=== PATIENT | female | born 1990 | race Caucasian/White ===

== ENCOUNTER 2023-01-06 12:25 | Outpatient (RCR) | payer BC, SELFPAY ==
[2023-01-06 13:22] LABS: HCG Quantitative <1 mIU/mL
== END 2023-02-03 16:57 | disposition home or self-care (01) ==
LOC: LAB 12:25
PROVIDERS: Visit Provider Obstetrics & Gynecology
DX: N92.6 Irregular menstruation, unspecified (principal)
CPT/HCPCS: 36415; 84702

== ENCOUNTER 2023-05-20 09:21 | Outpatient (OUT) | payer BC, SELFPAY ==
--- NOTE | 2023-05-20 09:23 | US_ITS ---
[address] [address] Patient Name: TIA MONROE MRN: [id number] date: 1990 Sex: F Assigned Patient Location: [facility] Current Patient Location: [facility] Accession/Order Number: [id number] Exam Date: 05/20/2023 09:25 Report Date: 05/20/2023 10:43 At the request of: DARWIN MONROY Procedure: US OB transvaginal EXAMINATION: US OB transvaginal HISTORY: Missed menses COMPARISON: No relevant comparison available. FINDINGS: GESTATIONAL SAC: Present YOLK SAC: Present x2 POLE: Present x2 CARDIAC: Present x2 UTERUS: Normal size and appearance. OVARIES: Right: Normal. Left: Not seen. CERVIX: 5.0 cm in length and closed. CUL-DE-SAC: Normal. OTHER: None. AGE BY LMP: 8 weeks 3 days GEM BY LMP: 12/27/2023 AGE BY US CRL: Baby 1: 7 weeks 0 days Baby 2: 7 weeks 1 day GEM BY US CRL: Baby 1: 01/06/2024 Baby 2: 01/05/2024 US/US OB transvaginal IMPRESSION: 1. Live twin intrauterine . Electronically authenticated by: BETTYE DANIELS Date: 05/20/2023 10:43
--- OUTSIDE RECORDS SUMMARY | 2023-05-20 09:27 | XMS_ITS | CCD ---
Author Name Unknown Address [address] [place] [address] Organization [facility] Care Team Providers Care Echocardiography Radiology Technologist Name Role Phone Unavailable Primary Care Provider Unavailabl e Judy, Physician Primary Care Provider Unavailabl e HODA MADERA Unavailable Unavailable Primary Care Provider Unavailannika Kim, Physician Primary Care Provider UnavailGermania Rodriguez Unavailable Roslyn Stevenson Unavailable Radha Pantoja Unavailable Yvonne Santos Unavailable Larissa, Regla Corina Unavailable No, Physician Primary Care Provider UnavailGermania Rodriguez CNP Unavailable Roslyn Stevenson MD Unavailable Radha Pantoja MD Unavailable Yvonne Santos MD Unavailable Larissa CNM, Regla Corina Unavailable Unavailable Primary Care Provider UnavailGermania Rodriguez CNP Unavailable Roslyn Stevenson MD Unavailable Radha Pantoja MD Unavailable Yvonne Santos MD Unavailable Larissapetra COTTON, Regla Corina Unavailable Germania Galaviz CNP Unavailable No, Physician Primary Care Provider Unavailabl e NO, PHYSICIAN Primary Care Unavailable NO, PHYSICIAN Primary Care Unavailable NO, PHYSICIAN Primary Care Unavailable GERMANIA VALENTINO Admitting Unavai lable NO, PHYSICIAN Primary Care Unavailable NO, PHYSICIAN Primary Care Unavailable NO, PHYSICIAN Primary Care Unavailable GERMANIA VALENTINO Admitting Unavai lable NO, PHYSICIAN Primary Care Unavailable YVONNE SANTOS Admitting Unavailable Radha Pantoja MD Unavailable Yvonne Santos MD Unavailable Larissa COTTON, Regla Corina Unavailable Ciera PEDRAZA, Narcis Dawit Primary Care Provider PAPADOPOL, NARCIS DAWIT Admitting Unavaila ble PAPADOPOL, NARCIS DAWIT Primary Care Unavaila ble PAPADOPOL, NARCIS DAWIT Admitting Unavaila ble PAPADOPOL, NARCIS DAWIT Primary Care Unavaila ROSLYN Conley Admitting Unavailabl e ROSLYN STEVENSON Attending Unavailabl e NO, PHYSICIAN Primary Care Unavailable YUKO ALBRECHT Consulting Unavailable LELO GALLEGOS Admitting Unavailable NERIS ULLOA Attending Unavailable LELO GALLEGOS Referring Unavailable NO, PHYSICIAN Primary Care Unavailable YVONNE SANTOS Admitting Unavailable NO, PHYSICIAN Primary Care Unavailable YVONNE SANTOS Admitting Unavailable NO, PHYSICIAN Primary Care Unavailable PAPADOPOL, NARCIS DAWIT Admitting Unavaila ble ANGELITO WARD Attending Unavailable PAPADOPOL, NARCIS DAWIT Referring Unavaila ble PAPADOPOL, NARCIS DAWIT Primary Care Unavaila ble PAPADOPOL, NARCIS DAWIT Attending Unavaila ble PAPADOPOL, NARCIS DAWIT Referring Unavaila ble PAPADOPOL, NARCIS DAWIT Primary Care Unavaila ZELDA Mesa Attending Unavailable NO, PHYSICIAN Primary Care Unavailable LELO GALLEGOS Attending Unavailable NO, PHYSICIAN Primary Care Unavailable HOLLAND ANN Attending Unavail able GERMANIA VALENTINO Referring Unavai lable NO, PHYSICIAN Primary Care Unavailable PAPADOPOL, NARCIS DAWIT Attending Unavaila ble PAPADOPOL, NARCIS DAWIT Primary Care Unavaila ble PAPADOPOL, NARCIS DAWIT Attending Unavaila ble PAPADOPOL, NARCIS DAWIT Primary Care Unavaila ble PAPADOPOL, NARCIS DAWIT Attending Unavaila ble PAPADOPOL, NARCIS DAWIT Primary Care Unavaila ble BRIE ROCA Attending Unavailabl e PAPADOPOL, NARCIS DAWIT Primary Care Unavaila ble Unavailable Primary Care Provider UnavailLinda Marie Primary Care Physician [phone] ELIA[address] ., DR GRANADOS Consulting Unavailable ELIANA ., DR GRANADOS Admitting Unavailable ELIANA ., DR GRANADOS Attending Unavailable EILANA ., DR GRANADOS Consulting Unavailable ELIANA ., DR GRANADOS Admitting Unavailable ELIANA ., DR GRANADOS Attending Unavailable ELIANA ., DR GRANADOS Admitting Unavailable ELIANA ., DR GRANADOS Attending Unavailable LEIANA ., DR GRANADOS Attending Unavailable ELIANA ., DR GRANADOS Consulting Unavailable ELIANA ., DR GRANADOS Admitting Unavailable BETTYE DANIELS Consulting Unavailable Linda Sheppard DO Primary Care Provider ALLEGRA QUINN Attending Unavailable MARK DUMONT Referring Unavailable LINDA SHEPPARD Primary Care Unavailable MARK DUMONT Referring Unavailable LINDA SHEPPARD Primary Care Unavailable LINDA SHEPPARD Primary Care Unavailable DIAB Khushi DINH~[id number] STEVIE Attendi rex Unavailable DIAB Khushi DINH~[id number] STEVIE Attendi ng Unavailable CHET BERUMEN Attending Unavailable LINDA SHEPPARD Primary Care Unavailable CHET BERUMEN Attending Unavailable LINDA SHEPPARD Primary Care Unavailable Jonathan Martinez Attending Unavailable Zac Fields Attending Unavailable Linda Sheppard Referring Unavailable Todd Smart Attending Unavailable MD Todd Smart Admitting Unavailable Medications Current Medications Medication Drug Class(es) Dates Sig (Normalized) Sig (Original) albuterol sulfate HFA 108 (90 Base) MCG/ACT inhaler 2 puff (1 source) Start: 03-26-2020 albuterol sulfate HFA 108 (90 Base) MCG/ACT inhaler 2 puff amoxicillin 500 mg oral capsule (9 sources) Penicillin-class Antibacterial Start: 05-10-2023 End: 05-20-2023 take 1 capsule by mouth three times daily amoxicillin (AMOXIL) 500 MG capsule Take 1 capsule by mouth 3 times daily for 10 days 30 capsule 0 05/10/2023 05/20/2023 Active Start: 07-22-2021 End: 08-01-2021 take 1 capsule by mouth twice daily amoxicillin (AMOXIL) 500 MG capsule Take 1 capsule by mouth 2 times daily for 10 days 20 capsule 0 07/22/2021 08/01/2021 Active Start: 06-03-2020 End: 06-16-2020 take 1 capsule by mouth three times daily amoxicillin (AMOXIL) 250 MG capsule Take 250 mg by mouth 3 (three) times a day . 0 06/03/2020 06/11/2020 Discontinued (Patient's Request) amoxicillin 875 mg / clavulanate 125 mg oral tablet (3 sources) Penicillin-class Antibacterial Start: 05-11-2023 End: 05-18-2023 take 1 tablet by mouth every twelve hours Augmentin 875 mg oral tablet = 1 tab(s), Oral, q12hr, X 7 day(s), # 14 tab(s), Refills(s) 0, Pharmacy: [facility], 160, cm, 05/11/23 21:53:00 EST, Height/Length Dosing, 110, kg, 05/11/23 21:53:00 EST, Weight Dosing Start Date: 05/11/23 Stop Date: 05/18/23 Status: Ordered Start: 09-04-2022 End: 09-04-2022 take 1 tablet by mouth twice daily amoxicillin-clavulanate (AUGMENTIN) 875-125 MG per tablet Take 1 tablet by mouth 2 times daily for 7 days 14 tablet 0 09/04/2022 09/04/2022 Discontinued (ERROR) bacitracin 0.5 unt/mg topical ointment (1 source) Start: 09-04-2022 End: 09-14-2022 bacitracin 500 UNIT/GM ointment Apply topically 2 times daily. 14 g 0 09/04/2022 09/14/2022 Active baclofen 10 mg oral tablet (3 sources) gamma-Aminobutyric Acid-ergic Agonist Start: 04-23-2021 End: 07-22-2021 take 1 tablet by mouth three times daily as needed baclofen (LIORESAL) 10 MG tablet Take 10 mg by mouth 3 (three) times a day as needed . 0 04/24/2021 Active betamethasone 1 mg/ml topical cream (1 source) Corticosteroid Start: 11-03-2019 End: 11-10-2019 betamethasone valerate (VALISONE) 0.1 % cream Apply topically 2 times daily. 15 g 0 11/03/2019 11/10/2019 Active blood-glucose meter kit (4 sources) Start: 06-09-2020 blood-glucose meter kit Use as instructed to check BG QID Dx O24.14 . 1 each 0 06/09/2020 Active brompheniramine maleate 0.4 mg/ml / dextromethorphan hydrobromide 2 mg/ml / pseudoephedrine hydrochloride 6 mg/ml oral solution (2 sources) alpha-Adrenergic Agonist, Uncompetitive C-qfqrxs-N-aspartat e Receptor Antagonist, Sigma-1 Agonist Start: 10-12-2021 End: 11-11-2021 take 5 mL by mouth four times daily as needed for cough brompheniramine-ps eudoephedrine-DM (BROMFED DM) 2-30-10 MG/5ML syrup Take 5 mLs by mouth 4 times daily as needed for Congestion or Cough 240 mL 1 10/12/2021 11/11/2021 Active Start: 11-07-2020 End: 11-12-2020 take 5 mL by mouth three times daily as needed for cough kspffqnfpcmlzab-ovnotzgftsorraf-YH 2-30- 10 MG/5ML syrup Take 5 mLs by mouth 3 times daily as needed for Congestion or Cough 100 mL 0 11/07/2020 11/12/2020 Active cariprazine 1.5 mg oral capsule (7 sources) Atypical Antipsychotic Start: 04-01-2021 End: 05-11-2022 take 1 capsule by mouth once daily Vraylar 1.5 mg capsule Take 1.5 mg by mouth daily . 0 04/01/2021 Active chlorhexidine gluconate 1.2 mg/ml mouthwash (2 sources) Start: 05-11-2023 take 0.018 g by mouth twice daily Peridex 0.12% Liquid 0.018 gm, 15 mL, Oral, BID, 480 mL, Refill(s) 0, (swish and spit; do not swallow), [facility], 160, cm, 05/11/23 21:53:00 EST, Height/Length Dosing, 110, kg, 05/11/23 21:53:00 EST, Weight Dosing Start Date: 05/11/23 Status: Ordered clindamycin 300 mg oral capsule (3 sources) Lincosamide Antibacterial Start: 05-19-2022 End: 05-26-2022 take 1 capsule by mouth three times daily clindamycin (CLEOCIN) 300 MG capsule Take 1 capsule by mouth 3 times daily for 7 days 21 capsule 0 05/19/2022 05/26/2022 Active Start: 02-15-2020 End: 02-15-2020 clindamycin (CLEOCIN) capsul e 300 mg Start: 02-15-2020 End: 02-22-2020 take 1 capsule by mouth three times daily clindamycin (CLEOCIN) 300 MG capsule Take 1 capsule by mouth 3 times daily for 7 days 21 capsule 0 02/15/2020 02/22/2020 Active cyclobenzaprine hydrochloride 10 mg oral tablet (2 sources) Muscle Relaxant Start: 05-11-2022 End: 05-21-2022 take 1 tablet by mouth three times daily as needed for muscle spasms cyclobenzaprine (FLEXERIL) 10 MG tablet Take 1 tablet by mouth 3 times daily as needed for Muscle spasms 9 tablet 0 05/11/2022 05/21/2022 Active Dextromethorphan / guaiFENesin (2 sources) Uncompetitive F-qdjpnk-K-asparta te Receptor Antagonist, Sigma-1 Agonist End: 06-24-2020 Dextromethorphan-gua iFENesin (ROBITUSSIN DM PO) Take by mouth 0 06/24/2020 Discontinued (LIST CLEANUP) Dextromethorphan -guaiFENesin (ROBITUSSIN DM PO) Take by mouth 0 Active diclofenac sodium 75 mg delayed release oral tablet (4 sources) Nonsteroidal Anti-inflammatory Drug Start: 09-04-2022 End: 05-10-2023 take 1 tablet by mouth twice daily as needed for pain diclofenac (VOLTAREN) 75 MG EC tablet Take 1 tablet by mouth 2 times daily as needed for Pain (please take with food) 20 tablet 0 09/04/2022 05/10/2023 Discontinued (LIST CLEANUP) Start: 05-19-2022 End: 09-04-2022 take 1 tablet by mouth twice daily as needed for pain diclofenac (VOLTAREN) 75 MG EC tablet Take 1 tablet by mouth 2 times daily as needed for Pain 20 tablet 0 05/19/2022 09/04/2022 Discontinued (Alternate therapy) doxycycline hyclate 100 mg oral tablet (1 source) Tetracycline-class Drug Start: 11-20-2019 End: 11-30-2019 take 1 tablet by mouth twice daily doxycycline hyclate (VIBRA-TABS) 100 MG tablet Take 1 tablet by mouth 2 times daily for 10 days 20 tablet 0 11/20/2019 11/30/2019 Active escitalopram 10 mg oral tablet (7 sources) Serotonin Reuptake Inhibitor Start: 04-07-2021 take 0.5 tablet by mouth once daily, then take 1 tablet by mouth once daily escitalopram oxalate (LEXAPRO) 10 MG tablet TAKE 1/2 (ONE-HALF) OF A TABLET BY MOUTH daily for 7 (SEVEN) days then take 1 (ONE) tablet by mouth daily 0 04/07/2021 Active End: 05-11-2022 Escitalopram Oxalate (LEXAPR O PO) Take by mouth 0 05/11/2022 Discontinued (LIST CLEANUP) Escitalopram Oxa late (LEXAPRO PO) Take by mouth 0 Active Ethinyl Estradiol / Norgestrel (2 sources) Estrogen Start: 12-29-2020 End: 12-29-2021 take 1 tablet by mouth once daily norgestrel-ethinyl estradioL (LO/OVRAL) 0.3-30 mg-mcg per tablet Take 1 (one) tablet by mouth daily . 30 tablet 11 12/29/2020 12/29/2021 Active ferrous sulfate 325 mg oral tablet (4 sources) Start: 05-23-2020 take 1 tablet by mouth once daily ferrous sulfate 325 (65 FE) MG tablet Take 1 tablet by mouth daily . 0 05/23/2020 Active hydrOXYzine hydrochloride 25 mg oral tablet (3 sources) Antihistamine Start: 11-03-2019 End: 11-13-2019 take 1 tablet by mouth three times daily as needed hydrOXYzine (ATARAX) 25 MG tablet Take 1 tablet by mouth 3 times daily as needed for Itching 15 tablet 0 11/03/2019 11/13/2019 Active Start: 02-25-2018 End: 06-13-2019 take 1 capsule by mouth three times daily as needed hydrOXYzine (VISTARIL) 25 MG capsule Take 25 mg by mouth 3 times daily as needed 0 02/25/2018 06/13/2019 Discontinued (LIST CLEANUP) 100 ml levoFLOXacin 5 mg/ml injection (1 source) Quinolone Antimicrobial Start: 06-14-2019 levofloxacin (LEVAQUIN) 500 MG/100ML infusion 500 mg lidocaine hydrochloride 20 mg/ml mucous membrane topical solution (4 sources) Antiarrhythmic, Amide Local Anesthetic Start: 05-19-2022 lidocaine viscous hc l (XYLOCAINE) 2 % solution 15 mL Start: 02-15-2020 lidocaine visc ous hcl (XYLOCAINE) 2 % solution 15 mL Start: 11-20-2019 End: 11-20-2019 lidocaine 1 % injection 5 mL Start: 06-14-2019 End: 06-17-2019 lidocaine (LIDODERM) 1 patch metFORMIN hydrochloride 500 mg oral tablet (5 sources) Biguanide Start: 06-29-2022 take 500 mg by mouth once daily Glucophage 500 mg, Oral, Daily, Refills(s) 0 Start Date: 06/29/22 Status: Ordered End: 05-10-2023 take 1 tablet by mouth once daily at breakfast metFORMIN (GLUCOPHAGE-XR) 500 MG extended release tablet Take 1 tablet by mouth daily (with breakfast) 0 05/10/2023 Discontinued (LIST CLEANUP) metroNIDAZOLE 500 mg oral tablet (2 sources) Nitroimidazole Antimicrobial Start: 03-23-2021 End: 04-02-2021 take 1 tablet by mouth three times daily metroNIDAZOLE (FLAGYL) 500 MG tablet Take 1 tablet by mouth 3 times daily for 10 days 30 tablet 0 03/23/2021 04/02/2021 Active Start: 11-20-2019 End: 11-30-2019 take 1 tablet by mouth three times daily metroNIDAZOLE (FLAGYL) 500 MG tablet Take 1 tablet by mouth 3 times daily for 10 days 30 tablet 0 11/20/2019 11/30/2019 Active mupirocin 0.02 mg/mg topical ointment (2 sources) RNA Synthetase Inhibitor Antibacterial Start: 09-04-2022 End: 09-04-2022 mupirocin (BACTROBAN) 2 % ointment Apply topically 3 times daily. 3 g 0 09/04/2022 09/04/2022 Discontinued (ERROR) Start: 03-23-2021 End: 03-30-2021 mupirocin (BACTROBAN) 2 % oi ntment Apply topically 3 times daily. 3 g 0 03/23/2021 03/30/2021 Active naltrexone 380 mg injection (5 sources) Opioid Antagonist Start: 05-21-2019 naltrexone microspheres (VivitroL) Inject 380 (three hundred eighty) mg into the shoulder, thigh, or buttocks every 30 (thirty) days . 1 each 3 05/21/2019 Active Non-Formulary Medication (3 sources) Start: 04-23-2011 Non-Formulary Medication Start Date: 04/23/11 Status: Ordered oxyCODONE hydrochloride 5 mg oral tablet (1 source) Opioid Agonist Start: 05-13-2023 End: 05-16-2023 take 1 tablet by mouth every six hours oxyCODONE 5 mg Tab 5 mg = 1 tab(s), Oral, q6hr, X 3 day(s), # 15 tab(s), Refills(s) 0, Pharmacy: [facility], 160, cm, 05/13/23 11:33:00 EST, Height/Length Dosing, 109.3, kg, 05/13/23 11:33:00 EST, Weight Dosing Start Date: 05/13/23 Stop Date: 05/16/23 Status: Ordered PARoxetine hydrochloride 20 mg oral tablet (2 sources) Serotonin Reuptake Inhibitor Start: 04-29-2021 take 0.5 tablet by mouth once daily, then take 1 tablet by mouth once daily PARoxetine (PAXIL) 20 MG tablet TAKE 1/2 (ONE-HALF) OF A TABLET BY MOUTH DAILY FOR 7 DAYS THEN TAKE 1 TABLET BY MOUTH DAILY 0 04/29/2021 Active vitamin with Ca-Iron-FA 27-1 mg Tab (7 sources) Start: 02-02-2021 take 1 tablet by mouth once daily vitamin with Ca-Iron-FA 27-1 mg Tab Take 1 (one) tablet by mouth daily . 90 tablet 3 02/02/2021 Active Start: 01-02-2020 take 1 tablet by harrison th once daily vitamin with Ca-Iron-FA 27-1 mg Tab Take 1 (one) tablet by mouth daily . 90 tablet 3 01/02/2020 Active progesterone (ENDOMETRIN) 100 MG suppository (1 source) progesterone (ENDOMETRIN) [address] 1 suppository vaginally daily 0 Active QUEtiapine 50 mg oral tablet (7 sources) Atypical Antipsychotic Start: 04-01-19 take 1 tablet by mouth once daily QUEtiapine (SEROQUEL) 50 MG tablet Take 50 mg by mouth nightly . 0 04/01/2021 Active End: 05-11-2022 take 1 tablet by mouth once daily QUEtiapine (SEROQUEL XR) 50 MG extended release tablet Take 50 mg by mouth nightly 0 05/11/2022 Discontinued (LIST CLEANUP) sodium chloride 0.111 meq/ml nasal solution (9 sources) Start: 11-07-2020 End: 07-22-2021 sodium chloride (OCEAN) 0.65 % nasal spray 1 spray by Nasal route as needed for Congestion 1 each 0 11/07/2020 07/22/2021 Discontinued (LIST CLEANUP) Start: 03-26-2020 End: 03-26-2020 0.9 % sodium chloride bolus Start: 06-14-2019 End: 06-14-2019 0.9 % sodium chloride bolus sulfamethoxazole 800 mg / trimethoprim 160 mg oral tablet (1 source) Dihydrofolate Reductase Inhibitor Antibacterial, Sulfonamide Antimicrobial Start: 03-23-2021 End: 04-02-2021 take 1 tablet by mouth twice daily sulfamethoxazole-trimethoprim (BACTRIM DS) 800-160 MG per tablet Take 1 tablet by mouth 2 times daily for 10 days 20 tablet 0 03/23/2021 04/02/2021 Active Completed/Discontinued Medications Medication Drug Class(es) Dates Sig (Normalized) Sig (Original) acetaminophen 325 mg oral tablet (12 sources) Start: 06-14-2019 End: 06-17-2019 take 1 tablet by mouth every six hours as needed acetaminophen (TYLENOL) tablet 650 mg End: 05-11-2022 take 2 tablets by mouth every six hours as needed for pain acetaminophen (TYLENOL) 500 MG tablet Take 1,000 mg by mouth every 6 hours as needed for Pain 0 05/11/2022 Discontinued (LIST CLEANUP) acetaminophen 325 mg / HYDROcodone bitartrate 5 mg oral tablet (5 sources) Opioid Agonist Start: 05-11-2022 End: 05-11-2022 HYDROcodone-acetaminophen (NORCO) 5-325 MG per tablet 2 tablet End: 05-10-2023 take 1 tablet by mouth every six hours as needed for pain HYDROcodone-acetaminophen (NORCO) 5-325 MG per tablet Take 1 tablet by mouth every 6 hours as needed for Pain. 0 05/10/2023 Discontinued (LIST CLEANUP) [id number] 200 actuat albuterol 0.09 mg/actuat metered dose inhaler (3 sources) beta2-Adrenergic Agonist Start: 10-12-2021 End: 05-11-2022 take 2 puff(s) by inhalation four times daily as needed for wheezing albuterol sulfate HFA (VENTOLIN HFA) 108 (90 Base) MCG/ACT inhaler Inhale 2 puffs into the lungs 4 times daily as needed for Wheezing 18 g 0 10/12/2021 05/11/2022 Discontinued (LIST CLEANUP) albuterol 0.833 mg/ml / ipratropium bromide 0.167 mg/ml inhalation solution (1 source) Anticholinergic, beta2-Adrenergic Agonist Start: 10-12-2021 End: 10-12-2021 ipratropium-albut elton (DUONEB) nebulizer solution 1 ampule albuterol sulfate HFA 108 (90 Base) MCG/ACT inhaler 4 puff (1 source) Start: 03-26-2020 End: 03-26-2020 albuterol sulfate HFA 108 (90 Base) MCG/ACT inhaler 4 puff aluminum hydroxide 40 mg/ml / magnesium hydroxide 40 mg/ml / simethicone 4 mg/ml oral suspension (1 source) Start: 06-14-2019 End: 06-17-2019 take 30 mL by mouth every four hours as needed 30 mL, Oral, Every 4 hours PRN, indigestion, Starting [facility] 06/14/19 at 0831 azithromycin 250 mg oral tablet (3 sources) Macrolide Antimicrobial Start: 03-26-2020 End: 03-26-2020 azithromycin (ZITHROMAX) tablet 500 mg Start: 03-26-2020 End: 03-30-2020 take 1 tablet by mouth once daily azithromycin (ZITHROMAX) 250 MG tablet Indications: Atypical pneumonia Take 1 tablet by mouth daily for 4 days 4 tablet 0 03/26/2020 03/30/2020 Active Start: 11-20-2019 End: 11-20-2019 azithromycin (ZITHROMAX) tab let 1,000 mg buprenorphine 2 mg / naloxone 0.5 mg sublingual tablet (2 sources) Partial Opioid Agonist, Opioid Antagonist Start: 02-26-2018 End: 06-13-2019 buprenorphine-naloxone (SUBOXONE) 2-0.[address] 1 tablet under the tongue daily as needed.. 0 02/26/2018 06/13/2019 Discontinued (LIST CLEANUP) cefTRIAXone 500 mg injection (1 source) Cephalosporin Antibacterial Start: 11-20-2019 End: 11-20-2019 cefTRIAXone (ROCEPHIN) injection 250 mg dicyclomine hydrochloride 20 mg oral tablet (2 sources) Anticholinergic Start: 02-26-2018 End: 06-13-2019 take 1 tablet by mouth every eight hours as needed dicyclomine (BENTYL) 20 MG tablet Take 20 mg by mouth every 8 hours as needed 0 02/26/2018 06/13/2019 Discontinued (LIST CLEANUP) 1 ml diphenhydrAMINE hydrochloride 50 mg/ml cartridge (1 source) Histamine-1 Receptor Antagonist Start: 06-14-2019 End: 06-14-2019 diphenhydrAMINE (BENADRYL) injection 25 mg Start: 06-14-2019 End: 06-14-2019 diphenhydrAMINE (BENADRYL) i njection 25 mg etonogestrel 68 mg drug implant (2 sources) Progestin End: 06-13-2019 etonogestrel (NEXPLANON) 68 MG implant 68 mg by Subdermal route once 0 06/13/2019 Discontinued (LIST CLEANUP) gabapentin 300 mg oral capsule (3 sources) Anti-epileptic Agent Start: 02-25-2018 End: 06-17-2019 gabapentin (NEURONTIN) capsule 300 mg ibuprofen 800 mg oral tablet (3 sources) Nonsteroidal Anti-inflammatory Drug Start: 05-11-2022 End: 05-19-2022 take 1 tablet by mouth every eight hours as needed for pain ibuprofen (ADVIL;MOTRIN) 800 MG tablet Take 1 tablet by mouth every 8 hours as needed for Pain 30 tablet 0 05/11/2022 05/19/2022 Discontinued (DUPLICATE) End: 02-15-2020 take 3 tablets by mouth every six hours as needed for pain ibuprofen (ADVIL;MOTRIN) 200 MG tablet Take 600 mg by mouth every 6 hours as needed for Pain 0 02/15/2020 Discontinued (Alternate therapy) iopamidol (ISOVUE-370) 76 % injection 75 mL (1 source) Start: 06-13-2019 End: 06-13-2019 iopamidol (ISOVUE-370) 76 % injection 75 mL 2 ml ketorolac tromethamine 30 mg/ml cartridge (13 sources) Nonsteroidal Anti-inflammatory Drug, Cyclooxygenase Inhibitor Start: 09-04-2022 End: 09-04-2022 ketorolac (TORADOL) injection 60 mg Start: 05-19-2022 End: 05-19-2022 ketorolac (TORADOL) injectio n 30 mg Start: 05-11-2022 End: 05-11-2022 ketorolac (TORADOL) injectio n 60 mg Start: 04-23-2021 End: 07-22-2021 take 1 tablet by mouth every eight hours as needed ketorolac (TORADOL) 10 mg tablet Take 10 mg by mouth every 8 (eight) hours as needed . 0 04/24/2021 Active Start: 12-27-2020 End: 12-27-2020 ketorolac (TORADOL) injectio n 30 mg Start: 02-15-2020 ketorolac (TOR ADOL) injection 60 mg Start: 02-15-2020 End: 11-07-2020 take 1 tablet by mouth every six hours as needed for pain ketorolac (TORADOL) 10 MG tablet Take 1 tablet by mouth every 6 hours as needed for Pain 20 tablet 0 02/15/2020 11/07/2020 Discontinued (Therapy completed) Start: 06-13-2019 End: 06-13-2019 ketorolac (TORADOL) injectio n 30 mg magnesium hydroxide 80 mg/ml oral suspension (1 source) Start: 06-14-2019 End: 06-17-2019 take 2400 mg by mouth once daily as needed for constipation 2,400 mg (30 mL), Oral, Daily PRN, constipation, For constipation., Starting [facility] 06/14/19 at 0831 naloxone (NARCAN) injection 0.1 mg (1 source) Start: 06-14-2019 End: 06-17-2019 naloxone (NARCAN) injection 0.1 mg 2 ml ondansetron 2 mg/ml injection (4 sources) Serotonin-3 Receptor Antagonist Start: 06-14-2019 End: 06-14-2019 ondansetron (ZOFRAN) injection 4 mg Start: 06-13-2019 End: 06-13-2019 ondansetron (ZOFRAN) injecti on 4 mg Start: 02-26-2018 End: 06-13-2019 take 1 tablet by mouth every eight hours as needed ondansetron (ZOFRAN-ODT) 4 MG disintegrating tablet Take 4 mg by mouth every 8 hours as needed 0 02/26/2018 06/13/2019 Discontinued (LIST CLEANUP) ondansetron (ZOFRAN-ODT) disintegrating tablet 4 mg (1 source) Start: 06-14-2019 End: 06-17-2019 take 1 tablet by mouth every six hours as needed ondansetron (ZOFRAN-ODT) disintegrating tablet 4 mg 2 ml orphenadrine citrate 30 mg/ml injection (2 sources) Muscle Relaxant Start: 05-19-2022 End: 05-19-2022 orphenadrine (NORFLEX) injection 60 mg Start: 05-11-2022 End: 05-11-2022 orphenadrine (NORFLEX) injec tion 60 mg predniSONE 20 mg oral tablet (6 sources) Start: 10-12-2021 End: 10-12-2021 predniSONE (DELTASONE) table t 60 mg Start: 10-12-2021 End: 05-11-2022 take 1 tablet by mouth once daily predniSONE (DELTASONE) 50 MG tablet Take 50mg po qd x 5 days QS for 5 days 5 tablet 0 10/12/2021 05/11/2022 Discontinued (LIST CLEANUP) Start: 11-03-2019 End: 11-20-2019 predniSONE (DELTASONE) 10 MG tablet 6 for 2 days, 5 for 2 days, 4 for 2 days, 3 for 2 days, 2 for 2 days, 1 for 2 days. 42 tablet 0 11/03/2019 11/20/2019 Discontinued (Therapy completed) Vit-Fe Fumarate-FA ( VITAMINS PO) (3 sources) End: 11-07-2020 Vit-Fe Fumarate-FA ( VITAMINS PO) Take by mouth 0 11/07/2020 Discontinued (Therapy completed) Vit-Fe Fumarate-FA ( VITAMINS PO) Take by mouth 0 Active technetium (Tc-99m) mebrofenin (CHOLETEC) injection 6 millicurie (1 source) Start: 06-15-2019 End: 06-15-2019 technetium (Tc-99m) mebrofenin (CHOLETEC) injection 6 millicurie traMADol hydrochloride 50 mg oral tablet (1 source) Opioid Agonist Start: 06-14-2019 End: 06-17-2019 take 1 tablet by mouth every six hours as needed traMADoL (ULTRAM) tablet 50 mg traZODone hydrochloride 50 mg oral tablet (2 sources) Serotonin Reuptake Inhibitor Start: 02-25-2018 End: 06-13-2019 take 1 tablet by mouth once daily as needed traZODone (DESYREL) 50 MG tablet Take 50 mg by mouth nightly as needed 0 02/25/2018 06/13/2019 Discontinued (LIST CLEANUP) Problems Active Problems Problem Classification Problem Date Documented Date Episodic/Chronic Abdominal pain (1 source) Abdominal pain; Translations: [Abdominal pain, unspecified abdominal location] Episodic Acute bronchitis (1 source) Acute bronchitis; Translations: [Acute bronchitis, unspecified] Episodic Anxiety disorders (20 sources) Anxiety; Translations: [Anxiety disorder, unspecified] Onset: 06-25-2010 06-25-2010 Chronic Disorders of teeth and jaw (17 sources) Toothache; Translations: [Acute gingivitis] Onset: 05-19-2022 Episodic Female infertility (2 sources) Female infertility associated with anovulation; Translations: [Female infertility associated with anovulation] Onset: 12-27-2022 Chronic Hemorrhoids (1 source) Hemorrhoids; Translations: [Unspecified hemorrhoids] Episodic Hepatitis (5 sources) Viral hepatitis without hepatic coma; Translations: [Viral hepatitis C] 06-29-2022 Episodic Immunizations and screening for infectious disease (20 sources) Patient encounter status; Translations: [Encounter for screening for infections with a predominantly sexual mode of transmission] Onset: 12-20-2016 Resolved: 01-02-2020 01-02-2020 Episodic Menstrual disorders (19 sources) Spasmodic dysmenorrhea; 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-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 Mood disorders (19 sources) Depressive disorder; Translations: [Major depressive disorder, single episode, unspecified] Onset: 06-25-2010 06-25-2010 Chronic Other connective tissue disease (1 source) Masseter spasm; Translations: [Other muscle spasm] Episodic Other endocrine disorders (3 sources) Polycystic ovary syndrome 06-29-2022 Chronic Other endocrine disorders (4 sources) Polycystic ovarian syndrome; Translations: [POLYCYSTIC OVARIAN SYNDROME] Onset: 06-29-2022 Chronic Other infections; including parasitic (1 source) Infection by Trichomonas; Translations: [Trichimoniasis] Episodic Other nervous system disorders (1 source) Acute postoperative pain; Translations: [Other acute postprocedural pain] Episodic Other nutritional; endocrine; and metabolic disorders (1 source) Hyperbilirubinemia; Translations: [Hyperbilirubinemia] Chronic Other nutritional; endocrine; and metabolic disorders (6 sources) Overweight; Translations: [Over weight] Onset: 12-20-2016 12-20-2016 Chronic Other nutritional; endocrine; and metabolic disorders (8 sources) Body mass index 40+ - severely obese; Translations: [Body mass index (BMI) 40.0-44.9, adult] Onset: 12-29-2020 12-29-2020 Chronic Other and delivery including normal (1 source) Normal ; Translations: [Encounter for supervision of normal , unspecified, first trimester] Onset: 05-11-2023 Episodic Other screening for suspected conditions (not mental disorders or infectious disease) (20 sources) Cancer cervix - screening done; Translations: [Liver function tests abnormal] Onset: 12-20-2016 Resolved: 01-02-2020 12-20-2016 Episodic Other upper respiratory infections (3 sources) Acute frontal sinusitis; Translations: [Acute frontal sinusitis, unspecified] Episodic Pneumonia (except that caused by tuberculosis or sexually transmitted disease) (1 source) Atypical pneumonia; Translations: [Atypical pneumonia] Episodic Residual codes; unclassified (3 sources) Sleep apnea 06-29-2022 Chronic Residual codes; unclassified (1 source) At risk of disease; Translations: [Other specified personal risk factors, not elsewhere classified] Episodic Skin and subcutaneous tissue infections (1 source) Omphalitis; Translations: [Omphalitis not of ] Episodic Skin and subcutaneous tissue infections (1 source) Furuncle of left axilla; Translations: [Furuncle of left axilla] Spondylosis; intervertebral disc disorders; other back problems (1 source) Chronic low back pain; Translations: [Chronic bilateral low back pain without sciatica] Episodic Sprains and strains (3 sources) Strain of thoracic region; Translations: [Strain of muscle and tendon of back wall of thorax, initial encounter] Episodic Substance-related disorders (20 sources) History of drug abuse; Translations: [Drug abuse in remission] Onset: 06-25-2010 Resolved: 01-02-2020 06-25-2010 Chronic Substance-related disorders (1 source) Accidental heroin overdose; Translations: [Accidental overdose of heroin, initial encounter ([facility])] Episodic Substance-related disorders (1 source) Opioid abuse, in remission; Translations: [History of opioid abuse] Onset: 03-17-2020 03-17-2020 Unclassified (1 source) worsening facial pain Onset: 05-10-2023 Unclassified (2 sources) Ankle Injury; Translations: [Ankle Injury] Onset: 09-04-2022 Urinary tract infections (1 source) Urinary tract infectious disease; Translations: [Urinary tract infection with hematuria, site unspecified] Episodic Viral infection (2 sources) Viral disease; Translations: [Viral infection, unspecified] Episodic Past or Other Problems Problem Classification Problem Date Documented Date Episodic/Chronic Administrative/socia l admission (14 sources) Admission statuses; Translations: [snf (current) use of opiate analgesic] Onset: 05-18-2019 05-18-2019 Episodic Allergic reactions (1 source) Contact dermatitis due to poison arabella; Translations: [Poison arabella] Episodic Contraceptive and procreative management (20 sources) Contraception ; Translations: [Patient encounter status] Onset: 12-20-2016 Resolved: 01-02-2020 12-20-2016 Episodic Diabetes or abnormal glucose tolerance complicating ; childbirth; or the puerperium (19 sources) Gestational diabetes mellitus; Translations: [Gestational diabetes mellitus in , diet controlled] Onset: 06-24-2020 Resolved: 12-29-2020 Episodic Inflammatory diseases of female pelvic organs (15 sources) Acute vaginitis; Translations: [Bacterial vaginosis] Onset: 12-20-2016 Resolved: 01-02-2020 12-20-2016 Episodic Mycoses (14 sources) Candidal vulvovaginitis; Translations: [Candidiasis of vulva and vagina] Onset: 12-20-2016 Resolved: 01-02-2020 12-20-2016 Episodic Nausea and vomiting (19 sources) Nausea; Translations: [Nausea] Onset: 04-08-2011 04-08-2011 Episodic Other complications of (14 sources) Uterine scar from previous surgery in , childbirth and the puerperium; Translations: [Maternal care for low transverse scar from previous delivery] Onset: 12-20-2016 12-20-2016 Episodic Other connective tissue disease (1 source) Other muscle spasm; Translations: [Other muscle spasm] Onset: 05-11-2022 Episodic Other female genital disorders (14 sources) Vaginal discharge; Translations: [Other specified noninflammatory disorders of vagina] Onset: 12-20-2016 Resolved: 01-02-2020 12-20-2016 Episodic Other infections; including parasitic (14 sources) Trichomonal vulvovaginitis; Translations: [Trichomonal vulvovaginitis] Onset: 12-20-2016 Resolved: 01-02-2020 12-20-2016 Episodic Other injuries and conditions due to external causes (9 sources) Elevated urine levels of drugs, medicaments and biological substances; Translations: [Finding of urine substance level] Onset: 01-22-2020 Resolved: 02-02-2021 01-22-2020 Episodic Other nervous system disorders (1 source) Other acute postprocedural pain; Translations: [Other acute postprocedural pain] Onset: 05-11-2022 Episodic Other nutritional; endocrine; and metabolic disorders (20 sources) Body mass index 30+ - obesity; Translations: [Body mass index (BMI) 34.0-34.9, adult] Onset: 12-20-2016 Resolved: 06-11-2020 12-20-2016 Chronic Other nutritional; endocrine; and metabolic disorders (8 sources) Overweight; Translations: [Overweight] Onset: 12-20-2016 12-20-2016 Episodic Residual codes; unclassified (5 sources) Gestation period, 39 weeks; Translations: [39 weeks gestation of ] Onset: 08-28-2020 Resolved: 12-29-2020 12-29-2020 Episodic Sexually transmitted infections (not HIV or hepatitis) (8 sources) Human papillomavirus deoxyribonucleic acid test positive, high risk on cervical specimen; Translations: [Cervical high risk human papillomavirus (HPV) DNA test positive] Onset: 12-20-2016 Resolved: 01-02-2020 01-02-2020 Episodic Sexually transmitted infections (not HIV or hepatitis) (6 sources) Human papillomavirus deoxyribonucleic acid test positive, high risk on cervical specimen; Translations: [Cervical high risk HPV (human papillomavirus) test positive] Onset: 12-20-2016 Resolved: 01-02-2020 12-20-2016 Unclassified (20 sources) Patient encounter status; Translations: [Screen for sexually transmitted diseases] Onset: 12-20-2016 Resolved: 01-02-2020 12-20-2016 Unclassified (6 sources) Cancer cervix screening status; Translations: [Screening for malignant neoplasm of cervix] Onset: 12-20-2016 Resolved: 01-02-2020 12-20-2016 Results Test Name Value Interpretation Reference Range Facility ED Note-Physicianon 05-14-19 ED Note-Physician Basic Information Time Seen: Greg Stratton PA-C 05/13/2023 11:40 Chief Complaint c/o swelling and pain in jaw, has been having teeth issues on top right side of jaw, coming back today d/t swelling and pain worsening was here 2 days ago and was changed to augmentin and given tramadol. 7 weeks and dentist will not see her History of Present Illness 33-year-old female comes to the ED for evaluation of dental pain. She first developed pain to the right maxillary dentition several days ago. She was seen here 2 days ago and started on Augmentin. Continues to have pain swelling and redness to the right side of her face. She is currently 7 weeks . She states that she could not see dentistry until she is cleared by [facility]. She does not have an appointment for [facility] to next week. She has no OB related complaints, no abdominal pain, vaginal discharge or bleeding. No fever, chills, nausea or vomiting. Review of Systems A 10 point review of systems is negative except as noted above. Medical and Surgical History: Reviewed and noted Social history: Lives at home Tobacco: Denies Physical Exam Vitals & Measurements T: 37.0 ?C(Oral) HR: 83(Peripheral) RR: 18 BP: 113/78 SpO2: 97% HT: 160 cm WT: 109.3 kg BMI: 42.7 Nurses notes and vital signs reviewed and patient is not hypoxic. General: The patient appears well, no acute distress. Skin: Warm, dry. Head: Atraumatic. Neck: No soft tissue swelling. Eye: Normal conjunctiva. Ears, Nose, Mouth, and Throat: Tenderness and swelling over the right maxillary region. Intraorally there is tenderness and erythema along the gingiva about the #5 tooth. There are some slight fluctuance. No active drainage. No dental instability. No tonsillar hypertrophy or exudates. Uvula is midline. No associated stridor, trismus or drooling. Cardiovascular: Strong distal pulses. Chest wall: Respiratory: Respirations are nonlabored. Back: Normal range of motion. Musculoskeletal: Normal ROM with no gross deformity. Gastrointestinal: Urological: Neurological: Awake and alert. No focal deficits. Follows commands. Psychiatric: Cooperative. Medical Decision Making Patient with likely dental abscess. There was a small area of bogginess along the gingiva. This was anesthetized with 1 cc of percent lidocaine locally. 18-gauge needle was inserted with a small amount of bloody drainage return. No gross purulence. She will continue with her Augmentin, she only started a couple days ago. She was given a dose of IV Unasyn here prior to discharge. Also given a short supply of pain medications and dentistry referral. Patient was encouraged to return to the ED if symptoms worsen or change. Assessment/Plan Dental abscess (K04.7: Periapical abscess without sinus) Ordered: oxycodone, 5 mg = 1 tab(s), Oral, q6hr, X 3 day(s), # 15 tab(s), Refills(s) 0, Pharmacy: [facility], 160, cm, 05/13/23 11:33:00 EST, Height/Length Dosing, 109.3, kg, 05/13/23 11:33:00 EST, Weight Dosing Orders: ampicillin-sulbacta m + Sodium Chloride 0.9% intravenous solution 100 mL, 3 gram = 1 EA, IV Piggyback, q6hrFT, STAT, Start date 05/13/23 12:18:00 EST, 200 mL/hr, Infuse over 30 minute(s), 05/13/23 12:18:00 EST oxycodone, 5 mg = 1 tab(s), Tab, Oral, Once, Stop date 05/13/23 12:42:00 EST, STAT, Start date 05/13/23 12:42:00 EST, 05/13/23 12:42:00 EST Medications Administered Given ampicillin-sulbacta m additive 3 gm + Sodium Chloride 0.9% intravenous solution 100 mL, IV Piggyback Disposition Plan Patient Discharge Condition Disposition: Discharged home Condition: Improved and stable Counseled: Patient and/or family were counseled to workup, results, treatment plan and follow-up recommendations Discharge Prescription List Prescriptions oxyCODONE 5 mg Tab, 5 mg= 1 tab(s), Oral, q6hr Follow-up With When Contact Information [facility] [employer] [facility] In 3 days 05/16/2023 EDT [address] [place] [address] [facility] (1) Additional Instructions: Dentistry follow-up Patient Education Dental Abscess Attestation I performed a substantive part of the MDM during the patient?s E/M visit. I personally made or approved the documented management plan and acknowledge its risk of complications. (Independent Interpretation) My (EKG/X-Ray/US/CT) interpretation as above. (Discussion) Management/test interpretation discussed with APC. This report was transcribed using voice recognition software. Every effort was made to ensure accuracy, however, inadvertently computerized manager environmental affairs mistakes may be present. Appropriate healthcare PPE was used in evaluating this patient. Problem List/Past Medical History Ongoing Acute hepatitis C Anxiety Apnea, sleep Dental caries PCOS (polycystic ovarian syndrome) Historical No qualifying data Procedure/Surgical History Delivery. Medications Inpatient ampicillin-sulbacta m additive + Sodium Chloride 0.9% intravenous solution 100 (more content not included)... [facility] Comment on above: Result Comment: Elec tronically Signed By: Greg Stratton PA-C\.br\Date and Time Signed: 05/13/23 12:45 EST\.br\Electronically Co-Signed By: Jonathan Martinez DO\.br\Date and Time Co-Signed: 05/14/23 07:40 EST Consent for Treatmenton Consent for Treatment [id number] [facility] Discharge Instructionson Discharge Instructions [id number] [facility] ED Clinical Summaryon 2023 ED Clinical Summary [address] [address] ED Clinical Summary Person Information Name: TIA MONROE/[place] Age: 33 Years : 1990 Sex: Female Language: Lithuanian PCP: Linda Sheppard DO Marital Status: Visit Id: Visit Reason: Facial swelling; Mouth pain; Jaw pain; HAS INFECTION IN MOUTH, JAW PAIN, SWELLING Speciality: Acuity: 4 Enc Type: Emergency Med Service: Emergency Arrival: 05/13/2023 11:19:01 Discharge: 05/13/2023 13:02:15 LOS: 000 01:43 Checkin: 05/13/2023 11:19:01 Checkout: 05/13/2023 13:02:15 Dispo Type: Home (Routine DC) EVENTS: Event Name Event Status Request Date/Time Start Date/Time Complete Date/Time Arrive Complete 05/13/2023 11:19:01 05/13/2023 11:19:01 05/13/2023 11:19:01 Document Home Meds Request 05/13/2023 11:19:01 Triage Complete 05/13/2023 11:19:01 05/13/2023 11:33:33 05/13/2023 11:33:33 Registration Complete 05/13/2023 11:26:04 05/13/2023 11:26:04 05/13/2023 11:26:04 Reg Complete Request 05/13/2023 11:26:04 Reg Bed Request Complete 05/13/2023 11:26:04 05/13/2023 11:26:04 05/13/2023 11:26:04 Bed Assign Complete 05/13/2023 11:33:41 05/13/2023 11:33:41 05/13/2023 11:33:41 Dr Exam Complete 05/13/2023 11:33:41 05/13/2023 11:40:01 05/13/2023 11:40:01 RN Exam Complete 05/13/2023 11:33:41 05/13/2023 11:35:51 05/13/2023 11:35:51 Registration Request 05/13/2023 11:40:01 Dr Exam Complete 05/13/2023 11:41:10 05/13/2023 11:41:10 05/13/2023 11:41:10 Meds Admin Request 05/13/2023 12:19:04 Meds Admin Complete 05/13/2023 12:42:42 05/13/2023 13:00:53 Discharge Complete 05/13/2023 12:45:36 05/13/2023 13:02:19 05/13/2023 13:02:19 Transfer Complete 05/13/2023 13:02:19 05/13/2023 13:02:19 05/13/2023 13:02:19 ADDRESS: [address] [facility] [id number] PHYS DOC NOTES: MEDICAL INFORMATION: Prescriptions Given: New Medications [facility], [address], [place] [id number], [phone] oxycodone (oxyCODONE 5 mg Tab) 1 Tablets By Mouth every 6 hours for 3 Days. Refills: 0. Medications to Continue with No Changes Other Medications amoxicillin-clavula cindi (Augmentin 875 mg oral tablet) 1 Tablets By Mouth every 12 hours for 7 Days. Refills: 0. chlorhexidine topical (Peridex 0.12% Liquid) 15 Milliliter By Mouth 2 times a day. (swish and spit; do not swallow). Refills: 0. metformin (Glucophage) 500 Milligram By Mouth every day. Non-Formulary Medication PATIENT EDUCATION INFORMATION: Instructions: Dental Abscess Follow up: With: Address: When: [place] [phone] Business (1) In 3 days 05/16/2023 Comments: Dentistry follow-up DIAGNOSIS: Dental abscess Normal [facility] ED Patient Education Noteon 05-13-2023 ED Patient Education Note Dentistry Dental Abscess A dental abscess is an infection around a tooth that may involve pain, swelling, and a collection of pus, as well as other symptoms. Treatment is important to help with symptoms and to prevent the infection from spreading. The general types of dental abscesses are: ? Pulpal abscess. This abscess may form from the inner part of the tooth (pulp). ? Periodontal abscess. This abscess may form from the gum. What are the causes? This condition is caused by a bacterial infection in or around the tooth. It may result from: ? Severe tooth decay (cavities). ? Trauma to the tooth, such as a broken or chipped tooth. What increases the risk? This condition is more likely to develop in males. It is also more likely to develop in people who: ? Have cavities. ? Have severe gum disease. ? Eat sugary snacks between meals. ? Use tobacco products. ? Have diabetes. ? Have a weakened disease-fighting system (immune system). ? Do not brush and care for their teeth regularly. What are the signs or symptoms? Mild symptoms of this condition include: ? Tenderness. ? Bad breath. ? Fever. ? A bitter taste in the mouth. ? Pain in and around the infected tooth. Moderate symptoms of this condition include: ? Swollen neck glands. ? Chills. ? Pus drainage. ? Swelling and redness around the infected tooth, in the mouth, or in the face. ? Severe pain in and around the infected tooth. Severe symptoms of this condition include: ? Difficulty swallowing. ? Difficulty opening the mouth. ? Nausea. ? Vomiting. How is this diagnosed? This condition is diagnosed based on: ? Your symptoms and your medical and dental history. ? An examination of the infected tooth. During the exam, your dental care provider may tap on the infected tooth. You may also need to have X-rays taken of the affected area. How is this treated? This condition is treated by getting rid of the infection. This may be done with: ? Antibiotic medicines. These may be used in certain situations. ? Antibacterial mouth rinse. ? Incision and drainage. This procedure is done by making an incision in the abscess to drain out the pus. Removing pus is the first priority in treating an abscess. ? A root canal. This may be performed to save the tooth. Your dental care provider accesses the visible part of your tooth (crown) with a drill and removes any infected pulp. Then the space is filled and sealed off. ? Tooth extraction. The tooth is pulled out if it cannot be saved by other treatment. You may also receive treatment for pain, such as: ? Acetaminophen or NSAIDs. ? Gels that contain a numbing medicine. ? An injection to block the pain near your nerve. Follow these instructions at home: Medicines ? Take [id number] and prescription medicines only as told by your dental care provider. ? If you were prescribed an antibiotic, take it as told by your dental care provider. Do not stop taking the antibiotic even if you start to feel better. ? If you were prescribed a gel that contains a numbing medicine, use it exactly as told in the directions. Do not use these gels for children who are younger than 2 years of age. ? Use an antibacterial mouth rinse as told by your dental care provider. General instructions ? Gargle with a mixture of salt and water 3?4 times a day or as needed. To make salt water, completely dissolve ??1 tsp (3?6 g) of salt in 1 cup (237 mL) of warm water. ? Eat a soft diet while your abscess is healing. ? Drink enough fluid to keep your urine pale yellow. ? Do not apply heat to the outside of your mouth. ? Do not use any products that contain nicotine or tobacco. These products include cigarettes, chewing tobacco, and vaping devices, such as e-cigarettes. If you need help quitting, ask your dental care provider. ? Keep all follow-up visits. This is important. How is this prevented? ? Excellent dental home care, which includes brushing your teeth every morning and night with fluoride toothpaste. Floss one time each day. ? Get regularly scheduled dental cleanings. ? Consider having a dental sealant applied on teeth that have deep grooves to prevent cavities. ? Drink fluoridated water regularly. This includes most tap water. Check the label on bottled water to see if it contains fluoride. ? Reduce or eliminate sugary drinks. ? Eat healthy meals and snacks. ? Wear a mouth guard or face shield to protect your teeth while playing sports. Contact a health care provider if: ? Your pain is worse and is not helped by medicine. ? You have swelling. ? You see pus around the tooth. ? You have a fever or chills. Get help right away if: ? Your symptoms suddenly get worse. ? You have a very bad headache. ? You have problems breathing or swallowing. ? You have trouble opening your mouth. ? (more content not included)... Normal [facility] ED Patient Summaryon 024 ED Patient Summary [address] [address] Patient Discharge Instructions Person Information Name: TIA MONROE Age: 33 Years Arrival Date: 05/13/2023 11:19:01 Discharge Diagnosis: Dental abscess Primary Care Physician: Linda Sheppard DO Provider Information Primary Provider: Jonathan Martinez DO [employer] Merch[employer]iser Development:Greg Stratton PA-C The exam and treatment you received in the Emergency Department were for an urgent problem and are not intended as complete care. It is important that you follow up with a doctor, nurse practitioner, or physician?s editorial assistant for ongoing care. If your symptoms become worse or you do not improve as expected and you are unable to reach your usual health care provider, you should return to the Emergency Department. We are available 24 hours a day. TIA MONROE has been given the following list of patient education materials, prescriptions and follow-up instructions: Follow-up Instructions: With: Address: When: [employer] [address] [place] [phone] Business (1) In 3 days 05/16/2023 Comments: Dentistry follow-up In the event that this physician does not participate in your insurance network, please consult with your insurance company to find a nearby participating provider. Patient Education Materials: Dental Abscess A MESSAGE TO ALL PATIENTS REGARDING OPIOIDS PRESCRIPTION OPIOIDS: WHAT YOU NEED TO KNOW Prescription opioids can be used to help relieve vyaexhkr-xv-ocbdyc pain and are often prescribed following a surgery or injury, or for certain health conditions. These medications can be an important part of the treatment but also come with serious risks. It is important to work with your healthcare provider to make sure you are getting the safest, most effective care. WHAT ARE THE RISKS AND SIDE EFFECTS OF OPIOID USE? Prescription opioids carry serious risks of addiction and overdose, especially with prolonged use. An opioid overdose, often marked by slowed breathing, can cause sudden . The use of prescription opioids can have a number of side effects as well, even when taken as directed: ? Tolerance?meaning you might need to take more of the medication for the same pain relief ? Physical dependence?meaning you have symptoms of withdrawal when a medication is stopped ? Increased sensitivity to pain ? Constipation ? Nausea, vomiting, and dry mouth ? Sleepiness and dizziness ? Confusion ? Depression ? Low levels of testosterone that can result in lower sex drive, energy, and strength ? Itching and sweating RISKS ARE GREATER WITH: ? History of drug misuse, substance use disorder, or overdose ? Mental health conditions (such as depression or anxiety) ? Sleep apnea ? Older age (65 years and older) ? Avoid alcohol while taking prescription opioids. Also, unless specifically advised by your health care provider, medications to avoid include: ? Benzodiazepines (such as Xanax or Valium) ? Muscle relaxants (such as Soma or Flexeril) ? Hypnotics (such as Ambien or Lunesta) ? Other prescription opioids KNOW YOUR OPTIONS Talk to your health care provider about ways to manage your pain that don?t involve prescription opioids. Some of these options may actually work better and have fewer risks and side effects. Options may include: ? Pain relievers such as acetaminophen, ibuprofen, and naproxen ? Some medication that are also used for depression or seizures ? Physical therapy and exercise ? Cognitive behavioral therapy, a psychological, goal-directed approach, in which patients learn how to modify physical, behavioral, and emotional triggers of pain and stress. IF YOU ARE PRESCRIBED OPIOIDS FOR PAIN: ? Never take opioids in greater amounts or more often than prescribed. ? Follow up with your primary health care provider. o Work together to create a plan on how to manage your pain. o Talk about ways to help manage your pain that don?t involve prescription opioids. o Talk about any and all concerns and side effects. ? Help prevent misuse and abuse o Never sell or share prescription opioids. o Never use another person?s prescription opioids. ? Store prescription opioids in a secure place and out of reach of others (this may include visitors, children, friends, and family). ? Safely dispose of unused prescription opioids: Find your community drug take-back program or your pharmacy mail-back program, or flush them down the toilet, following guidance from the Food and Drug Administration (www.fda.gov/Drugs/ ResourcesForYou). ? Visit www.cdc.gov/drugove rdose to learn about the risks of opioids abuse and overdose. ? If you believe you may be struggling with addiction, tell your health acute care occupational therapist and ask for guidance or call SAMHSA?S National Helpline at 6-800-6 (more content not included)... [facility] Discharge Instructionson Discharge Instructions [id number] [facility] ED Clinical Summaryon 2023 ED Clinical Summary [place] [id number] ED Clinical Summary Person Information Name: TIA MONROE Maria Elena/[facility] Age: 33 Years : 1990 Sex: Female Language: Lithuanian PCP: Linda Sheppard DO Marital Status: Visit Id: Visit Reason: Facial swelling; Dental pain; DENTAL PAIN Speciality: Acuity: 4 Enc Type: Emergency Med Service: Emergency Arrival: 05/11/2023 21:25:54 Discharge: 05/11/2023 23:58:53 LOS: 000 02:33 Checkin: 05/11/2023 21:25:54 Checkout: 05/11/2023 23:58:53 Dispo Type: Home (Routine DC) EVENTS: Event Name Event Status Request Date/Time Start Date/Time Complete Date/Time Arrive Complete 05/11/2023 21:25:54 05/11/2023 21:25:54 05/11/2023 21:25:54 Document Home Meds Request 05/11/2023 21:25:54 Triage Complete 05/11/2023 21:25:54 05/11/2023 21:53:23 05/11/2023 21:53:23 Registration Complete 05/11/2023 21:31:50 05/11/2023 21:31:50 05/11/2023 21:31:50 Reg Complete Request 05/11/2023 21:31:50 Reg Bed Request Complete 05/11/2023 21:31:50 05/11/2023 21:31:50 05/11/2023 21:31:50 Bed Assign Complete 05/11/2023 22:52:12 05/11/2023 22:52:12 05/11/2023 22:52:12 Dr Exam Complete 05/11/2023 22:52:12 05/11/2023 22:59:44 05/11/2023 22:59:44 RN Exam Complete 05/11/2023 22:52:12 05/11/2023 23:22:25 05/11/2023 23:22:25 Registration Request 05/11/2023 22:59:44 Dr Exam Complete 05/11/2023 23:00:36 05/11/2023 23:00:36 05/11/2023 23:00:36 Meds Admin Complete 05/11/2023 23:32:38 05/11/2023 23:41:04 Discharge Complete 05/11/2023 23:35:28 05/11/2023 23:59:00 05/11/2023 23:59:00 Meds Admin Complete 05/11/2023 23:54:50 05/11/2023 23:58:20 Transfer Complete 05/11/2023 23:59:00 05/11/2023 23:59:00 05/11/2023 23:59:00 ADDRESS: [address] [facility] [id number] PHYS DOC NOTES: MEDICAL INFORMATION: Prescriptions Given: New Medications [facility], [address], [place] [id number], [phone] amoxicillin-clavula cindi (Augmentin 875 mg oral tablet) 1 Tablets By Mouth every 12 hours for 7 Days. Refills: 0. chlorhexidine topical (Peridex 0.12% Liquid) 15 Milliliter By Mouth 2 times a day. (swish and spit; do not swallow). Refills: 0. Medications to Continue with No Changes Other Medications metformin (Glucophage) 500 Milligram By Mouth every day. Non-Formulary Medication PATIENT EDUCATION INFORMATION: Instructions: Dental Pain, Njak-oj-Neyt Follow up: With: Address: When: Linda Sheppard DO, [address], [address] [place], [place] [id number] In 3 days 05/14/2023 DIAGNOSIS: 1:Pain, dental; 2:Infected dental caries; 3:First trimester ; Periapical abscess without sinus [facility] ED Note-Physicianon 05-12-19 24 ED Note-Physician Basic Information Time Seen: Selena HALL, Violet Damon 05/11/2023 22:59 Chief Complaint pt arrives for c/o dental pain on the right upper side. states cannot see her denitist d/t being . pt states seen in [place] and started on amoxcillin. History of Present Illness Patient is a 7-week 33-year-old female with history of PCOS that presents to the ED with her for evaluation of dental pain. Patient says pain started on Tuesday. She localizes it to the right upper jaw, radiates into her face ear and cheek. She went to [place] ER yesterday and was initiated on amoxicillin and told to take ibuprofen. She says she has been taking ibuprofen, Tylenol using Orajel and has taken 6 doses of amoxicillin none of which is helping. She called her dentist but they will not see her until she is signed off by OB. OB will not see her until she is 8 weeks and she is not scheduled to see them until the of this month. She said she called her family doctor who told her that she should go to the ER or urgent care for further evaluation and all the urgent cares were closed so she came here. Patient rates pain 8/10. It is worse with chewing, talking. She denies odynophagia, dysphagia, drooling, chest pain, shortness of breath, fever, nausea, dysuria, hematuria, vaginal discharge.. Review of Systems A 10 point review of systems is negative except as noted above. Medical and Surgical History: Reviewed and noted Social history: Lives at home Substance use: Former smoker Physical Exam Vitals & Measurements T: 36.7 ?C(Oral) HR: 105(Peripheral) RR: 17 BP: 130/84 SpO2: 97% HT: 160 cm WT: 110 kg BMI: 42.97 Mouth: Tenderness with palpation around tooth 4. Widespread dental caries with multiple missing teeth. Possible developing abscess along the gumline near tooth #1. Uvula midline. Tongue normal. Appearance: Elevated BMI. Appears uncomfortable. Alert and awake. Speaking in complete sentences. Calm. Cooperative. Vital signs reviewed, WNL Skin: Erythema right cheek NECK: Supple. Nml Inspection with good ROM, no palpable adenopathy Eyes: PERRL. Vision grossly intact. ENT: Right TMs normal.. Hearing grossly normal Respiratory: LCTA b/l with normal bilateral excursion. No wheezes, rhonchi, rales. Cardiovascular: RRR, no murmurs. 2+ symmetrical radial and dorsalis pedis pulses. Neuro: Alert and awake, speech Clear, cranial nerves grossly intact. Medical Decision Making Limitations to history: None Nursing Notes: Reviewed and utilized the nursing notes. Previous records reviewed: EMR review, unable to find any information regarding recent ED visit or PCP visit MDM: Patient is a 33-year-old female who presents to the ED for evaluation of dental pain in the setting of early . She has possible developing abscess near tooth #2 although all of her pain is near tooth #4. She has erythema and slight edema of the right maxillary sinus. Normal right TM. No lymphadenopathy. No fever. She has no abdominal pain, vaginal symptoms. Do not feel she necessitates ultrasound imaging at this time. We discussed attempted to treat pain with narcotic however I did do have discussion with patient about the risks to treating pain with narcotics while . Also discussed with patient risk of NSAIDs while . She says the other ER told her to take ibuprofen. Advised that 1 or 2 doses of ibuprofen likely not going to harm baby however I would not continue to take ibuprofen. She would like to be treated with 1 dose of Toradol in the ER because she said that has helped her with her dental pain in the past. I feel that this is reasonable although I told her I would not be comfortable sending her home with Toradol. Given her cheek erythema and continued pain while on amoxicillin I think that she would be better served on a more broad-spectrum antibiotic. Will change antibiotic to Augmentin. I have advised that she should take this medication twice per day for the next 7 days. She should call her OB to see if she can get in sooner. We discussed very strict return precautions including any fevers while on antibiotics, worsening swelling, neck swelling, difficulty swallowing or anything else concerning to her she should return to the ER for lab work and IV antibiotics. Patient is agreeable to this. Will also send her home with a prescription for Peridex. Appropriate for: Outpatient mgmt Assessment/Plan 1. Pain, dental (K08.89: Other specified disorders of teeth and supporting structures) Ordered: amoxicillin-clavula cindi, = 1 tab(s), Oral, q12hr, X 7 day(s), # 14 tab(s), Refills(s) 0, Pharmacy: [facility], 160, cm, 05/11/23 21:53:00 EST, Height/Length Dosing, 110, kg, 05/11/23 21:53:00 EST, Weight Dosing chlorhexidine topical, 0.018 gm, 15 mL, Oral, BID, 480 mL, Refill(s) 0, (swish and spit; do not swallow), [facility], 160, cm, 05/11/23 21:53:00 EST, Height/Length Dosing, 110, kg, 05/11/23 21:53:00 EST, Weight Dosing (more content not included)... [facility] Comment on above: Result Comment: Elec tronically Signed By: Violet Walters PA-C\.br\Date and Time Signed: 05/11/23 23:35 EST\.br\Electronically Co-Signed By: Zac Fields M.D.\.br\Date and Time Co-Signed: 05/12/23 02:49 EST ED Patient Education Noteon 05-12-2023 ED Patient Education Note Dentistry Dental Pain Dental pain is often a sign that something is wrong with your teeth or gums. You can also have pain after a dental treatment. If you have dental pain, it is important to contact your dentist, especially if the cause of the pain is not known. Dental pain may hurt a lot or a little and can be caused by many things, including: ? Tooth decay (cavities or caries). ? Infection. ? The inner part of the tooth being filled with pus (an abscess). ? Injury. ? A crack in the tooth. ? Gums that move back and expose the root of a tooth. ? Gum disease. ? Abnormal grinding or clenching of teeth. ? Not taking good care of your teeth. Sometimes the cause of pain is not known. You may have pain all the time, or it may happen only when you are: ? Chewing. ? Exposed to hot or cold temperatures. ? Eating or drinking foods or drinks that have a lot of sugar in them, such as soda or candy. Follow these instructions at home: Medicines ? Take vswy-ixd-uueswqe and prescription medicines only as told by your dentist. ? If you were prescribed an antibiotic medicine, take it as told by your dentist. Do not stop taking it even if you start to feel better. Eating and drinking Do not eat foods or drinks that cause you pain. These include: ? Very hot or very cold foods or drinks. ? Sweet or sugary foods or drinks. Managing pain and swelling ? If told, put ice on the painful area of your face. To do this: ? Put ice in a plastic bag. ? Place a towel between your skin and the bag. ? Leave the ice on for 20 minutes, 2?3 times a day. ? Take off the ice if your skin turns bright red. This is very important. If you cannot feel pain, heat, or cold, you have a greater risk of damage to the area. Brushing your teeth ? [place] your teeth twice a day using a fluoride toothpaste. ? Use a toothpaste made for sensitive teeth as told by your dentist. ? Use a soft toothbrush. General instructions ? Floss your teeth at least once a day. ? Do not put heat on the outside of your face. ? Rinse your mouth often with salt water. To make salt water, dissolve ??1 tsp (3?6 g) of salt in 1 cup (237 mL) of warm water. ? Watch your dental pain. Let your dentist know if there are any changes. ? Keep all follow-up visits. Contact a dentist if: ? You have dental pain and you do not know why. ? Medicine does not help your pain. ? Your symptoms get worse. ? You have new symptoms. Get help right away if: ? You cannot open your mouth. ? You are having trouble breathing or swallowing. ? You have a fever. ? Your face, neck, or jaw is swollen. These symptoms may be an emergency. Get help right away. Call your local emergency services (911 in the [place] ? Do not wait to see if the symptoms will go away. ? Do not drive yourself to the hospital. Summary ? Dental pain may be caused by many things, including tooth decay, injury, or infection. In some cases, the cause is not known. ? Dental pain may hurt a lot or very little. You may have pain all the time, or you may have it only when you eat or drink. ? Take mqih-dny-jkmsmnc and prescription medicines only as told by your dentist. ? Watch your dental pain for any changes. Let your dentist know if symptoms get worse. This information is not intended to replace advice given to you by your health care provider. Make sure you discuss any questions you have with your health care provider. Document Revised: 11/26/2020 Document Reviewed: 11/26/2020 Elsevier Patient Education ? 2022 [employer] [facility] ED Patient Summaryon 024 ED Patient Summary [address] [address] Patient Discharge Instructions Person Information Name: TIA MONROE Age: 33 Years Arrival Date: 05/11/2023 21:25:54 Discharge Diagnosis: 1:Pain, dental; 2:Infected dental caries; 3:First trimester ; Periapical abscess without sinus Primary Care Physician: Linda Sheppard DO Provider Information Primary Provider: Zac Fields M.D. [employer]:Violet Walters PA-C The exam and treatment you received in the Emergency Department were for an urgent problem and are not intended as complete care. It is important that you follow up with a doctor, nurse practitioner, or physician?s editorial assistant for ongoing care. If your symptoms become worse or you do not improve as expected and you are unable to reach your usual health care provider, you should return to the Emergency Department. We are available 24 hours a day. TIA MONROE has been given the following list of patient education materials, prescriptions and follow-up instructions: Follow-up Instructions: With: Address: When: Linda Sheppard DO [address] [place] [address] [place] , [address] [address] In 3 days 05/14/2023 In the event that this physician does not participate in your insurance network, please consult with your insurance company to find a nearby participating provider. Patient Education Materials: Dental Pain, Qoql-gd-Enay A MESSAGE TO ALL PATIENTS REGARDING OPIOIDS PRESCRIPTION OPIOIDS: WHAT YOU NEED TO KNOW Prescription opioids can be used to help relieve zugqkeiv-qm-xvkhkh pain and are often prescribed following a surgery or injury, or for certain health conditions. These medications can be an important part of the treatment but also come with serious risks. It is important to work with your healthcare provider to make sure you are getting the safest, most effective care. WHAT ARE THE RISKS AND SIDE EFFECTS OF OPIOID USE? Prescription opioids carry serious risks of addiction and overdose, especially with prolonged use. An opioid overdose, often marked by slowed breathing, can cause sudden . The use of prescription opioids can have a number of side effects as well, even when taken as directed: ? Tolerance?meaning you might need to take more of the medication for the same pain relief ? Physical dependence?meaning you have symptoms of withdrawal when a medication is stopped ? Increased sensitivity to pain ? Constipation ? Nausea, vomiting, and dry mouth ? Sleepiness and dizziness ? Confusion ? Depression ? Low levels of testosterone that can result in lower sex drive, energy, and strength ? Itching and sweating RISKS ARE GREATER WITH: ? History of drug misuse, substance use disorder, or overdose ? Mental health conditions (such as depression or anxiety) ? Sleep apnea ? Older age (65 years and older) ? Avoid alcohol while taking prescription opioids. Also, unless specifically advised by your health care provider, medications to avoid include: ? Benzodiazepines (such as Xanax or Valium) ? Muscle relaxants (such as Soma or Flexeril) ? Hypnotics (such as Ambien or Lunesta) ? Other prescription opioids KNOW YOUR OPTIONS Talk to your health care provider about ways to manage your pain that don?t involve prescription opioids. Some of these options may actually work better and have fewer risks and side effects. Options may include: ? Pain relievers such as acetaminophen, ibuprofen, and naproxen ? Some medication that are also used for depression or seizures ? Physical therapy and exercise ? Cognitive behavioral therapy, a psychological, goal-directed approach, in which patients learn how to modify physical, behavioral, and emotional triggers of pain and stress. IF YOU ARE PRESCRIBED OPIOIDS FOR PAIN: ? Never take opioids in greater amounts or more often than prescribed. ? Follow up with your primary health care provider. o Work together to create a plan on how to manage your pain. o Talk about ways to help manage your pain that don?t involve prescription opioids. o Talk about any and all concerns and side effects. ? Help prevent misuse and abuse o Never sell or share prescription opioids. o Never use another person?s prescription opioids. ? Store prescription opioids in a secure place and out of reach of others (this may include visitors, children, friends, and family). ? Safely dispose of unused prescription opioids: Find your community drug take-back program or your pharmacy mail-back program, or flush them down the toilet, following guidance from the Food and Drug Administration (www.fda.gov/Drugs/ ResourcesForYou). ? Visit www.cdc.gov/drugove rdose to learn about the risks of opioids abuse and overdose. ? If you believe you may be struggling with addiction, tell your health acute care occupational therapist an (more content not included)... [facility] Consent for Treatmenton Consent for Treatment [id number] 4 [id number] [facility] Progesteroneon 12-28-2022 Progesterone 12.60 ng/mL [facility] Comment on above: Result Comment: Female: Follicular phase <0.19 ng/mL Ovulation phase 0.06-4.14 ng/mL Luteal phase 4.11-14.5 ng/mL Postmenopausal <0.13 ng/mL Performed By: #### P NICKY #### [facility] [address] [place] [id number] Sample Carrier: Thor Hernández MD Progesteroneon 11-24-2022 Progesterone 7.18 ng/mL High 0.0-0.15 [facility] Comment on above: Result Comment: Female: Follicular phase <0.19 ng/mL Ovulation phase 0.06-4.14 ng/mL Luteal phase 4.11-14.5 ng/mL Postmenopausal <0.13 ng/mL Performed By: #### P NICKY #### [facility] [address] [place], [place] [id number] Sample Carrier: Thor Hernández MD HCG, ,Urineon 09-04 Beta HCG ( test) Ql (U) Negative Normal [facility] Comment on above: Performed By: #### U HCG #### [facility] [address] [place] [address] Sample Carrier: Guero Sandoval MD , Urineon HCG ( test) Ql (U) Negative NEGATIVE [facility] XR ANKLE RIGHT (MIN 3 VIEWS) on 09-04-2022 XR ANKLE RIGHT (MIN 3 VIEWS) EXAM: XR ANKLE RIGHT (MIN 3 VIEWS) INDICATION: Reason for exam:->swelling COMPARISON: None. TECHNIQUE: Radiographs as described above IMPRESSION: FINDINGS/IMPRESSION : No acute displaced fracture identified. Ankle mortise is symmetric. There is a 1 mm tiny calcified body which is remote appearing near the distal fibular tip. Minimal ankle soft tissue edema. Interpreted by: Bettye Johnson MD Signed by: Bettye Johnson MD 09/04/22 Final result [facility] FINDINGS/IMPRESSION : No acute displaced fracture identified. Ankle mortise is symmetric. There is a 1 mm tiny calcified body which is remote appearing near the distal fibular tip. Minimal ankle soft tissue edema. [facility] EXAM: XR ANKLE RIGHT (MIN 3 VIEWS) INDICATION: Reason for exam:->swelling COMPARISON: None. TECHNIQUE: Radiographs as described above [facility] Bettye Johnson MD - 09/04/2022 EXAM: XR ANKLE RIGHT (MIN 3 VIEWS) INDICATION: Reason for exam:->swelling COMPARISON: None. TECHNIQUE: Radiographs as described above IMPRESSION: FINDINGS/IMPRESSION : No acute displaced fracture identified. Ankle mortise is symmetric. There is a 1 mm tiny calcified body which is remote appearing near the distal fibular tip. Minimal ankle soft tissue edema. [facility] Radiology Study observation (narrative) [facility] XR ANKLE RIGHT (MIN 3 VIEWS) Ordered By: Bettye Johnson on 09-04-2022 [facility] Work Phone: Coding Summary.on 07-09-2022 Coding Summary. CD:[id number] bWw+PGhlYWQ+MZ6TLTP nA12gzPCkjG1iP2UXKQ lOSywgQVBQTElOSyIgb wKeYN6zpEVhLMLd IC8+KB6hVLHlWqgwbDV tf2R3aZC6J35bdn6wWD ckhGG3KUEgHuQorqlxm 7gqgYg8CKgoAjdgOjTc PLAhnA23YSQ1xI17Rl2 0vERriHDlr2yifKb7Ju QsRFXjZAX8xNwiZDfhp 0CeXLEhD50sxGUna8D4 IGNvbGxhcHNlOyBlbXB 7kY8bPWwzpeman2mebw roLtx6sq60aXKra3H5r MP7D6YrmiJ9ISHuuRPj LrxbmQZIdA1hvvogi6m xdgjrMgEjCYFxFMh8VP w5QQFofJrfJdEyOL76E ZG5UYQhftAcA4DvGCYh tUcoEdH4y2X6Sm8OX4I GJcpaR7RRJGMZKXjbtQ Q+DW65ul94H2HwFnetK ul4PASrIJC9iWT1kY6q NTOnQDwtq9T0jQU0K3M yypSaro7bp4vcXFIjWS kyC61ewIBar1R8ZGEpz RI5HMIrqQepIeQocX46 Oyc+DZQoaUmhb2SpVpc kg5ijh3zbuFq3RecgKQ QzwuJifFjpVAS7f9XwQ h5zXUUavRG1fCB9qL3q VjAjAsN6RGgkV630RrO gyJSbJhnzP39oO7DsrA A+VKQmNri5SBCduRxmB Y2zM0TfNRRzsiheiACu yNpvPP0eWEQxlzsrOCL txV4kJJVwY7r9GmVvIl P8CIdxJ2FuTABftqxfU v86uS9lNmLtGbI8SZej O7CvqrM7TMWhvXDzMSo qZMA8U92ez3G2BUHsCZ TqFXD1qLJ3tP4blZdyv jogbGVmdDsgdmVydGlj LQorFAylV518TAVevOe nPkNvZGluZyBEYXRlOi AgMDUvMDUvMjAyMzwvd GQ+VSQaRKS7zVskNEFn vNXtIQflSh4wwZhlrKc yXE8nXMXvskmnRCHcmK 2zWUCqhTJelQijMP7sN XVwmvbhn611HiOoWTN6 RRBdiJIkF6WjyN6lKmB jONRhOLBrX1AcnSTbOU dxC889UAhyYbE1JIJhf cNtX2WkMAIqqUrmCpH7 y6P4Re4Zo5KonanpA7X bcPSvApPcSovtGWf4V3 RkPjwvdHI+PV96QIFxL O15YDz9UMN1bKyrLPlh RZIoH6MriN0mRqLmYSG kZGRkOyc+PHRhYmxlIH dpZHRoPScxMDAlJyBzd SyvVS4qWz1fFLJpFYCl hQjfwYGgHeAfr9aoYDB jPPrnSK9cgEaiE4MazN F5HJKoa8h4Mx05K87rI 3JvdXA+HZMemIH5rFY6 uG8tWcDiVrB2CQbmH31 9PdCjkMTwUpraq8dwn8 bygRe6VyD3KAPbplCua AevDOQ2b1TsRc02P37b IHdpZHRoPSIxNSUiIHZ kmHqfua2lgR0hJk4+PG YmoGO6hVJ0mT0lEzKfR fF9MDjeL311RiHoyPEm Cdtyy5zxs2sgvUn1SmJ sLPIgrdFsdVapIEZ7d6 HyKk65D6TncSgvv2GcN cf5xi24wKFfp7C7gWV5 B7ItCUGhroveaUTrpDh sQZ3gXWIgdspnITEbnX 9jMKBpM0x6HyHmEwX7N YszE6YkdsY2AFSsfZGn IZJibFWUeP5jfoubg7w uvobtZsMlLSTvODk0UD g6TPGqkLofQwOkZNB3P zZ3GWK1fZBvzD2ucPco vpqqfR1mCws+GLZ9hUM fcKKFRN9iFdjpgIK+PH GyLOQ3oIixDOhxYPDri I3bYZWgJ1h5TqBcGvJ6 UOfoY7BnpcR1SHLbwSW oQEDxfMALxB7gdudhr4 nerdimCkRzNXOnGTa6R Uy7HORjmFrgHuLmJAV7 XaD7MEU2aBJziD1toBr drtbltZ3tUkz+QmlydG fwQDW2WGw4C3PbZex7A VOobQwvVV6twGDcFKqk Co1upQjgsStcGX7bZTS naeawm214LeHnx9gtBB EmiEUdPOtcDEN7R17re 3M7JWUrCIBpPMI2qTS2 pX0coIbcenaphZUvvHn gdmVydGljYWwtYWxpZ2 52AUPqtBiyCqKqEDn9E 1WxOwk0YRWksHelUT0g jBFiYQsjWw2qsJhhqOp cZL4wJZZopzjlc885Ce Diy9nvNAVzeRFtJBawN OY7E82xx1B0QNAfMULl RGU3iXM6sS9gkYmuwcq gbGVmdDsgdmVydGljYW wqSAaeB853OJXhtQmwZ kHhpPs1L4SoLyi9UIWw fIjbEX1xxOUfPKouAv5 rbEcrdAcnDY6mDSDzju ogn225JzZux8wkTHDxn ODdCMmjBWL1I14sp2J2 PXDkMIWaAOW4kUF9aK0 hbGlnbjogbGVmdDsgdm TlkRitXUulPVyfM140N HRvcDsnPlBhdGllbnQg QUqwHIz0H8XyAiuacWH +IC31YDBoVD15eAAbwT Nef3jrlMr1EvPbYZDsP NS9iBxuNYmoo2KyTLFx N20xwJQmr5V0EOFswKa ydITqGaKveXV4tX3vOY bcvjzxk0npfetuAfakl 3fild85kN47M98bDBfw ZHRoPSIzMCUiIHZhbGl qzo0mqQ5hOs0+PGNvbC F0yLH5pN1wRZRuQfM9C OhqL049QnDfgPPdNaif q5vfy3cucOx2HlB3RLE wbaGepJqoQJC5i3LdLs 71K02qSLfjMYNdTYPhZ ILqOUSdzQuezt0lhL3q Ii8+TFQydND2eYZ6yS5 zNhRfBfW0JEzdH583Kd PcbRKxFfgiY70qM4Wsf XA+DGEaShi6LPFmtMhq DX6omCGuAXczPu4aNBV 7TmLwJvNqECkuP2YqMT YsiyzacddjsNU1ACLsG GTloM23Vh7sxJxpDPLr dJSBoY9rufgve5ugxtk oTlQvVIWeMAz7FGi9UX PrnHavTpKyPQI2FlM5Z DW9lAXjhR2zkIzsqdto bW5vP6ZpUZYzhdevFs7 6lM6fLvMcOaN0SBxdZz c+Su9CCzDCRzeaCuJLQ kRJRTwvdGQ+PHRkIHN0 lNqdTStmTBHirM9dCGC mU8w2GvLwCnL0NXifV9 FxWJSivsjeRb55jI2aI aHtArU6DQwbS5WlojX6 KPLyzUVyGSdqYYZ9I49 iu4X7JXTpPKQuKBJ7fZ I5tV3tyAhttqjqoCUxn DsgdmVydGljYWwtYWxp L505AIMjoKpiMbKsDgF 3PiS0GML3H1XlXje1FC UonVxpQN1osIYvIZxbO b8gvUkqeLxwSD3sDYUq retyKNDogX1iUWEgrRP izMohJG5vLWCoqbhss5 47LjReJXH5TTBwdDXlX 6FotC7dErIyIKHwMLVg D3OauEFeAAcsS450AFf mAaC1WNBvdsKhZ7PyPN QvbNzkAeO9c3V7Ww2tX iBZZWFyczwvdGQ+PHRk TYE9oSthRRwfJUTxpQ0 yLVRvT3u8KrUgRgL0YK mtY0DhGRGoumdlOq28d W3vYyOzCkB7UOsrL9Tq jgS0GUTbyTMeBPkyVBZ 2U84ki7V2YMFuSOOmGW Z6zFA5hZ1zsQmwutktd GVmdDsgdmVydGljYWwt RUzgK376SRQtfKiiTmB lbWFsZTwvdGQ+PHRkIH C4hJrcFOmaQQAblV2cM NMyY2y1FyNlGuM9QLhn K5JkAORrbmclDr53iM2 lEyDkLvU9ENvtQ6Bqkg F7ADKtiNXiUZrfACB9N 24ri3R2MVYjBEHzDOG4 kAF4hI1rgRmqvyzqiLE mdDsgdmVydGljYWwtYW ekX565IYRunHyjCeSuf Y1qBSCxVLtgkEGmcZav dGQ+GE38po89T2CzXns lLdf9MFWtTQZ8wRO9aR 5oRGZiHTxrd2A5dNA9A 5MokpKbqo7ch4vzLKQx AWwnV54tqFWrv8B7HSY qmVS5ZJHosRxkRwHhyM 93Oyc+XGXmaDape2CqK zceo1kfz9dmeKz5XkAu AKDnjwCmzZxuLIM2r3H qKl61U24pARkfXFTsFQ ZrFWGdPDXofNctjf7xf G9wIi8+ANOncRV0gHY2 aL0kJvKtSzL0XPheT65 9IcYmkAHfPoeit9rrg6 wxpOl5QuNoTAJuunUmo OtyCCZ9m3LiXp95A6Sz gEtmy5EhYzv6tk05sBK mf9P6tND6P3JxFYZzgk dgyXEicJwjIR8jAWUxg ubpJZUfjN2eLZPjQ6k9 BhCqNcD7MLkwE7GzxfC 6IGJvbGQgMTBwdCBUaW 0tgjgtu5unhgnuCxSoQ MNaQBb8LBy5MJEvjSrz PeKaTCC7YjK3BFM2sDB beQ5idZoubxzsgS7zEt c+SNq8p4bwjNOfXC1ry TT7FL24DY56mAFlp6T3 oQX6Z7MtSVHhesrpolh ldFL7PYXnULYtlE22Wn 1ciQtmWa1yVNZtUDA3Z TPpoOPlD2SazE7gBlSe RDXyPDFhD2QozZEdWQj fM487BSivSoB3IJBivr DkZ3LvBRWiwAedNcR7o 3Y9Et0XTA06ST22KE88 qGDzz8Q7bAB6U5QaSAC iizusvjvtmNV0UVNeMA QtoX70Ax6bqLiyLz2hY MWvWST3XEOtqTEkA1Kj yY9jPpYgPVJuRJGzG1R tgUHxOLnsR274LDdgWe U3TOUklcMkK1PmNYMsg VdsMmA8e7Q6Mm1YEz99 KW38DD51gDJxp4O3jIN 2R5TkKOUrppvxdfmmbU B4PJUdXWMlxA24Iw7tg NjzVu7vZGBuGYA6HSGn tJVfM4GlhF2bRxLjVHU vYFUoU2AddVXxQHryA5 21FYleEsB9QBMpkyZpU 6KbUEYlaEzgFuI4q1K9 Gb1GQNjsrze5O9HzOcc vdHI+KD50RXKyUS14yS FilLOeo0ubmJj4FzIaF PMvPHQ7lSogGGvuo2Ai NLHkC68h (more content not included)... Normal [facility] Consultation Noteon 07-07-19 Consultation Note Patient: TIA MONROE Age: 32 years Sex: Female : 1990 Associated Diagnoses: None Author: Todd Smart MD Basic Information Accompanied by: No one. Source of history: Self. Referral source: Linda Sheppard DO History limitation: None. Chief Complaint 06/29/2022 9:49 EDT low back pain History of Present Illness 32-year-old female with 2+ year history of low back pain. No inciting injury or trauma. Pain is worse with sitting, bending forward, and repeated lifting. She has a shift positions regularly. The pain does not radiate. Denies red flag symptoms. Patient does have a significant history for drug abuse. She has been off drugs for a couple of years now. The patient uses high-dose ibuprofen regularly which does help. The patient has not started physical therapy yet. Her insurance recently changed after she was referred to physical therapy. Review of Systems Complete review of systems obtained and reviewed. Form scanned. Pertinent findings are noted in the HPI. Health Status Allergies: Allergic Reactions (All) No Known Allergies Current medications: Home Medications (2) Active Glucophage 500 mg, Oral, Daily Non-Formulary Medication Problem list: All Problems Acute hepatitis C / SNOMED CT 021550265 / Confirmed Anxiety / SNOMED CT 69972523 / Confirmed Apnea, sleep / SNOMED CT 118225344 / Confirmed Dental caries / SNOMED CT 433853819 / Confirmed PCOS (polycystic ovarian syndrome) / SNOMED CT 015952421 / Confirmed Histories Past Medical History: Active Dental caries ([id number]) Family History: No family history items have been selected or recorded. Procedure history: No active procedure history items have been selected or recorded. Social History Social & Psychosocial Habits Alcohol 06/29/2022 Risk Assessment: No Risk 06/29/2022 Use: Past Substance Abuse 06/29/2022 Risk Assessment: Medium Risk 06/29/2022 Use: Past Tobacco 06/29/2022 Risk Assessment: Denies Tobacco Use 06/29/2022 Tobacco Use: Former smoker, quit more . Physical Examination Vital Signs (last 24 hrs) Last Charted Heart Rate Peripheral 73 bpm (JUN 29:49) SBP 113 mmHg (JUN 29:49) DBP L 57mmHg (JUN 29:49) Weight 115.6 kg (JUN 29:) BMI 45.04 (JUN 29:) Constitutional: No acute distress. Well-nourished. Well-developed. Eyes: No exudate or deformity. Extraocular muscles are intact. Ears, nose, mouth, and throat: Ears and nose are without deformity. Wears a mask. Neck: No noticeable masses, tracheal deviation, or asymmetry. No thyromegaly on inspection. Respiratory: No gasping or shortness of breath. No accessory muscle use. Cardiovascular: Pulses in extremities are palpable. No noticeable lower extremity edema or varicosities. Gastrointestinal (abdomen): Body habitus consistent with BMI of 45. Lymphatic: No supraclavicular or paracervical lymphadenopathy. Skin: Inspection of skin reveals no rashes, lesions, or ulcers. Normal skin turgor. Psychiatric: Oriented to time, place, and person. Normal mood and affect. Musculoskeletal: Patient arises from a seated position without difficulty. There is no pain with lumbar facet loading bilaterally. There is diffuse tenderness in the midline and paraspinal region of the lower lumbar spine. Sacroiliac joints are nontender to palpation. Good range of motion bilateral hips without pain. Neurologic: 5/5 strength distal lower extremity strength. Normal gait. Able to heel and toe stand. Negative straight leg raise bilaterally. Review / Management Patient reports having had an MRI of the lumbar spine. We do not have that study to review today. Impression and Plan 32-year-old female with chronic axial low back pain that is consistent with vertebral genic/discogenic pain. I would like to review personally the imaging studies of the lumbar spine to further clarify the etiology of pain. The patient and I had a long discussion about the etiology of her pain and potential treatment options. The patient would benefit from weight loss and a physical therapy program focused on core strengthening. I recommend continued use of the ibuprofen. I did offer the patient a longer acting NSAID to take the place of the ibuprofen. She declined. I would like to see the patient back after she has completed a physical therapy program if pain persist. Patient agrees with plan of care. Normal [facility] Comment on above: Result Comment: Elec tronically Signed By: Bing PEDRAZA, Todd Spencer.br\Date and Time Signed: 07/06/22 13:28 EDT DHEA SERUMon 07-04-2022 Dehydroepiandrosterone (DHEA) 220 ng/dL Normal 31-701 [facility] Comment on above: Performed By: #### D KAN. ####[facility] [address] [id number]. Nito Sanchez DHEA-SULFATEon 06-30-2022 DHEA-Sulfate 106.0 ug/dL Normal 84.8-378.0 [facility] Comment on above: Performed By: #### D DEEPTI ####[facility] [address] [id number]. Nito Sanchez FSHon 06-30-2022 FSH 6.6 mIU/mL Normal [facility] Comment on above: Result Comment: Adul t Female: Follicular phase 3.5 - 12.5 Ovulation phase 4.7 - 21.5 Luteal phase 1.7 - 7.7 Postmenopausal 25.8 - 134.8 Performed By: #### L BCFSH #### [facility] [address] [address] [address] Nito Sanchez LUTEINIZING HORMONE (LH)on 0 06-30-2022 LH 18.9 mIU/mL Normal [facility] Comment on above: Result Comment: Adul t Female: Follicular phase 2.4 - 12.6 Ovulation phase 14.0 - 95.6 Luteal phase 1.0 - 11.4 Postmenopausal 7.7 - 58.5 Performed By: #### L BCLH #### [facility] [address] [address] [address] Nito Sanchez PROLACTINon 06-30-2022 Prolactin 5.3 ng/mL Normal 4.8-23.3 [facility] Comment on above: Performed By: #### P ROLAC #### [facility] [address] [address] [address] Nito Sanchez CBC AUTO DIFFon 06-29-2022 BASO # 0.1 103/ul Normal 0.0-0.1 [facility] Comment on above: Performed By: #### C BC #### [facility] Laboratory [address] [place] [address] Dr. Nito Sanchez Basophils/100 WBC (Bld) 0.5 % Normal 0.2-2.0 [facility] Comment on above: Performed By: #### C BC #### [facility] [address] [place] [address] Dr. Nito Sanchez EO # 0.2 103/ul Normal 0.0-0.7 [facility] Comment on above: Performed By: #### C BC #### [facility] [address] [place] [address] Dr. Nito Sanchez Eosinophils/100 WBC (Bld) 1.6 % Normal 0.9-7.0 [facility] Comment on above: Performed By: #### C BC #### [facility] [address] [place] [address] Dr. Nito Sanchez Erythrocyte distribution width (RBC) [Ratio] 13.6 % Normal 11.0-15.0 [facility] Comment on above: Performed By: #### C BC #### [facility] [address] [place] [address] Dr. Nito Sanchez Hematocrit (Bld) [Volume fraction] 39.7 % Normal 36.0-48.0 [facility] Comment on above: Performed By: #### C BC #### [facility] [address] [place] [address] Dr. Nito Sanchez Hemoglobin (Bld) [Mass/Vol] 13.1 g/dL Normal 12.0-16.0 [facility] Comment on above: Performed By: #### C BC #### [facility] [address] [place] [address] Dr. Nito Sanchez IG # 0.05 10e3/ul Critically high 0.00-0.03 [facility] Comment on above: Performed By: #### C BC #### [facility] [address] [place] [address] Dr. Nito Sanchez IG % 0.5 % Normal 0.0-0.5 [facility] Comment on above: Performed By: #### C BC #### [facility] [address] [place] [address] Dr. Nito Sanchez LYMPH # 2.6 103/ul Normal 1.2-3.8 [facility] Comment on above: Performed By: #### C BC #### [facility] [address] [place] [address] Dr. Nito Sanchez Lymphocytes/100 WBC (Bld) 25.3 % Normal 20.5-60.0 [facility] Comment on above: Performed By: #### C BC #### [facility] [address] [place] [address] Dr. Nito Sanchez MANUAL DIFF REQ NO Normal [facility] Comment on above: Performed By: #### C BC #### [facility] [address] [place] [address] Dr. Nito Sanchez MCH (RBC) [Entitic mass] 27.1 pg Normal 26.7-34.0 [facility] Comment on above: Performed By: #### C BC #### [facility] [address] [place] [address] Dr. Nito Sanchez MCHC (RBC) [Mass/Vol] 33.0 g/dL Normal 29.9-35.2 [facility] Comment on above: Performed By: #### C BC #### [facility] [address] [place] [address] Dr. Nito Sanchez MCV (RBC) [Entitic vol] 82.2 fL Normal 81.0-99.0 [facility] Comment on above: Performed By: #### C BC #### [facility] [address] [place] [address] Dr. Nito Sanchez MONO # 0.5 103/ul Normal 0.3-0.8 [facility] Comment on above: Performed By: #### C BC #### [facility] [address] [place] [address] Dr. Nito Sanchez Monocytes/100 WBC (Bld) 5.0 % Normal 1.7-12.0 [facility] Comment on above: Performed By: #### C BC #### [facility] [address] [address] [address] Nito Sanchez NEUT # 6.9 103/ul Critically high 1.4-6.5 [facility] Comment on above: Performed By: #### C BC #### [facility] [address] [address] [address] Nito Sanchez Neutrophils/100 WBC (Bld) 67.1 % Normal 43.0-75.0 [facility] Comment on above: Performed By: #### C BC #### [facility] [address] [address] [address] Nito Sanchez Platelet mean volume (Bld) [Entitic vol] 10.0 fL Normal 9.5-13.5 [facility] Comment on above: Performed By: #### C BC #### [facility] [address] [place] [address] Dr. Nito Sanchez PLT 313 103/ul Normal 150-450 [facility] Comment on above: Performed By: #### C BC #### [facility] [address] [address] [address] Nito Sanchez RBC 4.83 106/ul Normal 4.20-5.40 [facility] Comment on above: Performed By: #### C BC #### [facility] [address] [place] [address] Dr. Nito Sanchez WBC 10.3 103/ul Normal 4.0-11.0 [facility] Comment on above: Performed By: #### C BC #### [facility] [address] [address] [address] Nito Sanchez Consent for Treatmenton 06-06 Consent for Treatment [id number] 650#1.00CD:127 Normal [facility] FREE T4on 06-29-2022 Free T4 [Mass/Vol] 1.01 ng/dL Normal 0.76-1.46 [facility] Comment on above: Performed By: #### F T4 #### [facility] [address] [address] [address] Nito Sanchez GLYCOHEMOGLOBIN A1Con 2022 ADA RECOMMENDATION SEE BELOW Normal [facility] Comment on above: Result Comment: ADA RECOMMENDED LIMIT 4.0 - 6.0 ADA THERAPEUTIC TARGET < 7.0 ACTION SUGGESTED > 7.0 Performed By: #### A 1C #### [facility] [address] [address] [address] Ntio Sanchez Glucose [Mass/Vol] 108 mg/dL Normal [facility] Comment on above: Performed By: #### A 1C #### [facility] [address] [address] [address] Nito Sanchez HbA1c (Bld) [Mass fraction] 5.4 % Normal 4.5-6.2 [facility] Comment on above: Performed By: #### A 1C #### [facility] [address] [place] [address] Dr. Nito Sanchez HIPAA Forms Officeon 023 HIPAA Forms Office [id number] 602#1.00CD:127 Normal [facility] Legal Correspondence Officeo n 06-29-2022 Legal Correspondence Office [id number] 270#1.00CD:127 Normal [facility] Legal Correspondence Office [id number] 787#1.00CD:127 Normal [facility] Office/Clinic Note-Physician on 06-29-2022 Office/Clinic Note-Physician [id number] 515#1.00CD:127 Normal [facility] Orders Officeon 06-29-2022 Orders Office [id number] 642#1.00CD:127 Normal [facility] PREG QUANT HCGon 06-29-2022 HCG QUANT 1 mIU/mL Normal [facility] Comment on above: Performed By: #### T SH, PREGQNT #### [facility] [address] [place], [place] [address] Dr. Nito Sanchez HCG RANGE SEE BELOW Normal [facility] Comment on above: Result Comment: 5-50 0.2-1 WEEK 50-500 1-2 WEEKS 100-5,000 2-3 WEEKS 500-10,000 3-4 WEEKS 1,000-50,000 4-5 WEEKS 10,000-100,000 5-6 WEEKS 15,000-200,000 6-8 WEEKS 10,000-100,000 2-3 MONTHS Performed By: #### T SH, PREGQNT #### [facility] [address] [place], [place] [address] Dr. Nito Sanchez Patient Correspondenceon Patient Correspondence [id number] 946#1.00CD:127 Normal [facility] Patient Correspondence [id number] 137#1.00CD:127 Normal [facility] Patient Correspondence [id number] 273#1.00CD:127 Normal [facility] Patient Correspondence [id number] 879#1.00CD:127 Normal [facility] Patient Correspondence [id number] 956#1.00CD:127 Normal [facility] Patient History Officeon Patient History Office [id number] 983#1.00CD:127 Normal [facility] Patient History Office [id number] 721#1.00CD:127 Normal [facility] Radiology Outside Office Residential Sales Manager yon 06-29-2022 Radiology Outside Office Copy [id number] 142#1.00CD:127 Normal [facility] TSHon 06-29-2022 TSH 0.848 uIU/mL Normal 0.358-3.740 [facility] Comment on above: Performed By: #### T SH, PREGQNT #### [facility] [address] [address] [address] Nito Sanchez US PELVIS AND TRANSVAGon US PELVIS AND TRANSVAG EXAMINATION: US PELVIS AND TRANSVAG HISTORY: Polycystic ovary syndrome COMPARISON: No relevant comparison available. TECHNIQUE: Transabdominal and transvaginal sonographic examination. FINDINGS: UTERUS: Slightly prominent. No appreciable mass. Small amount of fluid within cervical canal, likely blood products. Uterus size: 11.7 x 5.3 x 7.0 cm ENDOMETRIUM: Homogeneous, but thickened. Endometrial thickness: 15 mm RIGHT OVARY: Normal size and appearance. Blood flow present within ovary on color Doppler. Ovary size: 2.5 x 1.4 x 2.3 cm LEFT OVARY: Not seen. No suspicious adnexal findings. CUL-DE-SAC: Unremarkable. No significant free fluid. BLADDER: Unremarkable. OTHER: None. IMPRESSION: 1. Slightly thickened endometrium; correlate with patient's stage in her menstrual cycle. Possible endometrial hyperplasia. 2. Left ovary is not seen. No significantly increased follicles within right ovary to suggest polycystic ovarian syndrome. Electronically authenticated by: BETTYE DANIELS Date: 2022-06-29 15:17 Normal [facility] PAP ACOG PANEL 2: 30 to 65on 06-19-2022 . . Normal [facility] Comment on above: Result Comment: Perf ormed at: WB Performed By: #### 4 [id number] #### [facility] [address] [address] [address] Nito Sanchez Age Gdln ACOG Testing 30-65 Normal [facility] Comment on above: Performed By: #### 4 [id number] #### [facility] [address] [address] [address] Nito Sanchez DIAGNOSIS: Comment Normal [facility] Comment on above: Result Comment: NEGA TIVE FOR INTRAEPITHELIAL LESION OR MALIGNANCY. Performed at: WB Performed By: #### [id number] #### [facility] [address] [address] [address] Nito Sanchez HPV Aptima Negative Normal Negative [facility] Comment on above: Result Comment: This nucleic acid amplification test detects fourteen high-risk HPV types (16,18,31,33,35,39,45,51,52,56,58,59,66,68) without differentiation. Performed at: =G Performed By: #### 4 [id number] #### [facility] Laboratory [address] [place] [address] Dr. Nito Sanchez HPV Genotype Reflex Comment Normal [facility] Comment on above: Result Comment: Crit eria not met, HPV Genotype not performed. Performed at: WB Performed By: #### [id number] #### [facility] Laboratory [address] [place] [address] Dr. Nito Sanchez Methodology: Comment Normal [facility] Comment on above: Result Comment: This liquid based ThinPrep(R) pap test was screened with the use of an image guided system. Performed at: WB Performed By: #### 4 [id number] #### [facility] Laboratory [address] [place] [address] Dr. iNto Sanchez Note: Comment Normal [facility] Comment on above: Result Comment: The Pap smear is a screening test designed to aid in the detection of premalignant and malignant conditions of the uterine cervix. It is not a diagnostic procedure and should not be used as the sole means of detecting cervical cancer. Both false-positive and false-negative reports do occur. . Performed at: WB Performed By: #### 4 [id number] #### [facility] [address] [place] [address] Dr. Nito Sanchez Performed by: Comment Normal [facility] Comment on above: Result Comment: Nanda Treadwell, Industrial Engineering Technician (ASCP) Performed at: WB Performed By: #### [id number] #### [facility] [address] [place] [address] Dr. Nito Sanchez Specimen adequacy: Comment Normal [facility] Comment on above: Result Comment: Sati sfactory for evaluation. Endocervical and/or squamous metaplastic cells (endocervical component) are present. Performed at: WB Performed By: #### 4 [id number] #### [facility] [address] [place] [address] MAXILLOFACIAL WO CONTRAST on 05-11-2022 CT MAXILLOFACIAL WO CONTRAST EXAM: CT MAXILLOFACIAL WO CONTRAST HISTORY: right jaw pain, tooth removal 13:00 today, pain out of proportion, difficult to masticate COMPARISON: None. TECHNIQUE: Axial CT scans of the maxillofacial structures were obtained without contrast. MPR images were obtained. Dose reduction techniques were achieved by using: automated exposure control and/or adjustment of mA and /or kV according to patient size and/or use of iterative reconstruction technique. FINDINGS: Reason extraction of the right mandibular and maxillary second molar teeth with presence of air in the tooth sockets. Periapical radiolucency at the root apices of the right maxillary premolar tooth adjacent to the first molar tooth. No evidence of edema in the sublingual space or the buccal space. The intraorbital contents appear normal. The paranasal sinuses are clear. The visualized intracranial contents show no acute process. IMPRESSION: Recent extraction of the right mandibular and maxillary second molar teeth with presence of air in the respective tooth sockets. No evidence of edema in the sublingual space or the buccal space Probable periapical abscess involving the right maxillary premolar tooth adjacent to the first molar tooth. Interpreted by: Phil Mary MD Signed by: Phil Mary MD 05/11/22 Final result Normal [facility] Recent extraction of the right mandibular and maxillary second molar teeth with presence of air in the respective tooth sockets. No evidence of edema in the sublingual space or the buccal space Probable periapical abscess involving the right maxillary premolar tooth adjacent to the first molar tooth. [facility] CON[facility] EXAM: CT MAXILLOFACIAL WO CONTRAST HISTORY: right jaw pain, tooth removal 13:00 today, pain out of proportion, difficult to masticate COMPARISON: None. TECHNIQUE: Axial CT scans of the maxillofacial structures were obtained without contrast. MPR images were obtained. Dose reduction techniques were achieved by using: automated exposure control and/or adjustment of mA and /or kV according to patient size and/or use of iterative reconstruction technique. FINDINGS: Reason extraction of the right mandibular and maxillary second molar teeth with presence of air in the tooth sockets. Periapical radiolucency at the root apices of the right maxillary premolar tooth adjacent to the first molar tooth. No evidence of edema in the sublingual space or the buccal space. The intraorbital contents appear normal. The paranasal sinuses are clear. The visualized intracranial contents show no acute process. [facility] Phil Mary MD - 05/11/2022 EXAM: CT MAXILLOFACIAL WO CONTRAST HISTORY: right jaw pain, tooth removal 13:00 today, pain out of proportion, difficult to masticate COMPARISON: None. TECHNIQUE: Axial CT scans of the maxillofacial structures were obtained without contrast. MPR images were obtained. Dose reduction techniques were achieved by using: automated exposure control and/or adjustment of mA and /or kV according to patient size and/or use of iterative reconstruction technique. FINDINGS: Reason extraction of the right mandibular and maxillary second molar teeth with presence of air in the tooth sockets. Periapical radiolucency at the root apices of the right maxillary premolar tooth adjacent to the first molar tooth. No evidence of edema in the sublingual space or the buccal space. The intraorbital contents appear normal. The paranasal sinuses are clear. The visualized intracranial contents show no acute process. IMPRESSION: Recent extraction of the right mandibular and maxillary second molar teeth with presence of air in the respective tooth sockets. No evidence of edema in the sublingual space or the buccal space Probable periapical abscess involving the right maxillary premolar tooth adjacent to the first molar tooth. [employer] Work Phone: Radiology Study observation (narrative) [employer] Work Phone: CT MAXILLOFACIAL WO CONTRAST Ordered By: Phil Mary on 05-11-2022 [facility] [place] [employer] Work Phone: HCG, ,Urineon 05-11 Beta HCG ( test) Ql (U) Negative Normal NEG [facility] Comment on above: Performed By: #### U HCG #### [facility] [address] [place] [address] Sample Carrier: Guero Sandoval MD Urine Preg (Lab)on 3 Beta HCG ( test) Ql (U) Negative NEGATIVE [facility] [place] [facility] HCG, Quantitative, on 03-29-2022 hCG Quant NINF [facility] Comment on above: Non-preg premeno <=5 Postmeno <=8 Male <=3 If HCG results do not concur with clinical observations, additional testing to confirm results is recommended. ALEXANDRA SIVA [facility] COVID-19, Rapidon 07-22-2021 SARS-CoV-2 (COVID-19) RNA KALPESH+probe Ql (Unsp spec) Not detected Not Detected [facility] Comment on above: Rapid NAAT: The specimen is NEGATIVE for SARS-CoV-2, the novel coronavirus associated with COVID-19. The ID NOW COVID-19 assay is designed to detect the virus that causes COVID-19 in patients with signs and symptoms of infection who are suspected of COVID-19. An individual without symptoms of COVID-19 and who is not shedding SARS-CoV-2 virus would expect to have a negative (not detected) result in this assay. Negative results should be treated as presumptive and, if inconsistent with clinical signs and symptoms or necessary for patient management, should be tested with an alternative molecular assay. Negative results do not preclude SARS-CoV-2 infection and should not be used as the sole basis for patient management decisions. Fact sheet for Healthcare Providers: https://www.fda.gov/media/498809/download Fact sheet for Patients: https://www.fda.gov/media/605629/download Methodology: Isothermal Nucleic Acid Amplification Specimen Description .NASOPHARYNGEAL SWAB [facility] Strep Screen Group A Throato n 07-22-2021 S. pyogenes Ag Ql (Throat) Negative NEGATIVE [facility] Comment on above: Rapid Strep A negati ve. A negative Rapid Group A Strep Screen result does not rule out the possibility of Group A Streptococci in the specimen. A Group A Strep DNA test is available upon request. Source .THROAT SWAB [facility] MR LUMBAR SPINE WITHOUT CONT [facility] 06-17-2021 MR LUMBAR SPINE WITHOUT CONTRAST EXAMINATION: MR LUMBAR SPINE WITHOUT CONTRAST HISTORY: ORDERING SYSTEM PROVIDED HISTORY: Lumbar radiculopathy, symptoms persist with conservative treatment; Chronic low back pain not improved with medications, TECHNOLOGIST PROVIDED HISTORY: Illness/Other Reason for exam: LBP AND bilat hip pain x years, nki Encounter Type: Subsequent/Follow-u p Additional signs and symptoms: . ORDERING SYSTEM PROVIDED DIAGNOSIS CODES: M54.50 Chronic bilateral low back pain without sciatica G89.29 Chronic bilateral low back pain without sciatica COMPARISON: None. TECHNIQUE: Multiplanar and multisequence imaging of the lumbar spine was performed without contrast. FINDINGS: There is a small rudimentary disc space at the S1-S2 level with partial lumbarization of S1. There is no fracture or spondylolisthesis. Motion artifact mildly degrades evaluation. The vertebral body heights and disc spaces are maintained. No acute abnormality is identified involving visualized intrapelvic or intraabdominal structures. The visualized aorta is normal in diameter. No discrete renal lesion is evident. The upper sacrum is intact. There are no pars defects. The conus demonstrates normal signal intensity terminating at the L1-L2 level. L5-S1: There is endplate spurring and mild facet arthropathy without central or foraminal stenosis. L4-L5: There is mild facet arthropathy and mild endplate spurring without central or foraminal stenosis. L3-L4: There is mild endplate spurring and mild facet arthropathy without central or foraminal stenosis. L2-L3: No focal disc herniation is evident. There is no central or foraminal stenosis. L1-L2: There is no focal disc herniation. There is no central or foraminal stenosis. IMPRESSION: 1. There is mild endplate spurring and mild facet arthropathy in the lumbar spine as described above with no central or foraminal stenosis. 2. No fracture or spondylolisthesis. [facility] Workstation ID: [id number] Dictated by: JONATHAN LINARES on TueJun 18, 2021 11:51:00 AM EDT Transcribed by: ZULMA CARDENAS on TueJun 18, 2021 11:58:13 AM EDT Finalized by: JONATHAN LINARES on TueJun 18, 2021 12:35:45 PM EDT Normal [facility] Comment on above: Order Comment: Injur y/Trauma or Illness?:Illness/Other How long have you had these symptoms (acute/chronic)?:Chronic Reason for exam?:LBP AND bilat hip pain x years, nki Type of Exam?:Subsequent/Follow-up Additional signs and symptoms?:. CBC panel Auto (Bld)on 04-16 Erythrocyte distribution width (RBC) [Entitic vol] 14.0 % 11.6 - 14.8 % [facility] Hematocrit (Bld) [Volume fraction] 38.6 % 36.0 - 46.0 % [facility] Hemoglobin (Bld) [Mass/Vol] 12.1 g/dL 12.0 - 16.0 g/dL [facility] Interpretation and review of laboratory results Abnormal [facility] MCH (RBC) [Entitic mass] 25.4 pg Low 26. 0 - 34.0 pg [facility] MCHC (RBC) [Mass/Vol] 31.3 g/dL 31.0 - 37.0 g/dL [facility] MCV (RBC) [Entitic vol] 81.1 fL 80.0 - 100.0 fL [facility] Platelet mean volume (Bld) [Entitic vol] 10.0 fL 9.4 - 12.4 fL [facility] Platelets (Bld) [#/Vol] 379 10*3/uL [facility] RBC (Bld) [#/Vol] 4.76 10*6/uL [facility] WBC (Bld) [#/Vol] 9.85 10*3/uL [facility] Comprehensive metabolic 2000 panelon 04-16-2021 Albumin [Mass/Vol] 3.7 g/dL 3.2 - 5.2 g/dL [facility] ALP [Catalytic activity/Vol] 95 U/L 40 - 140 U/L [facility] ALT [Catalytic activity/Vol] 36 U/L 14 - 65 U/L [facility] Anion gap [Moles/Vol] 11 mmol/L 10 - 2 0 mmol/L [facility] AST [Catalytic activity/Vol] 22 U/L 0 - 45 U/L [facility] Bilirubin [Mass/Vol] 0.3 mg/dL 0.0 - 1 .3 mg/dL [facility] Calcium [Mass/Vol] 9.3 mg/dL 8.4 - 10. 2 mg/dL [facility] Chloride [Moles/Vol] 105 mmol/L 98 - 10 8 mmol/L [facility] Creatinine [Mass/Vol] 0.68 mg/dL 0.40 - 1.10 [facility] GFR/1.73 sq M.predicted CKD-EPI (S/P/Bld) [Vol rate/Area] 117 >=60 mL/min/1.73 m2 [facility] Glucose [Mass/Vol] 76 mg/dL 65 - 99 mg/dL [facility] HCO3 [Moles/Vol] 26 mmol/L 21 - 32 mmol/L [facility] Interpretation and review of laboratory results Normal [facility] Potassium [Moles/Vol] 4.2 mmol/L 3.5 - 5.1 mmol/L [facility] Protein [Mass/Vol] 7.5 g/dL 6.0 - 8.0 g/dL [facility] Sodium [Moles/Vol] 138 mmol/L 135 - 145 mmol/L [facility] Urea nitrogen [Mass/Vol] 13 mg/dL 8 - 25 mg/dL [facility] Urea nitrogen/Creatinine [Mass ratio] 19.1 mg/mg [facility] The eGFR should be used for monitoring renal function only and not for medication dosing. [facility] Lipid 1996 panelon 2 Cholesterol [Mass/Vol] 195 mg/dL 100 - 199 mg/dL [facility] Comment on above: National Cholesterol Education Program Guidelines: Cholesterol Desirable: <200 mg/dL Borderline High: 200-239 mg/dL High: greater than or equal to 240 mg/dL Cholesterol in HDL [Mass/Vol] 56 mg/dL 40 - 59 [facility] Comment on above: National Cholesterol Education Program Guidelines: HDL Cholesterol Low: <40 mg/dL Near Optimal: 40-59 mg/dL High: greater than or equal to 60 mg/dL Cholesterol in LDL [Mass/Vol] 109 mg/dL 10 - 130 mg/dL [facility] Comment on above: National Cholesterol Education Program Guidelines: LDL Cholesterol Optimal: <100 mg/dL Near Optimal/above Optimal: 100-129 mg/dL Borderline High: 130-159 mg/dL High: 160-189 mg/dL Very High: greater than or equal to 190 mg/dL Cholesterol non HDL [Mass/Vol] 139 mg/dL [facility] Comment on above: National Cholesterol Education Program Guidelines: NON HDL Cholesterol Desirable: <130 mg/dL Borderline High: 130-159 mg/dL High: 160-189 mg/dL Very High: > or = 190 mg/dL Cholesterol.total/Cholest elton in HDL [Mass ratio] 3.5 {ratio} ratio [facility] Comment on above: Female Cholesterol/H DL Ratio: Average risk: 4.4 1/2 average risk: 3.3 2 x average risk: 7.1 Interpretation and review of laboratory results Abnormal [facility] Triglyceride [Mass/Vol] 151 mg/dL High 30 - 150 mg/dL [facility] Comment on above: National Cholesterol Education Program Guidelines: Triglyceride Normal: <150 mg/dL Borderline High: 150-199 mg/dL High: 200-499 mg/dL Very High: greater than or equal to 500 mg/dL No Panel Informationon 04-16 [facility] TSH DL <= 0.005 mIU/L Qnon 0 04-16-2021 Interpretation and review of laboratory results Normal [facility] TSH Qn 1.04 m[IU]/L [facility] Basic Metabolic Panel w/ Ref ray to MGon 03-23-2021 Anion gap [Moles/Vol] 13 mmol/L 9 - 17 mmol/L [facility] Calcium [Mass/Vol] 8.8 mg/dL 8.6 - 10. 4 mg/dL [facility] Chloride [Moles/Vol] 104 mmol/L 98 - 10 7 mmol/L [facility] CO2 [Moles/Vol] 21 mmol/L 20 - 31 mmol/L [facility] Creatinine [Mass/Vol] 0.65 mg/dL 0.50 - 0.90 mg/dL [facility] GFR >60 >60 mL/min [facility] GFR Non- >60 >60 mL/min [facility] GFR/1.73 sq M.predicted MDRD (S/P/Bld) [Vol rate/Area] [facility] Comment on above: Average GFR for 30-3 9 years old: 107 mL/min/1.73sq m Chronic Kidney Disease: <60 mL/min/1.73sq m Kidney failure: <15 mL/min/1.73sq m eGFR calculated using average adult body mass. Additional eGFR calculator available at: http://www.[employer]/multiple_crcl_2012.htm GFR/1.73 sq M.predicted MDRD (S/P/Bld) [Vol rate/Area] NOT REPORTED [facility] Glucose [Mass/Vol] 104 mg/dL High 70 - 99 mg/dL [facility] Interpretation and review of laboratory results Abnormal [facility] Potassium [Moles/Vol] 3.7 mmol/L 3.7 - 5.3 mmol/L [facility] Sodium [Moles/Vol] 138 mmol/L 135 - 144 mmol/L [facility] Urea nitrogen (BldV) [Mass/Vol] 15 mg/dL 6 - 20 mg/dL [facility] Urea nitrogen/Creatinine (Bld) [Mass ratio] 23 High [facility] CBC Auto Differentialon 03-07 Absolute Eos # 0.10 [facility] Absolute Immature Granulocyte NOT REPORTED [facility] Absolute Lymph # 0.60 Low [facility] alth Absolute Swain [facility] Basophils (Bld) [#/Vol] 0.00 10*3/uL [facility] Basophils/100 WBC (Bld) 0 % 0 - 2 % [facility] Differential Type YES [facility] ealt Eosinophils/100 WBC (Bld) 2 % 0 - 5 % [facility] Hematocrit (Bld) [Volume fraction] 34.6 % Low 36 - 46 % [facility] Hemoglobin.gastrointestin al spec 1 Ql (Stl) 11.7 g/dL Low 12.0 - 16.0 g/dL [facility] Immature Granulocytes NOT REPORTED 0 % [facility] Interpretation and review of laboratory results Abnormal [facility] Lymphocytes/100 WBC (Bld) 13 % Low 15 - 40 % [facility] MCH (RBC) [Entitic mass] 26.4 pg 26 - 34 pg [facility] MCHC (RBC) [Mass/Vol] 33.8 g/dL 31 - 3 7 g/dL [facility] MCV (RBC) [Entitic vol] 78.2 fL Low 80 - 100 fL [facility] Monocytes/100 WBC (Bld) 10 % High 4 - 8 % [facility] NRBC Automated NOT REPORTED per 100 WBC [facility] Platelet distribution width (Bld) [Ratio] 14.4 % 12.1 - 15.2 % [facility] Platelet Estimate NOT REPORTED [facility] Platelet mean volume (Bld) [Entitic vol] NOT REPORTED 6.0 - 12.0 fL [facility] Platelets (Bld) [#/Vol] 259 10*3/uL [facility] RBC (Bld) [#/Vol] 4.43 10*6/uL 4.0 - 5.2 m/uL [facility] RBC (Bld) [#/Vol] NOT REPORTED [facility] Segmented neutrophils/100 WBC (Bld) 75 % 47 - 75 % [facility] Segs Absolute 3.60 [facility] h WBC (Bld) [#/Vol] 4.8 10*3/uL [facility] WBC (Bld) [#/Vol] NOT REPORTED [facility] COVID-19, Rapidon 03-23-2021 Interpretation and review of laboratory results Abnormal [facility] SARS-CoV-2 (COVID-19) RNA KALPESH+probe Ql (Unsp spec) Detected Abnormal Not Detected [facility] Comment on above: Rapid NAAT: The specimen is POSITIVE for SARS-Cov-2, the novel coronavirus associated with COVID-19. This test has been authorized by the FDA under an Emergency Use Authorization (EUA) for use by authorized laboratories. The ID NOW COVID-19 assay is designed to detect the virus that causes COVID-19 in patients with signs and symptoms of infection who are suspected of COVID-19. An individual without symptoms of COVID-19 and who is not shedding SARS-CoV-2 virus would expect to have a negative (not detected) result in this assay. Fact sheet for Healthcare Providers: https://www.fda.gov/media/428118/download Fact sheet for Patients: https://www.fda.gov/media/480239/download Methodology: Isothermal Nucleic Acid Amplification Results reported to the appropriate Health Department Specimen Description .NASOPHARYNGEAL SWAB [facility] No Panel Informationon 03-23 Direct Exam Negative [facility] Rapid influenza A/B antigens on 03-23-2021 Special Requests NOT REPORTED [facility] Specimen Description .NASOPHARYNGEAL SWAB [facility] COVID-19, RapidOrdered By: Shayy Springer on 12-27-2020 SARS-CoV-2 (COVID-19) RNA KALPESH+probe Ql (Unsp spec) Not detected Not Detected [facility] Work Phone: Comment on above: Rapid NAAT: The specimen is NEGATIVE for SARS-CoV-2, the novel coronavirus associated with COVID-19. The ID NOW COVID-19 assay is designed to detect the virus that causes COVID-19 in patients with signs and symptoms of infection who are suspected of COVID-19. An individual without symptoms of COVID-19 and who is not shedding SARS-CoV-2 virus would expect to have a negative (not detected) result in this assay. Negative results should be treated as presumptive and, if inconsistent with clinical signs and symptoms or necessary for patient management, should be tested with an alternative molecular assay. Negative results do not preclude SARS-CoV-2 infection and should not be used as the sole basis for patient management decisions. Fact sheet for Healthcare Providers: https://www.fda.gov/media/304578/download Fact sheet for Patients: https://www.fda.gov/media/902782/download Methodology: Isothermal Nucleic Acid Amplification Specimen Description .NASOPHARYNGEAL SWAB [employer] Phone: [employer] Phone: Strep Screen Group A ThroatO rdered By: Wayne Springer on 12-27-2020 S. pyogenes Ag IA Ql (Unsp spec) Rapid Strep A negative. A negative Rapid Group A Strep Screen result does not rule out the possibility of Group A Streptococci in the specimen. A Group A Strep DNA test is available upon request. [employer] Phone: Special Requests NOT REPORTED [employer] Phone: Specimen Description .THROAT [employer] Phone: [employer] Phone: XR SHOULDER RIGHT (MIN 2 VIE WS)Ordered By: Allegra Quinn on 11-20-2020 No acute fracture or traumatic malalignment. [employer] Phone: EXAMINATION: XR SHOULDER RIGHT (MIN 2 VIEWS), , 11/20/2020 9:30 PM EDT INDICATION: Reason for exam:->shoulder pain HISTORY: Ordering Provider Reason for Exam: Technologist Note: Additional: COMPARISON: None. TECHNIQUE: Right shoulder x-ray: 3 view(s). FINDINGS: No acute fracture. Glenohumeral and acromioclavicular joints are anatomically aligned. Joint spaces are preserved. Soft tissues are unremarkable. [employer] Phone: Ward, pn Incoming Radiant Results From [employer] - 11/20/2020 9:55 PM EDT EXAMINATION: XR SHOULDER RIGHT (MIN 2 VIEWS), , 11/20/2020 9:30 PM EDT INDICATION: Reason for exam:->shoulder pain HISTORY: Ordering Provider Reason for Exam: Technologist Note: Additional: COMPARISON: None. TECHNIQUE: Right shoulder x-ray: 3 view(s). FINDINGS: No acute fracture. Glenohumeral and acromioclavicular joints are anatomically aligned. Joint spaces are preserved. Soft tissues are unremarkable. IMPRESSION: No acute fracture or traumatic malalignment. [employer] Work Phone: [employer] Work Phone: COVID-19, MOLECULARon 2020 SARS-CoV-2 (COVID-19) RNA KALPESH+probe Ql (Unsp spec) Not detected Normal Not Detected [facility] Comment on above: Order Comment: : COV ID-19 Lab Test Only (OP in UTM) Result Comment: This test was performed under the FDA's Emergency Use Authorization (EUA). Testing was performed using the Devika SARS-CoV-2 RT-PCR assay on the [employer] Devika 6800 System. This test has not been approved for use in asymptomatic patients and its performance in this patient population has not been evaluated. Negative results do not rule out the presence of SARS-CoV-2/COVID-19. Fact sheets for this EUA can be found at the following links: For Healthcare Providers: https://www.fda.gov/media/883556/download For Patients: https://www.fda.gov/media/186674/download Performed By: #### L [id number] #### [facility] [address] [place] [address] Joe Rider M.D. [id number] HbA1c (Bld) [Mass fraction]O rdered By: Zelda Bautista on 07-09-2020 Interpretation and review of laboratory results Normal [facility] POC Hemoglobin [id number] By : Zelda Bautista on 07-09-2020 HbA1c (Bld) [Mass fraction] 5.2 % 4.0 - 6.0 % [facility] HbA1c (Bld) [Mass fraction]O rdered By: Lelo Gallegos on 06-09-2020 Interpretation and review of laboratory results Normal [facility] POC Hemoglobin [id number] By : Lelo Gallegos on 06-09-2020 HbA1c (Bld) [Mass fraction] 5.6 % 4.0 - 6.0 % [facility] CBC Auto Differentialon 03-08 Basophils (Bld) [#/Vol] 0.00 10*3/uL [place] Basophils/100 WBC (Bld) 0 % 0 - 2 % M [place], [place] Differential Type YES [place] Eosinophils (Bld) [#/Vol] 0.10 10*3/uL [place] Eosinophils/100 WBC (Bld) 1 % 0 - 5 % [place] Erythrocyte distribution width (RBC) [Ratio] 14.2 % 12.1 - 15.2 % [place] Hematocrit (Bld) [Volume fraction] 36.1 % 36 - 46 % [place] Hemoglobin (Bld) [Mass/Vol] 12.5 g/dL 12 - 16 g/dL [place] Interpretation and review of laboratory results Abnormal [place], [place] Lymphocytes (Bld) [#/Vol] 2.00 10*3/uL [place] Lymphocytes/100 WBC (Bld) 14 % Low 15 - 40 % [place] MCH (RBC) [Entitic mass] 30.6 pg 26 - 34 pg [place] MCHC (RBC) [Mass/Vol] 34.5 g/dL 31 - 3 7 g/dL [place] MCV (RBC) [Entitic vol] 88.5 fL 80 - 100 fL [place] Monocytes (Bld) [#/Vol] 0.80 10*3/uL [place] Monocytes/100 WBC (Bld) 6 % 4 - 8 % [place] Platelet mean volume (Bld) [Entitic vol] NOT REPORTED 6 - 12 fL [place] Platelets (Bld) [#/Vol] 300 10*3/uL [place] Platelets (Bld) [#/Vol] NOT REPORTED [place] RBC (Bld) [#/Vol] 4.08 10*6/uL 4 - 5.2 m/uL [place] RBC morphology finding Nom (Bld) NOT REPORTED [place] Segmented neutrophils/100 WBC (Bld) 79 % High 47 - 75 % [place] Segs Absolute 10.70 High [place] WBC (Bld) [#/Vol] 13.6 10*3/uL [place] WBC (Bld) [#/Vol] NOT REPORTED per 100 WBC [place] WBC Morphology NOT REPORTED [place] COVID-19, PCRon 03-26-2020 SARS-CoV-2, Rapid Not Detected Not Detected [place] Comment on above: Rapid NAAT: The specimen is NEGATIVE for SARS-CoV-2, the novel coronavirus associated with COVID-19. The ID NOW COVID-19 assay is designed to detect the virus that causes COVID-19 in patients with signs and symptoms of infection who are suspected of COVID-19. An individual without symptoms of COVID-19 and who is not shedding SARS-CoV-2 virus would expect to have a negative (not detected) result in this assay. Negative results should be treated as presumptive and, if inconsistent with clinical signs and symptoms or necessary for patient management, should be tested with an alternative molecular assay. Negative results do not preclude SARS-CoV-2 infection and should not be used as the sole basis for patient management decisions. Fact sheet for Healthcare Providers: https://www.fda.gov/media/348689/download Fact sheet for Patients: https://www.fda.gov/media/754058/download Methodology: Isothermal Nucleic Acid Amplification Source .THROAT [place] Comprehensive Metabolic Pane l w/ Reflex to MGon 03-26-2020 Albumin [Mass/Vol] 3.3 g/dL Low 3.5 - 5.2 g/dL [place] Albumin/Globulin [Mass ratio] NOT REPORTED [place] ALP [Catalytic activity/Vol] 57 U/L 35 - 104 U/L [place] ALT [Catalytic activity/Vol] U/L Low 5 - 33 U/L [place] Anion gap [Moles/Vol] 11 mmol/L 9 - 17 mmol/L [place] AST [Catalytic activity/Vol] 9 U/L <32 [place] Bilirubin Ql (U) 0.10 mg/dL Low 0.3 - 1.2 mg/dL [place] Bun/Cre Ratio 21 High [place] Calcium [Mass/Vol] 10.2 mg/dL 8.6 - 10. 4 mg/dL [place] Chloride [Moles/Vol] 104 mmol/L 98 - 10 7 mmol/L [place] CO2 [Moles/Vol] 21 mmol/L 20 - 31 mmol/L [place] Creatinine [Mass/Vol] 0.42 mg/dL Low 0.5 - 0.9 mg/dL [place] GFR >60 >60 mL/min [place] GFR Non- >60 >60 mL/min [place] GFR/1.73 sq M predicted among non-blacks MDRD (S/P/Bld) [Vol rate/Area] NOT REPORTED [place] GFR/1.73 sq M predicted among non-blacks MDRD (S/P/Bld) [Vol rate/Area] [place] Comment on above: Average GFR for 30-3 9 years old: 107 mL/min/1.73sq m Chronic Kidney Disease: <60 mL/min/1.73sq m Kidney failure: <15 mL/min/1.73sq m eGFR calculated using average adult body mass. Additional eGFR calculator available at: http://www.[employer].[facility]/multiple_crcl_2011.htm Glucose [Mass/Vol] 100 mg/dL High 70 - 99 mg/dL [place] Interpretation and review of laboratory results Abnormal [place] Potassium [Moles/Vol] 3.8 mmol/L 3.7 - 5.3 mmol/L [place] Protein [Mass/Vol] 6.5 g/dL 6.4 - 8.3 g/dL [place] Sodium [Moles/Vol] 136 mmol/L 135 - 144 mmol/L [place] Urea nitrogen [Mass/Vol] 9 mg/dL 6 - 20 mg/dL [place] Otheron 03-26-2020 SARS-CoV-2 [place] Immature granulocytes (Bld) [#/Vol] NOT REPORTED [place] Urinalysis, reflex to micros copicon 03-26-2020 Bilirubin Urine Negative NEGATIVE [facility] [place] Color, UA YELLOW YELLOW [place] Glucose, Ur Negative NEGATIVE [place] Ketones Ql (U) Negative NEGATIVE [place] Leukocyte esterase Test strip Ql (U) Negative NEGATIVE [place] Nitrite, Urine Negative NEGATIVE [place] pH, UA 7.0 [place] Protein (U) [Mass/Vol] Negative NEGATIVE [place] Specific [place], UA 1.010 [place], [place] Turbidity UA CLEAR CLEAR [place] Urinalysis Comments [place] Urine Hgb Negative NEGATIVE [place] Urobilinogen, Urine Normal Normal [place] Wet Prep, Genitalon 11-20-19 Direct Exam MODERATE EPITHELIAL CELLS Abnormal [place] Direct Exam FEW TRICHOMONAS SEEN Abnormal [place] Direct Exam MODERATE BACTERIA Abnormal [place] Direct Exam Few epithelials coated with bacteria resembling clue cells. Abnormal [place] Direct Exam NO FUNGAL ELEMENTS SEEN [place] Interpretation and review of laboratory results Abnormal [place] Special Requests NOT REPORTED [place] Specimen Description .VAGINAL SPECIMEN [place] WBC (Bld) [#/Vol] FEW WBC SEEN Abnormal [place] Basic Metabolic Panelon 06-05 Anion gap [Moles/Vol] 15 mmol/L 10 - 2 0 mmol/L [facility] Calcium [Mass/Vol] 8.6 mg/dL 8.4 - 10. 2 mg/dL [facility] Chloride [Moles/Vol] 102 mmol/L 98 - 10 8 mmol/L [facility] Creatinine [Mass/Vol] 0.36 mg/dL Low 0.40 - 1.10 [facility] GFR/1.73 sq M predicted among non-blacks MDRD (S/P/Bld) [Vol rate/Area] The eGFR should be used for monitoring renal function only and not for medication dosing. [facility] GFR/1.73 sq M.predicted CKD-EPI (S/P/Bld) [Vol rate/Area] 146 >=60 mL/min/1.73 m2 [facility] Glucose [Mass/Vol] 102 mg/dL High 65 - 99 mg/dL [facility] HCO3 [Moles/Vol] 25 mmol/L 21 - 32 mmol/L [facility] Interpretation and review of laboratory results Abnormal [facility] Potassium [Moles/Vol] 4.1 mmol/L 3.5 - 5.1 mmol/L [facility] Sodium [Moles/Vol] 138 mmol/L 135 - 145 mmol/L [facility] Urea nitrogen [Mass/Vol] 5 mg/dL Low 8 - 25 mg/dL [facility] Urea nitrogen/Creatinine [Mass ratio] 13.9 mg/mg [facility] Hepatic Function Panelon Albumin [Mass/Vol] 3.3 g/dL 3.2 - 5.2 g/dL [facility] ALP [Catalytic activity/Vol] 253 U/L High 40 - 140 U/L [facility] ALT [Catalytic activity/Vol] 686 U/L High 0 - 40 U/L [facility] AST [Catalytic activity/Vol] 349 U/L High 0 - 45 U/L [facility] Bilirubin [Mass/Vol] 6.0 mg/dL High 0 - 1.3 mg/dL [facility] Bilirubin.conjugated [Mass/Vol] 5.1 mg/dL High 0 - 0.4 mg/dL [facility] Interpretation and review of laboratory results Abnormal [facility] Protein [Mass/Vol] 6.8 g/dL 6 - 8 g/dL [facility] alth Bilirubin, Directon 06-16-19 20 Bilirubin.conjugated [Mass/Vol] 5.4 mg/dL High 0 - 0.4 mg/dL [facility] Interpretation and review of laboratory results Abnormal [facility] CBCon 06-16-2019 Erythrocyte distribution width (RBC) [Entitic vol] 15.1 % High 11.6 - 14.8 % [facility] Hematocrit (Bld) [Volume fraction] 38.5 % 36 - 46 % [facility] Hemoglobin (Bld) [Mass/Vol] 12.9 g/dL 12 - 16 g/dL [facility] Interpretation and review of laboratory results Abnormal [facility] MCH (RBC) [Entitic mass] 29.1 pg 26 - 34 pg [facility] MCHC (RBC) [Mass/Vol] 33.5 g/dL 31 - 3 7 g/dL [facility] MCV (RBC) [Entitic vol] 86.9 fL 80 - 100 fL [facility] Nucleated RBC (Bld) [#/Vol] 0.00 10*3/uL [facility] Nucleated RBC/100 WBC (Bld) [Ratio] 0.0 % [facility] Platelet mean volume (Bld) [Entitic vol] 11.3 fL 9 - 15.5 fL [facility] Platelets (Bld) [#/Vol] 185 10*3/uL [facility] RBC (Bld) [#/Vol] 4.43 10*6/uL [facility] WBC (Bld) [#/Vol] 6.48 10*3/uL [facility] Comprehensive Metabolic Pane cayden 06-16-2019 Albumin [Mass/Vol] 3.3 g/dL 3.2 - 5.2 g/dL [facility] ALP [Catalytic activity/Vol] 217 U/L High 40 - 140 U/L [facility] ALT [Catalytic activity/Vol] 825 U/L High 0 - 40 U/L [facility] Anion gap [Moles/Vol] 14 mmol/L 10 - 2 0 mmol/L [facility] AST [Catalytic activity/Vol] 544 U/L High 0 - 45 U/L [facility] Bilirubin [Mass/Vol] 5.9 mg/dL High 0 - 1.3 mg/dL [facility] Calcium [Mass/Vol] 8.4 mg/dL 8.4 - 10. 2 mg/dL [facility] Chloride [Moles/Vol] 103 mmol/L 98 - 10 8 mmol/L [facility] Creatinine [Mass/Vol] 0.32 mg/dL Low 0.40 - 1.10 [facility] GFR/1.73 sq M predicted among non-blacks MDRD (S/P/Bld) [Vol rate/Area] The eGFR should be used for monitoring renal function only and not for medication dosing. [facility] GFR/1.73 sq M.predicted CKD-EPI (S/P/Bld) [Vol rate/Area] 152 >=60 mL/min/1.73 m2 [facility] Glucose [Mass/Vol] 92 mg/dL 65 - 99 mg/dL [facility] HCO3 [Moles/Vol] 26 mmol/L 21 - 32 mmol/L [facility] Interpretation and review of laboratory results Abnormal [facility] Potassium [Moles/Vol] 4.3 mmol/L 3.5 - 5.1 mmol/L [facility] Protein [Mass/Vol] 6.2 g/dL 6 - 8 g/dL [facility] alth Sodium [Moles/Vol] 139 mmol/L 135 - 145 mmol/L [facility] Urea nitrogen [Mass/Vol] 4 mg/dL Low 8 - 25 mg/dL [facility] Urea nitrogen/Creatinine [Mass ratio] 12.5 mg/mg [facility] Bilirubin, Directon 06-15-19 20 Bilirubin.conjugated [Mass/Vol] 4.7 mg/dL High 0 - 0.4 mg/dL [facility] Interpretation and review of laboratory results Abnormal [facility] CBCon 06-15-2019 Erythrocyte distribution width (RBC) [Entitic vol] 14.8 % 11.6 - 14.8 % [facility] Hematocrit (Bld) [Volume fraction] 38.5 % 36 - 46 % [facility] Hemoglobin (Bld) [Mass/Vol] 12.6 g/dL 12 - 16 g/dL [facility] MCH (RBC) [Entitic mass] 29.0 pg 26 - 34 pg [facility] MCHC (RBC) [Mass/Vol] 32.7 g/dL 31 - 3 7 g/dL [facility] MCV (RBC) [Entitic vol] 88.5 fL 80 - 100 fL [facility] Nucleated RBC (Bld) [#/Vol] 0.00 10*3/uL [facility] Nucleated RBC/100 WBC (Bld) [Ratio] 0.0 % [facility] Platelet mean volume (Bld) [Entitic vol] 11.0 fL 9 - 15.5 fL [facility] Platelets (Bld) [#/Vol] 155 10*3/uL [facility] RBC (Bld) [#/Vol] 4.35 10*6/uL [facility] WBC (Bld) [#/Vol] 5.74 10*3/uL [facility] Comprehensive Metabolic Pane cayden 06-15-2019 Albumin [Mass/Vol] 3.2 g/dL 3.2 - 5.2 g/dL [facility] ALP [Catalytic activity/Vol] 193 U/L High 40 - 140 U/L [facility] ALT [Catalytic activity/Vol] 888 U/L High 0 - 40 U/L [facility] Anion gap [Moles/Vol] 15 mmol/L 10 - 2 0 mmol/L [facility] AST [Catalytic activity/Vol] 667 U/L High 0 - 45 U/L [facility] Bilirubin [Mass/Vol] 5.2 mg/dL High 0 - 1.3 mg/dL [facility] Calcium [Mass/Vol] 8.2 mg/dL Low 8.4 - 10. 2 mg/dL [facility] Chloride [Moles/Vol] 103 mmol/L 98 - 10 8 mmol/L [facility] Creatinine [Mass/Vol] 0.36 mg/dL Low 0.40 - 1.10 [facility] GFR/1.73 sq M predicted among non-blacks MDRD (S/P/Bld) [Vol rate/Area] The eGFR should be used for monitoring renal function only and not for medication dosing. [facility] GFR/1.73 sq M.predicted CKD-EPI (S/P/Bld) [Vol rate/Area] 146 >=60 mL/min/1.73 m2 [facility] Glucose [Mass/Vol] 122 mg/dL High 65 - 99 mg/dL [facility] HCO3 [Moles/Vol] 22 mmol/L 21 - 32 mmol/L [facility] Interpretation and review of laboratory results Abnormal [facility] Potassium [Moles/Vol] 3.8 mmol/L 3.5 - 5.1 mmol/L [facility] Protein [Mass/Vol] 5.8 g/dL Low 6 - 8 g/dL [facility] alth Sodium [Moles/Vol] 136 mmol/L 135 - 145 mmol/L [facility] Urea nitrogen [Mass/Vol] 5 mg/dL Low 8 - 25 mg/dL [facility] Urea nitrogen/Creatinine [Mass ratio] 13.9 mg/mg [facility] [place] HEPATOBILIARY WO EJECTION FRACTIONon 06-15-2019 EXAMINATION: RADIONUCLIDE HEPATOBILIARY SCAN COMPARISON: MRI dated 06/14/2019 HISTORY: ORDERING SYSTEM PROVIDED HISTORY: r/o acalculous chlolecystitis, thickened edematous gallbladder wall seen on CT and MRI. TECHNOLOGIST PROVIDED HISTORY: Illness/Other Reason for exam: r/o acalculous chlolecystitis Encounter Type: Unknown Additional signs and symptoms: r/o acalculous chlolecystitis ORDERING SYSTEM PROVIDED DIAGNOSIS CODES: R94.5 Elevated LFTs O99.320 IVDA (intravenous drug abuse) complicating (HCC) F19.10 IVDA (intravenous drug abuse) complicating (HCC) TECHNIQUE: TRACER DOSE: TECHNETIUM TC-99M MEBROFENIN, DIAG, STUDY , UP TO 15 MILLICURIES - 4.98 millicurie, FINDINGS: There is a normal homogeneous distribution of radiotracer throughout the hepatic parenchyma. The gallbladder, biliary tree, and small bowel are not visualized. [facility] Opacified liver with no visualization of the gallbladder, biliary tree, or small bowel. Although this appearance could theoretically raise concern for obstruction of the common bile duct, there is no evidence for this on the recent MRI. The findings are therefore most likely due to diffuse hepatocellular dysfunction. In this setting, no accurate statement can be made regarding the presence or absence of cholecystitis. [employer] Workstation ID: [id number] [facility] Interface, Rad In [employer] - 06/15/2019 3:10 PM EDT EXAMINATION: RADIONUCLIDE HEPATOBILIARY SCAN COMPARISON: MRI dated 06/14/2019 HISTORY: ORDERING SYSTEM PROVIDED HISTORY: r/o acalculous chlolecystitis, thickened edematous gallbladder wall seen on CT and MRI. TECHNOLOGIST PROVIDED HISTORY: Illness/Other Reason for exam: r/o acalculous chlolecystitis Encounter Type: Unknown Additional signs and symptoms: r/o acalculous chlolecystitis ORDERING SYSTEM PROVIDED DIAGNOSIS CODES: R94.5 Elevated LFTs O99.320 IVDA (intravenous drug abuse) complicating (HCC) F19.10 IVDA (intravenous drug abuse) complicating (HCC) TECHNIQUE: TRACER DOSE: TECHNETIUM TC-99M MEBROFENIN, DIAG, STUDY , UP TO 15 MILLICURIES - 4.98 millicurie, FINDINGS: There is a normal homogeneous distribution of radiotracer throughout the hepatic parenchyma. The gallbladder, biliary tree, and small bowel are not visualized. IMPRESSION: Opacified liver with no visualization of the gallbladder, biliary tree, or small bowel. Although this appearance could theoretically raise concern for obstruction of the common bile duct, there is no evidence for this on the recent MRI. The findings are therefore most likely due to diffuse hepatocellular dysfunction. In this setting, no accurate statement can be made regarding the presence or absence of cholecystitis. [employer] Workstation ID: [id number] [facility] APTTon 06-14-2019 aPTT Coag (Bld) [Time] 31.1 s [facility] [place], [place] Comment on above: PTT Therapeutic Range: 61.7-88.4 Therapeutic range corresponds to plasma heparin levels of 0.3-0.7 U/mL. Acetaminophen Levelon 2019 Acetaminophen [Mass/Vol] 9.1 [facility] Interpretation and review of laboratory results Normal [facility] Bilirubin, Directon 06-14-19 20 Bilirubin.conjugated [Mass/Vol] 4.3 mg/dL High 0 - 0.4 mg/dL [facility] Interpretation and review of laboratory results Abnormal [facility] CBC WITH AUTO DIFFERENTIALon 06-14-2019 Erythrocyte distribution width (RBC) [Entitic vol] 14.5 % 11.6 - 14.8 % [facility] Hematocrit (Bld) [Volume fraction] 34.6 % Low 36 - 46 % [facility] Hemoglobin (Bld) [Mass/Vol] 11.6 g/dL Low 12 - 16 g/dL [facility] Interpretation and review of laboratory results Abnormal [facility] MCH (RBC) [Entitic mass] 29.7 pg 26 - 34 pg [facility] MCHC (RBC) [Mass/Vol] 33.5 g/dL 31 - 3 7 g/dL [facility] MCV (RBC) [Entitic vol] 88.5 fL 80 - 100 fL [facility] Nucleated RBC (Bld) [#/Vol] 0.00 10*3/uL [facility] Nucleated RBC/100 WBC (Bld) [Ratio] 0.0 % [facility] Platelet mean volume (Bld) [Entitic vol] 10.8 fL 9 - 15.5 fL [facility] Platelets (Bld) [#/Vol] 172 10*3/uL [facility] RBC (Bld) [#/Vol] 3.91 10*6/uL Low [facility] WBC (Bld) [#/Vol] 7.28 10*3/uL [facility] ealth CT ABDOMEN PELVIS W IV CONTR AST Additional Contrast? Noneon 06-14-2019 Ward, Mhpn Incoming Radiant Results From [employer] - 06/14/2019 12:27 AM EDT EXAMINATION: CT ABDOMEN PELVIS W IV CONTRAST HISTORY: Reason for exam:->epigastric pain COMPARISON: None. TECHNIQUE: CT examination of the abdomen and pelvis following the administration of 75 mL of Isovue-370 intravenous contrast. Coronal and sagittal reformations were performed. Dose reduction techniques were achieved by using automated exposure control and/or adjustment of mA and/or kV according to patient size and/or use of iterative reconstruction technique. FINDINGS: Moderate gallbladder wall thickening with pericholecystic fluid and periportal edema. Gallbladder wall may be thickened. No stones noted in the gallbladder or common bile duct. Pancreas, spleen, and adrenal glands are without acute finding. Kidneys are normal in size and appearance without obstruction or visualized stone. Normal caliber of the ureters down to the bladder. The bladder is within normal limits. There is no free intraperitoneal air or fluid. There is no bowel wall thickening, obstruction, or inflammatory changes in the abdomen. The appendix is normal. There is no appendicolith. No concerning lymphadenopathy. The aorta is normal in caliber throughout, with no evidence of aneurysm or dissection. The skeletal structures demonstrate no acute or concerning abnormality. IMPRESSION: Pericholecystic fluid versus gallbladder wall thickening and additional periportal edema. There are no visualized stones in the gallbladder gallbladder and/or hepatic pathology are suspected. Correlate with liver function panel and consider ultrasound imaging. [place] Pericholecystic fluid versus gallbladder wall thickening and additional periportal edema. There are no visualized stones in the gallbladder gallbladder and/or hepatic pathology are suspected. Correlate with liver function panel and consider ultrasound imaging. [place] EXAMINATION: CT ABDOMEN PELVIS W IV CONTRAST HISTORY: Reason for exam:->epigastric pain COMPARISON: None. TECHNIQUE: CT examination of the abdomen and pelvis following the administration of 75 mL of Isovue-370 intravenous contrast. Coronal and sagittal reformations were performed. Dose reduction techniques were achieved by using automated exposure control and/or adjustment of mA and/or kV according to patient size and/or use of iterative reconstruction technique. FINDINGS: Moderate gallbladder wall thickening with pericholecystic fluid and periportal edema. Gallbladder wall may be thickened. No stones noted in the gallbladder or common bile duct. Pancreas, spleen, and adrenal glands are without acute finding. Kidneys are normal in size and appearance without obstruction or visualized stone. Normal caliber of the ureters down to the bladder. The bladder is within normal limits. There is no free intraperitoneal air or fluid. There is no bowel wall thickening, obstruction, or inflammatory changes in the abdomen. The appendix is normal. There is no appendicolith. No concerning lymphadenopathy. The aorta is normal in caliber throughout, with no evidence of aneurysm or dissection. The skeletal structures demonstrate no acute or concerning abnormality. [facility]- [place], [place] CT COMPARISON IMPORTon 06-13 This order has been auto-finalized and does not contain a result. [facility] Comprehensive Metabolic Pane cayden 06-14-2019 Albumin [Mass/Vol] 3.0 g/dL Low 3.2 - 5.2 g/dL [facility] ALP [Catalytic activity/Vol] 183 U/L High 40 - 140 U/L [facility] ALT [Catalytic activity/Vol] 808 U/L High 0 - 40 U/L [facility] Anion gap [Moles/Vol] 16 mmol/L 10 - 2 0 mmol/L [facility] AST [Catalytic activity/Vol] 592 U/L High 0 - 45 U/L [facility] Bilirubin [Mass/Vol] 4.9 mg/dL High 0 - 1.3 mg/dL [facility] Calcium [Mass/Vol] 8.4 mg/dL 8.4 - 10. 2 mg/dL [facility] Chloride [Moles/Vol] 104 mmol/L 98 - 10 8 mmol/L [facility] Creatinine [Mass/Vol] 0.43 mg/dL 0.40 - 1.10 [facility] GFR/1.73 sq M predicted among non-blacks MDRD (S/P/Bld) [Vol rate/Area] The eGFR should be used for monitoring renal function only and not for medication dosing. [facility] GFR/1.73 sq M.predicted CKD-EPI (S/P/Bld) [Vol rate/Area] 138 >=60 mL/min/1.73 m2 [facility] Glucose [Mass/Vol] 79 mg/dL 65 - 99 mg/dL [facility] HCO3 [Moles/Vol] 21 mmol/L 21 - 32 mmol/L [facility] Interpretation and review of laboratory results Abnormal [facility] Potassium [Moles/Vol] 3.8 mmol/L 3.5 - 5.1 mmol/L [facility] Protein [Mass/Vol] 5.7 g/dL Low 6 - 8 g/dL [facility] alth Sodium [Moles/Vol] 137 mmol/L 135 - 145 mmol/L [facility] Urea nitrogen [Mass/Vol] 9 mg/dL 8 - 25 mg/dL [facility] Urea nitrogen/Creatinine [Mass ratio] 20.9 mg/mg High [facility] DRUGS OF ABUSE SCREEN, URINE on 06-14-2019 Amphetamines Ql (U) None Detected None Detected [facility] Comment on above: Urine Amphetamine Cu toff: < 1000 ng/mL = None Detected Barbiturates Screen Ql (U) None Detected None Detected [facility] Comment on above: Urine Barbiturates C utoff: < 200 ng/mL = None Detected Benzodiazepines Ql (U) None Detected None Detected [facility] Comment on above: Urine Benzodiazepine Cutoff: < 300 ng/mL = None Detected Cannabinoids Screen Ql (U) None Detected None Detected [facility] Comment on above: Urine Cannabinoids C utoff: < 50 ng/mL = None Detected Cocaine Ql (U) Positive Abnormal None Detected [facility] Comment on above: Urine Cocaine Cutoff : < 300 ng/mL = None Detected Interpretation and review of laboratory results Abnormal [facility] Methadone Screen Ql (U) None Detected Non e Detected [facility] Comment on above: Urine Methadone Cuto ff: < 300 ng/mL = None Detected Opiates Screen Ql (U) None Detected None Detected [facility] Comment on above: Urine Opiates Cutoff : < 300 ng/mL = None Detected Oxycodone Ql (U) None Detected None Detected [facility] Comment on above: Urine Oxycodone Cuto ff: < 100 ng/mL = None Detected Screen results should be used for treatment purposes only. Specimen will be kept for 2 weeks, if the sample is adequate. Confirmation testing can be initiated by calling the lab within 2 weeks. [facility] HEPATITIS PANEL, ACUTEon HAV IgM Ql (S) Negative Negative [facility] HBV core IgM Ql (S) Negative Negative [facility] HBV surface Ag Ql (S) Negative Negative [facility] HCV Ab Ql (S) Positive Abnormal Negative [facility] Comment on above: A positive antibody test requires additional follow-up testing, Hepatitis C Virus Quantitation, to determine if a person is currently infected with Hepatitis C. Interpretation and review of laboratory results Abnormal [facility] Test performed using [employer] DEVIKA immunoassay system [facility] Lactic Acid, Plasmaon 2019 Interpretation and review of laboratory results Normal [facility] Lactate [Moles/Vol] 0.8 mmol/L 0.6 - 2 mmol/L [facility] MORPHOLOGYon 06-14-2019 Platelets LM Ql (Bld) Normal Normal [facility]al RBC morphology finding Nom (Bld) Normal [facility] MRCPon 06-14-2019 EXAMINATION: MRCP 03/15/2024 HISTORY: ORDERING SYSTEM PROVIDED HISTORY: transaminitis r/o biliary pathology, TECHNOLOGIST PROVIDED HISTORY: Illness/Other Reason for exam: transaminitis r/o biliary pathology, patient states pain x 1 week Encounter Type: Initial Additional signs and symptoms: n/a ORDERING SYSTEM PROVIDED DIAGNOSIS CODES: R94.5 Elevated LFTs O99.320 IVDA (intravenous drug abuse) complicating (HCC) F19.10 IVDA (intravenous drug abuse) complicating (HCC) COMPARISON: Outside CT of the abdomen and pelvis with contrast 06/13/2019. TECHNIQUE: Coronal, coronal oblique and axial thin and thick section T2-weighted images were obtained with without fat saturation. Axial T1-weighted images were obtained in- and [id number]. Axial diffusion-weighted imaging was also performed. FINDINGS: The liver overall appears enlarged with the right hepatic lobe measuring 22.6 cm [id number] r. The spleen measures 14.6 cm [id number] r and is also mildly enlarged. There is circumferential high T2 thickening of the gallbladder wall noted diffusely. On coronal imaging a component of the wall medially has thickness of 12 mm. There are no stones identified within the lumen. Background diffuse periportal edema is noted. Trace volume of perihepatic and perisplenic ascites identified as well. The pancreas, adrenal glands and kidneys appear otherwise unremarkable. Heart size is normal. Lung bases are grossly clear. Aorta demonstrates normal caliber. There is no obvious pleural effusion. Negative for intrahepatic or extrahepatic biliary ductal dilatation. Common bile duct at the level of the pancreatic head for example has a diameter of 3 mm. Common hepatic duct has a diameter of 3 mm. Pancreatic duct demonstrates normal caliber. Negative for pancreatic mass. Pericholecystic edematous changes are present. This extends medially near the duodenal C looped and noted near the pancreatic neck and head. There is mild infiltration of the fat about the right epicardial fat pad. There is also involvement of the fat about the right adrenal superior to the right kidney. Bowel pattern is nonobstructive. [facility] 1. Re-demonstration of diffuse periportal edema as well as significant circumferential gallbladder wall edema similar to that seen on prior CT study. 2. Mild hepatosplenomegaly. 3. No obvious gallstones. Negative for biliary or pancreatic ductal dilatation. Negative for choledocholithiasis . 4. Trace volume of abdominal ascites. [employer] Work[employer] ID: [id number] [facility] Interface, Rad In Asif Parhamq - 06/14/2019 4:45 PM EDT EXAMINATION: MR MRCP 03/15/2024 HISTORY: ORDERING SYSTEM PROVIDED HISTORY: transaminitis r/o biliary pathology, TECHNOLOGIST PROVIDED HISTORY: Illness/Other Reason for exam: transaminitis r/o biliary pathology, patient states pain x 1 week Encounter Type: Initial Additional signs and symptoms: n/a ORDERING SYSTEM PROVIDED DIAGNOSIS CODES: R94.5 Elevated LFTs O99.320 IVDA (intravenous drug abuse) complicating (HCC) F19.10 IVDA (intravenous drug abuse) complicating (HCC) COMPARISON: Outside CT of the abdomen and pelvis with contrast 06/13/2019. TECHNIQUE: Coronal, coronal oblique and axial thin and thick section T2-weighted images were obtained with without fat saturation. Axial T1-weighted images were obtained in- and [id number]. Axial diffusion-weighted imaging was also performed. FINDINGS: The liver overall appears enlarged with the right hepatic lobe measuring 22.6 cm [id number]-[id number] r. The spleen measures 14.6 cm tneaeets-bc-cmrlrng r and is also mildly enlarged. There is circumferential high T2 thickening of the gallbladder wall noted diffusely. On coronal imaging a component of the wall medially has thickness of 12 mm. There are no stones identified within the lumen. Background diffuse periportal edema is noted. Trace volume of perihepatic and perisplenic ascites identified as well. The pancreas, adrenal glands and kidneys appear otherwise unremarkable. Heart size is normal. Lung bases are grossly clear. Aorta demonstrates normal caliber. There is no obvious pleural effusion. Negative for intrahepatic or extrahepatic biliary ductal dilatation. Common bile duct at the level of the pancreatic head for example has a diameter of 3 mm. Common hepatic duct has a diameter of 3 mm. Pancreatic duct demonstrates normal caliber. Negative for pancreatic mass. Pericholecystic edematous changes are present. This extends medially near the duodenal C looped and noted near the pancreatic neck and head. There is mild infiltration of the fat about the right epicardial fat pad. There is also involvement of the fat about the right adrenal superior to the right kidney. Bowel pattern is nonobstructive. IMPRESSION: 1. Re-demonstration of diffuse periportal edema as well as significant circumferential gallbladder wall edema similar to that seen on prior CT study. 2. Mild hepatosplenomegaly. 3. No obvious gallstones. Negative for biliary or pancreatic ductal dilatation. Negative for choledocholithiasis . 4. Trace volume of abdominal ascites. [employer] Workstation ID: [id number] [facility] Manual Differentialon 2019 Basophils (Bld) [#/Vol] 0.00 10*3/uL [facility] Basophils/100 WBC (Bld) 0.0 % [facility] Eosinophils (Bld) [#/Vol] 0.00 10*3/uL [facility] Eosinophils/100 WBC (Bld) 0.0 % [facility] Lymphocytes (Bld) [#/Vol] 3.28 10*3/uL [facility] Lymphocytes/100 WBC (Bld) 37.0 % [facility] Monocytes (Bld) [#/Vol] 0.44 10*3/uL [facility] Monocytes/100 WBC (Bld) 6.0 % [facility] Neutrophils (Bld) [#/Vol] 3.57 10*3/uL [facility] Neutrophils/100 WBC (Bld) 49.0 % [facility] Variant lymphocytes/100 WBC (Bld) 8.0 % [facility] PT/INRon 06-14-2019 INR Coag (PPP) [Relative time] 1.3 {INR} [facility] Interpretation and review of laboratory results Abnormal [facility] PT Coag (PPP) [Time] 15.5 s [facility] During the induction phase of oral anticoagulation, the INR may not reflect the anticoagulation status of the patient. Therapeutic ranges for INR's are: Most clinical situations: INR 2.0-3.0 Mechanical Prosthetic Valve: INR 2.5-3.5 Critical: INR >5.0 [facility] Protime-INRon 06-14-2019 INR Coag (PPP) [Relative time] 1.2 {INR} [place] Comment on above: * THERAPY INDICATIONS * REFERENCE RANGES Pts not on anti-coagulants 1.0 - 1.5 INR Low risk pts on anti-coagulants 2.0 - 3.0 INR High risk pts on anti-coagulants 2.5 - 3.5 INR Prevention of atrial thrombo-embolism 3.0 - 4.5 INR Interpretation and review of laboratory results Abnormal [place] PT Coag (PPP) [Time] 11.7 s [facility], [place] Salicylate Levelon 0 Interpretation and review of laboratory results Abnormal [facility] Salicylates [Mass/Vol] mg/dL Low 10 - 20 mg/dL [facility] URINALYSISon 06-14-2019 Bacteria Auto Ql (U) Rare Abnormal None Se en /hpf [facility] Bilirubin Ql (U) Positive Abnormal Negative [facility] th Comment on above: False positive urine bilirubins can occur in the setting of a large amount of hemoglobin and secondary to medications including anti-inflammatory agents, rifampin, and pyridium. Clarity Refractometry automated (U) Clear Clear [facility] Color (U) Erica Abnormal Colorless, Yellow [facility] Epithelial cells.squamous Auto (Urine sed) [#/Area] 4 [facility] alth Glucose Auto test strip (U) [Mass/Vol] Negative Negative mg/dL [facility] Hemoglobin Auto test strip Ql (U) Negative Negative [facility] Interpretation and review of laboratory results Abnormal [facility] Ketones (U) [Mass/Vol] >=80 Abnormal Negat krystal mg/dL [facility] Leukocyte esterase Auto test strip Ql (U) Negative Negative [facility] Mucus Auto (Urine sed) [#/Area] Rare None Seen, Rare /lpf [facility] Nitrite Auto test strip Ql (U) Negative Negative [facility] pH (U) 6.0 [pH] [facility] Protein (U) [Mass/Vol] 30 Abnormal Negat krystal mg/dL [facility] Comment on above: False positive resul ts may occur in urines with large amounts of hemoglobin, pH greater than 8.0, contrast medium, or disinfectants including ammonium compounds. RBC Auto (Urine sed) [#/Area] 2 [facility] Specific gravity (U) [Rel density] 1.028 High [facility] Urobilinogen (U) [Mass/Vol] >=4.0 Abnormal <2.0 mg/dL [facility] WBC Auto (Urine sed) [#/Area] 2 [facility] Microscopic examination is performed on all urinalysis samples and only positive findings are reported. The test for blood on the chemical analytic portion of urinalysis may also be positive due to hemoglobinuria and myoglobinuria and if red blood cells are present they are quantified by microscopic examination. [facility] US ABDOMEN LIMITED STUDYon 0 06-14-2019 Interface, Rad In [employer] Speech[employer] - 06/14/2019 9:43 AM EDT EXAMINATION: US ABDOMEN LIMITED STUDY HISTORY: RUQ abd pain COMPARISON: CT abdomen and pelvis 06/13/2019. FINDINGS: Ultrasound performed of the right upper quadrant. Pancreas is normal in appearance. There is a peripancreatic lymph node measuring 1.5 x 0.6 x 1.3 cm. The liver echotexture is normal. Echogenic lesion in the left lobe of the liver measures 0.9 x 1.3 x 0.9 cm, likely represents a hemangioma. This is difficult to definitively identify on the recent CT scan. The gallbladder is contracted. Edematous gallbladder wall thickening is present measuring up to 1.5 cm in thickness. No stones are seen within the gallbladder. The common duct is normal measuring 6 mm. Patient reports a positive sonographic Short's sign. Right renal echotexture is within normal limits right kidney measures 10.7 cm in length. No hydronephrosis. IMPRESSION: 1. Contracted gallbladder limits evaluation. No cholelithiasis identified. Nonspecific edematous gallbladder wall thickening and reported positive sonographic Short's sign, cannot exclude acalculus cholecystitis. No biliary ductal dilatation. 2. 1.3 cm echogenic lesion left lobe of the liver likely small hemangioma. Workstation ID: [id number] [facility] EXAMINATION: US ABDOMEN LIMITED STUDY HISTORY: RUQ abd pain COMPARISON: CT abdomen and pelvis 06/13/2019. FINDINGS: Ultrasound performed of the right upper quadrant. Pancreas is normal in appearance. There is a peripancreatic lymph node measuring 1.5 x 0.6 x 1.3 cm. The liver echotexture is normal. Echogenic lesion in the left lobe of the liver measures 0.9 x 1.3 x 0.9 cm, likely represents a hemangioma. This is difficult to definitively identify on the recent CT scan. The gallbladder is contracted. Edematous gallbladder wall thickening is present measuring up to 1.5 cm in thickness. No stones are seen within the gallbladder. The common duct is normal measuring 6 mm. Patient reports a positive sonographic Short's sign. Right renal echotexture is within normal limits right kidney measures 10.7 cm in length. No hydronephrosis. [facility] 1. Contracted gallbladder limits evaluation. No cholelithiasis identified. Nonspecific edematous gallbladder wall thickening and reported positive sonographic Short's sign, cannot exclude acalculus cholecystitis. No biliary ductal dilatation. 2. 1.3 cm echogenic lesion left lobe of the liver likely small hemangioma. Workstation ID: [id number] [facility] Amylaseon 06-13-2019 Amylase [Catalytic activity/Vol] 22 U/L Low 28 - 100 U/L [place] CBC Auto Differentialon Basophils (Bld) [#/Vol] 0.00 10*3/uL [place] Basophils/100 WBC (Bld) 1 % 0 - 2 % [place] Differential Type YES [place] Eosinophils (Bld) [#/Vol] 0.00 10*3/uL [place] Eosinophils/100 WBC (Bld) 0 % 0 - 5 % [place] Erythrocyte distribution width (RBC) [Ratio] 14.9 % 12.1 - 15.2 % [place] Hematocrit (Bld) [Volume fraction] 43.3 % 36 - 46 % [place] Hemoglobin (Bld) [Mass/Vol] 14.3 g/dL 12 - 16 g/dL [place] Lymphocytes (Bld) [#/Vol] 2.50 10*3/uL [place] Lymphocytes/100 WBC (Bld) 30 % 15 - 40 % [place] MCH (RBC) [Entitic mass] 28.8 pg 26 - 34 pg [place] MCHC (RBC) [Mass/Vol] 33.1 g/dL 31 - 3 7 g/dL [place] MCV (RBC) [Entitic vol] 87.2 fL 80 - 100 fL [place] Monocytes (Bld) [#/Vol] 0.70 10*3/uL [place] Monocytes/100 WBC (Bld) 8 % 4 - 8 % [place] Platelet mean volume (Bld) [Entitic vol] NOT REPORTED 6 - 12 fL [place] Platelets (Bld) [#/Vol] 203 10*3/uL [place] Platelets (Bld) [#/Vol] NOT REPORTED [place] RBC (Bld) [#/Vol] 4.97 10*6/uL 4 - 5.2 m/uL [place] RBC morphology finding Nom (Bld) NOT REPORTED [place] Segmented neutrophils/100 WBC (Bld) 61 % 47 - 75 % [place] Segs Absolute 5.20 [place] WBC (Bld) [#/Vol] 8.4 10*3/uL [place] WBC (Bld) [#/Vol] NOT REPORTED per 100 WBC [place] WBC Morphology NOT REPORTED [place] Comprehensive Metabolic Pane l w/ Reflex to MGon 06-13-2019 Albumin [Mass/Vol] 4.1 g/dL 3.5 - 5.2 g/dL [place] Albumin/Globulin [Mass ratio] NOT REPORTED [place] ALP [Catalytic activity/Vol] 255 U/L High 35 - 104 U/L [place] ALT [Catalytic activity/Vol] 1116 U/L High 5 - 33 U/L [place] Anion gap [Moles/Vol] 17 mmol/L 9 - 17 mmol/L [place] AST [Catalytic activity/Vol] 665 U/L High <32 [place] Bilirubin Ql (U) 6.52 mg/dL High 0.3 - 1.2 mg/dL [place] Bun/Cre Ratio 17 [place] Calcium [Mass/Vol] 10.1 mg/dL 8.6 - 10. 4 mg/dL [place] Chloride [Moles/Vol] 95 mmol/L Low 98 - 10 7 mmol/L [place] CO2 [Moles/Vol] 24 mmol/L 20 - 31 mmol/L [place] Creatinine [Mass/Vol] 0.82 mg/dL 0.5 - 0.9 mg/dL [place] GFR >60 >60 mL/min [place] GFR Non- >60 >60 mL/min [place] GFR/1.73 sq M predicted among non-blacks MDRD (S/P/Bld) [Vol rate/Area] [place] Comment on above: Average GFR for 20-2 9 years old: 116 mL/min/1.73sq m Chronic Kidney Disease: <60 mL/min/1.73sq m Kidney failure: <15 mL/min/1.73sq m eGFR calculated using average adult body mass. Additional eGFR calculator available at: http://www.[employer]/multiple_crcl_2012.htm GFR/1.73 sq M predicted among non-blacks MDRD (S/P/Bld) [Vol rate/Area] NOT REPORTED [place] Glucose [Mass/Vol] 134 mg/dL High 70 - 99 mg/dL [place] Interpretation and review of laboratory results Abnormal [place] Potassium [Moles/Vol] 3.7 mmol/L 3.7 - 5.3 mmol/L [place] Protein [Mass/Vol] 8.1 g/dL 6.4 - 8.3 g/dL [place] Sodium [Moles/Vol] 136 mmol/L 135 - 144 mmol/L [place] Urea nitrogen [Mass/Vol] 14 mg/dL 6 - 20 mg/dL [place] Drug screen multi urineon Amphetamine Screen, Ur Negative NEGATIVE [place] Comment on above: (Positive cutoff 500 ng/mL) Barbiturate Screen, Ur Negative NEGATIVE [place] Comment on above: (Positive cutoff 200 ng/mL) Benzodiazepine Screen, Urine Negative NEGATIVE [place] Comment on above: (Positive cutoff 150 ng/mL) Buprenorphine Urine NOT REPORTED NEGATIVE [place] Cannabinoid Scrn, Ur Negative NEGATIVE [place] Comment on above: (Positive cutoff 50 ng/mL) Cocaine Metabolite, Urine Positive Abnormal NEGATIVE [place] Comment on above: (Positive cutoff 150 ng/mL) Interpretation and review of laboratory results Abnormal [place] MDMA, Urine NOT REPORTED NEGATIVE [place] Methadone Screen, Urine Negative NEGATIVE [place] Comment on above: (Positive cutoff 200 ng/mL) Methamphetamine, Urine Negative NEGATIVE [place] Comment on above: (Positive cutoff 500 ng/mL) Opiates, Urine Positive Abnormal NEGATIVE [place] Comment on above: (Positive cutoff 100 ng/mL) Oxycodone Screen, Ur Negative NEGATIVE [place] Comment on above: (Positive cutoff 100 ng/mL) Phencyclidine, Urine Negative NEGATIVE [place] Comment on above: (Positive cutoff 25 ng/mL) Propoxyphene, Urine Negative NEGATIVE [place] Comment on above: (Positive cutoff 300 ng/mL) Test Information NOT REPORTED [place] Tricyclic Antidepressants, Urine Negative NEGATIVE [place] Comment on above: (Positive cutoff 300 ng/mL) Drug screen results are to be used for medical purposes only. All positive results are unconfirmed. Testing for employment or legal uses should be sent to a reference laboratory for confirmation. Lactic Acidon 06-13-2019 Lactate [Moles/Vol] 1.2 mmol/L 0.5 - 2. 2 mmol/L [place] Lipaseon 06-13-2019 Lipase [Catalytic activity/Vol] 8 U/L Low 13 - 60 U/L [place] Microscopic Urinalysison Amorphous, UA NOT REPORTED None [place] Bacteria, UA 2+ Abnormal None [place] Casts UA 5 TO 10 HYALINE /LPF [place] Casts UA 2 TO 5 WAXY /LPF [place] Crystals, UA NOT REPORTED None /HPF [place] Epithelial Cells UA LOADED /HPF [place] Interpretation and review of laboratory results Abnormal [place] Mucus, UA 4+ Abnormal None [place] Other Observations UA NOT REPORTED NOT REQ. [place] RBC (U) [#/Vol] 5 TO 10 [place] Renal Epithelial, UA NOT REPORTED 0 /HPF [place] Trichomonas, UA NOT REPORTED None [place] WBC, UA 10 TO 20 0 /HPF [place] Yeast, UA NOT REPORTED None [facility], [place] Otheron 06-13-2019 Interpretation and review of laboratory results Abnormal [place] Immature granulocytes (Bld) [#/Vol] NOT REPORTED 0 % [place] , Urineon 0 Beta HCG ( test) Ql (U) Negative NEGATIVE [place] Urinalysis, reflex to micros copicon 06-13-2019 Bilirubin Urine 3+ Abnormal [facility] [place] Color, UA BROWN Abnormal YELLOW [place] Glucose, Ur Negative NEGATIVE [place] Interpretation and review of laboratory results Abnormal [place] Ketones Ql (U) MODERATE Abnormal NEGATIVE [place] Leukocyte esterase Test strip Ql (U) 1+ Abnormal NEGATIVE [place] Nitrite, Urine Positive Abnormal NEGATIVE [place] pH, UA 5.0 [place] Protein (U) [Mass/Vol] 1+ Abnormal NEGATIVE [place] Specific [place], UA 1.020 [place], [place] Turbidity UA CLEAR CLEAR [place] Urinalysis Comments [place] Urine Hgb TRACE Abnormal NEGATIVE [place] Urobilinogen, Urine 12 mg/dL Abnormal Normal [place] Vital Signs Date Time Vital Sign Value Performing Clinician Facility 05-13-2023 11:27-0500 Body temperature 98.6 [degF] Jonathan Martinez [facility] 05-13-2023 11:27-0500 Diastolic blood pressure 78 mm[Hg] Jonathan Martinez [facility] 05-13-2023 11:27-0500 Heart rate 83 /min Jonathan Martinez [facility] 05-13-2023 11:27-0500 Respiratory rate 18 /min Jonathan Martinez [facility] 05-13-2023 11:27-0500 SaO2% (BldA) [Mass fraction] 97 % Jonathan Martinez [facility] 05-13-2023 11:27-0500 Systolic blood pressure 113 mm[Hg] Jonathan Martinez [facility] 05-11-2023 21:49-0500 Body temperature 98.06 [degF] [facility] 05-11-2023 21:49-0500 Diastolic blood pressure 84 mm[Hg] [facility] 05-11-2023 21:49-0500 Heart rate 105 /min [facility] 05-11-2023 21:49-0500 Respiratory rate 17 /min [facility] 05-11-2023 21:49-0500 SaO2% (BldA) [Mass fraction] 97 % [facility] 05-11-2023 21:49-0500 Systolic blood pressure 130 mm[Hg] [facility] 05-10-2023 11:41-0500 Body height 160 cm Chet Berumen DO Work Phone: [facility] 05-10-2023 11:41-0500 Body mass index (BMI) [Ratio] 44.29 kg/m2 Chet Berumen DO Work Phone: [facility] [employer] 05-10-2023 11:41-0500 Body temperature 97.9 [degF] Chet Berumen DO Work Phone: [facility] [place] [employer] 05-10-2023 11:41-0500 Body weight 113.4 kg Chet Berumen DO Work Phone: [facility] 05-10-2023 11:41-0500 Diastolic blood pressure 76 mm[Hg] Chet Berumen DO Work Phone: [facility] [place] [employer] 05-10-2023 11:41-0500 Heart rate 94 /min Chet Berumen DO Work Phone: [facility] 05-10-2023 11:41-0500 Respiratory rate 18 /min Chet Lachelle DO Work Phone: [employer] 05-10-2023 11:41-0500 SaO2% (BldA) [Mass fraction] 96 % Chet Berumen DO Work Phone: [facility] [place] [employer] 05-10-2023 11:41-0500 Systolic blood pressure 146 mm[Hg] Chet Berumen DO Work Phone: [facility] [place] [employer] 09-04-2022 11:27-0400 Body height 160 cm Erin Brush MD Work Phone: [employer] 09-04-2022 11:27-0400 Body mass index (BMI) [Ratio] 44.99 kg/m2 Erin Brush MD Work Phone: [employer] 09-04-2022 11:27-0400 Body temperature 98.2 [degF] Erin Brush MD Work Phone: [employer] 09-04-2022 11:27-0400 Body weight 115.21 kg Erin Brush MD Work Phone: [employer] 09-04-2022 11:27-0400 Diastolic blood pressure 71 mm[Hg] Erin Brush MD Work Phone: [employer] 09-04-2022 11:27-0400 Heart rate 88 /min Erin Brush MD Work Phone: [employer] 09-04-2022 11:27-0400 Respiratory rate 18 /min Erin Brush MD Work Phone: [employer] 09-04-2022 11:27-0400 SaO2% (BldA) [Mass fraction] 97 % Erin Brush MD Work Phone: [employer] 09-04-2022 11:27-0400 Systolic blood pressure 124 mm[Hg] Erin Brush MD Work Phone: [employer] 06-29-2022 09:49-0400 Diastolic blood pressure 57 mm[Hg] Todd Smart [facility] 06-29-2022 09:49-0400 Heart rate 73 /min Todd Smart [facility] 06-29-2022 09:49-0400 Mean blood pressure 76 mm[Hg] Todd Smart [facility] 06-29-2022 09:49-0400 Respiratory rate 16 /min Todd Smart [facility] 06-29-2022 09:49-0400 Systolic blood pressure 113 mm[Hg] Todd Smart [facility] 05-19-2022 19:28-0400 Body height 160 cm Erin Brush MD Work Phone: [employer] 05-19-2022 19:28-0400 Body mass index (BMI) [Ratio] 45.17 kg/m2 Erin Brush MD Work Phone: [employer] 05-19-2022 19:28-0400 Body weight 115.67 kg Erin Brush MD Work Phone: [employer] 05-19-2022 19:25-0400 Body temperature 98.29 [degF] Erin Brush MD Work Phone: [employer] 05-19-2022 19:25-0400 Diastolic blood pressure 68 mm[Hg] Erin Brush MD Work Phone: [employer] 05-19-2022 19:25-0400 Heart rate 78 /min Erin Brush MD Work Phone: [employer] 05-19-2022 19:25-0400 Respiratory rate 16 /min Erin Brush MD Work Phone: [employer] 05-19-2022 19:25-0400 SaO2% (BldA) [Mass fraction] 98 % Erin Brush MD Work Phone: [employer] 05-19-2022 19:25-0400 Systolic blood pressure 110 mm[Hg] Erin Brush MD Work Phone: [employer] 05-11-2022 19:17-0500 Body height 160 cm Allegra Quinn MD Work Phone: [employer] 05-11-2022 19:17-0500 Body mass index (BMI) [Ratio] 45.06 kg/m2 Allegra Quinn MD Work Phone: [employer] 05-11-2022 19:17-0500 Body temperature 98.01 [degF] Allegra Quinn MD Work Phone: [employer] 05-11-2022 19:17-0500 Body weight 115.39 kg Allegra Quinn MD Work Phone: [employer] 05-11-2022 19:17-0500 Diastolic blood pressure 91 mm[Hg] Allegra Quinn MD Work Phone: [employer] 05-11-2022 19:17-0500 Heart rate 78 /min Allegra Quinn MD Work Phone: [employer] 05-11-2022 19:17-0500 Respiratory rate 18 /min Allegra Quinn MD Work Phone: [employer] 05-11-2022 19:17-0500 SaO2% (BldA) [Mass fraction] 96 % Allegra Quinn MD Work Phone: [employer] 05-11-2022 19:17-0500 Systolic blood pressure 121 mm[Hg] Allegra Quinn MD Work Phone: [employer] 10-12-2021 18:31-0400 Heart rate 93 /min Rishabh Mancini MD Work Phone: [employer] 10-12-2021 18:31-0400 Respiratory rate 16 /min Rishabh Mancini MD Work Phone: [employer] 10-12-2021 18:31-0400 SaO2% (BldA) [Mass fraction] 97 % Rishabh Mancini MD Work Phone: [employer] 10-12-2021 18:12-0400 Body height 160 cm Rishabh Mancini MD Work Phone: [employer] 10-12-2021 18:12-0400 Body mass index (BMI) [Ratio] 47.12 kg/m2 Rishabh Mancini MD Work Phone: [employer] 10-12-2021 18:12-0400 Body temperature 99.19 [degF] Rishabh Mancini MD Work Phone: [employer] 10-12-2021 18:12-0400 Body weight 120.66 kg Rishabh Mancini MD Work Phone: [employer] 10-12-2021 18:12-0400 Diastolic blood pressure 77 mm[Hg] Rishabh Mancini MD Work Phone: [employer] 10-12-2021 18:12-0400 Systolic blood pressure 126 mm[Hg] Rishabh Mancini MD Work Phone: [employer] 07-22-2021 10:38-0400 Body height 160 cm Clark Moser MD Work Phone: [employer] 07-22-2021 10:38-0400 Body mass index (BMI) [Ratio] 47.63 kg/m2 Clark Moser MD Work Phone: [employer] 07-22-2021 10:38-0400 Body temperature 97.3 [degF] Clark Moser MD Work Phone: [employer] 07-22-2021 10:38-0400 Body weight 121.97 kg Clark Moser MD Work Phone: [employer] 07-22-2021 10:38-0400 Diastolic blood pressure 88 mm[Hg] Clark Moser MD Work Phone: [facility] 07-22-2021 10:38-0400 Heart rate 104 /min Clark Moser MD Work Phone: [facility] 07-22-2021 10:38-0400 Respiratory rate 18 /min Clark Moser MD Work Phone: [facility] 07-22-2021 10:38-0400 SaO2% (BldA) [Mass fraction] 95 % Clark Moser MD Work Phone: [facility] 07-22-2021 10:38-0400 Systolic blood pressure 126 mm[Hg] Clark Moser MD Work Phone: [facility] 05-15-2021 09:11-0500 Body height 160 cm Angelito Harvey [facility] 05-14-2021 10:41-0500 Body height 160 cm Farhat Vang MD Work Phone: [facility] 05-14-2021 10:41-0500 Body mass index (BMI) [Ratio] 44.96 kg/m2 Farhat Vang MD Work Phone: [facility] 05-14-2021 10:41-0500 Body temperature 97.81 [degF] Farhat Vang MD Work Phone: [facility] 05-14-2021 10:41-0500 Body weight 115.12 kg Farhat Vang MD Work Phone: [facility] 05-14-2021 10:41-0500 Diastolic blood pressure 78 mm[Hg] Farhat Vang MD Work Phone: [facility] 05-14-2021 10:41-0500 Heart rate 98 /min Farhat Vang MD Work Phone: [facility] 05-14-2021 10:41-0500 Respiratory rate 18 /min Farhat Vang MD Work Phone: [facility] 05-14-2021 10:41-0500 SaO2% (BldA) [Mass fraction] 97 % Farhat Vang MD Work Phone: [facility] 05-14-2021 10:41-0500 Systolic blood pressure 124 mm[Hg] Farhat Vang MD Work Phone: [facility] 04-16-2021 10:15-0500 Body height 160 cm Farhat Vang MD Work Phone: [facility] 04-16-2021 10:15-0500 Body mass index (BMI) [Ratio] 44.44 kg/m2 Farhat Vang MD Work Phone: [facility] [facility] 04-16-2021 10:15-0500 Body temperature 98.01 [degF] Farhat Vang MD Work Phone: [facility] 04-16-2021 10:15-0500 Body weight 113.81 kg Farhat Vang MD Work Phone: [facility] 04-16-2021 10:15-0500 Diastolic blood pressure 78 mm[Hg] Farhat Vang MD Work Phone: [facility] 04-16-2021 10:15-0500 Heart rate 100 /min Farhat Vang MD Work Phone: [facility] 04-16-2021 10:15-0500 Respiratory rate 18 /min Farhat Vang MD Work Phone: [facility] 04-16-2021 10:15-0500 SaO2% (BldA) [Mass fraction] 96 % Farhat Vang MD Work Phone: [facility] 04-16-2021 10:15-0500 Systolic blood pressure 122 mm[Hg] Farhat Vang MD Work Phone: [facility] 03-23-2021 12:40-0500 Body height 160 cm Allegra Quinn MD Work Phone: [facility] 03-23-2021 12:40-0500 Body mass index (BMI) [Ratio] 44.46 kg/m2 Allegra Quinn MD Work Phone: [employer] 03-23-2021 12:40-0500 Body temperature 99.7 [degF] Allegra Quinn MD Work Phone: [employer] 03-23-2021 12:40-0500 Body weight 113.85 kg Allegra Quinn MD Work Phone: [employer] 03-23-2021 12:40-0500 Diastolic blood pressure 74 mm[Hg] Allegra Quinn MD Work Phone: [employer] 03-23-2021 12:40-0500 Heart rate 107 /min Allegra Quinn MD Work Phone: [employer] 03-23-2021 12:40-0500 Respiratory rate 16 /min Allegra Quinn MD Work Phone: [employer] 03-23-2021 12:40-0500 SaO2% (BldA) [Mass fraction] 96 % [facility] 03-23-2021 12:40-0500 Systolic blood pressure 131 mm[Hg] Allegra Quinn MD Work Phone: [facility] [employer] 01-15-2021 10:43-0500 Body height 160 cm Holland Ann MD Work Phone: [facility] 01-15-2021 10:43-0500 Body mass index (BMI) [Ratio] 42.55 kg/m2 Holland Ann MD Work Phone: [facility] 01-15-2021 10:43-0500 Body temperature 97.39 [degF] Holland Ann MD Work Phone: [facility] 01-15-2021 10:43-0500 Body weight 108.95 kg Holland Ann MD Work Phone: [facility] 01-15-2021 10:43-0500 Diastolic blood pressure 66 mm[Hg] Holland Ann MD Work Phone: [facility] 01-15-2021 10:43-0500 Heart rate 101 /min Holland Ann MD Work Phone: [facility] 01-15-2021 10:43-0500 SaO2% (BldA) [Mass fraction] 96 % Holland Ann MD Work Phone: [facility] 01-15-2021 10:43-0500 Systolic blood pressure 112 mm[Hg] Holland Ann MD Work Phone: [facility] 12-27-2020 18:15-0400 Body temperature 98.49 [degF] Wayne Springer MD Work Phone: [employer] Work Phone: 12-27-2020 18:15-0400 Diastolic blood pressure 77 mm[Hg] Wayne Springer MD Work Phone: [employer] Work Phone: Comment on above: Simultaneous filing. User may not have s een previous data. 12-27-2020 18:15-0400 Heart rate 98 /min Wayne Springer MD Work Phone: [employer] Work Phone: 12-27-2020 18:15-0400 Respiratory rate 20 /min Wayne Springer MD Work Phone: [employer] Work Phone: 12-27-2020 18:15-0400 SaO2% (BldA) [Mass fraction] 95 % Wayne Springer MD Work Phone: [employer] Work Phone: Comment on above: Simultaneous filing. User may not have s een previous data. 12-27-2020 18:15-0400 Systolic blood pressure 107 mm[Hg] Wayne Springer MD Work Phone: [employer] Work Phone: Comment on above: Simultaneous filing. User may not have s een previous data. 11-20-2020 21:07-0400 Body height 160 cm Allegra Quinn MD Work Phone: [employer] Work Phone: 11-20-2020 21:07-0400 Body mass index (BMI) [Ratio] 38.62 kg/m2 Allegra Quinn MD Work Phone: [employer] Work Phone: 11-20-2020 21:07-0400 Body temperature 98.6 [degF] Allegra Quinn MD Work Phone: [employer] Work Phone: 11-20-2020 21:07-0400 Body weight 98.88 kg Allegra Quinn MD Work Phone: [employer] Work Phone: 11-20-2020 21:07-0400 Diastolic blood pressure 65 mm[Hg] Allegra Quinn MD Work Phone: [employer] Work Phone: 11-20-2020 21:07-0400 Heart rate 84 /min Allegra Quinn MD Work Phone: [employer] Work Phone: 11-20-2020 21:07-0400 Respiratory rate 16 /min Allegra Quinn MD Work Phone: [employer] Work Phone: 11-20-2020 21:07-0400 SaO2% (BldA) [Mass fraction] 97 % Allegra Quinn MD Work Phone: [employer] Work Phone: 11-20-2020 21:07-0400 Systolic blood pressure 113 mm[Hg] Allegra Quinn MD Work Phone: [employer] Work Phone: 11-07-2020 16:28-0400 Body height 160 cm Nicholas Roger MD Work Phone: [employer] Work Phone: 11-07-2020 16:28-0400 Body mass index (BMI) [Ratio] 38.26 kg/m2 Nicholas Roger MD Work Phone: [employer] Work Phone: 11-07-2020 16:28-0400 Body temperature 98.8 [degF] Nicholas Roger MD Work Phone: [employer] Work Phone: 11-07-2020 16:28-0400 Body weight 97.98 kg Nicholas Roger MD Work Phone: [employer] Work Phone: 11-07-2020 16:28-0400 Diastolic blood pressure 71 mm[Hg] Nicholas Roger MD Work Phone: [employer] Work Phone: 11-07-2020 16:28-0400 Heart rate 98 /min Nicholas Roger MD Work Phone: [employer] Work Phone: 11-07-2020 16:28-0400 Respiratory rate 18 /min Nicholas Roger MD Work Phone: [employer] Work Phone: 11-07-2020 16:28-0400 SaO2% (BldA) [Mass fraction] 94 % Nicholas Roger MD Work Phone: [employer] Work Phone: 11-07-2020 16:28-0400 Systolic blood pressure 120 mm[Hg] Nicholas Roger MD Work Phone: [employer] Work Phone: 07-09-2020 10:52-0400 Body height 160 cm Zelda Bautista CNP Work Phone: [facility] 07-09-2020 10:52-0400 Body mass index (BMI) [Ratio] 41.27 kg/m2 Zelda Bautista [employer] Work Phone: [facility] 07-09-2020 10:52-0400 Body weight 105.69 kg Zelda Bautista CNP Work Phone: [facility] 07-09-2020 10:52-0400 Diastolic blood pressure 70 mm[Hg] Zelda Bautista CNP Work Phone: [facility] 07-09-2020 10:52-0400 Heart rate 97 /min Zelda Bautista CNP Work Phone: [facility] 07-09-2020 10:52-0400 Systolic blood pressure 101 mm[Hg] Zelda Bautista CNP Work Phone: [facility] 06-24-2020 09:48-0400 Body mass index (BMI) [Ratio] 40.92 kg/m2 Allegra Quinn MD Work Phone: [employer] Work Phone: 06-24-2020 09:48-0400 Body temperature 97.9 [degF] Allegra Quinn MD Work Phone: [employer] Work Phone: 06-24-2020 09:48-0400 Body weight 104.78 kg Allegra Quinn MD Work Phone: [employer] Work Phone: 06-24-2020 09:48-0400 Diastolic blood pressure 64 mm[Hg] Allegra Quinn MD Work Phone: [employer] Work Phone: 06-24-2020 09:48-0400 Heart rate 120 /min Allegra Quinn MD Work Phone: [employer] Work Phone: 06-24-2020 09:48-0400 Respiratory rate 18 /min Allegra Quinn MD Work Phone: [employer] Work Phone: 06-24-2020 09:48-0400 SaO2% (BldA) [Mass fraction] 100 % Allegra Quinn MD Work Phone: [employer] Work Phone: 06-24-2020 09:48-0400 Systolic blood pressure 115 mm[Hg] Allegra Quinn MD Work Phone: [employer] Work Phone: 06-09-2020 10:44-0400 Body height 160 cm Lelo Gallegos MD Work Phone: [facility] 06-09-2020 10:44-0400 Body mass index (BMI) [Ratio] 41.27 kg/m2 Lelo Gallegos MD Work Phone: [facility] 06-09-2020 10:44-0400 Body weight 105.69 kg Lelo Gallegos MD Work Phone: [facility] 06-09-2020 10:44-0400 Diastolic blood pressure 75 mm[Hg] Lelo Gallegos MD Work Phone: [facility] 06-09-2020 10:44-0400 Heart rate 116 /min Lelo Gallegos MD Work Phone: [facility] 06-09-2020 10:44-0400 Systolic blood pressure 110 mm[Hg] Lelo Gallegos MD Work Phone: [facility] 03-26-2020 22:17-0500 Pulse (Heart Rate) 98 /min [facility] [place] 03-26-2020 21:43-0500 BP Diastolic 66 mm[Hg] [facility] [place] 03-26-2020 21:43-0500 BP Systolic 99 mm[Hg] [facility] [place] 03-26-2020 21:43-0500 Pulse Oximetry 95 % [facility] [place] 03-26-2020 20:50-0500 Respiratory Rate 16 /min Brie Kozio- [facility], [place] 03-26-2020 20:13-0500 BMI (Body Mass Index) 40.14 kg/m2 [facility] [place] 03-26-2020 20:13-0500 Body Temperature 98.2 [degF] Brie Jorgensen [facility] [place] 03-26-2020 20:13-0500 Body weight 102.78 kg Brie Jorgensen [facility] , [place] 02-15-2020 18:22-0500 BMI (Body Mass Index) 39.75 kg/m2 Brie Jorgensen [facility] [place], [place] 02-15-2020 18:22-0500 Body Temperature 98.6 [degF] Brie Jorgensen [facility] [place] 02-15-2020 18:22-0500 Body weight 101.79 kg Brie Moreno [facility] , [place] 02-15-2020 18:22-0500 BP Diastolic 78 mm[Hg] [facility] [place] [facility] [place] 02-15-2020 18:22-0500 BP Systolic 127 mm[Hg] [facility] [place] [facility] [place] 02-15-2020 18:22-0500 Height 160 cm Brie Jorgensen [facility] , [place] 02-15-2020 18:22-0500 Pulse (Heart Rate) 92 /min [facility] [place] 02-15-2020 18:22-0500 Pulse Oximetry 99 % [facility] [place] 02-15-2020 18:22-0500 Respiratory Rate 20 /min Brie Jorgensen [facility], [place] 11-20-2019 18:48-0400 BP Diastolic 75 mm[Hg] Allegra Quinn [facility], [place] 11-20-2019 18:48-0400 BP Systolic 128 mm[Hg] [facility] [place], [place] 11-20-2019 18:48-0400 Pulse (Heart Rate) 83 /min Allegra Quinn [facility] [place], [place] 11-20-2019 18:48-0400 Pulse Oximetry 97 % Allegra Quinn [facility], [place] 11-20-2019 18:48-0400 Respiratory Rate 18 /min Allegra Quinn [facility] [place], [place] 11-20-2019 17:00-0400 BMI (Body Mass Index) 36.31 kg/m2 Allegra Quinn [facility], [place] 11-20-2019 17:00-0400 Body Temperature 98.4 [degF] Allegra Quinn [facility], [place] 11-20-2019 17:00-0400 Body weight 92.99 kg Allegra Quinn [facility], [place] 11-03-2019 11:37-0400 BMI (Body Mass Index) 34.47 kg/m2 Wayne [facility] [place] 11-03-2019 11:37-0400 Body Temperature 98.71 [degF] [facility] [place] 11-03-2019 11:37-0400 Body weight 88.27 kg [facility], [place] 11-03-2019 11:37-0400 BP Diastolic 66 mm[Hg] [facility], [place] 11-03-2019 11:37-0400 BP Systolic 117 mm[Hg] [facility], [place] 11-03-2019 11:37-0400 Height 160 cm [place], [place] 11-03-2019 11:37-0400 Pulse (Heart Rate) 87 /min [place], [place] 11-03-2019 11:37-0400 Pulse Oximetry 99 % [facility], [place] 11-03-2019 11:37-0400 Respiratory Rate 20 /min [place] 08-13-2019 19:42-0400 BMI (Body Mass Index) 31 kg/m2 [facility] 08-13-2019 19:42-0400 Body Temperature 98.6 [degF] [facility] 08-13-2019 19:42-0400 Body weight 79.38 kg [facility] 08-13-2019 19:42-0400 Height 160 cm [facility] 08-13-2019 19:40-0400 BP Diastolic 60 mm[Hg] [facility] 08-13-2019 19:40-0400 BP Systolic 156 mm[Hg] [facility] 08-13-2019 19:40-0400 Pulse (Heart Rate) 138 /min [facility] 08-13-2019 19:40-0400 Pulse Oximetry 98 % Christian Martinez [facility] 08-13-2019 19:40-0400 Respiratory Rate 16 /min Christian nancie [facility] 06-17-2019 12:45-0400 Respiratory Rate 18 /min [facility] 06-17-2019 07:54-0400 Body Temperature 97.81 [degF] [facility] 06-17-2019 07:54-0400 BP Diastolic 66 mm[Hg] [facility] 06-17-2019 07:54-0400 BP Systolic 99 mm[Hg] [facility] 06-17-2019 07:54-0400 Pulse (Heart Rate) 82 /min [facility] 06-17-2019 07:54-0400 Pulse Oximetry 94 % [facility] 06-14-2019 08:15-0400 BMI (Body Mass Index) 32.92 kg/m2 [facility] 06-14-2019 08:15-0400 Body weight 81.65 kg [facility] 06-14-2019 08:15-0400 Height 157.5 cm [facility] 06-14-2019 04:20-0400 Pulse (Heart Rate) 83 /min [facility] [place] [place] 06-14-2019 04:05-0400 BP Diastolic 58 mm[Hg] [facility] [place] [facility] [place] 06-14-2019 04:05-0400 BP Systolic 95 mm[Hg] [facility] , [place] 06-14-2019 04:05-0400 Pulse Oximetry 95 % [facility] , [place] 06-14-2019 01:12-0400 Respiratory Rate 18 /min [facility] [place] 06-14-2019 00:10-0400 Body Temperature 100.51 [degF] [facility] [place] 06-13-2019 22:00-0400 BMI (Body Mass Index) 32.31 kg/m2 [facility] [place] [place] 06-13-2019 22:00-0400 Body weight 82.74 kg Brie [facility] [place] [facility] [place] 06-13-2019 22:00-0400 Height 160 cm [facility] , [place] 04-28-2019 19:58-0500 Body Temperature 98.8 [degF] Roslyn Jorgensen [facility] [place] 04-28-2019 19:58-0500 BP Diastolic 70 mm[Hg] Roslyn Jorgensen [facility] , [place] 04-28-2019 19:58-0500 BP Systolic 98 mm[Hg] Roslyn Jorgensen [place] 04-28-2019 19:58-0500 Pulse (Heart Rate) 119 /min Roslyn Jorgensen [facility], [place] 04-28-2019 19:58-0500 Pulse Oximetry 100 % Roslyn Jorgensen [facility] , [place] 04-28-2019 19:58-0500 Respiratory Rate 30 /min Roslyn Jorgensen [facility], [place] 04-28-2019 19:54-0500 BMI (Body Mass Index) 30.65 kg/m2 Roslyn Jorgensen [facility], [place] 04-28-2019 19:54-0500 Body weight 78.47 kg Roslyn Jorgensen [facility] , [place] 04-28-2019 19:54-0500 Height 160 cm Roslyn Jorgensen [facility] , [place] Encounters Encounter Date Encounter Type Care Provider Facility Start: 05-13-2023 End: 05-13-2023 Emergency department patient visit Jonathan Martinez [facility] Start: 05-13-2023 End: 05-13-2023 Emergency department patient visit Jonathan Martinez [facility] Start: 05-11-2023 End: 05-12-2023 Emergency department patient visit Zac Holguinkamryn Facility:[facility] Start: 05-11-2023 End: 05-11-2023 [facility] Start: 05-10-2023 End: 05-10-2023 Emergency department patient visit CHET BERUMEN [facility] Start: 05-10-2023 End: 05-10-2023 Emergency department patient visit CHET BERUMEN [facility] Start: 05-10-2023 End: 05-10-2023 Emergency department patient visit Chet Berumen DO Work Phone: [facility] Comment on above: Toothache (Primary D x); Dental decay Start: 12-27-2022 End: 12-28-2022 ambulatory MARK DUMONT [facility] Start: 11-23-2022 End: 11-24-2022 ambulatory MARK RAYRAY MEJIAO [facility] Start: 09-04-2022 Emergency department patient visit LINDA SHEPPARD [facility] Start: 09-04-2022 End: 09-04-2022 Emergency department patient visit Erin Brush MD Work Phone: [facility] Comment on above: Sprain of right ankl e, unspecified ligament, initial encounter (Primary Dx) Start: 06-29-2022 End: 06-30-[address] MRAK DUMONT . Facility: Start: 06-29-2022 End: 06-30-2022 ambulatory Linda Sheppard Facility:[facility] Start: 06-29-2022 End: 06-29-2022 Pain Management Todd Smart [facility] Start: 06-14-2022 End: 06-14-[address] MARK DUMONT . Facility: Start: 05-19-2022 Emergency department patient visit Khushi GUARDADO~[id number] STEVIE BRUSH [facility] Start: 05-19-2022 End: 05-19-2022 Emergency department patient visit Erin Brush MD Work Phone: [facility] Comment on above: Dry socket (Primary Dx) Start: 05-11-2022 End: 05-11-2022 Emergency department patient visit ALLEGRA QUINN [facility] Start: 05-11-2022 End: 05-11-2022 Emergency department patient visit Allegra Quinn MD Work Phone: [facility] Comment on above: Masseter muscle spas m (Primary Dx); Other acute postprocedural pain Start: 03-30-[address] MARK DUMONT . Facili ty:[facility] Start: 03-29-2022 End: 03-29-2022 Subsequent hospital visit by physician [facility] Start: 10-12-2021 End: 10-12-2021 Emergency department patient visit Rishabh Mancini MD Work Phone: [facility] Comment on above: Acute bronchitis, un specified organism (Primary Dx) Start: 07-22-2021 End: 07-22-2021 Emergency department patient visit Clark Moser MD Work Phone: [facility] Comment on above: Acute pharyngitis, u nspecified etiology (Primary Dx) Start: 07-07-2021 ambulatory BRIE ROCA [facility] Ambulatory Start: 06-18-2021 ambulatory [facility] Start: 06-17-2021 End: 06-18-2021 ambulatory [facility] Start: 05-15-2021 End: 05-19-2021 ambulatory [facility] Start: 05-15-2021 End: 05-15-2021 Nutrition therapy Farhat Vang MD Work Phone: [facility] Comment on above: Morbid obesity with body mass index (BMI) of 40.0 or higher (HCC) Start: 05-14-2021 End: 05-18-2021 ambulatory [facility] Start: 05-14-2021 End: 05-14-2021 Office outpatient visit 15 minutes Farhat Vang MD Work Phone: [facility] Comment on above: Anxiety and depressi on (Primary Dx); At risk for obstructive sleep apnea; Chronic bilateral low back pain without sciatica; Hepatitis C antibody positive in blood; Body mass index 40.0-44.9, adult (HCC); History of opioid abuse (HCC) Start: 04-16-2021 End: 04-20-2021 ambulatory [facility] Start: 04-16-2021 End: 04-16-2021 Initial preventive medicine new pt age 18-39yrs Farhat Vang MD Work Phone: [facility] Comment on above: Encounter for genera l adult medical examination with abnormal findings (Primary Dx); Anxiety and depression; History of opioid abuse (HCC); Morbid obesity with body mass index (BMI) of 40.0 or higher (HCC) Start: 04-16-2021 End: 04-16-2021 Patient encounter status Farhat Vang MD Work Phone: [facility] Start: 03-23-2021 End: 03-23-2021 Emergency department patient visit Allegra Quinn MD Work Phone: [facility] Comment on above: COVID-19 (Primary Dx ); Omphalitis in adult Start: 02-16-2021 End: 02-20-2021 ambulatory [facility] Start: 02-12-2021 End: 02-16-2021 ambulatory PHYSICIAN [facility] Start: 02-10-2021 End: 02-14-2021 ambulatory [facility] Start: 02-02-2021 End: 02-06-2021 ambulatory PHYSICIAN [facility] Start: 01-15-2021 Documentation procedure Jeimy goodman [facility] Start: 01-15-2021 End: 01-15-2021 ambulatory HOLLAND WHIPPLE SETH [facility] Ambulatory Start: 01-15-2021 End: 01-15-2021 Office outpatient new 30 minutes Holland Ann MD Work Phone: [facility] Comment on above: Hemorrhoids, unspeci fied hemorrhoid type Start: 12-29-2020 End: 01-02-2021 ambulatory PHYSICIAN [facility] Start: 12-27-2020 End: 12-27-2020 Emergency department patient visit Wayne Spirnger MD Work Phone: [facility] Comment on above: Viral syndrome (Prim rpakash Dx) Start: 11-20-2020 End: 11-20-2020 Emergency department patient visit Allegra Quinn MD Work Phone: [facility] Comment on above: Strain of rhomboid m uscle, initial encounter; Chest wall muscle strain, initial encounter Start: 11-07-2020 End: 11-07-2020 Emergency department patient visit Nicholas Roger MD Work Phone: [facility] Comment on above: Viral URI (Primary D x) Start: 08-28-2020 End: 08-30-2020 Evaluation and management of inpatient [facility] Start: 08-25-2020 End: 08-25-2020 ambulatory PHYSICIAN [facility] Start: 07-29-2020 End: 08-02-2020 ambulatory PHYSICIAN [facility] Start: 07-22-2020 End: 07-26-2020 ambulatory [facility] Start: 07-22-2020 End: 07-22-2020 Telemedicine consultation with patient Lelo Gallegos MD Work Phone: [facility] Comment on above: Diet controlled gest ational diabetes mellitus (GDM) in third trimester Start: 07-10-2020 [facility] Start: 07-09-2020 End: 07-09-2020 ambulatory ZELDA BAUTSITA [facility] Start: 07-09-2020 End: 07-09-2020 Office outpatient visit 15 minutes Zelda Bautista CNP Work Phone: [facility]ocrinology Phys[facility] Comment on above: Diet controlled gest ational diabetes mellitus (GDM) in third trimester (Primary Dx) Start: 06-24-2020 End: 06-24-2020 Emergency department patient visit Allegra Quinn MD Work Phone: [facility] Comment on above: Acute frontal sinusi tis, recurrence not specified (Primary Dx) Start: 06-10-2020 End: 06-10-2020 Nutrition therapy Lelo Gallegos Work Phone: [facility] Comment on above: Diet controlled gest ational diabetes mellitus (GDM) in second trimester Start: 06-09-2020 End: 06-09-2020 Office outpatient new 30 minutes Roslyn Stevenson MD Work Phone: [facility]in[facility] Comment on above: Diet controlled gest ational diabetes mellitus (GDM) in second trimester Start: 05-27-2020 End: 05-31-2020 ambulatory PHYSICIAN [facility] Start: 05-21-2020 End: 05-25-2020 ambulatory PHYSICIAN [facility] Start: 03-26-2020 End: 03-26-2020 Emergency department patient visit Brie Moreno Work Phone: [facility] Comment on above: Atypical pneumonia ( Primary Dx) Start: 02-15-2020 End: 02-15-2020 Emergency department patient visit Brie Moreno Work Phone: [facility] Comment on above: Pain, dental (Primar y Dx); Acute gingivitis; Alveolar osteitis Start: 11-20-2019 End: 11-20-2019 Emergency department patient visit Allegra Quinn Work Phone: [facility] Comment on above: Bacterial vaginosis (Primary Dx); Trichimoniasis; Furuncle of left axilla Start: 11-03-2019 End: 11-03-2019 Emergency department patient visit Wayne Wahl Juan Ramonjuan Work Phone: [facility] Comment on above: Poison arabella (Primary Dx) Start: 08-20-2019 End: 08-21-2019 Patient encounter procedure HODA CASSY [facility] Start: 08-20-2019 End: 08-20-2019 Subsequent hospital visit by physician [facility] Start: 08-13-2019 End: 08-13-2019 Emergency department patient visit Christian Martinez Work Phone: [facility] Emergency Department Comment on above: Heroin abuse (HCC) ( Primary Dx) Start: 06-20-2019 End: 06-20-2019 Patient encounter procedure Alisa Palencia Work Phone: [facility] Comment on above: Hepatitis C virus in fection without hepatic coma, unspecified chronicity (Primary Dx) Start: 06-18-2019 End: 06-18-2019 [address]ation [address] Torres [facility] Start: 06-18-2019 Follow-up encounter Taryn Cartagena [facility] Comment on above: Transition Of Care Start: 06-18-2019 End: 06-18-2019 Patient encounter procedure Taryn Torres [facility] Start: 06-14-2019 End: 06-17-2019 Evaluation and management of inpatient [facility] Work Phone: [facility] Comment on above: Elevated LFTs; IVDA (intravenous drug abuse) complicating (HCC) Start: 06-13-2019 End: 06-14-2019 Emergency department patient visit Brie Moreno Work Phone: [facility] Comment on above: Abdominal pain, unsp ecified abdominal location (Primary Dx); Urinary tract infection with hematuria, site unspecified; Viral hepatitis without hepatic coma, unspecified chronicity, unspecified viral hepatitis type; Polysubstance abuse (HCC); Hyperbilirubinemia Start: 04-28-2019 End: 04-28-2019 Emergency department patient visit Roslyn Keating Work Phone: [facility] ED Comment on above: Accidental overdose of heroin, initial encounter (HCC) (Primary Dx) Start: 12-20-2016 End: 01-02-2020 Cancer cervix - screening done Lelo Gallegos MD Work Phone: [facility] Start: 12-20-2016 End: 01-02-2020 Encounter for gynecological examination (general) (routine) without abnormal findings Jeimy Tan [employer] [facility] Procedures Date Procedure Procedure Detail Performing Clinician Start: 09-04-2022 Radex ankle complete minimum 3 views Erin Brush MD Work Phone: Start: 09-04-2022 Urine test visual color cmprsn randy Brush MD Work Phone: Start: 05-11-2022 Ct maxillofacial w/o contrast material Allegra Quinn MD Work Phone: Start: 05-11-2022 Urine test visual color cmprsn randy Quinn MD Work Phone: Start: 03-29-2022 Gonadotropin chorion ic quantitative Mark Rayray Dumont MD Work Phone: Start: 07-22-2021 COVID-, RAPID Clark Moser MD Work Phone: Start: 07-22-2021 Iaadiadoo streptococ cus group a Clark Moser MD Work Phone: Start: 03-23-2021 BASIC METABOLIC PANE L W/ REFLEX TO MG FOR LOW K Allegra Quinn MD Work Phone: Start: 03-23-2021 Blood count complete auto&auto difrntl wbc Allegra Quinn MD Work Phone: Start: 03-23-2021 COVID-, RAPID Parish Quinn MD Work Phone: Start: 03-23-2021 Iaadiadoo influenza Chr daryl Quinn MD Work Phone: Start: 12-29-2020 Microscopic observat ion [Identifier] in Cervix by Cyto stain Jeimy Tan LPN Start: 12-27-2020 COVID-, RAPID Wayne Springer MD Work Phone: Start: 12-27-2020 Iaadiadoo streptococ cus group a Wayne Springer MD Work Phone: Start: 11-20-2020 Radex shoulder compl ete minimum 2 views Allegra Quinn Work Phone: Start: 07-09-2020 Hemoglobin glycosylated a1c Zelda Bautista CNP Work Phone: Start: 06-09-2020 Hemoglobin glycosylated a1c Lelo Gallegos MD Work Phone: Start: 03-26-2020 COVID- Brie Branham Work Phone: Start: 03-26-2020 Urnls dip stick/tabl et rgnt auto w/o microscopy Brie Moreno Work Phone: Start: 03-26-2020 Blood count complete auto&auto difrntl wbc Brie Moreno Work Phone: Start: 03-17-2020 Adult depression scr eening assessment Neris Ulloa RD Start: 11-20-2019 Smr prim src wet harrison nt nfct agt Allegra Quinn Work Phone: Start: 11-01-2019 Microscopic observat ion [Identifier] in Cervix by Cyto stain Neris Ulloa Start: 06-17-2019 Basic metabolic 2000 panel - Serum or Plasma Raquib Ahmed Faruqui Work Phone: Start: 06-17-2019 Hepatic function 200 0 panel - Serum or Plasma Raquib Ahmed Faruqui Work Phone: Start: 06-16-2019 Bilirubin.direct [Mass/volume] in Serum or Plasma Indra Pruitt Work Phone: Start: 06-16-2019 Complete blood count (hemogram) panel - Blood by Automated count Indra Pruitt Work Phone: Start: 06-16-2019 Comprehensive metabo lic 2000 panel - Serum or Plasma Indra Pruitt Work Phone: Start: 06-15-2019 Radionuclide hepatob iliary study Indra Pruitt Work Phone: Start: 06-15-2019 Bilirubin.direct [Mass/volume] in Serum or Plasma Carli Machelle Sims Work Phone: Start: 06-15-2019 Complete blood count (hemogram) panel - Blood by Automated count Carli Machelle Sims Work Phone: Start: 06-15-2019 Comprehensive metabo lic 2000 panel - Serum or Plasma Carli Machelle Sims Work Phone: Start: 06-14-2019 Computerized tomogra phy, limited studies External Transcribed Start: 06-14-2019 Mri abdomen w/o cont rast material Indra Pruitt Work Phone: Start: 06-14-2019 Drugs of abuse urine screening test Indra Pruitt Work Phone: Start: 06-14-2019 Urinalysis Carli Ro constantine Sims Work Phone: Start: 06-14-2019 Acetaminophen [Mass/ volume] in Serum or Plasma Indra Pruitt Work Phone: Start: 06-14-2019 Bilirubin.direct [Mass/volume] in Serum or Plasma Indra Handylivan Work Phone: Start: 06-14-2019 Complete blood count with white cell differential, automated Indra Handylivan Work Phone: Start: 06-14-2019 Complete blood count with white cell differential, manual Indra Handylivan Work Phone: Start: 06-14-2019 Comprehensive metabo lic 2000 panel - Serum or Plasma Indra Handylivan Work Phone: Start: 06-14-2019 Hepatitis panel measurement Indra Handylivan Work Phone: Start: 06-14-2019 INR in Platelet poor plasma by Coagulation assay Indra Handylivan Work Phone: Start: 06-14-2019 Lactate [Moles/volum e] in Serum or Plasma Indra Castro Edmond Work Phone: Start: 06-14-2019 Manual Differential panel - Blood Indra Handylivan Work Phone: Start: 06-14-2019 Red blood cell morphology Indra Handylivan Work Phone: Start: 06-14-2019 Salicylates [Mass/vo lume] in Serum or Plasma Indra Castro Edmond Work Phone: Start: 06-14-2019 US scan of upper abdomen Indra Castro Edmond Work Phone: Start: 06-13-2019 Ct abdomen & pelvis w/contrast material Brie Moreno Work Phone: Start: 06-13-2019 Urinalysis microscopic only Brie Moreno Work Phone: Start: 06-13-2019 Urine test visual color cmprsn meths Brie Moreno Work Phone: Start: 06-13-2019 Urnls dip stick/tabl et rgnt auto w/o microscopy Brie Moreno Work Phone: Start: 06-13-2019 Assay of amylase Brie Moreno Work Phone: Start: 06-13-2019 Assay of lipase Brie Moreno Work Phone: Start: 06-13-2019 Blood count complete auto&auto difrntl wbc Brie Moreno Work Phone: Start: 06-13-2019 Drug screen class list a Brie Moreno Work Phone: Start: 06-13-2019 Lactate [Moles/Vol] Mar zak Moreno Work Phone: Start: 06-13-2019 Prothrombin time Brie Moreno Work Phone: Start: 06-13-2019 Thromboplastin time partial plasma/whole blood Brie Moreno Work Phone: Start: 05-18-2019 Adult depression scr eening assessment [facility] Start: 08-05-2016 Microscopic observat ion [Identifier] in Cervix by Cyto stain [facility] Start: 04-05-2011 Microscopic observat ion [Identifier] in Cervix by Cyto stain Erin Brush MD Work Phone: Human , f unction (observable entity) [facility] Comment on above: x4 Plan of Treatment Date Care Activity Detail Author Start: 2040 Shingles Vaccine (1 of 2) Shingles Vaccine (1 of 2) [facility]- [place], [place] Start: 12-29-2025 Screening for malignant neoplasm of cervix Pap Smear [facility] Start: 10-31-2024 Screening for malignant neoplasm of cervix Pap Smear [facility] Start: 12-30-2023 Screening for malignant neoplasm of cervix [facility] Start: 10-31-2022 Screening for malignant neoplasm of cervix [facility] Work Phone: Start: 10-05-2022 Influenza vaccination Flu vaccine (#1) [facility] Start: 04-16-2022 History and physical examination, annual for health maintenance Wellness Visit [facility] Start: 02-13-2022 Depression Remission Assessment (PHQ9) Depression Remission Assessment (PHQ9) [facility] Start: 12-29-2021 History and physical examination, annual for health maintenance Wellness Visit [facility] Start: 11-12-2021 End: 11-12-2021 Patient encounter procedure 11/12/2021 Office Visit Primary Care Farhat Vang MD [address] [address] [facility] Start: 11-05-2021 Influenza vaccination [facility] Start: 10-05-2021 Influenza vaccination Flu vaccine (#1) [facility] Start: 06-26-2021 End: 06-26-2021 Nutrition therapy 06/26/2021 Nutrition Nutrition Farhat Vang MD [address] [place] [id number] Angelito Harvey [facility] Start: 05-15-2021 End: 05-15-2021 Nutrition therapy 05/15/2021 [facility] Start: 05-14-2021 End: 05-14-2021 Patient encounter procedure 05/14/2021 Office Visit Primary Care Farhat Vang MD [address] [place] [phone] [facility] Start: 03-17-2021 Depression screening using PHQ-9 (Patient Health Questionnaire 9) score Depression Screening (PHQ9) [facility] Start: 01-15-2021 Depression Remission Assessment (PHQ9) Depression Remission Assessment (PHQ9) [facility] Start: 01-09-2021 Hemoglobin A1c measurement A1C [facility] Start: 12-09-2020 HbA1c (Bld) [Mass fraction] A1C [facility] Start: 12-09-2020 Hemoglobin A1c measurement A1C [facility] Start: 11-05-2020 Influenza vaccination [facility] Start: 10-31-2020 History and physical examination, annual for health maintenance Wellness Visit [facility] Start: 08-28-2020 End: 08-28-2020 Admission to same day surgery center 08/28/2020 Surgery Obstetrics Roslyn Stevenson MD [address] [place] [address] [phone] SECTION [facility] Comment on above: SECTION Start: 08-28-2020 Subsequent hospital visit by physician 08/28/2020 Hospital Encounter Obstetrics Roslyn Stevenson MD [address] [place] [address] [phone] [facility] Start: 08-25-2020 End: 08-25-2020 Office Visit 08/25/2020 Office Visit Endocrinology Zelda Bautista, MARK [address] [place] [address] [phone] [facility] Start: 07-31-2020 End: 07-31-2020 Office Visit 07/31/2020 Office Visit Endocrinology Benito Krueger, [employer] [address] [place] [address] [phone] [facility] Start: 07-29-2020 End: 07-29-2020 Patient encounter procedure 07/29/2020 Routine Obstetrics and Gynecology Regla Dias CNM [address] [place] [id number] [facility] Start: 07-22-2020 End: 07-22-2020 Telemedicine consultation with patient 07/22/2020 Telemedicine Nutrition Lelo Gallegos MD [address] [place] [address] [phone] [facility] Start: 07-17-2020 End: 07-17-2020 Patient encounter procedure 07/17/2020 Routine Obstetrics and Gynecology Yvonne Santos MD [address] [place] [address] [facility] Start: 07-09-2020 End: 07-09-2020 Office Visit 07/09/2020 Office Visit Endocrinology Zelda Bautista, [employer] [address] [place] [address] [phone] [facility] Start: 07-04-2020 End: 07-04-2020 Patient encounter procedure 07/04/2020 Routine Obstetrics and Gynecology Radha Pantoja MD [address] [place] [phone] [facility] Start: 06-26-2020 End: 06-26-2020 Patient encounter procedure 06/26/2020 Office Visit Endocrinology Janie Chen PA-C [address] [place] [address] [phone] [facility] Start: 06-24-2020 End: 06-24-2020 [facility] Start: 06-19-2020 End: 06-19-2020 Routine 06/19/2020 Routine Obstetrics and Gynecology Larissa, Regla Arriaga CNM [address] [place] [phone] [facility] Start: 05-17-2020 Depression screening using PHQ-9 (Patient Health Questionnaire 9) score Depression Screening (PHQ9) [facility] Start: 2020 Screening for malignant neoplasm of cervix [facility] Start: 02-26-2020 End: 02-26-2020 Initial 02/26/2020 Initial Obstetrics and Gynecology Jai Huerta MD [address] [place] [address] [place] [address] [facility] Start: 11-06-2019 Influenza vaccination [place] Start: 11-06-2019 Influenza vaccination given [facility] Start: 08-06-2019 Screening for malignant neoplasm of cervix Pap Smear [facility] Start: 06-20-2019 End: 06-20-2019 Office Visit 06/20/2019 Office Visit Transition of Care Alisa Palenciasca, [employer] CLERK [address] [facility] [address] [place] [address] [phone] [facility] Start: 11-05-2018 Influenza vaccination Flu vaccine (#1) [place] Start: 11-05-2018 Influenza vaccination given Sequential Influenza Vaccine (#1) [facility] Start: 03-21-2015 Cervical cancer screen Cervical cancer screen [place], [place] Start: 03-21-2015 Screening for malignant neoplasm of cervix Cervical cancer screen [place] Start: 04-05-2014 Screening for malignant neoplasm of cervix Pap smear [facility] Start: 2009 DTaP/Tdap/Td vaccine (1 - Tdap) DTaP/Tdap/Td vaccine (1 - Tdap) [place] Start: 2009 Hepatitis B vaccine (1 of 3 - Risk 3-dose series) Hepatitis B vaccine (1 of 3 - Risk 3-dose series) [facility] Work Phone: Start: 2008 Hepatitis C screening Hepatitis C screen [facility] Start: 2006 COVID-19 Vaccine (1) COVID-19 Vaccine (1) [facility] Start: 2005 HIV screen HIV screen [place] Start: 2005 HIV screening HIV screen [facility] Start: 2002 COVID-19 Vaccine (1) COVID-19 Vaccine (1) [facility] Start: 2002 Depression Monitoring Depression Monitoring [facility] Start: 2001 DTaP/Tdap/Td vaccine (1 - Tdap) DTaP/Tdap/Td vaccine (1 - Tdap) [place] Start: 2001 DTaP/Tdap/Td vaccine (5 - Tdap) DTaP/Tdap/Td vaccine (5 - Tdap) [facility] Start: 2000 Albumin DL <= 20 mg/L (U) [Mass/Vol] Urine Microalbumin [facility] Start: 2000 Diabetic foot examination Foot Exam [facility] Start: 2000 Microalbumin measurement, urine, quantitative Urine Microalbumin [facility] Start: 2000 Ophthalmic examination and evaluation Ophthalmology Exam [facility] Start: 1996 Pneumococcal 0-64 years Vaccine (1 of 1 - PPSV23) Pneumococcal 0-64 years Vaccine (1 of 1 - PPSV23) [place] Start: 1996 Pneumococcal Vaccine: Ped or At-Risk (1 of 2 - PPSV23) Pneumococcal Vaccine: Ped or At-Risk (1 of 2 - PPSV23) [facility] Start: 1995 COVID-19 Vaccine (1) COVID-19 Vaccine (1) [facility] Start: 1993 History and physical examination, annual for health maintenance Wellness Visit [facility] Start: 1991 Varicella vaccine (1 of 2 - 2-dose childhood series) Varicella vaccine (1 of 2 - 2-dose childhood series) [facility] Start: 1990 COVID-19 Vaccine (#1) COVID-19 Vaccine (#1) [facility] Start: 1990 Hepatitis B vaccine (1 of 3 - 3-dose series) Hepatitis B vaccine (1 of 3 - 3-dose series) [facility] Start: 1990 Hepatitis C screening Hepatitis C screen [facility] Start: 1990 Tetanus vaccination Tetanus: Every 10yrs [facility] Anti smooth muscle antibody IgA level Anti-Smooth Muscle Antibody Lab Add-On 06/15/2019 1:50 PM EDT [facility] Antimitochondrial antibody titer Antimitochondrial Antibody Lab Add-On 06/15/2019 1:50 PM EDT [facility] End: 11-20-2019 C.trachomatis N.gonorrhoeae DNA, Urine C.trachomatis N.gonorrhoeae DNA, Urine Microbiology STAT One Time for 1 Occurrences starting 11/20/2019 until 11/20/2019 [place] Comment on above: One Time for 1 Occurrences starting 11/05 until 11/20/2019 C.trachomatis N.gonorrhoeae DNA, Urine C.trachomatis N.gonorrhoeae DNA, Urine Microbiology Stat [employer] Label print 11/20/2019 5:55 PM EDT [place] End: 03-26-2020 Covid-19 Ambulatory Covid-19 Ambulatory Lab Routine Once for 1 Occurrences starting 03/26/2020 until 03/26/2020 [place] Comment on above: Once for 1 Occurrences starting 03/26/19 21 until 03/26/2020 Covid-19 Ambulatory Covid-19 Amb ulatory Lab Routine 03/26/2020 8:44 PM EST [place] End: 06-13-2019 Culture, Blood 1 Culture, Blood 1 Microbiology STAT One Time for 1 Occurrences starting 06/13/2019 until 06/13/2019 [place] Comment on above: One Time for 1 Occurrences starting 10/2019 until 06/13/2019 Culture, Blood 1 [place], [place] End: 03-23-2021 Culture, Wound [facility] Work Phone: Comment on above: One Time for 1 Occurrences starting 03/07 until 03/23/2021 Cytomegalovirus DNA assay CMV DN A Detection and Quant, Blood [facility]el [facility] P CR, Quantitative Kirsten-Hazel Virus PCR, Quantitative Lab Routine 06/15/2019 1:50 PM EDT [facility] End: 04-16-2022 Hemoglobin A1c/Hemoglobin.total in Blood Hemoglobin A1c Lab Routine Encounter for general adult medical examination with abnormal findings 1 Occurrences starting 04/16/2021 until 04/16/2022 [facility] Work Phone: Comment on above: 1 Occurrences starting 04/16/2021 until 04/16/2022 Hemoglobin A1c/Hemoglobin.total in Blood Hemoglobin A1c Lab Routine Encounter for general adult medical examination with abnormal findings 04/16/2021 10:58 AM EST [facility] End: 04-16-2022 Hepatitis C antibody measurement Hepatitis C Antibody Lab Routine Encounter for general adult medical examination with abnormal findings 1 Occurrences starting 04/16/2021 until 04/16/2022 [facility] Comment on above: 1 Occurrences starting 04/16/2021 until 04/16/2022 Hepatitis C antibody measurement Hepatitis C Antibody Lab Routine Encounter for general adult medical examination with abnormal findings 04/16/2021 10:58 AM EST [facility] MDI Treatment MDI Treatment Re spiratory Care Routine Every 6hr As Needed until discontinued [facility]: Every 6hr As Needed until discontinued s tarting 03/26/2020 Nuclear Ab IF (S) [Titer] KENIA La b Add-On 06/15/2019 1:50 PM EDT [facility] End: 06-24-2020 Urinalysis, reflex to microscopic Urinalysis, reflex to microscopic Lab STAT One Time for 1 Occurrences starting 06/24/2020 until 06/24/2020 [employer] Work Phone: Comment on above: One Time for 1 Occurrences starting 06/06 until 06/24/2020 End: 05-14-2022 XR Lumbar Spine Complete AP/Lat w Obls XR Lumbar Spine Complete AP/Lat w Obls Imaging Routine Chronic bilateral low back pain without sciatica 1 Occurrences starting 05/14/2021 until 05/14/2022 [employer] Work Phone: Comment on above: 1 Occurrences starting 05/14/2021 until 05/14/2022 Payers Date Payer Category Payer Medicaid [employer] [id number] 2021-Present [phone] [address] [place] [address] [id number]. [id number] 2021 Unknown [id number] 1.2.840.544047.1.13.239.2. 7.3.916477.315 2017 Medicaid [id number] [id number]. 7.3.864386.315 2012 Medicaid [id number] [id number]. 7.3.897971.315 2012 Medicaid [id number] 2008 Private Health Insurance [id number] 1990 Unknown [id number] 2.16.840.1.233014.3.579.2. 173 1990 Unknown [id number] 2.16.840.1.661124.3.579.2. 900 1990 Unknown [id number] 2.16.840.1.439119.3.579.2. 900 1990 Unknown [id number] 2.16.840.1.851989.3.579.2. 900 1990 Unknown [id number] 2.16.840.1.640310.3.579.2. 900 1990 Unknown [id number] 2.16.840.1.614858.3.579.2. 900 1990 Unknown [id number] 2.16.840.1.825396.3.579.2. 900 1990 Unknown [id number] 2.16.840.1.938581.3.579.2. 900 1990 Unknown [id number] 2.16.840.1.363332.3.579.2. 903 1990 Unknown [id number] 2.16.840.1.886097.3.579.2. 903 1990 Unknown [id number] 2.16.840.1.066714.3.579.2. 903 1990 Unknown [id number] 2.16.840.1.992234.3.579.2. 903 1990 Unknown [id number] 2.16.840.1.242246.3.579.2. 903 1990 Unknown [id number] 2.16.840.1.116224.3.579.2. 903 1990 Unknown [id number] 2.16.840.1.038928.3.579.2. 903 1990 Unknown [id number] 2.16.840.1.614665.3.579.2. 903 1990 Unknown [id number] 2.16.840.1.540529.3.579.2. 903 1990 Unknown [id number] 2.16.840.1.583423.3.579.2. 903 1990 Unknown [id number] 2.16.840.1.260536.3.579.2. 903 1990 Unknown [id number] 2.16.840.1.533216.3.579.2. 903 1990 Unknown [id number] 2.16.840.1.944282.3.579.2. 903 1990 Unknown [id number] 2.16.840.1.280493.3.579.2. 903 1990 Unknown [id number] 2.16.840.1.105679.3.579.2. 903 1990 Unknown [id number] 2.16.840.1.192337.3.579.2. 593 1990 Unknown [id number] 2.16.840.1.468740.3.579.2. 593 1990 Unknown [id number] 2.16.840.1.913857.3.579.2. 593 1990 Unknown [id number] 2.16.840.1.957164.3.579.2. 593 1990 Unknown [id number] 2.16.840.1.055649.3.579.2. 174 1990 Unknown [id number] 2.16.840.1.368182.3.579.2. 174 1990 Unknown [id number] 2.16.840.1.893230.3.579.2. 174 1990 Unknown [id number] 2.16.840.1.789176.3.579.2. 174 1990 Unknown [id number] 2.16.840.1.609007.3.579.2. 174 1990 Unknown [id number] 2.16.840.1.488830.3.579.2. 174 1990 Unknown [id number] 2.16.840.1.503371.3.579.2. 174 1990 Unknown [id number] 2.16.840.1.469139.3.579.2. 727 1990 Unknown [id number] 2.16.840.1.498329.3.579.2. 727 1990 Unknown [id number] 2.16.840.1.511659.3.579.2. 727 1959 Unknown [id number] Social History Date Type Detail Facility Start: 04-28-2019 End: 11-03-2019 Tobacco smoking status NHIS Current every day smoker [place] End: 02-15-2020 History of tobacco use Cigarette Smoker [place] Start: 04-28-2019 End: 09-04-2022 Cigarettes smoked current (pack per day) - Reported ALEXANDRA PANIAGUA [facility] Start: 04-28-2019 Alcohol intake Current drinke r of alcohol (finding) [place], [place] Start: 1990 Sex Assigned At Not on file [place] Start: 06-13-2019 End: 05-10-2023 Alcohol intake Ex-drinker (finding) [facility] Y Exposure to SARS-CoV -2 (event) Unable to assess [place] Start: 05-18-2019 End: 04-16-2021 History SDOH Alcohol Frequency 3 [facility] Start: 05-18-2019 End: 07-16-2020 History SDOH Alcohol Std Drinks 5 [facility] Start: 05-04-2021 End: 05-19-2022 Exposure to SARS-CoV-2 (event) Not sure [facility] Start: 11-20-2019 End: 04-01-2020 Tobacco use and exposure Never used [place], [place] Start: 06-09-2020 End: 05-11-2023 Tobacco smoking status NHIS Former smoker [facility] End: 02-15-2020 History of tobacco use Current smoker [facility] Start: 12-09-2019 [facility] Start: 04-16-2021 History SDOH Social Connections Get Together 4 [facility] Start: 04-16-2021 History SDOH Food Worry 1 [facility] Start: 09-04-2022 Sex Assigned At Female F [facility] Start: 09-04-2022 History SDOH Alcohol Frequency 2 [employer] How often to you hav e a drink containing alcohol? Monthly or less [employer] Average Number of Drinks Not on file [employer] Medical Equipment Procedure Code Equipment Code Equipment Origin al Text Equipment Identifier Dates Use to check BG QID Dx O24.14 . [id number] Start: 06-09-2020 Use as instructe d to check BG QID Dx O24.14 . [id number] Start: 06-09-2020 End: 06-11-2020 use to test BLOO D SUGAR FOUR TIMES DAILY [id number] Start: 06-09-2020 Goals Date Patient Goal Desired Activity /State Functional Status Date Assessment Result Facility 05-13-2023 Functional Status N/A [facility] 05-11-2023 Functional Status N/A [facility] 06-29-2022 Functional Status N/A [facility] Clinical Notes 06-09-2020 to 05-13-2023 Note Date & Type Note Facility 05-13-2023 Hospital Discharg e instructions Patient Education 05/13/2023 13:02:19 Dental Abscess Dental Abscess A dental abscess is an infection around a tooth that may involve pain, swelling, and a collection of pus, as well as other symptoms. Treatment is important to help with symptoms and to prevent the infection from spreading. The general types of dental abscesses are: Pulpal abscess. This abscess may form from the inner part of the tooth (pulp). Periodontal abscess. This abscess may form from the gum. What are the causes? This condition is caused by a bacterial infection in or around the tooth. It may result from: Severe tooth decay (cavities). Trauma to the tooth, such as a broken or chipped tooth. What increases the risk? This condition is more likely to develop in males. It is also more likely to develop in people who: Have cavities. Have severe gum disease. Eat sugary snacks between meals. Use tobacco products. Have diabetes. Have a weakened disease-fighting system (immune system). Do not brush and care for their teeth regularly. What are the signs or symptoms? Mild symptoms of this condition include: Tenderness. Bad breath. Fever. A bitter taste in the mouth. Pain in and around the infected tooth. Moderate symptoms of this condition include: Swollen neck glands. Chills. Pus drainage. Swelling and redness around the infected tooth, in the mouth, or in the face. Severe pain in and around the infected tooth. Severe symptoms of this condition include: Difficulty swallowing. Difficulty opening the mouth. Nausea. Vomiting. How is this diagnosed? This condition is diagnosed based on: Your symptoms and your medical and dental history. An examination of the infected tooth. During the exam, your dental care provider may tap on the infected tooth. You may also need to have X-rays taken of the affected area. How is this treated? This condition is treated by getting rid of the infection. This may be done with: Antibiotic medicines. These may be used in certain situations. Antibacterial mouth rinse. Incision and drainage. This procedure is done by making an incision in the abscess to drain out the pus. Removing pus is the first priority in treating an abscess. A root canal. This may be performed to save the tooth. Your dental care provider accesses the visible part of your tooth (crown) with a drill and removes any infected pulp. Then the space is filled and sealed off. Tooth extraction. The tooth is pulled out if it cannot be saved by other treatment. You may also receive treatment for pain, such as: Acetaminophen or NSAIDs. Gels that contain a numbing medicine. An injection to block the pain near your nerve. Follow these instructions at home: Medicines Take ifyf-jhg-mrqrszs and prescription medicines only as told by your dental care provider. If you were prescribed an antibiotic, take it as told by your dental care provider. Do not stop taking the antibiotic even if you start to feel better. If you were prescribed a gel that contains a numbing medicine, use it exactly as told in the directions. Do not use these gels for children who are younger than 2 years of age. Use an antibacterial mouth rinse as told by your dental care provider. General instructions Gargle with a mixture of salt and water 3 4 times a day or as needed. To make salt water, completely dissolve 1 tsp (3 6 g) of salt in 1 cup (237 mL) of warm water. Eat a soft diet while your abscess is healing. Drink enough fluid to keep your urine pale yellow. Do not apply heat to the outside of your mouth. Do not use any products that contain nicotine or tobacco. These products include cigarettes, chewing tobacco, and vaping devices, such as e-cigarettes. If you need help quitting, ask your dental care provider. Keep all follow-up visits. This is important. How is this prevented? Excellent dental home care, which includes brushing your teeth every morning and night with fluoride toothpaste. Floss one time each day. Get regularly scheduled dental cleanings. Consider having a dental sealant applied on teeth that have deep grooves to prevent cavities. Drink fluoridated water regularly. This includes most tap water. Check the label on bottled water to see if it contains fluoride. Reduce or eliminate sugary drinks. Eat healthy meals and snacks. Wear a mouth guard or face shield to protect your teeth while playing sports. Contact a health care provider if: Your pain is worse and is not helped by medicine. You have swelling. You see pus around the tooth. You have a fever or chills. Get help right away if: Your symptoms suddenly get worse. You have a very bad headache. You have problems breathing or swallowing. You have trouble opening your mouth. You have swelling in your neck or around your eye. These symptoms may represent a serious problem that is an emergency. Do not wait to see if the symptoms will go away. Get medical help right away. Call your local emergency services (911 in the [place] Do not drive yourself to the hospital. Summary A dental abscess is a collection of pus in or around a tooth that results from an infection. A dental abscess may result from severe tooth decay, trauma to the tooth, or severe gum disease around a tooth. Symptoms include severe pain, swelling, redness, and drainage of pus in and around the infected tooth. The first priority in treating a dental abscess is to drain out the pus. Treatment may also involve removing damage inside the tooth (root canal) or extracting the tooth. This information is not intended to replace advice given to you by your health care provider. Make sure you discuss any questions you have with your health care provider. Document Revised: 04/30/2021 Document Reviewed: 04/30/2021 Elsevier Patient Education 2022 [employer]. Follow Up Care 05/13/2023 11:20:07 With:[employer] Address: [place] [id number]- [employer] (1) When:05/16/2023 12:45:32 Comments:Dentistry follow-up [facility] 05-12-2023 Hospital Discharg e instructions Patient Education 05/11/2023 23:33:09 Dental Pain, Xbaq-iw-Zpyn Dental Pain Dental pain is often a sign that something is wrong with your teeth or gums. You can also have pain after a dental treatment. If you have dental pain, it is important to contact your dentist, especially if the cause of the pain is not known. Dental pain may hurt a lot or a little and can be caused by many things, including: Tooth decay (cavities or caries). Infection. The inner part of the tooth being filled with pus (an abscess). Injury. A crack in the tooth. Gums that move back and expose the root of a tooth. Gum disease. Abnormal grinding or clenching of teeth. Not taking good care of your teeth. Sometimes the cause of pain is not known. You may have pain all the time, or it may happen only when you are: Chewing. Exposed to hot or cold temperatures. Eating or drinking foods or drinks that have a lot of sugar in them, such as soda or candy. Follow these instructions at home: Medicines Take osny-ugt-ynxotjg and prescription medicines only as told by your dentist. If you were prescribed an antibiotic medicine, take it as told by your dentist. Do not stop taking it even if you start to feel better. Eating and drinking Do not eat foods or drinks that cause you pain. These include: Very hot or very cold foods or drinks. Sweet or sugary foods or drinks. Managing pain and swelling If told, put ice on the painful area of your face. To do this: ?Put ice in a plastic bag. ?Place a towel between your skin and the bag. ?Leave the ice on for 20 minutes, 2 3 times a day. ?Take off the ice if your skin turns bright red. This is very important. If you cannot feel pain, heat, or cold, you have a greater risk of damage to the area. Brushing your teeth [place] your teeth twice a day using a fluoride toothpaste. Use a toothpaste made for sensitive teeth as told by your dentist. Use a soft toothbrush. General instructions Floss your teeth at least once a day. Do not put heat on the outside of your face. Rinse your mouth often with salt water. To make salt water, dissolve 1 tsp (3 6 g) of salt in 1 cup (237 mL) of warm water. Watch your dental pain. Let your dentist know if there are any changes. Keep all follow-up visits. Contact a dentist if: You have dental pain and you do not know why. Medicine does not help your pain. Your symptoms get worse. You have new symptoms. Get help right away if: You cannot open your mouth. You are having trouble breathing or swallowing. You have a fever. Your face, neck, or jaw is swollen. These symptoms may be an emergency. Get help right away. Call your local emergency services (911 in the [place] Do not wait to see if the symptoms will go away. Do not drive yourself to the hospital. Summary Dental pain may be caused by many things, including tooth decay, injury, or infection. In some cases, the cause is not known. Dental pain may hurt a lot or very little. You may have pain all the time, or you may have it only when you eat or drink. Take jihc-xbt-lmgrjka and prescription medicines only as told by your dentist. Watch your dental pain for any changes. Let your dentist know if symptoms get worse. This information is not intended to replace advice given to you by your health care provider. Make sure you discuss any questions you have with your health care provider. Document Revised: 11/26/2020 Document Reviewed: 11/26/2020 Else[employer] Patient Education 2022 [employer] Follow Up Care 05/11/2023 21:26:40 With:Linda Sheppard DO Address: [address] [place] [address] Anaya, Amelie , [facility] [address] [place] [address]- When:05/14/2023 [facility] 05-11-2023 Evaluation + Plan note Extrac roxann from: Title:ED Note Author:Selena HALL, Violet Lilly ate:05/11/23 1. Pain, dental (K08.89: Oth er specified disorders of teeth and supporting structures) Ordered: amoxicillin-clavulanate, = 1 tab(s), Oral, q12hr, X 7 day(s), # 14 tab(s), Refills(s) 0, Pharmacy: [facility] #[facility], 160, cm, 05/11/23 21:53:00 EST, Height/Length Dosing, 110, kg, 05/11/23 21:53:00 EST, Weight Dosing chlorhexidine topical, 0.018 gm, 15 mL, Oral, BID, 480 mL, Refill(s) 0, (swish and spit; do not swallow), [facility] #[facility], 160, cm, 05/11/23 21:53:00 EST, Height/Length Dosing, 110, kg, 05/11/23 21:53:00 EST, Weight Dosing 2. Infected dental caries (K02.9: Dental caries, unspecified) Ordered: amoxicillin-clavulanate, = 1 tab(s), Oral, q12hr, X 7 day(s), # 14 tab(s), Refills(s) 0, Pharmacy: [facility] #16, 160, cm, 05/11/23 21:53:00 EST, Height/Length Dosing, 110, kg, 05/11/23 21:53:00 EST, Weight Dosing chlorhexidine topical, 0.018 gm, 15 mL, Oral, BID, 480 mL, Refill(s) 0, (swish and spit; do not swallow), [facility] #16, 160, cm, 05/11/23 21:53:00 EST, Height/Length Dosing, 110, kg, 05/11/23 21:53:00 EST, Weight Dosing 3. First trimester (Z34.91: Encounter for supervision of normal , unspecified, first trimester) Periapical abscess without sinus (K04.7: Periapical abscess without sinus) Orders: ketorolac, 30 mg = 1 mL, Injection, IntraMuscular, Once, Stop date 05/11/23 23:31:00 EST, STAT, Start date 05/11/23 23:31:00 EST, 05/11/23 23:31:00 EST [facility]03-05-2024 Hospital Discharge instructions* Discharge Instructions* Chet Berumen DO - 05/10/2023 11:50 AM EST Use amoxicillin as prescribed. Use Tylenol as needed for pain. Follow-up with dentist as soon as possible. * Attachments The following attachments cannot be sent through Care Everywhere. * Tooth Decay (Lithuanian) * Tooth and Gum Pain (Lithuanian) [facility] History of Present illness Narrative* Angelito Harvey RD - 05/15/2021 8:39 AM EST Patient Name: Tia Levin Patient : 1990 Primary Care Provider: Farhat Vang MD Referred By: Farhat Vang* Referral Diagnosis: Obesity Start Time: 8:40 AM End Time: 9:30 AM Nutrition Diagnosis: Overweight/Obesity related to excessive energy intake as evidenced by BMI> 25 and diet history. Nutrition Goals: 1. I will exercise 2-3 days/week for at least 20 minutes 2. I will incorporate a serving of vegetables with lunch and dinner 3. I will swap unhealthy snacks for vegetables Follow Up: Follow up appointment scheduled by patient- 06/26/21 at 8:30 AM Assessment: Pt present today with sister for weight management. Pt reported that she previously metwith an RDN in June 2020 for nutrition education when she had GDM. She reported that she has gained ~100# over the past year. Some of the weight was due to , but she feels that she has continued to gain weight since she had her baby eight months ago. Pt admits that she is over-consuming calories each day by consuming sugar-sweetened beverages and large portions at meals. Diet recall also indicated that she is consuming large portions when she has sweets or donuts. Pt is eating 3 meals/day with 1 snack occasionally. Pt incorporates protein and starches at most meals, but reported that she needs to incorporate more fruits, vegetables, and low fat dairy. Primary support - boyfriend and sister Cultural or Religous Dietary Needs - none identified Pertinent Food/Drug Interactions - Avoid alcohol with Baclofen, Paxil, Lexapro, and QUEtiapine; Administer ketorolac tablet with food or milk to decrease gastrointestinal distress. Height: 63 Current Weight: 253# BMI: 45 kg/m2 BMI Classification: Obese Class III (>40.0) Weight History: Pt reported that she has gained over 100# in the past year (part of the weight gainwas due to ) Wt Readings from Last 5 Encounters: 05/14/21 115.1 kg (253 lb 12.8 oz) 04/16/21 113.8 kg (250 lb 14.4 oz) 02/16/21 109.3 kg (241 lb) 02/02/21 110.6 kg (243 lb 12.8 oz) 01/20/21 110.2 kg (243 lb) Past Medical History: Past Medical History: Diagnosis Date Anxiety Bipolar 1 disorder, manic, mild (HCC) 03/2021 Depression Infectious viral hepatitis hep c PTSD (post-traumatic stress disorder) PTSD (post-traumatic stress disorder) 2004 History From: History obtained from patient and chart review. Current/Pertinent Medications & Supplements: Reviewed Current Outpatient Medications Ordered in [facility] Medication Sig Dispense Refill baclofen (LIORESAL) 10 MG tablet Take 10 mg by mouth 3 (three) times a day as needed . escitalopram oxalate (LEXAPRO) 10 MG tablet TAKE 1/2 (ONE-HALF) OF A TABLET BY MOUTH daily for 7 (SEVEN) days then take 1 (ONE) tablet by mouth daily ketorolac (TORADOL) 10 mg tablet Take 10 mg by mouth every 8 (eight) hours as needed . PARoxetine (PAXIL) 20 MG tablet TAKE 1/2 (ONE-HALF) OF A TABLET BY MOUTH DAILY FOR 7 DAYS THEN TAKE1 TABLET BY MOUTH DAILY vitamin with Ca-Iron-FA 27-1 mg Tab Take 1 (one) tablet by mouth daily . (Patient not taking: No sig reported) 90 tablet 3 QUEtiapine (SEROQUEL) 50 MG tablet Take 50 mg by mouth nightly . Vraylar 1.5 mg capsule Take 1.5 mg by mouth daily . No current [facility]-ordered facility-administered medications on file. Lab Results Component Value Date HGBA1C 5.5 04/16/2021 HGBA1C 5.2 07/09/2020 HGBA1C 5.6 06/09/2020 Lab Results Component Value Date CHOL 195 04/16/2021 Lab Results Component Value Date TRIG 151 (H) 04/16/2021 Lab Results Component Value Date HDL 56 04/16/2021 No results found for: LDL Nutrition Focused Physical Findings: Dentition: no problems noted GI/food intolerances: none Food Allergies: none Current Activity Level: Lightly Active- with ADL's Diet History/Recall: Food Prep/Grocery Shopping - self and boyfriend Breakfast - 10 AM- eggs (over easy or scrambled), rascon, toast, and hash browns Lunch - 1-2 PM- sandwich (deli meat or grilled cheese); salads with peppers, cucumbers, cheese, andFrench dressing; spaghetti o's or canned soup; spicy breaded chicken sandwich (at home) Dinner - 6-7 PM- crock pot meals- goulash; Nepali chicken; spicy rice with chicken and beans; fajitas; burritos; tacos; pizza (frozen); pork chops with vegetable and potato or rice Snacks - powdered donuts (can eat the whole bag in one sitting); apples, bananas, yogurt and granola Beverages - Red bull (1 can a few times/day), mt dew (1-2 cans/day), body armor (1-2 8-oz bottles/day), coffee with cream, sugar, and espresso (2-3 cups in the morning/2-3 cups in the evening); Water(1-2 16-oz bottles/day) Meals Away From Home - 3 meals/week (usually fast food) Alcohol Use - none Food Insecurity Within the past 12 months, we worried whether our food would run out before we got money to buy more [Multiple Answer] Often True [3.00] Sometimes True [2.00] Rarely True [1.00] Never True [0.00] Within the past 12 months, the food we bought just didn't last and we didn't have the money to get more. [Multiple Answer] Often true [3.00] Sometimes true [2.00] Rarely true [1.00] Never true [0.00] Intervention/Education Provided: Reviewed the plate method to promote a balance of macronutrients at meals and snacks. Recommended slow, gradual weight loss of 1-2#/week. Recommended using MyFitnessPal to track daily calorie intake.Reviewed weight loss tips. Reviewed sample meal plans to meet calorie goals/day. Estimated Nutritional Needs: Calorie Needs: 5540-6131 kcals/day (MSJ x 1.3AF -500-1000 to promote gradual weight loss) Patient/Family Education: Learner: family and patient Readiness: action - ready to set action plan and implement goals Barriers to Learning: none Method: explanation and handout Response: verbalizes understanding Expected Adherence: good Education Materials Provided: Healthy Meal Planning handout ([facility]), Goal Sheet, 1,119-Qdceeha7-Phy Menus (NCM), 1,800-Calorie 5-Day Menus (NCM), Weight Loss Tips (NCM) Monitoring/Evaluation: Lab results, weight, food recall, meal planning, goal achievement, physical activity, medication management. This documentation has been sent to the referring healthcare provider. Angelito Harvey RDN, Personal Office documented in this [id number] History of Present illness Narrative* Farhat Vang MD - 05/14/2021 10:43 AM EST Subjective Patient ID: Tia Levin is a 31 y.o. female. Very nice 31 nasal patient with past medical history of depression in treatment with psychiatry history of opiate abuse in the past has presented for follow-up. She is concerned because she was witnessed by her boyfriend stopping breathing at bedtime. She is morbidly obese trying to lose weight. The patient also complains of significant low back pain that has been going on for more than 1 year. She would like to be checked for her low back pain. Recent blood work was within the normal limits except for a positive hepatitis C antibody. Back Pain This is a chronic problem. The current episode started more than 1 year ago. The problem occurs intermittently. The problem has been waxing and waning since onset. The pain is present in the lumbar spine. The quality of the pain is described as aching. The pain does not radiate. The pain is severe.The symptoms are aggravated by bending and position. Pertinent negatives include no abdominal pain,bladder incontinence, bowel incontinence, chest pain, dysuria, fever, headaches, leg pain, numbness, paresis, paresthesias, pelvic pain, perianal numbness, tingling, weakness or weight loss. Risk factors include obesity. She has tried nothing for the symptoms. Depression Visit Type: follow-up Patient presents with the following symptoms: depressed mood, insomnia and nervousness/anxiety. Patient is not experiencing: anhedonia, chest pain, choking sensation, compulsions, confusion, decreased concentration, dizziness, dry mouth, excessive worry, fatigue, feelings of hopelessness, feelings of worthlessness, hypersomnia, hyperventilation, irritability, malaise, memory impairment, muscle tension, nausea, obsessions, palpitations, panic, psychomotor agitation, psychomotor retardation, restlessness, shortness of breath, suicidal ideas, suicidal planning, thoughts of , weight gainand weight loss. Frequency of symptoms: most days Severity: causing significant distress Sleep quality: poor Positive C hepatitis antibody This is a recurring problem that started more than a month ago. Patient does not have nausea does not have abdominal pain today does not have jaundice. She gives me a personal history of positive forC hepatitis that she has been treated for and told that she no longer has a C hepatitis virus. Patient was referred to religious ritual slaughterer and the recommendation was made for a quantitative C hepatitis virus measurement. Liver function tests were normal April 16, 2021 The following portions of the patient's history were reviewed and updated as appropriate: allergies, current medications, past family history, past medical history, past social history, past surgicalhistory and problem list. Review of Systems Constitutional: Negative. Negative for fever, irritability, weight gain and weight loss. HENT: Negative. Eyes: Negative. Respiratory: Negative. Negative for choking and shortness of breath. Cardiovascular: Negative. Negative for chest pain and palpitations. Gastrointestinal: Negative. Negative for abdominal pain and bowel incontinence. Endocrine: Negative. Genitourinary: Negative. Negative for bladder incontinence, dysuria and pelvic pain. Musculoskeletal: Positive for back pain. Skin: Negative. Allergic/Immunologic: Negative. Neurological: Negative. Negative for tingling, weakness, numbness, headaches and paresthesias. Hematological: Negative. Psychiatric/Behavioral: Positive for dysphoric mood and sleep disturbance. Negative for agitation, behavioral problems, confusion, decreased concentration, hallucinations, self-injury and suicidal ideas. The patient is nervous/anxious and has insomnia. The patient is not hyperactive. Objective Physical Exam Vitals and nursing note reviewed. Constitutional: Appearance: Normal appearance. Cardiovascular: Rate and Rhythm: Normal rate. Pulmonary: Effort: Pulmonary effort is normal. Neurological: General: No focal deficit present. Mental Status: She is alert and oriented to person, place, and time. Assessment/Plan: Diagnoses and all orders for this visit: Anxiety and depression We will up with and per psychiatry for all neuropsychiatric medication At risk for obstructive sleep apnea - Ambulatory referral to Sleep Medicine (Regional Locations); Future Chronic bilateral low back pain without sciatica - XR Lumbar Spine Complete AP/Lat w Obls; Future - Ambulatory Ref to [facility] (PT/OT/ST); Future - Ambulatory referral to Neurosurgery; Future Losing weight with diet will help call with any new symptoms or worsening of current symptoms Hepatitis C antibody positive in blood Check quantitation hepatitis C Morbid obesity with body mass index (BMI) of 40.0 or higher (HCC) Follow-up with and per dietitian to help lose weight with diet History of opioid abuse (HCC) Farhat Vang MD Return in about 6 months (around 11/14/2021), or if symptoms worsen or fail to improve, for Follow Up. documented in this [id number] History of Present illness Narrative* Farhat Vang MD - 04/16/2021 10:27 AM EST OUTPATIENT WELL WOMAN PROGRESS NOTE Subjective: Tia Levin is a very nice 31 y.o. female and is here to establish and is due for a preventative care visit. Patient's main concern is significant recent weight gain after giving to her fourth baby a few months ago. Patient has gained 50 pounds recently. History of anxiety and bipolar depression following up with psychiatrist on Lexapro on Seroquel and on Vraylar because of history of opiate use. Patient has a history of suicidal attempt in 2019. She is stable with current medications that are prescribed by her insurance customer service specialist. She has 4 children at home she has a supportive . Complains of memory loss from around the time when she attempted to commit suicide Health Maintenance Due Topic Date Due Tetanus: Every 10yrs Never done COVID-19 Vaccine (1) Never done Pneumococcal Vaccine: Ped or At-Risk (1 of 2 - PPSV23) Never done Sequential Influenza Vaccine (1) Never done Domestic violence: No Depression Screen: Bipolar depression Diet/Exercise: No Last eye exam: Unknown Last dental visit: Unknown The following portions of the patient's history were reviewed and updated as appropriate: allergies, current medications, past family history, past medical history, past social history, past surgicalhistory and problem list. Past Medical History: Diagnosis Date Anxiety Bipolar 1 disorder, manic, mild (HCC) 03/2021 Depression Infectious viral hepatitis hep c PTSD (post-traumatic stress disorder) PTSD (post-traumatic stress disorder) 2004 Past Surgical History: Procedure Laterality Date SECTION N/A 08/28/2020 Procedure: SECTION; Surgeon: Roslyn Stevenson MD; Location: [facility] OR; Service: OBGYN SECTION, LOW TRANSVERSE 3 Social History Tobacco Use Smoking status: Former Smoker Years: 10.00 Types: Cigarettes Quit date: 02/15/2020 Years since quittin.1 Smokeless tobacco: Never Used Vaping Use Vaping Use: Never used Substance Use Topics Alcohol use: Not Currently Alcohol/week: 10.0 standard drinks Types: 10 Shots of liquor per week Drug use: Not Currently Types: Crack cocaine, Heroin, IV Comment: Last use 04/28/2019 Family History Problem Relation Age of Onset Diabetes Father Throat cancer Maternal Grandmother Breast cancer Maternal Aunt No Known Allergies Review of Systems: Review of Systems Constitutional: Positive for unexpected weight change. Negative for activity change, appetite change, chills, diaphoresis, fatigue and fever. HENT: Negative. Eyes: Negative. Respiratory: Negative. Cardiovascular: Negative. Gastrointestinal: Negative. Endocrine: Negative. Genitourinary: Negative. Musculoskeletal: Negative. Skin: Negative. Allergic/Immunologic: Negative. Neurological: Negative. Hematological: Negative. Psychiatric/Behavioral: Positive for dysphoric mood and sleep disturbance. Negative for agitation, confusion, decreased concentration, hallucinations, self-injury and suicidal ideas. The patient is nervous/anxious. The patient is not hyperactive. Objective: BP 122/78 (BP Location: Left arm, Patient Position: Sitting, BP Cuff Size: Adult) Pulse (!) 100 Temp 98 F (36.7 C) (Oral) Resp 18 Ht 5' 3 Wt 113.8 kg (250 lb 14.4 oz) SpO2 96% BMI 44.44 kg/m Physical Exam Vitals and nursing note reviewed. Constitutional: Appearance: Normal appearance. She is obese. Cardiovascular: Rate and Rhythm: Normal rate and regular rhythm. Heart sounds: Normal heart sounds. No murmur heard. No friction rub. No gallop. Pulmonary: Effort: Pulmonary effort is normal. No respiratory distress. Breath sounds: Normal breath sounds. No stridor. No wheezing, rhonchi or rales. Chest: Chest wall: No tenderness. Abdominal: General: There is distension. Skin: Coloration: Skin is not pale. Neurological: General: No focal deficit present. Mental Status: She is alert and oriented to person, place, and time. Psychiatric: Attention and Perception: Attention and perception normal. Mood and Affect: Mood is not anxious or depressed. Speech: Speech normal. Behavior: Behavior normal. Thought Content: Thought content is not delusional. Thought content does not include suicidal ideation. Thought content does not include suicidal plan. Assessment: @DIAGN@ Plan: Problem List Items Addressed This Visit Other Encounter for general adult medical examination with abnormal findings - Primary Relevant Orders CBC Comprehensive Metabolic Panel Hemoglobin A1c Hepatitis C Antibody Lipid Panel History of opioid abuse (HCC) Other Visit Diagnoses Anxiety and depression Relevant Medications Vraylar 1.5 mg capsule escitalopram oxalate (LEXAPRO) 10 MG tablet QUEtiapine (SEROQUEL) 50 MG tablet Other Relevant Orders TSH Morbid obesity with body mass index (BMI) of 40.0 or higher (HCC) Relevant Orders Ambulatory referral to Nutrition Services Tia was seen today for establish care. Diagnoses and all orders for this visit: Encounter for general adult medical examination with abnormal findings - CBC; Future - Comprehensive Metabolic Panel; Future - Hemoglobin A1c; Future - Hepatitis C Antibody; Future - Lipid Panel; Future Anxiety and depression - TSH; Future Follow-up with and per psychiatrist Lexapro Seroquel and Vraylar will be prescribed and managed by psychiatrist patient understands theplan. I explained the patient as far as I am concerned it is expected to have a transient memory loss around the traumatic experiences. Patient can currently function well taking care of her children and herself at home History of opioid abuse (HCC) Morbid obesity with body mass index (BMI) of 40.0 or higher (HCC) - Ambulatory referral to Nutrition Services; Future General Patient Counseling Given: --Nutrition: Stressed importance of moderation in sodium/caffeine intake, saturated fat and cholesterol, caloric balance, sufficient intake of fresh fruits, vegetables, fiber, calcium, iron, and 1 mgof folate supplement per day (for females capable of ). --Discussed the daily use of baby aspirin. --Exercise: Stressed the importance of regular exercise. --Substance Abuse: Discussed cessation/primary prevention of tobacco, alcohol, or other drug use --Sexuality: Discussed sexually transmitted diseases, partner selection, use of condoms, avoidance of unintended and contraceptive alternatives. --Dental health: Discussed importance of regular dental visits. --Immunizations reviewed. --Discussed benefits of screening mammograms, pap smears, and colonoscopy. USPSTF recommendations: Farhat Vang MD Return in about 1 month (around 05/14/2021), or if symptoms worsen or fail to improve, for Follow Upblood work thyroid sugars weight. Depression Screening 04/16/2021 Little interest or pleasure in doing things 0 Feeling down, depressed, or hopeless 1 PHQ-2 Total Score 1 Trouble falling or staying asleep, or sleeping too much 2 Feeling tired or having little energy 1 Poor appetite or overeating 1 Feeling bad about yourself - or that you are a failure or have let yourself or your family down 1 Trouble concentrating on things, such as reading the newspaper or watching television 1 Moving or speaking so slowly that other people could have noticed. Or the opposite - being so fidgety or restless that you have been moving around a lot more than usual 0 Thoughts that you would be better off , or of hurting yourself in some way 0 PHQ-9 Total Score 7 If you checked off any problems, how difficult have these problems made it for you to do your work,take care of things at home, or get along with other people? Not difficult at all documented in this [id number] History of Present illness Narrative* Holland Ann MD - 01/15/2021 11:22 AM EST Tia Levin 30 y.o. 1990 female Reason for Consult: Hemorrhoid HPI: 30-year-old female with history of depression hepatitis C was referred to me for evaluation of hemorrhoid patient says for 2 years she has hemorrhoid no bleeding but sometimes painful bowels are regular no family history of any colon cancer. Past Medical History: Past Medical History: Diagnosis Date Anxiety Depression Infectious viral hepatitis hep c PTSD (post-traumatic stress disorder) Surgical History & Procedures: Past Surgical History: Procedure Laterality Date SECTION N/A 08/28/2020 Procedure: SECTION; Surgeon: Roslyn Stevenson MD; Location: [facility]; Service: OBGYN SECTION, LOW TRANSVERSE 3 Social History: Social History Socioeconomic History Marital status: Single Spouse name: Not on file Number of children: Not on file Years of education: Not on file Highest education level: Not on file Occupational History Not on file Tobacco Use Smoking status: Former Smoker Years: 10.00 Types: Cigarettes Quit date: 02/15/2020 Years since quittin.9 Smokeless tobacco: Never Used Vaping Use Vaping Use: Never used Substance and Sexual Activity Alcohol use: Not Currently Alcohol/week: 10.0 standard drinks Types: 10 Shots of liquor per week Drug use: Not Currently Types: Crack cocaine, Heroin, IV Comment: Last use 04/28/2019 Sexual activity: Yes Partners: Male, Female control/protection: None Other Topics Concern Not on file Social History Narrative Not on file Social Determinants of Health Financial Resource Strain: Difficulty of Paying Living Expenses: Not on file Food Insecurity: Worried About Running Out of Food in the Last Year: Not on file Ran Out of Food in the Last Year: Not on file Transportation Needs: Lack of Transportation (Medical): Not on file Lack of Transportation (Non-Medical): Not on file Physical Activity: Days of Exercise per Week: Not on file Minutes of Exercise per Session: Not on file Stress: Feeling of Stress : Not on file Social Connections: Frequency of Communication with Friends and Family: Not on file Frequency of Social Gatherings with Friends and Family: Not on file Attends Church Services: Not on file Active Member of Clubs or Organizations: Not on file Attends Club or Organization Meetings: Not on file Marital Status: Not on file Housing Stability: Unable to Pay for Housing in the Last Year: Not on file Number of Places Lived in the Last Year: Not on file Unstable Housing in the Last Year: Not on file Current Medications: Current Outpatient Medications Medication Sig Dispense Refill norgestrel-ethinyl estradioL (LO/OVRAL) 0.3-30 mg-mcg per tablet Take 1 (one) tablet by mouth daily. 30 tablet 11 No current facility-administered medications for this visit. Review of Systems Constitutional: Negative for appetite change and unexpected weight change. HENT: Negative for voice change. Respiratory: Negative for cough, choking and shortness of breath. Cardiovascular: Negative for chest pain and leg swelling. Gastrointestinal: Negative for abdominal pain, anal bleeding, blood in stool, constipation, diarrhea, nausea, rectal pain and vomiting. Genitourinary: Negative for hematuria. Musculoskeletal: Negative for arthralgias and joint swelling. Skin: Negative for pallor. Neurological: Negative for dizziness, tremors and weakness. Hematological: Negative for adenopathy. Does not bruise/bleed easily. Psychiatric/Behavioral: Negative for confusion. Physical Exam Constitutional: Appearance: Normal appearance. Eyes: Pupils: Pupils are equal, round, and reactive to light. Cardiovascular: Pulses: Normal pulses. Heart sounds: Normal heart sounds. Pulmonary: Breath sounds: Normal breath sounds. Abdominal: General: Bowel sounds are normal. Palpations: Abdomen is soft. There is no mass. Tenderness: There is no abdominal tenderness. Skin: Coloration: Skin is not jaundiced. Neurological: General: No focal deficit present. Mental Status: She is alert and oriented to person, place, and time. Psychiatric: Behavior: Behavior normal. Rectal exam revealed small external hemorrhoid nontender. Lab Draw on 12/29/2020 Component Date Value Ref Range Status Hepatitis B Surface Ag 12/29/2020 Negative Negative Final Hepatitis C Ab 12/29/2020 Positive* Negative Final A positive antibody test requires additional follow-up testing, Hepatitis C Virus Quantitation, to determine if a person is currently infected with Hepatitis C. HIV 1-2 Screen 12/29/2020 Negative Negative Final Syphilis Treponemal Ab 12/29/2020 Negative Negative Final Office Visit on 12/29/2020 Component Date Value Ref Range Status Case Report 12/29/2020 Final Value:Gynecologic Cytology Report Case: [id number] Authorizing Provider: Germania Valentino, Collected: 12/29/2020 11:09 AM AUTO PARTS CLERK Ordering Location: [facility] - An Received: 12/30/2020 12:03 PM [facility] First Screen: Violet Craig Rescreen: Talya Abel Specimen: THINPREP PAP SMEAR, Cervix / Endocervix LMP 12/29/2020 unk Final Interpretation 12/29/2020 Predominance of coccobacilli consistent with shift in vaginal charo Final General Categorization 12/29/2020 Negative for intraepithelial lesion or malignancy Final Specimen Adequacy 12/29/2020 Satisfactory for evaluation; transformation zone/endocervical component present Final Educational Note 12/29/2020 Final Value:The Pap smear is a screening test for the detection of cervical cancer and its precursor lesions. False positive and false negative results can occur. The test should be performed at regular intervals, and positive results should be confirmed before definitive therapy. Additional testing methods may be helpful in detecting abnormalities or in clinical management. The specimen has been analyzed by the ThinPrep imaging system, an automated imaging and review system which assists the laboratory in evaluating cells on ThinPrep tests. Following automated imaging selected new from every slide are reviewed by a rack loader. Specimen processing and Primary Screening performed at: [facility] - [address] [place] [address] HPV Results 12/29/2020 Final Value:This result contains rich text formatting which cannot be displayed here. Chlamydia trachomatis Amplified RNA 12/29/2020 NEGATIVE Negative Final Neisseria gonorrhoeae Amplfied RNA 12/29/2020 NEGATIVE Negative Final Trichomonas vaginalis 12/29/2020 Negative Negative Final Gardnerella vaginalis 12/29/2020 Positive* Negative Final The presence of Gardnerella vaginalis, although suggestive, is not diagnostic for bacterial vaginosis. Results should be interpreted in conjunction with other clinical and laboratory data. Ivy Species 12/29/2020 Negative Negative Final HPV 16 12/29/2020 Negative Negative Final HPV 18 12/29/2020 Negative Negative Final HPV, Other HR Types 12/29/2020 Negative Negative Final Assessment & Plan: #1 external hemorrhoid on examination small nontender no history of any bleeding at present I askedher to use high-fiber diet and take hemorrhoidal suppositories on as needed I gave her sample of RectiCare 5% to apply locally for pain. I also advised her to take sitz bath at present's hemorrhoids are small and does not need any surgical intervention. Patient is referred back to primary care physician. Holland Ann MD documented in this [id number] History of Present illness Narrative* Jeiym Tan LPN - 01/15/2021 11:17 AM EST This nurse acted as a diesel service journeyman for a rectal exam by Dr. Ann for Tia. Tia verbalized consent to be examined, appeared comfortable and tolerated the exam well. documented in this [id number] History of Present illness Narrative* Neris Ulloa, MATIAS - 07/22/2020 12:04 PM EDT Patient Name: Tia Levin Patient : 1990 Primary Care Provider: Physician No Referred By: Lelo Gallegos MD Referral Diagnosis: Gestational Diabetes Start Time: 12:00 pm End Time: 12:25 pm This appointment was conducted via telehealth via telephone. Verbal consent obtained. Nutrition Diagnosis: Self-monitoring deficit related to pt not SMBG as recommended as evidenced by incomplete self-monitoring BG results. Goals: 1) I will keep a food record for at least 3 days and bring this to my next appointment on 06/24 - no 2) I will try yoga on YouTube - yes but didn't feel comfortable doing this activity. Has been trying to stay active with kids. 3) I will continue to monitor my blood sugar before breakfast and 1 hour after meals - only 1-2 x day. New Goals: 1) I will find a primary care provider for my medical care. 2) I will monitor my blood sugar before breakfast and 1 hour after meals. 3) I will continue to include daily activity as tolerated. Follow Up: Contact information provided for additional questions Assessment: Pt is now 34 wks gestation. Pt has not been SMBG routinely and is now BID. Trying to increase to QID as recommended. Pt reports this was because her job was not allowing her adequate breaks to SMBG or eat. Starting having a lot of leg/feet swelling. Pt is now off work but is still only SMBG BID. A1C has decreased to 5.2% from 5.6%. Height: 63 in Current Weight: 234#, 1# increase x 6 wks. 30-34# wt gain at 34 wks BMI: Pre- 35 BMI Classification: Obese Class II (35.0-39.9) - pre-. Weight History: Wt Readings from Last 5 Encounters: 07/16/20 105.9 kg (233 lb 6.4 oz) 07/09/20 105.7 kg (233 lb) 07/04/20 106.4 kg (234 lb 9.6 oz) 06/19/20 104.1 kg (229 lb 9.6 oz) 06/11/20 105.7 kg (233 lb) Diet History/Recall: Breakfast - eggs + 1 slice toast (dry or butter) or oatmeal packet. Snack celery + PB or Tajik yogurt or green peppers. Lunch - will be light if full from snack and may have an early dinner. Dinner - pork chops, steamed vegetables. Snack - Tajik yogurt or vegetables or watermelon. Beverages - flavored simeon, Gatorade Zero, coffee in am w/ Splenda. Meals Away From Home - Subway occasionally - has the meat heated. Pt is including healthy food choices most often per food recall. Past Medical History: Past Medical History: Diagnosis Date Anxiety Depression Infectious viral hepatitis hep c PTSD (Post-Traumatic Stress Disorder) History From: History obtained from patient and chart review. Current/Pertinent Medications: prescription for Current Outpatient Medications Ordered in [facility] in [place] Medication Sig Dispense Refill blood sugar diagnostic (glucose blood) strips Use to check BG QID Dx O24.14 . 100 each 6 blood-glucose meter kit Use as instructed to check BG QID Dx O24.14 . 1 each 0 ferrous sulfate 325 (65 FE) MG tablet Take 1 tablet by mouth daily . vitamin with Ca-Iron-FA 27-1 mg Tab Take 1 (one) tablet by mouth daily . 90 tablet 3 Unilet Lancet 28 gauge Misc use to test BLOOD SUGAR FOUR TIMES DAILY No current Epic-ordered facility-administered medications on file. SMBG Results: 86-163. Lab Results Component Value Date HGBA1C 5.2 07/09/2020 HGBA1C 5.6 06/09/2020 No results found for: CHOL No results found for: TRIG No results found for: HDL No results found for: LDL Nutrition Focused Physical Findings: Current Activity Level: Lightly Active - ADLs Intervention/Education Provided: Discussed the importance of SMBG QID - pt states she is trying to work up to QID. Reinforced previous recommendations for nutrient adequacy and the importance of consistent carbohydrate intake and physical activity as tolerated for blood sugar management. Discussed b reastfeeding nutrition guidelines and will send detailed information in the mail. Reviewed pt's elevated risk for developing T2DM and encouraged pt to have appropriate screenings completed after delivery and in the future. Pt does not have a PCP at this time. Offered to send a list of local PCPs that are accepting pts however pt stated she would call her insurance and obtain options. Estimated Nutritional Needs: Calorie Needs: 2100 (16 kcal/kg + 450 kcals) Patient/Family Education: Learner: patient Readiness: maintenance - has made change and is trying and/or practicing different alternative behaviors Barriers to Learning: telephone appt Method: explanation and handout Response: verbalizes understanding Expected Adherence: fair Education Materials Provided: Nutrition Guidelines (AND) Monitoring/Evaluation: SMBG results, weight, food recall, self-report, goal achievement. This documentation has been sent to the referring healthcare provider. documented in this [id number] Instructions* Patient Instructions* Zelda Bautista CNP - 07/09/2020 11:07 AM EDT Call the office with Blood sugar readings in 1 week The goal hemoglobin A1C is 6% Please call the office sooner for episodes of hypoglycemia, BG < 70. Please remember to check your blood sugar 4x per day. Bring your blood sugar meter with you to appointments for review/download. It is important for us to prove you are checking your blood sugar, in order for us to renew/prescribe testing supplies. documented in this [id number] History of Present illness Narrative* Zelda Bautista, AUTO PARTS CLERK - 07/09/2020 11:01 AM EDT Subjective: Tia Levin 30 y.o. female being seen today for follow up evaluation and treatment of of Gestational Diabetes. She is at 32w3d. GEM 08/28/2020 scheduled Her obstetrical history is significant for: Gestational diabetes. She has a positive family history of diabetes mellitus in her father, paternal grandmother, paternal uncle. Previous pregnancies: 2010 female 5 pounds 15 ounces 2011 female 6 pounds 11 ounces 2013 male approximately 8 pounds Ms. Levin is a 30-year-old female patient presents the office for follow-up of her gestational diabetes. Patient's hemoglobin A1c today in the office is 5.2%. She is following a gestational diabetic diet closely. She is not currently needed any additional help in managing her blood glucose besides diet control measures. She is currently 32 weeks . She is got a scheduled for 08/28/2020. She denies any complaints or issues since her last visit with us. The patient did bring Anpro21 sugar meter with her for download today however there is not many readings on it. She states she started a new job at [employer] and does noise get breaks to check her blood sugar. Currently taking: No oral hypoglycemic medications Past History: Past Medical History: Diagnosis Date Anxiety Depression Infectious viral hepatitis hep c PTSD (Post-Traumatic Stress Disorder) Past Surgical History: Procedure Laterality Date SECTION, LOW TRANSVERSE 3 Family History Problem Relation Age of Onset Diabetes Father Throat cancer Maternal Grandmother Breast cancer Maternal Aunt Social History Tobacco Use Smoking status: Former Smoker Years: 10.00 Types: Cigarettes Quit date: 02/15/2020 Years since quittin.3 Smokeless tobacco: Never Used Substance Use Topics Alcohol use: Not Currently Alcohol/week: 10.0 standard drinks Types: 10 Shots of liquor per week Frequency: 2-4 times a month Drinks per session: 10 or more Binge frequency: Monthly Drug use: Not Currently Types: Crack cocaine, Heroin, IV Comment: Last use 04/28/2019 Menstrual History: OB History 4 Para 3 Term 3 AB Living 3 SAB TAB Ectopic Multiple Live Births 3 The following portions of the patient's history were reviewed and updated as appropriate: allergies, current medications, past family history, past medical history, past social history, past surgicalhistory and problem list. Review of Systems Review of Systems Constitutional: Negative for appetite change, fatigue and unexpected weight change. HENT: Negative for trouble swallowing. Eyes: Negative for visual disturbance. Respiratory: Positive for shortness of breath. Negative for chest tightness. Cardiovascular: Positive for leg swelling (intermittent). Negative for chest pain and palpitations. Gastrointestinal: Negative for constipation, diarrhea, nausea and vomiting. Endocrine: Positive for polyuria. Negative for polydipsia and polyphagia. Genitourinary: Negative for dysuria and frequency. Neurological: Negative for numbness. Psychiatric/Behavioral: Positive for sleep disturbance (insomnia). Objective: BP 101/70 Pulse 97 Ht 5' 3 Wt 105.7 kg (233 lb) LMP 11/25/2019 BMI 41.27 kg/m Wt Readings from Last 3 Encounters: 07/09/20 105.7 kg (233 lb) 07/04/20 106.4 kg (234 lb 9.6 oz) 06/19/20 104.1 kg (229 lb 9.6 oz) Physical Exam Constitutional: She is oriented to person, place, and time and well-developed, well-nourished, and in no distress. HENT: Head: Normocephalic and atraumatic. Eyes: Pupils are equal, round, and reactive to light. Conjunctivae and EOM are normal. Neck: No thyromegaly present. Cardiovascular: Normal rate, regular rhythm and normal heart sounds. Pulmonary/Chest: Effort normal. Musculoskeletal: General: No edema. Lymphadenopathy: She has no cervical adenopathy. Neurological: She is alert and oriented to person, place, and time. Skin: Skin is warm and dry. Psychiatric: Mood, memory, affect and judgment normal. Imaging Most recent Ultrasonography: consistent with dates according to patient *Per Patient report Lab Review Lab Results Component Value Date HGBA1C 5.6 06/09/2020 07/09/2020 Hemoglobin A1C 5.2% 05/21/20 1 hour: 183 3 hour GTT on 05/27/20 Fastin 1 hour: 168 2 hour: 193 3 hour: 176 Assessment: Tia Levin 30 y.o. female presents to our office today for initial evaluation and treatment of Gestational Diabetes. Patient's OGTT results were reveiwed. Hgb A1c is 5.2% today in office. Patient reports following a gestational diet .Patient has been following routinely with OBGYN as instructed. Patient reports no issues at present. Planning for 08/28. She is only checking her blood sugar sometimes once per day, due to constraints at her work and inability to check during her shifts. 1. Intrauterine of 32w3d gestation, with normal growth. 2. Gestational Diabetes in adequate control. Plan: Patient was strongly encouraged to try to check her blood sugar more often, at least fasting every morning, and at least after a couple of meals per day that we can make sure that she is continuing to have adequate blood sugar control. Goals of diabetes management discussed with patient. FBG goal <95 and one-hour post prandial goal <130. The goal of diabetes control during is to control the weight and metabolism of the infant. She is to report BG to office on a weekly basis, or more often if above target range. Hemoglobin A1C was tested today and will be tested q month during . Patient reminded of details of GDM diet, 30grm at breakfast, 45 at lunch and dinner and 15 gram snacks between meals. 1. Cont monitoring blood sugar before breakfast and 1 hour after the start of meals. 2. Hgb A1c once monthly 3. Patient instructed to call PRN with BG outside of goal range <90 pre-meal and <130 1 hour post prandial. 4. Patient to cont. To follow with forklift operator 5. Patient will require 2 hour 75 gram OGTT 8-12 weeks after delivery. 6. Follow-up in 2 weeks. Risks and potential complications of diabetes were reviewed with the patient. Electronically signed by Zelda MARIN 07/09/2110:03 AM documented in this [id number] History of Present illness Narrative* Lelo Gallegos MD - 06/09/2020 11:18 AM EDT Subjective: Tia Levin 30 y.o. female being seen today for initial evaluation and treatment of of Gestational Diabetes. She is at 28w1d. GEM 08/28/2020 scheduled Her obstetrical history is significant for: Gestational diabetes. Patient reports no current nausea or vomiting. She is currently being treated for a UTI with amoxicillin She has a positive family history of diabetes mellitus in her father, paternal grandmother, paternal uncle. Previous pregnancies: 2010 female 5 pounds 15 ounces 2011 female 6 pounds 11 ounces 2013 male approximately 8 pounds Currently taking: No oral hypoglycemic medications Past History: Past Medical History: Diagnosis Date Anxiety Depression Infectious viral hepatitis hep c PTSD (Post-Traumatic Stress Disorder) Past Surgical History: Procedure Laterality Date SECTION, LOW TRANSVERSE 3 Family History Problem Relation Age of Onset Diabetes Father Throat cancer Maternal Grandmother Breast cancer Maternal Aunt Social History Tobacco Use Smoking status: Former Smoker Years: 10.00 Types: Cigarettes Quit date: 02/15/2020 Years since quittin.3 Smokeless tobacco: Never Used Substance Use Topics Alcohol use: Not Currently Alcohol/week: 10.0 standard drinks Types: 10 Shots of liquor per week Frequency: 2-4 times a month Drinks per session: 10 or more Binge frequency: Monthly Drug use: Not Currently Types: Crack cocaine, Heroin, IV Comment: Last use 04/28/2019 Menstrual History: OB History 4 Para 3 Term 3 AB Living 3 SAB TAB Ectopic Multiple Live Births 3 The following portions of the patient's history were reviewed and updated as appropriate: allergies, current medications, past family history, past medical history, past social history, past surgicalhistory and problem list. Review of Systems Review of Systems Constitutional: Positive for fatigue. Negative for appetite change and unexpected weight change. HENT: Negative for trouble swallowing. Eyes: Negative for visual disturbance. Respiratory: Positive for shortness of breath. Negative for chest tightness. Cardiovascular: Positive for leg swelling (intermittent). Negative for chest pain and palpitations. Gastrointestinal: Negative for constipation, diarrhea, nausea and vomiting. Endocrine: Positive for polyuria. Negative for polydipsia and polyphagia. Genitourinary: Positive for frequency. Negative for dysuria. Neurological: Negative for numbness. Psychiatric/Behavioral: Positive for sleep disturbance (insomnia). Objective: BP 110/75 Pulse (!) 116 Ht 5' 3 Wt 105.7 kg (233 lb) LMP 11/25/2019 BMI 41.27 kg/m Wt Readings from Last 3 Encounters: 06/09/20 105.7 kg (233 lb) 06/05/20 105.6 kg (232 lb 12.8 oz) 05/21/20 102.5 kg (226 lb) Physical Exam Constitutional: She is oriented to person, place, and time and well-developed, well-nourished, and in no distress. HENT: Head: Normocephalic and atraumatic. Eyes: Pupils are equal, round, and reactive to light. Conjunctivae and EOM are normal. Neck: No thyromegaly present. Cardiovascular: Normal rate, regular rhythm and normal heart sounds. Pulmonary/Chest: Effort normal. Musculoskeletal: General: No edema. Lymphadenopathy: She has no cervical adenopathy. Neurological: She is alert and oriented to person, place, and time. Skin: Skin is warm and dry. Psychiatric: Mood, memory, affect and judgment normal. Imaging Most recent Ultrasonography: consistent with dates according to patient, 1 week ago. *Per Patient report Lab Review Lab Results Component Value Date HGBA1C 5.6 06/09/2020 05/21/20 1 hour: 183 3 hour GTT on 05/27/20 Fastin 1 hour: 168 2 hour: 193 3 hour: 176 Assessment: Tia Levin 30 y.o. female presents to our office today for initial evaluation and treatment of Gestational Diabetes. Patient's OGTT results were reveiwed. Hgb A1c is 5.6% today in office. Patient reports following a regular diet .Patient has been following routinely with OBGYN as instructed.Patient reports no issues at present. 1. Intrauterine of 28w1d gestation, with normal growth. 2. Gestational Diabetes in adequate control. Plan: Goals of diabetes management discussed with patient. FBG goal <95 and one-hour post prandial goal <130. The goal of diabetes control during is to control the weight and metabolism of the infant. Patient was instructed on the use of a BG meter and referred for dietary education. She is to report BG to office on a weekly basis, or more often if above target range. Hemoglobin A1C was tested today and will be tested q month during . While awaiting appointment with forklift operator, patient provided with details of GDM diet, 30grm at breakfast, 45 at lunch and dinner and 15 gram snacks between meals. 1. Begin monitoring blood sugar before breakfast and 1 hour after the start of meals. 2. Hgb A1c once monthly 3. Patient instructed to call PRN with BG outside of goal range <90 pre-meal and <130 1 hour post prandial. 4. Referral to forklift operator 5. Patient will require 2 hour 75 gram OGTT 8-12 weeks after delivery. 6. Follow-up in 2 weeks. Risks and potential complications of diabetes were reviewed with the patient. [facility] + Plan note No data available for this section [facility]* Diagnosis Diet controlled gestational diabetes mellitus (GDM) in second trimester documented in this encounter [facility] note* Diagnosis Acute frontal sinusitis, recurrence not specified- Primary documented in this encounter [employer] Phone: evaluation note* Diagnosis Diet controlled gestational diabetes mellitus (GDM) in third trimester- Primary documented in this encounter [facility] note* Diagnosis Diet controlled gestational diabetes mellitus (GDM) in third trimester documented in this encounter [facility] note* Diagnosis Viral URI- Primary Acute upper respiratory infections of unspecified site documented in this encounter [employer] Phone: evaluation note* Diagnosis Strain of rhomboid muscle, initial encounter Chest wall muscle strain, initial encounter documented in this encounter [employer] Phone: [email or web address] note* Diagnosis Viral syndrome- Primary Unspecified viral infection, in conditions classified elsewhere and of unspecified site documented in this encounter [employer] Phone: [email or web address] note* Diagnosis Hemorrhoids, unspecified hemorrhoid type documented in this encounter [facility] note* Diagnosis COVID-19- Primary Omphalitis in adult Unspecified local infection of skin and subcutaneous tissue documented in this encounter [employer] Phone: evalradryo note* Diagnosis Encounter for general adult medical examination with abnormal findings- Primary Anxiety and depression History of opioid abuse (HCC) Morbid obesity with body mass index (BMI) of 40.0 or higher (HCC) [facility]* Diagnosis Anxiety and depression- Primary At risk for obstructive sleep apnea Chronic bilateral low back pain without sciatica Hepatitis C antibody positive in blood Body mass index 40.0-44.9, adult (HCC) Body Mass Index 40.0-44.9, adult History of opioid abuse (HCC) documented [facility]* Diagnosis Morbid obesity with body mass index (BMI) of 40.0 or higher (HCC) documented [facility]* Diagnosis Acute pharyngitis, unspecified etiology- Primary documented in this encounter [employer] Phone: evaluation note* Diagnosis Acute bronchitis, unspecified organism- Primary documented in this encounter [employer] Phone: evaluation note* Diagnosis [place]eter muscle spasm- Primary Spasm of muscle Other acute postprocedural pain documented in this encounter [facility] [employer] Phone: evaluation note* Diagnosis Dry socket- Primary Alveolitis of jaw documented in this encounter [employer] Phone: evaluation note* Diagnosis Sprain of right ankle, unspecified ligament, initial encounter- Primary documented in this encounter [facility] [place] [facility]* Diagnosis Toothache- Primary Unspecified disorder of the teeth and supporting structures Dental decay Unspecified dental caries documented in this encounter [facility] [place] [facility] Discharge instructions* Instructions* Allegra Quinn MD - 06/24/2020 Although many oswv-rjd-pguvwio cough cold flu sinus medications are safe in , I would contact her HUB BANDER office in [facility] to verify what your HUB BANDER group feels a safe in . Tylenol for general aches and headaches is safe in , stay well-hydrated, nasal spray such as saline or save , and if you decide to use nasal rinses make sure you are using distilled or bottled water, as tap water from her fossa it may contain bacteria that could potentially seizuresinuses. We will give referral to primary care for follow-up as needed, return the emergency room if any symptoms change worsen or other concerns. * Attachments The following attachments cannot be sent through Care Everywhere. * Sinusitis (Lithuanian) documented in this [facility] Phone: Hospital Discharge instructions* Attachments The following attachments cannot be sent through Care Everywhere. * URI (Upper Respiratory Infection) (Lithuanian) documented in this [facility] Phone: Hospital Discharge instructions* Attachments The following attachments cannot be sent through Care Everywhere. * Muscle Strain (Lithuanian) documented in this [facility] Phone: Hospital Discharge instructions* Attachments The following attachments cannot be sent through Care Everywhere. * Viral Infections (Lithuanian) documented in this [facility] Phone: Hospital Discharge instructions* Attachments The following attachments cannot be sent through Care Everywhere. * Coronavirus Disease (COVID-19): General Info (Lithuanian) * Coronavirus Disease (COVID-19): Isolation (Lithuanian) * Piercing: Infection (Lithuanian) documented in this [facility] Phone: Hospital Discharge instructions* Instructions* Clark Moser MD - 07/22/2021 Use Tylenol or Motrin for pain. Take amoxicillin twice a day. Amoxicillin treats strep throat, ear infections, bronchitis and pneumonia. Call primary care doctor for close follow-up. * Attachments The following attachments cannot be sent through Care Everywhere. * Sore Throat (Lithuanian) documented in this [facility] Phone: Hospital Discharge instructions* Attachments The following attachments cannot be sent through Care Everywhere. * Bronchitis (Lithuanian) documented in this [facility] [place] [place] [employer] Phone: Hospital Discharge instructions* Attachments The following attachments cannot be sent through Care Everywhere. * Cramp: Muscle (Lithuanian) * Pain Post-Surgery: Acute (Lithuanian) documented in this [facility] [place] [facility] Phone: Hospital Discharge instructions* Attachments The following attachments cannot be sent through Care Everywhere. * [place] Tooth Extraction: Post-op (Lithuanian) documented in this [employer] [facility] Work Phone: Hospital Discharge instructions No data available for this section [facility] Discharge instructions* Attachments The following attachments cannot be sent through Care Everywhere. * Ankle Sprain (Lithuanian) documented in this [facility] note No data available for this section [facility] for referral (narrative)* Consultation (Routine) Status Reason Specialty Diagnoses / Procedures Referred By Contact Referred To Contact Authorized Nutrition Diagnoses Diet controlled gestational diabetes mellitus (GDM) in second trimester Lelo Gallegos MD [address] [place] [address] Nutrition Services [address] [place] [phone] [facility] for visit Narrative* Consultation (Routine) - Pending Review Specialty Diagnoses / Procedures Referred By Contac t Referred To Contact Gastroenterology Diagnoses Hemorrhoids, unspecified hemorrhoid type Germania Galaviz, AUTO PARTS CLERK [address] [place] [address] Holland Ann MD [address] [place] [address] Referral ID Status Reason Start Date Expiration Date V isits Requested Visits Authorized [id number] Pending Review 12/29/2020 01/14/2022 1 1 [facility] Assessments Diagnosis Accidental overdose of heroin, initial encounter (HCC)- Primary Diagnosis Abdominal pain, unspecified abdominal location Urinary tract infection with hematuria, site unspecified Viral hepatitis without hepatic coma, unspecified chronicity, unspecified viral hepatitis type Polysubstance abuse (HCC) Other, mixed, or unspecified nondependent drug abuse, unspecified Hyperbilirubinemia Disorders of bilirubin excretion Diagnosis Elevated LFTs Other abnormal blood chemistry IVDA (intravenous drug abuse) complicating (HCC) Mental disorders of mother, complicating , childbirth, or the puerperium, unspecified as to episode of care Diagnosis Hepatitis C virus infection without hepatic coma, unspecified chronicity Diagnosis Heroin abuse (HCC) Diagnosis Bacterial vaginosis Vaginitis and vulvovaginitis, unspecified Trichimoniasis Trichomoniasis, unspecified Furuncle of left axilla Carbuncle and furuncle of upper arm and forearm Diagnosis Pain, dental Unspecified disorder of the teeth and supporting structures Acute gingivitis Acute gingivitis, plaque induced Alveolar osteitis Alveolitis of jaw Diagnosis Atypical pneumonia- Primary Pneumonia, organism unspecified Diagnosis Poison arabella Contact dermatitis and other eczema due to plants (except food) Diagnosis Diet controlled gestational diabetes mellitus (GDM) in second trimester Advance Directives No Advanced Directives Records FoundDocuments on File Type Date Recorded Patient Early Morning Babysitter Expl anation Advance Directives and Living Will Power of Recreation Teacher Documents on File Type Date Recorded Patient Early Morning Babysitter Expl anation Advance Directives and Living Will 06/14/2019 7:25 AM does not have 3/13/2 0 Latest Code Status on File Code Status Date Activated Date Inactivated Comments Full Code 06/15/2019 9:29 AM 06/17/2019 4:38 PM Full Code - Unverified 06/14/2019 8:35 AM 06/15/2019 9:29 AM Documents on File Type Date Recorded Patient Early Morning Babysitter Expl anation Advance Directives and Living Will 06/14/2019 7:25 AM does not have 3/13/2 0 Latest Code Status on File Code Status Date Activated Date Inactivated Comments Full Code 06/15/2019 9:29 AM 06/17/2019 4:38 PM Full Code - Unverified 06/14/2019 8:35 AM 06/15/2019 9:29 AM Documents on File Type Date Recorded Patient Early Morning Babysitter Expl anation Advance Directives and Living Will 06/20/2019 1:10 PM does not have 3/13/2 0 Documents on File Type Date Recorded Patient Early Morning Babysitter Expl anation ACP-Advance Directive ACP-Power of Recreation Teacher Documents on File Type Date Recorded Patient Early Morning Babysitter Expl anation Advance Directives and Living Will 06/20/2019 1:10 PM does not have 3/13/2 0 Documents on File Type Date Recorded Patient Early Morning Babysitter Expl anation Advance Directives and Living Will 08/28/2020 5:58 AM does not have 3/13/2 0 Latest Code Status on File Code Status Date Activated Date Inactivated Comments Full Code 08/28/2020 11:15 AM 08/30/2020 11:53 AM Full Code 08/28/2020 5:31 AM 08/28/2020 11:07 AM Full Code 06/15/2019 9:29 AM 06/17/2019 4:38 PM Documents on File Type Date Recorded Patient Early Morning Babysitter Expl anation Advance Directives and Living Will 08/28/2020 5:58 AM does not have 0 Latest Code Status on File Code Status Date Activated Date Inactivated Comments Full Code 08/28/2020 11:15 AM 08/30/2020 11:53 AM Full Code 08/28/2020 5:31 AM 08/28/2020 11:07 AM Full Code 06/15/2019 9:29 AM 06/17/2019 4:38 PM Documents on File Type Date Recorded Patient Early Morning Babysitter Expl anation Advance Directives and Livin g Will 05/15/2021 12:00 AM Hospital Course * Savita Stiles PA-C - 06/17/2019 10:12 AM EDT MEDONE DISCHARGE SUMMARY Tia Levin Account: [id number] Admitted: 06/14/2019 Discharge Date/Time: 06/17/19 / 10:12 AM Clinical Summary Handoff to PCP PCP to address the following 1. Acute Liver Injury: Follow up with Dr. aHy (GI) with repeat weekly labs to include: CBC, CMP, PT/INR for the next month and see him in his office. 2. Hepatitis C: Follow up with new PCP in 1 week to establish care. Tia Levin is a 29 y.o. female with a history of amphetamine and heroine use who presented to [facility] 06/14/19 with complaints of abdominal pain and nausea. OLH AST 1116 ALT 665 Alk phos 255 T bili 6.5 Lipase 8. CTAP revealed pericholecystic fluid vs GB wall thickening, no gallstones or hepatic pathology noted. Patient transferred to [facility] 06/14/2019 for further treatment and evaluation. GI followedwith recommendations as discussed. Patient was stable for discharge home on 06/17/19. 1. Acute Liver Injury: OLH AST 1116 ALT 665 Alk phos 255 T bili 6.5 (normal 02/2019). RUQ U/S 06/14/19 with contracted gallbladder with nonspecific edematous gallbladder wall. MRCP 06/14/19 with periportal and GB wall edema, no biliary dilation or choledocholithiasis. Acute hepatitis panel positive forknown HCV. Autoimmune labs and serologies pending. Per GI, follow up outpatient with Dr. Hay withweekly labs as discussed. 2. RUQ Pain: Potentially liver capsular pain given above. Afebrile without leukocytosis. HIDA scan 06/15/19 was inconclusive due to elevated T.bili at baseline. Per general surgery, no surgery indicated at this time. Follow up with GI out patient as discussed. 3. Acute Pain: Due to above. Multimodal pain relief with tramadol, lidocaine patch, gabapentin. Stable on discharge. 4. Polysubstance Abuse: Amphetamines, Heroine and cocaine. Last use 06/13/19. Admit UDS + for opiatesand cocaine. Advised cessation. 5. Hepatitis C: known history. +HCV ab on admit. Advised follow up with new PCP as outpatient for treatment. No acute events overnight. Patient reportedly feeling improved and tolerating diet. She endorsed some lingering nausea but denied any vomiting. She continued to have some mild RUQ pain tender to palpitation but no worse. She reported she did not have PCP and was agreeable to meet with CM to get one. Discussed the importance of following up outpatient with new PCP and GI to have weekly labs to evaluate resolution of liver injury and to seek treatment for Hep C. Patient reports that she still uses and doesn't see the need for follow up as she is unsure what they will do. Discussed we are uncertain with labs still pending which requires the appropriate follow up with both GI and PCP and she was agreeable to see both providers out patient. Patient denied chest pain, dyspnea, V/D, fever or chills or other complaints at that time. Patient was stable for discharge home on 06/17/19. Discussed with patient to call PCP or to return to hospital if symptoms worsen to include pain or fever/chills. She understood this. Patient is new to me 06/17/19. I have reviewed chart for all vitals, diagnostic data, and data consultant notes. I discussed patient's case with Dr. Gregorio, Dr. Hay (GI) and RN. Discharge Medications Medication List ASK your doctor about these medications naltrexone microspheres Commonly known as: VivitroL Inject 380 (three hundred eighty) mg into the shoulder, thigh, or buttocks every 30 (thirty) days . Physician(s) Family: Physician No, Phone: None, Address: [facility] Follow Up: Javier Hay MD [address] [place] [address] [facility] [address] Follow up Repeat weekly CBC, CMP and PT/INR for the next 3-4 weeks then follow up out patient with Dr. Hay. [facility]: Weekly labs for CBC, CMP, PT/INR Additional Information: Patient seen and examined day of discharge. For more information regarding patient's care, including complete radiology reports, please contact [facility] at Patient instructions, including activity, were given to the patient/family at discharge. Please seethe After Visit Summary in the medical record for details. Completed by: Savita Stiles on 06/17/19, 10:12 AM Associated attestation - Thad Auguste MD - 06/17/2019 11:24 AM EDT Patient seen and examined independently. Personally reviewed labs, imaging. Discussed case with Savita Stiles PA-C. Agree with plan as below. Tia Levin is a 29 y.o. female with a history of amphetamine and heroine use who presented to [facility] 06/14/19 with complaints of abdominal pain and nausea. H AST 1116 ALT 665 Alk phos 255 T bili 6.5 Lipase 8. CTAP revealed pericholecystic fluid vs GB wall thickening, no gallstones or hepatic pathology noted. Patient transferred to [facility] 06/14/2019 for further treatment and evaluation. LFTs have remained relatively stable and have plateaued. Autoimmune work and serologies ordered and are pending. GS was consulted for surgical consideration per patient request but did not think it was GB related. Patient was stable for discharge as her symptoms are stable and is tolerating PO. Will need OP f/u with PCP and GI. documented in this encounter Discharge Instructions * Discharge Instr - Other Orders* Susan Ambrocio RN - 06/17/2019 8:16 AM EDT Teach Back: Abstinence from illicit substance use. Follow up with PCP after discharge. * Discharge Instr - Care Coordination* Consuelo Jaquez RN - 06/14/2019 1:16 PM EDT RESOURCES FOR PRIMARY CARE [facility] Primary Care Closed Opens tomorrow [address], [place] [address] [facility] [employer] [place] [address] [place] [address] DIRECTIONS WEBSITE [facility] Walk-In [facility] Closed Opens tomorrow 11 AM [address] [place] [address] documented in this encounter* Instructions* Adia Dillon, MARK - 08/13/2019 Please stay well-hydrated. I strongly encourage you to follow-up with Dr. Yadav regarding heroin abuse. Dr. Echeverria is well-known in the community for treating opiate addiction. Should you have any troubles with shortness of breath please return the ER immediately. * Attachments The following attachments cannot be sent through Care Everywhere. * Opioid Use Disorder: Medication-Assisted Treatment: General Info (Lithuanian) documented in this encounter* Attachments The following attachments cannot be sent through Care Everywhere. * Bacterial Vaginosis (Lithuanian) * Trichomoniasis (Lithuanian) documented in this encounter* Attachments The following attachments cannot be sent through Care Everywhere. * Dental Surgery: Generic: Post-op (Lithuanian) documented in this encounter* Attachments The following attachments cannot be sent through Care Everywhere. * Bronchitis (Lithuanian) * Pneumonia (Lithuanian) documented in this encounter* Attachments The following attachments cannot be sent through Care Everywhere. * Poison [place] - [place] - and [place] (Lithuanian) documented in this encounter History of Present Illness * Javier Hay MD - 06/17/2019 9:59 AM EDT GASTROENTEROLOGY DAILY PROGRESS NOTE 1 Patient Name: Tia Levin MR #: [id number] Assessment/Plan: Elevated LFTs Assessment & Plan 29yo F with PMHx IVDU and hepatitis C who presents from [facility] with elevated LFTs and imaging c/f possible acute cholecystitis. GI consulted for further evaluation. - LFTs: AP 255, AST/ALT 665/1116, TB 6.5 (normal 02/2019) - CT w IVC ([facility]): moderate GBW thickening w pericholecystic fluid and periportal edema; no cholelithiasis; nl CBD - RUQ U/S: contracted GB; no cholelithiasis; nonspecific GBW thickening w +Short's sign, cannot exclude acalculus cholecystitis; nl CBD - MRCP: diffuse periportal edema and GB edema; mild hepatosplenomegaly; no choledocholithiasis; nl CBD/PD - CBC, lactate, Amylase/Lipase normal - UDS: +cocaine and opiates - Negative HAV/HBV. HCV Ab (doubt acute Hep C) - Mentation intact. INR 1.2 -Pending- AI markers, CMV/EBV studies IMP: 1. Elevated LFTs 2. History of IVDU 3. History of hepatitis C Clinical presentation and elevated LFTs s/f viral vs ischemic hepatitis (in setting of recent cocaine use). Possible acute acalculus cholecystitis on imaging Negative choledocholithiasis. HIDA scan not helpful given high Tbili. Surgery has evaluated and does not feel this is GB related. LFTs seem to have plateaued at this point. I think she can be discharged home. Needs weekly LFTs with results sent to our office, will arrange referral to [facility] hepatology as well for treatment of HCV.She should avoid ilicit drugs. Chief Complaint: Elevated lft, abd pain Subjective: Still having pain. Eating ok No fever Surgery saw her yesterday Labs: Results from last 7 days Lab Units 06/16/19 0632 06/15/19 0457 06/14/19 1037 WBC K/mcL 6.48 5.74 7.28 HGB g/dL 12.9 12.6 11.6* HCT % 38.5 38.5 34.6* PLT K/mcL 185 155 172 Results from last 7 days Lab Units 06/17/19 0528 06/16/19 0632 06/15/19 0457 SODIUM mmol/L 138 139 136 POTASSIUM mmol/L 4.1 4.3 3.8 CHLORIDE mmol/L 102 103 103 BUN mg/dL 5* 4* 5* CREATININE mg/dL 0.36* 0.32* 0.36* CALCIUM mg/dL 8.6 8.4 8.2* TOTAL PROTEIN g/dL 6.8 6.2 5.8* BILIRUBIN TOTAL mg/dL 6.0* 5.9* 5.2* ALK PHOS U/L 253* 217* 193* ALT U/L 686* 825* 888* AST U/L 349* 544* 667* GLUCOSE mg/dL 102* 92 122* Physical Examination: Temp: [97.7 F (36.5 C)-98 F (36.7 C)] 97.8 F (36.6 C) Heart Rate: [75-85] 82 Resp: [14-18] 18 BP: (93-99)/(58-66) 99/66 CONSTITUTIONAL: nad, resting in bed ABDOMEN:soft and mildly tender in upper abd SKIN: mild jaundice Results/Medications Reviewed 06/17/19 9:59 AM: Laboratory, Radiology, Medications and Transcriptions Javier Hay * Consuelo Jaquez RN - 06/17/2019 9:08 AM EDT DISCHARGE PLAN PROGRESS NOTE Date: 06/17/2019 Time: 9:08 AM Patient Name: Tia Levin Date of : 1990 Sex: Female Resources for primary care added to AVS. 10:23 call from rn asking for comfort appt. For pt. Wed 06/19 at 1 pm added to avs. Notified patient by phone in room that appt may be by phone given covid changes in practice, [facility] staff to notify her tomorrow. Discharge Readiness Expected Discharge Date: 06/17/19 Barriers to Discharge: Physician consult to clear Anticipated Discharge Plan Anticipated HME: None Anticipated Home Care Needs: None * Thad Auguste MD - 06/17/2019 7:41 AM EDT [facility] Inpatient Progress Note 06/17/2019 Tia Levin 1990 [id number] Assessment/Plan: Tia Levni is a 29 y.o. female with a history of amphetamine and heroine use who presented to [facility] 06/14/19 with complaints of abdominal pain and nausea. [facility] AST 1116 ALT 665 Alk phos 255 T bili 6.5 Lipase 8. CTAP revealed pericholecystic fluid vs GB wall thickening, no gallstones or hepatic pathology noted. Patient transferred to [facility] 06/14/2019 for further treatment and evaluation. 1. Acute Liver Injury: H AST 1116 ALT 665 Alk phos 255 T bili 6.5 (normal 02/2019). RUQ U/S 06/14/19 with contracted gallbladder with nonspecific edematous gallbladder wall. MRCP 06/14/19 with periportal and GB wall edema, no biliary dilation or choledocholithiasis. Acute hepatitis panel positive forknown HCV. Added autoimmune labs and serologies pending. GI following. LFTs have been stabled. Discussed with GI. Ok to discharge. Will need weekly labs per GI. 2. RUQ Pain: Potentially liver capsular pain given above. Afebrile without leukocytosis. HIDA scan 06/15/19 was inconclusive due to elevated T.bili at baseline. GS consulted per patient request and consideration for gallbladder removal. GS recommended no surgical intervention as not GB related. 3. Acute Pain: Due to above. Multimodal pain relief with tramadol, lidocaine patch, gabapentin. 4. Polysubstance Abuse: Amphetamines, Heroine and cocaine. Last use 06/13/19. Admit UDS + for opiatesand cocaine. Advised cessation. 5. Hepatis C: known history. +HCV ab on admit. Advised follow up as outpatient for treatment. 6. DVT Prophylaxis: SCDs 7. Code Status: Full Current living situation: home Expected Disposition: home Estimated discharge date: TB Subjective: I have reviewed recent labs, diagnostics, vitals including pulse ox, and data consultant/other provider recommendations. No acute issues overnight LFTs still elevated Bilirubin elevated. Discussed with GI No surgical intervention per GS Tolerating PO Ok to discharge today Will need OP f/u and lab recheck Physical Exam: BP (!) 93/58 (BP Location: Right arm, Patient Position: Lying) Pulse 75 Temp 98 F (36.7 C) (Oral) Resp 16 Ht 5' 2 Wt 81.6 kg (180 lb) LMP 05/31/2019 (Within Days) SpO2 94% No BMI 32.92 kg/m General: NAD Eyes: EOMI ENT: neck supple Cardiovascular: Regular rate. Respiratory: Clear to auscultation Gastrointestinal: Soft, obese, RUQ tenderness mild. Genitourinary: no suprapubic tenderness Musculoskeletal: No edema. Skin: warm, dry, tract linton b/l arms, mildly jaundiced. Neuro: Alert. Oriented x3 Psych: Mood appropriate. Current Medications: gabapentin 300 mg Oral Q8H ARIANA lidocaine 1 patch Transdermal Daily Labs, Imaging and Studies reviewed: Results from last 7 days Lab Units 06/16/19 0632 06/15/19 0457 06/14/19 1037 WBC K/mcL 6.48 5.74 7.28 HGB g/dL 12.9 12.6 11.6* HCT % 38.5 38.5 34.6* PLT K/mcL 185 155 172 Results from last 7 days Lab Units 06/17/19 0528 06/16/19 0632 06/15/19 0457 SODIUM mmol/L 138 139 136 POTASSIUM mmol/L 4.1 4.3 3.8 CHLORIDE mmol/L 102 103 103 BICARB mmol/L 25 26 22 BUN mg/dL 5* 4* 5* CREATININE mg/dL 0.36* 0.32* 0.36* EGFR mL/min/1.73 m2 146 152 146 GLUCOSE mg/dL 102* 92 122* CALCIUM mg/dL 8.6 8.4 8.2* Results from last 7 days Lab Units 06/16/19 0632 06/15/19 0457 06/14/19 1037 ALT U/L 825* 888* 808* AST U/L 544* 667* 592* ALK PHOS U/L 217* 193* 183* BILIRUBIN TOTAL mg/dL 5.9* 5.2* 4.9* Results from last 7 days Lab Units 06/14/19 1037 INR 1.3* * Javier Hay MD - 06/16/2019 9:43 AM EDT GASTROENTEROLOGY DAILY PROGRESS NOTE 2 Patient Name: Tia Levin MR #: [id number] Assessment/Plan: Elevated LFTs Assessment & Plan 29yo F with PMHx IVDU and hepatitis C who presents from [facility] with elevated LFTs and imaging c/f possible acute cholecystitis. GI consulted for further evaluation. - LFTs: AP 255, AST/ALT 665/1116, TB 6.5 (normal 02/2019) - CT w IVC ([facility]): moderate GBW thickening w pericholecystic fluid and periportal edema; no cholelithiasis; nl CBD - RUQ U/S: contracted GB; no cholelithiasis; nonspecific GBW thickening w +Short's sign, cannot exclude acalculus cholecystitis; nl CBD - MRCP: diffuse periportal edema and GB edema; mild hepatosplenomegaly; no choledocholithiasis; nl CBD/PD - CBC, lactate, Amylase/Lipase normal - UDS: +cocaine and opiates - Negative HAV/HBV. HCV Ab (doubt acute Hep C) - Mentation intact. INR 1.2 IMP: 1. Elevated LFTs 2. Possible acalculus cholecystitis 3. History of IVDU 4. History of hepatitis C Clinical presentation and elevated LFTs s/f viral vs ischemic hepatitis (in setting of recent cocaine use). Possible acute acalculus cholecystitis on imaging Negative choledocholithiasis. HIDA scan not helpful given high Tbili at baseline. RECS: Will ask surgery to see her about gall bladder findings. Trend LFTs Supportive care AI serologies and CMV/EBV titers pending. Chief Complaint: abd pain Subjective: Continues to have abd pain, no fever, + bloating, cant eat much. This is different from her prior issues with hepatitis. LFTs stable, not improving much today. Lab Results Component Value Date ALT 825 (H) 06/16/2019 AST 544 (H) 06/16/2019 ALKPHOS 217 (H) 06/16/2019 BILITOT 5.9 (H) 06/16/2019 Review of Systems: Three systems were reviewed and negative except for those as specified in the history of present illness Labs: Results from last 7 days Lab Units 06/16/19 0632 06/15/19 0457 06/14/19 1037 WBC K/mcL 6.48 5.74 7.28 HGB g/dL 12.9 12.6 11.6* HCT % 38.5 38.5 34.6* PLT K/mcL 185 155 172 Results from last 7 days Lab Units 06/16/19 0632 06/15/197 06/14/19 1037 SODIUM mmol/L 139 136 137 POTASSIUM mmol/L 4.3 3.8 3.8 CHLORIDE mmol/L 103 103 104 BUN mg/dL 4* 5* 9 CREATININE mg/dL 0.32* 0.36* 0.43 CALCIUM mg/dL 8.4 8.2* 8.4 TOTAL PROTEIN g/dL 6.2 5.8* 5.7* BILIRUBIN TOTAL mg/dL 5.9* 5.2* 4.9* ALK PHOS U/L 217* 193* 183* ALT U/L 825* 888* 808* AST U/L 544* 667* 592* GLUCOSE mg/dL 92 122* 79 Physical Examination: Temp: [97.9 F (36.6 C)-98.4 F (36.9 C)] 98.1 F (36.7 C) Heart Rate: [75-84] 84 Resp: [14-16] 16 BP: (92-102)/(60-68) 92/60 CONSTITUTIONAL: Appropriate attention to grooming, normal body habitus, NAD ABDOMEN: soft tender in upper abd SKIN: slight jaundice Results/Medications Reviewed 06/16/19 9:43 AM: Laboratory, Radiology, Medications and Transcriptions Javier Hay * Thad Auguste MD - 06/16/2019 9:38 AM EDT [facility] Inpatient Progress Note 06/16/2019 Tia Levin 1990 [id number] Assessment/Plan: Tia Levin is a 29 y.o. female with a history of amphetamine and heroine use who presented to [facility] 06/14/19 with complaints of abdominal pain and nausea. [facility] AST 1116 ALT 665 Alk phos 255 T bili 6.5 Lipase 8. CTAP revealed pericholecystic fluid vs GB wall thickening, no gallstones or hepatic pathology noted. Patient transferred to [facility] 06/14/2019 for further treatment and evaluation. 1. Acute Liver Injury: [facility] AST 1116 ALT 665 Alk phos 255 T bili 6.5 (normal 02/2019). RUQ U/S 06/14/19 with contracted gallbladder with nonspecific edematous gallbladder wall. MRCP 06/14/19 with periportal and GB wall edema, no biliary dilation or choledocholithiasis. Acute hepatitis panel positive forknown HCV. Added autoimmune labs and serologies pending. GI following. 2. RUQ Pain: Potentially liver capsular pain given above. Afebrile without leukocytosis. HIDA scan 06/15/19 was inconclusive due to elevated T.bili at baseline. GS consulted per patient request and consideration for gallbladder removal. 3. Acute Pain: Due to above. Multimodal pain relief with tramadol, lidocaine patch, gabapentin. 4. Polysubstance Abuse: Amphetamines, Heroine and cocaine. Last use 06/13/19. Admit UDS + for opiatesand cocaine. Advised cessation. 5. Hepatis C: known history. +HCV ab on admit. Advised follow up as outpatient for treatment. 6. DVT Prophylaxis: SCDs 7. Code Status: Full Current living situation: home Expected Disposition: home Estimated discharge date: TBD Subjective: Patient is new to me on 06/16/2019. I have reviewed recent labs, diagnostics, vitals including pulseox, and data consultant/other provider recommendations. No acute issues overnight LFTs still elevated Bilirubin elevated. Discussed with GI Patient adamant was involving her gallbladder Doubt that is the cause. GS consulted Does not appear to be in acute pain. Physical Exam: BP 92/60 Pulse 84 Temp 98.1 F (36.7 C) (Oral) Resp 16 Ht 5' 2 Wt 81.6 kg (180 lb) LMP 05/31/2019 (Within Days) SpO2 94% No BMI 32.92 kg/m General: NAD Eyes: EOMI ENT: neck supple Cardiovascular: Regular rate. Respiratory: Clear to auscultation Gastrointestinal: Soft, obese, RUQ tenderness mild. Genitourinary: no suprapubic tenderness Musculoskeletal: No edema. Skin: warm, dry, tract linton b/l arms, mildly jaundiced. Neuro: Alert. Oriented x3 Psych: Mood appropriate. Current Medications: gabapentin 300 mg Oral Q8H ARIANA lidocaine 1 patch Transdermal Daily Labs, Imaging and Studies reviewed: Results from last 7 days Lab Units 06/16/19 0632 06/15/19 0457 06/14/19 1037 WBC K/mcL 6.48 5.74 7.28 HGB g/dL 12.9 12.6 11.6* HCT % 38.5 38.5 34.6* PLT K/mcL 185 155 172 Results from last 7 days Lab Units 06/16/19 0632 06/15/19 0457 06/14/19 1037 SODIUM mmol/L 139 136 137 POTASSIUM mmol/L 4.3 3.8 3.8 CHLORIDE mmol/L 103 103 104 BICARB mmol/L 26 22 21 BUN mg/dL 4* 5* 9 CREATININE mg/dL 0.32* 0.36* 0.43 EGFR mL/min/1.73 m2 152 146 138 GLUCOSE mg/dL 92 122* 79 CALCIUM mg/dL 8.4 8.2* 8.4 Results from last 7 days Lab Units 06/16/19 0632 06/15/19 0457 06/14/19 1037 ALT U/L 825* 888* 808* AST U/L 544* 667* 592* ALK PHOS U/L 217* 193* 183* BILIRUBIN TOTAL mg/dL 5.9* 5.2* 4.9* Results from last 7 days Lab Units 06/14/19 1037 INR 1.3* * Aisha Hare, [employer] CLERK - 06/15/2019 12:17 PM EDT GASTROENTEROLOGY DAILY PROGRESS NOTE 2 Patient Name: Tia Levin MR #: [id number] Assessment/Plan: Elevated LFTs Assessment & Plan 29yo F with PMHx IVDU and hepatitis C who presents from [facility] with elevated LFTs and imaging c/f possible acute cholecystitis. GI consulted for further evaluation. - LFTs: AP 255, AST/ALT 665/1116, TB 6.5 (normal 02/2019) - CT w IVC ([facility]): moderate GBW thickening w pericholecystic fluid and periportal edema; no cholelithiasis; nl CBD - RUQ U/S: contracted GB; no cholelithiasis; nonspecific GBW thickening w +Short's sign, cannot exclude acalculus cholecystitis; nl CBD - MRCP: diffuse periportal edema and GB edema; mild hepatosplenomegaly; no choledocholithiasis; nl CBD/PD - CBC, lactate, Amylase/Lipase normal - UDS: +cocaine and opiates - Negative HAV/HBV. HCV Ab (doubt acute Hep C) - Mentation intact. INR 1.2 IMP: 1. Elevated LFTs 2. Possible acalculus cholecystitis 3. History of IVDU 4. History of hepatitis C Clinical presentation and elevated LFTs s/f viral vs ischemic hepatitis (in setting of recent cocaine use). Possible acute acalculus cholecystitis on imaging however presentation seems less consistent. Negative choledocholithiasis. RECS: - Trend LFTs - Supportive care - check AI serologies, HCV Quant - f/u pending HIDA - If above negative, consider broadening viral work-up (CMV, EBV, Covid) Chief Complaint: Abdominal pain jaundice Subjective: Reports ongoing abdominal pain, bloating, and nausea today. Was able to eat some pizza and 1/2 grilled cheese sandwich last night. LFTs uptrending today. Review of Systems: Three systems were reviewed and negative except for those as specified in the history of present illness Labs: Results from last 7 days Lab Units 06/15/19 0457 06/14/19 1037 WBC K/mcL 5.74 7.28 HGB g/dL 12.6 11.6* HCT % 38.5 34.6* PLT K/mcL 155 172 Results from last 7 days Lab Units 06/15/19 0457 06/14/19 1037 SODIUM mmol/L 136 137 POTASSIUM mmol/L 3.8 3.8 CHLORIDE mmol/L 103 104 BUN mg/dL 5* 9 CREATININE mg/dL 0.36* 0.43 CALCIUM mg/dL 8.2* 8.4 TOTAL PROTEIN g/dL 5.8* 5.7* BILIRUBIN TOTAL mg/dL 5.2* 4.9* ALK PHOS U/L 193* 183* ALT U/L 888* 808* AST U/L 667* 592* GLUCOSE mg/dL 122* 79 Physical Examination: Temp: [97.5 F (36.4 C)-98.6 F (37 C)] 98.6 F (37 C) Heart Rate: [65-72] 72 Resp: [14-16] 16 BP: (97-111)/(57-74) 107/71 CONSTITUTIONAL: Awake, NAD EYES: sclera icteric ABDOMEN: soft, non-distended, epigastrium/RUQ ttp w/o peritoneal signs SKIN: Jaundice NEURO: AAO x3 Results/Medications Reviewed 06/15/19 12:17 PM: Laboratory, Radiology, Medications and Transcriptions Aisha Hare CNP [facility] (for staff use only) * Indra Pruitt MD - 06/15/2019 10:43 AM EDT [facility] Inpatient Progress Note 06/15/2019 Tia Levin 1990 [id number] Assessment/Plan: Tia Levin is a 29 y.o. female with a history of amphetamine and heroine use who presented to [facility] 06/14/19 with complaints of abdominal pain and nausea. [facility] AST 1116 ALT 665 Alk phos 255 T bili 6.5 Lipase 8. CTAP revealed pericholecystic fluid vs GB wall thickening, no gallstones or hepatic pathology noted. Patient transferred to [facility] 06/14/2019 for further treatment and evaluation. 1. Acute Liver Injury: [facility] AST 1116 ALT 665 Alk phos 255 T bili 6.5 (normal 02/2019). RUQ U/S 06/14/19 with contracted gallbladder with nonspecific edematous gallbladder wall. MRCP 06/14/19 with periportal and GB wall edema, no biliary dilation or choledocholithiasis. Acute hepatitis panel positive forknown HCV. Added autoimmune labs. GI followed 2. RUQ Pain: Potentially liver capsular pain given above. Afebrile without leukocytosis. Given GB imaging will obtain HIDA scan. If positive, gen surg consult. 3. Acute Pain: Due to above. Multimodal pain relief with tramadol, lidocaine patch, gabapentin. 4. Polysubstance Abuse: Amphetamines, Heroine and cocaine. Last use 06/13/19. Admit UDS + for opiatesand cocaine. Advised cessation. 5. Hepatis C: known history. +HCV ab on admit. Advised follow up as outpatient for treatment. 6. DVT Prophylaxis: SCDs 7. Code Status: Full Current living situation: home Expected Disposition: home Estimated discharge date: TBD Subjective: Patient new to me. I reviewed prior medical records and history in EMR and have summarized my findings in the assessment and plan above. No events overnight. Stable RUQ pain. Current pain regimen helping.no CP or SOB. Physical Exam: BP 107/71 (BP Location: Right arm, Patient Position: Lying) Pulse 72 Temp 98.6 F (37 C) (Oral) Resp 14 Ht 5' 2 Wt 81.6 kg (180 lb) LMP 05/31/2019 (Within Days) SpO2 95% BreastfeedingNo BMI 32.92 kg/m General: NAD Eyes: EOMI ENT: neck supple Cardiovascular: Regular rate. Respiratory: Clear to auscultation Gastrointestinal: Soft, obese, RUQ tenderness. + short sign Genitourinary: no suprapubic tenderness Musculoskeletal: No edema. Skin: warm, dry, tract linton b/l arms Neuro: Alert. Oriented x3 Psych: Mood appropriate. Current Medications: gabapentin 300 mg Oral Q8H ARIANA lidocaine 1 patch Transdermal Daily Labs, Imaging and Studies reviewed: Results from last 7 days Lab Units 06/15/19 0457 06/14/19 1037 WBC K/mcL 5.74 7.28 HGB g/dL 12.6 11.6* HCT % 38.5 34.6* PLT K/mcL 155 172 Results from last 7 days Lab Units 06/15/19 0457 06/14/19 1037 SODIUM mmol/L 136 137 POTASSIUM mmol/L 3.8 3.8 CHLORIDE mmol/L 103 104 BICARB mmol/L 22 21 BUN mg/dL 5* 9 CREATININE mg/dL 0.36* 0.43 EGFR mL/min/1.73 m2 146 138 GLUCOSE mg/dL 122* 79 CALCIUM mg/dL 8.2* 8.4 Results from last 7 days Lab Units 06/15/19 0457 06/14/19 1037 ALT U/L 888* 808* AST U/L 667* 592* ALK PHOS U/L 193* 183* BILIRUBIN TOTAL mg/dL 5.2* 4.9* Results from last 7 days Lab Units 06/14/19 1037 INR 1.3* * Leila Smith RN - 06/14/2019 1:22 PM EDT DISCHARGE PLAN PROGRESS NOTE Date: 06/14/2019 Time: 1:22 PM Patient Name: Tia Levin Date of : 1990 Sex: Female Pt has no PCP; resources for primary care added to AVS. Discharge Readiness Expected Discharge Date: 06/17/19 Barriers to Discharge: Physician consult to clear Anticipated Discharge Plan Anticipated HME: None Anticipated Home Care Needs: None * Deanna Medina RN - 06/14/2019 8:55 AM EDT COMPLEX DISCHARGE Date: 06/14/2019 Time: 8:56 AM Patient Name: Tia Levin Date of : 1990 Sex: Female Patient is from home and will return with her mother upon discharge. Patient does not have a PCP and refused a case liner consult for assistance. Verified insurance and Rx. Will continue to follow,no further needs at this time. Discharge Planning Living Arrangements: Family members Support Systems: Family members Assistance Needed: none Type of Residence: Private residence Prior to Admission Home Care Services: No Patient expects to be discharged to:: home Does the patient need discharge transport arranged?: No Current Home Equipment: None Anticipated HME: None Anticipated Home Care Needs: None Anticipated Discharge Plan Anticipated HME: None Anticipated Home Care Needs: None Discharge Readiness Expected Discharge Date: 06/17/19 Barriers to Discharge: Physician consult to clear documented in this encounter* Taryn Torres RN - 06/18/2019 10:48 AM EDT Patient on TCC EP[facility] for follow-up. After provider review, I called and spoke with patient and changed her appointment to a phone visit, same date/time. In addition, as per provider request, I spoke with patient about going to any [facility] to have her lab taken so it will be available for review on 06/20/19 when she is called for her TCC appointment. Patient agreed with this plan. documented in this encounter* Anastasiia Garza CNP - 06/20/2019 1:16 PM EDT Attempted to call the patient for her tele-health visit today though she did not answer. Called [facility] number 5 times and home phone once, neither phone number left me the option to leave a voicemail. * Franchesca Skaggs MA - 06/20/2019 1:13 PM EDT Abdominal pain and yellow eyes follow up. Patient states that she is not feeling better but not worse. Does not have a PCP. Does want PCP right now. documented in this encounter* Neris Ulloa RD - 06/10/2020 10:33 AM EDT Patient Name: Tia Levin Patient : 1990 Primary Care Provider: Physician No Referred By: Lelo Gallegos MD Referral Diagnosis: Gestational Diabetes Start Time: 10:30 am End Time: 11:30 am Nutrition Diagnosis: Food and nutrition related knowledge deficit related to lack of exposure to nutrition information as evidenced by patient interview Goals: 1) I will keep a food record for at least 3 days and bring this to my next appointment on 06/24. 2) I will try yoga on [employer]. 3) I will continue to monitor my blood sugar before breakfast and 1 hour after meals. Follow Up: 06/24 at 1:30 pm Assessment: Currently 28 wks, GEM = 08/28/20 ( scheduled.) 4th . Lives w/ parents and 3 children. Qualifies for food assistance and plans to enroll in [employer]. Pt has a history of drug addiction and had significant weight gain after becoming sober. Weight increased ~40-50# last year prior to . Pt also quit smoking cigarettes prior to . Continues to see counselor for addiction. Denies N/V/D/C. C/o heartburn occasionally. Primary support - parents Food prep - mom or self Grocery Shopping - dad Height: 63 inches Current Weight: 233#. 200# pre-. ~30# wt gain at 28 wks. BMI: Pre- 35 BMI Classification: Obese Class II (35.0-39.9) - pre- Weight History: Wt Readings from Last 5 Encounters: 06/09/20 105.7 kg (233 lb) 06/05/20 105.6 kg (232 lb 12.8 oz) 05/21/20 102.5 kg (226 lb) 04/25/20 100.5 kg (221 lb 9.6 oz) 03/17/20 100 kg (220 lb 6.4 oz) Diet History/Recall: 6 am 2 cups coffee w/ cream and sugar. 8 am eggs + toast + hashbrowns (had eggs + spinach this am.) 11am snack - banana. 12-1 pm sandwich or tator tots. Snack in the afternoon - chips or candy. 4:30-6 pm Dinner - fish, crispy chicken salad + dressing. Evening snacks - pulled pork sandwich and ice cream. Beverages - 2 cups coffee in am, gatorade and water. Drinks 3-5 bottles of water daily (lemon water) Occasional iced coffee at [employer]. Was drinking a lot of Mountain Dew and Energy drinks prior to but stopped. Meals Away From Home - most days, fast food Past Medical History: Past Medical History: Diagnosis Date Anxiety Depression Infectious viral hepatitis hep c PTSD (Post-Traumatic Stress Disorder) History From: History obtained from patient and chart review. Current/Pertinent Medications: prescription for Current Outpatient Medications Ordered in [facility] Medication Sig Dispense Refill amoxicillin (AMOXIL) 250 MG capsule Take 1 (one) capsule (250 mg total) by mouth 3 (three) times a day for 7 days . 21 capsule 0 amoxicillin (AMOXIL) 250 MG capsule Take 250 mg by mouth 3 (three) times a day . blood sugar diagnostic (glucose blood) strips Use to check BG QID Dx O24.14 . 100 each 6 blood-glucose meter kit Use as instructed to check BG QID Dx O24.14 . 1 each 0 ferrous sulfate 325 (65 FE) MG tablet Take 1 tablet by mouth daily . lancets Misc Use as instructed to check BG QID Dx O24.14 . 100 each 6 vitamin with Ca-Iron-FA 27-1 mg Tab Take 1 (one) tablet by mouth daily . 90 tablet 3 No current Epic-ordered facility-administered medications on file. SMBG Results: 93 this am, 90 after breakfast this morning. OGTT Results: FBG 80, 1 hr 168, 2 hr 193, 3 hr 176 Lab Results Component Value Date HGBA1C 5.6 06/09/2020 No results found for: CHOL No results found for: TRIG No results found for: HDL No results found for: LDL Nutrition Focused Physical Findings: Dentition: denies GI/food intolerances: chicken - smell causes nausea Food Allergies: none Current Activity Level: Walks occasionally. Has abdomen pain/pain on tailborn when walking. Will begoing to chiropractor for assessment. Food Insecurity Within the past 12 months, we worried whether our food would run out before we got money to buy more [Multiple Answer] ? Often True [3.00] ? Sometimes True [2.00] ? Rarely True [1.00] ? Never True [0.00] Within the past 12 months, the food we bought just didn't last and we didn't have the money to get more. [Multiple Answer] ? Often true [3.00] ? Sometimes true [2.00] ? Rarely true [1.00] ? Never true [0.00] Intervention/Education Provided: Reviewed meal and snack planning, nutrition guidelines for GDM andsample menus for several days. Pt was interested in education and verbalized that diabetes education would also be helpful for father w/ type 2 diabetes. Estimated Nutritional Needs: Calorie Needs: ~2100 (16 kcal/kg + 450) Patient/Family Education: Learner: patient Readiness: maintenance - has made change and is trying and/or practicing different alternative behaviors Barriers to Learning: none Method: explanation and handout Response: needs reinforcement Expected Adherence: good Education Materials Provided: Meal and Snack Planning, Sample Menus for GDM, GDM Nutrition Therapy Monitoring/Evaluation: SMBG results, weight, food recall, self-report, goal achievement. This documentation has been sent to the referring healthcare provider. documented in this encounter Summary Purpose Family History No Family History Records FoundNo Family History Records FoundNo Family History Records FoundNo Family History Records FoundNo Family History Records FoundNo Family History Records FoundNo Family History Records Found No data available for this section No data available for this section No Family History Records Found Reason for Referral Specialty Diagnoses / Procedures Referred By Contac t Referred To Contact Nutrition Diagnoses Morbid obesity with body mass index (BMI) of 40.0 or higher ([facility]) Farhat Vang MD [address] [place] [id number] Referral ID Status Reason Start Date Expiration Date Visits Requested Visits Authorized [id number] Authorized Specialty Services Required/Pat ient's Best Interest 04/16/2021 04/16/2022 1 1 Specialty Diagnoses / Procedures Referred By Contac t Referred To Contact Neurosurgery Diagnoses Chronic bilateral low back pain without sciatica Farhat Vang MD [address] [place] [address] [id number] [facility] [place] [address] Referral ID Status Reason Start Date Expiration Date Visits Requested Visits Authorized [id number] Authorized Specialty Services Required/Pat ient's Best Interest 05/14/2021 05/14/2022 1 1 Specialty Diagnoses / Procedures Referred By Contac t Referred To Contact Rehabilitation Diagnoses Chronic bilateral low back pain without sciatica Farhat Vang MD [address] [place] [address] Referral ID Status Reason Start Date Expiration Date Visits Requested Visits Authorized [id number] Authorized Specialty Services Required/Pat ient's Best Interest 05/14/2021 05/14/2022 1 1 Specialty Diagnoses / Procedures Referred By Joey grimes Referred To Contact Diagnoses At risk for obstructive sleep apnea Farhat Vang MD [address] [facility] [address] [place] [address] Gabriel Jacinto MD [address] [place] [address] Referral ID Status Reason Start Date Expiration Date Visits Requested Visits Authorized [id number] Authorized Specialty Services Required/Pat ient's Best Interest 05/14/2021 05/14/2022 1 1 Additional Source Comments Reason for Visit (unrecogniz ed section and content) Reason Comments Drug Overdose Pt was brought in by [facility] for heroin OD. Prior to arrival [facility] gave 4 mg nasal Narcan. Reason Comments Abdominal Pain Pt states that she h as been having ABd pain, dark urine, lack of appetite, nausea and yellow eyes for the past week; States that she has hep C and she is an IV durg user, used heroine this AM; Status Reason Specialty Diagnoses / Procedures Referre d By Contact Referred To Contact Diagnoses Hepatitis/ pancreatitis Reason Comments Transition Of Care Reason Comments Abdominal Pain yellow eyes Follow-up Reason Comments Drug Overdose Reason Comments Cyst under left armpit Reason Comments Dental Problem left lower teeth x 2 pulled last week and the pain is worse not better Reason Comments Illness Pt states that she h as been ill x 2 days with headache, chest tighness, and cough. Reason Comments Poison Arabella bilateral arms Status Reason Specialty Diagnoses / Procedures Referred By Contact Referred To Contact Authorized Nutrition Diagnoses Diet controlled gestational diabetes mellitus (GDM) in second trimester Lelo Gallegos MD [address] [place] [address] Nutrition Services [address] [place] [address] Reason Comments Gestational Diabetes Status Reason Specialty Diagnoses / Procedures Referred By Contact Referred To Contact Closed Endocrinology Diagnoses Diet controlled gestational diabetes mellitus (GDM) in second trimester Roslyn Stevenson MD [address] [place] [address] Lelo Gallegos MD [address] [place] [address] Reason Comments Pharyngitis sore throat and head ache for 3 days Headache Reason Comments Diabetes Mellitus Gestational Reason Comments Illness Pt states she has be en since for the past 3 days, cough, chest congestion, heasache, sore throat, pt did have COVID in March 2020. Reason Comments Shoulder Pain Patient arrives to E R with complaints of right shoulder pain after patient was trying to lift herself up and patient reports she imediately felt sharp pain. Reason Comments Other all over bodyache Reason Comments Concern For COVID-19 Pt arrives to ER to day with complaints of body aches, fevers, cough, and sore throat since yesterday. Pt reports it feels just like the last time I had COVID last March . Other Pt also complains of pus coming out of her belly button which has been worsening over the last couple of months. Reason Comments Establish Care Reason Comments Follow-up Specialty Diagnoses / Procedures Referred By Contedilson t Referred To Contact Nutrition Diagnoses Morbid obesity with body mass index (BMI) of 40.0 or higher ([facility]) Farhat Vang MD [address] [facility] [address] [place] [address] Nutrition Services [address] [place] [address] Referral ID Status Reason Start Date Expiration Date Visits Requested Visits Authorized [id number] Authorized Specialty Services Required/Pat ient's Best Interest 04/16/2021 04/16/2022 3 3 Reason Comments Cough pt has had cough, he adache, fever chills for past couple days and throat pain Pharyngitis Reason Comments Cough Patient arrives to E R today with complaints of cough, congestion, and fatigue x 4 days. Patient took 2 covid tests at home with negative result. Reason Comments Dental Pain Patient had 2 teeth pulled today on right side. One tooth on the top and one tooth on the bottom. Per patient there was some complications with the bottom right tooth. Patient states she was given pain medications but they are not helping. Reason Comments Dental Pain Pt arrives to ER wit h c/o pain on right side of jaw radiating into head causing chronic headache since tooth extraction last week. States she came to ER hours after procedure because she thought dentist may have broken her jaw. Pain is persistent since procedure. Reason Comments Ankle Injury Right ankle pain aft er she stepped off a truck and heard a pop. Reason Comments Dental Pain C/o right upper toot h pain for 3 days. Patient states she is 7 weeks . Carli Sims PA-C - 06/14/2019 7:29 AM EDT H&P Notes (unrecognized sect ion and content) [facility] History and Physical Note 06/14/19 Tia Levin 1990 [id number] Assessment/Plan: Tia Levin is a 29 y.o. female with a history of amphetamine and heroine use who presented to [facility] 06/14/19 with complaints of abdominal pain and nausea. [facility] AST 1116 ALT 665 Alk phos 255 T bili 6.5 Lipase 8. CTAP revealed pericholecystic fluid vs GB wall thickening, no gallstones or hepatic pathology noted. Patient transferred to [facility] 06/14/2019 for further treatment and evaluation. 1. Elevated LFTs: [facility] AST 1116 ALT 665 Alk phos 255 T bili 6.5 (normal 02/2019). [facility] CTAP as noted above. RUQ U/S 06/14/19 with contracted gallbladder with nonspecific edematous gallbladder wall. Acute hepatitis panel positive for known HCV ab otherwise non-revealing. GI evaluated, recommended MRCP which is pending. 2. RUQ pain: admit LFTs as noted above. CTAP and RUQ US as discussed. MRCP pending, if unrevealing consider need for HIDA scan. 3. Amphetamine and Heroine Abuse: per history, admit UDS + for opiates and cocaine. Pt reported last use 06/13/19. Advised cessation. 4. Hepatis C: known history. +HCV ab on admit. Advised follow up as outpatient for treatment once clean. 5. DVT Prophylaxis: Swati 1, low risk Current living situation: home Expected Disposition: home Estimated discharge date: TBD Chief Complaint: Elevated LFTs History of Present Illness: Tia Levin is a 29 y.o. female with a history of amphetamine and heroine use who presented to [facility] 06/14/19 with complaints of abdominal pain and nausea. [facility] AST 1116 ALT 665 Alk phos 255 T bili 6.5 Lipase 8. CTAP revealed pericholecystic fluid vs GB wall thickening, no gallstones or hepatic pathology noted. Patient transferred to [facility] 06/14/2019 for further treatment and evaluation. Patient seen and examined at bedside. States that for the past week she has had progressively worsening RUQ with associated nausea and loss of appetite. She denies known trigger for symptoms. Also denies aggravating or alleviating factors. Denies vomiting, fever, chills, CP or SOB. She has not been around anyone sick. States she noticed several days ago that her urine was dark in color and her skin became yellow in appearance. She reports a history of drug use, most recently the day prior to admission. Reports a known history of HCV. Today I personally did a review of prior medical records and have summarized my findings in my assessment and plan as noted. Today I also reviewed recent labs, diagnostics, vitals including pulse ox, and data consultant/other provider recommendations. Discussed with collaborating physician Dr. Pruitt ([facility] Attending). Final attestation to follow ROS: 10 systems were reviewed and negative, except as noted above. Past Medical, Surgical, Social, Family History: Past Medical History: Diagnosis Date Anxiety Depression Infectious viral hepatitis hep c PTSD (Post-Traumatic Stress Disorder) Past Surgical History: Procedure Laterality Date SECTION, LOW TRANSVERSE 3 Social History Socioeconomic History Marital status: Single Spouse name: Not on file Number of children: Not on file Years of education: Not on file Highest education level: Not on file Occupational History Not on file Social Needs Financial resource strain: Not on file Food insecurity Worry: Not on file Inability: Not on file Transportation needs Medical: Not on file Non-medical: Not on file Tobacco Use Smoking status: Current Every Day Smoker Packs/day: 0.50 Years: 10.00 Pack years: 5.00 Types: Cigarettes Smokeless tobacco: Never Used Substance and Sexual Activity Alcohol use: Not Currently Alcohol/week: 10.0 standard drinks Types: 10 Shots of liquor per week Frequency: 2-4 times a month Drinks per session: 10 or more Binge frequency: Monthly Drug use: Not Currently Types: Crack cocaine, Heroin Comment: Last use 04/28/2019 Sexual activity: Yes Partners: Male, Female control/protection: Condom Lifestyle Physical activity Days per week: Not on file Minutes per session: Not on file Stress: Not on file Relationships Social connections Talks on phone: Not on file Gets together: Not on file Attends church service: Not on file Active member of club or organization: Not on file Attends meetings of clubs or organizations: Not on file Relationship status: Not on file Other Topics Concern Not on file Social History Narrative Not on file Family History Problem Relation Age of Onset Diabetes Father defects Maternal Grandmother Home Medications: Outpatient Medications as of 06/14/2019 Medication Sig naltrexone microspheres (VivitroL) Inject 380 (three hundred eighty) mg into the shoulder, thigh, or buttocks every 30 (thirty) days . Physical Exam: BP 98/62 Pulse 70 Temp 97.6 F (36.4 C) (Oral) Resp 14 LMP 05/31/2019 (Within Days) SpO2 95% No General: NAD, resting comfortably in bed on exam Eyes: EOMI, slight scleral icterus ENT: neck supple Cardiovascular: Regular rate. Respiratory: Clear to auscultation, unlabored on RA Gastrointestinal: Soft, RUQ tender to palpation, no peritoneal signs Genitourinary: no suprapubic tenderness Musculoskeletal: No edema Skin: warm, dry, jaundice Neuro: Alert and oriented x3 Psych: Mood appropriate. Labs, Imaging, and Studies reviewed: Results from last 7 days Lab Units 06/14/19 1037 WBC K/mcL 7.28 HGB g/dL 11.6* HCT % 34.6* PLT K/mcL 172 Results from last 7 days Lab Units 06/14/19 1037 SODIUM mmol/L 137 POTASSIUM mmol/L 3.8 CHLORIDE mmol/L 104 BICARB mmol/L 21 BUN mg/dL 9 CREATININE mg/dL 0.43 EGFR mL/min/1.73 m2 138 GLUCOSE mg/dL 79 CALCIUM mg/dL 8.4 Results from last 7 days Lab Units 06/14/19 1037 ALT U/L 808* AST U/L 592* ALK PHOS U/L 183* BILIRUBIN TOTAL mg/dL 4.9* Results from last 7 days Lab Units 06/14/19 1037 INR 1.3* Associated attestation - Indra Pruitt MD - 06/14/2019 3:13 PM EDT I saw and evaluated the patient independently. Discussed case with Carli Sims PA-C. I personally reviewed their note and agree with their history, exam, and plan of care. All laboratory and images personally reviewed. Chart reviewed, including documentation from previous hospitalizations and data consultant recommendations as summarized below. Briefly, patient with history of amphetamine and heroine abuse. Presented with RUQ and jaundice. LFTs elevated. RUQ US with edematous GB wall, cannot exclude acalculous cholecystitis. No biliary dilation. Discussed with Aisha Hare CNP (GI). Plan for monitoring of LFTs and await viral hepatitis panel as this felt more likely then gall bladder pathology. No WBC count currently. May need MRCP pending viral studies per GI. Addendum: Hep A/B negative, hep c positive which is known per patient. Unlikely to cause acute liver injury. Discussed withDr. Garza (GI). Will obtain MRCP, depending level of pain and results may need HIDA scan in future.documented in this encounter Jackson Jain MD - 06/16/2019 10:43 AM EDTGrime, Aisha Mitchell CNP - 06/14/2019 10:05 AM EDT Consult Notes (unrecognized section and content) Associated Order(s): IP CONSULT TO GENERAL SURGERY Clinic Surgery Consult Note Patient Name: Tia Levin Admit Date: MR #: [id number] : 1990 Senior addendum 29 y/o F with ongoing IVDU and known hepatitis with elevated LFTs and gallbladder wall thickening on imaging. Gen surg consulted to r/o acalculous cholecystitis. Patient's pain, history, labs, and imaging findings all explained by hepatic inflammation. No suspicion for acalculous cholecystitis. Would not recommend any surgical intervention. Discussed with Dr. Leonard who agrees. Thank you for this consult. Please call with any further questions. Assessment and Plan: Tia Levin is a 29 y.o. female with a PMHx of PTSD, depression, hx of IVDU, Hepatitis C, and hx of presents to [facility] with jaundice and abdominal pain. -RUQ U/S 06/13: The gallbladder is contracted. Edematous gallbladder wall thickening is present measuring up to 1.5 cm in thickness. No stones are seen within the gallbladder. The common duct is normal measuring 6 mm. -CT AP and MRCP 06/13: Re-demonstration of diffuse periportal edema as well as significant circumferential gallbladder wall edema; Mild hepatosplenomegaly; No obvious gallstones. Negative for biliary or pancreatic ductal dilatation. Negative for choledocholithiasis -HIDA 06/14: Opacified liver with no visualization of the gallbladder, biliary tree, or small bowel. Although this appearance could theoretically raise concern for obstruction of the common bile duct, there is no evidence for this on the recent MRI. The findings are therefore most likely due to diffuse hepatocellular dysfunction. Acute Hepatitis Gallbladder Wall Thickening Hx of Hepatitis C Hx of IVDU -Afebrile, no leukocytosis WBC 6.48 -T.Bili/D.Bili 5.9/5.4, AST/ALT 544/825 -On regular diet -GI c/s recommending supportive care and obtaining serologic workup -Overall presentation more consistent with acute hepatitis with recent drug use and history of Hep C -No obvious stones visualized on MRCP and gallbladder edema likely secondary to hepatitis given hepatosplenomegaly on multiple imaging studies -Inconclusive HIDA likely due to hepatocellular dysfunction -Continue supportive care, no plans for cholecystectomy -d/w Dr. 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 Patient states she recently relapsed with IVDU (heroin). Patient states she never had issues with pain after PO intake in the past and never had similar symptoms in the past. Patient states she has noticed darkening of her urine and is still passing gas but has not had a BM in a few days. In addition she noticed slight yellowing of her skin as well. Patient is a 1/2 PPD smoker. Hx of cocaine, heroin, amphetamine abuse. History: Past Medical History: Diagnosis Date Anxiety Depression Infectious viral hepatitis hep c PTSD (Post-Traumatic Stress Disorder) Past Surgical History: Procedure Laterality Date SECTION, LOW TRANSVERSE 3 Family History Problem Relation Age of Onset Diabetes Father Cancer Maternal Grandmother Social History Socioeconomic History Marital status: Single Spouse name: Not on file Number of children: Not on file Years of education: Not on file Highest education level: Not on file Occupational History Not on file Social Needs Financial resource strain: Not on file Food insecurity Worry: Not on file Inability: Not on file Transportation needs Medical: Not on file Non-medical: Not on file Tobacco Use Smoking status: Current Every Day Smoker Packs/day: 0.50 Years: 10.00 Pack years: 5.00 Types: Cigarettes Smokeless tobacco: Never Used Substance and Sexual Activity Alcohol use: Not Currently Alcohol/week: 10.0 standard drinks Types: 10 Shots of liquor per week Frequency: 2-4 times a month Drinks per session: 10 or more Binge frequency: Monthly Drug use: Not Currently Types: Crack cocaine, Heroin Comment: Last use 04/28/2019 Sexual activity: Yes Partners: Male, Female control/protection: Condom Lifestyle Physical activity Days per week: Not on file Minutes per session: Not on file Stress: Not on file Relationships Social connections Talks on phone: Not on file Gets together: Not on file Attends church service: Not on file Active member of club or organization: Not on file Attends meetings of clubs or organizations: Not on file Relationship status: Not on file Other Topics Concern Not on file Social History Narrative Not on file Allergy Information: I have reviewed the patient's allergies. Patient has no known allergies. Home Medications: Outpatient Medications as of 06/16/2019 Medication Sig naltrexone microspheres (VivitroL) Inject 380 (three hundred eighty) mg into the shoulder, thigh, or buttocks every 30 (thirty) days . Current Medications: Scheduled Meds: gabapentin 300 mg Oral Q8H ARIANA lidocaine 1 patch Transdermal Daily Continuous Infusions: PRN Meds:acetaminophen, aluminum-magnesium hydroxide-simethicone, magnesium hydroxide, nalOXone AND Notify physician AND naloxone, ondansetron OR ondansetron, traMADoL Review of Systems: The following system(s) were reviewed and pertinent findings noted: All systems reviewed and negative other than noted in HPI. Constitutional:No fever, no weight loss Eyes:No diplopia ENT:No sinus drainage CV:No chest pain. No ankle swelling Resp:No dyspnea. No wheezing :No dysuria Neuro:No headache Integumentary:No skin rash MuscSkel:No arthralgias Endo:No polyuria Heme/lymphatic:No apparent lymphadenopathy Allergic/Immunologic:No hives Psych:No unusual mood swings Physical Examination: Vital Signs BP 92/60 Pulse 84 Temp 98.1 F (36.7 C) (Oral) Resp 16 Ht 5' 2 Wt 81.6 kg (180 lb) LMP 05/31/2019 (Within Days) SpO2 94% No BMI 32.92 kg/m Constitutional Awake, alert, oriented. No acute distress. HEENT Normocephalic, atraumatic. EOMI, vision grossly intact, no scleral icterus noted. Neck Trachea midline, soft. Cardiovascular Hemodynamically stable, palpable pulses throughout. Chest Non-labored breathing, equal chest rise. Abdomen Soft, epigastric and RUQ-tender, non-distended, no peritoneal signs, no CVA tenderness. Extremities Motor and sensory intact in all 4 extremities, no obvious deformity. Skin Warm, dry, intact, no jaundice. Neurologic: No focal deficits noted on exam. Laboratory and Additional Data Reviewed: Lab Results Component Value Date WBC 6.48 06/16/2019 HGB 12.9 06/16/2019 HCT 38.5 06/16/2019 MCV 86.9 06/16/2019 PLT 185 06/16/2019 Lab Results Component Value Date GLUCOSE 92 06/16/2019 CALCIUM 8.4 06/16/2019 NA 139 06/16/2019 K 4.3 06/16/2019 CL 103 06/16/2019 BUN 4 (L) 06/16/2019 CREATININE 0.32 (L) 06/16/2019 Lab Results Component Value Date ALT 825 (H) 06/16/2019 AST 544 (H) 06/16/2019 ALKPHOS 217 (H) 06/16/2019 BILITOT 5.9 (H) 06/16/2019 Lab Results Component Value Date INR 1.3 (H) 06/14/2019 PROTIME 15.5 (H) 06/14/2019 Images: All images reviewed. Associated attestation - Gurvinder Leonard MD - 06/16/2019 5:24 PM EDT I saw and evaluated the patient. I discussed the case with the resident/SCALP TREATMENT OPERATOR and agree with the findings and plan as documented in his/her note and/or any note I supplied. Associated Order(s): IP CONSULT TO GASTROENTEROLOGY GASTROENTEROLOGY CONSULT NOTE 4 Patient Name: Tia Levin Admit Date: MR #: [id number] : 1990 Physicians: Physician Judy (Family); Brie Moreno MD (Referring) Consult Ordered By: Franny Sims PA-C Assessment and Plan: Other Elevated LFTs Assessment & Plan 29yo F with PMHx IVDU and hepatitis C who presents from [facility] with elevated LFTs and imaging c/f possible acute cholecystitis. GI consulted for further evaluation. - LFTs: AP 255, AST/ALT 665/1116, TB 6.5 (normal 02/2019) - CT w IVC ([facility]): moderate GBW thickening w pericholecystic fluid and periportal edema; no cholelithiasis; nl CBD - RUQ U/S: contracted GB; no cholelithiasis; nonspecific GBW thickening w +Short's sign, cannot exclude acalculus cholecystitis; nl CBD - CBC, lactate, Amylase/Lipase normal - UDS: +cocaine and opiates - Acute hepatitis panel pending - Mentation intact. INR 1.2 IMP: 1. Elevated LFTs 2. Possible acalculus cholecystitis 3. History of IVDU 4. History of hepatitis C Clinical presentation and elevated LFTs c/f acute hepatitis in setting of IVDU. Possible acute acalculus cholecystitis on imaging. No biliary ductal dilation on imaging would suggest against choledocholithiasis. RECS: - f/u pending viral hepatitis panel - Trend LFTs - Supportive care - Pending viral hepatitis results, consider MRI/MRCP for further imaging or possible surgical evaluation for ?acute acalculus cholecystitis Chief Complaint/Reason for Visit: Jaundice Abdominal pain History of Present Illness: Tia Levin is a 29 y.o. female with PMHx significant for IVDU and hepatitis C who presents from [facility] with elevated LFTs and imaging c/f possible acute cholecystitis. GI consulted for further evaluation. Pt reports approx 1 week ago she began having back pain that moved to her upper abdomen primarily epigastric/RUQ region. She reports pain is constant and severe. She endorses nausea, bloating, and and lack of appetite. She reports fever with chills approx 7 days ago but not since then. She noted jaundice of skin and eyes as well as dark urine. She reports 5lb wt loss over past 1 week. She has hx of hepatitis A and C in 2018 which resolved. She denies any hx of treatment of Hep C. She endorses ongoing IVDU and states she last used Heroin yesterday AM. She also reports she has been in and out of group home over past 3mo. She denies EtOH. Denies NSAID and significant Tylenol use. Denies new medications, herbal supplements, or recent ATBx. She denies any known FH of liver disease or GI related malignancies. Current LFTs include: AP 255, AST/ALT 665/1116, TB 6.5 (of note were normal in 02/2019). [facility]a/p w [facility]C at [facility] demonstrated moderate GBW thickening w pericholecystic fluid and periportal edema; no cholelithiasis; nl CBD. RUQ U/S here showed contracted GB; no cholelithiasis; nonspecific GBW thickening w +Short's sign, cannot exclude acalculus cholecystitis; nl CBD. CBC, lactate, Amylase/Lipase all normal. UDS: +cocaine and opiates. Acute hepatitis panel pending. Mentation intact. INR 1.2. History: Past Medical History: Diagnosis Date Anxiety Depression Infectious viral hepatitis hep c PTSD (Post-Traumatic Stress Disorder) Past Surgical History: Procedure Laterality Date SECTION, LOW TRANSVERSE 3 Family History Problem Relation Age of Onset Diabetes Father defects Maternal Grandmother GI Specific Family History: No significant family history of GI malignancy or disorders Social History Socioeconomic History Marital status: Single Spouse name: Not on file Number of children: Not on file Years of education: Not on file Highest education level: Not on file Occupational History Not on file Social Needs Financial resource strain: Not on file Food insecurity Worry: Not on file Inability: Not on file Transportation needs Medical: Not on file Non-medical: Not on file Tobacco Use Smoking status: Current Every Day Smoker Packs/day: 0.50 Years: 10.00 Pack years: 5.00 Types: Cigarettes Smokeless tobacco: Never Used Substance and Sexual Activity Alcohol use: Not Currently Alcohol/week: 10.0 standard drinks Types: 10 Shots of liquor per week Frequency: 2-4 times a month Drinks per session: 10 or more Binge frequency: Monthly Drug use: Not Currently Types: Crack cocaine, Heroin Comment: Last use 04/28/2019 Sexual activity: Yes Partners: Male, Female control/protection: Condom Lifestyle Physical activity Days per week: Not on file Minutes per session: Not on file Stress: Not on file Relationships Social connections Talks on phone: Not on file Gets together: Not on file Attends church service: Not on file Active member of club or organization: Not on file Attends meetings of clubs or organizations: Not on file Relationship status: Not on file Other Topics Concern Not on file Social History Narrative Not on file Allergy Information: I have reviewed the patient's allergies. Patient has no known allergies. Home Medications: Outpatient Medications as of 06/14/2019 Medication Sig naltrexone microspheres (VivitroL) Inject 380 (three hundred eighty) mg into the shoulder, thigh, or buttocks every 30 (thirty) days . Review of Systems: All remaining ROS were reviewed and negative except those mentioned in the history of present illness Physical Examination: Vital Signs: Temp: [99.1 F (37.3 C)-100.5 F (38.1 C)] 99.1 F (37.3 C) Heart Rate: [86-87] 86 Resp: [16-18] 16 BP: (94-99)/(56-66) 99/66 CONSTITUTIONAL: Appropriate attention to grooming, normal body habitus, NAD HEENT: Normocephalic, atraumatic, sclera icteric CARDIAC: Regular rate & rhythm. LUNGS: Clear to auscultation anteriorly ABDOMEN: soft, non-distended, +BS, upper abdomen diffusely ttp w/o peritoneal signs SKIN: Jaundice NEURO: No asterixis PSYCHIATRIC: Normal insight, AAO x 3, normal affect/mood EXTREMITIES: No evidence of edema, cyanosis. Laboratory and Additional Data Reviewed: Laboratory 06/14/19 10:18 AM Radiology 06/14/19 10:18 AM Medications 06/14/19 10:18 AM Transcriptions 06/14/19 10:18 AM Invalid input(s): CO2, LABALBU Aisha Payam, MARK [facility] (for staff use only) Associated attestation - Austen Garza MD - 06/14/2019 12:23 PM EDT Gastroenterology Nurse Practitioner Attestation I have independently seen and examined the patient with the nurse practitioner. I have reviewed the available labs. I have reviewed the available imaging studies. Physical examination: CONSTITUTIONAL: Appropriate attention to grooming, normal body habitus, NAD HEENT: Normocephalic, atraumatic, nonicteric CARDIAC: regular rate & rhythm. LUNGS: Clear to auscultation anteriorly ABDOMEN: flat, negative hepatosplenomegaly, soft. Tender in the epigastrium. No rebound or guarding. SKIN: No jaundice, rashes NEURO: No asterixis PSYCHIATRIC: Normal insight, AAO x 3, normal affect/mood EXTREMITIES: No evidence of cyanosis, clubbing or edema. I agree with the assessment and plan as outlined below with the following additions/exceptions: Patient with fevers and abdominal pain and markedly abnormal LFT at OSH. Now improving milldy. Suspect viral etiology. However, with cocaine use, there could have been an ischemic component. Her symptoms and US would suggest a gallbladder etiology but her LFT would not be entirely consistent with gallbladder. For now, will continue to monitor LFT and await acute viral hepatitis panel. May need MRCP. Austen Garza documented in this encounter Quick Note - Dinorah Dudley TECHNOLOGIST - 06/14/2019 4:15 PM EDTQuick Note - Indra Pruitt MD - 06/14/2019 1:10 PM EDTPlan of Care - Isha Root RN - 06/14/2019 8:30 AM EDT Miscellaneous Notes (unrecog nized section and content) MRCP exam done by Aidan Dominguez Bryan B. Techs wore masks and gloves. Patient wore mask during whole exam. I saw and evaluated the patient independently. Discussed case with Carli Sims PA-C. I personally reviewed their note and agree with their history, exam, and plan of care. All laboratory and images personally reviewed. Chart reviewed, including documentation from previous hospitalizations and data consultant recommendations as summarized below. Briefly, patient with history of amphetamine and heroine abuse. Presented with RUQ and jaundice. LFTs elevated. RUQ US with edematous GB wall, cannot exclude acalculous cholecystitis. No biliary dilation. Discussed with Aisha Hare CNP (GI). Plan for monitoring of LFTs and await viral hepatitis panel as this felt more likely then gall bladder pathology. No WBC count currently. May need MRCP pending viral studies per GI. Addendum: Hep A/B negative, hep c positive which is known per patient. Unlikely to cause acute liver injury. Discussed withDr. Garza (GI). Will obtain MRCP, depending level of pain and results may need HIDA scan in future. Associated Problem(s): Elevated LFTs 29yo F with PMHx IVDU and hepatitis C who presents from [facility] with elevated LFTs and imaging c/f possible acute cholecystitis. GI consulted for further evaluation. - LFTs: AP 255, AST/ALT 665/1116, TB 6.5 (normal 02/2019) - CT w IVC ([facility]): moderate GBW thickening w pericholecystic fluid and periportal edema; no cholelithiasis; nl CBD - RUQ U/S: contracted GB; no cholelithiasis; nonspecific GBW thickening w +Short's sign, cannot exclude acalculus cholecystitis; nl CBD - MRCP: diffuse periportal edema and GB edema; mild hepatosplenomegaly; no choledocholithiasis; nl CBD/PD - CBC, lactate, Amylase/Lipase normal - UDS: +cocaine and opiates - Negative HAV/HBV. HCV Ab (doubt acute Hep C) - Mentation intact. INR 1.2 -Pending- AI markers, CMV/EBV studies IMP: 1. Elevated LFTs 2. History of IVDU 3. History of hepatitis C Clinical presentation and elevated LFTs s/f viral vs ischemic hepatitis (in setting of recent cocaine use). Possible acute acalculus cholecystitis on imaging Negative choledocholithiasis. HIDA scan not helpful given high Tbili. Surgery has evaluated and does not feel this is GB related. LFTs seem to have plateaued at this point. I think she can be discharged home. Needs weekly LFTs with results sent to our office, will arrange referral to [facility] hepatology as well for treatment of HCV. She should avoid ilicit drugs. Problem: Pain Goal: Manage acute pain Outcome: Partially Met Goal: Manage chronic pain Outcome: Partially Met Goal: Reduced pain sensation Outcome: Partially Met Goal: Achievement of comfort function goal Outcome: Partially Met Care plan initiated. documented in this encounter ED Attestation I was in the emergency department available for consultation documented in this encounter Adia Dillon, MARK - 08/13/2019 7:43 PM ALLENTAdia Elena RN - 08/13/2019 7:43 PM Jimena Barnes RN - 08/13/2019 7:38 PM EDT ED Notes (unrecognized secti on and content) ED PROVIDER NOTE [facility] EMERGENCY DEPARTMENT NAME: Tia Levin AGE: 29 y.o. : 1990 VISIT DATE: 08/13/2019 CSN: [id number] PCP: Physician No Chief Complaint Patient presents with Drug Overdose This is a 29-year-old female brought to the ER via EMS for evaluation. Time my exam patient is alert and oriented. She states she was in the [employer] parking lot bent over in her car using . She states she injects heroin a minimum of twice a day. She states that the police saw her bent over and assume she was passed out. To call EMS. She states she was never passed out she was alert when the police came and spoke to her and alert when EMS showed up. She was told that she was supposed to come to the ER to be checked out. Patient is never received any Narcan. Patient reports that she smokes a pack of cigarettes daily, denies alcohol or any illicit drug use she states that heroin is her drug of choice. Noted there are multiple track linton on all 4 limbs. She is not in any respiratory distress, she does not appear toxic or in any other acute distress. She has no complaints. She is denying headache, pharyngitis, fever, chest pain, shortness of breath, nausea, vomiting, diarrhea or abdominal pain. She reports she had her period approximately a month ago. She has no complaints Past Medical History: Diagnosis Date Anxiety Depression Infectious viral hepatitis hep c PTSD (Post-Traumatic Stress Disorder) Past Surgical History: Procedure Laterality Date SECTION, LOW TRANSVERSE 3 Family History Problem Relation Age of Onset Diabetes Father Cancer Maternal Grandmother Social History Socioeconomic History Marital status: Single Spouse name: Not on file Number of children: Not on file Years of education: Not on file Highest education level: Not on file Occupational History Not on file Social Needs Financial resource strain: Not on file Food insecurity Worry: Not on file Inability: Not on file Transportation needs Medical: Not on file Non-medical: Not on file Tobacco Use Smoking status: Current Every Day Smoker Packs/day: 0.50 Years: 10.00 Pack years: 5.00 Types: Cigarettes Smokeless tobacco: Never Used Substance and Sexual Activity Alcohol use: Not Currently Alcohol/week: 10.0 standard drinks Types: 10 Shots of liquor per week Frequency: 2-4 times a month Drinks per session: 10 or more Binge frequency: Monthly Drug use: Yes Types: Crack cocaine, Heroin, IV Comment: Last use 04/28/2019 Sexual activity: Yes Partners: Male, Female control/protection: Condom Lifestyle Physical activity Days per week: Not on file Minutes per session: Not on file Stress: Not on file Relationships Social connections Talks on phone: Not on file Gets together: Not on file Attends church service: Not on file Active member of club or organization: Not on file Attends meetings of clubs or organizations: Not on file Relationship status: Not on file Other Topics Concern Not on file Social History Narrative Not on file Previous Medications Medication Sig naltrexone microspheres (VivitroL) Inject 380 (three hundred eighty) mg into the shoulder, thigh, or buttocks every 30 (thirty) days . (Patient not taking: Reported on 06/20/2019 .) No Known Allergies Review of Systems Constitutional: Negative. HENT: Negative. Eyes: Negative. Respiratory: Negative. Cardiovascular: Negative. Gastrointestinal: Negative. Endocrine: Negative. Genitourinary: Negative. Musculoskeletal: Negative. Skin: Negative. Neurological: Negative. Psychiatric/Behavioral: Negative. Patient Vitals for the past 24 hrs: BP Temp Temp src Pulse Resp SpO2 Height Weight 08/13/191941 98.6 F (37 C) Oral 5' 3 79.4 kg (175 lb) 08/13/191939 (!) 156/60 (!) 138 16 98 % Physical Exam Vitals signs and nursing note reviewed. Exam conducted with a diesel service journeyman present (Nurses at the bedside). Constitutional: General: She is awake. She is not in acute distress. Appearance: Normal appearance. She is well-developed and normal weight. She is not ill-appearing, toxic-appearing or diaphoretic. HENT: Head: Normocephalic and atraumatic. Right Ear: External ear normal. Left Ear: External ear normal. Nose: Nose normal. Mouth/Throat: Mouth: Mucous membranes are moist. Pharynx: Oropharynx is clear. Eyes: Conjunctiva/sclera: Conjunctivae normal. Pupils: Pupils are equal, round, and reactive to light. Comments: Pupils are dilated but reactive Neck: Musculoskeletal: Normal range of motion and neck supple. Cardiovascular: Rate and Rhythm: Regular rhythm. Tachycardia present. Pulses: Normal pulses. Heart sounds: Normal heart sounds. Pulmonary: Effort: Pulmonary effort is normal. Breath sounds: Normal breath sounds. Abdominal: General: Abdomen is flat. Bowel sounds are normal. Palpations: Abdomen is soft. Musculoskeletal: Normal range of motion. Skin: General: Skin is warm. Capillary Refill: Capillary refill takes less than 2 seconds. Comments: Multiple track notes noted in all limbs Neurological: Mental Status: She is alert and oriented to person, place, and time. Psychiatric: Mood and Affect: Mood normal. Behavior: Behavior normal. Behavior is cooperative. Laboratory & Radiographic Imaging (if done): No results found for this visit on 08/13/19. No orders to display Procedures MDM Number of Diagnoses or Management Options Diagnosis management comments: Patient is alert and oriented. There was no evidence of respiratory depression. Patient reports she took her normal amount of heroin did not increase her dose. States she does inject twice a day. She is fourth right and coming with the information. She adamantly denies being passed out in her car. There is no record of her receiving Narcan. Discussed with patient that I did not believe she needed any additional testing. And that she could be discharged into the care of police. She is amenable to this plan The patient has been informed that they may have pre-hypertension or hypertension based on a blood pressure reading in the Emergency Department. I recommend that the patient call the primary care provider listed on their discharge instructions or a physician of their choice as soon as possible to arrange follow-up in the next 4 weeks for further evaluation of possible pre-hypertension or hypertension. . Clinical Impression: 1. Heroin abuse (HCC) ED Disposition ED Disposition Condition Comment Discharge Stable Tia Levin discharged to home/self care in stable condition. Follow-up Information 1. Wayne Rangel MD. Specialty: Emergency Medicine Why: Dr. Yadav is noted in the community for helping people with drug addiction. [address] [facility] [address] Contact information for after-discharge care Follow-up information has not been specified. Adia Dillon CNP 08/13/191948 Pt brought in by [facility], states she was found by [employer] unresponsive in her vehicle. EMS report when they arrived she was alert and oriented x4 no treatment was initiated. Pt states she was never unresponsive, states she was bent over in her car shooting heroin into her lower leg. States she was awake when [employer] walked up to her car. Upon arrival pt is Alert and oriented x4 answering all questions appropriately. Bed: 15 Expected date: Expected time: Means of arrival: Comments: MFD R2 OVERDOSE documented in this encounter INFORMATION SOURCE (unrecogn ized section and content) DATE CREATED AUTHOR 08/21/2019 Joslyn Mathis [facility] DATE CREATED AUTHOR 'S ORGANIZ ATION 02/15/2021 [facility] DATE CREATED AUTHOR AUTHOR'S ORGANIZ ATION 05/18/2021 [facility] DATE CREATED AUTHOR AUTHOR[facility]S [facility]IZ AT[facility] DATE CREATED AUTHOR AUTHOR'S ORGANIZ ATION 07/09/2021 [facility] DATE CREATED AUTHOR AUTHOR'S ORGANIZ ATION 07/05/2022 [facility] DATE CREATED AUTHOR AUTHOR'S ORGANIZ ATION 05/10/2023 [facility] DATE CREATED AUTHOR AUTHOR'S ORGANIZ ATION 05/14/2023 [facility] Ordered Prescriptions (unrec ognized section and content) Prescription Sig Dispensed Refills Start Date End Da te azithromycin (ZITHROMAX) 250 MG tabletIndications:Atypica l pneumonia Take 1 tablet by mouth daily for 4 days 4 tablet 0 03/26/2020 03/30/2020 Prescription Sig Dispensed Refills Start Date End Da te sodium chloride (OCEAN) 0.65 % nasal spray 1 spray by Nasal route as needed for Congestion 1 each 0 11/07/2020 brompheniramine-pseudoep hedrine-DM 2-30-10 MG/5ML syrup Take 5 mLs by mouth 3 times daily as needed for Congestion or Cough 100 mL 0 11/07/2020 11/12/2020 Prescription Sig Dispensed Refills Start Date End Da te mupirocin (BACTROBAN) 2 % ointment Apply topically 3 times daily. 3 g 0 03/23/2021 03/30/2021 sulfamethoxazole-trimet hoprim (BACTRIM DS) 800-160 MG per tablet Take 1 tablet by mouth 2 times daily for 10 days 20 tablet 0 03/23/2021 04/02/2021 metroNIDAZOLE (FLAGYL) 500 MG tablet Take 1 tablet by mouth 3 times daily for 10 days 30 tablet 0 03/23/2021 04/02/2021 Prescription Sig Dispensed Refills Start Date End Da te amoxicillin (AMOXIL) 500 MG capsule Take 1 capsule by mouth 2 times daily for 10 days 20 capsule 0 07/22/2021 08/01/2021 Prescription Sig Dispensed Refills Start Date End Da te brompheniramine-pseudoe phedrine-DM (BROMFED DM) 2-30-10 MG/5ML syrup Take 5 mLs by mouth 4 times daily as needed for Congestion or Cough 240 mL 1 10/12/2021 11/11/2021 albuterol sulfate HFA (VENTOLIN HFA) 108 (90 Base) MCG/ACT inhaler Inhale 2 puffs into the lungs 4 times daily as needed for Wheezing 18 g 0 10/12/2021 predniSONE (DELTASONE) 50 MG tablet Take 50mg po qd x 5 days QS for 5 days 5 tablet 0 10/12/2021 Prescription Sig Dispensed Refills Start Date End Da te ibuprofen (ADVIL;MOTRIN) 800 MG tablet Take 1 tablet by mouth every 8 hours as needed for Pain 30 tablet 0 05/11/2022 cyclobenzaprine (FLEXERIL) 10 MG tablet Take 1 tablet by mouth 3 times daily as needed for Muscle spasms 9 tablet 0 05/11/2022 05/21/2022 Prescription Sig Dispensed Refills Start Date End Da te diclofenac (VOLTAREN) 75 MG EC tablet Take 1 tablet by mouth 2 times daily as needed for Pain 20 tablet 0 05/19/2022 clindamycin (CLEOCIN) 300 MG capsule Take 1 capsule by mouth 3 times daily for 7 days 21 capsule 0 05/19/2022 05/26/2022 Prescription Sig Dispensed Refills Start Date End Da te bacitracin 500 UNIT/GM ointment Apply topically 2 times daily. 14 g 0 09/04/2022 09/14/2022 diclofenac (VOLTAREN) 75 MG EC tablet Take 1 tablet by mouth 2 times daily as needed for Pain (please take with food) 20 tablet 0 09/04/2022 amoxicillin-clavulanate (AUGMENTIN) 875-125 MG per tablet Take 1 tablet by mouth 2 times daily for 7 days 14 tablet 0 09/04/2022 09/04/2022 mupirocin (BACTROBAN) 2 % ointment Apply topically 3 times daily. 3 g 0 09/04/2022 09/04/2022 Prescription Sig Dispensed Refills Start Date End Da te amoxicillin (AMOXIL) 500 MG capsule Take 1 capsule by mouth 3 times daily for 10 days 30 capsule 0 05/10/2023 05/20/2023 Scheduled Active and Recently Administ ered Medications (unrecognized section and content) Medication Order 12/25/2020 12/26/2020 12/27/2020 ketorolac (TORADOL) injection 30 mg (COMPLETED) 30 mg, IntraMUSCular, ONCE, On 12/27/20 at 1930, For 1 dose, Do not administer for more than 5 days. 2007 (Given - Provid er: Norma Stark RN) Scheduled Medication Order 10/10/2021 10/11/2021 10/12/2021 ipratropium-albuterol (DUONEB) nebulizer solution 1 ampule (COMPLETED) 1 ampule, Nebulization, ONCE, 1 dose, On Tue10/12/21 at 1830, Initiate RT Bronchodilator Protocol: Yes - Inpatient Protocol 1830 (Given - Provid er: Susan Zuniga RCP) predniSONE (DELTASONE) tablet 60 mg (COMPLETED) 60 mg, Oral, ONCE, 1 dose, On Tue10/12/21 at 1830 183 (Given - Provid er: Zayda Beck RN) Scheduled Medication Order 05/09/2022 05/10/2022 05/11/2022 HYDROcodone-acetaminophen (NORCO) 5-325 MG per tablet 2 tablet (COMPLETED) 2 tablet, Oral, ONCE, 1 dose, On Tue05/11/22 at 1945, Maximum dose of acetaminophen is 4000 mg from all sources in 24 hours. 1941 (Given - Provid er: Briana Burleson RN) ketorolac (TORADOL) injection 60 mg (COMPLETED) 60 mg, IntraMUSCular, ONCE, 1 dose, On Tue05/11/22 at 2130, Do not administer for more than 5 days. 2135 (Given - Provid er: Melvi Conner RN) orphenadrine (NORFLEX) injection 60 mg (COMPLETED) 60 mg, IntraMUSCular, ONCE, 1 dose, On Tue05/11/22 at 2130 2135 (Given - Provid er: Melvi Conner RN) Scheduled Medication Order 05/17/2022 05/18/2022 05/19/2022 ketorolac (TORADOL) injection 30 mg (COMPLETED) 30 mg, IntraMUSCular, ONCE, 1 dose, On Tue05/19/22 at 2015, Do not administer for more than 5 days. 2012 (Given - Provid er: Juliana Stewart RN) orphenadrine (NORFLEX) injection 60 mg (COMPLETED) 60 mg, IntraMUSCular, ONCE, 1 dose, On Tue05/19/22 at 2014 2013 (Given - Provid er: Juliana Stewart RN) PRN Medication Order 05/17/2022 05/18/2022 05/19/2022 lidocaine viscous hcl (XYLOCAINE) 2 % solution 15 mL 15 mL, Mouth/Throat, EVERY 3 HOURS PRN, Starting on Tue05/19/22 at 2002, Until Discontinued, Irritation 2013 (Given - Provid er: Juliana Stewart RN) Scheduled Medication Order 09/02/2022 09/03/2022 09/04/2022 ketorolac (TORADOL) injection 60 mg (COMPLETED) 60 mg, IntraMUSCular, ONCE, 1 dose, On 09/04/22 at 1230, Do not administer for more than 5 days. 1225 (Given - Provid er: Briana Burleson RN) Care Teams (unrecognized sec tion and content) Echocardiography Radiology Technologist Relationship Specialty Start Date End Date No, Physician [facility] PCP - General 12/29/20 Germania Galaviz CNP [address] [place] [id number] Nurse Practitioner Obstetrics/Gynecology 11/01/19 Echocardiography Radiology Technologist Relationship Specialty Start Date End Date No, Physician [facility] PCP - General 12/29/20 Germania Galaviz, MARK [address] [place] [address] Nurse Practitioner Obstetrics/Gynecology 11/01/19 Echocardiography Radiology Technologist Relationship Specialty Start Date End Date Farhat Vang MD [address] [facility] [address] [place] [address] PCP - General Family Medicine 04/16/21 Germania Galaviz, AUTO PARTS CLERK [address] [place] [address] Nurse Practitioner Obstetrics/Gynecology 11/01/19 Radha Pantoja MD [address] [place] [address] Steam Plant Records Clerk Obstetrics/Gynecology 02/02/21 Yvonne Santos MD [address] [place] [address] Steam Plant Records Clerk Obstetrics/Gynecology 02/02/21 Regla Dias, [facility] [address] [place] [address] Home Theater Installer Obstetrics/Gynecology 02/02/21 Echocardiography Radiology Technologist Relationship Specialty Start Date End Date Farhat Vang MD [address] [address] PCP - General Family Medicine 04/16/21 Germania Galaviz, AUTO PARTS CLERK [address] [place] [address] Nurse Practitioner Obstetrics/Gynecology 11/01/19 Radha Pantoja MD [address] [place] [address] Steam Plant Records Clerk Obstetrics/Gynecology 02/02/21 Yvonne Santos MD [address] [place] [address] Steam Plant Records Clerk Obstetrics/Gynecology 02/02/21 Regla Dias, [facility] [address] [place] [address] Home Theater Installer Obstetrics/Gynecology 02/02/21 Echocardiography Radiology Technologist Relationship Specialty Start Date End Date Farhat Vang MD [address] [facility] [address] [place] [address] PCP - General Family Medicine 04/16/21 Germania Galaviz, [employer] [address] [place] [address] Nurse Practitioner Obstetrics/Gynecology 11/01/19 Radha Pantoja MD [address] [place] [address] Steam Plant Records Clerk Obstetrics/Gynecology 02/02/21 Yvonne Santos MD [address] [facility] [address] [place] [address] Steam Plant Records Clerk Obstetrics/Gynecology 02/02/21 Regla Dias, CN [address] [facility] [address] [place] [address] Home Theater Installer Obstetrics/Gynecology 02/02/21 Echocardiography Radiology Technologist Relationship Specialty Start Date End Date Linda Sheppard DO [address] [facility] [address] PCP - General Family Medicine 09/04/22 Echocardiography Radiology Technologist Relationship Specialty Start Date End Date Linda Sheppard DO [address] [place] [address] PCP - General Family Medicine 09/04/22 FOR RECORDS PERTAINING TO PATIENTS WHO ARE OR HAVE BEEN ENROLLED IN A CHEMICAL DEPENDENCY/SUBSTANCEABUSE PROGRAM, SOME INFORMATION MAY BE OMITTED. This clinical summary was aggregated from multiple sources. Caution should be exercised in using it in the provision of clinical care. This summary normalizes information from multiple sources, and as a consequence, information in this document may materially change the coding, format and clinical context of patient data. In addition, data may be omitted in some cases. CLINICAL DECISIONS SHOULD BE BASED ON THE PRIMARY CLINICAL RECORDS. [employer] [facility] provides no warranty or guarantee of the accuracy or completeness of information in this document.
== END 2023-05-20 09:22 | disposition home or self-care (01) ==
LOC: NOMS 09:21
PROVIDERS: Visit Provider Obstetrics & Gynecology
DX: N92.6 Irregular menstruation, unspecified (principal); O30.001 Twin pregnancy, unspecified number of placenta and unspecified number of amniotic sacs, first trimester; Z3A.01 Less than 8 weeks gestation of pregnancy
CPT/HCPCS: 76817

== ENCOUNTER 2023-06-09 10:18 | Outpatient (OUT) | payer BC, SELFPAY ==
--- OUTSIDE RECORDS SUMMARY | 2023-06-09 10:26 | XMS_ITS | CCD ---
Author Organization [facility] Care Team Providers Care City Collector Name Role Phone Unavailable Primary Care Provider Unavailabl e No, Physician Primary Care Provider Unavailabl e HODA MADERA Unavailable Unavailable Primary Care Provider Unavailabl e No, Physician Primary Care Provider Unavailabl Germania Becerra Unavailable Roslyn Stevenson Unavailable Radha Pantoja Unavailable [...] MD Unavailable Larissa CNM, Regla Corina Unavailable Germania Galaviz CNP Unavailable No, Physician Primary Care Provider Unavailabl e NO, PHYSICIAN Primary Care Unavailable NO, PHYSICIAN Primary Care Unavailable NO, PHYSICIAN Primary Care Unavailable GERMANIA VALENTINO Admitting Unavai lable NO, PHYSICIAN Primary Care Unavailable NO, PHYSICIAN Primary Care Unavailable NO, PHYSICIAN Primary Care Unavailable GERMANIA VALENTINO Admitting Unavai lable NO, PHYSICIAN Primary Care Unavailable YVONNE SANTOS Admitting Unavailable Scarlett PEDRAZA, Radha Bosch Unavailable Yvonne Santos MD Unavailable [phone] Larissa KHOURY, Regla Corina Unavailable Ciera PEDRAZA, Narcis Dawit [...] PAPADOPOL, NARCIS DAWIT Primary Care Unavaila ble ZELDA BAUTISTA Attending Unavailable NO, PHYSICIAN Primary Care Unavailable LELO GALLEGOS Attending Unavailable NO, PHYSICIAN Primary Care Unavailable HOLLAND ANN Attending Unavail able GERMANIA VALENTION Referring Unavai lable NO, PHYSICIAN Primary Care [...] Care Provider UnavailLinda Marie Primary Care Physician ELIANA ., DR GRANADOS Consulting Unavailable ELIANA ., DR GRANADOS Admitting Unavailable ELIANA ., DR GRANADOS Attending Unavailable ELIANA ., DR GRANADOS Consulting Unavailable ELIANA ., DR GRANADOS Admitting Unavailable ELIANA ., DR GRANADOS Attending Unavailable ELIANA ., DR GRANADOS Admitting Unavailable ELIANA ., DR GRANADOS Attending Unavailable ELIANA ., DR GRANADOS Attending Unavailable ELIANA ., DR GRANADOS Consulting Unavailable ELIANA ., DR GRANADOS Admitting Unavailable BETTYE DANIELS Consulting Unavailable Linda Sheppard DO Primary Care Provider [phone] ALLEGRA QUINN Attending Unavailable MARK DUMONT Referring Unavailable LINDA SHEPPARD Primary Care Unavailable MARK DUMONT Referring Unavailable LINDA SHEPPARD Primary Care Unavailable LINDA SHEPPARD Primary Care Unavailable DIAB hKushi DINH~[id number] STEVIE Attendi rex Unavailable DIAB Khushi DINH~[id number] STEVIE Attendi ng Unavailable CHET BERUMEN Attending [...] day(s), # 14 tab(s), Refills(s) 0, Pharmacy: [facility], 160, cm, 05/11/23 21:53:00 EST, Height/Length [...] oral solution (2 sources) alpha-Adrenergic Agonist, Uncompetitive P-dhyqjh-S-aspartat e Receptor Antagonist, Sigma-1 Agonist Start: 10-12-2021 [...] three times daily as needed for cough mnupzmhwoyuqajd-xjojnpzfoigfuol-PT 2-30- 10 MG/5ML syrup Take 5 mLs [...] 0, (swish and spit; do not swallow), [facility], 160, cm, 05/11/23 21:53:00 EST, Height/Length Dosing, 110, kg, 03/06/24 21:53:00 EST, Weight Dosing Start Date: 05/11/23 [...] Active Dextromethorphan / guaiFENesin (2 sources) Uncompetitive A-rfeuka-W-asparta te Receptor Antagonist, Sigma-1 Agonist End: 06-24-2020 [...] day(s), # 15 tab(s), Refills(s) 0, Pharmacy: [facility], 160, cm, 05/13/23 11:33:00 EST, Height/Length [...] for Pain. 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 She does not have an appointment for ADVERTISING MANAGER to next week. She has no OB [...] day(s), # 15 tab(s), Refills(s) 0, Pharmacy: [facility], 160, cm, 05/13/23 11:33:00 EST, Height/Length [...] Oral, q6hr Follow-up With When Contact Information [facility] In 3 days 05/16/2023 EDT [address] [place] [address] [facility] (1) Additional Instructions: Dentistry follow-up Patient Education [...] made to ensure accuracy, however, inadvertently computerized oyster farmer mistakes may be present. Appropriate healthcare PPE was used in evaluating this patient. Problem List/Past Medical History Ongoing Acute hepatitis C Anxiety Apnea, sleep Dental caries PCOS (polycystic ovarian syndrome) Historical No qualifying data Procedure/Surgical History Delivery. Medications Inpatient ampicillin-sulbacta m additive + Sodium Chloride 0.9% intravenous solution 100 (more content not included)... [facility] Comment on above: Result Comment: Elec tronically Signed By: Greg Stratton PA-C\.br\Date and Time Signed: 05/13/23 12:45 EST\.br\Electronically Co-Signed By: Jonathan Martinez DO\.br\Date and Time Co-Signed: 05/14/23 07:40 EST Consent for Treatmenton Consent for Treatment [id number] EC#1.00TIFF [facility] Discharge Instructionson Discharge Instructions [id number] 53#1.00TIFF [facility] ED Clinical Summaryon 2023 ED Clinical Summary [address] [address] ED Clinical Summary Person Information Name: TIA MONROE/[place] Age: 33 Years : 1990 Sex: Female Language: Gambian PCP: Linda Sheppard DO Marital Status: Visit [...] 13:02:19 05/13/2023 13:02:19 05/13/2023 13:02:19 AD[address]ESS: [address] [facility] [id number] PHYS DOC NOTES: MEDICAL INFORMATION: Prescriptions Given: New Medications [facility], [address], [place] [id number], [phone] oxycodone (oxyCODONE 5 mg Tab) 1 Tablets [...] Dental Abscess Follow up: With: Address: When: [place] [phone] Business (1) In 3 days 05/16/2023 Comments: Dentistry follow-up DIAGNOSIS: Dental abscess [facility] ED Patient Education Noteon 05-13-2023 ED Patient [...] these instructions at home: Medicines ? Take jkzj-gil-vkhddnc and prescription medicines only as told by [...] mouth. ? (more content not included)... [facility] ED Patient Summaryon 024 ED Patient Summary [address] [address] Patient Discharge Instructions Person Information Name: TIA MONROE Age: 33 Years Arrival Date: 05/13/2023 11:19:01 Discharge Diagnosis: Dental abscess Primary Care Physician: Linda Sheppard DO Provider Information Primary Provider: Jonathan Martinez DO Advanced Typing Checker:Greg Stratton PA-C The exam and treatment you received in the Emergency Department were for an urgent problem and are not intended as complete care. It is important that you follow up with a doctor, nurse practitioner, or physician?s real estate legal assistant for ongoing care. If your symptoms become worse or you do not improve as expected and you are unable to reach your usual health care provider, you should return to the Emergency Department. We are available 24 hours a day. TIA MONROE has been given the following list of patient education materials, prescriptions and follow-up instructions: Follow-up Instructions: With: Address: When: A[facility]z [address] [phone] Business (1) In 3 days 05/16/2023 Comments: Dentistry follow-up In the event that this physician does not participate in your insurance network, please consult with your insurance company to find a nearby participating provider. Patient Education Materials: Dental Abscess A MESSAGE TO ALL PATIENTS REGARDING OPIOIDS PRESCRIPTION OPIOIDS: WHAT YOU NEED TO KNOW Prescription opioids can be used to help relieve derdyexx-jo-aqdjcq pain and are often prescribed following a [...] be struggling with addiction, tell your health career technical education teacher and ask for guidance or call [facility] National Helpline at 9-169-6 (more content not included)... [facility] Discharge Instructionson Discharge Instructions [id number] 819#1.00TIFF [facility] ED Clinical Summaryon 2023 ED Clinical Summary [place] [id number] ED Clinical Summary Person Information Name: TIA MONROE Maria Elena/[facility] Age: 33 Years : 1990 Sex: Female Language: Gambian PCP: Linda Shpepard DO Marital Status: Visit Id: Visit Reason: [...] 23:59:00 05/11/2023 23:59:00 05/11/2023 23:59:00 ADDRESS: [address] [facility] [facility] [id number] PHYS DOC NOTES: MEDICAL INFORMATION: Prescriptions Given: New Medications [facility], [address], [place] [id number], [phone] amoxicillin-clavula cindi (Augmentin 875 mg oral tablet) [...] Medication PATIENT EDUCATION INFORMATION: Instructions: Dental Pain, Nlfe-yz-Gxel Follow up: With: Address: When: Linda Sheppard DO, Amelie C, [facility] [address] [place] [address] In 3 days 05/14/2023 DIAGNOSIS: 1:Pain, dental; 2:Infected dental caries; 3:First trimester ; Periapical abscess without sinus [facility] ED Note-Physicianon 05-12-19 ED Note-Physician Basic Information Time Seen: Violet Walters PA-C 05/11/2023 22:59 Chief Complaint pt arrives for c/o dental pain on the right upper side. states cannot see her denitist d/t being . pt states seen in [place] [facility] and started on amoxcillin. History of Present Illness Patient is a 7-week 33-year-old female with history of PCOS that presents to the ED with her for evaluation of dental pain. Patient says pain started on Tuesday. She localizes it to the right upper jaw, radiates into her face ear and cheek. She went to [facility] yesterday and was initiated on amoxicillin [...] day(s), # 14 tab(s), Refills(s) 0, Pharmacy: [facility], 160, cm, 05/11/23 21:53:00 EST, Height/Length Dosing, 110, kg, 05/11/23 21:53:00 EST, Weight Dosing chlorhexidine topical, 0.018 gm, 15 mL, Oral, BID, 480 mL, Refill(s) 0, (swish and spit; do not swallow), [facility], 160, cm, 05/11/23 21:53:00 EST, Height/Length Dosing, 110, kg, 05/11/23 21:53:00 EST, Weight Dosing (more content not included)... [facility] Comment on above: Result Comment: Elec tronically [...] these instructions at home: Medicines ? Take xddu-dku-piuzkvi and prescription medicines only as told by [...] to the area. Brushing your teeth ? [place] your teeth twice a day using a [...] when you eat or drink. ? Take xzwn-mir-iocdkwq and prescription medicines only as told by [...] Reviewed: 11/26/2020 Elsevier Patient Education ? 2022 [employer] [facility] ED Patient Summaryon 024 ED Patient Summary [address] [address] Patient Discharge Instructions Person Information Name: TIA MONROE Age: 33 Years Arrival Date: 05/11/2023 21:25:54 Discharge Diagnosis: 1:Pain, dental; 2:Infected dental caries; 3:First trimester ; Periapical abscess without sinus Primary Care Physician: Linda Sheppard DO Provider Information Primary Provider: Zac Fields M.D. Advanced Typing Checker:Violet Walters PA-C The exam and treatment you received in the Emergency Department were for an urgent problem and are not intended as complete care. It is important that you follow up with a doctor, nurse practitioner, or physician?s real estate legal assistant for ongoing care. If your symptoms [...] Instructions: With: Address: When: Linda Sheppard DO [address], [address], [facility] [address] [place] [address] In 3 days 05/14/2023 In the event that this physician does not participate in your insurance network, please consult with your insurance company to find a nearby participating provider. Patient Education Materials: Dental Pain, Besp-kw-Hbjs A MESSAGE TO ALL PATIENTS REGARDING OPIOIDS PRESCRIPTION OPIOIDS: WHAT YOU NEED TO KNOW Prescription opioids can be used to help relieve nrbfopkj-eg-uzrwge pain and are often prescribed following a [...] be struggling with addiction, tell your health career technical education teacher an (more content not included)... [facility] Consent for Treatmenton Consent for Treatment [id number] 96#1.00TIFF [facility] Progesteroneon 12-28-2022 Progesterone 12.60 ng/mL Normal [facility] Comment on above: Result Comment: Female: Follicular phase <0.19 ng/mL Ovulation phase 0.06-4.14 ng/mL Luteal phase 4.11-14.5 ng/mL Postmenopausal <0.13 ng/mL Performed By: #### P NICKY #### [place] [address] [place] [address] Accredited Pharmacy Technician: Thor Hernández MD Progesteroneon 11-24-2022 Progesterone 7.18 ng/mL High 0.0-0.15 [facility] Comment on above: Result Comment: Female: Follicular phase <0.19 ng/mL Ovulation phase 0.06-4.14 ng/mL Luteal phase 4.11-14.5 ng/mL Postmenopausal <0.13 ng/mL Performed By: #### P NICKY #### [place] [address] [place], [place] [id number] Accredited Pharmacy Technician: Thor Hernández MD HCG, ,Urineon 09-04 Beta HCG ( test) Ql (U) Negative Normal NEG [facility] Comment on above: Performed By: #### U HCG #### [facility] [address] [place] [address] Accredited Pharmacy Technician: Guero Sandoval MD , Urineon HCG ( test) Ql (U) Negative NEGATIVE [facility] XR ANKLE RIGHT (MIN 3 VIEWS) [...] Bettye Johnson MD 09/04/22 Final result Normal [facility] [place] FINDINGS/IMPRESSION : No acute displaced fracture identified. Ankle mortise is symmetric. There is a 1 mm tiny calcified body which is remote appearing near the distal fibular tip. Minimal ankle soft tissue edema. [facility] EXAM: XR ANKLE RIGHT (MIN 3 VIEWS) INDICATION: Reason for exam:->swelling COMPARISON: None. TECHNIQUE: Radiographs as described above [facility] Bettye Johnson MD - 09/04/2022 EXAM: XR ANKLE RIGHT (MIN 3 VIEWS) INDICATION: Reason for exam:->swelling COMPARISON: None. TECHNIQUE: Radiographs as described above IMPRESSION: FINDINGS/IMPRESSION : No acute displaced fracture identified. Ankle mortise is symmetric. There is a 1 mm tiny calcified body which is remote appearing near the distal fibular tip. Minimal ankle soft tissue edema. [facility] Radiology Study observation (narrative) [facility] XR ANKLE RIGHT (MIN 3 VIEWS) Ordered By: Bettye Johnson on 09-04-2022 [facility] Work Phone: Coding Summary.on 07-09-2022 Coding Summary. CD:[id number] bWw+PGhlYWQ+RP9AMDP bY18zsKAskV1eX2LGKX lOSywgQVBQTElOSyIgb jHkCF9gyUTlZHFk IC8+GO8wWRQoTsfxwZJ ij2Z4iCK6O97alu9fEC dfkRA8HNDgAwIphsheh 8qqoHu8MVpmTqzxGnNs AMXasB61EKQ3xP13Ej7 3eVIwvVHzy7pryEz7Px YhDYFeEYM9tFxkRRydi 2XxCLIeN57msKGcm1Y9 IGNvbGxhcHNlOyBlbXB 8nM3iBQjevvonr2rbnd uxMkk8ea18sJPrw9R8a PS2L5MhbsN0ZHAglGNd BjqbeTUYxK1ikhgkl3q buwdsWePhHWThPLg2SD k2TLNtnUxvFyBgAF59V VL0KRPtfbPpM3DcHKSo dXzcFmJ8j5W1Sl9JN8C HYvzxL6NBLYKFSKauxS Q+JC82bt76F6FnRcuhM xi5TOCxYGF7zKY5oP4b KIMgEEbxa4X3rKB1U2O sklYrha3rk4zhUYXmMP ypT50lcBQsw1W2VYLfw MI8RTOuzRukFqFvcY51 Oyc+VKFvkZnhe5MiQhg zy8uxv7zinMg2VktlGN SeowKtkZbjGEG7m1QnL j2iAESjzDN1tSZ5kQ7b IiCaUwT7RWrnO514TjC rgZAhGouwZ23pR2MpjY A+EZTaQin7OYLkeKzvR L9vW3UoRKPgtujnaWHp vGumHL0zOAKpbcyiPBZ jnM5rVOMxC9j9PtQkYk K1LSphS0WnILQkttqpR d74mF0qUuRjIhP7CCke H2KvivR4MYXvxHSaHUz iUKJ1B34yl0Z5JHAqIW HiIUF1rVS3mH2obMsso jogbGVmdDsgdmVydGlj YUtvVSyuF293CQRvyWq nPkNvZGluZyBEYXRlOi AgMDUvMDUvMjAyMzwvd GQ+OBQpJKR7yBwrICWd nNBgZXqjRb0zkHcnpLk hDJ7aTNHlufknSBFcgH 8tMGCpqRQnuGohWN5mO XXufewxc776XlUqNUF1 MXSzfQOtO9YcrC2iQdY jFVCiNYHfV5ZqtSMdEC swJ898UVwwQjC3CEOwg aMpG5JlZVUzuOljJtZ3 a1C3Gp3Jq1IoazjgX5L odRLzStThKcsmAYf1J0 RkPjwvdHI+BD36KBIxT I11OKi3YMW1vWzfEDou AUDlR1StpL9yBsXkTFF kZGRkOyc+PHRhYmxlIH dpZHRoPScxMDAlJyBzd WkoDE2rSg9hINJzBRQe mTpafXOuWgKjm9ssJSO jNRgeEQ8qdNiqE0CwnK S3CHRyg3x4Tt13F08dZ 3JvdXA+MPSmwSR5eWW5 sJ1uJqHmCtT4MYrzP76 3CbSlxMLaOvycf1rlr8 htnPu3PlT3ZKLrfoSmf MyjWHL2o0VzBu41K73x IHdpZHRoPSIxNSUiIHZ muIandf3kaH1rHt0+PG PxbRH2aHD1oA3pGkAyX uI3PTfzT167EhLvnROn Nqmiu0wef7kteJz2UwL nJNUbvyAegBmzZWR7e2 XjJa40A1PdrRejf8FmV yc6ug30vMVro4X8pWY0 U9AkTYYpqfaixSJudSq qYE9vKBLvsnbrODOkbE 3qIFSoQ3h2KwDcDtA4C QthT3YgmqI6FWBfyZIo HJBatBHSvJ4mcjrsp8k cuzsyPpYaHEGvOKz6DF l0AVRcmAbmAfNbRRR1T lM8UKJ6xBQitL5viSuj ybgfjE0mCwk+WHJ2uLV ppDRLYS9iKscjcLW+PH SmQWP8vVxhRQewLSRmx I0zQBNuS5y0VqPhSpK8 QEtxE4MnvoK8RHJogQZ hLEZlpZQKhH5ttxprl2 foatxiFcRyJXKuXNy9K Fd2UYSdeHnhJfEhWXC6 RkQ3VLT0dGAcdU1rlAd axxlufV9yHmy+QmlydG mfQZG3YSw3X3RaDcn5A LBgdOzcRJ4niNYcBDxx Ig5qzUvhsCzjGK2iJSJ drqgqc548ZyTmz9zwBN ZvrQDmMPqgIES9E92ty 9N1NBQqVJStCIB6fKD1 cK2nzJbxhfhyiOKwkHn gdmVydGljYWwtYWxpZ2 55SYOzbQfnLvZhOXp8G 8AqJha9ANCjsXinBW0r nUXaCUicAg1kgIvtiLs zGO8fASBgkysth617Rs Rdr3vdGURdrJSoVCkcU OH7K57jx1B6WKJaYPNz VAD0tXM1vV0eqLyvnhb gbGVmdDsgdmVydGljYW ffWGkoY027GNHfmEkvR eZnrPe5U9AdVjk4WFSf mCvjQP4miVDkBMfqBz3 seWxkeVhwUR7uGCXhof tkj329QoVvj3hmVYZom GPbQNtjNSN3Z10jf8W4 OPRkDOFxBCW0qYV9pJ6 hbGlnbjogbGVmdDsgdm TrtJjeJKieFQjbR391A HRvcDsnPlBhdGllbnQg THmrKCr4F6SsKszekZE +LD29IEOjUM88qBCvpI Qof6ibcUp4HsQpGYPyR YR2tIyeVXree2RjKAFu O10vjYHjy3Z9HVGghTp kgHDaRrVrmTY5gR3vYC bbicdco0vcnrtkXwcva 3ukys60nK14V97yNZqw ZHRoPSIzMCUiIHZhbGl xpv5eiB9qIr0+PGNvbC Y8dWY9iP9lVFQgBwC2W UtsB658SiJuaBKcRxup a3eqx4dptLq6FjQ2STW fioSqmHwwUNG0r0CeLn 02O30zGSkuBZCrNZAkW FYiMUIgmWsqci0mzV2k Ii8+AZGzfWR8fLP2yZ3 iHqMoOyP1XZbyW809Cc IinGHcBsadG77jI5Rea XA+GIZsAbo5QAWkdUtn OL0pvTRnEFkqVt4wVND 7HoBcHcVbGFauP8HdHL BgbrayulvnaWL6XHPyA SEjyM80Ku4qbJufPADb oXUIaH9nyzuph9fujbz aLkVhVFXsUEv2UNo1YM NmyNlkYqSlFGY4DkZ3K XS4uVHbzE3biZkvauaz lG8vS5IuBOGeixtnWi4 6bM1qLoFkNqY3NMvsPz c+Yw9QPcBFLjleKtRZI kRJRTwvdGQ+PHRkIHN0 eFbtDLjcGJXqjV4wDHD uT4j0FuXaTeO2DZslL1 WrBUXwookbEr51dA9eI wZdBaH3KZymA3IpajK4 MCHouIWhWBsmENG9I25 mw0E7VOXeVTYdIPM1xB W5nY1sxZcgyzxabEYly DsgdmVydGljYWwtYWxp Z638TRCysEcvHgBjRlR 1JoW0WAN6Z2DcXwo1CB XouJjgAO6rgGWzKQhlU x9cgLgyxAxlFJ6qXNDu cjbqQADxyW5lFCHfoDP qcVnnRI9tJFWdawyhb1 01XxDjKWF5GASomBPlF 7RgcU7lUnJsZAPzAUKt G5AifTZoNYqsT076NAj cZzL1IMSudeTjB0SmWL RkcTkjKoK7i9K4Yu9zL iBZZWFyczwvdGQ+PHRk DGX4eMjhLUfzZSMbvR0 zUVDjN7v0DbRmTpL7RQ geU8KqJAEmztbtDc19d C8vKcGaHvQ6RWqmX6Gh oiD7BKCacQQzEJogFZI 9D88bx9J5WSGaDDOjIS Q4pRJ6tP1gjLgbfgqgf GVmdDsgdmVydGljYWwt CKfyS945QHAkhMfoCaD lbWFsZTwvdGQ+PHRkIH N7sUkaGSfzPBTeoS5mE KDjV1l6PbIdJoG8SAgs J9QjSLUurrcfQs72vI7 qQrCcYpZ8UEobX5Jsan Z7ZAQiaYRbYTqpKQK9J 24ha7U7ZBWvLHEaEKH5 qFQ0bK1rdKzeedoiyRC mdDsgdmVydGljYWwtYW cdX410EVFrjBfwJqXka J5iXTBiPZrkwEObyMwu dGQ+OY26ml19P1ReVma pXim1LPKiQDT6zCS0nU 8hMMBuLNtsf0K4nFK2T 8JrdmOvvy0ns5pcNTGp COqdM49liDEni6K1PKY ugZU9WWVapNprVdYtyM 93Oyc+WQRraKhhe7PsB spdf7etn2riaDk4PzRp DLLjhxZxbHopJFN5y6O xVk26Y98vSZutFLEgHA JbDEPtLNHiqMextj5xi G9wIi8+GSVshPX4fWS2 sQ6lGeVvHxC0UYodG09 4SkLtqMNjWfajc5mws6 peaDy4ZhItZKZmtoJyo BymWWK5m9CxQx84C4Uv tGwpr8YtPub3io70aEM uv0V2mGE0B3BkVRCqdr lemLGedKpwSA9hZJLjn vboJTWqiF3iVNTpR5w7 LwBkBaT8NAleV8UcnyU 6IGJvbGQgMTBwdCBUaW 9lnsdbw8ebyxrcOcBpY BNqIEs2BVf1NWKyaKbd OyIfTSG7RrX6XAD5lME fyC6xyKdhmgnrxL7uYr c+UVw7c9dsrTZmIA1re BT3QH37HB93tMNlf2K0 wGF4T2KdOVOyuxdspmt xcVM8TQNzMAJiaU34Np 2znEzdXg2zYZXkYBZ1C WUyxEEqJ5DjbT2nPkZh GXBkADUmN2JsyCHrOXr bD243FBniNiB3WOVxbf GdC6MfUJNwsOzzJlS7a 3R4Wc1XED45QD23JT21 nRGwy7G5xIO3Y3XiNAI fkalgbrwaqEI0SPPnJI BmvD58Ab3eaEwhBp5lV IXvWTS2ANIqpDMlW2Vu fG5fWqJbARCcMHWrR5R lpRGmUEjlW844XXrcMm E9KTWemlDwI2ShWRVab PlqSbA3n5J2Vo0ZVz73 WA65UE08nLJvt9P8zGZ 7G0HbKBCpsuelcixgvV O3QKVuPYDvqL09Po2ll ByuPw4gQHOnFDU8AMDv pZRaF8YefW0gVlIpQCP jHWQiS3ZdaCZpBAdiC8 07SZlxMgU8VEKyobVpT 2KgCHVkgNrpHkC0k6C0 Bt2ANDrtfja1W3BgRpn vdHI+EA26CXJtRZ07hZ JzmTWqa3sjyTy9NgDnL TDeGTZ7bUdqKNnnx3Lm XKJcM05w (more content not included)... [facility] Consultation Noteon 07-07-19 Consultation Note Patient: TIA [...] Problems Acute hepatitis C / SNOMED CT 381731963 / Confirmed Anxiety / SNOMED CT 46678253 / Confirmed Apnea, sleep / SNOMED CT 619658841 / Confirmed Dental caries / SNOMED CT 345758521 / Confirmed PCOS (polycystic ovarian syndrome) / SNOMED CT 608943086 / Confirmed Histories Past Medical History: Active Dental caries ([id number]) Family History: No family history items have [...] mmHg (JUN 29:49) DBP L 57mmHg (JUN 29:) Weight 115.6 kg (JUN 29:) BMI 45.04 [...] Patient agrees with plan of care. [facility] Comment on above: Result Comment: Elec tronically Signed By: Bing PEDRAZA, Todd Spencer.br\Date and Time Signed: 07/06/22 13:28 EDT DHEA SERUMon 07-04-2022 Dehydroepiandrosterone (DHEA) 220 ng/dL Normal 31-701 [facility] Comment on above: Performed By: #### D KAN. ####[facility] [id number] [place] [id number] Nito Sanchez DHEA-SULFATEon 06-30-2022 DHEA-Sulfate 106.0 ug/dL Normal 84.8-378.0 [facility] Comment on above: Performed By: #### D DEEPTI ####[facility] [address] [place] [id number] N[address] Sanchez FSHon 06-30-2022 FSH 6.6 mIU/mL Normal [facility] Comment on above: Result Comment: Adul t Female: Follicular phase 3.5 - 12.5 Ovulation phase 4.7 - 21.5 Luteal phase 1.7 - 7.7 Postmenopausal 25.8 - 134.8 Performed By: #### L BCFSH #### [facility] [address] [place] [address] Dr. Nito Sanchez LUTEINIZING HORMONE (LH)on 0 06-30-2022 LH 18.9 mIU/mL Normal [facility] Comment on above: Result Comment: Adul t Female: Follicular phase 2.4 - 12.6 Ovulation phase 14.0 - 95.6 Luteal phase 1.0 - 11.4 Postmenopausal 7.7 - 58.5 Performed By: #### L BCLH #### [facility] [address] [address] [address] Nito Sanchez PROLACTINon 06-30-2022 Prolactin 5.3 ng/mL Normal 4.8-23.3 [facility] Comment on above: Performed By: #### P ROLAC #### [facility] [address] [address] [address] Nito Sanchez CBC AUTO DIFFon 06-29-2022 BASO # 0.1 103/ul Normal 0.0-0.1 [facility] Comment on above: Performed By: #### C BC #### [facility] [address] [address] [address] Nito Sanchez Basophils/100 WBC (Bld) 0.5 % Normal 0.2-2.0 [facility] Comment on above: Performed By: #### C BC #### [facility] [address] [place] [address] Dr. Nito Sanchez EO # 0.2 103/ul Normal 0.0-0.7 [facility] Comment on above: Performed By: #### C BC #### [facility] [address] [place] [address] Dr. Nito Sanchez Eosinophils/100 WBC (Bld) 1.6 % Normal 0.9-7.0 [facility] Comment on above: Performed By: #### C BC #### [facility] [address] [place] [address] Dr. Nito Sanchez Erythrocyte distribution width (RBC) [Ratio] 13.6 % Normal 11.0-15.0 [facility] Comment on above: Performed By: #### C BC #### [facility] [address] [place] [address] Dr. Nito Sanchez Hematocrit (Bld) [Volume fraction] 39.7 % Normal 36.0-48.0 [facility] Comment on above: Performed By: #### C BC #### [facility] [address] [place] [address] Dr. Nito Sanchez Hemoglobin (Bld) [Mass/Vol] 13.1 g/dL Normal 12.0-16.0 [facility] Comment on above: Performed By: #### C BC #### [facility] [address] [place] [address] Dr. Nito Sanchez IG # 0.05 10e3/ul Critically high 0.00-0.03 [facility] Comment on above: Performed By: #### C BC #### [facility] [address] [place] [address] Dr. Nito Sanchez IG % 0.5 % Normal 0.0-0.5 [facility] Comment on above: Performed By: #### C BC #### [facility] [address] [address] [address] Nito Sanchez LYMPH # 2.6 103/ul Normal 1.2-3.8 [facility] Comment on above: Performed By: #### C BC #### [facility] [address] [address] [address] Nito Sanchez Lymphocytes/100 WBC (Bld) 25.3 % Normal 20.5-60.0 [facility] Comment on above: Performed By: #### C BC #### [facility] Laboratory [address] [place] [address] Dr. Nito Sanchez MANUAL DIFF REQ NO Normal [facility] Comment on above: Performed By: #### C BC #### [facility] [address] [place] [address] Dr. Nito Sanchez MCH (RBC) [Entitic mass] 27.1 pg Normal 26.7-34.0 [facility] Comment on above: Performed By: #### C BC #### [facility] [address] [place] [address] Dr. iNto Sanchez MCHC (RBC) [Mass/Vol] 33.0 g/dL Normal 29.9-35.2 [facility] Comment on above: Performed By: #### C BC #### [facility] [address] [place] [address] Dr. Nito Sanchez MCV (RBC) [Entitic vol] 82.2 fL Normal 81.0-99.0 [facility] Comment on above: Performed By: #### C BC #### [facility] [address] [place] [address] Dr. Nito Sanchez MONO # 0.5 103/ul Normal 0.3-0.8 [facility] Comment on above: Performed By: #### C BC #### [facility] [address] [place] [address] Dr. Niot Sanchez Monocytes/100 WBC (Bld) 5.0 % Normal 1.7-12.0 [facility] Comment on above: Performed By: #### C BC #### [facility] [address] [address] [address] Nito Sanchez NEUT # 6.9 103/ul Critically high 1.4-6.5 [facility] Comment on above: Performed By: #### C BC #### [facility] [id number] Nito Sanchez Neutrophils/100 WBC (Bld) 67.1 % Normal 43.0-75.0 [facility] Comment on above: Performed By: #### C BC #### [facility] [address] [place] [address] Dr. Nito Sanchez Platelet mean volume (Bld) [Entitic vol] 10.0 fL Normal 9.5-13.5 [facility] Comment on above: Performed By: #### C BC #### [facility] [address] [place] [address] Dr. Nito Sanchez PLT 313 103/ul Normal 150-450 [facility] Comment on above: Performed By: #### C BC #### [facility] [address] [place] [address] Dr. Nito Sanchez RBC 4.83 106/ul Normal 4.20-5.40 [facility] Comment on above: Performed By: #### C BC #### [facility] [address] [place] [address] Dr. Nito Sanchez WBC 10.3 103/ul Normal 4.0-11.0 [facility] Comment on above: Performed By: #### C BC #### [facility] [address] [place] [address] Dr. Nito Sanchez Consent for Treatmenton 06-06 Consent for Treatment [id number] 650#1.00CD:127 Normal [facility] FREE T4on 06-29-2022 Free T4 [Mass/Vol] 1.01 ng/dL Normal 0.76-1.46 [facility] Comment on above: Performed By: #### F T4 #### [facility] [address] [place] [address] Dr. Nito Sanchez GLYCOHEMOGLOBIN A1Con 2022 ADA RECOMMENDATION SEE BELOW Normal [facility] Comment on above: Result Comment: ADA RECOMMENDED LIMIT 4.0 - 6.0 ADA THERAPEUTIC TARGET < 7.0 ACTION SUGGESTED > 7.0 Performed By: #### A 1C #### [facility] [address] [place] [address] Dr. Nito Sanchez Glucose [Mass/Vol] 108 mg/dL Normal [facility] Comment on above: Performed By: #### A 1C #### [facility] [address] [place] [address] Dr. Nito Sanchez HbA1c (Bld) [Mass fraction] 5.4 % Normal 4.5-6.2 [facility] Comment on above: Performed By: #### A 1C #### [facility] [address] [place] [address] Dr. Nito Sanchez HIPAA Forms Officeon 023 HIPAA Forms Office [id number] 602#1.00CD:127 Normal [facility] Legal Correspondence Officeo n 06-29-2022 Legal Correspondence Office [id number] 270#1.00CD:127 Normal [facility] Legal Correspondence Office [id number] 787#1.00CD:127 Normal [facility] Office/Clinic Note-Physician on 06-29-2022 Office/Clinic Note-Physician [id number] 515#1.00CD:127 Normal [facility] Orders Officeon 06-29-2022 Orders Office [id number] 642#1.00CD:127 Normal [facility] PREG QUANT HCGon 06-29-2022 HCG QUANT 1 mIU/mL Normal [facility] Comment on above: Performed By: #### T SH, PREGQNT #### [facility] [address] [place] [address] Dr. Nito Sanchez HCG RANGE SEE BELOW Normal [facility] Comment on above: Result Comment: 5-50 0.2-1 WEEK 50-500 1-2 WEEKS 100-5,000 2-3 WEEKS 500-10,000 3-4 WEEKS 1,000-50,000 4-5 WEEKS 10,000-100,000 5-6 WEEKS 15,000-200,000 6-8 WEEKS 10,000-100,000 2-3 MONTHS Performed By: #### T BERNICE, PREGQNT #### [facility] [address] [address] [address] Nito Sanchez Patient Correspondenceon Patient Correspondence [id number] 946#1.00CD:127 Normal [facility] Patient Correspondence [id number] 137#1.00CD:127 Normal [facility] Patient Correspondence [id number] 273#1.00CD:127 Normal [facility] Patient Correspondence [id number] 879#1.00CD:127 Normal [facility] Patient Correspondence [id number] 956#1.00CD:127 Normal [facility] Patient History Officeon Patient History Office [id number] 983#1.00CD:127 Normal [facility] Patient History Office [id number] 721#1.00CD:127 Normal [facility] Radiology Outside Office Shipping Support yon 06-29-2022 Radiology Outside Office Copy [id number] 142#1.00CD:127 Normal [facility] TSHon 06-29-2022 TSH 0.848 uIU/mL Normal 0.358-3.740 [facility] Comment on above: Performed By: #### T BERNICE, PREGQNT #### [facility] [address] [address] [address] Nito Sanchez US PELVIS AND TRANSVAGon [...] suggest polycystic ovarian syndrome. Electronically authenticated by: BETTEY DANIELS Date: 2022-06-29 15:17 Normal [facility] PAP ACOG PANEL 2: 30 to 65on 06-19-2022 . . Normal [facility] Comment on above: Result Comment: Perf ormed at: WB Performed By: #### 4 [id number] #### [facility] [address] [address] [address] Nito Sanchez Age Gdln ACOG Testing 30-65 Normal [facility] Comment on above: Performed By: #### 4 [id number] #### [facility] [address] [address] [address] Nito Sanchez DIAGNOSIS: Comment Normal [facility] Comment on above: Result Comment: NEGA TIVE FOR INTRAEPITHELIAL LESION OR MALIGNANCY. Performed at: WB Performed By: #### 4 [id number] #### [facility] [address] [address] [address] Nito Sanchez HPV Aptima Negative Normal Negative [facility] Comment on above: Result Comment: This nucleic acid amplification test detects fourteen high-risk HPV types (16,18,31,33,35,39,45,51,52,56,58,59,66,68) without differentiation. Performed at: =G Performed By: #### 4 [id number] #### [facility] [address] [place] [address] Dr. Nito Sanchez HPV Genotype Reflex Comment Normal [facility] Comment on above: Result Comment: Crit erzak not met, HPV Genotype not performed. Performed at: WB Performed By: #### 4 [id number] #### [facility] [address] [place] [address] Dr. Nito Sanchez Methodology: Comment Normal [facility] Comment on above: Result Comment: This liquid based ThinPrep(R) pap test was screened with the use of an image guided system. Performed at: WB Performed By: #### 4 [id number] #### [facility] [address] [place] [address] Dr. Nito Sanchez Note: Comment Normal [facility] Comment on above: Result Comment: The Pap smear is a screening test designed to aid in the detection of premalignant and malignant conditions of the uterine cervix. It is not a diagnostic procedure and should not be used as the sole means of detecting cervical cancer. Both false-positive and false-negative reports do occur. . Performed at: WB Performed By: #### 4 [id number] #### [facility] [address] [place] [address] Dr. Nito Sanchez Performed by: Comment Normal [facility] Comment on above: Result Comment: Nanda Treadwell, Concrete Puddler (ASCP) Performed at: WB Performed By: #### 4 [id number] #### [facility] [address] [place] [address] Dr. Nito Sanchez Specimen adequacy: Comment Normal [facility] Comment on above: Result Comment: Sati sfactory for evaluation. Endocervical and/or squamous metaplastic cells (endocervical component) are present. Performed at: WB Performed By: #### 4 [id number] #### [facility] [address] [place] [address] MAXILLOFACIAL WO CONTRAST [...] by: Phil Mary MD 05/11/[address] [facility] Recent extraction of the right mandibular and maxillary second molar teeth with presence of air in the respective tooth sockets. No evidence of edema in the sublingual space or the buccal space Probable periapical abscess involving the right maxillary premolar tooth adjacent to the first molar tooth. [facility] EXAM: CT MAXILLOFACIAL WO CONTRAST [...] visualized intracranial contents show no acute process. [facility] Phil Mary MD - 05/11/2022 [...] tooth adjacent to the first molar tooth. [employer] Work Phone: Radiology Study observation (narrative) [employer] Work Phone: CT MAXILLOFACIAL WO CONTRAST Ordered By: Phil Mary on 05-11-2022 [facility] [employer] Work Phone: HCG, ,Urineon 05-11 Beta HCG ( test) Ql (U) Negative Normal NEG [facility] Comment on above: Performed By: #### U HCG #### [facility] [address] [place] [address] Accredited Pharmacy Technician: Guero Sandoval MD Urine Preg (Lab)on 3 Beta HCG ( test) Ql (U) Negative NEGATIVE [facility] [employer] HCG, Quantitative, on 03-29-2022 hCG Quant NINF [facility] Comment on above: Non-preg premeno <=5 Postmeno <=8 Male <=3 If HCG results do not concur with clinical observations, additional testing to confirm results is recommended. [facility] [employer] COVID-19, Rapidon 05-18-2022 SARS-CoV-2 (COVID-19) RNA KALPESH+probe Ql (Unsp spec) Not detected Not Detected [facility] Comment on above: Rapid NAAT: The specimen [...] management decisions. Fact sheet for Healthcare Providers: https://www.fda.gov/media/966093/download Fact sheet for Patients: https://www.fda.gov/media/287763/download Methodology: Isothermal Nucleic Acid Amplification Specimen Description .NASOPHARYNGEAL SWAB [facility] Strep Screen Group A Throato n 07-22-2021 S. pyogenes Ag Ql (Throat) Negative NEGATIVE [facility] Comment on above: Rapid Strep A negati ve. A negative Rapid Group A Strep Screen result does not rule out the possibility of Group A Streptococci in the specimen. A Group A Strep DNA test is available upon request. Source .THROAT SWAB [facility] MR LUMBAR SPINE WITHOUT CONT [facility] 06-17-2021 MR LUMBAR SPINE WITHOUT CONTRAST [...] foraminal stenosis. 2. No fracture or spondylolisthesis. [facility] Workstation ID: [id number] Dictated by: JONATHAN LINARES on TueJun 18, 2021 11:51:00 AM EDT Transcribed by: ZULMA CARDENAS on TueJun 18, 2021 11:58:13 AM EDT Finalized by: JONATHAN LINARES on TueJun 18, 2021 12:35:45 PM EDT [facility] Comment on above: Order Comment: Injur y/Trauma or Illness?:Illness/Other How long have you had these symptoms (acute/chronic)?:Chronic Reason for exam?:LBP AND bilat hip pain x years, nki Type of Exam?:Subsequent/Follow-up Additional signs and symptoms?:. CBC panel Auto (Bld)on 04-16 Erythrocyte distribution width (RBC) [Entitic vol] 14.0 % 11.6 - 14.8 % [facility] Hematocrit (Bld) [Volume fraction] 38.6 % 36.0 - 46.0 % [facility] Hemoglobin (Bld) [Mass/Vol] 12.1 g/dL 12.0 - 16.0 g/dL [facility] Interpretation and review of laboratory results Abnormal [facility] MCH (RBC) [Entitic mass] 25.4 pg Low 26. 0 - 34.0 pg [facility] MCHC (RBC) [Mass/Vol] 31.3 g/dL 31.0 - 37.0 g/dL [facility] MCV (RBC) [Entitic vol] 81.1 fL 80.0 - 100.0 fL [facility] Platelet mean volume (Bld) [Entitic vol] 10.0 fL 9.4 - 12.4 fL [facility] Platelets (Bld) [#/Vol] 379 10*3/uL [facility] RBC (Bld) [#/Vol] 4.76 10*6/uL [facility] WBC (Bld) [#/Vol] 9.85 10*3/uL [facility] Comprehensive metabolic 2000 panelon 04-16-2021 Albumin [Mass/Vol] 3.7 g/dL 3.2 - 5.2 g/dL [facility] ALP [Catalytic activity/Vol] 95 U/L 40 - 140 U/L [facility] ALT [Catalytic activity/Vol] 36 U/L 14 - 65 U/L [facility] Anion gap [Moles/Vol] 11 mmol/L 10 - 2 0 mmol/L [facility] AST [Catalytic activity/Vol] 22 U/L 0 - 45 U/L [facility] Bilirubin [Mass/Vol] 0.3 mg/dL 0.0 - 1 .3 mg/dL [facility] Calcium [Mass/Vol] 9.3 mg/dL 8.4 - 10. 2 mg/dL [facility] Chloride [Moles/Vol] 105 mmol/L 98 - 10 8 mmol/L [facility] Creatinine [Mass/Vol] 0.68 mg/dL 0.40 - 1.10 [facility] GFR/1.73 sq M.predicted CKD-EPI (S/P/Bld) [Vol rate/Area] 117 >=60 mL/min/1.73 m2 [facility] Glucose [Mass/Vol] 76 mg/dL 65 - 99 mg/dL [facility] HCO3 [Moles/Vol] 26 mmol/L 21 - 32 mmol/L [facility] Interpretation and review of laboratory results Normal [facility] Potassium [Moles/Vol] 4.2 mmol/L 3.5 - 5.1 mmol/L [facility] Protein [Mass/Vol] 7.5 g/dL 6.0 - 8.0 g/dL [facility] Sodium [Moles/Vol] 138 mmol/L 135 - 145 mmol/L [facility] Urea nitrogen [Mass/Vol] 13 mg/dL 8 - 25 mg/dL [facility] Urea nitrogen/Creatinine [Mass ratio] 19.1 mg/mg [facility] The eGFR should be used for monitoring renal function only and not for medication dosing. [facility] Lipid 1996 panelon Cholesterol [Mass/Vol] 195 mg/dL 100 - 199 mg/dL [facility] Comment on above: National Cholesterol Education Program Guidelines: Cholesterol Desirable: <200 mg/dL Borderline High: 200-239 mg/dL High: greater than or equal to 240 mg/dL Cholesterol in HDL [Mass/Vol] 56 mg/dL 40 - 59 [facility] Comment on above: National Cholesterol Education Program Guidelines: HDL Cholesterol Low: <40 mg/dL Near Optimal: 40-59 mg/dL High: greater than or equal to 60 mg/dL Cholesterol in LDL [Mass/Vol] 109 mg/dL 10 - 130 mg/dL [facility] Comment on above: National Cholesterol Education Program Guidelines: LDL Cholesterol Optimal: <100 mg/dL Near Optimal/above Optimal: 100-129 mg/dL Borderline High: 130-159 mg/dL High: 160-189 mg/dL Very High: greater than or equal to 190 mg/dL Cholesterol non HDL [Mass/Vol] 139 mg/dL [facility] Comment on above: National Cholesterol Education Program Guidelines: NON HDL Cholesterol Desirable: <130 mg/dL Borderline High: 130-159 mg/dL High: 160-189 mg/dL Very High: > or = 190 mg/dL Cholesterol.total/Cholest elton in HDL [Mass ratio] 3.5 {ratio} ratio [facility] Comment on above: Female Cholesterol/H DL Ratio: Average risk: 4.4 1/2 average risk: 3.3 2 x average risk: 7.1 Interpretation and review of laboratory results Abnormal [facility] Triglyceride [Mass/Vol] 151 mg/dL High 30 - 150 mg/dL [facility] Comment on above: National Cholesterol Education Program Guidelines: Triglyceride Normal: <150 mg/dL Borderline High: 150-199 mg/dL High: 200-499 mg/dL Very High: greater than or equal to 500 mg/dL No Panel Informationon 04-16 [facility] TSH DL <= 0.005 mIU/L Qnon 0 2-10-2022 Interpretation and review of laboratory results Normal [facility] TSH Qn 1.04 m[IU]/L [facility] Basic Metabolic Panel w/ Ref ray to MGon 03-23-2021 Anion gap [Moles/Vol] 13 mmol/L 9 - 17 mmol/L [facility] Calcium [Mass/Vol] 8.8 mg/dL 8.6 - 10. 4 mg/dL [facility] Chloride [Moles/Vol] 104 mmol/L 98 - 10 7 mmol/L [facility] CO2 [Moles/Vol] 21 mmol/L 20 - 31 mmol/L [facility] Creatinine [Mass/Vol] 0.65 mg/dL 0.50 - 0.90 mg/dL [facility] GFR >60 >60 mL/min [facility] GFR Non- >60 >60 mL/min [facility] GFR/1.73 sq M.predicted MDRD (S/P/Bld) [Vol rate/Area] [facility] Comment on above: Average GFR for 30-3 9 years old: 107 mL/min/1.73sq m Chronic Kidney Disease: <60 mL/min/1.73sq m Kidney failure: <15 mL/min/1.73sq m eGFR calculated using average adult body mass. Additional eGFR calculator available at: http://www.[employer]/multiple_crcl_2012.htm GFR/1.73 sq M.predicted MDRD (S/P/Bld) [Vol rate/Area] NOT REPORTED [facility] Glucose [Mass/Vol] 104 mg/dL High 70 - 99 mg/dL [facility] Interpretation and review of laboratory results Abnormal [facility] Potassium [Moles/Vol] 3.7 mmol/L 3.7 - 5.3 mmol/L [facility] Sodium [Moles/Vol] 138 mmol/L 135 - 144 mmol/L [facility] Urea nitrogen (BldV) [Mass/Vol] 15 mg/dL 6 - 20 mg/dL [facility] Urea nitrogen/Creatinine (Bld) [Mass ratio] 23 High [facility] CBC Auto Differentialon 03-07 Absolute Eos # 0.10 [facility] th Absolute Immature Granulocyte NOT REPORTED [facility] Absolute Lymph # 0.60 Low [facility] Absolute [place] # 0.50 [facility] Basophils (Bld) [#/Vol] 0.00 10*3/uL [facility] Basophils/100 WBC (Bld) 0 % 0 - 2 % [facility] Differential Type YES [facility] Eosinophils/100 WBC (Bld) 2 % 0 - 5 % [facility] Hematocrit (Bld) [Volume fraction] 34.6 % Low 36 - 46 % [facility] Hemoglobin.gastrointestin al spec 1 Ql (Stl) 11.7 g/dL Low 12.0 - 16.0 g/dL [facility] Immature Granulocytes NOT REPORTED 0 % [facility] Interpretation and review of laboratory results Abnormal [facility] Lymphocytes/100 WBC (Bld) 13 % Low 15 - 40 % [facility] MCH (RBC) [Entitic mass] 26.4 pg 26 - 34 pg [facility] MCHC (RBC) [Mass/Vol] 33.8 g/dL 31 - 3 7 g/dL [facility] MCV (RBC) [Entitic vol] 78.2 fL Low 80 - 100 fL [facility] Monocytes/100 WBC (Bld) 10 % High 4 - 8 % [facility] NRBC Automated NOT REPORTED per 100 WBC [facility] Platelet distribution width (Bld) [Ratio] 14.4 % 12.1 - 15.2 % [facility] Platelet Estimate NOT REPORTED [facility] Platelet mean volume (Bld) [Entitic vol] NOT REPORTED 6.0 - 12.0 fL [facility] Platelets (Bld) [#/Vol] 259 10*3/uL [facility] RBC (Bld) [#/Vol] 4.43 10*6/uL 4.0 - 5.2 m/uL [facility] RBC (Bld) [#/Vol] NOT REPORTED [facility] Segmented neutrophils/100 WBC (Bld) 75 % 47 - 75 % [facility] Segs Absolute 3.60 [facility] h WBC (Bld) [#/Vol] 4.8 10*3/uL [facility] WBC (Bld) [#/Vol] NOT REPORTED [facility] COVID-19, Rapidon 03-23-2021 Interpretation and review of laboratory results Abnormal [facility] SARS-CoV-2 (COVID-19) RNA KALPESH+probe Ql (Unsp spec) Detected Abnormal Not Detected [employer] Comment on above: Rapid NAAT: The specimen [...] this assay. Fact sheet for Healthcare Providers: https://www.fda.gov/media/029341/download Fact sheet for Patients: https://www.fda.gov/media/852731/download Methodology: Isothermal Nucleic Acid Amplification Results reported to the appropriate Health Department Specimen Description .NASOPHARYNGEAL SWAB [facility] No Panel Informationon 03-23 Direct Exam Negative [facility] influenza A/B antigens on 03-23-2021 Special Requests NOT REPORTED [facility] [employer] Specimen Description .NASOPHARYNGEAL SWAB [facility] COVID-19, RapidOrdered By: Shayy Springer on 12-27-2020 SARS-CoV-2 (COVID-19) RNA KALPESH+probe Ql (Unsp spec) Not detected Not Detected [employer] Work Phone: Comment on above: Rapid NAAT: [...] management decisions. Fact sheet for Healthcare Providers: https://www.fda.gov/media/425755/download Fact sheet for Patients: https://www.fda.gov/media/202193/download Methodology: Isothermal Nucleic Acid Amplification Specimen Description .NASOPHARYNGEAL SWAB [employer] Phone: [employer] Phone: Strep Screen Group A ThroatO rdered By: Wayne Springer on 12-27-2020 S. pyogenes Ag IA Ql (Unsp spec) Rapid Strep A negative. A negative Rapid Group A Strep Screen result does not rule out the possibility of Group A Streptococci in the specimen. A Group A Strep DNA test is available upon request. [employer] Phone: Special Requests NOT REPORTED [employer] Phone: Specimen Description .THROAT [employer] Phone: [employer] Phone: XR SHOULDER RIGHT (MIN 2 VIE WS)Ordered By: Allegra Quinn on 11-20-2020 No acute fracture or traumatic malalignment. [employer] Phone: EXAMINATION: XR SHOULDER RIGHT (MIN 2 VIEWS), , 11/20/2020 9:30 PM EDT INDICATION: Reason for exam:->shoulder pain HISTORY: Ordering Provider Reason for Exam: Technologist Note: Additional: COMPARISON: None. TECHNIQUE: Right shoulder x-ray: 3 view(s). FINDINGS: No acute fracture. Glenohumeral and acromioclavicular joints are anatomically aligned. Joint spaces are preserved. Soft tissues are unremarkable. [employer] Phone: Ward, [facility] Incoming Radiant Results From [employer] - 11/20/2020 9:55 PM EDT EXAMINATION: XR [...] IMPRESSION: No acute fracture or traumatic malalignment. [employer] Work Phone: [employer] Work Phone: COVID-19, MOLECULARon 2020 SARS-CoV-2 (COVID-19) RNA KALPESH+probe Ql (Unsp spec) Not detected Normal Not Detected [facility] Comment on above: Order Comment: [...] at the following links: For Healthcare Providers: https://www.fda.gov/media/653130/download For Patients: https://www.fda.gov/media/633266/download Performed By: #### L [id number] #### [facility] [address] [place] [address] Joe Rider M.D. [id number] HbA1c (Bld) [Mass fraction]O rdered By: Zelda Bautista on 07-09-2020 Interpretation and review of laboratory results Normal [facility] POC Hemoglobin [id number] By : Zelda Bautista on 07-09-2020 HbA1c (Bld) [Mass fraction] 5.2 % 4.0 - 6.0 % [facility] HbA1c (Bld) [Mass fraction]O rdered By: Lelo Gallegos on 06-09-2020 Interpretation and review of laboratory results Normal [facility] POC Hemoglobin [id number] By : Lelo Gallegos on 06-09-2020 HbA1c (Bld) [Mass fraction] 5.6 % 4.0 - 6.0 % [facility] CBC Auto Differentialon 01-2 Basophils (Bld) [#/Vol] 0.00 10*3/uL [place], [place] Basophils/100 WBC (Bld) 0 % 0 - 2 % M [place], [place] Differential Type YES [place], [place] Eosinophils (Bld) [#/Vol] 0.10 10*3/uL [place] Eosinophils/100 WBC (Bld) 1 % 0 - 5 % [place] Erythrocyte distribution width (RBC) [Ratio] 14.2 % 12.1 - 15.2 % [place] Hematocrit (Bld) [Volume fraction] 36.1 % 36 - 46 % [place] Hemoglobin (Bld) [Mass/Vol] 12.5 g/dL 12 - 16 g/dL [place] Interpretation and review of laboratory results Abnormal [place] Lymphocytes (Bld) [#/Vol] 2.00 10*3/uL [place] Lymphocytes/100 WBC (Bld) 14 % Low 15 - 40 % [place] MCH (RBC) [Entitic mass] 30.6 pg 26 - 34 pg [place] MCHC (RBC) [Mass/Vol] 34.5 g/dL 31 - 3 7 g/dL [place] MCV (RBC) [Entitic vol] 88.5 fL 80 - 100 fL [place] Monocytes (Bld) [#/Vol] 0.80 10*3/uL [place] Monocytes/100 WBC (Bld) 6 % 4 - 8 % [place] Platelet mean volume (Bld) [Entitic vol] NOT REPORTED 6 - 12 fL [place] Platelets (Bld) [#/Vol] 300 10*3/uL [place] Platelets (Bld) [#/Vol] NOT REPORTED [place] RBC (Bld) [#/Vol] 4.08 10*6/uL 4 - 5.2 m/uL [place] RBC morphology finding Nom (Bld) NOT REPORTED [place] Segmented neutrophils/100 WBC (Bld) 79 % High 47 - 75 % [place] Segs Absolute 10.70 [place] WBC (Bld) [#/Vol] 13.6 10*3/uL [place] WBC (Bld) [#/Vol] NOT REPORTED per 100 WBC [place] WBC Morphology NOT REPORTED [place] COVID-19, PCRon 03-26-2020 SARS-CoV-2, Rapid Not Detected Not Detected [place] Comment on above: Rapid NAAT: The [...] management decisions. Fact sheet for Healthcare Providers: https://www.fda.gov/media/522894/download Fact sheet for Patients: https://www.fda.gov/media/741231/download Methodology: Isothermal Nucleic Acid Amplification Source .THROAT [place] Comprehensive Metabolic Pane l w/ Reflex to MGon 03-26-2020 Albumin [Mass/Vol] 3.3 g/dL Low 3.5 - 5.2 g/dL [place] Albumin/Globulin [Mass ratio] NOT REPORTED [place] ALP [Catalytic activity/Vol] 57 U/L 35 - 104 U/L [place] ALT [Catalytic activity/Vol] U/L Low 5 - 33 U/L [place] Anion gap [Moles/Vol] 11 mmol/L 9 - 17 mmol/L [place] AST [Catalytic activity/Vol] 9 U/L <32 [place] Bilirubin Ql (U) 0.10 mg/dL Low 0.3 - 1.2 mg/dL [place] Bun/Cre Ratio 21 [place] Calcium [Mass/Vol] 10.2 mg/dL 8.6 - 10. 4 mg/dL [place] Chloride [Moles/Vol] 104 mmol/L 98 - 10 7 mmol/L [place] CO2 [Moles/Vol] 21 mmol/L 20 - 31 mmol/L [place] Creatinine [Mass/Vol] 0.42 mg/dL Low 0.5 - 0.9 mg/dL [place] GFR >60 >60 mL/min [place] GFR Non- >60 >60 mL/min [place] GFR/1.73 sq M predicted among non-blacks MDRD (S/P/Bld) [Vol rate/Area] NOT REPORTED [place] GFR/1.73 sq M predicted among non-blacks MDRD (S/P/Bld) [Vol rate/Area] [place] Comment on above: Average GFR for 30-3 9 years old: 107 mL/min/1.73sq m Chronic Kidney Disease: <60 mL/min/1.73sq m Kidney failure: <15 mL/min/1.73sq m eGFR calculated using average adult body mass. Additional eGFR calculator available at: http://www.VitalsGuard/multiple_crcl_2012.htm Glucose [Mass/Vol] 100 mg/dL High 70 - 99 mg/dL [place] Interpretation and review of laboratory results Abnormal [place] Potassium [Moles/Vol] 3.8 mmol/L 3.7 - 5.3 mmol/L [place] Protein [Mass/Vol] 6.5 g/dL 6.4 - 8.3 g/dL [place] Sodium [Moles/Vol] 136 mmol/L 135 - 144 mmol/L [place] Urea nitrogen [Mass/Vol] 9 mg/dL 6 - 20 mg/dL [place] Otheron 03-26-2020 SARS-CoV-2 [place] Immature granulocytes (Bld) [#/Vol] NOT REPORTED [place] Urinalysis, reflex to micros copicon 03-26-2020 Bilirubin [facility] [place] Color, UA YELLOW YELLOW [place] Glucose, Ur Negative NEGATIVE [place] Ketones Ql (U) Negative NEGATIVE [place] Leukocyte esterase Test strip Ql (U) Negative NEGATIVE [place] Nitrite, Urine Negative NEGATIVE [place] pH, UA 7.0 [place] Protein (U) [Mass/Vol] Negative NEGATIVE [place] Specific [place], UA 1.010 [place] Turbidity UA CLEAR CLEAR [place] Urinalysis Comments [place] Urine Hgb Negative NEGATIVE [place] Urobilinogen, Urine Normal Normal [place] Wet Prep, Genitalon 11-20-19 Direct Exam MODERATE EPITHELIAL CELLS Abnormal [place] Direct Exam FEW TRICHOMONAS SEEN Abnormal [place] Direct Exam MODERATE BACTERIA Abnormal [place] Direct Exam Few epithelials coated with bacteria resembling clue cells. Abnormal [place] Direct Exam NO FUNGAL ELEMENTS SEEN [place] Interpretation and review of laboratory results Abnormal [place] Special Requests NOT REPORTED [place] Specimen Description .VAGINAL SPECIMEN [place] WBC (Bld) [#/Vol] FEW WBC SEEN Abnormal [place] Basic Metabolic Panelon 06-05 Anion gap [Moles/Vol] 15 mmol/L 10 - 2 0 mmol/L [facility] Calcium [Mass/Vol] 8.6 mg/dL 8.4 - 10. 2 mg/dL [facility] Chloride [Moles/Vol] 102 mmol/L 98 - 10 8 mmol/L [facility] Creatinine [Mass/Vol] 0.36 mg/dL Low 0.40 - 1.10 [facility] GFR/1.73 sq M predicted among non-blacks MDRD (S/P/Bld) [Vol rate/Area] The eGFR should be used for monitoring renal function only and not for medication dosing. [facility] GFR/1.73 sq M.predicted CKD-EPI (S/P/Bld) [Vol rate/Area] 146 >=60 mL/min/1.73 m2 [facility] Glucose [Mass/Vol] 102 mg/dL High 65 - 99 mg/dL [facility] HCO3 [Moles/Vol] 25 mmol/L 21 - 32 mmol/L [facility] Interpretation and review of laboratory results Abnormal [facility] Potassium [Moles/Vol] 4.1 mmol/L 3.5 - 5.1 mmol/L [facility] Sodium [Moles/Vol] 138 mmol/L 135 - 145 mmol/L [facility] Urea nitrogen [Mass/Vol] 5 mg/dL Low 8 - 25 mg/dL [facility] Urea nitrogen/Creatinine [Mass ratio] 13.9 mg/mg [facility] Hepatic Function Panelon Albumin [Mass/Vol] 3.3 g/dL 3.2 - 5.2 g/dL [facility] ALP [Catalytic activity/Vol] 253 U/L High 40 - 140 U/L [facility] ALT [Catalytic activity/Vol] 686 U/L High 0 - 40 U/L [facility] AST [Catalytic activity/Vol] 349 U/L High 0 - 45 U/L [facility] Bilirubin [Mass/Vol] 6.0 mg/dL High 0 - 1.3 mg/dL [facility] Bilirubin.conjugated [Mass/Vol] 5.1 mg/dL High 0 - 0.4 mg/dL [facility] Interpretation and review of laboratory results Abnormal [facility] Protein [Mass/Vol] 6.8 g/dL 6 - 8 g/dL [facility] Bilirubin, Directon 06-16-19 20 Bilirubin.conjugated [Mass/Vol] 5.4 mg/dL High 0 - 0.4 mg/dL [facility] Interpretation and review of laboratory results Abnormal [facility] CBCon 06-16-2019 Erythrocyte distribution width (RBC) [Entitic vol] 15.1 % High 11.6 - 14.8 % [facility] Hematocrit (Bld) [Volume fraction] 38.5 % 36 - 46 % [facility] Hemoglobin (Bld) [Mass/Vol] 12.9 g/dL 12 - 16 g/dL [facility] Interpretation and review of laboratory results Abnormal [facility] MCH (RBC) [Entitic mass] 29.1 pg 26 - 34 pg [facility] MCHC (RBC) [Mass/Vol] 33.5 g/dL 31 - 3 7 g/dL [facility] MCV (RBC) [Entitic vol] 86.9 fL 80 - 100 fL [facility] Nucleated RBC (Bld) [#/Vol] 0.00 10*3/uL [facility] Nucleated RBC/100 WBC (Bld) [Ratio] 0.0 % [facility] Platelet mean volume (Bld) [Entitic vol] 11.3 fL 9 - 15.5 fL [facility] Platelets (Bld) [#/Vol] 185 10*3/uL [facility] RBC (Bld) [#/Vol] 4.43 10*6/uL [facility] WBC (Bld) [#/Vol] 6.48 10*3/uL [facility] Comprehensive Metabolic Pane cayden 06-16-2019 Albumin [Mass/Vol] 3.3 g/dL 3.2 - 5.2 g/dL [facility] ALP [Catalytic activity/Vol] 217 U/L High 40 - 140 U/L [facility] ALT [Catalytic activity/Vol] 825 U/L High 0 - 40 U/L [facility] Anion gap [Moles/Vol] 14 mmol/L 10 - 2 0 mmol/L [facility] AST [Catalytic activity/Vol] 544 U/L High 0 - 45 U/L [facility] Bilirubin [Mass/Vol] 5.9 mg/dL High 0 - 1.3 mg/dL [facility] Calcium [Mass/Vol] 8.4 mg/dL 8.4 - 10. 2 mg/dL [facility] Chloride [Moles/Vol] 103 mmol/L 98 - 10 8 mmol/L [facility] Creatinine [Mass/Vol] 0.32 mg/dL Low 0.40 - 1.10 [facility] GFR/1.73 sq M predicted among non-blacks MDRD (S/P/Bld) [Vol rate/Area] The eGFR should be used for monitoring renal function only and not for medication dosing. [facility] GFR/1.73 sq M.predicted CKD-EPI (S/P/Bld) [Vol rate/Area] 152 >=60 mL/min/1.73 m2 [facility] Glucose [Mass/Vol] 92 mg/dL 65 - 99 mg/dL [facility] HCO3 [Moles/Vol] 26 mmol/L 21 - 32 mmol/L [facility] Interpretation and review of laboratory results Abnormal [facility] Potassium [Moles/Vol] 4.3 mmol/L 3.5 - 5.1 mmol/L [facility] Protein [Mass/Vol] 6.2 g/dL 6 - 8 g/dL [facility] Sodium [Moles/Vol] 139 mmol/L 135 - 145 mmol/L [facility] Urea nitrogen [Mass/Vol] 4 mg/dL Low 8 - 25 mg/dL [facility] Urea nitrogen/Creatinine [Mass ratio] 12.5 mg/mg [facility] Bilirubin, Directon 06-15-19 20 Bilirubin.conjugated [Mass/Vol] 4.7 mg/dL High 0 - 0.4 mg/dL [facility] Interpretation and review of laboratory results Abnormal [facility] CBCon 06-15-2019 Erythrocyte distribution width (RBC) [Entitic vol] 14.8 % 11.6 - 14.8 % [facility] Hematocrit (Bld) [Volume fraction] 38.5 % 36 - 46 % [facility] Hemoglobin (Bld) [Mass/Vol] 12.6 g/dL 12 - 16 g/dL [facility] MCH (RBC) [Entitic mass] 29.0 pg 26 - 34 pg [facility] MCHC (RBC) [Mass/Vol] 32.7 g/dL 31 - 3 7 g/dL [facility] MCV (RBC) [Entitic vol] 88.5 fL 80 - 100 fL [facility] Nucleated RBC (Bld) [#/Vol] 0.00 10*3/uL [facility] Nucleated RBC/100 WBC (Bld) [Ratio] 0.0 % [facility] Platelet mean volume (Bld) [Entitic vol] 11.0 fL 9 - 15.5 fL [facility] Platelets (Bld) [#/Vol] 155 10*3/uL [facility] RBC (Bld) [#/Vol] 4.35 10*6/uL [facility] WBC (Bld) [#/Vol] 5.74 10*3/uL [facility] Comprehensive Metabolic Pane cayden 06-15-2019 Albumin [Mass/Vol] 3.2 g/dL 3.2 - 5.2 g/dL [facility] ALP [Catalytic activity/Vol] 193 U/L High 40 - 140 U/L [facility] ALT [Catalytic activity/Vol] 888 U/L High 0 - 40 U/L [facility] Anion gap [Moles/Vol] 15 mmol/L 10 - 2 0 mmol/L [facility] AST [Catalytic activity/Vol] 667 U/L High 0 - 45 U/L [facility] Bilirubin [Mass/Vol] 5.2 mg/dL High 0 - 1.3 mg/dL [facility] Calcium [Mass/Vol] 8.2 mg/dL Low 8.4 - 10. 2 mg/dL [facility] Chloride [Moles/Vol] 103 mmol/L 98 - 10 8 mmol/L [facility] Creatinine [Mass/Vol] 0.36 mg/dL Low 0.40 - 1.10 [facility] GFR/1.73 sq M predicted among non-blacks MDRD (S/P/Bld) [Vol rate/Area] The eGFR should be used for monitoring renal function only and not for medication dosing. [facility] GFR/1.73 sq M.predicted CKD-EPI (S/P/Bld) [Vol rate/Area] 146 >=60 mL/min/1.73 m2 [facility] Glucose [Mass/Vol] 122 mg/dL High 65 - 99 mg/dL [facility] HCO3 [Moles/Vol] 22 mmol/L 21 - 32 mmol/L [facility] Interpretation and review of laboratory results Abnormal [facility] Potassium [Moles/Vol] 3.8 mmol/L 3.5 - 5.1 mmol/L [facility] Protein [Mass/Vol] 5.8 g/dL Low 6 - 8 g/dL [facility] Sodium [Moles/Vol] 136 mmol/L 135 - 145 mmol/L [facility] Urea nitrogen [Mass/Vol] 5 mg/dL Low 8 - 25 mg/dL [facility] Urea nitrogen/Creatinine [Mass ratio] 13.9 mg/mg [facility] [place] HEPATOBILIARY WO EJECTION FRACTIONon 06-15-2019 [...] tree, and small bowel are not visualized. [facility] Opacified liver with no visualization of [...] regarding the presence or absence of cholecystitis. [employer] Workstation ID: [id number] [facility] Interface, Rad In Fuji Speechq - [...] regarding the presence or absence of cholecystitis. [employer] Workstation ID: [id number] [facility] APTTon 06-14-2019 aPTT Coag (Bld) [Time] 31.1 s [facility] [place], [place] Comment on above: PTT Therapeutic Range: 61.7-88.4 Therapeutic range corresponds to plasma heparin levels of 0.3-0.7 U/mL. Acetaminophen Levelon 2019 Acetaminophen [Mass/Vol] 9.1 [facility] Interpretation and review of laboratory results Normal [facility] Bilirubin, Directon 06-14-19 20 Bilirubin.conjugated [Mass/Vol] 4.3 mg/dL High 0 - 0.4 mg/dL [facility] Interpretation and review of laboratory results Abnormal [facility] CBC WITH AUTO DIFFERENTIALon 06-14-2019 Erythrocyte distribution width (RBC) [Entitic vol] 14.5 % 11.6 - 14.8 % [facility] Hematocrit (Bld) [Volume fraction] 34.6 % Low 36 - 46 % [facility] Hemoglobin (Bld) [Mass/Vol] 11.6 g/dL Low 12 - 16 g/dL [facility] Interpretation and review of laboratory results Abnormal [facility] MCH (RBC) [Entitic mass] 29.7 pg 26 - 34 pg [facility] MCHC (RBC) [Mass/Vol] 33.5 g/dL 31 - 3 7 g/dL [facility] MCV (RBC) [Entitic vol] 88.5 fL 80 - 100 fL [facility] Nucleated RBC (Bld) [#/Vol] 0.00 10*3/uL [facility] Nucleated RBC/100 WBC (Bld) [Ratio] 0.0 % [facility] Platelet mean volume (Bld) [Entitic vol] 10.8 fL 9 - 15.5 fL [facility] Platelets (Bld) [#/Vol] 172 10*3/uL [facility] RBC (Bld) [#/Vol] 3.91 10*6/uL Low [facility] WBC (Bld) [#/Vol] 7.28 10*3/uL [facility] e[facility] CT ABDOMEN PELVIS W IV CONTR AST Additional Contrast? Noneon 06-14-2019 [place], p[place] Incoming Radiant Results From [employer] - 06/14/2019 12:27 AM EDT EXAMINATION: CT [...] liver function panel and consider ultrasound imaging. [place] Pericholecystic fluid versus gallbladder wall thickening and additional periportal edema. There are no visualized stones in the gallbladder gallbladder and/or hepatic pathology are suspected. Correlate with liver function panel and consider ultrasound imaging. [place] EXAMINATION: CT ABDOMEN PELVIS W IV [...] structures demonstrate no acute or concerning abnormality. [facility] [place], [place] CT COMPARISON IMPORTon 06-13 This order has been auto-finalized and does not contain a result. [facility] Comprehensive Metabolic Pane cayden 06-14-2019 Albumin [Mass/Vol] 3.0 g/dL Low 3.2 - 5.2 g/dL [facility] ALP [Catalytic activity/Vol] 183 U/L High 40 - 140 U/L [facility] ALT [Catalytic activity/Vol] 808 U/L High 0 - 40 U/L [facility] Anion gap [Moles/Vol] 16 mmol/L 10 - 2 0 mmol/L [facility] AST [Catalytic activity/Vol] 592 U/L High 0 - 45 U/L [facility] Bilirubin [Mass/Vol] 4.9 mg/dL High 0 - 1.3 mg/dL [facility] Calcium [Mass/Vol] 8.4 mg/dL 8.4 - 10. 2 mg/dL [facility] Chloride [Moles/Vol] 104 mmol/L 98 - 10 8 mmol/L [facility] Creatinine [Mass/Vol] 0.43 mg/dL 0.40 - 1.10 [facility] GFR/1.73 sq M predicted among non-blacks MDRD (S/P/Bld) [Vol rate/Area] The eGFR should be used for monitoring renal function only and not for medication dosing. [facility] GFR/1.73 sq M.predicted CKD-EPI (S/P/Bld) [Vol rate/Area] 138 >=60 mL/min/1.73 m2 [facility] Glucose [Mass/Vol] 79 mg/dL 65 - 99 mg/dL [facility] HCO3 [Moles/Vol] 21 mmol/L 21 - 32 mmol/L [facility] Interpretation and review of laboratory results Abnormal [facility] Potassium [Moles/Vol] 3.8 mmol/L 3.5 - 5.1 mmol/L [facility] Protein [Mass/Vol] 5.7 g/dL Low 6 - 8 g/dL [facility] Sodium [Moles/Vol] 137 mmol/L 135 - 145 mmol/L [facility] Urea nitrogen [Mass/Vol] 9 mg/dL 8 - 25 mg/dL [facility] Urea nitrogen/Creatinine [Mass ratio] 20.9 mg/mg High [facility] DRUGS OF ABUSE SCREEN, URINE on 06-14-2019 Amphetamines Ql (U) None Detected None Detected [facility] Comment on above: Urine Amphetamine Cu toff: < 1000 ng/mL = None Detected Barbiturates Screen Ql (U) None Detected None Detected [facility] Comment on above: Urine Barbiturates C utoff: < 200 ng/mL = None Detected Benzodiazepines Ql (U) None Detected None Detected [facility] Comment on above: Urine Benzodiazepine Cutoff: < 300 ng/mL = None Detected Cannabinoids Screen Ql (U) None Detected None Detected [facility] Comment on above: Urine Cannabinoids C utoff: < 50 ng/mL = None Detected Cocaine Ql (U) Positive Abnormal None Detected [facility] Comment on above: Urine Cocaine Cutoff : < 300 ng/mL = None Detected Interpretation and review of laboratory results Abnormal [facility] Methadone Screen Ql (U) None Detected Non e Detected [facility] Comment on above: Urine Methadone Cuto ff: < 300 ng/mL = None Detected Opiates Screen Ql (U) None Detected None Detected [facility] Comment on above: Urine Opiates Cutoff : < 300 ng/mL = None Detected Oxycodone Ql (U) None Detected None Detected [facility] Comment on above: Urine Oxycodone Cuto ff: < 100 ng/mL = None Detected Screen results should be used for treatment purposes only. Specimen will be kept for 2 weeks, if the sample is adequate. Confirmation testing can be initiated by calling the lab within 2 weeks. [facility] HEPATITIS PANEL, ACUTEon HAV IgM Ql (S) Negative Negative [facility] HBV core IgM Ql (S) Negative Negative [facility] HBV surface Ag Ql (S) Negative Negative [facility] HCV Ab Ql (S) Positive Abnormal Negative [facility] Comment on above: A positive antibody test requires additional follow-up testing, Hepatitis C Virus Quantitation, to determine if a person is currently infected with Hepatitis C. Interpretation and review of laboratory results Abnormal [facility] Test performed using Constantin DEVIKA immunoassay system [facility] Lactic Acid, Plasmaon 2019 Interpretation and review of laboratory results Normal [facility] Lactate [Moles/Vol] 0.8 mmol/L 0.6 - 2 mmol/L [facility] MORPHOLOGYon 06-14-2019 Platelets LM Ql (Bld) Normal Normal [facility] RBC morphology finding Nom (Bld) Normal [facility] MRCPon 06-14-2019 EXAMINATION: MRCP 03/15/2024 HISTORY: [...] Axial T1-weighted images were obtained in- and [id number]. Axial diffusion-weighted imaging was also performed. FINDINGS: The liver overall appears enlarged with the right hepatic lobe measuring 22.6 cm pxlicfof-aw-nehdfuk r. The spleen measures 14.6 cm lzobarcd-oz-jggoqvh r and is also mildly enlarged. There [...] the right kidney. Bowel pattern is nonobstructive. [facility] 1. Re-demonstration of diffuse periportal edema as well as significant circumferential gallbladder wall edema similar to that seen on prior CT study. 2. Mild hepatosplenomegaly. 3. No obvious gallstones. Negative for biliary or pancreatic ductal dilatation. Negative for choledocholithiasis . 4. Trace volume of abdominal ascites. [employer] Workstation ID: [id number] [facility] Interface, Rad In E-Signi Speechq - 06/14/2019 4:45 PM EDT EXAMINATION: MR [...] Axial T1-weighted images were obtained in- and [id number]. Axial diffusion-weighted imaging was also performed. FINDINGS: The liver overall appears enlarged with the right hepatic lobe measuring 22.6 cm wtlpnmlb-uj-xscuuur r. The spleen measures 14.6 cm awekmxco-xz-nuvcduh r and is also mildly enlarged. There [...] . 4. Trace volume of abdominal ascites. [employer] Workstation ID: [id number] [facility] Manual Differentialon 2019 Basophils (Bld) [#/Vol] 0.00 10*3/uL [facility] Basophils/100 WBC (Bld) 0.0 % [facility] Eosinophils (Bld) [#/Vol] 0.00 10*3/uL [facility] Eosinophils/100 WBC (Bld) 0.0 % [facility] Lymphocytes (Bld) [#/Vol] 3.28 10*3/uL [facility] Lymphocytes/100 WBC (Bld) 37.0 % [facility] Monocytes (Bld) [#/Vol] 0.44 10*3/uL [facility] Monocytes/100 WBC (Bld) 6.0 % [facility] Neutrophils (Bld) [#/Vol] 3.57 10*3/uL [facility] Neutrophils/100 WBC (Bld) 49.0 % [facility] Variant lymphocytes/100 WBC (Bld) 8.0 % [facility] PT/INRon 06-14-2019 INR Coag (PPP) [Relative time] 1.3 {INR} [facility] Interpretation and review of laboratory results Abnormal [facility] PT Coag (PPP) [Time] 15.5 s [facility] During the induction phase of oral anticoagulation, the INR may not reflect the anticoagulation status of the patient. Therapeutic ranges for INR's are: Most clinical situations: INR 2.0-3.0 Mechanical Prosthetic Valve: INR 2.5-3.5 Critical: INR >5.0 [facility] Protime-INRon 06-14-2019 INR Coag (PPP) [Relative time] 1.2 {INR} [place] Comment on above: * THERAPY INDICATIONS * REFERENCE RANGES Pts not on anti-coagulants 1.0 - 1.5 INR Low risk pts on anti-coagulants 2.0 - 3.0 INR High risk pts on anti-coagulants 2.5 - 3.5 INR Prevention of atrial thrombo-embolism 3.0 - 4.5 INR Interpretation and review of laboratory results Abnormal [place] PT Coag (PPP) [Time] 11.7 s [place] Salicylate Levelon 0 Interpretation and review of laboratory results Abnormal [facility] Salicylates [Mass/Vol] mg/dL Low 10 - 20 mg/dL [facility] URINALYSISon 06-14-2019 Bacteria Auto Ql (U) Rare Abnormal None Se en /hpf [facility] Bilirubin Ql (U) Positive Abnormal Negative [facility] th Comment on above: False positive urine bilirubins can occur in the setting of a large amount of hemoglobin and secondary to medications including anti-inflammatory agents, rifampin, and pyridium. Clarity Refractometry automated (U) Clear Clear [facility] Color (U) Erica Abnormal Colorless, Yellow [facility] Epithelial cells.squamous Auto (Urine sed) [#/Area] 4 [facility] Glucose Auto test strip (U) [Mass/Vol] Negative Negative mg/dL [facility] Hemoglobin Auto test strip Ql (U) Negative Negative [facility] Interpretation and review of laboratory results Abnormal [facility] Ketones (U) [Mass/Vol] >=80 Abnormal Negat krystal mg/dL [facility] Leukocyte esterase Auto test strip Ql (U) Negative Negative [facility] Mucus Auto (Urine sed) [#/Area] Rare None Seen, Rare /lpf [facility] Nitrite Auto test strip Ql (U) Negative Negative [facility] pH (U) 6.0 [pH] [facility] Protein (U) [Mass/Vol] 30 Abnormal Negat krystal mg/dL [facility] Comment on above: False positive resul ts may occur in urines with large amounts of hemoglobin, pH greater than 8.0, contrast medium, or disinfectants including ammonium compounds. RBC Auto (Urine sed) [#/Area] 2 [facility] Specific gravity (U) [Rel density] 1.028 High [facility] Urobilinogen (U) [Mass/Vol] >=4.0 Abnormal <2.0 mg/dL [facility] WBC Auto (Urine sed) [#/Area] 2 [facility] Microscopic examination is performed on all urinalysis samples and only positive findings are reported. The test for blood on the chemical analytic portion of urinalysis may also be positive due to hemoglobinuria and myoglobinuria and if red blood cells are present they are quantified by microscopic examination. [facility] US ABDOMEN LIMITED STUDYon 0 06-14-2019 [...] liver likely small hemangioma. Workstation ID: [id number] [employer] EXAMINATION: US ABDOMEN LIMITED STUDY HISTORY: RUQ [...] measures 10.7 cm in length. No hydronephrosis. [facility] 1. Contracted gallbladder limits evaluation. No cholelithiasis identified. Nonspecific edematous gallbladder wall thickening and reported positive sonographic Short's sign, cannot exclude acalculus cholecystitis. No biliary ductal dilatation. 2. 1.3 cm echogenic lesion left lobe of the liver likely small hemangioma. Workstation ID: [id number] [facility] Amylaseon 06-13-2019 Amylase [Catalytic activity/Vol] 22 U/L Low 28 - 100 U/L [place] CBC Auto Differentialon Basophils (Bld) [#/Vol] 0.00 10*3/uL [place] Basophils/100 WBC (Bld) 1 % 0 - 2 % M [place] Differential Type YES [place] Eosinophils (Bld) [#/Vol] 0.00 10*3/uL [place] Eosinophils/100 WBC (Bld) 0 % 0 - 5 % [place] Erythrocyte distribution width (RBC) [Ratio] 14.9 % 12.1 - 15.2 % [place] Hematocrit (Bld) [Volume fraction] 43.3 % 36 - 46 % [place] Hemoglobin (Bld) [Mass/Vol] 14.3 g/dL 12 - 16 g/dL [place] Lymphocytes (Bld) [#/Vol] 2.50 10*3/uL [place] Lymphocytes/100 WBC (Bld) 30 % 15 - 40 % [place] MCH (RBC) [Entitic mass] 28.8 pg 26 - 34 pg [place] MCHC (RBC) [Mass/Vol] 33.1 g/dL 31 - 3 7 g/dL [place] MCV (RBC) [Entitic vol] 87.2 fL 80 - 100 fL [place] Monocytes (Bld) [#/Vol] 0.70 10*3/uL [place] Monocytes/100 WBC (Bld) 8 % 4 - 8 % [place] Platelet mean volume (Bld) [Entitic vol] NOT REPORTED 6 - 12 fL [place] Platelets (Bld) [#/Vol] 203 10*3/uL [place] Platelets (Bld) [#/Vol] NOT REPORTED [place] RBC (Bld) [#/Vol] 4.97 10*6/uL 4 - 5.2 m/uL [place] RBC morphology finding Nom (Bld) NOT REPORTED [place] Segmented neutrophils/100 WBC (Bld) 61 % 47 - 75 % [place] Segs Absolute 5.20 [place] WBC (Bld) [#/Vol] 8.4 10*3/uL [place] WBC (Bld) [#/Vol] NOT REPORTED per 100 WBC [place] WBC Morphology NOT REPORTED [place] Comprehensive Metabolic Pane l w/ Reflex to MGon 06-13-2019 Albumin [Mass/Vol] 4.1 g/dL 3.5 - 5.2 g/dL [place] Albumin/Globulin [Mass ratio] NOT REPORTED [place] ALP [Catalytic activity/Vol] 255 U/L High 35 - 104 U/L [place] ALT [Catalytic activity/Vol] 1116 U/L High 5 - 33 U/L [place] Anion gap [Moles/Vol] 17 mmol/L 9 - 17 mmol/L [place] AST [Catalytic activity/Vol] 665 U/L High <32 [place] Bilirubin Ql (U) 6.52 mg/dL High 0.3 - 1.2 mg/dL [place] Bun/Cre Ratio 17 [place] Calcium [Mass/Vol] 10.1 mg/dL 8.6 - 10. 4 mg/dL [place] Chloride [Moles/Vol] 95 mmol/L Low 98 - 10 7 mmol/L [place] CO2 [Moles/Vol] 24 mmol/L 20 - 31 mmol/L [place] Creatinine [Mass/Vol] 0.82 mg/dL 0.5 - 0.9 mg/dL [place] GFR >60 >60 mL/min [place] GFR Non- >60 >60 mL/min [place] GFR/1.73 sq M predicted among non-blacks MDRD (S/P/Bld) [Vol rate/Area] [place] Comment on above: Average GFR for 20-2 9 years old: 116 mL/min/1.73sq m Chronic Kidney Disease: <60 mL/min/1.73sq m Kidney failure: <15 mL/min/1.73sq m eGFR calculated using average adult body mass. Additional eGFR calculator available at: http://www.[employer]/multiple_crcl_2012.htm GFR/1.73 sq M predicted among non-blacks MDRD (S/P/Bld) [Vol rate/Area] NOT REPORTED [place] Glucose [Mass/Vol] 134 mg/dL High 70 - 99 mg/dL [place] Interpretation and review of laboratory results Abnormal [place] Potassium [Moles/Vol] 3.7 mmol/L 3.7 - 5.3 mmol/L [place] Protein [Mass/Vol] 8.1 g/dL 6.4 - 8.3 g/dL [place] Sodium [Moles/Vol] 136 mmol/L 135 - 144 mmol/L [place] Urea nitrogen [Mass/Vol] 14 mg/dL 6 - 20 mg/dL [place] Drug screen multi urineon Amphetamine Screen, Ur Negative NEGATIVE [place] Comment on above: (Positive cutoff 500 ng/mL) Barbiturate Screen, Ur Negative NEGATIVE [place] Comment on above: (Positive cutoff 200 ng/mL) Benzodiazepine Screen, Urine Negative NEGATIVE [place] Comment on above: (Positive cutoff 150 ng/mL) Buprenorphine Urine NOT REPORTED NEGATIVE [place] Cannabinoid Scrn, Ur Negative NEGATIVE [place] Comment on above: (Positive cutoff 50 ng/mL) Cocaine Metabolite, Urine Positive Abnormal NEGATIVE [place] Comment on above: (Positive cutoff 150 ng/mL) Interpretation and review of laboratory results Abnormal [place] MDMA, Urine NOT REPORTED NEGATIVE [place] Methadone Screen, Urine Negative NEGATIVE [place] Comment on above: (Positive cutoff 200 ng/mL) Methamphetamine, Urine Negative NEGATIVE [place] Comment on above: (Positive cutoff 500 ng/mL) Opiates, Urine Positive Abnormal NEGATIVE [place] Comment on above: (Positive cutoff 100 ng/mL) Oxycodone Screen, Ur Negative NEGATIVE [place] Comment on above: (Positive cutoff 100 ng/mL) Phencyclidine, Urine Negative NEGATIVE [place] Comment on above: (Positive cutoff 25 ng/mL) Propoxyphene, Urine Negative NEGATIVE [place] Comment on above: (Positive cutoff 300 ng/mL) Test Information NOT REPORTED [place] Tricyclic Antidepressants, Urine Negative NEGATIVE [place] Comment on above: (Positive cutoff 300 ng/mL) Drug screen results are to be used for medical purposes only. All positive results are unconfirmed. Testing for employment or legal uses should be sent to a reference laboratory for confirmation. Lactic Acidon 06-13-2019 Lactate [Moles/Vol] 1.2 mmol/L 0.5 - 2. 2 mmol/L [place] Lipaseon 06-13-2019 Lipase [Catalytic activity/Vol] 8 U/L Low 13 - 60 U/L [place] Microscopic Urinalysison Amorphous, UA NOT REPORTED None [place] Bacteria, UA 2+ Abnormal None [place] Casts UA 5 TO 10 HYALINE /LPF [place] Casts UA 2 TO 5 WAXY /LPF [place] Crystals, UA NOT REPORTED None /HPF [place] Epithelial Cells UA LOADED /HPF [place] Interpretation and review of laboratory results Abnormal [place] Mucus, UA 4+ Abnormal None [place] Other Observations UA NOT REPORTED NOT REQ. [place] RBC (U) [#/Vol] 5 TO 10 [place] Renal Epithelial, UA NOT REPORTED 0 /HPF [place] Trichomonas, UA NOT REPORTED None [place] WBC, UA 10 TO 20 0 /HPF [place] Yeast, UA NOT REPORTED None [place] - [place] Otheron 06-13-2019 Interpretation and review of laboratory results Abnormal [place] Immature granulocytes (Bld) [#/Vol] NOT REPORTED 0 % [place] , Urineon 0 Beta HCG ( test) Ql (U) Negative NEGATIVE [place] Urinalysis, reflex to micros copicon 06-13-2019 Bilirubin Urine 3+ Abnormal NEGATIVE [place] Color, UA BROWN Abnormal YELLOW [place] Glucose, Ur Negative NEGATIVE [place] Interpretation and review of laboratory results Abnormal [place] Ketones Ql (U) MODERATE Abnormal NEGATIVE [place] Leukocyte esterase Test strip Ql (U) 1+ Abnormal NEGATIVE [place] Nitrite, Urine Positive Abnormal NEGATIVE [place] pH, UA 5.0 [place] Protein (U) [Mass/Vol] 1+ Abnormal NEGATIVE [place] Specific [place], UA 1.020 [place] Turbidity UA CLEAR CLEAR [place] Urinalysis Comments [place] Urine Hgb TRACE Abnormal NEGATIVE [place] Urobilinogen, Urine 12 mg/dL Abnormal Normal [place] Vital Signs Date Time Vital Sign Value Performing Clinician Facility 05-13-2023 11:27-0500 Body temperature 98.6 [degF] Jonathan [facility] 05-13-2023 11:27-0500 Diastolic blood pressure 78 mm[Hg] Jonathan [facility] 05-13-2023 11:27-0500 Heart rate 83 /min Jonathan Martinez [facility] 05-13-2023 11:27-0500 Respiratory rate 18 /min Jonathan Martinez [facility] 05-13-2023 11:27-0500 SaO2% (BldA) [Mass fraction] 97 % Jonathan Martinez [facility] 05-13-2023 11:27-0500 Systolic blood pressure 113 mm[Hg] Jonathan Martinez [facility] 05-11-2023 21:49-0500 Body temperature 98.06 [degF] [facility] 05-11-2023 21:49-0500 Diastolic blood pressure 84 mm[Hg] [facility] 05-11-2023 21:49-0500 Heart rate 105 /min [facility] 05-11-2023 21:49-0500 Respiratory rate 17 /min [facility] 05-11-2023 21:49-0500 SaO2% (BldA) [Mass fraction] 97 % [facility] 05-11-2023 21:49-0500 Systolic blood pressure 130 mm[Hg] [facility] 05-10-2023 11:41-0500 Body height 160 cm Chet Berumen DO Work Phone: [facility] [employer] 05-10-2023 11:41-0500 Body mass index (BMI) [Ratio] 44.29 kg/m2 Chet Berumne DO Work Phone: [facility] [employer] 05-10-2023 11:41-0500 Body temperature 97.9 [degF] Chet Berumen DO Work Phone: [facility] [employer] 05-10-2023 11:41-0500 Body weight 113.4 kg Chet Berumen DO Work Phone: [employer] 05-10-2023 11:41-0500 Diastolic blood pressure 76 mm[Hg] Chet Berumen DO Work Phone: [employer] 05-10-2023 11:41-0500 Heart rate 94 /min Chet Berumen DO Work Phone: [facility] [employer] 05-10-2023 11:41-0500 Respiratory rate 18 /min Chet Berumen DO Work Phone: [employer] 05-10-2023 11:41-0500 SaO2% (BldA) [Mass fraction] 96 % Chet Berumen DO Work Phone: [employer] 05-10-2023 11:41-0500 Systolic blood pressure 146 mm[Hg] Chet Berumen DO Work Phone: [employer] 09-04-2022 11:27-0400 Body height 160 cm Erin Brush MD Work Phone: [employer] 09-04-2022 11:27-0400 Body mass index (BMI) [Ratio] 44.99 kg/m2 Erin Brush MD Work Phone: [employer] 09-04-2022 11:27-0400 Body temperature 98.2 [degF] Erin Brush MD Work Phone: [employer] 09-04-2022 11:27-0400 Body weight 115.21 kg Erin Brush MD Work Phone: [employer] 09-04-2022 11:27-0400 Diastolic blood pressure 71 mm[Hg] Erin Brush MD Work Phone: [employer] 09-04-2022 11:27-0400 Heart rate 88 /min Erin Brush MD Work Phone: [employer] 09-04-2022 11:27-0400 Respiratory rate 18 /min Erin Brush MD Work Phone: [employer] 09-04-2022 11:27-0400 SaO2% (BldA) [Mass fraction] 97 % Erin Brush MD Work Phone: [employer] 09-04-2022 11:27-0400 Systolic blood pressure 124 mm[Hg] Erin Brush MD Work Phone: [employer] 06-29-2022 09:49-0400 Diastolic blood pressure 57 mm[Hg] Todd Smatr [facility] 06-29-2022 09:49-0400 Heart rate 73 /min Todd Smart [facility] 06-29-2022 09:49-0400 Mean blood pressure 76 mm[Hg] Todd Smart [facility] 06-29-2022 09:49-0400 Respiratory rate 16 /min Todd Smart [facility] 06-29-2022 09:49-0400 Systolic blood pressure 113 mm[Hg] Todd Smart [facility] 05-19-2022 19:28-0400 Body height 160 cm Erin Brush MD Work Phone: [employer] 05-19-2022 19:28-0400 Body mass index (BMI) [Ratio] 45.17 kg/m2 Erin Brush MD Work Phone: [employer] 05-19-2022 19:28-0400 Body weight 115.67 kg Erin Brush MD Work Phone: [employer] 05-19-2022 19:25-0400 Body temperature 98.29 [degF] Erin Brush MD Work Phone: [employer] 05-19-2022 19:25-0400 Diastolic blood pressure 68 mm[Hg] Erin Brush MD Work Phone: [employer] 05-19-2022 19:25-0400 Heart rate 78 /min Erin Brush MD Work Phone: [employer] 05-19-2022 19:25-0400 Respiratory rate 16 /min Erni Brush MD Work Phone: [employer] 05-19-2022 19:25-0400 SaO2% (BldA) [Mass fraction] 98 % Erin Brush MD Work Phone: [employer] 05-19-2022 19:25-0400 Systolic blood pressure 110 mm[Hg] Erin Brush MD Work Phone: [employer] 05-11-2022 19:17-0500 Body height 160 cm Allegra Quinn MD Work Phone: [facility] [employer] 05-11-2022 19:17-0500 Body mass index (BMI) [Ratio] 45.06 kg/m2 Allegra Quinn MD Work Phone: [employer] 05-11-2022 19:17-0500 Body temperature 98.01 [degF] Allegra Quinn MD Work Phone: [employer] 05-11-2022 19:17-0500 Body weight 115.39 kg Allegra Quinn MD Work Phone: [employer] 05-11-2022 19:17-0500 Diastolic blood pressure 91 mm[Hg] Allegra Quinn MD Work Phone: [employer] 05-11-2022 19:17-0500 Heart rate 78 /min Allegra Quinn MD Work Phone: [employer] 05-11-2022 19:17-0500 Respiratory rate 18 /min Allegra Quinn MD Work Phone: [employer] 05-11-2022 19:17-0500 SaO2% (BldA) [Mass fraction] 96 % Allegra Quinn MD Work Phone: [employer] 05-11-2022 19:17-0500 Systolic blood pressure 121 mm[Hg] Allegra Quinn MD Work Phone: [employer] 10-12-2021 18:31-0400 Heart rate 93 /min Rishabh Mancini MD Work Phone: [employer] 10-12-2021 18:31-0400 Respiratory rate 16 /min Rishabh Mancini MD Work Phone: [employer] 10-12-2021 18:31-0400 SaO2% (BldA) [Mass fraction] 97 % Rishabh Mancini MD Work Phone: [employer] 10-12-2021 18:12-0400 Body height 160 cm Rishabh Mancini MD Work Phone: [employer] 10-12-2021 18:12-0400 Body mass index (BMI) [Ratio] 47.12 kg/m2 Rishabh Mancini MD Work Phone: [employer] 10-12-2021 18:12-0400 Body temperature 99.19 [degF] Rishabh Mancini MD Work Phone: [employer] 10-12-2021 18:12-0400 Body weight 120.66 kg Rishabh Mancini MD Work Phone: [employer] 10-12-2021 18:12-0400 Diastolic blood pressure 77 mm[Hg] Rishabh Mancini MD Work Phone: [employer] 10-12-2021 18:12-0400 Systolic blood pressure 126 mm[Hg] Rishabh Mancini MD Work Phone: [facility] [employer] 07-22-2021 10:38-0400 Body height 160 cm Clark Moser MD Work Phone: [employer] 07-22-2021 10:38-0400 Body mass index (BMI) [Ratio] 47.63 kg/m2 Clark Moser MD Work Phone: [employer] 07-22-2021 10:38-0400 Body temperature 97.3 [degF] Clark Moser MD Work Phone: [employer] 07-22-2021 10:38-0400 Body weight 121.97 kg Clark Moser MD Work Phone: [employer] 07-22-2021 10:38-0400 Diastolic blood pressure 88 mm[Hg] Clark Moser MD Work Phone: [facility] 07-22-2021 10:38-0400 Heart rate 104 /min Clark Moser MD Work Phone: [facility] 07-22-2021 10:38-0400 Respiratory rate 18 /min Clark Moser MD Work Phone: [facility] 07-22-2021 10:38-0400 SaO2% (BldA) [Mass fraction] 95 % Clark Moser MD Work Phone: [facility] 07-22-2021 10:38-0400 Systolic blood pressure 126 mm[Hg] Clark Moser MD Work Phone: [facility] 05-15-2021 09:11-0500 Body height [address] [facility] 05-14-2021 10:41-0500 Body height 160 cm Farhat Vang MD Work Phone: [facility] 05-14-2021 10:41-0500 Body mass index (BMI) [Ratio] 44.96 kg/m2 Farhat Vang MD Work Phone: [facility] 05-14-2021 10:41-0500 Body temperature 97.81 [degF] Farhat Vang MD Work Phone: [facility] 05-14-2021 10:41-0500 Body weight 115.12 kg Farhta Vang MD Work Phone: [facility] 05-14-2021 10:41-0500 Diastolic blood pressure 78 mm[Hg] Farhat Vang MD Work Phone: [facility] 05-14-2021 10:41-0500 Heart rate 98 /min Farhat Vang MD Work Phone: [facility] 05-14-2021 10:41-0500 Respiratory rate 18 /min Farhat Vang MD Work Phone: [facility] 05-14-2021 10:41-0500 SaO2% (BldA) [Mass fraction] 97 % Farhat Vang MD Work Phone: [facility] 05-14-2021 10:41-0500 Systolic blood pressure 124 mm[Hg] Farhat Vang MD Work Phone: [facility] 04-16-2021 10:15-0500 Body height 160 cm Farhat Vang MD Work Phone: [facility] 04-16-2021 10:15-0500 Body mass index (BMI) [Ratio] 44.44 kg/m2 Farhat Vang MD Work Phone: [facility] 04-16-2021 10:15-0500 Body temperature 98.01 [degF] Farhat Vang MD Work Phone: [facility] 04-16-2021 10:15-0500 Body weight 113.81 kg Farhat Vang MD Work Phone: [facility] 04-16-2021 10:15-0500 Diastolic blood pressure 78 mm[Hg] Farhat Vang MD Work Phone: [facility] 04-16-2021 10:15-0500 Heart rate 100 /min Farhat Vang MD Work Phone: [facility] 04-16-2021 10:15-0500 Respiratory rate 18 /min Farhat Vang MD Work Phone: [facility] 04-16-2021 10:15-0500 SaO2% (BldA) [Mass fraction] 96 % Farhat Vang MD Work Phone: [facility] 04-16-2021 10:15-0500 Systolic blood pressure 122 mm[Hg] Farhat Vang MD Work Phone: [facility] 03-23-2021 12:40-0500 Body height 160 cm Allegra Quinn MD Work Phone: [facility] 03-23-2021 12:40-0500 Body mass index (BMI) [Ratio] 44.46 kg/m2 Allegra Quinn MD Work Phone: [facility] 03-23-2021 12:40-0500 Body temperature 99.7 [degF] Allegra Quinn MD Work Phone: [employer] 03-23-2021 12:40-0500 Body weight 113.85 kg Allegra Quinn MD Work Phone: [employer] 03-23-2021 12:40-0500 Diastolic blood pressure 74 mm[Hg] Allegra Quinn MD Work Phone: [employer] 03-23-2021 12:40-0500 Heart rate 107 /min Allegra Quinn MD Work Phone: [employer] 03-23-2021 12:40-0500 Respiratory rate 16 /min Allegra Quinn MD Work Phone: [employer] 03-23-2021 12:40-0500 SaO2% (BldA) [Mass fraction] 96 % Allegra Quinn MD Work Phone: [employer] 03-23-2021 12:40-0500 Systolic blood pressure 131 mm[Hg] [facility] 01-15-2021 10:43-0500 Body height 160 cm Holland Ann MD Work Phone: [facility] 01-15-2021 10:43-0500 Body mass index (BMI) [Ratio] 42.55 kg/m2 Holland Ann MD Work Phone: [facility] 01-15-2021 10:43-0500 Body temperature 97.39 [degF] Holland Ann MD Work Phone: [facility] 01-15-2021 10:43-0500 Body weight 108.95 kg Holland Ann MD Work Phone: [facility] 01-15-2021 10:43-0500 Diastolic blood pressure 66 mm[Hg] Holland Ann MD Work Phone: [facility] 01-15-2021 10:43-0500 Heart rate 101 /min Holland Ann MD Work Phone: [facility] 01-15-2021 10:43-0500 SaO2% (BldA) [Mass fraction] 96 % Holland Ann MD Work Phone: [facility] 01-15-2021 10:43-0500 Systolic blood pressure 112 mm[Hg] Holland Ann MD Work Phone: [facility] 12-27-2020 18:15-0400 Body temperature 98.49 [degF] Wayne Springer MD Work Phone: [employer] Work Phone: 12-27-2020 18:15-0400 Diastolic blood pressure 77 mm[Hg] Wayne Springer MD Work Phone: [employer] Work Phone: Comment on above: Simultaneous filing. User may not have s een previous data. 12-27-2020 18:15-0400 Heart rate 98 /min Wayne Springer MD Work Phone: [employer] Work Phone: 12-27-2020 18:15-0400 Respiratory rate 20 /min Wayne Springer MD Work Phone: [employer] Work Phone: 12-27-2020 18:15-0400 SaO2% (BldA) [Mass fraction] 95 % Wayne Springer MD Work Phone: [employer] Work Phone: Comment on above: Simultaneous filing. User may not have s een previous data. 12-27-2020 18:15-0400 Systolic blood pressure 107 mm[Hg] Wayne Springer MD Work Phone: [employer] Work Phone: Comment on above: Simultaneous filing. User may not have s een previous data. 11-20-2020 21:07-0400 Body height 160 cm Allegra Quinn MD Work Phone: [employer] Work Phone: 11-20-2020 21:07-0400 Body mass index (BMI) [Ratio] 38.62 kg/m2 Allegra Quinn MD Work Phone: [employer] Work Phone: 11-20-2020 21:07-0400 Body temperature 98.6 [degF] Allegra Quinn MD Work Phone: [employer] Work Phone: 11-20-2020 21:07-0400 Body weight 98.88 kg Allegra Quinn MD Work Phone: [employer] Work Phone: 11-20-2020 21:07-0400 Diastolic blood pressure 65 mm[Hg] Allegra Quinn MD Work Phone: [employer] Work Phone: 11-20-2020 21:07-0400 Heart rate 84 /min Allegra Quinn MD Work Phone: [employer] Work Phone: 11-20-2020 21:07-0400 Respiratory rate 16 /min Allegra Quinn MD Work Phone: [employer] Work Phone: 11-20-2020 21:07-0400 SaO2% (BldA) [Mass fraction] 97 % Allegra Quinn MD Work Phone: [employer] Work Phone: 11-20-2020 21:07-0400 Systolic blood pressure 113 mm[Hg] Allegra Quinn MD Work Phone: [employer] Work Phone: 11-07-2020 16:28-0400 Body height 160 cm Nicholas Roger MD Work Phone: [employer] Work Phone: 11-07-2020 16:28-0400 Body mass index (BMI) [Ratio] 38.26 kg/m2 Nicholas Roger MD Work Phone: [employer] Work Phone: 11-07-2020 16:28-0400 Body temperature 98.8 [degF] Nicholas Roger MD Work Phone: [employer] Work Phone: 11-07-2020 16:28-0400 Body weight 97.98 kg Nicholas Roger MD Work Phone: [employer] Work Phone: 11-07-2020 16:28-0400 Diastolic blood pressure 71 mm[Hg] Nicholas Roger MD Work Phone: [employer] Work Phone: 11-07-2020 16:28-0400 Heart rate 98 /min Nicholas Roger MD Work Phone: [employer] Work Phone: 11-07-2020 16:28-0400 Respiratory rate 18 /min Nicholas Roger MD Work Phone: [employer] Work Phone: 11-07-2020 16:28-0400 SaO2% (BldA) [Mass fraction] 94 % Nicholas Roger MD Work Phone: [employer] Work Phone: 11-07-2020 16:28-0400 Systolic blood pressure 120 mm[Hg] Nicholas Roger MD Work Phone: [employer] Work Phone: 07-09-2020 10:52-0400 Body height 160 cm Zelda Bautista CNP Work Phone: [facility] 07-09-2020 10:52-0400 Body mass index (BMI) [Ratio] 41.27 kg/m2 Zelda Bautista CNP Work Phone: [facility] 07-09-2020 10:52-0400 Body weight 105.69 kg Zelda Bautista CNP Work Phone: [facility] 07-09-2020 10:52-0400 Diastolic blood pressure 70 mm[Hg] Zelda Bautista CNP Work Phone: [facility] 07-09-2020 10:52-0400 Heart rate 97 /min Zelda Bautista CNP Work Phone: [facility] 07-09-2020 10:52-0400 Systolic blood pressure 101 mm[Hg] Zelda Bautista CNP Work Phone: [facility] 06-24-2020 09:48-0400 Body mass index (BMI) [Ratio] 40.92 kg/m2 Allegra Quinn MD Work Phone: [employer] Work Phone: 06-24-2020 09:48-0400 Body temperature 97.9 [degF] Allegra Quinn MD Work Phone: [employer] Work Phone: 06-24-2020 09:48-0400 Body weight 104.78 kg Allegra Quinn MD Work Phone: [employer] Work Phone: 06-24-2020 09:48-0400 Diastolic blood pressure 64 mm[Hg] Allegra Quinn MD Work Phone: [employer] Work Phone: 06-24-2020 09:48-0400 Heart rate 120 /min Allegra Quinn MD Work Phone: [employer] Work Phone: 06-24-2020 09:48-0400 Respiratory rate 18 /min Allegra Quinn MD Work Phone: [employer] Work Phone: 06-24-2020 09:48-0400 SaO2% (BldA) [Mass fraction] 100 % Allegra Quinn MD Work Phone: [employer] Work Phone: 06-24-2020 09:48-0400 Systolic blood pressure 115 mm[Hg] Allegra Quinn MD Work Phone: [facility] [employer] Work Phone: 06-09-2020 10:44-0400 Body height 160 cm Lelo Gallegos MD Work Phone: [facility] 06-09-2020 10:44-0400 Body mass index (BMI) [Ratio] 41.27 kg/m2 Lelo Gallegos MD Work Phone: [facility] 06-09-2020 10:44-0400 Body weight 105.69 kg Lelo Gallegos MD Work Phone: [facility] 06-09-2020 10:44-0400 Diastolic blood pressure 75 mm[Hg] Lelo Gallegos MD Work Phone: [facility] 06-09-2020 10:44-0400 Heart rate 116 /min Lelo Gallegos MD Work Phone: [facility] 06-09-2020 10:44-0400 Systolic blood pressure 110 mm[Hg] Lelo Gallegos MD Work Phone: [facility] 03-26-2020 22:17-0500 Pulse (Heart Rate) 98 /min [employer] [facility], [place] 03-26-2020 21:43-0500 BP Diastolic 66 mm[Hg] [employer] [facility] , [place] 03-26-2020 21:43-0500 BP Systolic 99 mm[Hg] [employer] [facility] , [place] 03-26-2020 21:43-0500 Pulse Oximetry 95 % [employer] [facility] , [place] 03-26-2020 20:50-0500 Respiratory Rate 16 /min Brie Moreno [employer] [facility], [place] 03-26-2020 20:13-0500 BMI (Body Mass Index) 40.14 kg/m2 [employer] [facility] 03-26-2020 20:13-0500 Body Temperature 98.2 [degF] Brie Jorgensen [facility] [place] 03-26-2020 20:13-0500 Body weight 102.78 kg Brie Jorgensen [facility] , [place] 02-15-2020 18:22-0500 BMI (Body Mass Index) 39.75 kg/m2 Brie Jorgensen [facility], [place] 02-15-2020 18:22-0500 Body Temperature 98.6 [degF] Brie Jorgensen [facility] 02-15-2020 18:22-0500 Body weight 101.79 kg Brie Jorgensen [facility] , [place] 02-15-2020 18:22-0500 BP Diastolic 78 mm[Hg] [facility] [place] , [place] 02-15-2020 18:22-0500 BP Systolic 127 mm[Hg] [facility] [place] 02-15-2020 18:22-0500 Height 160 cm Brie Jorgensen [facility] , [place] 02-15-2020 18:22-0500 Pulse (Heart Rate) 92 /min Brie Jorgensen [facility], [place] 02-15-2020 18:22-0500 Pulse Oximetry 99 % Brie Jorgensen [facility] , [place] 02-15-2020 18:22-0500 Respiratory Rate 20 /min Brie Jorgensen [facility], [place] 11-20-2019 18:48-0400 BP Diastolic 75 mm[Hg] [facility] 11-20-2019 18:48-0400 BP Systolic 128 mm[Hg] Allegra Quinn [facility], [place] 11-20-2019 18:48-0400 Pulse (Heart Rate) 83 /min Allegra Quinn [facility], [place] 11-20-2019 18:48-0400 Pulse Oximetry 97 % Allegra Quinn [facility], [place] 11-20-2019 18:48-0400 Respiratory Rate 18 /min [facility] 11-20-2019 17:00-0400 BMI (Body Mass Index) 36.31 kg/m2 Allegra Quinn [facility] 11-20-2019 17:00-0400 Body Temperature 98.4 [degF] Allegra Quinn [facility] 11-20-2019 17:00-0400 Body weight 92.99 kg Allegra Quinn [facility], [place] 11-03-2019 11:37-0400 BMI (Body Mass Index) 34.47 kg/m2 [facility], [place] 11-03-2019 11:37-0400 Body Temperature 98.71 [degF] [facility], [place] 11-03-2019 11:37-0400 Body weight 88.[address] [facility], [place] 11-03-2019 11:37-0400 BP Diastolic 66 mm[Hg] [facility] [facility], [place] 11-03-2019 11:37-0400 BP Systolic 117 mm[Hg] [facility], [place] 11-03-2019 11:37-0400 Height 160 cm [place], [place] 11-03-2019 11:37-0400 Pulse (Heart Rate) 87 /min [place], [place] 11-03-2019 11:37-0400 Pulse Oximetry 99 % [facility], [place] 11-03-2019 11:37-0400 Respiratory Rate 20 /min [place], [place] 08-13-2019 19:42-0400 BMI (Body Mass Index) 31 kg/m2 [facility] 08-13-2019 19:42-0400 Body Temperature 98.6 [degF] [facility] 08-13-2019 19:42-0400 Body weight 79.38 kg [facility] 08-13-2019 19:42-0400 Height 160 cm [facility] 08-13-2019 19:40-0400 BP Diastolic 60 mm[Hg] [facility] 08-13-2019 19:40-0400 BP Systolic 156 mm[Hg] [facility] 08-13-2019 19:40-0400 Pulse (Heart Rate) 138 /min [facility] 08-13-2019 19:40-0400 Pulse Oximetry 98 % [facility] 08-13-2019 19:40-0400 Respiratory Rate 16 /min Christian Martinez [facility] 06-17-2019 12:45-0400 Respiratory Rate 18 /min [facility] 06-17-2019 07:54-0400 Body Temperature 97.81 [degF] [facility] 06-17-2019 07:54-0400 BP Diastolic 66 mm[Hg] [facility] 06-17-2019 07:54-0400 BP Systolic 99 mm[Hg] [facility] 06-17-2019 07:54-0400 Pulse (Heart Rate) 82 /min [facility] 06-17-2019 07:54-0400 Pulse Oximetry 94 % [facility] 06-14-2019 08:15-0400 BMI (Body Mass Index) 32.92 kg/m2 [facility] 06-14-2019 08:15-0400 Body weight 81.65 kg [facility] 06-14-2019 08:15-0400 Height 157.5 cm [facility] 06-14-2019 04:20-0400 Pulse (Heart Rate) 83 /min [facility] [place] 06-14-2019 04:05-0400 BP Diastolic 58 mm[Hg] [facility] [place] [facility] [place] [facility] [place] 06-14-2019 04:05-0400 BP Systolic 95 mm[Hg] [facility] [place] [facility] [place] [facility] [place] 06-14-2019 04:05-0400 Pulse Oximetry 95 % [facility] [place] [facility] , [place] 06-14-2019 01:12-0400 Respiratory Rate 18 /min [facility] [place] [facility] [place] 06-14-2019 00:10-0400 Body Temperature 100.51 [degF] [facility] [place] 06-13-2019 22:00-0400 BMI (Body Mass Index) 32.31 kg/m2 [facility] [place] [facility] [place] 06-13-2019 22:00-0400 Body weight 82.74 kg [facility] [place] [facility] [place] [facility] [place] 06-13-2019 22:00-0400 Height 160 cm [facility] [place] [facility] [place] [facility] [place] 04-28-2019 19:58-0500 Body Temperature 98.8 [degF] [facility] [place] 04-28-2019 19:58-0500 BP Diastolic 70 mm[Hg] Roslyn Jorgensen [facility] , [place] 04-28-2019 19:58-0500 BP Systolic 98 mm[Hg] Roslyn Jorgensen [facility] , [place] 04-28-2019 19:58-0500 Pulse (Heart Rate) 119 /min Roslyn Jorgensen [facility], [place] 04-28-2019 19:58-0500 Pulse Oximetry 100 % Roslyn Jorgensen [facility] , [place] 04-28-2019 19:58-0500 Respiratory Rate 30 /min Roslyn Jorgensen [facility], [place] 04-28-2019 19:54-0500 BMI (Body Mass Index) 30.65 kg/m2 Roslyn Jorgensen [facility], [place] 04-28-2019 19:54-0500 Body weight 78.47 kg Roslyn Jorgensen [facility] , [place] 04-28-2019 19:54-0500 Height 160 cm Roslyn Jorgensen [place] Encounters Encounter Date Encounter Type Care Provider Facility Start: 05-20-2023 End: 05-20-2023 ambulatory Not Available Start: 05-13-2023 End: 05-13-2023 Emergency department patient visit Jonathan Martinez Facility:[facility] Start: 05-13-2023 End: 05-13-2023 Emergency department patient visit Jonathan Martinez [facility] Start: 05-11-2023 End: 05-12-2023 Emergency department patient visit Reginaparker Britton Donnie Facility:[facility] Start: 05-11-2023 End: 05-11-2023 [facility] Start: 05-10-2023 End: 05-10-2023 Emergency department patient visit CHET BERUMEN [facility] Start: 05-10-2023 End: 05-10-2023 Emergency department patient visit CHET BERUMEN [facility] Start: 05-10-2023 End: 05-10-2023 Emergency department patient visit Chet Berumen DO Work Phone: [facility] Comment on above: Toothache (Primary D x); Dental decay Start: 12-27-2022 End: 12-28-2022 ambulatory [facility] Start: 11-23-2022 End: 11-24-2022 ambulatory [facility] Start: 09-04-2022 Emergency department patient visit LINDA SHEPPARD [facility] Start: 09-04-2022 End: 09-04-2022 Emergency department patient visit Erin Brush MD Work Phone: [facility] Comment on above: Sprain of right ankl e, unspecified ligament, initial encounter (Primary Dx) Start: 06-29-2022 End: 06-30-[address] MARK DUMONT . Facility: Start: 06-29-2022 End: 06-30-2022 ambulatory Linda Sheppard Facility:[facility] Start: 06-29-2022 End: 06-29-2022 Pain Management Todd Smart [facility] Start: 06-14-2022 End: 06-14-[address] MARK DUMONT . Facility: Start: 05-19-2022 Emergency department patient visit Khushi GUARDADO~[id number] STEVIE BRUSH [facility] Start: 05-19-2022 End: 05-19-2022 Emergency department patient visit Erin Brush MD Work Phone: [facility] Comment on above: Dry socket (Primary Dx) Start: 05-11-2022 End: 05-11-2022 Emergency department patient visit ALLEGRA QUINN [facility] Start: 05-11-2022 End: 05-11-2022 Emergency department patient visit Allegra Quinn MD Work Phone: [facility] Comment on above: Masseter muscle spas m (Primary Dx); Other acute postprocedural pain Start: 03-30-[address] MARK DUMONT . Facili ty:[facility] Start: 03-29-2022 End: 03-29-2022 Subsequent hospital visit by physician [facility] Start: 10-12-2021 End: 10-12-2021 Emergency department patient visit Rishabh Mancini MD Work Phone: [facility] Comment on above: Acute bronchitis, un specified organism (Primary Dx) Start: 07-22-2021 End: 07-22-2021 Emergency department patient visit Clark Moser MD Work Phone: [facility] Comment on above: Acute pharyngitis, u nspecified etiology (Primary Dx) Start: 07-07-2021 ambulatory BRIE ROCA [facility] Ambulatory Start: 06-18-2021 ambulatory [facility] Start: 06-17-2021 End: 06-18-2021 ambulatory [facility] Start: 05-15-2021 End: 05-19-2021 ambulatory [facility] Start: 05-15-2021 End: 05-15-2021 Nutrition therapy Farhat Vang MD Work Phone: [facility] Services Comment on above: Morbid obesity with body mass index (BMI) of 40.0 or higher (HCC) Start: 05-14-2021 End: 05-18-2021 ambulatory [facility] Start: 05-14-2021 End: 05-14-2021 Office outpatient visit 15 minutes Farhat Vang MD Work Phone: [facility] Comment on above: Anxiety and depressi on (Primary Dx); At risk for obstructive sleep apnea; Chronic bilateral low back pain without sciatica; Hepatitis C antibody positive in blood; Body mass index 40.0-44.9, adult (HCC); History of opioid abuse (HCC) Start: 04-16-2021 End: 04-20-2021 ambulatory [facility] Start: 04-16-2021 End: 04-16-2021 Initial preventive medicine new pt age 18-39yrs Farhat Vang MD Work Phone: [facility] Comment on above: Encounter for genera l adult medical examination with abnormal findings (Primary Dx); Anxiety and depression; History of opioid abuse (HCC); Morbid obesity with body mass index (BMI) of 40.0 or higher (HCC) Start: 04-16-2021 End: 04-16-2021 Patient encounter status Farhat Vang MD Work Phone: [facility] Start: 03-23-2021 End: 03-23-2021 Emergency department patient visit Allegra Quinn MD Work Phone: [facility] Comment on above: COVID-19 (Primary Dx ); Omphalitis in adult Start: 02-16-2021 End: 02-20-2021 ambulatory [facility] Start: 02-12-2021 End: 02-16-2021 ambulatory PHYS[facility]IAN [facility] Start: 02-10-2021 End: 02-14-2021 ambulatory [facility] Start: 02-02-2021 End: 02-06-2021 ambulatory PHYSICIAN [facility] Start: 01-15-2021 Documentation procedure Jeimy goodman [facility] Start: 01-15-2021 End: 01-15-2021 ambulatory HOLLAND WHIPPLE SETH [facility] Ambulatory Start: 01-15-2021 End: 01-15-2021 Office outpatient new 30 minutes Holland Ann MD Work Phone: [facility] Comment on above: Hemorrhoids, unspeci fied hemorrhoid type Start: 12-29-2020 End: 01-02-2021 ambulatory PHYSICIAN [facility] Start: 12-27-2020 End: 12-27-2020 Emergency department patient visit Wayne Springer MD Work Phone: [facility] Comment on above: Viral syndrome (Prim prakash Dx) Start: 11-20-2020 End: 11-20-2020 Emergency department patient visit Allegra Quinn MD Work Phone: [facility] Comment on above: Strain of rhomboid m uscle, initial encounter; Chest wall muscle strain, initial encounter Start: 11-07-2020 End: 11-07-2020 Emergency department patient visit Nicholas Roger MD Work Phone: [facility] Comment on above: Viral URI (Primary D x) Start: 08-28-2020 End: 08-30-2020 Evaluation and management of inpatient ROSLYN MARY [facility] [place] Start: 08-25-2020 End: 08-25-2020 ambulatory PHYSICIAN [facility] Start: 07-29-2020 End: 08-02-2020 ambulatory PHYSICIAN [facility] Start: 07-22-2020 End: 07-26-2020 ambulatory [facility] Start: 07-22-2020 End: 07-22-2020 Telemedicine consultation with patient Lelo Gallegos MD Work Phone: [facility] Services Comment on above: Diet controlled gest ational diabetes mellitus (GDM) in third trimester Start: 07-10-2020 [facility] Start: 07-09-2020 End: 07-09-2020 ambulatory ZELDA BAUTISTA [facility] Amb[facility] Start: 07-09-2020 End: 07-09-2020 Office outpatient visit 15 minutes Zelda Bautista CNP Work Phone: [facility] Comment on above: Diet controlled gest ational diabetes mellitus (GDM) in third trimester (Primary Dx) Start: 06-24-2020 End: 06-24-2020 Emergency department patient visit Allegra Quinn MD Work Phone: [facility] Comment on above: Acute frontal sinusi tis, recurrence not specified (Primary Dx) Start: 06-10-2020 End: 06-10-2020 Nutrition therapy Lelo Gallegos Work Phone: [facility] Comment on above: Diet controlled gest ational diabetes mellitus (GDM) in second trimester Start: 06-09-2020 End: 06-09-2020 Office outpatient new 30 minutes Roslyn Stevenson MD Work Phone: [facility] Comment on above: Diet controlled gest ational diabetes mellitus (GDM) in second trimester Start: 05-27-2020 End: 05-31-2020 ambulatory PHYSICIAN [facility] Start: 05-21-2020 End: 05-25-2020 ambulatory PHYSICIAN [facility] Start: 03-26-2020 End: 03-26-2020 Emergency department patient visit Brie Moreno Work Phone: [facility] Comment on above: Atypical pneumonia ( Primary Dx) Start: 02-15-2020 End: 02-15-2020 Emergency department patient visit Brie Moreno Work Phone: [facility] Comment on above: Pain, dental (Primar y Dx); Acute gingivitis; Alveolar osteitis Start: 11-20-2019 End: 11-20-2019 Emergency department patient visit Allegra Quinn Work Phone: [facility] Comment on above: Bacterial vaginosis (Primary Dx); Trichimoniasis; Furuncle of left axilla Start: 11-03-2019 End: 11-03-2019 Emergency department patient visit Wayne Wahl Juan Ramonjuan Work Phone: [facility] Comment on above: Poison arabella (Primary Dx) Start: 08-20-2019 End: 08-21-2019 Patient encounter procedure HODA CASSY [facility] Start: 08-20-2019 End: 08-20-2019 Subsequent hospital visit by physician [facility] Start: 08-13-2019 End: 08-13-2019 Emergency department patient visit Christianhansel Martinez Work Phone: [facility] Emergency Department Comment on above: Heroin abuse (HCC) ( Primary Dx) Start: 06-20-2019 End: 06-20-2019 Patient encounter procedure Alisa Palencia Work Phone: [facility] Comment on above: Hepatitis C virus in fection without hepatic coma, unspecified chronicity (Primary Dx) Start: 06-18-2019 End: 06-18-2019 Documentation procedure Taryn Torres [facility] Start: 06-18-2019 Follow-up encounter Taryn Cartagena [facility] Comment on above: Transition Of Care Start: 06-18-2019 End: 06-18-2019 Patient encounter procedure Taryn Torres [facility] Start: 06-14-2019 End: 06-17-2019 Evaluation and management of inpatient [facility] Work Phone: [facility] Comment on above: Elevated LFTs; IVDA (intravenous drug abuse) complicating (HCC) Start: 06-13-2019 End: 06-14-2019 Emergency department patient visit Brie Moreno Work Phone: [facility] Comment on above: Abdominal pain, unsp ecified abdominal location (Primary Dx); Urinary tract infection with hematuria, site unspecified; Viral hepatitis without hepatic coma, unspecified chronicity, unspecified viral hepatitis type; Polysubstance abuse (HCC); Hyperbilirubinemia Start: 04-28-2019 End: 04-28-2019 Emergency department patient visit Roslyn Keating Work Phone: [facility] Comment on above: Accidental overdose of heroin, initial encounter (HCC) (Primary Dx) Start: 12-20-2016 End: 01-02-2020 Cancer cervix - screening done Lelo Gallegos MD Work Phone: [facility] Start: 12-20-2016 End: 01-02-2020 Encounter for gynecological examination (general) (routine) without abnormal findings Jeimy Tan [employer] [facility] Procedures Date Procedure Procedure Detail Performing Clinician Start: 09-04-2022 Radex ankle complete minimum 3 views Erin Brush MD Work Phone: Start: 09-04-2022 Urine test visual color cmprsn randy Brush MD Work Phone: Start: 05-11-2022 Ct maxillofacial w/o contrast material Allegra Quinn MD Work Phone: Start: 05-11-2022 Urine test visual color cmprsn randy Quinn MD Work Phone: Start: 03-29-2022 Gonadotropin chorion ic quantitative Amrk Dustin Dumont MD Work Phone: Start: 07-22-2021 COVID-, RAPID Clark Moser MD Work Phone: Start: 07-22-2021 [place] streptococ cus group a Clark Moser MD Work Phone: Start: 03-23-2021 BASIC METABOLIC PANE L W/ REFLEX TO MG FOR LOW K Allegra Quinn MD Work Phone: Start: 03-23-2021 Blood count complete auto&auto difrntl wbc Allegra Quinn MD Work Phone: Start: 03-23-2021ID, RAPID Parish Quinn MD Work Phone: Start: 03-23-2021 [place] influenza Chr daryl Quinn MD Work Phone: Start: 12-29-2020 Microscopic observat ion [Identifier] in Cervix by Cyto stain Jeimy Tan [employer] Start: 12-27-2020 COVID-, RAPID Wayne Springer MD [...] Start: 03-17-2020 Adult depression scr eening assessment Nerisvaishnavi Ulloa RD Start: 11-20-2019 Smr prim src [...] count with white cell differential, manual Indra Pruitt Work Phone: Start: 06-14-2019 Comprehensive metabo lic 2000 panel - Serum or Plasma Indra Handylivan Work Phone: Start: 06-14-2019 Hepatitis panel measurement Indra Handylivan Work Phone: Start: 06-14-2019 INR in Platelet poor plasma by Coagulation assay Indra Handylivan Work Phone: Start: 06-14-2019 Lactate [Moles/volum e] in Serum or Plasma Indra Handylivan Work Phone: Start: 06-14-2019 Manual Differential panel - Blood Indra Handylivan Work Phone: Start: 06-14-2019 Red blood cell morphology Indra Handylivan Work Phone: Start: 06-14-2019 Salicylates [Mass/vo lume] in Serum or Plasma Indra Castro Edmond Work Phone: Start: 06-14-2019 US scan of upper abdomen Indra Castro Edmond Work Phone: Start: 06-13-2019 Ct abdomen & pelvis w/contrast material Brie Mossus Work Phone: Start: 06-13-2019 Urinalysis microscopic only Kavitha Strus Work Phone: Start: 06-13-2019 Urine test visual color cmprsn meths Kavitha Strus Work Phone: Start: 06-13-2019 Urnls dip stick/tabl [...] Human , f unction (observable entity) Todd Smart Comment on above: x4 Plan of Treatment Date Care Activity Detail Author Start: 2040 Shingles Vaccine (1 of 2) Shingles Vaccine (1 of 2) [facility]- [place], [place] Start: 12-29-2025 Screening for malignant neoplasm of cervix Pap Smear [facility] Start: 10-31-2024 Screening for malignant neoplasm of cervix Pap Smear [facility] Start: 12-30-2023 Screening for malignant neoplasm of cervix [facility] Start: 10-31-2022 Screening for malignant neoplasm of cervix [employer] Work Phone: Start: 10-05-2022 Influenza vaccination Flu vaccine (#1) [facility] Start: 04-16-2022 History and physical examination, annual for health maintenance Wellness Visit [facility] Start: 02-13-2022 Depression Remission Assessment (PHQ9) Depression Remission Assessment (PHQ9) [facility] Start: 12-29-2021 History and physical examination, annual for health maintenance Wellness Visit [facility] Start: 11-12-2021 End: 11-12-2021 Patient encounter procedure 11/12/2021 Office Visit Primary Care Farhat Vang MD [address] [address] [facility] Start: 11-05-2021 Influenza vaccination [facility] Start: 10-05-2021 Influenza vaccination Flu vaccine (#1) [facility] Start: 06-26-2021 End: 06-26-2021 Nutrition therapy 06/26/2021 Nutrition Nutrition Farhat Vang MD [address] [address] [facility] Start: 05-15-2021 End: 05-15-2021 Nutrition therapy 05/15/2021 Nutrition Nutrition [facility] Start: 05-14-2021 End: 05-14-2021 Patient encounter procedure 05/14/2021 Office Visit Primary Care Farhat Vang MD [address] [address] [facility] Start: 03-17-2021 Depression screening using PHQ-9 (Patient Health Questionnaire 9) score Depression Screening (PHQ9) [facility] Start: 01-15-2021 Depression Remission Assessment (PHQ9) Depression Remission Assessment (PHQ9) [facility] Start: 01-09-2021 Hemoglobin A1c measurement A1C [facility] Start: 12-09-2020 HbA1c (Bld) [Mass fraction] A1C [facility] Start: 12-09-2020 Hemoglobin A1c measurement A1C [facility] Start: 11-05-2020 Influenza vaccination [facility] Start: 10-31-2020 History and physical examination, annual for health maintenance Wellness Visit [facility] Start: 08-28-2020 End: 08-28-2020 Admission to same day surgery center 08/28/2020 Surgery Obstetrics Rolsyn Stevenson MD [address] [place] [address] [phone] SECTION [facility] Labor & Delivery Comment on above: SECTION Start: 08-28-2020 Subsequent hospital visit by physician 08/28/2020 Hospital Encounter Obstetrics Roslyn Stevenson MD [address] [place] [address] [phone] [facility] Labor & Delivery Start: 08-25-2020 End: 08-25-2020 Office Visit 08/25/2020 Office Visit Endocrinology Zelda Bautista, CLAM DREDGER [address] [place] [address] [phone] [facility] Start: 07-31-2020 End: 07-31-2020 Office Visit 07/31/2020 Office Visit Endocrinology Benito Krueger, CLAM DREDGER [address] [place] [address] [phone] [facility] Start: 07-29-2020 End: 07-29-2020 Patient encounter procedure 07/29/2020 Routine Obstetrics and Gynecology Regla Dias CNM [address] [place] [phone] [facility] ADVERTISING MANAGER - An Affiliate of [facility] Start: 07-22-2020 End: 07-22-2020 Telemedicine consultation with patient 07/22/2020 Telemedicine Nutrition Lelo Gallegos MD [address] [place] [address] [phone] [facility] Start: 07-17-2020 End: 07-17-2020 Patient encounter procedure 07/17/2020 Routine Obstetrics and Gynecology Yvonne Santos MD [address] [place] [phone] [facility] ADVERTISING MANAGER - An Aff[facility]ate of [facility] Start: 07-09-2020 End: 07-09-2020 Office Visit 07/09/2020 Office Visit Endocrinology Zelda Bautista, CLAM DREDGER [address] [place] [address] [phone] [facility] Start: 07-04-2020 End: 07-04-2020 Patient encounter procedure 07/04/2020 Routine Obstetrics and Gynecology Radha Pantoja MD [address] [place] [phone] [facility] ADVERTISING MANAGER - An Affiliate of [facility] Start: 06-26-2020 End: 06-26-2020 Patient encounter procedure 06/26/2020 Office Visit Endocrinology Janie Chen PA-C [address] [place] [address] [phone] [facility] Start: 06-24-2020 End: 06-24-2020 [facility] Start: 06-19-2020 End: 06-19-2020 Routine 06/19/2020 Routine Obstetrics and Gynecology Larissa, Regla Arriaga CNM [address] [place] [phone] [facility] ADVERTISING MANAGER - An Aff[facility]ate of [facility] Start: 05-17-2020 Depression screening using PHQ-9 (Patient Health Questionnaire 9) score Depression Screening (PHQ9) [facility] Start: 2020 Screening for malignant neoplasm of cervix [facility] Start: 02-26-2020 End: 02-26-2020 Initial 02/26/2020 Initial Obstetrics and Gynecology Jai Huerta MD [address] [address] [facility] ADVERTISING MANAGER Start: 11-06-2019 Influenza vaccination [place], [place] Start: 11-06-2019 Influenza vaccination given [facility] Start: 08-06-2019 Screening for malignant neoplasm of cervix Pap Smear [facility] Start: 06-20-2019 End: 06-20-2019 Office Visit 06/20/2019 Office Visit Transition of Care Talha Alisa Hauser, CLAM DREDGER [address] [facility] [address] [place] [address] [phone] [facility] Start: 11-05-2018 Influenza vaccination Flu vaccine (#1) [place], [place] Start: 11-05-2018 Influenza vaccination given Sequential Influenza Vaccine (#1) [facility] Start: 03-21-2015 Cervical cancer screen Cervical cancer screen [place], [place] Start: 03-21-2015 Screening for malignant neoplasm of cervix Cervical cancer screen [place], [place] Start: 04-05-2014 Screening for malignant neoplasm of cervix Pap smear [facility] Start: 2009 DTaP/Tdap/Td vaccine (1 - Tdap) DTaP/Tdap/Td vaccine (1 - Tdap) [place], [place] Start: 2009 Hepatitis B vaccine (1 of 3 - Risk 3-dose series) Hepatitis B vaccine (1 of 3 - Risk 3-dose series) [facility] Work Phone: Start: 2008 Hepatitis C screening Hepatitis C screen [facility] Start: 2006 COVID-19 Vaccine (1) COVID-19 Vaccine (1) [facility] Start: 2005 HIV screen HIV screen [place], [place] Start: 2005 HIV screening HIV screen [facility] Start: 2002 COVID-19 Vaccine (1) COVID-19 Vaccine (1) [facility] Start: 2002 Depression Monitoring Depression Monitoring [facility] Start: 2001 DTaP/Tdap/Td vaccine (1 - Tdap) DTaP/Tdap/Td vaccine (1 - Tdap) [place], [place] Start: 2001 DTaP/Tdap/Td vaccine (5 - Tdap) DTaP/Tdap/Td vaccine (5 - Tdap) [facility] Start: 2000 Albumin DL <= 20 mg/L (U) [Mass/Vol] Urine Microalbumin [facility] Start: 2000 Diabetic foot examination Foot Exam [facility] Start: 2000 Microalbumin measurement, urine, quantitative Urine Microalbumin [facility] Start: 2000 Ophthalmic examination and evaluation Ophthalmology Exam [facility] Start: 1996 Pneumococcal 0-64 years Vaccine (1 of 1 - PPSV23) Pneumococcal 0-64 years Vaccine (1 of 1 - PPSV23) [place], [place] Start: 1996 Pneumococcal Vaccine: Ped or At-Risk (1 of 2 - PPSV23) Pneumococcal Vaccine: Ped or At-Risk (1 of 2 - PPSV23) [facility] Start: 1995 COVID-19 Vaccine (1) COVID-19 Vaccine (1) [facility] Start: 1993 History and physical examination, annual for health maintenance Wellness Visit [facility] Start: 1991 Varicella vaccine (1 of 2 - 2-dose childhood series) Varicella vaccine (1 of 2 - 2-dose childhood series) [facility] Start: 1990 COVID-19 Vaccine (#1) COVID-19 Vaccine (#1) [facility] Start: 1990 Hepatitis B vaccine (1 of 3 - 3-dose series) Hepatitis B vaccine (1 of 3 - 3-dose series) [facility] Start: 1990 Hepatitis C screening Hepatitis C screen [facility] Start: 1990 Tetanus vaccination Tetanus: Every 10yrs [facility] Anti smooth muscle antibody IgA level Anti-Smooth Muscle Antibody Lab Add-On 06/15/2019 1:50 PM EDT [facility] Antimitochondrial antibody titer Antimitochondrial Antibody Lab Add-On 06/15/2019 1:50 PM EDT [facility] End: 11-20-2019 C.trachomatis N.gonorrhoeae DNA, Urine C.trachomatis N.gonorrhoeae DNA, Urine Microbiology STAT One Time for 1 Occurrences starting 11/20/2019 until 11/20/2019 [place] Comment on above: One Time for 1 Occurrences starting 11/05 until 11/20/2019 C.trachomatis N.gonorrhoeae DNA, Urine C.trachomatis N.gonorrhoeae DNA, Urine Microbiology Stat [employer] Label print 11/20/2019 5:55 PM EDT [place] End: 03-26-2020 Covid-19 Ambulatory Covid-19 Ambulatory Lab Routine Once for 1 Occurrences starting 03/26/2020 until 03/26/2020 [place] Comment on above: Once for 1 Occurrences starting 03/26/19 21 until 03/26/2020 Covid-19 Ambulatory Covid-19 Amb ulatory Lab Routine 03/26/2020 8:44 PM EST [place] End: 06-13-2019 Culture, Blood 1 Culture, Blood 1 Microbiology STAT One Time for 1 Occurrences starting 06/13/2019 until 06/13/2019 [place] Comment on above: One Time for 1 Occurrences starting 10/2019 until 06/13/2019 Culture, Blood 1 [place] End: 03-23-2021 Culture, Wound [facility] Work Phone: Comment on above: One Time for 1 Occurrences starting 03/07 until 03/23/2021 Cytomegalovirus DNA assay CMV DN A Detection and Quant, Blood Lab Routine 06/15/2019 1:50 PM EDT [facility] Kirsten-Hazel Virus P CR, Quantitative Kirsten-Hazel Virus PCR, Quantitative Lab Routine 06/15/2019 1:50 PM EDT [facility] End: 04-16-2022 Hemoglobin A1c/Hemoglobin.total in Blood Hemoglobin A1c Lab Routine Encounter for general adult medical examination with abnormal findings 1 Occurrences starting 04/16/2021 until 04/16/2022 [facility] Work Phone: Comment on above: 1 Occurrences starting 04/16/2021 until 04/16/2022 Hemoglobin A1c/Hemoglobin.total in Blood Hemoglobin A1c Lab Routine Encounter for general adult medical examination with abnormal findings 04/16/2021 10:58 AM [facility] End: 04-16-2022 Hepatitis C antibody measurement Hepatitis C Antibody Lab Routine Encounter for general adult medical examination with abnormal findings 1 Occurrences starting 04/16/2021 until 04/16/2022 [facility] Comment on above: 1 Occurrences starting 04/16/2021 until 04/16/2022 Hepatitis C antibody measurement Hepatitis C Antibody Lab Routine Encounter for general adult medical examination with abnormal findings 04/16/2021 10:58 AM EST [facility] MDI Treatment MDI Treatment Re spiratory Care Routine Every 6hr As Needed until discontinued starting 03/26/2020 [facility] Comment on above: Every 6hr As Needed until discontinued s tarting 03/26/2020 Nuclear Ab IF (S) [Titer] KENIA La b Add-On 06/15/2019 1:50 PM EDT [facility] End: 06-24-2020 Urinalysis, reflex to microscopic Urinalysis, reflex to microscopic Lab STAT One Time for 1 Occurrences starting 06/24/2020 until 06/24/2020 [employer] Work Phone: Comment on above: One Time for 1 Occurrences starting 06/06 until 06/24/2020 End: 05-14-2022 XR Lumbar Spine Complete AP/Lat w Obls XR Lumbar Spine Complete AP/Lat w Obls Imaging Routine Chronic bilateral low back pain without sciatica 1 Occurrences starting 05/14/2021 until 05/14/2022 [employer] Work Phone: Comment on above: 1 Occurrences starting 05/14/2021 until 05/14/2022 Payers Date Payer Category Payer Medicaid [employer] [id number] 2021-Present [phone] [address] [place] [address] [id number]. [id number] 2021 Unknown [id number] 1.2.840.082329.1.13.239.2. 7.3.358551.315 2017 Medicaid [id number] 1.2.840.636650.1.13.385.2. 7.3.782460.315 2012 Medicaid [id number] 1.2.840.214597.1.13.239.2. 7.3.380370.315 2012 Medicaid [id number] 2008 Private Health Insurance [id number] 1990 Unknown [id number] 2.16.840.1.393961.3.579.2. 173 1990 Unknown [id number] 2.16.840.1.156121.3.579.2. 900 1990 Unknown [id number] 2.16.840.1.657036.3.579.2. 900 1990 Unknown [id number] 2.16.840.1.093878.3.579.2. 900 1990 Unknown [id number] 2.16.840.1.902404.3.579.2. 900 1990 Unknown [id number] 2.16.840.1.324468.3.579.2. 900 1990 Unknown [id number] 2.16.840.1.935544.3.579.2. 900 1990 Unknown [id number] 2.16.840.1.762532.3.579.2. 900 1990 Unknown [id number] 2.16.840.1.101120.3.579.2. 903 1990 Unknown [id number] 2.16.840.1.617163.3.579.2. 903 1990 Unknown [id number] 2.16.840.1.974077.3.579.2. 903 1990 Unknown [id number] 2.16.840.1.676566.3.579.2. 903 1990 Unknown [id number] 2.16.840.1.271344.3.579.2. 903 1990 Unknown [id number] 2.16.840.1.655618.3.579.2. 903 1990 Unknown [id number] 2.16.840.1.168555.3.579.2. 903 1990 Unknown [id number] 2.16.840.1.539780.3.579.2. 903 1990 Unknown [id number] 2.16.840.1.972908.3.579.2. 903 1990 Unknown [id number] 2.16.840.1.874833.3.579.2. 903 1990 Unknown [id number] 2.16.840.1.441683.3.579.2. 903 1990 Unknown [id number] 2.16.840.1.915733.3.579.2. 903 1990 Unknown [id number] 2.16.840.1.660030.3.579.2. 903 1990 Unknown [id number] 2.16.840.1.708034.3.579.2. 903 1990 Unknown [id number] 2.16.840.1.248641.3.579.2. 903 1990 Unknown [id number] 2.16.840.1.672624.3.579.2. 593 1990 Unknown [id number] 2.16.840.1.357153.3.579.2. 593 1990 Unknown [id number] 2.16.840.1.673074.3.579.2. 593 1990 Unknown [id number] 2.16.840.1.274185.3.579.2. 593 1990 Unknown [id number] 2.16.840.1.779751.3.579.2. 174 1990 Unknown [id number] 2.16.840.1.030315.3.579.2. 174 1990 Unknown [id number] 2.16.840.1.728183.3.579.2. 174 1990 Unknown [id number] 2.16.840.1.151153.3.579.2. 174 1990 Unknown [id number] 2.16.840.1.717236.3.579.2. 174 1990 Unknown [id number] 2.16.840.1.222759.3.579.2. 174 1990 Unknown [id number] 2.16.840.1.129099.3.579.2. 174 1990 Unknown [id number] 2.16.840.1.921416.3.579.2. 727 1990 Unknown [id number] 2.16.840.1.726834.3.579.2. 727 1990 Unknown [id number] 2.16.840.1.452039.3.579.2. 727 1990 Unknown [id number] 2.16.840.1.824019.3.579.2. 1259 1959 Unknown [id number] Social History Date Type Detail Facility Start: 04-28-2019 End: 11-03-2019 Tobacco smoking status NHIS Current every day smoker [place] End: 02-15-2020 History of tobacco use Cigarette Smoker [place] Start: 04-28-2019 End: 09-04-2022 Cigarettes smoked current (pack per day) - Reported [facility] Start: 04-28-2019 Alcohol intake Current drinke r of alcohol (finding) [place], [place] Start: 1990 Sex Assigned At Not on file [place], [place] Start: 06-13-2019 End: 05-10-2023 Alcohol intake Ex-drinker (finding) [facility] Y Exposure to SARS-CoV -2 (event) Unable to assess [place], [place] Start: 05-18-2019 End: 04-16-2021 History SDOH Alcohol Frequency 3 [facility] Start: 05-18-2019 End: 07-16-2020 History SDOH Alcohol Std Drinks 5 [facility] Start: 05-04-2021 End: 05-19-2022 Exposure to SARS-CoV-2 (event) Not sure [facility] Start: 11-20-2019 End: 04-01-2020 Tobacco use and exposure Never used [facility] Start: 06-09-2020 End: 05-11-2023 Tobacco smoking status NHIS Former smoker [facility] End: 02-15-2020 History of tobacco use Current smoker [facility] Start: 12-09-2019 [facility] Start: 04-16-2021 History SDOH Social Connections Get Together 4 [facility] Start: 04-16-2021 History SDOH Food Worry 1 [facility] Start: 09-04-2022 Sex Assigned At Female F [facility] Start: 09-04-2022 History SDOH Alcohol Frequency 2 [facility] How often to you hav e a drink containing alcohol? Monthly or less [facility] Average Number of Drinks Not on file [facility] Medical Equipment Procedure Code Equipment Code Equipment Origin al Text Equipment Identifier Dates Use to check BG QID Dx O24.14 . [id number] Start: 06-09-2020 Use as instructe d to check BG QID Dx O24.14 . [id number] Start: 06-09-2020 End: 06-11-2020 use to test BLOO D SUGAR FOUR TIMES DAILY [id number] Start: 06-09-2020 Goals Date Patient Goal Desired Activity /State Functional Status Date Assessment Result Facility 05-13-2023 Functional Status N/A [facility] 05-11-2023 Functional Status N/A [facility] 06-29-2022 Functional Status N/A [facility] Clinical Notes 06-09-2020 to 05-13-2023 Note Date [...] Follow these instructions at home: Medicines Take oqfm-hdj-zivuate and prescription medicines only as told by [...] Document Reviewed: 04/30/2021 Elsevier Patient Education 2022 [employer]. Follow Up Care 05/13/2023 11:20:07 With:Currently Address: [facility]ory [facility] Business (1) When:05/16/2023 12:45:32 Comments:Dentistry follow-up [facility] 05-12-2023 Hospital Discharg e instructions Patient Education 05/11/2023 23:33:09 Dental Pain, Jhtr-ld-Izqn Dental Pain Dental pain is often a [...] Follow these instructions at home: Medicines Take rfmy-wxo-zqtjakm and prescription medicines only as told by [...] damage to the area. Brushing your teeth [place] your teeth twice a day using a [...] only when you eat or drink. Take jowq-sld-qsjfdwf and prescription medicines only as told by your dentist. Watch your dental pain for any changes. Let your dentist know if symptoms get worse. This information is not intended to replace advice given to you by your health care provider. Make sure you discuss any questions you have with your health care provider. Document Revised: 11/26/2020 Document Reviewed: 11/26/2020 [employer] Patient Education 2022 [employer]opher. Follow Up Care 05/11/2023 21:26:40 With:Linda Sheppard DO Address: [address] [place] [address] Anaya, Amelie , [facility] [address] [place] [address]- When:05/14/[address] [facility] 05-11-2023 Evaluation + Plan note Extrac roxann from: Title:ED Note Author:Violet Walters PA-C ate:05/11/23 1. Pain, dental (K08.89: Oth er specified disorders of teeth and supporting structures) Ordered: amoxicillin-clavulanate, = 1 tab(s), Oral, q12hr, X 7 day(s), # 14 tab(s), Refills(s) 0, Pharmacy: [facility] #16, 160, cm, 05/11/23 21:53:00 EST, Height/Length Dosing, 110, kg, 05/11/23 21:53:00 EST, Weight Dosing chlorhexidine topical, 0.018 gm, 15 mL, Oral, BID, 480 mL, Refill(s) 0, (swish and spit; do not swallow), [facility] #16, 160, cm, 05/11/23 21:53:00 EST, Height/Length Dosing, 110, kg, 05/11/23 21:53:00 EST, Weight Dosing 2. Infected dental caries (K02.9: Dental caries, unspecified) Ordered: amoxicillin-clavulanate, = 1 tab(s), Oral, q12hr, X 7 day(s), # 14 tab(s), Refills(s) 0, Pharmacy: [facility] #16, 160, cm, 05/11/23 21:53:00 EST, Height/Length Dosing, 110, kg, 05/11/23 21:53:00 EST, Weight Dosing chlorhexidine topical, 0.018 gm, 15 mL, Oral, BID, 480 mL, Refill(s) 0, (swish and spit; do not swallow), [facility] #16, 160, cm, 05/11/23 21:53:00 EST, Height/Length Dosing, 110, kg, 05/11/23 21:53:00 EST, Weight Dosing 3. First trimester (Z34.91: Encounter for supervision of normal , unspecified, first trimester) Periapical abscess without sinus (K04.7: Periapical abscess without sinus) Orders: ketorolac, 30 mg = 1 mL, Injection, IntraMuscular, Once, Stop date 05/11/23 23:31:00 EST, STAT, Start date 05/11/23 23:31:00 EST, 05/11/23 23:31:[address] [facility]03-05-2024 Hospital Discharge instructions* Discharge Instructions* Chet Berumen DO - 05/10/2023 11:50 AM EST Use amoxicillin as prescribed. Use Tylenol as needed for pain. Follow-up with dentist as soon as possible. * Attachments The following attachments cannot be sent through Care Everywhere. * Tooth Decay (Gambian) * Tooth and Gum Pain (Gambian) [facility] History of Present illness Narrative* Angelito Harvey [...] Supplements: Reviewed Current Outpatient Medications Ordered in [facility] Medication Sig Dispense Refill baclofen (LIORESAL) 10 [...] mg by mouth daily . No current [facility]-ordered facility-administered medications on file. Lab Results Component [...] - 6-7 PM- crock pot meals- goulash; Portuguese chicken; spicy rice with chicken and beans; [...] calorie goals/day. Estimated Nutritional Needs: Calorie Needs: 7444-0536 kcals/day (MSJ x 1.3AF -500-1000 to promote gradual weight loss) Patient/Family Education: Learner: family and patient Readiness: action - ready to set action plan and implement goals Barriers to Learning: none Method: explanation and handout Response: verbalizes understanding Expected Adherence: good Education Materials Provided: Healthy Meal Planning handout ([facility]), Goal Sheet, 1,255-Onfqwth6-Hdk Menus (NCM), 1,800-Calorie 5-Day Menus (NCM), Weight Loss Tips ([place]) Monitoring/Evaluation: Lab results, weight, food recall, meal planning, goal achievement, physical activity, medication management. This documentation has been sent to the referring healthcare provider. Angelito Harvey RDN, Personal Office documented in this [id number] History of Present illness Narrative* Farhat Vang [...] C hepatitis virus. Patient was referred to highway engineering technician and the recommendation was made for a [...] improve, for Follow Up. documented in this [id number] History of Present illness Narrative* Farhat Vang MD - 04/16/2021 10:27 AM EST OUTPATIENT WELL WOMAN PROGRESS NOTE Subjective: Tia eLvin is a very nice 31 y.o. female [...] current medications that are prescribed by her fabrication specialist. She has 4 children at home [...] Not difficult at all documented in this [id number] History of Present illness Narrative* Holland Ann [...] Procedure: SECTION; Surgeon: Roslyn Stevenson MD; Location: [facility]; Service: OBGYN SECTION, LOW TRANSVERSE 3 Social [...] Friends and Family: Not on file Attends [employer]: Not on file Active Member of [...] Report 12/29/2020 Final Value:Gynecologic Cytology Report Case: [id number] Authorizing Provider: Germania Valentino, Collected: 12/29/2020 11:09 AM CLAM DREDGER Ordering Location: [facility] ADVERTISING MANAGER - An Received: 12/30/2020 12:03 PM [facility] First Screen: Violet Craig Rescreen: Talya Abel [...] from every slide are reviewed by a community aide. Specimen processing and Primary Screening performed at: [facility] - [address] [place] [address] HPV Results 12/29/2020 Final Value:This result contains [...] physician. Holland Ann MD documented in this [id number] History of Present illness Narrative* Jeimy Tan LPN - 01/15/2021 11:17 AM EST This nurse acted as a supervisor edging for a rectal exam by Dr. Ann for Tia. Tia verbalized consent to be examined, appeared comfortable and tolerated the exam well. documented in this [id number] History of Present illness Narrative* Neris Ulloa, MATAIS - 07/22/2020 12:04 PM EDT Patient Name: [...] no 2) I will try yoga on [employer] - yes but didn't feel comfortable doing [...] oatmeal packet. Snack celery + PB or French yogurt or green peppers. Lunch - will be light if full from snack and may have an early dinner. Dinner - pork chops, steamed vegetables. Snack - French yogurt or vegetables or watermelon. Beverages - [...] prescription for Current Outpatient Medications Ordered in [facility] Medication Sig Dispense Refill blood sugar diagnostic [...] the referring healthcare provider. documented in this [id number] Instructions* Patient Instructions* Zelda Bautista CNP - [...] to renew/prescribe testing supplies. documented in this [id number] History of Present illness Narrative* Zelda Bautista CNP - 07/09/2020 11:01 AM EDT Subjective: Tia [...] visit with us. The patient did bring Sweetie [place] sugar meter with her for download today however there is not many readings on it. She states she started a new job at [employer] and does noise get breaks to check [...] 4. Patient to cont. To follow with roughing mill operator 5. Patient will require 2 hour 75 gram OGTT 8-12 weeks after delivery. 6. Follow-up in 2 weeks. Risks and potential complications of diabetes were reviewed with the patient. Electronically signed by Zelda MARIN 07/09/2110:03 AM documented in this [id number] History of Present illness Narrative* Lelo Gallegos [...] month during . While awaiting appointment with roughing mill operator, patient provided with details of GDM [...] 1 hour post prandial. 4. Referral to roughing mill operator 5. Patient will require 2 hour 75 gram OGTT 8-12 weeks after delivery. 6. Follow-up in 2 weeks. Risks and potential complications of diabetes were reviewed with the patient. documented [facility] No data available for this section [facility] Diet controlled gestational diabetes mellitus (GDM) in second trimester [facility]* Diagnosis Acute frontal sinusitis, recurrence not specified- Primary documented in this encounter [employer] Phone: [email or web address] note* Diagnosis Diet controlled gestational diabetes mellitus (GDM) in third trimester- Primary [facility]* Diagnosis Diet controlled gestational diabetes mellitus (GDM) in third trimester [facility] Diagnosis Viral URI- Primary Acute upper respiratory infections of unspecified site documented in this encounter [employer] Phone: [email or web address] note* Diagnosis Strain of rhomboid muscle, initial encounter Chest wall muscle strain, initial encounter documented in this encounter [employer] Phone: evaluation note* Diagnosis Viral syndrome- Primary Unspecified viral infection, in conditions classified elsewhere and of unspecified site documented in this encounter [employer] Phone: [email or web address] note* Diagnosis Hemorrhoids, unspecified hemorrhoid type [facility]* Diagnosis COVID-19- Primary Omphalitis in adult Unspecified local infection of skin and subcutaneous tissue documented in this encounter [employer] Phone: evaluation note* Diagnosis Encounter for general adult medical examination with abnormal findings- Primary Anxiety and depression History of opioid abuse (HCC) Morbid obesity with body mass index (BMI) of 40.0 or higher (HCC) [facility] Anxiety and depression- Primary At risk for obstructive sleep apnea Chronic bilateral low back pain without sciatica Hepatitis C antibody positive in blood Body mass index 40.0-44.9, adult (HCC) Body Mass Index 40.0-44.9, adult History of opioid abuse (HCC) documented [facility]* Diagnosis Morbid obesity with body mass index (BMI) of 40.0 or higher (HCC) [facility] Diagnosis Acute pharyngitis, unspecified etiology- Primary documented in this encounter [employer] Phone: evaluation note* Diagnosis Acute bronchitis, unspecified organism- Primary documented in this encounter [employer] Phone: evaluation note* Diagnosis Masseter muscle spasm- Primary Spasm of muscle Other acute postprocedural pain documented in this encounter [facility] [employer] Phone: evaluation note* Diagnosis Dry socket- Primary Alveolitis of jaw documented in this encounter [employer] Phone: evaluation note* Diagnosis Sprain of right ankle, unspecified ligament, initial encounter- Primary documented in this encounter [facility] Diagnosis Toothache- Primary Unspecified disorder of the teeth and supporting structures Dental decay Unspecified dental caries documented in this encounter [facility] Discharge instructions* Instructions* Allegra Quinn MD - 06/24/2020 Although many psft-kro-yvavwgx cough cold flu sinus medications are safe in , I would contact her ADVERTISING MANAGER office in [facility] to verify what your ADVERTISING MANAGER group feels a safe in . Tylenol [...] be sent through Care Everywhere. * Sinusitis (Gambian) documented in this [employer] Phone: Hospital Discharge instructions* Attachments The following attachments cannot be sent through Care Everywhere. * URI (Upper Respiratory Infection) (Gambian) documented in this [employer] Phone: Hospital Discharge instructions* Attachments The following attachments cannot be sent through Care Everywhere. * Muscle Strain (Gambian) documented in this [employer] Phone: Hospital Discharge instructions* Attachments The following attachments cannot be sent through Care Everywhere. * Viral Infections (Gambian) documented in this [employer] Phone: hospital Discharge instructions* Attachments The following attachments cannot be sent through Care Everywhere. * Coronavirus Disease (COVID-19): General Info (Gambian) * Coronavirus Disease (COVID-19): Isolation (Gambian) * Piercing: Infection (Gambian) documented in this [employer] Phone: Hospital Discharge instructions* Instructions* Clark Moser MD - 07/22/2021 Use Tylenol or Motrin for pain. Take amoxicillin twice a day. Amoxicillin treats strep throat, ear infections, bronchitis and pneumonia. Call primary care doctor for close follow-up. * Attachments The following attachments cannot be sent through Care Everywhere. * Sore Throat (Gambian) documented in this [employer] Phone: Hospital Discharge instructions* Attachments The following attachments cannot be sent through Care Everywhere. * Bronchitis (Gambian) documented in this [employer] Phone: hospital Discharge instructions* Attachments The following attachments cannot be sent through Care Everywhere. * Cramp: Muscle (Gambian) * Pain Post-Surgery: Acute (Gambian) documented in this [employer] Phone: Hospital Discharge instructions* Attachments The following attachments cannot be sent through Care Everywhere. * Clear Fork Tooth Extraction: Post-op (Gambian) [facility] Phone: Hospital Discharge instructions No data available for this section [facility]* Attachments The following attachments cannot be sent through Care Everywhere. * Ankle Sprain (Gambian) documented in [facility] No data available for this section [facility] for referral (narrative)* Consultation (Routine) Status Reason Specialty Diagnoses / Procedures Referred By Contact Referred To Contact Authorized Nutrition Diagnoses Diet controlled gestational diabetes mellitus (GDM) in second trimester Lelo Gallegos MD [address] [place] [address] Nutrition Services [address] [place] [phone] [facility] for visit Narrative* Consultation (Routine) - Pending Review Specialty Diagnoses / Procedures Referred By Contac t Referred To Contact Gastroenterology Diagnoses Hemorrhoids, unspecified hemorrhoid type Germania Galaviz, CLAM DREDGER [address] [place] [address] Holland Ann MD [address] [place] [address] Referral ID Status Reason Start Date Expiration Date V isits Requested Visits Authorized [id number] Pending Review 12/29/2020 01/14/2022 1 1 [facility] Assessments Diagnosis Accidental overdose of heroin, [...] FoundDocuments on File Type Date Recorded Patient Arm Rest Builder Expl anation Advance Directives and Living Will Power of Pickling Grader Documents on File Type Date Recorded Patient Arm Rest Builder Expl anation Advance Directives and Living Will 06/14/2019 7:25 AM does not have 3/13/2 0 Latest Code Status on File Code Status Date Activated Date Inactivated Comments Full Code 06/15/2019 9:29 AM 06/17/2019 4:38 PM Full Code - Unverified 06/14/2019 8:35 AM 06/15/2019 9:29 AM Documents on File Type Date Recorded Patient Arm Rest Builder Expl anation Advance Directives and Living Will 06/14/2019 7:25 AM does not have 3/13/2 0 Latest Code Status on File Code Status Date Activated Date Inactivated Comments Full Code 06/15/2019 9:29 AM 06/17/2019 4:38 PM Full Code - Unverified 06/14/2019 8:35 AM 06/15/2019 9:29 AM Documents on File Type Date Recorded Patient Arm Rest Builder Expl anation Advance Directives and Living Will 06/20/2019 1:10 PM does not have 3/13/2 0 Documents on File Type Date Recorded Patient Arm Rest Builder Expl anation ACP-Advance Directive ACP-Power of Pickling Grader Documents on File Type Date Recorded Patient Arm Rest Builder Expl anation Advance Directives and Living Will 06/20/2019 1:10 PM does not have 3/13/2 0 Documents on File Type Date Recorded Patient Arm Rest Builder Expl anation Advance Directives and Living Will 08/28/2020 5:58 AM does not have 3/13/2 0 Latest Code Status on File Code Status Date Activated Date Inactivated Comments Full Code 08/28/2020 11:15 AM 08/30/2020 11:53 AM Full Code 08/28/2020 5:31 AM 08/28/2020 11:07 AM Full Code 06/15/2019 9:29 AM 06/17/2019 4:38 PM Documents on File Type Date Recorded Patient Arm Rest Builder Expl anation Advance Directives and Living Will 08/28/2020 5:58 AM does not have 0 Latest Code Status on File Code Status Date Activated Date Inactivated Comments Full Code 08/28/2020 11:15 AM 08/30/2020 11:53 AM Full Code 08/28/2020 5:31 AM 08/28/2020 11:07 AM Full Code 06/15/2019 9:29 AM 06/17/2019 4:38 PM Documents on File Type Date Recorded Patient Arm Rest Builder Expl anation Advance Directives and Livin g Will 05/15/2021 12:00 AM Hospital Course * Savita Stiles PA-C - 06/17/2019 10:12 AM EDT [facility] DISCHARGE SUMMARY Tia Levin Account: [id number] Admitted: 06/14/2019 Discharge Date/Time: 06/17/19 10:12 AM Clinical Summary Handoff to PCP PCP to address the following 1. Acute Liver Injury: Follow up with Dr. Hay (GI) with repeat weekly labs to include: CBC, CMP, PT/INR for the next month and see him in his office. 2. Hepatitis C: Follow up with new PCP in 1 week to establish care. Tia Levin is a 29 y.o. female with a history of amphetamine and heroine use who presented to [facility] 06/14/19 with complaints of abdominal pain and nausea. [facility] AST 1116 ALT 665 Alk phos 255 T bili 6.5 Lipase 8. CTAP revealed pericholecystic fluid vs GB wall thickening, no gallstones or hepatic pathology noted. Patient transferred to [facility] 06/14/2019 for further treatment and evaluation. [...] chart for all vitals, diagnostic data, and automotive internet sales consultant notes. I discussed patient's case with Dr. Gregorio, Dr. Hay (GI) and RN. Discharge Medications Medication List ASK your doctor about these medications naltrexone microspheres Commonly known as: VivitroL Inject 380 (three hundred eighty) mg into the shoulder, thigh, or buttocks every 30 (thirty) days . Physician(s) Family: Physician No, Phone: None, Address: [facility] Follow Up: Javier Hay MD [address] [place] [address] [place] [id number] Follow up Repeat weekly CBC, CMP and PT/INR for the next 3-4 weeks then follow up out patient with Dr. Hay. Laboratory Follow Up by [facility]: Weekly labs for CBC, CMP, PT/INR Additional Information: Patient seen and examined day of discharge. For more information regarding patient's care, including complete radiology reports, please contact [facility] at Patient instructions, including activity, [...] amphetamine and heroine use who presented to [facility] 06/14/19 with complaints of abdominal pain and nausea. [facility] AST 1116 ALT 665 Alk phos 255 T bili 6.5 Lipase 8. CTAP revealed pericholecystic fluid vs GB wall thickening, no gallstones or hepatic pathology noted. Patient transferred to [facility] 06/14/2019 for further treatment and evaluation. [...] 1:16 PM EDT RESOURCES FOR PRIMARY CARE [facility] Primary Care Closed Opens tomorrow [address], [place] [address] [facility] [place] [address] [place] [address] DIRECTIONS WEBSITE [facility] Closed Opens tomorrow 11 [address] [place] [address] documented in this encounter* Instructions* Adia Dillon CNP - 08/13/2019 Please stay well-hydrated. I strongly encourage you to follow-up with Dr. Yadav regarding heroin abuse. Dr. Echeverria is well-known in the community for treating opiate addiction. Should you have any troubles with shortness of breath please return the ER immediately. * Attachments The following attachments cannot be sent through Care Everywhere. * Opioid Use Disorder: Medication-Assisted Treatment: General Info (Gambian) documented in this encounter* Attachments The following attachments cannot be sent through Care Everywhere. * Bacterial Vaginosis (Gambian) * Trichomoniasis (Gambian) documented in this encounter* Attachments The following attachments cannot be sent through Care Everywhere. * Dental Surgery: Generic: Post-op (Gambian) documented in this encounter* Attachments The following attachments cannot be sent through Care Everywhere. * Bronchitis (Gambian) * Pneumonia (Gambian) documented in this encounter* Attachments The following attachments cannot be sent through Care Everywhere. * Poison Arabella - Kirby - and Sumac (Gambian) documented in this encounter History of Present Illness * Javier Hay MD - 06/17/2019 9:59 AM EDT GASTROENTEROLOGY DAILY PROGRESS NOTE 1 Patient Name: Tia Levin MR #: [id number] Assessment/Plan: Elevated LFTs Assessment & Plan 29yo F with PMHx IVDU and hepatitis C who presents from [facility] with elevated LFTs and imaging c/f possible acute cholecystitis. GI consulted for further evaluation. - LFTs: AP 255, AST/ALT 665/1116, TB 6.5 (normal 02/2019) - CT w IVC ([facility]): moderate GBW thickening w pericholecystic fluid and [...] Auguste MD - 06/17/2019 7:41 AM EDT [facility] Inpatient Progress Note 06/17/2019 Tia Levin 1990 [id number] Assessment/Plan: Tia Levin is a 29 y.o. female with a history of amphetamine and heroine use who presented to [facility] 06/14/19 with complaints of abdominal pain and nausea. [facility] AST 1116 ALT 665 Alk phos 255 T bili 6.5 Lipase 8. CTAP revealed pericholecystic fluid vs GB wall thickening, no gallstones or hepatic pathology noted. Patient transferred to [facility] 06/14/2019 for further treatment and evaluation. 1. Acute Liver Injury: [facility] AST 1116 ALT 665 Alk phos 255 [...] labs, diagnostics, vitals including pulse ox, and automotive internet sales consultant/other provider recommendations. No acute issues overnight [...] Results from last 7 days Lab Units 06/16/1963106/15/1945606/14/19 1037 WBC K/mcL 6.48 5.74 7.28 HGB g/dL 12.9 12.6 11.6* HCT % 38.5 38.5 34.6* PLT K/mcL 185 155 172 Results from last 7 days Lab Units 06/17/19 0528 06/16/1963106/15/197 SODIUM mmol/L 138 139 136 POTASSIUM mmol/L 4.1 4.3 3.8 CHLORIDE mmol/L 102 103 103 BICARB mmol/L 25 26 22 BUN mg/dL 5* 4* 5* CREATININE mg/dL 0.36* 0.32* 0.36* EGFR mL/min/1.73 m2 146 152 146 GLUCOSE mg/dL 102* 92 122* CALCIUM mg/dL 8.6 8.4 8.2* Results from last 7 days Lab Units 06/16/1932 06/15/1945606/14/19 1037 ALT U/L 825* 888* 808* AST U/L 544* 667* 592* ALK PHOS U/L 217* 193* 183* BILIRUBIN TOTAL mg/dL 5.9* 5.2* 4.9* Results from last 7 days Lab Units 06/14/19 1037 INR 1.3* * Javier Hay MD - 06/16/2019 9:43 AM EDT GASTROENTEROLOGY DAILY PROGRESS NOTE 2 Patient Name: Tia Levin MR #: [id number] Assessment/Plan: Elevated LFTs Assessment & Plan 29yo F with PMHx IVDU and hepatitis C who presents from [facility] with elevated LFTs and imaging c/f possible [...] last 7 days Lab Units 06/16/19 0632 06/15/1945606/14/19 1037 WBC K/mcL 6.48 5.74 7.28 HGB g/dL 12.9 12.6 11.6* HCT % 38.5 38.5 34.6* PLT K/mcL 185 155 172 Results from last 7 days Lab Units 06/16/19 0632 06/15/19 04506/14/19 1037 SODIUM mmol/L 139 136 137 POTASSIUM [...] Auguste MD - 06/16/2019 9:38 AM EDT [facility] Inpatient Progress Note 06/16/2019 Tia Levin 1990 [id number] Assessment/Plan: Tia Levin is a 29 y.o. female with a history of amphetamine and heroine use who presented to [facility] 06/14/19 with complaints of abdominal pain and nausea. [facility] AST 1116 ALT 665 Alk phos 255 T bili 6.5 Lipase 8. CTAP revealed pericholecystic fluid vs GB wall thickening, no gallstones or hepatic pathology noted. Patient transferred to [facility] 06/14/2019 for further treatment and evaluation. [...] recent labs, diagnostics, vitals including pulseox, and automotive internet sales consultant/other provider recommendations. No acute issues overnight [...] 06/14/19 1037 INR 1.3* * Aisha Hare, MARK - 06/15/2019 12:17 PM EDT GASTROENTEROLOGY DAILY PROGRESS NOTE 2 Patient Name: Tia Levin MR #: [id number] Assessment/Plan: Elevated LFTs Assessment & Plan 29yo F with PMHx IVDU and hepatitis C who presents from [facility] with elevated LFTs and imaging c/f possible [...] Radiology, Medications and Transcriptions Aisha Hare CNP [facility] (for staff use only) * Indra Pruitt MD - 06/15/2019 10:43 AM EDT [facility] Inpatient Progress Note 06/15/2019 Tia Levin 1990 [id number] Assessment/Plan: Tia Levin is a 29 y.o. female with a history of amphetamine and heroine use who presented to [facility] 06/14/19 with complaints of abdominal pain and nausea. [facility] AST 1116 ALT 665 Alk phos 255 T bili 6.5 Lipase 8. CTAP revealed pericholecystic fluid vs GB wall thickening, no gallstones or hepatic pathology noted. Patient transferred to [facility] 06/14/2019 for further treatment and evaluation. [...] from last 7 days Lab Units 06/15/19 04506/14/19 1037 SODIUM mmol/L 136 137 POTASSIUM mmol/L 3.8 3.8 CHLORIDE mmol/L 103 104 BICARB mmol/L 22 21 BUN mg/dL 5* 9 CREATININE mg/dL 0.36* 0.43 EGFR mL/min/1.73 m2 146 138 GLUCOSE mg/dL 122* 79 CALCIUM mg/dL 8.2* 8.4 Results from last 7 days Lab Units 06/15/19 04506/14/19 1037 ALT U/L 888* 808* AST U/L [...] have a PCP and refused a case mgr consult for assistance. Verified insurance and Rx. [...] 10:48 AM EDT [facility]. After provider review, I called and spoke with patient and changed her appointment to a phone visit, same date/time. In addition, as per provider request, I spoke with patient about going to any [facility] to have her lab taken so it will be available for review on 06/20/19 when she is called for her TCC appointment. Patient agreed with this plan. documented in this encounter* Anastasiia Garza CNP - 06/20/2019 1:16 PM EDT Attempted to call the patient for her tele-health visit today though she did not answer. Called [employer] number 5 times and home phone once, [...] 06/24. 2) I will try yoga on YouTube. 3) I will continue to monitor my blood sugar before breakfast and 1 hour after meals. Follow Up: 06/24 at 1:30 pm Assessment: Currently 28 wks, GEM = 08/28/20 ( scheduled.) 4th . Lives w/ parents and 3 children. Qualifies for food assistance and plans to enroll in [employer] and [employer]. Pt has a history of drug addiction [...] daily (lemon water) Occasional iced coffee at [employer]. Was drinking a lot of Mountain Dew and Energy drinks prior to but stopped. Meals Away From Home - most days, fast food Past Medical History: Past Medical History: Diagnosis Date Anxiety Depression Infectious viral hepatitis hep c PTSD (Post-Traumatic Stress Disorder) History From: History obtained from patient and chart review. Current/Pertinent Medications: prescription for Current Outpatient Medications Ordered in [facility] Medication Sig Dispense Refill amoxicillin (AMOXIL) 250 [...] daily . 90 tablet 3 No current [facility]-ordered facility-administered medications on file. SMBG Results: 93 [...] for this section No Family History Records FoundNo Family History Records Found Reason for Referral Specialty Diagnoses / Procedures Referred By Contac t Referred To Contact Nutrition Diagnoses Morbid obesity with body mass index (BMI) of 40.0 or higher ([facility]) Farhat Vang MD [address] Referral ID Status Reason Start Date Expiration Date Visits Requested Visits Authorized [id number] Authorized Specialty Services Required/Pat ient's Best Interest 04/16/2021 04/16/2022 1 1 Specialty Diagnoses / Procedures Referred By Contac t Referred To Contact Neurosurgery Diagnoses Chronic bilateral low back pain without sciatica Farhat Vang MD [address] [address] Carina Kline [place] [facility] [place] [address] Referral ID Status Reason Start Date Expiration Date Visits Requested Visits Authorized [id number] Authorized Specialty Services Required/Pat ient's Best Interest 05/14/2021 05/14/2022 1 1 Specialty Diagnoses / Procedures Referred By Contac t Referred To Contact Rehabilitation Diagnoses Chronic bilateral low back pain without sciatica Farhat Vang MD 199 [facility] [address] [place] [address] Referral ID Status Reason Start Date Expiration Date Visits Requested Visits Authorized [id number] Authorized Specialty Services Required/Pat ient's Best Interest 05/14/2021 05/14/2022 1 1 Specialty Diagnoses / Procedures Referred By Joey grimes Referred To Contact Diagnoses At risk for obstructive sleep apnea Farhat Vang MD [address] [facility] [address] [place] [address] Gabriel Jacinto MD [address] [place] [address] Referral ID Status Reason Start Date Expiration Date Visits Requested Visits Authorized [id number] Authorized Specialty Services Required/Pat ient's Best Interest 05/14/2021 05/14/2022 1 1 Additional Source Comments Reason for Visit (unrecogniz ed section and content) Reason Comments Drug Overdose Pt was brought in by [facility] for heroin OD. Prior to arrival [facility] [...] in second trimester Lelo Gallegos MD [address] [place] [address] Nutrition Services [address] [place] [address] Reason Comments Gestational Diabetes Status Reason Specialty Diagnoses / Procedures Referred By Contact Referred To Contact Closed Endocrinology Diagnoses Diet controlled gestational diabetes mellitus (GDM) in second trimester Roslyn Stevenson MD [address] [place] [address] Lelo Gallegos MD [address] [place] [address] Reason Comments Pharyngitis sore throat and head [...] Follow-up Specialty Diagnoses / Procedures Referred By Contac t Referred To Contact Nutrition Diagnoses Morbid obesity with body mass index (BMI) of 40.0 or higher ([facility]) Farhat Vang MD [address] [facility] [address] [place] [address] Nutrition Services [address] [place] [address] Referral ID Status Reason Start Date Expiration Date Visits Requested Visits Authorized [id number] Authorized Specialty Services Required/Pat ient's Best Interest [...] H&P Notes (unrecognized sect ion and content) [employer] History and Physical Note 06/14/19 Tia Levin 1990 [id number] Assessment/Plan: Tia Levin is a 29 y.o. female with a history of amphetamine and heroine use who presented to [facility] 06/14/19 with complaints of abdominal pain and nausea. [facility] AST 1116 ALT 665 Alk phos 255 T bili 6.5 Lipase 8. CTAP revealed pericholecystic fluid vs GB wall thickening, no gallstones or hepatic pathology noted. Patient transferred to [facility] 06/14/2019 for further treatment and evaluation. 1. Elevated LFTs: [facility] AST 1116 ALT 665 Alk phos 255 T bili 6.5 (normal 02/2019). [facility] CTAP as noted above. RUQ U/S 06/14/19 [...] amphetamine and heroine use who presented to [facility] 06/14/19 with complaints of abdominal pain and nausea. [facility] AST 1116 ALT 665 Alk phos 255 T bili 6.5 Lipase 8. CTAP revealed pericholecystic fluid vs GB wall thickening, no gallstones or hepatic pathology noted. Patient transferred to [facility] 06/14/2019 for further treatment and evaluation. [...] labs, diagnostics, vitals including pulse ox, and automotive internet sales consultant/other provider recommendations. Discussed with collaborating physician [...] file Gets together: Not on file Attends restorationist service: Not on file Active member of [...] reviewed, including documentation from previous hospitalizations and automotive internet sales consultant recommendations as summarized below. Briefly, patient [...] Jackson Jain MD - 06/16/2019 10:43 AM EDTGriAisha menezes CNP - 06/14/2019 10:05 AM EDT Consult Notes (unrecognized section and content) Associated Order(s): IP CONSULT TO GENERAL SURGERY Clinic Surgery Consult Note Patient Name: Tia Levin Admit Date: MR #: [id number] : 1990 Senior addendum 29 y/o F [...] Hepatitis C, and hx of presents to [facility] with jaundice and abdominal pain. -RUQ [...] Fleming MD General Surgery, PGY 2 Pager# [phone] 06/16/2019, 10:43 AM After 5 PM and on Weekends, please page [phone] (Surgery [employer] electronic [employer] technical) History of Present Illness: Patient presented for [...] file Gets together: Not on file Attends restorationist service: Not on file Active member of [...] patient. I discussed the case with the resident/LOSS CONTROL CONSULTANT and agree with the findings and plan as documented in his/her note and/or any note I supplied. Associated Order(s): IP CONSULT TO GASTROENTEROLOGY GASTROENTEROLOGY CONSULT NOTE 4 Patient Name: Tia Levin Admit Date: MR #: [id number] : 1990 Physicians: Physician Judy (Family); Brie Moreno MD (Referring) Consult Ordered By: Franny Sims PA-C Assessment and Plan: Other Elevated LFTs Assessment & Plan 29yo F with PMHx IVDU and hepatitis C who presents from [facility] with elevated LFTs and imaging c/f possible acute cholecystitis. GI consulted for further evaluation. - LFTs: AP 255, AST/ALT 665/1116, TB 6.5 (normal 02/2019) - CT w IVC ([facility]): moderate GBW thickening w pericholecystic fluid and [...] IVDU and hepatitis C who presents from [facility] with elevated LFTs and imaging c/f possible [...] she has been in and out of senior care over past 3mo. She denies EtOH. Denies NSAID and significant Tylenol use. Denies new medications, herbal supplements, or recent ATBx. She denies any known FH of liver disease or GI related malignancies. Current LFTs include: AP 255, AST/ALT 665/1116, TB 6.5 (of note were normal in 02/2019). CTa/p w IVC at [facility] demonstrated moderate GBW thickening w pericholecystic fluid [...] file Gets together: Not on file Attends restorationist service: Not on file Active member of [...] 06/14/19 10:18 AM Invalid input(s): CO2, LABALBU Asiha Hare CNP [facility] (for staff use only) Associated [...] 1:10 PM EDTPlan of Care - Isha Root, NANO - 06/14/2019 8:30 AM EDT Miscellaneous Notes [...] reviewed, including documentation from previous hospitalizations and automotive internet sales consultant recommendations as summarized below. Briefly, patient [...] for consultation documented in this encounter Adia Dillon CNP - 08/13/2019 7:43 PM Adia Hicks RN - 08/13/2019 7:43 PM Jimena Barnes RN - 08/13/2019 7:38 PM EDT ED Notes (unrecognized secti on and content) ED PROVIDER NOTE [facility] EMERGENCY DEPARTMENT NAME: Tia Levin AGE: 29 y.o. : 1990 VISIT DATE: 08/13/2019 CSN: [id number] PCP: Physician No Chief Complaint Patient presents with Drug Overdose This is a 29-year-old female brought to the ER via EMS for evaluation. Time my exam patient is alert and oriented. She states she was in the [employer] parking lot bent over in her car [...] file Gets together: Not on file Attends restorationist service: Not on file Active member of [...] nursing note reviewed. Exam conducted with a supervisor edging present (Nurses at the bedside). Constitutional: General: [...] for helping people with drug addiction. [address] [facility] [address] Contact information for after-discharge care Follow-up information has not been specified. Adia Dillon CNP 08/13/191948 Pt brought in by [place] [facility], states she was found by [facility] unresponsive [...] and content) DATE CREATED AUTHOR 08/21/2019 Joslyn allen DATE CREATED AUTHOR AUTHOR'S ALLENIZ DEEPA 02/15/2021 [facility] DATE CREATED AUTHOR AUTHOR'S ORGANIZ ATION 05/18/2021 [facility] DATE CREATED AUTHOR AUTHOR'S ORGANIZ ATION 07/02/2021 [facility] DATE CREATED AUTHOR AUTHOR'S ORGANIZ ATION 07/09/2021 [facility] DATE CREATED AUTHOR AUTHOR'S ORGANIZ ATION 07/05/2022 [facility] DATE CREATED AUTHOR AUTHOR'S ORGANIZ ATION 05/10/2023 [facility] DATE CREATED AUTHOR AUTHOR'S ORGANIZ ATION 05/14/2023 [facility] DATE CREATED AUTHOR AUTHOR'S ORGANIZ ATION 05/21/2023 [facility] EPIC Ordered Prescriptions (unrec ognized section and content) [...] mg (COMPLETED) 30 mg, IntraMUSCular, ONCE, On Tue12/27/20 at 1930, For 1 dose, Do not administer for more than 5 days. 2007 (Given - Provid er: Norma Stark, NANO) Scheduled Medication Order 10/10/2021 10/11/2021 10/12/2021 ipratropium-albuterol [...] IntraMUSCular, ONCE, 1 dose, On Tue05/19/22 at 2015 2014 (Given - Provid er: Juliana Stewart, NANO) PRN Medication Order 05/17/2022 05/18/2022 05/19/2022 lidocaine viscous hcl (XYLOCAINE) 2 % solution 15 mL 15 mL, Mouth/Throat, EVERY 3 HOURS PRN, Starting on Tue05/19/22 at 2002, Until Discontinued, Irritation 2013 (Given - Provid er: Juliana Stewart, NANO) Scheduled Medication Order 09/02/2022 09/03/2022 09/04/2022 ketorolac (TORADOL) injection 60 mg (COMPLETED) 60 mg, IntraMUSCular, ONCE, 1 dose, On 09/04/22 at 1230, Do not administer for more than 5 days. 1225 (Given - Provid er: Briana Burleson RN) Care Teams (unrecognized sec tion and content) City Collector Relationship Specialty Start Date End Date No, Physician [facility] PCP - General 12/29/20 Germania Galaviz, CLAM DREDGER [address] [place] [address] Nurse Practitioner Obstetrics/Gynecology 11/01/19 City Collector Relationship Specialty Start Date End Date No, Physician [facility] PCP - General 12/29/20 Germania Galaviz, CLAM DREDGER [address] [place] [address] Nurse Practitioner Obstetrics/Gynecology 11/01/19 City Collector Relationship Specialty Start Date End Date Farhat Vang MD [address] [facility] [address] [place] [address] PCP - General Family Medicine 04/16/21 Germania Galaviz, CLAM DREDGER [address] [place] [address] Nurse Practitioner Obstetrics/Gynecology 11/01/19 Radha Pantoja MD [address] [place] [address] Cloth Worker Obstetrics/Gynecology 02/02/21 Yvonne Santos MD [address] [place] [address] Cloth Worker Obstetrics/Gynecology 02/02/21 Regla Dais, [facility] [address] [facility] [place] [address] Rivet Heater Obstetrics/Gynecology 02/02/21 City Collector Relationship Specialty Start Date End Date Farhat Vang MD [address] [address] PCP - General Family Medicine 04/16/21 Germania Galaviz, CLAM DREDGER [address] [facility] [place] [address] Nurse Practitioner Obstetrics/Gynecology 11/01/19 Radha Pantoja MD [address] [facility] [place] [address] Cloth Worker Obstetrics/Gynecology 02/02/21 Yvonne Santos MD [address] [place] [address] Cloth Worker Obstetrics/Gynecology 02/02/21 Regla Dias, [facility] [address] [facility] [place] [address] Rivet Heater Obstetrics/Gynecology 02/02/21 City Collector Relationship Specialty Start Date End Date Farhat Vang MD [address] [facility] [address] [place] [address] PCP - General Family Medicine 04/16/21 Germania Galaviz, CLAM DREDGER [address] [facility] [place] [address] Nurse Practitioner Obstetrics/Gynecology 11/01/19 Radha Pantoja MD [address] [facility] [address] [place], [place] [id number] Cloth Worker Obstetrics/Gynecology 02/02/21 Yvonne Santos MD [address] [facility] [address] [place] [address] Cloth Worker Obstetrics/Gynecology 02/02/21 Regla Dias CNM [address] [facility] [address] [place] [address] Rivet Heater Obstetrics/Gynecology 02/02/21 City Collector Relationship Specialty Start Date End Date Linda Sheppard DO [address] [place] [address] PCP - General Family Medicine 09/04/22 City Collector Relationship Specialty Start Date End Date Linda Sheppard DO [address] [facility] [place] [address] PCP - General Family Medicine [...] BE BASED ON THE PRIMARY CLINICAL RECORDS. [facility]. provides no warranty or guarantee of the accuracy or completeness of information in this document.
[2023-06-09 11:05] LABS: Basophils Percent Auto 0.2 % (0.2-2.0); Eosinophils Absolute Auto 0.1 10^3/uL (0.0-0.7); Eosinophils Percent Auto 0.8 % (0.9-7.0); Hematocrit 36.8 % (36.0-48.0); Hemoglobin 12.5 g/dL (12.0-16.0); Immature Granulocytes Abs Auto 0.06 10^3/uL (0.00-0.03); Immature Granulocytes Pct Auto 0.6 % (0.0-0.5); Lymphocytes Absolute Auto 1.6 10^3/uL (1.2-3.8); Mean Corpuscular Hemoglobin 28.9 pg (26.7-34.0); Mean Corpuscular Volume 85.2 fL (81.0-99.0); Mean Platelet Volume 10.1 fL (9.5-13.5); Monocytes Absolute Auto 0.5 10^3/uL (0.3-0.8); Monocytes Percent Auto 5.1 % (1.7-12.0); Neutrophils Absolute Auto 7.6 10^3/uL (1.4-6.5); Neutrophils Percent Auto 77.3 % (43.0-75.0); Platelet Count 276 10^3/uL (150-450); Red Blood Count 4.32 10^6/uL (4.20-5.40); Red Cell Distribution Width 12.6 % (11.0-15.0); White Blood Count 9.8 10^3/uL (4.0-11.0)
[2023-06-09 11:27] LABS: Estimated Average Glucose 105 mg/dL; Glycohemoglobin A1C 5.3 % (4.5-6.2)
[2023-06-10 06:09] LABS: HBsAg Screen Negative (Negative); HIV Ab/p24 Ag Screen Non Reactive (Non Reactive); Rubella Antibodies, IgG 7.86 index (Immune >0.99)
[2023-06-10 11:09] LABS: Rapid Plasma Reagin, Quant Non Reactive titer (NonRea<1:1)
[2023-06-11 15:08] LABS: HCV Ab Reactive (Non Reactive)
== END 2023-06-09 10:19 | disposition home or self-care (01) ==
LOC: LAB 10:22
PROVIDERS: Visit Provider Obstetrics & Gynecology
DX: Z36.0 Encounter for antenatal screening for chromosomal anomalies (principal); N92.6 Irregular menstruation, unspecified
CPT/HCPCS: 36415; 83036; 85025; 86592; 86762; 86803; 86850; 86900; 86901; 87086; 87340; 87389

== ENCOUNTER 2023-06-19 20:41 | Emergency (ER) | payer BC, SELFPAY ==
[2023-06-19 20:44] VITALS: BP 135/85; PULSE 89; TEMP 36.6; O2SAT 97; BMI 43.3
--- OUTSIDE RECORDS SUMMARY | 2023-06-19 20:46 | XMS_ITS | CCD ---
Author Organization [facility] Care Team Providers Care Sausage Inspector Name Role Phone Unavailable Primary Care Provider Unavailabl e No, Physician Primary Care Provider Unavailabl e HODA MADERA Unavailable Unavailable Primary Care Provider Unavailabl e No, Physician Primary Care Provider Unavailabl Germania Becerra Unavailable Roslyn Stevenson Unavailable Radha Pantoja Unavailable Yvonne Santos Unavailable Larissa, Regla Corina Unavailable [phone] No, Physician Primary Care Provider UnavailGermania Rodriguez CNP Unavailable Roslyn Stevenson MD Unavailable Radha Pantoja MD Unavailable Yvonne Santos MD Unavailable Larissa CNM, Regla Corina Unavailable Unavailable Primary Care Provider UnavailGermania Rodriguez CNP Unavailable [phone] Roslyn Stevenson MD Unavailable Radha Pantoja MD [...] Radha Bosch Unavailable Yvonne Santos MD Unavailable [phone] Larissa KHOURY, Regla Corina Unavailable iCera PEDRAZA, Narcis Dawit Primary Care Provider PAPADOPOL, [...] Unavailable Linda Sheppard DO Primary Care Provider [phone] ALLEGRA QUINN Attending Unavailable MARK DUMONT Referring Unavailable LINDA SHEPPARD Primary Care Unavailable MARK DUMONT Referring Unavailable LINDA SHEPPARD Primary Care Unavailable LINDA SHEPPARD Primary Care Unavailable DIAB Khushi DINH~[id number] STEVIE Attendi rex Unavailable DIAB Khushi DINH~[id number] STEVIE Attendi ng Unavailable CHET BERUMEN Attending Unavailable LINDA SHEPPARD Primary Care Unavailable CHET BERMUEN Attending Unavailable LINDA SHEPPARD Primary Care Unavailable [...] day(s), # 14 tab(s), Refills(s) 0, Pharmacy: [facility], 160, cm, 05/11/23 21:53:00 EST, Height/Length [...] oral solution (2 sources) alpha-Adrenergic Agonist, Uncompetitive S-coribp-J-aspartat e Receptor Antagonist, Sigma-1 Agonist Start: 10-12-2021 [...] three times daily as needed for cough prqiasnueubldwd-cnrfqpipzxmwgel-ZL 2-30- 10 MG/5ML syrup Take 5 mLs [...] 0, (swish and spit; do not swallow), [facility], 160, cm, 05/11/23 21:53:00 EST, [...] Active Dextromethorphan / guaiFENesin (2 sources) Uncompetitive W-otoxxe-B-asparta te Receptor Antagonist, Sigma-1 Agonist End: 06-24-2020 [...] day(s), # 15 tab(s), Refills(s) 0, Pharmacy: [facility], 160, cm, 05/13/23 11:33:00 EST, Height/Length [...] for Pain. 0 05/10/2023 Discontinued (LIST CLEANUP) [id number] 200 actuat albuterol 0.09 mg/actuat metered dose [...] Oral, Every 4 hours PRN, indigestion, Starting [facility] 06/14/19 at 0831 azithromycin 250 mg [...] Oral, Daily PRN, constipation, For constipation., Starting [facility] 06/14/19 at 0831 naloxone (NARCAN) injection [...] Translations: [Accidental overdose of heroin, initial encounter ([facility])] Episodic Substance-related disorders (1 source) Opioid abuse, [...] l admission (14 sources) Admission statuses; Translations: [retirement (current) use of opiate analgesic] Onset: 05-18-2019 [...] see dentistry until she is cleared by NAVIGATION OFFICER. She does not have an appointment for NAVIGATION OFFICER to next week. She has no OB [...] day(s), # 15 tab(s), Refills(s) 0, Pharmacy: [facility], 160, cm, 05/13/23 11:33:00 EST, Height/Length [...] Oral, q6hr Follow-up With When Contact Information [employer] [facility] In 3 days 05/16/2023 EDT [address] [place] [address] [facility] (1) Additional Instructions: Dentistry follow-up Patient Education [...] made to ensure accuracy, however, inadvertently computerized shredded filler hopper feeder mistakes may be present. Appropriate healthcare PPE was used in evaluating this patient. Problem List/Past Medical History Ongoing Acute hepatitis C Anxiety Apnea, sleep Dental caries PCOS (polycystic ovarian syndrome) Historical No qualifying data Procedure/Surgical History Delivery. Medications Inpatient ampicillin-sulbacta m additive + Sodium Chloride 0.9% intravenous solution 100 (more content not included)... Normal [facility] Comment on above: Result Comment: Elec tronically Signed By: Greg Stratton PA-C\.br\Date and Time Signed: 05/13/23 12:45 EST\.br\Electronically Co-Signed By: Jonathan Martinez DO\.br\Date and Time Co-Signed: 05/14/23 07:40 EST Consent for Treatmenton Consent for Treatment [id number] EC#1.00TIFF [facility] Discharge Instructionson Discharge Instructions [id number] 53#1.00TIFF [facility] ED Clinical Summaryon 2023 ED Clinical Summary [address] [address] ED Clinical Summary Person Information Name: TIA MONROE/[place] Age: 33 Years : 1990 Sex: Female Language: Senegalese PCP: Linda Sheppard DO Marital Status: Visit [...] 13:02:19 05/13/2023 13:02:19 05/13/2023 13:02:19 ADDRESS: [address] [facility] [id number] PHYS DOC NOTES: MEDICAL INFORMATION: Prescriptions Given: [facility], [address], [place] [id number], [phone] oxycodone (oxyCODONE 5 mg Tab) 1 Tablets [...] Dental Abscess Follow up: With: Address: When: [place] [id number] Business (1) In 3 days 05/16/2023 Comments: Dentistry follow-up DIAGNOSIS: Dental abscess Normal [facility] ED Patient Education Noteon 05-13-2023 ED Patient [...] these instructions at home: Medicines ? Take rffx-pfw-hdbiezb and prescription medicines only as told by [...] mouth. ? (more content not included)... Normal [facility] ED Patient Summaryon 024 ED Patient Summary [address] [address] Patient Discharge Instructions Person Information Name: TIA MONROE Age: 33 Years Arrival Date: 05/13/2023 11:19:01 Discharge Diagnosis: Dental abscess Primary Care Physician: Linda Sheppard DO Provider Information Primary Provider: Jonathan Martinez DO [employer] Rougher:Greg Stratton PA-C The exam and treatment you received in the Emergency Department were for an urgent problem and are not intended as complete care. It is important that you follow up with a doctor, nurse practitioner, or physician?s preschool assistant principal for ongoing care. If your symptoms become worse or you do not improve as expected and you are unable to reach your usual health care provider, you should return to the Emergency Department. We are available 24 hours a day. TIA MONROE has been given the following list of patient education materials, prescriptions and follow-up instructions: Follow-up Instructions: With: Address: When: [employer] [address] [phone] Business (1) In 3 days 05/16/2023 Comments: Dentistry follow-up In the event that this physician does not participate in your insurance network, please consult with your insurance company to find a nearby participating provider. Patient Education Materials: Dental Abscess A MESSAGE TO ALL PATIENTS REGARDING OPIOIDS PRESCRIPTION OPIOIDS: WHAT YOU NEED TO KNOW Prescription opioids can be used to help relieve lqnrptvp-nr-vxyuoi pain and are often prescribed following a [...] be struggling with addiction, tell your health health care / medical job titles and ask for guidance or call [facility] National Helpline at 4-872-4 (more content not included)... [facility] Discharge Instructionson Discharge Instructions [id number] 819#1.00TIFF Normal [facility] ED Clinical Summaryon 2023 ED Clinical Summary [place] [id number] ED Clinical Summary Person Information Name: TIA MONROE Maria Elena/[facility] Age: 33 Years : 1990 Sex: Female Language: Senegalese PCP: Linda Sheppard DO Marital Status: Visit [...] 23:59:00 05/11/2023 23:59:00 05/11/2023 23:59:00 ADDRESS: [address] [facility] [id number] PHYS DOC NOTES: MEDICAL INFORMATION: Prescriptions Given: [facility], [address], [place] [id number], [phone] amoxicillin-clavula cindi (Augmentin 875 mg oral tablet) [...] Medication PATIENT EDUCATION INFORMATION: Instructions: Dental Pain, Dgpi-cq-Toyi Follow up: With: Address: When: Linda Sheppard DO, Amelie C, [facility] [address] [place] [address] In 3 days 05/14/2023 DIAGNOSIS: 1:Pain, dental; 2:Infected dental caries; 3:First trimester ; Periapical abscess without sinus Normal [facility] ED Note-Physicianon 05-12-19 ED Note-Physician Basic Information Time Seen: Violet Walters PA-C 05/11/2023 22:59 Chief Complaint pt arrives for c/o dental pain on the right upper side. states cannot see her denitist d/t being . pt states seen in [place] ed and started on amoxcillin. History of Present Illness Patient is a 7-week 33-year-old female with history of PCOS that presents to the ED with her for evaluation of dental pain. Patient says pain started on Tuesday. She localizes it to the right upper jaw, radiates into her face ear and cheek. She went to [place] ER yesterday and was initiated on amoxicillin [...] day(s), # 14 tab(s), Refills(s) 0, Pharmacy: [facility], 160, cm, 05/11/23 21:53:00 EST, Height/Length Dosing, 110, kg, 05/11/23 21:53:00 EST, Weight Dosing chlorhexidine topical, 0.018 gm, 15 mL, Oral, BID, 480 mL, Refill(s) 0, (swish and spit; do not swallow), [facility], 160, cm, 05/11/23 21:53:00 EST, Height/Length Dosing, 110, kg, 05/11/23 21:53:00 EST, Weight Dosing (more content not included)... Normal [facility] Comment on above: Result Comment: Elec [...] these instructions at home: Medicines ? Take ogwt-xqd-igbhwpu and prescription medicines only as told by [...] to the area. Brushing your teeth ? [place] your teeth twice a day using a [...] when you eat or drink. ? Take ksdu-exn-nsszbux and prescription medicines only as told by [...] Reviewed: 11/26/2020 Elsevier Patient Education ? 2022 [employer] Normal [facility] ED Patient Summaryon 024 ED Patient Summary [address] [address] Patient Discharge Instructions Person Information Name: TIA MONROE Age: 33 Years Arrival Date: 05/11/2023 21:25:54 Discharge Diagnosis: 1:Pain, dental; 2:Infected dental caries; 3:First trimester ; Periapical abscess without sinus Primary Care Physician: Linda Sheppard DO Provider Information Primary Provider: Zac Fields M.D. Advanced [employer] Rougher:Violet Walters PA-C The exam and treatment you received in the Emergency Department were for an urgent problem and are not intended as complete care. It is important that you follow up with a doctor, nurse practitioner, or physician?s preschool assistant principal for ongoing care. If your symptoms become [...] With: Address: When: Linda Sheppard DO [address], [address], [facility] [address] [place] [address] In 3 days 05/14/2023 In the event that this physician does not participate in your insurance network, please consult with your insurance company to find a nearby participating provider. Patient Education Materials: Dental Pain, Ivzj-zh-Byze A MESSAGE TO ALL PATIENTS REGARDING OPIOIDS PRESCRIPTION OPIOIDS: WHAT YOU NEED TO KNOW Prescription opioids can be used to help relieve bipkhykk-zy-bhlpfb pain and are often prescribed following a [...] be struggling with addiction, tell your health health care / medical job titles an (more content not included)... Normal [facility] Consent for Treatmenton Consent for Treatment [id number] 96#1.00TIFF Normal [facility] Progesteroneon 12-28-2022 Progesterone 12.60 ng/mL Normal [facility] Comment on above: Result Comment: Female: Follicular phase <0.19 ng/mL Ovulation phase 0.06-4.14 ng/mL Luteal phase 4.11-14.5 ng/mL Postmenopausal <0.13 ng/mL Performed By: #### P NICKY #### [place] [address] [place] [address] Headend Technician: Thor Hernández MD Progesteroneon 11-24-2022 Progesterone 7.18 ng/mL High 0.0-0.15 [facility] Comment on above: Result Comment: Female: Follicular phase <0.19 ng/mL Ovulation phase 0.06-4.14 ng/mL Luteal phase 4.11-14.5 ng/mL Postmenopausal <0.13 ng/mL Performed By: #### P NICKY #### [place] [id number] [place], [place] [address] Headend Technician: Thor Hernández MD HCG, ,Urineon 09-04 Beta HCG ( test) Ql (U) Negative Normal NEG [facility] Comment on above: Performed By: #### U HCG #### [facility] [address] [place] [address] Headend Technician: Guero Sandoval MD , Urineon HCG ( test) Ql (U) Negative NEGATIVE [facility] XR ANKLE RIGHT (MIN 3 VIEWS) on [...] Bettye Johnson MD 09/04/22 Final result Normal [facility] FINDINGS/IMPRESSION : No acute displaced fracture identified. Ankle mortise is symmetric. There is a 1 mm tiny calcified body which is remote appearing near the distal fibular tip. Minimal ankle soft tissue edema. [facility] EXAM: XR ANKLE RIGHT (MIN 3 VIEWS) INDICATION: Reason for exam:->swelling COMPARISON: None. TECHNIQUE: Radiographs as described above [facility] Bettye Johnson MD - 09/04/2022 EXAM: XR ANKLE RIGHT (MIN 3 VIEWS) INDICATION: Reason for exam:->swelling COMPARISON: None. TECHNIQUE: Radiographs as described above IMPRESSION: FINDINGS/IMPRESSION : No acute displaced fracture identified. Ankle mortise is symmetric. There is a 1 mm tiny calcified body which is remote appearing near the distal fibular tip. Minimal ankle soft tissue edema. [facility] Radiology Study observation (narrative) [facility] XR ANKLE RIGHT (MIN 3 VIEWS) Ordered By: Bettye Johnson on 09-04-2022 [facility] Work Phone: Coding Summary.on 07-09-2022 Coding Summary. CD:[id number] bWw+PGhlYWQ+EJ7NRXN nK45xrDAlkR4mL6OTSU lOSywgQVBQTElOSyIgb lUbST2xoIShOQEg IC8+EZ5cLQDlVbffhDU vo6K0jJB9M10unz3sFT sybJM9TAAoZdOrhiirb 0zttIs5EDjwOtljFnRy JJAriD68BJI3tH63Eu4 3qGEqhHEml5wbbNu2Dv BjCRBeUGD9sRlqXJlqa 6XyXVBeA85bkFMcu0R9 IGNvbGxhcHNlOyBlbXB 1vS5uHPzotctrp7cdno gyHuz8dt53zXGqm2X4p BW2Y3CrebG3DQKksLKt KserzWASjB0ekcebo4k hvahlUpGkOKVoWKz4IV u1JIAfnWblAsIrDT94G RA7KKSrurAmK5MvXYHj iIskEgZ1z7A6Vy3VU4D KNjtoC0OXWBAXTHhvpO Q+BY90ii68G2YoRxbpJ ox8GTTxJWJ2rYK3vV3d SSSlCRtft8M6vTK9B7Q tsiXvup7nk2tbSFLoRS ceV99eyRMng1N1UMEvc KF8DSWdhWfoDeVcdO34 Oyc+EBIzlWxjv4VdHst wi9bba7wjrCa5QevmPU FqvhKetDmjRTW1n0PzI t0zPKUylPI6aCF9lW9r IvCdSpD0EAlnZ100AsL enMJcBkndJ25cE7TcsP A+QFMvFax1WCLyjOzgH P3fK3EzUCWrstbfaUSt wCfwPW3yYMGwevhtQUX kdI6bUXXvZ0n0CkTaPe A5YDatM4LqCIVwkbsmM t85xU8kHeCkBcP9NKon N5NhqiV2AFAocKTiJKv hEFV0M39xx4A3JOTdXW MlMUT6kIF4mP0nyRjxi jogbGVmdDsgdmVydGlj JSllZStfR165ZKWyiLk nPkNvZGluZyBEYXRlOi AgMDUvMDUvMjAyMzwvd GQ+EODfMUK2oCubNOQz sWAuAWhhOo5byWltxDr zRT6wRHXrjbljJGOrgD 0jDJGcmHMfhBolVG9cJ IBqeohba190JuHdZCN9 MBSeiPShI5RntL2kRiC aPWYeSRWuB8BhiDSyZR hmP560XAbvYeK8LKAgx pHkC3EpFACqkIegLkX8 g3M5Gf9Dp7ElqbdkL7O cuGSrGuZgYttxSOl6U0 RkPjwvdHI+FW62AVDfH K91JUt5IAR2oYogKMfh MAKpK0MolP0sGxSeANU kZGRkOyc+PHRhYmxlIH dpZHRoPScxMDAlJyBzd RcoPC9xMk2hHRVeITZa hMgxeZLpBiYtk5fzPNR yGWeyQX8chKlaU9WufR I0KTKxt2u0Dh45F92oJ 3JvdXA+PQVevNU5hCD9 kC7iPjTtMsX2DHshY63 4LqUebHEiYqocy5oxn1 tmbGz3SfT0OVBylyNnp AczOQR0g1IqLv86U35e IHdpZHRoPSIxNSUiIHZ uuWmyml4hgO2bOw8+PG JkhUY7mFZ6qC7jRxKcD iR6BMrlS678GfBwwLLg Zgumc0cey8pqgId5ZzB oYHEazlPuqRebJQU8x7 SgLz11N2CryVoiy5ClQ gw1fa87rPSku4F3wAX5 C8PtTAKempauuORxoEm sME2hYQDcqjamHWJzwE 3nMWZpH2n0JnAhPnV0Z CwtO0TblaX3SQDytQEz GMDluZWKoY6fpbwyi2x mwgxwMuHzTOLlXMx0LC x5OXYpoGepApLnYDS3P uK5SEI8dZHthT3ceLhi cimxnN8xXki+DBM7kCS ayICRTE9pYjcooXY+PH YuKKL0mAgjTZbbBRWvm M6sBBMxL9m0HzYmZdF4 PEwqE2ZutwX6KEIgoTM lOWYovVFPlC0tnrwkk7 vwerjmRbMuPMItETo5H Os5BDWnhYqxUuNhQDL9 XkS1LJT1kVScrC4zlXq qgohgfZ7vNov+QmlydG xsAPF3POo4G1KyMju9E CGeiGpfOT8jkZZvWJrw On6atDpnuKgaLQ6qRMW byzawb065EoXvc9snKE WbxROgBQrlFXM2H78wf 6Z8FZIaXKUcHXJ6oDI8 mU0ybTsdlmtrpZMzwFr gdmVydGljYWwtYWxpZ2 64THGqoFpvLgLbUMz0E 0YdXvv3TCBtwNifSO2q vGErWJfpKb9wzWgpbQx bYW0sOIIsfyawm205Ma Jxl6sxXABndIIaZHylJ XY5I04yr4Y7GPOtTPXn SMI2uLD1iD4vsFnfquj gbGVmdDsgdmVydGljYW cpNUedU366ZAFprVmbV cCkqLa1Y6GxHcm0ZKMo kEpeVQ8odVGuONtmRl3 ruRaoyYpnQL0bFFFnvw cpc444GnGct3ypSLRtw YGwHEpgJUY4P12di1Q8 XNPvRFLySRN4bNP7yE9 hbGlnbjogbGVmdDsgdm NmmMyqVYrqPEzeU409G HRvcDsnPlBhdGllbnQg GZseKYx6L5XvOgureBY +GQ27NWCkAM85aBDrgW Bhq3cmbLc5QaObVBShT KB5qNobQIayn9QvAKGv A48cfKLuv2W4ODRfmRt mtXDjDeSzvYM7pN2nKV kyrchbu0tncdnuBvnqi 8wjzd85hU74V04gQQpf ZHRoPSIzMCUiIHZhbGl erf9bwT8gZt2+PGNvbC Z4xKH6oT9jICRfCsB0X MwjV770GeIulWDjDyzs w0eid5jtgZf4EeF0QLE ndgNxmUmgALL5q4WgCp 24S26zILwfEFSqCXAtK SAtUZLygLzwvu0vfI3a Ii8+MIXnwMH9eKY7oU5 aRyArVeY4GCimI316Hm StzHUsNsapQ53fH6Myr XA+GHGiJol9BCKgeNti FD2miJElQAznRv2xUUB 9HqJnAlClRNyqI5HbSK NwyduydxkluXB1CHMoV EQraI40Cp5vsQbpMKMd fPPOsR2crvpmi2rrjvb hFhRiQARmPVx0HTg6QD NpzYghVuCqPQX8YoH1Q NZ1wGSqkK6vbBexzbsx mU8hR7CuQKJeevpxXr9 4hO6fOaRsOiH7VNgwSn c+Wj9EWyLCNwquInOXN kRJRTwvdGQ+PHRkIHN0 xOwiVSayMVLmcA5eKTS qK7i5SqQmCyR0ZYcbR5 VbEXTbbkmoOy58xC2dS rWjVyH5HPmwX6ObxtA9 SRFioKXrUYgfMBE4M81 gn9K7JBWfRGBxGSV5xT P7zI2oaLtjmcdluMHoz DsgdmVydGljYWwtYWxp K088UXFsiGzoSnTfHbA 8FsB2IUY8L4ByKfc2OQ EgeUqbIL4guLRrXJgyH n3vzEcrkBhzMF4eLGKe verjQWDuvN4bNJKwcII jeVthBI0nYYCooewjd6 81BbIvGTD2ZEVjpOPiR 8OzjK1pBfXfJXSnUQLo V4SuqFQmDCklR973VDn qYmR6SZLpybXxF0EcWN GsjYiaHkX6u2G3Sa7wT iBZZWFyczwvdGQ+PHRk QXM2jLfcZJsfMXNfbQ4 uXIHsE5w2KoPfNsL5WA uyE3RdJEKdhgihTw69p H1fDeMoDiH0LZraD3Sk qcO4WOQoxAGkYIfsUUW 7N19zj6W7IOJaYMXmDK P1oXD6xR5roXqyhydvr GVmdDsgdmVydGljYWwt ASmxP164OTXeeQroKjL lbWFsZTwvdGQ+PHRkIH D9qDzfRDeeXFHewG6xX HJlC9s2ReEhMdS1XOpm R3DmQNXqzhxbPc68rY9 nGqZhYvE7HAkaH9Plbk E5MLIztKSgQYbxCJL9F 79ao9I6PNDxSWVlEZS4 lDO3dZ6uvYwubkbcsNH mdDsgdmVydGljYWwtYW qaP069AZQkeMrlSiUec D6yRHRiMVqqvNDvbGpr dGQ+TA04ls20K9GmFah wSfa7RZMoIAK9bTG0iR 8eJZUiELgot1D9wPG5P 2LhjeVmlv8fh1uiGMFu QMjbY25qiKFta4L6GIR xaJM8MDFpaJhuVoQqaH 93Oyc+ZAVdqAmbv0HgK xlbm8ooy5mzgLx0YdEo OWNfmjHwePyaHNG0x3I vPk84T46vYDfkUIVlLB QpFEVlFXOutKotxb6jv G9wIi8+PMRjjGF3iIG3 dR1hQxMqEfN5QTpuI57 4XnAulMRyHywuu3mzx7 izgSe2CmQcHXNvhoZka HvwNIJ7n1JyEy79G6Pr dIxpe1PvUhk1lu64eNQ vt6C6wPJ6H5DqYGGlad yuvWUapWdtBQ5yWDLjd vsaALByfU0dCJNnQ3x2 LiLyBrC7XQcsP3NzmpA 6IGJvbGQgMTBwdCBUaW 4mnwlye0emvbsfFrGwD JZpEUi6FRq2CZLxkCpe ZyWrDBL6MqZ5MZB2rAB igP5oeQuqbfxiqY5lIm c+HYp7o5bshQOsVL9cu MM2EW17VM37wTKvc0C6 jAS5P1ArJFFxutlboev ncAX1LJKeOMNwqD23Ic 2umZzjUi3kHFQvIWB2U PPhuPPjW9CdrO8xQcVd SYNdMGPrC8RmuJCuSGu dW239HXhoXeU1YIXdoy QxT3JdOQVoeRpaWmZ9n 2G6Dd4UGR15CC64WF25 zYKlb9R3iGW8A1UyQFF pyhxpbhkvcQE9BWFuYS RgbX77Ws8yeJfsAg8vU QOjVNW8LIGelVCfC9Sh bX9jVbOwANNyBJDbM4B klGXhZJpbW752XGyuGz G3APWzxiUeJ4WvMWTld PstBsA3v9K3Cl5QCr02 ZZ42EB19eNIox6O5zCZ 3L1YeOUUqldggdttcsR N6ZHJzEUXtpH90Ne6dv DevAw2gNLLaEGN1KDZe sTBwE9YpoJ1uNvQqQQD tUXYlS7ZrrKMsWHjjW8 47AUhxZqC7OBQsrlDhJ 5EzSPOuuPlaOpH8f3U0 Ec1SROrroff6H4EjFsn vdHI+FX34CONtGV47wJ EfsVElz5pkhKo3TfKuO QZhAXP1lXzyLPosx3Vv KWQjW33t (more content not included)... Normal [facility] Consultation Noteon 07-07-19 Consultation Note Patient: TIA [...] Problems Acute hepatitis C / SNOMED CT 352151986 / Confirmed Anxiety / SNOMED CT 68764804 / Confirmed Apnea, sleep / SNOMED CT 339927676 / Confirmed Dental caries / SNOMED CT 687946035 / Confirmed PCOS (polycystic ovarian syndrome) / SNOMED CT 743114774 / Confirmed Histories Past Medical History: Active Dental caries ([id number]) Family History: No family history items have [...] Patient agrees with plan of care. Normal [facility] Comment on above: Result Comment: Elec tronically Signed By: Bing PEDRAZA, Todd Spencer.br\Date and Time Signed: 07/06/22 13:28 EDT DHEA SERUMon 07-04-2022 Dehydroepiandrosterone (DHEA) 220 ng/dL Normal 31-701 Comment on above: Performed By: #### D KAN. ####[facility] [id number] [place] [id number][address] Nito Sanchez DHEA-SULFATEon 06-30-2022 DHEA-Sulfate 106.0 ug/dL Normal 84.8-378.0 [facility] Comment on above: Performed By: #### D DEEPTI ####[facility] [id number] [place] [id number]. Nito Sanchez FSHon 06-30-2022 FSH 6.6 mIU/mL Normal Comment on above: Result Comment: Adul t Female: Follicular phase 3.5 - 12.5 Ovulation phase 4.7 - 21.5 Luteal phase 1.7 - 7.7 Postmenopausal 25.8 - 134.8 Performed By: #### L BCFSH #### [facility] [address] [place] [address] Dr. Nito Sanchez LUTEINIZING HORMONE (LH)on 0 06-30-2022 LH 18.9 mIU/mL Normal Comment on above: Result Comment: Adul t Female: Follicular phase 2.4 - 12.6 Ovulation phase 14.0 - 95.6 Luteal phase 1.0 - 11.4 Postmenopausal 7.7 - 58.5 Performed By: #### L BCLH #### [facility] [address] [address] [address] Nito Sanchez PROLACTINon 06-30-2022 Prolactin 5.3 ng/mL Normal 4.8-23.3 Comment on above: Performed By: #### P ROLAC #### [facility] [address] [address] [address] Nito Sanchez CBC AUTO DIFFon 06-29-2022 BASO # 0.1 103/ul Normal 0.0-0.1 Comment on above: Performed By: #### C BC #### [facility] [address] [address] [address] Nito Sanchez Basophils/100 WBC (Bld) 0.5 % Normal 0.2-2.0 [facility] Comment on above: Performed By: #### C BC #### [facility] [address] [place] [address] Dr. Nito Sanchez EO # 0.2 103/ul Normal 0.0-0.7 Comment on above: Performed By: #### C BC #### [facility] [address] [place] [address] Dr. Nito Sanchez Eosinophils/100 WBC (Bld) 1.6 % Normal 0.9-7.0 Comment on above: Performed By: #### C BC #### [facility] [address] [place] [address] Dr. Nito Sanchez Erythrocyte distribution width (RBC) [Ratio] 13.6 % Normal 11.0-15.0 Comment on above: Performed By: #### C BC #### [facility] [address] [place] [address] Dr. Nito Sanchez Hematocrit (Bld) [Volume fraction] 39.7 % Normal 36.0-48.0 Comment on above: Performed By: #### C BC #### [facility] [address] [place] [address] Dr. Nito Sanchez Hemoglobin (Bld) [Mass/Vol] 13.1 g/dL Normal 12.0-16.0 Comment on above: Performed By: #### C BC #### [facility] [address] [place] [address] Dr. Nito Sanchez IG # 0.05 10e3/ul Critically high 0.00-0.03 [facility] Comment on above: Performed By: #### C BC #### [facility] [address] [place] [address] Dr. Nito Sanchez IG % 0.5 % Normal 0.0-0.5 Comment on above: Performed By: #### C BC #### [facility] [address] [address] [address] Nito Sanchez LYMPH # 2.6 103/ul Normal 1.2-3.8 Comment on above: Performed By: #### C BC #### [facility] [address] [address] [address] Nito Sanchez Lymphocytes/100 WBC (Bld) 25.3 % Normal 20.5-60.0 Comment on above: Performed By: #### C BC #### [facility] [address] [place] [address] Dr. Nito Sanchez MANUAL DIFF REQ NO Normal [facility] Comment on above: Performed By: #### C BC #### [facility] [address] [place] [address] Dr. Nito Sanchez MCH (RBC) [Entitic mass] 27.1 pg Normal 26.7-34.0 Comment on above: Performed By: #### C BC #### [facility] [address] [place] [address] Dr. Nito Sanchez MCHC (RBC) [Mass/Vol] 33.0 g/dL Normal 29.9-35.2 Comment on above: Performed By: #### C BC #### [facility] [address] [place] [address] Dr. Nito Sanchez MCV (RBC) [Entitic vol] 82.2 fL Normal 81.0-99.0 [facility] Comment on above: Performed By: #### C BC #### [facility] [address] [place] [address] Dr. Nito Sanchez MONO # 0.5 103/ul Normal 0.3-0.8 Comment on above: Performed By: #### C BC #### [facility] [address] [place] [address] Dr. Nito Sanchez Monocytes/100 WBC (Bld) 5.0 % Normal 1.7-12.0 [facility] Comment on above: Performed By: #### C BC #### [facility] [address] [address] [address] Nito Sanchez NEUT # 6.9 103/ul Critically high 1.4-6.5 [facility] Comment on above: Performed By: #### C BC #### [facility] [id number] Nito Sanchez Neutrophils/100 WBC (Bld) 67.1 % Normal 43.0-75.0 Comment on above: Performed By: #### C BC #### [facility] [address] [place] [address] Dr. Nito Sanchez Platelet mean volume (Bld) [Entitic vol] 10.0 fL Normal 9.5-13.5 [facility] Comment on above: Performed By: #### C BC #### [facility] [address] [place] [address] Dr. Nito Sanchez PLT 313 103/ul Normal 150-450 [facility] Comment on above: Performed By: #### C BC #### [facility] [address] [place] [address] Dr. Nito Sanchez RBC 4.83 106/ul Normal 4.20-5.40 Comment on above: Performed By: #### C BC #### [facility] [address] [place] [address] Dr. Nito Sanchez WBC 10.3 103/ul Normal 4.0-11.0 Comment on above: Performed By: #### C BC #### [facility] [address] [place] [address] Dr. Nito Sanchez Consent for Treatmenton 06-06 Consent for Treatment [id number] 650#1.00CD:127 Normal [facility] FREE T4on 06-29-2022 Free T4 [Mass/Vol] 1.01 ng/dL Normal 0.76-1.46 [facility] Comment on above: Performed By: #### F T4 #### [facility] [address] [place] [address] Dr. Nito Sanchez GLYCOHEMOGLOBIN A1Con 2022 ADA RECOMMENDATION SEE BELOW Normal [facility] Comment on above: Result Comment: ADA RECOMMENDED LIMIT 4.0 - 6.0 ADA THERAPEUTIC TARGET < 7.0 ACTION SUGGESTED > 7.0 Performed By: #### A 1C #### [facility] [address] [place] [address] Dr. Nito Sanchez Glucose [Mass/Vol] 108 mg/dL Normal [facility] Comment on above: Performed By: #### A 1C #### [facility] [address] [place] [address] Dr. Nito Sanchez HbA1c (Bld) [Mass fraction] 5.4 % Normal 4.5-6.2 Comment on above: Performed By: #### A 1C #### [facility] [address] [place] [address] Dr. Nito Sanchez HIPAA Forms Officeon 023 HIPAA Forms Office [id number] 602#1.00CD:127 Normal [facility] Legal Correspondence Officeo n 06-29-2022 Legal Correspondence Office [id number] 270#1.00CD:127 Normal [facility] Legal Correspondence Office [id number] 787#1.00CD:127 Normal [facility] Office/Clinic Note-Physician on 06-29-2022 Office/Clinic Note-Physician [id number] 515#1.00CD:127 Normal [facility] Orders Officeon 06-29-2022 Orders Office [id number] 642#1.00CD:127 Normal [facility] PREG QUANT HCGon 06-29-2022 HCG QUANT 1 mIU/mL Normal Comment on above: Performed By: #### T SH, PREGQNT #### [facility] [address] [place] [address] Dr. Nito Sanchez HCG RANGE SEE BELOW Normal Comment on above: Result Comment: 5-50 0.2-1 WEEK 50-500 1-2 WEEKS 100-5,000 2-3 WEEKS 500-10,000 3-4 WEEKS 1,000-50,000 4-5 WEEKS 10,000-100,000 5-6 WEEKS 15,000-200,000 6-8 WEEKS 10,000-100,000 2-3 MONTHS Performed By: #### T BERNICE, PREGQNT #### [facility] [address] [address] [address] Nito Sanchez Patient Correspondenceon Patient Correspondence [id number]#1.00CD:127 Normal [facility] Patient Correspondence [id number] 137#1.00CD:127 Normal [facility] Patient Correspondence [id number] 273#1.00CD:127 Normal [facility] Patient Correspondence [id number] 879#1.00CD:127 Normal [facility] Patient Correspondence [id number] 956#1.00CD:127 Normal [facility] Patient History Officeon Patient History Office [id number]#1.00CD:127 Normal [facility] Patient History Office [id number] 721#1.00CD:127 Normal [facility] Radiology Outside Office Replanter yon 06-29-2022 Radiology Outside Office Copy [id number] 142#1.00CD:127 Normal [facility] TSHon 06-29-2022 TSH 0.848 uIU/mL Normal 0.358-3.740 [facility] Comment on above: Performed By: #### T BERNICE, PREGQNT #### [facility] [address] [address] [address] Nito Sanchez US PELVIS AND TRANSVAGon [...] by: BETTYE DANIELS Date: 2022-06-29 15:17 Normal PAP ACOG PANEL 2: 30 to 65on 06-19-2022 . . Normal Comment on above: Result Comment: Perf ormed at: WB Performed By: #### [id number] #### [facility] [address] [address] [address] Nito Sanchez Age Gdln ACOG Testing 30-65 Normal Comment on above: Performed By: #### 4 [id number] #### [facility] [address] [address] [address] Nito Sanchez DIAGNOSIS: Comment Normal Comment on above: Result Comment: NEGA TIVE FOR INTRAEPITHELIAL LESION OR MALIGNANCY. Performed at: WB Performed By: #### [id number] #### [facility] [address] [address] [address] Nito Sanchez HPV Aptima Negative Normal Negative Comment on above: Result Comment: This nucleic acid amplification test detects fourteen high-risk HPV types (16,18,31,33,35,39,45,51,52,56,58,59,66,68) without differentiation. Performed at: =G Performed By: #### 4 [id number] #### [facility] [address] [place] [address] Dr. Nito Sanchez HPV Genotype Reflex Comment Normal [facility] Comment on above: Result Comment: Crit erzak not met, HPV Genotype not performed. Performed at: WB Performed By: #### 4 [id number] #### [facility] [address] [place] [address] Dr. Nito Sanchez Methodology: Comment Normal Comment on above: Result Comment: This liquid based ThinPrep(R) pap test was screened with the use of an image guided system. Performed at: WB Performed By: #### [id number] #### [facility] [address] [place] [address] Dr. Nito Sanchez Note: Comment Normal Comment on above: Result Comment: The Pap smear is a screening test designed to aid in the detection of premalignant and malignant conditions of the uterine cervix. It is not a diagnostic procedure and should not be used as the sole means of detecting cervical cancer. Both false-positive and false-negative reports do occur. . Performed at: WB Performed By: #### 4 [id number] #### [facility] [address] [place] [address] Dr. Nito Sanchez Performed by: Comment Normal [facility] Comment on above: Result Comment: Nanda Treadwell, Casing Trimmer (ASCP) Performed at: WB Performed By: #### [id number] #### [facility] [address] [place] [address] Dr. Nito Sanchez Specimen adequacy: Comment Normal [facility] Comment on above: Result Comment: Sati sfactory for evaluation. Endocervical and/or squamous metaplastic cells (endocervical component) are present. Performed at: WB Performed By: #### 4 [id number] #### [facility] [address] [place] [address] MAXILLOFACIAL WO CONTRAST [...] by: Phil Mary MD 05/11/22 Final result [facility] Recent extraction of the right mandibular and maxillary second molar teeth with presence of air in the respective tooth sockets. No evidence of edema in the sublingual space or the buccal space Probable periapical abscess involving the right maxillary premolar tooth adjacent to the first molar tooth. [facility] EXAM: CT MAXILLOFACIAL WO CONTRAST HISTORY: [...] visualized intracranial contents show no acute process. [facility] Phil Mary MD - 05/11/2022 EXAM: [...] tooth adjacent to the first molar tooth. [employer] Work Phone: Radiology Study observation (narrative) Vaughn Burton [employer] Work Phone: CT MAXILLOFACIAL WO CONTRAST Ordered By: Phil Mary on 05-11-2022 [facility] [employer] Work Phone: HCG, ,Urineon 05-11 Beta HCG ( test) Ql (U) Negative Normal NEG [facility] Comment on above: Performed By: #### U HCG #### [facility] [address] [place] [address] Headend Technician: Guero Sandoval MD Urine Preg (Lab)on 3 Beta HCG ( test) Ql (U) Negative NEGATIVE [facility] [employer] HCG, Quantitative, on 03-29-2022 hCG Quant NINF [facility] Comment on above: Non-preg premeno <=5 Postmeno <=8 Male <=3 If HCG results do not concur with clinical observations, additional testing to confirm results is recommended. [facility] [employer] COVID-19, Rapidon 05-18-2022 SARS-CoV-2 (COVID-19) RNA KALPESH+probe Ql (Unsp spec) Not detected Not Detected [facility] Comment on above: Rapid NAAT: The specimen [...] management decisions. Fact sheet for Healthcare Providers: https://www.fda.gov/media/270909/download Fact sheet for Patients: https://www.fda.gov/media/296451/download Methodology: Isothermal Nucleic Acid Amplification Specimen Description .NASOPHARYNGEAL SWAB [facility] Strep Screen Group A Throato n 07-22-2021 S. pyogenes Ag Ql (Throat) Negative NEGATIVE [facility] Comment on above: Rapid Strep A negati ve. A negative Rapid Group A Strep Screen result does not rule out the possibility of Group A Streptococci in the specimen. A Group A Strep DNA test is available upon request. Source .THROAT SWAB [facility] MR LUMBAR SPINE WITHOUT CONT [facility] 06-17-2021 MR LUMBAR SPINE WITHOUT CONTRAST [...] stenosis. 2. No fracture or spondylolisthesis. [facility] Workstation ID: [id number] Dictated by: JONATHAN LINARES on TueJun 18, 2021 11:51:00 AM EDT Transcribed by: ZULMA CARDENAS on TueJun 18, 2021 11:58:13 AM EDT Finalized by: JONATHAN LINARES on TueJun 18, 2021 12:35:45 PM EDT [facility] Comment on above: Order Comment: Injur y/Trauma or Illness?:Illness/Other How long have you had these symptoms (acute/chronic)?:Chronic Reason for exam?:LBP AND bilat hip pain x years, nki Type of Exam?:Subsequent/Follow-up Additional signs and symptoms?:. CBC panel Auto (Bld)on 04-16 Erythrocyte distribution width (RBC) [Entitic vol] 14.0 % 11.6 - 14.8 % [facility] Hematocrit (Bld) [Volume fraction] 38.6 % 36.0 - 46.0 % [facility] Hemoglobin (Bld) [Mass/Vol] 12.1 g/dL 12.0 - 16.0 g/dL [facility] Interpretation and review of laboratory results Abnormal [facility] MCH (RBC) [Entitic mass] 25.4 pg Low 26. 0 - 34.0 pg [facility] MCHC (RBC) [Mass/Vol] 31.3 g/dL 31.0 - 37.0 g/dL [facility] MCV (RBC) [Entitic vol] 81.1 fL 80.0 - 100.0 fL [facility] Platelet mean volume (Bld) [Entitic vol] 10.0 fL 9.4 - 12.4 fL [facility] Platelets (Bld) [#/Vol] 379 10*3/uL [facility] RBC (Bld) [#/Vol] 4.76 10*6/uL [facility] WBC (Bld) [#/Vol] 9.85 10*3/uL [facility] Comprehensive metabolic 2000 panelon 04-16-2021 Albumin [Mass/Vol] 3.7 g/dL 3.2 - 5.2 g/dL [facility] ALP [Catalytic activity/Vol] 95 U/L 40 - 140 U/L [facility] ALT [Catalytic activity/Vol] 36 U/L 14 - 65 U/L [facility] Anion gap [Moles/Vol] 11 mmol/L 10 - 2 0 mmol/L [facility] AST [Catalytic activity/Vol] 22 U/L 0 - 45 U/L [facility] Bilirubin [Mass/Vol] 0.3 mg/dL 0.0 - 1 .3 mg/dL [facility] Calcium [Mass/Vol] 9.3 mg/dL 8.4 - 10. 2 mg/dL [facility] Chloride [Moles/Vol] 105 mmol/L 98 - 10 8 mmol/L [facility] Creatinine [Mass/Vol] 0.68 mg/dL 0.40 - 1.10 [facility] GFR/1.73 sq M.predicted CKD-EPI (S/P/Bld) [Vol rate/Area] 117 >=60 mL/min/1.73 m2 [facility] Glucose [Mass/Vol] 76 mg/dL 65 - 99 mg/dL [facility] HCO3 [Moles/Vol] 26 mmol/L 21 - 32 mmol/L [facility] Interpretation and review of laboratory results Normal [facility] Potassium [Moles/Vol] 4.2 mmol/L 3.5 - 5.1 mmol/L [facility] Protein [Mass/Vol] 7.5 g/dL 6.0 - 8.0 g/dL [facility] Sodium [Moles/Vol] 138 mmol/L 135 - 145 mmol/L [facility] Urea nitrogen [Mass/Vol] 13 mg/dL 8 - 25 mg/dL [facility] Urea nitrogen/Creatinine [Mass ratio] 19.1 mg/mg [facility] The eGFR should be used for monitoring renal function only and not for medication dosing. [facility] Lipid 1996 panelon Cholesterol [Mass/Vol] 195 mg/dL 100 - 199 mg/dL [facility] Comment on above: National Cholesterol Education Program Guidelines: Cholesterol Desirable: <200 mg/dL Borderline High: 200-239 mg/dL High: greater than or equal to 240 mg/dL Cholesterol in HDL [Mass/Vol] 56 mg/dL 40 - 59 [facility] Comment on above: National Cholesterol Education Program Guidelines: HDL Cholesterol Low: <40 mg/dL Near Optimal: 40-59 mg/dL High: greater than or equal to 60 mg/dL Cholesterol in LDL [Mass/Vol] 109 mg/dL 10 - 130 mg/dL [facility] Comment on above: National Cholesterol Education Program Guidelines: LDL Cholesterol Optimal: <100 mg/dL Near Optimal/above Optimal: 100-129 mg/dL Borderline High: 130-159 mg/dL High: 160-189 mg/dL Very High: greater than or equal to 190 mg/dL Cholesterol non HDL [Mass/Vol] 139 mg/dL [facility] Comment on above: National Cholesterol Education Program Guidelines: NON HDL Cholesterol Desirable: <130 mg/dL Borderline High: 130-159 mg/dL High: 160-189 mg/dL Very High: > or = 190 mg/dL Cholesterol.total/Cholest elton in HDL [Mass ratio] 3.5 {ratio} ratio [facility] Comment on above: Female Cholesterol/H DL Ratio: Average risk: 4.4 1/2 average risk: 3.3 2 x average risk: 7.1 Interpretation and review of laboratory results Abnormal [facility] Triglyceride [Mass/Vol] 151 mg/dL High 30 - 150 mg/dL [facility] Comment on above: National Cholesterol Education Program Guidelines: Triglyceride Normal: <150 mg/dL Borderline High: 150-199 mg/dL High: 200-499 mg/dL Very High: greater than or equal to 500 mg/dL No Panel Informationon 04-16 [facility] TSH DL <= 0.005 mIU/L Qnon 0 2-10-2022 Interpretation and review of laboratory results Normal [facility] TSH Qn 1.04 m[IU]/L [facility] Basic Metabolic Panel w/ Ref ray to MGon 03-23-2021 Anion gap [Moles/Vol] 13 mmol/L 9 - 17 mmol/L [facility] Calcium [Mass/Vol] 8.8 mg/dL 8.6 - 10. 4 mg/dL [facility] Chloride [Moles/Vol] 104 mmol/L 98 - 10 7 mmol/L [facility] CO2 [Moles/Vol] 21 mmol/L 20 - 31 mmol/L [facility] Creatinine [Mass/Vol] 0.65 mg/dL 0.50 - 0.90 mg/dL [facility] GFR >60 >60 mL/min [facility] GFR Non- >60 >60 mL/min [facility] GFR/1.73 sq M.predicted MDRD (S/P/Bld) [Vol rate/Area] [facility] Comment on above: Average GFR for 30-3 9 years old: 107 mL/min/1.73sq m Chronic Kidney Disease: <60 mL/min/1.73sq m Kidney failure: <15 mL/min/1.73sq m eGFR calculated using average adult body mass. Additional eGFR calculator available at: http://www.[employer]/multiple_crcl_2012.htm GFR/1.73 sq M.predicted MDRD (S/P/Bld) [Vol rate/Area] NOT REPORTED [facility] Glucose [Mass/Vol] 104 mg/dL High 70 - 99 mg/dL [facility] Interpretation and review of laboratory results Abnormal [facility] Potassium [Moles/Vol] 3.7 mmol/L 3.7 - 5.3 mmol/L [facility] Sodium [Moles/Vol] 138 mmol/L 135 - 144 mmol/L [facility] Urea nitrogen (BldV) [Mass/Vol] 15 mg/dL 6 - 20 mg/dL [facility] Urea nitrogen/Creatinine (Bld) [Mass ratio] 23 High [facility] CBC Auto Differentialon 03-07 Absolute Eos # 0.10 [facility] th Absolute Immature Granulocyte NOT REPORTED [facility] Absolute Lymph # 0.60 Low [facility] Absolute [place] # 0.50 [facility] Basophils (Bld) [#/Vol] 0.00 10*3/uL [facility] Basophils/100 WBC (Bld) 0 % 0 - 2 % [facility] Differential Type YES [facility] Eosinophils/100 WBC (Bld) 2 % 0 - 5 % [facility] Hematocrit (Bld) [Volume fraction] 34.6 % Low 36 - 46 % [facility] Hemoglobin.gastrointestin al spec 1 Ql (Stl) 11.7 g/dL Low 12.0 - 16.0 g/dL [facility] Immature Granulocytes NOT REPORTED 0 % [facility] Interpretation and review of laboratory results Abnormal [facility] Lymphocytes/100 WBC (Bld) 13 % Low 15 - 40 % [facility] MCH (RBC) [Entitic mass] 26.4 pg 26 - 34 pg [facility] MCHC (RBC) [Mass/Vol] 33.8 g/dL 31 - 3 7 g/dL [facility] MCV (RBC) [Entitic vol] 78.2 fL Low 80 - 100 fL [facility] Monocytes/100 WBC (Bld) 10 % High 4 - 8 % [facility] NRBC Automated NOT REPORTED per 100 WBC [facility] Platelet distribution width (Bld) [Ratio] 14.4 % 12.1 - 15.2 % [facility] Platelet Estimate NOT REPORTED [facility] Platelet mean volume (Bld) [Entitic vol] NOT REPORTED 6.0 - 12.0 fL [facility] Platelets (Bld) [#/Vol] 259 10*3/uL [facility] RBC (Bld) [#/Vol] 4.43 10*6/uL 4.0 - 5.2 m/uL [facility] RBC (Bld) [#/Vol] NOT REPORTED [facility] Segmented neutrophils/100 WBC (Bld) 75 % 47 - 75 % [facility] Segs Absolute 3.60 [facility] h WBC (Bld) [#/Vol] 4.8 10*3/uL [facility] WBC (Bld) [#/Vol] NOT REPORTED [facility] COVID-19, Rapidon 03-23-2021 Interpretation and review of laboratory results Abnormal [facility] SARS-CoV-2 (COVID-19) RNA KALPESH+probe Ql (Unsp spec) Detected Abnormal Not Detected [facility] Comment on above: Rapid NAAT: The specimen [...] this assay. Fact sheet for Healthcare Providers: https://www.fda.gov/media/117203/download Fact sheet for Patients: https://www.fda.gov/media/058325/download Methodology: Isothermal Nucleic Acid Amplification Results reported to the appropriate Health Department Specimen Description .NASOPHARYNGEAL SWAB [facility] No Panel Informationon 03-23 Direct Exam Negative [facility] Rapid influenza A/B antigens on 03-23-2021 Special Requests NOT REPORTED [facility] Be my eyes Specimen Description .NASOPHARYNGEAL SWAB [facility] COVID-19, RapidOrdered By: Shayy Springer on 12-27-2020 SARS-CoV-2 (COVID-19) RNA KALPESH+probe Ql (Unsp spec) Not detected Not Detected [employer] Work Phone: Comment on above: Rapid NAAT: [...] management decisions. Fact sheet for Healthcare Providers: https://www.fda.gov/media/083315/download Fact sheet for Patients: https://www.fda.gov/media/895979/download Methodology: Isothermal Nucleic Acid Amplification Specimen Description .NASOPHARYNGEAL SWAB [employer] Phone: [employer] Phone: Strep Screen Group A ThroatO rdered By: Wayne Springer on 12-27-2020 S. pyogenes Ag IA Ql (Unsp spec) Rapid Strep A negative. A negative Rapid Group A Strep Screen result does not rule out the possibility of Group A Streptococci in the specimen. A Group A Strep DNA test is available upon request. [employer] Phone: Special Requests NOT REPORTED [employer] Phone: Specimen Description .THROAT [employer] Phone: [employer] Phone: XR SHOULDER RIGHT (MIN 2 VIE WS)Ordered By: Allegra Quinn on 11-20-2020 No acute fracture or traumatic malalignment. [employer] Phone: EXAMINATION: XR SHOULDER RIGHT (MIN 2 VIEWS), , 11/20/2020 9:30 PM EDT INDICATION: Reason for exam:->shoulder pain HISTORY: Ordering Provider Reason for Exam: Technologist Note: Additional: COMPARISON: None. TECHNIQUE: Right shoulder x-ray: 3 view(s). FINDINGS: No acute fracture. Glenohumeral and acromioclavicular joints are anatomically aligned. Joint spaces are preserved. Soft tissues are unremarkable. [employer] Phone: Ward, [facility] Incoming Radiant Results From [employer] - 11/20/2020 9:55 PM EDT EXAMINATION: XR [...] IMPRESSION: No acute fracture or traumatic malalignment. [employer] Work Phone: [employer] Work Phone: COVID-19, MOLECULARon 2020 SARS-CoV-2 (COVID-19) RNA KALPESH+probe Ql (Unsp spec) Not detected Normal Not Detected [facility] Comment on above: Order Comment: : [...] at the following links: For Healthcare Providers: https://www.fda.gov/media/357218/download For Patients: https://www.fda.gov/media/810631/download Performed By: #### L [id number] #### [facility] [address] [place] [address] Joe Rider M.D. [id number] HbA1c (Bld) [Mass fraction]O rdered By: Zelda Bautista on 07-09-2020 Interpretation and review of laboratory results Normal [facility] POC Hemoglobin [id number] By : Zelda Bautista on 07-09-2020 HbA1c (Bld) [Mass fraction] 5.2 % 4.0 - 6.0 % [facility] HbA1c (Bld) [Mass fraction]O rdered By: Lelo Gallegos on 06-09-2020 Interpretation and review of laboratory results Normal [facility] POC Hemoglobin [id number] By : Lelo Gallegos on 06-09-2020 HbA1c (Bld) [Mass fraction] 5.6 % 4.0 - 6.0 % [facility] CBC Auto Differentialon 01-2 Basophils (Bld) [#/Vol] 0.00 10*3/uL [place], [place] Basophils/100 WBC (Bld) 0 % 0 - 2 % [place] Differential Type YES [place], [place] Eosinophils (Bld) [#/Vol] 0.10 10*3/uL [place] Eosinophils/100 WBC (Bld) 1 % 0 - 5 % [place] Erythrocyte distribution width (RBC) [Ratio] 14.2 % 12.1 - 15.2 % [place] Hematocrit (Bld) [Volume fraction] 36.1 % 36 - 46 % [place] Hemoglobin (Bld) [Mass/Vol] 12.5 g/dL 12 - 16 g/dL [place] Interpretation and review of laboratory results Abnormal [place] Lymphocytes (Bld) [#/Vol] 2.00 10*3/uL [place] Lymphocytes/100 WBC (Bld) 14 % Low 15 - 40 % [place] MCH (RBC) [Entitic mass] 30.6 pg 26 - 34 pg [place] MCHC (RBC) [Mass/Vol] 34.5 g/dL 31 - 3 7 g/dL [place] MCV (RBC) [Entitic vol] 88.5 fL 80 - 100 fL [place] Monocytes (Bld) [#/Vol] 0.80 10*3/uL [place] Monocytes/100 WBC (Bld) 6 % 4 - 8 % [place] Platelet mean volume (Bld) [Entitic vol] NOT REPORTED 6 - 12 fL [place] Platelets (Bld) [#/Vol] 300 10*3/uL [place] Platelets (Bld) [#/Vol] NOT REPORTED [place] RBC (Bld) [#/Vol] 4.08 10*6/uL 4 - 5.2 m/uL [place] RBC morphology finding Nom (Bld) NOT REPORTED [place] Segmented neutrophils/100 WBC (Bld) 79 % High 47 - 75 % [place] Segs Absolute 10.70 [place] WBC (Bld) [#/Vol] 13.6 10*3/uL [place] WBC (Bld) [#/Vol] NOT REPORTED per 100 WBC [place] WBC Morphology NOT REPORTED [place] COVID-19, PCRon 03-26-2020 SARS-CoV-2, Rapid Not Detected Not Detected [place] Comment on above: Rapid NAAT: The [...] management decisions. Fact sheet for Healthcare Providers: https://www.fda.gov/media/550294/download Fact sheet for Patients: https://www.fda.gov/media/316410/download Methodology: Isothermal Nucleic Acid Amplification Source .THROAT [place] Comprehensive Metabolic Pane l w/ Reflex to MGon 03-26-2020 Albumin [Mass/Vol] 3.3 g/dL Low 3.5 - 5.2 g/dL [place] Albumin/Globulin [Mass ratio] NOT REPORTED [place] ALP [Catalytic activity/Vol] 57 U/L 35 - 104 U/L [place] ALT [Catalytic activity/Vol] U/L Low 5 - 33 U/L [place] Anion gap [Moles/Vol] 11 mmol/L 9 - 17 mmol/L [place] AST [Catalytic activity/Vol] 9 U/L <32 [place] Bilirubin Ql (U) 0.10 mg/dL Low 0.3 - 1.2 mg/dL [place] Bun/Cre Ratio 21 High [place] Calcium [Mass/Vol] 10.2 mg/dL 8.6 - 10. 4 mg/dL [place] Chloride [Moles/Vol] 104 mmol/L 98 - 10 7 mmol/L [place] CO2 [Moles/Vol] 21 mmol/L 20 - 31 mmol/L [place] Creatinine [Mass/Vol] 0.42 mg/dL Low 0.5 - 0.9 mg/dL [place] GFR >60 >60 mL/min [place] GFR Non- >60 >60 mL/min [place] GFR/1.73 sq M predicted among non-blacks MDRD (S/P/Bld) [Vol rate/Area] NOT REPORTED [place] GFR/1.73 sq M predicted among non-blacks MDRD (S/P/Bld) [Vol rate/Area] [place], [place] Comment on above: Average GFR for 30-3 9 years old: 107 mL/min/1.73sq m Chronic Kidney Disease: <60 mL/min/1.73sq m Kidney failure: <15 mL/min/1.73sq m eGFR calculated using average adult body mass. Additional eGFR calculator available at: http://www.[employer]/multiple_crcl_2012.htm Glucose [Mass/Vol] 100 mg/dL High 70 - 99 mg/dL [place], [place] Interpretation and review of laboratory results Abnormal [place] Potassium [Moles/Vol] 3.8 mmol/L 3.7 - 5.3 mmol/L [place] Protein [Mass/Vol] 6.5 g/dL 6.4 - 8.3 g/dL [place] Sodium [Moles/Vol] 136 mmol/L 135 - 144 mmol/L [place] Urea nitrogen [Mass/Vol] 9 mg/dL 6 - 20 mg/dL [place] Otheron 03-26-2020 SARS-CoV-2 [place], [place] Immature granulocytes (Bld) [#/Vol] NOT REPORTED [place] Urinalysis, reflex to micros copicon 03-26-2020 Bilirubin U[facility] [place] [place] Color, UA YELLOW YELLOW [place], [place] Glucose, Ur Negative NEGATIVE [place] Ketones Ql (U) Negative NEGATIVE [place] Leukocyte esterase Test strip Ql (U) Negative NEGATIVE [place] Nitrite, Urine Negative NEGATIVE [place] pH, UA 7.0 [place] Protein (U) [Mass/Vol] Negative NEGATIVE [place] Specific [place], UA 1.010 [place] Turbidity UA CLEAR CLEAR [place] Urinalysis Comments [place] Urine Hgb Negative NEGATIVE [place] Urobilinogen, Urine Normal Normal [place] Wet Prep, Genitalon 11-20-19 Direct Exam MODERATE EPITHELIAL CELLS Abnormal [place] Direct Exam FEW TRICHOMONAS SEEN Abnormal [place] Direct Exam MODERATE BACTERIA Abnormal [place] Direct Exam Few epithelials coated with bacteria resembling clue cells. Abnormal [place] Direct Exam NO FUNGAL ELEMENTS SEEN [place] Interpretation and review of laboratory results Abnormal [place] Special Requests NOT REPORTED [place] Specimen Description .VAGINAL SPECIMEN [place] WBC (Bld) [#/Vol] FEW WBC SEEN Abnormal [place] Basic Metabolic Panelon 06-05 Anion gap [Moles/Vol] 15 mmol/L 10 - 2 0 mmol/L [facility] Calcium [Mass/Vol] 8.6 mg/dL 8.4 - 10. 2 mg/dL [facility] Chloride [Moles/Vol] 102 mmol/L 98 - 10 8 mmol/L [facility] Creatinine [Mass/Vol] 0.36 mg/dL Low 0.40 - 1.10 [facility] GFR/1.73 sq M predicted among non-blacks MDRD (S/P/Bld) [Vol rate/Area] The eGFR should be used for monitoring renal function only and not for medication dosing. [facility] GFR/1.73 sq M.predicted CKD-EPI (S/P/Bld) [Vol rate/Area] 146 >=60 mL/min/1.73 m2 [facility] Glucose [Mass/Vol] 102 mg/dL High 65 - 99 mg/dL [facility] HCO3 [Moles/Vol] 25 mmol/L 21 - 32 mmol/L [facility] Interpretation and review of laboratory results Abnormal [facility] Potassium [Moles/Vol] 4.1 mmol/L 3.5 - 5.1 mmol/L [facility] Sodium [Moles/Vol] 138 mmol/L 135 - 145 mmol/L [facility] Urea nitrogen [Mass/Vol] 5 mg/dL Low 8 - 25 mg/dL [facility] Urea nitrogen/Creatinine [Mass ratio] 13.9 mg/mg [facility] Hepatic Function Panelon Albumin [Mass/Vol] 3.3 g/dL 3.2 - 5.2 g/dL [facility] ALP [Catalytic activity/Vol] 253 U/L High 40 - 140 U/L [facility] ALT [Catalytic activity/Vol] 686 U/L High 0 - 40 U/L [facility] AST [Catalytic activity/Vol] 349 U/L High 0 - 45 U/L [facility] Bilirubin [Mass/Vol] 6.0 mg/dL High 0 - 1.3 mg/dL [facility] Bilirubin.conjugated [Mass/Vol] 5.1 mg/dL High 0 - 0.4 mg/dL [facility] Interpretation and review of laboratory results Abnormal [facility] Protein [Mass/Vol] 6.8 g/dL 6 - 8 g/dL [facility] Bilirubin, Directon 06-16-19 20 Bilirubin.conjugated [Mass/Vol] 5.4 mg/dL High 0 - 0.4 mg/dL [facility] Interpretation and review of laboratory results Abnormal [facility] CBCon 06-16-2019 Erythrocyte distribution width (RBC) [Entitic vol] 15.1 % High 11.6 - 14.8 % [facility] Hematocrit (Bld) [Volume fraction] 38.5 % 36 - 46 % [facility] Hemoglobin (Bld) [Mass/Vol] 12.9 g/dL 12 - 16 g/dL [facility] Interpretation and review of laboratory results Abnormal [facility] MCH (RBC) [Entitic mass] 29.1 pg 26 - 34 pg [facility] MCHC (RBC) [Mass/Vol] 33.5 g/dL 31 - 3 7 g/dL [facility] MCV (RBC) [Entitic vol] 86.9 fL 80 - 100 fL [facility] Nucleated RBC (Bld) [#/Vol] 0.00 10*3/uL [facility] Nucleated RBC/100 WBC (Bld) [Ratio] 0.0 % [facility] Platelet mean volume (Bld) [Entitic vol] 11.3 fL 9 - 15.5 fL [facility] Platelets (Bld) [#/Vol] 185 10*3/uL [facility] RBC (Bld) [#/Vol] 4.43 10*6/uL [facility] WBC (Bld) [#/Vol] 6.48 10*3/uL [facility] Comprehensive Metabolic Pane cayden 06-16-2019 Albumin [Mass/Vol] 3.3 g/dL 3.2 - 5.2 g/dL [facility] ALP [Catalytic activity/Vol] 217 U/L High 40 - 140 U/L [facility] ALT [Catalytic activity/Vol] 825 U/L High 0 - 40 U/L [facility] Anion gap [Moles/Vol] 14 mmol/L 10 - 2 0 mmol/L [facility] AST [Catalytic activity/Vol] 544 U/L High 0 - 45 U/L [facility] Bilirubin [Mass/Vol] 5.9 mg/dL High 0 - 1.3 mg/dL [facility] Calcium [Mass/Vol] 8.4 mg/dL 8.4 - 10. 2 mg/dL [facility] Chloride [Moles/Vol] 103 mmol/L 98 - 10 8 mmol/L [facility] Creatinine [Mass/Vol] 0.32 mg/dL Low 0.40 - 1.10 [facility] GFR/1.73 sq M predicted among non-blacks MDRD (S/P/Bld) [Vol rate/Area] The eGFR should be used for monitoring renal function only and not for medication dosing. [facility] GFR/1.73 sq M.predicted CKD-EPI (S/P/Bld) [Vol rate/Area] 152 >=60 mL/min/1.73 m2 [facility] Glucose [Mass/Vol] 92 mg/dL 65 - 99 mg/dL [facility] HCO3 [Moles/Vol] 26 mmol/L 21 - 32 mmol/L [facility] Interpretation and review of laboratory results Abnormal [facility] Potassium [Moles/Vol] 4.3 mmol/L 3.5 - 5.1 mmol/L [facility] Protein [Mass/Vol] 6.2 g/dL 6 - 8 g/dL [facility]th Sodium [Moles/Vol] 139 mmol/L 135 - 145 mmol/L [facility] Urea nitrogen [Mass/Vol] 4 mg/dL Low 8 - 25 mg/dL [facility] Urea nitrogen/Creatinine [Mass ratio] 12.5 mg/mg [facility] Bilirubin, Directon 06-15-19 20 Bilirubin.conjugated [Mass/Vol] 4.7 mg/dL High 0 - 0.4 mg/dL [facility] Interpretation and review of laboratory results Abnormal [facility] CBCon 06-15-2019 Erythrocyte distribution width (RBC) [Entitic vol] 14.8 % 11.6 - 14.8 % [facility] Hematocrit (Bld) [Volume fraction] 38.5 % 36 - 46 % [facility] Hemoglobin (Bld) [Mass/Vol] 12.6 g/dL 12 - 16 g/dL [facility] MCH (RBC) [Entitic mass] 29.0 pg 26 - 34 pg [facility] MCHC (RBC) [Mass/Vol] 32.7 g/dL 31 - 3 7 g/dL [facility] MCV (RBC) [Entitic vol] 88.5 fL 80 - 100 fL [facility] Nucleated RBC (Bld) [#/Vol] 0.00 10*3/uL [facility] Nucleated RBC/100 WBC (Bld) [Ratio] 0.0 % [facility] Platelet mean volume (Bld) [Entitic vol] 11.0 fL 9 - 15.5 fL [facility] Platelets (Bld) [#/Vol] 155 10*3/uL [facility] RBC (Bld) [#/Vol] 4.35 10*6/uL [facility] WBC (Bld) [#/Vol] 5.74 10*3/uL [facility] Comprehensive Metabolic Pane cayden 06-15-2019 Albumin [Mass/Vol] 3.2 g/dL 3.2 - 5.2 g/dL [facility] ALP [Catalytic activity/Vol] 193 U/L High 40 - 140 U/L [facility] ALT [Catalytic activity/Vol] 888 U/L High 0 - 40 U/L [facility] Anion gap [Moles/Vol] 15 mmol/L 10 - 2 0 mmol/L [facility] AST [Catalytic activity/Vol] 667 U/L High 0 - 45 U/L [facility] Bilirubin [Mass/Vol] 5.2 mg/dL High 0 - 1.3 mg/dL [facility] Calcium [Mass/Vol] 8.2 mg/dL Low 8.4 - 10. 2 mg/dL [facility] Chloride [Moles/Vol] 103 mmol/L 98 - 10 8 mmol/L [facility] Creatinine [Mass/Vol] 0.36 mg/dL Low 0.40 - 1.10 [facility] GFR/1.73 sq M predicted among non-blacks MDRD (S/P/Bld) [Vol rate/Area] The eGFR should be used for monitoring renal function only and not for medication dosing. [facility] GFR/1.73 sq M.predicted CKD-EPI (S/P/Bld) [Vol rate/Area] 146 >=60 mL/min/1.73 m2 [facility] Glucose [Mass/Vol] 122 mg/dL High 65 - 99 mg/dL [facility] HCO3 [Moles/Vol] 22 mmol/L 21 - 32 mmol/L [facility] Interpretation and review of laboratory results Abnormal [facility] Potassium [Moles/Vol] 3.8 mmol/L 3.5 - 5.1 mmol/L [facility] Protein [Mass/Vol] 5.8 g/dL Low 6 - 8 g/dL [facility]th Sodium [Moles/Vol] 136 mmol/L 135 - 145 mmol/L [facility] Urea nitrogen [Mass/Vol] 5 mg/dL Low 8 - 25 mg/dL [facility] Urea nitrogen/Creatinine [Mass ratio] 13.9 mg/mg [facility] NM HEPATOBILIARY WO EJECTION FRACTIONon 06-15-2019 [...] tree, and small bowel are not visualized. [facility] Opacified liver with no visualization of [...] regarding the presence or absence of cholecystitis. [employer] Workstation ID: [id number] [facility] Interface, Rad In Fuji Speechq - [...] regarding the presence or absence of cholecystitis. [employer] Workstation ID: [id number] [facility] APTTon 06-14-2019 aPTT Coag (Bld) [Time] 31.1 s [facility] [place], [place] Comment on above: PTT Therapeutic Range: 61.7-88.4 Therapeutic range corresponds to plasma heparin levels of 0.3-0.7 U/mL. Acetaminophen Levelon 2019 Acetaminophen [Mass/Vol] 9.1 [facility] Interpretation and review of laboratory results Normal [facility] Bilirubin, Directon 06-14-19 20 Bilirubin.conjugated [Mass/Vol] 4.3 mg/dL High 0 - 0.4 mg/dL [facility] Interpretation and review of laboratory results Abnormal [facility] CBC WITH AUTO DIFFERENTIALon 06-14-2019 Erythrocyte distribution width (RBC) [Entitic vol] 14.5 % 11.6 - 14.8 % [facility] Hematocrit (Bld) [Volume fraction] 34.6 % Low 36 - 46 % [facility] Hemoglobin (Bld) [Mass/Vol] 11.6 g/dL Low 12 - 16 g/dL [facility] Interpretation and review of laboratory results Abnormal [facility] MCH (RBC) [Entitic mass] 29.7 pg 26 - 34 pg [facility] MCHC (RBC) [Mass/Vol] 33.5 g/dL 31 - 3 7 g/dL [facility] MCV (RBC) [Entitic vol] 88.5 fL 80 - 100 fL [facility] Nucleated RBC (Bld) [#/Vol] 0.00 10*3/uL [facility] Nucleated RBC/100 WBC (Bld) [Ratio] 0.0 % [facility] Platelet mean volume (Bld) [Entitic vol] 10.8 fL 9 - 15.5 fL [facility] Platelets (Bld) [#/Vol] 172 10*3/uL [facility] RBC (Bld) [#/Vol] 3.91 10*6/uL Low [facility] WBC (Bld) [#/Vol] 7.28 10*3/uL [facility] CT ABDOMEN PELVIS W IV CONTR AST Additional Contrast? Noneon 06-14-2019 [place], [place] Incoming Radiant Results From [employer] - 06/14/2019 12:27 AM EDT EXAMINATION: CT [...] liver function panel and consider ultrasound imaging. [place] Pericholecystic fluid versus gallbladder wall thickening and additional periportal edema. There are no visualized stones in the gallbladder gallbladder and/or hepatic pathology are suspected. Correlate with liver function panel and consider ultrasound imaging. [place] EXAMINATION: CT ABDOMEN PELVIS W IV [...] auto-finalized and does not contain a result. [facility] Comprehensive Metabolic Pane cayden 06-14-2019 Albumin [Mass/Vol] 3.0 g/dL Low 3.2 - 5.2 g/dL [facility] ALP [Catalytic activity/Vol] 183 U/L High 40 - 140 U/L [facility] ALT [Catalytic activity/Vol] 808 U/L High 0 - 40 U/L [facility] Anion gap [Moles/Vol] 16 mmol/L 10 - 2 0 mmol/L [facility] AST [Catalytic activity/Vol] 592 U/L High 0 - 45 U/L [facility] Bilirubin [Mass/Vol] 4.9 mg/dL High 0 - 1.3 mg/dL [facility] Calcium [Mass/Vol] 8.4 mg/dL 8.4 - 10. 2 mg/dL [facility] Chloride [Moles/Vol] 104 mmol/L 98 - 10 8 mmol/L [facility] Creatinine [Mass/Vol] 0.43 mg/dL 0.40 - 1.10 [facility] GFR/1.73 sq M predicted among non-blacks MDRD (S/P/Bld) [Vol rate/Area] The eGFR should be used for monitoring renal function only and not for medication dosing. [facility] GFR/1.73 sq M.predicted CKD-EPI (S/P/Bld) [Vol rate/Area] 138 >=60 mL/min/1.73 m2 [facility] Glucose [Mass/Vol] 79 mg/dL 65 - 99 mg/dL [facility] HCO3 [Moles/Vol] 21 mmol/L 21 - 32 mmol/L [facility] Interpretation and review of laboratory results Abnormal [facility] Potassium [Moles/Vol] 3.8 mmol/L 3.5 - 5.1 mmol/L [facility] Protein [Mass/Vol] 5.7 g/dL Low 6 - 8 g/dL [facility] Sodium [Moles/Vol] 137 mmol/L 135 - 145 mmol/L [facility] Urea nitrogen [Mass/Vol] 9 mg/dL 8 - 25 mg/dL [facility] Urea nitrogen/Creatinine [Mass ratio] 20.9 mg/mg High [facility] DRUGS OF ABUSE SCREEN, URINE on 06-14-2019 Amphetamines Ql (U) None Detected None Detected [facility] Comment on above: Urine Amphetamine Cu toff: < 1000 ng/mL = None Detected Barbiturates Screen Ql (U) None Detected None Detected [facility] Comment on above: Urine Barbiturates C utoff: < 200 ng/mL = None Detected Benzodiazepines Ql (U) None Detected None Detected [facility] Comment on above: Urine Benzodiazepine Cutoff: < 300 ng/mL = None Detected Cannabinoids Screen Ql (U) None Detected None Detected [facility] Comment on above: Urine Cannabinoids C utoff: < 50 ng/mL = None Detected Cocaine Ql (U) Positive Abnormal None Detected [facility] Comment on above: Urine Cocaine Cutoff : < 300 ng/mL = None Detected Interpretation and review of laboratory results Abnormal [facility] Methadone Screen Ql (U) None Detected Non e Detected [facility] Comment on above: Urine Methadone Cuto ff: < 300 ng/mL = None Detected Opiates Screen Ql (U) None Detected None Detected [facility] Comment on above: Urine Opiates Cutoff : < 300 ng/mL = None Detected Oxycodone Ql (U) None Detected None Detected [facility] Comment on above: Urine Oxycodone Cuto ff: < 100 ng/mL = None Detected Screen results should be used for treatment purposes only. Specimen will be kept for 2 weeks, if the sample is adequate. Confirmation testing can be initiated by calling the lab within 2 weeks. [facility] HEPATITIS PANEL, ACUTEon HAV IgM Ql (S) Negative Negative [facility] HBV core IgM Ql (S) Negative Negative [facility] HBV surface Ag Ql (S) Negative Negative [facility] HCV Ab Ql (S) Positive Abnormal Negative [facility] Comment on above: A positive antibody test requires additional follow-up testing, Hepatitis C Virus Quantitation, to determine if a person is currently infected with Hepatitis C. Interpretation and review of laboratory results Abnormal [facility] Test performed using Constantin DEVIKA immunoassay system [facility] Lactic Acid, Plasmaon 2019 Interpretation and review of laboratory results Normal [facility] Lactate [Moles/Vol] 0.8 mmol/L 0.6 - 2 mmol/L [facility] MORPHOLOGYon 06-14-2019 Platelets LM Ql (Bld) Normal Normal [facility] RBC morphology finding Nom (Bld) Normal [facility] MRCPon 06-14-2019 EXAMINATION: MRCP 03/15/2024 HISTORY: [...] Axial T1-weighted images were obtained in- and [id number]. Axial diffusion-weighted imaging was also performed. FINDINGS: The liver overall appears enlarged with the right hepatic lobe measuring 22.6 cm aextvlbm-ik-uaxtyyj r. The spleen measures 14.6 cm jvntcohc-iw-fmocryz r and is also mildly enlarged. There [...] the right kidney. Bowel pattern is nonobstructive. [facility] 1. Re-demonstration of diffuse periportal edema as well as significant circumferential gallbladder wall edema similar to that seen on prior CT study. 2. Mild hepatosplenomegaly. 3. No obvious gallstones. Negative for biliary or pancreatic ductal dilatation. Negative for choledocholithiasis . 4. Trace volume of abdominal ascites. [employer] Workstation ID: [id number] [facility] Interface, Rad In [employer] Speechq - 06/14/2019 4:45 PM EDT EXAMINATION: [...] Axial T1-weighted images were obtained in- and [id number]. Axial diffusion-weighted imaging was also performed. FINDINGS: The liver overall appears enlarged with the right hepatic lobe measuring 22.6 cm pzgojlsq-ey-vembeuk r. The spleen measures 14.6 cm eprdnyya-iq-xoxbgfd r and is also mildly enlarged. There [...] . 4. Trace volume of abdominal ascites. [employer] Workstation ID: [id number] [facility] Manual Differentialon 2019 Basophils (Bld) [#/Vol] 0.00 10*3/uL [facility] Basophils/100 WBC (Bld) 0.0 % [facility] Eosinophils (Bld) [#/Vol] 0.00 10*3/uL [facility] Eosinophils/100 WBC (Bld) 0.0 % [facility] Lymphocytes (Bld) [#/Vol] 3.28 10*3/uL [facility] Lymphocytes/100 WBC (Bld) 37.0 % [facility] Monocytes (Bld) [#/Vol] 0.44 10*3/uL [facility] Monocytes/100 WBC (Bld) 6.0 % [facility] Neutrophils (Bld) [#/Vol] 3.57 10*3/uL [facility] Neutrophils/100 WBC (Bld) 49.0 % [facility] Variant lymphocytes/100 WBC (Bld) 8.0 % [facility] PT/INRon 06-14-2019 INR Coag (PPP) [Relative time] 1.3 {INR} [facility] Interpretation and review of laboratory results Abnormal [facility] PT Coag (PPP) [Time] 15.5 s [facility] During the induction phase of oral anticoagulation, the INR may not reflect the anticoagulation status of the patient. Therapeutic ranges for INR's are: Most clinical situations: INR 2.0-3.0 Mechanical Prosthetic Valve: INR 2.5-3.5 Critical: INR >5.0 [facility] Protime-INRon 06-14-2019 INR Coag (PPP) [Relative time] 1.2 {INR} [place] Comment on above: * THERAPY INDICATIONS * REFERENCE RANGES Pts not on anti-coagulants 1.0 - 1.5 INR Low risk pts on anti-coagulants 2.0 - 3.0 INR High risk pts on anti-coagulants 2.5 - 3.5 INR Prevention of atrial thrombo-embolism 3.0 - 4.5 INR Interpretation and review of laboratory results Abnormal [place] PT Coag (PPP) [Time] 11.7 s [place] Salicylate Levelon 0 Interpretation and review of laboratory results Abnormal [facility] Salicylates [Mass/Vol] mg/dL Low 10 - 20 mg/dL [facility] URINALYSISon 06-14-2019 Bacteria Auto Ql (U) Rare Abnormal None Se en /hpf [facility] Bilirubin Ql (U) Positive Abnormal Negative [facility] th Comment on above: False positive urine bilirubins can occur in the setting of a large amount of hemoglobin and secondary to medications including anti-inflammatory agents, rifampin, and pyridium. Clarity Refractometry automated (U) Clear Clear [facility] Color (U) Erica Abnormal Colorless, Yellow [facility] Epithelial cells.squamous Auto (Urine sed) [#/Area] 4 [facility] Glucose Auto test strip (U) [Mass/Vol] Negative Negative mg/dL [facility] Hemoglobin Auto test strip Ql (U) Negative Negative [facility] Interpretation and review of laboratory results Abnormal [facility] Ketones (U) [Mass/Vol] >=80 Abnormal Negat krystal mg/dL [facility] Leukocyte esterase Auto test strip Ql (U) Negative Negative [facility] Mucus Auto (Urine sed) [#/Area] Rare None Seen, Rare /lpf [facility] Nitrite Auto test strip Ql (U) Negative Negative [facility] pH (U) 6.0 [pH] [facility] Protein (U) [Mass/Vol] 30 Abnormal Negat krystal mg/dL [facility] Comment on above: False positive resul ts may occur in urines with large amounts of hemoglobin, pH greater than 8.0, contrast medium, or disinfectants including ammonium compounds. RBC Auto (Urine sed) [#/Area] 2 [facility] Specific gravity (U) [Rel density] 1.028 High [facility] Urobilinogen (U) [Mass/Vol] >=4.0 Abnormal <2.0 mg/dL [facility] WBC Auto (Urine sed) [#/Area] 2 [facility] Microscopic examination is performed on all urinalysis samples and only positive findings are reported. The test for blood on the chemical analytic portion of urinalysis may also be positive due to hemoglobinuria and myoglobinuria and if red blood cells are present they are quantified by microscopic examination. [facility] US ABDOMEN LIMITED STUDYon 0 06-14-2019 [...] liver likely small hemangioma. Workstation ID: [id number] [employer] EXAMINATION: US ABDOMEN LIMITED STUDY HISTORY: RUQ [...] measures 10.7 cm in length. No hydronephrosis. [facility] 1. Contracted gallbladder limits evaluation. No cholelithiasis identified. Nonspecific edematous gallbladder wall thickening and reported positive sonographic Short's sign, cannot exclude acalculus cholecystitis. No biliary ductal dilatation. 2. 1.3 cm echogenic lesion left lobe of the liver likely small hemangioma. Workstation ID: [id number] [facility] Amylaseon 06-13-2019 Amylase [Catalytic activity/Vol] 22 U/L Low 28 - 100 U/L [place] CBC Auto Differentialon Basophils (Bld) [#/Vol] 0.00 10*3/uL [place] Basophils/100 WBC (Bld) 1 % 0 - 2 % [place] Differential Type YES [place] Eosinophils (Bld) [#/Vol] 0.00 10*3/uL [place] Eosinophils/100 WBC (Bld) 0 % 0 - 5 % [place] Erythrocyte distribution width (RBC) [Ratio] 14.9 % 12.1 - 15.2 % [place] Hematocrit (Bld) [Volume fraction] 43.3 % 36 - 46 % [place] Hemoglobin (Bld) [Mass/Vol] 14.3 g/dL 12 - 16 g/dL [place] Lymphocytes (Bld) [#/Vol] 2.50 10*3/uL [place] Lymphocytes/100 WBC (Bld) 30 % 15 - 40 % [place] MCH (RBC) [Entitic mass] 28.8 pg 26 - 34 pg [place] MCHC (RBC) [Mass/Vol] 33.1 g/dL 31 - 3 7 g/dL [place] MCV (RBC) [Entitic vol] 87.2 fL 80 - 100 fL [place] Monocytes (Bld) [#/Vol] 0.70 10*3/uL [place] Monocytes/100 WBC (Bld) 8 % 4 - 8 % [place] Platelet mean volume (Bld) [Entitic vol] NOT REPORTED 6 - 12 fL [place] Platelets (Bld) [#/Vol] 203 10*3/uL [place] Platelets (Bld) [#/Vol] NOT REPORTED [place] RBC (Bld) [#/Vol] 4.97 10*6/uL 4 - 5.2 m/uL [place] RBC morphology finding Nom (Bld) NOT REPORTED [place] Segmented neutrophils/100 WBC (Bld) 61 % 47 - 75 % [place] Segs Absolute 5.20 [place] WBC (Bld) [#/Vol] 8.4 10*3/uL [place] WBC (Bld) [#/Vol] NOT REPORTED per 100 WBC [place] WBC Morphology NOT REPORTED [place] Comprehensive Metabolic Pane l w/ Reflex to MGon 06-13-2019 Albumin [Mass/Vol] 4.1 g/dL 3.5 - 5.2 g/dL [place] Albumin/Globulin [Mass ratio] NOT REPORTED [place] ALP [Catalytic activity/Vol] 255 U/L High 35 - 104 U/L [place] ALT [Catalytic activity/Vol] 1116 U/L High 5 - 33 U/L [place] Anion gap [Moles/Vol] 17 mmol/L 9 - 17 mmol/L [place] AST [Catalytic activity/Vol] 665 U/L High <32 [place] Bilirubin Ql (U) 6.52 mg/dL High 0.3 - 1.2 mg/dL [place] Bun/Cre Ratio 17 [place] Calcium [Mass/Vol] 10.1 mg/dL 8.6 - 10. 4 mg/dL [place] Chloride [Moles/Vol] 95 mmol/L Low 98 - 10 7 mmol/L [place] CO2 [Moles/Vol] 24 mmol/L 20 - 31 mmol/L [place] Creatinine [Mass/Vol] 0.82 mg/dL 0.5 - 0.9 mg/dL [place] GFR >60 >60 mL/min [place] GFR Non- >60 >60 mL/min [place] GFR/1.73 sq M predicted among non-blacks MDRD (S/P/Bld) [Vol rate/Area] [place] Comment on above: Average GFR for 20-2 9 years old: 116 mL/min/1.73sq m Chronic Kidney Disease: <60 mL/min/1.73sq m Kidney failure: <15 mL/min/1.73sq m eGFR calculated using average adult body mass. Additional eGFR calculator available at: http://www.[employer]/multiple_crcl_2012.htm GFR/1.73 sq M predicted among non-blacks MDRD (S/P/Bld) [Vol rate/Area] NOT REPORTED [place] Glucose [Mass/Vol] 134 mg/dL High 70 - 99 mg/dL [place] Interpretation and review of laboratory results Abnormal [place] Potassium [Moles/Vol] 3.7 mmol/L 3.7 - 5.3 mmol/L [place] Protein [Mass/Vol] 8.1 g/dL 6.4 - 8.3 g/dL [place] Sodium [Moles/Vol] 136 mmol/L 135 - 144 mmol/L [place] Urea nitrogen [Mass/Vol] 14 mg/dL 6 - 20 mg/dL [place], [place] Drug screen multi urineon Amphetamine Screen, Ur Negative NEGATIVE [place] Comment on above: (Positive cutoff 500 ng/mL) Barbiturate Screen, Ur Negative NEGATIVE [place] Comment on above: (Positive cutoff 200 ng/mL) Benzodiazepine Screen, Urine Negative NEGATIVE [place], [place] Comment on above: (Positive cutoff 150 ng/mL) Buprenorphine Urine NOT REPORTED NEGATIVE [place] Cannabinoid Scrn, Ur Negative NEGATIVE [place] Comment on above: (Positive cutoff 50 ng/mL) Cocaine Metabolite, Urine Positive Abnormal NEGATIVE [place] Comment on above: (Positive cutoff 150 ng/mL) Interpretation and review of laboratory results Abnormal [place] MDMA, Urine NOT REPORTED NEGATIVE [place] Methadone Screen, Urine Negative NEGATIVE [place] Comment on above: (Positive cutoff 200 ng/mL) Methamphetamine, Urine Negative NEGATIVE [place] Comment on above: (Positive cutoff 500 ng/mL) Opiates, Urine Positive Abnormal NEGATIVE [place] Comment on above: (Positive cutoff 100 ng/mL) Oxycodone Screen, Ur Negative NEGATIVE [place] Comment on above: (Positive cutoff 100 ng/mL) Phencyclidine, Urine Negative NEGATIVE [place] Comment on above: (Positive cutoff 25 ng/mL) Propoxyphene, Urine Negative NEGATIVE [place] Comment on above: (Positive cutoff 300 ng/mL) Test Information NOT REPORTED [place] Tricyclic Antidepressants, Urine Negative NEGATIVE [place] Comment on above: (Positive cutoff 300 ng/mL) Drug screen results are to be used for medical purposes only. All positive results are unconfirmed. Testing for employment or legal uses should be sent to a reference laboratory for confirmation. Lactic Acidon 06-13-2019 Lactate [Moles/Vol] 1.2 mmol/L 0.5 - 2. 2 mmol/L [place], [place] Lipaseon 06-13-2019 Lipase [Catalytic activity/Vol] 8 U/L Low 13 - 60 U/L [place] Microscopic Urinalysison Amorphous, UA NOT REPORTED None [place], [place] Bacteria, UA 2+ Abnormal None [place] Casts UA 5 TO 10 HYALINE /LPF [place] Casts UA 2 TO 5 WAXY /LPF [place] Crystals, UA NOT REPORTED None /HPF [place] Epithelial Cells UA LOADED /HPF [place] Interpretation and review of laboratory results Abnormal [place] Mucus, UA 4+ Abnormal None [place] Other Observations UA NOT REPORTED NOT REQ. [place] RBC (U) [#/Vol] 5 TO 10 [place] Renal Epithelial, UA NOT REPORTED 0 /HPF [place] Trichomonas, UA NOT REPORTED None [place], [place] WBC, UA 10 TO 20 0 /HPF [place] Yeast, UA NOT REPORTED None [place] - [place] Otheron 06-13-2019 Interpretation and review of laboratory results Abnormal [place] Immature granulocytes (Bld) [#/Vol] NOT REPORTED 0 % [place] , Urineon 0 Beta HCG ( test) Ql (U) Negative NEGATIVE [place] Urinalysis, reflex to micros copicon 06-13-2019 Bilirubin Urine 3+ Abnormal NEGATIVE [place] Color, UA BROWN Abnormal YELLOW [place], [place] Glucose, Ur Negative NEGATIVE [place] Interpretation and review of laboratory results Abnormal [place] Ketones Ql (U) MODERATE Abnormal NEGATIVE [place] Leukocyte esterase Test strip Ql (U) 1+ Abnormal NEGATIVE [place] Nitrite, Urine Positive Abnormal NEGATIVE [place] pH, UA 5.0 [place] Protein (U) [Mass/Vol] 1+ Abnormal NEGATIVE [place], [place] Specific [place], UA 1.020 [place] Turbidity UA CLEAR CLEAR [place] Urinalysis Comments [place] Urine Hgb TRACE Abnormal NEGATIVE [place] Urobilinogen, Urine 12 mg/dL Abnormal Normal [place] Vital Signs Date Time Vital Sign Value Performing Clinician Facility 05-13-2023 11:27-0500 Body temperature 98.6 [degF] Jonathan [facility] 05-13-2023 11:27-0500 Diastolic blood pressure 78 mm[Hg] Jonathan Martinez [facility] 05-13-2023 11:27-0500 Heart rate 83 /min Jonathan Martinez [facility] 05-13-2023 11:27-0500 Respiratory rate 18 /min Jonathan Martinez [facility] 05-13-2023 11:27-0500 SaO2% (BldA) [Mass fraction] 97 % Jonathan Martinez [facility] 05-13-2023 11:27-0500 Systolic blood pressure 113 mm[Hg] Jonathan Martinez [facility] 05-11-2023 21:49-0500 Body temperature 98.06 [degF] [facility] 05-11-2023 21:49-0500 Diastolic blood pressure 84 mm[Hg] [facility] 05-11-2023 21:49-0500 Heart rate 105 /min [facility] 05-11-2023 21:49-0500 Respiratory rate 17 /min [facility] 05-11-2023 21:49-0500 SaO2% (BldA) [Mass fraction] 97 % [facility] 05-11-2023 21:49-0500 Systolic blood pressure 130 mm[Hg] [facility] 05-10-2023 11:41-0500 Body height 160 cm Chet Berumen DO Work Phone: [facility] [employer] 05-10-2023 11:41-0500 Body mass index (BMI) [Ratio] 44.29 kg/m2 Chet Berumen DO Work Phone: [facility] [employer] 05-10-2023 11:41-0500 Body temperature 97.9 [degF] Chet Berumen DO Work Phone: [facility] [employer] 05-10-2023 11:41-0500 Body weight 113.4 kg Chet Berumen DO Work Phone: [employer] 05-10-2023 11:41-0500 Diastolic blood pressure 76 mm[Hg] Chet Berumen DO Work Phone: [employer] 05-10-2023 11:41-0500 Heart rate 94 /min Chet Berumen DO Work Phone: [facility] [employer] 05-10-2023 11:41-0500 Respiratory rate 18 /min Chet Berumen DO Work Phone: [employer] 05-10-2023 11:41-0500 SaO2% (BldA) [Mass fraction] 96 % Chet Berumen DO Work Phone: [employer] 05-10-2023 11:41-0500 Systolic blood pressure 146 mm[Hg] Chet Berumen DO Work Phone: [employer] 09-04-2022 11:27-0400 Body height 160 cm Erin Brush MD Work Phone: [employer] 09-04-2022 11:27-0400 Body mass index (BMI) [Ratio] 44.99 kg/m2 Erin Brush MD Work Phone: [employer] 09-04-2022 11:27-0400 Body temperature 98.2 [degF] Erin Brush MD Work Phone: [employer] 09-04-2022 11:27-0400 Body weight 115.21 kg Erin Brush MD Work Phone: [employer] 09-04-2022 11:27-0400 Diastolic blood pressure 71 mm[Hg] Erin Brush MD Work Phone: [employer] 09-04-2022 11:27-0400 Heart rate 88 /min Erin Brush MD Work Phone: [employer] 09-04-2022 11:27-0400 Respiratory rate 18 /min Erin Brush MD Work Phone: [employer] 09-04-2022 11:27-0400 SaO2% (BldA) [Mass fraction] 97 % Erin Brush MD Work Phone: [employer] 09-04-2022 11:27-0400 Systolic blood pressure 124 mm[Hg] Erin Brush MD Work Phone: [employer] 06-29-2022 09:49-0400 Diastolic blood pressure 57 mm[Hg] Todd Smart [facility] 06-29-2022 09:49-0400 Heart rate 73 /min Todd Smart [facility] 06-29-2022 09:49-0400 Mean blood pressure 76 mm[Hg] Todd Smart [facility] 06-29-2022 09:49-0400 Respiratory rate 16 /min Todd Smart [facility] 06-29-2022 09:49-0400 Systolic blood pressure 113 mm[Hg] Todd Smart [facility] 05-19-2022 19:28-0400 Body height 160 cm Erin Brush MD Work Phone: [employer] 05-19-2022 19:28-0400 Body mass index (BMI) [Ratio] 45.17 kg/m2 Erin Brush MD Work Phone: [employer] 05-19-2022 19:28-0400 Body weight 115.67 kg Erin Brush MD Work Phone: [employer] 05-19-2022 19:25-0400 Body temperature 98.29 [degF] Erin Brush MD Work Phone: [employer] 05-19-2022 19:25-0400 Diastolic blood pressure 68 mm[Hg] Erin Brush MD Work Phone: [employer] 05-19-2022 19:25-0400 Heart rate 78 /min Erin Brush MD Work Phone: [employer] 05-19-2022 19:25-0400 Respiratory rate 16 /min Erin Brush MD Work Phone: [employer] 05-19-2022 19:25-0400 SaO2% (BldA) [Mass fraction] 98 % Erin Brush MD Work Phone: [employer] 05-19-2022 19:25-0400 Systolic blood pressure 110 mm[Hg] Erin Brush MD Work Phone: [employer] 05-11-2022 19:17-0500 Body height 160 cm Allegra Quinn MD Work Phone: [facility] [employer] 05-11-2022 19:17-0500 Body mass index (BMI) [Ratio] 45.06 kg/m2 Allegra Quinn MD Work Phone: [employer] 05-11-2022 19:17-0500 Body temperature 98.01 [degF] Allegra Quinn MD Work Phone: [employer] 05-11-2022 19:17-0500 Body weight 115.39 kg Allegra Quinn MD Work Phone: [employer] 05-11-2022 19:17-0500 Diastolic blood pressure 91 mm[Hg] Allegra Quinn MD Work Phone: [employer] 05-11-2022 19:17-0500 Heart rate 78 /min Allegra Quinn MD Work Phone: [employer] 05-11-2022 19:17-0500 Respiratory rate 18 /min Allegra Quinn MD Work Phone: [employer] 05-11-2022 19:17-0500 SaO2% (BldA) [Mass fraction] 96 % Allegra Quinn MD Work Phone: [employer] 05-11-2022 19:17-0500 Systolic blood pressure 121 mm[Hg] Allegra Quinn MD Work Phone: [employer] 10-12-2021 18:31-0400 Heart rate 93 /min Rishabh Mancini MD Work Phone: [employer] 10-12-2021 18:31-0400 Respiratory rate 16 /min Rishabh Mancini MD Work Phone: [employer] 10-12-2021 18:31-0400 SaO2% (BldA) [Mass fraction] 97 % Rishabh Mancini MD Work Phone: [employer] 10-12-2021 18:12-0400 Body height 160 cm Rishabh Mancini MD Work Phone: [employer] 10-12-2021 18:12-0400 Body mass index (BMI) [Ratio] 47.12 kg/m2 Rishabh Mancini MD Work Phone: [employer] 10-12-2021 18:12-0400 Body temperature 99.19 [degF] Rishabh Mancini MD Work Phone: [employer] 10-12-2021 18:12-0400 Body weight 120.66 kg Rishabh Mancini MD Work Phone: [employer] 10-12-2021 18:12-0400 Diastolic blood pressure 77 mm[Hg] Rishabh Mancini MD Work Phone: [employer] 10-12-2021 18:12-0400 Systolic blood pressure 126 mm[Hg] Rishabh Mancini MD Work Phone: [facility] [employer] 07-22-2021 10:38-0400 Body height 160 cm Clark Moser MD Work Phone: [employer] 07-22-2021 10:38-0400 Body mass index (BMI) [Ratio] 47.63 kg/m2 Clark Moser MD Work Phone: [employer] 07-22-2021 10:38-0400 Body temperature 97.3 [degF] Clark Moser MD Work Phone: [employer] 07-22-2021 10:38-0400 Body weight 121.97 kg Clark Moser MD Work Phone: [employer] 07-22-2021 10:38-0400 Diastolic blood pressure 88 mm[Hg] Clark Moser MD Work Phone: [facility] 07-22-2021 10:38-0400 Heart rate 104 /min Clark Moser MD Work Phone: [facility] 07-22-2021 10:38-0400 Respiratory rate 18 /min Clark Moser MD Work Phone: [facility] 07-22-2021 10:38-0400 SaO2% (BldA) [Mass fraction] 95 % Clark Moser MD Work Phone: [facility] 07-22-2021 10:38-0400 Systolic blood pressure 126 mm[Hg] Clark Moser MD Work Phone: [facility] 05-15-2021 09:11-0500 Body height [address] [facility] 05-14-2021 10:41-0500 Body height 160 cm Farhat Vang MD Work Phone: [facility] 05-14-2021 10:41-0500 Body mass index (BMI) [Ratio] 44.96 kg/m2 Farhat Vang MD Work Phone: [facility] 05-14-2021 10:41-0500 Body temperature 97.81 [degF] Farhat Vang MD Work Phone: [facility] 05-14-2021 10:41-0500 Body weight 115.12 kg Farhat Vang MD Work Phone: [facility] 05-14-2021 10:41-0500 Diastolic blood pressure 78 mm[Hg] Farhat Vang MD Work Phone: [facility] 05-14-2021 10:41-0500 Heart rate 98 /min Farhat Vang MD Work Phone: [facility] 05-14-2021 10:41-0500 Respiratory rate 18 /min Farhat Vang MD Work Phone: [facility] 05-14-2021 10:41-0500 SaO2% (BldA) [Mass fraction] 97 % Farhat Vang MD Work Phone: [facility] 05-14-2021 10:41-0500 Systolic blood pressure 124 mm[Hg] Farhat Vang MD Work Phone: [facility] 04-16-2021 10:15-0500 Body height 160 cm Farhat Vang MD Work Phone: [facility] 04-16-2021 10:15-0500 Body mass index (BMI) [Ratio] 44.44 kg/m2 Farhat Vang MD Work Phone: [facility] 04-16-2021 10:15-0500 Body temperature 98.01 [degF] Farhat Vang MD Work Phone: [facility] 04-16-2021 10:15-0500 Body weight 113.81 kg Farhat Vang MD Work Phone: [facility] 04-16-2021 10:15-0500 Diastolic blood pressure 78 mm[Hg] Farhat Vang MD Work Phone: [facility] 04-16-2021 10:15-0500 Heart rate 100 /min Farhat Vang MD Work Phone: [facility] 04-16-2021 10:15-0500 Respiratory rate 18 /min Farhat Vang MD Work Phone: [facility] 04-16-2021 10:15-0500 SaO2% (BldA) [Mass fraction] 96 % Farhat Vang MD Work Phone: [facility] 04-16-2021 10:15-0500 Systolic blood pressure 122 mm[Hg] Farhat Vang MD Work Phone: [facility] 03-23-2021 12:40-0500 Body height 160 cm Allegra Quinn MD Work Phone: [facility] 03-23-2021 12:40-0500 Body mass index (BMI) [Ratio] 44.46 kg/m2 Allegra Quinn MD Work Phone: [facility] 03-23-2021 12:40-0500 Body temperature 99.7 [degF] Allegra Quinn MD Work Phone: [employer] 03-23-2021 12:40-0500 Body weight 113.85 kg Allegra Quinn MD Work Phone: [facility] 03-23-2021 12:40-0500 Diastolic blood pressure 74 mm[Hg] Allegra Quinn MD Work Phone: [facility] 03-23-2021 12:40-0500 Heart rate 107 /min Allegra Quinn MD Work Phone: [facility] 03-23-2021 12:40-0500 Respiratory rate 16 /min Allegra Quinn MD Work Phone: [facility] 03-23-2021 12:40-0500 SaO2% (BldA) [Mass fraction] 96 % Allegra Quinn MD Work Phone: [facility] 03-23-2021 12:40-0500 Systolic blood pressure 131 mm[Hg] [facility] 01-15-2021 10:43-0500 Body height 160 cm Holland Ann MD Work Phone: [facility] 01-15-2021 10:43-0500 Body mass index (BMI) [Ratio] 42.55 kg/m2 Holland Ann MD Work Phone: [facility] 01-15-2021 10:43-0500 Body temperature 97.39 [degF] Holland Ann MD Work Phone: [facility] 01-15-2021 10:43-0500 Body weight 108.95 kg Holland Ann MD Work Phone: [facility] 01-15-2021 10:43-0500 Diastolic blood pressure 66 mm[Hg] Holland Ann MD Work Phone: [facility] 01-15-2021 10:43-0500 Heart rate 101 /min Holland Ann MD Work Phone: [facility] 01-15-2021 10:43-0500 SaO2% (BldA) [Mass fraction] 96 % Holland Ann MD Work Phone: [facility] 01-15-2021 10:43-0500 Systolic blood pressure 112 mm[Hg] Holland Ann MD Work Phone: [facility] 12-27-2020 18:15-0400 Body temperature 98.49 [degF] Wayne Springer MD Work Phone: [employer] Work Phone: 12-27-2020 18:15-0400 Diastolic blood pressure 77 mm[Hg] Wayne Springer MD Work Phone: [employer] Work Phone: Comment on above: Simultaneous filing. User may not have s een previous data. 12-27-2020 18:15-0400 Heart rate 98 /min Wayne Springer MD Work Phone: [facility] Work Phone: 12-27-2020 18:15-0400 Respiratory rate 20 /min Wayne Springer MD Work Phone: [facility] Work Phone: 12-27-2020 18:15-0400 SaO2% (BldA) [Mass fraction] 95 % Wayne Springer MD Work Phone: [facility] Work Phone: Comment on above: Simultaneous filing. User may not have s een previous data. 12-27-2020 18:15-0400 Systolic blood pressure 107 mm[Hg] Wayne Springer MD Work Phone: [facility] Work Phone: Comment on above: Simultaneous filing. User may not have s een previous data. 11-20-2020 21:07-0400 Body height 160 cm Allegra Quinn MD Work Phone: [facility] Work Phone: 11-20-2020 21:07-0400 Body mass index (BMI) [Ratio] 38.62 kg/m2 Allegra Quinn MD Work Phone: [facility] Work Phone: 11-20-2020 21:07-0400 Body temperature 98.6 [degF] Allegra Quinn MD Work Phone: [facility] Work Phone: 11-20-2020 21:07-0400 Body weight 98.88 kg Allegra Quinn MD Work Phone: [facility] Work Phone: 11-20-2020 21:07-0400 Diastolic blood pressure 65 mm[Hg] Allegra Quinn MD Work Phone: [facility] Work Phone: 11-20-2020 21:07-0400 Heart rate 84 /min Allegra Quinn MD Work Phone: [facility] Work Phone: 11-20-2020 21:07-0400 Respiratory rate 16 /min Allegra Quinn MD Work Phone: [facility] Work Phone: 11-20-2020 21:07-0400 SaO2% (BldA) [Mass fraction] 97 % Allegra Quinn MD Work Phone: [facility] Work Phone: 11-20-2020 21:07-0400 Systolic blood pressure 113 mm[Hg] Allegra Quinn MD Work Phone: [facility] Work Phone: 11-07-2020 16:28-0400 Body height 160 cm Nicholas Roger MD Work Phone: [facility] Work Phone: 11-07-2020 16:28-0400 Body mass index (BMI) [Ratio] 38.26 kg/m2 Nicholas Roger MD Work Phone: [facility] Work Phone: 11-07-2020 16:28-0400 Body temperature 98.8 [degF] Nicholas Roger MD Work Phone: [facility] Work Phone: 11-07-2020 16:28-0400 Body weight 97.98 kg Nicholas Roger MD Work Phone: [facility] Work Phone: 11-07-2020 16:28-0400 Diastolic blood pressure 71 mm[Hg] Nicholas Roger MD Work Phone: [facility] Work Phone: 11-07-2020 16:28-0400 Heart rate 98 /min Nicholas Roger MD Work Phone: [facility] Work Phone: 11-07-2020 16:28-0400 Respiratory rate 18 /min Nicholas Roger MD Work Phone: [facility] Work Phone: 11-07-2020 16:28-0400 SaO2% (BldA) [Mass fraction] 94 % Nicholas Roger MD Work Phone: [facility] Work Phone: 11-07-2020 16:28-0400 Systolic blood pressure 120 mm[Hg] Nicholas Roger MD Work Phone: [facility] Work Phone: 07-09-2020 10:52-0400 Body height 160 cm Zelda Bautista CNP Work Phone: [facility] 07-09-2020 10:52-0400 Body mass index (BMI) [Ratio] 41.27 kg/m2 Zelda Bautista CNP Work Phone: [facility] 07-09-2020 10:52-0400 Body weight 105.69 kg Zelda Bautista CNP Work Phone: [facility] 07-09-2020 10:52-0400 Diastolic blood pressure 70 mm[Hg] Zelda Bautista CNP Work Phone: [facility] 07-09-2020 10:52-0400 Heart rate 97 /min Zelda Bautista CNP Work Phone: [facility] 07-09-2020 10:52-0400 Systolic blood pressure 101 mm[Hg] Zelda Bautista CNP Work Phone: [facility] 06-24-2020 09:48-0400 Body mass index (BMI) [Ratio] 40.92 kg/m2 Allegra Quinn MD Work Phone: [facility] Work Phone: 06-24-2020 09:48-0400 Body temperature 97.9 [degF] Allegra Quinn MD Work Phone: [facility] Work Phone: 06-24-2020 09:48-0400 Body weight 104.78 kg Allegra Quinn MD Work Phone: [facility] Work Phone: 06-24-2020 09:48-0400 Diastolic blood pressure 64 mm[Hg] Allegra Quinn MD Work Phone: [facility] Work Phone: 06-24-2020 09:48-0400 Heart rate 120 /min Allegra Quinn MD Work Phone: [facility] Work Phone: 06-24-2020 09:48-0400 Respiratory rate 18 /min Allegra Quinn MD Work Phone: [facility] Work Phone: 06-24-2020 09:48-0400 SaO2% (BldA) [Mass fraction] 100 % Allegra Quinn MD Work Phone: [facility] Work Phone: 06-24-2020 09:48-0400 Systolic blood pressure 115 mm[Hg] Allegra Quinn MD Work Phone: [facility] [employer] Work Phone: 06-09-2020 10:44-0400 Body height 160 cm Lelo Gallegos MD Work Phone: [facility] 06-09-2020 10:44-0400 Body mass index (BMI) [Ratio] 41.27 kg/m2 Lelo Gallegos MD Work Phone: [facility] 06-09-2020 10:44-0400 Body weight 105.69 kg Lelo Gallegos MD Work Phone: [facility] 06-09-2020 10:44-0400 Diastolic blood pressure 75 mm[Hg] Lelo Gallegos MD Work Phone: [facility] 06-09-2020 10:44-0400 Heart rate 116 /min Lelo Gallegos MD Work Phone: [facility] 06-09-2020 10:44-0400 Systolic blood pressure 110 mm[Hg] Lelo Gallegos MD Work Phone: [facility] 03-26-2020 22:17-0500 Pulse (Heart Rate) 98 /min Brie Adly [facility] 03-26-2020 21:43-0500 BP Diastolic 66 mm[Hg] Brie Adly [facility] , [place] 03-26-2020 21:43-0500 BP Systolic 99 mm[Hg] Brie Adly [facility] , [place] 03-26-2020 21:43-0500 Pulse Oximetry 95 % Brie Adly [facility] , [place] 03-26-2020 20:50-0500 Respiratory Rate 16 /min Brie Moreno [facility], [place] 03-26-2020 20:13-0500 BMI (Body Mass Index) 40.14 kg/m2 Brie Adly [facility], [place] 03-26-2020 20:13-0500 Body Temperature 98.2 [degF] Brie Jorgensen [facility] , [place] 03-26-2020 20:13-0500 Body weight 102.78 kg Brie Jorgensen [facility] , [place] 02-15-2020 18:22-0500 BMI (Body Mass Index) 39.75 kg/m2 Brie Jorgensen [facility], [place] 02-15-2020 18:22-0500 Body Temperature 98.6 [degF] Brie Jorgensen [facility], [place] 02-15-2020 18:22-0500 Body weight 101.79 kg Brie Jorgensen [facility] , [place] 02-15-2020 18:22-0500 BP Diastolic 78 mm[Hg] [facility] [place] , [place] 02-15-2020 18:22-0500 BP Systolic 127 mm[Hg] [facility] [place] 02-15-2020 18:22-0500 Height 160 cm Brie Jorgensen [facility] , [place] 02-15-2020 18:22-0500 Pulse (Heart Rate) 92 /min Brie Jorgensen [facility], [place] 02-15-2020 18:22-0500 Pulse Oximetry 99 % Brie Jorgensen [facility] , [place] 02-15-2020 18:22-0500 Respiratory Rate 20 /min Brie [facility] 11-20-2019 18:48-0400 BP Diastolic 75 mm[Hg] [facility] 11-20-2019 18:48-0400 BP Systolic 128 mm[Hg] Allegra Quinn [facility], [place] 11-20-2019 18:48-0400 Pulse (Heart Rate) 83 /min Allegra Quinn [facility], [place] 11-20-2019 18:48-0400 Pulse Oximetry 97 % Allegra Quinn [facility], [place] 11-20-2019 18:48-0400 Respiratory Rate 18 /min [facility] [place] [facility], [place] 11-20-2019 17:00-0400 BMI (Body Mass Index) 36.31 kg/m2 Allegra Quinn [facility] 11-20-2019 17:00-0400 Body Temperature 98.4 [degF] Allegra Quinn [facility] 11-20-2019 17:00-0400 Body weight 92.99 kg Allegra Quinn [facility], [place] 11-03-2019 11:37-0400 BMI (Body Mass Index) 34.47 kg/m2 [facility] 11-03-2019 11:37-0400 Body Temperature 98.71 [degF] [facility] 11-03-2019 11:37-0400 Body weight 88.27 kg [facility], [place] 11-03-2019 11:37-0400 BP Diastolic 66 mm[Hg] [facility], [place] 11-03-2019 11:37-0400 BP Systolic 117 mm[Hg] [facility], [place] 11-03-2019 11:37-0400 Height 160 cm [place], [place] 11-03-2019 11:37-0400 Pulse (Heart Rate) 87 /min [place] 11-03-2019 11:37-0400 Pulse Oximetry 99 % [facility], [place] 11-03-2019 11:37-0400 Respiratory Rate 20 /min [place] 08-13-2019 19:42-0400 BMI (Body Mass Index) 31 kg/m2 [facility] 08-13-2019 19:42-0400 Body Temperature 98.6 [degF] [facility] 08-13-2019 19:42-0400 Body weight 79.38 kg [facility] 08-13-2019 19:42-0400 Height 160 cm [facility] 08-13-2019 19:40-0400 BP Diastolic 60 mm[Hg] [facility] 08-13-2019 19:40-0400 BP Systolic 156 mm[Hg] [facility] 08-13-2019 19:40-0400 Pulse (Heart Rate) 138 /min [facility] 08-13-2019 19:40-0400 Pulse Oximetry 98 % [facility] 08-13-2019 19:40-0400 Respiratory Rate 16 /min Christian Martinez [facility] 06-17-2019 12:45-0400 Respiratory Rate 18 /min [facility] 06-17-2019 07:54-0400 Body Temperature 97.81 [degF] [facility] 06-17-2019 07:54-0400 BP Diastolic 66 mm[Hg] [facility] 06-17-2019 07:54-0400 BP Systolic 99 mm[Hg] [facility] 06-17-2019 07:54-0400 Pulse (Heart Rate) 82 /min [facility] 06-17-2019 07:54-0400 Pulse Oximetry 94 % [facility] 06-14-2019 08:15-0400 BMI (Body Mass Index) 32.92 kg/m2 [facility] 06-14-2019 08:15-0400 Body weight 81.65 kg [facility] 06-14-2019 08:15-0400 Height 157.5 cm [facility] 06-14-2019 04:20-0400 Pulse (Heart Rate) 83 /min [facility] [place] 06-14-2019 04:05-0400 BP Diastolic 58 mm[Hg] [email or web address] [place] [facility] [place] 06-14-2019 04:05-0400 BP Systolic 95 mm[Hg] [email or web address] [place] , [place] 06-14-2019 04:05-0400 Pulse Oximetry 95 % [email or web address] , [place] 06-14-2019 01:12-0400 Respiratory Rate 18 /min [email or web address] [place] 06-14-2019 00:10-0400 Body Temperature 100.51 [degF] [facility] [place] 06-13-2019 22:00-0400 BMI (Body Mass Index) 32.31 kg/m2 [email or web address] [place] [place] 06-13-2019 22:00-0400 Body weight 82.74 kg [email or web address] [place] [facility] [place] 06-13-2019 22:00-0400 Height 160 cm [email or web address] [place] , [place] 04-28-2019 19:58-0500 Body Temperature 98.8 [degF] [facility] [place] [place] 04-28-2019 19:58-0500 BP Diastolic 70 mm[Hg] Roslyn Jorgensen [facility] , [place] 04-28-2019 19:58-0500 BP Systolic 98 mm[Hg] Roslyn Jorgensen [facility] , [place] 04-28-2019 19:58-0500 Pulse (Heart Rate) 119 /min Roslyn Jorgensen [facility], [place] 04-28-2019 19:58-0500 Pulse Oximetry 100 % Roslyn Jorgensen [facility] , [place] 04-28-2019 19:58-0500 Respiratory Rate 30 /min Roslyn Jorgensen [facility] [place] 04-28-2019 19:54-0500 BMI (Body Mass Index) 30.65 kg/m2 Roslyn Jorgensen [facility] 04-28-2019 19:54-0500 Body weight 78.47 kg Roslyn Jorgensen [facility] , [place] 04-28-2019 19:54-0500 Height 160 cm Roslyn Jorgensen [place], [place] Encounters Encounter Date Encounter Type Care Provider Facility Start: 05-20-2023 End: 05-20-2023 ambulatory Not Available Start: 05-13-2023 End: 05-13-2023 Emergency department patient visit Jonathan Martinez Facility:[facility] Start: 05-13-2023 End: 05-13-2023 Emergency department patient visit Jonathan Martinez [facility] Start: 05-11-2023 End: 05-12-2023 Emergency department patient visit Reginaparker Britton Donnie Facility:[facility] Start: 05-11-2023 End: 05-11-2023 Emergency department [facility] Start: 05-10-2023 End: 05-10-2023 Emergency department patient visit CHET BERUMEN [facility] Start: 05-10-2023 End: 05-10-2023 Emergency department patient visit CHET BERUMEN [facility] Start: 05-10-2023 End: 05-10-2023 Emergency department patient visit Chet Berumen DO Work Phone: [facility] ED Comment on above: Toothache (Primary D x); Dental decay Start: 12-27-2022 End: 12-28-2022 ambulatory MARK DUMONT [facility] Start: 11-23-2022 End: 11-24-2022 ambulatory MARK DUMONT [facility] Start: 09-04-2022 Emergency department patient visit LINDA SHEPPARD [facility] Start: 09-04-2022 End: 09-04-2022 Emergency department patient visit Eirn Brush MD Work Phone: [facility] ED Comment on above: Sprain of right ankl e, unspecified ligament, initial encounter (Primary Dx) Start: 06-29-2022 End: 06-30-[address] MARK DUMONT . Facility: Start: 06-29-2022 End: 06-30-2022 ambulatory Linda Shepprad Facility:[facility] Start: 06-29-2022 End: 06-29-2022 Pain Management Todd Smart [facility] Start: 06-14-2022 End: 06-14-[address] MARK DUMONT . Facility: Start: 05-19-2022 Emergency department patient visit Khushi GUARDADO~[id number] STEVIE BRUSH [facility] Start: 05-19-2022 End: 05-19-2022 Emergency department patient visit Erin Brush MD Work Phone: [facility] ED Comment on above: Dry socket (Primary Dx) Start: 05-11-2022 End: 05-11-2022 Emergency department patient visit ALLEGRA QUINN [facility] Start: 05-11-2022 End: 05-11-2022 Emergency department patient visit Allegra Quinn MD Work Phone: [facility] ED Comment on above: Masseter muscle spas m (Primary Dx); Other acute postprocedural pain Start: 03-30-[address] MARK DUMONT . Facili ty:[facility] Start: 03-29-2022 End: 03-29-2022 Subsequent hospital visit by physician [facility] Start: 10-12-2021 End: 10-12-2021 Emergency department patient visit Rishabh Mancini MD Work Phone: [facility] ED Comment on above: Acute bronchitis, un specified organism (Primary Dx) Start: 07-22-2021 End: 07-22-2021 Emergency department patient visit Clark Moser MD Work Phone: [facility] ED Comment on above: Acute pharyngitis, u nspecified etiology (Primary Dx) Start: 07-07-2021 ambulatory BRIE ROCA [facility] Ambulatory Start: 06-18-2021 ambulatory [facility] Ambulatory Start: 06-17-2021 End: 06-18-2021 ambulatory [facility] Start: 05-15-2021 End: 05-19-2021 ambulatory [facility] Start: 05-15-2021 End: 05-15-2021 Nutrition therapy Farhat Vang MD Work Phone: [facility] Comment on above: Morbid obesity with body mass index (BMI) of 40.0 or higher (HCC) Start: 05-14-2021 End: 05-18-2021 ambulatory [facility] Start: 05-14-2021 End: 05-14-2021 Office outpatient visit 15 minutes Farhat Vang MD Work Phone: [facility] Comment on above: Anxiety and depressi on (Primary Dx); At risk for obstructive sleep apnea; Chronic bilateral low back pain without sciatica; Hepatitis C antibody positive in blood; Body mass index 40.0-44.9, adult (HCC); History of opioid abuse (HCC) Start: 04-16-2021 End: 04-20-2021 ambulatory [facility] Start: 04-16-2021 End: 04-16-2021 Initial preventive medicine new pt age 18-39yrs Farhat Vang MD Work Phone: [facility] Comment on above: Encounter for genera l adult medical examination with abnormal findings (Primary Dx); Anxiety and depression; History of opioid abuse (HCC); Morbid obesity with body mass index (BMI) of 40.0 or higher (HCC) Start: 04-16-2021 End: 04-16-2021 Patient encounter status Farhat Vang MD Work Phone: [facility] Start: 03-23-2021 End: 03-23-2021 Emergency department patient visit Allegra Quinn MD Work Phone: [facility] ED Comment on above: COVID-19 (Primary Dx ); Omphalitis in adult Start: 02-16-2021 End: 02-20-[address] [facility] Start: 02-12-2021 End: 02-16-2021 ambulatory PHYSICIAN [facility] Start: 02-10-2021 End: 02-14-[address] [facility] Start: 02-02-2021 End: 02-06-2021 ambulatory PHYSICIAN [facility] Start: 01-15-2021 Documentation procedure Jeimy goodman [facility] Start: 01-15-2021 End: 01-15-2021 ambulatory HOLLAND WHIPPLE SETH [facility] Ambulatory Start: 01-15-2021 End: 01-15-2021 Office outpatient new 30 minutes Holland Ann MD Work Phone: [facility] Comment on above: Hemorrhoids, unspeci fied hemorrhoid type Start: 12-29-2020 End: 01-02-2021 ambulatory PHYSICIAN [facility] Start: 12-27-2020 End: 12-27-2020 Emergency department patient visit Wayne Springer MD Work Phone: [facility] ED Comment on above: Viral syndrome (Prim prakash Dx) Start: 11-20-2020 End: 11-20-2020 Emergency department patient visit Allegra Quinn MD Work Phone: [facility] ED Comment on above: Strain of rhomboid m uscle, initial encounter; Chest wall muscle strain, initial encounter Start: 11-07-2020 End: 11-07-2020 Emergency department patient visit Nicholas Roger MD Work Phone: [facility] ED Comment on above: Viral URI (Primary D x) Start: 08-28-2020 End: 08-30-2020 Evaluation and management of inpatient ROSLYN MARY [facility] Start: 08-25-2020 End: 08-25-2020 ambulatory PHYSICIAN [facility] Start: 07-29-2020 End: 08-02-2020 ambulatory PHYSICIAN [facility] Start: 07-22-2020 End: 07-26-2020 ambulatory [facility] Start: 07-22-2020 End: 07-22-2020 Telemedicine consultation with patient Lelo Gallegos MD Work Phone: [facility] Comment on above: Diet controlled gest ational diabetes mellitus (GDM) in third trimester Start: 07-10-2020 [facility] Start: 07-09-2020 End: 07-09-2020 ambulatory ZELDA BAUTISTA [facility] Start: 07-09-2020 End: 07-09-2020 Office outpatient visit 15 minutes Zelda Bautista CNP Work Phone: [facility] Comment on above: Diet controlled gest ational diabetes mellitus (GDM) in third trimester (Primary Dx) Start: 06-24-2020 End: 06-24-2020 Emergency department patient visit Allegra Quinn MD Work Phone: [facility] ED Comment on above: Acute frontal sinusi tis, recurrence not specified (Primary Dx) Start: 06-10-2020 End: 06-10-2020 Nutrition therapy Lelo Gallegos Work Phone: [facility] Comment on above: Diet controlled gest ational diabetes mellitus (GDM) in second trimester Start: 06-09-2020 End: 06-09-2020 Office outpatient new 30 minutes Roslyn Stevenson MD Work Phone: [facility] Comment on above: Diet controlled gest ational diabetes mellitus (GDM) in second trimester Start: 05-27-2020 End: 05-31-2020 ambulatory PHYSICIAN [facility] Start: 05-21-2020 End: 05-25-2020 ambulatory [facility]ICIAN [facility] Start: 03-26-2020 End: 03-26-2020 Emergency department patient visit Brie Moreno Work Phone: [facility] ED Comment on above: Atypical pneumonia ( Primary Dx) Start: 02-15-2020 End: 02-15-2020 Emergency department patient visit Brie Moreno Work Phone: [facility] ED Comment on above: Pain, dental (Primar y Dx); Acute gingivitis; Alveolar osteitis Start: 11-20-2019 End: 11-20-2019 Emergency department patient visit Allegra Quinn Work Phone: [facility] ED Comment on above: Bacterial vaginosis (Primary Dx); Trichimoniasis; Furuncle of left axilla Start: 11-03-2019 End: 11-03-2019 Emergency department patient visit Wayne Wahl Juan Ramonjuan Work Phone: [facility] ED Comment on above: Poison arabella (Primary Dx) Start: 08-20-2019 End: 08-21-2019 Patient encounter procedure HODA CASSY [facility] Start: 08-20-2019 End: 08-20-2019 Subsequent hospital visit by physician [facility] Start: 08-13-2019 End: 08-13-2019 Emergency department patient visit Christianhansel Martinez Work Phone: [facility] Emergency Department Comment on above: Heroin abuse (HCC) ( Primary Dx) Start: 06-20-2019 End: 06-20-2019 Patient encounter procedure Alisa Palencia Work Phone: [facility] Comment on above: Hepatitis C virus in fection without hepatic coma, unspecified chronicity (Primary Dx) Start: 06-18-2019 End: 06-18-2019 Documentation procedure Taryn Torres [facility] Start: 06-18-2019 Follow-up encounter Taryn Cartagena [facility] Comment on above: Transition Of Care Start: 06-18-2019 End: 06-18-2019 Patient encounter procedure Taryn Torres [facility] Start: 06-14-2019 End: 06-17-2019 Evaluation and management of inpatient [facility] Work Phone: [facility] Comment on above: Elevated LFTs; IVDA (intravenous drug abuse) complicating (HCC) Start: 06-13-2019 End: 06-14-2019 Emergency department patient visit Brie Moreno Work Phone: [facility] ED Comment on above: Abdominal pain, unsp ecified abdominal location (Primary Dx); Urinary tract infection with hematuria, site unspecified; Viral hepatitis without hepatic coma, unspecified chronicity, unspecified viral hepatitis type; Polysubstance abuse (HCC); Hyperbilirubinemia Start: 04-28-2019 End: 04-28-2019 Emergency department patient visit Roslyn Keating Work Phone: [facility] ED Comment on above: Accidental overdose of heroin, initial encounter (HCC) (Primary Dx) Start: 12-20-2016 End: 01-02-2020 Cancer cervix - screening done Lelo Gallegos MD Work Phone: [facility] Start: 12-20-2016 End: 01-02-2020 Encounter for gynecological examination (general) (routine) without abnormal findings Jeimy Tan EXCHANGE OPERATOR [facility] Procedures Date Procedure Procedure Detail Performing [...] Start: 03-29-2022 Gonadotropin chorion ic quantitative Mark Dustin Dumont MD Work Phone: Start: 07-22-2021 [...] in Cervix by Cyto stain Jeimy Tan EXCHANGE OPERATOR Start: 12-27-2020 COVID-, RAPID Wayne Springer MD [...] Blood count complete auto&auto difrntl wbc Brie Moerno Work Phone: Start: 06-13-2019 Drug screen class [...] ion [Identifier] in Cervix by Cyto stain Erni Brush MD Work Phone: Human , f unction (observable entity) Todd Smart Comment on above: x4 Plan of Treatment Date Care Activity Detail Author Start: 2040 Shingles Vaccine (1 of 2) Shingles Vaccine (1 of 2) [facility]- [place], [place] Start: 12-29-2025 Screening for malignant neoplasm of cervix Pap Smear [facility] Start: 10-31-2024 Screening for malignant neoplasm of cervix Pap Smear [facility] Start: 12-30-2023 [facility] Start: 10-31-2022 Screening for malignant neoplasm of cervix [facility] Work Phone: Start: 10-05-2022 Influenza vaccination Flu vaccine (#1) [facility] Start: 04-16-2022 History and physical examination, annual for health maintenance Wellness Visit [facility] Start: 02-13-2022 Depression Remission Assessment (PHQ9) Depression Remission Assessment (PHQ9) [facility] Start: 12-29-2021 History and physical examination, annual for health maintenance Wellness Visit [facility] Start: 11-12-2021 End: 11-12-2021 Patient encounter procedure 11/12/2021 Office Visit Primary Care Farhat Vang MD [address] [id number] [facility] Start: 11-05-2021 Influenza vaccination [facility] Start: 10-05-2021 Influenza vaccination Flu vaccine (#1) [facility] Start: 06-26-2021 End: 06-26-2021 Nutrition therapy 06/26/2021 Nutrition Nutrition Farhat Vang MD [address] [address] Angelito Harvey [facility] Start: 05-15-2021 End: 05-15-2021 Nutrition therapy 05/15/2021 [facility] Start: 05-14-2021 End: 05-14-2021 Patient encounter procedure 05/14/2021 Office Visit Primary Care Farhat Vang MD [address] [address] [facility] Start: 03-17-2021 Depression screening using PHQ-9 (Patient Health Questionnaire 9) score Depression Screening (PHQ9) [facility] Start: 01-15-2021 Depression Remission Assessment (PHQ9) Depression Remission Assessment (PHQ9) [facility] Start: 01-09-2021 Hemoglobin A1c measurement A1C [facility] Start: 12-09-2020 HbA1c (Bld) [Mass fraction] A1C [facility] Start: 12-09-2020 Hemoglobin A1c measurement A1C [facility] Start: 11-05-2020 Influenza vaccination [facility] Start: 10-31-2020 History and physical examination, annual for health maintenance Wellness Visit [facility] Start: 08-28-2020 End: 08-28-2020 Admission to same day surgery center 08/28/2020 Surgery Obstetrics Roslyn Stevenson MD [address] [place] [address] [phone] SECTION [facility] Comment on above: SECTION Start: 08-28-2020 Subsequent hospital visit by physician 08/28/2020 Hospital Encounter Obstetrics Roslyn Stevenson MD [address] [place] [address] [phone] [facility] Start: 08-25-2020 End: 08-25-2020 Office Visit 08/25/2020 Office Visit Endocrinology Zelda Bautista, CHINESE LANGUAGE PROFESSOR [address] [place] [address] [phone] [facility] Start: 07-31-2020 End: 07-31-2020 Office Visit 07/31/2020 Office Visit Endocrinology Benito Krueger, CHINESE LANGUAGE PROFESSOR [address] [place] [address] [phone] [facility] Start: 07-29-2020 End: 07-29-2020 Patient encounter procedure 07/29/2020 Routine Obstetrics and Gynecology Regla Dias CNM [address] [place] [phone] [facility] NAVIGATION OFFICER - An Affiliate of [facility] Start: 07-22-2020 End: 07-22-2020 Telemedicine consultation with patient 07/22/2020 Telemedicine Nutrition Lelo Gallegos MD [address] [place] [address] [phone] [facility] Start: 07-17-2020 End: 07-17-2020 Patient encounter procedure 07/17/2020 Routine Obstetrics and Gynecology Yvonne Santos MD [address] [place] [phone] [facility] NAVIGATION OFFICER - An [facility] Start: 07-09-2020 End: 07-09-2020 Office Visit 07/09/2020 Office Visit Endocrinology Zelda Bautista, CHINESE LANGUAGE PROFESSOR [address] [place] [address] [phone] [facility] Start: 07-04-2020 End: 07-04-2020 Patient encounter procedure 07/04/2020 Routine Obstetrics and Gynecology Radha Pantoja MD [address] [place] [phone] [facility] NAVIGATION OFFICER - An [facility] of [facility] Start: 06-26-2020 End: 06-26-2020 Patient encounter procedure 06/26/2020 Office Visit Endocrinology Janie Chen PA-C [address] [place] [address] [phone] [facility] Start: 06-24-2020 End: 06-24-2020 [facility] Start: 06-19-2020 End: 06-19-2020 Routine 06/19/2020 Routine Obstetrics and Gynecology Larissa, Regla Arriaga CNM [address] [place] [phone] [facility] NAVIGATION OFFICER - An [facility] Start: 05-17-2020 Depression screening using PHQ-9 (Patient Health Questionnaire 9) score Depression Screening (PHQ9) [facility] Start: 2020 Screening for malignant neoplasm of cervix [facility] Start: 02-26-2020 End: 02-26-2020 Initial 02/26/2020 Initial Obstetrics and Gynecology Jai Huerta MD [address] [address] [facility] NAVIGATION OFFICER Start: 11-06-2019 Influenza vaccination [place], [place] Start: 11-06-2019 Influenza vaccination given [facility] Start: 08-06-2019 Screening for malignant neoplasm of cervix Pap Smear [facility] Start: 06-20-2019 End: 06-20-2019 Office Visit 06/20/2019 Office Visit Transition of Care Talha Alisa Hauser, CHINESE LANGUAGE PROFESSOR [address] [facility] [address] [place] [address] [phone] [facility] Start: 11-05-2018 Influenza vaccination Flu vaccine (#1) [place], [place] Start: 11-05-2018 Influenza vaccination given Sequential Influenza Vaccine (#1) [facility] Start: 03-21-2015 Cervical cancer screen Cervical cancer screen [place], [place] Start: 03-21-2015 Screening for malignant neoplasm of cervix Cervical cancer screen [place], [place] Start: 04-05-2014 Screening for malignant neoplasm of cervix Pap smear [facility] Start: 2009 DTaP/Tdap/Td vaccine (1 - Tdap) DTaP/Tdap/Td vaccine (1 - Tdap) [place] Start: 2009 Hepatitis B vaccine (1 of 3 - Risk 3-dose series) Hepatitis B vaccine (1 of 3 - Risk 3-dose series) [facility] Work Phone: Start: 2008 Hepatitis C screening Hepatitis C screen [facility] Start: 2006 COVID-19 Vaccine (1) COVID-19 Vaccine (1) [facility] Start: 2005 HIV screen HIV screen [place], [place] Start: 2005 HIV screening HIV screen [facility] Start: 2002 COVID-19 Vaccine (1) COVID-19 Vaccine (1) [facility] Start: 2002 Depression Monitoring Depression Monitoring [facility] Start: 2001 DTaP/Tdap/Td vaccine (1 - Tdap) DTaP/Tdap/Td vaccine (1 - Tdap) [place] Start: 2001 DTaP/Tdap/Td vaccine (5 - Tdap) DTaP/Tdap/Td vaccine (5 - Tdap) [facility] Start: 2000 Albumin DL <= 20 mg/L (U) [Mass/Vol] Urine Microalbumin [facility] Start: 2000 Diabetic foot examination Foot Exam [facility] Start: 2000 Microalbumin measurement, urine, quantitative Urine Microalbumin [facility] Start: 2000 Ophthalmic examination and evaluation Ophthalmology Exam [facility] Start: 1996 Pneumococcal 0-64 years Vaccine (1 of 1 - PPSV23) Pneumococcal 0-64 years Vaccine (1 of 1 - PPSV23) [place], [place] Start: 1996 Pneumococcal Vaccine: Ped or At-Risk (1 of 2 - PPSV23) Pneumococcal Vaccine: Ped or At-Risk (1 of 2 - PPSV23) [facility] Start: 1995 COVID-19 Vaccine (1) COVID-19 Vaccine (1) [facility] Start: 1993 History and physical examination, annual for health maintenance Wellness Visit [facility] Start: 1991 Varicella vaccine (1 of 2 - 2-dose childhood series) Varicella vaccine (1 of 2 - 2-dose childhood series) [facility] Start: 1990 COVID-19 Vaccine (#1) COVID-19 Vaccine (#1) [facility] Start: 1990 Hepatitis B vaccine (1 of 3 - 3-dose series) Hepatitis B vaccine (1 of 3 - 3-dose series) [facility] Start: 1990 Hepatitis C screening Hepatitis C screen [facility] Start: 1990 Tetanus vaccination Tetanus: Every 10yrs [facility] Anti smooth muscle antibody IgA level Anti-Smooth Muscle Antibody Lab Add-On 06/15/2019 1:50 PM EDT [facility] Antimitochondrial antibody titer Antimitochondrial Antibody Lab Add-On 06/15/2019 1:50 PM EDT [facility] End: 11-20-2019 C.trachomatis N.gonorrhoeae DNA, Urine C.trachomatis N.gonorrhoeae DNA, Urine Microbiology STAT One Time for 1 Occurrences starting 11/20/2019 until 11/20/2019 [place], [place] Comment on above: One Time for 1 Occurrences starting 11/05 until 11/20/2019 C.trachomatis N.gonorrhoeae DNA, Urine C.trachomatis N.gonorrhoeae DNA, Urine Microbiology Stat [employer] Label print 11/20/2019 5:55 PM EDT [place] End: 03-26-2020 Covid-19 Ambulatory Covid-19 Ambulatory Lab Routine Once for 1 Occurrences starting 03/26/2020 until 03/26/2020 [place] Comment on above: Once for 1 Occurrences starting 03/26/19 21 until 03/26/2020 Covid-19 Ambulatory Covid-19 Amb ulatory Lab Routine 03/26/2020 8:44 PM EST [place], [place] End: 06-13-2019 Culture, Blood 1 Culture, Blood 1 Microbiology STAT One Time for 1 Occurrences starting 06/13/2019 until 06/13/2019 [place] Comment on above: One Time for 1 Occurrences starting 10/2019 until 06/13/2019 Culture, Blood 1 [place], [place] End: 03-23-2021 Culture, Wound [facility] Work Phone: Comment on above: One Time for 1 Occurrences starting 03/07 until 03/23/2021 Cytomegalovirus DNA assay CMV DN A Detection and Quant, Blood Lab Routine 06/15/2019 1:50 PM EDT [facility] Kirsten-Hazel Virus P CR, Quantitative Kirsten-Hazel Virus PCR, Quantitative Lab Routine 06/15/2019 1:50 PM EDT [facility] End: 04-16-2022 Hemoglobin A1c/Hemoglobin.total in Blood Hemoglobin A1c Lab Routine Encounter for general adult medical examination with abnormal findings 1 Occurrences starting 04/16/2021 until 04/16/2022 [facility] Work Phone: Comment on above: 1 Occurrences starting 04/16/2021 until 04/16/2022 Hemoglobin A1c/Hemoglobin.total in Blood Hemoglobin A1c Lab Routine Encounter for general adult medical examination with abnormal findings 04/16/2021 10:58 AM [facility] End: 04-16-2022 Hepatitis C antibody measurement Hepatitis C Antibody Lab Routine Encounter for general adult medical examination with abnormal findings 1 Occurrences starting 04/16/2021 until 04/16/2022 [facility] Comment on above: 1 Occurrences starting 04/16/2021 until 04/16/2022 Hepatitis C antibody measurement Hepatitis C Antibody Lab Routine Encounter for general adult medical examination with abnormal findings 04/16/2021 10:58 AM EST [facility] MDI Treatment MDI Treatment Re spiratory Care Routine Every 6hr As Needed until discontinued starting 03/26/2020 [facility] Comment on above: Every 6hr As Needed until discontinued s tarting 03/26/2020 Nuclear Ab IF (S) [Titer] KENIA La b Add-On 06/15/2019 1:50 PM EDT [facility] End: 06-24-2020 Urinalysis, reflex to microscopic Urinalysis, reflex to microscopic Lab STAT One Time for 1 Occurrences starting 06/24/2020 until 06/24/2020 [facility] Work Phone: Comment on above: One Time for 1 Occurrences starting 06/06 until 06/24/2020 End: 05-14-2022 XR Lumbar Spine Complete AP/Lat w Obls XR Lumbar Spine Complete AP/Lat w Obls Imaging Routine Chronic bilateral low back pain without sciatica 1 Occurrences starting 05/14/2021 until 05/14/2022 [employer] Work Phone: Comment on above: 1 Occurrences starting 05/14/2021 until 05/14/2022 Payers Date Payer Category Payer Medicaid [employer] MED[employer] [id number] 2021-Present [phone] [address] [place] [address] 1.2.840.787980.1.13.385.2. 7.3.443356.315 2021 Unknown [id number] 1.2.840.473083.1.13.239.2. 7.3.806895.315 2017 Medicaid [id number] 1.2.840.416239.1.13.385.2. 7.3.094279.315 2012 Medicaid [id number] 1.2.840.640358.1.13.239.2. 7.3.974723.315 2012 Medicaid [id number] 2008 Private Health Insurance [id number] 1990 Unknown [id number] 2.16.840.1.610863.3.579.2. 173 1990 Unknown [id number] 2.16.840.1.979985.3.579.2. 900 1990 Unknown [id number] 2.16.840.1.818409.3.579.2. 900 1990 Unknown [id number] 2.16.840.1.765054.3.579.2. 900 1990 Unknown [id number] 2.16.840.1.231183.3.579.2. 900 1990 Unknown [id number] 2.16.840.1.011474.3.579.2. 900 1990 Unknown [id number] 2.16.840.1.431631.3.579.2. 900 1990 Unknown [id number] 2.16.840.1.744557.3.579.2. 900 1990 Unknown [id number] 2.16.840.1.493601.3.579.2. 903 1990 Unknown [id number] 2.16.840.1.752790.3.579.2. 903 1990 Unknown [id number] 2.16.840.1.619187.3.579.2. 903 1990 Unknown [id number] 2.16.840.1.905518.3.579.2. 903 1990 Unknown [id number] 2.16.840.1.082266.3.579.2. 903 1990 Unknown [id number] 2.16.840.1.274378.3.579.2. 903 1990 Unknown [id number] 2.16.840.1.296141.3.579.2. 903 1990 Unknown [id number] 2.16.840.1.858823.3.579.2. 903 1990 Unknown [id number] 2.16.840.1.129353.3.579.2. 903 1990 Unknown [id number] 2.16.840.1.850868.3.579.2. 903 1990 Unknown [id number] 2.16.840.1.061443.3.579.2. 903 1990 Unknown [id number] 2.16.840.1.819139.3.579.2. 903 1990 Unknown [id number] 2.16.840.1.424060.3.579.2. 903 1990 Unknown [id number] 2.16.840.1.008888.3.579.2. 903 1990 Unknown [id number] 2.16.840.1.085299.3.579.2. 903 1990 Unknown [id number] 2.16.840.1.723730.3.579.2. 593 1990 Unknown [id number] 2.16.840.1.011487.3.579.2. 593 1990 Unknown [id number] 2.16.840.1.113432.3.579.2. 593 1990 Unknown [id number] 2.16.840.1.605057.3.579.2. 593 1990 Unknown [id number] 2.16.840.1.470759.3.579.2. 174 1990 Unknown [id number] 2.16.840.1.585550.3.579.2. 174 1990 Unknown [id number] 2.16.840.1.250373.3.579.2. 174 1990 Unknown [id number] 2.16.840.1.400745.3.579.2. 174 1990 Unknown [id number] 2.16.840.1.893496.3.579.2. 174 1990 Unknown [id number] 2.16.840.1.550974.3.579.2. 174 1990 Unknown [id number] 2.16.840.1.545733.3.579.2. 174 1990 Unknown [id number] 2.16.840.1.472960.3.579.2. 727 1990 Unknown [id number] 2.16.840.1.370310.3.579.2. 727 1990 Unknown [id number] 2.16.840.1.212752.3.579.2. 727 1990 Unknown [id number] 2.16.840.1.358405.3.579.2. 1259 1959 Unknown [id number] Social History Date Type Detail Facility Start: 04-28-2019 End: 11-03-2019 Tobacco smoking status NHIS Current every day smoker [place], [place] End: 02-15-2020 History of tobacco use Cigarette Smoker [place] Start: 04-28-2019 End: 09-04-2022 Cigarettes smoked current (pack per day) - Reported ALEXANDRA PANIAGUA [facility] Start: 04-28-2019 Alcohol intake Current drinke r of alcohol (finding) [place], [place] Start: 1990 Sex Assigned At Not on file [place] Start: 06-13-2019 End: 05-10-2023 Alcohol intake Ex-drinker (finding) [facility] Exposure to SARS-CoV -2 (event) Unable to assess [place], [place] Start: 05-18-2019 End: 04-16-2021 History SDOH Alcohol Frequency 3 [facility] Start: 05-18-2019 End: 07-16-2020 History SDOH Alcohol Std Drinks 5 [facility] Start: 05-04-2021 End: 05-19-2022 Exposure to SARS-CoV-2 (event) Not sure [facility] Start: 11-20-2019 End: 04-01-2020 Tobacco use and exposure Never used [facility] [place] Start: 06-09-2020 End: 05-11-2023 Tobacco smoking status NHIS Former smoker [facility] End: 02-15-2020 History of tobacco use Current smoker [facility] Start: 12-09-2019 [facility] Start: 04-16-2021 History SDOH Social Connections Get Together 4 [facility] Start: 04-16-2021 History SDOH Food Worry 1 [facility] Start: 09-04-2022 Sex Assigned At Female F [facility] Start: 09-04-2022 History SDOH Alcohol Frequency 2 [employer] How often to you hav e a drink containing alcohol? Monthly or less [employer] Average Number of Drinks Not on file [employer] Medical Equipment Procedure Code Equipment Code Equipment Origin al Text Equipment Identifier Dates Use to check BG QID Dx O24.14 . [id number] Start: 06-09-2020 Use as instructe d to check BG QID Dx O24.14 . [id number] Start: 06-09-2020 End: 06-11-2020 use to test BLOO D SUGAR FOUR TIMES DAILY [id number] Start: 06-09-2020 Goals Date Patient Goal Desired Activity /State Functional Status Date Assessment Result Facility 05-13-2023 Functional Status N/A [facility] 05-11-2023 Functional Status N/A [facility] 06-29-2022 Functional Status N/A [facility] Clinical Notes 06-09-2020 to 05-13-2023 Note [...] Follow these instructions at home: Medicines Take xanu-lhj-vudtdps and prescription medicines only as told by [...] Document Reviewed: 04/30/2021 Elsevier Patient Education [address] Follow Up Care 05/13/2023 11:20:07 With:barcoo Address: [facility] Rory Crook [facility] Business (1) When:05/16/2023 12:45:32 Comments:Dentistry follow-up [facility] 05-12-2023 Hospital Discharg e instructions Patient Education 05/11/2023 23:33:09 Dental Pain, Mpvc-ib-Upvc Dental Pain Dental pain is often a [...] Follow these instructions at home: Medicines Take bukn-ujm-shcbfyb and prescription medicines only as told by [...] damage to the area. Brushing your teeth [place] your teeth twice a day using a [...] only when you eat or drink. Take gdvw-wkj-eqqxlty and prescription medicines only as told by your dentist. Watch your dental pain for any changes. Let your dentist know if symptoms get worse. This information is not intended to replace advice given to you by your health care provider. Make sure you discuss any questions you have with your health care provider. Document Revised: 11/26/2020 Document Reviewed: 11/26/2020 [employer] Patient Education [address] Follow Up Care 05/11/2023 21:26:40 With:Linda Sheppard DO Address: [address] [place] [address] Anaya, Amelie , [facility] [address] [place] [address]- When:05/14/2023 [facility] 05-11-2023 Evaluation + Plan note Extrac roxann from: Title:ED Note Author:Violet Walters PA-C ate:05/11/23 1. Pain, dental (K08.89: Oth er specified disorders of teeth and supporting structures) Ordered: amoxicillin-clavulanate, = 1 tab(s), Oral, q12hr, X 7 day(s), # 14 tab(s), Refills(s) 0, Pharmacy: I AM AT [facility], 160, cm, 05/11/23 21:53:00 EST, Height/Length Dosing, 110, kg, 05/11/23 21:53:00 EST, Weight Dosing chlorhexidine topical, 0.018 gm, 15 mL, Oral, BID, 480 mL, Refill(s) 0, (swish and spit; do not swallow), I AM AT [facility], 160, cm, 05/11/23 21:53:00 EST, Height/Length Dosing, 110, kg, 05/11/23 21:53:00 EST, Weight Dosing 2. Infected dental caries (K02.9: Dental caries, unspecified) Ordered: amoxicillin-clavulanate, = 1 tab(s), Oral, q12hr, X 7 day(s), # 14 tab(s), Refills(s) 0, Pharmacy: I AM AT [facility], 160, cm, 05/11/23 21:53:00 EST, Height/Length Dosing, 110, kg, 05/11/23 21:53:00 EST, Weight Dosing chlorhexidine topical, 0.018 gm, 15 mL, Oral, BID, 480 mL, Refill(s) 0, (swish and spit; do not swallow), I AM AT [facility], 160, cm, 05/11/23 21:53:00 EST, Height/Length Dosing, 110, kg, 05/11/23 21:53:00 EST, Weight Dosing 3. First trimester (Z34.91: Encounter for supervision of normal , unspecified, first trimester) Periapical abscess without sinus (K04.7: Periapical abscess without sinus) Orders: ketorolac, 30 mg = 1 mL, Injection, IntraMuscular, Once, Stop date 05/11/23 23:31:00 EST, STAT, Start date 05/11/23 23:31:00 EST, 05/11/23 23:31:00 EST [facility]03-05-2024 Hospital Discharge instructions* Discharge Instructions* Chet Berumen DO - 05/10/2023 11:50 AM EST Use amoxicillin as prescribed. Use Tylenol as needed for pain. Follow-up with dentist as soon as possible. * Attachments The following attachments cannot be sent through Care Everywhere. * Tooth Decay (Senegalese) * Tooth and Gum Pain (Senegalese) [facility] History of Present illness Narrative* [...] Supplements: Reviewed Current Outpatient Medications Ordered in [facility] Medication Sig Dispense Refill baclofen (LIORESAL) [...] mg by mouth daily . No current [facility]-ordered facility-administered medications on file. Lab Results [...] - 6-7 PM- crock pot meals- goulash; French chicken; spicy rice with chicken and beans; [...] calorie goals/day. Estimated Nutritional Needs: Calorie Needs: 1720-3203 kcals/day (MSJ x 1.3AF -500-1000 to promote gradual weight loss) Patient/Family Education: Learner: family and patient Readiness: action - ready to set action plan and implement goals Barriers to Learning: none Method: explanation and handout Response: verbalizes understanding Expected Adherence: good Education Materials Provided: Healthy Meal Planning handout ([facility]), Goal Sheet, 1,979-Rwuwyte5-Jrn Menus (NCM), 1,800-Calorie 5-Day Menus (NCM), Weight Loss Tips ([place]) Monitoring/Evaluation: Lab results, weight, food recall, meal planning, goal achievement, physical activity, medication management. This documentation has been sent to the referring healthcare provider. Angelito Harvey RDN, Personal Office documented in this [id number] History of Present illness Narrative* Farhat Vang [...] C hepatitis virus. Patient was referred to telecom coordinator and the recommendation was made for a [...] improve, for Follow Up. 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 She has 4 children at home [...] Not difficult at all documented in this [id number] History of Present illness Narrative* Holland Ann [...] Procedure: SECTION; Surgeon: Roslyn Stevenson MD; Location: [facility]; Service: OBGYN SECTION, LOW TRANSVERSE 3 Social [...] Friends and Family: Not on file Attends Sabianist Services: Not on file Active Member of [...] Report 12/29/2020 Final Value:Gynecologic Cytology Report Case: [id number] Authorizing Provider: Germania Valentino, Collected: 12/29/2020 11:09 AM CHINESE LANGUAGE PROFESSOR Ordering Location: [facility] NAVIGATION OFFICER - An Received: 12/30/2020 12:03 PM [facility] First Screen: Violet Craig Rescreen: aTlya Abel Specimen: THINPREP PAP SMEAR, Cervix / [...] from every slide are reviewed by a continuous towel roller. Specimen processing and Primary Screening performed at: [facility] - [address] [place] [address] HPV Results 12/29/2020 Final Value:This result contains [...] physician. Holland Ann MD documented in this [id number] History of Present illness Narrative* Jeimy Tan LPN - 01/15/2021 11:17 AM EST This nurse acted as a investigative assistant for a rectal exam by Dr. Ann for Tia. Tia verbalized consent to be examined, appeared comfortable and tolerated the exam well. documented in this [id number] History of Present illness Narrative* Neris Ulloa, [...] no 2) I will try yoga on [employer] - yes but didn't feel comfortable doing [...] oatmeal packet. Snack celery + PB or [place] yogurt or green peppers. Lunch - will be light if full from snack and may have an early dinner. Dinner - pork chops, steamed vegetables. Snack - [place] yogurt or vegetables or watermelon. Beverages - [...] prescription for Current Outpatient Medications Ordered in [facility] Medication Sig Dispense Refill blood sugar [...] the referring healthcare provider. documented in this [id number] Instructions* Patient Instructions* Zelda Bautista CNP - [...] to renew/prescribe testing supplies. documented in this [id number] History of Present illness Narrative* Zelda Bautista [...] visit with us. The patient did bring [employer] sugar meter with her for download today however there is not many readings on it. She states she started a new job at [employer] and does noise get breaks to check [...] 4. Patient to cont. To follow with refrigeration supervisor 5. Patient will require 2 hour 75 gram OGTT 8-12 weeks after delivery. 6. Follow-up in 2 weeks. Risks and potential complications of diabetes were reviewed with the patient. Electronically signed by Zelda MARIN 07/09/2110:03 AM documented in this [id number] History of Present illness Narrative* Lelo Gallegos [...] month during . While awaiting appointment with refrigeration supervisor, patient provided with details of GDM diet, [...] 1 hour post prandial. 4. Referral to refrigeration supervisor 5. Patient will require 2 hour 75 gram OGTT 8-12 weeks after delivery. 6. Follow-up in 2 weeks. Risks and potential complications of diabetes were reviewed with the patient. documented in this encounter[facility]HealthEvaluation + Plan note No data available for this section [facility]* Diagnosis Diet controlled gestational diabetes mellitus (GDM) in second trimester [facility]* Diagnosis Acute frontal sinusitis, recurrence not specified- Primary documented in this encounter [employer] Phone: evaljekvct note* Diagnosis Diet controlled gestational diabetes mellitus (GDM) in third trimester- Primary [facility]* Diagnosis Diet controlled gestational diabetes mellitus (GDM) in third trimester [facility] Diagnosis Viral URI- Primary Acute upper respiratory infections of unspecified site documented in this encounter [employer] Phone: evalhvxgmn note* Diagnosis Strain of rhomboid muscle, initial encounter Chest wall muscle strain, initial encounter documented in this encounter [employer] Phone: evaluation note* Diagnosis Viral syndrome- Primary Unspecified viral infection, in conditions classified elsewhere and of unspecified site documented in this encounter [employer] Phone: evalhfvfzs note* Diagnosis Hemorrhoids, unspecified hemorrhoid type [facility]* Diagnosis COVID-19- Primary Omphalitis in adult Unspecified local infection of skin and subcutaneous tissue documented in this encounter [employer] Phone: evaluation note* Diagnosis Encounter for general adult medical examination with abnormal findings- Primary Anxiety and depression History of opioid abuse (HCC) Morbid obesity with body mass index (BMI) of 40.0 or higher (HCC) [facility] Diagnosis Anxiety and depression- Primary At risk for obstructive sleep apnea Chronic bilateral low back pain without sciatica Hepatitis C antibody positive in blood Body mass index 40.0-44.9, adult (HCC) Body Mass Index 40.0-44.9, adult History of opioid abuse (HCC) documented in [facility] [place] [facility]* Diagnosis Morbid obesity with body mass index (BMI) of 40.0 or higher (HCC) [facility]* Diagnosis Acute pharyngitis, unspecified etiology- Primary documented in this encounter [employer] Phone: evaluation note* Diagnosis Acute bronchitis, unspecified organism- Primary documented in this encounter [employer] Phone: evaluation note* Diagnosis Masseter muscle spasm- Primary Spasm of muscle Other acute postprocedural pain documented in this encounter [facility] [employer] Phone: evaluation note* Diagnosis Dry socket- Primary Alveolitis of jaw documented in this encounter [employer] Phone: evaluation note* Diagnosis Sprain of right ankle, unspecified ligament, initial encounter- Primary documented in this encounter [facility]* Diagnosis Toothache- Primary Unspecified disorder of the teeth and supporting structures Dental decay Unspecified dental caries documented in this encounter [facility] [employer] Discharge instructions* Instructions* Allegra Quinn MD - 06/24/2020 Although many pifp-jca-zususby cough cold flu sinus medications are safe in , I would contact her NAVIGATION OFFICER office in [facility] to verify what your NAVIGATION OFFICER group feels a safe in . Tylenol [...] be sent through Care Everywhere. * Sinusitis (Senegalese) documented in this [employer] Phone: Hospital Discharge instructions* Attachments The following attachments cannot be sent through Care Everywhere. * URI (Upper Respiratory Infection) (Senegalese) documented in this [employer] Phone: Hospital Discharge instructions* Attachments The following attachments cannot be sent through Care Everywhere. * Muscle Strain (Senegalese) documented in this [employer] Phone: Hospital Discharge instructions* Attachments The following attachments cannot be sent through Care Everywhere. * Viral Infections (Senegalese) documented in this [employer] Phone: hospital Discharge instructions* Attachments The following attachments cannot be sent through Care Everywhere. * Coronavirus Disease (COVID-19): General Info (Senegalese) * Coronavirus Disease (COVID-19): Isolation (Senegalese) * Piercing: Infection (Senegalese) documented in this [employer] Phone: Hospital Discharge instructions* Instructions* Clark Moser MD - 07/22/2021 Use Tylenol or Motrin for pain. Take amoxicillin twice a day. Amoxicillin treats strep throat, ear infections, bronchitis and pneumonia. Call primary care doctor for close follow-up. * Attachments The following attachments cannot be sent through Care Everywhere. * Sore Throat (Senegalese) documented in this [employer] Phone: Hospital Discharge instructions* Attachments The following attachments cannot be sent through Care Everywhere. * Bronchitis (Senegalese) documented in this [employer] Phone: hospital Discharge instructions* Attachments The following attachments cannot be sent through Care Everywhere. * Cramp: Muscle (Senegalese) * Pain Post-Surgery: Acute (Senegalese) documented in this [employer] Phone: Hospital Discharge instructions* Attachments The following attachments cannot be sent through Care Everywhere. * [place] Tooth Extraction: Post-op (Senegalese) documented in [facility] Phone: Hospital Discharge instructions No data available for this [facility]* Attachments The following attachments cannot be sent through Care Everywhere. * Ankle Sprain (Senegalese) documented in this [facility] note No data available for this section [facility] for referral (narrative)* Consultation (Routine) Status Reason Specialty Diagnoses / Procedures Referred By Contact Referred To Contact Authorized Nutrition Diagnoses Diet controlled gestational diabetes mellitus (GDM) in second trimester Lelo Gallegos MD [address] [place] [address] Nutrition Services [address] [place] [phone] [facility] for visit Narrative* Consultation (Routine) - Pending Review Specialty Diagnoses / Procedures Referred By Contac t Referred To Contact Gastroenterology Diagnoses Hemorrhoids, unspecified hemorrhoid type Germania Galaviz, CHINESE LANGUAGE PROFESSOR [address] [place] [address] Holland Ann MD [address] [place] [address] Referral ID Status Reason Start Date Expiration Date V isits Requested Visits Authorized [id number] Pending Review 12/29/2020 01/14/2022 1 1 [facility] Assessments Diagnosis Accidental overdose of heroin, [...] FoundDocuments on File Type Date Recorded Patient Food Manager Expl anation Advance Directives and Living Will Power of Seismic Interpreter Documents on File Type Date Recorded Patient Food Manager Expl anation Advance Directives and Living Will 06/14/2019 7:25 AM does not have 3/13/2 0 Latest Code Status on File Code Status Date Activated Date Inactivated Comments Full Code 06/15/2019 9:29 AM 06/17/2019 4:38 PM Full Code - Unverified 06/14/2019 8:35 AM 06/15/2019 9:29 AM Documents on File Type Date Recorded Patient Food Manager Expl anation Advance Directives and Living Will 06/14/2019 7:25 AM does not have 3/13/2 0 Latest Code Status on File Code Status Date Activated Date Inactivated Comments Full Code 06/15/2019 9:29 AM 06/17/2019 4:38 PM Full Code - Unverified 06/14/2019 8:35 AM 06/15/2019 9:29 AM Documents on File Type Date Recorded Patient Food Manager Expl anation Advance Directives and Living Will 06/20/2019 1:10 PM does not have 3/13/2 0 Documents on File Type Date Recorded Patient Food Manager Expl anation ACP-Advance Directive ACP-Power of Seismic Interpreter Documents on File Type Date Recorded Patient Food Manager Expl anation Advance Directives and Living Will 06/20/2019 1:10 PM does not have 3/13/2 0 Documents on File Type Date Recorded Patient Food Manager Expl anation Advance Directives and Living Will 08/28/2020 5:58 AM does not have 3/13/2 0 Latest Code Status on File Code Status Date Activated Date Inactivated Comments Full Code 08/28/2020 11:15 AM 08/30/2020 11:53 AM Full Code 08/28/2020 5:31 AM 08/28/2020 11:07 AM Full Code 06/15/2019 9:29 AM 06/17/2019 4:38 PM Documents on File Type Date Recorded Patient Food Manager Expl anation Advance Directives and Living Will 08/28/2020 5:58 AM does not have 0 Latest Code Status on File Code Status Date Activated Date Inactivated Comments Full Code 08/28/2020 11:15 AM 08/30/2020 11:53 AM Full Code 08/28/2020 5:31 AM 08/28/2020 11:07 AM Full Code 06/15/2019 9:29 AM 06/17/2019 4:38 PM Documents on File Type Date Recorded Patient Food Manager Expl anation Advance Directives and Livin g Will 05/15/2021 12:00 AM Hospital Course * Savita Stiles PA-C - 06/17/2019 10:12 AM EDT [facility] DISCHARGE SUMMARY Tia Levin Account: [id number] Admitted: 06/14/2019 Discharge Date/Time: 06/17/19 10:12 AM [...] amphetamine and heroine use who presented to [facility] 06/14/19 with complaints of abdominal pain and nausea. [facility] AST 1116 ALT 665 Alk phos 255 T bili 6.5 Lipase 8. CTAP revealed pericholecystic fluid vs GB wall thickening, no gallstones or hepatic pathology noted. Patient transferred to [facility] 06/14/2019 for further treatment and evaluation. [...] chart for all vitals, diagnostic data, and retirement sales consultant notes. I discussed patient's case with Dr. Gregorio, Dr. Hay (GI) and RN. Discharge Medications Medication List ASK your doctor about these medications naltrexone microspheres Commonly known as: VivitroL Inject 380 (three hundred eighty) mg into the shoulder, thigh, or buttocks every 30 (thirty) days . Physician(s) Family: Physician No, Phone: None, Address: [facility] Follow Up: Javier Hay MD [address] [place] [address] [place] [id number] Follow up Repeat weekly CBC, CMP and PT/INR for the next 3-4 weeks then follow up out patient with Dr. Hay. Laboratory Follow Up by [facility]: Weekly labs for CBC, CMP, PT/INR Additional Information: Patient seen and examined day of discharge. For more information regarding patient's care, including complete radiology reports, please contact [facility] at Patient instructions, including activity, [...] amphetamine and heroine use who presented to [facility] 06/14/19 with complaints of abdominal pain and nausea. [facility] AST 1116 ALT 665 Alk phos 255 T bili 6.5 Lipase 8. CTAP revealed pericholecystic fluid vs GB wall thickening, no gallstones or hepatic pathology noted. Patient transferred to [facility] 06/14/2019 for further treatment and evaluation. [...] 1:16 PM EDT RESOURCES FOR PRIMARY CARE [facility] Closed Opens tomorrow [address], [place] [address] [employer] [facility] [employer] [place] [address] [place] [address] DIRECTIONS WEBSITE [facility] Closed Opens tomorrow 11 AM [address] [place] [address] documented in this encounter* Instructions* Adia Dillon [...] Opioid Use Disorder: Medication-Assisted Treatment: General Info (Senegalese) documented in this encounter* Attachments The following attachments cannot be sent through Care Everywhere. * Bacterial Vaginosis (Senegalese) * Trichomoniasis (Senegalese) documented in this encounter* Attachments The following attachments cannot be sent through Care Everywhere. * Dental Surgery: Generic: Post-op (Senegalese) documented in this encounter* Attachments The following attachments cannot be sent through Care Everywhere. * Bronchitis (Senegalese) * Pneumonia (Senegalese) documented in this encounter* Attachments The following attachments cannot be sent through Care Everywhere. * Poison [place] - [place] - and [place] ([place]egalese) documented in this encounter History of Present Illness * Javier Hay MD - 06/17/2019 9:59 AM EDT GASTROENTEROLOGY DAILY PROGRESS NOTE 1 Patient Name: Tia Levin MR #: [id number] Assessment/Plan: Elevated LFTs Assessment & Plan 29yo F with PMHx IVDU and hepatitis C who presents from [facility] with elevated LFTs and imaging c/f possible acute cholecystitis. GI consulted for further evaluation. - LFTs: AP 255, AST/ALT 665/1116, TB 6.5 (normal 02/2019) - CT w IVC ([facility]): moderate GBW thickening w pericholecystic fluid and [...] Auguste MD - 06/17/2019 7:41 AM EDT [facility] Inpatient Progress Note 06/17/2019 Tia Levin 1990 [id number] Assessment/Plan: Tia Levin is a 29 y.o. female with a history of amphetamine and heroine use who presented to [facility] 06/14/19 with complaints of abdominal pain and nausea. [facility] AST 1116 ALT 665 Alk phos 255 T bili 6.5 Lipase 8. CTAP revealed pericholecystic fluid vs GB wall thickening, no gallstones or hepatic pathology noted. Patient transferred to [facility] 06/14/2019 for further treatment and evaluation. 1. Acute Liver Injury: [facility] AST 1116 ALT 665 Alk phos 255 [...] labs, diagnostics, vitals including pulse ox, and retirement sales consultant/other provider recommendations. No acute issues [...] 2 Patient Name: Tia Levin MR #: [id number] Assessment/Plan: Elevated LFTs Assessment & Plan 29yo F with PMHx IVDU and hepatitis C who presents from [facility] with elevated LFTs and imaging c/f possible [...] Auguste MD - 06/16/2019 9:38 AM EDT [facility] Inpatient Progress Note 06/16/2019 Tia Levin 1990 [id number] Assessment/Plan: Tia Levin is a 29 y.o. female with a history of amphetamine and heroine use who presented to [facility] 06/14/19 with complaints of abdominal pain and nausea. [facility] AST 1116 ALT 665 Alk phos 255 T bili 6.5 Lipase 8. CTAP revealed pericholecystic fluid vs GB wall thickening, no gallstones or hepatic pathology noted. Patient transferred to [facility] 06/14/2019 for further treatment and evaluation. [...] recent labs, diagnostics, vitals including pulseox, and retirement sales consultant/other provider recommendations. No acute issues [...] 2 Patient Name: Tia Levin MR #: [id number] Assessment/Plan: Elevated LFTs Assessment & Plan 29yo F with PMHx IVDU and hepatitis C who presents from [facility] with elevated LFTs and imaging c/f possible [...] Radiology, Medications and Transcriptions Aisha Hare CNP [facility] (for staff use only) * Indra Pruitt MD - 06/15/2019 10:43 AM EDT [facility] Inpatient Progress Note 06/15/2019 Tia Levin 1990 [id number] Assessment/Plan: Tia Levin is a 29 y.o. female with a history of amphetamine and heroine use who presented to [facility] 06/14/19 with complaints of abdominal pain and nausea. [facility] AST 1116 ALT 665 Alk phos 255 T bili 6.5 Lipase 8. CTAP revealed pericholecystic fluid vs GB wall thickening, no gallstones or hepatic pathology noted. Patient transferred to [facility] 06/14/2019 for further treatment and evaluation. [...] not have a PCP and refused a supportive employment case manager consult for assistance. Verified insurance and Rx. [...] 10:48 AM EDT [facility]. After provider review, I called and spoke with patient and changed her appointment to a phone visit, same date/time. In addition, as per provider request, I spoke with patient about going to any [facility] to have her lab taken so it will be available for review on 06/20/19 when she is called for her TCC appointment. Patient agreed with this plan. documented in this encounter* Anastasiia Garza CNP - 06/20/2019 1:16 PM EDT Attempted to call the patient for her tele-health visit today though she did not answer. Called [employer] number 5 times and home phone once, [...] food assistance and plans to enroll in [employer] and [employer] Monitoring. Pt has a history of drug addiction [...] daily (lemon water) Occasional iced coffee at [employer]. Was drinking a lot of Mountain Dew and Energy drinks prior to but stopped. Meals Away From Home - most days, fast food Past Medical History: Past Medical History: Diagnosis Date Anxiety Depression Infectious viral hepatitis hep c PTSD (Post-Traumatic Stress Disorder) History From: History obtained from patient and chart review. Current/Pertinent Medications: prescription for Current Outpatient Medications Ordered in [facility] Medication Sig Dispense Refill amoxicillin (AMOXIL) [...] daily . 90 tablet 3 No current [facility]-ordered facility-administered medications on file. SMBG Results: [...] mass index (BMI) of 40.0 or higher ([facility]) Farhat Vang MD [address] Referral ID Status Reason Start Date Expiration Date Visits Requested Visits Authorized [id number] Authorized Specialty Services Required/Pat ient's Best Interest 04/16/2021 04/16/2022 1 1 Specialty Diagnoses / Procedures Referred By Contac t Referred To Contact Neurosurgery Diagnoses Chronic bilateral low back pain without sciatica Farhat Vang MD [address] [address] Carina Kline MD [facility] [place] [address] Referral ID Status Reason Start Date Expiration Date Visits Requested Visits Authorized [id number] Authorized Specialty Services Required/Pat ient's Best Interest 05/14/2021 05/14/2022 1 1 Specialty Diagnoses / Procedures Referred By Contac t Referred To Contact Rehabilitation Diagnoses Chronic bilateral low back pain without sciatica Farhat Vang MD 199 [facility] [address] [place] [address] Referral ID Status Reason Start Date Expiration Date Visits Requested Visits Authorized [id number] Authorized Specialty Services Required/Pat ient's Best Interest 05/14/2021 05/14/2022 1 1 Specialty Diagnoses / Procedures Referred By Joey grimes Referred To Contact Diagnoses At risk for obstructive sleep apnea Farhat Vang MD [address] [facility] [address] [place] [address] Gabriel Jacinto MD [address] [place] [address] Referral ID Status Reason Start Date Expiration Date Visits Requested Visits Authorized [id number] Authorized Specialty Services Required/Pat ient's Best Interest 05/14/2021 05/14/2022 1 1 Additional Source Comments Reason for Visit (unrecogniz ed section and content) Reason Comments Drug Overdose Pt was brought in by [facility] for heroin OD. Prior to arrival [facility] [...] in second trimester Lelo Gallegos MD [address] [place] [address] [facility] [address] [place] [address] Reason Comments Gestational Diabetes Status Reason Specialty Diagnoses / Procedures Referred By Contact Referred To Contact Closed Endocrinology Diagnoses Diet controlled gestational diabetes mellitus (GDM) in second trimester Roslyn Stevenson MD [address] [facility] [address] [place] [address] Lelo Gallegos MD [address] [place] [address] Reason Comments Pharyngitis sore throat and head [...] mass index (BMI) of 40.0 or higher ([facility]) Farhat Vang MD [address] [facility] [address] [place] [address] [facility] [address] [place] [address] Referral ID Status Reason Start Date Expiration Date Visits Requested Visits Authorized [id number] Authorized Specialty Services Required/Pat ient's Best Interest [...] [facility] History and Physical Note 06/14/19 Tia Levni 1990 [id number] Assessment/Plan: Tia Levin is a 29 y.o. female with a history of amphetamine and heroine use who presented to [facility] 06/14/19 with complaints of abdominal pain and nausea. [facility] AST 1116 ALT 665 Alk phos 255 T bili 6.5 Lipase 8. CTAP revealed pericholecystic fluid vs GB wall thickening, no gallstones or hepatic pathology noted. Patient transferred to [facility] 06/14/2019 for further treatment and evaluation. 1. Elevated LFTs: [facility] AST 1116 ALT 665 Alk phos 255 T bili 6.5 (normal 02/2019). [facility] CTAP as noted above. RUQ U/S 06/14/19 [...] amphetamine and heroine use who presented to [facility] 06/14/19 with complaints of abdominal pain and nausea. [facility] AST 1116 ALT 665 Alk phos 255 T bili 6.5 Lipase 8. CTAP revealed pericholecystic fluid vs GB wall thickening, no gallstones or hepatic pathology noted. Patient transferred to [facility] 06/14/2019 for further treatment and evaluation. [...] labs, diagnostics, vitals including pulse ox, and retirement sales consultant/other provider recommendations. Discussed with collaborating [...] file Gets together: Not on file Attends religion service: Not on file Active member of [...] the patient independently. Discussed case with Carli Sism PA-C. I personally reviewed their note and agree with their history, exam, and plan of care. All laboratory and images personally reviewed. Chart reviewed, including documentation from previous hospitalizations and retirement sales consultant recommendations as summarized below. Briefly, [...] Name: Tia Levin Admit Date: MR #: [id number] : 1990 Senior addendum 29 y/o F [...] Hepatitis C, and hx of presents to [facility] with jaundice and abdominal pain. 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 I discussed the case with the resident/LABOR CONTRACTOR and agree with the findings and plan as documented in his/her note and/or any note I supplied. Associated Order(s): IP CONSULT TO GASTROENTEROLOGY GASTROENTEROLOGY CONSULT NOTE 4 Patient Name: Tia Levin Admit Date: MR #: [id number] : 1990 Physicians: Physician Judy (Family); Brie Moreno MD (Referring) Consult Ordered By: Franny Sims PA-C Assessment and Plan: Other Elevated LFTs Assessment & Plan 29yo F with PMHx IVDU and hepatitis C who presents from [facility] with elevated LFTs and imaging c/f possible [...] IVDU and hepatitis C who presents from [facility] with elevated LFTs and imaging c/f possible [...] she has been in and out of custodial over past 3mo. She denies EtOH. Denies NSAID and significant Tylenol use. Denies new medications, herbal supplements, or recent ATBx. She denies any known FH of liver disease or GI related malignancies. Current LFTs include: AP 255, AST/ALT 665/1116, TB 6.5 (of note were normal in 02/2019). CTa/p w IVC at [facility] demonstrated moderate GBW thickening w pericholecystic fluid [...] file Gets together: Not on file Attends religion service: Not on file Active member of [...] 10:18 AM Invalid input(s): CO2, LABALBU Aisha Hare CNP [facility] (for staff use only) Associated [...] reviewed, including documentation from previous hospitalizations and retirement sales consultant recommendations as summarized below. Briefly, [...] secti on and content) ED PROVIDER NOTE [facility] EMERGENCY DEPARTMENT NAME: Tia Levin AGE: 29 y.o. : 1990 VISIT DATE: 08/13/2019 CSN: [id number] PCP: Physician No Chief Complaint Patient presents with Drug Overdose This is a 29-year-old female brought to the ER via EMS for evaluation. Time my exam patient is alert and oriented. She states she was in the [employer] parking lot bent over in her car [...] file Gets together: Not on file Attends religion service: Not on file Active member of [...] nursing note reviewed. Exam conducted with a investigative assistant present (Nurses at the bedside). Constitutional: General: [...] for helping people with drug addiction. [address] [facility] [address] Contact information for after-discharge care Follow-up information has not been specified. Adia Dillon CNP 08/13/191948 Pt brought in by [email or web address], states she was found by [facility] unresponsive [...] DATE CREATED AUTHOR AUTHOR'S ALLENIZ DEEPA 02/15/2021 [facility] DATE CREATED AUTHOR AUTHOR'S ORGANIZ ATION 05/18/2021 [facility] DATE CREATED AUTHOR AUTHOR'S ORGANIZ ATION 07/02/2021 [facility] DATE CREATED AUTHOR AUTHOR'S ORGANIZ ATION 07/09/2021 [facility] latory DATE CREATED AUTHOR AUTHOR'S ORGANIZ ATION 07/05/2022 [facility] DATE CREATED AUTHOR AUTHOR'S ORGANIZ ATION 05/10/2023 [facility] DATE CREATED AUTHOR AUTHOR'S ORGANIZ ATION 05/14/2023 [facility] DATE CREATED AUTHOR AUTHOR'S ORGANIZ ATION 05/21/2023 [facility] EPIC Ordered Prescriptions (unrec ognized section [...] Care Teams (unrecognized sec tion and content) Sausage Inspector Relationship Specialty Start Date End Date No, Physician [facility] PCP - General 12/29/20 Germania Galaviz, CHINESE LANGUAGE PROFESSOR [address] [place] [address] Nurse Practitioner Obstetrics/Gynecology 11/01/19 Sausage Inspector Relationship Specialty Start Date End Date No, Physician [facility] PCP - General 12/29/20 Germania Galaviz, CHINESE LANGUAGE PROFESSOR [address] [place] [address] Nurse Practitioner Obstetrics/Gynecology 11/01/19 Sausage Inspector Relationship Specialty Start Date End Date Farhat Vang MD [address] [facility] [address] [place] [address] PCP - General Family Medicine 04/16/21 Germania Galaviz, CHINESE LANGUAGE PROFESSOR [address] [place] [address] Nurse Practitioner Obstetrics/Gynecology 11/01/19 Radha Pantoja MD [address] [place] [address] Bookkeeping Clerks Supervisor Obstetrics/Gynecology 02/02/21 Yvonne Santos MD [address] [facility] [place] [address] Bookkeeping Clerks Supervisor Obstetrics/Gynecology 02/02/21 Regla Dias, [facility] [address] [facility] [place] [address] Hand Bulldozer Obstetrics/Gynecology 02/02/21 Sausage Inspector Relationship Specialty Start Date End Date Farhat Vang MD [address] [address] PCP - General Family Medicine 04/16/21 Germania Galaviz, CHINESE LANGUAGE PROFESSOR [address] [facility] [place] [address] Nurse Practitioner Obstetrics/Gynecology 11/01/19 Radha Pantoja MD [address] [facility] [place] [address] Bookkeeping Clerks Supervisor Obstetrics/Gynecology 02/02/21 Yvonne Santos MD [address] [facility] [place] [address] Bookkeeping Clerks Supervisor Obstetrics/Gynecology 02/02/21 Regla Dias, [facility] [address] [facility] [place] [address] Hand Bulldozer Obstetrics/Gynecology 02/02/21 Sausage Inspector Relationship Specialty Start Date End Date Farhat Vang MD [address] [facility] [address] [place] [address] PCP - General Family Medicine 04/16/21 Germania Galaviz, CHINESE LANGUAGE PROFESSOR [address] [facility] [place] [address] Nurse Practitioner Obstetrics/Gynecology 11/01/19 Radha Pantoja MD [address] [facility] [address] [place], [place] [address] Bookkeeping Clerks Supervisor Obstetrics/Gynecology 02/02/21 Yvonne Santos MD [address] [facility] [address] [place] [address] Bookkeeping Clerks Supervisor Obstetrics/Gynecology 02/02/21 Regla Dias CNM [address] [facility] [address] [place] [address] Hand Bulldozer Obstetrics/Gynecology 02/02/21 Sausage Inspector Relationship Specialty Start Date End Date Linda Sheppard DO [address] [place] [address] PCP - General Family Medicine 09/04/22 Sausage Inspector Relationship Specialty Start Date End Date Linda Sheppard DO [address] [facility] [place] [address] PCP - General Family Medicine [...] BE BASED ON THE PRIMARY CLINICAL RECORDS. [facility]. provides no warranty or guarantee of the accuracy or completeness of information in this document.
--- NOTE | 2023-06-19 21:01 | ED.GENADUL1 ---
HPI HPI - General Adult General Chief complaint: OB/Uterine Contractions Stated complaint: 11 week Blood pressure High Time Seen by Provider: 06/19/23 20:43 Source: patient Mode of arrival: walk-in Limitations: no limitations History of Present Illness HPI narrative: Patient is a 33-year-old female who presents to the emergency department at 11 weeks with a twin gestation for the evaluation of multiple complaints. Patient states for the last several days she has just not felt well and has had fatigue, felt rundown. She has chronic nausea throughout this . She had a normal Twin live intrauterine gestation on ultrasound 4 weeks ago. She is on progesterone vaginal suppositories and has had white vaginal discharge. There is no evidence of tubal at that time. Patient states she has had mild cramping in the abdomen diffusely and low back but has not had any vaginal bleeding or severe pain. She has not had any fevers. She states at rest, her heart rate has been elevated in the 90s. She has had poor appetite and not been eating and drinking normally. Related Data Allergies Allergy/AdvReac Type Severity Reaction Status Date / Time No Known Drug Allergies Allergy Verified 06/19/23 20:44 Opioid HPI Opioid Management Most Recent Opioid Data: No Data to Display Review of Systems ROS Constitutional Denies: fever or chills Ears, nose, mouth, and throat Denies: throat pain or nasal congestion Cardiovascular Denies: chest pain Respiratory Denies: shortness of breath or cough Gastrointestinal Reports: nausea; Denies: vomiting Musculoskeletal Reports: back pain Integumentary/Breast Denies: rash Neurological Denies: headache Hematologic/Lymphatic Denies: easy bruising or easy bleeding Exam Narrative Exam Narrative: Gen.: Awake, alert, in no distress Head: Normocephalic, atraumatic ENT: Moist mucous membranes Respiratory: No respiratory distress, lungs clear bilaterally Cardio: Regular rate and rhythm Gastrointestinal: Abdomen is soft, nondistended and nontender to palpation Extremities: Moves extremities equally Psych: Normal mood and affect Neuro: No focal neuro deficit Skin: Warm, dry, intact Constitutional Vital Signs, click to edit/add: Last Vital Signs Temp 98 F 06/19/23 20:44 Pulse 89 06/19/23 20:44 Resp 18 06/19/23 20:44 BP 135/85 06/19/23 20:44 Pulse Ox 97 06/19/23 20:44 O2 Del Method Room Air 06/19/23 20:44 Course Vital Signs Vital signs: Vital Signs Temperature 98 F 06/19/23 20:44 Pulse Rate 89 06/19/23 20:44 Respiratory Rate 18 06/19/23 20:44 Blood Pressure 135/85 06/19/23 20:44 Pulse Oximetry 97 06/19/23 20:44 Oxygen Delivery Method Room Air 06/19/23 20:44 Temperature 98 F 06/19/23 20:44 Pulse Rate 89 06/19/23 20:44 Respiratory Rate 18 06/19/23 20:44 Blood Pressure 135/85 06/19/23 20:44 Pulse Oximetry 97 06/19/23 20:44 Oxygen Delivery Method Room Air 06/19/23 20:44 Medical Decision Making MDM Narrative Medical decision making narrative: Patient was stable vital signs in the emergency department. She has unremarkable labs, normal urine specimen. No evidence of UTI or sepsis. Abdomen is soft and benign. She did request Zofran for nausea. She was given IV fluids and nausea medication. She was noted to have abnormal thyroid studies and free T4, free T3 were added for her. She will need to have her thyroid evaluated more closely with her PCP or SENIOR USER EXPERIENCE ARCHITECT. She was reevaluated by attending physician prior to discharge, no indication for emergent ultrasound at this time as the patient was noted already to have an IUP and is not actively bleeding in the ER. She should follow closely with her SENIOR USER EXPERIENCE ARCHITECT and return to the emergency department if symptoms change or worsen. Medical Records Medical records reviewed: Yes I reviewed the patient's medical records Lab Data Lab results reviewed: Yes I reviewed the patient's lab results Labs: Lab Results 06/19/23 06/19/23 Range/Units 20:57 21:07 WBC 11.3 H (4.0-11.0) 10^3/uL RBC 4.06 L (4.20-5.40) 10^6/uL Hgb 11.7 L (12.0-16.0) g/dL Hct 34.4 L (36.0-48.0) % MCV 84.7 (81.0-99.0) fL MCH 28.8 (26.7-34.0) pg MCHC 34.0 (29.9-35.2) g/dL RDW 12.8 (11.0-15.0) % Plt Count 285 (150-450) 10^3/uL MPV 9.9 (9.5-13.5) fL Neut % (Auto) 72.4 (43.0-75.0) % Lymph % (Auto) 18.7 L (20.5-60.0) % [place] % (Auto) 7.1 (1.7-12.0) % Eos % (Auto) 0.8 L (0.9-7.0) % Baso % (Auto) 0.3 (0.2-2.0) % Neut # (Auto) 8.2 H (1.4-6.5) 10^3/uL Lymph # (Auto) 2.1 (1.2-3.8) 10^3/uL [place] # (Auto) 0.8 (0.3-0.8) 10^3/uL Eos # (Auto) 0.1 (0.0-0.7) 10^3/uL Baso # (Auto) 0.0 (0.0-0.1) 10^3/uL Abs Immat Gran (auto) 0.08 H (0.00-0.03) 10^3/uL Imm/Tot Granulo (auto) 0.7 H (0.0-0.5) % Sodium 137 (136-145) mmol/L Potassium 3.8 (3.5-5.1) mmol/L Chloride 103 (98-107) mmol/L Carbon Dioxide 24.9 (21.0-32.0) mmol/L Anion Gap 12.9 BUN 10.0 (7.0-18.0) mg/dL Creatinine 0.56 (0.55-1.02) mg/dL Est GFR ( Amer) >60 (>=60) Est GFR (Non-Af Amer) >60 (>=60) BUN/Creatinine Ratio 17.9 Glucose 99 (74-106) mg/dL Lactate 1.2 (0.4-2.0) mmol/L Calcium 8.9 (8.5-10.1) mg/dL Total Bilirubin 0.2 (0.2-1.0) mg/dL AST 13 L (15-37) U/L ALT 10 L (14-59) U/L Alkaline Phosphatase 56 (46-116) U/L Total Protein 6.4 (6.4-8.2) g/dL Albumin 2.7 L (3.4-5.0) g/dL Globulin 3.7 g/dL Albumin/Globulin Ratio 0.7 TSH <0.007 L (0.358-3.740) uIU/mL Urine Color Lt. yellow (YELLOW) Urine Clarity Clear (CLEAR) Urine pH 6.5 (5.0-9.0) Ur Specific [place] 1.010 (1.005-1.025) Urine Protein Negative (NEG/TRACE) mg/dL Urine Glucose (UA) Negative (NEGATIVE) mg/dL Urine Ketones Negative (NEGATIVE) mg/dL Urine Occult Blood Negative (NEGATIVE) Urine Nitrite Negative (NEGATIVE) Urine Bilirubin Negative (NEGATIVE) Urine Urobilinogen 0.2 (0.2-1.0) EU/dL Ur Leukocyte Esterase Negative (NEGATIVE) Monoscreen Negative (NEGATIVE) Discharge Plan Discharge Stand Alone Forms: Portal Instructions Chief Complaint: OB/Uterine Contractions Clinical Impression: Fatigue during , Low TSH level Patient Disposition: Home, Self-Care Time of Disposition Decision: 22:01 Condition: Good Print Language: Slovak Instructions: at 11 to 14 Weeks (ED) Referrals: KEDAR SHEPPARD [Primary Care Provider] - 1 week Mark Dumont DO [Physician] - 1 week
[2023-06-19] MEDS: 0.9 % SODIUM CHLORIDE 1,000 ML 1000 ML IV (21:10)
[2023-06-19 21:14] LABS: Bilirubin Urine NEGATIVE (NEGATIVE); Blood Urine NEGATIVE (NEGATIVE); Clarity Urine CLEAR (CLEAR); Color Urine LT. YELLOW (YELLOW); Glucose Urine UA NEGATIVE (NEGATIVE); Ketones Urine NEGATIVE (NEGATIVE); Leukocyte Esterase Urine NEGATIVE (NEGATIVE); Nitrite Urine NEGATIVE (NEGATIVE); Protein Urine NEGATIVE (NEG/TRACE); Urobilinogen Urine 0.2 EU/dL (0.2-1.0); pH Urine 6.5 (5.0-9.0)
[2023-06-19 21:16] LABS: Urine Microscopic Indicated NO
[2023-06-19 21:21] LABS: Basophils Percent Auto 0.3 % (0.2-2.0); Eosinophils Absolute Auto 0.1 10^3/uL (0.0-0.7); Eosinophils Percent Auto 0.8 % (0.9-7.0); Hematocrit 34.4 % (36.0-48.0); Hemoglobin 11.7 g/dL (12.0-16.0); Immature Granulocytes Abs Auto 0.08 10^3/uL (0.00-0.03); Immature Granulocytes Pct Auto 0.7 % (0.0-0.5); Lymphocytes Absolute Auto 2.1 10^3/uL (1.2-3.8); Lymphocytes Percent Auto 18.7 % (20.5-60.0); Mean Corpuscular Hemoglobin 28.8 pg (26.7-34.0); Mean Corpuscular Volume 84.7 fL (81.0-99.0); Mean Platelet Volume 9.9 fL (9.5-13.5); Monocytes Absolute Auto 0.8 10^3/uL (0.3-0.8); Monocytes Percent Auto 7.1 % (1.7-12.0); Neutrophils Absolute Auto 8.2 10^3/uL (1.4-6.5); Neutrophils Percent Auto 72.4 % (43.0-75.0); Platelet Count 285 10^3/uL (150-450); Red Blood Count 4.06 10^6/uL (4.20-5.40); Red Cell Distribution Width 12.8 % (11.0-15.0); White Blood Count 11.3 10^3/uL (4.0-11.0)
[2023-06-19 21:30] LABS: Mono Screen NEGATIVE (NEGATIVE)
[2023-06-19 21:36] LABS: Alanine Aminotransferase 10 U/L (14-59); Albumin Globulin Ratio 0.7; Albumin Level 2.7 g/dL (3.4-5.0); Alkaline Phosphatase 56 U/L (46-116); Anion Gap 12.9; Aspartate Amino Transferase 13 U/L (15-37); BUN Creatinine Ratio 17.9; Bilirubin Total 0.2 mg/dL (0.2-1.0); Calcium 8.9 mg/dL (8.5-10.1); Carbon Dioxide 24.9 mmol/L (21.0-32.0); Chloride 103 mmol/L (98-107); Estimated GFR (African America >60 (>=60); Estimated GFR (Non-African Ame >60 (>=60); Globulin 3.7 g/dL; Glucose 99 mg/dL (74-106); Potassium 3.8 mmol/L (3.5-5.1); Sodium 137 mmol/L (136-145); Total Protein 6.4 g/dL (6.4-8.2)
[2023-06-19 21:39] LABS: Lactate/Lactic Acid 1.2 mmol/L (0.4-2.0)
[2023-06-19] MEDS: ONDANSETRON PF 4 MG/2 ML VIAL IV (21:42)
[2023-06-19 21:46] LABS: Thyroid Stimulating Hormone <0.007 uIU/mL (0.358-3.740)
[2023-06-19 22:25] LABS: Free T4 1.34 ng/dL (0.76-1.46)
== END 2023-06-19 22:14 | disposition home or self-care (01) ==
PROVIDERS: Physician Assistant; Emergency Provider Emergency Medicine
DX: O26.891 Other specified pregnancy related conditions, first trimester (principal); R94.6 Abnormal results of thyroid function studies; R53.83 Other fatigue; O30.001 Twin pregnancy, unspecified number of placenta and unspecified number of amniotic sacs, first trimester; Z3A.11 11 weeks gestation of pregnancy
CPT/HCPCS: 36415; 80053; 81003; 83605; 84439; 84443; 84481; 85025; 86308; 96374; 99284

== ENCOUNTER 2023-07-19 20:22 | Outpatient (REF) | payer BC, SELFPAY ==
[2023-07-24 09:09] LABS: Age Gdln ACOG Testing Note (.); HPV Aptima Negative (Negative); IGP, Aptima HPV, rfx 16/18,45 Note (.)
== END 2023-07-19 20:23 | disposition home or self-care (01) ==
LOC: LAB 20:22
PROVIDERS: Visit Provider Obstetrics & Gynecology
DX: Z01.419 Encounter for gynecological examination (general) (routine) without abnormal findings (principal)
CPT/HCPCS: 87624; G0145

== ENCOUNTER 2023-07-28 09:38 | Outpatient (OUT) | payer BC, SELFPAY ==
[2023-07-28 11:16] LABS: Basophils Percent Auto 0.3 % (0.2-2.0); Eosinophils Absolute Auto 0.1 10^3/uL (0.0-0.7); Eosinophils Percent Auto 0.7 % (0.9-7.0); Hematocrit 34.1 % (36.0-48.0); Hemoglobin 11.6 g/dL (12.0-16.0); Immature Granulocytes Pct Auto 0.9 % (0.0-0.5); Lymphocytes Absolute Auto 1.8 10^3/uL (1.2-3.8); Lymphocytes Percent Auto 15.6 % (20.5-60.0); Mean Corpuscular Hemoglobin 28.9 pg (26.7-34.0); Mean Platelet Volume 10.7 fL (9.5-13.5); Monocytes Absolute Auto 0.6 10^3/uL (0.3-0.8); Monocytes Percent Auto 5.1 % (1.7-12.0); Neutrophils Percent Auto 77.4 % (43.0-75.0); Platelet Count 273 10^3/uL (150-450); Red Blood Count 4.01 10^6/uL (4.20-5.40); Red Cell Distribution Width 13.2 % (11.0-15.0); White Blood Count 11.6 10^3/uL (4.0-11.0)
[2023-07-28 12:03] LABS: Glucose 1 Hour 169 mg/dL (<130)
== END 2023-07-28 09:39 | disposition home or self-care (01) ==
LOC: LAB 09:38
PROVIDERS: Visit Provider Obstetrics & Gynecology
DX: O30.002 Twin pregnancy, unspecified number of placenta and unspecified number of amniotic sacs, second trimester (principal); Z13.1 Encounter for screening for diabetes mellitus
CPT/HCPCS: 36415; 82950; 85025

== ENCOUNTER 2023-08-04 07:14 | Outpatient (OUT) | payer BC, SELFPAY ==
--- OUTSIDE RECORDS SUMMARY | 2023-08-04 07:17 | XMS_ITS | CCD ---
Author Organization [facility] ion Partnership [facility] Care Team Providers Care Trailer Steerer Name Role Phone Unavailable Primary Care Provider Unavailabl e No, Physician Primary Care Provider Unavailabl e HODA MADERA Unavailable Unavailable Primary Care Provider Unavailabl e No, Physician Primary Care Provider Unavailabl Germania Becerra Unavailable Roslyn Stevenson Unavailable Radha Pantoja Unavailable Yvonne Santos Unavailable Larissa, Regla Corina Unavailable [phone] No, Physician Primary Care Provider UnavailGermania Rodriguez [...] MD Unavailable Yvonne Santos MD Unavailable Larissa KHOURY, Regla Corina Unavailable Ciera PEDRAZA, Narcis Dawit Primary Care Provider PAPADOPOL, NARCIS DAWIT Admitting Unavaila ble PAPADOPOL, NARCIS DAWIT Primary Care Unavaila ble PAPADOPOL, NARCIS DAWIT Admitting Unavaila ble PAPADOPOL, NARCIS DAWIT Primary Care Unavaila ble ROSLYN STEVENSON Admitting Unavailabl e ROSLYN STEVENSON Attending Unavailabl [...] LINDA SHEPPARD Primary Care Unavailable DIAB Khushi DINH~[phone] KAI Attendi ng Unavailable DIAB Khushi DINH~[phone] KAI Attendi ng Unavailable CHET BERUMEN Attending Unavailable LINDA SHEPPARD Primary Care Unavailable CHET BERUMEN Attending Unavailable LINDA SHEPPARD Primary Care Unavailable Jonathan Martinez Attending Unavailable Zac Fields Attending Unavailable Linda Sheppard Referring Unavailable Todd Smart Attending Unavailable MD Todd Smart Admitting Unavailable MARK DUMONT Attending Unavailable MARK DUMONT Attending Unavailable LINDA SHEPPARD Primary Care Unavailable BLAKE KAUFFMAN Referring Unavailable Medications Current Medications Medication Drug Class(es) [...] day(s), # 14 tab(s), Refills(s) 0, Pharmacy: [facility], 160, cm, 05/11/23 21:53:00 EST, Height/Length [...] oral solution (2 sources) alpha-Adrenergic Agonist, Uncompetitive R-zigigd-S-aspartat e Receptor Antagonist, Sigma-1 Agonist Start: 10-12-2021 [...] three times daily as needed for cough qekzbcdywrfaekr-ppkkpelfsifnnvl-FN 2-30- 10 MG/5ML syrup Take 5 mLs [...] 0, (swish and spit; do not swallow), [facility], 160, cm, 05/11/23 21:53:00 EST, Height/Length [...] Active Dextromethorphan / guaiFENesin (2 sources) Uncompetitive J-doytaj-E-asparta te Receptor Antagonist, Sigma-1 Agonist End: 06-24-2020 [...] day(s), # 15 tab(s), Refills(s) 0, Pharmacy: [facility], 160, cm, 05/13/23 11:33:00 EST, Height/Length [...] for Pain. 0 05/10/2023 Discontinued (LIST CLEANUP) [id number] 200 actuat albuterol 0.09 mg/actuat metered dose [...] Oral, Every 4 hours PRN, indigestion, Starting [facility] 06/14/19 at 0831 azithromycin 250 mg oral [...] Oral, Daily PRN, constipation, For constipation., Starting [facility] 06/14/19 at 0831 naloxone (NARCAN) injection 0.1 [...] coma; Translations: [Viral hepatitis C] 06-29-2022 Episodic Hypertension complicating ; childbirth and the puerperium (2 sources) Pre-existing essential hypertension complicating , unspecified trimester; Translations: [Pre-existing essential hypertension complicating , unspecified trimester] Onset: 07-26-2023 Chronic Immunizations and screening for infectious disease (20 sources) Patient encounter status; Translations: [Encounter for screening for infections with a predominantly sexual mode of transmission] Onset: 12-20-2016 Resolved: 01-02-2020 01-02-2020 Episodic Menstrual disorders (19 sources) Spasmodic dysmenorrhea; 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-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 Mood disorders (19 sources) Depressive disorder; Translations: [Major depressive disorder, single episode, unspecified] Onset: 06-25-2010 06-25-2010 Chronic Other complications of (2 sources) Supervision of other high risk pregnancies, second trimester; Translations: [Supervision of other high risk pregnancies, second trimester] Onset: 07-26-2023 Episodic Other connective tissue disease (1 source) [place] [...] 12-29-2020 Chronic Other and delivery including normal (3 sources) Normal ; Translations: [Encounter for supervision of [...] Residual codes; unclassified (3 sources) Sleep apnea 04-25-2023 Chronic Residual codes; unclassified (1 source) At [...] Translations: [Accidental overdose of heroin, initial encounter ([facility])] Episodic Substance-related disorders (1 [...] l admission (14 sources) Admission statuses; Translations: [terminal carman (current) use of opiate analgesic] Onset: 05-18-2019 [...] Test Name Value Interpretation Reference Range Facility AFP, Maternalon 07-28-2023 Determined by Ultrasound Normal [facility] Comment on above: Performed By: #### A AFPM #### [facility] [address] [address] Plant Protection Guard: Thor Hernández MD [facility] [address] [place] [phone] Plant Protection Guard: Tim Vizcarra MD #### FT3, TSH, FT4 #### [facility] [address] [place] [address] Plant Protection Guard: Thor Hernández MD Due Date SEE NOTE Normal [facility] Comment on above: Result Comment: Resu lts for Estimated Due Date: 01 06 24 Performed By: #### A AFPM #### [facility] [address] [place] [address] Plant Protection Guard: Thor Hernández MD [facility] [address] [place] [address] Plant Protection Guard: Tim Vizcarra MD #### FT3, TSH, FT4 #### [facility] [address] [place] [address] Plant Protection Guard: Thor Hernández MD Family History No Normal [facility] Comment on above: Performed By: #### A AFPM #### [facility] [address] [place] [address] Plant Protection Guard: Thor Hernández MD [facility] [address] [place] [address] Plant Protection Guard: Tim Vizcarra MD #### FT3, TSH, FT4 #### [address] [address] Plant Protection Guard: Thor Hernández MD Gestat Age (exact) 16 wks, 4 days Normal [facility] Comment on above: Performed By: #### A AFPM #### [address] [address] Plant Protection Guard: Thor Hernández MD [address] [phone] Plant Protection Guard: Tim Vizcarra MD #### FT3, TSH, FT4 #### [address] [address] Plant Protection Guard: Thor Hernández MD Ins Req Matern Diab No Normal [facility] Comment on above: Performed By: #### A AFPM #### [address] [address] Plant Protection Guard: Thor Hernández MD [facility] [address] [place] [address] Plant Protection Guard: Tim Vizcarra MD #### FT3, TSH, FT4 #### [address] [address] Plant Protection Guard: Thor Hernández MD Interpretation Screen Neg Normal [facility] Comment on above: Result Comment: (NOT E) INTERPRETATION: SCREEN NEGATIVE for open spina bifida Neural Tube Defects (NTD) Negative Pre-Test Post-Test Cutoff Neural Tube Defects Risks 1:452 1:3230 1:103 Comments: The risk of an open neural tube defect is less than the twin screening cut-off. This test was developed and its performance characteristics determined by [facility]. It has not been cleared or approved by the [place] Food and Drug Administration. This test was performed in a CLIA certified laboratory and is intended for clinical purposes. Performed By: #### A AFPM #### [address] [address] Plant Protection Guard: Thor Hernández MD [address] [phone] Plant Protection Guard: Tim Vizcarra MD #### FT3, TSH, FT4 #### [address] [address] Plant Protection Guard: Thor Hernández MD [age] [facility] Comment on above: Performed By: #### A AFPM #### [address] [address] Plant Protection Guard: Thor Hernández MD [address] [phone] Plant Protection Guard: Tim Vizcarra MD #### FT3, TSH, FT4 #### [facility] [address] [place] [address] Plant Protection Guard: Thor Hernández MD Maternal Race Nonblack [facility] Comment on above: Performed By: #### A AFPM #### [address] [address] Plant Protection Guard: Thor Hernández MD [facility] [address] [place] [phone] Plant Protection Guard: Tim Vizcarra MD #### FT3, TSH, FT4 #### [address] [address] Plant Protection Guard: Thor Hernández MD Maternal Weight 239.0 lbs. Normal [facility] Comment on above: Performed By: #### A AFPM #### [address] [address] Plant Protection Guard: Thor Hernández MD [facility] [address] [place] [address] Plant Protection Guard: Tim Vizcarra MD #### FT3, TSH, FT4 #### [address] [address] Plant Protection Guard: Thor Hernández MD MoM for AFP 1.71 Normal [facility] Comment on above: Performed By: #### A AFPM #### [address] [address] Plant Protection Guard: Thor Hernández MD [address] [phone] Plant Protection Guard: Tim Vizcarra MD #### FT3, TSH, FT4 #### [address] [address] Plant Protection Guard: Thor Hernández MD Number of Fetuses Twins Normal [facility] Comment on above: Performed By: #### A AFPM #### [address] [address] Plant Protection Guard: Thor Hernández MD [facility] [address] [place], [place] [phone] Plant Protection Guard: Tim Vizcarra MD #### FT3, TSH, FT4 #### [address] [address] Plant Protection Guard: Thor Hernández MD Patient's AFP 46 ng/mL Normal [facility] Comment on above: Performed By: #### A AFPM #### [address] [address] Plant Protection Guard: Thor Hernández MD [address] [address] Plant Protection Guard: Tim Vizcarra MD #### FT3, TSH, FT4 #### [address] [address] Plant Protection Guard: Thor Hernández MD Smoking Unknown Normal [facility] Comment on above: Performed By: #### A AFPM #### [address] [address] Plant Protection Guard: Thor Hernández MD [address] [phone] Plant Protection Guard: Tim Vizcarra MD #### FT3, TSH, FT4 #### [address] [address] Plant Protection Guard: Thor Hernández MD Specimen See Note [facility] Comment on above: Result Comment: (NOT E) Initial sample Performed By: [facility] [address] [place] [address] Drafting Technician: Morro Modi MD, PhD CLIA Number: [id number] Performed By: #### A AFPM #### [address] [address] Plant Protection Guard: Thor Hernández MD [address] [address] Plant Protection Guard: Tim Vizcarra MD #### FT3, TSH, FT4 #### [address] [address] Plant Protection Guard: Thor Hernández MD AFP, Maternalon 07-27-2023 Current Smoking INFORMATION NOT PROVIDED Normal [facility] Comment on above: Performed By: #### A AFPM #### [address] [address] Plant Protection Guard: Thor Hernández MD [address] [phone] Plant Protection Guard: Tim Vizcarra MD #### FT3, TSH, FT4 #### [address] [address] Plant Protection Guard: Thor Hernández MD [facility] Comment on above: Performed By: #### A AFPM #### [address] [address] Plant Protection Guard: Thor Hernández MD [address] [phone] Plant Protection Guard: Tim Vizcarra MD #### FT3, TSH, FT4 #### [address] [address] Plant Protection Guard: Thor Hernández MD Diabetic Negative [facility] Comment on above: Performed By: #### A AFPM #### [address] [address] Plant Protection Guard: Thor Hernández MD [address] [phone] Plant Protection Guard: Tim Vizcarra MD #### FT3, TSH, FT4 #### [address] [address] Plant Protection Guard: Thor Hernández MD Donor Egg INFORMATION NOT PROVIDED [facility] Comment on above: Performed By: #### A AFPM #### [address] [address] Plant Protection Guard: Thor Hernández MD [address] [address] Plant Protection Guard: Tim Vizcarra MD #### FT3, TSH, FT4 #### [address] [address] Plant Protection Guard: Thor Hernández MD Estimated Due Date 01/06/2024 [facility] Comment on above: Performed By: #### A AFPM #### [address] [address] Plant Protection Guard: Thor Hernández MD [facility] [address] [place] [address] Plant Protection Guard: Tim Vizcarra MD #### FT3, TSH, FT4 #### [address] [address] Plant Protection Guard: Thor Hernández MD Family History Negative [facility] Comment on above: Performed By: #### A AFPM #### [address] [address] Plant Protection Guard: Thor Hernández MD [facility] [address] [place] [address] Plant Protection Guard: Tim Vizcarra MD #### FT3, TSH, FT4 #### [address] [address] Plant Protection Guard: Thor Hernández MD In Vitro Fertalizat INFORMATION NOT PROVIDED [facility] Comment on above: Performed By: #### A AFPM #### [address] [address] Plant Protection Guard: Thor Hernández MD [facility] [address] [place] [address] Plant Protection Guard: Tim Vizcarra MD #### FT3, TSH, FT4 #### [address] [address] Plant Protection Guard: Thor Hernández MD LMP date 2023 [facility] Comment on above: Performed By: #### A AFPM #### [address] [address] Plant Protection Guard: Thor Hernández MD [facility] [address] [place] [phone] Plant Protection Guard: Tim Vizcarra MD #### FT3, TSH, FT4 #### [address] [address] Plant Protection Guard: Thor Hernández MD Maternal date 1990 [facility] Comment on above: Performed By: #### A AFPM #### [address] [address] Plant Protection Guard: Thor Hernández MD [address] [phone] Plant Protection Guard: Tim Vizcarra MD #### FT3, TSH, FT4 #### [address] [address] Plant Protection Guard: Thor Hernández MD Maternal Weight 239 [facility] Comment on above: Performed By: #### A AFPM #### [address] [address] Plant Protection Guard: Thor Hernández MD [address] [address] Plant Protection Guard: Tim Vizcarra MD #### FT3, TSH, FT4 #### [address] [address] Plant Protection Guard: Thor Hernández MD Monochorionic Twins Positive [facility] Comment on above: Performed By: #### A AFPM #### [address] [address] Plant Protection Guard: Thor Hernández MD [address] [address] Plant Protection Guard: Tim Vizcarra MD #### FT3, TSH, FT4 #### [address] [address] Plant Protection Guard: Thor Hernández MD Patient Weight Units LBS Normal [facility] Comment on above: Performed By: #### A AFPM #### [address] [address] Plant Protection Guard: Thor Hernández MD [address] [address] Plant Protection Guard: Tim Vizcarra MD #### FT3, TSH, FT4 #### [address] [address] Plant Protection Guard: Thor Hernández MD Race (Maternal) [facility] Comment on above: Performed By: #### A AFPM #### [address] [address] Plant Protection Guard: Thor Hernández MD [address] [address] Plant Protection Guard: Tim Vizcarra MD #### FT3, TSH, FT4 #### [address] [address] Plant Protection Guard: Thor Hernández MD Repeat Specimen INFORMATION NOT PROVIDED [facility] Comment on above: Performed By: #### A AFPM #### [address] [address] Plant Protection Guard: Thor Hernández MD [address] [address] Plant Protection Guard: Tim Vizcarra MD #### FT3, TSH, FT4 #### [address] [address] Plant Protection Guard: Thor Hernández MD Valproic/Carbamazep INFORMATION NOT PROVIDED [facility] Comment on above: Performed By: #### A AFPM #### [address] [address] Plant Protection Guard: Thor Hernández MD [address] [phone] Plant Protection Guard: Tim Vizcarra MD #### FT3, TSH, FT4 #### [address] [address] Plant Protection Guard: Thor Hernández MD Thyroxine, Freeon 07-27-2023 Thyroxine, Free 1.0 ng/dL Normal 0.92-1.68 [facility] Comment on above: Performed By: #### A AFPM #### [address] [address] Plant Protection Guard: Thor Hernández MD [address] [phone] Plant Protection Guard: Tim Vizcarra MD #### FT3, TSH, FT4 #### [address] [address] Plant Protection Guard: Thor Hernández MD Protein,Tot,[place] [facility] 2023 Creatinine [Mass/Vol] 273.0 mg/dL High 28.0-217.0 [facility] Comment on above: Performed By: #### U RTPRT #### [address] [address] Plant Protection Guard: Thor Hernández MD Tot Prot. Conc. 21 mg/dL Normal [facility] Comment on above: Result Comment: No n ormal range established. Performed By: #### U RTPRT #### [address] [address] Plant Protection Guard: Thor Hernández MD TP/Cre Ratio 0.08 Normal [facility] Comment on above: Performed By: #### U RTPRT #### [address] [address] Plant Protection Guard: Thor Hernández MD T3, Freeon 07-26-2023 Free T3 [Mass/Vol] 3.40 pg/mL Normal 2.00-4.40 [facility] Comment on above: Performed By: #### A AFPM #### [address] [address] Plant Protection Guard: Thor Hernández MD [facility] [address] [place], [place] [phone] Plant Protection Guard: Tim Vizcarra MD #### FT3, TSH, FT4 #### [address] [address] Plant Protection Guard: Thor Hernández MD Thyroid Stim. Horm.on 2023 Thyroid Stim. Horm. <0.01 Low 0.27-4.20 [facility] Comment on above: Performed By: #### A AFPM #### [address] [address] Plant Protection Guard: Thor Hernández MD [address] [address] Plant Protection Guard: Tim Vizcarra MD #### FT3, TSH, FT4 #### [address] [address] Plant Protection Guard: Thor Hernández MD ED Note-Physicianon 05-14-19 ED Note-Physician Basic Information [...] see dentistry until she is cleared by [employer]. She does not have an appointment for [employer] to next week. She has no OB [...] day(s), # 15 tab(s), Refills(s) 0, Pharmacy: [facility], 160, cm, 05/13/23 11:33:00 EST, Height/Length [...] Oral, q6hr Follow-up With When Contact Information [place] [facility] In 3 days 05/16/[address] [place] [phone] Business (1) Additional Instructions: Dentistry follow-up Patient Education [...] made to ensure accuracy, however, inadvertently computerized icing machine operator mistakes may be present. Appropriate healthcare PPE was used in evaluating this patient. Problem List/Past Medical History Ongoing Acute hepatitis C Anxiety Apnea, sleep Dental caries PCOS (polycystic ovarian syndrome) Historical No qualifying data Procedure/Surgical History Delivery. Medications Inpatient ampicillin-sulbacta m additive + Sodium Chloride 0.9% intravenous solution 100 (more content not included)... Normal [facility] Comment on above: Result Comment: Elec tronically Signed By: Greg Stratton PA-C\.br\Date and Time Signed: 05/13/23 12:45 EST\.br\Electronically Co-Signed By: Jonathan Martinez DO\.br\Date and Time Co-Signed: 05/14/23 07:40 EST Consent for Treatmenton Consent for Treatment [id number] EC#[id number] Normal [facility] Discharge Instructionson Discharge Instructions [id number]#1.00TIFF Normal [facility] ED Clinical Summaryon 2023 ED Clinical Summary [place] [id number] ED Clinical Summary Person Information Name: TIA MONROE Maria [facility] Age: 33 Years : 1990 Sex: Female Language: Egyptian PCP: Linda Sheppard DO Marital Status: Visit [...] 13:02:19 05/13/2023 13:02:19 05/13/2023 13:02:19 ADDRESS: [address] [facility] [id number] PHYS DOC NOTES: MEDICAL INFORMATION: Prescriptions Given: New Medications [facility], [address] [place], [place] [id number], [phone] oxycodone (oxyCODONE 5 mg Tab) 1 Tablets By Mouth every 6 hours for 3 Days. Refills: 0. Medications to Continue with No Changes Other Medications amoxicillin-clavula cnidi (Augmentin 875 mg oral tablet) 1 Tablets By Mouth every 12 hours for 7 Days. Refills: 0. chlorhexidine topical (Peridex 0.12% Liquid) 15 Milliliter By Mouth 2 times a day. (swish and spit; do not swallow). Refills: 0. metformin (Glucophage) 500 Milligram By Mouth every day. Non-Formulary Medication PATIENT EDUCATION INFORMATION: Instructions: Dental Abscess Follow up: With: Address: When: [place] [address] [place] [id number] [place] (1) In 3 days 05/16/2023 Comments: Dentistry follow-up DIAGNOSIS: Dental abscess Normal [facility] ED Patient Education Noteon 05-13-2023 ED [...] these instructions at home: Medicines ? Take wdob-icp-rwvbxng and prescription medicines only as told by [...] mouth. ? (more content not included)... Normal [facility] ED Patient Summaryon 024 ED Patient Summary [address] [address] Patient Discharge Instructions Person Information Name: TIA MONROE Age: 33 Years Arrival Date: 05/13/2023 11:19:01 Discharge Diagnosis: Dental abscess Primary Care Physician: Linda Sheppard DO Provider Information Primary Provider: Jonathan Martinez DO Advanced Traffic Lieutenant:Greg Stratton PA-C The exam and treatment you received in the Emergency Department were for an urgent problem and are not intended as complete care. It is important that you follow up with a doctor, nurse practitioner, or physician?s printing assistant for ongoing care. If your symptoms become worse or you do not improve as expected and you are unable to reach your usual health care provider, you should return to the Emergency Department. We are available 24 hours a day. TIA MONROE has been given the following list of patient education materials, prescriptions and follow-up instructions: Follow-up Instructions: With: Address: When: [place] [address] [address] Business (1) In 3 days 05/16/2023 Comments: Dentistry follow-up In the event that this physician does not participate in your insurance network, please consult with your insurance company to find a nearby participating provider. Patient Education Materials: Dental Abscess A MESSAGE TO ALL PATIENTS REGARDING OPIOIDS PRESCRIPTION OPIOIDS: WHAT YOU NEED TO KNOW Prescription opioids can be used to help relieve mbddcnba-ib-xvnzgv pain and are often prescribed following a [...] be struggling with addiction, tell your health cna caregiver and ask for guidance or call [facility]S National Helpline at 5-067-3 (more content not included)... Normal [facility] Discharge Instructionson Discharge Instructions [id number]#[id number] Normal [facility] ED Clinical Summaryon 2023 ED Clinical Summary [place] [id number] ED Clinical Summary Person Information Name: TIA MONROE [facility] Age: 33 Years : 1990 Sex: Female Language: Egyptian PCP: Linda Sheppard DO Marital Status: Visit [...] 23:59:00 05/11/2023 23:59:00 05/11/2023 23:59:00 ADDRESS: [address] [facility] [id number] PHYS DOC NOTES: MEDICAL INFORMATION: Prescriptions Given: New Medications [facility], [address], [place] [id number], [phone] amoxicillin-clavula cindi (Augmentin 875 mg oral tablet) [...] Medication PATIENT EDUCATION INFORMATION: Instructions: Dental Pain, Mioo-oy-Groc Follow up: With: Address: When: Linda Sheppard DO [address], [address], [address] [place] [address] In 3 days 05/14/2023 DIAGNOSIS: 1:Pain, dental; 2:Infected dental caries; 3:First trimester ; Periapical abscess without sinus Normal [facility] ED Note-Physicianon 05-12-19 ED Note-Physician Basic Information Time Seen: Selena HALL, Violet Damon 05/11/2023 22:59 Chief Complaint pt arrives for c/o dental pain on the right upper side. states cannot see her denitist d/t being . pt states seen in [place] [facility] and started on amoxcillin. History of Present Illness Patient is a 7-week 33-year-old female with history of PCOS that presents to the ED with her for evaluation of dental pain. Patient says pain started on Tuesday. She localizes it to the right upper jaw, radiates into her face ear and cheek. She went to [place] [facility] yesterday and was initiated on amoxicillin [...] day(s), # 14 tab(s), Refills(s) 0, Pharmacy: [facility] #16, 160, cm, 05/11/23 21:53:00 EST, Height/Length Dosing, 110, kg, 05/11/23 21:53:00 EST, Weight Dosing chlorhexidine topical, 0.018 gm, 15 mL, Oral, BID, 480 mL, Refill(s) 0, (swish and spit; do not swallow), [facility] #16, 160, cm, 05/11/23 21:53:00 EST, Height/Length Dosing, 110, kg, 05/11/23 21:53:00 EST, Weight Dosing (more content not included)... Normal [facility] Comment on above: Result Comment: Elec [...] these instructions at home: Medicines ? Take uwte-ggd-caplgry and prescription medicines only as told by [...] to the area. Brushing your teeth ? [place] your teeth twice a day using a [...] when you eat or drink. ? Take apip-mbx-mbifqng and prescription medicines only as told by your dentist. ? Watch your dental pain for any changes. Let your dentist know if symptoms get worse. This information is not intended to replace advice given to you by your health care provider. Make sure you discuss any questions you have with your health care provider. Document Revised: 11/26/2020 Document Reviewed: 11/26/2020 [employer] Patient Education ? 2022 [employer] Normal [facility] ED Patient Summaryon 024 ED Patient Summary [place] [id number] Patient Discharge Instructions Person Information Name: TIA MONROE Age: 33 Years Arrival Date: 05/11/2023 21:25:54 Discharge Diagnosis: 1:Pain, dental; 2:Infected dental caries; 3:First trimester ; Periapical abscess without sinus Primary Care Physician: Linda Sheppard DO Provider Information Primary Provider: Zac Fields M.D. Advanced Traffic Lieutenant:Violet Walters PA-C The exam and treatment you received in the Emergency Department were for an urgent problem and are not intended as complete care. It is important that you follow up with a doctor, nurse practitioner, or physician?s printing assistant for ongoing care. If your symptoms [...] With: Address: When: Linda Sheppard DO [address], [address] [place] [address] In 3 days 05/14/2023 In the event that this physician does not participate in your insurance network, please consult with your insurance company to find a nearby participating provider. Patient Education Materials: Dental Pain, Akzg-hs-Lowx A MESSAGE TO ALL PATIENTS REGARDING OPIOIDS PRESCRIPTION OPIOIDS: WHAT YOU NEED TO KNOW Prescription opioids can be used to help relieve hieprkxs-su-rcqbch pain and are often prescribed following a [...] be struggling with addiction, tell your health cna caregiver an (more content not included)... Normal [facility] Consent for Treatmenton 03-0 Consent for Treatment [id number] 4 [id number] [facility] Progesteroneon 12-28-2022 Progesterone 12.60 ng/mL [facility] Comment on above: Result Comment: Female: Follicular phase <0.19 ng/mL Ovulation phase 0.06-4.14 ng/mL Luteal phase 4.11-14.5 ng/mL Postmenopausal <0.13 ng/mL Performed By: #### P NICKY #### [employer] [address] [place] [address] Plant Protection Guard: Thor Hernández MD Progesteroneon 11-24-2022 Progesterone 7.18 ng/mL High 0.0-0.15 [facility] Comment on above: Result Comment: Female: Follicular phase <0.19 ng/mL Ovulation phase 0.06-4.14 ng/mL Luteal phase 4.11-14.5 ng/mL Postmenopausal <0.13 ng/mL Performed By: #### P NICKY #### [facility] [address] [place] [address] Plant Protection Guard: Thor Hernández MD HCG, ,Urineon 09-04 Beta HCG ( test) Ql (U) Negative Normal NEG [facility] Comment on above: Performed By: #### U HCG #### [facility] [address] [place], [place] [id number] Plant Protection Guard: Guero Sandoval MD , Urineon HCG ( test) Ql (U) Negative NEGATIVE [facility] XR ANKLE RIGHT (MIN 3 VIEWS) [...] Bettye Johnson MD 09/04/22 Final result Normal [facility] FINDINGS/IMPRESSION : No acute displaced fracture identified. Ankle mortise is symmetric. There is a 1 mm tiny calcified body which is remote appearing near the distal fibular tip. Minimal ankle soft tissue edema. [facility] EXAM: XR ANKLE RIGHT (MIN 3 VIEWS) INDICATION: Reason for exam:->swelling COMPARISON: None. TECHNIQUE: Radiographs as described above [facility] Bettye Johnson MD - 09/04/2022 EXAM: XR ANKLE RIGHT (MIN 3 VIEWS) INDICATION: Reason for exam:->swelling COMPARISON: None. TECHNIQUE: Radiographs as described above IMPRESSION: FINDINGS/IMPRESSION : No acute displaced fracture identified. Ankle mortise is symmetric. There is a 1 mm tiny calcified body which is remote appearing near the distal fibular tip. Minimal ankle soft tissue edema. [facility] Radiology Study observation (narrative) [facility] XR ANKLE RIGHT (MIN 3 VIEWS) Ordered By: Bettye Johnson on 09-04-2022 [facility] Work Phone: Coding Summary.on 07-09-2022 Coding Summary. CD:[id number] bWw+PGhlYWQ+XS3WPDN tD81zvVDpiE7zH3QGEJ lOSywgQVBQTElOSyIgb bRdXM6xgTLrMOMm IC8+LC8aLZDeTczvzSD gt6S7tTW8Z09pie0rPZ qzyGB9TWOqOlOtwjvdr 6nwtXc1NOrfEzxvOjDf DXBlaT61NTW7bX54Jz1 0nVDvjZVpv1bnnSq2Ga LhKWWdSLX7yWwaKSgpt 4QfLTHcR68uiLDav5R0 IGNvbGxhcHNlOyBlbXB 6mB8uKPegmwosb1kngc zgRjz7vz55fUZgh3T4p WH5O2FeejX3ZGOpgJQc BvddeJXOpY3qiaewb7d fpsqxIeHiRFRiWHe1KL d7ZPPpqFijBtLkJE45W CA1VOXmpgPgZ7BpBOLl dZzqQzG8n5O4Da7YW2N NCzemI2GTFNLWJJcyzG Q+WR07ws69Q3WyEzhaZ wd9TEDaJWD7hQY3sY6m EGGmNLcrj1D1fRG7O6G bbrWfmj8di2ozZUPwRN knP33tfHDec2H1MMElz FO9VQEwyPmuZoCnrC38 Oyc+OBDydYdur4WrGhj sx8wxm8yhiFk1OmwhNU LqxmPuiIfvUVO8p4GsO i6tRLQdgWU2jML6tO8x YdWhPcU1YYlxY773GpR ytEFvMpsdR15nY8DfsA A+CFTnQfk4PJTnqXyzR J1uE8FqXYXkvyskfISa bKnjCZ4rGDFndtzpEGX weT7hYODxD4n6UnKzYv P8IFlxE1TnTGFknkwvN c82iF3aUhUsBrV1YAcp F2EnxrD7ERImoHEjQQa hHIT6M94gi8D6EPKmDU EzAZQ9vXC2cP8dkJhvs jogbGVmdDsgdmVydGlj IDvhRXyfY321PNDunHe nPkNvZGluZyBEYXRlOi AgMDUvMDUvMjAyMzwvd GQ+SQFoZBM1cVvpKQWl oTDmVClvBg5eqVqdjFh rYA3bIAWelvcwGKSpbI 9aDBUbpFFdzEhrTS0aR WAzqxayq610FdQtYHZ2 YAVwjQKxJ2XleN0kQiD iURYyHKVsB9AhxZEmXI xzT163EQgbJhY2EXXcj cKhF9VwSSUjqSwlZqR9 d0F8Yo6Fa0PziihuA0Z oxMKlBzDhVulsMNf5X0 RkPjwvdHI+WZ83NFWbL S41MJs2XKB2mKypZBoa SRMvC7MdsH8lXcNhLYL kZGRkOyc+PHRhYmxlIH dpZHRoPScxMDAlJyBzd RlwJM7lUm2hQAIgCYCm nKpuwIFiAxQtk9crQKO sUXbdMV6xsDciC8HbhC A6DPEex0o5Vp38Q85cJ 3JvdXA+PBKomRR4nZV0 mJ8xVoXwDbG1RByzT85 4XrVtjYEzZyspa8mnp4 ospOa2MmZ1IRMwriWme JnrXSJ5e8JcHz28G14n IHdpZHRoPSIxNSUiIHZ ifIwwmi2waY3iRy4+PG TuvDU2oOG6yF7hKcCrQ nQ0VVhkK858YiZgoUMe Dnxde7hja8ixoWj6HsS aVCTnhxCkcZscYVR5r2 EkOz21Y4SdxWcxw2ZoN yu3hh05zAGjz7L4eVZ1 M9JqGVTplsrdtPKpcRl mSL1dUXEiwkqjILMsrX 8iQWKwT1d9DxJlZpZ1N UveQ7AvmuE6WXJsfQRn HTLbeMGEhO9oecowq4g gayadAnEhFGThDIx0AG y9IZIrdBrhCaNeODT1I jH0VBJ0pFOqxQ6amZnt toymhJ8qZbq+NMF9aME fhBLVMP8wWnifdQM+PH NkXCM7eUssZYocDTGbm P4tPYUmG8b6GqWpRdY4 KRiwO8FmlnL1AMTqtNE vZOTtmMZXkT2otjtzi9 yacsgnWhJcQJWcJYu7D Qi9WHIerPdtQmKqZFD9 UeK2BYX9aPBxnR4tiAb pxaataA7pLpl+QmlydG jkQNZ1QKw9T6WgUqb1U JMnlGzjVX0slJWtVMlk Iq9voPdmeLboHB0qACM mkofub704ZnKnk7cwGN CxbFXvHIalSIR0B64yx 1Q1HPLkCBRlMOJ6xSQ9 kF3lhOnlgzoooAEmsZc gdmVydGljYWwtYWxpZ2 86TFRwcYxwMgOlGGm1G 0KmYae7YYXmpHnkHD7s tZOzXHegVl8veNymmSk uCL6tOKLcydlfb316Iv Ncs7ttTWMjrYBbDXxgQ HZ4I01fz1Z7HQYaGIPk JUW7rQV8hI6kmHspfhb gbGVmdDsgdmVydGljYW pkHOviE248DPTwbNjxP yNhzAu7U2FhNey7QPYf aKdvGH7faMTxRHziNm6 xeXzzeTlsQB1bQCHcsh ngd240LqHev5ljQBPha WXtSHhzEYF0Q57bd2W6 KVHvLGNlZQV8gVV7eV8 hbGlnbjogbGVmdDsgdm QooBnaIFxvNOtrK498Y HRvcDsnPlBhdGllbnQg OLtrEUp8O8FsUkgwjEP +OJ28BIRpOH22qYTugV Wfq0ypmYa3PsHmLXHyG XB6eWspNOzqd3YvCIUd E42vaBDrh3S6PADksAv jtLAtHxUmnMR3yF9qWY dyvgrgm8fvlgbdTmmvs 5fkzf65lE20W70hOQpn ZHRoPSIzMCUiIHZhbGl htq3qrX3nLx8+PGNvbC T0dME0xB1yNLDlFoH2Y AfmL057FuKozIXuQzne o0hrd5ehvRd1EsO5JUB tdvWyiHpvRUQ5q2AcKu 98J26fRGbiSWIiPYBqG IEhHEVxsRqftu5vrL6c Ii8+XOKoaOS2fUE6gG1 sDfUnOnH2VTswV031Am QgkMEfStglD47rK1Zyq XA+NTMjKgd9SKFqyVus AE7uuFHwSNciUr1oYWG 2MkKzEqFgRVguQ3FaED CopmsknqwwvRB8XTTjO BXsqN17Vn3krRdrUWGr yWVHaN3ruscss1alcth nSwHtBVAqVLw6JSz7TI AyzWoaReQfWMK8UuB3X MB4aNKwkP7uxStzwzdz aG5wX4CoZMYhgtedPz4 7kE1fUmSjIkJ1EZxmQs c+Lv1IRyUSKwuoPnEID kRJRTwvdGQ+PHRkIHN0 aDopBOrtBHOfdO1pSQC sU5h2KmMiYpX2ABjyJ1 SdBNTlcwoiCh79pD3eZ eYnAnX4ODjlV9SimxK8 XDRzfMMvMFnzJKL2S96 ft9H3WXGvDVWbMGR0eH O4mB0xkUjedztjlHYnm DsgdmVydGljYWwtYWxp L120VWZcvWcdRsRjQlG 6KbG1URM3E1UsPvf9GW BgyScnNU6syINgHFqzV s6qqNncwZkiSO7nATVn dcobVENqvW2zHMUblGG eqRfoQQ3rIAYgtxsqa6 83BiKmNGP1SNQihFIpC 0PxtJ2uKbZfLBAyXZLq W6GapIOjVJktN807MFq yTtR7HXMdtpRoW4JaRX OduYnbExJ0n5U4Rp7lE iBZZWFyczwvdGQ+PHRk PNI0zCtdVNvjNNVxvU5 cKCOuV3f1NhHkPcG4NR mxQ4NaJDFurwcuZa52a Y7dGlNuFiR9AVbzW4Xj orO4GYRvaIMsDExfYQG 5F06sr3Y8UWIrBBOxEM D2yQH0fF7srQwwrsdgk GVmdDsgdmVydGljYWwt AGsnT006KVDygSyaKaN lbWFsZTwvdGQ+PHRkIH Q0gRfbOCfcDHNywO4dI YAfH7c2AuGiVkS0AImt S0WlEJAsyvtjDy08gI1 rNfJqFaD1HQcdZ8Lqqe Y9MMMhkEAnGWntYEQ0D 12yq5F6YPJiGKSkCNO2 qOM8eS8zuBccucbguME mdDsgdmVydGljYWwtYW grN988DJXyzUbqVqTqo V0mCVFlQSdvoZNstRmr dGQ+VI12hc33O1OwWdy eSri0YDNhWNQ4cMR6cE 3mEGGaMLkrb1X3nII5I 8VvonQfbn6xe8mvBMZa ASzmJ38zcCWkw4V7IIZ bgIO8VJRisDkzQcApiQ 93Oyc+UVRgxHipu1VdJ rkbe6wkp4kcxFz2TxCd XYYtwvIcvYjzUNC1v7Q jVg11T71sMUngNYUuFY MpONChXFCjoCubry6sb G9wIi8+XEHnkMG7eOE8 kL2tAwXuSpW0TOwhZ64 4RcObiGIcCjxny3twb0 myjYn0VmYoDXKlemTvb GafNVY3g9ViNo81Z5Sj zAxox5TgDnw0gh82zSN wa8O3uUG9L3QdQLNjuy ipcOUmoZkoTK2oPZGzw szrELNexI2sDZIkF2v0 PbNcGvM8AAwlV4XefdH 6IGJvbGQgMTBwdCBUaW 3jbiwlz9cwwwqgXaSrV RSdXKk7FXk6HYUayBck OlRnCCT2WzT0KOU8cTY ivP1cfXqxlzocrK4wKa c+ZTl2f3jgnIDmYD3jk JJ1UJ70ZM84uMVtt7Y2 wOF7I9RdZOFukfkqlom cyZE7IIMsDWKutF07Lu 0inFneQo3mQAKoVAY9P QBvrRJwJ6XcyG6oVzCr XRKeWIHyH1WajFPgEIy iQ883ATuoHvO3YLCcqv DvO8DgRGJlxYqlWnW6v 1Q2Dv1BSY26TU43AI71 pSObh2Z0uKI0H1YtGCN erlmaxelspJL0JSQhDU CmoJ77Wy5sjObdFy0eK LEoCPH3RUGqsYMlI0Sk pW8hVoUoADAuXZGeN5Y hvOXaIAqhM205ANzhKy G7NJQuakJyN6DiSHPuo ZshBaQ5x4W3Fh1RPw83 HM91IR38cUBqw9X9zZM 4D5JzJSWzwdbyabgxhZ K4DPIvUGZzpM07Ck2po UtoSx7dFSCaFHE0ASZy pHGaY3ZjaY0gFoSpWGA wNOZrF6KnwYUpMArvI9 56TPjnWmB1JIJlbvEfN 4OxBFUmwKdeRwB3p8K6 Qh2UXGqamxg4Q1UcLyv vdHI+DS64MQVrHA58kU WszNQks0tphNd7XbXrN WIhKUP5cBfuVMddo9Qf VARhT13h (more content not included)... Normal [facility] Consultation Noteon 07-07-19 Consultation Note Patient: [...] Problems Acute hepatitis C / SNOMED CT 766970397 / Confirmed Anxiety / SNOMED CT 06187540 / Confirmed Apnea, sleep / SNOMED CT 942909428 / Confirmed Dental caries / SNOMED CT 700422013 / Confirmed PCOS (polycystic ovarian syndrome) / SNOMED CT 969359114 / Confirmed Histories Past Medical History: Active Dental caries (653813005) Family History: No family history items have [...] Charted Heart Rate Peripheral 73 bpm (JUN 29 09:49) SBP 113 mmHg (JUN 29 09:49) DBP L 57mmHg (JUN 29 09:49) Weight 115.6 kg (JUN 29 09:49) BMI 45.04 (JUN 29 09:49) Constitutional: No acute distress. Well-nourished. Well-developed. Eyes: [...] Patient agrees with plan of care. Normal [facility] Comment on above: Result Comment: Elec tronically Signed By: Bing PEDRAZA, Todd Lilly\.br\Date and Time Signed: 07/06/22 13:28 EDT DHEA SERUMon 07-04-2022 Dehydroepiandrosterone (DHEA) 220 ng/dL Normal 31-701 [facility] Comment on above: Performed By: #### Vijaya OMER. ####[facility] [id number] [place], [place] [address]XsDr. Nito Sanchez DHEA-SULFATEon 06-30-2022 DHEA-Sulfate 106.0 ug/dL Normal 84.8-378.0 [facility] Comment on above: Performed By: #### Vijaya TATUM ####[facility] [address] [place], [place] [address]CcDr. Nito Sanchez FSHon 06-30-2022 FSH 6.6 mIU/mL Normal [facility] Comment on above: Result Comment: Adul t Female: Follicular phase 3.5 - 12.5 Ovulation phase 4.7 - 21.5 Luteal phase 1.7 - 7.7 Postmenopausal 25.8 - 134.8 Performed By: #### [facility] #### [facility] [address] [place], [place] [address] Dr. Nito Sanchez LUTEINIZING HORMONE (LH)on 0 06-30-2022 LH 18.9 mIU/mL Normal [facility] Comment on above: Result Comment: Adul t Female: Follicular phase 2.4 - 12.6 Ovulation phase 14.0 - 95.6 Luteal phase 1.0 - 11.4 Postmenopausal 7.7 - 58.5 Performed By: #### L BCLH #### [facility] [address] [place] [address] Dr. Nito Sanchez PROLACTINon 06-30-2022 Prolactin 5.3 ng/mL Normal 4.8-23.3 [facility] Comment on above: Performed By: #### P ROLAC #### [facility] [address] [place] [address] Dr. Nito Sanchez CBC AUTO DIFFon 06-29-2022 BASO # 0.1 103/ul Normal 0.0-0.1 [facility] Comment on above: Performed By: #### C BC #### [facility] [address] [place] [address] Dr. Nito Sanchez Basophils/100 WBC (Bld) 0.5 % Normal 0.2-2.0 [facility] Comment on above: Performed By: #### C BC #### [facility] [address] [place] [address] Dr. Nito Sanchez EO # 0.2 103/ul Normal 0.0-0.7 [facility] Comment on above: Performed By: #### C BC #### [facility] [address] [place] [address] Dr. Nito Sanchez Eosinophils/100 WBC (Bld) 1.6 % Normal 0.9-7.0 [facility] Comment on above: Performed By: #### C BC #### [facility] [address] [place] [address] Dr. Nito Sanchez Erythrocyte distribution width (RBC) [Ratio] 13.6 % Normal 11.0-15.0 [facility] Comment on above: Performed By: #### C BC #### [facility] [address] [place] [address] Dr. Nito Sanchez Hematocrit (Bld) [Volume fraction] 39.7 % Normal 36.0-48.0 [facility] Comment on above: Performed By: #### C BC #### [facility] [address] [place] [address] Dr. Nito Sanchez Hemoglobin (Bld) [Mass/Vol] 13.1 g/dL Normal 12.0-16.0 [facility] Comment on above: Performed By: #### C BC #### [facility] [address] [place] [address] Dr. Nito Sanchez IG # 0.05 10e3/ul Critically high 0.00-0.03 [facility] Comment on above: Performed By: #### C BC #### [facility] [address] [place] [address] Dr. Nito Sanchez IG % 0.5 % Normal 0.0-0.5 [facility] Comment on above: Performed By: #### C BC #### [facility] [address] [place] [address] Dr. Nito Sanchez LYMPH # 2.6 103/ul Normal 1.2-3.8 [facility] Comment on above: Performed By: #### C BC #### [facility] [address] [place] [address] Dr. Nito Sanchez Lymphocytes/100 WBC (Bld) 25.3 % Normal 20.5-60.0 [facility] Comment on above: Performed By: #### C BC #### [facility] [address] [place] [address] Dr. Nito Sanchez MANUAL DIFF REQ NO Normal [facility] Comment on above: Performed By: #### C BC #### [facility] [address] [place] [address] Dr. Nito Sanchez MCH (RBC) [Entitic mass] 27.1 pg Normal 26.7-34.0 [facility] Comment on above: Performed By: #### C BC #### [facility] [address] [place] [address] Dr. Nito Sanchez MCHC (RBC) [Mass/Vol] 33.0 g/dL Normal 29.9-35.2 [facility] Comment on above: Performed By: #### C BC #### [facility] [address] [place] [address] Dr. Nito Sanchez MCV (RBC) [Entitic vol] 82.2 fL Normal 81.0-99.0 [facility] Comment on above: Performed By: #### C BC #### [facility] [address] [place] [address] Dr. Nito Sanchez MONO # 0.5 103/ul Normal 0.3-0.8 [facility] Comment on above: Performed By: #### C BC #### [facility] [address] [place] [address] Dr. Nito Sanchez Monocytes/100 WBC (Bld) 5.0 % Normal 1.7-12.0 [facility] Comment on above: Performed By: #### C BC #### [facility] [address] [place] [address] Dr. Nito Sanchez NEUT # 6.9 103/ul Critically high 1.4-6.5 [facility] Comment on above: Performed By: #### C BC #### [facility] [address] [place] [address] Dr. Nito Sanchez Neutrophils/100 WBC (Bld) 67.1 % Normal 43.0-75.0 [facility] Comment on above: Performed By: #### C BC #### [facility] [address] [place] [address] Dr. Nito Sanchez Platelet mean volume (Bld) [Entitic vol] 10.0 fL Normal 9.5-13.5 [facility] Comment on above: Performed By: #### C BC #### [facility] [address] [place] [address] Dr. Nito Sanchez PLT 313 103/ul Normal 150-450 [facility] Comment on above: Performed By: #### C BC #### [facility] [address] [place] [address] Dr. Nito Sanchez RBC 4.83 106/ul Normal 4.20-5.40 [facility] Comment on above: Performed By: #### C BC #### [facility] [address] [place] [address] Dr. Nito Sanchez WBC 10.3 103/ul Normal 4.0-11.0 [facility] Comment on above: Performed By: #### C BC #### [facility] [address] [place] [address] Dr. Nito Sanchez Consent for Treatmenton 06-06 Consent for Treatment [id number] 3 [id number] 650#1.00CD:127 Normal [facility] FREE T4on 06-29-2022 Free T4 [Mass/Vol] 1.01 ng/dL Normal 0.76-1.46 [facility] Comment on above: Performed By: #### F T4 #### [facility] [address] [place] [address] Dr. Nito Sanchez GLYCOHEMOGLOBIN A1Con 2022 ADA RECOMMENDATION SEE BELOW Normal [facility] Comment on above: Result Comment: ADA RECOMMENDED LIMIT 4.0 - 6.0 ADA THERAPEUTIC TARGET < 7.0 ACTION SUGGESTED > 7.0 Performed By: #### A 1C #### [facility] [address] [place] [address] Dr. Nito Sanchez Glucose [Mass/Vol] 108 mg/dL Normal [facility] Comment on above: Performed By: #### A 1C #### [facility] [address] [place] [address] Dr. Nito Sanchez HbA1c (Bld) [Mass fraction] 5.4 % Normal 4.5-6.2 [facility] Comment on above: Performed By: #### A 1C #### [facility] [address] [place] [address] Dr. Nito Sanchez HIPAA Forms Officeon 023 HIPAA Forms Office [id number] 602#1.00CD:127 Normal [facility] Legal Correspondence Officeo n 06-29-2022 Legal Correspondence Office 121.. [id number] 270#1.00CD:127 Normal [facility] Legal Correspondence Office [id number] 787#1.00CD:127 Normal [facility] Office/Clinic Note-Physician on 06-29-2022 Office/Clinic Note-Physician . [id number] 515#1.00CD:127 Normal [facility] Orders Officeon 06-29-2022 Orders Office [id number] 642#1.00CD:127 Normal [facility] PREG QUANT HCGon 06-29-2022 HCG QUANT 1 mIU/mL [facility] Comment on above: Performed By: #### T BERNICE, PREGQNT #### [facility] [address] [place] [address] Dr. Nito Sanchez HCG RANGE SEE BELOW [facility] Comment on above: Result Comment: 5-50 0.2-1 WEEK 50-500 1-2 WEEKS 100-5,000 2-3 WEEKS 500-10,000 3-4 WEEKS 1,000-50,000 4-5 WEEKS 10,000-100,000 5-6 WEEKS 15,000-200,000 6-8 WEEKS 10,000-100,000 2-3 MONTHS Performed By: #### T BERNICE, PREGQNT #### [facility] [address] [place] [address] Dr. Nito Sanchez Patient Correspondenceon Patient Correspondence .. 30 [id number] 946#1.00CD:127 Normal [facility] Patient Correspondence .81. 30 [id number] 137#1.00CD:127 Normal [facility] Patient Correspondence .. 30 [id number] 273#1.00CD:127 Normal [facility] Patient Correspondence . 30 [id number] 879#1.00CD:127 Normal [facility] Patient Correspondence [id number] 30 [id number] 956#1.00CD:127 Normal [facility] Patient History Officeon Patient History Office [id number] 30 [id number] 983#1.00CD:127 Normal [facility] Patient History Office [id number] 30 [id number] 721#1.00CD:127 Normal [facility] Radiology Outside Office Client Account Manager yon 06-29-2022 Radiology Outside Office Copy [id number] 142#1.00CD:127 Normal [facility] TSHon 06-29-2022 TSH 0.848 uIU/mL Normal 0.358-3.740 [facility] Comment on above: Performed By: #### T , PREGQNT #### [facility] [address] [place] [address] Dr. Nito Sanchez US PELVIS AND TRANSVAGon [...] by: BETTYE DANIELS Date: 2022-06-29 15:17 Normal [facility] PAP ACOG PANEL 2: 30 to 65on 06-19-2022 . . Normal [facility] Comment on above: Result Comment: Perf ormed at: WB Performed By: #### [id number] #### [facility] [address] [place] [address] Dr. Nito Sancehz Age Gdln ACOG Testing 30-65 [facility] Comment on above: Performed By: #### [id number] #### [facility] [address] [place] [address] Dr. Nito Sanchez DIAGNOSIS: Comment Normal [facility] Comment on above: Result Comment: NEGA TIVE FOR INTRAEPITHELIAL LESION OR MALIGNANCY. Performed at: WB Performed By: #### [id number] #### [facility] [address] [place] [address] Dr. Nito Sanchez HPV Aptima Negative Normal Negative [facility] Comment on above: Result Comment: This nucleic acid amplification test detects fourteen high-risk HPV types (16,18,31,33,35,39,45,51,52,56,58,59,66,68) without differentiation. Performed at: =G Performed By: #### [id number] #### [facility] [address] [place] [address] Dr. Nito Sanchez HPV Genotype Reflex Comment Normal [facility] Comment on above: Result Comment: Crit eria not met, HPV Genotype not performed. Performed at: WB Performed By: #### [id number] #### [facility] [address] [place] [address] Dr. Nito Sanchez Methodology: Comment Normal [facility] Comment on above: Result Comment: This liquid based ThinPrep(R) pap test was screened with the use of an image guided system. Performed at: WB Performed By: #### [id number] #### [facility] [address] [place] [address] Dr. Nito Sanchez Note: Comment Normal [facility] Comment on above: Result Comment: The Pap smear is a screening test designed to aid in the detection of premalignant and malignant conditions of the uterine cervix. It is not a diagnostic procedure and should not be used as the sole means of detecting cervical cancer. Both false-positive and false-negative reports do occur. . Performed at: WB Performed By: #### [id number] #### [facility] [address] [address] [address] Nito Sanchez Performed by: Comment Normal [facility] Comment on above: Result Comment: Nanda Treadwell, [employer] Operator (ASCP) Performed at: WB Performed By: #### [id number] #### [facility] [address] [address] [address] Nito Sanchez Specimen adequacy: Comment Normal [facility] Comment on above: Result Comment: Sati sfactory for evaluation. Endocervical and/or squamous metaplastic cells (endocervical component) are present. Performed at: WB Performed By: #### [id number] #### [facility] [address] [address] [address] MAXILLOFACIAL WO CONTRAST [...] Phil Mary MD 05/11/22 Final result Normal [facility] Recent extraction of the right mandibular and maxillary second molar teeth with presence of air in the respective tooth sockets. No evidence of edema in the sublingual space or the buccal space Probable periapical abscess involving the right maxillary premolar tooth adjacent to the first molar tooth. [facility] EXAM: CT MAXILLOFACIAL WO CONTRAST HISTORY: [...] visualized intracranial contents show no acute process. [facility] Phil Mary MD - 05/11/2022 EXAM: [...] tooth adjacent to the first molar tooth. [facility] [employer] Work Phone: Radiology Study observation (narrative) [facility] [employer] Work Phone: CT MAXILLOFACIAL WO CONTRAST Ordered By: Phil Mary on 05-11-2022 [facility] Work Phone: HCG, ,Urineon 05-11 Beta HCG ( test) Ql (U) Negative Normal NEG [facility] Comment on above: Performed By: #### U HCG #### [facility] [address] [place] [address] [employer]: Guero Sandoval MD Urine Preg (Lab)on 3 Beta HCG ( test) Ql (U) Negative NEGATIVE [facility] HCG, Quantitative, on 03-29-2022 hCG Quant NINF [facility] Comment on above: Non-preg premeno <=5 Postmeno <=8 Male <=3 If HCG results do not concur with clinical observations, additional testing to confirm results is recommended. [facility] COVID-19, Rapidon 07-22-2021 SARS-CoV-2 (COVID-19) RNA KALPESH+probe Ql (Unsp spec) Not detected Not Detected [facility] Comment on above: Rapid NAAT: The [...] management decisions. Fact sheet for Healthcare Providers: https://www.fda.gov/media/497342/download Fact sheet for Patients: https://www.fda.gov/media/615011/download Methodology: Isothermal Nucleic Acid Amplification Specimen Description .NASOPHARYNGEAL SWAB [facility] Strep Screen Group A Throato n 07-22-2021 S. pyogenes Ag Ql (Throat) Negative NEGATIVE [facility] Comment on above: Rapid Strep A negati ve. A negative Rapid Group A Strep Screen result does not rule out the possibility of Group A Streptococci in the specimen. A Group A Strep DNA test is available upon request. Source .THROAT SWAB [facility] MR LUMBAR SPINE WITHOUT CONT Janay 06-17-2021 MR LUMBAR SPINE WITHOUT CONTRAST EXAMINATION: [...] foraminal stenosis. 2. No fracture or spondylolisthesis. [facility] Workstation ID: [id number] Dictated by: JONATHAN LINARES on TueJun 18, 2021 11:51:00 AM EDT Transcribed by: ZULMA CARDENAS on TueJun 18, 2021 11:58:13 AM EDT Finalized by: JONATHAN LINARES on TueJun 18, 2021 12:35:45 PM EDT [facility] Comment on above: Order Comment: Injur y/Trauma or Illness?:Illness/Other How long have you had these symptoms (acute/chronic)?:Chronic Reason for exam?:LBP AND bilat hip pain x years, nki Type of Exam?:Subsequent/Follow-up Additional signs and symptoms?:. CBC panel Auto (Bld)on 04-16 Erythrocyte distribution width (RBC) [Entitic vol] 14.0 % 11.6 - 14.8 % [facility] Hematocrit (Bld) [Volume fraction] 38.6 % 36.0 - 46.0 % [facility] Hemoglobin (Bld) [Mass/Vol] 12.1 g/dL 12.0 - 16.0 g/dL [facility] Interpretation and review of laboratory results Abnormal [facility] MCH (RBC) [Entitic mass] 25.4 pg Low 26. 0 - 34.0 pg [facility] MCHC (RBC) [Mass/Vol] 31.3 g/dL 31.0 - 37.0 g/dL [facility] MCV (RBC) [Entitic vol] 81.1 fL 80.0 - 100.0 fL [facility] Platelet mean volume (Bld) [Entitic vol] 10.0 fL 9.4 - 12.4 fL [facility] Platelets (Bld) [#/Vol] 379 10*3/uL [facility] RBC (Bld) [#/Vol] 4.76 10*6/uL [facility] WBC (Bld) [#/Vol] 9.85 10*3/uL [facility] Comprehensive metabolic 2000 panelon 04-16-2021 Albumin [Mass/Vol] 3.7 g/dL 3.2 - 5.2 g/dL [facility] ALP [Catalytic activity/Vol] 95 U/L 40 - 140 U/L [facility] ALT [Catalytic activity/Vol] 36 U/L 14 - 65 U/L [facility] Anion gap [Moles/Vol] 11 mmol/L 10 - 2 0 mmol/L [facility] AST [Catalytic activity/Vol] 22 U/L 0 - 45 U/L [facility] Bilirubin [Mass/Vol] 0.3 mg/dL 0.0 - 1 .3 mg/dL [facility] Calcium [Mass/Vol] 9.3 mg/dL 8.4 - 10. 2 mg/dL [facility] Chloride [Moles/Vol] 105 mmol/L 98 - 10 8 mmol/L [facility] Creatinine [Mass/Vol] 0.68 mg/dL 0.40 - 1.10 [facility] GFR/1.73 sq M.predicted CKD-EPI (S/P/Bld) [Vol rate/Area] 117 >=60 mL/min/1.73 m2 [facility] Glucose [Mass/Vol] 76 mg/dL 65 - 99 mg/dL [facility] HCO3 [Moles/Vol] 26 mmol/L 21 - 32 mmol/L [facility] Interpretation and review of laboratory results Normal [facility] Potassium [Moles/Vol] 4.2 mmol/L 3.5 - 5.1 mmol/L [facility] Protein [Mass/Vol] 7.5 g/dL 6.0 - 8.0 g/dL [facility] Sodium [Moles/Vol] 138 mmol/L 135 - 145 mmol/L [facility] Urea nitrogen [Mass/Vol] 13 mg/dL 8 - 25 mg/dL [facility] Urea nitrogen/Creatinine [Mass ratio] 19.1 mg/mg [facility] The eGFR should be used for monitoring renal function only and not for medication dosing. [facility] Lipid 1996 panelon 2 Cholesterol [Mass/Vol] 195 mg/dL 100 - 199 mg/dL [facility] Comment on above: National Cholesterol Education Program Guidelines: Cholesterol Desirable: <200 mg/dL Borderline High: 200-239 mg/dL High: greater than or equal to 240 mg/dL Cholesterol in HDL [Mass/Vol] 56 mg/dL 40 - 59 [facility] Comment on above: National Cholesterol Education Program Guidelines: HDL Cholesterol Low: <40 mg/dL Near Optimal: 40-59 mg/dL High: greater than or equal to 60 mg/dL Cholesterol in LDL [Mass/Vol] 109 mg/dL 10 - 130 mg/dL [facility] Comment on above: National Cholesterol Education Program Guidelines: LDL Cholesterol Optimal: <100 mg/dL Near Optimal/above Optimal: 100-129 mg/dL Borderline High: 130-159 mg/dL High: 160-189 mg/dL Very High: greater than or equal to 190 mg/dL Cholesterol non HDL [Mass/Vol] 139 mg/dL [facility] Comment on above: National Cholesterol Education Program Guidelines: NON HDL Cholesterol Desirable: <130 mg/dL Borderline High: 130-159 mg/dL High: 160-189 mg/dL Very High: > or = 190 mg/dL Cholesterol.total/Cholest elton in HDL [Mass ratio] 3.5 {ratio} ratio [facility] Comment on above: Female Cholesterol/H DL Ratio: Average risk: 4.4 1/2 average risk: 3.3 2 x average risk: 7.1 Interpretation and review of laboratory results Abnormal [facility] Triglyceride [Mass/Vol] 151 mg/dL High 30 - 150 mg/dL [facility] Comment on above: National Cholesterol Education Program Guidelines: Triglyceride Normal: <150 mg/dL Borderline High: 150-199 mg/dL High: 200-499 mg/dL Very High: greater than or equal to 500 mg/dL No Panel Informationon 04-16 [facility] TSH DL <= 0.005 mIU/L Qnon 0 04-16-2021 Interpretation and review of laboratory results Normal [facility] TSH Qn 1.04 m[IU]/L [facility] Basic Metabolic Panel w/ Ref ray to MGon 03-23-2021 Anion gap [Moles/Vol] 13 mmol/L 9 - 17 mmol/L [facility] [employer] Calcium [Mass/Vol] 8.8 mg/dL 8.6 - 10. 4 mg/dL [facility] Chloride [Moles/Vol] 104 mmol/L 98 - 10 7 mmol/L [facility] CO2 [Moles/Vol] 21 mmol/L 20 - 31 mmol/L [facility] Creatinine [Mass/Vol] 0.65 mg/dL 0.50 - 0.90 mg/dL [facility] GFR >60 >60 mL/min [facility] [employer] GFR Non- >60 >60 mL/min [facility] [employer] GFR/1.73 sq M.predicted MDRD (S/P/Bld) [Vol rate/Area] [facility] Comment on above: Average GFR for 30-3 9 years old: 107 mL/min/1.73sq m Chronic Kidney Disease: <60 mL/min/1.73sq m Kidney failure: <15 mL/min/1.73sq m eGFR calculated using average adult body mass. Additional eGFR calculator available at: http://www.emoteShare/multiple_crcl_2012.htm GFR/1.73 sq M.predicted MDRD (S/P/Bld) [Vol rate/Area] NOT REPORTED [facility] Glucose [Mass/Vol] 104 mg/dL High 70 - 99 mg/dL [facility] Interpretation and review of laboratory results Abnormal [facility] Potassium [Moles/Vol] 3.7 mmol/L 3.7 - 5.3 mmol/L [facility] Sodium [Moles/Vol] 138 mmol/L 135 - 144 mmol/L [facility] Urea nitrogen (BldV) [Mass/Vol] 15 mg/dL 6 - 20 mg/dL [facility] Urea nitrogen/Creatinine (Bld) [Mass ratio] 23 High [facility] CBC Auto Differentialon 03-07 Absolute Eos # 0.10 [facility] Absolute Immature Granulocyte NOT REPORTED [facility] Absolute Lymph # 0.60 Low [facility] alth Absolute Coffee [facility].50 [facility] Basophils (Bld) [#/Vol] 0.00 10*3/uL [facility] Basophils/100 WBC (Bld) 0 % 0 - 2 % [facility] Differential Type YES [facility] Eosinophils/100 WBC (Bld) 2 % 0 - 5 % [facility] Hematocrit (Bld) [Volume fraction] 34.6 % Low 36 - 46 % [facility] Hemoglobin.gastrointestin al spec 1 Ql (Stl) 11.7 g/dL Low 12.0 - 16.0 g/dL [facility] Immature Granulocytes NOT REPORTED 0 % [facility] Interpretation and review of laboratory results Abnormal [facility] Lymphocytes/100 WBC (Bld) 13 % Low 15 - 40 % [facility] MCH (RBC) [Entitic mass] 26.4 pg 26 - 34 pg [facility] MCHC (RBC) [Mass/Vol] 33.8 g/dL 31 - 3 7 g/dL [facility] MCV (RBC) [Entitic vol] 78.2 fL Low 80 - 100 fL [facility] Monocytes/100 WBC (Bld) 10 % High 4 - 8 % [facility] NRBC Automated NOT REPORTED per 100 WBC [facility] ealt Platelet distribution width (Bld) [Ratio] 14.4 % 12.1 - 15.2 % [facility] Platelet Estimate NOT REPORTED [facility] Platelet mean volume (Bld) [Entitic vol] NOT REPORTED 6.0 - 12.0 fL [facility] Platelets (Bld) [#/Vol] 259 10*3/uL [facility] RBC (Bld) [#/Vol] 4.43 10*6/uL 4.0 - 5.2 m/uL [facility] RBC (Bld) [#/Vol] NOT REPORTED [facility] Segmented neutrophils/100 WBC (Bld) 75 % 47 - 75 % [facility] Segs Absolute 3.60 [facility] h WBC (Bld) [#/Vol] 4.8 10*3/uL [facility] WBC (Bld) [#/Vol] NOT REPORTED [facility] COVID-19, Rapidon 03-23-2021 Interpretation and review of laboratory results Abnormal [facility] SARS-CoV-2 (COVID-19) RNA KALPESH+probe Ql (Unsp spec) Detected Abnormal Not Detected [facility] Comment on above: Rapid NAAT: The [...] this assay. Fact sheet for Healthcare Providers: https://www.fda.gov/media/689195/download Fact sheet for Patients: https://www.fda.gov/media/001756/download Methodology: Isothermal Nucleic Acid Amplification Results reported to the appropriate Health Department Specimen Description .NASOPHARYNGEAL SWAB [facility] No Panel Informationon 03-23 Direct Exam Negative [facility] Rapid influenza A/B antigens on 03-23-2021 Special Requests NOT REPORTED [facility] Specimen Description .NASOPHARYNGEAL SWAB [facility] COVID-19, RapidOrdered By: Shayy Springer on 12-27-2020 SARS-CoV-2 (COVID-19) RNA KALPESH+probe Ql (Unsp spec) Not detected Not Detected hyaqu Phone: Comment on above: Rapid NAAT: The [...] management decisions. Fact sheet for Healthcare Providers: https://www.fda.gov/media/788728/download Fact sheet for Patients: https://www.fda.gov/media/185659/download Methodology: Isothermal Nucleic Acid Amplification Specimen Description .NASOPHARYNGEAL SWAB [employer]aqu Phone: hyaqu Phone: Strep Screen Group A ThroatO rdered By: Wayne Springer on 12-27-2020 S. pyogenes Ag IA Ql (Unsp spec) Rapid Strep A negative. A negative Rapid Group A Strep Screen result does not rule out the possibility of Group A Streptococci in the specimen. A Group A Strep DNA test is available upon request. [employer]aqu Phone: Special Requests NOT REPORTED [employer] Phone: Specimen Description .THROAT [employer] Phone: hyaqu Phone: XR SHOULDER RIGHT (MIN 2 VIE WS)Ordered By: Allegra Quinn on 11-20-2020 No acute fracture or traumatic malalignment. [employer]aqu Phone: EXAMINATION: XR SHOULDER RIGHT (MIN 2 VIEWS), , 11/20/2020 9:30 PM EDT INDICATION: Reason for exam:->shoulder pain HISTORY: Ordering Provider Reason for Exam: Technologist Note: Additional: COMPARISON: None. TECHNIQUE: Right shoulder x-ray: 3 view(s). FINDINGS: No acute fracture. Glenohumeral and acromioclavicular joints are anatomically aligned. Joint spaces are preserved. Soft tissues are unremarkable. hyaqu Phone: Ward, pn Incoming Radiant Results From [facility] - 11/20/2020 9:55 PM EDT EXAMINATION: XR [...] IMPRESSION: No acute fracture or traumatic malalignment. hyaqu Phone: hyaqu Phone: COVID-19, MOLECULARon 2020 SARS-CoV-2 (COVID-19) RNA KALPESH+probe Ql (Unsp spec) Not detected Normal Not Detected [facility] Comment on above: Order Comment: : COV [...] at the following links: For Healthcare Providers: https://www.fda.gov/media/425740/download For Patients: https://www.fda.gov/media/125892/download Performed By: #### L [id number] #### [facility] [id number] [address] Joe Rider M.D. [id number] HbA1c (Bld) [Mass fraction]O rdered By: Zelda Bautista on 07-09-2020 Interpretation and review of laboratory results Normal [facility] POC Hemoglobin [id number] By : Zelda Bautista on 07-09-2020 HbA1c (Bld) [Mass fraction] 5.2 % 4.0 - 6.0 % [facility] HbA1c (Bld) [Mass fraction]O rdered By: Lelo Gallegos on 06-09-2020 Interpretation and review of laboratory results Normal [facility] POC Hemoglobin [id number] By : Lelo Gallegos on 06-09-2020 HbA1c (Bld) [Mass fraction] 5.6 % 4.0 - 6.0 % [facility] CBC Auto Differentialon 03-08 Basophils (Bld) [#/Vol] 0.00 10*3/uL [place] Basophils/100 WBC (Bld) 0 % 0 - 2 % [place] Differential Type YES [place] Eosinophils (Bld) [#/Vol] 0.10 10*3/uL [place] Eosinophils/100 WBC (Bld) 1 % 0 - 5 % [place] Erythrocyte distribution width (RBC) [Ratio] 14.2 % 12.1 - 15.2 % [place] Hematocrit (Bld) [Volume fraction] 36.1 % 36 - 46 % [place] Hemoglobin (Bld) [Mass/Vol] 12.5 g/dL 12 - 16 g/dL [place] Interpretation and review of laboratory results Abnormal [place] Lymphocytes (Bld) [#/Vol] 2.00 10*3/uL [place] Lymphocytes/100 WBC (Bld) 14 % Low 15 - 40 % [place] MCH (RBC) [Entitic mass] 30.6 pg 26 - 34 pg [place] MCHC (RBC) [Mass/Vol] 34.5 g/dL 31 - 3 7 g/dL [place] MCV (RBC) [Entitic vol] 88.5 fL 80 - 100 fL [place] Monocytes (Bld) [#/Vol] 0.80 10*3/uL [place] Monocytes/100 WBC (Bld) 6 % 4 - 8 % [place] Platelet mean volume (Bld) [Entitic vol] NOT REPORTED 6 - 12 fL [employer] Platelets (Bld) [#/Vol] 300 10*3/uL [place] Platelets (Bld) [#/Vol] NOT REPORTED [place] RBC (Bld) [#/Vol] 4.08 10*6/uL 4 - 5.2 m/uL [place] RBC morphology finding Nom (Bld) NOT REPORTED [place] Segmented neutrophils/100 WBC (Bld) 79 % High 47 - 75 % [place] Segs Absolute 10.70 High [place] WBC (Bld) [#/Vol] 13.6 10*3/uL [place] WBC (Bld) [#/Vol] NOT REPORTED per 100 WBC [place] WBC Morphology NOT REPORTED [place] COVID-19, PCRon 03-26-2020 SARS-CoV-2, Rapid Not Detected Not Detected [place] Comment on above: Rapid NAAT: The [...] management decisions. Fact sheet for Healthcare Providers: https://www.fda.gov/media/655261/download Fact sheet for Patients: https://www.[facility].gov/media/976311/download Methodology: Isothermal Nucleic Acid Amplification Source .THROAT [place] Comprehensive Metabolic Pane l w/ Reflex to MGon 03-26-2020 Albumin [Mass/Vol] 3.3 g/dL Low 3.5 - 5.2 g/dL [place] Albumin/Globulin [Mass ratio] NOT REPORTED [place] ALP [Catalytic activity/Vol] 57 U/L 35 - 104 U/L [place] ALT [Catalytic activity/Vol] U/L Low 5 - 33 U/L [place] Anion gap [Moles/Vol] 11 mmol/L 9 - 17 mmol/L [place] AST [Catalytic activity/Vol] 9 U/L <32 [place] Bilirubin Ql (U) 0.10 mg/dL Low 0.3 - 1.2 mg/dL [place] Bun/Cre Ratio 21 High [place] Calcium [Mass/Vol] 10.2 mg/dL 8.6 - 10. 4 mg/dL [place] Chloride [Moles/Vol] 104 mmol/L 98 - 10 7 mmol/L [place] CO2 [Moles/Vol] 21 mmol/L 20 - 31 mmol/L [place] Creatinine [Mass/Vol] 0.42 mg/dL Low 0.5 - 0.9 mg/dL [place] GFR >60 >60 mL/min [place] GFR Non- >60 >60 mL/min [place] GFR/1.73 sq M predicted among non-blacks MDRD (S/P/Bld) [Vol rate/Area] NOT REPORTED [place] GFR/1.73 sq M predicted among non-blacks MDRD (S/P/Bld) [Vol rate/Area] [place] Comment on above: Average GFR for 30-3 9 years old: 107 mL/min/1.73sq m Chronic Kidney Disease: <60 mL/min/1.73sq m Kidney failure: <15 mL/min/1.73sq m eGFR calculated using average adult body mass. Additional eGFR calculator available at: http://www.emoteShare/multiple_crcl_2012.htm Glucose [Mass/Vol] 100 mg/dL High 70 - 99 mg/dL [place] Interpretation and review of laboratory results Abnormal [place] Potassium [Moles/Vol] 3.8 mmol/L 3.7 - 5.3 mmol/L [place] Protein [Mass/Vol] 6.5 g/dL 6.4 - 8.3 g/dL [place] Sodium [Moles/Vol] 136 mmol/L 135 - 144 mmol/L [place] Urea nitrogen [Mass/Vol] 9 mg/dL 6 - 20 mg/dL [place] Otheron 03-26-2020 SARS-CoV-2 [place] Immature granulocytes (Bld) [#/Vol] NOT REPORTED [place] Urinalysis, reflex to micros copicon 03-26-2020 Bilirubin Urine Negative NEGATIVE [place] Color, UA YELLOW YELLOW [place] Glucose, Ur Negative NEGATIVE [place] Ketones Ql (U) Negative NEGATIVE [place] Leukocyte esterase Test strip Ql (U) Negative NEGATIVE [place] Nitrite, Urine Negative NEGATIVE [place] pH, UA 7.0 [place] Protein (U) [Mass/Vol] Negative NEGATIVE [place] Specific [place], UA 1.010 [place] Turbidity UA CLEAR CLEAR [employer] Urinalysis Comments [place] Urine Hgb Negative NEGATIVE [place] Urobilinogen, Urine Normal Normal [place] Wet Prep, Genitalon 11-20-19 Direct Exam MODERATE EPITHELIAL CELLS Abnormal [place] Direct Exam FEW TRICHOMONAS SEEN Abnormal [place] Direct Exam MODERATE BACTERIA Abnormal [place] Direct Exam Few epithelials coated with bacteria resembling clue cells. Abnormal [place] Direct Exam NO FUNGAL ELEMENTS SEEN [place] Interpretation and review of laboratory results Abnormal [place] Special Requests NOT REPORTED [place] Specimen Description .VAGINAL SPECIMEN [place] WBC (Bld) [#/Vol] FEW WBC SEEN Abnormal [place] Basic Metabolic Panelon 06-05 Anion gap [Moles/Vol] 15 mmol/L 10 - 2 0 mmol/L [facility] Calcium [Mass/Vol] 8.6 mg/dL 8.4 - 10. 2 mg/dL [facility] Chloride [Moles/Vol] 102 mmol/L 98 - 10 8 mmol/L [facility] Creatinine [Mass/Vol] 0.36 mg/dL Low 0.40 - 1.10 [facility] GFR/1.73 sq M predicted among non-blacks MDRD (S/P/Bld) [Vol rate/Area] The eGFR should be used for monitoring renal function only and not for medication dosing. [facility] GFR/1.73 sq M.predicted CKD-EPI (S/P/Bld) [Vol rate/Area] 146 >=60 mL/min/1.73 m2 [facility] Glucose [Mass/Vol] 102 mg/dL High 65 - 99 mg/dL [facility] HCO3 [Moles/Vol] 25 mmol/L 21 - 32 mmol/L [facility] Interpretation and review of laboratory results Abnormal [facility] Potassium [Moles/Vol] 4.1 mmol/L 3.5 - 5.1 mmol/L [facility] Sodium [Moles/Vol] 138 mmol/L 135 - 145 mmol/L [facility] Urea nitrogen [Mass/Vol] 5 mg/dL Low 8 - 25 mg/dL [facility] Urea nitrogen/Creatinine [Mass ratio] 13.9 mg/mg [facility] Hepatic Function Panelon Albumin [Mass/Vol] 3.3 g/dL 3.2 - 5.2 g/dL [facility] ALP [Catalytic activity/Vol] 253 U/L High 40 - 140 U/L [facility] ALT [Catalytic activity/Vol] 686 U/L High 0 - 40 U/L [facility] AST [Catalytic activity/Vol] 349 U/L High 0 - 45 U/L [facility] Bilirubin [Mass/Vol] 6.0 mg/dL High 0 - 1.3 mg/dL [facility] Bilirubin.conjugated [Mass/Vol] 5.1 mg/dL High 0 - 0.4 mg/dL [facility] Interpretation and review of laboratory results Abnormal [facility] Protein [Mass/Vol] 6.8 g/dL 6 - 8 g/dL [facility] alth Bilirubin, Directon 06-16-19 20 Bilirubin.conjugated [Mass/Vol] 5.4 mg/dL High 0 - 0.4 mg/dL [facility] Interpretation and review of laboratory results Abnormal [facility] CBCon 06-16-2019 Erythrocyte distribution width (RBC) [Entitic vol] 15.1 % High 11.6 - 14.8 % [facility] Hematocrit (Bld) [Volume fraction] 38.5 % 36 - 46 % [facility] Hemoglobin (Bld) [Mass/Vol] 12.9 g/dL 12 - 16 g/dL [facility] Interpretation and review of laboratory results Abnormal [facility] MCH (RBC) [Entitic mass] 29.1 pg 26 - 34 pg [facility] MCHC (RBC) [Mass/Vol] 33.5 g/dL 31 - 3 7 g/dL [facility] MCV (RBC) [Entitic vol] 86.9 fL 80 - 100 fL [facility] Nucleated RBC (Bld) [#/Vol] 0.00 10*3/uL [facility] Nucleated RBC/100 WBC (Bld) [Ratio] 0.0 % [facility] Platelet mean volume (Bld) [Entitic vol] 11.3 fL 9 - 15.5 fL [facility] Platelets (Bld) [#/Vol] 185 10*3/uL [facility] RBC (Bld) [#/Vol] 4.43 10*6/uL [facility] WBC (Bld) [#/Vol] 6.48 10*3/uL [facility] Comprehensive Metabolic Pane cayden 06-16-2019 Albumin [Mass/Vol] 3.3 g/dL 3.2 - 5.2 g/dL [facility] ALP [Catalytic activity/Vol] 217 U/L High 40 - 140 U/L [facility] ALT [Catalytic activity/Vol] 825 U/L High 0 - 40 U/L [facility] Anion gap [Moles/Vol] 14 mmol/L 10 - 2 0 mmol/L [facility] AST [Catalytic activity/Vol] 544 U/L High 0 - 45 U/L [facility] Bilirubin [Mass/Vol] 5.9 mg/dL High 0 - 1.3 mg/dL [facility] Calcium [Mass/Vol] 8.4 mg/dL 8.4 - 10. 2 mg/dL [facility] Chloride [Moles/Vol] 103 mmol/L 98 - 10 8 mmol/L [facility] Creatinine [Mass/Vol] 0.32 mg/dL Low 0.40 - 1.10 [facility] GFR/1.73 sq M predicted among non-blacks MDRD (S/P/Bld) [Vol rate/Area] The eGFR should be used for monitoring renal function only and not for medication dosing. [facility] GFR/1.73 sq M.predicted CKD-EPI (S/P/Bld) [Vol rate/Area] 152 >=60 mL/min/1.73 m2 [facility] Glucose [Mass/Vol] 92 mg/dL 65 - 99 mg/dL [facility] HCO3 [Moles/Vol] 26 mmol/L 21 - 32 mmol/L [facility] Interpretation and review of laboratory results Abnormal [facility] Potassium [Moles/Vol] 4.3 mmol/L 3.5 - 5.1 mmol/L [facility] Protein [Mass/Vol] 6.2 g/dL 6 - 8 g/dL [facility] Sodium [Moles/Vol] 139 mmol/L 135 - 145 mmol/L [facility] Urea nitrogen [Mass/Vol] 4 mg/dL Low 8 - 25 mg/dL [facility] Urea nitrogen/Creatinine [Mass ratio] 12.5 mg/mg [facility] Bilirubin, Directon 06-15-19 20 Bilirubin.conjugated [Mass/Vol] 4.7 mg/dL High 0 - 0.4 mg/dL [facility] Interpretation and review of laboratory results Abnormal [facility] CBCon 06-15-2019 Erythrocyte distribution width (RBC) [Entitic vol] 14.8 % 11.6 - 14.8 % [facility] Hematocrit (Bld) [Volume fraction] 38.5 % 36 - 46 % [facility] Hemoglobin (Bld) [Mass/Vol] 12.6 g/dL 12 - 16 g/dL [facility] MCH (RBC) [Entitic mass] 29.0 pg 26 - 34 pg [facility] MCHC (RBC) [Mass/Vol] 32.7 g/dL 31 - 3 7 g/dL [facility] MCV (RBC) [Entitic vol] 88.5 fL 80 - 100 fL [facility] Nucleated RBC (Bld) [#/Vol] 0.00 10*3/uL [facility] Nucleated RBC/100 WBC (Bld) [Ratio] 0.0 % [facility] Platelet mean volume (Bld) [Entitic vol] 11.0 fL 9 - 15.5 fL [facility] Platelets (Bld) [#/Vol] 155 10*3/uL [facility] RBC (Bld) [#/Vol] 4.35 10*6/uL [facility] WBC (Bld) [#/Vol] 5.74 10*3/uL [facility] Comprehensive Metabolic Pane cayden 06-15-2019 Albumin [Mass/Vol] 3.2 g/dL 3.2 - 5.2 g/dL [facility] ALP [Catalytic activity/Vol] 193 U/L High 40 - 140 U/L [facility] ALT [Catalytic activity/Vol] 888 U/L High 0 - 40 U/L [facility] Anion gap [Moles/Vol] 15 mmol/L 10 - 2 0 mmol/L [facility] AST [Catalytic activity/Vol] 667 U/L High 0 - 45 U/L [facility] Bilirubin [Mass/Vol] 5.2 mg/dL High 0 - 1.3 mg/dL [facility] Calcium [Mass/Vol] 8.2 mg/dL Low 8.4 - 10. 2 mg/dL [facility] Chloride [Moles/Vol] 103 mmol/L 98 - 10 8 mmol/L [facility] Creatinine [Mass/Vol] 0.36 mg/dL Low 0.40 - 1.10 [facility] GFR/1.73 sq M predicted among non-blacks MDRD (S/P/Bld) [Vol rate/Area] The eGFR should be used for monitoring renal function only and not for medication dosing. [facility] GFR/1.73 sq M.predicted CKD-EPI (S/P/Bld) [Vol rate/Area] 146 >=60 mL/min/1.73 m2 [facility] Glucose [Mass/Vol] 122 mg/dL High 65 - 99 mg/dL [facility] HCO3 [Moles/Vol] 22 mmol/L 21 - 32 mmol/L [facility] Interpretation and review of laboratory results Abnormal [facility] Potassium [Moles/Vol] 3.8 mmol/L 3.5 - 5.1 mmol/L [facility] Protein [Mass/Vol] 5.8 g/dL Low 6 - 8 g/dL [facility] Sodium [Moles/Vol] 136 mmol/L 135 - 145 mmol/L [facility] Urea nitrogen [Mass/Vol] 5 mg/dL Low 8 - 25 mg/dL [facility] Urea nitrogen/Creatinine [Mass ratio] 13.9 mg/mg [facility] NM HEPATOBILIARY WO EJECTION FRACTIONon 06-15-2019 [...] tree, and small bowel are not visualized. [facility] Opacified liver with no visualization of [...] regarding the presence or absence of cholecystitis. YESENIA/elda Workstation ID: [id number] [facility] Interface, Rad In [facility] - 06/15/2019 3:10 PM EDT EXAMINATION: RADIONUCLIDE [...] regarding the presence or absence of cholecystitis. YESENIA/elda Workstation ID: [id number] [facility] APTTon 06-14-2019 aPTT Coag (Bld) [Time] 31.1 s [facility] [place], [place] Comment on above: PTT Therapeutic Range: 61.7-88.4 Therapeutic range corresponds to plasma heparin levels of 0.3-0.7 U/mL. Acetaminophen Levelon 2019 Acetaminophen [Mass/Vol] 9.1 [facility] Interpretation and review of laboratory results Normal [facility] Bilirubin, Directon 06-14-19 20 Bilirubin.conjugated [Mass/Vol] 4.3 mg/dL High 0 - 0.4 mg/dL [facility] Interpretation and review of laboratory results Abnormal [facility] CBC WITH AUTO DIFFERENTIALon 06-14-2019 Erythrocyte distribution width (RBC) [Entitic vol] 14.5 % 11.6 - 14.8 % [facility] Hematocrit (Bld) [Volume fraction] 34.6 % Low 36 - 46 % [facility] Hemoglobin (Bld) [Mass/Vol] 11.6 g/dL Low 12 - 16 g/dL [facility] Interpretation and review of laboratory results Abnormal [facility] MCH (RBC) [Entitic mass] 29.7 pg 26 - 34 pg [facility] MCHC (RBC) [Mass/Vol] 33.5 g/dL 31 - 3 7 g/dL [facility] MCV (RBC) [Entitic vol] 88.5 fL 80 - 100 fL [facility] Nucleated RBC (Bld) [#/Vol] 0.00 10*3/uL [facility] Nucleated RBC/100 WBC (Bld) [Ratio] 0.0 % [facility] Platelet mean volume (Bld) [Entitic vol] 10.8 fL 9 - 15.5 fL [facility] Platelets (Bld) [#/Vol] 172 10*3/uL [facility] RBC (Bld) [#/Vol] 3.91 10*6/uL Low [facility] ealth WBC (Bld) [#/Vol] 7.28 10*3/uL [facility] ealth CT ABDOMEN PELVIS W IV CONTR AST Additional Contrast? Noneon 06-14-2019 Ward, M[facility]pn Incoming Radiant Results From [facility] - 06/14/2019 12:27 AM EDT EXAMINATION: CT [...] liver function panel and consider ultrasound imaging. [place], [place] Pericholecystic fluid versus gallbladder wall thickening and additional periportal edema. There are no visualized stones in the gallbladder gallbladder and/or hepatic pathology are suspected. Correlate with liver function panel and consider ultrasound imaging. [place], [place] EXAMINATION: CT ABDOMEN PELVIS W IV [...] structures demonstrate no acute or concerning abnormality. [facility] [place], [place] CT COMPARISON IMPORTon 06-13 This order has been auto-finalized and does not contain a result. [facility] Comprehensive Metabolic Pane cayden 06-14-2019 Albumin [Mass/Vol] 3.0 g/dL Low 3.2 - 5.2 g/dL [facility] ALP [Catalytic activity/Vol] 183 U/L High 40 - 140 U/L [facility] ALT [Catalytic activity/Vol] 808 U/L High 0 - 40 U/L [facility] Anion gap [Moles/Vol] 16 mmol/L 10 - 2 0 mmol/L [facility] AST [Catalytic activity/Vol] 592 U/L High 0 - 45 U/L [facility] Bilirubin [Mass/Vol] 4.9 mg/dL High 0 - 1.3 mg/dL [facility] Calcium [Mass/Vol] 8.4 mg/dL 8.4 - 10. 2 mg/dL [facility] Chloride [Moles/Vol] 104 mmol/L 98 - 10 8 mmol/L [facility] Creatinine [Mass/Vol] 0.43 mg/dL 0.40 - 1.10 [facility] GFR/1.73 sq M predicted among non-blacks MDRD (S/P/Bld) [Vol rate/Area] The eGFR should be used for monitoring renal function only and not for medication dosing. [facility] GFR/1.73 sq M.predicted CKD-EPI (S/P/Bld) [Vol rate/Area] 138 >=60 mL/min/1.73 m2 [facility] Glucose [Mass/Vol] 79 mg/dL 65 - 99 mg/dL [facility] HCO3 [Moles/Vol] 21 mmol/L 21 - 32 mmol/L [facility] Interpretation and review of laboratory results Abnormal [facility] Potassium [Moles/Vol] 3.8 mmol/L 3.5 - 5.1 mmol/L [facility] Protein [Mass/Vol] 5.7 g/dL Low 6 - 8 g/dL [facility]th Sodium [Moles/Vol] 137 mmol/L 135 - 145 mmol/L [facility] Urea nitrogen [Mass/Vol] 9 mg/dL 8 - 25 mg/dL [facility] Urea nitrogen/Creatinine [Mass ratio] 20.9 mg/mg High [facility] DRUGS OF ABUSE SCREEN, URINE on 06-14-2019 Amphetamines Ql (U) None Detected None Detected [facility] Comment on above: Urine Amphetamine Cu toff: < 1000 ng/mL = None Detected Barbiturates Screen Ql (U) None Detected None Detected [facility] Comment on above: Urine Barbiturates C utoff: < 200 ng/mL = None Detected Benzodiazepines Ql (U) None Detected None Detected [facility] Comment on above: Urine Benzodiazepine Cutoff: < 300 ng/mL = None Detected Cannabinoids Screen Ql (U) None Detected None Detected [facility] Comment on above: Urine Cannabinoids C utoff: < 50 ng/mL = None Detected Cocaine Ql (U) Positive Abnormal None Detected [facility] Comment on above: Urine Cocaine Cutoff : < 300 ng/mL = None Detected Interpretation and review of laboratory results Abnormal [facility] Methadone Screen Ql (U) None Detected Non e Detected [facility] Comment on above: Urine Methadone Cuto ff: < 300 ng/mL = None Detected Opiates Screen Ql (U) None Detected None Detected [facility] Comment on above: Urine Opiates Cutoff : < 300 ng/mL = None Detected Oxycodone Ql (U) None Detected None Detected [facility] Comment on above: Urine Oxycodone Cuto ff: < 100 ng/mL = None Detected Screen results should be used for treatment purposes only. Specimen will be kept for 2 weeks, if the sample is adequate. Confirmation testing can be initiated by calling the lab within 2 weeks. [facility] HEPATITIS PANEL, ACUTEon HAV IgM Ql (S) Negative Negative [facility] HBV core IgM Ql (S) Negative Negative [facility] ealt HBV surface Ag Ql (S) Negative Negative [facility] HCV Ab Ql (S) Positive Abnormal Negative [facility] Comment on above: A positive antibody test requires additional follow-up testing, Hepatitis C Virus Quantitation, to determine if a person is currently infected with Hepatitis C. Interpretation and review of laboratory results Abnormal [facility] Test performed using Constantin DEVIKA immunoassay system [facility] Lactic Acid, Plasmaon 2019 Interpretation and review of laboratory results Normal [facility] Lactate [Moles/Vol] 0.8 mmol/L 0.6 - 2 mmol/L [facility] MORPHOLOGYon 06-14-2019 Platelets LM Ql (Bld) Normal Normal [facility] RBC morphology finding Nom (Bld) Normal [facility] MR MRCPon 06-14-2019 EXAMINATION: MR MRCP 03/15/2024 HISTORY: ORDERING SYSTEM [...] Axial T1-weighted images were obtained in- and [id number]. Axial diffusion-weighted imaging was also performed. FINDINGS: The liver overall appears enlarged with the right hepatic lobe measuring 22.6 cm ffujeipl-ck-zjfgixn r. The spleen measures 14.6 cm ansnyqef-zy-uljajzl r and is also mildly enlarged. There [...] right kidney. Bowel pattern is nonobstructive. [facility] 1. Re-demonstration of diffuse periportal edema as well as significant circumferential gallbladder wall edema similar to that seen on prior CT study. 2. Mild hepatosplenomegaly. 3. No obvious gallstones. Negative for biliary or pancreatic ductal dilatation. Negative for choledocholithiasis . 4. Trace volume of abdominal ascites. [employer] Workstation ID: [id number] [facility] Interface, Rad In [employer] - 06/14/2019 4:45 PM EDT EXAMINATION: MR [...] Axial T1-weighted images were obtained in- and [id number]. Axial diffusion-weighted imaging was also performed. FINDINGS: The liver overall appears enlarged with the right hepatic lobe measuring 22.6 cm floqjyqb-at-eazmsng r. The spleen measures 14.6 cm hnvobqza-ox-pklxhtt r and is also mildly enlarged. There [...] . 4. Trace volume of abdominal ascites. [employer] Workstation ID: [id number] [facility] Manual Differentialon 2019 Basophils (Bld) [#/Vol] 0.00 10*3/uL [facility] Basophils/100 WBC (Bld) 0.0 % [facility] Eosinophils (Bld) [#/Vol] 0.00 10*3/uL [facility] Eosinophils/100 WBC (Bld) 0.0 % [facility] Lymphocytes (Bld) [#/Vol] 3.28 10*3/uL [facility] Lymphocytes/100 WBC (Bld) 37.0 % [facility] Monocytes (Bld) [#/Vol] 0.44 10*3/uL [facility] Monocytes/100 WBC (Bld) 6.0 % [facility] Neutrophils (Bld) [#/Vol] 3.57 10*3/uL [facility] Neutrophils/100 WBC (Bld) 49.0 % [facility] Variant lymphocytes/100 WBC (Bld) 8.0 % [facility] PT/INRon 06-14-2019 INR Coag (PPP) [Relative time] 1.3 {INR} High [facility] Interpretation and review of laboratory results Abnormal [facility] PT Coag (PPP) [Time] 15.5 s [facility] During the induction phase of oral anticoagulation, the INR may not reflect the anticoagulation status of the patient. Therapeutic ranges for INR's are: Most clinical situations: INR 2.0-3.0 Mechanical Prosthetic Valve: INR 2.5-3.5 Critical: INR >5.0 [facility] Protime-INRon 06-14-2019 INR Coag (PPP) [Relative time] 1.2 {INR} [place], [place] Comment on above: * THERAPY INDICATIONS * REFERENCE RANGES Pts not on anti-coagulants 1.0 - 1.5 INR Low risk pts on anti-coagulants 2.0 - 3.0 INR High risk pts on anti-coagulants 2.5 - 3.5 INR Prevention of atrial thrombo-embolism 3.0 - 4.5 INR Interpretation and review of laboratory results Abnormal [place], [place] PT Coag (PPP) [Time] 11.7 s [place], [place] Salicylate Levelon 0 Interpretation and review of laboratory results Abnormal [facility] Salicylates [Mass/Vol] mg/dL Low 10 - 20 mg/dL [facility] URINALYSISon 06-14-2019 Bacteria Auto Ql (U) Rare Abnormal None Se en /hpf [facility] Bilirubin Ql (U) Positive Abnormal Negative [facility] Comment on above: False positive urine bilirubins can occur in the setting of a large amount of hemoglobin and secondary to medications including anti-inflammatory agents, rifampin, and pyridium. Clarity Refractometry automated (U) Clear Clear [facility] Color (U) Erica Abnormal Colorless, Yellow [facility] Epithelial cells.squamous Auto (Urine sed) [#/Area] 4 [place] [facility] Glucose Auto test strip (U) [Mass/Vol] Negative Negative mg/dL [facility] Hemoglobin Auto test strip Ql (U) Negative Negative [facility] Interpretation and review of laboratory results Abnormal [facility] Ketones (U) [Mass/Vol] >=80 Abnormal Negat krystal mg/dL [facility] Leukocyte esterase Auto test strip Ql (U) Negative Negative [facility] Mucus Auto (Urine sed) [#/Area] Rare None Seen, Rare /lpf [facility] Nitrite Auto test strip Ql (U) Negative Negative [facility] pH (U) 6.0 [pH] [facility] Protein (U) [Mass/Vol] 30 Abnormal Negat krystal mg/dL [facility] Comment on above: False positive resul ts may occur in urines with large amounts of hemoglobin, pH greater than 8.0, contrast medium, or disinfectants including ammonium compounds. RBC Auto (Urine sed) [#/Area] 2 [facility] Specific gravity (U) [Rel density] 1.028 High [facility] Urobilinogen (U) [Mass/Vol] >=4.0 Abnormal <2.0 mg/dL [facility] WBC Auto (Urine sed) [#/Area] 2 [facility] Microscopic examination is performed on all urinalysis samples and only positive findings are reported. The test for blood on the chemical analytic portion of urinalysis may also be positive due to hemoglobinuria and myoglobinuria and if red blood cells are present they are quantified by microscopic examination. [facility] US ABDOMEN LIMITED STUDYon 0 06-14-2019 [...] liver likely small hemangioma. Workstation ID: [id number] [facility] EXAMINATION: US ABDOMEN LIMITED STUDY HISTORY: [...] measures 10.7 cm in length. No hydronephrosis. [facility] 1. Contracted gallbladder limits evaluation. No cholelithiasis identified. Nonspecific edematous gallbladder wall thickening and reported positive sonographic Short's sign, cannot exclude acalculus cholecystitis. No biliary ductal dilatation. 2. 1.3 cm echogenic lesion left lobe of the liver likely small hemangioma. Workstation ID: [id number] [facility] Amylaseon 06-13-2019 Amylase [Catalytic activity/Vol] 22 U/L Low 28 - 100 U/L [place] CBC Auto Differentialon Basophils (Bld) [#/Vol] 0.00 10*3/uL [place] Basophils/100 WBC (Bld) 1 % 0 - 2 % [place], [place] Differential Type YES [place] Eosinophils (Bld) [#/Vol] 0.00 10*3/uL [place] Eosinophils/100 WBC (Bld) 0 % 0 - 5 % [place] Erythrocyte distribution width (RBC) [Ratio] 14.9 % 12.1 - 15.2 % [place] Hematocrit (Bld) [Volume fraction] 43.3 % 36 - 46 % [place] Hemoglobin (Bld) [Mass/Vol] 14.3 g/dL 12 - 16 g/dL [place] Lymphocytes (Bld) [#/Vol] 2.50 10*3/uL [place] Lymphocytes/100 WBC (Bld) 30 % 15 - 40 % [place] MCH (RBC) [Entitic mass] 28.8 pg 26 - 34 pg [place] MCHC (RBC) [Mass/Vol] 33.1 g/dL 31 - 3 7 g/dL [place] MCV (RBC) [Entitic vol] 87.2 fL 80 - 100 fL [place] Monocytes (Bld) [#/Vol] 0.70 10*3/uL [place] Monocytes/100 WBC (Bld) 8 % 4 - 8 % [place] Platelet mean volume (Bld) [Entitic vol] NOT REPORTED 6 - 12 fL [employer], [place] Platelets (Bld) [#/Vol] 203 10*3/uL [place] Platelets (Bld) [#/Vol] NOT REPORTED [place] RBC (Bld) [#/Vol] 4.97 10*6/uL 4 - 5.2 m/uL [place] RBC morphology finding Nom (Bld) NOT REPORTED [place] Segmented neutrophils/100 WBC (Bld) 61 % 47 - 75 % [place] Segs Absolute 5.20 [place], [place] WBC (Bld) [#/Vol] 8.4 10*3/uL [place] WBC (Bld) [#/Vol] NOT REPORTED per 100 WBC [place], [place] WBC Morphology NOT REPORTED [place], [place] Comprehensive Metabolic Pane l w/ Reflex to MGon 06-13-2019 Albumin [Mass/Vol] 4.1 g/dL 3.5 - 5.2 g/dL [place] Albumin/Globulin [Mass ratio] NOT REPORTED [place] ALP [Catalytic activity/Vol] 255 U/L High 35 - 104 U/L [place] ALT [Catalytic activity/Vol] 1116 U/L High 5 - 33 U/L [place] Anion gap [Moles/Vol] 17 mmol/L 9 - 17 mmol/L [place] AST [Catalytic activity/Vol] 665 U/L High <32 [place] Bilirubin Ql (U) 6.52 mg/dL High 0.3 - 1.2 mg/dL [place] Bun/Cre Ratio 17 [place], [place] Calcium [Mass/Vol] 10.1 mg/dL 8.6 - 10. 4 mg/dL [place] Chloride [Moles/Vol] 95 mmol/L Low 98 - 10 7 mmol/L [place] CO2 [Moles/Vol] 24 mmol/L 20 - 31 mmol/L [place] Creatinine [Mass/Vol] 0.82 mg/dL 0.5 - 0.9 mg/dL [place] GFR >60 >60 mL/min [place] GFR Non- >60 >60 mL/min [place] GFR/1.73 sq M predicted among non-blacks MDRD (S/P/Bld) [Vol rate/Area] [place] Comment on above: Average GFR for 20-2 9 years old: 116 mL/min/1.73sq m Chronic Kidney Disease: <60 mL/min/1.73sq m Kidney failure: <15 mL/min/1.73sq m eGFR calculated using average adult body mass. Additional eGFR calculator available at: http://www.emoteShare/multiple_crcl_2012.htm GFR/1.73 sq M predicted among non-blacks MDRD (S/P/Bld) [Vol rate/Area] NOT REPORTED [place] Glucose [Mass/Vol] 134 mg/dL High 70 - 99 mg/dL [place] Interpretation and review of laboratory results Abnormal [place] Potassium [Moles/Vol] 3.7 mmol/L 3.7 - 5.3 mmol/L [place] Protein [Mass/Vol] 8.1 g/dL 6.4 - 8.3 g/dL [place] Sodium [Moles/Vol] 136 mmol/L 135 - 144 mmol/L [place] Urea nitrogen [Mass/Vol] 14 mg/dL 6 - 20 mg/dL [place] Drug screen multi urineon Amphetamine Screen, Ur Negative NEGATIVE [facility] [place] [place] Comment on above: (Positive cutoff 500 ng/mL) Barbiturate Screen, Ur Negative NEGATIVE [place], [place] Comment on above: (Positive cutoff 200 ng/mL) Benzodiazepine Screen, Urine Negative NEGATIVE [place] Comment on above: (Positive cutoff 150 ng/mL) Buprenorphine Urine NOT REPORTED NEGATIVE [place], [place] Cannabinoid Scrn, Ur Negative NEGATIVE [place], [place] Comment on above: (Positive cutoff 50 ng/mL) Cocaine Metabolite, Urine Positive Abnormal NEGATIVE [place] Comment on above: (Positive cutoff 150 ng/mL) Interpretation and review of laboratory results Abnormal [place], [place] MDMA, Urine NOT REPORTED NEGATIVE [place], [place] Methadone Screen, Urine Negative NEGATIVE [place], [place] Comment on above: (Positive cutoff 200 ng/mL) Methamphetamine, Urine Negative NEGATIVE [place], [place] Comment on above: (Positive cutoff 500 ng/mL) Opiates, Urine Positive Abnormal NEGATIVE [place], [place] Comment on above: (Positive cutoff 100 ng/mL) Oxycodone Screen, Ur Negative NEGATIVE [place] Comment on above: (Positive cutoff 100 ng/mL) Phencyclidine, Urine Negative NEGATIVE [place] Comment on above: (Positive cutoff 25 ng/mL) Propoxyphene, Urine Negative NEGATIVE [place] Comment on above: (Positive cutoff 300 ng/mL) Test Information NOT REPORTED [place] Tricyclic Antidepressants, Urine Negative NEGATIVE [place], [place] Comment on above: (Positive cutoff 300 ng/mL) Drug screen results are to be used for medical purposes only. All positive results are unconfirmed. Testing for employment or legal uses should be sent to a reference laboratory for confirmation. Lactic Acidon 06-13-2019 Lactate [Moles/Vol] 1.2 mmol/L 0.5 - 2. 2 mmol/L [place] Lipaseon 06-13-2019 Lipase [Catalytic activity/Vol] 8 U/L Low 13 - 60 U/L [place] Microscopic Urinalysison Amorphous, UA NOT REPORTED None [place], [place] Bacteria, UA 2+ Abnormal None [employer] Casts UA 5 TO 10 HYALINE /LPF [place] Casts UA 2 TO 5 WAXY /LPF [place] Crystals, UA NOT REPORTED None /HPF [place] Epithelial Cells UA LOADED /HPF [place] Interpretation and review of laboratory results Abnormal [place] Mucus, UA 4+ Abnormal None [place] Other Observations UA NOT REPORTED NOT REQ. [place] RBC (U) [#/Vol] 5 TO 10 [place] Renal Epithelial, UA NOT REPORTED 0 /HPF [place] Trichomonas, UA NOT REPORTED None [place] WBC, UA 10 TO 20 0 /HPF [place] Yeast, UA NOT REPORTED None [employer] Otheron 06-13-2019 Interpretation and review of laboratory results Abnormal [place] Immature granulocytes (Bld) [#/Vol] NOT REPORTED 0 % [place] , Urineon 0 Beta HCG ( test) Ql (U) Negative NEGATIVE [place] Urinalysis, reflex to micros copicon 06-13-2019 Bilirubin Urine 3+ Abnormal NEGATIVE [place] Color, UA BROWN Abnormal YELLOW [place] Glucose, Ur Negative NEGATIVE [place] Interpretation and review of laboratory results Abnormal [place] Ketones Ql (U) MODERATE Abnormal NEGATIVE [place] Leukocyte esterase Test strip Ql (U) 1+ Abnormal NEGATIVE [place] Nitrite, Urine Positive Abnormal NEGATIVE [place] pH, UA 5.0 [place] Protein (U) [Mass/Vol] 1+ Abnormal NEGATIVE [place], [place] Specific [place], UA 1.020 [place], [place] Turbidity UA CLEAR CLEAR [employer] Urinalysis Comments [place] Urine Hgb TRACE Abnormal NEGATIVE [facility] [place] Urobilinogen, Urine 12 mg/dL Abnormal Normal [facility] [place] Vital Signs Date Time Vital Sign Value Performing Clinician Facility 05-13-2023 11:27-0500 Body temperature 98.6 [degF] Jonathan Martinez [facility] 05-13-2023 11:27-0500 Diastolic blood pressure 78 mm[Hg] Jonathan Martinez [facility] 05-13-2023 11:27-0500 Heart rate 83 /min Jonathan Martinez [facility] 05-13-2023 11:27-0500 Respiratory rate 18 /min Jonathan Martinez [facility] 05-13-2023 11:27-0500 SaO2% (BldA) [Mass fraction] 97 % Jonathan Martinez [facility] 05-13-2023 11:27-0500 Systolic blood pressure 113 mm[Hg] Jonathan Martinez [facility] 05-11-2023 21:49-0500 Body temperature 98.06 [degF] [facility] 05-11-2023 21:49-0500 Diastolic blood pressure 84 mm[Hg] [facility] 05-11-2023 21:49-0500 Heart rate 105 /min [facility] 05-11-2023 21:49-0500 Respiratory rate 17 /min [facility] 05-11-2023 21:49-0500 SaO2% (BldA) [Mass fraction] 97 % [facility] 05-11-2023 21:49-0500 Systolic blood pressure 130 mm[Hg] [facility] 05-10-2023 11:41-0500 Body height 160 cm Chet Lachelle Work Phone: [facility] 05-10-2023 11:41-0500 Body mass index (BMI) [Ratio] 44.29 kg/m2 Chet Lachelle DO Work Phone: [facility] [employer] 05-10-2023 11:41-0500 Body temperature 97.9 [degF] Chet Lachelle DO Work Phone: [facility] [employer] 05-10-2023 11:41-0500 Body weight 113.4 kg Chet Lachelle STEWART Work Phone: [facility] [employer] 05-10-2023 11:41-0500 Diastolic blood pressure 76 mm[Hg] Chet Lachelle DO Work Phone: [facility] [employer] 05-10-2023 11:41-0500 Heart rate 94 /min Chet Berumen Work Phone: [facility] [employer] 05-10-2023 11:41-0500 Respiratory rate 18 /min Chet Lachelle STEWART Work Phone: [facility] [employer] 05-10-2023 11:41-0500 SaO2% (BldA) [Mass fraction] 96 % Chet Lachelle DO Work Phone: [facility] [employer] 05-10-2023 11:41-0500 Systolic blood pressure 146 mm[Hg] Chet Lachelle STEWART Work Phone: [facility] [employer] 09-04-2022 11:27-0400 Body height 160 cm Erin Lacy MD Work Phone: [employer] 09-04-2022 11:27-0400 Body mass index (BMI) [Ratio] 44.99 kg/m2 Erin Lacy MD Work Phone: [employer] 09-04-2022 11:27-0400 Body temperature 98.2 [degF] Erin Lacy MD Work Phone: [employer] 09-04-2022 11:27-0400 Body weight 115.21 kg Erin Lacy MD Work Phone: [employer] 09-04-2022 11:27-0400 Diastolic blood pressure 71 mm[Hg] Erin Lacy MD Work Phone: [employer] 09-04-2022 11:27-0400 Heart rate 88 /min Erin Lacy MD Work Phone: [employer] 09-04-2022 11:27-0400 Respiratory rate 18 /min Erin Lacy MD Work Phone: [employer] 09-04-2022 11:27-0400 SaO2% (BldA) [Mass fraction] 97 % Erin Lacy MD Work Phone: [employer] 09-04-2022 11:27-0400 Systolic blood pressure 124 mm[Hg] Erin Lacy MD Work Phone: [employer] 06-29-2022 09:49-0400 Diastolic blood pressure 57 mm[Hg] Todd Bing [facility] 06-29-2022 09:49-0400 Heart rate 73 /min Todd Bing [facility] 06-29-2022 09:49-0400 Mean blood pressure 76 mm[Hg] Todd Bing [facility] 06-29-2022 09:49-0400 Respiratory rate 16 /min Todd Bing [facility] 06-29-2022 09:49-0400 Systolic blood pressure 113 mm[Hg] Todd Bing [facility] 05-19-2022 19:28-0400 Body height 160 cm Erin Lacy MD Work Phone: [employer] 05-19-2022 19:28-0400 Body mass index (BMI) [Ratio] 45.17 kg/m2 Erin Lacy MD Work Phone: [employer] 05-19-2022 19:28-0400 Body weight 115.67 kg Erin Lacy MD Work Phone: [employer] 05-19-2022 19:25-0400 Body temperature 98.29 [degF] Erin Lacy MD Work Phone: [employer] 05-19-2022 19:25-0400 Diastolic blood pressure 68 mm[Hg] Erin Lacy MD Work Phone: [employer] 05-19-2022 19:25-0400 Heart rate 78 /min Erin Lacy MD Work Phone: [employer] 05-19-2022 19:25-0400 Respiratory rate 16 /min Erin Lacy MD Work Phone: [employer] 05-19-2022 19:25-0400 SaO2% (BldA) [Mass fraction] 98 % Erin Lacy MD Work Phone: [employer] 05-19-2022 19:25-0400 Systolic blood pressure 110 mm[Hg] Erin Lacy MD Work Phone: [employer] 05-11-2022 19:17-0500 Body height 160 cm Allegra Quinn MD Work Phone: [employer] 05-11-2022 19:17-0500 Body mass index (BMI) [Ratio] 45.06 kg/m2 Allegra Quinn MD Work Phone: [employer] 05-11-2022 19:17-0500 Body temperature 98.01 [degF] Allegra Quinn MD Work Phone: [employer] 05-11-2022 19:17-0500 Body weight 115.39 kg Allegra Quinn MD Work Phone: [employer] 05-11-2022 19:17-0500 Diastolic blood pressure 91 mm[Hg] Allegra Quinn MD Work Phone: [employer] 05-11-2022 19:17-0500 Heart rate 78 /min Allegra Quinn MD Work Phone: [employer] 05-11-2022 19:17-0500 Respiratory rate 18 /min Allegra Quinn MD Work Phone: [employer] 05-11-2022 19:17-0500 SaO2% (BldA) [Mass fraction] 96 % Allegra Quinn MD Work Phone: [employer] 05-11-2022 19:17-0500 Systolic blood pressure 121 mm[Hg] Allegra Quinn MD Work Phone: [employer] 10-12-2021 18:31-0400 Heart rate 93 /min Rishabh Mancini MD Work Phone: [employer] 10-12-2021 18:31-0400 Respiratory rate 16 /min Rishabh Mancini MD Work Phone: [employer] 10-12-2021 18:31-0400 SaO2% (BldA) [Mass fraction] 97 % Rishabh Mancini MD Work Phone: [employer] 10-12-2021 18:12-0400 Body height 160 cm Rishabh Mancini MD Work Phone: [employer] 10-12-2021 18:12-0400 Body mass index (BMI) [Ratio] 47.12 kg/m2 Rishabh Mancini MD Work Phone: [employer] 10-12-2021 18:12-0400 Body temperature 99.19 [degF] Rishabh Mancini MD Work Phone: [employer] 10-12-2021 18:12-0400 Body weight 120.66 kg Rishabh Mancini MD Work Phone: [employer] 10-12-2021 18:12-0400 Diastolic blood pressure 77 mm[Hg] Rishabh Mancini MD Work Phone: [employer] 10-12-2021 18:12-0400 Systolic blood pressure 126 mm[Hg] Rishabh Mancini MD Work Phone: [facility] [employer] 07-22-2021 10:38-0400 Body height 160 cm Clark Moser MD Work Phone: [facility] 07-22-2021 10:38-0400 Body mass index (BMI) [Ratio] 47.63 kg/m2 Clark Moser MD Work Phone: [facility] 07-22-2021 10:38-0400 Body temperature 97.3 [degF] Clark Moser MD Work Phone: [facility] 07-22-2021 10:38-0400 Body weight 121.97 kg Clark Moser MD Work Phone: [facility] 07-22-2021 10:38-0400 Diastolic blood pressure 88 mm[Hg] Clark Moser MD Work Phone: [facility] 07-22-2021 10:38-0400 Heart rate 104 /min Clark Moser MD Work Phone: [facility] 07-22-2021 10:38-0400 Respiratory rate 18 /min Clark Moser MD Work Phone: [facility] 07-22-2021 10:38-0400 SaO2% (BldA) [Mass fraction] 95 % Clark Moser MD Work Phone: [facility] 07-22-2021 10:38-0400 Systolic blood pressure 126 mm[Hg] Clark Moser MD Work Phone: [facility] 05-15-2021 09:11-0500 Body height [address] [facility] 05-14-2021 10:41-0500 Body height 160 cm Farhat Vang MD Work Phone: [facility] 05-14-2021 10:41-0500 Body mass index (BMI) [Ratio] 44.96 kg/m2 Farhat Vang MD Work Phone: [facility] 05-14-2021 10:41-0500 Body temperature 97.81 [degF] Farhat Vang MD Work Phone: [facility] 05-14-2021 10:41-0500 Body weight 115.12 kg Farhat Vang MD Work Phone: [facility] 05-14-2021 10:41-0500 Diastolic blood pressure 78 mm[Hg] Farhat Vang MD Work Phone: [facility] 05-14-2021 10:41-0500 Heart rate 98 /min Farhat Vang MD Work Phone: [facility] 05-14-2021 10:41-0500 Respiratory rate 18 /min Farhat Vang MD Work Phone: [facility] 05-14-2021 10:41-0500 SaO2% (BldA) [Mass fraction] 97 % Farhat Vang MD Work Phone: [facility] 05-14-2021 10:41-0500 Systolic blood pressure 124 mm[Hg] Farhat Vang MD Work Phone: [facility] 04-16-2021 10:15-0500 Body height 160 cm Farhat Vang MD Work Phone: [facility] 04-16-2021 10:15-0500 Body mass index (BMI) [Ratio] 44.44 kg/m2 Farhat Vang MD Work Phone: [facility] 04-16-2021 10:15-0500 Body temperature 98.01 [degF] Farhat Vang MD Work Phone: [facility] 04-16-2021 10:15-0500 Body weight 113.81 kg Farhat Vang MD Work Phone: [facility] 04-16-2021 10:15-0500 Diastolic blood pressure 78 mm[Hg] Farhat Vang MD Work Phone: [facility] 04-16-2021 10:15-0500 Heart rate 100 /min Farhat Vang MD Work Phone: [facility] 04-16-2021 10:15-0500 Respiratory rate 18 /min Farhat Vang MD Work Phone: [facility] 04-16-2021 10:15-0500 SaO2% (BldA) [Mass fraction] 96 % Farhat Vang MD Work Phone: [facility] 04-16-2021 10:15-0500 Systolic blood pressure 122 mm[Hg] Farhat Vang MD Work Phone: [facility] 03-23-2021 12:40-0500 Body height 160 cm Allegra Quinn MD Work Phone: [facility] [employer] 03-23-2021 12:40-0500 Body mass index (BMI) [Ratio] 44.46 kg/m2 Allegra Quinn MD Work Phone: [facility] [employer] 03-23-2021 12:40-0500 Body temperature 99.7 [degF] Allegra Quinn MD Work Phone: [facility] [employer] 03-23-2021 12:40-0500 Body weight 113.85 kg Allegra Quinn MD Work Phone: [facility] [employer] 03-23-2021 12:40-0500 Diastolic blood pressure 74 mm[Hg] Allegra Quinn MD Work Phone: [facility] [employer] 03-23-2021 12:40-0500 Heart rate 107 /min Allegra Quinn MD Work Phone: [employer] 03-23-2021 12:40-0500 Respiratory rate 16 /min Allegra Quinn MD Work Phone: [facility] [employer] 03-23-2021 12:40-0500 SaO2% (BldA) [Mass fraction] 96 % Allegra Quinn MD Work Phone: [employer] 03-23-2021 12:40-0500 Systolic blood pressure 131 mm[Hg] Allegra Quinn MD Work Phone: [facility] [employer] 01-15-2021 10:43-0500 Body height 160 cm Holland Ann MD Work Phone: [facility] 01-15-2021 10:43-0500 Body mass index (BMI) [Ratio] 42.55 kg/m2 Holland Ann MD Work Phone: [facility] 01-15-2021 10:43-0500 Body temperature 97.39 [degF] Holland Ann MD Work Phone: [facility] 01-15-2021 10:43-0500 Body weight 108.95 kg Holland Ann MD Work Phone: [facility] 01-15-2021 10:43-0500 Diastolic blood pressure 66 mm[Hg] Holland Ann MD Work Phone: [facility] 01-15-2021 10:43-0500 Heart rate 101 /min Holland Ann MD Work Phone: [facility] 01-15-2021 10:43-0500 SaO2% (BldA) [Mass fraction] 96 % Holland Ann MD Work Phone: [facility] 01-15-2021 10:43-0500 Systolic blood pressure 112 mm[Hg] Holland Ann MD Work Phone: [facility] 12-27-2020 18:15-0400 Body temperature 98.49 [degF] Wayne Springer MD Work Phone: [employer] Work Phone: 12-27-2020 18:15-0400 Diastolic blood pressure 77 mm[Hg] Wayne Springer MD Work Phone: [employer] Work Phone: Comment on above: Simultaneous filing. User may not have s een previous data. 12-27-2020 18:15-0400 Heart rate 98 /min Wayne Springer MD Work Phone: [employer] Work Phone: 12-27-2020 18:15-0400 Respiratory rate 20 /min Wayne Springer MD Work Phone: [employer] Work Phone: 12-27-2020 18:15-0400 SaO2% (BldA) [Mass fraction] 95 % Wayne Springer MD Work Phone: [employer] Work Phone: Comment on above: Simultaneous filing. User may not have s een previous data. 12-27-2020 18:15-0400 Systolic blood pressure 107 mm[Hg] Wayne Springer MD Work Phone: [employer] Work Phone: Comment on above: Simultaneous filing. User may not have s een previous data. 11-20-2020 21:07-0400 Body height 160 cm Allegra Quinn MD Work Phone: [employer] Work Phone: 11-20-2020 21:07-0400 Body mass index (BMI) [Ratio] 38.62 kg/m2 Allegra Quinn MD Work Phone: [employer] Work Phone: 11-20-2020 21:07-0400 Body temperature 98.6 [degF] Allegra Quinn MD Work Phone: [employer] Work Phone: 11-20-2020 21:07-0400 Body weight 98.88 kg Allegra Quinn MD Work Phone: [employer] Work Phone: 11-20-2020 21:07-0400 Diastolic blood pressure 65 mm[Hg] Allegra Quinn MD Work Phone: [employer] Work Phone: 11-20-2020 21:07-0400 Heart rate 84 /min Allegra Quinn MD Work Phone: [employer] Work Phone: 11-20-2020 21:07-0400 Respiratory rate 16 /min Allegra Quinn MD Work Phone: [employer] Work Phone: 11-20-2020 21:07-0400 SaO2% (BldA) [Mass fraction] 97 % Allegra Quinn MD Work Phone: [employer] Work Phone: 11-20-2020 21:07-0400 Systolic blood pressure 113 mm[Hg] Allegar Quinn MD Work Phone: [employer] Work Phone: 11-07-2020 16:28-0400 Body height 160 cm Nicholas Roger MD Work Phone: [employer] Work Phone: 11-07-2020 16:28-0400 Body mass index (BMI) [Ratio] 38.26 kg/m2 Nicholas Roger MD Work Phone: [employer] Work Phone: 11-07-2020 16:28-0400 Body temperature 98.8 [degF] Nicholas Roger MD Work Phone: [employer] Work Phone: 11-07-2020 16:28-0400 Body weight 97.98 kg Nicholas Roger MD Work Phone: [employer] Work Phone: 11-07-2020 16:28-0400 Diastolic blood pressure 71 mm[Hg] Nicholas Roger MD Work Phone: [employer] Work Phone: 11-07-2020 16:28-0400 Heart rate 98 /min Nicholas Roger MD Work Phone: [employer] Work Phone: 11-07-2020 16:28-0400 Respiratory rate 18 /min Nicholas Roger MD Work Phone: [employer] Work Phone: 11-07-2020 16:28-0400 SaO2% (BldA) [Mass fraction] 94 % Nicholas Roger MD Work Phone: [employer] Work Phone: 11-07-2020 16:28-0400 Systolic blood pressure 120 mm[Hg] Nicholas Roger MD Work Phone: [employer] Work Phone: 07-09-2020 10:52-0400 Body height 160 cm Zelda Bautista CNP Work Phone: [facility] 07-09-2020 10:52-0400 Body mass index (BMI) [Ratio] 41.27 kg/m2 Zelda Bautista CNP Work Phone: [facility] 07-09-2020 10:52-0400 Body weight 105.69 kg Zelda Bautista CNP Work Phone: [facility] 07-09-2020 10:52-0400 Diastolic blood pressure 70 mm[Hg] Zelda Bautista CNP Work Phone: [facility] 07-09-2020 10:52-0400 Heart rate 97 /min Zelda Bautista CNP Work Phone: [facility] 07-09-2020 10:52-0400 Systolic blood pressure 101 mm[Hg] Zelda Bautista CNP Work Phone: [facility] 06-24-2020 09:48-0400 Body mass index (BMI) [Ratio] 40.92 kg/m2 Allegra Quinn MD Work Phone: [employer] Work Phone: 06-24-2020 09:48-0400 Body temperature 97.9 [degF] Allegra Quinn MD Work Phone: [employer] Work Phone: 06-24-2020 09:48-0400 Body weight 104.78 kg Allegra Quinn MD Work Phone: [employer] Work Phone: 06-24-2020 09:48-0400 Diastolic blood pressure 64 mm[Hg] Allegra Quinn MD Work Phone: [employer] Work Phone: 06-24-2020 09:48-0400 Heart rate 120 /min Allegra Quinn MD Work Phone: [employer] Work Phone: 06-24-2020 09:48-0400 Respiratory rate 18 /min Allegra Quinn MD Work Phone: [employer] Work Phone: 06-24-2020 09:48-0400 SaO2% (BldA) [Mass fraction] 100 % Allegra Quinn MD Work Phone: [employer] Work Phone: 06-24-2020 09:48-0400 Systolic blood pressure 115 mm[Hg] Allegra Quinn MD Work Phone: [employer] Work Phone: 06-09-2020 10:44-0400 Body height 160 cm Lelo Gallegos MD Work Phone: [facility] 06-09-2020 10:44-0400 Body mass index (BMI) [Ratio] 41.27 kg/m2 Lelo Gallegos MD Work Phone: [facility] 06-09-2020 10:44-0400 Body weight 105.69 kg Lelo Gallegos MD Work Phone: [facility] 06-09-2020 10:44-0400 Diastolic blood pressure 75 mm[Hg] Lelo Gallegos MD Work Phone: [facility] 06-09-2020 10:44-0400 Heart rate 116 /min Lelo Gallegos MD Work Phone: [facility] 06-09-2020 10:44-0400 Systolic blood pressure 110 mm[Hg] Lelo Gallegos MD Work Phone: [facility] 03-26-2020 22:17-0500 Pulse (Heart Rate) 98 /min [facility] [place] [place] 03-26-2020 21:43-0500 BP Diastolic 66 mm[Hg] [facility] [place] [facility] [place] 03-26-2020 21:43-0500 BP Systolic 99 mm[Hg] [facility] [place] 03-26-2020 21:43-0500 Pulse Oximetry 95 % [facility]org[facility] [place] 03-26-2020 20:50-0500 Respiratory Rate 16 /min [facility] [place] 03-26-2020 20:13-0500 BMI (Body Mass Index) 40.14 kg/m2 Brie Jorgensen [facility] [place] 03-26-2020 20:13-0500 Body Temperature 98.2 [degF] [facility] [place] 03-26-2020 20:13-0500 Body weight 102.78 kg Brie Jorgensen [facility] [place] 02-15-2020 18:22-0500 BMI (Body Mass Index) 39.75 kg/m2 Brie Jorgensen [facility] [place] 02-15-2020 18:22-0500 Body Temperature 98.6 [degF] [facility] [place] 02-15-2020 18:22-0500 Body weight 101.79 kg Brie Jorgensen [facility] [place] 02-15-2020 18:22-0500 BP Diastolic 78 mm[Hg] Brie Jorgensen [facility] [place] 02-15-2020 18:22-0500 BP Systolic 127 mm[Hg] [facility] [place] 02-15-2020 18:22-0500 Height 160 cm Brie Jorgensen [facility] [place] 02-15-2020 18:22-0500 Pulse (Heart Rate) 92 /min Brie Jorgensen [facility] [place] 02-15-2020 18:22-0500 Pulse Oximetry 99 % Brie Jorgensen [facility] [place] 02-15-2020 18:22-0500 Respiratory Rate 20 /min Brie Moreno [facility], [place] 11-20-2019 18:48-0400 BP Diastolic 75 mm[Hg] [facility], [place] 11-20-2019 18:48-0400 BP Systolic 128 mm[Hg[facility] [place] 11-20-2019 18:48-0400 Pulse (Heart Rate) 83 /min [facility] 11-20-2019 18:48-0400 Pulse Oximetry 97 % [facility] 11-20-2019 18:48-0400 Respiratory Rate 18 /min [facility] 11-20-2019 17:00-0400 BMI (Body Mass Index) 36.31 kg/m2 [facility] 11-20-2019 17:00-0400 Body Temperature 98.4 [degF] [facility] 11-20-2019 17:00-0400 Body weight 92.[address] [facility] 11-03-2019 11:37-0400 BMI (Body Mass Index) 34.47 kg/m2 [facility] [place] 11-03-2019 11:37-0400 Body Temperature 98.71 [degF] [facility] [place] 11-03-2019 11:37-0400 Body weight 88.27 kg [facility], [place] 11-03-2019 11:37-0400 BP Diastolic 66 mm[Hg] [facility] 11-03-2019 11:37-0400 BP Systolic 117 mm[Hg] [facility] 11-03-2019 11:37-0400 Height 160 cm [facility] 11-03-2019 11:37-0400 Pulse (Heart Rate) 87 /min [facility], [place] 11-03-2019 11:37-0400 Pulse Oximetry 99 % [facility], [place] 11-03-2019 11:37-0400 Respiratory Rate 20 /min Wayne Springer [facility] [place] 08-13-2019 19:42-0400 BMI (Body Mass Index) 31 kg/m2 [facility] 08-13-2019 19:42-0400 Body Temperature 98.6 [degF] [facility] 08-13-2019 19:42-0400 Body weight 79.38 kg [facility] 08-13-2019 19:42-0400 Height 160 cm [facility] 08-13-2019 19:40-0400 BP Diastolic 60 mm[Hg] [facility] 08-13-2019 19:40-0400 BP Systolic 156 mm[Hg] [facility] 08-13-2019 19:40-0400 Pulse (Heart Rate) 138 /min [facility] 08-13-2019 19:40-0400 Pulse Oximetry 98 % [facility] 08-13-2019 19:40-0400 Respiratory Rate 16 /min [facility] 06-17-2019 12:45-0400 Respiratory Rate 18 /min [facility] 06-17-2019 07:54-0400 Body Temperature 97.81 [degF] [facility] 06-17-2019 07:54-0400 BP Diastolic 66 mm[Hg] [facility] [facility] 06-17-2019 07:54-0400 BP Systolic 99 mm[Hg] [facility] 06-17-2019 07:54-0400 Pulse (Heart Rate) 82 /min [facility] 06-17-2019 07:54-0400 Pulse Oximetry 94 % [facility] 06-14-2019 08:15-0400 BMI (Body Mass Index) 32.92 kg/m2 [facility] 06-14-2019 08:15-0400 Body weight 81.65 kg [facility] 06-14-2019 08:15-0400 Height 157.5 cm [facility] 06-14-2019 04:20-0400 Pulse (Heart Rate) 83 /min [facility] 06-14-2019 04:05-0400 BP Diastolic 58 mm[Hg] [facility] [place] 06-14-2019 04:05-0400 BP Systolic 95 mm[Hg] [facility] [place] [facility] [place] 06-14-2019 04:05-0400 Pulse Oximetry 95 % [facility] [place] [facility] [place] 06-14-2019 01:12-0400 Respiratory Rate 18 /min [facility] [place] 06-14-2019 00:10-0400 Body Temperature 100.51 [degF] [facility] [place] 06-13-2019 22:00-0400 BMI (Body Mass Index) 32.31 kg/m2 [facility] [place] 06-13-2019 22:00-0400 Body weight 82.74 kg [facility] [place] 06-13-2019 22:00-0400 Height 160 cm [facility] [place] 04-28-2019 19:58-0500 Body Temperature 98.8 [degF] [facility] [place] 04-28-2019 19:58-0500 BP Diastolic 70 mm[Hg] [facility] [place] 04-28-2019 19:58-0500 BP Systolic 98 mm[Hg] [facility] [place] 04-28-2019 19:58-0500 Pulse (Heart Rate) 119 /min [facility] [place] 04-28-2019 19:58-0500 Pulse Oximetry 100 % [facility] [place] 04-28-2019 19:58-0500 Respiratory Rate 30 /min [facility] [place] 04-28-2019 19:54-0500 BMI (Body Mass Index) 30.65 kg/m2 [facility] [place] 04-28-2019 19:54-0500 Body weight 78.47 kg [facility]lyn Jorgensen [facility] [place] , [place] 04-28-2019 19:54-0500 Height 160 cm Roslyn Jorgensen [facility] [place] Encounters Encounter Date Encounter Type Care Provider Facility Start: 07-26-2023 End: 07-27-2023 ambulatory LINDA SHEPPARD [facility] Start: 07-19-2023 End: 07-19-2023 ambulatory MARK ELIANA Not Available Start: 06-21-2023 End: 06-21-2023 ambulatory MARK ELIANA Not Available Start: 05-20-2023 End: 05-20-2023 ambulatory MARK ELIANA Not Available Start: 05-13-2023 End: 05-13-2023 Emergency department patient visit Jonathan Martinez Facility[facility] Start: 05-13-2023 End: 05-13-2023 Emergency department patient visit Jonathan Martinez [facility] Start: 05-11-2023 End: 05-12-2023 Emergency department patient visit Zac Fields Facility[facility] Start: 05-11-2023 End: 05-11-2023 Emergency department [facility] Start: 05-10-2023 End: 05-10-2023 Emergency department patient visit CHET BERUMEN [facility] Start: 05-10-2023 End: 05-10-2023 Emergency department patient visit CHET Wahl [facility] Start: 05-10-2023 End: 05-10-2023 Emergency department patient visit Chet Berumen DO Work Phone: [facility] ED Comment on above: Toothache (Primary D x); Dental decay Start: 12-27-2022 End: 12-28-2022 ambulatory MARK RAYRAY SALCEDOZIO [facility] Start: 11-23-2022 End: 11-24-2022 ambulatory MARK DUMONT [facility] Start: 09-04-2022 Emergency department patient visit LINDA SHEPPARD [facility] Start: 09-04-2022 End: 09-04-2022 Emergency department patient visit Erin Lacy MD Work Phone: [facility] ED Comment on above: Sprain of right ankl e, unspecified ligament, initial encounter (Primary Dx) Start: 06-29-2022 End: 06-30-[address] MARK DUMONT . Facility: Start: 06-29-2022 End: 06-30-2022 ambulatory Linda Sheppard Facility:[facility] Start: 06-29-2022 End: 06-29-2022 Pain Management Todd Smart [facility] Start: 06-14-2022 End: 06-14-[address] MARK DUMONT . Facility: Start: 05-19-2022 Emergency department patient visit Khushi GUARDADO~[id number] K[facility] Start: 05-19-2022 End: 05-19-2022 Emergency department patient visit Erin Lacy MD Work Phone: [facility] ED Comment on above: Dry socket (Primary Dx) Start: 05-11-2022 End: 05-11-2022 Emergency department patient visit [place] [facility] Start: 05-11-2022 End: 05-11-2022 Emergency department patient visit Allegra Quinn MD Work Phone: [facility] ED Comment on above: Masseter muscle spas m (Primary Dx); Other acute postprocedural pain Start: 03-30-[address] MARK DUMONT . Facili ty:[facility] Start: 03-29-2022 End: 03-29-2022 Subsequent hospital visit by physician [facility] Start: 10-12-2021 End: 10-12-2021 Emergency department patient visit Rishabh Mancini MD Work Phone: [facility] ED Comment on above: Acute bronchitis, un specified organism (Primary Dx) Start: 07-22-2021 End: 07-22-2021 Emergency department patient visit Clark Moser MD Work Phone: [facility] ED Comment on above: Acute pharyngitis, u nspecified etiology (Primary Dx) Start: 07-07-2021 ambulatory BRIE ROCA [facility] Start: 06-18-2021 [facility] Start: 06-17-2021 End: 06-18-2021 ambulatory [facility] Start: 05-15-2021 End: 05-19-2021 ambulatory [facility] Start: 05-15-2021 End: 05-15-2021 Nutrition therapy Farhat Vang MD Work Phone: [facility] Comment on above: Morbid obesity with body mass index (BMI) of 40.0 or higher (HCC) Start: 05-14-2021 End: 05-18-2021 [facility] Start: 05-14-2021 End: 05-14-2021 Office outpatient visit 15 minutes Farhat Vang MD Work Phone: [facility] Comment on above: Anxiety and depressi on (Primary Dx); At risk for obstructive sleep apnea; Chronic bilateral low back pain without sciatica; Hepatitis C antibody positive in blood; Body mass index 40.0-44.9, adult (HCC); History of opioid abuse (HCC) Start: 04-16-2021 End: 04-20-2021 ambulatory [facility] Start: 04-16-2021 End: 04-16-2021 Initial preventive medicine new pt age 18-39yrs Farhat Vang MD Work Phone: [facility] Comment on above: Encounter for genera l adult medical examination with abnormal findings (Primary Dx); Anxiety and depression; History of opioid abuse (HCC); Morbid obesity with body mass index (BMI) of 40.0 or higher (HCC) Start: 04-16-2021 End: 04-16-2021 Patient encounter status Farhat Vang MD Work Phone: [facility] Start: 03-23-2021 End: 03-23-2021 Emergency department patient visit Allegra Quinn MD Work Phone: [facility] ED Comment on above: COVID-19 (Primary Dx ); Omphalitis in adult Start: 02-16-2021 End: 02-20-2021 ambulatory YVONNE L. [facility] Start: 02-12-2021 End: 02-16-2021 ambulatory [facility]YS[facility] Start: 02-10-2021 End: 02-14-2021 ambulatory YVONNE Carey [facility] Start: 02-02-2021 End: 02-06-2021 ambulatory PHYSICIAN [facility] Start: 01-15-2021 Documentation procedure Jeimy Yumiko goodman [employer] [facility] Start: 01-15-2021 End: 01-15-2021 ambulatory HOLLAND ANN [facility] Start: 01-15-2021 End: 01-15-2021 Office outpatient new 30 minutes Holland Ann MD Work Phone: [facility] Comment on above: Hemorrhoids, unspeci fied hemorrhoid type Start: 12-29-2020 End: 01-02-2021 ambulatory PHYSICIAN [facility] Start: 12-27-2020 End: 12-27-2020 Emergency department patient visit Wayne Springer MD Work Phone: [facility] ED Comment on above: Viral syndrome (Prim prakash Dx) Start: 11-20-2020 End: 11-20-2020 Emergency department patient visit Allegra Quinn MD Work Phone: [facility] ED Comment on above: Strain of rhomboid m uscle, initial encounter; Chest wall muscle strain, initial encounter Start: 11-07-2020 End: 11-07-2020 Emergency department patient visit Nicholas Roger MD Work Phone: [facility] ED Comment on above: Viral URI (Primary D x) Start: 08-28-2020 End: 08-30-2020 Evaluation and management of inpatient [facility] Start: 08-25-2020 End: 08-25-2020 ambulatory PHYSICIAN [facility] Start: 07-29-2020 End: 08-02-2020 ambulatory PHYSICIAN [facility] Start: 07-22-2020 End: 07-26-2020 ambulatory LELO GALLEGOS [facility] Start: 07-22-2020 End: 07-22-2020 Telemedicine consultation with patient Lelo Gallegos MD Work Phone: [facility] Comment on above: Diet controlled gest ational diabetes mellitus (GDM) in third trimester Start: 07-10-[address] [facility] Start: 07-09-2020 End: 07-09-[address] [facility] Start: 07-09-2020 End: 07-09-2020 Office outpatient visit 15 minutes Zelda Bautista [employer] Work Phone: [facility]ocr[facility]ology [facility] Comment on above: Diet controlled gest ational diabetes mellitus (GDM) in third trimester (Primary Dx) Start: 06-24-2020 End: 06-24-2020 Emergency department patient visit Allegra Quinn MD Work Phone: [facility] ED Comment on above: Acute frontal sinusi tis, recurrence not specified (Primary Dx) Start: 06-10-2020 End: 06-10-2020 Nutrition therapy Lelo Gallegos Work Phone: [facility] Comment on above: Diet controlled gest ational diabetes mellitus (GDM) in second trimester Start: 06-09-2020 End: 06-09-2020 Office outpatient new 30 minutes Roslyn Stevenson MD Work Phone: [facility] Comment on above: Diet controlled gest ational diabetes mellitus (GDM) in second trimester Start: 05-27-2020 End: 05-31-2020 ambulatory PHYSICIAN [facility] Start: 05-21-2020 End: 05-25-2020 ambulatory PHYSICIAN [facility] Start: 03-26-2020 End: 03-26-2020 Emergency department patient visit Brie Moreno Work Phone: [facility] ED Comment on above: Atypical pneumonia ( Primary Dx) Start: 02-15-2020 End: 02-15-2020 Emergency department patient visit Kavitha Josh Work Phone: [facility] Comment on above: Pain, dental (Primar y Dx); Acute gingivitis; Alveolar osteitis Start: 11-20-2019 End: 11-20-2019 Emergency department patient visit Allegra Quinn Work Phone: [facility] Comment on above: Bacterial vaginosis (Primary Dx); Trichimoniasis; Furuncle of left axilla Start: 11-03-2019 End: 11-03-2019 Emergency department patient visit Wayne Springer Work Phone: [facility] ED Comment on above: Poison arabella (Primary Dx) Start: 08-20-2019 End: 08-21-2019 Patient encounter procedure HODA MADERA [facility] Start: 08-20-2019 End: 08-20-2019 Subsequent hospital visit by physician [facility] Start: 08-13-2019 End: 08-13-2019 Emergency department patient visit Christian Redmond Juan Work Phone: [facility] Emergency Department Comment on above: Heroin abuse (HCC) ( Primary Dx) Start: 06-20-2019 End: 06-20-2019 Patient encounter procedure Alisa Palencia Work Phone: [facility] Comment on above: Hepatitis C virus in fection without hepatic coma, unspecified chronicity (Primary Dx) Start: 06-18-2019 End: 06-18-2019 Documentation procedure Taryn Torres [facility] Start: 06-18-2019 Follow-up encounter Taryn Cartagena [facility] Comment on above: Transition Of Care Start: 06-18-2019 End: 06-18-2019 Patient encounter procedure Taryn Torres [facility] Start: 06-14-2019 End: 06-17-2019 Evaluation and management of inpatient [facility] Work Phone: [facility] Comment on above: Elevated LFTs; IVDA (intravenous drug abuse) complicating (HCC) Start: 06-13-2019 End: 06-14-2019 Emergency department patient visit Brie Moreno Work Phone: [facility] ED Comment on above: Abdominal pain, unsp ecified abdominal location (Primary Dx); Urinary tract infection with hematuria, site unspecified; Viral hepatitis without hepatic coma, unspecified chronicity, unspecified viral hepatitis type; Polysubstance abuse (HCC); Hyperbilirubinemia Start: 04-28-2019 End: 04-28-2019 Emergency department patient visit Roslyn Keating Work Phone: [facility] Comment on above: Accidental overdose of heroin, initial encounter (HCC) (Primary Dx) Start: 12-20-2016 End: 01-02-2020 Cancer cervix - screening done Lelo Gallegos MD Work Phone: [facility] Start: 12-20-2016 End: 01-02-2020 Encounter for gynecological examination (general) (routine) without abnormal findings Jeimyjv Tan [employer] [facility] Procedures Date Procedure Procedure Detail Performing Clinician Start: 09-04-2022 Radex ankle complete minimum 3 views Erin Lacy MD Work Phone: Start: 09-04-2022 Urine test visual color cmprsn xenias Erin Lacy MD Work Phone: Start: 05-11-2022 Ct maxillofacial w/o contrast material Allegra Quinn MD Work Phone: Start: 05-11-2022 Urine test visual color cmprsn meths Allegra Quinn MD Work Phone: Start: 03-29-2022 Gonadotropin chorion ic quantitative Amrk Rayray Dumont MD Work Phone: Start: 07-22-2021 COVID-19, RAPID Clark Moser MD Work Phone: Start: 07-22-2021 [place] streptococ cus group a Clark Moser MD Work Phone: Start: 03-23-2021 BASIC METABOLIC PANE L W/ REFLEX TO MG FOR LOW K Allegra Quinn MD Work Phone: Start: 03-23-2021 Blood count complete auto&auto difrntl wbc Allegra Quinn MD Work Phone: Start: 03-23-2021 COVID-19, RAPID Parish Quinn MD Work Phone: Start: 03-23-2021 [place] influenza Chr istopher M Kai MD Work Phone: Start: 12-29-2020 Microscopic observat ion [Identifier] in Cervix by Cyto stain Jeimy Tan SAUL Start: 12-27-2020 COVID-19, RAPID Wayne Springer MD Work Phone: Start: 12-27-2020 [place] streptococ cus group a Wayne Springer MD Work Phone: Start: 11-20-2020 Radex shoulder compl ete minimum 2 views Allegra Quinn Work Phone: Start: 07-09-2020 Hemoglobin glycosylated a1c Zelda Haywardottoniel Bautista [facility] Work Phone: Start: 06-09-2020 Hemoglobin glycosylated a1c Lelo Gallegos MD Work Phone: Start: 03-26-2020 COVID-19 Brie Branham Work Phone: Start: 03-26-2020 Urnls [...] panel - Blood by Automated count Indra Matthew Pruitt Work Phone: Start: 06-16-2019 Comprehensive metabo lic 2000 panel - Serum or Plasma Indra Matthew Pruitt Work Phone: Start: 06-15-2019 Radionuclide hepatob iliary study Indra Matthew Pruitt Work Phone: Start: 06-15-2019 Bilirubin.direct [Mass/volume] [...] Mri abdomen w/o cont rast material Indra Matthew Pruitt Work Phone: Start: 06-14-2019 Drugs of abuse urine screening test Indra Matthew Pruitt Work Phone: Start: 06-14-2019 Urinalysis Carli Ro constantine Sims Work Phone: Start: 06-14-2019 Acetaminophen [Mass/ volume] in Serum or Plasma Indra Pruitt Work Phone: Start: 06-14-2019 Bilirubin.direct [Mass/volume] in Serum or Plasma Indra Matthew Pruitt Work Phone: Start: 06-14-2019 Complete blood count with white cell differential, automated Indraaaorn Pruitt Work Phone: Start: 06-14-2019 Complete blood count with white cell differential, manual Indraaaron Pruitt Work Phone: Start: 06-14-2019 Comprehensive metabo lic 2000 panel - Serum or Plasma Indraaaron Pruitt Work Phone: Start: 06-14-2019 Hepatitis panel measurement Indra Pruitt Work Phone: Start: 06-14-2019 INR in Platelet poor plasma by Coagulation assay Indra Pruitt Work Phone: Start: 06-14-2019 Lactate [Moles/volum e] in Serum or Plasma Indra Pruitt Work Phone: Start: 06-14-2019 Manual Differential panel - Blood Indra Pruitt Work Phone: Start: 06-14-2019 Red blood cell morphology Indra Pruitt Work Phone: Start: 06-14-2019 Salicylates [Mass/vo lume] in Serum or Plasma Indra Pruitt Work Phone: Start: 06-14-2019 US scan of upper abdomen Indra Pruitt Work Phone: Start: 06-13-2019 Ct abdomen & pelvis w/contrast material Brie Moreno Work Phone: Start: 06-13-2019 Urinalysis microscopic only Brie Mossus Work Phone: Start: 06-13-2019 Urine test visual color cmprsn meths Brie Mossus Work Phone: Start: 06-13-2019 Urnls dip stick/tabl et rgnt auto w/o microscopy Brie Mossus Work Phone: Start: 06-13-2019 Assay of amylase Brie Benjamin Strus Work Phone: Start: 06-13-2019 Assay of lipase Brie Benjamin Strus Work Phone: Start: 06-13-2019 Blood count complete auto&auto difrntl wbc Brie Benjamin Strus Work Phone: Start: 06-13-2019 Drug screen class list a Brie Benjamin Strus Work Phone: Start: 06-13-2019 Lactate [Moles/Vol] Mar zak Benjamin Strus Work Phone: Start: 06-13-2019 Prothrombin time Brie Moreno Work Phone: Start: 06-13-2019 Thromboplastin time partial plasma/whole blood Brie Moreno Work Phone: Start: 05-18-2019 Adult depression scr eening assessment [facility] Start: 08-05-2016 Microscopic observat ion [Identifier] in Cervix by Cyto stain [facility] Start: 04-05-2011 Microscopic observat ion [Identifier] in Cervix by Cyto stain Erin Lacy MD Work Phone: Human , f unction (observable entity) [employer] Comment on above: x4 Plan of Treatment Date Care Activity Detail Author Start: 2040 Shingles Vaccine (1 of 2) Shingles Vacc[facility] ([facility] 2) [facility] [place], [place] Start: 12-29-2025 Screening for malignant neoplasm of cervix Pap Smear [facility] Start: 10-31-2024 Screening for malignant neoplasm of cervix Pap Smear [facility] Start: 12-30-2023 Screening for malignant neoplasm of cervix [facility] [employer] Start: 10-31-2022 Screening for malignant neoplasm of cervix [employer] Work Phone: Start: 10-05-2022 Influenza vaccination Flu vaccine (#1) [facility] Start: 04-16-2022 History and physical examination, annual for health maintenance Wellness Visit [facility] Start: 02-13-2022 Depression Remission Assessment (PHQ9) Depression Remission Assessment (PHQ9) [facility] Start: 12-29-2021 History and physical examination, annual for health maintenance Wellness Visit [facility] Start: 11-12-2021 End: 11-12-2021 Patient encounter procedure 11/12/2021 Office Visit Primary Care Farhat Vang MD [address] [id number] [facility] Start: 11-05-2021 Influenza vaccination [facility] Start: 10-05-2021 Influenza vaccination Flu vaccine (#1) [facility] Start: 06-26-2021 End: 06-26-2021 Nutrition therapy 06/26/2021 Nutrition Nutrition Farhat Vang MD [address] [facility] [address] [place] [address] [facility] Start: 05-15-2021 End: 05-15-2021 Nutrition therapy 05/15/2021 Nutrition Nutrition Angelito Harvey RD [facility] Start: 05-14-2021 End: 05-14-2021 Patient encounter procedure 05/14/2021 Office Visit Primary Care Farhat Vang MD [address] [facility] [address] [place] [address] [facility] Start: 03-17-2021 Depression screening using PHQ-9 (Patient Health Questionnaire 9) score Depression Screening (PHQ9) [facility] Start: 01-15-2021 Depression Remission Assessment (PHQ9) Depression Remission Assessment (PHQ9) [facility] Start: 01-09-2021 Hemoglobin A1c measurement A1C [facility] Start: 12-09-2020 HbA1c (Bld) [Mass fraction] A1C [facility] Start: 12-09-2020 Hemoglobin A1c measurement A1C [facility] Start: 11-05-2020 Influenza vaccination [facility] Start: 10-31-2020 History and physical examination, annual for health maintenance Wellness Visit [facility] Start: 08-28-2020 End: 08-28-2020 Admission to same day surgery center 08/28/2020 Surgery Obstetrics Roslyn Stevenson MD [address] [place] [address] [phone] SECTION [facility] Delivery Comment on above: SECTION Start: 08-28-2020 Subsequent hospital visit by physician 08/28/2020 Hospital Encounter Obstetrics Roslyn Stevenson MD [address] [place] [address] [phone] [facility] Labor [facility] Delivery Start: 08-25-2020 End: 08-25-2020 Office Visit 08/25/2020 Office Visit Endocrinology Zelda Bautista, [employer]AR[employer] TE[employer] [address] [place] [address] [phone] [facility] Start: 07-31-2020 End: 07-31-2020 Office Visit 07/31/2020 Office Visit Endocrinology Benito Krueger, [employer]AR[employer] [address] [place] [address] [phone] [facility] Start: 07-29-2020 End: 07-29-2020 Patient encounter procedure 07/29/2020 Routine Obstetrics and Gynecology Regla Dias CNM [address] [place] [phone] [employer] [facility] Start: 07-22-2020 End: 07-22-2020 Telemedicine consultation with patient 07/22/2020 Telemedicine Nutrition Lelo Gallegos MD [address] [place] [address] [phone] Neris Ulloa [facility] Services Start: 07-17-2020 End: 07-17-2020 Patient encounter procedure 07/17/2020 Routine Obstetrics and Gynecology Yvonne Santos MD [address] [place] [phone] [employer] - [facility] Start: 07-09-2020 End: 07-09-2020 Office Visit 07/09/2020 Office Visit Endocrinology Zelda Bautista, POLARITY TE[employer] [address] [place] [address] [phone] [facility] Start: 07-04-2020 End: 07-04-2020 Patient encounter procedure 07/04/2020 Routine Obstetrics and Gynecology Radha Pantoja MD [address] [place] [phone] [employer] - [facility] Start: 06-26-2020 End: 06-26-2020 Patient encounter procedure 06/26/2020 Office Visit Endocrinology Janie Chen PA-C [facility] [place] [address] [phone] [facility] Start: 06-24-2020 End: 06-24-2020 Nutrition [facility] Start: 06-19-2020 End: 06-19-2020 Routine 06/19/2020 Routine Obstetrics and Gynecology Regla Dias, CNM [address] [place] [phone] [employer] - [facility] Start: 05-17-2020 Depression screening using PHQ-9 (Patient Health Questionnaire 9) score Depression Screening (PHQ9) [facility] Start: 2020 Screening for malignant neoplasm of cervix [facility] Start: 02-26-2020 End: 02-26-2020 Initial 02/26/2020 Initial Obstetrics and Gynecology Jai Huerta MD 27 [facility] [address] [place] [address] [facility] [employer]OMOBIL[employer] SALESPERSON Start: 11-06-2019 Influenza vaccination [place] Start: 11-06-2019 Influenza vaccination given [facility] Start: 08-06-2019 Screening for malignant neoplasm of cervix Pap Smear [facility] Start: 06-20-2019 End: 06-20-2019 Office Visit 06/20/2019 Office Visit Transition of Care Alisa Palencia, POLARITY TESTER [address] [facility] [address] [place] [address] [phone] [facility] Start: 11-05-2018 Influenza vaccination Flu vaccine (#1) [place] Start: 11-05-2018 Influenza vaccination given Sequential Influenza Vaccine (#1) [facility] Start: 03-21-2015 Cervical cancer screen Cervical cancer screen [place] Start: 03-21-2015 Screening for malignant neoplasm of cervix Cervical cancer screen [place] Start: 04-05-2014 Screening for malignant neoplasm of cervix Pap smear ALEXANDRA [facility] Start: 2009 DTaP/Tdap/Td vaccine (1 - Tdap) DTaP/Tdap/Td vaccine (1 - Tdap) [place] Start: 2009 Hepatitis B vaccine (1 of 3 - Risk 3-dose series) Hepatitis B vaccine (1 of 3 - Risk 3-dose series) [facility] Work Phone: Start: 2008 Hepatitis C screening Hepatitis C screen [facility] Start: 2006 COVID-19 Vaccine (1) COVID-19 Vaccine (1) [facility] Start: 2005 HIV screen HIV screen [place] Start: 2005 HIV screening HIV screen [facility] Start: 2002 COVID-19 Vaccine (1) COVID-19 Vaccine (1) [facility] Start: 2002 Depression Monitoring Depression Monitoring [facility] Start: 2001 DTaP/Tdap/Td vaccine (1 - Tdap) DTaP/Tdap/Td vaccine (1 - Tdap) [place] Start: 2001 DTaP/Tdap/Td vaccine (5 - Tdap) DTaP/Tdap/Td vaccine (5 - Tdap) [facility] Start: 2000 Albumin DL <= 20 mg/L (U) [Mass/Vol] Urine Microalbumin [facility] Start: 2000 Diabetic foot examination Foot Exam [facility] Start: 2000 Microalbumin measurement, urine, quantitative Urine Microalbumin [facility] Start: 2000 Ophthalmic examination and evaluation Ophthalmology Exam [facility] Start: 1996 Pneumococcal 0-64 years Vaccine (1 of 1 - PPSV23) Pneumococcal 0-64 years Vaccine (1 of 1 - PPSV23) [place] Start: 1996 Pneumococcal Vaccine: Ped or At-Risk (1 of 2 - PPSV23) Pneumococcal Vaccine: Ped or At-Risk (1 of 2 - PPSV23) [facility] Start: 1995 COVID-19 Vaccine (1) COVID-19 Vaccine (1) [facility] Start: 1993 History and physical examination, annual for health maintenance Wellness Visit [facility] Start: 1991 Varicella vaccine (1 of 2 - 2-dose childhood series) Varicella vaccine (1 of 2 - 2-dose childhood series) [facility] Start: 1990 COVID-19 Vaccine (#1) COVID-19 Vaccine (#1) [facility] Start: 1990 Hepatitis B vaccine (1 of 3 - 3-dose series) Hepatitis B vaccine (1 of 3 - 3-dose series) [facility] Start: 1990 Hepatitis C screening Hepatitis C screen [facility] Start: 1990 Tetanus vaccination Tetanus: Every 10yrs [facility] Anti smooth muscle antibody IgA level Anti-Smooth Muscle Antibody Lab Add-On 06/15/2019 1:50 PM EDT [facility] Antimitochondrial antibody titer Antimitochondrial Antibody Lab Add-On 06/15/2019 1:50 PM EDT [facility] End: 11-20-2019 C.trachomatis N.gonorrhoeae DNA, Urine C.trachomatis N.gonorrhoeae DNA, Urine Microbiology STAT One Time for 1 Occurrences starting 11/20/2019 until 11/20/2019 [place] Comment on above: One Time for 1 Occurrences starting 11/05 until 11/20/2019 C.trachomatis N.gonorrhoeae DNA, Urine C.trachomatis N.gonorrhoeae DNA, Urine Microbiology Stat [employer] Label print 11/20/2019 5:55 PM EDT [place] End: 03-26-2020 Covid-19 Ambulatory Covid-19 Ambulatory Lab Routine Once for 1 Occurrences starting 03/26/2020 until 03/26/2020 [place] Comment on above: Once for 1 Occurrences starting 03/26/19 21 until 03/26/2020 Covid-19 Ambulatory Covid-19 Amb ulatory Lab Routine 03/26/2020 8:44 PM [place], [place] End: 06-13-2019 Culture, Blood 1 Culture, Blood 1 Microbiology STAT One Time for 1 Occurrences starting 06/13/2019 until 06/13/2019 [place] Comment on above: One Time for 1 Occurrences starting 10/2019 until 06/13/2019 Culture, Blood 1 [facility] [place], [place] End: 03-23-2021 Culture, Wound hyaqu Phone: Comment on above: One Time for 1 Occurrences starting 03/07 until 03/23/2021 Cytomegalovirus DNA assay CMV DN A Detection and Quant, Blood Lab Routine 06/15/2019 1:50 PM EDT [facility] Kirsten-Hazel Virus P CR, Quantitative Kirsten-Hazel Virus PCR, Quantitative Lab Routine 06/15/2019 1:50 PM EDT [facility] End: 04-16-2022 Hemoglobin A1c/Hemoglobin.total in Blood Hemoglobin A1c Lab Routine Encounter for general adult medical examination with abnormal findings 1 Occurrences starting 04/16/2021 until 04/16/2022 [facility] Work Phone: Comment on above: 1 Occurrences starting 04/16/2021 until 04/16/2022 Hemoglobin A1c/Hemoglobin.total in Blood Hemoglobin A1c Lab Routine Encounter for general adult medical examination with abnormal findings 04/16/2021 10:58 AM [facility] End: 04-16-2022 Hepatitis C antibody measurement Hepatitis C Antibody Lab Routine Encounter for general adult medical examination with abnormal findings 1 Occurrences starting 04/16/2021 until 04/16/2022 [facility] Comment on above: 1 Occurrences starting 04/16/2021 until 04/16/2022 Hepatitis C antibody measurement Hepatitis C Antibody Lab Routine Encounter for general adult medical examination with abnormal findings 04/16/2021 10:58 AM [facility] MDI Treatment MDI Treatment Re spiratory Care Routine Every 6hr As Needed until discontinued starting 03/26/2020 [facility] [place] Comment on above: Every 6hr As Needed until discontinued s tarting 03/26/2020 Nuclear Ab IF (S) [Titer] KENIA La b Add-On 06/15/2019 1:50 PM EDT [facility] End: 06-24-2020 Urinalysis, reflex to microscopic Urinalysis, reflex to microscopic Lab STAT One Time for 1 Occurrences starting 06/24/2020 until 06/24/2020 hyaqu Phone: Comment on above: One Time for 1 Occurrences starting 06/06 until 06/24/2020 End: 05-14-2022 XR Lumbar Spine Complete AP/Lat w Obls XR Lumbar Spine Complete AP/Lat w Obls Imaging Routine Chronic bilateral low back pain without sciatica 1 Occurrences starting 05/14/2021 until 05/14/2022 [employer] Work Phone: Comment on above: 1 Occurrences starting 05/14/2021 until 05/14/2022 Payers Date Payer Category Payer Medicaid [facility] [id number] 2021-Present [phone] [address] [place] [address] [id number]. [id number] 2021 Unknown [id number] 1.2.840.685872.1.13.239.2. 7.3.884902.315 2017 Medicaid [id number] 1.2.840.087901.1.13.385.2. 7.3.241821.315 2012 Medicaid [id number] 1.2.840.034108.1.13.239.2. 7.3.611762.315 2012 Medicaid [id number] 2008 Private Health Insurance [id number] 1990 Unknown [id number] 2.16.840.1.039414.3.579.2. 173 1990 Unknown [id number] 2.16.840.1.410058.3.579.2. 900 1990 Unknown [id number] 2.16.840.1.082936.3.579.2. 900 1990 Unknown [id number] 2.16.840.1.601888.3.579.2. 900 1990 Unknown [id number] 2.16.840.1.445196.3.579.2. 900 1990 Unknown [id number] 2.16.840.1.423998.3.579.2. 900 1990 Unknown [id number] 2.16.840.1.826700.3.579.2. 900 1990 Unknown [id number] 2.16.840.1.285230.3.579.2. 900 1990 Unknown [id number] 2.16.840.1.585325.3.579.2. 903 1990 Unknown [id number] 2.16.840.1.953556.3.579.2. 903 1990 Unknown [id number] 2.16.840.1.304675.3.579.2. 903 1990 Unknown [id number] 2.16.840.1.058436.3.579.2. 903 1990 Unknown [id number] 2.16.840.1.625206.3.579.2. 90 1990 Unknown [id number] 2.16.840.1.301182.3.579.2. 903 1990 Unknown [id number] 2.16.840.1.834888.3.579.2. 903 1990 Unknown [id number] 2.16.840.1.382734.3.579.2. 903 1990 Unknown [id number] 2.16.840.1.927607.3.579.2. 903 1990 Unknown [id number] 2.16.840.1.797719.3.579.2. 903 1990 Unknown [id number] 2.16.840.1.429556.3.579.2. 903 1990 Unknown [id number] 2.16.840.1.132118.3.579.2. 903 1990 Unknown [id number] 2.16.840.1.433675.3.579.2. 903 1990 Unknown [id number] 2.16.840.1.625014.3.579.2. 903 1990 Unknown [id number] 2.16.840.1.836277.3.579.2. 903 1990 Unknown [id number] 2.16.840.1.087402.3.579.2. 593 1990 Unknown [id number] 2.16.840.1.671398.3.579.2. 593 1990 Unknown [id number] 2.16.840.1.183966.3.579.2. 593 1990 Unknown [id number] 2.16.840.1.989397.3.579.2. 593 1990 Unknown [id number] 2.16.840.1.863844.3.579.2. 174 1990 Unknown [id number] 2.16.840.1.793349.3.579.2. 174 1990 Unknown [id number] 2.16.840.1.768736.3.579.2. 174 1990 Unknown [id number] 2.16.840.1.427773.3.579.2. 174 1990 Unknown [id number] 2.16.840.1.373067.3.579.2. 174 1990 Unknown [id number] 2.16.840.1.919686.3.579.2. 174 1990 Unknown [id number] 2.16.840.1.745551.3.579.2. 174 1990 Unknown [id number] 2.16.840.1.156186.3.579.2. 727 1990 Unknown [id number] 2.16.840.1.508871.3.579.2. 727 1990 Unknown [id number] 2.16.840.1.648983.3.579.2. 727 1990 Unknown [id number] 2.16.840.1.898096.3.579.2. 1259 1990 Unknown [id number] 2.16.840.1.352996.3.579.2. 1259 1990 Unknown [id number] 2.16.840.1.774751.3.579.2. 1259 1990 Unknown [id number] 2.16.840.1.983487.3.579.2. 175 1959 Unknown [id number] Social History Date Type Detail Facility Start: 04-28-2019 End: 11-03-2019 Tobacco smoking status NHIS Current every day smoker [place] End: 02-15-2020 History of tobacco use Cigarette Smoker [place] Start: 04-28-2019 End: 09-04-2022 Cigarettes smoked current (pack per day) - Reported [facility] Start: 04-28-2019 Alcohol intake Current drinke r of alcohol (finding) [place] Start: 1990 Sex Assigned At Not on file [place] Start: 06-13-2019 End: 05-10-2023 Alcohol intake Ex-drinker (finding) [facility] Y Exposure to SARS-CoV -2 (event) Unable to assess [place] Start: 05-18-2019 End: 04-16-2021 History SDOH Alcohol Frequency 3 [facility] Start: 05-18-2019 End: 07-16-2020 History SDOH Alcohol Std Drinks 5 [facility] Start: 05-04-2021 End: 05-19-2022 Exposure to SARS-CoV-2 (event) Not sure [facility] Start: 11-20-2019 End: 04-01-2020 [facility] use and exposure [facility] [employer] Start: 06-09-2020 End: 05-11-2023 Tobacco smoking status NHIS Former smoker [facility] End: 02-15-2020 History of tobacco use Current smoker [facility] Start: 12-09-2019 [facility] Start: 04-16-2021 History SDOH Social Connections Get [facility] 4 [facility] Start: 04-16-2021 History SDOH Food Worry 1 [facility] Start: 09-04-2022 Sex Assigned At Female F [facility] Start: 09-04-2022 History SDOH Alcohol Frequency 2 [place] How often to you hav e a drink containing alcohol? Monthly or less [place] Average Number of Drinks Not on file [facility] Q.ME Medical Equipment Procedure Code Equipment Code Equipment Origin al Text Equipment Identifier Dates Use to check BG QID Dx O24.14 . [id number] Start: 06-09-2020 Use as instructe d to check BG QID Dx O24.14 . [id number] Start: 06-09-2020 End: 06-11-2020 use to test BLOO D SUGAR FOUR TIMES DAILY [id number] Start: 06-09-2020 Goals Date Patient Goal Desired Activity /State Functional Status Date Assessment Result Facility 05-13-2023 Functional Status N/A [facility] 05-11-2023 Functional Status N/A [facility] 06-29-2022 Functional Status N/A [facility] Clinical Notes 06-09-2020 to 05-13-2023 Note [...] Follow these instructions at home: Medicines Take waiw-ynr-ebatzlw and prescription medicines only as told by [...] provider. Document Revised: 04/30/2021 Document Reviewed: 04/30/2021 [employer] Patient Education 2022 [employer] Follow Up Care 05/13/2023 11:20:07 With:[place] [facility] Address: [address] [place] [address] [place] [address] Business (1) When:05/16/2023 12:45:32 Comments:Dentistry follow-up [facility] 05-12-2023 Hospital Discharg e instructions Patient Education 05/11/2023 23:33:09 Dental Pain, Zgft-ld-Dtak Dental Pain Dental pain is often a [...] Follow these instructions at home: Medicines Take cufx-mvc-nplflmg and prescription medicines only as told by [...] damage to the area. Brushing your teeth [place] your teeth twice a day using a [...] only when you eat or drink. Take miin-qvh-bhyxitb and prescription medicines only as told by your dentist. Watch your dental pain for any changes. Let your dentist know if symptoms get worse. This information is not intended to replace advice given to you by your health care provider. Make sure you discuss any questions you have with your health care provider. Document Revised: 11/26/2020 Document Reviewed: 11/26/2020 [employer] Patient Education 2022 [employer]. Follow Up Care 05/11/2023 21:26:40 With:Linda Sheppard DO Address: [address] [place] [address] Anaya, [place]g , [address] [address]- When:05/14/2023 [facility] 05-11-2023 Evaluation + Plan note Extrac roxann from: Title:ED Note Author:Violet Walters PA-C ate:05/11/23 1. Pain, dental (K08.89: Oth er specified disorders of teeth and supporting structures) Ordered: amoxicillin-clavulanate, = 1 tab(s), Oral, q12hr, X 7 day(s), # 14 tab(s), Refills(s) 0, Pharmacy: [facility] #16, 160, cm, 05/11/23 21:53:00 EST, Height/Length Dosing, 110, kg, 05/11/23 21:53:00 EST, Weight Dosing chlorhexidine topical, 0.018 gm, 15 mL, Oral, BID, 480 mL, Refill(s) 0, (swish and spit; do not swallow), [facility] #[facility], 160, cm, 05/11/23 21:53:00 EST, Height/Length Dosing, 110, kg, 05/11/23 21:53:00 EST, Weight Dosing 2. Infected dental caries (K02.9: Dental caries, unspecified) Ordered: amoxicillin-clavulanate, = 1 tab(s), Oral, q12hr, X 7 day(s), # 14 tab(s), Refills(s) 0, Pharmacy: [facility] #16, 160, cm, 05/11/23 21:53:00 EST, Height/Length Dosing, 110, kg, 05/11/23 21:53:00 EST, Weight Dosing chlorhexidine topical, 0.018 gm, 15 mL, Oral, BID, 480 mL, Refill(s) 0, (swish and spit; do not swallow), [facility] #16, 160, cm, 05/11/23 21:53:00 EST, Height/Length Dosing, 110, kg, 05/11/23 21:53:00 EST, Weight Dosing 3. First trimester (Z34.91: Encounter for supervision of normal , unspecified, first trimester) Periapical abscess without sinus (K04.7: Periapical abscess without sinus) Orders: ketorolac, 30 mg = 1 mL, Injection, IntraMuscular, Once, Stop date 05/11/23 23:31:00 EST, STAT, Start date 05/11/23 23:31:00 EST, 05/11/23 23:31:00 EST [facility]03-05-2024 Hospital Discharge instructions* Discharge Instructions* Chet Berumen DO - 05/10/2023 11:50 AM EST Use amoxicillin as prescribed. Use Tylenol as needed for pain. Follow-up with dentist as soon as possible. * Attachments The following attachments cannot be sent through Care Everywhere. * Tooth Decay (Egyptian) * Tooth and Gum Pain (Egyptian) documented [facility] History of Present illness Narrative* Angelito Harvey, MATIAS - 05/15/2021 8:39 AM EST Patient Name: [...] Supplements: Reviewed Current Outpatient Medications Ordered in [facility] Medication Sig Dispense Refill baclofen (LIORESAL) [...] mg by mouth daily . No current [facility]-ordered facility-administered medications on file. Lab Results [...] - 6-7 PM- crock pot meals- goulash; Bangladeshi chicken; spicy rice with chicken and beans; [...] gradual weight loss of 1-2#/week. Recommended using MyTCHOPal to track daily calorie intake.Reviewed weight loss tips. Reviewed sample meal plans to meet calorie goals/day. Estimated Nutritional Needs: Calorie Needs: 1341-7596 kcals/day (MSJ x 1.3AF -500-1000 to promote gradual weight loss) Patient/Family Education: Learner: family and patient Readiness: action - ready to set action plan and implement goals Barriers to Learning: none Method: explanation and handout Response: verbalizes understanding Expected Adherence: good Education Materials Provided: Healthy Meal Planning handout ([facility]), Goal Sheet, 1,669-Qskkldg0-Yrm Menus (NCM), 1,800-Calorie 5-Day Menus (NCM), Weight Loss Tips (NCM) Monitoring/Evaluation: Lab results, weight, food recall, meal planning, goal achievement, physical activity, medication management. This documentation has been sent to the referring healthcare provider. Angelito Harvey RDN, Personal Office documented in this [id number] History of Present illness Narrative* Farhat Vang [...] C hepatitis virus. Patient was referred to underground bolting machine operator and the recommendation was made for a [...] improve, for Follow Up. documented in this [id number] History of Present illness Narrative* Farhat Vang [...] current medications that are prescribed by her realty loan specialist. She has 4 children at home [...] mass index (BMI) of 40.0 or higher ([facility]) Relevant Orders Ambulatory referral to Nutrition Services [...] Not difficult at all documented in this [id number] History of Present illness Narrative* Holland Ann [...] Procedure: SECTION; Surgeon: Roslyn Stevenson MD; Location: [facility] OR; Service: OBGYN SECTION, LOW TRANSVERSE 3 [...] Friends and Family: Not on file Attends Rastafarian Services: Not on file Active Member of [...] Report 12/29/2020 Final Value:Gynecologic Cytology Report Case: [id number] Authorizing Provider: Germania Valentino, Collected: 12/29/2020 11:09 AM POLARITY TESTER Ordering Location: [facility] AUTOMOBILES SALESPERSON - An Received: 12/30/2020 12:03 PM [facility] First Screen: Violet Craig Rescreen: Talya [...] from every slide are reviewed by a sand caster. Specimen processing and Primary Screening performed at: [place] [address] HPV Results 12/29/2020 Final Value:This result contains [...] physician. Holland Ann MD documented in this [id number] History of Present illness Narrative* Jeimy Tan LPN - 01/15/2021 11:17 AM EST This nurse acted as a hydraulic boom operator for a rectal exam by Dr. Ann for Tia. Tia verbalized consent to be examined, appeared comfortable and tolerated the exam well. documented in this [id number] History of Present illness Narrative* Neris Ulloa, [...] no 2) I will try yoga on [employer] - yes but didn't feel comfortable doing [...] oatmeal packet. Snack celery + PB or Cymro yogurt or green peppers. Lunch - will be light if full from snack and may have an early dinner. Dinner - pork chops, steamed vegetables. Snack - Cymro yogurt or vegetables or watermelon. Beverages - [...] prescription for Current Outpatient Medications Ordered in [facility] Medication Sig Dispense Refill blood sugar [...] BLOOD SUGAR FOUR TIMES DAILY No current [facility]-ordered facility-administered medications on file. SMBG Results: 86-163. [...] the referring healthcare provider. documented in this [id number] Instructions* Patient Instructions* Zelda Bautista CNP - [...] to renew/prescribe testing supplies. documented in this [id number] History of Present illness Narrative* Zelda Bautista [...] visit with us. The patient did bring [employer]od sugar meter with her for download today however there is not many readings on it. She states she started a new job at [employer] and does noise get breaks to check [...] control the weight and metabolism of the . She is to report BG to office [...] 4. Patient to cont. To follow with concrete stone finisher 5. Patient will require 2 hour 75 gram OGTT 8-12 weeks after delivery. 6. Follow-up in 2 weeks. Risks and potential complications of diabetes were reviewed with the patient. Electronically signed by Zelda MARIN 07/09/2110:03 AM documented in this [id number] History of Present illness Narrative* Lelo Gallegos [...] father, paternal grandmother, paternal uncle. Previous pregnancies: 2011 female 5 pounds 15 ounces 2011 female [...] control the weight and metabolism of the . Patient was instructed on the use of a BG meter and referred for dietary education. She is to report BG to office on a weekly basis, or more often if above target range. Hemoglobin A1C was tested today and will be tested q month during . While awaiting appointment with concrete stone finisher, patient provided with details of GDM diet, [...] 1 hour post prandial. 4. Referral to concrete stone finisher 5. Patient will require 2 hour 75 gram OGTT 8-12 weeks after delivery. 6. Follow-up in 2 weeks. Risks and potential complications of diabetes were reviewed with the patient. documented [facility] + Plan note No data available for this section [facility] Diagnosis Diet controlled gestational diabetes mellitus (GDM) in second trimester documented in this encounter [facility] note* Diagnosis Acute frontal sinusitis, recurrence not specified- Primary documented in this encounter hyaqu Phone: evalluntgk note* Diagnosis Diet controlled gestational diabetes mellitus (GDM) in third trimester- Primary documented in this encounter [facility] note* Diagnosis Diet controlled gestational diabetes mellitus (GDM) in third trimester [facility] Diagnosis Viral URI- Primary Acute upper respiratory infections of unspecified site documented in this encounter hyaqu Phone: evaluation note* Diagnosis Strain of rhomboid muscle, initial encounter Chest wall muscle strain, initial encounter documented in this encounter hyaqu Phone: evaluation note* Diagnosis Viral syndrome- Primary Unspecified viral infection, in conditions classified elsewhere and of unspecified site documented in this encounter hyaqu Phone: evaluation note* Diagnosis Hemorrhoids, unspecified hemorrhoid type documented in this encounter [facility] note* Diagnosis COVID-19- Primary Omphalitis in adult Unspecified local infection of skin and subcutaneous tissue documented in this encounter hyaqu Phone: evalezzdrw note* Diagnosis Encounter for general adult medical examination with abnormal findings- Primary Anxiety and depression History of opioid abuse (HCC) Morbid obesity with body mass index (BMI) of 40.0 or higher (HCC) documented in this encounter [facility] note* Diagnosis Anxiety and depression- Primary At risk for obstructive sleep apnea Chronic bilateral low back pain without sciatica Hepatitis C antibody positive in blood Body mass index 40.0-44.9, adult (HCC) Body Mass Index 40.0-44.9, adult History of opioid abuse (HCC) documented in this encounter [facility] note* Diagnosis Morbid obesity with body mass index (BMI) of 40.0 or higher ([facility]) documented in this encounter [facility] note* Diagnosis Acute pharyngitis, unspecified etiology- Primary documented in this encounter [facility] Phone: evaluation note* Diagnosis Acute bronchitis, unspecified organism- Primary documented in this encounter [facility] [employer] Phone: evaluation note* Diagnosis Masseter muscle spasm- Primary Spasm of muscle Other acute postprocedural pain documented in this encounter [facility] [employer] Phone: evaluation note* Diagnosis Dry socket- Primary Alveolitis of jaw documented in this encounter [facility] [employer] Phone: evaluation note* Diagnosis Sprain of right ankle, unspecified ligament, initial encounter- Primary documented in this encounter [facility]* Diagnosis Toothache- Primary Unspecified disorder of the teeth and supporting structures Dental decay Unspecified dental caries [facility]* Instructions* Allegra Quinn MD - 06/24/2020 Although many hcsf-uzc-thkwlkt cough cold flu sinus medications are safe in , I would contact her AUTOMOBILES SALESPERSON office in [facility] to verify what your AUTOMOBILES SALESPERSON group feels a safe in . Tylenol [...] be sent through Care Everywhere. * Sinusitis (Egyptian) [email or web address] Discharge instructions* Attachments The following attachments cannot be sent through Care Everywhere. * URI (Upper Respiratory Infection) (Egyptian) documented in this [facility] [email or web address] Phone: Hospital Discharge instructions* Attachments The following attachments cannot be sent through Care Everywhere. * Muscle Strain (Egyptian) documented in this [email or web address] Phone: Hospital Discharge instructions* Attachments The following attachments cannot be sent through Care Everywhere. * Viral Infections (Egyptian) documented in this [email or web address] Phone: Hospital Discharge instructions* Attachments The following attachments cannot be sent through Care Everywhere. * Coronavirus Disease (COVID-19): General Info (Egyptian) * Coronavirus Disease (COVID-19): Isolation (Egyptian) * Piercing: Infection (Egyptian) documented in this [facility] Phone: Hospital Discharge instructions* Instructions* Clark Moser MD - 07/22/2021 Use Tylenol or Motrin for pain. Take amoxicillin twice a day. Amoxicillin treats strep throat, ear infections, bronchitis and pneumonia. Call primary care doctor for close follow-up. * Attachments The following attachments cannot be sent through Care Everywhere. * Sore Throat (Egyptian) documented in this [facility] Phone: [facility] Discharge instructions* Attachments The following attachments cannot be sent through Care Everywhere. * Bronchitis (Egyptian) documented in this [facility] [employer] Phone: [facility] Discharge instructions* Attachments The following attachments cannot be sent through Care Everywhere. * Cramp: Muscle (Egyptian) * Pain Post-Surgery: Acute (Egyptian) documented in this [facility] [employer] Phone: Hospital Discharge instructions* Attachments The following attachments cannot be sent through Care Everywhere. * [place] Tooth Extraction: Post-op (Egyptian) [facility]: Hospital Discharge instructions No data available for this section [facility]* Attachments The following attachments cannot be sent through Care Everywhere. * Ankle Sprain (Egyptian) documented in this [facility] note No data available for this section [facility] for referral (narrative)* Consultation (Routine) Status Reason Specialty Diagnoses / Procedures Referred By Contact Referred To Contact Authorized Nutrition Diagnoses Diet controlled gestational diabetes mellitus (GDM) in second trimester Lelo Gallegos MD [address] [place] [address] Nutrition Services [address] [place] [address] [facility] for visit Narrative* Consultation (Routine) - Pending Review Specialty Diagnoses / Procedures Referred By Contac t Referred To Contact Gastroenterology Diagnoses Hemorrhoids, unspecified hemorrhoid type Germania Galaviz, POLARITY TESTER [address] [place] [address] Holland Ann MD [address] [place] [address] Referral ID Status Reason Start Date Expiration Date V isits Requested Visits Authorized [id number] Pending Review 12/29/2020 01/14/2022 1 1 [facility] Assessments Diagnosis Accidental overdose of heroin, [...] FoundDocuments on File Type Date Recorded Patient Log Data Technician Expl anation Advance Directives and Living Will Power of Wiping Cloth Cutter Documents on File Type Date Recorded Patient Log Data Technician Expl anation Advance Directives and Living Will 06/14/2019 7:25 AM does not have 3/13/2 0 Latest Code Status on File Code Status Date Activated Date Inactivated Comments Full Code 06/15/2019 9:29 AM 06/17/2019 4:38 PM Full Code - Unverified 06/14/2019 8:35 AM 06/15/2019 9:29 AM Documents on File Type Date Recorded Patient Log Data Technician Expl anation Advance Directives and Living Will 06/14/2019 7:25 AM does not have 3/13/2 0 Latest Code Status on File Code Status Date Activated Date Inactivated Comments Full Code 06/15/2019 9:29 AM 06/17/2019 4:38 PM Full Code - Unverified 06/14/2019 8:35 AM 06/15/2019 9:29 AM Documents on File Type Date Recorded Patient Log Data Technician Expl anation Advance Directives and Living Will 06/20/2019 1:10 PM does not have 3/13/2 0 Documents on File Type Date Recorded Patient Log Data Technician Expl anation ACP-Advance Directive ACP-Power of Wiping Cloth Cutter Documents on File Type Date Recorded Patient Log Data Technician Expl anation Advance Directives and Living Will 06/20/2019 1:10 PM does not have 3/13/2 0 Documents on File Type Date Recorded Patient Log Data Technician Expl anation Advance Directives and Living Will 08/28/2020 5:58 AM does not have 3/13/2 0 Latest Code Status on File Code Status Date Activated Date Inactivated Comments Full Code 08/28/2020 11:15 AM 08/30/2020 11:53 AM Full Code 08/28/2020 5:31 AM 08/28/2020 11:07 AM Full Code 06/15/2019 9:29 AM 06/17/2019 4:38 PM Documents on File Type Date Recorded Patient Log Data Technician Expl anation Advance Directives and Living Will 08/28/2020 5:58 AM does not have 3/13/2 0 Latest Code Status on File Code Status Date Activated Date Inactivated Comments Full Code 08/28/2020 11:15 AM 08/30/2020 11:53 AM Full Code 08/28/2020 5:31 AM 08/28/2020 11:07 AM Full Code 06/15/2019 9:29 AM 06/17/2019 4:38 PM Documents on File Type Date Recorded Patient Log Data Technician Expl anation Advance Directives and Livin g Will 05/15/2021 12:00 AM Hospital Course * Savita Stiles PA-C - 06/17/2019 10:12 AM EDT [facility] Tia Levin Account: [id number] Admitted: 06/14/2019 Discharge Date/Time: 06/17/19 / 10:12 [...] amphetamine and heroine use who presented to [facility] 06/14/19 with complaints of abdominal pain and nausea. [facility] AST 1116 ALT 665 Alk phos 255 T bili 6.5 Lipase 8. CTAP revealed pericholecystic fluid vs GB wall thickening, no gallstones or hepatic pathology noted. Patient transferred to [facility] 06/14/2019 for further treatment and evaluation. GI followedwith recommendations as discussed. Patient was stable for discharge home on 06/17/19. 1. Acute Liver Injury: [facility] AST 1116 ALT 665 Alk phos [...] chart for all vitals, diagnostic data, and credit consultant notes. I discussed patient's case with Dr. Gregorio, Dr. Hay (GI) and RN. Discharge Medications Medication List ASK your doctor about these medications naltrexone microspheres Commonly known as: VivitroL Inject 380 (three hundred eighty) mg into the shoulder, thigh, or buttocks every 30 (thirty) days . Physician(s) Family: Physician No, Phone: None, Address: [facility] Follow Up: Javier Hay MD [address] [facility] [address] Follow up Repeat weekly CBC, CMP and PT/INR for the next 3-4 weeks then follow up out patient with Dr. Hay. Laboratory Follow Up by [facility]: Weekly labs for CBC, CMP, PT/INR Additional Information: Patient seen and examined day of discharge. For more information regarding patient's care, including complete radiology reports, please contact [facility] at Patient instructions, including activity, [...] amphetamine and heroine use who presented to [facility] 06/14/19 with complaints of abdominal pain and nausea. [facility] AST 1116 ALT 665 Alk phos 255 T bili 6.5 Lipase 8. CTAP revealed pericholecystic fluid vs GB wall thickening, no gallstones or hepatic pathology noted. Patient transferred to [facility] 06/14/2019 for further treatment and evaluation. LFTs [...] * Discharge Instr - Care Coordination* Consuelo Jaquez, NANO - 06/14/2019 1:16 PM EDT RESOURCES FOR PRIMARY CARE [facility] Primary Care Closed Opens tomorrow [address], [place] [address] [facility] [place] [address] [place] [address] DIRECTIONS WEBSITE [facility] Walk-In Care Closed Opens tomorrow 11 AM [address], [place] [address] documented in this encounter* Instructions* Adia Dillon [...] Opioid Use Disorder: Medication-Assisted Treatment: General Info (Egyptian) documented in this encounter* Attachments The following attachments cannot be sent through Care Everywhere. * Bacterial Vaginosis (Egyptian) * Trichomoniasis (Egyptian) documented in this encounter* Attachments The following attachments cannot be sent through Care Everywhere. * Dental Surgery: Generic: Post-op (Egyptian) documented in this encounter* Attachments The following attachments cannot be sent through Care Everywhere. * Bronchitis (Egyptian) * Pneumonia (Egyptian) documented in this encounter* Attachments The following attachments cannot be sent through Care Everywhere. * Poison Arabella - [place] - and [place] ([place]ian) documented in this encounter History of Present Illness * Javier Hay MD - 06/17/2019 9:59 AM EDT GASTROENTEROLOGY DAILY PROGRESS NOTE 1 Patient Name: Tia Levin MR #: [id number] Assessment/Plan: Elevated LFTs Assessment & Plan 29yo [...] Auguste MD - 06/17/2019 7:41 AM EDT [facility] 06/17/2019 Tia Levin 1990 [id number] Assessment/Plan: Tia Levin is a 29 y.o. female with a history of amphetamine and heroine use who presented to [facility] 06/14/19 with complaints of abdominal pain and nausea. [facility] AST 1116 ALT 665 Alk phos 255 T bili 6.5 Lipase 8. CTAP revealed pericholecystic fluid vs GB wall thickening, no gallstones or hepatic pathology noted. Patient transferred to [facility] 06/14/2019 for further treatment and evaluation. 1. [...] Disposition: home Estimated discharge date: TBD Subjective: I have reviewed recent labs, diagnostics, vitals including pulse ox, and credit consultant/other provider recommendations. No acute issues overnight [...] 2 Patient Name: Tia Levin MR #: [id number] Assessment/Plan: Elevated LFTs Assessment & Plan 29yo [...] Inpatient Progress Note 06/16/2019 Tia Levin 1990 [id number] Assessment/Plan: Tia Levin is a 29 y.o. female with a history of amphetamine and heroine use who presented to [facility] 06/14/19 with complaints of abdominal pain and nausea. [facility] AST 1116 ALT 665 Alk phos 255 T bili 6.5 Lipase 8. CTAP revealed pericholecystic fluid vs GB wall thickening, no gallstones or hepatic pathology noted. Patient transferred to [facility] 06/14/2019 for further treatment and evaluation. 1. [...] recent labs, diagnostics, vitals including pulseox, and credit consultant/other provider recommendations. No acute issues overnight [...] Units 06/14/19 1037 INR 1.3* * Aisha Hare CNP - 06/15/2019 12:17 PM EDT GASTROENTEROLOGY DAILY PROGRESS NOTE 2 Patient Name: Tia Levin MR #: [id number] Assessment/Plan: Elevated LFTs Assessment & Plan 29yo F with PMHx IVDU and hepatitis C who presents from [facility] with elevated LFTs and imaging c/f [...] Radiology, Medications and Transcriptions Aisha Hare CNP [facility] (for staff use only) * Indra Pruitt MD - 06/15/2019 10:43 AM EDT [facility] Inpatient Progress Note 06/15/2019 Tia Levin 1990 [id number] Assessment/Plan: Tia Levin is a 29 y.o. female with a history of amphetamine and heroine use who presented to [facility] 06/14/19 with complaints of abdominal pain and nausea. [facility] AST 1116 ALT 665 Alk phos 255 T bili 6.5 Lipase 8. CTAP revealed pericholecystic fluid vs GB wall thickening, no gallstones or hepatic pathology noted. Patient transferred to [facility] 06/14/2019 for further treatment and evaluation. 1. Acute Liver Injury: [facility] AST 1116 ALT 665 Alk phos [...] Results from last 7 days Lab Units 06/15/1945606/14/19 1037 WBC K/mcL 5.74 7.28 HGB g/dL [...] not have a PCP and refused a piano case maker consult for assistance. Verified insurance and Rx. [...] 10:48 AM EDT Patient on [facility] EPIC InBasket for follow-up. After provider review, I called and spoke with patient and changed her appointment to a phone visit, same date/time. In addition, as per provider request, I spoke with patient about going to any [facility] to have her lab taken so it will be available for review on 06/20/19 when she is called for her TCC appointment. Patient agreed with this plan. documented in this encounter* Anastasiia Garza CNP - 06/20/2019 1:16 PM EDT Attempted to call the patient for her tele-health visit today though she did not answer. Called [employer] number 5 times and home phone once, [...] food assistance and plans to enroll in SNAP and WIC. Pt has a history of drug addiction [...] daily (lemon water) Occasional iced coffee at [employer]. Was drinking a lot of Mountain Dew and Energy drinks prior to but stopped. Meals Away From Home - most days, fast food Past Medical History: Past Medical History: Diagnosis Date Anxiety Depression Infectious viral hepatitis hep c PTSD (Post-Traumatic Stress Disorder) History From: History obtained from patient and chart review. Current/Pertinent Medications: prescription for Current Outpatient Medications Ordered in [employer] Medication Sig Dispense Refill amoxicillin (AMOXIL) 250 [...] mass index (BMI) of 40.0 or higher ([facility]) Farhat Vang MD [address] [place] [address] Referral ID Status Reason Start Date Expiration Date Visits Requested Visits Authorized [id number] Authorized Specialty Services Required/Pat ient's Best Interest 04/16/2021 04/16/2022 1 1 Specialty Diagnoses / Procedures Referred By Contac t Referred To Contact Neurosurgery Diagnoses Chronic bilateral low back pain without sciatica Farhat Vang MD [address] [address] Carina Kline MD [facility] [place] [address] Referral ID Status Reason Start Date Expiration Date Visits Requested Visits Authorized [id number] Authorized Specialty Services Required/Pat ient's Best Interest 05/14/2021 05/14/2022 1 1 Specialty Diagnoses / Procedures Referred By Contac t Referred To Contact Rehabilitation Diagnoses Chronic bilateral low back pain without sciatica Farhat Vang MD [address] [address] Referral ID Status Reason Start Date Expiration Date Visits Requested Visits Authorized [id number] Authorized Specialty Services Required/Pat ient's Best Interest 05/14/2021 05/14/2022 1 1 Specialty Diagnoses / Procedures Referred By Contac t Referred To Contact Diagnoses At risk for obstructive sleep apnea Farhat Vang MD [address] [facility] [address] [place] [address] Gabriel Jacinto MD [address] [place] [address] Referral ID Status Reason Start Date Expiration Date Visits Requested Visits Authorized [id number] Authorized Specialty Services Required/Pat ient's Best Interest [...] in second trimester Lelo Gallegos MD [address] [place] [address] Nutrition Services [address] [place] [address] Reason Comments Gestational Diabetes Status Reason Specialty Diagnoses / Procedures Referred By Contact Referred To Contact Closed Endocrinology Diagnoses Diet controlled gestational diabetes mellitus (GDM) in second trimester Roslyn Stevenson MD [address] [place] [address] Lelo Gallegos MD [address] [place] [address] Reason Comments Pharyngitis sore throat and head [...] mass index (BMI) of 40.0 or higher ([facility]) Farhat Vang MD [address] [facility] [address] [place] [address] Nutrition Services [address] [place] [phone] Referral ID Status Reason Start Date Expiration Date Visits Requested Visits Authorized [id number] Authorized Specialty Services Required/Pat ient's Best Interest [...] and Physical Note 06/14/19 Tia Levin 1990 [id number] Assessment/Plan: Tia Levin is a 29 y.o. female with a history of amphetamine and heroine use who presented to [facility] 06/14/19 with complaints of abdominal pain and nausea. [facility] AST 1116 ALT 665 Alk phos 255 T bili 6.5 Lipase 8. CTAP revealed pericholecystic fluid vs GB wall thickening, no gallstones or hepatic pathology noted. Patient transferred to [facility] 06/14/2019 for further treatment and evaluation. 1. Elevated LFTs: [facility] AST 1116 ALT 665 Alk phos 255 T bili 6.5 (normal 02/2019). [facility] CTAP as noted above. RUQ U/S [...] amphetamine and heroine use who presented to [facility] 06/14/19 with complaints of abdominal pain and nausea. [facility] AST 1116 ALT 665 Alk phos 255 T bili 6.5 Lipase 8. CTAP revealed pericholecystic fluid vs GB wall thickening, no gallstones or hepatic pathology noted. Patient transferred to [facility] 06/14/2019 for further treatment and evaluation. Patient [...] labs, diagnostics, vitals including pulse ox, and credit consultant/other provider recommendations. Discussed with collaborating physician [...] file Gets together: Not on file Attends congregation service: Not on file Active member of [...] reviewed, including documentation from previous hospitalizations and credit consultant recommendations as summarized below. Briefly, patient [...] Name: Tia Levin Admit Date: MR #: [id number] : 1990 Senior addendum 29 y/o F [...] Hepatitis C, and hx of presents to [facility] with jaundice and abdominal pain. 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 I discussed the case with the resident/ADVISORY SERVICES ASSOCIATE and agree with the findings and plan as documented in his/her note and/or any note I supplied. Associated Order(s): IP CONSULT TO GASTROENTEROLOGY GASTROENTEROLOGY CONSULT NOTE 4 Patient Name: Tia Levin Admit Date: MR #: [id number] : 1990 Physicians: Physician Judy (Family); Brie Moreno MD (Referring) Consult Ordered By: Franny Sims PA-C Assessment and Plan: Other Elevated LFTs Assessment & Plan 29yo F with PMHx IVDU and hepatitis C who presents from [facility] with elevated LFTs and imaging c/f [...] IVDU and hepatitis C who presents from [facility] with elevated LFTs and imaging c/f [...] normal in 02/2019). CTa/p w IVC at [facility] demonstrated moderate GBW thickening w pericholecystic fluid [...] file Gets together: Not on file Attends congregation service: Not on file Active member of [...] Invalid input(s): CO2, LABALBU Aisha Hare CNP [facility] (for staff use only) Associated [...] reviewed, including documentation from previous hospitalizations and credit consultant recommendations as summarized below. Briefly, patient [...] IVDU and hepatitis C who presents from [facility] with elevated LFTs and imaging c/f [...] Adia Dillon CNP - 08/13/2019 7:43 PM EDTAdia Elena RN - 08/13/2019 7:43 PM Jimena Barnes RN - 08/13/2019 7:38 PM EDT ED Notes (unrecognized secti on and content) ED PROVIDER NOTE [facility] EMERGENCY DEPARTMENT NAME: Tia Levin AGE: 29 y.o. : 1990 VISIT DATE: 08/13/2019 CSN: [id number] PCP: Physician No Chief Complaint Patient presents with Drug Overdose This is a 29-year-old female brought to the ER via EMS for evaluation. Time my exam patient is alert and oriented. She states she was in the [employer] ([employer]) parking lot bent over in her car [...] file Gets together: Not on file Attends congregation service: Not on file Active member of [...] nursing note reviewed. Exam conducted with a hydraulic boom operator present (Nurses at the bedside). Constitutional: General: [...] for helping people with drug addiction. [address] [facility] [address] Contact information for after-discharge care Follow-up information has not been specified. Adia Dillon CNP 08/13/191948 Pt brought in by [facility], states she was found by [facility] unresponsive [...] section and content) DATE CREATED AUTHOR 08/21/2019 [facility]ital DATE CREATED AUTHOR AUTHOR'S ORGANIZ ATION 02/15/[address] [facility] DATE CREATED AUTHOR AUTHOR'S ORGANIZ ATION 05/18/2021 [facility] DATE CREATED AUTHOR AUTHOR'S ORGANIZ ATION 07/02/2021 [facility] DATE CREATED AUTHOR AUTHOR'S ORGANIZ ATION 07/09/2021 [facility] DATE CREATED AUTHOR AUTHOR'S ORGANIZ ATION 07/05/2022 [facility] DATE CREATED AUTHOR AUTHOR'S ORGANIZ ATION 05/10/2023 [facility] DATE CREATED AUTHOR AUTHOR'S ORGANIZ ATION 05/14/2023 [facility] DATE CREATED AUTHOR AUTHOR'S ORGANIZ ATION 07/20/2023 [facility] DATE CREATED AUTHOR AUTHOR'S ORGANIZ ATION 07/29/2023 [facility] Ordered Prescriptions (unrec ognized section and [...] ONCE, 1 dose, On Tue05/19/22 at 2015 2013 (Given - Provid er: Juliana Stewart [...] Care Teams (unrecognized sec tion and content) Trailer Steerer Relationship Specialty Start Date End Date No, Physician [facility] PCP - General 12/29/20 Germania Galaviz, MARK [address] [place] [id number] Nurse Practitioner Obstetrics/Gynecology 11/01/19 Trailer Steerer Relationship Specialty Start Date End Date No, Physician [facility] PCP - General 12/29/20 Germania Galaviz, MARK [address] [place] [address] Nurse Practitioner Obstetrics/Gynecology 11/01/19 Trailer Steerer Relationship Specialty Start Date End Date Farhat Vang MD [address] [facility] [address] [place] [address] PCP - General Family Medicine 04/16/21 Germania Galaviz, POLARITY TESTER [address] [place] [address] Nurse Practitioner Obstetrics/Gynecology 11/01/19 Radha Pantoja MD [address] [place] [address] Information Services Manager Obstetrics/Gynecology 02/02/21 Yvonne Santos MD [address] [place] [address] Information Services Manager Obstetrics/Gynecology 02/02/21 Regla Dias, [facility] [address] [place] [address] Television Presenter Obstetrics/Gynecology 02/02/21 Trailer Steerer Relationship Specialty Start Date End Date Farhat Vang MD [address] [address] PCP - General Family Medicine 04/16/21 Germania Galaviz, POLARITY TESTER [address] [place] [address] Nurse Practitioner Obstetrics/Gynecology 11/01/19 Radha Pantoja MD [address] [place] [address] Information Services Manager Obstetrics/Gynecology 02/02/21 Yvonne Santos MD [address] [facility] [place] [address] Information Services Manager Obstetrics/Gynecology 02/02/21 Larissa Reglasoren Arriaga, [facility] [address] [facility] [place] [address] Television Presenter Obstetrics/Gynecology 02/02/21 Trailer Steerer Relationship Specialty Start Date End Date Farhat Vang MD [address] [facility] [address] [place] [address] PCP - General Family Medicine 04/16/21 Germania Galaviz, POLARITY TESTER [address] [place] [address] Nurse Practitioner Obstetrics/Gynecology 11/01/19 Radha Pantoja MD [address] [facility] [place] [address] Information Services Manager Obstetrics/Gynecology 02/02/21 Yvonne Santos MD [address] [facility] [address] [place] [address] Information Services Manager Obstetrics/Gynecology 02/02/21 Regla Dias, CN [address] [facility] [address] [place] [address] Television Presenter Obstetrics/Gynecology 02/02/21 Trailer Steerer Relationship Specialty Start Date End Date Linda Sheppard DO [address] [place] [address] PCP - General Family Medicine 09/04/22 Trailer Steerer Relationship Specialty Start Date End Date Linda Sheppard DO [address] [facility] [place] [address] PCP - General Family Medicine [...] BE BASED ON THE PRIMARY CLINICAL RECORDS. [employer] [facility]. provides no warranty or guarantee of the accuracy or completeness of information in this document.
[2023-08-04 09:32] LABS: Glucose Fasting 78 mg/dL (<95)
[2023-08-04 09:49] LABS: Glucose 1 Hour 178 mg/dL (<180)
[2023-08-04 10:16] LABS: Glucose 2 Hour 181 mg/dL (<155)
[2023-08-04 10:50] LABS: Glucose 3 Hour 126 mg/dL (<140)
== END 2023-08-04 07:15 | disposition home or self-care (01) ==
LOC: LAB 07:14
PROVIDERS: Visit Provider Obstetrics & Gynecology
DX: R73.09 Other abnormal glucose (principal)
CPT/HCPCS: 36415; 82951; 82952

== ENCOUNTER 2023-08-05 17:37 | Emergency (ER) | payer BC, SELFPAY ==
[2023-08-05 17:47] VITALS: BP 117/71; PULSE 96; TEMP 36.7; O2SAT 97; BMI 42.0
--- NOTE | 2023-08-05 18:35 | ED.ABDPAIN1 ---
HPI - Abdominal Pain General Chief Complaint: Abdominal Pain Stated Complaint: 18 wks preg/twins,daughter fell on belly/feel ill Time Seen by Provider: 08/05/23 18:21 Source: patient Mode of arrival: Wheelchair Limitations: no limitations History of Present Illness HPI narrative: This patient is here for evaluation of abdominal pain. She was lying on her couch on her right side at home just before arrival to the ER here. One of her daughters was giving her hog and her feet gave out and sore daughter from a standing position felt onto this patient's left side. This patient is currently 18 weeks. She has twins. 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 Dumont on alternative weeks. Next week she [facility] a routine basis. She does take aspirin on a routine basis. She has been using Zofran during this on a routine basis but she did not take any today. After this event occurred today she became extremely frantic and anxious and became nauseated. She has not had any bleeding. Does not have any chest pain. She is here for evaluation of this event. She gets routine ultrasounds at her credit analyst office when she goes and visits. She has not had any blood in her urine or urinary symptomatology or use of antibiotics recently. She said that she had gestational diabetes with her first and just this week she says she failed her diabetes test but they have not started her on any medications because she was diet controlled the last time. Related Data Home Medications ?Medication ?Instructions ?Recorded ?Confirmed aspirin 81 mg chewable tablet 81 mg PO DAILY 08/05/23 08/05/23 (Aspirin Childrens) ondansetron 4 mg disintegrating 4 mg PO DAILY PRN nausea and 08/05/23 08/05/23 tablet vomiting Allergies Allergy/AdvReac Type Severity Reaction Status Date / Time No Known Drug Allergies Allergy Verified 08/05/23 17:51 Exam Narrative Exam Narrative: Awake alert anxious vital signs are noted heart rate is 96. She is afebrile blood pressure is excellent. Her legs do not show any evidence of any edema cellulitis or phlebitis. She does not have any hyperreflexia. Moving to her abdomen she has a large gal I do not detect any obvious peritoneal findings guarding or rebound. Palpation of her ribs discloses no rib injury or tenderness. Heart sounds are normal she has no respiratory distress. Constitutional Vital Signs, click to edit/add: Last Vital Signs Temp 98.1 F 08/05/23 17:47 Pulse 96 H 08/05/23 17:47 Resp 18 08/05/23 17:47 BP 117/71 08/05/23 17:47 Pulse Ox 97 08/05/23 17:47 O2 Del Method Room Air 08/05/23 17:47 Course Vital Signs Vital signs: Vital Signs Temperature 98.1 F 08/05/23 17:47 Pulse Rate 96 H 08/05/23 17:47 Respiratory Rate 18 08/05/23 17:47 Blood Pressure 117/71 08/05/23 17:47 Pulse Oximetry 97 08/05/23 17:47 Oxygen Delivery Method Room Air 08/05/23 17:47 Temperature 98.1 F 08/05/23 17:47 Pulse Rate 96 H 08/05/23 17:47 Respiratory Rate 18 08/05/23 17:47 Blood Pressure 117/71 08/05/23 17:47 Pulse Oximetry 97 08/05/23 17:47 Oxygen Delivery Method Room Air 08/05/23 17:47 MDM - Abdominal Pain MDM Narrative Medical decision making narrative: Patient by history 18 weeks with twins seeing high risk neonatology next week in [place]. A relatively benign event with her daughter who weighs approximately 130 pounds leaned over lost her balance and then laid on top of her. We will get heart tones, check urinalysis and do bedside glucose. Discharge Plan Discharge Chief Complaint: Abdominal Pain Clinical Impression: Twin gestation in second trimester Patient Disposition: Still a Patient Prescriptions / Home Meds: No Action ondansetron 4 mg tablet,disintegrating 4 mg PO DAILY PRN (Reason: nausea and vomiting) aspirin [Aspirin Childrens] 81 mg tablet,chewable 81 mg PO DAILY Print Language: Maldivian Referrals: KEDAR SHEPPARD [Primary Care Provider] - 1 week
[2023-08-05 18:51] LABS: Bilirubin Urine NEGATIVE (NEGATIVE); Blood Urine NEGATIVE (NEGATIVE); Clarity Urine CLEAR (CLEAR); Color Urine LT. YELLOW (YELLOW); Glucose Urine UA NEGATIVE (NEGATIVE); Ketones Urine NEGATIVE (NEGATIVE); Leukocyte Esterase Urine NEGATIVE (NEGATIVE); Nitrite Urine NEGATIVE (NEGATIVE); Protein Urine NEGATIVE (NEG/TRACE); pH Urine 7.5 (5.0-9.0)
[2023-08-05 18:54] LABS: Glucometer 72 mg/dL (74-106)
[2023-08-05 18:54] LABS: Urine Microscopic Indicated NO
[2023-08-05] MEDS: ONDANSETRON 4 MG RAPDIS TABLET SL (19:05)
--- NOTE | 2023-08-05 19:49 | US_ITS ---
The [address] [address] Patient Name: TIA MONROE MRN: [id number] date: 1990 Sex: F Assigned Patient Location: ER Current Patient Location: ER Accession/Order Number: [id number] Exam Date: 08/05/2023 19:55 Report Date: 08/05/2023 21:35 At the request of: CARLO DAVIS Procedure: US OB placenta HISTORY: Abdominal injury. COMPARISON: OB ultrasound 05/20/2023. TECHNIQUE: Obstetrical US, greater than 14 weeks. FINDINGS: NUMBER OF FETUSES: Twin PRESENTATION: Fetus A is cephalic in presentation. Fetus B is breech in presentation. PLACENTA: Posterior. AMNIOTIC FLUID: Subjectively within normal limits. CARDIAC RATE OF FETUS: Fetus A is 143 bpm. Fetus B is 138 bpm. Focused sonogram of the placenta appears within normal limits without evidence for abruption. US/US OB placenta IMPRESSION: Living twin gestation as above. Targeted ultrasound of the placenta is within normal limits. No evidence for abruption. Electronically authenticated by: ARIELLE LAMAR Date: 08/05/2023 21:35
[2023-08-05 20:31] VITALS: BP 116/84; PULSE 97; O2SAT 97
--- NOTE | 2023-08-05 20:44 | US_ITS ---
The [address] [address] Patient Name: TIA MONROE MRN: [id number] date: 1990 Sex: F Assigned Patient Location: ER Current Patient Location: ER Accession/Order Number: [id number] Exam Date: 08/05/2023 19:55 Report Date: 08/05/2023 21:35 At the request of: CARLO DAVIS Procedure: US OB >= 14 wk fetus add gest HISTORY: Abdominal injury. COMPARISON: OB ultrasound 05/20/2023. TECHNIQUE: Obstetrical US, greater than 14 weeks. FINDINGS: NUMBER OF FETUSES: Twin PRESENTATION: Fetus A is cephalic in presentation. Fetus B is breech in presentation. PLACENTA: Posterior. AMNIOTIC FLUID: Subjectively within normal limits. CARDIAC RATE OF FETUS: Fetus A is 143 bpm. Fetus B is 138 bpm. Focused sonogram of the placenta appears within normal limits without evidence for abruption. US/US OB >= 14 wk fetus add gest IMPRESSION: Living twin gestation as above. Targeted ultrasound of the placenta is within normal limits. No evidence for abruption. Electronically authenticated by: ARIELLE LAMAR Date: 08/05/2023 21:35
--- NOTE | 2023-08-05 21:44 | ED_ITS ---
HPI - Abdominal Pain General Chief Complaint: Abdominal Pain Stated Complaint: 18 wks preg/twins,daughter fell on belly/feel ill Time Seen by Provider: 08/05/23 18:21 Source: patient Mode of arrival: Wheelchair Limitations: no limitations History of Present Illness HPI narrative: 33-year-old female was initially seen by Dr. Mejias after discussing the case with him thoroughly. Please see his full history and physical exam Related Data Home Medications ?Medication ?Instructions ?Recorded ?Confirmed aspirin 81 mg chewable tablet 81 mg PO DAILY 08/05/23 08/05/23 (Aspirin Childrens) ondansetron 4 mg disintegrating 4 mg PO DAILY PRN nausea and 08/05/23 08/05/23 tablet vomiting Allergies Allergy/AdvReac Type Severity Reaction Status Date / Time No Known Drug Allergies Allergy Verified 08/05/23 17:51 Exam Constitutional Vital Signs, click to edit/add: Last Vital Signs Temp 98.1 F 08/05/23 17:47 Pulse 97 H 08/05/23 20:31 Resp 18 08/05/23 20:31 BP 116/84 08/05/23 20:31 Pulse Ox 97 08/05/23 20:31 O2 Del Method Room Air 08/05/23 17:47 Course Vital Signs Vital signs: Vital Signs Temperature 98.1 F 08/05/23 17:47 Pulse Rate 96 H 08/05/23 17:47 Respiratory Rate 18 08/05/23 17:47 Blood Pressure 117/71 08/05/23 17:47 Pulse Oximetry 97 08/05/23 17:47 Oxygen Delivery Method Room Air 08/05/23 17:47 Temperature 98.1 F 08/05/23 17:47 Pulse Rate 97 H 08/05/23 20:31 Respiratory Rate 18 08/05/23 20:31 Blood Pressure 116/84 08/05/23 20:31 Pulse Oximetry 97 08/05/23 20:31 Oxygen Delivery Method Room Air 08/05/23 17:47 MDM - Abdominal Pain MDM Narrative Medical decision making narrative: Ultrasounds are negative per radiologist and she is able to be discharged home. Treatment diagnosis and follow-up were discussed thoroughly. Differential Diagnosis Differential diagnosis: Likely abdominal pain and other (Placental abruption) Lab Data Attestation: I reviewed the patient's lab results. Labs: Lab Results 08/05/23 08/05/23 Range/Units 18:39 18:53 Urine Color Lt. yellow (YELLOW) Urine Clarity Clear (CLEAR) Urine pH 7.5 (5.0-9.0) Ur Specific Aurora 1.020 (1.005-1.025) Urine Protein Negative (NEG/TRACE) mg/dL Urine Glucose (UA) Negative (NEGATIVE) mg/dL Urine Ketones Negative (NEGATIVE) mg/dL Urine Occult Blood Negative (NEGATIVE) Urine Nitrite Negative (NEGATIVE) Urine Bilirubin Negative (NEGATIVE) Urine Urobilinogen 1.0 (0.2-1.0) EU/dL Ur Leukocyte Esterase Negative (NEGATIVE) POC Glucose 72 L (74-106) mg/dL Imaging Data Ultrasound: Radiologist's impression: ITS Impressions Obstetrics Ultrasound 08/05/23 19:49 IMPRESSION: Living twin gestation as above. Targeted ultrasound of the placenta is within normal limits. No evidence for abruption. Electronically authenticated by: ARIELLE LAMAR Date: 08/05/2023 21:35 Ultrasound 08/05/23 20:44 IMPRESSION: Living twin gestation as above. Targeted ultrasound of the placenta is within normal limits. No evidence for abruption. Electronically authenticated by: ARIELLE LAMAR Date: 08/05/2023 21:35 Discharge Plan Discharge Stand Alone Forms: Portal Instructions Chief Complaint: Abdominal Pain Clinical Impression: Twin gestation in second trimester Patient Disposition: Home, Self-Care Time of Disposition Decision: 21:43 Condition: Good Mode of Transportation: Private Vehicle Prescriptions / Home Meds: No Action ondansetron 4 mg tablet,disintegrating 4 mg PO DAILY PRN (Reason: nausea and vomiting) aspirin [Aspirin Childrens] 81 mg tablet,chewable 81 mg PO DAILY Print Language: Malaysian Instructions: Abdominal Pain in (ED) Referrals: KEDAR SHEPPARD [Primary Care Provider] - 1 week
== END 2023-08-05 21:50 | disposition home or self-care (01) ==
PROVIDERS: Emergency Medicine Emergency Medical Services; Emergency Provider Emergency Medicine
DX: O30.002 Twin pregnancy, unspecified number of placenta and unspecified number of amniotic sacs, second trimester (principal); Z3A.18 18 weeks gestation of pregnancy; Z79.82 Long term (current) use of aspirin; Z79.899 Other long term (current) drug therapy
CPT/HCPCS: 36415; 76810; 76815; 81003; 99284

== ENCOUNTER 2023-09-14 09:00 | Outpatient (OUT) | payer BC, SELFPAY ==
--- NOTE | 2023-09-14 09:08 | CA_ITS ---
Patient Name: TIA MONROE MR#: [id number] : 1990 Exam Date: 09/14/2023 Ordering Doctor: DR Mark Dumont . ECHOCARDIOGRAM REPORT PROCEDURE: CA ECHO DOPPLER COMPLETE INDICATIONS: SOB, Rapid heartbeat COMPARISON: None. DESCRIPTION: COMPLETE ECHOCARDIOGRAM Real-time transthoracic echocardiography with 2D, M-mode, spectral and color flow Doppler performed. QUALITY: Technical quality was good. LEFT VENTRICLE: Normal chamber size. Normal left ventricular wall thickness. Global left ventricular systolic function is normal. LV EF: Estimated left ventricular ejection fraction is 65%. DIASTOLIC: Normal diastolic function. ATRIAL SEPTUM: LEFT ATRIUM: Normal chamber size. RIGHT ATRIUM: Normal chamber size. RIGHT VENTRICLE: Normal chamber size. Normal right ventricular systolic function. TRICUSPID VALVE: Normal mobility and thickness. No stenosis with trivial regurgitation. Unable to assess right-sided pressures due to lack of measurable tricuspid regurgitation. MITRAL VALVE: Normal mobility and thickness. No evidence of mitral valve stenosis. No mitral regurgitation. AORTIC VALVE: Normal trileaflet appearance. No visible sclerosis. Normal leaflet mobility. No evidence of aortic valve stenosis. No aortic regurgitation. AORTIC ROOT: Normal diameter and appearance. PULMONIC VALVE: Normal thickness and mobility. No stenosis. Trivial regurgitation. PERICARDIUM: No evidence of pericardial effusion. IVC: Collapses with inspirations. Normal size. PLEURA: CONCLUSION: 1. Normal ventricular size and function. LVEF is 65%. 2. No significant valvular dysfunction. 3. Unable to assess right-sided pressures due to lack of measurable tricuspid regurgitation. 4. No pericardial effusion. Adult Echocardiography Procedure Report Left Ventricle LVEDD (3.7 - 5.6 cm): 4.47 cm LVESD (2.2 - 4.0 cm): 2.98 cm LVIVS thickness (0.6 - 1.2 cm): 0.88 cm LVPW thickness (0.5 - 1.0 cm): 0.76 cm e': 0.16 m/s E - e': 4.44 LVOT Max Gradient: 3.76 mm[Hg], 3.76 mm[Hg], 3.76 mm[Hg] LVOT Area (cm2): 0.97 m/s Peak Velocity (LVOT): 0.97 m/s, 0.97 m/s, 0.97 m/s Mean Velocity (LVOT): 0.73 m/s LVOT Diameter 2.15 cm Left Ventricular Ejection Fraction: 65 % Left Atrium LA Volume Index (2D A2C): 19.19 ml/m2 Left Atrium Systolic Dimension: 3.48 cm Mitral Valve MV E to A Ratio: 0.86 Mitral Valve A-Wave Peak Velocity: 0.83 m/s Mitral Valve E-Wave Peak Velocity: 0.71 m/s Right Ventricle RV Internal Diastolic Dimension: 3.14 cm Aorta AO Root Diam: 2.90 cm Ascending Ao Diam: 2.66 cm Aortic Valve AoV Area (Peak Eliazar): 2.35 cm2, 2.38 cm2, 2.33 cm2 AoV Area (VTI): 2.23 cm2, 2.27 cm2, 2.27 cm2 Peak Velocity(Antegrade Flow): 1.47 m/s, 1.51 m/s Peak Gradient(Antegrade Flow): 8.69 mm[Hg], 9.07 mm[Hg] Mean Velocity(Antegrade Flow): 1.03 m/s, 1.02 m/s Mean Gradient(Antegrade Flow): 4.73 mm[Hg], 4.63 mm[Hg] Velocity Time Integral: 25.04 cm, 25.19 cm Tricuspid Valve Peak Velocity (Regurgitant Flow): 1.91 m/s Pulmonic Valve Mean Gradient: 3.69 mm[Hg], 4.36 mm[Hg] Mean Velocity: 0.91 m/s, 0.99 m/s Peak Velocity: 1.26 m/s, 1.23 m/s Peak Gradient: 5.59 mm[Hg], 7.18 mm[Hg], 6.07 mm[Hg] Right Atrium Right Atrium Systolic Pressure: 46.62 ml, 46.62 ml Dictated by: Brice Prince M.D. on 09/14/2023 at 13:57 Approved by: Brice Prince M.D. on 09/14/2023 at 14:01
--- NOTE | 2023-09-14 09:08 | ECG_ITS ---
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
== END 2023-09-14 09:01 | disposition home or self-care (01) ==
LOC: CARD 09:01
PROVIDERS: Visit Provider Obstetrics & Gynecology
DX: O26.899 Other specified pregnancy related conditions, unspecified trimester (principal); R06.02 Shortness of breath; R00.0 Tachycardia, unspecified; O30.009 Twin pregnancy, unspecified number of placenta and unspecified number of amniotic sacs, unspecified trimester; Z3A.00 Weeks of gestation of pregnancy not specified
CPT/HCPCS: 36415; 84443; 93005; 93306

== ENCOUNTER 2023-10-12 08:15 | Observation (INO) | payer BC, SELFPAY ==
--- OUTSIDE RECORDS SUMMARY | 2023-10-12 08:31 | XMS_ITS | CCD ---
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 Name Role Phone Unavailable Primary Care Provider Unavailabl e No, Physician Primary Care Provider Unavailabl e HODA MADERA Unavailable Unavailable Primary Care Provider Unavailabl e Judy, Physician Primary Care Provider Unavailabl Germania Becerra Unavailable Roslyn Stevenson Unavailable Radha Pantoja Unavailable Yvonne Santos Unavailable Larissa, Regla Corina Unavailable No, Physician Primary Care Provider UnavailGermania Rodriguez CNP Unavailable [phone] Roslyn Stevenson MD Unavailable Radha Pantoja MD Unavailable Yvonne Santos MD Unavailable Larissa CNM, Regla Corina Unavailable Unavailable Primary Care Provider Germania Funes CNP Unavailable Roslyn Stevenson MD Unavailable Radha [...] Unavai lable NO, PHYSICIAN Primary Care Unavailable VERYVONNE BARNES LSelwyn Admitting Unavailable Radha Pantoja MD Unavailable Yvonne Santos MD Unavailable [phone] Larissa KHOURY, Regla Corina Unavailable Ciera PEDRAZA, [...] NO, PHYSICIAN Primary Care Unavailable YVONNE SANTOS LSelwyn Admitting Unavailable NO, PHYSICIAN Primary Care Unavailable STEPH, YVONNE LSelwyn Admitting Unavailable NO, PHYSICIAN Primary Care Unavailable [...] PAPADOPOL, NARCIS DAWIT Primary Care Unavaila ble ZAPBRIE SALINAS Attending Unavailabl e PAPFARHAT BARFIELD Primary Care Unavaila ble Unavailable Primary Care [...] Unavailable ELIANA ., DR GRANADOS Attending Unavailable ELINAA ., DR GRANADOS Consulting Unavailable ELIANA ., DR GRANADOS Admitting Unavailable BETTYE DANIELS Consulting Unavailable Linda Sheppard DO Primary Care Provider Jonathan Martinez Attending Unavailable Zac Fields Attending Unavailable Linda Sheppard Referring Unavailable Todd Smart Attending Unavailable MD Todd Smart Admitting Unavailable MARK DUMONT Attending Unavailable MARK DUMONT Attending Unavailable ELIANA, MARK Attending Unavailable MARK DUMONT Attending Unavailable LINDA SHEPPARD Primary Care Unavailable CHET BERUMEN Attending Unavailable LINDA SHEPPARD Primary Care Unavailable CHET BERUMEN Attending Unavailable MARK DUMONT Referring Unavailable LINDA SHEPPARD Primary Care Unavailable MARK DUMONT Referring Unavailable LINDA SHEPPARD Primary Care Unavailable LINDA SHEPPARD Primary Care Unavailable NICHOLAS ROGER Attending Unavailable VIOLET JUAREZ Consulting Unavailable JOE JARAMILLO Attending Unavailable LINDA SHEPPARD Primary Care Unavailable VIOLET JUAREZ Admitting Unavailable VIOLET JUAREZ Attending Unavailable LINDA SHEPPARD Primary Care Unavailable BLAKE KAUFFMAN Referring Unavailable LINDA SHEPPARD Primary Care Unavailable Medications Current Medications Medication Drug Class(es) [...] day(s), # 14 tab(s), Refills(s) 0, Pharmacy: [facility], 160, cm, 05/11/23 21:53:00 EST, Height/Length Dosing, 110, kg, 05/11/23 21:53:00 EST, Weight Dosing Start Date: 05/11/23 Stop Date: 05/18/23 Status: Ordered Start: 09-04-2022 End: 09-04-2022 take 1 tablet by mouth twice daily amoxicillin-clavulanate (AUGMENTIN) 875-125 MG per tablet Take 1 tablet by mouth 2 times daily for 7 days 14 tablet 0 09/04/2022 09/04/2022 Discontinued (ERROR) aspirin 81 mg delayed release oral tablet (1 source) Platelet Aggregation Inhibitor, Nonsteroidal Anti-inflammatory Drug take 1 tablet by mouth once daily aspirin 81 MG EC tablet Take 1 tablet by mouth daily 0 Active bacitracin 0.5 unt/mg topical ointment (1 source) Start: 023 End: 023 bacitracin 500 UNIT/GM ointment Apply topically 2 times daily. 14 g 0 09/04/2022 09/14/2022 Active baclofen 10 mg oral tablet (3 sources) gamma-Aminobutyric Acid-ergic Agonist Start: End: take 1 tablet by mouth three times daily as needed baclofen (LIORESAL) 10 MG tablet Take 10 mg by mouth 3 (three) times a day as needed . 0 04/24/2021 Active betamethasone 1 mg/ml topical cream (1 source) Corticosteroid Start: End: betamethasone valerate (VALISONE) 0.1 % cream Apply topically 2 times daily. 15 g 0 11/03/2019 11/10/2019 Active blood-glucose meter kit (4 sources) Start: blood-glucose meter kit Use as instructed to check BG QID Dx O24.14 . 1 each 0 06/09/2020 Active brompheniramine maleate 0.4 mg/ml / dextromethorphan hydrobromide 2 mg/ml / pseudoephedrine hydrochloride 6 mg/ml oral solution (2 sources) alpha-Adrenergic Agonist, Uncompetitive W-yrcoom-I-aspartate Receptor Antagonist, Sigma-1 Agonist Start: End: take 5 mL by mouth four times daily as needed for cough brompheniramine-pse udoephedrine-DM (BROMFED DM) 2-30-10 MG/5ML syrup Take 5 mLs by mouth 4 times daily as needed for Congestion or Cough 240 mL 1 10/12/2021 11/11/2021 Active Start: 11-07-2020 End: 11-12-2020 take 5 mL by mouth three times daily as needed for cough mhcbareiimhjkfn-pzbmcsgtjuypnri-IT 2-30- 10 MG/5ML syrup Take 5 mLs [...] 0, (swish and spit; do not swallow), [facility], 160, cm, 05/11/23 21:53:00 EST, Height/Length Dosing, 110, kg, 05/11/23 21:53:00 EST, Weight Dosing Start Date: 05/11/23 Status: Ordered cholecalciferol 0.125 mg oral capsule (1 source) Vitamin D Start: 03-20-2023 vitamin D (CHOLECALCIFEROL ) 125 MCG (5000 UT) CAPS capsule Take by mouth once a week 0 03/20/2023 Active clindamycin 300 mg oral capsule (3 sources) [...] Active Dextromethorphan / guaiFENesin (2 sources) Uncompetitive A-nufcak-A-asparta te Receptor Antagonist, Sigma-1 Agonist End: 06-24-2020 [...] Non-Formulary Medication Start Date: 04/23/11 Status: Ordered omeprazole 20 mg delayed release oral capsule (1 source) Proton Pump Inhibitor Start: 09-06-2023 take 1 capsule by mouth at bedtime omeprazole (PRILOSEC) 20 MG delayed release capsule TAKE 1 CAPSULE BY MOUTH AT BEDTIME - - do not crush or chew 0 09/06/2023 Active ondansetron 4 mg disintegrating oral tablet (5 sources) Serotonin-3 Receptor Antagonist Start: 07-05-2023 apply 1 tablet topically every six hours for nausea and vomiting ondansetron (ZOFRAN-ODT) 4 MG disintegrating tablet DISSOLVE 1 tablet on top OF tongue EVERY 6 HOURS if needed FOR NAUSEA AND VOMITING 0 07/05/2023 Active Start: 06-14-2019 End: 06-14-2019 ondansetron (ZOFRAN) injecti on 4 mg Start: 06-13-2019 End: 06-13-2019 ondansetron (ZOFRAN) injecti on 4 mg Start: 02-26-2018 End: 06-13-2019 take 1 tablet by mouth every eight hours as needed ondansetron (ZOFRAN-ODT) 4 MG disintegrating tablet Take 4 mg by mouth every 8 hours as needed 0 02/26/2018 06/13/2019 Discontinued (LIST CLEANUP) ondansetron (ZOFRAN-ODT) disintegrating tablet 4 mg (2 sources) Start: 10-05-2023 ondansetron (Z OFRAN-ODT) disintegrating tablet 4 mg Start: 06-14-2019 End: 06-17-2019 take 1 tablet by mouth every six hours as needed ondansetron (ZOFRAN-ODT) disintegrating tablet 4 mg oxyCODONE hydrochloride 5 mg oral tablet (1 source) Opioid Agonist Start: 05-13-2023 End: 05-16-2023 take 1 tablet by mouth every six hours oxyCODONE 5 mg Tab 5 mg = 1 tab(s), Oral, q6hr, X 3 day(s), # 15 tab(s), Refills(s) 0, Pharmacy: [facility], 160, cm, 05/13/23 11:33:00 EST, Height/Length [...] TABLET BY MOUTH DAILY 0 04/29/2021 Active Vit-Fe Fumarate-FA ( VITAMINS PO) (4 sources) take 1 tablet by mouth once daily Vit-Fe Fumarate-FA ( VITAMINS PO) Take 1 tablet by mouth Daily 0 Active End: 11-07-2020 Vit-Fe Fumarate-FA ( VITAMINS PO) Take by mouth 0 11/07/2020 Discontinued (Therapy completed) Vit-Fe Fumarate-FA ( VITAMINS PO) Take by mouth 0 Active vitamin with Ca-Iron-FA 27-1 mg Tab [...] Class(es) Dates Sig (Normalized) Sig (Original) acetaminophen 500 mg oral tablet (13 sources) Start: 10-05-2023 1,000 mg, Oral, EVERY 6 HOURS PRN, Starting on Tue10/05/23 at 2101, Until Discontinued, Pain Mild (1-3), Pain Moderate (4-6), headache Maximum dose of acetaminophen is 4000mg from all sources in 24 hours. Alternate ibuprofen and acetaminophen every 4 hours. Start: 06-14-2019 End: 06-17-2019 take 1 tablet [...] for Pain. 0 05/10/2023 Discontinued (LIST CLEANUP) [id number] 200 actuat albuterol 0.09 mg/actuat metered dose [...] Oral, Every 4 hours PRN, indigestion, Starting [facility] 06/14/19 at 0831 azithromycin 250 mg oral [...] Oral, Daily PRN, constipation, For constipation., Starting [facility] 06/14/19 at 0831 naloxone (NARCAN) injection 0.1 mg (1 source) Start: 06-14-2019 End: 06-17-2019 naloxone (NARCAN) injection 0.1 mg 2 ml orphenadrine citrate 30 mg/ml [...] tablet 0 11/03/2019 11/20/2019 Discontinued (Therapy completed) technetium (Tc-99m) mebrofenin (CHOLETEC) injection 6 millicurie [...] [Anxiety disorder, unspecified] Onset: 06-25-2010 06-25-2010 Chronic Female infertility (2 sources) Female infertility associated [...] 12-20-2016 Resolved: 01-02-2020 01-02-2020 Episodic Menstrual disorders (20 sources) Spasmodic dysmenorrhea; 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-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 Mood disorders (20 sources) Depressive disorder; Translations: [Major depressive disorder, single episode, unspecified] Onset: 06-25-2010 06-25-2010 Chronic Nonspecific chest pain (2 sources) Chest pain, unspecified; Translations: [Chest pain, unspecified] Onset: 10-05-2023 Episodic Other complications of (2 sources) Supervision of [...] personal risk factors, not elsewhere classified] Episodic Residual codes; unclassified (3 sources) Gestation period, 26 weeks; Translations: [26 weeks gestation of ] Onset: 10-05-2023 10-05-2023 Episodic Residual codes; unclassified (1 source) 27 weeks gestation of ; Translations: [27 weeks gestation of ] Onset: 10-05-2023 Episodic Residual codes; unclassified (1 source) 26 weeks gestation of ; Translations: [26 weeks gestation of ] Onset: 10-05-2023 Episodic Skin and subcutaneous tissue infections (1 [...] [Accidental overdose of heroin, initial encounter ([facility])] Episodic Substance-related disorders (1 source) Opioid abuse, in remission; Translations: [History of opioid abuse] Onset: 03-17-2020 03-17-2020 Unclassified (1 source) worsening facial pain Onset: 05-10-2023 Urinary tract infections (1 source) Urinary tract infectious disease; Translations: [Urinary tract infection with hematuria, site unspecified] Episodic Viral infection (2 sources) Viral disease; Translations: [Viral infection, unspecified] Episodic Past or Other Problems Problem Classification Problem Date Documented Date Episodic/Chronic Administrative/socia l admission (14 sources) Admission statuses; Translations: [intermediate (current) use of opiate analgesic] Onset: 05-18-2019 [...] diet controlled] Onset: 06-24-2020 Resolved: 12-29-2020 Episodic Disorders of teeth and jaw (15 sources) Toothache; Translations: [Acute gingivitis] Onset: 05-10-2023 Episodic Inflammatory diseases of female pelvic organs (15 sources) Acute vaginitis; Translations: [Bacterial vaginosis] Onset: 12-20-2016 Resolved: 01-02-2020 12-20-2016 Episodic Mycoses (14 sources) Candidal vulvovaginitis; Translations: [Candidiasis of vulva and vagina] Onset: 12-20-2016 Resolved: 01-02-2020 12-20-2016 Episodic Nausea and vomiting (20 sources) Nausea; Translations: [Nausea] Onset: 04-08-2011 04-08-2011 Episodic Other complications of (14 sources) Uterine scar from previous surgery in , childbirth and the puerperium; Translations: [Maternal care for low transverse scar from previous delivery] Onset: 12-20-2016 12-20-2016 Episodic Other female genital disorders (14 sources) [...] Onset: 01-22-2020 Resolved: 02-02-2021 01-22-2020 Episodic Other nutritional; endocrine; and metabolic disorders [...] Test Name Value Interpretation Reference Range Facility APTTon 10-05-2023 aPTT Coag (Bld) [Time] 29.8 s Normal 23.9-33.8 [facility] Comment on above: Result Comment: IV Heparin Therapy Range: 62.0-94.0 Performed By: #### P T, PTT, BMP, CDP, TROPI #### [facility] [address] [place], [place] [phone] Owner Operator: Guero Sandoval MD Basic Metabolic Profon 10-04 Anion gap [Moles/Vol] 13 mmol/L Normal - [facility] Comment on above: Performed By: #### P T, PTT, BMP, CDP, TROPI #### [facility] [address] [place], [place] [phone] Owner Operator: Guero Sandoval MD BUN/CRE Ratio Result cannot be calculated, Creatinine below linear range. Normal - [facility] Comment on above: Performed By: #### P T, PTT, BMP, CDP, TROPI #### [facility] [address] [place] [address] Owner Operator: Guero Sandoval MD Calcium [Mass/Vol] 8.7 mg/dL Normal 8.6-10.4 [facility] Comment on above: Performed By: #### P T, PTT, BMP, CDP, TROPI #### [facility] [address] [place], [place] [phone] Owner Operator: Guero Sandoval MD Chloride [Moles/Vol] 105 mmol/L Normal 98-107 [facility] Comment on above: Performed By: #### P T, PTT, BMP, CDP, TROPI #### [facility] [address] [place], [place] [phone] Owner Operator: Guero Sandoval MD CO2 [Moles/Vol] 18 mmol/L Low 20-31 [facility] Comment on above: Performed By: #### P T, PTT, BMP, CDP, TROPI #### [facility] [address] [place], [place] [phone] Owner Operator: Guero Sandoval MD Creatinine [Mass/Vol] mg/dL Low 0.5-0.9 [facility] Comment on above: Performed By: #### P T, PTT, BMP, CDP, TROPI #### [facility] [address] [place] [address] Owner Operator: Guero Sandoval MD eGFR Can not be calculated Normal >60 [facility] Comment on above: Result Comment: These results are not intended for use in patients <18 years of age. eGFR results are calculated without a race factor using the 2020 CKD-EPI equation. Careful clinical correlation is recommended, particularly when comparing to results calculated using previous equations. The CKD-EPI equation is less accurate in patients with extremes of muscle mass, extra-renal metabolism of creatine, excessive creatine ingestion, or following therapy that affects renal tubular secretion. Performed By: #### P T, PTT, BMP, CDP, TROPI #### [facility] [address] [place] [address] Owner Operator: Guero Sandoval MD Glucose [Mass/Vol] 111 mg/dL High 70-99 [facility] Comment on above: Performed By: #### P T, PTT, BMP, CDP, TROPI #### [facility] [address] [place], [place] [phone] Owner Operator: Guero Sandoval MD Potassium [Moles/Vol] 3.8 mmol/L Normal 3.7-5.3 [facility] Comment on above: Performed By: #### P T, PTT, BMP, CDP, TROPI #### [facility] [address] [place], [place] [phone] Owner Operator: Guero Sandoval MD Sodium [Moles/Vol] 136 mmol/L Normal 135-144 [facility] Comment on above: Performed By: #### P T, PTT, BMP, CDP, TROPI #### [facility] [address] [place] [address] Owner Operator: Guero Sandoval MD Urea nitrogen [Mass/Vol] 6 mg/dL Normal 6-20 [facility] Comment on above: Performed By: #### P T, PTT, BMP, CDP, TROPI #### [facility] [address] [place] [address] Owner Operator: Guero Sandoval MD Brain Natri. Peptideon 10-04 Pro-BNP <36 Normal 0-300 [facility] Comment on above: Result Comment: An a ge-independent cutoff point of 300 pg/ml has a 98% negative predictive value excluding acute heart failure. Performed By: #### B CLASSIFIER, TROPI #### [facility] [place] [address] Owner Operator: Thor Hernández MD CBC with Diffon 10-05-2023 Abs. Basophil 0.04 k/uL Normal 0.00-0.20 [facility] Comment on above: Performed By: #### P T, PTT, BMP, CDP, TROPI #### [facility] [address] [place] [address] Owner Operator: Guero Sandoval MD Abs.Imm.Granulocyte 0.16 k/uL Normal 0.00-0.30 [facility] Comment on above: Performed By: #### P T, PTT, BMP, CDP, TROPI #### [facility] [address] [place] [phone] Owner Operator: Guero Sandoval MD Abs.Neutrophil (Seg) 8.05 k/uL High 2.5-7.0 [facility] Comment on above: Performed By: #### P T, PTT, BMP, CDP, TROPI #### [facility] [address] [place] [phone] Owner Operator: Guero Sandoval MD Basophils/100 WBC (Bld) 0 % Normal 0-2 [facility] Comment on above: Performed By: #### P T, PTT, BMP, CDP, TROPI #### [facility] [address] [place] [address] Owner Operator: Guero Sandoval MD Eosinophils (Bld) [#/Vol] 0.08 10*3/uL Normal 0.00-0.4 0 [facility] Comment on above: Performed By: #### P T, PTT, BMP, CDP, TROPI #### [facility] [address] [place] [phone] Owner Operator: Guero Sandoval MD Eosinophils/100 WBC (Bld) 1 % Normal 0-5 [facility] Comment on above: Performed By: #### P T, PTT, BMP, CDP, TROPI #### [facility] [address] [place] [phone] Owner Operator: Guero Sandoval MD Erythrocyte distribution width (RBC) [Ratio] 13.1 % Normal 12.1-15.2 [facility] Comment on above: Performed By: #### P T, PTT, BMP, CDP, TROPI #### [facility] [address] [place] [phone] Owner Operator: Guero Sandoval MD Hematocrit (Bld) [Volume fraction] 28.8 % Low 36.0-46.0 [facility] Comment on above: Performed By: #### P T, PTT, BMP, CDP, TROPI #### [facility] [address] [place] [address] Owner Operator: Guero Sandoval MD Hemoglobin (Bld) [Mass/Vol] 9.8 g/dL Low 12.0-16.0 [facility] Comment on above: Performed By: #### P T, PTT, BMP, CDP, TROPI #### [facility] [address] [place] [address] Owner Operator: Guero Sandoval MD Immature granulocytes/100 WBC (Bld) 2 % Normal 0-5 [facility] Comment on above: Performed By: #### P T, PTT, BMP, CDP, TROPI #### [facility] [address] [place] [address] Owner Operator: Guero Sandoval MD Lymphocytes (Bld) [#/Vol] 1.61 10*3/uL Normal 1.00-4.8 0 [facility] Comment on above: Performed By: #### P T, PTT, BMP, CDP, TROPI #### [facility] [address] [place] [address] Owner Operator: Guero Sandoval MD Lymphocytes/100 WBC (Bld) 15 % Normal 15-40 [facility] Comment on above: Performed By: #### P T, PTT, BMP, CDP, TROPI #### [facility] [address] [place] [address] Owner Operator: Guero Sandoval MD MCH (RBC) [Entitic mass] 27.7 pg Normal 26.0-34.0 [facility] Comment on above: Performed By: #### P T, PTT, BMP, CDP, TROPI #### [facility] [address] [place] [address] Owner Operator: Guero Sandoval MD MCHC (RBC) [Mass/Vol] 34.0 g/dL Normal 31.0-37.0 [facility] Comment on above: Performed By: #### P T, PTT, BMP, CDP, TROPI #### [facility] [address] [place] [address] Owner Operator: Guero Sandoval MD MCV (RBC) [Entitic vol] 81.4 fL Normal 80.0-100.0 [facility] Comment on above: Performed By: #### P T, PTT, BMP, CDP, TROPI #### [facility] [address] [place] [address] Owner Operator: Guero Sandoval MD Monocytes (Bld) [#/Vol] 0.77 10*3/uL Normal 0.00-1.00 [facility] Comment on above: Performed By: #### P T, PTT, BMP, CDP, TROPI #### [facility] [address] [place] [address] Owner Operator: Guero Sandoval MD Monocytes/100 WBC (Bld) 7 % Normal 4-8 [facility] Comment on above: Performed By: #### P T, PTT, BMP, CDP, TROPI #### [facility] [address] [place] [phone] Owner Operator: Guero Sandoval MD Neutrophil (Seg) 75 % Normal 47-75 [facility] Comment on above: Performed By: #### P T, PTT, BMP, CDP, TROPI #### [facility] [address] [place] [address] Owner Operator: Guero Sandoval MD Platelet mean volume (Bld) [Entitic vol] 10.2 fL Normal 6.0-12.0 [facility] Comment on above: Performed By: #### P T, PTT, BMP, CDP, TROPI #### [facility] [address] [place] [address] Owner Operator: Guero Sandoval MD Platelets (Bld) [#/Vol] 275 10*3/uL Normal 140-450 [facility] Comment on above: Performed By: #### P T, PTT, BMP, CDP, TROPI #### [facility] [address] [place], [place] [phone] Owner Operator: Guero Sandoval MD RBC (Bld) [#/Vol] 3.54 10*6/uL Low 4.00-5.20 [facility] Comment on above: Performed By: #### P T, PTT, BMP, CDP, TROPI #### [facility] [address] [place] [address] Owner Operator: Guero Sandoval MD WBC (Bld) [#/Vol] 10.7 10*3/uL Normal 3.5-11.0 [facility] Comment on above: Performed By: #### P T, PTT, BMP, CDP, TROPI #### [facility] [address] [place] [address] Owner Operator: Guero Sandoval MD CT CHEST PULMONARY EMBOLISM W CONTRASTon 10-05-2023 CT CHEST PULMONARY EMBOLISM W CONTRAST EXAMINATION: CTA OF THE CHEST 10/05/2023 5:31 pm TECHNIQUE: CTA of the chest was performed after the administration of intravenous contrast. Multiplanar reformatted images are provided for review. MIP images are provided for review. Automated exposure control, iterative reconstruction, and/or weight based adjustment of the mA/kV was utilized to reduce the radiation dose to as low as reasonably achievable. COMPARISON: Chest radiograph 03/13/2018. HISTORY: ORDERING SYSTEM PROVIDED HISTORY: tachycardia, chest pain TECHNOLOGIST PROVIDED HISTORY: tachycardia, chest pain Decision Support Exception - unselect if not a suspected or confirmed emergency medical condition->Emergenc y Medical Condition (MA) Reason for Exam: tachycardia, chest pain; 27 wks FINDINGS: Pulmonary Arteries: Very little contrast within the pulmonary arteries significantly limiting the exam. The main pulmonary artery is normal in caliber. No large central pulmonary embolism identified. Mediastinum: The thoracic aorta is normal in appearance. The coronary arteries and branch vessels of the superior mediastinum and lower neck are unremarkable. No cardiomegaly or pericardial effusion. The mediastinal esophagus and visualized aspects of the thyroid gland are unremarkable. No lymphadenopathy or pneumomediastinum. Lungs/pleura: The central airways are patent. No pleural effusion or pneumothorax. No consolidation or interlobular septal thickening. Mild scarring versus atelectasis in the lingula. Upper Abdomen: Limited images of the upper abdomen are unremarkable. Soft Tissues/Bones: Partially visualized soft tissue density in the inferolateral right breast measuring 3.2 x 1.6 x 2.6 cm on axial image 74 and sagittal image 4. No acute osseous abnormality. IMPRESSION: 1. Very little contrast within the pulmonary arteries significantly limiting the exam. No evidence of a large central pulmonary embolism identified. A repeat injection was not performed because the patient is . 2. No acute cardiopulmonary process. 3. Partially visualized soft tissue density in the inferolateral right breast measuring 3.2 x 1.6 x 2.6 cm. Recommend correlation with physical exam and consideration of mammography. Interpreted by: Carlos Petersen MD Signed by: Carlos Petersen MD 10/05/23 Final result Normal [facility] Liver Profileon 10-05-2023 Albumin [Mass/Vol] 3.0 g/dL Low 3.5-5.2 [facility] Comment on above: Performed By: #### L IVP #### [facility] [address] [place] [address] Owner Operator: Guero Sandoval MD Alkaline Phos 74 U/L Normal 35-104 [facility] Comment on above: Performed By: #### L IVP #### [facility] [address] [place] [address] Owner Operator: Guero Sandoval MD ALT [Catalytic activity/Vol] U/L Low 5-33 [facility] Comment on above: Performed By: #### L IVP #### [facility] [address] [place] [address] Owner Operator: Guero Sandoval MD AST [Catalytic activity/Vol] 9 U/L Normal <32 [facility] Comment on above: Performed By: #### L IVP #### [facility] [address] [place], [place] [phone] Owner Operator: Guero Sandoval MD Bilirubin [Mass/Vol] 0.3 mg/dL Normal 0.3-1.2 [facility] Comment on above: Performed By: #### L IVP #### [facility] [address] [place], [place] [phone] Owner Operator: Guero Sandoval MD Bilirubin, Indirect Can not be calculated Normal 0.0-1.0 [facility] Comment on above: Performed By: #### L IVP #### [facility] [address] [place], [place] [phone] Owner Operator: Guero Sandoval MD Bilirubin.indirect [Mass/Vol] mg/dL Normal <0.3 [facility] Comment on above: Performed By: #### L IVP #### [facility] [address] [place], [place] [id number] Owner Operator: Guero Sandoval MD Protein [Mass/Vol] 5.9 g/dL Low 6.4-8.3 [facility] Comment on above: Performed By: #### L IVP #### [facility] [address] [place], [place] [phone] Owner Operator: Guero Sandoval MD PTon 10-05-2023 INR Coag (PPP) [Relative time] 1.0 {INR} Normal [facility] Comment on above: Result Comment: Therapeutic Range: Moderate Anticoagulant Intensity: INR = 2.0-3.0 High Anticoagulant Intensity: INR = 2.5-3.5 Performed By: #### P T, PTT, BMP, CDP, TROPI #### [facility] [address] [place], [place] [phone] Owner Operator: Guero Sandoval MD PT Coag (PPP) [Time] 13.6 s Normal 11.5-14.2 [facility] Comment on above: Performed By: #### P T, PTT, BMP, CDP, TROPI #### [facility] [address] [place], [place] [phone] Owner Operator: Guero Sandoval MD Troponinon 10-05-2023 Troponin, High Sens <6 Normal 0-14 [facility] Comment on above: Result Comment: High Sensitivity Troponin values cannot be compared with other Troponin methodologies. Performed By: #### B CLASSIFIER, TROPI #### [address] [phone] Owner Operator: Thor Hernández MD Troponin, High Sens <6 Normal 0-[address] [place] [address] Comment on above: Result Comment: High Sensitivity Troponin values cannot be compared with other Troponin methodologies. Performed By: #### P T, PTT, BMP, CDP, TROPI #### [facility] [address] [place] [address] Owner Operator: Guero Sandoval MD UA w/Reflex Cultureon 2023 Bilirubin, SemiQt,Ur Negative Normal NEG [facility] [place] Comment on above: Performed By: #### U MICAO, UAX #### [address] [phone] Owner Operator: Thor Hernández MD Blood, Urine Negative Normal NEG [facility] Comment on above: Performed By: #### U MICAO, UAX #### [facility] [place], [place] [phone] Owner Operator: Thor Hernández MD Clarity (U) Cloudy Abnormal CLEAR [facility] Comment on above: Performed By: #### U MICAO, UAX #### [address] [phone] Owner Operator: Thor Hernández MD Color (U) Yellow Normal YEL [facility] Comment on above: Performed By: #### U MICAO, UAX #### [address] [address] Owner Operator: Thor Hernández MD Glucose Ql (U) 1+ mg/dL Abnormal NEG [facility] Comment on above: Performed By: #### U MICAO, UAX #### [facility] [address] [place] [address] Owner Operator: Thor Hernández MD Ketones Ql (U) TRACE Abnormal NEG [facility] Comment on above: Performed By: #### U MICAO, UAX #### [address] [address] Owner Operator: Thor Henrández MD Leukocyte esterase Test strip Ql (U) Negative Normal NEG [facility] Comment on above: Performed By: #### U MICAO, UAX #### [address] [address] Owner Operator: Thor Hernández MD Nitrite,Ur Negative Normal NEG [facility] Comment on above: Performed By: #### U MICAO, UAX #### [address] [address] Owner Operator: Thor Hernández MD PH,Ur 6.0 Normal 5.0-8.0 [facility] Comment on above: Performed By: #### U MICAO, UAX #### [facility] [address] [place] [address] Owner Operator: Thor Hernández MD Protein Ql (U) TRACE Abnormal NEG [facility] Comment on above: Performed By: #### U MICAO, UAX #### [address] [address] Owner Operator: Thor Hernández MD Spec. Sterling,Ur 1.028 Normal 1.005-1.030 [facility] Comment on above: Performed By: #### U KAYDEN, UAX #### [address] [address] Owner Operator: Thor Hernández MD Urobilinogen,Ur Normal Normal 0.0-1.0 [facility] Comment on above: Performed By: #### U KAYDEN, UAX #### [address] [address] Owner Operator: Thor Hernández MD Urinalysis,Microon 4 Bacteria MODERATE Abnormal NONE [facility] Comment on above: Performed By: #### U KAYDEN, UAX #### [address] [address] Owner Operator: Thor Hernández MD Casts 2 TO 5 HYALINE Normal 0-8 [facility] Comment on above: Result Comment: Refe rence range defined for non-centrifuged specimen. Performed By: #### U KAYDEN, UAX #### [address] [address] Owner Operator: Thor Hernández MD Epithelial cells LM Ql (Urine sed) 20 TO 50 Normal 0-5 [facility] Comment on above: Performed By: #### U KAYDEN, UAX #### [address] [address] Owner Operator: Thor Hernández MD Urine RBC's 0 TO 2 Normal 0-4 [facility] Comment on above: Result Comment: Refe rence range defined for non-centrifuged specimen. Performed By: #### U KAYDEN, UAX #### [address] [address] Owner Operator: Thor Hernández MD Urine WBC's 5 TO 10 Normal 05 [facility] Comment on above: Performed By: #### U RICHYO, UAX #### [facility] [address] [place] [address] Owner Operator: Thor Hernández MD AFP, Maternalon 07-28-2023 Determined by Ultrasound [facility] Comment on above: Performed By: #### T SH, FT4, FT3 #### [facility] [address] [place] [address] Owner Operator: Thor Hernández MD #### AAFPM #### [facility] [address] [place] [address] Owner Operator: Thor Hernández MD [address] [phone] Owner Operator: Tim Vizcarra MD Due Date SEE NOTE [facility] Comment on above: Result Comment: Resu lts for Estimated Due Date: 01 06 24 Performed By: #### T SH, FT4, FT3 #### [facility] [address] [place] [address] Owner Operator: Thor Hernández MD #### AAFPM #### [facility] [address] [place] [address] Owner Operator: Thor Hernández MD [address] [address] Owner Operator: Tim Vizcarra MD Family History No Normal [facility] Comment on above: Performed By: #### T SH, FT4, FT3 #### [facility] [address] [place] [address] Owner Operator: Thor Hernández MD #### AAFPM #### [facility] [address] [place] [address] Owner Operator: Thor Hernández MD [address] [address] Owner Operator: Tim Vizcarra MD Gestat Age (exact) 16 wks, 4 days Normal [facility] Comment on above: Performed By: #### T BERNICE, FT4, FT3 #### [address] [address] Owner Operator: Thor Hernández MD #### AAFPM #### [address] [address] Owner Operator: Thor Hernández MD [address] [address] Owner Operator: Tim Vizcarra MD Ins Req Matern Diab No Normal [facility] Comment on above: Performed By: #### T SH, FT4, FT3 #### [address] [address] Owner Operator: Thor Hernández MD #### AAFPM #### [address] [address] Owner Operator: Thor Hernández MD [address] [phone] Owner Operator: Tim Vizcarra MD Interpretation Screen Neg Normal [facility] Comment on above: Result Comment: (NOT E) INTERPRETATION: SCREEN NEGATIVE for open spina bifida Neural Tube Defects (NTD) Negative Pre-Test Post-Test Cutoff Neural Tube Defects Risks 1:452 1:3230 1:103 Comments: The risk of an open neural tube defect is less than the twin screening cut-off. This test was developed and its performance characteristics determined by [employer]. It has not been cleared or approved by the [place] Food and Drug Administration. This test was performed in a CLIA certified laboratory and is intended for clinical purposes. Performed By: #### T SH, FT4, FT3 #### [address] [address] Owner Operator: Thor Hernández MD #### AAFPM #### [address] [address] Owner Operator: Thor Hernández MD [facility] [address] [place], [place] [phone] Owner Operator: Tim Vizcarra MD [age] [facility] Comment on above: Performed By: #### T , FT4, FT3 #### [facility] [address] [place] [address] Owner Operator: Thor Hernández MD #### AAFPM #### [facility] [address] [place] [address] Owner Operator: Thor Hernández MD [facility] [address] [place], [place] [phone] Owner Operator: Tim Vizcarra MD Maternal Race Nonblack [facility] Comment on above: Performed By: #### T , FT4, FT3 #### [facility] [address] [place] [address] Owner Operator: Thor Hernández MD #### AAFPM #### [address] [address] Owner Operator: Thor Hernández MD [facility] [address] [place], [place] [phone] Owner Operator: Tim Vizcarra MD Maternal Weight 239.0 lbs. [facility] Comment on above: Performed By: #### T , FT4, FT3 #### [facility] [address] [place] [address] Owner Operator: Thor Hernández MD #### AAFPM #### [address] [address] Owner Operator: Thor Hernández MD [facility] [address] [place] [address] Owner Operator: Tim Vizcarra MD MoM for AFP 1.71 [facility] Comment on above: Performed By: #### T SH, FT4, FT3 #### [facility] [address] [place] [address] Owner Operator: Thor Hernández MD #### AAFPM #### [address] [address] Owner Operator: Thor Hernández MD [address] [address] Owner Operator: Tim Vizcarra MD Number of Fetuses Twins Normal [facility] Comment on above: Performed By: #### T SH, FT4, FT3 #### [address] [address] Owner Operator: Thor Hernández MD #### AAFPM #### [address] [address] Owner Operator: Thor Hernández MD [address] [address] Owner Operator: Tim Vizcarra MD Patient's AFP 46 ng/mL Normal [facility] Comment on above: Performed By: #### T SH, FT4, FT3 #### [address] [address] Owner Operator: Thor Hernández MD #### AAFPM #### [address] [address] Owner Operator: Thor Hernández MD [facility] [address] [place] [address] Owner Operator: Tim Vizcarra MD Smoking Unknown Normal [facility] Comment on above: Performed By: #### T SH, FT4, FT3 #### [facility] [address] [place] [address] Owner Operator: Thor Hernández MD #### AAFPM #### [address] [address] Owner Operator: Thor Hernández MD [address] [phone] Owner Operator: Tim Vizcarra MD Specimen See Note [facility] Comment on above: Result Comment: (NOT E) Initial sample Performed By: [address] [place] [address] Interactive Media Designer: Morro Modi MD, PhD CLIA Number: [id number] Performed By: #### T SH, FT4, FT3 #### [address] [address] Owner Operator: Thor Hernández MD #### AAFPM #### [address] [address] Owner Operator: Thor Hernández MD [address] [phone] Owner Operator: Tim Vizcarra MD [facility], [facility] 07-27-2023 Current Smoking INFORMATION NOT PROVIDED [facility] Comment on above: Performed By: #### T SH, FT4, FT3 #### [address] [address] Owner Operator: Thor Hernández MD #### AAFPM #### [address] [address] Owner Operator: Thor Hernández MD [address] [address] Owner Operator: Tim Vizcarra MD [facility] Comment on above: Performed By: #### T SH, FT4, FT3 #### [address] [address] Owner Operator: Thor Hernández MD #### AAFPM #### [address] [address] Owner Operator: Thor Hernández MD [facility] [address] [place], [place] [phone] Owner Operator: Tim Vizcarra MD Diabetic Negative [facility] Comment on above: Performed By: #### T , FT4, FT3 #### [address] [address] Owner Operator: Thor Hernández MD #### AAFPM #### [address] [address] Owner Operator: Thor Hernández MD [address] [phone] Owner Operator: Tim Vizcarra MD Donor Egg INFORMATION NOT PROVIDED [facility] Comment on above: Performed By: #### T , FT4, FT3 #### [address] [address] Owner Operator: Thor Hernández MD #### AAFPM #### [address] [address] Owner Operator: Thor Hernández MD [facility] [address] [place], [place] [phone] Owner Operator: Tim Vizcarra MD Estimated Due Date 01/06/2024 [facility] Comment on above: Performed By: #### T SH, FT4, FT3 #### [address] [address] Owner Operator: Thor Hernández MD #### AAFPM #### [address] [address] Owner Operator: Thor Hernández MD [facility] [address] [place] [address] Owner Operator: Tim Vizcarra MD Family History Negative [facility] Comment on above: Performed By: #### T SH, FT4, FT3 #### [facility] [address] [place] [address] Owner Operator: Thor Hernández MD #### AAFPM #### [facility] [address] [place] [address] Owner Operator: Thor Hernández MD [address] [address] Owner Operator: Tim Vizcarra MD In Vitro Fertalizat INFORMATION NOT PROVIDED [facility] Comment on above: Performed By: #### T SH, FT4, FT3 #### [facility] [address] [place] [address] Owner Operator: Thor Hernández MD #### AAFPM #### [facility] [address] [address] Owner Operator: Thor Hernández MD [facility] [address] [place] [address] Owner Operator: Tim Vizcarra MD LMP date 2023 [facility] Comment on above: Performed By: #### T SH, FT4, FT3 #### [facility] [address] [place] [address] Owner Operator: Thor Hernández MD #### AAFPM #### [facility] [address] [place] [address] Owner Operator: Thor Hernández MD [facility] [address] [place] [address] Owner Operator: Tim Vizcarra MD Maternal date 1990 [facility] Comment on above: Performed By: #### T SH, FT4, FT3 #### [facility] [address] [place] [address] Owner Operator: Thor Hernández MD #### AAFPM #### [facility] [address] [place] [address] Owner Operator: Thor Hernández MD [facility] [address] [place] [address] Owner Operator: Tim Vizcarra MD Maternal Weight 239 [facility] Comment on above: Performed By: #### T SH, FT4, FT3 #### [facility] [address] [place] [address] Owner Operator: Thor Hernández MD #### AAFPM #### [facility] [address] [place] [address] Owner Operator: Thor Hernández MD [facility] [address] [place] [address] Owner Operator: Tim Vizcarra MD Monochorionic Twins Positive Normal [facility] Comment on above: Performed By: #### T SH, FT4, FT3 #### [facility] [address] [place] [address] Owner Operator: Thor Hernández MD #### AAFPM #### [address] [address] Owner Operator: Thor Hernández MD [facility] [address] [place] [address] Owner Operator: Tim Vizcarra MD Patient Weight Units LBS Normal [facility] Comment on above: Performed By: #### T SH, FT4, FT3 #### [facility] [address] [place] [address] Owner Operator: Thor Hernández MD #### AAFPM #### [address] [address] Owner Operator: Thor Hernández MD [facility] [address] [place] [address] Owner Operator: Tim Vizcarra MD Race (Maternal) Normal [facility] Comment on above: Performed By: #### T SH, FT4, FT3 #### [address] [address] Owner Operator: Thor Hernández MD #### AAFPM #### [address] [address] Owner Operator: Thor Hernández MD [address] [address] Owner Operator: Tim Vizcarra MD Repeat Specimen INFORMATION NOT PROVIDED Normal [facility] Comment on above: Performed By: #### T SH, FT4, FT3 #### [address] [address] Owner Operator: Thor Hernández MD #### AAFPM #### [address] [address] Owner Operator: Thor Hernández MD [address] [phone] Owner Operator: Tim Vizcarra MD Valproic/Carbamazep INFORMATION NOT PROVIDED [facility] Comment on above: Performed By: #### T SH, FT4, FT3 #### [address] [address] Owner Operator: Thor Hernández MD #### AAFPM #### [address] [address] Owner Operator: Thor Hernández MD [address] [phone] Owner Operator: Tim Vizcarra MD Thyroxine, Freeon 07-27-2023 Thyroxine, Free 1.0 ng/dL Normal 0.92-1.68 [facility] Comment on above: Performed By: #### T SH, FT4, FT3 #### [address] [address] Owner Operator: Thor Hernández MD #### AAFPM #### [address] [address] Owner Operator: Thor Hernández MD [facility] [address] [place], [place] [phone] Owner Operator: Tim Vizcarra MD Protein,Tot,[place] [facility] 2023 Creatinine [Mass/Vol] 273.0 mg/dL High 28.0-217.0 [facility] Comment on above: Performed By: #### U RTPRT #### [address] [address] Owner Operator: Thor Hernández MD Tot Prot. Conc. 21 mg/dL Normal [facility] Comment on above: Result Comment: No n ormal range established. Performed By: #### U RTPRT #### [address] [address] Owner Operator: Thor Hernández MD TP/Cre Ratio 0.08 Normal [facility] Comment on above: Performed By: #### U RTPRT #### [address] [address] Owner Operator: Thor Hernández MD T3, Freeon 7 Free T3 [Mass/Vol] 3.40 pg/mL Normal 2.00-4.40 [facility] Comment on above: Performed By: #### T SH, FT4, FT3 #### [address] [address] Owner Operator: Thor Hernández MD #### AAFPM #### [address] [address] Owner Operator: Thor Hernández MD [facility] [address] [place] [address] Owner Operator: Tim Vizcarra MD Thyroid Stim. Horm.on 2023 Thyroid Stim. Horm. <0.01 Low 0.27-4.20 [facility] Comment on above: Performed By: #### T SH, FT4, FT3 #### [facility] [address] [place] [address] Owner Operator: Thor Hernández MD #### AAFPM #### [facility] [address] [place] [address] Owner Operator: Thro Hernández MD [facility] [address] [place] [phone] Owner Operator: Tim Vizcarra MD ED Note-Physicianon 05-14-19 24 ED Note-Physician Basic Information Time Seen: Greg [...] see dentistry until she is cleared by [facility]. She does not have an appointment for [facility] to next week. She has no OB [...] day(s), # 15 tab(s), Refills(s) 0, Pharmacy: [facility], 160, cm, 05/13/23 11:33:00 EST, Height/Length [...] Oral, q6hr Follow-up With When Contact Information [employer] In 3 days 05/16/2023 EDT [address] [place], [place] [address] (1) Additional Instructions: Dentistry follow-up Patient [...] made to ensure accuracy, however, inadvertently computerized payroll processor mistakes may be present. Appropriate healthcare PPE was used in evaluating this patient. Problem List/Past Medical History Ongoing Acute hepatitis C Anxiety Apnea, sleep Dental caries PCOS (polycystic ovarian syndrome) Historical No qualifying data Procedure/Surgical History Delivery. Medications Inpatient ampicillin-sulbacta m additive + Sodium Chloride 0.9% intravenous solution 100 (more content not included)... Normal [facility] Comment on above: Result Comment: Elec tronically Signed By: Greg Stratton PA-C\.br\Date and Time Signed: 05/13/23 12:45 EST\.br\Electronically Co-Signed By: Jonathan Martinez DO\.br\Date and Time Co-Signed: 05/14/23 07:40 EST Consent for Treatmenton Consent for Treatment [id number] EC#[id number] [facility] Discharge Instructionson Discharge Instructions [id number] Normal [facility] ED Clinical Summaryon 2023 ED Clinical Summary [address] [address] ED Clinical Summary Person Information Name: TIA MONROE Maria [place] Age: 33 Years : 1990 Sex: Female Language: Citizen Of [place] PCP: Linda Sheppard DO Marital Status: Visit [...] 05/13/2023 13:02:19 05/13/2023 13:02:19 05/13/2023 13:02:19 ADDRESS: [address] [facility] [id number] PHYS DOC NOTES: MEDICAL INFORMATION: Prescriptions Given: New Medications [facility], [address], [place] [id number], [phone] oxycodone (oxyCODONE 5 mg Tab) 1 Tablets [...] Dental Abscess Follow up: With: Address: When: [place] [id number] Business (1) In 3 days 05/16/2023 Comments: Dentistry follow-up DIAGNOSIS: Dental abscess Normal [facility] ED Patient Education Noteon 05-13-2023 ED [...] these instructions at home: Medicines ? Take lqnx-yuh-blcpbst and prescription medicines only as told by [...] mouth. ? (more content not included)... Normal [facility] ED Patient Summaryon 024 ED Patient Summary [address] [address] Patient Discharge Instructions Person Information Name: TIA MONROE Age: 33 Years Arrival Date: 05/13/2023 11:19:01 Discharge Diagnosis: Dental abscess Primary Care Physician: Linda Sheppard DO Provider Information Primary Provider: Jonathan Martinez DO Advanced Postal Service Clerk:Greg Stratton PA-C The exam and treatment you received in the Emergency Department were for an urgent problem and are not intended as complete care. It is important that you follow up with a doctor, nurse practitioner, or physician?s under water assistant for ongoing care. If your symptoms become worse or you do not improve as expected and you are unable to reach your usual health care provider, you should return to the Emergency Department. We are available 24 hours a day. TIA MONROE has been given the following list of patient education materials, prescriptions and follow-up instructions: Follow-up Instructions: With: Address: When: [employer] [address] [address] Business (1) In 3 days 05/16/2023 Comments: Dentistry follow-up In the event that this physician does not participate in your insurance network, please consult with your insurance company to find a nearby participating provider. Patient Education Materials: Dental Abscess A MESSAGE TO ALL PATIENTS REGARDING OPIOIDS PRESCRIPTION OPIOIDS: WHAT YOU NEED TO KNOW Prescription opioids can be used to help relieve tanrxpvc-pw-vlvgup pain and are often prescribed following a [...] be struggling with addiction, tell your health critical care paramedic and ask for guidance or call [facility] National Helpline at 2-560-6 (more content not included)... Normal [facility] Discharge Instructionson Discharge Instructions [id number] 40 [id number] Normal [facility] ED Clinical Summaryon 2023 ED Clinical Summary [place] [id number] ED Clinical Summary Person Information Name: TIA MONROE [facility] 33 Years : 1990 Sex: Female Language: Citizen Of [place] PCP: Linda Sheppard DO Marital Status: Visit [...] 23:59:00 05/11/2023 23:59:00 05/11/2023 23:59:00 ADDRESS: [address] [facility] [id number] PHYS DOC NOTES: MEDICAL INFORMATION: Prescriptions Given: New Medications [facility], [address], [place] [id number], [phone] amoxicillin-clavula cindi (Augmentin 875 mg oral tablet) [...] Medication PATIENT EDUCATION INFORMATION: Instructions: Dental Pain, Dwva-tt-Zeio Follow up: With: Address: When: Linda Sheppard DO, Amelie [address], [address] [place], [place] [id number] In 3 days 05/14/2023 DIAGNOSIS: 1:Pain, dental; 2:Infected dental caries; 3:First trimester ; Periapical abscess without sinus Normal [facility] ED Note-Physicianon 05-12-19 ED Note-Physician Basic Information Time Seen: Violet Waltres PA-C 05/11/2023 22:59 Chief Complaint pt arrives for c/o dental pain on the right upper side. states cannot see her denitist d/t being . pt states seen in [place] and started on amoxcillin. History of Present Illness Patient is a 7-week 33-year-old female with history of PCOS that presents to the ED with her for evaluation of dental pain. Patient says pain started on Tuesday. She localizes it to the right upper jaw, radiates into her face ear and cheek. She went to [facility] yesterday and was initiated on amoxicillin [...] day(s), # 14 tab(s), Refills(s) 0, Pharmacy: [facility] #16, 160, cm, 05/11/23 21:53:00 EST, Height/Length Dosing, 110, kg, 05/11/23 21:53:00 EST, Weight Dosing chlorhexidine topical, 0.018 gm, 15 mL, Oral, BID, 480 mL, Refill(s) 0, (swish and spit; do not swallow), [facility] #16, 160, cm, 05/11/23 21:53:00 EST, Height/Length Dosing, 110, kg, 05/11/23 21:53:00 EST, Weight Dosing (more content not included)... Normal [facility] Comment on above: Result Comment: Elec tronically Signed By: Selena HALL, Violet Damon\.br\Date and Time Signed: 05/11/23 23:35 EST\.br\Electronically Co-Signed [...] these instructions at home: Medicines ? Take rkef-yab-xyyubry and prescription medicines only as told by [...] to the area. Brushing your teeth ? [place] your teeth twice a day using a [...] when you eat or drink. ? Take sqhv-tju-gkhxuja and prescription medicines only as told by [...] Reviewed: 11/26/2020 Elsevier Patient Education ? 2022 [employer] Normal [facility] ED Patient Summaryon 024 ED Patient Summary [address] [address] Patient Discharge Instructions Person Information Name: TIA MONROE Age: 33 Years Arrival Date: 05/11/2023 21:25:54 Discharge Diagnosis: 1:Pain, dental; 2:Infected dental caries; 3:First trimester ; Periapical abscess without sinus Primary Care Physician: Linda Sheppard DO Provider Information Primary Provider: Zac Fields M.D. Advanced Postal Service Clerk:Violet Walters PA-C The exam and treatment you received in the Emergency Department were for an urgent problem and are not intended as complete care. It is important that you follow up with a doctor, nurse practitioner, or physician?s under water assistant for ongoing care. If your symptoms [...] Instructions: With: Address: When: Linda Sheppard DO [address] [place] [address] Amelie Julien C, [facility] [address] [place] [address] In 3 days 05/14/2023 In the event that this physician does not participate in your insurance network, please consult with your insurance company to find a nearby participating provider. Patient Education Materials: Dental Pain, Bpru-ec-Zjws A MESSAGE TO ALL PATIENTS REGARDING OPIOIDS PRESCRIPTION OPIOIDS: WHAT YOU NEED TO KNOW Prescription opioids can be used to help relieve hpdlxqln-mu-vxpgrz pain and are often prescribed following a [...] be struggling with addiction, tell your health critical care paramedic an (more content not included)... [facility] Consent for Treatmenton 03- Consent for Treatment [phone] [id number]#[id number] [facility] Progesteroneon 12-28-2022 Progesterone 12.60 ng/mL [facility] Comment on above: Result Comment: Female: Follicular phase <0.19 ng/mL Ovulation phase 0.06-4.14 ng/mL Luteal phase 4.11-14.5 ng/mL Postmenopausal <0.13 ng/mL Performed By: #### P NICKY #### [facility] [place] [address] Owner Operator: Thor Hernández MD Progesteroneon 11-24-2022 Progesterone 7.18 ng/mL High 0.0-0.15 [facility] Comment on above: Result Comment: Female: Follicular phase <0.19 ng/mL Ovulation phase 0.06-4.14 ng/mL Luteal phase 4.11-14.5 ng/mL Postmenopausal <0.13 ng/mL Performed By: #### P NICKY #### [employer] [address] [place] [address] [id number] Owner Operator: Thor Hernández MD , Urineon 3 HCG ( test) Ql (U) Negative NEGATIVE [facility] XR ANKLE RIGHT (MIN 3 VIEWS) on 09-04-2022 FINDINGS/IMPRESSION : No acute displaced fracture identified. Ankle mortise is symmetric. There is a 1 mm tiny calcified body which is remote appearing near the distal fibular tip. Minimal ankle soft tissue edema. [facility] EXAM: XR ANKLE RIGHT (MIN 3 VIEWS) INDICATION: Reason for exam:->swelling COMPARISON: None. TECHNIQUE: Radiographs as described above [facility] Bettye Johnson MD - 09/04/2022 EXAM: XR ANKLE RIGHT (MIN 3 VIEWS) INDICATION: Reason for exam:->swelling COMPARISON: None. TECHNIQUE: Radiographs as described above IMPRESSION: FINDINGS/IMPRESSION : No acute displaced fracture identified. Ankle mortise is symmetric. There is a 1 mm tiny calcified body which is remote appearing near the distal fibular tip. Minimal ankle soft tissue edema. [facility] Radiology Study observation (narrative) [facility] XR ANKLE RIGHT (MIN 3 VIEWS) Ordered By: Bettye Johnson on 09-04-2022 [facility] Work Phone: Coding Summary.on 07-09-2022 Coding Summary. CD:[id number] bWw+PGhlYWQ+[id number] lOSywgQVBQTElOSyIgb eHsQQ9gkOYaHWTw IC8+UL0gNEQgGpzfqJS cd3L2oOP6Z65rmm3zKX nbrHM7CVSqEvFlmyjrh 9srcYk4YQkeWzcdWpAx IYNbzR25NDK9vW07Dh2 8aEWnlMKdt5kdrJa1Re CfGQCgYIO8eHfoBEuvg 2DuMJXuH13blHRzg1C8 IGNvbGxhcHNlOyBlbXB 1tA2bWGzjflyqk8vddy hxXmr2xk42wJGce0M8w TS4S5CjhlD1OOXrqGTl DwnjtNOTnL5eihere9n vtqqcToBpNTXwAGk2LZ v2LZAajWtiOvRfHB55B FQ9OTPpviNvA5CzWMHk fQffIvX8u9R2Dy8JI3Z AWbmsC1OGEZVEPYfgaA Q+NR91mh94L7UuJdlcK zb0ONEmUQY5dAO0cW3p CPDtNAykp7Q3xIT5U9H usvYtpv4ty0ucYDFcPG zqR12dqEGhg5E0PLJjd LZ7VUAeuPdgXvOcnY37 Oyc+EUUoxTflt1UlEbf uf3tyq9gycYb9BdnbWI QwrrFkfMxsYUI0x2TeQ b1hEYImsDH0yRW9aH8e LhWzWdH0WXagO958RjW zbCQtGoofL74eJ4WkyK A+YCRvXdy9EZPhgZauQ B7gT8XcVSRuibymqMHy zSacMT8eUACxekfjFGH wlG7nITMiJ6n8TsEwLk H2TTxmR9WgHOHmjbqoC a99qI0oWeTtZvF7YSeo Q0FvktW5WYHfhPSwHSi vQYL5L84ld6Q9ZYWwCK EaRSZ0uWJ3iU4gpDnqk jogbGVmdDsgdmVydGlj PGylQDfwD511RGLbiYc nPkNvZGluZyBEYXRlOi AgMDUvMDUvMjAyMzwvd GQ+JGArXWH6rYswEIRh yAVxBPyrLe6dgKslpHy hTN2vCSJugrxsJDYtaP 8fTANfhYFmaKwpVX0gF AUsyjotc714VfAbHIO7 JPFbdDJbM9LkvC5eXyT zZWMbREHqZ5EedHMrLM fjS803PPenTpR3SIJlk mUyV8HxFFAgaEqpNpM8 m7Z3Cn8Ou9MvmqiiF0S ubROgDgJrQbkcPKs0S3 RkPjwvdHI+TS81CQYnA C33PIw1BZN4qErtDHbt YXHwQ0PimF0eYiDoWIQ kZGRkOyc+PHRhYmxlIH dpZHRoPScxMDAlJyBzd LczFF8lVy1jZWEzHTXo bCwsmYVgVcCep1mxSHR mZZtoSW2yaHkiT3VvgI E0JTIkt6y2Bn56M10iN 3JvdXA+GICxrIX2cCX0 qW9dFlXkSyB5HWtsU47 8HzBhzIUeKdfep5zsz3 euoUi6CtO1PRHkpeLdf PuzLVK7k8KjRh39R73u IHdpZHRoPSIxNSUiIHZ ugMlaod3bcY2tMc3+PG XnfQN9yXB7dO5mGiVyZ iE5GQejV790LhPhkUIb Lvuuv5rve7cbeUc1MpR dZKXlfvCwyGbeVGG5b9 CsOc27C1WfnIwfn4QeJ fg8zl17tHRmc8Z9eQV1 Z1PdXNKwjwncbXSkiBl sYS7eXVAbdsmwLNAtaH 0qYXYvS6x9EpXtZaO8G NybV2IxonW2UVAuqXEa ANZbyTMAnN1hlvypu9l cefyoLxGgRLRxCWa6CW s8UMEfcJguVaSdAQM8N iN3JNS0kZJxvV0kcCir wmttjT8tDxb+RYG6aNC pdIRUWR5eEmrqtBM+PH GsTEI7cRbwIZsjJYBhw K9lBVEuD3i5ReIxKkS7 WQmaS1AslrW3GBYtiQV fJFOkgZNDbR0maamrl0 cecpicPdCpWVEcWIm0J Ou2PENixUfnGnLqCGI7 VjO1SEX1vIYhaQ8gbMx gfgrqkE0rSwr+QmlydG agXBB5MCr3Y1SiRnb6S DInhTbpRW2ieXLaTUbk Ow7vsMkhtYhxJP4aRTQ zhqefz403MqVwe8paGO HglLBuJDsaQMX7W73gj 8Z1ESWvVHFmYMZ0gYX5 sW4ybQrewixiwUUvqEe gdmVydGljYWwtYWxpZ2 86NZLkiLgpIqUqPNz4I 5LcQux0BERlxZycNZ0p sASgOBvjNd0sgSwrhCs nNZ8hHBQviaxnk732Hy Hxe0buSBAsmKXyNSehU LC0W75ke0G2XPIxKXTl SGO6sEZ8yK8ucJudiej gbGVmdDsgdmVydGljYW xfTPubQ975ZCEhlWmfX qNlgYf6O0PdFfv2ZBXe uQdyQB1xvIOcSRdkRa0 ttNinwVvwPY8vUKRmii gto755WaBta6mtWZKcx WWdJKydORZ7C60fz4T3 TVVgKPFuMPB3zCH5iA4 hbGlnbjogbGVmdDsgdm WyeZikZZocVDdeZ403H HRvcDsnPlBhdGllbnQg XEawOBz1B2CfHjjutAA +AA84ENKcVX83hXNgqE Pia0zroWn3IlRfFZQvL QK1jEvcRMvqe3UjYWCi L61wqVIcu2X6CVYurCd xiTFeHaPnaZX1vQ9vYO rezjvtu9zqyucbVipke 2gsgc84mO47M59yHTwn ZHRoPSIzMCUiIHZhbGl kit2vvS7tZr9+PGNvbC V4lHQ6dI7cBHFxVlS4P VjrY131RmYqvHDcZfby e7nnf7iniEa6VeE3MBM gsvTpgHjlAQZ8w7CsRl 37L69mBMgmBQViRFVkH HUfBXLkrMgfgd0gqW1d Ii8+BUGcmTE2zYT5cE1 cWtHuLaY7ITfdN089Er SqaXFrAlfmZ09oL2Kzy XA+MGGfCzk8YPMktVkh HS9rqTHbIJboZv6cCUP 5PiSsNbVmQSuaD2AbER VaugwrhrfpfNB3LGZgX MVvsN91Zk1zjBjdYPHz fIXFtZ3eilrbt2wioii bMxVhOOGhCLo3MZq5RQ PrrIprLxFeZRF2LyH3L OZ2tNZegN4toOvbxtdx mB9rI1RfRTMketvePc0 8aV1xXyIsOcG0MCsyMq c+Ov4ETkNYKmntFyUJX kRJRTwvdGQ+PHRkIHN0 pLigSCinESNgjW8iRAV lT5h0EqTiGcT6MEudH1 CtOSUyhfizDx61sX9vU pEiIuE8ZEprP2HlafL1 ZRYdzXWfWKlvKXW6M18 df7R4WLFmLPRwZHR9wF Y0yD0riEzlvilkvAOgj DsgdmVydGljYWwtYWxp U974QVIxnZicDpTbYdH 3JsR2NBX5E7RzJey0AW FmvIteZD0heAYpKJhxY z9tsZgffZzaUG0kVGOr sduoMDLdlL8yNHEpkDB ozEhfVA2oREPfksczy6 79KoAwWMI8TNPvtDMyH 9VdhJ8lNvVsDNHwFBKk V2UauKJaHAhbT422ZHr oXrF2RJArxhXcD6QePB KtxErgHuO8f7R3Pp3mE iBZZWFyczwvdGQ+PHRk ETK4lNhaCUdjXHBbgH7 iQVNjL2a0HsLmQnM7ZG esI0EtSZIcnyasPy89h J0gZpJsEqB1MJmsQ1Tu qvP9FDUcrAFeUBpwDUD 4K56qy5A1KAPpYQQmZE Q9mIH3iB1nxXyxbqsuo GVmdDsgdmVydGljYWwt DFliX625XRQnbXgrAvK lbWFsZTwvdGQ+PHRkIH K4pKhdDFwnJNFpuX2pN COvX7h5PqUzXjD3WKxh V2RiBXYchkllQd44zB6 rDxGsHvA8XDhpY4Iolg N5JWDcvSNwGZvmMED2V 25uh6G8RQJhGDVfKDG3 gKA4nI2bfVgmebfhpII mdDsgdmVydGljYWwtYW nfU956TRBelMvwYtRhq E4jNFWpAJmscXUayJzc dGQ+QC07cm33W6VyKom eNkh3SNDiXDS3iQC5hB 4fMHAdFQyee3Y0jSE3T 6ZbarVhik1cp5euVTUq EXsgG26dqBEkn4R4PVW cwMW3OAGbjGreYwJjsC 93Oyc+SNJuxLzvz8VuJ itjn7cbw9kjfFy1PpRh CKMhgdNwyIzpERD6l0C eIm28I68bXCykEGUtKB RwTVPpJKUrgFbfwa0no G9wIi8+PHDhsWM6gKK0 vX2xVqLqTkI5JLtgN97 5BjMhyJFtInhrz5fyx9 npqRq7KgPkLVYrwiJbq QmdPDQ2m7BqEf61I4Nt iZaqd1KkUgt2ru38sSI dr3O0vHN9S5XuZFAtgy vhdRKbpFxvTA3pVTNvc movPBNszS0cBMPjT2a5 DpXjTvS4SPzpU0YhftN 6IGJvbGQgMTBwdCBUaW 4ksuxqd6qigsknWpKpD OAwYAj7VTm5RDQuzSmu NfLlVTG9LpY1AML9eVT dtG3axJbynzyqlX2zIg c+TYs8g4ddrLOoHZ5yc ZO4JD36EH24rCOri0Q3 vEB2B8GsLUWwnhxmpxl njSA1WQWdSMPvpO04Ad 2hvCecYk1kHAKsTLB9Z PTeyNLcL5OzgE0xGeSc GSRyTBPoA2GcxCFfPVm mF520ZSdxUsB2BEOyex UtR6SvGPDvwVatXnI6x 0U3Uz2HLD34CL24CA08 vVBjm6J6ePR5B1BlKFN vnxpqgsjshJS3UBAzAH LjxI96Su8vbLzzBd7kM AHpEED8BIUfwKOhU9Cy aW1sRmIeKZHbGRSgH4H hdCSbPWynM003KBqlRn Q2LRNwwnSjW5PeRGCir OsvKzP3w1X1Ay8SMd81 AL22BX85mQOwg0U4oBC 4Y7MrKKHilpbahzbziW T5JQEyXUEqnB15Rc7vw KarSj2aPFMdCBG1OXMn nWDzU7MxgH7vHiPzMXC kUTUtF1CboEVpILwxX1 44GHboYrI7RRVsxrTnY 7LbZABikRofCaT3s9L8 Cz4YXInybiv4W7IlXar vdHI+JP18YOUpHF78yC SwkHAns1llkGn1TdRuP OXrOTD7uIcnTMjjk8Ms KIMfN94e (more content not included)... Normal [facility] Consultation Noteon 07-07-19 Consultation Note Patient: [...] Problems Acute hepatitis C / SNOMED CT 720432071 / Confirmed Anxiety / SNOMED CT 56675356 / Confirmed Apnea, sleep / SNOMED CT 913558754 / Confirmed Dental caries / SNOMED CT 910316465 / Confirmed PCOS (polycystic ovarian syndrome) / SNOMED CT 244813037 / Confirmed Histories Past Medical History: Active Dental caries (033283256) Family History: No family history items have [...] Patient agrees with plan of care. Normal [facility] Comment on above: Result Comment: Elec tronically Signed By: Bing PEDRAZA, Todd Spencer.franchesca\Date and Time Signed: 07/06/22 13:28 EDT DHEA SERUMon 07-04-2022 Dehydroepiandrosterone (DHEA) 220 ng/dL Normal 31-701 [facility] Comment on above: Performed By: #### D ####[facility] [address], [place] [address]AcSelwyn Sanchez DHEA-SULFATEon 06-30-2022 DHEA-Sulfate 106.0 ug/dL Normal 84.8-378.0 [facility] Comment on above: Performed By: #### Vijaya TATUM ####[facility] [address] [place] [address]Dr. Nito Sanchez FSHon 06-30-2022 FSH 6.6 mIU/mL Normal [facility] Comment on above: Result Comment: Adul t Female: Follicular phase 3.5 - 12.5 Ovulation phase 4.7 - 21.5 Luteal phase 1.7 - 7.7 Postmenopausal 25.8 - 134.8 Performed By: #### L BCFS #### [facility] [address] [place] [address] Dr. Nito Sanchez LUTEINIZING HORMONE (LH)on 0 06-30-2022 LH 18.9 mIU/mL Normal [facility] Comment on above: Result Comment: Adul t Female: Follicular phase 2.4 - 12.6 Ovulation phase 14.0 - 95.6 Luteal phase 1.0 - 11.4 Postmenopausal 7.7 - 58.5 Performed By: #### L BCLH #### [facility] [address] [place] [address] Dr. Nito Sanchez PROLACTINon 06-30-2022 Prolactin 5.3 ng/mL Normal 4.8-23.3 [facility] Comment on above: Performed By: #### P ROLAC #### [facility] [address] [place] [address] Dr. Nito Sanchez CBC AUTO DIFFon 06-29-2022 BASO # 0.1 103/ul Normal 0.0-0.1 [facility] Comment on above: Performed By: #### C BC #### [facility] [address] [place] [address] Dr. Nito Sanchez Basophils/100 WBC (Bld) 0.5 % Normal 0.2-2.0 [facility] Comment on above: Performed By: #### C BC #### [facility] [address] [place] [address] Dr. Nito Sanchez EO # 0.2 103/ul Normal 0.0-0.7 [facility] Comment on above: Performed By: #### C BC #### [facility] [address] [place] [address] Dr. Nito Sanchez Eosinophils/100 WBC (Bld) 1.6 % Normal 0.9-7.0 [facility] Comment on above: Performed By: #### C BC #### [facility] [address] [place] [address] Dr. Nito Sanchez Erythrocyte distribution width (RBC) [Ratio] 13.6 % Normal 11.0-15.0 [facility] Comment on above: Performed By: #### C BC #### [facility] [address] [place] [address] Dr. Nito Sanchez Hematocrit (Bld) [Volume fraction] 39.7 % Normal 36.0-48.0 [facility] Comment on above: Performed By: #### C BC #### [facility] [address] [place] [address] Dr. Nito Sanchez Hemoglobin (Bld) [Mass/Vol] 13.1 g/dL Normal 12.0-16.0 [facility] Comment on above: Performed By: #### C BC #### [facility] [address] [place] [address] Dr. Nito Sanchez IG # 0.05 10e3/ul Critically high 0.00-0.03 [facility] Comment on above: Performed By: #### C BC #### [facility] [address] [place] [address] Dr. Nito Sanchez IG % 0.5 % Normal 0.0-0.5 [facility] Comment on above: Performed By: #### C BC #### [facility] [address] [place] [address] Dr. Nito Sanchez LYMPH # 2.6 103/ul Normal 1.2-3.8 [facility] Comment on above: Performed By: #### C BC #### [facility] [address] [place] [address] Dr. Nito Sanchez Lymphocytes/100 WBC (Bld) 25.3 % Normal 20.5-60.0 [facility] Comment on above: Performed By: #### C BC #### [facility] [address] [place] [address] Dr. Nito Sanchez MANUAL DIFF REQ NO Normal [facility] Comment on above: Performed By: #### C BC #### [facility] [address] [place] [address] Dr. Nito Sanchez MCH (RBC) [Entitic mass] 27.1 pg Normal 26.7-34.0 [facility] Comment on above: Performed By: #### C BC #### [facility] [address] [place] [address] Dr. Nito Sanchez MCHC (RBC) [Mass/Vol] 33.0 g/dL Normal 29.9-35.2 [facility] Comment on above: Performed By: #### C BC #### [facility] [address] [place] [address] Dr. Nito Sanchez MCV (RBC) [Entitic vol] 82.2 fL Normal 81.0-99.0 [facility] Comment on above: Performed By: #### C BC #### [facility] [address] [place] [address] Dr. Nito Sanchez MONO # 0.5 103/ul Normal 0.3-0.8 [facility] Comment on above: Performed By: #### C BC #### [facility] [address] [place] [address] Dr. Nito Sanchez Monocytes/100 WBC (Bld) 5.0 % Normal 1.7-12.0 [facility] Comment on above: Performed By: #### C BC #### [facility] [address] [place] [address] Dr. Nito Sanchez NEUT # 6.9 103/ul Critically high 1.4-6.5 [facility] Comment on above: Performed By: #### C BC #### [facility] [address] [place] [address] Dr. Nito Sanchez Neutrophils/100 WBC (Bld) 67.1 % Normal 43.0-75.0 [facility] Comment on above: Performed By: #### C BC #### [facility] [address] [place] [address] Dr. Nito Sanchez Platelet mean volume (Bld) [Entitic vol] 10.0 fL Normal 9.5-13.5 [facility] Comment on above: Performed By: #### C BC #### [facility] [address] [place] [address] Dr. Nito Sanchez PLT 313 103/ul Normal 150-450 [facility] Comment on above: Performed By: #### C BC #### [facility] [address] [place] [address] Dr. Nito Sanchez RBC 4.83 106/ul Normal 4.20-5.40 [facility] Comment on above: Performed By: #### C BC #### [facility] [address] [place] [address] Dr. Nito Sanchez WBC 10.3 103/ul Normal 4.0-11.0 [facility] Comment on above: Performed By: #### C BC #### [facility] [address] [place] [address] Dr. Nito Sanchez Consent for Treatmenton 06-06 Consent for Treatment [id number] 650#1.00CD:127 Normal [facility] FREE T4on 06-29-2022 Free T4 [Mass/Vol] 1.01 ng/dL Normal 0.76-1.46 [facility] Comment on above: Performed By: #### F T4 #### [facility] [address] [place] [address] Dr. Nito Sanchez GLYCOHEMOGLOBIN A1Con 2022 ADA RECOMMENDATION SEE BELOW Normal [facility] Comment on above: Result Comment: ADA RECOMMENDED LIMIT 4.0 - 6.0 ADA THERAPEUTIC TARGET < 7.0 ACTION SUGGESTED > 7.0 Performed By: #### A 1C #### [facility] [address] [place] [address] Dr. Nito Sanchez Glucose [Mass/Vol] 108 mg/dL Normal [facility] Comment on above: Performed By: #### A 1C #### [facility] [address] [place] [address] Dr. Nito Sanchez HbA1c (Bld) [Mass fraction] 5.4 % Normal 4.5-6.2 [facility] Comment on above: Performed By: #### A 1C #### [facility] [address] [place] [address] Dr. Nito Sanchez HIPAA Forms Officeon 023 HIPAA Forms Office [id number] 602#1.00CD:127 Normal [facility] Legal Correspondence Officeo n 06-29-2022 Legal Correspondence Office [id number] 270#1.00CD:127 Normal [facility] Legal Correspondence Office [id number] 787#1.00CD:127 Normal [facility] Office/Clinic Note-Physician on 06-29-2022 Office/Clinic Note-Physician [id number] 515#1.00CD:127 Normal [facility] Orders Officeon 06-29-2022 Orders Office [id number] 642#1.00CD:127 Normal [facility] PREG QUANT HCGon 06-29-2022 HCG QUANT 1 mIU/mL Normal [facility] Comment on above: Performed By: #### T BERNICE, PREGQNT #### [facility] [address] [place] [address] Dr. Nito Sanchez HCG RANGE SEE BELOW Normal [facility] Comment on above: Result Comment: 5-50 0.2-1 WEEK 50-500 1-2 WEEKS 100-5,000 2-3 WEEKS 500-10,000 3-4 WEEKS 1,000-50,000 4-5 WEEKS 10,000-100,000 5-6 WEEKS 15,000-200,000 6-8 WEEKS 10,000-100,000 2-3 MONTHS Performed By: #### T SH, PREGQNT #### [facility] [address] [place] [address] Dr. Nito Sanchez Patient Correspondenceon Patient Correspondence [id number] 946#1.00CD:127 Normal [facility] Patient Correspondence [id number] 137#1.00CD:127 Normal [facility] Patient Correspondence [id number] 273#1.00CD:127 Normal [facility] Patient Correspondence [id number] 879#1.00CD:127 Normal [facility] Patient Correspondence [id number] 956#1.00CD:127 Normal [facility] Patient History Officeon Patient History Office [id number] 983#1.00CD:127 Normal [facility] Patient History Office [id number] 721#1.00CD:127 Normal [facility] Radiology Outside Office Mix Maker yon 06-29-2022 Radiology Outside Office Copy [id number] 142#1.00CD:127 Normal [facility] TSHon 06-29-2022 TSH 0.848 uIU/mL Normal 0.358-3.740 [facility] Comment on above: Performed By: #### T , PREGQNT #### [facility] [address] [place] [address] Dr. Nito Sanchez US PELVIS AND TRANSVAGon [...] polycystic ovarian syndrome. Electronically authenticated by: BETTYE MIYALATA Date: 2022-06-29 15:17 Normal [facility] PAP ACOG PANEL 2: 30 to 65on 06-19-2022 . . Normal [facility] Comment on above: Result Comment: Perf ormed at: WB Performed By: #### [id number] #### [facility] [address] [address] [address] Nito Sanchez Age Gdln ACOG Testing [facility] Comment on above: Performed By: #### [id number] #### [facility] [address] [address] [address] Nito Sanchez DIAGNOSIS: Comment Normal [facility] Comment on above: Result Comment: NEGA TIVE FOR INTRAEPITHELIAL LESION OR MALIGNANCY. Performed at: WB Performed By: #### [id number] #### [facility] [address] [address] [address] Nito Sanchez HPV Aptima Negative Normal Negative [facility] Comment on above: Result Comment: This nucleic acid amplification test detects fourteen high-risk HPV types (16,18,31,33,35,39,45,51,52,56,58,59,66,68) without differentiation. Performed at: =G Performed By: #### [id number] #### [facility] [address] [address] [address] Nito Sanchez HPV Genotype Reflex Comment Normal [facility] Comment on above: Result Comment: Crit eria not met, HPV Genotype not performed. Performed at: WB Performed By: #### [id number] #### [facility] [address] [address] [address] Nito Sanchez Methodology: Comment Normal [facility] Comment on above: Result Comment: This liquid based ThinPrep(R) pap test was screened with the use of an image guided system. Performed at: WB Performed By: #### [id number] #### [facility] [address] [place] [address] Dr. Nito Sanchez Note: Comment Normal [facility] Comment on above: Result Comment: The Pap smear is a screening test designed to aid in the detection of premalignant and malignant conditions of the uterine cervix. It is not a diagnostic procedure and should not be used as the sole means of detecting cervical cancer. Both false-positive and false-negative reports do occur. . Performed at: WB Performed By: #### [id number] #### [facility] [address] [address] [address] Nito Sanchez Performed by: Comment Normal [facility] Comment on above: Result Comment: Nanda Treadwell, Sales Ambassador (ASCP) Performed at: WB Performed By: #### [id number] #### [facility] [address] [place] [address] Dr. Nito Sanchez Specimen adequacy: Comment Normal [facility] Comment on above: Result Comment: Sati sfactory for evaluation. Endocervical and/or squamous metaplastic cells (endocervical component) are present. Performed at: WB Performed By: #### [id number] #### [facility] [address] [place] [address] MAXILLOFACIAL WO CONTRAST on 05-11-2022 Recent extraction of the right mandibular and maxillary second molar teeth with presence of air in the respective tooth sockets. No evidence of edema in the sublingual space or the buccal space Probable periapical abscess involving the right maxillary premolar tooth adjacent to the first molar tooth. [facility] RIS CONSOLIDATED EXAM: CT MAXILLOFACIAL WO CONTRAST HISTORY: [...] visualized intracranial contents show no acute process. [facility] Phil Romero MD - 05/11/2022 EXAM: CT MAXILLOFACIAL WO [...] tooth adjacent to the first molar tooth. [employer] Work Phone: Radiology Study observation (narrative) [employer] Work Phone: CT MAXILLOFACIAL WO CONTRAST Ordered By: Phil Mary on 05-11-2022 [employer] Work Phone: Urine Preg (Lab)on 3 Beta HCG ( test) Ql (U) Negative NEGATIVE [employer] HCG, Quantitative, on 03-29-2022 hCG Quant NINF [employer] Comment on above: Non-preg premeno <=5 Postmeno <=8 Male <=3 If HCG results do not concur with clinical observations, additional testing to confirm results is recommended. [employer] COVID-19, Rapidon 07-22-2021 SARS-CoV-2 (COVID-19) RNA KALPESH+probe Ql (Unsp spec) Not detected Not Detected [facility] Comment on above: Rapid NAAT: The [...] management decisions. Fact sheet for Healthcare Providers: https://www.fda.gov/media/637141/download Fact sheet for Patients: https://www.fda.gov/media/760245/download Methodology: Isothermal Nucleic Acid Amplification Specimen Description .NASOPHARYNGEAL SWAB [facility] Strep Screen Group A Throato n 07-22-2021 S. pyogenes Ag Ql (Throat) Negative NEGATIVE [facility] Comment on above: Rapid Strep A negati ve. A negative Rapid Group A Strep Screen result does not rule out the possibility of Group A Streptococci in the specimen. A Group A Strep DNA test is available upon request. Source .THROAT SWAB [facility] MR LUMBAR SPINE WITHOUT CONT [facility] 06-17-2021 MR LUMBAR SPINE WITHOUT CONTRAST EXAMINATION: [...] stenosis. 2. No fracture or spondylolisthesis. [facility] Workstation ID: [id number] Dictated by: JONATHAN LINARES on TueJun 18, 2021 11:51:00 AM EDT Transcribed by: ZULMA CARDENAS on TueJun 18, 2021 11:58:13 AM EDT Finalized by: JONATHAN LINARES on TueJun 18, 2021 12:35:45 PM EDT Normal [facility] Comment on above: Order Comment: Injur y/Trauma or Illness?:Illness/Other How long have you had these symptoms (acute/chronic)?:Chronic Reason for exam?:LBP AND bilat hip pain x years, nki Type of Exam?:Subsequent/Follow-up Additional signs and symptoms?:. CBC panel Auto (Bld)on 04-16 Erythrocyte distribution width (RBC) [Entitic vol] 14.0 % 11.6 - 14.8 % [facility] Hematocrit (Bld) [Volume fraction] 38.6 % 36.0 - 46.0 % [facility] Hemoglobin (Bld) [Mass/Vol] 12.1 g/dL 12.0 - 16.0 g/dL [facility] Interpretation and review of laboratory results Abnormal [facility] MCH (RBC) [Entitic mass] 25.4 pg Low 26. 0 - 34.0 pg [facility] MCHC (RBC) [Mass/Vol] 31.3 g/dL 31.0 - 37.0 g/dL [facility] MCV (RBC) [Entitic vol] 81.1 fL 80.0 - 100.0 fL [facility] Platelet mean volume (Bld) [Entitic vol] 10.0 fL 9.4 - 12.4 fL [facility] Platelets (Bld) [#/Vol] 379 10*3/uL [facility] RBC (Bld) [#/Vol] 4.76 10*6/uL [facility] WBC (Bld) [#/Vol] 9.85 10*3/uL [facility] Comprehensive metabolic 2000 panelon 04-16-2021 Albumin [Mass/Vol] 3.7 g/dL 3.2 - 5.2 g/dL [facility] ALP [Catalytic activity/Vol] 95 U/L 40 - 140 U/L [facility] ALT [Catalytic activity/Vol] 36 U/L 14 - 65 U/L [facility] Anion gap [Moles/Vol] 11 mmol/L 10 - 2 0 mmol/L [facility] AST [Catalytic activity/Vol] 22 U/L 0 - 45 U/L [facility] Bilirubin [Mass/Vol] 0.3 mg/dL 0.0 - 1 .3 mg/dL [facility] Calcium [Mass/Vol] 9.3 mg/dL 8.4 - 10. 2 mg/dL [facility] Chloride [Moles/Vol] 105 mmol/L 98 - 10 8 mmol/L [facility] Creatinine [Mass/Vol] 0.68 mg/dL 0.40 - 1.10 [facility] GFR/1.73 sq M.predicted CKD-EPI (S/P/Bld) [Vol rate/Area] 117 >=60 mL/min/1.73 m2 [facility] Glucose [Mass/Vol] 76 mg/dL 65 - 99 mg/dL [facility] HCO3 [Moles/Vol] 26 mmol/L 21 - 32 mmol/L [facility] Interpretation and review of laboratory results Normal [facility] Potassium [Moles/Vol] 4.2 mmol/L 3.5 - 5.1 mmol/L [facility] Protein [Mass/Vol] 7.5 g/dL 6.0 - 8.0 g/dL [facility] Sodium [Moles/Vol] 138 mmol/L 135 - 145 mmol/L [facility] Urea nitrogen [Mass/Vol] 13 mg/dL 8 - 25 mg/dL [facility] Urea nitrogen/Creatinine [Mass ratio] 19.1 mg/mg [facility] The eGFR should be used for monitoring renal function only and not for medication dosing. [facility] Lipid 1996 panelon Cholesterol [Mass/Vol] 195 mg/dL 100 - 199 mg/dL [facility] Comment on above: National Cholesterol Education Program Guidelines: Cholesterol Desirable: <200 mg/dL Borderline High: 200-239 mg/dL High: greater than or equal to 240 mg/dL Cholesterol in HDL [Mass/Vol] 56 mg/dL 40 - 59 [facility] Comment on above: National Cholesterol Education Program Guidelines: HDL Cholesterol Low: <40 mg/dL Near Optimal: 40-59 mg/dL High: greater than or equal to 60 mg/dL Cholesterol in LDL [Mass/Vol] 109 mg/dL 10 - 130 mg/dL [facility] Comment on above: National Cholesterol Education Program Guidelines: LDL Cholesterol Optimal: <100 mg/dL Near Optimal/above Optimal: 100-129 mg/dL Borderline High: 130-159 mg/dL High: 160-189 mg/dL Very High: greater than or equal to 190 mg/dL Cholesterol non HDL [Mass/Vol] 139 mg/dL [facility] Comment on above: National Cholesterol Education Program Guidelines: NON HDL Cholesterol Desirable: <130 mg/dL Borderline High: 130-159 mg/dL High: 160-189 mg/dL Very High: > or = 190 mg/dL Cholesterol.total/Cholest elton in HDL [Mass ratio] 3.5 {ratio} ratio [facility] Comment on above: Female Cholesterol/H DL Ratio: Average risk: 4.4 1/2 average risk: 3.3 2 x average risk: 7.1 Interpretation and review of laboratory results Abnormal [facility] Triglyceride [Mass/Vol] 151 mg/dL High 30 - 150 mg/dL [facility] Comment on above: National Cholesterol Education Program Guidelines: Triglyceride Normal: <150 mg/dL Borderline High: 150-199 mg/dL High: 200-499 mg/dL Very High: greater than or equal to 500 mg/dL No Panel Informationon 04-16 [facility] TSH DL <= 0.005 mIU/L Qnon 0 04-16-2021 Interpretation and review of laboratory results Normal [facility] TSH Qn 1.04 m[IU]/L [facility] Basic Metabolic Panel w/ Ref ray to MGon 03-23-2021 Anion gap [Moles/Vol] 13 mmol/L 9 - 17 mmol/L [facility] Calcium [Mass/Vol] 8.8 mg/dL 8.6 - 10. 4 mg/dL [facility] Chloride [Moles/Vol] 104 mmol/L 98 - 10 7 mmol/L [facility] CO2 [Moles/Vol] 21 mmol/L 20 - 31 mmol/L [facility] Creatinine [Mass/Vol] 0.65 mg/dL 0.50 - 0.90 mg/dL [facility] GFR >60 >60 mL/min [facility] GFR Non- >60 >60 mL/min [facility] GFR/1.73 sq M.predicted MDRD (S/P/Bld) [Vol rate/Area] [facility] Comment on above: Average GFR for 30-3 9 years old: 107 mL/min/1.73sq m Chronic Kidney Disease: <60 mL/min/1.73sq m Kidney failure: <15 mL/min/1.73sq m eGFR calculated using average adult body mass. Additional eGFR calculator available at: http://www.Sellar[employer]/multiple_crcl_2012.htm GFR/1.73 sq M.predicted MDRD (S/P/Bld) [Vol rate/Area] NOT REPORTED [facility] Glucose [Mass/Vol] 104 mg/dL High 70 - 99 mg/dL [facility] Interpretation and review of laboratory results Abnormal [facility] Potassium [Moles/Vol] 3.7 mmol/L 3.7 - 5.3 mmol/L [facility] Sodium [Moles/Vol] 138 mmol/L 135 - 144 mmol/L [facility] Urea nitrogen (BldV) [Mass/Vol] 15 mg/dL 6 - 20 mg/dL [facility] Urea nitrogen/Creatinine (Bld) [Mass ratio] 23 High [facility] CBC Auto Differentialon 03-07 Absolute Eos # 0.10 [facility] Absolute Immature Granulocyte NOT REPORTED [facility] Absolute Lymph # 0.60 Low [facility] [place] # 0.50 [facility] lth Basophils (Bld) [#/Vol] 0.00 10*3/uL [facility] Basophils/100 WBC (Bld) 0 % 0 - 2 % [facility] Differential Type YES [facility] ealth Eosinophils/100 WBC (Bld) 2 % 0 - 5 % [facility] Hematocrit (Bld) [Volume fraction] 34.6 % Low 36 - 46 % [facility] Hemoglobin.gastrointestin al spec 1 Ql (Stl) 11.7 g/dL Low 12.0 - 16.0 g/dL [facility] Immature Granulocytes NOT REPORTED 0 % [facility] Interpretation and review of laboratory results Abnormal [facility] Lymphocytes/100 WBC (Bld) 13 % Low 15 - 40 % [facility] MCH (RBC) [Entitic mass] 26.4 pg 26 - [address] [facility] MCHC (RBC) [Mass/Vol] 33.8 g/dL 31 - 3 7 g/dL [facility] MCV (RBC) [Entitic vol] 78.2 fL Low 80 - [address] [facility] Monocytes/100 WBC (Bld) 10 % High 4 - 8 % [facility] NRBC Automated NOT REPORTED per [address] [facility] Platelet distribution width (Bld) [Ratio] 14.4 % 12.1 - 15.2 % [facility] Platelet Estimate NOT REPORTED [facility] Platelet mean volume (Bld) [Entitic vol] NOT REPORTED 6.0 - 12.[address] [facility] Platelets (Bld) [#/Vol] 259 10*3/uL [facility] RBC (Bld) [#/Vol] 4.43 10*6/uL 4.0 - 5.2 m/uL [facility] RBC (Bld) [#/Vol] NOT REPORTED [facility] Segmented neutrophils/100 WBC (Bld) 75 % 47 - 75 % [facility] Segs Absolute 3.60 [facility] h WBC (Bld) [#/Vol] 4.8 10*3/uL [facility] WBC (Bld) [#/Vol] NOT REPORTED [facility] COVID-19, Rapidon 03-23-2021 Interpretation and review of laboratory results Abnormal [facility] SARS-CoV-2 (COVID-19) RNA KALPESH+probe Ql (Unsp spec) Detected Abnormal Not Detected [employer] Comment on above: Rapid NAAT: The specimen [...] this assay. Fact sheet for Healthcare Providers: https://www.fda.gov/media/516283/download Fact sheet for Patients: https://www.fda.gov/media/278248/download Methodology: Isothermal Nucleic Acid Amplification Results reported to the appropriate Health Department Specimen Description .NASOPHARYNGEAL SWAB [facility] No Panel Informationon 03-23 Direct Exam Negative [facility] [employer] Rapid influenza A/B antigens on 03-23-2021 Special Requests NOT REPORTED [facility] [employer] Specimen Description .NASOPHARYNGEAL SWAB [facility] COVID-19, RapidOrdered By: Shayy Springer on 12-27-2020 SARS-CoV-2 (COVID-19) RNA KALPESH+probe Ql (Unsp spec) Not detected Not Detected [employer] Work Phone: Comment on above: Rapid NAAT: [...] management decisions. Fact sheet for Healthcare Providers: https://www.fda.gov/media/255951/download Fact sheet for Patients: https://www.fda.gov/media/618870/download Methodology: Isothermal Nucleic Acid Amplification Specimen Description .NASOPHARYNGEAL SWAB [employer] Phone: [employer] Phone: Strep Screen Group A ThroatO rdered By: Wayne Springer on 12-27-2020 S. pyogenes Ag IA Ql (Unsp spec) Rapid Strep A negative. A negative Rapid Group A Strep Screen result does not rule out the possibility of Group A Streptococci in the specimen. A Group A Strep DNA test is available upon request. [employer] Phone: Special Requests NOT REPORTED [facility] Phone: Specimen Description .THROAT [employer] Phone: [employer] Phone: XR SHOULDER RIGHT (MIN 2 VIE WS)Ordered By: Anuj Quinn on 11-20-2020 No acute fracture or traumatic malalignment. [employer] Phone: EXAMINATION: XR SHOULDER RIGHT (MIN 2 VIEWS), , 11/20/2020 9:30 PM EDT INDICATION: Reason for exam:->shoulder pain HISTORY: Ordering Provider Reason for Exam: Technologist Note: Additional: COMPARISON: None. TECHNIQUE: Right shoulder x-ray: 3 view(s). FINDINGS: No acute fracture. Glenohumeral and acromioclavicular joints are anatomically aligned. Joint spaces are preserved. Soft tissues are unremarkable. [employer] Phone: Ward, pn Incoming Radiant Results From [employer] - 11/20/2020 9:55 PM EDT EXAMINATION: XR [...] IMPRESSION: No acute fracture or traumatic malalignment. [employer] Work Phone: [employer] Work Phone: COVID-19, MOLECULARon 2020 SARS-CoV-2 (COVID-19) RNA KALPESH+probe Ql (Unsp spec) Not detected Normal Not Detected [facility] Comment on above: Order Comment: : COV [...] at the following links: For Healthcare Providers: https://www.fda.gov/media/400760/download For Patients: https://www.fda.gov/media/107367/download Performed By: #### L [id number] #### [facility] [address] [place] [address] Joe Rider M.D. [id number] HbA1c (Bld) [Mass fraction]O rdered By: Zelda Bautista on 07-09-2020 Interpretation and review of laboratory results Normal [facility] POC Hemoglobin [id number] By : Zelda Bautista on 07-09-2020 HbA1c (Bld) [Mass fraction] 5.2 % 4.0 - 6.0 % [facility] HbA1c (Bld) [Mass fraction]O rdered By: Lelo Gallegos on 06-09-2020 Interpretation and review of laboratory results Normal [facility] POC Hemoglobin [id number] By : Lelo Gallegos on 06-09-2020 HbA1c (Bld) [Mass fraction] 5.6 % 4.0 - 6.0 % [facility] CBC Auto Differentialon 03-08 Basophils (Bld) [#/Vol] 0.00 10*3/uL [place] Basophils/100 WBC (Bld) 0 % 0 - 2 % [place], [place] Differential Type YES [place] Eosinophils (Bld) [#/Vol] 0.10 10*3/uL [place] Eosinophils/100 WBC (Bld) 1 % 0 - 5 % [place] Erythrocyte distribution width (RBC) [Ratio] 14.2 % 12.1 - 15.2 % [place] Hematocrit (Bld) [Volume fraction] 36.1 % 36 - 46 % [place] Hemoglobin (Bld) [Mass/Vol] 12.5 g/dL 12 - 16 g/dL [place] Interpretation and review of laboratory results Abnormal [place] Lymphocytes (Bld) [#/Vol] 2.00 10*3/uL [place] Lymphocytes/100 WBC (Bld) 14 % Low 15 - 40 % [place] MCH (RBC) [Entitic mass] 30.6 pg 26 - 34 pg [place] MCHC (RBC) [Mass/Vol] 34.5 g/dL 31 - 3 7 g/dL [place] MCV (RBC) [Entitic vol] 88.5 fL 80 - 100 fL [place] Monocytes (Bld) [#/Vol] 0.80 10*3/uL [place] Monocytes/100 WBC (Bld) 6 % 4 - 8 % [place] Platelet mean volume (Bld) [Entitic vol] NOT REPORTED 6 - 12 fL [place] Platelets (Bld) [#/Vol] 300 10*3/uL [place] Platelets (Bld) [#/Vol] NOT REPORTED [place] RBC (Bld) [#/Vol] 4.08 10*6/uL 4 - 5.2 m/uL [place] RBC morphology finding Nom (Bld) NOT REPORTED [place] Segmented neutrophils/100 WBC (Bld) 79 % High 47 - 75 % [place] Segs Absolute 10.70 High [place] WBC (Bld) [#/Vol] 13.6 10*3/uL [place] WBC (Bld) [#/Vol] NOT REPORTED per 100 WBC [place] WBC Morphology NOT REPORTED [place] COVID-19, PCRon 03-26-2020 SARS-CoV-2, Rapid Not Detected Not Detected [place] Comment on above: Rapid NAAT: The [...] management decisions. Fact sheet for Healthcare Providers: https://www.fda.gov/media/000353/download Fact sheet for Patients: https://www.fda.gov/media/235960/download Methodology: Isothermal Nucleic Acid Amplification Source .THROAT [place] Comprehensive Metabolic Pane l w/ Reflex to MGon 03-26-2020 Albumin [Mass/Vol] 3.3 g/dL Low 3.5 - 5.2 g/dL [place] Albumin/Globulin [Mass ratio] NOT REPORTED [place] ALP [Catalytic activity/Vol] 57 U/L 35 - 104 U/L [place] ALT [Catalytic activity/Vol] U/L Low 5 - 33 U/L [place] Anion gap [Moles/Vol] 11 mmol/L 9 - 17 mmol/L [place] AST [Catalytic activity/Vol] 9 U/L <32 [place] Bilirubin Ql (U) 0.10 mg/dL Low 0.3 - 1.2 mg/dL [place] Bun/Cre Ratio 21 High [place] Calcium [Mass/Vol] 10.2 mg/dL 8.6 - 10. 4 mg/dL [place] Chloride [Moles/Vol] 104 mmol/L 98 - 10 7 mmol/L [place] CO2 [Moles/Vol] 21 mmol/L 20 - 31 mmol/L [place] Creatinine [Mass/Vol] 0.42 mg/dL Low 0.5 - 0.9 mg/dL [place] GFR >60 >60 mL/min [place] GFR Non- >60 >60 mL/min [place] GFR/1.73 sq M predicted among non-blacks MDRD (S/P/Bld) [Vol rate/Area] NOT REPORTED [place] GFR/1.73 sq M predicted among non-blacks MDRD (S/P/Bld) [Vol rate/Area] [place] Comment on above: Average GFR for 30-3 9 years old: 107 mL/min/1.73sq m Chronic Kidney Disease: <60 mL/min/1.73sq m Kidney failure: <15 mL/min/1.73sq m eGFR calculated using average adult body mass. Additional eGFR calculator available at: http://www.Sellar[employer]/multiple_crcl_2012.htm Glucose [Mass/Vol] 100 mg/dL High 70 - 99 mg/dL [place] Interpretation and review of laboratory results Abnormal [place] Potassium [Moles/Vol] 3.8 mmol/L 3.7 - 5.3 mmol/L [place] Protein [Mass/Vol] 6.5 g/dL 6.4 - 8.3 g/dL [place] Sodium [Moles/Vol] 136 mmol/L 135 - 144 mmol/L [place] Urea nitrogen [Mass/Vol] 9 mg/dL 6 - 20 mg/dL [place] Otheron 03-26-2020 SARS-CoV-2 [place] Immature granulocytes (Bld) [#/Vol] NOT REPORTED [place] Urinalysis, reflex to micros copicon 03-26-2020 Bilirubin Urine Negative NEGATIVE [facility] [place] Color, UA YELLOW YELLOW [place] Glucose, Ur Negative NEGATIVE [place] Ketones Ql (U) Negative NEGATIVE [place] Leukocyte esterase Test strip Ql (U) Negative NEGATIVE [place] Nitrite, Urine Negative NEGATIVE [place] pH, UA 7.0 [place] Protein (U) [Mass/Vol] Negative NEGATIVE [place] Specific [place], UA 1.010 [place] Turbidity UA CLEAR CLEAR [place] Urinalysis Comments [place] Urine Hgb Negative NEGATIVE [place] Urobilinogen, Urine Normal Normal [place] Wet Prep, Genitalon 11-20-19 Direct Exam MODERATE EPITHELIAL CELLS Abnormal [place] Direct Exam FEW TRICHOMONAS SEEN Abnormal [place] Direct Exam MODERATE BACTERIA Abnormal [place] Direct Exam Few epithelials coated with bacteria resembling clue cells. Abnormal [place] Direct Exam NO FUNGAL ELEMENTS SEEN [place] Interpretation and review of laboratory results Abnormal [place] Special Requests NOT REPORTED [place] Specimen Description .VAGINAL SPECIMEN [place] WBC (Bld) [#/Vol] FEW WBC SEEN Abnormal [place] Basic Metabolic Panelon 06-05 Anion gap [Moles/Vol] 15 mmol/L 10 - 2 0 mmol/L [facility] Calcium [Mass/Vol] 8.6 mg/dL 8.4 - 10. 2 mg/dL [facility] Chloride [Moles/Vol] 102 mmol/L 98 - 10 8 mmol/L [facility] Creatinine [Mass/Vol] 0.36 mg/dL Low 0.40 - 1.10 [facility] GFR/1.73 sq M predicted among non-blacks MDRD (S/P/Bld) [Vol rate/Area] The eGFR should be used for monitoring renal function only and not for medication dosing. [facility] GFR/1.73 sq M.predicted CKD-EPI (S/P/Bld) [Vol rate/Area] 146 >=60 mL/min/1.73 m2 [facility] Glucose [Mass/Vol] 102 mg/dL High 65 - 99 mg/dL [facility] HCO3 [Moles/Vol] 25 mmol/L 21 - 32 mmol/L [facility] Interpretation and review of laboratory results Abnormal [facility] Potassium [Moles/Vol] 4.1 mmol/L 3.5 - 5.1 mmol/L [facility] Sodium [Moles/Vol] 138 mmol/L 135 - 145 mmol/L [facility] Urea nitrogen [Mass/Vol] 5 mg/dL Low 8 - 25 mg/dL [facility] Urea nitrogen/Creatinine [Mass ratio] 13.9 mg/mg [facility] Hepatic Function Panelon Albumin [Mass/Vol] 3.3 g/dL 3.2 - 5.2 g/dL [facility] ALP [Catalytic activity/Vol] 253 U/L High 40 - 140 U/L [facility] ALT [Catalytic activity/Vol] 686 U/L High 0 - 40 U/L [facility] AST [Catalytic activity/Vol] 349 U/L High 0 - 45 U/L [facility] Bilirubin [Mass/Vol] 6.0 mg/dL High 0 - 1.3 mg/dL [facility] Bilirubin.conjugated [Mass/Vol] 5.1 mg/dL High 0 - 0.4 mg/dL [facility] Interpretation and review of laboratory results Abnormal [facility] Protein [Mass/Vol] 6.8 g/dL 6 - 8 g/dL [facility] alth Bilirubin, Directon 06-16-19 20 Bilirubin.conjugated [Mass/Vol] 5.4 mg/dL High 0 - 0.4 mg/dL [facility] Interpretation and review of laboratory results Abnormal [facility] CBCon 06-16-2019 Erythrocyte distribution width (RBC) [Entitic vol] 15.1 % High 11.6 - 14.8 % [facility] Hematocrit (Bld) [Volume fraction] 38.5 % 36 - 46 % [facility] Hemoglobin (Bld) [Mass/Vol] 12.9 g/dL 12 - 16 g/dL [facility] Interpretation and review of laboratory results Abnormal [facility] MCH (RBC) [Entitic mass] 29.1 pg 26 - 34 pg [facility] MCHC (RBC) [Mass/Vol] 33.5 g/dL 31 - 3 7 g/dL [facility] MCV (RBC) [Entitic vol] 86.9 fL 80 - 100 fL [facility] Nucleated RBC (Bld) [#/Vol] 0.00 10*3/uL [facility] Nucleated RBC/100 WBC (Bld) [Ratio] 0.0 % [facility] Platelet mean volume (Bld) [Entitic vol] 11.3 fL 9 - 15.5 fL [facility] Platelets (Bld) [#/Vol] 185 10*3/uL [facility] RBC (Bld) [#/Vol] 4.43 10*6/uL [facility] WBC (Bld) [#/Vol] 6.48 10*3/uL [facility] Comprehensive Metabolic Pane cayden 06-16-2019 Albumin [Mass/Vol] 3.3 g/dL 3.2 - 5.2 g/dL [facility] ALP [Catalytic activity/Vol] 217 U/L High 40 - 140 U/L [facility] ALT [Catalytic activity/Vol] 825 U/L High 0 - 40 U/L [facility] Anion gap [Moles/Vol] 14 mmol/L 10 - 2 0 mmol/L [facility] AST [Catalytic activity/Vol] 544 U/L High 0 - 45 U/L [facility] Bilirubin [Mass/Vol] 5.9 mg/dL High 0 - 1.3 mg/dL [facility] Calcium [Mass/Vol] 8.4 mg/dL 8.4 - 10. 2 mg/dL [facility] Chloride [Moles/Vol] 103 mmol/L 98 - 10 8 mmol/L [facility] Creatinine [Mass/Vol] 0.32 mg/dL Low 0.40 - 1.10 [facility] GFR/1.73 sq M predicted among non-blacks MDRD (S/P/Bld) [Vol rate/Area] The eGFR should be used for monitoring renal function only and not for medication dosing. [facility] GFR/1.73 sq M.predicted CKD-EPI (S/P/Bld) [Vol rate/Area] 152 >=60 mL/min/1.73 m2 [facility] Glucose [Mass/Vol] 92 mg/dL 65 - 99 mg/dL [facility] HCO3 [Moles/Vol] 26 mmol/L 21 - 32 mmol/L [facility] Interpretation and review of laboratory results Abnormal [facility] Potassium [Moles/Vol] 4.3 mmol/L 3.5 - 5.1 mmol/L [facility] Protein [Mass/Vol] 6.2 g/dL 6 - 8 g/dL [facility] alth Sodium [Moles/Vol] 139 mmol/L 135 - 145 mmol/L [facility] Urea nitrogen [Mass/Vol] 4 mg/dL Low 8 - 25 mg/dL [facility] Urea nitrogen/Creatinine [Mass ratio] 12.5 mg/mg [facility] Bilirubin, Directon 06-15-19 20 Bilirubin.conjugated [Mass/Vol] 4.7 mg/dL High 0 - 0.4 mg/dL [facility] Interpretation and review of laboratory results Abnormal [facility] CBCon 06-15-2019 Erythrocyte distribution width (RBC) [Entitic vol] 14.8 % 11.6 - 14.8 % [facility] Hematocrit (Bld) [Volume fraction] 38.5 % 36 - 46 % [facility] Hemoglobin (Bld) [Mass/Vol] 12.6 g/dL 12 - 16 g/dL [facility] MCH (RBC) [Entitic mass] 29.0 pg 26 - 34 pg [facility] MCHC (RBC) [Mass/Vol] 32.7 g/dL 31 - 3 7 g/dL [facility] MCV (RBC) [Entitic vol] 88.5 fL 80 - 100 fL [facility] Nucleated RBC (Bld) [#/Vol] 0.00 10*3/uL [facility] Nucleated RBC/100 WBC (Bld) [Ratio] 0.0 % [facility] Platelet mean volume (Bld) [Entitic vol] 11.0 fL 9 - 15.5 fL [facility] Platelets (Bld) [#/Vol] 155 10*3/uL [facility] RBC (Bld) [#/Vol] 4.35 10*6/uL [facility] WBC (Bld) [#/Vol] 5.74 10*3/uL [facility] Comprehensive Metabolic Pane cayden 06-15-2019 Albumin [Mass/Vol] 3.2 g/dL 3.2 - 5.2 g/dL [facility] ALP [Catalytic activity/Vol] 193 U/L High 40 - 140 U/L [facility] ALT [Catalytic activity/Vol] 888 U/L High 0 - 40 U/L [facility] Anion gap [Moles/Vol] 15 mmol/L 10 - 2 0 mmol/L [facility] AST [Catalytic activity/Vol] 667 U/L High 0 - 45 U/L [facility] Bilirubin [Mass/Vol] 5.2 mg/dL High 0 - 1.3 mg/dL [facility] Calcium [Mass/Vol] 8.2 mg/dL Low 8.4 - 10. 2 mg/dL [facility] Chloride [Moles/Vol] 103 mmol/L 98 - 10 8 mmol/L [facility] Creatinine [Mass/Vol] 0.36 mg/dL Low 0.40 - 1.10 [facility] GFR/1.73 sq M predicted among non-blacks MDRD (S/P/Bld) [Vol rate/Area] The eGFR should be used for monitoring renal function only and not for medication dosing. [facility] GFR/1.73 sq M.predicted CKD-EPI (S/P/Bld) [Vol rate/Area] 146 >=60 mL/min/1.73 m2 [facility] Glucose [Mass/Vol] 122 mg/dL High 65 - 99 mg/dL [facility] HCO3 [Moles/Vol] 22 mmol/L 21 - 32 mmol/L [facility] Interpretation and review of laboratory results Abnormal [facility] Potassium [Moles/Vol] 3.8 mmol/L 3.5 - 5.1 mmol/L [facility] Protein [Mass/Vol] 5.8 g/dL Low 6 - 8 g/dL [facility]th Sodium [Moles/Vol] 136 mmol/L 135 - 145 mmol/L [facility] Urea nitrogen [Mass/Vol] 5 mg/dL Low 8 - 25 mg/dL [facility] Urea nitrogen/Creatinine [Mass ratio] 13.9 mg/mg [facility] NM HEPATOBILIARY WO EJECTION FRACTIONon 06-15-2019 [...] and small bowel are not visualized. [facility] Opacified liver with no visualization of [...] regarding the presence or absence of cholecystitis. [employer] Workstation ID: [id number] [facility] Interface, Rad In Fuji Speechq - [...] regarding the presence or absence of cholecystitis. [employer] Workstation ID: [id number] [facility] APTTon 06-14-2019 aPTT Coag (Bld) [Time] 31.1 s [place] Comment on above: PTT Therapeutic Range: 61.7-88.4 Therapeutic range corresponds to plasma heparin levels of 0.3-0.7 U/mL. Acetaminophen Levelon 2019 Acetaminophen [Mass/Vol] 9.1 [facility] Interpretation and review of laboratory results Normal [facility] Bilirubin, Directon 06-14-19 20 Bilirubin.conjugated [Mass/Vol] 4.3 mg/dL High 0 - 0.4 mg/dL [facility] Interpretation and review of laboratory results Abnormal [facility] CBC WITH AUTO DIFFERENTIALon 06-14-2019 Erythrocyte distribution width (RBC) [Entitic vol] 14.5 % 11.6 - 14.8 % [facility] Hematocrit (Bld) [Volume fraction] 34.6 % Low 36 - 46 % [facility] Hemoglobin (Bld) [Mass/Vol] 11.6 g/dL Low 12 - 16 g/dL [facility] Interpretation and review of laboratory results Abnormal [facility] MCH (RBC) [Entitic mass] 29.7 pg 26 - 34 pg [facility] MCHC (RBC) [Mass/Vol] 33.5 g/dL 31 - 3 7 g/dL [facility] MCV (RBC) [Entitic vol] 88.5 fL 80 - 100 fL [facility] Nucleated RBC (Bld) [#/Vol] 0.00 10*3/uL [facility] Nucleated RBC/100 WBC (Bld) [Ratio] 0.0 % [facility] Platelet mean volume (Bld) [Entitic vol] 10.8 fL 9 - 15.5 fL [facility] Platelets (Bld) [#/Vol] 172 10*3/uL [facility] RBC (Bld) [#/Vol] 3.91 10*6/uL Low [facility] WBC (Bld) [#/Vol] 7.28 10*3/uL [facility] ealth CT ABDOMEN PELVIS W IV CONTR AST Additional Contrast? Noneon 06-14-2019 Ward, Mhpn Incoming Radiant Results From [employer] - 06/14/2019 12:27 AM EDT EXAMINATION: CT [...] liver function panel and consider ultrasound imaging. [place], [place] Pericholecystic fluid versus gallbladder wall thickening and additional periportal edema. There are no visualized stones in the gallbladder gallbladder and/or hepatic pathology are suspected. Correlate with liver function panel and consider ultrasound imaging. [place], [place] EXAMINATION: CT ABDOMEN PELVIS W IV [...] structures demonstrate no acute or concerning abnormality. [place], [place] CT COMPARISON IMPORTon 06-13 This order has been auto-finalized and does not contain a result. [facility] Comprehensive Metabolic Pane cayden 06-14-2019 Albumin [Mass/Vol] 3.0 g/dL Low 3.2 - 5.2 g/dL [facility] ALP [Catalytic activity/Vol] 183 U/L High 40 - 140 U/L [facility] ALT [Catalytic activity/Vol] 808 U/L High 0 - 40 U/L [facility] Anion gap [Moles/Vol] 16 mmol/L 10 - 2 0 mmol/L [facility] AST [Catalytic activity/Vol] 592 U/L High 0 - 45 U/L [facility] Bilirubin [Mass/Vol] 4.9 mg/dL High 0 - 1.3 mg/dL [facility] Calcium [Mass/Vol] 8.4 mg/dL 8.4 - 10. 2 mg/dL [facility] Chloride [Moles/Vol] 104 mmol/L 98 - 10 8 mmol/L [facility] Creatinine [Mass/Vol] 0.43 mg/dL 0.40 - 1.10 [facility] GFR/1.73 sq M predicted among non-blacks MDRD (S/P/Bld) [Vol rate/Area] The eGFR should be used for monitoring renal function only and not for medication dosing. [facility] GFR/1.73 sq M.predicted CKD-EPI (S/P/Bld) [Vol rate/Area] 138 >=60 mL/min/1.73 m2 [facility] Glucose [Mass/Vol] 79 mg/dL 65 - 99 mg/dL [facility] HCO3 [Moles/Vol] 21 mmol/L 21 - 32 mmol/L [facility] Interpretation and review of laboratory results Abnormal [facility] Potassium [Moles/Vol] 3.8 mmol/L 3.5 - 5.1 mmol/L [facility] Protein [Mass/Vol] 5.7 g/dL Low 6 - 8 g/dL [facility]th Sodium [Moles/Vol] 137 mmol/L 135 - 145 mmol/L [facility] Urea nitrogen [Mass/Vol] 9 mg/dL 8 - 25 mg/dL [facility] Urea nitrogen/Creatinine [Mass ratio] 20.9 mg/mg High [facility] DRUGS OF ABUSE SCREEN, URINE on 06-14-2019 Amphetamines Ql (U) None Detected None Detected [facility] Comment on above: Urine Amphetamine Cu toff: < 1000 ng/mL = None Detected Barbiturates Screen Ql (U) None Detected None Detected [facility] Comment on above: Urine Barbiturates C utoff: < 200 ng/mL = None Detected Benzodiazepines Ql (U) None Detected None Detected [facility] Comment on above: Urine Benzodiazepine Cutoff: < 300 ng/mL = None Detected Cannabinoids Screen Ql (U) None Detected None Detected [facility] Comment on above: Urine Cannabinoids C utoff: < 50 ng/mL = None Detected Cocaine Ql (U) Positive Abnormal None Detected [facility] Comment on above: Urine Cocaine Cutoff : < 300 ng/mL = None Detected Interpretation and review of laboratory results Abnormal [facility] Methadone Screen Ql (U) None Detected Non e Detected [facility] Comment on above: Urine Methadone Cuto ff: < 300 ng/mL = None Detected Opiates Screen Ql (U) None Detected None Detected [facility] Comment on above: Urine Opiates Cutoff : < 300 ng/mL = None Detected Oxycodone Ql (U) None Detected None Detected [facility] Comment on above: Urine Oxycodone Cuto ff: < 100 ng/mL = None Detected Screen results should be used for treatment purposes only. Specimen will be kept for 2 weeks, if the sample is adequate. Confirmation testing can be initiated by calling the lab within 2 weeks. [facility] HEPATITIS PANEL, ACUTEon HAV IgM Ql (S) Negative Negative [facility] HBV core IgM Ql (S) Negative Negative [facility] HBV surface Ag Ql (S) Negative Negative [facility] HCV Ab Ql (S) Positive Abnormal Negative [facility] Comment on above: A positive antibody test requires additional follow-up testing, Hepatitis C Virus Quantitation, to determine if a person is currently infected with Hepatitis C. Interpretation and review of laboratory results Abnormal [facility] Test performed using Constantin DEVIKA immunoassay system [facility] Lactic Acid, Plasmaon 2019 Interpretation and review of laboratory results Normal [facility] Lactate [Moles/Vol] 0.8 mmol/L 0.6 - 2 mmol/L [facility] MORPHOLOGYon 06-14-2019 Platelets LM Ql (Bld) Normal Normal [facility] RBC morphology finding Nom (Bld) Normal [facility] MRCPon 06-14-2019 EXAMINATION: MRCP 03/15/2024 HISTORY: [...] Axial T1-weighted images were obtained in- and [id number]. Axial diffusion-weighted imaging was also performed. FINDINGS: The liver overall appears enlarged with the right hepatic lobe measuring 22.6 cm tdffjezd-uc-myugnca r. The spleen measures 14.6 cm xeurkejt-vz-rmewmiy r and is also mildly enlarged. There [...] right kidney. Bowel pattern is nonobstructive. [facility] 1. Re-demonstration of diffuse periportal edema as well as significant circumferential gallbladder wall edema similar to that seen on prior CT study. 2. Mild hepatosplenomegaly. 3. No obvious gallstones. Negative for biliary or pancreatic ductal dilatation. Negative for choledocholithiasis . 4. Trace volume of abdominal ascites. [employer] Workstation ID: [id number] [facility] Interface, Rad In Fuji Speechq - 06/14/2019 4:45 PM EDT EXAMINATION: [...] Axial T1-weighted images were obtained in- and [id number]. Axial diffusion-weighted imaging was also performed. FINDINGS: The liver overall appears enlarged with the right hepatic lobe measuring 22.6 cm qojonnup-rg-fjupmuz r. The spleen measures 14.6 cm ybgbrygs-xs-prwpsna r and is also mildly enlarged. There [...] . 4. Trace volume of abdominal ascites. [employer] Workstation ID: [id number] [facility] Manual Differentialon 2019 Basophils (Bld) [#/Vol] 0.00 10*3/uL [facility] Basophils/100 WBC (Bld) 0.0 % [facility] Eosinophils (Bld) [#/Vol] 0.00 10*3/uL [facility] Eosinophils/100 WBC (Bld) 0.0 % [facility] Lymphocytes (Bld) [#/Vol] 3.28 10*3/uL [facility] Lymphocytes/100 WBC (Bld) 37.0 % [facility] Monocytes (Bld) [#/Vol] 0.44 10*3/uL [facility] Monocytes/100 WBC (Bld) 6.0 % [facility] Neutrophils (Bld) [#/Vol] 3.57 10*3/uL [facility] Neutrophils/100 WBC (Bld) 49.0 % [facility] Variant lymphocytes/100 WBC (Bld) 8.0 % [facility] PT/INRon 06-14-2019 INR Coag (PPP) [Relative time] 1.3 {INR} [facility] Interpretation and review of laboratory results Abnormal [facility] PT Coag (PPP) [Time] 15.5 s [facility] During the induction phase of oral anticoagulation, the INR may not reflect the anticoagulation status of the patient. Therapeutic ranges for INR's are: Most clinical situations: INR 2.0-3.0 Mechanical Prosthetic Valve: INR 2.5-3.5 Critical: INR >5.0 [facility] Protime-INRon 06-14-2019 INR Coag (PPP) [Relative time] 1.2 {INR} [place], [place] Comment on above: * THERAPY INDICATIONS * REFERENCE RANGES Pts not on anti-coagulants 1.0 - 1.5 INR Low risk pts on anti-coagulants 2.0 - 3.0 INR High risk pts on anti-coagulants 2.5 - 3.5 INR Prevention of atrial thrombo-embolism 3.0 - 4.5 INR Interpretation and review of laboratory results Abnormal [place], [place] PT Coag (PPP) [Time] 11.7 s [place] Salicylate Levelon 0 Interpretation and review of laboratory results Abnormal [facility] Salicylates [Mass/Vol] mg/dL Low 10 - 20 mg/dL [facility] URINALYSISon 06-14-2019 Bacteria Auto Ql (U) Rare Abnormal None Se en /hpf [facility] Bilirubin Ql (U) Positive Abnormal Negative [facility] th Comment on above: False positive urine bilirubins can occur in the setting of a large amount of hemoglobin and secondary to medications including anti-inflammatory agents, rifampin, and pyridium. Clarity Refractometry automated (U) Clear Clear [facility] Color (U) Erica Abnormal Colorless, Yellow [facility] Epithelial cells.squamous Auto (Urine sed) [#/Area] 4 [facility]th Glucose Auto test strip (U) [Mass/Vol] Negative Negative mg/dL [facility] Hemoglobin Auto test strip Ql (U) Negative Negative [facility] Interpretation and review of laboratory results Abnormal [facility] Ketones (U) [Mass/Vol] >=80 Abnormal Negat krystal mg/dL [facility] Leukocyte esterase Auto test strip Ql (U) Negative Negative [facility] Mucus Auto (Urine sed) [#/Area] Rare None Seen, Rare /lpf [facility] Nitrite Auto test strip Ql (U) Negative Negative [facility] pH (U) 6.0 [pH] [facility] Protein (U) [Mass/Vol] 30 Abnormal Negat krystal mg/dL [facility] Comment on above: False positive resul ts may occur in urines with large amounts of hemoglobin, pH greater than 8.0, contrast medium, or disinfectants including ammonium compounds. RBC Auto (Urine sed) [#/Area] 2 [facility] Specific gravity (U) [Rel density] 1.028 High [facility] Urobilinogen (U) [Mass/Vol] >=4.0 Abnormal <2.0 mg/dL [facility] WBC Auto (Urine sed) [#/Area] 2 [facility] Microscopic examination is performed on all urinalysis samples and only positive findings are reported. The test for blood on the chemical analytic portion of urinalysis may also be positive due to hemoglobinuria and myoglobinuria and if red blood cells are present they are quantified by microscopic examination. [facility] US ABDOMEN LIMITED STUDYon 0 06-14-2019 [...] liver likely small hemangioma. Workstation ID: [id number] [employer] EXAMINATION: US ABDOMEN LIMITED STUDY HISTORY: RUQ [...] 10.7 cm in length. No hydronephrosis. [facility] 1. Contracted gallbladder limits evaluation. No cholelithiasis identified. Nonspecific edematous gallbladder wall thickening and reported positive sonographic Short's sign, cannot exclude acalculus cholecystitis. No biliary ductal dilatation. 2. 1.3 cm echogenic lesion left lobe of the liver likely small hemangioma. Workstation ID: [id number] [facility] Amylaseon 06-13-2019 Amylase [Catalytic activity/Vol] 22 U/L Low 28 - 100 U/L [place] CBC Auto Differentialon Basophils (Bld) [#/Vol] 0.00 10*3/uL [place] Basophils/100 WBC (Bld) 1 % 0 - 2 % [place] Differential Type YES [place] Eosinophils (Bld) [#/Vol] 0.00 10*3/uL [place] Eosinophils/100 WBC (Bld) 0 % 0 - 5 % [place] Erythrocyte distribution width (RBC) [Ratio] 14.9 % 12.1 - 15.2 % [place] Hematocrit (Bld) [Volume fraction] 43.3 % 36 - 46 % [place] Hemoglobin (Bld) [Mass/Vol] 14.3 g/dL 12 - 16 g/dL [place] Lymphocytes (Bld) [#/Vol] 2.50 10*3/uL [place] Lymphocytes/100 WBC (Bld) 30 % 15 - 40 % [place] MCH (RBC) [Entitic mass] 28.8 pg 26 - 34 pg [place] MCHC (RBC) [Mass/Vol] 33.1 g/dL 31 - 3 7 g/dL [place] MCV (RBC) [Entitic vol] 87.2 fL 80 - 100 fL [place] Monocytes (Bld) [#/Vol] 0.70 10*3/uL [place] Monocytes/100 WBC (Bld) 8 % 4 - 8 % [place] Platelet mean volume (Bld) [Entitic vol] NOT REPORTED 6 - 12 fL [place] Platelets (Bld) [#/Vol] 203 10*3/uL [place] Platelets (Bld) [#/Vol] NOT REPORTED [place] RBC (Bld) [#/Vol] 4.97 10*6/uL 4 - 5.2 m/uL [place] RBC morphology finding Nom (Bld) NOT REPORTED [place] Segmented neutrophils/100 WBC (Bld) 61 % 47 - 75 % [place] Segs Absolute 5.20 [place] WBC (Bld) [#/Vol] 8.4 10*3/uL [place] WBC (Bld) [#/Vol] NOT REPORTED per 100 WBC [place] WBC Morphology NOT REPORTED [place] Comprehensive Metabolic Pane l w/ Reflex to MGon 06-13-2019 Albumin [Mass/Vol] 4.1 g/dL 3.5 - 5.2 g/dL [place] Albumin/Globulin [Mass ratio] NOT REPORTED [place] ALP [Catalytic activity/Vol] 255 U/L High 35 - 104 U/L [place] ALT [Catalytic activity/Vol] 1116 U/L High 5 - 33 U/L [place] Anion gap [Moles/Vol] 17 mmol/L 9 - 17 mmol/L [place] AST [Catalytic activity/Vol] 665 U/L High <32 [place] Bilirubin Ql (U) 6.52 mg/dL High 0.3 - 1.2 mg/dL [place] Bun/Cre Ratio 17 [place] Calcium [Mass/Vol] 10.1 mg/dL 8.6 - 10. 4 mg/dL [place] Chloride [Moles/Vol] 95 mmol/L Low 98 - 10 7 mmol/L [place] CO2 [Moles/Vol] 24 mmol/L 20 - 31 mmol/L [place] Creatinine [Mass/Vol] 0.82 mg/dL 0.5 - 0.9 mg/dL [place] GFR >60 >60 mL/min [place] GFR Non- >60 >60 mL/min [place] GFR/1.73 sq M predicted among non-blacks MDRD (S/P/Bld) [Vol rate/Area] [place], [place] Comment on above: Average GFR for 20-2 9 years old: 116 mL/min/1.73sq m Chronic Kidney Disease: <60 mL/min/1.73sq m Kidney failure: <15 mL/min/1.73sq m eGFR calculated using average adult body mass. Additional eGFR calculator available at: http://www.Sellaround/multiple_crcl_2012.htm GFR/1.73 sq M predicted among non-blacks MDRD (S/P/Bld) [Vol rate/Area] NOT REPORTED [place] Glucose [Mass/Vol] 134 mg/dL High 70 - 99 mg/dL [place] Interpretation and review of laboratory results Abnormal [place] Potassium [Moles/Vol] 3.7 mmol/L 3.7 - 5.3 mmol/L [place] Protein [Mass/Vol] 8.1 g/dL 6.4 - 8.3 g/dL [place] Sodium [Moles/Vol] 136 mmol/L 135 - 144 mmol/L [place] Urea nitrogen [Mass/Vol] 14 mg/dL 6 - 20 mg/dL [place] Drug screen multi urineon Amphetamine Screen, Ur Negative NEGATIVE [place] Comment on above: (Positive cutoff 500 ng/mL) Barbiturate Screen, Ur Negative NEGATIVE [place] Comment on above: (Positive cutoff 200 ng/mL) Benzodiazepine Screen, Urine Negative NEGATIVE [place] Comment on above: (Positive cutoff 150 ng/mL) Buprenorphine Urine NOT REPORTED NEGATIVE [place] Cannabinoid Scrn, Ur Negative NEGATIVE [place] Comment on above: (Positive cutoff 50 ng/mL) Cocaine Metabolite, Urine Positive Abnormal NEGATIVE [place] Comment on above: (Positive cutoff 150 ng/mL) Interpretation and review of laboratory results Abnormal [place] MDMA, Urine NOT REPORTED NEGATIVE [place] Methadone Screen, Urine Negative NEGATIVE [place] Comment on above: (Positive cutoff 200 ng/mL) Methamphetamine, Urine Negative NEGATIVE [place] Comment on above: (Positive cutoff 500 ng/mL) Opiates, Urine Positive Abnormal NEGATIVE [place] Comment on above: (Positive cutoff 100 ng/mL) Oxycodone Screen, Ur Negative NEGATIVE [place] Comment on above: (Positive cutoff 100 ng/mL) Phencyclidine, Urine Negative NEGATIVE [place] Comment on above: (Positive cutoff 25 ng/mL) Propoxyphene, Urine Negative NEGATIVE [place] Comment on above: (Positive cutoff 300 ng/mL) Test Information NOT REPORTED [place] Tricyclic Antidepressants, Urine Negative NEGATIVE [place] Comment on above: (Positive cutoff 300 ng/mL) Drug screen results are to be used for medical purposes only. All positive results are unconfirmed. Testing for employment or legal uses should be sent to a reference laboratory for confirmation. Lactic Acidon 06-13-2019 Lactate [Moles/Vol] 1.2 mmol/L 0.5 - 2. 2 mmol/L [place] Lipaseon 06-13-2019 Lipase [Catalytic activity/Vol] 8 U/L Low 13 - 60 U/L [place] Microscopic Urinalysison Amorphous, UA NOT REPORTED None [place] Bacteria, UA 2+ Abnormal None [place] Casts UA 5 TO 10 HYALINE /LPF [place] Casts UA 2 TO 5 WAXY /LPF [place] Crystals, UA NOT REPORTED None /HPF [place] Epithelial Cells UA LOADED /HPF [place] Interpretation and review of laboratory results Abnormal [place] Mucus, UA 4+ Abnormal None [place] Other Observations UA NOT REPORTED NOT REQ. [place] RBC (U) [#/Vol] 5 TO 10 [place] Renal Epithelial, UA NOT REPORTED 0 /HPF [place] Trichomonas, UA NOT REPORTED None [place] WBC, UA 10 TO 20 0 /HPF [place] Yeast, UA NOT REPORTED None [place] - [place] Otheron 06-13-2019 Interpretation and review of laboratory results Abnormal [place] Immature granulocytes (Bld) [#/Vol] NOT REPORTED 0 % [place] , Urineon 0 Beta HCG ( test) Ql (U) Negative NEGATIVE [place] Urinalysis, reflex to micros copicon 06-13-2019 Bilirubin Urine 3+ Abnormal [facility]GATIVE [facility] [place] Color, UA BROWN Abnormal YELLOW [place] Glucose, Ur Negative NEGATIVE [place] Interpretation and review of laboratory results Abnormal [place] Ketones Ql (U) MODERATE Abnormal NEGATIVE [place] Leukocyte esterase Test strip Ql (U) 1+ Abnormal NEGATIVE [place] Nitrite, Urine Positive Abnormal NEGATIVE [place] pH, UA 5.0 [place] Protein (U) [Mass/Vol] 1+ Abnormal NEGATIVE [place] Specific [place], UA 1.020 [place] Turbidity UA CLEAR CLEAR [place] Urinalysis Comments [place] Urine Hgb TRACE Abnormal NEGATIVE [place] Urobilinogen, Urine 12 mg/dL Abnormal Normal [place] Vital Signs Date Time Vital Sign Value Performing Clinician Facility 10-05-2023 21:00-0400 Body temperature 99.61 [degF] Violet Juarez MD Work Phone: [facility] 10-05-2023 21:00-0400 Diastolic blood pressure 68 mm[Hg] Violet Juarez MD Work Phone: [facility] 10-05-2023 21:00-0400 Heart rate 93 /min Violet Juarez MD Work Phone: [facility] 10-05-2023 21:00-0400 Respiratory rate 16 /min Violet Juarez MD Work Phone: [facility] 10-05-2023 21:00-0400 SaO2% (BldA) [Mass fraction] 97 % Violet Juarez MD Work Phone: [facility] 10-05-2023 21:00-0400 Systolic blood pressure 114 mm[Hg] Violet Juarez MD Work Phone: [facility] 05-13-2023 11:27-0500 Body temperature 98.6 [degF] Jonathan Martinez [facility] 05-13-2023 11:27-0500 Diastolic blood pressure 78 mm[Hg] Jonathan Martinez [facility] 05-13-2023 11:27-0500 Heart rate 83 /min Jonathan Martinez [facility] 05-13-2023 11:27-0500 Respiratory rate 18 /min Jonathan Martinez [facility] 05-13-2023 11:27-0500 SaO2% (BldA) [Mass fraction] 97 % Jonathan Martinez [facility] 05-13-2023 11:27-0500 Systolic blood pressure 113 mm[Hg] Jonathan Martinez [facility] 05-11-2023 21:49-0500 Body temperature 98.06 [degF] [facility] 05-11-2023 21:49-0500 Diastolic blood pressure 84 mm[Hg] [facility] 05-11-2023 21:49-0500 Heart rate 105 /min [facility] 05-11-2023 21:49-0500 Respiratory rate 17 /min [facility] 05-11-2023 21:49-0500 SaO2% (BldA) [Mass fraction] 97 % [facility] 05-11-2023 21:49-0500 Systolic blood pressure 130 mm[Hg] [facility] 05-10-2023 11:41-0500 Body height 160 cm Chet Lachelle STEWART Work Phone: [facility] [employer] 05-10-2023 11:41-0500 Body mass index (BMI) [Ratio] 44.29 kg/m2 Chet Berumen DO Work Phone: [facility] [employer] 05-10-2023 11:41-0500 Body temperature 97.9 [degF] [facility]umen [facility] 05-10-2023 11:41-0500 Body weight 113.4 kg Chet Berumen DO Work Phone: [facility] [employer] 05-10-2023 11:41-0500 Diastolic blood pressure 76 mm[Hg] Chet [facility]umen [facility] 05-10-2023 11:41-0500 Heart rate 94 /min Chet Berumen Work Phone: [facility] [employer] 05-10-2023 11:41-0500 Respiratory rate 18 /min Chet Lachelle STEWART Work Phone: [facility] [employer] 05-10-2023 11:41-0500 SaO2% (BldA) [Mass fraction] 96 % Chet Lachelle STEWART Work Phone: [facility] [employer] 05-10-2023 11:41-0500 Systolic blood pressure 146 mm[Hg] Chet Berumen Work Phone: [facility] [employer] 09-04-2022 11:27-0400 Body height 160 cm Erin Lacy MD Work Phone: [facility] [employer] 09-04-2022 11:27-0400 Body mass index (BMI) [Ratio] 44.99 kg/m2 Erin Lacy MD Work Phone: [facility] [employer] 09-04-2022 11:27-0400 Body temperature 98.2 [degF] Erin Lacy MD Work Phone: [facility] [employer] 09-04-2022 11:27-0400 Body weight 115.21 kg Erin Lacy MD Work Phone: [employer] 09-04-2022 11:27-0400 Diastolic blood pressure 71 mm[Hg] Erin Lacy MD Work Phone: [employer] 09-04-2022 11:27-0400 Heart rate 88 /min Erin Lacy MD Work Phone: [employer] 09-04-2022 11:27-0400 Respiratory rate 18 /min Erin Lacy MD Work Phone: [employer] 09-04-2022 11:27-0400 SaO2% (BldA) [Mass fraction] 97 % Erin Lacy MD Work Phone: [employer] 09-04-2022 11:27-0400 Systolic blood pressure 124 mm[Hg] Erin Lacy MD Work Phone: [facility] [employer] [facility] 06-29-2022 09:49-0400 Diastolic blood pressure 57 mm[Hg] Todd Bing [facility] 06-29-2022 09:49-0400 Heart rate 73 /min Todd Bing [facility] 06-29-2022 09:49-0400 Mean blood pressure 76 mm[Hg] Todd Bing [facility] 06-29-2022 09:49-0400 Respiratory rate 16 /min Todd Bing [facility] 06-29-2022 09:49-0400 Systolic blood pressure 113 mm[Hg] Todd Bing [facility] 05-19-2022 19:28-0400 Body height 160 cm Erin Lacy MD Work Phone: [employer] 05-19-2022 19:28-0400 Body mass index (BMI) [Ratio] 45.17 kg/m2 Erin Lacy MD Work Phone: [employer] 05-19-2022 19:28-0400 Body weight 115.67 kg Erin Lacy MD Work Phone: [employer] 05-19-2022 19:25-0400 Body temperature 98.29 [degF] Erin Lacy MD Work Phone: [employer] 05-19-2022 19:25-0400 Diastolic blood pressure 68 mm[Hg] Erin Lacy MD Work Phone: [employer] 05-19-2022 19:25-0400 Heart rate 78 /min Erin Lacy MD Work Phone: [employer] 05-19-2022 19:25-0400 Respiratory rate 16 /min Erin Lacy MD Work Phone: [employer] 05-19-2022 19:25-0400 SaO2% (BldA) [Mass fraction] 98 % Erin Lacy MD Work Phone: [employer] 05-19-2022 19:25-0400 Systolic blood pressure 110 mm[Hg] Erin Lacy MD Work Phone: [employer] 05-11-2022 19:17-0500 Body height 160 cm Anuj Quinn MD Work Phone: [employer] 05-11-2022 19:17-0500 Body mass index (BMI) [Ratio] 45.06 kg/m2 Anuj Quinn MD Work Phone: [employer] 05-11-2022 19:17-0500 Body temperature 98.01 [degF] Anuj Quinn MD Work Phone: [employer] 05-11-2022 19:17-0500 Body weight 115.39 kg Anuj Quinn MD Work Phone: [employer] 05-11-2022 19:17-0500 Diastolic blood pressure 91 mm[Hg] Anuj Quinn MD Work Phone: [employer] 05-11-2022 19:17-0500 Heart rate 78 /min Anuj Quinn MD Work Phone: [employer] 05-11-2022 19:17-0500 Respiratory rate 18 /min Anuj Quinn MD Work Phone: [employer] 05-11-2022 19:17-0500 SaO2% (BldA) [Mass fraction] 96 % Anuj Quinn MD Work Phone: [employer] 05-11-2022 19:17-0500 Systolic blood pressure 121 mm[Hg] Anuj Quinn MD Work Phone: [employer] 10-12-2021 18:31-0400 Heart rate 93 /min Rishabh Mancini MD Work Phone: [employer] 10-12-2021 18:31-0400 Respiratory rate 16 /min Rishabh Mancini MD Work Phone: [employer] 10-12-2021 18:31-0400 SaO2% (BldA) [Mass fraction] 97 % Rishabh Mancini MD Work Phone: [employer] 10-12-2021 18:12-0400 Body height 160 cm Rishabh Mancini MD Work Phone: [employer] 10-12-2021 18:12-0400 Body mass index (BMI) [Ratio] 47.12 kg/m2 Rishabh Mancini MD Work Phone: [employer] 10-12-2021 18:12-0400 Body temperature 99.19 [degF] Rishabh Mancini MD Work Phone: [employer] 10-12-2021 18:12-0400 Body weight 120.66 kg Rishabh Mancini MD Work Phone: [employer] 10-12-2021 18:12-0400 Diastolic blood pressure 77 mm[Hg] Rishabh Mancini MD Work Phone: [facility] [email or web address] 10-12-2021 18:12-0400 Systolic blood pressure 126 mm[Hg] Rishabh Mancini MD Work Phone: [facility] 07-22-2021 10:38-0400 Body height 160 cm Clark [facility]oser MD [facility] 07-22-2021 10:38-0400 Body mass index (BMI) [Ratio] 47.63 kg/m2 Clark Moser MD Work Phone: [facility] 07-22-2021 10:38-0400 Body temperature 97.3 [degF] Clark Moser MD Work [facility] 07-22-2021 10:38-0400 Body weight 121.97 kg Clark Moser MD Work Phone: [facility] 07-22-2021 10:38-0400 Diastolic blood pressure 88 mm[Hg] Clark Moser MD Work [facility] 07-22-2021 10:38-0400 Heart rate 104 /min Clark Moser MD [facility] 07-22-2021 10:38-0400 Respiratory rate 18 /min Clark Moser MD Work [facility] 07-22-2021 10:38-0400 SaO2% (BldA) [Mass fraction] 95 % Clark Moser MD Work [facility] 07-22-2021 10:38-0400 Systolic blood pressure 126 mm[Hg] Clark Moser MD Work Phone: [facility] 05-15-2021 09:11-0500 Body height [address] [facility] 05-14-2021 10:41-0500 Body height 160 cm Farhat Vang MD Work Phone: [facility] 05-14-2021 10:41-0500 Body mass index (BMI) [Ratio] 44.96 kg/m2 Farhat Vang MD Work Phone: [facility] 05-14-2021 10:41-0500 Body temperature 97.81 [degF] Farhat Vang MD Work Phone: [facility] 05-14-2021 10:41-0500 Body weight 115.12 kg Farhat Vang MD Work Phone: [facility] 05-14-2021 10:41-0500 Diastolic blood pressure 78 mm[Hg] Farhat Vang MD Work Phone: [facility] 05-14-2021 10:41-0500 Heart rate 98 /min Farhat Vang MD Work Phone: [facility] 05-14-2021 10:41-0500 Respiratory rate 18 /min Farhat Vang MD Work Phone: [facility] 05-14-2021 10:41-0500 SaO2% (BldA) [Mass fraction] 97 % Farhat Vang MD Work Phone: [facility] 05-14-2021 10:41-0500 Systolic blood pressure 124 mm[Hg] Farhat Vang MD Work Phone: [facility] 04-16-2021 10:15-0500 Body height 160 cm Farhat Vang MD Work Phone: [facility] 04-16-2021 10:15-0500 Body mass index (BMI) [Ratio] 44.44 kg/m2 Farhat Vang MD Work Phone: [facility] 04-16-2021 10:15-0500 Body temperature 98.01 [degF] Farhat Vang MD Work Phone: [facility] 04-16-2021 10:15-0500 Body weight 113.81 kg Farhat Vang MD Work Phone: [facility] 04-16-2021 10:15-0500 Diastolic blood pressure 78 mm[Hg] Farhat Vang MD Work Phone: [facility] 04-16-2021 10:15-0500 Heart rate 100 /min Farhat Vang MD Work Phone: [facility] 04-16-2021 10:15-0500 Respiratory rate 18 /min Farhat Vang MD Work Phone: [facility] 04-16-2021 10:15-0500 SaO2% (BldA) [Mass fraction] 96 % Farhat Vang MD Work Phone: [facility] 04-16-2021 10:15-0500 Systolic blood pressure 122 mm[Hg] Farhat Vang MD Work Phone: [facility] 03-23-2021 12:40-0500 Body height 160 cm Anuj Quinn MD Work Phone: [facility] [employer] 03-23-2021 12:40-0500 Body mass index (BMI) [Ratio] 44.46 kg/m2 Anuj Quinn MD Work Phone: [facility] [employer] 03-23-2021 12:40-0500 Body temperature 99.7 [degF] Anuj Quinn MD Work Phone: [employer] 03-23-2021 12:40-0500 Body weight 113.85 kg Anuj Quinn MD Work Phone: [employer] 03-23-2021 12:40-0500 Diastolic blood pressure 74 mm[Hg] Anuj Quinn MD Work Phone: [employer] 03-23-2021 12:40-0500 Heart rate 107 /min Anuj Quinn MD Work Phone: [employer] 03-23-2021 12:40-0500 Respiratory rate 16 /min Anuj Quinn MD Work Phone: [employer] 03-23-2021 12:40-0500 SaO2% (BldA) [Mass fraction] 96 % Anuj Quinn MD Work Phone: [employer] 03-23-2021 12:40-0500 Systolic blood pressure 131 mm[Hg] Anuj Quinn MD Work Phone: [facility] 01-15-2021 10:43-0500 Body height 160 cm Holland Ann MD Work Phone: [facility] 01-15-2021 10:43-0500 Body mass index (BMI) [Ratio] 42.55 kg/m2 Holland Ann MD Work Phone: [facility] 01-15-2021 10:43-0500 Body temperature 97.39 [degF] Holland Ann MD Work Phone: [facility] 01-15-2021 10:43-0500 Body weight 108.95 kg Holland Ann MD Work Phone: [facility] 01-15-2021 10:43-0500 Diastolic blood pressure 66 mm[Hg] Holland Ann MD Work Phone: [facility] 01-15-2021 10:43-0500 Heart rate 101 /min Holland Ann MD Work Phone: [facility] 01-15-2021 10:43-0500 SaO2% (BldA) [Mass fraction] 96 % Holland Ann MD Work Phone: [facility] 01-15-2021 10:43-0500 Systolic blood pressure 112 mm[Hg] Holland Ann MD Work Phone: [facility] 12-27-2020 18:15-0400 Body temperature 98.49 [degF] Wayne Springer MD Work Phone: [employer] Work Phone: 12-27-2020 18:15-0400 Diastolic blood pressure 77 mm[Hg] Wayne Springer MD Work Phone: [employer] Work Phone: Comment on above: Simultaneous filing. User may not have s een previous data. 12-27-2020 18:15-0400 Heart rate 98 /min Wayne Springer MD Work Phone: [employer] Work Phone: 12-27-2020 18:15-0400 Respiratory rate 20 /min Wayne Springer MD Work Phone: [employer] Work Phone: 12-27-2020 18:15-0400 SaO2% (BldA) [Mass fraction] 95 % Wayne Springer MD Work Phone: [employer] Work Phone: Comment on above: Simultaneous filing. User may not have s een previous data. 12-27-2020 18:15-0400 Systolic blood pressure 107 mm[Hg] Wayne Springer MD Work Phone: [employer] Work Phone: Comment on above: Simultaneous filing. User may not have s een previous data. 11-20-2020 21:07-0400 Body height 160 cm Anuj Quinn MD Work Phone: [employer] Work Phone: 11-20-2020 21:07-0400 Body mass index (BMI) [Ratio] 38.62 kg/m2 Anuj Quinn MD Work Phone: [employer] Work Phone: 11-20-2020 21:07-0400 Body temperature 98.6 [degF] Anuj Quinn MD Work Phone: [employer] Work Phone: 11-20-2020 21:07-0400 Body weight 98.88 kg Anuj Quinn MD Work Phone: [employer] Work Phone: 11-20-2020 21:07-0400 Diastolic blood pressure 65 mm[Hg] Anuj Quinn MD Work Phone: [employer] Work Phone: 11-20-2020 21:07-0400 Heart rate 84 /min Anuj Quinn MD Work Phone: [employer] Work Phone: 11-20-2020 21:07-0400 Respiratory rate 16 /min Anuj Quinn MD Work Phone: [employer] Work Phone: 11-20-2020 21:07-0400 SaO2% (BldA) [Mass fraction] 97 % Anuj Quinn MD Work Phone: [employer] Work Phone: 11-20-2020 21:07-0400 Systolic blood pressure 113 mm[Hg] Anuj Quinn MD Work Phone: [employer] Work Phone: 11-07-2020 16:28-0400 Body height 160 cm Nicholas Roger MD Work Phone: [employer] Work Phone: 11-07-2020 16:28-0400 Body mass index (BMI) [Ratio] 38.26 kg/m2 Nicholas Roger MD Work Phone: [employer] Work Phone: 11-07-2020 16:28-0400 Body temperature 98.8 [degF] Nicholas Roger MD Work Phone: [employer] Work Phone: 11-07-2020 16:28-0400 Body weight 97.98 kg Nicholas Roger MD Work Phone: [employer] Work Phone: 11-07-2020 16:28-0400 Diastolic blood pressure 71 mm[Hg] Nicholas Roger MD Work Phone: [employer] Work Phone: 11-07-2020 16:28-0400 Heart rate 98 /min Nicholas Roger MD Work Phone: [employer] Work Phone: 11-07-2020 16:28-0400 Respiratory rate 18 /min Nicholas Roger MD Work Phone: [employer] Work Phone: 11-07-2020 16:28-0400 SaO2% (BldA) [Mass fraction] 94 % Nicholas Roger MD Work Phone: [employer] Work Phone: 11-07-2020 16:28-0400 Systolic blood pressure 120 mm[Hg] Nicholas Roger MD Work Phone: [employer] Work Phone: 07-09-2020 10:52-0400 Body height 160 cm Zelda Bautista CNP Work Phone: [facility] 07-09-2020 10:52-0400 Body mass index (BMI) [Ratio] 41.27 kg/m2 Zelda Bautista CNP Work Phone: [facility] 07-09-2020 10:52-0400 Body weight 105.69 kg Zelda Bautista CNP Work Phone: [facility] 07-09-2020 10:52-0400 Diastolic blood pressure 70 mm[Hg] Zelda Bautista CNP Work Phone: [facility] 07-09-2020 10:52-0400 Heart rate 97 /min Zelda Bautista CNP Work Phone: [facility] 07-09-2020 10:52-0400 Systolic blood pressure 101 mm[Hg] Zelda Bautista CNP Work Phone: [facility] 06-24-2020 09:48-0400 Body mass index (BMI) [Ratio] 40.92 kg/m2 Anuj Quinn MD Work Phone: [employer] Work Phone: 06-24-2020 09:48-0400 Body temperature 97.9 [degF] Anuj Quinn MD Work Phone: [employer] Work Phone: 06-24-2020 09:48-0400 Body weight 104.78 kg Anuj Quinn MD Work Phone: [employer] Work Phone: 06-24-2020 09:48-0400 Diastolic blood pressure 64 mm[Hg] Anuj Quinn MD Work Phone: [employer] Work Phone: 06-24-2020 09:48-0400 Heart rate 120 /min Anuj Quinn MD Work Phone: [employer] Work Phone: 06-24-2020 09:48-0400 Respiratory rate 18 /min Anuj Quinn MD Work Phone: [employer] Work Phone: 06-24-2020 09:48-0400 SaO2% (BldA) [Mass fraction] 100 % Anuj Quinn MD Work Phone: [employer] Work Phone: 06-24-2020 09:48-0400 Systolic blood pressure 115 mm[Hg] Anuj Quinn MD Work Phone: [employer] Work Phone: 06-09-2020 10:44-0400 Body height 160 cm Lelo Gallegos MD Work Phone: [facility] 06-09-2020 10:44-0400 Body mass index (BMI) [Ratio] 41.27 kg/m2 Lelo Gallegos MD Work Phone: [facility] 06-09-2020 10:44-0400 Body weight 105.69 kg Lelo Gallegos MD Work Phone: [facility] 06-09-2020 10:44-0400 Diastolic blood pressure 75 mm[Hg] Lelo Gallegos MD Work Phone: [facility] 06-09-2020 10:44-0400 Heart rate 116 /min Lelo Gallegos MD Work Phone: [facility] 06-09-2020 10:44-0400 Systolic blood pressure 110 mm[Hg] Lelo Gallegos MD Work Phone: [facility] 03-26-2020 22:17-0500 Pulse (Heart Rate) 98 /min Brie Moreno [facility] [place], [place] 03-26-2020 21:43-0500 BP Diastolic 66 mm[Hg] [facility] [place] [facility] [place] 03-26-2020 21:43-0500 BP Systolic 99 mm[Hg] [facility] [place] [facility] [place] 03-26-2020 21:43-0500 Pulse Oximetry 95 % Brie Jorgensen [facility] , [place] 03-26-2020 20:50-0500 Respiratory Rate 16 /min [facility] [place] 03-26-2020 20:13-0500 BMI (Body Mass Index) 40.14 kg/m2 Brie Moreno [facility] [place] 03-26-2020 20:13-0500 Body Temperature 98.2 [degF] [facility] [place] 03-26-2020 20:13-0500 Body weight 102.[address] [facility] [place] 02-15-2020 18:22-0500 BMI (Body Mass Index) 39.75 kg/m2 Brie MossZinch [facility] [place] 02-15-2020 18:22-0500 Body Temperature 98.6 [degF] [facility] [place] 02-15-2020 18:22-0500 Body weight 101.79 kg [facility] [place] [facility] [place] 02-15-2020 18:22-0500 BP Diastolic 78 mm[Hg] [facility] [place] [facility] [place] 02-15-2020 18:22-0500 BP Systolic 127 mm[Hg] Brie Moreno [facility] [place] 02-15-2020 18:22-0500 Height 160 cm Brie Moreno [facility] [place] 02-15-2020 18:22-0500 Pulse (Heart Rate) 92 /min Brie Moreno [facility], [place] 02-15-2020 18:22-0500 Pulse Oximetry 99 % Brie Moreno [facility] , [place] 02-15-2020 18:22-0500 Respiratory Rate 20 /min [facility], [place] 11-20-2019 18:48-0400 BP Diastolic 75 mm[Hg] [facility], [place] 11-20-2019 18:48-0400 BP Systolic 128 mm[Hg] [facility], [place] 11-20-2019 18:48-0400 Pulse (Heart Rate) 83 /min [facility], [place] 11-20-2019 18:48-0400 Pulse Oximetry 97 % [facility], [place] 11-20-2019 18:48-0400 Respiratory Rate 18 /min [facility], [place] 11-20-2019 17:00-0400 BMI (Body Mass Index) 36.31 kg/m2 [facility], [place] 11-20-2019 17:00-0400 Body Temperature 98.4 [degF] [facility], [place] 11-20-2019 17:00-0400 Body weight 92.99 kg [facility], [place] 11-03-2019 11:37-0400 BMI (Body Mass Index) 34.47 kg/m2 [facility], [place] 11-03-2019 11:37-0400 Body Temperature 98.71 [degF] [facility], [place] 11-03-2019 11:37-0400 Body weight 88.27 kg [facility], [place] 11-03-2019 11:37-0400 BP Diastolic 66 mm[Hg] [facility], [place] 11-03-2019 11:37-0400 BP Systolic 117 mm[Hg] [facility], [place] 11-03-2019 11:37-0400 Height 160 cm [facility], [place] 11-03-2019 11:37-0400 Pulse (Heart Rate) 87 /min [facility], [place] 11-03-2019 11:37-0400 Pulse Oximetry 99 % Wayne [facility], [place] 11-03-2019 11:37-0400 Respiratory Rate 20 /min [facility] [place] 08-13-2019 19:42-0400 BMI (Body Mass Index) 31 kg/m2 [facility] 08-13-2019 19:42-0400 Body Temperature 98.6 [degF] [facility] 08-13-2019 19:42-0400 Body weight 79.38 kg [facility] 08-13-2019 19:42-0400 Height 160 cm [facility] 08-13-2019 19:40-0400 BP Diastolic 60 mm[Hg] [facility] 08-13-2019 19:40-0400 BP Systolic 156 mm[Hg] [facility] 08-13-2019 19:40-0400 Pulse (Heart Rate) 138 /min [facility] 08-13-2019 19:40-0400 Pulse Oximetry 98 % [facility] 08-13-2019 19:40-0400 Respiratory Rate 16 /min [facility] 06-17-2019 12:45-0400 Respiratory Rate 18 /min [facility] 06-17-2019 07:54-0400 Body Temperature 97.81 [degF] [facility] 06-17-2019 07:54-0400 BP Diastolic 66 mm[Hg] [facility] 06-17-2019 07:54-0400 BP Systolic 99 mm[Hg] [facility] 06-17-2019 07:54-0400 Pulse (Heart Rate) 82 /min [facility] 06-17-2019 07:54-0400 Pulse Oximetry 94 % [facility] 06-14-2019 08:15-0400 BMI (Body Mass Index) 32.92 kg/m2 [facility] 06-14-2019 08:15-0400 Body weight 81.65 kg [facility] 06-14-2019 08:15-0400 Height 157.5 cm [facility] 06-14-2019 04:20-0400 Pulse (Heart Rate) 83 /min [facility] [place] 06-14-2019 04:05-0400 BP Diastolic 58 mm[Hg] [facility] [place] [facility] [place] 06-14-2019 04:05-0400 BP Systolic 95 mm[Hg] [facility] [place] [facility] [place] 06-14-2019 04:05-0400 Pulse Oximetry 95 % [facility] [place] 06-14-2019 01:12-0400 Respiratory Rate 18 /min [facility] [place] 06-14-2019 00:10-0400 Body Temperature 100.51 [degF] [facility] [place] 06-13-2019 22:00-0400 BMI (Body Mass Index) 32.31 kg/m2 [facility] [place] 06-13-2019 22:00-0400 Body weight 82.74 kg [facility] [place] 06-13-2019 22:00-0400 Height 160 cm [facility] [place] 04-28-2019 19:58-0500 Body Temperature 98.8 [degF] [facility] [place] 04-28-2019 19:58-0500 BP Diastolic 70 mm[Hg] [facility] [place] [facility] [place] 04-28-2019 19:58-0500 BP Systolic 98 mm[Hg] [facility] [place] [facility] [place] 04-28-2019 19:58-0500 Pulse (Heart Rate) 119 /min [facility] [place] 04-28-2019 19:58-0500 Pulse Oximetry 100 % Roslyn Jorgensen [facility] [place] 04-28-2019 19:58-0500 Respiratory Rate 30 /min [facility] [place] 04-28-2019 19:54-0500 BMI (Body Mass Index) 30.65 kg/m2 Roslyn Jorgensen [employer] [place] 04-28-2019 19:54-0500 Body weight 78.47 kg [facility] [place] [facility] [place] 04-28-2019 19:54-0500 Height 160 cm [facility] [place] Encounters Encounter Date Encounter Type Care Provider Facility Start: 10-05-2023 End: 10-05-2023 ambulatory VIOLET Richard FRANKLINOY [facility] Start: 10-05-2023 End: 10-05-2023 Subsequent hospital visit by physician Violet Juarez MD Work Phone: [id number] Start: 10-05-2023 End: 10-05-2023 Emergency department patient visit VIOLET JUAREZ [facility] Start: 10-05-2023 End: 10-05-2023 Emergency department patient visit LINDA Vijaya [facility] Start: 09-12-2023 End: 09-12-2023 ambulatory MARK ELIANA Not Available Start: 08-16-2023 End: 08-16-2023 ambulatory MARK ELIANA Not Available Start: 07-26-2023 End: 07-26-2023 [facility] Start: 07-19-2023 End: 07-19-2023 ambulatory MARK ELIANA Not Available Start: 06-21-2023 End: 06-21-2023 ambulatory MARK ELIANA Not Available Start: 05-20-2023 End: 05-20-2023 ambulatory MARK ELIANA Not Available Start: 05-13-2023 End: 05-13-2023 Emergency department patient visit Jonathan Martinez [facility] Start: 05-13-2023 End: 05-13-2023 Emergency department patient visit Jonathan Martinez [facility] Start: 05-11-2023 End: 05-12-2023 Emergency department patient visit Reginaparker Britton Donnie Facility[facility] Start: 05-11-2023 End: 05-11-2023 Emergency department patient visit Zac Tobi Donnie [facility] Start: 05-10-2023 End: 05-10-2023 Emergency department patient visit LINDA Vijaya [facility] Start: 05-10-2023 End: 05-10-2023 Emergency department patient visit Chet Berumen DO Work Phone: [facility] Comment on above: Toothache (Primary D x); Dental decay Start: 12-27-2022 End: 12-27-2022 ambulatory MARK DUMONT [facility] Start: 11-23-2022 End: 11-23-2022 ambulatory MARK DUMONT [facility] Start: 09-04-2022 End: 09-04-2022 Emergency department patient visit Erin Lacy MD Work Phone: [facility] Comment on above: Sprain of right ankl e, unspecified ligament, initial encounter (Primary Dx) Start: 06-29-2022 End: 06-30-[address] MARK DUMONT . Facility: Start: 06-29-2022 End: 06-30-2022 ambulatory Linda Sheppard Facility[place] Start: 06-29-2022 End: 06-29-2022 Pain Management Todd Smart [facility] Start: 06-14-2022 End: 06-14-[address] MARK DUMONT . Facility: Start: 05-19-2022 End: 05-19-2022 Emergency department patient visit Erin Lacy MD Work Phone: [facility] Comment on above: Dry socket (Primary Dx) Start: 05-11-2022 End: 05-11-2022 Emergency department patient visit Anuj Quinn MD Work Phone: [facility] ED Comment on above: Masseter muscle spas m (Primary Dx); Other acute postprocedural pain Start: 03-30-[address] MARK DUMONT . Facili ty:[facility] Start: 03-29-2022 End: 03-29-2022 Subsequent hospital visit by physician [facility] Start: 10-12-2021 End: 10-12-2021 Emergency department patient visit Rishabh Mancini MD Work Phone: [facility] Comment on above: Acute bronchitis, un specified organism (Primary Dx) Start: 07-22-2021 End: 07-22-2021 Emergency department patient visit Clark Moser MD Work Phone: [facility] Comment on above: Acute pharyngitis, u nspecified etiology (Primary Dx) Start: 07-07-[address] [facility] Ambulatory Start: 06-18-2021 ambulatory FARHAT PASTOR [facility] Ambulatory Start: 06-17-2021 End: 06-18-2021 ambulatory FARHAT PASTOR [facility] Start: 05-15-2021 End: 05-19-2021 ambulatory [facility] Start: 05-15-2021 End: 05-15-2021 Nutrition therapy Farhat Vang MD Work Phone: [facility] Comment on above: Morbid obesity with body mass index (BMI) of 40.0 or higher (HCC) Start: 05-14-2021 End: 05-18-2021 ambulatory [facility] Start: 05-14-2021 End: 05-14-2021 Office outpatient visit 15 minutes Farhat Vang MD Work Phone: [facility] Comment on above: Anxiety and depressi on (Primary Dx); At risk for obstructive sleep apnea; Chronic bilateral low back pain without sciatica; Hepatitis C antibody positive in blood; Body mass index 40.0-44.9, adult (HCC); History of opioid abuse (HCC) Start: 04-16-2021 End: 04-20-2021 ambulatory [facility] Start: 04-16-2021 End: 04-16-2021 Initial preventive medicine new pt age 18-39yrs Farhat Vang MD Work Phone: [facility] Comment on above: Encounter for genera l adult medical examination with abnormal findings (Primary Dx); Anxiety and depression; History of opioid abuse (HCC); Morbid obesity with body mass index (BMI) of 40.0 or higher (HCC) Start: 04-16-2021 End: 04-16-2021 Patient encounter status Farhat Vang MD Work Phone: [facility] Start: 03-23-2021 End: 03-23-2021 Emergency department patient visit Anuj Quinn MD Work Phone: [facility] ED Comment on above: COVID-19 (Primary Dx ); Omphalitis in adult Start: 02-16-2021 End: 02-20-2021 ambulatory [facility] Start: 02-12-2021 End: 02-16-2021 ambulatory [facility] Start: 02-10-2021 End: 02-14-2021 ambulatory [facility] Start: 02-02-2021 End: 02-06-2021 ambulatory PHYSICIAN [facility] Start: 01-15-2021 Documentation procedure Jeimy goodman [facility] Start: 01-15-2021 End: 01-15-2021 ambulatory HOLLAND WHIPPLE S[facility] Ambulatory Start: 01-15-2021 End: 01-15-2021 Office outpatient new 30 minutes Holland Ann MD Work Phone: [facility] Comment on above: Hemorrhoids, unspeci fied hemorrhoid type Start: 12-29-2020 End: 01-02-2021 ambulatory PHYSICIAN [facility] Start: 12-27-2020 End: 12-27-2020 Emergency department patient visit Wayne Springer MD Work Phone: [facility] Comment on above: Viral syndrome (Prim prakash Dx) Start: 11-20-2020 End: 11-20-2020 Emergency department patient visit Anuj Quinn MD Work Phone: [facility] Comment on above: Strain of rhomboid m uscle, initial encounter; Chest wall muscle strain, initial encounter Start: 11-07-2020 End: 11-07-2020 Emergency department patient visit Nicholas Roger MD Work Phone: [facility] Comment on above: Viral URI (Primary D x) Start: 08-28-2020 End: 08-30-2020 Evaluation and management of inpatient ROSLYN HERNANDEZ GRAHAM [facility] Start: 08-25-2020 End: 08-25-2020 ambulatory PHYSICIAN [facility] Start: 07-29-2020 End: 08-02-2020 ambulatory PHYSICIAN [facility] Start: 07-22-2020 End: 07-26-2020 ambulatory LELO ADAMS GALLEGOS [facility] Start: 07-22-2020 End: 07-22-2020 Telemedicine consultation with patient Lelo Gallegos MD Work Phone: [facility] Comment on above: Diet controlled gest ational diabetes mellitus (GDM) in third trimester Start: 07-10-2020 ambulatory LELO GALLEGOS [facility] Ambulatory Start: 07-09-2020 End: 07-09-2020 ambulatory ZELDA BAUTISTA [facility] Start: 07-09-2020 End: 07-09-2020 Office outpatient visit 15 minutes Zelda Bautista CNP Work Phone: [facility]ocr[facility] Phys[facility] Comment on above: Diet controlled gest ational diabetes mellitus (GDM) in third trimester (Primary Dx) Start: 06-24-2020 End: 06-24-2020 Emergency department patient visit Anuj Quinn MD Work Phone: [facility] Comment on above: Acute frontal sinusi tis, recurrence not specified (Primary Dx) Start: 06-10-2020 End: 06-10-2020 Nutrition therapy Lelo Gallegos Work Phone: [facility] Comment on above: Diet controlled gest ational diabetes mellitus (GDM) in second trimester Start: 06-09-2020 End: 06-09-2020 Office outpatient new 30 minutes Roslyn Stevenson MD Work Phone: [facility] Phys[facility] Comment on above: Diet controlled gest ational diabetes mellitus (GDM) in second trimester Start: 05-27-2020 End: 05-31-2020 ambulatory PHYSIC[facility] Start: 05-21-2020 End: 05-25-2020 ambulatory PHYSICIAN [facility] Start: 03-26-2020 End: 03-26-2020 Emergency department patient visit Brie Moreno Work Phone: [facility] Comment on above: Atypical pneumonia ( Primary Dx) Start: 02-15-2020 End: 02-15-2020 Emergency department patient visit Brie Moreno Work Phone: [facility] Comment on above: Pain, dental (Primar y Dx); Acute gingivitis; Alveolar osteitis Start: 11-20-2019 End: 11-20-2019 Emergency department patient visit Crescenciomagui Puri Kai Work Phone: [facility] Comment on above: Bacterial vaginosis (Primary Dx); Trichimoniasis; Furuncle of left axilla Start: 11-03-2019 End: 11-03-2019 Emergency department patient visit Wayne Springer Work Phone: [facility] Comment on above: Poison arabella (Primary Dx) Start: 08-20-2019 End: 08-21-2019 Patient encounter procedure HODA MADERA [facility] Start: 08-20-2019 End: 08-20-2019 Subsequent hospital visit by physician [facility] Start: 08-13-2019 End: 08-13-2019 Emergency department patient visit Christian Redmond Juan Work Phone: [facility] Emergency Department Comment on above: Heroin abuse (HCC) ( Primary Dx) Start: 06-20-2019 End: 06-20-2019 Patient encounter procedure Alisa Palencia Work Phone: [facility] Comment on above: Hepatitis C virus in fection without hepatic coma, unspecified chronicity (Primary Dx) Start: 06-18-2019 End: 06-18-2019 Documentation procedure Taryn Torres [facility] Start: 06-18-2019 Follow-up encounter Taryn Cartagena [facility] Comment on above: Transition Of Care Start: 06-18-2019 End: 06-18-2019 Patient encounter procedure Taryn Torres [facility] Start: 06-14-2019 End: 06-17-2019 Evaluation and management of inpatient [facility] Work Phone: [facility] Comment on above: Elevated LFTs; IVDA (intravenous drug abuse) complicating (HCC) Start: 06-13-2019 End: 06-14-2019 Emergency department patient visit Brie Moreno Work Phone: [facility] Comment on above: Abdominal pain, unsp ecified abdominal location (Primary Dx); Urinary tract infection with hematuria, site unspecified; Viral hepatitis without hepatic coma, unspecified chronicity, unspecified viral hepatitis type; Polysubstance abuse (HCC); Hyperbilirubinemia Start: 04-28-2019 End: 04-28-2019 Emergency department patient visit Roslyn Keating Work Phone: [facility] Comment on above: Accidental overdose of heroin, initial encounter (HCC) (Primary Dx) Start: 12-20-2016 End: 01-02-2020 Cancer cervix - screening done Lelo Gallegos MD Work Phone: [facility] Start: 12-20-2016 End: 01-02-2020 Encounter for gynecological examination (general) (routine) without abnormal findings Jeimy Tan [employer]OWER [facility] Procedures Date Procedure Procedure Detail Performing Clinician Start: 09-04-2022 Radex ankle complete minimum 3 views Erin Lacy MD Work Phone: Start: 09-04-2022 Urine test visual color cmprsn randy Lacy MD Work Phone: Start: 05-11-2022 Ct maxillofacial w/o contrast material Anuj Quinn MD Work Phone: Start: 05-11-2022 Urine test visual color cmprsn randy Quinn MD Work Phone: Start: 03-29-2022 Gonadotropin chorion ic quantitative Mark Dustin Dumont MD Work Phone: Start: 07-22-2021 COVID-19, RAPID Clark Moser MD Work Phone: Start: 07-22-2021 Iaadiadoo streptococ cus group a Clark Moser MD Work Phone: Start: 03-23-2021 BASIC METABOLIC PANE L W/ REFLEX TO MG FOR LOW K Anuj Quinn MD Work Phone: Start: 03-23-2021 Blood count complete auto&auto difrntl wbc Anuj Quinn MD Work Phone: Start: 03-23-2021 COVID-, RAPID Parish Quinn MD Work Phone: Start: 03-23-2021 [place]oo influenza Chr daryl Quinn MD Work Phone: Start: 12-29-2020 Microscopic observat ion [Identifier] in Cervix by Cyto stain Jeimy Tan LPN Start: 12-27-2020ID-, RAPID Wayne Springer MD Work Phone: Start: 12-27-2020 Iaadiadoo streptococ cus group a Wayne Springer MD Work Phone: Start: 11-20-2020 Radex shoulder compl ete minimum 2 views Anuj Quinn Work Phone: Start: 07-09-2020 Hemoglobin glycosylated a1c Zelda Kathleen Bautista EQUIPMENT CLEANER Work Phone: Start: 06-09-2020 Hemoglobin glycosylated a1c [...] prim src wet harrison nt nfct agt Anuj Quinn Work Phone: Start: 11-01-2019 Microscopic observat ion [Identifier] in Cervix by Cyto stain Neris Laila Start: 06-17-2019 Basic metabolic 2000 panel - Serum or Plasma Raquib Arlinmed Filiuqui Work Phone: Start: 06-17-2019 Hepatic function 200 0 panel - Serum or Plasma Raquib Ahmed Faruqui Work Phone: Start: 06-16-2019 Bilirubin.direct [Mass/volume] in Serum or Plasma Indra Pruitt Work Phone: Start: 06-16-2019 Complete blood count (hemogram) panel - Blood by Automated count Indraaaron Pruitt Work Phone: Start: 06-16-2019 Comprehensive metabo lic 2000 panel - Serum or Plasma Indra Pruitt Work Phone: Start: 06-15-2019 Radionuclide hepatob iliary study Indraaaron Pruitt Work Phone: Start: 06-15-2019 Bilirubin.direct [Mass/volume] in Serum or Plasma Carli Machelle Sims Work Phone: Start: 06-15-2019 Complete blood count (hemogram) panel - Blood by Automated count Rosumlle Sims Work Phone: Start: 06-15-2019 Comprehensive metabo lic 2000 panel - Serum or Plasma Carli Machelle Foldees Work Phone: Start: 06-14-2019 Computerized tomogra phy, [...] Plasma Indra Pruitt Work Phone: Start: 06-14-2019 Complete blood count with white cell differential, automated Indra Pruitt Work Phone: Start: 06-14-2019 Complete blood count with white cell differential, manual Indra Pruitt Work Phone: Start: 06-14-2019 Comprehensive metabo lic 2000 panel - Serum or Plasma Indra Pruitt Work Phone: Start: 06-14-2019 Hepatitis panel [...] Work Phone: Start: 06-13-2019 Assay of amylase rBie Moreno Work Phone: Start: 06-13-2019 Assay of [...] of 2) Shingles Vaccine (1 of 2) [facility]- [place], [place] Start: 12-29-2025 Screening for malignant neoplasm of cervix Pap Smear [facility] Start: 10-31-2024 Screening for malignant neoplasm of cervix Pap Smear [facility] Start: 12-30-2023 Screening for malignant neoplasm of cervix [facility] Start: 11-11-2023 Respiratory Syncytial Virus (RSV) or age 60 yrs+ (1 - Risk 1-dose series) Respiratory Syncytial Virus (RSV) or age 60 yrs+ (1 - Risk 1-dose series) ALEXANDRA PANIAGUA [facility] Start: 11-10-2023 End: 11-10-2023 Patient encounter procedure 11/10/2023 10:00 AM EDT Routine [facility] [address] [facility] [address] [place] [address] [facility] Start: 10-27-2023 End: 10-27-2023 Patient encounter procedure 10/27/2023 10:00 AM EDT [facility] [address] [place] [address] [facility] Start: 10-13-2023 End: 10-13-2023 Patient encounter procedure 10/13/2023 10:00 AM EDT [facility] [address] [place] [address] Return in about 2 weeks (around 10/04/2023) for twins, dopplers, growth, transvag. [facility] Comment on above: Return in about 2 weeks (around ) for twins, dopplers, growth, transvag. Start: 10-07-2023 Tdap Vaccine during Tdap Vaccine during [facility] Start: 10-06-2023 Influenza vaccination Flu vaccine (#1) [facility] Start: 10-31-2022 Screening for malignant neoplasm of cervix [facility] Work Phone: Start: 10-05-2022 Influenza vaccination Flu vaccine (#1) [facility] Start: 04-16-2022 History and physical examination, annual for health maintenance Wellness Visit [facility] Start: 02-13-2022 Depression Remission Assessment (PHQ9) Depression Remission Assessment (PHQ9) [facility] Start: 12-29-2021 History and physical examination, annual for health maintenance Wellness Visit [facility] Start: 11-12-2021 End: 11-12-2021 Patient encounter procedure 11/12/2021 Office Visit Primary Care Farhat Vang MD [address] [id number] [facility] Start: 11-05-[address] [facility] Start: 10-05-2021 Influenza vaccination Flu vaccine (#1) [facility] Start: 06-26-2021 End: 06-26-2021 Nutrition therapy 06/26/2021 Nutrition Nutrition Farhat Vang MD [address] [facility] [address] [place] [address] [facility] Start: 05-15-2021 End: 05-15-2021 Nutrition therapy 05/15/2021 Nutrition Nutrition Angelito Harvey RD [facility] Start: 05-14-2021 End: 05-14-2021 Patient encounter procedure 05/14/2021 Office Visit Primary Care Farhat Vang MD [address] [facility] [address] [place] [address] [facility] Start: 03-17-2021 Depression screening using PHQ-9 (Patient Health Questionnaire 9) score Depression Screening (PHQ9) [facility] Start: 01-15-2021 Depression Remission Assessment (PHQ9) Depression Remission Assessment (PHQ9) [facility] Start: 01-09-2021 Hemoglobin A1c measurement A1C [facility] Start: 12-09-2020 HbA1c (Bld) [Mass fraction] A1C [facility] Start: 12-09-2020 Hemoglobin A1c measurement A1C [facility] Start: 11-05-2020 Influenza vaccination [facility] Start: 10-31-2020 History and physical examination, annual for health maintenance Wellness Visit [facility] Start: 08-28-2020 End: 08-28-2020 Admission to same day surgery center 08/28/2020 Surgery Obstetrics Roslyn Stevenson MD [address] [place] [address] [phone] SECTION [facility] Comment on above: SECTION Start: 08-28-2020 Subsequent hospital visit by physician 08/28/2020 Hospital Encounter Obstetrics Roslyn Stevenson MD [address] [place] [address] [phone] [facility] Start: 08-25-2020 End: 08-25-2020 Office Visit 08/25/2020 Office Visit Endocrinology Zelda Bautista, [employer] [address] [place] [address] [phone] [facility] Start: 07-31-2020 End: 07-31-2020 Office Visit 07/31/2020 Office Visit Endocrinology Benito Krueger, [employer]IPMENT CLE[employer] [address] [place] [address] [phone] [facility] Start: 07-29-2020 End: 07-29-2020 Patient encounter procedure 07/29/2020 Routine Obstetrics and Gynecology Regla Dias CNM [address] [place] [id number] [facility] [employer] [facility] Start: 07-22-2020 End: 07-22-2020 Telemedicine consultation with patient 07/22/2020 Telemedicine Nutrition Lelo Gallegos MD [address] [place] [address] [phone] Neris Ulloa [facility] Start: 07-17-2020 End: 07-17-2020 Patient encounter procedure 07/17/2020 Routine Obstetrics and Gynecology Yvonne Santos MD [address] [place] [phone] [facility] [employer] - [facility] Start: 07-09-2020 End: 07-09-2020 Office Visit 07/09/2020 Office Visit Endocrinology Zelda Bautista, [employer]IPMENT CLE[employer] [address] [place] [address] [phone] [facility] Start: 07-04-2020 End: 07-04-2020 Patient encounter procedure 07/04/2020 Routine Obstetrics and Gynecology Radha Pantoja MD [address] [place] [phone] [facility] [employer] [facility] Start: 06-26-2020 End: 06-26-2020 Patient encounter procedure 06/26/2020 Office Visit Endocrinology Janie Chen PA-C [facility] [place] [address] [phone] [facility] Start: 06-24-2020 End: 06-24-2020 Nutrition [facility] Start: 06-19-2020 End: 06-19-2020 Routine 06/19/2020 Routine Obstetrics and Gynecology Regla Dias, CNM [address] [place] [address] [facility] [employer] [facility] Start: 05-17-2020 Depression screening using PHQ-9 (Patient Health Questionnaire 9) score Depression Screening (PHQ9) [facility] Start: 2020 Screening for malignant neoplasm of cervix [facility] Start: 02-26-2020 End: 02-26-2020 Initial 02/26/2020 Initial Obstetrics and Gynecology Jai Huerta MD [address] [facility] [address] [place] [address] [facility] [employer] Start: 11-06-2019 Influenza vaccination [place], [place] Start: 11-06-2019 Influenza vaccination given [facility] Start: 08-06-2019 Screening for malignant neoplasm of cervix Pap Smear [facility] Start: 06-20-2019 End: 06-20-2019 Office Visit 06/20/2019 Office Visit Transition of Care Alisa Palencia, EQUIPMENT CLEANER [address] [facility] [address] [place] [address] [phone] [facility] Start: 11-05-2018 Influenza vaccination Flu vaccine (#1) [place], [place] Start: 11-05-2018 Influenza vaccination given Sequential Influenza Vaccine (#1) [facility] Start: 03-21-2015 Cervical cancer screen Cervical cancer screen [place], [place] Start: 03-21-2015 Screening for malignant neoplasm of cervix Cervical cancer screen [place], [place] Start: 04-05-2014 Screening for malignant neoplasm of cervix Pap smear [facility] Start: 2009 DTaP/Tdap/Td vaccine (1 - Tdap) DTaP/Tdap/Td vaccine (1 - Tdap) [place] Start: 2009 Hepatitis B vaccine (1 of 3 - Risk 3-dose series) Hepatitis B vaccine (1 of 3 - Risk 3-dose series) [facility] Work Phone: Start: 2008 Hepatitis C screening Hepatitis C screen [facility] Start: 2006 COVID-19 Vaccine (1) COVID-19 Vaccine (1) [facility] Start: 2005 HIV screen HIV screen [place], [place] Start: [address] HIV [address] [facility] Start: 2002 COVID-19 Vaccine (1) COVID-19 Vaccine (1) [facility] Start: 2002 Depression Monitoring Depression Monitoring [facility] Start: 2001 DTaP/Tdap/Td vaccine (1 - Tdap) DTaP/Tdap/Td vaccine (1 - Tdap) [place] Start: 2001 DTaP/Tdap/Td vaccine (5 - Tdap) DTaP/Tdap/Td vaccine (5 - Tdap) [facility] Start: 2000 Albumin DL <= 20 mg/L (U) [Mass/Vol] Urine Microalbumin [facility] Start: 2000 Diabetic foot examination Foot Exam [facility] Start: 2000 Microalbumin measurement, urine, quantitative Urine Microalbumin [facility] Start: 2000 Ophthalmic examination and evaluation Ophthalmology Exam [facility] Start: 1996 Pneumococcal 0-64 years Vaccine (1 of 1 - PPSV23) Pneumococcal 0-64 years Vaccine (1 of 1 - PPSV23) [place], [place] Start: 1996 Pneumococcal Vaccine: Ped or At-Risk (1 of 2 - PPSV23) Pneumococcal Vaccine: Ped or At-Risk (1 of 2 - PPSV23) [facility] Start: 1995 COVID-19 Vaccine (1) COVID-19 Vaccine (1) [facility] Start: 1993 History and physical examination, annual for health maintenance Wellness Visit [facility] Start: 1991 Varicella vaccine (1 of 2 - 2-dose childhood series) Varicella vaccine (1 of 2 - 2-dose childhood series) [facility] Start: 1990 COVID-19 Vaccine (#1) COVID-19 Vaccine (#1) [facility] Start: 1990 Hepatitis B vaccine (1 of 3 - 3-dose series) Hepatitis B vaccine (1 of 3 - 3-dose series) [facility] Start: 1990 Hepatitis C screening Hepatitis C screen [facility] Start: 1990 Tetanus vaccination Tetanus: Every 10yrs [facility] Anti smooth muscle antibody IgA level Anti-Smooth Muscle Antibody Lab Add-On 06/15/2019 1:50 PM EDT [facility] Antimitochondrial antibody titer Antimitochondrial Antibody Lab Add-On 06/15/2019 1:50 PM EDT [facility] End: 11-20-2019 C.trachomatis N.gonorrhoeae DNA, Urine C.trachomatis N.gonorrhoeae DNA, Urine Microbiology STAT One Time for 1 Occurrences starting 11/20/2019 until 11/20/2019 [place] Comment on above: One Time for 1 Occurrences starting 11/05 until 11/20/2019 C.trachomatis N.gonorrhoeae DNA, Urine C.trachomatis N.gonorrhoeae DNA, Urine Microbiology Stat [employer] Label print 11/20/2019 5:55 PM EDT [place] End: 03-26-2020 Covid-19 Ambulatory Covid-19 Ambulatory Lab Routine Once for 1 Occurrences starting 03/26/2020 until 03/26/2020 [place] Comment on above: Once for 1 Occurrences starting 03/26/19 21 until 03/26/2020 Covid-19 Ambulatory Covid-19 Amb ulatory Lab Routine 03/26/2020 8:44 PM [place], [place] End: 06-13-2019 Culture, Blood 1 Culture, Blood 1 Microbiology STAT One Time for 1 Occurrences starting 06/13/2019 until 06/13/2019 [place] Comment on above: One Time for 1 Occurrences starting 10/2019 until 06/13/2019 Culture, Blood 1 [facility] [place] [facility] [place], [place] End: 03-23-2021 Culture, Wound [facility] Work Phone: Comment on above: One Time for 1 Occurrences starting 03/07 until 03/23/2021 Cytomegalovirus DNA assay CMV DN A Detection and Quant, Blood Lab Routine 06/15/2019 1:50 PM EDT [facility] Kirsten-Hazel Virus P CR, Quantitative Kirsten-Hazel Virus PCR, Quantitative Lab Routine 06/15/2019 1:50 PM EDT [facility] End: 04-16-2022 Hemoglobin A1c/Hemoglobin.total in Blood Hemoglobin A1c Lab Routine Encounter for general adult medical examination with abnormal findings 1 Occurrences starting 04/16/2021 until 04/16/2022 [facility] Work Phone: Comment on above: 1 Occurrences starting 04/16/2021 until 04/16/2022 Hemoglobin A1c/Hemoglobin.total in Blood Hemoglobin A1c Lab Routine Encounter for general adult medical examination with abnormal findings 04/16/2021 10:58 AM [facility] End: 04-16-2022 Hepatitis C antibody measurement Hepatitis C Antibody Lab Routine Encounter for general adult medical examination with abnormal findings 1 Occurrences starting 04/16/2021 until 04/16/2022 [facility] Comment on above: 1 Occurrences starting 04/16/2021 until 04/16/2022 Hepatitis C antibody measurement Hepatitis C Antibody Lab Routine Encounter for general adult medical examination with abnormal findings 04/16/2021 10:58 AM [facility] MDI Treatment MDI Treatment Re spiratory Care Routine Every 6hr As Needed until discontinued starting 03/26/2020 [facility] [place] Comment on above: Every 6hr As Needed until discontinued s tarting 03/26/2020 Nonrebreather mask oxygen Nonreb reather mask oxygen Respiratory Care Routine As Needed until discontinued starting 10/05/2023 [facility] Comment on above: As Needed until discontinued starting Nuclear Ab IF (S) [Titer] KENIA La b Add-On 06/15/2019 1:50 PM EDT [facility] End: 06-24-2020 Urinalysis, reflex to microscopic Urinalysis, reflex to microscopic Lab STAT One Time for 1 Occurrences starting 06/24/2020 until 06/24/2020 [facility] Work Phone: Comment on above: One Time for 1 Occurrences starting 06/06 until 06/24/2020 End: 05-14-2022 XR Lumbar Spine Complete AP/Lat w Obls XR Lumbar Spine Complete AP/Lat w Obls Imaging Routine Chronic bilateral low back pain without sciatica 1 Occurrences starting 05/14/2021 until 05/14/2022 [facility] Work Phone: Comment on above: 1 Occurrences starting 05/14/2021 until 05/14/2022 Payers Date Payer Category Payer Medicaid [facility] [facility] MEDICAID [employer] [id number] 2021-Present [phone] [address] [place] [address] [id number]. [id number] 2021 Unknown [id number] 1.2.840.133201.1.13.239.2. 7.3.134450.315 2017 Medicaid [id number] 1.2.840.223734.1.13.385.2. 7.3.421583.315 2012 Medicaid [id number] 1.2.840.204464.1.13.239.2. 7.3.511272.315 2012 Medicaid [id number] 2008 Private Health Insurance [id number] 1990 Unknown [id number] 2.16.840.1.104871.3.579.2. 173 1990 Unknown [id number] 2.16.840.1.910069.3.579.2. 900 1990 Unknown [id number] 2.16.840.1.701304.3.579.2. 900 1990 Unknown [id number] 2.16.840.1.426781.3.579.2. 900 1990 Unknown [id number] 2.16.840.1.778385.3.579.2. 900 1990 Unknown [id number] 2.16.840.1.010339.3.579.2. 900 1990 Unknown [id number] 2.16.840.1.674220.3.579.2. 900 1990 Unknown [id number] 2.16.840.1.751425.3.579.2. 900 1990 Unknown [id number] 2.16.840.1.653015.3.579.2. 903 1990 Unknown [id number] 2.16.840.1.020622.3.579.2. 903 1990 Unknown [id number] 2.16.840.1.643921.3.579.2. 903 1990 Unknown [id number] 2.16.840.1.726187.3.579.2. 903 1990 Unknown [id number] 2.16.840.1.125453.3.579.2. 903 1990 Unknown [id number] 2.16.840.1.341016.3.579.2. 903 1990 Unknown [id number] 2.16.840.1.960022.3.579.2. 903 1990 Unknown [id number] 2.16.840.1.348538.3.579.2. 903 1990 Unknown [id number] 2.16.840.1.160183.3.579.2. 903 1990 Unknown [id number] 2.16.840.1.788314.3.579.2. 903 1990 Unknown [id number] 2.16.840.1.576942.3.579.2. 903 1990 Unknown [id number] 2.16.840.1.464467.3.579.2. 903 1990 Unknown [id number] 2.16.840.1.701169.3.579.2. 903 1990 Unknown [id number] 2.16.840.1.068647.3.579.2. 903 1990 Unknown [id number] 2.16.840.1.743493.3.579.2. 903 1990 Unknown [id number] 2.16.840.1.829267.3.579.2. 593 1990 Unknown [id number] 2.16.840.1.118586.3.579.2. 593 1990 Unknown [id number] 2.16.840.1.050799.3.579.2. 593 1990 Unknown [id number] 2.16.840.1.047138.3.579.2. 593 1990 Unknown [id number] 2.16.840.1.177447.3.579.2. 727 1990 Unknown [id number] 2.16.840.1.827746.3.579.2. 727 1990 Unknown [id number] 2.16.840.1.422974.3.579.2. 727 1990 Unknown [id number] 2.16.840.1.610037.3.579.2. 1259 1990 Unknown [id number] 2.16.840.1.876855.3.579.2. 1259 1990 Unknown [id number] 2.16.840.1.729176.3.579.2. 1259 1990 Unknown [id number] 2.16.840.1.026416.3.579.2. 1259 1990 Unknown [id number] 2.16.840.1.094968.3.579.2. 1259 1990 Unknown [id number] 2.16.840.1.125467.3.579.2. 174 1990 Unknown [id number] 2.16.840.1.515862.3.579.2. 174 1990 Unknown [id number] 2.16.840.1.821737.3.579.2. 174 1990 Unknown [id number] 2.16.840.1.702193.3.579.2. 174 1990 Unknown [id number] 2.16.840.1.149179.3.579.2. 174 1990 Unknown [id number] 2.16.840.1.443364.3.579.2. 175 1990 Unknown [id number] 2.16.840.1.579488.3.579.2. 175 1990 Unknown [id number] 2.16.840.1.528894.3.579.2. 175 1959 Unknown [id number] Social History Date Type Detail Facility Start: 04-28-2019 End: 11-03-2019 Tobacco smoking status NHIS Current every day smoker [place], [place] End: 02-15-2020 History of tobacco use Cigarette Smoker [place], [place] Start: 04-28-2019 End: 10-05-2023 Cigarettes smoked current (pack per day) - Reported [facility] Start: 04-28-2019 Alcohol intake Current drinke r of alcohol (finding) [place], [place] Start: 1990 Sex Assigned At Not on file [place] Start: 06-13-2019 End: 10-05-2023 Alcohol intake Ex-drinker (finding) [facility] Y Exposure to SARS-CoV -2 (event) Unable to assess [place], [place] Start: 05-18-2019 End: 04-16-2021 History SDOH Alcohol Frequency 3 [facility] Start: 05-18-2019 End: 07-16-2020 History SDOH Alcohol Std Drinks 5 [facility] Start: 05-04-2021 End: 05-19-2022 Exposure to SARS-CoV-2 (event) Not sure [facility] Start: 11-20-2019 End: 07-26-2023 Tobacco use and exposure Never used [facility] [place] Start: 06-09-2020 End: 07-26-2023 Tobacco smoking status NHIS Former smoker [facility] End: 02-15-2020 History of tobacco use Current smoker [facility] Start: 12-09-2019 [facility] Start: 04-16-2021 History SDOH Social Connections Get Together 4 [facility] Start: 04-16-2021 History SDOH Food Worry 1 [facility] Start: 09-04-2022 End: 10-05-2023 Sex Assigned At Female [facility] Start: 09-04-2022 History SDOH Alcohol Frequency 2 [facility] How often to you hav e a drink containing alcohol? Monthly or less [facility] Average Number of Drinks Not on file [facility] How often to you hav e a drink containing alcohol? Never [facility] Medical Equipment Procedure Code Equipment Code Equipment Origin al Text Equipment Identifier Dates Use to check BG QID Dx O24.14 . [id number] Start: 06-09-2020 Use as instructe d to check BG QID Dx O24.14 . [id number] Start: 06-09-2020 End: 06-11-2020 use to test BLOO D SUGAR FOUR TIMES DAILY [id number] Start: 06-09-2020 Goals Date Patient Goal Desired Activity /State Functional Status Date Assessment Result Facility 05-13-2023 Functional Status N/A [facility] 05-11-2023 Functional Status N/A [facility] 06-29-2022 Functional Status N/A [facility] Clinical Notes 06-09-2020 to 05-13-2023 Note [...] Follow these instructions at home: Medicines Take vsip-rxk-blmhooi and prescription medicines only as told by [...] Document Reviewed: 04/30/2021 Elsevier Patient Education 2022 [employer] Follow Up Care 05/13/2023 11:20:07 With:[employer] Address: [place] [address]- Business (1) When:05/16/2023 12:45:32 Comments:Dentistry follow-up [facility] 05-12-2023 Hospital Discharg e instructions Patient Education 05/11/2023 23:33:09 Dental Pain, Qrir-uu-Irri Dental Pain Dental pain is often a [...] Follow these instructions at home: Medicines Take mqxu-jqz-bcgssys and prescription medicines only as told by [...] damage to the area. Brushing your teeth [place] your teeth twice a day using a [...] only when you eat or drink. Take knmc-uon-lceyewo and prescription medicines only as told by your dentist. Watch your dental pain for any changes. Let your dentist know if symptoms get worse. This information is not intended to replace advice given to you by your health care provider. Make sure you discuss any questions you have with your health care provider. Document Revised: 11/26/2020 Document Reviewed: 11/26/2020 [employer] Patient Education 2022 [employer] Follow Up Care 05/11/2023 21:26:40 With:Linda Sheppard DO Address: [address] [place] [address], [address], [facility] [address] [place] [address]- When:05/14/2023 [facility] 05-11-2023 Evaluation + Plan note Extrac roxann from: Title:ED Note Author:Violet Walters PA-C ate:05/11/23 1. Pain, dental (K08.89: Oth er specified disorders of teeth and supporting structures) Ordered: amoxicillin-clavulanate, = 1 tab(s), Oral, q12hr, X 7 day(s), # 14 tab(s), Refills(s) 0, Pharmacy: [facility], 160, cm, 05/11/23 21:53:00 EST, Height/Length Dosing, 110, kg, 05/11/23 21:53:00 EST, Weight Dosing chlorhexidine topical, 0.018 gm, 15 mL, Oral, BID, 480 mL, Refill(s) 0, (swish and spit; do not swallow), [facility], 160, cm, 05/11/23 21:53:00 EST, Height/Length Dosing, 110, kg, 05/11/23 21:53:00 EST, Weight Dosing 2. Infected dental caries (K02.9: Dental caries, unspecified) Ordered: amoxicillin-clavulanate, = 1 tab(s), Oral, q12hr, X 7 day(s), # 14 tab(s), Refills(s) 0, Pharmacy: [facility], 160, cm, 05/11/23 21:53:00 EST, Height/Length Dosing, 110, kg, 05/11/23 21:53:00 EST, Weight Dosing chlorhexidine topical, 0.018 gm, 15 mL, Oral, BID, 480 mL, Refill(s) 0, (swish and spit; do not swallow), [facility], 160, cm, 05/11/23 21:53:00 EST, Height/Length Dosing, 110, kg, 05/11/23 21:53:00 EST, Weight Dosing 3. First trimester (Z34.91: Encounter for supervision of normal , unspecified, first trimester) Periapical abscess without sinus (K04.7: Periapical abscess without sinus) Orders: ketorolac, 30 mg = 1 mL, Injection, IntraMuscular, Once, Stop date 05/11/23 23:31:00 EST, STAT, Start date 05/11/23 23:31:00 EST, 05/11/23 23:31:00 EST [facility]03-05-2024 Hospital Discharge instructions* Discharge Instructions* Chet Berumen DO - 05/10/2023 11:50 AM EST Use amoxicillin as prescribed. Use Tylenol as needed for pain. Follow-up with dentist as soon as possible. * Attachments The following attachments cannot be sent through Care Everywhere. * Tooth Decay (Citizen [place]) * Tooth and Gum Pain ([place]izen [place]) [facility] History of Present illness Narrative* Angelito [...] Supplements: Reviewed Current Outpatient Medications Ordered in [facility] Medication Sig Dispense Refill baclofen (LIORESAL) 10 [...] mg by mouth daily . No current [facility]-ordered facility-administered medications on file. Lab Results Component [...] - 6-7 PM- crock pot meals- goulash; Turkmen chicken; spicy rice with chicken and beans; [...] calorie goals/day. Estimated Nutritional Needs: Calorie Needs: 3497-3858 kcals/day (MSJ x 1.3AF -500-1000 to promote gradual weight loss) Patient/Family Education: Learner: family and patient Readiness: action - ready to set action plan and implement goals Barriers to Learning: none Method: explanation and handout Response: verbalizes understanding Expected Adherence: good Education Materials Provided: Healthy Meal Planning handout ([facility]), Goal Sheet, 1,555-Onvkqvu3-Qmm Menus (NCM), 1,800-Calorie 5-Day Menus (NCM), Weight Loss Tips ([facility]) Monitoring/Evaluation: Lab results, weight, food recall, meal planning, goal achievement, physical activity, medication management. This documentation has been sent to the referring healthcare provider. Angelito Harvey RDN, Personal Office documented in this [id number] History of Present illness Narrative* Farhat Vang [...] C hepatitis virus. Patient was referred to nylon winder and the recommendation was made for a [...] improve, for Follow Up. documented in this [id number] History of Present illness Narrative* Farhat Vang [...] current medications that are prescribed by her underwriting support specialist. She has 4 children at home [...] Nutrition Services Tia was seen today for [facility]. Diagnoses and all orders for this visit: Encounter for general adult medical examination with abnormal findings - CBC; Future - Comprehensive Metabolic Panel; Future - Hemoglobin A1c; Future - Hepatitis C Antibody; Future - Lipid Panel; Future Anxiety and depression - TSH; Future Follow-up with and per psychiatrist Radha Barkley and Nigelr will be prescribed and managed by psychiatrist [...] Not difficult at all documented in this [id number] History of Present illness Narrative* Holland Ann [...] Procedure: SECTION; Surgeon: Roslyn Stevenson MD; Location: [facility] OR; Service: OBGYN SECTION, LOW TRANSVERSE [...] Friends and Family: Not on file Attends Islam Services: Not on file Active Member of [...] Report 12/29/2020 Final Value:Gynecologic Cytology Report Case: [id number] Authorizing Provider: Germania Valentino, Collected: 12/29/2020 11:09 AM EQUIPMENT CLEANER Ordering Location: [facility] DRUM CLEANER - An Received: 12/30/2020 12:03 PM [facility] First Screen: Violet Craig Rescreen: Talya Abel [...] from every slide are reviewed by a dog control officer. Specimen processing and Primary Screening performed at: [address] [address] HPV Results 12/29/2020 Final Value:This result contains [...] physician. Holland Ann MD documented in this [id number] History of Present illness Narrative* Jeimy Tan LPN - 01/15/2021 11:17 AM EST This nurse acted as a leasing assistant for a rectal exam by Dr. Ann for Tia. Tia verbalized consent to be examined, appeared comfortable and tolerated the exam well. documented in this [id number] History of Present illness Narrative* Neris Ulloa, [...] no 2) I will try yoga on [address] - yes but didn't feel comfortable doing [...] oatmeal packet. Snack celery + PB or Kittitian yogurt or green peppers. Lunch - will be light if full from snack and may have an early dinner. Dinner - pork chops, steamed vegetables. Snack - Kittitian yogurt or vegetables or watermelon. Beverages - [...] prescription for Current Outpatient Medications Ordered in [employer] Medication Sig Dispense Refill blood sugar diagnostic [...] the referring healthcare provider. documented in this [id number] Instructions* Patient Instructions* Zelda Bautista CNP - [...] to renew/prescribe testing supplies. documented in this [id number] History of Present illness Narrative* Zelda Bautista [...] visit with us. The patient did bring [employer] sugar meter with her for download today however there is not many readings on it. She states she started a new job at [employer] and does noise get breaks to check [...] 4. Patient to cont. To follow with slat basket maker helper 5. Patient will require 2 hour 75 gram OGTT 8-12 weeks after delivery. 6. Follow-up in 2 weeks. Risks and potential complications of diabetes were reviewed with the patient. Electronically signed by Zelda MARIN 07/09/2110:03 AM documented in this [id number] History of Present illness Narrative* Gallegos, Lelo Danitza, MD - 06/09/2020 11:18 AM EDT Subjective: [...] month during . While awaiting appointment with slat basket maker helper, patient provided with details of GDM diet, [...] 1 hour post prandial. 4. Referral to slat basket maker helper 5. Patient will require 2 hour 75 gram OGTT 8-12 weeks after delivery. 6. Follow-up in 2 weeks. Risks and potential complications of diabetes were reviewed with the patient. [facility] No data available for this section [facility] Diagnosis Diet controlled gestational diabetes mellitus (GDM) in second trimester [facility] Diagnosis Acute frontal sinusitis, recurrence not specified- Primary documented in this encounter [facility] Phone: evallimbjg note* Diagnosis Diet controlled gestational diabetes mellitus (GDM) in third trimester- Primary [facility] Diagnosis Diet controlled gestational diabetes mellitus (GDM) in third trimester [facility]* Diagnosis Viral URI- Primary Acute upper respiratory infections of unspecified site documented in this encounter [facility] Phone: evaluation note* Diagnosis Strain of rhomboid muscle, initial encounter Chest wall muscle strain, initial encounter documented in this encounter [facility] Phone: evalgqjfeo note* Diagnosis Viral syndrome- Primary Unspecified viral infection, in conditions classified elsewhere and of unspecified site documented in this encounter [facility] Phone: evalvexjwt note* Diagnosis Hemorrhoids, unspecified hemorrhoid type [facility] encounter [facility]* Diagnosis COVID-19- Primary Omphalitis in adult Unspecified local infection of skin and subcutaneous tissue documented in this encounter [facility] Phone: evaluation note* Diagnosis Encounter for general adult medical examination with abnormal findings- Primary Anxiety and depression History of opioid abuse (HCC) Morbid obesity with body mass index (BMI) of 40.0 or higher (HCC) documented in [facility]* Diagnosis Anxiety and depression- Primary At risk for obstructive sleep apnea Chronic bilateral low back pain without sciatica Hepatitis C antibody positive in blood Body mass index 40.0-44.9, adult (HCC) Body Mass Index 40.0-44.9, adult History of opioid abuse (HCC) documented in this encounter [facility]* Diagnosis Morbid obesity with body mass index (BMI) of 40.0 or higher (HCC) documented in this encounter [facility]* Diagnosis Acute pharyngitis, unspecified etiology- Primary documented in this encounter [facility] Phone: evaluation note* Diagnosis Acute bronchitis, unspecified organism- Primary documented in this encounter [facility] Phone: evaluation note* Diagnosis Masseter muscle spasm- Primary Spasm of muscle Other acute postprocedural pain documented in this encounter [facility] Phone: evaluation note* Diagnosis Dry socket- Primary Alveolitis of jaw documented in this encounter [facility] Phone: evaluation note* Diagnosis Sprain of right ankle, unspecified ligament, initial encounter- Primary documented in this encounter [facility]* Diagnosis Toothache- Primary Unspecified disorder of the teeth and supporting structures Dental decay Unspecified dental caries documented in this [facility]* Diagnosis 26 weeks gestation of - Primary state, incidental [facility] in [facility]* Instructions* Anuj Quinn MD - 06/24/2020 Although many puvh-xxk-lkacuej cough cold flu sinus medications are safe in , I would contact her DRUM CLEANER office in [facility] to verify what your DRUM CLEANER group feels a safe in . Tylenol [...] be sent through Care Everywhere. * Sinusitis (Citizen [place]) [facility] Phone: [facility] Discharge instructions* Attachments The following attachments cannot be sent through Care Everywhere. * URI (Upper Respiratory Infection) (Citizen Of [place]) [facility] this [facility] Phone: Hospital Discharge instructions* Attachments The following attachments cannot be sent through Care Everywhere. * Muscle Strain (Citizen Of [place]) [facility] Phone: Hospital Discharge instructions* Attachments The following attachments cannot be sent through Care Everywhere. * Viral Infections (Citizen Of [place]) [facility] Phone: [facility] Discharge instructions* Attachments The following attachments cannot be sent through Care Everywhere. * Coronavirus Disease (COVID-19): General Info (Citizen Of [place]) * Coronavirus Disease (COVID-19): Isolation (Citizen Of [place]) * Piercing: Infection (Citizen Of [place]) documented [facility] Phone: Hospital Discharge instructions* Instructions* Clark Moser MD - 07/22/2021 Use Tylenol or Motrin for pain. Take amoxicillin twice a day. Amoxicillin treats strep throat, ear infections, bronchitis and pneumonia. Call primary care doctor for close follow-up. * Attachments The following attachments cannot be sent through Care Everywhere. * Sore Throat (Citizen Of [place]) [facility] Phone: Hospital Discharge instructions* Attachments The following attachments cannot be sent through Care Everywhere. * Bronchitis (Citizen Of [place]) documented in this [facility] Phone: Hospital Discharge instructions* Attachments The following attachments cannot be sent through Care Everywhere. * Cramp: Muscle (Citizen Of [place]) * Pain Post-Surgery: Acute (Citizen Of [place]) documented in this encounterC[facility]LAND [email or web address] [facility] Phone: [facility] Discharge instructions* Attachments The following attachments cannot be sent through Care Everywhere. * [place] Tooth Extraction: Post-op (Citizen Of [place]) documented in this encounter[facility]ITALAnaptys[facility] Phone: [facility] Discharge instructions No data available for this section [facility] Discharge instructions* Attachments The following attachments cannot be sent through Care Everywhere. * Ankle Sprain (Citizen Of [place]) [facility]* Attachments The following attachments cannot be sent through Care Everywhere. * : Weeks 26 to 30 (Citizen Of [place]) * : When to Call (After 20 Weeks): General Info (Citizen Of [place]) * : Twins: General Info (Citizen Of [place]) documented in this encounterRetreat Doctors' Hospitalgress note No data available for this section [facility] for referral (narrative)* Consultation (Routine) Status Reason Specialty Diagnoses / Procedures Referred By Contact Referred To Contact Authorized Nutrition Diagnoses Diet controlled gestational diabetes mellitus (GDM) in second trimester Lelo Gallegos MD [address] [place] [address] Nutrition Services [address] [place] [address] [facility] for visit Narrative* Consultation (Routine) - Pending Review Specialty Diagnoses / Procedures Referred By Contac t Referred To Contact Gastroenterology Diagnoses Hemorrhoids, unspecified hemorrhoid type Germania Galaviz, EQUIPMENT CLEANER [address] [place] [address] Holland Ann MD [address] [place] [address] Referral ID Status Reason Start Date Expiration Date V isits Requested Visits Authorized [id number] Pending Review 12/29/2020 01/14/2022 1 1 [facility] Assessments Diagnosis Accidental overdose of heroin, [...] FoundDocuments on File Type Date Recorded Patient Registration Representative Expl anation Advance Directives and Living Will Power of Wind Power Project Manager Documents on File Type Date Recorded Patient Registration Representative Expl anation Advance Directives and Living Will 06/14/2019 7:25 AM does not have 05/17/2 0 Latest Code Status on File Code Status Date Activated Date Inactivated Comments Full Code 06/15/2019 9:29 AM 06/17/2019 4:38 PM Full Code - Unverified 06/14/2019 8:35 AM 06/15/2019 9:29 AM Documents on File Type Date Recorded Patient Registration Representative Expl anation Advance Directives and Living Will 06/14/2019 7:25 AM does not have 13/2 0 Latest Code Status on File Code Status Date Activated Date Inactivated Comments Full Code 06/15/2019 9:29 AM 06/17/2019 4:38 PM Full Code - Unverified 06/14/2019 8:35 AM 06/15/2019 9:29 AM Documents on File Type Date Recorded Patient Registration Representative Expl anation Advance Directives and Living Will 06/20/2019 1:10 PM does not have 3/13/2 0 Documents on File Type Date Recorded Patient Registration Representative Expl anation ACP-Advance Directive ACP-Power of Wind Power Project Manager Documents on File Type Date Recorded Patient Registration Representative Expl anation Advance Directives and Living Will 06/20/2019 1:10 PM does not have 3/13/2 0 Documents on File Type Date Recorded Patient Registration Representative Expl anation Advance Directives and Living Will 08/28/2020 5:58 AM does not have 3/13/2 0 Latest Code Status on File Code Status Date Activated Date Inactivated Comments Full Code 08/28/2020 11:15 AM 08/30/2020 11:53 AM Full Code 08/28/2020 5:31 AM 08/28/2020 11:07 AM Full Code 06/15/2019 9:29 AM 06/17/2019 4:38 PM Documents on File Type Date Recorded Patient Registration Representative Expl anation Advance Directives and Living Will 08/28/2020 5:58 AM does not have 3/13/2 0 Latest Code Status on File Code Status Date Activated Date Inactivated Comments Full Code 08/28/2020 11:15 AM 08/30/2020 11:53 AM Full Code 08/28/2020 5:31 AM 08/28/2020 11:07 AM Full Code 06/15/2019 9:29 AM 06/17/2019 4:38 PM Documents on File Type Date Recorded Patient Registration Representative Expl anation Advance Directives and Livin g Will 05/15/2021 12:00 AM Latest Code Status on File Code Status Date Activated Date Inactivated Comments Full Code 10/05/2023 9:02 PM Hospital Course * Savita Stiles PA-C - 06/17/2019 10:12 AM EDT MEDONE DISCHARGE SUMMARY Tia Levin Account: [id number] Admitted: 06/14/2019 Discharge Date/Time: 06/17/19 / 10:12 [...] amphetamine and heroine use who presented to [facility] 06/14/19 with complaints of abdominal pain and nausea. [facility] AST 1116 ALT 665 Alk phos 255 T bili 6.5 Lipase 8. CTAP revealed pericholecystic fluid vs GB wall thickening, no gallstones or hepatic pathology noted. Patient transferred to [facility] 06/14/2019 for further treatment and evaluation. [...] chart for all vitals, diagnostic data, and gift consultant notes. I discussed patient's case with Dr. Gregorio, Dr. Hay (GI) and RN. Discharge Medications Medication List ASK your doctor about these medications naltrexone microspheres Commonly known as: VivitroL Inject 380 (three hundred eighty) mg into the shoulder, thigh, or buttocks every 30 (thirty) days . Physician(s) Family: Physician No, Phone: None, Address: [facility] Follow Up: Javier Hay MD [address] [place] [address] [facility] [address] Follow up Repeat weekly CBC, CMP and PT/INR for the next 3-4 weeks then follow up out patient with Dr. Hay. Laboratory Follow Up by [facility]: Weekly labs for CBC, CMP, PT/INR Additional Information: Patient seen and examined day of discharge. For more information regarding patient's care, including complete radiology reports, please contact [place] [facility] at Patient instructions, including activity, [...] amphetamine and heroine use who presented to [facility] 06/14/19 with complaints of abdominal pain and nausea. H AST 1116 ALT 665 Alk phos 255 T bili 6.5 Lipase 8. CTAP revealed pericholecystic fluid vs GB wall thickening, no gallstones or hepatic pathology noted. Patient transferred to [facility] 06/14/2019 for further treatment and evaluation. [...] 1:16 PM EDT RESOURCES FOR PRIMARY CARE [facility] Closed Opens tomorrow [address], [place], [place] [id number] [facility] [place] [address] [place] [address] DIRECTIONS WEBSITE [facility] Walk-In Care Closed Opens tomorrow 11 AM [address] [place] [address] documented in this encounter* Instructions* Adia Dillon, [...] Opioid Use Disorder: Medication-Assisted Treatment: General Info (Citizen Of [place]) documented in this encounter* Attachments The following attachments cannot be sent through Care Everywhere. * Bacterial Vaginosis (Citizen Of [place]) * Trichomoniasis (Citizen Of [place]) documented in this encounter* Attachments The following attachments cannot be sent through Care Everywhere. * Dental Surgery: Generic: Post-op (Citizen Of [place]) documented in this encounter* Attachments The following attachments cannot be sent through Care Everywhere. * Bronchitis (Citizen Of [place]) * Pneumonia (Citizen Of [place]) documented in this encounter* Attachments The following attachments cannot be sent through Care Everywhere. * Poison Arabella - Aneta - and Sumac (Citizen Of [place]) documented in this encounter History of Present Illness * Javier Hay MD - 06/17/2019 9:59 AM EDT GASTROENTEROLOGY DAILY PROGRESS NOTE 1 Patient Name: Tia Levin MR #: [id number] Assessment/Plan: Elevated LFTs Assessment & Plan 29yo F with PMHx IVDU and hepatitis C who presents from [facility] with elevated LFTs and imaging c/f possible [...] Auguste MD - 06/17/2019 7:41 AM EDT [facility]/17/2019 Tia Levin 1990 [id number] Assessment/Plan: Tia Levin is a 29 y.o. female with a history of amphetamine and heroine use who presented to [facility] 06/14/19 with complaints of abdominal pain and nausea. OL AST 1116 ALT 665 Alk phos 255 T bili 6.5 Lipase 8. CTAP revealed pericholecystic fluid vs GB wall thickening, no gallstones or hepatic pathology noted. Patient transferred to [facility] 06/14/2019 for further treatment and evaluation. 1. Acute Liver Injury: OL AST 1116 ALT 665 Alk phos 255 [...] labs, diagnostics, vitals including pulse ox, and gift consultant/other provider recommendations. No acute issues overnight [...] 2 Patient Name: Tia Levin MR #: [id number] Assessment/Plan: Elevated LFTs Assessment & Plan 29yo F with PMHx IVDU and hepatitis C who presents from [facility] with elevated LFTs and imaging c/f possible [...] Auguste MD - 06/16/2019 9:38 AM EDT [facility] Inpatient Progress Note 06/16/2019 Tia Levin 1990 [id number] Assessment/Plan: Tia Levin is a 29 y.o. female with a history of amphetamine and heroine use who presented to [facility] 06/14/19 with complaints of abdominal pain and nausea. [facility] AST 1116 ALT 665 Alk phos 255 T bili 6.5 Lipase 8. CTAP revealed pericholecystic fluid vs GB wall thickening, no gallstones or hepatic pathology noted. Patient transferred to [facility] 06/14/2019 for further treatment and evaluation. 1. Acute Liver Injury: [facility] AST 1116 ALT 665 Alk phos 255 [...] recent labs, diagnostics, vitals including pulseox, and gift consultant/other provider recommendations. No acute issues overnight [...] Lab Units 06/16/19 0632 06/15/19 04506/14/19 1037 WBC K/mcL 6.48 5.74 7.28 HGB [...] 2 Patient Name: Tia Levin MR #: [id number] Assessment/Plan: Elevated LFTs Assessment & Plan 29yo F with PMHx IVDU and hepatitis C who presents from [facility] with elevated LFTs and imaging c/f possible [...] Radiology, Medications and Transcriptions Aisha Hare CNP [facility] (for staff use only) * Indra Pruitt MD - 06/15/2019 10:43 AM EDT [facility] 06/15/2019 Tia Levin 1990 [id number] Assessment/Plan: Tia Levin is a 29 y.o. female with a history of amphetamine and heroine use who presented to [facility] 06/14/19 with complaints of abdominal pain and nausea. [facility] AST 1116 ALT 665 Alk phos 255 T bili 6.5 Lipase 8. CTAP revealed pericholecystic fluid vs GB wall thickening, no gallstones or hepatic pathology noted. Patient transferred to [facility] 06/14/2019 for further treatment and evaluation. [...] None Anticipated Home Care Needs: None * Denana Medina RN - 06/14/2019 8:55 AM EDT COMPLEX DISCHARGE Date: 06/14/2019 Time: 8:56 AM Patient Name: Tia Levin Date of : 1990 Sex: Female Patient is from home and will return with her mother upon discharge. Patient does not have a PCP and refused a corrections caseworker consult for assistance. Verified insurance and Rx. [...] 10:48 AM EDT Patient on TCC EPIC [facility] for follow-up. After provider review, I called and spoke with patient and changed her appointment to a phone visit, same date/time. In addition, as per provider request, I spoke with patient about going to any [facility] to have her lab taken so it will be available for review on 06/20/19 when she is called for her TCC appointment. Patient agreed with this plan. documented in this encounter* Anastasiia Garza CNP - 06/20/2019 1:16 PM EDT Attempted to call the patient for her tele-health visit today though she did not answer. Called [employer] number 5 times and home phone once, neither phone number left me the option to leave a voicemail. * Franchesca Skaggs MA - 06/20/2019 1:13 PM EDT Abdominal pain and yellow eyes follow up. Patient states that she is not feeling better but not worse. Does not have a PCP. Does want PCP right now. documented in this encounter* Neris Ulloa, RD - 06/10/2020 10:33 AM EDT Patient [...] daily (lemon water) Occasional iced coffee at [employer]. Was drinking a lot of Mountain Dew and Energy drinks prior to but stopped. Meals Away From Home - most days, fast food Past Medical History: Past Medical History: Diagnosis Date Anxiety Depression Infectious viral hepatitis hep c PTSD (Post-Traumatic Stress Disorder) History From: History obtained from patient and chart review. Current/Pertinent Medications: prescription for Current Outpatient Medications Ordered in [facility] Medication Sig Dispense Refill amoxicillin (AMOXIL) 250 [...] daily . 90 tablet 3 No current [facility]-ordered facility-administered medications on file. SMBG Results: 93 [...] Referral Specialty Diagnoses / Procedures Referred By Joey grimes Referred To Contact Nutrition Diagnoses Morbid obesity with body mass index (BMI) of 40.0 or higher ([facility]) Farhat Vang MD [address] Referral ID Status Reason Start Date Expiration Date Visits Requested Visits Authorized [id number] Authorized Specialty Services Required/Pat ient's Best Interest 04/16/2021 04/16/2022 1 1 Specialty Diagnoses / Procedures Referred By Joey grimes Referred To Contact Neurosurgery Diagnoses Chronic bilateral low back pain without sciatica Farhat Vang MD [address] [address] Carina Kline MD [address] [facility] [address] [place] [id number] Referral ID Status Reason Start Date Expiration Date Visits Requested Visits Authorized [id number] Authorized Specialty Services Required/Pat ient's Best Interest 05/14/2021 05/14/2022 1 1 Specialty Diagnoses / Procedures Referred By Contac t Referred To Contact Rehabilitation Diagnoses Chronic bilateral low back pain without sciatica Farhat Vang MD [address] [place] [phone] Referral ID Status Reason Start Date Expiration Date Visits Requested Visits Authorized [id number] Authorized Specialty Services Required/Pat ient's Best Interest 05/14/2021 05/14/2022 1 1 Specialty Diagnoses / Procedures Referred By Contedilson t Referred To Contact Diagnoses At risk for obstructive sleep apnea Farhat Vang MD [address] [address] Gabriel Jacinto MD [address] [place] [address] Referral ID Status Reason Start Date Expiration Date Visits Requested Visits Authorized [id number] Authorized Specialty Services Required/Pat ient's Best Interest 05/14/2021 05/14/2022 1 1 Additional Source Comments Reason for Visit (unrecogniz ed section and content) Reason Comments Drug Overdose Pt was brought in by [facility] for heroin OD. Prior to arrival [facility] [...] in second trimester Lelo Gallegos MD [address] [place] [phone] Nutrition Services [address] [place] [address] Reason Comments Gestational Diabetes Status Reason Specialty Diagnoses / Procedures Referred By Contact Referred To Contact Closed Endocrinology Diagnoses Diet controlled gestational diabetes mellitus (GDM) in second trimester Roslyn Stevenson MD [address] [facility] [address] [place] [address] Lelo Gallegos MD [address] [place] [id number] Reason Comments Pharyngitis sore throat and head [...] index (BMI) of 40.0 or higher ([facility]) Farhat Vang MD [address] [facility] [address] [place] [address] Nutrition Services [address] [place] [address] Referral ID Status Reason Start Date Expiration Date Visits Requested Visits Authorized [id number] Authorized Specialty Services Required/Pat ient's Best Interest [...] and Physical Note 06/14/19 Tia Levin 1990 [id number] Assessment/Plan: Tia Levin is a 29 y.o. female with a history of amphetamine and heroine use who presented to [facility] 06/14/19 with complaints of abdominal pain and nausea. [facility] AST 1116 ALT 665 Alk phos 255 T bili 6.5 Lipase 8. CTAP revealed pericholecystic fluid vs GB wall thickening, no gallstones or hepatic pathology noted. Patient transferred to [facility] 06/14/2019 for further treatment and evaluation. 1. Elevated LFTs: [facility] AST 1116 ALT 665 Alk phos 255 T bili 6.5 (normal 02/2019). OL CTAP as noted above. RUQ U/S 06/14/19 [...] amphetamine and heroine use who presented to [facility] 06/14/19 with complaints of abdominal pain and nausea. [facility] AST 1116 ALT 665 Alk phos 255 T bili 6.5 Lipase 8. CTAP revealed pericholecystic fluid vs GB wall thickening, no gallstones or hepatic pathology noted. Patient transferred to [facility]S AT [facility] 06/14/2019 for further treatment and evaluation. [...] labs, diagnostics, vitals including pulse ox, and gift consultant/other provider recommendations. Discussed with collaborating physician [...] file Gets together: Not on file Attends episcopalian service: Not on file Active member of [...] reviewed, including documentation from previous hospitalizations and gift consultant recommendations as summarized below. Briefly, patient [...] Jackson Jain MD - 06/16/2019 10:43 AM Aisha Morley CNP - 06/14/2019 10:05 AM EDT Consult Notes (unrecognized section and content) Associated Order(s): IP CONSULT TO GENERAL SURGERY Clinic Surgery Consult Note Patient Name: Tia Levin Admit Date: MR #: [id number] : 1990 Senior addendum 29 y/o F [...] Hepatitis C, and hx of presents to [facility] with jaundice and abdominal pain. -RUQ [...] Fleming MD General Surgery, PGY 2 Pager# [phone] 06/16/2019, 10:43 AM After 5 PM and on Weekends, please page [phone] (Surgery Chemistry Physics Teacher health promotion coordinator) History of Present Illness: Patient presented for [...] file Gets together: Not on file Attends episcopalian service: Not on file Active member of [...] patient. I discussed the case with the resident/CLASSIFIER and agree with the findings and plan as documented in his/her note and/or any note I supplied. Associated Order(s): IP CONSULT TO GASTROENTEROLOGY GASTROENTEROLOGY CONSULT NOTE 4 Patient Name: Tia Levin Admit Date: MR #: [id number] : 1990 Physicians: Physician No (Family); Brie Moreno MD (Referring) Consult Ordered By: Franny Sims PA-C Assessment and Plan: Other Elevated LFTs Assessment & Plan 29yo F with PMHx IVDU and hepatitis C who presents from [facility] with elevated LFTs and imaging c/f possible [...] IVDU and hepatitis C who presents from [facility] with elevated LFTs and imaging c/f possible [...] has been in and out of senior living over past 3mo. She denies EtOH. Denies NSAID and significant Tylenol use. Denies new medications, herbal supplements, or recent ATBx. She denies any known FH of liver disease or GI related malignancies. Current LFTs include: AP 255, AST/ALT 665/1116, TB 6.5 (of note were normal in 02/2019). CTa/p w IVC at [facility] demonstrated moderate GBW thickening w pericholecystic fluid [...] file Gets together: Not on file Attends episcopalian service: Not on file Active member of [...] [86-87] 86 Resp: [16-18] 16 BP: (94-99)/(56-66) 99/ CONSTITUTIONAL: Appropriate attention to grooming, normal body [...] Invalid input(s): CO2, LABALBU Aisha Hare CNP [facility] (for staff use only) Associated [...] PM EDTPlan of Care - Isha Root, RN - 06/14/2019 8:30 AM EDT Miscellaneous [...] reviewed, including documentation from previous hospitalizations and gift consultant recommendations as summarized below. Briefly, patient [...] IVDU and hepatitis C who presents from [facility] with elevated LFTs and imaging c/f possible [...] Adia Dillon CNP - 08/13/2019 7:43 PM ALLENTAdia Elena RN - 08/13/2019 7:43 PM Jimena Barnes RN - 08/13/2019 7:38 PM EDT ED Notes (unrecognized secti on and content) ED PROVIDER NOTE [facility] EMERGENCY DEPARTMENT NAME: Tia Levin AGE: 29 y.o. : 1990 VISIT DATE: 08/13/2019 CSN: [id number] PCP: Physician No Chief Complaint Patient presents with Drug Overdose This is a 29-year-old female brought to the ER via EMS for evaluation. Time my exam patient is alert and oriented. She states she was in the [employer] parking lot bent over in her car [...] file Gets together: Not on file Attends episcopalian service: Not on file Active member of [...] Oral 5' 3 79.4 kg (175 lb) 08/13/19 194 (!) 156/60 (!) 138 16 98 % Physical Exam Vitals signs and nursing note reviewed. Exam conducted with a leasing assistant present (Nurses at the bedside). Constitutional: [...] for helping people with drug addiction. [address] [facility] [address] Contact information for after-discharge care Follow-up information has not been specified. Adia Dillon CNP 08/13/19 194 Pt brought in by [facility], states she was found by [...] section and content) DATE CREATED AUTHOR 08/21/2019 [facility]ital DATE CREATED AUTHOR AUTHOR'S ORGANIZ ATION 02/15/2021 [facility] DATE CREATED AUTHOR AUTHOR'S ORGANIZ ATION 05/18/2021 [facility] DATE CREATED AUTHOR AUTHOR'S ORGANIZ ATION 07/02/2021 [facility] DATE CREATED AUTHOR AUTHOR'S ORGANIZ ATION 07/09/2021 [facility] DATE CREATED AUTHOR AUTHOR'S ORGANIZ ATION 07/05/2022 [facility] DATE CREATED AUTHOR AUTHOR'S ORGANIZ ATION 05/14/2023 [facility] DATE CREATED AUTHOR AUTHOR'S ORGANIZ ATION 09/19/2023 [facility] d[facility] Specialists EPIC DATE CREATED AUTHOR AUTHOR'S ORGANIZ ATION 10/07/2023 [facility] DATE CREATED AUTHOR AUTHOR'S ORGANIZ ATION 10/08/2023 [facility] Ordered Prescriptions (unrec ognized section and [...] 60 mg, Oral, ONCE, 1 dose, On 10/12/21 at 1830 183 (Given - Provid er: Zayda Beck RN) Scheduled Medication Order 05/09/2022 05/10/2022 05/11/2022 HYDROcodone-acetaminophen (NORCO) 5-325 MG per tablet 2 tablet (COMPLETED) 2 tablet, Oral, ONCE, 1 dose, On 05/11/22 at 1945, Maximum dose of acetaminophen is 4000 mg from all sources in 24 hours. 1941 (Given - Provid er: Briana Burleson RN) ketorolac (TORADOL) injection 60 mg (COMPLETED) 60 mg, IntraMUSCular, ONCE, 1 dose, On Tue05/11/22 at 2130, Do not administer for more than 5 days. 213 (Given - Provid er: Melvi Conner RN) orphenadrine (NORFLEX) injection 60 mg (COMPLETED) 60 mg, IntraMUSCular, ONCE, 1 dose, On Tue05/11/22 at 2130 213 (Given - Provid er: Melvi Conner RN) [...] 60 mg, IntraMUSCular, ONCE, 1 dose, On Tue09/04/22 at 1230, Do not administer for more than 5 days. 1225 (Given - Provid er: Briana Burleson RN) PRN Medication Order 10/03/2023 10/04/2023 10/05/2023 acetaminophen (TYLENOL) tablet 1,000 mg 1,000 mg, Oral, EVERY 6 HOURS PRN, Starting on Tue10/05/23 at 2101, Until Discontinued, Pain Mild (1-3), Pain Moderate (4-6), headache, Maximum dose of acetaminophen is 4000mg from all sources in 24 hours. Alternate ibuprofen and acetaminophen every 4 hours. ondansetron (ZOFRAN) injection 4 mg(Linked Group 1) 4 mg, IntraVENous, EVERY 6 HOURS PRN, Starting on Tue10/05/23 at 2101, Until Discontinued, Nausea, Vomiting, Administer if oral route cannot be used. ondansetron (ZOFRAN-ODT) disintegrating tablet 4 mg(Linked Group 1) 4 mg, Oral, EVERY 8 HOURS PRN, Starting on Tue10/05/23 at 2101, Until Discontinued, Nausea, Vomiting Linked Groups Order Group 1: ondansetron (ZOFRAN-ODT) disintegrating tablet 4 mgJump to med 4 mg, Oral, EVERY 8 HOURS PRN, Starting on Tue10/05/23 at 2101, Until Discontinued, Nausea, Vomiting Or ondansetron (ZOFRAN) injection 4 mgJump to med 4 mg, IntraVENous, EVERY 6 HOURS PRN, Starting on Tue10/05/23 at 210, Until Discontinued, Nausea, Vomiting
Administer if oral route cannot be used.
Care Teams (unrecognized sec tion and content) Border Measurer And Cutter Relationship Specialty Start Date End Date No, Physician [facility] PCP - General 12/29/20 Germania Galaviz, EQUIPMENT CLEANER [address] [facility] [address] [place] [address] Nurse Practitioner Obstetrics/Gynecology 11/01/19 Border Measurer And Cutter Relationship Specialty Start Date End Date No, Physician [facility] PCP - General 12/29/20 Germania Galaviz, EQUIPMENT CLEANER [address] [place] [address] Nurse Practitioner Obstetrics/Gynecology 11/01/19 Border Measurer And Cutter Relationship Specialty Start Date End Date Farhat Vang MD [address] [facility] [address] [place] [address] PCP - General Family Medicine 04/16/21 Germania Galaviz, EQUIPMENT CLEANER [address] [place] [address] Nurse Practitioner Obstetrics/Gynecology 11/01/19 Radha Pantoja MD [address] [place] [address] Validation Intern Obstetrics/Gynecology 02/02/21 Yvonne Santos MD [address] [facility] [place] [address] Validation Intern Obstetrics/Gynecology 02/02/21 Regla Dias, [facility] [address] [place] [address] Fertilizing Machine Operator Obstetrics/Gynecology 02/02/21 Border Measurer And Cutter Relationship Specialty Start Date End Date Farhat Vang MD [address] [address] PCP - General Family Medicine 04/16/21 Germania Galaviz, EQUIPMENT CLE[employer] [address] [facility] [place] [address] Nurse Practitioner Obstetrics/Gynecology 11/01/19 Radha Pantoja MD [address] [place] [address] Validation Intern Obstetrics/Gynecology 02/02/21 Yvonne Santos MD [address] [facility] [place] [address] Validation Intern Obstetrics/Gynecology 02/02/21 eRgla Dias, [facility] [address] [place] [address] Fertilizing Machine Operator Obstetrics/Gynecology 02/02/21 Border Measurer And Cutter Relationship Specialty Start Date End Date Farhat Vang MD [address] [facility] [address] [place] [address] PCP - General Family Medicine 04/16/21 Germania Galaviz, EQUIPMENT CLEANER [address] [facility] [address] [place] [address] Nurse Practitioner Obstetrics/Gynecology 11/01/19 Radha Pantoja MD [address] [facility] [address] [address] [place], [place] [id number] Validation Intern Obstetrics/Gynecology 02/02/21 Yvonne Santos MD [address] [facility] [address] [place] [address] Validation Intern Obstetrics/Gynecology 02/02/21 Regla Dias CNM [address] [facility] [place] [address] Fertilizing Machine Operator Obstetrics/Gynecology 02/02/21 Border Measurer And Cutter Relationship Specialty Start Date End Date Linda Sheppard, DO [address] [place] [address] PCP - General Family Medicine 09/04/22 Border Measurer And Cutter Relationship Specialty Start Date End Date Linda Sheppard, DO [address] [place] [address] PCP - General Family Medicine 09/04/22 Border Measurer And Cutter Relationship Specialty Start Date End Date Linda Sheppard, DO [address] [place] [address] PCP - General Family Medicine 09/04/22 FOR [...] BE BASED ON THE PRIMARY CLINICAL RECORDS. [facility] provides no warranty or guarantee of the accuracy or completeness of information in this document.
--- NOTE | 2023-10-12 08:48 | US_ITS ---
[address] [address] Patient Name: TIA MONROE MRN: [id number] date: 1990 Sex: F Assigned Patient Location: [facility] Current Patient Location: [facility] Accession/Order Number: [id number] Exam Date: 10/12/2023 08:50 Report Date: 10/12/2023 10:02 At the request of: DARWIN MONROY Procedure: US OB amniotic fluid vol EXAMINATION: US OB amniotic fluid vol, US OB cervical length HISTORY: SROM?/Twin COMPARISON: Ultrasound OB placenta 08/05/2023 TECHNIQUE: Transabdominal and transvaginal sonographic examination for cervical length. FINDINGS: CERVIX LENGTH: 4.6 cm, closed. POSITION: Transverse with head to left / Breech-oblique with head to right HEART RATE: 141 bpm / 130 bpm AMNIOTIC FLUID: Deepest pocket 4.7 x 6.5 cm / 11.5 x 8.7 cm Age by EDC: 27 weeks 6 days GEM by EDC: 01/05/2024 US/US OB amniotic fluid vol IMPRESSION: 1. Live twin intrauterine . 2. Normal amniotic fluid volume with deepest pocket is detailed above. 3. Closed cervix 4.6 cm in length. Electronically authenticated by: BETTYE DANIELS Date: 10/12/2023 10:02
--- NOTE | 2023-10-12 08:48 | US_ITS ---
[address] [address] Patient Name: TIA MONROE MRN: [id number] date: 1990 Sex: F Assigned Patient Location: [facility] Current Patient Location: [facility] Accession/Order Number: [id number] Exam Date: 10/12/2023 08:50 Report Date: 10/12/2023 10:02 At the request of: DARWIN MONROY Procedure: US OB cervical length EXAMINATION: US OB amniotic fluid vol, US OB cervical length HISTORY: SROM?/Twin COMPARISON: Ultrasound OB placenta 08/05/2023 TECHNIQUE: Transabdominal and transvaginal sonographic examination for cervical length. FINDINGS: CERVIX LENGTH: 4.6 cm, closed. POSITION: Transverse with head to left / Breech-oblique with head to right HEART RATE: 141 bpm / 130 bpm AMNIOTIC FLUID: Deepest pocket 4.7 x 6.5 cm / 11.5 x 8.7 cm Age by EDC: 27 weeks 6 days GEM by EDC: 01/05/2024 US/US OB cervical length IMPRESSION: 1. Live twin intrauterine . 2. Normal amniotic fluid volume with deepest pocket is detailed above. 3. Closed cervix 4.6 cm in length. Electronically authenticated by: BETTYE DANIELS Date: 10/12/2023 10:02
[2023-10-12 08:56] VITALS: BP 116/72; PULSE 107
[2023-10-12 08:58] LABS: Bilirubin Urine NEGATIVE (NEGATIVE); Blood Urine NEGATIVE (NEGATIVE); Clarity Urine CLEAR (CLEAR); Color Urine LT. YELLOW (YELLOW); Glucose Urine UA NEGATIVE (NEGATIVE); Ketones Urine NEGATIVE (NEGATIVE); Leukocyte Esterase Urine NEGATIVE (NEGATIVE); Nitrite Urine NEGATIVE (NEGATIVE); Protein Urine NEGATIVE (NEG/TRACE); Urobilinogen Urine 0.2 EU/dL (0.2-1.0)
[2023-10-12 08:59] LABS: Urine Microscopic Indicated NO
[2023-10-12 09:08] LABS: Amnisure NEGATIVE (NEGATIVE); Internal Control Within Normal Limits
== END 2023-10-12 10:08 | disposition home or self-care (01) ==
PROVIDERS: Admitting Provider Obstetrics & Gynecology; Visit Provider Obstetrics & Gynecology
DX: Z03.71 Encounter for suspected problem with amniotic cavity and membrane ruled out (principal); O30.002 Twin pregnancy, unspecified number of placenta and unspecified number of amniotic sacs, second trimester; Z3A.27 27 weeks gestation of pregnancy
CPT/HCPCS: 59025; 76815; 76817; 81003; 84112; G0378; G0379

== ENCOUNTER 2023-11-01 07:28 | Outpatient (OUT) | payer BC, SELFPAY ==
--- OUTSIDE RECORDS SUMMARY | 2023-11-01 07:34 | XMS_ITS | CCD ---
Author Organization [facility] ion Partnership [facility] Care Team Providers Care Luggage Attendant Name Role Phone Unavailable Primary Care Provider Unavailabl e No, Physician Primary Care Provider Unavailabl e HODA MADERA Unavailable Unavailable Primary Care Provider Unavailabl e No, Physician Primary Care Provider Unavailabl Germania Becerra Unavailable Roslyn Stevenson Unavailable Radha Pantoja Unavailable [phone] Yvonne Santos Unavailable [phone] Larissa, Regla Corina Unavailable No, Physician Primary Care Provider UnavailGermania Rodriguez CNP Unavailable [phone] Roslyn Stevenson MD Unavailable Radha Pantoja MD Unavailable Yvonne Santos MD Unavailable Larissa CNM, Regla Corina Unavailable Unavailable Primary Care Provider UnavailGermania Rodriguez CNP Unavailable [phone] Roslyn Stevenson MD Unavailable Radha Pantoja MD [...] Pantoja MD Unavailable Yvonne Santos MD Unavailable [phone] Larissa KHOURY, Regla Corina Unavailable Ciera PEDRAZA, [...] PAPADOPOL, NARCIS DAWIT Primary Care Unavaila ble ABELINO BRIE GAGE Attending Unavailabl e PAPADOPOL, NARCIS DAWIT Primary [...] Attending Unavailable MD Todd Smart Admitting Unavailable LINDA SHEPPARD Primary Care Unavailable CHET BERUMEN Attending Unavailable LINDA SHEPPARD Primary Care Unavailable CHET BERUMEN Attending Unavailable MARK DUMONT Referring Unavailable LINDA SHEPPARD Primary Care Unavailable MARK DUMONT Referring Unavailable LINDA SHEPPARD Primary Care Unavailable LINDA SHEPPARD Primary Care Unavailable NICHOLAS ROGER Attending Unavailable MARK DUMONT Attending Unavailable MARK DUMONT Attending Unavailable MARK DUMONT Attending Unavailable MARK DUMONT Attending Unavailable MARK DUMONT Attending Unavailable BLAKE KAUFFMAN Referring Unavailable LINDA SHEPPARD Primary Care Unavailable VIOLTE JUAREZ Admitting Unavailable VIOLET JUAREZ Attending Unavailable LINDA SHEPPARD Primary Care Unavailable VIOLET JUAREZ Consulting Unavailable JOE JARAMILLO Attending Unavailable LINDA SHEPPARD Primary Care Unavailable Medications [...] day(s), # 14 tab(s), Refills(s) 0, Pharmacy: [facility], 160, cm, 05/11/23 21:53:00 EST, Height/Length [...] oral solution (2 sources) alpha-Adrenergic Agonist, Uncompetitive P-ozdgwq-X-aspartate Receptor Antagonist, Sigma-1 Agonist Start: End: take 5 mL by mouth four times daily as needed for cough brompheniramine-pse udoephedrine-DM (BROMFED DM) 2-30-10 MG/5ML syrup Take 5 mLs by mouth 4 times daily as needed for Congestion or Cough 240 mL 1 10/12/2021 11/11/2021 Active Start: 11-07-2020 End: 11-12-2020 take 5 mL by mouth three times daily as needed for cough rkkzjdzksrbpxdd-oaxitfjrtbmsjoy-EL 2-30- 10 MG/5ML syrup Take 5 mLs [...] 0, (swish and spit; do not swallow), [facility], 160, cm, 05/11/23 21:53:00 EST, [...] Active Dextromethorphan / guaiFENesin (2 sources) Uncompetitive O-qniesg-I-asparta te Receptor Antagonist, Sigma-1 Agonist End: 06-24-2020 [...] day(s), # 15 tab(s), Refills(s) 0, Pharmacy: [facility], 160, cm, 05/13/23 11:33:00 EST, Height/Length [...] for Pain. 0 05/10/2023 Discontinued (LIST CLEANUP) [id number] 200 actuat albuterol 0.09 mg/actuat metered dose [...] Oral, Every 4 hours PRN, indigestion, Starting [facility] 06/14/19 at 0831 azithromycin 250 mg [...] Oral, Daily PRN, constipation, For constipation., Starting [facility] 06/14/19 at 0831 naloxone (NARCAN) injection [...] [Chest pain, unspecified] Onset: 10-05-2023 Episodic Other connective tissue disease (1 source) [...] 40.0-44.9, adult] Onset: 12-29-2020 12-29-2020 Chronic Other upper respiratory infections (3 sources) Acute [...] [Accidental overdose of heroin, initial encounter ([facility])] Episodic Substance-related disorders (1 source) Opioid abuse, [...] l admission (14 sources) Admission statuses; Translations: [USP (current) use of opiate analgesic] Onset: 05-18-2019 [...] previous delivery] Onset: 12-20-2016 12-20-2016 Episodic Other complications of (2 sources) Supervision of other high risk pregnancies, second trimester; Translations: [Supervision of other high risk pregnancies, second trimester] Onset: 07-26-2023 Episodic Other female genital disorders (14 sources) [...] Overweight; Translations: [Overweight] Onset: 12-20-2016 12-20-2016 Episodic Other and delivery including normal (3 sources) Normal ; Translations: [Encounter for supervision of normal , unspecified, first trimester] Onset: 05-11-2023 Episodic Other screening for suspected conditions (not mental disorders or infectious disease) (20 sources) Cancer cervix - screening done; Translations: [Liver function tests abnormal] Onset: 12-20-2016 Resolved: 01-02-2020 12-20-2016 Episodic Residual codes; unclassified (5 sources) [...] Coag (Bld) [Time] 29.8 s Normal 23.9-33.8 [place] Comment on above: Result Comment: IV Heparin Therapy Range: 62.0-94.0 Performed By: #### P T, PTT, BMP, CDP, TROPI #### [facility] [address] [place] [address] Muffle Operator: Guero Sandoval MD Basic Metabolic Profon 10-04 Anion gap [Moles/Vol] 13 mmol/L Normal - [facility] Comment on above: Performed By: #### P T, PTT, BMP, CDP, TROPI #### [facility] [address] [place] [address] Muffle Operator: Guero Sandoval MD BUN/CRE Ratio Result cannot be calculated, Creatinine below linear range. Normal - [facility] Comment on above: Performed By: #### P T, PTT, BMP, CDP, TROPI #### [facility] [address] [place] [address] Muffle Operator: Guero Sandoval MD Calcium [Mass/Vol] 8.7 mg/dL Normal 8.6-10.4 [facility] Comment on above: Performed By: #### P T, PTT, BMP, CDP, TROPI #### [facility] [address] [place], [place] [phone] Muffle Operator: Guero Sandoval MD Chloride [Moles/Vol] 105 mmol/L Normal 98-107 [facility] Comment on above: Performed By: #### P T, PTT, BMP, CDP, TROPI #### [facility] [address] [place] [address] Muffle Operator: Guero Sandoval MD CO2 [Moles/Vol] 18 mmol/L Low 20-31 [facility] Comment on above: Performed By: #### P T, PTT, BMP, CDP, TROPI #### [facility] [address] [place] [address] Muffle Operator: Guero Sandoval MD Creatinine [Mass/Vol] mg/dL Low 0.5-0.9 [facility] Comment on above: Performed By: #### P T, PTT, BMP, CDP, TROPI #### [facility] [address] [place] [address] Muffle Operator: Guero Sandoval MD eGFR Can not be calculated Normal >60 [facility] Comment on above: Result Comment: These [...] P T, PTT, BMP, CDP, TROPI #### [facility] [address] [place] [address] Muffle Operator: Guero Sandoval MD Glucose [Mass/Vol] 111 mg/dL High 70-99 [facility] Comment on above: Performed By: #### P T, PTT, BMP, CDP, TROPI #### [facility] [address] [place], [place] [phone] Muffle Operator: Guero Sandoval MD Potassium [Moles/Vol] 3.8 mmol/L Normal 3.7-5.3 [facility] Comment on above: Performed By: #### P T, PTT, BMP, CDP, TROPI #### [facility] [address] [place], [place] [phone] Muffle Operator: Guero Sandoval MD Sodium [Moles/Vol] 136 mmol/L Normal 135-144 [facility] Comment on above: Performed By: #### P T, PTT, BMP, CDP, TROPI #### [facility] [address] [place] [address] Muffle Operator: Guero Sandoval MD Urea nitrogen [Mass/Vol] 6 mg/dL Normal 6-20 [facility] Comment on above: Performed By: #### P T, PTT, BMP, CDP, TROPI #### [facility] [address] [place] [address] Muffle Operator: Guero Sandoval MD Brain Natri. Peptideon 10-04 Pro-BNP <36 Normal 0-300 [facility] Comment on above: Result Comment: An a ge-independent cutoff point of 300 pg/ml has a 98% negative predictive value excluding acute heart failure. Performed By: #### B BLADE ALIGNER, TROPI #### [facility] [employer] [address] [place] [address] Muffle Operator: Thor Hernández MD CBC with Diffon 10-05-2023 Abs. Basophil 0.04 k/uL Normal 0.00-0.20 [facility] Comment on above: Performed By: #### P T, PTT, BMP, CDP, TROPI #### [facility] [address] [place] [address] Muffle Operator: Guero Sandoval MD Abs.Imm.Granulocyte 0.16 k/uL Normal 0.00-0.30 [facility] Comment on above: Performed By: #### P T, PTT, BMP, CDP, TROPI #### [facility] [address] [place] [address] Muffle Operator: Guero Sandoval MD Abs.Neutrophil (Seg) 8.05 k/uL High 2.5-7.0 [facility] Comment on above: Performed By: #### P T, PTT, BMP, CDP, TROPI #### [facility] [address] [place] [address] Muffle Operator: Guero Sandoval MD Basophils/100 WBC (Bld) 0 % Normal 0-2 [facility] Comment on above: Performed By: #### P T, PTT, BMP, CDP, TROPI #### [facility] [address] [place] [address] Muffle Operator: Guero Sandoval MD Eosinophils (Bld) [#/Vol] 0.08 10*3/uL Normal 0.00-0.4 0 [facility] Comment on above: Performed By: #### P T, PTT, BMP, CDP, TROPI #### [facility] [address] [place] [address] Muffle Operator: Guero Sandoval MD Eosinophils/100 WBC (Bld) 1 % Normal 0-5 [facility] Comment on above: Performed By: #### P T, PTT, BMP, CDP, TROPI #### [facility] [address] [place] [phone] Muffle Operator: Guero Sandoval MD Erythrocyte distribution width (RBC) [Ratio] 13.1 % Normal 12.1-15.2 [facility] Comment on above: Performed By: #### P T, PTT, BMP, CDP, TROPI #### [facility] [address] [place] [phone] Muffle Operator: Guero Sandoval MD Hematocrit (Bld) [Volume fraction] 28.8 % Low 36.0-46.0 [facility] Comment on above: Performed By: #### P T, PTT, BMP, CDP, TROPI #### [facility] [address] [place] [phone] Muffle Operator: Guero Sandoval MD Hemoglobin (Bld) [Mass/Vol] 9.8 g/dL Low 12.0-16.0 [facility] Comment on above: Performed By: #### P T, PTT, BMP, CDP, TROPI #### [facility] [address] [place] [address] Muffle Operator: Guero Sandoval MD Immature granulocytes/100 WBC (Bld) 2 % Normal 0-5 [facility] Comment on above: Performed By: #### P T, PTT, BMP, CDP, TROPI #### [facility] [address] [place] [phone] Muffle Operator: Guero Sandoval MD Lymphocytes (Bld) [#/Vol] 1.61 10*3/uL Normal 1.00-4.8 0 [facility] Comment on above: Performed By: #### P T, PTT, BMP, CDP, TROPI #### [facility] [address] [place] [address] Muffle Operator: Guero Sandoval MD Lymphocytes/100 WBC (Bld) 15 % Normal 15-40 [facility] Comment on above: Performed By: #### P T, PTT, BMP, CDP, TROPI #### [facility] [address] [place] [phone] Muffle Operator: Guero Sandoval MD MCH (RBC) [Entitic mass] 27.7 pg Normal 26.0-34.0 [facility] Comment on above: Performed By: #### P T, PTT, BMP, CDP, TROPI #### [facility] [address] [place] [address] Muffle Operator: Guero Sandoval MD MCHC (RBC) [Mass/Vol] 34.0 g/dL Normal 31.0-37.0 [facility] Comment on above: Performed By: #### P T, PTT, BMP, CDP, TROPI #### [facility] [address] [place] [phone] Muffle Operator: Guero Sandoval MD MCV (RBC) [Entitic vol] 81.4 fL Normal 80.0-100.0 [facility] Comment on above: Performed By: #### P T, PTT, BMP, CDP, TROPI #### [facility] [address] [place] [address] Muffle Operator: Guero Sandoval MD Monocytes (Bld) [#/Vol] 0.77 10*3/uL Normal 0.00-1.00 [facility] Comment on above: Performed By: #### P T, PTT, BMP, CDP, TROPI #### [facility] [address] [place] [address] Muffle Operator: Guero Sandoval MD Monocytes/100 WBC (Bld) 7 % Normal 4-8 [facility] Comment on above: Performed By: #### P T, PTT, BMP, CDP, TROPI #### [facility] [address] [place] [address] Muffle Operator: Guero Sandoval MD Neutrophil (Seg) 75 % Normal 47-75 [facility] Comment on above: Performed By: #### P T, PTT, BMP, CDP, TROPI #### [facility] [address] [place] [address] Muffle Operator: Guero Sandoval MD Platelet mean volume (Bld) [Entitic vol] 10.2 fL Normal 6.0-12.0 [facility] Comment on above: Performed By: #### P T, PTT, BMP, CDP, TROPI #### [facility] [address] [place] [address] Muffle Operator: Guero Sandoval MD Platelets (Bld) [#/Vol] 275 10*3/uL Normal 140-450 [facility] Comment on above: Performed By: #### P T, PTT, BMP, CDP, TROPI #### [facility] [address] [place] [address] Muffle Operator: Guero Sandoval MD RBC (Bld) [#/Vol] 3.54 10*6/uL Low 4.00-5.20 [facility] Comment on above: Performed By: #### P T, PTT, BMP, CDP, TROPI #### [facility] [address] [place] [address] Muffle Operator: Guero Sandoval MD WBC (Bld) [#/Vol] 10.7 10*3/uL Normal 3.5-11.0 [facility] Comment on above: Performed By: #### P T, PTT, BMP, CDP, TROPI #### [facility] [address] [place] [address] Muffle Operator: Guero Sandoval MD CT CHEST PULMONARY [...] Carlos Petersen MD 10/05/23 Final result Normal [facility] Liver Profileon 10-05-2023 Albumin [Mass/Vol] 3.0 g/dL Low 3.5-5.2 [facility] Comment on above: Performed By: #### L IVP #### [facility] [address] [place] [address] Muffle Operator: Guero Sandoval MD Alkaline Phos 74 U/L Normal 35-104 [facility] Comment on above: Performed By: #### L IVP #### [facility] [address] [place] [address] Muffle Operator: Guero Sandoval MD ALT [Catalytic activity/Vol] U/L Low 5-33 [facility] Comment on above: Performed By: #### L IVP #### [facility] [address] [place], [place] [phone] Muffle Operator: Guero Sandoval MD AST [Catalytic activity/Vol] 9 U/L Normal <32 [facility] Comment on above: Performed By: #### L IVP #### [facility] [address] [place], [place] [phone] Muffle Operator: Guero Sandoval MD Bilirubin [Mass/Vol] 0.3 mg/dL Normal 0.3-1.2 [facility] Comment on above: Performed By: #### L IVP #### [facility] [address] [place], [place] [phone] Muffle Operator: Guero Sandoval MD Bilirubin, Indirect Can not be calculated Normal 0.0-1.0 [facility] Comment on above: Performed By: #### L IVP #### [facility] [address] [place], [place] [phone] Muffle Operator: Guero Sandoval MD Bilirubin.indirect [Mass/Vol] mg/dL Normal <0.3 [facility] Comment on above: Performed By: #### L IVP #### [facility] [address] [place], [place] [phone] Muffle Operator: Guero Sandoval MD Protein [Mass/Vol] 5.9 g/dL Low 6.4-8.3 [facility] Comment on above: Performed By: #### L IVP #### [facility] [address] [place], [place] [phone] Muffle Operator: Guero Sandoval MD PTon 10-05-2023 INR Coag (PPP) [Relative time] 1.0 {INR} Normal [facility] Comment on above: Result Comment: Therapeutic Range: Moderate Anticoagulant Intensity: INR = 2.0-3.0 High Anticoagulant Intensity: INR = 2.5-3.5 Performed By: #### P T, PTT, BMP, CDP, TROPI #### [facility] [address] [place] [address] Muffle Operator: Guero Sandoval MD PT Coag (PPP) [Time] 13.6 s Normal 11.5-14.2 [facility] Comment on above: Performed By: #### P T, PTT, BMP, CDP, TROPI #### [facility] [address] [place] [address] Muffle Operator: Guero Sandoval MD Troponinon 10-05-2023 Troponin, High Sens <6 Normal 0-14 [facility] Comment on above: Result Comment: High Sensitivity Troponin values cannot be compared with other Troponin methodologies. Performed By: #### B BLADE ALIGNER, TROPI #### [address] [address] Muffle Operator: Thor Hernández MD Troponin, High Sens <6 Normal 0-14 [facility] Comment on above: Result Comment: High Sensitivity Troponin values cannot be compared with other Troponin methodologies. Performed By: #### P T, PTT, BMP, CDP, TROPI #### [facility] [address] [place] [address] Muffle Operator: Guero Sandoval MD UA w/Reflex Cultureon 2023 Bilirubin, SemiQt,Ur Negative Normal NEG [facility] Comment on above: Performed By: #### U RICHYO, UAX #### [facility] [address] [place] [phone] Muffle Operator: Thor Hernández MD Blood, Urine Negative Normal NEG [facility] Comment on above: Performed By: #### U RICHYO, UAX #### [facility] [employer] [address] [place] [phone] Muffle Operator: Thor Hernández MD Clarity (U) Cloudy Abnormal CLEAR [facility] Comment on above: Performed By: #### U RICHYO, UAX #### [facility] [employer] [address] [place] [address] Muffle Operator: hTor Hernández MD Color (U) Yellow Normal YEL [facility] Comment on above: Performed By: #### U MICAO, UAX #### [facility] [address] [place] [address] Muffle Operator: Thor Hernández MD Glucose Ql (U) 1+ mg/dL Abnormal NEG [facility] Comment on above: Performed By: #### U MICAO, UAX #### [facility] [address] [place] [address] Muffle Operator: Thor Hernández MD Ketones Ql (U) TRACE Abnormal NEG [facility] Comment on above: Performed By: #### U MICAO, UAX #### [address] [address] Muffle Operator: Thor Hernández MD Leukocyte esterase Test strip Ql (U) Negative Normal NEG [facility] Comment on above: Performed By: #### U MICAO, UAX #### [address] [address] Muffle Operator: Thor Hernández MD Nitrite,Ur Negative Normal NEG [facility] Comment on above: Performed By: #### U MICAO, UAX #### [address] [address] Muffle Operator: hTor Hernández MD PH,Ur 6.0 Normal 5.0-8.0 [facility] Comment on above: Performed By: #### U MICAO, UAX #### [facility] [employer] [address] [place] [address] Muffle Operator: Thor Hernández MD Protein Ql (U) TRACE Abnormal NEG [facility] Comment on above: Performed By: #### U MICAO, UAX #### [facility] [employer] [address] [place] [address] Muffle Operator: Thor Hernández MD Spec. [place],Ur 1.028 Normal 1.005-1.030 [facility] Comment on above: Performed By: #### U KAYDEN, UAX #### [address] [address] Muffle Operator: Thor Hernández MD Urobilinogen,Ur Normal Normal 0.0-1.0 [facility] Comment on above: Performed By: #### U RICHYO, UAX #### [address] [address] Muffle Operator: Thor Hernández MD Urinalysis,Microon 4 Bacteria MODERATE Abnormal NONE [facility] Comment on above: Performed By: #### U KAYDEN, UAX #### [address] [address] Muffle Operator: Thor Henrández MD Casts 2 TO 5 HYALINE Normal 0-8 [facility] Comment on above: Result Comment: Refe rence range defined for non-centrifuged specimen. Performed By: #### U KAYDEN, UAX #### [address] [address] Muffle Operator: Thor Hernández MD Epithelial cells LM Ql (Urine sed) 20 TO 50 Normal 0-5 [facility] Comment on above: Performed By: #### U RICHYO, UAX #### [facility] [employer] [address] [place] [address] Muffle Operator: Thor Hernández MD Urine RBC's 0 TO 2 Normal 0-4 [facility] Comment on above: Result Comment: Refe rence range defined for non-centrifuged specimen. Performed By: #### U RICHYO, UAX #### [address] [address] Muffle Operator: Thor Hernández MD Urine WBC's 5 TO 10 Normal 0-5 [facility] Comment on above: Performed By: #### U MICAO, UAX #### [facility] [address] [place] [address] Muffle Operator: Thor Hernández MD AFP, Maternalon 07-28-2023 Determined by Ultrasound Normal [facility] Comment on above: Performed By: #### A AFPM #### [facility] [address] [place] [address] Muffle Operator: Thor Hernández MD [address] [phone] Muffle Operator: Tim Vizcarra MD #### FT4, TSH, FT3 #### [address] [address] Muffle Operator: Thor Hernández MD Due Date SEE NOTE Normal [facility] Comment on above: Result Comment: Resu lts for Estimated Due Date: 01 06 24 Performed By: #### A AFPM #### [address] [address] Muffle Operator: Thor Hernández MD [address] [address] Muffle Operator: Tim Vizcarra MD #### FT4, TSH, FT3 #### [facility] [address] [place] [address] Muffle Operator: Thor Hernández MD Family History No Normal [facility] Comment on above: Performed By: #### A AFPM #### [facility] [address] [place] [address] Muffle Operator: Thor Hernández MD [facility] [address] [place] [address] Muffle Operator: Tim Vizcarra MD #### FT4, TSH, FT3 #### [facility] [address] [place] [address] Muffle Operator: Thor Hernández MD Gestat Age (exact) 16 wks, 4 days Normal [facility] Comment on above: Performed By: #### A AFPM #### [address] [address] Muffle Operator: Thor Hernández MD [address] [phone] Muffle Operator: Tim Vizcarra MD #### FT4, TSH, FT3 #### [address] [address] Muffle Operator: Thor Hernández MD Ins Req Matern Diab No Normal [facility] Comment on above: Performed By: #### A AFPM #### [address] [address] Muffle Operator: Thor Hernández MD [address] [address] Muffle Operator: Tim Vizcarra MD #### FT4, TSH, FT3 #### [address] [address] Muffle Operator: Thor Hernández MD Interpretation Screen Neg Normal [facility] Comment on above: Result Comment: (NOT E) INTERPRETATION: SCREEN NEGATIVE for open spina bifida Neural Tube Defects (NTD) Negative Pre-Test Post-Test Cutoff Neural Tube Defects Risks 1:452 1:3230 1:103 Comments: The risk of an open neural tube defect is less than the twin screening cut-off. This test was developed and its performance characteristics determined by [employer] It has not been cleared or approved by the [place] Food and Drug Administration. This test was performed in a CLIA certified laboratory and is intended for clinical purposes. Performed By: #### A AFPM #### [address] [address] Muffle Operator: Thor Hernández MD [address] [address] Muffle Operator: Tim Vizcarra MD #### FT4, TSH, FT3 #### [facility] Laboratories [address] [place] [address] Muffle Operator: Thor Hernández MD [age] [facility] Comment on above: Performed By: #### A AFPM #### [facility] [address] [place] [address] Muffle Operator: Thor Hernández MD [facility] [address], [place] [id number] Muffle Operator: Tim Vizcarra MD #### FT4, TSH, FT3 #### [address] [address] Muffle Operator: Thor Hernández MD Maternal Race Nonblack [facility] Comment on above: Performed By: #### A AFPM #### [address] [address] Muffle Operator: Thor Hernández MD [facility] [address], [place] [id number] Muffle Operator: Tim Vizcarra MD #### FT4, TSH, FT3 #### [address] [address] Muffle Operator: Thor Hernández MD Maternal Weight 239.0 lbs. [facility] Comment on above: Performed By: #### A AFPM #### [facility] [address] [place] [address] Muffle Operator: Thor Hernández MD [facility] [address] [place] [address] Muffle Operator: Tim Vizcarra MD #### FT4, TSH, FT3 #### [facility] [address] [place] [address] Muffle Operator: Thor Hernández MD MoM for AFP 1.71 Normal [facility] Comment on above: Performed By: #### A AFPM #### [address] [address] Muffle Operator: Thor Hernández MD [facility] [address] [place] [address] Muffle Operator: Tim Vizcarra MD #### FT4, TSH, FT3 #### [address] [address] Muffle Operator: Thor Hernández MD Number of Fetuses Twins Normal [facility] Comment on above: Performed By: #### A AFPM #### [address] [address] Muffle Operator: Thor Hernández MD [address] [id number] Muffle Operator: Tim Vizcarra MD #### FT4, TSH, FT3 #### [address] [address] Muffle Operator: Thor Hernández MD Patient's AFP 46 ng/mL Normal [facility] Comment on above: Performed By: #### A AFPM #### [address] [address] Muffle Operator: Thor Hernández MD [address] [address] Muffle Operator: Tim Vizcarra MD #### FT4, TSH, FT3 #### [address] [address] Muffle Operator: Thor Hernández MD Smoking Unknown [facility] Comment on above: Performed By: #### A AFPM #### [address] [address] Muffle Operator: Thor Hernández MD [address] [place] [address] Muffle Operator: Tim Vizcarra MD #### FT4, TSH, FT3 #### [address] [address] Muffle Operator: Thor Hernández MD Specimen See Note [facility] Comment on above: Result Comment: (NOT E) Initial sample Performed By: [facility] [employer] [address] [place] [address] Turntable Worker: Morro Modi MD, PhD CLIA Number: [id number] Performed By: #### A AFPM #### [address] [address] Muffle Operator: Thor Hernández MD [address] [address] Muffle Operator: Tim Vizcarra MD #### FT4, TSH, FT3 #### [address] [address] Muffle Operator: Thor Hernández MD [facility], [facility] 07-27-2023 Current Smoking INFORMATION NOT PROVIDED [facility] Comment on above: Performed By: #### A AFPM #### [address] [address] Muffle Operator: Thor Hernández MD [address] [address] Muffle Operator: Tim Vizcarra MD #### FT4, TSH, FT3 #### [address] [address] Muffle Operator: Thor Hernández MD [facility] Comment on above: Performed By: #### A AFPM #### [address] [address] Muffle Operator: Thor Hernández MD [address] [address] Muffle Operator: Tim Vizcarra MD #### FT4, TSH, FT3 #### [address] [address] Muffle Operator: Thor Hernández MD Diabetic Negative [facility] Comment on above: Performed By: #### A AFPM #### [address] [address] Muffle Operator: Thor Hernández MD [facility] [address] [place] [address] Muffle Operator: Tim Vizcarra MD #### FT4, TSH, FT3 #### [address] [address] Muffle Operator: Thor Hernández MD Donor Egg INFORMATION NOT PROVIDED [facility] Comment on above: Performed By: #### A AFPM #### [address] [address] Muffle Operator: Thor Hernández MD [address] [id number] Muffle Operator: Tim Vizcarra MD #### FT4, TSH, FT3 #### [address] [address] Muffle Operator: Thor Hernández MD Estimated Due Date 01/06/2024 [facility] Comment on above: Performed By: #### A AFPM #### [address] [address] Muffle Operator: Thor Hernández MD [address] [address] Muffle Operator: Tim Vizcarra MD #### FT4, TSH, FT3 #### [address] [address] Muffle Operator: Thor Hernández MD Family History Negative [facility] Comment on above: Performed By: #### A AFPM #### [address] [address] Muffle Operator: Thor Hernández MD [address] [address] Muffle Operator: Tim Vizcarra MD #### FT4, TSH, FT3 #### [address] [address] Muffle Operator: Thor Hernández MD In Vitro Fertalizat INFORMATION NOT PROVIDED [facility] Comment on above: Performed By: #### A AFPM #### [address] [address] Muffle Operator: Thor Hernández MD [address] [address] Muffle Operator: Tim Vizcarra MD #### FT4, TSH, FT3 #### [address] [address] Muffle Operator: Thor Hernández MD LMP date 2023 [facility] Comment on above: Performed By: #### A AFPM #### [address] [address] Muffle Operator: Thor Hernández MD [address] [address] Muffle Operator: Tmi Vizcarra MD #### FT4, TSH, FT3 #### [address] [address] Muffle Operator: Thor Hernández MD Maternal date 1990 [facility] Comment on above: Performed By: #### A AFPM #### [address] [address] Muffle Operator: Thor Hernández MD [address] [address] Muffle Operator: Tim Vizcarra MD #### FT4, TSH, FT3 #### [address] [address] Muffle Operator: Thor Hernández MD Maternal Weight 239 Normal [facility] Comment on above: Performed By: #### A AFPM #### [address] [address] Muffle Operator: Thor Hernández MD [facility] [address] [place] [address] Muffle Operator: Tim Vizcarra MD #### FT4, TSH, FT3 #### [address] [address] Muffle Operator: Thor Hernández MD Monochorionic Twins Positive Normal [facility] Comment on above: Performed By: #### A AFPM #### [address] [address] Muffle Operator: Thor Hernández MD [address] [address] Muffle Operator: Tim Vizcarra MD #### FT4, TSH, FT3 #### [address] [address] Muffle Operator: Thor Hernández MD Patient Weight Units LBS Normal [facility] Comment on above: Performed By: #### A AFPM #### [address] [address] Muffle Operator: Thor Hernández MD [facility] [address] [place] [address] Muffle Operator: Tim Vizcarra MD #### FT4, TSH, FT3 #### [address] [address] Muffle Operator: Thor Hernández MD Race (Maternal) Normal [facility] Comment on above: Performed By: #### A AFPM #### [address] [address] Muffle Operator: Thor Hernández MD [address] [address] Muffle Operator: Tim Vizcarra MD #### FT4, TSH, FT3 #### [address] [address] Muffle Operator: Thor Hernández MD Repeat Specimen INFORMATION NOT PROVIDED Normal [facility] Comment on above: Performed By: #### A AFPM #### [address] [address] Muffle Operator: Thor Hernández MD [address] [id number] Muffle Operator: Tim Vizcarra MD #### FT4, TSH, FT3 #### [address] [address] Muffle Operator: Thor Hernández MD Valproic/Carbamazep INFORMATION NOT PROVIDED Normal [facility] Comment on above: Performed By: #### A AFPM #### [address] [address] Muffle Operator: Thor Hernández MD [address] [address] Muffle Operator: Tim Vizcarra MD #### FT4, TSH, FT3 #### [address] [address] Muffle Operator: Thor Hernández MD Thyroxine, Freeon 07-27-2023 Thyroxine, Free 1.0 ng/dL Normal 0.92-1.68 [facility] Comment on above: Performed By: #### A AFPM #### [address] [address] Muffle Operator: Thor Hernández MD [facility] [address] [place] [address] Muffle Operator: Tim Vizcarra MD #### FT4, TSH, FT3 #### [address] [address] Muffle Operator: Thor Hernández MD Protein,Tot,[place] [facility] 2023 Creatinine [Mass/Vol] 273.0 mg/dL High 28.0-217.0 [facility] Comment on above: Performed By: #### U RTPRT #### [address] [address] Muffle Operator: Thor Hernández MD Tot Prot. Conc. 21 mg/dL Normal [facility] Comment on above: Result Comment: No n ormal range established. Performed By: #### U RTPRT #### [address] [address] Muffle Operator: Thor Hernández MD TP/Cre Ratio 0.08 Normal [facility] Comment on above: Performed By: #### U RTPRT #### [address] [address] Muffle Operator: Thor Hernández MD T3, Freeon 7 Free T3 [Mass/Vol] 3.40 pg/mL Normal 2.00-4.40 [facility] Comment on above: Performed By: #### A AFPM #### [address] [address] Muffle Operator: Thor Hernández MD [facility] [address] [place] [address] Muffle Operator: Tim Vizcarra MD #### FT4, TSH, FT3 #### [address] [address] Muffle Operator: Thor Hernández MD Thyroid Stim. Horm.on 2023 Thyroid Stim. Horm. <0.01 Low 0.27-4.20 [facility] Comment on above: Performed By: #### A AFPM #### [facility] [address] [place] [address] Muffle Operator: Thor Hernández MD [address] [address] Muffle Operator: Tim Vizcarra MD #### FT4, TSH, FT3 #### [facility] [employer] [address] [place] [address] Muffle Operator: Thor Hernández MD ED Note-Physicianon 05-14-19 ED [...] see dentistry until she is cleared by [facility]. She does not have an appointment for [facility] to next week. She has no OB [...] day(s), # 15 tab(s), Refills(s) 0, Pharmacy: [facility], 160, cm, 05/13/23 11:33:00 EST, Height/Length [...] Oral, q6hr Follow-up With When Contact Information Kids Note In 3 days 05/16/2023 EDT [address] [place] [address]- Business (1) Additional Instructions: Dentistry follow-up Patient [...] made to ensure accuracy, however, inadvertently computerized marine diesel mechanic mistakes may be present. Appropriate healthcare PPE was used in evaluating this patient. Problem List/Past Medical History Ongoing Acute hepatitis C Anxiety Apnea, sleep Dental caries PCOS (polycystic ovarian syndrome) Historical No qualifying data Procedure/Surgical History Delivery. Medications Inpatient ampicillin-sulbacta m additive + Sodium Chloride 0.9% intravenous solution 100 (more content not included)... [facility] Comment on above: Result Comment: Elec tronically Signed By: Greg Stratton PA-C\.br\Date and Time Signed: 05/13/23 12:45 EST\.br\Electronically Co-Signed By: Jonathan Martinez DO\.br\Date and Time Co-Signed: 05/14/23 07:40 EST Consent for Treatmenton Consent for Treatment [id number] EC#1.00TIFF [facility] Discharge Instructionson Discharge Instructions [id number] 53#1.00TIFF Normal [facility] ED Clinical Summaryon 2023 ED Clinical Summary [address] [address] ED Clinical Summary Person Information Name: TIA MONROE/[facility] Age: 33 Years : 1990 Sex: Female Language: Honduran PCP: Linda Sheppard DO Marital Status: Visit [...] 13:02:19 05/13/2023 13:02:19 05/13/2023 13:02:19 ADDRESS: [address] [id number] PHYS DOC NOTES: MEDICAL INFORMATION: Prescriptions Given: New Medications [facility], [address], [place] [id number], [phone] oxycodone (oxyCODONE 5 mg Tab) 1 Tablets [...] Dental Abscess Follow up: With: Address: When: [place] [id number] Business (1) In 3 days 05/16/2023 Comments: Dentistry follow-up DIAGNOSIS: Dental abscess Normal [facility] ED Patient Education Noteon 05-13-2023 [...] these instructions at home: Medicines ? Take oxjq-qrn-lmjvygt and prescription medicines only as told by [...] mouth. ? (more content not included)... Normal [facility] ED Patient Summaryon 024 ED Patient Summary [address] [address] Patient Discharge Instructions Person Information Name: TIA MONROE Age: 33 Years Arrival Date: 05/13/2023 11:19:01 Discharge Diagnosis: Dental abscess Primary Care Physician: Linda Sheppard DO Provider Information Primary Provider: Jonathan Martinez DO Advanced Medical Office Rep:Greg Stratton PA-C The exam and treatment you received in the Emergency Department were for an urgent problem and are not intended as complete care. It is important that you follow up with a doctor, nurse practitioner, or physician?s assistant professor of biology for ongoing care. If your symptoms become worse or you do not improve as expected and you are unable to reach your usual health care provider, you should return to the Emergency Department. We are available 24 hours a day. TIA MONROE has been given the following list of patient education materials, prescriptions and follow-up instructions: Follow-up Instructions: With: Address: When: [employer] [address] [address] Business (1) In 3 days 05/16/2023 Comments: Dentistry follow-up In the event that this physician does not participate in your insurance network, please consult with your insurance company to find a nearby participating provider. Patient Education Materials: Dental Abscess A MESSAGE TO ALL PATIENTS REGARDING OPIOIDS PRESCRIPTION OPIOIDS: WHAT YOU NEED TO KNOW Prescription opioids can be used to help relieve sykoxnpw-wx-yovicn pain and are often prescribed following a [...] be struggling with addiction, tell your health director of managed care and ask for guidance or call [facility] National Helpline at 3-215-7 (more content not included)... Normal [facility] Discharge Instructionson Discharge Instructions [id number] 40 [id number] 819#1.00TIFF Normal [facility] ED Clinical Summaryon 2023 ED Clinical Summary [address] [address] ED Clinical Summary Person Information Name: TIA MONROE Maria Elena/[facility] Age: 33 Years : 1990 Sex: Female Language: Honduran PCP: Linda Sheppard DO Marital Status: Visit [...] 23:59:00 05/11/2023 23:59:00 05/11/2023 23:59:00 ADDRESS: [address] [facility] [id number] PHYS DOC NOTES: MEDICAL INFORMATION: Prescriptions Given: New Medications [facility], [address], [place] [id number], [phone] amoxicillin-clavula cindi (Augmentin 875 mg oral tablet) [...] Medication PATIENT EDUCATION INFORMATION: Instructions: Dental Pain, Sypf-gv-Hlpa Follow up: With: Address: When: Linda Sheppard DO, [address] [place] [address] In 3 days 05/14/2023 DIAGNOSIS: 1:Pain, dental; 2:Infected dental caries; 3:First trimester ; Periapical abscess without sinus Normal [facility] ED Note-Physicianon 05-12-19 ED Note-Physician Basic Information Time Seen: Selena HALL, Violet E. 05/11/2023 22:59 Chief Complaint pt arrives for c/o dental pain on the right upper side. states cannot see her denitist d/t being . pt states seen in [facility] and started on amoxcillin. History of Present Illness Patient is a 7-week 33-year-old female with history of PCOS that presents to the ED with her for evaluation of dental pain. Patient says pain started on Tuesday. She localizes it to the right upper jaw, radiates into her face ear and cheek. She went to [place] [facility] yesterday and was initiated on amoxicillin [...] day(s), # 14 tab(s), Refills(s) 0, Pharmacy: [facility], 160, cm, 05/11/23 21:53:00 EST, Height/Length Dosing, 110, kg, 05/11/23 21:53:00 EST, Weight Dosing chlorhexidine topical, 0.018 gm, 15 mL, Oral, BID, 480 mL, Refill(s) 0, (swish and spit; do not swallow), [facility], 160, cm, 05/11/23 21:53:00 EST, Height/Length Dosing, 110, kg, 05/11/23 21:53:00 EST, Weight Dosing (more content not included)... Normal [facility] Comment on above: Result Comment: [...] these instructions at home: Medicines ? Take pfsy-nql-jfbavtu and prescription medicines only as told by [...] to the area. Brushing your teeth ? [place] your teeth twice a day using a [...] when you eat or drink. ? Take yngo-cni-zcvbewn and prescription medicines only as told by [...] Reviewed: 11/26/2020 Elsevier Patient Education ? 2022 [employer] Normal [facility] ED Patient Summaryon 024 ED Patient Summary [address] [address] Patient Discharge Instructions Person Information Name: TIA MONROE Age: 33 Years Arrival Date: 05/11/2023 21:25:54 Discharge Diagnosis: 1:Pain, dental; 2:Infected dental caries; 3:First trimester ; Periapical abscess without sinus Primary Care Physician: Linda Sheppard DO Provider Information Primary Provider: Zac Fields M.D. Advanced Medical Office Rep:Violet Walters PA-C The exam and treatment you received in the Emergency Department were for an urgent problem and are not intended as complete care. It is important that you follow up with a doctor, nurse practitioner, or physician?s assistant professor of biology for ongoing care. If your symptoms become [...] Instructions: With: Address: When: Linda Sheppard DO [address] [place] [address] [address] , [facility] [address] [place] [address] In 3 days 05/14/2023 In the event that this physician does not participate in your insurance network, please consult with your insurance company to find a nearby participating provider. Patient Education Materials: Dental Pain, Hcbx-zd-Vkrm A MESSAGE TO ALL PATIENTS REGARDING OPIOIDS PRESCRIPTION OPIOIDS: WHAT YOU NEED TO KNOW Prescription opioids can be used to help relieve jyunpuwr-mq-phghts pain and are often prescribed following a [...] be struggling with addiction, tell your health director of managed care an (more content not included)... Normal [facility] Consent for Treatmenton Consent for Treatment [id number] 96#1.00TIFF [facility] Progesteroneon 12-28-2022 Progesterone 12.60 ng/mL [facility] Comment on above: Result Comment: Female: Follicular phase <0.19 ng/mL Ovulation phase 0.06-4.14 ng/mL Luteal phase 4.11-14.5 ng/mL Postmenopausal <0.13 ng/mL Performed By: #### P NICKY #### [employer] [facility] [place] [address] Muffle Operator: Thor Hernández MD Progesteroneon 11-24-2022 Progesterone 7.18 ng/mL High 0.0-0.15 [facility] Comment on above: Result Comment: Female: Follicular phase <0.19 ng/mL Ovulation phase 0.06-4.14 ng/mL Luteal phase 4.11-14.5 ng/mL Postmenopausal <0.13 ng/mL Performed By: #### P NICKY #### [employer] [address] [place], [place] [id number] Muffle Operator: Thor Hernández MD , Urineon 3 HCG ( test) Ql (U) Negative NEGATIVE [facility] XR ANKLE RIGHT (MIN 3 VIEWS) on 09-04-2022 FINDINGS/IMPRESSION : No acute displaced fracture identified. Ankle mortise is symmetric. There is a 1 mm tiny calcified body which is remote appearing near the distal fibular tip. Minimal ankle soft tissue edema. [facility] EXAM: XR ANKLE RIGHT (MIN 3 VIEWS) INDICATION: Reason for exam:->swelling COMPARISON: None. TECHNIQUE: Radiographs as described above [facility] Bettye Johnson MD - 09/04/2022 EXAM: XR ANKLE RIGHT (MIN 3 VIEWS) INDICATION: Reason for exam:->swelling COMPARISON: None. TECHNIQUE: Radiographs as described above IMPRESSION: FINDINGS/IMPRESSION : No acute displaced fracture identified. Ankle mortise is symmetric. There is a 1 mm tiny calcified body which is remote appearing near the distal fibular tip. Minimal ankle soft tissue edema. [facility] Radiology Study observation (narrative) [facility] XR ANKLE RIGHT (MIN 3 VIEWS) Ordered By: Bettye Johnson on 09-04-2022 [facility] Work Phone: Coding Summary.on 07-09-2022 Coding Summary. CD:[id number] bWw+PGhlYWQ+EE8RNUY yK79npNMbwV7kL2GFEX lOSywgQVBQTElOSyIgb uNzVN3cqXYnEPOr IC8+FF8hWKUeMccqiJI td5Z4xHJ4H96jnc0kLC tlrHH4IEXdGeQjutdeb 7mclVy6RGqnSjvbAzBs PAQlqT72NTZ3nY58Gl2 5sGYxpWQli5rugGo5Bv BmFECoJAE0pOzoTLbhv 7AwRGIeW84vgMRhb8J6 IGNvbGxhcHNlOyBlbXB 8rW6zEDhhxssxb8sksk yiVbm0bv10kLAkf4Z3u VP4L4PyzkC0FUQagYPd QijbkXDCkQ9boivqn8t osomcQfTfWMSdMNo0OE e8SEPhcCkcUrIeJA61P KE6CDDvujHpJ0SlYWNf vSorTuF5y4M9Ck7ZI3Z GYcbnA9RSGGUDSMmtkA Q+AY35ht64F9ZkVutlQ gt2XNLtATR7yVL4uE9w CBPpIHhgf9K0uZG7U8Z mzjGfra3bw8jqOVWeRF ojL96yzOKig3Z6DFLwp LE8ZFApcZzvHiRunW88 Oyc+GHDqoOfzy7QsWtv xl8nbt2esuJs6FzmeJK XwslBtjPvbCOC6r3KnT q2dNZMbwCG7dZN3lA1r KcQiEjE7UKsnI284FnS ydJAzGikhT14sB1XyrV A+JUAfKlq0FSUloZkcJ D2hC2EyUIRgfudhnZJw mWdhQJ1uGVPidhbrICR qjC3vMDHhD5y0NhTyPk M5NJtnC5VmKUWkcpwaZ v46nX0uQoIrQeV6BHio X7CcfxW7WQPwfGKvKOv bHFU6W55uy2K4QSQiBG QhJTF9xVU3xS3kjLqgn jogbGVmdDsgdmVydGlj ZVkmMCkbC129PIMwxZz nPkNvZGluZyBEYXRlOi AgMDUvMDUvMjAyMzwvd GQ+KCGmTSY0xJtvHCGk zSWkPVukYj8zyBylpUs dGN0eJCXasrrtUTEpqQ 4uAZEkwXBueYooWS0hQ TSsugiye336UdXqEQZ1 ASToxDDyN3HklD1zHxQ hTLTeLHRiY4XgtMZxQM gfX539AZxySlT5CZQmv uXoE4SnGYQyiYtjQrK0 o5Q4Dy1Nq8UwwqycA9C thZIzMiUhGzhlAKb7B6 RkPjwvdHI+FS15CIEzH D23QAz2FRI9cEyqVNuf XDZjA4VhrX6nRwYaKDU kZGRkOyc+PHRhYmxlIH dpZHRoPScxMDAlJyBzd JbzNT8oIb6eTMMxZQAi eDelyDFfVeLzr7caZGJ sHBscKN2wpDhnL4SdgA Y1FZVxw0t8Xr65O28yC 3JvdXA+NDTxcSS3eZT6 iK4hCiFvTsR1GHweA65 8CiNovADzSmnsz9exq1 kguZz3NwF5YDYuqnJzy OayMZZ0t0NvAd45J58g IHdpZHRoPSIxNSUiIHZ atZmydg2wgW3iKt3+PG SymQA9qJH8jQ2eQsIeQ pH0GJpuA898QbWjoLRq Amhkv8rvo8shvTy6GmT cDPWutrOpoDjlOGY4w1 SaCa95P7TvcFnfj1NaM lq2jf63lSOht6P4hVP5 W7CtQNNdynpjhLVzlSg jGM4pXTKhmrtpCIAzqQ 9fRDVwX9p1DlWjQgF9X JvtK1ZqzxW7ATGxkKRp RBPtyDROtS2uukfzp0n adqmlQbEsWPUmWTm8XO j3MPHhkXxnLpTtRVA5O mC1QQW4oMBigW5fjZck ytffoT5hLlt+EKH4jLN blHXXTH5vXnmsgFI+PH ZpPQT3yLwjPCihQIPfw X1iVLSoU2l1CwByWyW1 XFcuU5JrrgF0TABzlNK kZYNfjNCZxE5yjmcdm9 xhsfhoBuZnYBZlEZi4W Or8CAZoaIqnFrGyXBL8 KjP4HXV1iAZzoO8ckDk woczqaH6hBlj+QmlydG jiQOI3RHn6A8DwCgj9Q CJrwVilOP9pyBZvRBxr Sx0ulKxwtYujCM6uASM sujaic138JeTrr0ceUH BkpAFyVDeoFNR9C99mp 2N1UKSfXMFaEBL0aGY8 nG4ugMrdhjakfXUmdTu gdmVydGljYWwtYWxpZ2 64OPVjdErhCeWzVCt2C 6AgPqu7GPDcrJlpFG8l lLHwUWkuVa0veFiosQn qUQ8xUPSoxfaki853Bm Jny5siWLHoiGLaGSakQ UD3U58fh8R0ELWaHGBt QFI8uKU0gP5jeAyrilu gbGVmdDsgdmVydGljYW oiULisV658OYAwyElnS gDmyQv5V8UwVaa6PMDn hLkvSI9beBFgAIvdEn0 lwZunfCwbKM6tICNtaj fpr208FkPxh2wyDGSor PFgERfrYEP3S76bx2O1 QREtFMCcJVS0nVJ1iW7 hbGlnbjogbGVmdDsgdm HhpDrgCLioDJudH584H HRvcDsnPlBhdGllbnQg JZbhOYm1E2LkDvdqkGD +BN14VICiXD63zCJvwX Tvl3uunQv8QiWiZJTjW PE4iIxpHDmsl1TwCWXh E22irRUyr2H8BDUgoPh rmECySsZxzGX9zR4dZQ xeiikkj4aytpisNrsnm 1fpko24rY79A84vAHul ZHRoPSIzMCUiIHZhbGl wzp8snF0kOw4+PGNvbC F3jWH3nX7gKDMpAsX3H OqqT437OuWmuGLwOfit l0lfg5nzyTj5QeS5PNL bjnIryYowOCT5j0KhRg 09B94hJYtpSVMnXRFuM VAcGIZixVcacw8skC1p Ii8+SZFozJD0dTE8mN4 xXnJkOxD4YSrvS633Lb VjyBXaBlwvX53oW2Edg XA+ZGOlBnq1PYRjoUxg JU2alGSuUFecEj5eCIX 4PvKvHnTlCTtxL1EuON TwcawvlwqkvRO0YRKrO ONxmK70Qq6eeMtnJJUq gMSBhP2homagt8sidmp mVgKaLQKlJCx2QQk6OP WrzLvoJjHaRMW8RcI7D ZI7sYFywK5unPmmmgjg mP8pZ1VjIUQqzbwkSe5 1kO3oFqZpXyK4POyzXk c+Ny3ATfHKShqjHlRJS kRJRTwvdGQ+PHRkIHN0 mRkpNKnhRSIqjR9sANF oL4a4KsMkTxM2MLwrV2 VaUTTdudqpUw67hD6yY eDjVtO8DTtmW9RiedH8 TGZwqNAvVYxiZRW3X26 bj5I6ABJaYARmHNG8eM E4gR7jiEmgwumhcHUae DsgdmVydGljYWwtYWxp G838CRImfAsgWbOxXxH 2LeQ7HAO2Q0IjSpu1MS GosDfuAY4fkTSpOVmhZ h0fxHpmtAulER4yHEJm etrdTYEglA2rLHSdfKG wrQayEG8lXHIqnvarv5 60AoZjSDI2HLQwiMXyX 7JbxH6nHmSeEWGaEYJg Z8HuwPTvOTygR293SHo dPqH2HNXttzJhD4CfKC WwwDgxPlC8j6X2Hm1xB iBZZWFyczwvdGQ+PHRk JGW0qGygTOfwBNRkvD9 iCTPpP9x2QvNvPcI8KD igO7QvFDLoesnnNn15o W1nWtAqAzC6NVjeT8Qf yzE3OLJomEVmIVjvOAI 0Q29nb6B0NTBbTTJoWD B9zEU6gH0yyWfyfrzhl GVmdDsgdmVydGljYWwt UFspN214MZEfeTrnHlE lbWFsZTwvdGQ+PHRkIH X5yHcdGVdrJJBetN7wI MFiO1f3QjWbOgK9IVal U7IdSEWwzukaYr98kF6 oIoXaXbP1IBzxO5Zaxx A9PFRwsMEdOPlcTLN0E 45lo1R8MLNlGHGrTUT1 fTY9bU7vzUfunqwhsDR mdDsgdmVydGljYWwtYW ucW184GVImoQvlIvBat M6vLSSvKPqjjRNquRge dGQ+MD83zm51R1OkEml cZxv9BGVzESP7hEY2sV 7qMFMxAIwfl4W4xKA8H 0RcymTzkm3jq9sqJDKo HDpmD49cgCChj1M8LFE bpIF5PMOtvIruCgVpmQ 93Oyc+YKWpxNrfx9KkK uiqo4fmz6jrtYa3PsGa LAWhulQclDdcGNC1n3S bKg85Y51uTVsbZGLiXI LiJQMwCPNzkJwilb5pf G9wIi8+JMLbyJG8hEX3 mC3sAnRfTnN8FMwjH37 7IcIibCOtTrkwd0cdo8 fkdIm2QgXhFJGjnmShi XxjTHG8p4TnBd16M5Mh mNwhe3UgQma7ls70gSX xt0W2dTX5E3LcDQYlau ninKPrfOwrDE5mJBEsx jemBGVuzQ7xXIFyM2h7 FyPyPbR7SMroO6OypjJ 6IGJvbGQgMTBwdCBUaW 6kiflgr7bdfeuqPeBkW YRjWMf9PMx0BXNfgRji LhCcQUL2AyW8HZO1sFY vnV9puWommtatmN4gIu c+SIp5t9iujKTzZR9ks AX5DC31GK40bBYim4P4 hKY6V0LpQZSzohajsey pwDY5PZMkRCNxuI44Ds 3ejIboNv5tJYDaLHD9V ZEtsGHnQ3CplC4jQvDz MDYoLTZdI2WqeURxIBx rM005HJshWuW8MXDifc HfG4DnONEjlUjyPfJ9o 6X0Dx8BST93PO68YR42 jNMvf2Q8qTI7J8JlBHY rqswjeyoueEO6DUJwCN MfoJ08Fb2saSbmEy7nJ DVjOPU9ONDpoDYtJ5Dg mP2uYyLpPIHeZTWcQ9S njEWhJQdkS322JKabCu O0GYCktzXsS5AkEZKah McyPqD4t6X7Fz0OQj13 JP76PY94fQQbk5O6rWI 5M2PhEZXlaubvpdbcfF Y5KMNeXCPpyC59Ij9su HheFf9aYUHmJEN0GFOd jZSrV6IjdB6cToWiDLH zIVBjM1RazKQyWXpgQ8 98MUbpMoK0TXUsrsWbZ 5KvKHTguSllGdW7e5O7 Zg4WOZcqgbd1I0CqTtj vdHI+XR78SLNfNF16pO NdeRGus2fqvCj0MjPxI OMdSOC4oIvrZMcjh5Oy EJOsW30k (more content not included)... Normal [facility] Consultation Noteon 07-07-19 Consultation Note [...] Problems Acute hepatitis C / SNOMED CT 225670253 / Confirmed Anxiety / SNOMED CT 15008607 / Confirmed Apnea, sleep / SNOMED CT 546526936 / Confirmed Dental caries / SNOMED CT 534687131 / Confirmed PCOS (polycystic ovarian syndrome) / SNOMED CT 918736057 / Confirmed Histories Past Medical History: Active Dental caries (994566831) Family History: No family history items have [...] Patient agrees with plan of care. Normal [facility] Comment on above: Result Comment: Elec tronically Signed By: Bing PEDRAZA, Todd Spencer.br\Date and Time Signed: 07/06/22 13:28 EDT DHEA SERUMon 07-04-2022 Dehydroepiandrosterone (DHEA) 220 ng/dL Normal 31-701 [facility] Comment on above: Performed By: #### Vijaya MOER. ####[facility] [address] [place], [place] [address]HbSelwyn Sanchez DHEA-SULFATEon 06-30-2022 DHEA-Sulfate 106.0 ug/dL Normal 84.8-378.0 [facility] Comment on above: Performed By: ###Jessica TATUM ####[facility] [address] [place] [address]Dr. Nito Sanchez FSHon 06-30-2022 FSH 6.6 mIU/mL Normal [facility] Comment on above: Result Comment: Adul t Female: Follicular phase 3.5 - 12.5 Ovulation phase 4.7 - 21.5 Luteal phase 1.7 - 7.7 Postmenopausal 25.8 - 134.8 Performed By: #### L BCFS #### [facility] [address] [place] [address] Dr. Nito Sanchez LUTEINIZING HORMONE (LH)on 0 06-30-2022 LH 18.9 mIU/mL Normal [facility] Comment on above: Result Comment: Adul t Female: Follicular phase 2.4 - 12.6 Ovulation phase 14.0 - 95.6 Luteal phase 1.0 - 11.4 Postmenopausal 7.7 - 58.5 Performed By: #### L BCLH #### [facility] [address] [place] [address] Dr. Nito Sanchez PROLACTINon 06-30-2022 Prolactin 5.3 ng/mL Normal 4.8-23.3 [facility] Comment on above: Performed By: #### P ROLAC #### [facility] [address] [place] [address] Dr. Nito Sanchez CBC AUTO DIFFon 06-29-2022 BASO # 0.1 103/ul Normal 0.0-0.1 [facility] Comment on above: Performed By: #### C BC #### [facility] [address] [place] [address] Dr. Nito Sanchez Basophils/100 WBC (Bld) 0.5 % Normal 0.2-2.0 [facility] Comment on above: Performed By: #### C BC #### [facility] [address] [place] [address] Dr. Nito Sanchez EO # 0.2 103/ul Normal 0.0-0.7 [facility] Comment on above: Performed By: #### C BC #### [facility] [address] [place] [address] Dr. Nito Sanchez Eosinophils/100 WBC (Bld) 1.6 % Normal 0.9-7.0 [facility] Comment on above: Performed By: #### C BC #### [facility] [address] [place] [address] Dr. Nito Sanchez Erythrocyte distribution width (RBC) [Ratio] 13.6 % Normal 11.0-15.0 [facility] Comment on above: Performed By: #### C BC #### [facility] [address] [place] [address] Dr. Nito Sanchez Hematocrit (Bld) [Volume fraction] 39.7 % Normal 36.0-48.0 [facility] Comment on above: Performed By: #### C BC #### [facility] [address] [place] [address] Dr. Nito Sanchez Hemoglobin (Bld) [Mass/Vol] 13.1 g/dL Normal 12.0-16.0 [facility] Comment on above: Performed By: #### C BC #### [facility] [address] [place] [address] Dr. Nito Sanchez IG # 0.05 10e3/ul Critically high 0.00-0.03 [facility] Comment on above: Performed By: #### C BC #### [facility] [address] [place] [address] Dr. Nito Sanchez IG % 0.5 % Normal 0.0-0.5 [facility] Comment on above: Performed By: #### C BC #### [facility] [address] [place] [address] Dr. Nito Sanchez LYMPH # 2.6 103/ul Normal 1.2-3.8 [facility] Comment on above: Performed By: #### C BC #### [facility] [address] [place] [address] Dr. Nito Sanchez Lymphocytes/100 WBC (Bld) 25.3 % Normal 20.5-60.0 [facility] Comment on above: Performed By: #### C BC #### [facility] [address] [place] [address] Dr. Nito Sanchez MANUAL DIFF REQ NO Normal [facility] Comment on above: Performed By: #### C BC #### [facility] [address] [address] [address] Nito Sanchez MCH (RBC) [Entitic mass] 27.1 pg Normal 26.7-34.0 [facility] Comment on above: Performed By: #### C BC #### [facility] [address] [place] [address] Dr. Nito Sanchez MCHC (RBC) [Mass/Vol] 33.0 g/dL Normal 29.9-35.2 [facility] Comment on above: Performed By: #### C BC #### [facility] [address] [place] [address] Dr. Nito Sanchez MCV (RBC) [Entitic vol] 82.2 fL Normal 81.0-99.0 [facility] Comment on above: Performed By: #### C BC #### [facility] [address] [place] [address] Dr. Nito Sanchez MONO # 0.5 103/ul Normal 0.3-0.8 [facility] Comment on above: Performed By: #### C BC #### [facility] [address] [place] [address] Dr. Nito Sanchez Monocytes/100 WBC (Bld) 5.0 % Normal 1.7-12.0 [facility] Comment on above: Performed By: #### C BC #### [facility] [address] [place] [address] Dr. Nito Sanchez NEUT # 6.9 103/ul Critically high 1.4-6.5 [facility] Comment on above: Performed By: #### C BC #### [facility] [address] [place] [address] Dr. Nito Sanchez Neutrophils/100 WBC (Bld) 67.1 % Normal 43.0-75.0 [facility] Comment on above: Performed By: #### C BC #### [facility] [address] [place] [address] Dr. Nito Sanchez Platelet mean volume (Bld) [Entitic vol] 10.0 fL Normal 9.5-13.5 [facility] Comment on above: Performed By: #### C BC #### [facility] [address] [address] [address] Nito Sanchez PLT 313 103/ul Normal 150-450 [facility] Comment on above: Performed By: #### C BC #### [facility] [address] [place] [address] Dr. Nito Sanchez RBC 4.83 106/ul Normal 4.20-5.40 [facility] Comment on above: Performed By: #### C BC #### [facility] [address] [place] [address] Dr. Nito Sanchez WBC 10.3 103/ul Normal 4.0-11.0 [facility] Comment on above: Performed By: #### C BC #### [facility] [address] [place] [address] Dr. Nito Sanchez Consent for Treatmenton 06-06 Consent for Treatment [id number] 650#1.00CD:127 Normal [facility] FREE T4on 06-29-2022 Free T4 [Mass/Vol] 1.01 ng/dL Normal 0.76-1.46 [facility] Comment on above: Performed By: #### F T4 #### [facility] [address] [place] [address] Dr. Nito Sanchez GLYCOHEMOGLOBIN A1Con 2022 ADA RECOMMENDATION SEE BELOW Normal [facility] Comment on above: Result Comment: ADA RECOMMENDED LIMIT 4.0 - 6.0 ADA THERAPEUTIC TARGET < 7.0 ACTION SUGGESTED > 7.0 Performed By: #### A 1C #### [facility] [address] [place] [address] Dr. Nito Sanchez Glucose [Mass/Vol] 108 mg/dL Normal [facility] Comment on above: Performed By: #### A 1C #### [facility] [address] [place] [address] Dr. Nito Sanchez HbA1c (Bld) [Mass fraction] 5.4 % Normal 4.5-6.2 [facility] Comment on above: Performed By: #### A 1C #### [facility] [address] [place] [address] Dr. Nito Sanchez HIPAA Forms Officeon 023 HIPAA Forms Office [id number] 602#1.00CD:127 Normal [facility] Legal Correspondence Officeo n 06-29-2022 Legal Correspondence Office [id number] 270#1.00CD:127 Normal [facility] Legal Correspondence Office [id number] 787#1.00CD:127 Normal [facility] Office/Clinic Note-Physician on 06-29-2022 Office/Clinic Note-Physician [id number] 515#1.00CD:127 Normal [facility] Orders Officeon 06-29-2022 Orders Office [id number] 642#1.00CD:127 [facility] PREG QUANT HCGon 06-29-2022 HCG QUANT 1 mIU/mL Normal [facility] Comment on above: Performed By: #### T BERNICE, PREGQNT #### [facility] [address] [place] [address] Dr. Nito Sanchez HCG RANGE SEE BELOW Normal [facility] Comment on above: Result Comment: 5-50 0.2-1 WEEK 50-500 1-2 WEEKS 100-5,000 2-3 WEEKS 500-10,000 3-4 WEEKS 1,000-50,000 4-5 WEEKS 10,000-100,000 5-6 WEEKS 15,000-200,000 6-8 WEEKS 10,000-100,000 2-3 MONTHS Performed By: #### T SH, PREGQNT #### [facility] [address] [place] [address] Dr. Nito Sanchez Patient Correspondenceon Patient Correspondence [id number] 946#1.00CD:127 Normal [facility] Patient Correspondence [id number] 137#1.00CD:127 Normal [facility] Patient Correspondence [id number] 273#1.00CD:127 Normal [facility] Patient Correspondence [id number] 879#1.00CD:127 Normal [facility] Patient Correspondence [id number] 956#1.00CD:127 Normal [facility] Patient History Officeon Patient History Office [id number] 983#1.00CD:127 Normal [facility] Patient History Office [id number] 721#1.00CD:127 Normal [facility] Radiology Outside Office Route Aide yon 06-29-2022 Radiology Outside Office Copy [id number] 142#1.00CD:127 Normal [facility] TSHon 06-29-2022 TSH 0.848 uIU/mL Normal 0.358-3.740 [facility] Comment on above: Performed By: #### T , PREGQNT #### [facility] [address] [place] [address] Dr. Nito Sanchez US PELVIS AND TRANSVAGon [...] by: BETTYE DANIELS Date: 2022-06-29 15:17 Normal [facility] PAP ACOG PANEL 2: 30 to 65on 06-19-2022 . . Normal [facility] Comment on above: Result Comment: Perf ormed at: WB Performed By: #### 4 [id number] #### [facility] [address] [address] [address] Nito Sanchez Age Gdln ACOG Testing - [facility] Comment on above: Performed By: #### 4 [id number] #### [facility] [address] [address] [address] Nito Sanchez DIAGNOSIS: Comment Normal [facility] Comment on above: Result Comment: NEGA TIVE FOR INTRAEPITHELIAL LESION OR MALIGNANCY. Performed at: WB Performed By: #### [id number] #### [facility] [address] [address] [address] Nito Sanchez HPV Aptima Negative Normal Negative [facility] Comment on above: Result Comment: This nucleic acid amplification test detects fourteen high-risk HPV types (16,18,31,33,35,39,45,51,52,56,58,59,66,68) without differentiation. Performed at: =G Performed By: #### 4 [id number] #### [facility] [address] [address] [address] Nito Sanchez HPV Genotype Reflex Comment Normal [facility] Comment on above: Result Comment: Crit eria not met, HPV Genotype not performed. Performed at: WB Performed By: #### 4 [id number] #### [facility] [address] [address] [address] Nito Sanchez Methodology: Comment Normal [facility] Comment on above: Result Comment: This liquid based ThinPrep(R) pap test was screened with the use of an image guided system. Performed at: WB Performed By: #### 4 [id number] #### [facility] [address] [address] [address] Nito Sanchez Note: Comment Normal [facility] Comment on above: Result Comment: The Pap smear is a screening test designed to aid in the detection of premalignant and malignant conditions of the uterine cervix. It is not a diagnostic procedure and should not be used as the sole means of detecting cervical cancer. Both false-positive and false-negative reports do occur. . Performed at: WB Performed By: #### 4 [id number] #### [facility] [address] [address] [address] Nito Sanchez Performed by: Comment Normal [facility] Comment on above: Result Comment: Nanda Treadwell, Circular Knife Machine Cutter (ASCP) Performed at: WB Performed By: #### 4 [id number] #### [facility] [address] [place] [address] Dr. Nito Sanchez Specimen adequacy: Comment Normal [facility] Comment on above: Result Comment: Sati sfactory for evaluation. Endocervical and/or squamous metaplastic cells (endocervical component) are present. Performed at: WB Performed By: #### 4 [id number] #### [facility] [address] [address] [address] MAXILLOFACIAL WO CONTRAST on 05-11-2022 Recent extraction of the right mandibular and maxillary second molar teeth with presence of air in the respective tooth sockets. No evidence of edema in the sublingual space or the buccal space Probable periapical abscess involving the right maxillary premolar tooth adjacent to the first molar tooth. [facility] RIS CONSOLIDATED EXAM: CT MAXILLOFACIAL WO [...] visualized intracranial contents show no acute process. [facility] Phil Romero MD - 05/11/2022 EXAM: [...] tooth adjacent to the first molar tooth. [employer] Work Phone: Radiology Study observation (narrative) [employer] Work Phone: CT MAXILLOFACIAL WO CONTRAST Ordered By: Phil Mary on 05-11-2022 [employer] Work Phone: Urine Preg (Lab)on 3 Beta HCG ( test) Ql (U) Negative NEGATIVE [employer] HCG, Quantitative, on 03-29-2022 hCG Quant NINF [employer] Comment on above: Non-preg premeno <=5 Postmeno <=8 Male <=3 If HCG results do not concur with clinical observations, additional testing to confirm results is recommended. [employer] COVID-19, Rapidon 07-22-2021 SARS-CoV-2 (COVID-19) RNA KALPESH+probe Ql (Unsp spec) Not detected Not Detected [facility] Comment on above: Rapid NAAT: The specimen [...] management decisions. Fact sheet for Healthcare Providers: https://www.fda.gov/media/579020/download Fact sheet for Patients: https://www.fda.gov/media/995009/download Methodology: Isothermal Nucleic Acid Amplification Specimen Description .NASOPHARYNGEAL [facility] Strep Screen Group A Throato n 07-22-2021 S. pyogenes Ag Ql (Throat) Negative NEGATIVE [facility] Comment on above: Rapid Strep A negati ve. A negative Rapid Group A Strep Screen result does not rule out the possibility of Group A Streptococci in the specimen. A Group A Strep DNA test is available upon request. Source .THROAT [facility] MR LUMBAR SPINE WITHOUT CONT [facility] 06-17-2021 MR LUMBAR SPINE WITHOUT CONTRAST [...] foraminal stenosis. 2. No fracture or spondylolisthesis. [facility] Workstation ID: [id number] Dictated by: JONATHAN LINARES on TueJun 18, 2021 11:51:00 AM EDT Transcribed by: ZULMA CARDENAS on TueJun 18, 2021 11:58:13 AM EDT Finalized by: JONATHAN LINARES on TueJun 18, 2021 12:35:45 PM EDT [facility] Comment on above: Order Comment: Injur y/Trauma or Illness?:Illness/Other How long have you had these symptoms (acute/chronic)?:Chronic Reason for exam?:LBP AND bilat hip pain x years, nki Type of Exam?:Subsequent/Follow-up Additional signs and symptoms?:. CBC panel Auto (Bld)on 04-16 Erythrocyte distribution width (RBC) [Entitic vol] 14.0 % 11.6 - 14.8 % [facility] Hematocrit (Bld) [Volume fraction] 38.6 % 36.0 - 46.0 % [facility] Hemoglobin (Bld) [Mass/Vol] 12.1 g/dL 12.0 - 16.0 g/dL [facility] Interpretation and review of laboratory results Abnormal [facility] MCH (RBC) [Entitic mass] 25.4 pg Low 26. 0 - 34.0 pg [facility] MCHC (RBC) [Mass/Vol] 31.3 g/dL 31.0 - 37.0 g/dL [facility] MCV (RBC) [Entitic vol] 81.1 fL 80.0 - 100.0 fL [facility] Platelet mean volume (Bld) [Entitic vol] 10.0 fL 9.4 - 12.4 fL [facility] Platelets (Bld) [#/Vol] 379 10*3/uL [facility] RBC (Bld) [#/Vol] 4.76 10*6/uL [facility] WBC (Bld) [#/Vol] 9.85 10*3/uL [facility] Comprehensive metabolic 2000 panelon 04-16-2021 Albumin [Mass/Vol] 3.7 g/dL 3.2 - 5.2 g/dL [facility] ALP [Catalytic activity/Vol] 95 U/L 40 - 140 U/L [facility] ALT [Catalytic activity/Vol] 36 U/L 14 - 65 U/L [facility] Anion gap [Moles/Vol] 11 mmol/L 10 - 2 0 mmol/L [facility] AST [Catalytic activity/Vol] 22 U/L 0 - 45 U/L [facility] Bilirubin [Mass/Vol] 0.3 mg/dL 0.0 - 1 .3 mg/dL [facility] Calcium [Mass/Vol] 9.3 mg/dL 8.4 - 10. 2 mg/dL [facility] Chloride [Moles/Vol] 105 mmol/L 98 - 10 8 mmol/L [facility] Creatinine [Mass/Vol] 0.68 mg/dL 0.40 - 1.10 [facility] GFR/1.73 sq M.predicted CKD-EPI (S/P/Bld) [Vol rate/Area] 117 >=60 mL/min/1.73 m2 [facility] Glucose [Mass/Vol] 76 mg/dL 65 - 99 mg/dL [facility] HCO3 [Moles/Vol] 26 mmol/L 21 - 32 mmol/L [facility] Interpretation and review of laboratory results Normal [facility] Potassium [Moles/Vol] 4.2 mmol/L 3.5 - 5.1 mmol/L [facility] Protein [Mass/Vol] 7.5 g/dL 6.0 - 8.0 g/dL [facility] Sodium [Moles/Vol] 138 mmol/L 135 - 145 mmol/L [facility] Urea nitrogen [Mass/Vol] 13 mg/dL 8 - 25 mg/dL [facility] Urea nitrogen/Creatinine [Mass ratio] 19.1 mg/mg [facility] The eGFR should be used for monitoring renal function only and not for medication dosing. [facility] Lipid 1996 panelon Cholesterol [Mass/Vol] 195 mg/dL 100 - 199 mg/dL [facility] Comment on above: National Cholesterol Education Program Guidelines: Cholesterol Desirable: <200 mg/dL Borderline High: 200-239 mg/dL High: greater than or equal to 240 mg/dL Cholesterol in HDL [Mass/Vol] 56 mg/dL 40 - 59 [facility] Comment on above: National Cholesterol Education Program Guidelines: HDL Cholesterol Low: <40 mg/dL Near Optimal: 40-59 mg/dL High: greater than or equal to 60 mg/dL Cholesterol in LDL [Mass/Vol] 109 mg/dL 10 - 130 mg/dL [facility] Comment on above: National Cholesterol Education Program Guidelines: LDL Cholesterol Optimal: <100 mg/dL Near Optimal/above Optimal: 100-129 mg/dL Borderline High: 130-159 mg/dL High: 160-189 mg/dL Very High: greater than or equal to 190 mg/dL Cholesterol non HDL [Mass/Vol] 139 mg/dL [facility] Comment on above: National Cholesterol Education Program Guidelines: NON HDL Cholesterol Desirable: <130 mg/dL Borderline High: 130-159 mg/dL High: 160-189 mg/dL Very High: > or = 190 mg/dL Cholesterol.total/Cholest elton in HDL [Mass ratio] 3.5 {ratio} ratio [facility] Comment on above: Female Cholesterol/H DL Ratio: Average risk: 4.4 1/2 average risk: 3.3 2 x average risk: 7.1 Interpretation and review of laboratory results Abnormal [facility] Triglyceride [Mass/Vol] 151 mg/dL High 30 - 150 mg/dL [facility] Comment on above: National Cholesterol Education Program Guidelines: Triglyceride Normal: <150 mg/dL Borderline High: 150-199 mg/dL High: 200-499 mg/dL Very High: greater than or equal to 500 mg/dL No Panel Informationon 04-16 [facility] TSH DL <= 0.005 mIU/L Qnon 0 04-16-2021 Interpretation and review of laboratory results Normal [facility] TSH Qn 1.04 m[IU]/L [facility] Basic Metabolic Panel w/ Ref ray to MGon 03-23-2021 Anion gap [Moles/Vol] 13 mmol/L 9 - 17 mmol/L [facility] Calcium [Mass/Vol] 8.8 mg/dL 8.6 - 10. 4 mg/dL [facility] Chloride [Moles/Vol] 104 mmol/L 98 - 10 7 mmol/L [facility] CO2 [Moles/Vol] 21 mmol/L 20 - 31 mmol/L [facility] Creatinine [Mass/Vol] 0.65 mg/dL 0.50 - 0.90 mg/dL [facility] GFR >60 >60 mL/min [facility] GFR Non- >60 >60 mL/min [facility] GFR/1.73 sq M.predicted MDRD (S/P/Bld) [Vol rate/Area] [facility] Comment on above: Average GFR for 30-3 9 years old: 107 mL/min/1.73sq m Chronic Kidney Disease: <60 mL/min/1.73sq m Kidney failure: <15 mL/min/1.73sq m eGFR calculated using average adult body mass. Additional eGFR calculator available at: http://www.[employer]/multiple_crcl_2012.htm GFR/1.73 sq M.predicted MDRD (S/P/Bld) [Vol rate/Area] NOT REPORTED [facility] Glucose [Mass/Vol] 104 mg/dL High 70 - 99 mg/dL [facility] Interpretation and review of laboratory results Abnormal [facility] Potassium [Moles/Vol] 3.7 mmol/L 3.7 - 5.3 mmol/L [facility] Sodium [Moles/Vol] 138 mmol/L 135 - 144 mmol/L [facility] Urea nitrogen (BldV) [Mass/Vol] 15 mg/dL 6 - 20 mg/dL [facility] Urea nitrogen/Creatinine (Bld) [Mass ratio] [facility] CBC Auto Differentialon 03-07 Absolute Eos # 0.10 [facility] th Absolute Immature Granulocyte NOT REPORTED [facility] Absolute Lymph # 0.60 Low [facility] He alth Absolute [place] # [facility].50 [facility] Basophils (Bld) [#/Vol] 0.00 10*3/uL [facility] Basophils/100 WBC (Bld) 0 % 0 - 2 % [facility] Differential Type YES [facility] ealt Eosinophils/100 WBC (Bld) 2 % 0 - 5 % [facility] Hematocrit (Bld) [Volume fraction] 34.6 % Low 36 - 46 % [facility] Hemoglobin.gastrointestin al spec 1 Ql (Stl) 11.7 g/dL Low 12.0 - 16.0 g/dL [facility] Immature Granulocytes NOT REPORTED 0 % [facility] Interpretation and review of laboratory results Abnormal [facility] Lymphocytes/100 WBC (Bld) 13 % Low 15 - 40 % [facility] MCH (RBC) [Entitic mass] 26.4 pg 26 - 34 pg [facility] MCHC (RBC) [Mass/Vol] 33.8 g/dL 31 - 3 7 g/dL [facility] MCV (RBC) [Entitic vol] 78.2 fL Low 80 - 100 fL [facility] Monocytes/100 WBC (Bld) 10 % High 4 - 8 % [facility] NRBC Automated NOT REPORTED per 100 WBC [facility] Platelet distribution width (Bld) [Ratio] 14.4 % 12.1 - 15.2 % [facility] Platelet Estimate NOT REPORTED [facility] Platelet mean volume (Bld) [Entitic vol] NOT REPORTED 6.0 - 12.0 fL [facility] Platelets (Bld) [#/Vol] 259 10*3/uL [facility] RBC (Bld) [#/Vol] 4.43 10*6/uL 4.0 - 5.2 m/uL [facility] RBC (Bld) [#/Vol] NOT REPORTED [facility] Segmented neutrophils/100 WBC (Bld) 75 % 47 - 75 % [facility] Segs Absolute 3.60 [facility] h WBC (Bld) [#/Vol] 4.8 10*3/uL [facility] WBC (Bld) [#/Vol] NOT REPORTED [facility] COVID-19, Rapidon 03-23-2021 Interpretation and review of laboratory results Abnormal [facility] SARS-CoV-2 (COVID-19) RNA KALPESH+probe Ql (Unsp spec) Detected Abnormal Not Detected [employer] Comment on above: Rapid NAAT: The specimen [...] this assay. Fact sheet for Healthcare Providers: https://www.fda.gov/media/486305/download Fact sheet for Patients: https://www.fda.gov/media/884473/download Methodology: Isothermal Nucleic Acid Amplification Results reported to the appropriate Health Department Specimen Description .NASOPHARYNGEAL SWAB [facility] No Panel Informationon 03-23 Direct Exam Negative [facility] Aligo Rapid influenza A/B antigens on 03-23-2021 Special Requests NOT REPORTED [facility]igo Specimen Description .NASOPHARYNGEAL SWAB [facility] COVID-19, RapidOrdered By: Shayy Springer on 12-27-2020 SARS-CoV-2 (COVID-19) RNA KALPESH+probe Ql (Unsp spec) Not detected Not Detected [employer] Work Phone: Comment on above: Rapid NAAT: [...] management decisions. Fact sheet for Healthcare Providers: https://www.fda.gov/media/663564/download Fact sheet for Patients: https://www.fda.gov/media/791103/download Methodology: Isothermal Nucleic Acid Amplification Specimen Description .NASOPHARYNGEAL SWAB [employer] Phone: [employer] Phone: Strep Screen Group A ThroatO rdered By: Wayne Springer on 12-27-2020 S. pyogenes Ag IA Ql (Unsp spec) Rapid Strep A negative. A negative Rapid Group A Strep Screen result does not rule out the possibility of Group A Streptococci in the specimen. A Group A Strep DNA test is available upon request. [employer] Phone: Special Requests NOT REPORTED [employer] Phone: Specimen Description .THROAT [employer] Phone: [employer] Phone: XR SHOULDER RIGHT (MIN 2 VIE WS)Ordered By: Anuj Quinn on 11-20-2020 No acute fracture or traumatic malalignment. [employer] Phone: EXAMINATION: XR SHOULDER RIGHT (MIN 2 VIEWS), , 11/20/2020 9:30 PM EDT INDICATION: Reason for exam:->shoulder pain HISTORY: Ordering Provider Reason for Exam: Technologist Note: Additional: COMPARISON: None. TECHNIQUE: Right shoulder x-ray: 3 view(s). FINDINGS: No acute fracture. Glenohumeral and acromioclavicular joints are anatomically aligned. Joint spaces are preserved. Soft tissues are unremarkable. [employer] Phone: [place], [facility] Incoming Radiant Results From [employer] - 11/20/2020 9:55 PM EDT EXAMINATION: XR [...] IMPRESSION: No acute fracture or traumatic malalignment. [employer] Work Phone: [employer] Phone: COVID-19, MOLECULARon 2020 SARS-CoV-2 (COVID-19) RNA KALPESH+probe Ql (Unsp spec) Not detected Normal Not Detected [facility] Comment on above: Order Comment: [...] at the following links: For Healthcare Providers: https://www.fda.gov/media/561738/download For Patients: https://www.fda.gov/media/241716/download Performed By: #### L [id number] #### [facility] [address] [place] [address] Joe Rider M.D. [id number] HbA1c (Bld) [Mass fraction]O rdered By: Zelda Bautista on 07-09-2020 Interpretation and review of laboratory results Normal [facility] POC Hemoglobin [id number] By : Zelda Bautista on 07-09-2020 HbA1c (Bld) [Mass fraction] 5.2 % 4.0 - 6.0 % [facility] HbA1c (Bld) [Mass fraction]O rdered By: Lelo Gallegos on 06-09-2020 Interpretation and review of laboratory results Normal [facility] POC Hemoglobin [id number] By : Lelo Gallegos on 06-09-2020 HbA1c (Bld) [Mass fraction] 5.6 % 4.0 - 6.0 % [facility] CBC Auto Differentialon 03-08 Basophils (Bld) [#/Vol] 0.00 10*3/uL [place], [place] Basophils/100 WBC (Bld) 0 % 0 - 2 % [place] Differential Type YES [facility] [place] Eosinophils (Bld) [#/Vol] 0.10 10*3/uL [place] Eosinophils/100 WBC (Bld) 1 % 0 - 5 % [place] Erythrocyte distribution width (RBC) [Ratio] 14.2 % 12.1 - 15.2 % [place] Hematocrit (Bld) [Volume fraction] 36.1 % 36 - 46 % [place] Hemoglobin (Bld) [Mass/Vol] 12.5 g/dL 12 - 16 g/dL [place] Interpretation and review of laboratory results Abnormal [place] Lymphocytes (Bld) [#/Vol] 2.00 10*3/uL [place] Lymphocytes/100 WBC (Bld) 14 % Low 15 - 40 % [place] MCH (RBC) [Entitic mass] 30.6 pg 26 - 34 pg [place] MCHC (RBC) [Mass/Vol] 34.5 g/dL 31 - 3 7 g/dL [place] MCV (RBC) [Entitic vol] 88.5 fL 80 - 100 fL [place] Monocytes (Bld) [#/Vol] 0.80 10*3/uL [place] Monocytes/100 WBC (Bld) 6 % 4 - 8 % [place] Platelet mean volume (Bld) [Entitic vol] NOT REPORTED 6 - 12 fL [place] Platelets (Bld) [#/Vol] 300 10*3/uL [place] Platelets (Bld) [#/Vol] NOT REPORTED [place] RBC (Bld) [#/Vol] 4.08 10*6/uL 4 - 5.2 m/uL [place] RBC morphology finding Nom (Bld) NOT REPORTED [place] Segmented neutrophils/100 WBC (Bld) 79 % High 47 - 75 % [place] Segs Absolute 10.70 [place] WBC (Bld) [#/Vol] 13.6 10*3/uL [place] WBC (Bld) [#/Vol] NOT REPORTED per 100 WBC [place] WBC Morphology NOT REPORTED [place] COVID-19, PCRon 03-26-2020 SARS-CoV-2, Rapid Not Detected Not Detected [place] Comment on above: Rapid NAAT: The [...] management decisions. Fact sheet for Healthcare Providers: https://www.fda.gov/media/990381/download Fact sheet for Patients: https://www.fda.gov/media/637512/download Methodology: Isothermal Nucleic Acid Amplification Source .THROAT [place] Comprehensive Metabolic Pane l w/ Reflex to MGon 03-26-2020 Albumin [Mass/Vol] 3.3 g/dL Low 3.5 - 5.2 g/dL [place] Albumin/Globulin [Mass ratio] NOT REPORTED [place] ALP [Catalytic activity/Vol] 57 U/L 35 - 104 U/L [place] ALT [Catalytic activity/Vol] U/L Low 5 - 33 U/L [place] Anion gap [Moles/Vol] 11 mmol/L 9 - 17 mmol/L [place] AST [Catalytic activity/Vol] 9 U/L <32 [place] Bilirubin Ql (U) 0.10 mg/dL Low 0.3 - 1.2 mg/dL [place] Bun/Cre Ratio 21 High [place] Calcium [Mass/Vol] 10.2 mg/dL 8.6 - 10. 4 mg/dL [place] Chloride [Moles/Vol] 104 mmol/L 98 - 10 7 mmol/L [place] CO2 [Moles/Vol] 21 mmol/L 20 - 31 mmol/L [place] Creatinine [Mass/Vol] 0.42 mg/dL Low 0.5 - 0.9 mg/dL [place] GFR >60 >60 mL/min [place] GFR Non- >60 >60 mL/min [place] GFR/1.73 sq M predicted among non-blacks MDRD (S/P/Bld) [Vol rate/Area] NOT REPORTED [place] GFR/1.73 sq M predicted among non-blacks MDRD (S/P/Bld) [Vol rate/Area] [place] Comment on above: Average GFR for 30-3 9 years old: 107 mL/min/1.73sq m Chronic Kidney Disease: <60 mL/min/1.73sq m Kidney failure: <15 mL/min/1.73sq m eGFR calculated using average adult body mass. Additional eGFR calculator available at: http://www.[employer]/multiple_crcl_2012.htm Glucose [Mass/Vol] 100 mg/dL High 70 - 99 mg/dL [place] Interpretation and review of laboratory results Abnormal [place] Potassium [Moles/Vol] 3.8 mmol/L 3.7 - 5.3 mmol/L [place] Protein [Mass/Vol] 6.5 g/dL 6.4 - 8.3 g/dL [place] Sodium [Moles/Vol] 136 mmol/L 135 - 144 mmol/L [place] Urea nitrogen [Mass/Vol] 9 mg/dL 6 - 20 mg/dL [place] Otheron 03-26-2020 SARS-CoV-2 [place], [place] Immature granulocytes (Bld) [#/Vol] NOT REPORTED [place] Urinalysis, reflex to micros copicon 03-26-2020 Bilirubin U[facility] Negative NE[facility]IVE [facility] [place] [place] Color, UA YELLOW YELLOW [place], [place] Glucose, Ur Negative NEGATIVE [place] Ketones Ql (U) Negative NEGATIVE [place] Leukocyte esterase Test strip Ql (U) Negative NEGATIVE [place] Nitrite, Urine Negative NEGATIVE [place] pH, UA 7.0 [place] Protein (U) [Mass/Vol] Negative NEGATIVE [place], [place] Specific [place], UA 1.010 [place], [place] Turbidity UA CLEAR CLEAR [place] Urinalysis Comments [place] Urine Hgb Negative NEGATIVE [place] Urobilinogen, Urine Normal Normal [place] Wet Prep, Genitalon 11-20-19 Direct Exam MODERATE EPITHELIAL CELLS Abnormal [place] Direct Exam FEW TRICHOMONAS SEEN Abnormal [place] Direct Exam MODERATE BACTERIA Abnormal [place] Direct Exam Few epithelials coated with bacteria resembling clue cells. Abnormal [place] Direct Exam NO FUNGAL ELEMENTS SEEN [place] Interpretation and review of laboratory results Abnormal [place] Special Requests NOT REPORTED [place] Specimen Description .VAGINAL SPECIMEN [place] WBC (Bld) [#/Vol] FEW WBC SEEN Abnormal [place] Basic Metabolic Panelon 06-05 Anion gap [Moles/Vol] 15 mmol/L 10 - 2 0 mmol/L [facility] Calcium [Mass/Vol] 8.6 mg/dL 8.4 - 10. 2 mg/dL [facility] Chloride [Moles/Vol] 102 mmol/L 98 - 10 8 mmol/L [facility] Creatinine [Mass/Vol] 0.36 mg/dL Low 0.40 - 1.10 [facility] GFR/1.73 sq M predicted among non-blacks MDRD (S/P/Bld) [Vol rate/Area] The eGFR should be used for monitoring renal function only and not for medication dosing. [facility] GFR/1.73 sq M.predicted CKD-EPI (S/P/Bld) [Vol rate/Area] 146 >=60 mL/min/1.73 m2 [facility] Glucose [Mass/Vol] 102 mg/dL High 65 - 99 mg/dL [facility] HCO3 [Moles/Vol] 25 mmol/L 21 - 32 mmol/L [facility] Interpretation and review of laboratory results Abnormal [facility] Potassium [Moles/Vol] 4.1 mmol/L 3.5 - 5.1 mmol/L [facility] Sodium [Moles/Vol] 138 mmol/L 135 - 145 mmol/L [facility] Urea nitrogen [Mass/Vol] 5 mg/dL Low 8 - 25 mg/dL [facility] Urea nitrogen/Creatinine [Mass ratio] 13.9 mg/mg [facility] Hepatic Function Panelon Albumin [Mass/Vol] 3.3 g/dL 3.2 - 5.2 g/dL [facility] ALP [Catalytic activity/Vol] 253 U/L High 40 - 140 U/L [facility] ALT [Catalytic activity/Vol] 686 U/L High 0 - 40 U/L [facility] AST [Catalytic activity/Vol] 349 U/L High 0 - 45 U/L [facility] Bilirubin [Mass/Vol] 6.0 mg/dL High 0 - 1.3 mg/dL [facility] Bilirubin.conjugated [Mass/Vol] 5.1 mg/dL High 0 - 0.4 mg/dL [facility] Interpretation and review of laboratory results Abnormal [facility] Protein [Mass/Vol] 6.8 g/dL 6 - 8 g/dL [facility] alth Bilirubin, Directon 06-16-19 20 Bilirubin.conjugated [Mass/Vol] 5.4 mg/dL High 0 - 0.4 mg/dL [facility] Interpretation and review of laboratory results Abnormal [facility] CBCon 06-16-2019 Erythrocyte distribution width (RBC) [Entitic vol] 15.1 % High 11.6 - 14.8 % [facility] Hematocrit (Bld) [Volume fraction] 38.5 % 36 - 46 % [facility] Hemoglobin (Bld) [Mass/Vol] 12.9 g/dL 12 - 16 g/dL [facility] Interpretation and review of laboratory results Abnormal [facility] MCH (RBC) [Entitic mass] 29.1 pg 26 - 34 pg [facility] MCHC (RBC) [Mass/Vol] 33.5 g/dL 31 - 3 7 g/dL [facility] MCV (RBC) [Entitic vol] 86.9 fL 80 - 100 fL [facility] Nucleated RBC (Bld) [#/Vol] 0.00 10*3/uL [facility] Nucleated RBC/100 WBC (Bld) [Ratio] 0.0 % [facility] Platelet mean volume (Bld) [Entitic vol] 11.3 fL 9 - 15.5 fL [facility] Platelets (Bld) [#/Vol] 185 10*3/uL [facility] RBC (Bld) [#/Vol] 4.43 10*6/uL [facility] WBC (Bld) [#/Vol] 6.48 10*3/uL [facility] Comprehensive Metabolic Pane cayden 06-16-2019 Albumin [Mass/Vol] 3.3 g/dL 3.2 - 5.2 g/dL [facility] ALP [Catalytic activity/Vol] 217 U/L High 40 - 140 U/L [facility] ALT [Catalytic activity/Vol] 825 U/L High 0 - 40 U/L [facility] Anion gap [Moles/Vol] 14 mmol/L 10 - 2 0 mmol/L [facility] AST [Catalytic activity/Vol] 544 U/L High 0 - 45 U/L [facility] Bilirubin [Mass/Vol] 5.9 mg/dL High 0 - 1.3 mg/dL [facility] Calcium [Mass/Vol] 8.4 mg/dL 8.4 - 10. 2 mg/dL [facility] Chloride [Moles/Vol] 103 mmol/L 98 - 10 8 mmol/L [facility] Creatinine [Mass/Vol] 0.32 mg/dL Low 0.40 - 1.10 [facility] GFR/1.73 sq M predicted among non-blacks MDRD (S/P/Bld) [Vol rate/Area] The eGFR should be used for monitoring renal function only and not for medication dosing. [facility] GFR/1.73 sq M.predicted CKD-EPI (S/P/Bld) [Vol rate/Area] 152 >=60 mL/min/1.73 m2 [facility] Glucose [Mass/Vol] 92 mg/dL 65 - 99 mg/dL [facility] HCO3 [Moles/Vol] 26 mmol/L 21 - 32 mmol/L [facility] Interpretation and review of laboratory results Abnormal [facility] Potassium [Moles/Vol] 4.3 mmol/L 3.5 - 5.1 mmol/L [facility] Protein [Mass/Vol] 6.2 g/dL 6 - 8 g/dL [facility] alth Sodium [Moles/Vol] 139 mmol/L 135 - 145 mmol/L [facility] Urea nitrogen [Mass/Vol] 4 mg/dL Low 8 - 25 mg/dL [facility] Urea nitrogen/Creatinine [Mass ratio] 12.5 mg/mg [facility] Bilirubin, Directon 06-15-19 20 Bilirubin.conjugated [Mass/Vol] 4.7 mg/dL High 0 - 0.4 mg/dL [facility] Interpretation and review of laboratory results Abnormal [facility] CBCon 06-15-2019 Erythrocyte distribution width (RBC) [Entitic vol] 14.8 % 11.6 - 14.8 % [facility] Hematocrit (Bld) [Volume fraction] 38.5 % 36 - 46 % [facility] Hemoglobin (Bld) [Mass/Vol] 12.6 g/dL 12 - 16 g/dL [facility] MCH (RBC) [Entitic mass] 29.0 pg 26 - 34 pg [facility] MCHC (RBC) [Mass/Vol] 32.7 g/dL 31 - 3 7 g/dL [facility] MCV (RBC) [Entitic vol] 88.5 fL 80 - 100 fL [facility] Nucleated RBC (Bld) [#/Vol] 0.00 10*3/uL [facility] Nucleated RBC/100 WBC (Bld) [Ratio] 0.0 % [facility] Platelet mean volume (Bld) [Entitic vol] 11.0 fL 9 - 15.5 fL [facility] Platelets (Bld) [#/Vol] 155 10*3/uL [facility] RBC (Bld) [#/Vol] 4.35 10*6/uL [facility] WBC (Bld) [#/Vol] 5.74 10*3/uL [facility] Comprehensive Metabolic Pane cayden 06-15-2019 Albumin [Mass/Vol] 3.2 g/dL 3.2 - 5.2 g/dL [facility] ALP [Catalytic activity/Vol] 193 U/L High 40 - 140 U/L [facility] ALT [Catalytic activity/Vol] 888 U/L High 0 - 40 U/L [facility] Anion gap [Moles/Vol] 15 mmol/L 10 - 2 0 mmol/L [facility] AST [Catalytic activity/Vol] 667 U/L High 0 - 45 U/L [facility] Bilirubin [Mass/Vol] 5.2 mg/dL High 0 - 1.3 mg/dL [facility] Calcium [Mass/Vol] 8.2 mg/dL Low 8.4 - 10. 2 mg/dL [facility] Chloride [Moles/Vol] 103 mmol/L 98 - 10 8 mmol/L [facility] Creatinine [Mass/Vol] 0.36 mg/dL Low 0.40 - 1.10 [facility] GFR/1.73 sq M predicted among non-blacks MDRD (S/P/Bld) [Vol rate/Area] The eGFR should be used for monitoring renal function only and not for medication dosing. [facility] GFR/1.73 sq M.predicted CKD-EPI (S/P/Bld) [Vol rate/Area] 146 >=60 mL/min/1.73 m2 [facility] Glucose [Mass/Vol] 122 mg/dL High 65 - 99 mg/dL [facility] HCO3 [Moles/Vol] 22 mmol/L 21 - 32 mmol/L [facility] Interpretation and review of laboratory results Abnormal [facility] Potassium [Moles/Vol] 3.8 mmol/L 3.5 - 5.1 mmol/L [facility] Protein [Mass/Vol] 5.8 g/dL Low 6 - 8 g/dL [facility] alth Sodium [Moles/Vol] 136 mmol/L 135 - 145 mmol/L [facility] Urea nitrogen [Mass/Vol] 5 mg/dL Low 8 - 25 mg/dL [facility] Urea nitrogen/Creatinine [Mass ratio] 13.9 mg/mg [facility] [place] HEPATOBILIARY WO EJECTION FRACTIONon 06-15-2019 [...] tree, and small bowel are not visualized. [facility] Opacified liver with no visualization of [...] regarding the presence or absence of cholecystitis. [employer] Workstation ID: [id number] [facility] Interface, Rad In [employer]ji Speechq - [...] regarding the presence or absence of cholecystitis. [employer] Workstation ID: [id number] [facility] APTTon 06-14-2019 aPTT Coag (Bld) [Time] 31.1 s [facility] [place] Comment on above: PTT Therapeutic Range: 61.7-88.4 Therapeutic range corresponds to plasma heparin levels of 0.3-0.7 U/mL. Acetaminophen Levelon 2019 Acetaminophen [Mass/Vol] 9.1 [facility] Interpretation and review of laboratory results Normal [facility] Bilirubin, Directon 06-14-19 20 Bilirubin.conjugated [Mass/Vol] 4.3 mg/dL High 0 - 0.4 mg/dL [facility] Interpretation and review of laboratory results Abnormal [facility] CBC WITH AUTO DIFFERENTIALon 06-14-2019 Erythrocyte distribution width (RBC) [Entitic vol] 14.5 % 11.6 - 14.8 % [facility] Hematocrit (Bld) [Volume fraction] 34.6 % Low 36 - 46 % [facility] Hemoglobin (Bld) [Mass/Vol] 11.6 g/dL Low 12 - 16 g/dL [facility] Interpretation and review of laboratory results Abnormal [facility] MCH (RBC) [Entitic mass] 29.7 pg 26 - 34 pg [facility] MCHC (RBC) [Mass/Vol] 33.5 g/dL 31 - 3 7 g/dL [facility] MCV (RBC) [Entitic vol] 88.5 fL 80 - 100 fL [facility] Nucleated RBC (Bld) [#/Vol] 0.00 10*3/uL [facility] Nucleated RBC/100 WBC (Bld) [Ratio] 0.0 % [facility] Platelet mean volume (Bld) [Entitic vol] 10.8 fL 9 - 15.5 fL [facility] Platelets (Bld) [#/Vol] 172 10*3/uL [facility] RBC (Bld) [#/Vol] 3.91 10*6/uL Low [facility] WBC (Bld) [#/Vol] 7.28 10*3/uL [facility] CT ABDOMEN PELVIS W IV CONTR AST Additional Contrast? Noneon 06-14-2019 [place], [facility] Incoming Radiant Results From [facility] - 06/14/2019 12:27 AM EDT EXAMINATION: CT [...] liver function panel and consider ultrasound imaging. [place] Pericholecystic fluid versus gallbladder wall thickening and additional periportal edema. There are no visualized stones in the gallbladder gallbladder and/or hepatic pathology are suspected. Correlate with liver function panel and consider ultrasound imaging. [place] EXAMINATION: CT ABDOMEN PELVIS W IV [...] structures demonstrate no acute or concerning abnormality. [place] CT COMPARISON IMPORTon 06-13 This order has been auto-finalized and does not contain a result. [facility] Comprehensive Metabolic Pane cayden 06-14-2019 Albumin [Mass/Vol] 3.0 g/dL Low 3.2 - 5.2 g/dL [facility] ALP [Catalytic activity/Vol] 183 U/L High 40 - 140 U/L [facility] ALT [Catalytic activity/Vol] 808 U/L High 0 - 40 U/L [facility] Anion gap [Moles/Vol] 16 mmol/L 10 - 2 0 mmol/L [facility] AST [Catalytic activity/Vol] 592 U/L High 0 - 45 U/L [facility] Bilirubin [Mass/Vol] 4.9 mg/dL High 0 - 1.3 mg/dL [facility] Calcium [Mass/Vol] 8.4 mg/dL 8.4 - 10. 2 mg/dL [facility] Chloride [Moles/Vol] 104 mmol/L 98 - 10 8 mmol/L [facility] Creatinine [Mass/Vol] 0.43 mg/dL 0.40 - 1.10 [facility] GFR/1.73 sq M predicted among non-blacks MDRD (S/P/Bld) [Vol rate/Area] The eGFR should be used for monitoring renal function only and not for medication dosing. [facility] GFR/1.73 sq M.predicted CKD-EPI (S/P/Bld) [Vol rate/Area] 138 >=60 mL/min/1.73 m2 [facility] Glucose [Mass/Vol] 79 mg/dL 65 - 99 mg/dL [facility] HCO3 [Moles/Vol] 21 mmol/L 21 - 32 mmol/L [facility] Interpretation and review of laboratory results Abnormal [facility] Potassium [Moles/Vol] 3.8 mmol/L 3.5 - 5.1 mmol/L [facility] Protein [Mass/Vol] 5.7 g/dL Low 6 - 8 g/dL [facility] alth Sodium [Moles/Vol] 137 mmol/L 135 - 145 mmol/L [facility] Urea nitrogen [Mass/Vol] 9 mg/dL 8 - 25 mg/dL [facility] Urea nitrogen/Creatinine [Mass ratio] 20.9 mg/mg High [facility] DRUGS OF ABUSE SCREEN, URINE on 06-14-2019 Amphetamines Ql (U) None Detected None Detected [facility] Comment on above: Urine Amphetamine Cu toff: < 1000 ng/mL = None Detected Barbiturates Screen Ql (U) None Detected None Detected [facility] Comment on above: Urine Barbiturates C utoff: < 200 ng/mL = None Detected Benzodiazepines Ql (U) None Detected None Detected [facility] Comment on above: Urine Benzodiazepine Cutoff: < 300 ng/mL = None Detected Cannabinoids Screen Ql (U) None Detected None Detected [facility] Comment on above: Urine Cannabinoids C utoff: < 50 ng/mL = None Detected Cocaine Ql (U) Positive Abnormal None Detected [facility] Comment on above: Urine Cocaine Cutoff : < 300 ng/mL = None Detected Interpretation and review of laboratory results Abnormal [facility] Methadone Screen Ql (U) None Detected Non e Detected [facility] Comment on above: Urine Methadone Cuto ff: < 300 ng/mL = None Detected Opiates Screen Ql (U) None Detected None Detected [facility] Comment on above: Urine Opiates Cutoff : < 300 ng/mL = None Detected Oxycodone Ql (U) None Detected None Detected [facility] Comment on above: Urine Oxycodone Cuto ff: < 100 ng/mL = None Detected Screen results should be used for treatment purposes only. Specimen will be kept for 2 weeks, if the sample is adequate. Confirmation testing can be initiated by calling the lab within 2 weeks. [facility] HEPATITIS PANEL, ACUTEon HAV IgM Ql (S) Negative Negative [facility] HBV core IgM Ql (S) Negative Negative [facility] HBV surface Ag Ql (S) Negative Negative [facility] HCV Ab Ql (S) Positive Abnormal Negative [facility] Comment on above: A positive antibody test requires additional follow-up testing, Hepatitis C Virus Quantitation, to determine if a person is currently infected with Hepatitis C. Interpretation and review of laboratory results Abnormal [facility] Test performed using [employer] DEVIKA immunoassay system [facility] Lactic Acid, Plasmaon 2019 Interpretation and review of laboratory results Normal [facility] Lactate [Moles/Vol] 0.8 mmol/L 0.6 - 2 mmol/L [facility] MORPHOLOGYon 06-14-2019 Platelets LM Ql (Bld) Normal Normal [facility] finding Nom (Bld) Normal [facility] MRCPon 06-14-2019 EXAMINATION: MRCP 03/15/2024 HISTORY: [...] Axial T1-weighted images were obtained in- and fhm-rd-[id number]. Axial diffusion-weighted imaging was also performed. FINDINGS: The liver overall appears enlarged with the right hepatic lobe measuring 22.6 cm tnqvgzql-pw-ckgpkvt r. The spleen measures 14.6 cm azfaefsx-rd-tqolrhy r and is also mildly enlarged. There [...] the right kidney. Bowel pattern is nonobstructive. [facility] 1. Re-demonstration of diffuse periportal edema as well as significant circumferential gallbladder wall edema similar to that seen on prior CT study. 2. Mild hepatosplenomegaly. 3. No obvious gallstones. Negative for biliary or pancreatic ductal dilatation. Negative for choledocholithiasis . 4. Trace volume of abdominal ascites. [employer] Workstation ID: [id number] [facility] Interface, Rad In Scopial Fashioni Speechq - 06/14/2019 4:45 PM EDT EXAMINATION: [...] Axial T1-weighted images were obtained in- and cav-rm-ghsxs. Axial diffusion-weighted imaging was also performed. FINDINGS: The liver overall appears enlarged with the right hepatic lobe measuring 22.6 cm gyuusngl-ol-zerslyx r. The spleen measures 14.6 cm iflwmbqs-wo-xptbdse r and is also mildly enlarged. There [...] . 4. Trace volume of abdominal ascites. [employer] Workstation ID: [id number] [facility] Manual Differentialon 2019 Basophils (Bld) [#/Vol] 0.00 10*3/uL [facility] Basophils/100 WBC (Bld) 0.0 % [facility] Eosinophils (Bld) [#/Vol] 0.00 10*3/uL [facility] Eosinophils/100 WBC (Bld) 0.0 % [facility] Lymphocytes (Bld) [#/Vol] 3.28 10*3/uL [facility] Lymphocytes/100 WBC (Bld) 37.0 % [facility] Monocytes (Bld) [#/Vol] 0.44 10*3/uL [facility] Monocytes/100 WBC (Bld) 6.0 % [facility] Neutrophils (Bld) [#/Vol] 3.57 10*3/uL [facility] Neutrophils/100 WBC (Bld) 49.0 % [facility] Variant lymphocytes/100 WBC (Bld) 8.0 % [facility] PT/INRon 06-14-2019 INR Coag (PPP) [Relative time] 1.3 {INR} [facility] Interpretation and review of laboratory results Abnormal [facility] PT Coag (PPP) [Time] 15.5 s [facility] During the induction phase of oral anticoagulation, the INR may not reflect the anticoagulation status of the patient. Therapeutic ranges for INR's are: Most clinical situations: INR 2.0-3.0 Mechanical Prosthetic Valve: INR 2.5-3.5 Critical: INR >5.0 [facility] Protime-INRon 06-14-2019 INR Coag (PPP) [Relative time] 1.2 {INR} [place], [place] Comment on above: * THERAPY INDICATIONS * REFERENCE RANGES Pts not on anti-coagulants 1.0 - 1.5 INR Low risk pts on anti-coagulants 2.0 - 3.0 INR High risk pts on anti-coagulants 2.5 - 3.5 INR Prevention of atrial thrombo-embolism 3.0 - 4.5 INR Interpretation and review of laboratory results Abnormal [facility] PT Coag (PPP) [Time] 11.7 s [place] Salicylate Levelon 0 Interpretation and review of laboratory results Abnormal [facility] Salicylates [Mass/Vol] mg/dL Low 10 - 20 mg/dL [facility] URINALYSISon 06-14-2019 Bacteria Auto Ql (U) Rare Abnormal None Se en /hpf [facility] Bilirubin Ql (U) Positive Abnormal Negative [facility] th Comment on above: False positive urine bilirubins can occur in the setting of a large amount of hemoglobin and secondary to medications including anti-inflammatory agents, rifampin, and pyridium. Clarity Refractometry automated (U) Clear Clear [facility] Color (U) Erica Abnormal Colorless, Yellow [facility] Epithelial cells.squamous Auto (Urine sed) [#/Area] 4 [facility] alth Glucose Auto test strip (U) [Mass/Vol] Negative Negative mg/dL [facility] Hemoglobin Auto test strip Ql (U) Negative Negative [facility] Interpretation and review of laboratory results Abnormal [facility] Ketones (U) [Mass/Vol] >=80 Abnormal Negat krystal mg/dL [facility] Leukocyte esterase Auto test strip Ql (U) Negative Negative [facility] Mucus Auto (Urine sed) [#/Area] Rare None Seen, Rare /lpf [facility] Nitrite Auto test strip Ql (U) Negative Negative [facility] pH (U) 6.0 [pH] [facility] Protein (U) [Mass/Vol] 30 Abnormal Negat krystal mg/dL [facility] Comment on above: False positive resul ts may occur in urines with large amounts of hemoglobin, pH greater than 8.0, contrast medium, or disinfectants including ammonium compounds. RBC Auto (Urine sed) [#/Area] 2 [facility] Specific gravity (U) [Rel density] 1.028 High [facility] Urobilinogen (U) [Mass/Vol] >=4.0 Abnormal <2.0 mg/dL [facility] WBC Auto (Urine sed) [#/Area] 2 [facility] Microscopic examination is performed on all urinalysis samples and only positive findings are reported. The test for blood on the chemical analytic portion of urinalysis may also be positive due to hemoglobinuria and myoglobinuria and if red blood cells are present they are quantified by microscopic examination. [facility] US ABDOMEN LIMITED STUDYon 0 06-14-2019 [...] liver likely small hemangioma. Workstation ID: [id number] Dada EXAMINATION: US ABDOMEN LIMITED STUDY HISTORY: RUQ [...] measures 10.7 cm in length. No hydronephrosis. [facility] 1. Contracted gallbladder limits evaluation. No cholelithiasis identified. Nonspecific edematous gallbladder wall thickening and reported positive sonographic Short's sign, cannot exclude acalculus cholecystitis. No biliary ductal dilatation. 2. 1.3 cm echogenic lesion left lobe of the liver likely small hemangioma. Workstation ID: [id number] [employer] Amylaseon 06-13-2019 Amylase [Catalytic activity/Vol] 22 U/L Low 28 - 100 U/L [place], [place] CBC Auto Differentialon Basophils (Bld) [#/Vol] 0.00 10*3/uL [place] Basophils/100 WBC (Bld) 1 % 0 - 2 % [place] Differential Type YES [facility] [place] Eosinophils (Bld) [#/Vol] 0.00 10*3/uL [place] Eosinophils/100 WBC (Bld) 0 % 0 - 5 % [place] Erythrocyte distribution width (RBC) [Ratio] 14.9 % 12.1 - 15.2 % [place] Hematocrit (Bld) [Volume fraction] 43.3 % 36 - 46 % [place] Hemoglobin (Bld) [Mass/Vol] 14.3 g/dL 12 - 16 g/dL [place] Lymphocytes (Bld) [#/Vol] 2.50 10*3/uL [place] Lymphocytes/100 WBC (Bld) 30 % 15 - 40 % [place] MCH (RBC) [Entitic mass] 28.8 pg 26 - 34 pg [place] MCHC (RBC) [Mass/Vol] 33.1 g/dL 31 - 3 7 g/dL [place] MCV (RBC) [Entitic vol] 87.2 fL 80 - 100 fL [place] Monocytes (Bld) [#/Vol] 0.70 10*3/uL [place] Monocytes/100 WBC (Bld) 8 % 4 - 8 % [place] Platelet mean volume (Bld) [Entitic vol] NOT REPORTED 6 - 12 fL [place] Platelets (Bld) [#/Vol] 203 10*3/uL [place] Platelets (Bld) [#/Vol] NOT REPORTED [place] RBC (Bld) [#/Vol] 4.97 10*6/uL 4 - 5.2 m/uL [place] RBC morphology finding Nom (Bld) NOT REPORTED [place] Segmented neutrophils/100 WBC (Bld) 61 % 47 - 75 % [place] Segs Absolute 5.20 [place] WBC (Bld) [#/Vol] 8.4 10*3/uL [place] WBC (Bld) [#/Vol] NOT REPORTED per 100 WBC [place] WBC Morphology NOT REPORTED [place] Comprehensive Metabolic Pane l w/ Reflex to MGon 06-13-2019 Albumin [Mass/Vol] 4.1 g/dL 3.5 - 5.2 g/dL [place] Albumin/Globulin [Mass ratio] NOT REPORTED [place] ALP [Catalytic activity/Vol] 255 U/L High 35 - 104 U/L [place] ALT [Catalytic activity/Vol] 1116 U/L [place] 5 - 33 U/L [place] Anion gap [Moles/Vol] 17 mmol/L 9 - 17 mmol/L [place] AST [Catalytic activity/Vol] 665 U/L High <32 [place] Bilirubin Ql (U) 6.52 mg/dL High 0.3 - 1.2 mg/dL [place] Bun/Cre Ratio 17 [place] Calcium [Mass/Vol] 10.1 mg/dL 8.6 - 10. 4 mg/dL [place] Chloride [Moles/Vol] 95 mmol/L Low 98 - 10 7 mmol/L [place] CO2 [Moles/Vol] 24 mmol/L 20 - 31 mmol/L [place] Creatinine [Mass/Vol] 0.82 mg/dL 0.5 - 0.9 mg/dL [place] GFR >60 >60 mL/min [place] GFR Non- >60 >60 mL/min [place] GFR/1.73 sq M predicted among non-blacks MDRD (S/P/Bld) [Vol rate/Area] [place] Comment on above: Average GFR for 20-2 9 years old: 116 mL/min/1.73sq m Chronic Kidney Disease: <60 mL/min/1.73sq m Kidney failure: <15 mL/min/1.73sq m eGFR calculated using average adult body mass. Additional eGFR calculator available at: http://www.[employer]/multiple_crcl_2012.htm GFR/1.73 sq M predicted among non-blacks MDRD (S/P/Bld) [Vol rate/Area] NOT REPORTED [place] Glucose [Mass/Vol] 134 mg/dL High 70 - 99 mg/dL [place] Interpretation and review of laboratory results Abnormal [place] Potassium [Moles/Vol] 3.7 mmol/L 3.7 - 5.3 mmol/L [place] Protein [Mass/Vol] 8.1 g/dL 6.4 - 8.3 g/dL [place] Sodium [Moles/Vol] 136 mmol/L 135 - 144 mmol/L [place] Urea nitrogen [Mass/Vol] 14 mg/dL 6 - 20 mg/dL [place] Drug screen multi urineon Amphetamine Screen, Ur Negative NEGATIVE [place] Comment on above: (Positive cutoff 500 ng/mL) Barbiturate Screen, Ur Negative NEGATIVE [place] Comment on above: (Positive cutoff 200 ng/mL) Benzodiazepine Screen, Urine Negative NEGATIVE [place] Comment on above: (Positive cutoff 150 ng/mL) Buprenorphine Urine NOT REPORTED NEGATIVE [place] Cannabinoid Scrn, Ur Negative NEGATIVE [place] Comment on above: (Positive cutoff 50 ng/mL) Cocaine Metabolite, Urine Positive Abnormal NEGATIVE [place] Comment on above: (Positive cutoff 150 ng/mL) Interpretation and review of laboratory results Abnormal [place] MDMA, Urine NOT REPORTED NEGATIVE [place] Methadone Screen, Urine Negative NEGATIVE [place] Comment on above: (Positive cutoff 200 ng/mL) Methamphetamine, Urine Negative NEGATIVE [place] Comment on above: (Positive cutoff 500 ng/mL) Opiates, Urine Positive Abnormal NEGATIVE [place] Comment on above: (Positive cutoff 100 ng/mL) Oxycodone Screen, Ur Negative NEGATIVE [place] Comment on above: (Positive cutoff 100 ng/mL) Phencyclidine, Urine Negative NEGATIVE [place] Comment on above: (Positive cutoff 25 ng/mL) Propoxyphene, Urine Negative NEGATIVE [place] Comment on above: (Positive cutoff 300 ng/mL) Test Information NOT REPORTED [place] Tricyclic Antidepressants, Urine Negative NEGATIVE [place] Comment on above: (Positive cutoff 300 ng/mL) Drug screen results are to be used for medical purposes only. All positive results are unconfirmed. Testing for employment or legal uses should be sent to a reference laboratory for confirmation. Lactic Acidon 06-13-2019 Lactate [Moles/Vol] 1.2 mmol/L 0.5 - 2. 2 mmol/L [place] Lipaseon 06-13-2019 Lipase [Catalytic activity/Vol] 8 U/L Low 13 - 60 U/L [place] Microscopic Urinalysison Amorphous, UA NOT REPORTED None [place] Bacteria, UA 2+ Abnormal None [place] Casts UA 5 TO 10 HYALINE /LPF [place] Casts UA 2 TO 5 WAXY /LPF [place] Crystals, UA NOT REPORTED None /HPF [place] Epithelial Cells UA LOADED /HPF [place] Interpretation and review of laboratory results Abnormal [place] Mucus, UA 4+ Abnormal None [place] Other Observations UA NOT REPORTED NOT REQ. [place] RBC (U) [#/Vol] 5 TO 10 [place] Renal Epithelial, UA NOT REPORTED 0 /HPF [place] Trichomonas, UA NOT REPORTED None [place] WBC, UA 10 TO 20 0 /HPF [place] Yeast, UA NOT REPORTED None [place] - [place] Otheron 06-13-2019 Interpretation and review of laboratory results Abnormal [place] Immature granulocytes (Bld) [#/Vol] NOT REPORTED 0 % [place] , Urineon 0 Beta HCG ( test) Ql (U) Negative NEGATIVE [place] Urinalysis, reflex to micros copicon 06-13-2019 Bilirubin Urine 3+ Abnormal NEGATIVE [place] Color, UA BROWN Abnormal YELLOW [place] Glucose, Ur Negative NEGATIVE [place] Interpretation and review of laboratory results Abnormal [place] Ketones Ql (U) MODERATE Abnormal NEGATIVE [place] Leukocyte esterase Test strip Ql (U) 1+ Abnormal NEGATIVE [place] Nitrite, Urine Positive Abnormal NEGATIVE [place] pH, UA 5.0 [place] Protein (U) [Mass/Vol] 1+ Abnormal NEGATIVE [place] Specific [place], UA 1.020 [place], [place] Turbidity UA CLEAR CLEAR [place] Urinalysis Comments [place] Urine Hgb TRACE Abnormal NEGATIVE [place] Urobilinogen, Urine 12 mg/dL Abnormal Normal [place] Vital Signs Date Time Vital Sign Value Performing Clinician Facility 10-05-2023 21:00-0400 Body temperature 99.61 [degF] Violet Juarez MD Work Phone: [facility] 10-05-2023 21:00-0400 Diastolic blood pressure 68 mm[Hg] Violet Juarez MD Work Phone: [facility] 10-05-2023 21:00-0400 Heart rate 93 /min Violet Juarez MD Work Phone: [facility] 10-05-2023 21:00-0400 Respiratory rate 16 /min Violet Juarez MD Work Phone: [facility] 10-05-2023 21:00-0400 SaO2% (BldA) [Mass fraction] 97 % Violet Juarez MD Work Phone: [facility] 10-05-2023 21:00-0400 Systolic blood pressure 114 mm[Hg] Violet Juarez MD Work Phone: [facility] 05-13-2023 11:27-0500 Body temperature 98.6 [degF] Jonathan Martinez [facility] 05-13-2023 11:27-0500 Diastolic blood pressure 78 mm[Hg] Jonathan Martinez [facility] 05-13-2023 11:27-0500 Heart rate 83 /min Jonathan Martinez [facility] 05-13-2023 11:27-0500 Respiratory rate 18 /min Jonathan Martinez [facility] 05-13-2023 11:27-0500 SaO2% (BldA) [Mass fraction] 97 % Jonathan Martinez [facility] 05-13-2023 11:27-0500 Systolic blood pressure 113 mm[Hg] Jonathan Martinez [facility] 05-11-2023 21:49-0500 Body temperature 98.06 [degF] [facility] 05-11-2023 21:49-0500 Diastolic blood pressure 84 mm[Hg] [facility] 05-11-2023 21:49-0500 Heart rate 105 /min [facility] 05-11-2023 21:49-0500 Respiratory rate 17 /min [facility] 05-11-2023 21:49-0500 SaO2% (BldA) [Mass fraction] 97 % [facility] 05-11-2023 21:49-0500 Systolic blood pressure 130 mm[Hg] [facility] 05-10-2023 11:41-0500 Body height 160 cm Chet Berumen DO Work Phone: [facility] [employer] 05-10-2023 11:41-0500 Body mass index (BMI) [Ratio] 44.29 kg/m2 Chet Berumen Work Phone: [facility] [employer] 05-10-2023 11:41-0500 Body temperature 97.9 [degF] Chet Berumen Work Phone: [facility] [employer] 05-10-2023 11:41-0500 Body weight 113.4 kg Chet Berumen DO Work Phone: [facility] [employer] 05-10-2023 11:41-0500 Diastolic blood pressure 76 mm[Hg] Chet Berumen Work Phone: [facility] [employer] 05-10-2023 11:41-0500 Heart rate 94 /min Chet Berumen Work Phone: [facility] [employer] 05-10-2023 11:41-0500 Respiratory rate 18 /min Chet Lachelle STEWART Work Phone: [facility] [employer] 05-10-2023 11:41-0500 SaO2% (BldA) [Mass fraction] 96 % Chet Berumen DO Work Phone: [facility] [employer] 05-10-2023 11:41-0500 Systolic blood pressure 146 mm[Hg] Chet Lachelle STEWART Work Phone: [facility] [employer] 09-04-2022 11:27-0400 Body height 160 cm Erin Lacy MD Work Phone: [employer] 09-04-2022 11:27-0400 Body mass index (BMI) [Ratio] 44.99 kg/m2 Erin Lacy MD Work Phone: [employer] 09-04-2022 11:27-0400 Body temperature 98.2 [degF] Erin Lacy MD Work Phone: [employer] 09-04-2022 11:27-0400 Body weight 115.21 kg Erin Lacy MD Work Phone: [employer] 09-04-2022 11:27-0400 Diastolic blood pressure 71 mm[Hg] Erin Lacy MD Work Phone: [employer] 09-04-2022 11:27-0400 Heart rate 88 /min Erin Lacy MD Work Phone: [employer] 09-04-2022 11:27-0400 Respiratory rate 18 /min Erin Lacy MD Work Phone: [employer] 09-04-2022 11:27-0400 SaO2% (BldA) [Mass fraction] 97 % Erin Lacy MD Work Phone: [employer] 09-04-2022 11:27-0400 Systolic blood pressure 124 mm[Hg] Erin Lacy MD Work Phone: [employer] 06-29-2022 09:49-0400 Diastolic blood pressure 57 mm[Hg] Todd Bing [facility] 06-29-2022 09:49-0400 Heart rate 73 /min Todd Bing [facility] 06-29-2022 09:49-0400 Mean blood pressure 76 mm[Hg] Todd Bing [facility] 06-29-2022 09:49-0400 Respiratory rate 16 /min Todd Bing [facility] 06-29-2022 09:49-0400 Systolic blood pressure 113 mm[Hg] Todd Bing [facility] 05-19-2022 19:28-0400 Body height 160 cm Erin Lacy MD Work Phone: [employer] 05-19-2022 19:28-0400 Body mass index (BMI) [Ratio] 45.17 kg/m2 Erin Lacy MD Work Phone: [employer] 05-19-2022 19:28-0400 Body weight 115.67 kg Erin Lacy MD Work Phone: [employer] 05-19-2022 19:25-0400 Body temperature 98.29 [degF] Erin Lacy MD Work Phone: [employer] 05-19-2022 19:25-0400 Diastolic blood pressure 68 mm[Hg] Erin Lacy MD Work Phone: [employer] 05-19-2022 19:25-0400 Heart rate 78 /min Erin Lacy MD Work Phone: [employer] 05-19-2022 19:25-0400 Respiratory rate 16 /min Erin Lacy MD Work Phone: [employer] 05-19-2022 19:25-0400 SaO2% (BldA) [Mass fraction] 98 % Erin Lacy MD Work Phone: [employer] 05-19-2022 19:25-0400 Systolic blood pressure 110 mm[Hg] Erin Lacy MD Work Phone: [employer] 05-11-2022 19:17-0500 Body height 160 cm Anuj Quinn MD Work Phone: [employer] 05-11-2022 19:17-0500 Body mass index (BMI) [Ratio] 45.06 kg/m2 Anuj Quinn MD Work Phone: [employer] 05-11-2022 19:17-0500 Body temperature 98.01 [degF] Anuj Quinn MD Work Phone: [employer] 05-11-2022 19:17-0500 Body weight 115.39 kg Anuj Quinn MD Work Phone: [employer] 05-11-2022 19:17-0500 Diastolic blood pressure 91 mm[Hg] Anuj Quinn MD Work Phone: [employer] 05-11-2022 19:17-0500 Heart rate 78 /min Anuj Quinn MD Work Phone: [employer] 05-11-2022 19:17-0500 Respiratory rate 18 /min Anuj Quinn MD Work Phone: [employer] 05-11-2022 19:17-0500 SaO2% (BldA) [Mass fraction] 96 % Anuj Quinn MD Work Phone: [employer] 05-11-2022 19:17-0500 Systolic blood pressure 121 mm[Hg] Anuj Quinn MD Work Phone: [employer] 10-12-2021 18:31-0400 Heart rate 93 /min Rishabh Mancini MD Work Phone: [employer] 10-12-2021 18:31-0400 Respiratory rate 16 /min Rishabh Mancini MD Work Phone: [employer] 10-12-2021 18:31-0400 SaO2% (BldA) [Mass fraction] 97 % Rishabh Mancini MD Work Phone: [employer] 10-12-2021 18:12-0400 Body height 160 cm Rishabh Mancini MD Work Phone: [employer] 10-12-2021 18:12-0400 Body mass index (BMI) [Ratio] 47.12 kg/m2 Rishabh Mancini MD Work Phone: [employer] 10-12-2021 18:12-0400 Body temperature 99.19 [degF] Rishabh Mancini MD Work Phone: [employer] 10-12-2021 18:12-0400 Body weight 120.66 kg Rishabh Mancini MD Work Phone: [employer] 10-12-2021 18:12-0400 Diastolic blood pressure 77 mm[Hg] Rishabh Mancini MD Work Phone: [facility] [employer] 10-12-2021 18:12-0400 Systolic blood pressure 126 mm[Hg] Rishabh Mancini MD Work Phone: [facility] [employer] 07-22-2021 10:38-0400 Body height 160 cm Clark [facility]oser MD [facility] 07-22-2021 10:38-0400 Body mass index (BMI) [Ratio] 47.63 kg/m2 Clark Moser MD [facility] 07-22-2021 10:38-0400 Body temperature 97.3 [degF] Clark Moser MD [facility] 07-22-2021 10:38-0400 Body weight 121.97 kg Clark [facility]oser MD [facility] 07-22-2021 10:38-0400 Diastolic blood pressure 88 mm[Hg] Clark [facility]oser MD [facility] 07-22-2021 10:38-0400 Heart rate 104 /min Clark Moser MD [facility] 07-22-2021 10:38-0400 Respiratory rate 18 /min Clark Moser MD [facility] 07-22-2021 10:38-0400 SaO2% (BldA) [Mass fraction] 95 % Clark Moser MD [facility] 07-22-2021 10:38-0400 Systolic blood pressure 126 mm[Hg] Clark Moser MD [facility] 05-15-2021 09:11-0500 Body height [address] [facility] 05-14-2021 10:41-0500 Body height 160 cm Farhat Vang MD Work Phone: [facility] 05-14-2021 10:41-0500 Body mass index (BMI) [Ratio] 44.96 kg/m2 Farhat Vang MD Work Phone: [facility] 05-14-2021 10:41-0500 Body temperature 97.81 [degF] Farhat Vang MD Work Phone: [facility] 05-14-2021 10:41-0500 Body weight 115.12 kg Farhat Vang MD Work Phone: [facility] 05-14-2021 10:41-0500 Diastolic blood pressure 78 mm[Hg] Farhat Vnag MD Work Phone: [facility] 05-14-2021 10:41-0500 Heart rate 98 /min Farhat Vang MD Work Phone: [facility] 05-14-2021 10:41-0500 Respiratory rate 18 /min Farhat Vang MD Work Phone: [facility] 05-14-2021 10:41-0500 SaO2% (BldA) [Mass fraction] 97 % Farhat Vang MD Work Phone: [facility] 05-14-2021 10:41-0500 Systolic blood pressure 124 mm[Hg] Farhat Vang MD Work Phone: [facility] 04-16-2021 10:15-0500 Body height 160 cm Farhat Vang MD Work Phone: [facility] 04-16-2021 10:15-0500 Body mass index (BMI) [Ratio] 44.44 kg/m2 Farhat Vang MD Work Phone: [facility] 04-16-2021 10:15-0500 Body temperature 98.01 [degF] Farhat Vang MD Work Phone: [facility] 04-16-2021 10:15-0500 Body weight 113.81 kg Farhat Vang MD Work Phone: [facility] 04-16-2021 10:15-0500 Diastolic blood pressure 78 mm[Hg] Farhat Vang MD Work Phone: [facility] 04-16-2021 10:15-0500 Heart rate 100 /min Farhat Vang MD Work Phone: [facility] 04-16-2021 10:15-0500 Respiratory rate 18 /min Farhat Vang MD Work Phone: [facility] 04-16-2021 10:15-0500 SaO2% (BldA) [Mass fraction] 96 % Farhat Vang MD Work Phone: [facility] 04-16-2021 10:15-0500 Systolic blood pressure 122 mm[Hg] Farhat aVng MD Work Phone: [facility] 03-23-2021 12:40-0500 Body height 160 cm Anuj Quinn MD Work Phone: [facility] [employer] 03-23-2021 12:40-0500 Body mass index (BMI) [Ratio] 44.46 kg/m2 Anuj Quinn MD Work Phone: [facility] [employer] 03-23-2021 12:40-0500 Body temperature 99.7 [degF] Anuj Quinn MD Work Phone: [facility] 03-23-2021 12:40-0500 Body weight 113.85 kg Anuj Quinn MD Work Phone: [facility] [employer] 03-23-2021 12:40-0500 Diastolic blood pressure 74 mm[Hg] Anuj Quinn MD Work Phone: [facility] 03-23-2021 12:40-0500 Heart rate 107 /min Anuj Quinn MD Work Phone: [facility] 03-23-2021 12:40-0500 Respiratory rate 16 /min Anuj Quinn MD Work Phone: [facility] 03-23-2021 12:40-0500 SaO2% (BldA) [Mass fraction] 96 % Anuj Quinn MD Work Phone: [facility] 03-23-2021 12:40-0500 Systolic blood pressure 131 mm[Hg] Anuj Quinn MD Work Phone: [facility] 01-15-2021 10:43-0500 Body height 160 cm Holland Ann MD Work Phone: [facility] 01-15-2021 10:43-0500 Body mass index (BMI) [Ratio] 42.55 kg/m2 Holland Ann MD Work Phone: [facility] 01-15-2021 10:43-0500 Body temperature 97.39 [degF] Holland Ann MD Work Phone: [facility] 01-15-2021 10:43-0500 Body weight 108.95 kg Holland Ann MD Work Phone: [facility] 01-15-2021 10:43-0500 Diastolic blood pressure 66 mm[Hg] Holland Ann MD Work Phone: [facility] 01-15-2021 10:43-0500 Heart rate 101 /min Holland Ann MD Work Phone: [facility] 01-15-2021 10:43-0500 SaO2% (BldA) [Mass fraction] 96 % Holland Ann MD Work Phone: [facility] 01-15-2021 10:43-0500 Systolic blood pressure 112 mm[Hg] Holland Ann MD Work Phone: [facility] 12-27-2020 18:15-0400 Body temperature 98.49 [degF] Wayne Springer MD Work Phone: [employer] Work Phone: 12-27-2020 18:15-0400 Diastolic blood pressure 77 mm[Hg] Wayne Springer MD Work Phone: [employer] Work Phone: Comment on above: Simultaneous filing. User may not have s een previous data. 12-27-2020 18:15-0400 Heart rate 98 /min Wayne Springer MD Work Phone: [employer] Work Phone: 12-27-2020 18:15-0400 Respiratory rate 20 /min Wayne Springer MD Work Phone: [employer] Work Phone: 12-27-2020 18:15-0400 SaO2% (BldA) [Mass fraction] 95 % Wayne Springer MD Work Phone: [employer] Work Phone: Comment on above: Simultaneous filing. User may not have s een previous data. 12-27-2020 18:15-0400 Systolic blood pressure 107 mm[Hg] Wayne Springer MD Work Phone: [employer] Work Phone: Comment on above: Simultaneous filing. User may not have s een previous data. 11-20-2020 21:07-0400 Body height 160 cm Anuj Quinn MD Work Phone: [employer] Work Phone: 11-20-2020 21:07-0400 Body mass index (BMI) [Ratio] 38.62 kg/m2 Anuj Quinn MD Work Phone: [employer] Work Phone: 11-20-2020 21:07-0400 Body temperature 98.6 [degF] Anuj Quinn MD Work Phone: [employer] Work Phone: 11-20-2020 21:07-0400 Body weight 98.88 kg Anuj Quinn MD Work Phone: [employer] Work Phone: 11-20-2020 21:07-0400 Diastolic blood pressure 65 mm[Hg] Anuj Quinn MD Work Phone: [employer] Work Phone: 11-20-2020 21:07-0400 Heart rate 84 /min Anuj Quinn MD Work Phone: [employer] Work Phone: 11-20-2020 21:07-0400 Respiratory rate 16 /min Anuj Quinn MD Work Phone: [employer] Work Phone: 11-20-2020 21:07-0400 SaO2% (BldA) [Mass fraction] 97 % Anuj Quinn MD Work Phone: [employer] Work Phone: 11-20-2020 21:07-0400 Systolic blood pressure 113 mm[Hg] Anuj Quinn MD Work Phone: [employer] Work Phone: 11-07-2020 16:28-0400 Body height 160 cm Nicholas Roger MD Work Phone: [employer] Work Phone: 11-07-2020 16:28-0400 Body mass index (BMI) [Ratio] 38.26 kg/m2 Nicholas Roger MD Work Phone: [employer] Work Phone: 11-07-2020 16:28-0400 Body temperature 98.8 [degF] Nicholas Roger MD Work Phone: [employer] Work Phone: 11-07-2020 16:28-0400 Body weight 97.98 kg Nicholas Roger MD Work Phone: [employer] Work Phone: 11-07-2020 16:28-0400 Diastolic blood pressure 71 mm[Hg] Nicholas Roger MD Work Phone: [employer] Work Phone: 11-07-2020 16:28-0400 Heart rate 98 /min Nicholas Roger MD Work Phone: [employer] Work Phone: 11-07-2020 16:28-0400 Respiratory rate 18 /min Nicholas Roger MD Work Phone: [employer] Work Phone: 11-07-2020 16:28-0400 SaO2% (BldA) [Mass fraction] 94 % Nicholas Roger MD Work Phone: [employer] Work Phone: 11-07-2020 16:28-0400 Systolic blood pressure 120 mm[Hg] Nicholas Roger MD Work Phone: [employer] Work Phone: 07-09-2020 10:52-0400 Body height 160 cm Zelda Bautista CNP Work Phone: [facility] 07-09-2020 10:52-0400 Body mass index (BMI) [Ratio] 41.27 kg/m2 Zelda Bautista CNP Work Phone: [facility] 07-09-2020 10:52-0400 Body weight 105.69 kg Zelda Bautista CNP Work Phone: [facility] 07-09-2020 10:52-0400 Diastolic blood pressure 70 mm[Hg] Zelda Bautista CNP Work Phone: [facility] 07-09-2020 10:52-0400 Heart rate 97 /min Zelda Bautista CNP Work Phone: [facility] 07-09-2020 10:52-0400 Systolic blood pressure 101 mm[Hg] Zelda Bautista CNP Work Phone: [facility] 06-24-2020 09:48-0400 Body mass index (BMI) [Ratio] 40.92 kg/m2 Anuj Quinn MD Work Phone: [employer] Work Phone: 06-24-2020 09:48-0400 Body temperature 97.9 [degF] Anuj Quinn MD Work Phone: [employer] Work Phone: 06-24-2020 09:48-0400 Body weight 104.78 kg Anuj Quinn MD Work Phone: [employer] Work Phone: 06-24-2020 09:48-0400 Diastolic blood pressure 64 mm[Hg] Anuj Quinn MD Work Phone: [employer] Work Phone: 06-24-2020 09:48-0400 Heart rate 120 /min Anuj Quinn MD Work Phone: [employer] Work Phone: 06-24-2020 09:48-0400 Respiratory rate 18 /min Anuj Quinn MD Work Phone: [employer] Work Phone: 06-24-2020 09:48-0400 SaO2% (BldA) [Mass fraction] 100 % Anuj Quinn MD Work Phone: [employer] Work Phone: 06-24-2020 09:48-0400 Systolic blood pressure 115 mm[Hg] Anuj Quinn MD Work Phone: [employer] Work Phone: 06-09-2020 10:44-0400 Body height 160 cm Lelo Gallegos MD Work Phone: [facility] 06-09-2020 10:44-0400 Body mass index (BMI) [Ratio] 41.27 kg/m2 Lelo Gallegos MD Work Phone: [facility] 06-09-2020 10:44-0400 Body weight 105.69 kg Lelo Gallegos MD Work Phone: [facility] 06-09-2020 10:44-0400 Diastolic blood pressure 75 mm[Hg] Lelo Gallegos MD Work Phone: [facility] 06-09-2020 10:44-0400 Heart rate 116 /min Lelo Gallegos MD Work Phone: [facility] 06-09-2020 10:44-0400 Systolic blood pressure 110 mm[Hg] Lelo Gallegos MD Work Phone: [facility] 03-26-2020 22:17-0500 Pulse (Heart Rate) 98 /min [facility] [place] [place] 03-26-2020 21:43-0500 BP Diastolic 66 mm[Hg] [facility] [place] [facility] [place] 03-26-2020 21:43-0500 BP Systolic 99 mm[Hg] [facility] [place] 03-26-2020 21:43-0500 Pulse Oximetry 95 % Brie Jorgensen [facility] , [place] 03-26-2020 20:50-0500 Respiratory Rate 16 /min [facility] [place] 03-26-2020 20:13-0500 BMI (Body Mass Index) 40.14 kg/m2 Brie Jorgensen [facility], [place] 03-26-2020 20:13-0500 Body Temperature 98.2 [degF] [facility] [place] 03-26-2020 20:13-0500 Body weight 102.[address] [facility] , [place] 02-15-2020 18:22-0500 BMI (Body Mass Index) 39.75 kg/m2 [facility] [place] [place] 02-15-2020 18:22-0500 Body Temperature 98.6 [degF] [facility] [place] 02-15-2020 18:22-0500 Body weight 101.[address] [facility] , [place] 02-15-2020 18:22-0500 BP Diastolic 78 mm[Hg] [facility] [place] [facility] [place] 02-15-2020 18:22-0500 BP Systolic 127 mm[Hg] [facility] [place] [facility] [place] 02-15-2020 18:22-0500 Height [address] [facility] , [place] 02-15-2020 18:22-0500 Pulse (Heart Rate) 92 /min Brie Jorgensen [facility], [place] 02-15-2020 18:22-0500 Pulse Oximetry 99 % Brie Josh [facility] , [place] 02-15-2020 18:22-0500 Respiratory Rate 20 /min [facility], [place] 11-20-2019 18:48-0400 BP Diastolic 75 mm[Hg] [facility], [place] 11-20-2019 18:48-0400 BP Systolic 128 mm[Hg] [facility], [place] 11-20-2019 18:48-0400 Pulse (Heart Rate) 83 /min [facility], [place] 11-20-2019 18:48-0400 Pulse Oximetry 97 % [facility], [place] 11-20-2019 18:48-0400 Respiratory Rate 18 /min [facility], [place] 11-20-2019 17:00-0400 BMI (Body Mass Index) 36.31 kg/m2 [facility], [place] 11-20-2019 17:00-0400 Body Temperature 98.4 [degF] [facility], [place] 11-20-2019 17:00-0400 Body weight 92.99 kg [facility], [place] 11-03-2019 11:37-0400 BMI (Body Mass Index) 34.47 kg/m2 [facility], [place] 11-03-2019 11:37-0400 Body Temperature 98.71 [degF] [facility], [place] 11-03-2019 11:37-0400 Body weight 88.27 kg [facility], [place] 11-03-2019 11:37-0400 BP Diastolic 66 mm[Hg] [facility], [place] 11-03-2019 11:37-0400 BP Systolic 117 mm[Hg] [facility], [place] 11-03-2019 11:37-0400 Height 160 cm [facility], [place] 11-03-2019 11:37-0400 Pulse (Heart Rate) 87 /min [facility], [place] 11-03-2019 11:37-0400 Pulse Oximetry 99 % [facility] [place] 11-03-2019 11:37-0400 Respiratory Rate 20 /min [facility] [place] 08-13-2019 19:42-0400 BMI (Body Mass Index) 31 kg/m2 [facility] 08-13-2019 19:42-0400 Body Temperature 98.6 [degF] [facility] 08-13-2019 19:42-0400 Body weight 79.[address] [facility] 08-13-2019 19:42-0400 Height [address] [facility] 08-13-2019 19:40-0400 BP Diastolic 60 mm[Hg] [facility] 08-13-2019 19:40-0400 BP Systolic 156 mm[Hg] [facility] 08-13-2019 19:40-0400 Pulse (Heart Rate) 138 /min [facility] 08-13-2019 19:40-0400 Pulse Oximetry 98 % [facility] 08-13-2019 19:40-0400 Respiratory Rate 16 /min [facility] 06-17-2019 12:45-0400 Respiratory Rate 18 /min [facility] 06-17-2019 07:54-0400 Body Temperature 97.81 [degF] [facility] 06-17-2019 07:54-0400 BP Diastolic 66 mm[Hg] [facility] 06-17-2019 07:54-0400 BP Systolic 99 mm[Hg] [facility] 06-17-2019 07:54-0400 Pulse (Heart Rate) 82 /min [facility] 06-17-2019 07:54-0400 Pulse Oximetry 94 % [facility] 06-14-2019 08:15-0400 BMI (Body Mass Index) 32.92 kg/m2 [facility] 06-14-2019 08:15-0400 Body weight 81.65 kg [facility] 06-14-2019 08:15-0400 Height 157.5 cm [facility] 06-14-2019 04:20-0400 Pulse (Heart Rate) 83 /min Brie [facility] [place], [place] 06-14-2019 04:05-0400 BP Diastolic 58 mm[Hg] [facility] [place] [facility] [place] 06-14-2019 04:05-0400 BP Systolic 95 mm[Hg] [facility] [place] [facility] [place] 06-14-2019 04:05-0400 Pulse Oximetry 95 % [facility] [place] [facility] [place] 06-14-2019 01:12-0400 Respiratory Rate 18 /min [facility] [place] 06-14-2019 00:10-0400 Body Temperature 100.51 [degF] [facility] [place] 06-13-2019 22:00-0400 BMI (Body Mass Index) 32.31 kg/m2 [facility] [place] 06-13-2019 22:00-0400 Body weight 82.74 kg [facility] [place] 06-13-2019 22:00-0400 Height 160 cm [facility] [place] 04-28-2019 19:58-0500 Body Temperature 98.8 [degF] [facility] [place] 04-28-2019 19:58-0500 BP Diastolic 70 mm[Hg] [facility] [place] [facility] [place] 04-28-2019 19:58-0500 BP Systolic 98 mm[Hg] [facility] [place] [facility] [place] 04-28-2019 19:58-0500 Pulse (Heart Rate) 119 /min [facility] [place] 04-28-2019 19:58-0500 Pulse Oximetry 100 % Roslyn [facility]orgensen [facility] [place] , [place] 04-28-2019 19:58-0500 Respiratory Rate 30 /min [facility] [place] 04-28-2019 19:54-0500 BMI (Body Mass Index) 30.65 kg/m2 [facility] [place] 04-28-2019 19:54-0500 Body weight 78.47 kg Roslyn Jrogensen [facility] [place] , [place] 04-28-2019 19:54-0500 Height [address] [facility] , [place] Encounters Encounter Date Encounter Type Care Provider Facility Start: 10-26-2023 End: 10-26-2023 ambulatory MARK ELIANA Not Available Start: 10-05-2023 End: 10-05-2023 ambulatory VIOLET JUAREZ [facility] Start: 10-05-2023 End: 10-05-2023 Subsequent hospital visit by physician Violet Juarez MD Work Phone: [id number] Start: 10-05-2023 End: 10-05-2023 Emergency department patient visit VIOLET Richard FRANKLINOY [facility] Start: 10-05-2023 End: 10-05-2023 Emergency department patient visit LINDA Lilly [facility] Start: 09-12-2023 End: 09-12-2023 ambulatory MARK ELIANA Not Available Start: 08-16-2023 End: 08-16-2023 ambulatory MARK ELIANA Not Available Start: 07-26-2023 End: 07-26-2023 ambulatory BLAKE Hatch JAMARI [facility] Start: 07-19-2023 End: 07-19-2023 ambulatory MARK ELIANA Not Available Start: 06-21-2023 End: 06-21-2023 ambulatory MARK ELIANA Not Available Start: 05-20-2023 End: 05-20-2023 ambulatory MARK ELIANA Not Available Start: 05-13-2023 End: 05-13-2023 Emergency department patient visit Jonathan Martinez Facility:[facility] Start: 05-13-2023 End: 05-13-2023 Emergency department patient visit Jonathan Martinez [facility] Start: 05-11-2023 End: 05-12-2023 Emergency department patient visit Zac Britton Donnie Facility:[facility] Start: 05-11-2023 End: 05-11-2023 Emergency department patient visit Reginaparker Britton Donnie [facility] Start: 05-10-2023 End: 05-10-2023 Emergency department patient visit LINDA Vijaya [facility] Start: 05-10-2023 End: 05-10-2023 Emergency department patient visit Chet Berumen DO Work Phone: [facility] Comment on above: Toothache (Primary D x); Dental decay Start: 12-27-2022 End: 12-27-2022 ambulatory MARK DUMONT [facility] Start: 11-23-2022 End: 11-23-2022 ambulatory MARK DUMONT [facility] Start: 09-04-2022 End: 09-04-2022 Emergency department patient visit Erin Lacy MD Work Phone: [facility] Comment on above: Sprain of right ankl e, unspecified ligament, initial encounter (Primary Dx) Start: 06-29-2022 End: 06-30-[address] MARK DUMONT . Facility: Start: 06-29-2022 End: 06-30-2022 ambulatory Linda Sheppard Facility:[facility] Start: 06-29-2022 End: 06-29-2022 Pain Management Todd Smart [facility] Start: 06-14-2022 End: 06-14-[address] MARK DUMONT . Facility: Start: 05-19-2022 End: 05-19-2022 Emergency department patient visit Erin Lacy MD Work Phone: [facility] Comment on above: Dry socket (Primary Dx) Start: 05-11-2022 End: 05-11-2022 Emergency department patient visit Anuj Quinn MD Work Phone: [facility] Comment on above: Masseter muscle spas m (Primary Dx); Other acute postprocedural pain Start: 03-30-[address] MARK DUMONT . Facili ty:[facility] Start: 03-29-2022 End: 03-29-2022 Subsequent hospital visit by physician [facility] Start: 10-12-2021 End: 10-12-2021 Emergency department patient visit Rishabh Mancini MD Work Phone: [facility] Comment on above: Acute bronchitis, un specified organism (Primary Dx) Start: 07-22-2021 End: 07-22-2021 Emergency department patient visit Clark Moser MD Work Phone: [facility] Comment on above: Acute pharyngitis, u nspecified etiology (Primary Dx) Start: 07-07-2021 ambulatory BRIE ROCA [facility] Ambulatory Start: 06-18-2021 ambulatory FARHAT PASTOR [facility] Ambulatory Start: 06-17-2021 End: 06-18-2021 [facility] Start: 05-15-2021 End: 05-19-2021 ambulatory [facility] Start: 05-15-2021 End: 05-15-2021 Nutrition therapy Farhat Vang MD Work Phone: [facility] Comment on above: Morbid obesity with body mass index (BMI) of 40.0 or higher ([facility]) Start: 05-14-2021 End: 05-18-2021 [facility] Start: 05-14-2021 End: 05-14-2021 Office outpatient visit 15 minutes Farhat Vang MD Work Phone: [facility] Comment on above: Anxiety and depressi on (Primary Dx); At risk for obstructive sleep apnea; Chronic bilateral low back pain without sciatica; Hepatitis C antibody positive in blood; Body mass index 40.0-44.9, adult (HCC); History of opioid abuse (HCC) Start: 04-16-2021 End: 04-20-2021 [facility] Start: 04-16-2021 End: 04-16-2021 Initial preventive medicine new pt age 18-39yrs Farhat Vang MD Work Phone: [facility] Comment on above: Encounter for [facility] adult medical examination with abnormal findings (Primary Dx); Anxiety and depression; History of opioid abuse (HCC); Morbid obesity with body mass index (BMI) of 40.0 or higher (HCC) Start: 04-16-2021 End: 04-16-2021 Patient encounter status Farhat Vang MD Work Phone: [facility] Start: 03-23-2021 End: 03-23-2021 Emergency department patient visit Anuj Quinn MD Work Phone: [facility] Comment on above: COVID-19 (Primary Dx ); Omphalitis in adult Start: 02-16-2021 End: 02-20-2021 ambulatory [facility] Start: 02-12-2021 End: 02-16-2021 ambulatory PHYSICIAN [facility] Start: 02-10-2021 End: 02-14-2021 ambulatory [facility] Start: 02-02-2021 End: 02-06-2021 ambulatory PHYSICIAN [facility] Start: 01-15-2021 Documentation procedure Jeimy goodman [facility] Start: 01-15-2021 End: 01-15-2021 ambulatory HOLLAND WHIPPLE SETH [facility] Ambulatory Start: 01-15-2021 End: 01-15-2021 Office outpatient new 30 minutes Holland Ann MD Work Phone: [facility] Comment on above: Hemorrhoids, unspeci fied hemorrhoid type Start: 12-29-2020 End: 01-02-2021 ambulatory PHYSICIAN [facility] Start: 12-27-2020 End: 12-27-2020 Emergency department patient visit Wayne Springer MD Work Phone: [facility] Comment on above: Viral syndrome (Prim prakash Dx) Start: 11-20-2020 End: 11-20-2020 Emergency department patient visit Anuj Quinn MD Work Phone: [facility] Comment on above: Strain of rhomboid m uscle, initial encounter; Chest wall muscle strain, initial encounter Start: 11-07-2020 End: 11-07-2020 Emergency department patient visit Nicholas Roger MD Work Phone: [facility] Comment on above: Viral URI (Primary D x) Start: 08-28-2020 End: 08-30-2020 Evaluation and management of inpatient ROSLYN HERNANDEZ [facility] Start: 08-25-2020 End: 08-25-2020 ambulatory PHYSICIAN [facility] Start: 07-29-2020 End: 08-02-2020 ambulatory PHYSICIAN [facility] Start: 07-22-2020 End: 07-26-2020 ambulatory LELO ADAMS GALLEGOS [facility] Start: 07-22-2020 End: 07-22-2020 Telemedicine consultation with patient Lelo Gallegos MD Work Phone: [facility] Comment on above: Diet controlled gest ational diabetes mellitus (GDM) in third trimester Start: 07-10-2020 ambulatory LELO GALLEGOS [facility] Ambulatory Start: 07-09-2020 End: 07-09-2020 ambulatory ZELDA BAUTISTA [facility] Start: 07-09-2020 End: 07-09-2020 Office outpatient visit 15 minutes Zelda Bautista CNP Work Phone: [facility] Comment on above: Diet controlled gest ational diabetes mellitus (GDM) in third trimester (Primary Dx) Start: 06-24-2020 End: 06-24-2020 Emergency department patient visit Anuj Quinn MD Work Phone: [facility] Comment on above: Acute frontal sinusi tis, recurrence not specified (Primary Dx) Start: 06-10-2020 End: 06-10-2020 Nutrition therapy Lelo Gallegos Work Phone: [facility] Comment on above: Diet controlled gest ational diabetes mellitus (GDM) in second trimester Start: 06-09-2020 End: 06-09-2020 Office outpatient new 30 minutes Roslyn Stevenson MD Work Phone: [facility] Comment on above: Diet controlled gest ational diabetes mellitus (GDM) in second trimester Start: 05-27-2020 End: 05-31-2020 ambulatory PHYSICIAN [facility] Start: 05-21-2020 End: 05-25-2020 ambulatory PHYSICIAN [facility] Start: 03-26-2020 End: 03-26-2020 Emergency department patient visit Brie Moreno Work Phone: [facility] Comment on above: Atypical pneumonia ( Primary Dx) Start: 02-15-2020 End: 02-15-2020 Emergency department patient visit Brie Moreno Work Phone: [facility] Comment on above: Pain, dental (Primar y Dx); Acute gingivitis; Alveolar osteitis Start: 11-20-2019 End: 11-20-2019 Emergency department patient visit Crescenciomagui Puri Kai Work Phone: [facility] Comment on above: Bacterial vaginosis (Primary Dx); Trichimoniasis; Furuncle of left axilla Start: 11-03-2019 End: 11-03-2019 Emergency department patient visit Wayne Wahl Gian Work Phone: [facility] Comment on above: Poison arabella (Primary Dx) Start: 08-20-2019 End: 08-21-[address] [facility] Start: 08-20-2019 End: 08-20-2019 Subsequent hospital visit by physician [facility] Start: 08-13-2019 End: 08-13-2019 Emergency department patient visit Christian Redmond Juan Work Phone: [facility] Comment on above: Heroin abuse (HCC) ( Primary Dx) Start: 06-20-2019 End: 06-20-2019 Patient encounter procedure Alisa Palencia Work Phone: [facility] Comment on above: Hepatitis C virus in fection without hepatic coma, unspecified chronicity (Primary Dx) Start: 06-18-2019 End: 06-18-2019 Documentation procedure Taryn Torres [facility] Start: 06-18-2019 [facility] Comment on above: Transition Of Care Start: 06-18-2019 End: 06-18-2019 Patient encounter procedure Taryn Torres [facility] Start: 06-14-2019 End: 06-17-2019 Evaluation and management of inpatient [facility] Work Phone: [facility] Comment on above: Elevated LFTs; IVDA (intravenous drug abuse) complicating (HCC) Start: 06-13-2019 End: 06-14-2019 Emergency department patient visit Brie Moreno Work Phone: [facility] Comment on above: Abdominal pain, unsp ecified abdominal location (Primary Dx); Urinary tract infection with hematuria, site unspecified; Viral hepatitis without hepatic coma, unspecified chronicity, unspecified viral hepatitis type; Polysubstance abuse (HCC); Hyperbilirubinemia Start: 04-28-2019 End: 04-28-2019 Emergency department patient visit Roslyn Keating Work Phone: [facility] Comment on above: Accidental overdose of heroin, initial encounter (HCC) (Primary Dx) Start: 12-20-2016 End: 01-02-2020 Cancer cervix - screening done Lelo Gallegos MD Work Phone: [facility] Start: 12-20-2016 End: 01-02-2020 Encounter for gynecological examination (general) (routine) without abnormal findings Jeiym Tan LPN [facility] Procedures Date Procedure Procedure Detail Performing [...] 07-22-2021 Iaadiadoo streptococ cus group a Clark P Shanti MD Work Phone: Start: 03-23-2021 BASIC METABOLIC [...] [Identifier] in Cervix by Cyto stain Jeimy Lozanono HOLDERN Start: 12-27-2020 COVID-, RAPID Wayne Springer MD Work Phone: Start: 12-27-2020 Iaadiadoo streptococ cus group a Wayne Springer MD Work Phone: Start: 11-20-2020 Radex shoulder compl ete minimum 2 views Anuj Quinn Work Phone: Start: 07-09-2020 Hemoglobin glycosylated a1c Zelda Haywardottoniel Bautista [facility] Work Phone: Start: 06-09-2020 Hemoglobin glycosylated [...] 2000 panel - Serum or Plasma Raquib Gonzales [facility] Work Phone: Start: 06-17-2019 Hepatic function 200 0 panel - Serum or Plasma Raquib Gonzales [place] Work Phone: Start: 06-16-2019 Bilirubin.direct [Mass/volume] in Serum or Plasma Indra Matthew Pruitt Work Phone: Start: 06-16-2019 Complete blood [...] Start: 05-18-2019 Adult depression scr eening assessment [facility] Start: 08-05-2016 Microscopic observat ion [Identifier] in Cervix by Cyto stain [facility] Start: 04-05-2011 Microscopic observat ion [Identifier] in Cervix by Cyto stain Erin Lacy MD Work Phone: Human , f unction (observable entity) Todd Bing Comment on above: x4 Plan of Treatment Date Care Activity Detail Author Start: 2040 Shingles Vaccine (1 of 2) Shingles Vaccine (1 of 2) [facility] [place]- [place], [place] Start: 12-29-2025 Screening for malignant neoplasm of cervix Pap Smear [facility] Start: 10-31-2024 Screening for malignant neoplasm of cervix Pap Smear [facility] Start: 12-30-2023 Screening for malignant neoplasm of cervix [facility] Start: 11-11-2023 Respiratory Syncytial Virus (RSV) or age 60 yrs+ (1 - Risk 1-dose series) Respiratory Syncytial Virus (RSV) or age 60 yrs+ (1 - Risk 1-dose series) [facility] Start: 11-10-2023 End: 11-10-2023 Patient encounter procedure 11/10/2023 10:00 AM EDT Routine [facility] [address] [address] [facility] Start: 10-27-2023 End: 10-27-2023 Patient encounter procedure 10/27/2023 10:00 AM EDT [facility] [address] [place] [address] [facility] Start: 10-13-2023 End: 10-13-2023 Patient encounter procedure 10/13/2023 10:00 AM EDT [facility] [address] [place] [address] Return in about 2 weeks (around 10/04/2023) for twins, dopplers, growth, transvag. [facility] Comment on above: Return in about 2 weeks (around ) for twins, dopplers, growth, transvag. Start: 10-07-2023 Tdap Vaccine during Tdap Vaccine during [facility] Start: 10-06-2023 Influenza vaccination Flu vaccine (#1) [facility] Start: 10-31-2022 Screening for malignant neoplasm of cervix [facility] Work Phone: Start: 10-05-2022 Influenza vaccination Flu vaccine (#1) [employer] [facility] Start: 04-16-2022 History and physical examination, annual for health maintenance Wellness Visit [facility] Start: 02-13-2022 Depression Remission Assessment (PHQ9) Depression Remission Assessment (PHQ9) [facility] Start: 12-29-2021 History and physical examination, annual for health maintenance Wellness Visit [facility] Start: 11-12-2021 End: 11-12-2021 Patient encounter procedure 11/12/2021 Office Visit Primary Care Farhat Vang MD [address] [address] [facility] Start: 11-05-2021 Influenza vaccination [facility] Start: 10-05-2021 Influenza vaccination Flu vaccine (#1) [facility] Start: 06-26-2021 End: 06-26-2021 Nutrition therapy 06/26/2021 Nutrition Nutrition Farhat Vang MD [address] [facility] [address] [place] [address] [facility] Start: 05-15-2021 End: 05-15-2021 Nutrition therapy 05/15/2021 Nutrition Nutrition Angelito Harvey RD [facility] Start: 05-14-2021 End: 05-14-2021 Patient encounter procedure 05/14/2021 Office Visit Primary Care Farhat Vang MD [address] [facility] [address] [place] [address] [facility] Start: 03-17-2021 Depression screening using PHQ-9 (Patient Health Questionnaire 9) score Depression Screening (PHQ9) [facility] Start: 01-15-2021 Depression Remission Assessment (PHQ9) Depression Remission Assessment (PHQ9) [facility] Start: 01-09-2021 Hemoglobin A1c measurement A1C [facility] Start: 12-09-2020 HbA1c (Bld) [Mass fraction] A1C [facility] Start: 12-09-2020 Hemoglobin A1c measurement A1C [facility] Start: 11-05-2020 Influenza vaccination [facility] Start: 10-31-2020 History and physical examination, annual for health maintenance Wellness Visit [facility] Start: 08-28-2020 End: 08-28-2020 Admission to same day surgery center 08/28/2020 Surgery Obstetrics Roslyn Stevenson MD [address] [place] [address] [phone] SECTION [facility] Comment on above: SECTION Start: 08-28-2020 Subsequent hospital visit by physician 08/28/2020 Hospital Encounter Obstetrics Roslyn Stevenson MD [address] [place] [address] [phone] [facility] Start: 08-25-2020 End: 08-25-2020 Office Visit 08/25/2020 Office Visit Endocrinology Zelda Bautista, NURSING SERVICES MANAGER [address] [place] [address] [phone] [facility] Start: 07-31-2020 End: 07-31-2020 Office Visit 07/31/2020 Office Visit Endocrinology Benito Krueger, MARK [address] [place] [address] [phone] [facility] Start: 07-29-2020 End: 07-29-2020 Patient encounter procedure 07/29/2020 Routine Obstetrics and Gynecology Regla Dias CNM [address] [place] [phone] [facility] [employer] [facility] Start: 07-22-2020 End: 07-22-2020 Telemedicine consultation with patient 07/22/2020 Telemedicine Nutrition Lelo Gallegos MD [address] [place] [address] [phone] Neris Ulloa [facility] Start: 07-17-2020 End: 07-17-2020 Patient encounter procedure 07/17/2020 Routine Obstetrics and Gynecology Yvonne Santos MD [address] [place] [phone] [facility] [employer] [facility] Start: 07-09-2020 End: 07-09-2020 Office Visit 07/09/2020 Office Visit Endocrinology Zelda Bautista, NURSING SERVICES MANAGER [address] [place] [address] [phone] [facility] Start: 07-04-2020 End: 07-04-2020 Patient encounter procedure 07/04/2020 Routine Obstetrics and Gynecology Radha Pantoja MD [address] [place] [phone] [facility] [employer] [facility] Start: 06-26-2020 End: 06-26-2020 Patient encounter procedure 06/26/2020 Office Visit Endocrinology Janie Chen PA-C [address] [place] [address] [phone] [facility] Start: 06-24-2020 End: 06-24-2020 Nutrition [facility] Start: 06-19-2020 End: 06-19-2020 Routine 06/19/2020 Routine Obstetrics and Gynecology Larissa, Regla Arriaga CNM [address] [place] [address] [facility] [employer] [facility] Start: 05-17-2020 Depression screening using PHQ-9 (Patient Health Questionnaire 9) score Depression Screening (PHQ9) [facility] Start: 2020 Screening for malignant neoplasm of cervix [facility] Start: 02-26-2020 End: 02-26-2020 Initial 02/26/2020 Initial Obstetrics and Gynecology Jai Huerta MD [address] [facility] [address] [place] [address] [facility] [employer] Start: 11-06-2019 Influenza vaccination [place], [place] Start: 11-06-2019 Influenza vaccination given [facility] Start: 08-06-2019 Screening for malignant neoplasm of cervix Pap Smear [facility] Start: 06-20-2019 End: 06-20-2019 Office Visit 06/20/2019 Office Visit Transition of Care Alisa Palencia, NURSING SERVICES MANAGER [address] [facility] [address] [place] [address] [phone] [facility] Start: 11-05-2018 Influenza vaccination Flu vaccine (#1) [place] Start: 11-05-2018 Influenza vaccination given Sequential Influenza Vaccine (#1) [facility] Start: 03-21-2015 Cervical cancer screen Cervical cancer screen [place], [place] Start: 03-21-2015 Screening for malignant neoplasm of cervix Cervical cancer screen [place] Start: 04-05-2014 Screening for malignant neoplasm of cervix Pap smear [facility] Start: 2009 DTaP/Tdap/Td vaccine (1 - Tdap) DTaP/Tdap/Td vaccine (1 - Tdap) [place] Start: 2009 Hepatitis B vaccine (1 of 3 - Risk 3-dose series) Hepatitis B vaccine (1 of 3 - Risk 3-dose series) [facility] Work Phone: Start: 2008 Hepatitis C screening Hepatitis C screen [facility] Start: 2006 COVID-19 Vaccine (1) COVID-19 Vaccine (1) [facility] Start: 2005 HIV screen HIV screen [place], [place] Start: 2005 HIV screening HIV screen [facility] Start: 2002 COVID-19 Vaccine (1) COVID-19 Vaccine (1) [facility] Start: 2002 Depression Monitoring Depression Monitoring [facility] Start: 2001 DTaP/Tdap/Td vaccine (1 - Tdap) DTaP/Tdap/Td vaccine (1 - Tdap) [place] Start: 2001 DTaP/Tdap/Td vaccine (5 - Tdap) DTaP/Tdap/Td vaccine (5 - Tdap) [facility] Start: 2000 Albumin DL <= 20 mg/L (U) [Mass/Vol] Urine Microalbumin [facility] Start: 2000 Diabetic foot examination Foot Exam [facility] Start: 2000 Microalbumin measurement, urine, quantitative Urine Microalbumin [facility] Start: 2000 Ophthalmic examination and evaluation Ophthalmology Exam [facility] Start: 1996 Pneumococcal 0-64 years Vaccine (1 of 1 - PPSV23) Pneumococcal 0-64 years Vaccine (1 of 1 - PPSV23) [place] Start: 1996 Pneumococcal Vaccine: Ped or At-Risk (1 of 2 - PPSV23) Pneumococcal Vaccine: Ped or At-Risk (1 of 2 - PPSV23) [facility] Start: 1995 COVID-19 Vaccine (1) COVID-19 Vaccine (1) [facility] Start: 1993 History and physical examination, annual for health maintenance Wellness Visit [facility] Start: 1991 Varicella vaccine (1 of 2 - 2-dose childhood series) Varicella vaccine (1 of 2 - 2-dose childhood series) [facility] Start: 1990 COVID-19 Vaccine (#1) COVID-19 Vaccine (#1) [facility] Start: 1990 Hepatitis B vaccine (1 of 3 - 3-dose series) Hepatitis B vaccine (1 of 3 - 3-dose series) [facility] Start: 1990 Hepatitis C screening Hepatitis C screen [facility] Start: 1990 Tetanus vaccination Tetanus: Every 10yrs [facility] Anti smooth muscle antibody IgA level Anti-Smooth Muscle Antibody Lab Add-On 06/15/2019 1:50 PM EDT [facility] Antimitochondrial antibody titer Antimitochondrial Antibody Lab Add-On 06/15/2019 1:50 PM EDT [facility] End: 11-20-2019 C.trachomatis N.gonorrhoeae DNA, Urine C.trachomatis N.gonorrhoeae DNA, Urine Microbiology STAT One Time for 1 Occurrences starting 11/20/2019 until 11/20/2019 [place] Comment on above: One Time for 1 Occurrences starting 11/05 until 11/20/2019 C.trachomatis N.gonorrhoeae DNA, Urine C.trachomatis N.gonorrhoeae DNA, Urine Microbiology Stat [employer] Label print 11/20/2019 5:55 PM EDT [place] End: 03-26-2020 Covid-19 Ambulatory Covid-19 Ambulatory Lab Routine Once for 1 Occurrences starting 03/26/2020 until 03/26/2020 [place] Comment on above: Once for 1 Occurrences starting 03/26/19 21 until 03/26/2020 Covid-19 Ambulatory Covid-19 Amb ulatory Lab Routine 03/26/2020 8:44 PM EST [place] End: 06-13-2019 Culture, Blood 1 Culture, Blood 1 Microbiology STAT One Time for 1 Occurrences starting 06/13/2019 until 06/13/2019 [place] Comment on above: One Time for 1 Occurrences starting 10/2019 until 06/13/2019 Culture, Blood 1 [facility] End: 03-23-2021 Culture, Wound [facility] Work Phone: Comment on above: One Time for 1 Occurrences starting 03/07 until 03/23/2021 Cytomegalovirus DNA assay CMV DN A Detection and Quant, Blood Lab Routine 06/15/2019 1:50 PM EDT [facility] Kirsten-Hazel Virus P CR, Quantitative Kirsten-Hazel Virus PCR, Quantitative Lab Routine 06/15/2019 1:50 PM EDT [facility] End: 04-16-2022 Hemoglobin A1c/Hemoglobin.total in Blood Hemoglobin A1c Lab Routine Encounter for general adult medical examination with abnormal findings 1 Occurrences starting 04/16/2021 until 04/16/2022 [facility] Work Phone: Comment on above: 1 Occurrences starting 04/16/2021 until 04/16/2022 Hemoglobin A1c/Hemoglobin.total in Blood Hemoglobin A1c Lab Routine Encounter for general adult medical examination with abnormal findings 04/16/2021 10:58 AM [facility] End: 04-16-2022 Hepatitis C antibody measurement Hepatitis C Antibody Lab Routine Encounter for general adult medical examination with abnormal findings 1 Occurrences starting 04/16/2021 until 04/16/2022 [facility] Comment on above: 1 Occurrences starting 04/16/2021 until 04/16/2022 Hepatitis C antibody measurement Hepatitis C Antibody Lab Routine Encounter for general adult medical examination with abnormal findings 04/16/2021 10:58 AM [facility] MDI Treatment MDI Treatment Re spiratory Care Routine Every 6hr As Needed until discontinued starting 03/26/2020 [facility] MD Comment on above: Every 6hr As Needed until discontinued s tarting 03/26/2020 Nonrebreather mask oxygen Nonreb reather mask oxygen Respiratory Care Routine As Needed until discontinued starting 10/05/[address] [facility] Comment on above: As Needed until discontinued starting Nuclear Ab IF (S) [Titer] KENIA La b Add-On 06/15/2019 1:50 PM EDT [facility] End: 06-24-2020 Urinalysis, reflex to microscopic Urinalysis, reflex to microscopic Lab STAT One Time for 1 Occurrences starting 06/24/2020 until 06/24/2020 [employer] Work Phone: Comment on above: One Time for 1 Occurrences starting 06/06 until 06/24/2020 End: 05-14-2022 XR Lumbar Spine Complete AP/Lat w Obls XR Lumbar Spine Complete AP/Lat w Obls Imaging Routine Chronic bilateral low back pain without sciatica 1 Occurrences starting 05/14/2021 until 05/14/2022 [facility] Work Phone: Comment on above: 1 Occurrences starting 05/14/2021 until 05/14/2022 Payers Date Payer Category Payer Medicaid [facility] MEDICA[facility] [employer] [id number] 2021-Present [phone] [address] [place] [address] [id number]. 7.3.238347.315 2021 Unknown [id number] 1.2.840.826576.1.13.239.2. 7.3.255041.315 2017 Medicaid [id number] 1.2.840.373865.1.13.385.2. 7.3.831452.315 2012 Medicaid [id number] 1.2.840.289918.1.13.239.2. 7.3.642472.315 2012 Medicaid [id number] 2008 Private Health Insurance [id number] 1990 Unknown [id number] 2.16.840.1.651955.3.579.2. 173 1990 Unknown [id number] 2.16.840.1.968446.3.579.2. 900 1990 Unknown [id number] 2.16.840.1.872449.3.579.2. 900 1990 Unknown [id number] 2.16.840.1.781311.3.579.2. 900 1990 Unknown [id number] 2.16.840.1.890556.3.579.2. 900 1990 Unknown [id number] 2.16.840.1.839638.3.579.2. 900 1990 Unknown [id number] 2.16.840.1.491888.3.579.2. 900 1990 Unknown [id number] 2.16.840.1.783596.3.579.2. 900 1990 Unknown [id number] 2.16.840.1.013598.3.579.2. 903 1990 Unknown [id number] 2.16.840.1.066559.3.579.2. 903 1990 Unknown [id number] 2.16.840.1.365671.3.579.2. 903 1990 Unknown [id number] 2.16.840.1.814369.3.579.2. 903 1990 Unknown [id number] 2.16.840.1.466608.3.579.2. 903 1990 Unknown [id number] 2.16.840.1.545339.3.579.2. 903 1990 Unknown [id number] 2.16.840.1.602414.3.579.2. 903 1990 Unknown [id number] 2.16.840.1.107603.3.579.2. 903 1990 Unknown [id number] 2.16.840.1.588318.3.579.2. 903 1990 Unknown [id number] 2.16.840.1.599743.3.579.2. 903 1990 Unknown [id number] 2.16.840.1.743582.3.579.2. 903 1990 Unknown [id number] 2.16.840.1.200487.3.579.2. 903 1990 Unknown [id number] 2.16.840.1.926542.3.579.2. 903 1990 Unknown [id number] 2.16.840.1.619673.3.579.2. 903 1990 Unknown [id number] 2.16.840.1.388757.3.579.2. 903 1990 Unknown [id number] 2.16.840.1.936999.3.579.2. 593 1990 Unknown [id number] 2.16.840.1.169346.3.579.2. 593 1990 Unknown [id number] 2.16.840.1.510291.3.579.2. 593 1990 Unknown [id number] 2.16.840.1.057253.3.579.2. 593 1990 Unknown [id number] 2.16.840.1.973382.3.579.2. 727 1990 Unknown [id number] 2.16.840.1.536032.3.579.2. 727 1990 Unknown [id number] 2.16.840.1.620624.3.579.2. 727 1990 Unknown [id number] 2.16.840.1.007346.3.579.2. 174 1990 Unknown [id number] 2.16.840.1.637934.3.579.2. 174 1990 Unknown [id number] 2.16.840.1.137299.3.579.2. 174 1990 Unknown [id number] 2.16.840.1.832623.3.579.2. 174 1990 Unknown [id number] 2.16.840.1.085944.3.579.2. 174 1990 Unknown [id number] 2.16.840.1.022254.3.579.2. 1259 1990 Unknown [id number] 2.16.840.1.694797.3.579.2. 1259 1990 Unknown [id number] 2.16.840.1.142238.3.579.2. 1259 1990 Unknown [id number] 2.16.840.1.275366.3.579.2. 1259 1990 Unknown [id number] 2.16.840.1.151944.3.579.2. 1259 1990 Unknown [id number] 2.16.840.1.808650.3.579.2. 1259 1990 Unknown [id number] 2.16.840.1.704064.3.579.2. 175 1990 Unknown [id number] 2.16.840.1.193747.3.579.2. 175 1990 Unknown [id number] 2.16.840.1.244680.3.579.2. 175 1959 Unknown [id number] Social History Date Type Detail Facility Start: 04-28-2019 End: 11-03-2019 Tobacco smoking status NHIS Current every day smoker [place] End: 02-15-2020 History of tobacco use Cigarette Smoker [place] Start: 04-28-2019 End: 10-05-2023 Cigarettes smoked current (pack per day) - Reported [facility] Start: 04-28-2019 Alcohol intake Current drinke r of alcohol (finding) [place] Start: 1990 Sex Assigned At Not on file [place] Start: 06-13-2019 End: 10-05-2023 Alcohol intake Ex-drinker (finding) [facility] Exposure to SARS-CoV -2 (event) Unable to assess [place], [place] Start: 05-18-2019 End: 04-16-2021 History SDOH Alcohol Frequency 3 [facility] Start: 05-18-2019 End: 07-16-2020 History SDOH Alcohol Std Drinks 5 [facility] Start: 05-04-2021 End: 05-19-2022 Exposure to SARS-CoV-2 (event) Not sure [facility] Start: 11-20-2019 End: 07-26-2023 Tobacco use and exposure Never used [facility] [place] [place] Start: 06-09-2020 End: 07-26-2023 Tobacco smoking status NHIS Former smoker [facility] End: 02-15-2020 History of tobacco use Current smoker [facility] Start: 12-09-2019 [facility] Start: 04-16-2021 History SDOH Social Connections Get Together 4 [facility] Start: 04-16-2021 History SDOH Food Worry 1 [facility] Start: 09-04-2022 End: 10-05-2023 Sex Assigned At Female [facility] Start: 09-04-2022 History SDOH Alcohol Frequency 2 [employer] How often to you hav e a drink containing alcohol? Monthly or less [facility] Average Number of Drinks Not on file [facility] How often to you hav e a drink containing alcohol? Never [facility] Medical Equipment Procedure Code Equipment Code Equipment Origin al Text Equipment Identifier Dates Use to check BG QID Dx O24.14 . [id number] Start: 06-09-2020 Use as instructe d to check BG QID Dx O24.14 . [id number] Start: 06-09-2020 End: 06-11-2020 use to test BLOO D SUGAR FOUR TIMES DAILY [id number] Start: 06-09-2020 Goals Date Patient Goal Desired Activity /State Functional Status Date Assessment Result Facility 05-13-2023 Functional Status N/A [facility] 05-11-2023 Functional Status N/A [facility] 06-29-2022 Functional Status N/A [facility] Clinical Notes 06-09-2020 to 05-13-2023 Note [...] Follow these instructions at home: Medicines Take guso-dzz-yuqffwp and prescription medicines only as told by [...] provider. Document Revised: 04/30/2021 Document Reviewed: 04/30/2021 [employer] Patient Education 2022 [employer] [facility]. Follow Up Care 05/13/2023 11:20:07 With:Kids Note Address: [place] [address] Business (1) When:05/16/2023 12:45:32 Comments:Dentistry follow-up [facility] 05-12-2023 Hospital Discharg e instructions Patient Education 05/11/2023 23:33:09 Dental Pain, Ludl-tz-Obnw Dental Pain Dental pain is often a [...] Follow these instructions at home: Medicines Take bsdm-vro-mihxicz and prescription medicines only as told by [...] damage to the area. Brushing your teeth [place] your teeth twice a day using a [...] only when you eat or drink. Take amli-iyp-tttznwt and prescription medicines only as told by your dentist. Watch your dental pain for any changes. Let your dentist know if symptoms get worse. This information is not intended to replace advice given to you by your health care provider. Make sure you discuss any questions you have with your health care provider. Document Revised: 11/26/2020 Document Reviewed: 11/26/2020 [employer] Patient Education 2022 [employer] Follow Up Care 05/11/2023 21:26:40 With:Linda Sheppard DO Address: Roel Julien, [facility], [facility] [address] [place] [address]- When:05/14/2023 [facility] 05-11-2023 Evaluation + Plan note Extrac roxann from: Title:ED Note Author:Violet Walters PA-C ate:05/11/23 1. Pain, dental (K08.89: Oth er specified disorders of teeth and supporting structures) Ordered: amoxicillin-clavulanate, = 1 tab(s), Oral, q12hr, X 7 day(s), # 14 tab(s), Refills(s) 0, Pharmacy: [facility] #[facility], 160, cm, 05/11/23 21:53:00 EST, Height/Length Dosing, 110, kg, 05/11/23 21:53:00 EST, Weight Dosing chlorhexidine topical, 0.018 gm, 15 mL, Oral, BID, 480 mL, Refill(s) 0, (swish and spit; do not swallow), [facility], 160, cm, 05/11/23 21:53:00 EST, Height/Length Dosing, 110, kg, 05/11/23 21:53:00 EST, Weight Dosing 2. Infected dental caries (K02.9: Dental caries, unspecified) Ordered: amoxicillin-clavulanate, = 1 tab(s), Oral, q12hr, X 7 day(s), # 14 tab(s), Refills(s) 0, Pharmacy: [facility], 160, cm, 05/11/23 21:53:00 EST, Height/Length Dosing, 110, kg, 05/11/23 21:53:00 EST, Weight Dosing chlorhexidine topical, 0.018 gm, 15 mL, Oral, BID, 480 mL, Refill(s) 0, (swish and spit; do not swallow), [facility], 160, cm, 05/11/23 21:53:00 EST, Height/Length Dosing, 110, kg, 05/11/23 21:53:00 EST, Weight Dosing 3. First trimester (Z34.91: Encounter for supervision of normal , unspecified, first trimester) Periapical abscess without sinus (K04.7: Periapical abscess without sinus) Orders: ketorolac, 30 mg = 1 mL, Injection, IntraMuscular, Once, Stop date 05/11/23 23:31:00 EST, STAT, Start date 05/11/23 23:31:00 EST, 05/11/23 23:31:00 EST [facility]03-05-2024 Hospital Discharge instructions* Discharge Instructions* Chet Berumen DO - 05/10/2023 11:50 AM EST Use amoxicillin as prescribed. Use Tylenol as needed for pain. Follow-up with dentist as soon as possible. * Attachments The following attachments cannot be sent through Care Everywhere. * Tooth Decay (Honduran) * Tooth and Gum Pain (Honduran) documented in this encounterBON [facility] History of Present illness Narrative* Angelito [...] Supplements: Reviewed Current Outpatient Medications Ordered in [facility] Medication Sig Dispense Refill baclofen (LIORESAL) [...] mg by mouth daily . No current Epic-ordered facility-administered medications on file. Lab Results Component [...] - 6-7 PM- crock pot meals- goulash; Mexican chicken; spicy rice with chicken and beans; [...] calorie goals/day. Estimated Nutritional Needs: Calorie Needs: 3191-1415 kcals/day (MSJ x 1.3AF -500-1000 to promote gradual weight loss) Patient/Family Education: Learner: family and patient Readiness: action - ready to set action plan and implement goals Barriers to Learning: none Method: explanation and handout Response: verbalizes understanding Expected Adherence: good Education Materials Provided: Healthy Meal Planning handout ([facility]), Goal Sheet, 1,476-Spzpyxx8-Imy Menus (NCM), 1,800-Calorie 5-Day Menus (NCM), Weight Loss Tips ([place]) Monitoring/Evaluation: Lab results, weight, food recall, meal planning, goal achievement, physical activity, medication management. This documentation has been sent to the referring healthcare provider. Angelito Harvey RDN, Personal Office documented in this [id number] History of Present illness Narrative* Farhat Vang [...] C hepatitis virus. Patient was referred to buncher hand and the recommendation was made for a [...] improve, for Follow Up. documented in this [id number] History of Present illness Narrative* Farhat Vang MD - 04/16/2021 10:27 AM EST OUTPATIENT WELL WOMAN PROGRESS NOTE Subjective: Tia M Levin is a very nice 31 y.o. [...] current medications that are prescribed by her economic development specialist. She has 4 children at home [...] SECTION N/A 08/28/2020 Procedure: SECTION; Surgeon: Roslyn Stevensno MD; Location: OB OR; Service: OBGYN SECTION, [...] with and per psychiatrist Radha Barkley and Luna will be prescribed and managed by psychiatrist [...] Not difficult at all documented in this [id number] History of Present illness Narrative* Holland Ann MD - 01/15/2021 11:22 AM EST Tia Khushi Levin 30 y.o. 1990 female Reason for [...] Procedure: SECTION; Surgeon: Roslyn Stevenson MD; Location: [facility]; Service: OBGYN SECTION, LOW TRANSVERSE 3 Social [...] Friends and Family: Not on file Attends Hinduism Services: Not on file Active Member of [...] Report 12/29/2020 Final Value:Gynecologic Cytology Report Case: [id number] Authorizing Provider: Germania Valentino, Collected: 12/29/2020 11:09 AM NURSING SERVICES MANAGER Ordering Location: [facility] AGRICULTURAL LENDER - An Received: 12/30/2020 12:03 PM [facility] First Screen: Violet Craig Rescreen: Talya Abel [...] from every slide are reviewed by a laborer high density press. Specimen processing and Primary Screening performed at: [facility] - [address] [place] [id number] HPV Results 12/29/2020 Final Value:This result contains [...] physician. Holland Ann MD documented in this [id number] History of Present illness Narrative* Jeimy Tan LPN - 01/15/2021 11:17 AM EST This nurse acted as a plate glass grinder for a rectal exam by Dr. Ann for Tia. Tia verbalized consent to be examined, appeared comfortable and tolerated the exam well. documented in this [id number] History of Present illness Narrative* Neris Ulloa, [...] oatmeal packet. Snack celery + PB or Luxembourger yogurt or green peppers. Lunch - will be light if full from snack and may have an early dinner. Dinner - pork chops, steamed vegetables. Snack - Luxembourger yogurt or vegetables or watermelon. Beverages - [...] prescription for Current Outpatient Medications Ordered in [facility] Medication Sig Dispense Refill blood sugar [...] BLOOD SUGAR FOUR TIMES DAILY No current [facility]-ordered facility-administered medications on file. SMBG Results: [...] the referring healthcare provider. documented in this [id number] Instructions* Patient Instructions* Zelda Bautista CNP - [...] to renew/prescribe testing supplies. documented in this [id number] History of Present illness Narrative* Zelda Bautista [...] visit with us. The patient did bring [employer] sugar meter with her for download today however there is not many readings on it. She states she started a new job at [employer] and does noise get breaks to check [...] hour: 193 3 hour: 176 Assessment: Tia Khushi Levin 30 y.o. female presents to our [...] 4. Patient to cont. To follow with nnps 5. Patient will require 2 hour 75 gram OGTT 8-12 weeks after delivery. 6. Follow-up in 2 weeks. Risks and potential complications of diabetes were reviewed with the patient. Electronically signed by Zelda MARIN 07/09/2110:03 AM documented in this [id number] History of Present illness Narrative* Lelo Gallegos [...] month during . While awaiting appointment with nnps, patient provided with details of GDM diet, [...] 1 hour post prandial. 4. Referral to nnps 5. Patient will require 2 hour 75 gram OGTT 8-12 weeks after delivery. 6. Follow-up in 2 weeks. Risks and potential complications of diabetes were reviewed with the patient. documented in this encounterIllinoisHealthEvaluation + Plan note No data available for this section [facility] Diagnosis Diet controlled gestational diabetes mellitus (GDM) in second trimester [facility] Diagnosis Acute frontal sinusitis, recurrence not specified- Primary documented in this encounter [employer] Phone: evalrhgnsm note* Diagnosis Diet controlled gestational diabetes mellitus (GDM) in third trimester- Primary [facility]* Diagnosis Diet controlled gestational diabetes mellitus (GDM) in third trimester [facility]* Diagnosis Viral URI- Primary Acute upper respiratory infections of unspecified site documented in this encounter [employer] Phone: evalzefutg note* Diagnosis Strain of rhomboid muscle, initial encounter Chest wall muscle strain, initial encounter documented in this encounter [employer] Phone: evaluation note* Diagnosis Viral syndrome- Primary Unspecified viral infection, in conditions classified elsewhere and of unspecified site documented in this encounter [employer] Phone: Evaluation note* Diagnosis Hemorrhoids, unspecified hemorrhoid type documented in this encounter [facility] note* Diagnosis COVID-19- Primary Omphalitis in adult Unspecified local infection of skin and subcutaneous tissue documented in this encounter [employer] Phone: evaluation note* Diagnosis Encounter for general adult medical examination with abnormal findings- Primary Anxiety and depression History of opioid abuse (HCC) Morbid obesity with body mass index (BMI) of 40.0 or higher (HCC) documented in this encounter [facility] note* Diagnosis Anxiety and depression- Primary At risk for obstructive sleep apnea Chronic bilateral low back pain without sciatica Hepatitis C antibody positive in blood Body mass index 40.0-44.9, adult (HCC) Body Mass Index 40.0-44.9, adult History of opioid abuse (HCC) documented in this encounter [facility] note* Diagnosis Morbid obesity with body mass index (BMI) of 40.0 or higher (HCC) documented in this encounter [facility] note* Diagnosis Acute pharyngitis, unspecified etiology- Primary documented in this encounter [employer] Phone: evaluation note* Diagnosis Acute bronchitis, unspecified organism- Primary documented in this encounter [employer] Phone: evaluation note* Diagnosis Masseter muscle spasm- Primary Spasm of muscle Other acute postprocedural pain documented in this encounter [employer] Phone: evaluation note* Diagnosis Dry socket- Primary Alveolitis of jaw documented in this encounter [employer] Phone: evaluation note* Diagnosis Sprain of right ankle, unspecified ligament, initial encounter- Primary documented in this encounter [facility] note* Diagnosis Toothache- Primary Unspecified disorder of the teeth and supporting structures Dental decay Unspecified dental caries documented in this encounter [facility] note* Diagnosis 26 weeks gestation of - Primary state, incidental documented in this encounter [facility]* Instructions* Anuj Quinn MD - 06/24/2020 Although many mbqc-lps-zkjlbwo cough cold flu sinus medications are safe in , I would contact her AGRICULTURAL LENDER office in [facility] to verify what your AGRICULTURAL LENDER group feels a safe in . Tylenol [...] be sent through Care Everywhere. * Sinusitis (Honduran) documented in this [employer] Phone: Hospital Discharge instructions* Attachments The following attachments cannot be sent through Care Everywhere. * URI (Upper Respiratory Infection) (Honduran) documented in this [employer] Phone: [facility] Discharge instructions* Attachments The following attachments cannot be sent through Care Everywhere. * Muscle Strain (Honduran) documented in this [employer] Phone: Hospital Discharge instructions* Attachments The following attachments cannot be sent through Care Everywhere. * Viral Infections (Honduran) documented in this [employer] Phone: hospital Discharge instructions* Attachments The following attachments cannot be sent through Care Everywhere. * Coronavirus Disease (COVID-19): General Info (Honduran) * Coronavirus Disease (COVID-19): Isolation (Honduran) * Piercing: Infection (Honduran) documented in this [employer] Phone: Hospital Discharge instructions* Instructions* Clark Moser MD - 07/22/2021 Use Tylenol or Motrin for pain. Take amoxicillin twice a day. Amoxicillin treats strep throat, ear infections, bronchitis and pneumonia. Call primary care doctor for close follow-up. * Attachments The following attachments cannot be sent through Care Everywhere. * Sore Throat (Honduran) documented in this [employer] Phone: spital Discharge instructions* Attachments The following attachments cannot be sent through Care Everywhere. * Bronchitis (Honduran) documented in [facility]* Attachments The following attachments cannot be sent through Care Everywhere. * Cramp: Muscle (Honduran) * Pain Post-Surgery: Acute (Honduran) documented in this encounterMARLB[facility]OUGH [facility]ITAL[facility] Phone: spital Discharge instructions* Attachments The following attachments cannot be sent through Care Everywhere. * [place] Tooth Extraction: Post-op (Honduran) documented in this [facility] Phone: spital Discharge instructions No data available for this section [facility] Discharge instructions* Attachments The following attachments cannot be sent through Care Everywhere. * Ankle Sprain (Honduran) documented in this encounterB[facility] Discharge instructions* Attachments The following attachments cannot be sent through Care Everywhere. * : Weeks 26 to 30 (Honduran) * : When to Call (After 20 Weeks): General Info (Honduran) * : Twins: General Info (Honduran) [facility] No data available for this section [facility] for referral (narrative)* Consultation (Routine) Status Reason Specialty Diagnoses / Procedures Referred By Contact Referred To Contact Authorized Nutrition Diagnoses Diet controlled gestational diabetes mellitus (GDM) in second trimester Lelo Gallegos MD [address] [place] [address] Nutrition Services [address] [place] [address] [facility] for visit Narrative* Consultation (Routine) - Pending Review Specialty Diagnoses / Procedures Referred By Joey grimes Referred To Contact Gastroenterology Diagnoses Hemorrhoids, unspecified hemorrhoid type Germania Galaviz, NURSING SERVICES MANAGER [address] [place] [address] Holland Ann MD [facility] [place] [address] Referral ID Status Reason Start Date Expiration Date V isits Requested Visits Authorized [id number] Pending Review 12/29/2020 01/14/2022 1 1 [facility] Assessments Diagnosis Accidental overdose of heroin, [...] FoundDocuments on File Type Date Recorded Patient Supply Technician Expl anation Advance Directives and Living Will Power of Toddler Lead Teacher Documents on File Type Date Recorded Patient Supply Technician Expl anation Advance Directives and Living Will 06/14/2019 7:25 AM does not have 2 0 Latest Code Status on File Code Status Date Activated Date Inactivated Comments Full Code 06/15/2019 9:29 AM 06/17/2019 4:38 PM Full Code - Unverified 06/14/2019 8:35 AM 06/15/2019 9:29 AM Documents on File Type Date Recorded Patient Supply Technician Expl anation Advance Directives and Living Will 06/14/2019 7:25 AM does not have 05/17/2 0 Latest Code Status on File Code Status Date Activated Date Inactivated Comments Full Code 06/15/2019 9:29 AM 06/17/2019 4:38 PM Full Code - Unverified 06/14/2019 8:35 AM 06/15/2019 9:29 AM Documents on File Type Date Recorded Patient Supply Technician Expl anation Advance Directives and Living Will 06/20/2019 1:10 PM does not have 3/13/2 0 Documents on File Type Date Recorded Patient Supply Technician Expl anation ACP-Advance Directive ACP-Power of Toddler Lead Teacher Documents on File Type Date Recorded Patient Supply Technician Expl anation Advance Directives and Living Will 06/20/2019 1:10 PM does not have 3/13/2 0 Documents on File Type Date Recorded Patient Supply Technician Expl anation Advance Directives and Living Will 08/28/2020 5:58 AM does not have 3/13/2 0 Latest Code Status on File Code Status Date Activated Date Inactivated Comments Full Code 08/28/2020 11:15 AM 08/30/2020 11:53 AM Full Code 08/28/2020 5:31 AM 08/28/2020 11:07 AM Full Code 06/15/2019 9:29 AM 06/17/2019 4:38 PM Documents on File Type Date Recorded Patient Supply Technician Expl anation Advance Directives and Living Will 08/28/2020 5:58 AM does not have 3/13/2 0 Latest Code Status on File Code Status Date Activated Date Inactivated Comments Full Code 08/28/2020 11:15 AM 08/30/2020 11:53 AM Full Code 08/28/2020 5:31 AM 08/28/2020 11:07 AM Full Code 06/15/2019 9:29 AM 06/17/2019 4:38 PM Documents on File Type Date Recorded Patient Supply Technician Expl anation Advance Directives and Livin g Will 05/15/2021 12:00 AM Latest Code Status on File Code Status Date Activated Date Inactivated Comments Full Code 10/05/2023 9:02 PM Hospital Course * Savita Stiles PA-C - 06/17/2019 10:12 AM EDT [facility] DISCHARGE SUMMARY Tia Levin Account: [id number] Admitted: 06/14/2019 Discharge Date/Time: 06/17/19 / 10:12 [...] amphetamine and heroine use who presented to [facility] 06/14/19 with complaints of abdominal pain and nausea. [facility] AST 1116 ALT 665 Alk phos 255 T bili 6.5 Lipase 8. CTAP revealed pericholecystic fluid vs GB wall thickening, no gallstones or hepatic pathology noted. Patient transferred to [facility] 06/14/2019 for further treatment and evaluation. GI [...] She understood this. [place] is new to [place]/17/19. I have reviewed chart for all vitals, diagnostic data, and heritage consultant notes. I discussed patient's case with Dr. Gregorio, Dr. Hay (GI) and RN. Discharge Medications Medication List ASK your doctor about these medications naltrexone microspheres Commonly known as: VivitroL Inject 380 (three hundred eighty) mg into the shoulder, thigh, or buttocks every 30 (thirty) days . Physician(s) Family: Physician No, Phone: None, Address: [facility] Follow Up: Javier Hay MD [address] [place] [address] Ag Kendall [address] [place] [id number] Follow up Repeat weekly CBC, CMP and PT/INR for the next 3-4 weeks then follow up out patient with Dr. Hay. Laboratory Follow Up by [facility]: Weekly labs for CBC, CMP, PT/INR Additional Information: Patient seen and examined day of discharge. For more information regarding patient's care, including complete radiology reports, please contact Deputy Medical Records at Patient instructions, including activity, [...] amphetamine and heroine use who presented to [facility] 06/14/19 with complaints of abdominal pain and nausea. [facility] AST 1116 ALT 665 Alk phos 255 T bili 6.5 Lipase 8. CTAP revealed pericholecystic fluid vs GB wall thickening, no gallstones or hepatic pathology noted. Patient transferred to [facility] 06/14/2019 for further treatment and evaluation. LFTs [...] 1:16 PM EDT RESOURCES FOR PRIMARY CARE [facility] Primary Care Closed Opens tomorrow [address], [place] [address] [facility] [place] [address] DIRECTIONS WEBSITE [facility] Walk-In Care Closed Opens tomorrow [address] AM [address] [place] [address] documented in this encounter* Instructions* Adia Dillon, NURSING SERVICES MANAGER - 08/13/2019 Please stay well-hydrated. I strongly encourage you to follow-up with Dr. Yadav regarding heroin abuse. Dr. Echeverria is well-known in the community for treating opiate addiction. Should you have any troubles with shortness of breath please return the ER immediately. * Attachments The following attachments cannot be sent through Care Everywhere. * Opioid Use Disorder: Medication-Assisted Treatment: General Info (Honduran) documented in this encounter* Attachments The following attachments cannot be sent through Care Everywhere. * Bacterial Vaginosis (Honduran) * Trichomoniasis (Honduran) documented in this encounter* Attachments The following attachments cannot be sent through Care Everywhere. * Dental Surgery: Generic: Post-op (Honduran) documented in this encounter* Attachments The following attachments cannot be sent through Care Everywhere. * Bronchitis (Honduran) * Pneumonia (Honduran) documented in this encounter* Attachments The following attachments cannot be sent through Care Everywhere. * Poison Arabella - Clements - and Sumac (Honduran) documented in this encounter History of Present Illness * Javier Hay MD - 06/17/2019 9:59 AM EDT GASTROENTEROLOGY DAILY PROGRESS NOTE 1 Patient Name: Tia Levin MR #: [id number] Assessment/Plan: Elevated LFTs Assessment & Plan 29yo F with PMHx IVDU and hepatitis C who presents from [facility] with elevated LFTs and imaging c/f [...] Auguste MD - 06/17/2019 7:41 AM EDT [facility] Inpatient Progress Note 06/17/2019 Tia Levin 1990 [id number] Assessment/Plan: Tia Levin is a 29 y.o. female with a history of amphetamine and heroine use who presented to [facility] 06/14/19 with complaints of abdominal pain and nausea. OL AST 1116 ALT 665 Alk phos 255 T bili 6.5 Lipase 8. CTAP revealed pericholecystic fluid vs GB wall thickening, no gallstones or hepatic pathology noted. Patient transferred to [facility] 06/14/2019 for further treatment and evaluation. 1. Acute Liver Injury: [facility] AST 1116 ALT 665 Alk phos [...] labs, diagnostics, vitals including pulse ox, and heritage consultant/other provider recommendations. No acute issues overnight [...] 2 Patient Name: Tia Levin MR #: [id number] Assessment/Plan: Elevated LFTs Assessment & Plan 29yo F with PMHx IVDU and hepatitis C who presents from [facility] with elevated LFTs and imaging c/f [...] Auguste MD - 06/16/2019 9:38 AM EDT [facility] Inpatient Progress Note 06/16/2019 Tia Levin 1990 [id number] Assessment/Plan: Tia Levin is a 29 y.o. female with a history of amphetamine and heroine use who presented to [facility] 06/14/19 with complaints of abdominal pain and nausea. [facility] AST 1116 ALT 665 Alk phos 255 T bili 6.5 Lipase 8. CTAP revealed pericholecystic fluid vs GB wall thickening, no gallstones or hepatic pathology noted. Patient transferred to [facility] 06/14/2019 for further treatment and evaluation. 1. Acute Liver Injury: [facility] AST 1116 ALT 665 Alk phos [...] recent labs, diagnostics, vitals including pulseox, and heritage consultant/other provider recommendations. No acute issues overnight [...] 2 Patient Name: Tia Levin MR #: [id number] Assessment/Plan: Elevated LFTs Assessment & Plan 29yo F with PMHx IVDU and hepatitis C who presents from [facility] with elevated LFTs and imaging c/f [...] Radiology, Medications and Transcriptions Aisha Hare CNP [facility] (for staff use only) * Indra Pruitt MD - 06/15/2019 10:43 AM EDT [facility] Inpatient Progress Note 06/15/2019 Tia Levin 1990 [id number] Assessment/Plan: Tia Levin is a 29 y.o. female with a history of amphetamine and heroine use who presented to [facility] 06/14/19 with complaints of abdominal pain and nausea. [facility] AST 1116 ALT 665 Alk phos 255 T bili 6.5 Lipase 8. CTAP revealed pericholecystic fluid vs GB wall thickening, no gallstones or hepatic pathology noted. Patient transferred to [facility] 06/14/2019 for further treatment and evaluation. 1. [...] Units 06/14/19 1037 INR 1.3* * Leila Smith, RN - 06/14/2019 1:22 PM EDT DISCHARGE [...] not have a PCP and refused a counter caser consult for assistance. Verified insurance and Rx. [...] 10:48 AM EDT Patient on [facility] for follow-up. After provider review, I called and spoke with patient and changed her appointment to a phone visit, same date/time. In addition, as per provider request, I spoke with patient about going to any [facility] to have her lab taken so it will be available for review on 06/20/19 when she is called for her TCC appointment. Patient agreed with this plan. documented in this encounter* Anastasiia Garza CNP - 06/20/2019 1:16 PM EDT Attempted to call the patient for her tele-health visit today though she did not answer. Called [employer] number 5 times and home phone once, [...] daily (lemon water) Occasional iced coffee at [employer]. Was drinking a lot of Mountain Dew and Energy drinks prior to but stopped. Meals Away From Home - most days, fast food Past Medical History: Past Medical History: Diagnosis Date Anxiety Depression Infectious viral hepatitis hep c PTSD (Post-Traumatic Stress Disorder) History From: History obtained from patient and chart review. Current/Pertinent Medications: prescription for Current Outpatient Medications Ordered in [facility] Medication Sig Dispense Refill amoxicillin (AMOXIL) [...] daily . 90 tablet 3 No current [facility]-ordered facility-administered medications on file. SMBG Results: [...] index (BMI) of 40.0 or higher ([facility]) Farhat Vang MD [address] [facility] [address] [place] [address] Referral ID Status Reason Start Date Expiration Date Visits Requested Visits Authorized [id number] Authorized Specialty Services Required/Pat ient's Best Interest 04/16/2021 04/16/2022 1 1 Specialty Diagnoses / Procedures Referred By Contac t Referred To Contact Neurosurgery Diagnoses Chronic bilateral low back pain without sciatica Farhat Vang MD [address] [phone] Carina Kline MD [address] [place] [address] Referral ID Status Reason Start Date Expiration Date Visits Requested Visits Authorized [id number] Authorized Specialty Services Required/Pat ient's Best Interest 05/14/2021 05/14/2022 1 1 Specialty Diagnoses / Procedures Referred By Joey t Referred To Contact Rehabilitation Diagnoses Chronic bilateral low back pain without sciatica Farhat Vang MD [address] [phone] Referral ID Status Reason Start Date Expiration Date Visits Requested Visits Authorized [id number] Authorized Specialty Services Required/Pat ient's Best Interest 05/14/2021 05/14/2022 1 1 Specialty Diagnoses / Procedures Referred By Joey t Referred To Contact Diagnoses At risk for obstructive sleep apnea Farhat Vang MD [address] [phone] Gabriel Jacinto MD [address] [facility] [place] [address] Referral ID Status Reason Start Date Expiration Date Visits Requested Visits Authorized [id number] Authorized Specialty Services Required/Pat ient's Best Interest 05/14/2021 05/14/2022 1 1 Additional Source Comments Reason for Visit (unrecogniz ed section and content) Reason Comments Drug Overdose Pt was brought in by [facility] for heroin OD. Prior to arrival [facility] [...] in second trimester Lelo Gallegos MD [address] [place] [address] Nutrition Services [address] [place] [address] Reason Comments Gestational Diabetes Status Reason Specialty Diagnoses / Procedures Referred By Contact Referred To Contact Closed Endocrinology Diagnoses Diet controlled gestational diabetes mellitus (GDM) in second trimester Roslyn Stevenson MD [address] [address] Lelo Gallegos MD [address] [place] [address] Reason Comments Pharyngitis sore throat and head [...] index (BMI) of 40.0 or higher ([facility]LY [facility]) Farhat Vang MD [address] [facility] [address] [place] [address] Nutrition Services [address] [place] [address] Referral ID Status Reason Start Date Expiration Date Visits Requested Visits Authorized [id number] Authorized Specialty Services Required/Pat ient's Best Interest [...] and Physical Note 06/14/19 Tia Levin 1990 [id number] Assessment/Plan: Tia Levin is a 29 y.o. female with a history of amphetamine and heroine use who presented to [facility] 06/14/19 with complaints of abdominal pain and nausea. [facility] AST 1116 ALT 665 Alk phos 255 T bili 6.5 Lipase 8. CTAP revealed pericholecystic fluid vs GB wall thickening, no gallstones or hepatic pathology noted. Patient transferred to [facility] 06/14/2019 for further treatment and evaluation. 1. Elevated LFTs: [facility] AST 1116 ALT 665 Alk phos [...] Complaint: Elevated LFTs History of Present Illness: Tai Levin is a 29 y.o. female with a history of amphetamine and heroine use who presented to [facility] 06/14/19 with complaints of abdominal pain and nausea. [facility] AST 1116 ALT 665 Alk phos 255 T bili 6.5 Lipase 8. CTAP revealed pericholecystic fluid vs GB wall thickening, no gallstones or hepatic pathology noted. Patient transferred to [facility] 06/14/2019 for further treatment and evaluation. Patient [...] labs, diagnostics, vitals including pulse ox, and heritage consultant/other provider recommendations. Discussed with collaborating physician [...] file Gets together: Not on file Attends pentecostalism service: Not on file Active member of [...] reviewed, including documentation from previous hospitalizations and heritage consultant recommendations as summarized below. Briefly, patient [...] Jackson Jain MD - 06/16/2019 10:43 AM ALLENTGriAisha menezes CNP - 06/14/2019 10:05 AM EDT Consult Notes (unrecognized section and content) Associated Order(s): IP CONSULT TO GENERAL SURGERY Clinic Surgery Consult Note Patient Name: Tia Levin Admit Date: MR #: [id number] : 1990 Senior addendum 29 y/o F [...] Hepatitis C, and hx of presents to [facility] with jaundice and abdominal pain. 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 I discussed the case with the resident/BLADE ALIGNER and agree with the findings and plan as documented in his/her note and/or any note I supplied. Associated Order(s): IP CONSULT TO GASTROENTEROLOGY GASTROENTEROLOGY CONSULT NOTE 4 Patient Name: Tia Levin Admit Date: MR #: [id number] : 1990 Physicians: Physician No (Family); Brie Moreno MD (Referring) Consult Ordered By: Franny Sims PA-C Assessment and Plan: Other Elevated LFTs Assessment & Plan 29yo F with PMHx IVDU and hepatitis C who presents from [facility] with elevated LFTs and imaging c/f [...] IVDU and hepatitis C who presents from [facility] with elevated LFTs and imaging c/f [...] she has been in and out of skilled nursing over past 3mo. She denies EtOH. Denies NSAID and significant Tylenol use. Denies new medications, herbal supplements, or recent ATBx. She denies any known FH of liver disease or GI related malignancies. Current LFTs include: AP 255, AST/ALT 665/1116, TB 6.5 (of note were normal in 02/2019). CTa/p w IVC at [facility] demonstrated moderate GBW thickening w pericholecystic [...] file Gets together: Not on file Attends pentecostalism service: Not on file Active member of [...] 10:18 AM Invalid input(s): CO2, LABALBU Aisha Hare, MARK [facility] (for staff use only) Associated [...] reviewed, including documentation from previous hospitalizations and heritage consultant recommendations as summarized below. Briefly, patient [...] IVDU and hepatitis C who presents from [facility] with elevated LFTs and imaging c/f [...] y.o. : 1990 VISIT DATE: 08/13/2019 CSN: [id number] PCP: Physician No Chief Complaint Patient presents with Drug Overdose This is a 29-year-old female brought to the ER via EMS for evaluation. Time my exam patient is alert and oriented. She states she was in the [employer] parking lot bent over in her car [...] file Gets together: Not on file Attends pentecostalism service: Not on file Active member of [...] 5' 3 79.4 kg (175 lb) 08/13/19 1940 (!) 156/60 (!) 138 16 98 % Physical Exam Vitals signs and nursing note reviewed. Exam conducted with a plate glass grinder present (Nurses at the bedside). Constitutional: General: [...] for helping people with drug addiction. [address] [facility] [address] Contact information for after-discharge care Follow-up information has not been specified. Adia Dillon CNP 08/13/191948 Pt brought in by [facility], states she was found by [facility]PD unresponsive [...] section and content) DATE CREATED AUTHOR 08/21/2019 [facility] DATE CREATED AUTHOR AUTHOR'S ORGANIZ ATION 02/15/2021 [facility] DATE CREATED AUTHOR AUTHOR'S ORGANIZ ATION 05/18/2021 [facility] DATE CREATED AUTHOR AUTHOR'S ORGANIZ ATION 07/02/2021 [facility] DATE CREATED AUTHOR AUTHOR'S ORGANIZ ATION 07/09/2021 [facility] DATE CREATED AUTHOR AUTHOR'S ORGANIZ ATION 07/05/2022 [facility] DATE CREATED AUTHOR AUTHOR'S ORGANIZ ATION 05/14/2023 [facility] DATE CREATED AUTHOR AUTHOR'S ORGANIZ ATION 10/07/2023 [facility] DATE CREATED AUTHOR AUTHOR'S ORGANIZ ATION 10/28/2023 [facility] EPIC DATE CREATED AUTHOR AUTHOR'S ORGANIZ ATION 10/29/2023 [facility] Ordered Prescriptions (unrec ognized section and content) [...] Tue10/05/23 at 2101, Until Discontinued, Nausea, Vomiting
Administer if oral route cannot be used.
Care Teams (unrecognized sec tion and content) Luggage Attendant Relationship Specialty Start Date End Date No, Physician [facility] PCP - General 12/29/20 Germania Galaviz, NURSING SERVICES MANAGER [address] [place] [id number] Nurse Practitioner Obstetrics/Gynecology 11/01/19 Luggage Attendant Relationship Specialty Start Date End Date No, Physician [facility] PCP - General 12/29/20 Germania Galaviz, NURSING SERVICES MANAGER [address] [facility] [address] [place] [address] Nurse Practitioner Obstetrics/Gynecology 11/01/19 Luggage Attendant Relationship Specialty Start Date End Date Farhat Vang MD [address] [facility] [address] [place] [address] PCP - General Family Medicine 04/16/21 Germania Galaviz, NURSING SERVICES MANAGER [address] [place] [address] Nurse Practitioner Obstetrics/Gynecology 11/01/19 Radha Pantoja MD [address] [place] [address] Noxious Weeds And Pest Inspector Obstetrics/Gynecology 02/02/21 Yvonne Santos MD [address] [place] [address] Noxious Weeds And Pest Inspector Obstetrics/Gynecology 02/02/21 Regla Dias CN [address] [facility] [place] [address] Box Car Bracer Obstetrics/Gynecology 02/02/21 Luggage Attendant Relationship Specialty Start Date End Date Farhat Vang MD [address] [facility] [address] [place] [address] PCP - General Family Medicine 04/16/21 Germania Galaviz, NURSING SERVICES MANAGER [address] [facility] [address] [place] [address] Nurse Practitioner Obstetrics/Gynecology 11/01/19 Radha Pantoja MD [address] [place] [address] Noxious Weeds And Pest Inspector Obstetrics/Gynecology 02/02/21 Yvonne Santos MD [address] [place] [address] Noxious Weeds And Pest Inspector Obstetrics/Gynecology 02/02/21 Regla Dias CN [address] [place] [address] Box Car Bracer Obstetrics/Gynecology 02/02/21 Luggage Attendant Relationship Specialty Start Date End Date Farhat Vang MD [address] [address] PCP - General Family Medicine 04/16/21 Germania Galaviz, NURSING SERVICES MANAGER [address] [facility] [place] [address] Nurse Practitioner Obstetrics/Gynecology 11/01/19 Radha Pantoja MD [address] [facility] [place] [address] Noxious Weeds And Pest Inspector Obstetrics/Gynecology 02/02/21 Yvonne Santos MD [address] [facility] [place] [address] Noxious Weeds And Pest Inspector Obstetrics/Gynecology 02/02/21 Regla Dias, CN [address] [facility] [place] [address] Box Car Bracer Obstetrics/Gynecology 02/02/21 Luggage Attendant Relationship Specialty Start Date End Date Linda Sheppard DO [address] [place] [address] PCP - General Family Medicine 09/04/22 Luggage Attendant Relationship Specialty Start Date End Date Linda Sheppard DO [address] [place] [place] [address] PCP - General Family Medicine 09/04/22 Luggage Attendant Relationship Specialty Start Date End Date Linda Sheppard, [address] [place] [address] PCP - General Family Medicine 09/04/22 FOR [...] BE BASED ON THE PRIMARY CLINICAL RECORDS. [employer] [facility]. provides no warranty or guarantee of the accuracy or completeness of information in this document.
--- NOTE | 2023-11-01 12:41 | US_ITS ---
[address] [address] Patient Name: TIA MONROE MRN: [id number] date: 1990 Sex: F Assigned Patient Location: US Current Patient Location: Accession/Order Number: [id number] Exam Date: 11/01/2023 12:45 Report Date: 11/01/2023 15:25 At the request of: DARWIN MONROY Procedure: US OB BPP w non-stress EXAMINATION: US OB BPP w non-stress HISTORY:Monochorionic diamniotic twin COMPARISON: No relevant comparison available. TECHNIQUE: Ultrasound biophysical profile was performed in the radiology department. Baby A: BREATHING MOVEMENTS: 2 GROSS BODY MOVEMENTS: 2 TONE: 2 QUALITATIVE AMNIOTIC FLUID VOLUME: 2 PRESENTATION: Transverse, head to the maternal left HEART RATE: 133 AMNIOTIC FLUID VOLUME: Largest fluid pocket 6.6 x 4.3 cm GESTATIONAL AGE: 30 weeks 6 days US/US OB BPP w non-stress IMPRESSION: Total biophysical profile score: 8/8 Baby B: BREATHING MOVEMENTS: 2 GROSS BODY MOVEMENTS: 2 TONE: 2 QUALITATIVE AMNIOTIC FLUID VOLUME: 2 PRESENTATION: Transverse, head to the maternal left HEART RATE: 147 AMNIOTIC FLUID VOLUME: Largest fluid pocket 8.5 x 4.3 cm GESTATIONAL AGE: 30 weeks 6 days IMPRESSION: Total biophysical profile score: 8/8 Electronically authenticated by: DAMIR ALVAREZ Date: 11/01/2023 15:25
--- NOTE | 2023-11-01 12:41 | US_ITS ---
[address] [address] Patient Name: TIA MONROE MRN: [id number] date: 1990 Sex: F Assigned Patient Location: [facility] Current Patient Location: Accession/Order Number: [id number] Exam Date: 11/01/2023 12:45 Report Date: 11/01/2023 15:31 At the request of: DARWIN MONROY Procedure: US OB BPP w non-stress EXAMINATION: US OB BPP w non-stress HISTORY:Monochorionic diamniotic twin COMPARISON: No relevant comparison available. TECHNIQUE: Ultrasound biophysical profile was performed in the radiology department. Baby A: BREATHING MOVEMENTS: 2 GROSS BODY MOVEMENTS: 2 TONE: 2 QUALITATIVE AMNIOTIC FLUID VOLUME: 2 PRESENTATION: Transverse, head to the maternal left HEART RATE: 133 AMNIOTIC FLUID VOLUME: Largest fluid pocket 6.6 x 4.3 cm GESTATIONAL AGE: 30 weeks 6 days US/US OB BPP w non-stress IMPRESSION: Total biophysical profile score: 8/8 Baby B: BREATHING MOVEMENTS: 2 GROSS BODY MOVEMENTS: 2 TONE: 2 QUALITATIVE AMNIOTIC FLUID VOLUME: 2 PRESENTATION: Transverse, head to the maternal left HEART RATE: 147 AMNIOTIC FLUID VOLUME: Largest fluid pocket 8.5 x 4.3 cm GESTATIONAL AGE: 30 weeks 6 days IMPRESSION: Total biophysical profile score: 8/8 Electronically authenticated by: DAMIR ALVAREZ Date: 11/01/2023 15:31
[2023-11-01 13:51] VITALS: BP 119/67; PULSE 107
== END 2023-11-01 14:00 | disposition home or self-care (01) ==
LOC: US 07:31 → FBC 12:36
PROVIDERS: Visit Provider Obstetrics & Gynecology
DX: O30.039 Twin pregnancy, monochorionic/diamniotic, unspecified trimester (principal); Z3A.30 30 weeks gestation of pregnancy
CPT/HCPCS: 76818

== ENCOUNTER 2023-11-04 07:05 | Outpatient (OUT) | payer BC, SELFPAY ==
--- OUTSIDE RECORDS SUMMARY | 2023-11-04 07:09 | XMS_ITS | CCD ---
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 Name Role Phone Unavailable Primary Care Provider Unavailabl e No, Physician Primary Care Provider Unavailabl e HODA MADERA Unavailable Unavailable Primary Care Provider Unavailabl e No, Physician Primary Care Provider Unavailabl Germania Becerra Unavailable Roslyn Stevenson Unavailable Radha Pantoja Unavailable Yvonne Santos Unavailable Larissa, Regla Corina Unavailable [phone] No, Physician Primary Care Provider UnavailGermania Rodriguez CNP Unavailable Roslyn Stevenson MD Unavailable Radha Pantoja MD Unavailable Yvonne Santos MD Unavailable Larissa CNM, Regla Corina Unavailable Unavailable Primary Care Provider UnavailGermania Rodriguez CNP Unavailable Roslyn Stevenson MD Unavailable Radha Pantoja MD Unavailable Yvonne Santos MD Unavailable Larissa CNM, Regla Corina Unavailable Germania Galaviz CNP Unavailable [phone] No, Physician Primary Care Provider Unavailabl e [...] Referring Unavailable LINDA SHEPPARD Primary Care Unavailable VIOLET [...] day(s), # 14 tab(s), Refills(s) 0, Pharmacy: [facility] #[facility], 160, cm, 05/11/23 21:53:00 EST, Height/Length [...] oral solution (2 sources) alpha-Adrenergic Agonist, Uncompetitive P-fbxfgm-U-aspartate Receptor Antagonist, Sigma-1 Agonist Start: End: take 5 mL by mouth four times daily as needed for cough brompheniramine-pse udoephedrine-DM (BROMFED DM) 2-30-10 MG/5ML syrup Take 5 mLs by mouth 4 times daily as needed for Congestion or Cough 240 mL 1 10/12/2021 11/11/2021 Active Start: 11-07-2020 End: 11-12-2020 take 5 mL by mouth three times daily as needed for cough ioxqhaiwxqugxwl-tulbqpcmnyqerxl-TJ 2-30- 10 MG/5ML syrup Take 5 mLs [...] 0, (swish and spit; do not swallow), [employer] [employer] #[facility], 160, cm, 05/11/23 21:53:00 EST, [...] Active Dextromethorphan / guaiFENesin (2 sources) Uncompetitive H-zexfuv-E-asparta te Receptor Antagonist, Sigma-1 Agonist End: 06-24-2020 [...] day(s), # 15 tab(s), Refills(s) 0, Pharmacy: [facility] #16, 160, cm, 05/13/23 11:33:00 EST, Height/Length [...] for Pain. 0 05/10/2023 Discontinued (LIST CLEANUP) [id number] 200 actuat albuterol 0.09 mg/actuat metered dose [...] Translations: [Accidental overdose of heroin, initial encounter ([facility])] Episodic Substance-related disorders (1 source) Opioid [...] l admission (14 sources) Admission statuses; Translations: [shelter (current) use of opiate analgesic] Onset: 05-18-2019 05-18-2019 Episodic Allergic reactions (1 source) Contact dermatitis due to poison raabella; Translations: [Poison arabella] Episodic Contraceptive and procreative [...] Coag (Bld) [Time] 29.8 s Normal 23.9-33.8 [facility] Comment on above: Result Comment: IV Heparin Therapy Range: 62.0-94.0 Performed By: #### P T, PTT, BMP, CDP, TROPI #### [facility] [address] [place] [address] Records Supervisor: Guero Sandoval MD Basic Metabolic Profon 10-04 Anion gap [Moles/Vol] 13 mmol/L Normal - [facility] Comment on above: Performed By: #### P T, PTT, BMP, CDP, TROPI #### [facility] [address] [place] [address] Records Supervisor: Guero Sandoval MD BUN/CRE Ratio Result cannot be calculated, Creatinine below linear range. Normal - [place] Comment on above: Performed By: #### P T, PTT, BMP, CDP, TROPI #### [facility] [address] [place] [address] Records Supervisor: Guero Sandoval MD Calcium [Mass/Vol] 8.7 mg/dL Normal 8.6-10.4 [place] Comment on above: Performed By: #### P T, PTT, BMP, CDP, TROPI #### [facility] [address] [place], [place] [id number] Records Supervisor: Guero Sandoval MD Chloride [Moles/Vol] 105 mmol/L Normal 98-107 [facility] Comment on above: Performed By: #### P T, PTT, BMP, CDP, TROPI #### [facility] [address] [place] [address] Records Supervisor: Guero Sandoval MD CO2 [Moles/Vol] 18 mmol/L Low 20-31 [facility] Comment on above: Performed By: #### P T, PTT, BMP, CDP, TROPI #### [facility] [address] [place] [address] Records Supervisor: Guero Sandoval MD Creatinine [Mass/Vol] mg/dL Low 0.5-0.9 [facility] Comment on above: Performed By: #### P T, PTT, BMP, CDP, TROPI #### [facility] [address] [place] [address] Records Supervisor: Guero Sandoval MD eGFR Can not be calculated Normal >60 [place] Comment on above: Result Comment: These results [...] P T, PTT, BMP, CDP, TROPI #### [facility] [address] [place] [address] Records Supervisor: Guero Sandoval MD Glucose [Mass/Vol] 111 mg/dL High 70-99 [place] Comment on above: Performed By: #### P T, PTT, BMP, CDP, TROPI #### [facility] [address] [place], [place] [id number] Records Supervisor: Guero Sandoval MD Potassium [Moles/Vol] 3.8 mmol/L Normal 3.7-5.3 [facility] Comment on above: Performed By: #### P T, PTT, BMP, CDP, TROPI #### [facility] [address] [place], [place] [phone] Records Supervisor: Guero Sandoval MD Sodium [Moles/Vol] 136 mmol/L Normal 135-144 [place] Comment on above: Performed By: #### P T, PTT, BMP, CDP, TROPI #### [facility] [address] [place] [address] Records Supervisor: Guero Sandoval MD Urea nitrogen [Mass/Vol] 6 mg/dL Normal 6-20 [place] Comment on above: Performed By: #### P T, PTT, BMP, CDP, TROPI #### [facility] [address] [place] [address] Records Supervisor: Guero Sandoval MD Brain Natri. Peptideon 10-04 Pro-BNP <36 Normal 0-300 [facility] Comment on above: Result Comment: An a ge-independent cutoff point of 300 pg/ml has a 98% negative predictive value excluding acute heart failure. Performed By: #### B EXTRACTOR OPERATOR SOLVENT PROCESS, TROPI #### [facility] [address] [place] [address] Records Supervisor: Thor Hernández MD CBC with Diffon 10-05-2023 Abs. Basophil 0.04 k/uL Normal 0.00-0.20 [facility] Comment on above: Performed By: #### P T, PTT, BMP, CDP, TROPI #### [facility] [address] [place] [address] Records Supervisor: Guero Sandoval MD Abs.Imm.Granulocyte 0.16 k/uL Normal 0.00-0.30 [place] Comment on above: Performed By: #### P T, PTT, BMP, CDP, TROPI #### [facility] [address] [place] [address] Records Supervisor: Guero Sandoval MD Abs.Neutrophil (Seg) 8.05 k/uL High 2.5-7.0 [facility] Comment on above: Performed By: #### P T, PTT, BMP, CDP, TROPI #### [facility] [address] [place] [address] Records Supervisor: Guero Sandoval MD Basophils/100 WBC (Bld) 0 % Normal 0-2 [facility] Comment on above: Performed By: #### P T, PTT, BMP, CDP, TROPI #### [facility] [address] [place] [address] Records Supervisor: Guero Sandoval MD Eosinophils (Bld) [#/Vol] 0.08 10*3/uL Normal 0.00-0.4 0 [place] Comment on above: Performed By: #### P T, PTT, BMP, CDP, TROPI #### [facility] [address] [place] [address] Records Supervisor: Guero Sandoval MD Eosinophils/100 WBC (Bld) 1 % Normal 0-5 [place] Comment on above: Performed By: #### P T, PTT, BMP, CDP, TROPI #### [facility] [address] [place] [id number] Records Supervisor: Guero Sandoval MD Erythrocyte distribution width (RBC) [Ratio] 13.1 % Normal 12.1-15.2 [facility] Comment on above: Performed By: #### P T, PTT, BMP, CDP, TROPI #### [facility] [address] [place] [id number] Records Supervisor: Geuro Sandoval MD Hematocrit (Bld) [Volume fraction] 28.8 % Low 36.0-46.0 [place] Comment on above: Performed By: #### P T, PTT, BMP, CDP, TROPI #### [facility] [address] [place] [id number] Records Supervisor: Guero Sandoval MD Hemoglobin (Bld) [Mass/Vol] 9.8 g/dL Low 12.0-16.0 [place] Comment on above: Performed By: #### P T, PTT, BMP, CDP, TROPI #### [facility] [address] [place] [address] Records Supervisor: Guero Sandoval MD Immature granulocytes/100 WBC (Bld) 2 % Normal 0-5 [place] Comment on above: Performed By: #### P T, PTT, BMP, CDP, TROPI #### [facility] [address] [place] [id number] Records Supervisor: Guero Sandoval MD Lymphocytes (Bld) [#/Vol] 1.61 10*3/uL Normal 1.00-4.8 0 [place] Comment on above: Performed By: #### P T, PTT, BMP, CDP, TROPI #### [facility] [address] [place] [address] Records Supervisor: Guero Sandoval MD Lymphocytes/100 WBC (Bld) 15 % Normal 15-40 [place] Comment on above: Performed By: #### P T, PTT, BMP, CDP, TROPI #### [facility] [address] [place] [id number] Records Supervisor: Guero Sandoval MD MCH (RBC) [Entitic mass] 27.7 pg Normal 26.0-34.0 [place] Comment on above: Performed By: #### P T, PTT, BMP, CDP, TROPI #### [facility] [address] [place] [address] Records Supervisor: Guero Sandoval MD MCHC (RBC) [Mass/Vol] 34.0 g/dL Normal 31.0-37.0 [facility] Comment on above: Performed By: #### P T, PTT, BMP, CDP, TROPI #### [facility] [address] [place] [id number] Records Supervisor: Guero Sandoval MD MCV (RBC) [Entitic vol] 81.4 fL Normal 80.0-100.0 [facility] Comment on above: Performed By: #### P T, PTT, BMP, CDP, TROPI #### [facility] [address] [place] [address] Records Supervisor: Guero Sandoval MD Monocytes (Bld) [#/Vol] 0.77 10*3/uL Normal 0.00-1.00 [place] Comment on above: Performed By: #### P T, PTT, BMP, CDP, TROPI #### [facility] [address] [place] [address] Records Supervisor: Guero Sandoavl MD Monocytes/100 WBC (Bld) 7 % Normal 4-8 M [facility] Comment on above: Performed By: #### P T, PTT, BMP, CDP, TROPI #### [facility] [address] [place] [address] Records Supervisor: Guero Sandoval MD Neutrophil (Seg) 75 % Normal 47-75 [facility] Comment on above: Performed By: #### P T, PTT, BMP, CDP, TROPI #### [facility] [address] [place] [address] Records Supervisor: Guero Sandoval MD Platelet mean volume (Bld) [Entitic vol] 10.2 fL Normal 6.0-12.0 [facility] Comment on above: Performed By: #### P T, PTT, BMP, CDP, TROPI #### [facility] [address] [place] [address] Records Supervisor: Guero Sandoval MD Platelets (Bld) [#/Vol] 275 10*3/uL Normal 140-450 [place] Comment on above: Performed By: #### P T, PTT, BMP, CDP, TROPI #### [facility] [address] [place] [address] Records Supervisor: Guero Sandoval MD RBC (Bld) [#/Vol] 3.54 10*6/uL Low 4.00-5.20 [place] Comment on above: Performed By: #### P T, PTT, BMP, CDP, TROPI #### [facility] [address] [place] [address] Records Supervisor: Guero Sandoval MD WBC (Bld) [#/Vol] 10.7 10*3/uL Normal 3.5-11.0 [place] Comment on above: Performed By: #### P T, PTT, BMP, CDP, TROPI #### [facility] [address] [place] [address] Records Supervisor: Guero Sandoval MD CT CHEST PULMONARY EMBOLISM [...] Carlos Petersen MD 10/05/23 Final result Normal [facility] Liver Profileon 10-05-2023 Albumin [Mass/Vol] 3.0 g/dL Low 3.5-5.2 [place] Comment on above: Performed By: #### L IVP #### [facility] [address] [place] [address] Records Supervisor: Guero Sandoval MD Alkaline Phos 74 U/L Normal 35-104 [facility] Comment on above: Performed By: #### L IVP #### [facility] [address] [place] [address] Records Supervisor: Guero Sandoval MD ALT [Catalytic activity/Vol] U/L Low 5-33 [place] Comment on above: Performed By: #### L IVP #### [facility] [address] [place], [place] [phone] Records Supervisor: Guero Sandoval MD AST [Catalytic activity/Vol] 9 U/L Normal <32 [place] Comment on above: Performed By: #### L IVP #### [facility] [address] [place], [place] [id number] Records Supervisor: Guero Sandoval MD Bilirubin [Mass/Vol] 0.3 mg/dL Normal 0.3-1.2 [facility] Comment on above: Performed By: #### L IVP #### [facility] [address] [place], [place] [id number] Records Supervisor: Guero Sandoval MD Bilirubin, Indirect Can not be calculated Normal 0.0-1.0 [place] Comment on above: Performed By: #### L IVP #### [facility] [address] [place], [place] [phone] Records Supervisor: Guero Sandoval MD Bilirubin.indirect [Mass/Vol] mg/dL Normal <0.3 [place] Comment on above: Performed By: #### L IVP #### [facility] [address] [place], [place] [id number] Records Supervisor: Guero Sandoval MD Protein [Mass/Vol] 5.9 g/dL Low 6.4-8.3 [place] Comment on above: Performed By: #### L IVP #### [facility] [address] [place], [place] [phone] Records Supervisor: Guero Sandoval MD PTon 10-05-2023 INR Coag (PPP) [Relative time] 1.0 {INR} Normal [place] Comment on above: Result Comment: Therapeutic Range: Moderate Anticoagulant Intensity: INR = 2.0-3.0 High Anticoagulant Intensity: INR = 2.5-3.5 Performed By: #### P T, PTT, BMP, CDP, TROPI #### [facility] [address] [place] [address] Records Supervisor: Guero Sandoval MD PT Coag (PPP) [Time] 13.6 s Normal 11.5-14.2 [facility] Comment on above: Performed By: #### P T, PTT, BMP, CDP, TROPI #### [facility] [address] [place] [address] Records Supervisor: Guero Sandoval MD Troponinon 10-05-2023 Troponin, High Sens <6 Normal 0-14 [facility] Comment on above: Result Comment: High Sensitivity Troponin values cannot be compared with other Troponin methodologies. Performed By: #### B EXTRACTOR OPERATOR SOLVENT PROCESS, TROPI #### [address] [address] Records Supervisor: Thor Hernández MD Troponin, High Sens <6 Normal 0-14 [place] Comment on above: Result Comment: High Sensitivity Troponin values cannot be compared with other Troponin methodologies. Performed By: #### P T, PTT, BMP, CDP, TROPI #### [facility] [address] [place] [address] Records Supervisor: Guero Sandoval MD UA w/Reflex Cultureon 2023 Bilirubin, SemiQt,Ur Negative Normal NEG [facility] Comment on above: Performed By: #### U RICHYO, UAX #### [facility] [address] [place] [address] Records Supervisor: Thor Hernández MD Blood, Urine Negative Normal NEG [facility] Comment on above: Performed By: #### U RICHYO, UAX #### [facility] [address] [place] [phone] Records Supervisor: Thor Hernández MD Clarity (U) Cloudy Abnormal CLEAR [facility] Comment on above: Performed By: #### U RICHYO, UAX #### [facility] [address] [place] [address] Records Supervisor: Thor Hernández MD Color (U) Yellow Normal YEL [facility] Comment on above: Performed By: #### U MICAO, UAX #### [facility] [address] [place] [address] Records Supervisor: Thor Hernández MD Glucose Ql (U) 1+ mg/dL Abnormal NEG [facility] Comment on above: Performed By: #### U MICAO, UAX #### [facility] [address] [place] [address] Records Supervisor: Thor Hernández MD Ketones Ql (U) TRACE Abnormal NEG [facility] Comment on above: Performed By: #### U MICAO, UAX #### [address] [address] Records Supervisor: Thor Hernández MD Leukocyte esterase Test strip Ql (U) Negative Normal NEG [facility] Comment on above: Performed By: #### U MICAO, UAX #### [address] [address] Records Supervisor: Thor Hernández MD Nitrite,Ur Negative Normal NEG [facility] Comment on above: Performed By: #### U MICAO, UAX #### [address] [address] Records Supervisor: Thor Hernández MD PH,Ur 6.0 Normal 5.0-8.0 [facility] Comment on above: Performed By: #### U MICAO, UAX #### [facility] [address] [place] [address] Records Supervisor: Thor Hernández MD Protein Ql (U) TRACE Abnormal NEG [facility] Comment on above: Performed By: #### U MICAO, UAX #### [facility] [address] [place] [address] Records Supervisor: Thor Hernández MD Spec. [place],Ur 1.028 Normal 1.005-1.030 [facility] Comment on above: Performed By: #### U KAYDEN, UAX #### [address] [address] Records Supervisor: Thor Hernández MD Urobilinogen,Ur Normal Normal 0.0-1.0 [facility] Comment on above: Performed By: #### U RICHYO, UAX #### [address] [address] Records Supervisor: Thor Hernández MD Urinalysis,Microon 4 Bacteria MODERATE Abnormal NONE [facility] Comment on above: Performed By: #### U KAYDEN, UAX #### [address] [address] Records Supervisor: Thor Hernández MD Casts 2 TO 5 HYALINE Normal 0-8 [facility] Comment on above: Result Comment: Refe rence range defined for non-centrifuged specimen. Performed By: #### U KAYDEN, UAX #### [address] [address] Records Supervisor: Thor Hernández MD Epithelial cells LM Ql (Urine sed) 20 TO 50 Normal 0-5 [facility] Comment on above: Performed By: #### U RICHYO, UAX #### [facility] [address] [place] [address] Records Supervisor: Thor Hernández MD Urine RBC's 0 TO 2 Normal 0-4 [facility] Comment on above: Result Comment: Refe rence range defined for non-centrifuged specimen. Performed By: #### U RICHYO, UAX #### [address] [address] Records Supervisor: Thor Hernández MD Urine WBC's 5 TO 10 Normal 0-5 [facility] Comment on above: Performed By: #### U MICAO, UAX #### [facility] [address] [place] [address] Records Supervisor: Thor Hernández MD AFP, Maternalon 07-28-2023 Determined by Ultrasound Normal [facility] Comment on above: Performed By: #### A AFPM #### [facility] [address] [place] [address] Records Supervisor: Thor Hernández MD [address] [phone] Records Supervisor: Tim Vizcarra MD #### FT4, TSH, FT3 #### [address] [address] Records Supervisor: Thor Hernández MD Due Date SEE NOTE Normal [facility] Comment on above: Result Comment: Resu lts for Estimated Due Date: 01 06 24 Performed By: #### A AFPM #### [address] [address] Records Supervisor: Thor Hernández MD [address] [address] Records Supervisor: Tim Vizcarra MD #### FT4, TSH, FT3 #### [facility] [address] [place] [address] Records Supervisor: Thor Hernández MD Family History No Normal [facility] Comment on above: Performed By: #### A AFPM #### [facility] [address] [place] [address] Records Supervisor: Thor Hernández MD [facility] [address] [place] [address] Records Supervisor: Tim Vizcarra MD #### FT4, TSH, FT3 #### [facility] [address] [place] [address] Records Supervisor: Thor Hernández MD Gestat Age (exact) 16 wks, 4 days Normal [facility] Comment on above: Performed By: #### A AFPM #### [address] [address] Records Supervisor: Thor Hernández MD [address] [phone] Records Supervisor: Tim Vizcarra MD #### FT4, TSH, FT3 #### [address] [address] Records Supervisor: Thor Hernández MD Ins Req Matern Diab No Normal [facility] Comment on above: Performed By: #### A AFPM #### [address] [address] Records Supervisor: Thor Hernández MD [address] [address] Records Supervisor: Tim Vizcarra MD #### FT4, TSH, FT3 #### [address] [address] Records Supervisor: Thor Hernández MD Interpretation Screen Neg Normal [facility] Comment on above: Result Comment: (NOT E) INTERPRETATION: SCREEN NEGATIVE for open spina bifida Neural Tube Defects (NTD) Negative Pre-Test Post-Test Cutoff Neural Tube Defects Risks 1:452 1:3230 1:103 Comments: The risk of an open neural tube defect is less than the twin screening cut-off. This test was developed and its performance characteristics determined by [facility]. It has not been cleared or approved by the [place] Food and Drug Administration. This test was performed in a CLIA certified laboratory and is intended for clinical purposes. Performed By: #### A AFPM #### [address] [address] Records Supervisor: Thor Hernández MD [address] [address] Records Supervisor: Tim Vizcarra MD #### FT4, TSH, FT3 #### [facility] [address] [place] [address] Records Supervisor: Thor Hernández MD [age] [facility] Comment on above: Performed By: #### A AFPM #### [facility] [address] [place] [address] Records Supervisor: Thor Hernández MD [facility] [address] [place], [place] [phone] Records Supervisor: Tim Vizcarra MD #### FT4, TSH, FT3 #### [address] [address] Records Supervisor: Thor Hernández MD Maternal Race Nonblack [facility] Comment on above: Performed By: #### A AFPM #### [address] [address] Records Supervisor: Thor Hernández MD [facility] [address] [place], [place] [phone] Records Supervisor: Tim Vizcarra MD #### FT4, TSH, FT3 #### [address] [address] Records Supervisor: Thor Hernández MD Maternal Weight 239.0 lbs. [facility] Comment on above: Performed By: #### A AFPM #### [facility] [address] [place] [address] Records Supervisor: Thor Hernández MD [facility] [address] [place] [address] Records Supervisor: Tim Vizcarra MD #### FT4, TSH, FT3 #### [facility] [address] [place] [address] Records Supervisor: Thor Hernández MD MoM for AFP 1.71 Normal [facility] Comment on above: Performed By: #### A AFPM #### [address] [address] Records Supervisor: Thor Hernández MD [facility] [address] [place] [address] Records Supervisor: Tim Vizcarra MD #### FT4, TSH, FT3 #### [address] [address] Records Supervisor: Thor Hernández MD Number of Fetuses Twins Normal [facility] Comment on above: Performed By: #### A AFPM #### [address] [address] Records Supervisor: Thor Hrenández MD [address] [phone] Records Supervisor: Tim Vizcarra MD #### FT4, TSH, FT3 #### [address] [address] Records Supervisor: Thor Hernández MD Patient's AFP 46 ng/mL Normal [facility] Comment on above: Performed By: #### A AFPM #### [address] [address] Records Supervisor: Thor Hernández MD [address] [address] [address] Records Supervisor: Tim Vizcarra MD #### FT4, TSH, FT3 #### [address] [address] Records Supervisor: Thor Hernández MD Smoking Unknown [facility] Comment on above: Performed By: #### A AFPM #### [address] [address] Records Supervisor: Thor Hernández MD [address] [place] [address] Records Supervisor: Tim Vizcarra MD #### FT4, TSH, FT3 #### [address] [address] Records Supervisor: Thor Hernández MD Specimen See Note [facility] Comment on above: Result Comment: (NOT E) Initial sample Performed By: [facility] [employer] [address] [place] [id number] Piece Marker Small Arms: Morro Modi MD, PhD CLIA Number: [id number] Performed By: #### A AFPM #### [address] [address] Records Supervisor: Thor Hernández MD [address] [address] Records Supervisor: Tim Vizcarra MD #### FT4, TSH, FT3 #### [address] [address] Records Supervisor: Thor Hernández MD [facility] 07-27-2023 Current Smoking INFORMATION NOT PROVIDED [facility] Comment on above: Performed By: #### A AFPM #### [address] [address] Records Supervisor: Thor Hernández MD [address] [address] Records Supervisor: Tim Vizcarra MD #### FT4, TSH, FT3 #### [address] [address] Records Supervisor: Thor Hernández MD [facility] Comment on above: Performed By: #### A AFPM #### [address] [address] Records Supervisor: Thor Hernández MD [address] [address] Records Supervisor: Tim Vizcarra MD #### FT4, TSH, FT3 #### [address] [address] Records Supervisor: Thor Hernández MD Diabetic Negative [facility] Comment on above: Performed By: #### A AFPM #### [address] [address] Records Supervisor: Thor Hernández MD [facility] [address] [place] [address] Records Supervisor: Tim Vizcarra MD #### FT4, TSH, FT3 #### [address] [address] Records Supervisor: Thor Hernández MD Donor Egg INFORMATION NOT PROVIDED [facility] Comment on above: Performed By: #### A AFPM #### [address] [address] Records Supervisor: Thor Hernández MD [address] [id number] Records Supervisor: Tim Vizcarra MD #### FT4, TSH, FT3 #### [address] [address] Records Supervisor: Thor Hernández MD Estimated Due Date 01/06/2024 [facility] Comment on above: Performed By: #### A AFPM #### [address] [address] Records Supervisor: Thor Hernández MD [address] [address] Records Supervisor: Tim Vizcarra MD #### FT4, TSH, FT3 #### [address] [address] Records Supervisor: Thor Hernández MD Family History Negative [facility] Comment on above: Performed By: #### A AFPM #### [address] [address] Records Supervisor: Thor Hernández MD [address] [address] Records Supervisor: Tim Vizcarra MD #### FT4, TSH, FT3 #### [address] [address] Records Supervisor: Thor Hernández MD In Vitro Fertalizat INFORMATION NOT PROVIDED [facility] Comment on above: Performed By: #### A AFPM #### [address] [address] Records Supervisor: Thor Hernández MD [address] [address] Records Supervisor: Tim Vizcarra MD #### FT4, TSH, FT3 #### [address] [address] Records Supervisor: Thor Hernández MD LMP date 2023 [facility] Comment on above: Performed By: #### A AFPM #### [address] [address] Records Supervisor: Thor Hernández MD [address] [address] Records Supervisor: Tim Vizcarra MD #### FT4, TSH, FT3 #### [address] [address] Records Supervisor: Thor Hernández MD Maternal date 1990 [facility] Comment on above: Performed By: #### A AFPM #### [address] [address] Records Supervisor: Thor Hernández MD [address] [address] Records Supervisor: Tim Vizcarra MD #### FT4, TSH, FT3 #### [address] [address] Records Supervisor: Thor Hernández MD Maternal Weight 239 Normal [facility] Comment on above: Performed By: #### A AFPM #### [address] [address] Records Supervisor: Thor Hernández MD [facility] [address] [place] [address] Records Supervisor: Tim Vizcarra MD #### FT4, TSH, FT3 #### [address] [address] Records Supervisor: Thor Hernández MD Monochorionic Twins Positive Normal [facility] Comment on above: Performed By: #### A AFPM #### [address] [address] Records Supervisor: Thor Hernández MD [address] [address] Records Supervisor: Tim Vizcarra MD #### FT4, TSH, FT3 #### [address] [address] Records Supervisor: Thor Hernández MD Patient Weight Units LBS Normal [facility] Comment on above: Performed By: #### A AFPM #### [address] [address] Records Supervisor: Thor Hernández MD [facility] [address] [place] [address] Records Supervisor: Tim Vizcarra MD #### FT4, TSH, FT3 #### [address] [address] Records Supervisor: Thor Hernández MD Race (Maternal) Normal [facility] Comment on above: Performed By: #### A AFPM #### [address] [address] Records Supervisor: Thor Hernández MD [address] [address] Records Supervisor: Tim Vizcarra MD #### FT4, TSH, FT3 #### [address] [address] Records Supervisor: Thor Hernández MD Repeat Specimen INFORMATION NOT PROVIDED Normal [facility] Comment on above: Performed By: #### A AFPM #### [address] [address] Records Supervisor: Thor Hernández MD [address] [id number] Records Supervisor: Tim Vizcarra MD #### FT4, TSH, FT3 #### [address] [address] Records Supervisor: Thor Hernández MD Valproic/Carbamazep INFORMATION NOT PROVIDED Normal [facility] Comment on above: Performed By: #### A AFPM #### [address] [address] Records Supervisor: Thor Hernández MD [address] [address] Records Supervisor: Tim Vizcarra MD #### FT4, TSH, FT3 #### [address] [address] Records Supervisor: Thor Hernández MD Thyroxine, Freeon 07-27-2023 Thyroxine, Free 1.0 ng/dL Normal 0.92-1.68 [facility] Comment on above: Performed By: #### A AFPM #### [address] [address] Records Supervisor: Thor Hernández MD [facility] [address] [place] [address] Records Supervisor: Tim Vizcarra MD #### FT4, TSH, FT3 #### [address] [address] Records Supervisor: Thor Hernández MD Protein,Tot,[place] 2023 Creatinine [Mass/Vol] 273.0 mg/dL High 28.0-217.0 Me [facility] Comment on above: Performed By: #### U RTPRT #### [address] [address] Records Supervisor: Thor Hernández MD Tot Prot. Conc. 21 mg/dL Normal [facility] Comment on above: Result Comment: No n ormal range established. Performed By: #### U RTPRT #### [address] [address] Records Supervisor: Thor Hernández MD TP/Cre Ratio 0.08 Normal [facility] Comment on above: Performed By: #### U RTPRT #### [address] [address] Records Supervisor: Thor Hernández MD T3, Freeon 0 Free T3 [Mass/Vol] 3.40 pg/mL Normal 2.00-4.40 [facility] Comment on above: Performed By: #### A AFPM #### [address] [address] Records Supervisor: Thor Hernández MD [facility] [address] [place] [address] Records Supervisor: Tim Vizcarra MD #### FT4, TSH, FT3 #### [address] [address] Records Supervisor: Thor Hernández MD Thyroid Stim. Horm.on 2023 Thyroid Stim. Horm. <0.01 Low 0.27-4.20 [facility] Comment on above: Performed By: #### A AFPM #### [facility] [address] [place] [address] Records Supervisor: Thor Hernández MD [address] [address] Records Supervisor: Tim Vizcarra MD #### FT4, TSH, FT3 #### [facility] [address] [place] [address] Records Supervisor: Thor Hernández MD ED Note-Physicianon 05-14-19 ED [...] see dentistry until she is cleared by ASSURANCE ANALYST. She does not have an appointment for ASSURANCE ANALYST to next week. She has no OB [...] day(s), # 15 tab(s), Refills(s) 0, Pharmacy: [facility], 160, cm, 05/13/23 11:33:00 EST, Height/Length [...] Oral, q6hr Follow-up With When Contact Information [place] In 3 days 05/16/2023 EDT [address] [place] [address]- Business (1) Additional Instructions: Dentistry follow-up Patient [...] made to ensure accuracy, however, inadvertently computerized vocal music instructor mistakes may be present. Appropriate healthcare PPE was used in evaluating this patient. Problem List/Past Medical History Ongoing Acute hepatitis C Anxiety Apnea, sleep Dental caries PCOS (polycystic ovarian syndrome) Historical No qualifying data Procedure/Surgical History Delivery. Medications Inpatient ampicillin-sulbacta m additive + Sodium Chloride 0.9% intravenous solution 100 (more content not included)... [facility] Comment on above: Result Comment: Elec tronically Signed By: Greg Stratton PA-C\.br\Date and Time Signed: 05/13/23 12:45 EST\.br\Electronically Co-Signed By: Jonathan Martinez DO\.br\Date and Time Co-Signed: 05/14/23 07:40 EST Consent for Treatmenton Consent for Treatment [id number] EC#1.00TIFF [facility] Discharge Instructionson Discharge Instructions [id number] 40 [id number] 53#1.00TIFF Normal [facility] ED Clinical Summaryon 2023 ED Clinical Summary [address] [address] ED Clinical Summary Person Information Name: TIA MONROE/[facility] Age: 33 Years : 1990 Sex: Female Language: Zambian PCP: Linda Sheppard DO Marital Status: Visit [...] 13:02:19 05/13/2023 13:02:19 05/13/2023 13:02:19 ADDRESS: [address] [facility] [id number] PHYS DOC NOTES: MEDICAL INFORMATION: Prescriptions Given: New Medications [facility], [address] [place], [place] [id number], [phone] oxycodone (oxyCODONE 5 mg Tab) 1 Tablets [...] Dental Abscess Follow up: With: Address: When: [place] [phone] Business (1) In 3 days 05/16/2023 Comments: Dentistry follow-up DIAGNOSIS: Dental abscess Normal [facility] ED Patient Education Noteon 05-13-2023 [...] these instructions at home: Medicines ? Take mkbk-akn-cyuupkd and prescription medicines only as told by [...] mouth. ? (more content not included)... Normal [facility] ED Patient Summaryon 024 ED Patient Summary [address] [address] Patient Discharge Instructions Person Information Name: TIA MONROE Age: 33 Years Arrival Date: 05/13/2023 11:19:01 Discharge Diagnosis: Dental abscess Primary Care Physician: Linda Sheppard DO Provider Information Primary Provider: Jonathan Martinez DO Advanced Poultry Husbandman:Greg Stratton PA-C The exam and treatment you received in the Emergency Department were for an urgent problem and are not intended as complete care. It is important that you follow up with a doctor, nurse practitioner, or physician?s technical services assistant for ongoing care. If your symptoms become worse or you do not improve as expected and you are unable to reach your usual health care provider, you should return to the Emergency Department. We are available 24 hours a day. TIA MONROE has been given the following list of patient education materials, prescriptions and follow-up instructions: Follow-up Instructions: With: Address: When: [employer] [address] [address] Business (1) In 3 days 05/16/2023 Comments: Dentistry follow-up In the event that this physician does not participate in your insurance network, please consult with your insurance company to find a nearby participating provider. Patient Education Materials: Dental Abscess A MESSAGE TO ALL PATIENTS REGARDING OPIOIDS PRESCRIPTION OPIOIDS: WHAT YOU NEED TO KNOW Prescription opioids can be used to help relieve darufmfr-kt-njnyel pain and are often prescribed following a [...] be struggling with addiction, tell your health medical care evaluation specialist and ask for guidance or call [facility] National Helpline at 0-456-5 (more content not included)... Normal [facility] Discharge Instructionson Discharge Instructions [id number] 40 [id number]#1.00TIFF Normal [facility] ED Clinical Summaryon 2023 ED Clinical Summary [address] [address] ED Clinical Summary Person Information Name: TIA MONROE Maria Elena/[facility] Age: 33 Years : 1990 Sex: Female Language: Zambian PCP: Linda Sheppard DO Marital Status: Visit [...] 23:59:00 05/11/2023 23:59:00 05/11/2023 23:59:00 ADDRESS: [address] [facility] [id number] PHYS DOC NOTES: MEDICAL INFORMATION: Prescriptions Given: New Medications [facility], [address] [place], [place] [id number], [phone] amoxicillin-clavula cindi (Augmentin 875 mg oral tablet) [...] Medication PATIENT EDUCATION INFORMATION: Instructions: Dental Pain, Bigy-qw-Xawi Follow up: With: Address: When: Linda Sheppard DO, [address] [place] [address] In 3 days 05/14/2023 DIAGNOSIS: 1:Pain, dental; 2:Infected dental caries; 3:First trimester ; Periapical abscess without sinus Normal [facility] ED Note-Physicianon 05-12-19 ED Note-Physician Basic Information Time Seen: Selena HALL, Violet E. 05/11/2023 22:59 Chief Complaint pt arrives for c/o dental pain on the right upper side. states cannot see her denitist d/t being . pt states seen in [facility] and started on amoxcillin. History of Present Illness Patient is a 7-week 33-year-old female with history of PCOS that presents to the ED with her for evaluation of dental pain. Patient says pain started on Tuesday. She localizes it to the right upper jaw, radiates into her face ear and cheek. She went to [place] [facility] yesterday and was initiated on amoxicillin [...] day(s), # 14 tab(s), Refills(s) 0, Pharmacy: [facility], 160, cm, 05/11/23 21:53:00 EST, Height/Length Dosing, 110, kg, 05/11/23 21:53:00 EST, Weight Dosing chlorhexidine topical, 0.018 gm, 15 mL, Oral, BID, 480 mL, Refill(s) 0, (swish and spit; do not swallow), [employer], 160, cm, 05/11/23 21:53:00 EST, Height/Length Dosing, 110, kg, 05/11/23 21:53:00 EST, Weight Dosing (more content not included)... Normal [facility] Comment on above: Result Comment: [...] these instructions at home: Medicines ? Take odfe-bde-udrhpvx and prescription medicines only as told by [...] to the area. Brushing your teeth ? [place] your teeth twice a day using a [...] when you eat or drink. ? Take elbk-gxo-ikqxwgg and prescription medicines only as told by [...] Reviewed: 11/26/2020 Elsevier Patient Education ? 2022 [employer] Normal [facility] ED Patient Summaryon 024 ED Patient Summary [address] [address] Patient Discharge Instructions Person Information Name: TIA MONROE Age: 33 Years Arrival Date: 05/11/2023 21:25:54 Discharge Diagnosis: 1:Pain, dental; 2:Infected dental caries; 3:First trimester ; Periapical abscess without sinus Primary Care Physician: Linda Sheppard DO Provider Information Primary Provider: Zac Fields M.D. Advanced Poultry Husbandman:Violet Walters PA-C The exam and treatment you received in the Emergency Department were for an urgent problem and are not intended as complete care. It is important that you follow up with a doctor, nurse practitioner, or physician?s technical services assistant for ongoing care. If your symptoms [...] Instructions: With: Address: When: Linda Sheppard DO [address] [place] [address] [address] , [facility] [address] [place] [address] In 3 days 05/14/2023 In the event that this physician does not participate in your insurance network, please consult with your insurance company to find a nearby participating provider. Patient Education Materials: Dental Pain, Adpf-or-Exvf A MESSAGE TO ALL PATIENTS REGARDING OPIOIDS PRESCRIPTION OPIOIDS: WHAT YOU NEED TO KNOW Prescription opioids can be used to help relieve tommcwak-gp-xpzwhx pain and are often prescribed following a [...] be struggling with addiction, tell your health medical care evaluation specialist an (more content not included)... Normal [facility] Consent for Treatmenton Consent for Treatment [id number] 96#1.00TIFF [facility] Progesteroneon 12-28-2022 Progesterone 12.60 ng/mL [facility] Comment on above: Result Comment: Female: Follicular phase <0.19 ng/mL Ovulation phase 0.06-4.14 ng/mL Luteal phase 4.11-14.5 ng/mL Postmenopausal <0.13 ng/mL Performed By: #### P NICKY #### [facility] [place] [address] Records Supervisor: Thor Hernández MD Progesteroneon 11-24-2022 Progesterone 7.18 ng/mL High 0.0-0.15 [facility] Comment on above: Result Comment: Female: Follicular phase <0.19 ng/mL Ovulation phase 0.06-4.14 ng/mL Luteal phase 4.11-14.5 ng/mL Postmenopausal <0.13 ng/mL Performed By: #### P NICKY #### [facility] [address] [place], [place] [id number] Records Supervisor: Thor Hernández MD , Urineon 3 HCG ( test) Ql (U) Negative NEGATIVE [facility] XR ANKLE RIGHT (MIN 3 VIEWS) on 09-04-2022 FINDINGS/IMPRESSION : No acute displaced fracture identified. Ankle mortise is symmetric. There is a 1 mm tiny calcified body which is remote appearing near the distal fibular tip. Minimal ankle soft tissue edema. [facility] EXAM: XR ANKLE RIGHT (MIN 3 VIEWS) INDICATION: Reason for exam:->swelling COMPARISON: None. TECHNIQUE: Radiographs as described above [facility] Bettye Johnson MD - 09/04/2022 EXAM: XR ANKLE RIGHT (MIN 3 VIEWS) INDICATION: Reason for exam:->swelling COMPARISON: None. TECHNIQUE: Radiographs as described above IMPRESSION: FINDINGS/IMPRESSION : No acute displaced fracture identified. Ankle mortise is symmetric. There is a 1 mm tiny calcified body which is remote appearing near the distal fibular tip. Minimal ankle soft tissue edema. [facility] Radiology Study observation (narrative) [facility] XR ANKLE RIGHT (MIN 3 VIEWS) Ordered By: Bettye Johnson on 09-04-2022 [facility] Work Phone: Coding Summary.on 07-09-2022 Coding Summary. CD:[id number] bWw+PGhlYWQ+JQ7WMRR cL47wsIFpxW9bR0CGDZ lOSywgQVBQTElOSyIgb oBdSP3awTDgMUVe IC8+QG6wIFNgAxzlfFD ug6L4zYZ8B01ecc9nRT xmmXA2BHPrYuSareunv 0inqDs0QJsyBlttBuXd BSQwlS49RGL7mP59Ol4 9iIIxiYGhr1oelZu3Wz YxIGCtVSD5rQowVDkhd 2FkFKKrQ88wuBVim9F2 IGNvbGxhcHNlOyBlbXB 5kQ4rUNjuknzde2atfx ocJil3hy52lTLgh5Q2q FY1H1EclqH6WSGpcIAu QzxepVLBzH4pnqqis0y yiprjTtEfNOKbHUr0RE n0MLBbdCvgAbCdVX61B RZ4PNZomqUnN9BuXCEe eMkvXcW6q9A5Uj0OF6R BDlejT1ZCMJDCYKlxsP Q+NB12jw83J2YxXzrlB of9TUUgGDS9lXF3uN0j YFMzHTrly0H4oLA8F7O zhiKgfw7gu8saDULvBA jvP36coKLvt9K7FICmo OK0GHYbvAhyHuPooS16 Oyc+GFQxaMdbf5JnErt ay4idm3ccbKl3MqnxOH CqhyRozLbtNOB8a1HrD u8oOQJfwWX4vUL4lL5e DoKpLcV5VRqiK813OkY rpAAcIhvwB10cL9TilP A+EDXrZly8JPBxvIaiQ B8cQ1PvCPAjltxkcJNt fRmvVD6dJMDjvooaOVC kuV8vQCLgJ0z3BvVcFs Y2INmuE5JyKUSdsooqQ j69oO9aKeHyAhC8WNsx A8OzkaO0OQHbfXCrGXd jVVI4T40cs5U5HWNzRS XrSNT2zNF3cG0vhIowe jogbGVmdDsgdmVydGlj SWkzUIxnX534TNCvjRg nPkNvZGluZyBEYXRlOi AgMDUvMDUvMjAyMzwvd GQ+QWKqDOV2cMmqOMFu vAKkNRotXe1rtUdqlQr hEG6lXHHbmyzqMSJpeA 2xAQIpqKOrjGfnZI1qM GKvgtqbd501YuAgEIA8 ZNDtzCRvR8NeeF9yVlP vEWIwYGAhO2TkzCTvUW imZ306RYhrSqL5EYAoh kOuB9ZlZRUliPauYxB4 v2C9Qq8Tf8RgnolkG2E ejRJxGuExGqgiZPp3B7 RkPjwvdHI+CB59DOJfJ R53RQt8PON1fEtpIHii KSRcA7OsvD5gHnOxFUZ kZGRkOyc+PHRhYmxlIH dpZHRoPScxMDAlJyBzd TuzVW0hUq3wJOMrENBr eZiwdOEmZcNht8gxURX cPNxqGC6hwIvcE8GiaP O3MZKpu8k4Xn05A87gA 3JvdXA+JQMyyXE8gJT2 hY7nFcDiGlN7MYlnB92 7LkSjiYCpOkjsx6pgs5 jzzTl9ZfJ1XQUgiiLcj SdvXLT4g9TfVx37Y38q IHdpZHRoPSIxNSUiIHZ dpGlbjt8kmR3vDx7+PG FbhJP5pHK6tV5fNbBtX uH5GJagT628DuIseVJd Dpisy7srx6htjRg2DxE uCUKxxiKkgJihZOG9t9 NtSs15T7WqaUphx7CkO yy7pg56qRGsi4P6yUS5 D2TaEOAscsmejSZydQr xLW5uILJxfryzTRRlkL 9qBFAlI9z2XqRoYjP8E HsxD8WuacO2ZFQixIFp YXZclIURhF0gqfkkw4y bdoxyIoUnKWVqKIk5MR o5JIRumQtaQpVuFQL4U wK2YXE2mFDrnY2btMfn aqbbgR4rMzk+MMF0wZQ npDKDAH9yQwwywJX+PH RgBHC3uZjiOBvjVWNml Q7uCVVgQ3d9LoLpYsO2 ZKkqL0HjaiC5DRTmnDV nMBHhyWQGtG7elpkot4 oxkbwgMmWpRZEvHEp7N Fy2QOJsfCpdMzBlMSF7 NbE2AHP3bZPunV4bqSp ulfexnX3mZkm+QmlydG pdKLA1FRr7T0LfUai2N TLhoCzzIJ1atWCrAJdi Uo3uzDiqcNobCW3fFHS hordet053HbPre3coUW OtwMQuEQswVQQ9X39sr 8V0MXRrAHXyBNI9eNG5 yR9kvKbagtarjFJodKz gdmVydGljYWwtYWxpZ2 56CDQohDweGuAxWWc5D 5YdBig4UMHbsEqrAH2u hZAuSRjtGl3ftPgooGu kWS3tKWRejzeix060Yr Tws7tkMHPygHJgWTzdN MO6A16ao9X2JUNrTTJa ZMX9wAP4kW2sgKuqxnf gbGVmdDsgdmVydGljYW pwOVseO899HCEnvMdqQ iEcsVi7Y4IlDwt4DELg kIqxRM3hsCHeWHujBl7 ymEnojPsuCX0iKKErol irc193JuVlb4lwXVHck JGjLZdmADQ2T72vy0M3 QYMpUQGsYOU2oIR0dG6 hbGlnbjogbGVmdDsgdm IymIwjTVftBEobT780G HRvcDsnPlBhdGllbnQg CUsnHUc9F8IkYbbqoAM +TX55FRHwWQ79hDEekU Cre5lraXh9YuRaYEEeB GT9eOlsPThmj9KaHNPr Q99muWOpi9A4BBSqeDl ciBMxCmOfoTO2hM9gYT hgoszlu5istwalNlhjf 6efys08hN69E08iXDyp ZHRoPSIzMCUiIHZhbGl nyy4ssW5yXs1+PGNvbC K4rUJ1hW1aWLIyMtE4B KofV678YtRfpAAjPyyo v5mjg3bdlMa4QbA7CDA ghzJrqAioEKA6a1XuRr 85O63pZJnsLVXbMWExZ FOuMZJxyVpima3kjM7b Ii8+ODNlwVA9zUN6pZ8 dNzZbWgC4BRqvK719Uz NetXKwUzggX15eZ9Sxg XA+ECMkCey4EZJeiLzr KB1joEEnIBzzPk9iJLA 1MbNkGrEjYMdpX2XhIY ZwfsjmylsbdMG1KOTrD SDnsD36Vb7fyIwkEMAi gKYJxI0cjxlbf5cgtov uRuLuNRZkUEn5TFp5OP UtwDwpCfAmUVS0BkR2U PT7vVJskD4xxDssywtq yZ1qH3GgHMHctiphEm1 6hK7zQqHhRhE9LDayWg c+Iw1RNnBHDsicQtKXU kRJRTwvdGQ+PHRkIHN0 lYwwZFtbYIXzpM5yOWG kT2s5PcHlSzN6QHxxF1 GySUUywwhcSo81pB0lK vOkGnM3BJneZ1TqzkY0 NOYhxCKrNQkfNUA2P72 vf9Y0SPZaDDKcXOW1aI R2xH2zqYmckqlbxSHhc DsgdmVydGljYWwtYWxp T019QAVhfZdnTbKqMmY 7FoO2RTX9A4IsExu5WC QeuTmrZS8gfDKxYTouM t4apGjakIvpOJ6jCGXq oolvJEMfyF2hYZLlnVY ahGwqME3lFSHgyzizb5 65TjCcPAE6PQButKYbS 2ZegO4kXzTsBUKlYYCi M6GlnLKdPXqvW288UAd mZsP3KHHxbuQcG2WfQW ZeoWdiCkV0x3I5Rk4sU iBZZWFyczwvdGQ+PHRk VTD3kTmyGWfqUDBkmR3 fEZAxM7f4HiHoPpX5QQ uhJ6WtYVZmaytsOm34z S2qVjNjWhZ7XMxhY6Jq liZ3KPQamTWdWHezSUS 1X81ry5G1TQMgJZJsEL W5sBM5xU9kbQpvgruyq GVmdDsgdmVydGljYWwt FKylN500KWPgtQisTaI lbWFsZTwvdGQ+PHRkIH N0lXolFKvmNGGidU7oH IReW9r8FdSqGuL0GGvx L4WoKEMgzdyxMb38dL3 dCoKzCbL1ENwlP9Uzwj Z4HFXvfDWbYYwdKOL7O 48xr2E1QAQzPDAvTZL9 nEC9cB4mnYcrjlieeEK mdDsgdmVydGljYWwtYW keE891ZAErlKefYjNts J5nCUThSXvffQZwyTln dGQ+CF39qw34O5ZzVbb uDlk1MYJzUPM6tTE9rV 1xLBTbHCjcy6T6xYL6Y 6UgsnEsbt8go1xxGCCf SOpeU85hiVMec3W1TEW svDP3APDuwPofFvQgqL 93Oyc+DJBwaKofr0OiC ltci2mlm3abnBn2GlXa UKAxniZgsNuaVIT0x6W lOa23Z15vIHcpIADrVU CyMXYwXZChoHqbfy8od G9wIi8+CEWiwUH4oUG9 gR8qYdQqDyO7QZwpA38 8AlZfkPEvZfqlt5lmj3 grpOa8TeVeXDVwgxLqs BgwKNN1g2RtKh57T8Rt xGqfq5EiIec3fw46kCZ sw8V8rDM5P5HjZBQhzo ihcADtnHawKB3gIHSru ptyLLYopV4aIFBnC8j9 CzJjBfK0EDubV4OhwwG 6IGJvbGQgMTBwdCBUaW 3gjpudg0deyxbpTlRoK YEvBKs3VEp0CHVjfQuy DqQtAUT3OaD3LND9xAI leI3idLngcrtflR7mLr c+ZWr8z0duzTQbUC6ut DI3JA93FB88gJPgl5Y2 gRP7B2TaCWCvwqsqdwv niDA7NUUzCLDhtV94Cd 9jxYndWh6rZQOsKFC0S UOrcBOrJ3AlsF5iKjHu CGXcIETnY7NroRFcUGz sK025PXaeRhE6XWDpdz AsA0HeRUYbaWzkUvR0h 7W6Rt5GOF13DW35VQ47 pOCws5Z4yUE1G0MlZVV xmncugxcyhTF6NWZcQP AqjZ25Ke7zpMiqRm0uI UBcZUX5AHKjwBOeN4Cl lP6bKlLqPWPbZTTrX5V ziYTuKGgcT339YBdoIu E1HKCurvSsX2IbIPSnf JwuJaY7y3Z1Xe8LPa33 KF99BK07xHJji0Z9pZL 6G1PfJMUdnnecbwkfmF M8JJDgCLUqxV17Ia6uk RmeZp5rRPQdIJA9EVHu lJGlN5AyfL4zZjCpNBV cPQVvJ8IjtOFiIKouJ6 49WBrbIwP0VNHlhdKxB 2WoQQVsaRtgKlO4a7S9 Nv7IAYifzjf6D7YvXmq vdHI+DI85BMSwQB38nB IcyFQro8nhaVv5YwRcB DZqSPN7sYomCUyyp2Kn PINeK17h (more content not included)... Normal [facility] Consultation Noteon 07-07-19 Consultation Note [...] Problems Acute hepatitis C / SNOMED CT 275515904 / Confirmed Anxiety / SNOMED CT 64616621 / Confirmed Apnea, sleep / SNOMED CT 910181730 / Confirmed Dental caries / SNOMED CT 861603650 / Confirmed PCOS (polycystic ovarian syndrome) / SNOMED CT 768184268 / Confirmed Histories Past Medical History: Active Dental caries ([id number]) Family History: No family history items have [...] Patient agrees with plan of care. Normal [facility] Comment on above: Result Comment: Elec tronically Signed By: Bing PEDRAZA, Todd Spencer.br\Date and Time Signed: 07/06/22 13:28 EDT DHEA SERUMon 07-04-2022 Dehydroepiandrosterone (DHEA) 220 ng/dL Normal 31-701 [facility] Comment on above: Performed By: #### Vijaya OMER. ####[facility] [id number] [place], [place] [address]ArSelwyn Sanchez DHEA-SULFATEon 06-30-2022 DHEA-Sulfate 106.0 ug/dL Normal 84.8-378.0 [facility] Comment on above: Performed By: ###Jessica TATUM ####[facility] [id number] [id number]. Nito Sanchez FSHon 06-30-2022 FSH 6.6 mIU/mL Normal [facility] Comment on above: Result Comment: Adul t Female: Follicular phase 3.5 - 12.5 Ovulation phase 4.7 - 21.5 Luteal phase 1.7 - 7.7 Postmenopausal 25.8 - 134.8 Performed By: #### L BCFS #### [facility] [address] [place] [address] Dr. Nito Sanchez LUTEINIZING HORMONE (LH)on 0 06-30-2022 LH 18.9 mIU/mL Normal [facility] Comment on above: Result Comment: Adul t Female: Follicular phase 2.4 - 12.6 Ovulation phase 14.0 - 95.6 Luteal phase 1.0 - 11.4 Postmenopausal 7.7 - 58.5 Performed By: #### L BCLH #### [facility] [address] [place] [address] Dr. Nito Sanchez PROLACTINon 06-30-2022 Prolactin 5.3 ng/mL Normal 4.8-23.3 [facility] Comment on above: Performed By: #### P ROLAC #### [facility] [address] [place] [address] Dr. Nito Sanchez CBC AUTO DIFFon 06-29-2022 BASO # 0.1 103/ul Normal 0.0-0.1 [facility] Comment on above: Performed By: #### C BC #### [facility] [address] [place] [address] Dr. Nito Sanchez Basophils/100 WBC (Bld) 0.5 % Normal 0.2-2.0 [facility] Comment on above: Performed By: #### C BC #### [facility] [address] [place] [address] Dr. Nito Sanchez EO # 0.2 103/ul Normal 0.0-0.7 [facility] Comment on above: Performed By: #### C BC #### [facility] [address] [place] [address] Dr. Nito Sanchez Eosinophils/100 WBC (Bld) 1.6 % Normal 0.9-7.0 [facility] Comment on above: Performed By: #### C BC #### [facility] [address] [place] [address] Dr. Nito Sanchez Erythrocyte distribution width (RBC) [Ratio] 13.6 % Normal 11.0-15.0 [facility] Comment on above: Performed By: #### C BC #### [facility] [address] [place] [address] Dr. Nito Sanchez Hematocrit (Bld) [Volume fraction] 39.7 % Normal 36.0-48.0 [facility] Comment on above: Performed By: #### C BC #### [facility] [address] [place] [address] Dr. Nito Sanchez Hemoglobin (Bld) [Mass/Vol] 13.1 g/dL Normal 12.0-16.0 [facility] Comment on above: Performed By: #### C BC #### [facility] [address] [place] [address] Dr. Nito Sanchez IG # 0.05 10e3/ul Critically high 0.00-0.03 [facility] Comment on above: Performed By: #### C BC #### [facility] [address] [place] [address] Dr. Nito Sanchez IG % 0.5 % Normal 0.0-0.5 [facility] Comment on above: Performed By: #### C BC #### [facility] [address] [place] [address] Dr. Nito Sanchez LYMPH # 2.6 103/ul Normal 1.2-3.8 [facility] Comment on above: Performed By: #### C BC #### [facility] [address] [place] [address] Dr. Nito Sanchez Lymphocytes/100 WBC (Bld) 25.3 % Normal 20.5-60.0 [facility] Comment on above: Performed By: #### C BC #### [facility] [address] [place] [address] Dr. Nito Sanchez MANUAL DIFF REQ NO Normal [facility] Comment on above: Performed By: #### C BC #### [facility] [address] [address] [address] Nito Sanchez MCH (RBC) [Entitic mass] 27.1 pg Normal 26.7-34.0 [facility] Comment on above: Performed By: #### C BC #### [facility] [address] [place] [address] Dr. Nito Sanchez MCHC (RBC) [Mass/Vol] 33.0 g/dL Normal 29.9-35.2 [facility] Comment on above: Performed By: #### C BC #### [facility] [address] [place] [address] Dr. Nito Sanchez MCV (RBC) [Entitic vol] 82.2 fL Normal 81.0-99.0 [facility] Comment on above: Performed By: #### C BC #### [facility] [address] [place] [address] Dr. Nito Sanchez MONO # 0.5 103/ul Normal 0.3-0.8 [facility] Comment on above: Performed By: #### C BC #### [facility] [address] [place] [address] Dr. Nito Sanchez Monocytes/100 WBC (Bld) 5.0 % Normal 1.7-12.0 [facility] Comment on above: Performed By: #### C BC #### [facility] [address] [place] [address] Dr. Nito Sanchez NEUT # 6.9 103/ul Critically high 1.4-6.5 [facility] Comment on above: Performed By: #### C BC #### [facility] [address] [place] [address] Dr. Nito Sanchez Neutrophils/100 WBC (Bld) 67.1 % Normal 43.0-75.0 [facility] Comment on above: Performed By: #### C BC #### [facility] [address] [place] [address] Dr. Nito Sanchez Platelet mean volume (Bld) [Entitic vol] 10.0 fL Normal 9.5-13.5 [facility] Comment on above: Performed By: #### C BC #### [facility] [address] [address] [address] Nito Sanchez PLT 313 103/ul Normal 150-450 [facility] Comment on above: Performed By: #### C BC #### [facility] [address] [place] [address] Dr. Niot Sanchez RBC 4.83 106/ul Normal 4.20-5.40 [facility] Comment on above: Performed By: #### C BC #### [facility] [address] [place] [address] Dr. Nito Sanchez WBC 10.3 103/ul Normal 4.0-11.0 [facility] Comment on above: Performed By: #### C BC #### [facility] [address] [place] [address] Dr. Nito Sanchez Consent for Treatmenton 06-06 Consent for Treatment [id number] 650#1.00CD:127 Normal [facility] FREE T4on 06-29-2022 Free T4 [Mass/Vol] 1.01 ng/dL Normal 0.76-1.46 [facility] Comment on above: Performed By: #### F T4 #### [facility] [address] [place] [address] Dr. Nito Sanchez GLYCOHEMOGLOBIN A1Con 2022 ADA RECOMMENDATION SEE BELOW Normal [facility] Comment on above: Result Comment: ADA RECOMMENDED LIMIT 4.0 - 6.0 ADA THERAPEUTIC TARGET < 7.0 ACTION SUGGESTED > 7.0 Performed By: #### A 1C #### [facility] [address] [place] [address] Dr. Nito Sanchez Glucose [Mass/Vol] 108 mg/dL Normal [facility] Comment on above: Performed By: #### A 1C #### [facility] [address] [place] [address] Dr. Nito Sanchez HbA1c (Bld) [Mass fraction] 5.4 % Normal 4.5-6.2 [facility] Comment on above: Performed By: #### A 1C #### [facility] [address] [place] [address] Dr. Nito Sanchez HIPAA Forms Officeon 023 HIPAA Forms Office [id number] 602#1.00CD:127 Normal [facility] Legal Correspondence Officeo n 06-29-2022 Legal Correspondence Office [id number] 270#1.00CD:127 Normal [facility] Legal Correspondence Office [id number] 787#1.00CD:127 Normal [facility] Office/Clinic Note-Physician on 06-29-2022 Office/Clinic Note-Physician [id number] 515#1.00CD:127 Normal [facility] Orders Officeon 06-29-2022 Orders Office [id number] 642#1.00CD:127 [facility] PREG QUANT HCGon 06-29-2022 HCG QUANT 1 mIU/mL Normal [facility] Comment on above: Performed By: #### T BERNICE, PREGQNT #### [facility] [address] [place] [address] Dr. Nito Sanchez HCG RANGE SEE BELOW Normal [facility] Comment on above: Result Comment: 5-50 0.2-1 WEEK 50-500 1-2 WEEKS 100-5,000 2-3 WEEKS 500-10,000 3-4 WEEKS 1,000-50,000 4-5 WEEKS 10,000-100,000 5-6 WEEKS 15,000-200,000 6-8 WEEKS 10,000-100,000 2-3 MONTHS Performed By: #### T SH, PREGQNT #### [facility] [address] [place] [address] Dr. Nito Sanchez Patient Correspondenceon Patient Correspondence [id number] 946#1.00CD:127 Normal [facility] Patient Correspondence [id number] 137#1.00CD:127 Normal [facility] Patient Correspondence [id number] 273#1.00CD:127 Normal [facility] Patient Correspondence [id number] 879#1.00CD:127 Normal [facility] Patient Correspondence [id number] 956#1.00CD:127 Normal [facility] Patient History Officeon Patient History Office [id number] 983#1.00CD:127 Normal [facility] Patient History Office [id number] 721#1.00CD:127 Normal [facility] 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 Nito Sanchez US PELVIS AND TRANSVAGon [...] by: BETTYE DANIELS Date: 2022-06-29 15:17 Normal [facility] PAP ACOG PANEL 2: 30 to 65on 06-19-2022 . . Normal [facility] Comment on above: Result Comment: Perf ormed at: WB Performed By: #### [id number] #### [facility] [address] [address] [address] Nito Sanchez Age Gdln ACOG Testing - [facility] Comment on above: Performed By: #### 4 [id number] #### [facility] [address] [address] [address] Nito Sanchez DIAGNOSIS: Comment Normal [facility] Comment on above: Result Comment: NEGA TIVE FOR INTRAEPITHELIAL LESION OR MALIGNANCY. Performed at: WB Performed By: #### 4 [id number] #### [facility] [address] [address] [address] Nito Sanchez HPV Aptima Negative Normal Negative [facility] Comment on above: Result Comment: This nucleic acid amplification test detects fourteen high-risk HPV types (16,18,31,33,35,39,45,51,52,56,58,59,66,68) without differentiation. Performed at: =G Performed By: #### 4 [id number] #### [facility] [address] [address] [address] Nito Sanchez HPV Genotype Reflex Comment Normal [facility] Comment on above: Result Comment: Crit eria not met, HPV Genotype not performed. Performed at: WB Performed By: #### [id number] #### [facility] [address] [address] [address] Nito Sanchez Methodology: Comment Normal [facility] Comment on above: Result Comment: This liquid based ThinPrep(R) pap test was screened with the use of an image guided system. Performed at: WB Performed By: #### [id number] #### [facility] [address] [address] [address] Nito Sanchez Note: Comment Normal [facility] Comment on above: Result Comment: The Pap smear is a screening test designed to aid in the detection of premalignant and malignant conditions of the uterine cervix. It is not a diagnostic procedure and should not be used as the sole means of detecting cervical cancer. Both false-positive and false-negative reports do occur. . Performed at: WB Performed By: #### 4 [id number] #### [facility] [address] [address] [address] Nito Sanchez Performed by: Comment Normal [facility] Comment on above: Result Comment: Nanda Treadwell, Audio Visual Arts Director (ASCP) Performed at: WB Performed By: #### [id number] #### [facility] [address] [place] [address] Dr. Nito Sanchez Specimen adequacy: Comment Normal [facility] Comment on above: Result Comment: Sati sfactory for evaluation. Endocervical and/or squamous metaplastic cells (endocervical component) are present. Performed at: WB Performed By: #### 4 [id number] #### [facility] [address] [address] [address] MAXILLOFACIAL WO CONTRAST on 05-11-2022 Recent extraction of the right mandibular and maxillary second molar teeth with presence of air in the respective tooth sockets. No evidence of edema in the sublingual space or the buccal space Probable periapical abscess involving the right maxillary premolar tooth adjacent to the first molar tooth. [facility] RIS CONSOLIDATED EXAM: CT MAXILLOFACIAL WO CONTRAST [...] intracranial contents show no acute process. [facility] Phil Romero MD - 05/11/2022 EXAM: CT [...] tooth adjacent to the first molar tooth. [employer] Work Phone: Radiology Study observation (narrative) [employer] Work Phone: CT MAXILLOFACIAL WO CONTRAST Ordered By: Phil Mary on 05-11-2022 [employer] Work Phone: Urine Preg (Lab)on 3 Beta HCG ( test) Ql (U) Negative NEGATIVE [employer] HCG, Quantitative, on 03-29-2022 hCG Quant NINF [employer] Comment on above: Non-preg premeno <=5 Postmeno <=8 Male <=3 If HCG results do not concur with clinical observations, additional testing to confirm results is recommended. [employer] COVID-19, Rapidon 07-22-2021 SARS-CoV-2 (COVID-19) RNA KALPESH+probe Ql (Unsp spec) Not detected Not Detected [facility] Comment on above: Rapid NAAT: The specimen [...] management decisions. Fact sheet for Healthcare Providers: https://www.fda.gov/media/755087/download Fact sheet for Patients: https://www.fda.gov/media/128990/download Methodology: Isothermal Nucleic Acid Amplification Specimen Description .NASOPHARYNGEAL SWAB [facility] Strep Screen Group A Throato n 07-22-2021 S. pyogenes Ag Ql (Throat) Negative NEGATIVE [facility] Comment on above: Rapid Strep A negati ve. A negative Rapid Group A Strep Screen result does not rule out the possibility of Group A Streptococci in the specimen. A Group A Strep DNA test is available upon request. Source .THROAT SWAB [facility] MR LUMBAR SPINE WITHOUT CONT [facility] 06-17-2021 MR LUMBAR SPINE WITHOUT CONTRAST EXAMINATION: [...] foraminal stenosis. 2. No fracture or spondylolisthesis. [facility] Workstation ID: [id number] Dictated by: JONATHAN LINARES on TueJun 18, 2021 11:51:00 AM EDT Transcribed by: ZULMA CARDENAS on TueJun 18, 2021 11:58:13 AM EDT Finalized by: JONATHAN LINARES on TueJun 18, 2021 12:35:45 PM EDT [facility] Comment on above: Order Comment: Injur y/Trauma or Illness?:Illness/Other How long have you had these symptoms (acute/chronic)?:Chronic Reason for exam?:LBP AND bilat hip pain x years, nki Type of Exam?:Subsequent/Follow-up Additional signs and symptoms?:. CBC panel Auto (Bld)on 04-16 Erythrocyte distribution width (RBC) [Entitic vol] 14.0 % 11.6 - 14.8 % [facility] Hematocrit (Bld) [Volume fraction] 38.6 % 36.0 - 46.0 % [facility] Hemoglobin (Bld) [Mass/Vol] 12.1 g/dL 12.0 - 16.0 g/dL [facility] Interpretation and review of laboratory results Abnormal [facility] MCH (RBC) [Entitic mass] 25.4 pg Low 26. 0 - 34.0 pg [facility] MCHC (RBC) [Mass/Vol] 31.3 g/dL 31.0 - 37.0 g/dL [facility] MCV (RBC) [Entitic vol] 81.1 fL 80.0 - 100.0 fL [facility] Platelet mean volume (Bld) [Entitic vol] 10.0 fL 9.4 - 12.4 fL [facility] Platelets (Bld) [#/Vol] 379 10*3/uL [facility] RBC (Bld) [#/Vol] 4.76 10*6/uL [facility] WBC (Bld) [#/Vol] 9.85 10*3/uL [facility] Comprehensive metabolic 2000 panelon 04-16-2021 Albumin [Mass/Vol] 3.7 g/dL 3.2 - 5.2 g/dL [facility] ALP [Catalytic activity/Vol] 95 U/L 40 - 140 U/L [facility] ALT [Catalytic activity/Vol] 36 U/L 14 - 65 U/L [facility] Anion gap [Moles/Vol] 11 mmol/L 10 - 2 0 mmol/L [facility] AST [Catalytic activity/Vol] 22 U/L 0 - 45 U/L [facility] Bilirubin [Mass/Vol] 0.3 mg/dL 0.0 - 1 .3 mg/dL [facility] Calcium [Mass/Vol] 9.3 mg/dL 8.4 - 10. 2 mg/dL [facility] Chloride [Moles/Vol] 105 mmol/L 98 - 10 8 mmol/L [facility] Creatinine [Mass/Vol] 0.68 mg/dL 0.40 - 1.10 [facility] GFR/1.73 sq M.predicted CKD-EPI (S/P/Bld) [Vol rate/Area] 117 >=60 mL/min/1.73 m2 [facility] Glucose [Mass/Vol] 76 mg/dL 65 - 99 mg/dL [facility] HCO3 [Moles/Vol] 26 mmol/L 21 - 32 mmol/L [facility] Interpretation and review of laboratory results Normal [facility] Potassium [Moles/Vol] 4.2 mmol/L 3.5 - 5.1 mmol/L [facility] Protein [Mass/Vol] 7.5 g/dL 6.0 - 8.0 g/dL [facility] Sodium [Moles/Vol] 138 mmol/L 135 - 145 mmol/L [facility] Urea nitrogen [Mass/Vol] 13 mg/dL 8 - 25 mg/dL [facility] Urea nitrogen/Creatinine [Mass ratio] 19.1 mg/mg [facility] The eGFR should be used for monitoring renal function only and not for medication dosing. [facility] Lipid 1996 panelon Cholesterol [Mass/Vol] 195 mg/dL 100 - 199 mg/dL [facility] Comment on above: National Cholesterol Education Program Guidelines: Cholesterol Desirable: <200 mg/dL Borderline High: 200-239 mg/dL High: greater than or equal to 240 mg/dL Cholesterol in HDL [Mass/Vol] 56 mg/dL 40 - 59 [facility] Comment on above: National Cholesterol Education Program Guidelines: HDL Cholesterol Low: <40 mg/dL Near Optimal: 40-59 mg/dL High: greater than or equal to 60 mg/dL Cholesterol in LDL [Mass/Vol] 109 mg/dL 10 - 130 mg/dL [facility] Comment on above: National Cholesterol Education Program Guidelines: LDL Cholesterol Optimal: <100 mg/dL Near Optimal/above Optimal: 100-129 mg/dL Borderline High: 130-159 mg/dL High: 160-189 mg/dL Very High: greater than or equal to 190 mg/dL Cholesterol non HDL [Mass/Vol] 139 mg/dL [facility] Comment on above: National Cholesterol Education Program Guidelines: NON HDL Cholesterol Desirable: <130 mg/dL Borderline High: 130-159 mg/dL High: 160-189 mg/dL Very High: > or = 190 mg/dL Cholesterol.total/Cholest elton in HDL [Mass ratio] 3.5 {ratio} ratio [facility] Comment on above: Female Cholesterol/H DL Ratio: Average risk: 4.4 1/2 average risk: 3.3 2 x average risk: 7.1 Interpretation and review of laboratory results Abnormal [facility] Triglyceride [Mass/Vol] 151 mg/dL High 30 - 150 mg/dL [facility] Comment on above: National Cholesterol Education Program Guidelines: Triglyceride Normal: <150 mg/dL Borderline High: 150-199 mg/dL High: 200-499 mg/dL Very High: greater than or equal to 500 mg/dL No Panel Informationon 04-16 [facility] TSH DL <= 0.005 mIU/L Qnon 0 04-16-2021 Interpretation and review of laboratory results Normal [facility] TSH Qn 1.04 m[IU]/L [facility] Basic Metabolic Panel w/ Ref ray to MGon 03-23-2021 Anion gap [Moles/Vol] 13 mmol/L 9 - 17 mmol/L [facility] Calcium [Mass/Vol] 8.8 mg/dL 8.6 - 10. 4 mg/dL [facility] Chloride [Moles/Vol] 104 mmol/L 98 - 10 7 mmol/L [facility] CO2 [Moles/Vol] 21 mmol/L 20 - 31 mmol/L [facility] Creatinine [Mass/Vol] 0.65 mg/dL 0.50 - 0.90 mg/dL [facility] GFR >60 >60 mL/min [facility] GFR Non- >60 >60 mL/min [facility] GFR/1.73 sq M.predicted MDRD (S/P/Bld) [Vol rate/Area] [facility] Comment on above: Average GFR for 30-3 9 years old: 107 mL/min/1.73sq m Chronic Kidney Disease: <60 mL/min/1.73sq m Kidney failure: <15 mL/min/1.73sq m eGFR calculated using average adult body mass. Additional eGFR calculator available at: http://www.[employer]/multiple_crcl_2012.htm GFR/1.73 sq M.predicted MDRD (S/P/Bld) [Vol rate/Area] NOT REPORTED [facility] Glucose [Mass/Vol] 104 mg/dL High 70 - 99 mg/dL [facility] Interpretation and review of laboratory results Abnormal [facility] Potassium [Moles/Vol] 3.7 mmol/L 3.7 - 5.3 mmol/L [facility] Sodium [Moles/Vol] 138 mmol/L 135 - 144 mmol/L [facility] Urea nitrogen (BldV) [Mass/Vol] 15 mg/dL 6 - 20 mg/dL [facility] Urea nitrogen/Creatinine (Bld) [Mass ratio] 23 High [facility] CBC Auto Differentialon 03-07 Absolute Eos # 0.10 [facility] th Absolute Immature Granulocyte NOT REPORTED [facility] Absolute Lymph # 0.60 Low [facility] He alth Absolute [place] [facility] Basophils (Bld) [#/Vol] 0.00 10*3/uL [facility] Basophils/100 WBC (Bld) 0 % 0 - 2 % [facility] Differential Type YES [facility] ealt Eosinophils/100 WBC (Bld) 2 % 0 - 5 % [facility] Hematocrit (Bld) [Volume fraction] 34.6 % Low 36 - 46 % [facility] Hemoglobin.gastrointestin al spec 1 Ql (Stl) 11.7 g/dL Low 12.0 - 16.0 g/dL [facility] Immature Granulocytes NOT REPORTED 0 % [facility] Interpretation and review of laboratory results Abnormal [facility] Lymphocytes/100 WBC (Bld) 13 % Low 15 - 40 % [facility] MCH (RBC) [Entitic mass] 26.4 pg 26 - 34 pg [facility] MCHC (RBC) [Mass/Vol] 33.8 g/dL 31 - 3 7 g/dL [facility] MCV (RBC) [Entitic vol] 78.2 fL Low 80 - 100 fL [facility] Monocytes/100 WBC (Bld) 10 % High 4 - 8 % [facility] NRBC Automated NOT REPORTED per 100 WBC [facility] Platelet distribution width (Bld) [Ratio] 14.4 % 12.1 - 15.2 % [facility] Platelet Estimate NOT REPORTED [facility] Platelet mean volume (Bld) [Entitic vol] NOT REPORTED 6.0 - 12.0 fL [facility] Platelets (Bld) [#/Vol] 259 10*3/uL [facility] RBC (Bld) [#/Vol] 4.43 10*6/uL 4.0 - 5.2 m/uL [facility] RBC (Bld) [#/Vol] NOT REPORTED [facility] Segmented neutrophils/100 WBC (Bld) 75 % 47 - 75 % [facility] Segs Absolute 3.60 [facility] h WBC (Bld) [#/Vol] 4.8 10*3/uL [facility] WBC (Bld) [#/Vol] NOT REPORTED [facility] COVID-19, Rapidon 03-23-2021 Interpretation and review of laboratory results Abnormal [facility] SARS-CoV-2 (COVID-19) RNA KALPESH+probe Ql (Unsp spec) Detected Abnormal Not Detected [employer] Comment on above: Rapid NAAT: The specimen [...] this assay. Fact sheet for Healthcare Providers: https://www.fda.gov/media/977174/download Fact sheet for Patients: https://www.fda.gov/media/765765/download Methodology: Isothermal Nucleic Acid Amplification Results reported to the appropriate Health Department Specimen Description .NASOPHARYNGEAL SWAB [facility] No Panel Informationon 03-23 Direct Exam Negative [facility] [employer] Rapid influenza A/B antigens on 03-23-2021 Special Requests NOT REPORTED [facility] [employer] Specimen Description .NASOPHARYNGEAL SWAB [facility] COVID-19, RapidOrdered By: Shayy Springer on 12-27-2020 SARS-CoV-2 (COVID-19) RNA KALPESH+probe Ql (Unsp spec) Not detected Not Detected [employer] Work Phone: Comment on above: Rapid NAAT: [...] management decisions. Fact sheet for Healthcare Providers: https://www.fda.gov/media/193562/download Fact sheet for Patients: https://www.fda.gov/media/222583/download Methodology: Isothermal Nucleic Acid Amplification Specimen Description .NASOPHARYNGEAL SWAB [employer] Phone: [employer] Phone: Strep Screen Group A ThroatO rdered By: Wayne Springer on 12-27-2020 S. pyogenes Ag IA Ql (Unsp spec) Rapid Strep A negative. A negative Rapid Group A Strep Screen result does not rule out the possibility of Group A Streptococci in the specimen. A Group A Strep DNA test is available upon request. [employer] Phone: Special Requests NOT REPORTED [employer] Phone: Specimen Description .THROAT [employer] Phone: [employer] Phone: XR SHOULDER RIGHT (MIN 2 VIE WS)Ordered By: Anuj Quinn on 11-20-2020 No acute fracture or traumatic malalignment. [employer] Phone: EXAMINATION: XR SHOULDER RIGHT (MIN 2 VIEWS), , 11/20/2020 9:30 PM EDT INDICATION: Reason for exam:->shoulder pain HISTORY: Ordering Provider Reason for Exam: Technologist Note: Additional: COMPARISON: None. TECHNIQUE: Right shoulder x-ray: 3 view(s). FINDINGS: No acute fracture. Glenohumeral and acromioclavicular joints are anatomically aligned. Joint spaces are preserved. Soft tissues are unremarkable. [employer] Phone: Ward, [facility] Incoming Radiant Results From [employer] - 11/20/2020 9:55 PM EDT EXAMINATION: XR [...] IMPRESSION: No acute fracture or traumatic malalignment. [employer] Work Phone: [employer] Work Phone: COVID-19, MOLECULARon 2020 SARS-CoV-2 (COVID-19) RNA KALPESH+probe Ql (Unsp spec) Not detected Normal Not Detected [facility] Comment on above: Order Comment: : COV [...] at the following links: For Healthcare Providers: https://www.fda.gov/media/532806/download For Patients: https://www.fda.gov/media/931210/download Performed By: #### L [id number] #### [facility] [address] [place] [address] Joe Rider M.D. [id number] HbA1c (Bld) [Mass fraction]O rdered By: Zelda Bautista on 07-09-2020 Interpretation and review of laboratory results Normal [facility] POC Hemoglobin [id number] By : Zelda Bautista on 07-09-2020 HbA1c (Bld) [Mass fraction] 5.2 % 4.0 - 6.0 % [facility] HbA1c (Bld) [Mass fraction]O rdered By: Lelo Gallegos on 06-09-2020 Interpretation and review of laboratory results Normal [facility] POC Hemoglobin [id number] By : Lelo Gallegos on 06-09-2020 HbA1c (Bld) [Mass fraction] 5.6 % 4.0 - 6.0 % [facility] CBC Auto Differentialon 03-08 Basophils (Bld) [#/Vol] 0.00 10*3/uL [place] Basophils/100 WBC (Bld) 0 % 0 - 2 % [place] Differential Type YES [facility] [place] Eosinophils (Bld) [#/Vol] 0.10 10*3/uL [place] Eosinophils/100 WBC (Bld) 1 % 0 - 5 % [place] Erythrocyte distribution width (RBC) [Ratio] 14.2 % 12.1 - 15.2 % [place] Hematocrit (Bld) [Volume fraction] 36.1 % 36 - 46 % [place] Hemoglobin (Bld) [Mass/Vol] 12.5 g/dL 12 - 16 g/dL [place] Interpretation and review of laboratory results Abnormal [place] Lymphocytes (Bld) [#/Vol] 2.00 10*3/uL [place] Lymphocytes/100 WBC (Bld) 14 % Low 15 - 40 % [place] MCH (RBC) [Entitic mass] 30.6 pg 26 - 34 pg [place] MCHC (RBC) [Mass/Vol] 34.5 g/dL 31 - 3 7 g/dL [place] MCV (RBC) [Entitic vol] 88.5 fL 80 - 100 fL [place] Monocytes (Bld) [#/Vol] 0.80 10*3/uL [place] Monocytes/100 WBC (Bld) 6 % 4 - 8 % [place] Platelet mean volume (Bld) [Entitic vol] NOT REPORTED 6 - 12 fL [place], [place] Platelets (Bld) [#/Vol] 300 10*3/uL [place] Platelets (Bld) [#/Vol] NOT REPORTED [place] RBC (Bld) [#/Vol] 4.08 10*6/uL 4 - 5.2 m/uL [place] RBC morphology finding Nom (Bld) NOT REPORTED [place] Segmented neutrophils/100 WBC (Bld) 79 % High 47 - 75 % [place] Segs Absolute 10.70 [place] WBC (Bld) [#/Vol] 13.6 10*3/uL [place] WBC (Bld) [#/Vol] NOT REPORTED per 100 WBC [place] WBC Morphology NOT REPORTED [place] COVID-19, PCRon 03-26-2020 SARS-CoV-2, Rapid Not Detected Not Detected [place] Comment on above: Rapid NAAT: The [...] management decisions. Fact sheet for Healthcare Providers: https://www.fda.gov/media/118382/download Fact sheet for Patients: https://www.fda.gov/media/347931/download Methodology: Isothermal Nucleic Acid Amplification Source .THROAT [place] Comprehensive Metabolic Pane l w/ Reflex to MGon 03-26-2020 Albumin [Mass/Vol] 3.3 g/dL Low 3.5 - 5.2 g/dL [place] Albumin/Globulin [Mass ratio] NOT REPORTED [place] ALP [Catalytic activity/Vol] 57 U/L 35 - 104 U/L [place] ALT [Catalytic activity/Vol] U/L Low 5 - 33 U/L [place] Anion gap [Moles/Vol] 11 mmol/L 9 - 17 mmol/L [place] AST [Catalytic activity/Vol] 9 U/L <32 [place] Bilirubin Ql (U) 0.10 mg/dL Low 0.3 - 1.2 mg/dL [place] Bun/Cre Ratio 21 High [place], [place] Calcium [Mass/Vol] 10.2 mg/dL 8.6 - 10. 4 mg/dL [place] Chloride [Moles/Vol] 104 mmol/L 98 - 10 7 mmol/L [place] CO2 [Moles/Vol] 21 mmol/L 20 - 31 mmol/L [place] Creatinine [Mass/Vol] 0.42 mg/dL Low 0.5 - 0.9 mg/dL [place] GFR >60 >60 mL/min [place] GFR Non- >60 >60 mL/min [place] GFR/1.73 sq M predicted among non-blacks MDRD (S/P/Bld) [Vol rate/Area] NOT REPORTED [place] GFR/1.73 sq M predicted among non-blacks MDRD (S/P/Bld) [Vol rate/Area] [place] Comment on above: Average GFR for 30-3 9 years old: 107 mL/min/1.73sq m Chronic Kidney Disease: <60 mL/min/1.73sq m Kidney failure: <15 mL/min/1.73sq m eGFR calculated using average adult body mass. Additional eGFR calculator available at: http://www.[employer]/multiple_crcl_2012.htm Glucose [Mass/Vol] 100 mg/dL High 70 - 99 mg/dL [place] Interpretation and review of laboratory results Abnormal [place] Potassium [Moles/Vol] 3.8 mmol/L 3.7 - 5.3 mmol/L [place] Protein [Mass/Vol] 6.5 g/dL 6.4 - 8.3 g/dL [place] Sodium [Moles/Vol] 136 mmol/L 135 - 144 mmol/L [place] Urea nitrogen [Mass/Vol] 9 mg/dL 6 - 20 mg/dL [place] Otheron 03-26-2020 SARS-CoV-2 [place] Immature granulocytes (Bld) [#/Vol] NOT REPORTED [place] Urinalysis, reflex to micros copicon 03-26-2020 Bilirubin Urine Negative NEGATIVE [facility] [place] Color, UA YELLOW YELLOW [place] Glucose, Ur Negative NEGATIVE [place] Ketones Ql (U) Negative NEGATIVE [place] Leukocyte esterase Test strip Ql (U) Negative NEGATIVE [place] Nitrite, Urine Negative NEGATIVE [place] pH, UA 7.0 [place] Protein (U) [Mass/Vol] Negative NEGATIVE [place] Specific [place], UA 1.010 [place], [place] Turbidity UA CLEAR CLEAR [place] Urinalysis Comments [place] Urine Hgb Negative NEGATIVE [place] Urobilinogen, Urine Normal Normal [place] Wet Prep, Genitalon 11-20-19 Direct Exam MODERATE EPITHELIAL CELLS Abnormal [place] Direct Exam FEW TRICHOMONAS SEEN Abnormal [place] Direct Exam MODERATE BACTERIA Abnormal [place] Direct Exam Few epithelials coated with bacteria resembling clue cells. Abnormal [place] Direct Exam NO FUNGAL ELEMENTS SEEN [place] Interpretation and review of laboratory results Abnormal [place] Special Requests NOT REPORTED [place] Specimen Description .VAGINAL SPECIMEN [place] WBC (Bld) [#/Vol] FEW WBC SEEN Abnormal [place] Basic Metabolic Panelon 06-05 Anion gap [Moles/Vol] 15 mmol/L 10 - 2 0 mmol/L [facility] Calcium [Mass/Vol] 8.6 mg/dL 8.4 - 10. 2 mg/dL [facility] Chloride [Moles/Vol] 102 mmol/L 98 - 10 8 mmol/L [facility] Creatinine [Mass/Vol] 0.36 mg/dL Low 0.40 - 1.10 [facility] GFR/1.73 sq M predicted among non-blacks MDRD (S/P/Bld) [Vol rate/Area] The eGFR should be used for monitoring renal function only and not for medication dosing. [facility] GFR/1.73 sq M.predicted CKD-EPI (S/P/Bld) [Vol rate/Area] 146 >=60 mL/min/1.73 m2 [facility] Glucose [Mass/Vol] 102 mg/dL High 65 - 99 mg/dL [facility] HCO3 [Moles/Vol] 25 mmol/L 21 - 32 mmol/L [facility] Interpretation and review of laboratory results Abnormal [facility] Potassium [Moles/Vol] 4.1 mmol/L 3.5 - 5.1 mmol/L [facility] Sodium [Moles/Vol] 138 mmol/L 135 - 145 mmol/L [facility] Urea nitrogen [Mass/Vol] 5 mg/dL Low 8 - 25 mg/dL [facility] Urea nitrogen/Creatinine [Mass ratio] 13.9 mg/mg [facility] Hepatic Function Panelon Albumin [Mass/Vol] 3.3 g/dL 3.2 - 5.2 g/dL [facility] ALP [Catalytic activity/Vol] 253 U/L High 40 - 140 U/L [facility] ALT [Catalytic activity/Vol] 686 U/L High 0 - 40 U/L [facility] AST [Catalytic activity/Vol] 349 U/L High 0 - 45 U/L [facility] Bilirubin [Mass/Vol] 6.0 mg/dL High 0 - 1.3 mg/dL [facility] Bilirubin.conjugated [Mass/Vol] 5.1 mg/dL High 0 - 0.4 mg/dL [facility] Interpretation and review of laboratory results Abnormal [facility] Protein [Mass/Vol] 6.8 g/dL 6 - 8 g/dL [facility] Bilirubin, Directon 06-16-19 20 Bilirubin.conjugated [Mass/Vol] 5.4 mg/dL High 0 - 0.4 mg/dL [facility] Interpretation and review of laboratory results Abnormal [facility] CBCon 06-16-2019 Erythrocyte distribution width (RBC) [Entitic vol] 15.1 % High 11.6 - 14.8 % [facility] Hematocrit (Bld) [Volume fraction] 38.5 % 36 - 46 % [facility] Hemoglobin (Bld) [Mass/Vol] 12.9 g/dL 12 - 16 g/dL [facility] Interpretation and review of laboratory results Abnormal [facility] MCH (RBC) [Entitic mass] 29.1 pg 26 - 34 pg [facility] MCHC (RBC) [Mass/Vol] 33.5 g/dL 31 - 3 7 g/dL [facility] MCV (RBC) [Entitic vol] 86.9 fL 80 - 100 fL [facility] Nucleated RBC (Bld) [#/Vol] 0.00 10*3/uL [facility] Nucleated RBC/100 WBC (Bld) [Ratio] 0.0 % [facility] Platelet mean volume (Bld) [Entitic vol] 11.3 fL 9 - 15.5 fL [facility] Platelets (Bld) [#/Vol] 185 10*3/uL [facility] RBC (Bld) [#/Vol] 4.43 10*6/uL [facility] WBC (Bld) [#/Vol] 6.48 10*3/uL [facility] Comprehensive Metabolic Pane cayden 06-16-2019 Albumin [Mass/Vol] 3.3 g/dL 3.2 - 5.2 g/dL [facility] ALP [Catalytic activity/Vol] 217 U/L High 40 - 140 U/L [facility] ALT [Catalytic activity/Vol] 825 U/L High 0 - 40 U/L [facility] Anion gap [Moles/Vol] 14 mmol/L 10 - 2 0 mmol/L [facility] AST [Catalytic activity/Vol] 544 U/L High 0 - 45 U/L [facility] Bilirubin [Mass/Vol] 5.9 mg/dL High 0 - 1.3 mg/dL [facility] Calcium [Mass/Vol] 8.4 mg/dL 8.4 - 10. 2 mg/dL [facility] Chloride [Moles/Vol] 103 mmol/L 98 - 10 8 mmol/L [facility] Creatinine [Mass/Vol] 0.32 mg/dL Low 0.40 - 1.10 [facility] GFR/1.73 sq M predicted among non-blacks MDRD (S/P/Bld) [Vol rate/Area] The eGFR should be used for monitoring renal function only and not for medication dosing. [facility] GFR/1.73 sq M.predicted CKD-EPI (S/P/Bld) [Vol rate/Area] 152 >=60 mL/min/1.73 m2 [facility] Glucose [Mass/Vol] 92 mg/dL 65 - 99 mg/dL [facility] HCO3 [Moles/Vol] 26 mmol/L 21 - 32 mmol/L [facility] Interpretation and review of laboratory results Abnormal [facility] Potassium [Moles/Vol] 4.3 mmol/L 3.5 - 5.1 mmol/L [facility] Protein [Mass/Vol] 6.2 g/dL 6 - 8 g/dL [facility] Sodium [Moles/Vol] 139 mmol/L 135 - 145 mmol/L [facility] Urea nitrogen [Mass/Vol] 4 mg/dL Low 8 - 25 mg/dL [facility] Urea nitrogen/Creatinine [Mass ratio] 12.5 mg/mg [facility] Bilirubin, Directon 06-15-19 20 Bilirubin.conjugated [Mass/Vol] 4.7 mg/dL High 0 - 0.4 mg/dL [facility] Interpretation and review of laboratory results Abnormal [facility] CBCon 06-15-2019 Erythrocyte distribution width (RBC) [Entitic vol] 14.8 % 11.6 - 14.8 % [facility] Hematocrit (Bld) [Volume fraction] 38.5 % 36 - 46 % [facility] Hemoglobin (Bld) [Mass/Vol] 12.6 g/dL 12 - 16 g/dL [facility] MCH (RBC) [Entitic mass] 29.0 pg 26 - 34 pg [facility] MCHC (RBC) [Mass/Vol] 32.7 g/dL 31 - 3 7 g/dL [facility] MCV (RBC) [Entitic vol] 88.5 fL 80 - 100 fL [facility] Nucleated RBC (Bld) [#/Vol] 0.00 10*3/uL [facility] Nucleated RBC/100 WBC (Bld) [Ratio] 0.0 % [facility] Platelet mean volume (Bld) [Entitic vol] 11.0 fL 9 - 15.5 fL [facility] Platelets (Bld) [#/Vol] 155 10*3/uL [facility] RBC (Bld) [#/Vol] 4.35 10*6/uL [facility] WBC (Bld) [#/Vol] 5.74 10*3/uL [facility] Comprehensive Metabolic Pane cayden 06-15-2019 Albumin [Mass/Vol] 3.2 g/dL 3.2 - 5.2 g/dL [facility] ALP [Catalytic activity/Vol] 193 U/L High 40 - 140 U/L [facility] ALT [Catalytic activity/Vol] 888 U/L High 0 - 40 U/L [facility] Anion gap [Moles/Vol] 15 mmol/L 10 - 2 0 mmol/L [facility] AST [Catalytic activity/Vol] 667 U/L High 0 - 45 U/L [facility] Bilirubin [Mass/Vol] 5.2 mg/dL High 0 - 1.3 mg/dL [facility] Calcium [Mass/Vol] 8.2 mg/dL Low 8.4 - 10. 2 mg/dL [facility] Chloride [Moles/Vol] 103 mmol/L 98 - 10 8 mmol/L [facility] Creatinine [Mass/Vol] 0.36 mg/dL Low 0.40 - 1.10 [facility] GFR/1.73 sq M predicted among non-blacks MDRD (S/P/Bld) [Vol rate/Area] The eGFR should be used for monitoring renal function only and not for medication dosing. [facility] GFR/1.73 sq M.predicted CKD-EPI (S/P/Bld) [Vol rate/Area] 146 >=60 mL/min/1.73 m2 [facility] Glucose [Mass/Vol] 122 mg/dL High 65 - 99 mg/dL [facility] HCO3 [Moles/Vol] 22 mmol/L 21 - 32 mmol/L [facility] Interpretation and review of laboratory results Abnormal [facility] Potassium [Moles/Vol] 3.8 mmol/L 3.5 - 5.1 mmol/L [facility] Protein [Mass/Vol] 5.8 g/dL Low 6 - 8 g/dL [facility] Sodium [Moles/Vol] 136 mmol/L 135 - 145 mmol/L [facility] Urea nitrogen [Mass/Vol] 5 mg/dL Low 8 - 25 mg/dL [facility] Urea nitrogen/Creatinine [Mass ratio] 13.9 mg/mg [facility] [place] HEPATOBILIARY WO EJECTION FRACTIONon 06-15-2019 EXAMINATION: [...] tree, and small bowel are not visualized. [facility] Opacified liver with no visualization of the [...] regarding the presence or absence of cholecystitis. [employer] Workstation ID: [id number] [facility] Interface, Rad In [employer] - 06/15/2019 [...] regarding the presence or absence of cholecystitis. [employer] Work[employer] ID: [id number] [facility] APTTon 06-14-2019 aPTT Coag (Bld) [Time] 31.1 s [facility] [place] Comment on above: PTT Therapeutic Range: 61.7-88.4 Therapeutic range corresponds to plasma heparin levels of 0.3-0.7 U/mL. Acetaminophen Levelon 2019 Acetaminophen [Mass/Vol] 9.1 [facility] Interpretation and review of laboratory results Normal [facility] Bilirubin, Directon 06-14-19 20 Bilirubin.conjugated [Mass/Vol] 4.3 mg/dL High 0 - 0.4 mg/dL [facility] Interpretation and review of laboratory results Abnormal [facility] CBC WITH AUTO DIFFERENTIALon 06-14-2019 Erythrocyte distribution width (RBC) [Entitic vol] 14.5 % 11.6 - 14.8 % [facility] Hematocrit (Bld) [Volume fraction] 34.6 % Low 36 - 46 % [facility] Hemoglobin (Bld) [Mass/Vol] 11.6 g/dL Low 12 - 16 g/dL [facility] Interpretation and review of laboratory results Abnormal [facility] MCH (RBC) [Entitic mass] 29.7 pg 26 - 34 pg [facility] MCHC (RBC) [Mass/Vol] 33.5 g/dL 31 - 3 7 g/dL [facility] MCV (RBC) [Entitic vol] 88.5 fL 80 - 100 fL [facility] Nucleated RBC (Bld) [#/Vol] 0.00 10*3/uL [facility] Nucleated RBC/100 WBC (Bld) [Ratio] 0.0 % [facility] Platelet mean volume (Bld) [Entitic vol] 10.8 fL 9 - 15.5 fL [facility] Platelets (Bld) [#/Vol] 172 10*3/uL [facility] RBC (Bld) [#/Vol] 3.91 10*6/uL Low [facility] WBC (Bld) [#/Vol] 7.28 10*3/uL [facility] CT ABDOMEN PELVIS W IV CONTR AST Additional Contrast? Noneon 06-14-2019 Ward, [employer] Incoming Radiant Results From [employer] - 06/14/2019 12:27 AM EDT EXAMINATION: CT [...] liver function panel and consider ultrasound imaging. [place] Pericholecystic fluid versus gallbladder wall thickening and additional periportal edema. There are no visualized stones in the gallbladder gallbladder and/or hepatic pathology are suspected. Correlate with liver function panel and consider ultrasound imaging. [place] EXAMINATION: CT ABDOMEN PELVIS W IV [...] structures demonstrate no acute or concerning abnormality. [place] CT COMPARISON IMPORTon 06-13 This order has been auto-finalized and does not contain a result. [facility] Comprehensive Metabolic Pane cayden 06-14-2019 Albumin [Mass/Vol] 3.0 g/dL Low 3.2 - 5.2 g/dL [facility] ALP [Catalytic activity/Vol] 183 U/L High 40 - 140 U/L [facility] ALT [Catalytic activity/Vol] 808 U/L High 0 - 40 U/L [facility] Anion gap [Moles/Vol] 16 mmol/L 10 - 2 0 mmol/L [facility] AST [Catalytic activity/Vol] 592 U/L High 0 - 45 U/L [facility] Bilirubin [Mass/Vol] 4.9 mg/dL High 0 - 1.3 mg/dL [facility] Calcium [Mass/Vol] 8.4 mg/dL 8.4 - 10. 2 mg/dL [facility] Chloride [Moles/Vol] 104 mmol/L 98 - 10 8 mmol/L [facility] Creatinine [Mass/Vol] 0.43 mg/dL 0.40 - 1.10 [facility] GFR/1.73 sq M predicted among non-blacks MDRD (S/P/Bld) [Vol rate/Area] The eGFR should be used for monitoring renal function only and not for medication dosing. [facility] GFR/1.73 sq M.predicted CKD-EPI (S/P/Bld) [Vol rate/Area] 138 >=60 mL/min/1.73 m2 [facility] Glucose [Mass/Vol] 79 mg/dL 65 - 99 mg/dL [facility] HCO3 [Moles/Vol] 21 mmol/L 21 - 32 mmol/L [facility] Interpretation and review of laboratory results Abnormal [facility] Potassium [Moles/Vol] 3.8 mmol/L 3.5 - 5.1 mmol/L [facility] Protein [Mass/Vol] 5.7 g/dL Low 6 - 8 g/dL [facility] Sodium [Moles/Vol] 137 mmol/L 135 - 145 mmol/L [facility] Urea nitrogen [Mass/Vol] 9 mg/dL 8 - 25 mg/dL [facility] Urea nitrogen/Creatinine [Mass ratio] 20.9 mg/mg High [facility] DRUGS OF ABUSE SCREEN, URINE on 06-14-2019 Amphetamines Ql (U) None Detected None Detected [facility] Comment on above: Urine Amphetamine Cu toff: < 1000 ng/mL = None Detected Barbiturates Screen Ql (U) None Detected None Detected [facility] Comment on above: Urine Barbiturates C utoff: < 200 ng/mL = None Detected Benzodiazepines Ql (U) None Detected None Detected [facility] Comment on above: Urine Benzodiazepine Cutoff: < 300 ng/mL = None Detected Cannabinoids Screen Ql (U) None Detected None Detected [facility] Comment on above: Urine Cannabinoids C utoff: < 50 ng/mL = None Detected Cocaine Ql (U) Positive Abnormal None Detected [facility] Comment on above: Urine Cocaine Cutoff : < 300 ng/mL = None Detected Interpretation and review of laboratory results Abnormal [facility] Methadone Screen Ql (U) None Detected Non e Detected [facility] Comment on above: Urine Methadone Cuto ff: < 300 ng/mL = None Detected Opiates Screen Ql (U) None Detected None Detected [facility] Comment on above: Urine Opiates Cutoff : < 300 ng/mL = None Detected Oxycodone Ql (U) None Detected None Detected [facility] Comment on above: Urine Oxycodone Cuto ff: < 100 ng/mL = None Detected Screen results should be used for treatment purposes only. Specimen will be kept for 2 weeks, if the sample is adequate. Confirmation testing can be initiated by calling the lab within 2 weeks. [facility] HEPATITIS PANEL, ACUTEon HAV IgM Ql (S) Negative Negative [facility] HBV core IgM Ql (S) Negative Negative [facility] HBV surface Ag Ql (S) Negative Negative [facility] HCV Ab Ql (S) Positive Abnormal Negative [facility] Comment on above: A positive antibody test requires additional follow-up testing, Hepatitis C Virus Quantitation, to determine if a person is currently infected with Hepatitis C. Interpretation and review of laboratory results Abnormal [facility] Test performed using [employer] immunoassay system [facility] Lactic Acid, Plasmaon 2019 Interpretation and review of laboratory results Normal [facility] Lactate [Moles/Vol] 0.8 mmol/L 0.6 - 2 mmol/L [facility] MORPHOLOGYon 06-14-2019 Platelets LM Ql (Bld) Normal Normal [facility] RBC morphology finding Nom (Bld) Normal [facility] MRCPon 06-14-2019 EXAMINATION: MRCP 03/15/2024 HISTORY: ORDERING [...] Axial T1-weighted images were obtained in- and [id number]. Axial diffusion-weighted imaging was also performed. FINDINGS: The liver overall appears enlarged with the right hepatic lobe measuring 22.6 cm lvejgnhg-jy-vbtqbzw r. The spleen measures 14.6 cm onpudxrg-dk-dckefkk r and is also mildly enlarged. There [...] the right kidney. Bowel pattern is nonobstructive. [facility] 1. Re-demonstration of diffuse periportal edema as well as significant circumferential gallbladder wall edema similar to that seen on prior CT study. 2. Mild hepatosplenomegaly. 3. No obvious gallstones. Negative for biliary or pancreatic ductal dilatation. Negative for choledocholithiasis . 4. Trace volume of abdominal ascites. [employer] Workstation ID: [id number] [facility] Interface, Rad In [employer] - 06/14/2019 4:45 PM EDT EXAMINATION: [...] Axial T1-weighted images were obtained in- and baz-[id number]. Axial diffusion-weighted imaging was also performed. FINDINGS: The liver overall appears enlarged with the right hepatic lobe measuring 22.6 cm janvkuyo-sn-rqpeufk r. The spleen measures 14.6 cm aosdzzbn-on-hgjdnyp r and is also mildly enlarged. There [...] . 4. Trace volume of abdominal ascites. [employer] Workstation ID: [id number] [facility] Manual Differentialon 2019 Basophils (Bld) [#/Vol] 0.00 10*3/uL [facility] Basophils/100 WBC (Bld) 0.0 % [facility] Eosinophils (Bld) [#/Vol] 0.00 10*3/uL [facility] Eosinophils/100 WBC (Bld) 0.0 % [facility] Lymphocytes (Bld) [#/Vol] 3.28 10*3/uL [facility] Lymphocytes/100 WBC (Bld) 37.0 % [facility] Monocytes (Bld) [#/Vol] 0.44 10*3/uL [facility] Monocytes/100 WBC (Bld) 6.0 % [facility] Neutrophils (Bld) [#/Vol] 3.57 10*3/uL [facility] Neutrophils/100 WBC (Bld) 49.0 % [facility] Variant lymphocytes/100 WBC (Bld) 8.0 % [facility] PT/INRon 06-14-2019 INR Coag (PPP) [Relative time] 1.3 {INR} [facility] Interpretation and review of laboratory results Abnormal [facility] PT Coag (PPP) [Time] 15.5 s [facility] During the induction phase of oral anticoagulation, the INR may not reflect the anticoagulation status of the patient. Therapeutic ranges for INR's are: Most clinical situations: INR 2.0-3.0 Mechanical Prosthetic Valve: INR 2.5-3.5 Critical: INR >5.0 [facility] Protime-INRon 06-14-2019 INR Coag (PPP) [Relative time] 1.2 {INR} [place] Comment on above: * THERAPY INDICATIONS * REFERENCE RANGES Pts not on anti-coagulants 1.0 - 1.5 INR Low risk pts on anti-coagulants 2.0 - 3.0 INR High risk pts on anti-coagulants 2.5 - 3.5 INR Prevention of atrial thrombo-embolism 3.0 - 4.5 INR Interpretation and review of laboratory results Abnormal [facility], [place] PT Coag (PPP) [Time] 11.7 s [place] Salicylate Levelon 0 Interpretation and review of laboratory results Abnormal [facility] Salicylates [Mass/Vol] mg/dL Low 10 - 20 mg/dL [facility] URINALYSISon 06-14-2019 Bacteria Auto Ql (U) Rare Abnormal None Se en /hpf [facility] Bilirubin Ql (U) Positive Abnormal Negative [facility] th Comment on above: False positive urine bilirubins can occur in the setting of a large amount of hemoglobin and secondary to medications including anti-inflammatory agents, rifampin, and pyridium. Clarity Refractometry automated (U) Clear Clear [facility] Color (U) Erica Abnormal Colorless, Yellow [facility] Epithelial cells.squamous Auto (Urine sed) [#/Area] 4 [facility] Glucose Auto test strip (U) [Mass/Vol] Negative Negative mg/dL [facility] Hemoglobin Auto test strip Ql (U) Negative Negative [facility] Interpretation and review of laboratory results Abnormal [facility] Ketones (U) [Mass/Vol] >=80 Abnormal Negat krystal mg/dL [facility] Leukocyte esterase Auto test strip Ql (U) Negative Negative [facility] Mucus Auto (Urine sed) [#/Area] Rare None Seen, Rare /lpf [facility] Nitrite Auto test strip Ql (U) Negative Negative [facility] pH (U) 6.0 [pH] [facility] Protein (U) [Mass/Vol] 30 Abnormal Negat krystal mg/dL [facility] Comment on above: False positive resul ts may occur in urines with large amounts of hemoglobin, pH greater than 8.0, contrast medium, or disinfectants including ammonium compounds. RBC Auto (Urine sed) [#/Area] 2 [facility] Specific gravity (U) [Rel density] 1.028 High [facility] Urobilinogen (U) [Mass/Vol] >=4.0 Abnormal <2.0 mg/dL [facility] WBC Auto (Urine sed) [#/Area] 2 [facility] Microscopic examination is performed on all urinalysis samples and only positive findings are reported. The test for blood on the chemical analytic portion of urinalysis may also be positive due to hemoglobinuria and myoglobinuria and if red blood cells are present they are quantified by microscopic examination. [facility] US ABDOMEN LIMITED STUDYon 0 06-14-2019 Interface, [...] liver likely small hemangioma. Workstation ID: [id number] [employer] EXAMINATION: US ABDOMEN LIMITED STUDY HISTORY: RUQ [...] measures 10.7 cm in length. No hydronephrosis. [facility] 1. Contracted gallbladder limits evaluation. No cholelithiasis identified. Nonspecific edematous gallbladder wall thickening and reported positive sonographic Short's sign, cannot exclude acalculus cholecystitis. No biliary ductal dilatation. 2. 1.3 cm echogenic lesion left lobe of the liver likely small hemangioma. Workstation ID: [id number] [employer] Amylaseon 06-13-2019 Amylase [Catalytic activity/Vol] 22 U/L Low 28 - 100 U/L [place] CBC Auto Differentialon Basophils (Bld) [#/Vol] 0.00 10*3/uL [place] Basophils/100 WBC (Bld) 1 % 0 - 2 % [place] Differential Type YES [facility] [place] Eosinophils (Bld) [#/Vol] 0.00 10*3/uL [place] Eosinophils/100 WBC (Bld) 0 % 0 - 5 % [place] Erythrocyte distribution width (RBC) [Ratio] 14.9 % 12.1 - 15.2 % [place] Hematocrit (Bld) [Volume fraction] 43.3 % 36 - 46 % [place] Hemoglobin (Bld) [Mass/Vol] 14.3 g/dL 12 - 16 g/dL [place] Lymphocytes (Bld) [#/Vol] 2.50 10*3/uL [place] Lymphocytes/100 WBC (Bld) 30 % 15 - 40 % [place] MCH (RBC) [Entitic mass] 28.8 pg 26 - 34 pg [place] MCHC (RBC) [Mass/Vol] 33.1 g/dL 31 - 3 7 g/dL [place] MCV (RBC) [Entitic vol] 87.2 fL 80 - 100 fL [place] Monocytes (Bld) [#/Vol] 0.70 10*3/uL [place] Monocytes/100 WBC (Bld) 8 % 4 - 8 % [place] Platelet mean volume (Bld) [Entitic vol] NOT REPORTED 6 - 12 fL [place] Platelets (Bld) [#/Vol] 203 10*3/uL [place] Platelets (Bld) [#/Vol] NOT REPORTED [place] RBC (Bld) [#/Vol] 4.97 10*6/uL 4 - 5.2 m/uL [place] RBC morphology finding Nom (Bld) NOT REPORTED [place] Segmented neutrophils/100 WBC (Bld) 61 % 47 - 75 % [place] Segs Absolute 5.20 [place] WBC (Bld) [#/Vol] 8.4 10*3/uL [place] WBC (Bld) [#/Vol] NOT REPORTED per 100 WBC [place] WBC Morphology NOT REPORTED [place] Comprehensive Metabolic Pane l w/ Reflex to MGon 06-13-2019 Albumin [Mass/Vol] 4.1 g/dL 3.5 - 5.2 g/dL [place] Albumin/Globulin [Mass ratio] NOT REPORTED [place] ALP [Catalytic activity/Vol] 255 U/L High 35 - 104 U/L [place] ALT [Catalytic activity/Vol] 1116 U/L [place] 5 - 33 U/L [place] Anion gap [Moles/Vol] 17 mmol/L 9 - 17 mmol/L [place] AST [Catalytic activity/Vol] 665 U/L High <32 [place] Bilirubin Ql (U) 6.52 mg/dL High 0.3 - 1.2 mg/dL [place] Bun/Cre Ratio 17 [place] Calcium [Mass/Vol] 10.1 mg/dL 8.6 - 10. 4 mg/dL [place] Chloride [Moles/Vol] 95 mmol/L Low 98 - 10 7 mmol/L [place] CO2 [Moles/Vol] 24 mmol/L 20 - 31 mmol/L [place] Creatinine [Mass/Vol] 0.82 mg/dL 0.5 - 0.9 mg/dL [place] GFR >60 >60 mL/min [place] GFR Non- >60 >60 mL/min [place] GFR/1.73 sq M predicted among non-blacks MDRD (S/P/Bld) [Vol rate/Area] [place] Comment on above: Average GFR for 20-2 9 years old: 116 mL/min/1.73sq m Chronic Kidney Disease: <60 mL/min/1.73sq m Kidney failure: <15 mL/min/1.73sq m eGFR calculated using average adult body mass. Additional eGFR calculator available at: http://www.[employer]/multiple_crcl_2012.htm GFR/1.73 sq M predicted among non-blacks MDRD (S/P/Bld) [Vol rate/Area] NOT REPORTED [place] Glucose [Mass/Vol] 134 mg/dL High 70 - 99 mg/dL [place] Interpretation and review of laboratory results Abnormal [place] Potassium [Moles/Vol] 3.7 mmol/L 3.7 - 5.3 mmol/L [place] Protein [Mass/Vol] 8.1 g/dL 6.4 - 8.3 g/dL [place] Sodium [Moles/Vol] 136 mmol/L 135 - 144 mmol/L [place] Urea nitrogen [Mass/Vol] 14 mg/dL 6 - 20 mg/dL [place] Drug screen multi urineon Amphetamine Screen, Ur Negative NEGATIVE [place] Comment on above: (Positive cutoff 500 ng/mL) Barbiturate Screen, Ur Negative NEGATIVE [place] Comment on above: (Positive cutoff 200 ng/mL) Benzodiazepine Screen, Urine Negative NEGATIVE [place] Comment on above: (Positive cutoff 150 ng/mL) Buprenorphine Urine NOT REPORTED NEGATIVE [place] Cannabinoid Scrn, Ur Negative NEGATIVE [place] Comment on above: (Positive cutoff 50 ng/mL) Cocaine Metabolite, Urine Positive Abnormal NEGATIVE [place] Comment on above: (Positive cutoff 150 ng/mL) Interpretation and review of laboratory results Abnormal [place] MDMA, Urine NOT REPORTED NEGATIVE [place] Methadone Screen, Urine Negative NEGATIVE [place] Comment on above: (Positive cutoff 200 ng/mL) Methamphetamine, Urine Negative NEGATIVE [place] Comment on above: (Positive cutoff 500 ng/mL) Opiates, Urine Positive Abnormal NEGATIVE [place] Comment on above: (Positive cutoff 100 ng/mL) Oxycodone Screen, Ur Negative NEGATIVE [place] Comment on above: (Positive cutoff 100 ng/mL) Phencyclidine, Urine Negative NEGATIVE [place] Comment on above: (Positive cutoff 25 ng/mL) Propoxyphene, Urine Negative NEGATIVE [place] Comment on above: (Positive cutoff 300 ng/mL) Test Information NOT REPORTED [place] Tricyclic Antidepressants, Urine Negative NEGATIVE [place] Comment on above: (Positive cutoff 300 ng/mL) Drug screen results are to be used for medical purposes only. All positive results are unconfirmed. Testing for employment or legal uses should be sent to a reference laboratory for confirmation. Lactic Acidon 06-13-2019 Lactate [Moles/Vol] 1.2 mmol/L 0.5 - 2. 2 mmol/L [place] Lipaseon 06-13-2019 Lipase [Catalytic activity/Vol] 8 U/L Low 13 - 60 U/L [place] Microscopic Urinalysison Amorphous, UA NOT REPORTED None [place] Bacteria, UA 2+ Abnormal None [place] Casts UA 5 TO 10 HYALINE /LPF [place] Casts UA 2 TO 5 WAXY /LPF [place] Crystals, UA NOT REPORTED None /HPF [place] Epithelial Cells UA LOADED /HPF [place] Interpretation and review of laboratory results Abnormal [place] Mucus, UA 4+ Abnormal None [place] Other Observations UA NOT REPORTED NOT REQ. [place] RBC (U) [#/Vol] 5 TO 10 [place] Renal Epithelial, UA NOT REPORTED 0 /HPF [place] Trichomonas, UA NOT REPORTED None [place] WBC, UA 10 TO 20 0 /HPF [place] Yeast, UA NOT REPORTED None [place] - [place] Otheron 06-13-2019 Interpretation and review of laboratory results Abnormal [place] Immature granulocytes (Bld) [#/Vol] NOT REPORTED 0 % [place] , Urineon 0 Beta HCG ( test) Ql (U) Negative NEGATIVE [place] Urinalysis, reflex to micros copicon 06-13-2019 Bilirubin Urine 3+ Abnormal NEGATIVE [place] Color, UA BROWN Abnormal YELLOW [place] Glucose, Ur Negative NEGATIVE [place] Interpretation and review of laboratory results Abnormal [place] Ketones Ql (U) MODERATE Abnormal NEGATIVE [place] Leukocyte esterase Test strip Ql (U) 1+ Abnormal NEGATIVE [place] Nitrite, Urine Positive Abnormal NEGATIVE [place] pH, UA 5.0 [place] Protein (U) [Mass/Vol] 1+ Abnormal NEGATIVE [place] Specific [place], UA 1.020 [place] Turbidity UA CLEAR CLEAR [place] Urinalysis Comments [place] Urine Hgb TRACE Abnormal NEGATIVE [place] Urobilinogen, Urine 12 mg/dL Abnormal Normal [place] Vital Signs Date Time Vital Sign Value Performing Clinician Facility 10-05-2023 21:00-0400 Body temperature 99.61 [degF] Violet Juarez MD Work Phone: [facility] 10-05-2023 21:00-0400 Diastolic blood pressure 68 mm[Hg] Violet Juarez MD Work Phone: [facility] 10-05-2023 21:00-0400 Heart rate 93 /min Violet Juarez MD Work Phone: [facility] 10-05-2023 21:00-0400 Respiratory rate 16 /min Violet Juarez MD Work Phone: [facility] 10-05-2023 21:00-0400 SaO2% (BldA) [Mass fraction] 97 % Violet Juarez MD Work Phone: [facility] 10-05-2023 21:00-0400 Systolic blood pressure 114 mm[Hg] Violet Juarez MD Work Phone: [facility] 05-13-2023 11:27-0500 Body temperature 98.6 [degF] Jonathan Martinez [facility] 05-13-2023 11:27-0500 Diastolic blood pressure 78 mm[Hg] Jonathan Martinez [facility] 05-13-2023 11:27-0500 Heart rate 83 /min Jonathan Martinez [facility] 05-13-2023 11:27-0500 Respiratory rate 18 /min Jonathan Martinez [facility] 05-13-2023 11:27-0500 SaO2% (BldA) [Mass fraction] 97 % Jonathan Martinez [facility] 05-13-2023 11:27-0500 Systolic blood pressure 113 mm[Hg] Jonathan Martinez [facility] 05-11-2023 21:49-0500 Body temperature 98.06 [degF] [facility] 05-11-2023 21:49-0500 Diastolic blood pressure 84 mm[Hg] [facility] 05-11-2023 21:49-0500 Heart rate 105 /min [facility] 05-11-2023 21:49-0500 Respiratory rate 17 /min [facility] 05-11-2023 21:49-0500 SaO2% (BldA) [Mass fraction] 97 % [facility] 05-11-2023 21:49-0500 Systolic blood pressure 130 mm[Hg] [facility] 05-10-2023 11:41-0500 Body height 160 cm Chet Berumen DO Work Phone: [facility] [employer] 05-10-2023 11:41-0500 Body mass index (BMI) [Ratio] 44.29 kg/m2 Chet Berumen Work Phone: [facility] [employer] [facility] 05-10-2023 11:41-0500 Body temperature 97.9 [degF] Chet Berumen Work Phone: [facility] [employer] [facility] 05-10-2023 11:41-0500 Body weight 113.4 kg Chet Berumen DO Work Phone: [facility] 05-10-2023 11:41-0500 Diastolic blood pressure 76 mm[Hg] Chet Berumen Work Phone: [facility] 05-10-2023 11:41-0500 Heart rate 94 /min Chet Berumen Work Phone: [facility] 05-10-2023 11:41-0500 Respiratory rate 18 /min Chet Lachelle STEWART Work Phone: [facility] 05-10-2023 11:41-0500 SaO2% (BldA) [Mass fraction] 96 % Chet Berumen DO Work Phone: [facility] 05-10-2023 11:41-0500 Systolic blood pressure 146 mm[Hg] Chet Lachelle STEWART Work Phone: [facility] 09-04-2022 11:27-0400 Body height 160 cm Erin Lacy MD Work Phone: [employer] 09-04-2022 11:27-0400 Body mass index (BMI) [Ratio] 44.99 kg/m2 Erin Lacy MD Work Phone: [employer] 09-04-2022 11:27-0400 Body temperature 98.2 [degF] Erin Lacy MD Work Phone: [employer] 09-04-2022 11:27-0400 Body weight 115.21 kg Erin Lacy MD Work Phone: [employer] 09-04-2022 11:27-0400 Diastolic blood pressure 71 mm[Hg] Erin Lacy MD Work Phone: [employer] 09-04-2022 11:27-0400 Heart rate 88 /min Erin Lacy MD Work Phone: [employer] 09-04-2022 11:27-0400 Respiratory rate 18 /min Erin Lacy MD Work Phone: [employer] 09-04-2022 11:27-0400 SaO2% (BldA) [Mass fraction] 97 % Erin Lacy MD Work Phone: [employer] 09-04-2022 11:27-0400 Systolic blood pressure 124 mm[Hg] Erin Lacy MD Work Phone: [employer] 06-29-2022 09:49-0400 Diastolic blood pressure 57 mm[Hg] Todd Bing [facility] 06-29-2022 09:49-0400 Heart rate 73 /min Todd Bing [facility] 06-29-2022 09:49-0400 Mean blood pressure 76 mm[Hg] Todd Bing [facility] 06-29-2022 09:49-0400 Respiratory rate 16 /min Todd Bing [facility] 06-29-2022 09:49-0400 Systolic blood pressure 113 mm[Hg] Todd Bing [facility] 05-19-2022 19:28-0400 Body height 160 cm Erin Lacy MD Work Phone: [employer] 05-19-2022 19:28-0400 Body mass index (BMI) [Ratio] 45.17 kg/m2 Erin Lacy MD Work Phone: [employer] 05-19-2022 19:28-0400 Body weight 115.67 kg Erin Lacy MD Work Phone: [employer] 05-19-2022 19:25-0400 Body temperature 98.29 [degF] Erin Lacy MD Work Phone: [employer] 05-19-2022 19:25-0400 Diastolic blood pressure 68 mm[Hg] Erin Lacy MD Work Phone: [employer] 05-19-2022 19:25-0400 Heart rate 78 /min Erin Lacy MD Work Phone: [employer] 05-19-2022 19:25-0400 Respiratory rate 16 /min Erin Lacy MD Work Phone: [employer] 05-19-2022 19:25-0400 SaO2% (BldA) [Mass fraction] 98 % Erin Lacy MD Work Phone: [employer] 05-19-2022 19:25-0400 Systolic blood pressure 110 mm[Hg] Erin Lacy MD Work Phone: [employer] 05-11-2022 19:17-0500 Body height 160 cm Anuj Quinn MD Work Phone: [employer] 05-11-2022 19:17-0500 Body mass index (BMI) [Ratio] 45.06 kg/m2 Anuj Quinn MD Work Phone: [employer] 05-11-2022 19:17-0500 Body temperature 98.01 [degF] Anuj Quinn MD Work Phone: [employer] 05-11-2022 19:17-0500 Body weight 115.39 kg Anuj Quinn MD Work Phone: [employer] 05-11-2022 19:17-0500 Diastolic blood pressure 91 mm[Hg] Anuj Quinn MD Work Phone: [employer] 05-11-2022 19:17-0500 Heart rate 78 /min Anuj Quinn MD Work Phone: [employer] 05-11-2022 19:17-0500 Respiratory rate 18 /min Anuj Quinn MD Work Phone: [employer] 05-11-2022 19:17-0500 SaO2% (BldA) [Mass fraction] 96 % Anuj Quinn MD Work Phone: [employer] 05-11-2022 19:17-0500 Systolic blood pressure 121 mm[Hg] Anuj Quinn MD Work Phone: [employer] 10-12-2021 18:31-0400 Heart rate 93 /min Rishabh Mancini MD Work Phone: [employer] 10-12-2021 18:31-0400 Respiratory rate 16 /min Rishabh Mancini MD Work Phone: [employer] 10-12-2021 18:31-0400 SaO2% (BldA) [Mass fraction] 97 % Rishabh Mancini MD Work Phone: [employer] 10-12-2021 18:12-0400 Body height 160 cm Rishabh Mancini MD Work Phone: [employer] 10-12-2021 18:12-0400 Body mass index (BMI) [Ratio] 47.12 kg/m2 Rishabh Mancini MD Work Phone: [employer] 10-12-2021 18:12-0400 Body temperature 99.19 [degF] Rishabh Mancini MD Work Phone: [employer] 10-12-2021 18:12-0400 Body weight 120.66 kg Rishabh Mancini MD Work Phone: [employer] 10-12-2021 18:12-0400 Diastolic blood pressure 77 mm[Hg] Rishabh Mancini MD Work Phone: [facility] [employer] 10-12-2021 18:12-0400 Systolic blood pressure 126 mm[Hg] Rishabh Mancini MD Work Phone: [facility] [employer] 07-22-2021 10:38-0400 Body height 160 cm Clark [facility]oser MD [facility]: [facility] 07-22-2021 10:38-0400 Body mass index (BMI) [Ratio] 47.63 kg/m2 Clark Moser MD Work Phone: [facility] 07-22-2021 10:38-0400 Body temperature 97.3 [degF] Clark Moser MD Work Phone: [facility] 07-22-2021 10:38-0400 Body weight 121.97 kg Clark Moser MD [facility] Phone: [facility] 07-22-2021 10:38-0400 Diastolic blood pressure 88 mm[Hg] Clark Moser MD Work Phone: [facility] 07-22-2021 10:38-0400 Heart rate 104 /min Clark Moser MD Work Phone: [facility] 07-22-2021 10:38-0400 Respiratory rate 18 /min Clark Moser MD Work Phone: [facility] 07-22-2021 10:38-0400 SaO2% (BldA) [Mass fraction] 95 % Clark Moser MD Work Phone: [facility] 07-22-2021 10:38-0400 Systolic blood pressure 126 mm[Hg] Clark Moser MD Work Phone: [facility] 05-15-2021 09:11-0500 Body height [address] [facility] 05-14-2021 10:41-0500 Body height 160 cm Farhat Vang MD Work Phone: [facility] 05-14-2021 10:41-0500 Body mass index (BMI) [Ratio] 44.96 kg/m2 Farhat Vang MD Work Phone: [facility] 05-14-2021 10:41-0500 Body temperature 97.81 [degF] Farhat Vang MD Work Phone: [facility] 05-14-2021 10:41-0500 Body weight 115.12 kg Farhat Vang MD Work Phone: [facility] 05-14-2021 10:41-0500 Diastolic blood pressure 78 mm[Hg] Farhat Vang MD Work Phone: [facility] 05-14-2021 10:41-0500 Heart rate 98 /min Farhat Vang MD Work Phone: [facility] 05-14-2021 10:41-0500 Respiratory rate 18 /min Farhat Vang MD Work Phone: [facility] 05-14-2021 10:41-0500 SaO2% (BldA) [Mass fraction] 97 % Farhat Vang MD Work Phone: [facility] 05-14-2021 10:41-0500 Systolic blood pressure 124 mm[Hg] Farhat Vang MD Work Phone: [facility] 04-16-2021 10:15-0500 Body height 160 cm Farhat Vang MD Work Phone: [facility] 04-16-2021 10:15-0500 Body mass index (BMI) [Ratio] 44.44 kg/m2 Farhat Vang MD Work Phone: [facility] 04-16-2021 10:15-0500 Body temperature 98.01 [degF] Farhat Vang MD Work Phone: [facility] 04-16-2021 10:15-0500 Body weight 113.81 kg Farhat Vang MD Work Phone: [facility] 04-16-2021 10:15-0500 Diastolic blood pressure 78 mm[Hg] Farhat Vang MD Work Phone: [facility] 04-16-2021 10:15-0500 Heart rate 100 /min Fahrat Vang MD Work Phone: [facility] 04-16-2021 10:15-0500 Respiratory rate 18 /min Faraht Vang MD Work Phone: [facility] 04-16-2021 10:15-0500 SaO2% (BldA) [Mass fraction] 96 % Farhat Vang MD Work Phone: [facility] 04-16-2021 10:15-0500 Systolic blood pressure 122 mm[Hg] Farhat Vang MD Work Phone: [facility] 03-23-2021 12:40-0500 Body height 160 cm Anuj Quinn MD Work Phone: [facility] [employer] 03-23-2021 12:40-0500 Body mass index (BMI) [Ratio] 44.46 kg/m2 Anuj Quinn MD Work Phone: [facility] [employer] 03-23-2021 12:40-0500 Body temperature 99.7 [degF] Anuj Quinn MD Work Phone: [employer] 03-23-2021 12:40-0500 Body weight 113.85 kg Anuj Quinn MD Work Phone: [facility] [employer] 03-23-2021 12:40-0500 Diastolic blood pressure 74 mm[Hg] Anuj Quinn MD Work Phone: [employer] 03-23-2021 12:40-0500 Heart rate 107 /min Anuj Quinn MD Work Phone: [employer] 03-23-2021 12:40-0500 Respiratory rate 16 /min Anuj Quinn MD Work Phone: [employer] 03-23-2021 12:40-0500 SaO2% (BldA) [Mass fraction] 96 % Anuj Quinn MD Work Phone: [employer] 03-23-2021 12:40-0500 Systolic blood pressure 131 mm[Hg] Anuj Quinn MD Work Phone: [employer] 01-15-2021 10:43-0500 Body height 160 cm Holland Ann MD Work Phone: [facility] 01-15-2021 10:43-0500 Body mass index (BMI) [Ratio] 42.55 kg/m2 Holland Ann MD Work Phone: [facility] 01-15-2021 10:43-0500 Body temperature 97.39 [degF] Holland Ann MD Work Phone: [facility] [facility] 01-15-2021 10:43-0500 Body weight 108.95 kg Holland Ann MD Work Phone: [facility] 01-15-2021 10:43-0500 Diastolic blood pressure 66 mm[Hg] Holland Ann MD Work Phone: [facility] 01-15-2021 10:43-0500 Heart rate 101 /min Holland Ann MD Work Phone: [facility] 01-15-2021 10:43-0500 SaO2% (BldA) [Mass fraction] 96 % Holland Ann MD Work Phone: [facility] 01-15-2021 10:43-0500 Systolic blood pressure 112 mm[Hg] Holland Ann MD Work Phone: [facility] 12-27-2020 18:15-0400 Body temperature 98.49 [degF] Wayne Springer MD Work Phone: [employer] Work Phone: 12-27-2020 18:15-0400 Diastolic blood pressure 77 mm[Hg] Wayne Springer MD Work Phone: [employer] Work Phone: Comment on above: Simultaneous filing. User may not have s een previous data. 12-27-2020 18:15-0400 Heart rate 98 /min Wayne Springer MD Work Phone: [employer] Work Phone: 12-27-2020 18:15-0400 Respiratory rate 20 /min Wayne Springer MD Work Phone: [employer] Work Phone: 12-27-2020 18:15-0400 SaO2% (BldA) [Mass fraction] 95 % Wayne Springer MD Work Phone: [employer] Work Phone: Comment on above: Simultaneous filing. User may not have s een previous data. 12-27-2020 18:15-0400 Systolic blood pressure 107 mm[Hg] Wayne Springer MD Work Phone: [employer] Work Phone: Comment on above: Simultaneous filing. User may not have s een previous data. 11-20-2020 21:07-0400 Body height 160 cm Anuj Quinn MD Work Phone: [employer] Work Phone: 11-20-2020 21:07-0400 Body mass index (BMI) [Ratio] 38.62 kg/m2 Anuj Quinn MD Work Phone: [employer] Work Phone: 11-20-2020 21:07-0400 Body temperature 98.6 [degF] Anuj Quinn MD Work Phone: [employer] Work Phone: 11-20-2020 21:07-0400 Body weight 98.88 kg Anuj Quinn MD Work Phone: [employer] Work Phone: 11-20-2020 21:07-0400 Diastolic blood pressure 65 mm[Hg] Anuj Quinn MD Work Phone: [employer] Work Phone: 11-20-2020 21:07-0400 Heart rate 84 /min Anuj Quinn MD Work Phone: [employer] Work Phone: 11-20-2020 21:07-0400 Respiratory rate 16 /min Anuj Quinn MD Work Phone: [employer] Work Phone: 11-20-2020 21:07-0400 SaO2% (BldA) [Mass fraction] 97 % Anuj Quinn MD Work Phone: [employer] Work Phone: 11-20-2020 21:07-0400 Systolic blood pressure 113 mm[Hg] Anuj Quinn MD Work Phone: [employer] Work Phone: 11-07-2020 16:28-0400 Body height 160 cm Nicholas Roger MD Work Phone: [employer] Work Phone: 11-07-2020 16:28-0400 Body mass index (BMI) [Ratio] 38.26 kg/m2 Nicholas Roger MD Work Phone: [employer] Work Phone: 11-07-2020 16:28-0400 Body temperature 98.8 [degF] Nicholas Roger MD Work Phone: [employer] Work Phone: 11-07-2020 16:28-0400 Body weight 97.98 kg Nicholas Roger MD Work Phone: [employer] Work Phone: 11-07-2020 16:28-0400 Diastolic blood pressure 71 mm[Hg] Nicholas Roger MD Work Phone: [employer] Work Phone: 11-07-2020 16:28-0400 Heart rate 98 /min Nicholas Roger MD Work Phone: [employer] Work Phone: 11-07-2020 16:28-0400 Respiratory rate 18 /min Nicholas Roger MD Work Phone: [employer] Work Phone: 11-07-2020 16:28-0400 SaO2% (BldA) [Mass fraction] 94 % Nicholas Roger MD Work Phone: [employer] Work Phone: 11-07-2020 16:28-0400 Systolic blood pressure 120 mm[Hg] Nicholas Roger MD Work Phone: [employer] Work Phone: 07-09-2020 10:52-0400 Body height 160 cm Zelda Bautista CNP Work Phone: [facility] 07-09-2020 10:52-0400 Body mass index (BMI) [Ratio] 41.27 kg/m2 Zelda Bautista CNP Work Phone: [facility] 07-09-2020 10:52-0400 Body weight 105.69 kg Zelda Bautista CNP Work Phone: [facility] 07-09-2020 10:52-0400 Diastolic blood pressure 70 mm[Hg] Zelda Bautista CNP Work Phone: [facility] 07-09-2020 10:52-0400 Heart rate 97 /min Zelda Bautista CNP Work Phone: [facility] 07-09-2020 10:52-0400 Systolic blood pressure 101 mm[Hg] Zelda Bautista CNP Work Phone: [facility] 06-24-2020 09:48-0400 Body mass index (BMI) [Ratio] 40.92 kg/m2 Anuj Quinn MD Work Phone: [employer] Work Phone: 06-24-2020 09:48-0400 Body temperature 97.9 [degF] Anuj Quinn MD Work Phone: [employer] Work Phone: 06-24-2020 09:48-0400 Body weight 104.78 kg Anuj Quinn MD Work Phone: [employer] Work Phone: 06-24-2020 09:48-0400 Diastolic blood pressure 64 mm[Hg] Anuj Quinn MD Work Phone: [employer] Work Phone: 06-24-2020 09:48-0400 Heart rate 120 /min Anuj Quinn MD Work Phone: [employer] Work Phone: 06-24-2020 09:48-0400 Respiratory rate 18 /min Anuj Quinn MD Work Phone: [employer] Work Phone: 06-24-2020 09:48-0400 SaO2% (BldA) [Mass fraction] 100 % Anuj Quinn MD Work Phone: [employer] Work Phone: 06-24-2020 09:48-0400 Systolic blood pressure 115 mm[Hg] Anuj Quinn MD Work Phone: [employer] Work Phone: 06-09-2020 10:44-0400 Body height 160 cm Lelo Gallegos MD Work Phone: [facility] 06-09-2020 10:44-0400 Body mass index (BMI) [Ratio] 41.27 kg/m2 Lelo Gallegos MD Work Phone: [facility] 06-09-2020 10:44-0400 Body weight 105.69 kg Lelo Gallegos MD Work Phone: [facility] 06-09-2020 10:44-0400 Diastolic blood pressure 75 mm[Hg] Lelo Gallegos MD Work Phone: [facility] 06-09-2020 10:44-0400 Heart rate 116 /min Lelo Gallegos MD Work Phone: [facility] 06-09-2020 10:44-0400 Systolic blood pressure 110 mm[Hg] Lelo Gallegos MD Work Phone: [facility] 03-26-2020 22:17-0500 Pulse (Heart Rate) 98 /min [facility] [place] [place] 03-26-2020 21:43-0500 BP Diastolic 66 mm[Hg] [facility] [place] [facility] [place] 03-26-2020 21:43-0500 BP Systolic 99 mm[Hg] [facility] [place] [facility] [place] 03-26-2020 21:43-0500 Pulse Oximetry 95 % [facility] , [place] 03-26-2020 20:50-0500 Respiratory Rate 16 /min [facility] [place] 03-26-2020 20:13-0500 BMI (Body Mass Index) 40.14 kg/m2 [facility], [place] 03-26-2020 20:13-0500 Body Temperature 98.2 [degF] [facility] [place] 03-26-2020 20:13-0500 Body weight 102.78 kg [facility]org[facility] , [place] 02-15-2020 18:22-0500 BMI (Body Mass Index) 39.75 kg/m2 [facility] [place] [place] 02-15-2020 18:22-0500 Body Temperature 98.6 [degF] [facility] [place] 02-15-2020 18:22-0500 Body weight 101.79 kg Brie Jorgensen [facility] , [place] 02-15-2020 18:22-0500 BP Diastolic 78 mm[Hg] [facility] [place] [facility] [place] 02-15-2020 18:22-0500 BP Systolic 127 mm[Hg] [facility] [place] [facility] [place] 02-15-2020 18:22-0500 Height 160 cm [facility]orgensen [facility] , [place] 02-15-2020 18:22-0500 Pulse (Heart Rate) 92 /min [facility], [place] 02-15-2020 18:22-0500 Pulse Oximetry 99 % [facility] , [place] 02-15-2020 18:22-0500 Respiratory Rate 20 /min [facility], [place] 11-20-2019 18:48-0400 BP Diastolic 75 mm[Hg] [facility], [place] 11-20-2019 18:48-0400 BP Systolic 128 mm[Hg] [facility], [place] 11-20-2019 18:48-0400 Pulse (Heart Rate) 83 /min [facility], [place] 11-20-2019 18:48-0400 Pulse Oximetry 97 % [facility], [place] 11-20-2019 18:48-0400 Respiratory Rate 18 /min [facility], [place] 11-20-2019 17:00-0400 BMI (Body Mass Index) 36.31 kg/m2 [facility], [place] 11-20-2019 17:00-0400 Body Temperature 98.4 [degF] [facility], [place] 11-20-2019 17:00-0400 Body weight 92.99 kg [facility], [place] 11-03-2019 11:37-0400 BMI (Body Mass Index) 34.47 kg/m2 [facility], [place] 11-03-2019 11:37-0400 Body Temperature 98.71 [degF] [facility], [place] 11-03-2019 11:37-0400 Body weight 88.27 kg [facility], [place] 11-03-2019 11:37-0400 BP Diastolic 66 mm[Hg] [facility], [place] 11-03-2019 11:37-0400 BP Systolic 117 mm[Hg] [facility], [place] 11-03-2019 11:37-0400 Height 160 cm [facility], [place] 11-03-2019 11:37-0400 Pulse (Heart Rate) 87 /min [facility], [place] 11-03-2019 11:37-0400 Pulse Oximetry 99 % [facility] [place] 11-03-2019 11:37-0400 Respiratory Rate 20 /min [facility] [place] [place] 08-13-2019 19:42-0400 BMI (Body Mass Index) 31 kg/m2 [facility] 08-13-2019 19:42-0400 Body Temperature 98.6 [degF] [facility] 08-13-2019 19:42-0400 Body weight 79.38 kg [facility] 08-13-2019 19:42-0400 Height 160 cm [facility] 08-13-2019 19:40-0400 BP Diastolic 60 mm[Hg] [facility] 08-13-2019 19:40-0400 BP Systolic 156 mm[Hg] [facility] 08-13-2019 19:40-0400 Pulse (Heart Rate) 138 /min [facility] 08-13-2019 19:40-0400 Pulse Oximetry 98 % [facility] 08-13-2019 19:40-0400 Respiratory Rate 16 /min [facility] 06-17-2019 12:45-0400 Respiratory Rate 18 /min [facility] 06-17-2019 07:54-0400 Body Temperature 97.81 [degF] [facility] 06-17-2019 07:54-0400 BP Diastolic 66 mm[Hg] [facility] 06-17-2019 07:54-0400 BP Systolic 99 mm[Hg] [facility] 06-17-2019 07:54-0400 Pulse (Heart Rate) 82 /min [facility] 06-17-2019 07:54-0400 Pulse Oximetry 94 % [facility] 06-14-2019 08:15-0400 BMI (Body Mass Index) 32.92 kg/m2 [facility] 06-14-2019 08:15-0400 Body weight 81.65 kg [facility] 06-14-2019 08:15-0400 Height 157.5 cm [facility] 06-14-2019 04:20-0400 Pulse (Heart Rate) 83 /min [facility] [place], [place] 06-14-2019 04:05-0400 BP Diastolic 58 mm[Hg] [facility] [place] [facility] [place] 06-14-2019 04:05-0400 BP Systolic 95 mm[Hg] [facility] [place] [facility] [place] 06-14-2019 04:05-0400 Pulse Oximetry 95 % [facility] [place] [facility] [place] 06-14-2019 01:12-0400 Respiratory Rate 18 /min [facility] [place] 06-14-2019 00:10-0400 Body Temperature 100.51 [degF] [facility] [place] 06-13-2019 22:00-0400 BMI (Body Mass Index) 32.31 kg/m2 [facility] [place] 06-13-2019 22:00-0400 Body weight 82.74 kg [facility] [place] [facility] [place] 06-13-2019 22:00-0400 Height 160 cm [facility] [place] [facility] [place] 04-28-2019 19:58-0500 Body Temperature 98.8 [degF] [facility] [place] 04-28-2019 19:58-0500 BP Diastolic 70 mm[Hg] [facility] [place] [facility] [place] 04-28-2019 19:58-0500 BP Systolic 98 mm[Hg] [facility] [place] [facility] [place] 04-28-2019 19:58-0500 Pulse (Heart Rate) 119 /min [facility] [place] 04-28-2019 19:58-0500 Pulse Oximetry 100 % [facility] [place] , [place] 04-28-2019 19:58-0500 Respiratory Rate 30 /min [facility] [place] 04-28-2019 19:54-0500 BMI (Body Mass Index) 30.65 kg/m2 [facility] [place] 04-28-2019 19:54-0500 Body weight 78.47 kg Roslyn Jorgensen [facility] [place] [facility] [place] 04-28-2019 19:54-0500 Height 160 cm Roslyn Jorgensen [facility] , [place] Encounters Encounter Date Encounter Type Care Provider Facility Start: 10-26-2023 End: 10-26-2023 ambulatory MARK ELIANA Not Available Start: 10-05-2023 End: 10-05-2023 ambulatory VIOLET JUAREZ [facility] Start: 10-05-2023 End: 10-05-2023 Subsequent hospital visit by physician Violet Juarez MD Work Phone: [id number] Start: 10-05-2023 End: 10-05-2023 Emergency department patient visit VIOLET Richard FRANKLINOY [facility] Start: 10-05-2023 End: 10-05-2023 Emergency department patient visit LINDA Lilly [facility] Start: 09-12-2023 End: 09-12-2023 ambulatory MARK ELIANA Not Available Start: 08-16-2023 End: 08-16-2023 ambulatory MARK ELIANA Not Available Start: 07-26-2023 End: 07-26-2023 ambulatory BLAKE Hatch JAMARI [facility] Start: 07-19-2023 End: 07-19-2023 ambulatory MARK ELIANA Not Available Start: 06-21-2023 End: 06-21-2023 ambulatory MARK ELIANA Not Available Start: 05-20-2023 End: 05-20-2023 ambulatory MARK ELIANA Not Available Start: 05-13-2023 End: 05-13-2023 Emergency department patient visit Jonathan Martinez Facility:[facility] Start: 05-13-2023 End: 05-13-2023 Emergency department patient visit Jonathan Martinez [facility] Start: 05-11-2023 End: 05-12-2023 Emergency department patient visit Zac Britton Donnie Facility:[facility] Start: 05-11-2023 End: 05-11-2023 Emergency department patient visit Reginaparker Britton Donnie [facility] Start: 05-10-2023 End: 05-10-2023 Emergency department patient visit LINDA Vijaya [facility] Start: 05-10-2023 End: 05-10-2023 Emergency department patient visit Chet Berumen DO Work Phone: [facility] Comment on above: Toothache (Primary D x); Dental decay Start: 12-27-2022 End: 12-27-2022 ambulatory [facility] DUMONT [facility] Start: 11-23-2022 End: 11-23-2022 ambulatory MARK DUMONT [facility] Start: 09-04-2022 End: 09-04-2022 Emergency department patient visit Erin Lacy MD Work Phone: [facility] Comment on above: Sprain of right ankl e, unspecified ligament, initial encounter (Primary Dx) Start: 06-29-2022 End: 06-30-[address] MARK DUMONT . Facility: Start: 06-29-2022 End: 06-30-2022 ambulatory Linda Sheppard Facility:[facility] Start: 06-29-2022 End: 06-29-2022 Pain Management Todd Smart [facility] Start: 06-14-2022 End: 06-14-[address] MARK DUMONT . Facility: Start: 05-19-2022 End: 05-19-2022 Emergency department patient visit Erin Lacy MD Work Phone: [facility] Comment on above: Dry socket (Primary Dx) Start: 05-11-2022 End: 05-11-2022 Emergency department patient visit Anuj Quinn MD Work Phone: [facility] Comment on above: Masseter muscle spas m (Primary Dx); Other acute postprocedural pain Start: 03-30-[address] MARK DUMONT . Facili ty:[facility] Start: 03-29-2022 End: 03-29-2022 Subsequent hospital visit by physician [facility] Start: 10-12-2021 End: 10-12-2021 Emergency department patient visit Rishabh Mancini MD Work Phone: [facility] Comment on above: Acute bronchitis, un specified organism (Primary Dx) Start: 07-22-2021 End: 07-22-2021 Emergency department patient visit Clark Moser MD Work Phone: [facility] Comment on above: Acute pharyngitis, u nspecified etiology (Primary Dx) Start: 07-07-2021 ambulatory BRIE ROCA [facility] Ambulatory Start: 06-18-2021 ambulatory FARHAT PASTOR [facility] Start: 06-17-2021 End: 06-18-20[facility] Start: 05-15-2021 End: 05-19-2021 ambulatory [facility] Start: 05-15-2021 End: 05-15-2021 Nutrition therapy Farhat Vang MD Work Phone: [facility] Comment on above: Morbid obesity with body mass index (BMI) of 40.0 or higher ([facility]) Start: 05-14-2021 End: 05-18-2021 [facility] Start: 05-14-2021 End: 05-14-2021 Office outpatient visit 15 minutes Farhat Vang MD Work Phone: [facility] Comment on above: Anxiety and depressi on (Primary Dx); At risk for obstructive sleep apnea; Chronic bilateral low back pain without sciatica; Hepatitis C antibody positive in blood; Body mass index 40.0-44.9, adult (HCC); History of opioid abuse (HCC) Start: 04-16-2021 End: 04-20-2021 [facility] Start: 04-16-2021 End: 04-16-2021 Initial preventive medicine new pt age 18-39yrs Farhat Vang MD Work Phone: [facility] Comment on above: Encounter for [facility] adult medical examination with abnormal findings (Primary Dx); Anxiety and depression; History of opioid abuse (HCC); Morbid obesity with body mass index (BMI) of 40.0 or higher (HCC) Start: 04-16-2021 End: 04-16-2021 Patient encounter status Farhat Vang MD Work Phone: [facility] Start: 03-23-2021 End: 03-23-2021 Emergency department patient visit Anuj Quinn MD Work Phone: [facility] Comment on above: COVID-19 (Primary Dx ); Omphalitis in adult Start: 02-16-2021 End: 02-20-[address] [facility] Start: 02-12-2021 End: 02-16-[address] [facility] Start: 02-10-2021 End: 02-14-[address] [facility] Start: 02-02-2021 End: 02-06-[address] [facility] Start: 01-15-2021 Documentation procedure Jeimy goodman [facility] Start: 01-15-2021 End: 01-15-2021 ambulatory HOLLAND WHIPPLE SETH [facility] Start: 01-15-2021 End: 01-15-2021 Office outpatient new 30 minutes Holland Ann MD Work Phone: [facility] Comment on above: Hemorrhoids, unspeci fied hemorrhoid type Start: 12-29-2020 End: 01-02-[address] [facility] Start: 12-27-2020 End: 12-27-2020 Emergency department patient visit Wayne Springer MD Work Phone: [facility] Comment on above: Viral syndrome (Prim prakash Dx) Start: 11-20-2020 End: 11-20-2020 Emergency department patient visit Anuj Quinn MD Work Phone: [facility] Comment on above: Strain of rhomboid m uscle, initial encounter; Chest wall muscle strain, initial encounter Start: 11-07-2020 End: 11-07-2020 Emergency department patient visit Nicholas Roger MD Work Phone: [facility] Comment on above: Viral URI (Primary D x) Start: 08-28-2020 End: 08-30-2020 Evaluation and management of inpatient ROSLYN HERNANDEZ [facility] Start: 08-25-2020 End: 08-25-[address] [facility] Start: 07-29-2020 End: 08-02-[address] [facility] Start: 07-22-2020 End: 07-26-2020 ambulatory [facility]O [facility] Start: 07-22-2020 End: 07-22-2020 Telemedicine consultation with patient Lelo Gallegos MD Work Phone: [facility] Comment on above: Diet controlled gest ational diabetes mellitus (GDM) in third trimester Start: 07-10-2020 ambulatory LELO GALLEGOS [facility] Start: 07-09-2020 End: 07-09-2020 ambulatory ZELDA BAUTISTA [facility] Start: 07-09-2020 End: 07-09-2020 Office outpatient visit 15 minutes Zelda Bautista CNP Work Phone: [facility] Comment on above: Diet controlled gest ational diabetes mellitus (GDM) in third trimester (Primary Dx) Start: 06-24-2020 End: 06-24-2020 Emergency department patient visit Anuj Quinn MD Work Phone: [facility] Comment on above: Acute frontal sinusi tis, recurrence not specified (Primary Dx) Start: 06-10-2020 End: 06-10-2020 Nutrition therapy Lelo Gallegos Work Phone: [facility] Comment on above: Diet controlled gest ational diabetes mellitus (GDM) in second trimester Start: 06-09-2020 End: 06-09-2020 Office outpatient new 30 minutes Roslyn Stevenson MD Work Phone: [facility] Comment on above: Diet controlled gest ational diabetes mellitus (GDM) in second trimester Start: 05-27-2020 End: 05-31-[address] [facility] Start: 05-21-2020 End: 05-25-[address] [facility] Start: 03-26-2020 End: 03-26-2020 Emergency department patient visit Brie Moreno Work Phone: [facility] Comment on above: Atypical pneumonia ( Primary Dx) Start: 02-15-2020 End: 02-15-2020 Emergency department patient visit Brie Moreno Work Phone: [facility] Comment on above: Pain, dental (Primar y Dx); Acute gingivitis; Alveolar osteitis Start: 11-20-2019 End: 11-20-2019 Emergency department patient visit Crescenciomagui Puri Kai Work Phone: [facility] Comment on above: Bacterial vaginosis (Primary Dx); Trichimoniasis; Furuncle of left axilla Start: 11-03-2019 End: 11-03-2019 Emergency department patient visit Wayne Wahl Gian Work Phone: [facility] Comment on above: Poison arabella (Primary Dx) Start: 08-20-2019 End: 08-21-2019 Patient encounter procedure [facility] Start: 08-20-2019 End: 08-20-2019 Subsequent hospital visit by physician [facility] Start: 08-13-2019 End: 08-13-2019 Emergency department patient visit Christian Redmond Juan Work Phone: [facility] Comment on above: Heroin abuse (HCC) ( Primary Dx) Start: 06-20-2019 End: 06-20-2019 Patient encounter procedure Alisa Palencia Work Phone: [facility] Comment on above: Hepatitis C virus in fection without hepatic coma, unspecified chronicity (Primary Dx) Start: 06-18-2019 End: 06-18-2019 Documentation procedure Taryn Torres [facility] Start: 06-18-2019 [facility] Comment on above: Transition Of Care Start: 06-18-2019 End: 06-18-2019 Patient encounter procedure Taryn Torres [facility] Start: 06-14-2019 End: 06-17-2019 Evaluation and management of inpatient [facility] Work Phone: [facility] Comment on above: Elevated LFTs; IVDA (intravenous drug abuse) complicating (HCC) Start: 06-13-2019 End: 06-14-2019 Emergency department patient visit Brie Moreno Work Phone: [facility] Comment on above: Abdominal pain, unsp ecified abdominal location (Primary Dx); Urinary tract infection with hematuria, site unspecified; Viral hepatitis without hepatic coma, unspecified chronicity, unspecified viral hepatitis type; Polysubstance abuse (HCC); Hyperbilirubinemia Start: 04-28-2019 End: 04-28-2019 Emergency department patient visit Roslyn Keating Work Phone: [facility] Comment on above: Accidental overdose of heroin, initial encounter (HCC) (Primary Dx) Start: 12-20-2016 End: 01-02-2020 Cancer cervix - screening done Lelo Gallegos MD Work Phone: [facility] Start: 12-20-2016 End: 01-02-2020 Encounter for gynecological examination (general) (routine) without abnormal findings Jeimy Tan LPN [facility] Procedures Date Procedure Procedure Detail Performing Clinician [...] Phone: Start: 07-09-2020 Hemoglobin glycosylated a1c Zelda Hayawrdottoniel Bautista [facility] Work Phone: Start: 06-09-2020 Hemoglobin glycosylated [...] Start: 05-18-2019 Adult depression scr eening assessment [facility] Start: 08-05-2016 Microscopic observat ion [Identifier] in Cervix by Cyto stain [facility] Start: 04-05-2011 Microscopic observat ion [Identifier] in Cervix by Cyto stain Erin Lacy MD Work Phone: Human , f unction (observable entity) [facility] Comment on above: x4 Plan of Treatment Date Care Activity Detail Author Start: 2040 Shingles Vaccine (1 of 2) Shingles Vaccine (1 of 2) [facility]th- [place], [place] Start: 12-29-2025 Screening for malignant neoplasm of cervix Pap Smear [facility] Start: 10-31-2024 Screening for malignant neoplasm of cervix Pap Smear [facility] Start: 12-30-2023 Screening for malignant neoplasm of cervix [facility] Start: 11-11-2023 Respiratory Syncytial Virus (RSV) or age 60 yrs+ (1 - Risk 1-dose series) Respiratory Syncytial Virus (RSV) or age 60 yrs+ (1 - Risk 1-dose series) [facility] Start: 11-10-2023 End: 11-10-2023 Patient encounter procedure 11/10/2023 10:00 AM EDT Routine [facility] [address] [address] [facility] Start: 10-27-2023 End: 10-27-2023 Patient encounter procedure 10/27/2023 10:00 AM EDT [facility] [address] [place] [address] [facility] Start: 10-13-2023 End: 10-13-2023 Patient encounter procedure 10/13/2023 10:00 AM EDT [facility] [address] [place] [address] Return in about 2 weeks (around 10/04/2023) for twins, dopplers, growth, transvag. [facility] Comment on above: Return in about 2 weeks (around ) for twins, dopplers, growth, transvag. Start: 10-07-2023 Tdap Vaccine during Tdap Vaccine during [facility] Start: 10-06-2023 Influenza vaccination Flu vaccine (#1) [facility] Start: 10-31-2022 Screening for malignant neoplasm of cervix [facility] Work Phone: Start: 10-05-2022 Influenza vaccination Flu vaccine (#1) [facility] Start: 04-16-2022 History and physical examination, annual for health maintenance Wellness Visit [facility] Start: 02-13-2022 Depression Remission Assessment (PHQ9) Depression Remission Assessment (PHQ9) [facility] Start: 12-29-2021 History and physical examination, annual for health maintenance Wellness Visit [facility] Start: 11-12-2021 End: 11-12-2021 Patient encounter procedure 11/12/2021 Office Visit Primary Care Farhat Vang MD [address] [address] [facility] Primary Care Physicians Start: 11-05-2021 Influenza vaccination [facility] Start: 10-05-2021 Influenza vaccination Flu vaccine (#1) [facility] Start: 06-26-2021 End: 06-26-2021 Nutrition therapy 06/26/2021 Nutrition Nutrition Farhat Vang MD [address] [facility] [address] [place] [address] [facility] Start: 05-15-2021 End: 05-15-2021 Nutrition therapy 05/15/2021 Nutrition Nutrition Angelito Harvey RD [facility] Start: 05-14-2021 End: 05-14-2021 Patient encounter procedure 05/14/2021 Office Visit Primary Care Farhat Vang MD [address] [facility] [address] [place] [address] [facility] Start: 03-17-2021 Depression screening using PHQ-9 (Patient Health Questionnaire 9) score Depression Screening (PHQ9) [facility] Start: 01-15-2021 Depression Remission Assessment (PHQ9) Depression Remission Assessment (PHQ9) [facility] Start: 01-09-2021 Hemoglobin A1c measurement A1C [facility] Start: 12-09-2020 HbA1c (Bld) [Mass fraction] A1C [facility] Start: 12-09-2020 Hemoglobin A1c measurement A1C [facility] Start: 11-05-2020 Influenza vaccination [facility] Start: 10-31-2020 History and physical examination, annual for health maintenance Wellness Visit [facility] Start: 08-28-2020 End: 08-28-2020 Admission to same day surgery center 08/28/2020 Surgery Obstetrics Roslyn Stevenson MD [address] [place] [address] [phone] SECTION [facility] Comment on above: SECTION Start: 08-28-2020 Subsequent hospital visit by physician 08/28/2020 Hospital Encounter Obstetrics Roslyn Stevenson MD [address] [place] [address] [phone] [facility] Start: 08-25-2020 End: 08-25-2020 Office Visit 08/25/2020 Office Visit Endocrinology Zelda Bautista, [employer] [address] [place] [address] [phone] [facility] End[facility]ology Phys[facility] Start: 07-31-2020 End: 07-31-2020 Office Visit 07/31/2020 Office Visit Endocrinology Benito Krueger, MARK [address] [place] [address] [phone] [facility] Start: 07-29-2020 End: 07-29-2020 Patient encounter procedure 07/29/2020 Routine Obstetrics and Gynecology Regla Dias CNM [address] [place] [phone] [facility] ASSURANCE ANALYST - An Affiliate of [facility] Start: 07-22-2020 End: 07-22-2020 Telemedicine consultation with patient 07/22/2020 Telemedicine Nutrition Lelo Gallegos MD [address] [place] [address] [phone] Neris Ulloa [facility] Nutrition[facility] Start: 07-17-2020 End: 07-17-2020 Patient encounter procedure 07/17/2020 Routine Obstetrics and Gynecology Yvonne Santos MD [address] [place] [phone] [facility] ASSURANCE ANALYST - An [facility] of [facility] Start: 07-09-2020 End: 07-09-2020 Office Visit 07/09/2020 Office Visit Endocrinology Zelda Bautista, [employer] [address] [place] [address] [phone] [facility] Endocrinology Physicians Start: 07-04-2020 End: 07-04-2020 Patient encounter procedure 07/04/2020 Routine Obstetrics and Gynecology Radha Pantoja MD [address] [place] [phone] [facility] ASSURANCE ANALYST - An [facility] of [facility] Start: 06-26-2020 End: 06-26-2020 Patient encounter procedure 06/26/2020 Office Visit Endocrinology Janie Chen PA-C [address] [place] [address] [phone] [facility] Endocr[facility]ology Phys[facility] Start: 06-24-2020 End: 06-24-2020 Nutrition [facility] Start: 06-19-2020 End: 06-19-2020 Routine 06/19/2020 Routine Obstetrics and Gynecology Larissa, Regla Arriaga CNM [address] [place] [address] [facility] ASSURANCE ANALYST - An [facility] Start: 05-17-2020 Depression screening using PHQ-9 (Patient Health Questionnaire 9) score Depression Screening (PHQ9) [facility] Start: 2020 Screening for malignant neoplasm of cervix [facility] Start: 02-26-2020 End: 02-26-2020 Initial 02/26/2020 Initial Obstetrics and Gynecology Jai Huerta MD [address] [facility] [address] [place] [address] [facility] ASSURANCE ANALYST Start: 11-06-2019 Influenza vaccination [place], [place] Start: 11-06-2019 Influenza vaccination given [facility] Start: 08-06-2019 Screening for malignant neoplasm of cervix Pap Smear [facility] Start: 06-20-2019 End: 06-20-2019 Office Visit 06/20/2019 Office Visit Transition of Care Alisa Palencia, [employer] [address] [facility] [address] [place] [address] [phone] [facility] Start: 11-05-2018 Influenza vaccination Flu vaccine (#1) [place] Start: 11-05-2018 Influenza vaccination given Sequential Influenza Vaccine (#1) [facility] Start: 03-21-2015 Cervical cancer screen Cervical cancer screen [place], [place] Start: 03-21-2015 Screening for malignant neoplasm of cervix Cervical cancer screen [place] Start: 04-05-2014 Screening for malignant neoplasm of cervix Pap smear [facility] Start: 2009 DTaP/Tdap/Td vaccine (1 - Tdap) DTaP/Tdap/Td vaccine (1 - Tdap) [place] Start: 2009 Hepatitis B vaccine (1 of 3 - Risk 3-dose series) Hepatitis B vaccine (1 of 3 - Risk 3-dose series) [facility] Work Phone: Start: 2008 Hepatitis C screening Hepatitis C screen [facility] Start: 2006 COVID-19 Vaccine (1) COVID-19 Vaccine (1) [facility] Start: 2005 HIV screen HIV screen [place] Start: 2005 HIV screening HIV screen [facility] Start: 2002 COVID-19 Vaccine (1) COVID-19 Vaccine (1) [facility] Start: 2002 Depression Monitoring Depression Monitoring [facility] Start: 2001 DTaP/Tdap/Td vaccine (1 - Tdap) DTaP/Tdap/Td vaccine (1 - Tdap) [place] Start: 2001 DTaP/Tdap/Td vaccine (5 - Tdap) DTaP/Tdap/Td vaccine (5 - Tdap) [facility] Start: 2000 Albumin DL <= 20 mg/L (U) [Mass/Vol] Urine Microalbumin [facility] Start: 2000 Diabetic foot examination Foot Exam [facility] Start: 2000 Microalbumin measurement, urine, quantitative Urine Microalbumin [facility] Start: 2000 Ophthalmic examination and evaluation Ophthalmology Exam [facility] Start: 1996 Pneumococcal 0-64 years Vaccine (1 of 1 - PPSV23) Pneumococcal 0-64 years Vaccine (1 of 1 - PPSV23) [place] Start: 1996 Pneumococcal Vaccine: Ped or At-Risk (1 of 2 - PPSV23) Pneumococcal Vaccine: Ped or At-Risk (1 of 2 - PPSV23) [facility] Start: 1995 COVID-19 Vaccine (1) COVID-19 Vaccine (1) [facility] Start: 1993 History and physical examination, annual for health maintenance Wellness Visit [facility] Start: 1991 Varicella vaccine (1 of 2 - 2-dose childhood series) Varicella vaccine (1 of 2 - 2-dose childhood series) [facility] Start: 1990 COVID-19 Vaccine (#1) COVID-19 Vaccine (#1) [facility] Start: 1990 Hepatitis B vaccine (1 of 3 - 3-dose series) Hepatitis B vaccine (1 of 3 - 3-dose series) [facility] Start: 1990 Hepatitis C screening Hepatitis C screen [facility] Start: 1990 Tetanus vaccination Tetanus: Every 10yrs [facility] Anti smooth muscle antibody IgA level Anti-Smooth Muscle Antibody Lab Add-On 06/15/2019 1:50 PM EDT [facility] Antimitochondrial antibody titer Antimitochondrial Antibody Lab Add-On 06/15/2019 1:50 PM EDT [facility] End: 11-20-2019 C.trachomatis N.gonorrhoeae DNA, Urine C.trachomatis N.gonorrhoeae DNA, Urine Microbiology STAT One Time for 1 Occurrences starting 11/20/2019 until 11/20/2019 [place] Comment on above: One Time for 1 Occurrences starting 11/05 until 11/20/2019 C.trachomatis N.gonorrhoeae DNA, Urine C.trachomatis N.gonorrhoeae DNA, Urine Microbiology Stat [employer] Label print 11/20/2019 5:55 PM EDT [place] End: 03-26-2020 Covid-19 Ambulatory Covid-19 Ambulatory Lab Routine Once for 1 Occurrences starting 03/26/2020 until 03/26/2020 [place] Comment on above: Once for 1 Occurrences starting 03/26/19 21 until 03/26/2020 Covid-19 Ambulatory Covid-19 Amb ulatory Lab Routine 03/26/2020 8:44 PM EST [place] End: 06-13-2019 Culture, Blood 1 Culture, Blood 1 Microbiology STAT One Time for 1 Occurrences starting 06/13/2019 until 06/13/2019 [place] Comment on above: One Time for 1 Occurrences starting 10/2019 until 06/13/2019 Culture, Blood 1 [facility] End: 03-23-2021 Culture, Wound [facility] Work Phone: Comment on above: One Time for 1 Occurrences starting 03/07 until 03/23/2021 Cytomegalovirus DNA assay CMV DN A Detection and Quant, Blood Lab Routine 06/15/2019 1:50 PM EDT [facility] Kirsten-Hazel Virus P CR, Quantitative Kirsten-Hazel Virus PCR, Quantitative Lab Routine 06/15/2019 1:50 PM EDT [facility] End: 04-16-2022 Hemoglobin A1c/Hemoglobin.total in Blood Hemoglobin A1c Lab Routine Encounter for general adult medical examination with abnormal findings 1 Occurrences starting 04/16/2021 until 04/16/2022 [facility] Work Phone: Comment on above: 1 Occurrences starting 04/16/2021 until 04/16/2022 Hemoglobin A1c/Hemoglobin.total in Blood Hemoglobin A1c Lab Routine Encounter for general adult medical examination with abnormal findings 04/16/2021 10:58 AM [facility] End: 04-16-2022 Hepatitis C antibody measurement Hepatitis C Antibody Lab Routine Encounter for general adult medical examination with abnormal findings 1 Occurrences starting 04/16/2021 until 04/16/2022 [facility] Comment on above: 1 Occurrences starting 04/16/2021 until 04/16/2022 Hepatitis C antibody measurement Hepatitis C Antibody Lab Routine Encounter for general adult medical examination with abnormal findings 04/16/2021 10:58 AM [facility] MDI Treatment MDI Treatment Re spiratory Care Routine Every 6hr As Needed until discontinued starting 03/26/2020 [facility] [place] Comment on above: Every 6hr As Needed until discontinued s tarting 03/26/2020 Nonrebreather mask oxygen Nonreb reather mask oxygen Respiratory Care Routine As Needed until discontinued starting 10/05/2023 [facility] Comment on above: As Needed until discontinued starting Nuclear Ab IF (S) [Titer] KENIA La b Add-On 06/15/2019 1:50 PM EDT [facility] End: 06-24-2020 Urinalysis, reflex to microscopic Urinalysis, reflex to microscopic Lab STAT One Time for 1 Occurrences starting 06/24/2020 until 06/24/2020 [employer] Work Phone: Comment on above: One Time for 1 Occurrences starting 06/06 until 06/24/2020 End: 05-14-2022 XR Lumbar Spine Complete AP/Lat w Obls XR Lumbar Spine Complete AP/Lat w Obls Imaging Routine Chronic bilateral low back pain without sciatica 1 Occurrences starting 05/14/2021 until 05/14/2022 [facility] Work Phone: Comment on above: 1 Occurrences starting 05/14/2021 until 05/14/2022 Payers Date Payer Category Payer Medicaid [facility] [id number] 2021-Present [phone] [address] [place] [address] [id number]. 7.3.074121.315 2021 Unknown [id number] 1.2.840.540824.1.13.239.2. 7.3.242029.315 2017 Medicaid [id number] 1.2.840.537618.1.13.385.2. 7.3.003812.315 2012 Medicaid [id number] 1.2.840.067639.1.13.239.2. 7.3.225086.315 2012 Medicaid [id number] 2008 Private Health Insurance [id number] 1990 Unknown [id number] 2.16.840.1.121931.3.579.2. 173 1990 Unknown [id number] 2.16.840.1.383924.3.579.2. 900 1990 Unknown [id number] 2.16.840.1.975962.3.579.2. 900 1990 Unknown [id number] 2.16.840.1.993940.3.579.2. 900 1990 Unknown [id number] 2.16.840.1.684970.3.579.2. 900 1990 Unknown [id number] 2.16.840.1.742795.3.579.2. 900 1990 Unknown [id number] 2.16.840.1.980826.3.579.2. 900 1990 Unknown [id number] 2.16.840.1.318543.3.579.2. 900 1990 Unknown [id number] 2.16.840.1.909791.3.579.2. 903 1990 Unknown [id number] 2.16.840.1.000872.3.579.2. 903 1990 Unknown [id number] 2.16.840.1.418430.3.579.2. 903 1990 Unknown [id number] 2.16.840.1.681706.3.579.2. 903 1990 Unknown [id number] 2.16.840.1.630427.3.579.2. 903 1990 Unknown [id number] 2.16.840.1.711887.3.579.2. 903 1990 Unknown [id number] 2.16.840.1.880561.3.579.2. 903 1990 Unknown [id number] 2.16.840.1.067946.3.579.2. 903 1990 Unknown [id number] 2.16.840.1.287680.3.579.2. 903 1990 Unknown [id number] 2.16.840.1.311087.3.579.2. 903 1990 Unknown [id number] 2.16.840.1.530058.3.579.2. 903 1990 Unknown [id number] 2.16.840.1.573347.3.579.2. 903 1990 Unknown [id number] 2.16.840.1.785735.3.579.2. 903 1990 Unknown [id number] 2.16.840.1.902889.3.579.2. 903 1990 Unknown [id number] 2.16.840.1.814679.3.579.2. 903 1990 Unknown [id number] 2.16.840.1.605524.3.579.2. 593 1990 Unknown [id number] 2.16.840.1.910789.3.579.2. 593 1990 Unknown [id number] 2.16.840.1.623713.3.579.2. 593 1990 Unknown [id number] 2.16.840.1.375065.3.579.2. 593 1990 Unknown [id number] 2.16.840.1.906797.3.579.2. 727 1990 Unknown [id number] 2.16.840.1.186711.3.579.2. 727 1990 Unknown [id number] 2.16.840.1.372698.3.579.2. 727 1990 Unknown [id number] 2.16.840.1.685282.3.579.2. 174 1990 Unknown [id number] 2.16.840.1.149639.3.579.2. 174 1990 Unknown [id number] 2.16.840.1.971837.3.579.2. 174 1990 Unknown [id number] 2.16.840.1.615511.3.579.2. 174 1990 Unknown [id number] 2.16.840.1.107242.3.579.2. 174 1990 Unknown [id number] 2.16.840.1.729706.3.579.2. 1259 1990 Unknown [id number] 2.16.840.1.790063.3.579.2. 1259 1990 Unknown [id number] 2.16.840.1.069847.3.579.2. 1259 1990 Unknown [id number] 2.16.840.1.341631.3.579.2. 1259 1990 Unknown [id number] 2.16.840.1.573124.3.579.2. 1259 1990 Unknown [id number] 2.16.840.1.088312.3.579.2. 1259 1990 Unknown [id number] 2.16.840.1.286312.3.579.2. 175 1990 Unknown [id number] 2.16.840.1.847291.3.579.2. 175 1990 Unknown [id number] 2.16.840.1.714535.3.579.2. 175 1959 Unknown [id number] Social History Date Type Detail Facility Start: 04-28-2019 End: 11-03-2019 Tobacco smoking status NHIS Current every day smoker [place] End: 02-15-2020 History of tobacco use Cigarette Sm[place] Start: 04-28-2019 End: 10-05-2023 Cigarettes smoked current (pack per day) - Reported [facility] Start: 04-28-2019 Alcohol intake Current drinke r of alcohol (finding) [place] Start: 1990 Sex Assigned At Not on file [place] Start: 06-13-2019 End: 10-05-2023 Alcohol intake Ex-drinker (finding) [facility] Exposure to SARS-CoV -2 (event) Unable to assess [place] Start: 05-18-2019 End: 04-16-2021 History SDOH Alcohol Frequency 3 [facility] Start: 05-18-2019 End: 07-16-2020 History SDOH Alcohol Std Drinks 5 [facility] Start: 05-04-2021 End: 05-19-2022 Exposure to SARS-CoV-2 (event) Not sure [facility] Start: 11-20-2019 End: 07-26-2023 Tobacco use and exposure Never used [email or web address] [place] Start: 06-09-2020 End: 07-26-2023 Tobacco smoking status NHIS Former smoker [facility] End: 02-15-2020 History of tobacco use Current smoker [facility] Start: 12-09-2019 [facility] Start: 04-16-2021 History SDOH Social Connections Get Together 4 [facility] Start: 04-16-2021 History SDOH Food Worry 1 [facility] Start: 09-04-2022 End: 10-05-2023 Sex Assigned At Female [facility] Start: 09-04-2022 History SDOH Alcohol Frequency 2 [employer] How often to you hav e a drink containing alcohol? Monthly or less [facility] [place] [facility] Average Number of Drinks Not on file [facility] [place] [facility] How often to you hav e a drink containing alcohol? Never [facility] [place] [facility] Medical Equipment Procedure Code Equipment Code Equipment Origin al Text Equipment Identifier Dates Use to check BG QID Dx O24.14 . [id number] Start: 06-09-2020 Use as instructe d to check BG QID Dx O24.14 . [id number] Start: 06-09-2020 End: 06-11-2020 use to test BLOO D SUGAR FOUR TIMES DAILY [id number] Start: 06-09-2020 Goals Date Patient Goal Desired Activity /State Functional Status Date Assessment Result Facility 05-13-2023 Functional Status N/A [facility] 05-11-2023 Functional Status N/A [facility] 06-29-2022 Functional Status N/A [facility] Clinical Notes 06-09-2020 to 05-13-2023 Note [...] Follow these instructions at home: Medicines Take gxhh-hhb-gnrkbei and prescription medicines only as told by [...] provider. Document Revised: 04/30/2021 Document Reviewed: 04/30/2021 [employer] Patient Education 2022 [employer]. Follow Up Care 05/13/2023 11:20:07 With:[place] Address: [place] [address] Business (1) When:05/16/2023 12:45:32 Comments:Dentistry follow-up [facility] 05-12-2023 Hospital Discharg e instructions Patient Education 05/11/2023 23:33:09 Dental Pain, Glbd-hn-Mbvj Dental Pain Dental pain is often a [...] Follow these instructions at home: Medicines Take alpt-wab-gudlzpw and prescription medicines only as told by [...] damage to the area. Brushing your teeth [place] your teeth twice a day using a [...] only when you eat or drink. Take pnlj-bwk-wudghcz and prescription medicines only as told by your dentist. Watch your dental pain for any changes. Let your dentist know if symptoms get worse. This information is not intended to replace advice given to you by your health care provider. Make sure you discuss any questions you have with your health care provider. Document Revised: 11/26/2020 Document Reviewed: 11/26/2020 [employer] Patient Education 2022 [employer] Follow Up Care 05/11/2023 21:26:40 With:Linda Sheppard DO Address: Roel Julien, [facility], [facility] [address] [place] [address]- When:05/14/2023 [facility] 05-11-2023 Evaluation + Plan note Extrac roxann from: Title:ED Note Author:Violet Walters PA-C ate:05/11/23 1. Pain, dental (K08.89: Oth er specified disorders of teeth and supporting structures) Ordered: amoxicillin-clavulanate, = 1 tab(s), Oral, q12hr, X 7 day(s), # 14 tab(s), Refills(s) 0, Pharmacy: [facility] #[facility], 160, cm, 05/11/23 21:53:00 EST, Height/Length Dosing, 110, kg, 05/11/23 21:53:00 EST, Weight Dosing chlorhexidine topical, 0.018 gm, 15 mL, Oral, BID, 480 mL, Refill(s) 0, (swish and spit; do not swallow), [facility], 160, cm, 05/11/23 21:53:00 EST, Height/Length Dosing, 110, kg, 05/11/23 21:53:00 EST, Weight Dosing 2. Infected dental caries (K02.9: Dental caries, unspecified) Ordered: amoxicillin-clavulanate, = 1 tab(s), Oral, q12hr, X 7 day(s), # 14 tab(s), Refills(s) 0, Pharmacy: [facility] #16, 160, cm, 05/11/23 21:53:00 EST, Height/Length Dosing, 110, kg, 05/11/23 21:53:00 EST, Weight Dosing chlorhexidine topical, 0.018 gm, 15 mL, Oral, BID, 480 mL, Refill(s) 0, (swish and spit; do not swallow), [facility], 160, cm, 05/11/23 21:53:00 EST, Height/Length Dosing, 110, kg, 05/11/23 21:53:00 EST, Weight Dosing 3. First trimester (Z34.91: Encounter for supervision of normal , unspecified, first trimester) Periapical abscess without sinus (K04.7: Periapical abscess without sinus) Orders: ketorolac, 30 mg = 1 mL, Injection, IntraMuscular, Once, Stop date 05/11/23 23:31:00 EST, STAT, Start date 05/11/23 23:31:00 EST, 05/11/23 23:31:00 EST [facility]03-05-2024 Hospital Discharge instructions* Discharge Instructions* Chet Berumen DO - 05/10/2023 11:50 AM EST Use amoxicillin as prescribed. Use Tylenol as needed for pain. Follow-up with dentist as soon as possible. * Attachments The following attachments cannot be sent through Care Everywhere. * Tooth Decay (Zambian) * Tooth and Gum Pain (Zambian) [facility] History of Present illness Narrative* Angelito [...] Supplements: Reviewed Current Outpatient Medications Ordered in [facility] Medication Sig Dispense Refill baclofen (LIORESAL) [...] - 6-7 PM- crock pot meals- goulash; [place] chicken; spicy rice with chicken and beans; [...] calorie goals/day. Estimated Nutritional Needs: Calorie Needs: 7705-4385 kcals/day (MSJ x 1.3AF -500-1000 to promote gradual weight loss) Patient/Family Education: Learner: family and patient Readiness: action - ready to set action plan and implement goals Barriers to Learning: none Method: explanation and handout Response: verbalizes understanding Expected Adherence: good Education Materials Provided: Healthy Meal Planning handout ([facility]), Goal Sheet, 1,931-Zhaagxc3-Bad Menus (NCM), 1,800-Calorie 5-Day Menus (NCM), Weight Loss Tips (NC) Monitoring/Evaluation: Lab results, weight, food recall, meal planning, goal achievement, physical activity, medication management. This documentation has been sent to the referring healthcare provider. Angelito Harvey RDN, Personal Office documented in this [id number] History of Present illness Narrative* Farhat Vang [...] C hepatitis virus. 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 documented in this [id number] History of Present illness Narrative* Farhat Vang [...] current medications that are prescribed by her chemistry specialist. She has 4 children at home [...] Not difficult at all documented in this [id number] History of Present illness Narrative* Holland Ann [...] Procedure: SECTION; Surgeon: Roslyn Stevenson MD; [facility]; Service: OBGYN SECTION, LOW TRANSVERSE 3 [...] Friends and Family: Not on file Attends Voodoo Services: Not on file Active Member of [...] Report 12/29/2020 Final Value:Gynecologic Cytology Report Case: [id number] Authorizing Provider: Germania Valentino, Collected: 12/29/2020 11:09 AM FIBERGLASS TUBE MOLDER Ordering Location: [facility] ASSURANCE ANALYST - An Received: 12/30/2020 12:03 PM [facility] First [...] from every slide are reviewed by a extract mixer. Specimen processing and Primary Screening performed at: [facility] - [address] [place] [id number] HPV Results 12/29/2020 Final Value:This result contains [...] physician. Holland Ann MD documented in this [id number] History of Present illness Narrative* Jeimy Tan LPN - 01/15/2021 11:17 AM EST This nurse acted as a pvc monitor for a rectal exam by Dr. Ann for Tia. Tia verbalized consent to be examined, appeared comfortable and tolerated the exam well. documented in this [id number] History of Present illness Narrative* Neris Ulloa, MATIAS - 07/22/2020 12:04 PM EDT Patient Name: iTa Levin Patient : 1990 Primary Care Provider: [...] oatmeal packet. Snack celery + PB or Egyptian yogurt or green peppers. Lunch - will be light if full from snack and may have an early dinner. Dinner - pork chops, steamed vegetables. Snack - Egyptian yogurt or vegetables or watermelon. Beverages - [...] prescription for Current Outpatient Medications Ordered in [facility] Medication Sig Dispense Refill blood sugar [...] BLOOD SUGAR FOUR TIMES DAILY No current [facility]-ordered facility-administered medications on file. SMBG Results: [...] the referring healthcare provider. documented in this [id number] Instructions* Patient Instructions* Zelda Bautista CNP - [...] to renew/prescribe testing supplies. documented in this [id number] History of Present illness Narrative* Zelda Bautista [...] visit with us. The patient did bring Jazzdesklood sugar meter with her for download today however there is not many readings on it. She states she started a new job at [employer] and does noise get breaks to check [...] 4. Patient to cont. To follow with strip mill operator 5. Patient will require 2 hour 75 gram OGTT 8-12 weeks after delivery. 6. Follow-up in 2 weeks. Risks and potential complications of diabetes were reviewed with the patient. Electronically signed by Zelda MARIN 07/09/2110:03 AM documented in this [id number] History of Present illness Narrative* Lelo Gallegos [...] month during . While awaiting appointment with strip mill operator, patient provided with details of [...] 1 hour post prandial. 4. Referral to strip mill operator 5. Patient will require 2 hour 75 gram OGTT 8-12 weeks after delivery. 6. Follow-up in 2 weeks. Risks and potential complications of diabetes were reviewed with the patient. documented in this encounterFloridaHealthEvaluation + Plan note No data available for this section [facility] Diagnosis Diet controlled gestational diabetes mellitus (GDM) in second trimester [facility] Diagnosis Acute frontal sinusitis, recurrence not specified- Primary documented in this encounter [employer] Phone: evalmvppwy note* Diagnosis Diet controlled gestational diabetes mellitus (GDM) in third trimester- Primary [facility]* Diagnosis Diet controlled gestational diabetes mellitus (GDM) in third trimester [facility]* Diagnosis Viral URI- Primary Acute upper respiratory infections of unspecified site documented in this encounter [employer] Phone: evalgpmbmz note* Diagnosis Strain of rhomboid muscle, initial encounter Chest wall muscle strain, initial encounter documented in this encounter [employer] [facility] Phone: evaluation note* Diagnosis Viral syndrome- Primary Unspecified viral infection, in conditions classified elsewhere and of unspecified site documented in this encounter [employer] [facility] Phone: Evaluation note* Diagnosis Hemorrhoids, unspecified hemorrhoid type documented in this encounter [facility] note* Diagnosis COVID-19- Primary Omphalitis in adult Unspecified local infection of skin and subcutaneous tissue documented in this encounter [employer] Phone: evaluation note* Diagnosis Encounter for general adult medical examination with abnormal findings- Primary Anxiety and depression History of opioid abuse (HCC) Morbid obesity with body mass index (BMI) of 40.0 or higher (HCC) documented in this encounter [facility] note* Diagnosis Anxiety and depression- Primary At risk for obstructive sleep apnea Chronic bilateral low back pain without sciatica Hepatitis C antibody positive in blood Body mass index 40.0-44.9, adult (HCC) Body Mass Index 40.0-44.9, adult History of opioid abuse (HCC) documented in this encounter [facility] note* Diagnosis Morbid obesity with body mass index (BMI) of 40.0 or higher (HCC) documented in this encounter [facility] note* Diagnosis Acute pharyngitis, unspecified etiology- Primary documented in this encounter [employer] [facility] Phone: evaluation note* Diagnosis Acute bronchitis, unspecified organism- Primary documented in this encounter [employer] Phone: evaluation note* Diagnosis Masseter muscle spasm- Primary Spasm of muscle Other acute postprocedural pain documented in this encounter [employer] Phone: evaluation note* Diagnosis Dry socket- Primary Alveolitis of jaw documented in this encounter [employer] Phone: evaluation note* Diagnosis Sprain of right ankle, unspecified ligament, initial encounter- Primary documented in this encounter [facility] note* Diagnosis Toothache- Primary Unspecified disorder of the teeth and supporting structures Dental decay Unspecified dental caries documented in this encounter [employer] note* Diagnosis 26 weeks gestation of - Primary state, incidental documented in this encounter [facility] instructions* Instructions* Anuj Quinn MD - 06/24/2020 Although many ziin-mhi-mvdobsm cough cold flu sinus medications are safe in , I would contact her ASSURANCE ANALYST office in [facility] to verify what your ASSURANCE ANALYST group feels a safe in . Tylenol [...] be sent through Care Everywhere. * Sinusitis (Zambian) documented in this [employer] Phone: Hospital Discharge instructions* Attachments The following attachments cannot be sent through Care Everywhere. * URI (Upper Respiratory Infection) (Zambian) documented in this [employer] Phone: [facility]ital Discharge instructions* Attachments The following attachments cannot be sent through Care Everywhere. * Muscle Strain (Zambian) documented in this [employer] Phone: Hospital Discharge instructions* Attachments The following attachments cannot be sent through Care Everywhere. * Viral Infections (Zambian) documented in this [employer] Phone: hospital Discharge instructions* Attachments The following attachments cannot be sent through Care Everywhere. * Coronavirus Disease (COVID-19): General Info (Zambian) * Coronavirus Disease (COVID-19): Isolation (Zambian) * Piercing: Infection (Zambian) documented in this [employer] Phone: Hospital Discharge instructions* Instructions* Clark Moser MD - 07/22/2021 Use Tylenol or Motrin for pain. Take amoxicillin twice a day. Amoxicillin treats strep throat, ear infections, bronchitis and pneumonia. Call primary care doctor for close follow-up. * Attachments The following attachments cannot be sent through Care Everywhere. * Sore Throat (Zambian) documented in this [employer] Phone: spital Discharge instructions* Attachments The following attachments cannot be sent through Care Everywhere. * Bronchitis ([place]ian) documented in [facility]: [facility] Discharge instructions* Attachments The following attachments cannot be sent through Care Everywhere. * Cramp: Muscle (Zambian) * Pain Post-Surgery: Acute (Zambian) documented in [facility] Phone: spital Discharge instructions* Attachments The following attachments cannot be sent through Care Everywhere. * [place] Tooth Extraction: Post-op ([place]ian) documented in this [facility]ap[facility] Phone: spital Discharge instructions No data available for this section [facility] Discharge instructions* Attachments The following attachments cannot be sent through Care Everywhere. * Ankle Sprain ([place]ian) documented in this encounterB[facility]PITALThreadflip [facility] Discharge instructions* Attachments The following attachments cannot be sent through Care Everywhere. * : Weeks 26 to 30 (Zambian) * : When to Call (After 20 Weeks): General Info (Zambian) * : Twins: General Info ([place]ian) [facility] No data available for this section [facility] for referral (narrative)* Consultation (Routine) Status Reason Specialty Diagnoses / Procedures Referred By Contact Referred To Contact Authorized Nutrition Diagnoses Diet controlled gestational diabetes mellitus (GDM) in second trimester Lelo Gallegos MD [address] [place] [address] Nutrition Services [address] [place] [address] [facility] for visit Narrative* Consultation (Routine) - Pending Review Specialty Diagnoses / Procedures Referred By Joey grimes Referred To Contact Gastroenterology Diagnoses Hemorrhoids, unspecified hemorrhoid type Germania Galaviz, FIBERGLASS TUBE MOLDER [address] [place] [address] Holland Ann MD [facility] [place] [address] Referral ID Status Reason Start Date Expiration Date V isits Requested Visits Authorized [id number] Pending Review 12/29/2020 01/14/2022 1 1 [facility] Assessments Diagnosis Accidental overdose of heroin, initial [...] FoundDocuments on File Type Date Recorded Patient Bleaching Machine Operator Expl anation Advance Directives and Living Will Power of Foam Rubber Mixer Documents on File Type Date Recorded Patient Bleaching Machine Operator Expl anation Advance Directives and Living Will 06/14/2019 7:25 AM does not have 2 0 Latest Code Status on File Code Status Date Activated Date Inactivated Comments Full Code 06/15/2019 9:29 AM 06/17/2019 4:38 PM Full Code - Unverified 06/14/2019 8:35 AM 06/15/2019 9:29 AM Documents on File Type Date Recorded Patient Bleaching Machine Operator Expl anation Advance Directives and Living Will 06/14/2019 7:25 AM does not have 05/17/2 0 Latest Code Status on File Code Status Date Activated Date Inactivated Comments Full Code 06/15/2019 9:29 AM 06/17/2019 4:38 PM Full Code - Unverified 06/14/2019 8:35 AM 06/15/2019 9:29 AM Documents on File Type Date Recorded Patient Bleaching Machine Operator Expl anation Advance Directives and Living Will 06/20/2019 1:10 PM does not have 3/13/2 0 Documents on File Type Date Recorded Patient Bleaching Machine Operator Expl anation ACP-Advance Directive ACP-Power of Foam Rubber Mixer Documents on File Type Date Recorded Patient Bleaching Machine Operator Expl anation Advance Directives and Living Will 06/20/2019 1:10 PM does not have 3/13/2 0 Documents on File Type Date Recorded Patient Bleaching Machine Operator Expl anation Advance Directives and Living Will 08/28/2020 5:58 AM does not have 3/13/2 0 Latest Code Status on File Code Status Date Activated Date Inactivated Comments Full Code 08/28/2020 11:15 AM 08/30/2020 11:53 AM Full Code 08/28/2020 5:31 AM 08/28/2020 11:07 AM Full Code 06/15/2019 9:29 AM 06/17/2019 4:38 PM Documents on File Type Date Recorded Patient Bleaching Machine Operator Expl anation Advance Directives and Living Will 08/28/2020 5:58 AM does not have 3/13/2 0 Latest Code Status on File Code Status Date Activated Date Inactivated Comments Full Code 08/28/2020 11:15 AM 08/30/2020 11:53 AM Full Code 08/28/2020 5:31 AM 08/28/2020 11:07 AM Full Code 06/15/2019 9:29 AM 06/17/2019 4:38 PM Documents on File Type Date Recorded Patient Bleaching Machine Operator Expl anation Advance Directives and Livin g Will 05/15/2021 12:00 AM Latest Code Status on File Code Status Date Activated Date Inactivated Comments Full Code 10/05/2023 9:02 PM Hospital Course * Savita Stiles PA-C - 06/17/2019 10:12 AM EDT MEDONE DISCHARGE SUMMARY Tia Levin Account: [id number] Admitted: 06/14/2019 Discharge Date/Time: 06/17/19 / 10:12 [...] amphetamine and heroine use who presented to [facility] 06/14/19 with complaints of abdominal pain and nausea. [facility] AST 1116 ALT 665 Alk phos 255 T bili 6.5 Lipase 8. CTAP revealed pericholecystic fluid vs GB wall thickening, no gallstones or hepatic pathology noted. Patient transferred to [facility] 06/14/2019 for further treatment and evaluation. GI [...] She understood this. Patient is new to [place]. I have reviewed chart for all vitals, diagnostic data, and j2ee consultant notes. I discussed patient's case with Dr. Gregorio, Dr. Hay (GI) and RN. Discharge Medications Medication List ASK your doctor about these medications naltrexone microspheres Commonly known as: VivitroL Inject 380 (three hundred eighty) mg into the shoulder, thigh, or buttocks every 30 (thirty) days . Physician(s) Family: Physician No, Phone: None, Address: [facility] Follow Up: Javier Hay MD [address] [place] [address] Ag Kendall [address] [place] [id number] Follow up Repeat weekly CBC, CMP and PT/INR for the next 3-4 weeks then follow up out patient with Dr. Hay. Laboratory Follow Up by [facility]: Weekly labs for CBC, CMP, PT/INR Additional Information: Patient seen and examined day of discharge. For more information regarding patient's care, including complete radiology reports, please contact [facility] [place] at Patient instructions, including activity, [...] amphetamine and heroine use who presented to [facility] 06/14/19 with complaints of abdominal pain and nausea. [facility] AST 1116 ALT 665 Alk phos 255 T bili 6.5 Lipase 8. CTAP revealed pericholecystic fluid vs GB wall thickening, no gallstones or hepatic pathology noted. Patient transferred to [facility] 06/14/2019 for further treatment and evaluation. LFTs [...] 1:16 PM EDT RESOURCES FOR PRIMARY CARE [facility] Primary Care Closed Opens tomorrow [address], [place] [address] [facility] [place] [address] DIRECTIONS WEBSITE [facility] Walk-In Care Closed Opens tomorrow [address] [place] [address] documented in this encounter* Instructions* Adia Dillon, FIBERGLASS TUBE MOLDER - 08/13/2019 Please stay well-hydrated. I strongly encourage you to follow-up with Dr. Yadav regarding heroin abuse. Dr. Echeverria is well-known in the community for treating opiate addiction. Should you have any troubles with shortness of breath please return the ER immediately. * Attachments The following attachments cannot be sent through Care Everywhere. * Opioid Use Disorder: Medication-Assisted Treatment: General Info (Zambian) documented in this encounter* Attachments The following attachments cannot be sent through Care Everywhere. * Bacterial Vaginosis (Zambian) * Trichomoniasis (Zambian) documented in this encounter* Attachments The following attachments cannot be sent through Care Everywhere. * Dental Surgery: Generic: Post-op ([place]ian) documented in this encounter* Attachments The following attachments cannot be sent through Care Everywhere. * Bronchitis (Zambian) * Pneumonia (Zambian) documented in this encounter* Attachments The following attachments cannot be sent through Care Everywhere. * Poison [place] - [place] - and [place] ([place]ian) documented in this encounter History of Present Illness * Javier Hay MD - 06/17/2019 9:59 AM EDT GASTROENTEROLOGY DAILY PROGRESS NOTE 1 Patient Name: Tia Levin MR #: [id number] Assessment/Plan: Elevated LFTs Assessment & Plan 29yo F with PMHx IVDU and hepatitis C who presents from [facility] with elevated LFTs and imaging c/f [...] AM: Laboratory, Radiology, Medications and Transcriptions Javier aHy * Consuelo Jaquez RN - 06/17/2019 9:08 [...] Auguste MD - 06/17/2019 7:41 AM EDT [facility] Inpatient Progress Note 06/17/2019 Tia Levin 1990 [id number] Assessment/Plan: Tia Levin is a 29 y.o. female with a history of amphetamine and heroine use who presented to [facility] 06/14/19 with complaints of abdominal pain and nausea. OL AST 1116 ALT 665 Alk phos 255 T bili 6.5 Lipase 8. CTAP revealed pericholecystic fluid vs GB wall thickening, no gallstones or hepatic pathology noted. Patient transferred to [facility] 06/14/2019 for further treatment and evaluation. 1. Acute Liver Injury: [facility] AST 1116 ALT 665 Alk phos [...] labs, diagnostics, vitals including pulse ox, and j2ee consultant/other provider recommendations. No acute issues overnight [...] 2 Patient Name: Tia Levin MR #: [id number] Assessment/Plan: Elevated LFTs Assessment & Plan 29yo F with PMHx IVDU and hepatitis C who presents from [facility] with elevated LFTs and imaging c/f [...] Auguste MD - 06/16/2019 9:38 AM EDT [facility] Inpatient Progress Note 06/16/2019 Tia Levin 1990 [id number] Assessment/Plan: Tia Levin is a 29 y.o. female with a history of amphetamine and heroine use who presented to [facility] 06/14/19 with complaints of abdominal pain and nausea. [facility] AST 1116 ALT 665 Alk phos 255 T bili 6.5 Lipase 8. CTAP revealed pericholecystic fluid vs GB wall thickening, no gallstones or hepatic pathology noted. Patient transferred to [facility] 06/14/2019 for further treatment and evaluation. 1. Acute Liver Injury: [facility] AST 1116 ALT 665 Alk phos [...] recent labs, diagnostics, vitals including pulseox, and j2ee consultant/other provider recommendations. No acute issues overnight [...] 2 Patient Name: Tia Levin MR #: [id number] Assessment/Plan: Elevated LFTs Assessment & Plan 29yo F with PMHx IVDU and hepatitis C who presents from [facility] with elevated LFTs and imaging c/f [...] Radiology, Medications and Transcriptions Aisha Hare CNP [facility] (for staff use only) * Indra Pruitt MD - 06/15/2019 10:43 AM EDT [facility] Inpatient Progress Note 06/15/2019 Tia Levin 1990 [id number] Assessment/Plan: Tia Levin is a 29 y.o. female with a history of amphetamine and heroine use who presented to [facility] 06/14/19 with complaints of abdominal pain and nausea. [facility] AST 1116 ALT 665 Alk phos 255 T bili 6.5 Lipase 8. CTAP revealed pericholecystic fluid vs GB wall thickening, no gallstones or hepatic pathology noted. Patient transferred to [facility] 06/14/2019 for further treatment and evaluation. 1. [...] have a PCP and refused a case aide consult for assistance. Verified insurance and Rx. [...] 10:48 AM EDT Patient on [facility] for follow-up. After provider review, I called and spoke with patient and changed her appointment to a phone visit, same date/time. In addition, as per provider request, I spoke with patient about going to any [facility] to have her lab taken so it will be available for review on 06/20/19 when she is called for her TCC appointment. Patient agreed with this plan. documented in this encounter* Anastasiia Garza CNP - 06/20/2019 1:16 PM EDT Attempted to call the patient for her tele-health visit today though she did not answer. Called [facility] number 5 times and home phone once, [...] daily (lemon water) Occasional iced coffee at [employer]. Was drinking a lot of Mountain Dew and Energy drinks prior to but stopped. Meals Away From Home - most days, fast food Past Medical History: Past Medical History: Diagnosis Date Anxiety Depression Infectious viral hepatitis hep c PTSD (Post-Traumatic Stress Disorder) History From: History obtained from patient and chart review. Current/Pertinent Medications: prescription for Current Outpatient Medications Ordered in [facility] Medication Sig Dispense Refill amoxicillin (AMOXIL) [...] daily . 90 tablet 3 No current [facility]-ordered facility-administered medications on file. SMBG Results: [...] mass index (BMI) of 40.0 or higher ([facility]) Farhat Vang MD [address] [facility] [address] [place] [address] Referral ID Status Reason Start Date Expiration Date Visits Requested Visits Authorized [id number] Authorized Specialty Services Required/Pat ient's Best Interest 04/16/2021 04/16/2022 1 1 Specialty Diagnoses / Procedures Referred By Contac t Referred To Contact Neurosurgery Diagnoses Chronic bilateral low back pain without sciatica Farhat Vang MD [address] [phone] Carina Kline MD [address] [place] [address] Referral ID Status Reason Start Date Expiration Date Visits Requested Visits Authorized [id number] Authorized Specialty Services Required/Pat ient's Best Interest 05/14/2021 05/14/2022 1 1 Specialty Diagnoses / Procedures Referred By Joey t Referred To Contact Rehabilitation Diagnoses Chronic bilateral low back pain without sciatica Farhat Vang MD [address] [id number] Referral ID Status Reason Start Date Expiration Date Visits Requested Visits Authorized [id number] Authorized Specialty Services Required/Pat ient's Best Interest 05/14/2021 05/14/2022 1 1 Specialty Diagnoses / Procedures Referred By Joey t Referred To Contact Diagnoses At risk for obstructive sleep apnea Farhat Vang MD [address] [phone] Gabriel Jacinto MD [address] [facility] [place] [address] Referral ID Status Reason Start Date Expiration Date Visits Requested Visits Authorized [id number] Authorized Specialty Services Required/Pat ient's Best Interest [...] in second trimester Lelo Gallegos MD [address] [place] [address] Nutrition Services [address] [place] [address] Reason Comments Gestational Diabetes Status Reason Specialty Diagnoses / Procedures Referred By Contact Referred To Contact Closed Endocrinology Diagnoses Diet controlled gestational diabetes mellitus (GDM) in second trimester Roslyn Stevenson MD [address] [address] Lelo Gallegos MD [address] [place] [address] Reason Comments Pharyngitis sore throat and head [...] mass index (BMI) of 40.0 or higher ([facility]) Farhat Vang MD [address] [facility] [address] [place] [address] Nutrition Services [address] [place] [address] Referral ID Status Reason Start Date Expiration Date Visits Requested Visits Authorized [id number] Authorized Specialty Services Required/Pat ient's Best Interest [...] and Physical Note 06/14/19 Tia Levin 1990 [id number] Assessment/Plan: Tia Levin is a 29 y.o. female with a history of amphetamine and heroine use who presented to [facility] 06/14/19 with complaints of abdominal pain and nausea. [facility] AST 1116 ALT 665 Alk phos 255 T bili 6.5 Lipase 8. CTAP revealed pericholecystic fluid vs GB wall thickening, no gallstones or hepatic pathology noted. Patient transferred to [facility] 06/14/2019 for further treatment and evaluation. 1. Elevated LFTs: [facility] AST 1116 ALT 665 Alk phos [...] amphetamine and heroine use who presented to [facility] 06/14/19 with complaints of abdominal pain and nausea. [facility] AST 1116 ALT 665 Alk phos 255 T bili 6.5 Lipase 8. CTAP revealed pericholecystic fluid vs GB wall thickening, no gallstones or hepatic pathology noted. Patient transferred to [facility] 06/14/2019 for further treatment and evaluation. Patient [...] labs, diagnostics, vitals including pulse ox, and j2ee consultant/other provider recommendations. Discussed with collaborating physician [...] file Gets together: Not on file Attends yarsani service: Not on file Active member of [...] reviewed, including documentation from previous hospitalizations and j2ee consultant recommendations as summarized below. Briefly, patient [...] Name: Tia Levin Admit Date: MR #: [id number] : 1990 Senior addendum 29 y/o F [...] Hepatitis C, and hx of presents to [facility] with jaundice and abdominal pain. -RUQ U/S [...] Fleming MD General Surgery, PGY 2 Pager# [phone] 06/16/2019, 10:43 AM After 5 PM and on Weekends, please page [phone] (Surgery Table Setter pet supplies salesperson) History of Present Illness: Patient presented for [...] file Gets together: Not on file Attends yarsani service: Not on file Active member of [...] patient. I discussed the case with the resident/EXTRACTOR OPERATOR SOLVENT PROCESS and agree with the findings and plan as documented in his/her note and/or any note I supplied. Associated Order(s): IP CONSULT TO GASTROENTEROLOGY GASTROENTEROLOGY CONSULT NOTE 4 Patient Name: Tia Levin Admit Date: MR #: [id number] : 1990 Physicians: Physician No (Family); Brie Moreno MD (Referring) Consult Ordered By: Franny Sims PA-C Assessment and Plan: Other Elevated LFTs Assessment & Plan 29yo F with PMHx IVDU and hepatitis C who presents from [facility] with elevated LFTs and imaging c/f [...] IVDU and hepatitis C who presents from [facility] with elevated LFTs and imaging c/f [...] she has been in and out of detention over past 3mo. She denies EtOH. Denies NSAID and significant Tylenol use. Denies new medications, herbal supplements, or recent ATBx. She denies any known FH of liver disease or GI related malignancies. Current LFTs include: AP 255, AST/ALT 665/1116, TB 6.5 (of note were normal in 02/2019). CTa/p w IVC at [facility] demonstrated moderate GBW thickening w pericholecystic [...] file Gets together: Not on file Attends yarsani service: Not on file Active member of [...] Invalid input(s): CO2, LABALBU Aisha Hare, MARK [facility] (for staff use only) Associated [...] reviewed, including documentation from previous hospitalizations and j2ee consultant recommendations as summarized below. Briefly, patient [...] IVDU and hepatitis C who presents from [facility] with elevated LFTs and imaging c/f [...] secti on and content) ED PROVIDER NOTE [facility] EMERGENCY DEPARTMENT NAME: Tia Levin AGE: 29 y.o. : 1990 VISIT DATE: 08/13/2019 CSN: [id number] PCP: Physician No Chief Complaint Patient presents with Drug Overdose This is a 29-year-old female brought to the ER via EMS for evaluation. Time my exam patient is alert and oriented. She states she was in the [employer] parking lot bent over in her car [...] file Gets together: Not on file Attends yarsani service: Not on file Active member of [...] nursing note reviewed. Exam conducted with a pvc monitor present (Nurses at the bedside). Constitutional: General: [...] for helping people with drug addiction. [address] [facility] [address] Contact information for after-discharge care Follow-up information [...] section and content) DATE CREATED AUTHOR 08/21/2019 [facility] DATE CREATED AUTHOR AUTHOR'S ORGANIZ ATION 02/15/2021 [facility] DATE CREATED AUTHOR AUTHOR'S ORGANIZ ATION 05/18/2021 [facility] DATE CREATED AUTHOR AUTHOR'S ORGANIZ ATION 07/02/2021 [facility] DATE CREATED AUTHOR AUTHOR'S ORGANIZ ATION 07/09/2021 [facility] DATE CREATED AUTHOR AUTHOR'S ORGANIZ ATION 07/05/2022 [facility] DATE CREATED AUTHOR AUTHOR'S ORGANIZ ATION 05/14/2023 [facility] DATE CREATED AUTHOR AUTHOR'S ORGANIZ ATION 10/07/2023 [facility] DATE CREATED AUTHOR AUTHOR'S ORGANIZ ATION 10/28/2023 [facility] EPIC DATE CREATED AUTHOR AUTHOR'S ORGANIZ ATION 10/29/2023 [facility] Ordered Prescriptions (unrec ognized section and [...]
Care Teams (unrecognized sec tion and content) Plant Equipment Engineer Relationship Specialty Start Date End Date No, Physician [facility] PCP - General 12/29/20 Germania Galaviz, FIBERGLASS TUBE MOLDER [address] [place] [address] Nurse Practitioner Obstetrics/Gynecology 11/01/19 Plant Equipment Engineer Relationship Specialty Start Date End Date No, Physician [facility] PCP - General 12/29/20 Germania Galaviz, FIBERGLASS TUBE MOLDER [address] [facility] [address] [place] [address] Nurse Practitioner Obstetrics/Gynecology 11/01/19 Plant Equipment Engineer Relationship Specialty Start Date End Date Farhat Vang MD [address] [facility] [address] [place] [address] PCP - General Family Medicine 04/16/21 Germania Galaviz, FIBERGLASS TUBE MOLDER [address] [place] [address] Nurse Practitioner Obstetrics/Gynecology 11/01/19 Radha Pantoja MD [address] [place] [address] Deliverer Merchandise Obstetrics/Gynecology 02/02/21 Yvonne Santos MD [address] [place] [address] Deliverer Merchandise Obstetrics/Gynecology 02/02/21 Regla Dias CN [address] [facility] [place] [address] Department Mgr Obstetrics/Gynecology 02/02/21 Plant Equipment Engineer Relationship Specialty Start Date End Date Farhat Vang MD [address] [facility] [address] [place] [address] PCP - General Family Medicine 04/16/21 Germania Galaviz, FIBERGLASS TUBE MOLDER [address] [place] [address] Nurse Practitioner Obstetrics/Gynecology 11/01/19 Radha Pantoja MD [address] [place] [address] Deliverer Merchandise Obstetrics/Gynecology 02/02/21 Yvonne Santos MD [address] [place] [address] Deliverer Merchandise Obstetrics/Gynecology 02/02/21 Regla Dias CN [address] [place] [address] Department Mgr Obstetrics/Gynecology 02/02/21 Plant Equipment Engineer Relationship Specialty Start Date End Date Farhat Vang MD [address] [address] PCP - General Family Medicine 04/16/21 Germania Galaviz, FIBERGLASS TUBE MOLDER [address] [facility] [place] [address] Nurse Practitioner Obstetrics/Gynecology 11/01/19 Radha Pantoja MD [address] [facility] [place] [address] Deliverer Merchandise Obstetrics/Gynecology 02/02/21 Yvonne Santos MD [address] [facility] [place] [address] Deliverer Merchandise Obstetrics/Gynecology 02/02/21 Regla Dias, CN [address] [facility] [place] [address] Department Mgr Obstetrics/Gynecology 02/02/21 Plant Equipment Engineer Relationship Specialty Start Date End Date Linda Sheppard DO [address] [facility] [place] [address] PCP - General Family Medicine 09/04/22 Plant Equipment Engineer Relationship Specialty Start Date End Date Linda Sheppard DO [address] [facility] [place] [address] PCP - General Family Medicine 09/04/22 Plant Equipment Engineer Relationship Specialty Start Date End Date Linda Sheppard, [address] [place] [address] PCP - General Family Medicine 09/04/22 FOR [...] BE BASED ON THE PRIMARY CLINICAL RECORDS. [facility]. provides no warranty or guarantee of the accuracy or completeness of information in this document.
[2023-11-04 11:09] VITALS: BP 106/64; PULSE 105
== END 2023-11-04 12:59 | disposition home or self-care (01) ==
LOC: FBCO 07:05 → FBC 10:52
PROVIDERS: Visit Provider Obstetrics & Gynecology
DX: O30.093 Twin pregnancy, unable to determine number of placenta and number of amniotic sacs, third trimester (principal)
CPT/HCPCS: 59025

== ENCOUNTER 2023-11-08 07:06 | Outpatient (OUT) | payer BC, SELFPAY ==
--- NOTE | 2023-11-08 | US_ITS ---
[address] [address] Patient Name: TIA MONROE MRN: [id number] date: 1990 Sex: F Assigned Patient Location: [facility] Current Patient Location: [facility] Accession/Order Number: [id number] Exam Date: 11/08/2023 07:35 Report Date: 11/08/2023 08:39 At the request of: DARWIN MONROY Procedure: US OB BPP w non-stress EXAMINATION: US OB BPP w non-stress, US OB BPP w non-stress HISTORY:MONOCHORIONIC DIAMNIOTIC TWIN COMPARISON: No relevant comparison available. TECHNIQUE: Ultrasound biophysical profile was performed in the radiology department. BREATHING MOVEMENTS: 2; 2 GROSS BODY MOVEMENTS: 2; 2 TONE: 2; 2 QUALITATIVE AMNIOTIC FLUID VOLUME: 2; 2 PRESENTATION: Cephalic: Breech HEART RATE: 129 bpm; 148 bpm AMNIOTIC FLUID VOLUME: 7.7 x 3.5 cm pocket; 8.5 x 6.3 cm pocket GESTATIONAL AGE: 31 weeks 5 days US/US OB BPP w non-stress IMPRESSION: Total biophysical profile score: Baby A: 8 Baby B: 8 Electronically authenticated by: BETTYE DANIELS Date: 11/08/2023 08:39
--- NOTE | 2023-11-08 | US_ITS ---
[address] [address] Patient Name: TIA MONROE MRN: [id number] date: 1990 Sex: F Assigned Patient Location: [facility] Current Patient Location: [facility] Accession/Order Number: [id number] Exam Date: 11/08/2023 07:35 Report Date: 11/08/2023 08:39 At the request of: DARWIN MONROY Procedure: US OB BPP w non-stress EXAMINATION: US OB BPP w non-stress, US OB BPP w non-stress HISTORY:MONOCHORIONIC DIAMNIOTIC TWIN COMPARISON: No relevant comparison available. TECHNIQUE: Ultrasound biophysical profile was performed in the radiology department. BREATHING MOVEMENTS: 2; 2 GROSS BODY MOVEMENTS: 2; 2 TONE: 2; 2 QUALITATIVE AMNIOTIC FLUID VOLUME: 2; 2 PRESENTATION: Cephalic: Breech HEART RATE: 129 bpm; 148 bpm AMNIOTIC FLUID VOLUME: 7.7 x 3.5 cm pocket; 8.5 x 6.3 cm pocket GESTATIONAL AGE: 31 weeks 5 days US/US OB BPP w non-stress IMPRESSION: Total biophysical profile score: Baby A: 8 Baby B: 8 Electronically authenticated by: BETTYE DANIELS Date: 11/08/2023 08:39
--- OUTSIDE RECORDS SUMMARY | 2023-11-08 07:09 | XMS_ITS | CCD ---
Author Organization [facility] ion Partnership [facility] Care Team Providers Care Caption Writer Name Role Phone Unavailable Primary Care Provider Unavailabl e No, Physician Primary Care Provider Unavailabl e HODA MADERA Unavailable Unavailable Primary Care Provider Unavailabl e No, Physician Primary Care Provider Unavailabl Germania Becerra Unavailable Roslyn Stevenson Unavailable Radha Pantoja Unavailable [phone] Yvonne Santos Unavailable [phone] Larissa, Regla Corina Unavailable [phone] No, Physician Primary Care Provider UnavailGeramnia Rodriguez CNP Unavailable Roslyn Stevenson MD Unavailable [...] day(s), # 14 tab(s), Refills(s) 0, Pharmacy: [email or web address], 160, cm, 05/11/23 21:53:00 EST, Height/Length [...] oral solution (2 sources) alpha-Adrenergic Agonist, Uncompetitive H-nmiqxf-R-aspartate Receptor Antagonist, Sigma-1 Agonist Start: End: take 5 mL by mouth four times daily as needed for cough brompheniramine-pse udoephedrine-DM (BROMFED DM) 2-30-10 MG/5ML syrup Take 5 mLs by mouth 4 times daily as needed for Congestion or Cough 240 mL 1 10/12/2021 11/11/2021 Active Start: 11-07-2020 End: 11-12-2020 take 5 mL by mouth three times daily as needed for cough fhyjytgpzkfkhtb-wogvcuxcblprzhq-ND 2-30- 10 MG/5ML syrup Take 5 mLs [...] 0, (swish and spit; do not swallow), [facility] #16, 160, cm, 05/11/23 21:53:00 EST, [...] Active Dextromethorphan / guaiFENesin (2 sources) Uncompetitive M-vryzle-P-asparta te Receptor Antagonist, Sigma-1 Agonist End: 06-24-2020 [...] day(s), # 15 tab(s), Refills(s) 0, Pharmacy: [email or web address], 160, cm, 05/13/23 11:33:00 EST, Height/Length [...] for Pain. 0 05/10/2023 Discontinued (LIST CLEANUP) [id number] 200 actuat albuterol 0.09 mg/actuat metered dose [...] Oral, Every 4 hours PRN, indigestion, Starting [facility] 06/14/19 at 0831 azithromycin 250 mg [...] Oral, Daily PRN, constipation, For constipation., Starting [facility] 06/14/19 at 0831 naloxone (NARCAN) injection [...] [Accidental overdose of heroin, initial encounter ([facility])] Episodic Substance-related disorders (1 source) Opioid abuse, [...] l admission (14 sources) Admission statuses; Translations: [[facility] (current) use of opiate analgesic] Onset: 05-18-2019 [...] Coag (Bld) [Time] 29.8 s Normal 23.9-33.8 [facility] Comment on above: Result Comment: IV Heparin Therapy Range: 62.0-94.0 Performed By: #### P T, PTT, BMP, CDP, TROPI #### [facility] [address] [place] [address] Burr Bench Hand: Guero Sandoval MD Basic Metabolic Profon 10-04 Anion gap [Moles/Vol] 13 mmol/L Normal - [facility] Comment on above: Performed By: #### P T, PTT, BMP, CDP, TROPI #### [facility] [address] [place] [address] Burr Bench Hand: Guero Sandoval MD BUN/CRE Ratio Result cannot be calculated, Creatinine below linear range. Normal - [facility] Comment on above: Performed By: #### P T, PTT, BMP, CDP, TROPI #### [facility] [address] [place] [address] Burr Bench Hand: Guero Sandoval MD Calcium [Mass/Vol] 8.7 mg/dL Normal 8.6-10.4 [facility] Comment on above: Performed By: #### P T, PTT, BMP, CDP, TROPI #### [facility] [address] [place], [place] [phone] Burr Bench Hand: Guero Sandoval MD Chloride [Moles/Vol] 105 mmol/L Normal 98-107 [facility] Comment on above: Performed By: #### P T, PTT, BMP, CDP, TROPI #### [facility] [address] [place] [address] Burr Bench Hand: Guero Sandoval MD CO2 [Moles/Vol] 18 mmol/L Low 20-31 [facility] Comment on above: Performed By: #### P T, PTT, BMP, CDP, TROPI #### [facility] [address] [place] [address] Burr Bench Hand: Guero Sandoval MD Creatinine [Mass/Vol] mg/dL Low 0.5-0.9 [facility] Comment on above: Performed By: #### P T, PTT, BMP, CDP, TROPI #### [facility] [address] [place] [address] Burr Bench Hand: Guero Sandoval MD eGFR Can not be calculated Normal >60 [facility] Comment on above: Result Comment: These results [...] P T, PTT, BMP, CDP, TROPI #### [facility] [address] [place] [address] Burr Bench Hand: Guero Sandoval MD Glucose [Mass/Vol] 111 mg/dL High 70-99 [facility] Comment on above: Performed By: #### P T, PTT, BMP, CDP, TROPI #### [facility] [address] [place], [place] [phone] Burr Bench Hand: Guero Sandoval MD Potassium [Moles/Vol] 3.8 mmol/L Normal 3.7-5.3 [facility] Comment on above: Performed By: #### P T, PTT, BMP, CDP, TROPI #### [facility] [address] [place], [place] [phone] Burr Bench Hand: Guero Sandoval MD Sodium [Moles/Vol] 136 mmol/L Normal 135-144 [facility] Comment on above: Performed By: #### P T, PTT, BMP, CDP, TROPI #### [facility] [address] [place] [address] Burr Bench Hand: Guero Sandoval MD Urea nitrogen [Mass/Vol] 6 mg/dL Normal 6-20 [facility] Comment on above: Performed By: #### P T, PTT, BMP, CDP, TROPI #### [facility] [address] [place] [address] Burr Bench Hand: Guero Sandoval MD Brain Natri. Peptideon 10-04 Pro-BNP <36 Normal 0-300 [facility] Comment on above: Result Comment: An a ge-independent cutoff point of 300 pg/ml has a 98% negative predictive value excluding acute heart failure. Performed By: #### B SECURITY AMBASSADOR, TROPI #### [email or web address] [address] [place] [address] Burr Bench Hand: Thor Hernández MD CBC with Diffon 10-05-2023 Abs. Basophil 0.04 k/uL Normal 0.00-0.20 [facility] Comment on above: Performed By: #### P T, PTT, BMP, CDP, TROPI #### [facility] [address] [place] [address] Burr Bench Hand: Guero Sandoval MD Abs.Imm.Granulocyte 0.16 k/uL Normal 0.00-0.30 [facility] Comment on above: Performed By: #### P T, PTT, BMP, CDP, TROPI #### [facility] [address] [place] [address] Burr Bench Hand: Guero Sandoval MD Abs.Neutrophil (Seg) 8.05 k/uL High 2.5-7.0 [facility] Comment on above: Performed By: #### P T, PTT, BMP, CDP, TROPI #### [facility] [address] [place] [address] Burr Bench Hand: Guero Sandoval MD Basophils/100 WBC (Bld) 0 % Normal 0-2 [facility] Comment on above: Performed By: #### P T, PTT, BMP, CDP, TROPI #### [facility] [address] [place] [address] Burr Bench Hand: Guero Sandoval MD Eosinophils (Bld) [#/Vol] 0.08 10*3/uL Normal 0.00-0.4 0 [facility] Comment on above: Performed By: #### P T, PTT, BMP, CDP, TROPI #### [facility] [address] [place] [address] Burr Bench Hand: Guero Sandoval MD Eosinophils/100 WBC (Bld) 1 % Normal 0-5 [facility] Comment on above: Performed By: #### P T, PTT, BMP, CDP, TROPI #### [facility] [address] [place] [phone] Burr Bench Hand: Guero Sandoval MD Erythrocyte distribution width (RBC) [Ratio] 13.1 % Normal 12.1-15.2 [facility] Comment on above: Performed By: #### P T, PTT, BMP, CDP, TROPI #### [facility] [address] [place] [phone] Burr Bench Hand: Gureo Sandoval MD Hematocrit (Bld) [Volume fraction] 28.8 % Low 36.0-46.0 [facility] Comment on above: Performed By: #### P T, PTT, BMP, CDP, TROPI #### [facility] [address] [place] [phone] Burr Bench Hand: Guero Sandoval MD Hemoglobin (Bld) [Mass/Vol] 9.8 g/dL Low 12.0-16.0 [facility] Comment on above: Performed By: #### P T, PTT, BMP, CDP, TROPI #### [facility] [address] [place] [address] Burr Bench Hand: Guero Sandoval MD Immature granulocytes/100 WBC (Bld) 2 % Normal 0-5 [facility] Comment on above: Performed By: #### P T, PTT, BMP, CDP, TROPI #### [facility] [address] [place] [phone] Burr Bench Hand: Guero Sandoval MD Lymphocytes (Bld) [#/Vol] 1.61 10*3/uL Normal 1.00-4.8 0 [facility] Comment on above: Performed By: #### P T, PTT, BMP, CDP, TROPI #### [facility] [address] [place] [address] Burr Bench Hand: Guero Sandoval MD Lymphocytes/100 WBC (Bld) 15 % Normal 15-40 [facility] Comment on above: Performed By: #### P T, PTT, BMP, CDP, TROPI #### [facility] [address] [place] [phone] Burr Bench Hand: Guero Sandoval MD MCH (RBC) [Entitic mass] 27.7 pg Normal 26.0-34.0 [facility] Comment on above: Performed By: #### P T, PTT, BMP, CDP, TROPI #### [facility] [address] [place] [address] Burr Bench Hand: Guero Sandoval MD MCHC (RBC) [Mass/Vol] 34.0 g/dL Normal 31.0-37.0 [facility] Comment on above: Performed By: #### P T, PTT, BMP, CDP, TROPI #### [facility] [address] [place] [phone] Burr Bench Hand: Guero Sandoval MD MCV (RBC) [Entitic vol] 81.4 fL Normal 80.0-100.0 [facility] Comment on above: Performed By: #### P T, PTT, BMP, CDP, TROPI #### [facility] [address] [place] [address] Burr Bench Hand: Guero Sandoval MD Monocytes (Bld) [#/Vol] 0.77 10*3/uL Normal 0.00-1.00 [facility] Comment on above: Performed By: #### P T, PTT, BMP, CDP, TROPI #### [facility] [address] [place] [address] Burr Bench Hand: Guero Sandoval MD Monocytes/100 WBC (Bld) 7 % Normal 4-8 M [facility] Comment on above: Performed By: #### P T, PTT, BMP, CDP, TROPI #### [facility] [address] [place] [address] Burr Bench Hand: Guero Sandoval MD Neutrophil (Seg) 75 % Normal 47-75 [facility] Comment on above: Performed By: #### P T, PTT, BMP, CDP, TROPI #### [facility] [address] [place] [address] Burr Bench Hand: Guero Sandoval MD Platelet mean volume (Bld) [Entitic vol] 10.2 fL Normal 6.0-12.0 [facility] Comment on above: Performed By: #### P T, PTT, BMP, CDP, TROPI #### [facility] [address] [place] [address] Burr Bench Hand: Guero Sandoval MD Platelets (Bld) [#/Vol] 275 10*3/uL Normal 140-450 [facility] Comment on above: Performed By: #### P T, PTT, BMP, CDP, TROPI #### [facility] [address] [place] [address] Burr Bench Hand: Guero Sandoval MD RBC (Bld) [#/Vol] 3.54 10*6/uL Low 4.00-5.20 [facility] Comment on above: Performed By: #### P T, PTT, BMP, CDP, TROPI #### [facility] [address] [place] [address] Burr Bench Hand: Guero Sandoval MD WBC (Bld) [#/Vol] 10.7 10*3/uL Normal 3.5-11.0 [facility] Comment on above: Performed By: #### P T, PTT, BMP, CDP, TROPI #### [facility] [address] [place] [address] Burr Bench Hand: Guero Sandoval MD CT CHEST PULMONARY EMBOLISM [...] Carlos Petersen MD 10/05/23 Final result Normal [facility] Liver Profileon 10-05-2023 Albumin [Mass/Vol] 3.0 g/dL Low 3.5-5.2 [facility] Comment on above: Performed By: #### L IVP #### [facility] [address] [place] [address] Burr Bench Hand: Guero Sandoval MD Alkaline Phos 74 U/L Normal 35-104 [facility] Comment on above: Performed By: #### L IVP #### [facility] [address] [place] [address] Burr Bench Hand: Guero Sandoval MD ALT [Catalytic activity/Vol] U/L Low 5-33 [facility] Comment on above: Performed By: #### L IVP #### [facility] [address] [place], [place] [phone] Burr Bench Hand: Guero Sandoval MD AST [Catalytic activity/Vol] 9 U/L Normal <32 [facility] Comment on above: Performed By: #### L IVP #### [facility] [address] [place], [place] [phone] Burr Bench Hand: Guero Sandovla MD Bilirubin [Mass/Vol] 0.3 mg/dL Normal 0.3-1.2 [facility] Comment on above: Performed By: #### L IVP #### [facility] [address] [place], [place] [phone] Burr Bench Hand: Guero Sandoval MD Bilirubin, Indirect Can not be calculated Normal 0.0-1.0 [facility] Comment on above: Performed By: #### L IVP #### [facility] [address] [place], [place] [phone] Burr Bench Hand: Guero Sandoval MD Bilirubin.indirect [Mass/Vol] mg/dL Normal <0.3 [facility] Comment on above: Performed By: #### L IVP #### [facility] [address] [place], [place] [phone] Burr Bench Hand: Guero Sandoval MD Protein [Mass/Vol] 5.9 g/dL Low 6.4-8.3 [facility] Comment on above: Performed By: #### L IVP #### [facility] [address] [place], [place] [phone] Burr Bench Hand: Guero Sandoval MD PTon 10-05-2023 INR Coag (PPP) [Relative time] 1.0 {INR} Normal [facility] Comment on above: Result Comment: Therapeutic Range: Moderate Anticoagulant Intensity: INR = 2.0-3.0 High Anticoagulant Intensity: INR = 2.5-3.5 Performed By: #### P T, PTT, BMP, CDP, TROPI #### [facility] [address] [place] [address] Burr Bench Hand: Guero Sandoval MD PT Coag (PPP) [Time] 13.6 s Normal 11.5-14.2 [facility] Comment on above: Performed By: #### P T, PTT, BMP, CDP, TROPI #### [facility] [address] [place] [address] Burr Bench Hand: Guero Sandoval MD Troponinon 10-05-2023 Troponin, High Sens <6 Normal 0-14 [facility] Comment on above: Result Comment: High Sensitivity Troponin values cannot be compared with other Troponin methodologies. Performed By: #### B SECURITY AMBASSADOR, TROPI #### [address] [address] Burr Bench Hand: Thor Hernández MD Troponin, High Sens <6 Normal 0-14 [facility] Comment on above: Result Comment: High Sensitivity Troponin values cannot be compared with other Troponin methodologies. Performed By: #### P T, PTT, BMP, CDP, TROPI #### [facility] [address] [place] [address] Burr Bench Hand: Guero Sandoval MD UA w/Reflex Cultureon 2023 Bilirubin, SemiQt,Ur Negative Normal NEG [facility] Comment on above: Performed By: #### U RICHYO, UAX #### [facility] [address] [place] [address] Burr Bench Hand: Thor Hernández MD Blood, Urine Negative Normal NEG [facility] Comment on above: Performed By: #### U RICHYO, UAX #### [email or web address] [address] [place] [address] [phone] Burr Bench Hand: Thor Hernández MD Clarity (U) Cloudy Abnormal CLEAR [facility] Comment on above: Performed By: #### U RICHYO, UAX #### [email or web address] [address] [place] [address] Burr Bench Hand: Thor Hernández MD Color (U) Yellow Normal YEL [facility] Comment on above: Performed By: #### U MICAO, UAX #### [facility] [address] [place] [address] Burr Bench Hand: Thor Hernández MD Glucose Ql (U) 1+ mg/dL Abnormal NEG [facility] Comment on above: Performed By: #### U MICAO, UAX #### [facility] [address] [place] [address] Burr Bench Hand: Thor Hernández MD Ketones Ql (U) TRACE Abnormal NEG [facility] Comment on above: Performed By: #### U MICAO, UAX #### [address] [address] Burr Bench Hand: Thor Hernández MD Leukocyte esterase Test strip Ql (U) Negative Normal NEG [facility] Comment on above: Performed By: #### U MICAO, UAX #### [address] [address] Burr Bench Hand: Thor Hernández MD Nitrite,Ur Negative Normal NEG [facility] Comment on above: Performed By: #### U MICAO, UAX #### [address] [address] Burr Bench Hand: Thor Hernández MD PH,Ur 6.0 Normal 5.0-8.0 [facility] Comment on above: Performed By: #### U MICAO, UAX #### [email or web address] [address] [place] [address] Burr Bench Hand: Thor Hernández MD Protein Ql (U) TRACE Abnormal NEG [facility] Comment on above: Performed By: #### U MICAO, UAX #### [email or web address] [address] [place] [address] Burr Bench Hand: Thor Hernández MD Spec. Welda,Ur 1.028 Normal 1.005-1.030 [facility] Comment on above: Performed By: #### U KAYDEN, UAX #### [address] [address] Burr Bench Hand: Thor Hernández MD Urobilinogen,Ur Normal Normal 0.0-1.0 [facility] Comment on above: Performed By: #### U RICHYO, UAX #### [address] [address] Burr Bench Hand: Thor Hernández MD Urinalysis,Microon 4 Bacteria MODERATE Abnormal NONE [facility] Comment on above: Performed By: #### U KAYDEN, UAX #### [address] [address] Burr Bench Hand: Thor Hernández MD Casts 2 TO 5 HYALINE Normal 0-8 [facility] Comment on above: Result Comment: Refe rence range defined for non-centrifuged specimen. Performed By: #### U KAYDEN, UAX #### [address] [address] Burr Bench Hand: Thor Hernández MD Epithelial cells LM Ql (Urine sed) 20 TO 50 Normal 0-5 [facility] Comment on above: Performed By: #### U RICHYO, UAX #### [email or web address] [address] [place] [address] Burr Bench Hand: Thor Hernández MD Urine RBC's 0 TO 2 Normal 0-4 [facility] Comment on above: Result Comment: Refe rence range defined for non-centrifuged specimen. Performed By: #### U RICHYO, UAX #### [address] [address] Burr Bench Hand: Thor Hernández MD Urine WBC's 5 TO 10 Normal 0-5 [facility] Comment on above: Performed By: #### U MICAO, UAX #### [facility] [address] [place] [address] Burr Bench Hand: Thor Hernández MD AFP, Maternalon 07-28-2023 Determined by Ultrasound Normal [facility] Comment on above: Performed By: #### A AFPM #### [facility] [address] [place] [address] Burr Bench Hand: Thor Hernández MD [address] [phone] Burr Bench Hand: Tim Vizcarra MD #### FT4, TSH, FT3 #### [address] [address] Burr Bench Hand: Thor Hernández MD Due Date SEE NOTE Normal [facility] Comment on above: Result Comment: Resu lts for Estimated Due Date: 01 06 24 Performed By: #### A AFPM #### [address] [address] Burr Bench Hand: Thor Hernández MD [address] [address] Burr Bench Hand: Tim Vizcarra MD #### FT4, TSH, FT3 #### [facility] [address] [place] [address] Burr Bench Hand: Thor Hernández MD Family History No Normal [facility] Comment on above: Performed By: #### A AFPM #### [facility] [address] [place] [address] Burr Bench Hand: Thor Hernández MD [facility] [address] [place] [address] Burr Bench Hand: Tim Vizcarra MD #### FT4, TSH, FT3 #### [facility] [address] [place] [address] Burr Bench Hand: Thor Hernández MD Gestat Age (exact) 16 wks, 4 days Normal [facility] Comment on above: Performed By: #### A AFPM #### [address] [address] Burr Bench Hand: Thor Hernández MD [address] [phone] Burr Bench Hand: Tim Vizcarra MD #### FT4, TSH, FT3 #### [address] [address] Burr Bench Hand: Thor Hernández MD Ins Req Matern Diab No Normal [facility] Comment on above: Performed By: #### A AFPM #### [address] [address] Burr Bench Hand: Thor Hernández MD [address] [address] Burr Bench Hand: Tim Vizcarra MD #### FT4, TSH, FT3 #### [address] [address] Burr Bench Hand: Thor Hernández MD Interpretation Screen Neg Normal [facility] Comment on above: Result Comment: (NOT E) INTERPRETATION: SCREEN NEGATIVE for open spina bifida Neural Tube Defects (NTD) Negative Pre-Test Post-Test Cutoff Neural Tube Defects Risks 1:452 1:3230 1:103 Comments: The risk of an open neural tube defect is less than the twin screening cut-off. This test was developed and its performance characteristics determined by [employer]. It has not been cleared or approved by the [place] Food and Drug Administration. This test was performed in a CLIA certified laboratory and is intended for clinical purposes. Performed By: #### A AFPM #### [address] [address] Burr Bench Hand: Thor Hernández MD [address] [address] Burr Bench Hand: Tim Vizcarra MD #### FT4, TSH, FT3 #### [facility] [address] [place] [address] Burr Bench Hand: Thor Hernández MD [age] [facility] Comment on above: Performed By: #### A AFPM #### [facility] [address] [place] [address] Burr Bench Hand: Thor Hernández MD [facility] [address] [place], [place] [phone] Burr Bench Hand: Tim Vizcarra MD #### FT4, TSH, FT3 #### [address] [address] Burr Bench Hand: Thor Hernández MD Maternal Race Nonblack [facility] Comment on above: Performed By: #### A AFPM #### [address] [address] Burr Bench Hand: Thor Hernández MD [facility] [address] [place], [place] [phone] Burr Bench Hand: Tim Vizcarra MD #### FT4, TSH, FT3 #### [address] [address] Burr Bench Hand: Thor Hernández MD Maternal Weight 239.0 lbs. [facility] Comment on above: Performed By: #### A AFPM #### [facility] [address] [place] [address] Burr Bench Hand: Thor Hernández MD [facility] [address] [place] [address] Burr Bench Hand: Tim Vizcarra MD #### FT4, TSH, FT3 #### [facility] [address] [place] [address] Burr Bench Hand: Thor Hernández MD MoM for AFP 1.71 Normal [facility] Comment on above: Performed By: #### A AFPM #### [address] [address] Burr Bench Hand: Thor Hernández MD [facility] [address] [place] [address] Burr Bench Hand: Tim Vizcarra MD #### FT4, TSH, FT3 #### [address] [address] Burr Bench Hand: Thor Hernández MD Number of Fetuses Twins Normal [facility] Comment on above: Performed By: #### A AFPM #### [address] [address] Burr Bench Hand: Thor Hernández MD [address] [phone] Burr Bench Hand: Tim Vizcarra MD #### FT4, TSH, FT3 #### [address] [address] Burr Bench Hand: Thor Hernández MD Patient's AFP 46 ng/mL Normal [facility] Comment on above: Performed By: #### A AFPM #### [address] [address] Burr Bench Hand: Thor Hernández MD [address] [address] Burr Bench Hand: Tim Vizcarra MD #### FT4, TSH, FT3 #### [address] [address] Burr Bench Hand: Thor Hernández MD Smoking Unknown [facility] Comment on above: Performed By: #### A AFPM #### [address] [address] Burr Bench Hand: Thor Hernández MD [address] [place] [address] Burr Bench Hand: Tim Vizcarra MD #### FT4, TSH, FT3 #### [address] [address] Burr Bench Hand: Thor Hernández MD Specimen See Note [facility] Comment on above: Result Comment: (NOT E) Initial sample Performed By: [email or web address] [address] [place] [address] Home Care Provider: Morro Modi MD, PhD CLIA Number: [id number] Performed By: #### A AFPM #### [address] [address] Burr Bench Hand: Thor Hernández MD [address] [address] Burr Bench Hand: Tim Vizcarra MD #### FT4, TSH, FT3 #### [address] [address] Burr Bench Hand: Thor Hernández MD [facility] 07-27-2023 Current Smoking INFORMATION NOT PROVIDED [facility] Comment on above: Performed By: #### A AFPM #### [address] [address] Burr Bench Hand: Thor Hernández MD [address] [address] Burr Bench Hand: Tim Vizcarra MD #### FT4, TSH, FT3 #### [address] [address] Burr Bench Hand: Thor Hernández MD [facility] Comment on above: Performed By: #### A AFPM #### [address] [address] Burr Bench Hand: Thor Hernández MD [address] [address] Burr Bench Hand: Tim Vizcarra MD #### FT4, TSH, FT3 #### [address] [address] Burr Bench Hand: Thor Hernández MD Diabetic Negative [facility] Comment on above: Performed By: #### A AFPM #### [address] [address] Burr Bench Hand: Thor Hernández MD [facility] [address] [place] [address] Burr Bench Hand: Tim Vizcarra MD #### FT4, TSH, FT3 #### [address] [address] Burr Bench Hand: Thor Hernández MD Donor Egg INFORMATION NOT PROVIDED [facility] Comment on above: Performed By: #### A AFPM #### [address] [address] Burr Bench Hand: Thor Hernández MD [address] [id number] Burr Bench Hand: Tim Vizcarra MD #### FT4, TSH, FT3 #### [address] [address] Burr Bench Hand: Thor Hernández MD Estimated Due Date 01/06/2024 [facility] Comment on above: Performed By: #### A AFPM #### [address] [address] Burr Bench Hand: Thor Hernández MD [address] [address] Burr Bench Hand: Tim Vizcarra MD #### FT4, TSH, FT3 #### [address] [address] Burr Bench Hand: Thor Hernández MD Family History Negative [facility] Comment on above: Performed By: #### A AFPM #### [address] [address] Burr Bench Hand: Thor Hernández MD [address] [address] Burr Bench Hand: Tim Vizcarra MD #### FT4, TSH, FT3 #### [address] [address] Burr Bench Hand: Thor Hernández MD In Vitro Fertalizat INFORMATION NOT PROVIDED [facility] Comment on above: Performed By: #### A AFPM #### [address] [address] Burr Bench Hand: Thor Hernández MD [address] [address] Burr Bench Hand: Tim Vizcarra MD #### FT4, TSH, FT3 #### [address] [address] Burr Bench Hand: Thor Hernández MD LMP date 2023 [facility] Comment on above: Performed By: #### A AFPM #### [address] [address] Burr Bench Hand: Thor Hernández MD [address] [address] Burr Bench Hand: Tim Vizcarra MD #### FT4, TSH, FT3 #### [address] [address] Burr Bench Hand: Thor Hernández MD Maternal date 1990 [facility] Comment on above: Performed By: #### A AFPM #### [address] [address] Burr Bench Hand: Thor Hernández MD [address] [address] Burr Bench Hand: Tim Vizcarra MD #### FT4, TSH, FT3 #### [address] [address] Burr Bench Hand: Thor Hernández MD Maternal Weight 239 Normal [facility] Comment on above: Performed By: #### A AFPM #### [address] [address] Burr Bench Hand: Thor Hernández MD [facility] [address] [place] [address] Burr Bench Hand: Tim Vizcarra MD #### FT4, TSH, FT3 #### [address] [address] Burr Bench Hand: Thor Hernández MD Monochorionic Twins Positive Normal [facility] Comment on above: Performed By: #### A AFPM #### [address] [address] Burr Bench Hand: Thor Hernández MD [address] [address] Burr Bench Hand: Tim Vizcarra MD #### FT4, TSH, FT3 #### [address] [address] Burr Bench Hand: Thor Hernández MD Patient Weight Units LBS Normal [facility] Comment on above: Performed By: #### A AFPM #### [address] [address] Burr Bench Hand: Thor Hernández MD [facility] [address] [place] [address] Burr Bench Hand: Tim Vizcarra MD #### FT4, TSH, FT3 #### [address] [address] Burr Bench Hand: Thor Hernández MD Race (Maternal) Normal [facility] Comment on above: Performed By: #### A AFPM #### [address] [address] Burr Bench Hand: Thor Hernández MD [address] [address] Burr Bench Hand: Tim Vizcarra MD #### FT4, TSH, FT3 #### [address] [address] Burr Bench Hand: Thor Hernández MD Repeat Specimen INFORMATION NOT PROVIDED Normal [facility] Comment on above: Performed By: #### A AFPM #### [address] [address] Burr Bench Hand: Thor Hernández MD [address] [id number] Burr Bench Hand: Tim Vizcarra MD #### FT4, TSH, FT3 #### [address] [address] Burr Bench Hand: Thor Hernández MD Valproic/Carbamazep INFORMATION NOT PROVIDED Normal [facility] Comment on above: Performed By: #### A AFPM #### [address] [address] Burr Bench Hand: Thor Hernández MD [address] [address] Burr Bench Hand: Tim Vizcarra MD #### FT4, TSH, FT3 #### [address] [address] Burr Bench Hand: Thor Hernández MD Thyroxine, Freeon 07-27-2023 Thyroxine, Free 1.0 ng/dL Normal 0.92-1.68 [facility] Comment on above: Performed By: #### A AFPM #### [address] [address] Burr Bench Hand: Thor Hernández MD [facility] [address] [place] [address] Burr Bench Hand: Tim Vizcarra MD #### FT4, TSH, FT3 #### [address] [address] Burr Bench Hand: Thor Hernández MD Protein,Tot,Nondalton Uron 2023 Creatinine [Mass/Vol] 273.0 mg/dL High 28.0-217.0 Me [facility] Comment on above: Performed By: #### U RTPRT #### [address] [address] Burr Bench Hand: Thor Hernández MD Tot Prot. Conc. 21 mg/dL Normal [facility] Comment on above: Result Comment: No n ormal range established. Performed By: #### U RTPRT #### [address] [address] Burr Bench Hand: Thor Hernández MD TP/Cre Ratio 0.08 Normal [facility] Comment on above: Performed By: #### U RTPRT #### [address] [address] Burr Bench Hand: Thor Hernández MD T3, Freeon 0 Free T3 [Mass/Vol] 3.40 pg/mL Normal 2.00-4.40 [facility] Comment on above: Performed By: #### A AFPM #### [address] [address] Burr Bench Hand: Thor Hernández MD [facility] [address] [place] [address] Burr Bench Hand: Tim Vizcarra MD #### FT4, TSH, FT3 #### [address] [address] Burr Bench Hand: Thor Hernández MD Thyroid Stim. Horm.on 2023 Thyroid Stim. Horm. <0.01 Low 0.27-4.20 [facility] Comment on above: Performed By: #### A AFPM #### [facility] [address] [place] [address] Burr Bench Hand: Thor Hernández MD [address] [address] Burr Bench Hand: Tim Vizcarra MD #### FT4, TSH, FT3 #### [facility] [address] [place] [address] Burr Bench Hand: Thor Hernández MD ED Note-Physicianon 05-14-19 ED [...] see dentistry until she is cleared by [facility]. She does not have an appointment for [facility] to next week. She has no OB [...] day(s), # 15 tab(s), Refills(s) 0, Pharmacy: [facility], 160, cm, 05/13/23 11:33:00 EST, Height/Length [...] Oral, q6hr Follow-up With When Contact Information [employer] In 3 days 05/16/2023 EDT [address] [place] [address]- Business (1) Additional Instructions: Dentistry follow-up Patient [...] made to ensure accuracy, however, inadvertently computerized multimedia instructional designer mistakes may be present. Appropriate healthcare PPE was used in evaluating this patient. Problem List/Past Medical History Ongoing Acute hepatitis C Anxiety Apnea, sleep Dental caries PCOS (polycystic ovarian syndrome) Historical No qualifying data Procedure/Surgical History Delivery. Medications Inpatient ampicillin-sulbacta m additive + Sodium Chloride 0.9% intravenous solution 100 (more content not included)... [facility] Comment on above: Result Comment: Elec tronically Signed By: Greg Stratton PA-C\.br\Date and Time Signed: 05/13/23 12:45 EST\.br\Electronically Co-Signed By: Jonathan Martinez DO\.br\Date and Time Co-Signed: 05/14/23 07:40 EST Consent for Treatmenton Consent for Treatment [id number] EC#1.00TIFF [facility] Discharge Instructionson Discharge Instructions [id number] 40 [id number] 53#1.00TIFF Normal [facility] ED Clinical Summaryon 2023 ED Clinical Summary [address] [address] ED Clinical Summary Person Information Name: TIA MONROE/[facility] Age: 33 Years : 1990 Sex: Female Language: Comoran PCP: Linda Sheppard DO Marital Status: Visit [...] 13:02:19 05/13/2023 13:02:19 05/13/2023 13:02:19 ADDRESS: [address] [facility] [id number] PHYS DOC NOTES: MEDICAL INFORMATION: Prescriptions Given: New Medications [facility], [address] [place], [place] [id number], [phone] oxycodone (oxyCODONE 5 mg Tab) 1 Tablets [...] Dental Abscess Follow up: With: Address: When: [place] [phone] Business (1) In 3 days 05/16/2023 Comments: Dentistry follow-up DIAGNOSIS: Dental abscess Normal [facility] ED Patient Education Noteon 05-13-2023 ED Patient [...] these instructions at home: Medicines ? Take ycfz-fkp-ubmeqma and prescription medicines only as told by [...] mouth. ? (more content not included)... Normal [facility] ED Patient Summaryon 024 ED Patient Summary [address] [address] Patient Discharge Instructions Person Information Name: TIA MONROE Age: 33 Years Arrival Date: 05/13/2023 11:19:01 Discharge Diagnosis: Dental abscess Primary Care Physician: Linda Sheppard DO Provider Information Primary Provider: Jonathan Martinez DO Advanced [employer] Marshal:Greg Stratton PA-C The exam and treatment you received in the Emergency Department were for an urgent problem and are not intended as complete care. It is important that you follow up with a doctor, nurse practitioner, or physician?s team assistant for ongoing care. If your symptoms become worse or you do not improve as expected and you are unable to reach your usual health care provider, you should return to the Emergency Department. We are available 24 hours a day. TIA MONROE has been given the following list of patient education materials, prescriptions and follow-up instructions: Follow-up Instructions: With: Address: When: Alex and Ani [address] [address] Business (1) In 3 days 05/16/2023 Comments: Dentistry follow-up In the event that this physician does not participate in your insurance network, please consult with your insurance company to find a nearby participating provider. Patient Education Materials: Dental Abscess A MESSAGE TO ALL PATIENTS REGARDING OPIOIDS PRESCRIPTION OPIOIDS: WHAT YOU NEED TO KNOW Prescription opioids can be used to help relieve cyaiioii-bb-zrxpnz pain and are often prescribed following a [...] be struggling with addiction, tell your health resident caregiver and ask for guidance or call [facility] National Helpline at 4-051-5 (more content not included)... Normal [facility] Discharge Instructionson Discharge Instructions [id number] 40 [id number]#1.00TIFF Normal [facility] ED Clinical Summaryon 2023 ED Clinical Summary [address] [address] ED Clinical Summary Person Information Name: TIA MONROE Maria Elena/[facility] Age: 33 Years : 1990 Sex: Female Language: Comoran PCP: Linda Sheppard DO Marital Status: Visit [...] 23:59:00 05/11/2023 23:59:00 05/11/2023 23:59:00 ADDRESS: [address] [facility] [id number] PHYS DOC NOTES: MEDICAL INFORMATION: Prescriptions Given: New Medications [facility], [address] [place], [place] [id number], [phone] amoxicillin-clavula cindi (Augmentin 875 mg oral tablet) [...] Medication PATIENT EDUCATION INFORMATION: Instructions: Dental Pain, Tfef-gj-Vgob Follow up: With: Address: When: Linda Sheppard DO, Amelie [address], [address] [place] [address] In 3 days 05/14/2023 DIAGNOSIS: 1:Pain, dental; 2:Infected dental caries; 3:First trimester ; Periapical abscess without sinus Normal [facility] ED Note-Physicianon 05-12-19 ED Note-Physician Basic Information Time Seen: Selena HALL, Violet E. 05/11/2023 22:59 Chief Complaint pt arrives for c/o dental pain on the right upper side. states cannot see her denitist d/t being . pt states seen in [place] [facility] and started on amoxcillin. History of Present Illness Patient is a 7-week 33-year-old female with history of PCOS that presents to the ED with her for evaluation of dental pain. Patient says pain started on Tuesday. She localizes it to the right upper jaw, radiates into her face ear and cheek. She went to [place] ER yesterday and was initiated on amoxicillin [...] day(s), # 14 tab(s), Refills(s) 0, Pharmacy: [facility], 160, cm, 05/11/23 21:53:00 EST, Height/Length Dosing, 110, kg, 05/11/23 21:53:00 EST, Weight Dosing chlorhexidine topical, 0.018 gm, 15 mL, Oral, BID, 480 mL, Refill(s) 0, (swish and spit; do not swallow), [facility], 160, cm, 05/11/23 21:53:00 EST, Height/Length Dosing, 110, kg, 05/11/23 21:53:00 EST, Weight Dosing (more content not included)... Normal [facility] Comment on above: Result Comment: Elec [...] these instructions at home: Medicines ? Take xqwg-zqp-iojnodb and prescription medicines only as told by [...] to the area. Brushing your teeth ? [place] your teeth twice a day using a [...] when you eat or drink. ? Take xrwr-suc-rzgkzbq and prescription medicines only as told by [...] Reviewed: 11/26/2020 Elsevier Patient Education ? 2022 [employer] Normal [facility] ED Patient Summaryon 024 ED Patient Summary [address] [address] Patient Discharge Instructions Person Information Name: TIA MONROE Age: 33 Years Arrival Date: 05/11/2023 21:25:54 Discharge Diagnosis: 1:Pain, dental; 2:Infected dental caries; 3:First trimester ; Periapical abscess without sinus Primary Care Physician: Linda Sheppard DO Provider Information Primary Provider: Zac Fields M.D. Advanced [employer] Marshal:Violet Walters PA-C The exam and treatment you received in the Emergency Department were for an urgent problem and are not intended as complete care. It is important that you follow up with a doctor, nurse practitioner, or physician?s team assistant for ongoing care. If your symptoms [...] Instructions: With: Address: When: Linda Sheppard DO [address] [place] [address] Amelie Julien , [facility] [address] [place] [address] In 3 days 05/14/2023 In the event that this physician does not participate in your insurance network, please consult with your insurance company to find a nearby participating provider. Patient Education Materials: Dental Pain, Kyrk-ar-Qcnp A MESSAGE TO ALL PATIENTS REGARDING OPIOIDS PRESCRIPTION OPIOIDS: WHAT YOU NEED TO KNOW Prescription opioids can be used to help relieve qxergssn-jt-ixvrck pain and are often prescribed following a [...] be struggling with addiction, tell your health resident caregiver an (more content not included)... Normal [facility] Consent for Treatmenton Consent for Treatment [id number] 96#1.00TIFF [facility] Progesteroneon 12-28-2022 Progesterone 12.60 ng/mL [facility] Comment on above: Result Comment: Female: Follicular phase <0.19 ng/mL Ovulation phase 0.06-4.14 ng/mL Luteal phase 4.11-14.5 ng/mL Postmenopausal <0.13 ng/mL Performed By: #### P NICKY #### [facility] [place] [address] Burr Bench Hand: Thor Hernández MD Progesteroneon 11-24-2022 Progesterone 7.18 ng/mL High 0.0-0.15 [facility] Comment on above: Result Comment: Female: Follicular phase <0.19 ng/mL Ovulation phase 0.06-4.14 ng/mL Luteal phase 4.11-14.5 ng/mL Postmenopausal <0.13 ng/mL Performed By: #### P NICKY #### [facility] [address] [place], [place] [id number] Burr Bench Hand: Thor Hernández MD , Urineon 3 HCG ( test) Ql (U) Negative NEGATIVE [facility] XR ANKLE RIGHT (MIN 3 VIEWS) on [...] fibular tip. Minimal ankle soft tissue edema. [facility] Radiology Study observation (narrative) [facility] XR ANKLE RIGHT (MIN 3 VIEWS) Ordered By: Bettye Johnson on 09-04-2022 [facility] Work Phone: Coding Summary.on 07-09-2022 Coding Summary. CD:[id number] bWw+PGhlYWQ+AV4EAKM cT52liAIbpO2xO0KMFP lOSywgQVBQTElOSyIgb dEiYF1jsHCpRRGj IC8+WA4xTEVnDmvcgJF cb0T0lPN9A06zyi8uSU anlXH6IXImDvMuwojpf 6bjwSq6LWxkJtxyNqGy WDDqvI21UOE6iZ61Sv2 2lXExaNSqq0tesXy4Aa QjNJZgVFH1eBkmPTwsh 1AmSGMoJ51mcKTtw7L8 IGNvbGxhcHNlOyBlbXB 9dP8tEJllpfqlu0xhxh gqFfo2zj54dWAxy5X4c HP2X6QtwrH4EHRueXFt ZpsceBWWrM4jlyrxw4f mfxevCgHrHBYyFPe0PV d9XCGejZvnYpJkVG37M LL1RJIqbfEkO7PjTBGr wKbiMkD1k8N7Yj6DH5S OMqbwC0WGUXJTHArveC Q+NY78me77S8WsSsgxY ce9QFRgSRF4yGC6xE1d DSAxRNoja1G3eUM0K0S mhcDrsf7gq1zvFWJeER wrA00odPQzh4A1VCKnh ZJ6QUCrpLxsEsRmlT18 Oyc+GOLwjBhli2MpNef zv5lbz5rfjPg8AkiiME SvbcSmtAthMPU2z4EvI o8fGXHxvVX3bHL8gA5s SyPgIqF3GAtnY571DiT idOKgLdhnL23vV3DlhG A+VOMnOtn6IYDsmNevS C3qF2IoMTLixhdiaTPb jSpcLU7hSSRfjdetOIY azG6hZECkR0v5SyUePd K3BRdnC2ObZPSoskfkG i00vW7kNiNbNnL1LZjj X1JebeP9OCTioGLmBVh cESW2B99sc2Z4IWMyTQ VoPHL9uIE7sO9tyXlgo jogbGVmdDsgdmVydGlj MVbxDSwhB542PYMobWd nPkNvZGluZyBEYXRlOi AgMDUvMDUvMjAyMzwvd GQ+VXXhCXW0iTztLUYi cAZqVPsaKs7yxEqapBk sEC9xTYZfctvwTPUbpD 5uPEJjdHRrtUwzUF9gO HOkvumxj700QbKkCUU0 UGPbyHOdH8UcgS6qVcE vQBZcJMIxT5CqvEZyCQ ueL593VVceOgJ1EZYlt lPdB1ZmHTMekXnhOjO8 g6J9Kr9Qd0PataerL0N aeHMrUiPaEdvxKWq9L8 RkPjwvdHI+NX16YLIkJ U05OBw5XYY1uKvbYRrv KIMvF5DjfO6ePaKxUXB kZGRkOyc+PHRhYmxlIH dpZHRoPScxMDAlJyBzd UikUS6cZf0uULPnONQk kAvgePPdKoAbp4zdHEQ cQBaaYX0cjTmeZ2EdbC T2VNEhp0q0Fn73I72vF 3JvdXA+DUUzhOM9tTG6 nX8zCdKzFpO1PIixI91 9IqDrzYEiKuqgm2dru5 yqtMn1SnJ8BZRalyAlk JswXQF3e8FzEl09Q74v IHdpZHRoPSIxNSUiIHZ kuHmbxj4atL0nGw9+PG FiyVW6fMF8nD6oFuGdR tY1YFhwS608RjNwvAFz Eczjt3sea5zjqIe9LhJ yQYMqnaDrxQgbEEN8x1 GsVa06P6OcdFxnb6MzB mf5mn05oDAty2L9oSK9 V6RbXASprmsvbWEfmFh gBL0hQZFyqlpqMMLrtI 0ePMElJ2i8EsQqIfA6V CzwX0XfiqM8PUZuqRAe PYVbhDALzI8hhhlgw6s gurdmIfPqLSPmURp2AD w6TFBviPqsFaTdLEA3J eU7YNN4eKBlbS9qtUat ynuyyA1cRow+CPO5rJG nvXUYPC3nSwcgzJK+PH UkPKK9pDllDCicUQNbe Z7hUZAtG8y1GhRcWeE4 ZGstZ1SbraZ6PZOysYL gEESxhWNAyI7apvgsh2 asnjenVeIcJYSuJIi1P Sj7VDYcfXkdStRuJNI9 LyX5QRX9aQBpzE1atEx gdxexoM4vCsv+QmlydG onEHZ4QXu9K2QmOah2T LNcpLmwMU7pzGFhPRaa Bc6khOhaaXmlKB6tBZV fmiqvk779OxEor2rxRL MckYHkCRazCNC3B48es 0L2JBTuGYVeGCE6lUP1 jL0wbOwkjfpyyXPawWz gdmVydGljYWwtYWxpZ2 24AMYbcMkiRnEkRSw7D 8KyVgi5HNKknAfoAF0q uYOlJBjlHh4lbGcifWt zOY4oDTPzcdozj839We Gmm8gzCGQkdHLlNDumR SF0N20ob9Q1HRIaXAUg IDG5kRR0uS6kdYyspoe gbGVmdDsgdmVydGljYW pmPGspI641LYSymMggZ pZpfRa5O0CwMtv3EXDv fQqkFA1faQGuIFsxKs4 anPusiUvqRV8bRLPpxl zon575TbHkq6hnJSWix DFkVGxwXXM1X34eb0W9 CTYkIIFzLPV8cRV0eE5 hbGlnbjogbGVmdDsgdm IbfCoaEHtxKWzqQ171P HRvcDsnPlBhdGllbnQg DUsfVIo4K6ZqTlvwzTA +IM37QJYxFT40tWJjcC Yhm4fzpDg6ZpMtGEIfM IM2aDcvIFxen9CoPZTc E04xkYDez0I2LITptJc qrOSqWyTkhOE0dF7pMR xqosvwe5mwliriYecek 6avyq35nZ33C10sWClh ZHRoPSIzMCUiIHZhbGl kit8ihM6aHt6+PGNvbC I9tPQ4vP5eUCDgRsN9A GduT428GqOtkGItNmqc e3qws6lzrJf9CwJ7KHN csaItcVyuEWS5i8JjUd 36Q39iYUgqWQVoFEJoD YTzWFLjvPqmpv9uzF3w Ii8+TWVleTZ6vTT3iN1 gPcMqFtA4ZIsaK071Fn OpySBoHfpgV87gU1Hac XA+ZIDiCik6AIHkjCdj RB7pdOUfAImzJt0fYVY 3HmXcJiMxODcnL6YfIR JfppfxxcazlTT5EAMxZ CSvvG41Qn8neOazLBUa uROXlY6padrds1ykpjp aYwBvEYWkOBp0YUp2NS DxtUodHlZtFWX5YsZ8N UP3eEVgsJ7cvWslgtyw tV9nW0CaBWPnuvprWh6 2jB6zChFlJuS1WRswMt c+Vs1KOcDTAfqpMhENS kRJRTwvdGQ+PHRkIHN0 bTycTZvlAGYjvU6nOHW fY9i4RbBpRnX7TKxbJ2 LeZHEkvuzcCv68cI2aC gSsImZ7VEmaG2FxbeZ4 ULYesTQaJSavEGD1E17 jx5Q6IVNiMOYqXPY0yU T3nW5ceFrubelhxUIvl DsgdmVydGljYWwtYWxp U960FOKfyUblUgPwMsM 5MeS1BEW3K2DdYyu8UE RlrZruCC5okWFuIYomR b2ssJifaAguKM6zWSEy ufbrEOBebI9fXRNxzOW hdWorZF3uKVChavvva0 86QfAfFCX2VFUpaXBrI 2IdtF0kIrMrBUZeNRYs U0IgxSSrQPpiC555XKv tHgU5NPQucoUoC4IeMA JjfRtpZyB2p5Y6Ez3wV iBZZWFyczwvdGQ+PHRk BLA4gRnuNVidNXQicO9 aPXCfT8h1UaTkYdC2PZ fhZ4SgYIBrxffkIt29b E2iTkMeTcV6PCziL7Nh evP9KEPsdDExDZigOBN 7J10na9P9NSFhAVCvQJ H7lNA4uV5msZqjknofx GVmdDsgdmVydGljYWwt YQhtR393WLQmeJjwPaU lbWFsZTwvdGQ+PHRkIH X3gSidSFdwZMBhvJ4kN ESmX0l7ReLvYqP5TSmv B4IkKZSfmvpfCq62bU4 eCrNnTpN2DXfjS4Zamj T4BPEwiJMrMYgzDMY7Y 70bz4T7WLZvABVlDTK0 dZY5dJ2riZahadjbuXG mdDsgdmVydGljYWwtYW maV515LYGliImcNdAfl Y3uEIYaICzgjWQgkXyx dGQ+EI49fw09V2XiXsu bSoj0RIFiUEA3xHZ4cG 5bYQGgVAceu3B3yNO1R 9YnauTiud7kw9gfGABm SQxoL97vdPBoi2U3FUM pzCM2XPSnrAbxYfGtxV 93Oyc+STQacAeti2GkZ vvup2jcp3glaDx6ThMa JCZinwOnxBepTBB3o6W wEq54F93kMKwjFJOqFH BiEBSdEVKzfKzcts9hn G9wIi8+EDPnjZG3tOZ5 qF0sAqHcHfR2NYnhG55 0HoYpfQMeDbglq6mhl6 dqgNz5RfWvMQMtauQcr FvvKDG5a4EtCt52V4Sn dPlom6ZgJpl9qi79eOU dm0U8qOZ5V2XeXASyuw otkCPiwAnqWF6kVXSuk sjgMUDtxF6lWBNwP2o0 WcWpOaV7SPfkR3UyuqD 6IGJvbGQgMTBwdCBUaW 5lilfkx9cttrvrWrDrP NGjDHd7GTb9NDVluUnq UwAyBEW8ErR3OAL6eVV pmI1hbHnzjddigY2lUf c+IWo9u2kkfDDqZQ9dw ST7VC80JB96vHImb1J8 mPN9C8WrXMRevxeknga pqGM0BATjMNNriI79Qx 2cfJbiRl9xLGQgPBE5C XKzrEBeH0HgwF3sTsAz CAJcDRIzI2JvvLJwULz bG074MHxnDvZ3ZJLzzy SeM1SnVHMkaBnsKoB0z 7J1Od0QNP50OI60NZ07 xMJav8F9lGQ6Y6QuSYN zalowowoguTU3AVSbZP GhiU11Qn7bvTikAf8vM HJyGOD9IBUhrOEtW2Da mK1fQdSnQZFlKELtG4T aiDKgVAmzU648IFrwLv H2QVDcocRqE1ZeBLOce CalTgO1e9P0Sx3EUa00 BH06BS15wCBtk7O4vNN 3R1DkOMYavytxmeipjY S2RRNfXSOttX55Qx0vf RjjNo0dCOJoOBX4UYAl nCTcZ4BdsM0iQaQbCFB bISBzZ0QvzYEfSMuvR3 48JPqaZpX5JWYmjqKiB 9BhMOHyjBsyBtC7s8D5 Sf1YMArkaiq6J1HgRjd vdHI+VG17OTOoNY32fD KndZUnb9zqbPo2TzOmT UNyOYJ1dBwuLWioh0Lo VRFzP87l (more content not included)... Normal [facility] Consultation Noteon 07-07-19 Consultation Note Patient: TIA [...] Problems Acute hepatitis C / SNOMED CT 864491663 / Confirmed Anxiety / SNOMED CT 24744633 / Confirmed Apnea, sleep / SNOMED CT 842090587 / Confirmed Dental caries / SNOMED CT 246572496 / Confirmed PCOS (polycystic ovarian syndrome) / SNOMED CT 493380001 / Confirmed Histories Past Medical History: Active Dental caries ([id number]) Family History: No family history items have [...] Patient agrees with plan of care. [facility] Comment on above: Result Comment: Elec tronically Signed By: Bing PEDRAZA, Todd Spencer.br\Date and Time Signed: 07/06/22 13:28 EDT DHEA SERUMon 07-04-2022 Dehydroepiandrosterone (DHEA) 220 ng/dL Normal 31-701 [facility] Comment on above: Performed By: #### Vijaya OMER. ####[facility] [address] [place], [place] [address]LpSelwyn Sanchez DHEA-SULFATEon 06-30-2022 DHEA-Sulfate 106.0 ug/dL Normal 84.8-378.0 [facility] Comment on above: Performed By: ###Jessica TATUM ####[facility] [address] [place] [address]Dr. Nito Sanchez FSHon 06-30-2022 FSH 6.6 mIU/mL Normal [facility] Comment on above: Result Comment: Adul t Female: Follicular phase 3.5 - 12.5 Ovulation phase 4.7 - 21.5 Luteal phase 1.7 - 7.7 Postmenopausal 25.8 - 134.8 Performed By: #### L BCFS #### [facility] [address] [place] [address] Dr. Nito Sanchez LUTEINIZING HORMONE (LH)on 0 06-30-2022 LH 18.9 mIU/mL Normal [facility] Comment on above: Result Comment: Adul t Female: Follicular phase 2.4 - 12.6 Ovulation phase 14.0 - 95.6 Luteal phase 1.0 - 11.4 Postmenopausal 7.7 - 58.5 Performed By: #### L BCLH #### [facility] [address] [place] [address] Dr. Nito Sanchez PROLACTINon 06-30-2022 Prolactin 5.3 ng/mL Normal 4.8-23.3 [facility] Comment on above: Performed By: #### P ROLAC #### [facility] [address] [place] [address] Dr. Nito Sanchez CBC AUTO DIFFon 06-29-2022 BASO # 0.1 103/ul Normal 0.0-0.1 [facility] Comment on above: Performed By: #### C BC #### [facility] [address] [place] [address] Dr. Nito Sanchez Basophils/100 WBC (Bld) 0.5 % Normal 0.2-2.0 [facility] Comment on above: Performed By: #### C BC #### [facility] [address] [place] [address] Dr. Nito Sanchez EO # 0.2 103/ul Normal 0.0-0.7 [facility] Comment on above: Performed By: #### C BC #### [facility] [address] [place] [address] Dr. Nito Sanchez Eosinophils/100 WBC (Bld) 1.6 % Normal 0.9-7.0 [facility] Comment on above: Performed By: #### C BC #### [facility] [address] [place] [address] Dr. Nito Sanchez Erythrocyte distribution width (RBC) [Ratio] 13.6 % Normal 11.0-15.0 [facility] Comment on above: Performed By: #### C BC #### [facility] [address] [place] [address] Dr. Nito Sanchez Hematocrit (Bld) [Volume fraction] 39.7 % Normal 36.0-48.0 [facility] Comment on above: Performed By: #### C BC #### [facility] [address] [place] [address] Dr. Nito Sanchez Hemoglobin (Bld) [Mass/Vol] 13.1 g/dL Normal 12.0-16.0 [facility] Comment on above: Performed By: #### C BC #### [facility] [address] [place] [address] Dr. Nito Sanchez IG # 0.05 10e3/ul Critically high 0.00-0.[address] [facility] Comment on above: Performed By: #### C BC #### [facility] [address] [place] [address] Dr. Nito Sanchez IG % 0.5 % Normal 0.0-0.5 [facility] Comment on above: Performed By: #### C BC #### [facility] [address] [place] [address] Dr. Nito Sanchez LYMPH # 2.6 103/ul Normal 1.2-3.8 [facility] Comment on above: Performed By: #### C BC #### [facility] [address] [place] [address] Dr. Nito Sanchez Lymphocytes/100 WBC (Bld) 25.3 % Normal 20.5-60.0 [facility] Comment on above: Performed By: #### C BC #### [facility] [address] [place] [address] Dr. Nito Sanchez MANUAL DIFF REQ NO Normal [facility] Comment on above: Performed By: #### C BC #### [facility] [address] [address] [address] Nito Sanchez MCH (RBC) [Entitic mass] 27.1 pg Normal 26.7-34.0 [facility] Comment on above: Performed By: #### C BC #### [facility] [address] [place] [address] Dr. Nito Sanchez MCHC (RBC) [Mass/Vol] 33.0 g/dL Normal 29.9-35.2 [facility] Comment on above: Performed By: #### C BC #### [facility] [address] [place] [address] Dr. Nito Sanchez MCV (RBC) [Entitic vol] 82.2 fL Normal 81.0-99.0 [facility] Comment on above: Performed By: #### C BC #### [facility] [address] [place] [address] Dr. Nito Sanchez MONO # 0.5 103/ul Normal 0.3-0.8 [facility] Comment on above: Performed By: #### C BC #### [facility] [address] [place] [address] Dr. Nito Sanchez Monocytes/100 WBC (Bld) 5.0 % Normal 1.7-12.0 [facility] Comment on above: Performed By: #### C BC #### [facility] [address] [place] [address] Dr. Nito Sanchez NEUT # 6.9 103/ul Critically high 1.4-6.5 [facility] Comment on above: Performed By: #### C BC #### [facility] [address] [place] [address] Dr. Nito Sanchez Neutrophils/100 WBC (Bld) 67.1 % Normal 43.0-75.0 [facility] Comment on above: Performed By: #### C BC #### [facility] [address] [place] [address] Dr. Nito Sanchez Platelet mean volume (Bld) [Entitic vol] 10.0 fL Normal 9.5-13.5 [facility] Comment on above: Performed By: #### C BC #### [facility] [address] [address] [address] Nito Sanchez PLT 313 103/ul Normal 150-450 [facility] Comment on above: Performed By: #### C BC #### [facility] [address] [place] [address] Dr. Nito Sanchez RBC 4.83 106/ul Normal 4.20-5.40 [facility] Comment on above: Performed By: #### C BC #### [facility] [address] [place] [address] Dr. Nito Sanchez WBC 10.3 103/ul Normal 4.0-11.0 [facility] Comment on above: Performed By: #### C BC #### [facility] [address] [place] [address] Dr. Nito Sanchez Consent for Treatmenton 06-06 Consent for Treatment [id number] 650#1.00CD:127 Normal [facility] FREE T4on 06-29-2022 Free T4 [Mass/Vol] 1.01 ng/dL Normal 0.76-1.46 [facility] Comment on above: Performed By: #### F T4 #### [facility] [address] [place] [address] Dr. Nito Sanchez GLYCOHEMOGLOBIN A1Con 2022 ADA RECOMMENDATION SEE BELOW Normal [facility] Comment on above: Result Comment: ADA RECOMMENDED LIMIT 4.0 - 6.0 ADA THERAPEUTIC TARGET < 7.0 ACTION SUGGESTED > 7.0 Performed By: #### A 1C #### [facility] [address] [place] [address] Dr. Nito Sanchez Glucose [Mass/Vol] 108 mg/dL Normal [facility] Comment on above: Performed By: #### A 1C #### [facility] [address] [place] [address] Dr. Nito Sanchez HbA1c (Bld) [Mass fraction] 5.4 % Normal 4.5-6.2 [facility] Comment on above: Performed By: #### A 1C #### [facility] [address] [place] [address] Dr. Nito Sanchez HIPAA Forms Officeon 023 HIPAA Forms Office [id number] 602#1.00CD:127 Normal [facility] Legal Correspondence Officeo n 06-29-2022 Legal Correspondence Office [id number] 270#1.00CD:127 Normal [facility] Legal Correspondence Office [id number] 787#1.00CD:127 Normal [facility] Office/Clinic Note-Physician on 06-29-2022 Office/Clinic Note-Physician [id number] 515#1.00CD:127 Normal [facility] Orders Officeon 06-29-2022 Orders Office [id number] 642#1.00CD:127 [facility] PREG QUANT HCGon 06-29-2022 HCG QUANT 1 mIU/mL Normal [facility] Comment on above: Performed By: #### T BERNICE, PREGQNT #### [facility] [address] [place] [address] Dr. Nito Sanchez HCG RANGE SEE BELOW Normal [facility] Comment on above: Result Comment: 5-50 0.2-1 WEEK 50-500 1-2 WEEKS 100-5,000 2-3 WEEKS 500-10,000 3-4 WEEKS 1,000-50,000 4-5 WEEKS 10,000-100,000 5-6 WEEKS 15,000-200,000 6-8 WEEKS 10,000-100,000 2-3 MONTHS Performed By: #### T SH, PREGQNT #### [facility] [address] [place] [address] Dr. Nito Sanchez Patient Correspondenceon Patient Correspondence [id number] 946#1.00CD:127 Normal [facility] Patient Correspondence [id number] 137#1.00CD:127 Normal [facility] Patient Correspondence [id number] 273#1.00CD:127 Normal [facility] Patient Correspondence [id number] 879#1.00CD:127 Normal [facility] Patient Correspondence [id number] 956#1.00CD:127 Normal [facility] Patient History Officeon Patient History Office [id number] 983#1.00CD:127 Normal [facility] Patient History Office [id number] 721#1.00CD:127 Normal [facility] Radiology Outside Office Superintendent Job yon 06-29-2022 Radiology Outside Office Copy [id number] 142#1.00CD:127 Normal [facility] TSHon 06-29-2022 TSH 0.848 uIU/mL Normal 0.358-3.740 [facility] Comment on above: Performed By: #### T , PREGQNT #### [facility] [address] [place] [address] Dr. Nito Sanchez US PELVIS AND TRANSVAGon [...] by: BETTYE DANIELS Date: 2022-06-29 15:17 Normal [facility] PAP ACOG PANEL 2: 30 to 65on 06-19-2022 . . Normal [facility] Comment on above: Result Comment: Perf ormed at: WB Performed By: #### 4 [id number] #### [facility] [address] [address] [address] Nito Sanchez Age Gdln ACOG Testing - [facility] Comment on above: Performed By: #### 4 [id number] #### [facility] [address] [address] [address] Nito Sanchez DIAGNOSIS: Comment Normal [facility] Comment on above: Result Comment: NEGA TIVE FOR INTRAEPITHELIAL LESION OR MALIGNANCY. Performed at: WB Performed By: #### 4 [id number] #### [facility] [address] [address] [address] Nito Sanchez HPV Aptima Negative Normal Negative [facility] Comment on above: Result Comment: This nucleic acid amplification test detects fourteen high-risk HPV types (16,18,31,33,35,39,45,51,52,56,58,59,66,68) without differentiation. Performed at: =G Performed By: #### 4 [id number] #### [facility] [address] [address] [address] Nito Sanchez HPV Genotype Reflex Comment Normal [facility] Comment on above: Result Comment: Crit eria not met, HPV Genotype not performed. Performed at: WB Performed By: #### 4 [id number] #### [facility] [address] [address] [address] Nito Sanhcez Methodology: Comment Normal [facility] Comment on above: Result Comment: This liquid based ThinPrep(R) pap test was screened with the use of an image guided system. Performed at: WB Performed By: #### 4 [id number] #### [facility] [address] [address] [address] Nito Sanchez Note: Comment Normal [facility] Comment on above: Result Comment: The Pap smear is a screening test designed to aid in the detection of premalignant and malignant conditions of the uterine cervix. It is not a diagnostic procedure and should not be used as the sole means of detecting cervical cancer. Both false-positive and false-negative reports do occur. . Performed at: WB Performed By: #### 4 [id number] #### [facility] [address] [address] [address] Nito Sanchez Performed by: Comment Normal [facility] Comment on above: Result Comment: Nanda Treadwell, Washing Machine Operator (ASCP) Performed at: WB Performed By: #### [id number] #### [facility] [address] [place] [address] Dr. Nito Sanchez Specimen adequacy: Comment Normal [facility] Comment on above: Result Comment: Sati sfactory for evaluation. Endocervical and/or squamous metaplastic cells (endocervical component) are present. Performed at: WB Performed By: #### 4 [id number] #### [facility] [address] [address] [address] MAXILLOFACIAL WO CONTRAST on 05-11-2022 Recent extraction of the right mandibular and maxillary second molar teeth with presence of air in the respective tooth sockets. No evidence of edema in the sublingual space or the buccal space Probable periapical abscess involving the right maxillary premolar tooth adjacent to the first molar tooth. [facility] RIS CONSOLIDATED EXAM: CT MAXILLOFACIAL WO [...] visualized intracranial contents show no acute process. [facility] Phil Romero MD - 05/11/2022 EXAM: [...] tooth adjacent to the first molar tooth. [facility] Work Phone: Radiology Study observation (narrative) [place] Work Phone: CT MAXILLOFACIAL WO CONTRAST Ordered By: Phil Mary on 05-11-2022 [facility] Work Phone: Urine Preg (Lab)on 3 Beta HCG ( test) Ql (U) Negative NEGATIVE [employer] HCG, Quantitative, on 03-29-2022 hCG Quant NINF [facility] Comment on above: Non-preg premeno <=5 Postmeno <=8 Male <=3 If HCG results do not concur with clinical observations, additional testing to confirm results is recommended. [facility] COVID-19, Rapidon 07-22-2021 SARS-CoV-2 (COVID-19) RNA KALPESH+probe Ql (Unsp spec) Not detected Not Detected [facility] Comment on above: Rapid NAAT: The [...] management decisions. Fact sheet for Healthcare Providers: https://www.fda.gov/media/109882/download Fact sheet for Patients: https://www.fda.gov/media/279046/download Methodology: Isothermal Nucleic Acid Amplification Specimen Description .NASOPHARYNGEAL SWAB [facility] Strep Screen Group A Throato n 07-22-2021 S. pyogenes Ag Ql (Throat) Negative NEGATIVE [facility] Comment on above: Rapid Strep A negati ve. A negative Rapid Group A Strep Screen result does not rule out the possibility of Group A Streptococci in the specimen. A Group A Strep DNA test is available upon request. Source .THROAT SWAB [facility] MR LUMBAR SPINE WITHOUT CONT [facility] 06-17-2021 MR LUMBAR SPINE WITHOUT CONTRAST EXAMINATION: [...] foraminal stenosis. 2. No fracture or spondylolisthesis. [facility] Workstation ID: [id number] Dictated by: JONATHAN LINARES on TueJun 18, 2021 11:51:00 AM EDT Transcribed by: ZULMA CARDENAS on TueJun 18, 2021 11:58:13 AM EDT Finalized by: JONATHAN LINARES on TueJun 18, 2021 12:35:45 PM EDT [facility] Comment on above: Order Comment: Injur y/Trauma or Illness?:Illness/Other How long have you had these symptoms (acute/chronic)?:Chronic Reason for exam?:LBP AND bilat hip pain x years, nki Type of Exam?:Subsequent/Follow-up Additional signs and symptoms?:. CBC panel Auto (Bld)on 04-16 Erythrocyte distribution width (RBC) [Entitic vol] 14.0 % 11.6 - 14.8 % [facility] Hematocrit (Bld) [Volume fraction] 38.6 % 36.0 - 46.0 % [facility] Hemoglobin (Bld) [Mass/Vol] 12.1 g/dL 12.0 - 16.0 g/dL [facility] Interpretation and review of laboratory results Abnormal [facility] MCH (RBC) [Entitic mass] 25.4 pg Low 26. 0 - 34.0 pg [facility] MCHC (RBC) [Mass/Vol] 31.3 g/dL 31.0 - 37.0 g/dL [facility] MCV (RBC) [Entitic vol] 81.1 fL 80.0 - 100.0 fL [facility] Platelet mean volume (Bld) [Entitic vol] 10.0 fL 9.4 - 12.4 fL [facility] Platelets (Bld) [#/Vol] 379 10*3/uL [facility] RBC (Bld) [#/Vol] 4.76 10*6/uL [facility] WBC (Bld) [#/Vol] 9.85 10*3/uL [facility] Comprehensive metabolic 2000 panelon 04-16-2021 Albumin [Mass/Vol] 3.7 g/dL 3.2 - 5.2 g/dL [facility] ALP [Catalytic activity/Vol] 95 U/L 40 - 140 U/L [facility] ALT [Catalytic activity/Vol] 36 U/L 14 - 65 U/L [facility] Anion gap [Moles/Vol] 11 mmol/L 10 - 2 0 mmol/L [facility] AST [Catalytic activity/Vol] 22 U/L 0 - 45 U/L [facility] Bilirubin [Mass/Vol] 0.3 mg/dL 0.0 - 1 .3 mg/dL [facility] Calcium [Mass/Vol] 9.3 mg/dL 8.4 - 10. 2 mg/dL [facility] Chloride [Moles/Vol] 105 mmol/L 98 - 10 8 mmol/L [facility] Creatinine [Mass/Vol] 0.68 mg/dL 0.40 - 1.10 [facility] GFR/1.73 sq M.predicted CKD-EPI (S/P/Bld) [Vol rate/Area] 117 >=60 mL/min/1.73 m2 [facility] Glucose [Mass/Vol] 76 mg/dL 65 - 99 mg/dL [facility] HCO3 [Moles/Vol] 26 mmol/L 21 - 32 mmol/L [facility] Interpretation and review of laboratory results Normal [facility] Potassium [Moles/Vol] 4.2 mmol/L 3.5 - 5.1 mmol/L [facility] Protein [Mass/Vol] 7.5 g/dL 6.0 - 8.0 g/dL [facility] Sodium [Moles/Vol] 138 mmol/L 135 - 145 mmol/L [facility] Urea nitrogen [Mass/Vol] 13 mg/dL 8 - 25 mg/dL [facility] Urea nitrogen/Creatinine [Mass ratio] 19.1 mg/mg [facility] The eGFR should be used for monitoring renal function only and not for medication dosing. [facility] Lipid 1996 panelon Cholesterol [Mass/Vol] 195 mg/dL 100 - 199 mg/dL [facility] Comment on above: National Cholesterol Education Program Guidelines: Cholesterol Desirable: <200 mg/dL Borderline High: 200-239 mg/dL High: greater than or equal to 240 mg/dL Cholesterol in HDL [Mass/Vol] 56 mg/dL 40 - 59 [facility] Comment on above: National Cholesterol Education Program Guidelines: HDL Cholesterol Low: <40 mg/dL Near Optimal: 40-59 mg/dL High: greater than or equal to 60 mg/dL Cholesterol in LDL [Mass/Vol] 109 mg/dL 10 - 130 mg/dL [facility] Comment on above: National Cholesterol Education Program Guidelines: LDL Cholesterol Optimal: <100 mg/dL Near Optimal/above Optimal: 100-129 mg/dL Borderline High: 130-159 mg/dL High: 160-189 mg/dL Very High: greater than or equal to 190 mg/dL Cholesterol non HDL [Mass/Vol] 139 mg/dL [facility] Comment on above: National Cholesterol Education Program Guidelines: NON HDL Cholesterol Desirable: <130 mg/dL Borderline High: 130-159 mg/dL High: 160-189 mg/dL Very High: > or = 190 mg/dL Cholesterol.total/Cholest elton in HDL [Mass ratio] 3.5 {ratio} ratio [facility] Comment on above: Female Cholesterol/H DL Ratio: Average risk: 4.4 1/2 average risk: 3.3 2 x average risk: 7.1 Interpretation and review of laboratory results Abnormal [facility] Triglyceride [Mass/Vol] 151 mg/dL High 30 - 150 mg/dL [facility] Comment on above: National Cholesterol Education Program Guidelines: Triglyceride Normal: <150 mg/dL Borderline High: 150-199 mg/dL High: 200-499 mg/dL Very High: greater than or equal to 500 mg/dL No Panel Informationon 04-16 [facility] TSH DL <= 0.005 mIU/L Qnon 0 04-16-2021 Interpretation and review of laboratory results Normal [facility] TSH Qn 1.04 m[IU]/L [facility] Basic Metabolic Panel w/ Ref ray to MGon 03-23-2021 Anion gap [Moles/Vol] 13 mmol/L 9 - 17 mmol/L [facility] Calcium [Mass/Vol] 8.8 mg/dL 8.6 - 10. 4 mg/dL [facility] Chloride [Moles/Vol] 104 mmol/L 98 - 10 7 mmol/L [facility] CO2 [Moles/Vol] 21 mmol/L 20 - 31 mmol/L [facility] Creatinine [Mass/Vol] 0.65 mg/dL 0.50 - 0.90 mg/dL [facility] GFR >60 >60 mL/min [facility] GFR Non- >60 >60 mL/min [facility] GFR/1.73 sq M.predicted MDRD (S/P/Bld) [Vol rate/Area] [facility] Comment on above: Average GFR for 30-3 9 years old: 107 mL/min/1.73sq m Chronic Kidney Disease: <60 mL/min/1.73sq m Kidney failure: <15 mL/min/1.73sq m eGFR calculated using average adult body mass. Additional eGFR calculator available at: http://www.Vir-[employer]/multiple_crcl_2012.htm GFR/1.73 sq M.predicted MDRD (S/P/Bld) [Vol rate/Area] NOT REPORTED [facility] Glucose [Mass/Vol] 104 mg/dL High 70 - 99 mg/dL [facility] Interpretation and review of laboratory results Abnormal [facility] Potassium [Moles/Vol] 3.7 mmol/L 3.7 - 5.3 mmol/L [facility] Sodium [Moles/Vol] 138 mmol/L 135 - 144 mmol/L [facility] Urea nitrogen (BldV) [Mass/Vol] 15 mg/dL 6 - 20 mg/dL [facility] Urea nitrogen/Creatinine (Bld) [Mass ratio] 23 High [facility] CBC Auto Differentialon 03-07 Absolute Eos # 0.10 [facility] th Absolute Immature Granulocyte NOT REPORTED [facility] Absolute Lymph # 0.60 [facility] Absolute [place] # 0.50 [facility] Basophils (Bld) [#/Vol] 0.00 10*3/uL [facility] Basophils/100 WBC (Bld) 0 % 0 - 2 % [facility] Differential Type YES [facility]alt Eosinophils/100 WBC (Bld) 2 % 0 - 5 % [facility] Hematocrit (Bld) [Volume fraction] 34.6 % Low 36 - 46 % [facility] Hemoglobin.gastrointestin al spec 1 Ql (Stl) 11.7 g/dL Low 12.0 - 16.0 g/dL [facility] Immature Granulocytes NOT REPORTED 0 % [facility] Interpretation and review of laboratory results Abnormal [facility] Lymphocytes/100 WBC (Bld) 13 % Low 15 - 40 % [facility] MCH (RBC) [Entitic mass] 26.4 pg 26 - 34 pg [facility] MCHC (RBC) [Mass/Vol] 33.8 g/dL 31 - 3 7 g/dL [facility] MCV (RBC) [Entitic vol] 78.2 fL Low 80 - 100 fL [facility] Monocytes/100 WBC (Bld) 10 % High 4 - 8 % [facility] NRBC Automated NOT REPORTED per 100 WBC [facility] Platelet distribution width (Bld) [Ratio] 14.4 % 12.1 - 15.2 % [facility] Platelet Estimate NOT REPORTED [facility] Platelet mean volume (Bld) [Entitic vol] NOT REPORTED 6.0 - 12.0 fL [facility] Platelets (Bld) [#/Vol] 259 10*3/uL [facility] RBC (Bld) [#/Vol] 4.43 10*6/uL 4.0 - 5.2 m/uL [facility] RBC (Bld) [#/Vol] NOT REPORTED [facility] Segmented neutrophils/100 WBC (Bld) 75 % 47 - 75 % [facility] Segs Absolute 3.60 [facility] h WBC (Bld) [#/Vol] 4.8 10*3/uL [facility] WBC (Bld) [#/Vol] NOT REPORTED [facility] COVID-19, Rapidon 03-23-2021 Interpretation and review of laboratory results Abnormal [facility] SARS-CoV-2 (COVID-19) RNA KALPESH+probe Ql (Unsp spec) Detected Abnormal Not Detected [facility] Comment on above: Rapid NAAT: The specimen [...] this assay. Fact sheet for Healthcare Providers: https://www.fda.gov/media/611511/download Fact sheet for Patients: https://www.fda.gov/media/088768/download Methodology: Isothermal Nucleic Acid Amplification Results reported to the appropriate Health Department Specimen Description .NASOPHARYNGEAL SWAB [facility] No Panel Informationon 03-23 Direct Exam Negative [facility] Rapid influenza A/B antigens on 03-23-2021 Special Requests NOT REPORTED [facility] Specimen Description .NASOPHARYNGEAL SWAB [facility] COVID-19, RapidOrdered By: Shayy Springer on 12-27-2020 SARS-CoV-2 (COVID-19) RNA KALPESH+probe Ql (Unsp spec) Not detected Not Detected [facility] Work Phone: Comment on above: Rapid NAAT: [...] management decisions. Fact sheet for Healthcare Providers: https://www.fda.gov/media/360467/download Fact sheet for Patients: https://www.fda.gov/media/466420/download Methodology: Isothermal Nucleic Acid Amplification Specimen Description .NASOPHARYNGEAL SWAB [employer] Phone: [employer] Phone: Strep Screen Group A ThroatO rdered By: Wayne Springer on 12-27-2020 S. pyogenes Ag IA Ql (Unsp spec) Rapid Strep A negative. A negative Rapid Group A Strep Screen result does not rule out the possibility of Group A Streptococci in the specimen. A Group A Strep DNA test is available upon request. [employer] Phone: Special Requests NOT REPORTED [employer] Phone: Specimen Description .THROAT [employer] Phone: [employer] Phone: XR SHOULDER RIGHT (MIN 2 VIE WS)Ordered By: Anuj Quinn on 11-20-2020 No acute fracture or traumatic malalignment. [employer] Phone: EXAMINATION: XR SHOULDER RIGHT (MIN 2 VIEWS), , 11/20/2020 9:30 PM EDT INDICATION: Reason for exam:->shoulder pain HISTORY: Ordering Provider Reason for Exam: Technologist Note: Additional: COMPARISON: None. TECHNIQUE: Right shoulder x-ray: 3 view(s). FINDINGS: No acute fracture. Glenohumeral and acromioclavicular joints are anatomically aligned. Joint spaces are preserved. Soft tissues are unremarkable. [employer] Phone: Ward, [facility] Incoming Radiant Results From [employer] - 11/20/2020 9:55 PM EDT EXAMINATION: XR [...] IMPRESSION: No acute fracture or traumatic malalignment. [employer] Work Phone: [employer] Work Phone: COVID-19, MOLECULARon 2020 SARS-CoV-2 (COVID-19) RNA KALPESH+probe Ql (Unsp spec) Not detected Normal Not Detected [facility] Comment on above: Order Comment: : [...] at the following links: For Healthcare Providers: https://www.fda.gov/media/420590/download For Patients: https://www.fda.gov/media/832894/download Performed By: #### L [id number] #### [facility] [address] [place] [address] Joe Rider M.D. [id number] HbA1c (Bld) [Mass fraction]O rdered By: Zelda Bautista on 07-09-2020 Interpretation and review of laboratory results Normal [facility] POC Hemoglobin [id number] By : Zelda Bautista on 07-09-2020 HbA1c (Bld) [Mass fraction] 5.2 % 4.0 - 6.0 % [facility] HbA1c (Bld) [Mass fraction]O rdered By: Lelo Gallegos on 06-09-2020 Interpretation and review of laboratory results Normal [facility] POC Hemoglobin [id number] By : Lelo Gallegos on 06-09-2020 HbA1c (Bld) [Mass fraction] 5.6 % 4.0 - 6.0 % [facility] CBC Auto Differentialon 03-08 Basophils (Bld) [#/Vol] 0.00 10*3/uL [place] Basophils/100 WBC (Bld) 0 % 0 - 2 % M [place], [place] Differential Type [facility] [place] Eosinophils (Bld) [#/Vol] 0.10 10*3/uL [place] Eosinophils/100 WBC (Bld) 1 % 0 - 5 % [place] Erythrocyte distribution width (RBC) [Ratio] 14.2 % 12.1 - 15.2 % [place] Hematocrit (Bld) [Volume fraction] 36.1 % 36 - 46 % [place] Hemoglobin (Bld) [Mass/Vol] 12.5 g/dL 12 - 16 g/dL [place] Interpretation and review of laboratory results Abnormal [place], [place] Lymphocytes (Bld) [#/Vol] 2.00 10*3/uL [place] Lymphocytes/100 WBC (Bld) 14 % Low 15 - 40 % [place] MCH (RBC) [Entitic mass] 30.6 pg 26 - 34 pg [place] MCHC (RBC) [Mass/Vol] 34.5 g/dL 31 - 3 7 g/dL [place] MCV (RBC) [Entitic vol] 88.5 fL 80 - 100 fL [place] Monocytes (Bld) [#/Vol] 0.80 10*3/uL [place] Monocytes/100 WBC (Bld) 6 % 4 - 8 % [place] Platelet mean volume (Bld) [Entitic vol] NOT REPORTED 6 - 12 fL [place] Platelets (Bld) [#/Vol] 300 10*3/uL [place] Platelets (Bld) [#/Vol] NOT REPORTED [place] RBC (Bld) [#/Vol] 4.08 10*6/uL 4 - 5.2 m/uL [place] RBC morphology finding Nom (Bld) NOT REPORTED [place] Segmented neutrophils/100 WBC (Bld) 79 % High 47 - 75 % [place] Segs Absolute 10.70 [place], [place] WBC (Bld) [#/Vol] 13.6 10*3/uL [place] WBC (Bld) [#/Vol] NOT REPORTED per 100 WBC [place] WBC Morphology NOT REPORTED [place] COVID-19, PCRon 03-26-2020 SARS-CoV-2, Rapid Not Detected Not Detected [place] Comment on above: Rapid NAAT: The [...] management decisions. Fact sheet for Healthcare Providers: https://www.fda.gov/media/282239/download Fact sheet for Patients: https://www.fda.gov/media/227976/download Methodology: Isothermal Nucleic Acid Amplification Source .THROAT [place] Comprehensive Metabolic Pane l w/ Reflex to MGon 03-26-2020 Albumin [Mass/Vol] 3.3 g/dL Low 3.5 - 5.2 g/dL [place] Albumin/Globulin [Mass ratio] NOT REPORTED [place] ALP [Catalytic activity/Vol] 57 U/L 35 - 104 U/L [place] ALT [Catalytic activity/Vol] U/L Low 5 - 33 U/L [place] Anion gap [Moles/Vol] 11 mmol/L 9 - 17 mmol/L [place] AST [Catalytic activity/Vol] 9 U/L <32 [place] Bilirubin Ql (U) 0.10 mg/dL Low 0.3 - 1.2 mg/dL [place] Bun/Cre Ratio 21 [place], [place] Calcium [Mass/Vol] 10.2 mg/dL 8.6 - 10. 4 mg/dL [place] Chloride [Moles/Vol] 104 mmol/L 98 - 10 7 mmol/L [place] CO2 [Moles/Vol] 21 mmol/L 20 - 31 mmol/L [place] Creatinine [Mass/Vol] 0.42 mg/dL Low 0.5 - 0.9 mg/dL [place] GFR >60 >60 mL/min [place] GFR Non- >60 >60 mL/min [place] GFR/1.73 sq M predicted among non-blacks MDRD (S/P/Bld) [Vol rate/Area] NOT REPORTED [place] GFR/1.73 sq M predicted among non-blacks MDRD (S/P/Bld) [Vol rate/Area] [place] Comment on above: Average GFR for 30-3 9 years old: 107 mL/min/1.73sq m Chronic Kidney Disease: <60 mL/min/1.73sq m Kidney failure: <15 mL/min/1.73sq m eGFR calculated using average adult body mass. Additional eGFR calculator available at: http://www.Vir-Sec/multiple_crcl_2012.htm Glucose [Mass/Vol] 100 mg/dL High 70 - 99 mg/dL [place] Interpretation and review of laboratory results Abnormal [place] Potassium [Moles/Vol] 3.8 mmol/L 3.7 - 5.3 mmol/L [place] Protein [Mass/Vol] 6.5 g/dL 6.4 - 8.3 g/dL [place] Sodium [Moles/Vol] 136 mmol/L 135 - 144 mmol/L [place] Urea nitrogen [Mass/Vol] 9 mg/dL 6 - 20 mg/dL [place] Otheron 03-26-2020 SARS-CoV-2 [place] Immature granulocytes (Bld) [#/Vol] NOT REPORTED [place] Urinalysis, reflex to micros copicon 03-26-2020 Bilirubin U[facility] [place] [place] Color, UA YELLOW YELLOW [place] Glucose, Ur Negative NEGATIVE [place] Ketones Ql (U) Negative NEGATIVE [place] Leukocyte esterase Test strip Ql (U) Negative NEGATIVE [place] Nitrite, Urine Negative NEGATIVE [place] pH, UA 7.0 [place] Protein (U) [Mass/Vol] Negative NEGATIVE [place], [place] Specific [place], UA 1.010 [place] Turbidity UA CLEAR CLEAR [place] Urinalysis Comments [place] Urine Hgb Negative NEGATIVE [place] Urobilinogen, Urine Normal Normal [place] Wet Prep, Genitalon 11-20-19 Direct Exam MODERATE EPITHELIAL CELLS Abnormal [place] Direct Exam FEW TRICHOMONAS SEEN Abnormal [place] Direct Exam MODERATE BACTERIA Abnormal [place] Direct Exam Few epithelials coated with bacteria resembling clue cells. Abnormal [place] Direct Exam NO FUNGAL ELEMENTS SEEN [place] Interpretation and review of laboratory results Abnormal [place] Special Requests NOT REPORTED [place] Specimen Description .VAGINAL SPECIMEN [place] WBC (Bld) [#/Vol] FEW WBC SEEN Abnormal [place] Basic Metabolic Panelon 06-05 Anion gap [Moles/Vol] 15 mmol/L 10 - 2 0 mmol/L [facility] Calcium [Mass/Vol] 8.6 mg/dL 8.4 - 10. 2 mg/dL [facility] Chloride [Moles/Vol] 102 mmol/L 98 - 10 8 mmol/L [facility] Creatinine [Mass/Vol] 0.36 mg/dL Low 0.40 - 1.10 [facility] GFR/1.73 sq M predicted among non-blacks MDRD (S/P/Bld) [Vol rate/Area] The eGFR should be used for monitoring renal function only and not for medication dosing. [facility] GFR/1.73 sq M.predicted CKD-EPI (S/P/Bld) [Vol rate/Area] 146 >=60 mL/min/1.73 m2 [facility] Glucose [Mass/Vol] 102 mg/dL High 65 - 99 mg/dL [facility] HCO3 [Moles/Vol] 25 mmol/L 21 - 32 mmol/L [facility] Interpretation and review of laboratory results Abnormal [facility] Potassium [Moles/Vol] 4.1 mmol/L 3.5 - 5.1 mmol/L [facility] Sodium [Moles/Vol] 138 mmol/L 135 - 145 mmol/L [facility] Urea nitrogen [Mass/Vol] 5 mg/dL Low 8 - 25 mg/dL [facility] Urea nitrogen/Creatinine [Mass ratio] 13.9 mg/mg [facility] Hepatic Function Panelon Albumin [Mass/Vol] 3.3 g/dL 3.2 - 5.2 g/dL [facility] ALP [Catalytic activity/Vol] 253 U/L High 40 - 140 U/L [facility] ALT [Catalytic activity/Vol] 686 U/L High 0 - 40 U/L [facility] AST [Catalytic activity/Vol] 349 U/L High 0 - 45 U/L [facility] Bilirubin [Mass/Vol] 6.0 mg/dL High 0 - 1.3 mg/dL [facility] Bilirubin.conjugated [Mass/Vol] 5.1 mg/dL High 0 - 0.4 mg/dL [facility] Interpretation and review of laboratory results Abnormal [facility] Protein [Mass/Vol] 6.8 g/dL 6 - 8 g/dL [facility] Bilirubin, Directon 06-16-19 20 Bilirubin.conjugated [Mass/Vol] 5.4 mg/dL High 0 - 0.4 mg/dL [facility] Interpretation and review of laboratory results Abnormal [facility] CBCon 06-16-2019 Erythrocyte distribution width (RBC) [Entitic vol] 15.1 % High 11.6 - 14.8 % [facility] Hematocrit (Bld) [Volume fraction] 38.5 % 36 - 46 % [facility] Hemoglobin (Bld) [Mass/Vol] 12.9 g/dL 12 - 16 g/dL [facility] Interpretation and review of laboratory results Abnormal [facility] MCH (RBC) [Entitic mass] 29.1 pg 26 - 34 pg [facility] MCHC (RBC) [Mass/Vol] 33.5 g/dL 31 - 3 7 g/dL [facility] MCV (RBC) [Entitic vol] 86.9 fL 80 - 100 fL [facility] Nucleated RBC (Bld) [#/Vol] 0.00 10*3/uL [facility] Nucleated RBC/100 WBC (Bld) [Ratio] 0.0 % [facility] Platelet mean volume (Bld) [Entitic vol] 11.3 fL 9 - 15.5 fL [facility] Platelets (Bld) [#/Vol] 185 10*3/uL [facility] RBC (Bld) [#/Vol] 4.43 10*6/uL [facility] WBC (Bld) [#/Vol] 6.48 10*3/uL [facility] Comprehensive Metabolic Pane [place] 06-16-2019 Albumin [Mass/Vol] 3.3 g/dL 3.2 - 5.2 g/dL [facility] ALP [Catalytic activity/Vol] 217 U/L High 40 - 140 U/L [facility] ALT [Catalytic activity/Vol] 825 U/L High 0 - 40 U/L [facility] Anion gap [Moles/Vol] 14 mmol/L 10 - 2 0 mmol/L [facility] AST [Catalytic activity/Vol] 544 U/L High 0 - 45 U/L [facility] Bilirubin [Mass/Vol] 5.9 mg/dL High 0 - 1.3 mg/dL [facility] Calcium [Mass/Vol] 8.4 mg/dL 8.4 - 10. 2 mg/dL [facility] Chloride [Moles/Vol] 103 mmol/L 98 - 10 8 mmol/L [facility] Creatinine [Mass/Vol] 0.32 mg/dL Low 0.40 - 1.10 [facility] GFR/1.73 sq M predicted among non-blacks MDRD (S/P/Bld) [Vol rate/Area] The eGFR should be used for monitoring renal function only and not for medication dosing. [facility] GFR/1.73 sq M.predicted CKD-EPI (S/P/Bld) [Vol rate/Area] 152 >=60 mL/min/1.73 m2 [facility] Glucose [Mass/Vol] 92 mg/dL 65 - 99 mg/dL [facility] HCO3 [Moles/Vol] 26 mmol/L 21 - 32 mmol/L [facility] Interpretation and review of laboratory results Abnormal [facility] Potassium [Moles/Vol] 4.3 mmol/L 3.5 - 5.1 mmol/L [facility] Protein [Mass/Vol] 6.2 g/dL 6 - 8 g/dL [facility] Sodium [Moles/Vol] 139 mmol/L 135 - 145 mmol/L [facility] Urea nitrogen [Mass/Vol] 4 mg/dL Low 8 - 25 mg/dL [facility] Urea nitrogen/Creatinine [Mass ratio] 12.5 mg/mg [facility] Bilirubin, Directon 06-15-19 20 Bilirubin.conjugated [Mass/Vol] 4.7 mg/dL High 0 - 0.4 mg/dL [facility] Interpretation and review of laboratory results Abnormal [facility] CBCon 06-15-2019 Erythrocyte distribution width (RBC) [Entitic vol] 14.8 % 11.6 - 14.8 % [facility] Hematocrit (Bld) [Volume fraction] 38.5 % 36 - 46 % [facility] Hemoglobin (Bld) [Mass/Vol] 12.6 g/dL 12 - 16 g/dL [facility] MCH (RBC) [Entitic mass] 29.0 pg 26 - 34 pg [facility] MCHC (RBC) [Mass/Vol] 32.7 g/dL 31 - 3 7 g/dL [facility] MCV (RBC) [Entitic vol] 88.5 fL 80 - 100 fL [facility] Nucleated RBC (Bld) [#/Vol] 0.00 10*3/uL [facility] Nucleated RBC/100 WBC (Bld) [Ratio] 0.0 % [facility] Platelet mean volume (Bld) [Entitic vol] 11.0 fL 9 - 15.5 fL [facility] Platelets (Bld) [#/Vol] 155 10*3/uL [facility] RBC (Bld) [#/Vol] 4.35 10*6/uL [facility] WBC (Bld) [#/Vol] 5.74 10*3/uL [facility] Comprehensive Metabolic Pane [place] 06-15-2019 Albumin [Mass/Vol] 3.2 g/dL 3.2 - 5.2 g/dL [facility] ALP [Catalytic activity/Vol] 193 U/L High 40 - 140 U/L [facility] ALT [Catalytic activity/Vol] 888 U/L High 0 - 40 U/L [facility] Anion gap [Moles/Vol] 15 mmol/L 10 - 2 0 mmol/L [facility] AST [Catalytic activity/Vol] 667 U/L High 0 - 45 U/L [facility] Bilirubin [Mass/Vol] 5.2 mg/dL High 0 - 1.3 mg/dL [facility] Calcium [Mass/Vol] 8.2 mg/dL Low 8.4 - 10. 2 mg/dL [facility] Chloride [Moles/Vol] 103 mmol/L 98 - 10 8 mmol/L [facility] Creatinine [Mass/Vol] 0.36 mg/dL Low 0.40 - 1.10 [facility] GFR/1.73 sq M predicted among non-blacks MDRD (S/P/Bld) [Vol rate/Area] The eGFR should be used for monitoring renal function only and not for medication dosing. [facility] GFR/1.73 sq M.predicted CKD-EPI (S/P/Bld) [Vol rate/Area] 146 >=60 mL/min/1.73 m2 [facility] Glucose [Mass/Vol] 122 mg/dL High 65 - 99 mg/dL [facility] HCO3 [Moles/Vol] 22 mmol/L 21 - 32 mmol/L [facility] Interpretation and review of laboratory results Abnormal [facility] Potassium [Moles/Vol] 3.8 mmol/L 3.5 - 5.1 mmol/L [facility] Protein [Mass/Vol] 5.8 g/dL Low 6 - 8 g/dL [facility] Sodium [Moles/Vol] 136 mmol/L 135 - 145 mmol/L [facility] Urea nitrogen [Mass/Vol] 5 mg/dL Low 8 - 25 mg/dL [facility] Urea nitrogen/Creatinine [Mass ratio] 13.9 mg/mg [facility] [place] HEPATOBILIARY WO EJECTION FRACTIONon 06-15-2019 [...] small bowel are not visualized. [facility] Opacified liver with no visualization of [...] regarding the presence or absence of cholecystitis. [employer] Workstation ID: [id number] [facility] Interface, Rad In Fuji Speechq - [...] regarding the presence or absence of cholecystitis. [employer] Workstation ID: [id number] [facility] APTTon 06-14-2019 aPTT Coag (Bld) [Time] 31.1 s [facility] [place] Comment on above: PTT Therapeutic Range: 61.7-88.4 Therapeutic range corresponds to plasma heparin levels of 0.3-0.7 U/mL. Acetaminophen Levelon 2019 Acetaminophen [Mass/Vol] 9.1 [facility] Interpretation and review of laboratory results Normal [facility] Bilirubin, Directon 06-14-19 20 Bilirubin.conjugated [Mass/Vol] 4.3 mg/dL High 0 - 0.4 mg/dL [facility] Interpretation and review of laboratory results Abnormal [facility] CBC WITH AUTO DIFFERENTIALon 06-14-2019 Erythrocyte distribution width (RBC) [Entitic vol] 14.5 % 11.6 - 14.8 % [facility] Hematocrit (Bld) [Volume fraction] 34.6 % Low 36 - 46 % [facility] Hemoglobin (Bld) [Mass/Vol] 11.6 g/dL Low 12 - 16 g/dL [facility] Interpretation and review of laboratory results Abnormal [facility] MCH (RBC) [Entitic mass] 29.7 pg 26 - 34 pg [facility] MCHC (RBC) [Mass/Vol] 33.5 g/dL 31 - 3 7 g/dL [facility] MCV (RBC) [Entitic vol] 88.5 fL 80 - 100 fL [facility] Nucleated RBC (Bld) [#/Vol] 0.00 10*3/uL [facility] Nucleated RBC/100 WBC (Bld) [Ratio] 0.0 % [facility] Platelet mean volume (Bld) [Entitic vol] 10.8 fL 9 - 15.5 fL [facility] Platelets (Bld) [#/Vol] 172 10*3/uL [facility] RBC (Bld) [#/Vol] 3.91 10*6/uL Low [facility] WBC (Bld) [#/Vol] 7.28 10*3/uL [facility] ABDOMEN PELVIS W IV CONTR AST Additional Contrast? Noneon 06-14-2019 Ward, Mhpn Incoming Radiant Results From [employer] - 06/14/2019 12:27 AM EDT EXAMINATION: CT [...] liver function panel and consider ultrasound imaging. [place] Pericholecystic fluid versus gallbladder wall thickening and additional periportal edema. There are no visualized stones in the gallbladder gallbladder and/or hepatic pathology are suspected. Correlate with liver function panel and consider ultrasound imaging. [place] EXAMINATION: CT ABDOMEN PELVIS W IV [...] structures demonstrate no acute or concerning abnormality. [place] COMPARISON IMPORTon 06-13 This order has been auto-finalized and does not contain a result. [facility] Comprehensive Metabolic Pane [place] 06-14-2019 Albumin [Mass/Vol] 3.0 g/dL Low 3.2 - 5.2 g/dL [facility] ALP [Catalytic activity/Vol] 183 U/L High 40 - 140 U/L [facility] ALT [Catalytic activity/Vol] 808 U/L High 0 - 40 U/L [facility] Anion gap [Moles/Vol] 16 mmol/L 10 - 2 0 mmol/L [facility] AST [Catalytic activity/Vol] 592 U/L High 0 - 45 U/L [facility] Bilirubin [Mass/Vol] 4.9 mg/dL High 0 - 1.3 mg/dL [facility] Calcium [Mass/Vol] 8.4 mg/dL 8.4 - 10. 2 mg/dL [facility] Chloride [Moles/Vol] 104 mmol/L 98 - 10 8 mmol/L [facility] Creatinine [Mass/Vol] 0.43 mg/dL 0.40 - 1.10 [facility] GFR/1.73 sq M predicted among non-blacks MDRD (S/P/Bld) [Vol rate/Area] The eGFR should be used for monitoring renal function only and not for medication dosing. [facility] GFR/1.73 sq M.predicted CKD-EPI (S/P/Bld) [Vol rate/Area] 138 >=60 mL/min/1.73 m2 [facility] Glucose [Mass/Vol] 79 mg/dL 65 - 99 mg/dL [facility] HCO3 [Moles/Vol] 21 mmol/L 21 - 32 mmol/L [facility] Interpretation and review of laboratory results Abnormal [facility] Potassium [Moles/Vol] 3.8 mmol/L 3.5 - 5.1 mmol/L [facility] Protein [Mass/Vol] 5.7 g/dL Low 6 - 8 g/dL [facility]th Sodium [Moles/Vol] 137 mmol/L 135 - 145 mmol/L [facility] Urea nitrogen [Mass/Vol] 9 mg/dL 8 - 25 mg/dL [facility] Urea nitrogen/Creatinine [Mass ratio] 20.9 mg/mg High [facility] DRUGS OF ABUSE SCREEN, URINE on 06-14-2019 Amphetamines Ql (U) None Detected None Detected [facility] Comment on above: Urine Amphetamine Cu toff: < 1000 ng/mL = None Detected Barbiturates Screen Ql (U) None Detected None Detected [facility] Comment on above: Urine Barbiturates C utoff: < 200 ng/mL = None Detected Benzodiazepines Ql (U) None Detected None Detected [facility] Comment on above: Urine Benzodiazepine Cutoff: < 300 ng/mL = None Detected Cannabinoids Screen Ql (U) None Detected None Detected [facility] Comment on above: Urine Cannabinoids C utoff: < 50 ng/mL = None Detected Cocaine Ql (U) Positive Abnormal None Detected [facility] Comment on above: Urine Cocaine Cutoff : < 300 ng/mL = None Detected Interpretation and review of laboratory results Abnormal [facility] Methadone Screen Ql (U) None Detected Non e Detected [facility] Comment on above: Urine Methadone Cuto ff: < 300 ng/mL = None Detected Opiates Screen Ql (U) None Detected None Detected [facility] Comment on above: Urine Opiates Cutoff : < 300 ng/mL = None Detected Oxycodone Ql (U) None Detected None Detected [facility] Comment on above: Urine Oxycodone Cuto ff: < 100 ng/mL = None Detected Screen results should be used for treatment purposes only. Specimen will be kept for 2 weeks, if the sample is adequate. Confirmation testing can be initiated by calling the lab within 2 weeks. [facility] HEPATITIS PANEL, ACUTEon HAV IgM Ql (S) Negative Negative [facility] HBV core IgM Ql (S) Negative Negative [facility] HBV surface Ag Ql (S) Negative Negative [facility] HCV Ab Ql (S) Positive Abnormal Negative [facility] Comment on above: A positive antibody test requires additional follow-up testing, Hepatitis C Virus Quantitation, to determine if a person is currently infected with Hepatitis C. Interpretation and review of laboratory results Abnormal [facility] Test performed using [employer] DEVIKA immunoassay system [facility] Lactic Acid, Plasmaon 2019 Interpretation and review of laboratory results Normal [facility] Lactate [Moles/Vol] 0.8 mmol/L 0.6 - 2 mmol/L [facility] MORPHOLOGYon 06-14-2019 Platelets LM Ql (Bld) Normal Normal [facility] RBC morphology finding Nom (Bld) Normal [facility] MRCPon 06-14-2019 EXAMINATION: MRCP 03/15/2024 HISTORY: [...] Axial T1-weighted images were obtained in- and [id number]. Axial diffusion-weighted imaging was also performed. FINDINGS: The liver overall appears enlarged with the right hepatic lobe measuring 22.6 cm fdvpcjky-vb-jcfsooy r. The spleen measures 14.6 cm rcpjkjac-rr-kiftvjr r and is also mildly enlarged. There [...] the right kidney. Bowel pattern is nonobstructive. [facility] 1. Re-demonstration of diffuse periportal edema as well as significant circumferential gallbladder wall edema similar to that seen on prior CT study. 2. Mild hepatosplenomegaly. 3. No obvious gallstones. Negative for biliary or pancreatic ductal dilatation. Negative for choledocholithiasis . 4. Trace volume of abdominal ascites. [employer] [facility] Workstation ID: [id number] [facility] Interface, Rad In [employer] Speechq - 06/14/2019 4:45 PM EDT EXAMINATION: [...] Axial T1-weighted images were obtained in- and [id number]. Axial diffusion-weighted imaging was also performed. FINDINGS: The liver overall appears enlarged with the right hepatic lobe measuring 22.6 cm pjnmivpo-iw-srmpzrd r. The spleen measures 14.6 cm olfpqqya-dk-hixjsar r and is also mildly enlarged. There [...] . 4. Trace volume of abdominal ascites. [employer] [facility] Workstation ID: [id number] [facility] Manual Differentialon 2019 Basophils (Bld) [#/Vol] 0.00 10*3/uL [facility] Basophils/100 WBC (Bld) 0.0 % [facility] Eosinophils (Bld) [#/Vol] 0.00 10*3/uL [facility] Eosinophils/100 WBC (Bld) 0.0 % [facility] Lymphocytes (Bld) [#/Vol] 3.28 10*3/uL [facility] Lymphocytes/100 WBC (Bld) 37.0 % [facility] Monocytes (Bld) [#/Vol] 0.44 10*3/uL [facility] Monocytes/100 WBC (Bld) 6.0 % [facility] Neutrophils (Bld) [#/Vol] 3.57 10*3/uL [facility] Neutrophils/100 WBC (Bld) 49.0 % [facility] Variant lymphocytes/100 WBC (Bld) 8.0 % [facility] PT/INRon 06-14-2019 INR Coag (PPP) [Relative time] 1.3 {INR} [facility] Interpretation and review of laboratory results Abnormal [facility] PT Coag (PPP) [Time] 15.5 s [facility] During the induction phase of oral anticoagulation, the INR may not reflect the anticoagulation status of the patient. Therapeutic ranges for INR's are: Most clinical situations: INR 2.0-3.0 Mechanical Prosthetic Valve: INR 2.5-3.5 Critical: INR >5.0 [facility] Protime-INRon 06-14-2019 INR Coag (PPP) [Relative time] 1.2 {INR} [place] Comment on above: * THERAPY INDICATIONS * REFERENCE RANGES Pts not on anti-coagulants 1.0 - 1.5 INR Low risk pts on anti-coagulants 2.0 - 3.0 INR High risk pts on anti-coagulants 2.5 - 3.5 INR Prevention of atrial thrombo-embolism 3.0 - 4.5 INR Interpretation and review of laboratory results Abnormal [facility], [place] PT Coag (PPP) [Time] 11.7 s [place] Salicylate Levelon 0 Interpretation and review of laboratory results Abnormal [facility] Salicylates [Mass/Vol] mg/dL Low 10 - 20 mg/dL [facility] URINALYSISon 06-14-2019 Bacteria Auto Ql (U) Rare Abnormal None Se en /hpf [facility] Bilirubin Ql (U) Positive Abnormal Negative [facility] th Comment on above: False positive urine bilirubins can occur in the setting of a large amount of hemoglobin and secondary to medications including anti-inflammatory agents, rifampin, and pyridium. Clarity Refractometry automated (U) Clear Clear [facility] Color (U) Erica Abnormal Colorless, Yellow [facility] Epithelial cells.squamous Auto (Urine sed) [#/Area] 4 [facility] Glucose Auto test strip (U) [Mass/Vol] Negative Negative mg/dL [facility] Hemoglobin Auto test strip Ql (U) Negative Negative [facility] Interpretation and review of laboratory results Abnormal [facility] Ketones (U) [Mass/Vol] >=80 Abnormal Negat krystal mg/dL [facility] Leukocyte esterase Auto test strip Ql (U) Negative Negative [facility] Mucus Auto (Urine sed) [#/Area] Rare None Seen, Rare /lpf [facility] Nitrite Auto test strip Ql (U) Negative Negative [facility] pH (U) 6.0 [pH] [facility] Protein (U) [Mass/Vol] 30 Abnormal Negat krystal mg/dL [facility] Comment on above: False positive resul ts may occur in urines with large amounts of hemoglobin, pH greater than 8.0, contrast medium, or disinfectants including ammonium compounds. RBC Auto (Urine sed) [#/Area] 2 [facility] Specific gravity (U) [Rel density] 1.028 High [facility] Urobilinogen (U) [Mass/Vol] >=4.0 Abnormal <2.0 mg/dL [facility] WBC Auto (Urine sed) [#/Area] 2 [facility] Microscopic examination is performed on all urinalysis samples and only positive findings are reported. The test for blood on the chemical analytic portion of urinalysis may also be positive due to hemoglobinuria and myoglobinuria and if red blood cells are present they are quantified by microscopic examination. [facility] US ABDOMEN LIMITED STUDYon 0 06-14-2019 [...] liver likely small hemangioma. Workstation ID: [id number] EXAMINATION: US ABDOMEN LIMITED STUDY HISTORY: RUQ [...] cm in length. No hydronephrosis. [facility] 1. Contracted gallbladder limits evaluation. No cholelithiasis identified. Nonspecific edematous gallbladder wall thickening and reported positive sonographic Short's sign, cannot exclude acalculus cholecystitis. No biliary ductal dilatation. 2. 1.3 cm echogenic lesion left lobe of the liver likely small hemangioma. Workstation ID: [id number] Amylaseon 06-13-2019 Amylase [Catalytic activity/Vol] 22 U/L Low 28 - 100 U/L [place] CBC Auto Differentialon Basophils (Bld) [#/Vol] 0.00 10*3/uL [place] Basophils/100 WBC (Bld) 1 % 0 - 2 % M [place] Differential Type YES [facility] [place] Eosinophils (Bld) [#/Vol] 0.00 10*3/uL [place] Eosinophils/100 WBC (Bld) 0 % 0 - 5 % [place] Erythrocyte distribution width (RBC) [Ratio] 14.9 % 12.1 - 15.2 % [place] Hematocrit (Bld) [Volume fraction] 43.3 % 36 - 46 % [place] Hemoglobin (Bld) [Mass/Vol] 14.3 g/dL 12 - 16 g/dL [place] Lymphocytes (Bld) [#/Vol] 2.50 10*3/uL [place] Lymphocytes/100 WBC (Bld) 30 % 15 - 40 % [place] MCH (RBC) [Entitic mass] 28.8 pg 26 - 34 pg [place] MCHC (RBC) [Mass/Vol] 33.1 g/dL 31 - 3 7 g/dL [place] MCV (RBC) [Entitic vol] 87.2 fL 80 - 100 fL [place] Monocytes (Bld) [#/Vol] 0.70 10*3/uL [place] Monocytes/100 WBC (Bld) 8 % 4 - 8 % [place] Platelet mean volume (Bld) [Entitic vol] NOT REPORTED 6 - 12 fL [place] Platelets (Bld) [#/Vol] 203 10*3/uL [place] Platelets (Bld) [#/Vol] NOT REPORTED [place] RBC (Bld) [#/Vol] 4.97 10*6/uL 4 - 5.2 m/uL [place] RBC morphology finding Nom (Bld) NOT REPORTED [place] Segmented neutrophils/100 WBC (Bld) 61 % 47 - 75 % [place] Segs Absolute 5.20 [place] WBC (Bld) [#/Vol] 8.4 10*3/uL [place] WBC (Bld) [#/Vol] NOT REPORTED per 100 WBC [place] WBC Morphology NOT REPORTED [place] Comprehensive Metabolic Pane l w/ Reflex to MGon 06-13-2019 Albumin [Mass/Vol] 4.1 g/dL 3.5 - 5.2 g/dL [place] Albumin/Globulin [Mass ratio] NOT REPORTED [place] ALP [Catalytic activity/Vol] 255 U/L High 35 - 104 U/L [place] ALT [Catalytic activity/Vol] 1116 U/L High 5 - 33 U/L [place] Anion gap [Moles/Vol] 17 mmol/L 9 - 17 mmol/L [place] AST [Catalytic activity/Vol] 665 U/L High <32 [place] Bilirubin Ql (U) 6.52 mg/dL High 0.3 - 1.2 mg/dL [place] Bun/Cre Ratio 17 [place] Calcium [Mass/Vol] 10.1 mg/dL 8.6 - 10. 4 mg/dL [place] Chloride [Moles/Vol] 95 mmol/L Low 98 - 10 7 mmol/L [place] CO2 [Moles/Vol] 24 mmol/L 20 - 31 mmol/L [place] Creatinine [Mass/Vol] 0.82 mg/dL 0.5 - 0.9 mg/dL [place] GFR >60 >60 mL/min [place] GFR Non- >60 >60 mL/min [place] GFR/1.73 sq M predicted among non-blacks MDRD (S/P/Bld) [Vol rate/Area] [place] Comment on above: Average GFR for 20-2 9 years old: 116 mL/min/1.73sq m Chronic Kidney Disease: <60 mL/min/1.73sq m Kidney failure: <15 mL/min/1.73sq m eGFR calculated using average adult body mass. Additional eGFR calculator available at: http://www.[employer]/multiple_crcl_2012.htm GFR/1.73 sq M predicted among non-blacks MDRD (S/P/Bld) [Vol rate/Area] NOT REPORTED [place] Glucose [Mass/Vol] 134 mg/dL High 70 - 99 mg/dL [place] Interpretation and review of laboratory results Abnormal [place] Potassium [Moles/Vol] 3.7 mmol/L 3.7 - 5.3 mmol/L [place] Protein [Mass/Vol] 8.1 g/dL 6.4 - 8.3 g/dL [place] Sodium [Moles/Vol] 136 mmol/L 135 - 144 mmol/L [place] Urea nitrogen [Mass/Vol] 14 mg/dL 6 - 20 mg/dL [place] Drug screen multi urineon Amphetamine Screen, Ur Negative NEGATIVE [place] Comment on above: (Positive cutoff 500 ng/mL) Barbiturate Screen, Ur Negative NEGATIVE [place] Comment on above: (Positive cutoff 200 ng/mL) Benzodiazepine Screen, Urine Negative NEGATIVE [place] Comment on above: (Positive cutoff 150 ng/mL) Buprenorphine Urine NOT REPORTED NEGATIVE [place] Cannabinoid Scrn, Ur Negative NEGATIVE [place] Comment on above: (Positive cutoff 50 ng/mL) Cocaine Metabolite, Urine Positive Abnormal NEGATIVE [place] Comment on above: (Positive cutoff 150 ng/mL) Interpretation and review of laboratory results Abnormal [place] MDMA, Urine NOT REPORTED NEGATIVE [place] Methadone Screen, Urine Negative NEGATIVE [place] Comment on above: (Positive cutoff 200 ng/mL) Methamphetamine, Urine Negative NEGATIVE [place] Comment on above: (Positive cutoff 500 ng/mL) Opiates, Urine Positive Abnormal NEGATIVE [place] Comment on above: (Positive cutoff 100 ng/mL) Oxycodone Screen, Ur Negative NEGATIVE [place] Comment on above: (Positive cutoff 100 ng/mL) Phencyclidine, Urine Negative NEGATIVE [place] Comment on above: (Positive cutoff 25 ng/mL) Propoxyphene, Urine Negative NEGATIVE [place] Comment on above: (Positive cutoff 300 ng/mL) Test Information NOT REPORTED [place] Tricyclic Antidepressants, Urine Negative NEGATIVE [place] Comment on above: (Positive cutoff 300 ng/mL) Drug screen results are to be used for medical purposes only. All positive results are unconfirmed. Testing for employment or legal uses should be sent to a reference laboratory for confirmation. Lactic Acidon 06-13-2019 Lactate [Moles/Vol] 1.2 mmol/L 0.5 - 2. 2 mmol/L [place] Lipaseon 06-13-2019 Lipase [Catalytic activity/Vol] 8 U/L Low 13 - 60 U/L [place] Microscopic Urinalysison Amorphous, UA NOT REPORTED None [place] Bacteria, UA 2+ Abnormal None [place] Casts UA 5 TO 10 HYALINE /LPF [place] Casts UA 2 TO 5 WAXY /LPF [place] Crystals, UA NOT REPORTED None /HPF [place] Epithelial Cells UA LOADED /HPF [place] Interpretation and review of laboratory results Abnormal [place] Mucus, UA 4+ Abnormal None [place] Other Observations UA NOT REPORTED NOT REQ. M [place] RBC (U) [#/Vol] 5 TO 10 [place] Renal Epithelial, UA NOT REPORTED 0 /HPF [place] Trichomonas, UA NOT REPORTED None [place] WBC, UA 10 TO 20 0 /HPF [place] Yeast, UA NOT REPORTED None [place] Otheron 06-13-2019 Interpretation and review of laboratory results Abnormal [place] Immature granulocytes (Bld) [#/Vol] NOT REPORTED 0 % [place] , Urineon 0 Beta HCG ( test) Ql (U) Negative NEGATIVE [place] Urinalysis, reflex to micros copicon 06-13-2019 Bilirubin Urine 3+ Abnormal NEGATIVE [place] Color, UA BROWN Abnormal YELLOW [place] Glucose, Ur Negative NEGATIVE [place] Interpretation and review of laboratory results Abnormal [place] Ketones Ql (U) MODERATE Abnormal NEGATIVE [place] Leukocyte esterase Test strip Ql (U) 1+ Abnormal NEGATIVE [place] Nitrite, Urine Positive Abnormal NEGATIVE [place] pH, UA 5.0 [place] Protein (U) [Mass/Vol] 1+ Abnormal NEGATIVE [place] Specific [place], UA 1.020 [place] Turbidity UA CLEAR CLEAR [place] Urinalysis Comments [place] Urine Hgb TRACE Abnormal NEGATIVE [place] Urobilinogen, Urine 12 mg/dL Abnormal Normal [place] Vital Signs Date Time Vital Sign Value Performing Clinician Facility 10-05-2023 21:00-0400 Body temperature 99.61 [degF] Violet Juarez MD Work Phone: [facility] 10-05-2023 21:00-0400 Diastolic blood pressure 68 mm[Hg] Violet Juarez MD Work Phone: [facility] 10-05-2023 21:00-0400 Heart rate 93 /min Violet Juarez MD Work Phone: [facility] 10-05-2023 21:00-0400 Respiratory rate 16 /min Violet Juarez MD Work Phone: [facility] 10-05-2023 21:00-0400 SaO2% (BldA) [Mass fraction] 97 % Violet Juarez MD Work Phone: [facility] 10-05-2023 21:00-0400 Systolic blood pressure 114 mm[Hg] Violet Juarez MD Work Phone: [facility] 05-13-2023 11:27-0500 Body temperature 98.6 [degF] Jonathan Martinez [facility] 05-13-2023 11:27-0500 Diastolic blood pressure 78 mm[Hg] Jonathan Martinez [facility] 05-13-2023 11:27-0500 Heart rate 83 /min Jonathan Martinez [facility] 05-13-2023 11:27-0500 Respiratory rate 18 /min Jonathan Martinez [facility] 05-13-2023 11:27-0500 SaO2% (BldA) [Mass fraction] 97 % Jonathan Martinez [facility] 05-13-2023 11:27-0500 Systolic blood pressure 113 mm[Hg] Jonathan Martinez [facility] 05-11-2023 21:49-0500 Body temperature 98.06 [degF] [facility] 05-11-2023 21:49-0500 Diastolic blood pressure 84 mm[Hg] [facility] 05-11-2023 21:49-0500 Heart rate 105 /min [facility] 05-11-2023 21:49-0500 Respiratory rate 17 /min [facility] 05-11-2023 21:49-0500 SaO2% (BldA) [Mass fraction] 97 % [facility] 05-11-2023 21:49-0500 Systolic blood pressure 130 mm[Hg] [facility] 05-10-2023 11:41-0500 Body height 160 cm Chet Berumen DO Work Phone: [facility] [employer] 05-10-2023 11:41-0500 Body mass index (BMI) [Ratio] 44.29 kg/m2 Chet Berumen Work Phone: [facility] [employer] 05-10-2023 11:41-0500 Body temperature 97.9 [degF] Chet Berumen Work Phone: [facility] [employer] 05-10-2023 11:41-0500 Body weight 113.4 kg Chet Berumen DO Work Phone: [facility] [employer] 05-10-2023 11:41-0500 Diastolic blood pressure 76 mm[Hg] Chet Berumen Work Phone: [facility] [employer] 05-10-2023 11:41-0500 Heart rate 94 /min Chet Berumen Work Phone: [facility] [employer] 05-10-2023 11:41-0500 Respiratory rate 18 /min Chet Lachelle STEWART Work Phone: [facility] [employer] 05-10-2023 11:41-0500 SaO2% (BldA) [Mass fraction] 96 % Chet Berumen DO Work Phone: [facility] [employer] 05-10-2023 11:41-0500 Systolic blood pressure 146 mm[Hg] Chet Lachelle STEWART Work Phone: [facility] [employer] 09-04-2022 11:27-0400 Body height 160 cm Erin Lacy MD Work Phone: [employer] 09-04-2022 11:27-0400 Body mass index (BMI) [Ratio] 44.99 kg/m2 Erin Lacy MD Work Phone: [facility] 09-04-2022 11:27-0400 Body temperature 98.2 [degF] Erin Lacy MD Work Phone: [facility] 09-04-2022 11:27-0400 Body weight 115.21 kg Erin Lacy MD Work Phone: [facility] 09-04-2022 11:27-0400 Diastolic blood pressure 71 mm[Hg] Erin Lacy MD Work Phone: [facility] 09-04-2022 11:27-0400 Heart rate 88 /min Erin Lacy MD Work Phone: [facility] 09-04-2022 11:27-0400 Respiratory rate 18 /min Erin Lacy MD Work Phone: [facility] 09-04-2022 11:27-0400 SaO2% (BldA) [Mass fraction] 97 % Erin Lacy MD Work Phone: [facility] 09-04-2022 11:27-0400 Systolic blood pressure 124 mm[Hg] Erin Lacy MD Work Phone: [facility] 06-29-2022 09:49-0400 Diastolic blood pressure 57 mm[Hg] Todd Bing [facility] 06-29-2022 09:49-0400 Heart rate 73 /min Todd Bing [facility] 06-29-2022 09:49-0400 Mean blood pressure 76 mm[Hg] Todd Bing [facility] 06-29-2022 09:49-0400 Respiratory rate 16 /min Todd Bing [facility] 06-29-2022 09:49-0400 Systolic blood pressure 113 mm[Hg] Todd Bing [facility] 05-19-2022 19:28-0400 Body height 160 cm Erin Lacy MD Work Phone: [facility] 05-19-2022 19:28-0400 Body mass index (BMI) [Ratio] 45.17 kg/m2 Erin Lacy MD Work Phone: [facility] 05-19-2022 19:28-0400 Body weight 115.67 kg Erin Lacy MD Work Phone: [facility] 05-19-2022 19:25-0400 Body temperature 98.29 [degF] Erin Lacy MD Work Phone: [facility] 05-19-2022 19:25-0400 Diastolic blood pressure 68 mm[Hg] Erin Lacy MD Work Phone: [facility] 05-19-2022 19:25-0400 Heart rate 78 /min Erin Lacy MD Work Phone: [facility] 05-19-2022 19:25-0400 Respiratory rate 16 /min Erin Lacy MD Work Phone: [facility] 05-19-2022 19:25-0400 SaO2% (BldA) [Mass fraction] 98 % Erin Lacy MD Work Phone: [facility] 05-19-2022 19:25-0400 Systolic blood pressure 110 mm[Hg] Erin Lacy MD Work Phone: [facility] 05-11-2022 19:17-0500 Body height 160 cm Anuj Quinn MD Work Phone: [facility] 05-11-2022 19:17-0500 Body mass index (BMI) [Ratio] 45.06 kg/m2 Anuj Quinn MD Work Phone: [facility] 05-11-2022 19:17-0500 Body temperature 98.01 [degF] Anuj Quinn MD Work Phone: [facility] 05-11-2022 19:17-0500 Body weight 115.39 kg Anuj Quinn MD Work Phone: [facility] 05-11-2022 19:17-0500 Diastolic blood pressure 91 mm[Hg] Anuj Quinn MD Work Phone: [facility] 05-11-2022 19:17-0500 Heart rate 78 /min Anuj Quinn MD Work Phone: [facility] 05-11-2022 19:17-0500 Respiratory rate 18 /min Anuj Quinn MD Work Phone: [facility] 05-11-2022 19:17-0500 SaO2% (BldA) [Mass fraction] 96 % Anuj Quinn MD Work Phone: [facility] 05-11-2022 19:17-0500 Systolic blood pressure 121 mm[Hg] Anuj Quinn MD Work Phone: [facility] 10-12-2021 18:31-0400 Heart rate 93 /min Rishabh Mancini MD Work Phone: [facility] 10-12-2021 18:31-0400 Respiratory rate 16 /min Rishabh Mancini MD Work Phone: [facility] 10-12-2021 18:31-0400 SaO2% (BldA) [Mass fraction] 97 % Rishabh Mancini MD Work Phone: [facility] 10-12-2021 18:12-0400 Body height 160 cm Rishabh Mancini MD Work Phone: [facility] 10-12-2021 18:12-0400 Body mass index (BMI) [Ratio] 47.12 kg/m2 Rishabh Mancini MD Work Phone: [facility] 10-12-2021 18:12-0400 Body temperature 99.19 [degF] Rishabh Mancini MD Work Phone: [facility] 10-12-2021 18:12-0400 Body weight 120.66 kg Rishabh Mancini MD Work Phone: [facility] 10-12-2021 18:12-0400 Diastolic blood pressure 77 mm[Hg] Rishabh Mancini MD Work Phone: [facility] [employer] 10-12-2021 18:12-0400 Systolic blood pressure 126 mm[Hg] Rishabh Mancini MD Work Phone: [facility] [employer] 07-22-2021 10:38-0400 Body height 160 cm [facility] 07-22-2021 10:38-0400 Body mass index (BMI) [Ratio] 47.63 kg/m2 Clark Moser MD [facility] 07-22-2021 10:38-0400 Body temperature 97.3 [degF] Clark [facility]oser [facility] 07-22-2021 10:38-0400 Body weight 121.97 kg Clark Moser MD [facility] 07-22-2021 10:38-0400 Diastolic blood pressure 88 mm[Hg] Clark Moser [facility] 07-22-2021 10:38-0400 Heart rate 104 /min Clark Moser MD [facility] 07-22-2021 10:38-0400 Respiratory rate 18 /min Clark Moser MD [facility] 07-22-2021 10:38-0400 SaO2% (BldA) [Mass fraction] 95 % Clark Moser MD [facility] 07-22-2021 10:38-0400 Systolic blood pressure 126 mm[Hg] Clark Moser MD [facility] 05-15-2021 09:11-0500 Body height [address] [facility] 05-14-2021 10:41-0500 Body height 160 cm Farhat Vang MD Work Phone: [facility] 05-14-2021 10:41-0500 Body mass index (BMI) [Ratio] 44.96 kg/m2 Farhat Vang MD Work Phone: [facility] 05-14-2021 10:41-0500 Body temperature 97.81 [degF] Farhat Vang MD Work Phone: [facility] 05-14-2021 10:41-0500 Body weight 115.12 kg Farhat Vang MD Work Phone: [facility] 05-14-2021 10:41-0500 Diastolic blood pressure 78 mm[Hg] Farhat Vang MD Work Phone: [facility] 05-14-2021 10:41-0500 Heart rate 98 /min Farhat Vang MD Work Phone: [facility] 05-14-2021 10:41-0500 Respiratory rate 18 /min Farhat Vang MD Work Phone: [facility] 05-14-2021 10:41-0500 SaO2% (BldA) [Mass fraction] 97 % Farhat Vang MD Work Phone: [facility] 05-14-2021 10:41-0500 Systolic blood pressure 124 mm[Hg] Farhat Vang MD Work Phone: [facility] 04-16-2021 10:15-0500 Body height 160 cm Farhat Vang MD Work Phone: [facility] 04-16-2021 10:15-0500 Body mass index (BMI) [Ratio] 44.44 kg/m2 Farhat Vang MD Work Phone: [facility] 04-16-2021 10:15-0500 Body temperature 98.01 [degF] Farhat Vang MD Work Phone: [facility] 04-16-2021 10:15-0500 Body weight 113.81 kg Farhat Vang MD Work Phone: [facility] 04-16-2021 10:15-0500 Diastolic blood pressure 78 mm[Hg] Farhat Vang MD Work Phone: [facility] 04-16-2021 10:15-0500 Heart rate 100 /min Farhat Vang MD Work Phone: [facility] 04-16-2021 10:15-0500 Respiratory rate 18 /min Farhat Vang MD Work Phone: [facility] 04-16-2021 10:15-0500 SaO2% (BldA) [Mass fraction] 96 % Farhat Vang MD Work Phone: [facility] 04-16-2021 10:15-0500 Systolic blood pressure 122 mm[Hg] Farhat Vang MD Work Phone: [facility] 03-23-2021 12:40-0500 Body height 160 cm Anuj Quinn MD Work Phone: [facility] [employer] 03-23-2021 12:40-0500 Body mass index (BMI) [Ratio] 44.46 kg/m2 Anuj Quinn MD Work Phone: [facility] 03-23-2021 12:40-0500 Body temperature 99.7 [degF] Anuj Quinn MD Work Phone: [facility] [employer] 03-23-2021 12:40-0500 Body weight 113.85 kg Anuj Quinn MD Work Phone: [facility] 03-23-2021 12:40-0500 Diastolic blood pressure 74 mm[Hg] Anuj Quinn MD Work Phone: [facility] 03-23-2021 12:40-0500 Heart rate 107 /min Anuj Quinn MD Work Phone: [facility] 03-23-2021 12:40-0500 Respiratory rate 16 /min Anuj Quinn MD Work Phone: [facility] 03-23-2021 12:40-0500 SaO2% (BldA) [Mass fraction] 96 % Anuj Quinn MD Work Phone: [facility] 03-23-2021 12:40-0500 Systolic blood pressure 131 mm[Hg] Anuj Quinn MD Work Phone: [facility] 01-15-2021 10:43-0500 Body height 160 cm Holland Ann MD Work Phone: [facility] 01-15-2021 10:43-0500 Body mass index (BMI) [Ratio] 42.55 kg/m2 Holland Ann MD Work Phone: [facility] 01-15-2021 10:43-0500 Body temperature 97.39 [degF] Holland Ann MD Work Phone: [facility] 01-15-2021 10:43-0500 Body weight 108.95 kg Holland Ann MD Work Phone: [facility] 01-15-2021 10:43-0500 Diastolic blood pressure 66 mm[Hg] Holland Ann MD Work Phone: [facility] 01-15-2021 10:43-0500 Heart rate 101 /min Holland Ann MD Work Phone: [facility] 01-15-2021 10:43-0500 SaO2% (BldA) [Mass fraction] 96 % Holland Ann MD Work Phone: [facility] 01-15-2021 10:43-0500 Systolic blood pressure 112 mm[Hg] Holland nAn MD Work Phone: [facility] 12-27-2020 18:15-0400 Body temperature 98.49 [degF] Wayne Springer MD Work Phone: [employer] Work Phone: 12-27-2020 18:15-0400 Diastolic blood pressure 77 mm[Hg] Wayne Springer MD Work Phone: [employer] Work Phone: Comment on above: Simultaneous filing. User may not have s een previous data. 12-27-2020 18:15-0400 Heart rate 98 /min Wayne Springer MD Work Phone: [employer] Work Phone: 12-27-2020 18:15-0400 Respiratory rate 20 /min Wayne Springer MD Work Phone: [employer] Work Phone: 12-27-2020 18:15-0400 SaO2% (BldA) [Mass fraction] 95 % Wayne Springer MD Work Phone: [employer] Work Phone: Comment on above: Simultaneous filing. User may not have s een previous data. 12-27-2020 18:15-0400 Systolic blood pressure 107 mm[Hg] Wayne Springer MD Work Phone: [employer] Work Phone: Comment on above: Simultaneous filing. User may not have s een previous data. 11-20-2020 21:07-0400 Body height 160 cm Anuj Quinn MD Work Phone: [employer] Work Phone: 11-20-2020 21:07-0400 Body mass index (BMI) [Ratio] 38.62 kg/m2 Anuj Quinn MD Work Phone: [employer] Work Phone: 11-20-2020 21:07-0400 Body temperature 98.6 [degF] Anuj Quinn MD Work Phone: [employer] Work Phone: 11-20-2020 21:07-0400 Body weight 98.88 kg Anuj Quinn MD Work Phone: [employer] Work Phone: 11-20-2020 21:07-0400 Diastolic blood pressure 65 mm[Hg] Anuj Quinn MD Work Phone: [employer] Work Phone: 11-20-2020 21:07-0400 Heart rate 84 /min Anuj Quinn MD Work Phone: [employer] Work Phone: 11-20-2020 21:07-0400 Respiratory rate 16 /min Anuj Quinn MD Work Phone: [employer] Work Phone: 11-20-2020 21:07-0400 SaO2% (BldA) [Mass fraction] 97 % Anuj Quinn MD Work Phone: [employer] Work Phone: 11-20-2020 21:07-0400 Systolic blood pressure 113 mm[Hg] Anuj Quinn MD Work Phone: [employer] Work Phone: 11-07-2020 16:28-0400 Body height 160 cm Nicholas Roger MD Work Phone: [employer] Work Phone: 11-07-2020 16:28-0400 Body mass index (BMI) [Ratio] 38.26 kg/m2 Nicholas Roger MD Work Phone: [employer] Work Phone: 11-07-2020 16:28-0400 Body temperature 98.8 [degF] Nicholas Roger MD Work Phone: [employer] Work Phone: 11-07-2020 16:28-0400 Body weight 97.98 kg Nicholas Roger MD Work Phone: [employer] Work Phone: 11-07-2020 16:28-0400 Diastolic blood pressure 71 mm[Hg] Nicholas Roger MD Work Phone: [employer] Work Phone: 11-07-2020 16:28-0400 Heart rate 98 /min Nicholas Roger MD Work Phone: [employer] Work Phone: 11-07-2020 16:28-0400 Respiratory rate 18 /min Nicholas Roger MD Work Phone: [employer] Work Phone: 11-07-2020 16:28-0400 SaO2% (BldA) [Mass fraction] 94 % Nicholas Roger MD Work Phone: [employer] Work Phone: 11-07-2020 16:28-0400 Systolic blood pressure 120 mm[Hg] Nicholas Roger MD Work Phone: [employer] Work Phone: 07-09-2020 10:52-0400 Body height 160 cm Zelda Bautista CNP Work Phone: [facility] 07-09-2020 10:52-0400 Body mass index (BMI) [Ratio] 41.27 kg/m2 Zelda Bautista CNP Work Phone: [facility] 07-09-2020 10:52-0400 Body weight 105.69 kg Zelda Bautista CNP Work Phone: [facility] 07-09-2020 10:52-0400 Diastolic blood pressure 70 mm[Hg] Zelda Bautista CNP Work Phone: [facility] 07-09-2020 10:52-0400 Heart rate 97 /min Zelda Bautista CNP Work Phone: [facility] 07-09-2020 10:52-0400 Systolic blood pressure 101 mm[Hg] Zelda Bautista CNP Work Phone: [facility] 06-24-2020 09:48-0400 Body mass index (BMI) [Ratio] 40.92 kg/m2 Anuj Quinn MD Work Phone: [employer] Work Phone: 06-24-2020 09:48-0400 Body temperature 97.9 [degF] Anuj Quinn MD Work Phone: [employer] Work Phone: 06-24-2020 09:48-0400 Body weight 104.78 kg Anuj Quinn MD Work Phone: [employer] Work Phone: 06-24-2020 09:48-0400 Diastolic blood pressure 64 mm[Hg] Anuj Quinn MD Work Phone: [employer] Work Phone: 06-24-2020 09:48-0400 Heart rate 120 /min Anju Quinn MD Work Phone: [employer] Work Phone: 06-24-2020 09:48-0400 Respiratory rate 18 /min Anuj Quinn MD Work Phone: [employer] Work Phone: 06-24-2020 09:48-0400 SaO2% (BldA) [Mass fraction] 100 % Anuj Quinn MD Work Phone: [employer] Work Phone: 06-24-2020 09:48-0400 Systolic blood pressure 115 mm[Hg] Anuj Quinn MD Work Phone: [employer] Work Phone: 06-09-2020 10:44-0400 Body height 160 cm Lelo Gallegos MD Work Phone: [facility] 06-09-2020 10:44-0400 Body mass index (BMI) [Ratio] 41.27 kg/m2 Lelo Gallegos MD Work Phone: [facility] 06-09-2020 10:44-0400 Body weight 105.69 kg Lelo Gallegos MD Work Phone: [facility] 06-09-2020 10:44-0400 Diastolic blood pressure 75 mm[Hg] Lelo Gallegos MD Work Phone: [facility] 06-09-2020 10:44-0400 Heart rate 116 /min Lelo Gallegos MD Work [facility]: [facility] [facility] 06-09-2020 10:44-0400 Systolic blood pressure 110 mm[Hg] Lelo Gallegos MD Work Phone: [facility] 03-26-2020 22:17-0500 Pulse (Heart Rate) 98 /min [facility] [place] [place] 03-26-2020 21:43-0500 BP Diastolic 66 mm[Hg] [facility] [place] [facility] [place] 03-26-2020 21:43-0500 BP Systolic 99 mm[Hg] [facility] [place] [facility] [place] 03-26-2020 21:43-0500 Pulse Oximetry 95 % [facility] , [place] 03-26-2020 20:50-0500 Respiratory Rate 16 /min [facility] [place] [facility] [place] 03-26-2020 20:13-0500 BMI (Body Mass Index) 40.14 kg/m2 [facility], [place] 03-26-2020 20:13-0500 Body Temperature 98.2 [degF] [facility] [place] [facility] [place] 03-26-2020 20:13-0500 Body weight 102.78 kg [facility] , [place] 02-15-2020 18:22-0500 BMI (Body Mass Index) 39.75 kg/m2 [facility] [place] 02-15-2020 18:22-0500 Body Temperature 98.6 [degF] [facility] [place] [facility] 02-15-2020 18:22-0500 Body weight 101.79 kg [facility]org[facility] , [place] 02-15-2020 18:22-0500 BP Diastolic 78 mm[Hg] [facility] [place] [facility] [place] 02-15-2020 18:22-0500 BP Systolic 127 mm[Hg] [facility] [place] [facility] [place] 02-15-2020 18:22-0500 Height 160 cm [facility] , [place] 02-15-2020 18:22-0500 Pulse (Heart Rate) 92 /min [facility], [place] 02-15-2020 18:22-0500 Pulse Oximetry 99 % Brie Josh [facility] , [place] 02-15-2020 18:22-0500 Respiratory Rate 20 /min [facility] 11-20-2019 18:48-0400 BP Diastolic 75 mm[Hg] [facility], [place] 11-20-2019 18:48-0400 BP Systolic 128 mm[Hg] [facility], [place] 11-20-2019 18:48-0400 Pulse (Heart Rate) 83 /min [facility], [place] 11-20-2019 18:48-0400 Pulse Oximetry 97 % [facility], [place] 11-20-2019 18:48-0400 Respiratory Rate 18 /min [facility], [place] 11-20-2019 17:00-0400 BMI (Body Mass Index) 36.31 kg/m2 [facility], [place] 11-20-2019 17:00-0400 Body Temperature 98.4 [degF] [facility], [place] 11-20-2019 17:00-0400 Body weight 92.99 kg [facility], [place] 11-03-2019 11:37-0400 BMI (Body Mass Index) 34.47 kg/m2 [facility], [place] 11-03-2019 11:37-0400 Body Temperature 98.71 [degF] [facility] 11-03-2019 11:37-0400 Body weight 88.27 kg [facility], [place] 11-03-2019 11:37-0400 BP Diastolic 66 mm[Hg] [facility], [place] 11-03-2019 11:37-0400 BP Systolic 117 mm[Hg] [facility], [place] 11-03-2019 11:37-0400 Height 160 cm [facility], [place] 11-03-2019 11:37-0400 Pulse (Heart Rate) 87 /min [facility], [place] 11-03-2019 11:37-0400 Pulse Oximetry 99 % [facility] [place] 11-03-2019 11:37-0400 Respiratory Rate 20 /min [facility] [place] 08-13-2019 19:42-0400 BMI (Body Mass Index) 31 kg/m2 [facility] 08-13-2019 19:42-0400 Body Temperature 98.6 [degF] [facility] 08-13-2019 19:42-0400 Body weight 79.38 kg [facility] 08-13-2019 19:42-0400 Height 160 cm [facility] 08-13-2019 19:40-0400 BP Diastolic 60 mm[Hg] [facility] 08-13-2019 19:40-0400 BP Systolic 156 mm[Hg] [facility] 08-13-2019 19:40-0400 Pulse (Heart Rate) 138 /min [facility] 08-13-2019 19:40-0400 Pulse Oximetry 98 % [facility] 08-13-2019 19:40-0400 Respiratory Rate 16 /min [facility] 06-17-2019 12:45-0400 Respiratory Rate 18 /min [facility] 06-17-2019 07:54-0400 Body Temperature 97.81 [degF] [facility] 06-17-2019 07:54-0400 BP Diastolic 66 mm[Hg] [facility] 06-17-2019 07:54-0400 BP Systolic 99 mm[Hg] [facility] 06-17-2019 07:54-0400 Pulse (Heart Rate) 82 /min [facility] 06-17-2019 07:54-0400 Pulse Oximetry 94 % [facility] 06-14-2019 08:15-0400 BMI (Body Mass Index) 32.92 kg/m2 [facility] 06-14-2019 08:15-0400 Body weight 81.65 kg [facility] 06-14-2019 08:15-0400 Height 157.5 cm [facility] 06-14-2019 04:20-0400 Pulse (Heart Rate) 83 /min [facility] [place], [place] 06-14-2019 04:05-0400 BP Diastolic 58 mm[Hg] [facility] [place] [facility] [place] 06-14-2019 04:05-0400 BP Systolic 95 mm[Hg] [facility] [place] 06-14-2019 04:05-0400 Pulse Oximetry 95 % [facility] [place] 06-14-2019 01:12-0400 Respiratory Rate 18 /min [facility] 06-14-2019 00:10-0400 Body Temperature 100.51 [degF] [facility] [place] 06-13-2019 22:00-0400 BMI (Body Mass Index) 32.31 kg/m2 [facility] [place] 06-13-2019 22:00-0400 Body weight 82.74 kg [facility] [place] 06-13-2019 22:00-0400 Height 160 cm [facility] [place] 04-28-2019 19:58-0500 Body Temperature 98.8 [degF] [facility] [place] 04-28-2019 19:58-0500 BP Diastolic 70 mm[Hg] [facility] [place] [facility] [place] 04-28-2019 19:58-0500 BP Systolic 98 mm[Hg] [facility] [place] [facility] [place] 04-28-2019 19:58-0500 Pulse (Heart Rate) 119 /min [facility] [place] 04-28-2019 19:58-0500 Pulse Oximetry 100 % Roslyn Jorgensen [facility] [place] , [place] 04-28-2019 19:58-0500 Respiratory Rate 30 /min [facility] 04-28-2019 19:54-0500 BMI (Body Mass Index) 30.65 kg/m2 [facility] [place] 04-28-2019 19:54-0500 Body weight 78.47 kg Roslyn Jorgensen [facility] [place] , [place] 04-28-2019 19:54-0500 Height 160 cm Roslyn Jorgensen [facility] , [place] Encounters Encounter Date Encounter Type Care Provider Facility Start: 10-26-2023 End: 10-26-2023 ambulatory MARK ELIANA Not Available Start: 10-05-2023 End: 10-05-2023 ambulatory VIOLET JUAREZ [facility] Start: 10-05-2023 End: 10-05-2023 Subsequent hospital visit by physician Violet Juarez MD Work Phone: [id number] Start: 10-05-2023 End: 10-05-2023 Emergency department patient visit VIOLET Richard FRANKLINOY [facility] Start: 10-05-2023 End: 10-05-2023 Emergency department patient visit LINDA Lilly [facility] Start: 09-12-2023 End: 09-12-2023 ambulatory MARK ELIANA Not Available Start: 08-16-2023 End: 08-16-2023 ambulatory MARK ELIANA Not Available Start: 07-26-2023 End: 07-26-2023 ambulatory BLAKE Hatch JAMARI [facility] Start: 07-19-2023 End: 07-19-2023 ambulatory MARK ELIANA Not Available Start: 06-21-2023 End: 06-21-2023 ambulatory MARK ELIANA Not Available Start: 05-20-2023 End: 05-20-2023 ambulatory MARK ELIANA Not Available Start: 05-13-2023 End: 05-13-2023 Emergency department patient visit Jonathan Martinez Facility:[facility] Start: 05-13-2023 End: 05-13-2023 Emergency department patient visit Jonathan Martinez [facility] Start: 05-11-2023 End: 05-12-2023 Emergency department patient visit Zac Britton Donnie Facility:[facility] Start: 05-11-2023 End: 05-11-2023 Emergency department patient visit Reginaparker Britton Donnie [facility] Start: 05-10-2023 End: 05-10-2023 Emergency department patient visit LINDA Vijaya [facility] Start: 05-10-2023 End: 05-10-2023 Emergency department patient visit Chet Berumen DO Work Phone: [facility] Comment on above: Toothache (Primary D x); Dental decay Start: 12-27-2022 End: 12-27-2022 ambulatory [facility] DUMONT [facility] Start: 11-23-2022 End: 11-23-2022 ambulatory MARK DUMONT [facility] Start: 09-04-2022 End: 09-04-2022 Emergency department patient visit Erin Lacy MD Work Phone: [facility] Comment on above: Sprain of right ankl e, unspecified ligament, initial encounter (Primary Dx) Start: 06-29-2022 End: 06-30-[address] MARK DUMONT . Facility: Start: 06-29-2022 End: 06-30-2022 ambulatory Linda Sheppard Facility:[facility] Start: 06-29-2022 End: 06-29-2022 Pain Management Todd Smart [facility] Start: 06-14-2022 End: 06-14-[address] MARK DUMONT . Facility: Start: 05-19-2022 End: 05-19-2022 Emergency department patient visit Erin Lacy MD Work Phone: [facility] Comment on above: Dry socket (Primary Dx) Start: 05-11-2022 End: 05-11-2022 Emergency department patient visit Anuj Quinn MD Work Phone: [facility] Comment on above: Masseter muscle spas m (Primary Dx); Other acute postprocedural pain Start: 03-30-[address] MARK DUMONT . Facili ty:[facility] Start: 03-29-2022 End: 03-29-2022 Subsequent hospital visit by physician [facility] Start: 10-12-2021 End: 10-12-2021 Emergency department patient visit Rishabh Mancini MD Work Phone: [facility] Comment on above: Acute bronchitis, un specified organism (Primary Dx) Start: 07-22-2021 End: 07-22-2021 Emergency department patient visit Clark Moser MD Work Phone: [facility] Comment on above: Acute pharyngitis, u nspecified etiology (Primary Dx) Start: 07-07-2021 ambulatory BRIE ROCA [facility] Ambulatory Start: 06-18-2021 ambulatory FARHAT PASTOR [facility] Ambulatory Start: 06-17-2021 End: 06-18-2021 [facility] Start: 05-15-2021 End: 05-19-2021 ambulatory [facility] Start: 05-15-2021 End: 05-15-2021 Nutrition therapy Farhat Vang MD Work Phone: [facility] Comment on above: Morbid obesity with body mass index (BMI) of 40.0 or higher ([facility]) Start: 05-14-2021 End: 05-18-2021 [facility] Start: 05-14-2021 End: 05-14-2021 Office outpatient visit 15 minutes Farhat Vang MD Work Phone: [facility] Comment on above: Anxiety and depressi on (Primary Dx); At risk for obstructive sleep apnea; Chronic bilateral low back pain without sciatica; Hepatitis C antibody positive in blood; Body mass index 40.0-44.9, adult (HCC); History of opioid abuse (HCC) Start: 04-16-2021 End: 04-20-2021 [facility] Start: 04-16-2021 End: 04-16-2021 Initial preventive medicine new pt age 18-39yrs Farhat Vang MD Work Phone: [facility] Comment on above: Encounter for [facility] adult medical examination with abnormal findings (Primary Dx); Anxiety and depression; History of opioid abuse (HCC); Morbid obesity with body mass index (BMI) of 40.0 or higher (HCC) Start: 04-16-2021 End: 04-16-2021 Patient encounter status Farhat Vang MD Work Phone: [facility] Start: 03-23-2021 End: 03-23-2021 Emergency department patient visit Anuj Quinn MD Work Phone: [facility] Comment on above: COVID-19 (Primary Dx ); Omphalitis in adult Start: 02-16-2021 End: 02-20-[address] [facility] Start: 02-12-2021 End: 02-16-2021 ambulatory PHYSICIAN [facility] Start: 02-10-2021 End: 02-14-[address] [facility] Start: 02-02-2021 End: 02-06-2021 ambulatory PHYSICIAN [facility] Start: 01-15-2021 Documentation procedure Jeimy goodman [facility] Start: 01-15-2021 End: 01-15-2021 ambulatory HOLLAND WHIPPLE SETH [facility] Ambulatory Start: 01-15-2021 End: 01-15-2021 Office outpatient new 30 minutes Holland Ann MD Work Phone: [facility] G[facility]ology Comment on above: Hemorrhoids, unspeci fied hemorrhoid type Start: 12-29-2020 End: 01-02-2021 ambulatory PHYSICIAN [facility] Start: 12-27-2020 End: 12-27-2020 Emergency department patient visit Wayne Springer MD Work Phone: [facility] Comment on above: Viral syndrome (Prim prakash Dx) Start: 11-20-2020 End: 11-20-2020 Emergency department patient visit Anuj Quinn MD Work Phone: [facility] Comment on above: Strain of rhomboid m uscle, initial encounter; Chest wall muscle strain, initial encounter Start: 11-07-2020 End: 11-07-2020 Emergency department patient visit Nicholas Roger MD Work Phone: [facility] Comment on above: Viral URI (Primary D x) Start: 08-28-2020 End: 08-30-2020 Evaluation and management of inpatient ROSLYN HERNANDEZ [facility] Start: 08-25-2020 End: 08-25-2020 ambulatory PHYSICIAN [facility] Start: 07-29-2020 End: 08-02-2020 ambulatory PHYSICIAN [facility] Start: 07-22-2020 End: 07-26-2020 ambulatory LELO ADAMS GALLEGOS [facility] Start: 07-22-2020 End: 07-22-2020 Telemedicine consultation with patient Lelo Gallegos MD Work Phone: [facility] Comment on above: Diet controlled gest ational diabetes mellitus (GDM) in third trimester Start: 07-10-2020 ambulatory LELO GALLEGOS [facility] Ambulatory Start: 07-09-2020 End: 07-09-2020 ambulatory ZELDA BAUTISTA [facility] Start: 07-09-2020 End: 07-09-2020 Office outpatient visit 15 minutes Zelda Bautista CNP Work Phone: [facility] Physicians Comment on above: Diet controlled gest ational diabetes mellitus (GDM) in third trimester (Primary Dx) Start: 06-24-2020 End: 06-24-2020 Emergency department patient visit Anuj Quinn MD Work Phone: [facility] Comment on above: Acute frontal sinusi tis, recurrence not specified (Primary Dx) Start: 06-10-2020 End: 06-10-2020 Nutrition therapy Lelo Gallegos Work Phone: [facility] Comment on above: Diet controlled gest ational diabetes mellitus (GDM) in second trimester Start: 06-09-2020 End: 06-09-2020 Office outpatient new 30 minutes Roslyn Stevenson MD Work Phone: [facility] Comment on above: Diet controlled gest ational diabetes mellitus (GDM) in second trimester Start: 05-27-2020 End: 05-31-2020 ambulatory PHYSICIAN [facility] Start: 05-21-2020 End: 05-25-2020 ambulatory PHYSICIAN [facility] Start: 03-26-2020 End: 03-26-2020 Emergency department patient visit Brie Moreno Work Phone: [facility] Comment on above: Atypical pneumonia ( Primary Dx) Start: 02-15-2020 End: 02-15-2020 Emergency department patient visit Brie Moreno Work Phone: [facility] Comment on above: Pain, dental (Primar y Dx); Acute gingivitis; Alveolar osteitis Start: 11-20-2019 End: 11-20-2019 Emergency department patient visit Crescenciomagui Puri Kai Work Phone: [facility] Comment on above: Bacterial vaginosis (Primary Dx); Trichimoniasis; Furuncle of left axilla Start: 11-03-2019 End: 11-03-2019 Emergency department patient visit Wayne Wahl Gian Work Phone: [facility] Comment on above: Poison arabella (Primary Dx) Start: 08-20-2019 End: 08-21-2019 Patient encounter procedure [facility] Start: 08-20-2019 End: 08-20-2019 Subsequent hospital visit by physician [facility] Start: 08-13-2019 End: 08-13-2019 Emergency department patient visit Christian Redmond Juan Work Phone: [facility] Emergency Department Comment on above: Heroin abuse (HCC) ( Primary Dx) Start: 06-20-2019 End: 06-20-2019 Patient encounter procedure Alisa Palencia Work Phone: [facility] Comment on above: Hepatitis C virus in fection without hepatic coma, unspecified chronicity (Primary Dx) Start: 06-18-2019 End: 06-18-2019 Documentation procedure Taryn Torres [facility] Start: 06-18-2019 [facility] Comment on above: Transition Of Care Start: 06-18-2019 End: 06-18-2019 Patient encounter procedure Taryn Torres [facility] Start: 06-14-2019 End: 06-17-2019 Evaluation and management of inpatient [facility] Work Phone: [facility] Comment on above: Elevated LFTs; IVDA (intravenous drug abuse) complicating (HCC) Start: 06-13-2019 End: 06-14-2019 Emergency department patient visit Brie Moreno Work Phone: [facility] Comment on above: Abdominal pain, unsp ecified abdominal location (Primary Dx); Urinary tract infection with hematuria, site unspecified; Viral hepatitis without hepatic coma, unspecified chronicity, unspecified viral hepatitis type; Polysubstance abuse (HCC); Hyperbilirubinemia Start: 04-28-2019 End: 04-28-2019 Emergency department patient visit Roslyn Keating Work Phone: [facility] Comment on above: Accidental overdose of heroin, initial encounter (HCC) (Primary Dx) Start: 12-20-2016 End: 01-02-2020 Cancer cervix - screening done Lelo Gallegos MD Work Phone: [facility] Start: 12-20-2016 End: 01-02-2020 Encounter for gynecological examination (general) (routine) without abnormal findings Jeimy Tan LPN [facility] Procedures Date Procedure Procedure Detail Performing [...] 07-09-2020 Hemoglobin glycosylated a1c Zelda Haywardottoniel Bautista [facility] Work Phone: Start: 06-09-2020 Hemoglobin glycosylated [...] Start: 05-18-2019 Adult depression scr eening assessment [facility] Start: 08-05-2016 Microscopic observat ion [Identifier] in Cervix by Cyto stain [facility] Start: 04-05-2011 Microscopic observat ion [Identifier] in Cervix by Cyto stain Erin Lacy MD Work Phone: Human , f unction (observable entity) [facility] Comment on above: x4 Plan of Treatment Date Care Activity Detail Author Start: 2040 Shingles Vaccine (1 of 2) Shingles Vaccine (1 of 2) [facility] [place], [place] Start: 12-29-2025 Screening for malignant neoplasm of cervix Pap Smear [facility] Start: 10-31-2024 Screening for malignant neoplasm of cervix Pap Smear [facility] Start: 12-30-2023 Screening for malignant neoplasm of cervix [facility] Start: 11-11-2023 Respiratory Syncytial Virus (RSV) or age 60 yrs+ (1 - Risk 1-dose series) Respiratory Syncytial Virus (RSV) or age 60 yrs+ (1 - Risk 1-dose series) ALEXANDRA PANIAGUA [facility] Start: 11-10-2023 End: 11-10-2023 Patient encounter procedure 11/10/2023 10:00 AM EDT Routine [facility] [address] [address] [facility] Start: 10-27-2023 End: 10-27-2023 Patient encounter procedure 10/27/2023 10:00 AM EDT [facility] [address] [place] [address] [facility] Start: 10-13-2023 End: 10-13-2023 Patient encounter procedure 10/13/2023 10:00 AM EDT [facility] [address] [place] [address] Return in about 2 weeks (around 10/04/2023) for twins, dopplers, growth, transvag. [facility] Comment on above: Return in about 2 weeks (around ) for twins, dopplers, growth, transvag. Start: 10-07-2023 Tdap Vaccine during Tdap Vaccine during [facility] Start: 10-06-2023 Influenza vaccination Flu vaccine (#1) [facility] Start: 10-31-2022 Screening for malignant neoplasm of cervix [facility] Work Phone: Start: 10-05-2022 Influenza vaccination Flu vaccine (#1) [employer] Start: 04-16-2022 History and physical examination, annual for health maintenance Wellness Visit [facility] Start: 02-13-2022 Depression Remission Assessment (PHQ9) Depression Remission Assessment (PHQ9) [facility] Start: 12-29-2021 History and physical examination, annual for health maintenance Wellness Visit [facility] Start: 11-12-2021 End: 11-12-2021 Patient encounter procedure 11/12/2021 Office Visit Primary Care Farhat Vang MD [address] [address] [facility] Start: 11-05-2021 Influenza vaccination [facility] Start: 10-05-2021 Influenza vaccination Flu vaccine (#1) [facility] Start: 06-26-2021 End: 06-26-2021 Nutrition therapy 06/26/2021 Nutrition Nutrition Farhat Vang MD [address] [facility] [address] [place] [address] [facility] Start: 05-15-2021 End: 05-15-2021 Nutrition therapy 05/15/2021 Nutrition Nutrition Angelito Harvey RD [facility] Start: 05-14-2021 End: 05-14-2021 Patient encounter procedure 05/14/2021 Office Visit Primary Care Farhat Vang MD [address] [facility] [address] [place] [address] [facility] Start: 03-17-2021 Depression screening using PHQ-9 (Patient Health Questionnaire 9) score Depression Screening (PHQ9) [facility] Start: 01-15-2021 Depression Remission Assessment (PHQ9) Depression Remission Assessment (PHQ9) [facility] Start: 01-09-2021 Hemoglobin A1c measurement A1C [facility] Start: 12-09-2020 HbA1c (Bld) [Mass fraction] A1C [facility] Start: 12-09-2020 Hemoglobin A1c measurement A1C [facility] Start: 11-05-2020 Influenza vaccination [facility] Start: 10-31-2020 History and physical examination, annual for health maintenance Wellness Visit [facility] Start: 08-28-2020 End: 08-28-2020 Admission to same day surgery center 08/28/2020 Surgery Obstetrics Roslyn Stevenson MD [address] [place] [address] [phone] SECTION [facility] Labor [facility] Delivery Comment on above: SECTION Start: 08-28-2020 Subsequent hospital visit by physician 08/28/2020 Hospital Encounter Obstetrics Roslyn Stevenson MD [address] [place] [address] [phone] [facility] Delivery Start: 08-25-2020 End: 08-25-2020 Office Visit 08/25/2020 Office Visit Endocrinology Zelda Bautista, [employer] [address] [place] [address] [phone] [facility] Start: 07-31-2020 End: 07-31-2020 Office Visit 07/31/2020 Office Visit Endocrinology Benito Krueger, MARK [address] [place] [address] [phone] [facility] Start: 07-29-2020 End: 07-29-2020 Patient encounter procedure 07/29/2020 Routine Obstetrics and Gynecology Regla Dias CNM [address] [place] [phone] [facility] Start: 07-22-2020 End: 07-22-2020 Telemedicine consultation with patient 07/22/2020 Telemedicine Nutrition Lelo Gallegos MD [address] [place] [address] [phone] Neris Ulloa [facility] Nutrition[facility] Services Start: 07-17-2020 End: 07-17-2020 Patient encounter procedure 07/17/2020 Routine Obstetrics and Gynecology Yvonne Santos MD [address] [place] [phone] [facility] Start: 07-09-2020 End: 07-09-2020 Office Visit 07/09/2020 Office Visit Endocrinology Zelda Bautista, MOLDER MACHINE [address] [place] [address] [phone] [facility] Endocrinology Physicians Start: 07-04-2020 End: 07-04-2020 Patient encounter procedure 07/04/2020 Routine Obstetrics and Gynecology Radha Pantoja MD [address] [place] [id number] [facility] - An Affiliate of [facility] Start: 06-26-2020 End: 06-26-2020 Patient encounter procedure 06/26/2020 Office Visit Endocrinology Janie Chen PA-C [address] [place] [address] [phone] [facility] Endocrinology Physicians Start: 06-24-2020 End: 06-24-2020 Nutrition [facility] Nutritional Services Start: 06-19-2020 End: 06-19-2020 Routine 06/19/2020 Routine Obstetrics and Gynecology Larissa, Regla Arriaga CNM [address] [place] [address] [facility] - An Affiliate of [facility] Start: 05-17-2020 Depression screening using PHQ-9 (Patient Health Questionnaire 9) score Depression Screening (PHQ9) [facility] Start: 2020 Screening for malignant neoplasm of cervix [facility] Start: 02-26-2020 End: 02-26-2020 Initial 02/26/2020 Initial Obstetrics and Gynecology Jai Huerta MD [address] [facility] [address] [place] [address] [facility] Start: 11-06-2019 Influenza vaccination [place], [place] Start: 11-06-2019 Influenza vaccination given [facility] Start: 08-06-2019 Screening for malignant neoplasm of cervix Pap Smear [facility] Start: 06-20-2019 End: 06-20-2019 Office Visit 06/20/2019 Office Visit Transition of Care Alisa Palencia, MOLDER MACHINE [address] [facility] [address] [place] [address] [phone] [facility] Start: 11-05-2018 Influenza vaccination Flu vaccine (#1) [place] Start: 11-05-2018 Influenza vaccination given Sequential Influenza Vaccine (#1) [facility] Start: 03-21-2015 Cervical cancer screen Cervical cancer screen [place], [place] Start: 03-21-2015 Screening for malignant neoplasm of cervix Cervical cancer screen [place] Start: 04-05-2014 Screening for malignant neoplasm of cervix Pap smear [facility] Start: 2009 DTaP/Tdap/Td vaccine (1 - Tdap) DTaP/Tdap/Td vaccine (1 - Tdap) [place] Start: 2009 Hepatitis B vaccine (1 of 3 - Risk 3-dose series) Hepatitis B vaccine (1 of 3 - Risk 3-dose series) [facility] Work Phone: Start: 2008 Hepatitis C screening Hepatitis C screen [facility] Start: 2006 COVID-19 Vaccine (1) COVID-19 Vaccine (1) [facility] Start: 2005 HIV screen HIV screen [place], [place] Start: 2005 HIV screening HIV screen [facility] Start: 2002 COVID-19 Vaccine (1) COVID-19 Vaccine (1) [facility] Start: 2002 Depression Monitoring Depression Monitoring [facility] Start: 2001 DTaP/Tdap/Td vaccine (1 - Tdap) DTaP/Tdap/Td vaccine (1 - Tdap) [place] Start: 2001 DTaP/Tdap/Td vaccine (5 - Tdap) DTaP/Tdap/Td vaccine (5 - Tdap) [facility] Start: 2000 Albumin DL <= 20 mg/L (U) [Mass/Vol] Urine Microalbumin [facility] Start: 2000 Diabetic foot examination Foot Exam [facility] Start: 2000 Microalbumin measurement, urine, quantitative Urine Microalbumin [facility] Start: 2000 Ophthalmic examination and evaluation Ophthalmology Exam [facility] Start: 1996 Pneumococcal 0-64 years Vaccine (1 of 1 - PPSV23) Pneumococcal 0-64 years Vaccine (1 of 1 - PPSV23) [place] Start: 1996 Pneumococcal Vaccine: Ped or At-Risk (1 of 2 - PPSV23) Pneumococcal Vaccine: Ped or At-Risk (1 of 2 - PPSV23) [facility] Start: 1995 COVID-19 Vaccine (1) COVID-19 Vaccine (1) [facility] Start: 1993 History and physical examination, annual for health maintenance Wellness Visit [facility] Start: 1991 Varicella vaccine (1 of 2 - 2-dose childhood series) Varicella vaccine (1 of 2 - 2-dose childhood series) [facility] Start: 1990 COVID-19 Vaccine (#1) COVID-19 Vaccine (#1) [facility] Start: 1990 Hepatitis B vaccine (1 of 3 - 3-dose series) Hepatitis B vaccine (1 of 3 - 3-dose series) [facility] Start: 1990 Hepatitis C screening Hepatitis C screen [facility] Start: 1990 Tetanus vaccination Tetanus: Every 10yrs [facility] Anti smooth muscle antibody IgA level Anti-Smooth Muscle Antibody Lab Add-On 06/15/2019 1:50 PM EDT [facility] Antimitochondrial antibody titer Antimitochondrial Antibody Lab Add-On 06/15/2019 1:50 PM EDT [facility] End: 11-20-2019 C.trachomatis N.gonorrhoeae DNA, Urine C.trachomatis N.gonorrhoeae DNA, Urine Microbiology STAT One Time for 1 Occurrences starting 11/20/2019 until 11/20/2019 [place] Comment on above: One Time for 1 Occurrences starting 11/05 until 11/20/2019 C.trachomatis N.gonorrhoeae DNA, Urine C.trachomatis N.gonorrhoeae DNA, Urine Microbiology Stat [employer] Label print 11/20/2019 5:55 PM EDT [place] End: 03-26-2020 Covid-19 Ambulatory Covid-19 Ambulatory Lab Routine Once for 1 Occurrences starting 03/26/2020 until 03/26/2020 [place] Comment on above: Once for 1 Occurrences starting 03/26/19 21 until 03/26/2020 Covid-19 Ambulatory Covid-19 Amb ulatory Lab Routine 03/26/2020 8:44 PM EST [place] End: 06-13-2019 Culture, Blood 1 Culture, Blood 1 Microbiology STAT One Time for 1 Occurrences starting 06/13/2019 until 06/13/2019 [place] Comment on above: One Time for 1 Occurrences starting 10/2019 until 06/13/2019 Culture, Blood 1 [facility] End: 03-23-2021 Culture, Wound [facility] Work Phone: Comment on above: One Time for 1 Occurrences starting 03/07 until 03/23/2021 Cytomegalovirus DNA assay CMV DN A Detection and Quant, Blood Lab Routine 06/15/2019 1:50 PM EDT [facility] Kirsten-Hazel Virus P CR, Quantitative Kirsten-Hazel Virus PCR, Quantitative Lab Routine 06/15/2019 1:50 PM EDT [facility] End: 04-16-2022 Hemoglobin A1c/Hemoglobin.total in Blood Hemoglobin A1c Lab Routine Encounter for general adult medical examination with abnormal findings 1 Occurrences starting 04/16/2021 until 04/16/2022 [facility] Work Phone: Comment on above: 1 Occurrences starting 04/16/2021 until 04/16/2022 Hemoglobin A1c/Hemoglobin.total in Blood Hemoglobin A1c Lab Routine Encounter for general adult medical examination with abnormal findings 04/16/2021 10:58 AM [facility] End: 04-16-2022 Hepatitis C antibody measurement Hepatitis C Antibody Lab Routine Encounter for general adult medical examination with abnormal findings 1 Occurrences starting 04/16/2021 until 04/16/2022 [facility] Comment on above: 1 Occurrences starting 04/16/2021 until 04/16/2022 Hepatitis C antibody measurement Hepatitis C Antibody Lab Routine Encounter for general adult medical examination with abnormal findings 04/16/2021 10:58 AM [facility] MDI Treatment MDI Treatment Re spiratory Care Routine Every 6hr As Needed until discontinued starting 03/26/2020 [facility] [place] Comment on above: Every 6hr As Needed until discontinued s tarting 03/26/2020 Nonrebreather mask oxygen Nonreb reather mask oxygen Respiratory Care Routine As Needed until discontinued starting 10/05/2023 [facility] Comment on above: As Needed until discontinued starting Nuclear Ab IF (S) [Titer] KENIA La b Add-On 06/15/2019 1:50 PM EDT [facility] End: 06-24-2020 Urinalysis, reflex to microscopic Urinalysis, reflex to microscopic Lab STAT One Time for 1 Occurrences starting 06/24/2020 until 06/24/2020 [employer] Work Phone: Comment on above: One Time for 1 Occurrences starting 06/06 until 06/24/2020 End: 05-14-2022 XR Lumbar Spine Complete AP/Lat w Obls XR Lumbar Spine Complete AP/Lat w Obls Imaging Routine Chronic bilateral low back pain without sciatica 1 Occurrences starting 05/14/2021 until 05/14/2022 [facility] Work Phone: Comment on above: 1 Occurrences starting 05/14/2021 until 05/14/2022 Payers Date Payer Category Payer Medicaid [facility] [facility]ICA[facility] [id number] 2021-Present [phone] [address] [place] [address] [id number]. [id number] 2021 Unknown [id number] 1.2.840.007648.1.13.239.2. 7.3.942071.315 2017 Medicaid [id number] 1.2.840.123383.1.13.385.2. 7.3.227494.315 2012 Medicaid [id number] 1.2.840.878317.1.13.239.2. 7.3.029309.315 2012 Medicaid [id number] 2008 Private Health Insurance [id number] 1990 Unknown [id number] 2.16.840.1.399652.3.579.2. 173 1990 Unknown [id number] 2.16.840.1.228884.3.579.2. 900 1990 Unknown [id number] 2.16.840.1.958448.3.579.2. 900 1990 Unknown [id number] 2.16.840.1.052506.3.579.2. 900 1990 Unknown [id number] 2.16.840.1.418146.3.579.2. 900 1990 Unknown [id number] 2.16.840.1.145344.3.579.2. 900 1990 Unknown [id number] 2.16.840.1.424311.3.579.2. 900 1990 Unknown [id number] 2.16.840.1.731451.3.579.2. 900 1990 Unknown [id number] 2.16.840.1.104339.3.579.2. 903 1990 Unknown [id number] 2.16.840.1.734435.3.579.2. 903 1990 Unknown [id number] 2.16.840.1.417010.3.579.2. 903 1990 Unknown [id number] 2.16.840.1.704871.3.579.2. 903 1990 Unknown [id number] 2.16.840.1.237161.3.579.2. 903 1990 Unknown [id number] 2.16.840.1.888556.3.579.2. 903 1990 Unknown [id number] 2.16.840.1.239946.3.579.2. 903 1990 Unknown [id number] 2.16.840.1.300920.3.579.2. 903 1990 Unknown [id number] 2.16.840.1.680282.3.579.2. 903 1990 Unknown [id number] 2.16.840.1.065170.3.579.2. 903 1990 Unknown [id number] 2.16.840.1.466155.3.579.2. 903 1990 Unknown [id number] 2.16.840.1.840172.3.579.2. 903 1990 Unknown [id number] 2.16.840.1.570881.3.579.2. 903 1990 Unknown [id number] 2.16.840.1.446551.3.579.2. 903 1990 Unknown [id number] 2.16.840.1.786397.3.579.2. 903 1990 Unknown [id number] 2.16.840.1.035394.3.579.2. 593 1990 Unknown [id number] 2.16.840.1.166500.3.579.2. 593 1990 Unknown [id number] 2.16.840.1.750420.3.579.2. 593 1990 Unknown [id number] 2.16.840.1.593252.3.579.2. 593 1990 Unknown [id number] 2.16.840.1.666600.3.579.2. 727 1990 Unknown [id number] 2.16.840.1.107041.3.579.2. 727 1990 Unknown [id number] 2.16.840.1.188174.3.579.2. 727 1990 Unknown [id number] 2.16.840.1.760398.3.579.2. 174 1990 Unknown [id number] 2.16.840.1.491626.3.579.2. 174 1990 Unknown [id number] 2.16.840.1.151404.3.579.2. 174 1990 Unknown [id number] 2.16.840.1.534543.3.579.2. 174 1990 Unknown [id number] 2.16.840.1.932204.3.579.2. 174 1990 Unknown [id number] 2.16.840.1.270833.3.579.2. 1259 1990 Unknown [id number] 2.16.840.1.091862.3.579.2. 1259 1990 Unknown [id number] 2.16.840.1.338108.3.579.2. 1259 1990 Unknown [id number] 2.16.840.1.830632.3.579.2. 1259 1990 Unknown [id number] 2.16.840.1.414465.3.579.2. 1259 1990 Unknown [id number] 2.16.840.1.616885.3.579.2. 1259 1990 Unknown [id number] 2.16.840.1.331171.3.579.2. 175 1990 Unknown [id number] 2.16.840.1.101304.3.579.2. 175 1990 Unknown [id number] 2.16.840.1.245604.3.579.2. 175 1959 Unknown [id number] Social History Date Type Detail Facility Start: 04-28-2019 End: 11-03-2019 Tobacco smoking status NHIS Current every day smoker [place] End: 02-15-2020 History of tobacco use Cigarette Smoker [place] Start: 04-28-2019 End: 10-05-2023 Cigarettes smoked current (pack per day) - Reported [facility] PANIAGUA [facility] Start: 04-28-2019 Alcohol intake Current drinke r of alcohol (finding) [place], [place] Start: 1990 Sex Assigned At Not on file [place], [place] Start: 06-13-2019 End: 10-05-2023 Alcohol intake Ex-drinker (finding) [facility] Y Exposure to SARS-CoV -2 (event) Unable to assess [place] Start: 05-18-2019 End: 04-16-2021 History SDOH Alcohol Frequency 3 [facility] Start: 05-18-2019 End: 07-16-2020 History SDOH Alcohol Std Drinks 5 [facility] Start: 05-04-2021 End: 05-19-2022 Exposure to SARS-CoV-2 (event) Not sure [facility] Start: 11-20-2019 End: 07-26-2023 Tobacco use and exposure Never used [facility] [place] [place] Start: 06-09-2020 End: 07-26-2023 Tobacco smoking status NHIS Former smoker [facility] End: 02-15-2020 History of tobacco use Current smoker [facility] Start: 12-09-2019 [facility] Start: 04-16-2021 History SDOH Social Connections Get Together 4 [facility] Start: 04-16-2021 History SDOH Food Worry 1 [facility] Start: 09-04-2022 End: 10-05-2023 Sex Assigned At Female [facility] Start: 09-04-2022 History SDOH Alcohol Frequency 2 [facility] How often to you hav e a drink containing alcohol? Monthly or less [facility] Average Number of Drinks Not on file [facility] How often to you hav e a drink containing alcohol? Never [facility] Medical Equipment Procedure Code Equipment Code Equipment Origin al Text Equipment Identifier Dates Use to check BG QID Dx O24.14 . [id number] Start: 06-09-2020 Use as instructe d to check BG QID Dx O24.14 . [id number] Start: 06-09-2020 End: 06-11-2020 use to test BLOO D SUGAR FOUR TIMES DAILY [id number] Start: 06-09-2020 Goals Date Patient Goal Desired Activity /State Functional Status Date Assessment Result Facility 05-13-2023 Functional Status N/A [facility] 05-11-2023 Functional Status N/A [facility] 06-29-2022 Functional Status N/A [facility] Clinical Notes 06-09-2020 to 05-13-2023 [...] Follow these instructions at home: Medicines Take bscq-mrx-anfuiuy and prescription medicines only as told by [...] provider. Document Revised: 04/30/2021 Document Reviewed: 04/30/2021 [employer] Patient Education 2022 Shuame. Follow Up Care 05/13/2023 11:20:07 With:[employer] Address: [place] [address] Business (1) When:05/16/2023 12:45:32 Comments:Dentistry follow-up [facility] 05-12-2023 Hospital Discharg e instructions Patient Education 05/11/2023 23:33:09 Dental Pain, Bmjl-sh-Zkhm Dental Pain Dental pain is often a [...] Follow these instructions at home: Medicines Take zaqv-tab-kduylgh and prescription medicines only as told by [...] damage to the area. Brushing your teeth [place] your teeth twice a day using a [...] only when you eat or drink. Take hmlg-yvp-ujoklxw and prescription medicines only as told by your dentist. Watch your dental pain for any changes. Let your dentist know if symptoms get worse. This information is not intended to replace advice given to you by your health care provider. Make sure you discuss any questions you have with your health care provider. Document Revised: 11/26/2020 Document Reviewed: 11/26/2020 [employer] Patient Education 2022 [employer] Follow Up Care 05/11/2023 21:26:40 With:Linda Sheppard DO Address: Roel Julien, [facility] C, [facility] [address] [place] [address]- When:05/14/2023 [facility] 05-11-2023 Evaluation + Plan note Extrac roxann from: Title:ED Note Author:Violet Walters PA-C ate:05/11/23 1. Pain, dental (K08.89: Oth er specified disorders of teeth and supporting structures) Ordered: amoxicillin-clavulanate, = 1 tab(s), Oral, q12hr, X 7 day(s), # 14 tab(s), Refills(s) 0, Pharmacy: [facility], 160, cm, 05/11/23 21:53:00 EST, Height/Length Dosing, 110, kg, 05/11/23 21:53:00 EST, Weight Dosing chlorhexidine topical, 0.018 gm, 15 mL, Oral, BID, 480 mL, Refill(s) 0, (swish and spit; do not swallow), [facility], 160, cm, 05/11/23 21:53:00 EST, Height/Length Dosing, 110, kg, 05/11/23 21:53:00 EST, Weight Dosing 2. Infected dental caries (K02.9: Dental caries, unspecified) Ordered: amoxicillin-clavulanate, = 1 tab(s), Oral, q12hr, X 7 day(s), # 14 tab(s), Refills(s) 0, Pharmacy: [facility], 160, cm, 05/11/23 21:53:00 EST, Height/Length Dosing, 110, kg, 05/11/23 21:53:00 EST, Weight Dosing chlorhexidine topical, 0.018 gm, 15 mL, Oral, BID, 480 mL, Refill(s) 0, (swish and spit; do not swallow), [facility], 160, cm, 05/11/23 21:53:00 EST, Height/Length Dosing, 110, kg, 05/11/23 21:53:00 EST, Weight Dosing 3. First trimester (Z34.91: Encounter for supervision of normal , unspecified, first trimester) Periapical abscess without sinus (K04.7: Periapical abscess without sinus) Orders: ketorolac, 30 mg = 1 mL, Injection, IntraMuscular, Once, Stop date 05/11/23 23:31:00 EST, STAT, Start date 05/11/23 23:31:00 EST, 05/11/23 23:31:00 EST [facility]03-05-2024 Hospital Discharge instructions* Discharge Instructions* Chet Berumen DO - 05/10/2023 11:50 AM EST Use amoxicillin as prescribed. Use Tylenol as needed for pain. Follow-up with dentist as soon as possible. * Attachments The following attachments cannot be sent through Care Everywhere. * Tooth Decay (Comoran) * Tooth and Gum Pain (Comoran) [facility] History of Present illness Narrative* Angelito Harvey [...] Supplements: Reviewed Current Outpatient Medications Ordered in [facility] Medication Sig Dispense Refill baclofen [...] - 6-7 PM- crock pot meals- goulash; Bhutanese chicken; spicy rice with chicken and beans; [...] calorie goals/day. Estimated Nutritional Needs: Calorie Needs: 9798-5593 kcals/day (MSJ x 1.3AF -500-1000 to promote gradual weight loss) Patient/Family Education: Learner: family and patient Readiness: action - ready to set action plan and implement goals Barriers to Learning: none Method: explanation and handout Response: verbalizes understanding Expected Adherence: good Education Materials Provided: Healthy Meal Planning handout ([facility]), Goal Sheet, 1,445-Uexrwis9-Hmf Menus (NCM), 1,800-Calorie 5-Day Menus (NCM), Weight Loss Tips ([place]) Monitoring/Evaluation: Lab results, weight, food recall, meal planning, goal achievement, physical activity, medication management. This documentation has been sent to the referring healthcare provider. Angelito Harvey RDN, Personal Office documented in this [id number] History of Present illness Narrative* Farhat Vang [...] C hepatitis virus. Patient was referred to buckle stapler and the recommendation was made for a [...] improve, for Follow Up. documented in this [id number] History of Present illness Narrative* Farhat Vang [...] current medications that are prescribed by her surgical specialist. She has 4 children at home [...] Not difficult at all documented in this [id number] History of Present illness Narrative* Holland Ann [...] Procedure: SECTION; Surgeon: Roslyn Stevenson MD; Location: [facility]; Service: OBGYN SECTION, LOW TRANSVERSE 3 [...] Friends and Family: Not on file Attends [employer]: Not on file Active Member of [...] Report 12/29/2020 Final Value:Gynecologic Cytology Report Case: [id number] Authorizing Provider: Germania Valentino, Collected: 12/29/2020 11:09 AM MOLDER MACHINE Ordering Location: [facility] BOX LINER - An Received: 12/30/2020 12:03 [facility] First Screen: Violet Craig Rescreen: Talya [...] from every slide are reviewed by a recycling coordinator. Specimen processing and Primary Screening performed at: [facility] - [address] [place] [address]2019 HPV Results 12/29/2020 Final Value:This result contains [...] physician. Holland Ann MD documented in this [id number] History of Present illness Narrative* Jeimy Tan LPN - 01/15/2021 11:17 AM EST This nurse acted as a admitting coordinator for a rectal exam by Dr. Ann for Tia. Tia verbalized consent to be examined, appeared comfortable and tolerated the exam well. documented in this [id number] History of Present illness Narrative* Neris Ulloa, [...] oatmeal packet. Snack celery + PB or Martiniquais yogurt or green peppers. Lunch - will be light if full from snack and may have an early dinner. Dinner - pork chops, steamed vegetables. Snack - Martiniquais yogurt or vegetables or watermelon. Beverages - [...] prescription for Current Outpatient Medications Ordered in [facility] Medication Sig Dispense Refill blood [...] BLOOD SUGAR FOUR TIMES DAILY No current [facility]-ordered facility-administered medications on file. SMBG [...] the referring healthcare provider. documented in this [id number] Instructions* Patient Instructions* Zelda Bautista CNP - [...] to renew/prescribe testing supplies. documented in this [id number] History of Present illness Narrative* Zelda Bautista [...] visit with us. The patient did bring Aria Glassworkslood sugar meter with her for download today however there is not many readings on it. She states she started a new job at [employer] and does noise get breaks to check [...] 4. Patient to cont. To follow with casting wheel operator 5. Patient will require 2 hour 75 gram OGTT 8-12 weeks after delivery. 6. Follow-up in 2 weeks. Risks and potential complications of diabetes were reviewed with the patient. Electronically signed by Zelda MARIN 07/09/2110:03 AM documented in this [id number] History of Present illness Narrative* Lelo Gallegos [...] month during . While awaiting appointment with casting wheel operator, patient provided with details of GDM [...] 1 hour post prandial. 4. Referral to casting wheel operator 5. Patient will require 2 hour 75 gram OGTT 8-12 weeks after delivery. 6. Follow-up in 2 weeks. Risks and potential complications of diabetes were reviewed with the patient. documented in this encounterTexasHealth[facility] + Plan note No data available for this section [facility] Diagnosis Diet controlled gestational diabetes mellitus (GDM) in second trimester [facility] Diagnosis Acute frontal sinusitis, recurrence not specified- Primary documented in this encounter [employer] Phone: evalqxrwld note* Diagnosis Diet controlled gestational diabetes mellitus (GDM) in third trimester- Primary [facility]* Diagnosis Diet controlled gestational diabetes mellitus (GDM) in third trimester [facility]* Diagnosis Viral URI- Primary Acute upper respiratory infections of unspecified site documented in this encounter [employer] Phone: evalyvlxog note* Diagnosis Strain of rhomboid muscle, initial encounter Chest wall muscle strain, initial encounter documented in this encounter [employer] Phone: evaluation note* Diagnosis Viral syndrome- Primary Unspecified viral infection, in conditions classified elsewhere and of unspecified site documented in this encounter [employer] Phone: Evaluation note* Diagnosis Hemorrhoids, unspecified hemorrhoid type documented in this encounter [facility] note* Diagnosis COVID-19- Primary Omphalitis in adult Unspecified local infection of skin and subcutaneous tissue documented in this encounter [employer]: evaluation note* Diagnosis Encounter for general adult medical examination with abnormal findings- Primary Anxiety and depression History of opioid abuse (HCC) Morbid obesity with body mass index (BMI) of 40.0 or higher (HCC) documented in this encounter [facility] note* Diagnosis Anxiety and depression- Primary At risk for obstructive sleep apnea Chronic bilateral low back pain without sciatica Hepatitis C antibody positive in blood Body mass index 40.0-44.9, adult (HCC) Body Mass Index 40.0-44.9, adult History of opioid abuse (HCC) documented in this encounter [facility] note* Diagnosis Morbid obesity with body mass index (BMI) of 40.0 or higher (HCC) documented in this encounter [facility] note* Diagnosis Acute pharyngitis, unspecified etiology- Primary documented in this encounter [employer] Phone: evaluation note* Diagnosis Acute bronchitis, unspecified organism- Primary documented in this encounter [employer] Phone: evaluation note* Diagnosis Masseter muscle spasm- Primary Spasm of muscle Other acute postprocedural pain documented in this encounter [employer] Phone: evaluation note* Diagnosis Dry socket- Primary Alveolitis of jaw documented in this encounter [employer] Phone: evaluation note* Diagnosis Sprain of right ankle, unspecified ligament, initial encounter- Primary documented in this encounter [employer] note* Diagnosis Toothache- Primary Unspecified disorder of the teeth and supporting structures Dental decay Unspecified dental caries documented in this encounter [employer] note* Diagnosis 26 weeks gestation of - Primary state, incidental documented in this encounter [facility]* Instructions* Anuj Quinn MD - 06/24/2020 Although many cyof-zjy-pfwsxjo cough cold flu sinus medications are safe in , I would contact her [facility] office in [facility] to verify what your [facility]OX [facility] group feels a safe in . Tylenol [...] be sent through Care Everywhere. * Sinusitis (Comoran) documented in this [employer] Phone: Hospital Discharge instructions* Attachments The following attachments cannot be sent through Care Everywhere. * URI (Upper Respiratory Infection) (Comoran) documented in this [employer] Phone: [facility] Discharge instructions* Attachments The following attachments cannot be sent through Care Everywhere. * Muscle Strain (Com[place]an) documented in this [employer] Phone: Hospital Discharge instructions* Attachments The following attachments cannot be sent through Care Everywhere. * Viral Infections (Comoran) documented in this [employer] Phone: hospital Discharge instructions* Attachments The following attachments cannot be sent through Care Everywhere. * Coronavirus Disease (COVID-19): General Info (Comoran) * Coronavirus Disease (COVID-19): Isolation (Comoran) * Piercing: Infection (Comoran) documented in this [employer] Phone: Hospital Discharge instructions* Instructions* Clark Moser MD - 07/22/2021 Use Tylenol or Motrin for pain. Take amoxicillin twice a day. Amoxicillin treats strep throat, ear infections, bronchitis and pneumonia. Call primary care doctor for close follow-up. * Attachments The following attachments cannot be sent through Care Everywhere. * Sore Throat (Comoran) documented in this [employer] Phone: spital Discharge instructions* Attachments The following attachments cannot be sent through Care Everywhere. * Bronchitis ([place]an) [facility]: [facility] Discharge instructions* Attachments The following attachments cannot be sent through Care Everywhere. * Cramp: Muscle (Comoran) * Pain Post-Surgery: Acute (Comoran) documented in [facility] Phone: spital Discharge instructions* Attachments The following attachments cannot be sent through Care Everywhere. * [place] Tooth Extraction: Post-op ([place]an) documented in [facility] Phone: spital Discharge instructions No data available for this section [facility] Discharge instructions* Attachments The following attachments cannot be sent through Care Everywhere. * Ankle Sprain ([place]) documented in this [facility]ITAL[facility] Discharge instructions* Attachments The following attachments cannot be sent through Care Everywhere. * : Weeks 26 to 30 (Comoran) * : When to Call (After 20 Weeks): General Info (Comoran) * : Twins: General Info ([place]an) [facility] No data available for this section [facility] for referral (narrative)* Consultation (Routine) Status Reason Specialty Diagnoses / Procedures Referred By Contact Referred To Contact Authorized Nutrition Diagnoses Diet controlled gestational diabetes mellitus (GDM) in second trimester Lelo Gallegos MD [address] [place] [address] Nutrition Services [address] [place] [address] [facility] for visit Narrative* Consultation (Routine) - Pending Review Specialty Diagnoses / Procedures Referred By Joey grimes Referred To Contact Gastroenterology Diagnoses Hemorrhoids, unspecified hemorrhoid type Germania Galaviz, MOLDER MACHINE [address] [place] [address] Holland Ann MD [facility] [place] [address] Referral ID Status Reason Start Date Expiration Date V isits Requested Visits Authorized [id number] Pending Review 12/29/2020 01/14/2022 1 1 [facility] Assessments Diagnosis Accidental overdose of heroin, [...] FoundDocuments on File Type Date Recorded Patient Student Services Representative Expl anation Advance Directives and Living Will Power of Jigger Artisan Documents on File Type Date Recorded Patient Student Services Representative Expl anation Advance Directives and Living Will 06/14/2019 7:25 AM does not have 2 0 Latest Code Status on File Code Status Date Activated Date Inactivated Comments Full Code 06/15/2019 9:29 AM 06/17/2019 4:38 PM Full Code - Unverified 06/14/2019 8:35 AM 06/15/2019 9:29 AM Documents on File Type Date Recorded Patient Student Services Representative Expl anation Advance Directives and Living Will 06/14/2019 7:25 AM does not have 05/17/2 0 Latest Code Status on File Code Status Date Activated Date Inactivated Comments Full Code 06/15/2019 9:29 AM 06/17/2019 4:38 PM Full Code - Unverified 06/14/2019 8:35 AM 06/15/2019 9:29 AM Documents on File Type Date Recorded Patient Student Services Representative Expl anation Advance Directives and Living Will 06/20/2019 1:10 PM does not have 3/13/2 0 Documents on File Type Date Recorded Patient Student Services Representative Expl anation ACP-Advance Directive ACP-Power of Jigger Artisan Documents on File Type Date Recorded Patient Student Services Representative Expl anation Advance Directives and Living Will 06/20/2019 1:10 PM does not have 3/13/2 0 Documents on File Type Date Recorded Patient Student Services Representative Expl anation Advance Directives and Living Will 08/28/2020 5:58 AM does not have 3/13/2 0 Latest Code Status on File Code Status Date Activated Date Inactivated Comments Full Code 08/28/2020 11:15 AM 08/30/2020 11:53 AM Full Code 08/28/2020 5:31 AM 08/28/2020 11:07 AM Full Code 06/15/2019 9:29 AM 06/17/2019 4:38 PM Documents on File Type Date Recorded Patient Student Services Representative Expl anation Advance Directives and Living Will 08/28/2020 5:58 AM does not have 3/13/2 0 Latest Code Status on File Code Status Date Activated Date Inactivated Comments Full Code 08/28/2020 11:15 AM 08/30/2020 11:53 AM Full Code 08/28/2020 5:31 AM 08/28/2020 11:07 AM Full Code 06/15/2019 9:29 AM 06/17/2019 4:38 PM Documents on File Type Date Recorded Patient Student Services Representative Expl anation Advance Directives and Livin g Will 05/15/2021 12:00 AM Latest Code Status on File Code Status Date Activated Date Inactivated Comments Full Code 10/05/2023 9:02 PM Hospital Course * Savita Stiles PA-C - 06/17/2019 10:12 AM EDT [facility] DISCHARGE SUMMARY Tia Levin Account: [id number] Admitted: 06/14/2019 Discharge Date/Time: 06/17/19 / 10:12 [...] amphetamine and heroine use who presented to [facility] 06/14/19 with complaints of abdominal pain and nausea. [facility] AST 1116 ALT 665 Alk phos 255 T bili 6.5 Lipase 8. CTAP revealed pericholecystic fluid vs GB wall thickening, no gallstones or hepatic pathology noted. Patient transferred to [facility] 06/14/2019 for further treatment and evaluation. [...] She understood this. [place] to [place]. I have reviewed chart for all vitals, diagnostic data, and implementation consultant notes. I discussed patient's case with Dr. Gregorio, Dr. Hay (GI) and RN. Discharge Medications Medication List ASK your doctor about these medications naltrexone microspheres Commonly known as: VivitroL Inject 380 (three hundred eighty) mg into the shoulder, thigh, or buttocks every 30 (thirty) days . Physician(s) Family: Physician No, Phone: None, Address: [facility] Follow Up: Javier Hay MD [address] [place] [address] Ag Kendall [address] [place] [id number] Follow up Repeat weekly CBC, CMP and PT/INR for the next 3-4 weeks then follow up out patient with Dr. Hay. Laboratory Follow Up by [facility]: Weekly labs for CBC, CMP, PT/INR Additional Information: Patient seen and examined day of discharge. For more information regarding patient's care, including complete radiology reports, please contact [facility] at Patient instructions, including activity, [...] amphetamine and heroine use who presented to [facility] 06/14/19 with complaints of abdominal pain and nausea. [facility] AST 1116 ALT 665 Alk phos 255 T bili 6.5 Lipase 8. CTAP revealed pericholecystic fluid vs GB wall thickening, no gallstones or hepatic pathology noted. Patient transferred to [facility] 06/14/2019 for further treatment and evaluation. [...] 1:16 PM EDT RESOURCES FOR PRIMARY CARE [facility] Primary Care Closed Opens tomorrow [address], [place] [address] [facility] [place] [address] DIRECTIONS WEBSITE [facility] Walk-In Care Closed Opens tomorrow [address] [place] [address] documented in this encounter* Instructions* Adia Dillon, MOLDER MACHINE - 08/13/2019 Please stay well-hydrated. I strongly encourage you to follow-up with Dr. Yadav regarding heroin abuse. Dr. Echeverria is well-known in the community for treating opiate addiction. Should you have any troubles with shortness of breath please return the ER immediately. * Attachments The following attachments cannot be sent through Care Everywhere. * Opioid Use Disorder: Medication-Assisted Treatment: General Info (Comoran) documented in this encounter* Attachments The following attachments cannot be sent through Care Everywhere. * Bacterial Vaginosis (Comoran) * Trichomoniasis (Com[place]an) documented in this encounter* Attachments The following attachments cannot be sent through Care Everywhere. * Dental Surgery: Generic: Post-op (Comoran) documented in this encounter* Attachments The following attachments cannot be sent through Care Everywhere. * Bronchitis (Comoran) * Pneumonia (Comoran) documented in this encounter* Attachments The following attachments cannot be sent through Care Everywhere. * Poison Arabella - [place] - and [place] ([place]an) documented in this encounter History of Present Illness * Javier Hay MD - 06/17/2019 9:59 AM EDT GASTROENTEROLOGY DAILY PROGRESS NOTE 1 Patient Name: Tia Levin MR #: [id number] Assessment/Plan: Elevated LFTs Assessment & Plan 29yo F with PMHx IVDU and hepatitis C who presents from [facility] with elevated LFTs and imaging c/f [...] Auguste MD - 06/17/2019 7:41 AM EDT [facility] Inpatient Progress Note 06/17/2019 Tia Levin 1990 [id number] Assessment/Plan: Tia Levin is a 29 y.o. female with a history of amphetamine and heroine use who presented to [facility] 06/14/19 with complaints of abdominal pain and nausea. OL AST 1116 ALT 665 Alk phos 255 T bili 6.5 Lipase 8. CTAP revealed pericholecystic fluid vs GB wall thickening, no gallstones or hepatic pathology noted. Patient transferred to [facility] 06/14/2019 for further treatment and evaluation. 1. Acute Liver Injury: [facility] AST 1116 ALT 665 Alk phos [...] labs, diagnostics, vitals including pulse ox, and implementation consultant/other provider recommendations. No acute issues overnight [...] 2 Patient Name: Tia Levin MR #: [id number] Assessment/Plan: Elevated LFTs Assessment & Plan 29yo F with PMHx IVDU and hepatitis C who presents from [facility] with elevated LFTs and imaging c/f [...] Auguste MD - 06/16/2019 9:38 AM EDT [facility] Inpatient Progress Note 06/16/2019 Tia Levin 1990 [id number] Assessment/Plan: Tia Levin is a 29 y.o. female with a history of amphetamine and heroine use who presented to [facility] 06/14/19 with complaints of abdominal pain and nausea. [facility] AST 1116 ALT 665 Alk phos 255 T bili 6.5 Lipase 8. CTAP revealed pericholecystic fluid vs GB wall thickening, no gallstones or hepatic pathology noted. Patient transferred to [facility] 06/14/2019 for further treatment and evaluation. 1. Acute Liver Injury: [facility] AST 1116 ALT 665 Alk phos [...] recent labs, diagnostics, vitals including pulseox, and implementation consultant/other provider recommendations. No acute issues overnight [...] 2 Patient Name: Tia Levin MR #: [id number] Assessment/Plan: Elevated LFTs Assessment & Plan 29yo F with PMHx IVDU and hepatitis C who presents from [facility] with elevated LFTs and imaging c/f [...] Radiology, Medications and Transcriptions Aisha Hare CNP [facility] (for staff use only) * Indra Pruitt MD - 06/15/2019 10:43 AM EDT [facility] Inpatient Progress Note 06/15/2019 Tia Levin 1990 [id number] Assessment/Plan: Tia Levin is a 29 y.o. female with a history of amphetamine and heroine use who presented to [facility] 06/14/19 with complaints of abdominal pain and nausea. [facility] AST 1116 ALT 665 Alk phos 255 T bili 6.5 Lipase 8. CTAP revealed pericholecystic fluid vs GB wall thickening, no gallstones or hepatic pathology noted. Patient transferred to [facility] 06/14/2019 for further treatment and evaluation. [...] have a PCP and refused a case specialist consult for assistance. Verified insurance and Rx. [...] spoke with patient about going to any [facility] to have her lab taken so it will be available for review on 06/20/19 when she is called for her TCC appointment. Patient agreed with this plan. documented in this encounter* Anastasiia Garza CNP - 06/20/2019 1:16 PM EDT Attempted to call the patient for her tele-health visit today though she did not answer. Called [employer] number 5 times and home phone once, [...] daily (lemon water) Occasional iced coffee at [employer]. Was drinking a lot of Mountain Dew and Energy drinks prior to but stopped. Meals Away From Home - most days, fast food Past Medical History: Past Medical History: Diagnosis Date Anxiety Depression Infectious viral hepatitis hep c PTSD (Post-Traumatic Stress Disorder) History From: History obtained from patient and chart review. Current/Pertinent Medications: prescription for Current Outpatient Medications Ordered in [facility] Medication Sig Dispense Refill amoxicillin [...] daily . 90 tablet 3 No current [facility]-ordered facility-administered medications on file. SMBG [...] index (BMI) of 40.0 or higher ([facility]) Farhat Vang MD [address] [facility] [address] [place] [address] Referral ID Status Reason Start Date Expiration Date Visits Requested Visits Authorized [id number] Authorized Specialty Services Required/Pat ient's Best Interest 04/16/2021 04/16/2022 1 1 Specialty Diagnoses / Procedures Referred By Contac t Referred To Contact Neurosurgery Diagnoses Chronic bilateral low back pain without sciatica Farhat Vang MD [address] [phone] Carina Kline MD [address] [place] [address] Referral ID Status Reason Start Date Expiration Date Visits Requested Visits Authorized [id number] Authorized Specialty Services Required/Pat ient's Best Interest 05/14/2021 05/14/2022 1 1 Specialty Diagnoses / Procedures Referred By Joey t Referred To Contact Rehabilitation Diagnoses Chronic bilateral low back pain without sciatica Farhat Vang MD [address] [phone] Referral ID Status Reason Start Date Expiration Date Visits Requested Visits Authorized [id number] Authorized Specialty Services Required/Pat ient's Best Interest 05/14/2021 05/14/2022 1 1 Specialty Diagnoses / Procedures Referred By Joey t Referred To Contact Diagnoses At risk for obstructive sleep apnea Farhat Vang MD [address] [phone] Gabriel Jacinto MD [address] [facility] [place] [address] Referral ID Status Reason Start Date Expiration Date Visits Requested Visits Authorized [id number] Authorized Specialty Services Required/Pat ient's Best Interest 05/14/2021 05/14/2022 1 1 Additional Source Comments Reason for Visit (unrecogniz ed section and content) Reason Comments Drug Overdose Pt was brought in by [facility] for heroin OD. Prior to arrival [facility] [...] in second trimester Lelo Gallegos MD [address] [place] [address] Nutrition Services [address] [place] [address] Reason Comments Gestational Diabetes Status Reason Specialty Diagnoses / Procedures Referred By Contact Referred To Contact Closed Endocrinology Diagnoses Diet controlled gestational diabetes mellitus (GDM) in second trimester Roslyn Stevenson MD [address] [address] Lelo Gallegos MD [address] [place] [address] Reason Comments Pharyngitis sore throat and head [...] index (BMI) of 40.0 or higher ([facility]) Farhat Vang MD [address] [facility] [address] [place] [address] Nutrition Services [address] [place] [address] Referral ID Status Reason Start Date Expiration Date Visits Requested Visits Authorized [id number] Authorized Specialty Services Required/Pat ient's Best Interest [...] and Physical Note 06/14/19 Tia Levin 1990 [id number] Assessment/Plan: Tia Levin is a 29 y.o. female with a history of amphetamine and heroine use who presented to [facility] 06/14/19 with complaints of abdominal pain and nausea. [facility] AST 1116 ALT 665 Alk phos 255 T bili 6.5 Lipase 8. CTAP revealed pericholecystic fluid vs GB wall thickening, no gallstones or hepatic pathology noted. Patient transferred to [facility] 06/14/2019 for further treatment and evaluation. 1. Elevated LFTs: [facility] AST 1116 ALT 665 Alk phos [...] amphetamine and heroine use who presented to [facility] 06/14/19 with complaints of abdominal pain and nausea. [facility] AST 1116 ALT 665 Alk phos 255 T bili 6.5 Lipase 8. CTAP revealed pericholecystic fluid vs GB wall thickening, no gallstones or hepatic pathology noted. Patient transferred to [facility] 06/14/2019 for further treatment and evaluation. [...] labs, diagnostics, vitals including pulse ox, and implementation consultant/other provider recommendations. Discussed with collaborating physician [...] file Gets together: Not on file Attends pentecostal service: Not on file Active member of [...] reviewed, including documentation from previous hospitalizations and implementation consultant recommendations as summarized below. Briefly, patient [...] Name: Tia Levin Admit Date: MR #: [id number] : 1990 Senior addendum 29 y/o F [...] Hepatitis C, and hx of presents to [facility] with jaundice and abdominal pain. -RUQ [...] Fleming MD General Surgery, PGY 2 Pager# [phone] 06/16/2019, 10:43 AM After 5 PM and on Weekends, please page [phone] (Surgery Inside Outside Sales Representative collision repair technician) History of Present Illness: Patient presented for [...] file Gets together: Not on file Attends pentecostal service: Not on file Active member of [...] patient. I discussed the case with the resident/SECURITY AMBASSADOR and agree with the findings and plan as documented in his/her note and/or any note I supplied. Associated Order(s): IP CONSULT TO GASTROENTEROLOGY GASTROENTEROLOGY CONSULT NOTE 4 Patient Name: Tia Levin Admit Date: MR #: [id number] : 1990 Physicians: Physician No (Family); Brie Moreno MD (Referring) Consult Ordered By: Franny Sims PA-C Assessment and Plan: Other Elevated LFTs Assessment & Plan 29yo F with PMHx IVDU and hepatitis C who presents from [facility] with elevated LFTs and imaging c/f [...] IVDU and hepatitis C who presents from [facility] with elevated LFTs and imaging c/f [...] she has been in and out of care home over past 3mo. She denies EtOH. Denies NSAID and significant Tylenol use. Denies new medications, herbal supplements, or recent ATBx. She denies any known FH of liver disease or GI related malignancies. Current LFTs include: AP 255, AST/ALT 665/1116, TB 6.5 (of note were normal in 02/2019). CTa/p w IVC at [facility] demonstrated moderate GBW thickening w pericholecystic [...] file Gets together: Not on file Attends pentecostal service: Not on file Active member of [...] Invalid input(s): CO2, LABALBU Aisha Hare, MARK [facility] (for staff use only) Associated [...] reviewed, including documentation from previous hospitalizations and implementation consultant recommendations as summarized below. Briefly, patient [...] IVDU and hepatitis C who presents from [facility] with elevated LFTs and imaging c/f [...] secti on and content) ED PROVIDER NOTE [facility] EMERGENCY DEPARTMENT NAME: Tia Levin AGE: 29 y.o. : 1990 VISIT DATE: 08/13/2019 CSN: [id number] PCP: Physician No Chief Complaint Patient presents with Drug Overdose This is a 29-year-old female brought to the ER via EMS for evaluation. Time my exam patient is alert and oriented. She states she was in the [place] parking lot bent over in her car [...] file Gets together: Not on file Attends pentecostal service: Not on file Active member of [...] nursing note reviewed. Exam conducted with a admitting coordinator present (Nurses at the bedside). Constitutional: General: [...] for helping people with drug addiction. [address] [facility] [address] Contact information for after-discharge care Follow-up information has not been specified. Adia Dillon CNP 08/13/191948 Pt brought in by [facility], states she was found by [facility] unresponsive [...] content) DATE CREATED AUTHOR 08/21/2019 [facility] DATE CREATED AUTHOR AUTHOR'S ORGANIZ ATION 02/15/2021 [facility] DATE CREATED AUTHOR AUTHOR'S ORGANIZ ATION 05/18/2021 [facility] DATE CREATED AUTHOR AUTHOR'S ORGANIZ ATION 07/02/2021 [facility] DATE CREATED AUTHOR AUTHOR'S ORGANIZ ATION 07/09/2021 [facility] DATE CREATED AUTHOR AUTHOR'S ORGANIZ ATION 07/05/2022 [facility] DATE CREATED AUTHOR AUTHOR'S ORGANIZ ATION 05/14/2023 [facility] DATE CREATED AUTHOR AUTHOR'S ORGANIZ ATION 10/07/2023 [facility] DATE CREATED AUTHOR AUTHOR'S ORGANIZ ATION 10/28/2023 [facility] EP[facility] DATE CREATED AUTHOR AUTHOR'S ORGANIZ ATION 10/29/2023 [facility] Ordered Prescriptions (unrec ognized section and [...]
Care Teams (unrecognized sec tion and content) Caption Writer Relationship Specialty Start Date End Date No, Physician [facility] PCP - General 12/29/20 Germania Galaviz, MOLDER MACHINE [address] [place] [address] Nurse Practitioner Obstetrics/Gynecology 11/01/19 Caption Writer Relationship Specialty Start Date End Date No, Physician [facility] PCP - General 12/29/20 Germania Galaviz, MOLDER MACHINE [address] [facility] [address] [place] [address] Nurse Practitioner Obstetrics/Gynecology 11/01/19 Caption Writer Relationship Specialty Start Date End Date Farhat Vang MD [address] [facility] [address] [place] [address] PCP - General Family Medicine 04/16/21 Germania Galaviz, MOLDER MACHINE [address] [place] [address] Nurse Practitioner Obstetrics/Gynecology 11/01/19 Radha Pantoja MD [address] [place] [address] Banking Services Clerk Obstetrics/Gynecology 02/02/21 Yvonne Santos MD [address] [place] [address] Banking Services Clerk Obstetrics/Gynecology 02/02/21 Regla Dias CN [address] [facility] [place] [address] Film Maker Obstetrics/Gynecology 02/02/21 Caption Writer Relationship Specialty Start Date End Date Farhat Vang MD [address] [facility] [address] [place] [address] PCP - General Family Medicine 04/16/21 Germania Galaviz, MOLDER MACHINE [address] [place] [address] Nurse Practitioner Obstetrics/Gynecology 11/01/19 Radha Pantoja MD [address] [place] [address] Banking Services Clerk Obstetrics/Gynecology 02/02/21 Yvonne Santos MD [address] [place] [address] Banking Services Clerk Obstetrics/Gynecology 02/02/21 Regla Dias CN [address] [place] [address] Film Maker Obstetrics/Gynecology 02/02/21 Caption Writer Relationship Specialty Start Date End Date Farhat Vang MD [address] [address] PCP - General Family Medicine 04/16/21 Germania Galaviz, MOLDER MACHINE [address] [facility] [place] [address] Nurse Practitioner Obstetrics/Gynecology 11/01/19 Radha Pantoja MD [address] [facility] [place] [address] Banking Services Clerk Obstetrics/Gynecology 02/02/21 Yvonne Santos MD [address] [facility] [place] [address] Banking Services Clerk Obstetrics/Gynecology 02/02/21 Regla Dias, CN [address] [facility] [place] [address] Film Maker Obstetrics/Gynecology 02/02/21 Caption Writer Relationship Specialty Start Date End Date Linda Sheppard DO [address] [facility] [place] [address] PCP - General Family Medicine 09/04/22 Caption Writer Relationship Specialty Start Date End Date Linda Sheppard DO [address] [facility] [place] [address] PCP - General Family Medicine 09/04/22 Caption Writer Relationship Specialty Start Date End Date Linda Sheppard, [address] [facility] [place] [address] PCP - General Family Medicine 09/04/22 FOR [...] BE BASED ON THE PRIMARY CLINICAL RECORDS. [employer] [facility]. provides no warranty or guarantee of the accuracy or completeness of information in this document.
[2023-11-08 08:18] VITALS: BP 103/66; PULSE 107
== END 2023-11-08 09:17 | disposition home or self-care (01) ==
LOC: US 07:06 → FBC 07:29
PROVIDERS: Visit Provider Obstetrics & Gynecology
DX: O30.033 Twin pregnancy, monochorionic/diamniotic, third trimester (principal); Z3A.31 31 weeks gestation of pregnancy
CPT/HCPCS: 76818

== ENCOUNTER 2023-11-11 06:58 | Outpatient (OUT) | payer BC, SELFPAY ==
--- OUTSIDE RECORDS SUMMARY | 2023-11-11 07:03 | XMS_ITS | CCD ---
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 Role Phone Unavailable Primary Care Provider [...] PAPADOPOL, NARCIS DAWIT Primary Care Unavaila ble SATISHBRAD BRIE GAGE Attending Unavailabl e PAPADOPOL, NARCIS DAWIT Primary Care Unavaila ble Unavailable Primary Care Provider UnavailLinda Marie Primary Care Physician ELIANA ., DR GRANADOS Consulting Unavailable ELIANA ., DR GRANADOS Admitting Unavailable ELIANA ., DR GRANADOS Attending Unavailable ELIANA ., DR GRANADOS Consulting Unavailable EILANA ., DR GRANADOS Admitting Unavailable ELIANA ., DR GRANADOS Attending Unavailable ELIANA ., DR GRANADOS Admitting Unavailable ELIANA ., DR GRANADOS Attending Unavailable ELIANA ., DR GRANADOS Attending Unavailable ELIANA ., DR GRANADOS Consulting Unavailable ELIANA ., DR GRNAADOS Admitting Unavailable BETTYE DANIELS Consulting Unavailable Linda Sheppard DO Primary Care Provider Jonathan Martinez Attending Unavailable Zac Fields Attending Unavailable Linda Sheppard Referring Unavailable Todd Smart Attending Unavailable MD Todd Smart Admitting Unavailable SILVER LINDA Vijaya Primary Care Unavailable CHET BERUMEN Attending Unavailable LINDA SHEPPARD Primary Care Unavailable CHET BERUMEN Attending Unavailable MARK DUMONT Referring Unavailable LINDA SHEPPARD Primary Care Unavailable MARK DUMONT Referring Unavailable LINDA SHEPPARD Primary Care Unavailable LINDA SHEPPARD Primary Care Unavailable NICHOLAS ROGER Attending Unavailable BLAKE KAUFFMAN Referring Unavailable LINDA SHEPPARD Primary Care Unavailable VIOLET JUAREZ Admitting Unavailable VIOLET JUAREZ Attending Unavailable LINDA SHEPPARD Primary Care Unavailable VIOLET JUAREZ Consulting Unavailable JOE JARAMILLO Attending Unavailable LINDA SHEPPARD Primary Care Unavailable MARK DUMONT Attending Unavailable MARK DUMONT Attending Unavailable MARK DUMONT Attending Unavailable MARK DUMONT Attending Unavailable MARK DUMONT Attending Unavailable MARK DUMONT Attending Unavailable Medications Current Medications Medication Drug Class(es) [...] day(s), # 14 tab(s), Refills(s) 0, Pharmacy: [facility], 160, cm, 05/11/23 21:53:00 EST, Height/Length [...] oral solution (2 sources) alpha-Adrenergic Agonist, Uncompetitive X-rmlpej-E-aspartate Receptor Antagonist, Sigma-1 Agonist Start: End: take 5 mL by mouth four times daily as needed for cough brompheniramine-pse udoephedrine-DM (BROMFED DM) 2-30-10 MG/5ML syrup Take 5 mLs by mouth 4 times daily as needed for Congestion or Cough 240 mL 1 10/12/2021 11/11/2021 Active Start: 11-07-2020 End: 11-12-2020 take 5 mL by mouth three times daily as needed for cough onpuvxpudefhljk-jqvnkqoatqbivck-[place] 2-30- 10 MG/5ML syrup Take 5 mLs [...] 0, (swish and spit; do not swallow), [facility], 160, cm, 05/11/23 21:53:00 EST, Height/Length [...] Active Dextromethorphan / guaiFENesin (2 sources) Uncompetitive Q-xgkwkp-P-asparta te Receptor Antagonist, Sigma-1 Agonist End: 06-24-2020 [...] day(s), # 15 tab(s), Refills(s) 0, Pharmacy: [facility], 160, cm, 05/13/23 11:33:00 EST, Height/Length [...] for Pain. 0 05/10/2023 Discontinued (LIST CLEANUP) [id number] 200 actuat albuterol 0.09 mg/actuat metered dose [...] Oral, Every 4 hours PRN, indigestion, Starting [facility] 06/14/19 at 0831 azithromycin 250 mg [...] Oral, Daily PRN, constipation, For constipation., Starting [facility] 06/14/19 at 0831 naloxone (NARCAN) injection [...] Translations: [Accidental overdose of heroin, initial encounter ([facility])] Episodic Substance-related disorders (1 source) Opioid [...] l admission (14 sources) Admission statuses; Translations: [half-way (current) use of opiate analgesic] Onset: 05-18-2019 [...] Coag (Bld) [Time] 29.8 s Normal 23.9-33.8 [facility] Comment on above: Result Comment: IV Heparin Therapy Range: 62.0-94.0 Performed By: #### P T, PTT, BMP, CDP, TROPI #### [facility] [address] [place] [address] Repeater Chief: Guero Sandoval MD Basic Metabolic Profon 10-04 Anion gap [Moles/Vol] 13 mmol/L Normal - [facility] Comment on above: Performed By: #### P T, PTT, BMP, CDP, TROPI #### [facility] [address] [place] [address] Repeater Chief: Guero Sandoval MD BUN/CRE Ratio Result cannot be calculated, Creatinine below linear range. Normal - [facility] Comment on above: Performed By: #### P T, PTT, BMP, CDP, TROPI #### [facility] [address] [place] [address] Repeater Chief: Guero Sandoval MD Calcium [Mass/Vol] 8.7 mg/dL Normal 8.6-10.4 [facility] Comment on above: Performed By: #### P T, PTT, BMP, CDP, TROPI #### [facility] [address] [place], [place] [id number] Repeater Chief: Guero Sandoval MD Chloride [Moles/Vol] 105 mmol/L Normal 98-107 [facility] Comment on above: Performed By: #### P T, PTT, BMP, CDP, TROPI #### [facility] [address] [place], [place] [phone] Repeater Chief: Guero Sadnoval MD CO2 [Moles/Vol] 18 mmol/L Low 20-31 [facility] Comment on above: Performed By: #### P T, PTT, BMP, CDP, TROPI #### [facility] [address] [place], [place] [phone] Repeater Chief: Guero Sandoval MD Creatinine [Mass/Vol] mg/dL Low 0.5-0.9 [facility] Comment on above: Performed By: #### P T, PTT, BMP, CDP, TROPI #### [facility] [address] [place], [place] [phone] Repeater Chief: Guero Sandoval MD eGFR Can not be calculated Normal >60 [facility] Comment on above: Result Comment: These results [...] P T, PTT, BMP, CDP, TROPI #### [facility] [address] [place] [address] Repeater Chief: Guero Sandoval MD Glucose [Mass/Vol] 111 mg/dL High 70-99 [facility] Comment on above: Performed By: #### P T, PTT, BMP, CDP, TROPI #### [facility] [address] [place] [address] Repeater Chief: Guero Sandoval MD Potassium [Moles/Vol] 3.8 mmol/L Normal 3.7-5.3 [facility] Comment on above: Performed By: #### P T, PTT, BMP, CDP, TROPI #### [facility] [address] [place] [address] Repeater Chief: Guero Sandoval MD Sodium [Moles/Vol] 136 mmol/L Normal 135-144 [facility] Comment on above: Performed By: #### P T, PTT, BMP, CDP, TROPI #### [facility] [address] [place] [address] Repeater Chief: Guero Sandoval MD Urea nitrogen [Mass/Vol] 6 mg/dL Normal 6-20 [facility] Comment on above: Performed By: #### P T, PTT, BMP, CDP, TROPI #### [facility] [address] [place] [address] Repeater Chief: Guero Sandoval MD Brain Natri. Peptideon 10-04 Pro-BNP <36 Normal 0-300 [facility] Comment on above: Result Comment: An a ge-independent cutoff point of 300 pg/ml has a 98% negative predictive value excluding acute heart failure. Performed By: #### B CARDROOM MANAGER, TROPI #### [facility] [employer] [address] [place] [address] Repeater Chief: Thor Hernández MD CBC with Diffon 10-05-2023 Abs. Basophil 0.04 k/uL Normal 0.00-0.20 [facility] Comment on above: Performed By: #### P T, PTT, BMP, CDP, TROPI #### [facility] [address] [place] [phone] Repeater Chief: Guero Sandoval MD Abs.Imm.Granulocyte 0.16 k/uL Normal 0.00-0.30 [facility] Comment on above: Performed By: #### P T, PTT, BMP, CDP, TROPI #### [facility] [address] [place] [address] Repeater Chief: Guero Sandoval MD Abs.Neutrophil (Seg) 8.05 k/uL High 2.5-7.0 [facility] Comment on above: Performed By: #### P T, PTT, BMP, CDP, TROPI #### [facility] [address] [place] [address] Repeater Chief: Guero Sandoval MD Basophils/100 WBC (Bld) 0 % Normal 0-2 M [facility] Comment on above: Performed By: #### P T, PTT, BMP, CDP, TROPI #### [facility] [address] [place] [phone] Repeater Chief: Guero Sandoval MD Eosinophils (Bld) [#/Vol] 0.08 10*3/uL Normal 0.00-0.4 0 [facility] Comment on above: Performed By: #### P T, PTT, BMP, CDP, TROPI #### [facility] [address] [place] [address] Repeater Chief: Guero Sandoval MD Eosinophils/100 WBC (Bld) 1 % Normal 0-5 [facility] Comment on above: Performed By: #### P T, PTT, BMP, CDP, TROPI #### [facility] [address] [place] [address] Repeater Chief: Guero Sandoval MD Erythrocyte distribution width (RBC) [Ratio] 13.1 % Normal 12.1-15.2 [facility] Comment on above: Performed By: #### P T, PTT, BMP, CDP, TROPI #### [facility] [address] [place] [address] Repeater Chief: Guero Sandoval MD Hematocrit (Bld) [Volume fraction] 28.8 % Low 36.0-46.0 [facility] Comment on above: Performed By: #### P T, PTT, BMP, CDP, TROPI #### [facility] [address] [place] [phone] Repeater Chief: Guero Sandoval MD Hemoglobin (Bld) [Mass/Vol] 9.8 g/dL Low 12.0-16.0 [facility] Comment on above: Performed By: #### P T, PTT, BMP, CDP, TROPI #### [facility] [address] [place] [address] Repeater Chief: Guero Sandoval MD Immature granulocytes/100 WBC (Bld) 2 % Normal 0-5 [facility] Comment on above: Performed By: #### P T, PTT, BMP, CDP, TROPI #### [facility] [address] [place] [phone] Repeater Chief: Guero Sandoval MD Lymphocytes (Bld) [#/Vol] 1.61 10*3/uL Normal 1.00-4.8 0 [facility] Comment on above: Performed By: #### P T, PTT, BMP, CDP, TROPI #### [facility] [address] [place] [phone] Repeater Chief: Guero Sandoval MD Lymphocytes/100 WBC (Bld) 15 % Normal 15-40 [facility] Comment on above: Performed By: #### P T, PTT, BMP, CDP, TROPI #### [facility] [address] [place] [phone] Repeater Chief: Guero Sandoval MD MCH (RBC) [Entitic mass] 27.7 pg Normal 26.0-34.0 [facility] Comment on above: Performed By: #### P T, PTT, BMP, CDP, TROPI #### [facility] [address] [place] [address] Repeater Chief: Guero Sandoval MD MCHC (RBC) [Mass/Vol] 34.0 g/dL Normal 31.0-37.0 [facility] Comment on above: Performed By: #### P T, PTT, BMP, CDP, TROPI #### [facility] [address] [place] [phone] Repeater Chief: Guero Sandoval MD MCV (RBC) [Entitic vol] 81.4 fL Normal 80.0-100.[address] [facility] Comment on above: Performed By: #### P T, PTT, BMP, CDP, TROPI #### [facility] [address] [place] [address] Repeater Chief: Guero Sandoval MD Monocytes (Bld) [#/Vol] 0.77 10*3/uL Normal 0.00-1.00 [facility] Comment on above: Performed By: #### P T, PTT, BMP, CDP, TROPI #### [facility] [address] [place] [address] Repeater Chief: Guero Sandoval MD Monocytes/100 WBC (Bld) 7 % Normal 4-[address] [facility] Comment on above: Performed By: #### P T, PTT, BMP, CDP, TROPI #### [facility] [address] [place] [phone] Repeater Chief: Guero Sandoval MD Neutrophil (Seg) 75 % Normal 47-75 [facility] Comment on above: Performed By: #### P T, PTT, BMP, CDP, TROPI #### [facility] [address] [place] [address] Repeater Chief: Guero Sandoval MD Platelet mean volume (Bld) [Entitic vol] 10.2 fL Normal 6.0-12.0 [facility] Comment on above: Performed By: #### P T, PTT, BMP, CDP, TROPI #### [facility] [address] [place] [address] Repeater Chief: Guero Sandoval MD Platelets (Bld) [#/Vol] 275 10*3/uL Normal 140-450 [facility] Comment on above: Performed By: #### P T, PTT, BMP, CDP, TROPI #### [facility] [address] [place] [address] Repeater Chief: Guero Sandoval MD RBC (Bld) [#/Vol] 3.54 10*6/uL Low 4.00-5.20 [facility] Comment on above: Performed By: #### P T, PTT, BMP, CDP, TROPI #### [facility] [address] [place] [address] Repeater Chief: Guero Sandoval MD WBC (Bld) [#/Vol] 10.7 10*3/uL Normal 3.5-11.0 [facility] Comment on above: Performed By: #### P T, PTT, BMP, CDP, TROPI #### [facility] [address] [place] [address] Repeater Chief: Guero Sandoval MD CT CHEST PULMONARY EMBOLISM [...] Carlos Petersen MD 10/05/[address] [facility] Liver Profileon 10-05-2023 Albumin [Mass/Vol] 3.0 g/dL Low 3.5-5.2 [facility] Comment on above: Performed By: #### L IVP #### [facility] [address] [place] [address] Repeater Chief: Guero Sandoval MD Alkaline Phos 74 U/L Normal 35-104 [facility] Comment on above: Performed By: #### L IVP #### [facility] [address] [place] [address] Repeater Chief: Guero Sandoval MD ALT [Catalytic activity/Vol] U/L Low 5-33 [facility] Comment on above: Performed By: #### L IVP #### [facility] [address] [place], [place] [phone] Repeater Chief: Guero Sandoval MD AST [Catalytic activity/Vol] 9 U/L Normal <32 [facility] Comment on above: Performed By: #### L IVP #### [facility] [address] [place], [place] [phone] Repeater Chief: Guero Sandoval MD Bilirubin [Mass/Vol] 0.3 mg/dL Normal 0.3-1.2 [facility] Comment on above: Performed By: #### L IVP #### [facility] [address] [place], [place] [phone] Repeater Chief: Guero Sandoval MD Bilirubin, Indirect Can not be calculated Normal 0.0-1.0 [facility] Comment on above: Performed By: #### L IVP #### [facility] [address] [place], [place] [phone] Repeater Chief: Guero Sandoval MD Bilirubin.indirect [Mass/Vol] mg/dL Normal <0.3 [facility] Comment on above: Performed By: #### L IVP #### [facility] [address] [place], [place] [phone] Repeater Chief: Guero Sandoval MD Protein [Mass/Vol] 5.9 g/dL Low 6.4-8.3 [facility] Comment on above: Performed By: #### L IVP #### [facility] [address] [place], [place] [phone] Repeater Chief: Guero Sandoval MD PTon 10-05-2023 INR Coag (PPP) [Relative time] 1.0 {INR} Normal [facility] Comment on above: Result Comment: Therapeutic Range: Moderate Anticoagulant Intensity: INR = 2.0-3.0 High Anticoagulant Intensity: INR = 2.5-3.5 Performed By: #### P T, PTT, BMP, CDP, TROPI #### [facility] [address] [place] [address] Repeater Chief: Guero Sandoval MD PT Coag (PPP) [Time] 13.6 s Normal 11.5-14.2 [facility] Comment on above: Performed By: #### P T, PTT, BMP, CDP, TROPI #### [facility] [address] [place] [address] Repeater Chief: Guero Sandoval MD Troponinon 10-05-2023 Troponin, High Sens <6 Normal 0-14 [facility] Comment on above: Result Comment: High Sensitivity Troponin values cannot be compared with other Troponin methodologies. Performed By: #### B CARDROOM MANAGER, TROPI #### [address] [phone] Repeater Chief: Thor Hernández MD Troponin, High Sens <6 Normal 0-14 [facility] Comment on above: Result Comment: High Sensitivity Troponin values cannot be compared with other Troponin methodologies. Performed By: #### P T, PTT, BMP, CDP, TROPI #### [facility] [address] [place] [address] Repeater Chief: Guero Sandoval MD UA w/Reflex Cultureon 2023 Bilirubin, SemiQt,Ur Negative Normal NEG [facility] Comment on above: Performed By: #### U MICAO, UAX #### [employer] [address] [place] [address] Repeater Chief: Thor Hernández MD Blood, Urine Negative Normal NEG [facility] Comment on above: Performed By: #### U MICAO, UAX #### [facility] [employer] [address] [place] [address] Repeater Chief: Thor Hernández MD Clarity (U) Cloudy Abnormal CLEAR [facility] Comment on above: Performed By: #### U MICAO, UAX #### [facility] [address] [place] [address] Repeater Chief: Thor Hernández MD Color (U) Yellow Normal YEL [facility] Comment on above: Performed By: #### U MICAO, UAX #### [facility] [address] [place] [address] Repeater Chief: Thor Hernández MD Glucose Ql (U) 1+ mg/dL Abnormal NEG [facility] Comment on above: Performed By: #### U MICAO, UAX #### [facility] [employer] [address] [place] [address] Repeater Chief: Thor Hernández MD Ketones Ql (U) TRACE Abnormal NEG [facility] Comment on above: Performed By: #### U MICAO, UAX #### [address] [address] Repeater Chief: Thor Hernández MD Leukocyte esterase Test strip Ql (U) Negative Normal NEG [facility] Comment on above: Performed By: #### U MICAO, UAX #### [address] [address] Repeater Chief: Thor Hernández MD Nitrite,Ur Negative Normal NEG [facility] Comment on above: Performed By: #### U MICAO, UAX #### [address] [address] Repeater Chief: Thor Hernández MD PH,Ur 6.0 Normal 5.0-8.0 [facility] Comment on above: Performed By: #### U MICAO, UAX #### [facility] [employer] [address] [place] [address] Repeater Chief: Thor Hernández MD Protein Ql (U) TRACE Abnormal NEG [facility] Comment on above: Performed By: #### U MICAO, UAX #### [facility] [employer] [address] [place] [address] [place] [address] Repeater Chief: Thor Hernández MD Spec. Savage,Ur 1.028 Normal 1.005-1.030 [facility] Comment on above: Performed By: #### U MICAO, UAX #### [address] [address] Repeater Chief: Thor Hernández MD Urobilinogen,Ur Normal Normal 0.0-1.0 [facility] Comment on above: Performed By: #### U MICAO, UAX #### [address] [address] Repeater Chief: Thor Hernández MD Urinalysis,Microon 4 Bacteria MODERATE Abnormal NONE [facility] Comment on above: Performed By: #### U RICHYO, UAX #### [address] [address] Repeater Chief: Thor Hernández MD Casts 2 TO 5 HYALINE Normal 0-8 [facility] Comment on above: Result Comment: Refe rence range defined for non-centrifuged specimen. Performed By: #### U MICAO, UAX #### [address] [address] Repeater Chief: Thor Hernández MD Epithelial cells LM Ql (Urine sed) 20 TO 50 Normal 0-5 [facility] Comment on above: Performed By: #### U MICAO, UAX #### [facility] [employer] [address] [place] [address] Repeater Chief: Thor Hernández MD Urine RBC's 0 TO 2 Normal 0-4 [facility] Comment on above: Result Comment: Refe rence range defined for non-centrifuged specimen. Performed By: #### U MICAO, UAX #### [facility] [employer] [address] [place] [address] Repeater Chief: Thor Hernández MD Urine WBC's 5 TO 10 Normal 0-5 [facility] Comment on above: Performed By: #### U MICAO, UAX #### [address] [address] Repeater Chief: Thor Hernández MD AFP, Maternalon 07-28-2023 Determined by Ultrasound Normal [facility] Comment on above: Performed By: #### A AFPM #### [address] [address] Repeater Chief: Thor Hernández MD [address] [phone] Repeater Chief: Tim Vizcarra MD #### FT4, TSH, FT3 #### [address] [address] Repeater Chief: Thor Hernández MD Due Date SEE NOTE Normal [facility] Comment on above: Result Comment: Resu lts for Estimated Due Date: 01 06 24 Performed By: #### A AFPM #### [address] [address] Repeater Chief: Thor eHrnández MD [address] [phone] Repeater Chief: Tim Vizcarra MD #### FT4, TSH, FT3 #### [address] [address] Repeater Chief: Thor Hernández MD Family History No Normal [facility] Comment on above: Performed By: #### A AFPM #### [address] [address] Repeater Chief: Thor Hernández MD [facility] [address] [place], [place] [phone] Repeater Chief: Tim Vizcarra MD #### FT4, TSH, FT3 #### [facility] [address] [address] Repeater Chief: Thor Hernández MD Gestat Age (exact) 16 wks, 4 days [address] [facility] Comment on above: Performed By: #### A AFPM #### [address] [address] Repeater Chief: Thor Hernández MD [address] [address] Repeater Chief: Tim Vizcarra MD #### FT4, TSH, FT3 #### [address] [address] Repeater Chief: Thor Hernández MD Ins Req Matern Diab No [facility] Comment on above: Performed By: #### A AFPM #### [address] [address] Repeater Chief: Thor Hernández MD [address] [address] Repeater Chief: Tim Vizcarra MD #### FT4, TSH, FT3 #### [address] [address] Repeater Chief: Thor Hernández MD Interpretation Screen Neg Normal [facility] Comment on above: Result Comment: (NOT E) INTERPRETATION: SCREEN NEGATIVE for open spina bifida Neural Tube Defects (NTD) Negative Pre-Test Post-Test Cutoff Neural Tube Defects Risks 1:452 1:3230 1:103 Comments: The risk of an open neural tube defect is less than the twin screening cut-off. This test was developed and its performance characteristics determined by [employer]. It has not been cleared or approved by the [place] Food and Drug Administration. This test was performed in a CLIA certified laboratory and is intended for clinical purposes. Performed By: #### A AFPM #### [address] [address] Repeater Chief: Thor Hernández MD [address] [place] [address] Repeater Chief: Tim Vizcarra MD #### FT4, TSH, FT3 #### [address] [address] Repeater Chief: Thor Hernández MD [age] [facility] Comment on above: Performed By: #### A AFPM #### [facility] [address] [place] [address] Repeater Chief: Thor Hernández MD [facility] [address] [place], [place] [phone] Repeater Chief: Tim Vizcarra MD #### FT4, TSH, FT3 #### [address] [address] Repeater Chief: Thor Hernández MD Maternal Race Nonblack [facility] Comment on above: Performed By: #### A AFPM #### [address] [address] Repeater Chief: Thor Hernández MD [address] [phone] Repeater Chief: Tim Vizcarra MD #### FT4, TSH, FT3 #### [address] [address] Repeater Chief: Thor Hernández MD Maternal Weight 239.0 lbs. [facility] Comment on above: Performed By: #### A AFPM #### [facility] [address] [place] [address] Repeater Chief: Thor Hernández MD [facility] [address] [place] [address] Repeater Chief: Tim Vizcarra MD #### FT4, TSH, FT3 #### [address] [address] Repeater Chief: Thor Hernández MD MoM for AFP 1.[address] [facility] Comment on above: Performed By: #### A AFPM #### [address] [address] Repeater Chief: Thor Hernández MD [address] [address] Repeater Chief: Tim Vizcarra MD #### FT4, TSH, FT3 #### [address] [address] Repeater Chief: Thor Hernández MD Number of Fetuses Twins Normal [facility] Comment on above: Performed By: #### A AFPM #### [address] [address] Repeater Chief: Thor Hernández MD [address] [address] Repeater Chief: Tim Vizcarra MD #### FT4, TSH, FT3 #### [address] [address] Repeater Chief: Thor Hernández MD Patient's AFP 46 ng/mL Normal [facility] Comment on above: Performed By: #### A AFPM #### [address] [address] Repeater Chief: Thor Hernández MD [address] [address] Repeater Chief: Tim Vizcarra MD #### FT4, TSH, FT3 #### [address] [address] Repeater Chief: Thor Hernández MD Smoking Unknown [facility] Comment on above: Performed By: #### A AFPM #### [address] [address] Repeater Chief: Thor Hernández MD [facility] [address] [place] [address] Repeater Chief: Tim Vizcarra MD #### FT4, TSH, FT3 #### [address] [address] Repeater Chief: Thor Hernández MD Specimen See Note [facility] Comment on above: Result Comment: (NOT E) Initial sample Performed By: [facility] [employer] [address] [place] [address] Refinisher: Morro Modi MD, PhD CLIA Number: [id number] Performed By: #### A AFPM #### [address] [address] Repeater Chief: Thor Hernández MD [address] [address] Repeater Chief: Tim Vizcarra MD #### FT4, TSH, FT3 #### [address] [address] Repeater Chief: Thor Hernández MD [facility], [facility] 07-27-2023 Current Smoking INFORMATION NOT PROVIDED [facility] Comment on above: Performed By: #### A AFPM #### [address] [address] Repeater Chief: Thor Hernández MD [address] [address] Repeater Chief: Tim Vizcarra MD #### FT4, TSH, FT3 #### [address] [address] Repeater Chief: Thor Hernández MD [facility] Comment on above: Performed By: #### A AFPM #### [address] [address] Repeater Chief: Thor Hernández MD [address] [address] Repeater Chief: Tim Vizcarra MD #### FT4, TSH, FT3 #### [address] [address] Repeater Chief: Thor Hernández MD Diabetic Negative [facility] Comment on above: Performed By: #### A AFPM #### [address] [address] Repeater Chief: Thor Hernández MD [address] [phone] Repeater Chief: Tim Vizcarra MD #### FT4, TSH, FT3 #### [address] [address] Repeater Chief: Thor Hernández MD Donor Egg INFORMATION NOT PROVIDED [facility] Comment on above: Performed By: #### A AFPM #### [address] [address] Repeater Chief: Thor Hernández MD [address] [phone] Repeater Chief: Tim Vizcarra MD #### FT4, TSH, FT3 #### [address] [address] Repeater Chief: Thor Hernández MD Estimated Due Date 01/06/2024 [facility] Comment on above: Performed By: #### A AFPM #### [address] [address] Repeater Chief: Thor Hernández MD [address] [phone] Repeater Chief: Tim Vizcarra MD #### FT4, TSH, FT3 #### [address] [address] Repeater Chief: Thor Hernández MD Family History Negative [facility] Comment on above: Performed By: #### A AFPM #### [address] [address] Repeater Chief: Thor Hernández MD [address] [phone] Repeater Chief: Tim Vizcarra MD #### FT4, TSH, FT3 #### [address] [address] Repeater Chief: Thor Hernández MD In Vitro Fertalizat INFORMATION NOT PROVIDED [facility] Comment on above: Performed By: #### A AFPM #### [address] [address] Repeater Chief: Thor Hernández MD [address] [address] Repeater Chief: Tim Vizcarra MD #### FT4, TSH, FT3 #### [address] [address] Repeater Chief: Thor Hernández MD LMP date 2023 [facility] Comment on above: Performed By: #### A AFPM #### [address] [address] Repeater Chief: Thor Hernández MD [address] [phone] Repeater Chief: Tim Vizcarra MD #### FT4, TSH, FT3 #### [address] [address] Repeater Chief: Thor Hernández MD Maternal date 1990 [facility] Comment on above: Performed By: #### A AFPM #### [address] [address] Repeater Chief: Thor Hernández MD [address] [place] [address] Repeater Chief: Tim Vizcarra MD #### FT4, TSH, FT3 #### [facility] [address] [place] [address] Repeater Chief: Thor Hernández MD Maternal Weight 239 [facility] Comment on above: Performed By: #### A AFPM #### [facility] [address] [place] [address] Repeater Chief: Thor Hernández MD [facility] [address] [place] [address] Repeater Chief: Tim Vizcarra MD #### FT4, TSH, FT3 #### [address] [address] Repeater Chief: Thor Hernández MD Monochorionic Twins Positive Normal [facility] Comment on above: Performed By: #### A AFPM #### [address] [address] Repeater Chief: Thor Hernández MD [address] [address] Repeater Chief: Tim Vizcarra MD #### FT4, TSH, FT3 #### [address] [address] Repeater Chief: Thor Hernández MD Patient Weight Units LBS Normal [facility] Comment on above: Performed By: #### A AFPM #### [facility] [address] [place] [address] Repeater Chief: Thor Hernández MD [facility] [address] [place] [address] Repeater Chief: Tim Vizcarra MD #### FT4, TSH, FT3 #### [facility] [address] [place] [address] Repeater Chief: Thor Hernández MD Race (Maternal) Normal [facility] Comment on above: Performed By: #### A AFPM #### [address] [address] Repeater Chief: Thor Hernández MD [address] [address] Repeater Chief: Tim Vizcarra MD #### FT4, TSH, FT3 #### [address] [address] Repeater Chief: Thor Hernández MD Repeat Specimen INFORMATION NOT PROVIDED Normal [facility] Comment on above: Performed By: #### A AFPM #### [address] [address] Repeater Chief: Thor Hernández MD [address] [phone] Repeater Chief: Tim Vizcarra MD #### FT4, TSH, FT3 #### [address] [address] Repeater Chief: Thor Hernández MD Valproic/Carbamazep INFORMATION NOT PROVIDED [facility] Comment on above: Performed By: #### A AFPM #### [address] [address] Repeater Chief: Thor Hernández MD [address] [address] Repeater Chief: Tim Vizcarra MD #### FT4, TSH, FT3 #### [address] [address] Repeater Chief: Thor Hernández MD Thyroxine, Freeon 07-27-2023 Thyroxine, Free 1.0 ng/dL Normal 0.92-1.68 [facility] Comment on above: Performed By: #### A AFPM #### [address] [address] Repeater Chief: Thor Hernández MD [facility] [address] [place] [address] Repeater Chief: Tim Vizcarra MD #### FT4, TSH, FT3 #### [address] [address] Repeater Chief: Thor Hernández MD Protein,Tot,[place] Uron 5 Creatinine [Mass/Vol] 273.0 mg/dL High 28.0-217.[address] [facility] Comment on above: Performed By: #### U RTPRT #### [address] [address] Repeater Chief: Thor Hernández MD Tot Prot. Conc. 21 mg/dL Normal [facility] Comment on above: Result Comment: No n ormal range established. Performed By: #### U RTPRT #### [address] [address] Repeater Chief: Thor Hernández MD TP/Cre Ratio 0.[address] [facility] Comment on above: Performed By: #### U RTPRT #### [address] [address] Repeater Chief: Thor Hernández MD T3, Freeon 3 Free T3 [Mass/Vol] 3.40 pg/mL Normal 2.00-4.40 [facility] Comment on above: Performed By: #### A AFPM #### [address] [address] Repeater Chief: Thor Hernández MD [facility] [address] [place] [address] Repeater Chief: Tim Vizcarra MD #### FT4, TSH, FT3 #### [address] [address] Repeater Chief: Thor Hernández MD Thyroid Stim. Horm.on 2023 Thyroid Stim. Horm. <0.01 Low 0.27-4.20 [facility] Comment on above: Performed By: #### A AFPM #### [facility] [address] [place] [address] Repeater Chief: Thor Hernández MD [address] [address] Repeater Chief: Tim Vizcarra MD #### FT4, TSH, FT3 #### [facility] [address] [place] [address] Repeater Chief: Thor Hernández MD ED Note-Physicianon 05-14-19 24 ED Note-Physician [...] see dentistry until she is cleared by [facility]. She does not have an appointment for [facility] to next week. She has no OB [...] day(s), # 15 tab(s), Refills(s) 0, Pharmacy: [facility], 160, cm, 05/13/23 11:33:00 EST, Height/Length [...] Oral, q6hr Follow-up With When Contact Information [facility] In 3 days 05/16/2023 EDT [address] [place], [place] [address] (1) Additional Instructions: Dentistry follow-up Patient [...] made to ensure accuracy, however, inadvertently computerized dye automation operator mistakes may be present. Appropriate healthcare PPE was used in evaluating this patient. Problem List/Past Medical History Ongoing Acute hepatitis C Anxiety Apnea, sleep Dental caries PCOS (polycystic ovarian syndrome) Historical No qualifying data Procedure/Surgical History Delivery. Medications Inpatient ampicillin-sulbacta m additive + Sodium Chloride 0.9% intravenous solution 100 (more content not included)... Normal [facility] Comment on above: Result Comment: Elec tronically Signed By: Greg Stratton PA-C\.br\Date and Time Signed: 05/13/23 12:45 EST\.br\Electronically Co-Signed By: Jonathan Martinez DO\.br\Date and Time Co-Signed: 05/14/23 07:40 EST Consent for Treatmenton Consent for Treatment [id number] EC#1.00TIFF [facility] Discharge Instructionson Discharge Instructions [id number] 53#1.00TIFF Normal [facility] ED Clinical Summaryon 2023 ED Clinical Summary [address] [address] ED Clinical Summary Person Information Name: TIA MONROE Maria Elena/[facility] Age: 33 Years : 1990 Sex: Female Language: Brazilian PCP: Linda Sheppard DO Marital Status: Visit [...] 05/13/2023 13:02:19 05/13/2023 13:02:19 05/13/2023 13:02:19 ADDRESS: [address] [place] [id number] PHYS DOC NOTES: MEDICAL INFORMATION: Prescriptions Given: New Medications [facility], [address] [place], [place] [id number], [phone] oxycodone (oxyCODONE 5 mg Tab) 1 Tablets [...] Dental Abscess Follow up: With: Address: When: [place] [phone] Business (1) In 3 days 05/16/2023 Comments: Dentistry follow-up DIAGNOSIS: Dental abscess Normal [facility] ED Patient Education Noteon 05-13-2023 [...] these instructions at home: Medicines ? Take iddd-cpo-wmzvnkm and prescription medicines only as told by [...] ? (more content not included)... Normal [facility] ED Patient Summaryon 024 ED Patient Summary [address] [address] Patient Discharge Instructions Person Information Name: TIA MONROE Age: 33 Years Arrival Date: 05/13/2023 11:19:01 Discharge Diagnosis: Dental abscess Primary Care Physician: Linda Sheppard DO Provider Information Primary Provider: Jonathan Martinez DO Advanced Chief Operations Officer:Greg Stratton PA-C The exam and treatment you received in the Emergency Department were for an urgent problem and are not intended as complete care. It is important that you follow up with a doctor, nurse practitioner, or physician?s sales operations assistant for ongoing care. If your symptoms become worse or you do not improve as expected and you are unable to reach your usual health care provider, you should return to the Emergency Department. We are available 24 hours a day. TIA MONROE has been given the following list of patient education materials, prescriptions and follow-up instructions: Follow-up Instructions: With: Address: When: [employer] [address] [address] Business (1) In 3 days 05/16/2023 Comments: Dentistry follow-up In the event that this physician does not participate in your insurance network, please consult with your insurance company to find a nearby participating provider. Patient Education Materials: Dental Abscess A MESSAGE TO ALL PATIENTS REGARDING OPIOIDS PRESCRIPTION OPIOIDS: WHAT YOU NEED TO KNOW Prescription opioids can be used to help relieve pmzpzvhf-pm-hwsfyj pain and are often prescribed following a [...] be struggling with addiction, tell your health in home caregiver and ask for guidance or call [facility]S National Helpline at 2-489-0 (more content not included)... Normal [facility] Discharge Instructionson Discharge Instructions [id number]#1.00TIFF Normal [facility] ED Clinical Summaryon 2023 ED Clinical Summary [place] [id number] ED Clinical Summary Person Information Name: TIA MONROE Maria Elena/[facility] Age: 33 Years : 1990 Sex: Female Language: Brazilian PCP: Linda Sheppard DO Marital Status: Visit [...] 23:59:00 05/11/2023 23:59:00 05/11/2023 23:59:00 AD[address]ESS: [address] [facility] [phone] PHYS DOC NOTES: MEDICAL INFORMATION: Prescriptions Given: New Medications [facility], [address], [place] [id number], [phone] amoxicillin-clavula cindi (Augmentin 875 mg oral tablet) [...] Medication PATIENT EDUCATION INFORMATION: Instructions: Dental Pain, Bhhm-ud-Nlhm Follow up: With: Address: When: Linda Sheppard DO [address], [address], [address] [place], [place] [id number] In 3 days 05/14/2023 DIAGNOSIS: 1:Pain, dental; 2:Infected dental caries; 3:First trimester ; Periapical abscess without sinus Normal [facility] ED Note-Physicianon 05-12-19 ED Note-Physician Basic Information Time Seen: Violet Walters PA-C 05/11/2023 22:59 Chief Complaint pt arrives for c/o dental pain on the right upper side. states cannot see her denitist d/t being . pt states seen [facility] and started on amoxcillin. History of Present Illness Patient is a 7-week 33-year-old female with history of PCOS that presents to the ED with her for evaluation of dental pain. Patient says pain started on Tuesday. She localizes it to the right upper jaw, radiates into her face ear and cheek. She went to [place] [facility] yesterday and was initiated on amoxicillin [...] day(s), # 14 tab(s), Refills(s) 0, Pharmacy: [facility] #16, 160, cm, 05/11/23 21:53:00 EST, Height/Length Dosing, 110, kg, 05/11/23 21:53:00 EST, Weight Dosing chlorhexidine topical, 0.018 gm, 15 mL, Oral, BID, 480 mL, Refill(s) 0, (swish and spit; do not swallow), [facility] #[facility], 160, cm, 05/11/23 21:53:00 EST, Height/Length Dosing, 110, kg, 05/11/23 21:53:00 EST, Weight Dosing (more content not included)... Normal [facility] Comment on above: Result Comment: [...] these instructions at home: Medicines ? Take poot-fha-xwedaod and prescription medicines only as told by [...] to the area. Brushing your teeth ? [place] your teeth twice a day using a [...] when you eat or drink. ? Take rqdl-kym-pwdfhue and prescription medicines only as told by [...] Reviewed: 11/26/2020 Elsevier Patient Education ? 2022 [employer] Normal [facility] ED Patient Summaryon 024 ED Patient Summary [address] [address] Patient Discharge Instructions Person Information Name: TIA MONROE Age: 33 Years Arrival Date: 05/11/2023 21:25:54 Discharge Diagnosis: 1:Pain, dental; 2:Infected dental caries; 3:First trimester ; Periapical abscess without sinus Primary Care Physician: Linda Sheppard DO Provider Information Primary Provider: Zac Fields M.D. Advanced Chief Operations Officer:Violet Walters PA-C The exam and treatment you received in the Emergency Department were for an urgent problem and are not intended as complete care. It is important that you follow up with a doctor, nurse practitioner, or physician?s sales operations assistant for ongoing care. If your symptoms [...] Instructions: With: Address: When: Linda Sheppard DO [address] [place] [address] [address] , [facility] [address] [place] [address] In 3 days 05/14/2023 In the event that this physician does not participate in your insurance network, please consult with your insurance company to find a nearby participating provider. Patient Education Materials: Dental Pain, Smra-my-Nqjd A MESSAGE TO ALL PATIENTS REGARDING OPIOIDS PRESCRIPTION OPIOIDS: WHAT YOU NEED TO KNOW Prescription opioids can be used to help relieve fuljzhzc-wz-ixwcux pain and are often prescribed following a [...] be struggling with addiction, tell your health in home caregiver an (more content not included)... [facility] Consent for Treatmenton Consent for Treatment [id number] 96#1.00TIFF [facility] Progesteroneon 12-28-2022 Progesterone 12.60 ng/mL [facility] Comment on above: Result Comment: Female: Follicular phase <0.19 ng/mL Ovulation phase 0.06-4.14 ng/mL Luteal phase 4.11-14.5 ng/mL Postmenopausal <0.13 ng/mL Performed By: #### P NICKY #### [facility] [address] [place] [address] Repeater Chief: Thor Hernández MD Progesteroneon 11-24-2022 Progesterone 7.18 ng/mL High 0.0-0.15 [facility] Comment on above: Result Comment: Female: Follicular phase <0.19 ng/mL Ovulation phase 0.06-4.14 ng/mL Luteal phase 4.11-14.5 ng/mL Postmenopausal <0.13 ng/mL Performed By: #### P NICKY #### [employer] [facility] [address] [place] [address] Repeater Chief: Thor Hernández MD , Urineon 3 HCG ( test) Ql (U) Negative NEGATIVE [facility] ANKLE RIGHT (MIN 3 VIEWS) on 09-04-2022 FINDINGS/IMPRESSION : No acute displaced fracture identified. Ankle mortise is symmetric. There is a 1 mm tiny calcified body which is remote appearing near the distal fibular tip. Minimal ankle soft tissue edema. [facility] EXAM: XR ANKLE RIGHT (MIN 3 VIEWS) INDICATION: Reason for exam:->swelling COMPARISON: None. TECHNIQUE: Radiographs as described above [facility] Bettye Johnson MD - 09/04/2022 EXAM: XR ANKLE RIGHT (MIN 3 VIEWS) INDICATION: Reason for exam:->swelling COMPARISON: None. TECHNIQUE: Radiographs as described above IMPRESSION: FINDINGS/IMPRESSION : No acute displaced fracture identified. Ankle mortise is symmetric. There is a 1 mm tiny calcified body which is remote appearing near the distal fibular tip. Minimal ankle soft tissue edema. [facility] Radiology Study observation (narrative) [facility] XR ANKLE RIGHT (MIN 3 VIEWS) Ordered By: Bettye Johnson on 09-04-2022 [facility] Work Phone: Coding Summary.on 07-09-2022 Coding Summary. CD:[id number] bWw+PGhlYWQ+QN2RIRW uC28qbVWnrJ1dR6TATP lOSywgQVBQTElOSyIgb cNnNZ4auCLkSSUi IC8+GQ6tUWSuQwbovYE aq8D6gIX9E00kyj3bQT wnnVM0KUSaDuBieojvx 9jthHq6JErmZyyqDuQb GVLeuM51BJP9dP10Rf8 0wHZliVMfd3cbkEj7Rw WpPJCyWXH6kXptOOrvc 3BdIHIkR18qgGGbr1W0 IGNvbGxhcHNlOyBlbXB 7aZ5yPTpqkjjsp6kcqz oqHcu0mi85kRJwg7E6r YY0L4NawlD1BPZywEPo BqpafQYIzL1wesiap6o zvxkjPoYaYEDdRZq9HW i5EFXooLgbZgIuYZ70Q FV6CJEibtAnK8TaSIEx eIvvPnS2z6L8Sd9UY5Z DEkxtP1VCWQDGBDmwoA Q+MJ16mo40O0ZpGyvyE on6INVvEPD0dDN1dL6r UNLbXUhhm9E8nHP9N4F ghqXxqn8qq2ttCZVuPG juQ38kqUTpk5S6SSJfv IC2DTPegRltWrYwsD87 Oyc+MAWwnLpwf8GfSat bi8ces9uiqFg1QqyuRI FwbaZejRwgJYF3s2BaL q5vXOFpnYE3dHO2pJ1x WbZiHlT3LFdvJ081MnS nyZGvKozjL01jF3RyzZ A+AZFfUtf0TZAxjFkqJ Z3sZ0IkQKFsldtxbXYd tBlvYQ0zRNLeotrdIPL oxF7aJYRwS1o6FzEkCf K1DMbiD1KvNWEfcxcxO c32dH3aDdGbYsG1QUky L7RyxsY3AJMfaFIvBMi hURF7C76ts0X7RPYpMD YlVDC2mQM0iQ5dlZrta jogbGVmdDsgdmVydGlj YZqxZKmbD756BBNcbTf nPkNvZGluZyBEYXRlOi AgMDUvMDUvMjAyMzwvd GQ+NKYfGVF6gPrjGGFc fODoQDofEi9ybIdakHc lLS1dPUGvpnxoXSGruT 9eWJMokERejDuxKL4bQ WEmtiuen720FgYzIAA1 VURqiWPnR9GtwT7vOhT mKBLsMFXuD4GyqTHhIO ioG639QAhtCmY9TUWie kBbU3EfZWPshNkpDnW2 x9C3Vy7Vt9HcdibeW4N viPXwIqTeDqajICd8O5 RkPjwvdHI+YR82ZIOeG A75PBl3OSC5hRhySWyt HGHeB1VirJ6bHxVgCAP kZGRkOyc+PHRhYmxlIH dpZHRoPScxMDAlJyBzd AzcRR0lSp7jESOvARYm mMomwDPpCtHwh4vsOEV gRIuuJJ6jqRkyF5KyzU G4QBQtr2r4Ec05L38nN 3JvdXA+KZFqkZZ4aUQ0 iL3iIlYgMkA9DYwkP76 2ArRqwHJoInuav2mdd9 hfaBm9DgG4CJQdgfAox IaeECE1x5CaAq56W73e IHdpZHRoPSIxNSUiIHZ hxBhcuc5zyH2bJv2+PG SplOB7xQK3bI7jRgHoN sI8VFgzZ955OlTzbIZq Sunbt0myq3bwuDt5DnH hBOQtemDwcIfqBAJ6p4 UeZa17Y4HgfRvjv5RoR la4td43eJCds2R2rFP8 C9BhHKUnjwggmZPudJd oUV0xOEPkxpkeIAMaeB 6ePUKuF1q8ZcIsChC9F YreV6BsmuA1YHDuwEYd FSGrqKTCoW4zjbtrv3w uhungPmSqDDWmDVv8FL c1ZLUrqBtdByAdYWP4U jV0HXS0sKNknI2mzUae alwqhW3qSyk+AJA9rMT yyRKHZB6wMjnqiXC+PH IbCTI0aBubXKyiNFStb G1bLEXzU7r8GoXnEkX0 JZluQ1IpdwU2DJTlkMG yZQAipDRMyK6owzxah6 jnesxjUdWzEMMdFCj3N Zu2ZCOxbTzzQaAlCTE4 PyQ2FHO5dVJseR1rwLk tpkvvjA5cKyz+QmlydG ofBWT8NFk4B2MkCrg6K LQcsPttQX0twVYoYNaj Qw4dgFaqxCldDN2dKPK llkzii536UxYxh9xcNW OpdUZcQLlmVDF6S97le 6C5NIDfKYYySOQ7lOD8 oM1fwZttpnshlMBqbYa gdmVydGljYWwtYWxpZ2 84UIMsnEvtJdPqBFc2J 9JhYtt9ZTAhxJbjRZ1j oWKuWBqwOz8xiScyzUs zUY5rTMSkbasul633Jn Pic6gfXEMbtXUjLJvzJ LZ7E16ff8I9GGTuQGYk TBJ9aKJ6wX8kgZfrfjx gbGVmdDsgdmVydGljYW xpUAttN312TLTvtFjqU nEbeRa3D8DwQfa8IKLj vBpqXN3ulZQuMCljIi7 pkEfekQdiYG9hEQUcne wfq698ZiJof5khJAEpe OSxAZkgXHO1Q88mo0F2 ZMQvCWYeXIQ0hJL9rL5 hbGlnbjogbGVmdDsgdm UrqVotHFliZFnsS701L HRvcDsnPlBhdGllbnQg UQayJYe4A7UfHfwliPU +DW42EKSmJO04zFLbhY Ywj2tchFx8PsSwEDHfI SC4gQdsENpau2OrZAXc J60wqZLyy7A6BPFzpYw oxGCfHqKjyFP8wA4kGV chwujmn9basgkfLwadb 5iurw62vF11U97rNRcl ZHRoPSIzMCUiIHZhbGl ucs6bwH1oMh8+PGNvbC O2nIV7xS4kUBOmNjZ4Z OkrK109YfPpxIYfPzmz j8twx7wmnKv8LvG8HAC ecmYbaVbrDHX6b6MkJw 58R48lGRitKJGcDSDgS YXsOAQksXvnxx8ziO4d Ii8+SVMqtND4aWD6zO0 lSoEfDqZ3AShiY003Vi QicNWqZlcwE10sI7Vfi XA+WLCsQiu6USDvjEcm AO4hvFQkYXdwVj9bVDE 9ByGiPbNrXFyzL8QoFP WlhsocolyzaLE3XORqA UNjpB33Pb0npDlcGOTc wYSOhF3xgtqva9kbhjo iDfOdNSLsRVx5TLw6IC JukGisJfFjJDJ8BqB5Z IE2eEUsiY2luEvdypwd iB2fZ1MxGQBfdiftNx1 8bB4lXeOaMxN6QAnmXb c+Hk5UIpSPHmkxRgWVV kRJRTwvdGQ+PHRkIHN0 xEruYJdzORGhrT0fGOU pF7a8BzSnJrO9ZEytG7 TjDSQooxekJe46iC0mC pMaXbA9SJmgX3XqkoO8 SRSshGMnNWaoNLH0L06 hx5H8SGOpQJHwLFP6eB U8xV1mwOmyiffluQKqc DsgdmVydGljYWwtYWxp L592PUZqaKqyFsUiSbL 2OlP1TKY3V3LuVgf0MG IxtHozOK5dbHWqIKeeA s2ixZfvwWmkUO5sDIGx ndcjRRUpwO5wQNIxhQN tcKhdXE4cUATvrvwzz2 28IiKaKLC7TMFrkGSdN 0CgxQ8vHwIoDFSgDPGo Q8RlpCBxDZnwY275PYe cBtT7WGWldcKjC7NmOW TnrRtnCfF9b7M3Pd1eK iBZZWFyczwvdGQ+PHRk EHX9xGdrUQjpEHXrpX8 iMLXhA0j7ElJyXmM4DG awP7CzNMOjnnfoAq71e J5zUcOiZyV5ZWrcF3Td vzE4YNKiaDDiZStrQVB 7Z35of6E5REGpNRNmLB V0zMP8iI4owXxwgxdrj GVmdDsgdmVydGljYWwt TPyaC724ZXIugJlyMcR lbWFsZTwvdGQ+PHRkIH I2bLzlDGaxZORbvZ9gY SAjU9l2OxJvXhH1XMuz B3DqZEDpbefkJv36bK0 kHiTcWzQ2BOfgE9Gscz A2OSFufJUbLLrxPRL3B 97rz1X2TPVsTEEiNCC0 kGV9lB1bcEnxaapflNL mdDsgdmVydGljYWwtYW jsP859PKOptCgoKcVac D9aAFGbSEixkFEtxFxk dGQ+RW60pg19C1IiFnv iOgz5LCQnFFI4dBX6tJ 7wLZFhLCqma1V6vJB6T 1JjqsFaey7wr7sbTJVq EObvO57dkTUzw6Z5GKE faAK7HCKfkRpnLqQprU 93Oyc+JHCssGuiz9PbL fpzb4mif3dfrEe3NgHq LYDrmpCzzWuyMPH0w4R qVg73U11hEVsiXXWdKA PpLMUlFAFxmTlrim7zh G9wIi8+FUZrdMH4lCZ8 vZ2vBbTxBgJ1BMgaF23 0UmGprJTqUbvop0src9 cmcPu1YfNdHYYzreQgo FsyHJZ4k3YeMa20R4Br rBxjp2ZiDjl0ml30iKO pk1J0sEJ4L1OoZXLeki yqpGXnxDezVO5vHAZis wlrKETjsI2aGLTsW2f8 SfNnRiW7GAttR3FqcwM 6IGJvbGQgMTBwdCBUaW 0rfzlxw6kyoftlLaTyB XLaVLo1KQd3NJZiqEad YmUuIAG7MjR5COM6mRF wdU3mfMqkmaftbA2vJu c+ASw3b9mpuEEnOL2fo WI9RD20BU29vZFeg3A0 qCX8P0FfAHLsmzxeygp wyYV3BDMuNEKsrB03Vb 8hgQvsLt4dAHIkDHS6Y VEplDTgA9JcpT4xTwMq OTLnCDOdC5HeeDBsCKk dC649SUhaIgP2GPYbsl ZkR7ByUYDnvLehCmP7u 5B9Zs1OYK62MU05VO27 sIWht7C0hPQ7U5MjCHU qltisfbtduDV0CEXsFO OotD09Ay3kdBnvAn5eD TOqFYE9IZKhoLIvV6Mp hT5kUzAyTGXrYZJkG3O phLYkLBkdP180PCryNw B7HOVrmlJzL9ToYDJqv CdzSyU2p9R5Uu3GZn16 MT26IF33eOUet0F9zQO 5S8DuTKQmqlvwwallaQ E2TYWvFBWqxD13Ym0td TuoZp6uTLAyJCB3JXIj yHIlA0TsoQ9tAjSyCGD tGKYlG7JszSKbXRnhA2 36XVxeRiM5PXOxkhLzQ 3PdAHDuaRwbKlS7n6O2 Yq7BOYwbmdp8E8GpDvh vdHI+WY98FMVnKX54jW StpZQri9huuFl4HfImN VNbZZH9aQldHHuci5Qj BDHsI72z (more content not included)... Normal [facility] Consultation Noteon 07-07-19 Consultation Note [...] Problems Acute hepatitis C / SNOMED CT 221942812 / Confirmed Anxiety / SNOMED CT 81427225 / Confirmed Apnea, sleep / SNOMED CT 439029683 / Confirmed Dental caries / SNOMED CT 732928368 / Confirmed PCOS (polycystic ovarian syndrome) / SNOMED CT 454447265 / Confirmed Histories Past Medical History: Active Dental caries ([id number]) Family History: No family history items have [...] agrees with plan of care. Normal [facility] Comment on above: Result Comment: Elec tronically Signed By: Bing PEDRAZA, Todd Lilly\.franchesca\Date and Time Signed: 07/06/22 13:28 EDT DHEA SERUMon 07-04-2022 Dehydroepiandrosterone (DHEA) 220 ng/dL Normal 31-701 [facility] Comment on above: Performed By: #### Vijaya OMER. ####[facility] [address] [place], [place] [address]VoSelwyn Sanchez DHEA-SULFATEon 06-30-2022 DHEA-Sulfate 106.0 ug/dL Normal 84.8-378.0 [facility] Comment on above: Performed By: #### Vijaya TATUM ####[facility] [id number] [place] [address]Dr. Nito Sanchez FSHon 06-30-2022 FSH 6.6 mIU/mL Normal [facility] Comment on above: Result Comment: Adul t Female: Follicular phase 3.5 - 12.5 Ovulation phase 4.7 - 21.5 Luteal phase 1.7 - 7.7 Postmenopausal 25.8 - 134.8 Performed By: #### L BCFS #### [facility] [address] [place] [address] Dr. Nito Sanchez LUTEINIZING HORMONE (LH)on 0 06-30-2022 LH 18.9 mIU/mL Normal [facility] Comment on above: Result Comment: Adul t Female: Follicular phase 2.4 - 12.6 Ovulation phase 14.0 - 95.6 Luteal phase 1.0 - 11.4 Postmenopausal 7.7 - 58.5 Performed By: #### L BCLH #### [facility] [address] [place] [address] Dr. Nito Sanchez PROLACTINon 06-30-2022 Prolactin 5.3 ng/mL Normal 4.8-23.3 [facility] Comment on above: Performed By: #### P ROLAC #### [facility] [address] [place] [address] Dr. Nito Sanchez CBC AUTO DIFFon 06-29-2022 BASO # 0.1 103/ul Normal 0.0-0.1 [facility] Comment on above: Performed By: #### C BC #### [facility] [address] [place] [address] Dr. Nito Sanchez Basophils/100 WBC (Bld) 0.5 % Normal 0.2-2.0 [facility] Comment on above: Performed By: #### C BC #### [facility] [address] [place] [address] Dr. Nito Sanchez EO # 0.2 103/ul Normal 0.0-0.7 [facility] Comment on above: Performed By: #### C BC #### [facility] [address] [place] [address] Dr. Nito Sanchez Eosinophils/100 WBC (Bld) 1.6 % Normal 0.9-7.0 [facility] Comment on above: Performed By: #### C BC #### [facility] [address] [place] [address] Dr. Nito Sanchez Erythrocyte distribution width (RBC) [Ratio] 13.6 % Normal 11.0-15.0 [facility] Comment on above: Performed By: #### C BC #### [facility] [address] [place] [address] Dr. Nito Sanchez Hematocrit (Bld) [Volume fraction] 39.7 % Normal 36.0-48.0 [facility] Comment on above: Performed By: #### C BC #### [facility] [address] [place] [address] Dr. Nito Sanchez Hemoglobin (Bld) [Mass/Vol] 13.1 g/dL Normal 12.0-16.0 [facility] Comment on above: Performed By: #### C BC #### [facility] [address] [place] [address] Dr. Nito Sanchez IG # 0.05 10e3/ul Critically high 0.00-0.03 [facility] Comment on above: Performed By: #### C BC #### [facility] [address] [place] [address] Dr. Nito Sanchez IG % 0.5 % Normal 0.0-0.5 [facility] Comment on above: Performed By: #### C BC #### [facility] [address] [place] [address] Dr. Nito Sanchez LYMPH # 2.6 103/ul Normal 1.2-3.8 [facility] Comment on above: Performed By: #### C BC #### [facility] [address] [place] [address] Dr. Nito Sanchez Lymphocytes/100 WBC (Bld) 25.3 % Normal 20.5-60.0 [facility] Comment on above: Performed By: #### C BC #### [facility] [address] [place] [address] Dr. Nito Sanchez MANUAL DIFF REQ NO Normal [facility] Comment on above: Performed By: #### C BC #### [facility] [address] [place] [address] Dr. Nito Sanchez MCH (RBC) [Entitic mass] 27.1 pg Normal 26.7-34.0 [facility] Comment on above: Performed By: #### C BC #### [facility] [address] [place] [address] Dr. Nito Sanchez MCHC (RBC) [Mass/Vol] 33.0 g/dL Normal 29.9-35.2 [facility] Comment on above: Performed By: #### C BC #### [facility] [address] [place] [address] Dr. Nito Sanchez MCV (RBC) [Entitic vol] 82.2 fL Normal 81.0-99.0 [facility] Comment on above: Performed By: #### C BC #### [facility] [address] [place] [address] Dr. Nito Sanchez MONO # 0.5 103/ul Normal 0.3-0.8 [facility] Comment on above: Performed By: #### C BC #### [facility] [address] [place] [address] Dr. Nito Sanchez Monocytes/100 WBC (Bld) 5.0 % Normal 1.7-12.0 [facility] Comment on above: Performed By: #### C BC #### [facility] [address] [place] [address] Dr. Nito Sanchez NEUT # 6.9 103/ul Critically high 1.4-6.5 [facility] Comment on above: Performed By: #### C BC #### [facility] [address] [place] [address] Dr. Nito Sanchez Neutrophils/100 WBC (Bld) 67.1 % Normal 43.0-75.0 [facility] Comment on above: Performed By: #### C BC #### [facility] [address] [place] [address] Dr. Nito Sanchez Platelet mean volume (Bld) [Entitic vol] 10.0 fL Normal 9.5-13.5 [facility] Comment on above: Performed By: #### C BC #### [facility] [address] [place] [address] Dr. Nito Sanchez PLT 313 103/ul Normal 150-450 [facility] Comment on above: Performed By: #### C BC #### [facility] [address] [place] [address] Dr. Nito Sanchez RBC 4.83 106/ul Normal 4.20-5.40 [facility] Comment on above: Performed By: #### C BC #### [facility] [address] [place] [address] Dr. Nito Sanchez WBC 10.3 103/ul Normal 4.0-11.0 [facility] Comment on above: Performed By: #### C BC #### [facility] [address] [place] [address] Dr. Nito Sanchez Consent for Treatmenton 06-06 Consent for Treatment [id number] 650#1.00CD:127 Normal [facility] FREE T4on 06-29-2022 Free T4 [Mass/Vol] 1.01 ng/dL Normal 0.76-1.46 [facility] Comment on above: Performed By: #### F T4 #### [facility] [address] [place] [address] Dr. Nito Sanchez GLYCOHEMOGLOBIN A1Con 2022 ADA RECOMMENDATION SEE BELOW Normal [facility] Comment on above: Result Comment: ADA RECOMMENDED LIMIT 4.0 - 6.0 ADA THERAPEUTIC TARGET < 7.0 ACTION SUGGESTED > 7.0 Performed By: #### A 1C #### [facility] [address] [place] [address] Dr. Nito Sanchez Glucose [Mass/Vol] 108 mg/dL Normal [facility] Comment on above: Performed By: #### A 1C #### [facility] [address] [place] [address] Dr. Nito Sanchez HbA1c (Bld) [Mass fraction] 5.4 % Normal 4.5-6.2 [facility] Comment on above: Performed By: #### A 1C #### [facility] [address] [place] [address] Dr. Nito Sanchez HIPAA Forms Officeon 023 HIPAA Forms Office [id number] 602#1.00CD:127 Normal [facility] Legal Correspondence Officeo n 06-29-2022 Legal Correspondence Office [id number] 270#1.00CD:127 Normal [facility] Legal Correspondence Office [id number] 787#1.00CD:127 Normal [facility] Office/Clinic Note-Physician on 06-29-2022 Office/Clinic Note-Physician [id number] 515#1.00CD:127 Normal [facility] Orders Officeon 06-29-2022 Orders Office [id number] 642#1.00CD:127 Normal [facility] PREG QUANT HCGon 06-29-2022 HCG QUANT 1 mIU/mL Normal [facility] Comment on above: Performed By: #### T SH, PREGQNT #### [facility] [address] [place] [address] Dr. Nito Sanchez HCG RANGE SEE BELOW Normal [facility] Comment on above: Result Comment: 5-50 0.2-1 WEEK 50-500 1-2 WEEKS 100-5,000 2-3 WEEKS 500-10,000 3-4 WEEKS 1,000-50,000 4-5 WEEKS 10,000-100,000 5-6 WEEKS 15,000-200,000 6-8 WEEKS 10,000-100,000 2-3 MONTHS Performed By: #### T SH, PREGQNT #### [facility] [address] [place] [address] Dr. Nito Sanchez Patient Correspondenceon Patient Correspondence [id number] 946#1.00CD:127 Normal [facility] Patient Correspondence [id number] 137#1.00CD:127 Normal [facility] Patient Correspondence [id number] 273#1.00CD:127 Normal [facility] Patient Correspondence [id number] 879#1.00CD:127 Normal [facility] Patient Correspondence [id number] 956#1.00CD:127 Normal [facility] Patient History Officeon Patient History Office [id number] 983#1.00CD:127 Normal [facility] Patient History Office [id number] 721#1.00CD:127 Normal [facility] Radiology Outside Office Passenger Service Manager yon 06-29-2022 Radiology Outside Office Copy [id number] 142#1.00CD:127 Normal [facility] TSHon 06-29-2022 TSH 0.848 uIU/mL Normal 0.358-3.740 [facility] Comment on above: Performed By: #### T , PREGQNT #### [facility] [address] [place] [address] Dr. Nito Sanchez US PELVIS AND TRANSVAGon [...] by: BETTYE MIYALATA Date: 2022-06-29 15:17 Normal [facility] PAP ACOG PANEL 2: 30 to 65on 06-19-2022 . . Normal [facility] Comment on above: Result Comment: Perf ormed at: WB Performed By: #### [id number] #### [facility] [address] [address] [address] Nito Sanchez Age Gdln ACOG Testing - Normal [facility] Comment on above: Performed By: #### 4 [id number] #### [facility] [address] [address] [address] Nito Sanchez DIAGNOSIS: Comment Normal [facility] Comment on above: Result Comment: NEGA TIVE FOR INTRAEPITHELIAL LESION OR MALIGNANCY. Performed at: WB Performed By: #### 4 [id number] #### [facility] [address] [address] [address] Nito Sanchez HPV Aptima Negative Normal Negative [facility] Comment on above: Result Comment: This nucleic acid amplification test detects fourteen high-risk HPV types (16,18,31,33,35,39,45,51,52,56,58,59,66,68) without differentiation. Performed at: =G Performed By: #### 4 [id number] #### [facility] [address] [address] [address] Nito Sanchze HPV Genotype Reflex Comment Normal [facility] Comment on above: Result Comment: Crit eria not met, HPV Genotype not performed. Performed at: WB Performed By: #### 4 [id number] #### [facility] [address] [address] [address] Nito Sanchez Methodology: Comment Normal [facility] Comment on above: Result Comment: This liquid based ThinPrep(R) pap test was screened with the use of an image guided system. Performed at: WB Performed By: #### 4 [id number] #### [facility] [address] [place] [address] Dr. Nito Sanchez Note: Comment Normal [facility] Comment on above: Result [...] Performed at: WB Performed By: #### 4 [id number] #### [facility] [address] [address] [address] Nito Sanchez Performed by: Comment Normal [facility] Comment on above: Result Comment: Nanda Treadwell, Book Canvasser (ASCP) Performed at: WB Performed By: #### [id number] #### [facility] [address] [place] [address] Dr. Nito Sanchez Specimen adequacy: Comment Normal [facility] Comment on above: Result Comment: Sati sfactory for evaluation. Endocervical and/or squamous metaplastic cells (endocervical component) are present. Performed at: WB Performed By: #### [id number] #### [facility] [address] [place] [address] MAXILLOFACIAL WO CONTRAST on 05-11-2022 Recent extraction of the right mandibular and maxillary second molar teeth with presence of air in the respective tooth sockets. No evidence of edema in the sublingual space or the buccal space Probable periapical abscess involving the right maxillary premolar tooth adjacent to the first molar tooth. [facility] RIS CONSOLIDATED EXAM: CT MAXILLOFACIAL [...] visualized intracranial contents show no acute process. [facility] Phil Romero MD - 05/11/2022 [...] tooth adjacent to the first molar tooth. [employer] Work Phone: Radiology Study observation (narrative) [employer] Work Phone: CT MAXILLOFACIAL WO CONTRAST Ordered By: Phil Mary on 05-11-2022 [employer] Work Phone: Urine Preg (Lab)on 3 Beta HCG ( test) Ql (U) Negative NEGATIVE [facility] HCG, Quantitative, on 03-29-2022 hCG Quant NINF [employer] Comment on above: Non-preg premeno <=5 Postmeno <=8 Male <=3 If HCG results do not concur with clinical observations, additional testing to confirm results is recommended. [employer] COVID-19, Rapidon 07-22-2021 SARS-CoV-2 (COVID-19) RNA KALPESH+probe Ql (Unsp spec) Not detected Not Detected [facility] Comment on above: Rapid NAAT: The [...] management decisions. Fact sheet for Healthcare Providers: https://www.fda.gov/media/383071/download Fact sheet for Patients: https://www.fda.gov/media/678166/download Methodology: Isothermal Nucleic Acid Amplification Specimen Description .NASOPHARYNGEAL SWAB [facility] Strep Screen Group A Throato n 07-22-2021 S. pyogenes Ag Ql (Throat) Negative NEGATIVE [facility] Comment on above: Rapid Strep A negati ve. A negative Rapid Group A Strep Screen result does not rule out the possibility of Group A Streptococci in the specimen. A Group A Strep DNA test is available upon request. Source .THROAT SWAB [facility] MR LUMBAR SPINE WITHOUT CONT [facility] [[email or web address]] 06-17-2021 MR LUMBAR SPINE WITHOUT CONTRAST EXAMINATION: [...] foraminal stenosis. 2. No fracture or spondylolisthesis. [facility] Workstation ID: [id number] Dictated by: JONATHAN LINARES on TueJun 18, 2021 11:51:00 AM EDT Transcribed by: ZULMA CARDENAS on TueJun 18, 2021 11:58:13 AM EDT Finalized by: JONATHAN LINARES on TueJun 18, 2021 12:35:45 PM EDT [facility] Comment on above: Order Comment: Injur y/Trauma or Illness?:Illness/Other How long have you had these symptoms (acute/chronic)?:Chronic Reason for exam?:LBP AND bilat hip pain x years, nki Type of Exam?:Subsequent/Follow-up Additional signs and symptoms?:. CBC panel Auto (Bld)on 04-16 Erythrocyte distribution width (RBC) [Entitic vol] 14.0 % 11.6 - 14.8 % [facility] Hematocrit (Bld) [Volume fraction] 38.6 % 36.0 - 46.0 % [facility] Hemoglobin (Bld) [Mass/Vol] 12.1 g/dL 12.0 - 16.0 g/dL [facility] Interpretation and review of laboratory results Abnormal [facility] MCH (RBC) [Entitic mass] 25.4 pg Low 26. 0 - 34.0 pg [facility] MCHC (RBC) [Mass/Vol] 31.3 g/dL 31.0 - 37.0 g/dL [facility] MCV (RBC) [Entitic vol] 81.1 fL 80.0 - 100.0 fL [facility] Platelet mean volume (Bld) [Entitic vol] 10.0 fL 9.4 - 12.4 fL [facility] Platelets (Bld) [#/Vol] 379 10*3/uL [facility] RBC (Bld) [#/Vol] 4.76 10*6/uL [facility] WBC (Bld) [#/Vol] 9.85 10*3/uL [facility] Comprehensive metabolic 2000 panelon 04-16-2021 Albumin [Mass/Vol] 3.7 g/dL 3.2 - 5.2 g/dL [facility] ALP [Catalytic activity/Vol] 95 U/L 40 - 140 U/L [facility] ALT [Catalytic activity/Vol] 36 U/L 14 - 65 U/L [facility] Anion gap [Moles/Vol] 11 mmol/L 10 - 2 0 mmol/L [facility] AST [Catalytic activity/Vol] 22 U/L 0 - 45 U/L [facility] Bilirubin [Mass/Vol] 0.3 mg/dL 0.0 - 1 .3 mg/dL [facility] Calcium [Mass/Vol] 9.3 mg/dL 8.4 - 10. 2 mg/dL [facility] Chloride [Moles/Vol] 105 mmol/L 98 - 10 8 mmol/L [facility] Creatinine [Mass/Vol] 0.68 mg/dL 0.40 - 1.10 [facility] GFR/1.73 sq M.predicted CKD-EPI (S/P/Bld) [Vol rate/Area] 117 >=60 mL/min/1.73 m2 [facility] Glucose [Mass/Vol] 76 mg/dL 65 - 99 mg/dL [facility] HCO3 [Moles/Vol] 26 mmol/L 21 - 32 mmol/L [facility] Interpretation and review of laboratory results Normal [facility] Potassium [Moles/Vol] 4.2 mmol/L 3.5 - 5.1 mmol/L [facility] Protein [Mass/Vol] 7.5 g/dL 6.0 - 8.0 g/dL [facility] Sodium [Moles/Vol] 138 mmol/L 135 - 145 mmol/L [facility] Urea nitrogen [Mass/Vol] 13 mg/dL 8 - 25 mg/dL [facility] Urea nitrogen/Creatinine [Mass ratio] 19.1 mg/mg [facility] The eGFR should be used for monitoring renal function only and not for medication dosing. [facility] Lipid 1996 panelon Cholesterol [Mass/Vol] 195 mg/dL 100 - 199 mg/dL [facility] Comment on above: National Cholesterol Education Program Guidelines: Cholesterol Desirable: <200 mg/dL Borderline High: 200-239 mg/dL High: greater than or equal to 240 mg/dL Cholesterol in HDL [Mass/Vol] 56 mg/dL 40 - 59 [facility] Comment on above: National Cholesterol Education Program Guidelines: HDL Cholesterol Low: <40 mg/dL Near Optimal: 40-59 mg/dL High: greater than or equal to 60 mg/dL Cholesterol in LDL [Mass/Vol] 109 mg/dL 10 - 130 mg/dL [facility] Comment on above: National Cholesterol Education Program Guidelines: LDL Cholesterol Optimal: <100 mg/dL Near Optimal/above Optimal: 100-129 mg/dL Borderline High: 130-159 mg/dL High: 160-189 mg/dL Very High: greater than or equal to 190 mg/dL Cholesterol non HDL [Mass/Vol] 139 mg/dL [facility] Comment on above: National Cholesterol Education Program Guidelines: NON HDL Cholesterol Desirable: <130 mg/dL Borderline High: 130-159 mg/dL High: 160-189 mg/dL Very High: > or = 190 mg/dL Cholesterol.total/Cholest elton in HDL [Mass ratio] 3.5 {ratio} ratio [facility] Comment on above: Female Cholesterol/H DL Ratio: Average risk: 4.4 1/2 average risk: 3.3 2 x average risk: 7.1 Interpretation and review of laboratory results Abnormal [facility] Triglyceride [Mass/Vol] 151 mg/dL High 30 - 150 mg/dL [facility] Comment on above: National Cholesterol Education Program Guidelines: Triglyceride Normal: <150 mg/dL Borderline High: 150-199 mg/dL High: 200-499 mg/dL Very High: greater than or equal to 500 mg/dL No Panel Informationon 04-16 [facility] TSH DL <= 0.005 mIU/L Qnon 0 04-16-2021 Interpretation and review of laboratory results Normal [facility] TSH Qn 1.04 m[IU]/L [facility] Basic Metabolic Panel w/ Ref ray to MGon 03-23-2021 Anion gap [Moles/Vol] 13 mmol/L 9 - 17 mmol/L [facility] Calcium [Mass/Vol] 8.8 mg/dL 8.6 - 10. 4 mg/dL [facility] Chloride [Moles/Vol] 104 mmol/L 98 - 10 7 mmol/L [facility] CO2 [Moles/Vol] 21 mmol/L 20 - 31 mmol/L [facility] Creatinine [Mass/Vol] 0.65 mg/dL 0.50 - 0.90 mg/dL [facility] GFR >60 >60 mL/min [facility] GFR Non- >60 >60 mL/min [facility] GFR/1.73 sq M.predicted MDRD (S/P/Bld) [Vol rate/Area] [facility] Comment on above: Average GFR for 30-3 9 years old: 107 mL/min/1.73sq m Chronic Kidney Disease: <60 mL/min/1.73sq m Kidney failure: <15 mL/min/1.73sq m eGFR calculated using average adult body mass. Additional eGFR calculator available at: http://www.Dash/multiple_crcl_2012.htm GFR/1.73 sq M.predicted MDRD (S/P/Bld) [Vol rate/Area] NOT REPORTED [facility] Glucose [Mass/Vol] 104 mg/dL High 70 - 99 mg/dL [facility] Interpretation and review of laboratory results Abnormal [facility] Potassium [Moles/Vol] 3.7 mmol/L 3.7 - 5.3 mmol/L [facility] Sodium [Moles/Vol] 138 mmol/L 135 - 144 mmol/L [facility] Urea nitrogen (BldV) [Mass/Vol] 15 mg/dL 6 - 20 mg/dL [facility] Urea nitrogen/Creatinine (Bld) [Mass ratio] 23 High [facility] CBC Auto Differentialon 03-07 Absolute Eos # 0.10 [facility] [place] [facility] Absolute Immature Granulocyte NOT REPORTED [facility] Absolute Lymph # 0.60 Low [facility] alth Absolute Colbert # 0.50 [facility] lth Basophils (Bld) [#/Vol] 0.00 10*3/uL [facility] Basophils/100 WBC (Bld) 0 % 0 - 2 % [facility] Differential Type YES [facility]alth Eosinophils/100 WBC (Bld) 2 % 0 - 5 % [facility] Hematocrit (Bld) [Volume fraction] 34.6 % Low 36 - 46 % [facility] Hemoglobin.gastrointestin al spec 1 Ql (Stl) 11.7 g/dL Low 12.0 - 16.0 g/dL [facility] Immature Granulocytes NOT REPORTED 0 % [facility] Interpretation and review of laboratory results Abnormal [facility] Lymphocytes/100 WBC (Bld) 13 % Low 15 - 40 % [facility] MCH (RBC) [Entitic mass] 26.4 pg 26 - 34 pg [facility] MCHC (RBC) [Mass/Vol] 33.8 g/dL 31 - 3 7 g/dL [facility] MCV (RBC) [Entitic vol] 78.2 fL Low 80 - 100 fL [facility] Monocytes/100 WBC (Bld) 10 % High 4 - 8 % [facility] NRBC Automated NOT REPORTED per 100 WBC [facility] Platelet distribution width (Bld) [Ratio] 14.4 % 12.1 - 15.2 % [facility] Platelet Estimate NOT REPORTED [facility] Platelet mean volume (Bld) [Entitic vol] NOT REPORTED 6.0 - 12.0 fL [facility] Platelets (Bld) [#/Vol] 259 10*3/uL [facility] RBC (Bld) [#/Vol] 4.43 10*6/uL 4.0 - 5.2 m/uL [facility] RBC (Bld) [#/Vol] NOT REPORTED [facility] Segmented neutrophils/100 WBC (Bld) 75 % 47 - 75 % [facility] Segs Absolute 3.60 [facility] h WBC (Bld) [#/Vol] 4.8 10*3/uL [facility] WBC (Bld) [#/Vol] NOT REPORTED [facility] COVID-19, Rapidon 03-23-2021 Interpretation and review of laboratory results Abnormal [facility] SARS-CoV-2 (COVID-19) RNA KALPESH+probe Ql (Unsp spec) Detected Abnormal Not Detected [facility] Comment on above: Rapid NAAT: The specimen [...] this assay. Fact sheet for Healthcare Providers: https://www.fda.gov/media/004365/download Fact sheet for Patients: https://www.fda.gov/media/693847/download Methodology: Isothermal Nucleic Acid Amplification Results reported to the appropriate Health Department Specimen Description .NASOPHARYNGEAL SWAB [facility] No Panel Informationon 03-23 Direct Exam Negative [facility] Rapid influenza A/B antigens on 03-23-2021 Special Requests NOT REPORTED [facility] [email or web address] Specimen Description .NASOPHARYNGEAL SWAB [facility] COVID-19, RapidOrdered By: Shayy Springer on 12-27-2020 SARS-CoV-2 (COVID-19) RNA KALPESH+probe Ql (Unsp spec) Not detected Not Detected [employer] Work Phone: Comment on above: Rapid NAAT: [...] management decisions. Fact sheet for Healthcare Providers: https://www.fda.gov/media/891884/download Fact sheet for Patients: https://www.fda.gov/media/646182/download Methodology: Isothermal Nucleic Acid Amplification Specimen Description .NASOPHARYNGEAL SWAB [employer] Phone: [employer] Phone: Strep Screen Group A ThroatO rdered By: Wayne Springer on 12-27-2020 S. pyogenes Ag IA Ql (Unsp spec) Rapid Strep A negative. A negative Rapid Group A Strep Screen result does not rule out the possibility of Group A Streptococci in the specimen. A Group A Strep DNA test is available upon request. [employer] Phone: Special Requests NOT REPORTED [employer] Phone: Specimen Description .THROAT [employer] Phone: [employer] Phone: XR SHOULDER RIGHT (MIN 2 VIE WS)Ordered By: Anuj Quinn on 11-20-2020 No acute fracture or traumatic malalignment. [employer] Phone: EXAMINATION: XR SHOULDER RIGHT (MIN 2 VIEWS), , 11/20/2020 9:30 PM EDT INDICATION: Reason for exam:->shoulder pain HISTORY: Ordering Provider Reason for Exam: Technologist Note: Additional: COMPARISON: None. TECHNIQUE: Right shoulder x-ray: 3 view(s). FINDINGS: No acute fracture. Glenohumeral and acromioclavicular joints are anatomically aligned. Joint spaces are preserved. Soft tissues are unremarkable. [employer] Phone: Ward, pn Incoming Radiant Results From [facility] - 11/20/2020 9:55 PM EDT EXAMINATION: XR [...] IMPRESSION: No acute fracture or traumatic malalignment. [employer] Work Phone: [employer] Work Phone: COVID-19, MOLECULARon 2020 SARS-CoV-2 (COVID-19) RNA KALPESH+probe Ql (Unsp spec) Not detected Normal Not Detected [facility] Comment on above: Order Comment: [...] at the following links: For Healthcare Providers: https://www.fda.gov/media/296146/download For Patients: https://www.fda.gov/media/477592/download Performed By: #### L [id number] #### [facility] [address] [place] [address] Joe Rider M.D. [id number] HbA1c (Bld) [Mass fraction]O rdered By: Zelda Bautista on 07-09-2020 Interpretation and review of laboratory results Normal [facility] POC Hemoglobin [id number] By : Zelda Bautista on 07-09-2020 HbA1c (Bld) [Mass fraction] 5.2 % 4.0 - 6.0 % [facility] HbA1c (Bld) [Mass fraction]O rdered By: Lelo Gallegos on 06-09-2020 Interpretation and review of laboratory results Normal [facility] POC Hemoglobin [id number] By : Lelo Gallegos on 06-09-2020 HbA1c (Bld) [Mass fraction] 5.6 % 4.0 - 6.0 % [facility] CBC Auto Differentialon 03-08 Basophils (Bld) [#/Vol] 0.00 10*3/uL [place] Basophils/100 WBC (Bld) 0 % 0 - 2 % M [place], [place] Differential Type YES [place] Eosinophils (Bld) [#/Vol] 0.10 10*3/uL [place] Eosinophils/100 WBC (Bld) 1 % 0 - 5 % [place] Erythrocyte distribution width (RBC) [Ratio] 14.2 % 12.1 - 15.2 % [place] Hematocrit (Bld) [Volume fraction] 36.1 % 36 - 46 % [place] Hemoglobin (Bld) [Mass/Vol] 12.5 g/dL 12 - 16 g/dL [place] Interpretation and review of laboratory results Abnormal [place] Lymphocytes (Bld) [#/Vol] 2.00 10*3/uL [place] Lymphocytes/100 WBC (Bld) 14 % Low 15 - 40 % [place] MCH (RBC) [Entitic mass] 30.6 pg 26 - 34 pg [place] MCHC (RBC) [Mass/Vol] 34.5 g/dL 31 - 3 7 g/dL [place] MCV (RBC) [Entitic vol] 88.5 fL 80 - 100 fL [place] Monocytes (Bld) [#/Vol] 0.80 10*3/uL [place] Monocytes/100 WBC (Bld) 6 % 4 - 8 % [place] Platelet mean volume (Bld) [Entitic vol] NOT REPORTED 6 - 12 fL [place] Platelets (Bld) [#/Vol] 300 10*3/uL [place] Platelets (Bld) [#/Vol] NOT REPORTED [place] RBC (Bld) [#/Vol] 4.08 10*6/uL 4 - 5.2 m/uL [place] RBC morphology finding Nom (Bld) NOT REPORTED [place] Segmented neutrophils/100 WBC (Bld) 79 % High 47 - 75 % [place] Segs Absolute 10.70 [place] WBC (Bld) [#/Vol] 13.6 10*3/uL [place] WBC (Bld) [#/Vol] NOT REPORTED per 100 WBC [place] WBC Morphology NOT REPORTED [place] COVID-19, PCRon 03-26-2020 SARS-CoV-2, Rapid Not Detected Not Detected [place] Comment on above: Rapid NAAT: The [...] management decisions. Fact sheet for Healthcare Providers: https://www.fda.gov/media/713773/download Fact sheet for Patients: https://www.fda.gov/media/965347/download Methodology: Isothermal Nucleic Acid Amplification Source .THROAT [place] Comprehensive Metabolic Pane l w/ Reflex to MGon 03-26-2020 Albumin [Mass/Vol] 3.3 g/dL Low 3.5 - 5.2 g/dL [place] Albumin/Globulin [Mass ratio] NOT REPORTED [place] ALP [Catalytic activity/Vol] 57 U/L 35 - 104 U/L [place] ALT [Catalytic activity/Vol] U/L Low 5 - 33 U/L [place] Anion gap [Moles/Vol] 11 mmol/L 9 - 17 mmol/L [place] AST [Catalytic activity/Vol] 9 U/L <32 [place] Bilirubin Ql (U) 0.10 mg/dL Low 0.3 - 1.2 mg/dL [place] Bun/Cre Ratio 21 [place] Calcium [Mass/Vol] 10.2 mg/dL 8.6 - 10. 4 mg/dL [place] Chloride [Moles/Vol] 104 mmol/L 98 - 10 7 mmol/L [place] CO2 [Moles/Vol] 21 mmol/L 20 - 31 mmol/L [place] Creatinine [Mass/Vol] 0.42 mg/dL Low 0.5 - 0.9 mg/dL [place] GFR >60 >60 mL/min [place] GFR Non- >60 >60 mL/min [place] GFR/1.73 sq M predicted among non-blacks MDRD (S/P/Bld) [Vol rate/Area] NOT REPORTED [place] GFR/1.73 sq M predicted among non-blacks MDRD (S/P/Bld) [Vol rate/Area] [place] Comment on above: Average GFR for 30-3 9 years old: 107 mL/min/1.73sq m Chronic Kidney Disease: <60 mL/min/1.73sq m Kidney failure: <15 mL/min/1.73sq m eGFR calculated using average adult body mass. Additional eGFR calculator available at: http://www.Dash/multiple_crcl_2012.htm Glucose [Mass/Vol] 100 mg/dL High 70 - 99 mg/dL [place] Interpretation and review of laboratory results Abnormal [place] Potassium [Moles/Vol] 3.8 mmol/L 3.7 - 5.3 mmol/L [place] Protein [Mass/Vol] 6.5 g/dL 6.4 - 8.3 g/dL [place] Sodium [Moles/Vol] 136 mmol/L 135 - 144 mmol/L [place] Urea nitrogen [Mass/Vol] 9 mg/dL 6 - 20 mg/dL [place] Otheron 03-26-2020 SARS-CoV-2 [place] Immature granulocytes (Bld) [#/Vol] NOT REPORTED [place] Urinalysis, reflex to micros copicon 03-26-2020 Bilirubin U[facility] [place] [place] Color, UA YELLOW YELLOW [place] Glucose, Ur Negative NEGATIVE [place] Ketones Ql (U) Negative NEGATIVE [place] Leukocyte esterase Test strip Ql (U) Negative NEGATIVE [place] Nitrite, Urine Negative NEGATIVE [place] pH, UA 7.0 [place] Protein (U) [Mass/Vol] Negative NEGATIVE [place] Specific [place], UA 1.010 [place] Turbidity UA CLEAR CLEAR [place] Urinalysis Comments [place] Urine Hgb Negative NEGATIVE [place] Urobilinogen, Urine Normal Normal [place] Wet Prep, Genitalon 11-20-19 Direct Exam MODERATE EPITHELIAL CELLS Abnormal [place] Direct Exam FEW TRICHOMONAS SEEN Abnormal [place] Direct Exam MODERATE BACTERIA Abnormal [place] Direct Exam Few epithelials coated with bacteria resembling clue cells. Abnormal [place] Direct Exam NO FUNGAL ELEMENTS SEEN [place] Interpretation and review of laboratory results Abnormal [place] Special Requests NOT REPORTED [place] Specimen Description .VAGINAL SPECIMEN [place] WBC (Bld) [#/Vol] FEW WBC SEEN Abnormal [place] Basic Metabolic Panelon - Anion gap [Moles/Vol] 15 mmol/L 10 - 2 0 mmol/L [facility] Calcium [Mass/Vol] 8.6 mg/dL 8.4 - 10. 2 mg/dL [facility] Chloride [Moles/Vol] 102 mmol/L 98 - 10 8 mmol/L [facility] Creatinine [Mass/Vol] 0.36 mg/dL Low 0.40 - 1.10 [facility] GFR/1.73 sq M predicted among non-blacks MDRD (S/P/Bld) [Vol rate/Area] The eGFR should be used for monitoring renal function only and not for medication dosing. [facility] GFR/1.73 sq M.predicted CKD-EPI (S/P/Bld) [Vol rate/Area] 146 >=60 mL/min/1.73 m2 [facility] Glucose [Mass/Vol] 102 mg/dL High 65 - 99 mg/dL [facility] HCO3 [Moles/Vol] 25 mmol/L 21 - 32 mmol/L [facility] Interpretation and review of laboratory results Abnormal [facility] Potassium [Moles/Vol] 4.1 mmol/L 3.5 - 5.1 mmol/L [facility] Sodium [Moles/Vol] 138 mmol/L 135 - 145 mmol/L [facility] Urea nitrogen [Mass/Vol] 5 mg/dL Low 8 - 25 mg/dL [facility] Urea nitrogen/Creatinine [Mass ratio] 13.9 mg/mg [facility] Hepatic Function Panelon Albumin [Mass/Vol] 3.3 g/dL 3.2 - 5.2 g/dL [facility] ALP [Catalytic activity/Vol] 253 U/L High 40 - 140 U/L [facility] ALT [Catalytic activity/Vol] 686 U/L High 0 - 40 U/L [facility] AST [Catalytic activity/Vol] 349 U/L High 0 - 45 U/L [facility] Bilirubin [Mass/Vol] 6.0 mg/dL High 0 - 1.3 mg/dL [facility] Bilirubin.conjugated [Mass/Vol] 5.1 mg/dL High 0 - 0.4 mg/dL [facility] Interpretation and review of laboratory results Abnormal [facility] Protein [Mass/Vol] 6.8 g/dL 6 - 8 g/dL [facility] alth Bilirubin, Directon 06-16-19 20 Bilirubin.conjugated [Mass/Vol] 5.4 mg/dL High 0 - 0.4 mg/dL [facility] Interpretation and review of laboratory results Abnormal [facility] CBCon 06-16-2019 Erythrocyte distribution width (RBC) [Entitic vol] 15.1 % High 11.6 - 14.8 % [facility] Hematocrit (Bld) [Volume fraction] 38.5 % 36 - 46 % [facility] Hemoglobin (Bld) [Mass/Vol] 12.9 g/dL 12 - 16 g/dL [facility] Interpretation and review of laboratory results Abnormal [facility] MCH (RBC) [Entitic mass] 29.1 pg 26 - 34 pg [facility] MCHC (RBC) [Mass/Vol] 33.5 g/dL 31 - 3 7 g/dL [facility] MCV (RBC) [Entitic vol] 86.9 fL 80 - 100 fL [facility] Nucleated RBC (Bld) [#/Vol] 0.00 10*3/uL [facility] Nucleated RBC/100 WBC (Bld) [Ratio] 0.0 % [facility] Platelet mean volume (Bld) [Entitic vol] 11.3 fL 9 - 15.5 fL [facility] Platelets (Bld) [#/Vol] 185 10*3/uL [facility] RBC (Bld) [#/Vol] 4.43 10*6/uL [facility] WBC (Bld) [#/Vol] 6.48 10*3/uL [facility] Comprehensive Metabolic Pane cayden 06-16-2019 Albumin [Mass/Vol] 3.3 g/dL 3.2 - 5.2 g/dL [facility] ALP [Catalytic activity/Vol] 217 U/L High 40 - 140 U/L [facility] ALT [Catalytic activity/Vol] 825 U/L High 0 - 40 U/L [facility] Anion gap [Moles/Vol] 14 mmol/L 10 - 2 0 mmol/L [facility] AST [Catalytic activity/Vol] 544 U/L High 0 - 45 U/L [facility] Bilirubin [Mass/Vol] 5.9 mg/dL High 0 - 1.3 mg/dL [facility] Calcium [Mass/Vol] 8.4 mg/dL 8.4 - 10. 2 mg/dL [facility] Chloride [Moles/Vol] 103 mmol/L 98 - 10 8 mmol/L [facility] Creatinine [Mass/Vol] 0.32 mg/dL Low 0.40 - 1.10 [facility] GFR/1.73 sq M predicted among non-blacks MDRD (S/P/Bld) [Vol rate/Area] The eGFR should be used for monitoring renal function only and not for medication dosing. [facility] GFR/1.73 sq M.predicted CKD-EPI (S/P/Bld) [Vol rate/Area] 152 >=60 mL/min/1.73 m2 [facility] Glucose [Mass/Vol] 92 mg/dL 65 - 99 mg/dL [facility] HCO3 [Moles/Vol] 26 mmol/L 21 - 32 mmol/L [facility] Interpretation and review of laboratory results Abnormal [facility] Potassium [Moles/Vol] 4.3 mmol/L 3.5 - 5.1 mmol/L [facility] Protein [Mass/Vol] 6.2 g/dL 6 - 8 g/dL [facility] alth Sodium [Moles/Vol] 139 mmol/L 135 - 145 mmol/L [facility] Urea nitrogen [Mass/Vol] 4 mg/dL Low 8 - 25 mg/dL [facility] Urea nitrogen/Creatinine [Mass ratio] 12.5 mg/mg [facility] Bilirubin, Directon 06-15-19 20 Bilirubin.conjugated [Mass/Vol] 4.7 mg/dL High 0 - 0.4 mg/dL [facility] Interpretation and review of laboratory results Abnormal [facility] CBCon 06-15-2019 Erythrocyte distribution width (RBC) [Entitic vol] 14.8 % 11.6 - 14.8 % [facility] Hematocrit (Bld) [Volume fraction] 38.5 % 36 - 46 % [facility] Hemoglobin (Bld) [Mass/Vol] 12.6 g/dL 12 - 16 g/dL [facility] MCH (RBC) [Entitic mass] 29.0 pg 26 - 34 pg [facility] MCHC (RBC) [Mass/Vol] 32.7 g/dL 31 - 3 7 g/dL [facility] MCV (RBC) [Entitic vol] 88.5 fL 80 - 100 fL [facility] Nucleated RBC (Bld) [#/Vol] 0.00 10*3/uL [facility] Nucleated RBC/100 WBC (Bld) [Ratio] 0.0 % [facility] Platelet mean volume (Bld) [Entitic vol] 11.0 fL 9 - 15.5 fL [facility] Platelets (Bld) [#/Vol] 155 10*3/uL [facility] RBC (Bld) [#/Vol] 4.35 10*6/uL [facility] WBC (Bld) [#/Vol] 5.74 10*3/uL [facility] Comprehensive Metabolic Pane cayden 06-15-2019 Albumin [Mass/Vol] 3.2 g/dL 3.2 - 5.2 g/dL [facility] ALP [Catalytic activity/Vol] 193 U/L High 40 - 140 U/L [facility] ALT [Catalytic activity/Vol] 888 U/L High 0 - 40 U/L [facility] Anion gap [Moles/Vol] 15 mmol/L 10 - 2 0 mmol/L [facility] AST [Catalytic activity/Vol] 667 U/L High 0 - 45 U/L [facility] Bilirubin [Mass/Vol] 5.2 mg/dL High 0 - 1.3 mg/dL [facility] Calcium [Mass/Vol] 8.2 mg/dL Low 8.4 - 10. 2 mg/dL [facility] Chloride [Moles/Vol] 103 mmol/L 98 - 10 8 mmol/L [facility] Creatinine [Mass/Vol] 0.36 mg/dL Low 0.40 - 1.10 [facility] GFR/1.73 sq M predicted among non-blacks MDRD (S/P/Bld) [Vol rate/Area] The eGFR should be used for monitoring renal function only and not for medication dosing. [facility] GFR/1.73 sq M.predicted CKD-EPI (S/P/Bld) [Vol rate/Area] 146 >=60 mL/min/1.73 m2 [facility] Glucose [Mass/Vol] 122 mg/dL High 65 - 99 mg/dL [facility] HCO3 [Moles/Vol] 22 mmol/L 21 - 32 mmol/L [facility] Interpretation and review of laboratory results Abnormal [facility] Potassium [Moles/Vol] 3.8 mmol/L 3.5 - 5.1 mmol/L [facility] Protein [Mass/Vol] 5.8 g/dL Low 6 - 8 g/dL [facility] alth Sodium [Moles/Vol] 136 mmol/L 135 - 145 mmol/L [facility] Urea nitrogen [Mass/Vol] 5 mg/dL Low 8 - 25 mg/dL [facility] Urea nitrogen/Creatinine [Mass ratio] 13.9 mg/mg [facility] NM HEPATOBILIARY WO EJECTION FRACTIONon 06-15-2019 [...] tree, and small bowel are not visualized. [facility] Opacified liver with no visualization of [...] regarding the presence or absence of cholecystitis. [employer] Workstation ID: [id number] [facility] Interface, Rad In Fuji Speechq - [...] regarding the presence or absence of cholecystitis. [employer] Work[employer] ID: [id number] [facility] APTTon 06-14-2019 aPTT Coag (Marybeth) [Time] 31.1 s [facility] [place] Comment on above: PTT Therapeutic Range: 61.7-88.4 Therapeutic range corresponds to plasma heparin levels of 0.3-0.7 U/mL. Acetaminophen Levelon 2019 Acetaminophen [Mass/Vol] 9.1 [facility] Interpretation and review of laboratory results Normal [facility] Bilirubin, Directon 06-14-19 20 Bilirubin.conjugated [Mass/Vol] 4.3 mg/dL High 0 - 0.4 mg/dL [facility] Interpretation and review of laboratory results Abnormal [facility] CBC WITH AUTO DIFFERENTIALon 06-14-2019 Erythrocyte distribution width (RBC) [Entitic vol] 14.5 % 11.6 - 14.8 % [facility] Hematocrit (Bld) [Volume fraction] 34.6 % Low 36 - 46 % [facility] Hemoglobin (Bld) [Mass/Vol] 11.6 g/dL Low 12 - 16 g/dL [facility] Interpretation and review of laboratory results Abnormal [facility] MCH (RBC) [Entitic mass] 29.7 pg 26 - 34 pg [facility] MCHC (RBC) [Mass/Vol] 33.5 g/dL 31 - 3 7 g/dL [facility] MCV (RBC) [Entitic vol] 88.5 fL 80 - 100 fL [facility] Nucleated RBC (Bld) [#/Vol] 0.00 10*3/uL [facility] Nucleated RBC/100 WBC (Bld) [Ratio] 0.0 % [facility] Platelet mean volume (Bld) [Entitic vol] 10.8 fL 9 - 15.5 fL [facility] Platelets (Bld) [#/Vol] 172 10*3/uL [facility] RBC (Bld) [#/Vol] 3.91 10*6/uL Low [facility] WBC (Bld) [#/Vol] 7.28 10*3/uL [facility] ealth CT ABDOMEN PELVIS W IV CONTR AST Additional Contrast? Noneon 06-14-2019 Ward, Mhpn Incoming Radiant Results From [facility] - 06/14/2019 12:27 AM EDT EXAMINATION: CT [...] liver function panel and consider ultrasound imaging. [place] Pericholecystic fluid versus gallbladder wall thickening and additional periportal edema. There are no visualized stones in the gallbladder gallbladder and/or hepatic pathology are suspected. Correlate with liver function panel and consider ultrasound imaging. [place] EXAMINATION: CT ABDOMEN PELVIS W IV [...] structures demonstrate no acute or concerning abnormality. [place] CT COMPARISON IMPORTon 06-13 This order has been auto-finalized and does not contain a result. [facility] Comprehensive Metabolic Pane cayden 06-14-2019 Albumin [Mass/Vol] 3.0 g/dL Low 3.2 - 5.2 g/dL [facility] ALP [Catalytic activity/Vol] 183 U/L High 40 - 140 U/L [facility] ALT [Catalytic activity/Vol] 808 U/L High 0 - 40 U/L [facility] Anion gap [Moles/Vol] 16 mmol/L 10 - 2 0 mmol/L [facility] AST [Catalytic activity/Vol] 592 U/L High 0 - 45 U/L [facility] Bilirubin [Mass/Vol] 4.9 mg/dL High 0 - 1.3 mg/dL [facility] Calcium [Mass/Vol] 8.4 mg/dL 8.4 - 10. 2 mg/dL [facility] Chloride [Moles/Vol] 104 mmol/L 98 - 10 8 mmol/L [facility] Creatinine [Mass/Vol] 0.43 mg/dL 0.40 - 1.10 [facility] GFR/1.73 sq M predicted among non-blacks MDRD (S/P/Bld) [Vol rate/Area] The eGFR should be used for monitoring renal function only and not for medication dosing. [facility] GFR/1.73 sq M.predicted CKD-EPI (S/P/Bld) [Vol rate/Area] 138 >=60 mL/min/1.73 m2 [facility] Glucose [Mass/Vol] 79 mg/dL 65 - 99 mg/dL [facility] HCO3 [Moles/Vol] 21 mmol/L 21 - 32 mmol/L [facility] Interpretation and review of laboratory results Abnormal [facility] Potassium [Moles/Vol] 3.8 mmol/L 3.5 - 5.1 mmol/L [facility] Protein [Mass/Vol] 5.7 g/dL Low 6 - 8 g/dL [facility] alth Sodium [Moles/Vol] 137 mmol/L 135 - 145 mmol/L [facility] Urea nitrogen [Mass/Vol] 9 mg/dL 8 - 25 mg/dL [facility] Urea nitrogen/Creatinine [Mass ratio] 20.9 mg/mg High [facility] DRUGS OF ABUSE SCREEN, URINE on 06-14-2019 Amphetamines Ql (U) None Detected None Detected [facility] Comment on above: Urine Amphetamine Cu toff: < 1000 ng/mL = None Detected Barbiturates Screen Ql (U) None Detected None Detected [facility] Comment on above: Urine Barbiturates C utoff: < 200 ng/mL = None Detected Benzodiazepines Ql (U) None Detected None Detected [facility] Comment on above: Urine Benzodiazepine Cutoff: < 300 ng/mL = None Detected Cannabinoids Screen Ql (U) None Detected None Detected [facility] Comment on above: Urine Cannabinoids C utoff: < 50 ng/mL = None Detected Cocaine Ql (U) Positive Abnormal None Detected [facility] Comment on above: Urine Cocaine Cutoff : < 300 ng/mL = None Detected Interpretation and review of laboratory results Abnormal [facility] Methadone Screen Ql (U) None Detected Non e Detected [facility] Comment on above: Urine Methadone Cuto ff: < 300 ng/mL = None Detected Opiates Screen Ql (U) None Detected None Detected [facility] Comment on above: Urine Opiates Cutoff : < 300 ng/mL = None Detected Oxycodone Ql (U) None Detected None Detected [facility] Comment on above: Urine Oxycodone Cuto ff: < 100 ng/mL = None Detected Screen results should be used for treatment purposes only. Specimen will be kept for 2 weeks, if the sample is adequate. Confirmation testing can be initiated by calling the lab within 2 weeks. [facility] HEPATITIS PANEL, ACUTEon HAV IgM Ql (S) Negative Negative [facility] HBV core IgM Ql (S) Negative Negative [facility] HBV surface Ag Ql (S) Negative Negative [facility] HCV Ab Ql (S) Positive Abnormal Negative [facility] Comment on above: A positive antibody test requires additional follow-up testing, Hepatitis C Virus Quantitation, to determine if a person is currently infected with Hepatitis C. Interpretation and review of laboratory results Abnormal [facility] Test performed using Constantin DEVIKA immunoassay system [facility] Lactic Acid, Plasmaon 2019 Interpretation and review of laboratory results Normal [facility] Lactate [Moles/Vol] 0.8 mmol/L 0.6 - 2 mmol/L [facility] MORPHOLOGYon 06-14-2019 Platelets LM Ql (Bld) Normal Normal [facility] RBC morphology finding Nom (Bld) Normal [facility] MRCPon 06-14-2019 EXAMINATION: MRCP 03/15/2024 HISTORY: [...] Axial T1-weighted images were obtained in- and [id number]. Axial diffusion-weighted imaging was also performed. FINDINGS: The liver overall appears enlarged with the right hepatic lobe measuring 22.6 cm qputkoru-zr-ivyuhgk r. The spleen measures 14.6 cm mapznsxb-wx-iplfnll r and is also mildly enlarged. There [...] the right kidney. Bowel pattern is nonobstructive. [facility] 1. Re-demonstration of diffuse periportal edema as well as significant circumferential gallbladder wall edema similar to that seen on prior CT study. 2. Mild hepatosplenomegaly. 3. No obvious gallstones. Negative for biliary or pancreatic ductal dilatation. Negative for choledocholithiasis . 4. Trace volume of abdominal ascites. [employer] Workstation ID: [id number] [facility] Interface, Rad In Fuji Speechq - [...] Axial T1-weighted images were obtained in- and [id number]. Axial diffusion-weighted imaging was also performed. FINDINGS: The liver overall appears enlarged with the right hepatic lobe measuring 22.6 cm sdrankes-vc-hlrwesh r. The spleen measures 14.6 cm kseamvfd-kl-azygexe r and is also mildly enlarged. There [...] . 4. Trace volume of abdominal ascites. [employer] Workstation ID: [id number] [facility] Manual Differentialon 2019 Basophils (Bld) [#/Vol] 0.00 10*3/uL [facility] Basophils/100 WBC (Bld) 0.0 % [facility] Eosinophils (Bld) [#/Vol] 0.00 10*3/uL [facility] Eosinophils/100 WBC (Bld) 0.0 % [facility] Lymphocytes (Bld) [#/Vol] 3.28 10*3/uL [facility] Lymphocytes/100 WBC (Bld) 37.0 % [facility] Monocytes (Bld) [#/Vol] 0.44 10*3/uL [facility] Monocytes/100 WBC (Bld) 6.0 % [facility] Neutrophils (Bld) [#/Vol] 3.57 10*3/uL [facility] Neutrophils/100 WBC (Bld) 49.0 % [facility] Variant lymphocytes/100 WBC (Bld) 8.0 % [facility] PT/INRon 06-14-2019 INR Coag (PPP) [Relative time] 1.3 {INR} [facility] Interpretation and review of laboratory results Abnormal [facility] PT Coag (PPP) [Time] 15.5 s [facility] During the induction phase of oral anticoagulation, the INR may not reflect the anticoagulation status of the patient. Therapeutic ranges for INR's are: Most clinical situations: INR 2.0-3.0 Mechanical Prosthetic Valve: INR 2.5-3.5 Critical: INR >5.0 [facility] Protime-INRon 06-14-2019 INR Coag (PPP) [Relative time] 1.2 {INR} [place], [place] Comment on above: * THERAPY INDICATIONS * REFERENCE RANGES Pts not on anti-coagulants 1.0 - 1.5 INR Low risk pts on anti-coagulants 2.0 - 3.0 INR High risk pts on anti-coagulants 2.5 - 3.5 INR Prevention of atrial thrombo-embolism 3.0 - 4.5 INR Interpretation and review of laboratory results Abnormal [place], [place] PT Coag (PPP) [Time] 11.7 s [place] Salicylate Levelon 0 Interpretation and review of laboratory results Abnormal [facility] Salicylates [Mass/Vol] mg/dL Low 10 - 20 mg/dL [facility] URINALYSISon 06-14-2019 Bacteria Auto Ql (U) Rare Abnormal None Se en /hpf [facility] Bilirubin Ql (U) Positive Abnormal Negative [facility] th Comment on above: False positive urine bilirubins can occur in the setting of a large amount of hemoglobin and secondary to medications including anti-inflammatory agents, rifampin, and pyridium. Clarity Refractometry automated (U) Clear Clear [facility] Color (U) Eirca Abnormal Colorless, Yellow [facility] Epithelial cells.squamous Auto (Urine sed) [#/Area] 4 [facility] alth Glucose Auto test strip (U) [Mass/Vol] Negative Negative mg/dL [facility] Hemoglobin Auto test strip Ql (U) Negative Negative [facility] Interpretation and review of laboratory results Abnormal [facility] Ketones (U) [Mass/Vol] >=80 Abnormal Negat krystal mg/dL [facility] Leukocyte esterase Auto test strip Ql (U) Negative Negative [facility] Mucus Auto (Urine sed) [#/Area] Rare None Seen, Rare /lpf [facility] Nitrite Auto test strip Ql (U) Negative Negative [facility] pH (U) 6.0 [pH] [facility] Protein (U) [Mass/Vol] 30 Abnormal Negat krystal mg/dL [facility] Comment on above: False positive resul ts may occur in urines with large amounts of hemoglobin, pH greater than 8.0, contrast medium, or disinfectants including ammonium compounds. RBC Auto (Urine sed) [#/Area] 2 [facility] Specific gravity (U) [Rel density] 1.028 High [facility] Urobilinogen (U) [Mass/Vol] >=4.0 Abnormal <2.0 mg/dL [facility] WBC Auto (Urine sed) [#/Area] 2 [facility] Microscopic examination is performed on all urinalysis samples and only positive findings are reported. The test for blood on the chemical analytic portion of urinalysis may also be positive due to hemoglobinuria and myoglobinuria and if red blood cells are present they are quantified by microscopic examination. [facility] US ABDOMEN LIMITED STUDYon 0 06-14-2019 [...] liver likely small hemangioma. Workstation ID: [id number] EXAMINATION: US ABDOMEN LIMITED STUDY HISTORY: RUQ [...] measures 10.7 cm in length. No hydronephrosis. [facility] 1. Contracted gallbladder limits evaluation. No cholelithiasis identified. Nonspecific edematous gallbladder wall thickening and reported positive sonographic Short's sign, cannot exclude acalculus cholecystitis. No biliary ductal dilatation. 2. 1.3 cm echogenic lesion left lobe of the liver likely small hemangioma. Workstation ID: [id number] [facility] Amylaseon 06-13-2019 Amylase [Catalytic activity/Vol] 22 U/L Low 28 - 100 U/L [place] CBC Auto Differentialon Basophils (Bld) [#/Vol] 0.00 10*3/uL [place] Basophils/100 WBC (Bld) 1 % 0 - 2 % M [place] Differential Type YES [facility] [place] Eosinophils (Bld) [#/Vol] 0.00 10*3/uL [place] Eosinophils/100 WBC (Bld) 0 % 0 - 5 % [place] Erythrocyte distribution width (RBC) [Ratio] 14.9 % 12.1 - 15.2 % [place] Hematocrit (Bld) [Volume fraction] 43.3 % 36 - 46 % [place] Hemoglobin (Bld) [Mass/Vol] 14.3 g/dL 12 - 16 g/dL [place] Lymphocytes (Bld) [#/Vol] 2.50 10*3/uL [place] Lymphocytes/100 WBC (Bld) 30 % 15 - 40 % [place] MCH (RBC) [Entitic mass] 28.8 pg 26 - 34 pg [place] MCHC (RBC) [Mass/Vol] 33.1 g/dL 31 - 3 7 g/dL [place] MCV (RBC) [Entitic vol] 87.2 fL 80 - 100 fL [place] Monocytes (Bld) [#/Vol] 0.70 10*3/uL [place] Monocytes/100 WBC (Bld) 8 % 4 - 8 % [place] Platelet mean volume (Bld) [Entitic vol] NOT REPORTED 6 - 12 fL [place] Platelets (Bld) [#/Vol] 203 10*3/uL [place] Platelets (Bld) [#/Vol] NOT REPORTED [place] RBC (Bld) [#/Vol] 4.97 10*6/uL 4 - 5.2 m/uL [place] RBC morphology finding Nom (Bld) NOT REPORTED [place] Segmented neutrophils/100 WBC (Bld) 61 % 47 - 75 % [place] Segs Absolute 5.20 [place] WBC (Bld) [#/Vol] 8.4 10*3/uL [place] WBC (Bld) [#/Vol] NOT REPORTED per 100 WBC [place] WBC Morphology NOT REPORTED [place] Comprehensive Metabolic Pane l w/ Reflex to MGon 06-13-2019 Albumin [Mass/Vol] 4.1 g/dL 3.5 - 5.2 g/dL [place] Albumin/Globulin [Mass ratio] NOT REPORTED [place] ALP [Catalytic activity/Vol] 255 U/L High 35 - 104 U/L [place] ALT [Catalytic activity/Vol] 1116 U/L High 5 - 33 U/L [place] Anion gap [Moles/Vol] 17 mmol/L 9 - 17 mmol/L [place] AST [Catalytic activity/Vol] 665 U/L High <32 [place] Bilirubin Ql (U) 6.52 mg/dL High 0.3 - 1.2 mg/dL [place] Bun/Cre Ratio 17 [place] Calcium [Mass/Vol] 10.1 mg/dL 8.6 - 10. 4 mg/dL [place] Chloride [Moles/Vol] 95 mmol/L Low 98 - 10 7 mmol/L [place] CO2 [Moles/Vol] 24 mmol/L 20 - 31 mmol/L [place] Creatinine [Mass/Vol] 0.82 mg/dL 0.5 - 0.9 mg/dL [place] GFR >60 >60 mL/min [place] GFR Non- >60 >60 mL/min [place] GFR/1.73 sq M predicted among non-blacks MDRD (S/P/Bld) [Vol rate/Area] [place] Comment on above: Average GFR for 20-2 9 years old: 116 mL/min/1.73sq m Chronic Kidney Disease: <60 mL/min/1.73sq m Kidney failure: <15 mL/min/1.73sq m eGFR calculated using average adult body mass. Additional eGFR calculator available at: http://www.Dash/multiple_crcl_2012.htm GFR/1.73 sq M predicted among non-blacks MDRD (S/P/Bld) [Vol rate/Area] NOT REPORTED [place] Glucose [Mass/Vol] 134 mg/dL High 70 - 99 mg/dL [place] Interpretation and review of laboratory results Abnormal [place] Potassium [Moles/Vol] 3.7 mmol/L 3.7 - 5.3 mmol/L [place] Protein [Mass/Vol] 8.1 g/dL 6.4 - 8.3 g/dL [place] Sodium [Moles/Vol] 136 mmol/L 135 - 144 mmol/L [place] Urea nitrogen [Mass/Vol] 14 mg/dL 6 - 20 mg/dL [place] Drug screen multi urineon Amphetamine Screen, Ur Negative NEGATIVE [place] Comment on above: (Positive cutoff 500 ng/mL) Barbiturate Screen, Ur Negative NEGATIVE [place] Comment on above: (Positive cutoff 200 ng/mL) Benzodiazepine Screen, Urine Negative NEGATIVE [place] Comment on above: (Positive cutoff 150 ng/mL) Buprenorphine Urine NOT REPORTED NEGATIVE [place] Cannabinoid Scrn, Ur Negative NEGATIVE [place] Comment on above: (Positive cutoff 50 ng/mL) Cocaine Metabolite, Urine Positive Abnormal NEGATIVE [place] Comment on above: (Positive cutoff 150 ng/mL) Interpretation and review of laboratory results Abnormal [place] MDMA, Urine NOT REPORTED NEGATIVE [place] Methadone Screen, Urine Negative NEGATIVE [place] Comment on above: (Positive cutoff 200 ng/mL) Methamphetamine, Urine Negative NEGATIVE [place] Comment on above: (Positive cutoff 500 ng/mL) Opiates, Urine Positive Abnormal NEGATIVE [place] Comment on above: (Positive cutoff 100 ng/mL) Oxycodone Screen, Ur Negative NEGATIVE [place] Comment on above: (Positive cutoff 100 ng/mL) Phencyclidine, Urine Negative NEGATIVE [place] Comment on above: (Positive cutoff 25 ng/mL) Propoxyphene, Urine Negative NEGATIVE [place] Comment on above: (Positive cutoff 300 ng/mL) Test Information NOT REPORTED [place] Tricyclic Antidepressants, Urine Negative NEGATIVE [place] Comment on above: (Positive cutoff 300 ng/mL) Drug screen results are to be used for medical purposes only. All positive results are unconfirmed. Testing for employment or legal uses should be sent to a reference laboratory for confirmation. Lactic Acidon 06-13-2019 Lactate [Moles/Vol] 1.2 mmol/L 0.5 - 2. 2 mmol/L [place] Lipaseon 06-13-2019 Lipase [Catalytic activity/Vol] 8 U/L Low 13 - 60 U/L [place] Microscopic Urinalysison Amorphous, UA NOT REPORTED None [place] Bacteria, UA 2+ Abnormal None [place] Casts UA 5 TO 10 HYALINE /LPF [place] Casts UA 2 TO 5 WAXY /LPF [place] Crystals, UA NOT REPORTED None /HPF [place] Epithelial Cells UA LOADED /HPF [place] Interpretation and review of laboratory results Abnormal [place] Mucus, UA 4+ Abnormal [place] Other Observations UA NOT REPORTED NOT REQ. M [place] RBC (U) [#/Vol] 5 TO 10 [place] Renal Epithelial, UA NOT REPORTED 0 /HPF [place] Trichomonas, UA NOT REPORTED None [place] WBC, UA 10 TO 20 0 /HPF [place] Yeast, UA NOT REPORTED None [place] - [place] Otheron 06-13-2019 Interpretation and review of laboratory results Abnormal [place] Immature granulocytes (Bld) [#/Vol] NOT REPORTED 0 % [place] , Urineon 0 Beta HCG ( test) Ql (U) Negative NEGATIVE [place] Urinalysis, reflex to micros copicon 06-13-2019 Bilirubin Urine 3+ Abnormal [facility] [place] Color, UA BROWN Abnormal YELLOW [place] Glucose, Ur Negative NEGATIVE [place] Interpretation and review of laboratory results Abnormal [place] Ketones Ql (U) MODERATE Abnormal NEGAT[place] Leukocyte esterase Test strip Ql (U) 1+ Abnormal NEGATIVE [place] Nitrite, Urine Positive Abnormal NEGAT[place] pH, UA 5.0 [place] Protein (U) [Mass/Vol] 1+ Abnormal NEGATIVE [place] Specific [place], UA 1.020 [place] Turbidity UA CLEAR CLEAR [place] Urinalysis Comments [place] Urine Hgb TRACE Abnormal NEGATIVE [place] Urobilinogen, Urine 12 mg/dL Abnormal Normal [place] Vital Signs Date Time Vital Sign Value Performing Clinician Facility 10-05-2023 21:00-0400 Body temperature 99.61 [degF] Violet Juarez MD Work Phone: [facility] 10-05-2023 21:00-0400 Diastolic blood pressure 68 mm[Hg] Violet Juarez MD Work Phone: [facility] 10-05-2023 21:00-0400 Heart rate 93 /min Violet Juarez MD Work Phone: [facility] 10-05-2023 21:00-0400 Respiratory rate 16 /min Violet Juarez MD Work Phone: [facility] 10-05-2023 21:00-0400 SaO2% (BldA) [Mass fraction] 97 % Violet Juarez MD Work Phone: [facility] 10-05-2023 21:00-0400 Systolic blood pressure 114 mm[Hg] Violet Juarez MD Work Phone: [facility] 05-13-2023 11:27-0500 Body temperature 98.6 [degF] Jonathan Martinez [facility] 05-13-2023 11:27-0500 Diastolic blood pressure 78 mm[Hg] Jonathan Martinez [facility] 05-13-2023 11:27-0500 Heart rate 83 /min Jonathan Martinez [facility] 05-13-2023 11:27-0500 Respiratory rate 18 /min Jonathan Martinez [facility] 05-13-2023 11:27-0500 SaO2% (BldA) [Mass fraction] 97 % Jonathan Martinez [facility] 05-13-2023 11:27-0500 Systolic blood pressure 113 mm[Hg] Jonathan Martinez [facility] 05-11-2023 21:49-0500 Body temperature 98.06 [degF] [facility] 05-11-2023 21:49-0500 Diastolic blood pressure 84 mm[Hg] [facility] 05-11-2023 21:49-0500 Heart rate 105 /min [facility] 05-11-2023 21:49-0500 Respiratory rate 17 /min [facility] 05-11-2023 21:49-0500 SaO2% (BldA) [Mass fraction] 97 % [facility] 05-11-2023 21:49-0500 Systolic blood pressure 130 mm[Hg] [facility] 05-10-2023 11:41-0500 Body height 160 cm Chet Berumen DO Work Phone: [facility] [employer] 05-10-2023 11:41-0500 Body mass index (BMI) [Ratio] 44.29 kg/m2 Chet Berumen DO Work Phone: [facility] [employer] 05-10-2023 11:41-0500 Body temperature 97.9 [degF] Chet Berumen DO Work Phone: [facility] [employer] 05-10-2023 11:41-0500 Body weight 113.4 kg Chet Berumen DO Work Phone: [facility] 05-10-2023 11:41-0500 Diastolic blood pressure 76 mm[Hg] Chet Berumen DO Work Phone: [facility] [employer] 05-10-2023 11:41-0500 Heart rate 94 /min Chet Lachelle STEWART Work Phone: [facility] [employer] 05-10-2023 11:41-0500 Respiratory rate 18 /min Chet Berumen DO Work Phone: [facility] [employer] 05-10-2023 11:41-0500 SaO2% (BldA) [Mass fraction] 96 % Chet Berumen DO Work Phone: [facility] [employer] 05-10-2023 11:41-0500 Systolic blood pressure 146 mm[Hg] Chet Lachelle STEWART Work Phone: [facility] [employer] 09-04-2022 11:27-0400 Body height 160 cm Erin Lacy MD Work Phone: [employer] 09-04-2022 11:27-0400 Body mass index (BMI) [Ratio] 44.99 kg/m2 Erin Lacy MD Work Phone: [employer] 09-04-2022 11:27-0400 Body temperature 98.2 [degF] Erin Lacy MD Work Phone: [employer] 09-04-2022 11:27-0400 Body weight 115.21 kg Erin Lacy MD Work Phone: [employer] 09-04-2022 11:27-0400 Diastolic blood pressure 71 mm[Hg] Erin Lacy MD Work Phone: [employer] 09-04-2022 11:27-0400 Heart rate 88 /min Erin Lacy MD Work Phone: [employer] 09-04-2022 11:27-0400 Respiratory rate 18 /min Erin Lacy MD Work Phone: [employer] 09-04-2022 11:27-0400 SaO2% (BldA) [Mass fraction] 97 % Erin Lacy MD Work Phone: [employer] 09-04-2022 11:27-0400 Systolic blood pressure 124 mm[Hg] Erin Lacy MD Work Phone: [facility] [employer] [facility] 06-29-2022 09:49-0400 Diastolic blood pressure 57 mm[Hg] Todd Bing [facility] 06-29-2022 09:49-0400 Heart rate 73 /min Todd Bing [facility] 06-29-2022 09:49-0400 Mean blood pressure 76 mm[Hg] Todd Bing [facility] 06-29-2022 09:49-0400 Respiratory rate 16 /min Todd Bing [facility] 06-29-2022 09:49-0400 Systolic blood pressure 113 mm[Hg] Todd Bing [facility] 05-19-2022 19:28-0400 Body height 160 cm Erin Lacy MD Work Phone: [employer] 05-19-2022 19:28-0400 Body mass index (BMI) [Ratio] 45.17 kg/m2 Erin Lacy MD Work Phone: [employer] 05-19-2022 19:28-0400 Body weight 115.67 kg Erin Lacy MD Work Phone: [employer] 05-19-2022 19:25-0400 Body temperature 98.29 [degF] Erin Lacy MD Work Phone: [employer] 05-19-2022 19:25-0400 Diastolic blood pressure 68 mm[Hg] Erin Lacy MD Work Phone: [employer] 05-19-2022 19:25-0400 Heart rate 78 /min Erin Lacy MD Work Phone: [employer] 05-19-2022 19:25-0400 Respiratory rate 16 /min Erin Lacy MD Work Phone: [employer] 05-19-2022 19:25-0400 SaO2% (BldA) [Mass fraction] 98 % Erin Lacy MD Work Phone: [employer] 05-19-2022 19:25-0400 Systolic blood pressure 110 mm[Hg] Erin Lacy MD Work Phone: [employer] 05-11-2022 19:17-0500 Body height 160 cm Anuj Quinn MD Work Phone: [employer] 05-11-2022 19:17-0500 Body mass index (BMI) [Ratio] 45.06 kg/m2 Anuj Quinn MD Work Phone: [employer] 05-11-2022 19:17-0500 Body temperature 98.01 [degF] Anuj Quinn MD Work Phone: [employer] 05-11-2022 19:17-0500 Body weight 115.39 kg Anuj Quinn MD Work Phone: [employer] 05-11-2022 19:17-0500 Diastolic blood pressure 91 mm[Hg] Anuj Quinn MD Work Phone: [employer] 05-11-2022 19:17-0500 Heart rate 78 /min Anuj Quinn MD Work Phone: [employer] 05-11-2022 19:17-0500 Respiratory rate 18 /min Anuj Quinn MD Work Phone: [employer] 05-11-2022 19:17-0500 SaO2% (BldA) [Mass fraction] 96 % Anuj Quinn MD Work Phone: [employer] 05-11-2022 19:17-0500 Systolic blood pressure 121 mm[Hg] Anuj Quinn MD Work Phone: [employer] 10-12-2021 18:31-0400 Heart rate 93 /min Rishabh Mancini MD Work Phone: [employer] 10-12-2021 18:31-0400 Respiratory rate 16 /min Rishabh Mancini MD Work Phone: [employer] 10-12-2021 18:31-0400 SaO2% (BldA) [Mass fraction] 97 % Rishabh Mancini MD Work Phone: [employer] 10-12-2021 18:12-0400 Body height 160 cm Rishabh Mancini MD Work Phone: [employer] 10-12-2021 18:12-0400 Body mass index (BMI) [Ratio] 47.12 kg/m2 Rishabh Mancini MD Work Phone: [employer] 10-12-2021 18:12-0400 Body temperature 99.19 [degF] Rishabh Mancini MD Work Phone: [employer] 10-12-2021 18:12-0400 Body weight 120.66 kg Rishabh Mancini MD Work Phone: [employer] 10-12-2021 18:12-0400 Diastolic blood pressure 77 mm[Hg] Rishabh Mancini MD Work Phone: [facility] [employer] 10-12-2021 18:12-0400 Systolic blood pressure 126 mm[Hg] Rishabh Mancini MD Work Phone: [facility] [employer] 07-22-2021 10:38-0400 Body height 160 cm Clark [facility]oser [facility] 07-22-2021 10:38-0400 Body mass index (BMI) [Ratio] 47.63 kg/m2 Clark Moser MD Work Phone: [facility] 07-22-2021 10:38-0400 Body temperature 97.3 [degF] Clark Moser MD Work Phone: [facility] 07-22-2021 10:38-0400 Body weight 121.97 kg Clark Moser MD Work Phone: [facility] 07-22-2021 10:38-0400 Diastolic blood pressure 88 mm[Hg] Clark Moser MD Work Phone: [facility] 07-22-2021 10:38-0400 Heart rate 104 /min Clark Moser MD Work Phone: [facility] 07-22-2021 10:38-0400 Respiratory rate 18 /min Clark Moser MD Work Phone: [facility] 07-22-2021 10:38-0400 SaO2% (BldA) [Mass fraction] 95 % Clark Moser MD Work Phone: [facility] 07-22-2021 10:38-0400 Systolic blood pressure 126 mm[Hg] Clark Moser MD Work Phone: [facility] 05-15-2021 09:11-0500 Body height [address] [facility] 05-14-2021 10:41-0500 Body height 160 cm Farhat Vang MD Work Phone: [facility] 05-14-2021 10:41-0500 Body mass index (BMI) [Ratio] 44.96 kg/m2 Fahrat Vang MD Work Phone: [facility] 05-14-2021 10:41-0500 Body temperature 97.81 [degF] Farhat Vang MD Work Phone: [facility] 05-14-2021 10:41-0500 Body weight 115.12 kg Farhat Vang MD Work Phone: [facility] 05-14-2021 10:41-0500 Diastolic blood pressure 78 mm[Hg] Farhat Vang MD Work Phone: [facility] 05-14-2021 10:41-0500 Heart rate 98 /min Farhat Vang MD Work Phone: [facility] 05-14-2021 10:41-0500 Respiratory rate 18 /min Farhat Vang MD Work Phone: [facility] 05-14-2021 10:41-0500 SaO2% (BldA) [Mass fraction] 97 % Farhat Vang MD Work Phone: [facility] 05-14-2021 10:41-0500 Systolic blood pressure 124 mm[Hg] Farhat Vang MD Work Phone: [facility] 04-16-2021 10:15-0500 Body height 160 cm Farhat Vang MD Work Phone: [facility] 04-16-2021 10:15-0500 Body mass index (BMI) [Ratio] 44.44 kg/m2 Farhat Vang MD Work Phone: [facility] 04-16-2021 10:15-0500 Body temperature 98.01 [degF] Farhat Vang MD Work Phone: [facility] 04-16-2021 10:15-0500 Body weight 113.81 kg Farhat Vang MD Work Phone: [facility] 04-16-2021 10:15-0500 Diastolic blood pressure 78 mm[Hg] Farhat Vang MD Work Phone: [facility] 04-16-2021 10:15-0500 Heart rate 100 /min Farhat Vang MD Work Phone: [facility] 04-16-2021 10:15-0500 Respiratory rate 18 /min Farhat Vang MD Work Phone: [facility] 04-16-2021 10:15-0500 SaO2% (BldA) [Mass fraction] 96 % Farhat Vang MD Work Phone: [facility] 04-16-2021 10:15-0500 Systolic blood pressure 122 mm[Hg] Farhat Vang MD Work Phone: [facility] 03-23-2021 12:40-0500 Body height 160 cm Anuj Quinn MD Work Phone: [facility] [email or web address] 03-23-2021 12:40-0500 Body mass index (BMI) [Ratio] 44.46 kg/m2 Anuj Quinn MD Work Phone: [email or web address] 03-23-2021 12:40-0500 Body temperature 99.7 [degF] Anuj Quinn MD Work Phone: [employer] 03-23-2021 12:40-0500 Body weight 113.85 kg Anuj Quinn MD Work Phone: [email or web address] 03-23-2021 12:40-0500 Diastolic blood pressure 74 mm[Hg] Anuj Quinn MD Work Phone: [employer] 03-23-2021 12:40-0500 Heart rate 107 /min Anuj Quinn MD Work Phone: [email or web address] 03-23-2021 12:40-0500 Respiratory rate 16 /min Anuj Quinn MD Work Phone: [employer] 03-23-2021 12:40-0500 SaO2% (BldA) [Mass fraction] 96 % Anuj Quinn MD Work Phone: [email or web address] 03-23-2021 12:40-0500 Systolic blood pressure 131 mm[Hg] Anuj Quinn MD Work Phone: [facility] 01-15-2021 10:43-0500 Body height 160 cm Holland Ann MD Work Phone: [facility] 01-15-2021 10:43-0500 Body mass index (BMI) [Ratio] 42.55 kg/m2 Holland Ann MD Work Phone: [facility] 01-15-2021 10:43-0500 Body temperature 97.39 [degF] Holland Ann MD Work Phone: [facility] 01-15-2021 10:43-0500 Body weight 108.95 kg Holland Ann MD Work Phone: [facility] 01-15-2021 10:43-0500 Diastolic blood pressure 66 mm[Hg] Holland Ann MD Work Phone: [facility] 01-15-2021 10:43-0500 Heart rate 101 /min Holland Ann MD Work Phone: [facility] 01-15-2021 10:43-0500 SaO2% (BldA) [Mass fraction] 96 % Holland Ann MD Work Phone: [facility] 01-15-2021 10:43-0500 Systolic blood pressure 112 mm[Hg] Holland Ann MD Work Phone: [facility] 12-27-2020 18:15-0400 Body temperature 98.49 [degF] Wayne Springer MD Work Phone: [employer] Work Phone: 12-27-2020 18:15-0400 Diastolic blood pressure 77 mm[Hg] Wayne Springer MD Work Phone: [employer] Work Phone: Comment on above: Simultaneous filing. User may not have s een previous data. 12-27-2020 18:15-0400 Heart rate 98 /min Wayne Springer MD Work Phone: [employer] Work Phone: 12-27-2020 18:15-0400 Respiratory rate 20 /min Wayne Springer MD Work Phone: [employer] Work Phone: 12-27-2020 18:15-0400 SaO2% (BldA) [Mass fraction] 95 % Wayne Springer MD Work Phone: [employer] Work Phone: Comment on above: Simultaneous filing. User may not have s een previous data. 12-27-2020 18:15-0400 Systolic blood pressure 107 mm[Hg] Wayne Springer MD Work Phone: [employer] Work Phone: Comment on above: Simultaneous filing. User may not have s een previous data. 11-20-2020 21:07-0400 Body height 160 cm Anuj Quinn MD Work Phone: [employer] Work Phone: 11-20-2020 21:07-0400 Body mass index (BMI) [Ratio] 38.62 kg/m2 Anuj Quinn MD Work Phone: [employer] Work Phone: 11-20-2020 21:07-0400 Body temperature 98.6 [degF] Anuj Quinn MD Work Phone: [employer] Work Phone: 11-20-2020 21:07-0400 Body weight 98.88 kg Anuj Quinn MD Work Phone: [employer] Work Phone: 11-20-2020 21:07-0400 Diastolic blood pressure 65 mm[Hg] Anuj Quinn MD Work Phone: [employer] Work Phone: 11-20-2020 21:07-0400 Heart rate 84 /min Anuj Quinn MD Work Phone: [employer] Work Phone: 11-20-2020 21:07-0400 Respiratory rate 16 /min Anuj Quinn MD Work Phone: [employer] Work Phone: 11-20-2020 21:07-0400 SaO2% (BldA) [Mass fraction] 97 % Anuj Quinn MD Work Phone: [employer] Work Phone: 11-20-2020 21:07-0400 Systolic blood pressure 113 mm[Hg] Anuj Quinn MD Work Phone: [employer] Work Phone: 11-07-2020 16:28-0400 Body height 160 cm Nicholas Roger MD Work Phone: [employer] Work Phone: 11-07-2020 16:28-0400 Body mass index (BMI) [Ratio] 38.26 kg/m2 Nicholas Roger MD Work Phone: [employer] Work Phone: 11-07-2020 16:28-0400 Body temperature 98.8 [degF] Nicholas Roger MD Work Phone: [employer] Work Phone: 11-07-2020 16:28-0400 Body weight 97.98 kg Nicholas Roger MD Work Phone: [employer] Work Phone: 11-07-2020 16:28-0400 Diastolic blood pressure 71 mm[Hg] Nicholas Roger MD Work Phone: [employer] Work Phone: 11-07-2020 16:28-0400 Heart rate 98 /min Nicholas Roger MD Work Phone: [employer] Work Phone: 11-07-2020 16:28-0400 Respiratory rate 18 /min Nicholas Roger MD Work Phone: [employer] Work Phone: 11-07-2020 16:28-0400 SaO2% (BldA) [Mass fraction] 94 % Nicholas Roger MD Work Phone: [employer] Work Phone: 11-07-2020 16:28-0400 Systolic blood pressure 120 mm[Hg] Nicholas Roger MD Work Phone: [employer] Work Phone: 07-09-2020 10:52-0400 Body height 160 cm Zelda Bautista CNP Work Phone: [facility] 07-09-2020 10:52-0400 Body mass index (BMI) [Ratio] 41.27 kg/m2 Zelda Bautista CNP Work Phone: [facility] 07-09-2020 10:52-0400 Body weight 105.69 kg Zelda Bautista CNP Work Phone: [facility] 07-09-2020 10:52-0400 Diastolic blood pressure 70 mm[Hg] Zelda Bautista CNP Work Phone: [facility] 07-09-2020 10:52-0400 Heart rate 97 /min Zelda Bautista CNP Work Phone: [facility] 07-09-2020 10:52-0400 Systolic blood pressure 101 mm[Hg] Zelda Bautista CNP Work Phone: [facility] 06-24-2020 09:48-0400 Body mass index (BMI) [Ratio] 40.92 kg/m2 Anuj Quinn MD Work Phone: [employer] Work Phone: 06-24-2020 09:48-0400 Body temperature 97.9 [degF] Anuj Quinn MD Work Phone: [employer] Work Phone: 06-24-2020 09:48-0400 Body weight 104.78 kg Anuj Quinn MD Work Phone: [employer] Work Phone: 06-24-2020 09:48-0400 Diastolic blood pressure 64 mm[Hg] Anuj Quinn MD Work Phone: [employer] Work Phone: 06-24-2020 09:48-0400 Heart rate 120 /min Anuj Quinn MD Work Phone: [employer] Work Phone: 06-24-2020 09:48-0400 Respiratory rate 18 /min Anuj Quinn MD Work Phone: [employer] Work Phone: 06-24-2020 09:48-0400 SaO2% (BldA) [Mass fraction] 100 % Anuj Quinn MD Work Phone: [employer] Work Phone: 06-24-2020 09:48-0400 Systolic blood pressure 115 mm[Hg] Anuj Quinn MD Work Phone: [employer] Work Phone: 06-09-2020 10:44-0400 Body height 160 cm Lelo Gallegos MD Work Phone: [facility] 06-09-2020 10:44-0400 Body mass index (BMI) [Ratio] 41.27 kg/m2 Lelo Gallegos MD Work Phone: [facility] 06-09-2020 10:44-0400 Body weight 105.69 kg Lelo Gallegos MD Work Phone: [facility] 06-09-2020 10:44-0400 Diastolic blood pressure 75 mm[Hg] Lelo Gallegos MD Work Phone: [facility] 06-09-2020 10:44-0400 Heart rate 116 /min Lelo Gallegos MD Work Phone: [facility] 06-09-2020 10:44-0400 Systolic blood pressure 110 mm[Hg] Lelo Gallegos MD Work Phone: [facility] 03-26-2020 22:17-0500 Pulse (Heart Rate) 98 /min [facility] [place] 03-26-2020 21:43-0500 BP Diastolic 66 mm[Hg] [facility] [place] [facility] [place] 03-26-2020 21:43-0500 BP Systolic 99 mm[Hg] [facility] [place] [facility] [place] 03-26-2020 21:43-0500 Pulse Oximetry 95 % Brie Jorgensen [facility] , [place] 03-26-2020 20:50-0500 Respiratory Rate 16 /min [facility] [place] 03-26-2020 20:13-0500 BMI (Body Mass Index) 40.14 kg/m2 [facility] [place] 03-26-2020 20:13-0500 Body Temperature 98.2 [degF] [facility] [place] 03-26-2020 20:13-0500 Body weight 102.78 kg Brie Jorgensen [facility] , [place] 02-15-2020 18:22-0500 BMI (Body Mass Index) 39.75 kg/m2 Brie Moreno [facility] [place] 02-15-2020 18:22-0500 Body Temperature 98.6 [degF] [facility] [place] 02-15-2020 18:22-0500 Body weight 101.79 kg Brie Moreno [facility] [place] 02-15-2020 18:22-0500 BP Diastolic 78 mm[Hg] Brie Josh [facility] [place] 02-15-2020 18:22-0500 BP Systolic 127 mm[Hg] [facility] [place] 02-15-2020 18:22-0500 Height 160 cm Brie Moreno [facility] , [place] 02-15-2020 18:22-0500 Pulse (Heart Rate) 92 /min Brie Jorgensen [facility], [place] 02-15-2020 18:22-0500 Pulse Oximetry 99 % Brie Moreno [facility] , [place] 02-15-2020 18:22-0500 Respiratory Rate 20 /min B[facility], [place] 11-20-2019 18:48-0400 BP Diastolic 75 mm[Hg] [facility], [place] 11-20-2019 18:48-0400 BP Systolic 128 mm[Hg] [facility], [place] 11-20-2019 18:48-0400 Pulse (Heart Rate) 83 /min [facility], [place] 11-20-2019 18:48-0400 Pulse Oximetry 97 % [facility], [place] 11-20-2019 18:48-0400 Respiratory Rate 18 /min [facility], [place] 11-20-2019 17:00-0400 BMI (Body Mass Index) 36.31 kg/m2 [facility], [place] 11-20-2019 17:00-0400 Body Temperature 98.4 [degF] [facility], [place] 11-20-2019 17:00-0400 Body weight 92.99 kg [facility], [place] 11-03-2019 11:37-0400 BMI (Body Mass Index) 34.47 kg/m2 [facility] [place] 11-03-2019 11:37-0400 Body Temperature 98.71 [degF] [facility] 11-03-2019 11:37-0400 Body weight 88.27 kg [facility], [place] 11-03-2019 11:37-0400 BP Diastolic 66 mm[Hg] [facility], [place] 11-03-2019 11:37-0400 BP Systolic 117 mm[Hg] [facility], [place] 11-03-2019 11:37-0400 Height 160 cm [facility], [place] 11-03-2019 11:37-0400 Pulse (Heart Rate) 87 /min [facility], [place] 11-03-2019 11:37-0400 Pulse [facility]ximetry 99 % [facility] 11-03-2019 11:37-0400 Respiratory Rate 20 /min [facility] [place] 08-13-2019 19:42-0400 BMI (Body Mass Index) 31 kg/m2 [facility] 08-13-2019 19:42-0400 Body Temperature 98.6 [degF] [...] Center 06-17-2019 12:45-0400 Respiratory Rate 18 /min [facility] 06-17-2019 07:54-0400 Body Temperature 97.81 [degF] [facility] 06-17-2019 07:54-0400 BP Diastolic 66 mm[Hg] [facility] 06-17-2019 07:54-0400 BP Systolic 99 mm[Hg] [facility] 06-17-2019 07:54-0400 Pulse (Heart Rate) 82 /min [facility] 06-17-2019 07:54-0400 Pulse Oximetry 94 % [facility] 06-14-2019 08:15-0400 BMI (Body Mass Index) 32.92 kg/m2 [facility] 06-14-2019 08:15-0400 Body weight 81.65 kg [facility] 06-14-2019 08:15-0400 Height 157.5 cm [facility] 06-14-2019 04:20-0400 Pulse (Heart Rate) 83 /min [facility] [place] 06-14-2019 04:05-0400 BP Diastolic 58 mm[Hg] [facility] [place] 06-14-2019 04:05-0400 BP Systolic 95 mm[Hg] [facility] [place] 06-14-2019 04:05-0400 Pulse Oximetry 95 % [facility]rie [facility] [place] 06-14-2019 01:12-0400 Respiratory Rate 18 /min [facility] [place] 06-14-2019 00:10-0400 Body Temperature 100.51 [degF] [facility] [place] 06-13-2019 22:00-0400 BMI (Body Mass Index) 32.31 kg/m2 [facility] [place] 06-13-2019 22:00-0400 Body weight 82.74 kg Brei [facility] [place] 06-13-2019 22:00-0400 Height 160 cm Brie [facility] [place] 04-28-2019 19:58-0500 Body Temperature 98.8 [degF] [facility]lyn [facility] [place] 04-28-2019 19:58-0500 BP Diastolic 70 mm[Hg] [facility] [place] 04-28-2019 19:58-0500 BP Systolic 98 mm[Hg] [facility] [place] 04-28-2019 19:58-0500 Pulse (Heart Rate) 119 /min [facility]lyn [facility] [place] 04-28-2019 19:58-0500 Pulse Oximetry 100 % [facility]lyn [facility] [place] 04-28-2019 19:58-0500 Respiratory Rate 30 /min [facility] [place] 04-28-2019 19:54-0500 BMI (Body Mass Index) 30.65 kg/m2 Roslyn Jorgensen [facility] [place] 04-28-2019 19:54-0500 Body weight 78.47 kg Roslyn [facility] [place] [facility] [place] 04-28-2019 19:54-0500 Height 160 cm [facility] [place] Encounters Encounter Date Encounter Type Care Provider Facility Start: 11-09-2023 End: 11-09-2023 ambulatory AMRK ELIANA Not Available Start: 10-26-2023 End: 10-26-2023 ambulatory MARK ELIANA Not Available Start: 10-05-2023 End: 10-05-[address] [facility] Start: 10-05-2023 End: 10-05-2023 Subsequent hospital visit by physician Violet Juarez MD Work Phone: [id number] Delivery Start: 10-05-2023 End: 10-05-2023 Emergency department patient visit VIOLET Ramos [facility] Start: 10-05-2023 End: 10-05-2023 Emergency department patient visit LINDA SHEPPARD [facility] Start: 09-12-2023 End: 09-12-2023 ambulatory MARK ELIANA Not Available Start: 08-16-2023 End: 08-16-2023 ambulatory MARK ELIANA Not Available Start: 07-26-2023 End: 07-26-[address] [facility] Start: 07-19-2023 End: 07-19-2023 ambulatory MARK ELIANA Not Available Start: 06-21-2023 End: 06-21-2023 ambulatory MARK ELIANA Not Available Start: 05-20-2023 End: 05-20-2023 ambulatory MARK ELIANA Not Available Start: 05-13-2023 End: 05-13-2023 Emergency department patient visit Jonathan Martinez Facility:[facility] Start: 05-13-2023 End: 05-13-2023 Emergency department patient visit Jonathan Martinez [facility] Start: 05-11-2023 End: 05-12-2023 Emergency department patient visit Reginaparker Britton Donnie Facility:[facility] Start: 05-11-2023 End: 05-11-2023 Emergency department patient visit Zac Tobi Donnie [facility] Start: 05-10-2023 End: 05-10-2023 Emergency department patient visit LINDA SHEPPARD [facility] Start: 05-10-2023 End: 05-10-2023 Emergency department patient visit Chet Berumen DO Work Phone: [facility] Comment on above: Toothache (Primary D x); Dental decay Start: 12-27-2022 End: 12-27-2022 ambulatory MARK DUMONT [facility] Start: 11-23-2022 End: 11-23-2022 ambulatory MARK DUMONT [facility] Start: 09-04-2022 End: 09-04-2022 Emergency department patient visit Erin Lacy MD Work Phone: [facility] Comment on above: Sprain of right ankl e, unspecified ligament, initial encounter (Primary Dx) Start: 06-29-2022 End: 06-30-[address] MARK DUMONT . Facility: Start: 06-29-2022 End: 06-30-2022 ambulatory Linda Sheppard Facility:[facility] Start: 06-29-2022 End: 06-29-2022 Pain Management Todd Smart [facility] Start: 06-14-2022 End: 06-14-[address] MARK DUMONT . Facility: Start: 05-19-2022 End: 05-19-2022 Emergency department patient visit Erin Lacy MD Work Phone: [facility] Comment on above: Dry socket (Primary Dx) Start: 05-11-2022 End: 05-11-2022 Emergency department patient visit Anuj Quinn MD Work Phone: [facility] Comment on above: Masseter muscle spas m (Primary Dx); Other acute postprocedural pain Start: 03-30-[address] MARK DUMONT . Facili ty:[facility] Start: 03-29-2022 End: 03-29-2022 Subsequent hospital visit by physician [facility] Start: 10-12-2021 End: 10-12-2021 Emergency department patient visit Rishabh Mancini MD Work Phone: [facility] Comment on above: Acute bronchitis, un specified organism (Primary Dx) Start: 07-22-2021 End: 07-22-2021 Emergency department patient visit Clark Moser MD Work Phone: [facility] Comment on above: Acute pharyngitis, u nspecified etiology (Primary Dx) Start: 07-07-2021 ambulatory BRIE ROCA [facility] Start: 06-18-2021 ambulatory FARHAT DAWIT [facility] Start: 06-17-2021 End: 06-18-2021 ambulatory [facility] Start: 05-15-2021 End: 05-19-2021 ambulatory [facility] Start: 05-15-2021 End: 05-15-2021 Nutrition therapy Farhat Vang MD Work Phone: [facility] Comment on above: Morbid obesity with body mass index (BMI) of 40.0 or higher (HCC) Start: 05-14-2021 End: 05-18-2021 [facility] Start: 05-14-2021 End: 05-14-2021 Office outpatient visit 15 minutes Farhat Vang MD Work Phone: [facility] Comment on above: Anxiety and depressi on (Primary Dx); At risk for obstructive sleep apnea; Chronic bilateral low back pain without sciatica; Hepatitis C antibody positive in blood; Body mass index 40.0-44.9, adult (HCC); History of opioid abuse (HCC) Start: 04-16-2021 End: 04-20-2021 [facility] Start: 04-16-2021 End: 04-16-2021 Initial preventive medicine new pt age 18-39yrs Farhat Vang MD Work Phone: [facility] Comment on above: Encounter for [facility] adult medical examination with abnormal findings (Primary Dx); Anxiety and depression; History of opioid abuse (HCC); Morbid obesity with body mass index (BMI) of 40.0 or higher (HCC) Start: 04-16-2021 End: 04-16-2021 Patient encounter status Farhat Vang MD Work Phone: [facility] Start: 03-23-2021 End: 03-23-2021 Emergency department patient visit Anuj Quinn MD Work Phone: [facility] Comment on above: COVID-19 (Primary Dx ); Omphalitis in adult Start: 02-16-2021 End: 02-20-2021 ambulatory [facility] Start: 02-12-2021 End: 02-16-2021 ambulatory PHYSICIAN [facility] Start: 02-10-2021 End: 02-14-2021 ambulatory [facility] Start: 02-02-2021 End: 02-06-2021 ambulatory PHYSICIAN [facility] Start: 01-15-2021 Documentation procedure Jeimy goodman [facility] Start: 01-15-2021 End: 01-15-2021 ambulatory HOLLAND WHIPPLE SETH [facility] Ambulatory Start: 01-15-2021 End: 01-15-2021 Office outpatient new 30 minutes Holland Ann MD Work Phone: [facility] Comment on above: Hemorrhoids, unspeci fied hemorrhoid type Start: 12-29-2020 End: 01-02-2021 ambulatory PHYSICIAN [facility] Start: 12-27-2020 End: 12-27-2020 Emergency department patient visit Wayne Springer MD Work Phone: [facility] Comment on above: Viral syndrome (Prim prakash Dx) Start: 11-20-2020 End: 11-20-2020 Emergency department patient visit Anuj Quinn MD Work Phone: [facility] Comment on above: Strain of rhomboid m uscle, initial encounter; Chest wall muscle strain, initial encounter Start: 11-07-2020 End: 11-07-2020 Emergency department patient visit Nicholas Roger MD Work Phone: [facility] Comment on above: Viral URI (Primary D x) Start: 08-28-2020 End: 08-30-2020 Evaluation and management of inpatient ROSLYN HERNANDEZ [facility]RA[facility] Start: 08-25-2020 End: 08-25-2020 ambulatory PHYSICIAN [facility] Start: 07-29-2020 End: 08-02-2020 ambulatory PHYSICIAN [facility] Start: 07-22-2020 End: 07-26-2020 ambulatory LELO ADAMS GALLEGOS [facility] Start: 07-22-2020 End: 07-22-2020 Telemedicine consultation with patient Lelo Gallegos MD Work Phone: [facility] Comment on above: Diet controlled gest ational diabetes mellitus (GDM) in third trimester Start: 07-10-2020 ambulatory LELO GALLEGOS [facility]ulatory Start: 07-09-2020 End: 07-09-2020 ambulatory ZELDA BAUTISTA [facility] Start: 07-09-2020 End: 07-09-2020 Office outpatient visit 15 minutes Zelda Bautista CNP Work Phone: [facility] Comment on above: Diet controlled gest ational diabetes mellitus (GDM) in third trimester (Primary Dx) Start: 06-24-2020 End: 06-24-2020 Emergency department patient visit Anuj Quinn MD Work Phone: [facility] Comment on above: Acute frontal sinusi tis, recurrence not specified (Primary Dx) Start: 06-10-2020 End: 06-10-2020 Nutrition therapy Lelo Gallegos Work Phone: [facility] Comment on above: Diet controlled gest ational diabetes mellitus (GDM) in second trimester Start: 06-09-2020 End: 06-09-2020 Office outpatient new 30 minutes Roslyn Stevenson MD Work Phone: [facility] Comment on above: Diet controlled gest ational diabetes mellitus (GDM) in second trimester Start: 05-27-2020 End: 05-31-2020 ambulatory PHYSICIAN [facility] Start: 05-21-2020 End: 05-25-2020 ambulatory PHYSICIAN [facility] Start: 03-26-2020 End: 03-26-2020 Emergency department patient visit Brie Moreno Work Phone: [facility] Comment on above: Atypical pneumonia ( Primary Dx) Start: 02-15-2020 End: 02-15-2020 Emergency department patient visit Brie Moreno Work Phone: [facility] Comment on above: Pain, dental (Primar y Dx); Acute gingivitis; Alveolar osteitis Start: 11-20-2019 End: 11-20-2019 Emergency department patient visit Anuj Quinn Work Phone: [facility] Comment on above: Bacterial vaginosis (Primary Dx); Trichimoniasis; Furuncle of left axilla Start: 11-03-2019 End: 11-03-2019 Emergency department patient visit Wayne Maryuri Springer Work Phone: [facility] Comment on above: Poison arabella (Primary Dx) Start: 08-20-2019 End: 08-21-2019 Patient encounter procedure HODA MADERA [facility] Start: 08-20-2019 End: 08-20-2019 Subsequent hospital visit by physician [facility] Start: 08-13-2019 End: 08-13-2019 Emergency department patient visit Christian Tuckergaldino Martinez Work Phone: [facility] Comment on above: Heroin abuse (HCC) ( Primary Dx) Start: 06-20-2019 End: 06-20-2019 Patient encounter procedure Alisa Analisatramaine Palencia Work Phone: [facility] Comment on above: Hepatitis C virus in fection without hepatic coma, unspecified chronicity (Primary Dx) Start: 06-18-2019 End: 06-18-2019 Documentation procedure Taryn Torres [facility] Start: 06-18-2019 Follow-up encounter Taryn bear [facility] Comment on above: Transition Of Care Start: 06-18-2019 End: 06-18-2019 Patient encounter procedure Taryn Torres [facility] Start: 06-14-2019 End: 06-17-2019 Evaluation and management of inpatient [facility] Work Phone: [facility] Comment on above: Elevated LFTs; IVDA (intravenous drug abuse) complicating (HCC) Start: 06-13-2019 End: 06-14-2019 Emergency department patient visit Brie Moreno Work Phone: [facility] Comment on above: Abdominal pain, unsp ecified abdominal location (Primary Dx); Urinary tract infection with hematuria, site unspecified; Viral hepatitis without hepatic coma, unspecified chronicity, unspecified viral hepatitis type; Polysubstance abuse (HCC); Hyperbilirubinemia Start: 04-28-2019 End: 04-28-2019 Emergency department patient visit Roslyn Keating Work Phone: [facility] Comment on above: Accidental overdose of heroin, initial encounter (HCC) (Primary Dx) Start: 12-20-2016 End: 01-02-2020 Cancer cervix - screening done Lelo Gallegos MD Work Phone: [facility] Start: 12-20-2016 End: 01-02-2020 Encounter for gynecological examination (general) (routine) without abnormal findings Jeimy Tan LPN [facility] Procedures Date Procedure Procedure Detail Performing Clinician Start: 09-04-2022 Radex ankle complete minimum 3 views Erin Lacy MD Work Phone: Start: 09-04-2022 Urine test visual color cmprsn randy Lacy MD Work Phone: Start: 05-11-2022 Ct maxillofacial w/o contrast material Anuj Quinn MD Work Phone: Start: 05-11-2022 Urine test visual color dianan randy Quinn MD Work Phone: Start: 03-29-2022 [...] Start: 06-14-2019 Manual Differential panel - Blood Inrda Pruitt Work Phone: Start: 06-14-2019 Red blood cell morphology Indra Pruitt Work Phone: Start: 06-14-2019 Salicylates [Mass/vo lume] in Serum or Plasma Indra Handylivan Work Phone: Start: 06-14-2019 US scan of upper abdomen Indra Pruitt Work Phone: Start: 06-13-2019 Ct abdomen & pelvis w/contrast material Kavitha Strus Work Phone: Start: 06-13-2019 Urinalysis microscopic only [...] of 2) Shingles Vaccine (1 of 2) [facility] [place], [place] Start: 12-29-2025 Screening for malignant neoplasm of cervix Pap Smear [facility] Start: 10-31-2024 Screening for malignant neoplasm of cervix Pap Smear [facility] Start: 12-30-2023 Screening for malignant neoplasm of cervix [facility] Start: 11-11-2023 Respiratory Syncytial Virus (RSV) or age 60 yrs+ (1 - Risk 1-dose series) Respiratory Syncytial Virus (RSV) or age 60 yrs+ (1 - Risk 1-dose series) [facility] Start: 11-10-2023 End: 11-10-2023 Patient encounter procedure 11/10/2023 10:00 AM EDT [facility]ine [facility] [address] [place] [address] [facility] Start: 10-27-2023 End: 10-27-2023 Patient encounter procedure 10/27/2023 10:00 AM EDT Routine [facility] [address] [place] [address] [facility] Start: 10-13-2023 End: 10-13-2023 Patient encounter procedure 10/13/2023 10:00 AM EDT Routine [facility] [address] [place] [address] Return in about 2 weeks (around 10/04/2023) for twins, dopplers, growth, transvag. [facility] Comment on above: Return in about 2 weeks (around ) for twins, dopplers, growth, transvag. Start: 10-07-2023 Tdap Vaccine during Tdap Vaccine during [facility] Start: 10-06-2023 Influenza vaccination Flu vaccine (#1) [facility] Start: 10-31-2022 Screening for malignant neoplasm of cervix [facility] Work Phone: Start: 10-05-2022 Influenza vaccination Flu vaccine (#1) [facility] Start: 04-16-2022 History and physical examination, annual for health maintenance Wellness Visit [facility] Start: 02-13-2022 Depression Remission Assessment (PHQ9) Depression Remission Assessment (PHQ9) [facility] Start: 12-29-2021 History and physical examination, annual for health maintenance Wellness Visit [facility] Start: 11-12-2021 End: 11-12-2021 Patient encounter procedure 11/12/2021 Office Visit Primary Care Farhat Vang MD [address] [id number] [facility] Start: 11-05-2021 Influenza vaccination [facility] Start: 10-05-2021 Influenza vaccination Flu vaccine (#1) ALEXANDRA PANIAGUA [facility] Start: 06-26-2021 End: 06-26-2021 Nutrition therapy 06/26/2021 Nutrition Farhat Flannery MD [address] [facility] [address] [place] [address] [facility] Start: 05-15-2021 End: 05-15-2021 Nutrition therapy 05/15/2021 Nutrition Nutrition Angelito Harvey RD [facility] Start: 05-14-2021 End: 05-14-2021 Patient encounter procedure 05/14/2021 Office Visit Primary Care Farhat Vang MD [address] [facility] [address] [place] [address] [facility] Start: 03-17-2021 Depression screening using PHQ-9 (Patient Health Questionnaire 9) score Depression Screening (PHQ9) [facility] Start: 01-15-2021 Depression Remission Assessment (PHQ9) Depression Remission Assessment (PHQ9) [facility] Start: 01-09-2021 Hemoglobin A1c measurement A1C [facility] Start: 12-09-2020 HbA1c (Bld) [Mass fraction] A1C [facility] Start: 12-09-2020 Hemoglobin A1c measurement A1C [facility] Start: 11-05-2020 Influenza vaccination [facility] Start: 10-31-2020 History and physical examination, annual for health maintenance Wellness Visit [facility] Start: 08-28-2020 End: 08-28-2020 Admission to same day surgery center 08/28/2020 Surgery Obstetrics Roslyn Stevenson MD [address] [place] [address] [phone] SECTION [facility] Comment on above: SECTION Start: 08-28-2020 Subsequent hospital visit by physician 08/28/2020 Hospital Encounter Obstetrics Roslyn Stevenson MD [address] [place] [address] [phone] [facility] Start: 08-25-2020 End: 08-25-2020 Office Visit 08/25/2020 Office Visit Endocrinology Zelda Bautista, MARK [address] [place] [address] [phone] [facility] Start: 07-31-2020 End: 07-31-2020 Office Visit 07/31/2020 Office Visit Endocrinology Benito Krueger, MARK [address] [place] [address] [phone] [facility] Start: 07-29-2020 End: 07-29-2020 Patient encounter procedure 07/29/2020 Routine Obstetrics and Gynecology Regla Dias, CN [address] [place] [phone] [facility] Start: 07-22-2020 End: 07-22-2020 Telemedicine consultation with patient 07/22/2020 Telemedicine Nutrition Lelo Gallegos MD [address] [place] [address] [phone] Neris Ulloa [facility] Nutritional Services Start: 07-17-2020 End: 07-17-2020 Patient encounter procedure 07/17/2020 Routine Obstetrics and Gynecology Yvonne Santos MD [address] [place] [phone] [facility] Start: 07-09-2020 End: 07-09-2020 Office Visit 07/09/2020 Office Visit Endocrinology Zelda Bautista, MARK [address] [place] [address] [phone] [facility] Start: 07-04-2020 End: 07-04-2020 Patient encounter procedure 07/04/2020 Routine Obstetrics and Gynecology Radha Pantoja MD [address] [place] [phone] [facility] Start: 06-26-2020 End: 06-26-2020 Patient encounter procedure 06/26/2020 Office Visit Endocrinology Janie Chen PA-C [facility] [place] [address] [phone] [facility] Start: 06-24-2020 End: 06-24-2020 Nutrition [facility] Start: 06-19-2020 End: 06-19-2020 Routine 06/19/2020 Routine Obstetrics and Gynecology Regla Dias CNM [address] [place] [phone] [facility] Start: 05-17-2020 Depression screening using PHQ-9 (Patient Health Questionnaire 9) score Depression Screening (PHQ9) [facility] Start: 2020 Screening for malignant neoplasm of cervix [facility] Start: 02-26-2020 End: 02-26-2020 Initial 02/26/2020 Initial Obstetrics and Gynecology Jai Huerta MD [address] [place], [place] [id number] [facility] Start: 11-06-2019 Influenza vaccination [place] Start: 11-06-2019 Influenza vaccination given [facility] Start: 08-06-2019 Screening for malignant neoplasm of cervix Pap Smear [facility] Start: 06-20-2019 End: 06-20-2019 Office Visit 06/20/2019 Office Visit Transition of Care Alisa Palencia, RAILWAY SWITCHMAN [address] [facility] [address] [place] [address] [phone] [facility] Start: 11-05-2018 Influenza vaccination Flu vaccine (#1) [place] Start: 11-05-2018 Influenza vaccination given Sequential Influenza Vaccine (#1) [facility] Start: 03-21-2015 Cervical cancer screen Cervical cancer screen [place] Start: 03-21-2015 Screening for malignant neoplasm of cervix Cervical cancer screen [place] Start: 04-05-2014 Screening for malignant neoplasm of cervix Pap smear [facility] Start: 2009 DTaP/Tdap/Td vaccine (1 - Tdap) DTaP/Tdap/Td vaccine (1 - Tdap) [place] Start: 2009 Hepatitis B vaccine (1 of 3 - Risk 3-dose series) Hepatitis B vaccine (1 of 3 - Risk 3-dose series) [facility] Work Phone: Start: 2008 Hepatitis C screening Hepatitis C screen [facility] Start: 2006 COVID-19 Vaccine (1) COVID-19 Vaccine (1) [facility] Start: 2005 HIV screen HIV screen [place] Start: 2005 HIV screening HIV screen [facility] Start: 2002 COVID-19 Vaccine (1) COVID-19 Vaccine (1) [facility] Start: 2002 Depression Monitoring Depression Monitoring [facility] Start: 2001 DTaP/Tdap/Td vaccine (1 - Tdap) DTaP/Tdap/Td vaccine (1 - Tdap) [place] Start: 2001 DTaP/Tdap/Td vaccine (5 - Tdap) DTaP/Tdap/Td vaccine (5 - Tdap) [facility] Start: 2000 Albumin DL <= 20 mg/L (U) [Mass/Vol] Urine Microalbumin [facility] Start: 2000 Diabetic foot examination Foot Exam [facility] Start: 2000 Microalbumin measurement, urine, quantitative Urine Microalbumin [facility] Start: 2000 Ophthalmic examination and evaluation Ophthalmology Exam [facility] Start: 1996 Pneumococcal 0-64 years Vaccine (1 of 1 - PPSV23) Pneumococcal 0-64 years Vaccine (1 of 1 - PPSV23) [place] Start: 1996 Pneumococcal Vaccine: Ped or At-Risk (1 of 2 - PPSV23) Pneumococcal Vaccine: Ped or At-Risk (1 of 2 - PPSV23) [facility] Start: 1995 COVID-19 Vaccine (1) COVID-19 Vaccine (1) [facility] Start: 1993 History and physical examination, annual for health maintenance Wellness Visit [facility] Start: 1991 Varicella vaccine (1 of 2 - 2-dose childhood series) Varicella vaccine (1 of 2 - 2-dose childhood series) [facility] Start: 1990 COVID-19 Vaccine (#1) COVID-19 Vaccine (#1) [facility] Start: 1990 Hepatitis B vaccine (1 of 3 - 3-dose series) Hepatitis B vaccine (1 of 3 - 3-dose series) [facility] Start: 1990 Hepatitis C screening Hepatitis C screen [facility] Start: 1990 Tetanus vaccination Tetanus: Every 10yrs [facility] Anti smooth muscle antibody IgA level Anti-Smooth Muscle Antibody Lab Add-On 06/15/2019 1:50 PM EDT [facility] Antimitochondrial antibody titer Antimitochondrial Antibody Lab Add-On 06/15/2019 1:50 PM EDT [facility] End: 11-20-2019 C.trachomatis N.gonorrhoeae DNA, Urine C.trachomatis N.gonorrhoeae DNA, Urine Microbiology STAT One Time for 1 Occurrences starting 11/20/2019 until 11/20/2019 [place] Comment on above: One Time for 1 Occurrences starting 11/05 until 11/20/2019 C.trachomatis N.gonorrhoeae DNA, Urine C.trachomatis N.gonorrhoeae DNA, Urine Microbiology Stat [employer] Label print 11/20/2019 5:55 PM EDT [place] End: 03-26-2020 Covid-19 Ambulatory Covid-19 Ambulatory Lab Routine Once for 1 Occurrences starting 03/26/2020 until 03/26/2020 [place] Comment on above: Once for 1 Occurrences starting 03/26/19 21 until 03/26/2020 Covid-19 Ambulatory Covid-19 Amb ulatory Lab Routine 03/26/2020 8:44 PM EST [place] End: 06-13-2019 Culture, Blood 1 Culture, Blood 1 Microbiology STAT One Time for 1 Occurrences starting 06/13/2019 until 06/13/2019 [facility], [place] Comment on above: One Time for 1 Occurrences starting 10/2019 until 06/13/2019 Culture, Blood 1 [facility] [place] End: 03-23-2021 Culture, Wound [facility] Work Phone: Comment on above: One Time for 1 Occurrences starting 03/07 until 03/23/2021 Cytomegalovirus DNA assay CMV DN A Detection and Quant, Blood Lab Routine 06/15/2019 1:50 PM EDT [facility] Kirsten-Hazel Virus P CR, Quantitative Kirsten-Hazel Virus PCR, Quantitative Lab Routine 06/15/2019 1:50 PM EDT [facility] End: 04-16-2022 Hemoglobin A1c/Hemoglobin.total in Blood Hemoglobin A1c Lab Routine Encounter for general adult medical examination with abnormal findings 1 Occurrences starting 04/16/2021 until 04/16/2022 [facility] Work Phone: Comment on above: 1 Occurrences starting 04/16/2021 until 04/16/2022 Hemoglobin A1c/Hemoglobin.total in Blood Hemoglobin A1c Lab Routine Encounter for general adult medical examination with abnormal findings 04/16/2021 10:58 AM [facility] End: 04-16-2022 Hepatitis C antibody measurement Hepatitis C Antibody Lab Routine Encounter for general adult medical examination with abnormal findings 1 Occurrences starting 04/16/2021 until 04/16/2022 [facility] Comment on above: 1 Occurrences starting 04/16/2021 until 04/16/2022 Hepatitis C antibody measurement Hepatitis C Antibody Lab Routine Encounter for general adult medical examination with abnormal findings 04/16/2021 10:58 AM [facility] MDI Treatment MDI Treatment Re spiratory Care Routine Every 6hr As Needed until discontinued starting 03/26/2020 [facility] [place] Comment on above: Every 6hr As Needed until discontinued s tarting 03/26/2020 Nonrebreather mask oxygen Nonreb reather mask oxygen Respiratory Care Routine As Needed until discontinued starting 10/05/2023 ALEXANDRA PANIAGUA [facility] Comment on above: As Needed until discontinued starting Nuclear Ab IF (S) [Titer] KENIA La b Add-On 06/15/2019 1:50 PM EDT [facility] End: 06-24-2020 Urinalysis, reflex to microscopic Urinalysis, reflex to microscopic Lab STAT One Time for 1 Occurrences starting 06/24/2020 until 06/24/2020 [facility] Work Phone: Comment on above: One Time for 1 Occurrences starting 06/06 until 06/24/2020 End: 05-14-2022 XR Lumbar Spine Complete AP/Lat w Obls XR Lumbar Spine Complete AP/Lat w Obls Imaging Routine Chronic bilateral low back pain without sciatica 1 Occurrences starting 05/14/2021 until 05/14/2022 [facility] Work Phone: Comment on above: 1 Occurrences starting 05/14/2021 until 05/14/2022 Payers Date Payer Category Payer Medicaid [employer] [id number] 2021-Present [phone] [address] [place] [address] [id number]. 7.3.001819.315 2021 Unknown [id number] 1.2.840.920930.1.13.239.2. 7.3.799913.315 2017 Medicaid [id number] 1.2.840.191079.1.13.385.2. 7.3.506913.315 2012 Medicaid [id number] 1.2.840.017867.1.13.239.2. 7.3.394202.315 2012 Medicaid [id number] 2008 Private Health Insurance [id number] 1990 Unknown [id number] 2.16.840.1.851986.3.579.2. 173 1990 Unknown [id number] 2.16.840.1.597469.3.579.2. 900 1990 Unknown [id number] 2.16.840.1.595774.3.579.2. 900 1990 Unknown [id number] 2.16.840.1.592488.3.579.2. 900 1990 Unknown [id number] 2.16.840.1.502235.3.579.2. 900 1990 Unknown [id number] 2.16.840.1.760442.3.579.2. 900 1990 Unknown [id number] 2.16.840.1.958198.3.579.2. 900 1990 Unknown [id number] 2.16.840.1.896642.3.579.2. 900 1990 Unknown [id number] 2.16.840.1.410420.3.579.2. 903 1990 Unknown [id number] 2.16.840.1.178595.3.579.2. 903 1990 Unknown [id number] 2.16.840.1.476808.3.579.2. 903 1990 Unknown [id number] 2.16.840.1.451443.3.579.2. 903 1990 Unknown [id number] 2.16.840.1.660709.3.579.2. 903 1990 Unknown [id number] 2.16.840.1.224383.3.579.2. 903 1990 Unknown [id number] 2.16.840.1.943571.3.579.2. 903 1990 Unknown [id number] 2.16.840.1.138510.3.579.2. 903 1990 Unknown [id number] 2.16.840.1.333489.3.579.2. 903 1990 Unknown [id number] 2.16.840.1.004103.3.579.2. 903 1990 Unknown [id number] 2.16.840.1.227615.3.579.2. 903 1990 Unknown [id number] 2.16.840.1.631759.3.579.2. 903 1990 Unknown [id number] 2.16.840.1.960279.3.579.2. 903 1990 Unknown [id number] 2.16.840.1.945558.3.579.2. 903 1990 Unknown [id number] 2.16.840.1.377367.3.579.2. 903 1990 Unknown [id number] 2.16.840.1.808271.3.579.2. 593 1990 Unknown [id number] 2.16.840.1.371218.3.579.2. 593 1990 Unknown [id number] 2.16.840.1.782626.3.579.2. 593 1990 Unknown [id number] 2.16.840.1.242631.3.579.2. 593 1990 Unknown [id number] 2.16.840.1.371533.3.579.2. 727 1990 Unknown [id number] 2.16.840.1.056128.3.579.2. 727 1990 Unknown [id number] 2.16.840.1.865327.3.579.2. 727 1990 Unknown [id number] 2.16.840.1.355895.3.579.2. 174 1990 Unknown [id number] 2.16.840.1.190961.3.579.2. 174 1990 Unknown [id number] 2.16.840.1.329041.3.579.2. 174 1990 Unknown [id number] 2.16.840.1.926685.3.579.2. 174 1990 Unknown [id number] 2.16.840.1.136715.3.579.2. 174 1990 Unknown [id number] 2.16.840.1.541252.3.579.2. 175 1990 Unknown [id number] 2.16.840.1.568851.3.579.2. 175 1990 Unknown [id number] 2.16.840.1.657980.3.579.2. 175 1990 Unknown [id number] 2.16.840.1.199796.3.579.2. 1259 1990 Unknown [id number] 2.16.840.1.775474.3.579.2. 1259 1990 Unknown [id number] 2.16.840.1.821496.3.579.2. 1259 1990 Unknown [id number] 2.16.840.1.652783.3.579.2. 9 1990 Unknown [id number] 2.16.840.1.251475.3.579.2. 1259 1990 Unknown [id number] 2.16.840.1.416861.3.579.2. 9 1990 Unknown [id number] 2.16.840.1.142436.3.579.2. 1259 1959 Unknown [id number] Social History Date Type Detail Facility Start: 04-28-2019 End: 11-03-2019 Tobacco smoking status NHIS Current every day smoker [place] End: 02-15-2020 History of tobacco use Cigarette Smoker [place] Start: 04-28-2019 End: 10-05-2023 Cigarettes smoked current (pack per day) - Reported ALEXANDRA PANIAGUA [facility] Start: 04-28-2019 Alcohol intake Current drinke r of alcohol (finding) [place] Start: 1990 Sex Assigned At Not on file M [place] Start: 06-13-2019 End: 10-05-2023 Alcohol intake Ex-drinker (finding) [facility] [place] Exposure to SARS-CoV -2 (event) Unable to assess [facility], [place] Start: 05-18-2019 End: 04-16-2021 History SDOH Alcohol Frequency 3 [facility] Start: 05-18-2019 End: 07-16-2020 History SDOH Alcohol Std Drinks 5 [facility] Start: 05-04-2021 End: 05-19-2022 Exposure to SARS-CoV-2 (event) Not sure [facility] Start: 11-20-2019 End: 07-26-2023 Tobacco use and exposure Never used [facility] Start: 06-09-2020 End: 07-26-2023 Tobacco smoking status NHIS Former smoker [facility] End: 02-15-2020 History of tobacco use Current smoker [facility] Start: 12-09-2019 [facility] Start: 04-16-2021 History SDOH Social Connections Get Together 4 [facility] Start: 04-16-2021 History SDOH Food Worry 1 [facility] Start: 09-04-2022 End: 10-05-2023 Sex Assigned At Female [facility] Start: 09-04-2022 History SDOH Alcohol Frequency 2 [facility] How often to you hav e a drink containing alcohol? Monthly or less [facility] Average Number of Drinks Not on file [facility] How often to you hav e a drink containing alcohol? Never [facility] Procedure Code Equipment Code Equipment Origin al Text Equipment Identifier Dates Use to check BG QID Dx O24.14 . [id number] Start: 06-09-2020 Use as instructe d to check BG QID Dx O24.14 . [id number] Start: 06-09-2020 End: 06-11-2020 use to test BLOO D SUGAR FOUR TIMES DAILY [id number] Start: 06-09-2020 Goals Date Patient Goal Desired Activity /State Functional Status Date Assessment Result Facility 05-13-2023 Functional Status N/A [facility] 05-11-2023 Functional Status N/A [facility] 06-29-2022 Functional Status N/A [facility] Clinical Notes 06-09-2020 to 05-13-2023 Note Date [...] Follow these instructions at home: Medicines Take nehv-oix-bdnqnud and prescription medicines only as told by [...] provider. Document Revised: 04/30/2021 Document Reviewed: 04/30/2021 [employer] Patient Education 2022 [employer]. Follow Up Care 05/13/2023 11:20:07 With:[facility] Address: [address] [place] [address] [place] [address] Business (1) When:05/16/2023 12:45:32 Comments:Dentistry follow-up [facility] 05-12-2023 Hospital Discharg e instructions Patient Education 05/11/2023 23:33:09 Dental Pain, Nbbx-wq-Omqb Dental Pain Dental pain is often a [...] Follow these instructions at home: Medicines Take izjh-cwm-ttjmijn and prescription medicines only as told by [...] damage to the area. Brushing your teeth [place] your teeth twice a day using a [...] only when you eat or drink. Take kukk-dex-tmqcous and prescription medicines only as told by your dentist. Watch your dental pain for any changes. Let your dentist know if symptoms get worse. This information is not intended to replace advice given to you by your health care provider. Make sure you discuss any questions you have with your health care provider. Document Revised: 11/26/2020 Document Reviewed: 11/26/2020 [employer] Patient Education 2022 [employer]. Follow Up Care 05/11/2023 21:26:40 With:Linda Sheppard DO Address: Roel Julien, [facility] C, [facility] [address] [place] [address]- When:05/14/2023 [facility] 05-11-2023 Evaluation + Plan note Extrac roxann from: Title:ED Note Author:Violet Walters PA-C ate:05/11/23 1. Pain, dental (K08.89: Oth er specified disorders of teeth and supporting structures) Ordered: amoxicillin-clavulanate, = 1 tab(s), Oral, q12hr, X 7 day(s), # 14 tab(s), Refills(s) 0, Pharmacy: [facility] #16, 160, cm, 05/11/23 21:53:00 EST, Height/Length Dosing, 110, kg, 05/11/23 21:53:00 EST, Weight Dosing chlorhexidine topical, 0.018 gm, 15 mL, Oral, BID, 480 mL, Refill(s) 0, (swish and spit; do not swallow), [facility] #[facility], 160, cm, 05/11/23 21:53:00 EST, Height/Length Dosing, 110, kg, 05/11/23 21:53:00 EST, Weight Dosing 2. Infected dental caries (K02.9: Dental caries, unspecified) Ordered: amoxicillin-clavulanate, = 1 tab(s), Oral, q12hr, X 7 day(s), # 14 tab(s), Refills(s) 0, Pharmacy: [facility] #16, 160, cm, 05/11/23 21:53:00 EST, Height/Length Dosing, 110, kg, 05/11/23 21:53:00 EST, Weight Dosing chlorhexidine topical, 0.018 gm, 15 mL, Oral, BID, 480 mL, Refill(s) 0, (swish and spit; do not swallow), [facility], 160, cm, 05/11/23 21:53:00 EST, Height/Length Dosing, 110, kg, 05/11/23 21:53:00 EST, Weight Dosing 3. First trimester (Z34.91: Encounter for supervision of normal , unspecified, first trimester) Periapical abscess without sinus (K04.7: Periapical abscess without sinus) Orders: ketorolac, 30 mg = 1 mL, Injection, IntraMuscular, Once, Stop date 05/11/23 23:31:00 EST, STAT, Start date 05/11/23 23:31:00 EST, 05/11/23 23:31:00 EST [facility]03-05-2024 Hospital Discharge instructions* Discharge Instructions* Chet Berumen DO - 05/10/2023 11:50 AM EST Use amoxicillin as prescribed. Use Tylenol as needed for pain. Follow-up with dentist as soon as possible. * Attachments The following attachments cannot be sent through Care Everywhere. * Tooth Decay (Brazilian) * Tooth and Gum Pain (Brazilian) [facility] [...] Supplements: Reviewed Current Outpatient Medications Ordered in [facility] Medication Sig Dispense Refill baclofen [...] mg by mouth daily . No current [facility]-ordered facility-administered medications on file. Lab [...] - 6-7 PM- crock pot meals- goulash; Guatemalan chicken; spicy rice with chicken and beans; [...] calorie goals/day. Estimated Nutritional Needs: Calorie Needs: 5494-7739 kcals/day (MSJ x 1.3AF -500-1000 to promote gradual weight loss) Patient/Family Education: Learner: family and patient Readiness: action - ready to set action plan and implement goals Barriers to Learning: none Method: explanation and handout Response: verbalizes understanding Expected Adherence: good Education Materials Provided: Healthy Meal Planning handout ([facility]), Goal Sheet, 1,228-Fkqklhx3-Mab Menus (NCM), 1,800-Calorie 5-Day Menus ([facility]), Weight Loss Tips ([facility]) Monitoring/Evaluation: Lab results, weight, food recall, meal planning, goal achievement, physical activity, medication management. This documentation has been sent to the referring healthcare provider. Angelito Harvey RDN, LD Personal Office documented in this [id number] History of Present illness Narrative* Farhat Vang [...] C hepatitis virus. Patient was referred to telesales team leader and the recommendation was made for a [...] improve, for Follow Up. 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 female [...] current medications that are prescribed by her motor tune up specialist. She has 4 children at home [...] Not difficult at all documented in this [id number] History of Present illness Narrative* Holland Ann [...] Friends and Family: Not on file Attends Bahai Services: Not on file Active Member of [...] Report 12/29/2020 Final Value:Gynecologic Cytology Report Case: [id number] Authorizing Provider: Germania Valentino, Collected: 12/29/2020 11:09 AM RAILWAY SWITCHMAN Ordering Location: [facility] Received: 12/30/2020 12:03 PM [facility] First Screen: Violet Craig Rescreen: Talya Abel [...] from every slide are reviewed by a machine stuffer. Specimen processing and Primary Screening performed at: [facility] - [address] [place] [id number] HPV Results 12/29/2020 Final Value:This result contains [...] physician. Holland Ann MD documented in this [id number] History of Present illness Narrative* Jeimy Tan LPN - 01/15/2021 11:17 AM EST This nurse acted as a boiler house operator for a rectal exam by Dr. Ann for Tia. Tia verbalized consent to be examined, appeared comfortable and tolerated the exam well. documented in this [id number] History of Present illness Narrative* Neris Ulloa, [...] oatmeal packet. Snack celery + PB or Moldovan yogurt or green peppers. Lunch - will be light if full from snack and may have an early dinner. Dinner - pork chops, steamed vegetables. Snack - Moldovan yogurt or vegetables or watermelon. Beverages - [...] prescription for Current Outpatient Medications Ordered in [facility] Medication Sig Dispense Refill blood [...] BLOOD SUGAR FOUR TIMES DAILY No current [facility]-ordered facility-administered medications on file. SMBG [...] the referring healthcare provider. documented in this [id number] Instructions* Patient Instructions* Zelda Bautista CNP - [...] to renew/prescribe testing supplies. documented in this [id number] History of Present illness Narrative* Zelda Bautista [...] ounces 2011 female 6 pounds 11 ounces 2014 male approximately 8 pounds Ms. Levin is [...] visit with us. The patient did bring Bellabeatlood sugar meter with her for download today however there is not many readings on it. She states she started a new job at [employer] and does noise get breaks to check [...] 4. Patient to cont. To follow with hammer setter 5. Patient will require 2 hour 75 gram OGTT 8-12 weeks after delivery. 6. Follow-up in 2 weeks. Risks and potential complications of diabetes were reviewed with the patient. Electronically signed by Zelda MARIN 07/09/2110:03 AM documented in this [id number] History of Present illness Narrative* Lelo Gallegos [...] hour: 193 3 hour: 176 Assessment: Tia Puri Levin 30 y.o. female presents to our [...] month during . While awaiting appointment with hammer setter, patient provided with details of GDM diet, [...] 1 hour post prandial. 4. Referral to hammer setter 5. Patient will require 2 hour 75 gram OGTT 8-12 weeks after delivery. 6. Follow-up in 2 weeks. Risks and potential complications of diabetes were reviewed with the patient. documented in this encounterTennesseeHealthEvaluation + Plan note No data available for this section [facility]* Diagnosis Diet controlled gestational diabetes mellitus (GDM) in second trimester [facility] Diagnosis Acute frontal sinusitis, recurrence not specified- Primary documented in this encounter [employer] Phone: evaluation note* Diagnosis Diet controlled gestational diabetes mellitus (GDM) in third trimester- Primary [facility] Diagnosis Diet controlled gestational diabetes mellitus (GDM) in third trimester [facility]* Diagnosis Viral URI- Primary Acute upper respiratory infections of unspecified site documented in this encounter [employer] Phone: evaluation note* Diagnosis Strain of rhomboid muscle, initial encounter Chest wall muscle strain, initial encounter documented in this encounter [employer] Phone: evaluation note* Diagnosis Viral syndrome- Primary Unspecified viral infection, in conditions classified elsewhere and of unspecified site documented in this encounter [employer] Phone: evaluation note* Diagnosis Hemorrhoids, unspecified hemorrhoid type documented in this encounter [facility]* Diagnosis COVID-19- Primary Omphalitis in adult Unspecified local infection of skin and subcutaneous tissue documented in this encounter [employer] Phone: evaluation note* Diagnosis Encounter for general adult medical examination with abnormal findings- Primary Anxiety and depression History of opioid abuse (HCC) Morbid obesity with body mass index (BMI) of 40.0 or higher (HCC) documented in this encounter [facility]* Diagnosis Anxiety and depression- Primary At risk for obstructive sleep apnea Chronic bilateral low back pain without sciatica Hepatitis C antibody positive in blood Body mass index 40.0-44.9, adult (HCC) Body Mass Index 40.0-44.9, adult History of opioid abuse (HCC) documented in this encounter [facility]* Diagnosis Morbid obesity with body mass index (BMI) of 40.0 or higher (HCC) documented in this encounter [facility]* Diagnosis Acute pharyngitis, unspecified etiology- Primary documented in this encounter [employer] Phone: evaluation note* Diagnosis Acute bronchitis, unspecified organism- Primary documented in this encounter [employer] Phone: evalivhadq note* Diagnosis Masseter muscle spasm- Primary Spasm of muscle Other acute postprocedural pain documented in this encounter [employer] Phone: evaluation note* Diagnosis Dry socket- Primary Alveolitis of jaw documented in this encounter [employer] Phone: evalnqvzog note* Diagnosis Sprain of right ankle, unspecified ligament, initial encounter- Primary documented in this encounter [facility]* Diagnosis Toothache- Primary Unspecified disorder of the teeth and supporting structures Dental decay Unspecified dental caries documented [facility] this [facility]* Diagnosis 26 weeks gestation of - Primary state, incidental documented in this encounter [facility] instructions* Instructions* Anuj Quinn MD - 06/24/2020 Although many kjht-ofe-khqdwag cough cold flu sinus medications are safe in , I would contact her [facility]IGH[facility]STER office in [facility] to verify what your WEIGHMASTER group feels a safe in . Tylenol [...] be sent through Care Everywhere. * Sinusitis (Brazilian) documented in this [employer] Phone: spital Discharge instructions* Attachments The following attachments cannot be sent through Care Everywhere. * URI (Upper Respiratory Infection) (Brazilian) documented in this [employer] Phone: MeUndiesspital Discharge instructions* Attachments The following attachments cannot be sent through Care Everywhere. * Muscle Strain (Brazilian) documented in this [employer] Phone: spital Discharge instructions* Attachments The following attachments cannot be sent through Care Everywhere. * Viral Infections (Brazilian) documented in this [employer] Phone: MeUndiesspital Discharge instructions* Attachments The following attachments cannot be sent through Care Everywhere. * Coronavirus Disease (COVID-19): General Info (Brazilian) * Coronavirus Disease (COVID-19): Isolation (Brazilian) * Piercing: Infection (Brazilian) documented in this [employer] Phone: MeUndiesspAlkermes Discharge instructions* Instructions* Clark Moser MD - 07/22/2021 Use Tylenol or Motrin for pain. Take amoxicillin twice a day. Amoxicillin treats strep throat, ear infections, bronchitis and pneumonia. Call primary care doctor for close follow-up. * Attachments The following attachments cannot be sent through Care Everywhere. * Sore Throat (Brazilian) [facility]: spital Discharge instructions* Attachments The following attachments cannot be sent through Care Everywhere. * Bronchitis (Brazilian) [facility] Phone: spital Discharge instructions* Attachments The following attachments cannot be sent through Care Everywhere. * Cramp: Muscle (Brazilian) * Pain Post-Surgery: Acute (Brazilian) [facility] Phone: spital Discharge instructions* Attachments The following attachments cannot be sent through Care Everywhere. * Hartley Tooth Extraction: Post-op (Brazilian) [facility] Phone: spital Discharge instructions No data available for this section [facility] Discharge instructions* Attachments The following attachments cannot be sent through Care Everywhere. * Ankle Sprain (Brazilian) [facility] Discharge instructions* Attachments The following attachments cannot be sent through Care Everywhere. * : Weeks 26 to 30 (Brazilian) * : When to Call (After 20 Weeks): General Info (Brazilian) * : Twins: General Info (Brazilian) documented in this encounterWHITINSV[facility]LE [facility]OSPITALDERP [facility] No data available for this section [facility] for referral (narrative)* Consultation (Routine) Status Reason Specialty Diagnoses / Procedures Referred By Contact Referred To Contact Authorized Nutrition Diagnoses Diet controlled gestational diabetes mellitus (GDM) in second trimester Lelo Gallegos MD [address] [place] [address] Nutrition Services [address] [place] [address] [facility] for visit Narrative* Consultation (Routine) - Pending Review Specialty Diagnoses / Procedures Referred By Contac t Referred To Contact Gastroenterology Diagnoses Hemorrhoids, unspecified hemorrhoid type Angle, Germania Polly, RAILWAY SWITCHMAN [address] [place] [address] Holland Ann MD [address] [place] [address] Referral ID Status Reason Start Date Expiration Date V isits Requested Visits Authorized [id number] Pending Review 12/29/2020 01/14/2022 1 1 [facility] Assessments Diagnosis Accidental overdose of heroin, [...] FoundDocuments on File Type Date Recorded Patient Convalescent Sitter Expl anation Advance Directives and Living Will Power of Passenger Service Manager Documents on File Type Date Recorded Patient Convalescent Sitter Expl anation Advance Directives and Living Will 06/14/2019 7:25 AM does not have 0 Latest Code Status on File Code Status Date Activated Date Inactivated Comments Full Code 06/15/2019 9:29 AM 06/17/2019 4:38 PM Full Code - Unverified 06/14/2019 8:35 AM 06/15/2019 9:29 AM Documents on File Type Date Recorded Patient Convalescent Sitter Expl anation Advance Directives and Living Will 06/14/2019 7:25 AM does not have 3/13/2 0 Latest Code Status on File Code Status Date Activated Date Inactivated Comments Full Code 06/15/2019 9:29 AM 06/17/2019 4:38 PM Full Code - Unverified 06/14/2019 8:35 AM 06/15/2019 9:29 AM Documents on File Type Date Recorded Patient Convalescent Sitter Expl anation Advance Directives and Living Will 06/20/2019 1:10 PM does not have 3/13/2 0 Documents on File Type Date Recorded Patient Convalescent Sitter Expl anation ACP-Advance Directive ACP-Power of Passenger Service Manager Documents on File Type Date Recorded Patient Convalescent Sitter Expl anation Advance Directives and Living Will 06/20/2019 1:10 PM does not have 3/13/2 0 Documents on File Type Date Recorded Patient Convalescent Sitter Expl anation Advance Directives and Living Will 08/28/2020 5:58 AM does not have 3/13/2 0 Latest Code Status on File Code Status Date Activated Date Inactivated Comments Full Code 08/28/2020 11:15 AM 08/30/2020 11:53 AM Full Code 08/28/2020 5:31 AM 08/28/2020 11:07 AM Full Code 06/15/2019 9:29 AM 06/17/2019 4:38 PM Documents on File Type Date Recorded Patient Convalescent Sitter Expl anation Advance Directives and Living Will 08/28/2020 5:58 AM does not have 3/13/2 0 Latest Code Status on File Code Status Date Activated Date Inactivated Comments Full Code 08/28/2020 11:15 AM 08/30/2020 11:53 AM Full Code 08/28/2020 5:31 AM 08/28/2020 11:07 AM Full Code 06/15/2019 9:29 AM 06/17/2019 4:38 PM Documents on File Type Date Recorded Patient Convalescent Sitter Expl anation Advance Directives and Livin g Will 05/15/2021 12:00 AM Latest Code Status on File Code Status Date Activated Date Inactivated Comments Full Code 10/05/2023 9:02 PM Hospital Course * Savita Stiles PA-C - 06/17/2019 10:12 AM EDT MEDONE DISCHARGE SUMMARY Tia Levin Account: [id number] Admitted: 06/14/2019 Discharge Date/Time: 06/17/19 / 10:12 [...] amphetamine and heroine use who presented to [facility] 06/14/19 with complaints of abdominal pain and nausea. [facility] AST 1116 ALT 665 Alk phos 255 T bili 6.5 Lipase 8. CTAP revealed pericholecystic fluid vs GB wall thickening, no gallstones or hepatic pathology noted. Patient transferred to [facility] 06/14/2019 for further treatment and evaluation. GI followedwith recommendations as discussed. Patient was stable for discharge home on 06/17/19. 1. Acute Liver Injury: H AST 1116 [...] chart for all vitals, diagnostic data, and technology methodology consultant notes. I discussed patient's case with Dr. Gregorio, Dr. Hay (GI) and RN. Discharge Medications Medication List ASK your doctor about these medications naltrexone microspheres Commonly known as: VivitroL Inject 380 (three hundred eighty) mg into the shoulder, thigh, or buttocks every 30 (thirty) days . Physician(s) Family: Physician No, Phone: None, Address: [facility] Follow Up: Javier Hay MD [address] [place] [address] [place] [address] [place] [address] Follow up Repeat weekly CBC, CMP and PT/INR for the next 3-4 weeks then follow up out patient with Dr. Hay. Laboratory Follow [facility] by [facility]: Weekly labs for CBC, CMP, PT/INR Additional Information: Patient seen and examined day of discharge. For more information regarding patient's care, including complete radiology reports, please contact [place] [facility] Records at Patient instructions, including activity, [...] amphetamine and heroine use who presented to [facility] 06/14/19 with complaints of abdominal pain and nausea. [facility] AST 1116 ALT 665 Alk phos 255 T bili 6.5 Lipase 8. CTAP revealed pericholecystic fluid vs GB wall thickening, no gallstones or hepatic pathology noted. Patient transferred to [facility] 06/14/2019 for further treatment and evaluation. [...] 1:16 PM EDT RESOURCES FOR PRIMARY CARE [facility] Primary Care Closed Opens tomorrow [address], [place] [address] [facility] [address], [place] [address] DIRECTIONS WEBSITE [facility] Walk-In Care Closed Opens tomorrow 11 AM [address] [place] [address] documented in this encounter* Instructions* Adia Dillon, [...] Opioid Use Disorder: Medication-Assisted Treatment: General Info (Brazilian) documented in this encounter* Attachments The following attachments cannot be sent through Care Everywhere. * Bacterial Vaginosis (Brazilian) * Trichomoniasis (Brazilian) documented in this encounter* Attachments The following attachments cannot be sent through Care Everywhere. * Dental Surgery: Generic: Post-op (Brazilian) documented in this encounter* Attachments The following attachments cannot be sent through Care Everywhere. * Bronchitis (Brazilian) * Pneumonia (Brazilian) documented in this encounter* Attachments The following attachments cannot be sent through Care Everywhere. * Poison Arabella - [place] - and [place] (Brazilian) documented in this encounter History of Present Illness * Javier Hay MD - 06/17/2019 9:59 AM EDT GASTROENTEROLOGY DAILY PROGRESS NOTE 1 Patient Name: Tia Levin MR #: [id number] Assessment/Plan: Elevated LFTs Assessment & Plan 29yo F with PMHx IVDU and hepatitis C who presents from [facility] with elevated LFTs and imaging c/f possible acute cholecystitis. GI consulted for further evaluation. - LFTs: AP 255, AST/ALT 665/1116, TB 6.5 (normal 02/2019) - CT w IVC ([facility]): moderate GBW thickening w pericholecystic fluid and [...] - 06/17/2019 7:41 AM EDT [facility] 06/17/2019 Tia Levin 1990 [id number] Assessment/Plan: Tia Levin is a 29 y.o. female with a history of amphetamine and heroine use who presented to [facility] 06/14/19 with complaints of abdominal pain and nausea. [facility] AST 1116 ALT 665 Alk phos 255 T bili 6.5 Lipase 8. CTAP revealed pericholecystic fluid vs GB wall thickening, no gallstones or hepatic pathology noted. Patient transferred to [facility] 06/14/2019 for further treatment and evaluation. [...] labs, diagnostics, vitals including pulse ox, and technology methodology consultant/other provider recommendations. No acute issues overnight [...] 7 days Lab Units 06/17/19 0528 06/16/19 0606/15/19456 SODIUM mmol/L 138 139 136 POTASSIUM mmol/L 4.1 4.3 3.8 CHLORIDE mmol/L 102 103 103 BICARB mmol/L 25 26 22 BUN mg/dL 5* 4* 5* CREATININE mg/dL 0.36* 0.32* 0.36* EGFR mL/min/1.73 m2 146 152 146 GLUCOSE mg/dL 102* 92 122* CALCIUM mg/dL 8.6 8.4 8.2* Results from last 7 days Lab Units 06/16/19 0632 06/15/1945606/14/19 1037 ALT U/L 825* 888* 808* AST U/L 544* 667* 592* ALK PHOS U/L 217* 193* 183* BILIRUBIN TOTAL mg/dL 5.9* 5.2* 4.9* Results from last 7 days Lab Units 06/14/19 1037 INR 1.3* * Javier Hay MD - 06/16/2019 9:43 AM EDT GASTROENTEROLOGY DAILY PROGRESS NOTE 2 Patient Name: Tia Levin MR #: [id number] Assessment/Plan: Elevated LFTs Assessment & Plan 29yo F with PMHx IVDU and hepatitis C who presents from [facility] with elevated LFTs and imaging c/f [...] Auguste MD - 06/16/2019 9:38 AM EDT [facility] Inpatient Progress Note 06/16/2019 Tia Levin 1990 [id number] Assessment/Plan: Tia Levin is a 29 y.o. female with a history of amphetamine and heroine use who presented to [facility] 06/14/19 with complaints of abdominal pain and nausea. [facility] AST 1116 ALT 665 Alk phos 255 T bili 6.5 Lipase 8. CTAP revealed pericholecystic fluid vs GB wall thickening, no gallstones or hepatic pathology noted. Patient transferred to [facility] 06/14/2019 for further treatment and evaluation. 1. Acute Liver Injury: [facility] AST 1116 ALT 665 Alk phos [...] recent labs, diagnostics, vitals including pulseox, and technology methodology consultant/other provider recommendations. No acute issues overnight [...] 2 Patient Name: Tia Levin MR #: [id number] Assessment/Plan: Elevated LFTs Assessment & Plan 29yo F with PMHx IVDU and hepatitis C who presents from [facility] with elevated LFTs and imaging c/f possible [...] Radiology, Medications and Transcriptions Aisha Hare CNP [facility] (for staff use only) * Indra Pruitt MD - 06/15/2019 10:43 AM EDT [facility] Inpatient Progress Note 06/15/2019 Tia Levin 1990 [id number] Assessment/Plan: Tia Levin is a 29 y.o. female with a history of amphetamine and heroine use who presented to [facility] 06/14/19 with complaints of abdominal pain and nausea. [facility] AST 1116 ALT 665 Alk phos 255 T bili 6.5 Lipase 8. CTAP revealed pericholecystic fluid vs GB wall thickening, no gallstones or hepatic pathology noted. Patient transferred to [facility] 06/14/2019 for further treatment and evaluation. [...] auscultation Gastrointestinal: Soft, obese, RUQ tenderness. + shotr sign Genitourinary: no suprapubic tenderness Musculoskeletal: No [...] not have a PCP and refused a rn case management consult for assistance. Verified insurance and Rx. [...] 10:48 AM EDT Patient on TCC EPIC [facility] for follow-up. After provider review, I called and spoke with patient and changed her appointment to a phone visit, same date/time. In addition, as per provider request, I spoke with patient about going to any [facility] to have her lab taken so it will be available for review on 06/20/19 when she is called for her TCC appointment. Patient agreed with this plan. documented in this encounter* Anastasiia Garza CNP - 06/20/2019 1:16 PM EDT Attempted to call the patient for her tele-health visit today though she did not answer. Called [facility] [place] - 2 number 5 times and home phone once, neither phone number left me the option to leave a voicemail. * Franchesca Skaggs MA - 06/20/2019 1:13 PM EDT Abdominal pain and yellow eyes follow up. Patient states that she is not feeling better but not worse. Does not have a PCP. Does want PCP right now. documented in this encounter* Neris Ulloa, MATIAS - 06/10/2020 10:33 AM EDT Patient Name: Tia Levin Patient : 1990 Primary Care Provider: Physician Judy Referred By: Lelo Gallegos MD Referral Diagnosis: [...] daily (lemon water) Occasional iced coffee at [employer]. Was drinking a lot of Mountain Dew and Energy drinks prior to but stopped. Meals Away From Home - most days, fast food Past Medical History: Past Medical History: Diagnosis Date Anxiety Depression Infectious viral hepatitis hep c PTSD (Post-Traumatic Stress Disorder) History From: History obtained from patient and chart review. Current/Pertinent Medications: prescription for Current Outpatient Medications Ordered in [facility] Medication Sig Dispense Refill amoxicillin [...] daily . 90 tablet 3 No current [facility]-ordered facility-administered medications on file. SMBG [...] mass index (BMI) of 40.0 or higher ([facility]) Farhat Vang MD [address] Referral ID Status Reason Start Date Expiration Date Visits Requested Visits Authorized [id number] Authorized Specialty Services Required/Pat ient's Best Interest 04/16/2021 04/16/2022 1 1 Specialty Diagnoses / Procedures Referred By Contac t Referred To Contact Neurosurgery Diagnoses Chronic bilateral low back pain without sciatica Farhat Vang MD [address] [address] Carina Kline MD [address] [address] Referral ID Status Reason Start Date Expiration Date Visits Requested Visits Authorized [id number] Authorized Specialty Services Required/Pat ient's Best Interest 05/14/2021 05/14/2022 1 1 Specialty Diagnoses / Procedures Referred By Contac t Referred To Contact Rehabilitation Diagnoses Chronic bilateral low back pain without sciatica Farhat Vang MD [address] [address] Referral ID Status Reason Start Date Expiration Date Visits Requested Visits Authorized [id number] Authorized Specialty Services Required/Pat ient's Best Interest 05/14/2021 05/14/2022 1 1 Specialty Diagnoses / Procedures Referred By Contac t Referred To Contact Diagnoses At risk for obstructive sleep apnea Farhat Vang MD [address] [address] Gabriel Jacinto MD [address] [place], [place] [address] [place] [address] Referral ID Status Reason Start Date Expiration Date Visits Requested Visits Authorized [id number] Authorized Specialty Services Required/Pat ient's Best Interest 05/14/2021 05/14/2022 1 1 Additional Source Comments Reason for Visit (unrecogniz ed section and content) Reason Comments Drug Overdose Pt was brought in by [facility] for heroin OD. Prior to arrival [facility] gave 4 mg nasal Narcan. Reason Comments [...] in second trimester Lelo Gallegos MD [address] [place] [address] Nutrition Services [address] [place] [address] Reason Comments Gestational Diabetes Status Reason Specialty Diagnoses / Procedures Referred By Contact Referred To Contact Closed Endocrinology Diagnoses Diet controlled gestational diabetes mellitus (GDM) in second trimester Roslyn Stevenson MD [address] [place] [id number] Lelo Gallegos MD [address] [place] [address] Reason Comments Pharyngitis sore throat and head [...] mass index (BMI) of 40.0 or higher ([facility]) Farhat Vang MD [address] [facility] [address] [place] [address] Nutrition Services [address] [place] [address] Referral ID Status Reason Start Date Expiration Date Visits Requested Visits Authorized [id number] Authorized Specialty Services Required/Pat ient's Best Interest [...] and Physical Note 06/14/19 Tia Levin 1990 [id number] Assessment/Plan: Tia Levin is a 29 y.o. female with a history of amphetamine and heroine use who presented to [facility] 06/14/19 with complaints of abdominal pain and nausea. OL AST 1116 ALT 665 Alk phos 255 T bili 6.5 Lipase 8. CTAP revealed pericholecystic fluid vs GB wall thickening, no gallstones or hepatic pathology noted. Patient transferred to [facility] 06/14/2019 for further treatment and evaluation. 1. Elevated LFTs: [facility] AST 1116 ALT 665 Alk phos 255 T bili 6.5 (normal 02/2019). [facility] CTAP as noted above. RUQ U/S 06/14/19 [...] amphetamine and heroine use who presented to [facility] 06/14/19 with complaints of abdominal pain and nausea. OL AST 1116 ALT 665 Alk phos 255 T bili 6.5 Lipase 8. CTAP revealed pericholecystic fluid vs GB wall thickening, no gallstones or hepatic pathology noted. Patient transferred to [facility] 06/14/2019 for further treatment and evaluation. [...] labs, diagnostics, vitals including pulse ox, and technology methodology consultant/other provider recommendations. Discussed with collaborating physician [...] file Gets together: Not on file Attends lutheran service: Not on file Active member of [...] reviewed, including documentation from previous hospitalizations and technology methodology consultant recommendations as summarized below. Briefly, patient [...] Jackson Jain MD - 06/16/2019 10:43 AM EDTGrimeAisha CNP - 06/14/2019 10:05 AM EDT Consult Notes (unrecognized section and content) Associated Order(s): IP CONSULT TO GENERAL SURGERY Clinic Surgery Consult Note Patient Name: Tia Levin Admit Date: MR #: [id number] : 1990 Senior addendum 29 y/o F [...] Hepatitis C, and hx of presents to [facility] with jaundice and abdominal pain. -RUQ [...] cholecystectomy -d/w Dr. Jain, Clinic Chief Dung lFeming MD General Surgery, PGY 2 Pager# [phone] 06/16/2019, 10:43 AM After 5 PM and on Weekends, please page [phone] (Surgery Drapery And Upholstery Estimator director selection and administration) History of Present Illness: Patient presented for [...] file Gets together: Not on file Attends lutheran service: Not on file Active member of [...] patient. I discussed the case with the resident/CARDROOM MANAGER and agree with the findings and plan as documented in his/her note and/or any note I supplied. Associated Order(s): IP CONSULT TO GASTROENTEROLOGY GASTROENTEROLOGY CONSULT NOTE 4 Patient Name: Tia Levin Admit Date: MR #: [id number] : 1990 Physicians: Physician No (Family); Brie Moreno MD (Referring) Consult Ordered By: Franny Sims PA-C Assessment and Plan: Other Elevated LFTs Assessment & Plan 29yo F with PMHx IVDU and hepatitis C who presents from [facility] with elevated LFTs and imaging c/f [...] IVDU and hepatitis C who presents from [facility] with elevated LFTs and imaging c/f [...] she has been in and out of [facility] over past 3mo. She denies EtOH. Denies NSAID and significant Tylenol use. Denies new medications, herbal supplements, or recent ATBx. She denies any known FH of liver disease or GI related malignancies. Current LFTs include: AP 255, AST/ALT 665/1116, TB 6.5 (of note were normal in 02/2019). CTa/p w IVC at [facility] demonstrated moderate GBW thickening w pericholecystic fluid [...] file Gets together: Not on file Attends lutheran service: Not on file Active member of [...] Invalid input(s): CO2, LABALBU Aisha Hare CNP [facility] (for staff use only) Associated [...] reviewed, including documentation from previous hospitalizations and technology methodology consultant recommendations as summarized below. Briefly, patient [...] IVDU and hepatitis C who presents from [facility] with elevated LFTs and imaging c/f [...] secti on and content) ED PROVIDER NOTE [facility] NAME: Tia Levin AGE: 29 y.o. : 1990 VISIT DATE: 08/13/2019 CSN: [id number] PCP: Physician No Chief Complaint Patient presents with Drug Overdose This is a 29-year-old female brought to the ER via EMS for evaluation. Time my exam patient is alert and oriented. She states she was in the [place] parking lot bent over in her car [...] file Gets together: Not on file Attends lutheran service: Not on file Active member of [...] nursing note reviewed. Exam conducted with a boiler house operator present (Nurses at the bedside). Constitutional: [...] for helping people with drug addiction. [address] [facility] [address] Contact information for after-discharge care Follow-up information has not been specified. Adia Dillon CNP 08/13/191948 Pt brought in by [facility], states she was found by [facility] unresponsive [...] section and content) DATE CREATED AUTHOR 08/21/2019 [facility] DATE CREATED AUTHOR AUTHOR'S ORGANIZ ATION 02/15/2021 [facility] DATE CREATED AUTHOR AUTHOR'S ORGANIZ ATION 05/18/2021 [facility] DATE CREATED AUTHOR AUTHOR'S ORGANIZ ATION 07/02/2021 [facility] DATE CREATED AUTHOR AUTHOR'S ORGANIZ ATION 07/09/2021 [facility] DATE CREATED AUTHOR AUTHOR'S ORGANIZ ATION 07/05/2022 [facility] DATE CREATED AUTHOR AUTHOR'S ORGANIZ ATION 05/14/2023 [facility] DATE CREATED AUTHOR AUTHOR'S ORGANIZ ATION 10/07/2023 [facility] DATE CREATED AUTHOR AUTHOR'S ORGANIZ ATION 10/29/2023 [facility] DATE CREATED AUTHOR AUTHOR'S ORGANIZ ATION 11/11/2023 [facility] EPIC Ordered Prescriptions (unrec ognized section [...] 60 mg, Oral, ONCE, 1 dose, On 8/8/22 at 1830 1839 (Given - Provid er: Zayda Beck RN) [...] 2015 2014 (Given - Provid er: Juliana Stewart RN) [...]
Care Teams (unrecognized sec tion and content) Rock Drill Operator Relationship Specialty Start Date End Date No, Physician [facility] PCP - General 12/29/20 Germania Galaviz, RAILWAY SWITCHMAN [address] [place] [address] Nurse Practitioner Obstetrics/Gynecology 11/01/19 Rock Drill Operator Relationship Specialty Start Date End Date No, Physician [facility] PCP - General 12/29/20 Germania Galaviz, RAILWAY SWITCHMAN [address] [place] [address] Nurse Practitioner Obstetrics/Gynecology 11/01/19 Rock Drill Operator Relationship Specialty Start Date End Date Farhat Vang MD [address] [facility] [address] [place] [address] PCP - General Family Medicine 04/16/21 Germania Galaviz, RAILWAY SWITCHMAN [address] [facility] [place] [address] Nurse Practitioner Obstetrics/Gynecology 11/01/19 Radha Pantoja MD [address] [place] [address] Rake Operator Obstetrics/Gynecology 02/02/21 Yvonne Santos MD [address] [place] [address] Rake Operator Obstetrics/Gynecology 02/02/21 Regla Dias CN [address] [place] [address] Harvesting Supervisor Obstetrics/Gynecology 02/02/21 Rock Drill Operator Relationship Specialty Start Date End Date Farhat Vang MD [address] [address] PCP - General Family Medicine 04/16/21 Germania Galaviz, RAILWAY SWITCHMAN [address] [facility] [place] [address] Nurse Practitioner Obstetrics/Gynecology 11/01/19 Radha Pantoja MD [address] [facility] [place] [address] Rake Operator Obstetrics/Gynecology 02/02/21 Yvonne Santos MD [address] [place] [address] Rake Operator Obstetrics/Gynecology 02/02/21 Regla Dias CN [address] [place] [address] Harvesting Supervisor Obstetrics/Gynecology 02/02/21 Rock Drill Operator Relationship Specialty Start Date End Date Farhat Vang MD [address] [facility] [address] [place] [address] PCP - General Family Medicine 04/16/21 Germania Galaviz, RAILWAY SWITCHMAN [address] [place] [address] Nurse Practitioner Obstetrics/Gynecology 11/01/19 Radha Pantoja MD [address] [address] [facility] [address] [place] [address] Rake Operator Obstetrics/Gynecology 02/02/21 Yvonne Santos MD [address] [facility] [place] [address] Rake Operator Obstetrics/Gynecology 02/02/21 Regla Dias, [facility] [address] [place] [address] Harvesting Supervisor Obstetrics/Gynecology 02/02/21 Rock Drill Operator Relationship Specialty Start Date End Date Linda Sheppard DO [address] [facility] [place] [address] PCP - General Family Medicine 09/04/22 Rock Drill Operator Relationship Specialty Start Date End Date Linda Sheppard, [address] [place] [place] [address] PCP - General Family Medicine 09/04/22 Rock Drill Operator Relationship Specialty Start Date End Date Linda Sheppard DO [address] [facility] [place] [address] PCP - General Family Medicine 09/04/22 FOR [...] BE BASED ON THE PRIMARY CLINICAL RECORDS. [facility]. provides no warranty or guarantee of the accuracy or completeness of information in this document.
[2023-11-11 11:07] VITALS: BP 116/69; PULSE 109
== END 2023-11-11 11:58 | disposition home or self-care (01) ==
LOC: FBCO 06:58 → FBC 10:48
PROVIDERS: Visit Provider Obstetrics & Gynecology
DX: O30.033 Twin pregnancy, monochorionic/diamniotic, third trimester (principal); Z3A.32 32 weeks gestation of pregnancy
CPT/HCPCS: 59025

== ENCOUNTER 2023-11-15 06:47 | Outpatient (OUT) | payer BC, SELFPAY ==
--- OUTSIDE RECORDS SUMMARY | 2023-11-15 06:50 | XMS_ITS | CCD ---
Author Organization [facility] ion Partnership [facility] Care Team Providers Care Service Order Expediter Name Role Phone Unavailable Primary Care Provider [...] Care Provider UnavailGermania Rodriguez CNP Unavailable [phone] Roslyn Stevenson MD Unavailable Radha Pantoja MD Unavailable Yvonne Santos MD Unavailable Larissa CNM, Regla Corina Unavailable Germania Galaviz CNP Unavailable [phone] No, Physician Primary Care Provider Unavailabl e [...] BERUMEN Attending Unavailable MARK DUMONT Referring Unavailable LNIDA SHEPPARD Primary Care Unavailable MARK DUMONT Referring Unavailable LINDA SHEPPARD Primary Care Unavailable LINDA SHEPPARD Primary Care Unavailable NICHOLAS ROGER Attending Unavailable MARK DUMONT Attending Unavailable MARK DUMONT Attending Unavailable MARK DUMONT Attending Unavailable MARK DUMONT Attending Unavailable MARK DUMONT Attending Unavailable MARK DUMONT Attending Unavailable VIOLET JUAREZ Consulting Unavailable JOE [...] day(s), # 14 tab(s), Refills(s) 0, Pharmacy: [facility], 160, cm, 05/11/23 21:53:00 EST, Height/Length [...] oral solution (2 sources) alpha-Adrenergic Agonist, Uncompetitive Y-bvqtzo-I-aspartate Receptor Antagonist, Sigma-1 Agonist Start: End: take 5 mL by mouth four times daily as needed for cough brompheniramine-pse udoephedrine-DM (BROMFED DM) 2-30-10 MG/5ML syrup Take 5 mLs by mouth 4 times daily as needed for Congestion or Cough 240 mL 1 10/12/2021 11/11/2021 Active Start: 11-07-2020 End: 11-12-2020 take 5 mL by mouth three times daily as needed for cough ayvqpenfiaxcmkg-cbzcgkmslvtnlkw-RS 2-30- 10 MG/5ML syrup Take 5 mLs [...] 0, (swish and spit; do not swallow), [facility], 160, cm, 05/11/23 21:53:00 EST, Height/Length [...] Active Dextromethorphan / guaiFENesin (2 sources) Uncompetitive O-itfzmy-P-asparta te Receptor Antagonist, Sigma-1 Agonist End: 06-24-2020 [...] day(s), # 15 tab(s), Refills(s) 0, Pharmacy: [facility], 160, cm, 05/13/23 11:33:00 EST, Height/Length [...] for Pain. 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] Onset: 05-18-2019 [...] Coag (Bld) [Time] 29.8 s Normal 23.9-33.8 [facility] Comment on above: Result Comment: IV Heparin Therapy Range: 62.0-94.0 Performed By: #### P T, PTT, BMP, CDP, TROPI #### [facility] [address] [place] [address] Media Strategist: Guero Sandoval MD Basic Metabolic Profon 10-04 Anion gap [Moles/Vol] 13 mmol/L Normal - [facility] Comment on above: Performed By: #### P T, PTT, BMP, CDP, TROPI #### [facility] [address] [place] [address] Media Strategist: Guero Sandoval MD BUN/CRE Ratio Result cannot be calculated, Creatinine below linear range. Normal - [facility] Comment on above: Performed By: #### P T, PTT, BMP, CDP, TROPI #### [facility] [address] [place] [address] Media Strategist: Guero Sandoval MD Calcium [Mass/Vol] 8.7 mg/dL Normal 8.6-10.4 [facility] Comment on above: Performed By: #### P T, PTT, BMP, CDP, TROPI #### [facility] [address] [place], [place] [phone] Media Strategist: Guero Sandoval MD Chloride [Moles/Vol] 105 mmol/L Normal 98-107 [facility] Comment on above: Performed By: #### P T, PTT, BMP, CDP, TROPI #### [facility] [address] [place], [place] [phone] Media Strategist: Guero Sandoval MD CO2 [Moles/Vol] 18 mmol/L Low 20-31 [facility] Comment on above: Performed By: #### P T, PTT, BMP, CDP, TROPI #### [facility] [address] [place], [place] [phone] Media Strategist: Guero Sandoval MD Creatinine [Mass/Vol] mg/dL Low 0.5-0.9 [facility] Comment on above: Performed By: #### P T, PTT, BMP, CDP, TROPI #### [facility] [address] [place], [place] [phone] Media Strategist: Guero Sandoval MD eGFR Can not be calculated Normal >60 [facility] Comment on above: Result Comment: These [...] P T, PTT, BMP, CDP, TROPI #### [facility] [address] [place] [address] Media Strategist: Guero Sandoval MD Glucose [Mass/Vol] 111 mg/dL High 70-99 [facility] Comment on above: Performed By: #### P T, PTT, BMP, CDP, TROPI #### [facility] [address] [place] [address] Media Strategist: Guero Sandoval MD Potassium [Moles/Vol] 3.8 mmol/L Normal 3.7-5.3 [facility] Comment on above: Performed By: #### P T, PTT, BMP, CDP, TROPI #### [facility] [address] [place] [address] Media Strategist: Guero Sandoval MD Sodium [Moles/Vol] 136 mmol/L Normal 135-144 [facility] Comment on above: Performed By: #### P T, PTT, BMP, CDP, TROPI #### [facility] [address] [place] [address] Media Strategist: Guero Sandoval MD Urea nitrogen [Mass/Vol] 6 mg/dL Normal 6-20 [facility] Comment on above: Performed By: #### P T, PTT, BMP, CDP, TROPI #### [facility] [address] [place] [address] Media Strategist: Guero Sandoval MD Brain Natri. Peptideon 10-04 Pro-BNP <36 Normal 0-300 [facility] Comment on above: Result Comment: An a ge-independent cutoff point of 300 pg/ml has a 98% negative predictive value excluding acute heart failure. Performed By: #### B GRAZING AIDE, TROPI #### [facility] [employer] [address] [place] [address] Media Strategist: Thor Hernández MD CBC with Diffon 10-05-2023 Abs. Basophil 0.04 k/uL Normal 0.00-0.20 [facility] Comment on above: Performed By: #### P T, PTT, BMP, CDP, TROPI #### [facility] [address] [place] [phone] Media Strategist: Guero Sandoval MD Abs.Imm.Granulocyte 0.16 k/uL Normal 0.00-0.30 [facility] Comment on above: Performed By: #### P T, PTT, BMP, CDP, TROPI #### [facility] [address] [place] [address] Media Strategist: Guero Sandoval MD Abs.Neutrophil (Seg) 8.05 k/uL High 2.5-7.0 [facility] Comment on above: Performed By: #### P T, PTT, BMP, CDP, TROPI #### [facility] [address] [place] [address] Media Strategist: Guero Sandoval MD Basophils/100 WBC (Bld) 0 % Normal 0-2 [facility] Comment on above: Performed By: #### P T, PTT, BMP, CDP, TROPI #### [facility] [address] [place] [phone] Media Strategist: Guero Sandoval MD Eosinophils (Bld) [#/Vol] 0.08 10*3/uL Normal 0.00-0.[address] [facility] Comment on above: Performed By: #### P T, PTT, BMP, CDP, TROPI #### [facility] [address] [place] [address] Media Strategist: Guero Sandoval MD Eosinophils/100 WBC (Bld) 1 % Normal 0-5 [facility] Comment on above: Performed By: #### P T, PTT, BMP, CDP, TROPI #### [facility] [address] [place] [address] Media Strategist: Guero Sandoval MD Erythrocyte distribution width (RBC) [Ratio] 13.1 % Normal 12.1-15.2 [facility] Comment on above: Performed By: #### P T, PTT, BMP, CDP, TROPI #### [facility] [address] [place] [address] Media Strategist: Guero Sandoval MD Hematocrit (Bld) [Volume fraction] 28.8 % Low 36.0-46.0 [facility] Comment on above: Performed By: #### P T, PTT, BMP, CDP, TROPI #### [facility] [address] [place] [phone] Media Strategist: Guero Sandoval MD Hemoglobin (Bld) [Mass/Vol] 9.8 g/dL Low 12.0-16.0 [facility] Comment on above: Performed By: #### P T, PTT, BMP, CDP, TROPI #### [facility] [address] [place] [address] Media Strategist: Guero Sandoval MD Immature granulocytes/100 WBC (Bld) 2 % Normal 0-5 [facility] Comment on above: Performed By: #### P T, PTT, BMP, CDP, TROPI #### [facility] [address] [place] [phone] Media Strategist: Guero Sandoval MD Lymphocytes (Bld) [#/Vol] 1.61 10*3/uL Normal 1.00-4.[address] [facility] Comment on above: Performed By: #### P T, PTT, BMP, CDP, TROPI #### [facility] [address] [place] [phone] Media Strategist: Guero Sandoval MD Lymphocytes/100 WBC (Bld) 15 % Normal 15-40 [facility] Comment on above: Performed By: #### P T, PTT, BMP, CDP, TROPI #### [facility] [address] [place] [phone] Media Strategist: Guero Sandoval MD MCH (RBC) [Entitic mass] 27.7 pg Normal 26.0-34.0 [facility] Comment on above: Performed By: #### P T, PTT, BMP, CDP, TROPI #### [facility] [address] [place] [address] Media Strategist: Guero Sandoval MD MCHC (RBC) [Mass/Vol] 34.0 g/dL Normal 31.0-37.0 [facility] Comment on above: Performed By: #### P T, PTT, BMP, CDP, TROPI #### [facility] [address] [place] [phone] Media Strategist: Guero Sandoval MD MCV (RBC) [Entitic vol] 81.4 fL Normal 80.0-100.0 [facility] Comment on above: Performed By: #### P T, PTT, BMP, CDP, TROPI #### [facility] [address] [place] [address] Media Strategist: Guero Sandoval MD Monocytes (Bld) [#/Vol] 0.77 10*3/uL Normal 0.00-1.00 [facility] Comment on above: Performed By: #### P T, PTT, BMP, CDP, TROPI #### [facility] [address] [place] [address] Media Strategist: Guero Sandoval MD Monocytes/100 WBC (Bld) 7 % Normal 4-8 [facility] Comment on above: Performed By: #### P T, PTT, BMP, CDP, TROPI #### [facility] [address] [place] [phone] Media Strategist: Guero Sandoval MD Neutrophil (Seg) 75 % Normal 47-75 [facility] Comment on above: Performed By: #### P T, PTT, BMP, CDP, TROPI #### [facility] [address] [place] [address] Media Strategist: Guero Sandoval MD Platelet mean volume (Bld) [Entitic vol] 10.2 fL Normal 6.0-12.0 [facility] Comment on above: Performed By: #### P T, PTT, BMP, CDP, TROPI #### [facility] [address] [place] [address] Media Strategist: Guero Sandoval MD Platelets (Bld) [#/Vol] 275 10*3/uL Normal 140-450 [facility] Comment on above: Performed By: #### P T, PTT, BMP, CDP, TROPI #### [facility] [address] [place] [address] Media Strategist: Guero Sandoval MD RBC (Bld) [#/Vol] 3.54 10*6/uL Low 4.00-5.20 [facility] Comment on above: Performed By: #### P T, PTT, BMP, CDP, TROPI #### [facility] [address] [place] [address] Media Strategist: Guero Sandoval MD WBC (Bld) [#/Vol] 10.7 10*3/uL Normal 3.5-11.0 [facility] Comment on above: Performed By: #### P T, PTT, BMP, CDP, TROPI #### [facility] [address] [place] [address] Media Strategist: Guero Sandoval MD CT CHEST PULMONARY EMBOLISM [...] Carlos Petersen MD 10/05/23 Final result Normal [facility] Liver Profileon 10-05-2023 Albumin [Mass/Vol] 3.0 g/dL Low 3.5-5.2 [facility] Comment on above: Performed By: #### L IVP #### [facility] [address] [place] [address] Media Strategist: Guero Sandoval MD Alkaline Phos 74 U/L Normal 35-104 [facility] Comment on above: Performed By: #### L IVP #### [facility] [address] [place] [address] Media Strategist: Guero Sandoval MD ALT [Catalytic activity/Vol] U/L Low 5-33 [facility] Comment on above: Performed By: #### L IVP #### [facility] [address] [place], [place] [phone] Media Strategist: Guero Sandoval MD AST [Catalytic activity/Vol] 9 U/L Normal <32 [facility] Comment on above: Performed By: #### L IVP #### [facility] [address] [place], [place] [phone] Media Strategist: Guero Sandoval MD Bilirubin [Mass/Vol] 0.3 mg/dL Normal 0.3-1.2 [facility] Comment on above: Performed By: #### L IVP #### [facility] [address] [place], [place] [phone] Media Strategist: Guero Sandoval MD Bilirubin, Indirect Can not be calculated Normal 0.0-1.0 [facility] Comment on above: Performed By: #### L IVP #### [facility] [address] [place], [place] [phone] Media Strategist: Guero Sandoval MD Bilirubin.indirect [Mass/Vol] mg/dL Normal <0.3 [facility] Comment on above: Performed By: #### L IVP #### [facility] [address] [place], [place] [phone] Media Strategist: Guero Sandoval MD Protein [Mass/Vol] 5.9 g/dL Low 6.4-8.3 [facility] Comment on above: Performed By: #### L IVP #### [facility] [address] [place], [place] [phone] Media Strategist: Guero Sandoval MD PTon 10-05-2023 INR Coag (PPP) [Relative time] 1.0 {INR} Normal [facility] Comment on above: Result Comment: Therapeutic Range: Moderate Anticoagulant Intensity: INR = 2.0-3.0 High Anticoagulant Intensity: INR = 2.5-3.5 Performed By: #### P T, PTT, BMP, CDP, TROPI #### [facility] [address] [place] [address] Media Strategist: Guero Sandoval MD PT Coag (PPP) [Time] 13.6 s Normal 11.5-14.2 [facility] Comment on above: Performed By: #### P T, PTT, BMP, CDP, TROPI #### [facility] [address] [place] [address] Media Strategist: Guero Sandoval MD Troponinon 10-05-2023 Troponin, High Sens <6 Normal 0-14 [facility] Comment on above: Result Comment: High Sensitivity Troponin values cannot be compared with other Troponin methodologies. Performed By: #### B GRAZING AIDE, TROPI #### [address] [phone] Media Strategist: Thor Hernández MD Troponin, High Sens <6 Normal 0-14 [facility] Comment on above: Result Comment: High Sensitivity Troponin values cannot be compared with other Troponin methodologies. Performed By: #### P T, PTT, BMP, CDP, TROPI #### [facility] [address] [place] [address] Media Strategist: Guero Sandoval MD UA w/Reflex Cultureon 2023 Bilirubin, SemiQt,Ur Negative Normal NEG [facility] Comment on above: Performed By: #### U MICAO, UAX #### [employer] [address] [place] [address] Media Strategist: Thor Hernández MD Blood, Urine Negative Normal NEG [facility] Comment on above: Performed By: #### U MICAO, UAX #### [facility] [employer] [address] [place] [address] Media Strategist: Thor Hernández MD Clarity (U) Cloudy Abnormal CLEAR [facility] Comment on above: Performed By: #### U MICAO, UAX #### [facility] [address] [place] [address] Media Strategist: Thor Hernández MD Color (U) Yellow Normal YEL [facility] Comment on above: Performed By: #### U MICAO, UAX #### [facility] [address] [place] [address] Media Strategist: Thor Hernández MD Glucose Ql (U) 1+ mg/dL Abnormal NEG [facility] Comment on above: Performed By: #### U MICAO, UAX #### [facility] [address] [place] [address] Media Strategist: Thor Hernández MD Ketones Ql (U) TRACE Abnormal NEG [facility] Comment on above: Performed By: #### U MICAO, UAX #### [address] [address] Media Strategist: Thor Hernández MD Leukocyte esterase Test strip Ql (U) Negative Normal NEG [facility] Comment on above: Performed By: #### U MICAO, UAX #### [address] [address] Media Strategist: Thor Hernández MD Nitrite,Ur Negative Normal NEG [facility] Comment on above: Performed By: #### U MICAO, UAX #### [address] [address] Media Strategist: Thor Hernández MD PH,Ur 6.0 Normal 5.0-8.0 [facility] Comment on above: Performed By: #### U MICAO, UAX #### [facility] [employer] [address] [place] [address] Media Strategist: Thor Hernández MD Protein Ql (U) TRACE Abnormal NEG [facility] Comment on above: Performed By: #### U MICAO, UAX #### [facility] [employer] [address] [place] [address] [place] [address] Media Strategist: Thor Hernández MD Spec. [place],Ur 1.028 Normal 1.005-1.030 [facility] Comment on above: Performed By: #### U MICAO, UAX #### [address] [address] Media Strategist: Thor Hernández MD Urobilinogen,Ur Normal Normal 0.0-1.0 [facility] Comment on above: Performed By: #### U MICAO, UAX #### [address] [address] Media Strategist: Thor Hernández MD Urinalysis,Microon 4 Bacteria MODERATE Abnormal NONE [facility] Comment on above: Performed By: #### U RICHYO, UAX #### [address] [address] Media Strategist: Thor Hernández MD Casts 2 TO 5 HYALINE Normal 0-8 [facility] Comment on above: Result Comment: Refe rence range defined for non-centrifuged specimen. Performed By: #### U MICAO, UAX #### [address] [address] Media Strategist: Thor Hernández MD Epithelial cells LM Ql (Urine sed) 20 TO 50 Normal 0-5 [facility] Comment on above: Performed By: #### U MICAO, UAX #### [facility] [employer] [address] [place] [address] Media Strategist: Thor Hernández MD Urine RBC's 0 TO 2 Normal 0-4 [facility] Comment on above: Result Comment: Refe rence range defined for non-centrifuged specimen. Performed By: #### U MICAO, UAX #### [facility] [employer] [address] [place] [address] Media Strategist: Thor Hernández MD Urine WBC's 5 TO 10 Normal 0-5 [facility] Comment on above: Performed By: #### U MICAO, UAX #### [address] [address] Media Strategist: Thor Hernández MD AFP, Maternalon 07-28-2023 Determined by Ultrasound Normal [facility] Comment on above: Performed By: #### A AFPM #### [address] [address] Media Strategist: Thor Hernández MD [address] [phone] Media Strategist: Tim Vizcarra MD #### FT4, TSH, FT3 #### [address] [address] Media Strategist: Thor Hernández MD Due Date SEE NOTE Normal [facility] Comment on above: Result Comment: Resu lts for Estimated Due Date: 01 06 24 Performed By: #### A AFPM #### [address] [address] Media Strategist: Thor Hernández MD [address] [phone] Media Strategist: Tim Vizcarra MD #### FT4, TSH, FT3 #### [address] [address] Media Strategist: Thor Hernández MD Family History No Normal [facility] Comment on above: Performed By: #### A AFPM #### [address] [address] Media Strategist: Thor Hernández MD [facility] [address] [place], [place] [phone] Media Strategist: Tim Vizcarra MD #### FT4, TSH, FT3 #### [facility] [address] [address] Media Strategist: Thor Hernández MD Gestat Age (exact) 16 wks, 4 days Normal [facility] Comment on above: Performed By: #### A AFPM #### [address] [address] Media Strategist: Thor Hernández MD [address] [address] Media Strategist: Tim Vizcarra MD #### FT4, TSH, FT3 #### [address] [address] Media Strategist: Thor Hernández MD Ins Req Matern Diab No [facility] Comment on above: Performed By: #### A AFPM #### [address] [address] Media Strategist: Thor Hernández MD [address] [address] Media Strategist: Tim Vizcarra MD #### FT4, TSH, FT3 #### [address] [address] Media Strategist: Thor Hernández MD Interpretation Screen Neg Normal [facility] Comment on above: Result Comment: (NOT E) INTERPRETATION: SCREEN NEGATIVE for open spina bifida Neural Tube Defects (NTD) Negative Pre-Test Post-Test Cutoff Neural Tube Defects Risks 1:452 1:3230 1:103 Comments: The risk of an open neural tube defect is less than the twin screening cut-off. This test was developed and its performance characteristics determined by [employer]. It has not been cleared or approved by the [place] Food and Drug Administration. This test was performed in a CLIA certified laboratory and is intended for clinical purposes. Performed By: #### A AFPM #### [address] [address] Media Strategist: Thor Hernández MD [address] [place] [address] Media Strategist: Tim Vizcarra MD #### FT4, TSH, FT3 #### [address] [address] Media Strategist: Thor Hernández MD [age] [facility] Comment on above: Performed By: #### A AFPM #### [facility] [address] [place] [address] Media Strategist: Thor Hernández MD [facility] [address] [place], [place] [phone] Media Strategist: Tim Vizcarra MD #### FT4, TSH, FT3 #### [address] [address] Media Strategist: Thor Hernández MD Maternal Race Nonblack [facility] Comment on above: Performed By: #### A AFPM #### [address] [address] Media Strategist: Thor Hernández MD [address] [phone] Media Strategist: Tim Vizcarra MD #### FT4, TSH, FT3 #### [address] [address] Media Strategist: Thor Hernández MD Maternal Weight 239.0 lbs. [facility] Comment on above: Performed By: #### A AFPM #### [facility] [address] [place] [address] Media Strategist: Thor Hernández MD [facility] [address] [place] [address] Media Strategist: Tim Vizcarra MD #### FT4, TSH, FT3 #### [address] [address] Media Strategist: Thor Hernández MD MoM for AFP 1.71 Normal [facility] Comment on above: Performed By: #### A AFPM #### [address] [address] Media Strategist: Thor Hernández MD [address] [address] Media Strategist: Tim Vizcarra MD #### FT4, TSH, FT3 #### [address] [address] Media Strategist: Thor Hernández MD Number of Fetuses Twins Normal [facility] Comment on above: Performed By: #### A AFPM #### [address] [address] Media Strategist: Thor Hernández MD [address] [address] Media Strategist: Tim Vizcarra MD #### FT4, TSH, FT3 #### [address] [address] Media Strategist: Thor Hernández MD Patient's AFP 46 ng/mL Normal [facility] Comment on above: Performed By: #### A AFPM #### [address] [address] Media Strategist: Thor Hernández MD [address] [address] Media Strategist: Tim Vizcarra MD #### FT4, TSH, FT3 #### [address] [address] Media Strategist: Thor Hernández MD Smoking Unknown [facility] Comment on above: Performed By: #### A AFPM #### [address] [address] Media Strategist: Thor Hernández MD [facility] [address] [place] [address] Media Strategist: Tim Vizcarra MD #### FT4, TSH, FT3 #### [address] [address] Media Strategist: Thor Hernández MD Specimen See Note [facility] Comment on above: Result Comment: (NOT E) Initial sample Performed By: [facility] [employer] [address] [place] [phone] [employer] Specialist: Morro Modi MD, PhD CLIA Number: [id number] Performed By: #### A AFPM #### [address] [address] Media Strategist: Thor Hernández MD [address] [address] Media Strategist: Tim Vizcarra MD #### FT4, TSH, FT3 #### [address] [address] Media Strategist: Thor Hernández MD [facility], [facility] 07-27-2023 Current Smoking INFORMATION NOT PROVIDED [facility] Comment on above: Performed By: #### A AFPM #### [address] [address] Media Strategist: Thor Hernández MD [address] [address] Media Strategist: Tim Vizcarra MD #### FT4, TSH, FT3 #### [address] [address] Media Strategist: Thor Hernández MD [facility] Comment on above: Performed By: #### A AFPM #### [address] [address] Media Strategist: Thor Hernández MD [address] [address] Media Strategist: Tim Vizcarra MD #### FT4, TSH, FT3 #### [address] [address] Media Strategist: hTor Hernández MD Diabetic Negative [facility] Comment on above: Performed By: #### A AFPM #### [address] [address] Media Strategist: Thor Hernández MD [address] [phone] Media Strategist: Tim Vizcarra MD #### FT4, TSH, FT3 #### [address] [address] Media Strategist: Thor Hernández MD Donor Egg INFORMATION NOT PROVIDED [facility] Comment on above: Performed By: #### A AFPM #### [address] [address] Media Strategist: Thor Hernández MD [address] [phone] Media Strategist: Tim Vizcarra MD #### FT4, TSH, FT3 #### [address] [address] Media Strategist: Thor Hernández MD Estimated Due Date 01/06/2024 [facility] Comment on above: Performed By: #### A AFPM #### [address] [address] Media Strategist: Thor Hernández MD [address] [phone] Media Strategist: Tim Vizcarra MD #### FT4, TSH, FT3 #### [address] [address] Media Strategist: Thor Hernández MD Family History Negative [facility] Comment on above: Performed By: #### A AFPM #### [address] [address] Media Strategist: Thor Hernández MD [address] [phone] Media Strategist: Tim Vizcarra MD #### FT4, TSH, FT3 #### [address] [address] Media Strategist: Thor Hernández MD In Vitro Fertalizat INFORMATION NOT PROVIDED [facility] Comment on above: Performed By: #### A AFPM #### [address] [address] Media Strategist: Thor Hernández MD [address] [address] Media Strategist: Tim Vizcarra MD #### FT4, TSH, FT3 #### [address] [address] Media Strategist: Thor Hernández MD LMP date 2023 [facility] Comment on above: Performed By: #### A AFPM #### [address] [address] Media Strategist: Thor Hernández MD [address] [phone] Media Strategist: Tim Vizcarra MD #### FT4, TSH, FT3 #### [address] [address] Media Strategist: Thor Hernández MD Maternal date 1990 [facility] Comment on above: Performed By: #### A AFPM #### [address] [address] Media Strategist: Thor Hernández MD [address] [place] [address] Media Strategist: Tim Vizcarra MD #### FT4, TSH, FT3 #### [facility] [address] [place] [address] Media Strategist: Thor Hernández MD Maternal Weight 239 [facility] Comment on above: Performed By: #### A AFPM #### [facility] [address] [place] [address] Media Strategist: Thor Hernández MD [facility] [address] [place] [address] Media Strategist: Tim Vizcarra MD #### FT4, TSH, FT3 #### [address] [address] Media Strategist: Thor Hernández MD Monochorionic Twins Positive Normal [facility] Comment on above: Performed By: #### A AFPM #### [address] [address] Media Strategist: Thor Hernández MD [address] [address] Media Strategist: Tim Vizcarra MD #### FT4, TSH, FT3 #### [address] [address] Media Strategist: Thor Hernández MD Patient Weight Units LBS Normal [facility] Comment on above: Performed By: #### A AFPM #### [facility] [address] [place] [address] Media Strategist: Thor Hernández MD [facility] [address] [place] [address] Media Strategist: Tim Vizcarra MD #### FT4, TSH, FT3 #### [facility] [address] [place] [address] Media Strategist: Thor Hernández MD Race (Maternal) Normal [facility] Comment on above: Performed By: #### A AFPM #### [address] [address] Media Strategist: Thor Hernández MD [address] [address] Media Strategist: Tim Vizcarra MD #### FT4, TSH, FT3 #### [address] [address] Media Strategist: Thor Hernández MD Repeat Specimen INFORMATION NOT PROVIDED Normal [facility] Comment on above: Performed By: #### A AFPM #### [address] [address] Media Strategist: Thor Hernández MD [address] [phone] Media Strategist: Tim Vizcarra MD #### FT4, TSH, FT3 #### [address] [address] Media Strategist: Thor Hernández MD Valproic/Carbamazep INFORMATION NOT PROVIDED [facility] Comment on above: Performed By: #### A AFPM #### [address] [address] Media Strategist: Thor Hernández MD [address] [address] Media Strategist: Tim Vizcarra MD #### FT4, TSH, FT3 #### [address] [address] Media Strategist: Thor Hernández MD Thyroxine, Freeon 07-27-2023 Thyroxine, Free 1.0 ng/dL Normal 0.92-1.68 [facility] Comment on above: Performed By: #### A AFPM #### [address] [address] Media Strategist: Thor Hernández MD [facility] [address] [place] [address] Media Strategist: Tim Vizcarra MD #### FT4, TSH, FT3 #### [address] [address] Media Strategist: Thor Hernández MD Protein,Tot,Webber Uron 9 Creatinine [Mass/Vol] 273.0 mg/dL High 28.0-217.0 [facility] Comment on above: Performed By: #### U RTPRT #### [address] [address] Media Strategist: Thor Hernández MD Tot Prot. Conc. 21 mg/dL Normal [facility] Comment on above: Result Comment: No n ormal range established. Performed By: #### U RTPRT #### [address] [address] Media Strategist: Thor Hernández MD TP/Cre Ratio 0.08 Normal [facility] Comment on above: Performed By: #### U RTPRT #### [address] [address] Media Strategist: Tohr Hernández MD T3, Freeon 5 Free T3 [Mass/Vol] 3.40 pg/mL Normal 2.00-4.40 [facility] Comment on above: Performed By: #### A AFPM #### [address] [address] Media Strategist: Thor Hernández MD [facility] [address] [place] [address] Media Strategist: Tim Vizcarra MD #### FT4, TSH, FT3 #### [address] [address] Media Strategist: Thor Hernández MD Thyroid Stim. Horm.on 2023 Thyroid Stim. Horm. <0.01 Low 0.27-4.20 [facility] Comment on above: Performed By: #### A AFPM #### [facility] [address] [place] [address] Media Strategist: Thor Hernández MD [address] [address] Media Strategist: Tim Vizcarra MD #### FT4, TSH, FT3 #### [facility] [address] [place] [address] Media Strategist: Thor Hernández MD ED Note-Physicianon 05-14-19 24 [...] see dentistry until she is cleared by [facility]. She does not have an appointment for [facility] to next week. She has no OB [...] day(s), # 15 tab(s), Refills(s) 0, Pharmacy: [facility], 160, cm, 05/13/23 11:33:00 EST, Height/Length [...] Oral, q6hr Follow-up With When Contact Information Shoop In 3 days 05/16/2023 EDT [address] [place], [place] [address] (1) Additional Instructions: Dentistry follow-up Patient [...] made to ensure accuracy, however, inadvertently computerized nurse ob mistakes may be present. Appropriate healthcare PPE was used in evaluating this patient. Problem List/Past Medical History Ongoing Acute hepatitis C Anxiety Apnea, sleep Dental caries PCOS (polycystic ovarian syndrome) Historical No qualifying data Procedure/Surgical History Delivery. Medications Inpatient ampicillin-sulbacta m additive + Sodium Chloride 0.9% intravenous solution 100 (more content not included)... Normal [facility] Comment on above: Result Comment: Elec tronically Signed By: Greg Stratton PA-C\.br\Date and Time Signed: 05/13/23 12:45 EST\.br\Electronically Co-Signed By: Jonathan Martinez DO\.br\Date and Time Co-Signed: 05/14/23 07:40 EST Consent for Treatmenton Consent for Treatment [id number] EC#1.00TIFF [facility] Discharge Instructionson Discharge Instructions [id number] 53#1.00TIFF Normal [facility] ED Clinical Summaryon 2023 ED Clinical Summary [address] [address] ED Clinical Summary Person Information Name: TIA MONROE Maria Elena/[facility] Age: 33 Years : 1990 Sex: [...] 05/13/2023 13:02:19 05/13/2023 13:02:19 05/13/2023 13:02:19 ADDRESS: [address] [place] [id number] PHYS DOC NOTES: MEDICAL INFORMATION: Prescriptions Given: New Medications [facility], [address] [place], [place] [id number], [phone] oxycodone (oxyCODONE 5 mg Tab) 1 Tablets [...] Dental Abscess Follow up: With: Address: When: [place] [phone] Business (1) In 3 days 05/16/2023 Comments: Dentistry follow-up DIAGNOSIS: Dental abscess Normal [facility] ED Patient Education Noteon 05-13-2023 ED [...] these instructions at home: Medicines ? Take acff-beu-qpmglnf and prescription medicines only as told by [...] mouth. ? (more content not included)... Normal [facility] ED Patient Summaryon 024 ED Patient Summary [address] [address] Patient Discharge Instructions Person Information Name: TIA MONROE Age: 33 Years Arrival Date: 05/13/2023 11:19:01 Discharge Diagnosis: Dental abscess Primary Care Physician: Linda Sheppard DO Provider Information Primary Provider: Jonathan Martinez DO [employer] Technical Officer:Greg Stratton PA-C The exam and treatment you received in the Emergency Department were for an urgent problem and are not intended as complete care. It is important that you follow up with a doctor, nurse practitioner, or physician?s planning assistant for ongoing care. If your symptoms become worse or you do not improve as expected and you are unable to reach your usual health care provider, you should return to the Emergency Department. We are available 24 hours a day. TIA MONROE has been given the following list of patient education materials, prescriptions and follow-up instructions: Follow-up Instructions: With: Address: When: [employer] [address] [address] Business (1) In 3 days 05/16/2023 Comments: Dentistry follow-up In the event that this physician does not participate in your insurance network, please consult with your insurance company to find a nearby participating provider. Patient Education Materials: Dental Abscess A MESSAGE TO ALL PATIENTS REGARDING OPIOIDS PRESCRIPTION OPIOIDS: WHAT YOU NEED TO KNOW Prescription opioids can be used to help relieve bfrphteq-ze-nwajum pain and are often prescribed following a [...] be struggling with addiction, tell your health managed care director and ask for guidance or call [facility]?S National Helpline at 9-826-8 (more content not included)... Normal [facility] Discharge Instructionson Discharge Instructions [id number] 40 [id number]#1.00TIFF Normal [facility] ED Clinical Summaryon 2023 ED Clinical Summary [place] [id number] ED Clinical Summary Person Information Name: TIA MONROE Maria Elena/[facility] Age: 33 Years : 1990 Sex: [...] 23:59:00 05/11/2023 23:59:00 05/11/2023 23:59:00 ADDRESS: [address] [facility] [id number] PHYS DOC NOTES: MEDICAL INFORMATION: Prescriptions Given: New Medications [facility], [address] [place], [place] [id number], [phone] amoxicillin-clavula cindi (Augmentin 875 mg oral tablet) [...] Medication PATIENT EDUCATION INFORMATION: Instructions: Dental Pain, Cmjm-if-Rnau Follow up: With: Address: When: Linda Sheppard DO [address], [address], [address] [place], [place] [phone] In 3 days 05/14/2023 DIAGNOSIS: 1:Pain, dental; 2:Infected dental caries; 3:First trimester ; Periapical abscess without sinus Normal [facility] ED Note-Physicianon 05-12-19 ED Note-Physician Basic Information Time Seen: Violet Walters PA-C 05/11/2023 22:59 Chief Complaint pt arrives for c/o dental pain on the right upper side. states cannot see her denitist d/t being . pt states seen in [facility] and started on amoxcillin. History of Present Illness Patient is a 7-week 33-year-old female with history of PCOS that presents to the ED with her for evaluation of dental pain. Patient says pain started on Tuesday. She localizes it to the right upper jaw, radiates into her face ear and cheek. [facility] and was initiated on amoxicillin [...] day(s), # 14 tab(s), Refills(s) 0, Pharmacy: [facility], 160, cm, 05/11/23 21:53:00 EST, Height/Length Dosing, 110, kg, 05/11/23 21:53:00 EST, Weight Dosing chlorhexidine topical, 0.018 gm, 15 mL, Oral, BID, 480 mL, Refill(s) 0, (swish and spit; do not swallow), [facility], 160, cm, 05/11/23 21:53:00 EST, Height/Length Dosing, 110, kg, 05/11/23 21:53:00 EST, Weight Dosing (more content not included)... Normal [facility] Comment on above: Result Comment: Elec [...] these instructions at home: Medicines ? Take roir-pjx-uwnwdvr and prescription medicines only as told by [...] to the area. Brushing your teeth ? Marble your teeth twice a day using a [...] when you eat or drink. ? Take rqtv-djc-syenxks and prescription medicines only as told by [...] Reviewed: 11/26/2020 Elsevier Patient Education ? 2022 [employer] Normal [facility] ED Patient Summaryon 024 ED Patient Summary [address] [address] Patient Discharge Instructions Person Information Name: TIA MONROE Age: 33 Years Arrival Date: 05/11/2023 21:25:54 Discharge Diagnosis: 1:Pain, dental; 2:Infected dental caries; 3:First trimester ; Periapical abscess without sinus Primary Care Physician: Linda Sheppard DO Provider Information Primary Provider: Zac Fields M.D. [employer] Technical Officer:Violet Walters PA-C The exam and treatment you received in the Emergency Department were for an urgent problem and are not intended as complete care. It is important that you follow up with a doctor, nurse practitioner, or physician?s planning assistant for ongoing care. If your symptoms [...] Instructions: With: Address: When: Linda Sheppard DO [address] [place] [address] [address] , [facility] [address] [place] [address] In 3 days 05/14/2023 In the event that this physician does not participate in your insurance network, please consult with your insurance company to find a nearby participating provider. Patient Education Materials: Dental Pain, Psye-sp-Xxku A MESSAGE TO ALL PATIENTS REGARDING OPIOIDS PRESCRIPTION OPIOIDS: WHAT YOU NEED TO KNOW Prescription opioids can be used to help relieve hemtbrpl-aa-ljnnxz pain and are often prescribed following a [...] be struggling with addiction, tell your health managed care director an (more content not included)... [facility] Consent for Treatmenton Consent for Treatment [id number] 96#1.00TIFF [facility] Progesteroneon 12-28-2022 Progesterone 12.60 ng/mL [facility] Comment on above: Result Comment: Female: Follicular phase <0.19 ng/mL Ovulation phase 0.06-4.14 ng/mL Luteal phase 4.11-14.5 ng/mL Postmenopausal <0.13 ng/mL Performed By: #### P NICKY #### [employer] [address] [place] [address] Media Strategist: Thor Hernández MD Progesteroneon 11-24-2022 Progesterone 7.18 ng/mL High 0.0-0.15 [facility] Comment on above: Result Comment: Female: Follicular phase <0.19 ng/mL Ovulation phase 0.06-4.14 ng/mL Luteal phase 4.11-14.5 ng/mL Postmenopausal <0.13 ng/mL Performed By: #### P NICKY #### [employer] [address] [place] [address] Media Strategist: Thor Hernández MD , Urineon 3 HCG ( test) Ql (U) Negative NEGATIVE [facility] XR ANKLE RIGHT (MIN 3 VIEWS) on 09-04-2022 FINDINGS/IMPRESSION : No acute displaced fracture identified. Ankle mortise is symmetric. There is a 1 mm tiny calcified body which is remote appearing near the distal fibular tip. Minimal ankle soft tissue edema. [facility] EXAM: XR ANKLE RIGHT (MIN 3 VIEWS) INDICATION: Reason for exam:->swelling COMPARISON: None. TECHNIQUE: Radiographs as described above [facility] Bettye Johnson MD - 09/04/2022 EXAM: XR ANKLE RIGHT (MIN 3 VIEWS) INDICATION: Reason for exam:->swelling COMPARISON: None. TECHNIQUE: Radiographs as described above IMPRESSION: FINDINGS/IMPRESSION : No acute displaced fracture identified. Ankle mortise is symmetric. There is a 1 mm tiny calcified body which is remote appearing near the distal fibular tip. Minimal ankle soft tissue edema. [facility] Radiology Study observation (narrative) [facility] XR ANKLE RIGHT (MIN 3 VIEWS) Ordered By: Bettye Johnson on 09-04-[address] [facility] Work Phone: Coding Summary.on 07-09-2022 Coding Summary. CD:[id number] bWw+PGhlYWQ+BA3QPMA sW31ljFClnR7nO3ZYBH lOSywgQVBQTElOSyIgb pGqSN5jiOWzIYAt IC8+TR3pFZGcKvlsdLE xg0J1fWK0G67min1jSR nztVO7YXPrYnNpervfl 8tvcKm4IFgoTyniYjWf WTMqhE13ANV5oY92Bs0 3kTCrtZNom8savNw9Kz PpVIPxDZC8sNgbNEjur 1MhUJAkN94qnZUmq1J4 IGNvbGxhcHNlOyBlbXB 1wK9rGFjlvjsap5nrfb doBoz6lq00pCTed4B0b SC2Z8ItnpF4VUWqvJQc BimmtQWXdI2lyrrma4v tbtscWoRxMWBuWTy9RZ a2OXCstEsxIlCyPG21L EZ6XCDjhtUmE0OdXGNf oXymZvI2n4E9Nu9KX1G UGdxzP1SJJRBGVIjreF Q+WU00zf49T9IiUzieQ al8YNVsDYM7hFD0wM4w NJXlOYkgq8J1ePO7A6F kjyIkgr7yt3tfZXHnBD raQ72klMUia6W7CFZxv JM9FHSjxYlpUsTgoV77 Oyc+AMIqsHqcu1CxNpj ic0gtc5dnyWo3FzqaOC DjenDybFbxLDS9f8KwY u8gFNPgxLK9wQD2qW8r DnZdNdW0VQmvY888AkB dtVEjXoujI82qW1IuwR A+USVnCwu5OCDnqXerT U0aF4GnEBLpofmchRMo bBltRE2qLUKgatlfTPO afS9xEPTjS2w1OuEkOk N9TGbdW7EqHAYqcsouR s01gW4sXqEbIeS5AJez Z4IxmiY0YBQvqMZwVKb uCZJ1T27jt0U1GIQpHW WtOUX9jYF4lS8koZvbb jogbGVmdDsgdmVydGlj TXvdXTxwY565YDJntEp nPkNvZGluZyBEYXRlOi AgMDUvMDUvMjAyMzwvd GQ+FKAyRRR3nMtqFUVz iFGoHEfoPp2tfApkoMf iRE0nWECaiectASLeuW 4tWLSqhJCdbXnfVF6yO IHrgmglu322FhSjJWD6 GYTpxJZxG2WtgZ5fUtU zFBHaHUTfZ1ZvdLXkMA beE333YKamJlT3RYRcg kHhX6GlFAGnpLuzZxH9 t4V4Vo4Fz4LycmcpM7A mjYFuNuHcJmjoNWg4R2 RkPjwvdHI+LX41RNQoA G45OLy0GVY1cXxeIBdx WJOsI9TiwA0aWnPoBGB kZGRkOyc+PHRhYmxlIH dpZHRoPScxMDAlJyBzd BkuDQ9uTp0yYCOuLNSe tOjycVZfJwHgu8jdXUA iFDdlJP5ukQibO8OwoQ A8EVAvd7n0Ft36D15rN 3JvdXA+VKNgfOP9bFY1 mG8kPaWzHvC6JIobE57 0WvZckHRbFasmd2xju6 jgzPu2OaF5YJEjndYpt NnoQDI8g0JaWw66U39i IHdpZHRoPSIxNSUiIHZ xdSwqks6svU5dGx5+PG HdfAA6tKJ2vY7cCtQkC yJ7DQysL757GmDkdCAo Ggirk6exd5beyTu2PsG qLCZjyzPzdQieMUM2v5 TdPu01F9CfwKigw2WgP qu8tc44jSMjt8O5xMM2 M3YrQNIprofwwQXpbIj lXF3eRUJxkurtKNQieO 9bXKMwJ2q2DsXjYjS5H ElnN8ItvaK3MSFjtSMn WMNzbIDGpG5kiyfam7c arzasRiVbOSDkNYm0OH c1TGDkpQepOpUxTKN0V nI3QWI4nISyeQ9rzIaa losedK0xKmo+LNF4eGW hqJBLMO4cAbewqZL+PH ZdCPF0oKxxGLhtSVRia H3gZVOeV8t8FoNbPxP7 FNhyP4RsbyJ1AVPgwIK fMQAyrAZYmO1ajtfjc0 hjgwnoPtPyMTXlYFy5T Au3IDLxhZnaGpGqGKH8 NfM0SXG2rAEgxY4tjHw qlmhmhX1kOiq+QmlydG tsVXS7OXl9L1HjTpn7G OQalEweDY3tyVOpCXqn Nk3htWhqlUxsRD1eKKS edmfja635XpNma6fqIH RswCRoNJnjRGC5S39ze 0V8PEKsUXAfJOH1mEN6 nE4ztZmuhqwnaETjsPp gdmVydGljYWwtYWxpZ2 20RNJsoRnwDdNnNCj1U 0WbXbb4VUFdmAbfTA5u gHClBIdrGh4evElyvKp cFK1rHXLmumrxh083Hw Juo3bwEIDafBRfTCqiB MU7V95fu5Y9SKLuJRGg KXV1eRV4lW6xrQkxcwu gbGVmdDsgdmVydGljYW rsPVrgM061CSRsoOxrT gAjhSk2R7DuFsp4SGIg lSqnPU9pfBExVOugFi0 otJrexFnqJY9pRVItao ddm733RnJew6ttRGTto INpZGhlJXO0V63mo1R7 QBVzZHMgHNG7zRY1jT0 hbGlnbjogbGVmdDsgdm YtpVgdVRliDTnxD701C HRvcDsnPlBhdGllbnQg PRgfFBz7N2JwWqqdpPG +EI33NBGqBP38kHKesR Llg1kocVk1ZyHaSQUpU HY7dBpaFBthh9LkGETj R09ulGOtb8M8ZOAqnXu kyTOyMaOfwPY7fU0qRW txmxtfo1mqqpunEgfnx 3hdye62lN08W07tBLvk ZHRoPSIzMCUiIHZhbGl ujf6hkX8tBb1+PGNvbC L4pBM5fJ9vDJPnGiG0O BhwQ788NbDxmXDiEstm d0rrb9xrvVu3YgL3DSB gvkQcdLjeLUC9h4JbTw 79K51sKKgfDHCjQOXqU DHdFUOyaFignu8xuZ0j Ii8+BCBkqNA3nGH6fM5 iJjJhMfD4TYsdP563Ds IsmFKgNcwwV32uG9Eed XA+FFYjRcr6XZDilEzu OF4viRUaSKfbVn6ySWD 5FtDmGeOtJWrlO1CuWH HterghabdncYD1ZKBfC CIkkM67Lr4jbPqqSZBc fKKHbE7beqjvj8qkkda iStEuATMpWBr0RIk1VZ EafQuqWtGuDLN7SeR1X DW1nIDxrS8btJvektts uE7cV8OeBWDtsfycUz1 9oK4eTxBjFdX7FIfqPu c+Xw5GPjWWUpfwJkGZI kRJRTwvdGQ+PHRkIHN0 qVidCAawTVHibF5aAQL uF3a7FqGjUdW6UNzjB5 AmZCFdwsrkGd23zV7fA aBjCqR2CGmoN2DhzbQ9 JPMgaQEeBNdsLYS6T51 mv6G4RYZzFONbHVM5kL I5hY4ypAebhndgnMIee DsgdmVydGljYWwtYWxp P568EEYitRafGpSlDgB 7YsO9IRQ0K7YyKms4CD ErhPwgRN3trLKiVTlmM t8feNsflGqvAH1kSDHr nujtDTGauL9eASQfyDP dnSlyDH0qYVLvednvu9 97TuZlDUS2DLUgsPDhK 5RlhQ1uFaMrFUFzEXOi I3FeuXIcEXqnI868QGg pXeI5ODOaszKoM9MzQI TavVyfVsU4c5U3Ei4uL iBZZWFyczwvdGQ+PHRk QWD7gHliEPjaEOEvdZ7 nWRAuY7e4YgVnCrX6PP xoY6CcYEUjtqddYo63v Z7aLeHgFbX4FCcnT9Br qgQ6KJJkcMArKQoaMTJ 1P70qz2S7MMFzFVKpRI G8bNI3sX5naSjsnhjge GVmdDsgdmVydGljYWwt QLktM290BMDdnRxfGwV lbWFsZTwvdGQ+PHRkIH X6sQlpTZqnTKAfbO3mG AWnT3s6GhXdKbV7SPco B0VnHCQhsdexXp33rI4 mXxBuLxV7TNzqX9Wzhp L6XRVxkWHfKPduCUZ1K 37wh2X7KBFlJZPnHYG9 pPH1oD4ibTliotsscMO mdDsgdmVydGljYWwtYW jfD970OUUtrNyzZoWix B8hKDLpAYrgsUKjtIss dGQ+YY89up25Z1AiPum uBfx2ELBiDIN9eHK7kB 9mSANyKAfue9G9mWC2M 4JnkyXlkf5wl2igFZEi RTwcH33noPMvo8U0LPO eaOP8PPBkuXpkNqInkB 93Oyc+DLPuwJlop5DoL newk5kcx5zprUy4LjQx RPAuzkJqlDfdWAQ6n0N zQn28R30iENnmBMEjXY FrBMKnIMTagIvhxz9ph G9wIi8+KTSdiZW2cAT3 dY8tZsVlJjL9AEbqK57 5NtBcgBSjBjvzp3qan7 notHq8QnAoKXAbezRss YuxAFN3c4DfZp35R3Va lEjqd9ApNfj6kx75hGJ wg6V4jBL8U9QuOUJsnr nroHBxhLjqAU8zFZDkl arkYBOwjP6yRPHtL2i4 NdDfThE3VQtyW4SwauS 6IGJvbGQgMTBwdCBUaW 5gumatp5ekrlyyOrVtN KRxKYe3SVj3BLBohDcq WeWnHOK9WnA1MPA2fWG apG2ziQqbxradjV7aBq c+NGu1f5ewsWExBP3ra CU0KX79WG86pFOqz7R7 xLG1A7MgPJNnetyptkd euZI4VQHcINJivY95Vu 5arRiiMm6hPVHtLAH6H AIhuZGnU3XhfK2aEyWu ETIpJKAbY2JlrJBlNIv vD256KQexOiB0YEHknt ZeW1YeVZUqjGiqPpF0u 2N7Bt2RMV61HI10IL94 nNKgj8A2zIA0M1BgKMM wodevowlkzTU1ZNLyKT MmxW25Uw2bvTfsBd3uC PTeVST1CPEvzNSxG5Xk aA9xOhLtJJPlMRTmO5X ltXIcAQxnW750YIrdYq D1NNHjrkHoI9AzDUKyc TftAyS7x5D4Qc8IFz82 IU89JO78pKRzs8L4yFT 6A7SgWLAbhlttvykahW B4EAHuAITopT22Qb2dg GzkBr7bBAAxTZN2ONHz tCKvE7LqmP2cSmFzFGD vBQOjJ3MnrBHkXHpkM9 54EFnmDkK0VXEjvgQlK 0HbCWZdtYfaKnC7x7C7 Ca6WWWylgjj6P4DjCbq vdHI+HV34EKGeUF12vU OdsRYzd0ppfFe5SbTnP CGyXYW6vMowTQugk9Yw ZFDxM54a (more content not included)... Normal [facility] Consultation Noteon 07-07-19 Consultation Note Patient: [...] Problems Acute hepatitis C / SNOMED CT 342583310 / Confirmed Anxiety / SNOMED CT 30245329 / Confirmed Apnea, sleep / SNOMED CT 046818683 / Confirmed Dental caries / SNOMED CT 748021783 / Confirmed PCOS (polycystic ovarian syndrome) / SNOMED CT 882107083 / Confirmed Histories Past Medical History: Active Dental caries ([id number]) Family History: No family history items have [...] Patient agrees with plan of care. Normal [facility] Comment on above: Result Comment: Elec tronically Signed By: Bing PEDRAZA, Todd Lilly\.franchesca\Date and Time Signed: 07/06/22 13:28 EDT DHEA SERUMon 07-04-2022 Dehydroepiandrosterone (DHEA) 220 ng/dL Normal 31-701 [facility] Comment on above: Performed By: #### Vijaya OMER. ####[facility] [id number] [place], [place] [address]IaSelwyn Sanchez DHEA-SULFATEon 06-30-2022 DHEA-Sulfate 106.0 ug/dL Normal 84.8-378.0 [facility] Comment on above: Performed By: #### Vijaya TATUM ####[facility] [id number] [place] [address]Dr. Nito Sanchez FSHon 06-30-2022 FSH 6.6 mIU/mL Normal [facility] Comment on above: Result Comment: Adul t Female: Follicular phase 3.5 - 12.5 Ovulation phase 4.7 - 21.5 Luteal phase 1.7 - 7.7 Postmenopausal 25.8 - 134.8 Performed By: #### L BCFS #### [facility] [address] [place] [address] Dr. Nito Sanchez LUTEINIZING HORMONE (LH)on 0 06-30-2022 LH 18.9 mIU/mL Normal [facility] Comment on above: Result Comment: Adul t Female: Follicular phase 2.4 - 12.6 Ovulation phase 14.0 - 95.6 Luteal phase 1.0 - 11.4 Postmenopausal 7.7 - 58.5 Performed By: #### L BCLH #### [facility] [address] [place] [address] Dr. Nito Sanchez PROLACTINon 06-30-2022 Prolactin 5.3 ng/mL Normal 4.8-23.3 [facility] Comment on above: Performed By: #### P ROLAC #### [facility] [address] [place] [address] Dr. Nito Sanchez CBC AUTO DIFFon 06-29-2022 BASO # 0.1 103/ul Normal 0.0-0.1 [facility] Comment on above: Performed By: #### C BC #### [facility] [address] [place] [address] Dr. Nito Sanchez Basophils/100 WBC (Bld) 0.5 % Normal 0.2-2.0 [facility] Comment on above: Performed By: #### C BC #### [facility] [address] [place] [address] Dr. Nito Sanchez EO # 0.2 103/ul Normal 0.0-0.7 [facility] Comment on above: Performed By: #### C BC #### [facility] [address] [place] [address] Dr. Nito Sanchez Eosinophils/100 WBC (Bld) 1.6 % Normal 0.9-7.0 [facility] Comment on above: Performed By: #### C BC #### [facility] [address] [place] [address] Dr. Nito Sanchez Erythrocyte distribution width (RBC) [Ratio] 13.6 % Normal 11.0-15.0 [facility] Comment on above: Performed By: #### C BC #### [facility] [address] [place] [address] Dr. Nito Sanchez Hematocrit (Bld) [Volume fraction] 39.7 % Normal 36.0-48.0 [facility] Comment on above: Performed By: #### C BC #### [facility] [address] [place] [address] Dr. Nito Sanchez Hemoglobin (Bld) [Mass/Vol] 13.1 g/dL Normal 12.0-16.0 [facility] Comment on above: Performed By: #### C BC #### [facility] [address] [place] [address] Dr. Nito Sanchez IG # 0.05 10e3/ul Critically high 0.00-0.03 [facility] Comment on above: Performed By: #### C BC #### [facility] [address] [place] [address] Dr. Nito Sanchez IG % 0.5 % Normal 0.0-0.5 [facility] Comment on above: Performed By: #### C BC #### [facility] [address] [place] [address] Dr. Nito Sanchez LYMPH # 2.6 103/ul Normal 1.2-3.8 [facility] Comment on above: Performed By: #### C BC #### [facility] [address] [place] [address] Dr. Nito Sanchez Lymphocytes/100 WBC (Bld) 25.3 % Normal 20.5-60.0 [facility] Comment on above: Performed By: #### C BC #### [facility] [address] [place] [address] Dr. Nito Sanchez MANUAL DIFF REQ NO Normal [facility] Comment on above: Performed By: #### C BC #### [facility] [address] [place] [address] Dr. Nito Sanchez MCH (RBC) [Entitic mass] 27.1 pg Normal 26.7-34.0 [facility] Comment on above: Performed By: #### C BC #### [facility] [address] [place] [address] Dr. Nito Sanchez MCHC (RBC) [Mass/Vol] 33.0 g/dL Normal 29.9-35.2 [facility] Comment on above: Performed By: #### C BC #### [facility] [address] [place] [address] Dr. Nito Sanchez MCV (RBC) [Entitic vol] 82.2 fL Normal 81.0-99.0 [facility] Comment on above: Performed By: #### C BC #### [facility] [address] [place] [address] Dr. Nito Sanchez MONO # 0.5 103/ul Normal 0.3-0.8 [facility] Comment on above: Performed By: #### C BC #### [facility] [address] [place] [address] Dr. Nito Sanchez Monocytes/100 WBC (Bld) 5.0 % Normal 1.7-12.0 [facility] Comment on above: Performed By: #### C BC #### [facility] [address] [place] [address] Dr. Nito Sanchez NEUT # 6.9 103/ul Critically high 1.4-6.5 [facility] Comment on above: Performed By: #### C BC #### [facility] [address] [place] [address] Dr. Nito Sanchez Neutrophils/100 WBC (Bld) 67.1 % Normal 43.0-75.0 [facility] Comment on above: Performed By: #### C BC #### [facility] [address] [place] [address] Dr. Nito Sanchez Platelet mean volume (Bld) [Entitic vol] 10.0 fL Normal 9.5-13.5 [facility] Comment on above: Performed By: #### C BC #### [facility] [address] [place] [address] Dr. Nito Sanchez PLT 313 103/ul Normal 150-450 [facility] Comment on above: Performed By: #### C BC #### [facility] [address] [place] [address] Dr. Nito Sanchez RBC 4.83 106/ul Normal 4.20-5.40 [facility] Comment on above: Performed By: #### C BC #### [facility] [address] [place] [address] Dr. Nito Sanchez WBC 10.3 103/ul Normal 4.0-11.0 [facility] Comment on above: Performed By: #### C BC #### [facility] [address] [place] [address] Dr. Nito Sanchez Consent for Treatmenton 06-06 Consent for Treatment [id number] 650#1.00CD:127 Normal [facility] FREE T4on 06-29-2022 Free T4 [Mass/Vol] 1.01 ng/dL Normal 0.76-1.46 [facility] Comment on above: Performed By: #### F T4 #### [facility] [address] [place] [address] Dr. Nito Sanchez GLYCOHEMOGLOBIN A1Con 2022 ADA RECOMMENDATION SEE BELOW Normal [facility] Comment on above: Result Comment: ADA RECOMMENDED LIMIT 4.0 - 6.0 ADA THERAPEUTIC TARGET < 7.0 ACTION SUGGESTED > 7.0 Performed By: #### A 1C #### [facility] [address] [place] [address] Dr. Nito Sanchez Glucose [Mass/Vol] 108 mg/dL Normal [facility] Comment on above: Performed By: #### A 1C #### [facility] [address] [place] [address] Dr. Nito Sanchez HbA1c (Bld) [Mass fraction] 5.4 % Normal 4.5-6.2 [facility] Comment on above: Performed By: #### A 1C #### [facility] [address] [place] [address] Dr. Nito Sanchez HIPAA Forms Officeon 023 HIPAA Forms Office [id number] 602#1.00CD:127 Normal [facility] Legal Correspondence Officeo n 06-29-2022 Legal Correspondence Office [id number] 270#1.00CD:127 Normal [facility] Legal Correspondence Office [id number] 787#1.00CD:127 Normal [facility] Office/Clinic Note-Physician on 06-29-2022 Office/Clinic Note-Physician [id number] 515#1.00CD:127 Normal [facility] Orders Officeon 06-29-2022 Orders Office [id number] 642#1.00CD:127 Normal [facility] PREG QUANT HCGon 06-29-2022 HCG QUANT 1 mIU/mL Normal [facility] Comment on above: Performed By: #### T SH, PREGQNT #### [facility] [address] [place] [address] Dr. Nito Sanchez HCG RANGE SEE BELOW Normal [facility] Comment on above: Result Comment: 5-50 0.2-1 WEEK 50-500 1-2 WEEKS 100-5,000 2-3 WEEKS 500-10,000 3-4 WEEKS 1,000-50,000 4-5 WEEKS 10,000-100,000 5-6 WEEKS 15,000-200,000 6-8 WEEKS 10,000-100,000 2-3 MONTHS Performed By: #### T SH, PREGQNT #### [facility] [address] [place] [address] Dr. Nito Sanchez Patient Correspondenceon Patient Correspondence [id number] 946#1.00CD:127 Normal [facility] Patient Correspondence [id number] 137#1.00CD:127 Normal [facility] Patient Correspondence [id number] 273#1.00CD:127 Normal [facility] Patient Correspondence [id number] 879#1.00CD:127 Normal [facility] Patient Correspondence [id number] 956#1.00CD:127 Normal [facility] Patient History Officeon Patient History Office [id number] 983#1.00CD:127 Normal [facility] Patient History Office [id number] 721#1.00CD:127 Normal [facility] Radiology Outside Office [employer] yon 06-29-2022 Radiology Outside Office Copy [id number] 142#1.00CD:127 Normal [facility] TSHon 06-29-2022 TSH 0.848 uIU/mL Normal 0.358-3.740 [facility] Comment on above: Performed By: #### T , PREGQNT #### [facility] [address] [place] [address] Dr. Nito Sanchez US PELVIS AND TRANSVAGon [...] by: BETTYE MIYALATA Date: 2022-06-29 15:17 Normal [facility] PAP ACOG PANEL 2: 30 to 65on 06-19-2022 . . Normal [facility] Comment on above: Result Comment: Perf ormed at: WB Performed By: #### 4 [id number] #### [facility] [address] [address] [address] Nito Sanchez Age Gdln ACOG Testing - Normal [facility] Comment on above: Performed By: #### 4 [id number] #### [facility] [address] [address] [address] Nito Sanchez DIAGNOSIS: Comment Normal [facility] Comment on above: Result Comment: NEGA TIVE FOR INTRAEPITHELIAL LESION OR MALIGNANCY. Performed at: WB Performed By: #### [id number] #### [facility] [address] [address] [address] Nito Sanchez HPV Aptima Negative Normal Negative [facility] Comment on above: Result Comment: This nucleic acid amplification test detects fourteen high-risk HPV types (16,18,31,33,35,39,45,51,52,56,58,59,66,68) without differentiation. Performed at: =G Performed By: #### 4 [id number] #### [facility] [address] [address] [address] Nito Sanchez HPV Genotype Reflex Comment Normal [facility] Comment on above: Result Comment: Crit eria not met, HPV Genotype not performed. Performed at: WB Performed By: #### 4 [id number] #### [facility] [address] [address] [address] Nito Sanchez Methodology: Comment Normal [facility] Comment on above: Result Comment: This liquid based ThinPrep(R) pap test was screened with the use of an image guided system. Performed at: WB Performed By: #### 4 [id number] #### [facility] [address] [place] [address] Dr. Niot Sanchez Note: Comment Normal [facility] Comment on above: Result Comment: The Pap smear is a screening test designed to aid in the detection of premalignant and malignant conditions of the uterine cervix. It is not a diagnostic procedure and should not be used as the sole means of detecting cervical cancer. Both false-positive and false-negative reports do occur. . Performed at: WB Performed By: #### 4 [id number] #### [facility] [address] [address] [address] Nito Sanchez Performed by: Comment Normal [facility] Comment on above: Result Comment: Nanda Treadwell, Special Distribution Clerk (ASCP) Performed at: WB Performed By: #### 4 [id number] #### [facility] [address] [place] [address] Dr. Nito Sanchez Specimen adequacy: Comment Normal [facility] Comment on above: Result Comment: Sati sfactory for evaluation. Endocervical and/or squamous metaplastic cells (endocervical component) are present. Performed at: WB Performed By: #### 4 [id number] #### [facility] [address] [place] [address] MAXILLOFACIAL WO CONTRAST on 05-11-2022 Recent extraction of the right mandibular and maxillary second molar teeth with presence of air in the respective tooth sockets. No evidence of edema in the sublingual space or the buccal space Probable periapical abscess involving the right maxillary premolar tooth adjacent to the first molar tooth. [facility] RIS CONSOLIDATED EXAM: CT MAXILLOFACIAL WO [...] visualized intracranial contents show no acute process. [facility] Phil Romero MD - 05/11/2022 EXAM: [...] tooth adjacent to the first molar tooth. [employer] Work Phone: Radiology Study observation (narrative) [employer] Work Phone: CT MAXILLOFACIAL WO CONTRAST Ordered By: Phil Mary on 05-11-2022 [employer] Work Phone: Urine Preg (Lab)on 3 Beta HCG ( test) Ql (U) Negative NEGATIVE [place] HCG, Quantitative, on 03-29-2022 hCG Quant NINF [employer] Comment on above: Non-preg premeno <=5 Postmeno <=8 Male <=3 If HCG results do not concur with clinical observations, additional testing to confirm results is recommended. [employer] COVID-19, Rapidon 07-22-2021 SARS-CoV-2 (COVID-19) RNA KALPESH+probe Ql (Unsp spec) Not detected Not Detected [facility] Comment on above: Rapid NAAT: The [...] management decisions. Fact sheet for Healthcare Providers: https://www.fda.gov/media/659748/download Fact sheet for Patients: https://www.fda.gov/media/642517/download Methodology: Isothermal Nucleic Acid Amplification Specimen Description .NASOPHARYNGEAL SWAB [facility] Strep Screen Group A Throato n 07-22-2021 S. pyogenes Ag Ql (Throat) Negative NEGATIVE [facility] Comment on above: Rapid Strep A negati ve. A negative Rapid Group A Strep Screen result does not rule out the possibility of Group A Streptococci in the specimen. A Group A Strep DNA test is available upon request. Source .THROAT SWAB [facility] MR LUMBAR SPINE WITHOUT CONT [facility] 06-17-2021 MR LUMBAR SPINE WITHOUT CONTRAST [...] foraminal stenosis. 2. No fracture or spondylolisthesis. [facility] Workstation ID: [id number] Dictated by: JONATHAN LINARES on TueJun 18, 2021 11:51:00 AM EDT Transcribed by: ZULMA CARDENAS on TueJun 18, 2021 11:58:13 AM EDT Finalized by: JONATHAN LINARES on TueJun 18, 2021 12:35:45 PM EDT [facility] Comment on above: Order Comment: Injur y/Trauma or Illness?:Illness/Other How long have you had these symptoms (acute/chronic)?:Chronic Reason for exam?:LBP AND bilat hip pain x years, nki Type of Exam?:Subsequent/Follow-up Additional signs and symptoms?:. CBC panel Auto (Bld)on 04-16 Erythrocyte distribution width (RBC) [Entitic vol] 14.0 % 11.6 - 14.8 % [facility] Hematocrit (Bld) [Volume fraction] 38.6 % 36.0 - 46.0 % [facility] Hemoglobin (Bld) [Mass/Vol] 12.1 g/dL 12.0 - 16.0 g/dL [facility] Interpretation and review of laboratory results Abnormal [facility] MCH (RBC) [Entitic mass] 25.4 pg Low 26. 0 - 34.0 pg [facility] MCHC (RBC) [Mass/Vol] 31.3 g/dL 31.0 - 37.0 g/dL [facility] MCV (RBC) [Entitic vol] 81.1 fL 80.0 - 100.0 fL [facility] Platelet mean volume (Bld) [Entitic vol] 10.0 fL 9.4 - 12.4 fL [facility] Platelets (Bld) [#/Vol] 379 10*3/uL [facility] RBC (Bld) [#/Vol] 4.76 10*6/uL [facility] WBC (Bld) [#/Vol] 9.85 10*3/uL [facility] Comprehensive metabolic 2000 panelon 04-16-2021 Albumin [Mass/Vol] 3.7 g/dL 3.2 - 5.2 g/dL [facility] ALP [Catalytic activity/Vol] 95 U/L 40 - 140 U/L [facility] ALT [Catalytic activity/Vol] 36 U/L 14 - 65 U/L [facility] Anion gap [Moles/Vol] 11 mmol/L 10 - 2 0 mmol/L [facility] AST [Catalytic activity/Vol] 22 U/L 0 - 45 U/L [facility] Bilirubin [Mass/Vol] 0.3 mg/dL 0.0 - 1 .3 mg/dL [facility] Calcium [Mass/Vol] 9.3 mg/dL 8.4 - 10. 2 mg/dL [facility] Chloride [Moles/Vol] 105 mmol/L 98 - 10 8 mmol/L [facility] Creatinine [Mass/Vol] 0.68 mg/dL 0.40 - 1.10 [facility] GFR/1.73 sq M.predicted CKD-EPI (S/P/Bld) [Vol rate/Area] 117 >=60 mL/min/1.73 m2 [facility] Glucose [Mass/Vol] 76 mg/dL 65 - 99 mg/dL [facility] HCO3 [Moles/Vol] 26 mmol/L 21 - 32 mmol/L [facility] Interpretation and review of laboratory results Normal [facility] Potassium [Moles/Vol] 4.2 mmol/L 3.5 - 5.1 mmol/L [facility] Protein [Mass/Vol] 7.5 g/dL 6.0 - 8.0 g/dL [facility] Sodium [Moles/Vol] 138 mmol/L 135 - 145 mmol/L [facility] Urea nitrogen [Mass/Vol] 13 mg/dL 8 - 25 mg/dL [facility] Urea nitrogen/Creatinine [Mass ratio] 19.1 mg/mg [facility] The eGFR should be used for monitoring renal function only and not for medication dosing. [facility] Lipid 1996 panelon Cholesterol [Mass/Vol] 195 mg/dL 100 - 199 mg/dL [facility] Comment on above: National Cholesterol Education Program Guidelines: Cholesterol Desirable: <200 mg/dL Borderline High: 200-239 mg/dL High: greater than or equal to 240 mg/dL Cholesterol in HDL [Mass/Vol] 56 mg/dL 40 - 59 [facility] Comment on above: National Cholesterol Education Program Guidelines: HDL Cholesterol Low: <40 mg/dL Near Optimal: 40-59 mg/dL High: greater than or equal to 60 mg/dL Cholesterol in LDL [Mass/Vol] 109 mg/dL 10 - 130 mg/dL [facility] Comment on above: National Cholesterol Education Program Guidelines: LDL Cholesterol Optimal: <100 mg/dL Near Optimal/above Optimal: 100-129 mg/dL Borderline High: 130-159 mg/dL High: 160-189 mg/dL Very High: greater than or equal to 190 mg/dL Cholesterol non HDL [Mass/Vol] 139 mg/dL [facility] Comment on above: National Cholesterol Education Program Guidelines: NON HDL Cholesterol Desirable: <130 mg/dL Borderline High: 130-159 mg/dL High: 160-189 mg/dL Very High: > or = 190 mg/dL Cholesterol.total/Cholest elton in HDL [Mass ratio] 3.5 {ratio} ratio [facility] Comment on above: Female Cholesterol/H DL Ratio: Average risk: 4.4 1/2 average risk: 3.3 2 x average risk: 7.1 Interpretation and review of laboratory results Abnormal [facility] Triglyceride [Mass/Vol] 151 mg/dL High 30 - 150 mg/dL [facility] Comment on above: National Cholesterol Education Program Guidelines: Triglyceride Normal: <150 mg/dL Borderline High: 150-199 mg/dL High: 200-499 mg/dL Very High: greater than or equal to 500 mg/dL No Panel Informationon 04-16 [facility] TSH DL <= 0.005 mIU/L Qnon 0 04-16-2021 Interpretation and review of laboratory results Normal [facility] TSH Qn 1.04 m[IU]/L [facility] Basic Metabolic Panel w/ Ref ray to MGon 03-23-2021 Anion gap [Moles/Vol] 13 mmol/L 9 - 17 mmol/L [facility] Calcium [Mass/Vol] 8.8 mg/dL 8.6 - 10. 4 mg/dL [facility] Chloride [Moles/Vol] 104 mmol/L 98 - 10 7 mmol/L [facility] CO2 [Moles/Vol] 21 mmol/L 20 - 31 mmol/L [facility] Creatinine [Mass/Vol] 0.65 mg/dL 0.50 - 0.90 mg/dL [facility] GFR >60 >60 mL/min [facility] GFR Non- >60 >60 mL/min [facility] GFR/1.73 sq M.predicted MDRD (S/P/Bld) [Vol rate/Area] [facility] Comment on above: Average GFR for 30-3 9 years old: 107 mL/min/1.73sq m Chronic Kidney Disease: <60 mL/min/1.73sq m Kidney failure: <15 mL/min/1.73sq m eGFR calculated using average adult body mass. Additional eGFR calculator available at: http://www.Workspace/multiple_crcl_2012.htm GFR/1.73 sq M.predicted MDRD (S/P/Bld) [Vol rate/Area] NOT REPORTED [facility] Glucose [Mass/Vol] 104 mg/dL High 70 - 99 mg/dL [facility] Interpretation and review of laboratory results Abnormal [facility] Potassium [Moles/Vol] 3.7 mmol/L 3.7 - 5.3 mmol/L [facility] Sodium [Moles/Vol] 138 mmol/L 135 - 144 mmol/L [facility] Urea nitrogen (BldV) [Mass/Vol] 15 mg/dL 6 - 20 mg/dL [facility] Urea nitrogen/Creatinine (Bld) [Mass ratio] 23 High [facility] CBC Auto Differentialon 03-07 Absolute Eos # 0.10 [facility] th Absolute Immature Granulocyte NOT REPORTED [facility] Absolute Lymph # 0.[address] [facility] alth Absolute [place] # 0.50 [facility] lth Basophils (Bld) [#/Vol] 0.00 10*3/uL [facility] Basophils/100 WBC (Bld) 0 % 0 - 2 % [facility] Differential Type YES [facility]alth Eosinophils/100 WBC (Bld) 2 % 0 - 5 % [facility] Hematocrit (Bld) [Volume fraction] 34.6 % Low 36 - 46 % [facility] Hemoglobin.gastrointestin al spec 1 Ql (Stl) 11.7 g/dL Low 12.0 - 16.0 g/dL [facility] Immature Granulocytes NOT REPORTED 0 % [facility] Interpretation and review of laboratory results Abnormal [facility] Lymphocytes/100 WBC (Bld) 13 % Low 15 - 40 % [facility] MCH (RBC) [Entitic mass] 26.4 pg 26 - 34 pg [facility] MCHC (RBC) [Mass/Vol] 33.8 g/dL 31 - 3 7 g/dL [facility] MCV (RBC) [Entitic vol] 78.2 fL Low 80 - 100 fL [facility] Monocytes/100 WBC (Bld) 10 % High 4 - 8 % [facility] NRBC Automated NOT REPORTED per 100 WBC [facility] Platelet distribution width (Bld) [Ratio] 14.4 % 12.1 - 15.2 % [facility] Platelet Estimate NOT REPORTED [facility] Platelet mean volume (Bld) [Entitic vol] NOT REPORTED 6.0 - 12.0 fL [facility] Platelets (Bld) [#/Vol] 259 10*3/uL [facility] RBC (Bld) [#/Vol] 4.43 10*6/uL 4.0 - 5.2 m/uL [facility] RBC (Bld) [#/Vol] NOT REPORTED [facility] Segmented neutrophils/100 WBC (Bld) 75 % 47 - 75 % [facility] Segs Absolute 3.60 [facility] h WBC (Bld) [#/Vol] 4.8 10*3/uL [facility] WBC (Bld) [#/Vol] NOT REPORTED [facility] COVID-19, Rapidon 03-23-2021 Interpretation and review of laboratory results Abnormal [facility] SARS-CoV-2 (COVID-19) RNA KALPESH+probe Ql (Unsp spec) Detected Abnormal Not Detected [employer] Comment on above: Rapid NAAT: The specimen [...] this assay. Fact sheet for Healthcare Providers: https://www.fda.gov/media/379043/download Fact sheet for Patients: https://www.fda.gov/media/288187/download Methodology: Isothermal Nucleic Acid Amplification Results reported to the appropriate Health Department Specimen Description .NASOPHARYNGEAL SWAB [facility] No Panel Informationon 03-23 [facility] Exam [facility] A/B antigens on 03-23-2021 Special Requests NOT REPORTED [facility] [employer] Specimen Description .NASOPHARYNGEAL SWAB [facility] COVID-19, RapidOrdered By: Shayy Springer on 12-27-2020 SARS-CoV-2 (COVID-19) RNA KALPESH+probe Ql (Unsp spec) Not detected Not Detected [employer] Work Phone: Comment on above: Rapid NAAT: [...] management decisions. Fact sheet for Healthcare Providers: https://www.fda.gov/media/058833/download Fact sheet for Patients: https://www.fda.gov/media/671085/download Methodology: Isothermal Nucleic Acid Amplification Specimen Description .NASOPHARYNGEAL SWAB [employer] Phone: Office Max Phone: Strep Screen Group A ThroatO rdered By: Wayne Springer on 12-27-2020 S. pyogenes Ag IA Ql (Unsp spec) Rapid Strep A negative. A negative Rapid Group A Strep Screen result does not rule out the possibility of Group A Streptococci in the specimen. A Group A Strep DNA test is available upon request. [employer] Phone: Special Requests NOT REPORTED [employer] Phone: Specimen Description .THROAT [employer] Phone: [employer] Phone: XR SHOULDER RIGHT (MIN 2 VIE WS)Ordered By: Anuj Quinn on 11-20-2020 No acute fracture or traumatic malalignment. [employer] Phone: EXAMINATION: XR SHOULDER RIGHT (MIN 2 VIEWS), , 11/20/2020 9:30 PM EDT INDICATION: Reason for exam:->shoulder pain HISTORY: Ordering Provider Reason for Exam: Technologist Note: Additional: COMPARISON: None. TECHNIQUE: Right shoulder x-ray: 3 view(s). FINDINGS: No acute fracture. Glenohumeral and acromioclavicular joints are anatomically aligned. Joint spaces are preserved. Soft tissues are unremarkable. [employer] Phone: Ward, pn Incoming Radiant Results From [employer] - 11/20/2020 9:55 PM EDT EXAMINATION: XR [...] IMPRESSION: No acute fracture or traumatic malalignment. [employer] Work Phone: [employer] Work Phone: COVID-19, MOLECULARon 2020 SARS-CoV-2 (COVID-19) RNA KALPESH+probe Ql (Unsp spec) Not detected Normal Not Detected [facility] Comment on above: Order Comment: : [...] at the following links: For Healthcare Providers: https://www.fda.gov/media/636111/download For Patients: https://www.fda.gov/media/149236/download Performed By: #### L [id number] #### [facility] [address] [place] [address] Joe Rider M.D. [id number] HbA1c (Bld) [Mass fraction]O rdered By: Zelda Bautista on 07-09-2020 Interpretation and review of laboratory results Normal [facility] POC Hemoglobin [id number] By : Zelda Bautista on 07-09-2020 HbA1c (Bld) [Mass fraction] 5.2 % 4.0 - 6.0 % [facility] HbA1c (Bld) [Mass fraction]O rdered By: Lelo Gallegos on 06-09-2020 Interpretation and review of laboratory results Normal [facility] POC Hemoglobin [id number] By : Lelo Gallegos on 06-09-2020 HbA1c (Bld) [Mass fraction] 5.6 % 4.0 - 6.0 % [facility] CBC Auto Differentialon 03-08 Basophils (Bld) [#/Vol] 0.00 10*3/uL [place] Basophils/100 WBC (Bld) 0 % 0 - 2 % [place] Differential Type YES [place] Eosinophils (Bld) [#/Vol] 0.10 10*3/uL [place] Eosinophils/100 WBC (Bld) 1 % 0 - 5 % [place] Erythrocyte distribution width (RBC) [Ratio] 14.2 % 12.1 - 15.2 % [place] Hematocrit (Bld) [Volume fraction] 36.1 % 36 - 46 % [place] Hemoglobin (Bld) [Mass/Vol] 12.5 g/dL 12 - 16 g/dL [place] Interpretation and review of laboratory results Abnormal [place] Lymphocytes (Bld) [#/Vol] 2.00 10*3/uL [place] Lymphocytes/100 WBC (Bld) 14 % Low 15 - 40 % [place] MCH (RBC) [Entitic mass] 30.6 pg 26 - 34 pg [place] MCHC (RBC) [Mass/Vol] 34.5 g/dL 31 - 3 7 g/dL [place] MCV (RBC) [Entitic vol] 88.5 fL 80 - 100 fL [place] Monocytes (Bld) [#/Vol] 0.80 10*3/uL [place] Monocytes/100 WBC (Bld) 6 % 4 - 8 % [place] Platelet mean volume (Bld) [Entitic vol] NOT REPORTED 6 - 12 fL [place], [place] Platelets (Bld) [#/Vol] 300 10*3/uL [place] Platelets (Bld) [#/Vol] NOT REPORTED [place] RBC (Bld) [#/Vol] 4.08 10*6/uL 4 - 5.2 m/uL [place] RBC morphology finding Nom (Bld) NOT REPORTED [place] Segmented neutrophils/100 WBC (Bld) 79 % High 47 - 75 % [place] Segs Absolute 10.70 High [place] WBC (Bld) [#/Vol] 13.6 10*3/uL [place] WBC (Bld) [#/Vol] NOT REPORTED per 100 WBC [place] WBC Morphology NOT REPORTED [place] COVID-19, PCRon 03-26-2020 SARS-CoV-2, Rapid Not Detected Not Detected [place] Comment on above: Rapid NAAT: The [...] management decisions. Fact sheet for Healthcare Providers: https://www.fda.gov/media/729275/download Fact sheet for Patients: https://www.fda.gov/media/290331/download Methodology: Isothermal Nucleic Acid Amplification Source .THROAT [place] Comprehensive Metabolic Pane l w/ Reflex to MGon 03-26-2020 Albumin [Mass/Vol] 3.3 g/dL Low 3.5 - 5.2 g/dL [place] Albumin/Globulin [Mass ratio] NOT REPORTED [place] ALP [Catalytic activity/Vol] 57 U/L 35 - 104 U/L [place] ALT [Catalytic activity/Vol] U/L Low 5 - 33 U/L [place] Anion gap [Moles/Vol] 11 mmol/L 9 - 17 mmol/L [place] AST [Catalytic activity/Vol] 9 U/L <32 [place] Bilirubin Ql (U) 0.10 mg/dL Low 0.3 - 1.2 mg/dL [place] Bun/Cre Ratio 21 High [place] Calcium [Mass/Vol] 10.2 mg/dL 8.6 - 10. 4 mg/dL [place] Chloride [Moles/Vol] 104 mmol/L 98 - 10 7 mmol/L [place] CO2 [Moles/Vol] 21 mmol/L 20 - 31 mmol/L [place] Creatinine [Mass/Vol] 0.42 mg/dL Low 0.5 - 0.9 mg/dL [place] GFR >60 >60 mL/min [place] GFR Non- >60 >60 mL/min [place] GFR/1.73 sq M predicted among non-blacks MDRD (S/P/Bld) [Vol rate/Area] NOT REPORTED [place] GFR/1.73 sq M predicted among non-blacks MDRD (S/P/Bld) [Vol rate/Area] [place] Comment on above: Average GFR for 30-3 9 years old: 107 mL/min/1.73sq m Chronic Kidney Disease: <60 mL/min/1.73sq m Kidney failure: <15 mL/min/1.73sq m eGFR calculated using average adult body mass. Additional eGFR calculator available at: http://www.Workspace/multiple_crcl_2012.htm Glucose [Mass/Vol] 100 mg/dL High 70 - 99 mg/dL [place] Interpretation and review of laboratory results Abnormal [place] Potassium [Moles/Vol] 3.8 mmol/L 3.7 - 5.3 mmol/L [place] Protein [Mass/Vol] 6.5 g/dL 6.4 - 8.3 g/dL [place] Sodium [Moles/Vol] 136 mmol/L 135 - 144 mmol/L [place] Urea nitrogen [Mass/Vol] 9 mg/dL 6 - 20 mg/dL [place] Otheron 03-26-2020 SARS-CoV-2 [place] Immature granulocytes (Bld) [#/Vol] NOT REPORTED [place] Urinalysis, reflex to micros copicon 03-26-2020 Bilirubin [facility] [place] Color, UA YELLOW YELLOW [place] Glucose, Ur Negative NEGATIVE [place] Ketones Ql (U) Negative NEGATIVE [place] Leukocyte esterase Test strip Ql (U) Negative NEGATIVE [place] Nitrite, Urine Negative NEGATIVE [place] pH, UA 7.0 [place] Protein (U) [Mass/Vol] Negative NEGATIVE [place] Specific [place], UA 1.010 [place], [place] Turbidity UA CLEAR CLEAR [place] Urinalysis Comments [place] Urine Hgb Negative NEGATIVE [place] Urobilinogen, Urine Normal Normal [place] Wet Prep, Genitalon 11-20-19 Direct Exam MODERATE EPITHELIAL CELLS Abnormal [place] Direct Exam FEW TRICHOMONAS SEEN Abnormal [place] Direct Exam MODERATE BACTERIA Abnormal [place] Direct Exam Few epithelials coated with bacteria resembling clue cells. Abnormal [place] Direct Exam NO FUNGAL ELEMENTS SEEN [place] Interpretation and review of laboratory results Abnormal [place] Special Requests NOT REPORTED [place] Specimen Description .VAGINAL SPECIMEN [place] WBC (Bld) [#/Vol] FEW WBC SEEN Abnormal [place] Basic Metabolic Panelon - Anion gap [Moles/Vol] 15 mmol/L 10 - 2 0 mmol/L [facility] Calcium [Mass/Vol] 8.6 mg/dL 8.4 - 10. 2 mg/dL [facility] Chloride [Moles/Vol] 102 mmol/L 98 - 10 8 mmol/L [facility] Creatinine [Mass/Vol] 0.36 mg/dL Low 0.40 - 1.10 [facility] GFR/1.73 sq M predicted among non-blacks MDRD (S/P/Bld) [Vol rate/Area] The eGFR should be used for monitoring renal function only and not for medication dosing. [facility] GFR/1.73 sq M.predicted CKD-EPI (S/P/Bld) [Vol rate/Area] 146 >=60 mL/min/1.73 m2 [facility] Glucose [Mass/Vol] 102 mg/dL High 65 - 99 mg/dL [facility] HCO3 [Moles/Vol] 25 mmol/L 21 - 32 mmol/L [facility] Interpretation and review of laboratory results Abnormal [facility] Potassium [Moles/Vol] 4.1 mmol/L 3.5 - 5.1 mmol/L [facility] Sodium [Moles/Vol] 138 mmol/L 135 - 145 mmol/L [facility] Urea nitrogen [Mass/Vol] 5 mg/dL Low 8 - 25 mg/dL [facility] Urea nitrogen/Creatinine [Mass ratio] 13.9 mg/mg [facility] Hepatic Function Panelon Albumin [Mass/Vol] 3.3 g/dL 3.2 - 5.2 g/dL [facility] ALP [Catalytic activity/Vol] 253 U/L High 40 - 140 U/L [facility] ALT [Catalytic activity/Vol] 686 U/L High 0 - 40 U/L [facility] AST [Catalytic activity/Vol] 349 U/L High 0 - 45 U/L [facility] Bilirubin [Mass/Vol] 6.0 mg/dL High 0 - 1.3 mg/dL [facility] Bilirubin.conjugated [Mass/Vol] 5.1 mg/dL High 0 - 0.4 mg/dL [facility] Interpretation and review of laboratory results Abnormal [facility] Protein [Mass/Vol] 6.8 g/dL 6 - 8 g/dL [facility] alth Bilirubin, Directon 06-16-19 20 Bilirubin.conjugated [Mass/Vol] 5.4 mg/dL High 0 - 0.4 mg/dL [facility] Interpretation and review of laboratory results Abnormal [facility] CBCon 06-16-2019 Erythrocyte distribution width (RBC) [Entitic vol] 15.1 % High 11.6 - 14.8 % [facility] Hematocrit (Bld) [Volume fraction] 38.5 % 36 - 46 % [facility] Hemoglobin (Bld) [Mass/Vol] 12.9 g/dL 12 - 16 g/dL [facility] Interpretation and review of laboratory results Abnormal [facility] MCH (RBC) [Entitic mass] 29.1 pg 26 - 34 pg [facility] MCHC (RBC) [Mass/Vol] 33.5 g/dL 31 - 3 7 g/dL [facility] MCV (RBC) [Entitic vol] 86.9 fL 80 - 100 fL [facility] Nucleated RBC (Bld) [#/Vol] 0.00 10*3/uL [facility] Nucleated RBC/100 WBC (Bld) [Ratio] 0.0 % [facility] Platelet mean volume (Bld) [Entitic vol] 11.3 fL 9 - 15.5 fL [facility] Platelets (Bld) [#/Vol] 185 10*3/uL [facility] RBC (Bld) [#/Vol] 4.43 10*6/uL [facility] WBC (Bld) [#/Vol] 6.48 10*3/uL [facility] Comprehensive Metabolic Pane cayden 06-16-2019 Albumin [Mass/Vol] 3.3 g/dL 3.2 - 5.2 g/dL [facility] ALP [Catalytic activity/Vol] 217 U/L High 40 - 140 U/L [facility] ALT [Catalytic activity/Vol] 825 U/L High 0 - 40 U/L [facility] Anion gap [Moles/Vol] 14 mmol/L 10 - 2 0 mmol/L [facility] AST [Catalytic activity/Vol] 544 U/L High 0 - 45 U/L [facility] Bilirubin [Mass/Vol] 5.9 mg/dL High 0 - 1.3 mg/dL [facility] Calcium [Mass/Vol] 8.4 mg/dL 8.4 - 10. 2 mg/dL [facility] Chloride [Moles/Vol] 103 mmol/L 98 - 10 8 mmol/L [facility] Creatinine [Mass/Vol] 0.32 mg/dL Low 0.40 - 1.10 [facility] GFR/1.73 sq M predicted among non-blacks MDRD (S/P/Bld) [Vol rate/Area] The eGFR should be used for monitoring renal function only and not for medication dosing. [facility] GFR/1.73 sq M.predicted CKD-EPI (S/P/Bld) [Vol rate/Area] 152 >=60 mL/min/1.73 m2 [facility] Glucose [Mass/Vol] 92 mg/dL 65 - 99 mg/dL [facility] HCO3 [Moles/Vol] 26 mmol/L 21 - 32 mmol/L [facility] Interpretation and review of laboratory results Abnormal [facility] Potassium [Moles/Vol] 4.3 mmol/L 3.5 - 5.1 mmol/L [facility] Protein [Mass/Vol] 6.2 g/dL 6 - 8 g/dL [facility]th Sodium [Moles/Vol] 139 mmol/L 135 - 145 mmol/L [facility] Urea nitrogen [Mass/Vol] 4 mg/dL Low 8 - 25 mg/dL [facility] Urea nitrogen/Creatinine [Mass ratio] 12.5 mg/mg [facility] Bilirubin, Directon 06-15-19 20 Bilirubin.conjugated [Mass/Vol] 4.7 mg/dL High 0 - 0.4 mg/dL [facility] Interpretation and review of laboratory results Abnormal [facility] CBCon 06-15-2019 Erythrocyte distribution width (RBC) [Entitic vol] 14.8 % 11.6 - 14.8 % [facility] Hematocrit (Bld) [Volume fraction] 38.5 % 36 - 46 % [facility] Hemoglobin (Bld) [Mass/Vol] 12.6 g/dL 12 - 16 g/dL [facility] MCH (RBC) [Entitic mass] 29.0 pg 26 - 34 pg [facility] MCHC (RBC) [Mass/Vol] 32.7 g/dL 31 - 3 7 g/dL [facility] MCV (RBC) [Entitic vol] 88.5 fL 80 - 100 fL [facility] Nucleated RBC (Bld) [#/Vol] 0.00 10*3/uL [facility] Nucleated RBC/100 WBC (Bld) [Ratio] 0.0 % [facility] Platelet mean volume (Bld) [Entitic vol] 11.0 fL 9 - 15.5 fL [facility] Platelets (Bld) [#/Vol] 155 10*3/uL [facility] RBC (Bld) [#/Vol] 4.35 10*6/uL [facility] WBC (Bld) [#/Vol] 5.74 10*3/uL [facility] Comprehensive Metabolic Pane cayden 06-15-2019 Albumin [Mass/Vol] 3.2 g/dL 3.2 - 5.2 g/dL [facility] ALP [Catalytic activity/Vol] 193 U/L High 40 - 140 U/L [facility] ALT [Catalytic activity/Vol] 888 U/L High 0 - 40 U/L [facility] Anion gap [Moles/Vol] 15 mmol/L 10 - 2 0 mmol/L [facility] AST [Catalytic activity/Vol] 667 U/L High 0 - 45 U/L [facility] Bilirubin [Mass/Vol] 5.2 mg/dL High 0 - 1.3 mg/dL [facility] Calcium [Mass/Vol] 8.2 mg/dL Low 8.4 - 10. 2 mg/dL [facility] Chloride [Moles/Vol] 103 mmol/L 98 - 10 8 mmol/L [facility] Creatinine [Mass/Vol] 0.36 mg/dL Low 0.40 - 1.10 [facility] GFR/1.73 sq M predicted among non-blacks MDRD (S/P/Bld) [Vol rate/Area] The eGFR should be used for monitoring renal function only and not for medication dosing. [facility] GFR/1.73 sq M.predicted CKD-EPI (S/P/Bld) [Vol rate/Area] 146 >=60 mL/min/1.73 m2 [facility] Glucose [Mass/Vol] 122 mg/dL High 65 - 99 mg/dL [facility] HCO3 [Moles/Vol] 22 mmol/L 21 - 32 mmol/L [facility] Interpretation and review of laboratory results Abnormal [facility] Potassium [Moles/Vol] 3.8 mmol/L 3.5 - 5.1 mmol/L [facility] Protein [Mass/Vol] 5.8 g/dL Low 6 - 8 g/dL [facility]th Sodium [Moles/Vol] 136 mmol/L 135 - 145 mmol/L [facility] Urea nitrogen [Mass/Vol] 5 mg/dL Low 8 - 25 mg/dL [facility] Urea nitrogen/Creatinine [Mass ratio] 13.9 mg/mg [facility] NM HEPATOBILIARY WO EJECTION FRACTIONon 06-15-2019 [...] tree, and small bowel are not visualized. [facility] Opacified liver with no visualization of [...] regarding the presence or absence of cholecystitis. [employer] Workstation ID: [id number] [facility] Interface, Rad In [employer] Speechq - [...] regarding the presence or absence of cholecystitis. [employer] Workstation ID: [id number] [facility] APTTon 06-14-2019 aPTT Coag (Marybeth) [Time] 31.1 s [facility] Comment on above: PTT Therapeutic Range: 61.7-88.4 Therapeutic range corresponds to plasma heparin levels of 0.3-0.7 U/mL. Acetaminophen Levelon 2019 Acetaminophen [Mass/Vol] 9.1 [facility] Interpretation and review of laboratory results Normal [facility] Bilirubin, Directon 06-14-19 20 Bilirubin.conjugated [Mass/Vol] 4.3 mg/dL High 0 - 0.4 mg/dL [facility] Interpretation and review of laboratory results Abnormal [facility] CBC WITH AUTO DIFFERENTIALon 06-14-2019 Erythrocyte distribution width (RBC) [Entitic vol] 14.5 % 11.6 - 14.8 % [facility] Hematocrit (Bld) [Volume fraction] 34.6 % Low 36 - 46 % [facility] Hemoglobin (Bld) [Mass/Vol] 11.6 g/dL Low 12 - 16 g/dL [facility] Interpretation and review of laboratory results Abnormal [facility] MCH (RBC) [Entitic mass] 29.7 pg 26 - 34 pg [facility] MCHC (RBC) [Mass/Vol] 33.5 g/dL 31 - 3 7 g/dL [facility] MCV (RBC) [Entitic vol] 88.5 fL 80 - 100 fL [facility] Nucleated RBC (Bld) [#/Vol] 0.00 10*3/uL [facility] Nucleated RBC/100 WBC (Bld) [Ratio] 0.0 % [facility] Platelet mean volume (Bld) [Entitic vol] 10.8 fL 9 - 15.5 fL [facility] Platelets (Bld) [#/Vol] 172 10*3/uL [facility] RBC (Bld) [#/Vol] 3.91 10*6/uL Low [facility] WBC (Bld) [#/Vol] 7.28 10*3/uL [facility] e[facility] CT ABDOMEN PELVIS W IV CONTR AST Additional Contrast? Noneon 06-14-2019 Ward, Mhpn Incoming Radiant Results From [employer] - 06/14/2019 12:27 AM EDT EXAMINATION: CT [...] liver function panel and consider ultrasound imaging. [place] Pericholecystic fluid versus gallbladder wall thickening and additional periportal edema. There are no visualized stones in the gallbladder gallbladder and/or hepatic pathology are suspected. Correlate with liver function panel and consider ultrasound imaging. [place] EXAMINATION: CT ABDOMEN PELVIS W IV [...] structures demonstrate no acute or concerning abnormality. [place] CT COMPARISON IMPORTon 06-13 This order has been auto-finalized and does not contain a result. [facility] Comprehensive Metabolic Pane cayden 06-14-2019 Albumin [Mass/Vol] 3.0 g/dL Low 3.2 - 5.2 g/dL [facility] ALP [Catalytic activity/Vol] 183 U/L High 40 - 140 U/L [facility] ALT [Catalytic activity/Vol] 808 U/L High 0 - 40 U/L [facility] Anion gap [Moles/Vol] 16 mmol/L 10 - 2 0 mmol/L [facility] AST [Catalytic activity/Vol] 592 U/L High 0 - 45 U/L [facility] Bilirubin [Mass/Vol] 4.9 mg/dL High 0 - 1.3 mg/dL [facility] Calcium [Mass/Vol] 8.4 mg/dL 8.4 - 10. 2 mg/dL [facility] Chloride [Moles/Vol] 104 mmol/L 98 - 10 8 mmol/L [facility] Creatinine [Mass/Vol] 0.43 mg/dL 0.40 - 1.10 [facility] GFR/1.73 sq M predicted among non-blacks MDRD (S/P/Bld) [Vol rate/Area] The eGFR should be used for monitoring renal function only and not for medication dosing. [facility] GFR/1.73 sq M.predicted CKD-EPI (S/P/Bld) [Vol rate/Area] 138 >=60 mL/min/1.73 m2 [facility] Glucose [Mass/Vol] 79 mg/dL 65 - 99 mg/dL [facility] HCO3 [Moles/Vol] 21 mmol/L 21 - 32 mmol/L [facility] Interpretation and review of laboratory results Abnormal [facility] Potassium [Moles/Vol] 3.8 mmol/L 3.5 - 5.1 mmol/L [facility] Protein [Mass/Vol] 5.7 g/dL Low 6 - 8 g/dL [facility]th Sodium [Moles/Vol] 137 mmol/L 135 - 145 mmol/L [facility] Urea nitrogen [Mass/Vol] 9 mg/dL 8 - 25 mg/dL [facility] Urea nitrogen/Creatinine [Mass ratio] 20.9 mg/mg High [facility] DRUGS OF ABUSE SCREEN, URINE on 06-14-2019 Amphetamines Ql (U) None Detected None Detected [facility] Comment on above: Urine Amphetamine Cu toff: < 1000 ng/mL = None Detected Barbiturates Screen Ql (U) None Detected None Detected [facility] Comment on above: Urine Barbiturates C utoff: < 200 ng/mL = None Detected Benzodiazepines Ql (U) None Detected None Detected [facility] Comment on above: Urine Benzodiazepine Cutoff: < 300 ng/mL = None Detected Cannabinoids Screen Ql (U) None Detected None Detected [facility] Comment on above: Urine Cannabinoids C utoff: < 50 ng/mL = None Detected Cocaine Ql (U) Positive Abnormal None Detected [facility] Comment on above: Urine Cocaine Cutoff : < 300 ng/mL = None Detected Interpretation and review of laboratory results Abnormal [facility] Methadone Screen Ql (U) None Detected Non e Detected [facility] Comment on above: Urine Methadone Cuto ff: < 300 ng/mL = None Detected Opiates Screen Ql (U) None Detected None Detected [facility] Comment on above: Urine Opiates Cutoff : < 300 ng/mL = None Detected Oxycodone Ql (U) None Detected None Detected [facility] Comment on above: Urine Oxycodone Cuto ff: < 100 ng/mL = None Detected Screen results should be used for treatment purposes only. Specimen will be kept for 2 weeks, if the sample is adequate. Confirmation testing can be initiated by calling the lab within 2 weeks. [facility] HEPATITIS PANEL, ACUTEon HAV IgM Ql (S) Negative Negative [facility] HBV core IgM Ql (S) Negative Negative [facility] HBV surface Ag Ql (S) Negative Negative [facility] HCV Ab Ql (S) Positive Abnormal Negative [facility] Comment on above: A positive antibody test requires additional follow-up testing, Hepatitis C Virus Quantitation, to determine if a person is currently infected with Hepatitis C. Interpretation and review of laboratory results Abnormal [facility] Test performed using Constantin DEVIKA immunoassay system [facility] Lactic Acid, Plasmaon 2019 Interpretation and review of laboratory results Normal [facility] Lactate [Moles/Vol] 0.8 mmol/L 0.6 - 2 mmol/L [facility] MORPHOLOGYon 06-14-2019 Platelets LM Ql (Bld) Normal Normal [facility] morphology finding Nom (Bld) Normal [facility] MRCPon 06-14-2019 EXAMINATION: MRCP 03/15/2024 HISTORY: [...] Axial T1-weighted images were obtained in- and [id number]. Axial diffusion-weighted imaging was also performed. FINDINGS: The liver overall appears enlarged with the right hepatic lobe measuring 22.6 cm yulqwlhd-ya-nyrkemy r. The spleen measures 14.6 cm rpmabtjj-hr-kviviuu r and is also mildly enlarged. There [...] the right kidney. Bowel pattern is nonobstructive. [facility] 1. Re-demonstration of diffuse periportal edema as well as significant circumferential gallbladder wall edema similar to that seen on prior CT study. 2. Mild hepatosplenomegaly. 3. No obvious gallstones. Negative for biliary or pancreatic ductal dilatation. Negative for choledocholithiasis . 4. Trace volume of abdominal ascites. [employer] Workstation ID: [id number] [facility] Interface, Rad In Fuji Speechq - [...] Axial T1-weighted images were obtained in- and [id number]. Axial diffusion-weighted imaging was also performed. FINDINGS: The liver overall appears enlarged with the right hepatic lobe measuring 22.6 cm irpefmgx-ff-ohpwuyd r. The spleen measures 14.6 cm qtramdki-aq-gijlrsn r and is also mildly enlarged. There [...] . 4. Trace volume of abdominal ascites. [employer] Workstation ID: [id number] [facility] Manual Differentialon 2019 Basophils (Bld) [#/Vol] 0.00 10*3/uL [facility] Basophils/100 WBC (Bld) 0.0 % [facility] Eosinophils (Bld) [#/Vol] 0.00 10*3/uL [facility] Eosinophils/100 WBC (Bld) 0.0 % [facility] Lymphocytes (Bld) [#/Vol] 3.28 10*3/uL [facility] Lymphocytes/100 WBC (Bld) 37.0 % [facility] Monocytes (Bld) [#/Vol] 0.44 10*3/uL [facility] Monocytes/100 WBC (Bld) 6.0 % [facility] Neutrophils (Bld) [#/Vol] 3.57 10*3/uL [facility] Neutrophils/100 WBC (Bld) 49.0 % [facility] Variant lymphocytes/100 WBC (Bld) 8.0 % [facility] PT/INRon 06-14-2019 INR Coag (PPP) [Relative time] 1.3 {INR} [facility] Interpretation and review of laboratory results Abnormal [facility] PT Coag (PPP) [Time] 15.5 s [facility] During the induction phase of oral anticoagulation, the INR may not reflect the anticoagulation status of the patient. Therapeutic ranges for INR's are: Most clinical situations: INR 2.0-3.0 Mechanical Prosthetic Valve: INR 2.5-3.5 Critical: INR >5.0 [facility] Protime-INRon 06-14-2019 INR Coag (PPP) [Relative time] 1.2 {INR} [place] Comment on above: * THERAPY INDICATIONS * REFERENCE RANGES Pts not on anti-coagulants 1.0 - 1.5 INR Low risk pts on anti-coagulants 2.0 - 3.0 INR High risk pts on anti-coagulants 2.5 - 3.5 INR Prevention of atrial thrombo-embolism 3.0 - 4.5 INR Interpretation and review of laboratory results Abnormal [place], [place] PT Coag (PPP) [Time] 11.7 s [place] Salicylate Levelon 0 Interpretation and review of laboratory results Abnormal [facility] Salicylates [Mass/Vol] mg/dL Low 10 - 20 mg/dL [facility] URINALYSISon 06-14-2019 Bacteria Auto Ql (U) Rare Abnormal None Se en /hpf [facility] Bilirubin Ql (U) Positive Abnormal Negative [facility] th Comment on above: False positive urine bilirubins can occur in the setting of a large amount of hemoglobin and secondary to medications including anti-inflammatory agents, rifampin, and pyridium. Clarity Refractometry automated (U) Clear Clear [facility] Color (U) Erica Abnormal Colorless, Yellow [facility] Epithelial cells.squamous Auto (Urine sed) [#/Area] 4 [facility] alth Glucose Auto test strip (U) [Mass/Vol] Negative Negative mg/dL [facility] Hemoglobin Auto test strip Ql (U) Negative Negative [facility] Interpretation and review of laboratory results Abnormal [facility] Ketones (U) [Mass/Vol] >=80 Abnormal Negat krystal mg/dL [facility] Leukocyte esterase Auto test strip Ql (U) Negative Negative [facility] Mucus Auto (Urine sed) [#/Area] Rare None Seen, Rare /lpf [facility] Nitrite Auto test strip Ql (U) Negative Negative [facility] pH (U) 6.0 [pH] [facility] Protein (U) [Mass/Vol] 30 Abnormal Negat krystal mg/dL [facility] Comment on above: False positive resul ts may occur in urines with large amounts of hemoglobin, pH greater than 8.0, contrast medium, or disinfectants including ammonium compounds. RBC Auto (Urine sed) [#/Area] 2 [facility] Specific gravity (U) [Rel density] 1.028 High [facility] Urobilinogen (U) [Mass/Vol] >=4.0 Abnormal <2.0 mg/dL [facility] WBC Auto (Urine sed) [#/Area] 2 [facility] Microscopic examination is performed on all urinalysis samples and only positive findings are reported. The test for blood on the chemical analytic portion of urinalysis may also be positive due to hemoglobinuria and myoglobinuria and if red blood cells are present they are quantified by microscopic examination. [facility] US ABDOMEN LIMITED STUDYon 0 06-14-2019 [...] liver likely small hemangioma. Workstation ID: [id number] [place] Therapist EXAMINATION: US ABDOMEN LIMITED STUDY HISTORY: RUQ [...] measures 10.7 cm in length. No hydronephrosis. [facility] 1. Contracted gallbladder limits evaluation. No cholelithiasis identified. Nonspecific edematous gallbladder wall thickening and reported positive sonographic Short's sign, cannot exclude acalculus cholecystitis. No biliary ductal dilatation. 2. 1.3 cm echogenic lesion left lobe of the liver likely small hemangioma. Workstation ID: [id number] [facility] Amylaseon 06-13-2019 Amylase [Catalytic activity/Vol] 22 U/L Low 28 - 100 U/L [place] CBC Auto Differentialon Basophils (Bld) [#/Vol] 0.00 10*3/uL [place] Basophils/100 WBC (Bld) 1 % 0 - 2 % [place] Differential Type YES [facility] [place] Eosinophils (Bld) [#/Vol] 0.00 10*3/uL [place] Eosinophils/100 WBC (Bld) 0 % 0 - 5 % [place] Erythrocyte distribution width (RBC) [Ratio] 14.9 % 12.1 - 15.2 % [place] Hematocrit (Bld) [Volume fraction] 43.3 % 36 - 46 % [place] Hemoglobin (Bld) [Mass/Vol] 14.3 g/dL 12 - 16 g/dL [place] Lymphocytes (Bld) [#/Vol] 2.50 10*3/uL [place] Lymphocytes/100 WBC (Bld) 30 % 15 - 40 % [place] MCH (RBC) [Entitic mass] 28.8 pg 26 - 34 pg [place] MCHC (RBC) [Mass/Vol] 33.1 g/dL 31 - 3 7 g/dL [place] MCV (RBC) [Entitic vol] 87.2 fL 80 - 100 fL [place] Monocytes (Bld) [#/Vol] 0.70 10*3/uL [place] Monocytes/100 WBC (Bld) 8 % 4 - 8 % [place] Platelet mean volume (Bld) [Entitic vol] NOT REPORTED 6 - 12 fL [place], [place] Platelets (Bld) [#/Vol] 203 10*3/uL [place] Platelets (Bld) [#/Vol] NOT REPORTED [place] RBC (Bld) [#/Vol] 4.97 10*6/uL 4 - 5.2 m/uL [place] RBC morphology finding Nom (Bld) NOT REPORTED [place] Segmented neutrophils/100 WBC (Bld) 61 % 47 - 75 % [place] Segs Absolute 5.20 [place] WBC (Bld) [#/Vol] 8.4 10*3/uL [place] WBC (Bld) [#/Vol] NOT REPORTED per 100 WBC [place] WBC Morphology NOT REPORTED [place] Comprehensive Metabolic Pane l w/ Reflex to MGon 06-13-2019 Albumin [Mass/Vol] 4.1 g/dL 3.5 - 5.2 g/dL [place] Albumin/Globulin [Mass ratio] NOT REPORTED [place] ALP [Catalytic activity/Vol] 255 U/L High 35 - 104 U/L [place] ALT [Catalytic activity/Vol] 1116 U/L High 5 - 33 U/L [place] Anion gap [Moles/Vol] 17 mmol/L 9 - 17 mmol/L [place] AST [Catalytic activity/Vol] 665 U/L High <32 [place] Bilirubin Ql (U) 6.52 mg/dL High 0.3 - 1.2 mg/dL [place] Bun/Cre Ratio 17 [place] Calcium [Mass/Vol] 10.1 mg/dL 8.6 - 10. 4 mg/dL [place] Chloride [Moles/Vol] 95 mmol/L Low 98 - 10 7 mmol/L [place] CO2 [Moles/Vol] 24 mmol/L 20 - 31 mmol/L [place] Creatinine [Mass/Vol] 0.82 mg/dL 0.5 - 0.9 mg/dL [place] GFR >60 >60 mL/min [place] GFR Non- >60 >60 mL/min [place] GFR/1.73 sq M predicted among non-blacks MDRD (S/P/Bld) [Vol rate/Area] [place] Comment on above: Average GFR for 20-2 9 years old: 116 mL/min/1.73sq m Chronic Kidney Disease: <60 mL/min/1.73sq m Kidney failure: <15 mL/min/1.73sq m eGFR calculated using average adult body mass. Additional eGFR calculator available at: http://www.Workspace/multiple_crcl_2012.htm GFR/1.73 sq M predicted among non-blacks MDRD (S/P/Bld) [Vol rate/Area] NOT REPORTED [place] Glucose [Mass/Vol] 134 mg/dL High 70 - 99 mg/dL [place] Interpretation and review of laboratory results Abnormal [place] Potassium [Moles/Vol] 3.7 mmol/L 3.7 - 5.3 mmol/L [place] Protein [Mass/Vol] 8.1 g/dL 6.4 - 8.3 g/dL [place] Sodium [Moles/Vol] 136 mmol/L 135 - 144 mmol/L [place] Urea nitrogen [Mass/Vol] 14 mg/dL 6 - 20 mg/dL [place] Drug screen multi urineon Amphetamine Screen, Ur Negative NEGATIVE [place] Comment on above: (Positive cutoff 500 ng/mL) Barbiturate Screen, Ur Negative NEGATIVE [place] Comment on above: (Positive cutoff 200 ng/mL) Benzodiazepine Screen, Urine Negative NEGATIVE [place] Comment on above: (Positive cutoff 150 ng/mL) Buprenorphine Urine NOT REPORTED NEGATIVE [place] Cannabinoid Scrn, Ur Negative NEGATIVE [place] Comment on above: (Positive cutoff 50 ng/mL) Cocaine Metabolite, Urine Positive Abnormal NEGATIVE [place] Comment on above: (Positive cutoff 150 ng/mL) Interpretation and review of laboratory results Abnormal [place] MDMA, Urine NOT REPORTED NEGATIVE [place] Methadone Screen, Urine Negative NEGATIVE [place] Comment on above: (Positive cutoff 200 ng/mL) Methamphetamine, Urine Negative NEGATIVE [place] Comment on above: (Positive cutoff 500 ng/mL) Opiates, Urine Positive Abnormal NEGATIVE [place] Comment on above: (Positive cutoff 100 ng/mL) Oxycodone Screen, Ur Negative NEGATIVE [place] Comment on above: (Positive cutoff 100 ng/mL) Phencyclidine, Urine Negative NEGATIVE [place] Comment on above: (Positive cutoff 25 ng/mL) Propoxyphene, Urine Negative NEGATIVE [place] Comment on above: (Positive cutoff 300 ng/mL) Test Information NOT REPORTED [place] Tricyclic Antidepressants, Urine Negative NEGATIVE [place] Comment on above: (Positive cutoff 300 ng/mL) Drug screen results are to be used for medical purposes only. All positive results are unconfirmed. Testing for employment or legal uses should be sent to a reference laboratory for confirmation. Lactic Acidon 06-13-2019 Lactate [Moles/Vol] 1.2 mmol/L 0.5 - 2. 2 mmol/L [place] Lipaseon 06-13-2019 Lipase [Catalytic activity/Vol] 8 U/L Low 13 - 60 U/L [place] Microscopic Urinalysison Amorphous, UA NOT REPORTED None [place] Bacteria, UA 2+ Abnormal None [place] Casts UA 5 TO 10 HYALINE /LPF [place] Casts UA 2 TO 5 WAXY /LPF [place] Crystals, UA NOT REPORTED None /HPF [place] Epithelial Cells UA LOADED /HPF [place] Interpretation and review of laboratory results Abnormal [place] Mucus, UA 4+ Abnormal [place] Other Observations UA NOT REPORTED NOT REQ. [place] RBC (U) [#/Vol] 5 TO 10 [place] Renal Epithelial, UA NOT REPORTED 0 /HPF [place] Trichomonas, UA NOT REPORTED None [place] WBC, UA 10 TO 20 0 /HPF [place] Yeast, UA NOT REPORTED None [place] - [place] Otheron 06-13-2019 Interpretation and review of laboratory results Abnormal [place] Immature granulocytes (Bld) [#/Vol] NOT REPORTED 0 % [place] , Urineon 0 Beta HCG ( test) Ql (U) Negative NEGATIVE [place] Urinalysis, reflex to micros copicon 06-13-2019 Bilirubin Urine 3+ [facility] [place] Color, UA BROWN Abnormal YELLOW [place] Glucose, Ur Negative NEGATIVE [place] Interpretation and review of laboratory results Abnormal [place] Ketones Ql (U) MODERATE Abnormal NEGATIVE [place] Leukocyte esterase Test strip Ql (U) 1+ Abnormal NEGATIVE [place] Nitrite, Urine Positive Abnormal NEGATIVE [place] pH, UA 5.0 [place] Protein (U) [Mass/Vol] 1+ Abnormal NEGATIVE [place] Specific [place], UA 1.020 [place] Turbidity UA CLEAR CLEAR [place] Urinalysis Comments [place] Urine Hgb TRACE Abnormal NEGATIVE [place] Urobilinogen, Urine 12 mg/dL Abnormal Normal [place] Vital Signs Date Time Vital Sign Value Performing Clinician Facility 10-05-2023 21:00-0400 Body temperature 99.61 [degF] Violet Juarez MD Work Phone: [facility] 10-05-2023 21:00-0400 Diastolic blood pressure 68 mm[Hg] Violet Juarez MD Work Phone: [facility] 10-05-2023 21:00-0400 Heart rate 93 /min Violet Juarez MD Work Phone: [facility] 10-05-2023 21:00-0400 Respiratory rate 16 /min Violet Juarez MD Work Phone: [facility] 10-05-2023 21:00-0400 SaO2% (BldA) [Mass fraction] 97 % Violet Juarez MD Work Phone: [facility] 10-05-2023 21:00-0400 Systolic blood pressure 114 mm[Hg] Violet Juarez MD Work Phone: [facility] 05-13-2023 11:27-0500 Body temperature 98.6 [degF] [facility] 05-13-2023 11:27-0500 Diastolic blood pressure 78 mm[Hg] [facility] 05-13-2023 11:27-0500 Heart rate 83 /min [facility] 05-13-2023 11:27-0500 Respiratory rate 18 /min [facility] 05-13-2023 11:27-0500 SaO2% (BldA) [Mass fraction] 97 % [facility] 05-13-2023 11:27-0500 Systolic blood pressure 113 mm[Hg] [facility] 05-11-2023 21:49-0500 Body temperature 98.06 [degF] [facility] 05-11-2023 21:49-0500 Diastolic blood pressure 84 mm[Hg] [facility] 05-11-2023 21:49-0500 Heart rate 105 /min [facility] 05-11-2023 21:49-0500 Respiratory rate 17 /min [facility] 05-11-2023 21:49-0500 SaO2% (BldA) [Mass fraction] 97 % [facility] 05-11-2023 21:49-0500 Systolic blood pressure 130 mm[Hg] [facility] 05-10-2023 11:41-0500 Body height 160 cm Chet Berumen DO Work Phone: [facility] [employer] 05-10-2023 11:41-0500 Body mass index (BMI) [Ratio] 44.29 kg/m2 Chet Berumen DO Work Phone: [facility] [employer] 05-10-2023 11:41-0500 Body temperature 97.9 [degF] Chet Berumen DO Work Phone: [facility] [employer] 05-10-2023 11:41-0500 Body weight 113.4 kg Chet Berumen DO Work Phone: [facility] [employer] 05-10-2023 11:41-0500 Diastolic blood pressure 76 mm[Hg] Chet Berumen DO Work Phone: [facility] [employer] 05-10-2023 11:41-0500 Heart rate 94 /min Chet Lachelle STEWART Work Phone: [facility] [employer] 05-10-2023 11:41-0500 Respiratory rate 18 /min Chet Berumen DO Work Phone: [facility] [employer] 05-10-2023 11:41-0500 SaO2% (BldA) [Mass fraction] 96 % Chet Berumen DO Work Phone: [facility] [employer] 05-10-2023 11:41-0500 Systolic blood pressure 146 mm[Hg] Chet Lachelle STEWART Work Phone: [facility] [employer] 09-04-2022 11:27-0400 Body height 160 cm Erin Lacy MD Work Phone: [employer] 09-04-2022 11:27-0400 Body mass index (BMI) [Ratio] 44.99 kg/m2 Erin Lacy MD Work Phone: [employer] 09-04-2022 11:27-0400 Body temperature 98.2 [degF] Erin Lacy MD Work Phone: [employer] 09-04-2022 11:27-0400 Body weight 115.21 kg Erin Lacy MD Work Phone: [employer] 09-04-2022 11:27-0400 Diastolic blood pressure 71 mm[Hg] Erin Lacy MD Work Phone: [employer] 09-04-2022 11:27-0400 Heart rate 88 /min Erin Lacy MD Work Phone: [employer] 09-04-2022 11:27-0400 Respiratory rate 18 /min Erin Lacy MD Work Phone: [employer] 09-04-2022 11:27-0400 SaO2% (BldA) [Mass fraction] 97 % Erin Lacy MD Work Phone: [employer] 09-04-2022 11:27-0400 Systolic blood pressure 124 mm[Hg] Erin Lacy MD Work Phone: [facility] [employer] [facility] [employer] 06-29-2022 09:49-0400 Diastolic blood pressure 57 mm[Hg] [facility] 06-29-2022 09:49-0400 Heart rate 73 /min [facility] 06-29-2022 09:49-0400 Mean blood pressure 76 mm[Hg] [facility] 06-29-2022 09:49-0400 Respiratory rate 16 /min [facility] 06-29-2022 09:49-0400 Systolic blood pressure 113 mm[Hg] [facility] 05-19-2022 19:28-0400 Body height 160 cm Erin Lacy MD Work Phone: [employer] 05-19-2022 19:28-0400 Body mass index (BMI) [Ratio] 45.17 kg/m2 Erin Lacy MD Work Phone: [employer] 05-19-2022 19:28-0400 Body weight 115.67 kg Erin Lacy MD Work Phone: [employer] 05-19-2022 19:25-0400 Body temperature 98.29 [degF] Erin Lacy MD Work Phone: [employer] 05-19-2022 19:25-0400 Diastolic blood pressure 68 mm[Hg] Erin Lacy MD Work Phone: [employer] 05-19-2022 19:25-0400 Heart rate 78 /min Erin Lacy MD Work Phone: [employer] 05-19-2022 19:25-0400 Respiratory rate 16 /min Erin Lacy MD Work Phone: [employer] 05-19-2022 19:25-0400 SaO2% (BldA) [Mass fraction] 98 % Erin Lacy MD Work Phone: [employer] 05-19-2022 19:25-0400 Systolic blood pressure 110 mm[Hg] Erin Lacy MD Work Phone: [employer] 05-11-2022 19:17-0500 Body height 160 cm Anuj Quinn MD Work Phone: [employer] 05-11-2022 19:17-0500 Body mass index (BMI) [Ratio] 45.06 kg/m2 Aunj Quinn MD Work Phone: [employer] 05-11-2022 19:17-0500 Body temperature 98.01 [degF] Anuj Quinn MD Work Phone: [employer] 05-11-2022 19:17-0500 Body weight 115.39 kg Anuj Quinn MD Work Phone: [employer] 05-11-2022 19:17-0500 Diastolic blood pressure 91 mm[Hg] Anuj Quinn MD Work Phone: [employer] 05-11-2022 19:17-0500 Heart rate 78 /min Anuj Quinn MD Work Phone: [employer] 05-11-2022 19:17-0500 Respiratory rate 18 /min Anuj Quinn MD Work Phone: [employer] 05-11-2022 19:17-0500 SaO2% (BldA) [Mass fraction] 96 % Anuj Quinn MD Work Phone: [employer] 05-11-2022 19:17-0500 Systolic blood pressure 121 mm[Hg] Anuj Quinn MD Work Phone: [employer] 10-12-2021 18:31-0400 Heart rate 93 /min Rishbah Mancini MD Work Phone: [employer] 10-12-2021 18:31-0400 Respiratory rate 16 /min Rishabh Mancini MD Work Phone: [employer] 10-12-2021 18:31-0400 SaO2% (BldA) [Mass fraction] 97 % Rishabh Mancini MD Work Phone: [employer] 10-12-2021 18:12-0400 Body height 160 cm Rishabh Mancnii MD Work Phone: [employer] 10-12-2021 18:12-0400 Body mass index (BMI) [Ratio] 47.12 kg/m2 Rishabh Mancini MD Work Phone: [employer] 10-12-2021 18:12-0400 Body temperature 99.19 [degF] Rishabh Mancini MD Work Phone: [employer] 10-12-2021 18:12-0400 Body weight 120.66 kg Rishabh Mancini MD Work Phone: [employer] 10-12-2021 18:12-0400 Diastolic blood pressure 77 mm[Hg] Rishabh Mancini MD Work Phone: [facility] [employer] 10-12-2021 18:12-0400 Systolic blood pressure 126 mm[Hg] Rishabh Mancini MD Work Phone: [facility] [employer] 07-22-2021 10:38-0400 Body height 160 cm [facility] 07-22-2021 10:38-0400 Body mass index (BMI) [Ratio] 47.63 kg/m2 Clark [facility]oser [facility] 07-22-2021 10:38-0400 Body temperature 97.3 [degF] Clark [facility]oser [facility] 07-22-2021 10:38-0400 Body weight 121.97 kg Clark [facility]oser MD [facility] 07-22-2021 10:38-0400 Diastolic blood pressure 88 mm[Hg] Clark [facility]oser [facility] 07-22-2021 10:38-0400 Heart rate 104 /min Clark [facility]oser [facility] 07-22-2021 10:38-0400 Respiratory rate 18 /min Clark [facility]oser [facility] 07-22-2021 10:38-0400 SaO2% (BldA) [Mass fraction] 95 % Clark Moser MD [facility] 07-22-2021 10:38-0400 Systolic blood pressure 126 mm[Hg] Clark [facility]oser MD [facility] 05-15-2021 09:11-0500 Body height [address] [facility] 05-14-2021 10:41-0500 Body height 160 cm Farhat Vang MD Work Phone: [facility] 05-14-2021 10:41-0500 Body mass index (BMI) [Ratio] 44.96 kg/m2 Farhat Vang MD Work Phone: [facility] 05-14-2021 10:41-0500 Body temperature 97.81 [degF] Farhat Vang MD Work Phone: [facility] 05-14-2021 10:41-0500 Body weight 115.12 kg Farhat Vang MD Work Phone: [facility] 05-14-2021 10:41-0500 Diastolic blood pressure 78 mm[Hg] Farhat Vang MD Work Phone: [facility] 05-14-2021 10:41-0500 Heart rate 98 /min aFrhat Vang MD Work Phone: [facility] 05-14-2021 10:41-0500 Respiratory rate 18 /min Farhat Vang MD Work Phone: [facility] 05-14-2021 10:41-0500 SaO2% (BldA) [Mass fraction] 97 % Farhat Vang MD Work Phone: [facility] 05-14-2021 10:41-0500 Systolic blood pressure 124 mm[Hg] Farhat Vang MD Work Phone: [facility] 04-16-2021 10:15-0500 Body height 160 cm Farhat Vang MD Work Phone: [facility] 04-16-2021 10:15-0500 Body mass index (BMI) [Ratio] 44.44 kg/m2 Farhat Vang MD Work Phone: [facility] 04-16-2021 10:15-0500 Body temperature 98.01 [degF] Farhat Vang MD Work Phone: [facility] 04-16-2021 10:15-0500 Body weight 113.81 kg Farhat Vang MD Work Phone: [facility] 04-16-2021 10:15-0500 Diastolic blood pressure 78 mm[Hg] Farhat Vang MD Work Phone: [facility] 04-16-2021 10:15-0500 Heart rate 100 /min Farhat Vang MD Work Phone: [facility] 04-16-2021 10:15-0500 Respiratory rate 18 /min Farhat Vang MD Work Phone: [facility] 04-16-2021 10:15-0500 SaO2% (BldA) [Mass fraction] 96 % Farhat Vang MD Work Phone: [facility] 04-16-2021 10:15-0500 Systolic blood pressure 122 mm[Hg] Farhat Vang MD Work Phone: [facility] 03-23-2021 12:40-0500 Body height 160 cm Anuj Quinn MD Work Phone: [facility] [email or web address] 03-23-2021 12:40-0500 Body mass index (BMI) [Ratio] 44.46 kg/m2 Anuj Quinn MD Work Phone: [email or web address] 03-23-2021 12:40-0500 Body temperature 99.7 [degF] Anuj Quinn MD Work Phone: [employer] 03-23-2021 12:40-0500 Body weight 113.85 kg Anuj Quinn MD Work Phone: [email or web address] 03-23-2021 12:40-0500 Diastolic blood pressure 74 mm[Hg] Anuj Quinn MD Work Phone: [employer] 03-23-2021 12:40-0500 Heart rate 107 /min Anuj Quinn MD Work Phone: [email or web address] 03-23-2021 12:40-0500 Respiratory rate 16 /min Anuj Quinn MD Work Phone: [employer] 03-23-2021 12:40-0500 SaO2% (BldA) [Mass fraction] 96 % Anuj Quinn MD Work Phone: [email or web address] 03-23-2021 12:40-0500 Systolic blood pressure 131 mm[Hg] Anuj Quinn MD Work Phone: [facility] 01-15-2021 10:43-0500 Body height 160 cm Holland Ann MD Work Phone: [facility] 01-15-2021 10:43-0500 Body mass index (BMI) [Ratio] 42.55 kg/m2 Holland Ann MD Work Phone: [facility] 01-15-2021 10:43-0500 Body temperature 97.39 [degF] Holland Ann MD Work Phone: [facility] 01-15-2021 10:43-0500 Body weight 108.95 kg Holland Ann MD Work Phone: [facility] 01-15-2021 10:43-0500 Diastolic blood pressure 66 mm[Hg] Holland Ann MD Work Phone: [facility] 01-15-2021 10:43-0500 Heart rate 101 /min Holland Ann MD Work Phone: [facility] 01-15-2021 10:43-0500 SaO2% (BldA) [Mass fraction] 96 % Holland Ann MD Work Phone: [facility] 01-15-2021 10:43-0500 Systolic blood pressure 112 mm[Hg] Holland Ann MD Work Phone: [facility] 12-27-2020 18:15-0400 Body temperature 98.49 [degF] Wayne Springer MD Work Phone: [employer] Work Phone: 12-27-2020 18:15-0400 Diastolic blood pressure 77 mm[Hg] Wayne Springer MD Work Phone: [employer] Work Phone: Comment on above: Simultaneous filing. User may not have s een previous data. 12-27-2020 18:15-0400 Heart rate 98 /min Wayne Springer MD Work Phone: [employer] Work Phone: 12-27-2020 18:15-0400 Respiratory rate 20 /min Wayne Springer MD Work Phone: [employer] Work Phone: 12-27-2020 18:15-0400 SaO2% (BldA) [Mass fraction] 95 % Wayne Springer MD Work Phone: [employer] Work Phone: Comment on above: Simultaneous filing. User may not have s een previous data. 12-27-2020 18:15-0400 Systolic blood pressure 107 mm[Hg] Wayne Springer MD Work Phone: [employer] Work Phone: Comment on above: Simultaneous filing. User may not have s een previous data. 11-20-2020 21:07-0400 Body height 160 cm Anuj Quinn MD Work Phone: [employer] Work Phone: 11-20-2020 21:07-0400 Body mass index (BMI) [Ratio] 38.62 kg/m2 Anuj Quinn MD Work Phone: [employer] Work Phone: 11-20-2020 21:07-0400 Body temperature 98.6 [degF] Anuj Quinn MD Work Phone: [employer] Work Phone: 11-20-2020 21:07-0400 Body weight 98.88 kg Anuj Quinn MD Work Phone: [employer] Work Phone: 11-20-2020 21:07-0400 Diastolic blood pressure 65 mm[Hg] Anuj Quinn MD Work Phone: [employer] Work Phone: 11-20-2020 21:07-0400 Heart rate 84 /min Anuj Quinn MD Work Phone: [employer] Work Phone: 11-20-2020 21:07-0400 Respiratory rate 16 /min Anuj Quinn MD Work Phone: [employer] Work Phone: 11-20-2020 21:07-0400 SaO2% (BldA) [Mass fraction] 97 % Anuj Quinn MD Work Phone: [employer] Work Phone: 11-20-2020 21:07-0400 Systolic blood pressure 113 mm[Hg] Anuj Quinn MD Work Phone: [employer] Work Phone: 11-07-2020 16:28-0400 Body height 160 cm Nicholas Roger MD Work Phone: [employer] Work Phone: 11-07-2020 16:28-0400 Body mass index (BMI) [Ratio] 38.26 kg/m2 Nicholas Roger MD Work Phone: [employer] Work Phone: 11-07-2020 16:28-0400 Body temperature 98.8 [degF] Nicholas Roger MD Work Phone: [employer] Work Phone: 11-07-2020 16:28-0400 Body weight 97.98 kg Nicholas Roger MD Work Phone: [employer] Work Phone: 11-07-2020 16:28-0400 Diastolic blood pressure 71 mm[Hg] Nicholas Roger MD Work Phone: [employer] Work Phone: 11-07-2020 16:28-0400 Heart rate 98 /min Nicholas Roger MD Work Phone: [employer] Work Phone: 11-07-2020 16:28-0400 Respiratory rate 18 /min Nicholas Roger MD Work Phone: [employer] Work Phone: 11-07-2020 16:28-0400 SaO2% (BldA) [Mass fraction] 94 % Nicholas Roger MD Work Phone: [employer] Work Phone: 11-07-2020 16:28-0400 Systolic blood pressure 120 mm[Hg] Nicholas Roger MD Work Phone: [employer] Work Phone: 07-09-2020 10:52-0400 Body height 160 cm Zelda Bautista CNP Work Phone: [facility] 07-09-2020 10:52-0400 Body mass index (BMI) [Ratio] 41.27 kg/m2 Zelda Bautista CNP Work Phone: [facility] 07-09-2020 10:52-0400 Body weight 105.69 kg Zelda Bautista CNP Work Phone: [facility] 07-09-2020 10:52-0400 Diastolic blood pressure 70 mm[Hg] Zelda Bautista CNP Work Phone: [facility] 07-09-2020 10:52-0400 Heart rate 97 /min Zelda Bautista CNP Work Phone: [facility] 07-09-2020 10:52-0400 Systolic blood pressure 101 mm[Hg] Zelda Bautista CNP Work Phone: [facility] 06-24-2020 09:48-0400 Body mass index (BMI) [Ratio] 40.92 kg/m2 Anuj Quinn MD Work Phone: [employer] Work Phone: 06-24-2020 09:48-0400 Body temperature 97.9 [degF] Anuj Quinn MD Work Phone: [employer] Work Phone: 06-24-2020 09:48-0400 Body weight 104.78 kg Anuj Quinn MD Work Phone: [employer] Work Phone: 06-24-2020 09:48-0400 Diastolic blood pressure 64 mm[Hg] Anuj Quinn MD Work Phone: [employer] Work Phone: 06-24-2020 09:48-0400 Heart rate 120 /min Anuj Quinn MD Work Phone: [employer] Work Phone: 06-24-2020 09:48-0400 Respiratory rate 18 /min Anuj Quinn MD Work Phone: [employer] Work Phone: 06-24-2020 09:48-0400 SaO2% (BldA) [Mass fraction] 100 % Anuj Quinn MD Work Phone: [employer] Work Phone: 06-24-2020 09:48-0400 Systolic blood pressure 115 mm[Hg] Anuj Quinn MD Work Phone: [employer] Work Phone: 06-09-2020 10:44-0400 Body height 160 cm Lelo Gallegos MD Work Phone: [facility] 06-09-2020 10:44-0400 Body mass index (BMI) [Ratio] 41.27 kg/m2 Lelo Gallegos MD Work Phone: [facility] 06-09-2020 10:44-0400 Body weight 105.69 kg Lelo Gallegos MD Work Phone: [facility] 06-09-2020 10:44-0400 Diastolic blood pressure 75 mm[Hg] Lelo Gallegos MD Work Phone: [facility] 06-09-2020 10:44-0400 Heart rate 116 /min Lelo Gallegos MD Work Phone: [facility] 06-09-2020 10:44-0400 Systolic blood pressure 110 mm[Hg] Lelo Gallegos MD Work Phone: [facility] 03-26-2020 22:17-0500 Pulse (Heart Rate) 98 /min [facility] [employer] [facility] [place] 03-26-2020 21:43-0500 BP Diastolic 66 mm[Hg] [facility]rie [facility] [place] [facility] [place] 03-26-2020 21:43-0500 BP Systolic 99 mm[Hg] [facility] [place] [facility] [place] 03-26-2020 21:43-0500 Pulse Oximetry 95 % Brie Jorgensen [facility] , [place] 03-26-2020 20:50-0500 Respiratory Rate 16 /min Brie Moreno [facility] [place] 03-26-2020 20:13-0500 BMI (Body Mass Index) 40.14 kg/m2 [facility] [employer] [facility] [place] 03-26-2020 20:13-0500 Body Temperature 98.2 [degF] Brie Moreno [facility] 03-26-2020 20:13-0500 Body weight 102.78 kg Brie Jorgensen [facility] , [place] 02-15-2020 18:22-0500 BMI (Body Mass Index) 39.75 kg/m2 Brie Moreno [employer] [facility] [place] 02-15-2020 18:22-0500 Body Temperature 98.6 [degF] [facility] [place] 02-15-2020 18:22-0500 Body weight 101.79 kg Brie Moreno [facility] [place] 02-15-2020 18:22-0500 BP Diastolic 78 mm[Hg] Brie Josh [facility] [place] 02-15-2020 18:22-0500 BP Systolic 127 mm[Hg] [facility] [place] [facility] [place] 02-15-2020 18:22-0500 Height 160 cm Brie Moreno [employer] [facility] , [place] 02-15-2020 18:22-0500 Pulse (Heart Rate) 92 /min Brie Jorgensen [facility], [place] 02-15-2020 18:22-0500 Pulse Oximetry 99 % Brie Moreno [facility] , [place] 02-15-2020 18:22-0500 Respiratory Rate 20 /min [facility], [place] 11-20-2019 18:48-0400 BP Diastolic 75 mm[Hg] [facility], [place] 11-20-2019 18:48-0400 BP Systolic 128 mm[Hg] [facility], [place] 11-20-2019 18:48-0400 Pulse (Heart Rate) 83 /min [facility], [place] 11-20-2019 18:48-0400 Pulse Oximetry 97 % [facility], [place] 11-20-2019 18:48-0400 Respiratory Rate 18 /min [facility], [place] 11-20-2019 17:00-0400 BMI (Body Mass Index) 36.31 kg/m2 [facility], [place] 11-20-2019 17:00-0400 Body Temperature 98.4 [degF] [facility], [place] 11-20-2019 17:00-0400 Body weight 92.99 kg [facility], [place] 11-03-2019 11:37-0400 BMI (Body Mass Index) 34.47 kg/m2 [facility], [place] 11-03-2019 11:37-0400 Body Temperature 98.71 [degF] [facility], [place] 11-03-2019 11:37-0400 Body weight 88.27 kg [facility], [place] 11-03-2019 11:37-0400 BP Diastolic 66 mm[Hg] [facility], [place] 11-03-2019 11:37-0400 BP Systolic 117 mm[Hg] [facility], [place] 11-03-2019 11:37-0400 Height 160 cm [facility], [place] 11-03-2019 11:37-0400 Pulse (Heart Rate) 87 /min [facility], [place] 11-03-2019 11:37-0400 Pulse Oximetry 99 % [facility] 11-03-2019 11:37-0400 Respiratory Rate 20 /min [facility] [place] 08-13-2019 19:42-0400 BMI (Body Mass Index) 31 kg/m2 [facility] 08-13-2019 19:42-0400 Body Temperature 98.6 [degF] [...] Center 06-17-2019 12:45-0400 Respiratory Rate 18 /min [facility] 06-17-2019 07:54-0400 Body Temperature 97.81 [degF] [facility] 06-17-2019 07:54-0400 BP Diastolic 66 mm[Hg] [facility] 06-17-2019 07:54-0400 BP Systolic 99 mm[Hg] [facility] 06-17-2019 07:54-0400 Pulse (Heart Rate) 82 /min [facility] 06-17-2019 07:54-0400 Pulse Oximetry 94 % [facility] 06-14-2019 08:15-0400 BMI (Body Mass Index) 32.92 kg/m2 [facility] 06-14-2019 08:15-0400 Body weight 81.[address] [facility] 06-14-2019 08:15-0400 Height 157.[address] [facility] 06-14-2019 04:20-0400 Pulse (Heart Rate) 83 /min [facility] [place] 06-14-2019 04:05-0400 BP Diastolic 58 mm[Hg] [facility] [place] [facility] [place] 06-14-2019 04:05-0400 BP Systolic 95 mm[Hg] [facility] [place] [facility] [place] 06-14-2019 04:05-0400 Pulse Oximetry 95 % [facility]rie [facility] [place] [facility] [place] 06-14-2019 01:12-0400 Respiratory Rate 18 /min [facility] [place] 06-14-2019 00:10-0400 Body Temperature 100.51 [degF] [facility] [place] 06-13-2019 22:00-0400 BMI (Body Mass Index) 32.31 kg/m2 B[facility] [place] 06-13-2019 22:00-0400 Body weight 82.74 kg Brie [facility] [place] [facility] [place] 06-13-2019 22:00-0400 Height 160 cm Brie [facility] [place] [facility] [place] 04-28-2019 19:58-0500 Body Temperature 98.8 [degF] [facility]lyn [facility] [place] 04-28-2019 19:58-0500 BP Diastolic 70 mm[Hg] [facility] [place] [facility] [place] 04-28-2019 19:58-0500 BP Systolic 98 mm[Hg] [facility] [place] [facility] [place] 04-28-2019 19:58-0500 Pulse (Heart Rate) 119 /min [facility] [place] 04-28-2019 19:58-0500 Pulse Oximetry 100 % [facility] [place] [facility] [place] 04-28-2019 19:58-0500 Respiratory Rate 30 /min [facility] [place] 04-28-2019 19:54-0500 BMI (Body Mass Index) 30.65 kg/m2 Roslyn Jorgensen [facility] [place] 04-28-2019 19:54-0500 Body weight 78.47 kg Roslyn [facility] [place] [facility] [place] 04-28-2019 19:54-0500 Height 160 cm [facility] [place] Encounters Encounter Date Encounter Type Care Provider Facility Start: 11-09-2023 End: 11-09-2023 ambulatory MARK ELIANA Not Available Start: 10-26-2023 End: 10-26-2023 ambulatory MARK ELIANA Not Available Start: 10-05-2023 End: 10-05-2023 ambulatory VIOLET JUAREZ [facility] Start: 10-05-2023 End: 10-05-2023 Subsequent hospital visit by physician Violet Juarez MD Work Phone: [id number] Labor & Delivery Start: 10-05-2023 End: 10-05-2023 Emergency department patient visit VIOLET Ramos [facility] Start: 10-05-2023 End: 10-05-2023 Emergency department patient visit LINDA SHEPPARD [facility] Start: 09-12-2023 End: 09-12-2023 ambulatory MARK ELIANA Not Available Start: 08-16-2023 End: 08-16-2023 ambulatory MARK ELIANA Not Available Start: 07-26-2023 End: 07-26-2023 ambulatory BLAKE KAUFFMAN [facility] Start: 07-19-2023 End: 07-19-2023 ambulatory MARK ELIANA Not Available Start: 06-21-2023 End: 06-21-2023 ambulatory MARK ELIANA Not Available Start: 05-20-2023 End: 05-20-2023 ambulatory MARK ELIANA Not Available Start: 05-13-2023 End: 05-13-2023 Emergency department patient visit Jonathan Martinez Facility[place] [place] Start: 05-13-2023 End: 05-13-2023 Emergency department patient visit Jonathan Martinez [facility] Start: 05-11-2023 End: 05-12-2023 Emergency department patient visit Reginaparker Britton Donnie Facility:[facility] [place] Start: 05-11-2023 End: 05-11-2023 Emergency department patient visit Zac Tobi Donnie [facility] Start: 05-10-2023 End: 05-10-2023 Emergency department patient visit LINDA SHEPPARD [facility] Start: 05-10-2023 End: 05-10-2023 Emergency department patient visit Chet Berumen DO Work Phone: [facility] Comment on above: Toothache (Primary D x); Dental decay Start: 12-27-2022 End: 12-27-2022 ambulatory [facility] Start: 11-23-2022 End: 11-23-2022 ambulatory MARK DUM[facility] Start: 09-04-2022 End: 09-04-2022 Emergency department patient visit Erin Lacy MD Work Phone: [facility] Comment on above: Sprain of right ankl e, unspecified ligament, initial encounter (Primary Dx) Start: 06-29-2022 End: 06-30-[address] MARK DUMONT . Facility: Start: 06-29-2022 End: 06-30-2022 ambulatory Linda Sheppard Facility:[facility] [place] Start: 06-29-2022 End: 06-29-2022 Pain Management Todd Smart [facility] Start: 06-14-2022 End: 06-14-[address] MARK DUMONT . Facility: Start: 05-19-2022 End: 05-19-2022 Emergency department patient visit Erin Lacy MD Work Phone: [facility] Comment on above: Dry socket (Primary Dx) Start: 05-11-2022 End: 05-11-2022 Emergency department patient visit Anuj Quinn MD Work Phone: [facility] Comment on above: Masseter muscle spas m (Primary Dx); Other acute postprocedural pain Start: 03-30-[address] MARK DUMONT . Facili ty:[facility] Start: 03-29-2022 End: 03-29-2022 Subsequent hospital visit by physician [facility] Start: 10-12-2021 End: 10-12-2021 Emergency department patient visit Rishabh Mancini MD Work Phone: [facility] Comment on above: Acute bronchitis, un specified organism (Primary Dx) Start: 07-22-2021 End: 07-22-2021 Emergency department patient visit Clark Moser MD Work Phone: [facility] Comment on above: Acute pharyngitis, u nspecified etiology (Primary Dx) Start: 07-07-2021 ambulatory BRIE ROCA [facility] Ambulatory Start: 06-18-2021 ambulatory FARHAT DAWIT [facility] Ambulatory Start: 06-17-2021 End: 06-18-2021 ambulatory [facility] Start: 05-15-2021 End: 05-19-2021 ambulatory [facility] Start: 05-15-2021 End: 05-15-2021 Nutrition therapy Farhat Vang MD Work Phone: [facility] Comment on above: Morbid obesity with body mass index (BMI) of 40.0 or higher (HCC) Start: 05-14-2021 End: 05-18-2021 [facility] Start: 05-14-2021 End: 05-14-2021 Office outpatient visit 15 minutes Farhat Vang MD Work Phone: [facility] Comment on above: Anxiety and depressi on (Primary Dx); At risk for obstructive sleep apnea; Chronic bilateral low back pain without sciatica; Hepatitis C antibody positive in blood; Body mass index 40.0-44.9, adult (HCC); History of opioid abuse (HCC) Start: 04-16-2021 End: 04-20-2021 [facility] Start: 04-16-2021 End: 04-16-2021 Initial preventive medicine new pt age 18-39yrs Farhat Vang MD Work Phone: [facility] Comment on above: Encounter for [facility] adult medical examination with abnormal findings (Primary Dx); Anxiety and depression; History of opioid abuse (HCC); Morbid obesity with body mass index (BMI) of 40.0 or higher (HCC) Start: 04-16-2021 End: 04-16-2021 Patient encounter status Farhat Vang MD Work Phone: [facility] Start: 03-23-2021 End: 03-23-2021 Emergency department patient visit Anuj Quinn MD Work Phone: [facility] Comment on above: COVID-19 (Primary Dx ); Omphalitis in adult Start: 02-16-2021 End: 02-20-[address] [facility] Start: 02-12-2021 End: 02-16-2021 ambulatory PHYSICIAN [facility] Start: 02-10-2021 End: 02-14-[address] [facility] Start: 02-02-2021 End: 02-06-2021 ambulatory PHYSICIAN [facility] Start: 01-15-2021 Documentation procedure Jeimy goodman [facility] Start: 01-15-2021 End: 01-15-2021 ambulatory HOLLAND WHIPPLE SETH [facility] Ambulatory Start: 01-15-2021 End: 01-15-2021 Office outpatient new 30 minutes Holland Ann MD Work Phone: [facility] Comment on above: Hemorrhoids, unspeci fied hemorrhoid type Start: 12-29-2020 End: 01-02-2021 ambulatory PHYSICIAN [facility] Start: 12-27-2020 End: 12-27-2020 Emergency department patient visit Wayne Sprigner MD Work Phone: [facility] Comment on above: Viral syndrome (Prim prakash Dx) Start: 11-20-2020 End: 11-20-2020 Emergency department patient visit Anuj Quinn MD Work Phone: [facility] Comment on above: Strain of rhomboid m uscle, initial encounter; Chest wall muscle strain, initial encounter Start: 11-07-2020 End: 11-07-2020 Emergency department patient visit Nicholas Roger MD Work Phone: [facility] Comment on above: Viral URI (Primary D x) Start: 08-28-2020 End: 08-30-2020 Evaluation and management of inpatient ROSLYN HERNANDEZ GRAHAM [facility] Start: 08-25-2020 End: 08-25-2020 ambulatory PHYSICIAN [facility] Start: 07-29-2020 End: 08-02-2020 ambulatory PHYSICIAN [facility] Start: 07-22-2020 End: 07-26-2020 ambulatory LELO ADAMS GALLEGOS [facility] Start: 07-22-2020 End: 07-22-2020 Telemedicine consultation with patient Lelo Gallegos MD Work Phone: [facility] Comment on above: Diet controlled gest ational diabetes mellitus (GDM) in third trimester Start: 07-10-2020 ambulatory LELO GALLEGOS [facility] Ambulatory Start: 07-09-2020 End: 07-09-2020 ambulatory ZELDA BAUTISTA [facility] Amb[facility] Start: 07-09-2020 End: 07-09-2020 Office outpatient visit 15 minutes Zelda Bautista CNP Work Phone: [facility] Comment on above: Diet controlled gest ational diabetes mellitus (GDM) in third trimester (Primary Dx) Start: 06-24-2020 End: 06-24-2020 Emergency department patient visit Anuj Quinn MD Work Phone: [facility] Comment on above: Acute frontal sinusi tis, recurrence not specified (Primary Dx) Start: 06-10-2020 End: 06-10-2020 Nutrition therapy Lelo Gallegos Work Phone: [facility] Comment on above: Diet controlled gest ational diabetes mellitus (GDM) in second trimester Start: 06-09-2020 End: 06-09-2020 Office outpatient new 30 minutes Roslyn Stevenson MD Work Phone: [facility] Comment on above: Diet controlled gest ational diabetes mellitus (GDM) in second trimester Start: 05-27-2020 End: 05-31-2020 ambulatory PHYSICIAN [facility] Start: 05-21-2020 End: 05-25-2020 ambulatory PHYSICIAN [facility] Start: 03-26-2020 End: 03-26-2020 Emergency department patient visit Brie Moreno Work Phone: [facility] Comment on above: Atypical pneumonia ( Primary Dx) Start: 02-15-2020 End: 02-15-2020 Emergency department patient visit Brie Moreno Work Phone: [facility] Comment on above: Pain, dental (Primar y Dx); Acute gingivitis; Alveolar osteitis Start: 11-20-2019 End: 11-20-2019 Emergency department patient visit Anuj Quinn Work Phone: [facility] Comment on above: Bacterial vaginosis (Primary Dx); Trichimoniasis; Furuncle of left axilla Start: 11-03-2019 End: 11-03-2019 Emergency department patient visit Wayne Maryuri Springer Work Phone: [facility] Comment on above: Poison arabella (Primary Dx) Start: 08-20-2019 End: 08-21-2019 Patient encounter procedure HODA MADERA [facility] Start: 08-20-2019 End: 08-20-2019 Subsequent hospital visit by physician [facility] Start: 08-13-2019 End: 08-13-2019 Emergency department patient visit Christian Tuckergaldino Martinez Work Phone: [facility] Emergency Department Comment on above: Heroin abuse (HCC) ( Primary Dx) Start: 06-20-2019 End: 06-20-2019 Patient encounter procedure Alisa Analisatramaine Palencia Work Phone: [facility] Comment on above: Hepatitis C virus in fection without hepatic coma, unspecified chronicity (Primary Dx) Start: 06-18-2019 End: 06-18-2019 Documentation procedure Taryn Torres [facility] Start: 06-18-2019 Follow-up encounter Taryn bear [facility] Comment on above: Transition Of Care Start: 06-18-2019 End: 06-18-2019 Patient encounter procedure Taryn Torres [facility] Start: 06-14-2019 End: 06-17-2019 Evaluation and management of inpatient [facility] Work Phone: [facility] Comment on above: Elevated LFTs; IVDA (intravenous drug abuse) complicating (HCC) Start: 06-13-2019 End: 06-14-2019 Emergency department patient visit Brie Moreno Work Phone: [facility] Comment on above: Abdominal pain, unsp ecified abdominal location (Primary Dx); Urinary tract infection with hematuria, site unspecified; Viral hepatitis without hepatic coma, unspecified chronicity, unspecified viral hepatitis type; Polysubstance abuse (HCC); Hyperbilirubinemia Start: 04-28-2019 End: 04-28-2019 Emergency department patient visit Roslyn Keating Work Phone: [facility] Comment on above: Accidental overdose of heroin, initial encounter (HCC) (Primary Dx) Start: 12-20-2016 End: 01-02-2020 Cancer cervix - screening done Lelo Gallegos MD Work Phone: [facility] Start: 12-20-2016 End: 01-02-2020 Encounter for gynecological examination (general) (routine) without abnormal findings Jeimy Tan LPN [facility] Procedures Date Procedure Procedure Detail Performing [...] 06-13-2019 Thromboplastin time partial plasma/whole blood Brie Morneo Work Phone: Start: 05-18-2019 Adult depression scr [...] of 2) Shingles Vaccine (1 of 2) [facility] [place], [place] Start: 12-29-2025 Screening for malignant neoplasm of cervix Pap Smear [facility] Start: 10-31-2024 Screening for malignant neoplasm of cervix Pap Smear [facility] Start: 12-30-2023 [facility]ening for malignant [facility]ix [facility] Start: 11-11-2023 Respiratory Syncytial Virus (RSV) or age 60 yrs+ (1 - Risk 1-dose series) Respiratory Syncytial Virus (RSV) or age 60 yrs+ (1 - Risk 1-dose series) ALEXANDRA PANIAGUA [facility] Start: 11-10-2023 End: 11-10-2023 Patient encounter procedure 11/10/2023 10:00 AM EDT [facility] [address] [place] [address] [facility] Start: 10-27-2023 End: 10-27-2023 Patient encounter procedure 10/27/2023 10:00 AM EDT [facility] [address] [place] [address] [facility] Start: 10-13-2023 End: 10-13-2023 Patient encounter procedure 10/13/2023 10:00 AM EDT [facility] [address] [place] [address] Return in about 2 weeks (around 10/04/2023) for twins, dopplers, growth, transvag. [facility] Comment on above: Return in about 2 weeks (around ) for twins, dopplers, growth, transvag. Start: 10-07-2023 Tdap Vaccine during Tdap Vaccine during [facility] Start: 10-06-2023 Influenza vaccination Flu vaccine (#1) [facility] Start: 10-31-2022 Screening for malignant neoplasm of cervix [facility] Work Phone: Start: 10-05-2022 Influenza vaccination Flu vaccine (#1) [facility] Start: 04-16-2022 History and physical examination, annual for health maintenance Wellness Visit [facility] Start: 02-13-2022 Depression Remission Assessment (PHQ9) Depression Remission Assessment (PHQ9) [facility] Start: 12-29-2021 History and physical examination, annual for health maintenance Wellness Visit [facility] Start: 11-12-2021 End: 11-12-2021 Patient encounter procedure 11/12/2021 Office Visit Primary Care Farhat Vang MD [address] [address] [facility] Start: 11-05-2021 Influenza vaccination [facility] Start: 10-05-2021 Influenza vaccination Flu vaccine (#1) ALEXANDRA PANIAGUA [facility] Start: 06-26-2021 End: 06-26-2021 Nutrition therapy 06/26/2021 Nutrition Farhat Flannery MD [address] [facility] [address] [place] [address] [facility] Start: 05-15-2021 End: 05-15-2021 Nutrition therapy 05/15/2021 Nutrition Nutrition Angelito Harvey RD [facility] Start: 05-14-2021 End: 05-14-2021 Patient encounter procedure 05/14/2021 Office Visit Primary Care Farhat Vang MD [address] [facility] [address] [place] [address] [facility] Start: 03-17-2021 Depression screening using PHQ-9 (Patient Health Questionnaire 9) score Depression Screening (PHQ9) [facility] Start: 01-15-2021 Depression Remission Assessment (PHQ9) Depression Remission Assessment (PHQ9) [facility] Start: 01-09-2021 Hemoglobin A1c measurement A1C [facility] Start: 12-09-2020 HbA1c (Bld) [Mass fraction] A1C [facility] Start: 12-09-2020 Hemoglobin A1c measurement A1C [facility] Start: 11-05-2020 Influenza vaccination [facility] Start: 10-31-2020 History and physical examination, annual for health maintenance Wellness Visit [facility] Start: 08-28-2020 End: 08-28-2020 Admission to same day surgery center 08/28/2020 Surgery Obstetrics Roslyn Stevenson MD [address] [place] [address] [phone] [facility] Labor & Delivery Comment on above: SECTION Start: 08-28-2020 Subsequent hospital visit by physician 08/28/2020 Hospital Encounter Obstetrics Roslyn Stevenson MD [address] [place] [address] [phone] [facility] Labor & Delivery Start: 08-25-2020 End: 08-25-2020 Office Visit 08/25/2020 Office Visit Endocrinology Zelda Bautista, MARK [address] [place] [address] [phone] [facility] Start: 07-31-2020 End: 07-31-2020 Office Visit 07/31/2020 Office Visit Endocrinology Benito Krueger, MARK [address] [place] [address] [phone] [facility] Start: 07-29-2020 End: 07-29-2020 Patient encounter procedure 07/29/2020 Routine Obstetrics and Gynecology Regla Dias, CN [address] [place] [id number] [facility] - An [facility] of [facility] Start: 07-22-2020 End: 07-22-2020 Telemedicine consultation with patient 07/22/2020 Telemedicine Nutrition Lelo Gallegos MD [address] [place] [address] [phone] [facility] Nutritional Services Start: 07-17-2020 End: 07-17-2020 Patient encounter procedure 07/17/2020 Routine Obstetrics and Gynecology Yvonne Santos MD [address] [place] [phone] [facility] UNIVERSITY ADMINISTRATIVE ASSISTANT - An Affiliate of [facility] Start: 07-09-2020 End: 07-09-2020 Office Visit 07/09/2020 Office Visit Endocrinology Zelda Bautista, MARK [address] [place] [address] [phone] [facility] Endocrinology Physicians Start: 07-04-2020 End: 07-04-2020 Patient encounter procedure 07/04/2020 Routine Obstetrics and Gynecology Radha Pantoja MD [address] [place] [phone] [facility] UNIVERSITY ADMINISTRATIVE ASSISTANT - An Affiliate of [facility] Start: 06-26-2020 End: 06-26-2020 Patient encounter procedure 06/26/2020 Office Visit Endocrinology Janie Chen PA-C [facility] [address] [place] [address] [phone] [facility] Endocrinology Physicians Start: 06-24-2020 End: 06-24-[address] [facility] Nutritional Services Start: 06-19-2020 End: 06-19-2020 Routine 06/19/2020 Routine Obstetrics and Gynecology Regla Dias CNM [address] [place] [phone] [facility] UNIVERSITY ADMINISTRATIVE ASSISTANT - An Affiliate of [facility] Start: 05-17-2020 Depression screening using PHQ-9 (Patient Health Questionnaire 9) score Depression Screening (PHQ9) [facility] Start: 2020 Screening for malignant neoplasm of cervix [facility] Start: 02-26-2020 End: 02-26-2020 Initial 02/26/2020 Initial Obstetrics and Gynecology Jai Huerta MD [address] [place], [place] [id number] [facility] UNIVERSITY ADMINISTRATIVE ASSISTANT Start: 11-06-2019 Influenza vaccination [place] Start: 11-06-2019 Influenza vaccination given [facility] Start: 08-06-2019 Screening for malignant neoplasm of cervix Pap Smear [facility] Start: 06-20-2019 End: 06-20-2019 Office Visit 06/20/2019 Office Visit Transition of Care Alisa Palencia, STAMP PAD MAKER [address] [facility] [address] [place] [address] [phone] [facility] Start: 11-05-2018 Influenza vaccination Flu vaccine (#1) [place] Start: 11-05-2018 Influenza vaccination given Sequential Influenza Vaccine (#1) [facility] Start: 03-21-2015 Cervical cancer screen Cervical cancer screen [place] Start: 03-21-2015 Screening for malignant neoplasm of cervix Cervical cancer screen [place] Start: 04-05-2014 Screening for malignant neoplasm of cervix Pap smear [facility] Start: 2009 DTaP/Tdap/Td vaccine (1 - Tdap) DTaP/Tdap/Td vaccine (1 - Tdap) [place] Start: 2009 Hepatitis B vaccine (1 of 3 - Risk 3-dose series) Hepatitis B vaccine (1 of 3 - Risk 3-dose series) [facility] Work Phone: Start: 2008 Hepatitis C screening Hepatitis C screen [facility] Start: 2006 COVID-19 Vaccine (1) COVID-19 Vaccine (1) [facility] Start: 2005 HIV screen HIV screen [place], [place] Start: 2005 HIV screening HIV screen [facility] Start: 2002 COVID-19 Vaccine (1) COVID-19 Vaccine (1) [facility] Start: 2002 Depression Monitoring Depression Monitoring [facility] Start: 2001 DTaP/Tdap/Td vaccine (1 - Tdap) DTaP/Tdap/Td vaccine (1 - Tdap) [place] Start: 2001 DTaP/Tdap/Td vaccine (5 - Tdap) DTaP/Tdap/Td vaccine (5 - Tdap) [facility] Start: 2000 Albumin DL <= 20 mg/L (U) [Mass/Vol] Urine Microalbumin [facility] Start: 2000 Diabetic foot examination Foot Exam [facility] Start: 2000 Microalbumin measurement, urine, quantitative Urine Microalbumin [facility] Start: 2000 Ophthalmic examination and evaluation Ophthalmology Exam [facility] Start: 1996 Pneumococcal 0-64 years Vaccine (1 of 1 - PPSV23) Pneumococcal 0-64 years Vaccine (1 of 1 - PPSV23) [place] Start: 1996 Pneumococcal Vaccine: Ped or At-Risk (1 of 2 - PPSV23) Pneumococcal Vaccine: Ped or At-Risk (1 of 2 - PPSV23) [facility] Start: 1995 COVID-19 Vaccine (1) COVID-19 Vaccine (1) [facility] Start: 1993 History and physical examination, annual for health maintenance Wellness Visit [facility] Start: 1991 Varicella vaccine (1 of 2 - 2-dose childhood series) Varicella vaccine (1 of 2 - 2-dose childhood series) [facility] Start: 1990 COVID-19 Vaccine (#1) COVID-19 Vaccine (#1) [facility] Start: 1990 Hepatitis B vaccine (1 of 3 - 3-dose series) Hepatitis B vaccine (1 of 3 - 3-dose series) [facility] Start: 1990 Hepatitis C screening Hepatitis C screen [facility] Start: 1990 Tetanus vaccination Tetanus: Every 10yrs [facility] Anti smooth muscle antibody IgA level Anti-Smooth Muscle Antibody Lab Add-On 06/15/2019 1:50 PM EDT [facility] Antimitochondrial antibody titer Antimitochondrial Antibody Lab Add-On 06/15/2019 1:50 PM EDT [facility] End: 11-20-2019 C.trachomatis N.gonorrhoeae DNA, Urine C.trachomatis N.gonorrhoeae DNA, Urine Microbiology STAT One Time for 1 Occurrences starting 11/20/2019 until 11/20/2019 [place] Comment on above: One Time for 1 Occurrences starting 11/05 until 11/20/2019 C.trachomatis N.gonorrhoeae DNA, Urine C.trachomatis N.gonorrhoeae DNA, Urine Microbiology Stat [employer] Label print 11/20/2019 5:55 PM EDT [place] End: 03-26-2020 Covid-19 Ambulatory Covid-19 Ambulatory Lab Routine Once for 1 Occurrences starting 03/26/2020 until 03/26/2020 [place] Comment on above: Once for 1 Occurrences starting 03/26/19 21 until 03/26/2020 Covid-19 Ambulatory Covid-19 Amb ulatory Lab Routine 03/26/2020 8:44 PM EST [place] End: 06-13-2019 Culture, Blood 1 Culture, Blood 1 Microbiology STAT One Time for 1 Occurrences starting 06/13/2019 until 06/13/2019 [facility], [place] Comment on above: One Time for 1 Occurrences starting 10/2019 until 06/13/2019 Culture, Blood [facility] [place] End: 03-23-2021 Culture, Wound [facility] Work Phone: Comment on above: One Time for 1 Occurrences starting 03/07 until 03/23/2021 Cytomegalovirus DNA assay CMV DN A Detection and Quant, Blood Lab Routine 06/15/2019 1:50 PM EDT [facility] Kirsten-Hazel Virus P CR, Quantitative Kirsten-Hazel Virus PCR, Quantitative Lab Routine 06/15/2019 1:50 PM EDT [facility] End: 04-16-2022 Hemoglobin A1c/Hemoglobin.total in Blood Hemoglobin A1c Lab Routine Encounter for general adult medical examination with abnormal findings 1 Occurrences starting 04/16/2021 until 04/16/2022 [facility] Work Phone: Comment on above: 1 Occurrences starting 04/16/2021 until 04/16/2022 Hemoglobin A1c/Hemoglobin.total in Blood Hemoglobin A1c Lab Routine Encounter for general adult medical examination with abnormal findings 04/16/2021 10:58 AM [facility] End: 04-16-2022 Hepatitis C antibody measurement Hepatitis C Antibody Lab Routine Encounter for general adult medical examination with abnormal findings 1 Occurrences starting 04/16/2021 until 04/16/2022 [facility] Comment on above: 1 Occurrences starting 04/16/2021 until 04/16/2022 Hepatitis C antibody measurement Hepatitis C Antibody Lab Routine Encounter for general adult medical examination with abnormal findings 04/16/2021 10:58 AM [facility] MDI Treatment MDI Treatment Re spiratory Care Routine Every 6hr As Needed until discontinued starting 03/26/2020 [facility], [place] Comment on above: Every 6hr As Needed until discontinued s tarting 03/26/2020 Nonrebreather mask oxygen Nonreb reather mask oxygen Respiratory Care Routine As Needed until discontinued starting 10/05/2023 ALEXANDRA PANIAGUA [facility] Comment on above: As Needed until discontinued starting Nuclear Ab IF (S) [Titer] KENIA La b Add-On 06/15/2019 1:50 PM EDT [facility] End: 06-24-2020 Urinalysis, reflex to microscopic Urinalysis, reflex to microscopic Lab STAT One Time for 1 Occurrences starting 06/24/2020 until 06/24/2020 [facility] Work Phone: Comment on above: One Time for 1 Occurrences starting 06/06 until 06/24/2020 End: 05-14-2022 XR Lumbar Spine Complete AP/Lat w Obls XR Lumbar Spine Complete AP/Lat w Obls Imaging Routine Chronic bilateral low back pain without sciatica 1 Occurrences starting 05/14/2021 until 05/14/2022 [facility] Work Phone: Comment on above: 1 Occurrences starting 05/14/2021 until 05/14/2022 Payers Date Payer Category Payer Medicaid [employer] [id number] 2021-Present [phone] [address] [place] [address] [id number]. 7.3.368258.315 2021 Unknown [id number] 1.2.840.017285.1.13.239.2. 7.3.043582.315 2017 Medicaid [id number] 1.2.840.744238.1.13.385.2. 7.3.363462.315 2012 Medicaid [id number] 1.2.840.591391.1.13.239.2. 7.3.817733.315 2012 Medicaid [id number] 2008 Private Health Insurance [id number] 1990 Unknown [id number] 2.16.840.1.031115.3.579.2. 173 1990 Unknown [id number] 2.16.840.1.980479.3.579.2. 900 1990 Unknown [id number] 2.16.840.1.927240.3.579.2. 900 1990 Unknown [id number] 2.16.840.1.213554.3.579.2. 900 1990 Unknown [id number] 2.16.840.1.892212.3.579.2. 900 1990 Unknown [id number] 2.16.840.1.722920.3.579.2. 900 1990 Unknown [id number] 2.16.840.1.631312.3.579.2. 900 1990 Unknown [id number] 2.16.840.1.528720.3.579.2. 900 1990 Unknown [id number] 2.16.840.1.459557.3.579.2. 903 1990 Unknown [id number] 2.16.840.1.618763.3.579.2. 903 1990 Unknown [id number] 2.16.840.1.040716.3.579.2. 903 1990 Unknown [id number] 2.16.840.1.885727.3.579.2. 903 1990 Unknown [id number] 2.16.840.1.487337.3.579.2. 903 1990 Unknown [id number] 2.16.840.1.518197.3.579.2. 903 1990 Unknown [id number] 2.16.840.1.653227.3.579.2. 903 1990 Unknown [id number] 2.16.840.1.047418.3.579.2. 903 1990 Unknown [id number] 2.16.840.1.555990.3.579.2. 903 1990 Unknown [id number] 2.16.840.1.875766.3.579.2. 903 1990 Unknown [id number] 2.16.840.1.389064.3.579.2. 903 1990 Unknown [id number] 2.16.840.1.864315.3.579.2. 903 1990 Unknown [id number] 2.16.840.1.468429.3.579.2. 903 1990 Unknown [id number] 2.16.840.1.596359.3.579.2. 903 1990 Unknown [id number] 2.16.840.1.457190.3.579.2. 903 1990 Unknown [id number] 2.16.840.1.988331.3.579.2. 593 1990 Unknown [id number] 2.16.840.1.518218.3.579.2. 593 1990 Unknown [id number] 2.16.840.1.025402.3.579.2. 593 1990 Unknown [id number] 2.16.840.1.876790.3.579.2. 593 1990 Unknown [id number] 2.16.840.1.028433.3.579.2. 727 1990 Unknown [id number] 2.16.840.1.655484.3.579.2. 727 1990 Unknown [id number] 2.16.840.1.200779.3.579.2. 727 1990 Unknown [id number] 2.16.840.1.318182.3.579.2. 174 1990 Unknown [id number] 2.16.840.1.433021.3.579.2. 174 1990 Unknown [id number] 2.16.840.1.650730.3.579.2. 174 1990 Unknown [id number] 2.16.840.1.590361.3.579.2. 174 1990 Unknown [id number] 2.16.840.1.339879.3.579.2. 174 1990 Unknown [id number] 2.16.840.1.823192.3.579.2. 1259 1990 Unknown [id number] 2.16.840.1.650774.3.579.2. 1259 1990 Unknown [id number] 2.16.840.1.625157.3.579.2. 9 1990 Unknown [id number] 2.16.840.1.322139.3.579.2. 1259 1990 Unknown [id number] 2.16.840.1.454563.3.579.2. 1259 1990 Unknown [id number] 2.16.840.1.930723.3.579.2. 1259 1990 Unknown [id number] 2.16.840.1.662947.3.579.2. 9 1990 Unknown [id number] 2.16.840.1.114539.3.579.2. 175 1990 Unknown [id number] 2.16.840.1.304333.3.579.2. 175 1990 Unknown [id number] 2.16.840.1.138529.3.579.2. 175 1959 Unknown [id number] Social History Date Type Detail Facility Start: 04-28-2019 End: 11-03-2019 Tobacco smoking status NHIS Current every day smoker [place] End: 02-15-2020 History of tobacco use Cigarette Sm[place] Start: 04-28-2019 End: 10-05-2023 Cigarettes smoked current (pack per day) - Reported ALEXANDRA PANIAGUA [facility] Start: 04-28-2019 Alcohol intake Current drinke r of alcohol (finding) [place], [place] Start: 1990 Sex Assigned At Not on file [place] Start: 06-13-2019 End: 10-05-2023 Alcohol intake Ex-drinker (finding) [facility] [place] Exposure to SARS-CoV -2 (event) Unable to assess [facility], [place] Start: 05-18-2019 End: 04-16-2021 History SDOH Alcohol Frequency 3 [facility] Start: 05-18-2019 End: 07-16-2020 History SDOH Alcohol Std Drinks 5 [facility] Start: 05-04-2021 End: 05-19-2022 Exposure to SARS-CoV-2 (event) Not sure [facility] Start: 11-20-2019 End: 07-26-2023 Tobacco use and exposure Never used [facility] Start: 06-09-2020 End: 07-26-2023 Tobacco smoking status NHIS Former smoker [facility] End: 02-15-2020 History of tobacco use Current smoker [facility] Start: 12-09-2019 [facility] Start: 04-16-2021 History SDOH Social Connections Get Together 4 [facility] Start: 04-16-2021 History SDOH Food Worry 1 [facility] Start: 09-04-2022 End: 10-05-2023 Sex Assigned At Female [facility] Start: 09-04-2022 History SDOH Alcohol Frequency 2 [facility] How often to you hav e a drink containing alcohol? Monthly or less [facility] Average Number of Drinks Not on file [facility] How often to you hav e a drink containing alcohol? Never [facility] [employer] [facility] Procedure Code Equipment Code Equipment Origin al Text Equipment Identifier Dates Use to check BG QID Dx O24.14 . [id number] Start: 06-09-2020 Use as instructe d to check BG QID Dx O24.14 . [id number] Start: 06-09-2020 End: 06-11-2020 use to test BLOO D SUGAR FOUR TIMES DAILY [id number] Start: 06-09-2020 Goals Date Patient Goal Desired Activity /State Functional Status Date Assessment Result Facility 05-13-2023 Functional Status N/A [facility] 05-11-2023 Functional Status N/A [facility] 06-29-2022 Functional Status N/A [facility] Clinical Notes 06-09-2020 to 05-13-2023 Note [...] Follow these instructions at home: Medicines Take klfn-ios-byvjdqi and prescription medicines only as told by [...] provider. Document Revised: 04/30/2021 Document Reviewed: 04/30/2021 [employer] Patient Education 2022 V[employer]. Follow Up Care 05/13/2023 11:20:07 With:[employer] [facility] Address: [address] [place] [address] [place] [address] Business (1) When:05/16/2023 12:45:32 Comments:Dentistry follow-up [facility] 05-12-2023 Hospital Discharg e instructions Patient Education 05/11/2023 23:33:09 Dental Pain, Soji-kd-Qofx Dental Pain Dental pain is often a [...] Follow these instructions at home: Medicines Take gsoq-fyg-mogirtb and prescription medicines only as told by [...] damage to the area. Brushing your teeth Marble your teeth twice a day using a [...] only when you eat or drink. Take xclp-ftb-qyearir and prescription medicines only as told by your dentist. Watch your dental pain for any changes. Let your dentist know if symptoms get worse. This information is not intended to replace advice given to you by your health care provider. Make sure you discuss any questions you have with your health care provider. Document Revised: 11/26/2020 Document Reviewed: 11/26/2020 [employer] Patient Education 2022 Vigno. Follow Up Care 05/11/2023 21:26:40 With:Linda Sheppard DO Address: Ro[address] Julien, [facility] C, [facility] [address] [place] [address]- When:05/14/2023 [facility] 05-11-2023 Evaluation + Plan note Extrac roxann from: Title:ED Note Author:Violet Walters PA-C ate:05/11/23 1. Pain, dental (K08.89: Oth er specified disorders of teeth and supporting structures) Ordered: amoxicillin-clavulanate, = 1 tab(s), Oral, q12hr, X 7 day(s), # 14 tab(s), Refills(s) 0, Pharmacy: [facility], 160, cm, 05/11/23 21:53:00 EST, Height/Length Dosing, 110, kg, 05/11/23 21:53:00 EST, Weight Dosing chlorhexidine topical, 0.018 gm, 15 mL, Oral, BID, 480 mL, Refill(s) 0, (swish and spit; do not swallow), [facility], 160, cm, 05/11/23 21:53:00 EST, Height/Length Dosing, 110, kg, 05/11/23 21:53:00 EST, Weight Dosing 2. Infected dental caries (K02.9: Dental caries, unspecified) Ordered: amoxicillin-clavulanate, = 1 tab(s), Oral, q12hr, X 7 day(s), # 14 tab(s), Refills(s) 0, Pharmacy: [facility] #16, 160, cm, 05/11/23 21:53:00 EST, Height/Length Dosing, 110, kg, 05/11/23 21:53:00 EST, Weight Dosing chlorhexidine topical, 0.018 gm, 15 mL, Oral, BID, 480 mL, Refill(s) 0, (swish and spit; do not swallow), [facility], 160, cm, 05/11/23 21:53:00 EST, Height/Length Dosing, 110, kg, 05/11/23 21:53:00 EST, Weight Dosing 3. First trimester (Z34.91: Encounter for supervision of normal , unspecified, first trimester) Periapical abscess without sinus (K04.7: Periapical abscess without sinus) Orders: ketorolac, 30 mg = 1 mL, Injection, IntraMuscular, Once, Stop date 05/11/23 23:31:00 EST, STAT, Start date 05/11/23 23:31:00 EST, 05/11/23 23:31:00 EST [facility]03-05[facility]2024 Hospital Discharge instructions* Discharge Instructions* Chet Berumen DO - 05/10/2023 11:50 AM EST Use amoxicillin as prescribed. Use Tylenol as needed for pain. Follow-up with dentist as soon as possible. * Attachments The following attachments cannot be sent through Care Everywhere. * Tooth Decay (Comoran) * Tooth and Gum Pain (Comoran) [facility] History of Present illness Narrative* Angelito Harvey, [...] - 6-7 PM- crock pot meals- goulash; Cay[place] Islander chicken; spicy rice with chicken and beans; [...] calorie goals/day. Estimated Nutritional Needs: Calorie Needs: 9347-9370 kcals/day (MSJ x 1.3AF -500-1000 to promote gradual weight loss) Patient/Family Education: Learner: family and patient Readiness: action - ready to set action plan and implement goals Barriers to Learning: none Method: explanation and handout Response: verbalizes understanding Expected Adherence: good Education Materials Provided: Healthy Meal Planning handout ([facility]), Goal Sheet, 1,570-Ffcwhwk1-Tby Menus (NCM), 1,800-Calorie 5-Day Menus (NCM), Weight Loss Tips ([facility]) Monitoring/Evaluation: Lab results, weight, food recall, meal planning, goal achievement, physical activity, medication management. This documentation has been sent to the referring healthcare provider. Angelito Harvey RDN, LD Personal Office documented in this [id number] History of Present illness Narrative* Farhat Vang [...] C hepatitis virus. Patient was referred to segmental wall installer and the recommendation was made for a [...] improve, for Follow Up. documented in this [id number] History of Present illness Narrative* Farhat Vang [...] current medications that are prescribed by her acquisition specialist. She has 4 children at home [...] Not difficult at all documented in this [id number] History of Present illness Narrative* Holland Ann [...] SECTION; Surgeon: Roslyn Stevenson MD; Location: [facility]; Service: OBGYN SECTION, LOW TRANSVERSE 3 [...] Friends and Family: Not on file Attends [employer] Services: Not on file Active Member of [...] Report 12/29/2020 Final Value:Gynecologic Cytology Report Case: [id number] Authorizing Provider: Germania Valentino, Collected: 12/29/2020 11:09 AM STAMP PAD MAKER Ordering Location: [facility] UNIVERSITY ADMINISTRATIVE ASSISTANT - An Received: 12/30/2020 12:03 PM [facility] First Screen: Violet Craig Rescreen: Talya [...] from every slide are reviewed by a director enterprise systems. Specimen processing and Primary Screening performed at: [facility] - [address] [place] [id number] HPV Results 12/29/2020 Final Value:This result contains [...] physician. Holland Ann MD documented in this [id number] History of Present illness Narrative* Jeimy Tan LPN - 01/15/2021 11:17 AM EST This nurse acted as a telex operator for a rectal exam by Dr. Ann for Tia. Tia verbalized consent to be examined, appeared comfortable and tolerated the exam well. documented in this [id number] History of Present illness Narrative* Neris Ulloa, [...] oatmeal packet. Snack celery + PB or Romansh yogurt or green peppers. Lunch - will be light if full from snack and may have an early dinner. Dinner - pork chops, steamed vegetables. Snack - Romansh yogurt or vegetables or watermelon. Beverages - [...] the referring healthcare provider. documented in this [id number] Instructions* Patient Instructions* Zelda Bautista CNP - [...] to renew/prescribe testing supplies. documented in this [id number] History of Present illness Narrative* Zelda Bautista [...] visit with us. The patient did bring [employer] Solutions[employer] sugar meter with her for download today however there is not many readings on it. She states she started a new job at [employer] and does noise get breaks to check [...] 4. Patient to cont. To follow with log marker 5. Patient will require 2 hour 75 gram OGTT 8-12 weeks after delivery. 6. Follow-up in 2 weeks. Risks and potential complications of diabetes were reviewed with the patient. Electronically signed by Zelda MARIN 07/09/2110:03 AM documented in this [id number] History of Present illness Narrative* Lelo Gallegos [...] month during . While awaiting appointment with log marker, patient provided with details of GDM diet, [...] 1 hour post prandial. 4. Referral to log marker 5. Patient will require 2 hour 75 gram OGTT 8-12 weeks after delivery. 6. Follow-up in 2 weeks. Risks and potential complications of diabetes were reviewed with the patient. documented in this encounterIllinoisHealthEvaluation + Plan note No data available for this section [facility] Diagnosis Diet controlled gestational diabetes mellitus (GDM) in second trimester [facility] Acute frontal sinusitis, recurrence not specified- Primary documented in this encounter [employer]: evaluation note* Diagnosis Diet controlled gestational diabetes mellitus (GDM) in third trimester- Primary [facility] Diagnosis Diet controlled gestational diabetes mellitus (GDM) in third trimester [facility] Diagnosis Viral URI- Primary Acute upper respiratory infections of unspecified site documented in this encounter [employer] [facility]: evaluation note* Diagnosis Strain of rhomboid muscle, initial encounter Chest wall muscle strain, initial encounter documented in this encounter [employer] [facility]: evaluation note* Diagnosis Viral syndrome- Primary Unspecified viral infection, in conditions classified elsewhere and of unspecified site documented in this encounter [employer] [facility]: evaluation note* Diagnosis Hemorrhoids, unspecified hemorrhoid type [facility]* Diagnosis COVID-19- Primary Omphalitis in adult Unspecified local infection of skin and subcutaneous tissue documented in this encounter [employer] [facility]: evaluation note* Diagnosis Encounter for general adult medical examination with abnormal findings- Primary Anxiety and depression History of opioid abuse (HCC) Morbid obesity with body mass index (BMI) of 40.0 or higher (HCC) documented [facility]* Diagnosis Anxiety and depression- Primary At risk for obstructive sleep apnea Chronic bilateral low back pain without sciatica Hepatitis C antibody positive in blood Body mass index 40.0-44.9, adult (HCC) Body Mass Index 40.0-44.9, adult History of opioid abuse (HCC) documented [facility]* Diagnosis Morbid obesity with body mass index (BMI) of 40.0 or higher (HCC) [facility] Diagnosis Acute pharyngitis, unspecified etiology- Primary documented in this encounter [employer] Phone: evaluation note* Diagnosis Acute bronchitis, unspecified organism- Primary documented in this encounter [employer] Phone: evalhyirsh note* Diagnosis Masseter muscle spasm- Primary Spasm of muscle Other acute postprocedural pain documented in this encounter [employer] Phone: evaluation note* Diagnosis Dry socket- Primary Alveolitis of jaw documented in this encounter [employer] Phone: evaldshwsi note* Diagnosis Sprain of right ankle, unspecified ligament, initial encounter- Primary documented in this encounter [employer] [facility]* Diagnosis Toothache- Primary Unspecified disorder of the teeth and supporting structures Dental decay Unspecified dental caries documented [facility] Diagnosis 26 weeks gestation of - Primary state, incidental documented in this encounter [facility] instructions* Instructions* Anuj Quinn MD - 06/24/2020 Although many uiow-nkp-amowmjd cough cold flu sinus medications are safe in , I would contact her UNIVERSITY ADMINISTRATIVE ASSISTANT office in [facility] to verify what your UNIVERSITY ADMINISTRATIVE ASSISTANT group feels a safe in . Tylenol [...] Everywhere. * Sinusitis ([place]an) [facility] Phone: spital Discharge instructions* Attachments The following attachments cannot be sent through Care Everywhere. * URI (Upper Respiratory Infection) ([place]an) documented [facility] Phone: Swishspital Discharge instructions* Attachments The following attachments cannot be sent through Care Everywhere. * Muscle Strain ([place]an) documented in this [facility] Phone: spital Discharge instructions* Attachments The following attachments cannot be sent through Care Everywhere. * Viral Infections ([place]) documented in this [facility] Phone: Swishspital Discharge instructions* Attachments The following attachments cannot be sent through Care Everywhere. * Coronavirus Disease (COVID-19): General Info (Comoran) * Coronavirus Disease (COVID-19): Isolation (Comoran) * Piercing: Infection ([place]) documented in this [facility] Phone: SwishspMobile Embrace Discharge instructions* Instructions* Clark Moser MD - 07/22/2021 Use Tylenol or Motrin for pain. Take amoxicillin twice a day. Amoxicillin treats strep throat, ear infections, bronchitis and pneumonia. Call primary care doctor for close follow-up. * Attachments The following attachments cannot be sent through Care Everywhere. * Sore Throat ([place]an) [facility] Phone: spital Discharge instructions* Attachments The following attachments cannot be sent through Care Everywhere. * Bronchitis ([place]) [facility] [employer] Phone: spital Discharge instructions* Attachments The following attachments cannot be sent through Care Everywhere. * Cramp: Muscle (Comoran) * Pain Post-Surgery: Acute (Com[place]an) [facility] [employer] Phone: spital Discharge instructions* Attachments The following attachments cannot be sent through Care Everywhere. * Alpine Tooth Extraction: Post-op ([place]an) [facility] [employer] Phone: spital Discharge instructions No data available for this section [facility] Discharge instructions* Attachments The following attachments cannot be sent through Care Everywhere. * Ankle Sprain ([place]) [facility] Discharge instructions* Attachments The following attachments cannot be sent through Care Everywhere. * : Weeks 26 to 30 (Comoran) * : When to Call (After 20 Weeks): General Info (Comoran) * : Twins: General Info (Com[place]an) [facility] No data available for this section [facility] for referral (narrative)* Consultation (Routine) Status Reason Specialty Diagnoses / Procedures Referred By Contact Referred To Contact Authorized Nutrition Diagnoses Diet controlled gestational diabetes mellitus (GDM) in second trimester Lelo Gallegos MD [address] [place] [address] Nutrition Services [address] [place] [address] [facility] for visit Narrative* Consultation (Routine) - Pending Review Specialty Diagnoses / Procedures Referred By Contac t Referred To Contact Gastroenterology Diagnoses Hemorrhoids, unspecified hemorrhoid type Angle, Germania Polly, STAMP PAD MAKER [address] [place] [address] Holland Ann MD [address] [place] [address] Referral ID Status Reason Start Date Expiration Date V isits Requested Visits Authorized [id number] Pending Review 12/29/2020 01/14/2022 1 1 [facility] Assessments Diagnosis Accidental overdose of heroin, [...] FoundDocuments on File Type Date Recorded Patient Pharmaceutical Engineer Expl anation Advance Directives and Living Will Power of Damaged Freight Inspector Documents on File Type Date Recorded Patient Pharmaceutical Engineer Expl anation Advance Directives and Living Will 06/14/2019 7:25 AM does not have 0 Latest Code Status on File Code Status Date Activated Date Inactivated Comments Full Code 06/15/2019 9:29 AM 06/17/2019 4:38 PM Full Code - Unverified 06/14/2019 8:35 AM 06/15/2019 9:29 AM Documents on File Type Date Recorded Patient Pharmaceutical Engineer Expl anation Advance Directives and Living Will 06/14/2019 7:25 AM does not have 3/13/2 0 Latest Code Status on File Code Status Date Activated Date Inactivated Comments Full Code 06/15/2019 9:29 AM 06/17/2019 4:38 PM Full Code - Unverified 06/14/2019 8:35 AM 06/15/2019 9:29 AM Documents on File Type Date Recorded Patient Pharmaceutical Engineer Expl anation Advance Directives and Living Will 06/20/2019 1:10 PM does not have 3/13/2 0 Documents on File Type Date Recorded Patient Pharmaceutical Engineer Expl anation ACP-Advance Directive ACP-Power of Damaged Freight Inspector Documents on File Type Date Recorded Patient Pharmaceutical Engineer Expl anation Advance Directives and Living Will 06/20/2019 1:10 PM does not have 3/13/2 0 Documents on File Type Date Recorded Patient Pharmaceutical Engineer Expl anation Advance Directives and Living Will 08/28/2020 5:58 AM does not have 3/13/2 0 Latest Code Status on File Code Status Date Activated Date Inactivated Comments Full Code 08/28/2020 11:15 AM 08/30/2020 11:53 AM Full Code 08/28/2020 5:31 AM 08/28/2020 11:07 AM Full Code 06/15/2019 9:29 AM 06/17/2019 4:38 PM Documents on File Type Date Recorded Patient Pharmaceutical Engineer Expl anation Advance Directives and Living Will 08/28/2020 5:58 AM does not have 3/13/2 0 Latest Code Status on File Code Status Date Activated Date Inactivated Comments Full Code 08/28/2020 11:15 AM 08/30/2020 11:53 AM Full Code 08/28/2020 5:31 AM 08/28/2020 11:07 AM Full Code 06/15/2019 9:29 AM 06/17/2019 4:38 PM Documents on File Type Date Recorded Patient Pharmaceutical Engineer Expl anation Advance Directives and Livin g Will 05/15/2021 12:00 AM Latest Code Status on File Code Status Date Activated Date Inactivated Comments Full Code 10/05/2023 9:02 PM Hospital Course * Savita Stiles PA-C - 06/17/2019 10:12 AM EDT MED[facility] DISCHARGE SUMMARY Tia Levin Account: [id number] Admitted: 06/14/2019 Discharge Date/Time: 06/17/19 / 10:12 [...] amphetamine and heroine use who presented to [facility] 06/14/19 with complaints of abdominal pain and nausea. [facility] AST 1116 ALT 665 Alk phos 255 T bili 6.5 Lipase 8. CTAP revealed pericholecystic fluid vs GB wall thickening, no gallstones or hepatic pathology noted. Patient transferred to [facility] 06/14/2019 for further treatment and evaluation. [...] chart for all vitals, diagnostic data, and pension consultant notes. I discussed patient's case with Dr. Gregorio, Dr. Hay (GI) and RN. Discharge Medications Medication List ASK your doctor about these medications naltrexone microspheres Commonly known as: VivitroL Inject 380 (three hundred eighty) mg into the shoulder, thigh, or buttocks every 30 (thirty) days . Physician(s) Family: Physician No, Phone: None, Address: [facility] Follow Up: Javier Hay MD [address] [place] [address] [place] [id number] Follow up Repeat weekly CBC, CMP and PT/INR for the next 3-4 weeks then follow up out patient with Dr. Hay. Laboratory Follow Up by [facility]: Weekly labs for CBC, CMP, PT/INR Additional Information: Patient seen and examined day of discharge. For more information regarding patient's care, including complete radiology reports, please contact [facility] at Patient instructions, including activity, [...] amphetamine and heroine use who presented to [facility] 06/14/19 with complaints of abdominal pain and nausea. [facility] AST 1116 ALT 665 Alk phos 255 T bili 6.5 Lipase 8. CTAP revealed pericholecystic fluid vs GB wall thickening, no gallstones or hepatic pathology noted. Patient transferred to [facility] 06/14/2019 for further treatment and evaluation. [...] 1:16 PM EDT RESOURCES FOR PRIMARY CARE [facility] Primary Care Closed Opens tomorrow [address], [place] [address] [facility] [address], [place] [address] DIRECTIONS WEBSITE [facility] Walk-In Care Closed Opens tomorrow 11 AM [address] [facility] [place] [address] documented in this encounter* Instructions* Adia Dillon, [...] through Care Everywhere. * Poison Arabella - [place] - and [place] ([place]) documented in this encounter History of Present Illness * Javier Hay MD - 06/17/2019 9:59 AM EDT GASTROENTEROLOGY DAILY PROGRESS NOTE 1 Patient Name: Tia Levin MR #: [id number] Assessment/Plan: Elevated LFTs Assessment & Plan 29yo F with PMHx IVDU and hepatitis C who presents from [facility] with elevated LFTs and imaging c/f possible acute cholecystitis. GI consulted for further evaluation. - LFTs: AP 255, AST/ALT 665/1116, TB 6.5 (normal 02/2019) - CT w IVC ([facility]): moderate GBW thickening w [...] Auguste MD - 06/17/2019 7:41 AM EDT [facility] 06/17/2019 Tia Levin 1990 [id number] Assessment/Plan: Tia Levin is a 29 y.o. female with a history of amphetamine and heroine use who presented to [facility] 06/14/19 with complaints of abdominal pain and nausea. [facility] AST 1116 ALT 665 Alk phos 255 T bili 6.5 Lipase 8. CTAP revealed pericholecystic fluid vs GB wall thickening, no gallstones or hepatic pathology noted. Patient transferred to [facility] 06/14/2019 for further treatment and evaluation. [...] labs, diagnostics, vitals including pulse ox, and pension consultant/other provider recommendations. No acute issues overnight [...] 2 Patient Name: Tia Levin MR #: [id number] Assessment/Plan: Elevated LFTs Assessment & Plan 29yo F with PMHx IVDU and hepatitis C who presents from [facility] with elevated LFTs [...] Auguste MD - 06/16/2019 9:38 AM EDT [facility] Inpatient Progress Note 06/16/2019 Tia Levin 1990 [id number] Assessment/Plan: Tia Levin is a 29 y.o. female with a history of amphetamine and heroine use who presented to [facility] 06/14/19 with complaints of abdominal pain and nausea. [facility] AST 1116 ALT 665 Alk phos 255 T bili 6.5 Lipase 8. CTAP revealed pericholecystic fluid vs GB wall thickening, no gallstones or hepatic pathology noted. Patient transferred to [facility] 06/14/2019 for further treatment and evaluation. 1. Acute Liver Injury: [facility] AST 1116 ALT [...] recent labs, diagnostics, vitals including pulseox, and pension consultant/other provider recommendations. No acute issues overnight [...] 2 Patient Name: Tia Levin MR #: [id number] Assessment/Plan: Elevated LFTs Assessment & Plan 29yo [...] Pruitt MD - 06/15/2019 10:43 AM EDT [facility] Inpatient Progress Note 06/15/2019 Tia Levin 1990 [id number] Assessment/Plan: Tia Levin is a 29 y.o. female with a history of amphetamine and heroine use who presented to [facility] 06/14/19 with complaints of abdominal pain and nausea. [facility] AST 1116 ALT 665 Alk phos 255 T bili 6.5 Lipase 8. CTAP revealed pericholecystic fluid vs GB wall thickening, no gallstones or hepatic pathology noted. Patient transferred to [facility] 06/14/2019 for further treatment and evaluation. [...] not have a PCP and refused a rifle case repairer consult for assistance. Verified insurance and Rx. [...] 10:48 AM EDT Patient on T[facility] EPIC [facility] for follow-up. After provider review, I called and spoke with patient and changed her appointment to a phone visit, same date/time. In addition, as per provider request, I spoke with patient about going to any [facility] to have her lab taken so it will be available for review on 06/20/19 when she is called for her TCC appointment. Patient agreed with this plan. documented in this encounter* Anastasiia Garza CNP - 06/20/2019 1:16 PM EDT Attempted to call the patient for her tele-health visit today though she did not answer. Called [employer] [facility] number 5 times and home phone once, [...] daily (lemon water) Occasional iced coffee at [employer]. Was drinking a lot of Mountain Dew [...] or higher ([facility]) Farhat Vang MD [address] Referral ID Status Reason Start Date Expiration Date Visits Requested Visits Authorized [id number] Authorized Specialty Services Required/Pat ient's Best Interest 04/16/2021 04/16/2022 1 1 Specialty Diagnoses / Procedures Referred By Contac t Referred To Contact Neurosurgery Diagnoses Chronic bilateral low back pain without sciatica Farhat Vang MD [address] [address] Carina Kline MD [address] [address] Referral ID Status Reason Start Date Expiration Date Visits Requested Visits Authorized [id number] Authorized Specialty Services Required/Pat ient's Best Interest 05/14/2021 05/14/2022 1 1 Specialty Diagnoses / Procedures Referred By Contac t Referred To Contact Rehabilitation Diagnoses Chronic bilateral low back pain without sciatica Farhat Vang MD [address] [address] Referral ID Status Reason Start Date Expiration Date Visits Requested Visits Authorized [id number] Authorized Specialty Services Required/Pat ient's Best Interest 05/14/2021 05/14/2022 1 1 Specialty Diagnoses / Procedures Referred By Contac t Referred To Contact Diagnoses At risk for obstructive sleep apnea Farhat Vang MD [address] [address] Gabriel Jacinto MD [address] [place], [place] [address]m[address] [place] [address] Referral ID Status Reason Start Date Expiration Date Visits Requested Visits Authorized [id number] Authorized Specialty Services Required/Pat ient's Best Interest 05/14/2021 05/14/2022 1 1 Additional Source Comments Reason for Visit (unrecogniz ed section and content) Reason Comments Drug Overdose Pt was brought in by [facility] for heroin OD. Prior to arrival [facility] gave 4 mg nasal Narcan. Reason Comments [...] in second trimester Lelo Gallegos MD [address] [place] [address] Nutrition Services [address] [place] [address] Reason Comments Gestational Diabetes Status Reason Specialty Diagnoses / Procedures Referred By Contact Referred To Contact Closed Endocrinology Diagnoses Diet controlled gestational diabetes mellitus (GDM) in second trimester Roslyn Stevenson MD [address] [place] [id number] Lelo Gallegos MD [address] [place] [address] Reason Comments Pharyngitis sore throat and head [...] or higher ([facility]) Farhat Vang MD [address] [facility] [address] [place] [address] Nutrition Services [address] [place] [address] Referral ID Status Reason Start Date Expiration Date Visits Requested Visits Authorized [id number] Authorized Specialty Services Required/Pat ient's Best Interest [...] and Physical Note 06/14/19 Tia Levin 1990 [id number] Assessment/Plan: Tia Levin is a 29 y.o. female with a history of amphetamine and heroine use who presented to [facility] 06/14/19 with complaints of abdominal pain and nausea. OL AST 1116 ALT 665 Alk phos 255 T bili 6.5 Lipase 8. CTAP revealed pericholecystic fluid vs GB wall thickening, no gallstones or hepatic pathology noted. Patient transferred to [facility] 06/14/2019 for further treatment and evaluation. 1. Elevated LFTs: [facility] AST 1116 ALT [...] amphetamine and heroine use who presented to [facility] 06/14/19 with complaints of abdominal pain and nausea. OL AST 1116 ALT 665 Alk phos 255 T bili 6.5 Lipase 8. CTAP revealed pericholecystic fluid vs GB wall thickening, no gallstones or hepatic pathology noted. Patient transferred to [facility] 06/14/2019 for further treatment and evaluation. [...] labs, diagnostics, vitals including pulse ox, and pension consultant/other provider recommendations. Discussed with collaborating physician [...] file Gets together: Not on file Attends druze service: Not on file Active member of [...] reviewed, including documentation from previous hospitalizations and pension consultant recommendations as summarized below. Briefly, patient [...] Name: Tia Levin Admit Date: MR #: [id number] : 1990 Senior addendum 29 y/o F [...] Hepatitis C, and hx of presents to [facility] with jaundice and abdominal pain. -RUQ [...] Fleming MD General Surgery, PGY 2 Pager# [phone] 06/16/2019, 10:43 AM After 5 PM and on Weekends, please page [phone] (Surgery Clinical Pharmacologist cargo operations agent) History of Present Illness: Patient presented for [...] file Gets together: Not on file Attends druze service: Not on file Active member of [...] patient. I discussed the case with the resident/GRAZING AIDE and agree with the findings and plan as documented in his/her note and/or any note I supplied. Associated Order(s): IP CONSULT TO GASTROENTEROLOGY GASTROENTEROLOGY CONSULT NOTE 4 Patient Name: Tia Levin Admit Date: MR #: [id number] : 1990 Physicians: Physician No (Family); Brie Moreno MD (Referring) Consult Ordered By: Franny Sims PA-C Assessment and Plan: Other Elevated LFTs Assessment & Plan 29yo F with PMHx IVDU and hepatitis C who presents from [facility] with elevated LFTs [...] IVDU and hepatitis C who presents from [facility] with elevated LFTs [...] she has been in and out of intermediate over past 3mo. She denies EtOH. Denies [...] file Gets together: Not on file Attends druze service: Not on file Active member of [...] Invalid input(s): CO2, LABALBU Aisha Hare CNP [facility] (for [...] reviewed, including documentation from previous hospitalizations and pension consultant recommendations as summarized below. Briefly, patient [...] IVDU and hepatitis C who presents from [facility] with elevated LFTs [...] secti on and content) ED PROVIDER NOTE [facility] EMERGENCY DEPARTMENT NAME: Tia Levin AGE: 29 y.o. : 1990 VISIT DATE: 08/13/2019 CSN: [id number] PCP: Physician No Chief Complaint Patient presents with Drug Overdose This is a 29-year-old female brought to the ER via EMS for evaluation. Time my exam patient is alert and oriented. She states she was in the [place] parking lot bent over in her car [...] file Gets together: Not on file Attends druze service: Not on file Active member of [...] nursing note reviewed. Exam conducted with a telex operator present (Nurses at the bedside). Constitutional: [...] for helping people with drug addiction. [address] [facility] [facility] [address] Contact information for after-discharge care Follow-up information has not been specified. Adia Dillon CNP 08/13/191948 Pt brought in by [place] [facility], states she was found by [facility] unresponsive [...] section and content) DATE CREATED AUTHOR 08/21/2019 [facility] DATE CREATED AUTHOR AUTHOR'S ORGANIZ ATION 02/15/2021 [facility] DATE CREATED AUTHOR AUTHOR'S ORGANIZ ATION 05/18/2021 [facility] DATE CREATED AUTHOR AUTHOR'S ORGANIZ ATION 07/02/2021 [facility] DATE CREATED AUTHOR AUTHOR'S ORGANIZ ATION 07/09/2021 [facility] DATE CREATED AUTHOR AUTHOR'S ORGANIZ ATION 07/05/2022 [facility] DATE CREATED AUTHOR AUTHOR'S ORGANIZ ATION 05/14/2023 [facility] DATE CREATED AUTHOR AUTHOR'S ORGANIZ ATION 10/07/2023 [facility] DATE CREATED AUTHOR AUTHOR'S ORGANIZ ATION 11/11/2023 [facility] DATE CREATED AUTHOR AUTHOR'S ORGANIZ ATION 11/12/2023 [facility] Ordered Prescriptions (unrec ognized section and content) [...]
Care Teams (unrecognized sec tion and content) Service Order Expediter Relationship Specialty Start Date End Date No, Physician [facility] PCP - General 12/29/20 Germania Galaviz, STAMP PAD MAKER [address] [facility] [address] [place] [address] Nurse Practitioner Obstetrics/Gynecology 11/01/19 Service Order Expediter Relationship Specialty Start Date End Date No, Physician [facility] PCP - General 12/29/20 Germania Galaviz, STAMP PAD MAKER [address] [facility] [address] [place] [address] Nurse Practitioner Obstetrics/Gynecology 11/01/19 Service Order Expediter Relationship Specialty Start Date End Date Farhat Vang MD [address] [facility] [address] [place] [address] PCP - General Family Medicine 04/16/21 Germania Galaviz, STAMP PAD MAKER [address] [facility] [place] [address] Nurse Practitioner Obstetrics/Gynecology 11/01/19 Radha Pantoja MD [address] [place] [address] Towboat Pilot Obstetrics/Gynecology 02/02/21 Yvonne Santos MD [address] [place] [address] Towboat Pilot Obstetrics/Gynecology 02/02/21 Regla Dias CN [address] [place] [address] Pediatric Acute Care Unit Nurse Obstetrics/Gynecology 02/02/21 Service Order Expediter Relationship Specialty Start Date End Date Farhat Vang MD [address] [address] PCP - General Family Medicine 04/16/21 Germania Galaviz, STAMP PAD MAKER [address] [facility] [place] [address] Nurse Practitioner Obstetrics/Gynecology 11/01/19 Radha Pantoja MD [address] [facility] [place] [address] Towboat Pilot Obstetrics/Gynecology 02/02/21 Yvonne Santos MD [address] [place] [address] Towboat Pilot Obstetrics/Gynecology 02/02/21 Regla Dias CN [address] [place] [address] Pediatric Acute Care Unit Nurse Obstetrics/Gynecology 02/02/21 Service Order Expediter Relationship Specialty Start Date End Date Farhat Vang MD [address] [facility] [address] [place] [address] PCP - General Family Medicine 04/16/21 Germania Galaviz, [employer] [address] [place] [address] Nurse Practitioner Obstetrics/Gynecology 11/01/19 Radha Pantoja MD [address] [place] [address] Towboat Pilot Obstetrics/Gynecology 02/02/21 Yvonne Santos MD [address] [facility] [address] [place] [address] Towboat Pilot Obstetrics/Gynecology 02/02/21 Regla Dias, [facility] [address] [place] [address] Pediatric Acute Care Unit Nurse Obstetrics/Gynecology 02/02/21 Service Order Expediter Relationship Specialty Start Date End Date Linda Sheppard DO [address] [facility] [place] [address] PCP - General Family Medicine 09/04/22 Service Order Expediter Relationship Specialty Start Date End Date Linda Sheppard, [address] [place] [address] PCP - General Family Medicine 09/04/22 Service Order Expediter Relationship Specialty Start Date End Date Linda Sheppard DO [address] [facility] [place] [address] PCP - General Family Medicine 09/04/22 FOR [...] BE BASED ON THE PRIMARY CLINICAL RECORDS. [facility] [employer] [facility]. provides no warranty or guarantee of the accuracy or completeness of information in this document.
--- NOTE | 2023-11-15 08:48 | US_ITS ---
[address] [address] Patient Name: TIA MONROE MRN: [id number] date: 1990 Sex: F Assigned Patient Location: US Current Patient Location: Accession/Order Number: [id number] Exam Date: 11/15/2023 08:50 Report Date: 11/15/2023 12:41 At the request of: DARWIN MONROY Procedure: US OB BPP w non-stress EXAMINATION: US OB BPP w non-stress, US OB BPP w non-stress HISTORY:Monochorionic diamniotic twin O30.039 COMPARISON: Ultrasound OB biophysical TECHNIQUE: Ultrasound biophysical profile was performed in the radiology department. BREATHING MOVEMENTS: 2/2 GROSS BODY MOVEMENTS: 2/2 TONE: 2/2 QUALITATIVE AMNIOTIC FLUID VOLUME: 2/2 PRESENTATION: Breech/Breech HEART RATE: 184/122 AMNIOTIC FLUID VOLUME: Largest pocket 7.7 x 4.3 cm / Largest pocket 5.9 x 8.8 cm GESTATIONAL AGE: 32 weeks 5 days) US/US OB BPP w non-stress IMPRESSION: Total biophysical profile score: Baby A: 8 / Baby B: 8 Electronically authenticated by: BETTYE DANIELS Date: 11/15/2023 12:41
--- NOTE | 2023-11-15 08:49 | US_ITS ---
[address] [address] Patient Name: TIA MONROE MRN: [id number] date: 1990 Sex: F Assigned Patient Location: US Current Patient Location: Accession/Order Number: [id number] Exam Date: 11/15/2023 08:50 Report Date: 11/15/2023 12:41 At the request of: DARWIN MONROY Procedure: US OB BPP w non-stress EXAMINATION: US OB BPP w non-stress, US OB BPP w non-stress HISTORY:Monochorionic diamniotic twin O30.039 COMPARISON: Ultrasound OB biophysical TECHNIQUE: Ultrasound biophysical profile was performed in the radiology department. BREATHING MOVEMENTS: 2/2 GROSS BODY MOVEMENTS: 2/2 TONE: 2/2 QUALITATIVE AMNIOTIC FLUID VOLUME: 2/2 PRESENTATION: Breech/Breech HEART RATE: 184/122 AMNIOTIC FLUID VOLUME: Largest pocket 7.7 x 4.3 cm / Largest pocket 5.9 x 8.8 cm GESTATIONAL AGE: 32 weeks 5 days) US/US OB BPP w non-stress IMPRESSION: Total biophysical profile score: Baby A: 8 / Baby B: 8 Electronically authenticated by: BETTYE DANIELS Date: 11/15/2023 12:41
[2023-11-15 09:42] VITALS: BP 117/72; PULSE 98
== END 2023-11-15 10:38 | disposition home or self-care (01) ==
LOC: US 06:47 → FBC 08:45
PROVIDERS: Visit Provider Obstetrics & Gynecology
DX: O30.039 Twin pregnancy, monochorionic/diamniotic, unspecified trimester (principal); Z3A.32 32 weeks gestation of pregnancy
CPT/HCPCS: 76818

== ENCOUNTER 2023-11-18 08:05 | Outpatient (OUT) | payer BC, SELFPAY ==
[2023-11-18 11:12] VITALS: BP 111/69; PULSE 106
== END 2023-11-18 11:38 | disposition home or self-care (01) ==
LOC: FBCO 08:05 → FBC 10:59
PROVIDERS: Visit Provider Obstetrics & Gynecology
DX: O30.033 Twin pregnancy, monochorionic/diamniotic, third trimester (principal); Z3A.00 Weeks of gestation of pregnancy not specified
CPT/HCPCS: 59025

== ENCOUNTER 2023-11-22 07:02 | Outpatient (OUT) | payer BC, SELFPAY ==
--- OUTSIDE RECORDS SUMMARY | 2023-11-22 07:06 | XMS_ITS | CCD ---
Author Organization [facility] ion Partnership [facility] Care Team Providers Care Recreation Teacher Name Role Phone Unavailable Primary Care Provider Unavailabl e No, Physician Primary Care Provider Unavailabl e HODA MADERA Unavailable Unavailable Primary Care Provider Unavailabl e No, Physician Primary Care Provider Unavailabl Germania Becerra Unavailable Roslyn Stevenson Unavailable Radha Pantoja Unavailable Yvonne Santos Unavailable Larissa, Regla Corina Unavailable No, Physician Primary Care Provider UnavailGermania Rodriguez CNP Unavailable [phone] Roslyn Stevenson MD Unavailable Radha Pantoja MD [...] Pantoja MD Unavailable Yvonne Santos MD Unavailable [phone] Larissa KHOURY, Regla Corina Unavailable Ciera PEDRAZA, [...] Unavailable NO, PHYSICIAN Primary Care Unavailable YVONNE ASNTOS Admitting Unavailable NO, PHYSICIAN Primary Care Unavailable [...] Unavailable Linda Sheppard DO Primary Care Provider [phone] Jonathan Martinez Attending Unavailable Zac Fields Attending [...] Attending Unavailable LINDA SHEPPARD Primary Care Unavailable JOE JARAMILLO Attending Unavailable VIOLET JUAREZ Consulting Unavailable VIOLET JUAREZ Admitting Unavailable VIOLET JUAREZ [...] day(s), # 14 tab(s), Refills(s) 0, Pharmacy: [facility], 160, cm, 05/11/23 21:53:00 EST, Height/Length [...] oral solution (2 sources) alpha-Adrenergic Agonist, Uncompetitive K-rmkfup-V-aspartate Receptor Antagonist, Sigma-1 Agonist Start: End: take 5 mL by mouth four times daily as needed for cough brompheniramine-pse udoephedrine-DM (BROMFED DM) 2-30-10 MG/5ML syrup Take 5 mLs by mouth 4 times daily as needed for Congestion or Cough 240 mL 1 10/12/2021 11/11/2021 Active Start: 11-07-2020 End: 11-12-2020 take 5 mL by mouth three times daily as needed for cough qxbfikhyslafceg-oyuxzzgojastshw-BL 2-30- 10 MG/5ML syrup Take 5 mLs [...] 0, (swish and spit; do not swallow), [facility], 160, cm, 05/11/23 21:53:00 EST, Height/Length [...] Active Dextromethorphan / guaiFENesin (2 sources) Uncompetitive O-jbymgp-F-asparta te Receptor Antagonist, Sigma-1 Agonist End: 06-24-2020 [...] day(s), # 15 tab(s), Refills(s) 0, Pharmacy: [facility], 160, cm, 05/13/23 11:33:00 EST, Height/Length [...] for Pain. 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) use of opiate analgesic] Onset: 05-18-2019 [...] Coag (Bld) [Time] 29.8 s Normal 23.9-33.8 [facility] Comment on above: Result Comment: IV Heparin Therapy Range: 62.0-94.0 Performed By: #### P T, PTT, BMP, CDP, TROPI #### [facility] [address] [place] [address] Railroad Passenger Agent: Guero Sandoval MD Basic Metabolic Profon 10-04 Anion gap [Moles/Vol] 13 mmol/L Normal - [facility] Comment on above: Performed By: #### P T, PTT, BMP, CDP, TROPI #### [facility] [address] [place] [address] Railroad Passenger Agent: Guero Sandoval MD BUN/CRE Ratio Result cannot be calculated, Creatinine below linear range. Normal - [facility] Comment on above: Performed By: #### P T, PTT, BMP, CDP, TROPI #### [facility] [address] [place] [address] Railroad Passenger Agent: Guero Sandoval MD Calcium [Mass/Vol] 8.7 mg/dL Normal 8.6-10.4 [facility] Comment on above: Performed By: #### P T, PTT, BMP, CDP, TROPI #### [facility] [address], [place] [phone] Railroad Passenger Agent: Guero Sandoval MD Chloride [Moles/Vol] 105 mmol/L Normal 98-107 [facility] Comment on above: Performed By: #### P T, PTT, BMP, CDP, TROPI #### [facility] [address], [place] [phone] Railroad Passenger Agent: Guero Sandoval MD CO2 [Moles/Vol] 18 mmol/L Low 20-31 [facility] Comment on above: Performed By: #### P T, PTT, BMP, CDP, TROPI #### [facility] [address], [place] [phone] Railroad Passenger Agent: Guero Sandoval MD Creatinine [Mass/Vol] mg/dL Low 0.5-0.9 [facility] Comment on above: Performed By: #### P T, PTT, BMP, CDP, TROPI #### [facility] [address], [place] [phone] Railroad Passenger Agent: Guero Sandoval MD eGFR Can not be calculated Normal >60 [facility] Comment on above: Result Comment: These results [...] T, PTT, BMP, CDP, TROPI #### [facility] [address] [place] [address] Railroad Passenger Agent: Guero Sandoval MD Glucose [Mass/Vol] 111 mg/dL High 70-99 [facility] Comment on above: Performed By: #### P T, PTT, BMP, CDP, TROPI #### [facility] [address] [place] [address] Railroad Passenger Agent: Guero Sandoval MD Potassium [Moles/Vol] 3.8 mmol/L Normal 3.7-5.3 [facility] Comment on above: Performed By: #### P T, PTT, BMP, CDP, TROPI #### [facility] [address] [place] [address] Railroad Passenger Agent: Guero Sandoval MD Sodium [Moles/Vol] 136 mmol/L Normal 135-144 [facility] Comment on above: Performed By: #### P T, PTT, BMP, CDP, TROPI #### [facility] [address] [place] [address] Railroad Passenger Agent: Guero Sandoval MD Urea nitrogen [Mass/Vol] 6 mg/dL Normal 6-20 [facility] Comment on above: Performed By: #### P T, PTT, BMP, CDP, TROPI #### [facility] [address] [place] [address] Railroad Passenger Agent: Guero Sandoval MD Brain Natri. Peptideon 10-04 Pro-BNP <36 Normal 0-300 [facility] Comment on above: Result Comment: An a ge-independent cutoff point of 300 pg/ml has a 98% negative predictive value excluding acute heart failure. Performed By: #### B DRYWALL PROFESSIONAL, TROPI #### [facility] [address] [place] [address] Railroad Passenger Agent: Thor Hernández MD CBC with Diffon 10-05-2023 Abs. Basophil 0.04 k/uL Normal 0.00-0.20 [facility] Comment on above: Performed By: #### P T, PTT, BMP, CDP, TROPI #### [facility] [address] [place] [phone] Railroad Passenger Agent: Guero Sandoval MD Abs.Imm.Granulocyte 0.16 k/uL Normal 0.00-0.30 [facility] Comment on above: Performed By: #### P T, PTT, BMP, CDP, TROPI #### [facility] [address] [place] [address] Railroad Passenger Agent: Guero Sandoval MD Abs.Neutrophil (Seg) 8.05 k/uL High 2.5-7.0 [facility] Comment on above: Performed By: #### P T, PTT, BMP, CDP, TROPI #### [facility] [address] [place] [address] Railroad Passenger Agent: Guero Sandoval MD Basophils/100 WBC (Bld) 0 % Normal 0-2 [facility] Comment on above: Performed By: #### P T, PTT, BMP, CDP, TROPI #### [facility] [address] [place] [phone] Railroad Passenger Agent: Guero Sandoval MD Eosinophils (Bld) [#/Vol] 0.08 10*3/uL Normal 0.00-0.4 0 [facility] Comment on above: Performed By: #### P T, PTT, BMP, CDP, TROPI #### [facility] [address] [place] [address] Railroad Passenger Agent: Guero Sandoval MD Eosinophils/100 WBC (Bld) 1 % Normal 0-5 [facility] Comment on above: Performed By: #### P T, PTT, BMP, CDP, TROPI #### [facility] [address] [place] [address] Railroad Passenger Agent: Guero Sandoval MD Erythrocyte distribution width (RBC) [Ratio] 13.1 % Normal 12.1-15.2 [facility] Comment on above: Performed By: #### P T, PTT, BMP, CDP, TROPI #### [facility] [address] [place] [address] Railroad Passenger Agent: Guero Sandoval MD Hematocrit (Bld) [Volume fraction] 28.8 % Low 36.0-46.0 [facility] Comment on above: Performed By: #### P T, PTT, BMP, CDP, TROPI #### [facility] [address] [place] [phone] Railroad Passenger Agent: Guero Sandoval MD Hemoglobin (Bld) [Mass/Vol] 9.8 g/dL Low 12.0-16.0 [facility] Comment on above: Performed By: #### P T, PTT, BMP, CDP, TROPI #### [facility] [address] [place] [address] Railroad Passenger Agent: Guero Sandoval MD Immature granulocytes/100 WBC (Bld) 2 % Normal 0-5 [facility] Comment on above: Performed By: #### P T, PTT, BMP, CDP, TROPI #### [facility] [address] [place] [phone] Railroad Passenger Agent: Guero Sandoval MD Lymphocytes (Bld) [#/Vol] 1.61 10*3/uL Normal 1.00-4.8 0 [facility] Comment on above: Performed By: #### P T, PTT, BMP, CDP, TROPI #### [facility] [address] [place] [phone] Railroad Passenger Agent: Guero Sandoval MD Lymphocytes/100 WBC (Bld) 15 % Normal 15-40 [facility] Comment on above: Performed By: #### P T, PTT, BMP, CDP, TROPI #### [facility] [address] [place] [phone] Railroad Passenger Agent: Guero Sandoval MD MCH (RBC) [Entitic mass] 27.7 pg Normal 26.0-34.0 [facility] Comment on above: Performed By: #### P T, PTT, BMP, CDP, TROPI #### [facility] [address] [place] [address] Railroad Passenger Agent: Guero Sandoval MD MCHC (RBC) [Mass/Vol] 34.0 g/dL Normal 31.0-37.0 [facility] Comment on above: Performed By: #### P T, PTT, BMP, CDP, TROPI #### [facility] [address] [place] [phone] Railroad Passenger Agent: Guero Sandoval MD MCV (RBC) [Entitic vol] 81.4 fL Normal 80.0-100.0 [facility] Comment on above: Performed By: #### P T, PTT, BMP, CDP, TROPI #### [facility] [address] [place] [address] Railroad Passenger Agent: Guero Sandoval MD Monocytes (Bld) [#/Vol] 0.77 10*3/uL Normal 0.00-1.00 [facility] Comment on above: Performed By: #### P T, PTT, BMP, CDP, TROPI #### [facility] [address] [place] [address] Railroad Passenger Agent: Guero Sandoval MD Monocytes/100 WBC (Bld) 7 % Normal 4-8 [facility] Comment on above: Performed By: #### P T, PTT, BMP, CDP, TROPI #### [facility] [address] [place] [phone] Railroad Passenger Agent: Guero Sandoval MD Neutrophil (Seg) 75 % Normal 47-75 [facility] Comment on above: Performed By: #### P T, PTT, BMP, CDP, TROPI #### [facility] [address] [place] [address] Railroad Passenger Agent: Guero Sandoval MD Platelet mean volume (Bld) [Entitic vol] 10.2 fL Normal 6.0-12.0 [facility] Comment on above: Performed By: #### P T, PTT, BMP, CDP, TROPI #### [facility] [address] [place] [address] Railroad Passenger Agent: Guero Sandoval MD Platelets (Bld) [#/Vol] 275 10*3/uL Normal 140-450 [facility] Comment on above: Performed By: #### P T, PTT, BMP, CDP, TROPI #### [facility] [address] [place] [address] Railroad Passenger Agent: Guero Sandoval MD RBC (Bld) [#/Vol] 3.54 10*6/uL Low 4.00-5.20 [facility] Comment on above: Performed By: #### P T, PTT, BMP, CDP, TROPI #### [facility] [address] [place] [address] Railroad Passenger Agent: Guero Sandoval MD WBC (Bld) [#/Vol] 10.7 10*3/uL Normal 3.5-11.0 [facility] Comment on above: Performed By: #### P T, PTT, BMP, CDP, TROPI #### [facility] [address] [place] [address] Railroad Passenger Agent: Guero Sandoval MD CT CHEST PULMONARY EMBOLISM [...] Carlos Petersen MD 10/05/23 Final result Normal [facility] Liver Profileon 10-05-2023 Albumin [Mass/Vol] 3.0 g/dL Low 3.5-5.2 [facility] Comment on above: Performed By: #### L IVP #### [facility] [address] [place] [address] Railroad Passenger Agent: Guero Sandoval MD Alkaline Phos 74 U/L Normal 35-104 [facility] Comment on above: Performed By: #### L IVP #### [facility] [address] [place] [address] Railroad Passenger Agent: Guero Sandoval MD ALT [Catalytic activity/Vol] U/L Low 5-33 [facility] Comment on above: Performed By: #### L IVP #### [facility] [address], [place] [phone] Railroad Passenger Agent: Guero Sandoval MD AST [Catalytic activity/Vol] 9 U/L Normal <32 [facility] Comment on above: Performed By: #### L IVP #### [facility] [address], [place] [phone] Railroad Passenger Agent: Guero Sandoval MD Bilirubin [Mass/Vol] 0.3 mg/dL Normal 0.3-1.2 [facility] Comment on above: Performed By: #### L IVP #### [facility] [address], [place] [phone] Railroad Passenger Agent: Guero Sandoval MD Bilirubin, Indirect Can not be calculated Normal 0.0-1.0 [facility] Comment on above: Performed By: #### L IVP #### [facility] [address], [place] [phone] Railroad Passenger Agent: Guero Sandoval MD Bilirubin.indirect [Mass/Vol] mg/dL Normal <0.3 [facility] Comment on above: Performed By: #### L IVP #### [facility] [address], [place] [phone] Railroad Passenger Agent: Guero Sandoval MD Protein [Mass/Vol] 5.9 g/dL Low 6.4-8.3 [facility] Comment on above: Performed By: #### L IVP #### [facility] [address], [place] [phone] Railroad Passenger Agent: Guero Sandoval MD PTon 10-05-2023 INR Coag (PPP) [Relative time] 1.0 {INR} Normal [facility] Comment on above: Result Comment: Therapeutic Range: Moderate Anticoagulant Intensity: INR = 2.0-3.0 High Anticoagulant Intensity: INR = 2.5-3.5 Performed By: #### P T, PTT, BMP, CDP, TROPI #### [facility] [address] [place] [address] Railroad Passenger Agent: Guero Sandoval MD PT Coag (PPP) [Time] 13.6 s Normal 11.5-14.2 [facility] Comment on above: Performed By: #### P T, PTT, BMP, CDP, TROPI #### [facility] [address] [place] [address] Railroad Passenger Agent: Guero Sandoval MD Troponinon 10-05-2023 Troponin, High Sens <6 Normal 0-14 [facility] Comment on above: Result Comment: High Sensitivity Troponin values cannot be compared with other Troponin methodologies. Performed By: #### B DRYWALL PROFESSIONAL, TROPI #### [address] [phone] Railroad Passenger Agent: Thor Hernández MD Troponin, High Sens <6 Normal 0-14 [facility] Comment on above: Result Comment: High Sensitivity Troponin values cannot be compared with other Troponin methodologies. Performed By: #### P T, PTT, BMP, CDP, TROPI #### [facility] [address] [place] [address] Railroad Passenger Agent: Guero Sandoval MD UA w/Reflex Cultureon 2023 Bilirubin, SemiQt,Ur Negative Normal NEG [facility] Comment on above: Performed By: #### U MICAO, UAX #### [employer] [address] [place] [phone] Railroad Passenger Agent: Thor Hernández MD Blood, Urine Negative Normal NEG [facility] Comment on above: Performed By: #### U MICAO, UAX #### [facility] [employer] [address] [place] [address] Railroad Passenger Agent: Thor Hernández MD Clarity (U) Cloudy Abnormal CLEAR [facility] Comment on above: Performed By: #### U MICAO, UAX #### [facility] [address] [place] [address] Railroad Passenger Agent: Thor Hernández MD Color (U) Yellow Normal YEL [facility] Comment on above: Performed By: #### U MICAO, UAX #### [facility] [address] [place] [phone] Railroad Passenger Agent: Thor Hernández MD Glucose Ql (U) 1+ mg/dL Abnormal NEG [facility] Comment on above: Performed By: #### U MICAO, UAX #### [facility] [address] [place] [phone] Railroad Passenger Agent: Thor Hernández MD Ketones Ql (U) TRACE Abnormal NEG [facility] Comment on above: Performed By: #### U MICAO, UAX #### [address] [address] Railroad Passenger Agent: Thor Hernández MD Leukocyte esterase Test strip Ql (U) Negative Normal NEG [facility] Comment on above: Performed By: #### U MICAO, UAX #### [address] [address] Railroad Passenger Agent: Thor Hernnádez MD Nitrite,Ur Negative Normal NEG [facility] Comment on above: Performed By: #### U MICAO, UAX #### [address] [phone] Railroad Passenger Agent: Thor Hernández MD PH,Ur 6.0 Normal 5.0-8.0 [facility] Comment on above: Performed By: #### U MICAO, UAX #### [facility] [address] [place] [address] Railroad Passenger Agent: Thor Hernández MD Protein Ql (U) TRACE Abnormal NEG [facility] Comment on above: Performed By: #### U MICAO, UAX #### [facility] [address] [place] [address] [place] [address] Railroad Passenger Agent: Thor Hernández MD Spec. [place],Ur 1.028 Normal 1.005-1.030 [facility] Comment on above: Performed By: #### U MICAO, UAX #### [address] [address] Railroad Passenger Agent: Thor Hernández MD Urobilinogen,Ur Normal Normal 0.0-1.0 [facility] Comment on above: Performed By: #### U MICAO, UAX #### [address] [address] Railroad Passenger Agent: Thor Hernández MD Urinalysis,Microon 4 Bacteria MODERATE Abnormal NONE [facility] Comment on above: Performed By: #### U RICHYO, UAX #### [address] [address] Railroad Passenger Agent: Thor Hernández MD Casts 2 TO 5 HYALINE Normal 0-8 [facility] Comment on above: Result Comment: Refe rence range defined for non-centrifuged specimen. Performed By: #### U MICAO, UAX #### [address] [address] Railroad Passenger Agent: Thor Hernández MD Epithelial cells LM Ql (Urine sed) 20 TO 50 Normal 0-5 [facility] Comment on above: Performed By: #### U MICAO, UAX #### [facility] [address] [place] [phone] Railroad Passenger Agent: Thor Hernández MD Urine RBC's 0 TO 2 Normal 0-4 [facility] Comment on above: Result Comment: Refe rence range defined for non-centrifuged specimen. Performed By: #### U MICAO, UAX #### [facility] [address] [place] [address] Railroad Passenger Agent: Thor Hernández MD Urine WBC's 5 TO 10 Normal 0-5 [facility] Comment on above: Performed By: #### U KAYDEN UAX #### [facility] [address] [place] [address] Railroad Passenger Agent: Thor Hernández MD AFP, Maternalon 07-28-2023 Determined by Ultrasound Normal [facility] Comment on above: Performed By: #### T SH, FT4, FT3 #### [facility] [address] [place] [address] Railroad Passenger Agent: Thor Hernández MD #### AADIANEM #### [facility] [address] [place] [phone] Railroad Passenger Agent: Thor Hernández MD [facility] [employer] [address] [place], [place] [phone] Railroad Passenger Agent: Tim Vizcarra MD Due Date SEE NOTE Normal [facility] Comment on above: Result Comment: Resu lts for Estimated Due Date: 01 06 24 Performed By: #### T SH, FT4, FT3 #### [facility] [address] [place] [phone] Railroad Passenger Agent: Thor Hernández MD #### AAFPM #### [facility] [address] [place] [phone] Railroad Passenger Agent: Thor Hernández MD [facility] [address] [place], [place] [phone] Railroad Passenger Agent: Tim Vizcarra MD Family History No Normal [facility] Comment on above: Performed By: #### T SH, FT4, FT3 #### [facility] [address] [place] [address] Railroad Passenger Agent: Thor Hernández MD #### AAFPM #### [facility] [address] [place] [phone] Railroad Passenger Agent: Thor Hernández MD [facility] [address] [place] [address] Railroad Passenger Agent: Tim Vizcarra MD Gestat Age (exact) 16 wks, 4 days Normal [facility] Comment on above: Performed By: #### T SH, FT4, FT3 #### [address] [address] Railroad Passenger Agent: Thor Hernández MD #### AAFPM #### [address] [address] Railroad Passenger Agent: Thor Hernández MD [address] [phone] Railroad Passenger Agent: Tim Vizcarra MD Ins Req Matern Diab No Normal [facility] Comment on above: Performed By: #### T SH, FT4, FT3 #### [address] [address] Railroad Passenger Agent: Thor Hernández MD #### AAFPM #### [address] [address] Railroad Passenger Agent: Thor Hernández MD [address] [phone] Railroad Passenger Agent: Tim Vizcarra MD Interpretation Screen Neg Normal [facility] Comment on above: Result Comment: (NOT E) INTERPRETATION: SCREEN NEGATIVE for open spina bifida Neural Tube Defects (NTD) Negative Pre-Test Post-Test Cutoff Neural Tube Defects Risks 1:452 1:3230 1:103 Comments: The risk of an open neural tube defect is less than the twin screening cut-off. This test was developed and its performance characteristics determined by [employer]. It has not been cleared or approved by the [place] Food and Drug Administration. This test was performed in a CLIA certified laboratory and is intended for clinical purposes. Performed By: #### T SH, FT4, FT3 #### [address] [address] Railroad Passenger Agent: Thor Hernández MD #### AAFPM #### [facility] [address] [place] [phone] Railroad Passenger Agent: Thor Hernández MD [address] [address] Railroad Passenger Agent: Tim Vizcarra MD [age] [facility] Comment on above: Performed By: #### T SH, FT4, FT3 #### [facility] [address] [place] [phone] Railroad Passenger Agent: Thor Hernández MD #### AAFPM #### [facility] [address] [place] [address] Railroad Passenger Agent: Thor Hernández MD [address] [phone] Railroad Passenger Agent: Tim Vizcarra MD Maternal Race Nonblack [facility] Comment on above: Performed By: #### T SH, FT4, FT3 #### [facility] [address] [place] [address] Railroad Passenger Agent: Thor Hernández MD #### AADIANEM #### [facility] [address] [place] [address] Railroad Passenger Agent: Thor Hernández MD [address] [phone] Railroad Passenger Agent: Tim Vizcarra MD Maternal Weight 239.0 lbs. [facility] Comment on above: Performed By: #### T SH, FT4, FT3 #### [facility] [address] [place] [phone] Railroad Passenger Agent: Thor Hernández MD #### AAFPM #### [facility] [address] [place] [phone] Railroad Passenger Agent: Thor Hernández MD [facility] [address] [place] [address] Railroad Passenger Agent: Tim Vizcarra MD MoM for AFP 1.71 Normal [facility] Comment on above: Performed By: #### T SH, FT4, FT3 #### [facility] [address] [place] [address] [address] Passenger Agent: Thor Hernández MD #### AAFPM #### [facility] [address] [place] [address] Railroad Passenger Agent: Thor Hernández MD Formerly [facility], [facility]–1983 [address] [place] [address] Railroad Passenger Agent: Tim Vizcarra MD Number of Fetuses Twins Normal [facility] Comment on above: Performed By: #### T SH, FT4, FT3 #### [address] [address] Railroad Passenger Agent: Thor Hernández MD #### AAFPM #### [address] [address] Railroad Passenger Agent: Thor Hernández MD [address] [phone] Railroad Passenger Agent: Tim Vizcarra MD Patient's AFP 46 ng/mL Normal [facility] Comment on above: Performed By: #### T SH, FT4, FT3 #### [facility] [address] [place] [address] Railroad Passenger Agent: Thor Hernández MD #### AAFPM #### [facility] [address] [place] [address] Railroad Passenger Agent: Thor Hernández MD [facility], [facility] [address], [place] [phone] Railroad Passenger Agent: Tim Vizcarra MD Smoking Unknown Normal [facility] Comment on above: Performed By: #### T SH, FT4, FT3 #### [facility] [address] [place] [address] Railroad Passenger Agent: Thor Hernández MD #### AAFPM #### [address] [address] Railroad Passenger Agent: Thor Hernández MD [address] [phone] Railroad Passenger Agent: iTm Vizcarra MD Specimen See Note [facility] Comment on above: Result Comment: (NOT E) Initial sample Performed By: [facility] [address] [facility] [place] [address] Nail Machine Operator: Morro Modi MD, PhD CLIA Number: [id number] Performed By: #### T SH, FT4, FT3 #### [address] [address] Railroad Passenger Agent: Thor Hernández MD #### AAFPM #### [address] [address] Railroad Passenger Agent: Thor Hernández MD [address] [phone] Railroad Passenger Agent: Tim Vizcarra MD [facility] 07-27-2023 Current Smoking INFORMATION NOT PROVIDED [facility] Comment on above: Performed By: #### T SH, FT4, FT3 #### [address] [address] Railroad Passenger Agent: Thor Hernández MD #### AAFPM #### [address] [address] Railroad Passenger Agent: Thor Hernández MD [address] [address] Railroad Passenger Agent: Tim Vizcarra MD [facility] Comment on above: Performed By: #### T SH, FT4, FT3 #### [facility] [address] [address] Railroad Passenger Agent: Thor Hernández MD #### AAFPM #### [facility] [address] [place] [address] Railroad Passenger Agent: Thor Hernández MD [address] [address] Railroad Passenger Agent: Tim Vizcarra MD Diabetic Negative [facility] Comment on above: Performed By: #### T SH, FT4, FT3 #### [facility] [address] [place] [address] Railroad Passenger Agent: Thor Hernández MD #### AAFPM #### [address] [address] Railroad Passenger Agent: Thor Hernández MD [address] [phone] Railroad Passenger Agent: Tim Vizcarra MD Donor Egg INFORMATION NOT PROVIDED [facility] Comment on above: Performed By: #### T SH, FT4, FT3 #### [facility] [address] [place] [address] Railroad Passenger Agent: Thor Hernández MD #### AAFPM #### [address] [address] Railroad Passenger Agent: Thor Hernández MD [address] [phone] Railroad Passenger Agent: Tim Vizcarra MD Estimated Due Date 01/06/2024 [facility] Comment on above: Performed By: #### T SH, FT4, FT3 #### [facility] [address] [place] [address] Railroad Passenger Agent: Thor Hernández MD #### AAFPM #### [facility] [address] [address] Railroad Passenger Agent: Thor Hernández MD [address] [address] Railroad Passenger Agent: Tim Vizcarra MD Family History Negative [facility] Comment on above: Performed By: #### T SH, FT4, FT3 #### [facility] [address] [place] [address] Railroad Passenger Agent: Thor Hernández MD #### AAFPM #### [address] [address] Railroad Passenger Agent: Thor Hernández MD [facility] [address] [place] [address] Railroad Passenger Agent: Tim Vizcarra MD In Vitro Fertalizat INFORMATION NOT PROVIDED [facility] Comment on above: Performed By: #### T SH, FT4, FT3 #### [facility] [address] [place] [address] Railroad Passenger Agent: Thor Hernández MD #### AAFPM #### [facility] [address] [address] Railroad Passenger Agent: Thor Hernández MD [address] [address] Railroad Passenger Agent: Tim Vizcarra MD LMP date 2023 [facility] Comment on above: Performed By: #### T SH, FT4, FT3 #### [facility] [address] [place] [address] Railroad Passenger Agent: Thor Hernández MD #### AAFPM #### [facility] [address] [place] [address] Railroad Passenger Agent: Thor Hernández MD [facility], [facility] [address], [place] [phone] Railroad Passenger Agent: Tim Vizcarra MD Maternal date 1990 [facility] Comment on above: Performed By: #### T SH, FT4, FT3 #### [facility] [address] [place] [address] Railroad Passenger Agent: Thor Hernández MD #### AAFPM #### [facility] [address] [place] [address] Railroad Passenger Agent: Thor Hernández MD [facility] [address] [place] [address] Railroad Passenger Agent: Tim Vizcarra MD Maternal Weight 239 Normal [facility] Comment on above: Performed By: #### T SH, FT4, FT3 #### [facility] [address] [place] [address] Railroad Passenger Agent: Thor Hernández MD #### AAFPM #### [address] [address] Railroad Passenger Agent: Thor Hernández MD [address] [phone] Railroad Passenger Agent: Tim Vizcarra MD Monochorionic Twins Positive Normal [facility] Comment on above: Performed By: #### T SH, FT4, FT3 #### [facility] [address] [place] [address] Railroad Passenger Agent: Thor Hernández MD #### AAFPM #### [facility] [address] [place] [address] Railroad Passenger Agent: Thor Hernández MD [facility] [address] [place] [address] Railroad Passenger Agent: Tim Vizcarra MD Patient Weight Units LBS Normal [facility] Comment on above: Performed By: #### T SH, FT4, FT3 #### [facility] [address] [place] [address] Railroad Passenger Agent: Thor Hernández MD #### AAFPM #### [facility] [address] [place] [address] Railroad Passenger Agent: Thor Hernández MD [facility], [facility] [address] [place] [address] Railroad Passenger Agent: Tim Vizcarra MD Race (Maternal) Normal [facility] Comment on above: Performed By: #### T SH, FT4, FT3 #### [address] [address] Railroad Passenger Agent: Thor Hernández MD #### AAFPM #### [address] [address] Railroad Passenger Agent: Thor Hernández MD [address] [address] Railroad Passenger Agent: Tim Vizcarra MD Repeat Specimen INFORMATION NOT PROVIDED [facility] Comment on above: Performed By: #### T SH, FT4, FT3 #### [address] [address] Railroad Passenger Agent: Thor Hernández MD #### AAFPM #### [address] [address] Railroad Passenger Agent: Thor Hernández MD [address] [phone] Railroad Passenger Agent: Tim Vizcarra MD Valproic/Carbamazep INFORMATION NOT PROVIDED [facility] Comment on above: Performed By: #### T SH, FT4, FT3 #### [address] [address] Railroad Passenger Agent: Thor Hernández MD #### AAFPM #### [address] [address] Railroad Passenger Agent: Thor Hernández MD [address] [address] Railroad Passenger Agent: Tim Vizcarra MD Thyroxine, Freeon 07-27-2023 Thyroxine, Free 1.0 ng/dL Normal 0.92-1.68 [facility] Comment on above: Performed By: #### T SH, FT4, FT3 #### [address] [address] Railroad Passenger Agent: Thor Hernández MD #### AAFPM #### [address] [address] Railroad Passenger Agent: Thor Hernández MD [address] [phone] Railroad Passenger Agent: Tim Vizcarra MD Protein,Tot,[place] [employer] 2023 Creatinine [Mass/Vol] 273.0 mg/dL High 28.0-217.0 [facility] Comment on above: Performed By: #### U RTPRT #### [address] [address] Railroad Passenger Agent: Thor Hernández MD Tot Prot. Conc. 21 mg/dL Normal [facility] Comment on above: Result Comment: No n ormal range established. Performed By: #### U RTPRT #### [address] [address] Railroad Passenger Agent: Thor Hernández MD TP/Cre Ratio 0.08 Normal [facility] Comment on above: Performed By: #### U RTPRT #### [address] [address] Railroad Passenger Agent: Thor Hernández MD T3, Freeon 9 Free T3 [Mass/Vol] 3.40 pg/mL Normal 2.00-4.40 [facility] Comment on above: Performed By: #### T SH, FT4, FT3 #### [address] [address] Railroad Passenger Agent: Thor Hernández MD #### AAFPM #### [address] [address] Railroad Passenger Agent: Thor Hernández MD [employer] [address] [place] [address] Railroad Passenger Agent: Tim Vizcarra MD Thyroid Stim. Horm.on 2023 Thyroid Stim. Horm. <0.01 Low 0.27-4.20 [facility] Comment on above: Performed By: #### T SH, FT4, FT3 #### [facility] [place], [place] [phone] Railroad Passenger Agent: Thor Hernández MD #### AAFPM #### [facility] [address] [place] [address] [phone] Railroad Passenger Agent: Thor Hernández MD [facility] [employer] [address] [place] [address] Railroad Passenger Agent: Tim Vizcarra MD ED Note-Physicianon 05-14-19 ED Note-Physician Basic [...] see dentistry until she is cleared by [facility]. She does not have an appointment for [facility] to next week. She has no OB [...] day(s), # 15 tab(s), Refills(s) 0, Pharmacy: [facility], 160, cm, 05/13/23 11:33:00 EST, Height/Length [...] Oral, q6hr Follow-up With When Contact Information [facility] In 3 days 05/16/2023 EDT [address] [place] [address] Business (1) Additional Instructions: Dentistry follow-up Patient [...] made to ensure accuracy, however, inadvertently computerized dynamite shooter mistakes may be present. Appropriate healthcare PPE was used in evaluating this patient. Problem List/Past Medical History Ongoing Acute hepatitis C Anxiety Apnea, sleep Dental caries PCOS (polycystic ovarian syndrome) Historical No qualifying data Procedure/Surgical History Delivery. Medications Inpatient ampicillin-sulbacta m additive + Sodium Chloride 0.9% intravenous solution 100 (more content not included)... [facility] Comment on above: Result Comment: Elec tronically Signed By: Greg Stratton PA-C\.br\Date and Time Signed: 05/13/23 12:45 EST\.br\Electronically Co-Signed By: Jonathan Martinez DO\.br\Date and Time Co-Signed: 05/14/23 07:40 EST Consent for Treatmenton Consent for Treatment [id number] #1.00TIFF [facility] Discharge Instructionson Discharge Instructions [id number] 53#1.00TIFF [facility] ED Clinical Summaryon 2023 ED Clinical Summary [place] [id number] ED Clinical Summary Person Information Name: TIA MONROE [facility] Age: 33 Years : 1990 Sex: Female Language: Thai PCP: Linda Sheppard DO Marital Status: Visit [...] 13:02:19 05/13/2023 13:02:19 05/13/2023 13:02:19 ADDRESS: [address] [facility] [id number] PHYS DOC NOTES: MEDICAL INFORMATION: Prescriptions Given: New Medications [facility], [address], [place] [id number], [phone] oxycodone (oxyCODONE 5 mg Tab) 1 Tablets [...] Dental Abscess Follow up: With: Address: When: [address] [address] Business (1) In 3 days 05/16/2023 Comments: Dentistry follow-up DIAGNOSIS: Dental abscess [facility] ED Patient Education Noteon 05-13-2023 ED [...] these instructions at home: Medicines ? Take vxfn-pyz-mmrvwam and prescription medicines only as told by [...] mouth. ? (more content not included)... [facility] ED Patient Summaryon 024 ED Patient Summary [address] [address] Patient Discharge Instructions Person Information Name: TIA MONROE Age: 33 Years Arrival Date: 05/13/2023 11:19:01 Discharge Diagnosis: Dental abscess Primary Care Physician: Linda Sheppard DO Provider Information Primary Provider: Jonathan Martinez DO Advanced Care Trainer:Greg Stratton PA-C The exam and treatment you received in the Emergency Department were for an urgent problem and are not intended as complete care. It is important that you follow up with a doctor, nurse practitioner, or physician?s occupational therapy assistant for ongoing care. If your symptoms become worse or you do not improve as expected and you are unable to reach your usual health care provider, you should return to the Emergency Department. We are available 24 hours a day. TIA MONROE has been given the following list of patient education materials, prescriptions and follow-up instructions: Follow-up Instructions: With: Address: When: [facility] [address] [address] Business (1) In 3 days 05/16/2023 Comments: Dentistry follow-up In the event that this physician does not participate in your insurance network, please consult with your insurance company to find a nearby participating provider. Patient Education Materials: Dental Abscess A MESSAGE TO ALL PATIENTS REGARDING OPIOIDS PRESCRIPTION OPIOIDS: WHAT YOU NEED TO KNOW Prescription opioids can be used to help relieve wqgnlfku-kw-cizqqd pain and are often prescribed following a [...] struggling with addiction, tell your health career services representative and ask for guidance or call [facility] National Helpline at 8-132-8 (more content not included)... [facility] Discharge Instructionson Discharge Instructions [id number] 819#1.00TIFF [facility] ED Clinical Summaryon 2023 ED Clinical Summary [place] [id number] ED Clinical Summary Person Information Name: TIA MONROE [facility] Age: 33 Years : 1990 Sex: Female Language: Thai PCP: Linda Sheppard DO Marital Status: Visit [...] 23:59:00 05/11/2023 23:59:00 05/11/2023 23:59:00 ADDRESS: [address] [facility] [id number] PHYS DOC NOTES: MEDICAL INFORMATION: Prescriptions Given: New Medications [facility], [address], [place] [id number], [phone] amoxicillin-clavula cindi (Augmentin 875 mg oral tablet) [...] Medication PATIENT EDUCATION INFORMATION: Instructions: Dental Pain, Ebqv-vb-Auuu Follow up: With: Address: When: Linda Sheppard DO, Amelie C, [address] [place] [address] In 3 days 05/14/2023 DIAGNOSIS: 1:Pain, dental; 2:Infected dental caries; 3:First trimester ; Periapical abscess without sinus [facility] ED Note-Physicianon 05-12-19 ED Note-Physician Basic Information Time Seen: Selena HALL Violet E. 05/11/2023 22:59 Chief Complaint pt arrives for c/o dental pain on the right upper side. states cannot see her denitist d/t being . pt states seen in [place] [facility] and started on amoxcillin. History of Present Illness Patient is a 7-week 33-year-old female with history of PCOS that presents to the ED with her for evaluation of dental pain. Patient says pain started on Tuesday. She localizes it to the right upper jaw, radiates into her face ear and cheek. She went to [facility] yesterday and was initiated on amoxicillin [...] day(s), # 14 tab(s), Refills(s) 0, Pharmacy: [facility], 160, cm, 05/11/23 21:53:00 EST, Height/Length Dosing, 110, kg, 05/11/23 21:53:00 EST, Weight Dosing chlorhexidine topical, 0.018 gm, 15 mL, Oral, BID, 480 mL, Refill(s) 0, (swish and spit; do not swallow), [employer] [employer] [facility], 160, cm, 05/11/23 21:53:00 EST, Height/Length Dosing, 110, kg, 05/11/23 21:53:00 EST, Weight Dosing (more content not included)... [facility] Comment on above: Result Comment: Elec [...] these instructions at home: Medicines ? Take orim-ucd-oxvjvjr and prescription medicines only as told by [...] to the area. Brushing your teeth ? Drake your teeth twice a day using a [...] when you eat or drink. ? Take acxt-hcw-rmhsdcm and prescription medicines only as told by [...] Reviewed: 11/26/2020 Elsevier Patient Education ? 2022 [place]. [facility] ED Patient Summaryon 024 ED Patient Summary [address] [address] Patient Discharge Instructions Person Information Name: TIA MONROE Age: 33 Years Arrival Date: 05/11/2023 21:25:54 Discharge Diagnosis: 1:Pain, dental; 2:Infected dental caries; 3:First trimester ; Periapical abscess without sinus Primary Care Physician: Linda Sheppard DO Provider Information Primary Provider: Zac Fields M.D. Advanced Care Trainer:Violet Walters PA-C The exam and treatment you received in the Emergency Department were for an urgent problem and are not intended as complete care. It is important that you follow up with a doctor, nurse practitioner, or physician?s occupational therapy assistant for ongoing care. If your symptoms [...] Instructions: With: Address: When: Linda Sheppard DO [address] [place] [address], [facility] C, [facility] [address] [place], [place] [id number] In 3 days 05/14/2023 In the event that this physician does not participate in your insurance network, please consult with your insurance company to find a nearby participating provider. Patient Education Materials: Dental Pain, Mwsp-hj-Iwbb A MESSAGE TO ALL PATIENTS REGARDING OPIOIDS PRESCRIPTION OPIOIDS: WHAT YOU NEED TO KNOW Prescription opioids can be used to help relieve mnlaexmu-ce-evesjp pain and are often prescribed following a [...] struggling with addiction, tell your health career services representative an (more content not included)... [facility] Consent for Treatmenton 03-0 Consent for Treatment [id number] 96#1.00TIFF [facility] Progesteroneon 12-28-2022 Progesterone 12.60 ng/mL Normal [facility] Comment on above: Result Comment: Female: Follicular phase <0.19 ng/mL Ovulation phase 0.06-4.14 ng/mL Luteal phase 4.11-14.5 ng/mL Postmenopausal <0.13 ng/mL Performed By: #### P NICKY #### [facility] [address] [place] [address] Railroad Passenger Agent: Thor Hernández MD Progesteroneon 11-24-2022 Progesterone 7.18 ng/mL High 0.0-0.15 [facility] Comment on above: Result Comment: Female: Follicular phase <0.19 ng/mL Ovulation phase 0.06-4.14 ng/mL Luteal phase 4.11-14.5 ng/mL Postmenopausal <0.13 ng/mL Performed By: #### P NICKY #### [employer] [facility] [address] [place] [address] [phone] Railroad Passenger Agent: Thor Hernández MD , Urineon HCG ( test) Ql (U) Negative NEGATIVE [facility] XR ANKLE RIGHT (MIN 3 VIEWS) on 09-04-2022 FINDINGS/IMPRESSION : No acute displaced fracture identified. Ankle mortise is symmetric. There is a 1 mm tiny calcified body which is remote appearing near the distal fibular tip. Minimal ankle soft tissue edema. [facility] EXAM: XR ANKLE RIGHT (MIN 3 VIEWS) INDICATION: Reason for exam:->swelling COMPARISON: None. TECHNIQUE: Radiographs as described above [facility] Bettye Johnson MD - 09/04/2022 EXAM: XR ANKLE RIGHT (MIN 3 VIEWS) INDICATION: Reason for exam:->swelling COMPARISON: None. TECHNIQUE: Radiographs as described above IMPRESSION: FINDINGS/IMPRESSION : No acute displaced fracture identified. Ankle mortise is symmetric. There is a 1 mm tiny calcified body which is remote appearing near the distal fibular tip. Minimal ankle soft tissue edema. [facility] Radiology Study observation (narrative) [facility] XR ANKLE RIGHT (MIN 3 VIEWS) Ordered By: Bettye Johnson on 09-04-2022 [facility] Work Phone: Coding Summary.on 07-09-2022 Coding Summary. CD:[id number] bWw+PGhlYWQ+RJ4CDIB pT89gfYJaoT7xQ8GTRM lOSywgQVBQTElOSyIgb cLqQQ4ycWEzJXPv IC8+BN7xEHZeWeqmuPA pl1N2hYP6O90yyd0dRU hoyTY0GLZhFiIzpnmay 2lpmHj2CEttSkvqFqDm AXDlfD22BGH3pX41Ro3 8uCWfoATcw8ffwYw9Iy QbTPHeZLU9qMlvMKenq 7FzNOArC00qpOKuk1B4 IGNvbGxhcHNlOyBlbXB 6iK7xALxrseeeo2lyrv olJbt5kn09vULgo4B8p YZ7K9YvbjI6ITBreDBz UctrxOYDxJ2wwuoxa9v ryisiNcLkSVIoWVe5IM k6YOSveJqeZlLlMB66U QB2WDIiswYuK9QhROQi eIakDkS1c1W9Jp9DM4F RYkjnO5JXQNJNQYddyZ Q+KH92fv33L6PkLdwwR ib2QBLyMMM5dFK0sE6n CSDfQKsgr6C9cWC1S0L ybsSwfd0hr0cgOLOpME aqY73dlCTov7R5YTNxi IN0RAIazDvdMnWhoM27 Oyc+XBLxdUweo0JlCnk qs4idt4sasDm3QpdrON CemgVowNjyTCX7a3GrE a8bPVZlcOJ8yLX1jJ6i BoBqOcD4ZVjaH751TtC ypPSzTnxfM33mP2LjiD A+KYRwMez0OQRruMsaQ Y1fM5DfJFWflqgijWKi mGtuIS2rSTOcjichRCS rlL9lDVGxZ7m7HmXjRm E4ONngT1LwBGAupsfwL v32vA2mEtUkXyS4UCvp K8CgxeS3RVUctRXzWVp oJMA6W40tv2G9UKJaBS FkRBD9gQD5oA7wmRhjw jogbGVmdDsgdmVydGlj ZPitZPkjY578BIVvuMw nPkNvZGluZyBEYXRlOi AgMDUvMDUvMjAyMzwvd GQ+FMBdLKT3nSrxYMLe cHQmJVmnRd9zxAmteKh hNP9jAMRebjrtWVQnwL 5fRVRpeXNivRwrNM6nK DIfaizin990BqKwTPZ7 TWXyuMQiC4ClmH5hTaL nFOIpTOIeG9QgeBWlJF hmF022LMzuBmG4XYGzb bZsB6BvUGCvvKkjWqJ2 m9I3Rk1Wp6LstjrlU5D qyLGvRlYgGfadDJu4F6 RkPjwvdHI+FZ42QOOtC E92DXb1CWN1aVrkWFrx BVAjQ2UnkY8rNjCsHZV kZGRkOyc+PHRhYmxlIH dpZHRoPScxMDAlJyBzd DfdCM9gEh1xBBCrTDRd vJrloPPcYnOgv0diPUX aUUrwDW5mtVfoD2LhiB T7XDNaa0t5Ix96I92zS 3JvdXA+RDHghDL5xNY3 mF9nGtDyDsK4POkrS94 1ZjUwnJEqRlvow4poe1 leaCp4MeP0XLPkwrShv XwmHZG2b9SrXu51N73z IHdpZHRoPSIxNSUiIHZ hcEgoyj6tzX4pDk0+PG ZidJU8iLX9bX8oYbGzX aV2ZWuaU820ApIbnRZf Bctee1vqk0xvsGu6PmU fOLXncvCkvKwjDND0s7 KeFy53N6SmyLlno9XjP te8xn10sWFsp2Y0iEG2 Z4XwEJLfevawcLSyaNy gIA0wFQNydndzJIQqrN 1xGEWlQ3u2FpCvCfY2D EivY7SzkbG1KDEvwNSm PJUwqLXAgU2jqcxns2b sotnsSjNpPBFqTQz3RR b3OZFlgWguGcClNFC9C dZ3FVI7tXArwA5bdXlc nfljfM3iAbq+JKI3xKD wqPTKKU9nOsklkTU+PH GzGLE5hWtyWAqrEVCnj R3uLYYqN5p4FnHcXbE6 RRtdD9PxubY1WHUupKP xVWDqpTNTlQ8ifqaza2 ltvnfyPuEnRTRdMYp7D Rq2UNIuqRutHgSqDYY4 DtL5GNN7rVKxwP1glEz zwvoxtY3nThc+QmlydG nxDDI5THx9U6BsEnb2M UZerEsfWT2jePCuOZlr Ez2tjIdwvYsrIM2eIEF btsjoj440SwUkm7jqQU UhpTClJQreLHP8G29hk 0Z2RCAjHMKcPFA7tMZ8 hN2dmDjzgthvlRMxtSc gdmVydGljYWwtYWxpZ2 78UYIocHgzGaLwFEa0W 6VrMnp6DQWdjSlwZB2o zPJoHVbxEb0eyKeroBq qMW0fEKLkumaow067Oa Suk7nfHGBvnFXkSQjbI XQ9R79zl6X2UCJqJSEa JIT7sVE3zQ4ciZcwnke gbGVmdDsgdmVydGljYW pzZVrfS828IWLjjAleP mIffVr8B3GzPir2PARm dRtsUI8leTQjEGeoRl6 egIubnMepLL9rMLHfdh zip221WvUtg6glFSYnv GDoGMszRMV8Q40tn4O3 FZNsDGHlZGY1rUK3sP6 hbGlnbjogbGVmdDsgdm UhmQpjFDluTIjsC511C HRvcDsnPlBhdGllbnQg RXreJUt1S2VnDixmvRE +HK19HFFaQN85qATmsQ Dkb6rkyAj3ZtJmMCQaS JZ0kDrxIOsvd1RgFPJw Q31rkPNzm0E1GGHstTm mgJQwMfTzwYG4qX6dUZ cmvmjrh8jgnbymEvhfj 9lbkz94zH78R95vFBke ZHRoPSIzMCUiIHZhbGl bhx3qgY3sJu1+PGNvbC B3qGQ9dB3rWCJiLfZ3T FwxM225JmEseJDfWteq x9skg9kruFh4ShY2RFU nfyCawHbpUKW0n6HvUj 59E44rJLbsSVGxQCXsG NGnBMNorQzrjz6jkJ5l Ii8+FLEozGW0vCH7gI4 bSaZfUpJ2YDbmO248Sg GukNIkIaogD26hX1Rcj XA+VBKmCde9OSPluJeg QJ9syQUsETisFo7jXCR 0YnAdWqIiIExdU1TuIR FfeynzpguzvGW3HKEaV AFdnY59Is0fdWqpIXNm wSDNaL3tmiyjs5ztjfb vPdXrYQKyYKr9OJu7LB XadKjkEaYuQWA8NzC2K ZW2jOGkfN8oeKbxcrfv bJ0lU0AwGDNwizrdPs6 1uS1jJrLyAzK5XNtdAz c+Gp8LQnPSZlnbZvDXH kRJRTwvdGQ+PHRkIHN0 nYuqZLmlTBSitP3tUZT rY6n4FwFyUsU8CNcyR7 MxCHIuxvepDr89rM0iD ePgSpN6IUblA9CndoR9 XIRwyOYcQCpwGAV3H82 rx5Q0VPSqDSXeITR4jU L1iC7suRggufmtiTCzw DsgdmVydGljYWwtYWxp M836PYXgcChiVeYnHoB 6VqP6YOA0C4PlPls7SA PthTsvEV0ckTCaNAwbY s3onDjklXpuGP4uALJs skdtRYWrqJ3oIFKxbWC zhKzrHZ8mWBDbfmdfw8 78NjHjESO6MUAcuKTuM 5KzaL9qCxDvBUZpYDBs B9TntXMyXLaoG565UHx pVjV4AHYenhTzW8DaMF BuxWybAiT9l1T3Cf2yK iBZZWFyczwvdGQ+PHRk CID0nPdtGSbdTTRloP3 eECAwT0s1CbPzPkI2TN wlS7CnXZFfmzkeFz00d C8bEmQvNsI5ZUytA5Ee foS1XNSsvYLvBMcwIPW 4B80he2L6ZNXcZPEyED Y5eBT7hT5zzChbfncpc GVmdDsgdmVydGljYWwt AJcjH831BFHuoQoiIbD lbWFsZTwvdGQ+PHRkIH Y6vYcsWVygWHUshJ4qG OBfF2k9JsGiQlW5WOey F8BxAMAmmxboEu84jE4 gHrJdZbR5YVhyF0Vxen C0HWOllBWpEPcoLVL0C 72gm9H8TDJiMYMmIHI3 kWN6dJ3ioPbpjsnbwZJ mdDsgdmVydGljYWwtYW nqN416RDWvoKooIyTtj M8hWEYaVUcjfGWpcWqf dGQ+JI32ju08I6LoLyb uRny7KGMaIMS8hCK2eX 3gFWKhUWqaa8X8iBT1A 3EjsfIizm7lj6kxYVEz CPqwM38xvJJmj6T8YGN smEF0MJEjhXwdUpZlzI 93Oyc+DCOkhPpzc3BcQ fcmh2hyv9fkpVq7McCy MGEvwaPbsUrzXSJ4z5I mMm00F68fMDfkRXIiVM XeTYWcMOSlfFeuzm8sa G9wIi8+COTmhNC1jUD5 tH7xUwVsFsW9HIlfA97 9DcSjjMStMkvos5iuv4 ckyXi6QfLoSQTbihWwa TpjOZY4i6VmPl99F1Kn aVult3SjXdw0xi92gST fo3L1oES9Z6UrHSMaun kjcMIymHpbTE1aDVBiq xgtORHnoU6iVCYcP8t5 VpTeRhW6OWmcI9YhndW 6IGJvbGQgMTBwdCBUaW 4hglols8rucbizNfHaG YNxXHo2WBk3FPIcuWrc PmKeOSE6AuI7YDW2hPF rnW2npBsvzxzwjY5uQw c+PIw3f2cnoSSaIS1oi RF8GV11DJ69hNDkq3V7 qHX0C8RtIZKeqgtpigh nwMM9YOIiQSWdcE28Pq 1feNnoRs1cOWHdXCG5F QFqiHZfA9KkaM6wTnMn HICpQLHnH8QfsMGzSCm oG023JJbbGhY6HZVldx XcQ2LyISHrcJidVuZ5x 1T5Ws6YIH73WF17EU89 qOJnx3C8oNR6W9GyWGQ pphxrgukhrZJ1LRKdYP FksZ03Ix5wxZkpRv7eK JWbGJJ6XDHgxPQrO3Zv oJ0qAnYuLOJpIHSwH8C faIEwETypI509WOotWj Q1JULwktQsO2EcITGgv SxpObY1h3Z2Kq1BOw62 KU91JG41mWCem8H6zKA 6U0JoPOFgedfqtvhrvR P0FZJrLPWzrA82Co9wo HbaOy2iWOKwCQU8CBSf qWFgN0TvxS2dVfVjPLC vWQFfX3QbhNMxTHntB6 96EYgaDmS6EROzzgShL 9PuRSRxdNnaIfK8t1X9 Eh3AQZrzhzr0B2RaLxk vdHI+YT44TOSyTI24hD FrbJMaa0jzrUs6UwGjG BZeZJM2jStwEYjlb9Yd RJEjS66q (more content not included)... [facility] Consultation Noteon 07-07-19 Consultation Note Patient: [...] Problems Acute hepatitis C / SNOMED CT 197134388 / Confirmed Anxiety / SNOMED CT 69393111 / Confirmed Apnea, sleep / SNOMED CT 067176973 / Confirmed Dental caries / SNOMED CT 511525958 / Confirmed PCOS (polycystic ovarian syndrome) / SNOMED CT 758538489 / Confirmed Histories Past Medical History: Active Dental caries ([id number]) Family History: No family history items have [...] (JUN 29 09:49) DBP L 57mmHg (JUN 29:49) Weight 115.6 kg (JUN 29:49) BMI 45.04 (JUN 29 09:49) Constitutional: No [...] Patient agrees with plan of care. Normal [facility] Comment on above: Result Comment: Elec tronically Signed By: Bing PEDRAZA, Todd Lilly\.franchesca\Date and Time Signed: 07/06/22 13:28 EDT DHEA SERUMon 07-04-2022 Dehydroepiandrosterone (DHEA) 220 ng/dL Normal 31-701 [facility] Comment on above: Performed By: #### D KAN. ####[facility] [address] [place], [place] [address]TjSelwyn Nito Daniel DHEA-SULFATEon 06-30-2022 DHEA-Sulfate 106.0 ug/dL Normal 84.8-378.0 [facility] [place] Comment on above: Performed By: #### D DEEPTI ####[facility] [address] [address]Dr. Nito Sanchez FSHon 06-30-2022 FSH 6.6 mIU/mL Normal [facility] Comment on above: Result Comment: Adul t Female: Follicular phase 3.5 - 12.5 Ovulation phase 4.7 - 21.5 Luteal phase 1.7 - 7.7 Postmenopausal 25.8 - 134.8 Performed By: #### L [facility] #### [facility] [address] [place] [address] Dr. Nito Sanchez LUTEINIZING HORMONE (LH)on 0 06-30-2022 LH 18.9 mIU/mL Normal [facility] Comment on above: Result Comment: Adul t Female: Follicular phase 2.4 - 12.6 Ovulation phase 14.0 - 95.6 Luteal phase 1.0 - 11.4 Postmenopausal 7.7 - 58.5 Performed By: #### L BCLH #### [facility] [address] [place] [address] Dr. Nito Sanchez PROLACTINon 06-30-2022 Prolactin 5.3 ng/mL Normal 4.8-23.3 [facility] Comment on above: Performed By: #### P ROLAC #### [facility] [address] [place] [address] Dr. Nito Sanchez CBC AUTO DIFFon 06-29-2022 BASO # 0.1 103/ul Normal 0.0-0.1 [facility] Comment on above: Performed By: #### C BC #### [facility] [address] [place] [address] Dr. Nito Sanchez Basophils/100 WBC (Bld) 0.5 % Normal 0.2-2.0 [facility] Comment on above: Performed By: #### C BC #### [facility] [address] [place] [address] Dr. Nito Sanchez EO # 0.2 103/ul Normal 0.0-0.7 [facility] Comment on above: Performed By: #### C BC #### [facility] [address] [place] [address] Dr. Nito Sanchez Eosinophils/100 WBC (Bld) 1.6 % Normal 0.9-7.0 [facility] Comment on above: Performed By: #### C BC #### [facility] [address] [place] [address] Dr. Nito Sanchez Erythrocyte distribution width (RBC) [Ratio] 13.6 % Normal 11.0-15.0 [facility] Comment on above: Performed By: #### C BC #### [facility] [address] [place] [address] Dr. Nito Sanchez Hematocrit (Bld) [Volume fraction] 39.7 % Normal 36.0-48.0 [facility] Comment on above: Performed By: #### C BC #### [facility] [address] [place] [address] Dr. Nito Sanchez Hemoglobin (Bld) [Mass/Vol] 13.1 g/dL Normal 12.0-16.0 [facility] Comment on above: Performed By: #### C BC #### [facility] [address] [place] [address] Dr. Nito Sanchez IG # 0.05 10e3/ul Critically high 0.00-0.03 [facility] Comment on above: Performed By: #### C BC #### [facility] [address] [place] [address] Dr. Nito Sanchez IG % 0.5 % Normal 0.0-0.5 [facility] Comment on above: Performed By: #### C BC #### [facility] [address] [place] [address] Dr. Nito Sanchez LYMPH # 2.6 103/ul Normal 1.2-3.8 [facility] Comment on above: Performed By: #### C BC #### [facility] [address] [place] [address] Dr. Nito Sanchez Lymphocytes/100 WBC (Bld) 25.3 % Normal 20.5-60.0 [facility] Comment on above: Performed By: #### C BC #### [facility] [address] [place] [address] Dr. Nito Sanchez MANUAL DIFF REQ NO Normal [facility] Comment on above: Performed By: #### C BC #### [facility] [address] [place] [address] Dr. Nito Sanchez MCH (RBC) [Entitic mass] 27.1 pg Normal 26.7-34.0 [facility] Comment on above: Performed By: #### C BC #### [facility] [address] [place] [address] Dr. Nito Sanchez MCHC (RBC) [Mass/Vol] 33.0 g/dL Normal 29.9-35.2 [facility] Comment on above: Performed By: #### C BC #### [facility] [address] [place] [address] Dr. Nito Sanchez MCV (RBC) [Entitic vol] 82.2 fL Normal 81.0-99.0 [facility] Comment on above: Performed By: #### C BC #### [facility] [address] [place] [address] Dr. Nito Sanchez MONO # 0.5 103/ul Normal 0.3-0.8 [facility] Comment on above: Performed By: #### C BC #### [facility] [address] [place] [address] Dr. Nito Sanchez Monocytes/100 WBC (Bld) 5.0 % Normal 1.7-12.0 [facility] Comment on above: Performed By: #### C BC #### [facility] [address] [place] [address] Dr. Nito Sanchez NEUT # 6.9 103/ul Critically high 1.4-6.5 [facility] Comment on above: Performed By: #### C BC #### [facility] [address] [place] [address] Dr. Nito Sanchez Neutrophils/100 WBC (Bld) 67.1 % Normal 43.0-75.0 [facility] Comment on above: Performed By: #### C BC #### [facility] [address] [address] [address] Nito Sanchez Platelet mean volume (Bld) [Entitic vol] 10.0 fL Normal 9.5-13.5 [facility] Comment on above: Performed By: #### C BC #### [facility] [address] [address] [address] Nito Sanchez PLT 313 103/ul Normal 150-450 [facility] Comment on above: Performed By: #### C BC #### [facility] [address] [place] [address] Dr. Nito Sanchez RBC 4.83 106/ul Normal 4.20-5.40 [facility] Comment on above: Performed By: #### C BC #### [facility] [address] [place] [address] Dr. Nito Sanchez WBC 10.3 103/ul Normal 4.0-11.0 [facility] Comment on above: Performed By: #### C BC #### [facility] [address] [place] [address] Dr. Nito Sanchez Consent for Treatmenton 06-06 Consent for Treatment [id number] 650#1.00CD:127 Normal [facility] FREE T4on 06-29-2022 Free T4 [Mass/Vol] 1.01 ng/dL Normal 0.76-1.46 [facility] Comment on above: Performed By: #### F T4 #### [facility] [address] [place] [address] Dr. Nito Sanchez GLYCOHEMOGLOBIN A1Con 2022 ADA RECOMMENDATION SEE BELOW Normal [facility] Comment on above: Result Comment: ADA RECOMMENDED LIMIT 4.0 - 6.0 ADA THERAPEUTIC TARGET < 7.0 ACTION SUGGESTED > 7.0 Performed By: #### A 1C #### [facility] [address] [place] [address] Dr. Nito Sanchez Glucose [Mass/Vol] 108 mg/dL Normal [facility] Comment on above: Performed By: #### A 1C #### [facility] [address] [place] [address] Dr. Nito Sanchez HbA1c (Bld) [Mass fraction] 5.4 % Normal 4.5-6.2 [facility] Comment on above: Performed By: #### A 1C #### [facility] [address] [place] [address] Dr. Nito Sanchez HIPAA Forms Officeon 023 HIPAA Forms Office [id number] 602#1.00CD:127 Normal [facility] Legal Correspondence Officeo n 06-29-2022 Legal Correspondence Office [id number] 270#1.00CD:127 Normal [facility] Legal Correspondence Office [id number] 787#1.00CD:127 Normal [facility] Office/Clinic Note-Physician on 06-29-2022 Office/Clinic Note-Physician [id number] 515#1.00CD:127 Normal [facility] Orders Officeon 06-29-2022 Orders Office [id number] 642#1.00CD:127 Normal [facility] PREG QUANT HCGon 06-29-2022 HCG QUANT 1 mIU/mL Normal [facility] Comment on above: Performed By: #### T BERNICE, PREGQNT #### [facility] [address] [place] [address] Dr. Nito Sanchez HCG RANGE SEE BELOW Normal [facility] Comment on above: Result Comment: 5-50 0.2-1 WEEK 50-500 1-2 WEEKS 100-5,000 2-3 WEEKS 500-10,000 3-4 WEEKS 1,000-50,000 4-5 WEEKS 10,000-100,000 5-6 WEEKS 15,000-200,000 6-8 WEEKS 10,000-100,000 2-3 MONTHS Performed By: #### T BERNICE, PREGQNT #### [facility] [address] [place] [address] Dr. Nito Sanchez Patient Correspondenceon Patient Correspondence [id number] 946#1.00CD:127 Normal [facility] Patient Correspondence [id number] 137#1.00CD:127 Normal [facility] Patient Correspondence [id number] 273#1.00CD:127 Normal [facility] Patient Correspondence [id number] 879#1.00CD:127 Normal [facility] Patient Correspondence [id number] 956#1.00CD:127 Normal [facility] Patient History Officeon Patient History Office [id number] 983#1.00CD:127 Normal [facility] Patient History Office [id number] 721#1.00CD:127 Normal [facility] Radiology Outside Office Transverse Abdominal Muscle Nurse yon 06-29-2022 Radiology Outside Office Copy [id number] 142#1.00CD:127 Normal [facility] TSHon 06-29-2022 TSH 0.848 uIU/mL Normal 0.358-3.740 [facility] Comment on above: Performed By: #### T , PREGQNT #### [facility] [address] [address] [address] Nito Sanchez US PELVIS AND TRANSVAGon [...] by: BETTYE DANIELS Date: 2022-06-29 15:17 Normal [facility] PAP ACOG PANEL 2: 30 to 65on 06-19-2022 . . Normal [facility] Comment on above: Result Comment: Perf ormed at: WB Performed By: #### 4 [id number] #### [facility] [address] [address] [address] Nito Sanchez Age Gdln ACOG Testing 30-65 Normal [facility] Comment on above: Performed By: #### 4 [id number] #### [facility] [address] [address] [address] Nito Sanchez DIAGNOSIS: Comment Normal [facility] Comment on above: Result Comment: NEGA TIVE FOR INTRAEPITHELIAL LESION OR MALIGNANCY. Performed at: WB Performed By: #### 4 [id number] #### [facility] [address] [address] [address] Nito Sanchez HPV Aptima Negative Normal Negative [facility] Comment on above: Result Comment: This nucleic acid amplification test detects fourteen high-risk HPV types (16,18,31,33,35,39,45,51,52,56,58,59,66,68) without differentiation. Performed at: =G Performed By: #### 4 [id number] #### [facility] [address] [address] [address] Nito Sanchez HPV Genotype Reflex Comment Normal [facility] Comment on above: Result Comment: Crit eria not met, HPV Genotype not performed. Performed at: WB Performed By: #### 4 [id number] #### [facility] [address] [address] [address] Nito Sanchez Methodology: Comment Normal [facility] Comment on above: Result Comment: This liquid based ThinPrep(R) pap test was screened with the use of an image guided system. Performed at: WB Performed By: #### 4 [id number] #### [facility] [address] [address] [address] Nito Sanchez Note: Comment Normal [facility] Comment on above: Result Comment: The Pap smear is a screening test designed to aid in the detection of premalignant and malignant conditions of the uterine cervix. It is not a diagnostic procedure and should not be used as the sole means of detecting cervical cancer. Both false-positive and false-negative reports do occur. . Performed at: WB Performed By: #### 4 [id number] #### [facility] [address] [address] [address] Nito Sanchez Performed by: Comment Normal [facility] [place] Comment on above: Result Comment: Nanda Treadwell, Human Resources Manager (ASCP) Performed at: WB Performed By: #### 4 [id number] #### [facility] [address] [address] [address] Nito Sanchez Specimen adequacy: Comment Normal [facility] Comment on above: Result Comment: Sati sfactory for evaluation. Endocervical and/or squamous metaplastic cells (endocervical component) are present. Performed at: WB Performed By: #### 4 [id number] #### [facility] [address] [address] [address] MAXILLOFACIAL WO CONTRAST on 05-11-2022 Recent extraction of the right mandibular and maxillary second molar teeth with presence of air in the respective tooth sockets. No evidence of edema in the sublingual space or the buccal space Probable periapical abscess involving the right maxillary premolar tooth adjacent to the first molar tooth. RUST RIS CONSOLIDATED EXAM: CT MAXILLOFACIAL WO CONTRAST [...] visualized intracranial contents show no acute process. RUST Phil Romero MD - 05/11/2022 EXAM: CT [...] tooth adjacent to the first molar tooth. [email or web address] Work Phone: Radiology Study observation (narrative) [employer] Work Phone: CT MAXILLOFACIAL WO CONTRAST Ordered By: Phil Mary on 05-11-2022 [email or web address] Work Phone: Urine Preg (Lab)on 3 Beta HCG ( test) Ql (U) Negative NEGATIVE [employer] HCG, Quantitative, on 03-29-2022 hCG Quant NINF [email or web address] Comment on above: Non-preg premeno <=5 Postmeno <=8 Male <=3 If HCG results do not concur with clinical observations, additional testing to confirm results is recommended. [facility] COVID-19, Rapidon 07-22-2021 SARS-CoV-2 (COVID-19) RNA KALPESH+probe Ql (Unsp spec) Not detected Not Detected [facility] Comment on above: Rapid NAAT: The specimen [...] management decisions. Fact sheet for Healthcare Providers: https://www.fda.gov/media/445886/download Fact sheet for Patients: https://www.fda.gov/media/405286/download Methodology: Isothermal Nucleic Acid Amplification Specimen Description .NASOPHARYNGEAL SWAB [facility] Strep Screen Group A Throato n 07-22-2021 S. pyogenes Ag Ql (Throat) Negative NEGATIVE [facility] Comment on above: Rapid Strep A negati ve. A negative Rapid Group A Strep Screen result does not rule out the possibility of Group A Streptococci in the specimen. A Group A Strep DNA test is available upon request. Source .THROAT SWAB [facility] MR LUMBAR SPINE WITHOUT CONT [facility] 06-17-2021 MR LUMBAR SPINE WITHOUT [...] foraminal stenosis. 2. No fracture or spondylolisthesis. [facility] Workstation ID: [id number] Dictated by: JONATHAN LINARES on TueJun 18, 2021 11:51:00 AM EDT Transcribed by: ZULMA CARDENAS on TueJun 18, 2021 11:58:13 AM EDT Finalized by: JONATHAN LINARES on TueJun 18, 2021 12:35:45 PM EDT Normal [facility] Comment on above: Order Comment: Injur y/Trauma or Illness?:Illness/Other How long have you had these symptoms (acute/chronic)?:Chronic Reason for exam?:LBP AND bilat hip pain x years, nki Type of Exam?:Subsequent/Follow-up Additional signs and symptoms?:. CBC panel Auto (Bld)on 04-16 Erythrocyte distribution width (RBC) [Entitic vol] 14.0 % 11.6 - 14.8 % [facility] Hematocrit (Bld) [Volume fraction] 38.6 % 36.0 - 46.0 % [facility] Hemoglobin (Bld) [Mass/Vol] 12.1 g/dL 12.0 - 16.0 g/dL [facility] Interpretation and review of laboratory results Abnormal [facility] MCH (RBC) [Entitic mass] 25.4 pg Low 26. 0 - 34.0 pg [facility] MCHC (RBC) [Mass/Vol] 31.3 g/dL 31.0 - 37.0 g/dL [facility] MCV (RBC) [Entitic vol] 81.1 fL 80.0 - 100.0 fL [facility] Platelet mean volume (Bld) [Entitic vol] 10.0 fL 9.4 - 12.4 fL [facility] Platelets (Bld) [#/Vol] 379 10*3/uL [facility] RBC (Bld) [#/Vol] 4.76 10*6/uL [facility] WBC (Bld) [#/Vol] 9.85 10*3/uL [facility] Comprehensive metabolic 2000 panelon 04-16-2021 Albumin [Mass/Vol] 3.7 g/dL 3.2 - 5.2 g/dL [facility] ALP [Catalytic activity/Vol] 95 U/L 40 - 140 U/L [facility] ALT [Catalytic activity/Vol] 36 U/L 14 - 65 U/L [facility] Anion gap [Moles/Vol] 11 mmol/L 10 - 2 0 mmol/L [facility] AST [Catalytic activity/Vol] 22 U/L 0 - 45 U/L [facility] Bilirubin [Mass/Vol] 0.3 mg/dL 0.0 - 1 .3 mg/dL [facility] Calcium [Mass/Vol] 9.3 mg/dL 8.4 - 10. 2 mg/dL [facility] Chloride [Moles/Vol] 105 mmol/L 98 - 10 8 mmol/L [facility] Creatinine [Mass/Vol] 0.68 mg/dL 0.40 - 1.10 [facility] GFR/1.73 sq M.predicted CKD-EPI (S/P/Bld) [Vol rate/Area] 117 >=60 mL/min/1.73 m2 [facility] Glucose [Mass/Vol] 76 mg/dL 65 - 99 mg/dL [facility] HCO3 [Moles/Vol] 26 mmol/L 21 - 32 mmol/L [facility] Interpretation and review of laboratory results Normal [facility] Potassium [Moles/Vol] 4.2 mmol/L 3.5 - 5.1 mmol/L [facility] Protein [Mass/Vol] 7.5 g/dL 6.0 - 8.0 g/dL [facility] Sodium [Moles/Vol] 138 mmol/L 135 - 145 mmol/L [facility] Urea nitrogen [Mass/Vol] 13 mg/dL 8 - 25 mg/dL [facility] Urea nitrogen/Creatinine [Mass ratio] 19.1 mg/mg [facility] The eGFR should be used for monitoring renal function only and not for medication dosing. [facility] Lipid 1996 panelon 2 Cholesterol [Mass/Vol] 195 mg/dL 100 - 199 mg/dL [facility] Comment on above: National Cholesterol Education Program Guidelines: Cholesterol Desirable: <200 mg/dL Borderline High: 200-239 mg/dL High: greater than or equal to 240 mg/dL Cholesterol in HDL [Mass/Vol] 56 mg/dL 40 - 59 [facility] Comment on above: National Cholesterol Education Program Guidelines: HDL Cholesterol Low: <40 mg/dL Near Optimal: 40-59 mg/dL High: greater than or equal to 60 mg/dL Cholesterol in LDL [Mass/Vol] 109 mg/dL 10 - 130 mg/dL [facility] Comment on above: National Cholesterol Education Program Guidelines: LDL Cholesterol Optimal: <100 mg/dL Near Optimal/above Optimal: 100-129 mg/dL Borderline High: 130-159 mg/dL High: 160-189 mg/dL Very High: greater than or equal to 190 mg/dL Cholesterol non HDL [Mass/Vol] 139 mg/dL [facility] Comment on above: National Cholesterol Education Program Guidelines: NON HDL Cholesterol Desirable: <130 mg/dL Borderline High: 130-159 mg/dL High: 160-189 mg/dL Very High: > or = 190 mg/dL Cholesterol.total/Cholest elton in HDL [Mass ratio] 3.5 {ratio} ratio [facility] Comment on above: Female Cholesterol/H DL Ratio: Average risk: 4.4 1/2 average risk: 3.3 2 x average risk: 7.1 Interpretation and review of laboratory results Abnormal [facility] Triglyceride [Mass/Vol] 151 mg/dL High 30 - 150 mg/dL [facility] Comment on above: National Cholesterol Education Program Guidelines: Triglyceride Normal: <150 mg/dL Borderline High: 150-199 mg/dL High: 200-499 mg/dL Very High: greater than or equal to 500 mg/dL No Panel Informationon 04-16 [facility] TSH DL <= 0.005 mIU/L Qnon 0 04-16-2021 Interpretation and review of laboratory results Normal [facility] TSH Qn 1.04 m[IU]/L [facility] Basic Metabolic Panel w/ Ref ray to MGon 03-23-2021 Anion gap [Moles/Vol] 13 mmol/L 9 - 17 mmol/L [facility] Calcium [Mass/Vol] 8.8 mg/dL 8.6 - 10. 4 mg/dL [facility] Chloride [Moles/Vol] 104 mmol/L 98 - 10 7 mmol/L [facility] CO2 [Moles/Vol] 21 mmol/L 20 - 31 mmol/L [facility] Creatinine [Mass/Vol] 0.65 mg/dL 0.50 - 0.90 mg/dL [facility] GFR >60 >60 mL/min [facility] [facility] GFR Non- >60 >60 mL/min [facility] GFR/1.73 sq M.predicted MDRD (S/P/Bld) [Vol rate/Area] [facility] Comment on above: Average GFR for 30-3 9 years old: 107 mL/min/1.73sq m Chronic Kidney Disease: <60 mL/min/1.73sq m Kidney failure: <15 mL/min/1.73sq m eGFR calculated using average adult body mass. Additional eGFR calculator available at: http://www.[employer]/multiple_crcl_2012.htm GFR/1.73 sq M.predicted MDRD (S/P/Bld) [Vol rate/Area] NOT REPORTED [facility] Glucose [Mass/Vol] 104 mg/dL High 70 - 99 mg/dL [facility] Interpretation and review of laboratory results Abnormal [facility] th Potassium [Moles/Vol] 3.7 mmol/L 3.7 - 5.3 mmol/L [facility] Sodium [Moles/Vol] 138 mmol/L 135 - 144 mmol/L [facility] Urea nitrogen (BldV) [Mass/Vol] 15 mg/dL 6 - 20 mg/dL [facility] Urea nitrogen/Creatinine (Bld) [Mass ratio] 23 High [facility] CBC Auto Differentialon 03-07 Absolute Eos # 0.10 [facility] th Absolute Immature Granulocyte NOT REPORTED [facility] Absolute Lymph # 0.60 Low [facility] alth Absolute [place] [facility].50 [facility] Basophils (Bld) [#/Vol] 0.00 10*3/uL [facility] Basophils/100 WBC (Bld) 0 % 0 - 2 % [facility] Differential Type YES [facility] ealt Eosinophils/100 WBC (Bld) 2 % 0 - 5 % [facility] Hematocrit (Bld) [Volume fraction] 34.6 % Low 36 - 46 % [facility] Hemoglobin.gastrointestin al spec 1 Ql (Stl) 11.7 g/dL Low 12.0 - 16.0 g/dL [facility] Immature Granulocytes NOT REPORTED 0 % [facility] Interpretation and review of laboratory results Abnormal [facility] Lymphocytes/100 WBC (Bld) 13 % Low 15 - 40 % [facility] MCH (RBC) [Entitic mass] 26.4 pg 26 - 34 pg [facility] MCHC (RBC) [Mass/Vol] 33.8 g/dL 31 - 3 7 g/dL [facility] MCV (RBC) [Entitic vol] 78.2 fL Low 80 - 100 fL [facility] Monocytes/100 WBC (Bld) 10 % High 4 - 8 % [facility] NRBC Automated NOT REPORTED per 100 WBC [facility] Platelet distribution width (Bld) [Ratio] 14.4 % 12.1 - 15.2 % [facility] Platelet Estimate NOT REPORTED [facility] Platelet mean volume (Bld) [Entitic vol] NOT REPORTED 6.0 - 12.0 fL [facility] Platelets (Bld) [#/Vol] 259 10*3/uL [facility] RBC (Bld) [#/Vol] 4.43 10*6/uL 4.0 - 5.2 m/uL [facility] RBC (Bld) [#/Vol] NOT REPORTED [facility] Segmented neutrophils/100 WBC (Bld) 75 % 47 - 75 % [facility] Segs [facility]ld[facility] [#/Vol] 4.8 10*3/uL [facility] WBC (Bld) [#/Vol] NOT REPORTED [facility] COVID-19, Rapidon 03-23-2021 Interpretation and review of laboratory results Abnormal [facility] SARS-CoV-2 (COVID-19) RNA KALPESH+probe Ql (Unsp spec) Detected Abnormal Not Detected [facility] Comment on above: Rapid NAAT: The specimen [...] this assay. Fact sheet for Healthcare Providers: https://www.fda.gov/media/740740/download Fact sheet for Patients: https://www.fda.gov/media/358726/download Methodology: Isothermal Nucleic Acid Amplification Results reported to the appropriate Health Department Specimen Description .NASOPHARYNGEAL SWAB [facility] No Panel Informationon 03-23 Direct Exam Negative [facility] Rapid influenza A/B antigens on 03-23-2021 Special Requests NOT REPORTED [facility] Specimen Description .NASOPHARYNGEAL SWAB [facility] COVID-19, RapidOrdered By: Shayy Springer on 12-27-2020 SARS-CoV-2 (COVID-19) RNA KALPESH+probe Ql (Unsp spec) Not detected Not Detected [facility] Work Phone: Comment on above: Rapid NAAT: [...] management decisions. Fact sheet for Healthcare Providers: https://www.fda.gov/media/623471/download Fact sheet for Patients: https://www.fda.gov/media/682194/download Methodology: Isothermal Nucleic Acid Amplification Specimen Description .NASOPHARYNGEAL SWAB [employer] Phone: [employer] Phone: Strep Screen Group A ThroatO rdered By: Wayne Springer on 12-27-2020 S. pyogenes Ag IA Ql (Unsp spec) Rapid Strep A negative. A negative Rapid Group A Strep Screen result does not rule out the possibility of Group A Streptococci in the specimen. A Group A Strep DNA test is available upon request. [employer] Phone: Special Requests NOT REPORTED [employer] Phone: Specimen Description .THROAT [employer] Phone: [employer] Phone: XR SHOULDER RIGHT (MIN 2 VIE WS)Ordered By: Anuj Quinn on 11-20-2020 No acute fracture or traumatic malalignment. [employer] Phone: EXAMINATION: XR SHOULDER RIGHT (MIN 2 VIEWS), , 11/20/2020 9:30 PM EDT INDICATION: Reason for exam:->shoulder pain HISTORY: Ordering Provider Reason for Exam: Technologist Note: Additional: COMPARISON: None. TECHNIQUE: Right shoulder x-ray: 3 view(s). FINDINGS: No acute fracture. Glenohumeral and acromioclavicular joints are anatomically aligned. Joint spaces are preserved. Soft tissues are unremarkable. [employer] Phone: Ward, [facility] Incoming Radiant Results From [employer] - 11/20/2020 9:55 PM EDT EXAMINATION: XR [...] IMPRESSION: No acute fracture or traumatic malalignment. [employer] Work Phone: [employer] Work Phone: COVID-19, MOLECULARon 2020 SARS-CoV-2 (COVID-19) RNA KALPESH+probe Ql (Unsp spec) Not detected Normal Not Detected [facility] Comment on above: Order Comment: : [...] at the following links: For Healthcare Providers: https://www.fda.gov/media/655714/download For Patients: https://www.fda.gov/media/274718/download Performed By: #### L [id number] #### [facility] [address] [place] [address] Joe Rider M.D. [id number] HbA1c (Bld) [Mass fraction]O rdered By: Zelda Bautista on 07-09-2020 Interpretation and review of laboratory results Normal [facility] POC Hemoglobin [id number] By : Zelda Bautista on 07-09-2020 HbA1c (Bld) [Mass fraction] 5.2 % 4.0 - 6.0 % [facility] HbA1c (Bld) [Mass fraction]O rdered By: Lelo Gallegos on 06-09-2020 Interpretation and review of laboratory results Normal [facility] POC Hemoglobin [id number] By : Lelo Gallegos on 06-09-2020 HbA1c (Bld) [Mass fraction] 5.6 % 4.0 - 6.0 % [facility] CBC Auto Differentialon 03-08 Basophils (Bld) [#/Vol] 0.00 10*3/uL [place] Basophils/100 WBC (Bld) 0 % 0 - 2 % [place] Differential Type YES [place] Eosinophils (Bld) [#/Vol] 0.10 10*3/uL [place] Eosinophils/100 WBC (Bld) 1 % 0 - 5 % [place] Erythrocyte distribution width (RBC) [Ratio] 14.2 % 12.1 - 15.2 % [place] Hematocrit (Bld) [Volume fraction] 36.1 % 36 - 46 % [place] Hemoglobin (Bld) [Mass/Vol] 12.5 g/dL 12 - 16 g/dL [place] Interpretation and review of laboratory results Abnormal [place] Lymphocytes (Bld) [#/Vol] 2.00 10*3/uL [place] Lymphocytes/100 WBC (Bld) 14 % Low 15 - 40 % [place] MCH (RBC) [Entitic mass] 30.6 pg 26 - 34 pg [place] MCHC (RBC) [Mass/Vol] 34.5 g/dL 31 - 3 7 g/dL [place] MCV (RBC) [Entitic vol] 88.5 fL 80 - 100 fL [place] Monocytes (Bld) [#/Vol] 0.80 10*3/uL [place] Monocytes/100 WBC (Bld) 6 % 4 - 8 % [place] Platelet mean volume (Bld) [Entitic vol] NOT REPORTED 6 - 12 fL [place] Platelets (Bld) [#/Vol] 300 10*3/uL [place] Platelets (Bld) [#/Vol] NOT REPORTED [place] RBC (Bld) [#/Vol] 4.08 10*6/uL 4 - 5.2 m/uL [place] RBC morphology finding Nom (Bld) NOT REPORTED [place] Segmented neutrophils/100 WBC (Bld) 79 % High 47 - 75 % [place] Segs Absolute 10.70 [place] WBC (Bld) [#/Vol] 13.6 10*3/uL [place] WBC (Bld) [#/Vol] NOT REPORTED per 100 WBC [place] WBC Morphology NOT REPORTED [place] COVID-19, PCRon 03-26-2020 SARS-CoV-2, Rapid Not Detected Not Detected [place] Comment on above: Rapid NAAT: The [...] management decisions. Fact sheet for Healthcare Providers: https://www.fda.gov/media/806199/download Fact sheet for Patients: https://www.fda.gov/media/301501/download Methodology: Isothermal Nucleic Acid Amplification Source .THROAT [place] Comprehensive Metabolic Pane l w/ Reflex to MGon 03-26-2020 Albumin [Mass/Vol] 3.3 g/dL Low 3.5 - 5.2 g/dL [place] Albumin/Globulin [Mass ratio] NOT REPORTED [place] ALP [Catalytic activity/Vol] 57 U/L 35 - 104 U/L [place] ALT [Catalytic activity/Vol] U/L Low 5 - 33 U/L [place] Anion gap [Moles/Vol] 11 mmol/L 9 - 17 mmol/L [place] AST [Catalytic activity/Vol] 9 U/L <32 [place] Bilirubin Ql (U) 0.10 mg/dL Low 0.3 - 1.2 mg/dL [place] Bun/Cre Ratio 21 [place] Calcium [Mass/Vol] 10.2 mg/dL 8.6 - 10. 4 mg/dL [place] Chloride [Moles/Vol] 104 mmol/L 98 - 10 7 mmol/L [place] CO2 [Moles/Vol] 21 mmol/L 20 - 31 mmol/L [place] Creatinine [Mass/Vol] 0.42 mg/dL Low 0.5 - 0.9 mg/dL [place] GFR >60 >60 mL/min [place] GFR Non- >60 >60 mL/min [place] GFR/1.73 sq M predicted among non-blacks MDRD (S/P/Bld) [Vol rate/Area] NOT REPORTED [place] GFR/1.73 sq M predicted among non-blacks MDRD (S/P/Bld) [Vol rate/Area] [place] Comment on above: Average GFR for 30-3 9 years old: 107 mL/min/1.73sq m Chronic Kidney Disease: <60 mL/min/1.73sq m Kidney failure: <15 mL/min/1.73sq m eGFR calculated using average adult body mass. Additional eGFR calculator available at: http://www.[employer]/multiple_crcl_2011.htm Glucose [Mass/Vol] 100 mg/dL High 70 - 99 mg/dL [place] Interpretation and review of laboratory results Abnormal [place] Potassium [Moles/Vol] 3.8 mmol/L 3.7 - 5.3 mmol/L [place] Protein [Mass/Vol] 6.5 g/dL 6.4 - 8.3 g/dL [place] Sodium [Moles/Vol] 136 mmol/L 135 - 144 mmol/L [place] Urea nitrogen [Mass/Vol] 9 mg/dL 6 - 20 mg/dL [place] Otheron 03-26-2020 SARS-CoV-2 [place] Immature granulocytes (Bld) [#/Vol] NOT REPORTED [place] Urinalysis, reflex to micros copicon 03-26-2020 Bilirubin Urine Negative NEGATIVE [facility] [place] Color, UA YELLOW YELLOW [place] Glucose, Ur Negative NEGATIVE [place] Ketones Ql (U) Negative NEGATIVE [place] Leukocyte esterase Test strip Ql (U) Negative NEGATIVE [place] Nitrite, Urine Negative NEGATIVE [place] pH, UA 7.0 [place] Protein (U) [Mass/Vol] Negative NEGATIVE [place] Specific [place], UA 1.010 [place] Turbidity UA CLEAR CLEAR [place] Urinalysis Comments [place] Urine Hgb Negative NEGATIVE [place] Urobilinogen, Urine Normal Normal [place] Wet Prep, Genitalon 11-20-19 Direct Exam MODERATE EPITHELIAL CELLS Abnormal [place] Direct Exam FEW TRICHOMONAS SEEN Abnormal [place] Direct Exam MODERATE BACTERIA Abnormal [place] Direct Exam Few epithelials coated with bacteria resembling clue cells. Abnormal [place] Direct Exam NO FUNGAL ELEMENTS SEEN [place] Interpretation and review of laboratory results Abnormal [place] Special Requests NOT REPORTED [place] Specimen Description .VAGINAL SPECIMEN [place] WBC (Bld) [#/Vol] FEW WBC SEEN Abnormal [place] Basic Metabolic Panelon 06-05 Anion gap [Moles/Vol] 15 mmol/L 10 - 2 0 mmol/L [facility] Calcium [Mass/Vol] 8.6 mg/dL 8.4 - 10. 2 mg/dL [facility] Chloride [Moles/Vol] 102 mmol/L 98 - 10 8 mmol/L [facility] Creatinine [Mass/Vol] 0.36 mg/dL Low 0.40 - 1.10 [facility] GFR/1.73 sq M predicted among non-blacks MDRD (S/P/Bld) [Vol rate/Area] The eGFR should be used for monitoring renal function only and not for medication dosing. [facility] GFR/1.73 sq M.predicted CKD-EPI (S/P/Bld) [Vol rate/Area] 146 >=60 mL/min/1.73 m2 [facility] Glucose [Mass/Vol] 102 mg/dL High 65 - 99 mg/dL [facility] HCO3 [Moles/Vol] 25 mmol/L 21 - 32 mmol/L [facility] Interpretation and review of laboratory results Abnormal [facility] Potassium [Moles/Vol] 4.1 mmol/L 3.5 - 5.1 mmol/L [facility] Sodium [Moles/Vol] 138 mmol/L 135 - 145 mmol/L [facility] Urea nitrogen [Mass/Vol] 5 mg/dL Low 8 - 25 mg/dL [facility] Urea nitrogen/Creatinine [Mass ratio] 13.9 mg/mg [facility] Hepatic Function Panelon Albumin [Mass/Vol] 3.3 g/dL 3.2 - 5.2 g/dL [facility] ALP [Catalytic activity/Vol] 253 U/L High 40 - 140 U/L [facility] ALT [Catalytic activity/Vol] 686 U/L High 0 - 40 U/L [facility] AST [Catalytic activity/Vol] 349 U/L High 0 - 45 U/L [facility] Bilirubin [Mass/Vol] 6.0 mg/dL High 0 - 1.3 mg/dL [facility] Bilirubin.conjugated [Mass/Vol] 5.1 mg/dL High 0 - 0.4 mg/dL [facility] Interpretation and review of laboratory results Abnormal [facility] Protein [Mass/Vol] 6.8 g/dL 6 - 8 g/dL [facility] alth Bilirubin, Directon 06-16-19 20 Bilirubin.conjugated [Mass/Vol] 5.4 mg/dL High 0 - 0.4 mg/dL [facility] Interpretation and review of laboratory results Abnormal [facility] CBCon 06-16-2019 Erythrocyte distribution width (RBC) [Entitic vol] 15.1 % High 11.6 - 14.8 % [facility] Hematocrit (Bld) [Volume fraction] 38.5 % 36 - 46 % [facility] Hemoglobin (Bld) [Mass/Vol] 12.9 g/dL 12 - 16 g/dL [facility] Interpretation and review of laboratory results Abnormal [facility] MCH (RBC) [Entitic mass] 29.1 pg 26 - 34 pg [facility] MCHC (RBC) [Mass/Vol] 33.5 g/dL 31 - 3 7 g/dL [facility] MCV (RBC) [Entitic vol] 86.9 fL 80 - 100 fL [facility] Nucleated RBC (Bld) [#/Vol] 0.00 10*3/uL [facility] Nucleated RBC/100 WBC (Bld) [Ratio] 0.0 % [facility] Platelet mean volume (Bld) [Entitic vol] 11.3 fL 9 - 15.5 fL [facility] Platelets (Bld) [#/Vol] 185 10*3/uL [facility] RBC (Bld) [#/Vol] 4.43 10*6/uL [facility] WBC (Bld) [#/Vol] 6.48 10*3/uL [facility] Comprehensive Metabolic Pane cayden 06-16-2019 Albumin [Mass/Vol] 3.3 g/dL 3.2 - 5.2 g/dL [facility] ALP [Catalytic activity/Vol] 217 U/L High 40 - 140 U/L [facility] ALT [Catalytic activity/Vol] 825 U/L High 0 - 40 U/L [facility] Anion gap [Moles/Vol] 14 mmol/L 10 - 2 0 mmol/L [facility] AST [Catalytic activity/Vol] 544 U/L High 0 - 45 U/L [facility] Bilirubin [Mass/Vol] 5.9 mg/dL High 0 - 1.3 mg/dL [facility] Calcium [Mass/Vol] 8.4 mg/dL 8.4 - 10. 2 mg/dL [facility] Chloride [Moles/Vol] 103 mmol/L 98 - 10 8 mmol/L [facility] Creatinine [Mass/Vol] 0.32 mg/dL Low 0.40 - 1.10 [facility] GFR/1.73 sq M predicted among non-blacks MDRD (S/P/Bld) [Vol rate/Area] The eGFR should be used for monitoring renal function only and not for medication dosing. [facility] GFR/1.73 sq M.predicted CKD-EPI (S/P/Bld) [Vol rate/Area] 152 >=60 mL/min/1.73 m2 [facility] Glucose [Mass/Vol] 92 mg/dL 65 - 99 mg/dL [facility] HCO3 [Moles/Vol] 26 mmol/L 21 - 32 mmol/L [facility] Interpretation and review of laboratory results Abnormal [facility] Potassium [Moles/Vol] 4.3 mmol/L 3.5 - 5.1 mmol/L [facility] Protein [Mass/Vol] 6.2 g/dL 6 - 8 g/dL [facility] alth Sodium [Moles/Vol] 139 mmol/L 135 - 145 mmol/L [facility] Urea nitrogen [Mass/Vol] 4 mg/dL Low 8 - 25 mg/dL [facility] Urea nitrogen/Creatinine [Mass ratio] 12.5 mg/mg [facility] Bilirubin, Directon 06-15-19 20 Bilirubin.conjugated [Mass/Vol] 4.7 mg/dL High 0 - 0.4 mg/dL [facility] Interpretation and review of laboratory results Abnormal [facility] CBCon 06-15-2019 Erythrocyte distribution width (RBC) [Entitic vol] 14.8 % 11.6 - 14.8 % [facility] Hematocrit (Bld) [Volume fraction] 38.5 % 36 - 46 % [facility] Hemoglobin (Bld) [Mass/Vol] 12.6 g/dL 12 - 16 g/dL [facility] MCH (RBC) [Entitic mass] 29.0 pg 26 - 34 pg [facility] MCHC (RBC) [Mass/Vol] 32.7 g/dL 31 - 3 7 g/dL [facility] MCV (RBC) [Entitic vol] 88.5 fL 80 - 100 fL [facility] Nucleated RBC (Bld) [#/Vol] 0.00 10*3/uL [facility] Nucleated RBC/100 WBC (Bld) [Ratio] 0.0 % [facility] Platelet mean volume (Bld) [Entitic vol] 11.0 fL 9 - 15.5 fL [facility] Platelets (Bld) [#/Vol] 155 10*3/uL [facility] RBC (Bld) [#/Vol] 4.35 10*6/uL [facility] WBC (Bld) [#/Vol] 5.74 10*3/uL [facility] Comprehensive Metabolic Pane cayden 06-15-2019 Albumin [Mass/Vol] 3.2 g/dL 3.2 - 5.2 g/dL [facility] ALP [Catalytic activity/Vol] 193 U/L High 40 - 140 U/L [facility] ALT [Catalytic activity/Vol] 888 U/L High 0 - 40 U/L [facility] Anion gap [Moles/Vol] 15 mmol/L 10 - 2 0 mmol/L [facility] AST [Catalytic activity/Vol] 667 U/L High 0 - 45 U/L [facility] Bilirubin [Mass/Vol] 5.2 mg/dL High 0 - 1.3 mg/dL [facility] Calcium [Mass/Vol] 8.2 mg/dL Low 8.4 - 10. 2 mg/dL [facility] Chloride [Moles/Vol] 103 mmol/L 98 - 10 8 mmol/L [facility] Creatinine [Mass/Vol] 0.36 mg/dL Low 0.40 - 1.10 [facility] GFR/1.73 sq M predicted among non-blacks MDRD (S/P/Bld) [Vol rate/Area] The eGFR should be used for monitoring renal function only and not for medication dosing. [facility] GFR/1.73 sq M.predicted CKD-EPI (S/P/Bld) [Vol rate/Area] 146 >=60 mL/min/1.73 m2 [facility] Glucose [Mass/Vol] 122 mg/dL High 65 - 99 mg/dL [facility] HCO3 [Moles/Vol] 22 mmol/L 21 - 32 mmol/L [facility] Interpretation and review of laboratory results Abnormal [facility] Potassium [Moles/Vol] 3.8 mmol/L 3.5 - 5.1 mmol/L [facility] Protein [Mass/Vol] 5.8 g/dL Low 6 - 8 g/dL [facility] alth Sodium [Moles/Vol] 136 mmol/L 135 - 145 mmol/L [facility] Urea nitrogen [Mass/Vol] 5 mg/dL Low 8 - 25 mg/dL [facility] Urea nitrogen/Creatinine [Mass ratio] 13.9 mg/mg [facility] NM HEPATOBILIARY WO EJECTION FRACTIONon 06-15-2019 [...] tree, and small bowel are not visualized. [facility] Opacified liver with no visualization of [...] regarding the presence or absence of cholecystitis. [employer] Workstation ID: [id number] [facility] Interface, Rad In Fuji Speechq - [...] regarding the presence or absence of cholecystitis. [employer] Workstation ID: [id number] [facility] APTTon 06-14-2019 aPTT Coag (Bld) [Time] 31.1 s [facility] [place], [place] Comment on above: PTT Therapeutic Range: 61.7-88.4 Therapeutic range corresponds to plasma heparin levels of 0.3-0.7 U/mL. Acetaminophen Levelon 2019 Acetaminophen [Mass/Vol] 9.1 [facility] Interpretation and review of laboratory results Normal [facility] Bilirubin, Directon 06-14-19 20 Bilirubin.conjugated [Mass/Vol] 4.3 mg/dL High 0 - 0.4 mg/dL [facility] Interpretation and review of laboratory results Abnormal [facility] CBC WITH AUTO DIFFERENTIALon 06-14-2019 Erythrocyte distribution width (RBC) [Entitic vol] 14.5 % 11.6 - 14.8 % [facility] Hematocrit (Bld) [Volume fraction] 34.6 % Low 36 - 46 % [facility] Hemoglobin (Bld) [Mass/Vol] 11.6 g/dL Low 12 - 16 g/dL [facility] Interpretation and review of laboratory results Abnormal [facility] MCH (RBC) [Entitic mass] 29.7 pg 26 - 34 pg [facility] MCHC (RBC) [Mass/Vol] 33.5 g/dL 31 - 3 7 g/dL [facility] MCV (RBC) [Entitic vol] 88.5 fL 80 - 100 fL [facility] Nucleated RBC (Bld) [#/Vol] 0.00 10*3/uL [facility] Nucleated RBC/100 WBC (Bld) [Ratio] 0.0 % [facility] Platelet mean volume (Bld) [Entitic vol] 10.8 fL 9 - 15.5 fL [facility] Platelets (Bld) [#/Vol] 172 10*3/uL [facility] RBC (Bld) [#/Vol] 3.91 10*6/uL Low [facility] WBC (Bld) [#/Vol] 7.28 10*3/uL [facility] ealth CT ABDOMEN PELVIS W IV CONTR AST Additional Contrast? Noneon 06-14-2019 Ward, [employer] Incoming Radiant Results From [employer] - 06/14/2019 12:27 AM EDT EXAMINATION: CT [...] liver function panel and consider ultrasound imaging. [place] Pericholecystic fluid versus gallbladder wall thickening and additional periportal edema. There are no visualized stones in the gallbladder gallbladder and/or hepatic pathology are suspected. Correlate with liver function panel and consider ultrasound imaging. [place] EXAMINATION: CT ABDOMEN PELVIS W IV [...] structures demonstrate no acute or concerning abnormality. [facility] [place] CT COMPARISON IMPORTon 06-13 This order has been auto-finalized and does not contain a result. [facility] Comprehensive Metabolic Pane cayden 06-14-2019 Albumin [Mass/Vol] 3.0 g/dL Low 3.2 - 5.2 g/dL [facility] ALP [Catalytic activity/Vol] 183 U/L High 40 - 140 U/L [facility] ALT [Catalytic activity/Vol] 808 U/L High 0 - 40 U/L [facility] Anion gap [Moles/Vol] 16 mmol/L 10 - 2 0 mmol/L [facility] AST [Catalytic activity/Vol] 592 U/L High 0 - 45 U/L [facility] Bilirubin [Mass/Vol] 4.9 mg/dL High 0 - 1.3 mg/dL [facility] Calcium [Mass/Vol] 8.4 mg/dL 8.4 - 10. 2 mg/dL [facility] Chloride [Moles/Vol] 104 mmol/L 98 - 10 8 mmol/L [facility] Creatinine [Mass/Vol] 0.43 mg/dL 0.40 - 1.10 [facility] GFR/1.73 sq M predicted among non-blacks MDRD (S/P/Bld) [Vol rate/Area] The eGFR should be used for monitoring renal function only and not for medication dosing. [facility] GFR/1.73 sq M.predicted CKD-EPI (S/P/Bld) [Vol rate/Area] 138 >=60 mL/min/1.73 m2 [facility] Glucose [Mass/Vol] 79 mg/dL 65 - 99 mg/dL [facility] HCO3 [Moles/Vol] 21 mmol/L 21 - 32 mmol/L [facility] Interpretation and review of laboratory results Abnormal [facility] Potassium [Moles/Vol] 3.8 mmol/L 3.5 - 5.1 mmol/L [facility] Protein [Mass/Vol] 5.7 g/dL Low 6 - 8 g/dL [facility] alth Sodium [Moles/Vol] 137 mmol/L 135 - 145 mmol/L [facility] Urea nitrogen [Mass/Vol] 9 mg/dL 8 - 25 mg/dL [facility] Urea nitrogen/Creatinine [Mass ratio] 20.9 mg/mg High [facility] DRUGS OF ABUSE SCREEN, URINE on 06-14-2019 Amphetamines Ql (U) None Detected None Detected [facility] Comment on above: Urine Amphetamine Cu toff: < 1000 ng/mL = None Detected Barbiturates Screen Ql (U) None Detected None Detected [facility] Comment on above: Urine Barbiturates C utoff: < 200 ng/mL = None Detected Benzodiazepines Ql (U) None Detected None Detected [facility] Comment on above: Urine Benzodiazepine Cutoff: < 300 ng/mL = None Detected Cannabinoids Screen Ql (U) None Detected None Detected [facility] Comment on above: Urine Cannabinoids C utoff: < 50 ng/mL = None Detected Cocaine Ql (U) Positive Abnormal None Detected [facility] Comment on above: Urine Cocaine Cutoff : < 300 ng/mL = None Detected Interpretation and review of laboratory results Abnormal [facility] Methadone Screen Ql (U) None Detected Non e Detected [facility] Comment on above: Urine Methadone Cuto ff: < 300 ng/mL = None Detected Opiates Screen Ql (U) None Detected None Detected [facility] Comment on above: Urine Opiates Cutoff : < 300 ng/mL = None Detected Oxycodone Ql (U) None Detected None Detected [facility] Comment on above: Urine Oxycodone Cuto ff: < 100 ng/mL = None Detected Screen results should be used for treatment purposes only. Specimen will be kept for 2 weeks, if the sample is adequate. Confirmation testing can be initiated by calling the lab within 2 weeks. [facility] HEPATITIS PANEL, ACUTEon HAV IgM Ql (S) Negative Negative [facility] HBV core IgM Ql (S) Negative Negative [facility] HBV surface Ag Ql (S) Negative Negative [facility] HCV Ab Ql (S) Positive Abnormal Negative [facility] Comment on above: A positive antibody test requires additional follow-up testing, Hepatitis C Virus Quantitation, to determine if a person is currently infected with Hepatitis C. Interpretation and review of laboratory results Abnormal [facility] Test performed using Constantin DEVIKA immunoassay system [facility] Lactic Acid, Plasmaon 2019 Interpretation and review of laboratory results Normal [facility] Lactate [Moles/Vol] 0.8 mmol/L 0.6 - 2 mmol/L [facility] MORPHOLOGYon 06-14-2019 Platelets LM Ql (Bld) Normal Normal [facility] RBC morphology finding Nom (Bld) Normal [facility] MR MRCPon 06-14-2019 EXAMINATION: MR MRCP [...] Axial T1-weighted images were obtained in- and [id number]. Axial diffusion-weighted imaging was also performed. FINDINGS: The liver overall appears enlarged with the right hepatic lobe measuring 22.6 cm ickgwtwh-ba-mffiftb r. The spleen measures 14.6 cm hjuibtkl-vn-iczohwn r and is also mildly enlarged. There [...] . 4. Trace volume of abdominal ascites. [employer] Workstation ID: [id number] [facility] Interface, Rad In Asif Parhamq - [...] Axial T1-weighted images were obtained in- and [id number]. Axial diffusion-weighted imaging was also performed. FINDINGS: The liver overall appears enlarged with the right hepatic lobe measuring 22.6 cm yivfhdiu-cb-echycru r. The spleen measures 14.6 cm arsmsaxl-po-zyyoeet r and is also mildly enlarged. There [...] . 4. Trace volume of abdominal ascites. [employer] Workstation ID: [id number] [facility] Manual Differentialon 2019 Basophils (Bld) [#/Vol] 0.00 10*3/uL [facility] Basophils/100 WBC (Bld) 0.0 % [facility] Eosinophils (Bld) [#/Vol] 0.00 10*3/uL [facility] Eosinophils/100 WBC (Bld) 0.0 % [facility] Lymphocytes (Bld) [#/Vol] 3.28 10*3/uL [facility] Lymphocytes/100 WBC (Bld) 37.0 % [facility] Monocytes (Bld) [#/Vol] 0.44 10*3/uL [facility] Monocytes/100 WBC (Bld) 6.0 % [facility] Neutrophils (Bld) [#/Vol] 3.57 10*3/uL [facility] Neutrophils/100 WBC (Bld) 49.0 % [facility] Variant lymphocytes/100 WBC (Bld) 8.0 % [facility] PT/INRon 06-14-2019 INR Coag (PPP) [Relative time] 1.3 {INR} [facility] Interpretation and review of laboratory results Abnormal [facility] PT Coag (PPP) [Time] 15.5 s [facility] During the induction phase of oral anticoagulation, the INR may not reflect the anticoagulation status of the patient. Therapeutic ranges for INR's are: Most clinical situations: INR 2.0-3.0 Mechanical Prosthetic Valve: INR 2.5-3.5 Critical: INR >5.0 [facility] Protime-INRon 06-14-2019 INR Coag (PPP) [Relative time] 1.2 {INR} [facility] [place] Comment on above: * THERAPY INDICATIONS * REFERENCE RANGES Pts not on anti-coagulants 1.0 - 1.5 INR Low risk pts on anti-coagulants 2.0 - 3.0 INR High risk pts on anti-coagulants 2.5 - 3.5 INR Prevention of atrial thrombo-embolism 3.0 - 4.5 INR Interpretation and review of laboratory results Abnormal [facility] [place] [place] PT Coag (PPP) [Time] 11.7 s High [facility] [place], [place] Salicylate Levelon 0 Interpretation and review of laboratory results Abnormal [facility] Salicylates [Mass/Vol] mg/dL Low 10 - 20 mg/dL [facility] URINALYSISon 06-14-2019 Bacteria Auto Ql (U) Rare Abnormal None Se en /hpf [facility] Bilirubin Ql (U) Positive Abnormal Negative [facility] Comment on above: False positive urine bilirubins can occur in the setting of a large amount of hemoglobin and secondary to medications including anti-inflammatory agents, rifampin, and pyridium. Clarity Refractometry automated (U) Clear Clear [facility] Color (U) Erica Abnormal Colorless, Yellow [facility] Epithelial cells.squamous Auto (Urine sed) [#/Area] 4 [facility] alth Glucose Auto test strip (U) [Mass/Vol] Negative Negative mg/dL [facility] Hemoglobin Auto test strip Ql (U) Negative Negative [facility] Interpretation and review of laboratory results Abnormal [facility] Ketones (U) [Mass/Vol] >=80 Abnormal Negat krystal mg/dL [facility] Leukocyte esterase Auto test strip Ql (U) Negative Negative [facility] Mucus Auto (Urine sed) [#/Area] Rare None Seen, Rare /lpf [facility] Nitrite Auto test strip Ql (U) Negative Negative [facility] pH (U) 6.0 [pH] [facility] Protein (U) [Mass/Vol] 30 Abnormal Negat krystal mg/dL [facility] Comment on above: False positive resul ts may occur in urines with large amounts of hemoglobin, pH greater than 8.0, contrast medium, or disinfectants including ammonium compounds. RBC Auto (Urine sed) [#/Area] 2 [facility] Specific gravity (U) [Rel density] 1.028 High [facility] Urobilinogen (U) [Mass/Vol] >=4.0 Abnormal <2.0 mg/dL [facility] WBC Auto (Urine sed) [#/Area] 2 [facility] Microscopic examination is performed on all urinalysis samples and only positive findings are reported. The test for blood on the chemical analytic portion of urinalysis may also be positive due to hemoglobinuria and myoglobinuria and if red blood cells are present they are quantified by microscopic examination. [facility] US ABDOMEN LIMITED STUDYon 0 06-14-2019 [...] liver likely small hemangioma. Workstation ID: [id number] [facility] EXAMINATION: US ABDOMEN LIMITED STUDY HISTORY: [...] measures 10.7 cm in length. No hydronephrosis. [facility] 1. Contracted gallbladder limits evaluation. No cholelithiasis identified. Nonspecific edematous gallbladder wall thickening and reported positive sonographic Short's sign, cannot exclude acalculus cholecystitis. No biliary ductal dilatation. 2. 1.3 cm echogenic lesion left lobe of the liver likely small hemangioma. Workstation ID: [id number] [facility] Amylaseon 06-13-2019 Amylase [Catalytic activity/Vol] 22 U/L Low 28 - 100 U/L [place] CBC Auto Differentialon Basophils (Bld) [#/Vol] 0.00 10*3/uL [place] Basophils/100 WBC (Bld) 1 % 0 - 2 % [place] Differential Type YES [place] Eosinophils (Bld) [#/Vol] 0.00 10*3/uL [place] Eosinophils/100 WBC (Bld) 0 % 0 - 5 % [place] Erythrocyte distribution width (RBC) [Ratio] 14.9 % 12.1 - 15.2 % [place] Hematocrit (Bld) [Volume fraction] 43.3 % 36 - 46 % [place] Hemoglobin (Bld) [Mass/Vol] 14.3 g/dL 12 - 16 g/dL [place] Lymphocytes (Bld) [#/Vol] 2.50 10*3/uL [place] Lymphocytes/100 WBC (Bld) 30 % 15 - 40 % [place] MCH (RBC) [Ent[place] mass] 28.8 pg 26 - 34 pg [place] MCHC (RBC) [Mass/Vol] 33.1 g/dL 31 - 3 7 g/dL [place] MCV (RBC) [Ent[place] vol] 87.2 fL 80 - 100 fL [place] Monocytes (Bld) [#/Vol] 0.70 10*3/uL [place] Monocytes/100 WBC (Bld) 8 % 4 - 8 % [place] Platelet mean volume (Bld) [Entitic vol] NOT REPORTED 6 - 12 fL [place] Platelets (Bld) [#/Vol] 203 10*3/uL [place] Platelets (Bld) [#/Vol] NOT REPORTED [place] RBC (Bld) [#/Vol] 4.97 10*6/uL 4 - 5.2 m/uL [place] RBC morphology finding Nom (Bld) NOT REPORTED [place] Segmented neutrophils/100 WBC (Bld) 61 % 47 - 75 % [place] Segs Absolute 5.20 [place] WBC (Bld) [#/Vol] 8.4 10*3/uL [place] WBC (Bld) [#/Vol] NOT REPORTED per 100 WBC [place] WBC Morphology NOT REPORTED [place] Comprehensive Metabolic Pane l w/ Reflex to MGon 06-13-2019 Albumin [Mass/Vol] 4.1 g/dL 3.5 - 5.2 g/dL [place] Albumin/Globulin [Mass ratio] NOT REPORTED [place] ALP [Catalytic activity/Vol] 255 U/L High 35 - 104 U/L [place] ALT [Catalytic activity/Vol] 1116 U/L High 5 - 33 U/L [place] Anion gap [Moles/Vol] 17 mmol/L 9 - 17 mmol/L [place] AST [Catalytic activity/Vol] 665 U/L High <32 [place] Bilirubin Ql (U) 6.52 mg/dL High 0.3 - 1.2 mg/dL [place] Bun/Cre Ratio 17 [place] Calcium [Mass/Vol] 10.1 mg/dL 8.6 - 10. 4 mg/dL [place] Chloride [Moles/Vol] 95 mmol/L Low 98 - 10 7 mmol/L [place] CO2 [Moles/Vol] 24 mmol/L 20 - 31 mmol/L [place] Creatinine [Mass/Vol] 0.82 mg/dL 0.5 - 0.9 mg/dL [place] GFR >60 >60 mL/min [place] GFR Non- >60 >60 mL/min [place] GFR/1.73 sq M predicted among non-blacks MDRD (S/P/Bld) [Vol rate/Area] [place] Comment on above: Average GFR for 20-2 9 years old: 116 mL/min/1.73sq m Chronic Kidney Disease: <60 mL/min/1.73sq m Kidney failure: <15 mL/min/1.73sq m eGFR calculated using average adult body mass. Additional eGFR calculator available at: http://www.[employer]/multiple_crcl_2012.htm GFR/1.73 sq M predicted among non-blacks MDRD (S/P/Bld) [Vol rate/Area] NOT REPORTED [place] Glucose [Mass/Vol] 134 mg/dL High 70 - 99 mg/dL [place] Interpretation and review of laboratory results Abnormal [place] Potassium [Moles/Vol] 3.7 mmol/L 3.7 - 5.3 mmol/L [place] Protein [Mass/Vol] 8.1 g/dL 6.4 - 8.3 g/dL [place] Sodium [Moles/Vol] 136 mmol/L 135 - 144 mmol/L [place] Urea nitrogen [Mass/Vol] 14 mg/dL 6 - 20 mg/dL [place] Drug screen multi urineon Amphetamine Screen, Ur Negative NEGATIVE [place] Comment on above: (Positive cutoff 500 ng/mL) Barbiturate Screen, Ur Negative NEGATIVE [place] Comment on above: (Positive cutoff 200 ng/mL) Benzodiazepine Screen, Urine Negative NEGATIVE [place] Comment on above: (Positive cutoff 150 ng/mL) Buprenorphine Urine NOT REPORTED NEGATIVE [place] Cannabinoid Scrn, Ur Negative NEGATIVE [place] Comment on above: (Positive cutoff 50 ng/mL) Cocaine Metabolite, Urine Positive Abnormal NEGATIVE [place] Comment on above: (Positive cutoff 150 ng/mL) Interpretation and review of laboratory results Abnormal [place] MDMA, Urine NOT REPORTED NEGATIVE [place] Methadone Screen, Urine Negative NEGATIVE [place] Comment on above: (Positive cutoff 200 ng/mL) Methamphetamine, Urine Negative NEGATIVE [place] Comment on above: (Positive cutoff 500 ng/mL) Opiates, Urine Positive Abnormal NEGATIVE [place] Comment on above: (Positive cutoff 100 ng/mL) Oxycodone Screen, Ur Negative NEGATIVE [place] Comment on above: (Positive cutoff 100 ng/mL) Phencyclidine, Urine Negative NEGATIVE [place] Comment on above: (Positive cutoff 25 ng/mL) Propoxyphene, Urine Negative NEGATIVE [place] Comment on above: (Positive cutoff 300 ng/mL) Test Information NOT REPORTED [place] Tricyclic Antidepressants, Urine Negative NEGATIVE [place] Comment on above: (Positive cutoff 300 ng/mL) Drug screen results are to be used for medical purposes only. All positive results are unconfirmed. Testing for employment or legal uses should be sent to a reference laboratory for confirmation. Lactic Acidon 06-13-2019 Lactate [Moles/Vol] 1.2 mmol/L 0.5 - 2. 2 mmol/L [place] Lipaseon 06-13-2019 Lipase [Catalytic activity/Vol] 8 U/L Low 13 - 60 U/L [place] Microscopic Urinalysison Amorphous, UA NOT REPORTED None [place] Bacteria, UA 2+ Abnormal None [place] Casts UA 5 TO 10 HYALINE /LPF [place] Casts UA 2 TO 5 WAXY /LPF [place] Crystals, UA NOT REPORTED None /HPF [place] Epithelial Cells UA LOADED /HPF [place] Interpretation and review of laboratory results Abnormal [place] Mucus, UA 4+ Abnormal None [place] Other Observations UA NOT REPORTED NOT REQ. [place] RBC (U) [#/Vol] 5 TO 10 [place] Renal Epithelial, UA NOT REPORTED 0 /HPF [place] Trichomonas, UA NOT REPORTED None [place] WBC, UA 10 TO 20 0 /HPF [place] Yeast, UA NOT REPORTED None [place] - [place] Otheron 06-13-2019 Interpretation and review of laboratory results Abnormal [place] Immature granulocytes (Bld) [#/Vol] NOT REPORTED 0 % [place] , Urineon 0 Beta HCG ( test) Ql (U) Negative NEGATIVE [place] Urinalysis, reflex to micros copicon 06-13-2019 Bilirubin Urine 3+ Abnormal NEGATIVE [place] Color, UA BROWN Abnormal YELLOW [place] Glucose, Ur Negative NEGATIVE [place] Interpretation and review of laboratory results Abnormal [place] Ketones Ql (U) MODERATE Abnormal NEGATIVE [place] Leukocyte esterase Test strip Ql (U) 1+ Abnormal NEGATIVE [place] Nitrite, Urine Positive Abnormal NEGATIVE [place] pH, UA 5.0 [place] Protein (U) [Mass/Vol] 1+ Abnormal NEGATIVE [place] Specific [place], UA 1.020 [place] Turbidity UA CLEAR CLEAR [place] Urinalysis Comments [place] Urine Hgb TRACE Abnormal NEGAT[place] Urobilinogen, Urine 12 mg/dL Abnormal Normal [place] Vital Signs Date Time Vital Sign Value Performing Clinician Facility 10-05-2023 21:00-0400 Body temperature 99.61 [degF] Violet Juarez MD Work Phone: [facility] 10-05-2023 21:00-0400 Diastolic blood pressure 68 mm[Hg] Violet Juarez MD Work Phone: [facility] 10-05-2023 21:00-0400 Heart rate 93 /min Violet Juarez MD Work Phone: [facility] 10-05-2023 21:00-0400 Respiratory rate 16 /min Violet Juarez MD Work Phone: [facility] 10-05-2023 21:00-0400 SaO2% (BldA) [Mass fraction] 97 % Violet Juarez MD Work Phone: [facility] 10-05-2023 21:00-0400 Systolic blood pressure 114 mm[Hg] Violet Juarez MD Work Phone: [facility] 05-13-2023 11:27-0500 Body temperature 98.6 [degF] Jonathan Martinez [facility] 05-13-2023 11:27-0500 Diastolic blood pressure 78 mm[Hg] Jonathan Martinez [facility] 05-13-2023 11:27-0500 Heart rate 83 /min Jonathan Martinez [facility] 05-13-2023 11:27-0500 Respiratory rate 18 /min Jonathan Martinez [facility] 05-13-2023 11:27-0500 SaO2% (BldA) [Mass fraction] 97 % Jonathan Martinez [facility] 05-13-2023 11:27-0500 Systolic blood pressure 113 mm[Hg] Jonathan Martinez [facility] 05-11-2023 21:49-0500 Body temperature 98.06 [degF] [facility] 05-11-2023 21:49-0500 Diastolic blood pressure 84 mm[Hg] [facility] 05-11-2023 21:49-0500 Heart rate 105 /min [facility] 05-11-2023 21:49-0500 Respiratory rate 17 /min [facility] 05-11-2023 21:49-0500 SaO2% (BldA) [Mass fraction] 97 % [facility] 05-11-2023 21:49-0500 Systolic blood pressure 130 mm[Hg] Zac Fields [facility] 05-10-2023 11:41-0500 Body height 160 cm Chet Berumen DO Work Phone: [facility] [employer] 05-10-2023 11:41-0500 Body mass index (BMI) [Ratio] 44.29 kg/m2 Chet Berumen DO Work Phone: [facility] [employer] 05-10-2023 11:41-0500 Body temperature 97.9 [degF] Chet Berumen DO Work Phone: [facility] [employer] 05-10-2023 11:41-0500 Body weight 113.4 kg Chet Berumen DO Work Phone: [facility] [employer] 05-10-2023 11:41-0500 Diastolic blood pressure 76 mm[Hg] Chet Berumen DO Work Phone: [facility] [employer] 05-10-2023 11:41-0500 Heart rate 94 /min Chet Berumen DO Work Phone: [facility] [employer] 05-10-2023 11:41-0500 Respiratory rate 18 /min Chet Berumen DO Work Phone: [facility] [employer] 05-10-2023 11:41-0500 SaO2% (BldA) [Mass fraction] 96 % Chet Berumen DO Work Phone: [facility] [employer] 05-10-2023 11:41-0500 Systolic blood pressure 146 mm[Hg] Chet Berumen DO Work Phone: [email or web address] 09-04-2022 11:27-0400 Body height 160 cm Erin Lacy MD Work Phone: [email or web address] 09-04-2022 11:27-0400 Body mass index (BMI) [Ratio] 44.99 kg/m2 Erin Lacy MD Work Phone: [email or web address] 09-04-2022 11:27-0400 Body temperature 98.2 [degF] Erin Lacy MD Work Phone: [email or web address] 09-04-2022 11:27-0400 Body weight 115.21 kg Erin Lacy MD Work Phone: [email or web address] 09-04-2022 11:27-0400 Diastolic blood pressure 71 mm[Hg] Erin Lacy MD Work Phone: [email or web address] 09-04-2022 11:27-0400 Heart rate 88 /min Erin Lacy MD Work Phone: [email or web address] 09-04-2022 11:27-0400 Respiratory rate 18 /min Erin Lacy MD Work Phone: [email or web address] 09-04-2022 11:27-0400 SaO2% (BldA) [Mass fraction] 97 % Erin Lacy MD Work Phone: [email or web address] 09-04-2022 11:27-0400 Systolic blood pressure 124 mm[Hg] Erin Lacy MD Work Phone: [email or web address] 06-29-2022 09:49-0400 Diastolic blood pressure 57 mm[Hg] Todd Bing [facility] 06-29-2022 09:49-0400 Heart rate 73 /min Todd Bing [facility] 06-29-2022 09:49-0400 Mean blood pressure 76 mm[Hg] Todd Bing [facility] 06-29-2022 09:49-0400 Respiratory rate 16 /min Todd Bing [facility] 06-29-2022 09:49-0400 Systolic blood pressure 113 mm[Hg] Todd Bing [facility] 05-19-2022 19:28-0400 Body height 160 cm Erin Lacy MD Work Phone: [email or web address] 05-19-2022 19:28-0400 Body mass index (BMI) [Ratio] 45.17 kg/m2 Erin Lacy MD Work Phone: [email or web address] 05-19-2022 19:28-0400 Body weight 115.67 kg Erin Lacy MD Work Phone: [email or web address] 05-19-2022 19:25-0400 Body temperature 98.29 [degF] Erin Lacy MD Work Phone: [email or web address] 05-19-2022 19:25-0400 Diastolic blood pressure 68 mm[Hg] Erin Lacy MD Work Phone: [email or web address] 05-19-2022 19:25-0400 Heart rate 78 /min Erin Lacy MD Work Phone: [email or web address] 05-19-2022 19:25-0400 Respiratory rate 16 /min Erin Lacy MD Work Phone: [email or web address] 05-19-2022 19:25-0400 SaO2% (BldA) [Mass fraction] 98 % Erin Lacy MD Work Phone: [email or web address] 05-19-2022 19:25-0400 Systolic blood pressure 110 mm[Hg] Erin Lacy MD Work Phone: [email or web address] 05-11-2022 19:17-0500 Body height 160 cm Anuj Quinn MD Work Phone: [email or web address] 05-11-2022 19:17-0500 Body mass index (BMI) [Ratio] 45.06 kg/m2 Anuj Quinn MD Work Phone: [email or web address] 05-11-2022 19:17-0500 Body temperature 98.01 [degF] Anuj Quinn MD Work Phone: [email or web address] 05-11-2022 19:17-0500 Body weight 115.39 kg Anuj Quinn MD Work Phone: [email or web address] 05-11-2022 19:17-0500 Diastolic blood pressure 91 mm[Hg] Anuj Quinn MD Work Phone: [email or web address] 05-11-2022 19:17-0500 Heart rate 78 /min Anuj Quinn MD Work Phone: [email or web address] 05-11-2022 19:17-0500 Respiratory rate 18 /min Anuj Quinn MD Work Phone: [email or web address] 05-11-2022 19:17-0500 SaO2% (BldA) [Mass fraction] 96 % Anuj Quinn MD Work Phone: [email or web address] 05-11-2022 19:17-0500 Systolic blood pressure 121 mm[Hg] Anuj Quinn MD Work Phone: [email or web address] 10-12-2021 18:31-0400 Heart rate 93 /min Rishabh aMncini MD Work Phone: [email or web address] 10-12-2021 18:31-0400 Respiratory rate 16 /min Rishabh Mancini MD Work Phone: [email or web address] 10-12-2021 18:31-0400 SaO2% (BldA) [Mass fraction] 97 % Rishabh Mancini MD Work Phone: [email or web address] 10-12-2021 18:12-0400 Body height 160 cm Rishabh Mancini MD Work Phone: [email or web address] 10-12-2021 18:12-0400 Body mass index (BMI) [Ratio] 47.12 kg/m2 Rishabh Mancini MD Work Phone: [email or web address] 10-12-2021 18:12-0400 Body temperature 99.19 [degF] Rishabh Mancini MD Work Phone: [email or web address] 10-12-2021 18:12-0400 Body weight 120.66 kg Rishabh Mancini MD Work Phone: [employer] 10-12-2021 18:12-0400 Diastolic blood pressure 77 mm[Hg] Rishabh Mancini MD Work Phone: [facility] 10-12-2021 18:12-0400 Systolic blood pressure 126 mm[Hg] Rishabh Mancini MD Work Phone: [facility] 07-22-2021 10:38-0400 Body height 160 cm Clark Moser MD Work Phone: [facility] [employer] 07-22-2021 10:38-0400 Body mass index (BMI) [Ratio] 47.63 kg/m2 Clark Moser MD Work Phone: [facility] 07-22-2021 10:38-0400 Body temperature 97.3 [degF] Clark Moser MD Work Phone: [facility] 07-22-2021 10:38-0400 Body weight 121.97 kg Clark Moser MD Work Phone: [facility] 07-22-2021 10:38-0400 Diastolic blood pressure 88 mm[Hg] Clark Moser MD Work Phone: [facility] 07-22-2021 10:38-0400 Heart rate 104 /min Clark Moser MD Work Phone: [facility] 07-22-2021 10:38-0400 Respiratory rate 18 /min Clark Moser MD Work Phone: [facility] 07-22-2021 10:38-0400 SaO2% (BldA) [Mass fraction] 95 % Clark Moser MD Work Phone: [facility] 07-22-2021 10:38-0400 Systolic blood pressure 126 mm[Hg] Clark Moser MD Work Phone: [facility] [employer] 05-15-2021 09:11-0500 Body height 160 cm [facility] 05-14-2021 10:41-0500 Body height 160 cm Farhat Vang MD Work Phone: [facility] 05-14-2021 10:41-0500 Body mass index (BMI) [Ratio] 44.96 kg/m2 Farhat Vang MD Work Phone: [facility] 05-14-2021 10:41-0500 Body temperature 97.81 [degF] Farhat Vang MD Work Phone: [facility] 05-14-2021 10:41-0500 Body weight 115.12 kg Farhat Vang MD Work Phone: [facility] 05-14-2021 10:41-0500 Diastolic blood pressure 78 mm[Hg] Farhat Vang MD Work Phone: [facility] 05-14-2021 10:41-0500 Heart rate 98 /min Farhat Vang MD Work Phone: [facility] 05-14-2021 10:41-0500 Respiratory rate 18 /min Farhat Vang MD Work Phone: [facility] 05-14-2021 10:41-0500 SaO2% (BldA) [Mass fraction] 97 % Farhat Vang MD Work Phone: [facility] 05-14-2021 10:41-0500 Systolic blood pressure 124 mm[Hg] Farhat Vang MD Work Phone: [facility] 04-16-2021 10:15-0500 Body height 160 cm Farhat Vang MD Work Phone: [facility] 04-16-2021 10:15-0500 Body mass index (BMI) [Ratio] 44.44 kg/m2 Farhat Vang MD Work Phone: [facility] 04-16-2021 10:15-0500 Body temperature 98.01 [degF] Farhat Vang MD Work Phone: [facility] 04-16-2021 10:15-0500 Body weight 113.81 kg Farhat Vang MD Work Phone: [facility] 04-16-2021 10:15-0500 Diastolic blood pressure 78 mm[Hg] Farhat Vang MD Work Phone: [facility] 04-16-2021 10:15-0500 Heart rate 100 /min Farhat Vang MD Work Phone: [facility] 04-16-2021 10:15-0500 Respiratory rate 18 /min Farhat Vang MD Work Phone: [facility] 04-16-2021 10:15-0500 SaO2% (BldA) [Mass fraction] 96 % Farhat Vang MD Work Phone: [facility] 04-16-2021 10:15-0500 Systolic blood pressure 122 mm[Hg] Farhat Vang MD Work Phone: [facility] 03-23-2021 12:40-0500 Body height 160 cm Anuj Quinn MD Work Phone: [facility] [employer] 03-23-2021 12:40-0500 Body mass index (BMI) [Ratio] 44.46 kg/m2 Anuj Quinn MD Work Phone: [employer] 03-23-2021 12:40-0500 Body temperature 99.7 [degF] Anuj Quinn MD Work Phone: [employer] 03-23-2021 12:40-0500 Body weight 113.85 kg Anuj Quinn MD Work Phone: [employer] 03-23-2021 12:40-0500 Diastolic blood pressure 74 mm[Hg] Anuj Quinn MD Work Phone: [employer] 03-23-2021 12:40-0500 Heart rate 107 /min Anuj Quinn MD Work Phone: [employer] 03-23-2021 12:40-0500 Respiratory rate 16 /min Anuj Quinn MD Work Phone: [employer] 03-23-2021 12:40-0500 SaO2% (BldA) [Mass fraction] 96 % Anuj Quinn MD Work Phone: [employer] 03-23-2021 12:40-0500 Systolic blood pressure 131 mm[Hg] Anuj Quinn MD Work Phone: [facility] 01-15-2021 10:43-0500 Body height 160 cm Holland Ann MD Work Phone: [facility] 01-15-2021 10:43-0500 Body mass index (BMI) [Ratio] 42.55 kg/m2 Holland Ann MD Work Phone: [facility] 01-15-2021 10:43-0500 Body temperature 97.39 [degF] Holland Ann MD Work Phone: [facility] 01-15-2021 10:43-0500 Body weight 108.95 kg Holland Ann MD Work Phone: [facility] 01-15-2021 10:43-0500 Diastolic blood pressure 66 mm[Hg] Holland Ann MD Work Phone: [facility] 01-15-2021 10:43-0500 Heart rate 101 /min Holland Ann MD Work Phone: [facility] 01-15-2021 10:43-0500 SaO2% (BldA) [Mass fraction] 96 % Holland Ann MD Work Phone: [facility] 01-15-2021 10:43-0500 Systolic blood pressure 112 mm[Hg] Holland Ann MD Work Phone: [facility] 12-27-2020 18:15-0400 Body temperature 98.49 [degF] Wayne Springer MD Work Phone: [employer] Work Phone: 12-27-2020 18:15-0400 Diastolic blood pressure 77 mm[Hg] Wayne Springer MD Work Phone: [employer] Work Phone: Comment on above: Simultaneous filing. User may not have s een previous data. 12-27-2020 18:15-0400 Heart rate 98 /min Wayne Springer MD Work Phone: [employer] Work Phone: 12-27-2020 18:15-0400 Respiratory rate 20 /min Wayne Springer MD Work Phone: [employer] Work Phone: 12-27-2020 18:15-0400 SaO2% (BldA) [Mass fraction] 95 % Wayne Springer MD Work Phone: [employer] Work Phone: Comment on above: Simultaneous filing. User may not have s een previous data. 12-27-2020 18:15-0400 Systolic blood pressure 107 mm[Hg] Wayne Springer MD Work Phone: [employer] Work Phone: Comment on above: Simultaneous filing. User may not have s een previous data. 11-20-2020 21:07-0400 Body height 160 cm Anuj Quinn MD Work Phone: [employer] Work Phone: 11-20-2020 21:07-0400 Body mass index (BMI) [Ratio] 38.62 kg/m2 Anuj Quinn MD Work Phone: [employer] Work Phone: 11-20-2020 21:07-0400 Body temperature 98.6 [degF] Anuj Quinn MD Work Phone: [employer] Work Phone: 11-20-2020 21:07-0400 Body weight 98.88 kg Anuj Quinn MD Work Phone: [employer] Work Phone: 11-20-2020 21:07-0400 Diastolic blood pressure 65 mm[Hg] Anuj Quinn MD Work Phone: [employer] Work Phone: 11-20-2020 21:07-0400 Heart rate 84 /min Anuj Quinn MD Work Phone: [employer] Work Phone: 11-20-2020 21:07-0400 Respiratory rate 16 /min Anuj Quinn MD Work Phone: [employer] Work Phone: 11-20-2020 21:07-0400 SaO2% (BldA) [Mass fraction] 97 % Anuj Quinn MD Work Phone: [employer] Work Phone: 11-20-2020 21:07-0400 Systolic blood pressure 113 mm[Hg] Anuj Quinn MD Work Phone: [employer] Work Phone: 11-07-2020 16:28-0400 Body height 160 cm Nicholas Roger MD Work Phone: [employer] Work Phone: 11-07-2020 16:28-0400 Body mass index (BMI) [Ratio] 38.26 kg/m2 Nicholas Roger MD Work Phone: [employer] Work Phone: 11-07-2020 16:28-0400 Body temperature 98.8 [degF] Nicholas Roger MD Work Phone: [employer] Work Phone: 11-07-2020 16:28-0400 Body weight 97.98 kg Nicholas Roger MD Work Phone: [employer] Work Phone: 11-07-2020 16:28-0400 Diastolic blood pressure 71 mm[Hg] Nicholas Roger MD Work Phone: [employer] Work Phone: 11-07-2020 16:28-0400 Heart rate 98 /min Nicholas Roger MD Work Phone: [employer] Work Phone: 11-07-2020 16:28-0400 Respiratory rate 18 /min Nicholas Roger MD Work Phone: [employer] Work Phone: 11-07-2020 16:28-0400 SaO2% (BldA) [Mass fraction] 94 % Nicholas Roger MD Work Phone: [employer] Work Phone: 11-07-2020 16:28-0400 Systolic blood pressure 120 mm[Hg] Nicholas Roger MD Work Phone: [employer] Work Phone: 07-09-2020 10:52-0400 Body height 160 cm Zelda Bautista CNP Work Phone: [facility] 07-09-2020 10:52-0400 Body mass index (BMI) [Ratio] 41.27 kg/m2 Zelda Bautista CNP Work Phone: [facility] 07-09-2020 10:52-0400 Body weight 105.69 kg Zelda Bautista CNP Work Phone: [facility] 07-09-2020 10:52-0400 Diastolic blood pressure 70 mm[Hg] Zelda Bautista CNP Work Phone: [facility] 07-09-2020 10:52-0400 Heart rate 97 /min Zelda Bautista CNP Work Phone: [facility] 07-09-2020 10:52-0400 Systolic blood pressure 101 mm[Hg] Zelda Bautista CNP Work Phone: [facility] 06-24-2020 09:48-0400 Body mass index (BMI) [Ratio] 40.92 kg/m2 Anuj Quinn MD Work Phone: [employer] Work Phone: 06-24-2020 09:48-0400 Body temperature 97.9 [degF] Anuj Quinn MD Work Phone: [employer] Work Phone: 06-24-2020 09:48-0400 Body weight 104.78 kg Anuj Quinn MD Work Phone: [employer] Work Phone: 06-24-2020 09:48-0400 Diastolic blood pressure 64 mm[Hg] Anuj Quinn MD Work Phone: [employer] Work Phone: 06-24-2020 09:48-0400 Heart rate 120 /min Anuj Quinn MD Work Phone: [employer] Work Phone: 06-24-2020 09:48-0400 Respiratory rate 18 /min Anuj Quinn MD Work Phone: [employer] Work Phone: 06-24-2020 09:48-0400 SaO2% (BldA) [Mass fraction] 100 % Anuj Quinn MD Work Phone: [employer] Work Phone: 06-24-2020 09:48-0400 Systolic blood pressure 115 mm[Hg] Anuj Quinn MD Work Phone: [employer] Work Phone: 06-09-2020 10:44-0400 Body height 160 cm Lelo Gallegos MD Work Phone: [facility] 06-09-2020 10:44-0400 Body mass index (BMI) [Ratio] 41.27 kg/m2 Lelo Gallegos MD Work Phone: [facility] 06-09-2020 10:44-0400 Body weight 105.69 kg Lelo Gallegos MD Work Phone: [facility] 06-09-2020 10:44-0400 Diastolic blood pressure 75 mm[Hg] Lelo Gallegos MD Work Phone: [facility] 06-09-2020 10:44-0400 Heart rate 116 /min Lelo Gallegos MD Work Phone: [facility] 06-09-2020 10:44-0400 Systolic blood pressure 110 mm[Hg] Lelo Gallegos MD Work Phone: [facility] 03-26-2020 22:17-0500 Pulse (Heart Rate) 98 /min Brie Moreno [employer] [facility], [place] 03-26-2020 21:43-0500 BP Diastolic 66 mm[Hg] Brie [employer] [facility] [place] , [place] 03-26-2020 21:43-0500 BP Systolic 99 mm[Hg] Brie [facility] , [place] 03-26-2020 21:43-0500 Pulse Oximetry 95 % Brie Josh [facility] , [place] 03-26-2020 20:50-0500 Respiratory Rate 16 /min Brie Moreno [employer] [facility] [place] 03-26-2020 20:13-0500 BMI (Body Mass Index) 40.14 kg/m2 Brie [employer] [facility], [place] 03-26-2020 20:13-0500 Body Temperature 98.2 [degF] Brie Moreno [employer] [facility] [place] 03-26-2020 20:13-0500 Body weight 102.78 kg Brie Moreno [facility] , [place] 02-15-2020 18:22-0500 BMI (Body Mass Index) 39.75 kg/m2 Brie [employer] [facility], [place] 02-15-2020 18:22-0500 Body Temperature 98.6 [degF] [facility] [place] 02-15-2020 18:22-0500 Body weight 101.79 kg rBie Moreno [employer] [facility] , [place] 02-15-2020 18:22-0500 BP Diastolic 78 mm[Hg] Brie Moreno [employer] [facility] , [place] 02-15-2020 18:22-0500 BP Systolic 127 mm[Hg] Brie [employer] [facility] , [place] 02-15-2020 18:22-0500 Height [address] [facility] , [place] 02-15-2020 18:22-0500 Pulse (Heart Rate) 92 /min Brie Moreno [facility], [place] 02-15-2020 18:22-0500 Pulse Oximetry 99 % Brie Moreno [facility] , [place] 02-15-2020 18:22-0500 Respiratory Rate 20 /min Brie Moreno [facility], [place] 11-20-2019 18:48-0400 BP Diastolic 75 mm[Hg] [facility], [place] 11-20-2019 18:48-0400 BP Systolic 128 mm[Hg] [facility], [place] 11-20-2019 18:48-0400 Pulse (Heart Rate) 83 /min [facility], [place] 11-20-2019 18:48-0400 Pulse Oximetry 97 % [facility], [place] 11-20-2019 18:48-0400 Respiratory Rate 18 /min [facility] [place] 11-20-2019 17:00-0400 BMI (Body Mass Index) 36.31 kg/m2 [facility] 11-20-2019 17:00-0400 Body Temperature 98.4 [degF] [facility] 11-20-2019 17:00-0400 Body weight 92.99 kg [facility] 11-03-2019 11:37-0400 BMI (Body Mass Index) 34.47 kg/m2 [facility], [place] 11-03-2019 11:37-0400 Body Temperature 98.71 [degF] [facility], [place] 11-03-2019 11:37-0400 Body weight 88.27 kg [facility], [place] 11-03-2019 11:37-0400 BP Diastolic 66 mm[Hg] [facility] 11-03-2019 11:37-0400 BP Systolic 117 mm[Hg] [facility] 11-03-2019 11:37-0400 Height 160 cm [facility], [place] 11-03-2019 11:37-0400 Pulse (Heart Rate) 87 /min [place] 11-03-2019 11:37-0400 Pulse Oximetry 99 % [facility] [place] 11-03-2019 11:37-0400 Respiratory Rate 20 /min [facility] [place] 08-13-2019 19:42-0400 BMI (Body Mass Index) 31 kg/m2 [facility] 08-13-2019 19:42-0400 Body Temperature 98.6 [degF] [facility] 08-13-2019 19:42-0400 Body weight 79.38 kg [facility] 08-13-2019 19:42-0400 Height 160 cm [facility] 08-13-2019 19:40-0400 BP Diastolic 60 mm[Hg] [facility] 08-13-2019 19:40-0400 BP Systolic 156 mm[Hg] [facility] 08-13-2019 19:40-0400 Pulse (Heart Rate) 138 /min [facility] 08-13-2019 19:40-0400 Pulse Oximetry 98 % [facility] 08-13-2019 19:40-0400 Respiratory Rate 16 /min [facility] 06-17-2019 12:45-0400 Respiratory Rate 18 /min [facility] 06-17-2019 07:54-0400 Body Temperature 97.81 [degF] [facility] 06-17-2019 07:54-0400 BP Diastolic 66 mm[Hg] [facility] 06-17-2019 07:54-0400 BP [facility]stolic 99 mm[Hg] [facility] 06-17-2019 07:54-0400 Pulse (Heart Rate) 82 /min [facility] 06-17-2019 07:54-0400 Pulse Oximetry 94 % [facility] 06-14-2019 08:15-0400 BMI (Body Mass Index) 32.92 kg/m2 [facility] 06-14-2019 08:15-0400 Body [facility] 06-14-2019 08:15-0400 Height 157.5 cm [facility] 06-14-2019 04:20-0400 Pulse (Heart Rate) 83 /min [facility] [place] [place] 06-14-2019 04:05-0400 BP Diastolic 58 mm[Hg] [facility] [place] [facility] [place] 06-14-2019 04:05-0400 BP Systolic 95 mm[Hg] [facility] [place] [facility] [place] 06-14-2019 04:05-0400 Pulse Oximetry 95 % [facility] [place] [facility] [place] 06-14-2019 01:12-0400 Respiratory Rate 18 /min [facility] [place] 06-14-2019 00:10-0400 Body Temperature 100.51 [degF] [facility] [place] 06-13-2019 22:00-0400 BMI (Body Mass Index) 32.31 kg/m2 [facility] [place] 06-13-2019 22:00-0400 Body weight 82.74 kg [facility] [place] [facility] [place] 06-13-2019 22:00-0400 Height 160 cm [facility] [place] [facility] [place] 04-28-2019 19:58-0500 Body Temperature 98.8 [degF] [facility] [place] 04-28-2019 19:58-0500 BP Diastolic 70 mm[Hg] [facility] [place] [facility] [place] 04-28-2019 19:58-0500 BP Systolic 98 mm[Hg] [facility] [place] [facility] [place] 04-28-2019 19:58-0500 Pulse (Heart Rate) 119 /min [facility] [place] 04-28-2019 19:58-0500 Pulse Oximetry 100 % [facility] [place] [facility] [place] 04-28-2019 19:58-0500 Respiratory Rate 30 /min [facility] [place] 04-28-2019 19:54-0500 BMI (Body Mass Index) 30.65 kg/m2 [facility] [place] 04-28-2019 19:54-0500 Body weight 78.47 kg [facility] [place] [facility] [place] 04-28-2019 19:54-0500 Height 160 cm [facility] [place] , [place] Encounters Encounter Date Encounter Type Care Provider Facility Start: 11-09-2023 End: 11-09-2023 ambulatory MARK ELIANA Not Available Start: 10-26-2023 End: 10-26-2023 ambulatory MARK ELIANA Not Available Start: 10-05-2023 End: 10-05-2023 ambulatory VIOLET JUAREZ [facility] Start: 10-05-2023 End: 10-05-2023 Subsequent hospital visit by physician Violet Juarez MD Work Phone: [id number] Start: 10-05-2023 End: 10-05-2023 Emergency department patient visit LINDA Vijaya [facility] Start: 10-05-2023 End: 10-05-2023 Emergency department patient visit [facility] Vijaya [facility] Start: 09-12-2023 End: 09-12-2023 ambulatory MARK ELIANA Not Available Start: 08-16-2023 End: 08-16-2023 ambulatory MARK ELIANA Not Available Start: 07-26-2023 End: 07-26-2023 ambulatory BLAKERADHA KAUFFMAN [facility] Start: 07-19-2023 End: 07-19-2023 ambulatory MARK ELIANA Not Available Start: 06-21-2023 End: 06-21-2023 ambulatory MARK ELIANA Not Available Start: 05-20-2023 End: 05-20-2023 ambulatory MARK ELIANA Not Available Start: 05-13-2023 End: 05-13-2023 Emergency department patient visit Jonathan Covarrubiase Facility[facility] Start: 05-13-2023 End: 05-13-2023 Emergency department patient visit Jonathan Martinez [facility] Start: 05-11-2023 End: 05-12-2023 Emergency department patient visit Zac Fields Facility:[facility] Start: 05-11-2023 End: 05-11-2023 Emergency department patient visit Zac Fields [facility] Start: 05-10-2023 End: 05-10-2023 Emergency department patient visit LINDA Vijaya SIL[facility] Start: 05-10-2023 End: 05-10-2023 Emergency department patient visit Chet Berumen Work Phone: [facility] ED Comment on above: Toothache (Primary D x); Dental decay Start: 12-27-2022 End: 12-27-2022 ambulatory MARK DUMONT [facility] Start: 11-23-2022 End: 11-23-2022 ambulatory MARK RAYRAY SALCEDOZIO [facility] Start: 09-04-2022 End: 09-04-2022 Emergency department patient visit Erin Lacy MD Work Phone: [facility] Comment on above: Sprain of right ankl e, unspecified ligament, initial encounter (Primary Dx) Start: 06-29-2022 End: 06-30-[address] MARK DUMONT . Facility: Start: 06-29-2022 End: 06-30-2022 ambulatory Linda Sheppard Facility:[facility] Start: 06-29-2022 End: 06-29-2022 Pain Management Todd Smart [facility] Start: 06-14-2022 End: 06-14-[address] MARK DUMONT . Facility:[facility] Start: 05-19-2022 End: 05-19-2022 Emergency department patient visit Erin Lacy MD Work Phone: [facility] Comment on above: Dry socket (Primary Dx) Start: 05-11-2022 End: 05-11-2022 Emergency department patient visit Anuj Quinn MD Work Phone: [facility] Comment on above: Masseter muscle spas m (Primary Dx); Other acute postprocedural pain Start: 03-30-[address] MARK DUMONT . Facili ty:[facility] Start: 03-29-2022 End: 03-29-2022 Subsequent hospital visit by physician [facility] Start: 10-12-2021 End: 10-12-2021 Emergency department patient visit Rishabh Mancini MD Work Phone: [facility] Comment on above: Acute bronchitis, un specified organism (Primary Dx) Start: 07-22-2021 End: 07-22-2021 Emergency department patient visit Clark Moser MD Work Phone: [facility] Comment on above: Acute pharyngitis, u nspecified etiology (Primary Dx) Start: 07-07-2021 ambulatory BRIE ROCA [facility] Ambulatory Start: 06-18-2021 ambulatory [facility] Start: 06-17-2021 End: 06-18-2021 ambulatory [facility] Start: 05-15-2021 End: 05-19-2021 ambulatory [facility] Start: 05-15-2021 End: 05-15-2021 Nutrition therapy Farhat Vang MD Work Phone: [facility] Comment on above: Morbid obesity with body mass index (BMI) of 40.0 or higher (HCC) Start: 05-14-2021 End: 05-18-2021 ambulatory [facility] Start: 05-14-2021 End: 05-14-2021 Office outpatient visit 15 minutes Farhat Vang MD Work Phone: [facility] Comment on above: Anxiety and depressi on (Primary Dx); At risk for obstructive sleep apnea; Chronic bilateral low back pain without sciatica; Hepatitis C antibody positive in blood; Body mass index 40.0-44.9, adult (HCC); History of opioid abuse (HCC) Start: 04-16-2021 End: 04-20-2021 ambulatory [facility] Start: 04-16-2021 End: 04-16-2021 Initial preventive medicine new pt age 18-39yrs Farhat Vang MD Work Phone: [facility] Comment on above: Encounter for genera l adult medical examination with abnormal findings (Primary Dx); Anxiety and depression; History of opioid abuse (HCC); Morbid obesity with body mass index (BMI) of 40.0 or higher (HCC) Start: 04-16-2021 End: 04-16-2021 Patient encounter status Farhat Vang MD Work Phone: [facility] Start: 03-23-2021 End: 03-23-2021 Emergency department patient visit Anuj Quinn MD Work Phone: [facility] Comment on above: COVID-19 (Primary Dx ); Omphalitis in adult Start: 02-16-2021 End: 02-20-2021 ambulatory [facility] Start: 02-12-2021 End: 02-16-2021 ambulatory [facility]YSIC[facility] Start: 02-10-2021 End: 02-14-2021 ambulatory [facility] Start: 02-02-2021 End: 02-06-2021 ambulatory PHYSICIAN [facility] Start: 01-15-2021 Documentation procedure Jeimy goodman [facility] Start: 01-15-2021 End: 01-15-2021 ambulatory HOLLAND WHIPPLE SETH [facility] Ambulatory Start: 01-15-2021 End: 01-15-2021 Office outpatient new 30 minutes Holland Ann MD Work Phone: [facility] Physicians [facility] Gastroenterology Comment on above: Hemorrhoids, unspeci fied hemorrhoid type Start: 12-29-2020 End: 01-02-2021 ambulatory PHYSICIAN [facility] Start: 12-27-2020 End: 12-27-2020 Emergency department patient visit Wayne Springer MD Work Phone: [facility] Comment on above: Viral syndrome (Prim prakash Dx) Start: 11-20-2020 End: 11-20-2020 Emergency department patient visit Anuj Quinn MD Work Phone: [facility] Comment on above: Strain of rhomboid m uscle, initial encounter; Chest wall muscle strain, initial encounter Start: 11-07-2020 End: 11-07-2020 Emergency department patient visit Nicholas Roger MD Work Phone: [facility] Comment on above: Viral URI (Primary D x) Start: 08-28-2020 End: 08-30-2020 Evaluation and management of inpatient [facility] Start: 08-25-2020 End: 08-25-2020 ambulatory PHYSICIAN [facility] Start: 07-29-2020 End: 08-02-2020 ambulatory PHYSICIAN [facility] Start: 07-22-2020 End: 07-26-2020 ambulatory [facility] ANGIE [facility] Start: 07-22-2020 End: 07-22-2020 Telemedicine consultation with patient Lelo Gallegos MD Work Phone: [facility] Nutritional Services Comment on above: Diet controlled gest ational diabetes mellitus (GDM) in third trimester Start: 07-10-2020 ambulatory LELO ADAMS [facility] Ambulatory Start: 07-09-2020 End: 07-09-2020 ambulatory ZELDA BAUTISTA [facility] Amb[facility] Start: 07-09-2020 End: 07-09-2020 Office outpatient visit 15 minutes Zelda Bautista CNP Work Phone: [facility] Endocrinology Physicians Comment on above: Diet controlled gest ational diabetes mellitus (GDM) in third trimester (Primary Dx) Start: 06-24-2020 End: 06-24-2020 Emergency department patient visit Anuj Quinn MD Work Phone: [facility] Comment on above: Acute frontal sinusi tis, recurrence not specified (Primary Dx) Start: 06-10-2020 End: 06-10-2020 Nutrition therapy Lelo Gallegos Work Phone: [facility] Nutritional Services Comment on above: Diet controlled gest ational diabetes mellitus (GDM) in second trimester Start: 06-09-2020 End: 06-09-2020 Office outpatient new 30 minutes Roslyn Stevenson MD Work Phone: [facility] Endocrinology Physicians Comment on above: Diet controlled gest ational diabetes mellitus (GDM) in second trimester Start: 05-27-2020 End: 05-31-2020 ambulatory PHYSICIAN [facility] Start: 05-21-2020 End: 05-25-2020 ambulatory PHYSICIAN [facility] Start: 03-26-2020 End: 03-26-2020 Emergency department patient visit Brie Moreno Work Phone: [facility] Comment on above: Atypical pneumonia ( Primary Dx) Start: 02-15-2020 End: 02-15-2020 Emergency department patient visit Brie Moreno Work Phone: [facility] Comment on above: Pain, dental (Primar y Dx); Acute gingivitis; Alveolar osteitis Start: 11-20-2019 End: 11-20-2019 Emergency department patient visit Anuj Quinn Work Phone: [facility] Comment on above: Bacterial vaginosis (Primary Dx); Trichimoniasis; Furuncle of left axilla Start: 11-03-2019 End: 11-03-2019 Emergency department patient visit Wayne Springer Work Phone: [facility] Comment on above: Poison arabella (Primary Dx) Start: 08-20-2019 End: 08-21-2019 Patient encounter procedure HODA CASSY [facility] Start: 08-20-2019 End: 08-20-2019 Subsequent hospital visit by physician [facility] Start: 08-13-2019 End: 08-13-2019 Emergency department patient visit Christian Martinez Work Phone: [facility] Emergency Department Comment on above: Heroin abuse (HCC) ( Primary Dx) Start: 06-20-2019 End: 06-20-2019 Patient encounter procedure Alisa Palencia Work Phone: [facility] Comment on above: Hepatitis C virus in fection without hepatic coma, unspecified chronicity (Primary Dx) Start: 06-18-2019 End: 06-18-2019 Documentation procedure Taryn Torres [facility] Start: 06-18-2019 Follow-up encounter Taryn Cartagena [facility] Comment on above: Transition Of Care Start: 06-18-2019 End: 06-18-2019 Patient encounter procedure Taryn Kike Choe [facility] Start: 06-14-2019 End: 06-17-2019 Evaluation and management of inpatient [facility] Work Phone: [facility] Comment on above: Elevated LFTs; IVDA (intravenous drug abuse) complicating (HCC) Start: 06-13-2019 End: 06-14-2019 Emergency department patient visit Brie Moreno Work Phone: [facility] Comment on above: Abdominal pain, unsp ecified abdominal location (Primary Dx); Urinary tract infection with hematuria, site unspecified; Viral hepatitis without hepatic coma, unspecified chronicity, unspecified viral hepatitis type; Polysubstance abuse (HCC); Hyperbilirubinemia Start: 04-28-2019 End: 04-28-2019 Emergency department patient visit Roslyn Keating Work Phone: [facility] Comment on above: Accidental overdose of heroin, initial encounter (HCC) (Primary Dx) Start: 12-20-2016 End: 01-02-2020 Cancer cervix - screening done Lelo Gallegos MD Work Phone: [facility] Start: 12-20-2016 End: 01-02-2020 Encounter for gynecological examination (general) (routine) without abnormal findings Jeimy Tan [employer] [facility] Procedures Date Procedure Procedure Detail Performing [...] Work Phone: Start: 06-09-2020 Hemoglobin glycosylated a1c Lleo Gallegos MD Work Phone: Start: 03-26-2020 COVID- [...] [Mass/ volume] in Serum or Plasma Indra Handylivan Work Phone: Start: 06-14-2019 Bilirubin.direct [Mass/volume] in Serum or Plasma Indra Castro Edmond Work Phone: Start: 06-14-2019 Complete blood count with white cell differential, automated Indra Handylivan Work Phone: Start: 06-14-2019 Complete blood count with white cell differential, manual Indra Handylivan Work Phone: Start: 06-14-2019 Comprehensive metabo lic 2000 panel - Serum or Plasma Indra Castro Edmond Work Phone: Start: 06-14-2019 Hepatitis panel measurement Indra Castro Edmond Work Phone: Start: 06-14-2019 INR in Platelet poor plasma by Coagulation assay Indra Castro Edmond Work Phone: Start: 06-14-2019 Lactate [Moles/volum e] in Serum or Plasma Indra Matthew Pruitt Work Phone: Start: 06-14-2019 Manual Differential panel - Blood Indra Handylivan Work Phone: Start: 06-14-2019 Red blood cell morphology Indra Castro Edmond Work Phone: Start: 06-14-2019 Salicylates [Mass/vo lume] in Serum or Plasma Indra Castro Edmond Work Phone: Start: 06-14-2019 US scan of upper abdomen Indra Castro Edmond Work Phone: Start: 06-13-2019 Ct abdomen & pelvis w/contrast material Kavitha Josh Work Phone: Start: 06-13-2019 Urinalysis microscopic only [...] 2) Shingles Vaccine (1 of 2) [facility]- [place], [place] Start: 12-29-2025 Screening for malignant neoplasm of cervix Pap Smear [facility] Start: 10-31-2024 Screening for malignant neoplasm of cervix Pap Smear [facility] Start: 12-30-2023 Screening for malignant neoplasm of cervix [facility] Start: 11-11-2023 Respiratory Syncytial Virus (RSV) or age 60 yrs+ (1 - Risk 1-dose series) Respiratory Syncytial Virus (RSV) or age 60 yrs+ (1 - Risk 1-dose series) [facility] Start: 11-10-2023 End: 11-10-2023 Patient encounter procedure 11/10/2023 10:00 AM EDT Routine [facility] [address] [place] [address] [facility] Start: 10-27-2023 End: 10-27-2023 Patient encounter procedure 10/27/2023 10:00 AM EDT Routine [facility] [address] [place] [address] [facility] Start: 10-13-2023 End: 10-13-2023 Patient encounter procedure 10/13/2023 10:00 AM EDT Routine [facility] [address] [facility] [address] [place] [address] Return in about 2 weeks (around 10/04/2023) for twins, dopplers, growth, transvag. [facility] Comment on above: Return in about 2 weeks (around ) for twins, dopplers, growth, transvag. Start: 10-07-2023 Tdap Vaccine during Tdap Vaccine during [facility] Start: 10-06-2023 Influenza vaccination Flu vaccine (#1) [facility] Start: 10-31-2022 Screening for malignant neoplasm of cervix [facility] Work Phone: Start: 10-05-2022 Influenza vaccination Flu vaccine (#1) [facility] Start: 04-16-2022 History and physical examination, annual for health maintenance Wellness Visit [facility] Start: 02-13-2022 Depression Remission Assessment (PHQ9) Depression Remission Assessment (PHQ9) [facility] Start: 12-29-2021 History and physical examination, annual for health maintenance Wellness Visit [facility] Start: 11-12-2021 End: 11-12-2021 Patient encounter procedure 11/12/2021 Office Visit Primary Care Farhat Vang MD [address] [address] [facility] Physicians Start: 11-05-2021 Influenza vaccination [facility] Start: 10-05-2021 Influenza vaccination Flu vaccine (#1) [facility] Start: 06-26-2021 End: 06-26-2021 Nutrition therapy 06/26/2021 Nutrition Nutrition Farhat Vang MD [address] [facility] [address] [place] [address] [facility] Start: 05-15-2021 End: 05-15-2021 Nutrition therapy 05/15/2021 Nutrition Nutrition Angelito Harvey RD [facility] Start: 05-14-2021 End: 05-14-2021 Patient encounter procedure 05/14/2021 Office Visit Primary Care Farhat Vang MD [address] [facility] [address] [place] [address] [facility] Start: 03-17-2021 Depression screening using PHQ-9 (Patient Health Questionnaire 9) score Depression Screening (PHQ9) [facility] Start: 01-15-2021 Depression Remission Assessment (PHQ9) Depression Remission Assessment (PHQ9) [facility] Start: 01-09-2021 Hemoglobin A1c measurement A1C [facility] Start: 12-09-2020 HbA1c (Bld) [Mass fraction] A1C [facility] Start: 12-09-2020 Hemoglobin A1c measurement A1C [facility] Start: 11-05-2020 Influenza vaccination [facility] Start: 10-31-2020 History and physical examination, annual for health maintenance Wellness Visit [facility] Start: 08-28-2020 End: 08-28-2020 Admission to same day surgery center 08/28/2020 Surgery Obstetrics Roslyn Stevenson MD [address] [place] [address] [phone] SECTION [facility] Labor [facility] Delivery Comment on above: SECTION Start: 08-28-2020 Subsequent hospital visit by physician 08/28/2020 Hospital Encounter Obstetrics Roslyn Stevenson MD [address] [place] [address] [phone] [facility] Start: 08-25-2020 End: 08-25-2020 Office Visit 08/25/2020 Office Visit Endocrinology Zelda Bautista, MANAGER CANCER [address] [place] [address] [phone] [facility] Start: 07-31-2020 End: 07-31-2020 Office Visit 07/31/2020 Office Visit Endocrinology Benito Krueger, MARK [address] [place] [address] [phone] [facility] Start: 07-29-2020 End: 07-29-2020 Patient encounter procedure 07/29/2020 Routine Obstetrics and Gynecology Regla Dias CNM [address] [place] [id number] [facility] Start: 07-22-2020 End: 07-22-2020 Telemedicine consultation with patient 07/22/2020 Telemedicine Nutrition Lelo Gallegos MD [address] [place] [address] [phone] [facility] Start: 07-17-2020 End: 07-17-2020 Patient encounter procedure 07/17/2020 Routine Obstetrics and Gynecology Yvonne Santos MD [address] [place] [address] [facility] [employer] [facility] Start: 07-09-2020 End: 07-09-2020 Office Visit 07/09/2020 Office Visit Endocrinology Zelda Bautista, MANAGER CANCER [address] [place] [address] [phone] [facility] Phys[facility] Start: 07-04-2020 End: 07-04-2020 Patient encounter procedure 07/04/2020 Routine Obstetrics and Gynecology Radha Pantoja MD [address] [place] [phone] [facility] [employer] [facility] Start: 06-26-2020 End: 06-26-2020 Patient encounter procedure 06/26/2020 Office Visit Endocrinology Janie Chen PA-C [address] [place] [address] [phone] [facility] Start: 06-24-2020 End: 06-24-2020 Nutrition [facility] Start: 06-19-2020 End: 06-19-2020 Routine 06/19/2020 Routine Obstetrics and Gynecology Larissa, Regla Arriaga CNM [address] [place] [phone] [facility] [facility] Start: 05-17-2020 Depression screening using PHQ-9 (Patient Health Questionnaire 9) score Depression Screening (PHQ9) [facility] Start: 2020 Screening for malignant neoplasm of cervix [facility] Start: 02-26-2020 End: 02-26-2020 Initial 02/26/2020 Initial Obstetrics and Gynecology Jia Huerta MD [address] [facility] [address] [place] [address] [facility] [place] [employer] Start: 11-06-[address] [facility] [place] Start: 11-06-2019 Influenza vaccination given [facility] Start: 08-06-2019 Screening for malignant neoplasm of cervix Pap Smear [facility] Start: 06-20-2019 End: 06-20-2019 Office Visit 06/20/2019 Office Visit Transition of Care Alisa Palencia, MANAGER CANCER [address] [facility] [address] [place] [address] [phone] [facility] Start: 11-05-2018 Influenza vaccination Flu vaccine (#1) [place], [place] Start: 11-05-2018 Influenza vaccination given Sequential Influenza Vaccine (#1) [facility] Start: 03-21-2015 Cervical cancer screen Cervical cancer screen [place], [place] Start: 03-21-2015 Screening for malignant neoplasm of cervix Cervical cancer screen [place] Start: 04-05-2014 Screening for malignant neoplasm of cervix Pap smear [facility] Start: 2009 DTaP/Tdap/Td vaccine (1 - Tdap) DTaP/Tdap/Td vaccine (1 - Tdap) [place] Start: 2009 Hepatitis B vaccine (1 of 3 - Risk 3-dose series) Hepatitis B vaccine (1 of 3 - Risk 3-dose series) [facility] Work Phone: Start: 2008 Hepatitis C screening Hepatitis C screen [facility] Start: 2006 COVID-19 Vaccine (1) COVID-19 Vaccine (1) [facility] Start: 2005 HIV screen HIV screen [place], [place] Start: 2005 HIV screening HIV screen [facility] Start: 2002 COVID-19 Vaccine (1) COVID-19 Vaccine (1) [facility] Start: 2002 Depression Monitoring Depression Monitoring [facility] Start: 2001 DTaP/Tdap/Td vaccine (1 - Tdap) DTaP/Tdap/Td vaccine (1 - Tdap) [place] Start: 2001 DTaP/Tdap/Td vaccine (5 - Tdap) DTaP/Tdap/Td vaccine (5 - Tdap) [facility] Start: 2000 Albumin DL <= 20 mg/L (U) [Mass/Vol] Urine Microalbumin [facility] Start: 2000 Diabetic foot examination Foot Exam [facility] Start: 2000 Microalbumin measurement, urine, quantitative Urine Microalbumin [facility] Start: 2000 Ophthalmic examination and evaluation Ophthalmology Exam [facility] Start: 1996 Pneumococcal 0-64 years Vaccine (1 of 1 - PPSV23) Pneumococcal 0-64 years Vaccine (1 of 1 - PPSV23) [place] Start: 1996 Pneumococcal Vaccine: Ped or At-Risk (1 of 2 - PPSV23) Pneumococcal Vaccine: Ped or At-Risk (1 of 2 - PPSV23) [facility] Start: 1995 COVID-19 Vaccine (1) COVID-19 Vaccine (1) [facility] Start: 1993 History and physical examination, annual for health maintenance Wellness Visit [facility] Start: 1991 Varicella vaccine (1 of 2 - 2-dose childhood series) Varicella vaccine (1 of 2 - 2-dose childhood series) [facility] Start: 1990 COVID-19 Vaccine (#1) COVID-19 Vaccine (#1) [facility] Start: 1990 Hepatitis B vaccine (1 of 3 - 3-dose series) Hepatitis B vaccine (1 of 3 - 3-dose series) [facility] Start: 1990 Hepatitis C screening Hepatitis C screen [facility] Start: 1990 Tetanus vaccination Tetanus: Every 10yrs [facility] Anti smooth muscle antibody IgA level Anti-Smooth Muscle Antibody Lab Add-On 06/15/2019 1:50 PM EDT [facility] Antimitochondrial antibody titer Antimitochondrial Antibody Lab Add-On 06/15/2019 1:50 PM EDT [facility] End: 11-20-2019 C.trachomatis N.gonorrhoeae DNA, Urine C.trachomatis N.gonorrhoeae DNA, Urine Microbiology STAT One Time for 1 Occurrences starting 11/20/2019 until 11/20/2019 [place] Comment on above: One Time for 1 Occurrences starting 11/05 until 11/20/2019 C.trachomatis N.gonorrhoeae DNA, Urine C.trachomatis N.gonorrhoeae DNA, Urine Microbiology Stat [employer] Label print 11/20/2019 5:55 PM EDT [place] End: 03-26-2020 Covid-19 Ambulatory Covid-19 Ambulatory Lab Routine Once for 1 Occurrences starting 03/26/2020 until 03/26/2020 [place] Comment on above: Once for 1 Occurrences starting 03/26/19 21 until 03/26/2020 Covid-19 Ambulatory Covid-19 Amb ulatory Lab Routine 03/26/2020 8:44 PM EST [place] End: 06-13-2019 Culture, Blood 1 Culture, Blood 1 Microbiology STAT One Time for 1 Occurrences starting 06/13/2019 until 06/13/2019 [place] Comment on above: One Time for 1 Occurrences starting 10/2019 until 06/13/2019 Culture, Blood 1 [place], [place] End: 03-23-2021 Culture, Wound [facility] Work Phone: Comment on above: One Time for 1 Occurrences starting 03/07 until 03/23/2021 Cytomegalovirus DNA assay CMV DN A Detection and Quant, Blood Lab Routine 06/15/2019 1:50 PM EDT [facility] Kirsten-Hazel Virus P CR, Quantitative Kirsten-Hzael Virus PCR, Quantitative Lab Routine 06/15/2019 1:50 PM EDT [facility] End: 04-16-2022 Hemoglobin A1c/Hemoglobin.total in Blood Hemoglobin A1c Lab Routine Encounter for general adult medical examination with abnormal findings 1 Occurrences starting 04/16/2021 until 04/16/2022 [facility] Work Phone: Comment on above: 1 Occurrences starting 04/16/2021 until 04/16/2022 Hemoglobin A1c/Hemoglobin.total in Blood Hemoglobin A1c Lab Routine Encounter for general adult medical examination with abnormal findings 04/16/2021 10:58 AM [facility] End: 04-16-2022 Hepatitis C antibody measurement Hepatitis C Antibody Lab Routine Encounter for general adult medical examination with abnormal findings 1 Occurrences starting 04/16/2021 until 04/16/2022 [facility] Comment on above: 1 Occurrences starting 04/16/2021 until 04/16/2022 Hepatitis C antibody measurement Hepatitis C Antibody Lab Routine Encounter for general adult medical examination with abnormal findings 04/16/2021 10:58 AM [facility] MDI Treatment MDI Treatment Re spiratory Care Routine Every 6hr As Needed until discontinued starting 03/26/2020 [place] Comment on above: Every 6hr As Needed until discontinued s tarting 03/26/2020 Nonrebreather mask oxygen Nonreb reather mask oxygen Respiratory Care Routine As Needed until discontinued starting 10/05/2023 [facility] Comment on above: As Needed until discontinued starting Nuclear Ab IF (S) [Titer] KENIA La b Add-On 06/15/2019 1:50 PM EDT [facility] End: 06-24-2020 Urinalysis, reflex to microscopic Urinalysis, reflex to microscopic Lab STAT One Time for 1 Occurrences starting 06/24/2020 until 06/24/2020 [employer] Work Phone: Comment on above: One Time for 1 Occurrences starting 06/06 until 06/24/2020 End: 05-14-2022 XR Lumbar Spine Complete AP/Lat w Obls XR Lumbar Spine Complete AP/Lat w Obls Imaging Routine Chronic bilateral low back pain without sciatica 1 Occurrences starting 05/14/2021 until 05/14/2022 [employer] Work Phone: Comment on above: 1 Occurrences starting 05/14/2021 until 05/14/2022 Payers Date Payer Category Payer Medicaid [employer] [id number] 2021-Present [phone] [address] [place] [address] [id number] 2021 Unknown [id number]. [id number] 2017 Medicaid [id number] [id number]. [id number] 2012 Medicaid [id number]. [id number] 2012 Medicaid [id number] 2008 Private Health Insurance [id number] 1990 Unknown [id number] 2.16.840.1.255741.3.579.2. 173 1990 Unknown [id number] 2.16.840.1.205671.3.579.2. 900 1990 Unknown [id number] 2.16.840.1.346394.3.579.2. 900 1990 Unknown [id number] 2.16.840.1.289572.3.579.2. 900 1990 Unknown [id number] 2.16.840.1.562563.3.579.2. 900 1990 Unknown [id number] 2.16.840.1.112183.3.579.2. 900 1990 Unknown [id number] 2.16.840.1.437553.3.579.2. 900 1990 Unknown [id number] 2.16.840.1.772643.3.579.2. 900 1990 Unknown [id number] 2.16.840.1.493882.3.579.2. 903 1990 Unknown [id number] 2.16.840.1.527160.3.579.2. 903 1990 Unknown [id number] 2.16.840.1.995833.3.579.2. 903 1990 Unknown [id number] 2.16.840.1.133612.3.579.2. 903 1990 Unknown [id number] 2.16.840.1.515953.3.579.2. 903 1990 Unknown [id number] 2.16.840.1.126602.3.579.2. 903 1990 Unknown [id number] 2.16.840.1.058656.3.579.2. 903 1990 Unknown [id number] 2.16.840.1.570071.3.579.2. 903 1990 Unknown [id number] 2.16.840.1.171574.3.579.2. 903 1990 Unknown [id number] 2.16.840.1.691975.3.579.2. 903 1990 Unknown [id number] 2.16.840.1.815195.3.579.2. 903 1990 Unknown [id number] 2.16.840.1.321397.3.579.2. 903 1990 Unknown [id number] 2.16.840.1.800938.3.579.2. 903 1990 Unknown [id number] 2.16.840.1.658765.3.579.2. 903 1990 Unknown [id number] 2.16.840.1.735420.3.579.2. 903 1990 Unknown [id number] 2.16.840.1.559566.3.579.2. 593 1990 Unknown [id number] 2.16.840.1.917660.3.579.2. 593 1990 Unknown [id number] 2.16.840.1.594212.3.579.2. 593 1990 Unknown [id number] 2.16.840.1.378843.3.579.2. 593 1990 Unknown [id number] 2.16.840.1.221338.3.579.2. 727 1990 Unknown [id number] 2.16.840.1.378255.3.579.2. 727 1990 Unknown [id number] 2.16.840.1.465068.3.579.2. 727 1990 Unknown [id number] 2.16.840.1.624312.3.579.2. 174 1990 Unknown [id number] 2.16.840.1.875897.3.579.2. 174 1990 Unknown [id number] 2.16.840.1.374391.3.579.2. 174 1990 Unknown [id number] 2.16.840.1.690926.3.579.2. 174 1990 Unknown [id number] 2.16.840.1.574280.3.579.2. 174 1990 Unknown [id number] 2.16.840.1.962216.3.579.2. 1259 1990 Unknown [id number] 2.16.840.1.817877.3.579.2. 1259 1990 Unknown [id number] 2.16.840.1.557081.3.579.2. 1259 1990 Unknown [id number] 2.16.840.1.764843.3.579.2. 1259 1990 Unknown [id number] 2.16.840.1.400864.3.579.2. 1259 1990 Unknown [id number] 2.16.840.1.628296.3.579.2. 1259 1990 Unknown [id number] 2.16.840.1.467433.3.579.2. 1259 1990 Unknown [id number] 2.16.840.1.879841.3.579.2. 175 1990 Unknown [id number] 2.16.840.1.337225.3.579.2. 175 1990 Unknown [id number] 2.16.840.1.207264.3.579.2. 175 1959 Unknown [id number] Social History Date Type Detail Facility Start: 04-28-2019 End: 11-03-2019 Tobacco smoking status NHIS Current every day smoker [place] End: 02-15-2020 History of tobacco use Cigarette Smoker [place] Start: 04-28-2019 End: 10-05-2023 Cigarettes smoked current (pack per day) - Reported [facility] Start: 04-28-2019 Alcohol intake Current drinke r of alcohol (finding) [place], [place] Start: 1990 Sex Assigned At Not on file [place], [place] Start: 06-13-2019 End: 10-05-2023 Alcohol intake Ex-drinker (finding) [facility] Exposure to SARS-CoV -2 (event) Unable to assess [facility] [place] Start: 05-18-2019 End: 04-16-2021 History SDOH Alcohol Frequency 3 [facility] Start: 05-18-2019 End: 07-16-2020 History SDOH Alcohol Std Drinks 5 [facility] Start: 05-04-2021 End: 05-19-2022 Exposure to SARS-CoV-2 (event) Not sure [facility] Start: 11-20-2019 End: 07-26-2023 Tobacco use and exposure Never used Post-A-Vox- [facility]ILY[facility] Start: 06-09-2020 End: 07-26-2023 Tobacco smoking status NHIS Former smoker [facility] End: 02-15-2020 History of tobacco use Current smoker [facility] Start: 12-09-2019 [facility] Start: 04-16-2021 History SDOH Social Connections Get Together 4 [facility] Start: 04-16-2021 History SDOH Food Worry 1 [facility] Start: 09-04-2022 End: 10-05-2023 Sex Assigned At Female [facility] Start: 09-04-2022 History SDOH Alcohol Frequency 2 [email or web address] How often to you hav e a drink containing alcohol? Monthly or less [email or web address] Average Number of Drinks Not on file [email or web address] How often to you hav e a drink containing alcohol? Never [facility] Procedure Code Equipment Code Equipment Origin al Text Equipment Identifier Dates Use to check BG QID Dx O24.14 . [id number] Start: 06-09-2020 Use as instructe d to check BG QID Dx O24.14 . [id number] Start: 06-09-2020 End: 06-11-2020 use to test BLOO D SUGAR FOUR TIMES DAILY [id number] Start: 06-09-2020 Goals Date Patient Goal Desired Activity /State Functional Status Date Assessment Result Facility 05-13-2023 Functional Status N/A [facility] 05-11-2023 Functional Status N/A [facility] 06-29-2022 Functional Status N/A [facility] Clinical Notes 06-09-2020 to 05-13-2023 Note Date [...] Follow these instructions at home: Medicines Take ktiv-xxi-adnvaxo and prescription medicines only as told by [...] provider. Document Revised: 04/30/2021 Document Reviewed: 04/30/2021 [employer] Patient Education 2022 [employer] Follow Up Care 05/13/2023 11:20:07 With:Molcure Address: [facility] [place] [address]- Business (1) When:05/16/2023 12:45:32 Comments:Dentistry follow-up [facility] 05-12-2023 Hospital Discharg e instructions Patient Education 05/11/2023 23:33:09 Dental Pain, Fatx-ik-Xxve Dental Pain Dental pain is often a [...] Follow these instructions at home: Medicines Take xgfh-cqj-dwdjjlx and prescription medicines only as told by [...] damage to the area. Brushing your teeth Drake your teeth twice a day using a [...] only when you eat or drink. Take achq-tho-dgidazl and prescription medicines only as told by your dentist. Watch your dental pain for any changes. Let your dentist know if symptoms get worse. This information is not intended to replace advice given to you by your health care provider. Make sure you discuss any questions you have with your health care provider. Document Revised: 11/26/2020 Document Reviewed: 11/26/2020 [employer] Patient Education 2022 [employer]. Follow Up Care 05/11/2023 21:26:40 With:Linda Sheppard DO Address: [facility] [address], [facility] C, [facility] [address] [place] [address]- When:05/14/2023 [facility] 05-11-2023 Evaluation + Plan note Extrac roxann from: Title:ED Note Author:Violet Walters PA-C ate:05/11/23 1. Pain, dental (K08.89: Oth er specified disorders of teeth and supporting structures) Ordered: amoxicillin-clavulanate, = 1 tab(s), Oral, q12hr, X 7 day(s), # 14 tab(s), Refills(s) 0, Pharmacy: [facility], 160, cm, 05/11/23 21:53:00 EST, Height/Length Dosing, 110, kg, 05/11/23 21:53:00 EST, Weight Dosing chlorhexidine topical, 0.018 gm, 15 mL, Oral, BID, 480 mL, Refill(s) 0, (swish and spit; do not swallow), [facility], 160, cm, 05/11/23 21:53:00 EST, Height/Length Dosing, 110, kg, 05/11/23 21:53:00 EST, Weight Dosing 2. Infected dental caries (K02.9: Dental caries, unspecified) Ordered: amoxicillin-clavulanate, = 1 tab(s), Oral, q12hr, X 7 day(s), # 14 tab(s), Refills(s) 0, Pharmacy: [facility], 160, cm, 05/11/23 21:53:00 EST, Height/Length Dosing, 110, kg, 05/11/23 21:53:00 EST, Weight Dosing chlorhexidine topical, 0.018 gm, 15 mL, Oral, BID, 480 mL, Refill(s) 0, (swish and spit; do not swallow), [facility], 160, cm, 05/11/23 21:53:00 EST, Height/Length Dosing, 110, kg, 05/11/23 21:53:00 EST, Weight Dosing 3. First trimester (Z34.91: Encounter for supervision of normal , unspecified, first trimester) Periapical abscess without sinus (K04.7: Periapical abscess without sinus) Orders: ketorolac, 30 mg = 1 mL, Injection, IntraMuscular, Once, Stop date 05/11/23 23:31:00 EST, STAT, Start date 05/11/23 23:31:00 EST, 05/11/23 23:31:00 EST [facility]03-05-2024 Hospital Discharge instructions* Discharge Instructions* Chet Berumen DO - 05/10/2023 11:50 AM EST Use amoxicillin as prescribed. Use Tylenol as needed for pain. Follow-up with dentist as soon as possible. * Attachments The following attachments cannot be sent through Care Everywhere. * Tooth Decay (Thai) * Tooth and Gum Pain (Thai) documented [facility] History of Present illness Narrative* Angelito Harvey, [...] Supplements: Reviewed Current Outpatient Medications Ordered in [facility] Medication Sig Dispense Refill baclofen (LIORESAL) 10 [...] mg by mouth daily . No current [facility]-ordered facility-administered medications on file. Lab Results Component [...] - 6-7 PM- crock pot meals- goulash; Cuban chicken; spicy rice with chicken and beans; [...] calorie goals/day. Estimated Nutritional Needs: Calorie Needs: 1780-4707 kcals/day (MSJ x 1.3AF -500-1000 to promote gradual weight loss) Patient/Family Education: Learner: family and patient Readiness: action - ready to set action plan and implement goals Barriers to Learning: none Method: explanation and handout Response: verbalizes understanding Expected Adherence: good Education Materials Provided: Healthy Meal Planning handout ([facility]), Goal Sheet, 1,544-Zpyegup9-Ezz Menus (NCM), 1,800-Calorie 5-Day Menus (NCM), Weight Loss Tips ([facility]) Monitoring/Evaluation: Lab results, weight, food recall, meal planning, goal achievement, physical activity, medication management. This documentation has been sent to the referring healthcare provider. Angelito Harvey RDN, ZAHRA Personal Office documented in this [id number] History of Present illness Narrative* Narcis Dawit Papadopol, MD - 05/14/2021 10:43 AM EST Subjective [...] C hepatitis virus. Patient was referred to quantitative analyst developer and the recommendation was made for a [...] improve, for Follow Up. documented in this [id number] History of Present illness Narrative* Farhat Vang [...] current medications that are prescribed by her clinical rehabilitation specialist. She has 4 children at home [...] Not difficult at all documented in this [id number] History of Present illness Narrative* Holland Ann [...] SECTION; Surgeon: Roslyn Stevenson MD; Location: [facility]; Service: OBGYN SECTION, LOW TRANSVERSE 3 Social [...] Friends and Family: Not on file Attends Anabaptism Services: Not on file Active Member of [...] Report 12/29/2020 Final Value:Gynecologic Cytology Report Case: [id number] Authorizing Provider: Germania Valentino, Collected: 12/29/2020 11:09 AM MANAGER CANCER Ordering Location: [facility] [employer] - An Received: 12/30/2020 12:03 PM [facility] First Screen: Violet Craig Rescreen: Talya [...] from every slide are reviewed by a patient clerical assistant. Specimen processing and Primary Screening performed at: [facility] [address] [place] [address] HPV Results 12/29/2020 Final Value:This result contains [...] physician. Holland Ann MD documented in this [id number] History of Present illness Narrative* Jeimy Tan LPN - 01/15/2021 11:17 AM EST This nurse acted as a family independence case manager for a rectal exam by Dr. Ann for Tia. Tia verbalized consent to be examined, appeared comfortable and tolerated the exam well. documented in this [id number] History of Present illness Narrative* Neris Ulloa, [...] oatmeal packet. Snack celery + PB or Gibraltarian yogurt or green peppers. Lunch - will be light if full from snack and may have an early dinner. Dinner - pork chops, steamed vegetables. Snack - Gibraltarian yogurt or vegetables or watermelon. Beverages - [...] prescription for Current Outpatient Medications Ordered in [facility] Medication Sig Dispense Refill blood sugar diagnostic [...] BLOOD SUGAR FOUR TIMES DAILY No current [facility]-ordered facility-administered medications on file. SMBG Results: 86-163. [...] the referring healthcare provider. documented in this [id number] Instructions* Patient Instructions* Zelda Bautista CNP - [...] to renew/prescribe testing supplies. documented in this [id number] History of Present illness Narrative* Zelda Bautista [...] visit with us. The patient did bring [employer] sugar meter with her for download today however there is not many readings on it. She states she started a new job at [employer] and does noise get breaks to check [...] 4. Patient to cont. To follow with rackman 5. Patient will require 2 hour 75 gram OGTT 8-12 weeks after delivery. 6. Follow-up in 2 weeks. Risks and potential complications of diabetes were reviewed with the patient. Electronically signed by Zelda MARIN 07/09/2110:03 AM documented in this [id number] History of Present illness Narrative* Lelo Gallegos [...] month during . While awaiting appointment with rackman, patient provided with details of GDM diet, [...] 1 hour post prandial. 4. Referral to rackman 5. Patient will require 2 hour 75 gram OGTT 8-12 weeks after delivery. 6. Follow-up in 2 weeks. Risks and potential complications of diabetes were reviewed with the patient. documented in this encounterNew YorkHealthEvaluation + Plan note No data available for this section [facility] Diagnosis Diet controlled gestational diabetes mellitus (GDM) in second trimester [facility] Diagnosis Acute frontal sinusitis, recurrence not specified- Primary documented in this encounter [employer] Phone: evaluation note* Diagnosis Diet controlled gestational diabetes mellitus (GDM) in third trimester- Primary [facility]* Diagnosis Diet controlled gestational diabetes mellitus (GDM) in third trimester [facility]* Diagnosis Viral URI- Primary Acute upper respiratory infections of unspecified site documented in this encounter [employer] Phone: evaluation note* Diagnosis Strain of rhomboid muscle, initial encounter Chest wall muscle strain, initial encounter documented in this encounter [employer] Phone: evaluation note* Diagnosis Viral syndrome- Primary Unspecified viral infection, in conditions classified elsewhere and of unspecified site documented in this encounter [employer] Phone: evaluation note* Diagnosis Hemorrhoids, unspecified hemorrhoid type [facility] Diagnosis COVID-19- Primary Omphalitis in adult Unspecified local infection of skin and subcutaneous tissue documented in this encounter [employer] Phone: evaluation note* Diagnosis Encounter for general adult medical examination with abnormal findings- Primary Anxiety and depression History of opioid abuse (HCC) Morbid obesity with body mass index (BMI) of 40.0 or higher (HCC) [facility] Diagnosis Anxiety and depression- Primary At risk for obstructive sleep apnea Chronic bilateral low back pain without sciatica Hepatitis C antibody positive in blood Body mass index 40.0-44.9, adult (HCC) Body Mass Index 40.0-44.9, adult History of opioid abuse (HCC) [facility] Diagnosis Morbid obesity with body mass index (BMI) of 40.0 or higher (HCC) documented in this encounter [facility]* Diagnosis Acute pharyngitis, unspecified etiology- Primary documented in this encounter [employer] Phone: evalytecvf note* Diagnosis Acute bronchitis, unspecified organism- Primary documented in this encounter [employer] Phone: evaluation note* Diagnosis Masseter muscle spasm- Primary Spasm of muscle Other acute postprocedural pain documented in this encounter [employer] Phone: evaluation note* Diagnosis Dry socket- Primary Alveolitis of jaw documented in this encounter [employer] Phone: evaluation note* Diagnosis Sprain of right ankle, unspecified ligament, initial encounter- Primary documented in this encounter [facility]* Diagnosis Toothache- Primary Unspecified disorder of the teeth and supporting structures Dental decay Unspecified dental caries [facility]* Diagnosis 26 weeks gestation of - Primary state, incidental documented in this [facility]* Instructions* Anuj Quinn MD - 06/24/2020 Although many ihau-ssi-zgwgcfx cough cold flu sinus medications are safe in , I would contact her [facility]MER [facility] SEAMER office in [facility] to verify what your [employer]AGRAMMER AND SEAMER group feels a safe in . Tylenol [...] be sent through Care Everywhere. * Sinusitis (Thai) documented [facility] Phone: Hospital Discharge instructions* Attachments The following attachments cannot be sent through Care Everywhere. * URI (Upper Respiratory Infection) (Thai) documented in [facility] Phone: Hospital Discharge instructions* Attachments The following attachments cannot be sent through Care Everywhere. * Muscle Strain (Thai) documented [facility] Phone: Hospital Discharge instructions* Attachments The following attachments cannot be sent through Care Everywhere. * Viral Infections (Thai) documented in [facility] Phone: Hospital Discharge instructions* Attachments The following attachments cannot be sent through Care Everywhere. * Coronavirus Disease (COVID-19): General Info (Thai) * Coronavirus Disease (COVID-19): Isolation (Thai) * Piercing: Infection (Thai) documented in this [facility] Phone: Hospital Discharge instructions* Instructions* Clark Moser MD - 07/22/2021 Use Tylenol or Motrin for pain. Take amoxicillin twice a day. Amoxicillin treats strep throat, ear infections, bronchitis and pneumonia. Call primary care doctor for close follow-up. * Attachments The following attachments cannot be sent through Care Everywhere. * Sore Throat (Thai) [facility] [employer] Phone: spital Discharge instructions* Attachments The following attachments cannot be sent through Care Everywhere. * Bronchitis (Thai) documented in this [facility] Phone: spital Discharge instructions* Attachments The following attachments cannot be sent through Care Everywhere. * Cramp: Muscle (Thai) * Pain Post-Surgery: Acute (Thai) documented in this [facility] Phone: [employer] Discharge instructions* Attachments The following attachments cannot be sent through Care Everywhere. * Montague Tooth Extraction: Post-op (Thai) documented in this encounter[facility]ITAL[facility] Phone: [employer] Discharge instructions No data available for this section [facility] Discharge instructions* Attachments The following attachments cannot be sent through Care Everywhere. * Ankle Sprain (Thai) [facility]* Attachments The following attachments cannot be sent through Care Everywhere. * : Weeks 26 to 30 (Thai) * : When to Call (After 20 Weeks): General Info (Thai) * : Twins: General Info (Thai) [facility] No data available for this section [facility] for referral (narrative)* Consultation (Routine) Status Reason Specialty Diagnoses / Procedures Referred By Contact Referred To Contact Authorized Nutrition Diagnoses Diet controlled gestational diabetes mellitus (GDM) in second trimester Lelo Gallegos MD [address] [place] [address] Nutrition Services [address] [place] [phone] [facility] for visit Narrative* Consultation (Routine) - Pending Review Specialty Diagnoses / Procedures Referred By Contac t Referred To Contact Gastroenterology Diagnoses Hemorrhoids, unspecified hemorrhoid type Germania Galaviz, MARK [address] [place] [address] Holland Ann MD [address] [place] [address] Referral ID Status Reason Start Date Expiration Date V isits Requested Visits Authorized [id number] Pending Review 12/29/2020 01/14/2022 1 1 [facility] Assessments Diagnosis Accidental overdose of heroin, [...] FoundDocuments on File Type Date Recorded Patient Independent Living Advisor Expl anation Advance Directives and Living Will Power of Sales Service Promoter Documents on File Type Date Recorded Patient Independent Living Advisor Expl anation Advance Directives and Living Will 06/14/2019 7:25 AM does not have 0 Latest Code Status on File Code Status Date Activated Date Inactivated Comments Full Code 06/15/2019 9:29 AM 06/17/2019 4:38 PM Full Code - Unverified 06/14/2019 8:35 AM 06/15/2019 9:29 AM Documents on File Type Date Recorded Patient Independent Living Advisor Expl anation Advance Directives and Living Will 06/14/2019 7:25 AM does not have 3/13/2 0 Latest Code Status on File Code Status Date Activated Date Inactivated Comments Full Code 06/15/2019 9:29 AM 06/17/2019 4:38 PM Full Code - Unverified 06/14/2019 8:35 AM 06/15/2019 9:29 AM Documents on File Type Date Recorded Patient Independent Living Advisor Expl anation Advance Directives and Living Will 06/20/2019 1:10 PM does not have 3/13/2 0 Documents on File Type Date Recorded Patient Independent Living Advisor Expl anation ACP-Advance Directive ACP-Power of Sales Service Promoter Documents on File Type Date Recorded Patient Independent Living Advisor Expl anation Advance Directives and Living Will 06/20/2019 1:10 PM does not have 3/13/2 0 Documents on File Type Date Recorded Patient Independent Living Advisor Expl anation Advance Directives and Living Will 08/28/2020 5:58 AM does not have 3/13/2 0 Latest Code Status on File Code Status Date Activated Date Inactivated Comments Full Code 08/28/2020 11:15 AM 08/30/2020 11:53 AM Full Code 08/28/2020 5:31 AM 08/28/2020 11:07 AM Full Code 06/15/2019 9:29 AM 06/17/2019 4:38 PM Documents on File Type Date Recorded Patient Independent Living Advisor Expl anation Advance Directives and Living Will 08/28/2020 5:58 AM does not have 3/13/2 0 Latest Code Status on File Code Status Date Activated Date Inactivated Comments Full Code 08/28/2020 11:15 AM 08/30/2020 11:53 AM Full Code 08/28/2020 5:31 AM 08/28/2020 11:07 AM Full Code 06/15/2019 9:29 AM 06/17/2019 4:38 PM Documents on File Type Date Recorded Patient Independent Living Advisor Expl anation Advance Directives and Livin g Will 05/15/2021 12:00 AM Latest Code Status on File Code Status Date Activated Date Inactivated Comments Full Code 10/05/2023 9:02 PM Hospital Course * Savita Stiles PA-C - 06/17/2019 10:12 AM [facility] Tia Levin Account: [id number] Admitted: 06/14/2019 Discharge Date/Time: 06/17/19 / 10:12 [...] and heroine use who presented to [facility] 06/14/19 with complaints of abdominal pain and nausea. [facility] AST 1116 ALT 665 Alk phos 255 T bili 6.5 Lipase 8. CTAP revealed pericholecystic fluid vs GB wall thickening, no gallstones or hepatic pathology noted. Patient transferred to [facility] 06/14/2019 for further treatment and evaluation. [...] She understood this. [place] new to [place]17/19. I have reviewed chart for all vitals, diagnostic data, and trial consultant notes. I discussed patient's case with Dr. Gregorio, Dr. Hay (GI) and RN. Discharge Medications Medication List ASK your doctor about these medications naltrexone microspheres Commonly known as: VivitroL Inject 380 (three hundred eighty) mg into the shoulder, thigh, or buttocks every 30 (thirty) days . Physician(s) Family: Physician No, Phone: None, Address: [facility] Follow Up: Javier Hay MD [address] [facility] Ag Kendall [address] [place] [id number] Follow up Repeat weekly CBC, CMP and PT/INR for the next 3-4 weeks then follow up out patient with Dr. Hay. Laboratory Follow Up by [employer]: Weekly labs for CBC, CMP, PT/INR Additional Information: Patient seen and examined day of discharge. For more information regarding patient's care, including complete radiology reports, please contact [facility] at Patient instructions, including activity, [...] and heroine use who presented to [facility] 06/14/19 with complaints of abdominal pain and nausea. H AST 1116 ALT 665 Alk phos 255 T bili 6.5 Lipase 8. CTAP revealed pericholecystic fluid vs GB wall thickening, no gallstones or hepatic pathology noted. Patient transferred to [facility] 06/14/2019 for further treatment and evaluation. [...] 1:16 PM EDT RESOURCES FOR PRIMARY CARE [facility] Primary Care Closed Opens tomorrow [address], [place] [address] [facility] [place] [address] [address] [place] [address] DIRECTIONS WEBSITE [facility] Closed Opens tomorrow 11 AM [address] [place] [address] documented in this encounter* Instructions* Adia Dillon, [...] Opioid Use Disorder: Medication-Assisted Treatment: General Info (Thai) documented in this encounter* Attachments The following attachments cannot be sent through Care Everywhere. * Bacterial Vaginosis (Thai) * Trichomoniasis (Thai) documented in this encounter* Attachments The following attachments cannot be sent through Care Everywhere. * Dental Surgery: Generic: Post-op (Thai) documented in this encounter* Attachments The following attachments cannot be sent through Care Everywhere. * Bronchitis (Thai) * Pneumonia (Thai) documented in this encounter* Attachments The following attachments cannot be sent through Care Everywhere. * Poison Arabella - Leeds - and Sumac (Thai) documented in this encounter History of Present Illness * Javier Hay MD - 06/17/2019 9:59 AM EDT GASTROENTEROLOGY DAILY PROGRESS NOTE 1 Patient Name: Tia Levin MR #: [id number] Assessment/Plan: Elevated LFTs Assessment & Plan 29yo F with PMHx IVDU and hepatitis C who presents from [facility] with elevated LFTs and imaging c/f possible acute cholecystitis. GI consulted for further evaluation. - LFTs: AP 255, AST/ALT 665/1116, TB 6.5 (normal 02/2019) - CT w IVC ([facility]): moderate GBW thickening w pericholecystic fluid and [...] Auguste MD - 06/17/2019 7:41 AM EDT [facility] Inpatient Progress Note 06/17/2019 Tia Levin 1990 [id number] Assessment/Plan: Tia Levin is a 29 y.o. female with a history of amphetamine and heroine use who presented to [facility] 06/14/19 with complaints of abdominal pain and nausea. [facility] AST 1116 ALT 665 Alk phos 255 T bili 6.5 Lipase 8. CTAP revealed pericholecystic fluid vs GB wall thickening, no gallstones or hepatic pathology noted. Patient transferred to [facility] 06/14/2019 for further treatment and evaluation. [...] labs, diagnostics, vitals including pulse ox, and trial consultant/other provider recommendations. No acute issues overnight [...] 2 Patient Name: Tia Levin MR #: [id number] Assessment/Plan: Elevated LFTs Assessment & Plan 29yo F with PMHx IVDU and hepatitis C who presents from [facility] with elevated LFTs and imaging c/f possible [...] Auguste MD - 06/16/2019 9:38 AM EDT [facility] Inpatient Progress Note 06/16/2019 Tia Levin 1990 [id number] Assessment/Plan: Tia Levin is a 29 y.o. female with a history of amphetamine and heroine use who presented to [facility] 06/14/19 with complaints of abdominal pain and nausea. [facility] AST 1116 ALT 665 Alk phos 255 T bili 6.5 Lipase 8. CTAP revealed pericholecystic fluid vs GB wall thickening, no gallstones or hepatic pathology noted. Patient transferred to [facility] 06/14/2019 for further treatment and evaluation. 1. Acute Liver Injury: [facility] AST 1116 ALT 665 Alk phos 255 [...] recent labs, diagnostics, vitals including pulseox, and trial consultant/other provider recommendations. No acute issues overnight [...] 2 Patient Name: Tia Levin MR #: [id number] Assessment/Plan: Elevated LFTs Assessment & Plan 29yo F with PMHx IVDU and hepatitis C who presents from [facility] with elevated LFTs and imaging c/f possible [...] Radiology, Medications and Transcriptions Aisha Hare CNP [facility] (for staff use only) * Indra Pruitt MD - 06/15/2019 10:43 AM EDT [facility] Tia Levin 1990 [id number] Assessment/Plan: Tia Levin is a 29 y.o. female with a history of amphetamine and heroine use who presented to [facility] 06/14/19 with complaints of abdominal pain and nausea. [facility] AST 1116 ALT 665 Alk phos 255 T bili 6.5 Lipase 8. CTAP revealed pericholecystic fluid vs GB wall thickening, no gallstones or hepatic pathology noted. Patient transferred to [facility] 06/14/2019 for further treatment and evaluation. [...] not have a PCP and refused a showcase trimmer consult for assistance. Verified insurance and Rx. [...] 10:48 AM EDT Patient on [facility] for follow-up. After provider review, I called and spoke with patient and changed her appointment to a phone visit, same date/time. In addition, as per provider request, I spoke with patient about going to any [facility] to have her lab taken so it will be available for review on 06/20/19 when she is called for her TCC appointment. Patient agreed with this plan. documented in this encounter* Anastasiia Garza CNP - 06/20/2019 1:16 PM EDT Attempted to call the patient for her tele-health visit today though she did not answer. Called hermobile number 5 times and home phone once, [...] daily (lemon water) Occasional iced coffee at [employer]. Was drinking a lot of Mountain Dew and Energy drinks prior to but stopped. Meals Away From Home - most days, fast food Past Medical History: Past Medical History: Diagnosis Date Anxiety Depression Infectious viral hepatitis hep c PTSD (Post-Traumatic Stress Disorder) History From: History obtained from patient and chart review. Current/Pertinent Medications: prescription for Current Outpatient Medications Ordered in [facility] Medication Sig Dispense Refill amoxicillin (AMOXIL) 250 [...] daily . 90 tablet 3 No current [facility]-ordered facility-administered medications on file. SMBG Results: 93 [...] Referred By Joey t Referred To Contact Nutrition Diagnoses Morbid obesity with body mass index (BMI) of 40.0 or higher ([facility]) Farhat Vang MD [address] Referral ID Status Reason Start Date Expiration Date Visits Requested Visits Authorized [id number] Authorized Specialty Services Required/Pat ient's Best Interest 04/16/2021 04/16/2022 1 1 Specialty Diagnoses / Procedures Referred By Contac t Referred To Contact Neurosurgery Diagnoses Chronic bilateral low back pain without sciatica Farhat Vang MD [address] [address] Carina Kline MD [facility] [place] [address] Referral ID Status Reason Start Date Expiration Date Visits Requested Visits Authorized [id number] Authorized Specialty Services Required/Pat ient's Best Interest 05/14/2021 05/14/2022 1 1 Specialty Diagnoses / Procedures Referred By Contac t Referred To Contact Rehabilitation Diagnoses Chronic bilateral low back pain without sciatica Farhat Vang MD [address] [address] Referral ID Status Reason Start Date Expiration Date Visits Requested Visits Authorized [id number] Authorized Specialty Services Required/Pat ient's Best Interest 05/14/2021 05/14/2022 1 1 Specialty Diagnoses / Procedures Referred By Contac t Referred To Contact Diagnoses At risk for obstructive sleep apnea Farhat Vang MD [address] [address] Gabriel Jacinto MD [address] [place], [place] [address]m[address] [place] [address] Referral ID Status Reason Start Date Expiration Date Visits Requested Visits Authorized [id number] Authorized Specialty Services Required/Pat ient's Best Interest 05/14/2021 05/14/2022 1 1 Additional Source Comments Reason for Visit (unrecogniz ed section and content) Reason Comments Drug Overdose Pt was brought in by [facility] for heroin OD. Prior to arrival [facility] [...] in second trimester Lelo Gallegos MD [address] [place] [address] Nutrition Services [address] [place] [address] Reason Comments Gestational Diabetes Status Reason Specialty Diagnoses / Procedures Referred By Contact Referred To Contact Closed Endocrinology Diagnoses Diet controlled gestational diabetes mellitus (GDM) in second trimester Roslyn Stevenson MD [address] [place] [address] Lelo Gallegos MD [address] [place] [address] Reason Comments Pharyngitis sore throat and head [...] mass index (BMI) of 40.0 or higher ([facility]) Farhat Vang MD [address] [facility] [address] [place] [address] Nutrition Services [address] [place] [address] Referral ID Status Reason Start Date Expiration Date Visits Requested Visits Authorized [id number] Authorized Specialty Services Required/Pat ient's Best Interest [...] and Physical Note 06/14/19 Tia Levin 1990 [id number] Assessment/Plan: Tia Levin is a 29 y.o. female with a history of amphetamine and heroine use who presented to [facility] 06/14/19 with complaints of abdominal pain and nausea. [facility] AST 1116 ALT 665 Alk phos 255 T bili 6.5 Lipase 8. CTAP revealed pericholecystic fluid vs GB wall thickening, no gallstones or hepatic pathology noted. Patient transferred to [facility] 06/14/2019 for further treatment and evaluation. 1. Elevated LFTs: [facility] AST 1116 ALT 665 Alk phos 255 [...] and heroine use who presented to [facility] 06/14/19 with complaints of abdominal pain and nausea. [facility] AST 1116 ALT 665 Alk phos 255 T bili 6.5 Lipase 8. CTAP revealed pericholecystic fluid vs GB wall thickening, no gallstones or hepatic pathology noted. Patient transferred to [facility] 06/14/2019 for further treatment and evaluation. [...] labs, diagnostics, vitals including pulse ox, and trial consultant/other provider recommendations. Discussed with collaborating physician [...] reviewed, including documentation from previous hospitalizations and trial consultant recommendations as summarized below. Briefly, patient [...] Name: Tia Levin Admit Date: MR #: [id number] : 1990 Senior addendum 29 y/o F [...] Hepatitis C, and hx of presents to [facility] with jaundice and abdominal pain. 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 I discussed the case with the resident/DRYWALL PROFESSIONAL and agree with the findings and plan as documented in his/her note and/or any note I supplied. Associated Order(s): IP CONSULT TO GASTROENTEROLOGY GASTROENTEROLOGY CONSULT NOTE 4 Patient Name: Tia Levin Admit Date: MR #: [id number] : 1990 Physicians: Physician No (Family); Brie Moreno MD (Referring) Consult Ordered By: Franny Sims PA-C Assessment and Plan: Other Elevated LFTs Assessment & Plan 29yo F with PMHx IVDU and hepatitis C who presents from [facility] with elevated LFTs and imaging c/f possible [...] and hepatitis C who presents from [facility] with elevated LFTs and imaging c/f possible [...] Invalid input(s): CO2, LABALBU Aisha Hare CNP [facility] (for staff use only) Associated [...] section and content) MRCP exam done by Aidna Dominguez Bryan B. Techs wore masks and gloves. Patient wore mask during whole exam. I saw and evaluated the patient independently. Discussed case with Carli Sims PA-C. I personally reviewed their note and agree with their history, exam, and plan of care. All laboratory and images personally reviewed. Chart reviewed, including documentation from previous hospitalizations and trial consultant recommendations as summarized below. Briefly, patient [...] to cause acute liver injury. Discussed withDr. Walker (GI). Will obtain MRCP, depending level of [...] Adia Dillon, MARK - 08/13/2019 7:43 PM EDTDaAdia pichardo RN - 08/13/2019 7:43 PM Jimena Barnes RN - 08/13/2019 7:38 PM EDT ED Notes (unrecognized secti on and content) ED PROVIDER NOTE [facility] EMERGENCY DEPARTMENT NAME: Tia Levin AGE: 29 y.o. : 1990 VISIT DATE: 08/13/2019 CSN: [id number] PCP: Physician No Chief Complaint Patient presents with Drug Overdose This is a 29-year-old female brought to the ER via EMS for evaluation. Time my exam patient is alert and oriented. She states she was in the [employer] parking lot bent over in her car [...] nursing note reviewed. Exam conducted with a family independence case manager present (Nurses at the bedside). Constitutional: General: [...] ED Disposition Condition Comment Discharge Stable Tia Khushi Levin discharged to home/self care in stable condition. Follow-up Information 1. Wayne Rangel MD. Specialty: Emergency Medicine Why: Dr. Yadav is noted in the community for helping people with drug addiction. [address] [facility] [address] Contact information for after-discharge care Follow-up information has not been specified. Adia Dillon CNP 08/13/191948 Pt brought in by [facility], states she was found by [facility] [...] section and content) DATE CREATED AUTHOR 08/21/2019 [facility] DATE CREATED AUTHOR AUTHOR'S ORGANIZ ATION 02/15/2021 [facility] DATE CREATED AUTHOR AUTHOR'S ORGANIZ ATION 05/18/2021 [facility] DATE CREATED AUTHOR AUTHOR'S ORGANIZ ATION 07/02/2021 [facility] DATE CREATED AUTHOR AUTHOR'S ORGANIZ ATION 07/09/2021 [facility] DATE CREATED AUTHOR AUTHOR'S ORGANIZ ATION 07/05/2022 [facility] DATE CREATED AUTHOR AUTHOR'S ORGANIZ ATION 05/14/2023 [facility] DATE CREATED AUTHOR AUTHOR'S ORGANIZ ATION 10/07/2023 [facility] Walt alejo DATE CREATED AUTHOR AUTHOR'S ORGANIZ ATION 11/11/2023 [facility] DATE CREATED AUTHOR AUTHOR'S ORGANIZ ATION 11/19/2023 [facility] Ordered Prescriptions (unrec ognized section and [...] 1 ampule, Nebulization, ONCE, 1 dose, On 10/12/21 at 1830, Initiate RT Bronchodilator Protocol: Yes - Inpatient Protocol 1830 (Given - Provid er: Susan R Coey, LABORATORY ASSOCIATE) predniSONE (DELTASONE) tablet 60 mg (COMPLETED) 60 mg, Oral, ONCE, 1 dose, On Tue10/12/21 at 1830 1839 (Given - Provid er: [...] 3 HOURS PRN, Starting on Tue05/19/22 at 2001, Until Discontinued, Irritation 2013 (Given - Provid [...]
Care Teams (unrecognized sec tion and content) Recreation Teacher Relationship Specialty Start Date End Date No, Physician [facility] PCP - General 12/29/20 Germania Galaviz, MARK [address] [place] [address] Nurse Practitioner Obstetrics/Gynecology 11/01/19 Recreation Teacher Relationship Specialty Start Date End Date No, Physician [facility] PCP - General 12/29/20 Germania Galaviz, MANAGER CANCER [address] [place] [address] Nurse Practitioner Obstetrics/Gynecology 11/01/19 Recreation Teacher Relationship Specialty Start Date End Date Farhat Vang MD [address] [address] PCP - General Family Medicine 04/16/21 Germania Galaviz, MANAGER CANCER [address] [facility] [address] [place] [address] Nurse Practitioner Obstetrics/Gynecology 11/01/19 Radha Pantoja MD [address] [facility] [address] [place] [address] Carbon Sequestration Plant Engineer Obstetrics/Gynecology 02/02/21 Yvonne Santos MD [address] [facility] [address] [place] [address] Carbon Sequestration Plant Engineer Obstetrics/Gynecology 02/02/21 Regla Dias CN [address] [facility] [address] [place] [address] Boatbuilder Supervisor Obstetrics/Gynecology 02/02/21 Recreation Teacher Relationship Specialty Start Date End Date Farhat Vang MD [address] [facility] [address] [place] [address] PCP - General Family Medicine 04/16/21 Germania Galaviz, MANAGER CANCER [address] [facility] [address] [place] [address] Nurse Practitioner Obstetrics/Gynecology 11/01/19 Radha Pantoja MD [address] [place] [address] Carbon Sequestration Plant Engineer Obstetrics/Gynecology 02/02/21 Yvonne Santos MD [address] [facility] [place] [address] Carbon Sequestration Plant Engineer Obstetrics/Gynecology 02/02/21 Regla Dias, [facility] [address] [facility] [place] [address] Boatbuilder Supervisor Obstetrics/Gynecology 02/02/21 Recreation Teacher Relationship Specialty Start Date End Date Farhat Vang MD [address] [facility] [address] [place] [address] PCP - General Family Medicine 04/16/21 Germania Galaviz, [facility] [address] [place] [address] Nurse Practitioner Obstetrics/Gynecology 11/01/19 Radha Pantoja MD [address] [facility] [place] [address] Carbon Sequestration Plant Engineer Obstetrics/Gynecology 02/02/21 Yvonne Santos MD [address] [facility] [place] [address] Carbon Sequestration Plant Engineer Obstetrics/Gynecology 02/02/21 Regla Dias, [facility] [address] [facility] [place] [address] Boatbuilder Supervisor Obstetrics/Gynecology 02/02/21 Recreation Teacher Relationship Specialty Start Date End Date Linda Sheppard, [address] [facility] [place] [address] PCP - General Family Medicine 09/04/22 Recreation Teacher Relationship Specialty Start Date End Date Linda Sheppard, DO [address] [facility] [place] [address] PCP - General Family Medicine 09/04/22 Recreation Teacher Relationship Specialty Start Date End Date Linda Sheppard, DO [address] [facility] [place] [address] PCP - General Family Medicine [...] BE BASED ON THE PRIMARY CLINICAL RECORDS. [facility] [employer] [facility]. provides no warranty or guarantee of the accuracy or completeness of information in this document.
--- NOTE | 2023-11-22 09:02 | US_ITS ---
[address] [address] Patient Name: TIA MONROE MRN: [id number] date: 1990 Sex: F Assigned Patient Location: US Current Patient Location: Accession/Order Number: [id number] Exam Date: 11/22/2023 09:05 Report Date: 11/22/2023 12:41 At the request of: DARWIN MONROY Procedure: US OB BPP w non-stress EXAMINATION: US OB BPP w non-stress, US OB BPP w non-stress HISTORY: Monochorionic diamniotic twin COMPARISON: No relevant comparison available. TECHNIQUE: Ultrasound biophysical profile was performed in the radiology department. non-reactive stress testing was performed by nursing staff in the birthing center. FETUS A: FINDINGS: BREATHING MOVEMENTS: 2 GROSS BODY MOVEMENTS: 2 TONE: 2 QUALITATIVE AMNIOTIC FLUID VOLUME: 2 PRESENTATION: Cephalic HEART RATE: 141 bpm AMNIOTIC FLUID VOLUME: Largest fluid pocket 7.6 x 9.5 cm GESTATIONAL AGE: 33 weeks 6 days US/US OB BPP w non-stress IMPRESSION: Total biophysical profile score: 8 FETUS A: FINDINGS: BREATHING MOVEMENTS: 2 GROSS BODY MOVEMENTS: 2 TONE: 2 QUALITATIVE AMNIOTIC FLUID VOLUME: 2 PRESENTATION: Transverse head to the maternal right HEART RATE: 138 bpm AMNIOTIC FLUID VOLUME: Largest fluid pocket 5.5 x 7.5 cm GESTATIONAL AGE: 33 weeks 6 days IMPRESSION: Total biophysical profile score: 8 Electronically authenticated by: DAMIR ALVAREZ Date: 11/22/2023 12:41
--- NOTE | 2023-11-22 09:02 | US_ITS ---
[address] [address] Patient Name: TIA MONROE MRN: [id number] date: 1990 Sex: F Assigned Patient Location: [facility] Current Patient Location: Accession/Order Number: [id number] Exam Date: 11/22/2023 09:05 Report Date: 11/22/2023 12:41 At the request of: DARWIN MONROY Procedure: US OB BPP w non-stress EXAMINATION: US OB BPP w non-stress, US OB BPP w non-stress HISTORY: Monochorionic diamniotic twin COMPARISON: No relevant comparison available. TECHNIQUE: Ultrasound biophysical profile was performed in the radiology department. non-reactive stress testing was performed by nursing staff in the birthing center. FETUS A: FINDINGS: BREATHING MOVEMENTS: 2 GROSS BODY MOVEMENTS: 2 TONE: 2 QUALITATIVE AMNIOTIC FLUID VOLUME: 2 PRESENTATION: Cephalic HEART RATE: 141 bpm AMNIOTIC FLUID VOLUME: Largest fluid pocket 7.6 x 9.5 cm GESTATIONAL AGE: 33 weeks 6 days US/US OB BPP w non-stress IMPRESSION: Total biophysical profile score: 8 FETUS A: FINDINGS: BREATHING MOVEMENTS: 2 GROSS BODY MOVEMENTS: 2 TONE: 2 QUALITATIVE AMNIOTIC FLUID VOLUME: 2 PRESENTATION: Transverse head to the maternal right HEART RATE: 138 bpm AMNIOTIC FLUID VOLUME: Largest fluid pocket 5.5 x 7.5 cm GESTATIONAL AGE: 33 weeks 6 days IMPRESSION: Total biophysical profile score: 8 Electronically authenticated by: DAMIR ALVAREZ Date: 11/22/2023 12:41
[2023-11-22 09:37] VITALS: BP 137/75; PULSE 100
== END 2023-11-22 10:15 | disposition home or self-care (01) ==
LOC: US 07:02 → FBC 08:59
PROVIDERS: Visit Provider Obstetrics & Gynecology
DX: O30.033 Twin pregnancy, monochorionic/diamniotic, third trimester (principal); Z3A.33 33 weeks gestation of pregnancy
CPT/HCPCS: 76818

== ENCOUNTER 2023-11-25 06:57 | Outpatient (OUT) | payer BC, SELFPAY ==
--- OUTSIDE RECORDS SUMMARY | 2023-11-25 07:01 | XMS_ITS | CCD ---
Author Organization [facility] ion Partnership [facility] Care Team Providers Care Childcare Teacher Name Role Phone Unavailable Primary Care Provider Unavailabl e No, Physician Primary Care Provider Unavailabl e HODA MADERA Unavailable Unavailable Primary Care Provider Unavailabl e No, Physician Primary Care Provider Unavailabl Germania Becerra Unavailable Roslyn Stevenson Unavailable Radha Pantoja Unavailable Yvonne Santos Unavailable [phone] Larissa, Regla Corina Unavailable No, Physician Primary Care Provider UnavailGermania Rodriguez CNP Unavailable Roslyn Stevenson MD Unavailable Radha Pantoja MD Unavailable Yvonne Santos MD Unavailable Larissapetra COTTON, Regla Corina Unavailable Unavailable Primary Care Provider UnavailGermania Rodriguez CNP Unavailable [phone] Roslyn Stevenson MD Unavailable Radha Pantoja MD [...] Unavailable Linda Sheppard DO Primary Care Provider [phone] Jonathan Martinez Attending Unavailable Zac Fields Attending [...] # 14 tab(s), Refills(s) 0, Pharmacy: [facility], 160, cm, 05/11/23 21:53:00 EST, Height/Length [...] oral solution (2 sources) alpha-Adrenergic Agonist, Uncompetitive E-jirjmk-W-aspartate Receptor Antagonist, Sigma-1 Agonist Start: End: take 5 mL by mouth four times daily as needed for cough brompheniramine-pse udoephedrine-DM (BROMFED DM) 2-30-10 MG/5ML syrup Take 5 mLs by mouth 4 times daily as needed for Congestion or Cough 240 mL 1 10/12/2021 11/11/2021 Active Start: 11-07-2020 End: 11-12-2020 take 5 mL by mouth three times daily as needed for cough sdvvsxeuvhatvxu-meyyghwgcnmjfek-XG 2-30- 10 MG/5ML syrup Take 5 mLs [...] (swish and spit; do not swallow), [facility], 160, cm, 05/11/23 21:53:00 EST, Height/Length [...] Active Dextromethorphan / guaiFENesin (2 sources) Uncompetitive T-diaqmk-M-asparta te Receptor Antagonist, Sigma-1 Agonist End: 06-24-2020 [...] # 15 tab(s), Refills(s) 0, Pharmacy: [facility], 160, cm, 05/13/23 11:33:00 EST, Height/Length [...] for Pain. 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] Onset: 05-18-2019 [...] Coag (Bld) [Time] 29.8 s Normal 23.9-33.8 [facility] Comment on above: Result Comment: IV Heparin Therapy Range: 62.0-94.0 Performed By: #### P T, PTT, BMP, CDP, TROPI #### [facility] [address] [place] [address] Detasseler: Guero Sandoval MD Basic Metabolic Profon 10-04 Anion gap [Moles/Vol] 13 mmol/L Normal - [facility] Comment on above: Performed By: #### P T, PTT, BMP, CDP, TROPI #### [facility] [address] [place] [address] Detasseler: Guero Sandoval MD BUN/CRE Ratio Result cannot be calculated, Creatinine below linear range. Normal - [facility] Comment on above: Performed By: #### P T, PTT, BMP, CDP, TROPI #### [facility] [address] [place] [address] Detasseler: Guero Sandoval MD Calcium [Mass/Vol] 8.7 mg/dL Normal 8.6-10.4 [facility] Comment on above: Performed By: #### P T, PTT, BMP, CDP, TROPI #### [facility] [address] [place], [place] [phone] Detasseler: Guero Sandoval MD Chloride [Moles/Vol] 105 mmol/L Normal 98-107 [facility] Comment on above: Performed By: #### P T, PTT, BMP, CDP, TROPI #### [facility] [address] [place], [place] [phone] Detasseler: Guero Sandoval MD CO2 [Moles/Vol] 18 mmol/L Low 20-[address] [facility] Comment on above: Performed By: #### P T, PTT, BMP, CDP, TROPI #### [facility] [address] [place], [place] [phone] Detasseler: Guero Sandoval MD Creatinine [Mass/Vol] mg/dL Low 0.5-0.9 [facility] Comment on above: Performed By: #### P T, PTT, BMP, CDP, TROPI #### [facility] [address] [place], [place] [phone] Detasseler: Guero Sandoval MD eGFR Can not be calculated Normal >60 [facility] Comment on above: Result Comment: These results [...] T, PTT, BMP, CDP, TROPI #### [facility] [address] [place] [address] Detasseler: Guero Sandoval MD Glucose [Mass/Vol] 111 mg/dL High 70-99 [facility] Comment on above: Performed By: #### P T, PTT, BMP, CDP, TROPI #### [facility] [address] [place] [address] Detasseler: Guero Sandoval MD Potassium [Moles/Vol] 3.8 mmol/L Normal 3.7-5.3 [facility] Comment on above: Performed By: #### P T, PTT, BMP, CDP, TROPI #### [facility] [address] [place] [address] Detasseler: Guero Sandoval MD Sodium [Moles/Vol] 136 mmol/L Normal 135-144 [facility] Comment on above: Performed By: #### P T, PTT, BMP, CDP, TROPI #### [facility] [address] [place] [address] Detasseler: Guero Sandoval MD Urea nitrogen [Mass/Vol] 6 mg/dL Normal 6-20 [facility] Comment on above: Performed By: #### P T, PTT, BMP, CDP, TROPI #### [facility] [address] [place] [address] Detasseler: Geuro Sandoval MD Brain Natri. Peptideon 10-04 Pro-BNP <36 Normal 0-300 [facility] Comment on above: Result Comment: An a ge-independent cutoff point of 300 pg/ml has a 98% negative predictive value excluding acute heart failure. Performed By: #### B ACTIVITY THERAPY SPECIALIST, TROPI #### [facility] [employer] [address] [place] [address] Detasseler: Thor Hernández MD CBC with Diffon 10-05-2023 Abs. Basophil 0.04 k/uL Normal 0.00-0.20 [facility] Comment on above: Performed By: #### P T, PTT, BMP, CDP, TROPI #### [facility] [address] [place] [phone] Detasseler: Guero Sandoval MD Abs.Imm.Granulocyte 0.16 k/uL Normal 0.00-0.30 [facility] Comment on above: Performed By: #### P T, PTT, BMP, CDP, TROPI #### [facility] [address] [place] [address] Detasseler: Guero Sandoval MD Abs.Neutrophil (Seg) 8.05 k/uL High 2.5-7.0 [facility] Comment on above: Performed By: #### P T, PTT, BMP, CDP, TROPI #### [facility] [address] [place] [address] Detasseler: Guero Sandoval MD Basophils/100 WBC (Bld) 0 % Normal 0-2 M [facility] Comment on above: Performed By: #### P T, PTT, BMP, CDP, TROPI #### [facility] [address] [place] [phone] Detasseler: Guero Sandoval MD Eosinophils (Bld) [#/Vol] 0.08 10*3/uL Normal 0.00-0.4 0 [facility] Comment on above: Performed By: #### P T, PTT, BMP, CDP, TROPI #### [facility] [address] [place] [address] Detasseler: Guero Sandoval MD Eosinophils/100 WBC (Bld) 1 % Normal 0-5 [facility] Comment on above: Performed By: #### P T, PTT, BMP, CDP, TROPI #### [facility] [address] [place] [address] Detasseler: Guero Sandoval MD Erythrocyte distribution width (RBC) [Ratio] 13.1 % Normal 12.1-15.2 [facility] Comment on above: Performed By: #### P T, PTT, BMP, CDP, TROPI #### [facility] [address] [place] [address] Detasseler: Guero Sandoval MD Hematocrit (Bld) [Volume fraction] 28.8 % Low 36.0-46.0 [facility] Comment on above: Performed By: #### P T, PTT, BMP, CDP, TROPI #### [facility] [address] [place] [phone] Detasseler: Guero Sandoval MD Hemoglobin (Bld) [Mass/Vol] 9.8 g/dL Low 12.0-16.0 [facility] Comment on above: Performed By: #### P T, PTT, BMP, CDP, TROPI #### [facility] [address] [place] [address] Detasseler: Guero Sandoval MD Immature granulocytes/100 WBC (Bld) 2 % Normal 0-5 [facility] Comment on above: Performed By: #### P T, PTT, BMP, CDP, TROPI #### [facility] [address] [place] [phone] Detasseler: Guero Sandoval MD Lymphocytes (Bld) [#/Vol] 1.61 10*3/uL Normal 1.00-4.8 0 [facility] Comment on above: Performed By: #### P T, PTT, BMP, CDP, TROPI #### [facility] [address] [place] [phone] Detasseler: Guero Sandoval MD Lymphocytes/100 WBC (Bld) 15 % Normal 15-40 [facility] Comment on above: Performed By: #### P T, PTT, BMP, CDP, TROPI #### [facility] [address] [place] [phone] Detasseler: Guero Sandoval MD MCH (RBC) [Entitic mass] 27.7 pg Normal 26.0-34.0 [facility] Comment on above: Performed By: #### P T, PTT, BMP, CDP, TROPI #### [facility] [address] [place] [address] Detasseler: Guero Sandoval MD MCHC (RBC) [Mass/Vol] 34.0 g/dL Normal 31.0-37.0 [facility] Comment on above: Performed By: #### P T, PTT, BMP, CDP, TROPI #### [facility] [address] [place] [phone] Detasseler: Guero Sandoval MD MCV (RBC) [Entitic vol] 81.4 fL Normal 80.0-100.0 [facility] Comment on above: Performed By: #### P T, PTT, BMP, CDP, TROPI #### [facility] [address] [place] [address] Detasseler: Guero Sandoval MD Monocytes (Bld) [#/Vol] 0.77 10*3/uL Normal 0.00-1.00 [facility] Comment on above: Performed By: #### P T, PTT, BMP, CDP, TROPI #### [facility] [address] [place] [address] Detasseler: Guero Sandoval MD Monocytes/100 WBC (Bld) 7 % Normal 4-8 [facility] Comment on above: Performed By: #### P T, PTT, BMP, CDP, TROPI #### [facility] [address] [place] [phone] Detasseler: Guero Sandoval MD Neutrophil (Seg) 75 % Normal 47-75 [facility] Comment on above: Performed By: #### P T, PTT, BMP, CDP, TROPI #### [facility] [address] [place] [address] Detasseler: Guero Sandoval MD Platelet mean volume (Bld) [Entitic vol] 10.2 fL Normal 6.0-12.0 [facility] Comment on above: Performed By: #### P T, PTT, BMP, CDP, TROPI #### [facility] [address] [place] [address] Detasseler: Guero Sandoval MD Platelets (Bld) [#/Vol] 275 10*3/uL Normal 140-450 [facility] Comment on above: Performed By: #### P T, PTT, BMP, CDP, TROPI #### [facility] [address] [place] [address] Detasseler: Guero Sandoval MD RBC (Bld) [#/Vol] 3.54 10*6/uL Low 4.00-5.20 [facility] Comment on above: Performed By: #### P T, PTT, BMP, CDP, TROPI #### [facility] [address] [place] [address] Detasseler: Guero Sandoval MD WBC (Bld) [#/Vol] 10.7 10*3/uL Normal 3.5-11.0 [facility] Comment on above: Performed By: #### P T, PTT, BMP, CDP, TROPI #### [facility] [address] [place] [address] Detasseler: Guero Sandoval MD CT CHEST PULMONARY EMBOLISM [...] Carlos Petersen MD 10/05/23 Final result Normal [facility] Liver Profileon 10-05-2023 Albumin [Mass/Vol] 3.0 g/dL Low 3.5-5.2 [facility] Comment on above: Performed By: #### L IVP #### [facility] [address] [place] [address] Detasseler: Guero Sandoval MD Alkaline Phos 74 U/L Normal 35-104 [facility] Comment on above: Performed By: #### L IVP #### [facility] [address] [place] [address] Detasseler: Guero Sandoval MD ALT [Catalytic activity/Vol] U/L Low 5-33 [facility] Comment on above: Performed By: #### L IVP #### [facility] [address] [place], [place] [phone] Detasseler: Guero Sandoval MD AST [Catalytic activity/Vol] 9 U/L Normal <32 [facility] Comment on above: Performed By: #### L IVP #### [facility] [address] [place], [place] [phone] Detasseler: Guero Sandoval MD Bilirubin [Mass/Vol] 0.3 mg/dL Normal 0.3-1.2 [facility] Comment on above: Performed By: #### L IVP #### [facility] [address] [place], [place] [phone] Detasseler: Guero Sandoval MD Bilirubin, Indirect Can not be calculated Normal 0.0-1.0 [facility] Comment on above: Performed By: #### L IVP #### [facility] [address] [place], [place] [phone] Detasseler: Guero Sandoval MD Bilirubin.indirect [Mass/Vol] mg/dL Normal <0.3 [facility] Comment on above: Performed By: #### L IVP #### [facility] [address] [place], [place] [phone] Detasseler: Guero Sandoval MD Protein [Mass/Vol] 5.9 g/dL Low 6.4-8.3 [facility] Comment on above: Performed By: #### L IVP #### [facility] [address] [place], [place] [phone] Detasseler: Guero Sandoval MD PTon 10-05-2023 INR Coag (PPP) [Relative time] 1.0 {INR} Normal [facility] Comment on above: Result Comment: Therapeutic Range: Moderate Anticoagulant Intensity: INR = 2.0-3.0 High Anticoagulant Intensity: INR = 2.5-3.5 Performed By: #### P T, PTT, BMP, CDP, TROPI #### [facility] [address] [place] [address] Detasseler: Guero Sandoval MD PT Coag (PPP) [Time] 13.6 s Normal 11.5-14.2 [facility] Comment on above: Performed By: #### P T, PTT, BMP, CDP, TROPI #### [facility] [address] [place] [address] Detasseler: Guero Sandoval MD Troponinon 10-05-2023 Troponin, High Sens <6 Normal 0-14 [facility] Comment on above: Result Comment: High Sensitivity Troponin values cannot be compared with other Troponin methodologies. Performed By: #### B ACTIVITY THERAPY SPECIALIST, TROPI #### [address] [phone] Detasseler: Thor Hernández MD Troponin, High Sens <6 Normal 0-14 [facility] Comment on above: Result Comment: High Sensitivity Troponin values cannot be compared with other Troponin methodologies. Performed By: #### P T, PTT, BMP, CDP, TROPI #### [facility] [address] [place] [address] Detasseler: Guero Sandoval MD UA w/Reflex Cultureon 2023 Bilirubin, SemiQt,Ur Negative Normal NEG [facility] Comment on above: Performed By: #### U MICAO, UAX #### [employer] [address] [place] [address] Detasseler: Thor Hernández MD Blood, Urine Negative Normal NEG [facility] Comment on above: Performed By: #### U MICAO, UAX #### [facility] [employer] [address] [place] [address] Detasseler: Thor Hernández MD Clarity (U) Cloudy Abnormal CLEAR [facility] Comment on above: Performed By: #### U MICAO, UAX #### [facility] [address] [place] [address] Detasseler: Thor Hernández MD Color (U) Yellow Normal YEL [facility] Comment on above: Performed By: #### U MICAO, UAX #### [facility] [address] [place] [address] Detasseler: Thor Hernández MD Glucose Ql (U) 1+ mg/dL Abnormal NEG [facility] Comment on above: Performed By: #### U MICAO, UAX #### [facility] [employer] [address] [place] [address] Detasseler: Thor Hernández MD Ketones Ql (U) TRACE Abnormal NEG [facility] Comment on above: Performed By: #### U MICAO, UAX #### [address] [address] Detasseler: hTor Hernández MD Leukocyte esterase Test strip Ql (U) Negative Normal NEG [facility] Comment on above: Performed By: #### U MICAO, UAX #### [address] [address] Detasseler: Thor Hernández MD Nitrite,Ur Negative Normal NEG [facility] Comment on above: Performed By: #### U MICAO, UAX #### [address] [address] Detasseler: Thor Hernández MD PH,Ur 6.0 Normal 5.0-8.0 [facility] Comment on above: Performed By: #### U MICAO, UAX #### [facility] [employer] [address] [place] [address] Detasseler: Thor Hernández MD Protein Ql (U) TRACE Abnormal NEG [facility] Comment on above: Performed By: #### U MICAO, UAX #### [facility] [employer] [address] [place] [address] [place] [address] Detasseler: Thor Hernández MD Spec. Sperry,Ur 1.028 Normal 1.005-1.030 [facility] Comment on above: Performed By: #### U MICAO, UAX #### [address] [address] Detasseler: Thor Hernández MD Urobilinogen,Ur Normal Normal 0.0-1.0 [facility] Comment on above: Performed By: #### U MICAO, UAX #### [address] [address] Detasseler: Thor Hernández MD Urinalysis,Microon 4 Bacteria MODERATE Abnormal NONE [facility] Comment on above: Performed By: #### U RICHYO, UAX #### [address] [address] Detasseler: Thor Hernández MD Casts 2 TO 5 HYALINE Normal 0-8 [facility] Comment on above: Result Comment: Refe rence range defined for non-centrifuged specimen. Performed By: #### U MICAO, UAX #### [address] [address] Detasseler: Thor Hernández MD Epithelial cells LM Ql (Urine sed) 20 TO 50 Normal 0-5 [facility] Comment on above: Performed By: #### U MICAO, UAX #### [facility] [employer] [address] [place] [address] Detasseler: Thor Hernández MD Urine RBC's 0 TO 2 Normal 0-4 [facility] Comment on above: Result Comment: Refe rence range defined for non-centrifuged specimen. Performed By: #### U MICAO, UAX #### [facility] [employer] [address] [place] [address] Detasseler: Thor Hernández MD Urine WBC's 5 TO 10 Normal 0-5 [facility] Comment on above: Performed By: #### U KAYDEN UAX #### [facility] [address] [place] [address] Detasseler: Thor Hernández MD AFP, Maternalon 07-28-2023 Determined by Ultrasound Normal [facility] Comment on above: Performed By: #### T SH, FT4, FT3 #### [facility] [address] [place] [address] Detasseler: Thor Hernández MD #### AADIANEM #### [facility] [address] [place] [address] Detasseler: Thor Hernández MD [facility] [employer] [address] [place], [place] [phone] Detasseler: Tim Vizcarra MD Due Date SEE NOTE Normal [facility] Comment on above: Result Comment: Resu lts for Estimated Due Date: 01 06 24 Performed By: #### T SH, FT4, FT3 #### [facility] [address] [place] [address] Detasseler: Thor Hernández MD #### AAFPM #### [facility] [address] [place] [address] Detasseler: Thor Hernández MD [facility] [address] [place], [place] [phone] Detasseler: Tim Vizcarra MD Family History No Normal [facility] Comment on above: Performed By: #### T SH, FT4, FT3 #### [facility] [address] [place] [address] Detasseler: Thor Hernández MD #### AAFPM #### [facility] [address] [place] [address] Detasseler: Thor Hernández MD [facility] [address] [place] [address] Detasseler: Tim Vizcarra MD Gestat Age (exact) 16 wks, 4 days Normal [facility] Comment on above: Performed By: #### T SH, FT4, FT3 #### [address] [address] Detasseler: Thor Hernández MD #### AAFPM #### [address] [address] Detasseler: Thor Hernández MD [address] [phone] Detasseler: Tim Vizcarra MD Ins Req Matern Diab No Normal [facility] Comment on above: Performed By: #### T SH, FT4, FT3 #### [address] [address] Detasseler: Thor Hernández MD #### AAFPM #### [address] [address] Detasseler: Thor Hernández MD [address] [phone] Detasseler: Tim Vizcarra MD Interpretation Screen Neg Normal [facility] Comment on above: Result Comment: (NOT E) INTERPRETATION: SCREEN NEGATIVE for open spina bifida Neural Tube Defects (NTD) Negative Pre-Test Post-Test Cutoff Neural Tube Defects Risks 1:452 1:3230 1:103 Comments: The risk of an open neural tube defect is less than the twin screening cut-off. This test was developed and its performance characteristics determined by [employer]. It has not been cleared or approved by the [place] Food and Drug Administration. This test was performed in a CLIA certified laboratory and is intended for clinical purposes. Performed By: #### T SH, FT4, FT3 #### [address] [address] Detasseler: Thor Hernández MD #### AAFPM #### [facility] [address] [place] [address] Detasseler: Thor Hernández MD [address] [address] Detasseler: Tim Vizcarra MD [age] [facility] Comment on above: Performed By: #### T SH, FT4, FT3 #### [facility] [address] [place] [address] Detasseler: Thor Hernández MD #### AAFPM #### [facility] [address] [place] [address] Detasseler: Thor Hernández MD [address] [phone] Detasseler: Tim Vizcarra MD Maternal Race Nonblack [facility] Comment on above: Performed By: #### T SH, FT4, FT3 #### [facility] [address] [place] [address] Detasseler: Thor Hernández MD #### AADIANEM #### [facility] [address] [place] [address] Detasseler: Thor Hernández MD [address] [phone] Detasseler: Tim Vizcarra MD Maternal Weight 239.0 lbs. [facility] Comment on above: Performed By: #### T SH, FT4, FT3 #### [facility] [address] [place] [address] Detasseler: Thor Hernández MD #### AAFPM #### [facility] [address] [place] [address] Detasseler: Thor Hernández MD [facility] [address] [place] [address] Detasseler: Tim Vizcarra MD MoM for AFP 1.71 Normal [facility] Comment on above: Performed By: #### T SH, FT4, FT3 #### [facility] [address] [place] [address] Detasseler: Thor Hernández MD #### AAFPM #### [facility] [address] [place] [address] Detasseler: Thor Hernández MD [facility] [address] [place] [address] Detasseler: Tim Vizcarra MD Number of Fetuses Twins Normal [facility] Comment on above: Performed By: #### T SH, FT4, FT3 #### [address] [address] Detasseler: Thor Hernández MD #### AAFPM #### [address] [address] Detasseler: Thor Hernández MD [address] [phone] Detasseler: Tim Vizcarra MD Patient's AFP 46 ng/mL Normal [facility] Comment on above: Performed By: #### T SH, FT4, FT3 #### [facility] [address] [place] [address] Detasseler: Thor Hernández MD #### AAFPM #### [facility] [address] [place] [address] Detasseler: Thor Hernández MD [facility] [address] [place], [place] [phone] Detasseler: Tim Vizcarra MD Smoking Unknown Normal [facility] Comment on above: Performed By: #### T SH, FT4, FT3 #### [facility] [address] [place] [address] Detasseler: Thor Hernández MD #### AAFPM #### [address] [address] Detasseler: Thor Hernández MD [address] [phone] Detasseler: Tim Vizcarra MD Specimen See Note [facility] Comment on above: Result Comment: (NOT E) Initial sample Performed By: [facility] [facility] [address] [place] [address] Senior Software Developer: Morro Modi MD, PhD CLIA Number: [id number] Performed By: #### T SH, FT4, FT3 #### [address] [address] Detasseler: Thor Hernández MD #### AAFPM #### [address] [address] Detasseler: Thor Hernández MD [address] [phone] Detasseler: Tim Vizcarra MD [facility] 07-27-2023 Current Smoking INFORMATION NOT PROVIDED [facility] Comment on above: Performed By: #### T SH, FT4, FT3 #### [address] [address] Detasseler: Thor Hernández MD #### AAFPM #### [address] [address] Detasseler: Thor Hernández MD [address] [address] Detasseler: Tim Vizcarra MD [facility] Comment on above: Performed By: #### T SH, FT4, FT3 #### [facility] [address] [address] Detasseler: Thor Hernández MD #### AAFPM #### [facility] [address] [place] [address] Detasseler: Thor Hernández MD [address] [address] Detasseler: Tim Vizcarra MD Diabetic Negative [facility] Comment on above: Performed By: #### T SH, FT4, FT3 #### [facility] [address] [place] [address] Detasseler: Thor Hernández MD #### AAFPM #### [address] [address] Detasseler: Thor Hernández MD [address] [phone] Detasseler: Tim Vizcarra MD Donor Egg INFORMATION NOT PROVIDED [facility] Comment on above: Performed By: #### T SH, FT4, FT3 #### [facility] [address] [place] [address] Detasseler: Thor eHrnández MD #### AAFPM #### [address] [address] Detasseler: Thor Hernández MD [address] [phone] Detasseler: Tim Vizcarra MD Estimated Due Date 01/06/2024 [facility] Comment on above: Performed By: #### T SH, FT4, FT3 #### [facility] [address] [place] [address] Detasseler: Thor Hernández MD #### AAFPM #### [facility] [address] [address] Detasseler: Thor Hernández MD [address] [address] Detasseler: Tim Vizcarra MD Family History Negative [facility] Comment on above: Performed By: #### T SH, FT4, FT3 #### [facility] [address] [place] [address] Detasseler: Thor Hernández MD #### AAFPM #### [address] [address] Detasseler: Thor Hernández MD [facility] [address] [place] [address] Detasseler: Tim Vizcarra MD In Vitro Fertalizat INFORMATION NOT PROVIDED [facility] Comment on above: Performed By: #### T SH, FT4, FT3 #### [facility] [address] [place] [address] Detasseler: Thor Hernández MD #### AAFPM #### [facility] [address] [address] Detasseler: Thor Hernández MD [address] [address] Detasseler: Tim Vizcarra MD LMP date 2023 [facility] Comment on above: Performed By: #### T SH, FT4, FT3 #### [facility] [address] [place] [address] Detasseler: Thor Hernández MD #### AAFPM #### [facility] [address] [place] [address] Detasseler: Thor Hernández MD [facility] [address] [place], [place] [phone] Detasseler: Tim Vizcarra MD Maternal date 1990 [facility] Comment on above: Performed By: #### T SH, FT4, FT3 #### [facility] [address] [place] [address] Detasseler: Thor Hernández MD #### AAFPM #### [facility] [address] [place] [address] Detasseler: Thor Hernández MD [facility] [address] [place] [address] Detasseler: Tim Vizcarra MD Maternal Weight 239 Normal [facility] Comment on above: Performed By: #### T SH, FT4, FT3 #### [facility] [address] [place] [address]66 Detasseler: Thor Hernández MD #### AAFPM #### [address] [address] Detasseler: Thor Hernández MD [address] [phone] Detasseler: Tim Vizcarra MD Monochorionic Twins Positive Normal [facility] Comment on above: Performed By: #### T SH, FT4, FT3 #### [facility] [address] [place] [address] Detasseler: Thor Hernández MD #### AAFPM #### [facility] [address] [place] [address] Detasseler: Thor Hernández MD [facility] [address] [place] [address] Detasseler: Tim Vizcarra MD Patient Weight Units LBS Normal [facility] Comment on above: Performed By: #### T SH, FT4, FT3 #### [facility] [address] [place] [address] Detasseler: Thor Hernández MD #### AAFPM #### [facility] [address] [place] [address] Detasseler: Thor Hernández MD [facility] [address] [place] [address] Detasseler: Tim Vizcarra MD Race (Maternal) Normal [facility] Comment on above: Performed By: #### T SH, FT4, FT3 #### [address] [address] Detasseler: Thor Hernández MD #### AAFPM #### [address] [address] Detasseler: Thor Hernández MD [address] [address] Detasseler: Tim Vizcarra MD Repeat Specimen INFORMATION NOT PROVIDED [facility] Comment on above: Performed By: #### T SH, FT4, FT3 #### [address] [address] Detasseler: Thor Hernández MD #### AAFPM #### [address] [address] Detasseler: Thor Hernández MD [address] [phone] Detasseler: Tim Vizcarra MD Valproic/Carbamazep INFORMATION NOT PROVIDED [facility] Comment on above: Performed By: #### T SH, FT4, FT3 #### [address] [address] Detasseler: Thor Hernández MD #### AAFPM #### [address] [address] Detasseler: Thor Hernández MD [address] [address] Detasseler: Tim Vizcarra MD Thyroxine, Freeon 07-27-2023 Thyroxine, Free 1.0 ng/dL Normal 0.92-1.68 [facility] Comment on above: Performed By: #### T SH, FT4, FT3 #### [address] [address] Detasseler: Thor Hernández MD #### AAFPM #### [address] [address] Detasseler: Thor Hernández MD [address] [phone] Detasseler: Tim Vizcarra MD Protein,Tot,[place] [employer] 2023 Creatinine [Mass/Vol] 273.0 mg/dL High 28.0-217.0 [facility] Comment on above: Performed By: #### U RTPRT #### [address] [address] Detasseler: Thor Hernández MD Tot Prot. Conc. 21 mg/dL Normal [facility] Comment on above: Result Comment: No n ormal range established. Performed By: #### U RTPRT #### [address] [address] Detasseler: Thor Hernández MD TP/Cre Ratio 0.08 Normal [facility] Comment on above: Performed By: #### U RTPRT #### [address] [address] Detasseler: Thor Hernández MD T3, Freeon 6 Free T3 [Mass/Vol] 3.40 pg/mL Normal 2.00-4.40 [facility] Comment on above: Performed By: #### T SH, FT4, FT3 #### [address] [address] Detasseler: Thor Hernández MD #### AAFPM #### [address] [address] Detasseler: Thor Hernández MD [facility] [address] [place] [address] Detasseler: Tim Vizcarra MD Thyroid Stim. Horm.on 2023 Thyroid Stim. Horm. <0.01 Low 0.27-4.20 [facility] Comment on above: Performed By: #### T SH, FT4, FT3 #### [facility] [place], [place] [address] Detasseler: Thor Hernández MD #### AAFPM #### [facility] [address] [place] [address] [phone] Detasseler: Thor Hernández MD [facility] [employer] [address] [place] [address] Detasseler: Tim Vizcarra MD ED Note-Physicianon 05-14-19 ED [...] see dentistry until she is cleared by [facility]. She does not have an appointment for [facility] to next week. She has no OB [...] # 15 tab(s), Refills(s) 0, Pharmacy: [facility], 160, cm, 05/13/23 11:33:00 EST, Height/Length [...] Oral, q6hr Follow-up With When Contact Information [employer] [facility] In 3 days 05/16/2023 EDT [address] [place] [address] Business (1) Additional Instructions: Dentistry follow-up Patient [...] made to ensure accuracy, however, inadvertently computerized rag grader mistakes may be present. Appropriate healthcare PPE was used in evaluating this patient. Problem List/Past Medical History Ongoing Acute hepatitis C Anxiety Apnea, sleep Dental caries PCOS (polycystic ovarian syndrome) Historical No qualifying data Procedure/Surgical History Delivery. Medications Inpatient ampicillin-sulbacta m additive + Sodium Chloride 0.9% intravenous solution 100 (more content not included)... [facility] Comment on above: Result Comment: Elec tronically Signed By: Greg Stratton PA-C\.br\Date and Time Signed: 05/13/23 12:45 EST\.br\Electronically Co-Signed By: Jonathan Martinez DO\.br\Date and Time Co-Signed: 05/14/23 07:40 EST Consent for Treatmenton Consent for Treatment [id number] #1.00TIFF [facility] Discharge Instructionson Discharge Instructions [id number] 53#1.00TIFF Normal [facility] ED Clinical Summaryon 2023 ED Clinical Summary [place] [id number] ED Clinical Summary Person Information Name: TIA MONROE [facility] Age: 33 Years : 1990 Sex: Female Language: Pakistani PCP: Linda Sheppard DO Marital Status: Visit [...] 13:02:19 05/13/2023 13:02:19 05/13/2023 13:02:19 ADDRESS: [address] [facility] [id number] PHYS DOC NOTES: MEDICAL INFORMATION: Prescriptions Given: New Medications [facility], [address], [place] [id number], [phone] oxycodone (oxyCODONE 5 mg Tab) 1 Tablets [...] Dental Abscess Follow up: With: Address: When: [address] [address] Business (1) In 3 days 05/16/2023 Comments: Dentistry follow-up DIAGNOSIS: Dental abscess Normal [facility] ED Patient Education Noteon 05-13-2023 [...] these instructions at home: Medicines ? Take gcdt-pyg-zjmiwzv and prescription medicines only as told by [...] mouth. ? (more content not included)... Normal [facility] ED Patient Summaryon 024 ED Patient Summary [address] [address] Patient Discharge Instructions Person Information Name: TIA MONROE Age: 33 Years Arrival Date: 05/13/2023 11:19:01 Discharge Diagnosis: Dental abscess Primary Care Physician: Linda Sheppard DO Provider Information Primary Provider: Jonathan Martinez DO [employer] Rep:Greg Stratton PA-C The exam and treatment you received in the Emergency Department were for an urgent problem and are not intended as complete care. It is important that you follow up with a doctor, nurse practitioner, or physician?s assistant media planner for ongoing care. If your symptoms become worse or you do not improve as expected and you are unable to reach your usual health care provider, you should return to the Emergency Department. We are available 24 hours a day. TIA MONROE has been given the following list of patient education materials, prescriptions and follow-up instructions: Follow-up Instructions: With: Address: When: [employer] [address] [address] Business (1) In 3 days 05/16/2023 Comments: Dentistry follow-up In the event that this physician does not participate in your insurance network, please consult with your insurance company to find a nearby participating provider. Patient Education Materials: Dental Abscess A MESSAGE TO ALL PATIENTS REGARDING OPIOIDS PRESCRIPTION OPIOIDS: WHAT YOU NEED TO KNOW Prescription opioids can be used to help relieve hzsdpwnr-mu-iycgsn pain and are often prescribed following a [...] be struggling with addiction, tell your health home health care physician and ask for guidance or call [facility] National Helpline at 3-074-1 (more content not included)... Normal [facility] Discharge Instructionson Discharge Instructions [id number] 40 [id number]#1.00TIFF Normal [facility] ED Clinical Summaryon 2023 ED Clinical Summary [place] [id number] ED Clinical Summary Person Information Name: TIA MONROE [facility] Age: 33 Years : 1990 Sex: Female Language: Pakistani PCP: Linda Sheppard DO Marital Status: Visit [...] 23:59:00 05/11/2023 23:59:00 05/11/2023 23:59:00 ADDRESS: [address] [facility] [id number] PHYS DOC NOTES: MEDICAL INFORMATION: Prescriptions Given: New Medications [facility], [address], [place] [id number], [phone] amoxicillin-clavula cindi (Augmentin 875 mg oral tablet) [...] Medication PATIENT EDUCATION INFORMATION: Instructions: Dental Pain, Thwr-qu-Jlhp Follow up: With: Address: When: Linda Sheppard DO, Amelie C, [address] [place] [address] In 3 days 05/14/2023 DIAGNOSIS: 1:Pain, dental; 2:Infected dental caries; 3:First trimester ; Periapical abscess without sinus Normal [facility] ED Note-Physicianon 05-12-19 ED Note-Physician Basic Information Time Seen: Selena HALL Violet E. 05/11/2023 22:59 Chief Complaint pt arrives for c/o dental pain on the right upper side. states cannot see her denitist d/t being . pt states seen in [place] [facility] and started on amoxcillin. History of Present Illness Patient is a 7-week 33-year-old female with history of PCOS that presents to the ED with her for evaluation of dental pain. Patient says pain started on Tuesday. She localizes it to the right upper jaw, radiates into her face ear and cheek. She went to [place] ER yesterday and was initiated on amoxicillin [...] # 14 tab(s), Refills(s) 0, Pharmacy: [facility], 160, cm, 05/11/23 21:53:00 EST, Height/Length Dosing, 110, kg, 05/11/23 21:53:00 EST, Weight Dosing chlorhexidine topical, 0.018 gm, 15 mL, Oral, BID, 480 mL, Refill(s) 0, (swish and spit; do not swallow), [facility], 160, cm, 05/11/23 21:53:00 EST, Height/Length Dosing, 110, kg, 05/11/23 21:53:00 EST, Weight Dosing (more content not included)... Normal [facility] Comment on above: Result Comment: [...] these instructions at home: Medicines ? Take ajmn-xcg-mjmdnxw and prescription medicines only as told by [...] to the area. Brushing your teeth ? Randall your teeth twice a day using a [...] when you eat or drink. ? Take ajuf-mgc-mksjbqn and prescription medicines only as told by [...] Reviewed: 11/26/2020 Elsevier Patient Education ? 2022 [employer]. Normal [facility] ED Patient Summaryon 024 ED Patient Summary [address] [address] Patient Discharge Instructions Person Information Name: TIA MONROE Age: 33 Years Arrival Date: 05/11/2023 21:25:54 Discharge Diagnosis: 1:Pain, dental; 2:Infected dental caries; 3:First trimester ; Periapical abscess without sinus Primary Care Physician: Linda Sheppard DO Provider Information Primary Provider: Zac Fields M.D. [employer] Rep:Violet Walters PA-C The exam and treatment you received in the Emergency Department were for an urgent problem and are not intended as complete care. It is important that you follow up with a doctor, nurse practitioner, or physician?s assistant media planner for ongoing care. If your symptoms become [...] Instructions: With: Address: When: Linda Sheppard DO [address] [place] [address], [facility] C, [facility] [address] [place], [place] [id number] In 3 days 05/14/2023 In the event that this physician does not participate in your insurance network, please consult with your insurance company to find a nearby participating provider. Patient Education Materials: Dental Pain, Ywpm-lf-Yqrg A MESSAGE TO ALL PATIENTS REGARDING OPIOIDS PRESCRIPTION OPIOIDS: WHAT YOU NEED TO KNOW Prescription opioids can be used to help relieve ixawiksh-pd-dbmazm pain and are often prescribed following a [...] be struggling with addiction, tell your health home health care physician an (more content not included)... Normal [facility] Consent for Treatmenton 03-0 Consent for Treatment [id number] 96#1.00TIFF [facility] Progesteroneon 12-28-2022 Progesterone 12.60 ng/mL Normal [facility] Comment on above: Result Comment: Female: Follicular phase <0.19 ng/mL Ovulation phase 0.06-4.14 ng/mL Luteal phase 4.11-14.5 ng/mL Postmenopausal <0.13 ng/mL Performed By: #### P NICKY #### [facility] [address] [place] [address] Detasseler: Thor Hernández MD Progesteroneon 11-24-2022 Progesterone 7.18 ng/mL High 0.0-0.15 [facility] Comment on above: Result Comment: Female: Follicular phase <0.19 ng/mL Ovulation phase 0.06-4.14 ng/mL Luteal phase 4.11-14.5 ng/mL Postmenopausal <0.13 ng/mL Performed By: #### P NICKY #### [employer] [address] [place] [address] [phone] Detasseler: Thor Hernández MD , Urineon HCG ( test) Ql (U) Negative NEGATIVE [facility] XR ANKLE RIGHT (MIN 3 VIEWS) on 09-04-2022 FINDINGS/IMPRESSION : No acute displaced fracture identified. Ankle mortise is symmetric. There is a 1 mm tiny calcified body which is remote appearing near the distal fibular tip. Minimal ankle soft tissue edema. [facility] EXAM: XR ANKLE RIGHT (MIN 3 VIEWS) INDICATION: Reason for exam:->swelling COMPARISON: None. TECHNIQUE: Radiographs as described above [facility] Bettye Johnson MD - 09/04/2022 EXAM: XR ANKLE RIGHT (MIN 3 VIEWS) INDICATION: Reason for exam:->swelling COMPARISON: None. TECHNIQUE: Radiographs as described above IMPRESSION: FINDINGS/IMPRESSION : No acute displaced fracture identified. Ankle mortise is symmetric. There is a 1 mm tiny calcified body which is remote appearing near the distal fibular tip. Minimal ankle soft tissue edema. [facility] Radiology Study observation (narrative) [facility] XR ANKLE RIGHT (MIN 3 VIEWS) Ordered By: Bettye Johnson on 09-04-2022 [facility] Work Phone: Coding Summary.on 07-09-2022 Coding Summary. CD:[id number] bWw+PGhlYWQ+NW9CIFR bM71utCWlyL1vH5LMRD lOSywgQVBQTElOSyIgb nUeAW1fzMMkGOLv IC8+FL8hJKGkHtnuaLX eo4W9vIC3Y57rly1sRJ zmhPX5RKXwMsTtalitt 1wfyLz5ZXkhAywjRqFy QRWdfC42ZSL7hT48Uz9 7hRHidDZoc1rewXt8Ju LgFMYjHCJ6fNqxHOskp 2GwGVVyW82coIWam2P2 IGNvbGxhcHNlOyBlbXB 1aA1qWNmncjioq8xcni nsMiy2dr96eYXzj1U7l ZO5L4FhgjI8OVYhoJKh GsxviAANyT2boruen4e ehzaxNgFcEFXcAPq7RU f6QWKycWvzEiCzXB70Z AJ4HEXneqGuY0IoRIKv lEopRuD6d1A9Nl4MA3Q JDwvkN7EVBJUMHOkubW Q+ZG45ix75V3IfZbtnS id1SLLaFTY9iJB1pJ4v ZVLgASxvf3X1wFA6F8E aggBrke0dt5aySAPuGG ppQ23fsGLqp6K9NWCie IQ7KJTgiJywHbUgxA51 Oyc+SETttPgxh9TkQkh xz5rao4wvwVm6UigyQM DpfyZclVciDWA9i1HzZ k7qFULczXV0pVK1lH0a PzMqOkI6ATqxQ935NqU qzCUlLqciG94tO6FbfI A+QMFxUwt2FDOufLwfE J4lR1AaXDBmibkmxJTl xKbbSD6nOXBhorcvZXE jaU8xDLVaK2t1XdFfFu H0ZQnuL3RlDIFyqifnD t78aM9hAyXwReO7MApv Z1AaoiE7BSWznSPgFEb cMII4Q22ub3N3VUNlFJ OnDLZ6pLW2yA9gfOdeh jogbGVmdDsgdmVydGlj DXyaTYtlR185KKObjAs nPkNvZGluZyBEYXRlOi AgMDUvMDUvMjAyMzwvd GQ+ELPiXOO3yAoaPIOr vMXaKQwmGn4wvAhxmMf eKA9dPWVhvrydQLRxaY 0aJUZkuGZgwTpaUR2bU DIvvyivu486UmPoBEX8 FYXcmECkE9IotZ3lGvW nMCDiZZSmC2XgqWQsKN ezE631BUlvIyO8GXElx sZtX5XwIWGmxOrjBxL1 x8X5Ht5Ht5BgiwiaZ5N keRYxXnSgTrhmECg8L0 RkPjwvdHI+HE96NLDqE X17BTb5FAG4iOkvTBij WRWsV0StdM6jCeEeUSD kZGRkOyc+PHRhYmxlIH dpZHRoPScxMDAlJyBzd FtaAC2uYv4qVJOsWVLj mZzfjTXtTrJpi3hnYJM lZOehML8pvDubM4GioG T5SVNxs4q5Ez25I70pL 3JvdXA+EUHktBA3dXJ5 rN4jQeJdBvY2CNpvE85 0SyZveGOcOxaso1gdx2 xqbJd7OxG9WUFirrBya BizXNW7h8SiRu00T36u IHdpZHRoPSIxNSUiIHZ xzSznhv6uoM0cKx8+PG IeyHS6tLW1tT2dOmKjW sY0EWuqI194XmOxaTMc Vexvj9klq9zrhTj4XfD pOHQtahWquJnkHGF3a2 PiWg71V1OeuCzpl5OxT gz7xa88jFKee0H5nEO0 F7OsLSBcmcpgjPIgeYl zIA6qEEOpayjeRFVbtL 5bJUAiI1q0EbWsCeY6K GhgC2JxfuH8LJTpvEXd EDMfjXPDfJ0vajafk7o fyzscDcMkRKEnSGb6QV p8ECBpjNmpEpYwNFP6K kP2DRF2bTFhdO7qxOkc zifnxB6wLkm+NKW2vRC ehMGJEU5pEgaekXX+PH UeOAX5vOtoCIxxPHSmf R3oIMRuR3z0PpBfDaI9 RKekO6VqamE1KBUtpQB vMEYrhVMYcU0cvvjdg2 pkvrceXpPrWKTyLSu6E Gn0GBHabTxtZyEuVCV5 NoW3GNJ0sGDdgL1ijBk dxrfpuP0mWim+QmlydG nyXIK6WHo3M9CvImt4K BMemGfeRV6yeHEsIEuu Ap2phHkzmAvkVJ4yKNO grogoh821SsUse7csYQ LfwISlLUtuFJO0B90pp 0R3KZKdBFOzOGZ5yXY9 qV9fvFxvqnjevUMjgAb gdmVydGljYWwtYWxpZ2 92TFIwzNbyCeWqJLy8P 5AfRtu2GPDefPgiFV2o gUUtKXpdUl8zyMvljCf mTB2fJMBwynwav419Bh Udi3lgQEUvdZKjMWxaD RK9V43oc3E0AASgCUUj LXO0yYD2gF8sqGnizzr gbGVmdDsgdmVydGljYW opZTseQ438RMZqiLiwA cIlpGm5R0BtVyy1ZUCx vTslPC9zeXBjBQimLd9 smGolgRcnCM5tKQDavt kkb093XlAyi5fyFPOfb QLuMNblJOB7X98vx7I5 WQXuGEZrTOJ2jNM3sW5 hbGlnbjogbGVmdDsgdm SecAcmZVmfRHidL078B HRvcDsnPlBhdGllbnQg EBavIUs5R6AcXmicgUZ +DJ29GSIwTP48gXQrnK Ssi7sclDa2GeLcDDSvH IE5qAqrZHwum0MoUTAx N38eqGQqb3Q1YSFlgQb gzMUcGlEoxPK2fV8jEV fusxwpu8ujhfqiDzaup 0spgo30oA93M73aWVke ZHRoPSIzMCUiIHZhbGl sfc2tjQ6rBn6+PGNvbC U9bAB6oY6jNGVjOiM6G PweA096TnSdqNFjKsha z6edr7xnmFx1NfN9OCD vjnCbcAldXMV6e6KwYj 16H24xHOmbFFNrNZTiG YSvSNFvvPqymk6dmU5g Ii8+EGTehPX5fIP2cI1 pLgItSeK7OXwqM204Pf TxfMDgWarsC95mG6Nbe XA+BTYkMvf9IVCbiKhz ZB0zwKJbLCpvNe5sELV 6CyErKzAjMTffL2YgOS GobsmaajnedEQ4NINsZ GRmdY33Wn8czPtfRVWj vJPRzC5yqmhtd4hqgen jGjFmOXExAYm7RNj0QS BfmIcwZjCtPUZ4CeV4M VY2xTGwpU9vbWzqbgvl fM3jJ9XcLVDrqvhwHm3 1dC4tQkWjNgI0NNrsIx c+Kx0QMlFYQftkEjZVV kRJRTwvdGQ+PHRkIHN0 tIctCGtaPDZtaU1tMAG zB1s6OxTnOdP4IZvrD7 OqRVZufbwlLe76qK8kV nQcDnO4LSpbN5AutwC8 CXHktLPwRHztDXP7D90 nu8P0XSKkSXJeLAW6rQ O7cX9ruTmcvklmlDVvg DsgdmVydGljYWwtYWxp P804TYPhwCejOnHnPcH 2OvH6ZUM7C1VfLou7TZ BjzGitLL8sjSIxARieV a5cgGnxfMyiRL7kMTMd dnvsGVFfmA7uAVCgvZE wwXruRW7nHGIetwtor9 36YhSiGXK9URDtiGHmC 4VsuW9vQjGwNTTfRYSv W0SumWZcUSieE065JJx nUqS8WXFxslNkF2YrSO ZorUjhJzI7z6L8Kd0wU iBZZWFyczwvdGQ+PHRk INQ4fMnbLHalVTTzpX9 zWCFkH7k7IcMcRpT1NS nbR2VpYIEdcqguJa08r M0rMyLfGxY5DYmmU5Bz xcF3QFHqmLWhDBoiIMS 9F99wu9X7ABLrEFEkSW Z1fCZ4uG5zwEzribpds GVmdDsgdmVydGljYWwt JHtiW460IRDhsKxfPbJ lbWFsZTwvdGQ+PHRkIH T3bGbmVOmaADKliD7fZ XXtK6s3ZrPnQbA5IKsd Q0GuINYmgmvrPg12bV0 jChUkRpQ3OXtsW1Ntqa H0GFWaoNTdTVxvIIO7R 52pu0T5RQAgIGFhZUA9 bZE1kL0drUjweaknvXY mdDsgdmVydGljYWwtYW ctK994UAXadNkrQiJmb G8cOWPgIGshxAMwgLqh dGQ+IU04ya78Q2XgErz rJhn8BAMxYIH6jOL7pO 3vOFYbZGuag4X5eTI6U 1PlnsYedw1lb7wvIZRa ADamY22qaPPxe0W8DQE twXF7CTFlfGmtTfVrxV 93Oyc+SXQooLpui4MiY zwbj7djj3frwJu8SrIq FRJjxyHbsAxnBOQ5s5Z sTh20E65wJRtnPKWpSB ToKGBqFUUowZpbgj8mj G9wIi8+GAMchHC3lBS9 nS2gEhVhVhC8MNaiX10 5MkJjoIHxEqtko1gbs1 kneDs5CbIyHYMeekYqt IolXRA0t2FcSt91D6Un zQhoa5ZvIqi3pc99mTS kd0C2cRE8M2SvRBHkpa ushVLewLqfCH8vMVDsv noiBNHraI4uKZJjS6h5 EsQrTiG1CEonW3CjzrR 6IGJvbGQgMTBwdCBUaW 5licdze5zxtuowDeDyJ JErQRw4TXl7AQSouPfa AhZgCGB6KuG5DMO6fLI mjI7ecXjgvievhS8tBm c+YWl4h8jcuVHtNV5nm UQ0TO93NJ55zLQtr8Q8 qHF2U8MeURKlqxsvhlw ctWE8KXTgZSJcdL82Uh 5ihKhfTn2zAPXxWOX0Z JTfjFKqP1ZxmI9aXuMx KTFhFCSyV2XcfPFuVPo cH173LCdwGfR7XPHuze FbI5MgALEwgYniMbW3s 3N2Ai1PEV10CX22WF98 tDZkz2I7oDE5Q9GbDWH iurazalbtdTG4CPNyWL PqmT98Rx9mpKiuPt9sH DPnEBO8AFGdvLJyW1Fv kQ1qZjDhZNFwFLSbV8I msIVsLTycA969UOxbPl T5GQMjxvGqB6KoUDRch RdgJaP7m3J9Ic1TVs82 OU45QX84qOIwp3Q5pJS [id number] U1VOPvTEHxfC52Nt6ds NzzEq8qZVFgIYW3GWMy hFEyP9JirE6mMbEgDFH qFZZrD3CbuNRwXLriD2 67YBqqItC2YZXivdLcU 5FrIVSilIpwKkZ3d8Z3 Hz2OOTlivgq0J2VeCrf vdHI+DL48OYYlEK60rP KfoXKet8docJr9DyThM THrFSF6dMjbBRvqi5Le PBAdK48e (more content not included)... Normal [facility] Consultation Noteon 07-07-19 Consultation Note [...] Problems Acute hepatitis C / SNOMED CT 618058475 / Confirmed Anxiety / SNOMED CT 77006754 / Confirmed Apnea, sleep / SNOMED CT 988288772 / Confirmed Dental caries / SNOMED CT 467204549 / Confirmed PCOS (polycystic ovarian syndrome) / SNOMED CT 076711265 / Confirmed Histories Past Medical History: Active Dental caries ([id number]) Family History: No family history items have [...] Patient agrees with plan of care. Normal [facility] Comment on above: Result Comment: Elec tronically Signed By: Bing PEDRAZA, Todd Lilly\.franchesca\Date and Time Signed: 07/06/22 13:28 EDT DHEA SERUMon 07-04-2022 Dehydroepiandrosterone (DHEA) 220 ng/dL Normal 31-701 [facility] Comment on above: Performed By: #### D KAN. ####[facility] [id number], [place] [address]VySelwyn Nito Daniel DHEA-SULFATEon 06-30-2022 DHEA-Sulfate 106.0 ug/dL Normal 84.8-378.0 [facility] Comment on above: Performed By: #### D DEEPTI ####[facility] [address] [address]Dr. Nito Sanchez FSHon 06-30-2022 FSH 6.6 mIU/mL Normal [facility] Comment on above: Result Comment: Adul t Female: Follicular phase 3.5 - 12.5 Ovulation phase 4.7 - 21.5 Luteal phase 1.7 - 7.7 Postmenopausal 25.8 - 134.8 Performed By: #### L [facility] #### [facility] [address] [place] [address] Dr. Nito Sanchez LUTEINIZING HORMONE (LH)on 0 06-30-2022 LH 18.9 mIU/mL Normal [facility] Comment on above: Result Comment: Adul t Female: Follicular phase 2.4 - 12.6 Ovulation phase 14.0 - 95.6 Luteal phase 1.0 - 11.4 Postmenopausal 7.7 - 58.5 Performed By: #### L BCLH #### [facility] [address] [place] [address] Dr. Nito Sanchez PROLACTINon 06-30-2022 Prolactin 5.3 ng/mL Normal 4.8-23.3 [facility] Comment on above: Performed By: #### P ROLAC #### [facility] [address] [place] [address] Dr. Nito Sanchez CBC AUTO DIFFon 06-29-2022 BASO # 0.1 103/ul Normal 0.0-0.1 [facility] Comment on above: Performed By: #### C BC #### [facility] [address] [place] [address] Dr. Nito Sanchez Basophils/100 WBC (Bld) 0.5 % Normal 0.2-2.0 [facility] Comment on above: Performed By: #### C BC #### [facility] [address] [place] [address] Dr. Nito Sanchez EO # 0.2 103/ul Normal 0.0-0.7 [facility] Comment on above: Performed By: #### C BC #### [facility] [address] [place] [address] Dr. Nito Sanchez Eosinophils/100 WBC (Bld) 1.6 % Normal 0.9-7.0 [facility] Comment on above: Performed By: #### C BC #### [facility] [address] [place] [address] Dr. Nito Sanchez Erythrocyte distribution width (RBC) [Ratio] 13.6 % Normal 11.0-15.0 [facility] Comment on above: Performed By: #### C BC #### [facility] [address] [place] [address] Dr. Nito Sanchez Hematocrit (Bld) [Volume fraction] 39.7 % Normal 36.0-48.0 [facility] Comment on above: Performed By: #### C BC #### [facility] [address] [place] [address] Dr. Nito Sanchez Hemoglobin (Bld) [Mass/Vol] 13.1 g/dL Normal 12.0-16.0 [facility] Comment on above: Performed By: #### C BC #### [facility] [address] [place] [address] Dr. Nito Sanchez IG # 0.05 10e3/ul Critically high 0.00-0.03 [facility] Comment on above: Performed By: #### C BC #### [facility] [address] [place] [address] Dr. Nito Sanchez IG % 0.5 % Normal 0.0-0.5 [facility] Comment on above: Performed By: #### C BC #### [facility] [address] [place] [address] Dr. Nito Sanchez LYMPH # 2.6 103/ul Normal 1.2-3.8 [facility] Comment on above: Performed By: #### C BC #### [facility] [address] [place] [address] Dr. Nito Sanchez Lymphocytes/100 WBC (Bld) 25.3 % Normal 20.5-60.0 [facility] Comment on above: Performed By: #### C BC #### [facility] [address] [place] [address] Dr. Nito Sanchez MANUAL DIFF REQ NO Normal [facility] Comment on above: Performed By: #### C BC #### [facility] [address] [place] [address] Dr. Nito Sanchez MCH (RBC) [Entitic mass] 27.1 pg Normal 26.7-34.0 [facility] Comment on above: Performed By: #### C BC #### [facility] [address] [place] [address] Dr. Nito Sanchez MCHC (RBC) [Mass/Vol] 33.0 g/dL Normal 29.9-35.2 [facility] Comment on above: Performed By: #### C BC #### [facility] [address] [place] [address] Dr. Nito Sanchez MCV (RBC) [Entitic vol] 82.2 fL Normal 81.0-99.0 [facility] Comment on above: Performed By: #### C BC #### [facility] [address] [place] [address] Dr. Nito Sanchez MONO # 0.5 103/ul Normal 0.3-0.8 [facility] Comment on above: Performed By: #### C BC #### [facility] [address] [place] [address] Dr. Nito Sanchez Monocytes/100 WBC (Bld) 5.0 % Normal 1.7-12.0 [facility] Comment on above: Performed By: #### C BC #### [facility] [address] [place] [address] Dr. Nito Sanchez NEUT # 6.9 103/ul Critically high 1.4-6.5 [facility] Comment on above: Performed By: #### C BC #### [facility] [address] [place] [address] Dr. Nito Sanchez Neutrophils/100 WBC (Bld) 67.1 % Normal 43.0-75.0 [facility] Comment on above: Performed By: #### C BC #### [facility] [address] [address] [address] Nito Sanchez Platelet mean volume (Bld) [Entitic vol] 10.0 fL Normal 9.5-13.5 [facility] Comment on above: Performed By: #### C BC #### [facility] [address] [address] [address] Nito Sanchez PLT 313 103/ul Normal 150-450 [facility] Comment on above: Performed By: #### C BC #### [facility] [address] [place] [address] Dr. Nito Sanchez RBC 4.83 106/ul Normal 4.20-5.40 [facility] Comment on above: Performed By: #### C BC #### [facility] [address] [place] [address] Dr. Nito Sanchez WBC 10.3 103/ul Normal 4.0-11.0 [facility] Comment on above: Performed By: #### C BC #### [facility] [address] [place] [address] Dr. Nito Sanchez Consent for Treatmenton 06-06 Consent for Treatment [id number] 650#1.00CD:127 Normal [facility] FREE T4on 06-29-2022 Free T4 [Mass/Vol] 1.01 ng/dL Normal 0.76-1.46 [facility] Comment on above: Performed By: #### F T4 #### [facility] [address] [place] [address] Dr. Nito Sanchez GLYCOHEMOGLOBIN A1Con 2022 ADA RECOMMENDATION SEE BELOW Normal [facility] Comment on above: Result Comment: ADA RECOMMENDED LIMIT 4.0 - 6.0 ADA THERAPEUTIC TARGET < 7.0 ACTION SUGGESTED > 7.0 Performed By: #### A 1C #### [facility] [address] [place] [address] Dr. Nito Sanchez Glucose [Mass/Vol] 108 mg/dL Normal [facility] Comment on above: Performed By: #### A 1C #### [facility] [address] [place] [address] Dr. Nito Sanchez HbA1c (Bld) [Mass fraction] 5.4 % Normal 4.5-6.2 [facility] Comment on above: Performed By: #### A 1C #### [facility] [address] [place] [address] Dr. Nito Sanchez HIPAA Forms Officeon 023 HIPAA Forms Office [id number] 602#1.00CD:127 Normal [facility] Legal Correspondence Officeo n 06-29-2022 Legal Correspondence Office [id number] 270#1.00CD:127 Normal [facility] Legal Correspondence Office [id number] 787#1.00CD:127 Normal [facility] Office/Clinic Note-Physician on 06-29-2022 Office/Clinic Note-Physician [id number] 515#1.00CD:127 Normal [facility] Orders Officeon 06-29-2022 Orders Office [id number] 642#1.00CD:127 Normal [facility] PREG QUANT HCGon 06-29-2022 HCG QUANT 1 mIU/mL Normal [facility] Comment on above: Performed By: #### T BERNICE, PREGQNT #### [facility] [address] [place] [address] Dr. Nito Sanchez HCG RANGE SEE BELOW Normal [facility] Comment on above: Result Comment: 5-50 0.2-1 WEEK 50-500 1-2 WEEKS 100-5,000 2-3 WEEKS 500-10,000 3-4 WEEKS 1,000-50,000 4-5 WEEKS 10,000-100,000 5-6 WEEKS 15,000-200,000 6-8 WEEKS 10,000-100,000 2-3 MONTHS Performed By: #### T BERNICE, PREGQNT #### [facility] [address] [place] [address] Dr. Nito Sanchez Patient Correspondenceon Patient Correspondence [id number] 946#1.00CD:127 Normal [facility] Patient Correspondence [id number] 137#1.00CD:127 Normal [facility] Patient Correspondence [id number] 273#1.00CD:127 Normal [facility] Patient Correspondence [id number] 879#1.00CD:127 Normal [facility] Patient Correspondence [id number] 956#1.00CD:127 Normal [facility] Patient History Officeon Patient History Office [id number] 983#1.00CD:127 Normal [facility] Patient History Office [id number] 721#1.00CD:127 Normal [facility] Radiology Outside Office Ripening Room Operator yon 06-29-2022 Radiology Outside Office Copy [id number] 142#1.00CD:127 Normal [facility] TSHon 06-29-2022 TSH 0.848 uIU/mL Normal 0.358-3.740 [facility] Comment on above: Performed By: #### T , PREGQNT #### [facility] [address] [address] [address] Nito Sanchez US PELVIS AND TRANSVAGon [...] by: BETTYE DANIELS Date: 2022-06-29 15:17 Normal [facility] PAP ACOG PANEL 2: 30 to 65on 06-19-2022 . . Normal [facility] Comment on above: Result Comment: Perf ormed at: WB Performed By: #### 4 [id number] #### [facility] [address] [address] [address] Nito Sanchez Age Gdln ACOG Testing 30-65 Normal [facility] Comment on above: Performed By: #### 4 [id number] #### [facility] [address] [address] [address] Nito Sanchez DIAGNOSIS: Comment Normal [facility] Comment on above: Result Comment: NEGA TIVE FOR INTRAEPITHELIAL LESION OR MALIGNANCY. Performed at: WB Performed By: #### 4 [id number] #### [facility] [address] [address] [address] Nito Sanchez HPV Aptima Negative Normal Negative [facility] Comment on above: Result Comment: This nucleic acid amplification test detects fourteen high-risk HPV types (16,18,31,33,35,39,45,51,52,56,58,59,66,68) without differentiation. Performed at: =G Performed By: #### 4 [id number] #### [facility] [address] [address] [address] Nito Sanchez HPV Genotype Reflex Comment Normal [facility] Comment on above: Result Comment: Crit eria not met, HPV Genotype not performed. Performed at: WB Performed By: #### 4 [id number] #### [facility] [address] [address] [address] Nito Sanchez Methodology: Comment Normal [facility] Comment on above: Result Comment: This liquid based ThinPrep(R) pap test was screened with the use of an image guided system. Performed at: WB Performed By: #### 4 [id number] #### [facility] [address] [address] [address] Nito Sanchez Note: Comment Normal [facility] Comment on above: Result Comment: The Pap smear is a screening test designed to aid in the detection of premalignant and malignant conditions of the uterine cervix. It is not a diagnostic procedure and should not be used as the sole means of detecting cervical cancer. Both false-positive and false-negative reports do occur. . Performed at: WB Performed By: #### 4 [id number] #### [facility] [address] [address] [address] Nito Sanchez Performed by: Comment Normal [facility] Comment on above: Result Comment: Nanda Treadwell, Can Filling And Closing Machine Tender (ASCP) Performed at: WB Performed By: #### 4 [id number] #### [facility] [address] [address] [address] Nito Sanchez Specimen adequacy: Comment Normal [facility] Comment on above: Result Comment: Sati sfactory for evaluation. Endocervical and/or squamous metaplastic cells (endocervical component) are present. Performed at: WB Performed By: #### 4 [id number] #### [facility] [address] [address] MAXILLOFACIAL WO CONTRAST on 05-11-2022 Recent extraction of the right mandibular and maxillary second molar teeth with presence of air in the respective tooth sockets. No evidence of edema in the sublingual space or the buccal space Probable periapical abscess involving the right maxillary premolar tooth adjacent to the first molar tooth. [facility] RIS CONSOLIDATED EXAM: CT MAXILLOFACIAL WO [...] visualized intracranial contents show no acute process. [facility] Phil Romero MD - 05/11/2022 EXAM: [...] tooth adjacent to the first molar tooth. [employer] Work Phone: Radiology Study observation (narrative) [employer] Work Phone: CT MAXILLOFACIAL WO CONTRAST Ordered By: Phil Mary on 05-11-2022 [employer] Work Phone: Urine Preg (Lab)on 3 Beta HCG ( test) Ql (U) Negative NEGATIVE Impliant HCG, Quantitative, on 03-29-2022 hCG Quant NINF [employer] Comment on above: Non-preg premeno <=5 Postmeno <=8 Male <=3 If HCG results do not concur with clinical observations, additional testing to confirm results is recommended. ALEXANDRA DAVISSUSAN [facility] COVID-19, Rapidon 07-22-2021 SARS-CoV-2 (COVID-19) RNA KALPESH+probe Ql (Unsp spec) Not detected Not Detected [facility] Comment on above: Rapid NAAT: The [...] management decisions. Fact sheet for Healthcare Providers: https://www.fda.gov/media/309579/download Fact sheet for Patients: https://www.fda.gov/media/789314/download Methodology: Isothermal Nucleic Acid Amplification Specimen Description .NASOPHARYNGEAL SWAB [facility] Strep Screen Group A Throato n 07-22-2021 S. pyogenes Ag Ql (Throat) Negative NEGATIVE [facility] Comment on above: Rapid Strep A negati ve. A negative Rapid Group A Strep Screen result does not rule out the possibility of Group A Streptococci in the specimen. A Group A Strep DNA test is available upon request. Source .THROAT SWAB [facility] MR LUMBAR SPINE WITHOUT CONT [facility] 06-17-2021 MR LUMBAR SPINE WITHOUT CONTRAST [...] foraminal stenosis. 2. No fracture or spondylolisthesis. [facility] Workstation ID: [id number] Dictated by: JONATHAN LINARES on TueJun 18, 2021 11:51:00 AM EDT Transcribed by: ZULMA CARDENAS on TueJun 18, 2021 11:58:13 AM EDT Finalized by: JONATHAN LINARES on TueJun 18, 2021 12:35:45 PM EDT Normal [facility] Comment on above: Order Comment: Injur y/Trauma or Illness?:Illness/Other How long have you had these symptoms (acute/chronic)?:Chronic Reason for exam?:LBP AND bilat hip pain x years, nki Type of Exam?:Subsequent/Follow-up Additional signs and symptoms?:. CBC panel Auto (Bld)on 04-16 Erythrocyte distribution width (RBC) [Entitic vol] 14.0 % 11.6 - 14.8 % [facility] Hematocrit (Bld) [Volume fraction] 38.6 % 36.0 - 46.0 % [facility] Hemoglobin (Bld) [Mass/Vol] 12.1 g/dL 12.0 - 16.0 g/dL [facility] Interpretation and review of laboratory results Abnormal [facility] MCH (RBC) [Entitic mass] 25.4 pg Low 26. 0 - 34.0 pg [facility] MCHC (RBC) [Mass/Vol] 31.3 g/dL 31.0 - 37.0 g/dL [facility] MCV (RBC) [Entitic vol] 81.1 fL 80.0 - 100.0 fL [facility] Platelet mean volume (Bld) [Entitic vol] 10.0 fL 9.4 - 12.4 fL [facility] Platelets (Bld) [#/Vol] 379 10*3/uL [facility] RBC (Bld) [#/Vol] 4.76 10*6/uL [facility] WBC (Bld) [#/Vol] 9.85 10*3/uL [facility] Comprehensive metabolic 2000 panelon 04-16-2021 Albumin [Mass/Vol] 3.7 g/dL 3.2 - 5.2 g/dL [facility] ALP [Catalytic activity/Vol] 95 U/L 40 - 140 U/L [facility] ALT [Catalytic activity/Vol] 36 U/L 14 - 65 U/L [facility] Anion gap [Moles/Vol] 11 mmol/L 10 - 2 0 mmol/L [facility] AST [Catalytic activity/Vol] 22 U/L 0 - 45 U/L [facility] Bilirubin [Mass/Vol] 0.3 mg/dL 0.0 - 1 .3 mg/dL [facility] Calcium [Mass/Vol] 9.3 mg/dL 8.4 - 10. 2 mg/dL [facility] Chloride [Moles/Vol] 105 mmol/L 98 - 10 8 mmol/L [facility] Creatinine [Mass/Vol] 0.68 mg/dL 0.40 - 1.10 [facility] GFR/1.73 sq M.predicted CKD-EPI (S/P/Bld) [Vol rate/Area] 117 >=60 mL/min/1.73 m2 [facility] Glucose [Mass/Vol] 76 mg/dL 65 - 99 mg/dL [facility] HCO3 [Moles/Vol] 26 mmol/L 21 - 32 mmol/L [facility] Interpretation and review of laboratory results Normal [facility] Potassium [Moles/Vol] 4.2 mmol/L 3.5 - 5.1 mmol/L [facility] Protein [Mass/Vol] 7.5 g/dL 6.0 - 8.0 g/dL [facility] Sodium [Moles/Vol] 138 mmol/L 135 - 145 mmol/L [facility] Urea nitrogen [Mass/Vol] 13 mg/dL 8 - 25 mg/dL [facility] Urea nitrogen/Creatinine [Mass ratio] 19.1 mg/mg [facility] The eGFR should be used for monitoring renal function only and not for medication dosing. [facility] Lipid 1996 panelon 2 Cholesterol [Mass/Vol] 195 mg/dL 100 - 199 mg/dL [facility] Comment on above: National Cholesterol Education Program Guidelines: Cholesterol Desirable: <200 mg/dL Borderline High: 200-239 mg/dL High: greater than or equal to 240 mg/dL Cholesterol in HDL [Mass/Vol] 56 mg/dL 40 - 59 [facility] Comment on above: National Cholesterol Education Program Guidelines: HDL Cholesterol Low: <40 mg/dL Near Optimal: 40-59 mg/dL High: greater than or equal to 60 mg/dL Cholesterol in LDL [Mass/Vol] 109 mg/dL 10 - 130 mg/dL [facility] Comment on above: National Cholesterol Education Program Guidelines: LDL Cholesterol Optimal: <100 mg/dL Near Optimal/above Optimal: 100-129 mg/dL Borderline High: 130-159 mg/dL High: 160-189 mg/dL Very High: greater than or equal to 190 mg/dL Cholesterol non HDL [Mass/Vol] 139 mg/dL [facility] Comment on above: National Cholesterol Education Program Guidelines: NON HDL Cholesterol Desirable: <130 mg/dL Borderline High: 130-159 mg/dL High: 160-189 mg/dL Very High: > or = 190 mg/dL Cholesterol.total/Cholest elton in HDL [Mass ratio] 3.5 {ratio} ratio [facility] Comment on above: Female Cholesterol/H DL Ratio: Average risk: 4.4 1/2 average risk: 3.3 2 x average risk: 7.1 Interpretation and review of laboratory results Abnormal [facility] Triglyceride [Mass/Vol] 151 mg/dL High 30 - 150 mg/dL [facility] Comment on above: National Cholesterol Education Program Guidelines: Triglyceride Normal: <150 mg/dL Borderline High: 150-199 mg/dL High: 200-499 mg/dL Very High: greater than or equal to 500 mg/dL No Panel Informationon 04-16 [facility] TSH DL <= 0.005 mIU/L Qnon 0 04-16-2021 Interpretation and review of laboratory results Normal [facility] TSH Qn 1.04 m[IU]/L [facility] Basic Metabolic Panel w/ Ref ray to MGon 03-23-2021 Anion gap [Moles/Vol] 13 mmol/L 9 - 17 mmol/L [facility] Calcium [Mass/Vol] 8.8 mg/dL 8.6 - 10. 4 mg/dL [facility] Chloride [Moles/Vol] 104 mmol/L 98 - 10 7 mmol/L [facility] CO2 [Moles/Vol] 21 mmol/L 20 - 31 mmol/L [facility] Creatinine [Mass/Vol] 0.65 mg/dL 0.50 - 0.90 mg/dL [facility] GFR >60 >60 mL/min [facility] GFR Non- >60 >60 mL/min [facility] GFR/1.73 sq M.predicted MDRD (S/P/Bld) [Vol rate/Area] [facility] Comment on above: Average GFR for 30-3 9 years old: 107 mL/min/1.73sq m Chronic Kidney Disease: <60 mL/min/1.73sq m Kidney failure: <15 mL/min/1.73sq m eGFR calculated using average adult body mass. Additional eGFR calculator available at: http://www.[employer]ILE customer insight/multiple_crcl_2012.htm GFR/1.73 sq M.predicted MDRD (S/P/Bld) [Vol rate/Area] NOT REPORTED [facility] Glucose [Mass/Vol] 104 mg/dL High 70 - 99 mg/dL [facility] Interpretation and review of laboratory results Abnormal [facility] th Potassium [Moles/Vol] 3.7 mmol/L 3.7 - 5.3 mmol/L [facility] Sodium [Moles/Vol] 138 mmol/L 135 - 144 mmol/L [facility] Urea nitrogen (BldV) [Mass/Vol] 15 mg/dL 6 - 20 mg/dL [facility] Urea nitrogen/Creatinine (Bld) [Mass ratio] 23 High [facility] CBC Auto Differentialon 03-07 Absolute Eos # 0.10 [facility] th Absolute Immature Granulocyte NOT REPORTED [facility] Absolute Lymph # 0.[address] [facility] alth Absolute [place] # 0.50 [facility] Basophils (Bld) [#/Vol] 0.00 10*3/uL [facility] Basophils/100 WBC (Bld) 0 % 0 - 2 % [facility] Differential Type YES [facility] ealt Eosinophils/100 WBC (Bld) 2 % 0 - 5 % [facility] Hematocrit (Bld) [Volume fraction] 34.6 % Low 36 - 46 % [facility] Hemoglobin.gastrointestin al spec 1 Ql (Stl) 11.7 g/dL Low 12.0 - 16.0 g/dL [facility] Immature Granulocytes NOT REPORTED 0 % [facility] Interpretation and review of laboratory results Abnormal [facility] Lymphocytes/100 WBC (Bld) 13 % Low 15 - 40 % [facility] MCH (RBC) [Entitic mass] 26.4 pg 26 - 34 pg [facility] MCHC (RBC) [Mass/Vol] 33.8 g/dL 31 - 3 7 g/dL [facility] MCV (RBC) [Entitic vol] 78.2 fL Low 80 - 100 fL [facility] Monocytes/100 WBC (Bld) 10 % High 4 - 8 % [facility] NRBC Automated NOT REPORTED per 100 WBC [facility] Platelet distribution width (Bld) [Ratio] 14.4 % 12.1 - 15.2 % [facility] Platelet Estimate NOT REPORTED [facility] Platelet mean volume (Bld) [Entitic vol] NOT REPORTED 6.0 - 12.0 fL [facility] Platelets (Bld) [#/Vol] 259 10*3/uL [facility] RBC (Bld) [#/Vol] 4.43 10*6/uL 4.0 - 5.2 m/uL [facility] RBC (Bld) [#/Vol] NOT REPORTED [facility] Segmented neutrophils/100 WBC (Bld) 75 % 47 - 75 % [facility] Segs [facility] 3.[facility] [#/Vol] 4.8 10*3/uL [facility] WBC (Bld) [#/Vol] NOT REPORTED [facility] COVID-19, Rapidon 03-23-2021 Interpretation and review of laboratory results Abnormal [facility] SARS-CoV-2 (COVID-19) RNA KALPESH+probe Ql (Unsp spec) Detected Abnormal Not Detected [facility] Comment on above: Rapid NAAT: The [...] this assay. Fact sheet for Healthcare Providers: https://www.fda.gov/media/763220/download Fact sheet for Patients: https://www.fda.gov/media/946851/download Methodology: Isothermal Nucleic Acid Amplification Results reported to the appropriate Health Department Specimen Description .NASOPHARYNGEAL SWAB [facility] No Panel Informationon 03-23 Direct Exam Negative [facility] Rapid influenza A/B antigens on 03-23-2021 Special Requests NOT REPORTED [facility] Specimen Description .NASOPHARYNGEAL SWAB [facility] COVID-19, RapidOrdered By: Shayy Springer on 12-27-2020 SARS-CoV-2 (COVID-19) RNA KALPESH+probe Ql (Unsp spec) Not detected Not Detected [facility] Work Phone: Comment on above: Rapid NAAT: [...] management decisions. Fact sheet for Healthcare Providers: https://www.fda.gov/media/752997/download Fact sheet for Patients: https://www.fda.gov/media/075286/download Methodology: Isothermal Nucleic Acid Amplification Specimen Description .NASOPHARYNGEAL SWAB [employer] Phone: [employer] Phone: Strep Screen Group A ThroatO rdered By: Wayne Springer on 12-27-2020 S. pyogenes Ag IA Ql (Unsp spec) Rapid Strep A negative. A negative Rapid Group A Strep Screen result does not rule out the possibility of Group A Streptococci in the specimen. A Group A Strep DNA test is available upon request. [employer] Phone: Special Requests NOT REPORTED [employer] Phone: Specimen Description .THROAT [employer] Phone: [employer] Phone: XR SHOULDER RIGHT (MIN 2 VIE WS)Ordered By: Anuj Quinn on 11-20-2020 No acute fracture or traumatic malalignment. [employer] Phone: EXAMINATION: XR SHOULDER RIGHT (MIN 2 VIEWS), , 11/20/2020 9:30 PM EDT INDICATION: Reason for exam:->shoulder pain HISTORY: Ordering Provider Reason for Exam: Technologist Note: Additional: COMPARISON: None. TECHNIQUE: Right shoulder x-ray: 3 view(s). FINDINGS: No acute fracture. Glenohumeral and acromioclavicular joints are anatomically aligned. Joint spaces are preserved. Soft tissues are unremarkable. [employer] Phone: [facility], [facility] Incoming Radiant Results From [employer] - 11/20/2020 9:55 PM EDT EXAMINATION: XR [...] IMPRESSION: No acute fracture or traumatic malalignment. [employer] Work Phone: [employer] Work Phone: COVID-19, MOLECULARon 2020 SARS-CoV-2 (COVID-19) RNA KALPESH+probe Ql (Unsp spec) Not detected Normal Not Detected [facility] Comment on above: Order Comment: : [...] at the following links: For Healthcare Providers: https://www.fda.gov/media/126744/download For Patients: https://www.fda.gov/media/812145/download Performed By: #### L [id number] #### [facility] [address] [place] [address] Joe Rider M.D. [id number] HbA1c (Bld) [Mass fraction]O rdered By: Zelda Bautista on 07-09-2020 Interpretation and review of laboratory results Normal [facility] POC Hemoglobin [id number] By : Zelda Bautista on 07-09-2020 HbA1c (Bld) [Mass fraction] 5.2 % 4.0 - 6.0 % [facility] HbA1c (Bld) [Mass fraction]O rdered By: Lelo Gallegos on 06-09-2020 Interpretation and review of laboratory results Normal [facility] POC Hemoglobin [id number] By : Lelo Gallegos on 06-09-2020 HbA1c (Bld) [Mass fraction] 5.6 % 4.0 - 6.0 % [facility] CBC Auto Differentialon 03-08 Basophils (Bld) [#/Vol] 0.00 10*3/uL [place] Basophils/100 WBC (Bld) 0 % 0 - 2 % [place] Differential Type YES [place] Eosinophils (Bld) [#/Vol] 0.10 10*3/uL [place] Eosinophils/100 WBC (Bld) 1 % 0 - 5 % [place] Erythrocyte distribution width (RBC) [Ratio] 14.2 % 12.1 - 15.2 % [place] Hematocrit (Bld) [Volume fraction] 36.1 % 36 - 46 % [place] Hemoglobin (Bld) [Mass/Vol] 12.5 g/dL 12 - 16 g/dL [place] Interpretation and review of laboratory results Abnormal [place] Lymphocytes (Bld) [#/Vol] 2.00 10*3/uL [place] Lymphocytes/100 WBC (Bld) 14 % Low 15 - 40 % [place] MCH (RBC) [Entitic mass] 30.6 pg 26 - 34 pg [place] MCHC (RBC) [Mass/Vol] 34.5 g/dL 31 - 3 7 g/dL [place] MCV (RBC) [Entitic vol] 88.5 fL 80 - 100 fL [place] Monocytes (Bld) [#/Vol] 0.80 10*3/uL [place] Monocytes/100 WBC (Bld) 6 % 4 - 8 % [place] Platelet mean volume (Bld) [Entitic vol] NOT REPORTED 6 - 12 fL [place] Platelets (Bld) [#/Vol] 300 10*3/uL [place] Platelets (Bld) [#/Vol] NOT REPORTED [place] RBC (Bld) [#/Vol] 4.08 10*6/uL 4 - 5.2 m/uL [place] RBC morphology finding Nom (Bld) NOT REPORTED [place] Segmented neutrophils/100 WBC (Bld) 79 % High 47 - 75 % [place] Segs Absolute 10.70 [place] WBC (Bld) [#/Vol] 13.6 10*3/uL [place] WBC (Bld) [#/Vol] NOT REPORTED per 100 WBC [place] WBC Morphology NOT REPORTED [place] COVID-19, PCRon 03-26-2020 SARS-CoV-2, Rapid Not Detected Not Detected [place] Comment on above: Rapid NAAT: The [...] management decisions. Fact sheet for Healthcare Providers: https://www.fda.gov/media/698334/download Fact sheet for Patients: https://www.fda.gov/media/519163/download Methodology: Isothermal Nucleic Acid Amplification Source .THROAT [place] Comprehensive Metabolic Pane l w/ Reflex to MGon 03-26-2020 Albumin [Mass/Vol] 3.3 g/dL Low 3.5 - 5.2 g/dL [place] Albumin/Globulin [Mass ratio] NOT REPORTED [place] ALP [Catalytic activity/Vol] 57 U/L 35 - 104 U/L [place] ALT [Catalytic activity/Vol] U/L Low 5 - 33 U/L [place] Anion gap [Moles/Vol] 11 mmol/L 9 - 17 mmol/L [place] AST [Catalytic activity/Vol] 9 U/L <32 [place] Bilirubin Ql (U) 0.10 mg/dL Low 0.3 - 1.2 mg/dL [place] Bun/Cre Ratio 21 High [place] Calcium [Mass/Vol] 10.2 mg/dL 8.6 - 10. 4 mg/dL [place] Chloride [Moles/Vol] 104 mmol/L 98 - 10 7 mmol/L [place] CO2 [Moles/Vol] 21 mmol/L 20 - 31 mmol/L [place] Creatinine [Mass/Vol] 0.42 mg/dL Low 0.5 - 0.9 mg/dL [place] GFR >60 >60 mL/min [place] GFR Non- >60 >60 mL/min [place] GFR/1.73 sq M predicted among non-blacks MDRD (S/P/Bld) [Vol rate/Area] NOT REPORTED [place] GFR/1.73 sq M predicted among non-blacks MDRD (S/P/Bld) [Vol rate/Area] [place] Comment on above: Average GFR for 30-3 9 years old: 107 mL/min/1.73sq m Chronic Kidney Disease: <60 mL/min/1.73sq m Kidney failure: <15 mL/min/1.73sq m eGFR calculated using average adult body mass. Additional eGFR calculator available at: http://www.[employer].AGILE customer insight/multiple_crcl_2011.htm Glucose [Mass/Vol] 100 mg/dL High 70 - 99 mg/dL [place] Interpretation and review of laboratory results Abnormal [place] Potassium [Moles/Vol] 3.8 mmol/L 3.7 - 5.3 mmol/L [place] Protein [Mass/Vol] 6.5 g/dL 6.4 - 8.3 g/dL [place] Sodium [Moles/Vol] 136 mmol/L 135 - 144 mmol/L [place] Urea nitrogen [Mass/Vol] 9 mg/dL 6 - 20 mg/dL [place] Otheron 03-26-2020 SARS-CoV-2 [place] Immature granulocytes (Bld) [#/Vol] NOT REPORTED [place] Urinalysis, reflex to micros copicon 03-26-2020 Bil[address] Negative NE[address]IVE [facility] [place] Color, UA YELLOW YELLOW [place] Glucose, Ur Negative NEGATIVE [place] Ketones Ql (U) Negative NEGATIVE [place] Leukocyte esterase Test strip Ql (U) Negative NEGATIVE [place] Nitrite, Urine Negative NEGATIVE [place] pH, UA 7.0 [place] Protein (U) [Mass/Vol] Negative NEGATIVE [place] Specific [place], UA 1.010 [place], [place] Turbidity UA CLEAR CLEAR [place] Urinalysis Comments [place] Urine Hgb Negative NEGATIVE [place] Urobilinogen, Urine Normal Normal [place] Wet Prep, Genitalon 11-20-19 Direct Exam MODERATE EPITHELIAL CELLS Abnormal [place] Direct Exam FEW TRICHOMONAS SEEN Abnormal [place] Direct Exam MODERATE BACTERIA Abnormal [place] Direct Exam Few epithelials coated with bacteria resembling clue cells. Abnormal [place] Direct Exam NO FUNGAL ELEMENTS SEEN [place] Interpretation and review of laboratory results Abnormal [place] Special Requests NOT REPORTED [place] Specimen Description .VAGINAL SPECIMEN [place] WBC (Bld) [#/Vol] FEW WBC SEEN Abnormal [place] Basic Metabolic Panelon 06-05 Anion gap [Moles/Vol] 15 mmol/L 10 - 2 0 mmol/L [facility] Calcium [Mass/Vol] 8.6 mg/dL 8.4 - 10. 2 mg/dL [facility] Chloride [Moles/Vol] 102 mmol/L 98 - 10 8 mmol/L [facility] Creatinine [Mass/Vol] 0.36 mg/dL Low 0.40 - 1.10 [facility] GFR/1.73 sq M predicted among non-blacks MDRD (S/P/Bld) [Vol rate/Area] The eGFR should be used for monitoring renal function only and not for medication dosing. [facility] GFR/1.73 sq M.predicted CKD-EPI (S/P/Bld) [Vol rate/Area] 146 >=60 mL/min/1.73 m2 [facility] Glucose [Mass/Vol] 102 mg/dL High 65 - 99 mg/dL [facility] HCO3 [Moles/Vol] 25 mmol/L 21 - 32 mmol/L [facility] Interpretation and review of laboratory results Abnormal [facility] Potassium [Moles/Vol] 4.1 mmol/L 3.5 - 5.1 mmol/L [facility] Sodium [Moles/Vol] 138 mmol/L 135 - 145 mmol/L [facility] Urea nitrogen [Mass/Vol] 5 mg/dL Low 8 - 25 mg/dL [facility] Urea nitrogen/Creatinine [Mass ratio] 13.9 mg/mg [facility] Hepatic Function Panelon Albumin [Mass/Vol] 3.3 g/dL 3.2 - 5.2 g/dL [facility] ALP [Catalytic activity/Vol] 253 U/L High 40 - 140 U/L [facility] ALT [Catalytic activity/Vol] 686 U/L High 0 - 40 U/L [facility] AST [Catalytic activity/Vol] 349 U/L High 0 - 45 U/L [facility] Bilirubin [Mass/Vol] 6.0 mg/dL High 0 - 1.3 mg/dL [facility] Bilirubin.conjugated [Mass/Vol] 5.1 mg/dL High 0 - 0.4 mg/dL [facility] Interpretation and review of laboratory results Abnormal [facility] Protein [Mass/Vol] 6.8 g/dL 6 - 8 g/dL [facility]th Bilirubin, Directon 06-16-19 20 Bilirubin.conjugated [Mass/Vol] 5.4 mg/dL High 0 - 0.4 mg/dL [facility] Interpretation and review of laboratory results Abnormal [facility] CBCon 06-16-2019 Erythrocyte distribution width (RBC) [Entitic vol] 15.1 % High 11.6 - 14.8 % [facility] Hematocrit (Bld) [Volume fraction] 38.5 % 36 - 46 % [facility] Hemoglobin (Bld) [Mass/Vol] 12.9 g/dL 12 - 16 g/dL [facility] Interpretation and review of laboratory results Abnormal [facility] MCH (RBC) [Entitic mass] 29.1 pg 26 - 34 pg [facility] MCHC (RBC) [Mass/Vol] 33.5 g/dL 31 - 3 7 g/dL [facility] MCV (RBC) [Entitic vol] 86.9 fL 80 - 100 fL [facility] Nucleated RBC (Bld) [#/Vol] 0.00 10*3/uL [facility] Nucleated RBC/100 WBC (Bld) [Ratio] 0.0 % [facility] Platelet mean volume (Bld) [Entitic vol] 11.3 fL 9 - 15.5 fL [facility] Platelets (Bld) [#/Vol] 185 10*3/uL [facility] RBC (Bld) [#/Vol] 4.43 10*6/uL [facility] WBC (Bld) [#/Vol] 6.48 10*3/uL [facility] Comprehensive Metabolic Pane cayden 06-16-2019 Albumin [Mass/Vol] 3.3 g/dL 3.2 - 5.2 g/dL [facility] ALP [Catalytic activity/Vol] 217 U/L High 40 - 140 U/L [facility] ALT [Catalytic activity/Vol] 825 U/L High 0 - 40 U/L [facility] Anion gap [Moles/Vol] 14 mmol/L 10 - 2 0 mmol/L [facility] AST [Catalytic activity/Vol] 544 U/L High 0 - 45 U/L [facility] Bilirubin [Mass/Vol] 5.9 mg/dL High 0 - 1.3 mg/dL [facility] Calcium [Mass/Vol] 8.4 mg/dL 8.4 - 10. 2 mg/dL [facility] Chloride [Moles/Vol] 103 mmol/L 98 - 10 8 mmol/L [facility] Creatinine [Mass/Vol] 0.32 mg/dL Low 0.40 - 1.10 [facility] GFR/1.73 sq M predicted among non-blacks MDRD (S/P/Bld) [Vol rate/Area] The eGFR should be used for monitoring renal function only and not for medication dosing. [facility] GFR/1.73 sq M.predicted CKD-EPI (S/P/Bld) [Vol rate/Area] 152 >=60 mL/min/1.73 m2 [facility] Glucose [Mass/Vol] 92 mg/dL 65 - 99 mg/dL [facility] HCO3 [Moles/Vol] 26 mmol/L 21 - 32 mmol/L [facility] Interpretation and review of laboratory results Abnormal [facility] Potassium [Moles/Vol] 4.3 mmol/L 3.5 - 5.1 mmol/L [facility] Protein [Mass/Vol] 6.2 g/dL 6 - 8 g/dL [facility] Sodium [Moles/Vol] 139 mmol/L 135 - 145 mmol/L [facility] Urea nitrogen [Mass/Vol] 4 mg/dL Low 8 - 25 mg/dL [facility] Urea nitrogen/Creatinine [Mass ratio] 12.5 mg/mg [facility] Bilirubin, Directon 06-15-19 20 Bilirubin.conjugated [Mass/Vol] 4.7 mg/dL High 0 - 0.4 mg/dL [facility] Interpretation and review of laboratory results Abnormal [facility] CBCon 06-15-2019 Erythrocyte distribution width (RBC) [Entitic vol] 14.8 % 11.6 - 14.8 % [facility] Hematocrit (Bld) [Volume fraction] 38.5 % 36 - 46 % [facility] Hemoglobin (Bld) [Mass/Vol] 12.6 g/dL 12 - 16 g/dL [facility] MCH (RBC) [Entitic mass] 29.0 pg 26 - 34 pg [facility] MCHC (RBC) [Mass/Vol] 32.7 g/dL 31 - 3 7 g/dL [facility] MCV (RBC) [Entitic vol] 88.5 fL 80 - 100 fL [facility] Nucleated RBC (Bld) [#/Vol] 0.00 10*3/uL [facility] Nucleated RBC/100 WBC (Bld) [Ratio] 0.0 % [facility] Platelet mean volume (Bld) [Entitic vol] 11.0 fL 9 - 15.5 fL [facility] Platelets (Bld) [#/Vol] 155 10*3/uL [facility] RBC (Bld) [#/Vol] 4.35 10*6/uL [facility] WBC (Bld) [#/Vol] 5.74 10*3/uL [facility] Comprehensive Metabolic Pane cayden 06-15-2019 Albumin [Mass/Vol] 3.2 g/dL 3.2 - 5.2 g/dL [facility] ALP [Catalytic activity/Vol] 193 U/L High 40 - 140 U/L [facility] ALT [Catalytic activity/Vol] 888 U/L High 0 - 40 U/L [facility] Anion gap [Moles/Vol] 15 mmol/L 10 - 2 0 mmol/L [facility] AST [Catalytic activity/Vol] 667 U/L High 0 - 45 U/L [facility] Bilirubin [Mass/Vol] 5.2 mg/dL High 0 - 1.3 mg/dL [facility] Calcium [Mass/Vol] 8.2 mg/dL Low 8.4 - 10. 2 mg/dL [facility] Chloride [Moles/Vol] 103 mmol/L 98 - 10 8 mmol/L [facility] Creatinine [Mass/Vol] 0.36 mg/dL Low 0.40 - 1.10 [facility] GFR/1.73 sq M predicted among non-blacks MDRD (S/P/Bld) [Vol rate/Area] The eGFR should be used for monitoring renal function only and not for medication dosing. [facility] GFR/1.73 sq M.predicted CKD-EPI (S/P/Bld) [Vol rate/Area] 146 >=60 mL/min/1.73 m2 [facility] Glucose [Mass/Vol] 122 mg/dL High 65 - 99 mg/dL [facility] HCO3 [Moles/Vol] 22 mmol/L 21 - 32 mmol/L [facility] Interpretation and review of laboratory results Abnormal [facility] Potassium [Moles/Vol] 3.8 mmol/L 3.5 - 5.1 mmol/L [facility] Protein [Mass/Vol] 5.8 g/dL Low 6 - 8 g/dL [facility]th Sodium [Moles/Vol] 136 mmol/L 135 - 145 mmol/L [facility] Urea nitrogen [Mass/Vol] 5 mg/dL Low 8 - 25 mg/dL [facility] Urea nitrogen/Creatinine [Mass ratio] 13.9 mg/mg [facility] NM HEPATOBILIARY WO EJECTION FRACTIONon 06-15-2019 EXAMINATION: [...] tree, and small bowel are not visualized. [facility] Opacified liver with no visualization of the [...] regarding the presence or absence of cholecystitis. [employer] Workstation ID: [id number] [facility] Interface, Rad In [employer] Speech[employer] - 06/15/2019 [...] regarding the presence or absence of cholecystitis. [employer] Work[employer] ID: [id number] [facility] APTTon 06-14-2019 aPTT Coag (Bld) [Time] 31.1 s [facility] [place] Comment on above: PTT Therapeutic Range: 61.7-88.4 Therapeutic range corresponds to plasma heparin levels of 0.3-0.7 U/mL. Acetaminophen Levelon 2019 Acetaminophen [Mass/Vol] 9.1 [facility] Interpretation and review of laboratory results Normal [facility] Bilirubin, Directon 06-14-19 20 Bilirubin.conjugated [Mass/Vol] 4.3 mg/dL High 0 - 0.4 mg/dL [facility] Interpretation and review of laboratory results Abnormal [facility] CBC WITH AUTO DIFFERENTIALon 06-14-2019 Erythrocyte distribution width (RBC) [Entitic vol] 14.5 % 11.6 - 14.8 % [facility] Hematocrit (Bld) [Volume fraction] 34.6 % Low 36 - 46 % [facility] Hemoglobin (Bld) [Mass/Vol] 11.6 g/dL Low 12 - 16 g/dL [facility] Interpretation and review of laboratory results Abnormal [facility] MCH (RBC) [Entitic mass] 29.7 pg 26 - 34 pg [facility] MCHC (RBC) [Mass/Vol] 33.5 g/dL 31 - 3 7 g/dL [facility] MCV (RBC) [Entitic vol] 88.5 fL 80 - 100 fL [facility] Nucleated RBC (Bld) [#/Vol] 0.00 10*3/uL [facility] Nucleated RBC/100 WBC (Bld) [Ratio] 0.0 % [facility] Platelet mean volume (Bld) [Entitic vol] 10.8 fL 9 - 15.5 fL [facility] Platelets (Bld) [#/Vol] 172 10*3/uL [facility] RBC (Bld) [#/Vol] 3.91 10*6/uL [facility] WBC (Bld) [#/Vol] 7.28 10*3/uL [facility] CT ABDOMEN PELVIS W IV CONTR AST Additional Contrast? Noneon 06-14-2019 Ward, [facility] Incoming Radiant Results From [employer]HDF - 06/14/2019 12:27 AM EDT EXAMINATION: CT [...] liver function panel and consider ultrasound imaging. [place], [place] Pericholecystic fluid versus gallbladder wall thickening and additional periportal edema. There are no visualized stones in the gallbladder gallbladder and/or hepatic pathology are suspected. Correlate with liver function panel and consider ultrasound imaging. [place] EXAMINATION: CT ABDOMEN PELVIS W IV [...] structures demonstrate no acute or concerning abnormality. [facility] [place], [place] CT COMPARISON IMPORTon 06-13 This order has been auto-finalized and does not contain a result. [facility] Comprehensive Metabolic Pane cayden 06-14-2019 Albumin [Mass/Vol] 3.0 g/dL Low 3.2 - 5.2 g/dL [facility] ALP [Catalytic activity/Vol] 183 U/L High 40 - 140 U/L [facility] ALT [Catalytic activity/Vol] 808 U/L High 0 - 40 U/L [facility] Anion gap [Moles/Vol] 16 mmol/L 10 - 2 0 mmol/L [facility] AST [Catalytic activity/Vol] 592 U/L High 0 - 45 U/L [facility] Bilirubin [Mass/Vol] 4.9 mg/dL High 0 - 1.3 mg/dL [facility] Calcium [Mass/Vol] 8.4 mg/dL 8.4 - 10. 2 mg/dL [facility] Chloride [Moles/Vol] 104 mmol/L 98 - 10 8 mmol/L [facility] Creatinine [Mass/Vol] 0.43 mg/dL 0.40 - 1.10 [facility] GFR/1.73 sq M predicted among non-blacks MDRD (S/P/Bld) [Vol rate/Area] The eGFR should be used for monitoring renal function only and not for medication dosing. [facility] GFR/1.73 sq M.predicted CKD-EPI (S/P/Bld) [Vol rate/Area] 138 >=60 mL/min/1.73 m2 [facility] Glucose [Mass/Vol] 79 mg/dL 65 - 99 mg/dL [facility] HCO3 [Moles/Vol] 21 mmol/L 21 - 32 mmol/L [facility] Interpretation and review of laboratory results Abnormal [facility] Potassium [Moles/Vol] 3.8 mmol/L 3.5 - 5.1 mmol/L [facility] Protein [Mass/Vol] 5.7 g/dL Low 6 - 8 g/dL [facility]th Sodium [Moles/Vol] 137 mmol/L 135 - 145 mmol/L [facility] Urea nitrogen [Mass/Vol] 9 mg/dL 8 - 25 mg/dL [facility] Urea nitrogen/Creatinine [Mass ratio] 20.9 mg/mg High [facility] DRUGS OF ABUSE SCREEN, URINE on 06-14-2019 Amphetamines Ql (U) None Detected None Detected [facility] Comment on above: Urine Amphetamine Cu toff: < 1000 ng/mL = None Detected Barbiturates Screen Ql (U) None Detected None Detected [facility] Comment on above: Urine Barbiturates C utoff: < 200 ng/mL = None Detected Benzodiazepines Ql (U) None Detected None Detected [facility] Comment on above: Urine Benzodiazepine Cutoff: < 300 ng/mL = None Detected Cannabinoids Screen Ql (U) None Detected None Detected [facility] Comment on above: Urine Cannabinoids C utoff: < 50 ng/mL = None Detected Cocaine Ql (U) Positive Abnormal None Detected [facility] Comment on above: Urine Cocaine Cutoff : < 300 ng/mL = None Detected Interpretation and review of laboratory results Abnormal [facility] Methadone Screen Ql (U) None Detected Non e Detected [facility] Comment on above: Urine Methadone Cuto ff: < 300 ng/mL = None Detected Opiates Screen Ql (U) None Detected None Detected [facility] Comment on above: Urine Opiates Cutoff : < 300 ng/mL = None Detected Oxycodone Ql (U) None Detected None Detected [facility] Comment on above: Urine Oxycodone Cuto ff: < 100 ng/mL = None Detected Screen results should be used for treatment purposes only. Specimen will be kept for 2 weeks, if the sample is adequate. Confirmation testing can be initiated by calling the lab within 2 weeks. [facility] HEPATITIS PANEL, ACUTEon HAV IgM Ql (S) Negative Negative [facility] HBV core IgM Ql (S) Negative Negative [facility] HBV surface Ag Ql (S) Negative Negative [facility] HCV Ab Ql (S) Positive Abnormal Negative [facility] Comment on above: A positive antibody test requires additional follow-up testing, Hepatitis C Virus Quantitation, to determine if a person is currently infected with Hepatitis C. Interpretation and review of laboratory results Abnormal [facility] Test performed using Constantin DEVIKA immunoassay system [facility] Lactic Acid, Plasmaon 2019 Interpretation and review of laboratory results Normal [facility] Lactate [Moles/Vol] 0.8 mmol/L 0.6 - 2 mmol/L [facility] MORPHOLOGYon 06-14-2019 Platelets LM Ql (Bld) Normal Normal [facility] RBC morphology finding Nom (Bld) Normal [facility] MR MRCPon 06-14-2019 EXAMINATION: MR MRCP 03/15/2024 [...] Axial T1-weighted images were obtained in- and eym-ba-hujmc. Axial diffusion-weighted imaging was also performed. FINDINGS: The liver overall appears enlarged with the right hepatic lobe measuring 22.6 cm wryatlch-zs-clfvdtv r. The spleen measures 14.6 cm evsvlrvv-up-ljodlhu r and is also mildly enlarged. There [...] . 4. Trace volume of abdominal ascites. [employer] Workstation ID: [id number] [facility] Interface, Rad In Asif Parhamq - 06/14/2019 [...] Axial T1-weighted images were obtained in- and xst-we-xkgzu. Axial diffusion-weighted imaging was also performed. FINDINGS: The liver overall appears enlarged with the right hepatic lobe measuring 22.6 cm cinxcyqq-hw-qgczenc r. The spleen measures 14.6 cm wlpdnkrh-ye-qfydmla r and is also mildly enlarged. There [...] . 4. Trace volume of abdominal ascites. [employer] Workstation ID: [id number] [facility] Manual Differentialon 2019 Basophils (Bld) [#/Vol] 0.00 10*3/uL [facility] Basophils/100 WBC (Bld) 0.0 % [facility] Eosinophils (Bld) [#/Vol] 0.00 10*3/uL [facility] Eosinophils/100 WBC (Bld) 0.0 % [facility] Lymphocytes (Bld) [#/Vol] 3.28 10*3/uL [facility] Lymphocytes/100 WBC (Bld) 37.0 % [facility] Monocytes (Bld) [#/Vol] 0.44 10*3/uL [facility] Monocytes/100 WBC (Bld) 6.0 % [facility] Neutrophils (Bld) [#/Vol] 3.57 10*3/uL [facility] Neutrophils/100 WBC (Bld) 49.0 % [facility] Variant lymphocytes/100 WBC (Bld) 8.0 % [facility] PT/INRon 06-14-2019 INR Coag (PPP) [Relative time] 1.3 {INR} [facility] Interpretation and review of laboratory results Abnormal [facility] PT Coag (PPP) [Time] 15.5 s [facility] During the induction phase of oral anticoagulation, the INR may not reflect the anticoagulation status of the patient. Therapeutic ranges for INR's are: Most clinical situations: INR 2.0-3.0 Mechanical Prosthetic Valve: INR 2.5-3.5 Critical: INR >5.0 [facility] Protime-INRon 06-14-2019 INR Coag (PPP) [Relative time] 1.2 {INR} [facility] [place] Comment on above: * THERAPY INDICATIONS * REFERENCE RANGES Pts not on anti-coagulants 1.0 - 1.5 INR Low risk pts on anti-coagulants 2.0 - 3.0 INR High risk pts on anti-coagulants 2.5 - 3.5 INR Prevention of atrial thrombo-embolism 3.0 - 4.5 INR Interpretation and review of laboratory results Abnormal [facility] [place] [place] PT Coag (PPP) [Time] 11.7 s High [facility] [place], [place] Salicylate Levelon 0 Interpretation and review of laboratory results Abnormal [facility] Salicylates [Mass/Vol] mg/dL Low 10 - 20 mg/dL [facility] URINALYSISon 06-14-2019 Bacteria Auto Ql (U) Rare Abnormal None Se en /hpf [facility] Bilirubin Ql (U) Positive Abnormal Negative [facility] Comment on above: False positive urine bilirubins can occur in the setting of a large amount of hemoglobin and secondary to medications including anti-inflammatory agents, rifampin, and pyridium. Clarity Refractometry automated (U) Clear Clear [facility] Color (U) Erica Abnormal Colorless, Yellow [facility] Epithelial cells.squamous Auto (Urine sed) [#/Area] 4 [facility] alth Glucose Auto test strip (U) [Mass/Vol] Negative Negative mg/dL [facility] Hemoglobin Auto test strip Ql (U) Negative Negative [facility] Interpretation and review of laboratory results Abnormal [facility] Ketones (U) [Mass/Vol] >=80 Abnormal Negat krystal mg/dL [facility] Leukocyte esterase Auto test strip Ql (U) Negative Negative [facility] Mucus Auto (Urine sed) [#/Area] Rare None Seen, Rare /lpf [facility] Nitrite Auto test strip Ql (U) Negative Negative [facility] pH (U) 6.0 [pH] [facility] Protein (U) [Mass/Vol] 30 Abnormal Negat krystal mg/dL [facility] Comment on above: False positive resul ts may occur in urines with large amounts of hemoglobin, pH greater than 8.0, contrast medium, or disinfectants including ammonium compounds. RBC Auto (Urine sed) [#/Area] 2 [facility] Specific gravity (U) [Rel density] 1.028 High [facility] Urobilinogen (U) [Mass/Vol] >=4.0 Abnormal <2.0 mg/dL [facility] WBC Auto (Urine sed) [#/Area] 2 [facility] Microscopic examination is performed on all urinalysis samples and only positive findings are reported. The test for blood on the chemical analytic portion of urinalysis may also be positive due to hemoglobinuria and myoglobinuria and if red blood cells are present they are quantified by microscopic examination. [facility] US ABDOMEN LIMITED STUDYon 0 06-14-2019 Interface, [...] liver likely small hemangioma. Workstation ID: [id number] [facility] EXAMINATION: US ABDOMEN LIMITED STUDY HISTORY: RUQ [...] measures 10.7 cm in length. No hydronephrosis. [facility] 1. Contracted gallbladder limits evaluation. No cholelithiasis identified. Nonspecific edematous gallbladder wall thickening and reported positive sonographic Short's sign, cannot exclude acalculus cholecystitis. No biliary ductal dilatation. 2. 1.3 cm echogenic lesion left lobe of the liver likely small hemangioma. Workstation ID: [id number] [facility] Amylaseon 06-13-2019 Amylase [Catalytic activity/Vol] 22 U/L Low 28 - 100 U/L [place] CBC Auto Differentialon Basophils (Bld) [#/Vol] 0.00 10*3/uL [place] Basophils/100 WBC (Bld) 1 % 0 - 2 % [place] Differential Type YES [place] Eosinophils (Bld) [#/Vol] 0.00 10*3/uL [place] Eosinophils/100 WBC (Bld) 0 % 0 - 5 % [place] Erythrocyte distribution width (RBC) [Ratio] 14.9 % 12.1 - 15.2 % [place] Hematocrit (Bld) [Volume fraction] 43.3 % 36 - 46 % [place] Hemoglobin (Bld) [Mass/Vol] 14.3 g/dL 12 - 16 g/dL [place] Lymphocytes (Bld) [#/Vol] 2.50 10*3/uL [place] Lymphocytes/100 WBC (Bld) 30 % 15 - 40 % [place] MCH (RBC) [Entitic mass] 28.8 pg 26 - 34 pg [place] MCHC (RBC) [Mass/Vol] 33.1 g/dL 31 - 3 7 g/dL [place] MCV (RBC) [Entitic vol] 87.2 fL 80 - 100 fL [place] Monocytes (Bld) [#/Vol] 0.70 10*3/uL [place] Monocytes/100 WBC (Bld) 8 % 4 - 8 % [place] Platelet mean volume (Bld) [Entitic vol] NOT REPORTED 6 - 12 fL [place], [place] Platelets (Bld) [#/Vol] 203 10*3/uL [place] Platelets (Bld) [#/Vol] NOT REPORTED [place] RBC (Bld) [#/Vol] 4.97 10*6/uL 4 - 5.2 m/uL [place] RBC morphology finding Nom (Bld) NOT REPORTED [place] Segmented neutrophils/100 WBC (Bld) 61 % 47 - 75 % [place] Segs Absolute 5.20 [place] WBC (Bld) [#/Vol] 8.4 10*3/uL [place] WBC (Bld) [#/Vol] NOT REPORTED per 100 WBC [place] WBC Morphology NOT REPORTED [place] Comprehensive Metabolic Pane l w/ Reflex to MGon 06-13-2019 Albumin [Mass/Vol] 4.1 g/dL 3.5 - 5.2 g/dL [place] Albumin/Globulin [Mass ratio] NOT REPORTED [place] ALP [Catalytic activity/Vol] 255 U/L High 35 - 104 U/L [place] ALT [Catalytic activity/Vol] 1116 U/L High 5 - 33 U/L [place] Anion gap [Moles/Vol] 17 mmol/L 9 - 17 mmol/L [place] AST [Catalytic activity/Vol] 665 U/L High <32 [place] Bilirubin Ql (U) 6.52 mg/dL High 0.3 - 1.2 mg/dL [place] Bun/Cre Ratio 17 [place] Calcium [Mass/Vol] 10.1 mg/dL 8.6 - 10. 4 mg/dL [place] Chloride [Moles/Vol] 95 mmol/L Low 98 - 10 7 mmol/L [place] CO2 [Moles/Vol] 24 mmol/L 20 - 31 mmol/L [place] Creatinine [Mass/Vol] 0.82 mg/dL 0.5 - 0.9 mg/dL [place] GFR >60 >60 mL/min [place] GFR Non- >60 >60 mL/min [place] GFR/1.73 sq M predicted among non-blacks MDRD (S/P/Bld) [Vol rate/Area] [place] Comment on above: Average GFR for 20-2 9 years old: 116 mL/min/1.73sq m Chronic Kidney Disease: <60 mL/min/1.73sq m Kidney failure: <15 mL/min/1.73sq m eGFR calculated using average adult body mass. Additional eGFR calculator available at: http://www.Adpeps/multiple_crcl_2012.htm GFR/1.73 sq M predicted among non-blacks MDRD (S/P/Bld) [Vol rate/Area] NOT REPORTED [place] Glucose [Mass/Vol] 134 mg/dL High 70 - 99 mg/dL [place] Interpretation and review of laboratory results Abnormal [place] Potassium [Moles/Vol] 3.7 mmol/L 3.7 - 5.3 mmol/L [place] Protein [Mass/Vol] 8.1 g/dL 6.4 - 8.3 g/dL [place] Sodium [Moles/Vol] 136 mmol/L 135 - 144 mmol/L [place] Urea nitrogen [Mass/Vol] 14 mg/dL 6 - 20 mg/dL [place] Drug screen multi urineon Amphetamine Screen, Ur Negative NEGATIVE [place] Comment on above: (Positive cutoff 500 ng/mL) Barbiturate Screen, Ur Negative NEGATIVE [place] Comment on above: (Positive cutoff 200 ng/mL) Benzodiazepine Screen, Urine Negative NEGATIVE [place] Comment on above: (Positive cutoff 150 ng/mL) Buprenorphine Urine NOT REPORTED NEGATIVE [place] Cannabinoid Scrn, Ur Negative NEGATIVE [place] Comment on above: (Positive cutoff 50 ng/mL) Cocaine Metabolite, Urine Positive Abnormal NEGATIVE [place] Comment on above: (Positive cutoff 150 ng/mL) Interpretation and review of laboratory results Abnormal [place] MDMA, Urine NOT REPORTED NEGATIVE [place] Methadone Screen, Urine Negative NEGATIVE [place] Comment on above: (Positive cutoff 200 ng/mL) Methamphetamine, Urine Negative NEGATIVE [place] Comment on above: (Positive cutoff 500 ng/mL) Opiates, Urine Positive Abnormal NEGATIVE [place] Comment on above: (Positive cutoff 100 ng/mL) Oxycodone Screen, Ur Negative NEGATIVE [place] Comment on above: (Positive cutoff 100 ng/mL) Phencyclidine, Urine Negative NEGATIVE [place] Comment on above: (Positive cutoff 25 ng/mL) Propoxyphene, Urine Negative NEGATIVE [place] Comment on above: (Positive cutoff 300 ng/mL) Test Information NOT REPORTED [place] Tricyclic Antidepressants, Urine Negative NEGATIVE [place], [place] Comment on above: (Positive cutoff 300 ng/mL) Drug screen results are to be used for medical purposes only. All positive results are unconfirmed. Testing for employment or legal uses should be sent to a reference laboratory for confirmation. Lactic Acidon 06-13-2019 Lactate [Moles/Vol] 1.2 mmol/L 0.5 - 2. 2 mmol/L [place] Lipaseon 06-13-2019 Lipase [Catalytic activity/Vol] 8 U/L Low 13 - 60 U/L [place] Microscopic Urinalysison Amorphous, UA NOT REPORTED None [place], [place] Bacteria, UA 2+ Abnormal None [place] Casts UA 5 TO 10 HYALINE /LPF [place] Casts UA 2 TO 5 WAXY /LPF [place] Crystals, UA NOT REPORTED None /HPF [place] Epithelial Cells UA LOADED /HPF [place] Interpretation and review of laboratory results Abnormal [place] Mucus, UA 4+ Abnormal None [place] Other Observations UA NOT REPORTED NOT REQ. [place] RBC (U) [#/Vol] 5 TO 10 [place] Renal Epithelial, UA NOT REPORTED 0 /HPF [place] Trichomonas, UA NOT REPORTED None [place] WBC, UA 10 TO 20 0 /HPF [place] Yeast, UA NOT REPORTED None [place] - [place] Otheron 06-13-2019 Interpretation and review of laboratory results Abnormal [place] Immature granulocytes (Bld) [#/Vol] NOT REPORTED 0 % [place] , Urineon 0 Beta HCG ( test) Ql (U) Negative NEGATIVE [place] Urinalysis, reflex to micros copicon 06-13-2019 Bilirubin Urine 3+ Abnormal NEGATIVE [place] Color, UA BROWN Abnormal YELLOW [place] Glucose, Ur Negative NEGATIVE [place] Interpretation and review of laboratory results Abnormal [place] Ketones Ql (U) MODERATE Abnormal NEGAT[place] Leukocyte esterase Test strip Ql (U) 1+ Abnormal NEGATIVE [place] Nitrite, Urine Positive Abnormal NEGAT[place] pH, UA 5.0 [place] Protein (U) [Mass/Vol] 1+ Abnormal NEGATIVE [place] Specific [place], UA 1.020 [place] Turbidity UA CLEAR CLEAR [place] Urinalysis Comments [place] Urine Hgb TRACE Abnormal NEGATIVE [place] Urobilinogen, Urine 12 mg/dL Abnormal Normal [place] Vital Signs Date Time Vital Sign Value Performing Clinician Facility 10-05-2023 21:00-0400 Body temperature 99.61 [degF] Violet Juarez MD Work Phone: [facility] 10-05-2023 21:00-0400 Diastolic blood pressure 68 mm[Hg] Violet Juarez MD Work Phone: [facility] 10-05-2023 21:00-0400 Heart rate 93 /min Violet Juarez MD Work Phone: [facility] 10-05-2023 21:00-0400 Respiratory rate 16 /min Violet Juarez MD Work Phone: [facility] 10-05-2023 21:00-0400 SaO2% (BldA) [Mass fraction] 97 % Violet Juarez MD Work Phone: [facility] 10-05-2023 21:00-0400 Systolic blood pressure 114 mm[Hg] Violet Juarez MD Work Phone: [facility] 05-13-2023 11:27-0500 Body temperature 98.6 [degF] Jonathan Martinez [facility] 05-13-2023 11:27-0500 Diastolic blood pressure 78 mm[Hg] Jonathan Martinez [facility] 05-13-2023 11:27-0500 Heart rate 83 /min Jonathan Martinez [facility] 05-13-2023 11:27-0500 Respiratory rate 18 /min Jonathan Martinez [facility] 05-13-2023 11:27-0500 SaO2% (BldA) [Mass fraction] 97 % Jonathan Martinez [facility] 05-13-2023 11:27-0500 Systolic blood pressure 113 mm[Hg] Jonathan Martinez [facility] 05-11-2023 21:49-0500 Body temperature 98.06 [degF] [facility] 05-11-2023 21:49-0500 Diastolic blood pressure 84 mm[Hg] [facility] 05-11-2023 21:49-0500 Heart rate 105 /min [facility] 05-11-2023 21:49-0500 Respiratory rate 17 /min [facility] 05-11-2023 21:49-0500 SaO2% (BldA) [Mass fraction] 97 % [facility] 05-11-2023 21:49-0500 Systolic blood pressure 130 mm[Hg] Zac Fields [facility] 05-10-2023 11:41-0500 Body height 160 cm Chet Berumen DO Work Phone: [facility] [employer] 05-10-2023 11:41-0500 Body mass index (BMI) [Ratio] 44.29 kg/m2 Chet Berumen DO Work Phone: [facility] [employer] 05-10-2023 11:41-0500 Body temperature 97.9 [degF] Chet Berumen DO Work Phone: [facility] [employer] 05-10-2023 11:41-0500 Body weight 113.4 kg Chet Berumen DO Work Phone: [facility] [employer] 05-10-2023 11:41-0500 Diastolic blood pressure 76 mm[Hg] Chet Berumen DO Work Phone: [facility] [employer] 05-10-2023 11:41-0500 Heart rate 94 /min Chet Berumen DO Work Phone: [facility] [employer] 05-10-2023 11:41-0500 Respiratory rate 18 /min Chet Berumen DO Work Phone: [facility] [employer] 05-10-2023 11:41-0500 SaO2% (BldA) [Mass fraction] 96 % Chet Berumen DO Work Phone: [facility] [employer] 05-10-2023 11:41-0500 Systolic blood pressure 146 mm[Hg] Chet Berumen DO Work Phone: [employer] 09-04-2022 11:27-0400 Body height 160 cm Erin Lacy MD Work Phone: [employer] 09-04-2022 11:27-0400 Body mass index (BMI) [Ratio] 44.99 kg/m2 Erin Lacy MD Work Phone: [employer] 09-04-2022 11:27-0400 Body temperature 98.2 [degF] Erin Lacy MD Work Phone: [employer] 09-04-2022 11:27-0400 Body weight 115.21 kg Erin Lacy MD Work Phone: [employer] 09-04-2022 11:27-0400 Diastolic blood pressure 71 mm[Hg] Erin Lacy MD Work Phone: [employer] 09-04-2022 11:27-0400 Heart rate 88 /min Erin Lacy MD Work Phone: [employer] 09-04-2022 11:27-0400 Respiratory rate 18 /min Erin Lacy MD Work Phone: [employer] 09-04-2022 11:27-0400 SaO2% (BldA) [Mass fraction] 97 % Erin Lacy MD Work Phone: [employer] 09-04-2022 11:27-0400 Systolic blood pressure 124 mm[Hg] Erin Lacy MD Work Phone: [employer] 06-29-2022 09:49-0400 Diastolic blood pressure 57 mm[Hg] Todd Bing [facility] 06-29-2022 09:49-0400 Heart rate 73 /min Todd Bing [facility] 06-29-2022 09:49-0400 Mean blood pressure 76 mm[Hg] Todd Bing [facility] 06-29-2022 09:49-0400 Respiratory rate 16 /min Todd Bing [facility] 06-29-2022 09:49-0400 Systolic blood pressure 113 mm[Hg] Todd Ibng [facility] 05-19-2022 19:28-0400 Body height 160 cm Erin Lacy MD Work Phone: [employer] 05-19-2022 19:28-0400 Body mass index (BMI) [Ratio] 45.17 kg/m2 Erin Lacy MD Work Phone: [employer] 05-19-2022 19:28-0400 Body weight 115.67 kg Erin Lacy MD Work Phone: [employer] 05-19-2022 19:25-0400 Body temperature 98.29 [degF] Erin Lacy MD Work Phone: [employer] 05-19-2022 19:25-0400 Diastolic blood pressure 68 mm[Hg] Erin Lacy MD Work Phone: [employer] 05-19-2022 19:25-0400 Heart rate 78 /min Erin Lacy MD Work Phone: [employer] 05-19-2022 19:25-0400 Respiratory rate 16 /min Erin Lacy MD Work Phone: [employer] 05-19-2022 19:25-0400 SaO2% (BldA) [Mass fraction] 98 % Erin Lacy MD Work Phone: [employer] 05-19-2022 19:25-0400 Systolic blood pressure 110 mm[Hg] Erin Lacy MD Work Phone: [employer] 05-11-2022 19:17-0500 Body height 160 cm Anuj Quinn MD Work Phone: [employer] 05-11-2022 19:17-0500 Body mass index (BMI) [Ratio] 45.06 kg/m2 Anuj Quinn MD Work Phone: [employer] 05-11-2022 19:17-0500 Body temperature 98.01 [degF] Anuj Quinn MD Work Phone: [employer] 05-11-2022 19:17-0500 Body weight 115.39 kg Anuj Quinn MD Work Phone: [employer] 05-11-2022 19:17-0500 Diastolic blood pressure 91 mm[Hg] Anuj Quinn MD Work Phone: [employer] 05-11-2022 19:17-0500 Heart rate 78 /min Anuj Quinn MD Work Phone: [employer] 05-11-2022 19:17-0500 Respiratory rate 18 /min Anuj Quinn MD Work Phone: [employer] 05-11-2022 19:17-0500 SaO2% (BldA) [Mass fraction] 96 % Anuj Quinn MD Work Phone: [employer] 05-11-2022 19:17-0500 Systolic blood pressure 121 mm[Hg] Anuj Quinn MD Work Phone: [employer] 10-12-2021 18:31-0400 Heart rate 93 /min Rishabh Mancini MD Work Phone: [employer] 10-12-2021 18:31-0400 Respiratory rate 16 /min Rishabh Mancini MD Work Phone: [employer] 10-12-2021 18:31-0400 SaO2% (BldA) [Mass fraction] 97 % Rishabh Mancini MD Work Phone: [employer] 10-12-2021 18:12-0400 Body height 160 cm Rishabh Mancini MD Work Phone: [employer] 10-12-2021 18:12-0400 Body mass index (BMI) [Ratio] 47.12 kg/m2 Rishabh Mancini MD Work Phone: [employer] 10-12-2021 18:12-0400 Body temperature 99.19 [degF] Rishabh Mancini MD Work Phone: [employer] 10-12-2021 18:12-0400 Body weight 120.66 kg Rishabh Mancini MD Work Phone: [employer] 10-12-2021 18:12-0400 Diastolic blood pressure 77 mm[Hg] Rishabh Mancini MD Work Phone: [facility] 10-12-2021 18:12-0400 Systolic blood pressure 126 mm[Hg] Rishabh [facility]ancini MD Work Phone: [facility] 07-22-2021 10:38-0400 Body height 160 cm Clark [facility]oser MD [facility] 07-22-2021 10:38-0400 Body mass index (BMI) [Ratio] 47.63 kg/m2 Clark Moser MD Work Phone: [facility] 07-22-2021 10:38-0400 Body temperature 97.3 [degF] Clark Moser MD Work Phone[facility] 07-22-2021 10:38-0400 Body weight 121.97 kg Clark Moser MD [facility] Phone[facility] 07-22-2021 10:38-0400 Diastolic blood pressure 88 mm[Hg] Clark Moser MD [facility] Phone[facility] 07-22-2021 10:38-0400 Heart rate 104 /min Clark Moser MD [facility] Phone[facility] 07-22-2021 10:38-0400 Respiratory rate 18 /min Clark Moser MD [facility] Phone[facility] 07-22-2021 10:38-0400 SaO2% (BldA) [Mass fraction] 95 % Clark Moser MD Work Phone[facility] 07-22-2021 10:38-0400 Systolic blood pressure 126 mm[Hg] Clark Moser MD Work Phone: [facility] 05-15-2021 09:11-0500 Body height 160 cm Angelito Harvey [facility] 05-14-2021 10:41-0500 Body height 160 cm Farhat Vang MD Work Phone: [facility] 05-14-2021 10:41-0500 Body mass index (BMI) [Ratio] 44.96 kg/m2 Farhat Vang MD Work Phone: [facility] 05-14-2021 10:41-0500 Body temperature 97.81 [degF] Farhat Vang MD Work Phone: [facility] 05-14-2021 10:41-0500 Body weight 115.12 kg Farhat Vang MD Work Phone: [facility] 05-14-2021 10:41-0500 Diastolic blood pressure 78 mm[Hg] Farhat Vang MD Work Phone: [facility] 05-14-2021 10:41-0500 Heart rate 98 /min Farhat Vang MD Work Phone: [facility] 05-14-2021 10:41-0500 Respiratory rate 18 /min Farhat Vang MD Work Phone: [facility] 05-14-2021 10:41-0500 SaO2% (BldA) [Mass fraction] 97 % Farhat Vang MD Work Phone: [facility] 05-14-2021 10:41-0500 Systolic blood pressure 124 mm[Hg] Farhat Vang MD Work Phone: [facility] 04-16-2021 10:15-0500 Body height 160 cm Farhat Vang MD Work Phone: [facility] 04-16-2021 10:15-0500 Body mass index (BMI) [Ratio] 44.44 kg/m2 Farhat Vang MD Work Phone: [facility] 04-16-2021 10:15-0500 Body temperature 98.01 [degF] Farhat Vang MD Work Phone: [facility] 04-16-2021 10:15-0500 Body weight 113.81 kg Farhat Vang MD Work Phone: [facility] 04-16-2021 10:15-0500 Diastolic blood pressure 78 mm[Hg] Farhat Vang MD Work Phone: [facility] 04-16-2021 10:15-0500 Heart rate 100 /min Farhat Vang MD Work Phone: [facility] 04-16-2021 10:15-0500 Respiratory rate 18 /min Farhat Vang MD Work Phone: [facility] 04-16-2021 10:15-0500 SaO2% (BldA) [Mass fraction] 96 % Farhat Vang MD Work Phone: [facility] 04-16-2021 10:15-0500 Systolic blood pressure 122 mm[Hg] Farhat Vang MD Work Phone: [facility] 03-23-2021 12:40-0500 Body height 160 cm Anuj Quinn MD Work Phone: [facility] [employer] 03-23-2021 12:40-0500 Body mass index (BMI) [Ratio] 44.46 kg/m2 Anuj Quinn MD Work Phone: [employer] 03-23-2021 12:40-0500 Body temperature 99.7 [degF] Anuj Quinn MD Work Phone: [employer] 03-23-2021 12:40-0500 Body weight 113.85 kg Anuj Quinn MD Work Phone: [employer] 03-23-2021 12:40-0500 Diastolic blood pressure 74 mm[Hg] Anuj Quinn MD Work Phone: [employer] 03-23-2021 12:40-0500 Heart rate 107 /min Anuj Quinn MD Work Phone: [employer] 03-23-2021 12:40-0500 Respiratory rate 16 /min Anuj Quinn MD Work Phone: [employer] 03-23-2021 12:40-0500 SaO2% (BldA) [Mass fraction] 96 % Anuj Quinn MD Work Phone: [employer] 03-23-2021 12:40-0500 Systolic blood pressure 131 mm[Hg] Anuj Quinn MD Work Phone: [facility] 01-15-2021 10:43-0500 Body height 160 cm Holland Ann MD Work Phone: [facility] 01-15-2021 10:43-0500 Body mass index (BMI) [Ratio] 42.55 kg/m2 Holland Ann MD Work Phone: [facility] 01-15-2021 10:43-0500 Body temperature 97.39 [degF] Holland Ann MD Work Phone: [facility] 01-15-2021 10:43-0500 Body weight 108.95 kg Holland Ann MD Work Phone: [facility] 01-15-2021 10:43-0500 Diastolic blood pressure 66 mm[Hg] Holland Ann MD Work Phone: [facility] 01-15-2021 10:43-0500 Heart rate 101 /min Holland Ann MD Work Phone: [facility] 01-15-2021 10:43-0500 SaO2% (BldA) [Mass fraction] 96 % Holland Ann MD Work Phone: [facility] 01-15-2021 10:43-0500 Systolic blood pressure 112 mm[Hg] Holland Ann MD Work Phone: [facility] 12-27-2020 18:15-0400 Body temperature 98.49 [degF] Wayne Springer MD Work Phone: [employer] Work Phone: 12-27-2020 18:15-0400 Diastolic blood pressure 77 mm[Hg] Wayne Springer MD Work Phone: [employer] Work Phone: Comment on above: Simultaneous filing. User may not have s een previous data. 12-27-2020 18:15-0400 Heart rate 98 /min Wayne Springer MD Work Phone: [employer] Work Phone: 12-27-2020 18:15-0400 Respiratory rate 20 /min Wayne Springer MD Work Phone: [employer] Work Phone: 12-27-2020 18:15-0400 SaO2% (BldA) [Mass fraction] 95 % Wayne Springer MD Work Phone: [employer] Work Phone: Comment on above: Simultaneous filing. User may not have s een previous data. 12-27-2020 18:15-0400 Systolic blood pressure 107 mm[Hg] Wayne Springer MD Work Phone: [employer] Work Phone: Comment on above: Simultaneous filing. User may not have s een previous data. 11-20-2020 21:07-0400 Body height 160 cm Anuj Quinn MD Work Phone: [employer] Work Phone: 11-20-2020 21:07-0400 Body mass index (BMI) [Ratio] 38.62 kg/m2 Anuj Quinn MD Work Phone: [employer] Work Phone: 11-20-2020 21:07-0400 Body temperature 98.6 [degF] Anuj Quinn MD Work Phone: [employer] Work Phone: 11-20-2020 21:07-0400 Body weight 98.88 kg Anuj Quinn MD Work Phone: [employer] Work Phone: 11-20-2020 21:07-0400 Diastolic blood pressure 65 mm[Hg] Anuj Quinn MD Work Phone: [employer] Work Phone: 11-20-2020 21:07-0400 Heart rate 84 /min Anuj Quinn MD Work Phone: [employer] Work Phone: 11-20-2020 21:07-0400 Respiratory rate 16 /min Anuj Quinn MD Work Phone: [employer] Work Phone: 11-20-2020 21:07-0400 SaO2% (BldA) [Mass fraction] 97 % Anuj Qunin MD Work Phone: [employer] Work Phone: 11-20-2020 21:07-0400 Systolic blood pressure 113 mm[Hg] Anuj Quinn MD Work Phone: [employer] Work Phone: 11-07-2020 16:28-0400 Body height 160 cm Nicholas Roger MD Work Phone: [employer] Work Phone: 11-07-2020 16:28-0400 Body mass index (BMI) [Ratio] 38.26 kg/m2 Nicholas Roger MD Work Phone: [employer] Work Phone: 11-07-2020 16:28-0400 Body temperature 98.8 [degF] Nicholas Roger MD Work Phone: [employer] Work Phone: 11-07-2020 16:28-0400 Body weight 97.98 kg Nicholas Roger MD Work Phone: [employer] Work Phone: 11-07-2020 16:28-0400 Diastolic blood pressure 71 mm[Hg] Nicholas Roger MD Work Phone: [employer] Work Phone: 11-07-2020 16:28-0400 Heart rate 98 /min Nicholas Roger MD Work Phone: [employer] Work Phone: 11-07-2020 16:28-0400 Respiratory rate 18 /min Nicholas Roger MD Work Phone: [employer] Work Phone: 11-07-2020 16:28-0400 SaO2% (BldA) [Mass fraction] 94 % Nicholas Roger MD Work Phone: [employer] Work Phone: 11-07-2020 16:28-0400 Systolic blood pressure 120 mm[Hg] Nicholas Roger MD Work Phone: [employer] Work Phone: 07-09-2020 10:52-0400 Body height 160 cm Zelda Bautista CNP Work Phone: [facility] 07-09-2020 10:52-0400 Body mass index (BMI) [Ratio] 41.27 kg/m2 Zelda Bautista CNP Work Phone: [facility] 07-09-2020 10:52-0400 Body weight 105.69 kg Zelda Bautista CNP Work Phone: [facility] 07-09-2020 10:52-0400 Diastolic blood pressure 70 mm[Hg] Zelda Bautista CNP Work Phone: [facility] 07-09-2020 10:52-0400 Heart rate 97 /min Zelda Bautista CNP Work Phone: [facility] 07-09-2020 10:52-0400 Systolic blood pressure 101 mm[Hg] Zelda Bautista CNP Work Phone: [facility] 06-24-2020 09:48-0400 Body mass index (BMI) [Ratio] 40.92 kg/m2 Anuj Quinn MD Work Phone: [employer] Work Phone: 06-24-2020 09:48-0400 Body temperature 97.9 [degF] Anuj Quinn MD Work Phone: [employer] Work Phone: 06-24-2020 09:48-0400 Body weight 104.78 kg Anuj Quinn MD Work Phone: [employer] Work Phone: 06-24-2020 09:48-0400 Diastolic blood pressure 64 mm[Hg] Anuj Quinn MD Work Phone: [employer] Work Phone: 06-24-2020 09:48-0400 Heart rate 120 /min Anuj Quinn MD Work Phone: [employer] Work Phone: 06-24-2020 09:48-0400 Respiratory rate 18 /min Anuj Quinn MD Work Phone: [employer] Work Phone: 06-24-2020 09:48-0400 SaO2% (BldA) [Mass fraction] 100 % Anuj Quinn MD Work Phone: [employer] Work Phone: 06-24-2020 09:48-0400 Systolic blood pressure 115 mm[Hg] Anuj Quinn MD Work Phone: [employer] Work Phone: 06-09-2020 10:44-0400 Body height 160 cm Lelo Gallegos MD Work Phone: [facility] 06-09-2020 10:44-0400 Body mass index (BMI) [Ratio] 41.27 kg/m2 Lelo Gallegos MD Work Phone: [facility] 06-09-2020 10:44-0400 Body weight 105.69 kg Lelo Gallegos MD Work Phone: [facility] 06-09-2020 10:44-0400 Diastolic blood pressure 75 mm[Hg] Lelo Gallegos MD Work Phone: [facility] 06-09-2020 10:44-0400 Heart rate 116 /min Lelo Gallegos MD Work Phone: [facility] 06-09-2020 10:44-0400 Systolic blood pressure 110 mm[Hg] Lelo Gallegos MD Work Phone: [facility] 03-26-2020 22:17-0500 Pulse (Heart Rate) 98 /min Brie Moreno [facility] 03-26-2020 21:43-0500 BP Diastolic 66 mm[Hg] Brie IsaVALOREM [facility] [place] [facility] [place] 03-26-2020 21:43-0500 BP Systolic 99 mm[Hg] [facility] [place] 03-26-2020 21:43-0500 Pulse Oximetry 95 % [facility]rie [facility] [place] 03-26-2020 20:50-0500 Respiratory Rate 16 /min Brie Moreno [facility] [place] 03-26-2020 20:13-0500 BMI (Body Mass Index) 40.14 kg/m2 Brie [facility]OR[facility] 03-26-2020 20:13-0500 Body Temperature 98.2 [degF] Brie Moreno [facility] [place] 03-26-2020 20:13-0500 Body weight 102.78 kg [facility] [place] 02-15-2020 18:22-0500 BMI (Body Mass Index) 39.75 kg/m2 Brie [facility] 02-15-2020 18:22-0500 Body Temperature 98.6 [degF] [facility] [place] 02-15-2020 18:22-0500 Body weight 101.79 kg Brie Moreno [facility] , [place] 02-15-2020 18:22-0500 BP Diastolic 78 mm[Hg] Brie Moreno [facility] , [place] 02-15-2020 18:22-0500 BP Systolic 127 mm[Hg] Brie [facility] , [place] 02-15-2020 18:22-0500 Height 160 cm Brie Moreno [facility] , [place] 02-15-2020 18:22-0500 Pulse (Heart Rate) 92 /min Brie Moreno [facility] 02-15-2020 18:22-0500 Pulse Oximetry 99 % Brie Moreno [facility] , [place] 02-15-2020 18:22-0500 Respiratory Rate 20 /min Brie Moreno [facility], [place] 11-20-2019 18:48-0400 BP Diastolic 75 mm[Hg] [facility] 11-20-2019 18:48-0400 BP Systolic 128 mm[Hg] [facility] 11-20-2019 18:48-0400 Pulse (Heart Rate) 83 /min [facility] 11-20-2019 18:48-0400 Pulse Oximetry 97 % [facility], [place] 11-20-2019 18:48-0400 Respiratory Rate 18 /min [facility] 11-20-2019 17:00-0400 BMI (Body Mass Index) 36.31 kg/m2 [facility] 11-20-2019 17:00-0400 Body Temperature 98.4 [degF] [facility] 11-20-2019 17:00-0400 Body weight 92.99 kg [facility] 11-03-2019 11:37-0400 BMI (Body Mass Index) 34.47 kg/m2 [facility] 11-03-2019 11:37-0400 Body Temperature 98.71 [degF] [facility] 11-03-2019 11:37-0400 Body weight 88.27 kg [facility] 11-03-2019 11:37-0400 BP Diastolic 66 mm[Hg] [facility] 11-03-2019 11:37-0400 BP Systolic 117 mm[Hg] [facility], [place] 11-03-2019 11:37-0400 Height 160 cm [facility], [place] 11-03-2019 11:37-0400 Pulse (Heart Rate) 87 /min [place] 11-03-2019 11:37-0400 Pulse Oximetry 99 % [facility] [place] [place] 11-03-2019 11:37-0400 Respiratory Rate 20 /min [place] 08-13-2019 19:42-0400 BMI (Body Mass Index) 31 kg/m2 [facility] 08-13-2019 19:42-0400 Body Temperature 98.6 [degF] [facility] 08-13-2019 19:42-0400 Body weight 79.38 kg [facility] 08-13-2019 19:42-0400 Height 160 cm [facility] 08-13-2019 19:40-0400 BP Diastolic 60 mm[Hg] [facility] 08-13-2019 19:40-0400 BP Systolic 156 mm[Hg] [facility] 08-13-2019 19:40-0400 Pulse (Heart Rate) 138 /min [facility] 08-13-2019 19:40-0400 Pulse Oximetry 98 % [facility] 08-13-2019 19:40-0400 Respiratory Rate 16 /min [facility] 06-17-2019 12:45-0400 Respiratory Rate 18 /min [facility] 06-17-2019 07:54-0400 Body Temperature 97.81 [degF] [facility] 06-17-2019 07:54-0400 BP Diastolic 66 mm[Hg] [facility] 06-17-2019 07:54-0400 BP [facility]stolic 99 mm[Hg] [facility] 06-17-2019 07:54-0400 Pulse (Heart Rate) 82 /min [facility] 06-17-2019 07:54-0400 Pulse Oximetry 94 % [facility] 06-14-2019 08:15-0400 BMI (Body Mass Index) 32.92 kg/m2 [facility] 06-14-2019 08:15-0400 Body weight 81.65 [facility] 06-14-2019 08:15-0400 Height 157.5 cm [facility] 06-14-2019 04:20-0400 Pulse (Heart Rate) 83 /min [facility] [place] [place] 06-14-2019 04:05-0400 BP Diastolic 58 mm[Hg] [facility] [place] [facility] [place] 06-14-2019 04:05-0400 BP Systolic 95 mm[Hg] [facility] [place] [facility] [place] 06-14-2019 04:05-0400 Pulse Oximetry 95 % [facility] [place] [facility] [place] 06-14-2019 01:12-0400 Respiratory Rate 18 /min [facility] [place] 06-14-2019 00:10-0400 Body Temperature 100.51 [degF] [facility] 06-13-2019 22:00-0400 BMI (Body Mass Index) 32.31 kg/m2 [facility] [place] 06-13-2019 22:00-0400 Body weight 82.74 kg [facility] [place] [facility] [place] 06-13-2019 22:00-0400 Height 160 cm [facility] [place] [facility] [place] 04-28-2019 19:58-0500 Body Temperature 98.8 [degF] [facility] [place] 04-28-2019 19:58-0500 BP Diastolic 70 mm[Hg] [facility] [place] [facility] [place] 04-28-2019 19:58-0500 BP Systolic 98 mm[Hg] [facility] [place] [facility] [place] 04-28-2019 19:58-0500 Pulse (Heart Rate) 119 /min [facility] [place] 04-28-2019 19:58-0500 Pulse Oximetry 100 % [facility] [place] [facility] [place] 04-28-2019 19:58-0500 Respiratory Rate 30 /min [facility] [place] 04-28-2019 19:54-0500 BMI (Body Mass Index) 30.65 kg/m2 [facility] [place] 04-28-2019 19:54-0500 Body weight 78.47 kg [facility] [place] [facility] [place] 04-28-2019 19:54-[address] [facility] [place] , [place] Encounters Encounter Date Encounter Type Care Provider Facility Start: 11-09-2023 End: 11-09-2023 ambulatory MARK ELIANA Not Available Start: 10-26-2023 End: 10-26-2023 ambulatory MARK ELIANA Not Available Start: 10-05-2023 End: 10-05-2023 ambulatory VIOLET JUAREZ [facility] Start: 10-05-2023 End: 10-05-2023 Subsequent hospital visit by physician Violet Juarez MD Work Phone: [id number] Start: 10-05-2023 End: 10-05-2023 Emergency department patient visit LINDA Vijaya [facility] Start: 10-05-2023 End: 10-05-2023 Emergency department patient visit [facility] Vijaya [facility] Start: 09-12-2023 End: 09-12-2023 ambulatory MARK ELIANA Not Available Start: 08-16-2023 End: 08-16-2023 ambulatory MARK ELIANA Not Available Start: 07-26-2023 End: 07-26-2023 ambulatory BLAKERADHA KAUFFMAN [facility] Start: 07-19-2023 End: 07-19-2023 ambulatory MARK ELIANA Not Available Start: 06-21-2023 End: 06-21-2023 ambulatory MARK ELIANA Not Available Start: 05-20-2023 End: 05-20-2023 ambulatory MARK ELIANA Not Available Start: 05-13-2023 End: 05-13-2023 Emergency department patient visit Jonathan Covarrubiase Facility:[facility] Start: 05-13-2023 End: 05-13-2023 Emergency department patient visit Jonathan Martinze [facility] Start: 05-11-2023 End: 05-12-2023 Emergency department patient visit Zac Fields Facility:[facility] Start: 05-11-2023 End: 05-11-2023 Emergency department patient visit Zac Fields [facility] Start: 05-10-2023 End: 05-10-2023 Emergency department patient visit LINDA Vijaya SILVER [facility] Start: 05-10-2023 End: 05-10-2023 Emergency department patient visit Chet Berumen Work Phone: [facility] Comment on above: Toothache (Primary D x); Dental decay Start: 12-27-2022 End: 12-27-2022 ambulatory [facility] Start: 11-23-2022 End: 11-23-2022 ambulatory MARK RAYRAY SALCEDOZIO [facility] Start: 09-04-2022 End: 09-04-2022 Emergency department patient visit Erin Lacy MD Work Phone: [facility] Comment on above: Sprain of right ankl e, unspecified ligament, initial encounter (Primary Dx) Start: 06-29-2022 End: 06-30-[address] MARK DUMONT . Facility: Start: 06-29-2022 End: 06-30-2022 ambulatory Linda Sheppard Facility:[facility] Start: 06-29-2022 End: 06-29-2022 Pain Management Todd Smart [facility] Start: 06-14-2022 End: 06-14-[address] MARK DUMONT . Facility:[facility] Start: 05-19-2022 End: 05-19-2022 Emergency department patient visit Erin Lacy MD Work Phone: [facility] Comment on above: Dry socket (Primary Dx) Start: 05-11-2022 End: 05-11-2022 Emergency department patient visit Anuj Quinn MD Work [facility]: [facility] (Primary Dx) Start: 07-07-2021 ambulatory BRIE ROCA [facility] Start: 06-18-2021 ambulatory [facility] Start: 06-17-2021 End: 06-18-2021 ambulatory [facility] Start: 05-15-2021 End: 05-19-2021 ambulatory [facility] Start: 05-15-2021 End: 05-15-2021 Nutrition therapy Farhat Vang MD Work Phone: [facility] Comment on above: Morbid obesity with body mass index (BMI) of 40.0 or higher (HCC) Start: 05-14-2021 End: 05-18-2021 ambulatory [facility] Start: 05-14-2021 End: 05-14-2021 Office outpatient visit 15 minutes Farhat Vang MD Work Phone: [facility] Comment on above: Anxiety and depressi on (Primary Dx); At risk for obstructive sleep apnea; Chronic bilateral low back pain without sciatica; Hepatitis C antibody positive in blood; Body mass index 40.0-44.9, adult (HCC); History of opioid abuse (HCC) Start: 04-16-2021 End: 04-20-2021 ambulatory [facility] Start: 04-16-2021 End: 04-16-2021 Initial preventive medicine new pt age 18-39yrs Farhat Vang MD Work Phone: [facility] Comment on above: Encounter for genera l adult medical examination with abnormal findings (Primary Dx); Anxiety and depression; History of opioid abuse (HCC); Morbid obesity with body mass index (BMI) of 40.0 or higher (HCC) Start: 04-16-2021 End: 04-16-2021 Patient encounter status Farhat Vang MD Work Phone: [facility] Start: 03-23-2021 End: 03-23-2021 Emergency department patient visit Anuj Quinn MD Work Phone: [facility] Comment on above: COVID-19 (Primary Dx ); Omphalitis in adult Start: 02-16-2021 End: 02-20-2021 ambulatory [facility] Start: 02-12-2021 End: 02-16-2021 ambulatory PHYSIC[facility] Start: 02-10-2021 End: 02-14-2021 ambulatory [facility] Start: 02-02-2021 End: 02-06-2021 ambulatory PHYSICIAN [facility] Start: 01-15-2021 Documentation procedure Jeimy goodman [facility] Start: 01-15-2021 End: 01-15-2021 ambulatory HOLLAND WHIPPLE SETH [facility] Start: 01-15-2021 End: 01-15-2021 Office outpatient new 30 minutes Holland Ann MD Work Phone: [facility] Comment on above: Hemorrhoids, unspeci fied hemorrhoid type Start: 12-29-2020 End: 01-02-2021 ambulatory PHYSICIAN [facility] Start: 12-27-2020 End: 12-27-2020 Emergency department patient visit Wayne Springer MD Work Phone: [facility] Comment on above: Viral syndrome (Prim prakash Dx) Start: 11-20-2020 End: 11-20-2020 Emergency department patient visit Anuj Quinn MD Work Phone: [facility] Comment on above: Strain of rhomboid m uscle, initial encounter; Chest wall muscle strain, initial encounter Start: 11-07-2020 End: 11-07-2020 Emergency department patient visit Nicholas Roger MD Work Phone: [facility] Comment on above: Viral URI (Primary D x) Start: 08-28-2020 End: 08-30-2020 Evaluation and management of inpatient [facility] Start: 08-25-2020 End: 08-25-2020 ambulatory PHYSICIAN [facility] Start: 07-29-2020 End: 08-02-2020 ambulatory PHYSICIAN [facility] Start: 07-22-2020 End: 07-26-2020 ambulatory [facility] ANGIE [facility] Start: 07-22-2020 End: 07-22-2020 Telemedicine consultation with patient Lelo Gallegos MD Work Phone: [facility] Comment on above: Diet controlled gest ational diabetes mellitus (GDM) in third trimester Start: 07-10-2020 ambulatory LELO ADAMS [facility] Start: 07-09-2020 End: 07-09-2020 ambulatory ZELDA BAUTISTA [facility] Start: 07-09-2020 End: 07-09-2020 Office outpatient visit 15 minutes Zelda Bautista CNP Work Phone: [facility] Comment on above: Diet controlled gest ational diabetes mellitus (GDM) in third trimester (Primary Dx) Start: 06-24-2020 End: 06-24-2020 Emergency department patient visit Anuj Quinn MD Work Phone: [facility] Comment on above: Acute frontal sinusi tis, recurrence not specified (Primary Dx) Start: 06-10-2020 End: 06-10-2020 Nutrition therapy Lelo Gallegos Work Phone: [facility] Comment on above: Diet controlled gest ational diabetes mellitus (GDM) in second trimester Start: 06-09-2020 End: 06-09-2020 Office outpatient new 30 minutes Roslyn Stevenson MD Work Phone: [facility] Comment on above: Diet controlled gest ational diabetes mellitus (GDM) in second trimester Start: 05-27-2020 End: 05-31-2020 ambulatory PHYSICIAN [facility] Start: 05-21-2020 End: 05-25-2020 ambulatory PHYSICIAN [facility] Start: 03-26-2020 End: 03-26-2020 Emergency [...] department patient visit Anuj Quinn Work Phone: [facility] Comment on above: Bacterial vaginosis (Primary Dx); Trichimoniasis; Furuncle of left axilla Start: 11-03-2019 End: 11-03-2019 Emergency department patient visit Wayne Springer Work Phone: [facility] Comment on above: Poison arabella (Primary Dx) Start: 08-20-2019 End: 08-21-2019 Patient encounter procedure HODA CASSY [facility] Start: 08-20-2019 End: 08-20-2019 Subsequent hospital visit by physician [facility] Start: 08-13-2019 End: 08-13-2019 Emergency department patient visit Christian Martinez Work Phone: [facility] Comment on above: Heroin abuse (HCC) ( Primary Dx) Start: 06-20-2019 End: 06-20-2019 Patient encounter procedure Alisa Palencia Work Phone: [facility] Comment on above: Hepatitis C virus in fection without hepatic coma, unspecified chronicity (Primary Dx) Start: 06-18-2019 End: 06-18-2019 Documentation procedure Taryn Torres [facility] Start: 06-18-2019 Follow-up encounter Taryn Cartagena [facility] Comment on above: Transition Of Care Start: 06-18-2019 End: 06-18-2019 Patient encounter procedure Taryn Kike Choe [facility] Start: 06-14-2019 End: 06-17-2019 Evaluation and management of inpatient [facility] Work Phone: [facility] 1 Comment on [...] screening done Lelo Gallegos MD Work Phone: [facility] Start: 12-20-2016 End: 01-02-2020 Encounter for gynecological examination (general) (routine) without abnormal findings Jeimy Tan SURGEON/PRESIDENT [facility] Procedures Date Procedure Procedure Detail Performing Clinician [...] of 2) Shingles Vaccine (1 of 2) [facility] [place], [place] Start: 12-29-2025 Screening for malignant neoplasm of cervix Pap Smear [facility] Start: 10-31-2024 Screening for malignant neoplasm of cervix Pap Smear [facility] Start: 12-30-2023 Screening for malignant neoplasm of cervix [facility] Start: 11-11-2023 Respiratory Syncytial Virus (RSV) or age 60 yrs+ (1 - Risk 1-dose series) Respiratory Syncytial Virus (RSV) or age 60 yrs+ (1 - Risk 1-dose series) [facility] Start: 11-10-2023 End: 11-10-2023 Patient encounter procedure 11/10/2023 10:00 AM EDT [facility] [address] [place] [address] [facility] Start: 10-27-2023 End: 10-27-2023 Patient encounter procedure 10/27/2023 10:00 AM EDT [facility] [address] [place] [address] [facility] Start: 10-13-2023 End: 10-13-2023 Patient encounter procedure 10/13/2023 10:00 AM EDT [facility] [address] [facility] [address] [place] [address] Return in about 2 weeks (around 10/04/2023) for twins, dopplers, growth, transvag. [facility] Comment on above: Return in about 2 weeks (around ) for twins, dopplers, growth, transvag. Start: 10-07-2023 Tdap Vaccine during Tdap Vaccine during [facility] Start: 10-06-2023 Influenza vaccination Flu vaccine (#1) [facility] Start: 10-31-2022 Screening for malignant neoplasm of cervix [facility] Work Phone: Start: 10-05-2022 Influenza vaccination Flu vaccine (#1) [facility] Start: 04-16-2022 History and physical examination, annual for health maintenance Wellness Visit [facility] Start: 02-13-2022 Depression Remission Assessment (PHQ9) Depression Remission Assessment (PHQ9) [facility] Start: 12-29-2021 History and physical examination, annual for health maintenance Wellness Visit [facility] Start: 11-12-2021 End: 11-12-2021 Patient encounter procedure 11/12/2021 Office Visit Primary Care Farhat Vang MD [address] [address] [facility] Start: 11-05-2021 Influenza vaccination [facility] Start: 10-05-2021 Influenza vaccination Flu vaccine (#1) ALEXANDRA SIVA [facility] Start: 06-26-2021 End: 06-26-2021 Nutrition therapy 06/26/2021 Nutrition Nutrition Farhat Vang MD [address] [facility] [address] [place] [address] [facility] Start: 05-15-2021 End: 05-15-2021 Nutrition therapy 05/15/2021 Nutrition Nutrition Angelito Harvey RD [facility] Start: 05-14-2021 End: 05-14-2021 Patient encounter procedure 05/14/2021 Office Visit Primary Care Farhat Vang MD [address] [facility] [address] [place] [address] [facility] Start: 03-17-2021 Depression screening using PHQ-9 (Patient Health Questionnaire 9) score Depression Screening (PHQ9) [facility] Start: 01-15-2021 Depression Remission Assessment (PHQ9) Depression Remission Assessment (PHQ9) [facility] Start: 01-09-2021 Hemoglobin A1c measurement A1C [facility] Start: 12-09-2020 HbA1c (Bld) [Mass fraction] A1C [facility] Start: 12-09-2020 Hemoglobin A1c measurement A1C [facility] Start: 11-05-2020 Influenza vaccination [facility] Start: 10-31-2020 History and physical examination, annual for health maintenance Wellness Visit [facility] Start: 08-28-2020 End: 08-28-2020 Admission to same day surgery center 08/28/2020 Surgery Obstetrics Roslyn Stevenson MD [address] [place] [address] [phone] SECTION [facility] Comment on above: SECTION Start: 08-28-2020 Subsequent hospital visit by physician 08/28/2020 Hospital Encounter Obstetrics Roslyn Stevenson MD [address] [place] [address] [phone] [facility] Start: 08-25-2020 End: 08-25-2020 Office Visit 08/25/2020 Office Visit Endocrinology Zelda Bautista, [employer]ED[employer] READ[employer] TEACHER [address] [place] [address] [phone] [facility] Start: 07-31-2020 End: 07-31-2020 Office Visit 07/31/2020 Office Visit Endocrinology Benito Krueger, MARK [address] [place] [address] [phone] [facility] Start: 07-29-2020 End: 07-29-2020 Patient encounter procedure 07/29/2020 Routine Obstetrics and Gynecology Regla Dias CNM [address] [place] [phone] [facility] [employer] - An Affiliate of [facility] Start: 07-22-2020 End: 07-22-2020 Telemedicine consultation with patient 07/22/2020 Telemedicine Nutrition Lelo Gallegos MD [address] [place] [address] [phone] [facility] Start: 07-17-2020 End: 07-17-2020 Patient encounter procedure 07/17/2020 Routine Obstetrics and Gynecology Yvonne Santos MD [address] [place] [address] [facility] [employer] - An Affiliate of [facility] Start: 07-09-2020 End: 07-09-2020 Office Visit 07/09/2020 Office Visit Endocrinology Zelda Bautista, REMEDIAL READING TEACHER [address] [place] [address] [phone] [facility] Start: 07-04-2020 End: 07-04-2020 Patient encounter procedure 07/04/2020 Routine Obstetrics and Gynecology Radha Pantoja MD [address] [place] [phone] [facility] [employer] - An Affiliate of [facility] Start: 06-26-2020 End: 06-26-2020 Patient encounter procedure 06/26/2020 Office Visit Endocrinology Janie Chen PA-C [address] [place] [address] [phone] [facility] Start: 06-24-2020 End: 06-24-2020 Nutrition [facility] Start: 06-19-2020 End: 06-19-2020 Routine 06/19/2020 Routine Obstetrics and Gynecology Larissa, Regla Arriaga CNM [address] [place] [phone] [facility] [employer] - An Affiliate of [facility] Start: 05-17-2020 Depression screening using PHQ-9 (Patient Health Questionnaire 9) score Depression Screening (PHQ9) [facility] Start: 2020 Screening for malignant neoplasm of cervix [facility] Start: 02-26-2020 End: 02-26-2020 Initial 02/26/2020 Initial Obstetrics and Gynecology Jai Huerta MD [address] [facility] [address] [place] [address] [facility] [place] [employer] Start: 11-06-2019 Influenza vaccination [facility], [place] Start: 11-06-2019 Influenza vaccination given [facility] Start: 08-06-2019 Screening for malignant neoplasm of cervix Pap Smear [facility] Start: 06-20-2019 End: 06-20-2019 Office Visit 06/20/2019 Office Visit Transition of Care Alisa Palencia, REMEDIAL READING TEACHER [address] [facility] [address] [place] [address] [phone] [facility] Start: 11-05-2018 Influenza vaccination Flu vaccine (#1) [place], [place] Start: 11-05-2018 Influenza vaccination given Sequential Influenza Vaccine (#1) [facility] Start: 03-21-2015 Cervical cancer screen Cervical cancer screen [place], [place] Start: 03-21-2015 Screening for malignant neoplasm of cervix Cervical cancer screen [place] Start: 04-05-2014 Screening for malignant neoplasm of cervix Pap smear [facility] Start: 2009 DTaP/Tdap/Td vaccine (1 - Tdap) DTaP/Tdap/Td vaccine (1 - Tdap) [place] Start: 2009 Hepatitis B vaccine (1 of 3 - Risk 3-dose series) Hepatitis B vaccine (1 of 3 - Risk 3-dose series) [facility] Work Phone: Start: 2008 Hepatitis C screening Hepatitis C screen [facility] Start: 2006 COVID-19 Vaccine (1) COVID-19 Vaccine (1) [facility] Start: 2005 HIV screen HIV screen [place], [place] Start: 2005 HIV screening HIV screen [facility] Start: 2002 COVID-19 Vaccine (1) COVID-19 Vaccine (1) [facility] Start: 2002 Depression Monitoring Depression Monitoring [facility] Start: 2001 DTaP/Tdap/Td vaccine (1 - Tdap) DTaP/Tdap/Td vaccine (1 - Tdap) [place] Start: 2001 DTaP/Tdap/Td vaccine (5 - Tdap) DTaP/Tdap/Td vaccine (5 - Tdap) [facility] Start: 2000 Albumin DL <= 20 mg/L (U) [Mass/Vol] Urine Microalbumin [facility] Start: 2000 Diabetic foot examination Foot Exam [facility] Start: 2000 Microalbumin measurement, urine, quantitative Urine Microalbumin [facility] Start: 2000 Ophthalmic examination and evaluation Ophthalmology Exam [facility] Start: 1996 Pneumococcal 0-64 years Vaccine (1 of 1 - PPSV23) Pneumococcal 0-64 years Vaccine (1 of 1 - PPSV23) [place] Start: 1996 Pneumococcal Vaccine: Ped or At-Risk (1 of 2 - PPSV23) Pneumococcal Vaccine: Ped or At-Risk (1 of 2 - PPSV23) [facility] Start: 1995 COVID-19 Vaccine (1) COVID-19 Vaccine (1) [facility] Start: 1993 History and physical examination, annual for health maintenance Wellness Visit [facility] Start: 1991 Varicella vaccine (1 of 2 - 2-dose childhood series) Varicella vaccine (1 of 2 - 2-dose childhood series) [facility] Start: 1990 COVID-19 Vaccine (#1) COVID-19 Vaccine (#1) [facility] Start: 1990 Hepatitis B vaccine (1 of 3 - 3-dose series) Hepatitis B vaccine (1 of 3 - 3-dose series) [facility] Start: 1990 Hepatitis C screening Hepatitis C screen [facility] Start: 1990 Tetanus vaccination Tetanus: Every 10yrs [facility] Anti smooth muscle antibody IgA level Anti-Smooth Muscle Antibody Lab Add-On 06/15/2019 1:50 PM EDT [facility] Antimitochondrial antibody titer Antimitochondrial Antibody Lab Add-On 06/15/2019 1:50 PM EDT [facility] End: 11-20-2019 C.trachomatis N.gonorrhoeae DNA, Urine C.trachomatis N.gonorrhoeae DNA, Urine Microbiology STAT One Time for 1 Occurrences starting 11/20/2019 until 11/20/2019 [place], [place] Comment on above: One Time for 1 Occurrences starting 11/05 until 11/20/2019 C.trachomatis N.gonorrhoeae DNA, Urine C.trachomatis N.gonorrhoeae DNA, Urine Microbiology Stat [employer] Label print 11/20/2019 5:55 PM EDT [place] End: 03-26-2020 Covid-19 Ambulatory Covid-19 Ambulatory Lab Routine Once for 1 Occurrences starting 03/26/2020 until 03/26/2020 [place] Comment on above: Once for 1 Occurrences starting 03/26/19 21 until 03/26/2020 Covid-19 Ambulatory Covid-19 Amb ulatory Lab Routine 03/26/2020 8:44 PM EST [place] End: 06-13-2019 Culture, Blood 1 Culture, Blood 1 Microbiology STAT One Time for 1 Occurrences starting 06/13/2019 until 06/13/2019 [place] Comment on above: One Time for 1 Occurrences starting 10/2019 until 06/13/2019 Culture, Blood 1 [place], [place] End: 03-23-2021 Culture, Wound [facility] Work Phone: Comment on above: One Time for 1 Occurrences starting 03/07 until 03/23/2021 Cytomegalovirus DNA assay CMV DN A Detection and Quant, Blood Lab Routine 06/15/2019 1:50 PM EDT [facility] Kirsten-Hazel Virus P CR, Quantitative Kirsten-Hazel Virus PCR, Quantitative Lab Routine 06/15/2019 1:50 PM EDT [facility] End: 04-16-2022 Hemoglobin A1c/Hemoglobin.total in Blood Hemoglobin A1c Lab Routine Encounter for general adult medical examination with abnormal findings 1 Occurrences starting 04/16/2021 until 04/16/2022 [facility] Work Phone: Comment on above: 1 Occurrences starting 04/16/2021 until 04/16/2022 Hemoglobin A1c/Hemoglobin.total in Blood Hemoglobin A1c Lab Routine Encounter for general adult medical examination with abnormal findings 04/16/2021 10:58 AM [facility] End: 04-16-2022 Hepatitis C antibody measurement Hepatitis C Antibody Lab Routine Encounter for general adult medical examination with abnormal findings 1 Occurrences starting 04/16/2021 until 04/16/2022 [facility] Comment on above: 1 Occurrences starting 04/16/2021 until 04/16/2022 Hepatitis C antibody measurement Hepatitis C Antibody Lab Routine Encounter for general adult medical examination with abnormal findings 04/16/2021 10:58 AM [facility] MDI Treatment MDI Treatment Re spiratory Care Routine Every 6hr As Needed until discontinued starting 03/26/2020 [place] Comment on above: Every 6hr As Needed until discontinued s tarting 03/26/2020 Nonrebreather mask oxygen Nonreb reather mask oxygen Respiratory Care Routine As Needed until discontinued starting 10/05/2023 [facility] Comment on above: As Needed until discontinued starting Nuclear Ab IF (S) [Titer] KENIA La b Add-On 06/15/2019 1:50 PM EDT [facility] End: 06-24-2020 Urinalysis, reflex to microscopic Urinalysis, reflex to microscopic Lab STAT One Time for 1 Occurrences starting 06/24/2020 until 06/24/2020 [employer] Work Phone: Comment on above: One Time for 1 Occurrences starting 06/06 until 06/24/2020 End: 05-14-2022 XR Lumbar Spine Complete AP/Lat w Obls XR Lumbar Spine Complete AP/Lat w Obls Imaging Routine Chronic bilateral low back pain without sciatica 1 Occurrences starting 05/14/2021 until 05/14/2022 [employer] Work Phone: Comment on above: 1 Occurrences starting 05/14/2021 until 05/14/2022 Payers Date Payer Category Payer Medicaid [employer] [id number] 2021-Present [phone] [address] [place] [address] [id number]. [id number] 2021 Unknown [id number] 1.2.840.359120.1.13.239.2. 7.3.174193.315 2017 Medicaid [id number] 1.2.840.290601.1.13.385.2. 7.3.185869.315 2012 Medicaid [id number] 1.2.840.012874.1.13.239.2. 7.3.762863.315 2012 Medicaid [id number] 2008 Private Health Insurance [id number] 1990 Unknown [id number] 2.16.840.1.471864.3.579.2. 173 1990 Unknown [id number] 2.16.840.1.721428.3.579.2. 900 1990 Unknown [id number] 2.16.840.1.525632.3.579.2. 900 1990 Unknown [id number] 2.16.840.1.171356.3.579.2. 900 1990 Unknown [id number] 2.16.840.1.180420.3.579.2. 900 1990 Unknown [id number] 2.16.840.1.420772.3.579.2. 900 1990 Unknown [id number] 2.16.840.1.128364.3.579.2. 900 1990 Unknown [id number] 2.16.840.1.422217.3.579.2. 900 1990 Unknown [id number] 2.16.840.1.533703.3.579.2. 903 1990 Unknown [id number] 2.16.840.1.017703.3.579.2. 903 1990 Unknown [id number] 2.16.840.1.313876.3.579.2. 903 1990 Unknown [id number] 2.16.840.1.309293.3.579.2. 903 1990 Unknown [id number] 2.16.840.1.566547.3.579.2. 903 1990 Unknown [id number] 2.16.840.1.316182.3.579.2. 903 1990 Unknown [id number] 2.16.840.1.556638.3.579.2. 903 1990 Unknown [id number] 2.16.840.1.228021.3.579.2. 903 1990 Unknown [id number] 2.16.840.1.339662.3.579.2. 903 1990 Unknown [id number] 2.16.840.1.066987.3.579.2. 903 1990 Unknown [id number] 2.16.840.1.967954.3.579.2. 903 1990 Unknown [id number] 2.16.840.1.908572.3.579.2. 903 1990 Unknown [id number] 2.16.840.1.806511.3.579.2. 903 1990 Unknown [id number] 2.16.840.1.186297.3.579.2. 903 1990 Unknown [id number] 2.16.840.1.684783.3.579.2. 903 1990 Unknown [id number] 2.16.840.1.632384.3.579.2. 593 1990 Unknown [id number] 2.16.840.1.038916.3.579.2. 593 1990 Unknown [id number] 2.16.840.1.686067.3.579.2. 593 1990 Unknown [id number] 2.16.840.1.790035.3.579.2. 593 1990 Unknown [id number] 2.16.840.1.589935.3.579.2. 727 1990 Unknown [id number] 2.16.840.1.488379.3.579.2. 727 1990 Unknown [id number] 2.16.840.1.379118.3.579.2. 727 1990 Unknown [id number] 2.16.840.1.277485.3.579.2. 174 1990 Unknown [id number] 2.16.840.1.311245.3.579.2. 174 1990 Unknown [id number] 2.16.840.1.133364.3.579.2. 174 1990 Unknown [id number] 2.16.840.1.723688.3.579.2. 174 1990 Unknown [id number] 2.16.840.1.652264.3.579.2. 174 1990 Unknown [id number] 2.16.840.1.500606.3.579.2. 1259 1990 Unknown [id number] 2.16.840.1.208938.3.579.2. 1259 1990 Unknown [id number] 2.16.840.1.853575.3.579.2. 1259 1990 Unknown [id number] 2.16.840.1.812558.3.579.2. 1259 1990 Unknown [id number] 2.16.840.1.096362.3.579.2. 1259 1990 Unknown [id number] 2.16.840.1.208232.3.579.2. 1259 1990 Unknown [id number] 2.16.840.1.626918.3.579.2. 1259 1990 Unknown [id number] 2.16.840.1.003851.3.579.2. 175 1990 Unknown [id number] 2.16.840.1.851882.3.579.2. 175 1990 Unknown [id number] 2.16.840.1.725896.3.579.2. 175 1959 Unknown [id number] Social History Date Type Detail Facility Start: 04-28-2019 End: 11-03-2019 Tobacco smoking status NHIS Current every day smoker [place] End: 02-15-2020 History of tobacco use Cigarette Smoker [place] Start: 04-28-2019 End: 10-05-2023 Cigarettes smoked current (pack per day) - Reported ALEXANDRA PANIAGUA [facility] Start: 04-28-2019 Alcohol intake Current drinke r of alcohol (finding) [place], [place] Start: 1990 Sex Assigned At Not on file [place] Start: 06-13-2019 End: 10-05-2023 Alcohol intake Ex-drinker (finding) [facility] [place] Exposure to SARS-CoV -2 (event) Unable to assess [facility] [place] Start: 05-18-2019 End: 04-16-2021 History SDOH Alcohol Frequency 3 [facility] Start: 05-18-2019 End: 07-16-2020 History SDOH Alcohol Std Drinks 5 [facility] Start: 05-04-2021 End: 05-19-2022 Exposure to SARS-CoV-2 (event) Not sure [facility] Start: 11-20-2019 End: 07-26-2023 Tobacco use and exposure Never used [employer] Start: 06-09-2020 End: 07-26-2023 Tobacco smoking status NHIS Former smoker [facility] End: 02-15-2020 History of tobacco use Current smoker [facility] Start: 12-09-2019 [facility] Start: 04-16-2021 History SDOH Social Connections Get Together 4 [facility] Start: 04-16-2021 History SDOH Food Worry 1 [facility] Start: 09-04-2022 End: 10-05-2023 Sex Assigned At Female [facility] Start: 09-04-2022 History SDOH Alcohol Frequency 2 [employer] How often to you hav e a drink containing alcohol? Monthly or less [employer] Average Number of Drinks Not on file [employer] How often to you hav e a drink containing alcohol? Never [facility] Procedure Code Equipment Code Equipment Origin al Text Equipment Identifier Dates Use to check BG QID Dx O24.14 . [id number] Start: 06-09-2020 Use as instructe d to check BG QID Dx O24.14 . [id number] Start: 06-09-2020 End: 06-11-2020 use to test BLOO D SUGAR FOUR TIMES DAILY [id number] Start: 06-09-2020 Goals Date Patient Goal Desired Activity /State Functional Status Date Assessment Result Facility 05-13-2023 Functional Status N/A [facility] 05-11-2023 Functional Status N/A [facility] 06-29-2022 Functional Status N/A [facility] Clinical Notes 06-09-2020 to 05-13-2023 Note [...] Follow these instructions at home: Medicines Take yncg-pwm-icemslz and prescription medicines only as told by [...] provider. Document Revised: 04/30/2021 Document Reviewed: 04/30/2021 [employer] Patient Education 2022 [employer] Interactive Follow Up Care 05/13/2023 11:20:07 With:[employer] Address: [facility] [place] [address]- Business (1) When:05/16/2023 12:45:32 Comments:Dentistry follow-up [facility] 05-12-2023 Hospital Discharg e instructions Patient Education 05/11/2023 23:33:09 Dental Pain, Jska-yf-Uuor Dental Pain Dental pain is often a [...] Follow these instructions at home: Medicines Take anhc-kza-yflpyel and prescription medicines only as told by [...] damage to the area. Brushing your teeth Randall your teeth twice a day using a [...] only when you eat or drink. Take ieij-rng-mkedluz and prescription medicines only as told by your dentist. Watch your dental pain for any changes. Let your dentist know if symptoms get worse. This information is not intended to replace advice given to you by your health care provider. Make sure you discuss any questions you have with your health care provider. Document Revised: 11/26/2020 Document Reviewed: 11/26/2020 [employer] Patient Education 2022 [employer]. Follow Up Care 05/11/2023 21:26:40 With:Linda Sheppard DO Address: [facility] [address], [facility] C, [facility] [address] [place] [address]- When:05/14/2023 [facility] 05-11-2023 Evaluation + Plan note Extrac roxann from: Title:ED Note Author:Violet Walters PA-C ate:05/11/23 1. Pain, dental (K08.89: Oth er specified disorders of teeth and supporting structures) Ordered: amoxicillin-clavulanate, = 1 tab(s), Oral, q12hr, X 7 day(s), # 14 tab(s), Refills(s) 0, Pharmacy: [facility], 160, cm, 05/11/23 21:53:00 EST, Height/Length Dosing, 110, kg, 05/11/23 21:53:00 EST, Weight Dosing chlorhexidine topical, 0.018 gm, 15 mL, Oral, BID, 480 mL, Refill(s) 0, (swish and spit; do not swallow), [facility], 160, cm, 05/11/23 21:53:00 EST, Height/Length Dosing, 110, kg, 05/11/23 21:53:00 EST, Weight Dosing 2. Infected dental caries (K02.9: Dental caries, unspecified) Ordered: amoxicillin-clavulanate, = 1 tab(s), Oral, q12hr, X 7 day(s), # 14 tab(s), Refills(s) 0, Pharmacy: [facility], 160, cm, 05/11/23 21:53:00 EST, Height/Length Dosing, 110, kg, 05/11/23 21:53:00 EST, Weight Dosing chlorhexidine topical, 0.018 gm, 15 mL, Oral, BID, 480 mL, Refill(s) 0, (swish and spit; do not swallow), [facility], 160, cm, 05/11/23 21:53:00 EST, Height/Length Dosing, 110, kg, 05/11/23 21:53:00 EST, Weight Dosing 3. First trimester (Z34.91: Encounter for supervision of normal , unspecified, first trimester) Periapical abscess without sinus (K04.7: Periapical abscess without sinus) Orders: ketorolac, 30 mg = 1 mL, Injection, IntraMuscular, Once, Stop date 05/11/23 23:31:00 EST, STAT, Start date 05/11/23 23:31:00 EST, 05/11/23 23:31:00 EST [facility]03-05-2024 Hospital Discharge instructions* Discharge Instructions* Chet Berumen DO - 05/10/2023 11:50 AM EST Use amoxicillin as prescribed. Use Tylenol as needed for pain. Follow-up with dentist as soon as possible. * Attachments The following attachments cannot be sent through Care Everywhere. * Tooth Decay (Pakistani) * Tooth and Gum Pain (Pakistani) [facility] History of Present illness Narrative* Angelito [...] Supplements: Reviewed Current Outpatient Medications Ordered in [facility] Medication Sig Dispense Refill baclofen [...] mg by mouth daily . No current [facility]-ordered facility-administered medications on file. Lab [...] - 6-7 PM- crock pot meals- goulash; Filipino chicken; spicy rice with chicken and beans; [...] calorie goals/day. Estimated Nutritional Needs: Calorie Needs: 3671-5736 kcals/day (MSJ x 1.3AF -500-1000 to promote gradual weight loss) Patient/Family Education: Learner: family and patient Readiness: action - ready to set action plan and implement goals Barriers to Learning: none Method: explanation and handout Response: verbalizes understanding Expected Adherence: good Education Materials Provided: Healthy Meal Planning handout ([facility]), Goal Sheet, 1,620-Zzsbssq7-Fdr Menus (NCM), 1,800-Calorie 5-Day Menus (NCM), Weight Loss Tips ([facility]) Monitoring/Evaluation: Lab results, weight, food recall, meal planning, goal achievement, physical activity, medication management. This documentation has been sent to the referring healthcare provider. Angelito Harvey RDN, ZAHRA Personal Office documented in this [id number] History of Present illness Narrative* Narcis Dwait [place], MD - 05/14/2021 10:43 AM EST [...] C hepatitis virus. Patient was referred to health psychologist and the recommendation was made for a [...] improve, for Follow Up. documented in this [id number] History of Present illness Narrative* Farhat Vang [...] current medications that are prescribed by her it support specialist. She has 4 children at [...] Not difficult at all documented in this [id number] History of Present illness Narrative* Holland Ann [...] Surgeon: Roslyn Stevenson MD; Location: [facility]; Service: OBGYN SECTION, LOW TRANSVERSE 3 Social [...] Friends and Family: Not on file Attends [employer]: Not on file Active Member of [...] Report 12/29/2020 Final Value:Gynecologic Cytology Report Case: [id number] Authorizing Provider: Germania Valentino, Collected: 12/29/2020 11:09 AM REMEDIAL READING TEACHER Ordering Location: [facility] FULLING MILL OPERATOR - An Received: 12/30/2020 12:03 PM [facility] First Screen: Violet Craig Rescreen: Talya Abel [...] from every slide are reviewed by a coding quality coordinator. Specimen processing and Primary Screening performed at: [facility] - [address] [place] [address] HPV Results 12/29/2020 Final Value:This result contains [...] physician. Holland Ann MD documented in this [id number] History of Present illness Narrative* Jeimy Tan LPN - 01/15/2021 11:17 AM EST This nurse acted as a brick washer for a rectal exam by Dr. Ann for Tia. Tia verbalized consent to be examined, appeared comfortable and tolerated the exam well. documented in this [id number] History of Present illness Narrative* Neris Ulloa, [...] oatmeal packet. Snack celery + PB or Colombian yogurt or green peppers. Lunch - will be light if full from snack and may have an early dinner. Dinner - pork chops, steamed vegetables. Snack - Colombian yogurt or vegetables or watermelon. Beverages - [...] prescription for Current Outpatient Medications Ordered in [facility] Medication Sig Dispense Refill blood [...] BLOOD SUGAR FOUR TIMES DAILY No current [facility]-ordered facility-administered medications on file. SMBG [...] the referring healthcare provider. documented in this [id number] Instructions* Patient Instructions* Zelda Bautista CNP - [...] to renew/prescribe testing supplies. documented in this [id number] History of Present illness Narrative* Zelda Bautista [...] visit with us. The patient did bring [employer] sugar meter with her for download today however there is not many readings on it. She states she started a new job at [employer] and does noise get breaks to check [...] 4. Patient to cont. To follow with rotary cutter feeder 5. Patient will require 2 hour 75 gram OGTT 8-12 weeks after delivery. 6. Follow-up in 2 weeks. Risks and potential complications of diabetes were reviewed with the patient. Electronically signed by Zelda MARIN 07/09/2110:03 AM documented in this [id number] History of Present illness Narrative* Lelo Gallegos [...] month during . While awaiting appointment with rotary cutter feeder, patient provided with details of GDM diet, [...] 1 hour post prandial. 4. Referral to rotary cutter feeder 5. Patient will require 2 hour 75 gram OGTT 8-12 weeks after delivery. 6. Follow-up in 2 weeks. Risks and potential complications of diabetes were reviewed with the patient. documented in this encounterAlabamaHealthEvaluation + [facility] note No data available for this section [facility] Diagnosis Diet controlled gestational diabetes mellitus (GDM) in second trimester [facility] Diagnosis Acute frontal sinusitis, recurrence not specified- Primary documented in this encounter [facility] Phone: evaluation note* Diagnosis Diet controlled gestational diabetes mellitus (GDM) in third trimester- Primary [facility]* Diagnosis Diet controlled gestational diabetes mellitus (GDM) in third trimester [facility]* Diagnosis Viral URI- Primary Acute upper respiratory infections of unspecified site documented in this encounter [facility] Phone: evaluation note* Diagnosis Strain of rhomboid muscle, initial encounter Chest wall muscle strain, initial encounter documented in this encounter [facility] Phone: evaluation note* Diagnosis Viral syndrome- Primary Unspecified viral infection, in conditions classified elsewhere and of unspecified site documented in this encounter [facility] Phone: evaluation note* Diagnosis Hemorrhoids, unspecified hemorrhoid type [facility] Diagnosis COVID-19- Primary Omphalitis in adult Unspecified local infection of skin and subcutaneous tissue documented in this encounter [facility] Phone: evaluation note* Diagnosis Encounter for general adult medical examination with abnormal findings- Primary Anxiety and depression History of opioid abuse (HCC) Morbid obesity with body mass index (BMI) of 40.0 or higher (HCC) [facility] Diagnosis Anxiety and depression- Primary At risk for obstructive sleep apnea Chronic bilateral low back pain without sciatica Hepatitis C antibody positive in blood Body mass index 40.0-44.9, adult (HCC) Body Mass Index 40.0-44.9, adult History of opioid abuse (HCC) [facility] Diagnosis Morbid obesity with body mass index (BMI) of 40.0 or higher (HCC) [facility]* Diagnosis Acute pharyngitis, unspecified etiology- Primary documented in this encounter [facility] Phone: [email or web address] note* Diagnosis Acute bronchitis, unspecified organism- Primary documented in this encounter [facility] Phone: evaluation note* Diagnosis Masseter muscle spasm- Primary Spasm of muscle Other acute postprocedural pain documented in this encounter [facility] Phone: evaluation note* Diagnosis Dry socket- Primary Alveolitis of jaw documented in this encounter [facility] Phone: evaluation note* Diagnosis Sprain of right ankle, unspecified ligament, initial encounter- Primary documented in this encounter [facility]* Diagnosis Toothache- Primary Unspecified disorder of the teeth and supporting structures Dental decay Unspecified dental caries [facility]* Diagnosis 26 weeks gestation of - Primary state, incidental documented [facility]* Instructions* Anuj Quinn MD - 06/24/2020 Although many fhrq-mru-awkjmkd cough cold flu sinus medications are safe in , I would contact her FULLING MILL OPERATOR office in [facility] to verify what your FULLING MILL OPERATOR group feels a safe in . Tylenol [...] be sent through Care Everywhere. * Sinusitis (Pakistani) [facility] Discharge instructions* Attachments The following attachments cannot be sent through Care Everywhere. * URI (Upper Respiratory Infection) (Pakistani) documented [facility] Phone: Hospital Discharge instructions* Attachments The following attachments cannot be sent through Care Everywhere. * Muscle Strain (Pakistani) [facility] Phone: Hospital Discharge instructions* Attachments The following attachments cannot be sent through Care Everywhere. * Viral Infections (Pakistani) documented [facility] Phone: Hospital Discharge instructions* Attachments The following attachments cannot be sent through Care Everywhere. * Coronavirus Disease (COVID-19): General Info (Pakistani) * Coronavirus Disease (COVID-19): Isolation (Pakistani) * Piercing: Infection (Pakistani) [facility] Phone: Hospital Discharge instructions* Instructions* Clark Moser MD - 07/22/2021 Use Tylenol or Motrin for pain. Take amoxicillin twice a day. Amoxicillin treats strep throat, ear infections, bronchitis and pneumonia. Call primary care doctor for close follow-up. * Attachments The following attachments cannot be sent through Care Everywhere. * Sore Throat (Pakistani) [facility] Phone: spital Discharge instructions* Attachments The following attachments cannot be sent through Care Everywhere. * Bronchitis (Pakistani) documented in [facility] Phone: spital Discharge instructions* Attachments The following attachments cannot be sent through Care Everywhere. * Cramp: Muscle (Pakistani) * Pain Post-Surgery: Acute (Pakistani) documented in this encounterSA[facility]ENTER[facility] Phone: [employer] Discharge instructions* Attachments The following attachments cannot be sent through Care Everywhere. * Morven Tooth Extraction: Post-op (Pakistani) documented in this encounterSA[facility] Phone: [employer] Discharge instructions No data available for this section [facility] Discharge instructions* Attachments The following attachments cannot be sent through Care Everywhere. * Ankle Sprain (Pakistani) [facility]* Attachments The following attachments cannot be sent through Care Everywhere. * : Weeks 26 to 30 (Pakistani) * : When to Call (After 20 Weeks): General Info (Pakistani) * : Twins: General Info (Pakistani) [facility] No data available for this section [facility] for referral (narrative)* Consultation (Routine) Status Reason Specialty Diagnoses / Procedures Referred By Contact Referred To Contact Authorized Nutrition Diagnoses Diet controlled gestational diabetes mellitus (GDM) in second trimester Lelo Gallegos MD [address] [place] [address] Nutrition Services [address] [place] [phone] [facility] for visit Narrative* Consultation (Routine) - Pending Review Specialty Diagnoses / Procedures Referred By Contac t Referred To Contact Gastroenterology Diagnoses Hemorrhoids, unspecified hemorrhoid type Germania Galaviz, MARK [address] [place] [address] Holland Ann MD [address] [place] [address] Referral ID Status Reason Start Date Expiration Date V isits Requested Visits Authorized [id number] Pending Review 12/29/2020 01/14/2022 1 1 [facility] Assessments Diagnosis Accidental overdose of heroin, initial [...] pneumonia- Primary Pneumonia, organism unspecified Diagnosis Poison araeblla Contact dermatitis and other eczema due to plants (except food) Diagnosis Diet controlled gestational diabetes mellitus (GDM) in second trimester Advance Directives No Advanced Directives Records FoundDocuments on File Type Date Recorded 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 Expl anation Advance Directives and Living Will Power of Mine Boss Documents on File Type Date Recorded 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 Expl anation Advance Directives and Living Will 06/14/2019 7:25 AM does not have 0 Latest Code Status on File Code Status Date Activated Date Inactivated Comments Full Code 06/15/2019 9:29 AM 06/17/2019 4:38 PM Full Code - Unverified 06/14/2019 8:35 AM 06/15/2019 9:29 AM Documents on File Type Date Recorded 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 Expl anation Advance Directives and Living Will 06/14/2019 7:25 AM does not have 3/13/2 0 Latest Code Status on File Code Status Date Activated Date Inactivated Comments Full Code 06/15/2019 9:29 AM 06/17/2019 4:38 PM Full Code - Unverified 06/14/2019 8:35 AM 06/15/2019 9:29 AM Documents on File Type Date Recorded 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 Expl anation Advance Directives and Living Will 06/20/2019 1:10 PM does not have 3/13/2 0 Documents on File Type Date Recorded 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 Expl anation ACP-Advance Directive ACP-Power of Mine Boss Documents on File Type Date Recorded 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 Expl anation Advance Directives and Living Will 06/20/2019 1:10 PM does not have 3/13/2 0 Documents on File Type Date Recorded 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 Expl anation Advance Directives and Living Will 08/28/2020 5:58 AM does not have 3/13/2 0 Latest Code Status on File Code Status Date Activated Date Inactivated Comments Full Code 08/28/2020 11:15 AM 08/30/2020 11:53 AM Full Code 08/28/2020 5:31 AM 08/28/2020 11:07 AM Full Code 06/15/2019 9:29 AM 06/17/2019 4:38 PM Documents on File Type Date Recorded 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 Expl anation Advance Directives and Living Will 08/28/2020 5:58 AM does not have 3/13/2 0 Latest Code Status on File Code Status Date Activated Date Inactivated Comments Full Code 08/28/2020 11:15 AM 08/30/2020 11:53 AM Full Code 08/28/2020 5:31 AM 08/28/2020 11:07 AM Full Code 06/15/2019 9:29 AM 06/17/2019 4:38 PM Documents on File Type Date Recorded 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 Expl anation Advance Directives and Livin g Will 05/15/2021 12:00 AM Latest Code Status on File Code Status Date Activated Date Inactivated Comments Full Code 10/05/2023 9:02 PM Hospital Course * Savita Stiles PA-C - 06/17/2019 10:12 AM EDT [facility] Tia Levin Account: [id number] Admitted: 06/14/2019 Discharge Date/Time: 06/17/19 / 10:12 [...] amphetamine and heroine use who presented to [facility] 06/14/19 with complaints of abdominal pain and nausea. [facility] AST 1116 ALT 665 Alk phos 255 T bili 6.5 Lipase 8. CTAP revealed pericholecystic fluid vs GB wall thickening, no gallstones or hepatic pathology noted. Patient transferred to [facility] 06/14/2019 for further treatment and evaluation. GI [...] She understood this. [place] I have reviewed chart for all vitals, diagnostic data, and distributed energy systems consultant notes. I discussed patient's case with Dr. Gregorio, Dr. Hay (GI) and RN. Discharge Medications Medication List ASK your doctor about these medications naltrexone microspheres Commonly known as: VivitroL Inject 380 (three hundred eighty) mg into the shoulder, thigh, or buttocks every 30 (thirty) days . Physician(s) Family: Physician No, Phone: None, Address: [facility] Follow Up: Javier Hay MD [address] [facility] Ag Kendall [address] [place] [id number] Follow up Repeat weekly CBC, CMP and PT/INR for the next 3-4 weeks then follow up out patient with Dr. Hay. Laboratory Follow Up by [facility]: Weekly labs for CBC, CMP, PT/INR Additional Information: Patient seen and examined day of discharge. For more information regarding patient's care, including complete radiology reports, please contact [facility] at Patient instructions, including activity, were given to the patient/family at discharge. Please seethe After Visit Summary in the medical record for details. Completed by: Savita Stiles on 06/17/19, 10:12 AM Associated attestation - Thad Auguste MD - 06/17/2019 11:24 AM EDT Patient seen and examined independently. Personally reviewed labs, imaging. Discussed case with Savtia Stiles PA-C. Agree with plan as below. Tia Levin is a 29 y.o. female with a history of amphetamine and heroine use who presented to [facility] 06/14/19 with complaints of abdominal pain and nausea. H AST 1116 ALT 665 Alk phos 255 T bili 6.5 Lipase 8. CTAP revealed pericholecystic fluid vs GB wall thickening, no gallstones or hepatic pathology noted. Patient transferred to [facility] 06/14/2019 for further treatment and evaluation. LFTs [...] 1:16 PM EDT RESOURCES FOR PRIMARY CARE [facility] Primary Care Closed Opens tomorrow [address], [place] [address] [facility] [place] [address] [place] [address] DIRECTIONS WEBSITE [facility] Walk-In Care Closed Opens tomorrow 11 AM [address] [place] [address] documented in this encounter* Instructions* Adia Dillon, [...] Opioid Use Disorder: Medication-Assisted Treatment: General Info (Pakistani) documented in this encounter* Attachments The following attachments cannot be sent through Care Everywhere. * Bacterial Vaginosis (Pakistani) * Trichomoniasis (Pakistani) documented in this encounter* Attachments The following attachments cannot be sent through Care Everywhere. * Dental Surgery: Generic: Post-op (Pakistani) documented in this encounter* Attachments The following attachments cannot be sent through Care Everywhere. * Bronchitis (Pakistani) * Pneumonia (Pakistani) documented in this encounter* Attachments The following attachments cannot be sent through Care Everywhere. * Poison Arabella - [place] - and [place] (Pakistani) documented in this encounter History of Present Illness * Javier Hay MD - 06/17/2019 9:59 AM EDT GASTROENTEROLOGY DAILY PROGRESS NOTE 1 Patient Name: Tia Levin MR #: [id number] Assessment/Plan: Elevated LFTs Assessment & Plan 29yo F with PMHx IVDU and hepatitis C who presents from [facility] with elevated LFTs and imaging c/f possible acute cholecystitis. GI consulted for further evaluation. - LFTs: AP 255, AST/ALT 665/1116, TB 6.5 (normal 02/2019) - CT w IVC ([facility]): moderate GBW thickening w pericholecystic [...] Inpatient Progress Note 06/17/2019 Tia Levin 1990 [id number] Assessment/Plan: Tia Levin is a 29 y.o. female with a history of amphetamine and heroine use who presented to [facility] 06/14/19 with complaints of abdominal pain and nausea. [facility] AST 1116 ALT 665 Alk phos 255 T bili 6.5 Lipase 8. CTAP revealed pericholecystic fluid vs GB wall thickening, no gallstones or hepatic pathology noted. Patient transferred to [facility] 06/14/2019 for further treatment and evaluation. 1. [...] labs, diagnostics, vitals including pulse ox, and distributed energy systems consultant/other provider recommendations. No acute issues overnight [...] 2 Patient Name: Tia Levin MR #: [id number] Assessment/Plan: Elevated LFTs Assessment & Plan 29yo F with PMHx IVDU and hepatitis C who presents from [facility] with elevated LFTs and imaging [...] Auguste MD - 06/16/2019 9:38 AM EDT [facility] Inpatient Progress Note 06/16/2019 Tia Levin 1990 [id number] Assessment/Plan: Tia Levin is a 29 y.o. female with a history of amphetamine and heroine use who presented to [facility] 06/14/19 with complaints of abdominal pain and nausea. [facility] AST 1116 ALT 665 Alk phos 255 T bili 6.5 Lipase 8. CTAP revealed pericholecystic fluid vs GB wall thickening, no gallstones or hepatic pathology noted. Patient transferred to [facility] 06/14/2019 for further treatment and evaluation. 1. Acute Liver Injury: [facility] AST 1116 ALT 665 Alk [...] recent labs, diagnostics, vitals including pulseox, and distributed energy systems consultant/other provider recommendations. No acute issues overnight [...] 2 Patient Name: Tia Levin MR #: [id number] Assessment/Plan: Elevated LFTs Assessment & Plan 29yo F with PMHx IVDU and hepatitis C who presents from [facility] with elevated LFTs and imaging [...] Pruitt MD - 06/15/2019 10:43 AM EDT [facility] Tia Levin 1990 [id number] Assessment/Plan: Tia Levin is a 29 y.o. female with a history of amphetamine and heroine use who presented to [facility] 06/14/19 with complaints of abdominal pain and nausea. [facility] AST 1116 ALT 665 Alk phos 255 T bili 6.5 Lipase 8. CTAP revealed pericholecystic fluid vs GB wall thickening, no gallstones or hepatic pathology noted. Patient transferred to [facility] 06/14/2019 for further treatment and evaluation. 1. [...] not have a PCP and refused a machine adjuster leader case trim consult for assistance. Verified insurance and Rx. [...] 10:48 AM EDT Patient on [facility] for follow-up. After provider review, I called and spoke with patient and changed her appointment to a phone visit, same date/time. In addition, as per provider request, I spoke with patient about going to any [facility] to have her lab taken [...] daily (lemon water) Occasional iced coffee at [employer]. Was drinking a lot of Mountain Dew and Energy drinks prior to but stopped. Meals Away From Home - most days, fast food Past Medical History: Past Medical History: Diagnosis Date Anxiety Depression Infectious viral hepatitis hep c PTSD (Post-Traumatic Stress Disorder) History From: History obtained from patient and chart review. Current/Pertinent Medications: prescription for Current Outpatient Medications Ordered in [facility] Medication Sig Dispense Refill amoxicillin [...] daily . 90 tablet 3 No current [facility]-ordered facility-administered medications on file. SMBG [...] (BMI) of 40.0 or higher ([facility]) Farhat Vang MD [address] Referral ID Status Reason Start Date Expiration Date Visits Requested Visits Authorized [id number] Authorized Specialty Services Required/Pat ient's Best Interest 04/16/2021 04/16/2022 1 1 Specialty Diagnoses / Procedures Referred By Contac t Referred To Contact Neurosurgery Diagnoses Chronic bilateral low back pain without sciatica aFrhat Vang MD [address] [address] Carina Kline MD [facility] [place] [address] Referral ID Status Reason Start Date Expiration Date Visits Requested Visits Authorized [id number] Authorized Specialty Services Required/Pat ient's Best Interest 05/14/2021 05/14/2022 1 1 Specialty Diagnoses / Procedures Referred By Contac t Referred To Contact Rehabilitation Diagnoses Chronic bilateral low back pain without sciatica Farhat Vang MD [address] [address] Referral ID Status Reason Start Date Expiration Date Visits Requested Visits Authorized [id number] Authorized Specialty Services Required/Pat ient's Best Interest 05/14/2021 05/14/2022 1 1 Specialty Diagnoses / Procedures Referred By Contac t Referred To Contact Diagnoses At risk for obstructive sleep apnea Farhat Vang MD [address] [address] Gabriel Jacinto MD [address] [place], [place] [address] [place] [address] Referral ID Status Reason Start Date Expiration Date Visits Requested Visits Authorized [id number] Authorized Specialty Services Required/Pat ient's Best Interest 05/14/2021 05/14/2022 1 1 Additional Source Comments Reason for Visit (unrecogniz ed section and content) Reason Comments Drug Overdose Pt was brought in by [facility] for heroin OD. Prior to arrival [facility] [...] in second trimester Lelo Gallegos MD [address] [place] [address] Nutrition Services [address] [place] [address] Reason Comments Gestational Diabetes Status Reason Specialty Diagnoses / Procedures Referred By Contact Referred To Contact Closed Endocrinology Diagnoses Diet controlled gestational diabetes mellitus (GDM) in second trimester Roslyn Stevenson MD [address] [place] [id number] Lelo Gallegos MD [address] [place] [address] Reason Comments Pharyngitis sore throat and head [...] (BMI) of 40.0 or higher ([facility]) Farhat Vang MD [address] [facility] [address] [place] [address] Nutrition Services [address] [place] [address] Referral ID Status Reason Start Date Expiration Date Visits Requested Visits Authorized [id number] Authorized Specialty Services Required/Pat ient's Best Interest [...] and Physical Note 06/14/19 Tia Levin 1990 [id number] Assessment/Plan: Tia Levin is a 29 y.o. female with a history of amphetamine and heroine use who presented to [facility] 06/14/19 with complaints of abdominal pain and nausea. OL AST 1116 ALT 665 Alk phos 255 T bili 6.5 Lipase 8. CTAP revealed pericholecystic fluid vs GB wall thickening, no gallstones or hepatic pathology noted. Patient transferred to [facility] 06/14/2019 for further treatment and evaluation. 1. Elevated LFTs: [facility] AST 1116 ALT 665 Alk [...] amphetamine and heroine use who presented to [facility] 06/14/19 with complaints of abdominal pain and nausea. [facility] AST 1116 ALT 665 Alk phos 255 T bili 6.5 Lipase 8. CTAP revealed pericholecystic fluid vs GB wall thickening, no gallstones or hepatic pathology noted. Patient transferred to [facility] 06/14/2019 for further treatment and evaluation. Patient [...] labs, diagnostics, vitals including pulse ox, and distributed energy systems consultant/other provider recommendations. Discussed with collaborating physician [...] file Gets together: Not on file Attends latter day service: Not on file Active member of [...] reviewed, including documentation from previous hospitalizations and distributed energy systems consultant recommendations as summarized below. Briefly, patient [...] Name: Tia Levin Admit Date: MR #: [id number] : 1990 Senior addendum 29 y/o F [...] Hepatitis C, and hx of presents to [facility] with jaundice and abdominal pain. -RUQ U/S [...] Fleming MD General Surgery, PGY 2 Pager# [phone] 06/16/2019, 10:43 AM After 5 PM and on Weekends, please page [phone] (Surgery Pharmacy Benefit Manager stone circular sawyer) History of Present Illness: Patient presented for [...] file Gets together: Not on file Attends latter day service: Not on file Active member of [...] patient. I discussed the case with the resident/ACTIVITY THERAPY SPECIALIST and agree with the findings and plan as documented in his/her note and/or any note I supplied. Associated Order(s): IP CONSULT TO GASTROENTEROLOGY GASTROENTEROLOGY CONSULT NOTE 4 Patient Name: Tia Levin Admit Date: MR #: [id number] : 1990 Physicians: Physician No (Family); Brie Moreno MD (Referring) Consult Ordered By: Franny Sims PA-C Assessment and Plan: Other Elevated LFTs Assessment & Plan 29yo F with PMHx IVDU and hepatitis C who presents from [facility] with elevated LFTs and imaging [...] IVDU and hepatitis C who presents from [facility] with elevated LFTs and imaging [...] file Gets together: Not on file Attends latter day service: Not on file Active member of [...] reviewed, including documentation from previous hospitalizations and distributed energy systems consultant recommendations as summarized below. Briefly, patient [...] secti on and content) ED PROVIDER NOTE [facility] EMERGENCY DEPARTMENT NAME: Tia Levin AGE: 29 y.o. : 1990 VISIT DATE: 08/13/2019 CSN: [id number] PCP: Physician No Chief Complaint Patient presents with Drug Overdose This is a 29-year-old female brought to the ER via EMS for evaluation. Time my exam patient is alert and oriented. She states [place] was [place] parking lot bent over in her car [...] file Gets together: Not on file Attends latter day service: Not on file Active member of [...] nursing note reviewed. Exam conducted with a brick washer present (Nurses at the bedside). Constitutional: General: [...] people with drug addiction. [address] [facility] [address] Contact information for after-discharge care Follow-up information has not been specified. Adai Dillon CNP 08/13/191948 Pt brought in by [facility], states she was found by [...] section and content) DATE CREATED AUTHOR 08/21/2019 [facility] DATE CREATED AUTHOR AUTHOR'S ORGANIZ ATION 02/15/2021 [facility] DATE CREATED AUTHOR AUTHOR'S ORGANIZ ATION 05/18/2021 [facility] DATE CREATED AUTHOR AUTHOR'S ORGANIZ ATION 07/02/2021 [facility] DATE CREATED AUTHOR AUTHOR'S ORGANIZ ATION 07/09/2021 [facility] DATE CREATED AUTHOR AUTHOR'S ORGANIZ ATION 07/05/2022 [facility] DATE CREATED AUTHOR AUTHOR'S ORGANIZ ATION 05/14/2023 [facility] DATE CREATED AUTHOR AUTHOR'S ORGANIZ ATION 10/07/2023 [facility] Walt alejo DATE CREATED AUTHOR AUTHOR'S ORGANIZ ATION 11/11/2023 [facility] DATE CREATED AUTHOR AUTHOR'S ORGANIZ ATION 11/19/2023 [facility] Ordered Prescriptions (unrec ognized section [...] (Given - Provid er: Susan R Coey, DESIGN ENGINEERING MANAGER) predniSONE (DELTASONE) tablet 60 mg (COMPLETED) 60 [...]
Care Teams (unrecognized sec tion and content) Childcare Teacher Relationship Specialty Start Date End Date No, Physician [facility] PCP - General 12/29/20 Germania Galaviz, MARK [address] [place] [address] Nurse Practitioner Obstetrics/Gynecology 11/01/19 Childcare Teacher Relationship Specialty Start Date End Date No, Physician [facility] PCP - General 12/29/20 Germania Galaviz, REMEDIAL READING TEACHER [address] [place] [address] Nurse Practitioner Obstetrics/Gynecology 11/01/19 Childcare Teacher Relationship Specialty Start Date End Date Farhat Vang MD [address] [address] PCP - General Family Medicine 04/16/21 Germania Galaviz, REMEDIAL READING TEACHER [address] [facility] [address] [place] [address] Nurse Practitioner Obstetrics/Gynecology 11/01/19 Radha Pantoja MD [address] [facility] [address] [place] [address] Sales Activity Manager Obstetrics/Gynecology 02/02/21 Yvonne Santos MD [address] [facility] [address] [place] [address] Sales Activity Manager Obstetrics/Gynecology 02/02/21 Regla Dias CN [address] [facility] [address] [place] [address] Cheese Supervisor Obstetrics/Gynecology 02/02/21 Childcare Teacher Relationship Specialty Start Date End Date Farhat Vang MD [address] [facility] [address] [place] [address] PCP - General Family Medicine 04/16/21 Germania Galaviz, REMEDIAL READING TEACHER [address] [facility] [address] [place] [address] Nurse Practitioner Obstetrics/Gynecology 11/01/19 Radha Pantoja MD [address] [place] [address] Sales Activity Manager Obstetrics/Gynecology 02/02/21 Yvonne Santos MD [address] [facility] [place] [address] Sales Activity Manager Obstetrics/Gynecology 02/02/21 Regla Dias, [facility] [address] [facility] [place] [address] Cheese Supervisor Obstetrics/Gynecology 02/02/21 Childcare Teacher Relationship Specialty Start Date End Date Farhat Vang MD [address] [facility] [address] [place] [address] PCP - General Family Medicine 04/16/21 Germania Galaviz, [facility] [address] [place] [address] Nurse Practitioner Obstetrics/Gynecology 11/01/19 Radha Pantoja MD [address] [facility] [place] [address] Sales Activity Manager Obstetrics/Gynecology 02/02/21 Yvonne Santos MD [address] [facility] [place] [address] Sales Activity Manager Obstetrics/Gynecology 02/02/21 Regla Dias, [facility] [address] [facility] [place] [address] Cheese Supervisor Obstetrics/Gynecology 02/02/21 Childcare Teacher Relationship Specialty Start Date End Date Linda Sheppard, [address] [facility] [address] PCP - General Family Medicine 09/04/22 Childcare Teacher Relationship Specialty Start Date End Date Linda Sheppard, DO [address] [facility] [place] [address] PCP - General Family Medicine 09/04/22 Childcare Teacher Relationship Specialty Start Date End Date Linda Sheppard, DO [address] [facility] [address] PCP - General Family Medicine [...] BE BASED ON THE PRIMARY CLINICAL RECORDS. [facility] [address] [employer] [facility]. provides no warranty or guarantee of the accuracy or completeness of information in this document.
[2023-11-25] MEDS: BETAMETHASONE ACE/BETAMETHASONE SOD PHOS 30 MG/5 ML 12 MG IM (11:13)
[2023-11-25 11:33] VITALS: BP 118/73; PULSE 108
== END 2023-11-25 12:35 | disposition home or self-care (01) ==
LOC: FBCO 07:43 → FBC 10:51
PROVIDERS: Visit Provider Obstetrics & Gynecology
DX: O30.033 Twin pregnancy, monochorionic/diamniotic, third trimester (principal); Z3A.34 34 weeks gestation of pregnancy
CPT/HCPCS: 59025; J0702

== ENCOUNTER 2023-11-26 10:58 | Outpatient (OUT) | payer BC, SELFPAY ==
--- OUTSIDE RECORDS SUMMARY | 2023-11-26 11:04 | XMS_ITS | CCD ---
Author Organization [facility] ion Partnership [facility] Care Team Providers Care [place] C[place] Name Role Phone Unavailable Primary Care Provider Unavailabl e No, Physician Primary Care Provider Unavailabl e HODA MADERA Unavailable Unavailable Primary Care Provider Unavailabl e No, Physician Primary Care Provider Unavailabl Germania Becerra Unavailable Roslyn Stevenson Unavailable [phone] Radha Pantoja Unavailable Yvonne Santos Unavailable [phone] Larissa, Regla Corina Unavailable [phone] No, Physician Primary Care Provider UnavailGermania Rodriguez CNP Unavailable Roslyn Stevenson MD Unavailable Radha Pantoja MD Unavailable Yvonne Santos MD Unavailable Larissa CNM, Regla Corina Unavailable Unavailable Primary Care Provider UnavailGermania Rodriguez CNP Unavailable Roslyn Stevenson MD Unavailable Radha Pantoja MD Unavailable Yvonne Santos MD Unavailable Larissa CNM, Regla Corina Unavailable Germania Galaviz CNP Unavailable [phone] No, Physician Primary Care Provider Unavailabl e [...] Care Provider UnavailLinda Marie Primary Care Physician [phone] [place] ., DR GRANADOS Consulting Unavailable ELIANA [...] Unavailable Linda Sheppard DO Primary Care Provider [phone] Jonathan Martinez Attending Unavailable Zac Fields Attending [...] Primary Care Unavailable NICHOLAS ROGER Attending Unavailable LINDA SHEPPARD Primary Care Unavailable [...] day(s), # 14 tab(s), Refills(s) 0, Pharmacy: [facility], 160, cm, 05/11/23 21:53:00 EST, Height/Length [...] topical ointment (1 source) Start: 023 End: 07-11-2 023 bacitracin 500 UNIT/GM ointment Apply topically [...] oral solution (2 sources) alpha-Adrenergic Agonist, Uncompetitive N-rnhbgx-G-aspartate Receptor Antagonist, Sigma-1 Agonist Start: End: take 5 mL by mouth four times daily as needed for cough brompheniramine-pse udoephedrine-DM (BROMFED DM) 2-30-10 MG/5ML syrup Take 5 mLs by mouth 4 times daily as needed for Congestion or Cough 240 mL 1 10/12/2021 11/11/2021 Active Start: 11-07-2020 End: 11-12-2020 take 5 mL by mouth three times daily as needed for cough nhabdqubwsjuqvn-qvvzkrmpapfeusz-YX 2-30- 10 MG/5ML syrup Take 5 mLs [...] 0, (swish and spit; do not swallow), [facility] #[facility], 160, cm, 05/11/23 21:53:00 EST, [...] Active Dextromethorphan / guaiFENesin (2 sources) Uncompetitive N-fwmeof-Q-asparta te Receptor Antagonist, Sigma-1 Agonist End: 06-24-2020 [...] day(s), # 15 tab(s), Refills(s) 0, Pharmacy: [facility], 160, cm, 05/13/23 11:33:00 EST, Height/Length [...] for Pain. 0 05/10/2023 Discontinued (LIST CLEANUP) [id number] 200 actuat albuterol 0.09 mg/actuat metered dose [...] Oral, Every 4 hours PRN, indigestion, Starting [facility] 06/14/19 at 0831 azithromycin 250 mg [...] Oral, Daily PRN, constipation, For constipation., Starting [facility] 06/14/19 at 0831 naloxone (NARCAN) injection [...] overdose of heroin, initial encounter ([facility])] Episodic Substance-related disorders (1 source) Opioid abuse, [...] l admission (14 sources) Admission statuses; Translations: [senior care (current) use of opiate analgesic] Onset: [...] Coag (Bld) [Time] 29.8 s Normal 23.9-33.8 [facility] Comment on above: Result Comment: IV Heparin Therapy Range: 62.0-94.0 Performed By: #### P T, PTT, BMP, CDP, TROPI #### [facility] [address] [place] [address] [employer]: Guero Sandoval MD Basic Metabolic Profon 10-04 Anion gap [Moles/Vol] 13 mmol/L Normal 11-21 [facility] Comment on above: Performed By: #### P T, PTT, BMP, CDP, TROPI #### [facility] [address] [place] [address] [employer]: Guero Sandoval MD BUN/CRE Ratio Result cannot be calculated, Creatinine below linear range. Normal 11-24 [facility] Comment on above: Performed By: #### P T, PTT, BMP, CDP, TROPI #### [facility] [address] [place] [address] [employer]: Guero Sandoval MD Calcium [Mass/Vol] 8.7 mg/dL Normal 8.6-10.4 [facility] Comment on above: Performed By: #### P T, PTT, BMP, CDP, TROPI #### [facility] [address] [place], [place] [phone] [employer]: Guero Sandoval MD Chloride [Moles/Vol] 105 mmol/L Normal 98-107 [facility] Comment on above: Performed By: #### P T, PTT, BMP, CDP, TROPI #### [facility] [address] [place], [place] [phone] [employer]: Guero Sandoval MD CO2 [Moles/Vol] 18 mmol/L Low 20-31 [facility] Comment on above: Performed By: #### P T, PTT, BMP, CDP, TROPI #### [facility] [address] [place], [place] [phone] [employer]: Guero Sandoval MD Creatinine [Mass/Vol] mg/dL Low 0.5-0.9 [facility] Comment on above: Performed By: #### P T, PTT, BMP, CDP, TROPI #### [facility] [address], [place] [phone] [employer]: Guero Sandoval MD eGFR Can not be calculated Normal >60 [facility] Comment on above: Result Comment: These [...] P T, PTT, BMP, CDP, TROPI #### [facility] [address] [place], [place] [phone] [employer]: Guero Sandoval MD Glucose [Mass/Vol] 111 mg/dL High 70-99 [facility] Comment on above: Performed By: #### P T, PTT, BMP, CDP, TROPI #### [facility] [address] [place], [place] [phone] [employer]: Guero Sandoval MD Potassium [Moles/Vol] 3.8 mmol/L Normal 3.7-5.3 [facility] Comment on above: Performed By: #### P T, PTT, BMP, CDP, TROPI #### [facility] [address] [place] [address] [employer]: Guero Sandoval MD Sodium [Moles/Vol] 136 mmol/L Normal 135-144 [facility] Comment on above: Performed By: #### P T, PTT, BMP, CDP, TROPI #### [facility] [address] [place] [address] [employer]: Guero Sandoval MD Urea nitrogen [Mass/Vol] 6 mg/dL Normal 6-20 [facility] Comment on above: Performed By: #### P T, PTT, BMP, CDP, TROPI #### [facility] [address] [place] [phone] [employer]: Guero Sandoval MD Brain Natri. Peptideon 10-04 Pro-BNP <36 Normal 0-300 [facility] Comment on above: Result Comment: An a ge-independent cutoff point of 300 pg/ml has a 98% negative predictive value excluding acute heart failure. Performed By: #### B SURVEYOR OIL WELL DIRECTIONAL, TROPI #### [facility] [address] [place] [address] [employer]: Thor Hernández MD CBC with Diffon 10-05-2023 Abs. Basophil 0.04 k/uL Normal 0.00-0.20 [facility] Comment on above: Performed By: #### P T, PTT, BMP, CDP, TROPI #### [facility] [address] [place] [phone] [employer]: Guero Sandoval MD Abs.Imm.Granulocyte 0.16 k/uL Normal 0.00-0.30 [facility] Comment on above: Performed By: #### P T, PTT, BMP, CDP, TROPI #### [facility] [address] [place], [place] [phone] [employer]: Guero Sandoval MD Abs.Neutrophil (Seg) 8.05 k/uL High 2.5-7.0 [facility] Comment on above: Performed By: #### P T, PTT, BMP, CDP, TROPI #### [facility] [address] [place] [address] [employer]: Guero Sandoval MD Basophils/100 WBC (Bld) 0 % Normal 0-2 M [facility] Comment on above: Performed By: #### P T, PTT, BMP, CDP, TROPI #### [facility] [address] [place], [place] [phone] [employer]: Guero Sandoval MD Eosinophils (Bld) [#/Vol] 0.08 10*3/uL Normal 0.00-0.4 0 [facility] Comment on above: Performed By: #### P T, PTT, BMP, CDP, TROPI #### [facility] [address] [place] [address] [employer]: Guero Sandoval MD Eosinophils/100 WBC (Bld) 1 % Normal 0-5 [facility] Comment on above: Performed By: #### P T, PTT, BMP, CDP, TROPI #### [facility] [address] [place], [place] [phone] [employer]: Guero Sandoval MD Erythrocyte distribution width (RBC) [Ratio] 13.1 % Normal 12.1-15.2 [facility] Comment on above: Performed By: #### P T, PTT, BMP, CDP, TROPI #### [facility] [address] [place] [phone] [employer]: Guero Sandoval MD Hematocrit (Bld) [Volume fraction] 28.8 % Low 36.0-46.0 [facility] Comment on above: Performed By: #### P T, PTT, BMP, CDP, TROPI #### [facility] [address] [place] [phone] [employer]: Guero Sandoval MD Hemoglobin (Bld) [Mass/Vol] 9.8 g/dL Low 12.0-16.0 [facility] Comment on above: Performed By: #### P T, PTT, BMP, CDP, TROPI #### [facility] [address] [place] [phone] [employer]: Guero Sandoval MD Immature granulocytes/100 WBC (Bld) 2 % Normal 0-5 [facility] Comment on above: Performed By: #### P T, PTT, BMP, CDP, TROPI #### [facility] [address] [place] [phone] [employer]: Guero Sandoval MD Lymphocytes (Bld) [#/Vol] 1.61 10*3/uL Normal 1.00-4.8 0 [facility] Comment on above: Performed By: #### P T, PTT, BMP, CDP, TROPI #### [facility] [address] [place] [phone] [employer]ing: Guero Sandoval MD Lymphocytes/100 WBC (Bld) 15 % Normal 15-40 [facility] Comment on above: Performed By: #### P T, PTT, BMP, CDP, TROPI #### [facility] [address] [place] [phone] [employer]ing: Guero Sandoval MD MCH (RBC) [Entitic mass] 27.7 pg Normal 26.0-34.0 [facility] Comment on above: Performed By: #### P T, PTT, BMP, CDP, TROPI #### [facility] [address] [place] [address] [employer]: Guero Sandoval MD MCHC (RBC) [Mass/Vol] 34.0 g/dL Normal 31.0-37.0 [facility] Comment on above: Performed By: #### P T, PTT, BMP, CDP, TROPI #### [facility] [address] [place] [address] [employer]: Guero Sandoval MD MCV (RBC) [Entitic vol] 81.4 fL Normal 80.0-100.0 [facility] Comment on above: Performed By: #### P T, PTT, BMP, CDP, TROPI #### [facility] [address] [place] [address] [employer]: Guero Sandoval MD Monocytes (Bld) [#/Vol] 0.77 10*3/uL Normal 0.00-1.00 [facility] Comment on above: Performed By: #### P T, PTT, BMP, CDP, TROPI #### [facility] [address] [place] [address] [employer]: Guero Sandoval MD Monocytes/100 WBC (Bld) 7 % Normal 4-8 M [facility] Comment on above: Performed By: #### P T, PTT, BMP, CDP, TROPI #### [facility] [address] [place] [address] [employer]: Guero Sandoval MD Neutrophil (Seg) 75 % Normal 47-75 [facility] Comment on above: Performed By: #### P T, PTT, BMP, CDP, TROPI #### [facility] [address] [place] [address] [employer]: Guero Sandoval MD Platelet mean volume (Bld) [Entitic vol] 10.2 fL Normal 6.0-12.0 [facility] Comment on above: Performed By: #### P T, PTT, BMP, CDP, TROPI #### [facility] [address] [place] [address] [phone] [employer]: Guero Sandoval MD Platelets (Bld) [#/Vol] 275 10*3/uL Normal 140-450 [facility] Comment on above: Performed By: #### P T, PTT, BMP, CDP, TROPI #### [facility] [address] [place] [address] [phone] [employer]: Guero Sandoval MD RBC (Bld) [#/Vol] 3.54 10*6/uL Low 4.00-5.20 [facility] Comment on above: Performed By: #### P T, PTT, BMP, CDP, TROPI #### [facility] [address] [place] [address] [employer]: Guero Sandoval MD WBC (Bld) [#/Vol] 10.7 10*3/uL Normal 3.5-11.0 [facility] Comment on above: Performed By: #### P T, PTT, BMP, CDP, TROPI #### [facility] [address] [place] [address] [employer] Printing: Guero Sandoval MD CT CHEST PULMONARY EMBOLISM [...] Carlos Petersen MD 10/05/23 Final result Normal [facility] Liver Profileon 10-05-2023 Albumin [Mass/Vol] 3.0 g/dL Low 3.5-5.2 [facility] Comment on above: Performed By: #### L IVP #### [facility] [address] [place] [address] [employer]: Guero Sandoval MD Alkaline Phos 74 U/L Normal 35-104 [facility] Comment on above: Performed By: #### L IVP #### [facility] [address] [place] [address] [employer]: Guero Sandoval MD ALT [Catalytic activity/Vol] U/L Low 5-33 [facility] Comment on above: Performed By: #### L IVP #### [facility] [address] [place], [place] [phone] [employer]: Guero Sandoval MD AST [Catalytic activity/Vol] 9 U/L Normal <32 [facility] Comment on above: Performed By: #### L IVP #### [facility] [address] [place], [place] [phone] [employer]: Guero Sandoval MD Bilirubin [Mass/Vol] 0.3 mg/dL Normal 0.3-1.2 [facility] Comment on above: Performed By: #### L IVP #### [facility] [address] [place], [place] [phone] [employer]ing: Guero Sandoval MD Bilirubin, Indirect Can not be calculated Normal 0.0-1.0 [facility] Comment on above: Performed By: #### L IVP #### [facility] [address] [place], [place] [phone] [employer]: Guero Sandoval MD Bilirubin.indirect [Mass/Vol] mg/dL Normal <0.3 [facility] Comment on above: Performed By: #### L IVP #### [facility] [address] [place], [place] [phone] [employer]ing: Guero Sandoval MD Protein [Mass/Vol] 5.9 g/dL Low 6.4-8.3 [facility] Comment on above: Performed By: #### L IVP #### [facility] [address] [place], [place] [phone] [employer]: Guero Sandoval MD PTon 10-05-2023 INR Coag (PPP) [Relative time] 1.0 {INR} Normal [facility] Comment on above: Result Comment: Therapeutic Range: Moderate Anticoagulant Intensity: INR = 2.0-3.0 High Anticoagulant Intensity: INR = 2.5-3.5 Performed By: #### P T, PTT, BMP, CDP, TROPI #### [facility] [address] [place] [address] [employer]ing: Guero Sandoval MD PT Coag (PPP) [Time] 13.6 s Normal 11.5-14.2 [facility] Comment on above: Performed By: #### P T, PTT, BMP, CDP, TROPI #### [facility] [address] [place] [address] [employer]: Guero Sandoval MD Troponinon 10-05-2023 Troponin, High Sens <6 Normal 0-14 [facility] Comment on above: Result Comment: High Sensitivity Troponin values cannot be compared with other Troponin methodologies. Performed By: #### B SURVEYOR OIL WELL DIRECTIONAL, TROPI #### [address] [phone] [employer]: Thor Hernández MD Troponin, High Sens <6 Normal 0-14 [facility] Comment on above: Result Comment: High Sensitivity Troponin values cannot be compared with other Troponin methodologies. Performed By: #### P T, PTT, BMP, CDP, TROPI #### [facility] [address] [place] [address] [employer]: Guero Sandoval MD UA w/Reflex Cultureon 2023 Bilirubin, SemiQt,Ur Negative Normal NEG [facility] Comment on above: Performed By: #### U MICAO, UAX #### [facility] [address] [place] [address] Cl[employer]ing: Thor Hernández MD Blood, Urine Negative Normal NEG [facility] Comment on above: Performed By: #### U MICAO, UAX #### [facility] [address] [place] [address] [employer]ing: Thor Hernández MD Clarity (U) Cloudy Abnormal CLEAR [facility] Comment on above: Performed By: #### U MICAO, UAX #### [facility] [address] [place] [address] Cl[employer]ing: Thor Hernández MD Color (U) Yellow Normal YEL [facility] Comment on above: Performed By: #### U MICAO, UAX #### [facility] [address] [place] [address] [employer]: Thor Hernández MD Glucose Ql (U) 1+ mg/dL Abnormal NEG [facility] Comment on above: Performed By: #### U MICAO, UAX #### [facility] [address] [place] [phone] [employer]: Thor Hernández MD Ketones Ql (U) TRACE Abnormal NEG [facility] Comment on above: Performed By: #### U MICAO, UAX #### [facility] [address] [place] [address] [employer]: Thor Hernández MD Leukocyte esterase Test strip Ql (U) Negative Normal NEG [facility] Comment on above: Performed By: #### U MICAO, UAX #### [facility] [address] [place] [address] [employer]: Thor Hernández MD Nitrite,Ur Negative Normal NEG [facility] Comment on above: Performed By: #### U MICAO, UAX #### [facility] [address] [place] [address] [employer]: Thor Hernández MD PH,Ur 6.0 Normal 5.0-8.0 [facility] Comment on above: Performed By: #### U MICAO, UAX #### [facility] [address] [place] [address] [employer]: Thor Hernández MD Protein Ql (U) TRACE Abnormal NEG [facility] Comment on above: Performed By: #### U MICAO, UAX #### [facility] [address] [place] [address] [employer]: Thor Hernández MD Spec. Mercer,Ur 1.028 Normal 1.005-1.030 [facility] Comment on above: Performed By: #### U MICAO, UAX #### [address] [address] [employer]: Thor Hernández MD Urobilinogen,Ur Normal Normal 0.0-1.0 [facility] Comment on above: Performed By: #### U MICAO, UAX #### [address] [address] [employer]: Thor Hernández MD Urinalysis,Microon 4 Bacteria MODERATE Abnormal NONE [facility] Comment on above: Performed By: #### U MICAO, UAX #### [address] [address] [employer]: Thor Hernández MD Casts 2 TO 5 HYALINE Normal 0-8 [facility] Comment on above: Result Comment: Refe rence range defined for non-centrifuged specimen. Performed By: #### U MICAO, UAX #### [address] [address] [employer]: Thor Hernández MD Epithelial cells LM Ql (Urine sed) 20 TO 50 Normal 0-5 [facility] Comment on above: Performed By: #### U MICAO, UAX #### [address] [address] [employer]: Thor Hernández MD Urine RBC's 0 TO 2 Normal 0-4 [facility] Comment on above: Result Comment: Refe rence range defined for non-centrifuged specimen. Performed By: #### U MICAO, UAX #### [address] [address] [employer]: Thor Hernández MD Urine WBC's 5 TO 10 Normal 0-5 [facility] Comment on above: Performed By: #### U KAYDEN UAX #### [facility] [address] [address] [employer]: Thor Hernández MD AFP, Maternalon 07-28-2023 Determined by Ultrasound Normal [facility] Comment on above: Performed By: #### T SH, FT4, FT3 #### [facility] [address] [place] [address] [employer]: Thor Hernández MD #### AAFPM #### [facility] [address] [place] [address] [employer]: Thor Hernández MD [facility] [address] [place], [place] [phone] [employer] Printing: Tim Vizcarra MD Due Date SEE NOTE Normal [facility] Comment on above: Result Comment: Resu lts for Estimated Due Date: 01 06 24 Performed By: #### T SH, FT4, FT3 #### [facility] [address] [place] [address] [employer]: Thor Hernández MD #### AAFPM #### [address] [address] [employer]ing: Thor Hernández MD [facility] [address] [place] [address] [employer]ing: Tim Vizcarra MD Family History No Normal [facility] Comment on above: Performed By: #### T SH, FT4, FT3 #### [facility] [address] [place] [address] [employer]: Thor Hernández MD #### AAFPM #### [facility] [address] [place] [address] Cl[employer]: Thor Hernández MD [facility] [address] [place] [address] [employer]reader [employer]ing: Tim Vizcarra MD Gestat Age (exact) 16 wks, 4 days Normal [facility] Comment on above: Performed By: #### T SH, FT4, FT3 #### [address] [address] [employer]: Thor Hernández MD #### AAFPM #### [address] [address] [employer]: Thor Hernández MD [address] [phone] Cl[employer]ing: Tim Vizcarra MD Ins Req Matern Diab No Normal [facility] Comment on above: Performed By: #### T SH, FT4, FT3 #### [address] [address] [employer]: Thor Hernández MD #### AAFPM #### [address] [address] [employer]: Thor Hernández MD [address] [phone] [employer]ing: Tim Vizcarra MD Interpretation Screen Neg Normal [facility] Comment on above: Result Comment: (NOT E) INTERPRETATION: SCREEN NEGATIVE for open spina bifida Neural Tube Defects (NTD) Negative Pre-Test Post-Test Cutoff Neural Tube Defects Risks 1:452 1:3230 1:103 Comments: The risk of an open neural tube defect is less than the twin screening cut-off. This test was developed and its performance characteristics determined by [employer]. It has not been cleared or approved by the [place] Food and Drug Administration. This test was performed in a CLIA certified laboratory and is intended for clinical purposes. Performed By: #### T SH, FT4, FT3 #### [address] [address] [employer]: Thor Hernández MD #### AAFPM #### [facility] [address] [place] [address] [employer]: Thor Hernández MD [address] [phone] [employer]: Tim Vizcarra MD [age] [facility] Comment on above: Performed By: #### T , FT4, FT3 #### [facility] [address] [place] [address] [employer]: Thor Hernández MD #### AAFPM #### [facility] [address] [address] [employer]: Thor Hernández MD [address] [address] [employer]: Tim Vizcarra MD Maternal Race Nonblack [facility] Comment on above: Performed By: #### T SH, FT4, FT3 #### [facility] [address] [place] [address] [employer]: Thor Hernández MD #### AAFPM #### [address] [address] [employer]: Thor Hernández MD [address] [address] [employer]: Tim Vizcarra MD Maternal Weight 239.0 lbs. [facility] [facility] Comment on above: Performed By: #### T SH, FT4, FT3 #### [facility] [address] [place] [address] Cloth Spreader Screen Printing: Thor Hernández MD #### AAFPM #### [facility] [address] [address] Cloth Spreader Screen Printing: Thor Hernández MD [address] [address] Cloth Spreader Screen Printing: Tim Vizcarra MD MoM for AFP 1.71 Normal [facility] Comment on above: Performed By: #### T SH, FT4, FT3 #### [facility] [address] [place] [address] Cloth Spreader Screen Printing: Thor Hernández MD #### AAFPM #### [address] [address] Cloth Spreader Screen Printing: Thor Hernández MD [facility] [address] [place] [address] Cloth Spreader Screen Printing: Tim Vizcarra MD Number of Fetuses Twins Normal [facility] Comment on above: Performed By: #### T SH, FT4, FT3 #### [address] [address] Cl[employer] Spreader [employer] Printing: Thor Hernández MD #### AAFPM #### [address] [address] Cl[employer] Sp[employer] Printing: Thor Hernández MD [address] [phone] Cloth Spreader Screen Printing: Tim Vizcarra MD Patient's AFP 46 ng/mL Normal [facility] Comment on above: Performed By: #### T SH, FT4, FT3 #### [address] [address] Cloth Spreader Screen Printing: Thor Hernández MD #### AAFPM #### [address] [address] Cloth Spreader Screen Printing: Thor Hernándze MD [facility] [address] [place] [address] Cloth Spreader Screen Printing: Tim Vizcarra MD Smoking Unknown Normal [facility] Comment on above: Performed By: #### T SH, FT4, FT3 #### [address] [address] Cloth Spreader Screen Printing: Thor Hernández MD #### AAFPM #### [address] [address] Cloth Spreader Screen Printing: Thor Hernández MD [address] [address] Cloth Spreader Screen Printing: Tim Vizcarra MD Specimen See Note [facility] Comment on above: Result Comment: (NOT E) Initial sample Performed By: [employer] [address] [place] [address], [place] [address] Prevention Rn: Morro Modi MD, PhD CLIA Number: [id number] Performed By: #### T SH, FT4, FT3 #### [address] [address] Cl[employer] Printing: Thor Hernández MD #### AAFPM #### [address] [address] Cloth Spreader Screen Printing: Thor Hernández MD [address] [phone] Cloth Spreader Screen Printing: Tim Vizcarra MD [facility], [facility] 07-27-2023 Current Smoking INFORMATION NOT PROVIDED [facility] Comment on above: Performed By: #### T SH, FT4, FT3 #### [address] [address] Cloth Spreader Screen Printing: Thor Hernández MD #### AAFPM #### [address] [address] Cloth Spreader Screen Printing: Thor Hernández MD [address] [phone] Cloth Spreader Screen Printing: Tim Vizcarra MD [facility] Comment on above: Performed By: #### T SH, FT4, FT3 #### [address] [address] Cloth Spreader Screen Printing: Thor Hernández MD #### AAFPM #### [address] [address] Cloth Spreader Screen Printing: Thor Hernández MD [facility] [address] [place] [address] Cloth Spreader Screen Printing: Tim Vizcarra MD Diabetic Negative [facility] Comment on above: Performed By: #### T SH, FT4, FT3 #### [facility] [address] [place] [address] Cloth Spreader [employer] Printing: Thor Hernández MD #### AAFPM #### [address] [address] Cloth Spreader Screen Printing: Thor Hernández MD [address] [phone] Cloth Spreader Screen Printing: Tim Vizcarra MD [employer] INFORMATION NOT PROVIDED [facility] Comment on above: Performed By: #### T SH, FT4, FT3 #### [address] [address] Cloth Spreader Screen Printing: Thor Hernández MD #### AAFPM #### [address] [address] Cl[employer] Spreader [employer] Printing: Thor Hernández MD [address] [phone] Cloth Spreader Screen Printing: Tim Vizcarra MD Estimated Due Date 01/06/2024 [facility] Comment on above: Performed By: #### T SH, FT4, FT3 #### [facility] [address] [place] [address] Cloth Spreader Screen Printing: Thor Hernández MD #### AAFPM #### [address] [address] Cloth Spreader Screen Printing: Thor Hernández MD [address] [phone] Cloth Spreader Screen Printing: Tim Vizcarra MD Family History Negative [facility] Comment on above: Performed By: #### T SH, FT4, FT3 #### [facility] [address] [place] [address] Cloth Spreader Screen Printing: Thor Hernández MD #### AAFPM #### [facility] [address] [place] [address] Cloth Spreader Screen Printing: Thor Hernández MD [facility] [address] [place], [place] [phone] Cloth Spreader Screen Printing: Tim Vizcarra MD [employer] INFORMATION NOT PROVIDED [facility] Comment on above: Performed By: #### T SH, FT4, FT3 #### [facility] [address] [address] Cloth Spreader Screen Printing: Thor Hernández MD #### AAFPM #### [facility] [address] [address] Cloth Spreader Screen Printing: Thor Hernández MD [address] [address] Cloth Spreader Screen Printing: Tim Vizcarra MD LMP date 2023 [facility] Comment on above: Performed By: #### T SH, FT4, FT3 #### [facility] [address] [place] [address] Cloth Spreader Screen Printing: Thor Hernández MD #### AAFPM #### [address] [address] Cloth Spreader Screen Printing: Thor Hernández MD [facility] [address] [place], [place] [phone] Cloth Spreader Screen Printing: Tim Vizcarra MD Maternal date 1990 [facility] Comment on above: Performed By: #### T SH, FT4, FT3 #### [facility] [address] [place] [address] Cloth Spreader Screen Printing: Thor Hernández MD #### AAFPM #### [facility] [address] [place] [address] Cloth Spreader Screen Printing: Thor Hernández MD [facility] [address] [place] [address] Cloth Spreader Screen Printing: Tim Vizcarra MD Maternal Weight 239 Normal [facility] Comment on above: Performed By: #### T SH, FT4, FT3 #### [facility] [address] [place] [address] Cloth Spreader Screen Printing: Thor Hernández MD #### AAFPM #### [address] [address] Cloth Spreader Screen Printing: Thor Hernández MD [facility] [address] [place] [address] Cloth Spreader Screen Printing: Tim Vizcarra MD Monochorionic Twins Positive Normal [facility] Comment on above: Performed By: #### T SH, FT4, FT3 #### [address] [address] Cloth Spreader Screen Printing: Thor Hernández MD #### AAFPM #### [address] [address] Cloth Spreader Screen Printing: Thor Hernández MD [facility] [address] [place] [address] Cloth Spreader Screen Printing: Tim Vizcarra MD Patient Weight Units LBS Normal [facility] Comment on above: Performed By: #### T SH, FT4, FT3 #### [facility] [address] [place] [address] Cloth Spreader Screen Printing: Thor Hernández MD #### AAFPM #### [address] [address] Cloth Spreader Screen Printing: Thor Hernández MD [facility] [address] [place] [address] Cloth Spreader Screen Printing: Tim Vizcarra MD Race (Maternal) Normal [facility] Comment on above: Performed By: #### T SH, FT4, FT3 #### [address] [address] Cloth Spreader Screen Printing: Thor Hernández MD #### AAFPM #### [address] [address] Cloth Spreader Screen Printing: Thor Hernández MD [address] [phone] Cloth Spreader Screen Printing: Tim Vizcarra MD Repeat Specimen INFORMATION NOT PROVIDED [facility] Comment on above: Performed By: #### T SH, FT4, FT3 #### [address] [address] Cloth Spreader [employer] Printing: Thor Hernández MD #### AAFPM #### [address] [address] Cloth Spreader Screen Printing: Thor Hernández MD [address] [phone] Cloth Spreader Screen Printing: Tim Vizcarra MD Valproic/Carbamazep INFORMATION NOT PROVIDED [facility] Comment on above: Performed By: #### T SH, FT4, FT3 #### [address] [address] Cloth Spreader Screen Printing: Thor Hernández MD #### AAFPM #### [address] [address] Cl[employer]reader [employer] Printing: Thor Hernández MD [address] [address] Cloth Spreader Screen Printing: Tim Vizcarra MD Thyroxine, Freeon 07-27-2023 Thyroxine, Free 1.0 ng/dL Normal 0.92-1.68 [facility] Comment on above: Performed By: #### T SH, FT4, FT3 #### [address] [address] Cloth Spreader [employer] Printing: Thor Hernández MD #### AAFPM #### [address] [address] Cloth Spreader [employer] Printing: Thor Hernández MD [address] [address] Cloth Spreader Screen Printing: Tim Vizcarra MD Protein,Tot,[place] Uron 2023 Creatinine [Mass/Vol] 273.0 mg/dL High 28.0-217.0 [facility] Comment on above: Performed By: #### U RTPRT #### [address] [address] Cloth Spreader Screen Printing: Thor Hernández MD Tot Prot. Conc. 21 mg/dL Normal [facility] Comment on above: Result Comment: No n ormal range established. Performed By: #### U RTPRT #### [address] [address] Cloth Spreader [employer] Printing: Thor Hernández MD TP/Cre Ratio 0.08 Normal [facility] Comment on above: Performed By: #### U RTPRT #### [address] [address] Cloth Spreader Screen Printing: Thor Hernández MD T3, Freeon 3 Free T3 [Mass/Vol] 3.40 pg/mL Normal 2.00-4.40 [facility] Comment on above: Performed By: #### T SH, FT4, FT3 #### [address] [address] Cloth Spreader [employer] Printing: Thor Hernández MD #### AAFPM #### [address] [address] Cloth Spreader [employer] Printing: Thor Hernández MD [employer] [address] [place] [address] Cloth Spreader Screen Printing: Tim Vizcarra MD Thyroid Stim. Horm.on 2023 Thyroid Stim. Horm. <0.01 Low 0.27-4.20 [facility] Comment on above: Performed By: #### T SH, FT4, FT3 #### [facility] [address] [place], [place] [phone] Cloth Spreader Screen Printing: Thor Hernández MD #### AAFPM #### [facility] [address], [place] [phone] Cloth Spreader Screen Printing: Thor Hernández MD [facility] [employer] [address] [place] [address] Cloth Spreader Screen Printing: Tim Vizcarra MD ED Note-Physicianon 05-14-19 ED [...] see dentistry until she is cleared by [facility]. She does not have an appointment for [facility] to next week. She has no OB [...] day(s), # 15 tab(s), Refills(s) 0, Pharmacy: [facility], 160, cm, 05/13/23 11:33:00 EST, Height/Length [...] Oral, q6hr Follow-up With When Contact Information [facility] In 3 days 05/16/2023 EDT [address] [place] [address] Business (1) Additional Instructions: Dentistry follow-up Patient [...] to ensure accuracy, however, inadvertently computerized marine pipefitter mistakes may be present. Appropriate healthcare PPE was used in evaluating this patient. Problem List/Past Medical History Ongoing Acute hepatitis C Anxiety Apnea, sleep Dental caries PCOS (polycystic ovarian syndrome) Historical No qualifying data Procedure/Surgical History Delivery. Medications Inpatient ampicillin-sulbacta m additive + Sodium Chloride 0.9% intravenous solution 100 (more content not included)... Normal [facility] Comment on above: Result Comment: Elec tronically Signed By: Greg Stratton PA-C\.br\Date and Time Signed: 05/13/23 12:45 EST\.br\Electronically Co-Signed By: Jonathan Martinez DO\.br\Date and Time Co-Signed: 05/14/23 07:40 EST Consent for Treatmenton Consent for Treatment [id number] EC#1.00TIFF Normal [facility] Discharge Instructionson Discharge Instructions [id number] 53#1.00TIFF Normal [facility] ED Clinical Summaryon 2023 ED Clinical Summary [place] [id number] ED Clinical Summary Person Information Name: TIA MONROE [facility] Age: 33 Years : 1990 Sex: Female Language: Solomon Islander PCP: Linda Sheppard DO Marital Status: Visit [...] 13:02:19 05/13/2023 13:02:19 05/13/2023 13:02:19 AD[address]ESS: [address] [facility] [id number] PHYS DOC NOTES: MEDICAL INFORMATION: Prescriptions Given: New Medications [facility], [address] [place], [place] [id number], [phone] oxycodone (oxyCODONE 5 mg Tab) 1 Tablets [...] Dental Abscess Follow up: With: Address: When: [address] [address] Business (1) In 3 days 05/16/2023 Comments: Dentistry follow-up DIAGNOSIS: Dental abscess Normal [facility] ED Patient Education Noteon 05-13-2023 ED [...] these instructions at home: Medicines ? Take rzmc-yzd-sutsifx and prescription medicines only as told by [...] mouth. ? (more content not included)... Normal [facility] ED Patient Summaryon 024 ED Patient Summary [address] [address] Patient Discharge Instructions Person Information Name: TIA MONROE Age: 33 Years Arrival Date: 05/13/2023 11:19:01 Discharge Diagnosis: Dental abscess Primary Care Physician: Linda Sheppard DO Provider Information Primary Provider: Jonathan Martinez DO Advanced Golf Sales Manager:Greg Stratton PA-C The exam and treatment you received in the Emergency Department were for an urgent problem and are not intended as complete care. It is important that you follow up with a doctor, nurse practitioner, or physician?s assistant professor nurse education for ongoing care. If your symptoms become worse or you do not improve as expected and you are unable to reach your usual health care provider, you should return to the Emergency Department. We are available 24 hours a day. TIA MONROE has been given the following list of patient education materials, prescriptions and follow-up instructions: Follow-up Instructions: With: Address: When: [facility] [address] [address] Business (1) In 3 days 05/16/2023 Comments: Dentistry follow-up In the event that this physician does not participate in your insurance network, please consult with your insurance company to find a nearby participating provider. Patient Education Materials: Dental Abscess A MESSAGE TO ALL PATIENTS REGARDING OPIOIDS PRESCRIPTION OPIOIDS: WHAT YOU NEED TO KNOW Prescription opioids can be used to help relieve tiwaecmi-km-wjdkcx pain and are often prescribed following a [...] be struggling with addiction, tell your health child care associate and ask for guidance or call [facility] National Helpline at 9-342-6 (more content not included)... Normal [facility] Discharge Instructionson Discharge Instructions [id number] 40 [id number] 819#1.00TIFF Normal [facility] ED Clinical Summaryon 2023 ED Clinical Summary [place] [id number] ED Clinical Summary Person Information Name: TIA MONROE Maria Elena[facility] Age: 33 Years : 1990 Sex: Female Language: [place] Islander PCP: Linda Sheppard DO Marital Status: Visit [...] 23:59:00 05/11/2023 23:59:00 05/11/2023 23:59:00 AD[address]ESS: [address] [facility] [id number] PHYS DOC NOTES: MEDICAL INFORMATION: Prescriptions Given: New Medications [facility], [address], [place] [id number], [phone] amoxicillin-clavula cindi (Augmentin 875 mg oral tablet) [...] Medication PATIENT EDUCATION INFORMATION: Instructions: Dental Pain, Pxng-bm-Ytmn Follow up: With: Address: When: Linda Sheppard DO, [address] [place] [address] In 3 days 05/14/2023 DIAGNOSIS: 1:Pain, dental; 2:Infected dental caries; 3:First trimester ; Periapical abscess without sinus Normal [facility] ED Note-Physicianon 05-12-19 ED Note-Physician Basic Information Time Seen: Violet Walters PA-C 05/11/2023 22:59 Chief Complaint pt arrives for c/o dental pain on the right upper side. states cannot see her denitist d/t being . pt states seen in [place] [facility] and started on amoxcillin. History of Present Illness Patient is a 7-week 33-year-old female with history of PCOS that presents to the ED with her for evaluation of dental pain. Patient says pain started on Tuesday. She localizes it to the right upper jaw, radiates into her face ear and cheek. She went to [place] [facility] yesterday and was initiated on amoxicillin [...] day(s), # 14 tab(s), Refills(s) 0, Pharmacy: [facility], 160, cm, 05/11/23 21:53:00 EST, Height/Length Dosing, 110, kg, 05/11/23 21:53:00 EST, Weight Dosing chlorhexidine topical, 0.018 gm, 15 mL, Oral, BID, 480 mL, Refill(s) 0, (swish and spit; do not swallow), [facility], 160, cm, 05/11/23 21:53:00 EST, Height/Length Dosing, 110, kg, 05/11/23 21:53:00 EST, Weight Dosing (more content not included)... Normal [facility] Comment on above: Result Comment: Elec [...] these instructions at home: Medicines ? Take mknh-tdv-ijdchwj and prescription medicines only as told by [...] to the area. Brushing your teeth ? [place] your teeth twice a day using a [...] when you eat or drink. ? Take qezm-lmq-mmemynz and prescription medicines only as told by [...] Reviewed: 11/26/2020 Elsevier Patient Education ? 2022 [employer] Normal [facility] ED Patient Summaryon 024 ED Patient Summary [address] [address] Patient Discharge Instructions Person Information Name: TIA MONROE Age: 33 Years Arrival Date: 05/11/2023 21:25:54 Discharge Diagnosis: 1:Pain, dental; 2:Infected dental caries; 3:First trimester ; Periapical abscess without sinus Primary Care Physician: Linda Sheppard DO Provider Information Primary Provider: Zac Fields M.D. Advanced Golf Sales Manager:Violet Walters PA-C The exam and treatment you received in the Emergency Department were for an urgent problem and are not intended as complete care. It is important that you follow up with a doctor, nurse practitioner, or physician?s assistant professor nurse education for ongoing care. If your symptoms become [...] Instructions: With: Address: When: Linda Sheppard DO [address] [place] [address], Amelie C, [facility] [address] [place], [place] [id number] In 3 days 05/14/2023 In the event that this physician does not participate in your insurance network, please consult with your insurance company to find a nearby participating provider. Patient Education Materials: Dental Pain, Nsvj-od-Okfh A MESSAGE TO ALL PATIENTS REGARDING OPIOIDS PRESCRIPTION OPIOIDS: WHAT YOU NEED TO KNOW Prescription opioids can be used to help relieve ktjvehoz-lc-pcrvkt pain and are often prescribed following a [...] be struggling with addiction, tell your health child care associate an (more content not included)... Normal [facility] Consent for Treatmenton Consent for Treatment [id number] 96#1.00TIFF [facility] Progesteroneon 12-28-2022 Progesterone 12.60 ng/mL Normal [facility] Comment on above: Result Comment: Female: Follicular phase <0.19 ng/mL Ovulation phase 0.06-4.14 ng/mL Luteal phase 4.11-14.5 ng/mL Postmenopausal <0.13 ng/mL Performed By: #### P NICKY #### [facility] [address] [place] [address] Cloth Spreader Screen Printing: Thor Hernández MD Progesteroneon 11-24-2022 Progesterone 7.18 ng/mL High 0.0-0.15 [facility] Comment on above: Result Comment: Female: Follicular phase <0.19 ng/mL Ovulation phase 0.06-4.14 ng/mL Luteal phase 4.11-14.5 ng/mL Postmenopausal <0.13 ng/mL Performed By: #### P NICKY #### [facility] [address] [place] [address] Cloth Spreader Screen Printing: Thor Hernández MD , Urineon HCG ( test) Ql (U) Negative NEGATIVE [facility] XR ANKLE RIGHT (MIN 3 VIEWS) [...] Minimal ankle soft tissue edema. [facility] Radiology Study observation (narrative) [facility] XR ANKLE RIGHT (MIN 3 VIEWS) Ordered By: Bettye Johnson on 09-04-2022 [facility] Work Phone: Coding Summary.on 07-09-2022 Coding Summary. CD:[id number] bWw+PGhlYWQ+PN2ZWJM pF88ybBBhcT6vB1FDKB lOSywgQVBQTElOSyIgb oGnIQ8zwUDiSRMw IC8+GR5aITIeJrsgiPC yv1Y6sEY5O09sug6pOK aeoPD2KDCkLpAkelkxn 4dohAi9LMbxIdsySbMb MORjpV24QGJ4rH15Po3 7tAPlxWDsu9rigQj8Ie XvHMYjVPC1fGwxYMmbu 0UcCHUwV06zfJTue5Y2 IGNvbGxhcHNlOyBlbXB 4uY6ySJcgmqwaj0skym nkXea1yd57eQTrf6I3e IL3X3YvmlH8PGLvzCEj LrifwVRUbD5fbugty6u rktdyQcJsGSVcMVr2YX t1FEIjbCeoYpWwNJ01J JR7BBNsdxGrO1IfDRSw pZrtMzW7k1W5Wd8RU3T ZNidtQ7QSTHTNNMttcQ Q+ST92il10V3KiAobcB pp8JCMyNLK3iYY3wX7x PKHoIPdzy6E2mTE2G8K yyvQwlg7ih6tzOJNmAQ vkI72itTJjh3D0IRJea MT9WALuyRuuLdNxaX33 Oyc+RVLmqThaa4MiYxj tq9fbx5tayBl3RoyyXR CkyoDkrQyxPTQ7m2WgT a4eHPOmgGR9cMT8uL4p YuJrToA6QTnrS143NuW tbOPnVcajB15kN7EklN A+SKMqDye4CDAnxAlwO T5jJ9UlTFQvzrkwxZMh oLjqGP9zZNTyxhkyJUV vyU2xDMMxU2a0GgNsMo S9QIocM6OxBDMapgfrG z01zJ2tZkTjXrY7ZEzf Y0HxaoE5LDJelQOkIKy oRDZ0Q34jo5J5ICHdRA StTVV9tWA9tN0gsIhrz jogbGVmdDsgdmVydGlj KNelJVkzG592QYWnvAn nPkNvZGluZyBEYXRlOi AgMDUvMDUvMjAyMzwvd GQ+NRHrLKL2jJyyOUJs gMZqCZsgZe4rfLjkbSr oGQ8fPVUzxqbuRZWtfZ 6eWIKcpWSkjQzfGB0kT CLspaviz134MlWlREB4 FFFauAEiA0KjnV7cHmQ zGOGfURDpT0YtaRZhRH xdG843YAubOeV4ARXrv kIdZ8JcYEJjiBkeTxT9 i1L6Bu9Pt4YghxpcL0N ozTPzHpLrTzazJFb6T2 RkPjwvdHI+JA87MTIaZ F50KBn7WOC1oGciOZca ACAfC3NjsL3bHfLqWNA kZGRkOyc+PHRhYmxlIH dpZHRoPScxMDAlJyBzd DvoHI6pPw1sYNHhHHBp jDvgeTTqTaOrg5wyREU pXRmkQR1wzHpxT3HdyK E7YORpm4y5Vo59Q77kR 3JvdXA+FOYjxKG3ePV7 zA6dHdToUoI3IEnjW99 6FyAilJNdHxfnp8sdw1 obbCx8YbO9RHHxutUpa DbjMPT7m0YvDd49P44f IHdpZHRoPSIxNSUiIHZ elGlrtc9ylA4cSt1+PG GxaUV7aQB0hQ5kVyFjJ rQ5DLfgI183AjEkgPWg Imerf0sqn2uruPh2SqD sEBVmwpXasIfnOGG0l0 SsCc73G7XdbZqmc6ZyF tl6yd77jPZkv4C0lQS3 U7DwPPMzceughUMvrNr zNV7kFTKuobpmUVQhzA 2jDOMqO1a7QsXiKiL0V PhrC1MoakO9ZHIhmQLz BVLoiHJCqK0fdjfjs2o ttrvhCxCnUXVbCCk0OZ e8ULTcpNixBoBuBUW4H dV2ABH1hMFdmK8yoVci kwguvU9aEtz+OBY3tBH lxUMKMG8mJtyhlNX+PH ZhGPI1tFlvRQdlAQJjv E7eJSNiA6s5ZdTjBdV3 YIbhC3OdheP8XWEceWR oWSCueZWIjN5mphriq4 fyffkyCiSuDNChJQf9D Tf0IDCdqFcmKrOdUKA4 MjF7LNC8jOPueU6mkLx klwjxtA3lIkq+QmlydG uaCSQ5SRr0V8PzXbq4D ZZkaOvlKT5lmVBgNQib Ij6ueVdboJfmXW9sILT vkslrz100MzHds5qmIJ EaxOBaZKalGRU0Y04uj 0P3IGYaPDGlREY0mXE3 rQ2ssKucelxuuUHovVp gdmVydGljYWwtYWxpZ2 25LCGiuXbmFnWtCVx5F 0ArUmz0KLViqLhkJE2j fHVzHNahEd2zfRqhvTg yPV2eXIZhtwmbe079Oe Irp1yfMCMcwWBhHIjdB CC0A02yr7F3PCAzMUGa TBP6wPW9kJ0uiGctuli gbGVmdDsgdmVydGljYW oeANphQ990SZPdqYtsH rAfgFw9J6SwSfw5AKHt fCpuVO7cmKLhOCqdCr4 yiJaijQkgCT2dNFTwom nqj122PsHca8pgAZDbq SNiWQnhITS7T51ap0I5 IFGvWYDdYQN3eAX2zC0 hbGlnbjogbGVmdDsgdm ZaiCwiYQqoAYwmZ273P HRvcDsnPlBhdGllbnQg EPirUIj7W1NkDiptfAI +KS22EYNrXY96yFRdcI Ahk0xqjMj9OiNwZYJpX DX9qPlmHVfhq4XhBHIf S28ktPHld5J5MGWdaRl hqCBrFyGkaYD3eV3bXP pkqzcwi1vukbkkBdzuv 8ntlg34oC57J92pYOjn ZHRoPSIzMCUiIHZhbGl smm6taM8hVk6+PGNvbC M7sPK1qH6zGFMtLdU3A ByuT606NpOpeOKkGjjp o8aog9areLu9SdR0RRG kcwIpfYhcXEL8f8SzUx 68J08uQTytLCAsZQAtR YKrLKOqwNhovz0kfC9e Ii8+JGZjbFF6kRJ5mJ5 oYeRnNxC5NTxeG676Nv ZeuJXtIwqpW16mD1Ncl XA+CRFyIjd4IGDeeWsk BP9pyCKhHAhjBe4mVZX 5PzZtVjGhTOzaX4AxWM XfevkqngronKT4XVSpN SKetH66Do7hxVgvBHLu eJMUhK7mshjdy4gmpzo aWeKpOFLlPRs0NRa0EC DtoMjrKlRcLPD7YnY4J QU3sZDvnD4cvKxczjrv hP4dL1CtSGOelmejQx2 0mN5oWoEoRtX1UZvgQp c+Hh9VKkLFBlqdBiGHJ kRJRTwvdGQ+PHRkIHN0 mPouTVzfJNHksV2yTBG iJ1z9PkVpMaE1MOoqT2 GsSXPtrewyTc58wR1yB dYoHwJ2QWpaS3VzowR8 BPYdjFGtKJpdBHZ1F15 ll2A3UJUrLZQuWAJ1nI E3sE3vaWxohefojDZga DsgdmVydGljYWwtYWxp Q292YUJwtJifThVmAqD 2SpI1ZMU7H2ZkAfm2JH QseManVD0voYUoBLudZ n7vmBaurUpuQW2hIVFh phlcYBTnuS6tWIIiyUV rtIkdCO0dICGuiodzf3 09DcJzYJD4GJGrqIXaX 8RvsJ1vDpDdSKUcEMIk Q1ZvrMQfWZwlA568EDx sVuD8VGAdxnIpM5VqPB EfbHtfBiV6m8K2Pu5yD iBZZWFyczwvdGQ+PHRk VOI1wFseCGxxJJNwfW5 iEEVhE0m8CuDjDdJ2HT siC5HmORLwmsjlYs91u A5nBkOtHbD6MOorU6Zs haN4MMQkcYXyWGvjSVM 5H39ey0V8PRFoADYpRF J7jND7qK7wvIfohuvsl GVmdDsgdmVydGljYWwt TEvyP276YWWigQzoLuV lbWFsZTwvdGQ+PHRkIH O5dMlsZDwxZWTflZ8yW KKtU3c7ClWkJbF2HIos U9ScCEFxlaihTs45oZ4 zZtSnVeH1BYtyR2Kdod D8PTCaoOAlWIjiCXB6J 90ie6U7DRRsBVCgVVC1 mLK7zL6wmIsxidtrpUN mdDsgdmVydGljYWwtYW aoP290TDCkkJejQrDpv X7qBFAmYHblsOQwwZgw dGQ+FM34sb18V5TtBna oEew6AENnTUT0cTJ2bQ 9bNCKpFKbpe9S6eCF7J 7LwfwXiwt7xt3dcBTSz GHbpI82blUOmv2I7WHQ ghJJ1AXYjgNgdJtFfxH 93Oyc+WSBnmYule6DgK lzgt9hvp8opcKe0AwRe PNYqxvIrcWdhXCJ6x5M iUy41K12uRBzrXCVaJP XdSYBmPZNkaHhftz5pu G9wIi8+ZUNolVG4uFB6 qE6gWfPtLkW6BQowK10 0DaJeiPSdGzjou2axi5 hfeAd7NfQkMJSdgfZfc JhsZAF1r5TnOg58W6Wq hPghl2PrBpx1sq03bBQ mm7X6yAN1F6BqZSMprq dscHJaeGmwIC0eNIMck irtJWIrcD1mWKVdO0h5 RrGoGrO2BTfzE0OzgqF 6IGJvbGQgMTBwdCBUaW 0lblohx2dfhrozYoMwE TMzBGm4ZNa3LKUtmOgn RyNqFKX6XiH4FXI8mER feH7reGxutrunmK6uIe c+JUt3k6fovQDoEU0fx RA0DV31PP62gFIyh0U4 oFK1M2HrOBLvmdrhlhf ykBK0WZNkHOVleT24Kv 1vqUslMg2hGYNrVXY5U RHbtNTnD3GfbG5pEpSi XUIxLEZhJ7JnvDVzZSy cL721CDcfQcK3CEAtij EhN9MrQGEmlQoqZxB4b 5J4Re4XKP31YI68JA49 dZNli2J2sVS8A2GzKSB jilqzswajsWQ0GSIiCC JdrC52Re3tpYrxAe1pL BKwULU7BWCgcUQeZ2Aw vE8eBeDjQFGjKUEuL3K pgVVxZSebB797IMeqLj P9CPRmasFiL8DaVUIpi FwtEgN9n9W7Hr9FRo53 SH20EY93wHDov1W2yYR 9W4YsYYLgctlkhjsvwS R5QURvHQJnwW05Pg0st YdsPu7xCJHzXGT5CLJe tBGlD8MdlB2nUoDwACA wXFUpD7GddREeGVpuM2 58VIidDgF8LCCfnhWjM 7GjHDAjbDlbNqJ3u1A7 Wo0VVYvjpnj4R7GvSej vdHI+RH75TZRuFL42dM VmiJXaf0jcuDq2NiOaR ILoJCL6aApvMTjhk3Yw NTXuB92n (more content not included)... Normal [facility] [place] [facility] Consultation Noteon 07-07-19 Consultation Note Patient: TIA MONROE Age: 32 years Sex: Female : 1990 Associated Diagnoses: None Author: Bing PEDRAZA, Todd Lilly Basic Information Accompanied by: No one. Source [...] Problems Acute hepatitis C / SNOMED CT 854523760 / Confirmed Anxiety / SNOMED CT 65267720 / Confirmed Apnea, sleep / SNOMED CT 414861905 / Confirmed Dental caries / SNOMED CT 095804681 / Confirmed PCOS (polycystic ovarian syndrome) / SNOMED CT 259152830 / Confirmed Histories Past Medical History: Active Dental caries (046087450) Family History: No family history items have [...] (JUN 29 09:49) SBP 113 mmHg (JUN 29:49) DBP L 57mmHg (JUN 29:) Weight 115.6 kg (JUN 29:49) BMI 45.04 (JUN 29:) Constitutional: No acute [...] Patient agrees with plan of care. Normal [facility] [place] [facility] Comment on above: Result Comment: Elec tronically Signed By: Bing PEDRAZA, Todd Lilly\.br\Date and Time Signed: 07/06/22 13:28 EDT DHEA SERUMon 07-04-2022 Dehydroepiandrosterone (DHEA) 220 ng/dL Normal 31-701 [facility] Comment on above: Performed By: #### D KAN. ####[facility] [address] [place], [place] [address]CtSelwyn Layneshivam Daniel DHEA-SULFATEon 06-30-2022 DHEA-Sulfate 106.0 ug/dL Normal 84.8-378.0 [facility] Comment on above: Performed By: #### D DEEPTI ####[facility] [address] [place] [address]Dr. Nito Sanchez FSHon 06-30-2022 FSH 6.6 mIU/mL Normal [facility] Comment on above: Result Comment: Adul t Female: Follicular phase 3.5 - 12.5 Ovulation phase 4.7 - 21.5 Luteal phase 1.7 - 7.7 Postmenopausal 25.8 - 134.8 Performed By: #### L [facility] #### [facility] [address] [address] [address] Nito Sanchez LUTEINIZING HORMONE (LH)on 0 06-30-2022 LH 18.9 mIU/mL Normal [facility] Comment on above: Result Comment: Adul t Female: Follicular phase 2.4 - 12.6 Ovulation phase 14.0 - 95.6 Luteal phase 1.0 - 11.4 Postmenopausal 7.7 - 58.5 Performed By: #### L BCLH #### [facility] [address] [place] [address] Dr. Nito Sanchez PROLACTINon 06-30-2022 Prolactin 5.3 ng/mL Normal 4.8-23.3 [facility] Comment on above: Performed By: #### P ROLAC #### [facility] [address] [address] [address] Nito Sanchez CBC AUTO DIFFon 06-29-2022 BASO # 0.1 103/ul Normal 0.0-0.1 [facility] Comment on above: Performed By: #### C BC #### [facility] [address] [address] [address] Nito Sanchez Basophils/100 WBC (Bld) 0.5 % Normal 0.2-2.0 [facility] Comment on above: Performed By: #### C BC #### [facility] [address] [address] [address] Nito Sanchez EO # 0.2 103/ul Normal 0.0-0.7 [facility] Comment on above: Performed By: #### C BC #### [facility] [address] [place] [address] Dr. Nito Sanchez Eosinophils/100 WBC (Bld) 1.6 % Normal 0.9-7.0 [facility] Comment on above: Performed By: #### C BC #### [facility] [address] [place] [address] Dr. Nito Sanchez Erythrocyte distribution width (RBC) [Ratio] 13.6 % Normal 11.0-15.0 [facility] Comment on above: Performed By: #### C BC #### [facility] [address] [place] [address] Dr. Nito Sanchez Hematocrit (Bld) [Volume fraction] 39.7 % Normal 36.0-48.0 [facility] Comment on above: Performed By: #### C BC #### [facility] [address] [place] [address] Dr. Nito Sanchez Hemoglobin (Bld) [Mass/Vol] 13.1 g/dL Normal 12.0-16.0 [facility] Comment on above: Performed By: #### C BC #### [facility] [address] [place] [address] Dr. Nito Sanchez IG # 0.05 10e3/ul Critically high 0.00-0.03 [facility] Comment on above: Performed By: #### C BC #### [facility] [address] [place] [address] Dr. Nito Sanchez IG % 0.5 % Normal 0.0-0.5 [facility] Comment on above: Performed By: #### C BC #### [facility] [address] [place] [address] Dr. Nito Sanchez LYMPH # 2.6 103/ul Normal 1.2-3.8 [facility] Comment on above: Performed By: #### C BC #### [facility] [address] [place] [address] Dr. Nito Sanchez Lymphocytes/100 WBC (Bld) 25.3 % Normal 20.5-60.0 [facility] Comment on above: Performed By: #### C BC #### [facility] [address] [place] [address] Dr. Nito Sanchez MANUAL DIFF REQ NO Normal [facility] Comment on above: Performed By: #### C BC #### [facility] [address] [place] [address] Dr. Nito Sanchez MCH (RBC) [Entitic mass] 27.1 pg Normal 26.7-34.0 [facility] Comment on above: Performed By: #### C BC #### [facility] [address] [place] [address] Dr. Nito Sanchez MCHC (RBC) [Mass/Vol] 33.0 g/dL Normal 29.9-35.2 [facility] Comment on above: Performed By: #### C BC #### [facility] [address] [place] [address] Dr. Nito Sanchez MCV (RBC) [Entitic vol] 82.2 fL Normal 81.0-99.0 [facility] Comment on above: Performed By: #### C BC #### [facility] [address] [place] [address] Dr. Nito Sanchez MONO # 0.5 103/ul Normal 0.3-0.8 [facility] Comment on above: Performed By: #### C BC #### [facility] [address] [place] [address] Dr. Nito Sanchez Monocytes/100 WBC (Bld) 5.0 % Normal 1.7-12.0 [facility] Comment on above: Performed By: #### C BC #### [facility] [address] [place] [address] Dr. Nito Sanchez NEUT # 6.9 103/ul Critically high 1.4-6.5 [facility] Comment on above: Performed By: #### C BC #### [facility] [address] [place] [address] Dr. Nito Sanchez Neutrophils/100 WBC (Bld) 67.1 % Normal 43.0-75.0 [facility] Comment on above: Performed By: #### C BC #### [facility] [address] [place] [address] Dr. Nito Sanchez Platelet mean volume (Bld) [Entitic vol] 10.0 fL Normal 9.5-13.5 [facility] Comment on above: Performed By: #### C BC #### [facility] [address] [place] [address] Dr. Nito Sanchez PLT 313 103/ul Normal 150-450 [facility] Comment on above: Performed By: #### C BC #### [facility] [address] [place] [address] Dr. Nito Sanchez RBC 4.83 106/ul Normal 4.20-5.40 [facility] Comment on above: Performed By: #### C BC #### [facility] [address] [place] [address] Dr. Nito Sanchez WBC 10.3 103/ul Normal 4.0-11.0 [facility] Comment on above: Performed By: #### C BC #### [facility] [address] [place] [address] Dr. Nito Sanchez Consent for Treatmenton 06-06 Consent for Treatment [id number] 650#1.00CD:127 Normal [facility] [place] [facility] FREE T4on 06-29-2022 Free T4 [Mass/Vol] 1.01 ng/dL Normal 0.76-1.46 [facility] Comment on above: Performed By: #### F T4 #### [facility] [address] [place] [address] Dr. Nito Sanchez GLYCOHEMOGLOBIN A1Con 2022 ADA RECOMMENDATION SEE BELOW Normal [facility] Comment on above: Result Comment: ADA RECOMMENDED LIMIT 4.0 - 6.0 ADA THERAPEUTIC TARGET < 7.0 ACTION SUGGESTED > 7.0 Performed By: #### A 1C #### [facility] [address] [place] [address] Dr. Nito Sanchez Glucose [Mass/Vol] 108 mg/dL Normal [facility] Comment on above: Performed By: #### A 1C #### [facility] [address] [place] [address] Dr. Nito Sanchez HbA1c (Bld) [Mass fraction] 5.4 % Normal 4.5-6.2 [facility] Comment on above: Performed By: #### A 1C #### [facility] [address] [place] [address] Dr. Nito Sanchez HIPAA Forms Officeon 023 HIPAA Forms Office [id number] 602#1.00CD:127 Normal [facility] [place] [facility] Legal Correspondence Officeo n 06-29-2022 Legal Correspondence Office [id number] 270#1.00CD:127 Normal [facility] [place] [facility] Legal Correspondence Office [id number] 787#1.00CD:127 Normal [facility] [place] [facility] Office/Clinic Note-Physician on 06-29-2022 Office/Clinic Note-Physician [id number] 515#1.00CD:127 Normal [facility] [place] [facility] Orders Officeon 06-29-2022 Orders Office [id number] 642#1.00CD:127 Normal [facility] [place] [facility] PREG QUANT HCGon 06-29-2022 HCG QUANT 1 mIU/mL Normal [facility] Comment on above: Performed By: #### T BERNICE, PREGQNT #### [facility] [address] [place] [address] Dr. Nito Sanchez HCG RANGE SEE BELOW Normal [facility] Comment on above: Result Comment: 5-50 0.2-1 WEEK 50-500 1-2 WEEKS 100-5,000 2-3 WEEKS 500-10,000 3-4 WEEKS 1,000-50,000 4-5 WEEKS 10,000-100,000 5-6 WEEKS 15,000-200,000 6-8 WEEKS 10,000-100,000 2-3 MONTHS Performed By: #### T SH, PREGQNT #### [facility] [id number] Nito Sanchez Patient Correspondenceon Patient Correspondence [id number] 946#1.00CD:127 Normal [facility] [place] [facility] Patient Correspondence [id number] 137#1.00CD:127 Normal [facility] [place] [facility] Patient Correspondence [id number] 273#1.00CD:127 Normal [facility] [place] [facility] Patient Correspondence [id number] 879#1.00CD:127 Normal [facility] [place] [facility] Patient Correspondence [id number] 956#1.00CD:127 Normal [facility] [place] [facility] Patient History Officeon Patient History Office [id number] 983#1.00CD:127 Normal [facility] [place] [facility] Patient History Office [id number] 721#1.00CD:127 Normal [facility] [place] [facility] Radiology Outside Office Customer Experience Associate yon 06-29-2022 Radiology Outside Office Copy [id number] 142#1.00CD:127 Normal [facility] [place] [facility] TSHon 06-29-2022 TSH 0.848 uIU/mL Normal 0.358-3.740 [facility] Comment on above: Performed By: #### T SH, PREGQNT #### [facility] [address] [address] [address] Nito Sanchez US PELVIS AND TRANSVAGon [...] by: BETTYE DANIELS Date: 2022-06-29 15:17 Normal [facility] PAP ACOG PANEL 2: 30 to 65on 06-19-2022 . . Normal [facility] Comment on above: Result Comment: Perf ormed at: WB Performed By: #### 4 [id number] #### [facility] [address] [address] [address] Nito Sanchez Age Gdln ACOG Testing 30-65 Normal [facility] Comment on above: Performed By: #### 4 [id number] #### [facility] [address] [address] [address] Nito Sanchez DIAGNOSIS: Comment Normal [facility] Comment on above: Result Comment: NEGA TIVE FOR INTRAEPITHELIAL LESION OR MALIGNANCY. Performed at: WB Performed By: #### 4 [id number] #### [facility] [address] [address] [address] Nito Sanchez HPV Aptima Negative Normal Negative [facility] Comment on above: Result Comment: This nucleic acid amplification test detects fourteen high-risk HPV types (16,18,31,33,35,39,45,51,52,56,58,59,66,68) without differentiation. Performed at: =G Performed By: #### 4 [id number] #### [facility] [address] [address] [address] Nito Sanchez HPV Genotype Reflex Comment Normal [facility] Comment on above: Result Comment: Crit eria not met, HPV Genotype not performed. Performed at: WB Performed By: #### 4 [id number] #### [facility] [address] [place] [address] Dr. Nito Sanchez Methodology: Comment Normal [facility] Comment on above: Result Comment: This liquid based ThinPrep(R) pap test was screened with the use of an image guided system. Performed at: WB Performed By: #### 4 [id number] #### [facility] [address] [place] [address] Dr. Nito Sanchez Note: Comment Normal [facility] Comment on above: Result Comment: The Pap smear is a screening test designed to aid in the detection of premalignant and malignant conditions of the uterine cervix. It is not a diagnostic procedure and should not be used as the sole means of detecting cervical cancer. Both false-positive and false-negative reports do occur. . Performed at: WB Performed By: #### 4 [id number] #### [facility] [address] [place] [address] Dr. Nito Sanchez Performed by: Comment Normal [facility] Comment on above: Result Comment: Nanda Treadwell, [employer] (ASCP) Performed at: WB Performed By: #### 4 [id number] #### [facility] [address] [place] [address] Dr. Nito Sanchez Specimen adequacy: Comment Normal [facility] Comment on above: Result Comment: Sati sfactory for evaluation. Endocervical and/or squamous metaplastic cells (endocervical component) are present. Performed at: WB Performed By: #### 4 [id number] #### [facility] [address] [place] [address] MAXILLOFACIAL WO CONTRAST on 05-11-2022 Recent extraction of the right mandibular and maxillary second molar teeth with presence of air in the respective tooth sockets. No evidence of edema in the sublingual space or the buccal space Probable periapical abscess involving the right maxillary premolar tooth adjacent to the first molar tooth. [facility] RIS CONSOLIDATED EXAM: CT MAXILLOFACIAL [...] visualized intracranial contents show no acute process. [facility] Phil Romero MD - 05/11/2022 [...] tooth adjacent to the first molar tooth. [employer] Work Phone: Radiology Study observation (narrative) [employer] Work Phone: CT MAXILLOFACIAL WO CONTRAST Ordered By: Phil Mary on 05-11-2022 [employer] Work Phone: Urine Preg (Lab)on 3 Beta HCG ( test) Ql (U) Negative NEGATIVE [employer] HCG, Quantitative, on 03-29-2022 hCG Quant NINF [employer] Comment on above: Non-preg premeno <=5 Postmeno <=8 Male <=3 If HCG results do not concur with clinical observations, additional testing to confirm results is recommended. ALEXANDRA PANIAGUA [facility] COVID-19, Rapidon 07-22-2021 SARS-CoV-2 (COVID-19) RNA KALPESH+probe Ql (Unsp spec) Not detected Not Detected [facility] Comment on above: Rapid NAAT: [...] management decisions. Fact sheet for Healthcare Providers: https://www.fda.gov/media/376234/download Fact sheet for Patients: https://www.fda.gov/media/869219/download Methodology: Isothermal Nucleic Acid Amplification Specimen Description .NASOPHARYNGEAL SWAB [facility] Strep Screen Group A Throato n 07-22-2021 S. pyogenes Ag Ql (Throat) Negative NEGATIVE [facility] Comment on above: Rapid Strep A negati ve. A negative Rapid Group A Strep Screen result does not rule out the possibility of Group A Streptococci in the specimen. A Group A Strep DNA test is available upon request. Source .THROAT SWAB [facility] MR LUMBAR SPINE [facility] MR LUMBAR SPINE WITHOUT CONTRAST EXAMINATION: [...] foraminal stenosis. 2. No fracture or spondylolisthesis. [facility] Workstation ID: [id number] Dictated by: JONATHAN LINARES on TueJun 18, 2021 11:51:00 AM EDT Transcribed by: ZULMA CARDENAS on TueJun 18, 2021 11:58:13 AM EDT Finalized by: JONATHAN LINARES on TueJun 18, 2021 12:35:45 PM EDT Normal [facility] Comment on above: Order Comment: Injur y/Trauma or Illness?:Illness/Other How long have you had these symptoms (acute/chronic)?:Chronic Reason for exam?:LBP AND bilat hip pain x years, nki Type of Exam?:Subsequent/Follow-up Additional signs and symptoms?:. CBC panel Auto (Bld)on 04-16 Erythrocyte distribution width (RBC) [Entitic vol] 14.0 % 11.6 - 14.8 % [facility] Hematocrit (Bld) [Volume fraction] 38.6 % 36.0 - 46.0 % [facility] Hemoglobin (Bld) [Mass/Vol] 12.1 g/dL 12.0 - 16.0 g/dL [facility] Interpretation and review of laboratory results Abnormal [facility] MCH (RBC) [Entitic mass] 25.4 pg Low 26. 0 - 34.0 pg [facility] MCHC (RBC) [Mass/Vol] 31.3 g/dL 31.0 - 37.0 g/dL [facility] MCV (RBC) [Entitic vol] 81.1 fL 80.0 - 100.0 fL [facility] Platelet mean volume (Bld) [Entitic vol] 10.0 fL 9.4 - 12.4 fL [facility] Platelets (Bld) [#/Vol] 379 10*3/uL [facility] RBC (Bld) [#/Vol] 4.76 10*6/uL [facility] WBC (Bld) [#/Vol] 9.85 10*3/uL [facility] Comprehensive metabolic 2000 panelon 04-16-2021 Albumin [Mass/Vol] 3.7 g/dL 3.2 - 5.2 g/dL [facility] ALP [Catalytic activity/Vol] 95 U/L 40 - 140 U/L [facility] ALT [Catalytic activity/Vol] 36 U/L 14 - 65 U/L [facility] Anion gap [Moles/Vol] 11 mmol/L 10 - 2 0 mmol/L [facility] AST [Catalytic activity/Vol] 22 U/L 0 - 45 U/L [facility] Bilirubin [Mass/Vol] 0.3 mg/dL 0.0 - 1 .3 mg/dL [facility] Calcium [Mass/Vol] 9.3 mg/dL 8.4 - 10. 2 mg/dL [facility] Chloride [Moles/Vol] 105 mmol/L 98 - 10 8 mmol/L [facility] Creatinine [Mass/Vol] 0.68 mg/dL 0.40 - 1.10 [facility] GFR/1.73 sq M.predicted CKD-EPI (S/P/Bld) [Vol rate/Area] 117 >=60 mL/min/1.73 m2 [facility] Glucose [Mass/Vol] 76 mg/dL 65 - 99 mg/dL [facility] HCO3 [Moles/Vol] 26 mmol/L 21 - 32 mmol/L [facility] Interpretation and review of laboratory results Normal [facility] Potassium [Moles/Vol] 4.2 mmol/L 3.5 - 5.1 mmol/L [facility] Protein [Mass/Vol] 7.5 g/dL 6.0 - 8.0 g/dL [facility] Sodium [Moles/Vol] 138 mmol/L 135 - 145 mmol/L [facility] Urea nitrogen [Mass/Vol] 13 mg/dL 8 - 25 mg/dL [facility] Urea nitrogen/Creatinine [Mass ratio] 19.1 mg/mg [facility] The eGFR should be used for monitoring renal function only and not for medication dosing. [facility] Lipid 1996 panelon 2 Cholesterol [Mass/Vol] 195 mg/dL 100 - 199 mg/dL [facility] Comment on above: National Cholesterol Education Program Guidelines: Cholesterol Desirable: <200 mg/dL Borderline High: 200-239 mg/dL High: greater than or equal to 240 mg/dL Cholesterol in HDL [Mass/Vol] 56 mg/dL 40 - 59 [facility] Comment on above: National Cholesterol Education Program Guidelines: HDL Cholesterol Low: <40 mg/dL Near Optimal: 40-59 mg/dL High: greater than or equal to 60 mg/dL Cholesterol in LDL [Mass/Vol] 109 mg/dL 10 - 130 mg/dL [facility] Comment on above: National Cholesterol Education Program Guidelines: LDL Cholesterol Optimal: <100 mg/dL Near Optimal/above Optimal: 100-129 mg/dL Borderline High: 130-159 mg/dL High: 160-189 mg/dL Very High: greater than or equal to 190 mg/dL Cholesterol non HDL [Mass/Vol] 139 mg/dL [facility] Comment on above: National Cholesterol Education Program Guidelines: NON HDL Cholesterol Desirable: <130 mg/dL Borderline High: 130-159 mg/dL High: 160-189 mg/dL Very High: > or = 190 mg/dL Cholesterol.total/Cholest elton in HDL [Mass ratio] 3.5 {ratio} ratio [facility] Comment on above: Female Cholesterol/H DL Ratio: Average risk: 4.4 1/2 average risk: 3.3 2 x average risk: 7.1 Interpretation and review of laboratory results Abnormal [facility] Triglyceride [Mass/Vol] 151 mg/dL High 30 - 150 mg/dL [facility] Comment on above: National Cholesterol Education Program Guidelines: Triglyceride Normal: <150 mg/dL Borderline High: 150-199 mg/dL High: 200-499 mg/dL Very High: greater than or equal to 500 mg/dL No Panel Informationon 04-16 [facility] TSH DL <= 0.005 mIU/L Qnon 0 04-16-2021 Interpretation and review of laboratory results Normal [facility] TSH Qn 1.04 m[IU]/L [facility] Basic Metabolic Panel w/ Ref ray to MGon 03-23-2021 Anion gap [Moles/Vol] 13 mmol/L 9 - 17 mmol/L [facility] Calcium [Mass/Vol] 8.8 mg/dL 8.6 - 10. 4 mg/dL [facility] Chloride [Moles/Vol] 104 mmol/L 98 - 10 7 mmol/L [facility] [employer] CO2 [Moles/Vol] 21 mmol/L 20 - 31 mmol/L [facility] Creatinine [Mass/Vol] 0.65 mg/dL 0.50 - 0.90 mg/dL [facility] GFR >60 >60 mL/min [facility] GFR Non- >60 >60 mL/min [facility] GFR/1.73 sq M.predicted MDRD (S/P/Bld) [Vol rate/Area] [facility] Comment on above: Average GFR for 30-3 9 years old: 107 mL/min/1.73sq m Chronic Kidney Disease: <60 mL/min/1.73sq m Kidney failure: <15 mL/min/1.73sq m eGFR calculated using average adult body mass. Additional eGFR calculator available at: http://www.[employer]/multiple_crcl_2012.htm GFR/1.73 sq M.predicted MDRD (S/P/Bld) [Vol rate/Area] NOT REPORTED [facility] Glucose [Mass/Vol] 104 mg/dL High 70 - 99 mg/dL [facility] Interpretation and review of laboratory results Abnormal [facility] th Potassium [Moles/Vol] 3.7 mmol/L 3.7 - 5.3 mmol/L [facility] Sodium [Moles/Vol] 138 mmol/L 135 - 144 mmol/L [facility] Urea nitrogen (BldV) [Mass/Vol] 15 mg/dL 6 - 20 mg/dL [facility] Urea nitrogen/Creatinine (Bld) [Mass ratio] 23 High [facility] CBC Auto Differentialon 03-07 Absolute Eos # 0.10 [facility] th Absolute Immature Granulocyte NOT REPORTED [facility] Absolute Lymph # 0.60 Low [facility] alth Absolute [place] [facility].50 [facility] Basophils (Bld) [#/Vol] 0.00 10*3/uL [facility] Basophils/100 WBC (Bld) 0 % 0 - 2 % [facility] Differential Type YES [facility] ealth Eosinophils/100 WBC (Bld) 2 % 0 - 5 % [facility] Hematocrit (Bld) [Volume fraction] 34.6 % Low 36 - 46 % [facility] Hemoglobin.gastrointestin al spec 1 Ql (Stl) 11.7 g/dL Low 12.0 - 16.0 g/dL [facility] Immature Granulocytes NOT REPORTED 0 % [facility] Interpretation and review of laboratory results Abnormal [facility] Lymphocytes/100 WBC (Bld) 13 % Low 15 - 40 % [facility] MCH (RBC) [Entitic mass] 26.4 pg 26 - 34 pg [facility] MCHC (RBC) [Mass/Vol] 33.8 g/dL 31 - 3 7 g/dL [facility] MCV (RBC) [Entitic vol] 78.2 fL Low 80 - 100 fL [facility] Monocytes/100 WBC (Bld) 10 % High 4 - 8 % [facility] NRBC Automated NOT REPORTED per 100 WBC [facility] Platelet distribution width (Bld) [Ratio] 14.4 % 12.1 - 15.2 % [facility] Platelet Estimate NOT REPORTED [facility] Platelet mean volume (Bld) [Entitic vol] NOT REPORTED 6.0 - 12.0 fL [facility] Platelets (Bld) [#/Vol] 259 10*3/uL [facility] RBC (Bld) [#/Vol] 4.43 10*6/uL 4.0 - 5.2 m/uL [facility] RBC (Bld) [#/Vol] NOT REPORTED [facility] Segmented neutrophils/100 WBC (Bld) 75 % 47 - 75 % [facility] Segs Absolute 3.60 [facility] [#/Vol] 4.8 10*3/uL [facility] WBC (Bld) [#/Vol] NOT REPORTED [facility] COVID-19, Rapidon 03-23-2021 Interpretation and review of laboratory results Abnormal [facility] SARS-CoV-2 (COVID-19) RNA KALPESH+probe Ql (Unsp spec) Detected Abnormal Not Detected [facility] Comment on above: Rapid NAAT: [...] this assay. Fact sheet for Healthcare Providers: https://www.fda.gov/media/357404/download Fact sheet for Patients: https://www.fda.gov/media/519287/download Methodology: Isothermal Nucleic Acid Amplification Results reported to the appropriate Health Department Specimen Description .NASOPHARYNGEAL SWAB [facility] No Panel Informationon 03-23 Direct Exam Negative [facility] Rapid influenza A/B antigens on 03-23-2021 Special Requests NOT REPORTED [facility] Specimen Description .NASOPHARYNGEAL SWAB [facility] COVID-19, RapidOrdered By: Shayy Springer on 12-27-2020 SARS-CoV-2 (COVID-19) RNA KALPESH+probe Ql (Unsp spec) Not detected Not Detected [facility] Work Phone: Comment on above: Rapid [...] management decisions. Fact sheet for Healthcare Providers: https://www.fda.gov/media/354756/download Fact sheet for Patients: https://www.fda.gov/media/646693/download Methodology: Isothermal Nucleic Acid Amplification Specimen Description .NASOPHARYNGEAL SWAB [place] Phone: [place] Phone: Strep Screen Group A ThroatO rdered By: Wayne Springer on 12-27-2020 S. pyogenes Ag IA Ql (Unsp spec) Rapid Strep A negative. A negative Rapid Group A Strep Screen result does not rule out the possibility of Group A Streptococci in the specimen. A Group A Strep DNA test is available upon request. [place] Phone: Special Requests NOT REPORTED [place] Phone: Specimen Description .THROAT [employer] Phone: [place] Phone: XR SHOULDER RIGHT (MIN 2 VIE WS)Ordered By: Anuj Quinn on 11-20-2020 No acute fracture or traumatic malalignment. [place] Phone: EXAMINATION: XR SHOULDER RIGHT (MIN 2 VIEWS), , 11/20/2020 9:30 PM EDT INDICATION: Reason for exam:->shoulder pain HISTORY: Ordering Provider Reason for Exam: Technologist Note: Additional: COMPARISON: None. TECHNIQUE: Right shoulder x-ray: 3 view(s). FINDINGS: No acute fracture. Glenohumeral and acromioclavicular joints are anatomically aligned. Joint spaces are preserved. Soft tissues are unremarkable. [place] Phone: Ward, pn Incoming Radiant Results From [employer] - 11/20/2020 9:55 PM EDT EXAMINATION: XR [...] IMPRESSION: No acute fracture or traumatic malalignment. [employer] Work Phone: [employer] Work Phone: COVID-19, MOLECULARon 2020 SARS-CoV-2 (COVID-19) RNA KALPESH+probe Ql (Unsp spec) Not detected Normal Not Detected [facility] Comment on above: Order Comment: : COV [...] at the following links: For Healthcare Providers: https://www.fda.gov/media/480407/download For Patients: https://www.fda.gov/media/872703/download Performed By: #### L [id number] #### [facility] [address] [place] [address] Joe Rider M.D. [id number] HbA1c (Bld) [Mass fraction]O rdered By: Zelda Bautista on 07-09-2020 Interpretation and review of laboratory results Normal [facility] POC Hemoglobin [id number] By : Zelda Bautista on 07-09-2020 HbA1c (Bld) [Mass fraction] 5.2 % 4.0 - 6.0 % [facility] HbA1c (Bld) [Mass fraction]O rdered By: Lelo Gallegos on 06-09-2020 Interpretation and review of laboratory results Normal [facility] POC Hemoglobin [id number] By : Lelo Gallegos on 06-09-2020 HbA1c (Bld) [Mass fraction] 5.6 % 4.0 - 6.0 % [facility] CBC Auto Differentialon 03-08 Basophils (Bld) [#/Vol] 0.00 10*3/uL [place] Basophils/100 WBC (Bld) 0 % 0 - 2 % [place] Differential Type YES [place] Eosinophils (Bld) [#/Vol] 0.10 10*3/uL [place] Eosinophils/100 WBC (Bld) 1 % 0 - 5 % [place] Erythrocyte distribution width (RBC) [Ratio] 14.2 % 12.1 - 15.2 % [place] Hematocrit (Bld) [Volume fraction] 36.1 % 36 - 46 % [place] Hemoglobin (Bld) [Mass/Vol] 12.5 g/dL 12 - 16 g/dL [place] Interpretation and review of laboratory results Abnormal [place] Lymphocytes (Bld) [#/Vol] 2.00 10*3/uL [place] Lymphocytes/100 WBC (Bld) 14 % Low 15 - 40 % [place] MCH (RBC) [Entitic mass] 30.6 pg 26 - 34 pg [place] MCHC (RBC) [Mass/Vol] 34.5 g/dL 31 - 3 7 g/dL [place] MCV (RBC) [Entitic vol] 88.5 fL 80 - 100 fL [place] Monocytes (Bld) [#/Vol] 0.80 10*3/uL [place] Monocytes/100 WBC (Bld) 6 % 4 - 8 % [place] Platelet mean volume (Bld) [Entitic vol] NOT REPORTED 6 - 12 fL [place] Platelets (Bld) [#/Vol] 300 10*3/uL [place] Platelets (Bld) [#/Vol] NOT REPORTED [place] RBC (Bld) [#/Vol] 4.08 10*6/uL 4 - 5.2 m/uL [place] RBC morphology finding Nom (Bld) NOT REPORTED [place] Segmented neutrophils/100 WBC (Bld) 79 % High 47 - 75 % [place] Segs Absolute 10.70 High [place] WBC (Bld) [#/Vol] 13.6 10*3/uL [place] WBC (Bld) [#/Vol] NOT REPORTED per 100 WBC [place] WBC Morphology NOT REPORTED [place], [place] COVID-19, PCRon 03-26-2020 SARS-CoV-2, Rapid Not Detected Not Detected [place] Comment on above: Rapid NAAT: The [...] management decisions. Fact sheet for Healthcare Providers: https://www.fda.gov/media/423988/download Fact sheet for Patients: https://www.fda.gov/media/774606/download Methodology: Isothermal Nucleic Acid Amplification Source .THROAT [place] Comprehensive Metabolic Pane l w/ Reflex to MGon 03-26-2020 Albumin [Mass/Vol] 3.3 g/dL Low 3.5 - 5.2 g/dL [place] Albumin/Globulin [Mass ratio] NOT REPORTED [place] ALP [Catalytic activity/Vol] 57 U/L 35 - 104 U/L [place] ALT [Catalytic activity/Vol] U/L Low 5 - 33 U/L [place] Anion gap [Moles/Vol] 11 mmol/L 9 - 17 mmol/L [place] AST [Catalytic activity/Vol] 9 U/L <32 [place] Bilirubin Ql (U) 0.10 mg/dL Low 0.3 - 1.2 mg/dL [place] Bun/Cre Ratio 21 High [place] Calcium [Mass/Vol] 10.2 mg/dL 8.6 - 10. 4 mg/dL [place] Chloride [Moles/Vol] 104 mmol/L 98 - 10 7 mmol/L [place] CO2 [Moles/Vol] 21 mmol/L 20 - 31 mmol/L [place] Creatinine [Mass/Vol] 0.42 mg/dL Low 0.5 - 0.9 mg/dL [place] GFR >60 >60 mL/min [place] GFR Non- >60 >60 mL/min [place] GFR/1.73 sq M predicted among non-blacks MDRD (S/P/Bld) [Vol rate/Area] NOT REPORTED [place] GFR/1.73 sq M predicted among non-blacks MDRD (S/P/Bld) [Vol rate/Area] [place] Comment on above: Average GFR for 30-3 9 years old: 107 mL/min/1.73sq m Chronic Kidney Disease: <60 mL/min/1.73sq m Kidney failure: <15 mL/min/1.73sq m eGFR calculated using average adult body mass. Additional eGFR calculator available at: http://www.Be[employer] Mill/multiple_crcl_2012.htm Glucose [Mass/Vol] 100 mg/dL High 70 - 99 mg/dL [place] Interpretation and review of laboratory results Abnormal [place] Potassium [Moles/Vol] 3.8 mmol/L 3.7 - 5.3 mmol/L [place] Protein [Mass/Vol] 6.5 g/dL 6.4 - 8.3 g/dL [place] Sodium [Moles/Vol] 136 mmol/L 135 - 144 mmol/L [place] Urea nitrogen [Mass/Vol] 9 mg/dL 6 - 20 mg/dL [place] Otheron 03-26-2020 SARS-CoV-2 [place] Immature granulocytes (Bld) [#/Vol] NOT REPORTED [place] Urinalysis, reflex to micros copicon 03-26-2020 Bilirubin U[facility] [place] Color, UA YELLOW YELLOW [place] Glucose, Ur Negative NEGATIVE [place] Ketones Ql (U) Negative NEGATIVE [place] Leukocyte esterase Test strip Ql (U) Negative NEGATIVE [place] Nitrite, Urine Negative NEGATIVE [place] pH, UA 7.0 [place] Protein (U) [Mass/Vol] Negative NEGATIVE [place], [place] Specific [place], UA 1.010 [place], [place] Turbidity UA CLEAR CLEAR [place] Urinalysis Comments [place] Urine Hgb Negative NEGATIVE [place] Urobilinogen, Urine Normal Normal [place] Wet Prep, Genitalon 11-20-19 Direct Exam MODERATE EPITHELIAL CELLS Abnormal [place] Direct Exam FEW TRICHOMONAS SEEN Abnormal [place] Direct Exam MODERATE BACTERIA Abnormal [place] Direct Exam Few epithelials coated with bacteria resembling clue cells. Abnormal [place] Direct Exam NO FUNGAL ELEMENTS SEEN [place] Interpretation and review of laboratory results Abnormal [place] Special Requests NOT REPORTED [place] Specimen Description .VAGINAL SPECIMEN [place] WBC (Bld) [#/Vol] FEW WBC SEEN Abnormal [place] Basic Metabolic Panelon 06-05 Anion gap [Moles/Vol] 15 mmol/L 10 - 2 0 mmol/L [facility] Calcium [Mass/Vol] 8.6 mg/dL 8.4 - 10. 2 mg/dL [facility] Chloride [Moles/Vol] 102 mmol/L 98 - 10 8 mmol/L [facility] Creatinine [Mass/Vol] 0.36 mg/dL Low 0.40 - 1.10 [facility] GFR/1.73 sq M predicted among non-blacks MDRD (S/P/Bld) [Vol rate/Area] The eGFR should be used for monitoring renal function only and not for medication dosing. [facility] GFR/1.73 sq M.predicted CKD-EPI (S/P/Bld) [Vol rate/Area] 146 >=60 mL/min/1.73 m2 [facility] Glucose [Mass/Vol] 102 mg/dL High 65 - 99 mg/dL [facility] HCO3 [Moles/Vol] 25 mmol/L 21 - 32 mmol/L [facility] Interpretation and review of laboratory results Abnormal [facility] Potassium [Moles/Vol] 4.1 mmol/L 3.5 - 5.1 mmol/L [facility] Sodium [Moles/Vol] 138 mmol/L 135 - 145 mmol/L [facility] Urea nitrogen [Mass/Vol] 5 mg/dL Low 8 - 25 mg/dL [facility] Urea nitrogen/Creatinine [Mass ratio] 13.9 mg/mg [facility] Hepatic Function Panelon Albumin [Mass/Vol] 3.3 g/dL 3.2 - 5.2 g/dL [facility] ALP [Catalytic activity/Vol] 253 U/L High 40 - 140 U/L [facility] ALT [Catalytic activity/Vol] 686 U/L High 0 - 40 U/L [facility] AST [Catalytic activity/Vol] 349 U/L High 0 - 45 U/L [facility] Bilirubin [Mass/Vol] 6.0 mg/dL High 0 - 1.3 mg/dL [facility] Bilirubin.conjugated [Mass/Vol] 5.1 mg/dL High 0 - 0.4 mg/dL [facility] Interpretation and review of laboratory results Abnormal [facility] Protein [Mass/Vol] 6.8 g/dL 6 - 8 g/dL [facility] alth Bilirubin, Directon 06-16-19 20 Bilirubin.conjugated [Mass/Vol] 5.4 mg/dL High 0 - 0.4 mg/dL [facility] Interpretation and review of laboratory results Abnormal [facility] CBCon 06-16-2019 Erythrocyte distribution width (RBC) [Entitic vol] 15.1 % High 11.6 - 14.8 % [facility] Hematocrit (Bld) [Volume fraction] 38.5 % 36 - 46 % [facility] Hemoglobin (Bld) [Mass/Vol] 12.9 g/dL 12 - 16 g/dL [facility] Interpretation and review of laboratory results Abnormal [facility] MCH (RBC) [Entitic mass] 29.1 pg 26 - 34 pg [facility] MCHC (RBC) [Mass/Vol] 33.5 g/dL 31 - 3 7 g/dL [facility] MCV (RBC) [Entitic vol] 86.9 fL 80 - 100 fL [facility] Nucleated RBC (Bld) [#/Vol] 0.00 10*3/uL [facility] Nucleated RBC/100 WBC (Bld) [Ratio] 0.0 % [facility] Platelet mean volume (Bld) [Entitic vol] 11.3 fL 9 - 15.5 fL [facility] Platelets (Bld) [#/Vol] 185 10*3/uL [facility] RBC (Bld) [#/Vol] 4.43 10*6/uL [facility] WBC (Bld) [#/Vol] 6.48 10*3/uL [facility] Comprehensive Metabolic Pane cayden 06-16-2019 Albumin [Mass/Vol] 3.3 g/dL 3.2 - 5.2 g/dL [facility] ALP [Catalytic activity/Vol] 217 U/L High 40 - 140 U/L [facility] ALT [Catalytic activity/Vol] 825 U/L High 0 - 40 U/L [facility] Anion gap [Moles/Vol] 14 mmol/L 10 - 2 0 mmol/L [facility] AST [Catalytic activity/Vol] 544 U/L High 0 - 45 U/L [facility] Bilirubin [Mass/Vol] 5.9 mg/dL High 0 - 1.3 mg/dL [facility] Calcium [Mass/Vol] 8.4 mg/dL 8.4 - 10. 2 mg/dL [facility] Chloride [Moles/Vol] 103 mmol/L 98 - 10 8 mmol/L [facility] Creatinine [Mass/Vol] 0.32 mg/dL Low 0.40 - 1.10 [facility] GFR/1.73 sq M predicted among non-blacks MDRD (S/P/Bld) [Vol rate/Area] The eGFR should be used for monitoring renal function only and not for medication dosing. [facility] GFR/1.73 sq M.predicted CKD-EPI (S/P/Bld) [Vol rate/Area] 152 >=60 mL/min/1.73 m2 [facility] Glucose [Mass/Vol] 92 mg/dL 65 - 99 mg/dL [facility] HCO3 [Moles/Vol] 26 mmol/L 21 - 32 mmol/L [facility] Interpretation and review of laboratory results Abnormal [facility] Potassium [Moles/Vol] 4.3 mmol/L 3.5 - 5.1 mmol/L [facility] Protein [Mass/Vol] 6.2 g/dL 6 - 8 g/dL [facility] alth Sodium [Moles/Vol] 139 mmol/L 135 - 145 mmol/L [facility] Urea nitrogen [Mass/Vol] 4 mg/dL Low 8 - 25 mg/dL [facility] Urea nitrogen/Creatinine [Mass ratio] 12.5 mg/mg [facility] Bilirubin, Directon 06-15-19 20 Bilirubin.conjugated [Mass/Vol] 4.7 mg/dL High 0 - 0.4 mg/dL [facility] Interpretation and review of laboratory results Abnormal [facility] CBCon 06-15-2019 Erythrocyte distribution width (RBC) [Entitic vol] 14.8 % 11.6 - 14.8 % [facility] Hematocrit (Bld) [Volume fraction] 38.5 % 36 - 46 % [facility] Hemoglobin (Bld) [Mass/Vol] 12.6 g/dL 12 - 16 g/dL [facility] MCH (RBC) [Entitic mass] 29.0 pg 26 - 34 pg [facility] MCHC (RBC) [Mass/Vol] 32.7 g/dL 31 - 3 7 g/dL [facility] MCV (RBC) [Entitic vol] 88.5 fL 80 - 100 fL [facility] Nucleated RBC (Bld) [#/Vol] 0.00 10*3/uL [facility] Nucleated RBC/100 WBC (Bld) [Ratio] 0.0 % [facility] Platelet mean volume (Bld) [Entitic vol] 11.0 fL 9 - 15.5 fL [facility] Platelets (Bld) [#/Vol] 155 10*3/uL [facility] RBC (Bld) [#/Vol] 4.35 10*6/uL [facility] WBC (Bld) [#/Vol] 5.74 10*3/uL [facility] Comprehensive Metabolic Pane cayden 06-15-2019 Albumin [Mass/Vol] 3.2 g/dL 3.2 - 5.2 g/dL [facility] ALP [Catalytic activity/Vol] 193 U/L High 40 - 140 U/L [facility] ALT [Catalytic activity/Vol] 888 U/L High 0 - 40 U/L [facility] Anion gap [Moles/Vol] 15 mmol/L 10 - 2 0 mmol/L [facility] AST [Catalytic activity/Vol] 667 U/L High 0 - 45 U/L [facility] Bilirubin [Mass/Vol] 5.2 mg/dL High 0 - 1.3 mg/dL [facility] Calcium [Mass/Vol] 8.2 mg/dL Low 8.4 - 10. 2 mg/dL [facility] Chloride [Moles/Vol] 103 mmol/L 98 - 10 8 mmol/L [facility] Creatinine [Mass/Vol] 0.36 mg/dL Low 0.40 - 1.10 [facility] GFR/1.73 sq M predicted among non-blacks MDRD (S/P/Bld) [Vol rate/Area] The eGFR should be used for monitoring renal function only and not for medication dosing. [facility] GFR/1.73 sq M.predicted CKD-EPI (S/P/Bld) [Vol rate/Area] 146 >=60 mL/min/1.73 m2 [facility] Glucose [Mass/Vol] 122 mg/dL High 65 - 99 mg/dL [facility] HCO3 [Moles/Vol] 22 mmol/L 21 - 32 mmol/L [facility] Interpretation and review of laboratory results Abnormal [facility] Potassium [Moles/Vol] 3.8 mmol/L 3.5 - 5.1 mmol/L [facility] Protein [Mass/Vol] 5.8 g/dL Low 6 - 8 g/dL [facility] alth Sodium [Moles/Vol] 136 mmol/L 135 - 145 mmol/L [facility] Urea nitrogen [Mass/Vol] 5 mg/dL Low 8 - 25 mg/dL [facility] Urea nitrogen/Creatinine [Mass ratio] 13.9 mg/mg [facility] NM HEPATOBILIARY WO EJECTION FRACTIONon 06-15-2019 EXAMINATION: [...] tree, and small bowel are not visualized. [facility] Opacified liver with no visualization of the [...] regarding the presence or absence of cholecystitis. [employer] Workstation ID: [id number] [facility] Interface, Rad In [employer] Speech[employer] - 06/15/2019 [...] regarding the presence or absence of cholecystitis. [employer] Work[employer] ID: [id number] [facility] APTTon 06-14-2019 aPTT Coag (Bld) [Time] 31.1 s [facility] [place] Comment on above: PTT Therapeutic Range: 61.7-88.4 Therapeutic range corresponds to plasma heparin levels of 0.3-0.7 U/mL. Acetaminophen Levelon 2019 Acetaminophen [Mass/Vol] 9.1 [facility] Interpretation and review of laboratory results Normal [facility] Bilirubin, Directon 06-14-19 20 Bilirubin.conjugated [Mass/Vol] 4.3 mg/dL High 0 - 0.4 mg/dL [facility] Interpretation and review of laboratory results Abnormal [facility] CBC WITH AUTO DIFFERENTIALon 06-14-2019 Erythrocyte distribution width (RBC) [Entitic vol] 14.5 % 11.6 - 14.8 % [facility] Hematocrit (Bld) [Volume fraction] 34.6 % Low 36 - 46 % [facility] Hemoglobin (Bld) [Mass/Vol] 11.6 g/dL Low 12 - 16 g/dL [facility] Interpretation and review of laboratory results Abnormal [facility] MCH (RBC) [Entitic mass] 29.7 pg 26 - 34 pg [facility] MCHC (RBC) [Mass/Vol] 33.5 g/dL 31 - 3 7 g/dL [facility] MCV (RBC) [Entitic vol] 88.5 fL 80 - 100 fL [facility] Nucleated RBC (Bld) [#/Vol] 0.00 10*3/uL [facility] Nucleated RBC/100 WBC (Bld) [Ratio] 0.0 % [facility] Platelet mean volume (Bld) [Entitic vol] 10.8 fL 9 - 15.5 fL [facility] Platelets (Bld) [#/Vol] 172 10*3/uL [facility] RBC (Bld) [#/Vol] 3.91 10*6/uL Low [facility] ealth WBC (Bld) [#/Vol] 7.28 10*3/uL [facility] ealth CT ABDOMEN PELVIS W IV CONTR AST Additional Contrast? Noneon 06-14-2019 Ward, pn Incoming Radiant Results From [employer] - 06/14/2019 12:27 AM EDT EXAMINATION: CT [...] liver function panel and consider ultrasound imaging. [place] Pericholecystic fluid versus gallbladder wall thickening and additional periportal edema. There are no visualized stones in the gallbladder gallbladder and/or hepatic pathology are suspected. Correlate with liver function panel and consider ultrasound imaging. [place] EXAMINATION: CT ABDOMEN PELVIS W IV [...] structures demonstrate no acute or concerning abnormality. [facility] [place] COMPARISON IMPORTon 06-13 This order has been auto-finalized and does not contain a result. [facility] Comprehensive Metabolic Pane cayden 06-14-2019 Albumin [Mass/Vol] 3.0 g/dL Low 3.2 - 5.2 g/dL [facility] ALP [Catalytic activity/Vol] 183 U/L High 40 - 140 U/L [facility] ALT [Catalytic activity/Vol] 808 U/L High 0 - 40 U/L [facility] Anion gap [Moles/Vol] 16 mmol/L 10 - 2 0 mmol/L [facility] AST [Catalytic activity/Vol] 592 U/L High 0 - 45 U/L [facility] Bilirubin [Mass/Vol] 4.9 mg/dL High 0 - 1.3 mg/dL [facility] Calcium [Mass/Vol] 8.4 mg/dL 8.4 - 10. 2 mg/dL [facility] Chloride [Moles/Vol] 104 mmol/L 98 - 10 8 mmol/L [facility] Creatinine [Mass/Vol] 0.43 mg/dL 0.40 - 1.10 [facility] GFR/1.73 sq M predicted among non-blacks MDRD (S/P/Bld) [Vol rate/Area] The eGFR should be used for monitoring renal function only and not for medication dosing. [facility] GFR/1.73 sq M.predicted CKD-EPI (S/P/Bld) [Vol rate/Area] 138 >=60 mL/min/1.73 m2 [facility] Glucose [Mass/Vol] 79 mg/dL 65 - 99 mg/dL [facility] HCO3 [Moles/Vol] 21 mmol/L 21 - 32 mmol/L [facility] Interpretation and review of laboratory results Abnormal [facility] Potassium [Moles/Vol] 3.8 mmol/L 3.5 - 5.1 mmol/L [facility] Protein [Mass/Vol] 5.7 g/dL Low 6 - 8 g/dL [facility] alth Sodium [Moles/Vol] 137 mmol/L 135 - 145 mmol/L [facility] Urea nitrogen [Mass/Vol] 9 mg/dL 8 - 25 mg/dL [facility] Urea nitrogen/Creatinine [Mass ratio] 20.9 mg/mg High [facility] DRUGS OF ABUSE SCREEN, URINE on 06-14-2019 Amphetamines Ql (U) None Detected None Detected [facility] Comment on above: Urine Amphetamine Cu toff: < 1000 ng/mL = None Detected Barbiturates Screen Ql (U) None Detected None Detected [facility] Comment on above: Urine Barbiturates C utoff: < 200 ng/mL = None Detected Benzodiazepines Ql (U) None Detected None Detected [facility] Comment on above: Urine Benzodiazepine Cutoff: < 300 ng/mL = None Detected Cannabinoids Screen Ql (U) None Detected None Detected [facility] Comment on above: Urine Cannabinoids C utoff: < 50 ng/mL = None Detected Cocaine Ql (U) Positive Abnormal None Detected [facility] Comment on above: Urine Cocaine Cutoff : < 300 ng/mL = None Detected Interpretation and review of laboratory results Abnormal [facility] Methadone Screen Ql (U) None Detected Non e Detected [facility] Comment on above: Urine Methadone Cuto ff: < 300 ng/mL = None Detected Opiates Screen Ql (U) None Detected None Detected [facility] Comment on above: Urine Opiates Cutoff : < 300 ng/mL = None Detected Oxycodone Ql (U) None Detected None Detected [facility] Comment on above: Urine Oxycodone Cuto ff: < 100 ng/mL = None Detected Screen results should be used for treatment purposes only. Specimen will be kept for 2 weeks, if the sample is adequate. Confirmation testing can be initiated by calling the lab within 2 weeks. [facility] HEPATITIS PANEL, ACUTEon HAV IgM Ql (S) Negative Negative [facility] HBV core IgM Ql (S) Negative Negative [facility] HBV surface Ag Ql (S) Negative Negative [facility] HCV Ab Ql (S) Positive Abnormal Negative [facility] Comment on above: A positive antibody test requires additional follow-up testing, Hepatitis C Virus Quantitation, to determine if a person is currently infected with Hepatitis C. Interpretation and review of laboratory results Abnormal [facility] Test performed using [employer] DEVIKA immunoassay system [facility] Lactic Acid, Plasmaon 2019 Interpretation and review of laboratory results Normal [facility] Lactate [Moles/Vol] 0.8 mmol/L 0.6 - 2 mmol/L [facility] MORPHOLOGYon 06-14-2019 Platelets LM Ql (Bld) Normal Normal [facility] RBC morphology finding Nom (Bld) Normal [facility] MR MRCPon 06-14-2019 EXAMINATION: MR MRCP 03/15/2024 [...] Axial T1-weighted images were obtained in- and [id number]. Axial diffusion-weighted imaging was also performed. FINDINGS: The liver overall appears enlarged with the right hepatic lobe measuring 22.6 cm [id number] r. The spleen measures 14.6 cm [id number] r and is also mildly enlarged. There [...] the right kidney. Bowel pattern is nonobstructive. [facility] 1. Re-demonstration of diffuse periportal edema as well as significant circumferential gallbladder wall edema similar to that seen on prior CT study. 2. Mild hepatosplenomegaly. 3. No obvious gallstones. Negative for biliary or pancreatic ductal dilatation. Negative for choledocholithiasis . 4. Trace volume of abdominal ascites. Blip/T-ZONE Workstation ID: [id number] [facility] Interface, Rad In Asif Chavis - 06/14/2019 4:45 PM EDT EXAMINATION: MR [...] Axial T1-weighted images were obtained in- and [id number]. Axial diffusion-weighted imaging was also performed. FINDINGS: The liver overall appears enlarged with the right hepatic lobe measuring 22.6 cm kzrpfvne-mw-kfmtgia r. The spleen measures 14.6 cm patrzjui-jh-dxegxhe r and is also mildly enlarged. There [...] . 4. Trace volume of abdominal ascites. Blip/T-ZONE Workstation ID: [id number] [facility] Manual Differentialon 2019 Basophils (Bld) [#/Vol] 0.00 10*3/uL [facility] Basophils/100 WBC (Bld) 0.0 % [facility] Eosinophils (Bld) [#/Vol] 0.00 10*3/uL [facility] Eosinophils/100 WBC (Bld) 0.0 % [facility] Lymphocytes (Bld) [#/Vol] 3.28 10*3/uL [facility] Lymphocytes/100 WBC (Bld) 37.0 % [facility] Monocytes (Bld) [#/Vol] 0.44 10*3/uL [facility] Monocytes/100 WBC (Bld) 6.0 % [facility] Neutroph[facility] (Bld) [#/Vol] 3.57 10*3/uL [facility] Neutrophils/100 WBC (Bld) 49.0 % [facility] Variant lymphocytes/100 WBC (Bld) 8.0 % [facility] PT/INRon 06-14-2019 INR Coag (PPP) [Relative time] 1.3 {INR} [facility] Interpretation and review of laboratory results Abnormal [facility] PT Coag (PPP) [Time] 15.5 s [facility] During the induction phase of oral anticoagulation, the INR may not reflect the anticoagulation status of the patient. Therapeutic ranges for INR's are: Most clinical situations: INR 2.0-3.0 Mechanical Prosthetic Valve: INR 2.5-3.5 Critical: INR >5.0 [facility] Protime-INRon 06-14-2019 INR Coag (PPP) [Relative time] 1.2 {INR} [facility] [place] Comment on above: * THERAPY INDICATIONS * REFERENCE RANGES Pts not on anti-coagulants 1.0 - 1.5 INR Low risk pts on anti-coagulants 2.0 - 3.0 INR High risk pts on anti-coagulants 2.5 - 3.5 INR Prevention of atrial thrombo-embolism 3.0 - 4.5 INR Interpretation and review of laboratory results Abnormal [facility] [place] [place] PT Coag (PPP) [Time] 11.7 s [facility] [place], [place] Salicylate Levelon 0 Interpretation and review of laboratory results Abnormal [facility] Salicylates [Mass/Vol] mg/dL Low 10 - 20 mg/dL [facility] URINALYSISon 06-14-2019 Bacteria Auto Ql (U) Rare Abnormal None Se en /hpf [facility] Bilirubin Ql (U) Positive Abnormal Negative [facility] Comment on above: False positive urine bilirubins can occur in the setting of a large amount of hemoglobin and secondary to medications including anti-inflammatory agents, rifampin, and pyridium. Clarity Refractometry automated (U) Clear Clear [facility] Color (U) Erica Abnormal Colorless, Yellow [facility] Epithelial cells.squamous Auto (Urine sed) [#/Area] 4 [facility] alth Glucose Auto test strip (U) [Mass/Vol] Negative Negative mg/dL [facility] Hemoglobin Auto test strip Ql (U) Negative Negative [facility] Interpretation and review of laboratory results Abnormal [facility] Ketones (U) [Mass/Vol] >=80 Abnormal Negat krystal mg/dL [facility] Leukocyte esterase Auto test strip Ql (U) Negative Negative [facility] Mucus Auto (Urine sed) [#/Area] Rare None Seen, Rare /lpf [facility] Nitrite Auto test strip Ql (U) Negative Negative [facility] pH (U) 6.0 [pH] [facility] Protein (U) [Mass/Vol] 30 Abnormal Negat krystal mg/dL [facility] Comment on above: False positive resul ts may occur in urines with large amounts of hemoglobin, pH greater than 8.0, contrast medium, or disinfectants including ammonium compounds. RBC Auto (Urine sed) [#/Area] 2 [facility] Specific gravity (U) [Rel density] 1.028 High [facility] Urobilinogen (U) [Mass/Vol] >=4.0 Abnormal <2.0 mg/dL [facility] WBC Auto (Urine sed) [#/Area] 2 [facility] Microscopic examination is performed on all urinalysis samples and only positive findings are reported. The test for blood on the chemical analytic portion of urinalysis may also be positive due to hemoglobinuria and myoglobinuria and if red blood cells are present they are quantified by microscopic examination. [facility] US ABDOMEN LIMITED STUDYon 0 06-14-2019 Interface, [...] liver likely small hemangioma. Workstation ID: [id number] [employer] EXAMINATION: US ABDOMEN LIMITED STUDY HISTORY: RUQ [...] measures 10.7 cm in length. No hydronephrosis. [facility] 1. Contracted gallbladder limits evaluation. No cholelithiasis identified. Nonspecific edematous gallbladder wall thickening and reported positive sonographic Short's sign, cannot exclude acalculus cholecystitis. No biliary ductal dilatation. 2. 1.3 cm echogenic lesion left lobe of the liver likely small hemangioma. Workstation ID: [id number] [facility] Amylaseon 06-13-2019 Amylase [Catalytic activity/Vol] 22 U/L Low 28 - 100 U/L [place] CBC Auto Differentialon Basophils (Bld) [#/Vol] 0.00 10*3/uL [place] Basophils/100 WBC (Bld) 1 % 0 - 2 % [place] Differential Type YES [place] Eosinophils (Bld) [#/Vol] 0.00 10*3/uL [place] Eosinophils/100 WBC (Bld) 0 % 0 - 5 % [place] Erythrocyte distribution width (RBC) [Ratio] 14.9 % 12.1 - 15.2 % [place] Hematocrit (Bld) [Volume fraction] 43.3 % 36 - 46 % [place] Hemoglobin (Bld) [Mass/Vol] 14.3 g/dL 12 - 16 g/dL [place] Lymphocytes (Bld) [#/Vol] 2.50 10*3/uL [place] Lymphocytes/100 WBC (Bld) 30 % 15 - 40 % [place] MCH (RBC) [Entitic mass] 28.8 pg 26 - 34 pg [place] MCHC (RBC) [Mass/Vol] 33.1 g/dL 31 - 3 7 g/dL [place] MCV (RBC) [Entitic vol] 87.2 fL 80 - 100 fL [place] Monocytes (Bld) [#/Vol] 0.70 10*3/uL [place] Monocytes/100 WBC (Bld) 8 % 4 - 8 % [place] Platelet mean volume (Bld) [Entitic vol] NOT REPORTED 6 - 12 fL [place] Platelets (Bld) [#/Vol] 203 10*3/uL [place] Platelets (Bld) [#/Vol] NOT REPORTED [place] RBC (Bld) [#/Vol] 4.97 10*6/uL 4 - 5.2 m/uL [place] RBC morphology finding Nom (Bld) NOT REPORTED [place] Segmented neutrophils/100 WBC (Bld) 61 % 47 - 75 % [place] Segs Absolute 5.20 [place] WBC (Bld) [#/Vol] 8.4 10*3/uL [place] WBC (Bld) [#/Vol] NOT REPORTED per 100 WBC [place] WBC Morphology NOT REPORTED [place] Comprehensive Metabolic Pane l w/ Reflex to MGon 06-13-2019 Albumin [Mass/Vol] 4.1 g/dL 3.5 - 5.2 g/dL [place] Albumin/Globulin [Mass ratio] NOT REPORTED [place] ALP [Catalytic activity/Vol] 255 U/L High 35 - 104 U/L [place] ALT [Catalytic activity/Vol] 1116 U/L High 5 - 33 U/L [place] Anion gap [Moles/Vol] 17 mmol/L 9 - 17 mmol/L [place] AST [Catalytic activity/Vol] 665 U/L High <32 [place] Bilirubin Ql (U) 6.52 mg/dL High 0.3 - 1.2 mg/dL [place] Bun/Cre Ratio 17 [place] Calcium [Mass/Vol] 10.1 mg/dL 8.6 - 10. 4 mg/dL [place] Chloride [Moles/Vol] 95 mmol/L Low 98 - 10 7 mmol/L [place] CO2 [Moles/Vol] 24 mmol/L 20 - 31 mmol/L [place] Creatinine [Mass/Vol] 0.82 mg/dL 0.5 - 0.9 mg/dL [place] GFR >60 >60 mL/min [place] GFR Non- >60 >60 mL/min [place] GFR/1.73 sq M predicted among non-blacks MDRD (S/P/Bld) [Vol rate/Area] [place] Comment on above: Average GFR for 20-2 9 years old: 116 mL/min/1.73sq m Chronic Kidney Disease: <60 mL/min/1.73sq m Kidney failure: <15 mL/min/1.73sq m eGFR calculated using average adult body mass. Additional eGFR calculator available at: http://www.[employer]elliworks/multiple_crcl_2012.htm GFR/1.73 sq M predicted among non-blacks MDRD (S/P/Bld) [Vol rate/Area] NOT REPORTED [place] Glucose [Mass/Vol] 134 mg/dL High 70 - 99 mg/dL [place] Interpretation and review of laboratory results Abnormal [place] Potassium [Moles/Vol] 3.7 mmol/L 3.7 - 5.3 mmol/L [place] Protein [Mass/Vol] 8.1 g/dL 6.4 - 8.3 g/dL [place] Sodium [Moles/Vol] 136 mmol/L 135 - 144 mmol/L [place] Urea nitrogen [Mass/Vol] 14 mg/dL 6 - 20 mg/dL [place] Drug screen multi urineon Amphetamine Screen, Ur Negative NEGATIVE [place] Comment on above: (Positive cutoff 500 ng/mL) Barbiturate Screen, Ur Negative NEGATIVE [place] Comment on above: (Positive cutoff 200 ng/mL) Benzodiazepine Screen, Urine Negative NEGATIVE [place] Comment on above: (Positive cutoff 150 ng/mL) Buprenorphine Urine NOT REPORTED NEGATIVE [place] Cannabinoid Scrn, Ur Negative NEGATIVE [place] Comment on above: (Positive cutoff 50 ng/mL) Cocaine Metabolite, Urine Positive Abnormal NEGATIVE [place] Comment on above: (Positive cutoff 150 ng/mL) Interpretation and review of laboratory results Abnormal [place] MDMA, Urine NOT REPORTED NEGATIVE [place] Methadone Screen, Urine Negative NEGATIVE [place] Comment on above: (Positive cutoff 200 ng/mL) Methamphetamine, Urine Negative NEGATIVE [place] Comment on above: (Positive cutoff 500 ng/mL) Opiates, Urine Positive Abnormal NEGATIVE [place] Comment on above: (Positive cutoff 100 ng/mL) Oxycodone Screen, Ur Negative NEGATIVE [place] Comment on above: (Positive cutoff 100 ng/mL) Phencyclidine, Urine Negative NEGATIVE [place] Comment on above: (Positive cutoff 25 ng/mL) Propoxyphene, Urine Negative NEGATIVE [place] Comment on above: (Positive cutoff 300 ng/mL) Test Information NOT REPORTED [place] Tricyclic Antidepressants, Urine Negative NEGATIVE [place] Comment on above: (Positive cutoff 300 ng/mL) Drug screen results are to be used for medical purposes only. All positive results are unconfirmed. Testing for employment or legal uses should be sent to a reference laboratory for confirmation. Lactic Acidon 06-13-2019 Lactate [Moles/Vol] 1.2 mmol/L 0.5 - 2. 2 mmol/L [place] Lipaseon 06-13-2019 Lipase [Catalytic activity/Vol] 8 U/L Low 13 - 60 U/L [place] Microscopic Urinalysison Amorphous, UA NOT REPORTED None [place] Bacteria, UA 2+ Abnormal None [place] Casts UA 5 TO 10 HYALINE /LPF [place] Casts UA 2 TO 5 WAXY /LPF [place] Crystals, UA NOT REPORTED None /HPF [place] Epithelial Cells UA LOADED /HPF [place] Interpretation and review of laboratory results Abnormal [place] Mucus, UA 4+ Abnormal [place] Other Observations UA NOT REPORTED NOT REQ. [place] RBC (U) [#/Vol] 5 TO 10 [place] Renal Epithelial, UA NOT REPORTED 0 /HPF [place] Trichomonas, UA NOT REPORTED None [place] WBC, UA 10 TO 20 0 /HPF [place] Yeast, UA NOT REPORTED None [place] - [place] Otheron 06-13-2019 Interpretation and review of laboratory results Abnormal [place] Immature granulocytes (Bld) [#/Vol] NOT REPORTED 0 % [place] , Urineon 0 Beta HCG ( test) Ql (U) Negative NEGATIVE [place] Urinalysis, reflex to micros copicon 06-13-2019 Bilirubin Urine 3+ Abnormal NEGATIVE [place] Color, UA BROWN Abnormal YELLOW [place] Glucose, Ur Negative NEGATIVE [place] Interpretation and review of laboratory results Abnormal [place] Ketones Ql (U) MODERATE Abnormal NEGATIVE [place] Leukocyte esterase Test strip Ql (U) 1+ Abnormal NEGATIVE [place] Nitrite, Urine Positive Abnormal NEGATIVE [place] pH, UA 5.0 [place] Protein (U) [Mass/Vol] 1+ Abnormal NEGATIVE [place] Specific [place], UA 1.020 [place] Turbidity UA CLEAR CLEAR [place] Urinalysis Comments [place] Urine Hgb TRACE Abnormal NEGATIVE [place] Urobilinogen, Urine 12 mg/dL Abnormal Normal [place] Vital Signs Date Time Vital Sign Value Performing Clinician Facility 10-05-2023 21:00-0400 Body temperature 99.61 [degF] Violet Juarez MD Work Phone: [facility] 10-05-2023 21:00-0400 Diastolic blood pressure 68 mm[Hg] Violet Juarez MD Work Phone: [facility] 10-05-2023 21:00-0400 Heart rate 93 /min Violet Juarez MD Work Phone: [facility] 10-05-2023 21:00-0400 Respiratory rate 16 /min Violet Juarez MD Work Phone: [facility] 10-05-2023 21:00-0400 SaO2% (BldA) [Mass fraction] 97 % Violet Juarez MD Work Phone: [facility] 10-05-2023 21:00-0400 Systolic blood pressure 114 mm[Hg] Violet Juarez MD Work Phone: [facility] 05-13-2023 11:27-0500 Body temperature 98.6 [degF] Jonathan Martinez [facility] 05-13-2023 11:27-0500 Diastolic blood pressure 78 mm[Hg] Jonathan Martinez [facility] 05-13-2023 11:27-0500 Heart rate 83 /min Jonathan Martinez [facility] 05-13-2023 11:27-0500 Respiratory rate 18 /min Jonathan Martinez [facility] 05-13-2023 11:27-0500 SaO2% (BldA) [Mass fraction] 97 % Jonathan Martinez [facility] 05-13-2023 11:27-0500 Systolic blood pressure 113 mm[Hg] Jonathan Martinez [facility] 05-11-2023 21:49-0500 Body temperature 98.06 [degF] [facility] 05-11-2023 21:49-0500 Diastolic blood pressure 84 mm[Hg] [facility] 05-11-2023 21:49-0500 Heart rate 105 /min [facility] 05-11-2023 21:49-0500 Respiratory rate 17 /min [facility] 05-11-2023 21:49-0500 SaO2% (BldA) [Mass fraction] 97 % [facility] 05-11-2023 21:49-0500 Systolic blood pressure 130 mm[Hg] Zac [facility] 05-10-2023 11:41-0500 Body height 160 cm Chet Berumen DO Work Phone: [employer] 05-10-2023 11:41-0500 Body mass index (BMI) [Ratio] 44.29 kg/m2 Chet Berumen Work Phone: [employer] 05-10-2023 11:41-0500 Body temperature 97.9 [degF] Chet Berumen DO Work Phone: [employer] 05-10-2023 11:41-0500 Body weight 113.4 kg Chet Berumen DO Work Phone: [employer] 05-10-2023 11:41-0500 Diastolic blood pressure 76 mm[Hg] Chet Berumen DO Work Phone: [employer] 05-10-2023 11:41-0500 Heart rate 94 /min Chet Berumen Work Phone: [employer] 05-10-2023 11:41-0500 Respiratory rate 18 /min Chet Berumen Work Phone: [employer] 05-10-2023 11:41-0500 SaO2% (BldA) [Mass fraction] 96 % Chet Berumen Work Phone: [employer] 05-10-2023 11:41-0500 Systolic blood pressure 146 mm[Hg] Chet Berumen DO Work Phone: [employer] 09-04-2022 11:27-0400 Body height 160 cm Erin Lacy MD Work Phone: [employer] 09-04-2022 11:27-0400 Body mass index (BMI) [Ratio] 44.99 kg/m2 Erin Lacy MD Work Phone: [employer] 09-04-2022 11:27-0400 Body temperature 98.2 [degF] Erin Lacy MD Work Phone: [employer] 09-04-2022 11:27-0400 Body weight 115.21 kg Erin Lacy MD Work Phone: [employer] 09-04-2022 11:27-0400 Diastolic blood pressure 71 mm[Hg] Erin Lacy MD Work Phone: [employer] 09-04-2022 11:27-0400 Heart rate 88 /min Erin Lacy MD Work Phone: [employer] 09-04-2022 11:27-0400 Respiratory rate 18 /min Erin Lacy MD Work Phone: [employer] 09-04-2022 11:27-0400 SaO2% (BldA) [Mass fraction] 97 % Erin Lacy MD Work Phone: [employer] 09-04-2022 11:27-0400 Systolic blood pressure 124 mm[Hg] Erin Lacy MD Work Phone: [employer] 06-29-2022 09:49-0400 Diastolic blood pressure 57 mm[Hg] Todd Bing [facility] 06-29-2022 09:49-0400 Heart rate 73 /min Todd Bing [facility] 06-29-2022 09:49-0400 Mean blood pressure 76 mm[Hg] Todd Bing [facility] 06-29-2022 09:49-0400 Respiratory rate 16 /min Todd Bing [facility] 06-29-2022 09:49-0400 Systolic blood pressure 113 mm[Hg] Todd Bing [facility] 05-19-2022 19:28-0400 Body height 160 cm Erin Lacy MD Work Phone: [employer] 05-19-2022 19:28-0400 Body mass index (BMI) [Ratio] 45.17 kg/m2 Erin Lacy MD Work Phone: [employer] 05-19-2022 19:28-0400 Body weight 115.67 kg Erin Lacy MD Work Phone: [employer] 05-19-2022 19:25-0400 Body temperature 98.29 [degF] Erin Lacy MD Work Phone: [employer] 05-19-2022 19:25-0400 Diastolic blood pressure 68 mm[Hg] Erin Lacy MD Work Phone: [employer] 05-19-2022 19:25-0400 Heart rate 78 /min Erin Lacy MD Work Phone: [employer] 05-19-2022 19:25-0400 Respiratory rate 16 /min Erin Lacy MD Work Phone: [employer] 05-19-2022 19:25-0400 SaO2% (BldA) [Mass fraction] 98 % Erin Lacy MD Work Phone: [employer] 05-19-2022 19:25-0400 Systolic blood pressure 110 mm[Hg] Erin Lacy MD Work Phone: [employer] 05-11-2022 19:17-0500 Body height 160 cm Anuj Quinn MD Work Phone: [employer] 05-11-2022 19:17-0500 Body mass index (BMI) [Ratio] 45.06 kg/m2 Anuj Quinn MD Work Phone: [employer] 05-11-2022 19:17-0500 Body temperature 98.01 [degF] Anuj Quinn MD Work Phone: [employer] 05-11-2022 19:17-0500 Body weight 115.39 kg Anuj Quinn MD Work Phone: [employer] 05-11-2022 19:17-0500 Diastolic blood pressure 91 mm[Hg] Anuj Quinn MD Work Phone: [facility] 05-11-2022 19:17-0500 Heart rate 78 /min Anuj Quinn MD Work Phone: [employer] 05-11-2022 19:17-0500 Respiratory rate 18 /min Anuj Quinn MD Work Phone: [employer] 05-11-2022 19:17-0500 SaO2% (BldA) [Mass fraction] 96 % Anuj Quinn MD Work Phone: [employer] 05-11-2022 19:17-0500 Systolic blood pressure 121 mm[Hg] Anuj Quinn MD Work Phone: [employer] 10-12-2021 18:31-0400 Heart rate 93 /min Rishabh Mancini MD Work Phone: [employer] 10-12-2021 18:31-0400 Respiratory rate 16 /min Rishabh Mancini MD Work Phone: [employer] 10-12-2021 18:31-0400 SaO2% (BldA) [Mass fraction] 97 % Rishabh Mancini MD Work Phone: [employer] 10-12-2021 18:12-0400 Body height 160 cm Rishabh Mancini MD Work Phone: [employer] 10-12-2021 18:12-0400 Body mass index (BMI) [Ratio] 47.12 kg/m2 Rishabh Mancini MD Work Phone: [employer] 10-12-2021 18:12-0400 Body temperature 99.19 [degF] Rishabh Mancini MD Work Phone: [employer] 10-12-2021 18:12-0400 Body weight 120.66 kg Rishabh Mancini MD Work Phone: [facility] [employer] 10-12-2021 18:12-0400 Diastolic blood pressure 77 mm[Hg] Rishab[facility]ini MD [facility] 10-12-2021 18:12-0400 Systolic blood pressure 126 mm[Hg] Rishabh [facility]ancini MD [facility] 07-22-2021 10:38-0400 Body height 160 cm Clark Moser MD Work Phone: [facility] [employer] 07-22-2021 10:38-0400 Body mass index (BMI) [Ratio] 47.63 kg/m2 Clark [facility] 07-22-2021 10:38-0400 Body temperature 97.3 [degF] Clark [facility]oser [facility] 07-22-2021 10:38-0400 Body weight 121.97 kg Clark [facility]oser [facility] 07-22-2021 10:38-0400 Diastolic blood pressure 88 mm[Hg] Clark [facility]oser [facility] 07-22-2021 10:38-0400 Heart rate 104 /min Clark [facility]oser [facility] 07-22-2021 10:38-0400 Respiratory rate 18 /min Clark [facility]oser [facility] 07-22-2021 10:38-0400 SaO2% (BldA) [Mass fraction] 95 % Clark [facility]oser [facility] 07-22-2021 10:38-0400 Systolic blood pressure 126 mm[Hg] Clark Moser MD Work Phone: [facility] [employer] 05-15-2021 09:11-0500 Body height 160 cm Angelito Harvey [facility] 05-14-2021 10:41-0500 Body height 160 cm Farhat Vang MD Work Phone: [facility] 05-14-2021 10:41-0500 Body mass index (BMI) [Ratio] 44.96 kg/m2 Farhat Vang MD Work Phone: [facility] 05-14-2021 10:41-0500 Body temperature 97.81 [degF] Farhat Vang MD Work Phone: [facility] 05-14-2021 10:41-0500 Body weight 115.12 kg Farhat Vang MD Work Phone: [facility] 05-14-2021 10:41-0500 Diastolic blood pressure 78 mm[Hg] Farhat Vang MD Work Phone: [facility] 05-14-2021 10:41-0500 Heart rate 98 /min Farhat Vang MD Work Phone: [facility] 05-14-2021 10:41-0500 Respiratory rate 18 /min Farhat Vang MD Work Phone: [facility] 05-14-2021 10:41-0500 SaO2% (BldA) [Mass fraction] 97 % Farhat Vang MD Work Phone: [facility] 05-14-2021 10:41-0500 Systolic blood pressure 124 mm[Hg] Farhat Vang MD Work Phone: [facility] 04-16-2021 10:15-0500 Body height 160 cm Farhat Vang MD Work Phone: [facility] 04-16-2021 10:15-0500 Body mass index (BMI) [Ratio] 44.44 kg/m2 Farhat Vang MD Work Phone: [facility] 04-16-2021 10:15-0500 Body temperature 98.01 [degF] Farhat Vang MD Work Phone: [facility] 04-16-2021 10:15-0500 Body weight 113.81 kg Farhat Vang MD Work Phone: [facility] 04-16-2021 10:15-0500 Diastolic blood pressure 78 mm[Hg] Farhat Vang MD Work Phone: [facility] 04-16-2021 10:15-0500 Heart rate 100 /min Farhat Vang MD Work Phone: [facility] 04-16-2021 10:15-0500 Respiratory rate 18 /min Farhat Vang MD Work Phone: [facility] 04-16-2021 10:15-0500 SaO2% (BldA) [Mass fraction] 96 % Farhat Vang MD Work Phone: [facility] 04-16-2021 10:15-0500 Systolic blood pressure 122 mm[Hg] Farhat Vang MD Work Phone: [facility] 03-23-2021 12:40-0500 Body height 160 cm Anuj Quinn MD Work Phone: [facility] [employer] 03-23-2021 12:40-0500 Body mass index (BMI) [Ratio] 44.46 kg/m2 Anuj Quinn MD Work Phone: [facility] [employer] 03-23-2021 12:40-0500 Body temperature 99.7 [degF] Anuj Quinn MD Work Phone: [facility] [employer] 03-23-2021 12:40-0500 Body weight 113.85 kg Anuj Quinn MD Work Phone: [facility] [employer] 03-23-2021 12:40-0500 Diastolic blood pressure 74 mm[Hg] Anuj Quinn MD Work Phone: [facility] [employer] 03-23-2021 12:40-0500 Heart rate 107 /min Anuj Quinn MD Work Phone: [facility] [employer] 03-23-2021 12:40-0500 Respiratory rate 16 /min Anuj Quinn MD Work Phone: [facility] [employer] 03-23-2021 12:40-0500 SaO2% (BldA) [Mass fraction] 96 % Anuj Quinn MD Work Phone: [facility] 03-23-2021 12:40-0500 Systolic blood pressure 131 mm[Hg] Anuj Quinn MD Work Phone: [facility] 01-15-2021 10:43-0500 Body height 160 cm Holland Ann MD Work Phone: [facility] 01-15-2021 10:43-0500 Body mass index (BMI) [Ratio] 42.55 kg/m2 Holland Ann MD Work Phone: [facility] 01-15-2021 10:43-0500 Body temperature 97.39 [degF] Holland Ann MD Work Phone: [facility] 01-15-2021 10:43-0500 Body weight 108.95 kg Holland Ann MD Work Phone: [facility] 01-15-2021 10:43-0500 Diastolic blood pressure 66 mm[Hg] Holland Ann MD Work Phone: [facility] 01-15-2021 10:43-0500 Heart rate 101 /min Holland Ann MD Work Phone: [facility] 01-15-2021 10:43-0500 SaO2% (BldA) [Mass fraction] 96 % Holland Ann MD Work Phone: [facility] 01-15-2021 10:43-0500 Systolic blood pressure 112 mm[Hg] Holland Ann MD Work Phone: [facility] 12-27-2020 18:15-0400 Body temperature 98.49 [degF] Wayne Springer MD Work Phone: [employer] Work Phone: 12-27-2020 18:15-0400 Diastolic blood pressure 77 mm[Hg] Wayne Springer MD Work Phone: [employer] Work Phone: Comment on above: Simultaneous filing. User may not have s een previous data. 12-27-2020 18:15-0400 Heart rate 98 /min Wayne Springer MD Work Phone: [employer] Work Phone: 12-27-2020 18:15-0400 Respiratory rate 20 /min Wayne Springer MD Work Phone: [employer] Work Phone: 12-27-2020 18:15-0400 SaO2% (BldA) [Mass fraction] 95 % Wayne Springer MD Work Phone: [employer] Work Phone: Comment on above: Simultaneous filing. User may not have s een previous data. 12-27-2020 18:15-0400 Systolic blood pressure 107 mm[Hg] Wayne Springer MD Work Phone: [employer] Work Phone: Comment on above: Simultaneous filing. User may not have s een previous data. 11-20-2020 21:07-0400 Body height 160 cm Anuj Quinn MD Work Phone: [employer] Work Phone: 11-20-2020 21:07-0400 Body mass index (BMI) [Ratio] 38.62 kg/m2 Anuj Quinn MD Work Phone: [employer] Work Phone: 11-20-2020 21:07-0400 Body temperature 98.6 [degF] Anuj Quinn MD Work Phone: [employer] Work Phone: 11-20-2020 21:07-0400 Body weight 98.88 kg Anuj Quinn MD Work Phone: [employer] Work Phone: 11-20-2020 21:07-0400 Diastolic blood pressure 65 mm[Hg] Anuj Quinn MD Work Phone: [employer] Work Phone: 11-20-2020 21:07-0400 Heart rate 84 /min Anuj Quinn MD Work Phone: [employer] Work Phone: 11-20-2020 21:07-0400 Respiratory rate 16 /min Anuj Quinn MD Work Phone: [employer] Work Phone: 11-20-2020 21:07-0400 SaO2% (BldA) [Mass fraction] 97 % Anuj Quinn MD Work Phone: [employer] Work Phone: 11-20-2020 21:07-0400 Systolic blood pressure 113 mm[Hg] Anuj Quinn MD Work Phone: [employer] Work Phone: 11-07-2020 16:28-0400 Body height 160 cm Nicholas Roger MD Work Phone: [employer] Work Phone: 11-07-2020 16:28-0400 Body mass index (BMI) [Ratio] 38.26 kg/m2 Nicholas Roger MD Work Phone: [employer] Work Phone: 11-07-2020 16:28-0400 Body temperature 98.8 [degF] Nicholas Roger MD Work Phone: [employer] Work Phone: 11-07-2020 16:28-0400 Body weight 97.98 kg Nicholas Roger MD Work Phone: [employer] Work Phone: 11-07-2020 16:28-0400 Diastolic blood pressure 71 mm[Hg] Nicholas Roger MD Work Phone: [employer] Work Phone: 11-07-2020 16:28-0400 Heart rate 98 /min Nicholas Roger MD Work Phone: [employer] Work Phone: 11-07-2020 16:28-0400 Respiratory rate 18 /min Nicholas Roger MD Work Phone: [employer] Work Phone: 11-07-2020 16:28-0400 SaO2% (BldA) [Mass fraction] 94 % Nicholas Roger MD Work Phone: [employer] Work Phone: 11-07-2020 16:28-0400 Systolic blood pressure 120 mm[Hg] Nicholas Roger MD Work Phone: [employer] Work Phone: 07-09-2020 10:52-0400 Body height 160 cm Zelda Bautista CNP Work Phone: [facility] 07-09-2020 10:52-0400 Body mass index (BMI) [Ratio] 41.27 kg/m2 Zelda Bautista CNP Work Phone: [facility] 07-09-2020 10:52-0400 Body weight 105.69 kg Zelda Bautista CNP Work Phone: [facility] 07-09-2020 10:52-0400 Diastolic blood pressure 70 mm[Hg] Zelda Bautista CNP Work Phone: [facility] 07-09-2020 10:52-0400 Heart rate 97 /min Zelda Bautista CNP Work Phone: [facility] 07-09-2020 10:52-0400 Systolic blood pressure 101 mm[Hg] Zelda Bautista CNP Work Phone: [facility] 06-24-2020 09:48-0400 Body mass index (BMI) [Ratio] 40.92 kg/m2 Anuj Quinn MD Work Phone: [employer] Work Phone: 06-24-2020 09:48-0400 Body temperature 97.9 [degF] Anuj Quinn MD Work Phone: [employer] Work Phone: 06-24-2020 09:48-0400 Body weight 104.78 kg Anuj Quinn MD Work Phone: [employer] Work Phone: 06-24-2020 09:48-0400 Diastolic blood pressure 64 mm[Hg] Anuj Quinn MD Work Phone: [employer] Work Phone: 06-24-2020 09:48-0400 Heart rate 120 /min Anuj Quinn MD Work Phone: [employer] Work Phone: 06-24-2020 09:48-0400 Respiratory rate 18 /min Anuj Quinn MD Work Phone: [employer] Work Phone: 06-24-2020 09:48-0400 SaO2% (BldA) [Mass fraction] 100 % Anuj Quinn MD Work Phone: [employer] Work Phone: 06-24-2020 09:48-0400 Systolic blood pressure 115 mm[Hg] Anuj Quinn MD Work Phone: [employer] Work Phone: 06-09-2020 10:44-0400 Body height 160 cm Lelo Gallegos MD Work Phone: [facility] 06-09-2020 10:44-0400 Body mass index (BMI) [Ratio] 41.27 kg/m2 Lelo Gallegos MD Work Phone: [facility] 06-09-2020 10:44-0400 Body weight 105.69 kg Lelo Gallegos MD Work Phone: [facility] 06-09-2020 10:44-0400 Diastolic blood pressure 75 mm[Hg] Lelo Gallegos MD Work Phone: [facility] 06-09-2020 10:44-0400 Heart rate 116 /min Lelo Gallegos MD Work Phone: [facility] 06-09-2020 10:44-0400 Systolic blood pressure 110 mm[Hg] Lelo Gallegos MD Work Phone: [facility] 03-26-2020 22:17-0500 Pulse (Heart Rate) 98 /min Brie Moreno [facility] 03-26-2020 21:43-0500 BP Diastolic 66 mm[Hg] [facility]rie [facility] [place] [facility] [place] 03-26-2020 21:43-0500 BP Systolic 99 mm[Hg] [facility] [place] 03-26-2020 21:43-0500 Pulse Oximetry 95 % [facility] [place] 03-26-2020 20:50-0500 Respiratory Rate 16 /min [facility] [place] 03-26-2020 20:13-0500 BMI (Body Mass Index) 40.14 kg/m2 [facility] [place] [place] 03-26-2020 20:13-0500 Body Temperature 98.2 [degF] [facility] [place] 03-26-2020 20:13-0500 Body weight 102.78 kg Brie Jorgensen [facility] [place] 02-15-2020 18:22-0500 BMI (Body Mass Index) 39.75 kg/m2 [facility]rie [facility] 02-15-2020 18:22-0500 Body Temperature 98.6 [degF] [facility] [place] 02-15-2020 18:22-0500 Body weight 101.79 kg Brie [facility]org[facility] [place] 02-15-2020 18:22-0500 BP Diastolic 78 mm[Hg] [facility] [place] 02-15-2020 18:22-0500 BP Systolic 127 mm[Hg] [facility] [place] [facility] [place] 02-15-2020 18:22-0500 Height 160 cm Brie Moreno [facility] [place] 02-15-2020 18:22-0500 Pulse (Heart Rate) 92 /min Brie Josh [facility] 02-15-2020 18:22-0500 Pulse Oximetry 99 % Brie Moreno [facility] [place] 02-15-2020 18:22-0500 Respiratory Rate 20 /min Brie Moreno [facility] 11-20-2019 18:48-0400 BP Diastolic 75 mm[Hg] [facility] 11-20-2019 18:48-0400 BP Systolic 128 mm[Hg] [facility] 11-20-2019 18:48-0400 Pulse (Heart Rate) 83 /min [facility] 11-20-2019 18:48-0400 Pulse Oximetry 97 % [facility] 11-20-2019 18:48-0400 Respiratory Rate 18 /min [facility] 11-20-2019 17:00-0400 BMI (Body Mass Index) 36.31 kg/m2 [facility] 11-20-2019 17:00-0400 Body Temperature 98.4 [degF] [facility] 11-20-2019 17:00-0400 Body weight 92.99 kg [facility] 11-03-2019 11:37-0400 BMI (Body Mass Index) 34.47 kg/m2 [facility] 11-03-2019 11:37-0400 Body Temperature 98.71 [degF] [facility] 11-03-2019 11:37-0400 Body weight 88.27 kg [facility] 11-03-2019 11:37-0400 BP Diastolic 66 mm[Hg] [facility] 11-03-2019 11:37-0400 BP Systolic 117 mm[Hg] [facility] 11-03-2019 11:37-0400 Height 160 cm [facility] [place] 11-03-2019 11:37-0400 Pulse (Heart Rate) 87 /min [place] 11-03-2019 11:37-0400 Pulse Oximetry 99 % [place] 11-03-2019 11:37-0400 Respiratory Rate 20 /min [place] 08-13-2019 19:42-0400 BMI (Body Mass Index) [...] Hospital 08-13-2019 19:40-0400 Pulse Oximetry 98 % [facility] 08-13-2019 19:40-0400 Respiratory Rate 16 /min [facility] 06-17-2019 12:45-0400 Respiratory Rate 18 /min [facility] 06-17-2019 07:54-0400 Body Temperature 97.81 [degF] [facility] 06-17-2019 07:54-0400 BP Diastolic 66 mm[Hg] [facility] 06-17-2019 07:54-0400 BP Systolic 99 mm[Hg] [facility] 06-17-2019 07:54-0400 Pulse (Heart Rate) 82 /min [facility] 06-17-2019 07:54-0400 Pulse Oximetry 94 % [facility] 06-14-2019 08:15-0400 BMI (Body Mass Index) 32.92 kg/m2 [facility] 06-14-2019 08:15-0400 Body weight 81.65 kg [facility] 06-14-2019 08:15-0400 Height 157.5 cm [facility] 06-14-2019 04:20-0400 Pulse (Heart Rate) 83 /min [facility] [place] 06-14-2019 04:05-0400 BP Diastolic 58 mm[Hg] [facility] [place] [facility] [place] 06-14-2019 04:05-0400 BP Systolic 95 mm[Hg] [facility] [place] [facility] [place] 06-14-2019 04:05-0400 Pulse Oximetry 95 % [facility] [place] [facility] [place] 06-14-2019 01:12-0400 Respiratory Rate 18 /min [facility] [place] 06-14-2019 00:10-0400 Body Temperature 100.51 [degF] [facility] [place] 06-13-2019 22:00-0400 BMI (Body Mass Index) 32.31 kg/m2 [facility] [place] 06-13-2019 22:00-0400 Body weight 82.74 kg [facility] [place] [facility] [place] 06-13-2019 22:00-0400 Height 160 cm [facility] [place] [facility] [place] 04-28-2019 19:58-0500 Body Temperature 98.8 [degF] [facility] [place] 04-28-2019 19:58-0500 BP Diastolic 70 mm[Hg] [facility] [place] [facility] [place] 04-28-2019 19:58-0500 BP Systolic 98 mm[Hg] [facility] [place] [facility] [place] 04-28-2019 19:58-0500 Pulse (Heart Rate) 119 /min [facility] [place] 04-28-2019 19:58-0500 Pulse Oximetry 100 % Roslyn [facility] [place] 04-28-2019 19:58-0500 Respiratory Rate 30 /min [facility] [place] 04-28-2019 19:54-0500 BMI (Body Mass Index) 30.65 kg/m2 Roslyn Ke[place] [facility] [place] 04-28-2019 19:54-0500 Body weight 78.47 [facility] [place] 04-28-2019 19:54-0500 Height 160 cm Roslyn Keating [place], [place] Encounters Encounter Date Encounter Type Care Provider Facility Start: 11-23-2023 End: 11-23-2023 ambulatory MARK ELIANA Not Available Start: 11-09-2023 End: 11-09-2023 ambulatory MARK ELIANA Not Available Start: 10-26-2023 End: 10-26-2023 ambulatory MARK ELIANA Not Available Start: 10-05-2023 End: 10-05-2023 ambulatory VIOLET JUAREZ [facility] Start: 10-05-2023 End: 10-05-2023 Subsequent hospital visit by physician Violet Juarez MD Work Phone: [id number] Labor [facility] Delivery Start: 10-05-2023 End: 10-05-2023 Emergency department patient visit [facility] Vijaya [facility] Start: 10-05-2023 End: 10-05-2023 Emergency department patient visit [facility] Vijaya [facility] Start: 09-12-2023 End: 09-12-2023 ambulatory MARK ELIANA Not Available Start: 08-16-2023 End: 08-16-2023 ambulatory MARK ELIANA Not Available Start: 07-26-2023 End: 07-26-2023 ambulatory BLAKE Holden JAMARI [facility] Start: 07-19-2023 End: 07-19-2023 ambulatory MARK ELIANA Not Available Start: 06-21-2023 End: 06-21-2023 ambulatory MARK ELIANA Not Available Start: 05-20-2023 End: 05-20-2023 ambulatory MARK ELIANA Not Available Start: 05-13-2023 End: 05-13-2023 Emergency department patient visit Jonathan Michelle [place] Start: 05-13-2023 End: 05-13-2023 Emergency department patient visit Jonathan Martinez [facility] Start: 05-11-2023 End: 05-12-2023 Emergency department patient visit Zac Fields [place] Start: 05-11-2023 End: 05-11-2023 Emergency department patient visit Zac Herreraailin [facility] Start: 05-10-2023 End: 05-10-2023 Emergency department patient visit LINDA SHEPPARD [facility] Start: 05-10-2023 End: 05-10-2023 Emergency department patient visit Chet Berumen DO Work Phone: [facility] ED Comment on above: Toothache (Primary D x); Dental decay Start: 12-27-2022 End: 12-27-2022 ambulatory MARK RAYRAY DUMONT [facility] Start: 11-23-2022 End: 11-23-2022 ambulatory MARK DUMONT [facility] Start: 09-04-2022 End: 09-04-2022 Emergency department patient visit Erin Lacy MD Work Phone: [facility] ED Comment on above: Sprain of right ankl e, unspecified ligament, initial encounter (Primary Dx) Start: 06-29-2022 End: 06-30-[address] MARK DUMONT . Facility: Start: 06-29-2022 End: 06-30-2022 ambulatory Linda Sheppard [place] Start: 06-29-2022 End: 06-29-2022 Pain Management Todd Smart [facility] Start: 06-14-2022 End: 06-14-[address] MARK DUMONT . Facility: Start: 05-19-2022 End: 05-19-2022 Emergency department patient visit Erin Lacy MD Work Phone: [facility] ED Comment on above: Dry socket (Primary Dx) Start: 05-11-2022 End: 05-11-2022 Emergency department patient visit Anuj Quinn MD Work Phone: [facility] ED Comment on above: Masseter muscle spas m (Primary Dx); Other acute postprocedural pain Start: 03-30-[address] MARK DUMONT . Facili ty:[facility] Start: 03-29-2022 End: 03-29-2022 Subsequent hospital visit by physician [facility] Start: 10-12-2021 End: 10-12-2021 Emergency department patient visit Rishabh Mancini MD Work Phone: [facility] ED Comment on above: Acute bronchitis, un specified organism (Primary Dx) Start: 07-22-2021 End: 07-22-2021 Emergency department patient visit Clark Moser MD Work Phone: [facility] ED Comment on above: Acute pharyngitis, u nspecified etiology (Primary Dx) Start: 07-07-2021 ambulatory BRIE COVARRUBIASBRAD [facility] Ambulatory Start: 06-18-2021 ambulatory [facility] Start: 06-17-2021 End: 06-18-2021 ambulatory [facility] Start: 05-15-2021 End: 05-19-2021 ambulatory [facility] Start: 05-15-2021 End: 05-15-2021 Nutrition therapy Farhat Vang MD Work Phone: [facility] Comment on above: Morbid obesity with body mass index (BMI) of 40.0 or higher (HCC) Start: 05-14-2021 End: 05-18-2021 ambulatory [facility] Start: 05-14-2021 End: 05-14-2021 Office outpatient visit 15 minutes Farhat Vang MD Work Phone: [facility] Comment on above: Anxiety and depressi on (Primary Dx); At risk for obstructive sleep apnea; Chronic bilateral low back pain without sciatica; Hepatitis C antibody positive in blood; Body mass index 40.0-44.9, adult (HCC); History of opioid abuse (HCC) Start: 04-16-2021 End: 04-20-2021 ambulatory [facility] Start: 04-16-2021 End: 04-16-2021 Initial preventive medicine new pt age 18-39yrs Narcis Dawit Papadopol MD Work Phone: [facility] Comment on above: Encounter for genera l adult medical examination with abnormal findings (Primary Dx); Anxiety and depression; History of opioid abuse (HCC); Morbid obesity with body mass index (BMI) of 40.0 or higher (HCC) Start: 04-16-2021 End: 04-16-2021 Patient encounter status Farhat Vang MD Work Phone: [facility] Start: 03-23-2021 End: 03-23-2021 Emergency department patient visit Anuj Quinn MD Work Phone: [facility] ED Comment on above: COVID-19 (Primary Dx ); Omphalitis in adult Start: 02-16-2021 End: 02-20-2021 ambulatory [facility] Start: 02-12-2021 End: 02-16-2021 ambulatory PHYSICIAN [facility] Start: 02-10-2021 End: 02-14-2021 ambulatory [facility] Start: 02-02-2021 End: 02-06-2021 ambulatory PHYSICIAN [facility] Start: 01-15-2021 Documentation procedure Jeimy goodman 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 [facility] Start: 01-15-2021 End: 01-15-2021 ambulatory HOLLAND WHIPPLE SETH [facility] Ambulatory Start: 01-15-2021 End: 01-15-2021 Office outpatient new 30 minutes Holland Ann MD Work Phone: [facility] Comment on above: Hemorrhoids, unspeci fied hemorrhoid type Start: 12-29-2020 End: 01-02-2021 ambulatory PHYSICIAN [facility] Start: 12-27-2020 End: 12-27-2020 Emergency department patient visit Wayne Springer MD Work Phone: [facility] ED Comment on above: Viral syndrome (Prim prakash Dx) Start: 11-20-2020 End: 11-20-2020 Emergency department patient visit Anuj Quinn MD Work Phone: [facility] ED Comment on above: Strain of rhomboid m uscle, initial encounter; Chest wall muscle strain, initial encounter Start: 11-07-2020 End: 11-07-2020 Emergency department patient visit Nicholas Roger MD Work Phone: [facility] ED Comment on above: Viral URI (Primary D x) Start: 08-28-2020 End: 08-30-2020 Evaluation and management of inpatient [facility] Start: 08-25-2020 End: 08-25-2020 ambulatory PHYSICIAN [facility] Start: 07-29-2020 End: 08-02-2020 ambulatory PHYSICIAN [facility] Start: 07-22-2020 End: 07-26-2020 ambulatory [facility] ANGIE [facility] Start: 07-22-2020 End: 07-22-2020 Telemedicine consultation with patient Lelo Gallegos MD Work Phone: [facility] Comment on above: Diet controlled gest ational diabetes mellitus (GDM) in third trimester Start: 07-10-2020 ambulatory LELO ADAMS [facility] Ambulatory Start: 07-09-2020 End: 07-09-2020 ambulatory ZELDA BAUTISTA [facility] Ambulato ry Start: 07-09-2020 End: 07-09-2020 Office outpatient visit 15 minutes Zelda Bautista CNP Work Phone: [facility] Comment on above: Diet controlled gest ational diabetes mellitus (GDM) in third trimester (Primary Dx) Start: 06-24-2020 End: 06-24-2020 Emergency department patient visit Anuj Quinn MD Work Phone: [facility] ED Comment on above: Acute frontal sinusi tis, recurrence not specified (Primary Dx) Start: 06-10-2020 End: 06-10-2020 Nutrition therapy Lelo Gallegos Work Phone: [facility] Comment on above: Diet controlled gest ational diabetes mellitus (GDM) in second trimester Start: 06-09-2020 End: 06-09-2020 Office outpatient new 30 minutes Roslyn Stevenson MD Work Phone: [facility] Comment on above: Diet controlled gest ational diabetes mellitus (GDM) in second trimester Start: 05-27-2020 End: 05-31-2020 ambulatory PHYSICIAN [facility] Start: 05-21-2020 End: 05-25-2020 ambulatory PHYSICIAN [facility] Start: 03-26-2020 End: 03-26-2020 Emergency department patient visit Brie Moreno Work Phone: [facility] ED Comment on above: Atypical pneumonia ( Primary Dx) Start: 02-15-2020 End: 02-15-2020 Emergency department patient visit Brie Moreno Work Phone: [facility] ED Comment on above: Pain, dental (Primar y Dx); Acute gingivitis; Alveolar osteitis Start: 11-20-2019 End: 11-20-2019 Emergency department patient visit Anuj Quinn Work Phone: [facility] ED Comment on above: Bacterial vaginosis (Primary Dx); Trichimoniasis; Furuncle of left axilla Start: 11-03-2019 End: 11-03-2019 Emergency department patient visit Wayne Maryuri Springer Work Phone: [facility] ED Comment on above: Poison arabella (Primary Dx) Start: 08-20-2019 End: 08-21-2019 Patient encounter procedure HODA MADERA [facility] Start: 08-20-2019 End: 08-20-2019 Subsequent hospital visit by physician [facility] Start: 08-13-2019 End: 08-13-2019 Emergency department patient visit Christianhansel Martinez Work Phone: [facility] Emergency Department Comment on above: Heroin abuse (HCC) ( Primary Dx) Start: 06-20-2019 End: 06-20-2019 Patient encounter procedure Alisa Palencia Work Phone: [facility] Comment on above: Hepatitis C virus in fection without hepatic coma, unspecified chronicity (Primary Dx) Start: 06-18-2019 End: 06-18-2019 Documentation procedure Taryn Torres [facility] Start: 06-18-2019 Follow-up encounter Taryn Cartagena [facility] Comment on above: Transition Of Care Start: 06-18-2019 End: 06-18-2019 Patient encounter procedure Taryn Stokes Torres [facility] Start: 06-14-2019 End: 06-17-2019 Evaluation and management of inpatient [facility] Work Phone: [facility] Comment on above: Elevated LFTs; IVDA (intravenous drug abuse) complicating (HCC) Start: 06-13-2019 End: 06-14-2019 Emergency department patient visit Brie Moreno Work Phone: [facility] ED Comment on above: Abdominal pain, unsp ecified abdominal location (Primary Dx); Urinary tract infection with hematuria, site unspecified; Viral hepatitis without hepatic coma, unspecified chronicity, unspecified viral hepatitis type; Polysubstance abuse (HCC); Hyperbilirubinemia Start: 04-28-2019 End: 04-28-2019 Emergency department patient visit Roslyn Keating Work Phone: [facility] ED Comment on above: Accidental overdose of heroin, initial encounter (HCC) (Primary Dx) Start: 12-20-2016 End: 01-02-2020 Cancer cervix - screening done Lelo Gallegos MD Work Phone: [facility] Start: 12-20-2016 End: 01-02-2020 Encounter for gynecological examination (general) (routine) without abnormal findings Jeimy Tan 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 [facility] Procedures Date Procedure Procedure Detail Performing Clinician Start: 09-04-2022 Radex ankle complete minimum 3 views Erin Lacy MD Work Phone: Start: 09-04-2022 Urine test visual color cmprsn randy Lacy MD Work Phone: Start: 05-11-2022 Ct maxillofacial w/o contrast material Anuj Quinn MD Work Phone: Start: 05-11-2022 Urine test visual color cmpleti Quinn MD Work Phone: Start: 03-29-2022 Gonadotropin [...] wbc Anuj Quinn MD Work Phone: Start: 03-23-2021, RAPID Parish Quinn MD Work Phone: Start: 03-23-2021 Iaadiadoo influenza Chr daryl Quinn MD Work Phone: Start: 12-29-2020 Microscopic observat ion [Identifier] in Cervix by Cyto stain Jeimy Tan LPN Start: 12-27-2020, RAPID Wayne Springer MD Work Phone: Start: [...] Drugs of abuse urine screening test Indra Handylivan Work Phone: Start: 06-14-2019 Urinalysis Carli Ro [...] 06-14-2019 Manual Differential panel - Blood Indra Castro Edmond Work Phone: Start: 06-14-2019 Red blood cell [...] of 2) Shingles Vaccine (1 of 2) [facility]- [place], [place] Start: 12-29-2025 Screening for malignant neoplasm of cervix Pap Smear [facility] Start: 10-31-2024 Screening for malignant neoplasm of cervix Pap Smear [facility] Start: 12-30-2023 Screening for malignant neoplasm of cervix [facility] Start: 11-11-2023 Respiratory Syncytial Virus (RSV) or age 60 yrs+ (1 - Risk 1-dose series) Respiratory Syncytial Virus (RSV) or age 60 yrs+ (1 - Risk 1-dose series) [facility] Start: 11-10-2023 End: 11-10-2023 Patient encounter procedure 11/10/2023 10:00 AM EDT Routine [facility] [address] [facility] [address] [place] [address] [facility] Start: 10-27-2023 End: 10-27-2023 Patient encounter procedure 10/27/2023 10:00 AM EDT Routine [facility] [address] [facility] [address] [place] [address] [facility] Start: 10-13-2023 End: 10-13-2023 Patient encounter procedure 10/13/2023 10:00 AM EDT Routine [facility] [address] [facility] [address] [place] [address] Return in about 2 weeks (around 10/04/2023) for twins, dopplers, growth, transvag. [facility] Comment on above: Return in about 2 weeks (around ) for twins, dopplers, growth, transvag. Start: 10-07-2023 Tdap Vaccine during Tdap Vaccine during [facility] [employer] Start: 10-06-2023 Influenza vaccination Flu vaccine (#1) [facility] [employer] Start: 10-31-2022 Screening for malignant neoplasm of cervix [facility] [employer] Work Phone: Start: 10-05-2022 Influenza vaccination Flu vaccine (#1) [facility] Start: 04-16-2022 History and physical examination, annual for health maintenance Wellness Visit [facility] Start: 02-13-2022 Depression Remission Assessment (PHQ9) Depression Remission Assessment (PHQ9) [facility] Start: 12-29-2021 History and physical examination, annual for health maintenance Wellness Visit [facility] Start: 11-12-2021 End: 11-12-2021 Patient encounter procedure 11/12/2021 Office Visit Primary Care Farhat Vang MD [address] [facility] [address] [place] [address] [facility] Start: 11-05-2021 Influenza vaccination [facility] Start: 10-05-2021 Influenza vaccination Flu vaccine (#1) [facility] Start: 06-26-2021 End: 06-26-2021 Nutrition therapy 06/26/2021 Nutrition Nutrition Farhat Vang MD [address] [facility] [address] [place] [address] [facility] Start: 05-15-2021 End: 05-15-2021 Nutrition therapy 05/15/2021 Nutrition Nutrition Angelito Havrey RD [facility] Start: 05-14-2021 End: 05-14-2021 Patient encounter procedure 05/14/2021 Office Visit Primary Care Farhat Vang MD [address] [facility] [address] [place] [address] [facility] Start: 03-17-2021 Depression screening using PHQ-9 (Patient Health Questionnaire 9) score Depression Screening (PHQ9) [facility] Start: 01-15-2021 Depression Remission Assessment (PHQ9) Depression Remission Assessment (PHQ9) [facility] Start: 01-09-2021 Hemoglobin A1c measurement A1C [facility] Start: 12-09-2020 HbA1c (Bld) [Mass fraction] A1C [facility] Start: 12-09-2020 Hemoglobin A1c measurement A1C [facility] Start: 11-05-2020 Influenza vaccination [facility] Start: 10-31-2020 History and physical examination, annual for health maintenance Wellness Visit [facility] Start: 08-28-2020 End: 08-28-2020 Admission to same day surgery center 08/28/2020 Surgery Obstetrics Roslyn Stevenson MD [facility] [place] [address] [phone] SECTION [facility] Labor & Delivery Comment on above: SECTION Start: 08-28-2020 Subsequent hospital visit by physician 08/28/2020 Hospital Encounter Obstetrics Roslyn Stevenson MD [address] [place] [address] [phone] [facility] Labor & Delivery Start: 08-25-2020 End: 08-25-2020 Office Visit 08/25/2020 Office Visit Endocrinology Zelda Bautista, QUALITY DIRECTOR [address] [place] [address] [phone] [facility] Start: 07-31-2020 End: 07-31-2020 Office Visit 07/31/2020 Office Visit Endocrinology Benito Krueger CNP [address] [place] [address] [phone] [facility] Start: 07-29-2020 End: 07-29-2020 Patient encounter procedure 07/29/2020 Routine Obstetrics and Gynecology Regla Dias CNM [address] [place] [phone] [place] [facility] Start: 07-22-2020 End: 07-22-2020 Telemedicine consultation with patient 07/22/2020 Telemedicine Nutrition Lelo Gallegos MD [address] [place] [address] [phone] [facility] Start: 07-17-2020 End: 07-17-2020 Patient encounter procedure 07/17/2020 Routine Obstetrics and Gynecology Yvonne Satnos MD [address] [place] [phone] [facility] - [facility] Start: 07-09-2020 End: 07-09-2020 Office Visit 07/09/2020 Office Visit Endocrinology Zelda Bautista, QUALITY DIRECTOR [address] [place] [address] [phone] [facility] Start: 07-04-2020 End: 07-04-2020 Patient encounter procedure 07/04/2020 Routine Obstetrics and Gynecology Radha Pantoja MD [address] [place] [phone] [place] [facility] - [facility] Start: 06-26-2020 End: 06-26-2020 Patient encounter procedure 06/26/2020 Office Visit Endocrinology Janie Chen PA-C [address] [place] [address] [phone] [facility] Start: 06-24-2020 End: 06-24-2020 Nutrition [facility] Start: 06-19-2020 End: 06-19-2020 Routine 06/19/2020 Routine Obstetrics and Gynecology Regla Dias CNM [address] [place] [phone] [facility] - [facility] Start: 05-17-2020 Depression screening using PHQ-9 (Patient Health Questionnaire 9) score Depression Screening (PHQ9) [facility] Start: 2020 Screening for malignant neoplasm of cervix [facility] Start: 02-26-2020 End: 02-26-2020 Initial 02/26/2020 Initial Obstetrics and Gynecology Jai Huerta MD [address] [facility] [facility] [address] [place] [address] [facility] [place] [facility] Start: 11-06-2019 Influenza vaccination [facility] [place] Start: 11-06-2019 Influenza vaccination given [facility] Start: 08-06-2019 Screening for malignant neoplasm of cervix Pap Smear [facility] Start: 06-20-2019 End: 06-20-2019 Office Visit 06/20/2019 Office Visit Transition of Care Alisa Palencia, QUALITY DIRECTOR [address] [facility] [address] [place] [address] [phone] [facility] Start: 11-05-2018 Influenza vaccination Flu vaccine (#1) [place] Start: 11-05-2018 Influenza vaccination given Sequential Influenza Vaccine (#1) [facility] Start: 03-21-2015 Cervical cancer screen Cervical cancer screen [place] Start: 03-21-2015 Screening for malignant neoplasm of cervix Cervical cancer screen [place] Start: 04-05-2014 Screening for malignant neoplasm of cervix Pap smear [facility] Start: 2009 DTaP/Tdap/Td vaccine (1 - Tdap) DTaP/Tdap/Td vaccine (1 - Tdap) [place] Start: 2009 Hepatitis B vaccine (1 of 3 - Risk 3-dose series) Hepatitis B vaccine (1 of 3 - Risk 3-dose series) [facility] Work Phone: Start: 2008 Hepatitis C screening Hepatitis C screen [facility] Start: 2006 COVID-19 Vaccine (1) COVID-19 Vaccine (1) [facility] Start: 2005 HIV screen HIV screen [place], [place] Start: 2005 HIV screening HIV screen [facility] Start: 2002 COVID-19 Vaccine (1) COVID-19 Vaccine (1) [facility] Start: 2002 Depression Monitoring Depression Monitoring [facility] Start: 2001 DTaP/Tdap/Td vaccine (1 - Tdap) DTaP/Tdap/Td vaccine (1 - Tdap) [place] Start: 2001 DTaP/Tdap/Td vaccine (5 - Tdap) DTaP/Tdap/Td vaccine (5 - Tdap) [facility] Start: 2000 Albumin DL <= 20 mg/L (U) [Mass/Vol] Urine Microalbumin [facility] Start: 2000 Diabetic foot examination Foot Exam [facility] Start: 2000 Microalbumin measurement, urine, quantitative Urine Microalbumin [facility] Start: 2000 Ophthalmic examination and evaluation Ophthalmology Exam [facility] Start: 1996 Pneumococcal 0-64 years Vaccine (1 of 1 - PPSV23) Pneumococcal 0-64 years Vaccine (1 of 1 - PPSV23) [place] Start: 1996 Pneumococcal Vaccine: Ped or At-Risk (1 of 2 - PPSV23) Pneumococcal Vaccine: Ped or At-Risk (1 of 2 - PPSV23) [facility] Start: 1995 COVID-19 Vaccine (1) COVID-19 Vaccine (1) [facility] Start: 1993 History and physical examination, annual for health maintenance Wellness Visit [facility] Start: 1991 Varicella vaccine (1 of 2 - 2-dose childhood series) Varicella vaccine (1 of 2 - 2-dose childhood series) [facility] Start: 1990 COVID-19 Vaccine (#1) COVID-19 Vaccine (#1) [facility] Start: 1990 Hepatitis B vaccine (1 of 3 - 3-dose series) Hepatitis B vaccine (1 of 3 - 3-dose series) [facility] Start: 1990 Hepatitis C screening Hepatitis C screen [facility] Start: 1990 Tetanus vaccination Tetanus: Every 10yrs [facility] Anti smooth muscle antibody IgA level Anti-Smooth Muscle Antibody Lab Add-On 06/15/2019 1:50 PM EDT [facility] Antimitochondrial antibody titer Antimitochondrial Antibody Lab Add-On 06/15/2019 1:50 PM EDT [facility] End: 11-20-2019 C.trachomatis N.gonorrhoeae DNA, Urine C.trachomatis N.gonorrhoeae DNA, Urine Microbiology STAT One Time for 1 Occurrences starting 11/20/2019 until 11/20/2019 [place] Comment on above: One Time for 1 Occurrences starting 11/05 until 11/20/2019 C.trachomatis N.gonorrhoeae DNA, Urine C.trachomatis N.gonorrhoeae DNA, Urine Microbiology Stat [employer] Label print 11/20/2019 5:55 PM EDT [place] End: 03-26-2020 Covid-19 Ambulatory Covid-19 Ambulatory Lab Routine Once for 1 Occurrences starting 03/26/2020 until 03/26/2020 [place] Comment on above: Once for 1 Occurrences starting 03/26/19 21 until 03/26/2020 Covid-19 Ambulatory Covid-19 Amb ulatory Lab Routine 03/26/2020 8:44 PM EST [place] End: 06-13-2019 Culture, Blood 1 Culture, Blood 1 Microbiology STAT One Time for 1 Occurrences starting 06/13/2019 until 06/13/2019 [place] Comment on above: One Time for 1 Occurrences starting 10/2019 until 06/13/2019 Culture, Blood 1 [place], [place] End: 03-23-2021 Culture, Wound [facility] Work Phone: Comment on above: One Time for 1 Occurrences starting 03/07 until 03/23/2021 Cytomegalovirus DNA assay CMV DN A Detection and Quant, Blood Lab Routine 06/15/2019 1:50 PM EDT [facility] Kirsten-Hazel Virus P CR, Quantitative Kirsten-Hazel Virus PCR, Quantitative Lab Routine 06/15/2019 1:50 PM EDT [facility] End: 04-16-2022 Hemoglobin A1c/Hemoglobin.total in Blood Hemoglobin A1c Lab Routine Encounter for general adult medical examination with abnormal findings 1 Occurrences starting 04/16/2021 until 04/16/2022 [facility] Work Phone: Comment on above: 1 Occurrences starting 04/16/2021 until 04/16/2022 Hemoglobin A1c/Hemoglobin.total in Blood Hemoglobin A1c Lab Routine Encounter for general adult medical examination with abnormal findings 04/16/2021 10:[address] [facility] End: 04-16-2022 Hepatitis C antibody measurement Hepatitis C Antibody Lab Routine Encounter for general adult medical examination with abnormal findings 1 Occurrences starting 04/16/2021 until 04/16/2022 [facility] Comment on above: 1 Occurrences starting 04/16/2021 until 04/16/2022 Hepatitis C antibody measurement Hepatitis C Antibody Lab Routine Encounter for general adult medical examination with abnormal findings 04/16/2021 10:[address] [facility] MDI Treatment MDI Treatment Re spiratory Care Routine Every 6hr As Needed until discontinued starting 03/26/2020 [place] Comment on above: Every 6hr As Needed until discontinued s tarting 03/26/2020 Nonrebreather mask oxygen Nonreb reather mask oxygen Respiratory Care Routine As Needed until discontinued starting 10/05/2023 [facility] Comment on above: As Needed until discontinued starting Nuclear Ab IF (S) [Titer] KENIA La b Add-On 06/15/2019 1:50 PM EDT [place] End: 06-24-2020 Urinalysis, reflex to microscopic Urinalysis, reflex to microscopic Lab STAT One Time for 1 Occurrences starting 06/24/2020 until 06/24/2020 [employer] Work Phone: Comment on above: One Time for 1 Occurrences starting 06/06 until 06/24/2020 End: 05-14-2022 XR Lumbar Spine Complete AP/Lat w Obls XR Lumbar Spine Complete AP/Lat w Obls Imaging Routine Chronic bilateral low back pain without sciatica 1 Occurrences starting 05/14/2021 until 05/14/2022 [employer] Work Phone: Comment on above: 1 Occurrences starting 05/14/2021 until 05/14/2022 Payers Date Payer Category Payer Medicaid [employer] [id number] 2021-Present [phone] [address] [place] [address] [id number]. [id number] 2021 Unknown [id number] 1.2.840.373685.1.13.239.2. 7.3.445798.315 2017 Medicaid [id number] 1.2.840.629834.1.13.385.2. 7.3.364283.315 2012 Medicaid [id number] 1.2.840.989397.1.13.239.2. 7.3.762069.315 2012 Medicaid [id number] 2008 Private Health Insurance [id number] 1990 Unknown [id number] 2.16.840.1.888369.3.579.2. 173 1990 Unknown [id number] 2.16.840.1.318020.3.579.2. 900 1990 Unknown [id number] 2.16.840.1.579593.3.579.2. 900 1990 Unknown [id number] 2.16.840.1.568467.3.579.2. 900 1990 Unknown [id number] 2.16.840.1.577080.3.579.2. 900 1990 Unknown [id number] 2.16.840.1.882235.3.579.2. 900 1990 Unknown [id number] 2.16.840.1.733944.3.579.2. 900 1990 Unknown [id number] 2.16.840.1.663319.3.579.2. 900 1990 Unknown [id number] 2.16.840.1.832991.3.579.2. 903 1990 Unknown [id number] 2.16.840.1.786438.3.579.2. 903 1990 Unknown [id number] 2.16.840.1.467533.3.579.2. 903 1990 Unknown [id number] 2.16.840.1.124119.3.579.2. 903 1990 Unknown [id number] 2.16.840.1.862530.3.579.2. 903 1990 Unknown [id number] 2.16.840.1.280039.3.579.2. 903 1990 Unknown [id number] 2.16.840.1.465486.3.579.2. 903 1990 Unknown [id number] 2.16.840.1.315648.3.579.2. 903 1990 Unknown [id number] 2.16.840.1.623256.3.579.2. 903 1990 Unknown [id number] 2.16.840.1.451395.3.579.2. 903 1990 Unknown [id number] 2.16.840.1.512352.3.579.2. 903 1990 Unknown [id number] 2.16.840.1.298408.3.579.2. 903 1990 Unknown [id number] 2.16.840.1.689337.3.579.2. 903 1990 Unknown [id number] 2.16.840.1.697302.3.579.2. 903 1990 Unknown [id number] 2.16.840.1.211076.3.579.2. 903 1990 Unknown [id number] 2.16.840.1.961670.3.579.2. 593 1990 Unknown [id number] 2.16.840.1.518715.3.579.2. 593 1990 Unknown [id number] 2.16.840.1.213442.3.579.2. 593 1990 Unknown [id number] 2.16.840.1.930366.3.579.2. 593 1990 Unknown [id number] 2.16.840.1.354210.3.579.2. 727 1990 Unknown [id number] 2.16.840.1.169784.3.579.2. 727 1990 Unknown [id number] 2.16.840.1.824282.3.579.2. 727 1990 Unknown [id number] 2.16.840.1.220302.3.579.2. 174 1990 Unknown [id number] 2.16.840.1.789406.3.579.2. 174 1990 Unknown [id number] 2.16.840.1.879385.3.579.2. 174 1990 Unknown [id number] 2.16.840.1.108184.3.579.2. 174 1990 Unknown [id number] 2.16.840.1.543623.3.579.2. 174 1990 Unknown [id number] 2.16.840.1.651371.3.579.2. 175 1990 Unknown [id number] 2.16.840.1.537521.3.579.2. 175 1990 Unknown [id number] 2.16.840.1.200554.3.579.2. 175 1990 Unknown [id number] 2.16.840.1.445930.3.579.2. 9 1990 Unknown [id number] 2.16.840.1.242119.3.579.2. 9 1990 Unknown [id number] 2.16.840.1.015852.3.579.2. 9 1990 Unknown [id number] 2.16.840.1.076068.3.579.2. 9 1990 Unknown [id number] 2.16.840.1.308362.3.579.2. 9 1990 Unknown [id number] 2.16.840.1.999047.3.579.2. 9 1990 Unknown [id number] 2.16.840.1.804439.3.579.2. 9 1990 Unknown [id number] 2.16.840.1.484037.3.579.2. 9 1959 Unknown [id number] Social History Date Type Detail Facility Start: 04-28-2019 End: 11-03-2019 Tobacco smoking status MOIS Current every day smoker [place] End: 02-15-2020 History of tobacco use Cigarette Smoker [place] Start: 04-28-2019 End: 10-05-2023 Cigarettes smoked current (pack per day) - Reported [facility] [employer] Start: 04-28-2019 Alcohol intake Current drinke r of alcohol (finding) Joslyn Sensorist ILYA HOOPER Start: 1990 Sex Assigned At Not on file M mamie [employer] ILYA HOOPER Start: 06-13-2019 End: 10-05-2023 Alcohol intake Ex-drinker (finding) Joslyn [facility] Reece HOOPER Y Exposure to SARS-CoV -2 (event) Unable to assess Joslyn Sensorist CTILYA Start: 05-18-2019 End: 04-16-2021 History SDOH Alcohol Frequency 3 [facility] Start: 05-18-2019 End: 07-16-2020 History SDOH Alcohol Std Drinks 5 [facility] Start: 05-04-2021 End: 05-19-2022 Exposure to SARS-CoV-2 (event) Not sure [facility] Start: 11-20-2019 End: 07-26-2023 [facility] use and exposure [facility] Start: 06-09-2020 End: 07-26-2023 Tobacco smoking status NHIS Former smoker [facility] End: 02-15-2020 History of tobacco use Current smoker [facility] Start: 12-09-2019 [facility] Start: 04-16-2021 History SDOH Social Connections Get Together 4 [facility] Start: 04-16-2021 History SDOH Food Worry 1 [facility] Start: 09-04-2022 End: 10-05-2023 [facility] Start: 09-04-2022 History SDOH Alcohol Frequency 2 [employer] How often to you hav e a drink containing alcohol? Monthly or less [employer] Average Number of Drinks Not on file [employer] How often to you hav e a drink containing alcohol? Never [employer] Medical Equipment Procedure Code Equipment Code Equipment Origin al Text Equipment Identifier Dates Use to check BG QID Dx O24.14 . [id number] Start: 06-09-2020 Use as instructe d to check BG QID Dx O24.14 . [id number] Start: 06-09-2020 End: 06-11-2020 use to test BLOO D SUGAR FOUR TIMES DAILY [id number] Start: 06-09-2020 Goals Date Patient Goal Desired Activity /State Functional Status Date Assessment Result Facility 05-13-2023 Functional Status N/A [facility] 05-11-2023 Functional Status N/A [facility] 06-29-2022 Functional Status N/A [facility] Clinical Notes 06-09-2020 to 05-13-2023 Note [...] Follow these instructions at home: Medicines Take qpnb-tfz-jyibjkx and prescription medicines only as told by [...] provider. Document Revised: 04/30/2021 Document Reviewed: 04/30/2021 [employer] Patient Education 2022 [employer]. Follow Up Care 05/13/2023 11:20:07 With:[employer] Address: [address] [place] [address] [place] [address] [facility] (1) When:05/16/2023 12:45:32 Comments:Dentistry follow-up [facility] 05-12-2023 Hospital Discharg e instructions Patient Education 05/11/2023 23:33:09 Dental Pain, Jfne-pv-Qbbi Dental Pain Dental pain is often a [...] Follow these instructions at home: Medicines Take qsxq-vdn-fhvgpbq and prescription medicines only as told by [...] damage to the area. Brushing your teeth [place] your teeth twice a day using a [...] only when you eat or drink. Take kqew-mqp-jphccgt and prescription medicines only as told by your dentist. Watch your dental pain for any changes. Let your dentist know if symptoms get worse. This information is not intended to replace advice given to you by your health care provider. Make sure you discuss any questions you have with your health care provider. Document Revised: 11/26/2020 Document Reviewed: 11/26/2020 [employer] Patient Education 2022 [employer]. Follow Up Care 05/11/2023 21:26:40 With:Linda Sheppard DO Address: [address] [place] [id number] When:05/14/2023 [facility] 05-11-2023 Evaluation + Plan note Extrac roxann from: Title:ED Note Author:Violet Walters PA-C ate:05/11/23 1. Pain, dental (K08.89: Oth er specified disorders of teeth and supporting structures) Ordered: amoxicillin-clavulanate, = 1 tab(s), Oral, q12hr, X 7 day(s), # 14 tab(s), Refills(s) 0, Pharmacy: [facility], 160, cm, 05/11/23 21:53:00 EST, Height/Length Dosing, 110, kg, 05/11/23 21:53:00 EST, Weight Dosing chlorhexidine topical, 0.018 gm, 15 mL, Oral, BID, 480 mL, Refill(s) 0, (swish and spit; do not swallow), [facility], 160, cm, 05/11/23 21:53:00 EST, Height/Length Dosing, 110, kg, 05/11/23 21:53:00 EST, Weight Dosing 2. Infected dental caries (K02.9: Dental caries, unspecified) Ordered: amoxicillin-clavulanate, = 1 tab(s), Oral, q12hr, X 7 day(s), # 14 tab(s), Refills(s) 0, Pharmacy: [facility], 160, cm, 05/11/23 21:53:00 EST, Height/Length Dosing, 110, kg, 05/11/23 21:53:00 EST, Weight Dosing chlorhexidine topical, 0.018 gm, 15 mL, Oral, BID, 480 mL, Refill(s) 0, (swish and spit; do not swallow), [facility], 160, cm, 05/11/23 21:53:00 EST, Height/Length Dosing, 110, kg, 05/11/23 21:53:00 EST, Weight Dosing 3. First trimester (Z34.91: Encounter for supervision of normal , unspecified, first trimester) Periapical abscess without sinus (K04.7: Periapical abscess without sinus) Orders: ketorolac, 30 mg = 1 mL, Injection, IntraMuscular, Once, Stop date 05/11/23 23:31:00 EST, STAT, Start date 05/11/23 23:31:00 EST, 05/11/23 23:31:00 EST [facility]03-05-2024 Hospital Discharge instructions* Discharge Instructions* Chet Berumen DO - 05/10/2023 11:50 AM EST Use amoxicillin as prescribed. Use Tylenol as needed for pain. Follow-up with dentist as soon as possible. * Attachments The following attachments cannot be sent through Care Everywhere. * Tooth Decay (Solomon Islander) * Tooth and Gum Pain ([place] Islander) [facility] History of Present illness Narrative* Angelito [...] Supplements: Reviewed Current Outpatient Medications Ordered in [facility] Medication Sig Dispense Refill baclofen (LIORESAL) 10 [...] mg by mouth daily . No current [facility]-ordered facility-administered medications on file. Lab Results Component [...] - 6-7 PM- crock pot meals- goulash; Frisian chicken; spicy rice with chicken and beans; [...] calorie goals/day. Estimated Nutritional Needs: Calorie Needs: 9180-1876 kcals/day (MSJ x 1.3AF -500-1000 to promote gradual weight loss) Patient/Family Education: Learner: family and patient Readiness: action - ready to set action plan and implement goals Barriers to Learning: none Method: explanation and handout Response: verbalizes understanding Expected Adherence: good Education Materials Provided: Healthy Meal Planning handout ([facility]), Goal Sheet, 1,678-Ibprfgb4-Faj Menus (NCM), 1,800-Calorie 5-Day Menus (NCM), Weight Loss Tips ([facility]) Monitoring/Evaluation: Lab results, weight, food recall, meal planning, goal achievement, physical activity, medication management. This documentation has been sent to the referring healthcare provider. Angelito Harvey RDN, ZAHRA Personal Office documented in this [id number] History of Present illness Narrative* Farhat Vang [...] C hepatitis virus. Patient was referred to barn manager and the recommendation was made for a [...] improve, for Follow Up. documented in this [id number] History of Present illness Narrative* Farhat Vnag MD - 04/16/2021 10:27 AM EST OUTPATIENT [...] medications that are prescribed by her clinical quality assurance specialist. She has 4 children at home [...] Not difficult at all documented in this [id number] History of Present illness Narrative* Holland Ann [...] Procedure: SECTION; Surgeon: Roslyn Stevenson MD; Location: [facility]; Service: OBGYN SECTION, LOW TRANSVERSE 3 [...] Friends and Family: Not on file Attends [employer]: Not on file Active Member of [...] Report 12/29/2020 Final Value:Gynecologic Cytology Report Case: [id number] Authorizing Provider: Germania Valentino, Collected: 12/29/2020 11:09 AM QUALITY DIRECTOR Ordering Location: [facility] STUDENT DEVELOPMENT DEAN - An Received: 12/30/2020 12:03 PM [facility] First Screen: Violet Craig Rescreen: [...] from every slide are reviewed by a wire sawyer. Specimen processing and Primary Screening performed at: [facility] - [address] [place] [id number] HPV Results 12/29/2020 Final Value:This result contains [...] physician. Holland Ann MD documented in this [id number] History of Present illness Narrative* Jeimy Tan LPN - 01/15/2021 11:17 AM EST This nurse acted as a marketing information manager for a rectal exam by Dr. Ann for Tia. Tia verbalized consent to be examined, appeared comfortable and tolerated the exam well. documented in this [id number] History of Present illness Narrative* Neris Ulloa RD - 07/22/2020 12:04 PM EDT Patient Name: [...] no 2) I will try yoga on GOWEX - yes but didn't feel comfortable doing [...] oatmeal packet. Snack celery + PB or Tuvaluan yogurt or green peppers. Lunch - will be light if full from snack and may have an early dinner. Dinner - pork chops, steamed vegetables. Snack - Tuvaluan yogurt or vegetables or watermelon. Beverages - [...] prescription for Current Outpatient Medications Ordered in [facility] Medication Sig Dispense Refill blood sugar diagnostic [...] BLOOD SUGAR FOUR TIMES DAILY No current [facility]-ordered facility-administered medications on file. SMBG Results: 86-163. [...] the referring healthcare provider. documented in this [id number] Instructions* Patient Instructions* Zelda Bautista CNP - [...] to renew/prescribe testing supplies. documented in this [id number] History of Present illness Narrative* Zelda Bautista [...] visit with us. The patient did bring Eyeonplayod sugar meter with her for download today however there is not many readings on it. She states she started a new job at [employer] and does noise get breaks to check [...] 4. Patient to cont. To follow with black top spreader machine operator 5. Patient will require 2 hour 75 gram OGTT 8-12 weeks after delivery. 6. Follow-up in 2 weeks. Risks and potential complications of diabetes were reviewed with the patient. Electronically signed by Zelda MARIN 07/09/2110:03 AM documented in this [id number] History of Present illness Narrative* Lelo Gallegos [...] month during . While awaiting appointment with black top spreader machine operator, patient provided with details of GDM [...] 1 hour post prandial. 4. Referral to black top spreader machine operator 5. Patient will require 2 hour 75 gram OGTT 8-12 weeks after delivery. 6. Follow-up in 2 weeks. Risks and potential complications of diabetes were reviewed with the patient. documented in this encounterOhioHealthEvaluation + Plan note No data available for this section [facility]* Diagnosis Diet controlled gestational diabetes mellitus (GDM) in second trimester [facility]* Diagnosis Acute frontal sinusitis, recurrence not specified- Primary documented in this encounter [place] Phone: evaluation note* Diagnosis Diet controlled gestational diabetes mellitus (GDM) in third trimester- Primary [facility] Diagnosis Diet controlled gestational diabetes mellitus (GDM) in third trimester [facility]* Diagnosis Viral URI- Primary Acute upper respiratory infections of unspecified site documented in this encounter [place] Phone: evaluation note* Diagnosis Strain of rhomboid muscle, initial encounter Chest wall muscle strain, initial encounter documented in this encounter [place] Phone: evaluation note* Diagnosis Viral syndrome- Primary Unspecified viral infection, in conditions classified elsewhere and of unspecified site documented in this encounter [place] Phone: evaluation note* Diagnosis Hemorrhoids, unspecified hemorrhoid type [facility]* Diagnosis COVID-19- Primary Omphalitis in adult Unspecified local infection of skin and subcutaneous tissue documented in this encounter [place] Phone: evaluation note* Diagnosis Encounter for general adult medical examination with abnormal findings- Primary Anxiety and depression History of opioid abuse (HCC) Morbid obesity with body mass index (BMI) of 40.0 or higher (HCC) [facility]* Diagnosis Anxiety and depression- Primary At risk for obstructive sleep apnea Chronic bilateral low back pain without sciatica Hepatitis C antibody positive in blood Body mass index 40.0-44.9, adult (HCC) Body Mass Index 40.0-44.9, adult History of opioid abuse (HCC) [facility]* Diagnosis Morbid obesity with body mass index (BMI) of 40.0 or higher (HCC) [facility]* Diagnosis Acute pharyngitis, unspecified etiology- Primary documented in this encounter [place] Phone: evaluation note* Diagnosis Acute bronchitis, unspecified organism- Primary documented in this encounter [employer] Phone: evaluation note* Diagnosis Masseter muscle spasm- Primary Spasm of muscle Other acute postprocedural pain documented in this encounter [employer] Phone: evaluation note* Diagnosis Dry socket- Primary Alveolitis of jaw documented [facility]* Diagnosis Sprain of right ankle, unspecified ligament, initial encounter- Primary documented in this encounter [facility]* Diagnosis Toothache- Primary Unspecified disorder of the teeth and supporting structures Dental decay Unspecified dental caries documented in this encounter [facility]* Diagnosis 26 weeks gestation of - Primary state, incidental [facility]* Instructions* Anuj Quinn MD - 06/24/2020 Although many uwlb-swt-ghrrmnf cough cold flu sinus medications are safe in , I would contact her [employer] office in [facility] to verify what your [employer] group feels a safe in . Tylenol [...] be sent through Care Everywhere. * Sinusitis ([place] Islander) [facility] Phone[facility] Discharge instructions* Attachments The following attachments cannot be sent through Care Everywhere. * URI (Upper Respiratory Infection) ([place] Islander) documented [facility] this [facility] Phone: Hospital Discharge instructions* Attachments The following attachments cannot be sent through Care Everywhere. * Muscle Strain ([place] Islander) documented [facility] this [facility] Phone: Hospital Discharge instructions* Attachments The following attachments cannot be sent through Care Everywhere. * Viral Infections ([place] Islander) documented in this [facility] Phone: Hospital Discharge instructions* Attachments The following attachments cannot be sent through Care Everywhere. * Coronavirus Disease (COVID-19): General Info ([place] Islander) * Coronavirus Disease (COVID-19): Isolation ([place] Islander) * Piercing: Infection ([place] Islander) documented [facility] this [facility] Phone: spital Discharge instructions* Instructions* Clark Moser MD - 07/22/2021 Use Tylenol or Motrin for pain. Take amoxicillin twice a day. Amoxicillin treats strep throat, ear infections, bronchitis and pneumonia. Call primary care doctor for close follow-up. * Attachments The following attachments cannot be sent through Care Everywhere. * Sore Throat ([place] Islander) [facility] this [facility] Phone: spital Discharge instructions* Attachments The following attachments cannot be sent through Care Everywhere. * Bronchitis ([place] Islander) documented in this [facility] [employer] Phone: [facility] Discharge instructions* Attachments The following attachments cannot be sent through Care Everywhere. * Cramp: Muscle ([place] Islander) * Pain Post-Surgery: Acute ([place] Islander) documented in this [facility] [employer] Phone: [facility] Discharge instructions* Attachments The following attachments cannot be sent through Care Everywhere. * [place] Tooth Extraction: Post-op ([place] Islander) documented in this [facility] [employer] Phone: [facility] Discharge instructions No data available for this section [facility] Discharge instructions* Attachments The following attachments cannot be sent through Care Everywhere. * Ankle Sprain ([place] Islander) documented [facility] this [facility] Discharge instructions* Attachments The following attachments cannot be sent through Care Everywhere. * : Weeks 26 to 30 ([place] Islander) * : When to Call (After 20 Weeks): General Info ([place]er) * : Twins: General Info ([place]er) documented in this [facility] note No data available for this section [facility] (narrative)* Consultation (Routine) Status Reason Specialty Diagnoses / Procedures Referred By Contact Referred To Contact Authorized Nutrition Diagnoses Diet controlled gestational diabetes mellitus (GDM) in second trimester Lelo Gallegos MD [address] [place] [id number] [facility] [address] [place] [address] [facility] for visit Narrative* Consultation (Routine) - Pending Review Specialty Diagnoses / Procedures Referred By Contac t Referred To Contact Gastroenterology Diagnoses Hemorrhoids, unspecified hemorrhoid type Germania Galaviz, QUALITY DIRECTOR [address] [place] [address] Holland Ann MD [address] [place] [address] Referral ID Status Reason Start Date Expiration Date V isits Requested Visits Authorized [id number] Pending Review 12/29/2020 01/14/2022 1 1 [facility] Assessments Diagnosis Accidental overdose of heroin, initial [...] FoundDocuments on File Type Date Recorded Patient Deep Tissue Massage Therapist Expl anation Advance Directives and Living Will Power of Shorts Sifter Documents on File Type Date Recorded Patient Deep Tissue Massage Therapist Expl anation Advance Directives and Living Will 06/14/2019 7:25 AM does not have 3/13/2 0 Latest Code Status on File Code Status Date Activated Date Inactivated Comments Full Code 06/15/2019 9:29 AM 06/17/2019 4:38 PM Full Code - Unverified 06/14/2019 8:35 AM 06/15/2019 9:29 AM Documents on File Type Date Recorded Patient Deep Tissue Massage Therapist Expl anation Advance Directives and Living Will 06/14/2019 7:25 AM does not have 3/13/2 0 Latest Code Status on File Code Status Date Activated Date Inactivated Comments Full Code 06/15/2019 9:29 AM 06/17/2019 4:38 PM Full Code - Unverified 06/14/2019 8:35 AM 06/15/2019 9:29 AM Documents on File Type Date Recorded Patient Deep Tissue Massage Therapist Expl anation Advance Directives and Living Will 06/20/2019 1:10 PM does not have 3/13/2 0 Documents on File Type Date Recorded Patient Deep Tissue Massage Therapist Expl anation ACP-Advance Directive ACP-Power of Shorts Sifter Documents on File Type Date Recorded Patient Deep Tissue Massage Therapist Expl anation Advance Directives and Living Will 06/20/2019 1:10 PM does not have 3/13/2 0 Documents on File Type Date Recorded Patient Deep Tissue Massage Therapist Expl anation Advance Directives and Living Will 08/28/2020 5:58 AM does not have 3/13/2 0 Latest Code Status on File Code Status Date Activated Date Inactivated Comments Full Code 08/28/2020 11:15 AM 08/30/2020 11:53 AM Full Code 08/28/2020 5:31 AM 08/28/2020 11:07 AM Full Code 06/15/2019 9:29 AM 06/17/2019 4:38 PM Documents on File Type Date Recorded Patient Deep Tissue Massage Therapist Expl anation Advance Directives and Living Will 08/28/2020 5:58 AM does not have 3/13/2 0 Latest Code Status on File Code Status Date Activated Date Inactivated Comments Full Code 08/28/2020 11:15 AM 08/30/2020 11:53 AM Full Code 08/28/2020 5:31 AM 08/28/2020 11:07 AM Full Code 06/15/2019 9:29 AM 06/17/2019 4:38 PM Documents on File Type Date Recorded Patient Deep Tissue Massage Therapist Expl anation Advance Directives and Artur perkins Will 05/15/2021 12:00 AM Latest Code Status on File Code Status Date Activated Date Inactivated Comments Full Code 10/05/2023 9:02 PM Hospital Course * Savita Stiles PA-C - 06/17/2019 10:12 AM EDT [facility] DISCHARGE SUMMARY Tia Levin Account: [id number] Admitted: 06/14/2019 Discharge Date/Time: 06/17/19 / 10:12 [...] pathology noted. Patient transferred to [facility] 06/14/2019 for further treatment and evaluation. GI followedwith recommendations as discussed. Patient was stable for discharge home on 06/17/19. 1. [facility] [...] chart for all vitals, diagnostic data, and bi consultant notes. I discussed patient's case with Dr. Gregorio, Dr. Hay (GI) and RN. Discharge Medications Medication List ASK your doctor about these medications naltrexone microspheres Commonly known as: VivitroL Inject 380 (three hundred eighty) mg into the shoulder, thigh, or buttocks every 30 (thirty) days . Physician(s) Family: Physician No, Phone: None, Address: [facility] Follow Up: Javier Hay MD [address] [facility] [address] Follow up Repeat weekly CBC, CMP and PT/INR for the next 3-4 weeks then follow up out patient with Dr. Hay. Laboratory Follow Up by [facility]: Weekly labs for CBC, CMP, PT/INR Additional Information: Patient seen and examined day of discharge. For more information regarding patient's care, including complete radiology reports, please contact [facility] at Patient instructions, including activity, [...] PA-C. Agree with plan as below. Tia Lvein is a 29 y.o. female with a history of amphetamine and heroine use who presented to [facility] 06/14/19 with complaints of abdominal pain and nausea. OLH AST 1116 ALT 665 Alk phos 255 T bili 6.5 Lipase 8. CTAP revealed pericholecystic fluid vs GB wall thickening, no gallstones or hepatic pathology noted. Patient transferred to [facility] 06/14/2019 for further treatment and evaluation. LFTs [...] 1:16 PM EDT RESOURCES FOR PRIMARY CARE [facility] Closed Opens tomorrow [address], [place] [address] [place] [address] [place] [address] DIRECTIONS WEBSITE [facility]-In [facility] Closed Opens tomorrow 11 AM [address], [place] [address] documented in this encounter* Instructions* Adia Dillon, [...] Opioid Use Disorder: Medication-Assisted Treatment: General Info ([place] Islander) documented in this encounter* Attachments The following attachments cannot be sent through Care Everywhere. * Bacterial Vaginosis ([place] Islander) * Trichomoniasis ([place]er) documented in this encounter* Attachments The following attachments cannot be sent through Care Everywhere. * Dental Surgery: Generic: Post-op ([place]er) documented in this encounter* Attachments The following attachments cannot be sent through Care Everywhere. * Bronchitis ([place]er) * Pneumonia ([place]) documented in this encounter* Attachments The following attachments cannot be sent through Care Everywhere. * Poison Arabella - Sod - and Sumac ([place]er) documented in this encounter History of Present Illness * Javier Hay MD - 06/17/2019 9:59 AM EDT GASTROENTEROLOGY DAILY PROGRESS NOTE 1 Patient Name: Tia Levin MR #: [id number] Assessment/Plan: Elevated LFTs Assessment & Plan 29yo [...] Inpatient Progress Note 06/17/2019 Tia Levin 1990 [id number] Assessment/Plan: Tia M Levin is a 29 y.o. female with a history of amphetamine and heroine use who presented to [facility] 06/14/19 with complaints of abdominal pain and nausea. OLH AST 1116 ALT 665 Alk phos 255 T bili 6.5 Lipase 8. CTAP revealed pericholecystic fluid vs GB wall thickening, no gallstones or hepatic pathology noted. Patient transferred to [facility] 06/14/2019 for further treatment and evaluation. 1. [...] labs, diagnostics, vitals including pulse ox, and bi consultant/other provider recommendations. No acute issues overnight [...] 2 Patient Name: Tia Levin MR #: [id number] Assessment/Plan: Elevated LFTs Assessment & Plan 29yo [...] Inpatient Progress Note 06/16/2019 Tia Levin 1990 [id number] Assessment/Plan: Tia Levni is a 29 y.o. [...] pathology noted. Patient transferred to [facility] 06/14/2019 for further treatment and evaluation. 1. [...] recent labs, diagnostics, vitals including pulseox, and bi consultant/other provider recommendations. No acute issues overnight [...] 2 Patient Name: Tia Levin MR #: [id number] Assessment/Plan: Elevated LFTs Assessment & Plan 29yo [...] Radiology, Medications and Transcriptions Aisha Hare CNP [facility] (for staff use only) * Indra Pruitt MD - 06/15/2019 10:43 AM EDT Intacct Inpatient Progress Note 06/15/2019 Tia Levin 1990 [id number] Assessment/Plan: Tia Levin is a 29 y.o. female with a history of amphetamine and heroine use who presented to [facility] 06/14/19 with complaints of abdominal pain and nausea. OLH AST 1116 ALT 665 Alk phos 255 T bili 6.5 Lipase 8. CTAP revealed pericholecystic fluid vs GB wall thickening, no gallstones or hepatic pathology noted. Patient transferred to [facility] 06/14/2019 for further treatment and evaluation. 1. [...] home Expected Disposition: home Estimated discharge date: Subjective: Patient new to me. I reviewed [...] have a PCP and refused a case packer consult for assistance. Verified insurance and Rx. [...] spoke with patient about going to any [facility] to have her lab [...] daily (lemon water) Occasional iced coffee at [employer]. Was drinking a lot of Mountain Dew and Energy drinks prior to but stopped. Meals Away From Home - most days, fast food Past Medical History: Past Medical History: Diagnosis Date Anxiety Depression Infectious viral hepatitis hep c PTSD (Post-Traumatic Stress Disorder) History From: History obtained from patient and chart review. Current/Pertinent Medications: prescription for Current Outpatient Medications Ordered in [facility] Medication Sig Dispense Refill amoxicillin (AMOXIL) 250 [...] (BMI) of 40.0 or higher ([facility]) Farhat Vang MD [phone] Referral ID Status Reason Start Date Expiration Date Visits Requested Visits Authorized [id number] Authorized Specialty Services Required/Pat ient's Best Interest 04/16/2021 04/16/2022 1 1 Specialty Diagnoses / Procedures Referred By Contac t Referred To Contact Neurosurgery Diagnoses Chronic bilateral low back pain without sciatica Farhat Vang MD [address] [phone] Carina Kline MD [address] [place] [address] Referral ID Status Reason Start Date Expiration Date Visits Requested Visits Authorized [id number] Authorized Specialty Services Required/Pat ient's Best Interest 05/14/2021 05/14/2022 1 1 Specialty Diagnoses / Procedures Referred By Contac t Referred To Contact Rehabilitation Diagnoses Chronic bilateral low back pain without sciatica Farhat Vang MD [address] [phone] Referral ID Status Reason Start Date Expiration Date Visits Requested Visits Authorized [id number] Authorized Specialty Services Required/Pat ient's Best Interest 05/14/2021 05/14/2022 1 1 Specialty Diagnoses / Procedures Referred By Contac t Referred To Contact Diagnoses At risk for obstructive sleep apnea Farhat Vang MD [address] [phone] Gabriel Jacinto MD [address] [place] [address] Referral ID Status Reason Start Date Expiration Date Visits Requested Visits Authorized [id number] Authorized Specialty Services Required/Pat ient's Best Interest [...] in second trimester Lelo Gallegos MD [address] [place] [address] Nutrition Services [address] [place] [address] Reason Comments Gestational Diabetes Status Reason Specialty Diagnoses / Procedures Referred By Contact Referred To Contact Closed Endocrinology Diagnoses Diet controlled gestational diabetes mellitus (GDM) in second trimester Roslyn Stevenson MD [address] [place] [phone] Lelo Gallegos MD [address] [place] [address] Reason Comments Pharyngitis sore throat and head [...] Follow-up Specialty Diagnoses / Procedures Referred By Joey grimes Referred To Contact Nutrition Diagnoses Morbid obesity with body mass index (BMI) of 40.0 or higher ([facility]) Farhat Vang MD [address] [facility] [address] [place] [address] [address] [place] [phone] Referral ID Status Reason Start Date Expiration Date Visits Requested Visits Authorized [id number] Authorized Specialty Services Required/Pat emely's Best Interest 04/16/2021 04/16/2022 3 3 Reason [...] and Physical Note 06/14/19 Tia Levin 1990 [id number] Assessment/Plan: Tia Levin is a 29 y.o. female with a history of amphetamine and heroine use who presented to [facility] 06/14/19 with complaints of abdominal pain and nausea. OL AST 1116 ALT 665 Alk phos 255 T bili 6.5 Lipase 8. CTAP revealed pericholecystic fluid vs GB wall thickening, no gallstones or hepatic pathology noted. Patient transferred to [facility] 06/14/2019 for further treatment and evaluation. 1. [...] pathology noted. Patient transferred to [facility] 06/14/2019 for further treatment and evaluation. Patient [...] labs, diagnostics, vitals including pulse ox, and bi consultant/other provider recommendations. Discussed with collaborating physician [...] file Gets together: Not on file Attends shinto service: Not on file Active member of [...] 06/14/19 1037 INR 1.3* Associated attestation - Edmond, Indra Castro MD - 06/14/2019 3:13 PM EDT I saw and evaluated the patient independently. Discussed case with Carli Sims PA-C. I personally reviewed their note and agree with their history, exam, and plan of care. All laboratory and images personally reviewed. Chart reviewed, including documentation from previous hospitalizations and bi consultant recommendations as summarized below. Briefly, patient [...] Name: Tia Levin Admit Date: MR #: [id number] : 1990 Senior addendum 29 y/o F [...] and hx of presents to [facility] with jaundice and abdominal pain. -RUQ U/S [...] Fleming MD General Surgery, PGY 2 Pager# [phone] 06/16/2019, 10:43 AM After 5 PM and on Weekends, please page [phone] (Surgery Architectural Renderer cushion filler) History of Present Illness: Patient presented for [...] file Gets together: Not on file Attends shinto service: Not on file Active member of [...] patient. I discussed the case with the resident/SURVEYOR OIL WELL DIRECTIONAL and agree with the findings and plan as documented in his/her note and/or any note I supplied. Associated Order(s): IP CONSULT TO GASTROENTEROLOGY GASTROENTEROLOGY CONSULT NOTE 4 Patient Name: Tia Levin Admit Date: MR #: [id number] : 1990 Physicians: Physician Judy (Family); Brie [...] she has been in and out of correction over past 3mo. She denies EtOH. Denies [...] GB; no cholelithiasis; nonspecific GBW thickening w +Sohrt's sign, cannot exclude acalculus cholecystitis; nl CBD. [...] file Gets together: Not on file Attends shinto service: Not on file Active member of [...] Invalid input(s): CO2, LABALBU Aisha Hare CNP [facility] (for staff use only) Associated [...] reviewed, including documentation from previous hospitalizations and bi consultant recommendations as summarized below. Briefly, patient [...] Adia Dillon, MARK - 08/13/2019 7:43 PM EDTAdia Elena RN - 08/13/2019 7:43 PM Jimena Barnes RN - 08/13/2019 7:38 PM EDT ED Notes (unrecognized secti on and content) ED PROVIDER NOTE [facility] EMERGENCY DE[facility]MENT NAME: Tia Levin AGE: 29 y.o. : 1990 VISIT DATE: 08/13/2019 CSN: [id number] PCP: Physician No Chief Complaint Patient presents with Drug Overdose This is a 29-year-old female brought to the ER via EMS for evaluation. Time my exam patient is alert and oriented. She states she was in the [employer] parking lot bent over in her car [...] file Gets together: Not on file Attends shinto service: Not on file Active member of [...] nursing note reviewed. Exam conducted with a marketing information manager present (Nurses at the bedside). Constitutional: [...] people with drug addiction. [address] [facility] [address] Contact information for after-discharge care Follow-up information has not been specified. Adia Dillon CNP 08/13/191948 Pt brought in by [facility], states she was found by [facility] [...] section and content) DATE CREATED AUTHOR 08/21/2019 [facility] DATE CREATED AUTHOR AUTHOR'S ORGANIZ ATION 02/15/2021 [facility] DATE CREATED AUTHOR AUTHOR'S ORGANIZ ATION 05/18/2021 [facility] DATE CREATED AUTHOR AUTHOR'S ORGANIZ ATION 07/02/2021 [facility] DATE CREATED AUTHOR AUTHOR'S ORGANIZ ATION 07/09/2021 [facility] DATE CREATED AUTHOR AUTHOR'S ORGANIZ ATION 07/05/2022 [facility] DATE CREATED AUTHOR AUTHOR'S ORGANIZ ATION 05/14/2023 [facility] DATE CREATED AUTHOR AUTHOR'S ORGANIZ ATION 10/07/2023 Joslyn Godoy [facility] DATE CREATED AUTHOR AUTHOR'S ORGANIZ ATION 11/19/2023 [facility] DATE CREATED AUTHOR AUTHOR'S ORGANIZ ATION 11/25/2023 [facility] EPIC Ordered Prescriptions (unrec ognized [...]
Care Teams (unrecognized sec tion and content) [place] [employer] Relationship Specialty Start Date End Date No, Physician [facility] PCP - General 12/29/20 Germania Galaviz, QUALITY DIRECTOR [address] [place] [id number] Nurse Practitioner Obstetrics/Gynecology 11/01/19 [place] [facility] Relationship Specialty Start Date End Date No, Physician [facility] PCP - General 12/29/20 Germania Galaviz, QUALITY DIRECTOR [address] [place] [address] Nurse Practitioner Obstetrics/Gynecology 11/01/19 [place] [facility] Relationship Specialty Start Date End Date Farhat Vang MD [address] [address] PCP - General Family Medicine 04/16/21 Germania Galaviz, QUALITY DIRECTOR [address] [place] [address] Nurse Practitioner Obstetrics/Gynecology 11/01/19 Radha Pantoja MD [address] [facility] [address] [place] [address] Senior Technical Analyst Obstetrics/Gynecology 02/02/21 Yvonne Santos MD [address] [facility] [address] [place] [address] Senior Technical Analyst Obstetrics/Gynecology 02/02/21 Regla Dias, [facility] [address] [place] [address] Client Services Associate Obstetrics/Gynecology 02/02/21 [place] [employer] Relationship Specialty Start Date End Date Farhat Vang MD [address] [facility] [address] [place] [address] PCP - General Family Medicine 04/16/21 Germania Galaviz, QUALITY DIRECTOR [address] [facility] [address] [place] [address] Nurse Practitioner Obstetrics/Gynecology 11/01/19 Radha Pantoja MD [address] [place] [address] Senior Technical Analyst Obstetrics/Gynecology 02/02/21 Yvnone Santos MD [address] [place] [address] Senior Technical Analyst Obstetrics/Gynecology 02/02/21 LarissaRegla alcazar, [facility] [address] [place] [address] Client Services Associate Obstetrics/Gynecology 02/02/21 [place] [employer] Relationship Specialty Start Date End Date Farhat Vang MD [address] [facility] [address] [place] [address] PCP - General Family Medicine 04/16/21 Germania Galaviz, QUALITY DIRECTOR [address] [place] [address] Nurse Practitioner Obstetrics/Gynecology 11/01/19 Radha Pantoja MD [address] [place] [address] Senior Technical Analyst Obstetrics/Gynecology 02/02/21 Yvonne Santos MD [address] [facility] [place] [address] Senior Technical Analyst Obstetrics/Gynecology 02/02/21 LarissaRegla alcazar, [facility] [address] [place] [address] Client Services Associate Obstetrics/Gynecology 02/02/21 [place] [employer] Relationship Specialty Start Date End Date Linda Sheppard DO [address] [facility] [place] [address] PCP - General Family Medicine 09/04/22 [place] [employer] Relationship Specialty Start Date End Date Linda Sheppard DO [address] [facility] [place] [address] PCP - General Family Medicine 09/04/22 [place] [employer] Relationship Specialty Start Date End Date Linda Sheppard DO [address] [place] [address] PCP - General Family Medicine 09/04/22 FOR [...] BE BASED ON THE PRIMARY CLINICAL RECORDS. [employer] [facility]. provides no warranty or guarantee of the accuracy or completeness of information in this document.
[2023-11-26 11:18] VITALS: BP 118/70; PULSE 114; TEMP 36.3
[2023-11-26] MEDS: BETAMETHASONE ACE/BETAMETHASONE SOD PHOS 30 MG/5 ML 12 MG IM (11:20)
[2023-11-26 11:39] VITALS: BP 135/73; PULSE 115
== END 2023-11-26 11:44 | disposition home or self-care (01) ==
LOC: FBCO 11:01 → FBC 11:02
PROVIDERS: Visit Provider Obstetrics & Gynecology
DX: O30.003 Twin pregnancy, unspecified number of placenta and unspecified number of amniotic sacs, third trimester (principal); Z3A.00 Weeks of gestation of pregnancy not specified
CPT/HCPCS: 96372; J0702

== ENCOUNTER 2023-11-29 07:17 | Outpatient (OUT) | payer BC, SELFPAY ==
--- OUTSIDE RECORDS SUMMARY | 2023-11-29 07:21 | XMS_ITS | CCD ---
Author Organization [facility] ion Partnership [facility] Care Team Providers Care Potato Chip Fryer Name Role Phone Unavailable Primary Care Provider Unavailabl e No, Physician Primary Care Provider Unavailabl e HODA MADERA Unavailable Unavailable Primary Care Provider Unavailabl e No, Physician Primary Care Provider Unavailabl Germania Becerra Unavailable Roslyn Stevenson Unavailable [phone] Radha Pantoja Unavailable Yvonne Santos Unavailable [phone] Larissa, Regla Corina Unavailable [phone] No, Physician Primary Care Provider UnavailGermania Rodrigeuz CNP Unavailable Roslyn Stevenson MD Unavailable Radha Pantoja MD Unavailable Yvonne Santos MD Unavailable Larissa CNM, Regla Corina Unavailable Unavailable Primary Care Provider UnavailGermania Rodriguez CNP Unavailable Roslyn Stevenson MD Unavailable Radha Patnoja MD Unavailable Yvonne Santos MD Unavailable Larissa [...] SANTOS Admitting Unavailable Radha Pantoja MD Unavailable [phone] Yvonne Santos MD Unavailable Larissa KHOURY, Regla [...] Unavailable Linda Sheppard DO Primary Care Provider [phone] Jonathan Martinez Attending Unavailable Zac Fields Attending [...] day(s), # 14 tab(s), Refills(s) 0, Pharmacy: [facility], 160, cm, 05/11/23 21:53:00 EST, Height/Length [...] oral solution (2 sources) alpha-Adrenergic Agonist, Uncompetitive T-lxcfzv-C-aspartate Receptor Antagonist, Sigma-1 Agonist Start: End: take 5 mL by mouth four times daily as needed for cough brompheniramine-pse udoephedrine-DM (BROMFED DM) 2-30-10 MG/5ML syrup Take 5 mLs by mouth 4 times daily as needed for Congestion or Cough 240 mL 1 10/12/2021 11/11/2021 Active Start: 11-07-2020 End: 11-12-2020 take 5 mL by mouth three times daily as needed for cough sdgofhsidxgzkgd-aarwyhtonabpovp-YI 2-30- 10 MG/5ML syrup Take 5 mLs [...] 0, (swish and spit; do not swallow), [facility], 160, cm, 05/11/23 21:53:00 EST, [...] Active Dextromethorphan / guaiFENesin (2 sources) Uncompetitive B-pzovoh-N-asparta te Receptor Antagonist, Sigma-1 Agonist End: 06-24-2020 [...] day(s), # 15 tab(s), Refills(s) 0, Pharmacy: [facility], 160, cm, 05/13/23 11:33:00 EST, Height/Length [...] for Pain. 0 05/10/2023 Discontinued (LIST CLEANUP) [id number] 200 actuat albuterol 0.09 mg/actuat metered dose [...] Oral, Every 4 hours PRN, indigestion, Starting [facility] 06/14/19 at 0831 azithromycin 250 mg [...] Oral, Daily PRN, constipation, For constipation., Starting [facility] 06/14/19 at 0831 naloxone (NARCAN) injection [...] [Accidental overdose of heroin, initial encounter ([facility])] Episodic Substance-related disorders (1 source) Opioid [...] l admission (14 sources) Admission statuses; Translations: [longterm (current) use of opiate analgesic] Onset: 05-18-2019 [...] [Time] 29.8 s Normal 23.9-33.8 [facility] Comment on above: Result Comment: IV Heparin Therapy Range: 62.0-94.0 Performed By: #### P T, PTT, BMP, CDP, TROPI #### [facility] [address] [place] [address] [employer] Insulator: Guero Sandoval MD Basic Metabolic Profon 10-04 Anion gap [Moles/Vol] 13 mmol/L Normal 11-21 [facility] Comment on above: Performed By: #### P T, PTT, BMP, CDP, TROPI #### [facility] [address] [place] [address] [employer] Insulator: Guero Sandoval MD BUN/CRE Ratio Result cannot be calculated, Creatinine below linear range. Normal 11-24 [facility] Comment on above: Performed By: #### P T, PTT, BMP, CDP, TROPI #### [facility] [address] [place] [address] [employer] Insulator: Guero Sandoval MD Calcium [Mass/Vol] 8.7 mg/dL Normal 8.6-10.4 [facility] Comment on above: Performed By: #### P T, PTT, BMP, CDP, TROPI #### [facility] [address] [place], [place] [id number] [employer] Insulator: Guero Sandoval MD Chloride [Moles/Vol] 105 mmol/L Normal 98-107 [facility] Comment on above: Performed By: #### P T, PTT, BMP, CDP, TROPI #### [facility] [address] [place], [place] [id number] [employer] Insulator: Guero Sandoval MD CO2 [Moles/Vol] 18 mmol/L Low 20-31 [facility] Comment on above: Performed By: #### P T, PTT, BMP, CDP, TROPI #### [facility] [address] [place], [place] [id number] [employer] Insulator: Guero Sandoval MD Creatinine [Mass/Vol] mg/dL Low 0.5-0.9 [facility] Comment on above: Performed By: #### P T, PTT, BMP, CDP, TROPI #### [facility] [address] [place], [place] [id number] [employer]ulator: Guero Sandoval MD eGFR Can not be calculated Normal >60 [facility] Comment on above: Result Comment: These [...] P T, PTT, BMP, CDP, TROPI #### [facility] [address] [place], [place] [id number] [employer]ulator: Guero Sandoval MD Glucose [Mass/Vol] 111 mg/dL High 70-99 [facility] Comment on above: Performed By: #### P T, PTT, BMP, CDP, TROPI #### [facility] [address] [place], [place] [id number] [employer]ulator: Guero Sandoval MD Potassium [Moles/Vol] 3.8 mmol/L Normal 3.7-5.3 [facility] Comment on above: Performed By: #### P T, PTT, BMP, CDP, TROPI #### [facility] [address] [place] [address] [employer]ulator: Guero Sandoval MD Sodium [Moles/Vol] 136 mmol/L Normal 135-144 [facility] Comment on above: Performed By: #### P T, PTT, BMP, CDP, TROPI #### [facility] [address] [place] [address] [employer]ulator: Guero Sandoval MD Urea nitrogen [Mass/Vol] 6 mg/dL Normal 6-20 [facility] Comment on above: Performed By: #### P T, PTT, BMP, CDP, TROPI #### [facility] [address] [place] [id number] [employer]ulator: Guero Sandoval MD Brain Natri. Peptideon 10-04 Pro-BNP <36 Normal 0-300 [facility] Comment on above: Result Comment: An a ge-independent cutoff point of 300 pg/ml has a 98% negative predictive value excluding acute heart failure. Performed By: #### B SCIENTIFIC ARTIST, TROPI #### [facility] [address] [place] [address] [employer]ulator: Thor Hernández MD CBC with Diffon 10-05-2023 Abs. Basophil 0.04 k/uL Normal 0.00-0.20 [facility] Comment on above: Performed By: #### P T, PTT, BMP, CDP, TROPI #### [facility] [address] [place] [id number] [employer]ulator: Guero Sandoval MD Abs.Imm.Granulocyte 0.16 k/uL Normal 0.00-0.30 [facility] Comment on above: Performed By: #### P T, PTT, BMP, CDP, TROPI #### [facility] [address] [place], [place] [phone] [employer]ulator: Guero Sandoval MD Abs.Neutrophil (Seg) 8.05 k/uL High 2.5-7.0 [facility] Comment on above: Performed By: #### P T, PTT, BMP, CDP, TROPI #### [facility] [address] [place] [address] [employer]ulator: Guero Sandoval MD Basophils/100 WBC (Bld) 0 % Normal 0-2 [facility] Comment on above: Performed By: #### P T, PTT, BMP, CDP, TROPI #### [facility] [address] [place], [place] [phone] [employer]ulator: Guero Sandoval MD Eosinophils (Bld) [#/Vol] 0.08 10*3/uL Normal 0.00-0.4 0 [facility] Comment on above: Performed By: #### P T, PTT, BMP, CDP, TROPI #### [facility] [address] [place] [address] [employer]ulator: Guero Sandoval MD Eosinophils/100 WBC (Bld) 1 % Normal 0-5 [facility] Comment on above: Performed By: #### P T, PTT, BMP, CDP, TROPI #### [facility] [address] [place], [place] [phone] [employer]ulator: Guero Sandoval MD Erythrocyte distribution width (RBC) [Ratio] 13.1 % Normal 12.1-15.2 [facility] Comment on above: Performed By: #### P T, PTT, BMP, CDP, TROPI #### [facility] [address] [place] [id number] [employer]ulator: Guero Sandoval MD Hematocrit (Bld) [Volume fraction] 28.8 % Low 36.0-46.0 [facility] Comment on above: Performed By: #### P T, PTT, BMP, CDP, TROPI #### [facility] [address] [place] [id number] [employer]ulator: Guero Sandoval MD Hemoglobin (Bld) [Mass/Vol] 9.8 g/dL Low 12.0-16.0 [facility] Comment on above: Performed By: #### P T, PTT, BMP, CDP, TROPI #### [facility] [address] [place] [id number] [employer]ulator: Guero Sandoval MD Immature granulocytes/100 WBC (Bld) 2 % Normal 0-5 [facility] Comment on above: Performed By: #### P T, PTT, BMP, CDP, TROPI #### [facility] [address] [place] [phone] [employer]ulator: Guero Sandoval MD Lymphocytes (Bld) [#/Vol] 1.61 10*3/uL Normal 1.00-4.8 0 [facility] Comment on above: Performed By: #### P T, PTT, BMP, CDP, TROPI #### [facility] [address] [place] [id number] [employer]ulator: Guero Sandoval MD Lymphocytes/100 WBC (Bld) 15 % Normal 15-40 [facility] Comment on above: Performed By: #### P T, PTT, BMP, CDP, TROPI #### [facility] [address] [place] [id number] [employer]ulator: Guero Sandoval MD MCH (RBC) [Entitic mass] 27.7 pg Normal 26.0-34.0 [facility] Comment on above: Performed By: #### P T, PTT, BMP, CDP, TROPI #### [facility] [address] [place] [address] [employer] Insulator: Guero Sandoval MD MCHC (RBC) [Mass/Vol] 34.0 g/dL Normal 31.0-37.0 [facility] Comment on above: Performed By: #### P T, PTT, BMP, CDP, TROPI #### [facility] [address] [place] [address] [employer] Insulator: Guero Sandoval MD MCV (RBC) [Entitic vol] 81.4 fL Normal 80.0-100.0 [facility] Comment on above: Performed By: #### P T, PTT, BMP, CDP, TROPI #### [facility] [address] [place] [address] [employer] Insulator: Guero Sandoval MD Monocytes (Bld) [#/Vol] 0.77 10*3/uL Normal 0.00-1.00 [facility] Comment on above: Performed By: #### P T, PTT, BMP, CDP, TROPI #### [facility] [address] [place] [address] [employer] Insulator: Guero Sandoval MD Monocytes/100 WBC (Bld) 7 % Normal 4-8 [facility] Comment on above: Performed By: #### P T, PTT, BMP, CDP, TROPI #### [facility] [address] [place] [address] [employer] Insulator: Guero Sandoval MD Neutrophil (Seg) 75 % Normal 47-75 [facility] Comment on above: Performed By: #### P T, PTT, BMP, CDP, TROPI #### [facility] [address] [place] [address] [employer] Insulator: Guero Sandoval MD Platelet mean volume (Bld) [Entitic vol] 10.2 fL Normal 6.0-12.0 [facility] Comment on above: Performed By: #### P T, PTT, BMP, CDP, TROPI #### [facility] [address] [place] [address] (080) [employer]ulator: Guero Sandoval MD Platelets (Bld) [#/Vol] 275 10*3/uL Normal 140-450 [facility] Comment on above: Performed By: #### P T, PTT, BMP, CDP, TROPI #### [facility] [address] [place] [address] ([phone] [employer]ulator: Guero Sandoval MD RBC (Bld) [#/Vol] 3.54 10*6/uL Low 4.00-5.20 [facility] Comment on above: Performed By: #### P T, PTT, BMP, CDP, TROPI #### [facility] [address] [place] [address] [employer] Insulator: Guero Sandoval MD WBC (Bld) [#/Vol] 10.7 10*3/uL Normal 3.5-11.0 [facility] Comment on above: Performed By: #### P T, PTT, BMP, CDP, TROPI #### [facility] [address] [place] [address] [employer] And [employer] Insulator: Guero Sandoval MD CT CHEST PULMONARY EMBOLISM [...] Carlos Petersen MD 10/05/23 Final result Normal [facility] Liver Profileon 10-05-2023 Albumin [Mass/Vol] 3.0 g/dL Low 3.5-5.2 [facility] Comment on above: Performed By: #### L IVP #### [facility] [address] [place] [address] [employer] And [employer] Insulator: Guero Sandoval MD Alkaline Phos 74 U/L Normal 35-104 [facility] Comment on above: Performed By: #### L IVP #### [facility] [address] [place] [address] [employer] Insulator: Guero Sandoval MD ALT [Catalytic activity/Vol] U/L Low 5-33 [facility] Comment on above: Performed By: #### L IVP #### [facility] [address] [place], [place] [phone] [employer] Insulator: Guero Sandoval MD AST [Catalytic activity/Vol] 9 U/L Normal <32 [facility] Comment on above: Performed By: #### L IVP #### [facility] [address] [place], [place] [phone] [employer] Insulator: Guero Sandoval MD Bilirubin [Mass/Vol] 0.3 mg/dL Normal 0.3-1.2 [facility] Comment on above: Performed By: #### L IVP #### [facility] [address] [place], [place] [phone] [employer] And [employer] Insulator: Guero Sandoval MD Bilirubin, Indirect Can not be calculated Normal 0.0-1.0 [facility] Comment on above: Performed By: #### L IVP #### [facility] [address] [place], [place] [phone] [employer] Insulator: Guero Sandoval MD Bilirubin.indirect [Mass/Vol] mg/dL Normal <0.3 [facility] Comment on above: Performed By: #### L IVP #### [facility] [address] [place], [place] [id number] [employer] Insulator: Guero Sandoval MD Protein [Mass/Vol] 5.9 g/dL Low 6.4-8.3 [facility] Comment on above: Performed By: #### L IVP #### [facility] [address] [place], [place] [phone] [employer] Insulator: Guero Sandoval MD PTon 10-05-2023 INR Coag (PPP) [Relative time] 1.0 {INR} Normal [facility] Comment on above: Result Comment: Therapeutic Range: Moderate Anticoagulant Intensity: INR = 2.0-3.0 High Anticoagulant Intensity: INR = 2.5-3.5 Performed By: #### P T, PTT, BMP, CDP, TROPI #### [facility] [address] [place] [address] [employer] Insulator: Guero Sandoval MD PT Coag (PPP) [Time] 13.6 s Normal 11.5-14.2 [facility] Comment on above: Performed By: #### P T, PTT, BMP, CDP, TROPI #### [facility] [address] [place] [address] [employer] Insulator: Guero Sandoval MD Troponinon 10-05-2023 Troponin, High Sens <6 Normal 0-14 [facility] Comment on above: Result Comment: High Sensitivity Troponin values cannot be compared with other Troponin methodologies. Performed By: #### B SCIENTIFIC ARTIST, TROPI #### [address] [id number] [employer]ulator: Thor Hernández MD Troponin, High Sens <6 Normal 0-14 [facility] Comment on above: Result Comment: High Sensitivity Troponin values cannot be compared with other Troponin methodologies. Performed By: #### P T, PTT, BMP, CDP, TROPI #### [facility] [address] [place] [address] [employer] Insulator: Guero Sandoval MD UA w/Reflex Cultureon 2023 Bilirubin, SemiQt,Ur Negative Normal NEG [facility] Comment on above: Performed By: #### U MICAO, UAX #### [facility] [address] [place] [address] [employer] Insulator: Thor Hernández MD Blood, Urine Negative Normal NEG [facility] Comment on above: Performed By: #### U MICAO, UAX #### [facility] [address] [place] [address] [employer] Insulator: Thor Hernández MD Clarity (U) Cloudy Abnormal CLEAR [facility] Comment on above: Performed By: #### U MICAO, UAX #### [facility] [address] [place] [address] [employer] And [employer] Insulator: Thor Hernández MD Color (U) Yellow Normal YEL [facility] Comment on above: Performed By: #### U MICAO, UAX #### [facility] [address] [place] [address] [employer] Insulator: Thor Hernández MD Glucose Ql (U) 1+ mg/dL Abnormal NEG [facility] Comment on above: Performed By: #### U MICAO, UAX #### [facility] [address] [place] [address] [employer]ulator: Thor Hernández MD Ketones Ql (U) TRACE Abnormal NEG [facility] Comment on above: Performed By: #### U MICAO, UAX #### [facility] [address] [place] [address] [employer]ulator: Thor Hernández MD Leukocyte esterase Test strip Ql (U) Negative Normal NEG [facility] Comment on above: Performed By: #### U MICAO, UAX #### [facility] [address] [place] [address] [employer]ulator: Thor Hernández MD Nitrite,Ur Negative Normal NEG [facility] Comment on above: Performed By: #### U MICAO, UAX #### [facility] [address] [place] [address] [employer]ulator: Thor Hernández MD PH,Ur 6.0 Normal 5.0-8.0 [facility] Comment on above: Performed By: #### U MICAO, UAX #### [facility] [address] [place] [address] [employer] Insulator: Thor Hernández MD Protein Ql (U) TRACE Abnormal NEG [facility] Comment on above: Performed By: #### U MICAO, UAX #### [facility] [address] [place] [address] [employer] Insulator: Thor Hernández MD Spec. [place],Ur 1.028 Normal 1.005-1.030 [facility] Comment on above: Performed By: #### U MICAO, UAX #### [address] [address] [employer] Insulator: Thor Hernández MD Urobilinogen,Ur Normal Normal 0.0-1.0 [facility] Comment on above: Performed By: #### U MICAO, UAX #### [address] [address] [employer] And [employer] Insulator: Thor Hernández MD Urinalysis,Microon 4 Bacteria MODERATE Abnormal NONE [facility] Comment on above: Performed By: #### U MICAO, UAX #### [address] [address] [employer] Insulator: Thor Hernández MD Casts 2 TO 5 HYALINE Normal 0-8 [facility] Comment on above: Result Comment: Refe rence range defined for non-centrifuged specimen. Performed By: #### U MICAO, UAX #### [address] [address] [employer] Insulator: Thor Hernández MD Epithelial cells LM Ql (Urine sed) 20 TO 50 Normal 0-5 [facility] Comment on above: Performed By: #### U MICAO, UAX #### [address] [address] [employer] Insulator: Thor Hernández MD Urine RBC's 0 TO 2 Normal 0-4 [facility] Comment on above: Result Comment: Refe rence range defined for non-centrifuged specimen. Performed By: #### U MICAO, UAX #### [address] [address] [employer] And [employer] Insulator: Thor Hernández MD Urine WBC's 5 TO 10 Normal 0-5 [facility] Comment on above: Performed By: #### U KAYDEN UAX #### [facility] [address] [address] [employer] Insulator: Thor Hernández MD AFP, Maternalon 07-28-2023 Determined by Ultrasound Normal [facility] Comment on above: Performed By: #### T SH, FT4, FT3 #### [facility] [address] [place] [address] [employer] And [employer] Insulator: Thor Hernández MD #### AAFPM #### [facility] [address] [place] [address] [employer] And [employer] Insulator: Thor Hernández MD [facility] [address] [place], [place] [phone] [employer] Insulator: Tim Vizcarra MD Due Date SEE NOTE Normal [facility] Comment on above: Result Comment: Resu lts for Estimated Due Date: 01 06 24 Performed By: #### T SH, FT4, FT3 #### [facility] [address] [place] [address] [employer] And Frost Insulator: Thor Hernández MD #### AAFPM #### [address] [address] [employer] And [employer] Insulator: Thor Hernández MD [facility] [address] [place] [address] [employer] And [employer] Insulator: Tim Vizcarra MD Family History No Normal [facility] Comment on above: Performed By: #### T SH, FT4, FT3 #### [facility] [address] [place] [address] [employer] Insulator: Thor Hernández MD #### AAFPM #### [facility] [address] [place] [address] [employer] And [employer] Insulator: Thor Hernández MD [facility] [address] [place] [address] [employer] And [employer] Insulator: Tim Vizcarra MD Gestat Age (exact) 16 wks, 4 days Normal [facility] Comment on above: Performed By: #### T SH, FT4, FT3 #### [address] [address] [employer] And [employer] Insulator: Thor Hernández MD #### AAFPM #### [address] [address] [employer] And [employer] Insulator: Thor Hernández MD [address] [phone] [employer]ulator: Tim Vizcarra MD Ins Req Matern Diab No Normal [facility] Comment on above: Performed By: #### T SH, FT4, FT3 #### [address] [address] [employer] And [employer] Insulator: Thor Hernández MD #### AAFPM #### [address] [address] [employer] Insulator: Thor Hernández MD [address] [phone] [employer]ulator: Tim Vizcarra MD Interpretation Screen Neg Normal [facility] Comment on above: Result Comment: (NOT E) INTERPRETATION: SCREEN NEGATIVE for open spina bifida Neural Tube Defects (NTD) Negative Pre-Test Post-Test Cutoff Neural Tube Defects Risks 1:452 1:3230 1:103 Comments: The risk of an open neural tube defect is less than the twin screening cut-off. This test was developed and its performance characteristics determined by [employer]. It has not been cleared or approved by the [place] Food and Drug Administration. This test was performed in a CLIA certified laboratory and is intended for clinical purposes. Performed By: #### T SH, FT4, FT3 #### [address] [address] [employer]ulator: Thor Hernández MD #### AAFPM #### [facility] [address] [place] [address] [employer] Insulator: Thor Hernández MD [address] [phone] [employer]ulator: Tim Vizcarra MD [age] [facility] Comment on above: Performed By: #### T , FT4, FT3 #### [facility] [address] [place] [address] [employer]ulator: Thor Hernández MD #### AAFPM #### [facility] [address] [address] [employer]ulator: Thor Hernández MD [address] [address] [employer]: Tim Vizcarra MD Maternal Race Nonblack [facility] Comment on above: Performed By: #### T SH, FT4, FT3 #### [facility] [address] [place] [address] [employer]ulator: Thor Hernández MD #### AAFPM #### [address] [address] [employer]ulator: Thor Hernández MD [address] [address] [employer]ulator: Tim Vizcarra MD Maternal Weight 239.0 lbs. [facility] Comment on above: Performed By: #### T SH, FT4, FT3 #### [facility] [address] [place] [address] [employer]ulator: Thor Hernández MD #### AAFPM #### [facility] [address] [address] [employer] Insulator: Thor Hernández MD [address] [address] [employer]ulator: Tim Vizcarra MD MoM for AFP 1.71 Normal [facility] Comment on above: Performed By: #### T SH, FT4, FT3 #### [facility] [address] [place] [address] [employer] Insulator: Thor Hernández MD #### AAFPM #### [address] [address] [employer]ulator: Thor Hernández MD [facility] [address] [place] [address] [employer] Insulator: Tim Vizcarra MD Number of Fetuses Twins Normal [facility] Comment on above: Performed By: #### T SH, FT4, FT3 #### [address] [address] [employer]ulator: Thor Hernández MD #### AAFPM #### [address] [address] Heat And Frost Insulator: Thor Hernández MD [address] [id number] Heat And Frost Insulator: Tim Vizcarra MD Patient's AFP 46 ng/mL Normal [facility] Comment on above: Performed By: #### T SH, FT4, FT3 #### [address] [address] Heat And Frost Insulator: Thor Hernández MD #### AAFPM #### [address] [address] Heat And Frost Insulator: Thor Hernández MD [facility] [address] [place] [address] Heat And Frost Insulator: Tim Vizcarra MD Smoking Unknown Normal [facility] Comment on above: Performed By: #### T SH, FT4, FT3 #### [address] [address] Heat And Frost Insulator: Thor Hernández MD #### AAFPM #### [address] [address] Heat And Frost Insulator: Thor Hernández MD [address] [address] Heat And Frost Insulator: Tim Vizcarra MD Specimen See Note [facility] Comment on above: Result Comment: (NOT E) Initial sample Performed By: [facility] [address] [place] [address], [place] [address] [employer]: Morro Modi MD, PhD CLIA Number: [id number] Performed By: #### T SH, FT4, FT3 #### [address] [address] Heat And Frost Insulator: Thor Hernández MD #### AAFPM #### [address] [address] Heat And Frost Insulator: Thor Hernández MD [address] [id number] Heat And Frost Insulator: Tim Vizcarra MD [facility] 07-27-2023 Current Smoking INFORMATION NOT PROVIDED [facility] Comment on above: Performed By: #### T SH, FT4, FT3 #### [address] [address] Heat And Frost Insulator: Thor Hernández MD #### AAFPM #### [address] [address] Heat And Frost Insulator: Thor Hernández MD [address] [id number] Heat And Frost Insulator: Tim Vizcarra MD [facility] Comment on above: Performed By: #### T SH, FT4, FT3 #### [address] [address] Heat And Frost Insulator: Thor Hernández MD #### AAFPM #### [address] [address] Heat And Frost Insulator: Thor Hernández MD [facility] [address] [place] [address] Heat And Frost Insulator: Tim Vizcarra MD Diabetic Negative [facility] Comment on above: Performed By: #### T SH, FT4, FT3 #### [facility] [place] [address] [place] [address] Heat And Frost Insulator: Thor Hernández MD #### AAFPM #### [address] [address] Heat And Frost Insulator: Thor Hernández MD [address] [id number] Heat And Frost Insulator: Tim Vizcarra MD Donor Egg INFORMATION NOT PROVIDED [facility] Comment on above: Performed By: #### T SH, FT4, FT3 #### [address] [address] Heat And Frost Insulator: Thor Hernández MD #### AAFPM #### [address] [address] Heat And Frost Insulator: Thor Hernández MD [address] [id number] Heat And Frost Insulator: Tim Vizcarra MD Estimated Due Date 01/06/2024 [facility] Comment on above: Performed By: #### T SH, FT4, FT3 #### [facility] [address] [place] [address] Heat And Frost Insulator: Thor Hernández MD #### AAFPM #### [address] [address] Heat And Frost Insulator: Thor Hernández MD [address] [id number] Heat And Frost Insulator: Tim Vizcarra MD Family History Negative [facility] Comment on above: Performed By: #### T SH, FT4, FT3 #### [facility] [address] [place] [address] Heat And Frost Insulator: Thor Hernández MD #### AAFPM #### [facility] [place] [address] [place] [address] Heat And Frost Insulator: Thor Hernández MD [facility] [address] [place], [place] [id number] Heat And Frost Insulator: Tim Vizcarra MD In Vitro Fertalizat INFORMATION NOT PROVIDED [facility] Comment on above: Performed By: #### T SH, FT4, FT3 #### [facility] [place] [address] [address] Heat And Frost Insulator: Thor Hernández MD #### AAFPM #### [facility] [place] [address] [address] Heat And Frost Insulator: Thor Hernández MD [address] [address] Heat And Frost Insulator: Tim Vizcarra MD LMP date 2023 [facility] Comment on above: Performed By: #### T SH, FT4, FT3 #### [facility] [place] [address] [place] [address] Heat And Frost Insulator: Thor Hernández MD #### AAFPM #### [address] [address] Heat And Frost Insulator: Thor Hernández MD [facility] [address] [place], [place] [phone] Heat And Frost Insulator: Tim Vizcarra MD Maternal date 1990 [facility] Comment on above: Performed By: #### T SH, FT4, FT3 #### [facility] [address] [place] [address] Heat And Frost Insulator: Thor Hernández MD #### AAFPM #### [facility] [address] [place] [address] Heat And Frost Insulator: Thor Hernández MD [facility] [address] [place] [address] Heat And Frost Insulator: Tim Vizcarra MD Maternal Weight 239 Normal [facility] Comment on above: Performed By: #### T SH, FT4, FT3 #### [facility] [address] [place] [address] Heat And Frost Insulator: Thor Hernández MD #### AAFPM #### [address] [address] Heat And Frost Insulator: Thor Hernández MD [facility] [address] [place] [address] Heat And Frost Insulator: Tim Vizcarra MD Monochorionic Twins Positive Normal [facility] Comment on above: Performed By: #### T SH, FT4, FT3 #### [address] [address] Heat And Frost Insulator: Thor Hernández MD #### AAFPM #### [address] [address] Heat And Frost Insulator: Thor Hernández MD [facility] [address] [place] [address] Heat And Frost Insulator: Tim Vizcarra MD Patient Weight Units LBS Normal [facility] Comment on above: Performed By: #### T SH, FT4, FT3 #### [facility] [address] [place] [address] Heat And Frost Insulator: Thor Hernández MD #### AAFPM #### [address] [address] Heat And Frost Insulator: Thor Hernández MD [facility] [address] [place] [address] Heat And Frost Insulator: Tim Vizcarra MD Race (Maternal) Normal [facility] Comment on above: Performed By: #### T SH, FT4, FT3 #### [address] [address] Heat And Frost Insulator: Thor Hernández MD #### AAFPM #### [address] [address] Heat And Frost Insulator: Thor Hernández MD [address] [phone] Heat And Frost Insulator: Tim Vizcarra MD Repeat Specimen INFORMATION NOT PROVIDED [facility] Comment on above: Performed By: #### T SH, FT4, FT3 #### [address] [address] Heat And Frost Insulator: Thor Hernández MD #### AAFPM #### [address] [address] Heat And Frost Insulator: Thor Hernández MD [address] [phone] Heat And Frost Insulator: Tim Vizcarra MD Valproic/Carbamazep INFORMATION NOT PROVIDED [facility] Comment on above: Performed By: #### T SH, FT4, FT3 #### [address] [address] Heat And Frost Insulator: Thor Hernández MD #### AAFPM #### [address] [address] Heat And Frost Insulator: Thor Hernández MD [address] [address] Heat And Frost Insulator: Tim Vizcarra MD Thyroxine, Freeon 07-27-2023 Thyroxine, Free 1.0 ng/dL Normal 0.92-1.68 [facility] Comment on above: Performed By: #### T SH, FT4, FT3 #### [address] [address] Heat And Frost Insulator: Thor Hernández MD #### AAFPM #### [address] [address] Heat And Frost Insulator: Thor Hernández MD [address] [address] Heat And Frost Insulator: Tim Vizcarra MD Protein,Tot,Delavan Uron 2023 Creatinine [Mass/Vol] 273.0 mg/dL High 28.0-217.0 [facility] Comment on above: Performed By: #### U RTPRT #### [address] [address] Heat And Frost Insulator: Thor Hernández MD Tot Prot. Conc. 21 mg/dL Normal [facility] Comment on above: Result Comment: No n ormal range established. Performed By: #### U RTPRT #### [address] [address] Heat And Frost Insulator: Thor Hernández MD TP/Cre Ratio 0.08 Normal [facility] Comment on above: Performed By: #### U RTPRT #### [address] [address] Heat And Frost Insulator: Thor Hernández MD T3, Freeon 3 Free T3 [Mass/Vol] 3.40 pg/mL Normal 2.00-4.40 [facility] Comment on above: Performed By: #### T SH, FT4, FT3 #### [address] [address] Heat And Frost Insulator: Thor Hernández MD #### AAFPM #### [address] [address] Heat And Frost Insulator: Thor Hernández MD [employer] [facility] [address] [place] [address] Heat And Frost Insulator: Tim Vizcarra MD Thyroid Stim. Horm.on 2023 Thyroid Stim. Horm. <0.01 Low 0.27-4.20 [facility] Comment on above: Performed By: #### T SH, FT4, FT3 #### [facility] [address] [place], [place] [id number] Heat And Frost Insulator: Thor Hernández MD #### AAFPM #### [facility] [address] [place], [place] [phone] Heat And Frost Insulator: Thor Hernández MD [facility] [address] [place] [address] Heat And Frost Insulator: Tim Vizcarra MD ED Note-Physicianon 05-14-19 ED [...] see dentistry until she is cleared by DIRECTOR MATERNAL CHILD. She does not have an appointment for DIRECTOR MATERNAL CHILD to next week. She has no OB [...] day(s), # 15 tab(s), Refills(s) 0, Pharmacy: [facility], 160, cm, 05/13/23 11:33:00 EST, Height/Length [...] Oral, q6hr Follow-up With When Contact Information ezzai - how to [place] [facility] In 3 days 05/16/2023 EDT [address] [place] [address] Business (1) Additional Instructions: Dentistry follow-up Patient [...] made to ensure accuracy, however, inadvertently computerized cradle slide maker mistakes may be present. Appropriate healthcare PPE was used in evaluating this patient. Problem List/Past Medical History Ongoing Acute hepatitis C Anxiety Apnea, sleep Dental caries PCOS (polycystic ovarian syndrome) Historical No qualifying data Procedure/Surgical History Delivery. Medications Inpatient ampicillin-sulbacta m additive + Sodium Chloride 0.9% intravenous solution 100 (more content not included)... Normal [facility] Comment on above: Result Comment: Elec tronically Signed By: Grge Stratton PA-C\.br\Date and Time Signed: 05/13/23 12:45 EST\.br\Electronically Co-Signed By: Jonathan Martinez DO\.br\Date and Time Co-Signed: 05/14/23 07:40 EST Consent for Treatmenton Consent for Treatment [id number] EC#1.00TIFF Normal [facility] Discharge Instructionson Discharge Instructions [id number] 53#1.00TIFF Normal [facility] ED Clinical Summaryon 2023 ED Clinical Summary [place] [id number] ED Clinical Summary Person Information Name: TIA MONROE Maria [facility] Age: 33 Years : 1990 Sex: Female Language: Mauritian PCP: Linda Sheppard DO Marital Status: Visit [...] 13:02:19 05/13/2023 13:02:19 ADDRESS: [address] [id number] PHYS DOC NOTES: MEDICAL INFORMATION: Prescriptions Given: New Medications [facility], [address] [place], [place] [id number], [phone] oxycodone (oxyCODONE 5 mg Tab) 1 Tablets [...] Dental Abscess Follow up: With: Address: When: [address] [address] Business (1) In 3 days 05/16/2023 Comments: Dentistry follow-up DIAGNOSIS: Dental abscess Normal [facility] ED Patient Education Noteon 05-13-2023 ED [...] these instructions at home: Medicines ? Take ynlo-bqx-mqzmsqb and prescription medicines only as told by [...] mouth. ? (more content not included)... Normal [facility] ED Patient Summaryon 024 ED Patient Summary [address] [address] Patient Discharge Instructions Person Information Name: TIA MONROE Age: 33 Years Arrival Date: 05/13/2023 11:19:01 Discharge Diagnosis: Dental abscess Primary Care Physician: Linda Sheppard DO Provider Information Primary Provider: Jonathan Martinez DO Advanced Head Waiter/Waitress:Greg Stratton PA-C The exam and treatment you received in the Emergency Department were for an urgent problem and are not intended as complete care. It is important that you follow up with a doctor, nurse practitioner, or physician?s practice assistant for ongoing care. If your symptoms become worse or you do not improve as expected and you are unable to reach your usual health care provider, you should return to the Emergency Department. We are available 24 hours a day. TIA MONROE has been given the following list of patient education materials, prescriptions and follow-up instructions: Follow-up Instructions: With: Address: When: ezzai - how to [place] [address] [address] Business (1) In 3 [...] opioids can be used to help relieve mfjpqjfg-se-hyhsxw pain and are often prescribed following a [...] be struggling with addiction, tell your health sub acute care nurse and ask for guidance or call [facility] National Helpline at 9-011-7 (more content not included)... Normal [facility] Discharge Instructionson Discharge Instructions [id number]#[email or web address] Normal [facility] ED Clinical Summaryon 2023 ED Clinical Summary [place] [id number] ED Clinical Summary Person Information Name: TIA MONROE Maria Elena[facility] Age: 33 Years : 1990 Sex: Female Language: Mauritian PCP: Linda Sheppard DO Marital Status: Visit [...] 05/11/2023 23:59:00 05/11/2023 23:59:00 AD[address]ESS: [address] [facility] [id number] PHYS DOC NOTES: MEDICAL INFORMATION: Prescriptions Given: New Medications [facility], [address] [place], [place] [id number], [phone] amoxicillin-clavula cindi (Augmentin 875 mg oral tablet) [...] Medication PATIENT EDUCATION INFORMATION: Instructions: Dental Pain, Nepi-ad-Eykx Follow up: With: Address: When: Linda Sheppard DO, [address] [place] [address] In 3 days 05/14/2023 DIAGNOSIS: 1:Pain, dental; 2:Infected dental caries; 3:First trimester ; Periapical abscess without sinus Normal [facility] ED Note-Physicianon 05-12-19 ED Note-Physician Basic Information Time Seen: Violet Walters PA-C 05/11/2023 22:59 Chief Complaint pt arrives for c/o dental pain on the right upper side. states cannot see her denitist d/t being . pt states seen in [place] [facility] and started on amoxcillin. History of Present Illness Patient is a 7-week 33-year-old female with history of PCOS that presents to the ED with her for evaluation of dental pain. Patient says pain started on Tuesday. She localizes it to the right upper jaw, radiates into her face ear and cheek. She [facility] yesterday and was initiated on amoxicillin [...] day(s), # 14 tab(s), Refills(s) 0, Pharmacy: [facility], 160, cm, 05/11/23 21:53:00 EST, Height/Length Dosing, 110, kg, 05/11/23 21:53:00 EST, Weight Dosing chlorhexidine topical, 0.018 gm, 15 mL, Oral, BID, 480 mL, Refill(s) 0, (swish and spit; do not swallow), [facility], 160, cm, 05/11/23 21:53:00 EST, Height/Length Dosing, 110, kg, 05/11/23 21:53:00 EST, Weight Dosing (more content not included)... Normal [facility] Comment on above: Result Comment: Elec [...] these instructions at home: Medicines ? Take joik-fxq-pljqbzu and prescription medicines only as told by [...] to the area. Brushing your teeth ? [place] your teeth twice a day using a [...] when you eat or drink. ? Take frya-ezf-wlwncef and prescription medicines only as told by [...] Reviewed: 11/26/2020 Elsevier Patient Education ? 2022 [employer] Normal [facility] ED Patient Summaryon 024 ED Patient Summary [address] [address] Patient Discharge Instructions Person Information Name: TIA MONROE Age: 33 Years Arrival Date: 05/11/2023 21:25:54 Discharge Diagnosis: 1:Pain, dental; 2:Infected dental caries; 3:First trimester ; Periapical abscess without sinus Primary Care Physician: Linda Sheppard DO Provider Information Primary Provider: Zac Fields M.D. Advanced Head Waiter/Waitress:Violet Walters PA-C The exam and treatment you received in the Emergency Department were for an urgent problem and are not intended as complete care. It is important that you follow up with a doctor, nurse practitioner, or physician?s practice assistant for ongoing care. If your symptoms [...] Instructions: With: Address: When: Linda Sheppard DO [address] [place] [address], Amelie C, [facility] [address] [place], [place] [id number] In 3 days 05/14/2023 In the event that this physician does not participate in your insurance network, please consult with your insurance company to find a nearby participating provider. Patient Education Materials: Dental Pain, Tsvd-xe-Xqaw A MESSAGE TO ALL PATIENTS REGARDING OPIOIDS PRESCRIPTION OPIOIDS: WHAT YOU NEED TO KNOW Prescription opioids can be used to help relieve zhbzowlr-nk-gwjbsq pain and are often prescribed following a [...] be struggling with addiction, tell your health sub acute care nurse an (more content not included)... Normal [facility] Consent for Treatmenton Consent for Treatment [id number] 96#1.00TIFF [facility] Progesteroneon 12-28-2022 Progesterone 12.60 ng/mL Normal [facility] Comment on above: Result Comment: Female: Follicular phase <0.19 ng/mL Ovulation phase 0.06-4.14 ng/mL Luteal phase 4.11-14.5 ng/mL Postmenopausal <0.13 ng/mL Performed By: #### P NICKY #### [employer] [address] [place] [address] Heat And Frost Insulator: Thor Hernández MD Progesteroneon 11-24-2022 Progesterone 7.18 ng/mL High 0.0-0.15 [facility] Comment on above: Result Comment: Female: Follicular phase <0.19 ng/mL Ovulation phase 0.06-4.14 ng/mL Luteal phase 4.11-14.5 ng/mL Postmenopausal <0.13 ng/mL Performed By: #### P NICKY #### [employer] [address] [place] [address] Heat And Frost Insulator: Thor Hernández MD , Urineon HCG ( test) Ql (U) Negative NEGATIVE [facility] XR ANKLE RIGHT (MIN 3 VIEWS) on 09-04-2022 FINDINGS/IMPRESSION : No acute displaced fracture identified. Ankle mortise is symmetric. There is a 1 mm tiny calcified body which is remote appearing near the distal fibular tip. Minimal ankle soft tissue edema. [facility] EXAM: XR ANKLE RIGHT (MIN 3 VIEWS) INDICATION: Reason for exam:->swelling COMPARISON: None. TECHNIQUE: Radiographs as described above [facility] Bettye Johnson MD - 09/04/2022 EXAM: XR ANKLE RIGHT (MIN 3 VIEWS) INDICATION: Reason for exam:->swelling COMPARISON: None. TECHNIQUE: Radiographs as described above IMPRESSION: FINDINGS/IMPRESSION : No acute displaced fracture identified. Ankle mortise is symmetric. There is a 1 mm tiny calcified body which is remote appearing near the distal fibular tip. Minimal ankle soft tissue edema. [facility] Radiology Study observation (narrative) [facility] XR ANKLE RIGHT (MIN 3 VIEWS) Ordered By: Bettye Johnson on 09-04-2022 [facility] Work Phone: Coding Summary.on 07-09-2022 Coding Summary. CD:[id number] bWw+PGhlYWQ+IE0RGRH kD60npWMrwU7uG0CQJP lOSywgQVBQTElOSyIgb eShBM6bfAZbENXj IC8+LO0sWOSjOrftzFP ee3U1sQK3L13gzp0hNY kzeRJ3TVUbFnKxarfue 9jphEo0GIcdYxtvOzAf OIYkiF68YEP1uY30Yu3 4uDIiuMWzf8mxsEb4Ui RjOGTqHDL2iOrlJPpfc 4KtZUAnT54ybOGfz3M5 IGNvbGxhcHNlOyBlbXB 4bP8hLMccyyine6txns cqEod6cg65zSKvw9A0m XI9U9ZzxmW1QSHbzNSf QbbbfEGAwA4uhguvc1l qpzusGrGqJVLdGNo0FH f1AKNprZgwYnRhTM48B DC1GJLrtxAkT6SzKVNt eTviOmX5j2X9Vt0BQ1A IQrnhT1BOHAHMFUpluF Q+LQ60dl46H9QzXvymE cu5AWOyABC5wZL8eJ9c OZFuPRllb2W9tCD1K6J feaBfom5uy0shLKUmUA xaU58rmRLrn3N5SGYmd VQ1SGHiaDikDiEwaI15 Oyc+YKOtjOslp1VgNti tu1xan1fkoYq8TzopSJ QakhHhiPovQME8m3DsX n2fJYNwcSB2aNA2iM9k YwHeFgT7CNltD610LlX nnPGcRizrO98kF4OfxG A+HLBzVyz8VHQhbRjbV B6xI4EhXLSgqwvacOSk hThwIE9kBGXszmxoRTO qsD5fUBJwY7o5UjPiUo R3EDmmC3JzDFEatqkuB q10tQ6hCmGcPnV2CUen K3RhdlR1JITouWEqLMp gAAK2N04ez0S8DVYkQL JwGRL9oGI0qM9puVvxg jogbGVmdDsgdmVydGlj PEavNTioP872RSOvhUg nPkNvZGluZyBEYXRlOi AgMDUvMDUvMjAyMzwvd GQ+VHHaZCF1lHhfNGLa xRKiXHohDt2uwOideLi dOF4tPIOmzrevWUBypT 8aYRTasALgqZmrYR5vK XOckgdln584EnFhNZM8 EQJfxXUfO2KhoO0yLmA fLJXuNZBmG1SqtEHfRB gsU813LDkdEdE9ATKsz gPeA2BtYJEnsJsxCbR6 a4T0Ep4Md9YtupbtF1A jqREhLvPyEnqlRNi7G1 RkPjwvdHI+MZ20OGTpR F73YWu9JZW1kYxfZZpb ARObB4BnqU0hDgXeWTW kZGRkOyc+PHRhYmxlIH dpZHRoPScxMDAlJyBzd TabDI2uAg2kHAEsJXFq yZqjeEYcTtUpk5ceCDL oFQegXG9ovAduI3KxiL E6RMQes9b9Ix58U06mM 3JvdXA+GBYkaPY2wMH3 eY9dOvFsFpC4MEipV39 8QzVbqMUwJpgva7jgl4 qplLr7DhE2OHBsjoRkw HplMBM1n6RqRr56Z89c IHdpZHRoPSIxNSUiIHZ xjEzcme7gwR8pId6+PG CcvJO5hGI9oD4tBhUyZ cE4BGpaA956AnGmyLFd Dqkdg9xxa1ukuOv3SrA yVJBfeuUitIpsQJW9f5 YnKo23B1DjyHhmt4MiO wh0oo37uYRkb0X3tOS0 F2AoBRQrvmwdqGJahAx iCB3bEBOfxnedXEMubG 6rUTRgO0n8RrBtHqD3E NagV5LlpbG4HGHbbKXo UHGdnZJOiX6yvchlo8n frjaeQyRxSOCxGUa2CZ p6FWWtiVoiFuQoIDU2N xE7ZOR3pRUueZ4nvAkq ufivrG2iOme+DVY0yFE xlEXNDP2iKipskEH+PH RrSUK7pTzjXBinVOKlx E0jOZRmV6w7XfHtYeA4 ABzvL2UnktQ9YFSpvPR fLNCixYJXaF4leppst5 rppcqaMrZyBWTpDVs9K Jw8DZDhyYqeBeEzQKL5 NiT0BLV6rSFjxY6inJj svcmjlY8lAjh+QmlydG vnGMW0RKh6M1YfKku2F CBykTyvRA3epXJwRQgf Gf1pxMpidWhpIX0sQSU xdyjus284ApYzg4mpRZ QzqERePNpgDRY8S28fl 4X1UHRsQDCdEFT8tJI5 fS1hmTuvditeoQOowCv gdmVydGljYWwtYWxpZ2 77KGKfjGsnKjVjAXa3H 4CcIas9WCObeBmcEQ8c gQTsBVllBg6gbBfkcKz hAD4kSHIshyhvn292Do Byn0onYVChnMTqHPepF SF9A32cp8W2MDQpVSWe GFY9qYZ1jW0qfFosaxj gbGVmdDsgdmVydGljYW yqTUhaR198YGMeqXonZ uOxfRy5I0AnGgk4PMXw mVrpOB5ydGEpWPiqOe5 ldPvftPhaZF7mYMUhkg lvk596YtWma0cvRVEgx KGsVMxtFEP4G83zm5V6 BPAbIFOjHJG0aHH3wP9 hbGlnbjogbGVmdDsgdm GftDvqAIcrHOrcC716F HRvcDsnPlBhdGllbnQg NMnoVOv4R9ItZwegbFK +QX86NROmFG14sGIgvB Xmf9ecpVq6EhMnFWVoA BM5uNqkLHhkx4CsZRXp K17buOLcb6B4TZTgdCb wyYSnTbKyaYM6tM2lQI zvwnwig6xqctvjTynyb 5kmfn60dG46W00pYFah ZHRoPSIzMCUiIHZhbGl cwi9crY0gEo1+PGNvbC K4xJT5gQ7yJRZsMxA7H SdhO746IsFfhXPsUmcf d7ejy5uieXo9DsT5OZJ twfOifPayPOQ7k1DnKo 96D72fXAhlOCXtVOZyM PPgRQVfrRfsiy6xxL3t Ii8+LSUphZJ3gTL7cK5 fTaZdThC6MAldE599Qk AcoCMxGclkE30hG6Jvl XA+AJCbMyr8JTKezSoj OI2ixIDqAGzeKo6eGAR 8EeRxKdZxAOytQ5TeXE LdofhuforzoIF5QGPxX ACpdE08Nr9fiWgbKYAx lCKZgP0wezejh1btkwf tHyZjOOFdOUa1YDu6QO VliLutIhTmZBZ1EtC3N AV3iIEafR2vuYptmlyp gD4eA2CgDGCkjdnkZm4 4fD3sDsIzQmR3PQiiLj c+Vn0YHcYBMxeuFnHKB kRJRTwvdGQ+PHRkIHN0 dKsvOZjbWGOvqS3cOLM kH9g9QdUfAxM1DRibH1 TkEWIpxovaMb99sN6bE fRyZxP3NTrjS7VzxcD6 LSTygQHsUFzoLHX3H16 iz7D0KBIhZMYoUOC5eE B2oQ4hzCiexokgvJWbq DsgdmVydGljYWwtYWxp M743JQNpwGckIqSmCkK 3RtF3AZT8Y5PxKpa0HB ItvQntEO1kqCBsANnrP v3qaTfewSheUO9oSDIa flbfVIGgqI7xUOFydMJ jhUxiLC4oWKMyhzyht9 98OrCfKAF9QOPecGIlY 0IodR1aLiWsSXAmRCAp Y7UfdAWiGZkgC577FBi hTlK1VVXmrvTtF7ZuPD GrkPlbHbI9n2S0Se2eN iBZZWFyczwvdGQ+PHRk LKL7tEymBDivJCInpP7 gCICrC1c8NjCkTcR4DM jzO0SlUHXbgdhjKl01h O8cWrLwTmA5QBhyK4Kl piO6UPRssULzTEyuCRX 1F19cv8J5XDCaDGEbFS S8kMP2tN4yrTfavuxvw GVmdDsgdmVydGljYWwt NAcyF525TZNnsLanQyN lbWFsZTwvdGQ+PHRkIH V8hOynRMgeJANcrM7yN JQnD0b5BeSkSiJ8NMsf B5DkQKJskmgcLf79oS1 sElTdRpZ9MXziN9Nxyf D9GHJnzZGhBTlfIHC5Z 37ik1W8KWVnUAHiCDX5 jQZ1kP7qjUslhbpdzHZ mdDsgdmVydGljYWwtYW bsL178KKNfpJsdPeXpu W8gXTAaREefwAPebLmu dGQ+UP28iw34I9ZbGdz rQxo6OFWfVJH0jOX2qM 2gAPDzRYxqy8T0gIB1T 2TjymOiwu6by3ftXIAq LOgmG78udIFph4Y2NIG ziAV9XIJroTemSjCfwW 93Oyc+UZLdpIrtb0JlS sese1cxj9jhzCr5HkWh KKVmzkYggEwyKBV3t6W pYy29G01zHZfrKCFgLD PnGSHoDPRhyBvngh8jl G9wIi8+WCEdoWS6yWM3 pZ3mBfRzHvR4XRtoI37 1CiHxoWRuUfdvy2ntn4 xwsQy5RhDqAQNrfdZbu CnkRGL7i1OwAb96X6Qy fVubc3ZfFxe1ft77pAK lz8H1pIK5K4EoZCQxzc drnNDcsGqzJY5aZQZld hmbVYMqlB8vOXVvA2y5 HpUtAoA7DMcjV1YpxuX 6IGJvbGQgMTBwdCBUaW 7getprs5mbddgiSdGlU QYzXRq4BYv3XKPtlWfv QaOpUJK1HqD4HWG9iHJ sqH5yuCuyqjjltY6rZr c+DKn2e7mazHBdRG6um PO8PD64KW93nBUqo6A9 hHL1W4XnTWWbbhdyazq rwFJ2HPXtQHSxgJ58Nw 9idUqeJc6wOFFgVIU1M JSjeBAhM4CnzP6pFfPf ZZZoAHKfI3JiqXDuMWz vZ754BMaeXaP5DZTtkz HiD8CkLXIngNrlNzD0y 6V6Vx8ZCW05IB08CQ43 oETsr8J3oPT6C9OwVNS gczgvgqslqYS0UPAjKO LroA91Ty7jqEadIr8kE WQpAJP0RFGzqPCeZ0Zy sS6eBbJjTZWhFIAbV1R ifBRwPCxuC039NRjdEo S9UDJlmuMnE8TfZUCam LcoUoG9w5J7Cn6PQb94 LP69TS16pQGvc9F2nMW 1I3NyVDRxyjgloauscG I7OYRcFSDvbZ34Ye1qe HejTu7nAWVjTQU9UFTx tSAvG7BxeP0dOnAqSLF mZCDrJ8RvgYOwNYjtE2 17FVbgZdY0JIWfrmDrG 1EdFKCvqAhgSaQ7k2D5 Nr8YCEglitt1V1NmXlp [id number] (more content not included)... Normal [facility] Consultation Noteon 07-07-19 Consultation Note Patient: [...] Problems Acute hepatitis C / SNOMED CT 857852215 / Confirmed Anxiety / SNOMED CT 28159628 / Confirmed Apnea, sleep / SNOMED CT 875116537 / Confirmed Dental caries / SNOMED CT 493847860 / Confirmed PCOS (polycystic ovarian syndrome) / SNOMED CT 934560421 / Confirmed Histories Past Medical History: Active Dental caries ([id number]) Family History: No family history items have [...] Patient agrees with plan of care. Normal [facility] Comment on above: Result Comment: Elec tronically Signed By: Bing PEDRAZA, oTdd Lilly\.br\Date and Time Signed: 07/06/22 13:28 EDT DHEA SERUMon 07-04-2022 Dehydroepiandrosterone (DHEA) 220 ng/dL Normal 31-701 [facility] Comment on above: Performed By: #### D KAN. ####[facility] [address] [place], [place] [address]KaSelwyn Layneshivam Daniel DHEA-SULFATEon 06-30-2022 DHEA-Sulfate 106.0 ug/dL Normal 84.8-378.0 [facility] Comment on above: Performed By: #### D DEEPTI ####[facility] [address] [address]Dr. Nito Sanchez FSHon 06-30-2022 FSH 6.6 mIU/mL Normal [facility] Comment on above: Result Comment: Adul t Female: Follicular phase 3.5 - 12.5 Ovulation phase 4.7 - 21.5 Luteal phase 1.7 - 7.7 Postmenopausal 25.8 - 134.8 Performed By: #### L [facility] #### [facility] [address] [address] [address] Nito Sanchez LUTEINIZING HORMONE (LH)on 0 06-30-2022 LH 18.9 mIU/mL Normal [facility] Comment on above: Result Comment: Adul t Female: Follicular phase 2.4 - 12.6 Ovulation phase 14.0 - 95.6 Luteal phase 1.0 - 11.4 Postmenopausal 7.7 - 58.5 Performed By: #### L BCLH #### [facility] [address] [place] [address] Dr. Nito Sanchez PROLACTINon 06-30-2022 Prolactin 5.3 ng/mL Normal 4.8-23.3 [facility] Comment on above: Performed By: #### P ROLAC #### [facility] [address] [address] [address] Nito Sanchez CBC AUTO DIFFon 06-29-2022 BASO # 0.1 103/ul Normal 0.0-0.1 [facility] Comment on above: Performed By: #### C BC #### [facility] [address] [address] [address] Nito Sanchez Basophils/100 WBC (Bld) 0.5 % Normal 0.2-2.0 [facility] Comment on above: Performed By: #### C BC #### [facility] [address] [address] [address] Nito Sanchez EO # 0.2 103/ul Normal 0.0-0.7 [facility] Comment on above: Performed By: #### C BC #### [facility] [address] [place] [address] Dr. Nito Sanchez Eosinophils/100 WBC (Bld) 1.6 % Normal 0.9-7.0 [facility] Comment on above: Performed By: #### C BC #### [facility] [address] [place] [address] Dr. Nito Sanchez Erythrocyte distribution width (RBC) [Ratio] 13.6 % Normal 11.0-15.0 [facility] Comment on above: Performed By: #### C BC #### [facility] [address] [place] [address] Dr. Nito Sanchez Hematocrit (Bld) [Volume fraction] 39.7 % Normal 36.0-48.0 [facility] Comment on above: Performed By: #### C BC #### [facility] [address] [place] [address] Dr. Nito Sanchez Hemoglobin (Bld) [Mass/Vol] 13.1 g/dL Normal 12.0-16.0 [facility] Comment on above: Performed By: #### C BC #### [facility] [address] [place] [address] Dr. Nito Sanchez IG # 0.05 10e3/ul Critically high 0.00-0.03 [facility] Comment on above: Performed By: #### C BC #### [facility] [address] [place] [address] Dr. Nito Sanchez IG % 0.5 % Normal 0.0-0.5 [facility] Comment on above: Performed By: #### C BC #### [facility] [address] [place] [address] Dr. Nito Sanchez LYMPH # 2.6 103/ul Normal 1.2-3.[address] [facility] Comment on above: Performed By: #### C BC #### [facility] [address] [place] [address] Dr. Nito Sanchez Lymphocytes/100 WBC (Bld) 25.3 % Normal 20.5-60.0 [facility] Comment on above: Performed By: #### C BC #### [facility] [address] [place] [address] Dr. Nito Sanchez MANUAL DIFF REQ NO Normal [facility] Comment on above: Performed By: #### C BC #### [facility] [address] [place] [address] Dr. Nito Sanchez MCH (RBC) [Entitic mass] 27.1 pg Normal 26.7-34.0 [facility] Comment on above: Performed By: #### C BC #### [facility] [address] [place] [address] Dr. Nito Sanchez MCHC (RBC) [Mass/Vol] 33.0 g/dL Normal 29.9-35.2 [facility] Comment on above: Performed By: #### C BC #### [facility] [address] [place] [address] Dr. Nito Sanchez MCV (RBC) [Entitic vol] 82.2 fL Normal 81.0-99.0 [facility] Comment on above: Performed By: #### C BC #### [facility] [address] [place] [address] Dr. Nito Sanchez MONO # 0.5 103/ul Normal 0.3-0.8 [facility] Comment on above: Performed By: #### C BC #### [facility] [address] [place] [address] Dr. Nito Sanchez Monocytes/100 WBC (Bld) 5.0 % Normal 1.7-12.0 [facility] Comment on above: Performed By: #### C BC #### [facility] [address] [place] [address] Dr. Nito Sanchez NEUT # 6.9 103/ul Critically high 1.4-6.5 [facility] Comment on above: Performed By: #### C BC #### [facility] [address] [place] [address] Dr. Nito Sanchez Neutrophils/100 WBC (Bld) 67.1 % Normal 43.0-75.0 [facility] Comment on above: Performed By: #### C BC #### [facility] [address] [place] [address] Dr. Nito Sanchez Platelet mean volume (Bld) [Entitic vol] 10.0 fL Normal 9.5-13.5 [facility] Comment on above: Performed By: #### C BC #### [facility] [address] [place] [address] Dr. Nito Sanchez PLT 313 103/ul Normal 150-[address] [facility] Comment on above: Performed By: #### C BC #### [facility] [address] [place] [address] Dr. Nito Sanchez RBC 4.83 106/ul Normal 4.20-5.40 [facility] Comment on above: Performed By: #### C BC #### [facility] [address] [place] [address] Dr. Nito Sanchez WBC 10.3 103/ul Normal 4.0-11.0 [facility] Comment on above: Performed By: #### C BC #### [facility] [address] [place] [address] Dr. Nito Sanchez Consent for Treatmenton 06-06 Consent for Treatment [id number] 650#1.00CD:127 Normal [facility] FREE T4on 06-29-2022 Free T4 [Mass/Vol] 1.01 ng/dL Normal 0.76-1.46 [facility] Comment on above: Performed By: #### F T4 #### [facility] [address] [place] [address] Dr. Nito Sanchez GLYCOHEMOGLOBIN A1Con 2022 ADA RECOMMENDATION SEE BELOW Normal [facility] Comment on above: Result Comment: ADA RECOMMENDED LIMIT 4.0 - 6.0 ADA THERAPEUTIC TARGET < 7.0 ACTION SUGGESTED > 7.0 Performed By: #### A 1C #### [facility] [address] [place] [address] Dr. Nito Sanchez Glucose [Mass/Vol] 108 mg/dL Normal [facility] Comment on above: Performed By: #### A 1C #### [facility] [address] [place] [address] Dr. Nito Sanchez HbA1c (Bld) [Mass fraction] 5.4 % Normal 4.5-6.2 [facility] Comment on above: Performed By: #### A 1C #### [facility] [address] [place] [address] Dr. Nito Sanchez HIPAA Forms Officeon 023 HIPAA Forms Office [id number] 602#1.00CD:127 Normal [facility] Legal Correspondence Officeo n 06-29-2022 Legal Correspondence Office [id number] 270#1.00CD:127 Normal [facility] Legal Correspondence Office [id number] 787#1.00CD:127 Normal [facility] Office/Clinic Note-Physician on 06-29-2022 Office/Clinic Note-Physician [id number] 515#1.00CD:127 Normal [facility] Orders Officeon 06-29-2022 Orders Office [id number] 642#1.00CD:127 Normal [facility] PREG QUANT HCGon 06-29-2022 HCG QUANT 1 mIU/mL Normal [facility] Comment on above: Performed By: #### T BERNICE, PREGQNT #### [facility] [address] [place] [address] Dr. Nito Sanchez HCG RANGE SEE BELOW Normal [facility] Comment on above: Result Comment: 5-50 0.2-1 WEEK 50-500 1-2 WEEKS 100-5,000 2-3 WEEKS 500-10,000 3-4 WEEKS 1,000-50,000 4-5 WEEKS 10,000-100,000 5-6 WEEKS 15,000-200,000 6-8 WEEKS 10,000-100,000 2-3 MONTHS Performed By: #### T SH, PREGQNT #### [facility] [address] [id number] Nito Sanchez Patient Correspondenceon Patient Correspondence [id number] 946#1.00CD:127 Normal [facility] Patient Correspondence [id number] 137#1.00CD:127 Normal [facility] Patient Correspondence [id number] 273#1.00CD:127 Normal [facility] Patient Correspondence [id number] 879#1.00CD:127 Normal [facility] Patient Correspondence [id number] 956#1.00CD:127 Normal [facility] Patient History Officeon Patient History Office [id number] 983#1.00CD:127 Normal [facility] Patient History Office [id number] 721#1.00CD:127 Normal [facility] Radiology Outside Office Patient Information Coordinator yon 06-29-2022 Radiology Outside Office Copy [id number] 142#1.00CD:127 Normal [facility] TSHon 06-29-2022 TSH 0.848 uIU/mL Normal 0.358-3.[address] [facility] Comment on above: Performed By: #### T SH, PREGQNT #### [facility] [address] [address] [address] Nito Sanchez US PELVIS AND TRANSVAGon [...] by: BETTYE DANIELS Date: 2022-06-29 15:17 Normal [facility] PAP ACOG PANEL 2: 30 to 65on 06-19-2022 . . Normal [facility] Comment on above: Result Comment: Perf ormed at: WB Performed By: #### 4 [id number] #### [facility] [address] [address] [address] Nito Sanchez Age Gdln ACOG Testing 30-65 Normal [facility] Comment on above: Performed By: #### 4 [id number] #### [facility] [address] [address] [address] Nito Sanchez DIAGNOSIS: Comment Normal [facility] Comment on above: Result Comment: NEGA TIVE FOR INTRAEPITHELIAL LESION OR MALIGNANCY. Performed at: WB Performed By: #### 4 [id number] #### [facility] [address] [address] [address] Nito Sanchez HPV Aptima Negative Normal Negative [facility] Comment on above: Result Comment: This nucleic acid amplification test detects fourteen high-risk HPV types (16,18,31,33,35,39,45,51,52,56,58,59,66,68) without differentiation. Performed at: =G Performed By: #### 4 [id number] #### [facility] [address] [address] [address] Nito Sanchez HPV Genotype Reflex Comment Normal [facility] Comment on above: Result Comment: Crit eria not met, HPV Genotype not performed. Performed at: WB Performed By: #### 4 [id number] #### [facility] [address] [place] [address] Dr. Nito Sanchez Methodology: Comment Normal [facility] Comment on above: Result Comment: This liquid based ThinPrep(R) pap test was screened with the use of an image guided system. Performed at: WB Performed By: #### 4 [id number] #### [facility] [address] [place] [address] Dr. Nito Sanchez Note: Comment Normal [facility] [...] Performed at: WB Performed By: #### 4 [id number] #### [facility] [address] [place] [address] Dr. Nito Sanchez Performed by: Comment Normal [facility] Comment on above: Result Comment: Nanda Treadwell, High School Teacher (ASCP) Performed at: WB Performed By: #### 4 [id number] #### [facility] [address] [place] [address] Dr. Nito Sanchez Specimen adequacy: Comment Normal [facility] Comment on above: Result Comment: Sati sfactory for evaluation. Endocervical and/or squamous metaplastic cells (endocervical component) are present. Performed at: WB Performed By: #### 4 [id number] #### [facility] [address] [place] [address] MAXILLOFACIAL WO CONTRAST on 05-11-2022 Recent extraction of the right mandibular and maxillary second molar teeth with presence of air in the respective tooth sockets. No evidence of edema in the sublingual space or the buccal space Probable periapical abscess involving the right maxillary premolar tooth adjacent to the first molar tooth. [facility] RIS CONSOLIDATED EXAM: CT MAXILLOFACIAL [...] visualized intracranial contents show no acute process. [facility] Phil Romero MD - 05/11/2022 [...] tooth adjacent to the first molar tooth. [employer] Work Phone: Radiology Study observation (narrative) [employer] Work Phone: CT MAXILLOFACIAL WO CONTRAST Ordered By: Phil Mary on 05-11-2022 [employer] Work Phone: Urine Preg (Lab)on 3 Beta HCG ( test) Ql (U) Negative NEGATIVE Contents First HCG, Quantitative, on 03-29-2022 hCG Quant NINF [employer] Comment on above: Non-preg premeno <=5 Postmeno <=8 Male <=3 If HCG results do not concur with clinical observations, additional testing to confirm results is recommended. [facility] COVID-19, Rapidon 07-22-2021 SARS-CoV-2 (COVID-19) RNA KALPESH+probe Ql (Unsp spec) Not detected Not Detected [facility] Comment on above: Rapid NAAT: The specimen [...] management decisions. Fact sheet for Healthcare Providers: https://www.fda.gov/media/674873/download Fact sheet for Patients: https://www.fda.gov/media/233544/download Methodology: Isothermal Nucleic Acid Amplification Specimen Description .NASOPHARYNGEAL SWAB [facility] Strep Screen Group A Throato n 07-22-2021 S. pyogenes Ag Ql (Throat) Negative NEGATIVE [facility] Comment on above: Rapid Strep A negati ve. A negative Rapid Group A Strep Screen result does not rule out the possibility of Group A Streptococci in the specimen. A Group A Strep DNA test is available upon request. Source .THROAT SWAB [facility] MR LUMBAR SPINE WITHOUT CONTRAST EXAMINATION: [...] foraminal stenosis. 2. No fracture or spondylolisthesis. [facility] Workstation ID: [id number] Dictated by: JONATHAN LINARES on TueJun 18, 2021 11:51:00 AM EDT Transcribed by: ZULMA CARDENAS on TueJun 18, 2021 11:58:13 AM EDT Finalized by: JONATHAN LINARES on TueJun 18, 2021 12:35:45 PM EDT Normal [facility] Comment on above: Order Comment: Injur y/Trauma or Illness?:Illness/Other How long have you had these symptoms (acute/chronic)?:Chronic Reason for exam?:LBP AND bilat hip pain x years, nki Type of Exam?:Subsequent/Follow-up Additional signs and symptoms?:. CBC panel Auto (Bld)on 04-16 Erythrocyte distribution width (RBC) [Entitic vol] 14.0 % 11.6 - 14.8 % [facility] Hematocrit (Bld) [Volume fraction] 38.6 % 36.0 - 46.0 % [facility] Hemoglobin (Bld) [Mass/Vol] 12.1 g/dL 12.0 - 16.0 g/dL [facility] Interpretation and review of laboratory results Abnormal [facility] MCH (RBC) [Entitic mass] 25.4 pg Low 26. 0 - 34.0 pg [facility] MCHC (RBC) [Mass/Vol] 31.3 g/dL 31.0 - 37.0 g/dL [facility] MCV (RBC) [Entitic vol] 81.1 fL 80.0 - 100.0 fL [facility] Platelet mean volume (Bld) [Entitic vol] 10.0 fL 9.4 - 12.4 fL [facility] Platelets (Bld) [#/Vol] 379 10*3/uL [facility] RBC (Bld) [#/Vol] 4.76 10*6/uL [facility] WBC (Bld) [#/Vol] 9.85 10*3/uL [facility] Comprehensive metabolic 2000 panelon 04-16-2021 Albumin [Mass/Vol] 3.7 g/dL 3.2 - 5.2 g/dL [facility] ALP [Catalytic activity/Vol] 95 U/L 40 - 140 U/L [facility] ALT [Catalytic activity/Vol] 36 U/L 14 - 65 U/L [facility] Anion gap [Moles/Vol] 11 mmol/L 10 - 2 0 mmol/L [facility] AST [Catalytic activity/Vol] 22 U/L 0 - 45 U/L [facility] Bilirubin [Mass/Vol] 0.3 mg/dL 0.0 - 1 .3 mg/dL [facility] Calcium [Mass/Vol] 9.3 mg/dL 8.4 - 10. 2 mg/dL [facility] Chloride [Moles/Vol] 105 mmol/L 98 - 10 8 mmol/L [facility] Creatinine [Mass/Vol] 0.68 mg/dL 0.40 - 1.10 [facility] GFR/1.73 sq M.predicted CKD-EPI (S/P/Bld) [Vol rate/Area] 117 >=60 mL/min/1.73 m2 [facility] Glucose [Mass/Vol] 76 mg/dL 65 - 99 mg/dL [facility] HCO3 [Moles/Vol] 26 mmol/L 21 - 32 mmol/L [facility] Interpretation and review of laboratory results Normal [facility] Potassium [Moles/Vol] 4.2 mmol/L 3.5 - 5.1 mmol/L [facility] Protein [Mass/Vol] 7.5 g/dL 6.0 - 8.0 g/dL [facility] Sodium [Moles/Vol] 138 mmol/L 135 - 145 mmol/L [facility] Urea nitrogen [Mass/Vol] 13 mg/dL 8 - 25 mg/dL [facility] Urea nitrogen/Creatinine [Mass ratio] 19.1 mg/mg [facility] The eGFR should be used for monitoring renal function only and not for medication dosing. [facility] Lipid 1996 panelon 2 Cholesterol [Mass/Vol] 195 mg/dL 100 - 199 mg/dL [facility] Comment on above: National Cholesterol Education Program Guidelines: Cholesterol Desirable: <200 mg/dL Borderline High: 200-239 mg/dL High: greater than or equal to 240 mg/dL Cholesterol in HDL [Mass/Vol] 56 mg/dL 40 - 59 [facility] Comment on above: National Cholesterol Education Program Guidelines: HDL Cholesterol Low: <40 mg/dL Near Optimal: 40-59 mg/dL High: greater than or equal to 60 mg/dL Cholesterol in LDL [Mass/Vol] 109 mg/dL 10 - 130 mg/dL [facility] Comment on above: National Cholesterol Education Program Guidelines: LDL Cholesterol Optimal: <100 mg/dL Near Optimal/above Optimal: 100-129 mg/dL Borderline High: 130-159 mg/dL High: 160-189 mg/dL Very High: greater than or equal to 190 mg/dL Cholesterol non HDL [Mass/Vol] 139 mg/dL [facility] Comment on above: National Cholesterol Education Program Guidelines: NON HDL Cholesterol Desirable: <130 mg/dL Borderline High: 130-159 mg/dL High: 160-189 mg/dL Very High: > or = 190 mg/dL Cholesterol.total/Cholest elton in HDL [Mass ratio] 3.5 {ratio} ratio [facility] Comment on above: Female Cholesterol/H DL Ratio: Average risk: 4.4 1/2 average risk: 3.3 2 x average risk: 7.1 Interpretation and review of laboratory results Abnormal [facility] Triglyceride [Mass/Vol] 151 mg/dL High 30 - 150 mg/dL [facility] Comment on above: National Cholesterol Education Program Guidelines: Triglyceride Normal: <150 mg/dL Borderline High: 150-199 mg/dL High: 200-499 mg/dL Very High: greater than or equal to 500 mg/dL No Panel Informationon 04-16 [facility] TSH DL <= 0.005 mIU/L Qnon 0 04-16-2021 Interpretation and review of laboratory results Normal [facility] TSH Qn 1.04 m[IU]/L [facility] Basic Metabolic Panel w/ Ref ray to MGon 03-23-2021 Anion gap [Moles/Vol] 13 mmol/L 9 - 17 mmol/L [facility] Calcium [Mass/Vol] 8.8 mg/dL 8.6 - 10. 4 mg/dL [facility] Chloride [Moles/Vol] 104 mmol/L 98 - 10 7 mmol/L [facility] [employer] CO2 [Moles/Vol] 21 mmol/L 20 - 31 mmol/L [facility] Creatinine [Mass/Vol] 0.65 mg/dL 0.50 - 0.90 mg/dL [facility] GFR >60 >60 mL/min [facility] GFR Non- >60 >60 mL/min [facility] GFR/1.73 sq M.predicted MDRD (S/P/Bld) [Vol rate/Area] [facility] Comment on above: Average GFR for 30-3 9 years old: 107 mL/min/1.73sq m Chronic Kidney Disease: <60 mL/min/1.73sq m Kidney failure: <15 mL/min/1.73sq m eGFR calculated using average adult body mass. Additional eGFR calculator available at: http://www.[employer]/multiple_crcl_2012.htm GFR/1.73 sq M.predicted MDRD (S/P/Bld) [Vol rate/Area] NOT REPORTED [facility] Glucose [Mass/Vol] 104 mg/dL High 70 - 99 mg/dL [facility] Interpretation and review of laboratory results Abnormal [facility] th Potassium [Moles/Vol] 3.7 mmol/L 3.7 - 5.3 mmol/L [facility] Sodium [Moles/Vol] 138 mmol/L 135 - 144 mmol/L [facility] Urea nitrogen (BldV) [Mass/Vol] 15 mg/dL 6 - 20 mg/dL [facility] Urea nitrogen/Creatinine (Bld) [Mass ratio] 23 High [facility] CBC Auto Differentialon 03-07 Absolute Eos # 0.10 [facility] th Absolute Immature Granulocyte NOT REPORTED [facility] Absolute Lymph # 0.60 Low [facility] alth Absolute [place] # [facility] Basophils (Bld) [#/Vol] 0.00 10*3/uL [facility] Basophils/100 WBC (Bld) 0 % 0 - 2 % [facility] Differential Type YES [facility] ealth Eosinophils/100 WBC (Bld) 2 % 0 - 5 % [facility] Hematocrit (Bld) [Volume fraction] 34.6 % Low 36 - 46 % [facility] Hemoglobin.gastrointestin al spec 1 Ql (Stl) 11.7 g/dL Low 12.0 - 16.0 g/dL [facility] Immature Granulocytes NOT REPORTED 0 % [facility] Interpretation and review of laboratory results Abnormal [facility] Lymphocytes/100 WBC (Bld) 13 % Low 15 - 40 % [facility] MCH (RBC) [Entitic mass] 26.4 pg 26 - 34 pg [facility] MCHC (RBC) [Mass/Vol] 33.8 g/dL 31 - 3 7 g/dL [facility] MCV (RBC) [Entitic vol] 78.2 fL Low 80 - 100 fL [facility] Monocytes/100 WBC (Bld) 10 % High 4 - 8 % [facility] NRBC Automated NOT REPORTED per 100 WBC [facility] Platelet distribution width (Bld) [Ratio] 14.4 % 12.1 - 15.2 % [facility] Platelet Estimate NOT REPORTED [facility] Platelet mean volume (Bld) [Entitic vol] NOT REPORTED 6.0 - 12.0 fL [facility] Platelets (Bld) [#/Vol] 259 10*3/uL [facility] RBC (Bld) [#/Vol] 4.43 10*6/uL 4.0 - 5.2 m/uL [facility] RBC (Bld) [#/Vol] NOT REPORTED [facility] Segmented neutrophils/100 WBC (Bld) 75 % 47 - 75 % [facility] Segs [facility] ([facility]ld[facility] [#/Vol] 4.8 10*3/uL [facility] WBC (Bld) [#/Vol] NOT REPORTED [facility] COVID-19, Rapidon 03-23-2021 Interpretation and review of laboratory results Abnormal [facility] SARS-CoV-2 (COVID-19) RNA KALPESH+probe Ql (Unsp spec) Detected Abnormal Not Detected [facility] Comment on above: Rapid NAAT: The specimen [...] this assay. Fact sheet for Healthcare Providers: https://www.fda.gov/media/736702/download Fact sheet for Patients: https://www.fda.gov/media/411084/download Methodology: Isothermal Nucleic Acid Amplification Results reported to the appropriate Health Department Specimen Description .NASOPHARYNGEAL SWAB [facility] No Panel Informationon 03-23 Direct Exam Negative [facility] Rapid influenza A/B antigens on 03-23-2021 Special Requests NOT REPORTED [facility] Specimen Description .NASOPHARYNGEAL SWAB [facility] COVID-19, RapidOrdered By: Shayy Springer on 12-27-2020 SARS-CoV-2 (COVID-19) RNA KALPESH+probe Ql (Unsp spec) Not detected Not Detected [facility] Work Phone: Comment on above: Rapid NAAT: [...] management decisions. Fact sheet for Healthcare Providers: https://www.fda.gov/media/758263/download Fact sheet for Patients: https://www.fda.gov/media/372396/download Methodology: Isothermal Nucleic Acid Amplification Specimen Description .NASOPHARYNGEAL SWAB [employer] Phone: [employer] Phone: Strep Screen Group A ThroatO rdered By: Wayne Springer on 12-27-2020 S. pyogenes Ag IA Ql (Unsp spec) Rapid Strep A negative. A negative Rapid Group A Strep Screen result does not rule out the possibility of Group A Streptococci in the specimen. A Group A Strep DNA test is available upon request. [employer] Phone: Special Requests NOT REPORTED [employer] Phone: Specimen Description .THROAT [employer] Phone: [employer] Phone: XR SHOULDER RIGHT (MIN 2 VIE WS)Ordered By: Anuj Quinn on 11-20-2020 No acute fracture or traumatic malalignment. [employer] Phone: EXAMINATION: XR SHOULDER RIGHT (MIN 2 VIEWS), , 11/20/2020 9:30 PM EDT INDICATION: Reason for exam:->shoulder pain HISTORY: Ordering Provider Reason for Exam: Technologist Note: Additional: COMPARISON: None. TECHNIQUE: Right shoulder x-ray: 3 view(s). FINDINGS: No acute fracture. Glenohumeral and acromioclavicular joints are anatomically aligned. Joint spaces are preserved. Soft tissues are unremarkable. [employer] Phone: Ward, pn Incoming Radiant Results From [employer] - 11/20/2020 9:55 PM EDT EXAMINATION: XR [...] IMPRESSION: No acute fracture or traumatic malalignment. [employer] Work Phone: [employer] Work Phone: COVID-19, MOLECULARon 2020 SARS-CoV-2 (COVID-19) RNA KALPESH+probe Ql (Unsp spec) Not detected Normal Not Detected [facility] Comment on above: Order Comment: : COV ID-19 Lab Test Only (OP in UTM) Result Comment: This test was performed under the FDA's Emergency Use Authorization (EUA). Testing was performed using the Devika SARS-CoV-2 RT-PCR assay on the [employer]ia 6800 System. This test has not been approved for use in asymptomatic patients and its performance in this patient population has not been evaluated. Negative results do not rule out the presence of SARS-CoV-2/COVID-19. Fact sheets for this EUA can be found at the following links: For Healthcare Providers: https://www.fda.gov/media/854987/download For Patients: https://www.fda.gov/media/201617/download Performed By: #### L [id number] #### [facility] [address] [place] [address] Joe Rider M.D. [id number] HbA1c (Bld) [Mass fraction]O rdered By: Zelda Bautista on 07-09-2020 Interpretation and review of laboratory results Normal [facility] POC Hemoglobin [id number] By : Zelda Bautista on 07-09-2020 HbA1c (Bld) [Mass fraction] 5.2 % 4.0 - 6.0 % [facility] HbA1c (Bld) [Mass fraction]O rdered By: Lelo Gallegos on 06-09-2020 Interpretation and review of laboratory results Normal [facility] POC Hemoglobin [id number] By : Lelo Gallegos on 06-09-2020 HbA1c (Bld) [Mass fraction] 5.6 % 4.0 - 6.0 % [facility] CBC Auto Differentialon 03-08 Basophils (Bld) [#/Vol] 0.00 10*3/uL [place] Basophils/100 WBC (Bld) 0 % 0 - 2 % [place] Differential Type YES [place] Eosinophils (Bld) [#/Vol] 0.10 10*3/uL [place] Eosinophils/100 WBC (Bld) 1 % 0 - 5 % [place] Erythrocyte distribution width (RBC) [Ratio] 14.2 % 12.1 - 15.2 % [place] Hematocrit (Bld) [Volume fraction] 36.1 % 36 - 46 % [place] Hemoglobin (Bld) [Mass/Vol] 12.5 g/dL 12 - 16 g/dL [place] Interpretation and review of laboratory results Abnormal [place] Lymphocytes (Bld) [#/Vol] 2.00 10*3/uL [place] Lymphocytes/100 WBC (Bld) 14 % Low 15 - 40 % [place] MCH (RBC) [Entitic mass] 30.6 pg 26 - 34 pg [place] MCHC (RBC) [Mass/Vol] 34.5 g/dL 31 - 3 7 g/dL [place] MCV (RBC) [Entitic vol] 88.5 fL 80 - 100 fL [place] Monocytes (Bld) [#/Vol] 0.80 10*3/uL [place] Monocytes/100 WBC (Bld) 6 % 4 - 8 % [place] Platelet mean volume (Bld) [Entitic vol] NOT REPORTED 6 - 12 fL [place] Platelets (Bld) [#/Vol] 300 10*3/uL [place] Platelets (Bld) [#/Vol] NOT REPORTED [place] RBC (Bld) [#/Vol] 4.08 10*6/uL 4 - 5.2 m/uL [place] RBC morphology finding Nom (Bld) NOT REPORTED [place] Segmented neutrophils/100 WBC (Bld) 79 % High 47 - 75 % [place] Segs Absolute 10.70 [place] WBC (Bld) [#/Vol] 13.6 10*3/uL [place] WBC (Bld) [#/Vol] NOT REPORTED per 100 WBC [place] WBC Morphology NOT REPORTED [place], [place] COVID-19, PCRon 03-26-2020 SARS-CoV-2, Rapid Not Detected Not Detected [place] Comment on above: Rapid NAAT: The [...] management decisions. Fact sheet for Healthcare Providers: https://www.fda.gov/media/376222/download Fact sheet for Patients: https://www.fda.gov/media/394310/download Methodology: Isothermal Nucleic Acid Amplification Source .THROAT [place] Comprehensive Metabolic Pane l w/ Reflex to MGon 03-26-2020 Albumin [Mass/Vol] 3.3 g/dL Low 3.5 - 5.2 g/dL [place] Albumin/Globulin [Mass ratio] NOT REPORTED [place] ALP [Catalytic activity/Vol] 57 U/L 35 - 104 U/L [place] ALT [Catalytic activity/Vol] U/L Low 5 - 33 U/L [place] Anion gap [Moles/Vol] 11 mmol/L 9 - 17 mmol/L [place] AST [Catalytic activity/Vol] 9 U/L <32 [place] Bilirubin Ql (U) 0.10 mg/dL Low 0.3 - 1.2 mg/dL [place] Bun/Cre Ratio 21 High [place] Calcium [Mass/Vol] 10.2 mg/dL 8.6 - 10. 4 mg/dL [place] Chloride [Moles/Vol] 104 mmol/L 98 - 10 7 mmol/L [place] CO2 [Moles/Vol] 21 mmol/L 20 - 31 mmol/L [place] Creatinine [Mass/Vol] 0.42 mg/dL Low 0.5 - 0.9 mg/dL [place] GFR >60 >60 mL/min [place] GFR Non- >60 >60 mL/min [place] GFR/1.73 sq M predicted among non-blacks MDRD (S/P/Bld) [Vol rate/Area] NOT REPORTED [place] GFR/1.73 sq M predicted among non-blacks MDRD (S/P/Bld) [Vol rate/Area] [place] Comment on above: Average GFR for 30-3 9 years old: 107 mL/min/1.73sq m Chronic Kidney Disease: <60 mL/min/1.73sq m Kidney failure: <15 mL/min/1.73sq m eGFR calculated using average adult body mass. Additional eGFR calculator available at: http://www.[employer]/multiple_crcl_2012.htm Glucose [Mass/Vol] 100 mg/dL High 70 - 99 mg/dL [place] Interpretation and review of laboratory results Abnormal [place] Potassium [Moles/Vol] 3.8 mmol/L 3.7 - 5.3 mmol/L [place] Protein [Mass/Vol] 6.5 g/dL 6.4 - 8.3 g/dL [place] Sodium [Moles/Vol] 136 mmol/L 135 - 144 mmol/L [place] Urea nitrogen [Mass/Vol] 9 mg/dL 6 - 20 mg/dL [place] Otheron 03-26-2020 SARS-CoV-2 [place] Immature granulocytes (Bld) [#/Vol] NOT REPORTED [place] Urinalysis, reflex to micros copicon 03-26-2020 Bilirubin Urine Negative [facility]IVE [facility] [place] [place] Color, UA YELLOW YELLOW [place] Glucose, Ur Negative NEGATIVE [place] Ketones Ql (U) Negative NEGATIVE [place] Leukocyte esterase Test strip Ql (U) Negative NEGATIVE [place] Nitrite, Urine Negative NEGATIVE [place] pH, UA 7.0 [place] Protein (U) [Mass/Vol] Negative NEGATIVE [place] Specific [place], UA 1.010 [place] Turbidity UA CLEAR CLEAR [place] Urinalysis Comments [place] Urine Hgb Negative NEGATIVE [place] Urobilinogen, Urine Normal Normal [place] Wet Prep, Genitalon 11-20-19 Direct Exam MODERATE EPITHELIAL CELLS Abnormal [place] Direct Exam FEW TRICHOMONAS SEEN Abnormal [place] Direct Exam MODERATE BACTERIA Abnormal [place] Direct Exam Few epithelials coated with bacteria resembling clue cells. Abnormal [place] Direct Exam NO FUNGAL ELEMENTS SEEN [place] Interpretation and review of laboratory results Abnormal [place] Special Requests NOT REPORTED [place] Specimen Description .VAGINAL SPECIMEN [place] WBC (Bld) [#/Vol] FEW WBC SEEN Abnormal [place] Basic Metabolic Panelon 06-05 Anion gap [Moles/Vol] 15 mmol/L 10 - 2 0 mmol/L [facility] Calcium [Mass/Vol] 8.6 mg/dL 8.4 - 10. 2 mg/dL [facility] Chloride [Moles/Vol] 102 mmol/L 98 - 10 8 mmol/L [facility] Creatinine [Mass/Vol] 0.36 mg/dL Low 0.40 - 1.10 [facility] GFR/1.73 sq M predicted among non-blacks MDRD (S/P/Bld) [Vol rate/Area] The eGFR should be used for monitoring renal function only and not for medication dosing. [facility] GFR/1.73 sq M.predicted CKD-EPI (S/P/Bld) [Vol rate/Area] 146 >=60 mL/min/1.73 m2 [facility] Glucose [Mass/Vol] 102 mg/dL High 65 - 99 mg/dL [facility] HCO3 [Moles/Vol] 25 mmol/L 21 - 32 mmol/L [facility] Interpretation and review of laboratory results Abnormal [facility] Potassium [Moles/Vol] 4.1 mmol/L 3.5 - 5.1 mmol/L [facility] Sodium [Moles/Vol] 138 mmol/L 135 - 145 mmol/L [facility] Urea nitrogen [Mass/Vol] 5 mg/dL Low 8 - 25 mg/dL [facility] Urea nitrogen/Creatinine [Mass ratio] 13.9 mg/mg [facility] Hepatic Function Panelon Albumin [Mass/Vol] 3.3 g/dL 3.2 - 5.2 g/dL [facility] ALP [Catalytic activity/Vol] 253 U/L High 40 - 140 U/L [facility] ALT [Catalytic activity/Vol] 686 U/L High 0 - 40 U/L [facility] AST [Catalytic activity/Vol] 349 U/L High 0 - 45 U/L [facility] Bilirubin [Mass/Vol] 6.0 mg/dL High 0 - 1.3 mg/dL [facility] Bilirubin.conjugated [Mass/Vol] 5.1 mg/dL High 0 - 0.4 mg/dL [facility] Interpretation and review of laboratory results Abnormal [facility] Protein [Mass/Vol] 6.8 g/dL 6 - 8 g/dL [facility] alth Bilirubin, Directon 06-16-19 20 Bilirubin.conjugated [Mass/Vol] 5.4 mg/dL High 0 - 0.4 mg/dL [facility] Interpretation and review of laboratory results Abnormal [facility] CBCon 06-16-2019 Erythrocyte distribution width (RBC) [Entitic vol] 15.1 % High 11.6 - 14.8 % [facility] Hematocrit (Bld) [Volume fraction] 38.5 % 36 - 46 % [facility] Hemoglobin (Bld) [Mass/Vol] 12.9 g/dL 12 - 16 g/dL [facility] Interpretation and review of laboratory results Abnormal [facility] MCH (RBC) [Entitic mass] 29.1 pg 26 - 34 pg [facility] MCHC (RBC) [Mass/Vol] 33.5 g/dL 31 - 3 7 g/dL [facility] MCV (RBC) [Entitic vol] 86.9 fL 80 - 100 fL [facility] Nucleated RBC (Bld) [#/Vol] 0.00 10*3/uL [facility] Nucleated RBC/100 WBC (Bld) [Ratio] 0.0 % [facility] Platelet mean volume (Bld) [Entitic vol] 11.3 fL 9 - 15.5 fL [facility] Platelets (Bld) [#/Vol] 185 10*3/uL [facility] RBC (Bld) [#/Vol] 4.43 10*6/uL [facility] WBC (Bld) [#/Vol] 6.48 10*3/uL [facility] Comprehensive Metabolic Pane cayden 06-16-2019 Albumin [Mass/Vol] 3.3 g/dL 3.2 - 5.2 g/dL [facility] ALP [Catalytic activity/Vol] 217 U/L High 40 - 140 U/L [facility] ALT [Catalytic activity/Vol] 825 U/L High 0 - 40 U/L [facility] Anion gap [Moles/Vol] 14 mmol/L 10 - 2 0 mmol/L [facility] AST [Catalytic activity/Vol] 544 U/L High 0 - 45 U/L [facility] Bilirubin [Mass/Vol] 5.9 mg/dL High 0 - 1.3 mg/dL [facility] Calcium [Mass/Vol] 8.4 mg/dL 8.4 - 10. 2 mg/dL [facility] Chloride [Moles/Vol] 103 mmol/L 98 - 10 8 mmol/L [facility] Creatinine [Mass/Vol] 0.32 mg/dL Low 0.40 - 1.10 [facility] GFR/1.73 sq M predicted among non-blacks MDRD (S/P/Bld) [Vol rate/Area] The eGFR should be used for monitoring renal function only and not for medication dosing. [facility] GFR/1.73 sq M.predicted CKD-EPI (S/P/Bld) [Vol rate/Area] 152 >=60 mL/min/1.73 m2 [facility] Glucose [Mass/Vol] 92 mg/dL 65 - 99 mg/dL [facility] HCO3 [Moles/Vol] 26 mmol/L 21 - 32 mmol/L [facility] Interpretation and review of laboratory results Abnormal [facility] Potassium [Moles/Vol] 4.3 mmol/L 3.5 - 5.1 mmol/L [facility] Protein [Mass/Vol] 6.2 g/dL 6 - 8 g/dL [facility] alth Sodium [Moles/Vol] 139 mmol/L 135 - 145 mmol/L [facility] Urea nitrogen [Mass/Vol] 4 mg/dL Low 8 - 25 mg/dL [facility] Urea nitrogen/Creatinine [Mass ratio] 12.5 mg/mg [facility] Bilirubin, Directon 06-15-19 20 Bilirubin.conjugated [Mass/Vol] 4.7 mg/dL High 0 - 0.4 mg/dL [facility] Interpretation and review of laboratory results Abnormal [facility] CBCon 06-15-2019 Erythrocyte distribution width (RBC) [Entitic vol] 14.8 % 11.6 - 14.8 % [facility] Hematocrit (Bld) [Volume fraction] 38.5 % 36 - 46 % [facility] Hemoglobin (Bld) [Mass/Vol] 12.6 g/dL 12 - 16 g/dL [facility] MCH (RBC) [Entitic mass] 29.0 pg 26 - 34 pg [facility] MCHC (RBC) [Mass/Vol] 32.7 g/dL 31 - 3 7 g/dL [facility] MCV (RBC) [Entitic vol] 88.5 fL 80 - 100 fL [facility] Nucleated RBC (Bld) [#/Vol] 0.00 10*3/uL [facility] Nucleated RBC/100 WBC (Bld) [Ratio] 0.0 % [facility] Platelet mean volume (Bld) [Entitic vol] 11.0 fL 9 - 15.5 fL [facility] Platelets (Bld) [#/Vol] 155 10*3/uL [facility] RBC (Bld) [#/Vol] 4.35 10*6/uL [facility] WBC (Bld) [#/Vol] 5.74 10*3/uL [facility] Comprehensive Metabolic Pane cayden 06-15-2019 Albumin [Mass/Vol] 3.2 g/dL 3.2 - 5.2 g/dL [facility] ALP [Catalytic activity/Vol] 193 U/L High 40 - 140 U/L [facility] ALT [Catalytic activity/Vol] 888 U/L High 0 - 40 U/L [facility] Anion gap [Moles/Vol] 15 mmol/L 10 - 2 0 mmol/L [facility] AST [Catalytic activity/Vol] 667 U/L High 0 - 45 U/L [facility] Bilirubin [Mass/Vol] 5.2 mg/dL High 0 - 1.3 mg/dL [facility] Calcium [Mass/Vol] 8.2 mg/dL Low 8.4 - 10. 2 mg/dL [facility] Chloride [Moles/Vol] 103 mmol/L 98 - 10 8 mmol/L [facility] Creatinine [Mass/Vol] 0.36 mg/dL Low 0.40 - 1.10 [facility] GFR/1.73 sq M predicted among non-blacks MDRD (S/P/Bld) [Vol rate/Area] The eGFR should be used for monitoring renal function only and not for medication dosing. [facility] GFR/1.73 sq M.predicted CKD-EPI (S/P/Bld) [Vol rate/Area] 146 >=60 mL/min/1.73 m2 [facility] Glucose [Mass/Vol] 122 mg/dL High 65 - 99 mg/dL [facility] HCO3 [Moles/Vol] 22 mmol/L 21 - 32 mmol/L [facility] Interpretation and review of laboratory results Abnormal [facility] Potassium [Moles/Vol] 3.8 mmol/L 3.5 - 5.1 mmol/L [facility] Protein [Mass/Vol] 5.8 g/dL Low 6 - 8 g/dL [facility] Sodium [Moles/Vol] 136 mmol/L 135 - 145 mmol/L [facility] Urea nitrogen [Mass/Vol] 5 mg/dL Low 8 - 25 mg/dL [facility] Urea nitrogen/Creatinine [Mass ratio] 13.9 mg/mg [facility] [place] HEPATOBILIARY WO EJECTION FRACTIONon 06-15-2019 EXAMINATION: [...] tree, and small bowel are not visualized. [facility] Opacified liver with no visualization of the [...] regarding the presence or absence of cholecystitis. [employer] Work[employer] ID: [id number] [facility] Interface, Rad In [employer] - 06/15/2019 [...] regarding the presence or absence of cholecystitis. [employer] ID: [id number] [facility] APTTon 06-14-2019 aPTT Coag (Bld) [Time] 31.1 s [facility] [place], [place] Comment on above: PTT Therapeutic Range: 61.7-88.4 Therapeutic range corresponds to plasma heparin levels of 0.3-0.7 U/mL. Acetaminophen Levelon 2019 Acetaminophen [Mass/Vol] 9.1 [facility] Interpretation and review of laboratory results Normal [facility] Bilirubin, Directon 06-14-19 20 Bilirubin.conjugated [Mass/Vol] 4.3 mg/dL High 0 - 0.4 mg/dL [facility] Interpretation and review of laboratory results Abnormal [facility] CBC WITH AUTO DIFFERENTIALon 06-14-2019 Erythrocyte distribution width (RBC) [Entitic vol] 14.5 % 11.6 - 14.8 % [facility] Hematocrit (Bld) [Volume fraction] 34.6 % Low 36 - 46 % [facility] Hemoglobin (Bld) [Mass/Vol] 11.6 g/dL Low 12 - 16 g/dL [facility] Interpretation and review of laboratory results Abnormal [facility] MCH (RBC) [Entitic mass] 29.7 pg 26 - 34 pg [facility] MCHC (RBC) [Mass/Vol] 33.5 g/dL 31 - 3 7 g/dL [facility] MCV (RBC) [Entitic vol] 88.5 fL 80 - 100 fL [facility] Nucleated RBC (Bld) [#/Vol] 0.00 10*3/uL [facility] Nucleated RBC/100 WBC (Bld) [Ratio] 0.0 % [facility] Platelet mean volume (Bld) [Entitic vol] 10.8 fL 9 - 15.5 fL [facility] Platelets (Bld) [#/Vol] 172 10*3/uL [facility] RBC (Bld) [#/Vol] 3.91 10*6/uL Low [facility] WBC (Bld) [#/Vol] 7.28 10*3/uL [facility] CT ABDOMEN PELVIS W IV CONTR AST Additional Contrast? Noneon 06-14-2019 Ward, pn Incoming Radiant Results From [employer] - 06/14/2019 12:27 AM EDT EXAMINATION: CT [...] liver function panel and consider ultrasound imaging. [place] Pericholecystic fluid versus gallbladder wall thickening and additional periportal edema. There are no visualized stones in the gallbladder gallbladder and/or hepatic pathology are suspected. Correlate with liver function panel and consider ultrasound imaging. [place] EXAMINATION: CT ABDOMEN PELVIS W IV [...] structures demonstrate no acute or concerning abnormality. [facility] [place] COMPARISON IMPORTon 06-13 This order has been auto-finalized and does not contain a result. [facility] Comprehensive Metabolic Pane cayden 06-14-2019 Albumin [Mass/Vol] 3.0 g/dL Low 3.2 - 5.2 g/dL [facility] ALP [Catalytic activity/Vol] 183 U/L High 40 - 140 U/L [facility] ALT [Catalytic activity/Vol] 808 U/L High 0 - 40 U/L [facility] Anion gap [Moles/Vol] 16 mmol/L 10 - 2 0 mmol/L [facility] AST [Catalytic activity/Vol] 592 U/L High 0 - 45 U/L [facility] Bilirubin [Mass/Vol] 4.9 mg/dL High 0 - 1.3 mg/dL [facility] Calcium [Mass/Vol] 8.4 mg/dL 8.4 - 10. 2 mg/dL [facility] Chloride [Moles/Vol] 104 mmol/L 98 - 10 8 mmol/L [facility] Creatinine [Mass/Vol] 0.43 mg/dL 0.40 - 1.10 [facility] GFR/1.73 sq M predicted among non-blacks MDRD (S/P/Bld) [Vol rate/Area] The eGFR should be used for monitoring renal function only and not for medication dosing. [facility] GFR/1.73 sq M.predicted CKD-EPI (S/P/Bld) [Vol rate/Area] 138 >=60 mL/min/1.73 m2 [facility] Glucose [Mass/Vol] 79 mg/dL 65 - 99 mg/dL [facility] HCO3 [Moles/Vol] 21 mmol/L 21 - 32 mmol/L [facility] Interpretation and review of laboratory results Abnormal [facility] Potassium [Moles/Vol] 3.8 mmol/L 3.5 - 5.1 mmol/L [facility] Protein [Mass/Vol] 5.7 g/dL Low 6 - 8 g/dL [facility] Sodium [Moles/Vol] 137 mmol/L 135 - 145 mmol/L [facility] Urea nitrogen [Mass/Vol] 9 mg/dL 8 - 25 mg/dL [facility] Urea nitrogen/Creatinine [Mass ratio] 20.9 mg/mg High [facility] DRUGS OF ABUSE SCREEN, URINE on 06-14-2019 Amphetamines Ql (U) None Detected None Detected [facility] Comment on above: Urine Amphetamine Cu toff: < 1000 ng/mL = None Detected Barbiturates Screen Ql (U) None Detected None Detected [facility] Comment on above: Urine Barbiturates C utoff: < 200 ng/mL = None Detected Benzodiazepines Ql (U) None Detected None Detected [facility] Comment on above: Urine Benzodiazepine Cutoff: < 300 ng/mL = None Detected Cannabinoids Screen Ql (U) None Detected None Detected [facility] Comment on above: Urine Cannabinoids C utoff: < 50 ng/mL = None Detected Cocaine Ql (U) Positive Abnormal None Detected [facility] Comment on above: Urine Cocaine Cutoff : < 300 ng/mL = None Detected Interpretation and review of laboratory results Abnormal [facility] Methadone Screen Ql (U) None Detected Non e Detected [facility] Comment on above: Urine Methadone Cuto ff: < 300 ng/mL = None Detected Opiates Screen Ql (U) None Detected None Detected [facility] Comment on above: Urine Opiates Cutoff : < 300 ng/mL = None Detected Oxycodone Ql (U) None Detected None Detected [facility] Comment on above: Urine Oxycodone Cuto ff: < 100 ng/mL = None Detected Screen results should be used for treatment purposes only. Specimen will be kept for 2 weeks, if the sample is adequate. Confirmation testing can be initiated by calling the lab within 2 weeks. [facility] HEPATITIS PANEL, ACUTEon HAV IgM Ql (S) Negative Negative [facility] HBV core IgM Ql (S) Negative Negative [facility] HBV surface Ag Ql (S) Negative Negative [facility] HCV Ab Ql (S) Positive Abnormal Negative [facility] Comment on above: A positive antibody test requires additional follow-up testing, Hepatitis C Virus Quantitation, to determine if a person is currently infected with Hepatitis C. Interpretation and review of laboratory results Abnormal [facility] Test performed using [employer]VI[employer] immunoassay system [facility] Lactic Acid, Plasmaon 2019 Interpretation and review of laboratory results Normal [facility] Lactate [Moles/Vol] 0.8 mmol/L 0.6 - 2 mmol/L [facility] MORPHOLOGYon 06-14-2019 Platelets LM Ql (Bld) Normal Normal [facility] RBC morphology finding Nom (Bld) Normal [facility] MR MRCPon 06-14-2019 EXAMINATION: MR MRCP 03/15/2024 [...] Axial T1-weighted images were obtained in- and [id number]. Axial diffusion-weighted imaging was also performed. FINDINGS: The liver overall appears enlarged with the right hepatic lobe measuring 22.6 cm kfrwsbsm-jk-emaaole r. The spleen measures 14.6 cm cxdsdjde-mb-svcliwp r and is also mildly enlarged. There [...] the right kidney. Bowel pattern is nonobstructive. [facility] 1. Re-demonstration of diffuse periportal edema as well as significant circumferential gallbladder wall edema similar to that seen on prior CT study. 2. Mild hepatosplenomegaly. 3. No obvious gallstones. Negative for biliary or pancreatic ductal dilatation. Negative for choledocholithiasis . 4. Trace volume of abdominal ascites. [employer] Workstation ID: [id number] [facility] Interface, Rad In Asif Chavis - 06/14/2019 [...] Axial T1-weighted images were obtained in- and [id number]. Axial diffusion-weighted imaging was also performed. FINDINGS: The liver overall appears enlarged with the right hepatic lobe measuring 22.6 cm qgjysadj-wm-qvdkpiz r. The spleen measures 14.6 cm axptibsx-ay-rqjjyqu r and is also mildly enlarged. There [...] . 4. Trace volume of abdominal ascites. [employer] Workstation ID: [id number] [facility] Manual Differentialon 2019 Basophils (Bld) [#/Vol] 0.00 10*3/uL [facility] Basophils/100 WBC (Bld) 0.0 % [facility] Eosinophils (Bld) [#/Vol] 0.00 10*3/uL [facility] Eosinophils/100 WBC (Bld) 0.0 % [facility] Lymphocytes (Bld) [#/Vol] 3.28 10*3/uL [facility] Lymphocytes/100 WBC (Bld) 37.0 % [facility] Monocytes (Bld) [#/Vol] 0.44 10*3/uL [facility] Monocytes/100 WBC (Bld) 6.0 % [facility] Neutrophils (Bld) [#/Vol] 3.57 10*3/uL [facility] Neutrophils/100 WBC (Bld) 49.0 % [facility] Variant lymphocytes/100 WBC (Bld) 8.0 % [facility] PT/INRon 06-14-2019 INR Coag (PPP) [Relative time] 1.3 {INR} [facility] Interpretation and review of laboratory results Abnormal [facility] PT Coag (PPP) [Time] 15.5 s [facility] During the induction phase of oral anticoagulation, the INR may not reflect the anticoagulation status of the patient. Therapeutic ranges for INR's are: Most clinical situations: INR 2.0-3.0 Mechanical Prosthetic Valve: INR 2.5-3.5 Critical: INR >5.0 [facility] Protime-INRon 06-14-2019 INR Coag (PPP) [Relative time] 1.2 {INR} [facility] [place] Comment on above: * THERAPY INDICATIONS * REFERENCE RANGES Pts not on anti-coagulants 1.0 - 1.5 INR Low risk pts on anti-coagulants 2.0 - 3.0 INR High risk pts on anti-coagulants 2.5 - 3.5 INR Prevention of atrial thrombo-embolism 3.0 - 4.5 INR Interpretation and review of laboratory results Abnormal [facility] [place] [place] PT Coag (PPP) [Time] 11.7 s [facility] [place], [place] Salicylate Levelon 0 Interpretation and review of laboratory results Abnormal [facility] Salicylates [Mass/Vol] mg/dL Low 10 - 20 mg/dL [facility] URINALYSISon 06-14-2019 Bacteria Auto Ql (U) Rare Abnormal None Se en /hpf [facility] Bilirubin Ql (U) Positive Abnormal Negative [facility] Comment on above: False positive urine bilirubins can occur in the setting of a large amount of hemoglobin and secondary to medications including anti-inflammatory agents, rifampin, and pyridium. Clarity Refractometry automated (U) Clear Clear [facility] Color (U) Erica Abnormal Colorless, Yellow [facility] Epithelial cells.squamous Auto (Urine sed) [#/Area] 4 [facility] Glucose Auto test strip (U) [Mass/Vol] Negative Negative mg/dL [facility] Hemoglobin Auto test strip Ql (U) Negative Negative [facility] Interpretation and review of laboratory results Abnormal [facility] Ketones (U) [Mass/Vol] >=80 Abnormal Negat krystal mg/dL [facility] Leukocyte esterase Auto test strip Ql (U) Negative Negative [facility] Mucus Auto (Urine sed) [#/Area] Rare None Seen, Rare /lpf [facility] Nitrite Auto test strip Ql (U) Negative Negative [facility] pH (U) 6.0 [pH] [facility] Protein (U) [Mass/Vol] 30 Abnormal Negat krystal mg/dL [facility] Comment on above: False positive resul ts may occur in urines with large amounts of hemoglobin, pH greater than 8.0, contrast medium, or disinfectants including ammonium compounds. RBC Auto (Urine sed) [#/Area] 2 [facility] Specific gravity (U) [Rel density] 1.028 High [facility] Urobilinogen (U) [Mass/Vol] >=4.0 Abnormal <2.0 mg/dL [facility] WBC Auto (Urine sed) [#/Area] 2 [facility] Microscopic examination is performed on all urinalysis samples and only positive findings are reported. The test for blood on the chemical analytic portion of urinalysis may also be positive due to hemoglobinuria and myoglobinuria and if red blood cells are present they are quantified by microscopic examination. [facility] US ABDOMEN LIMITED STUDYon 0 06-14-2019 Interface, [...] liver likely small hemangioma. Workstation ID: [id number] [employer] EXAMINATION: US ABDOMEN LIMITED STUDY HISTORY: RUQ [...] measures 10.7 cm in length. No hydronephrosis. [facility] 1. Contracted gallbladder limits evaluation. No cholelithiasis identified. Nonspecific edematous gallbladder wall thickening and reported positive sonographic Short's sign, cannot exclude acalculus cholecystitis. No biliary ductal dilatation. 2. 1.3 cm echogenic lesion left lobe of the liver likely small hemangioma. Workstation ID: [id number] [facility] Amylaseon 06-13-2019 Amylase [Catalytic activity/Vol] 22 U/L Low 28 - 100 U/L [place] CBC Auto Differentialon Basophils (Bld) [#/Vol] 0.00 10*3/uL [place] Basophils/100 WBC (Bld) 1 % 0 - 2 % M [place] Differential Type YES [place], [place] Eosinophils (Bld) [#/Vol] 0.00 10*3/uL [place] Eosinophils/100 WBC (Bld) 0 % 0 - 5 % [place] Erythrocyte distribution width (RBC) [Ratio] 14.9 % 12.1 - 15.2 % [place] Hematocrit (Bld) [Volume fraction] 43.3 % 36 - 46 % [place] Hemoglobin (Bld) [Mass/Vol] 14.3 g/dL 12 - 16 g/dL [place] Lymphocytes (Bld) [#/Vol] 2.50 10*3/uL [place] Lymphocytes/100 WBC (Bld) 30 % 15 - 40 % [place] MCH (RBC) [Entitic mass] 28.8 pg 26 - 34 pg [place] MCHC (RBC) [Mass/Vol] 33.1 g/dL 31 - 3 7 g/dL [place] MCV (RBC) [Entitic vol] 87.2 fL 80 - 100 fL [place] Monocytes (Bld) [#/Vol] 0.70 10*3/uL [place] Monocytes/100 WBC (Bld) 8 % 4 - 8 % [place] Platelet mean volume (Bld) [Entitic vol] NOT REPORTED 6 - 12 fL [place] Platelets (Bld) [#/Vol] 203 10*3/uL [place] Platelets (Bld) [#/Vol] NOT REPORTED [place] RBC (Bld) [#/Vol] 4.97 10*6/uL 4 - 5.2 m/uL [place] RBC morphology finding Nom (Bld) NOT REPORTED [place] Segmented neutrophils/100 WBC (Bld) 61 % 47 - 75 % [place] Segs Absolute 5.20 [place] WBC (Bld) [#/Vol] 8.4 10*3/uL [place] WBC (Bld) [#/Vol] NOT REPORTED per 100 WBC [place] WBC Morphology NOT REPORTED [place] Comprehensive Metabolic Pane l w/ Reflex to MGon 06-13-2019 Albumin [Mass/Vol] 4.1 g/dL 3.5 - 5.2 g/dL [place] Albumin/Globulin [Mass ratio] NOT REPORTED [place] ALP [Catalytic activity/Vol] 255 U/L High 35 - 104 U/L [place] ALT [Catalytic activity/Vol] 1116 U/L High 5 - 33 U/L [place] Anion gap [Moles/Vol] 17 mmol/L 9 - 17 mmol/L [place] AST [Catalytic activity/Vol] 665 U/L High <32 [place] Bilirubin Ql (U) 6.52 mg/dL High 0.3 - 1.2 mg/dL [place] Bun/Cre Ratio 17 [place] Calcium [Mass/Vol] 10.1 mg/dL 8.6 - 10. 4 mg/dL [place] Chloride [Moles/Vol] 95 mmol/L Low 98 - 10 7 mmol/L [place] CO2 [Moles/Vol] 24 mmol/L 20 - 31 mmol/L [place] Creatinine [Mass/Vol] 0.82 mg/dL 0.5 - 0.9 mg/dL [place] GFR >60 >60 mL/min [place] GFR Non- >60 >60 mL/min [place] GFR/1.73 sq M predicted among non-blacks MDRD (S/P/Bld) [Vol rate/Area] [place] Comment on above: Average GFR for 20-2 9 years old: 116 mL/min/1.73sq m Chronic Kidney Disease: <60 mL/min/1.73sq m Kidney failure: <15 mL/min/1.73sq m eGFR calculated using average adult body mass. Additional eGFR calculator available at: http://www.[employer]/multiple_crcl_2012.htm GFR/1.73 sq M predicted among non-blacks MDRD (S/P/Bld) [Vol rate/Area] NOT REPORTED [place] Glucose [Mass/Vol] 134 mg/dL High 70 - 99 mg/dL [place] Interpretation and review of laboratory results Abnormal [place] Potassium [Moles/Vol] 3.7 mmol/L 3.7 - 5.3 mmol/L [place] Protein [Mass/Vol] 8.1 g/dL 6.4 - 8.3 g/dL [place] Sodium [Moles/Vol] 136 mmol/L 135 - 144 mmol/L [place] Urea nitrogen [Mass/Vol] 14 mg/dL 6 - 20 mg/dL [place] Drug screen multi urineon Amphetamine Screen, Ur Negative NEGATIVE [place] Comment on above: (Positive cutoff 500 ng/mL) Barbiturate Screen, Ur Negative NEGATIVE [place] Comment on above: (Positive cutoff 200 ng/mL) Benzodiazepine Screen, Urine Negative NEGATIVE [place] Comment on above: (Positive cutoff 150 ng/mL) Buprenorphine Urine NOT REPORTED NEGATIVE [place] Cannabinoid Scrn, Ur Negative NEGATIVE [place] Comment on above: (Positive cutoff 50 ng/mL) Cocaine Metabolite, Urine Positive Abnormal NEGATIVE [place] Comment on above: (Positive cutoff 150 ng/mL) Interpretation and review of laboratory results Abnormal [place] MDMA, Urine NOT REPORTED NEGATIVE [place] Methadone Screen, Urine Negative NEGATIVE [place] Comment on above: (Positive cutoff 200 ng/mL) Methamphetamine, Urine Negative NEGATIVE [place] Comment on above: (Positive cutoff 500 ng/mL) Opiates, Urine Positive Abnormal NEGATIVE [place] Comment on above: (Positive cutoff 100 ng/mL) Oxycodone Screen, Ur Negative NEGATIVE [place] Comment on above: (Positive cutoff 100 ng/mL) Phencyclidine, Urine Negative NEGATIVE [place] Comment on above: (Positive cutoff 25 ng/mL) Propoxyphene, Urine Negative NEGATIVE [place] Comment on above: (Positive cutoff 300 ng/mL) Test Information NOT REPORTED [place] Tricyclic Antidepressants, Urine Negative NEGATIVE [place] Comment on above: (Positive cutoff 300 ng/mL) Drug screen results are to be used for medical purposes only. All positive results are unconfirmed. Testing for employment or legal uses should be sent to a reference laboratory for confirmation. Lactic Acidon 06-13-2019 Lactate [Moles/Vol] 1.2 mmol/L 0.5 - 2. 2 mmol/L [place] Lipaseon 06-13-2019 Lipase [Catalytic activity/Vol] 8 U/L Low 13 - 60 U/L [place] Microscopic Urinalysison Amorphous, UA NOT REPORTED None [place] Bacteria, UA 2+ Abnormal None [place] Casts UA 5 TO 10 HYALINE /LPF [place] Casts UA 2 TO 5 WAXY /LPF [place] Crystals, UA NOT REPORTED None /HPF [place] Epithelial Cells UA LOADED /HPF [place] Interpretation and review of laboratory results Abnormal [place] Mucus, UA 4+ Abnormal [place] Other Observations UA NOT REPORTED NOT REQ. [place] RBC (U) [#/Vol] 5 TO 10 [place] Renal Epithelial, UA NOT REPORTED 0 /HPF [place] Trichomonas, UA NOT REPORTED None [place] WBC, UA 10 TO 20 0 /HPF [place] Yeast, UA NOT REPORTED None [place] - [place] Otheron 06-13-2019 Interpretation and review of laboratory results Abnormal [place] Immature granulocytes (Bld) [#/Vol] NOT REPORTED 0 % [place] , Urineon 0 Beta HCG ( test) Ql (U) Negative NEGATIVE [place] Urinalysis, reflex to micros copicon 06-13-2019 Bilirubin Urine 3+ Abnormal NEGATIVE [place] Color, UA BROWN Abnormal YELLOW [place] Glucose, Ur Negative NEGATIVE [place] Interpretation and review of laboratory results Abnormal [place] Ketones Ql (U) MODERATE Abnormal NEGATIVE [place] Leukocyte esterase Test strip Ql (U) 1+ Abnormal NEGATIVE [place] Nitrite, Urine Positive Abnormal NEGATIVE [place] pH, UA 5.0 [place] Protein (U) [Mass/Vol] 1+ Abnormal NEGATIVE [place] Specific [place], UA 1.020 [place] Turbidity UA CLEAR CLEAR [place] Urinalysis Comments [place] Urine Hgb TRACE Abnormal NEGATIVE [place] Urobilinogen, Urine 12 mg/dL Abnormal Normal [place] Vital Signs Date Time Vital Sign Value Performing Clinician Facility 10-05-2023 21:00-0400 Body temperature 99.61 [degF] Violet Juarez MD Work Phone: [facility] 10-05-2023 21:00-0400 Diastolic blood pressure 68 mm[Hg] Violet Juarez MD Work Phone: [facility] 10-05-2023 21:00-0400 Heart rate 93 /min Violet Juarez MD Work Phone: [facility] 10-05-2023 21:00-0400 Respiratory rate 16 /min Violet Juarez MD Work Phone: [facility] 10-05-2023 21:00-0400 SaO2% (BldA) [Mass fraction] 97 % Violet Juarez MD Work Phone: [facility] 10-05-2023 21:00-0400 Systolic blood pressure 114 mm[Hg] Violet Juarez MD Work Phone: [facility] 05-13-2023 11:27-0500 Body temperature 98.6 [degF] Jonathan Martinez [facility] 05-13-2023 11:27-0500 Diastolic blood pressure 78 mm[Hg] Jonathan Martinez [facility] 05-13-2023 11:27-0500 Heart rate 83 /min Jonathan Martinez [facility] 05-13-2023 11:27-0500 Respiratory rate 18 /min Jonathan Martinez [facility] 05-13-2023 11:27-0500 SaO2% (BldA) [Mass fraction] 97 % Jonathan Martinez [facility] 05-13-2023 11:27-0500 Systolic blood pressure 113 mm[Hg] Jonathan Martinez [facility] 05-11-2023 21:49-0500 Body temperature 98.06 [degF] [facility] 05-11-2023 21:49-0500 Diastolic blood pressure 84 mm[Hg] [facility] 05-11-2023 21:49-0500 Heart rate 105 /min [facility] 05-11-2023 21:49-0500 Respiratory rate 17 /min [facility] 05-11-2023 21:49-0500 SaO2% (BldA) [Mass fraction] 97 % [facility] 05-11-2023 21:49-0500 Systolic blood pressure 130 mm[Hg] Zac [facility] 05-10-2023 11:41-0500 Body height 160 cm Chet Berumen DO Work Phone: [employer] [employer] 05-10-2023 11:41-0500 Body mass index (BMI) [Ratio] 44.29 kg/m2 Chet Berumen Work Phone: [employer] [facility] [employer] 05-10-2023 11:41-0500 Body temperature 97.9 [degF] Chet Berumen DO Work Phone: [employer] [employer] 05-10-2023 11:41-0500 Body weight 113.4 kg Chet Berumen DO Work Phone: [employer] [employer] 05-10-2023 11:41-0500 Diastolic blood pressure 76 mm[Hg] Chet Berumen DO Work Phone: [employer] [facility] [facility] [employer] 05-10-2023 11:41-0500 Heart rate 94 /min Chet Berumen Work Phone: [employer] [facility] [employer] 05-10-2023 11:41-0500 Respiratory rate 18 /min Chet Berumen Work Phone: [employer] [facility] [employer] 05-10-2023 11:41-0500 SaO2% (BldA) [Mass fraction] 96 % Chet Berumen Work Phone: [employer] 05-10-2023 11:41-0500 Systolic blood pressure 146 mm[Hg] Chet Berumen DO Work Phone: [employer] 09-04-2022 11:27-0400 Body height 160 cm Erin Lacy MD Work Phone: [employer] 09-04-2022 11:27-0400 Body mass index (BMI) [Ratio] 44.99 kg/m2 Erin Lacy MD Work Phone: [employer] 09-04-2022 11:27-0400 Body temperature 98.2 [degF] Erin Lacy MD Work Phone: [employer] 09-04-2022 11:27-0400 Body weight 115.21 kg Erin Lacy MD Work Phone: [employer] 09-04-2022 11:27-0400 Diastolic blood pressure 71 mm[Hg] Erin Lacy MD Work Phone: [employer] 09-04-2022 11:27-0400 Heart rate 88 /min Erin Lacy MD Work Phone: [employer] 09-04-2022 11:27-0400 Respiratory rate 18 /min Erin Lacy MD Work Phone: [employer] 09-04-2022 11:27-0400 SaO2% (BldA) [Mass fraction] 97 % Erin Lacy MD Work Phone: [employer] 09-04-2022 11:27-0400 Systolic blood pressure 124 mm[Hg] Erin Lacy MD Work Phone: [employer] 06-29-2022 09:49-0400 Diastolic blood pressure 57 mm[Hg] Todd Bing [facility] 06-29-2022 09:49-0400 Heart rate 73 /min Todd Bing [facility] 06-29-2022 09:49-0400 Mean blood pressure 76 mm[Hg] Todd Bing [facility] 06-29-2022 09:49-0400 Respiratory rate 16 /min Todd Bing [facility] 06-29-2022 09:49-0400 Systolic blood pressure 113 mm[Hg] Todd Bing [facility] 05-19-2022 19:28-0400 Body height 160 cm Erin Lacy MD Work Phone: [employer] 05-19-2022 19:28-0400 Body mass index (BMI) [Ratio] 45.17 kg/m2 Erin Lacy MD Work Phone: [employer] 05-19-2022 19:28-0400 Body weight 115.67 kg Erin Lacy MD Work Phone: [employer] 05-19-2022 19:25-0400 Body temperature 98.29 [degF] Erin Lacy MD Work Phone: [employer] 05-19-2022 19:25-0400 Diastolic blood pressure 68 mm[Hg] Erin Lacy MD Work Phone: [employer] 05-19-2022 19:25-0400 Heart rate 78 /min Erin Lacy MD Work Phone: [employer] 05-19-2022 19:25-0400 Respiratory rate 16 /min Erin Lacy MD Work Phone: [employer] 05-19-2022 19:25-0400 SaO2% (BldA) [Mass fraction] 98 % Erin Lacy MD Work Phone: [employer] 05-19-2022 19:25-0400 Systolic blood pressure 110 mm[Hg] Erin Lacy MD Work Phone: [employer] 05-11-2022 19:17-0500 Body height 160 cm Anuj Quinn MD Work Phone: [employer] 05-11-2022 19:17-0500 Body mass index (BMI) [Ratio] 45.06 kg/m2 Anuj Quinn MD Work Phone: [employer] 05-11-2022 19:17-0500 Body temperature 98.01 [degF] Anuj Quinn MD Work Phone: [employer] 05-11-2022 19:17-0500 Body weight 115.39 kg Anuj Quinn MD Work Phone: [employer] 05-11-2022 19:17-0500 Diastolic blood pressure 91 mm[Hg] Anuj Quinn MD Work Phone: [employer] [facility] 05-11-2022 19:17-0500 Heart rate 78 /min Anuj Quinn MD Work Phone: [employer] 05-11-2022 19:17-0500 Respiratory rate 18 /min Anuj Quinn MD Work Phone: [employer] [facility] [employer] 05-11-2022 19:17-0500 SaO2% (BldA) [Mass fraction] 96 % Anuj Quinn MD Work Phone: [employer] 05-11-2022 19:17-0500 Systolic blood pressure 121 mm[Hg] Anuj Quinn MD Work Phone: [employer] 10-12-2021 18:31-0400 Heart rate 93 /min Rishabh Mancini MD Work Phone: [employer] 10-12-2021 18:31-0400 Respiratory rate 16 /min Rishabh Mancini MD Work Phone: [employer] 10-12-2021 18:31-0400 SaO2% (BldA) [Mass fraction] 97 % Rishabh Mancini MD Work Phone: [employer] 10-12-2021 18:12-0400 Body height 160 cm Rishabh Mancini MD Work Phone: [employer] 10-12-2021 18:12-0400 Body mass index (BMI) [Ratio] 47.12 kg/m2 Rishabh Mancini MD Work Phone: [employer] 10-12-2021 18:12-0400 Body temperature 99.19 [degF] Rishabh Mancini MD Work Phone: [employer] 10-12-2021 18:12-0400 Body weight 120.66 kg Rishabh Mancini MD Work Phone: [facility] [employer] 10-12-2021 18:12-0400 Diastolic blood pressure 77 mm[Hg] Rishabh [facility]ancini MD Work Phone: [facility] 10-12-2021 18:12-0400 Systolic blood pressure 126 mm[Hg] Rishabh Mancini MD Work Phone: [facility] 07-22-2021 10:38-0400 Body height 160 cm Clark Moser MD Work Phone: [facility] [employer] 07-22-2021 10:38-0400 Body mass index (BMI) [Ratio] 47.63 kg/m2 Clark Moser MD Work Phone: [facility] 07-22-2021 10:38-0400 Body temperature 97.3 [degF] Clark Moser MD Work Phone: [facility] 07-22-2021 10:38-0400 Body weight 121.97 kg Clark Moser MD Work Phone: [facility] 07-22-2021 10:38-0400 Diastolic blood pressure 88 mm[Hg] Clark Moser MD Work Phone: [facility] 07-22-2021 10:38-0400 Heart rate 104 /min Clark Moser MD Work Phone: [facility] 07-22-2021 10:38-0400 Respiratory rate 18 /min Clark Moser MD Work Phone: [facility] 07-22-2021 10:38-0400 SaO2% (BldA) [Mass fraction] 95 % Clark Moser MD Work Phone: [facility] 07-22-2021 10:38-0400 Systolic blood pressure 126 mm[Hg] Clark Moser MD Work Phone: [facility] [employer] 05-15-2021 09:11-0500 Body height 160 cm Angelito Harvey [facility] 05-14-2021 10:41-0500 Body height 160 cm Farhat Vang MD Work Phone: [facility] 05-14-2021 10:41-0500 Body mass index (BMI) [Ratio] 44.96 kg/m2 Farhat Vang MD Work Phone: [facility] 05-14-2021 10:41-0500 Body temperature 97.81 [degF] Farhat Vang MD Work Phone: [facility] 05-14-2021 10:41-0500 Body weight 115.12 kg Farhat Vang MD Work Phone: [facility] 05-14-2021 10:41-0500 Diastolic blood pressure 78 mm[Hg] Farhat Vang MD Work Phone: [facility] 05-14-2021 10:41-0500 Heart rate 98 /min Farhat Vang MD Work Phone: [facility] 05-14-2021 10:41-0500 Respiratory rate 18 /min Farhat Vang MD Work Phone: [facility] 05-14-2021 10:41-0500 SaO2% (BldA) [Mass fraction] 97 % Farhat Vang MD Work Phone: [facility] 05-14-2021 10:41-0500 Systolic blood pressure 124 mm[Hg] Farhat Vang MD Work Phone: [facility] 04-16-2021 10:15-0500 Body height 160 cm Farhat Vang MD Work Phone: [facility] 04-16-2021 10:15-0500 Body mass index (BMI) [Ratio] 44.44 kg/m2 Farhat Vang MD Work Phone: [facility] 04-16-2021 10:15-0500 Body temperature 98.01 [degF] Farhat Vang MD Work Phone: [facility] 04-16-2021 10:15-0500 Body weight 113.81 kg Farhat Vang MD Work Phone: [facility] 04-16-2021 10:15-0500 Diastolic blood pressure 78 mm[Hg] Farhat Vang MD Work Phone: [facility] 04-16-2021 10:15-0500 Heart rate 100 /min Farhat Vang MD Work Phone: [facility] 04-16-2021 10:15-0500 Respiratory rate 18 /min Farhat Vang MD Work Phone: [facility] 04-16-2021 10:15-0500 SaO2% (BldA) [Mass fraction] 96 % Farhat Vang MD Work Phone: [facility] 04-16-2021 10:15-0500 Systolic blood pressure 122 mm[Hg] Farhat Vang MD Work Phone: [facility] 03-23-2021 12:40-0500 Body height 160 cm Anuj Quinn MD Work Phone: [facility] [employer] 03-23-2021 12:40-0500 Body mass index (BMI) [Ratio] 44.46 kg/m2 Anuj Quinn MD Work Phone: [facility] [employer] 03-23-2021 12:40-0500 Body temperature 99.7 [degF] Anuj Quinn MD Work Phone: [facility] [employer] 03-23-2021 12:40-0500 Body weight 113.85 kg Anuj Quinn MD Work Phone: [facility] [employer] 03-23-2021 12:40-0500 Diastolic blood pressure 74 mm[Hg] Anuj Quinn MD Work Phone: [facility] [employer] 03-23-2021 12:40-0500 Heart rate 107 /min Anuj Quinn MD Work Phone: [facility] [employer] 03-23-2021 12:40-0500 Respiratory rate 16 /min Anuj Quinn MD Work Phone: [facility] [employer] 03-23-2021 12:40-0500 SaO2% (BldA) [Mass fraction] 96 % Anuj Quinn MD Work Phone: [facility] 03-23-2021 12:40-0500 Systolic blood pressure 131 mm[Hg] Anuj Quinn MD Work Phone: [facility] 01-15-2021 10:43-0500 Body height 160 cm Holland Ann MD Work Phone: [facility] 01-15-2021 10:43-0500 Body mass index (BMI) [Ratio] 42.55 kg/m2 Holland Ann MD Work Phone: [facility] 01-15-2021 10:43-0500 Body temperature 97.39 [degF] Holland Ann MD Work Phone: [facility] 01-15-2021 10:43-0500 Body weight 108.95 kg Holland Ann MD Work Phone: [facility] 01-15-2021 10:43-0500 Diastolic blood pressure 66 mm[Hg] Holland Ann MD Work Phone: [facility] 01-15-2021 10:43-0500 Heart rate 101 /min Holland Ann MD Work Phone: [facility] 01-15-2021 10:43-0500 SaO2% (BldA) [Mass fraction] 96 % Holland Ann MD Work Phone: [facility] 01-15-2021 10:43-0500 Systolic blood pressure 112 mm[Hg] Holland Ann MD Work Phone: [facility] 12-27-2020 18:15-0400 Body temperature 98.49 [degF] Wayne Springer MD Work Phone: [employer] Work Phone: 12-27-2020 18:15-0400 Diastolic blood pressure 77 mm[Hg] Wayne Springer MD Work Phone: [employer] Work Phone: Comment on above: Simultaneous filing. User may not have s een previous data. 12-27-2020 18:15-0400 Heart rate 98 /min Wayne Springer MD Work Phone: [employer] Work Phone: 12-27-2020 18:15-0400 Respiratory rate 20 /min Wayne Springer MD Work Phone: [employer] Work Phone: 12-27-2020 18:15-0400 SaO2% (BldA) [Mass fraction] 95 % Wayne Springer MD Work Phone: [employer] Work Phone: Comment on above: Simultaneous filing. User may not have s een previous data. 12-27-2020 18:15-0400 Systolic blood pressure 107 mm[Hg] Wayne Springer MD Work Phone: [employer] Work Phone: Comment on above: Simultaneous filing. User may not have s een previous data. 11-20-2020 21:07-0400 Body height 160 cm Anuj Quinn MD Work Phone: [employer] Work Phone: 11-20-2020 21:07-0400 Body mass index (BMI) [Ratio] 38.62 kg/m2 Anuj Quinn MD Work Phone: [employer] Work Phone: 11-20-2020 21:07-0400 Body temperature 98.6 [degF] Anuj Quinn MD Work Phone: [employer] Work Phone: 11-20-2020 21:07-0400 Body weight 98.88 kg Anuj Quinn MD Work Phone: [employer] Work Phone: 11-20-2020 21:07-0400 Diastolic blood pressure 65 mm[Hg] Anuj Quinn MD Work Phone: [employer] Work Phone: 11-20-2020 21:07-0400 Heart rate 84 /min Anuj Quinn MD Work Phone: [employer] Work Phone: 11-20-2020 21:07-0400 Respiratory rate 16 /min Anuj Quinn MD Work Phone: [employer] Work Phone: 11-20-2020 21:07-0400 SaO2% (BldA) [Mass fraction] 97 % Anuj Quinn MD Work Phone: [employer] Work Phone: 11-20-2020 21:07-0400 Systolic blood pressure 113 mm[Hg] Anuj Quinn MD Work Phone: [employer] Work Phone: 11-07-2020 16:28-0400 Body height 160 cm Nicholas Roger MD Work Phone: [employer] Work Phone: 11-07-2020 16:28-0400 Body mass index (BMI) [Ratio] 38.26 kg/m2 Nicholas Roger MD Work Phone: [employer] Work Phone: 11-07-2020 16:28-0400 Body temperature 98.8 [degF] Nicholas Roger MD Work Phone: [employer] Work Phone: 11-07-2020 16:28-0400 Body weight 97.98 kg Nicholas Roger MD Work Phone: [employer] Work Phone: 11-07-2020 16:28-0400 Diastolic blood pressure 71 mm[Hg] Nicholas Roger MD Work Phone: [employer] Work Phone: 11-07-2020 16:28-0400 Heart rate 98 /min Nicholas Roger MD Work Phone: [employer] Work Phone: 11-07-2020 16:28-0400 Respiratory rate 18 /min Nicholas Roger MD Work Phone: [employer] Work Phone: 11-07-2020 16:28-0400 SaO2% (BldA) [Mass fraction] 94 % Nicholas Roger MD Work Phone: [employer] Work Phone: 11-07-2020 16:28-0400 Systolic blood pressure 120 mm[Hg] Nicholas Roger MD Work Phone: [employer] Work Phone: 07-09-2020 10:52-0400 Body height 160 cm Zelda Bautista CNP Work Phone: [facility] 07-09-2020 10:52-0400 Body mass index (BMI) [Ratio] 41.27 kg/m2 Zelda Bautista CNP Work Phone: [facility] 07-09-2020 10:52-0400 Body weight 105.69 kg Zelda Bautista CNP Work Phone: [facility] 07-09-2020 10:52-0400 Diastolic blood pressure 70 mm[Hg] Zelda Bautista CNP Work Phone: [facility] 07-09-2020 10:52-0400 Heart rate 97 /min Zelda Bautista CNP Work Phone: [facility] 07-09-2020 10:52-0400 Systolic blood pressure 101 mm[Hg] Zelda Bautista CNP Work Phone: [facility] 06-24-2020 09:48-0400 Body mass index (BMI) [Ratio] 40.92 kg/m2 Anuj Quinn MD Work Phone: [employer] Work Phone: 06-24-2020 09:48-0400 Body temperature 97.9 [degF] Anuj Quinn MD Work Phone: [employer] Work Phone: 06-24-2020 09:48-0400 Body weight 104.78 kg Anuj Quinn MD Work Phone: [employer] Work Phone: 06-24-2020 09:48-0400 Diastolic blood pressure 64 mm[Hg] Anuj Quinn MD Work Phone: [employer] Work Phone: 06-24-2020 09:48-0400 Heart rate 120 /min Anuj Quinn MD Work Phone: [employer] Work Phone: 06-24-2020 09:48-0400 Respiratory rate 18 /min Anuj Quinn MD Work Phone: [employer] Work Phone: 06-24-2020 09:48-0400 SaO2% (BldA) [Mass fraction] 100 % Anuj Quinn MD Work Phone: [employer] Work Phone: 06-24-2020 09:48-0400 Systolic blood pressure 115 mm[Hg] Anuj Quinn MD Work Phone: [employer] Work Phone: 06-09-2020 10:44-0400 Body height 160 cm Lelo Gallegos MD Work Phone: [facility] 06-09-2020 10:44-0400 Body mass index (BMI) [Ratio] 41.27 kg/m2 Lelo Gallegos MD Work Phone: [facility] 06-09-2020 10:44-0400 Body weight 105.69 kg Lelo Gallegos MD Work Phone: [facility] 06-09-2020 10:44-0400 Diastolic blood pressure 75 mm[Hg] Lelo Gallegos MD Work Phone: [facility] 06-09-2020 10:44-0400 Heart rate 116 /min Lelo Gallegos MD Work Phone: [facility] 06-09-2020 10:44-0400 Systolic blood pressure 110 mm[Hg] Lelo Gallegos MD Work Phone: [facility] 03-26-2020 22:17-0500 Pulse (Heart Rate) 98 /min Brie Moreno Aldis [facility] 03-26-2020 21:43-0500 BP Diastolic 66 mm[Hg] Brie [facility] [place] [facility] [place] 03-26-2020 21:43-0500 BP Systolic 99 mm[Hg] [facility] [place] 03-26-2020 21:43-0500 Pulse Oximetry 95 % [facility] [place] 03-26-2020 20:50-0500 Respiratory Rate 16 /min [facility] [place] 03-26-2020 20:13-0500 BMI (Body Mass Index) 40.14 kg/m2 [facility] [place] 03-26-2020 20:13-0500 Body Temperature 98.2 [degF] [facility] [place] 03-26-2020 20:13-0500 Body weight 102.78 kg Brie Jorgensen [facility] , [place] 02-15-2020 18:22-0500 BMI (Body Mass Index) 39.75 kg/m2 Brie [employer] [facility], [place] 02-15-2020 18:22-0500 Body Temperature 98.6 [degF] [facility] [place] 02-15-2020 18:22-0500 Body weight 101.79 kg Brie Jorgensen [facility] , [place] 02-15-2020 18:22-0500 BP Diastolic 78 mm[Hg] [facility] [place] 02-15-2020 18:22-0500 BP Systolic 127 mm[Hg] [facility] [place] [facility] [place] 02-15-2020 18:22-0500 Height 160 cm Brei Moreno [facility] , [place] 02-15-2020 18:22-0500 Pulse (Heart Rate) 92 /min Brie Josh [facility] 02-15-2020 18:22-0500 Pulse Oximetry 99 % Brie Moreno [facility] [place] 02-15-2020 18:22-0500 Respiratory Rate 20 /min Brie Moreno [facility], [place] 11-20-2019 18:48-0400 BP Diastolic 75 mm[Hg] [facility] 11-20-2019 18:48-0400 BP Systolic 128 mm[Hg] [facility] 11-20-2019 18:48-0400 Pulse (Heart Rate) 83 /min [facility] [place] 11-20-2019 18:48-0400 Pulse Oximetry 97 % [facility], [place] 11-20-2019 18:48-0400 Respiratory Rate 18 /min [facility] 11-20-2019 17:00-0400 BMI (Body Mass Index) 36.31 kg/m2 [facility] 11-20-2019 17:00-0400 Body Temperature 98.4 [degF] [facility] 11-20-2019 17:00-0400 Body weight 92.99 kg [facility] 11-03-2019 11:37-0400 BMI (Body Mass Index) 34.47 kg/m2 [facility] 11-03-2019 11:37-0400 Body Temperature 98.71 [degF] [facility] 11-03-2019 11:37-0400 Body weight 88.27 kg [facility] 11-03-2019 11:37-0400 BP Diastolic 66 mm[Hg] [facility] 11-03-2019 11:37-0400 BP Systolic 117 mm[Hg] [facility] 11-03-2019 11:37-0400 Height 160 cm Wayne [facility], [place] 11-03-2019 11:37-0400 Pulse (Heart Rate) 87 /min [place] 11-03-2019 11:37-0400 Pulse Oximetry 99 % [place] 11-03-2019 11:37-0400 Respiratory Rate 20 /min Wayne [place], [place] 08-13-2019 19:42-0400 BMI (Body Mass Index) 31 kg/m2 [facility] 08-13-2019 19:42-0400 Body Temperature 98.6 [degF] [facility] 08-13-2019 19:42-0400 Body weight 79.38 kg [facility] 08-13-2019 19:42-0400 Height 160 cm [facility] 08-13-2019 19:40-0400 BP Diastolic 60 mm[Hg] [facility] 08-13-2019 19:40-0400 BP Systolic 156 mm[Hg] [facility] 08-13-2019 19:40-0400 Pulse (Heart Rate) 138 /min [facility] 08-13-2019 19:40-0400 Pulse Oximetry 98 % [facility] 08-13-2019 19:40-0400 Respiratory Rate 16 /min [facility] 06-17-2019 12:45-0400 Respiratory Rate 18 /min [facility] 06-17-2019 07:54-0400 Body Temperature 97.81 [degF] [employer] 06-17-2019 07:54-0400 BP Diastolic 66 mm[Hg] [facility] 06-17-2019 07:54-0400 BP Systolic 99 mm[Hg] [facility] 06-17-2019 07:54-0400 Pulse (Heart Rate) 82 /min [facility] 06-17-2019 07:54-0400 Pulse Oximetry 94 % [facility] 06-14-2019 08:15-0400 BMI (Body Mass Index) 32.92 kg/m2 [facility] 06-14-2019 08:15-0400 Body weight 81.65 kg [facility] 06-14-2019 08:15-0400 Height [facility].5 [facility] 06-14-2019 04:20-0400 Pulse (Heart Rate) 83 /min [facility]rie [facility] [place] [place] 06-14-2019 04:05-0400 BP Diastolic 58 mm[Hg] [facility]rie [facility] [place] [facility] [place] 06-14-2019 04:05-0400 BP Systolic 95 mm[Hg] [facility]rie [facility] [place] [facility] [place] 06-14-2019 04:05-0400 Pulse Oximetry 95 % [facility] [place] [facility] [place] 06-14-2019 01:12-0400 Respiratory Rate 18 /min [facility] [place] 06-14-2019 00:10-0400 Body Temperature 100.51 [degF] [facility] [place] 06-13-2019 22:00-0400 BMI (Body Mass Index) 32.31 kg/m2 [facility] [place] [place] 06-13-2019 22:00-0400 Body weight 82.74 kg [facility] [place] [facility] [place] 06-13-2019 22:00-0400 Height 160 cm [facility] [place] [facility] [place] 04-28-2019 19:58-0500 Body Temperature 98.8 [degF] [facility] [employer] [facility] [place] [facility] [place] 04-28-2019 19:58-0500 BP Diastolic 70 mm[Hg] [facility] [employer] [facility] [place] [facility] [place] 04-28-2019 19:58-0500 BP Systolic 98 mm[Hg] [facility] [employer] [facility] [place] [facility] [place] 04-28-2019 19:58-0500 Pulse (Heart Rate) 119 /min [facility] [employer] [facility] [place] 04-28-2019 19:58-0500 Pulse Oximetry 100 % Roslyn [employer] [facility] [place] [facility] [place] 04-28-2019 19:58-0500 Respiratory Rate 30 /min [facility] [employer] [facility] [place] 04-28-2019 19:54-0500 BMI (Body Mass Index) 30.65 kg/m2 Roslyn [facility] [place] [place] 04-28-2019 19:54-0500 Body weight 78.47 kg [facility] [place] 04-28-2019 19:54-0500 Height 160 cm Roslyn Keating [place], [place] Encounters Encounter Date Encounter Type Care Provider Facility Start: 11-23-2023 End: 11-23-2023 ambulatory MARK ELIANA Not Available Start: 11-09-2023 End: 11-09-2023 ambulatory MARK ELIANA Not Available Start: 10-26-2023 End: 10-26-2023 ambulatory MARK ELIANA Not Available Start: 10-05-2023 End: 10-05-2023 ambulatory VIOLET Ramos [facility] Start: 10-05-2023 End: 10-05-2023 Subsequent hospital visit by physician Violet Juarez MD Work Phone: [id number] Start: 10-05-2023 End: 10-05-2023 Emergency department patient visit RICHARDS Richard [facility] Start: 10-05-2023 End: 10-05-2023 Emergency department patient visit LINDA LANDRYE [facility] Start: 09-12-2023 End: 09-12-2023 ambulatory MARK ELIANA Not Available Start: 08-16-2023 End: 08-16-2023 ambulatory MARK ELIANA Not Available Start: 07-26-2023 End: 07-26-2023 ambulatory BLAKE KAUFFMAN [facility] Start: 07-19-2023 End: 07-19-2023 ambulatory MARK ELIANA Not Available Start: 06-21-2023 End: 06-21-2023 ambulatory MARK ELIANA Not Available Start: 05-20-2023 End: 05-20-2023 ambulatory MARK ELIANA Not Available Start: 05-13-2023 End: 05-13-2023 Emergency department patient visit Jonathan Michelle Facility:[facility] Start: 05-13-2023 End: 05-13-2023 Emergency department patient visit Jonathan Martinez [facility] Start: 05-11-2023 End: 05-12-2023 Emergency department patient visit Zac Fields Facility:[facility] Start: 05-11-2023 End: 05-11-2023 Emergency department patient visit Zac Herreraailin [facility] Start: 05-10-2023 End: 05-10-2023 Emergency department patient visit LINDA SHEPPARD [facility] Start: 05-10-2023 End: 05-10-2023 Emergency department patient visit Chet Berumen DO Work Phone: [facility] ED Comment on above: Toothache (Primary D x); Dental decay Start: 12-27-2022 End: 12-27-2022 ambulatory MARK SALCEDOZIO [facility] Start: 11-23-2022 End: 11-23-2022 ambulatory MARK SALCEDOZIO [facility] Start: 09-04-2022 End: 09-04-2022 Emergency department patient visit Erin Lacy MD Work Phone: [facility] ED Comment on above: Sprain of right ankl e, unspecified ligament, initial encounter (Primary Dx) Start: 06-29-2022 End: 06-30-[address] MARK DUMONT . Facility: Start: 06-29-2022 End: 06-30-2022 ambulatory Linda Sheppard Facility:[facility] Start: 06-29-2022 End: 06-29-2022 Pain Management Todd Smart [facility] Start: 06-14-2022 End: 06-14-[address] MARK DUMONT . Facility: Start: 05-19-2022 End: 05-19-2022 Emergency department patient visit Erin Lacy MD Work Phone: [facility] ED Comment on above: Dry socket (Primary Dx) Start: 05-11-2022 End: 05-11-2022 Emergency department patient visit Anuj Quinn MD Work Phone: [facility] ED Comment on above: Masseter muscle spas m (Primary Dx); Other acute postprocedural pain Start: 03-30-[address] MARK DUMONT . Facili ty:[facility] Start: 03-29-2022 End: 03-29-2022 Subsequent hospital visit by physician [facility] Start: 10-12-2021 End: 10-12-2021 Emergency department patient visit Rishabh Manicni MD Work Phone: [facility] ED Comment on above: Acute bronchitis, un specified organism (Primary Dx) Start: 07-22-2021 End: 07-22-2021 Emergency department patient visit Clark Moser MD Work Phone: [facility] ED Comment on above: Acute pharyngitis, u nspecified etiology (Primary Dx) Start: 07-07-2021 ambulatory BRIE GAGE ABELINO [facility] Ambulatory Start: 06-18-2021 ambulatory [facility] Start: 06-17-2021 End: 06-18-2021 ambulatory [facility] Start: 05-15-2021 End: 05-19-2021 ambulatory [facility] Start: 05-15-2021 End: 05-15-2021 Nutrition therapy Farhat Vang MD Work Phone: [facility] Nutritional Services Comment on above: Morbid obesity with body mass index (BMI) of 40.0 or higher (HCC) Start: 05-14-2021 End: 05-18-2021 ambulatory [facility] Start: 05-14-2021 End: 05-14-2021 Office outpatient visit 15 minutes Farhat Vang MD Work Phone: [facility] Primary Care Physicians Comment on above: Anxiety and depressi on (Primary Dx); At risk for obstructive sleep apnea; Chronic bilateral low back pain without sciatica; Hepatitis C antibody positive in blood; Body mass index 40.0-44.9, adult (HCC); History of opioid abuse (HCC) Start: 04-16-2021 End: 04-20-2021 ambulatory [facility] Start: 04-16-2021 End: 04-16-2021 Initial preventive medicine new pt age 18-39yrs Farhat Vang MD Work Phone: [facility] Primary [facility] Physicians Comment on above: Encounter for genera l adult medical examination with abnormal findings (Primary Dx); Anxiety and depression; History of opioid abuse (HCC); Morbid obesity with body mass index (BMI) of 40.0 or higher (HCC) Start: 04-16-2021 End: 04-16-2021 Patient encounter status Farhat Vang MD Work Phone: [facility] Physicians Start: 03-23-2021 End: 03-23-2021 Emergency department patient visit Anuj Quinn MD Work Phone: [facility] ED Comment on above: COVID-19 (Primary Dx ); Omphalitis in adult Start: 02-16-2021 End: 02-20-2021 ambulatory [facility] Start: 02-12-2021 End: 02-16-2021 ambulatory [facility] Start: 02-10-2021 End: 02-14-2021 ambulatory [facility] Start: 02-02-2021 End: 02-06-2021 ambulatory PH[facility]ICIAN [facility] Start: 01-15-2021 Documentation procedure Jeimy goodman [facility] Start: 01-15-2021 End: 01-15-2021 ambulatory HOLLAND WHIPPLE SETH [facility] Ambulatory Start: 01-15-2021 End: 01-15-2021 Office outpatient new 30 minutes Holland Ann MD Work Phone: [facility] Gastroenterology Comment on above: Hemorrhoids, unspeci fied hemorrhoid type Start: 12-29-2020 End: 01-02-2021 ambulatory PHYSICIAN [facility] Start: 12-27-2020 End: 12-27-2020 Emergency department patient visit Wayne Springer MD Work Phone: [facility] ED Comment on above: Viral syndrome (Prim prakash Dx) Start: 11-20-2020 End: 11-20-2020 Emergency department patient visit Anuj Quinn MD Work Phone: [facility] ED Comment on above: Strain of rhomboid m uscle, initial encounter; Chest wall muscle strain, initial encounter Start: 11-07-2020 End: 11-07-2020 Emergency department patient visit Nicholas Roger MD Work Phone: [facility] ED Comment on above: Viral URI (Primary D x) Start: 08-28-2020 End: 08-30-2020 Evaluation and management of inpatient ROSLYN [facility] Start: 08-25-2020 End: 08-25-2020 ambulatory [facility]YSIC[facility] Start: 07-29-2020 End: 08-02-2020 ambulatory [facility]IC[facility] Start: 07-22-2020 End: 07-26-2020 ambulatory [facility] Start: 07-22-2020 End: 07-22-2020 Telemedicine consultation with patient Lelo Gallegos MD Work Phone: [facility] Nutritional Services Comment on above: Diet controlled gest ational diabetes mellitus (GDM) in third trimester Start: 07-10-2020 ambulatory LELO ADAMS [facility] Ambulatory Start: 07-09-2020 End: 07-09-2020 ambulatory ZELDA BAUTISTA [facility] Ambulato ry Start: 07-09-2020 End: 07-09-2020 Office outpatient visit 15 minutes Zelda Bautista AUDIO TECHNICIAN Work Phone: [facility] Endocrinology Physicians Comment on above: Diet controlled gest ational diabetes mellitus (GDM) in third trimester (Primary Dx) Start: 06-24-2020 End: 06-24-2020 Emergency department patient visit Anuj Quinn MD Work Phone: [facility] ED Comment on above: Acute frontal sinusi tis, recurrence not specified (Primary Dx) Start: 06-10-2020 End: 06-10-2020 Nutrition therapy Lelo Gallegos Work Phone: [facility] Nutritional Services Comment on above: Diet controlled gest ational diabetes mellitus (GDM) in second trimester Start: 06-09-2020 End: 06-09-2020 Office outpatient new 30 minutes Roslyn Stevenson MD Work Phone: [facility] Endocrinology Physicians Comment on above: Diet controlled gest ational diabetes mellitus (GDM) in second trimester Start: 05-27-2020 End: 05-31-2020 ambulatory [facility] Start: 05-21-2020 End: 05-25-2020 ambulatory [facility] Start: 03-26-2020 End: 03-26-2020 Emergency department patient visit Brie Moreno Work Phone: [facility] ED Comment on above: Atypical pneumonia ( Primary Dx) Start: 02-15-2020 End: 02-15-2020 Emergency department patient visit Brie Moreno Work Phone: [facility] ED Comment on above: Pain, dental (Primar y Dx); Acute gingivitis; Alveolar osteitis Start: 11-20-2019 End: 11-20-2019 Emergency department patient visit Anuj Quinn Work Phone: [facility] ED Comment on above: Bacterial vaginosis (Primary Dx); Trichimoniasis; Furuncle of left axilla Start: 11-03-2019 End: 11-03-2019 Emergency department patient visit Wayne Maryuri Springer Work Phone: [facility] ED Comment on above: Poison arabella (Primary Dx) Start: 08-20-2019 End: 08-21-2019 Patient encounter procedure HODA MADERA [facility] Start: 08-20-2019 End: 08-20-2019 Subsequent hospital visit by physician [facility] Start: 08-13-2019 End: 08-13-2019 Emergency department patient visit Christian Martinez Work Phone: [facility] Emergency Department Comment on above: Heroin abuse (HCC) ( Primary Dx) Start: 06-20-2019 End: 06-20-2019 Patient encounter procedure Alisa Palencia Work Phone: [facility] Comment on above: Hepatitis C virus in fection without hepatic coma, unspecified chronicity (Primary Dx) Start: 06-18-2019 End: 06-18-2019 Documentation procedure Taryn Torres [facility] Start: 06-18-2019 Follow-up encounter Taryn Cartagena [facility] Comment on above: Transition Of Care Start: 06-18-2019 End: 06-18-2019 Patient encounter procedure Taryn Stokes Torres [facility] Start: 06-14-2019 End: 06-17-2019 Evaluation and management of inpatient [facility] Work Phone: [facility] Comment on above: Elevated LFTs; IVDA (intravenous drug abuse) complicating (HCC) Start: 06-13-2019 End: 06-14-2019 Emergency department patient visit Brie Benjamin Josh Work Phone: [facility] ED Comment on above: Abdominal pain, unsp ecified abdominal location (Primary Dx); Urinary tract infection with hematuria, site unspecified; Viral hepatitis without hepatic coma, unspecified chronicity, unspecified viral hepatitis type; Polysubstance abuse (HCC); Hyperbilirubinemia Start: 04-28-2019 End: 04-28-2019 Emergency department patient visit Roslyn Keating Work Phone: [facility] ED Comment on above: Accidental overdose of heroin, initial encounter (HCC) (Primary Dx) Start: 12-20-2016 End: 01-02-2020 Cancer cervix - screening done Lelo Gallegos MD Work Phone: [facility] Start: 12-20-2016 End: 01-02-2020 Encounter for gynecological examination (general) (routine) without abnormal findings Jeimy Tan ELECTROTYPE FINISHER [facility] Procedures Date Procedure Procedure Detail Performing Clinician Start: 09-04-2022 Radex ankle complete minimum 3 views Erin Lacy MD Work Phone: Start: 09-04-2022 Urine test visual color cmprsn randy Lacy MD Work Phone: Start: 05-11-2022 Ct maxillofacial w/o contrast material Anuj Quinn MD Work Phone: Start: 05-11-2022 Urine test visual color cmprsn meths Anuj Quinn MD Work Phone: Start: 03-29-2022 Gonadotropin chorion ic quantitative Mark Dustin Dumont MD Work Phone: Start: 07-22-2021 COVID-, RAPID Clark Moser MD Work Phone: Start: 07-22-2021 Iaadiadoo streptococ cus group a Clark Moser MD Work Phone: Start: 03-23-2021 BASIC METABOLIC PANE L W/ REFLEX TO MG FOR LOW K Anuj Quinn MD Work Phone: Start: 03-23-2021 Blood count complete auto&auto difrntl wbc Aunj Quinn MD Work Phone: Start: 03-23-2021 COVID-, [...] Acetaminophen [Mass/ volume] in Serum or Plasma Indar Castro Edmond Work Phone: Start: 06-14-2019 Bilirubin.direct [Mass/volume] in Serum or Plasma Indra Castro Edmond Work Phone: Start: 06-14-2019 Complete blood count with white cell differential, automated Indra Handylivan Work Phone: Start: 06-14-2019 Complete blood count with white cell differential, manual Indra Handylivan Work Phone: Start: 06-14-2019 Comprehensive metabo lic 2000 panel - Serum or Plasma Indra Matthew Pruitt Work Phone: Start: 06-14-2019 Hepatitis panel [...] [Mass/vo lume] in Serum or Plasma Indra Matthew Pruitt Work Phone: Start: 06-14-2019 US scan of upper abdomen Indra Matthew Pruitt Work Phone: Start: 06-13-2019 Ct abdomen [...] of 2) Shingles Vaccine (1 of 2) [facility]ace- [place], [place] Start: 12-29-2025 Screening for malignant neoplasm of cervix Pap Smear [facility] Start: 10-31-2024 Screening for malignant neoplasm of cervix Pap Smear [facility] Start: 12-30-2023 Screening for malignant neoplasm of cervix [facility] Start: 09-06-2024 Respiratory Syncytial Virus (RSV) or age 60 yrs+ (1 - Risk 1-dose series) Respiratory Syncytial Virus (RSV) or age 60 yrs+ (1 - Risk 1-dose series) [facility] Start: 11-10-2023 End: 11-10-2023 Patient encounter procedure 11/10/2023 10:00 AM EDT Routine [facility] Maternal Med [address] [place] [address] [facility] Start: 10-27-2023 End: 10-27-2023 Patient encounter procedure 10/27/2023 10:00 AM EDT Routine [facility] [address] [place] [address] [facility] Start: 10-13-2023 End: 10-13-2023 Patient encounter procedure 10/13/2023 10:00 AM EDT Routine [facility] [address] [place] [address] Return in about 2 weeks (around 10/04/2023) for twins, dopplers, growth, transvag. [facility] Comment on above: Return in about 2 weeks (around ) for twins, dopplers, growth, transvag. Start: 10-07-2023 Tdap Vaccine during Tdap Vaccine during [facility] Start: 10-06-2023 Influenza vaccination Flu vaccine (#1) [facility] Start: 10-31-2022 Screening for malignant neoplasm of cervix [facility] [employer] [facility] Work Phone: Start: 10-05-2022 Influenza vaccination Flu vaccine (#1) [facility] Start: 04-16-2022 History and physical examination, annual for health maintenance Wellness Visit [facility] Start: 02-13-2022 Depression Remission Assessment (PHQ9) Depression Remission Assessment (PHQ9) [facility] Start: 12-29-2021 History and physical examination, annual for health maintenance Wellness Visit [facility] Start: 11-12-2021 End: 11-12-2021 Patient encounter procedure 11/12/2021 Office Visit Primary Care Farhat Vang MD [address] [place] [address] [facility] Primary Care Physicians Start: 11-05-2021 Influenza vaccination [facility] Start: 10-05-2021 Influenza vaccination Flu vaccine (#1) [facility] Start: 06-26-2021 End: 06-26-2021 Nutrition therapy 06/26/2021 Nutrition Nutrition Farhat Vang MD [address] [place] [address] [facility] Nutrition[facility] Services Start: 05-15-2021 End: 05-15-2021 Nutrition therapy 05/15/2021 Nutrition Nutrition Angelito Harvey RD [facility] Start: 05-14-2021 End: 05-14-2021 Patient encounter procedure 05/14/2021 Office Visit Primary Care Farhat Vang MD [address] [place] [address] [facility] Primary Care Physicians Start: 03-17-2021 Depression screening using PHQ-9 (Patient Health Questionnaire 9) score Depression Screening (PHQ9) [facility] Start: 01-15-2021 Depression Remission Assessment (PHQ9) Depression Remission Assessment (PHQ9) [facility] Start: 01-09-2021 Hemoglobin A1c measurement A1C [facility] Start: 12-09-2020 HbA1c (Bld) [Mass fraction] A1C [facility] Start: 12-09-2020 Hemoglobin A1c measurement A1C [facility] Start: 11-05-2020 Influenza vaccination [facility] Start: 10-31-2020 History and physical examination, annual for health maintenance Wellness Visit [facility] Start: 08-28-2020 End: 08-28-2020 Admission to same day surgery center 08/28/2020 Surgery Obstetrics Roslyn Stevenson MD [facility] [address] [place] [address] [phone] SECTION [facility] Labor & Delivery Comment on above: SECTION Start: 08-28-2020 Subsequent hospital visit by physician 08/28/2020 Hospital Encounter Obstetrics Roslyn Stevenson MD [facility] [address] Young [facility] [place] [address] [phone] [facility] Labor & Delivery Start: 08-25-2020 End: 08-25-2020 Office Visit 08/25/2020 Office Visit Endocrinology Zelda Bautista, AUDIO TECHNICIAN [address] [place] [address] [phone] [facility] Endocrinology Physicians Start: 07-31-2020 End: 07-31-2020 Office Visit 07/31/2020 Office Visit Endocrinology Benito Krueger CNP [address] [place] [address] [phone] [facility] Endocrinology Physicians Start: 07-29-2020 End: 07-29-2020 Patient encounter procedure 07/29/2020 Routine Obstetrics and Gynecology Regla Dias CNM [address] [place] [phone] [facility] DIRECTOR MATERNAL CHILD - An Affiliate of [facility] Start: 07-22-2020 End: 07-22-2020 Telemedicine consultation with patient 07/22/2020 Telemedicine Nutrition Lelo Gallegos MD [address] [place] [address] [phone] [facility] Start: 07-17-2020 End: 07-17-2020 Patient encounter procedure 07/17/2020 Routine Obstetrics and Gynecology Yvonne Santos MD [address] [place] [phone] [facility] DIRECTOR MATERNAL CHILD - An [facility] of [facility] Start: 07-09-2020 End: 07-09-2020 Office Visit 07/09/2020 Office Visit Endocrinology Zelda Bautista, AUDIO TECHNICIAN [address] [place] [address] [phone] [facility] Endocrinology Physicians Start: 07-04-2020 End: 07-04-2020 Patient encounter procedure 07/04/2020 Routine Obstetrics and Gynecology Radha Pantoja MD [address] [place] [id number] [facility] DIRECTOR MATERNAL CHILD - An [facility]ate of [facility] Start: 06-26-2020 End: 06-26-2020 Patient encounter procedure 06/26/2020 Office Visit Endocrinology Janie Chen PA-C [address] [place] [address] [phone] [facility] Endocrinology Physicians Start: 06-24-2020 End: 06-24-2020 Nutrition [facility] Start: 06-19-2020 End: 06-19-2020 Routine 06/19/2020 Routine Obstetrics and Gynecology Larissa, Regla Arriaga CNM [address] [place] [phone] [facility] DIRECTOR MATERNAL CHILD - An [facility] Start: 05-17-2020 Depression screening using PHQ-9 (Patient Health Questionnaire 9) score Depression Screening (PHQ9) [facility] Start: 2020 Screening for malignant neoplasm of cervix [facility] Start: 02-26-2020 End: 02-26-2020 Initial 02/26/2020 Initial Obstetrics and Gynecology Jai Huerta MD [address] [place], [place] [id number] [facility] Walt DIRECTOR MATERNAL CHILD Start: 11-06-2019 Influenza vaccination [facility] [place] Start: 11-06-2019 Influenza vaccination given [facility] Start: 08-06-2019 Screening for malignant neoplasm of cervix Pap Smear [facility] Start: 06-20-2019 End: 06-20-2019 Office Visit 06/20/2019 Office Visit Transition of Care Alisa Palencia, AUDIO TECHNICIAN [address] [facility] [address] [place] [address] [phone] [facility] Start: 11-05-2018 Influenza vaccination Flu vaccine (#1) [place], [place] Start: 11-05-2018 Influenza vaccination given Sequential Influenza Vaccine (#1) [facility] Start: 03-21-2015 Cervical cancer screen Cervical cancer screen [place], [place] Start: 03-21-2015 Screening for malignant neoplasm of cervix Cervical cancer screen [place], [place] Start: 04-05-2014 Screening for malignant neoplasm of cervix Pap smear [facility] Start: 2009 DTaP/Tdap/Td vaccine (1 - Tdap) DTaP/Tdap/Td vaccine (1 - Tdap) [place], [place] Start: 2009 Hepatitis B vaccine (1 of 3 - Risk 3-dose series) Hepatitis B vaccine (1 of 3 - Risk 3-dose series) [facility] Work Phone: Start: 2008 Hepatitis C screening Hepatitis C screen [facility] Start: 2006 COVID-19 Vaccine (1) COVID-19 Vaccine (1) [facility] Start: 2005 HIV screen HIV screen [place], [place] Start: 2005 HIV screening HIV screen [facility] Start: 2002 COVID-19 Vaccine (1) COVID-19 Vaccine (1) [facility] Start: 2002 Depression Monitoring Depression Monitoring [facility] Start: 2001 DTaP/Tdap/Td vaccine (1 - Tdap) DTaP/Tdap/Td vaccine (1 - Tdap) [place], [place] Start: 2001 DTaP/Tdap/Td vaccine (5 - Tdap) DTaP/Tdap/Td vaccine (5 - Tdap) [facility] Start: 2000 Albumin DL <= 20 mg/L (U) [Mass/Vol] Urine Microalbumin [facility] Start: 2000 Diabetic foot examination Foot Exam [facility] Start: 2000 Microalbumin measurement, urine, quantitative Urine Microalbumin [facility] Start: 2000 Ophthalmic examination and evaluation Ophthalmology Exam [facility] Start: 1996 Pneumococcal 0-64 years Vaccine (1 of 1 - PPSV23) Pneumococcal 0-64 years Vaccine (1 of 1 - PPSV23) [place], [place] Start: 1996 Pneumococcal Vaccine: Ped or At-Risk (1 of 2 - PPSV23) Pneumococcal Vaccine: Ped or At-Risk (1 of 2 - PPSV23) [facility] Start: 1995 COVID-19 Vaccine (1) COVID-19 Vaccine (1) [facility] Start: 1993 History and physical examination, annual for health maintenance Wellness Visit [facility] Start: 1991 Varicella vaccine (1 of 2 - 2-dose childhood series) Varicella vaccine (1 of 2 - 2-dose childhood series) [facility] Start: 1990 COVID-19 Vaccine (#1) COVID-19 Vaccine (#1) [facility] Start: 1990 Hepatitis B vaccine (1 of 3 - 3-dose series) Hepatitis B vaccine (1 of 3 - 3-dose series) [facility] Start: 1990 Hepatitis C screening Hepatitis C screen [facility] Start: 1990 Tetanus vaccination Tetanus: Every 10yrs [facility] Anti smooth muscle antibody IgA level Anti-Smooth Muscle Antibody Lab Add-On 06/15/2019 1:50 PM EDT [facility] Antimitochondrial antibody titer Antimitochondrial Antibody Lab Add-On 06/15/2019 1:50 PM EDT [facility] End: 11-20-2019 C.trachomatis N.gonorrhoeae DNA, Urine C.trachomatis N.gonorrhoeae DNA, Urine Microbiology STAT One Time for 1 Occurrences starting 11/20/2019 until 11/20/2019 [place] Comment on above: One Time for 1 Occurrences starting 11/05 until 11/20/2019 C.trachomatis N.gonorrhoeae DNA, Urine C.trachomatis N.gonorrhoeae DNA, Urine Microbiology Stat [employer] Label print 11/20/2019 5:55 PM EDT [place] End: 03-26-2020 Covid-19 Ambulatory Covid-19 Ambulatory Lab Routine Once for 1 Occurrences starting 03/26/2020 until 03/26/2020 [facility] [place] Comment on above: Once for 1 Occurrences starting 03/26/19 21 until 03/26/2020 Covid-19 Ambulatory Covid-19 Amb ulatory Lab Routine 03/26/2020 8:44 PM EST [facility] End: 06-13-2019 Culture, Blood 1 Culture, Blood 1 Microbiology STAT One Time for 1 Occurrences starting 06/13/2019 until 06/13/2019 [place] Comment on above: One Time for 1 Occurrences starting 10/2019 until 06/13/2019 Culture, Blood 1 [place], [place] End: 03-23-2021 Culture, Wound [facility] Work Phone: Comment on above: One Time for 1 Occurrences starting 03/07 until 03/23/2021 Cytomegalovirus DNA assay CMV DN A Detection and Quant, Blood Lab Routine 06/15/2019 1:50 PM EDT [facility] Kirsten-Hazel Virus P CR, Quantitative Kirsten-Hazel Virus PCR, Quantitative Lab Routine 06/15/2019 1:50 PM EDT [facility] End: 04-16-2022 Hemoglobin A1c/Hemoglobin.total in Blood Hemoglobin A1c Lab Routine Encounter for general adult medical examination with abnormal findings 1 Occurrences starting 04/16/2021 until 04/16/2022 [facility] Work Phone: Comment on above: 1 Occurrences starting 04/16/2021 until 04/16/2022 Hemoglobin A1c/Hemoglobin.total in Blood Hemoglobin A1c Lab Routine Encounter for general adult medical examination with abnormal findings 04/16/2021 10:58 AM [facility] End: 04-16-2022 Hepatitis C antibody measurement Hepatitis C Antibody Lab Routine Encounter for general adult medical examination with abnormal findings 1 Occurrences starting 04/16/2021 until 04/16/2022 [facility] Comment on above: 1 Occurrences starting 04/16/2021 until 04/16/2022 Hepatitis C antibody measurement Hepatitis C Antibody Lab Routine Encounter for general adult medical examination with abnormal findings 04/16/2021 10:58 AM [facility] MDI Treatment MDI Treatment Re spiratory Care Routine Every 6hr As Needed until discontinued starting 03/26/2020 [place] Comment on above: Every 6hr As Needed until discontinued s tarting 03/26/2020 Nonrebreather mask oxygen Nonreb reather mask oxygen Respiratory Care Routine As Needed until discontinued starting 10/05/2023 [facility] Comment on above: As Needed until discontinued starting Nuclear Ab IF (S) [Titer] KENIA La b Add-On 06/15/2019 1:50 PM EDT [facility] End: 06-24-2020 Urinalysis, reflex to microscopic Urinalysis, reflex to microscopic Lab STAT One Time for 1 Occurrences starting 06/24/2020 until 06/24/2020 [employer] Work Phone: Comment on above: One Time for 1 Occurrences starting 06/06 until 06/24/2020 End: 05-14-2022 XR Lumbar Spine Complete AP/Lat w Obls XR Lumbar Spine Complete AP/Lat w Obls Imaging Routine Chronic bilateral low back pain without sciatica 1 Occurrences starting 05/14/2021 until 05/14/2022 [employer] Work Phone: Comment on above: 1 Occurrences starting 05/14/2021 until 05/14/2022 Payers Date Payer Category Payer Medicaid [employer] [id number] 2021-Present [phone] [address] [place] [address] [id number]. [id number] 2021 Unknown [id number] 1.2.840.646002.1.13.239.2. 7.3.810755.315 2017 Medicaid [id number] 1.2.840.121413.1.13.385.2. 7.3.238013.315 2012 Medicaid [id number] 1.2.840.612546.1.13.239.2. 7.3.878442.315 2012 Medicaid [id number] 2008 Private Health Insurance [id number] 1990 Unknown [id number] 2.16.840.1.798149.3.579.2. 173 1990 Unknown [id number] 2.16.840.1.644657.3.579.2. 900 1990 Unknown [id number] 2.16.840.1.297021.3.579.2. 900 1990 Unknown [id number] 2.16.840.1.275141.3.579.2. 900 1990 Unknown [id number] 2.16.840.1.079245.3.579.2. 900 1990 Unknown [id number] 2.16.840.1.665564.3.579.2. 900 1990 Unknown [id number] 2.16.840.1.163591.3.579.2. 900 1990 Unknown [id number] 2.16.840.1.274788.3.579.2. 900 1990 Unknown [id number] 2.16.840.1.003834.3.579.2. 903 1990 Unknown [id number] 2.16.840.1.192645.3.579.2. 903 1990 Unknown [id number] 2.16.840.1.102220.3.579.2. 903 1990 Unknown [id number] 2.16.840.1.845257.3.579.2. 903 1990 Unknown [id number] 2.16.840.1.027171.3.579.2. 903 1990 Unknown [id number] 2.16.840.1.252194.3.579.2. 903 1990 Unknown [id number] 2.16.840.1.519296.3.579.2. 903 1990 Unknown [id number] 2.16.840.1.793386.3.579.2. 903 1990 Unknown [id number] 2.16.840.1.345370.3.579.2. 903 1990 Unknown [id number] 2.16.840.1.516129.3.579.2. 903 1990 Unknown [id number] 2.16.840.1.963208.3.579.2. 903 1990 Unknown [id number] 2.16.840.1.054147.3.579.2. 903 1990 Unknown [id number] 2.16.840.1.329219.3.579.2. 903 1990 Unknown [id number] 2.16.840.1.622732.3.579.2. 903 1990 Unknown [id number] 2.16.840.1.100939.3.579.2. 903 1990 Unknown [id number] 2.16.840.1.330301.3.579.2. 593 1990 Unknown [id number] 2.16.840.1.474137.3.579.2. 593 1990 Unknown [id number] 2.16.840.1.684029.3.579.2. 593 1990 Unknown [id number] 2.16.840.1.918093.3.579.2. 593 1990 Unknown [id number] 2.16.840.1.317644.3.579.2. 727 1990 Unknown [id number] 2.16.840.1.429276.3.579.2. 727 1990 Unknown [id number] 2.16.840.1.974748.3.579.2. 727 1990 Unknown [id number] 2.16.840.1.653828.3.579.2. 174 1990 Unknown [id number] 2.16.840.1.948014.3.579.2. 174 1990 Unknown [id number] 2.16.840.1.310482.3.579.2. 174 1990 Unknown [id number] 2.16.840.1.578505.3.579.2. 174 1990 Unknown [id number] 2.16.840.1.722110.3.579.2. 174 1990 Unknown [id number] 2.16.840.1.503587.3.579.2. 9 1990 Unknown [id number] 2.16.840.1.298591.3.579.2. 9 1990 Unknown [id number] 2.16.840.1.333466.3.579.2. 9 1990 Unknown [id number] 2.16.840.1.277129.3.579.2. 9 1990 Unknown [id number] 2.16.840.1.343450.3.579.2. 9 1990 Unknown [id number] 2.16.840.1.526066.3.579.2. 9 1990 Unknown [id number] 2.16.840.1.494258.3.579.2. 9 1990 Unknown [id number] 2.16.840.1.386817.3.579.2. 9 1990 Unknown [id number] 2.16.840.1.595871.3.579.2. 175 1990 Unknown [id number] 2.16.840.1.534516.3.579.2. 175 1990 Unknown [id number] 2.16.840.1.776594.3.579.2. 175 1959 Unknown [id number] Social History Date Type Detail Facility Start: 04-28-2019 End: 11-03-2019 Tobacco smoking status VAIS Current every day smoker [place] End: 02-15-2020 History of tobacco use Cigarette Smoker [place] Start: 04-28-2019 End: 10-05-2023 Cigarettes smoked current (pack per day) - Reported [employer] [employer] Start: 04-28-2019 Alcohol intake Current drinke r of alcohol (finding) [facility] [employer] [facility] Start: 1990 Sex Assigned At [facility] on file [facility] Start: 06-13-2019 End: 10-05-2023 Alcohol intake Ex-drinker (finding) [facility] Exposure to SARS-CoV -2 (event) Unable to assess [facility] [employer] [facility] Start: 05-18-2019 End: 04-16-2021 History SDOH Alcohol Frequency 3 [facility] Start: 05-18-2019 End: 07-16-2020 History SDOH Alcohol Std Drinks 5 [facility] Start: 05-04-2021 End: 05-19-2022 Exposure to SARS-CoV-2 (event) Not sure [facility] Start: 11-20-2019 End: 07-26-2023 Tobacco use and exposure [facility] Start: 06-09-2020 End: 07-26-2023 Tobacco smoking status NHIS Former smoker [facility] End: 02-15-2020 History of tobacco use Current smoker [facility] Start: 12-09-2019 [facility] Start: 04-16-2021 History SDOH Social Connections Get Together 4 [facility] Start: 04-16-2021 History SDOH Food Worry 1 [facility] Start: 09-04-2022 End: 10-05-2023 Sex Assigned At Female [facility] Start: 09-04-2022 History SDOH Alcohol Frequency 2 [employer] How often to you hav e a drink containing alcohol? Monthly or less [employer] Average Number of Drinks Not on file [employer] How often to you hav e a drink containing alcohol? Never [employer] Medical Equipment Procedure Code Equipment Code Equipment Origin al Text Equipment Identifier Dates Use to check BG QID Dx O24.14 . [id number] Start: 06-09-2020 Use as instructe d to check BG QID Dx O24.14 . [id number] Start: 06-09-2020 End: 06-11-2020 use to test BLOO D SUGAR FOUR TIMES DAILY [id number] Start: 06-09-2020 Goals Date Patient Goal Desired Activity /State Functional Status Date Assessment Result Facility 05-13-2023 Functional Status N/A [facility] 05-11-2023 Functional Status N/A [facility] 06-29-2022 Functional Status N/A [facility] Clinical Notes 06-09-2020 to 05-13-2023 Note [...] Follow these instructions at home: Medicines Take ksys-cgz-uhojuhh and prescription medicines only as told by [...] provider. Document Revised: 04/30/2021 Document Reviewed: 04/30/2021 [employer] Patient Education 2022 [employer]. Follow Up Care 05/13/2023 11:20:07 With:ezzai - how to ar[place] [facility] Address: [address] [place], [place] [id number] [facility] (1) When:05/16/2023 12:45:32 Comments:Dentistry follow-up [facility] 05-12-2023 Hospital Discharg e instructions Patient Education 05/11/2023 23:33:09 Dental Pain, Scrn-fn-Hmup Dental Pain Dental pain is often a [...] Follow these instructions at home: Medicines Take tfny-vlk-mtrascb and prescription medicines only as told by [...] damage to the area. Brushing your teeth [place] your teeth twice a day using a [...] only when you eat or drink. Take onvh-bcb-alonqvc and prescription medicines only as told by your dentist. Watch your dental pain for any changes. Let your dentist know if symptoms get worse. This information is not intended to replace advice given to you by your health care provider. Make sure you discuss any questions you have with your health care provider. Document Revised: 11/26/2020 Document Reviewed: 11/26/2020 [employer] Patient Education 2022 [employer]. Follow Up Care 05/11/2023 21:26:40 With:Linda Sheppard DO Address: [address] [place] [address], [address] [address] When:05/14/2023 [facility] 05-11-2023 Evaluation + Plan note Extrac roxann from: Title:ED Note Author:Violet Walters PA-C ate:05/11/23 1. Pain, dental (K08.89: Oth er specified disorders of teeth and supporting structures) Ordered: amoxicillin-clavulanate, = 1 tab(s), Oral, q12hr, X 7 day(s), # 14 tab(s), Refills(s) 0, Pharmacy: [facility], 160, cm, 05/11/23 21:53:00 EST, Height/Length Dosing, 110, kg, 05/11/23 21:53:00 EST, Weight Dosing chlorhexidine topical, 0.018 gm, 15 mL, Oral, BID, 480 mL, Refill(s) 0, (swish and spit; do not swallow), [facility], 160, cm, 05/11/23 21:53:00 EST, Height/Length Dosing, 110, kg, 05/11/23 21:53:00 EST, Weight Dosing 2. Infected dental caries (K02.9: Dental caries, unspecified) Ordered: amoxicillin-clavulanate, = 1 tab(s), Oral, q12hr, X 7 day(s), # 14 tab(s), Refills(s) 0, Pharmacy: [facility], 160, cm, 05/11/23 21:53:00 EST, Height/Length Dosing, 110, kg, 05/11/23 21:53:00 EST, Weight Dosing chlorhexidine topical, 0.018 gm, 15 mL, Oral, BID, 480 mL, Refill(s) 0, (swish and spit; do not swallow), [facility], 160, cm, 05/11/23 21:53:00 EST, Height/Length Dosing, 110, kg, 05/11/23 21:53:00 EST, Weight Dosing 3. First trimester (Z34.91: Encounter for supervision of normal , unspecified, first trimester) Periapical abscess without sinus (K04.7: Periapical abscess without sinus) Orders: ketorolac, 30 mg = 1 mL, Injection, IntraMuscular, Once, Stop date 05/11/23 23:31:00 EST, STAT, Start date 05/11/23 23:31:00 EST, 05/11/23 23:31:00 EST [facility]03-05-2024 Hospital Discharge instructions* Discharge Instructions* Chet Berumen DO - 05/10/2023 11:50 AM EST Use amoxicillin as prescribed. Use Tylenol as needed for pain. Follow-up with dentist as soon as possible. * Attachments The following attachments cannot be sent through Care Everywhere. * Tooth Decay (Mauritian) * Tooth and Gum Pain (Mauritian) [facility] History of Present illness Narrative* Angelito Harvey RD - 05/15/2021 8:39 AM EST Patient Name: Tia Levin Patient : 1990 Primary Care Provider: Farhat Vang MD Referred By: [place], Narcis Dawit* Referral Diagnosis: Obesity Start Time: 8:40 AM [...] Supplements: Reviewed Current Outpatient Medications Ordered in [facility] Medication Sig Dispense Refill baclofen (LIORESAL) [...] mg by mouth daily . No current [facility]-ordered facility-administered medications on file. Lab Results [...] - 6-7 PM- crock pot meals- goulash; Mohawk chicken; spicy rice with chicken and beans; [...] calorie goals/day. Estimated Nutritional Needs: Calorie Needs: 9904-3867 kcals/day (MSJ x 1.3AF -500-1000 to promote gradual weight loss) Patient/Family Education: Learner: family and patient Readiness: action - ready to set action plan and implement goals Barriers to Learning: none Method: explanation and handout Response: verbalizes understanding Expected Adherence: good Education Materials Provided: Healthy Meal Planning handout ([facility]), Goal Sheet, 1,819-Tweyyjm9-Hwe Menus (NCM), 1,800-Calorie 5-Day Menus (NCM), Weight Loss Tips (NCM) Monitoring/Evaluation: Lab results, weight, food recall, meal planning, goal achievement, physical activity, medication management. This documentation has been sent to the referring healthcare provider. Angelito Harvey RDN, ZAHRA Personal Office documented in this [id number] History of Present illness Narrative* Farhat Vang [...] C hepatitis virus. Patient was referred to first calender worker and the recommendation was made for a [...] improve, for Follow Up. documented in this [id number] History of Present illness Narrative* Farhat Vang [...] current medications that are prescribed by her net application support specialist. She has 4 children at [...] Not difficult at all documented in this [id number] History of Present illness Narrative* Holland Ann [...] Procedure: SECTION; Surgeon: Roslyn Stevenson MD; Location: [facility]; Service: OBGYN SECTION, LOW TRANSVERSE 3 Social [...] Friends and Family: Not on file Attends [employer] Services: Not on file Active Member of [...] Report 12/29/2020 Final Value:Gynecologic Cytology Report Case: [id number] Authorizing Provider: Germania Valentino, Collected: 12/29/2020 11:09 AM AUDIO TECHNICIAN Ordering Location: [facility] DIRECTOR MATERNAL CHILD - An Received: 12/30/2020 12:03 PM [facility] First Screen: Violet Craig Rescreen: [...] from every slide are reviewed by a medical coding auditor. Specimen processing and Primary Screening performed at: [facility] - [address] [place] [id number] HPV Results 12/29/2020 Final Value:This result contains [...] physician. Holland Ann MD documented in this [id number] History of Present illness Narrative* Jeimy Tan LPN - 01/15/2021 11:17 AM EST This nurse acted as a blender laborer for a rectal exam by Dr. Ann for Tia. Tia verbalized consent to be examined, appeared comfortable and tolerated the exam well. documented in this [id number] History of Present illness Narrative* Neris Ulloa, RD - 07/22/2020 12:04 PM EDT Patient [...] no 2) I will try yoga on [employer] - yes but didn't feel comfortable doing [...] oatmeal packet. Snack celery + PB or [place] yogurt or green peppers. Lunch - will be light if full from snack and may have an early dinner. Dinner - pork chops, steamed vegetables. Snack - [place] yogurt or vegetables or watermelon. Beverages - [...] prescription for Current Outpatient Medications Ordered in [facility] Medication Sig Dispense Refill blood sugar [...] BLOOD SUGAR FOUR TIMES DAILY No current [facility]-ordered facility-administered medications on file. SMBG Results: [...] the referring healthcare provider. documented in this [id number] Instructions* Patient Instructions* Zelda Bautista CNP - [...] to renew/prescribe testing supplies. documented in this [id number] History of Present illness Narrative* Zelda Bautista [...] visit with us. The patient did bring An[employer] sugar meter with her for download today however there is not many readings on it. She states she started a new job at [employer] and does noise get breaks to check [...] 4. Patient to cont. To follow with technical business analyst 5. Patient will require 2 hour 75 gram OGTT 8-12 weeks after delivery. 6. Follow-up in 2 weeks. Risks and potential complications of diabetes were reviewed with the patient. Electronically signed by Zelda MARIN 07/09/2110:03 AM documented in this [id number] History of Present illness Narrative* Lelo Gallegos [...] month during . While awaiting appointment with technical business analyst, patient provided with details of GDM diet, [...] 1 hour post prandial. 4. Referral to technical business analyst 5. Patient will require 2 hour 75 gram OGTT 8-12 weeks after delivery. 6. Follow-up in 2 weeks. Risks and potential complications of diabetes were reviewed with the patient. documented in this encounterOhioHealthEvaluation + Plan note No data available for this section [facility]* Diagnosis Diet controlled gestational diabetes mellitus (GDM) in second trimester [facility] Diagnosis Acute frontal sinusitis, recurrence not specified- Primary documented in this encounter [employer] Phone: evaluation note* Diagnosis Diet controlled gestational diabetes mellitus (GDM) in third trimester- Primary [facility]* Diagnosis Diet controlled gestational diabetes mellitus (GDM) in third trimester documented [facility] Diagnosis Viral URI- Primary Acute upper respiratory infections of unspecified site documented in this encounter [employer] Phone: evalkhqloq note* Diagnosis Strain of rhomboid muscle, initial encounter Chest wall muscle strain, initial encounter documented in this encounter [employer] Phone: evaliqgehu note* Diagnosis Viral syndrome- Primary Unspecified viral infection, in conditions classified elsewhere and of unspecified site documented in this encounter [employer] Phone: evaluation note* Diagnosis Hemorrhoids, unspecified hemorrhoid type documented in this [facility] Diagnosis COVID-19- Primary Omphalitis in adult Unspecified local infection of skin and subcutaneous tissue documented in this encounter [employer] Phone: evaluation note* Diagnosis Encounter for general adult medical examination with abnormal findings- Primary Anxiety and depression History of opioid abuse (HCC) Morbid obesity with body mass index (BMI) of 40.0 or higher (HCC) documented in this encounter [facility] Diagnosis Anxiety and depression- Primary At risk for obstructive sleep apnea Chronic bilateral low back pain without sciatica Hepatitis C antibody positive in blood Body mass index 40.0-44.9, adult (HCC) Body Mass Index 40.0-44.9, adult History of opioid abuse (HCC) documented [facility]* Diagnosis Morbid obesity with body mass index (BMI) of 40.0 or higher (HCC) documented in this [facility]* Diagnosis Acute pharyngitis, unspecified etiology- Primary documented in this encounter [employer] Phone: evaluation note* Diagnosis Acute bronchitis, unspecified organism- Primary documented in this encounter [employer] Phone: evalynmbxo note* Diagnosis Masseter muscle spasm- Primary Spasm of muscle Other acute postprocedural pain documented in this encounter [employer] Phone: evaluation note* Diagnosis Dry socket- Primary Alveolitis of jaw documented in this [facility] Phone: evaluation note* Diagnosis Sprain of right ankle, unspecified ligament, initial encounter- Primary [facility] Diagnosis Toothache- Primary Unspecified disorder of the teeth and supporting structures Dental decay Unspecified dental caries documented in this encounter [facility]* Diagnosis 26 weeks gestation of - Primary state, incidental [facility] instructions* Instructions* Anuj Quinn MD - 06/24/2020 Although many zabo-qdd-zbfkdka cough cold flu sinus medications are safe in , I would contact her DIRECTOR MATERNAL CHILD office in [facility] to verify what your DIRECTOR MATERNAL CHILD group feels a safe in . Tylenol [...] be sent through Care Everywhere. * Sinusitis (Mauritian) [facility]: Hospital Discharge instructions* Attachments The following attachments cannot be sent through Care Everywhere. * URI (Upper Respiratory Infection) (Mauritian) documented [facility] Phone: Hospital Discharge instructions* Attachments The following attachments cannot be sent through Care Everywhere. * Muscle Strain (Mauritian) [facility]: Hospital Discharge instructions* Attachments The following attachments cannot be sent through Care Everywhere. * Viral Infections (Mauritian) [facility] Hospital Discharge instructions* Attachments The following attachments cannot be sent through Care Everywhere. * Coronavirus Disease (COVID-19): General Info (Mauritian) * Coronavirus Disease (COVID-19): Isolation (Mauritian) * Piercing: Infection (Mauritian) [facility]: spital Discharge instructions* Instructions* Clark Moser MD - 07/22/2021 Use Tylenol or Motrin for pain. Take amoxicillin twice a day. Amoxicillin treats strep throat, ear infections, bronchitis and pneumonia. Call primary care doctor for close follow-up. * Attachments The following attachments cannot be sent through Care Everywhere. * Sore Throat (Mauritian) [facility] this [facility]: spital Discharge instructions* Attachments The following attachments cannot be sent through Care Everywhere. * Bronchitis (Mauritian) documented in this [facility] Phone: Sparktrendspital Discharge instructions* Attachments The following attachments cannot be sent through Care Everywhere. * Cramp: Muscle (Mauritian) * Pain Post-Surgery: Acute (Mauritian) documented in this [facility] Phone: SparktrendspFinalCAD Discharge instructions* Attachments The following attachments cannot be sent through Care Everywhere. * Floweree Tooth Extraction: Post-op (Mauritian) documented in this [facility] Phone: SparktrendspFinalCAD Discharge instructions No data available for this section [facility]* Attachments The following attachments cannot be sent through Care Everywhere. * Ankle Sprain (Mauritian) [facility] instructions* Attachments The following attachments cannot be sent through Care Everywhere. * : Weeks 26 to 30 (Mauritian) * : When to Call (After 20 Weeks): General Info (Mauritian) * : Twins: General Info (Mauritian) documented in this [facility] note No data available for this section [facility] (narrative)* Consultation (Routine) Status Reason Specialty Diagnoses / Procedures Referred By Contact Referred To Contact Authorized Nutrition Diagnoses Diet controlled gestational diabetes mellitus (GDM) in second trimester Lelo Gallegos MD [address] [place] [address] Nutrition Services [address] [place] [address] [facility] for visit Narrative* Consultation (Routine) - Pending Review Specialty Diagnoses / Procedures Referred By Contac t Referred To Contact Gastroenterology Diagnoses Hemorrhoids, unspecified hemorrhoid type Germania Galaviz, AUDIO TECHNICIAN [address] [place] [address] Holland Ann MD [address] [place] [address] Referral ID Status Reason Start Date Expiration Date V isits Requested Visits Authorized [id number] Pending Review 12/29/2020 01/14/2022 1 1 [facility] Assessments Diagnosis Accidental overdose of heroin, initial [...] FoundDocuments on File Type Date Recorded Patient Director Athletic Expl anation Advance Directives and Living Will Power of Scallop Cutter Machine Documents on File Type Date Recorded Patient Director Athletic Expl anation Advance Directives and Living Will 06/14/2019 7:25 AM does not have 3/13/2 0 Latest Code Status on File Code Status Date Activated Date Inactivated Comments Full Code 06/15/2019 9:29 AM 06/17/2019 4:38 PM Full Code - Unverified 06/14/2019 8:35 AM 06/15/2019 9:29 AM Documents on File Type Date Recorded Patient Director Athletic Expl anation Advance Directives and Living Will 06/14/2019 7:25 AM does not have 3/13/2 0 Latest Code Status on File Code Status Date Activated Date Inactivated Comments Full Code 06/15/2019 9:29 AM 06/17/2019 4:38 PM Full Code - Unverified 06/14/2019 8:35 AM 06/15/2019 9:29 AM Documents on File Type Date Recorded Patient Director Athletic Expl anation Advance Directives and Living Will 06/20/2019 1:10 PM does not have 3/13/2 0 Documents on File Type Date Recorded Patient Director Athletic Expl anation ACP-Advance Directive ACP-Power of Scallop Cutter Machine Documents on File Type Date Recorded Patient Director Athletic Expl anation Advance Directives and Living Will 06/20/2019 1:10 PM does not have 3/13/2 0 Documents on File Type Date Recorded Patient Director Athletic Expl anation Advance Directives and Living Will 08/28/2020 5:58 AM does not have 3/13/2 0 Latest Code Status on File Code Status Date Activated Date Inactivated Comments Full Code 08/28/2020 11:15 AM 08/30/2020 11:53 AM Full Code 08/28/2020 5:31 AM 08/28/2020 11:07 AM Full Code 06/15/2019 9:29 AM 06/17/2019 4:38 PM Documents on File Type Date Recorded Patient Director Athletic Expl anation Advance Directives and Living Will 08/28/2020 5:58 AM does not have 3/13/2 0 Latest Code Status on File Code Status Date Activated Date Inactivated Comments Full Code 08/28/2020 11:15 AM 08/30/2020 11:53 AM Full Code 08/28/2020 5:31 AM 08/28/2020 11:07 AM Full Code 06/15/2019 9:29 AM 06/17/2019 4:38 PM Documents on File Type Date Recorded Patient Director Athletic Expl anation Advance Directives and Livin g Will 05/15/2021 12:00 AM Latest Code Status on File Code Status Date Activated Date Inactivated Comments Full Code 10/05/2023 9:02 PM Hospital Course * Savita Stiles PA-C - 06/17/2019 10:12 AM EDT [facility] DISCHARGE SUMMARY Tia Levin Account: [id number] Admitted: 06/14/2019 Discharge Date/Time: 06/17/19 / 10:12 [...] amphetamine and heroine use who presented to [facility] 06/14/19 with complaints of abdominal pain and [...] home on 06/17/19. 1. Acute Liver Injury: [facility] AST 1116 ALT 665 Alk phos 255 [...] for all vitals, diagnostic data, and data quality consultant notes. I discussed patient's case with Dr. Gregorio, Dr. Hay (GI) and RN. Discharge Medications Medication List ASK your doctor about these medications naltrexone microspheres Commonly known as: VivitroL Inject 380 (three hundred eighty) mg into the shoulder, thigh, or buttocks every 30 (thirty) days . Physician(s) Family: Physician No, Phone: None, Address: [facility] Up: Javier Hay MD [address] [facility] [address] Follow up Repeat weekly CBC, CMP and PT/INR for the next 3-4 weeks then follow up out patient with Dr. Hay. Laboratory Follow Up by [facility]: Weekly labs for CBC, CMP, PT/INR Additional Information: Patient seen and examined day of discharge. For more information regarding patient's care, including complete radiology reports, please contact [facility] at Patient instructions, including activity, [...] amphetamine and heroine use who presented to [facility] 06/14/19 with complaints of abdominal pain and [...] EDT RESOURCES FOR PRIMARY CARE [facility] Primary Care Closed Opens tomorrow [address], [place] [address] [facility] [place] [address] [address] [place] [address] DIRECTIONS WEBSITE [facility] Walk-In Care Closed Opens tomorrow 11 AM [address], [place] [address] documented in this encounter* Instructions* Adia Dillon, [...] Opioid Use Disorder: Medication-Assisted Treatment: General Info (Mauritian) documented in this encounter* Attachments The following attachments cannot be sent through Care Everywhere. * Bacterial Vaginosis (Mauritian) * Trichomoniasis (Mauritian) documented in this encounter* Attachments The following attachments cannot be sent through Care Everywhere. * Dental Surgery: Generic: Post-op (Mauritian) documented in this encounter* Attachments The following attachments cannot be sent through Care Everywhere. * Bronchitis (Mauritian) * Pneumonia (Mauritian) documented in this encounter* Attachments The following attachments cannot be sent through Care Everywhere. * Poison [place] - [place] - [place] (Mauritian) documented in this encounter History of Present Illness * Javier Hay MD - 06/17/2019 9:59 AM EDT GASTROENTEROLOGY DAILY PROGRESS NOTE 1 Patient Name: Tia Levin MR #: [id number] Assessment/Plan: Elevated LFTs Assessment & Plan 29yo F with PMHx IVDU and hepatitis C who presents from [facility] with elevated LFTs and imaging c/f possible [...] Inpatient Progress Note 06/17/2019 Tia Levin 1990 [id number] Assessment/Plan: Tia Khushi Levin is a 29 y.o. female with a history of amphetamine and heroine use who presented to [facility] 06/14/19 with complaints of abdominal pain and [...] diagnostics, vitals including pulse ox, and data quality consultant/other provider recommendations. No acute issues overnight [...] 2 Patient Name: Tia Levin MR #: [id number] Assessment/Plan: Elevated LFTs Assessment & Plan 29yo [...] 9:43 AM: Laboratory, Radiology, Medications and Transcriptions Jvaier Hay * Thad Auguste MD - 06/16/2019 9:38 AM EDT [facility] Inpatient Progress Note 06/16/2019 Tia Levin 1990 [id number] Assessment/Plan: Tia Levin is a 29 y.o. female with a history of amphetamine and heroine use who presented to [facility] 06/14/19 with complaints of abdominal pain and nausea. [facility] AST 1116 ALT 665 Alk phos 255 [...] labs, diagnostics, vitals including pulseox, and data quality consultant/other provider recommendations. No acute issues overnight [...] 2 Patient Name: Tia Levin MR #: [id number] Assessment/Plan: Elevated LFTs Assessment & Plan 29yo F with PMHx IVDU and hepatitis C who presents from [facility] with elevated LFTs and imaging c/f possible [...] Radiology, Medications and Transcriptions Aisha Hare CNP [facility] (for staff use only) * Indra Pruitt MD - 06/15/2019 10:43 AM EDT [facility] Progress Note 06/15/2019 Tia Levin 1990 [id number] Assessment/Plan: Tia Levin is a 29 y.o. female with a history of amphetamine and heroine use who presented to [facility] 06/14/19 with complaints of abdominal pain and nausea. [facility] AST 1116 ALT 665 Alk phos 255 T bili 6.5 Lipase 8. CTAP revealed pericholecystic fluid vs GB wall thickening, no gallstones or hepatic pathology noted. Patient transferred to [facility] 06/14/2019 for further treatment and evaluation. 1. Acute Liver Injury: [facility] AST 1116 ALT 665 Alk phos 255 [...] Disposition: home Estimated discharge date: TB Subjective: Patient new to me. I reviewed [...] 7 days Lab Units 06/15/19 04506/14/19 1037 WBC K/mcL 5.74 7.28 HGB g/dL [...] have a PCP and refused a case supervisor consult for assistance. Verified insurance and Rx. [...] spoke with patient about going to any [facility] to have her lab [...] daily (lemon water) Occasional iced coffee at [employer]. Was drinking a lot of Mountain Dew and Energy drinks prior to but stopped. Meals Away From Home - most days, fast food Past Medical History: Past Medical History: Diagnosis Date Anxiety Depression Infectious viral hepatitis hep c PTSD (Post-Traumatic Stress Disorder) History From: History obtained from patient and chart review. Current/Pertinent Medications: prescription for Current Outpatient Medications Ordered in [facility] Medication Sig Dispense Refill amoxicillin (AMOXIL) [...] index (BMI) of 40.0 or higher ([facility]) Farhat Vang MD [phone] Referral ID Status Reason Start Date Expiration Date Visits Requested Visits Authorized [id number] Authorized Specialty Services Required/Pat ient's Best Interest 04/16/2021 04/16/2022 1 1 Specialty Diagnoses / Procedures Referred By Contac t Referred To Contact Neurosurgery Diagnoses Chronic bilateral low back pain without sciatica Farhat Vang MD [address] [phone] Carina Kline MD [address] [place] [address] Referral ID Status Reason Start Date Expiration Date Visits Requested Visits Authorized [id number] Authorized Specialty Services Required/Pat ient's Best Interest 05/14/2021 05/14/2022 1 1 Specialty Diagnoses / Procedures Referred By Contac t Referred To Contact Rehabilitation Diagnoses Chronic bilateral low back pain without sciatica Farhat Vang MD [address] [address] Referral ID Status Reason Start Date Expiration Date Visits Requested Visits Authorized [id number] Authorized Specialty Services Required/Pat ient's Best Interest 05/14/2021 05/14/2022 1 1 Specialty Diagnoses / Procedures Referred By Contac t Referred To Contact Diagnoses At risk for obstructive sleep apnea Farhat Vang MD [address] [address] Gabriel Jacinto MD [address] [place] [address] Referral ID Status Reason Start Date Expiration Date Visits Requested Visits Authorized [id number] Authorized Specialty Services Required/Pat jvnt's Best Interest 05/14/2021 05/14/2022 1 1 Additional [...] in second trimester Lelo Gallegos MD [address] [place] [address] Nutrition Services [address] [place] [address] Reason Comments Gestational Diabetes Status Reason Specialty Diagnoses / Procedures Referred By Contact Referred To Contact Closed Endocrinology Diagnoses Diet controlled gestational diabetes mellitus (GDM) in second trimester Roslyn Stevenson MD [address] [place] [address] Lelo Gallegos MD [address] [place] [address] Reason Comments Pharyngitis sore throat and head [...] index (BMI) of 40.0 or higher ([facility]) Farhat Vang MD [address] [facility] [address] [place] [address] Nutrition [address] [place] [phone] Referral ID Status Reason Start Date Expiration Date Visits Requested Visits Authorized [id number] Authorized Specialty Services Required/Pat jvnt's Best Interest 04/16/2021 04/16/2022 3 3 Reason [...] and Physical Note 06/14/19 Tia Levin 1990 [id number] Assessment/Plan: Tia Levin is a 29 y.o. female with a history of amphetamine and heroine use who presented to [facility] 06/14/19 with complaints of abdominal pain and nausea. [facility] AST 1116 ALT 665 Alk phos 255 T bili 6.5 Lipase 8. CTAP revealed pericholecystic fluid vs GB wall thickening, no gallstones or hepatic pathology noted. Patient transferred to [facility] 06/14/2019 for further treatment and evaluation. 1. Elevated LFTs: [facility] AST 1116 ALT 665 Alk phos 255 T bili 6.5 (normal 02/2019). [facility] CTAP as noted above. RUQ U/S 06/14/19 [...] amphetamine and heroine use who presented to [facility] 06/14/19 with complaints of abdominal pain and [...] diagnostics, vitals including pulse ox, and data quality consultant/other provider recommendations. Discussed with collaborating physician [...] file Gets together: Not on file Attends hoahaoism service: Not on file Active member of [...] including documentation from previous hospitalizations and data quality consultant recommendations as summarized below. 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 I discussed the case with the resident/SCIENTIFIC ARTIST and agree with the findings and plan as documented in his/her note and/or any note I supplied. Associated Order(s): IP CONSULT TO GASTROENTEROLOGY GASTROENTEROLOGY CONSULT NOTE 4 Patient Name: Tia Levin Admit Date: MR #: [id number] : 1990 Physicians: Physician Judy (Family); Brie Moreno MD (Referring) Consult Ordered By: Franny Sims PA-C Assessment and Plan: Other Elevated LFTs Assessment & Plan 29yo F with PMHx IVDU and hepatitis C who presents from [facility] with elevated LFTs and imaging c/f possible [...] IVDU and hepatitis C who presents from [facility] with elevated LFTs and imaging c/f possible [...] file Gets together: Not on file Attends hoahaoism service: Not on file Active member of [...] Invalid input(s): CO2, LABALBU Aisha Hare CNP [facility] (for staff use only) Associated [...] including documentation from previous hospitalizations and data quality consultant recommendations as summarized below. Briefly, patient [...] secti on and content) ED PROVIDER NOTE [facility] EMERGENCY DEPARTMENT NAME: Tia Levin AGE: 29 y.o. : 1990 VISIT DATE: 08/13/2019 CSN: [id number] PCP: Physician No Chief Complaint Patient presents with Drug Overdose This is a 29-year-old female brought to the ER via EMS for evaluation. Time my exam patient is alert and oriented. She states she was in the [employer] parking lot bent over in her car [...] file Gets together: Not on file Attends hoahaoism service: Not on file Active member of [...] nursing note reviewed. Exam conducted with a blender laborer present (Nurses at the bedside). Constitutional: General: [...] people with drug addiction. [address] [facility] [address] Contact information for after-discharge care Follow-up information has not been specified. Adia Dillon CNP 08/13/191948 Pt brought in by [facility], states she was found by [facility] [...] section and content) DATE CREATED AUTHOR 08/21/2019 [facility] DATE CREATED AUTHOR AUTHOR'S ORGANIZ ATION 02/15/2021 [facility] DATE CREATED AUTHOR AUTHOR'S ORGANIZ ATION 05/18/2021 [facility] DATE CREATED AUTHOR AUTHOR'S ORGANIZ ATION 07/02/2021 [facility] DATE CREATED AUTHOR AUTHOR'S ORGANIZ ATION 07/09/2021 [facility] DATE CREATED AUTHOR AUTHOR'S ORGANIZ ATION 07/05/2022 [facility] DATE CREATED AUTHOR AUTHOR'S ORGANIZ ATION 05/14/2023 [facility] DATE CREATED AUTHOR AUTHOR'S ORGANIZ ATION 10/07/2023 [facility] DATE CREATED AUTHOR AUTHOR'S ORGANIZ ATION 11/25/2023 [facility] EPIC DATE CREATED AUTHOR AUTHOR'S ORGANIZ ATION 11/26/2023 [facility] Ordered Prescriptions (unrec ognized section and content) [...] at 1830 183 (Given - Provid er: aZyda Beck RN) Scheduled Medication Order 05/09/2022 05/10/2022 [...] on Tue05/19/22 at 2002, Until Discontinued, Irritation 2014 (Given - Provid er: Juliana Stewart [...]
Care Teams (unrecognized sec tion and content) Potato Chip Fryer Relationship Specialty Start Date End Date No, Physician [facility] PCP - General 12/29/20 Germania Galaviz, AUDIO TECHNICIAN [address] [place] [phone] Nurse Practitioner Obstetrics/Gynecology 11/01/19 Potato Chip Fryer Relationship Specialty Start Date End Date No, Physician [facility] PCP - General 12/29/20 Germania Galaviz, AUDIO TECHNICIAN [address] [place] [address] Nurse Practitioner Obstetrics/Gynecology 11/01/19 Potato Chip Fryer Relationship Specialty Start Date End Date Farhat Vang MD [address] [address] PCP - General Family Medicine 04/16/21 Germania Galaviz, AUDIO TECHNICIAN [address] [place] [address] Nurse Practitioner Obstetrics/Gynecology 11/01/19 Radha Pantoja MD [address] [place] [address] Washer Cutter Obstetrics/Gynecology 02/02/21 Yvonne Santos MD [address] [facility] [address] [place] [address] Washer Cutter Obstetrics/Gynecology 02/02/21 Regla Dias, IRAIDA [address] [place] [address] Music Worker Obstetrics/Gynecology 02/02/21 Potato Chip Fryer Relationship Specialty Start Date End Date Farhat Vang MD [address] [facility] [address] [place] [address] PCP - General Family Medicine 04/16/21 Germania Galaviz, AUDIO TECHNICIAN [address] [place] [address] Nurse Practitioner Obstetrics/Gynecology 11/01/19 Radha Pantoja MD [address] [place] [address] Washer Cutter Obstetrics/Gynecology 02/02/21 Yvonne Santos MD [address] [place] [address] Washer Cutter Obstetrics/Gynecology 02/02/21 LarissaRegla alcazar, [facility] [address] [facility] [place] [address] Music Worker Obstetrics/Gynecology 02/02/21 Potato Chip Fryer Relationship Specialty Start Date End Date Farhat Vang MD [address] [facility] [address] [place] [address] PCP - General Family Medicine 04/16/21 Germania Galaviz, [facility] [address] [place] [address] Nurse Practitioner Obstetrics/Gynecology 11/01/19 Radha Pantoja MD [address] [place] [place] [address] Washer Cutter Obstetrics/Gynecology 02/02/21 Yvonne Santos MD [address] [facility] [address] [place] [address] Washer Cutter Obstetrics/Gynecology 02/02/21 Larissa, Reglasoren Arriaga, [facility] [address] [place] [address] Music Worker Obstetrics/Gynecology 02/02/21 Potato Chip Fryer Relationship Specialty Start Date End Date Linda Sheppard DO [address] [facility] [place] [address] PCP - General Family Medicine 09/04/22 Potato Chip Fryer Relationship Specialty Start Date End Date Linda Sheppard DO [address] [facility] [place] [address] PCP - General Family Medicine 09/04/22 Potato Chip Fryer Relationship Specialty Start Date End Date Linda Sheppard DO [address] [place] [address] PCP - General Family Medicine 09/04/22 FOR [...] THE PRIMARY CLINICAL RECORDS. [facility]. provides no warranty or guarantee of the accuracy or completeness of information in this document.
--- NOTE | 2023-11-29 09:00 | US_ITS ---
[address] [address] Patient Name: TIA MONROE MRN: [id number] date: 1990 Sex: F Assigned Patient Location: [facility] Current Patient Location: [facility] Accession/Order Number: [id number] Exam Date: 11/29/2023 09:01 Report Date: 11/29/2023 10:45 At the request of: DARWIN MONROY Procedure: US OB BPP w non-stress EXAMINATION: US OB BPP w non-stress, US OB BPP w non-stress HISTORY:Monochorionic diamniotic twin O30.039 COMPARISON: Ultrasound OB biophysical profile 11/22/2023 TECHNIQUE: Ultrasound biophysical profile was performed in the radiology department. BREATHING MOVEMENTS: 2 / 2 GROSS BODY MOVEMENTS: 2 / 2 TONE: 2 / 2 QUALITATIVE AMNIOTIC FLUID VOLUME: 2 / 2 PRESENTATION: Transverse / Transverse HEART RATE: 148 bpm / 158 bpm AMNIOTIC FLUID VOLUME: Deepest pocket 8.3 x 4.1 cm / Deepest Pocket: 5.3 x 3.8 cm GESTATIONAL AGE: 34 weeks 5 days US/US OB BPP w non-stress IMPRESSION: Total biophysical profile score: Baby A: 8 / Baby B: 8 Electronically authenticated by: BETTYE DANIELS Date: 11/29/2023 10:45
--- NOTE | 2023-11-29 09:00 | US_ITS ---
[address] [address] Patient Name: TIA MONROE MRN: [id number] date: 1990 Sex: F Assigned Patient Location: [facility] Current Patient Location: [facility] Accession/Order Number: [id number] Exam Date: 11/29/2023 09:01 Report Date: 11/29/2023 10:45 At the request of: DARWIN MONROY Procedure: US OB BPP w non-stress EXAMINATION: US OB BPP w non-stress, US OB BPP w non-stress HISTORY:Monochorionic diamniotic twin O30.039 COMPARISON: Ultrasound OB biophysical profile 11/22/2023 TECHNIQUE: Ultrasound biophysical profile was performed in the radiology department. BREATHING MOVEMENTS: 2 / 2 GROSS BODY MOVEMENTS: 2 / 2 TONE: 2 / 2 QUALITATIVE AMNIOTIC FLUID VOLUME: 2 / 2 PRESENTATION: Transverse / Transverse HEART RATE: 148 bpm / 158 bpm AMNIOTIC FLUID VOLUME: Deepest pocket 8.3 x 4.1 cm / Deepest Pocket: 5.3 x 3.8 cm GESTATIONAL AGE: 34 weeks 5 days US/US OB BPP w non-stress IMPRESSION: Total biophysical profile score: Baby A: 8 / Baby B: 8 Electronically authenticated by: BETTYE DANIELS Date: 11/29/2023 10:45
[2023-11-29 09:33] VITALS: BP 119/66; PULSE 100
== END 2023-11-29 10:23 | disposition home or self-care (01) ==
LOC: US 07:17 → FBC 08:58
PROVIDERS: Visit Provider Obstetrics & Gynecology
DX: O30.033 Twin pregnancy, monochorionic/diamniotic, third trimester (principal); Z3A.34 34 weeks gestation of pregnancy
CPT/HCPCS: 76818

== ENCOUNTER 2023-12-02 07:09 | Outpatient (OUT) | payer BC, SELFPAY ==
--- OUTSIDE RECORDS SUMMARY | 2023-12-02 07:12 | XMS_ITS | CCD ---
Author Organization [facility] ion Partnership [employer] [facility] Care Team Providers Care Cardboard Inserter Name Role Phone Unavailable Primary Care Provider Unavailabl e No, Physician Primary Care Provider Unavailabl e HODA MADERA Unavailable Unavailable Primary Care Provider Unavailabl e No, Physician Primary Care Provider Unavailabl Germania Becerra Unavailable Roslyn Stevenson Unavailable Radha Pantoja Unavailable Yvonne Santos Unavailable [phone] Larissa, Regla Corina Unavailable No, Physician Primary Care Provider UnavailGermania Rodriguez CNP Unavailable Roslyn Stevenson MD Unavailable Radha Pantoja MD Unavailable Yvonne Santos MD Unavailable Larissa CNM, Ergla Corina Unavailable Unavailable Primary Care Provider UnavailGermania [...] Pantoja MD Unavailable Yvonne Santos MD Unavailable [phone] Larissa KHOURY, Regla Corina Unavailable Ciera PEDRAZA, [...] Care Provider UnavailLinda Marie Primary Care Physician [phone] ELIANA ., DR GRANADOS Consulting Unavailable ELIANA [...] Unavailable Linda Sheppard DO Primary Care Provider [phone] Jonathan Martinez Attending Unavailable Zac Fields Attending [...] Primary Care Unavailable BLAKE KAUFFMAN Referring Unavailable LNIDA SHEPPARD Primary Care Unavailable Medications Current Medications [...] day(s), # 14 tab(s), Refills(s) 0, Pharmacy: [facility], 160, cm, 05/11/23 21:53:00 EST, Height/Length [...] oral solution (2 sources) alpha-Adrenergic Agonist, Uncompetitive Q-sujewo-Y-aspartate Receptor Antagonist, Sigma-1 Agonist Start: End: take 5 mL by mouth four times daily as needed for cough brompheniramine-pse udoephedrine-DM (BROMFED DM) 2-30-10 MG/5ML syrup Take 5 mLs by mouth 4 times daily as needed for Congestion or Cough 240 mL 1 10/12/2021 11/11/2021 Active Start: 11-07-2020 End: 11-12-2020 take 5 mL by mouth three times daily as needed for cough riupkusdfnsitma-likdjkxjuivbbmg-VU 2-30- 10 MG/5ML syrup Take 5 mLs [...] 0, (swish and spit; do not swallow), [facility], 160, cm, 05/11/23 21:53:00 EST, [...] Active Dextromethorphan / guaiFENesin (2 sources) Uncompetitive J-ggxwyg-P-asparta te Receptor Antagonist, Sigma-1 Agonist End: 06-24-2020 [...] day(s), # 15 tab(s), Refills(s) 0, Pharmacy: [facility], 160, cm, 05/13/23 11:33:00 EST, Height/Length [...] for Pain. 0 05/10/2023 Discontinued (LIST CLEANUP) [id number] 200 actuat albuterol 0.09 mg/actuat metered dose [...] Every 4 hours PRN, indigestion, Starting [facility] 06/14/19 at 0831 azithromycin 250 mg [...] Daily PRN, constipation, For constipation., Starting [facility] 06/14/19 at 0831 naloxone (NARCAN) injection [...] Translations: [Accidental overdose of heroin, initial encounter ([facility])] Episodic Substance-related disorders (1 source) Opioid [...] Coag (Bld) [Time] 29.8 s Normal 23.9-33.8 [facility] Comment on above: Result Comment: IV Heparin Therapy Range: 62.0-94.0 Performed By: #### P T, PTT, BMP, CDP, TROPI #### [facility] [address] [place] [address] Worship Pastor: Guero Sandoval MD Basic Metabolic Profon 10-04 Anion gap [Moles/Vol] 13 mmol/L Normal 11-21 [facility] Comment on above: Performed By: #### P T, PTT, BMP, CDP, TROPI #### [facility] [address] [place] [address] Worship Pastor: Guero Sandoval MD BUN/CRE Ratio Result cannot be calculated, Creatinine below linear range. Normal 11-24 [facility] Comment on above: Performed By: #### P T, PTT, BMP, CDP, TROPI #### [facility] [address] [place] [address] Worship Pastor: Guero Sandoval MD Calcium [Mass/Vol] 8.7 mg/dL Normal 8.6-10.4 [facility] Comment on above: Performed By: #### P T, PTT, BMP, CDP, TROPI #### [facility] [address] [place], [place] [phone] Worship Pastor: Guero Sandoval MD Chloride [Moles/Vol] 105 mmol/L Normal 98-107 [facility] Comment on above: Performed By: #### P T, PTT, BMP, CDP, TROPI #### [facility] [address] [place], [place] [phone] Worship Pastor: Guero Sandoval MD CO2 [Moles/Vol] 18 mmol/L Low 20-31 [facility] Comment on above: Performed By: #### P T, PTT, BMP, CDP, TROPI #### [facility] [address] [place], [place] [phone] Worship Pastor: Guero Sandoval MD Creatinine [Mass/Vol] mg/dL Low 0.5-0.9 [facility] Comment on above: Performed By: #### P T, PTT, BMP, CDP, TROPI #### [facility] [address] [place], [place] [id number] Worship Pastor: Guero Sandoval MD eGFR Can not be calculated Normal >60 [facility] Comment on above: Result Comment: These [...] P T, PTT, BMP, CDP, TROPI #### [facility] [address] [place], [place] [phone] Worship Pastor: Guero Sandoval MD Glucose [Mass/Vol] 111 mg/dL High 70-99 [facility] Comment on above: Performed By: #### P T, PTT, BMP, CDP, TROPI #### [facility] [address] [place], [place] [phone] Worship Pastor: Guero Sandoval MD Potassium [Moles/Vol] 3.8 mmol/L Normal 3.7-5.3 [facility] Comment on above: Performed By: #### P T, PTT, BMP, CDP, TROPI #### [facility] [address] [place] [address] Worship Pastor: Guero Sandoval MD Sodium [Moles/Vol] 136 mmol/L Normal 135-144 [facility] Comment on above: Performed By: #### P T, PTT, BMP, CDP, TROPI #### [facility] [address] [place] [address] Worship Pastor: Guero Sandoval MD Urea nitrogen [Mass/Vol] 6 mg/dL Normal 6-20 [facility] Comment on above: Performed By: #### P T, PTT, BMP, CDP, TROPI #### [facility] [address] [place] [phone] Worship Pastor: Guero Sandoval MD Brain Natri. Peptideon 10-04 Pro-BNP <36 Normal 0-300 [facility] Comment on above: Result Comment: An a ge-independent cutoff point of 300 pg/ml has a 98% negative predictive value excluding acute heart failure. Performed By: #### B TROUSSEAU CONSULTANT, TROPI #### [facility] [address] [place] [address] Worship Pastor: Thor Hernández MD CBC with Diffon 10-05-2023 Abs. Basophil 0.04 k/uL Normal 0.00-0.20 [facility] Comment on above: Performed By: #### P T, PTT, BMP, CDP, TROPI #### [facility] [address] [place] [phone] Worship Pastor: Guero Sandoval MD Abs.Imm.Granulocyte 0.16 k/uL Normal 0.00-0.30 [facility] Comment on above: Performed By: #### P T, PTT, BMP, CDP, TROPI #### [facility] [address] [place], [place] [phone] Worship Pastor: Guero Sandoval MD Abs.Neutrophil (Seg) 8.05 k/uL High 2.5-7.0 [facility] Comment on above: Performed By: #### P T, PTT, BMP, CDP, TROPI #### [facility] [address] [place] [address] Worship Pastor: Guero Sandoval MD Basophils/100 WBC (Bld) 0 % Normal 0-2 M [facility] [place] Comment on above: Performed By: #### P T, PTT, BMP, CDP, TROPI #### [facility] [address] [place], [place] [phone] Worship Pastor: Guero Sandoval MD Eosinophils (Bld) [#/Vol] 0.08 10*3/uL Normal 0.00-0.4 0 [facility] Comment on above: Performed By: #### P T, PTT, BMP, CDP, TROPI #### [facility] [address] [place] [address] Worship Pastor: Guero Sandoval MD Eosinophils/100 WBC (Bld) 1 % Normal 0-5 [facility] Comment on above: Performed By: #### P T, PTT, BMP, CDP, TROPI #### [facility] [address] [place], [place] [phone] Worship Pastor: Guero Sandoval MD Erythrocyte distribution width (RBC) [Ratio] 13.1 % Normal 12.1-15.2 [facility] Comment on above: Performed By: #### P T, PTT, BMP, CDP, TROPI #### [facility] [address] [place] [phone] Worship Pastor: Guero Sandoval MD Hematocrit (Bld) [Volume fraction] 28.8 % Low 36.0-46.0 [facility] Comment on above: Performed By: #### P T, PTT, BMP, CDP, TROPI #### [facility] [address] [place] [phone] Worship Pastor: Guero Sandoval MD Hemoglobin (Bld) [Mass/Vol] 9.8 g/dL Low 12.0-16.0 [facility] Comment on above: Performed By: #### P T, PTT, BMP, CDP, TROPI #### [facility] [address] [place] [phone] Worship Pastor: Guero Sandoval MD Immature granulocytes/100 WBC (Bld) 2 % Normal 0-5 [facility] Comment on above: Performed By: #### P T, PTT, BMP, CDP, TROPI #### [facility] [address] [place] [phone] Worship Pastor: Guero Sandoval MD Lymphocytes (Bld) [#/Vol] 1.61 10*3/uL Normal 1.00-4.8 0 [facility] Comment on above: Performed By: #### P T, PTT, BMP, CDP, TROPI #### [facility] [address] [place] [phone] Worship Pastor: Guero Sandoval MD Lymphocytes/100 WBC (Bld) 15 % Normal 15-40 [facility] Comment on above: Performed By: #### P T, PTT, BMP, CDP, TROPI #### [facility] [address] [place] [phone] Worship Pastor: Guero Sandoval MD MCH (RBC) [Entitic mass] 27.7 pg Normal 26.0-34.0 [facility] Comment on above: Performed By: #### P T, PTT, BMP, CDP, TROPI #### [facility] [address] [place] [address] Worship Pastor: Guero Sandoval MD MCHC (RBC) [Mass/Vol] 34.0 g/dL Normal 31.0-37.0 [facility] Comment on above: Performed By: #### P T, PTT, BMP, CDP, TROPI #### [facility] [address] [place] [address] Worship Pastor: Guero Sandoval MD MCV (RBC) [Entitic vol] 81.4 fL Normal 80.0-100.0 [facility] Comment on above: Performed By: #### P T, PTT, BMP, CDP, TROPI #### [facility] [address] [place] [address] Worship Pastor: Guero Sandoval MD Monocytes (Bld) [#/Vol] 0.77 10*3/uL Normal 0.00-1.00 [facility] Comment on above: Performed By: #### P T, PTT, BMP, CDP, TROPI #### [facility] [address] [place] [address] Worship Pastor: Guero Sandoval MD Monocytes/100 WBC (Bld) 7 % Normal 4-8 M [facility] [place] Comment on above: Performed By: #### P T, PTT, BMP, CDP, TROPI #### [facility] [address] [place] [address] Worship Pastor: Guero Sandoval MD Neutrophil (Seg) 75 % Normal 47-75 [facility] Comment on above: Performed By: #### P T, PTT, BMP, CDP, TROPI #### [facility] [address] [place] [address] Worship Pastor: Guero Sandoval MD Platelet mean volume (Bld) [Entitic vol] 10.2 fL Normal 6.0-12.0 [facility] Comment on above: Performed By: #### P T, PTT, BMP, CDP, TROPI #### [facility] [address] [place] [address] ([phone] Worship Pastor: Guero Sandoval MD Platelets (Bld) [#/Vol] 275 10*3/uL Normal 140-450 [facility] Comment on above: Performed By: #### P T, PTT, BMP, CDP, TROPI #### [facility] [address] [place] [address] ([phone]) Worship Pastor: Guero Sandoval MD RBC (Bld) [#/Vol] 3.54 10*6/uL Low 4.00-5.20 [facility] Comment on above: Performed By: #### P T, PTT, BMP, CDP, TROPI #### [facility] [address] [place] [address] Worship Pastor: Guero Sandoval MD WBC (Bld) [#/Vol] 10.7 10*3/uL Normal 3.5-11.0 [facility] Comment on above: Performed By: #### P T, PTT, BMP, CDP, TROPI #### [facility] [address] [place] [address] Worship Pastor: Guero Sandoval MD CT CHEST PULMONARY EMBOLISM [...] MD 10/05/23 Final result Normal [facility] Liver Profileon 10-05-2023 Albumin [Mass/Vol] 3.0 g/dL Low 3.5-5.2 [facility] Comment on above: Performed By: #### L IVP #### [facility] [address] [place] [address] Worship Pastor: Guero Sandoval MD Alkaline Phos 74 U/L Normal 35-104 [facility] Comment on above: Performed By: #### L IVP #### [facility] [address] [place] [address] Worship Pastor: Guero Sandoval MD ALT [Catalytic activity/Vol] U/L Low 5-33 [facility] Comment on above: Performed By: #### L IVP #### [facility] [address] [place], [place] [id number] Worship Pastor: Guero Sandoval MD AST [Catalytic activity/Vol] 9 U/L Normal <32 [facility] Comment on above: Performed By: #### L IVP #### [facility] [address] [place], [place] [phone] Worship Pastor: Guero Sandoval MD Bilirubin [Mass/Vol] 0.3 mg/dL Normal 0.3-1.2 [facility] Comment on above: Performed By: #### L IVP #### [facility] [address] [place], [place] [phone] Worship Pastor: Guero Sandoval MD Bilirubin, Indirect Can not be calculated Normal 0.0-1.0 [facility] Comment on above: Performed By: #### L IVP #### [facility] [address] [place], [place] [id number] Worship Pastor: Guero Sandoval MD Bilirubin.indirect [Mass/Vol] mg/dL Normal <0.3 [facility] Comment on above: Performed By: #### L IVP #### [facility] [address] [place], [place] [phone] Worship Pastor: Guero Sandoval MD Protein [Mass/Vol] 5.9 g/dL Low 6.4-8.3 [facility] Comment on above: Performed By: #### L IVP #### [facility] [address] [place], [place] [phone] Worship Pastor: Guero Sandoval MD PTon 10-05-2023 INR Coag (PPP) [Relative time] 1.0 {INR} Normal [facility] Comment on above: Result Comment: Therapeutic Range: Moderate Anticoagulant Intensity: INR = 2.0-3.0 High Anticoagulant Intensity: INR = 2.5-3.5 Performed By: #### P T, PTT, BMP, CDP, TROPI #### [facility] [address] [place] [address] Worship Pastor: Guero Sandoavl MD PT Coag (PPP) [Time] 13.6 s Normal 11.5-14.2 [facility] Comment on above: Performed By: #### P T, PTT, BMP, CDP, TROPI #### [facility] [address] [place] [address] Worship Pastor: Guero Sandoval MD Troponinon 10-05-2023 Troponin, High Sens <6 Normal 0-14 [facility] Comment on above: Result Comment: High Sensitivity Troponin values cannot be compared with other Troponin methodologies. Performed By: #### B TROUSSEAU CONSULTANT, TROPI #### [address] [id number] Worship Pastor: Thor Hernández MD Troponin, High Sens <6 Normal 0-14 [facility] Comment on above: Result Comment: High Sensitivity Troponin values cannot be compared with other Troponin methodologies. Performed By: #### P T, PTT, BMP, CDP, TROPI #### [facility] [address] [place] [address] Worship Pastor: Guero Sandoval MD UA w/Reflex Cultureon 2023 Bilirubin, SemiQt,Ur Negative Normal NEG [facility] Comment on above: Performed By: #### U MICAO, UAX #### [facility] [employer] [address] [place] [address] Worship Pastor: Thor Hernández MD Blood, Urine Negative Normal NEG [facility] Comment on above: Performed By: #### U MICAO, UAX #### [facility] [employer] [address] [place] [address] Worship Pastor: Thor Hernández MD Clarity (U) Cloudy Abnormal CLEAR [facility] Comment on above: Performed By: #### U MICAO, UAX #### [facility] [address] [place] [address] Worship Pastor: Thor Hernández MD Color (U) Yellow Normal YEL [facility] Comment on above: Performed By: #### U MICAO, UAX #### [facility] [employer] [address] [place] [address] Worship Pastor: hTor Hernández MD Glucose Ql (U) 1+ mg/dL Abnormal NEG [facility] Comment on above: Performed By: #### U MICAO, UAX #### [facility] [employer] [address] [place] [address] Worship Pastor: Thor Hernández MD Ketones Ql (U) TRACE Abnormal NEG [facility] Comment on above: Performed By: #### U MICAO, UAX #### [facility] [employer] [address] [place] [address] Worship Pastor: Thor Hernández MD Leukocyte esterase Test strip Ql (U) Negative Normal NEG [facility] Comment on above: Performed By: #### U MICAO, UAX #### [facility] [employer] [address] [place] [address] Worship Pastor: Thor Hernández MD Nitrite,Ur Negative Normal NEG [facility] Comment on above: Performed By: #### U MICAO, UAX #### [facility] [employer] [address] [place] [address] Worship Pastor: Thor Hernández MD PH,Ur 6.0 Normal 5.0-8.0 [facility] Comment on above: Performed By: #### U MICAO, UAX #### [facility] [employer] [address] [place] [address] Worship Pastor: Thor Hernández MD Protein Ql (U) TRACE Abnormal NEG [facility] Comment on above: Performed By: #### U MICAO, UAX #### [facility] [employer] [address] [place] [address] Worship Pastor: Thor Hernández MD Spec. [place],Ur 1.028 Normal 1.005-1.030 [facility] Comment on above: Performed By: #### U MICAO, UAX #### [address] [address] Worship Pastor: Thor Hernández MD Urobilinogen,Ur Normal Normal 0.0-1.0 [facility] Comment on above: Performed By: #### U MICAO, UAX #### [address] [address] Worship Pastor: Thor Hernández MD Urinalysis,Microon 4 Bacteria MODERATE Abnormal NONE [facility] Comment on above: Performed By: #### U MICAO, UAX #### [address] [address] Worship Pastor: Thor Hernández MD Casts 2 TO 5 HYALINE Normal 0-8 [facility] Comment on above: Result Comment: Refe rence range defined for non-centrifuged specimen. Performed By: #### U MICAO, UAX #### [address] [address] Worship Pastor: Thor Hernández MD Epithelial cells LM Ql (Urine sed) 20 TO 50 Normal 0-5 [facility] Comment on above: Performed By: #### U MICAO, UAX #### [address] [address] Worship Pastor: Thor Hernández MD Urine RBC's 0 TO 2 Normal 0-4 [facility] Comment on above: Result Comment: Refe rence range defined for non-centrifuged specimen. Performed By: #### U MICAO, UAX #### [address] [address] Worship Pastor: Thor Hernández MD Urine WBC's 5 TO 10 Normal 0-5 [facility] Comment on above: Performed By: #### U KAYDEN UAX #### [facility] [address] [address] Worship Pastor: Thor Hernández MD AFP, Maternalon 07-28-2023 Determined by Ultrasound Normal [facility] Comment on above: Performed By: #### T SH, FT4, FT3 #### [facility] [address] [place] [address] Worship Pastor: Thor Hernández MD #### AAFPM #### [facility] [employer] [address] [place] [address] Worship Pastor: Thor Hernández MD [facility] [address] [place], [place] [phone] Worship Pastor: Tim Vizcarra MD Due Date SEE NOTE Normal [facility] Comment on above: Result Comment: Resu lts for Estimated Due Date: 01 06 24 Performed By: #### T SH, FT4, FT3 #### [facility] [address] [place] [address] Worship Pastor: Thor Hernández MD #### AAFPM #### [address] [address] Worship Pastor: Thor Hernández MD [facility] [address] [place] [address] Worship Pastor: Tim Vizcarra MD Family History No Normal [facility] Comment on above: Performed By: #### T SH, FT4, FT3 #### [facility] [address] [place] [address] Worship Pastor: Thor Hernández MD #### AAFPM #### [facility] [address] [place] [address] Worship Pastor: Thor Hernández MD [facility] [address] [place] [address] Worship Pastor: Tim Vizcarra MD Gestat Age (exact) 16 wks, 4 days Normal [facility] Comment on above: Performed By: #### T SH, FT4, FT3 #### [address] [address] Worship Pastor: Thor Hernández MD #### AAFPM #### [address] [address] Worship Pastor: Thor Hernández MD [address] [phone] Worship Pastor: Tim Vizcarra MD Ins Req Matern Diab No Normal [facility] Comment on above: Performed By: #### T SH, FT4, FT3 #### [address] [address] Worship Pastor: Thor Hernández MD #### AAFPM #### [address] [address] Worship Pastor: Thor Hernández MD [address] [phone] Worship Pastor: Tim Vizcarra MD Interpretation Screen Neg Normal [facility] Comment on above: Result Comment: (NOT E) INTERPRETATION: SCREEN NEGATIVE for open spina bifida Neural Tube Defects (NTD) Negative Pre-Test Post-Test Cutoff Neural Tube Defects Risks 1:452 1:3230 1:103 Comments: The risk of an open neural tube defect is less than the twin screening cut-off. This test was developed and its performance characteristics determined by [employer]. It has not been cleared or approved by the [place] Food and Drug Administration. This test was performed in a CLIA certified laboratory and is intended for clinical purposes. Performed By: #### T SH, FT4, FT3 #### [address] [address] Worship Pastor: Thor Hernández MD #### AAFPM #### [facility] [address] [place] [address] Worship Pastor: Thor Hernández MD [address] [phone] Worship Pastor: Tim Vizcarra MD [age] [facility] Comment on above: Performed By: #### T , FT4, FT3 #### [facility] [address] [place] [address] Worship Pastor: Thor Hernández MD #### AAFPM #### [facility] [address] [address] Worship Pastor: Thor Hernández MD [address] [address] Worship Pastor: Tim Vizcarra MD Maternal Race Nonblack [facility] Comment on above: Performed By: #### T SH, FT4, FT3 #### [facility] [address] [place] [address] Worship Pastor: Thor Hernández MD #### AAFPM #### [address] [address] Worship Pastor: Thor Hernández MD [address] [address] Worship Pastor: Tim Vizcarra MD Maternal Weight 239.0 lbs. [facility] Comment on above: Performed By: #### T SH, FT4, FT3 #### [facility] [address] [place] [address] Worship Pastor: Thor Hernández MD #### AAFPM #### [facility] [address] [address] Worship Pastor: Thor Hernández MD [address] [address] Worship Pastor: Tim Vizcarra MD MoM for AFP 1.71 Normal [facility] Comment on above: Performed By: #### T SH, FT4, FT3 #### [facility] [address] [place] [address] Worship Pastor: Thor Hernández MD #### AAFPM #### [address] [address] Worship Pastor: Thor Hernández MD [facility] [address] [place] [address] Worship Pastor: Tim Vizcarra MD Number of Fetuses Twins Normal [facility] Comment on above: Performed By: #### T SH, FT4, FT3 #### [address] [address] Worship Pastor: Thor Hernández MD #### AAFPM #### [address] [address] Worship Pastor: Thor Hernández MD [address] [phone] Worship Pastor: Tim Vizcarra MD Patient's AFP 46 ng/mL Normal [facility] Comment on above: Performed By: #### T SH, FT4, FT3 #### [address] [address] Worship Pastor: Thor Hernández MD #### AAFPM #### [address] [address] Worship Pastor: Thor Hernández MD [facility] [address] [place] [address] Worship Pastor: Tim Vizcarra MD Smoking Unknown Normal [facility] Comment on above: Performed By: #### T SH, FT4, FT3 #### [address] [address] Worship Pastor: Thor Hernández MD #### AAFPM #### [address] [address] Worship Pastor: Thor Hernández MD [address] [address] Worship Pastor: Tim Vizcarra MD Specimen See Note [facility] Comment on above: Result Comment: (NOT E) Initial sample Performed By: [employer] [address] [place] [address], [place] [address] Rejected Items Clerk: Morro Modi MD, PhD CLIA Number: [id number] Performed By: #### T SH, FT4, FT3 #### [address] [address] Worship Pastor: Thor Hernández MD #### AAFPM #### [address] [address] Worship Pastor: Thor Hernández MD [address] [phone] Worship Pastor: Tim Vizcarra MD [facility], [facility] 07-27-2023 Current Smoking INFORMATION NOT PROVIDED [facility] Comment on above: Performed By: #### T SH, FT4, FT3 #### [address] [address] Worship Pastor: Thor Hernández MD #### AAFPM #### [address] [address] Worship Pastor: Thor Hernández MD [address] [phone] Worship Pastor: Tim Vizcarra MD [facility] Comment on above: Performed By: #### T SH, FT4, FT3 #### [address] [address] Worship Pastor: Thor Hernández MD #### AAFPM #### [address] [address] Worship Pastor: Thor Hernández MD [facility] [address] [place] [address] Worship Pastor: Tim Vizcarra MD Diabetic Negative [facility] Comment on above: Performed By: #### T SH, FT4, FT3 #### [facility] [address] [place] [address] Worship Pastor: Thor Hernández MD #### AAFPM #### [address] [address] Worship Pastor: Thor Hernández MD [address] [phone] Worship Pastor: Tim Vizcarra MD [employer] Egg INFORMATION NOT PROVIDED [facility] Comment on above: Performed By: #### T SH, FT4, FT3 #### [address] [address] Worship Pastor: Thor Hernández MD #### AAFPM #### [address] [address] Worship Pastor: Thor Hernández MD [address] [phone] Worship Pastor: Tim Vizcarra MD Estimated Due Date 01/06/2024 [facility] Comment on above: Performed By: #### T SH, FT4, FT3 #### [facility] [address] [place] [address] Worship Pastor: Thor Hernández MD #### AAFPM #### [address] [address] Worship Pastor: Thor Hernández MD [address] [phone] Worship Pastor: Tim Vizcarra MD Family History Negative [facility] Comment on above: Performed By: #### T SH, FT4, FT3 #### [facility] [address] [place] [address] Worship Pastor: Thor Hernández MD #### AAFPM #### [facility] [address] [place] [address] Worship Pastor: Thor Hernández MD [facility] [address] [place], [place] [phone] Worship Pastor: Tim Vizcarra MD In Vitro Fertalizat INFORMATION NOT PROVIDED [facility] Comment on above: Performed By: #### T SH, FT4, FT3 #### [facility] [address] [address] Worship Pastor: Thor Hernández MD #### AAFPM #### [facility] [address] [address] Worship Pastor: Thor Hernández MD [address] [address] Worship Pastor: Tim Vizcarra MD LMP date 2023 [facility] Comment on above: Performed By: #### T SH, FT4, FT3 #### [facility] [address] [place] [address] Worship Pastor: Thor Hernández MD #### AAFPM #### [address] [address] Worship Pastor: Thor Hernández MD [facility] [address] [place], [place] [phone] Worship Pastor: Tim Vizcarra MD Maternal date 1990 [facility] Comment on above: Performed By: #### T SH, FT4, FT3 #### [facility] [address] [place] [address] Worship Pastor: Thor Hernández MD #### AAFPM #### [facility] [address] [place] [address] Worship Pastor: Thor Hernández MD [facility] [address] [place] [address] Worship Pastor: Tim Vizcarra MD Maternal Weight 239 Normal [facility] Comment on above: Performed By: #### T SH, FT4, FT3 #### [facility] [address] [place] [address] Worship Pastor: Thor Hernández MD #### AAFPM #### [address] [address] Worship Pastor: Thor Hernández MD [facility] [address] [place] [address] Worship Pastor: Tim Vizcarra MD Monochorionic Twins Positive Normal [facility] Comment on above: Performed By: #### T SH, FT4, FT3 #### [address] [address] Worship Pastor: Thor Hernández MD #### AAFPM #### [address] [address] Worship Pastor: Thor Hernández MD [facility] [address] [place] [address] Worship Pastor: Tim Vizcarra MD Patient Weight Units LBS Normal [facility] Comment on above: Performed By: #### T SH, FT4, FT3 #### [facility] [address] [place] [address] Worship Pastor: Thor Hernández MD #### AAFPM #### [address] [address] Worship Pastor: Thor Hernández MD [facility] [address] [place] [address] Worship Pastor: Tim Vizcarra MD Race (Maternal) Normal [facility] Comment on above: Performed By: #### T SH, FT4, FT3 #### [address] [address] Worship Pastor: Thor Hernández MD #### AAFPM #### [address] [address] Worship Pastor: Thor Hernández MD [address] [phone] Worship Pastor: Tim Vizcarra MD Repeat Specimen INFORMATION NOT PROVIDED [facility] Comment on above: Performed By: #### T SH, FT4, FT3 #### [address] [address] Worship Pastor: Thor Hernández MD #### AAFPM #### [address] [address] Worship Pastor: Thor Hernández MD [address] [phone] Worship Pastor: Tim Vizcarra MD Valproic/Carbamazep INFORMATION NOT PROVIDED [facility] Comment on above: Performed By: #### T SH, FT4, FT3 #### [address] [address] Worship Pastor: Thor Hernández MD #### AAFPM #### [address] [address] Worship Pastor: Thor Hernández MD [address] [address] Worship Pastor: Tim Vizcarra MD Thyroxine, Freeon 07-27-2023 Thyroxine, Free 1.0 ng/dL Normal 0.92-1.68 [facility] Comment on above: Performed By: #### T SH, FT4, FT3 #### [address] [address] Worship Pastor: Thor Hernández MD #### AAFPM #### [address] [address] Worship Pastor: Thor Hernández MD [address] [address] Worship Pastor: Tim Vizcarra MD Protein,Tot,Dingle Uron 2023 Creatinine [Mass/Vol] 273.0 mg/dL High 28.0-217.0 [facility] Comment on above: Performed By: #### U RTPRT #### [address] [address] Worship Pastor: Thor Hernández MD Tot Prot. Conc. 21 mg/dL Normal [facility] Comment on above: Result Comment: No n ormal range established. Performed By: #### U RTPRT #### [address] [address] Worship Pastor: Thor Hernández MD TP/Cre Ratio 0.08 Normal [facility] Comment on above: Performed By: #### U RTPRT #### [address] [address] Worship Pastor: Thor Hernández MD T3, Freeon 8 Free T3 [Mass/Vol] 3.40 pg/mL Normal 2.00-4.40 [facility] Comment on above: Performed By: #### T SH, FT4, FT3 #### [address] [address] Worship Pastor: Thor Hernández MD #### AAFPM #### [address] [address] Worship Pastor: Thor Hernández MD [employer] [address] [place] [address] Worship Pastor: Tim Vizcarra MD Thyroid Stim. Horm.on 2023 Thyroid Stim. Horm. <0.01 Low 0.27-4.20 [facility] Comment on above: Performed By: #### T SH, FT4, FT3 #### [facility] [address] [place], [place] [phone] Worship Pastor: Thor Hernández MD #### AAFPM #### [facility] [address] [place], [place] [phone] Worship Pastor: Thor Hernández MD [facility] [address] [place] [address] Worship Pastor: Tim Vizcarra MD ED Note-Physicianon 05-14-19 ED [...] see dentistry until she is cleared by [facility]. She does not have an appointment for [facility] to next week. She has no OB [...] day(s), # 15 tab(s), Refills(s) 0, Pharmacy: [facility], 160, cm, 05/13/23 11:33:00 EST, Height/Length [...] Oral, q6hr Follow-up With When Contact Information [facility] In 3 days 05/16/2023 EDT [address] [place] [address] Business (1) Additional Instructions: Dentistry follow-up Patient [...] made to ensure accuracy, however, inadvertently computerized domestic freight forwarder mistakes may be present. Appropriate healthcare PPE was used in evaluating this patient. Problem List/Past Medical History Ongoing Acute hepatitis C Anxiety Apnea, sleep Dental caries PCOS (polycystic ovarian syndrome) Historical No qualifying data Procedure/Surgical History Delivery. Medications Inpatient ampicillin-sulbacta m additive + Sodium Chloride 0.9% intravenous solution 100 (more content not included)... [facility] Comment on above: Result Comment: Elec tronically Signed By: Greg Stratton PA-C\.br\Date and Time Signed: 05/13/23 12:45 EST\.br\Electronically Co-Signed By: Jonathan Martinez DO\.br\Date and Time Co-Signed: 05/14/23 07:40 EST Consent for Treatmenton Consent for Treatment [id number] EC#1.00TIFF [facility] Discharge Instructionson Discharge Instructions [id number] 40 [id number] 53#1.00TIFF [facility] ED Clinical Summaryon 2023 ED Clinical Summary [place] [id number] ED Clinical Summary Person Information Name: TIA MONROE Maria Elena/[facility] Age: 33 Years : 1990 Sex: Female Language: Surinamese PCP: Linda Sheppard DO Marital Status: Visit [...] 13:02:19 05/13/2023 13:02:19 05/13/2023 13:02:19 ADDRESS: [address] [facility] [id number] PHYS DOC NOTES: MEDICAL INFORMATION: Prescriptions Given: New Medications [facility], [address] [place], [place] [id number], [phone] oxycodone (oxyCODONE 5 mg Tab) 1 Tablets [...] Dental Abscess Follow up: With: Address: When: [address] [address] Business (1) In 3 days 05/16/2023 Comments: Dentistry follow-up DIAGNOSIS: Dental abscess [facility] ED Patient Education Noteon 05-13-2023 ED [...] these instructions at home: Medicines ? Take mrpo-hvn-hkrmznv and prescription medicines only as told by [...] mouth. ? (more content not included)... [facility] ED Patient Summaryon 024 ED Patient Summary [address] [address] Patient Discharge Instructions Person Information Name: TIA MONROE Age: 33 Years Arrival Date: 05/13/2023 11:19:01 Discharge Diagnosis: Dental abscess Primary Care Physician: Linda Sheppard DO Provider Information Primary Provider: Jonathan Martinez DO Advanced Instrument Repair Technician:Greg Stratton PA-C The exam and treatment you received in the Emergency Department were for an urgent problem and are not intended as complete care. It is important that you follow up with a doctor, nurse practitioner, or physician?s visitor information assistant for ongoing care. If your symptoms become worse or you do not improve as expected and you are unable to reach your usual health care provider, you should return to the Emergency Department. We are available 24 hours a day. TIA MONROE has been given the following list of patient education materials, prescriptions and follow-up instructions: Follow-up Instructions: With: Address: When: [facility] [address] [address] Business (1) In 3 days 05/16/2023 Comments: Dentistry follow-up In the event that this physician does not participate in your insurance network, please consult with your insurance company to find a nearby participating provider. Patient Education Materials: Dental Abscess A MESSAGE TO ALL PATIENTS REGARDING OPIOIDS PRESCRIPTION OPIOIDS: WHAT YOU NEED TO KNOW Prescription opioids can be used to help relieve ezidfdwo-du-dnppiv pain and are often prescribed following a [...] be struggling with addiction, tell your health palliative care nurse practitioner and ask for guidance or call [facility] National Helpline at 1-583-0 (more content not included)... [facility] Discharge Instructionson Discharge Instructions [id number] 40 [id number]#1.00TIFF [facility] ED Clinical Summaryon 2023 ED Clinical Summary [place] [id number] ED Clinical Summary Person Information Name: TIA MONROE Maria Elena/[facility] Age: 33 Years : 1990 Sex: Female Language: Surinamese PCP: Linda Sheppard DO Marital Status: Visit [...] 05/11/2023 23:59:00 05/11/2023 23:59:00 ADDRESS: [address] [facility] [id number] PHYS DOC NOTES: MEDICAL INFORMATION: Prescriptions Given: New Medications [facility], [address], [place] [id number], [phone] amoxicillin-clavula cindi (Augmentin 875 mg oral tablet) [...] Medication PATIENT EDUCATION INFORMATION: Instructions: Dental Pain, Uhip-jw-Dvpi Follow up: With: Address: When: Linda Sheppard DO, [address] [place] [address] In 3 days 05/14/2023 DIAGNOSIS: 1:Pain, dental; 2:Infected dental caries; 3:First trimester ; Periapical abscess without sinus [facility] ED Note-Physicianon 05-12-19 ED Note-Physician Basic Information Time Seen: Violet Walters PA-C 05/11/2023 22:59 Chief Complaint pt arrives for c/o dental pain on the right upper side. states cannot see her denitist d/t being . pt states seen in [place] and started on amoxcillin. History of Present Illness Patient is a 7-week 33-year-old female with history of PCOS that presents to the ED with her for evaluation of dental pain. Patient says pain started on Tuesday. She localizes it to the right upper jaw, radiates into her face ear and cheek. She went to [place] yesterday and was initiated on amoxicillin [...] day(s), # 14 tab(s), Refills(s) 0, Pharmacy: [facility], 160, cm, 05/11/23 21:53:00 EST, Height/Length Dosing, 110, kg, 05/11/23 21:53:00 EST, Weight Dosing chlorhexidine topical, 0.018 gm, 15 mL, Oral, BID, 480 mL, Refill(s) 0, (swish and spit; do not swallow), [facility], 160, cm, 05/11/23 21:53:00 EST, Height/Length Dosing, 110, kg, 05/11/23 21:53:00 EST, Weight Dosing (more content not included)... [facility] Comment on above: Result Comment: Elec [...] these instructions at home: Medicines ? Take lmct-xsl-abzxwse and prescription medicines only as told by [...] to the area. Brushing your teeth ? [place] your teeth twice a day using a [...] when you eat or drink. ? Take isti-tzl-lkpxfxf and prescription medicines only as told by [...] Reviewed: 11/26/2020 Elsevier Patient Education ? 2022 [employer] [facility] ED Patient Summaryon 024 ED Patient Summary [address] [address] Patient Discharge Instructions Person Information Name: TIA MONROE Age: 33 Years Arrival Date: 05/11/2023 21:25:54 Discharge Diagnosis: 1:Pain, dental; 2:Infected dental caries; 3:First trimester ; Periapical abscess without sinus Primary Care Physician: Linda Sheppard DO Provider Information Primary Provider: Zac Fields M.D. Advanced Instrument Repair Technician:Violet Walters PA-C The exam and treatment you received in the Emergency Department were for an urgent problem and are not intended as complete care. It is important that you follow up with a doctor, nurse practitioner, or physician?s visitor information assistant for ongoing care. If your symptoms [...] Instructions: With: Address: When: Linda Sheppard DO [address] [place] [address], Amelie C, [facility] [address] [place], [place] [phone] In 3 days 05/14/2023 In the event that this physician does not participate in your insurance network, please consult with your insurance company to find a nearby participating provider. Patient Education Materials: Dental Pain, Yvyg-ed-Oqhl A MESSAGE TO ALL PATIENTS REGARDING OPIOIDS PRESCRIPTION OPIOIDS: WHAT YOU NEED TO KNOW Prescription opioids can be used to help relieve xfefnlme-ql-noftod pain and are often prescribed following a [...] be struggling with addiction, tell your health palliative care nurse practitioner an (more content not included)... [facility] Consent for Treatmenton Consent for Treatment [id number] 96#1.00TIFF [facility] Progesteroneon 12-28-2022 Progesterone 12.60 ng/mL Normal [facility] Comment on above: Result Comment: Female: Follicular phase <0.19 ng/mL Ovulation phase 0.06-4.14 ng/mL Luteal phase 4.11-14.5 ng/mL Postmenopausal <0.13 ng/mL Performed By: #### P NICKY #### [facility] [address] [place] [address] Worship Pastor: Thor Hernández MD Progesteroneon 11-24-2022 Progesterone 7.18 ng/mL High 0.0-0.15 [facility] Comment on above: Result Comment: Female: Follicular phase <0.19 ng/mL Ovulation phase 0.06-4.14 ng/mL Luteal phase 4.11-14.5 ng/mL Postmenopausal <0.13 ng/mL Performed By: #### P NICKY #### [facility] [address] [place] [address] Worship Pastor: Thor Hernández MD , Urineon HCG ( test) Ql (U) Negative NEGATIVE [facility] XR ANKLE RIGHT (MIN 3 VIEWS) on 09-04-2022 FINDINGS/IMPRESSION : No acute displaced fracture identified. Ankle mortise is symmetric. There is a 1 mm tiny calcified body which is remote appearing near the distal fibular tip. Minimal ankle soft tissue edema. [facility] EXAM: XR ANKLE RIGHT (MIN 3 VIEWS) INDICATION: Reason for exam:->swelling COMPARISON: None. TECHNIQUE: Radiographs as described above [facility] Bettye Johnson MD - 09/04/2022 EXAM: XR ANKLE RIGHT (MIN 3 VIEWS) INDICATION: Reason for exam:->swelling COMPARISON: None. TECHNIQUE: Radiographs as described above IMPRESSION: FINDINGS/IMPRESSION : No acute displaced fracture identified. Ankle mortise is symmetric. There is a 1 mm tiny calcified body which is remote appearing near the distal fibular tip. Minimal ankle soft tissue edema. [facility] Radiology Study observation (narrative) [facility] XR ANKLE RIGHT (MIN 3 VIEWS) Ordered By: Bettye Johnson on 09-04-2022 [facility] Work Phone: Coding Summary.on 07-09-2022 Coding Summary. CD:[id number] bWw+PGhlYWQ+GC8JVKP kX80hjYPvjX9hC5FUQJ lOSywgQVBQTElOSyIgb uRlLS1sqIKiIDJv IC8+ZS4yNTDpIwbjhZL fc4H6aTL7E17snd9bIP rmeEN9KGHtYvIbjaigr 0nhcIq6QGojXcvnXiRh JLUrhT80SNA4kP59Ti6 1tMQhgFHez0hkqQs5Gt IfVHKrBIE5jDqjCUwcn 6NbCEMqR56usAHwt5K4 IGNvbGxhcHNlOyBlbXB 0fF9yLPsgiskiw3rgzf frOmk7ep64bXVeq0E8n ZB6Z8TpdlD1NQCgtVIp EhwzbFEXpS3ulbxol9v wjyovPrUyCIGeUQa5OL k5RPCwpAubQtWjON76Z KR0SQCnvxUnL2PvLCQp yMgnDzC3m7D9Bh3CN0T KNdacY7FAFJHVMAmntT Q+AI61xe16Y1FkZqtfG up0LLXuSNS6iCG6tL8b HCGqOEbwm1I2lEJ7S5A qcnBasy0ue7tlPOLxYT cdM83dyEZjd6J0QPPax XD1SNIwxHixIzPmjR07 Oyc+JSBheOeji4LdRry ki0shj6ntzMe6BogfQA RhzbGzrYkzUPG3p4SfV r4jWLZfeHS4tKY8mO7s WfAyTfQ8XVqvE191DiP xaSMpRtnhC50bS0GboF A+MIJdWkd4HDLjjAqgJ C0bW6LoFGJdmixivXVc iKsgPO7iYOIlezymJLU ymY4pRXNbM8b6ViVnMj C8ACenR0BaCPVoqwvnL r20kT6tKdVxCkC2YQrk R3YzlwA0HTBqbRYqARp pREG5Q12fn3L6SZVvGC EzJEU1tDQ4wF2diAjqv jogbGVmdDsgdmVydGlj SEhwRCuqG683ZAYooSx nPkNvZGluZyBEYXRlOi AgMDUvMDUvMjAyMzwvd GQ+ORXwNFY1mHnoBPVn lBHjDCjkMl8ixDxczJl gGZ7eMPAtoizaBZXqlG 7dPXIxxGEdxQrsJC2bN BWnbtano509NkWqJDD3 GUOxmKWsN7YlhL0qOmE fDIRhZGQpB0LbxBYxMX ryH726HXpfMvC7KWTnm nEdS5UgUBEzcCsuVfH4 j0X3Hs1Jm0ZteimyB8L kdUCoSrKaZaygUZt7F2 RkPjwvdHI+LI27YPQgO F51SQm6HJJ7rKrsURfn WUWzB8WgkE8aItUdSAX kZGRkOyc+PHRhYmxlIH dpZHRoPScxMDAlJyBzd WjiTZ0mUw5bPRFjIVZx dLahsEDuUjDuc1vmYHZ tBNlgFU0nnDsqM3UxfC A8GMQzv3y2Wd48P44mE 3JvdXA+RGYtqUN2xTR4 qN2xSfHdBcD6HUyrX25 3IcDbsLBnBjhkq3nre5 wguDr5OqI0THVkckFkr OuiOTV2z6XmFb87I61q IHdpZHRoPSIxNSUiIHZ osKiqqr9fgG4tLp2+PG KqrHK3pYJ2eZ6sTnFsA kT1UQanU004RlAagMRx Gpger4ubd1qfsTj6JbR jWZIyxkEmjQrrRFM9q8 DfPl86Q6QrcInfd3PwO jk6pl26uPAyk4K4oIL6 I2JaGOZoudnpfXSxePr jXZ1dLGYnsjqeGFQcaW 4pIVPiZ1n1RpJzEoR8T ErwB0RtsfV3FTWqmKAw RVZtuCPSuS4cqptku4n jrjhxSvGsJVFcIWn2KC p3YIKxkLdyRcGyVFL7Y mP2FCM1fWCbgI3afJlg tvxkqS2gYvi+VWN5wTK yvXWVLT5dSuztxTG+PH XqHHG6gFztJHlqOGDol K1vXOHzM5c4JmNcLiK2 QLqtT4BwfkZ3LTGesOC lCAGwoVRNoM1lqnhuq9 tfwxntNtYbFYTiUGz0C Tk6UTCroXigDyFfLLF3 OrL9YJY6vOYpdO5tiJh orbywaM2jPxw+QmlydG fhHYC5DAm4C1HkXqy0Y ZZlpUiiZL1vnPHdGTsb Hb7lpPxvhVznWN1pRZG etpcwx586IxEfj4ibSX AtoOFaJJlcCYO0Y45ae 5T8GCAvWSTaXLK4rMN7 hJ6aeWnvtctxkDDmjXx gdmVydGljYWwtYWxpZ2 67QXCjcFjwGyFkRDg8V 5YvQfb8CPDfjJzjVM6m mOSnUOlfKz4xoVapnHe jTM8bLTAxsthoh025Dm Gtj0sjCUFyrTXmEBxxL ID2X44bx2W7OLVqXVPn PYT6nWN7zH5ckDntesf gbGVmdDsgdmVydGljYW ehBWyjZ180HTUshCzkM uCjwGs4N7XoVxb9NJQj dNjaAI9voCEuBLwtEc4 anXgrvEmcFS4oLRQwrs xal163NpJhg2fnVOWry RNoLVouFAD5E76yr7Q2 JQWuWRXfJSI0hKY3yJ3 hbGlnbjogbGVmdDsgdm ZzzRxnPPckEZmmT702F HRvcDsnPlBhdGllbnQg ULuoBMg0Z8SaAoqmvGT +GC04GTFnFT97kBBxeG Dcy5mvaHf0GjEgVLQdN TD3nFvbIAwzk2UeQVVn U41aiJFnj8F1ZKNlbGb ehXKiZgYfuJS4jB3kJA vhenorb5stbprrGfrhh 1unyn97sH29B26eCVer ZHRoPSIzMCUiIHZhbGl waj4uyC5oKp6+PGNvbC H7zIW8rT6jKSEpOyT3B OfpM904QsNguEQcAqtl q3rml3cxbYd0AlY4IWT akqCqvNctBLG2w0AvLj 32F66bTNfxVKXuJKLcE UMhGTApvWkdzq9snJ8y Ii8+QRSpxNQ9lMP3xK1 nMoVtYxY5LUlxB190It LyjCHsJesnE13jE3Zzk XA+RUTzGly9VXTodKxs ZJ3dqXTaEHvzKm7uRBE 5XgEvRkPoTUdvG9RhJO GlhqsqrhxshLS8USFdP SUtyY40Im2hhCsqRHIh qXAAyC3ahfdia9nktpk dJpFmSGAsALa2DKb5QB QtyTtiXfEgQMS1CoA2U WR4oTEtyD8zcUldqwwp pS5xD9KfRZMbrptdEc5 2oJ3iEgZfWtT9WOfdYz c+Yi8LUoFIMgkaVrSNW kRJRTwvdGQ+PHRkIHN0 rMrmEOykEYRtlO0uEJN yC9d0AmJsTfT2QQmoX6 OkXVRsyuxtZg67pW1qT pTvJhN6EKydX1PtlbF2 RGHxzWHoRTfgILD2S86 dw1Z8QMKvHKRfJNR7tF R8vE7ycYrpfzudxTIzl DsgdmVydGljYWwtYWxp U471JSRecUswXzHuMlN 2UlM2HBZ4I3LbScl8ZU XbsUpqQT6naMRoZKgrW z7ldSyrlEgzUX9uYIEp xuloKAPzzO5bNVHanKG tfKdjIU6sOWSkpzpyu4 34GdNzUIW6EULzbFAlQ 5TdwK3bKoKgJULfVYLd P9IexVSzMSvdU734RVx pBhO6AYWxoyVrQ3DsNS NvfIzuJwB7l6S9Ey6gZ iBZZWFyczwvdGQ+PHRk IHE5eZuxMEaqNAKihP6 oEDEgF9p7EhGnIlD6LR ldN0YvQDQyxemqSe56b P8aRkIeQoY2RRhyG8As xmK1LREskPYySCdqSFZ 2W61vp7F6ROFfMRIrXR G1mNT7fU9qjNjqbexsu GVmdDsgdmVydGljYWwt EGqgB334BESimLiqPcU lbWFsZTwvdGQ+PHRkIH F2dQrrOItdCJRapC2yS AKkF7s1WsQjOlI0FFff H0MjONFfkbajUi58zE6 sGiNaJhU4QVhbQ3Kywd T4NJBocBRhYMgcBRV5L 93ol7L0KYWgCZKvWQB6 iLJ7zZ4drKukyidjnGO mdDsgdmVydGljYWwtYW emA556LRFhxHiwSkNxc E2lVGKnPSkhjSQmcFtd dGQ+LE76iw56S2XrIig eOok0HIInQCD1hBD4xH 4lWLZePXmar9V5hIU2B 2AtkrJypd0rj2cnNKLr WRwrB99rpGVvr7E0IHK rbVM1PLNmdJonXjLonE 93Oyc+BGLkbHfkj4MeO psre8xhd0edwOn6EbNg NAKlpmUjmTipKOK0k4Z lOe18Q93eBAwwYUCrUE ZiYUQsWNEgbZfiab0xl G9wIi8+VLCjiDY6sBJ2 aF1zPwAgRqR3ROghJ94 0GvDqbMGvIaywj1hnh1 yoyWc9FrLjDPQthaBku OykJZC4v1QrFc98U0Vr gAjyc0PvPjw7oa68uMH nq3G6hHF8C3KnJNSivr ajmCWkcOggXR6lTTNvc dbjSYWduQ4rDHAgP8z3 FlSeXvK5XZtpF9GczfP 6IGJvbGQgMTBwdCBUaW 2uzdrju9raabnjFnYcQ WFhNIr9MAw2AUMgkEzd VfXqXEJ5SrG4RGH6aFI jyD4fyVbcunaujK6tWf c+ILo4s2efqLFkCY5vl UA5LH27NL26lQAgf4L5 iQK7A3HwJGXkxqofias bzMY7NDZsOLFohU18Wf 6gdRabCf0mVEMhYQP8S GDviWZzR6FsuB0cIpJp ORDlWGRkZ3KflSVtRKv eF613EQdiDyW6IGHqmi GtH0YvLFGsrWpfJuE0f 4Y2Fh2KDR58GO65RW28 gHFvf1Y0pFL1A2ZaLNK fjffealvfeDW9RFOqMN BahC65Lo2foXnqNl0lR TEwIQX3ZGQzkMIoK6Wj dS3gSbAmFMBdZMQaL1O kvGVwQBqlP570KPnnOe Z8XMFwskWtX3QpEGXaq FwzZsD3s4T4Ai7GWv55 PH54SY55uBRtg0E2hPP 5Y5EmQKQfefeajtmqrX G3XXIuEDXqkY76Fr7fd RevRz4rMNNfPEI5OXMh fLGoC9MzwB2yJxMdLCW nLJOcI8SzvGXoFLwgM6 33KVfpBhL3PXMrunIaC 3QwJAVlvUztQvI2r0Y2 Et9IIRgcftx3Y2AqZca vdHI+UH87ITXgKG49tQ GiuECss6ebqOs5LcJlA VXqZEE9pCvjZYhty8Td EYVdW21x (more content not included)... [facility] Consultation Noteon 07-07-19 Consultation Note Patient: [...] Problems Acute hepatitis C / SNOMED CT 945187274 / Confirmed Anxiety / SNOMED CT 02555451 / Confirmed Apnea, sleep / SNOMED CT 233324379 / Confirmed Dental caries / SNOMED CT 063615880 / Confirmed PCOS (polycystic ovarian syndrome) / SNOMED CT 094860948 / Confirmed Histories Past Medical History: Active Dental caries ([id number]) Family History: No family history items have [...] Patient agrees with plan of care. [facility] Comment on above: Result Comment: Elec tronically Signed By: Bing PEDRAZA, Todd Lilly\.br\Date and Time Signed: 07/06/22 13:28 EDT DHEA SERUMon 07-04-2022 Dehydroepiandrosterone (DHEA) 220 ng/dL Normal 31-701 [facility] Comment on above: Performed By: #### D KAN. ####[facility] [id number] [place], [place] [id number] Layneshivam Daniel DHEA-SULFATEon 06-30-2022 DHEA-Sulfate 106.0 ug/dL Normal 84.8-378.0 [facility] Comment on above: Performed By: #### D DEEPTI ####[facility] [id number] [id number]. Nito Sanchez FSHon 06-30-2022 FSH 6.6 mIU/mL Normal [facility] Comment on above: Result Comment: Adul t Female: Follicular phase 3.5 - 12.5 Ovulation phase 4.7 - 21.5 Luteal phase 1.7 - 7.7 Postmenopausal 25.8 - 134.8 Performed By: #### [facility] #### [facility] [address] [address] [address] Nito Sanchez LUTEINIZING HORMONE (LH)on 0 06-30-2022 LH 18.9 mIU/mL Normal [facility] Comment on above: Result Comment: Adul t Female: Follicular phase 2.4 - 12.6 Ovulation phase 14.0 - 95.6 Luteal phase 1.0 - 11.4 Postmenopausal 7.7 - 58.5 Performed By: #### L BCLH #### [facility] [address] [place] [address] Dr. Nito Sanchez PROLACTINon 06-30-2022 Prolactin 5.3 ng/mL Normal 4.8-23.3 [facility] Comment on above: Performed By: #### P ROLAC #### [facility] [address] [address] [address] Nito Sanchez CBC AUTO DIFFon 06-29-2022 BASO # 0.1 103/ul Normal 0.0-0.1 [facility] Comment on above: Performed By: #### C BC #### [facility] [address] [address] [address] Nito Sanchez Basophils/100 WBC (Bld) 0.5 % Normal 0.2-2.0 [facility] Comment on above: Performed By: #### C BC #### [facility] [address] [address] [address] Nito Sanchez EO # 0.2 103/ul Normal 0.0-0.7 [facility] Comment on above: Performed By: #### C BC #### [facility] [address] [place] [address] Dr. Nito Sanchez Eosinophils/100 WBC (Bld) 1.6 % Normal 0.9-7.0 [facility] Comment on above: Performed By: #### C BC #### [facility] [address] [place] [address] Dr. Nito Sanchez Erythrocyte distribution width (RBC) [Ratio] 13.6 % Normal 11.0-15.0 [facility] Comment on above: Performed By: #### C BC #### [facility] [address] [place] [address] Dr. Nito Sanchez Hematocrit (Bld) [Volume fraction] 39.7 % Normal 36.0-48.0 [facility] Comment on above: Performed By: #### C BC #### [facility] [address] [place] [address] Dr. Nito Sanchez Hemoglobin (Bld) [Mass/Vol] 13.1 g/dL Normal 12.0-16.0 [facility] Comment on above: Performed By: #### C BC #### [facility] [address] [place] [address] Dr. Nito Sanchez IG # 0.05 10e3/ul Critically high 0.00-0.03 [facility] Comment on above: Performed By: #### C BC #### [facility] [address] [place] [address] Dr. Nito Sanchez IG % 0.5 % Normal 0.0-0.5 [facility] Comment on above: Performed By: #### C BC #### [facility] [address] [place] [address] Dr. Nito Sanchez LYMPH # 2.6 103/ul Normal 1.2-3.8 [facility] Comment on above: Performed By: #### C BC #### [facility] [address] [place] [address] Dr. Nito Sanchez Lymphocytes/100 WBC (Bld) 25.3 % Normal 20.5-60.0 [facility] Comment on above: Performed By: #### C BC #### [facility] [address] [place] [address] Dr. Nito Sanchez MANUAL DIFF REQ NO Normal [facility] Comment on above: Performed By: #### C BC #### [facility] [address] [place] [address] Dr. Nito Sanchez MCH (RBC) [Entitic mass] 27.1 pg Normal 26.7-34.0 [facility] Comment on above: Performed By: #### C BC #### [facility] [address] [place] [address] Dr. Nito Sanchez MCHC (RBC) [Mass/Vol] 33.0 g/dL Normal 29.9-35.2 [facility] Comment on above: Performed By: #### C BC #### [facility] [address] [place] [address] Dr. Nito Sanchez MCV (RBC) [Entitic vol] 82.2 fL Normal 81.0-99.0 [facility] Comment on above: Performed By: #### C BC #### [facility] [address] [place] [address] Dr. Nito Sanchez MONO # 0.5 103/ul Normal 0.3-0.8 [facility] Comment on above: Performed By: #### C BC #### [facility] [address] [place] [address] Dr. Nito Sanchez Monocytes/100 WBC (Bld) 5.0 % Normal 1.7-12.0 [facility] Comment on above: Performed By: #### C BC #### [facility] [address] [place] [address] Dr. Nito Sanchez NEUT # 6.9 103/ul Critically high 1.4-6.5 [facility] Comment on above: Performed By: #### C BC #### [facility] [address] [place] [address] Dr. Nito Sanchez Neutrophils/100 WBC (Bld) 67.1 % Normal 43.0-75.0 [facility] Comment on above: Performed By: #### C BC #### [facility] [address] [place] [address] Dr. Nito Sanchez Platelet mean volume (Bld) [Entitic vol] 10.0 fL Normal 9.5-13.5 [facility] Comment on above: Performed By: #### C BC #### [facility] [address] [place] [address] Dr. Nito Sacnhez PLT 313 103/ul Normal 150-450 [facility] Comment on above: Performed By: #### C BC #### [facility] [address] [place] [address] Dr. Nito Sanchez RBC 4.83 106/ul Normal 4.20-5.40 [facility] Comment on above: Performed By: #### C BC #### [facility] [address] [place] [address] Dr. Nito Sanchez WBC 10.3 103/ul Normal 4.0-11.0 [facility] Comment on above: Performed By: #### C BC #### [facility] [address] [place] [address] Dr. Nito Sanchez Consent for Treatmenton 06-06 Consent for Treatment [id number] 650#1.00CD:127 Normal [facility] FREE T4on 06-29-2022 Free T4 [Mass/Vol] 1.01 ng/dL Normal 0.76-1.46 [facility] Comment on above: Performed By: #### F T4 #### [facility] [address] [place] [address] Dr. Nito Sanchez GLYCOHEMOGLOBIN A1Con 2022 ADA RECOMMENDATION SEE BELOW Normal [facility] Comment on above: Result Comment: ADA RECOMMENDED LIMIT 4.0 - 6.0 ADA THERAPEUTIC TARGET < 7.0 ACTION SUGGESTED > 7.0 Performed By: #### A 1C #### [facility] [address] [place] [address] Dr. Nito Sanchez Glucose [Mass/Vol] 108 mg/dL Normal [facility] Comment on above: Performed By: #### A 1C #### [facility] [address] [place] [address] Dr. Nito Sanchez HbA1c (Bld) [Mass fraction] 5.4 % Normal 4.5-6.2 [facility] Comment on above: Performed By: #### A 1C #### [facility] [address] [place] [address] Dr. Nito Sanchez HIPAA Forms Officeon 023 HIPAA Forms Office [id number] 602#1.00CD:127 Normal [facility] Legal Correspondence Officeo n 06-29-2022 Legal Correspondence Office [id number] 270#1.00CD:127 Normal [facility] Legal Correspondence Office [id number] 787#1.00CD:127 Normal [facility] Office/Clinic Note-Physician on 06-29-2022 Office/Clinic Note-Physician [id number] 515#1.00CD:127 Normal [facility] Orders Officeon 06-29-2022 Orders Office [id number] 642#1.00CD:127 Normal [facility] PREG QUANT HCGon 06-29-2022 HCG QUANT 1 mIU/mL Normal [facility] Comment on above: Performed By: #### T BERNICE, PREGQNT #### [facility] [address] [place] [address] Dr. Nito Sanchez HCG RANGE SEE BELOW Normal [facility] Comment on above: Result Comment: 5-50 0.2-1 WEEK 50-500 1-2 WEEKS 100-5,000 2-3 WEEKS 500-10,000 3-4 WEEKS 1,000-50,000 4-5 WEEKS 10,000-100,000 5-6 WEEKS 15,000-200,000 6-8 WEEKS 10,000-100,000 2-3 MONTHS Performed By: #### T SH, PREGQNT #### [facility] [id number] Nito Sanchez Patient Correspondenceon Patient Correspondence [id number] 946#1.00CD:127 Normal [facility] Patient Correspondence [id number] 137#1.00CD:127 Normal [facility] Patient Correspondence [id number] 273#1.00CD:127 Normal [facility] Patient Correspondence [id number]#1.00CD:127 Normal [facility] Patient Correspondence [id number]#1.00CD:127 Normal [facility] Patient History Officeon Patient History Office [id number]#1.00CD:127 Normal [facility] Patient History Office [id number] 721#1.00CD:127 Normal [facility] Radiology Outside Office Physical Education Instructor yon 06-29-2022 Radiology Outside Office Copy [id number] 142#1.00CD:127 Normal [facility] TSHon 06-29-2022 TSH 0.848 uIU/mL Normal 0.358-3.740 [facility] Comment on above: Performed By: #### T SH, PREGQNT #### [facility] [address] [address] [address] Nito Sanchez US PELVIS AND TRANSVAGon [...] by: BETTYE DANIELS Date: 2022-06-29 15:17 Normal [facility] PAP ACOG PANEL 2: 30 to 65on 06-19-2022 . . Normal [facility] Comment on above: Result Comment: Perf ormed at: WB Performed By: #### 4 [id number] #### [facility] [address] [address] [address] Nito Sanchez Age Gdln ACOG Testing 30-65 Normal [facility] Comment on above: Performed By: #### 4 [id number] #### [facility] [address] [address] [address] Nito Sanchez DIAGNOSIS: Comment Normal [facility] Comment on above: Result Comment: NEGA TIVE FOR INTRAEPITHELIAL LESION OR MALIGNANCY. Performed at: WB Performed By: #### 4 [id number] #### [facility] [address] [address] [address] Nito Sanchez HPV Aptima Negative Normal Negative [facility] Comment on above: Result Comment: This nucleic acid amplification test detects fourteen high-risk HPV types (16,18,31,33,35,39,45,51,52,56,58,59,66,68) without differentiation. Performed at: =G Performed By: #### 4 [id number] #### [facility] [address] [address] [address] Nito Sanchez HPV Genotype Reflex Comment Normal [facility] Comment on above: Result Comment: Crit eria not met, HPV Genotype not performed. Performed at: WB Performed By: #### 4 [id number] #### [facility] [address] [place] [address] Dr. Nito Sanchez Methodology: Comment Normal [facility] Comment on above: Result Comment: This liquid based ThinPrep(R) pap test was screened with the use of an image guided system. Performed at: WB Performed By: #### 4 [id number] #### [facility] [address] [place] [address] Dr. Nito Sanchez Note: Comment Normal [facility] Comment on above: Result Comment: The Pap smear is a screening test designed to aid in the detection of premalignant and malignant conditions of the uterine cervix. It is not a diagnostic procedure and should not be used as the sole means of detecting cervical cancer. Both false-positive and false-negative reports do occur. . Performed at: WB Performed By: #### 4 [id number] #### [facility] [address] [place] [address] Dr. Nito Sanchez Performed by: Comment Normal [facility] Comment on above: Result Comment: Nanda Treadwell, Roofer Apprentice (ASCP) Performed at: WB Performed By: #### 4 [id number] #### [facility] [address] [place] [address] Dr. Nito Sanchez Specimen adequacy: Comment Normal [facility] Comment on above: Result Comment: Sati sfactory for evaluation. Endocervical and/or squamous metaplastic cells (endocervical component) are present. Performed at: WB Performed By: #### 4 [id number] #### [facility] [address] [place] [address] MAXILLOFACIAL WO CONTRAST on 05-11-2022 Recent extraction of the right mandibular and maxillary second molar teeth with presence of air in the respective tooth sockets. No evidence of edema in the sublingual space or the buccal space Probable periapical abscess involving the right maxillary premolar tooth adjacent to the first molar tooth. [facility] RIS CONSOLIDATED EXAM: CT [...] visualized intracranial contents show no acute process. [facility] Phil Romero MD - [...] tooth adjacent to the first molar tooth. [employer] Work Phone: Radiology Study observation (narrative) [employer] Work Phone: CT MAXILLOFACIAL WO CONTRAST Ordered By: Phil Mary on 05-11-2022 [employer] Work Phone: Urine Preg (Lab)on 3 Beta HCG ( test) Ql (U) Negative NEGATIVE PharmAbcine HCG, Quantitative, on 03-29-2022 hCG Quant NINF [employer] Comment on above: Non-preg premeno <=5 Postmeno <=8 Male <=3 If HCG results do not concur with clinical observations, additional testing to confirm results is recommended. ALEXANDRA PANIAGUA [facility] COVID-19, Rapidon 07-22-2021 SARS-CoV-2 (COVID-19) RNA KALPESH+probe Ql (Unsp spec) Not detected Not Detected [facility] Comment on above: Rapid NAAT: The [...] management decisions. Fact sheet for Healthcare Providers: https://www.fda.gov/media/332646/download Fact sheet for Patients: https://www.fda.gov/media/702655/download Methodology: Isothermal Nucleic Acid Amplification Specimen Description .NASOPHARYNGEAL SWAB [facility] Strep Screen Group A Throato n 07-22-2021 S. pyogenes Ag Ql (Throat) Negative NEGATIVE [facility] Comment on above: Rapid Strep A negati ve. A negative Rapid Group A Strep Screen result does not rule out the possibility of Group A Streptococci in the specimen. A Group A Strep DNA test is available upon request. Source .THROAT SWAB [facility] MR LUMBAR SPINE WITHOUT CONT [facility] [...] No fracture or spondylolisthesis. [facility] Workstation ID: [id number] Dictated by: JONATHAN LINARES on TueJun 18, 2021 11:51:00 AM EDT Transcribed by: ZULMA CARDENAS on TueJun 18, 2021 11:58:13 AM EDT Finalized by: JONATHAN LINARES on TueJun 18, 2021 12:35:45 PM EDT Normal [facility] Comment on above: Order Comment: Injur y/Trauma or Illness?:Illness/Other How long have you had these symptoms (acute/chronic)?:Chronic Reason for exam?:LBP AND bilat hip pain x years, nki Type of Exam?:Subsequent/Follow-up Additional signs and symptoms?:. CBC panel Auto (Bld)on 04-16 Erythrocyte distribution width (RBC) [Entitic vol] 14.0 % 11.6 - 14.8 % [facility] Hematocrit (Bld) [Volume fraction] 38.6 % 36.0 - 46.0 % [facility] Hemoglobin (Bld) [Mass/Vol] 12.1 g/dL 12.0 - 16.0 g/dL [facility] Interpretation and review of laboratory results Abnormal [facility] MCH (RBC) [Entitic mass] 25.4 pg Low 26. 0 - 34.0 pg [facility] MCHC (RBC) [Mass/Vol] 31.3 g/dL 31.0 - 37.0 g/dL [facility] MCV (RBC) [Entitic vol] 81.1 fL 80.0 - 100.0 fL [facility] Platelet mean volume (Bld) [Entitic vol] 10.0 fL 9.4 - 12.4 fL [facility] Platelets (Bld) [#/Vol] 379 10*3/uL [facility] RBC (Bld) [#/Vol] 4.76 10*6/uL [facility] WBC (Bld) [#/Vol] 9.85 10*3/uL [facility] Comprehensive metabolic 2000 panelon 04-16-2021 Albumin [Mass/Vol] 3.7 g/dL 3.2 - 5.2 g/dL [facility] ALP [Catalytic activity/Vol] 95 U/L 40 - 140 U/L [facility] ALT [Catalytic activity/Vol] 36 U/L 14 - 65 U/L [facility] Anion gap [Moles/Vol] 11 mmol/L 10 - 2 0 mmol/L [facility] AST [Catalytic activity/Vol] 22 U/L 0 - 45 U/L [facility] Bilirubin [Mass/Vol] 0.3 mg/dL 0.0 - 1 .3 mg/dL [facility] Calcium [Mass/Vol] 9.3 mg/dL 8.4 - 10. 2 mg/dL [facility] Chloride [Moles/Vol] 105 mmol/L 98 - 10 8 mmol/L [facility] Creatinine [Mass/Vol] 0.68 mg/dL 0.40 - 1.10 [facility] GFR/1.73 sq M.predicted CKD-EPI (S/P/Bld) [Vol rate/Area] 117 >=60 mL/min/1.73 m2 [facility] Glucose [Mass/Vol] 76 mg/dL 65 - 99 mg/dL [facility] HCO3 [Moles/Vol] 26 mmol/L 21 - 32 mmol/L [facility] Interpretation and review of laboratory results Normal [facility] Potassium [Moles/Vol] 4.2 mmol/L 3.5 - 5.1 mmol/L [facility] Protein [Mass/Vol] 7.5 g/dL 6.0 - 8.0 g/dL [facility] Sodium [Moles/Vol] 138 mmol/L 135 - 145 mmol/L [facility] Urea nitrogen [Mass/Vol] 13 mg/dL 8 - 25 mg/dL [facility] Urea nitrogen/Creatinine [Mass ratio] 19.1 mg/mg [facility] The eGFR should be used for monitoring renal function only and not for medication dosing. [facility] Lipid 1996 panelon 2 Cholesterol [Mass/Vol] 195 mg/dL 100 - 199 mg/dL [facility] Comment on above: National Cholesterol Education Program Guidelines: Cholesterol Desirable: <200 mg/dL Borderline High: 200-239 mg/dL High: greater than or equal to 240 mg/dL Cholesterol in HDL [Mass/Vol] 56 mg/dL 40 - 59 [facility] Comment on above: National Cholesterol Education Program Guidelines: HDL Cholesterol Low: <40 mg/dL Near Optimal: 40-59 mg/dL High: greater than or equal to 60 mg/dL Cholesterol in LDL [Mass/Vol] 109 mg/dL 10 - 130 mg/dL [facility] Comment on above: National Cholesterol Education Program Guidelines: LDL Cholesterol Optimal: <100 mg/dL Near Optimal/above Optimal: 100-129 mg/dL Borderline High: 130-159 mg/dL High: 160-189 mg/dL Very High: greater than or equal to 190 mg/dL Cholesterol non HDL [Mass/Vol] 139 mg/dL [facility] Comment on above: National Cholesterol Education Program Guidelines: NON HDL Cholesterol Desirable: <130 mg/dL Borderline High: 130-159 mg/dL High: 160-189 mg/dL Very High: > or = 190 mg/dL Cholesterol.total/Cholest elton in HDL [Mass ratio] 3.5 {ratio} ratio [facility] Comment on above: Female Cholesterol/H DL Ratio: Average risk: 4.4 1/2 average risk: 3.3 2 x average risk: 7.1 Interpretation and review of laboratory results Abnormal [facility] Triglyceride [Mass/Vol] 151 mg/dL High 30 - 150 mg/dL [facility] Comment on above: National Cholesterol Education Program Guidelines: Triglyceride Normal: <150 mg/dL Borderline High: 150-199 mg/dL High: 200-499 mg/dL Very High: greater than or equal to 500 mg/dL No Panel Informationon 04-16 [facility] TSH DL <= 0.005 mIU/L Qnon 0 04-16-2021 Interpretation and review of laboratory results Normal [facility] TSH Qn 1.04 m[IU]/L [facility] Basic Metabolic Panel w/ Ref ray to MGon 03-23-2021 Anion gap [Moles/Vol] 13 mmol/L 9 - 17 mmol/L [facility] Calcium [Mass/Vol] 8.8 mg/dL 8.6 - 10. 4 mg/dL [facility] Chloride [Moles/Vol] 104 mmol/L 98 - 10 7 mmol/L [facility] CO2 [Moles/Vol] 21 mmol/L 20 - 31 mmol/L [facility] Creatinine [Mass/Vol] 0.65 mg/dL 0.50 - 0.90 mg/dL [facility] GFR >60 >60 mL/min [facility] GFR Non- >60 >60 mL/min [facility] GFR/1.73 sq M.predicted MDRD (S/P/Bld) [Vol rate/Area] [facility] Comment on above: Average GFR for 30-3 9 years old: 107 mL/min/1.73sq m Chronic Kidney Disease: <60 mL/min/1.73sq m Kidney failure: <15 mL/min/1.73sq m eGFR calculated using average adult body mass. Additional eGFR calculator available at: http://www.ROCKI.IdeaSquares/multiple_crcl_2012.htm GFR/1.73 sq M.predicted MDRD (S/P/Bld) [Vol rate/Area] NOT REPORTED [facility] Glucose [Mass/Vol] 104 mg/dL High 70 - 99 mg/dL [facility] Interpretation and review of laboratory results Abnormal [facility] th Potassium [Moles/Vol] 3.7 mmol/L 3.7 - 5.3 mmol/L [facility] Sodium [Moles/Vol] 138 mmol/L 135 - 144 mmol/L [facility] Urea nitrogen (BldV) [Mass/Vol] 15 mg/dL 6 - 20 mg/dL [facility] Urea nitrogen/Creatinine (Bld) [Mass ratio] 23 High [facility] CBC Auto Differentialon 03-07 Absolute Eos # 0.10 [facility] th Absolute Immature Granulocyte NOT REPORTED [facility] Absolute Lymph # 0.60 Low [facility] alth Absolute [place] [facility] Basophils (Bld) [#/Vol] 0.00 10*3/uL [facility] Basophils/100 WBC (Bld) 0 % 0 - 2 % [facility] Differential Type YES [facility] ealth Eosinophils/100 WBC (Bld) 2 % 0 - 5 % [facility] Hematocrit (Bld) [Volume fraction] 34.6 % Low 36 - 46 % [facility] Hemoglobin.gastrointestin al spec 1 Ql (Stl) 11.7 g/dL Low 12.0 - 16.0 g/dL [facility] Immature Granulocytes NOT REPORTED 0 % [facility] Interpretation and review of laboratory results Abnormal [facility] Lymphocytes/100 WBC (Bld) 13 % Low 15 - 40 % [facility] MCH (RBC) [Entitic mass] 26.4 pg 26 - 34 pg [facility] MCHC (RBC) [Mass/Vol] 33.8 g/dL 31 - 3 7 g/dL [facility] MCV (RBC) [Entitic vol] 78.2 fL Low 80 - 100 fL [facility] Monocytes/100 WBC (Bld) 10 % High 4 - 8 % [facility] NRBC Automated NOT REPORTED per 100 WBC [facility] Platelet distribution width (Bld) [Ratio] 14.4 % 12.1 - 15.2 % [facility] Platelet Estimate NOT REPORTED [facility] Platelet mean volume (Bld) [Entitic vol] NOT REPORTED 6.0 - 12.0 fL [facility] Platelets (Bld) [#/Vol] 259 10*3/uL [facility] RBC (Bld) [#/Vol] 4.43 10*6/uL 4.0 - 5.2 m/uL [facility] RBC (Bld) [#/Vol] NOT REPORTED [facility] Segmented neutrophils/100 WBC (Bld) 75 % 47 - 75 % [facility] Segs Absolute 3.60 [facility] W[facility] (Bld) [#/Vol] 4.8 10*3/uL [facility] WBC (Bld) [#/Vol] NOT REPORTED [facility] COVID-19, Rapidon 03-23-2021 Interpretation and review of laboratory results Abnormal [facility] SARS-CoV-2 (COVID-19) RNA KALPESH+probe Ql (Unsp spec) Detected Abnormal Not Detected [facility] Comment on above: Rapid NAAT: The [...] this assay. Fact sheet for Healthcare Providers: https://www.fda.gov/media/654861/download Fact sheet for Patients: https://www.fda.gov/media/094428/download Methodology: Isothermal Nucleic Acid Amplification Results reported to the appropriate Health Department Specimen Description .NASOPHARYNGEAL SWAB [facility] No Panel Informationon 03-23 Direct Exam Negative [facility] Rapid influenza A/B antigens on 03-23-2021 Special Requests NOT REPORTED [facility] Specimen Description .NASOPHARYNGEAL SWAB [facility] COVID-19, RapidOrdered By: Shayy Springer on 12-27-2020 SARS-CoV-2 (COVID-19) RNA KALPESH+probe Ql (Unsp spec) Not detected Not Detected [facility] Work Phone: Comment on above: Rapid [...] management decisions. Fact sheet for Healthcare Providers: https://www.fda.gov/media/291082/download Fact sheet for Patients: https://www.fda.gov/media/017226/download Methodology: Isothermal Nucleic Acid Amplification Specimen Description .NASOPHARYNGEAL SWAB [employer] Phone: [employer] Phone: Strep Screen Group A ThroatO rdered By: Wayne Springer on 12-27-2020 S. pyogenes Ag IA Ql (Unsp spec) Rapid Strep A negative. A negative Rapid Group A Strep Screen result does not rule out the possibility of Group A Streptococci in the specimen. A Group A Strep DNA test is available upon request. [employer] Phone: Special Requests NOT REPORTED [employer] Phone: Specimen Description .THROAT [employer] Phone: [employer] Phone: XR SHOULDER RIGHT (MIN 2 VIE WS)Ordered By: Anuj Quinn on 11-20-2020 No acute fracture or traumatic malalignment. [employer] Phone: EXAMINATION: XR SHOULDER RIGHT (MIN 2 VIEWS), , 11/20/2020 9:30 PM EDT INDICATION: Reason for exam:->shoulder pain HISTORY: Ordering Provider Reason for Exam: Technologist Note: Additional: COMPARISON: None. TECHNIQUE: Right shoulder x-ray: 3 view(s). FINDINGS: No acute fracture. Glenohumeral and acromioclavicular joints are anatomically aligned. Joint spaces are preserved. Soft tissues are unremarkable. [employer] Phone: Ward, pn Incoming Radiant Results From [employer] - 11/20/2020 9:55 PM EDT EXAMINATION: XR [...] IMPRESSION: No acute fracture or traumatic malalignment. [employer] Work Phone: [employer] Work Phone: COVID-19, MOLECULARon 2020 SARS-CoV-2 (COVID-19) RNA KALPESH+probe Ql (Unsp spec) Not detected Normal Not Detected [facility] Comment on above: Order Comment: : [...] at the following links: For Healthcare Providers: https://www.fda.gov/media/025668/download For Patients: https://www.fda.gov/media/507102/download Performed By: #### L [id number] #### [facility] [address] [place] [address] Joe Rider M.D. [id number] HbA1c (Bld) [Mass fraction]O rdered By: Zelda Bautista on 07-09-2020 Interpretation and review of laboratory results Normal [facility] POC Hemoglobin [id number] By : Zelda Bautista on 07-09-2020 HbA1c (Bld) [Mass fraction] 5.2 % 4.0 - 6.0 % [facility] HbA1c (Bld) [Mass fraction]O rdered By: Lelo Gallegos on 06-09-2020 Interpretation and review of laboratory results Normal [facility] POC Hemoglobin [id number] By : Lelo Gallegos on 06-09-2020 HbA1c (Bld) [Mass fraction] 5.6 % 4.0 - 6.0 % [facility] CBC Auto Differentialon 03-08 Basophils (Bld) [#/Vol] 0.00 10*3/uL [place] Basophils/100 WBC (Bld) 0 % 0 - 2 % [place] Differential Type YES [place] Eosinophils (Bld) [#/Vol] 0.10 10*3/uL [place] Eosinophils/100 WBC (Bld) 1 % 0 - 5 % [place] Erythrocyte distribution width (RBC) [Ratio] 14.2 % 12.1 - 15.2 % [place] Hematocrit (Bld) [Volume fraction] 36.1 % 36 - 46 % [place] Hemoglobin (Bld) [Mass/Vol] 12.5 g/dL 12 - 16 g/dL [place] Interpretation and review of laboratory results Abnormal [place] Lymphocytes (Bld) [#/Vol] 2.00 10*3/uL [place] Lymphocytes/100 WBC (Bld) 14 % Low 15 - 40 % [place] MCH (RBC) [Entitic mass] 30.6 pg 26 - 34 pg [place] MCHC (RBC) [Mass/Vol] 34.5 g/dL 31 - 3 7 g/dL [place] MCV (RBC) [Entitic vol] 88.5 fL 80 - 100 fL [place] Monocytes (Bld) [#/Vol] 0.80 10*3/uL [place] Monocytes/100 WBC (Bld) 6 % 4 - 8 % [place] Platelet mean volume (Bld) [Entitic vol] NOT REPORTED 6 - 12 fL [place] Platelets (Bld) [#/Vol] 300 10*3/uL [place] Platelets (Bld) [#/Vol] NOT REPORTED [place] RBC (Bld) [#/Vol] 4.08 10*6/uL 4 - 5.2 m/uL [place] RBC morphology finding Nom (Bld) NOT REPORTED [place] Segmented neutrophils/100 WBC (Bld) 79 % High 47 - 75 % [place] Segs Absolute 10.70 High [place] WBC (Bld) [#/Vol] 13.6 10*3/uL [place] WBC (Bld) [#/Vol] NOT REPORTED per 100 WBC [place] WBC Morphology NOT REPORTED [place] COVID-19, PCRon 03-26-2020 SARS-CoV-2, Rapid Not Detected Not Detected [place] Comment on above: Rapid NAAT: The [...] management decisions. Fact sheet for Healthcare Providers: https://www.fda.gov/media/713032/download Fact sheet for Patients: https://www.fda.gov/media/611120/download Methodology: Isothermal Nucleic Acid Amplification Source .THROAT [place] Comprehensive Metabolic Pane l w/ Reflex to MGon 03-26-2020 Albumin [Mass/Vol] 3.3 g/dL Low 3.5 - 5.2 g/dL [place] Albumin/Globulin [Mass ratio] NOT REPORTED [place] ALP [Catalytic activity/Vol] 57 U/L 35 - 104 U/L [place] ALT [Catalytic activity/Vol] U/L Low 5 - 33 U/L [place] Anion gap [Moles/Vol] 11 mmol/L 9 - 17 mmol/L [place] AST [Catalytic activity/Vol] 9 U/L <32 [place] Bilirubin Ql (U) 0.10 mg/dL Low 0.3 - 1.2 mg/dL [place] Bun/Cre Ratio 21 High [place] Calcium [Mass/Vol] 10.2 mg/dL 8.6 - 10. 4 mg/dL [place] Chloride [Moles/Vol] 104 mmol/L 98 - 10 7 mmol/L [place] CO2 [Moles/Vol] 21 mmol/L 20 - 31 mmol/L [place] Creatinine [Mass/Vol] 0.42 mg/dL Low 0.5 - 0.9 mg/dL [place] GFR >60 >60 mL/min [place] GFR Non- >60 >60 mL/min [place] GFR/1.73 sq M predicted among non-blacks MDRD (S/P/Bld) [Vol rate/Area] NOT REPORTED [place] GFR/1.73 sq M predicted among non-blacks MDRD (S/P/Bld) [Vol rate/Area] [place] Comment on above: Average GFR for 30-3 9 years old: 107 mL/min/1.73sq m Chronic Kidney Disease: <60 mL/min/1.73sq m Kidney failure: <15 mL/min/1.73sq m eGFR calculated using average adult body mass. Additional eGFR calculator available at: http://www.ROCKI.[employer]/multiple_crcl_2012.htm Glucose [Mass/Vol] 100 mg/dL High 70 - 99 mg/dL [place] Interpretation and review of laboratory results Abnormal [place] Potassium [Moles/Vol] 3.8 mmol/L 3.7 - 5.3 mmol/L [place] Protein [Mass/Vol] 6.5 g/dL 6.4 - 8.3 g/dL [place] Sodium [Moles/Vol] 136 mmol/L 135 - 144 mmol/L [place] Urea nitrogen [Mass/Vol] 9 mg/dL 6 - 20 mg/dL [place] Otheron 03-26-2020 SARS-CoV-2 [place] Immature granulocytes (Bld) [#/Vol] NOT REPORTED [place] Urinalysis, reflex to micros copicon 03-26-2020 Bilirubin Urine Negative NEGATIVE [facility] [place] [place] Color, UA YELLOW YELLOW [place] Glucose, Ur Negative NEGATIVE [place] Ketones Ql (U) Negative NEGATIVE [place] Leukocyte esterase Test strip Ql (U) Negative NEGATIVE [place] Nitrite, Urine Negative NEGATIVE [place] pH, UA 7.0 [place] Protein (U) [Mass/Vol] Negative NEGATIVE [place] Specific [place], UA 1.010 [place] Turbidity UA CLEAR CLEAR [place] Urinalysis Comments [place] Urine Hgb Negative NEGATIVE [place] Urobilinogen, Urine Normal Normal [place] Wet Prep, Genitalon 11-20-19 Direct Exam MODERATE EPITHELIAL CELLS Abnormal [place] Direct Exam FEW TRICHOMONAS SEEN Abnormal [place] Direct Exam MODERATE BACTERIA Abnormal [place] Direct Exam Few epithelials coated with bacteria resembling clue cells. Abnormal [place] Direct Exam NO FUNGAL ELEMENTS SEEN [place] Interpretation and review of laboratory results Abnormal [place] Special Requests NOT REPORTED [place] Specimen Description .VAGINAL SPECIMEN [place] WBC (Bld) [#/Vol] FEW WBC SEEN Abnormal [place] Basic Metabolic Panelon 06-05 Anion gap [Moles/Vol] 15 mmol/L 10 - 2 0 mmol/L [facility] Calcium [Mass/Vol] 8.6 mg/dL 8.4 - 10. 2 mg/dL [facility] Chloride [Moles/Vol] 102 mmol/L 98 - 10 8 mmol/L [facility] Creatinine [Mass/Vol] 0.36 mg/dL Low 0.40 - 1.10 [facility] GFR/1.73 sq M predicted among non-blacks MDRD (S/P/Bld) [Vol rate/Area] The eGFR should be used for monitoring renal function only and not for medication dosing. [facility] GFR/1.73 sq M.predicted CKD-EPI (S/P/Bld) [Vol rate/Area] 146 >=60 mL/min/1.73 m2 [facility] Glucose [Mass/Vol] 102 mg/dL High 65 - 99 mg/dL [facility] HCO3 [Moles/Vol] 25 mmol/L 21 - 32 mmol/L [facility] Interpretation and review of laboratory results Abnormal [facility] Potassium [Moles/Vol] 4.1 mmol/L 3.5 - 5.1 mmol/L [facility] Sodium [Moles/Vol] 138 mmol/L 135 - 145 mmol/L [facility] Urea nitrogen [Mass/Vol] 5 mg/dL Low 8 - 25 mg/dL [facility] Urea nitrogen/Creatinine [Mass ratio] 13.9 mg/mg [facility] Hepatic Function Panelon Albumin [Mass/Vol] 3.3 g/dL 3.2 - 5.2 g/dL [facility] ALP [Catalytic activity/Vol] 253 U/L High 40 - 140 U/L [facility] ALT [Catalytic activity/Vol] 686 U/L High 0 - 40 U/L [facility] AST [Catalytic activity/Vol] 349 U/L High 0 - 45 U/L [facility] Bilirubin [Mass/Vol] 6.0 mg/dL High 0 - 1.3 mg/dL [facility] Bilirubin.conjugated [Mass/Vol] 5.1 mg/dL High 0 - 0.4 mg/dL [facility] Interpretation and review of laboratory results Abnormal [facility] Protein [Mass/Vol] 6.8 g/dL 6 - 8 g/dL [facility] Bilirubin, Directon 06-16-19 20 Bilirubin.conjugated [Mass/Vol] 5.4 mg/dL High 0 - 0.4 mg/dL [facility] Interpretation and review of laboratory results Abnormal [facility] CBCon 06-16-2019 Erythrocyte distribution width (RBC) [Entitic vol] 15.1 % High 11.6 - 14.8 % [facility] Hematocrit (Bld) [Volume fraction] 38.5 % 36 - 46 % [facility] Hemoglobin (Bld) [Mass/Vol] 12.9 g/dL 12 - 16 g/dL [facility] Interpretation and review of laboratory results Abnormal [facility] MCH (RBC) [Entitic mass] 29.1 pg 26 - 34 pg [facility] MCHC (RBC) [Mass/Vol] 33.5 g/dL 31 - 3 7 g/dL [facility] MCV (RBC) [Entitic vol] 86.9 fL 80 - 100 fL [facility] Nucleated RBC (Bld) [#/Vol] 0.00 10*3/uL [facility] Nucleated RBC/100 WBC (Bld) [Ratio] 0.0 % [facility] Platelet mean volume (Bld) [Entitic vol] 11.3 fL 9 - 15.5 fL [facility] Platelets (Bld) [#/Vol] 185 10*3/uL [facility] RBC (Bld) [#/Vol] 4.43 10*6/uL [facility] WBC (Bld) [#/Vol] 6.48 10*3/uL [facility] Comprehensive Metabolic Pane cayden 06-16-2019 Albumin [Mass/Vol] 3.3 g/dL 3.2 - 5.2 g/dL [facility] ALP [Catalytic activity/Vol] 217 U/L High 40 - 140 U/L [facility] ALT [Catalytic activity/Vol] 825 U/L High 0 - 40 U/L [facility] Anion gap [Moles/Vol] 14 mmol/L 10 - 2 0 mmol/L [facility] AST [Catalytic activity/Vol] 544 U/L High 0 - 45 U/L [facility] Bilirubin [Mass/Vol] 5.9 mg/dL High 0 - 1.3 mg/dL [facility] Calcium [Mass/Vol] 8.4 mg/dL 8.4 - 10. 2 mg/dL [facility] Chloride [Moles/Vol] 103 mmol/L 98 - 10 8 mmol/L [facility] Creatinine [Mass/Vol] 0.32 mg/dL Low 0.40 - 1.10 [facility] GFR/1.73 sq M predicted among non-blacks MDRD (S/P/Bld) [Vol rate/Area] The eGFR should be used for monitoring renal function only and not for medication dosing. [facility] GFR/1.73 sq M.predicted CKD-EPI (S/P/Bld) [Vol rate/Area] 152 >=60 mL/min/1.73 m2 [facility] Glucose [Mass/Vol] 92 mg/dL 65 - 99 mg/dL [facility] HCO3 [Moles/Vol] 26 mmol/L 21 - 32 mmol/L [facility] Interpretation and review of laboratory results Abnormal [facility] Potassium [Moles/Vol] 4.3 mmol/L 3.5 - 5.1 mmol/L [facility] Protein [Mass/Vol] 6.2 g/dL 6 - 8 g/dL [facility] Sodium [Moles/Vol] 139 mmol/L 135 - 145 mmol/L [facility] Urea nitrogen [Mass/Vol] 4 mg/dL Low 8 - 25 mg/dL [facility] Urea nitrogen/Creatinine [Mass ratio] 12.5 mg/mg [facility] Bilirubin, Directon 06-15-19 20 Bilirubin.conjugated [Mass/Vol] 4.7 mg/dL High 0 - 0.4 mg/dL [facility] Interpretation and review of laboratory results Abnormal [facility] CBCon 06-15-2019 Erythrocyte distribution width (RBC) [Entitic vol] 14.8 % 11.6 - 14.8 % [facility] Hematocrit (Bld) [Volume fraction] 38.5 % 36 - 46 % [facility] Hemoglobin (Bld) [Mass/Vol] 12.6 g/dL 12 - 16 g/dL [facility] MCH (RBC) [Entitic mass] 29.0 pg 26 - 34 pg [facility] MCHC (RBC) [Mass/Vol] 32.7 g/dL 31 - 3 7 g/dL [facility] MCV (RBC) [Entitic vol] 88.5 fL 80 - 100 fL [facility] Nucleated RBC (Bld) [#/Vol] 0.00 10*3/uL [facility] Nucleated RBC/100 WBC (Bld) [Ratio] 0.0 % [facility] Platelet mean volume (Bld) [Entitic vol] 11.0 fL 9 - 15.5 fL [facility] Platelets (Bld) [#/Vol] 155 10*3/uL [facility] RBC (Bld) [#/Vol] 4.35 10*6/uL [facility] WBC (Bld) [#/Vol] 5.74 10*3/uL [facility] Comprehensive Metabolic Pane cayden 06-15-2019 Albumin [Mass/Vol] 3.2 g/dL 3.2 - 5.2 g/dL [facility] ALP [Catalytic activity/Vol] 193 U/L High 40 - 140 U/L [facility] ALT [Catalytic activity/Vol] 888 U/L High 0 - 40 U/L [facility] Anion gap [Moles/Vol] 15 mmol/L 10 - 2 0 mmol/L [facility] AST [Catalytic activity/Vol] 667 U/L High 0 - 45 U/L [facility] Bilirubin [Mass/Vol] 5.2 mg/dL High 0 - 1.3 mg/dL [facility] Calcium [Mass/Vol] 8.2 mg/dL Low 8.4 - 10. 2 mg/dL [facility] Chloride [Moles/Vol] 103 mmol/L 98 - 10 8 mmol/L [facility] Creatinine [Mass/Vol] 0.36 mg/dL Low 0.40 - 1.10 [facility] GFR/1.73 sq M predicted among non-blacks MDRD (S/P/Bld) [Vol rate/Area] The eGFR should be used for monitoring renal function only and not for medication dosing. [facility] GFR/1.73 sq M.predicted CKD-EPI (S/P/Bld) [Vol rate/Area] 146 >=60 mL/min/1.73 m2 [facility] Glucose [Mass/Vol] 122 mg/dL High 65 - 99 mg/dL [facility] HCO3 [Moles/Vol] 22 mmol/L 21 - 32 mmol/L [facility] Interpretation and review of laboratory results Abnormal [facility] Potassium [Moles/Vol] 3.8 mmol/L 3.5 - 5.1 mmol/L [facility] Protein [Mass/Vol] 5.8 g/dL Low 6 - 8 g/dL [facility] Sodium [Moles/Vol] 136 mmol/L 135 - 145 mmol/L [facility] Urea nitrogen [Mass/Vol] 5 mg/dL Low 8 - 25 mg/dL [facility] Urea nitrogen/Creatinine [Mass ratio] 13.9 mg/mg [facility] NM HEPATOBILIARY WO EJECTION FRACTIONon 06-15-2019 [...] small bowel are not visualized. [facility] Opacified liver with no visualization of [...] regarding the presence or absence of cholecystitis. [employer] Workstation ID: [id number] [facility] Interface, Rad In Fuji Speechq - [...] regarding the presence or absence of cholecystitis. [employer] Workstation ID: [id number] [facility] APTTon 06-14-2019 aPTT Coag (Bld) [Time] 31.1 s [facility] [place] Comment on above: PTT Therapeutic Range: 61.7-88.4 Therapeutic range corresponds to plasma heparin levels of 0.3-0.7 U/mL. Acetaminophen Levelon 2019 Acetaminophen [Mass/Vol] 9.1 [facility] Interpretation and review of laboratory results Normal [facility] Bilirubin, Directon 06-14-19 20 Bilirubin.conjugated [Mass/Vol] 4.3 mg/dL High 0 - 0.4 mg/dL [facility] Interpretation and review of laboratory results Abnormal [facility] CBC WITH AUTO DIFFERENTIALon 06-14-2019 Erythrocyte distribution width (RBC) [Entitic vol] 14.5 % 11.6 - 14.8 % [facility] Hematocrit (Bld) [Volume fraction] 34.6 % Low 36 - 46 % [facility] Hemoglobin (Bld) [Mass/Vol] 11.6 g/dL Low 12 - 16 g/dL [facility] Interpretation and review of laboratory results Abnormal [facility] MCH (RBC) [Entitic mass] 29.7 pg 26 - 34 pg [facility] MCHC (RBC) [Mass/Vol] 33.5 g/dL 31 - 3 7 g/dL [facility] MCV (RBC) [Entitic vol] 88.5 fL 80 - 100 fL [facility] Nucleated RBC (Bld) [#/Vol] 0.00 10*3/uL [facility] Nucleated RBC/100 WBC (Bld) [Ratio] 0.0 % [facility] Platelet mean volume (Bld) [Entitic vol] 10.8 fL 9 - 15.5 fL [facility] Platelets (Bld) [#/Vol] 172 10*3/uL [facility] RBC (Bld) [#/Vol] 3.91 10*6/uL Low [facility] WBC (Bld) [#/Vol] 7.28 10*3/uL [facility] CT ABDOMEN PELVIS W IV CONTR AST Additional Contrast? Noneon 06-14-2019 [place], pn Incoming Radiant Results From [employer] - 06/14/2019 12:27 AM EDT EXAMINATION: CT [...] liver function panel and consider ultrasound imaging. [place] Pericholecystic fluid versus gallbladder wall thickening and additional periportal edema. There are no visualized stones in the gallbladder gallbladder and/or hepatic pathology are suspected. Correlate with liver function panel and consider ultrasound imaging. [place] EXAMINATION: CT ABDOMEN PELVIS W IV [...] structures demonstrate no acute or concerning abnormality. [facility] [place] COMPARISON IMPORTon 06-13 This order has been auto-finalized and does not contain a result. [facility] Comprehensive Metabolic Pane cayden 06-14-2019 Albumin [Mass/Vol] 3.0 g/dL Low 3.2 - 5.2 g/dL [facility] ALP [Catalytic activity/Vol] 183 U/L High 40 - 140 U/L [facility] ALT [Catalytic activity/Vol] 808 U/L High 0 - 40 U/L [facility] Anion gap [Moles/Vol] 16 mmol/L 10 - 2 0 mmol/L [facility] AST [Catalytic activity/Vol] 592 U/L High 0 - 45 U/L [facility] Bilirubin [Mass/Vol] 4.9 mg/dL High 0 - 1.3 mg/dL [facility] Calcium [Mass/Vol] 8.4 mg/dL 8.4 - 10. 2 mg/dL [facility] Chloride [Moles/Vol] 104 mmol/L 98 - 10 8 mmol/L [facility] Creatinine [Mass/Vol] 0.43 mg/dL 0.40 - 1.10 [facility] GFR/1.73 sq M predicted among non-blacks MDRD (S/P/Bld) [Vol rate/Area] The eGFR should be used for monitoring renal function only and not for medication dosing. [facility] GFR/1.73 sq M.predicted CKD-EPI (S/P/Bld) [Vol rate/Area] 138 >=60 mL/min/1.73 m2 [facility] Glucose [Mass/Vol] 79 mg/dL 65 - 99 mg/dL [facility] HCO3 [Moles/Vol] 21 mmol/L 21 - 32 mmol/L [facility] Interpretation and review of laboratory results Abnormal [facility] Potassium [Moles/Vol] 3.8 mmol/L 3.5 - 5.1 mmol/L [facility] Protein [Mass/Vol] 5.7 g/dL Low 6 - 8 g/dL [facility] Sodium [Moles/Vol] 137 mmol/L 135 - 145 mmol/L [facility] Urea nitrogen [Mass/Vol] 9 mg/dL 8 - 25 mg/dL [facility] Urea nitrogen/Creatinine [Mass ratio] 20.9 mg/mg High [facility] DRUGS OF ABUSE SCREEN, URINE on 06-14-2019 Amphetamines Ql (U) None Detected None Detected [facility] Comment on above: Urine Amphetamine Cu toff: < 1000 ng/mL = None Detected Barbiturates Screen Ql (U) None Detected None Detected [facility] Comment on above: Urine Barbiturates C utoff: < 200 ng/mL = None Detected Benzodiazepines Ql (U) None Detected None Detected [facility] Comment on above: Urine Benzodiazepine Cutoff: < 300 ng/mL = None Detected Cannabinoids Screen Ql (U) None Detected None Detected [facility] Comment on above: Urine Cannabinoids C utoff: < 50 ng/mL = None Detected Cocaine Ql (U) Positive Abnormal None Detected [facility] Comment on above: Urine Cocaine Cutoff : < 300 ng/mL = None Detected Interpretation and review of laboratory results Abnormal [facility] Methadone Screen Ql (U) None Detected Non e Detected [facility] Comment on above: Urine Methadone Cuto ff: < 300 ng/mL = None Detected Opiates Screen Ql (U) None Detected None Detected [facility] Comment on above: Urine Opiates Cutoff : < 300 ng/mL = None Detected Oxycodone Ql (U) None Detected None Detected [facility] Comment on above: Urine Oxycodone Cuto ff: < 100 ng/mL = None Detected Screen results should be used for treatment purposes only. Specimen will be kept for 2 weeks, if the sample is adequate. Confirmation testing can be initiated by calling the lab within 2 weeks. [facility] HEPATITIS PANEL, ACUTEon HAV IgM Ql (S) Negative Negative [facility] HBV core IgM Ql (S) Negative Negative [facility] HBV surface Ag Ql (S) Negative Negative [facility] HCV Ab Ql (S) Positive Abnormal Negative [facility] Comment on above: A positive antibody test requires additional follow-up testing, Hepatitis C Virus Quantitation, to determine if a person is currently infected with Hepatitis C. Interpretation and review of laboratory results Abnormal [facility] Test performed using Constantin DEVIKA immunoassay system [facility] Lactic Acid, Plasmaon 2019 Interpretation and review of laboratory results Normal [facility] Lactate [Moles/Vol] 0.8 mmol/L 0.6 - 2 mmol/L [facility] MORPHOLOGYon 06-14-2019 Platelets LM Ql (Bld) Normal Normal [facility] RBC morphology finding Nom (Bld) Normal [facility] MR MRCPon 06-14-2019 EXAMINATION: MR MRCP [...] Axial T1-weighted images were obtained in- and fcx-yd-yavso. Axial diffusion-weighted imaging was also performed. FINDINGS: The liver overall appears enlarged with the right hepatic lobe measuring 22.6 cm ridhjspa-ei-erjrsmi r. The spleen measures 14.6 cm stmhyije-yc-ekanuaw r and is also mildly enlarged. There [...] kidney. Bowel pattern is nonobstructive. [facility] 1. Re-demonstration of diffuse periportal edema as well as significant circumferential gallbladder wall edema similar to that seen on prior CT study. 2. Mild hepatosplenomegaly. 3. No obvious gallstones. Negative for biliary or pancreatic ductal dilatation. Negative for choledocholithiasis . 4. Trace volume of abdominal ascites. [employer] Workstation ID: [id number] [facility] Interface, Rad In Asif Chavis - 06/14/2019 [...] Axial T1-weighted images were obtained in- and ewo-ju-gszzc. Axial diffusion-weighted imaging was also performed. FINDINGS: The liver overall appears enlarged with the right hepatic lobe measuring 22.6 cm yebbfiuj-yz-bgmyftm r. The spleen measures 14.6 cm ncrksfrk-vi-yviybbg r and is also mildly enlarged. There [...] . 4. Trace volume of abdominal ascites. [employer] Workstation ID: [id number] [facility] Manual Differentialon 2019 Basophils (Bld) [#/Vol] 0.00 10*3/uL [facility] Basophils/100 WBC (Bld) 0.0 % [facility] Eosinophils (Bld) [#/Vol] 0.00 10*3/uL [facility] Eosinophils/100 WBC (Bld) 0.0 % [facility] Lymphocytes (Bld) [#/Vol] 3.28 10*3/uL [facility] Lymphocytes/100 WBC (Bld) 37.0 % [facility] Monocytes (Bld) [#/Vol] 0.44 10*3/uL [facility] Monocytes/100 WBC (Bld) 6.0 % [facility] Neutrophils (Bld) [#/Vol] 3.57 10*3/uL [facility] Neutrophils/100 WBC (Bld) 49.0 % [facility] Variant lymphocytes/100 WBC (Bld) 8.0 % [facility] PT/INRon 06-14-2019 INR Coag (PPP) [Relative time] 1.3 {INR} [facility] Interpretation and review of laboratory results Abnormal [facility] PT Coag (PPP) [Time] 15.[address] [facility] During the induction phase of oral anticoagulation, the INR may not reflect the anticoagulation status of the patient. Therapeutic ranges for INR's are: Most clinical situations: INR 2.0-3.0 Mechanical Prosthetic Valve: INR 2.5-3.5 Critical: INR >5.0 [facility] Protime-INRon 06-14-2019 INR Coag (PPP) [Relative time] 1.2 {INR} [facility] [place] Comment on above: * THERAPY INDICATIONS * REFERENCE RANGES Pts not on anti-coagulants 1.0 - 1.5 INR Low risk pts on anti-coagulants 2.0 - 3.0 INR High risk pts on anti-coagulants 2.5 - 3.5 INR Prevention of atrial thrombo-embolism 3.0 - 4.5 INR Interpretation and review of laboratory results Abnormal [facility] [place] [place] Coag (PPP) [Time] 11.7 s [facility] [place], [place] Salicylate Levelon 0 Interpretation and review of laboratory results Abnormal [facility] Salicylates [Mass/Vol] mg/dL Low 10 - 20 mg/dL [facility] URINALYSISon 06-14-2019 Bacteria Auto Ql (U) Rare Abnormal None Se en /hpf [facility] Bilirubin Ql (U) Positive Abnormal Negative [facility] Comment on above: False positive urine bilirubins can occur in the setting of a large amount of hemoglobin and secondary to medications including anti-inflammatory agents, rifampin, and pyridium. Clarity Refractometry automated (U) Clear Clear [facility] Color (U) Erica Abnormal Colorless, Yellow [facility] Epithelial cells.squamous Auto (Urine sed) [#/Area] 4 [facility] alth Glucose Auto test strip (U) [Mass/Vol] Negative Negative mg/dL [facility] Hemoglobin Auto test strip Ql (U) Negative Negative [facility] Interpretation and review of laboratory results Abnormal [facility] Ketones (U) [Mass/Vol] >=80 Abnormal Negat krystal mg/dL [facility] Leukocyte esterase Auto test strip Ql (U) Negative Negative [facility] Mucus Auto (Urine sed) [#/Area] Rare None Seen, Rare /lpf [facility] Nitrite Auto test strip Ql (U) Negative Negative [facility] pH (U) 6.0 [pH] [facility] Protein (U) [Mass/Vol] 30 Abnormal Negat krystal mg/dL [facility] Comment on above: False positive resul ts may occur in urines with large amounts of hemoglobin, pH greater than 8.0, contrast medium, or disinfectants including ammonium compounds. RBC Auto (Urine sed) [#/Area] 2 [facility] Specific gravity (U) [Rel density] 1.028 High [facility] Urobilinogen (U) [Mass/Vol] >=4.0 Abnormal <2.0 mg/dL [facility] WBC Auto (Urine sed) [#/Area] 2 [facility] Microscopic examination is performed on all urinalysis samples and only positive findings are reported. The test for blood on the chemical analytic portion of urinalysis may also be positive due to hemoglobinuria and myoglobinuria and if red blood cells are present they are quantified by microscopic examination. [facility] US ABDOMEN LIMITED STUDYon 0 06-14-2019 [...] liver likely small hemangioma. Workstation ID: [id number] [employer] EXAMINATION: US ABDOMEN LIMITED STUDY HISTORY: RUQ [...] cm in length. No hydronephrosis. [facility] 1. Contracted gallbladder limits evaluation. No cholelithiasis identified. Nonspecific edematous gallbladder wall thickening and reported positive sonographic Short's sign, cannot exclude acalculus cholecystitis. No biliary ductal dilatation. 2. 1.3 cm echogenic lesion left lobe of the liver likely small hemangioma. Workstation ID: [id number] [facility] Amylaseon 06-13-2019 Amylase [Catalytic activity/Vol] 22 U/L Low 28 - 100 U/L [place] CBC Auto Differentialon Basophils (Bld) [#/Vol] 0.00 10*3/uL [place] Basophils/100 WBC (Bld) 1 % 0 - 2 % [place] Differential Type YES [place] Eosinophils (Bld) [#/Vol] 0.00 10*3/uL [place] Eosinophils/100 WBC (Bld) 0 % 0 - 5 % [place] Erythrocyte distribution width (RBC) [Ratio] 14.9 % 12.1 - 15.2 % [place] Hematocrit (Bld) [Volume fraction] 43.3 % 36 - 46 % [place] Hemoglobin (Bld) [Mass/Vol] 14.3 g/dL 12 - 16 g/dL [place] Lymphocytes (Bld) [#/Vol] 2.50 10*3/uL [place] Lymphocytes/100 WBC (Bld) 30 % 15 - 40 % [place] MCH (RBC) [Entitic mass] 28.8 pg 26 - 34 pg [place] MCHC (RBC) [Mass/Vol] 33.1 g/dL 31 - 3 7 g/dL [place] MCV (RBC) [Entitic vol] 87.2 fL 80 - 100 fL [place] Monocytes (Bld) [#/Vol] 0.70 10*3/uL [place] Monocytes/100 WBC (Bld) 8 % 4 - 8 % [place] Platelet mean volume (Bld) [Entitic vol] NOT REPORTED 6 - 12 fL [place] Platelets (Bld) [#/Vol] 203 10*3/uL [place] Platelets (Bld) [#/Vol] NOT REPORTED [place] RBC (Bld) [#/Vol] 4.97 10*6/uL 4 - 5.2 m/uL [place] RBC morphology finding Nom (Bld) NOT REPORTED [place] Segmented neutrophils/100 WBC (Bld) 61 % 47 - 75 % [place] Segs Absolute 5.20 [place] WBC (Bld) [#/Vol] 8.4 10*3/uL [place] WBC (Bld) [#/Vol] NOT REPORTED per 100 WBC [place] WBC Morphology NOT REPORTED [place] Comprehensive Metabolic Pane l w/ Reflex to MGon 06-13-2019 Albumin [Mass/Vol] 4.1 g/dL 3.5 - 5.2 g/dL [place] Albumin/Globulin [Mass ratio] NOT REPORTED [place] ALP [Catalytic activity/Vol] 255 U/L High 35 - 104 U/L [place] ALT [Catalytic activity/Vol] 1116 U/L High 5 - 33 U/L [place] Anion gap [Moles/Vol] 17 mmol/L 9 - 17 mmol/L [place] AST [Catalytic activity/Vol] 665 U/L High <32 [place] Bilirubin Ql (U) 6.52 mg/dL High 0.3 - 1.2 mg/dL [place] Bun/Cre Ratio 17 [place] Calcium [Mass/Vol] 10.1 mg/dL 8.6 - 10. 4 mg/dL [place] Chloride [Moles/Vol] 95 mmol/L Low 98 - 10 7 mmol/L [place] CO2 [Moles/Vol] 24 mmol/L 20 - 31 mmol/L [place] Creatinine [Mass/Vol] 0.82 mg/dL 0.5 - 0.9 mg/dL [place] GFR >60 >60 mL/min [place] GFR Non- >60 >60 mL/min [place] GFR/1.73 sq M predicted among non-blacks MDRD (S/P/Bld) [Vol rate/Area] [place] Comment on above: Average GFR for 20-2 9 years old: 116 mL/min/1.73sq m Chronic Kidney Disease: <60 mL/min/1.73sq m Kidney failure: <15 mL/min/1.73sq m eGFR calculated using average adult body mass. Additional eGFR calculator available at: http://www.SurIDx/multiple_crcl_2012.htm GFR/1.73 sq M predicted among non-blacks MDRD (S/P/Bld) [Vol rate/Area] NOT REPORTED [place] Glucose [Mass/Vol] 134 mg/dL High 70 - 99 mg/dL [place] Interpretation and review of laboratory results Abnormal [place] Potassium [Moles/Vol] 3.7 mmol/L 3.7 - 5.3 mmol/L [place] Protein [Mass/Vol] 8.1 g/dL 6.4 - 8.3 g/dL [place] Sodium [Moles/Vol] 136 mmol/L 135 - 144 mmol/L [place] Urea nitrogen [Mass/Vol] 14 mg/dL 6 - 20 mg/dL [place] Drug screen multi urineon Amphetamine Screen, Ur Negative NEGATIVE [place] Comment on above: (Positive cutoff 500 ng/mL) Barbiturate Screen, Ur Negative NEGATIVE [place] Comment on above: (Positive cutoff 200 ng/mL) Benzodiazepine Screen, Urine Negative NEGATIVE [place] Comment on above: (Positive cutoff 150 ng/mL) Buprenorphine Urine NOT REPORTED NEGATIVE [place] Cannabinoid Scrn, Ur Negative NEGATIVE [place] Comment on above: (Positive cutoff 50 ng/mL) Cocaine Metabolite, Urine Positive Abnormal NEGATIVE [place] Comment on above: (Positive cutoff 150 ng/mL) Interpretation and review of laboratory results Abnormal [place] MDMA, Urine NOT REPORTED NEGATIVE [place] Methadone Screen, Urine Negative NEGATIVE [place] Comment on above: (Positive cutoff 200 ng/mL) Methamphetamine, Urine Negative NEGATIVE [place] Comment on above: (Positive cutoff 500 ng/mL) Opiates, Urine Positive Abnormal NEGATIVE [place] Comment on above: (Positive cutoff 100 ng/mL) Oxycodone Screen, Ur Negative NEGATIVE [place] Comment on above: (Positive cutoff 100 ng/mL) Phencyclidine, Urine Negative NEGATIVE [place] Comment on above: (Positive cutoff 25 ng/mL) Propoxyphene, Urine Negative NEGATIVE [place] Comment on above: (Positive cutoff 300 ng/mL) Test Information NOT REPORTED [place] Tricyclic Antidepressants, Urine Negative NEGATIVE [place] Comment on above: (Positive cutoff 300 ng/mL) Drug screen results are to be used for medical purposes only. All positive results are unconfirmed. Testing for employment or legal uses should be sent to a reference laboratory for confirmation. Lactic Acidon 06-13-2019 Lactate [Moles/Vol] 1.2 mmol/L 0.5 - 2. 2 mmol/L [place] Lipaseon 06-13-2019 Lipase [Catalytic activity/Vol] 8 U/L Low 13 - 60 U/L [place] Microscopic Urinalysison Amorphous, UA NOT REPORTED None [place] Bacteria, UA 2+ Abnormal None [place] Casts UA 5 TO 10 HYALINE /LPF [place] Casts UA 2 TO 5 WAXY /LPF [place] Crystals, UA NOT REPORTED None /HPF [place] Epithelial Cells UA LOADED /HPF [place] Interpretation and review of laboratory results Abnormal [place] Mucus, UA 4+ Abnormal [place] Other Observations UA NOT REPORTED NOT REQ. [place] RBC (U) [#/Vol] 5 TO 10 [place] Renal Epithelial, UA NOT REPORTED 0 /HPF [place] Trichomonas, UA NOT REPORTED None [place] WBC, UA 10 TO 20 0 /HPF [place] Yeast, UA NOT REPORTED None [place] Otheron 06-13-2019 Interpretation and review of laboratory results Abnormal [place] Immature granulocytes (Bld) [#/Vol] NOT REPORTED 0 % [place] , Urineon 0 Beta HCG ( test) Ql (U) Negative NEGATIVE [place] Urinalysis, reflex to micros copicon 06-13-2019 Bilirubin Urine 3+ Abnormal NEGATIVE [place] Color, UA BROWN Abnormal YELLOW [place] Glucose, Ur Negative NEGATIVE [place] Interpretation and review of laboratory results Abnormal [place] Ketones Ql (U) MODERATE Abnormal NEGATIVE [place] Leukocyte esterase Test strip Ql (U) 1+ Abnormal NEGATIVE [place] Nitrite, Urine Positive Abnormal NEGATIVE [place] pH, UA 5.0 [place] Protein (U) [Mass/Vol] 1+ Abnormal NEGATIVE [place] Specific [place], UA 1.020 [place] Turbidity UA CLEAR CLEAR [place] Urinalysis Comments [place] Urine Hgb TRACE Abnormal NEGATIVE [place] Urobilinogen, Urine 12 mg/dL Abnormal Normal [place] Vital Signs Date Time Vital Sign Value Performing Clinician Facility 10-05-2023 21:00-0400 Body temperature 99.61 [degF] Violet Juarez MD Work Phone: [facility] 10-05-2023 21:00-0400 Diastolic blood pressure 68 mm[Hg] Violet Juarez MD Work Phone: [facility] 10-05-2023 21:00-0400 Heart rate 93 /min Violet Juarez MD Work Phone: [facility] 10-05-2023 21:00-0400 Respiratory rate 16 /min Violet Juarez MD Work Phone: [facility] 10-05-2023 21:00-0400 SaO2% (BldA) [Mass fraction] 97 % Violet Juarez MD Work Phone: [facility] 10-05-2023 21:00-0400 Systolic blood pressure 114 mm[Hg] Violet Juarez MD Work Phone: [facility] 05-13-2023 11:27-0500 Body temperature 98.6 [degF] Jonathan Martinez [facility] 05-13-2023 11:27-0500 Diastolic blood pressure 78 mm[Hg] Jonathan Martinez [facility] 05-13-2023 11:27-0500 Heart rate 83 /min Jonathan Martinez [facility] 05-13-2023 11:27-0500 Respiratory rate 18 /min Jonathan Martinez [facility] 05-13-2023 11:27-0500 SaO2% (BldA) [Mass fraction] 97 % Jonathan Martinez [facility] 05-13-2023 11:27-0500 Systolic blood pressure 113 mm[Hg] Jonathan Martinez [facility] 05-11-2023 21:49-0500 Body temperature 98.06 [degF] [facility] 05-11-2023 21:49-0500 Diastolic blood pressure 84 mm[Hg] [facility] 05-11-2023 21:49-0500 Heart rate 105 /min [facility] 05-11-2023 21:49-0500 Respiratory rate 17 /min [facility] 05-11-2023 21:49-0500 SaO2% (BldA) [Mass fraction] 97 % [facility] 05-11-2023 21:49-0500 Systolic blood pressure 130 mm[Hg] Zac [facility] 05-10-2023 11:41-0500 Body height 160 cm Chet Berumen DO Work Phone: [facility] [employer] 05-10-2023 11:41-0500 Body mass index (BMI) [Ratio] 44.29 kg/m2 Chet Berumen Work Phone: [facility] [employer] 05-10-2023 11:41-0500 Body temperature 97.9 [degF] Chet Berumen DO Work Phone: [facility] [employer] 05-10-2023 11:41-0500 Body weight 113.4 kg Chet Berumen DO Work Phone: [facility] [employer] 05-10-2023 11:41-0500 Diastolic blood pressure 76 mm[Hg] Chet Berumen DO Work Phone: [facility] [employer] 05-10-2023 11:41-0500 Heart rate 94 /min Chet Berumen Work Phone: [facility] [employer] [place] [employer] 05-10-2023 11:41-0500 Respiratory rate 18 /min Chet Berumen Work Phone: [facility] [employer] 05-10-2023 11:41-0500 SaO2% (BldA) [Mass fraction] 96 % Chet Berumen Work Phone: [employer] 05-10-2023 11:41-0500 Systolic blood pressure 146 mm[Hg] Chet Berumen DO Work Phone: [employer] 09-04-2022 11:27-0400 Body height 160 cm Erin Lacy MD Work Phone: [employer] 09-04-2022 11:27-0400 Body mass index (BMI) [Ratio] 44.99 kg/m2 Erin Lacy MD Work Phone: [employer] 09-04-2022 11:27-0400 Body temperature 98.2 [degF] Erin Lacy MD Work Phone: [employer] 09-04-2022 11:27-0400 Body weight 115.21 kg Erin Lacy MD Work Phone: [employer] 09-04-2022 11:27-0400 Diastolic blood pressure 71 mm[Hg] Erin Lacy MD Work Phone: [employer] 09-04-2022 11:27-0400 Heart rate 88 /min Erin Lacy MD Work Phone: [employer] 09-04-2022 11:27-0400 Respiratory rate 18 /min Erin Lacy MD Work Phone: [employer] 09-04-2022 11:27-0400 SaO2% (BldA) [Mass fraction] 97 % Erin Lacy MD Work Phone: [employer] 09-04-2022 11:27-0400 Systolic blood pressure 124 mm[Hg] Erin Lacy MD Work Phone: [employer] 06-29-2022 09:49-0400 Diastolic blood pressure 57 mm[Hg] Todd Bing [facility] 06-29-2022 09:49-0400 Heart rate 73 /min Todd Bing [facility] 06-29-2022 09:49-0400 Mean blood pressure 76 mm[Hg] Todd Bing [facility] 06-29-2022 09:49-0400 Respiratory rate 16 /min Todd Bing [facility] 06-29-2022 09:49-0400 Systolic blood pressure 113 mm[Hg] Todd Bing [facility] 05-19-2022 19:28-0400 Body height 160 cm Erin Lacy MD Work Phone: [employer] 05-19-2022 19:28-0400 Body mass index (BMI) [Ratio] 45.17 kg/m2 Erin Lacy MD Work Phone: [employer] 05-19-2022 19:28-0400 Body weight 115.67 kg Erin Lacy MD Work Phone: [employer] 05-19-2022 19:25-0400 Body temperature 98.29 [degF] Erin Lacy MD Work Phone: [employer] 05-19-2022 19:25-0400 Diastolic blood pressure 68 mm[Hg] Erin Lacy MD Work Phone: [employer] 05-19-2022 19:25-0400 Heart rate 78 /min Erin Lacy MD Work Phone: [employer] 05-19-2022 19:25-0400 Respiratory rate 16 /min Erin Lacy MD Work Phone: [employer] 05-19-2022 19:25-0400 SaO2% (BldA) [Mass fraction] 98 % Erin Lacy MD Work Phone: [employer] 05-19-2022 19:25-0400 Systolic blood pressure 110 mm[Hg] Erin Lacy MD Work Phone: [employer] 05-11-2022 19:17-0500 Body height 160 cm Anuj Quinn MD Work Phone: [employer] 05-11-2022 19:17-0500 Body mass index (BMI) [Ratio] 45.06 kg/m2 Anuj Quinn MD Work Phone: [employer] 05-11-2022 19:17-0500 Body temperature 98.01 [degF] Anuj Quinn MD Work Phone: [employer] 05-11-2022 19:17-0500 Body weight 115.39 kg Anuj Quinn MD Work Phone: [employer] 05-11-2022 19:17-0500 Diastolic blood pressure 91 mm[Hg] Anuj Quinn MD Work Phone: [employer] [facility] 05-11-2022 19:17-0500 Heart rate 78 /min Anuj Quinn MD Work Phone: [employer] 05-11-2022 19:17-0500 Respiratory rate 18 /min Anuj Quinn MD Work Phone: [facility] [employer] 05-11-2022 19:17-0500 SaO2% (BldA) [Mass fraction] 96 % Anuj Quinn MD Work Phone: [employer] 05-11-2022 19:17-0500 Systolic blood pressure 121 mm[Hg] Anuj Quinn MD Work Phone: [employer] 10-12-2021 18:31-0400 Heart rate 93 /min Rishabh Mancini MD Work Phone: [employer] 10-12-2021 18:31-0400 Respiratory rate 16 /min Rishabh Mancini MD Work Phone: [employer] 10-12-2021 18:31-0400 SaO2% (BldA) [Mass fraction] 97 % Rishabh Mancini MD Work Phone: [employer] 10-12-2021 18:12-0400 Body height 160 cm Rishabh Mancini MD Work Phone: [employer] 10-12-2021 18:12-0400 Body mass index (BMI) [Ratio] 47.12 kg/m2 Rishabh Mancini MD Work Phone: [employer] 10-12-2021 18:12-0400 Body temperature 99.19 [degF] Rishabh Mancini MD Work Phone: [employer] 10-12-2021 18:12-0400 Body weight 120.66 kg Rishabh Mancini MD Work Phone: [facility] [employer] 10-12-2021 18:12-0400 Diastolic blood pressure 77 mm[Hg] Rishabh [facility]ini MD [facility] Phone: [facility] 10-12-2021 18:12-0400 Systolic blood pressure 126 mm[Hg] Rishabh [facility]ancini MD Work Phone: [facility] 07-22-2021 10:38-0400 Body height 160 cm Clark Moser MD Work Phone: [facility] 07-22-2021 10:38-0400 Body mass index (BMI) [Ratio] 47.63 kg/m2 Clark [facility] MD [facility] 07-22-2021 10:38-0400 Body temperature 97.3 [degF] Clark [facility]oser MD [facility] 07-22-2021 10:38-0400 Body weight 121.97 kg Clark [facility]oser MD [facility] 07-22-2021 10:38-0400 Diastolic blood pressure 88 mm[Hg] Clark Mosre MD [facility] 07-22-2021 10:38-0400 Heart rate 104 /min Clark [facility]oser MD [facility] 07-22-2021 10:38-0400 Respiratory rate 18 /min Clark [facility]oser MD [facility] 07-22-2021 10:38-0400 SaO2% (BldA) [Mass fraction] 95 % Clark [facility]oser MD [facility] 07-22-2021 10:38-0400 Systolic blood pressure 126 mm[Hg] Clark Moser MD Work Phone: [facility] 05-15-2021 09:11-0500 Body height 160 cm Angelito [facility] 05-14-2021 10:41-0500 Body height 160 cm Farhat Vang MD Work Phone: [facility] 05-14-2021 10:41-0500 Body mass index (BMI) [Ratio] 44.96 kg/m2 Farhat Vang MD Work Phone: [facility] 05-14-2021 10:41-0500 Body temperature 97.81 [degF] Farhat Vang MD Work Phone: [facility] 05-14-2021 10:41-0500 Body weight 115.12 kg Farhat Vang MD Work Phone: [facility] 05-14-2021 10:41-0500 Diastolic blood pressure 78 mm[Hg] Farhat Vang MD Work Phone: [facility] 05-14-2021 10:41-0500 Heart rate 98 /min Farhat Vang MD Work Phone: [facility] 05-14-2021 10:41-0500 Respiratory rate 18 /min Farhat Vang MD Work Phone: [facility] 05-14-2021 10:41-0500 SaO2% (BldA) [Mass fraction] 97 % Farhat Vang MD Work Phone: [facility] 05-14-2021 10:41-0500 Systolic blood pressure 124 mm[Hg] Farhat Vang MD Work Phone: [facility] 04-16-2021 10:15-0500 Body height 160 cm Farhat Vang MD Work Phone: [facility] 04-16-2021 10:15-0500 Body mass index (BMI) [Ratio] 44.44 kg/m2 Farhat Vang MD Work Phone: [facility] 04-16-2021 10:15-0500 Body temperature 98.01 [degF] Farhat Vang MD Work Phone: [facility] 04-16-2021 10:15-0500 Body weight 113.81 kg Farhat Vang MD Work Phone: [facility] 04-16-2021 10:15-0500 Diastolic blood pressure 78 mm[Hg] Farhat Vang MD Work Phone: [facility] 04-16-2021 10:15-0500 Heart rate 100 /min Farhat Vang MD Work Phone: [facility] 04-16-2021 10:15-0500 Respiratory rate 18 /min Farhat Vang MD Work Phone: [facility] 04-16-2021 10:15-0500 SaO2% (BldA) [Mass fraction] 96 % Farhat Vang MD Work Phone: [facility] 04-16-2021 10:15-0500 Systolic blood pressure 122 mm[Hg] Farhat Vang MD Work Phone: [facility] 03-23-2021 12:40-0500 Body height 160 cm Anuj Quinn MD Work Phone: [facility] 03-23-2021 12:40-0500 Body mass index (BMI) [Ratio] 44.46 kg/m2 Anuj Quinn MD Work Phone: [facility] 03-23-2021 12:40-0500 Body temperature 99.7 [degF] Anuj Quinn MD Work Phone: [facility] 03-23-2021 12:40-0500 Body weight 113.85 kg Anuj Quinn MD Work Phone: [facility] 03-23-2021 12:40-0500 Diastolic blood pressure 74 mm[Hg] Anuj Quinn MD Work Phone: [facility] 03-23-2021 12:40-0500 Heart rate 107 /min Anuj Quinn MD Work Phone: [facility] 03-23-2021 12:40-0500 Respiratory rate 16 /min Anuj Quinn MD Work Phone: [facility] 03-23-2021 12:40-0500 SaO2% (BldA) [Mass fraction] 96 % Anuj Quinn MD Work Phone: [facility] 03-23-2021 12:40-0500 Systolic blood pressure 131 mm[Hg] Anuj Quinn MD Work Phone: [facility] 01-15-2021 10:43-0500 Body height 160 cm Holland Ann MD Work Phone: [facility] 01-15-2021 10:43-0500 Body mass index (BMI) [Ratio] 42.55 kg/m2 Holland Ann MD Work Phone: [facility] 01-15-2021 10:43-0500 Body temperature 97.39 [degF] Holland Ann MD Work Phone: [facility] 01-15-2021 10:43-0500 Body weight 108.95 kg Holland Ann MD Work Phone: [facility] 01-15-2021 10:43-0500 Diastolic blood pressure 66 mm[Hg] Holland Ann MD Work Phone: [facility] 01-15-2021 10:43-0500 Heart rate 101 /min Holland Ann MD Work Phone: [facility] 01-15-2021 10:43-0500 SaO2% (BldA) [Mass fraction] 96 % Holland Ann MD Work Phone: [facility] 01-15-2021 10:43-0500 Systolic blood pressure 112 mm[Hg] Holland Ann MD Work Phone: [facility] 12-27-2020 18:15-0400 Body temperature 98.49 [degF] Wayne Springer MD Work Phone: [employer] Work Phone: 12-27-2020 18:15-0400 Diastolic blood pressure 77 mm[Hg] Wayne Springer MD Work Phone: [employer] Work Phone: Comment on above: Simultaneous filing. User may not have s een previous data. 12-27-2020 18:15-0400 Heart rate 98 /min Wayne Springer MD Work Phone: [employer] Work Phone: 12-27-2020 18:15-0400 Respiratory rate 20 /min Wayne Springer MD Work Phone: [employer] Work Phone: 12-27-2020 18:15-0400 SaO2% (BldA) [Mass fraction] 95 % Wayne Springer MD Work Phone: [employer] Work Phone: Comment on above: Simultaneous filing. User may not have s een previous data. 12-27-2020 18:15-0400 Systolic blood pressure 107 mm[Hg] Wayne Springer MD Work Phone: [employer] Work Phone: Comment on above: Simultaneous filing. User may not have s een previous data. 11-20-2020 21:07-0400 Body height 160 cm Anuj Quinn MD Work Phone: [employer] Work Phone: 11-20-2020 21:07-0400 Body mass index (BMI) [Ratio] 38.62 kg/m2 Anuj Quinn MD Work Phone: [employer] Work Phone: 11-20-2020 21:07-0400 Body temperature 98.6 [degF] Anuj Quinn MD Work Phone: [employer] Work Phone: 11-20-2020 21:07-0400 Body weight 98.88 kg Anuj Quinn MD Work Phone: [employer] Work Phone: 11-20-2020 21:07-0400 Diastolic blood pressure 65 mm[Hg] Anuj Quinn MD Work Phone: [employer] Work Phone: 11-20-2020 21:07-0400 Heart rate 84 /min Anuj Quinn MD Work Phone: [employer] Work Phone: 11-20-2020 21:07-0400 Respiratory rate 16 /min Anuj Quinn MD Work Phone: [employer] Work Phone: 11-20-2020 21:07-0400 SaO2% (BldA) [Mass fraction] 97 % Anuj Quinn MD Work Phone: [employer] Work Phone: 11-20-2020 21:07-0400 Systolic blood pressure 113 mm[Hg] Anuj Quinn MD Work Phone: [employer] Work Phone: 11-07-2020 16:28-0400 Body height 160 cm Nicholas Roger MD Work Phone: [employer] Work Phone: 11-07-2020 16:28-0400 Body mass index (BMI) [Ratio] 38.26 kg/m2 Nicholas Roger MD Work Phone: [employer] Work Phone: 11-07-2020 16:28-0400 Body temperature 98.8 [degF] Nicholas Roger MD Work Phone: [employer] Work Phone: 11-07-2020 16:28-0400 Body weight 97.98 kg Nicholas Roger MD Work Phone: [employer] Work Phone: 11-07-2020 16:28-0400 Diastolic blood pressure 71 mm[Hg] Nicholas Roger MD Work Phone: [employer] Work Phone: 11-07-2020 16:28-0400 Heart rate 98 /min Nicholas Roger MD Work Phone: [employer] Work Phone: 11-07-2020 16:28-0400 Respiratory rate 18 /min Nicholas Roger MD Work Phone: [employer] Work Phone: 11-07-2020 16:28-0400 SaO2% (BldA) [Mass fraction] 94 % Nicholas Roger MD Work Phone: [employer] Work Phone: 11-07-2020 16:28-0400 Systolic blood pressure 120 mm[Hg] Nicholas Roger MD Work Phone: [employer] Work Phone: 07-09-2020 10:52-0400 Body height 160 cm Zelda Bautista CNP Work Phone: [facility] 07-09-2020 10:52-0400 Body mass index (BMI) [Ratio] 41.27 kg/m2 Zelda Bautista CNP Work Phone: [facility] 07-09-2020 10:52-0400 Body weight 105.69 kg Zelda Bautista CNP Work Phone: [facility] 07-09-2020 10:52-0400 Diastolic blood pressure 70 mm[Hg] Zelda Bautista CNP Work Phone: [facility] 07-09-2020 10:52-0400 Heart rate 97 /min Zelda Bautista CNP Work Phone: [facility] 07-09-2020 10:52-0400 Systolic blood pressure 101 mm[Hg] Zelda Bautista CNP Work Phone: [facility] 06-24-2020 09:48-0400 Body mass index (BMI) [Ratio] 40.92 kg/m2 Anuj Quinn MD Work Phone: [employer] Work Phone: 06-24-2020 09:48-0400 Body temperature 97.9 [degF] Anuj Quinn MD Work Phone: [employer] Work Phone: 06-24-2020 09:48-0400 Body weight 104.78 kg Anuj Quinn MD Work Phone: [employer] Work Phone: 06-24-2020 09:48-0400 Diastolic blood pressure 64 mm[Hg] Anuj Quinn MD Work Phone: [employer] Work Phone: 06-24-2020 09:48-0400 Heart rate 120 /min Anuj Quinn MD Work Phone: [employer] Work Phone: 06-24-2020 09:48-0400 Respiratory rate 18 /min Anuj Quinn MD Work Phone: [employer] Work Phone: 06-24-2020 09:48-0400 SaO2% (BldA) [Mass fraction] 100 % Anuj Quinn MD Work Phone: [employer] Work Phone: 06-24-2020 09:48-0400 Systolic blood pressure 115 mm[Hg] Anuj Quinn MD Work Phone: [employer] Work Phone: 06-09-2020 10:44-0400 Body height 160 cm Lelo Gallegos MD Work Phone: [facility] 06-09-2020 10:44-0400 Body mass index (BMI) [Ratio] 41.27 kg/m2 Lelo Gallegos MD Work Phone: [facility] 06-09-2020 10:44-0400 Body weight 105.69 kg Lelo Gallegos MD Work Phone: [facility] 06-09-2020 10:44-0400 Diastolic blood pressure 75 mm[Hg] Lelo Gallegos MD Work Phone: [facility] 06-09-2020 10:44-0400 Heart rate 116 /min Lelo Gallegos MD Work Phone: [facility] 06-09-2020 10:44-0400 Systolic blood pressure 110 mm[Hg] Lelo Gallegos MD Work Phone: [facility] 03-26-2020 22:17-0500 Pulse (Heart Rate) 98 /min Brie Moreno [facility]ocket [facility], [place] 03-26-2020 21:43-0500 BP Diastolic 66 mm[Hg] [facility]rie [facility] [place] 03-26-2020 21:43-0500 BP Systolic 99 mm[Hg] [facility] [place] 03-26-2020 21:43-0500 Pulse Oximetry 95 % [facility] [place] 03-26-2020 20:50-0500 Respiratory Rate 16 /min [facility] [place] 03-26-2020 20:13-0500 BMI (Body Mass Index) 40.14 kg/m2 [facility] [place] 03-26-2020 20:13-0500 Body Temperature 98.2 [degF] [facility] [place] 03-26-2020 20:13-0500 Body weight 102.78 kg Brie Jorgensen [facility] , [place] 02-15-2020 18:22-0500 BMI (Body Mass Index) 39.75 kg/m2 Brie PhanFiksu [facility], [place] 02-15-2020 18:22-0500 Body Temperature 98.6 [degF] [facility] [place] 02-15-2020 18:22-0500 Body weight 101.79 kg Brie Jorgensen [facility] , [place] 02-15-2020 18:22-0500 BP Diastolic 78 mm[Hg] [facility] [place] 02-15-2020 18:22-0500 BP Systolic 127 mm[Hg] [facility]rie [facility] [place] 02-15-2020 18:22-0500 Height 160 cm Brie Moreno [facility] , [place] 02-15-2020 18:22-0500 Pulse (Heart Rate) 92 /min Brie Josh [facility], [place] 02-15-2020 18:22-0500 Pulse Oximetry 99 % Brie Moreno [facility] , [place] 02-15-2020 18:22-0500 Respiratory Rate 20 /min Brie Moreno [facility], [place] 11-20-2019 18:48-0400 BP Diastolic 75 mm[Hg] [facility], [place] 11-20-2019 18:48-0400 BP Systolic 128 mm[Hg] [facility], [place] 11-20-2019 18:48-0400 Pulse (Heart Rate) 83 /min [facility] [place] 11-20-2019 18:48-0400 Pulse Oximetry 97 % [facility], [place] 11-20-2019 18:48-0400 Respiratory Rate 18 /min [facility], [place] 11-20-2019 17:00-0400 BMI (Body Mass Index) 36.31 kg/m2 [facility], [place] 11-20-2019 17:00-0400 Body Temperature 98.4 [degF] [facility], [place] 11-20-2019 17:00-0400 Body weight 92.99 kg [facility], [place] 11-03-2019 11:37-0400 BMI (Body Mass Index) 34.47 kg/m2 [facility], [place] 11-03-2019 11:37-0400 Body Temperature 98.71 [degF] [facility], [place] 11-03-2019 11:37-0400 Body weight 88.27 kg [facility], [place] 11-03-2019 11:37-0400 BP Diastolic 66 mm[Hg] [facility], [place] 11-03-2019 11:37-0400 BP Systolic 117 mm[Hg] [facility], [place] 11-03-2019 11:37-0400 Height 160 cm Wayne [facility], [place] 11-03-2019 11:37-0400 Pulse (Heart Rate) 87 /min [place] 11-03-2019 11:37-0400 Pulse Oximetry 99 % [place] 11-03-2019 11:37-0400 Respiratory Rate 20 /min Wayne [place], [place] 08-13-2019 19:42-0400 BMI (Body Mass Index) 31 kg/m2 [facility] 08-13-2019 19:42-0400 Body Temperature 98.6 [degF] [facility] 08-13-2019 19:42-0400 Body weight 79.38 kg [facility] 08-13-2019 19:42-0400 Height 160 cm [facility] 08-13-2019 19:40-0400 BP Diastolic 60 mm[Hg] [facility] 08-13-2019 19:40-0400 BP Systolic 156 mm[Hg] [facility] 08-13-2019 19:40-0400 Pulse (Heart Rate) 138 /min [facility] 08-13-2019 19:40-0400 Pulse Oximetry 98 % [facility] 08-13-2019 19:40-0400 Respiratory Rate 16 /min [facility] 06-17-2019 12:45-0400 Respiratory Rate 18 /min [facility] 06-17-2019 07:54-0400 Body Temperature 97.81 [degF] [facility] 06-17-2019 07:54-0400 BP Diastolic 66 mm[Hg] [facility] 06-17-2019 07:54-0400 BP Systolic 99 mm[Hg] [facility] 06-17-2019 07:54-0400 Pulse (Heart Rate) 82 /min [facility] 06-17-2019 07:54-0400 Pulse Oximetry 94 % [facility] 06-14-2019 08:15-0400 BMI (Body Mass Index) 32.92 kg/m2 [facility] 06-14-2019 08:15-0400 Body weight 81.65 kg [facility] 06-14-2019 08:15-0400 Height 157.5 cm [facility] 06-14-2019 04:20-0400 Pulse (Heart Rate) 83 /min [facility] [place] 06-14-2019 04:05-0400 BP Diastolic 58 mm[Hg] [facility]rie [facility] [place] [facility] [place] 06-14-2019 04:05-0400 BP Systolic 95 mm[Hg] [facility] [place] [facility] [place] 06-14-2019 04:05-0400 Pulse Oximetry 95 % [facility] [place] [facility] [place] 06-14-2019 01:12-0400 Respiratory Rate 18 /min [facility] [place] 06-14-2019 00:10-0400 Body Temperature 100.51 [degF] [facility] [place] 06-13-2019 22:00-0400 BMI (Body Mass Index) 32.31 kg/m2 [facility] [place] 06-13-2019 22:00-0400 Body weight 82.74 kg [facility] [place] [facility] [place] 06-13-2019 22:00-0400 Height 160 cm [facility] [place] [facility] [place] 04-28-2019 19:58-0500 Body Temperature 98.8 [degF] [facility] [place] 04-28-2019 19:58-0500 BP Diastolic 70 mm[Hg] [facility] [place] [facility] [place] 04-28-2019 19:58-0500 BP Systolic 98 mm[Hg] [facility] [place] [facility] [place] 04-28-2019 19:58-0500 Pulse (Heart Rate) 119 /min [facility] [place] 04-28-2019 19:58-0500 Pulse Oximetry 100 % Roslyn PhanFiksu [facility] [place] , [place] 04-28-2019 19:58-0500 Respiratory Rate 30 /min [facility] [place] [facility] [place] 04-28-2019 19:54-0500 BMI (Body Mass Index) 30.65 kg/m2 [facility] [place] 04-28-2019 19:54-0500 Body weight 78.47 kg [facility] [place] [facility] [place] 04-28-2019 19:54-0500 Height 160 cm Roslyn Keating [place], [place] Encounters Encounter Date Encounter Type Care Provider Facility Start: 11-23-2023 End: 11-23-2023 ambulatory MARK ELIANA Not Available Start: 11-09-2023 End: 11-09-2023 ambulatory MARK ELIANA Not Available Start: 10-26-2023 End: 10-26-2023 ambulatory MARK ELIANA Not Available Start: 10-05-2023 End: 10-05-2023 ambulatory VIOLET Ramos [facility] Start: 10-05-2023 End: 10-05-2023 Subsequent hospital visit by physician Violet Juarez MD Work Phone: [id number] Start: 10-05-2023 End: 10-05-2023 Emergency department patient visit CALEDONIA Richard [facility] Start: 10-05-2023 End: 10-05-2023 Emergency department patient visit LINDA LANDRYE [facility] Start: 09-12-2023 End: 09-12-2023 ambulatory MARK ELIANA Not Available Start: 08-16-2023 End: 08-16-2023 ambulatory MARK ELIANA Not Available Start: 07-26-2023 End: 07-26-2023 ambulatory BLAKE KAUFFMAN [facility] Start: 07-19-2023 End: 07-19-2023 ambulatory MARK ELIANA Not Available Start: 06-21-2023 End: 06-21-2023 ambulatory MARK ELIANA Not Available Start: 05-20-2023 End: 05-20-2023 ambulatory MARK ELIANA Not Available Start: 05-13-2023 End: 05-13-2023 Emergency department patient visit Jonathan Michelle Facility:[facility] Start: 05-13-2023 End: 05-13-2023 Emergency department patient visit Jonathan Martinez [facility] Start: 05-11-2023 End: 05-12-2023 Emergency department patient visit Zac Fields Facility:[facility] Start: 05-11-2023 End: 05-11-2023 Emergency department patient visit Zac Herreraailin [facility] Start: 05-10-2023 End: 05-10-2023 Emergency department patient visit LINDA SHEPPARD [facility] Start: 05-10-2023 End: 05-10-2023 Emergency department patient visit Chet Berumen DO Work Phone: [facility] Comment on above: Toothache (Primary D x); Dental decay Start: 12-27-2022 End: 12-27-2022 ambulatory MARK SALCEDOZIO [facility] Start: 11-23-2022 End: 11-23-2022 ambulatory MARK SALCEDOZIO [facility] Start: 09-04-2022 End: 09-04-2022 Emergency department patient visit Erin Lacy MD Work Phone: [facility] Comment on above: Sprain of right ankl e, unspecified ligament, initial encounter (Primary Dx) Start: 06-29-2022 End: 06-30-[address] MARK DUMONT . Facility: Start: 06-29-2022 End: 06-30-2022 ambulatory Linda Sheppard Facility:[facility] Start: 06-29-2022 End: 06-29-2022 Pain Management Todd Smart [facility] Start: 06-14-2022 End: 06-14-[address] MARK DUMONT . Facility: Start: 05-19-2022 End: 05-19-2022 Emergency department patient visit Erin Lacy MD Work Phone: [facility] Comment on above: Dry socket (Primary Dx) Start: 05-11-2022 End: 05-11-2022 Emergency department patient visit Anuj Quinn MD Work Phone: [facility] Comment on above: Masseter muscle spas m (Primary Dx); Other acute postprocedural pain Start: 03-30-[address] MARK DUMONT . Facili ty:[facility] Start: 03-29-2022 End: 03-29-2022 Subsequent hospital visit by physician [facility] Start: 10-12-2021 End: 10-12-2021 Emergency department patient visit Rishabh Mancini MD Work Phone: [facility] Comment on above: Acute bronchitis, un specified organism (Primary Dx) Start: 07-22-2021 End: 07-22-2021 Emergency department patient visit Clark Moser MD Work Phone: [facility] Comment on above: Acute pharyngitis, u nspecified etiology (Primary Dx) Start: 07-07-2021 ambulatory BRIE GAGE ABELINO [facility] Ambulatory Start: 06-18-2021 ambulatory [facility] Ambulatory Start: 06-17-2021 End: 06-18-2021 ambulatory [facility] Start: 05-15-2021 End: 05-19-2021 ambulatory [facility] Start: 05-15-2021 End: 05-15-2021 Nutrition therapy Farhat Vang MD Work Phone: [facility] Comment on above: Morbid obesity with body mass index (BMI) of 40.0 or higher (HCC) Start: 05-14-2021 End: 05-18-2021 ambulatory [facility] Start: 05-14-2021 End: 05-14-2021 Office outpatient visit 15 minutes Farhat Vang MD Work Phone: [facility] Comment on above: [...] Farhat Vang MD Work Phone: [facility] Comment on above: Encounter for genera l adult medical examination with abnormal findings (Primary Dx); Anxiety and depression; History of opioid abuse (HCC); Morbid obesity with body mass index (BMI) of 40.0 or higher (HCC) Start: 04-16-2021 End: 04-16-2021 Patient encounter status Farhat Vang MD Work Phone: [facility] Start: 03-23-2021 End: 03-23-2021 Emergency department patient visit Anuj Quinn MD Work Phone: [facility] Comment on above: COVID-19 (Primary Dx ); Omphalitis in adult Start: 02-16-2021 End: 02-20-2021 ambulatory [facility] Start: 02-12-2021 End: 02-16-2021 ambulatory PHYSICIAN [facility] Start: 02-10-2021 End: 02-14-2021 ambulatory [facility] Start: 02-02-2021 End: 02-06-2021 ambulatory PHYSICIAN [facility] Start: 01-15-2021 Documentation procedure Jeimy goodman [facility] Start: 01-15-2021 End: 01-15-2021 ambulatory HOLLAND WHIPPLE SETH [facility] Ambulatory Start: 01-15-2021 End: 01-15-2021 Office outpatient new 30 minutes Holland Ann MD Work Phone: [facility] Comment on above: Hemorrhoids, unspeci fied hemorrhoid type Start: 12-29-2020 End: 01-02-2021 ambulatory PHYSICIAN [facility] Start: 12-27-2020 End: 12-27-2020 Emergency department patient visit Wayne Springer MD Work Phone: [facility] Comment on above: Viral syndrome (Prim prakash Dx) Start: 11-20-2020 End: 11-20-2020 Emergency department patient visit Anuj Quinn MD Work Phone: [facility] Comment on above: Strain of rhomboid m uscle, initial encounter; Chest wall muscle strain, initial encounter Start: 11-07-2020 End: 11-07-2020 Emergency department patient visit Nicholas Roger MD Work Phone: [facility] Comment on above: Viral URI (Primary D x) Start: 08-28-2020 End: 08-30-2020 Evaluation and management of inpatient [facility] Start: 08-25-2020 End: 08-25-2020 ambulatory PHYSICIAN [facility] Start: 07-29-2020 End: 08-02-2020 ambulatory PHYSICIAN [facility] Start: 07-22-2020 End: 07-26-2020 ambulatory [facility] Start: 07-22-2020 End: 07-22-2020 Telemedicine consultation with patient Lelo Gallegos MD Work Phone: [facility] Comment on above: Diet controlled gest ational diabetes mellitus (GDM) in third trimester Start: 07-10-2020 ambulatory LELO ADAMS [facility] Ambulatory Start: 07-09-2020 End: 07-09-2020 ambulatory ZEDLA BAUTISTA [facility] Ambulato ry Start: 07-09-2020 End: 07-09-2020 Office outpatient visit 15 minutes Zelda Bautista PRODUCTION DIRECTOR Work Phone: [facility] Endocrinology Physicians Comment on above: Diet controlled gest ational diabetes mellitus (GDM) in third trimester (Primary Dx) Start: 06-24-2020 End: 06-24-2020 Emergency department patient visit Anuj Quinn MD Work Phone: [facility] Comment on above: Acute frontal sinusi tis, recurrence not specified (Primary Dx) Start: 06-10-2020 End: 06-10-2020 Nutrition therapy Lelo Gallegos Work Phone: [facility] Comment on above: Diet controlled gest ational diabetes mellitus (GDM) in second trimester Start: 06-09-2020 End: 06-09-2020 Office outpatient new 30 minutes Roslyn Stevenson MD Work Phone: [facility]ocrinology [facility] Comment on above: Diet controlled gest ational diabetes mellitus (GDM) in second trimester Start: 05-27-2020 End: 05-31-2020 ambulatory PHYSICIAN [facility] Start: 05-21-2020 End: 05-25-2020 ambulatory PHYSICIAN [facility] Start: 03-26-2020 End: 03-26-2020 Emergency department patient visit Brie Moreno Work Phone: [facility] Comment on above: Atypical pneumonia ( Primary Dx) Start: 02-15-2020 End: 02-15-2020 Emergency department patient visit Brie Moreno Work Phone: [facility] Comment on above: Pain, dental (Primar y Dx); Acute gingivitis; Alveolar osteitis Start: 11-20-2019 End: 11-20-2019 Emergency department patient visit Anuj Quinn Work Phone: [facility] Comment on above: Bacterial vaginosis (Primary Dx); Trichimoniasis; Furuncle of left axilla Start: 11-03-2019 End: 11-03-2019 Emergency department patient visit Wayne Maryuri Springer Work Phone: [facility] Comment on above: Poison arabella (Primary Dx) Start: 08-20-2019 End: 08-21-2019 Patient encounter procedure HODA MADERA [facility] Start: 08-20-2019 End: 08-20-2019 Subsequent hospital visit by physician [facility] Start: 08-13-2019 End: 08-13-2019 Emergency department patient visit Christian Martinez Work Phone: [facility] Emergency Department Comment on above: Heroin abuse (HCC) ( Primary Dx) Start: 06-20-2019 End: 06-20-2019 Patient encounter procedure Alsia Palencia Work Phone: [facility] Comment on above: Hepatitis C virus in fection without hepatic coma, unspecified chronicity (Primary Dx) Start: 06-18-2019 End: 06-18-2019 Documentation procedure Taryn Torres [facility] Start: 06-18-2019 Follow-up encounter Taryn Cartagena [facility] Comment on above: Transition Of Care Start: 06-18-2019 End: 06-18-2019 Patient encounter procedure Taryn Stokes Torres [facility] Start: 06-14-2019 End: 06-17-2019 Evaluation and management of inpatient [facility] Work Phone: [facility] Comment on above: Elevated LFTs; IVDA (intravenous drug abuse) complicating (HCC) Start: 06-13-2019 End: 06-14-2019 Emergency department patient visit Brie Benjamin Josh Work Phone: [facility] Comment on above: Abdominal pain, unsp ecified abdominal location (Primary Dx); Urinary tract infection with hematuria, site unspecified; Viral hepatitis without hepatic coma, unspecified chronicity, unspecified viral hepatitis type; Polysubstance abuse (HCC); Hyperbilirubinemia Start: 04-28-2019 End: 04-28-2019 Emergency department patient visit Roslyn Keating Work Phone: [facility] Comment on above: Accidental overdose of heroin, initial encounter (HCC) (Primary Dx) Start: 12-20-2016 End: 01-02-2020 Cancer cervix - screening done Lelo Gallegos MD Work Phone: [facility] Start: 12-20-2016 End: 01-02-2020 Encounter for gynecological examination (general) (routine) without abnormal findings Jeimy Tan PRODUCT SAFETY MANAGER [facility] Procedures Date Procedure Procedure Detail Performing [...] [Mass/ volume] in Serum or Plasma Indra Castro Edmond Work Phone: Start: 06-14-2019 Bilirubin.direct [...] of 2) Shingles Vaccine (1 of 2) [facility]- [place], [place] Start: 12-29-2025 Screening for malignant neoplasm of cervix Pap Smear [facility] Start: 10-31-2024 Screening for malignant neoplasm of cervix Pap Smear [facility] Start: 12-30-2023 Screening for malignant neoplasm of cervix [facility] Start: 09-06-2024 Respiratory Syncytial Virus (RSV) or age 60 yrs+ (1 - Risk 1-dose series) Respiratory Syncytial Virus (RSV) or age 60 yrs+ (1 - Risk 1-dose series) [facility] Start: 11-10-2023 End: 11-10-2023 Patient encounter procedure 11/10/2023 10:[address] [facility] [address] [place] [address] [facility] Start: 10-27-2023 End: 10-27-2023 Patient encounter procedure 10/27/2023 10:00 AM EDT Routine [facility] [address] [place] [address] [facility] Start: 10-13-2023 End: 10-13-2023 Patient encounter procedure 10/13/2023 10:00 AM EDT Routine [facility] [address] [place] [address] Return in about 2 weeks (around 10/04/2023) for twins, dopplers, growth, transvag. [facility] Comment on above: Return in about 2 weeks (around ) for twins, dopplers, growth, transvag. Start: 10-07-2023 Tdap Vaccine during Tdap Vaccine during [facility] Start: 10-06-2023 Influenza vaccination Flu vaccine (#1) [facility] Start: 10-31-2022 Screening for malignant neoplasm of cervix [facility] Work Phone: Start: 10-05-2022 Influenza vaccination Flu vaccine (#1) [facility] Start: 04-16-2022 History and physical examination, annual for health maintenance Wellness Visit [facility] Start: 02-13-2022 Depression Remission Assessment (PHQ9) Depression Remission Assessment (PHQ9) [facility] Start: 12-29-2021 History and physical examination, annual for health maintenance Wellness Visit [facility] Start: 11-12-2021 End: 11-12-2021 Patient encounter procedure 11/12/2021 Office Visit Primary Care Farhat Vang MD [address] [place] [address] [facility] Start: 11-05-2021 Influenza vaccination [facility] Start: 10-05-2021 Influenza vaccination Flu vaccine (#1) [facility] [facility] Start: 06-26-2021 End: 06-26-2021 Nutrition therapy 06/26/2021 Nutrition Nutrition Farhat Vang MD [address] [place] [address] [address] [facility] Nutritional Services Start: 05-15-2021 End: 05-15-2021 Nutrition therapy 05/15/2021 Nutrition Nutrition Angelito Harvey RD [facility] Nutritional Services Start: 05-14-2021 End: 05-14-2021 Patient encounter procedure 05/14/2021 Office Visit Primary Care Farhat Vang MD [address] [place] [address] [facility] Primary Care Physicians Start: 03-17-2021 Depression screening using PHQ-9 (Patient Health Questionnaire 9) score Depression Screening (PHQ9) [facility] Start: 01-15-2021 Depression Remission Assessment (PHQ9) Depression Remission Assessment (PHQ9) [facility] Start: 01-09-2021 Hemoglobin A1c measurement A1C [facility] Start: 12-09-2020 HbA1c (Bld) [Mass fraction] A1C [facility] Start: 12-09-2020 Hemoglobin A1c measurement A1C [facility] Start: 11-05-2020 Influenza vaccination [facility] Start: 10-31-2020 History and physical examination, annual for health maintenance Wellness Visit [facility] Start: 08-28-2020 End: 08-28-2020 Admission to same day surgery center 08/28/2020 Surgery Obstetrics Roslyn Stevenson MD [facility] [address] [place] [address] [phone] SECTION [facility] Labor & Delivery Comment on above: SECTION Start: 08-28-2020 Subsequent hospital visit by physician 08/28/2020 Hospital Encounter Obstetrics Roslyn Stevenson MD [facility] Bla[address] Young [facility] [place] [address] [phone] [facility] Labor & Delivery Start: 08-25-2020 End: 08-25-2020 Office Visit 08/25/2020 Office Visit Endocrinology Zelda Bautista, PRODUCTION DIRECTOR [address] [place] [address] [phone] [facility] Endocrinology Physicians Start: 07-31-2020 End: 07-31-2020 Office Visit 07/31/2020 Office Visit Endocrinology Benito Krueger CNP [address] [place] [address] [phone] [facility] Endocrinology Physicians Start: 07-29-2020 End: 07-29-2020 Patient encounter procedure 07/29/2020 Routine Obstetrics and Gynecology Regla Dias CNM [address] [place] [phone] [facility] - An [facility] Start: 07-22-2020 End: 07-22-2020 Telemedicine consultation with patient 07/22/2020 Telemedicine Nutrition Lelo Gallegos MD [address] [place] [address] [phone] [facility] Nutritional Services Start: 07-17-2020 End: 07-17-2020 Patient encounter procedure 07/17/2020 Routine Obstetrics and Gynecology Yvonne Santos MD [address] [place] [phone] [facility] - [facility] Start: 07-09-2020 End: 07-09-2020 Office Visit 07/09/2020 Office Visit Endocrinology Zelda Bautista, PRODUCTION DIRECTOR [address] [place] [address] [phone] [facility] Endocrinology Physicians Start: 07-04-2020 End: 07-04-2020 Patient encounter procedure 07/04/2020 Routine Obstetrics and Gynecology Radha Pantoja MD [address] [place] [phone] [facility] Start: 06-26-2020 End: 06-26-2020 Patient encounter procedure 06/26/2020 Office Visit Endocrinology Janie Chen PA-C [address] [place] [address] [phone] [facility] Endocrinology Physicians Start: 06-24-2020 End: 06-24-2020 Nutrition [facility] Nutritional Services Start: 06-19-2020 End: 06-19-2020 Routine 06/19/2020 Routine Obstetrics and Gynecology Larissa, Regla Arriaga CNM [address] [place] [phone] [facility] - [facility] Start: 05-17-2020 Depression screening using PHQ-9 (Patient Health Questionnaire 9) score Depression Screening (PHQ9) [facility] Start: 2020 Screening for malignant neoplasm of cervix [facility] Start: 02-26-2020 End: 02-26-2020 Initial 02/26/2020 Initial Obstetrics and Gynecology Jai Huerta MD [address] [place], [place] [phone] [facility] SHEAR HELPER Start: 11-06-2019 Influenza vaccination [facility] [place] Start: 11-06-2019 Influenza vaccination given [facility] Start: 08-06-2019 Screening for malignant neoplasm of cervix Pap Smear [facility] Start: 06-20-2019 End: 06-20-2019 Office Visit 06/20/2019 Office Visit Transition of Care Alisa Palencia, PRODUCTION DIRECTOR [address] [facility] [address] [place] [address] [phone] [facility] Start: 11-05-2018 Influenza vaccination Flu vaccine (#1) [place], [place] Start: 11-05-2018 Influenza vaccination given Sequential Influenza Vaccine (#1) [facility] Start: 03-21-2015 Cervical cancer screen Cervical cancer screen [place], [place] Start: 03-21-2015 Screening for malignant neoplasm of cervix Cervical cancer screen [place] Start: 04-05-2014 Screening for malignant neoplasm of cervix Pap smear [facility] Start: 2009 DTaP/Tdap/Td vaccine (1 - Tdap) DTaP/Tdap/Td vaccine (1 - Tdap) [place] Start: 2009 Hepatitis B vaccine (1 of 3 - Risk 3-dose series) Hepatitis B vaccine (1 of 3 - Risk 3-dose series) [facility] Work Phone: Start: 2008 Hepatitis C screening Hepatitis C screen [facility] Start: 2006 COVID-19 Vaccine (1) COVID-19 Vaccine (1) [facility] Start: 2005 HIV screen HIV screen [place], [place] Start: 2005 HIV screening HIV screen [facility] Start: 2002 COVID-19 Vaccine (1) COVID-19 Vaccine (1) [facility] Start: 2002 Depression Monitoring Depression Monitoring [facility] Start: 2001 DTaP/Tdap/Td vaccine (1 - Tdap) DTaP/Tdap/Td vaccine (1 - Tdap) [place] Start: 2001 DTaP/Tdap/Td vaccine (5 - Tdap) DTaP/Tdap/Td vaccine (5 - Tdap) [facility] Start: 2000 Albumin DL <= 20 mg/L (U) [Mass/Vol] Urine Microalbumin [facility] Start: 2000 Diabetic foot examination Foot Exam [facility] Start: 2000 Microalbumin measurement, urine, quantitative Urine Microalbumin [facility] Start: 2000 Ophthalmic examination and evaluation Ophthalmology Exam [facility] Start: 1996 Pneumococcal 0-64 years Vaccine (1 of 1 - PPSV23) Pneumococcal 0-64 years Vaccine (1 of 1 - PPSV23) [place] Start: 1996 Pneumococcal Vaccine: Ped or At-Risk (1 of 2 - PPSV23) Pneumococcal Vaccine: Ped or At-Risk (1 of 2 - PPSV23) [facility] Start: 1995 COVID-19 Vaccine (1) COVID-19 Vaccine (1) [facility] Start: 1993 History and physical examination, annual for health maintenance Wellness Visit [facility] Start: 1991 Varicella vaccine (1 of 2 - 2-dose childhood series) Varicella vaccine (1 of 2 - 2-dose childhood series) [facility] Start: 1990 COVID-19 Vaccine (#1) COVID-19 Vaccine (#1) [facility] Start: 1990 Hepatitis B vaccine (1 of 3 - 3-dose series) Hepatitis B vaccine (1 of 3 - 3-dose series) [facility] Start: 1990 Hepatitis C screening Hepatitis C screen [facility] Start: 1990 Tetanus vaccination Tetanus: Every 10yrs [facility] Anti smooth muscle antibody IgA level Anti-Smooth Muscle Antibody Lab Add-On 06/15/2019 1:50 PM EDT [facility] Antimitochondrial antibody titer Antimitochondrial Antibody Lab Add-On 06/15/2019 1:50 PM EDT [facility] End: 11-20-2019 C.trachomatis N.gonorrhoeae DNA, Urine C.trachomatis N.gonorrhoeae DNA, Urine Microbiology STAT One Time for 1 Occurrences starting 11/20/2019 until 11/20/2019 [place] Comment on above: One Time for 1 Occurrences starting 11/05 until 11/20/2019 C.trachomatis N.gonorrhoeae DNA, Urine C.trachomatis N.gonorrhoeae DNA, Urine Microbiology Stat [employer] Label print 11/20/2019 5:55 PM EDT [place] End: 03-26-2020 Covid-19 Ambulatory Covid-19 Ambulatory Lab Routine Once for 1 Occurrences starting 03/26/2020 until 03/26/2020 [facility] [place] Comment on above: Once for 1 Occurrences starting 03/26/19 21 until 03/26/2020 Covid-19 Ambulatory Covid-19 Amb ulatory Lab Routine 03/26/2020 8:44 PM EST [facility] End: 06-13-2019 Culture, Blood 1 Culture, Blood 1 Microbiology STAT One Time for 1 Occurrences starting 06/13/2019 until 06/13/2019 [place] Comment on above: One Time for 1 Occurrences starting 10/2019 until 06/13/2019 Culture, Blood 1 [place] End: 03-23-2021 Culture, Wound [facility] Work Phone: Comment on above: One Time for 1 Occurrences starting 03/07 until 03/23/2021 Cytomegalovirus DNA assay CMV DN A Detection and Quant, Blood Lab Routine 06/15/2019 1:50 PM EDT [facility] Kirsten-Hazel Virus P CR, Quantitative Kirsten-Hazel Virus PCR, Quantitative Lab Routine 06/15/2019 1:50 PM EDT [facility] End: 04-16-2022 Hemoglobin A1c/Hemoglobin.total in Blood Hemoglobin A1c Lab Routine Encounter for general adult medical examination with abnormal findings 1 Occurrences starting 04/16/2021 until 04/16/2022 [facility] Work Phone: Comment on above: 1 Occurrences starting 04/16/2021 until 04/16/2022 Hemoglobin A1c/Hemoglobin.total in Blood Hemoglobin A1c Lab Routine Encounter for general adult medical examination with abnormal findings 04/16/2021 10:58 AM [facility] End: 04-16-2022 Hepatitis C antibody measurement Hepatitis C Antibody Lab Routine Encounter for general adult medical examination with abnormal findings 1 Occurrences starting 04/16/2021 until 04/16/2022 [facility] Comment on above: 1 Occurrences starting 04/16/2021 until 04/16/2022 Hepatitis C antibody measurement Hepatitis C Antibody Lab Routine Encounter for general adult medical examination with abnormal findings 04/16/2021 10:58 AM [facility] MDI Treatment MDI Treatment Re spiratory Care Routine Every 6hr As Needed until discontinued starting 03/26/2020 [place] Comment on above: Every 6hr As Needed until discontinued s tarting 03/26/2020 Nonrebreather mask oxygen Nonreb reather mask oxygen Respiratory Care Routine As Needed until discontinued starting 10/05/2023 ALEXANDRA PANIAGUA [facility] Comment on above: As Needed until discontinued starting Nuclear Ab IF (S) [Titer] KENIA La b Add-On 06/15/2019 1:50 PM EDT [facility] End: 06-24-2020 Urinalysis, reflex to microscopic Urinalysis, reflex to microscopic Lab STAT One Time for 1 Occurrences starting 06/24/2020 until 06/24/2020 [employer] Work Phone: Comment on above: One Time for 1 Occurrences starting 06/06 until 06/24/2020 End: 05-14-2022 XR Lumbar Spine Complete AP/Lat w Obls XR Lumbar Spine Complete AP/Lat w Obls Imaging Routine Chronic bilateral low back pain without sciatica 1 Occurrences starting 05/14/2021 until 05/14/2022 [employer] Work Phone: Comment on above: 1 Occurrences starting 05/14/2021 until 05/14/2022 Payers Date Payer Category Payer Medicaid [employer] [id number] 2021-Present [phone] [address] [place] [address] [id number]. 7.3.263829.315 2021 Unknown [id number] 1.2.840.912486.1.13.239.2. 7.3.021406.315 2017 Medicaid [id number] 1.2.840.363722.1.13.385.2. 7.3.226165.315 2012 Medicaid [id number] 1.2.840.135135.1.13.239.2. 7.3.332218.315 2012 Medicaid [id number] 2008 Private Health Insurance [id number] 1990 Unknown [id number] 2.16.840.1.382336.3.579.2. 173 1990 Unknown [id number] 2.16.840.1.720720.3.579.2. 900 1990 Unknown [id number] 2.16.840.1.683855.3.579.2. 900 1990 Unknown [id number] 2.16.840.1.991465.3.579.2. 900 1990 Unknown [id number] 2.16.840.1.450997.3.579.2. 900 1990 Unknown [id number] 2.16.840.1.556927.3.579.2. 900 1990 Unknown [id number] 2.16.840.1.727806.3.579.2. 900 1990 Unknown [id number] 2.16.840.1.579548.3.579.2. 900 1990 Unknown [id number] 2.16.840.1.850566.3.579.2. 903 1990 Unknown [id number] 2.16.840.1.946084.3.579.2. 903 1990 Unknown [id number] 2.16.840.1.203454.3.579.2. 903 1990 Unknown [id number] 2.16.840.1.096212.3.579.2. 903 1990 Unknown [id number] 2.16.840.1.585868.3.579.2. 903 1990 Unknown [id number] 2.16.840.1.113081.3.579.2. 903 1990 Unknown [id number] 2.16.840.1.093658.3.579.2. 903 1990 Unknown [id number] 2.16.840.1.641178.3.579.2. 903 1990 Unknown [id number] 2.16.840.1.278015.3.579.2. 903 1990 Unknown [id number] 2.16.840.1.575694.3.579.2. 903 1990 Unknown [id number] 2.16.840.1.430860.3.579.2. 903 1990 Unknown [id number] 2.16.840.1.557850.3.579.2. 903 1990 Unknown [id number] 2.16.840.1.210798.3.579.2. 903 1990 Unknown [id number] 2.16.840.1.699743.3.579.2. 903 1990 Unknown [id number] 2.16.840.1.796935.3.579.2. 903 1990 Unknown [id number] 2.16.840.1.087540.3.579.2. 593 1990 Unknown [id number] 2.16.840.1.628070.3.579.2. 593 1990 Unknown [id number] 2.16.840.1.805433.3.579.2. 593 1990 Unknown [id number] 2.16.840.1.636110.3.579.2. 593 1990 Unknown [id number] 2.16.840.1.947917.3.579.2. 727 1990 Unknown [id number] 2.16.840.1.969575.3.579.2. 727 1990 Unknown [id number] 2.16.840.1.744539.3.579.2. 727 1990 Unknown [id number] 2.16.840.1.826786.3.579.2. 174 1990 Unknown [id number] 2.16.840.1.880692.3.579.2. 174 1990 Unknown [id number] 2.16.840.1.353520.3.579.2. 174 1990 Unknown [id number] 2.16.840.1.874434.3.579.2. 174 1990 Unknown [id number] 2.16.840.1.343601.3.579.2. 174 1990 Unknown [id number] 2.16.840.1.888684.3.579.2. 9 1990 Unknown [id number] 2.16.840.1.933774.3.579.2. 9 1990 Unknown [id number] 2.16.840.1.412078.3.579.2. 9 1990 Unknown [id number] 2.16.840.1.074765.3.579.2. 9 1990 Unknown [id number] 2.16.840.1.924459.3.579.2. 9 1990 Unknown [id number] 2.16.840.1.505094.3.579.2. 9 1990 Unknown [id number] 2.16.840.1.950505.3.579.2. 9 1990 Unknown [id number] 2.16.840.1.459930.3.579.2. 9 1990 Unknown [id number] 2.16.840.1.535977.3.579.2. 175 1990 Unknown [id number] 2.16.840.1.072832.3.579.2. 175 1990 Unknown [id number] 2.16.840.1.028849.3.579.2. 175 1959 Unknown [id number] Social History Date Type Detail Facility Start: 04-28-2019 End: 11-03-2019 Tobacco smoking status CAIS Current every day smoker [place], [place] End: 02-15-2020 History of tobacco use Cigarette Smoker [place] Start: 04-28-2019 End: 10-05-2023 Cigarettes smoked current (pack per day) - Reported [facility] [employer] Start: 04-28-2019 Alcohol intake Current drinke r of alcohol (finding) [facility] Start: 1990 Sex Assigned At Not on file [facility] Start: 06-13-2019 End: 10-05-2023 Alcohol intake Ex-drinker (finding) [facility] Exposure to SARS-CoV -2 (event) Unable to assess [facility] Start: 05-18-2019 End: 04-16-2021 History SDOH Alcohol Frequency 3 [facility] Start: 05-18-2019 End: 07-16-2020 History SDOH Alcohol Std Drinks 5 [facility] Start: 05-04-2021 End: 05-19-2022 Exposure to SARS-CoV-2 (event) Not sure [facility] Start: 11-20-2019 End: 07-26-2023 Tobacco use and exposure [facility] Start: 06-09-2020 End: 07-26-2023 Tobacco smoking status NHIS Former smoker [facility] End: 02-15-2020 History of tobacco use Current smoker [facility] Start: 12-09-2019 [facility] Start: 04-16-2021 History SDOH Social Connections Get Together 4 [facility] Start: 04-16-2021 History SDOH Food Worry 1 [facility] Start: 09-04-2022 End: 10-05-2023 Sex Assigned At Female [facility] Start: 09-04-2022 History SDOH Alcohol Frequency 2 [facility] How often to you hav e a drink containing alcohol? Monthly or less [facility] Average Number of Drinks Not on file [facility] How often to you hav e a drink containing alcohol? Never [facility] Medical Equipment Procedure Code Equipment Code Equipment Origin al Text Equipment Identifier Dates Use to check BG QID Dx O24.14 . [id number] Start: 06-09-2020 Use as instructe d to check BG QID Dx O24.14 . [id number] Start: 06-09-2020 End: 06-11-2020 use to test BLOO D SUGAR FOUR TIMES DAILY [id number] Start: 06-09-2020 Goals Date Patient Goal Desired Activity /State Functional Status Date Assessment Result Facility 05-13-2023 Functional Status N/A [facility] 05-11-2023 Functional Status N/A [facility] 06-29-2022 Functional Status N/A [facility] Clinical Notes 06-09-2020 to 05-13-2023 Note [...] Follow these instructions at home: Medicines Take rgyn-css-efsaask and prescription medicines only as told by [...] provider. Document Revised: 04/30/2021 Document Reviewed: 04/30/2021 [employer] Patient Education 2022 Physicians Formula. Follow Up Care 05/13/2023 11:20:07 With:[facility] Address: [address] [place], [place] [id number] [facility] (1) When:05/16/2023 12:45:32 Comments:Dentistry follow-up [facility] 05-12-2023 Hospital Discharg e instructions Patient Education 05/11/2023 23:33:09 Dental Pain, Oveb-as-Kmnr Dental Pain Dental pain is often a [...] Follow these instructions at home: Medicines Take iwxd-wau-kyklltz and prescription medicines only as told by [...] damage to the area. Brushing your teeth [place] your teeth twice a day using a [...] only when you eat or drink. Take yuwd-ijl-sgsxkzl and prescription medicines only as told by your dentist. Watch your dental pain for any changes. Let your dentist know if symptoms get worse. This information is not intended to replace advice given to you by your health care provider. Make sure you discuss any questions you have with your health care provider. Document Revised: 11/26/2020 Document Reviewed: 11/26/2020 [employer] Patient Education 2022 Physicians Formula. Follow Up Care 05/11/2023 21:26:40 With:Linda Sheppard DO Address: [address] [place] [address], [address] [address] When:05/14/2023 [facility] 05-11-2023 Evaluation + Plan note Extrac roxann from: Title:ED Note Author:Violet Walters PA-C ate:05/11/23 1. Pain, dental (K08.89: Oth er specified disorders of teeth and supporting structures) Ordered: amoxicillin-clavulanate, = 1 tab(s), Oral, q12hr, X 7 day(s), # 14 tab(s), Refills(s) 0, Pharmacy: [facility], 160, cm, 05/11/23 21:53:00 EST, Height/Length Dosing, 110, kg, 05/11/23 21:53:00 EST, Weight Dosing chlorhexidine topical, 0.018 gm, 15 mL, Oral, BID, 480 mL, Refill(s) 0, (swish and spit; do not swallow), [facility], 160, cm, 05/11/23 21:53:00 EST, Height/Length Dosing, 110, kg, 05/11/23 21:53:00 EST, Weight Dosing 2. Infected dental caries (K02.9: Dental caries, unspecified) Ordered: amoxicillin-clavulanate, = 1 tab(s), Oral, q12hr, X 7 day(s), # 14 tab(s), Refills(s) 0, Pharmacy: [facility], 160, cm, 05/11/23 21:53:00 EST, Height/Length Dosing, 110, kg, 05/11/23 21:53:00 EST, Weight Dosing chlorhexidine topical, 0.018 gm, 15 mL, Oral, BID, 480 mL, Refill(s) 0, (swish and spit; do not swallow), [facility], 160, cm, 05/11/23 21:53:00 EST, Height/Length Dosing, 110, kg, 05/11/23 21:53:00 EST, Weight Dosing 3. First trimester (Z34.91: Encounter for supervision of normal , unspecified, first trimester) Periapical abscess without sinus (K04.7: Periapical abscess without sinus) Orders: ketorolac, 30 mg = 1 mL, Injection, IntraMuscular, Once, Stop date 05/11/23 23:31:00 EST, STAT, Start date 05/11/23 23:31:00 EST, 05/11/23 23:31:00 EST [facility]03-05-2024 Hospital Discharge instructions* Discharge Instructions* Chet Berumen DO - 05/10/2023 11:50 AM EST Use amoxicillin as prescribed. Use Tylenol as needed for pain. Follow-up with dentist as soon as possible. * Attachments The following attachments cannot be sent through Care Everywhere. * Tooth Decay (Surinamese) * Tooth and Gum Pain (Surinamese) [facility] History of Present illness Narrative* Angelito [...] calorie goals/day. Estimated Nutritional Needs: Calorie Needs: 3774-4600 kcals/day (MSJ x 1.3AF -500-1000 to promote gradual weight loss) Patient/Family Education: Learner: family and patient Readiness: action - ready to set action plan and implement goals Barriers to Learning: none Method: explanation and handout Response: verbalizes understanding Expected Adherence: good Education Materials Provided: Healthy Meal Planning handout ([facility]), Goal Sheet, 1,001-Ssdpqjk3-Gkz Menus (NCM), 1,800-Calorie 5-Day Menus (NCM), Weight Loss Tips (NCM) Monitoring/Evaluation: Lab results, weight, food recall, meal planning, goal achievement, physical activity, medication management. This documentation has been sent to the referring healthcare provider. Angelito Harvey RDN, ZAHRA Personal Office documented in this [id number] History of Present illness Narrative* Farhat Vang [...] C hepatitis virus. Patient was referred to men's locker room attendant and the recommendation was made for a [...] improve, for Follow Up. documented in this [id number] History of Present illness Narrative* Farhat Vang [...] current medications that are prescribed by her automated logistics specialist. She has 4 children at home [...] Not difficult at all documented in this [id number] History of Present illness Narrative* Holland Ann [...] Report 12/29/2020 Final Value:Gynecologic Cytology Report Case: [id number] Authorizing Provider: Germania Valentino, Collected: 12/29/2020 11:09 AM PRODUCTION DIRECTOR Ordering Location: [facility] SHEAR HELPER - An Received: 12/30/2020 12:03 PM [facility] First Screen: Violet Craig Rescreen: Talya [...] from every slide are reviewed by a geospatial analyst. Specimen processing and Primary Screening performed at: [facility] - [address] [place] [id number] HPV Results 12/29/2020 Final Value:This result contains [...] physician. Holland Ann MD documented in this [id number] History of Present illness Narrative* Jeimy Tan LPN - 01/15/2021 11:17 AM EST This nurse acted as a supervisor baking for a rectal exam by Dr. Ann for Tia. Tia verbalized consent to be examined, appeared comfortable and tolerated the exam well. documented in this [id number] History of Present illness Narrative* Neris Ulloa, [...] no 2) I will try yoga on [employer] - yes but didn't feel comfortable doing [...] oatmeal packet. Snack celery + PB or Niuean yogurt or green peppers. Lunch - will be light if full from snack and may have an early dinner. Dinner - pork chops, steamed vegetables. Snack - Niuean yogurt or vegetables or watermelon. Beverages - [...] BLOOD SUGAR FOUR TIMES DAILY No current [facility]-ordered facility-administered medications [...] the referring healthcare provider. documented in this [id number] Instructions* Patient Instructions* Zelda Bautista CNP - [...] to renew/prescribe testing supplies. documented in this [id number] History of Present illness Narrative* Zelda Bautista [...] visit with us. The patient did bring [employer] sugar meter with her for download today however there is not many readings on it. She states she started a new job at [employer] and does noise get breaks to check [...] 4. Patient to cont. To follow with prep cook 5. Patient will require 2 hour 75 gram OGTT 8-12 weeks after delivery. 6. Follow-up in 2 weeks. Risks and potential complications of diabetes were reviewed with the patient. Electronically signed by Zelda MARIN 07/09/2110:03 AM documented in this [id number] History of Present illness Narrative* Lelo Gallegos [...] month during . While awaiting appointment with prep cook, patient provided with details of GDM diet, [...] 1 hour post prandial. 4. Referral to prep cook 5. Patient will require 2 hour 75 gram OGTT 8-12 weeks after delivery. 6. Follow-up in 2 weeks. Risks and potential complications of diabetes were reviewed with the patient. documented in this encounterOhioHealthEvaluation + Plan note No data available for this section [facility]* Diagnosis Diet controlled gestational diabetes mellitus (GDM) in second trimester [facility]* Diagnosis Acute frontal sinusitis, recurrence not specified- Primary documented in this encounter [employer] Phone: evaluation note* Diagnosis Diet controlled gestational diabetes mellitus (GDM) in third trimester- Primary [facility] Diagnosis Diet controlled gestational diabetes mellitus (GDM) in third trimester [facility] Diagnosis Viral URI- Primary Acute upper respiratory infections of unspecified site documented in this encounter [employer] Phone: evalpwqclg note* Diagnosis Strain of rhomboid muscle, initial encounter Chest wall muscle strain, initial encounter documented in this encounter [employer] Phone: evalulugvk note* Diagnosis Viral syndrome- Primary Unspecified viral infection, in conditions classified elsewhere and of unspecified site documented in this encounter [employer] Phone: evaluation note* Diagnosis Hemorrhoids, unspecified hemorrhoid type [facility]* Diagnosis COVID-19- Primary Omphalitis in adult Unspecified local infection of skin and subcutaneous tissue documented in this encounter [employer] Phone: evaluation note* Diagnosis Encounter for general adult medical examination with abnormal findings- Primary Anxiety and depression History of opioid abuse (HCC) Morbid obesity with body mass index (BMI) of 40.0 or higher (HCC) [facility]* Diagnosis Anxiety and depression- Primary At risk for obstructive sleep apnea Chronic bilateral low back pain without sciatica Hepatitis C antibody positive in blood Body mass index 40.0-44.9, adult (HCC) Body Mass Index 40.0-44.9, adult History of opioid abuse (HCC) [facility]* Diagnosis Morbid obesity with body mass index (BMI) of 40.0 or higher (HCC) [facility]* Diagnosis Acute pharyngitis, unspecified etiology- Primary documented in this encounter [employer] Phone: evaluation note* Diagnosis Acute bronchitis, unspecified organism- Primary documented in this encounter [employer] Phone: evalxcxcel note* Diagnosis Masseter muscle spasm- Primary Spasm of muscle Other acute postprocedural pain documented in this encounter [employer] Phone: evaluation note* Diagnosis Dry socket- Primary Alveolitis of jaw documented in this encounter [email or web address]* Diagnosis Sprain of right ankle, unspecified ligament, initial encounter- Primary documented in this encounter [facility]* Diagnosis Toothache- Primary Unspecified disorder of the teeth and supporting structures Dental decay Unspecified dental caries documented in this encounter [facility]* Diagnosis 26 weeks gestation of - Primary state, incidental [facility]* Instructions* Anuj Quinn MD - 06/24/2020 Although many zrsj-bik-lsimwyg cough cold flu sinus medications are safe in , I would contact her SHEAR HELPER office in [place] [facility] to verify what your SHEAR HELPER group feels a safe in . Tylenol [...] be sent through Care Everywhere. * Sinusitis (Surinamese) [facility] Discharge instructions* Attachments The following attachments cannot be sent through Care Everywhere. * URI (Upper Respiratory Infection) (Surinamese) documented [facility]: Hospital Discharge instructions* Attachments The following attachments cannot be sent through Care Everywhere. * Muscle Strain (Surinamese) [facility] Phone: Hospital Discharge instructions* Attachments The following attachments cannot be sent through Care Everywhere. * Viral Infections (Surinamese) documented [facility]: Hospital Discharge instructions* Attachments The following attachments cannot be sent through Care Everywhere. * Coronavirus Disease (COVID-19): General Info (Surinamese) * Coronavirus Disease (COVID-19): Isolation (Surinamese) * Piercing: Infection (Surinamese) documented [facility]: spital Discharge instructions* Instructions* Clark Moser MD - 07/22/2021 Use Tylenol or Motrin for pain. Take amoxicillin twice a day. Amoxicillin treats strep throat, ear infections, bronchitis and pneumonia. Call primary care doctor for close follow-up. * Attachments The following attachments cannot be sent through Care Everywhere. * Sore Throat (Surinamese) documented [facility]: spital Discharge instructions* Attachments The following attachments cannot be sent through Care Everywhere. * Bronchitis (Surinamese) documented in this [facility] [employer] Phone: Prescreenspital Discharge instructions* Attachments The following attachments cannot be sent through Care Everywhere. * Cramp: Muscle (Surinamese) * Pain Post-Surgery: Acute (Surinamese) documented in this [facility] [employer] Phone: PrescreenspBuzzoola Discharge instructions* Attachments The following attachments cannot be sent through Care Everywhere. * Ollie Tooth Extraction: Post-op (Surinamese) documented in this [facility] [employer] Phone: [employer] Discharge instructions No data available for this section [facility]* Attachments The following attachments cannot be sent through Care Everywhere. * Ankle Sprain (Surinamese) documented in this [facility] Discharge instructions* Attachments The following attachments cannot be sent through Care Everywhere. * : Weeks 26 to 30 (Surinamese) * : When to Call (After 20 Weeks): General Info (Surinamese) * : Twins: General Info (Surinamese) documented in this [facility] note No data available for this section [facility] referral (narrative)* Consultation (Routine) Status Reason Specialty Diagnoses / Procedures Referred By Contact Referred To Contact Authorized Nutrition Diagnoses Diet controlled gestational diabetes mellitus (GDM) in second trimester Lelo Gallegos MD [address] [place] [address] [facility] Services [address] [place] [address] [facility] for visit Narrative* Consultation (Routine) - Pending Review Specialty Diagnoses / Procedures Referred By Contac t Referred To Contact Gastroenterology Diagnoses Hemorrhoids, unspecified hemorrhoid type Germania Galaviz, PRODUCTION DIRECTOR [address] [place] [address] Holland Ann MD [address] [place] [address] Referral ID Status Reason Start Date Expiration Date V isits Requested Visits Authorized [id number] Pending Review 12/29/2020 01/14/2022 1 1 [facility] Assessments Diagnosis Accidental overdose of heroin, [...] FoundDocuments on File Type Date Recorded Patient Public Health Advisor Expl anation Advance Directives and Living Will Power of Marriage And Family Therapist Documents on File Type Date Recorded Patient Public Health Advisor Expl anation Advance Directives and Living Will 06/14/2019 7:25 AM does not have 3/13/2 0 Latest Code Status on File Code Status Date Activated Date Inactivated Comments Full Code 06/15/2019 9:29 AM 06/17/2019 4:38 PM Full Code - Unverified 06/14/2019 8:35 AM 06/15/2019 9:29 AM Documents on File Type Date Recorded Patient Public Health Advisor Expl anation Advance Directives and Living Will 06/14/2019 7:25 AM does not have 3/13/2 0 Latest Code Status on File Code Status Date Activated Date Inactivated Comments Full Code 06/15/2019 9:29 AM 06/17/2019 4:38 PM Full Code - Unverified 06/14/2019 8:35 AM 06/15/2019 9:29 AM Documents on File Type Date Recorded Patient Public Health Advisor Expl anation Advance Directives and Living Will 06/20/2019 1:10 PM does not have 3/13/2 0 Documents on File Type Date Recorded Patient Public Health Advisor Expl anation ACP-Advance Directive ACP-Power of Marriage And Family Therapist Documents on File Type Date Recorded Patient Public Health Advisor Expl anation Advance Directives and Living Will 06/20/2019 1:10 PM does not have 3/13/2 0 Documents on File Type Date Recorded Patient Public Health Advisor Expl anation Advance Directives and Living Will 08/28/2020 5:58 AM does not have 3/13/2 0 Latest Code Status on File Code Status Date Activated Date Inactivated Comments Full Code 08/28/2020 11:15 AM 08/30/2020 11:53 AM Full Code 08/28/2020 5:31 AM 08/28/2020 11:07 AM Full Code 06/15/2019 9:29 AM 06/17/2019 4:38 PM Documents on File Type Date Recorded Patient Public Health Advisor Expl anation Advance Directives and Living Will 08/28/2020 5:58 AM does not have 3/13/2 0 Latest Code Status on File Code Status Date Activated Date Inactivated Comments Full Code 08/28/2020 11:15 AM 08/30/2020 11:53 AM Full Code 08/28/2020 5:31 AM 08/28/2020 11:07 AM Full Code 06/15/2019 9:29 AM 06/17/2019 4:38 PM Documents on File Type Date Recorded Patient Public Health Advisor Expl anation Advance Directives and Livin g Will 05/15/2021 12:00 AM Latest Code Status on File Code Status Date Activated Date Inactivated Comments Full Code 10/05/2023 9:02 PM Hospital Course * Savita Stiles PA-C - 06/17/2019 10:12 AM EDT [facility] DISCHARGE SUMMARY Tia Levin Account: [id number] Admitted: 06/14/2019 Discharge Date/Time: 06/17/19 / 10:12 [...] and heroine use who presented to [facility] 06/14/19 with complaints of abdominal pain and nausea. [facility] AST 1116 ALT 665 Alk phos 255 T bili 6.5 Lipase 8. CTAP revealed pericholecystic fluid vs GB wall thickening, no gallstones or hepatic pathology noted. Patient transferred to [facility] 06/14/2019 for further treatment and evaluation. GI followedwith recommendations as discussed. Patient was stable for discharge home on 06/17/19. 1. Acute Liver Injury: [facility] AST 1116 ALT 665 Alk phos [...] chart for all vitals, diagnostic data, and surgical product sales consultant notes. I discussed patient's case with Dr. Gregorio, Dr. Hay (GI) and RN. Discharge Medications Medication List ASK your doctor about these medications naltrexone microspheres Commonly known as: VivitroL Inject 380 (three hundred eighty) mg into the shoulder, thigh, or buttocks every 30 (thirty) days . Physician(s) Family: Physician No, Phone: None, Address: [facility] Up: Javier Hay MD [address] [facility] [address] Follow up Repeat weekly CBC, CMP and PT/INR for the next 3-4 weeks then follow up out patient with Dr. Hay. Laboratory Follow Up by [facility]: Weekly labs for CBC, CMP, PT/INR Additional Information: Patient seen and examined day of discharge. For more information regarding patient's care, including complete radiology reports, please contact [facility] Records at Patient instructions, including activity, [...] and heroine use who presented to [facility] 06/14/19 with complaints of abdominal pain and nausea. [facility] AST 1116 ALT 665 Alk phos 255 T bili 6.5 Lipase 8. CTAP revealed pericholecystic fluid vs GB wall thickening, no gallstones or hepatic pathology noted. Patient transferred to [facility] 06/14/2019 for further treatment and evaluation. [...] 1:16 PM EDT RESOURCES FOR PRIMARY CARE [facility] Primary Care Closed Opens tomorrow [address], [place] [address] [facility] [place] [address] [place] [address] DIRECTIONS WEBSITE [facility] Walk-In Care Closed Opens tomorrow 11 AM [address], [place] [address] documented in this encounter* Instructions* Adia Dillon, [...] Opioid Use Disorder: Medication-Assisted Treatment: General Info (Surinamese) documented in this encounter* Attachments The following attachments cannot be sent through Care Everywhere. * Bacterial Vaginosis (Surinamese) * Trichomoniasis (Surinamese) documented in this encounter* Attachments The following attachments cannot be sent through Care Everywhere. * Dental Surgery: Generic: Post-op (Surinamese) documented in this encounter* Attachments The following attachments cannot be sent through Care Everywhere. * Bronchitis (Surinamese) * Pneumonia (Surinamese) documented in this encounter* Attachments The following attachments cannot be sent through Care Everywhere. * Poison [place] - [place] - and [place] (Surinamese) documented in this encounter History of Present Illness * Javier Hay MD - 06/17/2019 9:59 AM EDT GASTROENTEROLOGY DAILY PROGRESS NOTE 1 Patient Name: Tia Levin MR #: [id number] Assessment/Plan: Elevated LFTs Assessment & Plan 29yo F with PMHx IVDU and hepatitis C who presents from [facility] with elevated LFTs and imaging c/f [...] Inpatient Progress Note 06/17/2019 Tia Levin 1990 [id number] Assessment/Plan: Tia Khushi Levin is a 29 y.o. female with a history of amphetamine and heroine use who presented to [facility] 06/14/19 with complaints of abdominal pain and nausea. [facility] AST 1116 ALT 665 Alk phos 255 T bili 6.5 Lipase 8. CTAP revealed pericholecystic fluid vs GB wall thickening, no gallstones or hepatic pathology noted. Patient transferred to [facility] 06/14/2019 for further treatment and evaluation. [...] labs, diagnostics, vitals including pulse ox, and surgical product sales consultant/other provider recommendations. No acute issues [...] 2 Patient Name: Tia Levin MR #: [id number] Assessment/Plan: Elevated LFTs Assessment & Plan 29yo [...] Inpatient Progress Note 06/16/2019 Tia Levin 1990 [id number] Assessment/Plan: Tia Levin is a 29 y.o. female with a history of amphetamine and heroine use who presented to [facility] 06/14/19 with complaints of abdominal pain and nausea. [facility] AST 1116 ALT 665 Alk phos 255 T bili 6.5 Lipase 8. CTAP revealed pericholecystic fluid vs GB wall thickening, no gallstones or hepatic pathology noted. Patient transferred to [facility] 06/14/2019 for further treatment and evaluation. [...] recent labs, diagnostics, vitals including pulseox, and surgical product sales consultant/other provider recommendations. No acute issues [...] 2 Patient Name: Tia Levin MR #: [id number] Assessment/Plan: Elevated LFTs Assessment & Plan 29yo F with PMHx IVDU and hepatitis C who presents from [facility] with elevated LFTs and imaging c/f [...] Radiology, Medications and Transcriptions Aisha Hare CNP [facility] (for staff use only) * Indra Pruitt MD - 06/15/2019 10:43 AM EDT [facility] 06/15/2019 Tia Levin 1990 [id number] Assessment/Plan: Tia Levin is a 29 y.o. female with a history of amphetamine and heroine use who presented to [facility] 06/14/19 with complaints of abdominal pain and nausea. [facility] AST 1116 ALT 665 Alk phos 255 T bili 6.5 Lipase 8. CTAP revealed pericholecystic fluid vs GB wall thickening, no gallstones or hepatic pathology noted. Patient transferred to [facility] 06/14/2019 for further treatment and evaluation. 1. Acute Liver Injury: [facility] AST 1116 ALT 665 Alk phos [...] not have a PCP and refused a top case assembler consult for assistance. Verified insurance and Rx. [...] spoke with patient about going to any [facility] to have her lab taken so [...] daily (lemon water) Occasional iced coffee at [employer]. Was drinking a lot of Mountain Dew [...] mass index (BMI) of 40.0 or higher ([facility]) Farhat Vang MD [phone] Referral ID Status Reason Start Date Expiration Date Visits Requested Visits Authorized [id number] Authorized Specialty Services Required/Pat ient's Best Interest 04/16/2021 04/16/2022 1 1 Specialty Diagnoses / Procedures Referred By Contac t Referred To Contact Neurosurgery Diagnoses Chronic bilateral low back pain without sciatica Farhat Vang MD [address] [phone] Carina Kline MD [address] [place] [address] Referral ID Status Reason Start Date Expiration Date Visits Requested Visits Authorized [id number] Authorized Specialty Services Required/Pat ient's Best Interest 05/14/2021 05/14/2022 1 1 Specialty Diagnoses / Procedures Referred By Contac t Referred To Contact Rehabilitation Diagnoses Chronic bilateral low back pain without sciatica Farhat Vang MD [address] [address] Referral ID Status Reason Start Date Expiration Date Visits Requested Visits Authorized [id number] Authorized Specialty Services Required/Pat ient's Best Interest 05/14/2021 05/14/2022 1 1 Specialty Diagnoses / Procedures Referred By Contac t Referred To Contact Diagnoses At risk for obstructive sleep apnea Farhat Vang MD [address] [address] Gabriel Jacinto MD [address] [place] [address] Referral ID Status Reason Start Date Expiration Date Visits Requested Visits Authorized [id number] Authorized Specialty Services Required/Pat jvnt's Best Interest [...] in second trimester Lelo Gallegos MD [address] [place] [address] Nutrition Services [address] [place] [address] Reason Comments Gestational Diabetes Status Reason Specialty Diagnoses / Procedures Referred By Contact Referred To Contact Closed Endocrinology Diagnoses Diet controlled gestational diabetes mellitus (GDM) in second trimester Roslyn Stevenson MD [address] [place] [address] Lelo Gallegos MD [address] [place] [address] Reason Comments Pharyngitis sore throat and head [...] mass index (BMI) of 40.0 or higher ([facility]) Farhat Vang MD [address] [facility] [address] [place] [address] Nutrition Services [address] [place] [phone] Referral ID Status Reason Start Date Expiration Date Visits Requested Visits Authorized [id number] Authorized Specialty Services Required/Pat jvnt's Best Interest [...] and Physical Note 06/14/19 Tia Levin 1990 [id number] Assessment/Plan: Tia Levin is a 29 y.o. female with a history of amphetamine and heroine use who presented to [facility] 06/14/19 with complaints of abdominal pain and nausea. [facility] AST 1116 ALT 665 Alk phos 255 T bili 6.5 Lipase 8. CTAP revealed pericholecystic fluid vs GB wall thickening, no gallstones or hepatic pathology noted. Patient transferred to [facility] 06/14/2019 for further treatment and evaluation. 1. Elevated LFTs: [facility] AST 1116 ALT 665 Alk phos 255 T bili 6.5 (normal 02/2019). [facility] CTAP as noted above. RUQ U/S [...] and heroine use who presented to [facility] 06/14/19 with complaints of abdominal pain and nausea. OL AST 1116 ALT 665 Alk phos 255 T bili 6.5 Lipase 8. CTAP revealed pericholecystic fluid vs GB wall thickening, no gallstones or hepatic pathology noted. Patient transferred to [facility] 06/14/2019 for further treatment and evaluation. [...] labs, diagnostics, vitals including pulse ox, and surgical product sales consultant/other provider recommendations. Discussed with collaborating [...] file Gets together: Not on file Attends rastafari service: Not on file Active member of [...] reviewed, including documentation from previous hospitalizations and surgical product sales consultant recommendations as summarized below. Briefly, [...] Name: Tia Levin Admit Date: MR #: [id number] : 1990 Senior addendum 29 y/o F [...] Hepatitis C, and hx of presents to [facility] with jaundice and abdominal pain. 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 I discussed the case with the resident/TROUSSEAU CONSULTANT and agree with the findings and plan as documented in his/her note and/or any note I supplied. Associated Order(s): IP CONSULT TO GASTROENTEROLOGY GASTROENTEROLOGY CONSULT NOTE 4 Patient Name: Tia Levin Admit Date: MR #: [id number] : 1990 Physicians: Physician Judy (Family); Brie Moreno MD (Referring) Consult Ordered By: Franny Sims PA-C Assessment and Plan: Other Elevated LFTs Assessment & Plan 29yo F with PMHx IVDU and hepatitis C who presents from [facility] with elevated LFTs and imaging c/f [...] and hepatitis C who presents from [facility] with elevated LFTs and imaging c/f [...] she has been in and out of shelter over past 3mo. She denies EtOH. Denies [...] file Gets together: Not on file Attends rastafari service: Not on file Active member of [...] Invalid input(s): CO2, LABALBU Aisha Hare CNP [facility] (for staff use only) Associated [...] reviewed, including documentation from previous hospitalizations and surgical product sales consultant recommendations as summarized below. Briefly, [...] and content) ED PROVIDER NOTE [facility] NAME: Tia Levin AGE: 29 y.o. : 1990 VISIT DATE: 08/13/2019 CSN: [id number] PCP: Physician No Chief Complaint Patient presents with Drug Overdose This is a 29-year-old female brought to the ER via EMS for evaluation. Time my exam patient is alert and oriented. She states she was in the [employer] parking lot bent over in her car [...] file Gets together: Not on file Attends rastafari service: Not on file Active member of [...] note reviewed. Exam conducted with a supervisor baking present (Nurses at the bedside). Constitutional: General: [...] people with drug addiction. [address] [facility] [address] Contact information for after-discharge care Follow-up information has not been specified. Adia Dillon CNP 08/13/191948 Pt brought in by [facility], states she was found by [facility] [...] section and content) DATE CREATED AUTHOR 08/21/2019 [facility] DATE CREATED AUTHOR AUTHOR'S ORGANIZ ATION 02/15/2021 [facility] DATE CREATED AUTHOR AUTHOR'S ORGANIZ ATION 05/18/2021 [facility] DATE CREATED AUTHOR AUTHOR'S ORGANIZ ATION 07/02/2021 [facility] DATE CREATED AUTHOR AUTHOR'S ORGANIZ ATION 07/09/2021 [facility] DATE CREATED AUTHOR AUTHOR'S ORGANIZ ATION 07/05/2022 [facility] DATE CREATED AUTHOR AUTHOR'S ORGANIZ ATION 05/14/2023 [facility] DATE CREATED AUTHOR AUTHOR'S ORGANIZ ATION 10/07/2023 [facility] DATE CREATED AUTHOR AUTHOR'S ORGANIZ ATION 11/25/2023 [facility] EPIC DATE CREATED AUTHOR AUTHOR'S ORGANIZ ATION 11/26/2023 [facility] Ordered Prescriptions (unrec ognized section and [...]
Care Teams (unrecognized sec tion and content) Cardboard Inserter Relationship Specialty Start Date End Date No, Physician [facility] PCP - General 12/29/20 Germania Galaviz, PRODUCTION DIRECTOR [address] [place] [id number] Nurse Practitioner Obstetrics/Gynecology 11/01/19 Cardboard Inserter Relationship Specialty Start Date End Date No, Physician [facility] PCP - General 12/29/20 Germania Galaviz, PRODUCTION DIRECTOR [address] [place] [address] Nurse Practitioner Obstetrics/Gynecology 11/01/19 Cardboard Inserter Relationship Specialty Start Date End Date Farhat Vang MD [address] [address] PCP - General Family Medicine 04/16/21 Germania Galaviz, PRODUCTION DIRECTOR [address] [place] [address] Nurse Practitioner Obstetrics/Gynecology 11/01/19 Radha Pantoja MD [address] [place] [address] Biofuels Manager Obstetrics/Gynecology 02/02/21 Yvonne Santos MD [address] [facility] [address] [place] [address] Biofuels Manager Obstetrics/Gynecology 02/02/21 Regla Dias, IRAIDA [address] [place] [address] Multifocal Lens Assembler Obstetrics/Gynecology 02/02/21 Cardboard Inserter Relationship Specialty Start Date End Date Farhat Vang MD [address] [facility] [address] [place] [address] PCP - General Family Medicine 04/16/21 Germania Galaviz, PRODUCTION DIRECTOR [address] [place] [address] Nurse Practitioner Obstetrics/Gynecology 11/01/19 Radha Pantoja MD [address] [place] [address] Biofuels Manager Obstetrics/Gynecology 02/02/21 Yvonne Santos MD [address] [place] [address] Biofuels Manager Obstetrics/Gynecology 02/02/21 LarissaRgela alcazar, [facility] [address] [place] [address] Multifocal Lens Assembler Obstetrics/Gynecology 02/02/21 Cardboard Inserter Relationship Specialty Start Date End Date Farhat Vang MD [address] [facility] [address] [place] [address] PCP - General Family Medicine 04/16/21 Germania Galaviz, [facility] [address] [place] [address] Nurse Practitioner Obstetrics/Gynecology 11/01/19 Radha Pantoja MD [address] [place] [address] Biofuels Manager Obstetrics/Gynecology 02/02/21 Yvonne Santos MD [address] [place] [address] Biofuels Manager Obstetrics/Gynecology 02/02/21 Larissa, Reglasoren Arriaga, [facility] [address] [place] [address] Multifocal Lens Assembler Obstetrics/Gynecology 02/02/21 Cardboard Inserter Relationship Specialty Start Date End Date Linda Sheppard DO [address] [facility] [place] [address] PCP - General Family Medicine 09/04/22 Cardboard Inserter Relationship Specialty Start Date End Date Linda Sheppard DO [address] [facility] [place] [address] PCP - General Family Medicine 09/04/22 Cardboard Inserter Relationship Specialty Start Date End Date Linda Sheppard DO [address] [place] [address] PCP - General Family Medicine 09/04/22 FOR [...] BE BASED ON THE PRIMARY CLINICAL RECORDS. [facility]. provides no warranty or guarantee of the accuracy or completeness of information in this document.
[2023-12-02 11:46] VITALS: BP 124/70; PULSE 101
== END 2023-12-02 11:50 | disposition home or self-care (01) ==
LOC: FBCO 07:09 → FBC 10:58
PROVIDERS: Visit Provider Obstetrics & Gynecology
DX: O30.033 Twin pregnancy, monochorionic/diamniotic, third trimester (principal)
CPT/HCPCS: 59025

== ENCOUNTER 2023-12-06 07:02 | Outpatient (OUT) | payer BC, SELFPAY ==
--- NOTE | 2023-12-06 | US_ITS ---
[address] [address] Patient Name: TIA MONROE MRN: [id number] date: 1990 Sex: F Assigned Patient Location: [facility] Current Patient Location: Accession/Order Number: [id number] Exam Date: 12/06/2023 09:09 Report Date: 12/06/2023 11:42 At the request of: DARWIN MONROY Procedure: US OB BPP w non-stress EXAMINATION: US OB BPP w non-stress, US OB BPP w non-stress HISTORY: Monochorionic diamniotic twin O30.039 COMPARISON: No relevant comparison available. BABY A BREATHING MOVEMENTS: 2 GROSS BODY MOVEMENTS: 2 TONE: 2 QUALITATIVE AMNIOTIC FLUID VOLUME: 2 PRESENTATION: Breech HEART RATE: 165 bpm AMNIOTIC FLUID VOLUME: 7.0 x 5.0 cm Largest pocket GESTATIONAL AGE: 35 weeks 5 days BABY B BREATHING MOVEMENTS: 2 GROSS BODY MOVEMENTS: 2 TONE: 2 QUALITATIVE AMNIOTIC FLUID VOLUME: 2 PRESENTATION: Transverse, head maternal right HEART RATE: 153 bpm AMNIOTIC FLUID VOLUME: 6.7 x 5.2 cm largest pocket GESTATIONAL AGE: 35 weeks 5 days CONCLUSION: Total biophysical profile score for baby A 8 and baby B 8. Electronically authenticated by: DAMIR ALVAREZ Date: 12/06/2023 11:42
--- NOTE | 2023-12-06 | US_ITS ---
[address] [address] Patient Name: TIA MONROE MRN: [id number] date: 1990 Sex: F Assigned Patient Location: [place] Current Patient Location: Accession/Order Number: [id number] Exam Date: 12/06/2023 09:09 Report Date: 12/06/2023 11:42 At the request of: DARWIN MONROY Procedure: US OB BPP w non-stress EXAMINATION: US OB BPP w non-stress, US OB BPP w non-stress HISTORY: Monochorionic diamniotic twin O30.039 COMPARISON: No relevant comparison available. BABY A BREATHING MOVEMENTS: 2 GROSS BODY MOVEMENTS: 2 TONE: 2 QUALITATIVE AMNIOTIC FLUID VOLUME: 2 PRESENTATION: Breech HEART RATE: 165 bpm AMNIOTIC FLUID VOLUME: 7.0 x 5.0 cm Largest pocket GESTATIONAL AGE: 35 weeks 5 days BABY B BREATHING MOVEMENTS: 2 GROSS BODY MOVEMENTS: 2 TONE: 2 QUALITATIVE AMNIOTIC FLUID VOLUME: 2 PRESENTATION: Transverse, head maternal right HEART RATE: 153 bpm AMNIOTIC FLUID VOLUME: 6.7 x 5.2 cm largest pocket GESTATIONAL AGE: 35 weeks 5 days CONCLUSION: Total biophysical profile score for baby A 8 and baby B 8. Electronically authenticated by: DAMIR ALVAREZ Date: 12/06/2023 11:42
--- OUTSIDE RECORDS SUMMARY | 2023-12-06 07:06 | XMS_ITS | CCD ---
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 Role Phone Unavailable Primary Care Provider Unavailabl e No, Physician Primary Care Provider Unavailabl e HODA MADERA Unavailable Unavailable Primary Care Provider Unavailabl e No, Physician Primary Care Provider Unavailabl Germania Becerra Unavailable Roslyn Stevenson Unavailable Radha Pantoja Unavailable Yvonne Santos Unavailable Larissa, Regla Corina Unavailable No, Physician Primary Care Provider UnavailGermania Rodriguez CNP Unavailable [phone] Roslyn Stevenson MD Unavailable Radha Pantoja MD Unavailable Yvonne Santos MD Unavailable Larissa CNM, Regla Corina Unavailable Unavailable Primary Care Provider UnavailGermania Rodriguez CNP Unavailable Roslyn Stevenson MD Unavailable Radha Pantoja MD Unavailable Yvonne Santos MD Unavailable Larissa CNM, Regla Corina Unavailable Germania Galaviz CNP Unavailable [phone] No, Physician Primary Care Provider Unavailabl e NO, PHYSICIAN Primary Care Unavailable NO, PHYSICIAN Primary Care Unavailable NO, PHYSICIAN Primary Care Unavailable GERMANIA VALENTINO Admitting Unavai lable NO, PHYSICIAN Primary Care Unavailable NO, PHYSICIAN Primary Care Unavailable NO, PHYSICIAN Primary Care Unavailable GERMANIA VALENTINO Admitting Unavai lable NO, PHYSICIAN Primary Care Unavailable YVONNE SANTOS Admitting Unavailable Radha Pantoja MD Unavailable [phone] Yvonne Santos MD Unavailable [phone] Larissa KHOURY, Regla Corina Unavailable Ciera PEDRAZA, [...] Care Unavailable NICHOLAS ROGER Attending Unavailable MARK DMUONT Attending Unavailable MARK DUMONT Attending Unavailable MARK [...] day(s), # 14 tab(s), Refills(s) 0, Pharmacy: [facility], 160, cm, 05/11/23 21:53:00 EST, Height/Length [...] oral solution (2 sources) alpha-Adrenergic Agonist, Uncompetitive J-cvhuad-U-aspartate Receptor Antagonist, Sigma-1 Agonist Start: End: take 5 mL by mouth four times daily as needed for cough brompheniramine-pse udoephedrine-DM (BROMFED DM) 2-30-10 MG/5ML syrup Take 5 mLs by mouth 4 times daily as needed for Congestion or Cough 240 mL 1 10/12/2021 11/11/2021 Active Start: 11-07-2020 End: 11-12-2020 take 5 mL by mouth three times daily as needed for cough rkqsafbwrucohef-oozkbuimgfqydwo-MB 2-30- 10 MG/5ML syrup Take 5 mLs [...] 0, (swish and spit; do not swallow), [facility], 160, cm, 05/11/23 21:53:00 EST, [...] Active Dextromethorphan / guaiFENesin (2 sources) Uncompetitive R-fqvxkm-K-asparta te Receptor Antagonist, Sigma-1 Agonist End: 06-24-2020 [...] day(s), # 15 tab(s), Refills(s) 0, Pharmacy: [facility], 160, cm, 05/13/23 11:33:00 EST, Height/Length [...] for Pain. 0 05/10/2023 Discontinued (LIST CLEANUP) [id number] 200 actuat albuterol 0.09 mg/actuat metered dose [...] 4 hours PRN, indigestion, Starting [facility] 06/14/19 at 0831 azithromycin 250 mg [...] PRN, constipation, For constipation., Starting [facility] 06/14/19 at 0831 naloxone (NARCAN) injection [...] l admission (14 sources) Admission statuses; Translations: [group home (current) use of opiate analgesic] Onset: 05-18-2019 [...] Coag (Bld) [Time] 29.8 s Normal 23.9-33.8 [facility] Comment on above: Result Comment: IV Heparin Therapy Range: 62.0-94.0 Performed By: #### P T, PTT, BMP, CDP, TROPI #### [facility] [address] [place] [address] Shop Manager: Guero Sandoval MD Basic Metabolic Profon 10-04 Anion gap [Moles/Vol] 13 mmol/L Normal 11-21 [facility] Comment on above: Performed By: #### P T, PTT, BMP, CDP, TROPI #### [facility] [address] [place] [address] Shop Manager: Guero Sandoval MD BUN/CRE Ratio Result cannot be calculated, Creatinine below linear range. Normal 11-24 [facility] Comment on above: Performed By: #### P T, PTT, BMP, CDP, TROPI #### [facility] [address] [place] [address] Shop Manager: Guero Sandoval MD Calcium [Mass/Vol] 8.7 mg/dL Normal 8.6-10.4 [facility] Comment on above: Performed By: #### P T, PTT, BMP, CDP, TROPI #### [facility] [address] [place], [place] [phone] Shop Manager: Guero Sandoval MD Chloride [Moles/Vol] 105 mmol/L Normal 98-107 [facility] Comment on above: Performed By: #### P T, PTT, BMP, CDP, TROPI #### [facility] [address] [place], [place] [id number] Shop Manager: Guero Sandoval MD CO2 [Moles/Vol] 18 mmol/L Low 20-31 [facility] Comment on above: Performed By: #### P T, PTT, BMP, CDP, TROPI #### [facility] [address] [place], [place] [phone] Shop Manager: Guero Sandoval MD Creatinine [Mass/Vol] mg/dL Low 0.5-0.9 [facility] Comment on above: Performed By: #### P T, PTT, BMP, CDP, TROPI #### [facility] [address] [place], [place] [phone] Shop Manager: Guero Sandoval MD eGFR Can not be calculated Normal >60 [facility] Comment on above: Result Comment: These results [...] P T, PTT, BMP, CDP, TROPI #### [facility] [address] [place], [place] [phone] Shop Manager: Guero Sandoval MD Glucose [Mass/Vol] 111 mg/dL High 70-99 [facility] Comment on above: Performed By: #### P T, PTT, BMP, CDP, TROPI #### [facility] [address] [place], [place] [phone] Shop Manager: Guero Sandoval MD Potassium [Moles/Vol] 3.8 mmol/L Normal 3.7-5.3 [facility] Comment on above: Performed By: #### P T, PTT, BMP, CDP, TROPI #### [facility] [address] [place] [address] Shop Manager: Guero Sandoval MD Sodium [Moles/Vol] 136 mmol/L Normal 135-144 [facility] Comment on above: Performed By: #### P T, PTT, BMP, CDP, TROPI #### [facility] [address] [place] [address] Shop Manager: Guero Sandoval MD Urea nitrogen [Mass/Vol] 6 mg/dL Normal 6-20 [facility] Comment on above: Performed By: #### P T, PTT, BMP, CDP, TROPI #### [facility] [address] [place] [phone] Shop Manager: Guero Sandoval MD Brain Natri. Peptideon 10-04 Pro-BNP <36 Normal 0-300 [facility] Comment on above: Result Comment: An a ge-independent cutoff point of 300 pg/ml has a 98% negative predictive value excluding acute heart failure. Performed By: #### B CAMPUS SUPERVISOR, TROPI #### [facility] [address] [place] [address] Shop Manager: Thor Hernández MD CBC with Diffon 10-05-2023 Abs. Basophil 0.04 k/uL Normal 0.00-0.20 [facility] Comment on above: Performed By: #### P T, PTT, BMP, CDP, TROPI #### [facility] [address] [place] [phone] Shop Manager: Guero Sandoval MD Abs.Imm.Granulocyte 0.16 k/uL Normal 0.00-0.30 [facility] Comment on above: Performed By: #### P T, PTT, BMP, CDP, TROPI #### [facility] [address] [place], [place] [phone] Shop Manager: Guero Sandoval MD Abs.Neutrophil (Seg) 8.05 k/uL High 2.5-7.0 [facility] Comment on above: Performed By: #### P T, PTT, BMP, CDP, TROPI #### [facility] [address] [place] [address] Shop Manager: Guero Sandoval MD Basophils/100 WBC (Bld) 0 % Normal 0-2 [facility] Comment on above: Performed By: #### P T, PTT, BMP, CDP, TROPI #### [facility] [address] [place], [place] [phone] Shop Manager: Guero Sandoval MD Eosinophils (Bld) [#/Vol] 0.08 10*3/uL Normal 0.00-0.4 0 [facility] Comment on above: Performed By: #### P T, PTT, BMP, CDP, TROPI #### [facility] [address] [place] [address] Shop Manager: Guero Sandoval MD Eosinophils/100 WBC (Bld) 1 % Normal 0-5 [facility] Comment on above: Performed By: #### P T, PTT, BMP, CDP, TROPI #### [facility] [address] [place], [place] [phone] Shop Manager: Guero Sandoval MD Erythrocyte distribution width (RBC) [Ratio] 13.1 % Normal 12.1-15.2 [facility] Comment on above: Performed By: #### P T, PTT, BMP, CDP, TROPI #### [facility] [address] [place] [phone] Shop Manager: Guero Sandoval MD Hematocrit (Bld) [Volume fraction] 28.8 % Low 36.0-46.0 [facility] Comment on above: Performed By: #### P T, PTT, BMP, CDP, TROPI #### [facility] [address] [place] [phone] Shop Manager: Guero Sandoval MD Hemoglobin (Bld) [Mass/Vol] 9.8 g/dL Low 12.0-16.0 [facility] Comment on above: Performed By: #### P T, PTT, BMP, CDP, TROPI #### [facility] [address] [place] [phone] Shop Manager: Guero Sandoval MD Immature granulocytes/100 WBC (Bld) 2 % Normal 0-5 [facility] Comment on above: Performed By: #### P T, PTT, BMP, CDP, TROPI #### [facility] [address] [place] [phone] Shop Manager: Guero Sandoval MD Lymphocytes (Bld) [#/Vol] 1.61 10*3/uL Normal 1.00-4.8 0 [facility] Comment on above: Performed By: #### P T, PTT, BMP, CDP, TROPI #### [facility] [address] [place] [phone] Shop Manager: Guero Sandoval MD Lymphocytes/100 WBC (Bld) 15 % Normal 15-40 [facility] Comment on above: Performed By: #### P T, PTT, BMP, CDP, TROPI #### [facility] [address] [place] [phone] Shop Manager: Guero Sandoval MD MCH (RBC) [Entitic mass] 27.7 pg Normal 26.0-34.0 [facility] Comment on above: Performed By: #### P T, PTT, BMP, CDP, TROPI #### [facility] [address] [place] [address] Shop Manager: Guero Sandoval MD MCHC (RBC) [Mass/Vol] 34.0 g/dL Normal 31.0-37.0 [facility] Comment on above: Performed By: #### P T, PTT, BMP, CDP, TROPI #### [facility] [address] [place] [address] Shop Manager: Guero Sandoval MD MCV (RBC) [Entitic vol] 81.4 fL Normal 80.0-100.0 [facility] Comment on above: Performed By: #### P T, PTT, BMP, CDP, TROPI #### [facility] [address] [place] [address] Shop Manager: Guero Sandoval MD Monocytes (Bld) [#/Vol] 0.77 10*3/uL Normal 0.00-1.00 [facility] Comment on above: Performed By: #### P T, PTT, BMP, CDP, TROPI #### [facility] [address] [place] [address] Shop Manager: Guero Sandoval MD Monocytes/100 WBC (Bld) 7 % Normal 4-8 [facility] Comment on above: Performed By: #### P T, PTT, BMP, CDP, TROPI #### [facility] [address] [place] [address] Shop Manager: Guero Sandoval MD Neutrophil (Seg) 75 % Normal 47-[address] [facility] Comment on above: Performed By: #### P T, PTT, BMP, CDP, TROPI #### [facility] [address] [place] [address] Shop Manager: Guero Sandoval MD Platelet mean volume (Bld) [Entitic vol] 10.2 fL Normal 6.0-12.0 [facility] Comment on above: Performed By: #### P T, PTT, BMP, CDP, TROPI #### [facility] [address] [place] [address] [phone] Shop Manager: Guero Sandoval MD Platelets (Bld) [#/Vol] 275 10*3/uL Normal 140-450 [facility] Comment on above: Performed By: #### P T, PTT, BMP, CDP, TROPI #### [facility] [address] [place] [address] [phone] Shop Manager: Guero Sandoval MD RBC (Bld) [#/Vol] 3.54 10*6/uL Low 4.00-5.20 [facility] Comment on above: Performed By: #### P T, PTT, BMP, CDP, TROPI #### [facility] [address] [place] [address] Shop Manager: Guero Sandoval MD WBC (Bld) [#/Vol] 10.7 10*3/uL Normal 3.5-11.0 [facility] Comment on above: Performed By: #### P T, PTT, BMP, CDP, TROPI #### [facility] [address] [place] [address] Shop Manager: Guero Sandoval MD CT CHEST PULMONARY EMBOLISM [...] Carlos Petersen MD 10/05/23 Final result Normal [facility] Liver Profileon 10-05-2023 Albumin [Mass/Vol] 3.0 g/dL Low 3.5-5.2 [facility] Comment on above: Performed By: #### L IVP #### [facility] [address] [place] [address] Shop Manager: Guero Sandoval MD Alkaline Phos 74 U/L Normal 35-104 [facility] Comment on above: Performed By: #### L IVP #### [facility] [address] [place] [address] Shop Manager: Guero Sandoval MD ALT [Catalytic activity/Vol] U/L Low 5-33 [facility] Comment on above: Performed By: #### L IVP #### [facility] [address] [place], [place] [phone] Shop Manager: Guero Sandoval MD AST [Catalytic activity/Vol] 9 U/L Normal <32 [facility] Comment on above: Performed By: #### L IVP #### [facility] [address] [place], [place] [phone] Shop Manager: Guero Sandoval MD Bilirubin [Mass/Vol] 0.3 mg/dL Normal 0.3-1.2 [facility] Comment on above: Performed By: #### L IVP #### [facility] [address] [place], [place] [phone] Shop Manager: Guero Sandoval MD Bilirubin, Indirect Can not be calculated Normal 0.0-1.0 [facility] Comment on above: Performed By: #### L IVP #### [facility] [address] [place], [place] [phone] Shop Manager: Guero Sandoval MD Bilirubin.indirect [Mass/Vol] mg/dL Normal <0.3 [facility] Comment on above: Performed By: #### L IVP #### [facility] [address] [place], [place] [phone] Shop Manager: Guero Sandoval MD Protein [Mass/Vol] 5.9 g/dL Low 6.4-8.3 [facility] Comment on above: Performed By: #### L IVP #### [facility] [address] [place], [place] [phone] Shop Manager: Guero Sandoval MD PTon 10-05-2023 INR Coag (PPP) [Relative time] 1.0 {INR} Normal [facility] Comment on above: Result Comment: Therapeutic Range: Moderate Anticoagulant Intensity: INR = 2.0-3.0 High Anticoagulant Intensity: INR = 2.5-3.5 Performed By: #### P T, PTT, BMP, CDP, TROPI #### [facility] [address] [place] [address] Shop Manager: Guero Sandoval MD PT Coag (PPP) [Time] 13.6 s Normal 11.5-14.2 [facility] Comment on above: Performed By: #### P T, PTT, BMP, CDP, TROPI #### [facility] [address] [place] [address] Shop Manager: Guero Sandoval MD Troponinon 10-05-2023 Troponin, High Sens <6 Normal 0-14 [facility] Comment on above: Result Comment: High Sensitivity Troponin values cannot be compared with other Troponin methodologies. Performed By: #### B CAMPUS SUPERVISOR, TROPI #### [address] [phone] Shop Manager: Thor Hernández MD Troponin, High Sens <6 Normal 0-14 [facility] Comment on above: Result Comment: High Sensitivity Troponin values cannot be compared with other Troponin methodologies. Performed By: #### P T, PTT, BMP, CDP, TROPI #### [facility] [address] [place] [address] Shop Manager: Guero Sandoval MD UA w/Reflex Cultureon 2023 Bilirubin, SemiQt,Ur Negative Normal NEG [facility] Comment on above: Performed By: #### U MICAO, UAX #### [facility] [employer] [address] [place] [address] Shop Manager: Thor Hernández MD Blood, Urine Negative Normal NEG [facility] Comment on above: Performed By: #### U MICAO, UAX #### [facility] [employer] [address] [place] [address] Shop Manager: Thor Hernández MD Clarity (U) Cloudy Abnormal CLEAR [facility] Comment on above: Performed By: #### U MICAO, UAX #### [facility] [address] [place] [address] Shop Manager: Thor Hernández MD Color (U) Yellow Normal YEL [facility] Comment on above: Performed By: #### U MICAO, UAX #### [facility] [address] [place] [address] Shop Manager: Thor Hernández MD Glucose Ql (U) 1+ mg/dL Abnormal NEG [facility] Comment on above: Performed By: #### U MICAO, UAX #### [facility] [address] [place] [address] Shop Manager: Thor Hernández MD Ketones Ql (U) TRACE Abnormal NEG [facility] Comment on above: Performed By: #### U MICAO, UAX #### [facility] [employer] [address] [place] [address] Shop Manager: Thor Hernández MD Leukocyte esterase Test strip Ql (U) Negative Normal NEG [facility] Comment on above: Performed By: #### U MICAO, UAX #### [facility] [address] [place] [address] Shop Manager: Thor Hernández MD Nitrite,Ur Negative Normal NEG [facility] Comment on above: Performed By: #### U MICAO, UAX #### [facility] [address] [place] [address] Shop Manager: Thor Hernández MD PH,Ur 6.0 Normal 5.0-8.0 [facility] Comment on above: Performed By: #### U MICAO, UAX #### [facility] [address] [place] [address] Shop Manager: Thor Hernández MD Protein Ql (U) TRACE Abnormal NEG [facility] Comment on above: Performed By: #### U MICAO, UAX #### [facility] [employer] [address] [place] [address] Shop Manager: Thor Hernández MD Spec. [place],Ur 1.028 Normal 1.005-1.030 [facility] Comment on above: Performed By: #### U MICAO, UAX #### [address] [address] Shop Manager: Thor Hernández MD Urobilinogen,Ur Normal Normal 0.0-1.0 [facility] Comment on above: Performed By: #### U MICAO, UAX #### [address] [address] Shop Manager: Thor Hernández MD Urinalysis,Microon 4 Bacteria MODERATE Abnormal NONE [facility] Comment on above: Performed By: #### U MICAO, UAX #### [address] [address] Shop Manager: Thor Hernández MD Casts 2 TO 5 HYALINE Normal 0-8 [facility] Comment on above: Result Comment: Refe rence range defined for non-centrifuged specimen. Performed By: #### U MICAO, UAX #### [address] [address] Shop Manager: Thor Hernández MD Epithelial cells LM Ql (Urine sed) 20 TO 50 Normal 0-5 [facility] Comment on above: Performed By: #### U MICAO, UAX #### [address] [address] Shop Manager: Thor Hernández MD Urine RBC's 0 TO 2 Normal 0-4 [facility] Comment on above: Result Comment: Refe rence range defined for non-centrifuged specimen. Performed By: #### U MICAO, UAX #### [address] [address] Shop Manager: Thor Hernández MD Urine WBC's 5 TO 10 Normal 0-5 [facility] Comment on above: Performed By: #### U KAYDEN UAX #### [facility] [address] [address] Shop Manager: Thor Hernández MD AFP, Maternalon 07-28-2023 Determined by Ultrasound Normal [facility] Comment on above: Performed By: #### T SH, FT4, FT3 #### [facility] [address] [place] [address] Shop Manager: Thor Hernández MD #### AAFPM #### [facility] [employer] [address] [place] [address] Shop Manager: Thor Hernández MD [facility] [address] [place], [place] [phone] Shop Manager: Tim Vizcarra MD Due Date SEE NOTE Normal [facility] Comment on above: Result Comment: Resu lts for Estimated Due Date: 01 06 24 Performed By: #### T SH, FT4, FT3 #### [facility] [address] [place] [address] Shop Manager: Thor Hernández MD #### AAFPM #### [address] [address] Shop Manager: Thor Hernández MD [facility] [address] [place] [address] Shop Manager: Tim Vizcarra MD Family History No Normal [facility] Comment on above: Performed By: #### T SH, FT4, FT3 #### [facility] [address] [place] [address] Shop Manager: Thor Hernández MD #### AAFPM #### [facility] [address] [place] [address] Shop Manager: Thor Hernández MD [facility] [address] [place] [address] Shop Manager: Tim Vizcarra MD Gestat Age (exact) 16 wks, 4 days Normal [facility] Comment on above: Performed By: #### T SH, FT4, FT3 #### [address] [address] Shop Manager: Thor Hernández MD #### AAFPM #### [address] [address] Shop Manager: Thor Hernández MD [address] [phone] Shop Manager: Tim Vizcarra MD Ins Req Matern Diab No Normal [facility] Comment on above: Performed By: #### T SH, FT4, FT3 #### [address] [address] Shop Manager: Tohr Hernández MD #### AAFPM #### [address] [address] Shop Manager: Thor Hernández MD [address] [phone] Shop Manager: Tim Vizcarra MD Interpretation Screen Neg Normal [facility] Comment on above: Result Comment: (NOT E) INTERPRETATION: SCREEN NEGATIVE for open spina bifida Neural Tube Defects (NTD) Negative Pre-Test Post-Test Cutoff Neural Tube Defects Risks 1:452 1:3230 1:103 Comments: The risk of an open neural tube defect is less than the twin screening cut-off. This test was developed and its performance characteristics determined by [employer]. It has not been cleared or approved by the [place] Food and Drug Administration. This test was performed in a CLIA certified laboratory and is intended for clinical purposes. Performed By: #### T SH, FT4, FT3 #### [address] [address] Shop Manager: Thor Hernández MD #### AAFPM #### [facility] [address] [place] [address] Shop Manager: Thor Hernández MD [address] [phone] Shop Manager: Tim Vizcarra MD [age] [facility] Comment on above: Performed By: #### T , FT4, FT3 #### [facility] [address] [place] [address] Shop Manager: Thor Hernández MD #### AAFPM #### [facility] [address] [address] Shop Manager: Thor Hernández MD [address] [address] Shop Manager: Tim Vizcarra MD Maternal Race Nonblack [facility] Comment on above: Performed By: #### T SH, FT4, FT3 #### [facility] [address] [place] [address] Shop Manager: Thor Hernández MD #### AAFPM #### [address] [address] Shop Manager: Thor Hernández MD [address] [address] Shop Manager: Tim Vizcarra MD Maternal Weight 239.0 lbs. [facility] Comment on above: Performed By: #### T SH, FT4, FT3 #### [facility] [address] [place] [address] Shop Manager: Thor Hernández MD #### AAFPM #### [facility] [address] [address] Shop Manager: Thor Hernández MD [address] [address] Shop Manager: Tim Vizcarra MD MoM for AFP 1.71 Normal [facility] Comment on above: Performed By: #### T SH, FT4, FT3 #### [facility] [address] [place] [address] Shop Manager: Thor Hernández MD #### AAFPM #### [address] [address] Shop Manager: Thor Hernández MD [facility] [address] [place] [address] Shop Manager: Tim Vizcarra MD Number of Fetuses Twins Normal [facility] Comment on above: Performed By: #### T SH, FT4, FT3 #### [address] [address] Shop Manager: Thor Hernández MD #### AAFPM #### [address] [address] Shop Manager: Thor Hernández MD [address] [phone] Shop Manager: Tim Vizcarra MD Patient's AFP 46 ng/mL Normal [facility] Comment on above: Performed By: #### T SH, FT4, FT3 #### [address] [address] Shop Manager: Thor Hernández MD #### AAFPM #### [address] [address] Shop Manager: Thor Hernández MD [facility] [address] [place] [address] Shop Manager: Tim Vizcarra MD Smoking Unknown Normal [facility] Comment on above: Performed By: #### T SH, FT4, FT3 #### [address] [address] Shop Manager: Thor Hernández MD #### AAFPM #### [address] [address] Shop Manager: Thor Hernández MD [address] [address] Shop Manager: Tim Vizcarra MD Specimen See Note [facility] Comment on above: Result Comment: (NOT E) Initial sample Performed By: [employer] [address] [place] [address], [place] [address] [employer]uss Master Analyst: Morro Modi MD, PhD CLIA Number: [id number] Performed By: #### T SH, FT4, FT3 #### 00 [address] [address] Shop Manager: Thor Hernández MD #### AAFPM #### [address] [address] Shop Manager: Thor Hernández MD [address] [phone] Shop Manager: Tim Vizcarra MD [facility], [facility] 07-27-2023 Current Smoking INFORMATION NOT PROVIDED [facility] Comment on above: Performed By: #### T SH, FT4, FT3 #### [address] [address] Shop Manager: Thor Hernández MD #### AAFPM #### [address] [address] Shop Manager: Thor Hernández MD [address] [phone] Shop Manager: Tim Vizcarra MD [facility] Comment on above: Performed By: #### T SH, FT4, FT3 #### [address] [address] Shop Manager: Thor Hernández MD #### AAFPM #### [address] [address] Shop Manager: Thor Hernández MD [facility] [address] [place] [address] Shop Manager: Tim Vizcarra MD Diabetic Negative [facility] Comment on above: Performed By: #### T SH, FT4, FT3 #### [facility] [address] [place] [address] Shop Manager: Thor Hernández MD #### AAFPM #### [address] [address] Shop Manager: hTor Hernández MD [address] [phone] Shop Manager: Tim Vizcarra MD Donor Egg INFORMATION NOT PROVIDED [facility] Comment on above: Performed By: #### T SH, FT4, FT3 #### [address] [address] Shop Manager: Thor Hernández MD #### AAFPM #### [address] [address] Shop Manager: Thor Hernández MD [address] [phone] Shop Manager: Tim Vizcarra MD Estimated Due Date 01/06/2024 [facility] Comment on above: Performed By: #### T SH, FT4, FT3 #### [facility] [address] [place] [address] Shop Manager: Thor Hernández MD #### AAFPM #### [address] [address] Shop Manager: Thor Hernández MD [address] [phone] Shop Manager: Tim Vizcarra MD Family History Negative [facility] Comment on above: Performed By: #### T SH, FT4, FT3 #### [facility] [address] [place] [address] Shop Manager: Thor Hernández MD #### AAFPM #### [facility] [address] [place] [address] Shop Manager: Thor Hernández MD [facility] [address] [place], [place] [phone] Shop Manager: Tim Vizcarra MD In V[employer]ertal[employer] INFORMATION NOT PROVIDED [facility] Comment on above: Performed By: #### T SH, FT4, FT3 #### [facility] [address] [address] Shop Manager: Thor Hernández MD #### AAFPM #### [facility] [address] [address] Shop Manager: Thor Hernández MD [address] [address] Shop Manager: Tim Vizcarra MD LMP date 2023 [facility] Comment on above: Performed By: #### T SH, FT4, FT3 #### [facility] [address] [place] [address] Shop Manager: Thor Hernández MD #### AAFPM #### [address] [address] Shop Manager: Thor Hernández MD [facility] [address] [place], [place] [phone] Shop Manager: Tim Vizcarra MD Maternal date 1990 [facility] Comment on above: Performed By: #### T SH, FT4, FT3 #### [facility] [address] [place] [address] Shop Manager: Thor Hernández MD #### AAFPM #### [facility] [address] [place] [address] Shop Manager: Thor Hernández MD [facility] [address] [place] [address] Shop Manager: Tim Vizcarra MD Maternal Weight 239 Normal [facility] Comment on above: Performed By: #### T SH, FT4, FT3 #### [facility] [address] [place] [address] Shop Manager: Thor Hernández MD #### AAFPM #### [address] [address] Shop Manager: Thor Hernández MD [facility] [address] [place] [address] Shop Manager: Tim Vizcarra MD Monochorionic Twins Positive Normal [facility] Comment on above: Performed By: #### T SH, FT4, FT3 #### [address] [address] Shop Manager: Thor Hernández MD #### AAFPM #### [address] [address] Shop Manager: Thor Hernández MD [facility] [address] [place] [address] Shop Manager: Tim Vizcarra MD Patient Weight Units LBS Normal [facility] Comment on above: Performed By: #### T SH, FT4, FT3 #### [facility] [address] [place] [address] Shop Manager: Thor Hernández MD #### AAFPM #### [address] [address] Shop Manager: Thor Hernández MD [facility] [address] [place] [address] Shop Manager: Tim Vizcarra MD Race (Maternal) Normal [facility] Comment on above: Performed By: #### T SH, FT4, FT3 #### [address] [address] Shop Manager: Thor Hernández MD #### AAFPM #### [address] [address] Shop Manager: Thor Hernández MD [address] [phone] Shop Manager: Tim Vizcarra MD Repeat Specimen INFORMATION NOT PROVIDED [facility] Comment on above: Performed By: #### T SH, FT4, FT3 #### [address] [address] Shop Manager: Thor Hernández MD #### AAFPM #### [address] [address] Shop Manager: Thor Hernández MD [address] [phone] Shop Manager: Tim Vizcarra MD Valproic/Carbamazep INFORMATION NOT PROVIDED [facility] Comment on above: Performed By: #### T SH, FT4, FT3 #### [address] [address] Shop Manager: Thor Hernández MD #### AAFPM #### [address] [address] Shop Manager: Thor Hernández MD [address] [address] Shop Manager: Tim Vizcarra MD Thyroxine, Freeon 07-27-2023 Thyroxine, Free 1.0 ng/dL Normal 0.92-1.68 [facility] Comment on above: Performed By: #### T SH, FT4, FT3 #### [address] [address] Shop Manager: Thor Hernández MD #### AAFPM #### [address] [address] Shop Manager: Thor Hernández MD [address] [address] Shop Manager: Tim Vizcarra MD Protein,Tot,[place] [facility] 2023 Creatinine [Mass/Vol] 273.0 mg/dL High 28.0-217.0 [facility] Comment on above: Performed By: #### U RTPRT #### [address] [address] Shop Manager: Thor Hernández MD Tot Prot. Conc. 21 mg/dL Normal [facility] Comment on above: Result Comment: No n ormal range established. Performed By: #### U RTPRT #### [address] [address] Shop Manager: Thor Hernández MD TP/Cre Ratio 0.08 Normal [facility] Comment on above: Performed By: #### U RTPRT #### [address] [address] Shop Manager: Thor Hernández MD T3, Freeon 9 Free T3 [Mass/Vol] 3.40 pg/mL Normal 2.00-4.40 [facility] Comment on above: Performed By: #### T SH, FT4, FT3 #### [address] [address] Shop Manager: Thor Hernández MD #### AAFPM #### [address] [address] Shop Manager: Thor Hernández MD [facility] [address] [place] [address] Shop Manager: Tim Vizcarra MD Thyroid Stim. Horm.on 2023 Thyroid Stim. Horm. <0.01 Low 0.27-4.20 [facility] Comment on above: Performed By: #### T SH, FT4, FT3 #### [facility] [address] [place], [place] [phone] Shop Manager: Thor Hernández MD #### AAFPM #### [facility] [address] [place], [place] [phone] Shop Manager: Thor Hernánedz MD [facility] [address] [place] [address] Shop Manager: Tim Vizcarra MD ED Note-Physicianon 05-14-19 ED [...] see dentistry until she is cleared by [facility]. She does not have an appointment for [facility] to next week. She has no OB [...] day(s), # 15 tab(s), Refills(s) 0, Pharmacy: [facility], 160, cm, 05/13/23 11:33:00 EST, Height/Length [...] Oral, q6hr Follow-up With When Contact Information [email or web address] [facility] In 3 days 05/16/2023 EDT [address] [place] [address] Business (1) Additional Instructions: Dentistry follow-up Patient [...] made to ensure accuracy, however, inadvertently computerized haulage engine operator mistakes may be present. Appropriate healthcare PPE was used in evaluating this patient. Problem List/Past Medical History Ongoing Acute hepatitis C Anxiety Apnea, sleep Dental caries PCOS (polycystic ovarian syndrome) Historical No qualifying data Procedure/Surgical History Delivery. Medications Inpatient ampicillin-sulbacta m additive + Sodium Chloride 0.9% intravenous solution 100 (more content not included)... Normal [facility] Comment on above: Result Comment: Elec tronically Signed By: Greg Stratton PA-C\.br\Date and Time Signed: 05/13/23 12:45 EST\.br\Electronically Co-Signed By: Jonathan Martinez DO\.br\Date and Time Co-Signed: 05/14/23 07:40 EST Consent for Treatmenton Consent for Treatment [id number] EC#1.00TIFF Normal [facility] Discharge Instructionson Discharge Instructions [id number] 53#1.00TIFF Normal [facility] ED Clinical Summaryon 2023 ED Clinical Summary [place] [id number] ED Clinical Summary Person Information Name: TIA MONROE Maria Elena/[facility] Age: 33 Years : 1990 Sex: Female Language: Omani PCP: Linda Sheppard DO Marital Status: Visit [...] 13:02:19 05/13/2023 13:02:19 05/13/2023 13:02:19 ADDRESS: [address] [facility] [id number] PHYS DOC NOTES: MEDICAL INFORMATION: Prescriptions Given: New Medications [facility], [address] [place], [place] [id number], [phone] oxycodone (oxyCODONE 5 mg Tab) 1 Tablets [...] Dental Abscess Follow up: With: Address: When: [address] [address] Business (1) In 3 days 05/16/2023 Comments: Dentistry follow-up DIAGNOSIS: Dental abscess Normal [facility] ED Patient Education Noteon 05-13-2023 ED [...] these instructions at home: Medicines ? Take ojqp-xlk-hiyheuw and prescription medicines only as told by [...] (more content not included)... Normal [facility] ED Patient Summaryon 024 ED Patient Summary [address] [address] Patient Discharge Instructions Person Information Name: TIA MONROE Age: 33 Years Arrival Date: 05/13/2023 11:19:01 Discharge Diagnosis: Dental abscess Primary Care Physician: Linda Sheppard DO Provider Information Primary Provider: Jonathan Martinez DO Advanced Executive Director Of Nursing:Greg Stratton PA-C The exam and treatment you received in the Emergency Department were for an urgent problem and are not intended as complete care. It is important that you follow up with a doctor, nurse practitioner, or physician?s rehab care assistant for ongoing care. If your symptoms become worse or you do not improve as expected and you are unable to reach your usual health care provider, you should return to the Emergency Department. We are available 24 hours a day. TIA MONROE has been given the following list of patient education materials, prescriptions and follow-up instructions: Follow-up Instructions: With: Address: When: [email or web address] [address] [address] Business (1) In 3 days 05/16/2023 Comments: Dentistry follow-up In the event that this physician does not participate in your insurance network, please consult with your insurance company to find a nearby participating provider. Patient Education Materials: Dental Abscess A MESSAGE TO ALL PATIENTS REGARDING OPIOIDS PRESCRIPTION OPIOIDS: WHAT YOU NEED TO KNOW Prescription opioids can be used to help relieve adjgyczp-bf-axkahb pain and are often prescribed following a [...] be struggling with addiction, tell your health patient care secretary and ask for guidance or call [facility] National Helpline at 1-162-1 (more content not included)... Normal [facility] Discharge Instructionson Discharge Instructions [id number]#1.00TIFF Normal [facility] ED Clinical Summaryon 2023 ED Clinical Summary [place] [id number] ED Clinical Summary Person Information Name: TIA MONROE Maria Elena/[facility] Age: 33 Years : 1990 Sex: Female Language: Omani PCP: Linda Sheppard DO Marital Status: Visit [...] 05/11/2023 23:59:00 05/11/2023 23:59:00 ADDRESS: [address] [facility] [id number] PHYS DOC NOTES: MEDICAL INFORMATION: Prescriptions Given: New Medications [facility], [address] [place], [place] [id number], [phone] amoxicillin-clavula cindi (Augmentin 875 mg oral tablet) [...] Medication PATIENT EDUCATION INFORMATION: Instructions: Dental Pain, Mllc-wf-Oklb Follow up: With: Address: When: Linda Sheppard DO, [address] [place] [address] In 3 days 05/14/2023 DIAGNOSIS: 1:Pain, dental; 2:Infected dental caries; 3:First trimester ; Periapical abscess without sinus Normal [facility] ED Note-Physicianon 05-12-19 ED Note-Physician Basic Information Time Seen: Violet Walters PA-C 05/11/2023 22:59 Chief Complaint pt arrives for c/o dental pain on the right upper side. states cannot see her denitist d/t being . pt states seen in [facility] and started on amoxcillin. History of Present Illness Patient is a 7-week 33-year-old female with history of PCOS that presents to the ED with her for evaluation of dental pain. Patient says pain started on Tuesday. She localizes it to the right upper jaw, radiates into her face ear and cheek. She went to [facility] yesterday and was initiated on amoxicillin [...] day(s), # 14 tab(s), Refills(s) 0, Pharmacy: [facility], 160, cm, 05/11/23 21:53:00 EST, Height/Length Dosing, 110, kg, 05/11/23 21:53:00 EST, Weight Dosing chlorhexidine topical, 0.018 gm, 15 mL, Oral, BID, 480 mL, Refill(s) 0, (swish and spit; do not swallow), [facility], 160, cm, 05/11/23 21:53:00 EST, Height/Length Dosing, 110, kg, 05/11/23 21:53:00 EST, Weight Dosing (more content not included)... Normal [facility] Comment on above: Result Comment: Elec [...] these instructions at home: Medicines ? Take dxzf-eox-rvwlrae and prescription medicines only as told by [...] to the area. Brushing your teeth ? [place] your teeth twice a day using a [...] when you eat or drink. ? Take sroq-tkl-cwxbcab and prescription medicines only as told by [...] Reviewed: 11/26/2020 Elsevier Patient Education ? 2022 [employer] Normal [facility] ED Patient Summaryon 024 ED Patient Summary [address] [address] Patient Discharge Instructions Person Information Name: TIA MONROE Age: 33 Years Arrival Date: 05/11/2023 21:25:54 Discharge Diagnosis: 1:Pain, dental; 2:Infected dental caries; 3:First trimester ; Periapical abscess without sinus Primary Care Physician: Linda Sheppard DO Provider Information Primary Provider: Zac Fields M.D. Advanced Executive Director Of Nursing:Violet Walters PA-C The exam and treatment you received in the Emergency Department were for an urgent problem and are not intended as complete care. It is important that you follow up with a doctor, nurse practitioner, or physician?s rehab care assistant for ongoing care. If your symptoms [...] Instructions: With: Address: When: Linda Sheppard DO [address] [place] [address], Amelie C, [facility] [address] [place], [place] [phone] In 3 days 05/14/2023 In the event that this physician does not participate in your insurance network, please consult with your insurance company to find a nearby participating provider. Patient Education Materials: Dental Pain, Pjgb-me-Qiuo A MESSAGE TO ALL PATIENTS REGARDING OPIOIDS PRESCRIPTION OPIOIDS: WHAT YOU NEED TO KNOW Prescription opioids can be used to help relieve xjqnnsaw-ko-xpmqgf pain and are often prescribed following a [...] be struggling with addiction, tell your health patient care secretary an (more content not included)... Normal [facility] Consent for Treatmenton Consent for Treatment [id number] 96#1.00TIFF [facility] Progesteroneon 12-28-2022 Progesterone 12.60 ng/mL Normal [facility] Comment on above: Result Comment: Female: Follicular phase <0.19 ng/mL Ovulation phase 0.06-4.14 ng/mL Luteal phase 4.11-14.5 ng/mL Postmenopausal <0.13 ng/mL Performed By: #### P NICKY #### [facility] [address] [place] [address] Shop Manager: Thor Hernández MD Progesteroneon 11-24-2022 Progesterone 7.18 ng/mL High 0.0-0.15 [facility] Comment on above: Result Comment: Female: Follicular phase <0.19 ng/mL Ovulation phase 0.06-4.14 ng/mL Luteal phase 4.11-14.5 ng/mL Postmenopausal <0.13 ng/mL Performed By: #### P NICKY #### [facility] [address] [place] [address] Shop Manager: Thor Hernández MD , Urineon HCG ( test) Ql (U) Negative NEGATIVE [facility] XR ANKLE RIGHT (MIN 3 VIEWS) on 09-04-2022 FINDINGS/IMPRESSION : No acute displaced fracture identified. Ankle mortise is symmetric. There is a 1 mm tiny calcified body which is remote appearing near the distal fibular tip. Minimal ankle soft tissue edema. [facility] EXAM: XR ANKLE RIGHT (MIN 3 VIEWS) INDICATION: Reason for exam:->swelling COMPARISON: None. TECHNIQUE: Radiographs as described above [facility] Bettye Johnson MD - 09/04/2022 EXAM: XR ANKLE RIGHT (MIN 3 VIEWS) INDICATION: Reason for exam:->swelling COMPARISON: None. TECHNIQUE: Radiographs as described above IMPRESSION: FINDINGS/IMPRESSION : No acute displaced fracture identified. Ankle mortise is symmetric. There is a 1 mm tiny calcified body which is remote appearing near the distal fibular tip. Minimal ankle soft tissue edema. [facility] Radiology Study observation (narrative) [facility] XR ANKLE RIGHT (MIN 3 VIEWS) Ordered By: Bettye Johnson on 09-04-2022 [facility] Work Phone: Coding Summary.on 07-09-2022 Coding Summary. CD:[id number] bWw+PGhlYWQ+XJ5EHTA fB50wmJZjkZ4eI9CSNG lOSywgQVBQTElOSyIgb jEmGN4rnHRwOUSo IC8+JT6rLIWnScayzKG kn3H7xPP3K42xxw9fMY ouzBJ9MCJnArGgrlnpr 6xtqXh2TUemAzylOeHc MHRqxJ67WIH8xF99Uq2 7pGGifBZht0nxjHv3Ls ZoGQNjSYR2nNghOYczo 1IhFIRwF42ruTEko1D8 IGNvbGxhcHNlOyBlbXB 5zE3cETxwosdaw7bkom fmRav6rp86sBIsr9Q6p MG1H4AzznU2GEQueZQh PgqstMLIfX9qrqzng2r heieyNySuANAtZNk5EC v4WYCfbHeaCrKuHI47L IP7LPAhxxPvN9IoSGDv uWwxCgW0j0A1Hy3UG6R LBdnlG7PHDGJFNHmmfY Q+UX45pf07U7DiWgkoZ wb2ZXJeNYE7uJL5qB7b GPSiEBdvq8L3hTL4W3Z ihsPjkc1bm7yvVFRdJT mdU61scNZez9S6AADxx RJ5RDNtqIhnGePwyN86 Oyc+TMVyzDimd5JiCdq xt1nrx9amsOv1JndmYP GmhzPpqRtePVV6h2KnQ e4cRUGtsHM1gWR4sQ5j HkYhPqA1XIfnU754IgD vwDWuAbncB69kO7QvjM A+OSLxKcm3SBSwcKtaD W2lM7LaAUWmligamOKi sHdaPH9iLXIcsbjmLQM ffG5xEQHiQ2m8VqJcYx Y2QObqG4BxHQCfyffqR l13wE2dEuCfBgT7QFwf V3UrwzO5HEHdxUMuOTu zXJI9D25oy4T6RZZfRA EvMZL4qXI9aL6xcFczg jogbGVmdDsgdmVydGlj SWkkSFgyS829INKdoZw nPkNvZGluZyBEYXRlOi AgMDUvMDUvMjAyMzwvd GQ+LAZjCHV9vUgeRBJw yOObGCwqFd5wtUawgKg gGZ5kYGTzvulcIFNlrR 9yJMWuuHRceSoxKA8yJ KXrtrsap122OnRbEQH5 JEFbmQIhX3YwgI9jQoF kCRVkXKGuA8EqjUPtQE lfG045OIgoSeK0MUYff sGmD2VzVHPhsAayGiS0 a2F7Ej4St6IffipwG0P nlYAuDgQlOkflTUz5D2 RkPjwvdHI+CM03EYJaW G91SNp3NXW0dFwjNPin ZWXkS6TmyS2nUjEdVPE kZGRkOyc+PHRhYmxlIH dpZHRoPScxMDAlJyBzd DfzMR1wMd2vLWYcMFEz rPsieUKrUuGbg0fhMAQ hGXlmTQ2cbJunZ2LhmE O4PJFzl5h1Wz94S83eZ 3JvdXA+KNWmfYL8eUH6 nI0rZlByZhH3CYxfR36 6VrJpcAHcVtnij6idq6 qsfHm9HrH0JEIiqpTcf UmnHIT6c4NqRx46C26g IHdpZHRoPSIxNSUiIHZ jwDxhss0zhY7hJr9+PG MrmUC8vAR8bA1aAiThW lS2SWkvL818XyYkaXPy Hkncn0gdk9bogCz4IeA iWPMmqvYwjQmwZPK7a4 TxUl19I5HboMzxv8RqZ pv3mp09cWMxp6I2pWF2 D3JoSEEptkevaHWxkOm tIU9vHAKpceacAWDrkV 6jORSxV3l0VcTfTtV2I SgvB3QwyvU3IFAebAUr SRXsrBLXzM1izkfaq2b tdoyzBcKxHZFbRFy5EZ a8TPJgiKwyOpBqYRV2Y dT2YSX4lRHjhQ9eyZrf dhkwvB0xTtt+XYG7wRO htJMSNU8nZdnkfCN+PH VqYCW8dZuvJYuwHNMey N2zVLCtF9p4XyZoVkF2 XYfgP9YsfyH4PASdqAY wXRExxWGNfV6phqdyx3 lfvwtbTvMvMXBtXJb0R Ci5NEZstIadNqAcGWV6 PkI5AGY0uFNxlD8fgXq bgtomfX0aPed+QmlydG hgOWB4KUl9E0DpBgd1H DUdcGgsAU1hcBWuAOrn Ke5dxAttyDueDD7fXAS qmzceo714BhYor3zsHW IviQCxYNorFQW7B51vl 2Y8OYMoBVCfPTC3iMV0 qV7ofDydxerhzLVmnLc gdmVydGljYWwtYWxpZ2 47BIXlvTrgQqVlUWx3O 7TnPon6NODhaGrzND3f yCMbUMycCk4auBcwpIv kXO6xGVQmtozru916Bm Fvk2hsCSPenBSqPSazU ME4C11xc8J1FZXcMPJl CEP9wHD3iE2yjKzfpfa gbGVmdDsgdmVydGljYW lbKCjfS373GQMmyBthG uSdeAs7D3NnHlu3WGEh zNhbBD5zwWWxLIznNb1 vmIvzxCsxUQ3yONRpwj lxm827GpOvn6nhTHTni WKoHDjeNBV4A54rl2Q9 EWGcXZFbZAS2wYT0eI6 hbGlnbjogbGVmdDsgdm FhzPzaNElgMEdcM953F HRvcDsnPlBhdGllbnQg ITipSFq7S6GuHhskoDN +LA44DAMwCE94tZDsaI Opw0xwmZq6XsYzQOJrJ TK0sJevNAhip2LuIBBv J45nmCMfw0Z3TQTltOu enQWdFmRthEB7dX1gXS fowefsn3zhrqtxLgaiy 9vebq31rA82J57jUUpl ZHRoPSIzMCUiIHZhbGl bso6suV9jWe5+PGNvbC P9lFY6zH7rZXSzYuY7Q RnhA059CpNjiMDjRvax j1uih1fepBr1KkO2GYP juaDopCclWJE1l4NpLk 46L70iPLnlPKDgPGZlB TMeNYTtuJnwel7sdZ5g Ii8+HNXmkNT1eXS5qU9 iZjQrYqF8SKesX780Bu KehSAeDeaxY05eX7Hdb XA+DRBdUmg9UIUedIjo ZI1elHLyFWdoLp4fBAK 1WlTaZrXuGYirP4RqRE MelprwiwttgQI5ETMuO ZZvyR70Se9ikHfdMYSg lLIRrM0damazd2kayxc pQcCzYKXdHYg5BZd3CO CsuXebKnPeKVA8HbK8U RZ5cOUauA9xcWbxskjy sK1zY9PaGBXbikhuAv3 9qP5mPkToVrF7PTroRr c+Np7KBqUNVvtbNsJIM kRJRTwvdGQ+PHRkIHN0 pJheOGtjNIDpeM9zVYX fC7h5JdZsRiI5CLreI7 EmLZXwsdvhCe89lD0tE wWfIoE0LAkoO0JxbhZ0 NMPtsFHcDVbnMYZ7A49 hh9P8EGNqFORgXAN1dL F4wM1ixDridmszbMPxp DsgdmVydGljYWwtYWxp Y674FNRooYorKmWrUyA 1OpS9FEP5I1AlCne2XA JneJayBU1onFZuZEyyB c1qmAynrKzwCI9bUERe upbzLRAwiA6kYUAnvIG huHiiQZ5cBGPdskqhy7 08HcLjPCY0KVSfwJVbX 9MmaZ2cAtUmEBAsQHCy A4NxcVWkWTmqC570FQd sJjO0RSXqioGiY7ZxMJ JgdFiyKxU9w8P5Hl2bJ iBZZWFyczwvdGQ+PHRk DRM4wQgyJFcqVBJldG8 mQBGfL0b2EdPhFkP8MO ptO9HyMSLnoyakGk07a I5yGjBpIsH5HVsmD3Uj pmY4NLYsqAVoWBboMPS 9Y93hl9R3AVJcCLNfEN U5pHD8kD1akOkjzinwl GVmdDsgdmVydGljYWwt FNwoG287GTFmgUkyOfJ lbWFsZTwvdGQ+PHRkIH A4nNniZNffWXAvkT6wM QQqE3s2RhBfQpT5ZDdy M7LqZCHxjtfnRb05mX6 jFfQiOsB1SDxnF4Yywn X7FSAhsQXuIIjkKHF7Q 34eq4D4JPPdZKRmAPQ9 dMH0vK2afXuupwaqdSX mdDsgdmVydGljYWwtYW buW889HVIvpOwnNsWcy H2zAXWrVGvzfDIxtYag dGQ+KW53uq19B7VuFdk vPjz6ENRqKPI2hGR8yV 5sJFFaEEhjf1N0tBM9N 5DbwlGmux1ug0xjHGOa VBqzX62gjNCgm1A9FJS rlFE3NHMdjMhtEbGodI 93Oyc+YOHwdJohf1EkS uxpm3nrf9hifFe3AdAs KKNyfrVvpXjnZYD7a9Q kHh03H44wOXjpZZEiVQ EzNEHrZIZudZqslr2fu G9wIi8+DZYtvKE6iUL5 iW1yKwLpZmM8IVntQ01 6FdIbpLApCbidn1hhw8 rpkBv1VpFvRLAcugFzw JtoKXS1b5CgTi75A3Qo eCoqw4PsZwd9jv73qJZ ud5Y4zTB0H7YqYOOqbi pmtNWduKmzTJ5cYXKkv nsqUAIwgT6wIWAmT6o4 BvOtLyT9CDogA5FmhcR 6IGJvbGQgMTBwdCBUaW 4fhmmpi5frauwuAoZtA KPcWPv9YJd5HEQlrZeq ObTgXIR2RbZ0KRD1aGQ adJ0swXhceondwG8sAj c+PNj7h8fbuFQiYL0be DI9VR61KY99xGFpo7I4 vRX4M5DoEDOtcmrwciy iuOP6LPGiZTUueS32Qp 7paNajPq3cQMYdJBJ4F FVbaFPzV1IlqU9tYpXk SIJlLHLoP0RgyHChLLu iH250KAvaScF4URFjfk WaR8YcTIOtlYapSnA1q 0B2Ty2LCD41DC40WC51 wDXch6Q9oEP1W8OvMCV tbnihzpspjMR6LNCkPJ UujZ18Fz0knYfnGp3mJ EJuYRQ6ARRvnQLjW6Tc aT5bHiWwPNStVMBjY0N qqPLwLIkkV741RBefLp R0KSZynlIpL5YbISNvh UiuYtO7d0S5Zw2PNl23 XL68FI56hILaw0S2yVP 1P3ElKFFnjrmxswptrH R8DJGeXBJnfO23Zl2xy YwaQz6dONMbSQQ5IBGo aKPkW6KwbN1hQpXvUNY eOEDsN9KmqNPoVZgmL4 87SJahRwU8ZDTebuRxQ 9XkBFRzzMrbKgC7l7S9 Ao4GDJtfkgv0P5QbHcb vdHI+RU11JDIvHW27nQ CihXCux8rqqYq3XuBcG LJcXLU9yOnhDNxfg1Ir GZTrZ47h (more content not included)... Normal [facility] Consultation Noteon 07-07-19 Consultation Note Patient: [...] Problems Acute hepatitis C / SNOMED CT 935054848 / Confirmed Anxiety / SNOMED CT 37937628 / Confirmed Apnea, sleep / SNOMED CT 604280535 / Confirmed Dental caries / SNOMED CT 045699980 / Confirmed PCOS (polycystic ovarian syndrome) / SNOMED CT 731366922 / Confirmed Histories Past Medical History: Active Dental caries ([id number]) Family History: No family history items have [...] with plan of care. Normal [facility] Comment on above: Result Comment: Elec tronically Signed By: Bing PEDRAZA, Todd Lilly\.br\Date and Time Signed: 07/06/22 13:28 EDT DHEA SERUMon 07-04-2022 Dehydroepiandrosterone (DHEA) 220 ng/dL Normal 31-701 [facility] Comment on above: Performed By: #### D KAN. ####[facility] [id number] [place], [place] [address] Layneshivam Daniel DHEA-SULFATEon 06-30-2022 DHEA-Sulfate 106.0 ug/dL Normal 84.8-378.0 [facility] Comment on above: Performed By: #### D DEEPTI ####[facility] [id number] [address]Dr. Nito Sanchez FSHon 06-30-2022 FSH 6.6 mIU/mL Normal [facility] Comment on above: Result Comment: Adul t Female: Follicular phase 3.5 - 12.5 Ovulation phase 4.7 - 21.5 Luteal phase 1.7 - 7.7 Postmenopausal 25.8 - 134.8 Performed By: #### [facility] #### [facility] [address] [address] [address] Nito Sanchez LUTEINIZING HORMONE (LH)on 0 06-30-2022 LH 18.9 mIU/mL Normal [facility] Comment on above: Result Comment: Adul t Female: Follicular phase 2.4 - 12.6 Ovulation phase 14.0 - 95.6 Luteal phase 1.0 - 11.4 Postmenopausal 7.7 - 58.5 Performed By: #### L BCLH #### [facility] [address] [place] [address] Dr. Nito Sanchez PROLACTINon 06-30-2022 Prolactin 5.3 ng/mL Normal 4.8-23.3 [facility] Comment on above: Performed By: #### P ROLAC #### [facility] [address] [address] [address] Nito Sanchez CBC AUTO DIFFon 06-29-2022 BASO # 0.1 103/ul Normal 0.0-0.1 [facility] Comment on above: Performed By: #### C BC #### [facility] [address] [address] [address] Nito Sanchez Basophils/100 WBC (Bld) 0.5 % Normal 0.2-2.0 [facility] Comment on above: Performed By: #### C BC #### [facility] [address] [address] [address] Nito Sanchez EO # 0.2 103/ul Normal 0.0-0.7 [facility] Comment on above: Performed By: #### C BC #### [facility] [address] [place] [address] Dr. Nito Sanchez Eosinophils/100 WBC (Bld) 1.6 % Normal 0.9-7.0 [facility] Comment on above: Performed By: #### C BC #### [facility] [address] [place] [address] Dr. Nito Sanchez Erythrocyte distribution width (RBC) [Ratio] 13.6 % Normal 11.0-15.0 [facility] Comment on above: Performed By: #### C BC #### [facility] [address] [place] [address] Dr. Nito Sanchez Hematocrit (Bld) [Volume fraction] 39.7 % Normal 36.0-48.0 [facility] Comment on above: Performed By: #### C BC #### [facility] [address] [place] [address] Dr. Nito Sanchez Hemoglobin (Bld) [Mass/Vol] 13.1 g/dL Normal 12.0-16.0 [facility] Comment on above: Performed By: #### C BC #### [facility] [address] [place] [address] Dr. Nito Sanchez IG # 0.05 10e3/ul Critically high 0.00-0.03 [facility] Comment on above: Performed By: #### C BC #### [facility] [address] [place] [address] Dr. Nito Sanchez IG % 0.5 % Normal 0.0-0.5 [facility] Comment on above: Performed By: #### C BC #### [facility] [address] [place] [address] Dr. Nito Sanchez LYMPH # 2.6 103/ul Normal 1.2-3.8 [facility] Comment on above: Performed By: #### C BC #### [facility] [address] [place] [address] Dr. Nito Sanchez Lymphocytes/100 WBC (Bld) 25.3 % Normal 20.5-60.0 [facility] Comment on above: Performed By: #### C BC #### [facility] [address] [place] [address] Dr. Nito Sanchez MANUAL DIFF REQ NO Normal [facility] Comment on above: Performed By: #### C BC #### [facility] [address] [place] [address] Dr. Nito Sanchez MCH (RBC) [Entitic mass] 27.1 pg Normal 26.7-34.0 [facility] Comment on above: Performed By: #### C BC #### [facility] [address] [place] [address] Dr. Nito Sanchez MCHC (RBC) [Mass/Vol] 33.0 g/dL Normal 29.9-35.2 [facility] Comment on above: Performed By: #### C BC #### [facility] [address] [place] [address] Dr. Nito Sanchez MCV (RBC) [Entitic vol] 82.2 fL Normal 81.0-99.0 [facility] Comment on above: Performed By: #### C BC #### [facility] [address] [place] [address] Dr. Nito Sanchez MONO # 0.5 103/ul Normal 0.3-0.8 [facility] Comment on above: Performed By: #### C BC #### [facility] [address] [place] [address] Dr. Nito Sanchez Monocytes/100 WBC (Bld) 5.0 % Normal 1.7-12.0 [facility] Comment on above: Performed By: #### C BC #### [facility] [address] [place] [address] Dr. Nito Sanchez NEUT # 6.9 103/ul Critically high 1.4-6.5 [facility] Comment on above: Performed By: #### C BC #### [facility] [address] [place] [address] Dr. Nito Sanchez Neutrophils/100 WBC (Bld) 67.1 % Normal 43.0-75.0 [facility] Comment on above: Performed By: #### C BC #### [facility] [address] [place] [address] Dr. Nito Sanchez Platelet mean volume (Bld) [Entitic vol] 10.0 fL Normal 9.5-13.5 [facility] Comment on above: Performed By: #### C BC #### [facility] [address] [place] [address] Dr. Nito Sanchez PLT 313 103/ul Normal 150-450 [facility] Comment on above: Performed By: #### C BC #### [facility] [address] [place] [address] Dr. Nito Sanchez RBC 4.83 106/ul Normal 4.20-5.40 [facility] Comment on above: Performed By: #### C BC #### [facility] [address] [place] [address] Dr. Nito Sanchez WBC 10.3 103/ul Normal 4.0-11.0 [facility] Comment on above: Performed By: #### C BC #### [facility] [address] [place] [address] Dr. Nito Sanchez Consent for Treatmenton 06-06 Consent for Treatment [id number] 650#1.00CD:127 Normal [facility] FREE T4on 06-29-2022 Free T4 [Mass/Vol] 1.01 ng/dL Normal 0.76-1.46 [facility] Comment on above: Performed By: #### F T4 #### [facility] [address] [place] [address] Dr. Nito Sanchez GLYCOHEMOGLOBIN A1Con 2022 ADA RECOMMENDATION SEE BELOW Normal [facility] Comment on above: Result Comment: ADA RECOMMENDED LIMIT 4.0 - 6.0 ADA THERAPEUTIC TARGET < 7.0 ACTION SUGGESTED > 7.0 Performed By: #### A 1C #### [facility] [address] [place] [address] Dr. Nito Sanchez Glucose [Mass/Vol] 108 mg/dL Normal [facility] Comment on above: Performed By: #### A 1C #### [facility] [address] [place] [address] Dr. Nito Sanchez HbA1c (Bld) [Mass fraction] 5.4 % Normal 4.5-6.2 [facility] Comment on above: Performed By: #### A 1C #### [facility] [address] [place] [address] Dr. Nito Sanchez HIPAA Forms Officeon 023 HIPAA Forms Office [id number] 602#1.00CD:127 Normal [facility] Legal Correspondence Officeo n 06-29-2022 Legal Correspondence Office [id number] 270#1.00CD:127 Normal [facility] Legal Correspondence Office [id number] 787#1.00CD:127 Normal [facility] Office/Clinic Note-Physician on 06-29-2022 Office/Clinic Note-Physician [id number] 515#1.00CD:127 Normal [facility] Orders Officeon 06-29-2022 Orders Office [id number] 642#1.00CD:127 Normal [facility] PREG QUANT HCGon 06-29-2022 HCG QUANT 1 mIU/mL Normal [facility] Comment on above: Performed By: #### T BERNICE, PREGQNT #### [facility] [address] [place] [address] Dr. Nito Sanchez HCG RANGE SEE BELOW Normal [facility] Comment on above: Result Comment: 5-50 0.2-1 WEEK 50-500 1-2 WEEKS 100-5,000 2-3 WEEKS 500-10,000 3-4 WEEKS 1,000-50,000 4-5 WEEKS 10,000-100,000 5-6 WEEKS 15,000-200,000 6-8 WEEKS 10,000-100,000 2-3 MONTHS Performed By: #### T SH, PREGQNT #### [facility] [id number] Nito Sanchez Patient Correspondenceon Patient Correspondence [id number] 946#1.00CD:127 Normal [facility] Patient Correspondence [id number] 137#1.00CD:127 Normal [facility] Patient Correspondence [id number] 273#1.00CD:127 Normal [facility] Patient Correspondence [id number] 879#1.00CD:127 Normal [facility] Patient Correspondence [id number] 956#1.00CD:127 Normal [facility] Patient History Officeon Patient History Office [id number] 983#1.00CD:127 Normal [facility] Patient History Office [id number] 721#1.00CD:127 Normal [facility] Radiology Outside Office [employer] Vertical yon 06-29-2022 Radiology Outside Office Copy [id number] 142#1.00CD:127 Normal [facility] TSHon 06-29-2022 TSH 0.848 uIU/mL Normal 0.358-3.740 [facility] Comment on above: Performed By: #### T SH, PREGQNT #### [facility] [address] [address] [address] Nito Sanchez US PELVIS AND TRANSVAGon [...] ormed at: WB Performed By: #### [id number] #### [facility] [address] [address] [address] Nito Sanchez Age Gdln ACOG Testing 30-65 Normal [facility] Comment on above: Performed By: #### 4 [id number] #### [facility] [address] [address] [address] Nito Sanchez DIAGNOSIS: Comment Normal [facility] Comment on above: Result Comment: NEGA TIVE FOR INTRAEPITHELIAL LESION OR MALIGNANCY. Performed at: WB Performed By: #### [id number] #### [facility] [address] [address] [address] Nito Sanchez HPV Aptima Negative Normal Negative [facility] Comment on above: Result Comment: This nucleic acid amplification test detects fourteen high-risk HPV types (16,18,31,33,35,39,45,51,52,56,58,59,66,68) without differentiation. Performed at: =G Performed By: #### 4 [id number] #### [facility] [address] [address] [address] Nito Sanchez HPV Genotype Reflex Comment Normal [facility] Comment on above: Result Comment: Crit eria not met, HPV Genotype not performed. Performed at: WB Performed By: #### 4 [id number] #### [facility] [address] [place] [address] Dr. Nito Sanchez Methodology: Comment Normal [facility] Comment on above: Result Comment: This liquid based ThinPrep(R) pap test was screened with the use of an image guided system. Performed at: WB Performed By: #### [id number] #### [facility] [address] [place] [address] Dr. Nito Sanchez Note: Comment Normal [facility] [...] Performed at: WB Performed By: #### [id number] #### [facility] [address] [place] [address] Dr. Nito Sanchez Performed by: Comment Normal [facility] Comment on above: Result Comment: Nanda Treadwell, Director Compensation (ASCP) Performed at: WB Performed By: #### 4 [id number] #### [facility] [address] [place] [address] Dr. Nito Sanchez Specimen adequacy: Comment Normal [facility] Comment on above: Result Comment: Sati sfactory for evaluation. Endocervical and/or squamous metaplastic cells (endocervical component) are present. Performed at: WB Performed By: #### 4 [id number] #### [facility] [address] [place] [address] MAXILLOFACIAL WO CONTRAST on 05-11-2022 Recent extraction of the right mandibular and maxillary second molar teeth with presence of air in the respective tooth sockets. No evidence of edema in the sublingual space or the buccal space Probable periapical abscess involving the right maxillary premolar tooth adjacent to the first molar tooth. [facility] RIS CONSOLIDATED EXAM: CT MAXILLOFACIAL WO [...] intracranial contents show no acute process. [facility] Phil Romero MD - 05/11/2022 EXAM: [...] tooth adjacent to the first molar tooth. [employer] Work Phone: Radiology Study observation (narrative) [facility] Work Phone: CT MAXILLOFACIAL WO CONTRAST Ordered By: Phil Mary on 05-11-2022 [employer] Work Phone: Urine Preg (Lab)on 3 Beta HCG ( test) Ql (U) Negative NEGATIVE NICE HCG, Quantitative, on 03-29-2022 hCG Quant NINF [employer] Comment on above: Non-preg premeno <=5 Postmeno <=8 Male <=3 If HCG results do not concur with clinical observations, additional testing to confirm results is recommended. [facility] COVID-19, Rapidon 07-22-2021 SARS-CoV-2 (COVID-19) RNA KALPESH+probe Ql (Unsp spec) Not detected Not Detected [facility] Comment on above: Rapid NAAT: [...] management decisions. Fact sheet for Healthcare Providers: https://www.fda.gov/media/009675/download Fact sheet for Patients: https://www.fda.gov/media/774777/download Methodology: Isothermal Nucleic Acid Amplification Specimen Description .NASOPHARYNGEAL SWAB [facility] Strep Screen Group A Throato n 07-22-2021 S. pyogenes Ag Ql (Throat) Negative NEGATIVE [facility] Comment on above: Rapid Strep A negati ve. A negative Rapid Group A Strep Screen result does not rule out the possibility of Group A Streptococci in the specimen. A Group A Strep DNA test is available upon request. Source .THROAT SWAB [facility] MR LUMBAR SPINE WITHOUT CONTRAST [...] foraminal stenosis. 2. No fracture or spondylolisthesis. [facility] Workstation ID: [id number] Dictated by: JONATHAN LINARES on TueJun 18, 2021 11:51:00 AM EDT Transcribed by: ZULMA CARDENAS on TueJun 18, 2021 11:58:13 AM EDT Finalized by: JONATHAN LINARES on TueJun 18, 2021 12:35:45 PM EDT Normal [facility] Comment on above: Order Comment: Injur y/Trauma or Illness?:Illness/Other How long have you had these symptoms (acute/chronic)?:Chronic Reason for exam?:LBP AND bilat hip pain x years, nki Type of Exam?:Subsequent/Follow-up Additional signs and symptoms?:. CBC panel Auto (Bld)on 04-16 Erythrocyte distribution width (RBC) [Entitic vol] 14.0 % 11.6 - 14.8 % [facility] Hematocrit (Bld) [Volume fraction] 38.6 % 36.0 - 46.0 % [facility] Hemoglobin (Bld) [Mass/Vol] 12.1 g/dL 12.0 - 16.0 g/dL [facility] Interpretation and review of laboratory results Abnormal [facility] MCH (RBC) [Entitic mass] 25.4 pg Low 26. 0 - 34.0 pg [facility] MCHC (RBC) [Mass/Vol] 31.3 g/dL 31.0 - 37.0 g/dL [facility] MCV (RBC) [Entitic vol] 81.1 fL 80.0 - 100.0 fL [facility] Platelet mean volume (Bld) [Entitic vol] 10.0 fL 9.4 - 12.4 fL [facility] Platelets (Bld) [#/Vol] 379 10*3/uL [facility] RBC (Bld) [#/Vol] 4.76 10*6/uL [facility] WBC (Bld) [#/Vol] 9.85 10*3/uL [facility] Comprehensive metabolic 2000 panelon 04-16-2021 Albumin [Mass/Vol] 3.7 g/dL 3.2 - 5.2 g/dL [facility] ALP [Catalytic activity/Vol] 95 U/L 40 - 140 U/L [facility] ALT [Catalytic activity/Vol] 36 U/L 14 - 65 U/L [facility] Anion gap [Moles/Vol] 11 mmol/L 10 - 2 0 mmol/L [facility] AST [Catalytic activity/Vol] 22 U/L 0 - 45 U/L [facility] Bilirubin [Mass/Vol] 0.3 mg/dL 0.0 - 1 .3 mg/dL [facility] Calcium [Mass/Vol] 9.3 mg/dL 8.4 - 10. 2 mg/dL [facility] Chloride [Moles/Vol] 105 mmol/L 98 - 10 8 mmol/L [facility] Creatinine [Mass/Vol] 0.68 mg/dL 0.40 - 1.10 [facility] GFR/1.73 sq M.predicted CKD-EPI (S/P/Bld) [Vol rate/Area] 117 >=60 mL/min/1.73 m2 [facility] Glucose [Mass/Vol] 76 mg/dL 65 - 99 mg/dL [facility] HCO3 [Moles/Vol] 26 mmol/L 21 - 32 mmol/L [facility] Interpretation and review of laboratory results Normal [facility] Potassium [Moles/Vol] 4.2 mmol/L 3.5 - 5.1 mmol/L [facility] Protein [Mass/Vol] 7.5 g/dL 6.0 - 8.0 g/dL [facility] Sodium [Moles/Vol] 138 mmol/L 135 - 145 mmol/L [facility] Urea nitrogen [Mass/Vol] 13 mg/dL 8 - 25 mg/dL [facility] Urea nitrogen/Creatinine [Mass ratio] 19.1 mg/mg [facility] The eGFR should be used for monitoring renal function only and not for medication dosing. [facility] Lipid 1996 panelon 2 Cholesterol [Mass/Vol] 195 mg/dL 100 - 199 mg/dL [facility] Comment on above: National Cholesterol Education Program Guidelines: Cholesterol Desirable: <200 mg/dL Borderline High: 200-239 mg/dL High: greater than or equal to 240 mg/dL Cholesterol in HDL [Mass/Vol] 56 mg/dL 40 - 59 [facility] Comment on above: National Cholesterol Education Program Guidelines: HDL Cholesterol Low: <40 mg/dL Near Optimal: 40-59 mg/dL High: greater than or equal to 60 mg/dL Cholesterol in LDL [Mass/Vol] 109 mg/dL 10 - 130 mg/dL [facility] Comment on above: National Cholesterol Education Program Guidelines: LDL Cholesterol Optimal: <100 mg/dL Near Optimal/above Optimal: 100-129 mg/dL Borderline High: 130-159 mg/dL High: 160-189 mg/dL Very High: greater than or equal to 190 mg/dL Cholesterol non HDL [Mass/Vol] 139 mg/dL [facility] Comment on above: National Cholesterol Education Program Guidelines: NON HDL Cholesterol Desirable: <130 mg/dL Borderline High: 130-159 mg/dL High: 160-189 mg/dL Very High: > or = 190 mg/dL Cholesterol.total/Cholest elton in HDL [Mass ratio] 3.5 {ratio} ratio [facility] Comment on above: Female Cholesterol/H DL Ratio: Average risk: 4.4 1/2 average risk: 3.3 2 x average risk: 7.1 Interpretation and review of laboratory results Abnormal [facility] Triglyceride [Mass/Vol] 151 mg/dL High 30 - 150 mg/dL [facility] Comment on above: National Cholesterol Education Program Guidelines: Triglyceride Normal: <150 mg/dL Borderline High: 150-199 mg/dL High: 200-499 mg/dL Very High: greater than or equal to 500 mg/dL No Panel Informationon 04-16 [facility] TSH DL <= 0.005 mIU/L Qnon 0 04-16-2021 Interpretation and review of laboratory results Normal [facility] TSH Qn 1.04 m[IU]/L [facility] Basic Metabolic Panel w/ Ref ray to MGon 03-23-2021 Anion gap [Moles/Vol] 13 mmol/L 9 - 17 mmol/L [facility] Calcium [Mass/Vol] 8.8 mg/dL 8.6 - 10. 4 mg/dL [facility] Chloride [Moles/Vol] 104 mmol/L 98 - 10 7 mmol/L [facility] [employer] CO2 [Moles/Vol] 21 mmol/L 20 - 31 mmol/L [facility] Creatinine [Mass/Vol] 0.65 mg/dL 0.50 - 0.90 mg/dL [facility] GFR >60 >60 mL/min [facility] GFR Non- >60 >60 mL/min [facility] GFR/1.73 sq M.predicted MDRD (S/P/Bld) [Vol rate/Area] [facility] Comment on above: Average GFR for 30-3 9 years old: 107 mL/min/1.73sq m Chronic Kidney Disease: <60 mL/min/1.73sq m Kidney failure: <15 mL/min/1.73sq m eGFR calculated using average adult body mass. Additional eGFR calculator available at: http://www.[employer]oo.Blogvio/multiple_crcl_2012.htm GFR/1.73 sq M.predicted MDRD (S/P/Bld) [Vol rate/Area] NOT REPORTED [facility] Glucose [Mass/Vol] 104 mg/dL High 70 - 99 mg/dL [facility] Interpretation and review of laboratory results Abnormal [facility] Potassium [Moles/Vol] 3.7 mmol/L 3.7 - 5.3 mmol/L [facility] Sodium [Moles/Vol] 138 mmol/L 135 - 144 mmol/L [facility] Urea nitrogen (BldV) [Mass/Vol] 15 mg/dL 6 - 20 mg/dL [facility] Urea nitrogen/Creatinine (Bld) [Mass ratio] [address] [facility] CBC Auto Differentialon 03-07 Absolute Eos # 0.10 [facility] th Absolute Immature Granulocyte NOT REPORTED [facility] Absolute Lymph # 0.60 Low [facility] alth Absolute [place] [facility] Basophils (Bld) [#/Vol] 0.00 10*3/uL [facility] Basophils/100 WBC (Bld) 0 % 0 - 2 % [facility] Differential Type YES [facility] ealth Eosinophils/100 WBC (Bld) 2 % 0 - 5 % [facility] Hematocrit (Bld) [Volume fraction] 34.6 % Low 36 - 46 % [facility] Hemoglobin.gastrointestin al spec 1 Ql (Stl) 11.7 g/dL Low 12.0 - 16.0 g/dL [facility] Immature Granulocytes NOT REPORTED 0 % [facility] Interpretation and review of laboratory results Abnormal [facility] Lymphocytes/100 WBC (Bld) 13 % Low 15 - 40 % [facility] MCH (RBC) [Entitic mass] 26.4 pg 26 - 34 pg [facility] MCHC (RBC) [Mass/Vol] 33.8 g/dL 31 - 3 7 g/dL [facility] MCV (RBC) [Entitic vol] 78.2 fL Low 80 - 100 fL [facility] Monocytes/100 WBC (Bld) 10 % High 4 - 8 % [facility] NRBC Automated NOT REPORTED per 100 WBC [facility] Platelet distribution width (Bld) [Ratio] 14.4 % 12.1 - 15.2 % [facility] Platelet Estimate NOT REPORTED [facility] Platelet mean volume (Bld) [Entitic vol] NOT REPORTED 6.0 - 12.0 fL [facility] Platelets (Bld) [#/Vol] 259 10*3/uL [facility] RBC (Bld) [#/Vol] 4.43 10*6/uL 4.0 - 5.2 m/uL [facility] RBC (Bld) [#/Vol] NOT REPORTED [facility] Segmented neutrophils/100 WBC (Bld) 75 % 47 - 75 % [facility] Segs Absolute 3.60 [facility] WBC (Bld) [#/Vol] 4.8 10*3/uL [facility] WBC (Bld) [#/Vol] NOT REPORTED [facility] COVID-19, Rapidon 03-23-2021 Interpretation and review of laboratory results Abnormal [facility] SARS-CoV-2 (COVID-19) RNA KALPESH+probe Ql (Unsp spec) Detected Abnormal Not Detected [facility] Comment on above: Rapid NAAT: [...] this assay. Fact sheet for Healthcare Providers: https://www.fda.gov/media/631894/download Fact sheet for Patients: https://www.fda.gov/media/110977/download Methodology: Isothermal Nucleic Acid Amplification Results reported to the appropriate Health Department Specimen Description .NASOPHARYNGEAL SWAB [facility] No Panel Informationon 03-23 Direct Exam Negative [facility] Rapid influenza A/B antigens on 03-23-2021 Special Requests NOT REPORTED [facility] Specimen Description .NASOPHARYNGEAL SWAB [facility] COVID-19, RapidOrdered By: Shayy Springer on 12-27-2020 SARS-CoV-2 (COVID-19) RNA KALPESH+probe Ql (Unsp spec) Not detected Not Detected [facility] Work Phone: Comment on above: Rapid NAAT: [...] management decisions. Fact sheet for Healthcare Providers: https://www.fda.gov/media/384336/download Fact sheet for Patients: https://www.fda.gov/media/844793/download Methodology: Isothermal Nucleic Acid Amplification Specimen Description .NASOPHARYNGEAL SWAB [employer] Phone: [employer] Phone: Strep Screen Group A ThroatO rdered By: Wayne Springer on 12-27-2020 S. pyogenes Ag IA Ql (Unsp spec) Rapid Strep A negative. A negative Rapid Group A Strep Screen result does not rule out the possibility of Group A Streptococci in the specimen. A Group A Strep DNA test is available upon request. [employer] Phone: Special Requests NOT REPORTED [employer] Phone: Specimen Description .THROAT [employer] Phone: [employer] Phone: XR SHOULDER RIGHT (MIN 2 VIE WS)Ordered By: Anuj Quinn on 11-20-2020 No acute fracture or traumatic malalignment. [employer] Phone: EXAMINATION: XR SHOULDER RIGHT (MIN 2 VIEWS), , 11/20/2020 9:30 PM EDT INDICATION: Reason for exam:->shoulder pain HISTORY: Ordering Provider Reason for Exam: Technologist Note: Additional: COMPARISON: None. TECHNIQUE: Right shoulder x-ray: 3 view(s). FINDINGS: No acute fracture. Glenohumeral and acromioclavicular joints are anatomically aligned. Joint spaces are preserved. Soft tissues are unremarkable. [employer] Phone: Ward, pn Incoming Radiant Results From EXPO - 11/20/2020 9:55 PM EDT EXAMINATION: XR [...] IMPRESSION: No acute fracture or traumatic malalignment. [employer] Work Phone: [employer] Work Phone: COVID-19, MOLECULARon 2020 SARS-CoV-2 (COVID-19) RNA KALPESH+probe Ql (Unsp spec) Not detected Normal Not Detected [facility] Comment on above: Order Comment: : [...] at the following links: For Healthcare Providers: https://www.fda.gov/media/455381/download For Patients: https://www.fda.gov/media/892272/download Performed By: #### L [id number] #### [facility] [address] [place] [address] Joe Rider M.D. [id number] HbA1c (Bld) [Mass fraction]O rdered By: Zelda Bautista on 07-09-2020 Interpretation and review of laboratory results Normal [facility] POC Hemoglobin [id number] By : Zelda Bautista on 07-09-2020 HbA1c (Bld) [Mass fraction] 5.2 % 4.0 - 6.0 % [facility] HbA1c (Bld) [Mass fraction]O rdered By: Lelo Gallegos on 06-09-2020 Interpretation and review of laboratory results Normal [facility] POC Hemoglobin [id number] By : Lelo Gallegos on 06-09-2020 HbA1c (Bld) [Mass fraction] 5.6 % 4.0 - 6.0 % [facility] CBC Auto Differentialon 03-08 Basophils (Bld) [#/Vol] 0.00 10*3/uL [place] Basophils/100 WBC (Bld) 0 % 0 - 2 % [place] Differential Type YES [place] Eosinophils (Bld) [#/Vol] 0.10 10*3/uL [place] Eosinophils/100 WBC (Bld) 1 % 0 - 5 % [place] Erythrocyte distribution width (RBC) [Ratio] 14.2 % 12.1 - 15.2 % [place] Hematocrit (Bld) [Volume fraction] 36.1 % 36 - 46 % [place] Hemoglobin (Bld) [Mass/Vol] 12.5 g/dL 12 - 16 g/dL [place] Interpretation and review of laboratory results Abnormal [place] Lymphocytes (Bld) [#/Vol] 2.00 10*3/uL [place] Lymphocytes/100 WBC (Bld) 14 % Low 15 - 40 % [place] MCH (RBC) [Entitic mass] 30.6 pg 26 - 34 pg [place] MCHC (RBC) [Mass/Vol] 34.5 g/dL 31 - 3 7 g/dL [place] MCV (RBC) [Entitic vol] 88.5 fL 80 - 100 fL [place] Monocytes (Bld) [#/Vol] 0.80 10*3/uL [place] Monocytes/100 WBC (Bld) 6 % 4 - 8 % [place] Platelet mean volume (Bld) [Entitic vol] NOT REPORTED 6 - 12 fL [place] Platelets (Bld) [#/Vol] 300 10*3/uL [place] Platelets (Bld) [#/Vol] NOT REPORTED [place] RBC (Bld) [#/Vol] 4.08 10*6/uL 4 - 5.2 m/uL [place] RBC morphology finding Nom (Bld) NOT REPORTED [place] Segmented neutrophils/100 WBC (Bld) 79 % High 47 - 75 % [place] Segs Absolute 10.70 High [place] WBC (Bld) [#/Vol] 13.6 10*3/uL [place] WBC (Bld) [#/Vol] NOT REPORTED per 100 WBC [place] WBC Morphology NOT REPORTED [place] COVID-19, PCRon 03-26-2020 SARS-CoV-2, Rapid Not Detected Not Detected [place] Comment on above: Rapid NAAT: The [...] management decisions. Fact sheet for Healthcare Providers: https://www.fda.gov/media/505196/download Fact sheet for Patients: https://www.fda.gov/media/249936/download Methodology: Isothermal Nucleic Acid Amplification Source .THROAT [place] Comprehensive Metabolic Pane l w/ Reflex to MGon 03-26-2020 Albumin [Mass/Vol] 3.3 g/dL Low 3.5 - 5.2 g/dL [place] Albumin/Globulin [Mass ratio] NOT REPORTED [place] ALP [Catalytic activity/Vol] 57 U/L 35 - 104 U/L [place] ALT [Catalytic activity/Vol] U/L Low 5 - 33 U/L [place] Anion gap [Moles/Vol] 11 mmol/L 9 - 17 mmol/L [place] AST [Catalytic activity/Vol] 9 U/L <32 [place] Bilirubin Ql (U) 0.10 mg/dL Low 0.3 - 1.2 mg/dL [place] Bun/Cre Ratio 21 High [place] Calcium [Mass/Vol] 10.2 mg/dL 8.6 - 10. 4 mg/dL [place] Chloride [Moles/Vol] 104 mmol/L 98 - 10 7 mmol/L [place] CO2 [Moles/Vol] 21 mmol/L 20 - 31 mmol/L [place] Creatinine [Mass/Vol] 0.42 mg/dL Low 0.5 - 0.9 mg/dL [place] GFR >60 >60 mL/min [place] GFR Non- >60 >60 mL/min [place] GFR/1.73 sq M predicted among non-blacks MDRD (S/P/Bld) [Vol rate/Area] NOT REPORTED [place] GFR/1.73 sq M predicted among non-blacks MDRD (S/P/Bld) [Vol rate/Area] [place] Comment on above: Average GFR for 30-3 9 years old: 107 mL/min/1.73sq m Chronic Kidney Disease: <60 mL/min/1.73sq m Kidney failure: <15 mL/min/1.73sq m eGFR calculated using average adult body mass. Additional eGFR calculator available at: http://www.Calleoo.Blogvio/multiple_crcl_2012.htm Glucose [Mass/Vol] 100 mg/dL High 70 - 99 mg/dL [place] Interpretation and review of laboratory results Abnormal [place] Potassium [Moles/Vol] 3.8 mmol/L 3.7 - 5.3 mmol/L [place] Protein [Mass/Vol] 6.5 g/dL 6.4 - 8.3 g/dL [place] Sodium [Moles/Vol] 136 mmol/L 135 - 144 mmol/L [place] Urea nitrogen [Mass/Vol] 9 mg/dL 6 - 20 mg/dL [place] Otheron 03-26-2020 SARS-CoV-2 [place] Immature granulocytes (Bld) [#/Vol] NOT REPORTED [place] Urinalysis, reflex to micros copicon 03-26-2020 Bilirubin U[facility] Negative [facility] [place] [place] Color, UA YELLOW YELLOW [place] Glucose, Ur Negative NEGATIVE [place] Ketones Ql (U) Negative NEGATIVE [place] Leukocyte esterase Test strip Ql (U) Negative NEGATIVE [place] Nitrite, Urine Negative NEGATIVE [place] pH, UA 7.0 [place] Protein (U) [Mass/Vol] Negative NEGATIVE [place] Specific [place], UA 1.010 [place], [place] Turbidity UA CLEAR CLEAR [place] Urinalysis Comments [place] Urine Hgb Negative NEGATIVE [place] Urobilinogen, Urine Normal Normal [place] Wet Prep, Genitalon 11-20-19 Direct Exam MODERATE EPITHELIAL CELLS Abnormal [place] Direct Exam FEW TRICHOMONAS SEEN Abnormal [place] Direct Exam MODERATE BACTERIA Abnormal [place] Direct Exam Few epithelials coated with bacteria resembling clue cells. Abnormal [place] Direct Exam NO FUNGAL ELEMENTS SEEN [place] Interpretation and review of laboratory results Abnormal [place] Special Requests NOT REPORTED [place] Specimen Description .VAGINAL SPECIMEN [place] WBC (Bld) [#/Vol] FEW WBC SEEN Abnormal [place] Basic Metabolic Panelon 06-05 Anion gap [Moles/Vol] 15 mmol/L 10 - 2 0 mmol/L [facility] Calcium [Mass/Vol] 8.6 mg/dL 8.4 - 10. 2 mg/dL [facility] Chloride [Moles/Vol] 102 mmol/L 98 - 10 8 mmol/L [facility] Creatinine [Mass/Vol] 0.36 mg/dL Low 0.40 - 1.10 [facility] GFR/1.73 sq M predicted among non-blacks MDRD (S/P/Bld) [Vol rate/Area] The eGFR should be used for monitoring renal function only and not for medication dosing. [facility] GFR/1.73 sq M.predicted CKD-EPI (S/P/Bld) [Vol rate/Area] 146 >=60 mL/min/1.73 m2 [facility] Glucose [Mass/Vol] 102 mg/dL High 65 - 99 mg/dL [facility] HCO3 [Moles/Vol] 25 mmol/L 21 - 32 mmol/L [facility] Interpretation and review of laboratory results Abnormal [facility] Potassium [Moles/Vol] 4.1 mmol/L 3.5 - 5.1 mmol/L [facility] Sodium [Moles/Vol] 138 mmol/L 135 - 145 mmol/L [facility] Urea nitrogen [Mass/Vol] 5 mg/dL Low 8 - 25 mg/dL [facility] Urea nitrogen/Creatinine [Mass ratio] 13.9 mg/mg [facility] Hepatic Function Panelon Albumin [Mass/Vol] 3.3 g/dL 3.2 - 5.2 g/dL [facility] ALP [Catalytic activity/Vol] 253 U/L High 40 - 140 U/L [facility] ALT [Catalytic activity/Vol] 686 U/L High 0 - 40 U/L [facility] AST [Catalytic activity/Vol] 349 U/L High 0 - 45 U/L [facility] Bilirubin [Mass/Vol] 6.0 mg/dL High 0 - 1.3 mg/dL [facility] Bilirubin.conjugated [Mass/Vol] 5.1 mg/dL High 0 - 0.4 mg/dL [facility] Interpretation and review of laboratory results Abnormal [facility] Protein [Mass/Vol] 6.8 g/dL 6 - 8 g/dL [facility] alth Bilirubin, Directon 06-16-19 20 Bilirubin.conjugated [Mass/Vol] 5.4 mg/dL High 0 - 0.4 mg/dL [facility] Interpretation and review of laboratory results Abnormal [facility] CBCon 06-16-2019 Erythrocyte distribution width (RBC) [Entitic vol] 15.1 % High 11.6 - 14.8 % [facility] Hematocrit (Bld) [Volume fraction] 38.5 % 36 - 46 % [facility] Hemoglobin (Bld) [Mass/Vol] 12.9 g/dL 12 - 16 g/dL [facility] Interpretation and review of laboratory results Abnormal [facility] MCH (RBC) [Entitic mass] 29.1 pg 26 - 34 pg [facility] MCHC (RBC) [Mass/Vol] 33.5 g/dL 31 - 3 7 g/dL [facility] MCV (RBC) [Entitic vol] 86.9 fL 80 - 100 fL [facility] Nucleated RBC (Bld) [#/Vol] 0.00 10*3/uL [facility] Nucleated RBC/100 WBC (Bld) [Ratio] 0.0 % [facility] Platelet mean volume (Bld) [Entitic vol] 11.3 fL 9 - 15.5 fL [facility] Platelets (Bld) [#/Vol] 185 10*3/uL [facility] RBC (Bld) [#/Vol] 4.43 10*6/uL [facility] WBC (Bld) [#/Vol] 6.48 10*3/uL [facility] Comprehensive Metabolic Pane cayden 06-16-2019 Albumin [Mass/Vol] 3.3 g/dL 3.2 - 5.2 g/dL [facility] ALP [Catalytic activity/Vol] 217 U/L High 40 - 140 U/L [facility] ALT [Catalytic activity/Vol] 825 U/L High 0 - 40 U/L [facility] Anion gap [Moles/Vol] 14 mmol/L 10 - 2 0 mmol/L [facility] AST [Catalytic activity/Vol] 544 U/L High 0 - 45 U/L [facility] Bilirubin [Mass/Vol] 5.9 mg/dL High 0 - 1.3 mg/dL [facility] Calcium [Mass/Vol] 8.4 mg/dL 8.4 - 10. 2 mg/dL [facility] Chloride [Moles/Vol] 103 mmol/L 98 - 10 8 mmol/L [facility] Creatinine [Mass/Vol] 0.32 mg/dL Low 0.40 - 1.10 [facility] GFR/1.73 sq M predicted among non-blacks MDRD (S/P/Bld) [Vol rate/Area] The eGFR should be used for monitoring renal function only and not for medication dosing. [facility] GFR/1.73 sq M.predicted CKD-EPI (S/P/Bld) [Vol rate/Area] 152 >=60 mL/min/1.73 m2 [facility] Glucose [Mass/Vol] 92 mg/dL 65 - 99 mg/dL [facility] HCO3 [Moles/Vol] 26 mmol/L 21 - 32 mmol/L [facility] Interpretation and review of laboratory results Abnormal [facility] Potassium [Moles/Vol] 4.3 mmol/L 3.5 - 5.1 mmol/L [facility] Protein [Mass/Vol] 6.2 g/dL 6 - 8 g/dL [facility] alth Sodium [Moles/Vol] 139 mmol/L 135 - 145 mmol/L [facility] Urea nitrogen [Mass/Vol] 4 mg/dL Low 8 - 25 mg/dL [facility] Urea nitrogen/Creatinine [Mass ratio] 12.5 mg/mg [facility] Bilirubin, Directon 06-15-19 20 Bilirubin.conjugated [Mass/Vol] 4.7 mg/dL High 0 - 0.4 mg/dL [facility] Interpretation and review of laboratory results Abnormal [facility] CBCon 06-15-2019 Erythrocyte distribution width (RBC) [Entitic vol] 14.8 % 11.6 - 14.8 % [facility] Hematocrit (Bld) [Volume fraction] 38.5 % 36 - 46 % [facility] Hemoglobin (Bld) [Mass/Vol] 12.6 g/dL 12 - 16 g/dL [facility] MCH (RBC) [Entitic mass] 29.0 pg 26 - 34 pg [facility] MCHC (RBC) [Mass/Vol] 32.7 g/dL 31 - 3 7 g/dL [facility] MCV (RBC) [Entitic vol] 88.5 fL 80 - 100 fL [facility] Nucleated RBC (Bld) [#/Vol] 0.00 10*3/uL [facility] Nucleated RBC/100 WBC (Bld) [Ratio] 0.0 % [facility] Platelet mean volume (Bld) [Entitic vol] 11.0 fL 9 - 15.5 fL [facility] Platelets (Bld) [#/Vol] 155 10*3/uL [facility] RBC (Bld) [#/Vol] 4.35 10*6/uL [facility] WBC (Bld) [#/Vol] 5.74 10*3/uL [facility] Comprehensive Metabolic Pane cayden 06-15-2019 Albumin [Mass/Vol] 3.2 g/dL 3.2 - 5.2 g/dL [facility] ALP [Catalytic activity/Vol] 193 U/L High 40 - 140 U/L [facility] ALT [Catalytic activity/Vol] 888 U/L High 0 - 40 U/L [facility] Anion gap [Moles/Vol] 15 mmol/L 10 - 2 0 mmol/L [facility] AST [Catalytic activity/Vol] 667 U/L High 0 - 45 U/L [facility] Bilirubin [Mass/Vol] 5.2 mg/dL High 0 - 1.3 mg/dL [facility] Calcium [Mass/Vol] 8.2 mg/dL Low 8.4 - 10. 2 mg/dL [facility] Chloride [Moles/Vol] 103 mmol/L 98 - 10 8 mmol/L [facility] Creatinine [Mass/Vol] 0.36 mg/dL Low 0.40 - 1.10 [facility] GFR/1.73 sq M predicted among non-blacks MDRD (S/P/Bld) [Vol rate/Area] The eGFR should be used for monitoring renal function only and not for medication dosing. [facility] GFR/1.73 sq M.predicted CKD-EPI (S/P/Bld) [Vol rate/Area] 146 >=60 mL/min/1.73 m2 [facility] Glucose [Mass/Vol] 122 mg/dL High 65 - 99 mg/dL [facility] HCO3 [Moles/Vol] 22 mmol/L 21 - 32 mmol/L [facility] Interpretation and review of laboratory results Abnormal [facility] Potassium [Moles/Vol] 3.8 mmol/L 3.5 - 5.1 mmol/L [facility] Protein [Mass/Vol] 5.8 g/dL Low 6 - 8 g/dL [facility]th Sodium [Moles/Vol] 136 mmol/L 135 - 145 mmol/L [facility] Urea nitrogen [Mass/Vol] 5 mg/dL Low 8 - 25 mg/dL [facility] Urea nitrogen/Creatinine [Mass ratio] 13.9 mg/mg [facility] NM HEPATOBILIARY WO EJECTION FRACTIONon [...] tree, and small bowel are not visualized. [facility] Opacified liver with no visualization [...] regarding the presence or absence of cholecystitis. [employer] Workstation ID: [id number] [facility] Interface, Rad In Fuji Speechq [...] regarding the presence or absence of cholecystitis. [employer] Workstation ID: [id number] [facility] APTTon 06-14-2019 aPTT Coag (Bld) [Time] 31.1 s [facility]- [place], [place] Comment on above: PTT Therapeutic Range: 61.7-88.4 Therapeutic range corresponds to plasma heparin levels of 0.3-0.7 U/mL. Acetaminophen Levelon 2019 Acetaminophen [Mass/Vol] 9.1 [facility] Interpretation and review of laboratory results Normal [facility] Bilirubin, Directon 06-14-19 20 Bilirubin.conjugated [Mass/Vol] 4.3 mg/dL High 0 - 0.4 mg/dL [facility] Interpretation and review of laboratory results Abnormal [facility] CBC WITH AUTO DIFFERENTIALon 06-14-2019 Erythrocyte distribution width (RBC) [Entitic vol] 14.5 % 11.6 - 14.8 % [facility] Hematocrit (Bld) [Volume fraction] 34.6 % Low 36 - 46 % [facility] Hemoglobin (Bld) [Mass/Vol] 11.6 g/dL Low 12 - 16 g/dL [facility] Interpretation and review of laboratory results Abnormal [facility] MCH (RBC) [Entitic mass] 29.7 pg 26 - 34 pg [facility] MCHC (RBC) [Mass/Vol] 33.5 g/dL 31 - 3 7 g/dL [facility] MCV (RBC) [Entitic vol] 88.5 fL 80 - 100 fL [facility] Nucleated RBC (Bld) [#/Vol] 0.00 10*3/uL [facility] Nucleated RBC/100 WBC (Bld) [Ratio] 0.0 % [facility] Platelet mean volume (Bld) [Entitic vol] 10.8 fL 9 - 15.5 fL [facility] Platelets (Bld) [#/Vol] 172 10*3/uL [facility] RBC (Bld) [#/Vol] 3.91 10*6/uL Low [facility] WBC (Bld) [#/Vol] 7.28 10*3/uL [facility] CT ABDOMEN PELVIS W IV CONTR AST Additional Contrast? Noneon 06-14-2019 Ward, pn Incoming Radiant Results From [employer]/CAPPTUREs - 06/14/2019 12:27 AM EDT EXAMINATION: CT [...] liver function panel and consider ultrasound imaging. [place] Pericholecystic fluid versus gallbladder wall thickening and additional periportal edema. There are no visualized stones in the gallbladder gallbladder and/or hepatic pathology are suspected. Correlate with liver function panel and consider ultrasound imaging. [place] EXAMINATION: CT ABDOMEN PELVIS W IV [...] structures demonstrate no acute or concerning abnormality. [facility] [place] CT COMPARISON IMPORTon 06-13 This order has been auto-finalized and does not contain a result. [facility] Comprehensive Metabolic Pane cayden 06-14-2019 Albumin [Mass/Vol] 3.0 g/dL Low 3.2 - 5.2 g/dL [facility] ALP [Catalytic activity/Vol] 183 U/L High 40 - 140 U/L [facility] ALT [Catalytic activity/Vol] 808 U/L High 0 - 40 U/L [facility] Anion gap [Moles/Vol] 16 mmol/L 10 - 2 0 mmol/L [facility] AST [Catalytic activity/Vol] 592 U/L High 0 - 45 U/L [facility] Bilirubin [Mass/Vol] 4.9 mg/dL High 0 - 1.3 mg/dL [facility] Calcium [Mass/Vol] 8.4 mg/dL 8.4 - 10. 2 mg/dL [facility] Chloride [Moles/Vol] 104 mmol/L 98 - 10 8 mmol/L [facility] Creatinine [Mass/Vol] 0.43 mg/dL 0.40 - 1.10 [facility] GFR/1.73 sq M predicted among non-blacks MDRD (S/P/Bld) [Vol rate/Area] The eGFR should be used for monitoring renal function only and not for medication dosing. [facility] GFR/1.73 sq M.predicted CKD-EPI (S/P/Bld) [Vol rate/Area] 138 >=60 mL/min/1.73 m2 [facility] Glucose [Mass/Vol] 79 mg/dL 65 - 99 mg/dL [facility] HCO3 [Moles/Vol] 21 mmol/L 21 - 32 mmol/L [facility] Interpretation and review of laboratory results Abnormal [facility] Potassium [Moles/Vol] 3.8 mmol/L 3.5 - 5.1 mmol/L [facility] Protein [Mass/Vol] 5.7 g/dL Low 6 - 8 g/dL [facility]th Sodium [Moles/Vol] 137 mmol/L 135 - 145 mmol/L [facility] Urea nitrogen [Mass/Vol] 9 mg/dL 8 - 25 mg/dL [facility] Urea nitrogen/Creatinine [Mass ratio] 20.9 mg/mg High [facility] DRUGS OF ABUSE SCREEN, URINE on 06-14-2019 Amphetamines Ql (U) None Detected None Detected [facility] Comment on above: Urine Amphetamine Cu toff: < 1000 ng/mL = None Detected Barbiturates Screen Ql (U) None Detected None Detected [facility] Comment on above: Urine Barbiturates C utoff: < 200 ng/mL = None Detected Benzodiazepines Ql (U) None Detected None Detected [facility] Comment on above: Urine Benzodiazepine Cutoff: < 300 ng/mL = None Detected Cannabinoids Screen Ql (U) None Detected None Detected [facility] Comment on above: Urine Cannabinoids C utoff: < 50 ng/mL = None Detected Cocaine Ql (U) Positive Abnormal None Detected [facility] Comment on above: Urine Cocaine Cutoff : < 300 ng/mL = None Detected Interpretation and review of laboratory results Abnormal [facility] Methadone Screen Ql (U) None Detected Non e Detected [facility] Comment on above: Urine Methadone Cuto ff: < 300 ng/mL = None Detected Opiates Screen Ql (U) None Detected None Detected [facility] Comment on above: Urine Opiates Cutoff : < 300 ng/mL = None Detected Oxycodone Ql (U) None Detected None Detected [facility] Comment on above: Urine Oxycodone Cuto ff: < 100 ng/mL = None Detected Screen results should be used for treatment purposes only. Specimen will be kept for 2 weeks, if the sample is adequate. Confirmation testing can be initiated by calling the lab within 2 weeks. [facility] HEPATITIS PANEL, ACUTEon HAV IgM Ql (S) Negative Negative [facility] HBV core IgM Ql (S) Negative Negative [facility] HBV surface Ag Ql (S) Negative Negative [facility] HCV Ab Ql (S) Positive Abnormal Negative [facility] Comment on above: A positive antibody test requires additional follow-up testing, Hepatitis C Virus Quantitation, to determine if a person is currently infected with Hepatitis C. Interpretation and review of laboratory results Abnormal [facility] Test performed using Constantin DEVIKA immunoassay system [facility] Lactic Acid, Plasmaon 2019 Interpretation and review of laboratory results Normal [facility] Lactate [Moles/Vol] 0.8 mmol/L 0.6 - 2 mmol/L [facility] MORPHOLOGYon 06-14-2019 Platelets LM Ql (Bld) Normal Normal [facility] RBC morphology finding Nom (Bld) Normal [facility] MR MRCPon 06-14-2019 EXAMINATION: MR MRCP [...] Axial T1-weighted images were obtained in- and [id number]. Axial diffusion-weighted imaging was also performed. FINDINGS: The liver overall appears enlarged with the right hepatic lobe measuring 22.6 cm cmfkyzoz-hc-lziyjce r. The spleen measures 14.6 cm mfdxihyy-ql-jjmorem r and is also mildly enlarged. There [...] the right kidney. Bowel pattern is nonobstructive. [facility] 1. Re-demonstration of diffuse periportal edema as well as significant circumferential gallbladder wall edema similar to that seen on prior CT study. 2. Mild hepatosplenomegaly. 3. No obvious gallstones. Negative for biliary or pancreatic ductal dilatation. Negative for choledocholithiasis . 4. Trace volume of abdominal ascites. [employer] Workstation ID: [id number] [facility] Interface, Rad In Asif Chavis - [...] Axial T1-weighted images were obtained in- and [id number]. Axial diffusion-weighted imaging was also performed. FINDINGS: The liver overall appears enlarged with the right hepatic lobe measuring 22.6 cm icygmtve-pm-xlgqvhe r. The spleen measures 14.6 cm cplkewov-zq-xbwzaik r and is also mildly enlarged. There [...] . 4. Trace volume of abdominal ascites. [employer] Workstation ID: [id number] [facility] Manual Differentialon 2019 Basophils (Bld) [#/Vol] 0.00 10*3/uL [facility] Basophils/100 WBC (Bld) 0.0 % [facility] Eosinophils (Bld) [#/Vol] 0.00 10*3/uL [facility] Eosinophils/100 WBC (Bld) 0.0 % [facility] Lymphocytes (Bld) [#/Vol] 3.28 10*3/uL [facility] Lymphocytes/100 WBC (Bld) 37.0 % [facility] Monocytes (Bld) [#/Vol] 0.44 10*3/uL [facility] Monocytes/100 WBC (Bld) 6.0 % [facility] Neutrophils (Bld) [#/Vol] 3.57 10*3/uL [facility] Neutrophils/100 WBC (Bld) 49.0 % [facility] Variant lymphocytes/100 WBC (Bld) 8.0 % [facility] PT/INRon 06-14-2019 INR Coag (PPP) [Relative time] 1.3 {INR} [facility] Interpretation and review of laboratory results Abnormal [facility] PT Coag (PPP) [Time] 15.5 s [facility] During the induction phase of oral anticoagulation, the INR may not reflect the anticoagulation status of the patient. Therapeutic ranges for INR's are: Most clinical situations: INR 2.0-3.0 Mechanical Prosthetic Valve: INR 2.5-3.5 Critical: INR >5.0 [facility] Protime-INRon 06-14-2019 INR Coag (PPP) [Relative time] 1.2 {INR} [facility] [place] Comment on above: * THERAPY INDICATIONS * REFERENCE RANGES Pts not on anti-coagulants 1.0 - 1.5 INR Low risk pts on anti-coagulants 2.0 - 3.0 INR High risk pts on anti-coagulants 2.5 - 3.5 INR Prevention of atrial thrombo-embolism 3.0 - 4.5 INR Interpretation and review of laboratory results Abnormal [facility] [place] [place] PT Coag (PPP) [Time] 11.7 s [facility] [place] Salicylate Levelon 0 Interpretation and review of laboratory results Abnormal [facility] Salicylates [Mass/Vol] mg/dL Low 10 - 20 mg/dL [facility] URINALYSISon 06-14-2019 Bacteria Auto Ql (U) Rare Abnormal None Se en /hpf [facility] Bilirubin Ql (U) Positive Abnormal Negative [facility] Comment on above: False positive urine bilirubins can occur in the setting of a large amount of hemoglobin and secondary to medications including anti-inflammatory agents, rifampin, and pyridium. Clarity Refractometry automated (U) Clear Clear [facility] Color (U) Erica Abnormal Colorless, Yellow [facility] Epithelial cells.squamous Auto (Urine sed) [#/Area] 4 [facility] alth Glucose Auto test strip (U) [Mass/Vol] Negative Negative mg/dL [facility] Hemoglobin Auto test strip Ql (U) Negative Negative [facility] Interpretation and review of laboratory results Abnormal [facility] Ketones (U) [Mass/Vol] >=80 Abnormal Negat krystal mg/dL [facility] Leukocyte esterase Auto test strip Ql (U) Negative Negative [facility] Mucus Auto (Urine sed) [#/Area] Rare None Seen, Rare /lpf [facility] Nitrite Auto test strip Ql (U) Negative Negative [facility] pH (U) 6.0 [pH] [facility] Protein (U) [Mass/Vol] 30 Abnormal Negat krystal mg/dL [facility] Comment on above: False positive resul ts may occur in urines with large amounts of hemoglobin, pH greater than 8.0, contrast medium, or disinfectants including ammonium compounds. RBC Auto (Urine sed) [#/Area] 2 [facility] Specific gravity (U) [Rel density] 1.028 High [facility] Urobilinogen (U) [Mass/Vol] >=4.0 Abnormal <2.0 mg/dL [facility] WBC Auto (Urine sed) [#/Area] 2 [facility] Microscopic examination is performed on all urinalysis samples and only positive findings are reported. The test for blood on the chemical analytic portion of urinalysis may also be positive due to hemoglobinuria and myoglobinuria and if red blood cells are present they are quantified by microscopic examination. [facility] US ABDOMEN LIMITED STUDYon 0 [...] liver likely small hemangioma. Workstation ID: [id number] [employer] EXAMINATION: US ABDOMEN LIMITED STUDY HISTORY: RUQ [...] measures 10.7 cm in length. No hydronephrosis. [facility] 1. Contracted gallbladder limits evaluation. No cholelithiasis identified. Nonspecific edematous gallbladder wall thickening and reported positive sonographic Short's sign, cannot exclude acalculus cholecystitis. No biliary ductal dilatation. 2. 1.3 cm echogenic lesion left lobe of the liver likely small hemangioma. Workstation ID: [id number] [facility] Amylaseon 06-13-2019 Amylase [Catalytic activity/Vol] 22 U/L Low 28 - 100 U/L [place] CBC Auto Differentialon Basophils (Bld) [#/Vol] 0.00 10*3/uL [place] Basophils/100 WBC (Bld) 1 % 0 - 2 % [place] Differential Type YES [place] Eosinophils (Bld) [#/Vol] 0.00 10*3/uL [place] Eosinophils/100 WBC (Bld) 0 % 0 - 5 % [place] Erythrocyte distribution width (RBC) [Ratio] 14.9 % 12.1 - 15.2 % [place] Hematocrit (Bld) [Volume fraction] 43.3 % 36 - 46 % [place] Hemoglobin (Bld) [Mass/Vol] 14.3 g/dL 12 - 16 g/dL [place] Lymphocytes (Bld) [#/Vol] 2.50 10*3/uL [place] Lymphocytes/100 WBC (Bld) 30 % 15 - 40 % [place] MCH (RBC) [Entitic mass] 28.8 pg 26 - 34 pg [place] MCHC (RBC) [Mass/Vol] 33.1 g/dL 31 - 3 7 g/dL [place] MCV (RBC) [Entitic vol] 87.2 fL 80 - 100 fL [place] Monocytes (Bld) [#/Vol] 0.70 10*3/uL [place] Monocytes/100 WBC (Bld) 8 % 4 - 8 % [place] Platelet mean volume (Bld) [Entitic vol] NOT REPORTED 6 - 12 fL [place] Platelets (Bld) [#/Vol] 203 10*3/uL [place] Platelets (Bld) [#/Vol] NOT REPORTED [place] RBC (Bld) [#/Vol] 4.97 10*6/uL 4 - 5.2 m/uL [place] RBC morphology finding Nom (Bld) NOT REPORTED [place] Segmented neutrophils/100 WBC (Bld) 61 % 47 - 75 % [place] Segs Absolute 5.20 [place] WBC (Bld) [#/Vol] 8.4 10*3/uL [place] WBC (Bld) [#/Vol] NOT REPORTED per 100 WBC [place] WBC Morphology NOT REPORTED [place] Comprehensive Metabolic Pane l w/ Reflex to MGon 06-13-2019 Albumin [Mass/Vol] 4.1 g/dL 3.5 - 5.2 g/dL [place] Albumin/Globulin [Mass ratio] NOT REPORTED [place] ALP [Catalytic activity/Vol] 255 U/L High 35 - 104 U/L [place] ALT [Catalytic activity/Vol] 1116 U/L High 5 - 33 U/L [place] Anion gap [Moles/Vol] 17 mmol/L 9 - 17 mmol/L [place] AST [Catalytic activity/Vol] 665 U/L High <32 [place] Bilirubin Ql (U) 6.52 mg/dL High 0.3 - 1.2 mg/dL [place] Bun/Cre Ratio 17 [place] Calcium [Mass/Vol] 10.1 mg/dL 8.6 - 10. 4 mg/dL [place] Chloride [Moles/Vol] 95 mmol/L Low 98 - 10 7 mmol/L [place] CO2 [Moles/Vol] 24 mmol/L 20 - 31 mmol/L [place] Creatinine [Mass/Vol] 0.82 mg/dL 0.5 - 0.9 mg/dL [place] GFR >60 >60 mL/min [place] GFR Non- >60 >60 mL/min [place] GFR/1.73 sq M predicted among non-blacks MDRD (S/P/Bld) [Vol rate/Area] [place] Comment on above: Average GFR for 20-2 9 years old: 116 mL/min/1.73sq m Chronic Kidney Disease: <60 mL/min/1.73sq m Kidney failure: <15 mL/min/1.73sq m eGFR calculated using average adult body mass. Additional eGFR calculator available at: http://www.[employer]el[employer]/multiple_crcl_2012.htm GFR/1.73 sq M predicted among non-blacks MDRD (S/P/Bld) [Vol rate/Area] NOT REPORTED [place] Glucose [Mass/Vol] 134 mg/dL High 70 - 99 mg/dL [place] Interpretation and review of laboratory results Abnormal [place] Potassium [Moles/Vol] 3.7 mmol/L 3.7 - 5.3 mmol/L [place] Protein [Mass/Vol] 8.1 g/dL 6.4 - 8.3 g/dL [place] Sodium [Moles/Vol] 136 mmol/L 135 - 144 mmol/L [place] Urea nitrogen [Mass/Vol] 14 mg/dL 6 - 20 mg/dL [place] Drug screen multi urineon Amphetamine Screen, Ur Negative NEGATIVE [place] Comment on above: (Positive cutoff 500 ng/mL) Barbiturate Screen, Ur Negative NEGATIVE [place] Comment on above: (Positive cutoff 200 ng/mL) Benzodiazepine Screen, Urine Negative NEGATIVE [place] Comment on above: (Positive cutoff 150 ng/mL) Buprenorphine Urine NOT REPORTED NEGATIVE [place] Cannabinoid Scrn, Ur Negative NEGATIVE [place] Comment on above: (Positive cutoff 50 ng/mL) Cocaine Metabolite, Urine Positive Abnormal NEGATIVE [place] Comment on above: (Positive cutoff 150 ng/mL) Interpretation and review of laboratory results Abnormal [place] MDMA, Urine NOT REPORTED NEGATIVE [place] Methadone Screen, Urine Negative NEGATIVE [place] Comment on above: (Positive cutoff 200 ng/mL) Methamphetamine, Urine Negative NEGATIVE [place] Comment on above: (Positive cutoff 500 ng/mL) Opiates, Urine Positive Abnormal NEGATIVE [place] Comment on above: (Positive cutoff 100 ng/mL) Oxycodone Screen, Ur Negative NEGATIVE [place] Comment on above: (Positive cutoff 100 ng/mL) Phencyclidine, Urine Negative NEGATIVE [place] Comment on above: (Positive cutoff 25 ng/mL) Propoxyphene, Urine Negative NEGATIVE [place] Comment on above: (Positive cutoff 300 ng/mL) Test Information NOT REPORTED [place] Tricyclic Antidepressants, Urine Negative NEGATIVE [place] Comment on above: (Positive cutoff 300 ng/mL) Drug screen results are to be used for medical purposes only. All positive results are unconfirmed. Testing for employment or legal uses should be sent to a reference laboratory for confirmation. Lactic Acidon 06-13-2019 Lactate [Moles/Vol] 1.2 mmol/L 0.5 - 2. 2 mmol/L [place] Lipaseon 06-13-2019 Lipase [Catalytic activity/Vol] 8 U/L Low 13 - 60 U/L [place] Microscopic Urinalysison Amorphous, UA NOT REPORTED None [place] Bacteria, UA 2+ Abnormal None [place] Casts UA 5 TO 10 HYALINE /LPF [place] Casts UA 2 TO 5 WAXY /LPF [place] Crystals, UA NOT REPORTED None /HPF [place] Epithelial Cells UA LOADED /HPF [place] Interpretation and review of laboratory results Abnormal [place] Mucus, UA 4+ Abnormal [place] Other Observations UA NOT REPORTED NOT REQ. [place] RBC (U) [#/Vol] 5 TO 10 [place] Renal Epithelial, UA NOT REPORTED 0 /HPF [place] Trichomonas, UA NOT REPORTED None [place] WBC, UA 10 TO 20 0 /HPF [place] Yeast, UA NOT REPORTED None [place] - [place] Otheron 06-13-2019 Interpretation and review of laboratory results Abnormal [place] Immature granulocytes (Bld) [#/Vol] NOT REPORTED 0 % [place] , Urineon 0 Beta HCG ( test) Ql (U) Negative NEGATIVE [place] Urinalysis, reflex to micros copicon 06-13-2019 Bilirubin Urine 3+ Abnormal NEGATIVE [place] Color, UA BROWN Abnormal YELLOW [place] Glucose, Ur Negative NEGATIVE [place] Interpretation and review of laboratory results Abnormal [place] Ketones Ql (U) MODERATE Abnormal NEGATIVE [place] Leukocyte esterase Test strip Ql (U) 1+ Abnormal NEGATIVE [place] Nitrite, Urine Positive Abnormal NEGATIVE [place] pH, UA 5.0 [place] Protein (U) [Mass/Vol] 1+ Abnormal NEGATIVE [place] Specific [place], UA 1.020 [place] Turbidity UA CLEAR CLEAR [place] Urinalysis Comments [place] Urine Hgb TRACE Abnormal NEGATIVE [place] Urobilinogen, Urine 12 mg/dL Abnormal Normal [place] Vital Signs Date Time Vital Sign Value Performing Clinician Facility 10-05-2023 21:00-0400 Body temperature 99.61 [degF] Violet Juarez MD Work Phone: [facility] 10-05-2023 21:00-0400 Diastolic blood pressure 68 mm[Hg] Violet Juarez MD Work Phone: [facility] 10-05-2023 21:00-0400 Heart rate 93 /min Violet Juarez MD Work Phone: [facility] 10-05-2023 21:00-0400 Respiratory rate 16 /min Violet Juarez MD Work Phone: [facility] 10-05-2023 21:00-0400 SaO2% (BldA) [Mass fraction] 97 % Violet Juarez MD Work Phone: [facility] 10-05-2023 21:00-0400 Systolic blood pressure 114 mm[Hg] Violet Juarez MD Work Phone: [facility] 05-13-2023 11:27-0500 Body temperature 98.6 [degF] Jonathan Martinez [facility] 05-13-2023 11:27-0500 Diastolic blood pressure 78 mm[Hg] Jonathan Martinez [facility] 05-13-2023 11:27-0500 Heart rate 83 /min Jonathan Martinez [facility] 05-13-2023 11:27-0500 Respiratory rate 18 /min Jonathan Martinez [facility] 05-13-2023 11:27-0500 SaO2% (BldA) [Mass fraction] 97 % Jonathan Martinez [facility] 05-13-2023 11:27-0500 Systolic blood pressure 113 mm[Hg] Jonathan Martinez [facility] 05-11-2023 21:49-0500 Body temperature 98.06 [degF] [facility] 05-11-2023 21:49-0500 Diastolic blood pressure 84 mm[Hg] [facility] 05-11-2023 21:49-0500 Heart rate 105 /min [facility] 05-11-2023 21:49-0500 Respiratory rate 17 /min [facility] 05-11-2023 21:49-0500 SaO2% (BldA) [Mass fraction] 97 % [facility] 05-11-2023 21:49-0500 Systolic blood pressure 130 mm[Hg] [facility] 05-10-2023 11:41-0500 Body height 160 cm Chet Berumen DO Work Phone: [facility] 05-10-2023 11:41-0500 Body mass index (BMI) [Ratio] 44.29 kg/m2 Chet Berumen Work Phone: [facility] 05-10-2023 11:41-0500 Body temperature 97.9 [degF] Chet Berumen DO Work Phone: [facility] 05-10-2023 11:41-0500 Body weight 113.4 kg Chet Berumen DO Work Phone: [facility] 05-10-2023 11:41-0500 Diastolic blood pressure 76 mm[Hg] Chet Berumen DO Work Phone: [facility] 05-10-2023 11:41-0500 Heart rate 94 /min Chet Berumen Work Phone: [facility] 05-10-2023 11:41-0500 Respiratory rate 18 /min Chet Berumen Work Phone: [facility] 05-10-2023 11:41-0500 SaO2% (BldA) [Mass fraction] 96 % Chet Berumen Work Phone: [employer] 05-10-2023 11:41-0500 Systolic blood pressure 146 mm[Hg] Chet Berumen DO Work Phone: [employer] 09-04-2022 11:27-0400 Body height 160 cm Erin Lacy MD Work Phone: [employer] 09-04-2022 11:27-0400 Body mass index (BMI) [Ratio] 44.99 kg/m2 Erin Lacy MD Work Phone: [employer] 09-04-2022 11:27-0400 Body temperature 98.2 [degF] Erin Lacy MD Work Phone: [employer] 09-04-2022 11:27-0400 Body weight 115.21 kg Erin Lacy MD Work Phone: [employer] 09-04-2022 11:27-0400 Diastolic blood pressure 71 mm[Hg] Erin Lacy MD Work Phone: [employer] 09-04-2022 11:27-0400 Heart rate 88 /min Erin Lacy MD Work Phone: [employer] 09-04-2022 11:27-0400 Respiratory rate 18 /min Erin Lacy MD Work Phone: [employer] 09-04-2022 11:27-0400 SaO2% (BldA) [Mass fraction] 97 % Erin Lacy MD Work Phone: [employer] 09-04-2022 11:27-0400 Systolic blood pressure 124 mm[Hg] Erin Lacy MD Work Phone: [employer] 06-29-2022 09:49-0400 Diastolic blood pressure 57 mm[Hg] Todd Bing [facility] 06-29-2022 09:49-0400 Heart rate 73 /min Todd Bing [facility] 06-29-2022 09:49-0400 Mean blood pressure 76 mm[Hg] Todd Bing [facility] 06-29-2022 09:49-0400 Respiratory rate 16 /min Todd Bing [facility] 06-29-2022 09:49-0400 Systolic blood pressure 113 mm[Hg] Todd Bing [facility] 05-19-2022 19:28-0400 Body height 160 cm Erin Lacy MD Work Phone: [employer] 05-19-2022 19:28-0400 Body mass index (BMI) [Ratio] 45.17 kg/m2 Erin Lacy MD Work Phone: [employer] 05-19-2022 19:28-0400 Body weight 115.67 kg Erin Lacy MD Work Phone: [employer] 05-19-2022 19:25-0400 Body temperature 98.29 [degF] Erin Lacy MD Work Phone: [employer] 05-19-2022 19:25-0400 Diastolic blood pressure 68 mm[Hg] Erin Lacy MD Work Phone: [employer] 05-19-2022 19:25-0400 Heart rate 78 /min Erin Lacy MD Work Phone: [employer] 05-19-2022 19:25-0400 Respiratory rate 16 /min Erin Lacy MD Work Phone: [employer] 05-19-2022 19:25-0400 SaO2% (BldA) [Mass fraction] 98 % Erin Lacy MD Work Phone: [employer] 05-19-2022 19:25-0400 Systolic blood pressure 110 mm[Hg] Erin Lacy MD Work Phone: [employer] 05-11-2022 19:17-0500 Body height 160 cm Anuj Quinn MD Work Phone: [employer] 05-11-2022 19:17-0500 Body mass index (BMI) [Ratio] 45.06 kg/m2 Anuj Quinn MD Work Phone: [employer] 05-11-2022 19:17-0500 Body temperature 98.01 [degF] Anuj Quinn MD Work Phone: [employer] 05-11-2022 19:17-0500 Body weight 115.39 kg Anuj Quinn MD Work Phone: [employer] 05-11-2022 19:17-0500 Diastolic blood pressure 91 mm[Hg] Anuj Quinn MD Work Phone: [email or web address] [facility] 05-11-2022 19:17-0500 Heart rate 78 /min Anuj Quinn MD Work Phone: [employer] 05-11-2022 19:17-0500 Respiratory rate 18 /min Anuj Quinn MD Work Phone: [facility] 05-11-2022 19:17-0500 SaO2% (BldA) [Mass fraction] 96 % Anuj Quinn MD Work Phone: [employer] 05-11-2022 19:17-0500 Systolic blood pressure 121 mm[Hg] Anuj Quinn MD Work Phone: [employer] 10-12-2021 18:31-0400 Heart rate 93 /min Rishabh Mancini MD Work Phone: [employer] 10-12-2021 18:31-0400 Respiratory rate 16 /min Rishabh Mancini MD Work Phone: [employer] 10-12-2021 18:31-0400 SaO2% (BldA) [Mass fraction] 97 % Rishabh Mancini MD Work Phone: [employer] 10-12-2021 18:12-0400 Body height 160 cm Rishabh Mancini MD Work Phone: [employer] 10-12-2021 18:12-0400 Body mass index (BMI) [Ratio] 47.12 kg/m2 Rishabh Mancini MD Work Phone: [employer] 10-12-2021 18:12-0400 Body temperature 99.19 [degF] Rishabh Mancini MD Work Phone: [employer] 10-12-2021 18:12-0400 Body weight 120.66 kg Rishabh Mancini MD Work Phone: [facility] [employer] 10-12-2021 18:12-0400 Diastolic blood pressure 77 mm[Hg] Rishabh Mancini MD Work Phone: [facility] 10-12-2021 18:12-0400 Systolic blood pressure 126 mm[Hg] Rishabh Mancini MD Work Phone: [facility] 07-22-2021 10:38-0400 Body height 160 cm Clark Moser MD Work Phone: [facility] [employer] 07-22-2021 10:38-0400 Body mass index (BMI) [Ratio] 47.63 kg/m2 Clark [facility] 07-22-2021 10:38-0400 Body temperature 97.3 [degF] Clark [facility]oser [facility] 07-22-2021 10:38-0400 Body weight 121.97 kg Clark [facility]oser [facility] 07-22-2021 10:38-0400 Diastolic blood pressure 88 mm[Hg] Clark [facility]oser [facility] 07-22-2021 10:38-0400 Heart rate 104 /min Clark [facility]oser [facility] 07-22-2021 10:38-0400 Respiratory rate 18 /min Clark [facility]oser [facility] 07-22-2021 10:38-0400 SaO2% (BldA) [Mass fraction] 95 % Clark [facility]oser [facility] 07-22-2021 10:38-0400 Systolic blood pressure 126 mm[Hg] Clark Moser MD Work Phone: [facility] [employer] 05-15-2021 09:11-0500 Body height 160 cm Angelito Harvey [facility] 05-14-2021 10:41-0500 Body height 160 cm Farhat Vang MD Work Phone: [facility] 05-14-2021 10:41-0500 Body mass index (BMI) [Ratio] 44.96 kg/m2 Farhat Vang MD Work Phone: [facility] 05-14-2021 10:41-0500 Body temperature 97.81 [degF] Farhat Vang MD Work Phone: [facility] 05-14-2021 10:41-0500 Body weight 115.12 kg Farhat Vang MD Work Phone: [facility] 05-14-2021 10:41-0500 Diastolic blood pressure 78 mm[Hg] Farhat Vang MD Work Phone: [facility] 05-14-2021 10:41-0500 Heart rate 98 /min Farhat Vang MD Work Phone: [facility] 05-14-2021 10:41-0500 Respiratory rate 18 /min Farhat Vang MD Work Phone: [facility] 05-14-2021 10:41-0500 SaO2% (BldA) [Mass fraction] 97 % Farhat Vang MD Work Phone: [facility] 05-14-2021 10:41-0500 Systolic blood pressure 124 mm[Hg] Farhat Vang MD Work Phone: [facility] 04-16-2021 10:15-0500 Body height 160 cm Farhat Vang MD Work Phone: [facility] 04-16-2021 10:15-0500 Body mass index (BMI) [Ratio] 44.44 kg/m2 Farhat Vang MD Work Phone: [facility] 04-16-2021 10:15-0500 Body temperature 98.01 [degF] Farhat Vang MD Work Phone: [facility] 04-16-2021 10:15-0500 Body weight 113.81 kg Farhat Vang MD Work Phone: [facility] 04-16-2021 10:15-0500 Diastolic blood pressure 78 mm[Hg] Farhat Vang MD Work Phone: [facility] 04-16-2021 10:15-0500 Heart rate 100 /min aFrhat Vang MD Work Phone: [facility] 04-16-2021 10:15-0500 Respiratory rate 18 /min Farhat Vang MD Work Phone: [facility] 04-16-2021 10:15-0500 SaO2% (BldA) [Mass fraction] 96 % Farhat Vang MD Work Phone: [facility] 04-16-2021 10:15-0500 Systolic blood pressure 122 mm[Hg] Farhat Vang MD Work Phone: [facility] 03-23-2021 12:40-0500 Body height 160 cm Anuj Quinn MD Work Phone: [facility] [employer] 03-23-2021 12:40-0500 Body mass index (BMI) [Ratio] 44.46 kg/m2 Anuj Quinn MD Work Phone: [facility] [employer] 03-23-2021 12:40-0500 Body temperature 99.7 [degF] Anuj Quinn MD Work Phone: [facility] [employer] 03-23-2021 12:40-0500 Body weight 113.85 kg Anuj Quinn MD Work Phone: [facility] [employer] 03-23-2021 12:40-0500 Diastolic blood pressure 74 mm[Hg] Anuj Quinn MD Work Phone: [facility] [employer] 03-23-2021 12:40-0500 Heart rate 107 /min Anuj Quinn MD Work Phone: [facility] [employer] 03-23-2021 12:40-0500 Respiratory rate 16 /min Anuj Quinn MD Work Phone: [facility] [employer] 03-23-2021 12:40-0500 SaO2% (BldA) [Mass fraction] 96 % Anuj Quinn MD Work Phone: [facility] 03-23-2021 12:40-0500 Systolic blood pressure 131 mm[Hg] Anuj Quinn MD Work Phone: [facility] 01-15-2021 10:43-0500 Body height 160 cm Holland Ann MD Work Phone: [facility] 01-15-2021 10:43-0500 Body mass index (BMI) [Ratio] 42.55 kg/m2 Holland Ann MD Work Phone: [facility] 01-15-2021 10:43-0500 Body temperature 97.39 [degF] Holland Ann MD Work Phone: [facility] 01-15-2021 10:43-0500 Body weight 108.95 kg Holland Ann MD Work Phone: [facility] 01-15-2021 10:43-0500 Diastolic blood pressure 66 mm[Hg] Holland Ann MD Work Phone: [facility] 01-15-2021 10:43-0500 Heart rate 101 /min Holland Ann MD Work Phone: [facility] 01-15-2021 10:43-0500 SaO2% (BldA) [Mass fraction] 96 % Holland Ann MD Work Phone: [facility] 01-15-2021 10:43-0500 Systolic blood pressure 112 mm[Hg] Holland Ann MD Work Phone: [facility] 12-27-2020 18:15-0400 Body temperature 98.49 [degF] Wayne Springer MD Work Phone: [employer] Work Phone: 12-27-2020 18:15-0400 Diastolic blood pressure 77 mm[Hg] Wayne Springer MD Work Phone: [employer] Work Phone: Comment on above: Simultaneous filing. User may not have s een previous data. 12-27-2020 18:15-0400 Heart rate 98 /min Wayne Springer MD Work Phone: [employer] Work Phone: 12-27-2020 18:15-0400 Respiratory rate 20 /min Wayne Springer MD Work Phone: [employer] Work Phone: 12-27-2020 18:15-0400 SaO2% (BldA) [Mass fraction] 95 % Wayne Springer MD Work Phone: [employer] Work Phone: Comment on above: Simultaneous filing. User may not have s een previous data. 12-27-2020 18:15-0400 Systolic blood pressure 107 mm[Hg] Wayne Springer MD Work Phone: [employer] Work Phone: Comment on above: Simultaneous filing. User may not have s een previous data. 11-20-2020 21:07-0400 Body height 160 cm Anuj Quinn MD Work Phone: [employer] Work Phone: 11-20-2020 21:07-0400 Body mass index (BMI) [Ratio] 38.62 kg/m2 Anuj Quinn MD Work Phone: [employer] Work Phone: 11-20-2020 21:07-0400 Body temperature 98.6 [degF] Anuj Quinn MD Work Phone: [employer] Work Phone: 11-20-2020 21:07-0400 Body weight 98.88 kg Anuj Quinn MD Work Phone: [employer] Work Phone: 11-20-2020 21:07-0400 Diastolic blood pressure 65 mm[Hg] Anuj uQinn MD Work Phone: [employer] Work Phone: 11-20-2020 21:07-0400 Heart rate 84 /min Anuj Quinn MD Work Phone: [employer] Work Phone: 11-20-2020 21:07-0400 Respiratory rate 16 /min Anuj Quinn MD Work Phone: [employer] Work Phone: 11-20-2020 21:07-0400 SaO2% (BldA) [Mass fraction] 97 % Anuj Quinn MD Work Phone: [employer] Work Phone: 11-20-2020 21:07-0400 Systolic blood pressure 113 mm[Hg] Anuj Quinn MD Work Phone: [employer] Work Phone: 11-07-2020 16:28-0400 Body height 160 cm Nicholas Roger MD Work Phone: [employer] Work Phone: 11-07-2020 16:28-0400 Body mass index (BMI) [Ratio] 38.26 kg/m2 Nicholas Roger MD Work Phone: [employer] Work Phone: 11-07-2020 16:28-0400 Body temperature 98.8 [degF] Nicholas Roger MD Work Phone: [employer] Work Phone: 11-07-2020 16:28-0400 Body weight 97.98 kg Nicholas Roger MD Work Phone: [employer] Work Phone: 11-07-2020 16:28-0400 Diastolic blood pressure 71 mm[Hg] Nicholas Roger MD Work Phone: [employer] Work Phone: 11-07-2020 16:28-0400 Heart rate 98 /min Nicholas Roger MD Work Phone: [employer] Work Phone: 11-07-2020 16:28-0400 Respiratory rate 18 /min Nicholas Roger MD Work Phone: [employer] Work Phone: 11-07-2020 16:28-0400 SaO2% (BldA) [Mass fraction] 94 % Nicholas Roger MD Work Phone: [employer] Work Phone: 11-07-2020 16:28-0400 Systolic blood pressure 120 mm[Hg] Nicholas Roger MD Work Phone: [employer] Work Phone: 07-09-2020 10:52-0400 Body height 160 cm Zelda Bautista CNP Work Phone: [facility] 07-09-2020 10:52-0400 Body mass index (BMI) [Ratio] 41.27 kg/m2 Zelda Bautista CNP Work Phone: [facility] 07-09-2020 10:52-0400 Body weight 105.69 kg Zelda Bautista CNP Work Phone: [facility] 07-09-2020 10:52-0400 Diastolic blood pressure 70 mm[Hg] Zelda Bautista CNP Work Phone: [facility] 07-09-2020 10:52-0400 Heart rate 97 /min Zelda Bautista CNP Work Phone: [facility] 07-09-2020 10:52-0400 Systolic blood pressure 101 mm[Hg] Zelda Bautista CNP Work Phone: [facility] 06-24-2020 09:48-0400 Body mass index (BMI) [Ratio] 40.92 kg/m2 Anuj Quinn MD Work Phone: [employer] Work Phone: 06-24-2020 09:48-0400 Body temperature 97.9 [degF] Anuj Quinn MD Work Phone: [employer] Work Phone: 06-24-2020 09:48-0400 Body weight 104.78 kg Anuj Quinn MD Work Phone: [employer] Work Phone: 06-24-2020 09:48-0400 Diastolic blood pressure 64 mm[Hg] Anuj Quinn MD Work Phone: [employer] Work Phone: 06-24-2020 09:48-0400 Heart rate 120 /min Anuj Quinn MD Work Phone: [employer] Work Phone: 06-24-2020 09:48-0400 Respiratory rate 18 /min Anuj Quinn MD Work Phone: [employer] Work Phone: 06-24-2020 09:48-0400 SaO2% (BldA) [Mass fraction] 100 % Anuj Quinn MD Work Phone: [employer] Work Phone: 06-24-2020 09:48-0400 Systolic blood pressure 115 mm[Hg] Anuj Quinn MD Work Phone: [employer] Work Phone: 06-09-2020 10:44-0400 Body height 160 cm Lelo Gallegos MD Work Phone: [facility] 06-09-2020 10:44-0400 Body mass index (BMI) [Ratio] 41.27 kg/m2 Lelo Gallegos MD Work Phone: [facility] 06-09-2020 10:44-0400 Body weight 105.69 kg Lelo Gallegos MD Work Phone: [facility] 06-09-2020 10:44-0400 Diastolic blood pressure 75 mm[Hg] Lelo Gallegos MD Work Phone: [facility] 06-09-2020 10:44-0400 Heart rate 116 /min Lelo Gallegos MD Work Phone: [facility] 06-09-2020 10:44-0400 Systolic blood pressure 110 mm[Hg] Lelo Gallegos MD Work Phone: [facility] 03-26-2020 22:17-0500 Pulse (Heart Rate) 98 /min Brie Moreno Gendel [facility] 03-26-2020 21:43-0500 BP Diastolic 66 mm[Hg] Brie [facility] [place] [facility] [place] 03-26-2020 21:43-0500 BP Systolic 99 mm[Hg] [facility] [place] 03-26-2020 21:43-0500 Pulse Oximetry 95 % [facility] [place] 03-26-2020 20:50-0500 Respiratory Rate 16 /min [facility] [place] 03-26-2020 20:13-0500 BMI (Body Mass Index) 40.14 kg/m2 [facility] [place] [place] 03-26-2020 20:13-0500 Body Temperature 98.2 [degF] [facility] [place] 03-26-2020 20:13-0500 Body weight 102.78 kg Brie Jorgensen [facility] , [place] 02-15-2020 18:22-0500 BMI (Body Mass Index) 39.75 kg/m2 Brie PhanZola [facility] 02-15-2020 18:22-0500 Body Temperature 98.6 [degF] [facility] [place] 02-15-2020 18:22-0500 Body weight 101.79 kg Brie Jorgensen [facility] , [place] 02-15-2020 18:22-0500 BP Diastolic 78 mm[Hg] [facility] [place] 02-15-2020 18:22-0500 BP Systolic 127 mm[Hg] [facility] [place] [facility] [place] 02-15-2020 18:22-0500 Height 160 cm Brie Moreno [facility] , [place] 02-15-2020 18:22-0500 Pulse (Heart Rate) 92 /min Brie Josh [facility] 02-15-2020 18:22-0500 Pulse Oximetry 99 % Brie Moreno [facility] , [place] 02-15-2020 18:22-0500 Respiratory Rate 20 /min Brie Moreno [facility], [place] 11-20-2019 18:48-0400 BP Diastolic 75 mm[Hg] [facility], [place] 11-20-2019 18:48-0400 BP Systolic 128 mm[Hg] [facility] 11-20-2019 18:48-0400 Pulse (Heart Rate) 83 /min [facility], [place] 11-20-2019 18:48-0400 Pulse Oximetry 97 % [facility], [place] 11-20-2019 18:48-0400 Respiratory Rate 18 /min [facility] 11-20-2019 17:00-0400 BMI (Body Mass Index) 36.31 kg/m2 [facility], [place] 11-20-2019 17:00-0400 Body Temperature 98.4 [degF] [facility] 11-20-2019 17:00-0400 Body weight 92.99 kg [facility] 11-03-2019 11:37-0400 BMI (Body Mass Index) 34.47 kg/m2 [facility] 11-03-2019 11:37-0400 Body Temperature 98.71 [degF] [facility] 11-03-2019 11:37-0400 Body weight 88.27 kg [facility], [place] 11-03-2019 11:37-0400 BP Diastolic 66 mm[Hg] [facility] 11-03-2019 11:37-0400 BP Systolic 117 mm[Hg] [facility], [place] 11-03-2019 11:37-0400 Height 160 cm Wayne [facility], [place] 11-03-2019 11:37-0400 Pulse (Heart Rate) 87 /min [place] 11-03-2019 11:37-0400 Pulse Oximetry 99 % [place] 11-03-2019 11:37-0400 Respiratory Rate 20 /min Wayne [place] 08-13-2019 19:42-0400 BMI (Body Mass Index) 31 kg/m2 [facility] 08-13-2019 19:42-0400 Body Temperature 98.6 [degF] [facility] 08-13-2019 19:42-0400 Body weight 79.38 kg [facility] 08-13-2019 19:42-0400 Height 160 cm [facility] 08-13-2019 19:40-0400 BP Diastolic 60 mm[Hg] [facility] 08-13-2019 19:40-0400 BP Systolic 156 mm[Hg] [facility] 08-13-2019 19:40-0400 Pulse (Heart Rate) 138 /min [facility] 08-13-2019 19:40-0400 Pulse Oximetry 98 % [facility] 08-13-2019 19:40-0400 Respiratory Rate 16 /min [facility] 06-17-2019 12:45-0400 Respiratory Rate 18 /min [facility] 06-17-2019 07:54-0400 Body Temperature 97.81 [degF] [facility] 06-17-2019 07:54-0400 BP Diastolic 66 mm[Hg] [facility] 06-17-2019 07:54-0400 BP Systolic 99 mm[Hg] [facility] 06-17-2019 07:54-0400 Pulse (Heart Rate) 82 /min [facility] 06-17-2019 07:54-0400 Pulse Oximetry 94 % [facility] 06-14-2019 08:15-0400 BMI (Body Mass Index) 32.92 kg/m2 [facility] 06-14-2019 08:15-0400 Body weight 81.65 kg [facility] 06-14-2019 08:15-0400 Height 157.5 cm [facility] 06-14-2019 04:20-0400 Pulse (Heart Rate) 83 /min Brie [facility] [place] [place] 06-14-2019 04:05-0400 BP Diastolic 58 mm[Hg] Brie [facility] [place] [facility] [place] 06-14-2019 04:05-0400 BP Systolic 95 mm[Hg] Brie [facility] [place] [facility] [place] 06-14-2019 04:05-0400 Pulse Oximetry 95 % [facility] [place] [facility] [place] 06-14-2019 01:12-0400 Respiratory Rate 18 /min [facility] [place] 06-14-2019 00:10-0400 Body Temperature 100.51 [degF] [facility] [place] 06-13-2019 22:00-0400 BMI (Body Mass Index) 32.31 kg/m2 [facility] [place] 06-13-2019 22:00-0400 Body weight 82.74 kg B[facility] [place] [facility] [place] 06-13-2019 22:00-0400 Height 160 cm B[facility] [place] [facility] [place] 04-28-2019 19:58-0500 Body Temperature 98.8 [degF] [facility] [place] 04-28-2019 19:58-0500 BP Diastolic 70 mm[Hg] [facility] [place] [facility] [place] 04-28-2019 19:58-0500 BP Systolic 98 mm[Hg] [facility] [place] [facility] [place] 04-28-2019 19:58-0500 Pulse (Heart Rate) 119 /min [facility] [place] 04-28-2019 19:58-0500 Pulse Oximetry 100 % Roslyn PhanZola [facility] [place] , [place] 04-28-2019 19:58-0500 Respiratory Rate 30 /min [facility] [place] 04-28-2019 19:54-0500 BMI (Body Mass Index) 30.65 kg/m2 [facility] [place] [place] 04-28-2019 19:54-0500 Body weight 78.47 [facility] [place] 04-28-2019 19:54-0500 Height 160 cm Roslyn Keating [place], [place] Encounters Encounter Date Encounter Type Care Provider Facility Start: 11-23-2023 End: 11-23-2023 ambulatory MARK ELIANA Not Available Start: 11-09-2023 End: 11-09-2023 ambulatory MARK ELIANA Not Available Start: 10-26-2023 End: 10-26-2023 ambulatory MARK ELIANA Not Available Start: 10-05-2023 End: 10-05-2023 ambulatory VIOLET Ramos [facility] Start: 10-05-2023 End: 10-05-2023 Subsequent hospital visit by physician Violet Juarez MD Work Phone: [id number] Start: 10-05-2023 End: 10-05-2023 Emergency department patient visit WOLCOTT Richard [facility] Start: 10-05-2023 End: 10-05-2023 Emergency department patient visit LINDA LANDRYE [facility] Start: 09-12-2023 End: 09-12-2023 ambulatory MARK ELIANA Not Available Start: 08-16-2023 End: 08-16-2023 ambulatory MARK ELIANA Not Available Start: 07-26-2023 End: 07-26-2023 ambulatory BLAKE KAUFFMAN [facility] Start: 07-19-2023 End: 07-19-2023 ambulatory MARK ELIANA Not Available Start: 06-21-2023 End: 06-21-2023 ambulatory MARK ELIANA Not Available Start: 05-20-2023 End: 05-20-2023 ambulatory MARK ELIANA Not Available Start: 05-13-2023 End: 05-13-2023 Emergency department patient visit Jonathan Michelle [place] Start: 05-13-2023 End: 05-13-2023 Emergency department patient visit Jonathan Martinez [facility] Start: 05-11-2023 End: 05-12-2023 Emergency department patient visit Zac Fields [place] Start: 05-11-2023 End: 05-11-2023 Emergency department patient visit Zac Herreraailin [facility] Start: 05-10-2023 End: 05-10-2023 Emergency department patient visit LNIDA SHEPPARD [facility] Start: 05-10-2023 End: 05-10-2023 Emergency department patient visit Chet Berumen DO Work Phone: [facility] ED Comment on above: Toothache (Primary D x); Dental decay Start: 12-27-2022 End: 12-27-2022 ambulatory MARK SALCEDOZIO [facility] Start: 11-23-2022 End: 11-23-2022 ambulatory MARK SALCEDOZIO [facility] Start: 09-04-2022 End: 09-04-2022 Emergency department patient visit Erin Lacy MD Work Phone: [facility] ED Comment on above: Sprain of right ankl e, unspecified ligament, initial encounter (Primary Dx) Start: 06-29-2022 End: 06-30-[address] MARK DUMONT . Facility: Start: 06-29-2022 End: 06-30-2022 ambulatory Linda Sheppard [place] Start: 06-29-2022 End: 06-29-2022 Pain Management Todd Smart [facility] Start: 06-14-2022 End: 06-14-[address] MARK DUMONT . Facility: Start: 05-19-2022 End: 05-19-2022 Emergency department patient visit Erin Lacy MD Work Phone: [facility] ED Comment on above: Dry socket (Primary Dx) Start: 05-11-2022 End: 05-11-2022 Emergency department patient visit Anuj Quinn MD Work Phone: [facility] ED Comment on above: Masseter muscle spas m (Primary Dx); Other acute postprocedural pain Start: 03-30-[address] MARK DUMONT . Facili ty:[facility] Start: 03-29-2022 End: 03-29-2022 Subsequent hospital visit by physician [facility] Start: 10-12-2021 End: 10-12-2021 Emergency department patient visit Rishabh Mancini MD Work Phone: [facility] ED Comment on above: Acute bronchitis, un specified organism (Primary Dx) Start: 07-22-2021 End: 07-22-2021 Emergency department patient visit Clark Moser MD Work Phone: [facility] ED Comment on above: Acute pharyngitis, u nspecified etiology (Primary Dx) Start: 07-07-2021 ambulatory BRIE GAGE ABELINO [facility] Ambulatory Start: 06-18-2021 ambulatory [facility] Ambulatory Start: 06-17-2021 End: 06-18-2021 ambulatory [facility] Start: 05-15-2021 End: 05-19-2021 ambulatory [facility] Start: 05-15-2021 End: 05-15-2021 Nutrition therapy Farhat Vang MD Work Phone: [facility] Comment on above: Morbid obesity with body mass index (BMI) of 40.0 or higher (HCC) Start: 05-14-2021 End: 05-18-2021 ambulatory [facility] Start: 05-14-2021 End: 05-14-2021 Office outpatient visit 15 minutes Farhat Vang MD Work Phone: [facility] Comment on above: Anxiety and depressi on (Primary Dx); At risk for obstructive sleep apnea; Chronic bilateral low back pain without sciatica; Hepatitis C antibody positive in blood; Body mass index 40.0-44.9, adult (HCC); History of opioid abuse (HCC) Start: 04-16-2021 End: 04-20-2021 ambulatory [facility] Start: 04-16-2021 End: 04-16-2021 Initial preventive medicine new pt age 18-39yrs Farhat Vang MD Work Phone: [facility] Comment on above: Encounter for genera l adult medical examination with abnormal findings (Primary Dx); Anxiety and depression; History of opioid abuse (HCC); Morbid obesity with body mass index (BMI) of 40.0 or higher (HCC) Start: 04-16-2021 End: 04-16-2021 Patient encounter status Farhat Vang MD Work Phone: [facility] Start: 03-23-2021 End: 03-23-2021 Emergency department patient visit Anuj Quinn MD Work Phone: [facility] ED Comment on above: COVID-19 (Primary Dx ); Omphalitis in adult Start: 02-16-2021 End: 02-20-2021 ambulatory [facility] Start: 02-12-2021 End: 02-16-2021 ambulatory PHYSICIAN [facility] [place] Start: 02-10-2021 End: 02-14-2021 ambulatory [facility] Start: 02-02-2021 End: 02-06-2021 ambulatory PHYSICIAN [facility] Start: 01-15-2021 Documentation procedure Jeimy goodman [facility] Start: 01-15-2021 End: 01-15-2021 ambulatory HOLLAND WHIPPLE SETH [facility] Ambulatory Start: 01-15-2021 End: 01-15-2021 Office outpatient new 30 minutes Holland Ann MD Work Phone: [facility] Comment on above: Hemorrhoids, unspeci fied hemorrhoid type Start: 12-29-2020 End: 01-02-2021 ambulatory PHYSICIAN [facility] [place] Start: 12-27-2020 End: 12-27-2020 Emergency department patient visit Wayne Springer MD Work Phone: [facility] ED Comment on above: Viral syndrome (Prim prakash Dx) Start: 11-20-2020 End: 11-20-2020 Emergency department patient visit Anuj Quinn MD Work Phone: [facility] ED Comment on above: Strain of rhomboid m uscle, initial encounter; Chest wall muscle strain, initial encounter Start: 11-07-2020 End: 11-07-2020 Emergency department patient visit Nicholas Roger MD Work Phone: [facility] ED Comment on above: Viral URI (Primary D x) Start: 08-28-2020 End: 08-30-2020 Evaluation and management of inpatient ROSLYN [facility] Start: 08-25-2020 End: 08-25-2020 ambulatory PHYSICIAN [facility] [place] Start: 07-29-2020 End: 08-02-2020 ambulatory PHYSICIAN [facility] [place] Start: 07-22-2020 End: 07-26-2020 ambulatory [facility] Start: 07-22-2020 End: 07-22-2020 Telemedicine consultation with patient Lelo Gallegos MD Work Phone: [facility] Comment on above: Diet controlled gest ational diabetes mellitus (GDM) in third trimester Start: 07-10-2020 ambulatory LELO ADAMS [facility] Ambulatory Start: 07-09-2020 End: 07-09-2020 ambulatory ZELDA BAUTISTA [facility] Start: 07-09-2020 End: 07-09-2020 Office outpatient visit 15 minutes Zelda Bautista [employer] Work Phone: [facility] Comment on above: Diet controlled gest ational diabetes mellitus (GDM) in third trimester (Primary Dx) Start: 06-24-2020 End: 06-24-2020 Emergency department patient visit Anuj Quinn MD Work Phone: [facility] ED Comment on above: Acute frontal sinusi tis, recurrence not specified (Primary Dx) Start: 06-10-2020 End: 06-10-2020 Nutrition therapy Lelo Gallegos Work Phone: [facility] Comment on above: Diet controlled gest ational diabetes mellitus (GDM) in second trimester Start: 06-09-2020 End: 06-09-2020 Office outpatient new 30 minutes Roslyn Stevenson MD Work Phone: [facility] Comment on above: Diet controlled gest ational diabetes mellitus (GDM) in second trimester Start: 05-27-2020 End: 05-31-2020 ambulatory PHYSICIAN [facility] [place] Start: 05-21-2020 End: 05-25-2020 ambulatory PHYSICIAN [facility] [place] Start: 03-26-2020 End: 03-26-2020 Emergency department patient visit Brie Moreno Work Phone: [facility] ED Comment on above: Atypical pneumonia ( Primary Dx) Start: 02-15-2020 End: 02-15-2020 Emergency department patient visit Brie Moreno Work Phone: [facility] ED Comment on above: Pain, dental (Primar y Dx); Acute gingivitis; Alveolar osteitis Start: 11-20-2019 End: 11-20-2019 Emergency department patient visit Anuj Quinn Work Phone: [facility] ED Comment on above: Bacterial vaginosis (Primary Dx); Trichimoniasis; Furuncle of left axilla Start: 11-03-2019 End: 11-03-2019 Emergency department patient visit Wayne Maryuri Springer Work Phone: [facility] ED Comment on above: Poison arabella (Primary Dx) Start: 08-20-2019 End: 08-21-2019 Patient encounter procedure HODA MADERA [facility] Start: 08-20-2019 End: 08-20-2019 Subsequent hospital visit by physician [facility] Start: 08-13-2019 End: 08-13-2019 Emergency department patient visit Christian Martinez Work Phone: [facility] Emergency Department Comment on above: Heroin abuse (HCC) ( Primary Dx) Start: 06-20-2019 End: 06-20-2019 Patient encounter procedure Alisa Palencia Work Phone: [facility] Comment on above: Hepatitis C virus in fection without hepatic coma, unspecified chronicity (Primary Dx) Start: 06-18-2019 End: 06-18-2019 Documentation procedure Taryn Torres [facility] Start: 06-18-2019 Follow-up encounter Taryn Cartagena [facility] Comment on above: Transition Of Care Start: 06-18-2019 End: 06-18-2019 Patient encounter procedure Taryn Stokes Torres [facility] Start: 06-14-2019 End: 06-17-2019 Evaluation and management of inpatient [facility] Work Phone: [facility] Comment on above: Elevated LFTs; IVDA (intravenous drug abuse) complicating (HCC) Start: 06-13-2019 End: 06-14-2019 Emergency department patient visit Brie Benjamin Josh Work Phone: [facility] ED Comment on above: Abdominal pain, unsp ecified abdominal location (Primary Dx); Urinary tract infection with hematuria, site unspecified; Viral hepatitis without hepatic coma, unspecified chronicity, unspecified viral hepatitis type; Polysubstance abuse (HCC); Hyperbilirubinemia Start: 04-28-2019 End: 04-28-2019 Emergency department patient visit Roslyn Keating Work Phone: [facility] ED Comment on above: Accidental overdose of heroin, initial encounter (HCC) (Primary Dx) Start: 12-20-2016 End: 01-02-2020 Cancer cervix - screening done Lelo Gallegos MD Work Phone: [facility] Start: 12-20-2016 End: 01-02-2020 Encounter for gynecological examination (general) (routine) without abnormal findings Jeimy Tan TECHNICAL ASSOCIATE [facility] Procedures Date Procedure Procedure Detail [...] panel - Serum or Plasma Indra Matthew rPuitt Work Phone: Start: 06-14-2019 Hepatitis panel measurement nIdra Handylivan Work Phone: Start: 06-14-2019 INR in [...] Vaccine (1 of 2) [facility]ace- [place], [place] Start: 12-29-2025 Screening for malignant neoplasm of cervix Pap Smear [facility] Start: 10-31-2024 Screening for malignant neoplasm of cervix Pap Smear [facility] Start: 12-30-2023 Screening for malignant neoplasm of cervix [facility] Start: 09-06-2024 Respiratory Syncytial Virus (RSV) or age 60 yrs+ (1 - Risk 1-dose series) Respiratory Syncytial Virus (RSV) or age 60 yrs+ (1 - Risk 1-dose series) [facility] Start: 11-10-2023 End: 11-10-2023 Patient encounter procedure 11/10/2023 10:00 AM EDT Routine [facility] [address] [place] [address] [facility] Start: 10-27-2023 End: 10-27-2023 Patient encounter procedure 10/27/2023 10:00 AM EDT Routine [facility] [address] [place] [address] [facility] Start: 10-13-2023 End: 10-13-2023 Patient encounter procedure 10/13/2023 10:00 AM EDT Rout[facility] [address] [place] [address] Return in about 2 weeks (around 10/04/2023) for twins, dopplers, growth, transvag. [facility] Comment on above: Return in about 2 weeks (around ) for twins, dopplers, growth, transvag. Start: 10-07-2023 Tdap Vaccine during Tdap Vaccine during [facility] Start: 10-06-2023 Influenza vaccination Flu vaccine (#1) [facility] Start: 10-31-2022 Screening for malignant neoplasm of cervix [facility] [employer] Work Phone: Start: 10-05-2022 Influenza vaccination Flu vaccine (#1) [facility] Start: 04-16-2022 History and physical examination, annual for health maintenance Wellness Visit [facility] Start: 02-13-2022 Depression Remission Assessment (PHQ9) Depression Remission Assessment (PHQ9) [facility] Start: 12-29-2021 History and physical examination, annual for health maintenance Wellness Visit [facility] Start: 11-12-2021 End: 11-12-2021 Patient encounter procedure 11/12/2021 Office Visit Primary Care Farhat Vang MD [address] [place] [address] [facility] Start: 11-05-2021 Influenza vaccination [facility] Start: 10-05-2021 Influenza vaccination Flu vaccine (#1) [facility] Start: 06-26-2021 End: 06-26-2021 Nutrition therapy 06/26/2021 Nutrition Nutrition Farhat Vang MD [address] [place] [address] [facility] Start: 05-15-2021 End: 05-15-2021 Nutrition therapy 05/15/2021 Nutrition Nutrition Angelito Harvey RD [facility] Start: 05-14-2021 End: 05-14-2021 Patient encounter procedure 05/14/2021 Office Visit Primary Care Farhat Vang MD [address] [place] [address] [facility] Start: 03-17-2021 Depression screening using PHQ-9 (Patient Health Questionnaire 9) score Depression Screening (PHQ9) [facility] Start: 01-15-2021 Depression Remission Assessment (PHQ9) Depression Remission Assessment (PHQ9) [facility] Start: 01-09-2021 Hemoglobin A1c measurement A1C [facility] Start: 12-09-2020 HbA1c (Bld) [Mass fraction] A1C [facility] Start: 12-09-2020 Hemoglobin A1c measurement A1C [facility] Start: 11-05-2020 Influenza vaccination [facility] Start: 10-31-2020 History and physical examination, annual for health maintenance Wellness Visit [facility] Start: 08-28-2020 End: 08-28-2020 Admission to same day surgery center 08/28/2020 Surgery Obstetrics Roslyn Stevenson MD [facility] Blaise [address] [place] [address] [phone] SECTION [facility] Labor [facility] Delivery Comment on above: SECTION Start: 08-28-2020 Subsequent hospital visit by physician 08/28/2020 Hospital Encounter Obstetrics Roslyn Stevenson MD [facility] Blaise Young [facility] [place] [address] [phone] [facility] Start: 08-25-2020 End: 08-25-2020 Office Visit 08/25/2020 Office Visit Endocrinology Zelda Bautista, [employer]IE[employer]PECTOR [address] [place] [address] [phone] [facility] Start: 07-31-2020 End: 07-31-2020 Office Visit 07/31/2020 Office Visit Endocrinology Benito Krueger CNP [address] [place] [address] [phone] [facility] Start: 07-29-2020 End: 07-29-2020 Patient encounter procedure 07/29/2020 Routine Obstetrics and Gynecology Regla Dias CNM [address] [place] [phone] [facility] [employer] - An Affiliate of [facility] Start: 07-22-2020 End: 07-22-2020 Telemedicine consultation with patient 07/22/2020 Telemedicine Nutrition Lelo Gallegos MD [address] [place] [address] [phone] [facility] Start: 07-17-2020 End: 07-17-2020 Patient encounter procedure 07/17/2020 Routine Obstetrics and Gynecology Yvonne Santos MD [address] [place] [phone] [facility] [employer] - An Affiliate of [facility] Start: 07-09-2020 End: 07-09-2020 Office Visit 07/09/2020 Office Visit Endocrinology Zelda Bautista, [employer] CHIEF INSPECTOR [address] [place] [address] [phone] [facility] Start: 07-04-2020 End: 07-04-2020 Patient encounter procedure 07/04/2020 Routine Obstetrics and Gynecology Radha Pantoja MD [address] [place] [phone] [facility] [employer] - An Affiliate of [facility] Start: 06-26-2020 End: 06-26-2020 Patient encounter procedure 06/26/2020 Office Visit Endocrinology Janie Chen PA-C [address] [place] [address] [phone] [facility] Start: 06-24-2020 End: 06-24-2020 Nutrition [facility] Start: 06-19-2020 End: 06-19-2020 Routine 06/19/2020 Routine Obstetrics and Gynecology Larissa, Regla Arriaga CNM [address] [place] [phone] [facility] [employer] - An Affiliate of [facility] Start: 05-17-2020 Depression screening using PHQ-9 (Patient Health Questionnaire 9) score Depression Screening (PHQ9) [facility] Start: 2020 Screening for malignant neoplasm of cervix [facility] Start: 02-26-2020 End: 02-26-2020 Initial 02/26/2020 Initial Obstetrics and Gynecology Jai Huerta MD [address] [place], [place] [phone] [facility] [employer] Start: 11-06-2019 Influenza vaccination [facility] [place] Start: 11-06-2019 Influenza vaccination given [facility] Start: 08-06-2019 Screening for malignant neoplasm of cervix Pap Smear [facility] Start: 06-20-2019 End: 06-20-2019 Office Visit 06/20/2019 Office Visit Transition of Care Alisa Palencia, [employer] CHIEF INSPECTOR [address] [facility] [address] [place] [address] [phone] [facility] Start: 11-05-2018 Influenza vaccination Flu vaccine (#1) [place] Start: 11-05-2018 Influenza vaccination given Sequential Influenza Vaccine (#1) [facility] Start: 03-21-2015 Cervical cancer screen Cervical cancer screen [place] Start: 03-21-2015 Screening for malignant neoplasm of cervix Cervical cancer screen [place] Start: 04-05-2014 Screening for malignant neoplasm of cervix Pap smear [facility] Start: 2009 DTaP/Tdap/Td vaccine (1 - Tdap) DTaP/Tdap/Td vaccine (1 - Tdap) [place] Start: 2009 Hepatitis B vaccine (1 of 3 - Risk 3-dose series) Hepatitis B vaccine (1 of 3 - Risk 3-dose series) [facility] Work Phone: Start: 2008 Hepatitis C screening Hepatitis C screen [facility] Start: 2006 COVID-19 Vaccine (1) COVID-19 Vaccine (1) [facility] Start: 2005 HIV screen HIV screen [place], [place] Start: 2005 HIV screening HIV screen [facility] Start: 2002 COVID-19 Vaccine (1) COVID-19 Vaccine (1) [facility] Start: 2002 Depression Monitoring Depression Monitoring [facility] Start: 2001 DTaP/Tdap/Td vaccine (1 - Tdap) DTaP/Tdap/Td vaccine (1 - Tdap) [place] Start: 2001 DTaP/Tdap/Td vaccine (5 - Tdap) DTaP/Tdap/Td vaccine (5 - Tdap) [facility] Start: 2000 Albumin DL <= 20 mg/L (U) [Mass/Vol] Urine Microalbumin [facility] Start: 2000 Diabetic foot examination Foot Exam [facility] Start: 2000 Microalbumin measurement, urine, quantitative Urine Microalbumin [facility] Start: 2000 Ophthalmic examination and evaluation Ophthalmology Exam [facility] Start: 1996 Pneumococcal 0-64 years Vaccine (1 of 1 - PPSV23) Pneumococcal 0-64 years Vaccine (1 of 1 - PPSV23) [place] Start: 1996 Pneumococcal Vaccine: Ped or At-Risk (1 of 2 - PPSV23) Pneumococcal Vaccine: Ped or At-Risk (1 of 2 - PPSV23) [facility] Start: 1995 COVID-19 Vaccine (1) COVID-19 Vaccine (1) [facility] Start: 1993 History and physical examination, annual for health maintenance Wellness Visit [facility] Start: 1991 Varicella vaccine (1 of 2 - 2-dose childhood series) Varicella vaccine (1 of 2 - 2-dose childhood series) [facility] Start: 1990 COVID-19 Vaccine (#1) COVID-19 Vaccine (#1) [facility] Start: 1990 Hepatitis B vaccine (1 of 3 - 3-dose series) Hepatitis B vaccine (1 of 3 - 3-dose series) [facility] Start: 1990 Hepatitis C screening Hepatitis C screen [facility] Start: 1990 Tetanus vaccination Tetanus: Every 10yrs [facility] Anti smooth muscle antibody IgA level Anti-Smooth Muscle Antibody Lab Add-On 06/15/2019 1:50 PM EDT [facility] Antimitochondrial antibody titer Antimitochondrial Antibody Lab Add-On 06/15/2019 1:50 PM EDT [facility] End: 11-20-2019 C.trachomatis N.gonorrhoeae DNA, Urine C.trachomatis N.gonorrhoeae DNA, Urine Microbiology STAT One Time for 1 Occurrences starting 11/20/2019 until 11/20/2019 [place] Comment on above: One Time for 1 Occurrences starting 11/05 until 11/20/2019 C.trachomatis N.gonorrhoeae DNA, Urine C.trachomatis N.gonorrhoeae DNA, Urine Microbiology Stat [employer] Label print 11/20/2019 5:55 PM EDT [place] End: 03-26-2020 Covid-19 Ambulatory Covid-19 Ambulatory Lab Routine Once for 1 Occurrences starting 03/26/2020 until 03/26/2020 [facility] [place] Comment on above: Once for 1 Occurrences starting 03/26/19 21 until 03/26/2020 Covid-19 Ambulatory Covid-19 Amb ulatory Lab Routine 03/26/2020 8:44 PM EST [facility] End: 06-13-2019 Culture, Blood 1 Culture, Blood 1 Microbiology STAT One Time for 1 Occurrences starting 06/13/2019 until 06/13/2019 [place] Comment on above: One Time for 1 Occurrences starting 10/2019 until 06/13/2019 Culture, Blood 1 [place], [place] End: 03-23-2021 Culture, Wound [facility] Work Phone: Comment on above: One Time for 1 Occurrences starting 03/07 until 03/23/2021 Cytomegalovirus DNA assay CMV DN A Detection and Quant, Blood Lab Routine 06/15/2019 1:50 PM EDT [facility] Kirsten-Hazel Virus P CR, Quantitative Kirsten-Hazel Virus PCR, Quantitative Lab Routine 06/15/2019 1:50 PM EDT [facility] End: 04-16-2022 Hemoglobin A1c/Hemoglobin.total in Blood Hemoglobin A1c Lab Routine Encounter for general adult medical examination with abnormal findings 1 Occurrences starting 04/16/2021 until 04/16/2022 [facility] Work Phone: Comment on above: 1 Occurrences starting 04/16/2021 until 04/16/2022 Hemoglobin A1c/Hemoglobin.total in Blood Hemoglobin A1c Lab Routine Encounter for general adult medical examination with abnormal findings 04/16/2021 10:58 AM [facility] End: 04-16-2022 Hepatitis C antibody measurement Hepatitis C Antibody Lab Routine Encounter for general adult medical examination with abnormal findings 1 Occurrences starting 04/16/2021 until 04/16/2022 [facility] Comment on above: 1 Occurrences starting 04/16/2021 until 04/16/2022 Hepatitis C antibody measurement Hepatitis C Antibody Lab Routine Encounter for general adult medical examination with abnormal findings 04/16/2021 10:58 AM [facility] MDI Treatment MDI Treatment Re spiratory Care Routine Every 6hr As Needed until discontinued starting 03/26/2020 [place] Comment on above: Every 6hr As Needed until discontinued s tarting 03/26/2020 Nonrebreather mask oxygen Nonreb reather mask oxygen Respiratory Care Routine As Needed until discontinued starting 10/05/2023 [facility] Comment on above: As Needed until discontinued starting Nuclear Ab IF (S) [Titer] KENIA La b Add-On 06/15/2019 1:50 PM EDT [employer] End: 06-24-2020 Urinalysis, reflex to microscopic Urinalysis, reflex to microscopic Lab STAT One Time for 1 Occurrences starting 06/24/2020 until 06/24/2020 [employer] Work Phone: Comment on above: One Time for 1 Occurrences starting 06/06 until 06/24/2020 End: 05-14-2022 XR Lumbar Spine Complete AP/Lat w Obls XR Lumbar Spine Complete AP/Lat w Obls Imaging Routine Chronic bilateral low back pain without sciatica 1 Occurrences starting 05/14/2021 until 05/14/2022 [employer] Work Phone: Comment on above: 1 Occurrences starting 05/14/2021 until 05/14/2022 Payers Date Payer Category Payer Medicaid [employer] [id number] 2021-Present [phone] [address] [place] [address] [id number]. 7.3.841438.315 2021 Unknown [id number] 1.2.840.783622.1.13.239.2. 7.3.900445.315 2017 Medicaid [id number] 1.2.840.308432.1.13.385.2. 7.3.150731.315 2012 Medicaid [id number] 1.2.840.130290.1.13.239.2. 7.3.824285.315 2012 Medicaid [id number] 2008 Private Health Insurance [id number] 1990 Unknown [id number] 2.16.840.1.800066.3.579.2. 173 1990 Unknown [id number] 2.16.840.1.993169.3.579.2. 900 1990 Unknown [id number] 2.16.840.1.084881.3.579.2. 900 1990 Unknown [id number] 2.16.840.1.777127.3.579.2. 900 1990 Unknown [id number] 2.16.840.1.362047.3.579.2. 900 1990 Unknown [id number] 2.16.840.1.520037.3.579.2. 900 1990 Unknown [id number] 2.16.840.1.415940.3.579.2. 900 1990 Unknown [id number] 2.16.840.1.563564.3.579.2. 900 1990 Unknown [id number] 2.16.840.1.139533.3.579.2. 903 1990 Unknown [id number] 2.16.840.1.361569.3.579.2. 903 1990 Unknown [id number] 2.16.840.1.770044.3.579.2. 903 1990 Unknown [id number] 2.16.840.1.196127.3.579.2. 903 1990 Unknown [id number] 2.16.840.1.806616.3.579.2. 903 1990 Unknown [id number] 2.16.840.1.455385.3.579.2. 903 1990 Unknown [id number] 2.16.840.1.351673.3.579.2. 903 1990 Unknown [id number] 2.16.840.1.614291.3.579.2. 903 1990 Unknown [id number] 2.16.840.1.757351.3.579.2. 903 1990 Unknown [id number] 2.16.840.1.686561.3.579.2. 903 1990 Unknown [id number] 2.16.840.1.666833.3.579.2. 903 1990 Unknown [id number] 2.16.840.1.085914.3.579.2. 903 1990 Unknown [id number] 2.16.840.1.278834.3.579.2. 903 1990 Unknown [id number] 2.16.840.1.590848.3.579.2. 903 1990 Unknown [id number] 2.16.840.1.106581.3.579.2. 903 1990 Unknown [id number] 2.16.840.1.457259.3.579.2. 593 1990 Unknown [id number] 2.16.840.1.557363.3.579.2. 593 1990 Unknown [id number] 2.16.840.1.295946.3.579.2. 593 1990 Unknown [id number] 2.16.840.1.792663.3.579.2. 593 1990 Unknown [id number] 2.16.840.1.609037.3.579.2. 727 1990 Unknown [id number] 2.16.840.1.196897.3.579.2. 727 1990 Unknown [id number] 2.16.840.1.896309.3.579.2. 727 1990 Unknown [id number] 2.16.840.1.946019.3.579.2. 174 1990 Unknown [id number] 2.16.840.1.092343.3.579.2. 174 1990 Unknown [id number] 2.16.840.1.109400.3.579.2. 174 1990 Unknown [id number] 2.16.840.1.071384.3.579.2. 174 1990 Unknown [id number] 2.16.840.1.328027.3.579.2. 174 1990 Unknown [id number] 2.16.840.1.637796.3.579.2. 9 1990 Unknown [id number] 2.16.840.1.628077.3.579.2. 9 1990 Unknown [id number] 2.16.840.1.818422.3.579.2. 9 1990 Unknown [id number] 2.16.840.1.922338.3.579.2. 9 1990 Unknown [id number] 2.16.840.1.020723.3.579.2. 9 1990 Unknown [id number] 2.16.840.1.896030.3.579.2. 9 1990 Unknown [id number] 2.16.840.1.012152.3.579.2. 9 1990 Unknown [id number] 2.16.840.1.901958.3.579.2. 9 1990 Unknown [id number] 2.16.840.1.254556.3.579.2. 175 1990 Unknown [id number] 2.16.840.1.504036.3.579.2. 175 1990 Unknown [id number] 2.16.840.1.584506.3.579.2. 175 1959 Unknown [id number] Social History Date Type Detail Facility Start: 04-28-2019 End: 11-03-2019 Tobacco smoking status MTIS Current every day smoker [place] End: 02-15-2020 History of tobacco use Cigarette Smoker [place] Start: 04-28-2019 End: 10-05-2023 Cigarettes smoked current (pack per day) - Reported [facility]ify Start: 04-28-2019 Alcohol intake Current drinke r of alcohol (finding) [facility] [employer] [facility] Start: 1990 Sex Assigned At Not on file [facility] Start: 06-13-2019 End: 10-05-2023 Alcohol intake Ex-drinker (finding) [facility] [employer] [facility] Y Exposure to SARS-CoV -2 (event) Unable to assess [facility] [employer] [facility] Start: 05-18-2019 End: 04-16-2021 History SDOH Alcohol Frequency 3 [facility] Start: 05-18-2019 End: 07-16-2020 History SDOH Alcohol Std Drinks 5 [facility] Start: 05-04-2021 End: 05-19-2022 Exposure to SARS-CoV-2 (event) Not sure [facility] Start: 11-20-2019 End: 07-26-2023 Tobacco use and exposure [facility] Start: 06-09-2020 End: 07-26-2023 Tobacco smoking status NHIS Former smoker [facility] End: 02-15-2020 History of tobacco use Current smoker [facility] Start: 12-09-2019 [facility] Start: 04-16-2021 History SDOH Social Connections Get Together 4 [facility] Start: 04-16-2021 History SDOH Food Worry 1 [facility] Start: 09-04-2022 End: 10-05-2023 [facility] At [facility] Start: 09-04-2022 History SDOH Alcohol Frequency 2 [employer] How often to you hav e a drink containing alcohol? Monthly or less [employer] Average Number of Drinks Not on file [employer] How often to you hav e a drink containing alcohol? Never [employer] Medical Equipment Procedure Code Equipment Code Equipment Origin al Text Equipment Identifier Dates Use to check BG QID Dx O24.14 . [id number] Start: 06-09-2020 Use as instructe d to check BG QID Dx O24.14 . [id number] Start: 06-09-2020 End: 06-11-2020 use to test BLOO D SUGAR FOUR TIMES DAILY [id number] Start: 06-09-2020 Goals Date Patient Goal Desired Activity /State Functional Status Date Assessment Result Facility 05-13-2023 Functional Status N/A [facility] 05-11-2023 Functional Status N/A [facility] 06-29-2022 Functional Status N/A [facility] Clinical Notes 06-09-2020 to 05-13-2023 Note Date [...] Follow these instructions at home: Medicines Take guaz-zko-ajhoxqx and prescription medicines only as told by [...] provider. Document Revised: 04/30/2021 Document Reviewed: 04/30/2021 [employer] Patient Education 2022 [employer]. Follow Up Care 05/13/2023 11:20:07 With:[email or web address] [facility] Address: [address] [place], [place] [id number] [facility] (1) When:05/16/2023 12:45:32 Comments:Dentistry follow-up [facility] 05-12-2023 Hospital Discharg e instructions Patient Education 05/11/2023 23:33:09 Dental Pain, Ryjx-zu-Uhct Dental Pain Dental pain is often a [...] Follow these instructions at home: Medicines Take oiax-koh-oeugugd and prescription medicines only as told by [...] damage to the area. Brushing your teeth [place] your teeth twice a day using a [...] only when you eat or drink. Take ebza-xhz-zlbtlmg and prescription medicines only as told by your dentist. Watch your dental pain for any changes. Let your dentist know if symptoms get worse. This information is not intended to replace advice given to you by your health care provider. Make sure you discuss any questions you have with your health care provider. Document Revised: 11/26/2020 Document Reviewed: 11/26/2020 [employer] Patient Education 2022 [employer]. Follow Up Care 05/11/2023 21:26:40 With:Linda Sheppard DO Address: [address] [place] [address], [address] [address] When:05/14/2023 [facility] 05-11-2023 Evaluation + Plan note Extrac roxann from: Title:ED Note Author:Violet Walters PA-C ate:05/11/23 1. Pain, dental (K08.89: Oth er specified disorders of teeth and supporting structures) Ordered: amoxicillin-clavulanate, = 1 tab(s), Oral, q12hr, X 7 day(s), # 14 tab(s), Refills(s) 0, Pharmacy: [facility], 160, cm, 05/11/23 21:53:00 EST, Height/Length Dosing, 110, kg, 05/11/23 21:53:00 EST, Weight Dosing chlorhexidine topical, 0.018 gm, 15 mL, Oral, BID, 480 mL, Refill(s) 0, (swish and spit; do not swallow), [facility], 160, cm, 05/11/23 21:53:00 EST, Height/Length Dosing, 110, kg, 05/11/23 21:53:00 EST, Weight Dosing 2. Infected dental caries (K02.9: Dental caries, unspecified) Ordered: amoxicillin-clavulanate, = 1 tab(s), Oral, q12hr, X 7 day(s), # 14 tab(s), Refills(s) 0, Pharmacy: [facility], 160, cm, 05/11/23 21:53:00 EST, Height/Length Dosing, 110, kg, 05/11/23 21:53:00 EST, Weight Dosing chlorhexidine topical, 0.018 gm, 15 mL, Oral, BID, 480 mL, Refill(s) 0, (swish and spit; do not swallow), [facility], 160, cm, 05/11/23 21:53:00 EST, Height/Length Dosing, 110, kg, 05/11/23 21:53:00 EST, Weight Dosing 3. First trimester (Z34.91: Encounter for supervision of normal , unspecified, first trimester) Periapical abscess without sinus (K04.7: Periapical abscess without sinus) Orders: ketorolac, 30 mg = 1 mL, Injection, IntraMuscular, Once, Stop date 05/11/23 23:31:00 EST, STAT, Start date 05/11/23 23:31:00 EST, 05/11/23 23:31:00 EST [facility]03-05-2024 Hospital Discharge instructions* Discharge Instructions* Chet Berumen DO - 05/10/2023 11:50 AM EST Use amoxicillin as prescribed. Use Tylenol as needed for pain. Follow-up with dentist as soon as possible. * Attachments The following attachments cannot be sent through Care Everywhere. * Tooth Decay (Omani) * Tooth and Gum Pain (Omani) documented [facility] History of Present illness Narrative* Angelito Harvey [...] Supplements: Reviewed Current Outpatient Medications Ordered in [facility] Medication Sig Dispense Refill baclofen (LIORESAL) [...] mg by mouth daily . No current [facility]-ordered facility-administered medications on file. Lab Results [...] 10 AM- eggs (over easy or scrambled), rascno, toast, and hash browns Lunch - 1-2 PM- sandwich (deli meat or grilled cheese); salads with peppers, cucumbers, cheese, andFrench dressing; spaghetti o's or canned soup; spicy breaded chicken sandwich (at home) Dinner - 6-7 PM- crock pot meals- goulash; Hungarian chicken; spicy rice with chicken and beans; [...] calorie goals/day. Estimated Nutritional Needs: Calorie Needs: 7626-3462 kcals/day (MSJ x 1.3AF -500-1000 to promote gradual weight loss) Patient/Family Education: Learner: family and patient Readiness: action - ready to set action plan and implement goals Barriers to Learning: none Method: explanation and handout Response: verbalizes understanding Expected Adherence: good Education Materials Provided: Healthy Meal Planning handout ([facility]), Goal Sheet, 1,024-Byermbx0-Wvq Menus (NCM), 1,800-Calorie 5-Day Menus (NCM), Weight Loss Tips (NCM) Monitoring/Evaluation: Lab results, weight, food recall, meal planning, goal achievement, physical activity, medication management. This documentation has been sent to the referring healthcare provider. Angelito Harvey RDN, ZAHRA Personal Office documented in this [id number] History of Present illness Narrative* Farhat Vang [...] C hepatitis virus. 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 She has 4 children at home [...] Not difficult at all documented in this [id number] History of Present illness Narrative* Holland Ann [...] Procedure: SECTION; Surgeon: Roslyn Stevenson MD; Location: [facility]; Service: OBGYN SECTION, LOW TRANSVERSE 3 [...] Friends and Family: Not on file Attends [employer] Services: Not on file Active Member of [...] Report 12/29/2020 Final Value:Gynecologic Cytology Report Case: [id number] Authorizing Provider: Germania Valentino, Collected: 12/29/2020 11:09 AM CIGARETTE AND FILTER CHIEF INSPECTOR Ordering Location: [facility] OILSEED MEAT PRESSER - An Received: 12/30/2020 12:03 PM [facility] First Screen: Violet Craig Rescreen: Talya [...] on ThinPrep tests. Following automated imaging selected nwe from every slide are reviewed by a completion manager. Specimen processing and Primary Screening performed at: [facility] - [address] [place] [id number] HPV Results 12/29/2020 Final Value:This result contains [...] physician. Holland Ann MD documented in this [id number] History of Present illness Narrative* Jeimy Tan LPN - 01/15/2021 11:17 AM EST This nurse acted as a direct service professional for a rectal exam by Dr. Ann for Tia. Tia verbalized consent to be examined, appeared comfortable and tolerated the exam well. documented in this [id number] History of Present illness Narrative* Neris Ulloa, [...] no 2) I will try yoga on [facility] - yes but didn't feel comfortable doing [...] oatmeal packet. Snack celery + PB or South Sudanese yogurt or green peppers. Lunch - will be light if full from snack and may have an early dinner. Dinner - pork chops, steamed vegetables. Snack - [place] yogurt or vegetables or watermelon. Beverages - [...] prescription for Current Outpatient Medications Ordered in [facility] Medication Sig Dispense Refill blood sugar [...] BLOOD SUGAR FOUR TIMES DAILY No current [facility]-ordered facility-administered medications on file. SMBG Results: [...] the referring healthcare provider. documented in this [id number] Instructions* Patient Instructions* Zelda Bautista CNP - [...] to renew/prescribe testing supplies. documented in this [id number] History of Present illness Narrative* Zelda Bautista [...] visit with us. The patient did bring Categoricalod sugar meter with her for download today however there is not many readings on it. She states she started a new job at [employer] and does noise get breaks to check [...] 4. Patient to cont. To follow with utility arborist 5. Patient will require 2 hour 75 gram OGTT 8-12 weeks after delivery. 6. Follow-up in 2 weeks. Risks and potential complications of diabetes were reviewed with the patient. Electronically signed by Zelda MARIN 07/09/2110:03 AM documented in this [id number] History of Present illness Narrative* Lelo Gallegos [...] month during . While awaiting appointment with utility arborist, patient provided with details of GDM diet, [...] 1 hour post prandial. 4. Referral to utility arborist 5. Patient will require 2 hour 75 gram OGTT 8-12 weeks after delivery. 6. Follow-up in 2 weeks. Risks and potential complications of diabetes were reviewed with the patient. documented in [facility]Health[facility] + [facility] note No data available for this section [facility]* Diagnosis Diet controlled gestational diabetes mellitus (GDM) in second trimester [facility] Diagnosis Acute frontal sinusitis, recurrence not specified- Primary documented in this encounter [employer] Phone: evaluation note* Diagnosis Diet controlled gestational diabetes mellitus (GDM) in third trimester- Primary [facility] Diagnosis Diet controlled gestational diabetes mellitus (GDM) in third trimester [facility] Diagnosis Viral URI- Primary Acute upper respiratory infections of unspecified site documented in this encounter [employer] Phone: evalhplkhl note* Diagnosis Strain of rhomboid muscle, initial encounter Chest wall muscle strain, initial encounter documented in this encounter [employer] Phone: evaluaehcg note* Diagnosis Viral syndrome- Primary Unspecified viral infection, in conditions classified elsewhere and of unspecified site documented in this encounter [employer] Phone: evaluation note* Diagnosis Hemorrhoids, unspecified hemorrhoid type [facility] Diagnosis COVID-19- Primary Omphalitis in adult Unspecified local infection of skin and subcutaneous tissue documented in this encounter [employer] Phone: evaluation note* Diagnosis Encounter for general adult medical examination with abnormal findings- Primary Anxiety and depression History of opioid abuse (HCC) Morbid obesity with body mass index (BMI) of 40.0 or higher (HCC) [facility]* Diagnosis Anxiety and depression- Primary At risk for obstructive sleep apnea Chronic bilateral low back pain without sciatica Hepatitis C antibody positive in blood Body mass index 40.0-44.9, adult (HCC) Body Mass Index 40.0-44.9, adult History of opioid abuse (HCC) [facility]* Diagnosis Morbid obesity with body mass index (BMI) of 40.0 or higher (HCC) [facility]* Diagnosis Acute pharyngitis, unspecified etiology- Primary documented in this encounter [employer] Phone: evaluation note* Diagnosis Acute bronchitis, unspecified organism- Primary documented in this encounter [employer] Phone: evalyswfkn note* Diagnosis Masseter muscle spasm- Primary Spasm of muscle Other acute postprocedural pain documented in this encounter [employer] Phone: evaluation note* Diagnosis Dry socket- Primary Alveolitis of jaw [facility]* Diagnosis Sprain of right ankle, unspecified ligament, initial encounter- Primary documented in [facility]* Diagnosis Toothache- Primary Unspecified disorder of the teeth and supporting structures Dental decay Unspecified dental caries documented in this encounter [facility]* Diagnosis 26 weeks gestation of - Primary state, incidental [facility] instructions* Instructions* Anuj Quinn MD - 06/24/2020 Although many eayo-iik-uzryday cough cold flu sinus medications are safe in , I would contact her OILSEED MEAT PRESSER office in [facility] to verify what your OILSEED MEAT PRESSER group feels a safe in . Tylenol [...] be sent through Care Everywhere. * Sinusitis (Omani) [facility]: Hospital Discharge instructions* Attachments The following attachments cannot be sent through Care Everywhere. * URI (Upper Respiratory Infection) (Omani) documented in this [facility] Phone: Hospital Discharge instructions* Attachments The following attachments cannot be sent through Care Everywhere. * Muscle Strain (Omani) documented in this [facility] Phone: Hospital Discharge instructions* Attachments The following attachments cannot be sent through Care Everywhere. * Viral Infections (Omani) documented [facility] this [facility] Phone: Hospital Discharge instructions* Attachments The following attachments cannot be sent through Care Everywhere. * Coronavirus Disease (COVID-19): General Info (Omani) * Coronavirus Disease (COVID-19): Isolation (Omani) * Piercing: Infection (Omani) documented [facility] this [facility] Phone: spital Discharge instructions* Instructions* Clark Moser MD - 07/22/2021 Use Tylenol or Motrin for pain. Take amoxicillin twice a day. Amoxicillin treats strep throat, ear infections, bronchitis and pneumonia. Call primary care doctor for close follow-up. * Attachments The following attachments cannot be sent through Care Everywhere. * Sore Throat (Omani) documented in this [facility] Phone: spital Discharge instructions* Attachments The following attachments cannot be sent through Care Everywhere. * Bronchitis (Omani) documented in this [facility] [employer] Phone: [employer] [facility] Discharge instructions* Attachments The following attachments cannot be sent through Care Everywhere. * Cramp: Muscle (Omani) * Pain Post-Surgery: Acute (Omani) documented in this [facility] Phone: [employer] Discharge instructions* Attachments The following attachments cannot be sent through Care Everywhere. * Roosevelt Tooth Extraction: Post-op (Omani) documented in this [facility] [employer] Phone: [employer] Discharge instructions No data available for this section [facility] Discharge instructions* Attachments The following attachments cannot be sent through Care Everywhere. * Ankle Sprain (Omani) documented [facility]* Attachments The following attachments cannot be sent through Care Everywhere. * : Weeks 26 to 30 (Omani) * : When to Call (After 20 Weeks): General Info (Omani) * : Twins: General Info (Omani) documented in this [facility] note No data available for this section [facility] for referral (narrative)* Consultation (Routine) Status Reason Specialty Diagnoses / Procedures Referred By Contact Referred To Contact Authorized Nutrition Diagnoses Diet controlled gestational diabetes mellitus (GDM) in second trimester Lelo Gallegos MD [address] [place] [id number] [facility] [address] [place] [address] [facility] for visit Narrative* Consultation (Routine) - Pending Review Specialty Diagnoses / Procedures Referred By Contac t Referred To Contact Gastroenterology Diagnoses Hemorrhoids, unspecified hemorrhoid type Germania Galaviz, CIGARETTE AND FILTER CHIEF INSPECTOR [address] [place] [address] Holland Ann MD [address] [place] [address] Referral ID Status Reason Start Date Expiration Date V isits Requested Visits Authorized [id number] Pending Review 12/29/2020 01/14/2022 1 1 [facility] Assessments Diagnosis Accidental overdose of [...] FoundDocuments on File Type Date Recorded Patient Correctional Manager Expl anation Advance Directives and Living Will Power of Heel Finisher Documents on File Type Date Recorded Patient Correctional Manager Expl anation Advance Directives and Living Will 06/14/2019 7:25 AM does not have 3/13/2 0 Latest Code Status on File Code Status Date Activated Date Inactivated Comments Full Code 06/15/2019 9:29 AM 06/17/2019 4:38 PM Full Code - Unverified 06/14/2019 8:35 AM 06/15/2019 9:29 AM Documents on File Type Date Recorded Patient Correctional Manager Expl anation Advance Directives and Living Will 06/14/2019 7:25 AM does not have 3/13/2 0 Latest Code Status on File Code Status Date Activated Date Inactivated Comments Full Code 06/15/2019 9:29 AM 06/17/2019 4:38 PM Full Code - Unverified 06/14/2019 8:35 AM 06/15/2019 9:29 AM Documents on File Type Date Recorded Patient Correctional Manager Expl anation Advance Directives and Living Will 06/20/2019 1:10 PM does not have 3/13/2 0 Documents on File Type Date Recorded Patient Correctional Manager Expl anation ACP-Advance Directive ACP-Power of Heel Finisher Documents on File Type Date Recorded Patient Correctional Manager Expl anation Advance Directives and Living Will 06/20/2019 1:10 PM does not have 3/13/2 0 Documents on File Type Date Recorded Patient Correctional Manager Expl anation Advance Directives and Living Will 08/28/2020 5:58 AM does not have 3/13/2 0 Latest Code Status on File Code Status Date Activated Date Inactivated Comments Full Code 08/28/2020 11:15 AM 08/30/2020 11:53 AM Full Code 08/28/2020 5:31 AM 08/28/2020 11:07 AM Full Code 06/15/2019 9:29 AM 06/17/2019 4:38 PM Documents on File Type Date Recorded Patient Correctional Manager Expl anation Advance Directives and Living Will 08/28/2020 5:58 AM does not have 3/13/2 0 Latest Code Status on File Code Status Date Activated Date Inactivated Comments Full Code 08/28/2020 11:15 AM 08/30/2020 11:53 AM Full Code 08/28/2020 5:31 AM 08/28/2020 11:07 AM Full Code 06/15/2019 9:29 AM 06/17/2019 4:38 PM Documents on File Type Date Recorded Patient Correctional Manager Expl anation Advance Directives and Livin g Will 05/15/2021 12:00 AM Latest Code Status on File Code Status Date Activated Date Inactivated Comments Full Code 10/05/2023 9:02 PM Hospital Course * Savita Stiles PA-C - 06/17/2019 10:12 AM EDT [facility] DISCHARGE SUMMARY Tia Levin Account: [id number] Admitted: 06/14/2019 Discharge Date/Time: 06/17/19 / 10:12 [...] amphetamine and heroine use who presented to [facility] 06/14/19 with complaints of abdominal pain and nausea. [facility] AST 1116 ALT 665 Alk phos 255 T bili 6.5 Lipase 8. CTAP revealed pericholecystic fluid vs GB wall thickening, no gallstones or hepatic pathology noted. Patient transferred to [facility] 06/14/2019 for further treatment and evaluation. GI followedwith recommendations as discussed. Patient was stable for discharge home on 06/17/19. 1. Acute Liver Injury: [facility] AST 1116 ALT 665 Alk [...] chart for all vitals, diagnostic data, and unix consultant notes. I discussed patient's case with Dr. Gregorio, Dr. Hay (GI) and RN. Discharge Medications Medication List ASK your doctor about these medications naltrexone microspheres Commonly known as: VivitroL Inject 380 (three hundred eighty) mg into the shoulder, thigh, or buttocks every 30 (thirty) days . Physician(s) Family: Physician No, Phone: None, Address: [facility] Up: Javier Hay MD [address] [facility] [address] Follow up Repeat weekly CBC, CMP and PT/INR for the next 3-4 weeks then follow up out patient with Dr. Hay. Laboratory Follow Up by [facility]: Weekly labs for CBC, CMP, PT/INR Additional Information: Patient seen and examined day of discharge. For more information regarding patient's care, including complete radiology reports, please contact [facility] at Patient instructions, including activity, were given to the patient/family at discharge. Please seethe After Visit Summary in the medical record for details. Completed by: Savita Stiles on 06/17/19, 10:12 AM Associated attestation - Thad Augutse MD - 06/17/2019 11:24 AM EDT Patient seen and examined independently. Personally reviewed labs, imaging. Discussed case with Savita Stiles PA-C. Agree with plan as below. Tia Levin is a 29 y.o. female with a history of amphetamine and heroine use who presented to [facility] 06/14/19 with complaints of abdominal pain and nausea. [facility] AST 1116 ALT 665 Alk phos 255 T bili 6.5 Lipase 8. CTAP revealed pericholecystic fluid vs GB wall thickening, no gallstones or hepatic pathology noted. Patient transferred to [facility] 06/14/2019 for further treatment and evaluation. [...] 1:16 PM EDT RESOURCES FOR PRIMARY CARE [facility] Closed Opens tomorrow [address], [place] [address] [facility] [address] [address] [place] [address] DIRECTIONS WEBSITE [facility] Closed Opens tomorrow 11 AM [address], [place] [address] documented in this encounter* Instructions* Adia Dillon, [...] Opioid Use Disorder: Medication-Assisted Treatment: General Info (Omani) documented in this encounter* Attachments The following attachments cannot be sent through Care Everywhere. * Bacterial Vaginosis (Omani) * Trichomoniasis (Omani) documented in this encounter* Attachments The following attachments cannot be sent through Care Everywhere. * Dental Surgery: Generic: Post-op (Omani) documented in this encounter* Attachments The following attachments cannot be sent through Care Everywhere. * Bronchitis (Omani) * Pneumonia (Omani) documented in this encounter* Attachments The following attachments cannot be sent through Care Everywhere. * Poison [place] - [place] - and [place] ([place]i) documented in this encounter History of Present Illness * Javier Hay MD - 06/17/2019 9:59 AM EDT GASTROENTEROLOGY DAILY PROGRESS NOTE 1 Patient Name: Tia Levin MR #: [id number] Assessment/Plan: Elevated LFTs Assessment & Plan 29yo F with PMHx IVDU and hepatitis C who presents from [facility] with elevated LFTs and imaging [...] Inpatient Progress Note 06/17/2019 Tia Levin 1990 [id number] Assessment/Plan: Tia Khushi Levin is a 29 y.o. female with a history of amphetamine and heroine use who presented to [facility] 06/14/19 with complaints of abdominal pain and nausea. [facility] AST 1116 ALT 665 Alk phos 255 T bili 6.5 Lipase 8. CTAP revealed pericholecystic fluid vs GB wall thickening, no gallstones or hepatic pathology noted. Patient transferred to [facility] 06/14/2019 for further treatment and evaluation. [...] labs, diagnostics, vitals including pulse ox, and unix consultant/other provider recommendations. No acute issues overnight [...] 2 Patient Name: Tia Levin MR #: [id number] Assessment/Plan: Elevated LFTs Assessment & Plan 29yo [...] Inpatient Progress Note 06/16/2019 Tia Levin 1990 [id number] Assessment/Plan: Tia Levin is a 29 y.o. female with a history of amphetamine and heroine use who presented to [facility] 06/14/19 with complaints of abdominal pain and nausea. [facility] AST 1116 ALT 665 Alk phos 255 T bili 6.5 Lipase 8. CTAP revealed pericholecystic fluid vs GB wall thickening, no gallstones or hepatic pathology noted. Patient transferred to [facility] 06/14/2019 for further treatment and evaluation. [...] recent labs, diagnostics, vitals including pulseox, and unix consultant/other provider recommendations. No acute issues overnight [...] 2 Patient Name: Tia Levin MR #: [id number] Assessment/Plan: Elevated LFTs Assessment & Plan 29yo F with PMHx IVDU and hepatitis C who presents from [facility] with elevated LFTs and imaging c/f possible acute cholecystitis. GI consulted for further evaluation. - LFTs: AP 255, AST/ALT 665/1116, TB 6.5 (normal 02/2019) - CT w IVC ([facility]): moderate GBW thickening w pericholecystic fluid and periportal edema; no cholelithiasis; nl CBD - RUQ U/S: contracted GB; no cholelithiasis; nonspecific GBW thickening w +Shotr's sign, cannot exclude acalculus cholecystitis; nl CBD [...] Pruitt MD - 06/15/2019 10:43 AM EDT [facility] 06/15/2019 Tia Levin 1990 [id number] Assessment/Plan: Tia Levin is a 29 y.o. female with a history of amphetamine and heroine use who presented to [facility] 06/14/19 with complaints of abdominal pain and nausea. [facility] AST 1116 ALT 665 Alk phos 255 T bili 6.5 Lipase 8. CTAP revealed pericholecystic fluid vs GB wall thickening, no gallstones or hepatic pathology noted. Patient transferred to [facility] 06/14/2019 for further treatment and evaluation. 1. Acute Liver Injury: [facility] AST 1116 ALT 665 Alk [...] not have a PCP and refused a geriatric case manager consult for assistance. Verified insurance [...] spoke with patient about going to any [facility] to have her lab taken [...] daily (lemon water) Occasional iced coffee at [employer]. Was drinking a lot of Mountain Dew and Energy drinks prior to but stopped. Meals Away From Home - most days, fast food Past Medical History: Past Medical History: Diagnosis Date Anxiety Depression Infectious viral hepatitis hep c PTSD (Post-Traumatic Stress Disorder) History From: History obtained from patient and chart review. Current/Pertinent Medications: prescription for Current Outpatient Medications Ordered in [facility] Medication Sig Dispense Refill amoxicillin (AMOXIL) [...] [facility] - [place]) Farhat Vang MD [id number] Referral ID Status Reason Start Date Expiration Date Visits Requested Visits Authorized [id number] Authorized Specialty Services Required/Pat ient's Best Interest 04/16/2021 04/16/2022 1 1 Specialty Diagnoses / Procedures Referred By Contac t Referred To Contact Neurosurgery Diagnoses Chronic bilateral low back pain without sciatica Farhat Vang MD [address] [phone] Carina Kline MD [address] [place] [address] Referral ID Status Reason Start Date Expiration Date Visits Requested Visits Authorized [id number] Authorized Specialty Services Required/Pat ient's Best Interest 05/14/2021 05/14/2022 1 1 Specialty Diagnoses / Procedures Referred By Contac t Referred To Contact Rehabilitation Diagnoses Chronic bilateral low back pain without sciatica Farhat Vang MD [address] [address] Referral ID Status Reason Start Date Expiration Date Visits Requested Visits Authorized [id number] Authorized Specialty Services Required/Pat ient's Best Interest 05/14/2021 05/14/2022 1 1 Specialty Diagnoses / Procedures Referred By Contac t Referred To Contact Diagnoses At risk for obstructive sleep apnea Farhat Vang MD [address] [address] Gabriel Jacinto MD [address] [place] [address] Referral ID Status Reason Start Date Expiration Date Visits Requested Visits Authorized [id number] Authorized Specialty Services Required/Pat jvnt's Best Interest [...] in second trimester Lelo Gallegos MD [address] [place] [address] Nutrition Services [address] [place] [address] Reason Comments Gestational Diabetes Status Reason Specialty Diagnoses / Procedures Referred By Contact Referred To Contact Closed Endocrinology Diagnoses Diet controlled gestational diabetes mellitus (GDM) in second trimester Roslyn Stevenson MD [address] [place] [phone] Lelo Gallegos MD [address] [place] [address] Reason Comments Pharyngitis sore throat and head [...] - [place]) Farhat Vang MD [address] [facility] [address] [place] [address] [place] [phone] Referral ID Status Reason Start Date Expiration Date Visits Requested Visits Authorized [id number] Authorized Specialty Services Required/Pat jvnt's Best Interest [...] and Physical Note 06/14/19 Tia Levin 1990 [id number] Assessment/Plan: Tia Levin is a 29 y.o. female with a history of amphetamine and heroine use who presented to [facility] 06/14/19 with complaints of abdominal pain and nausea. [facility] AST 1116 ALT 665 Alk phos 255 T bili 6.5 Lipase 8. CTAP revealed pericholecystic fluid vs GB wall thickening, no gallstones or hepatic pathology noted. Patient transferred to [facility] 06/14/2019 for further treatment and evaluation. 1. Elevated LFTs: [facility] AST 1116 ALT 665 Alk phos 255 T bili 6.5 (normal 02/2019). [facility] CTAP as noted above. RUQ [...] amphetamine and heroine use who presented to [facility] 06/14/19 with complaints of abdominal pain and nausea. OL AST 1116 ALT 665 Alk phos 255 T bili 6.5 Lipase 8. CTAP revealed pericholecystic fluid vs GB wall thickening, no gallstones or hepatic pathology noted. Patient transferred to [facility] 06/14/2019 for further treatment and evaluation. [...] labs, diagnostics, vitals including pulse ox, and unix consultant/other provider recommendations. Discussed with collaborating physician [...] file Gets together: Not on file Attends buddhism service: Not on file Active member of [...] reviewed, including documentation from previous hospitalizations and unix consultant recommendations as summarized below. Briefly, patient [...] Name: Tia Levin Admit Date: MR #: [id number] : 1990 Senior addendum 29 y/o F [...] Hepatitis C, and hx of presents to [facility] with jaundice and abdominal pain. -RUQ [...] Fleming MD General Surgery, PGY 2 Pager# [phone] 06/16/2019, 10:43 AM After 5 PM and on Weekends, please page [phone] (Surgery Vehicle Upholsterer director of acquisition marketing) History of Present Illness: Patient presented for [...] file Gets together: Not on file Attends buddhism service: Not on file Active member of [...] patient. I discussed the case with the resident/CAMPUS SUPERVISOR and agree with the findings and plan as documented in his/her note and/or any note I supplied. Associated Order(s): IP CONSULT TO GASTROENTEROLOGY GASTROENTEROLOGY CONSULT NOTE 4 Patient Name: Tia Levin Admit Date: MR #: [id number] : 1990 Physicians: Physician Judy (Family); Brie Moreno MD (Referring) Consult Ordered By: Franny Sims PA-C Assessment and Plan: Other Elevated LFTs Assessment & Plan 29yo F with PMHx IVDU and hepatitis C who presents from [facility] with elevated LFTs and imaging c/f possible acute cholecystitis. GI consulted for further evaluation. - LFTs: AP 255, AST/ALT 665/1116, TB 6.5 (normal 02/2019) - CT w IVC ([facility]): moderate GBW thickening w pericholecystic fluid and periportal edema; no cholelithiasis; nl CBD - RUQ U/S: contracted GB; no cholelithiasis; nonspecific GBW thickening w +Sohrt's sign, cannot exclude acalculus cholecystitis; nl CBD [...] IVDU and hepatitis C who presents from [facility] with elevated LFTs and imaging [...] file Gets together: Not on file Attends buddhism service: Not on file Active member of [...] reviewed, including documentation from previous hospitalizations and unix consultant recommendations as summarized below. Briefly, patient [...] secti on and content) ED PROVIDER NOTE [facility] EMERGENCY DEPARTMENT NAME: Tia Levin AGE: 29 y.o. : 1990 VISIT DATE: 08/13/2019 CSN: [id number] PCP: Physician No Chief Complaint Patient presents with Drug Overdose This is a 29-year-old female brought to the ER via EMS for evaluation. Time my exam patient is alert and oriented. She states she was in the [employer] parking lot bent over in her car [...] file Gets together: Not on file Attends buddhism service: Not on file Active member of [...] nursing note reviewed. Exam conducted with a direct service professional present (Nurses at the bedside). Constitutional: General: [...] people with drug addiction. [address] [facility] [address] Contact information for after-discharge care Follow-up information has not been specified. Adia Dillon CNP 08/13/191948 Pt brought in by [facility], states she was found by [facility] unresponsive [...] section and content) DATE CREATED AUTHOR 08/21/2019 [facility] DATE CREATED AUTHOR AUTHOR'S ORGANIZ ATION 02/15/2021 [facility] DATE CREATED AUTHOR AUTHOR'S ORGANIZ ATION 05/18/2021 [facility] DATE CREATED AUTHOR AUTHOR'S ORGANIZ ATION 07/02/2021 [facility] DATE CREATED AUTHOR AUTHOR'S ORGANIZ ATION 07/09/2021 [facility] DATE CREATED AUTHOR AUTHOR'S ORGANIZ ATION 07/05/2022 [facility] DATE CREATED AUTHOR AUTHOR'S ORGANIZ ATION 05/14/2023 [facility] DATE CREATED AUTHOR AUTHOR'S ORGANIZ ATION 10/07/2023 [facility] DATE CREATED AUTHOR AUTHOR'S ORGANIZ ATION 11/25/2023 [facility] EPIC DATE CREATED AUTHOR AUTHOR'S ORGANIZ ATION 11/26/2023 [facility] Ordered Prescriptions (unrec ognized section and [...]
Care Teams (unrecognized sec tion and content) Garden Machinery Mechanic Relationship Specialty Start Date End Date No, Physician [facility] PCP - General 12/29/20 Germania Galaviz, CIGARETTE AND FILTER CHIEF INSPECTOR [address] [place] [id number] Nurse Practitioner Obstetrics/Gynecology 11/01/19 Garden Machinery Mechanic Relationship Specialty Start Date End Date No, Physician [facility] PCP - General 12/29/20 Germania Galaviz, CIGARETTE AND FILTER CHIEF INSPECTOR [address] [place] [address] Nurse Practitioner Obstetrics/Gynecology 11/01/19 Garden Machinery Mechanic Relationship Specialty Start Date End Date Farhat Vang MD [address] [address] PCP - General Family Medicine 04/16/21 Germania Galaviz, CIGARETTE AND FILTER CHIEF INSPECTOR [address] [place] [address] Nurse Practitioner Obstetrics/Gynecology 11/01/19 Radha Pantoja MD [address] [place] [address] Pump And Blower Operator Obstetrics/Gynecology 02/02/21 Yvonne Santos MD [address] [place] [address] Pump And Blower Operator Obstetrics/Gynecology 02/02/21 Regla Dias, IRAIDA [address] [place] [address] Division Service Manager Obstetrics/Gynecology 02/02/21 Garden Machinery Mechanic Relationship Specialty Start Date End Date Farhat Vang MD [address] [facility] [address] [place] [address] PCP - General Family Medicine 04/16/21 Germania Galaviz, CIGARETTE AND FILTER CHIEF INSPECTOR [address] [place] [address] Nurse Practitioner Obstetrics/Gynecology 11/01/19 Radha Pantoja MD [address] [place] [address] Pump And Blower Operator Obstetrics/Gynecology 02/02/21 Yvonne Santos MD [address] [place] [address] Pump And Blower Operator Obstetrics/Gynecology 02/02/21 LarissaRegla alcazar, [facility] [address] [facility] [address] [place] [address] Division Service Manager Obstetrics/Gynecology 02/02/21 Garden Machinery Mechanic Relationship Specialty Start Date End Date Farhat Vang MD [address] [facility] [address] [place] [address] PCP - General Family Medicine 04/16/21 Germania Galaviz, [facility] [address] [place] [address] Nurse Practitioner Obstetrics/Gynecology 11/01/19 Radha Pantoja MD [address] [place] [address] Pump And Blower Operator Obstetrics/Gynecology 02/02/21 Yvonne Santos MD [address] [facility] [address] [place] [address] Pump And Blower Operator Obstetrics/Gynecology 02/02/21 Larissa, Reglasoren Arriaga, [facility] [address] [place] [address] Division Service Manager Obstetrics/Gynecology 02/02/21 Garden Machinery Mechanic Relationship Specialty Start Date End Date Linda Sheppard DO [address] [facility] [place] [address] PCP - General Family Medicine 09/04/22 Garden Machinery Mechanic Relationship Specialty Start Date End Date Linda Sheppard DO [address] [facility] [place] [address] PCP - General Family Medicine 09/04/22 Garden Machinery Mechanic Relationship Specialty Start Date End Date Linda Sheppard DO [address] [place] [address] PCP - General Family Medicine 09/04/22 FOR [...] BE BASED ON THE PRIMARY CLINICAL RECORDS. [facility]. provides no warranty or guarantee of the accuracy or completeness of information in this document.
[2023-12-06 09:44] VITALS: BP 109/62; PULSE 96
== END 2023-12-06 10:05 | disposition home or self-care (01) ==
LOC: US 07:02 → FBC 09:07
PROVIDERS: Visit Provider Obstetrics & Gynecology
DX: O30.033 Twin pregnancy, monochorionic/diamniotic, third trimester (principal); Z3A.35 35 weeks gestation of pregnancy
CPT/HCPCS: 76818

== ENCOUNTER 2023-12-07 20:07 | Outpatient (REF) | payer BC, SELFPAY ==
--- OUTSIDE RECORDS SUMMARY | 2023-12-07 20:11 | XMS_ITS | CCD ---
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 Name Role Phone Unavailable Primary Care Provider Unavailabl e No, Physician Primary Care Provider Unavailabl e HODA MADERA Unavailable Unavailable Primary Care Provider Unavailabl e No, Physician Primary Care Provider Unavailabl Germania Becerra Unavailable Roslyn Stevenson Unavailable [phone] Radha Pantoja Unavailable Yvonne Santos Unavailable Larissa, Regla Corina Unavailable No, Physician Primary Care Provider UnavailGermania Rodriguez CNP Unavailable [phone] Roslyn Stevenson MD Unavailable Radha Pantoja MD [...] day(s), # 14 tab(s), Refills(s) 0, Pharmacy: [facility], 160, cm, 05/11/23 21:53:00 EST, Height/Length [...] oral solution (2 sources) alpha-Adrenergic Agonist, Uncompetitive E-nridxy-E-aspartate Receptor Antagonist, Sigma-1 Agonist Start: End: take 5 mL by mouth four times daily as needed for cough brompheniramine-pse udoephedrine-DM (BROMFED DM) 2-30-10 MG/5ML syrup Take 5 mLs by mouth 4 times daily as needed for Congestion or Cough 240 mL 1 10/12/2021 11/11/2021 Active Start: 11-07-2020 End: 11-12-2020 take 5 mL by mouth three times daily as needed for cough vrrelmjrloinfto-isbzcvdrvfkwmck-AX 2-30- 10 MG/5ML syrup Take 5 mLs [...] 0, (swish and spit; do not swallow), [facility], 160, cm, 05/11/23 21:53:00 EST, [...] Active Dextromethorphan / guaiFENesin (2 sources) Uncompetitive E-zaaodv-A-asparta te Receptor Antagonist, Sigma-1 Agonist End: 06-24-2020 [...] day(s), # 15 tab(s), Refills(s) 0, Pharmacy: [facility], 160, cm, 05/13/23 11:33:00 EST, Height/Length [...] for Pain. 0 05/10/2023 Discontinued (LIST CLEANUP) [id number] 200 actuat albuterol 0.09 mg/actuat metered dose [...] Oral, Every 4 hours PRN, indigestion, [facility] 06/14/19 at 0831 azithromycin 250 mg oral [...] Oral, Daily PRN, constipation, For constipation., [facility] 06/14/19 at 0831 naloxone (NARCAN) injection 0.1 [...] Translations: [Accidental overdose of heroin, initial encounter ([facility])] Episodic Substance-related disorders (1 source) Opioid abuse, [...] l admission (14 sources) Admission statuses; Translations: [jail (current) use of opiate analgesic] Onset: 05-18-2019 [...] Coag (Bld) [Time] 29.8 s Normal 23.9-33.8 [facility] Comment on above: Result Comment: IV Heparin Therapy Range: 62.0-94.0 Performed By: #### P T, PTT, BMP, CDP, TROPI #### [facility] [address] [place] [address] Ramp Jockey: Guero Sandoval MD Basic Metabolic Profon 10-04 Anion gap [Moles/Vol] 13 mmol/L Normal 11-21 [facility] Comment on above: Performed By: #### P T, PTT, BMP, CDP, TROPI #### [facility] [address] [place] [address] Ramp Jockey: Guero Sandoval MD BUN/CRE Ratio Result cannot be calculated, Creatinine below linear range. Normal 11-24 [facility] Comment on above: Performed By: #### P T, PTT, BMP, CDP, TROPI #### [facility] [address] [place] [address] Ramp Jockey: Guero Sandoval MD Calcium [Mass/Vol] 8.7 mg/dL Normal 8.6-10.4 [facility] Comment on above: Performed By: #### P T, PTT, BMP, CDP, TROPI #### [facility] [address] [place], [place] [phone] Ramp Jockey: Guero Sandoval MD Chloride [Moles/Vol] 105 mmol/L Normal 98-107 [facility] Comment on above: Performed By: #### P T, PTT, BMP, CDP, TROPI #### [facility] [address] [place], [place] [phone] Ramp Jockey: Guero Sandoval MD CO2 [Moles/Vol] 18 mmol/L Low 20-31 [facility] Comment on above: Performed By: #### P T, PTT, BMP, CDP, TROPI #### [facility] [address] [place], [place] [phone] Ramp Jockey: Guero Sandoval MD Creatinine [Mass/Vol] mg/dL Low 0.5-0.9 [facility] Comment on above: Performed By: #### P T, PTT, BMP, CDP, TROPI #### [facility] [address] [place], [place] [phone] Ramp Jockey: Guero Sandoval MD eGFR Can not be calculated Normal >60 [facility] Comment on above: Result Comment: These [...] P T, PTT, BMP, CDP, TROPI #### [facility] [address] [place], [place] [phone] Ramp Jockey: Guero Sandoval MD Glucose [Mass/Vol] 111 mg/dL High 70-99 [facility] Comment on above: Performed By: #### P T, PTT, BMP, CDP, TROPI #### [facility] [address] [place], [place] [phone] Ramp Jockey: Guero Sandoval MD Potassium [Moles/Vol] 3.8 mmol/L Normal 3.7-5.3 [facility] Comment on above: Performed By: #### P T, PTT, BMP, CDP, TROPI #### [facility] [address] [place] [address] Ramp Jockey: Guero Sandoval MD Sodium [Moles/Vol] 136 mmol/L Normal 135-144 [facility] Comment on above: Performed By: #### P T, PTT, BMP, CDP, TROPI #### [facility] [address] [place] [address] Ramp Jockey: Guero Sandoval MD Urea nitrogen [Mass/Vol] 6 mg/dL Normal 6-20 [facility] Comment on above: Performed By: #### P T, PTT, BMP, CDP, TROPI #### [facility] [address] [place] [phone] Ramp Jockey: Guero Sandoval MD Brain Natri. Peptideon 10-04 Pro-BNP <36 Normal 0-300 [facility] Comment on above: Result Comment: An a ge-independent cutoff point of 300 pg/ml has a 98% negative predictive value excluding acute heart failure. Performed By: #### B FIELD AIDE, TROPI #### [facility] [address] [place] [address] Ramp Jockey: Thor Hernández MD CBC with Diffon 10-05-2023 Abs. Basophil 0.04 k/uL Normal 0.00-0.20 [facility] Comment on above: Performed By: #### P T, PTT, BMP, CDP, TROPI #### [facility] [address] [place] [phone] Ramp Jockey: Guero Sandoval MD Abs.Imm.Granulocyte 0.16 k/uL Normal 0.00-0.30 [facility] Comment on above: Performed By: #### P T, PTT, BMP, CDP, TROPI #### [facility] [address] [place], [place] [phone] Ramp Jockey: Guero Sandoval MD Abs.Neutrophil (Seg) 8.05 k/uL High 2.5-7.0 [facility] Comment on above: Performed By: #### P T, PTT, BMP, CDP, TROPI #### [facility] [address] [place] [address] Ramp Jockey: Guero Sandoval MD Basophils/100 WBC (Bld) 0 % Normal 0-2 M [facility] Comment on above: Performed By: #### P T, PTT, BMP, CDP, TROPI #### [facility] [address] [place], [place] [phone] Ramp Jockey: Guero Sandoval MD Eosinophils (Bld) [#/Vol] 0.08 10*3/uL Normal 0.00-0.4 0 [facility] Comment on above: Performed By: #### P T, PTT, BMP, CDP, TROPI #### [facility] [address] [place] [address] Ramp Jockey: Guero Sandoval MD Eosinophils/100 WBC (Bld) 1 % Normal 0-5 [facility] Comment on above: Performed By: #### P T, PTT, BMP, CDP, TROPI #### [facility] [address] [place], [place] [phone] Ramp Jockey: Guero Sandoval MD Erythrocyte distribution width (RBC) [Ratio] 13.1 % Normal 12.1-15.2 [facility] Comment on above: Performed By: #### P T, PTT, BMP, CDP, TROPI #### [facility] [address] [place] [phone] Ramp Jockey: Guero Sandoval MD Hematocrit (Bld) [Volume fraction] 28.8 % Low 36.0-46.0 [facility] Comment on above: Performed By: #### P T, PTT, BMP, CDP, TROPI #### [facility] [address] [place] [phone] Ramp Jockey: Guero Sandoval MD Hemoglobin (Bld) [Mass/Vol] 9.8 g/dL Low 12.0-16.0 [facility] Comment on above: Performed By: #### P T, PTT, BMP, CDP, TROPI #### [facility] [address] [place] [phone] Ramp Jockey: Guero Sandoval MD Immature granulocytes/100 WBC (Bld) 2 % Normal 0-5 [facility] Comment on above: Performed By: #### P T, PTT, BMP, CDP, TROPI #### [facility] [address] [place] [phone] Ramp Jockey: Guero Sandoval MD Lymphocytes (Bld) [#/Vol] 1.61 10*3/uL Normal 1.00-4.8 0 [facility] Comment on above: Performed By: #### P T, PTT, BMP, CDP, TROPI #### [facility] [address] [place] [phone] Ramp Jockey: Guero Sandoval MD Lymphocytes/100 WBC (Bld) 15 % Normal 15-40 [facility] Comment on above: Performed By: #### P T, PTT, BMP, CDP, TROPI #### [facility] [address] [place] [phone] Ramp Jockey: Guero Sandoval MD MCH (RBC) [Entitic mass] 27.7 pg Normal 26.0-34.0 [facility] Comment on above: Performed By: #### P T, PTT, BMP, CDP, TROPI #### [facility] [address] [place] [address] Ramp Jockey: Guero Sandoval MD MCHC (RBC) [Mass/Vol] 34.0 g/dL Normal 31.0-37.0 [facility] Comment on above: Performed By: #### P T, PTT, BMP, CDP, TROPI #### [facility] [address] [place] [address] Ramp Jockey: Guero Sandoval MD MCV (RBC) [Entitic vol] 81.4 fL Normal 80.0-100.0 [facility] Comment on above: Performed By: #### P T, PTT, BMP, CDP, TROPI #### [facility] [address] [place] [address] Ramp Jockey: Guero Sandoval MD Monocytes (Bld) [#/Vol] 0.77 10*3/uL Normal 0.00-1.00 [facility] Comment on above: Performed By: #### P T, PTT, BMP, CDP, TROPI #### [facility] [address] [place] [address] Ramp Jockey: Guero Sandoval MD Monocytes/100 WBC (Bld) 7 % Normal 4-8 M [facility] Comment on above: Performed By: #### P T, PTT, BMP, CDP, TROPI #### [facility] [address] [place] [address] Ramp Jockey: Guero Sandoval MD Neutrophil (Seg) 75 % Normal 47-75 [facility] Comment on above: Performed By: #### P T, PTT, BMP, CDP, TROPI #### [facility] [address] [place] [address] Ramp Jockey: Guero Sandoval MD Platelet mean volume (Bld) [Entitic vol] 10.2 fL Normal 6.0-12.0 [facility] Comment on above: Performed By: #### P T, PTT, BMP, CDP, TROPI #### [facility] [address] [place] [address] ([phone] Ramp Jockey: Guero Sandoval MD Platelets (Bld) [#/Vol] 275 10*3/uL Normal 140-450 [facility] Comment on above: Performed By: #### P T, PTT, BMP, CDP, TROPI #### [facility] [address] [place] [address] [phone] Ramp Jockey: Guero Sandoval MD RBC (Bld) [#/Vol] 3.54 10*6/uL Low 4.00-5.20 [facility] Comment on above: Performed By: #### P T, PTT, BMP, CDP, TROPI #### [facility] [address] [place] [address] Ramp Jockey: Guero Sandoval MD WBC (Bld) [#/Vol] 10.7 10*3/uL Normal 3.5-11.0 [facility] Comment on above: Performed By: #### P T, PTT, BMP, CDP, TROPI #### [facility] [address] [place] [address] Ramp Jockey: Guero Sandoval MD CT CHEST PULMONARY EMBOLISM [...] Carlos Petersen MD 10/05/23 Final result Normal [facility] Liver Profileon 10-05-2023 Albumin [Mass/Vol] 3.0 g/dL Low 3.5-5.2 [facility] Comment on above: Performed By: #### L IVP #### [facility] [address] [place] [address] Ramp Jockey: Guero Sandoval MD Alkaline Phos 74 U/L Normal 35-104 [facility] Comment on above: Performed By: #### L IVP #### [facility] [address] [place] [address] Ramp Jockey: Guero Sandoval MD ALT [Catalytic activity/Vol] U/L Low 5-33 [facility] Comment on above: Performed By: #### L IVP #### [facility] [address] [place], [place] [phone] Ramp Jockey: Guero Sandoval MD AST [Catalytic activity/Vol] 9 U/L Normal <32 [facility] Comment on above: Performed By: #### L IVP #### [facility] [address] [place], [place] [phone] Ramp Jockey: Guero Sandoval MD Bilirubin [Mass/Vol] 0.3 mg/dL Normal 0.3-1.2 [facility] Comment on above: Performed By: #### L IVP #### [facility] [address] [place], [place] [phone] Ramp Jockey: Guero Sandoval MD Bilirubin, Indirect Can not be calculated Normal 0.0-1.0 [facility] Comment on above: Performed By: #### L IVP #### [facility] [address] [place], [place] [phone] Ramp Jockey: Guero Sandoval MD Bilirubin.indirect [Mass/Vol] mg/dL Normal <0.3 [facility] Comment on above: Performed By: #### L IVP #### [facility] [address] [place], [place] [phone] Ramp Jockey: Guero Sandoval MD Protein [Mass/Vol] 5.9 g/dL Low 6.4-8.3 [facility] Comment on above: Performed By: #### L IVP #### [facility] [address] [place], [place] [phone] Ramp Jockey: Guero Sandoval MD PTon 10-05-2023 INR Coag (PPP) [Relative time] 1.0 {INR} Normal [facility] Comment on above: Result Comment: Therapeutic Range: Moderate Anticoagulant Intensity: INR = 2.0-3.0 High Anticoagulant Intensity: INR = 2.5-3.5 Performed By: #### P T, PTT, BMP, CDP, TROPI #### [facility] [address] [place] [address] Ramp Jockey: Guero Sandoval MD PT Coag (PPP) [Time] 13.6 s Normal 11.5-14.2 [facility] Comment on above: Performed By: #### P T, PTT, BMP, CDP, TROPI #### [facility] [address] [place] [address] Ramp Jockey: Guero Sandoval MD Troponinon 10-05-2023 Troponin, High Sens <6 Normal 0-14 [facility] Comment on above: Result Comment: High Sensitivity Troponin values cannot be compared with other Troponin methodologies. Performed By: #### B FIELD AIDE, TROPI #### [address] [phone] Ramp Jockey: Thor Hernández MD Troponin, High Sens <6 Normal 0-14 [facility] Comment on above: Result Comment: High Sensitivity Troponin values cannot be compared with other Troponin methodologies. Performed By: #### P T, PTT, BMP, CDP, TROPI #### [facility] [address] [place] [address] Ramp Jockey: Guero Sandoval MD UA w/Reflex Cultureon 2023 Bilirubin, SemiQt,Ur Negative Normal NEG [facility] Comment on above: Performed By: #### U MICAO, UAX #### [facility] [address] [place] [address] Ramp Jockey: Thor Hernández MD Blood, Urine Negative Normal NEG [facility] Comment on above: Performed By: #### U MICAO, UAX #### [facility] [address] [place] [address] Ramp Jockey: Thor Hernández MD Clarity (U) Cloudy Abnormal CLEAR [facility] Comment on above: Performed By: #### U MICAO, UAX #### [facility] [address] [place] [address] Ramp Jockey: Thor Hernández MD Color (U) Yellow Normal YEL [facility] Comment on above: Performed By: #### U MICAO, UAX #### [facility] [address] [place] [address] Ramp Jockey: Thor Hernández MD Glucose Ql (U) 1+ mg/dL Abnormal NEG [facility] Comment on above: Performed By: #### U MICAO, UAX #### [facility] [address] [place] [address] Ramp Jockey: Thor Hernández MD Ketones Ql (U) TRACE Abnormal NEG [facility] Comment on above: Performed By: #### U MICAO, UAX #### [facility] [address] [place] [address] Ramp Jockey: Thor Hernández MD Leukocyte esterase Test strip Ql (U) Negative Normal NEG [facility] Comment on above: Performed By: #### U MICAO, UAX #### [facility] [address] [place] [address] Ramp Jockey: Thor Hernández MD Nitrite,Ur Negative Normal NEG [facility] Comment on above: Performed By: #### U MICAO, UAX #### [facility] [address] [place] [address] Ramp Jockey: Thor Hernández MD PH,Ur 6.0 Normal 5.0-8.0 [facility] Comment on above: Performed By: #### U MICAO, UAX #### [facility] [address] [place] [address] Ramp Jockey: Thor Hernández MD Protein Ql (U) TRACE Abnormal NEG [facility] Comment on above: Performed By: #### U MICAO, UAX #### [facility] [address] [place] [address] Ramp Jockey: Thor Hernández MD Spec. Burns,Ur 1.028 Normal 1.005-1.030 [facility] Comment on above: Performed By: #### U MICAO, UAX #### [address] [address] Ramp Jockey: Thor Hernández MD Urobilinogen,Ur Normal Normal 0.0-1.0 [facility] Comment on above: Performed By: #### U MICAO, UAX #### [address] [address] Ramp Jockey: Thor Hernández MD Urinalysis,Microon 4 Bacteria MODERATE Abnormal NONE [facility] Comment on above: Performed By: #### U MICAO, UAX #### [address] [address] Ramp Jockey: Thor Hernández MD Casts 2 TO 5 HYALINE Normal 0-8 [facility] Comment on above: Result Comment: Refe rence range defined for non-centrifuged specimen. Performed By: #### U MICAO, UAX #### [address] [address] Ramp Jockey: Thor Hernández MD Epithelial cells LM Ql (Urine sed) 20 TO 50 Normal 0-5 [facility] Comment on above: Performed By: #### U MICAO, UAX #### [address] [address] Ramp Jockey: Thor Hernández MD Urine RBC's 0 TO 2 Normal 0-4 [facility] Comment on above: Result Comment: Refe rence range defined for non-centrifuged specimen. Performed By: #### U MICAO, UAX #### [address] [address] Ramp Jockey: Thor Hernández MD Urine WBC's 5 TO 10 Normal 0-5 [facility] Comment on above: Performed By: #### U KAYDEN UAX #### [facility] [address] [address] Ramp Jockey: Thor Hernández MD AFP, Maternalon 07-28-2023 Determined by Ultrasound Normal [facility] Comment on above: Performed By: #### T SH, FT4, FT3 #### [facility] [address] [place] [address] Ramp Jockey: Thor Hernández MD #### AAFPM #### [facility] [address] [place] [address] Ramp Jockey: Thor Hernández MD [facility] [address] [place], [place] [phone] Ramp Jockey: Tim Vizcarra MD Due Date SEE NOTE Normal [facility] Comment on above: Result Comment: Resu lts for Estimated Due Date: 01 06 24 Performed By: #### T SH, FT4, FT3 #### [facility] [address] [place] [address] Ramp Jockey: Thor Hernández MD #### AAFPM #### [address] [address] Ramp Jockey: Thor Hernández MD [facility] [address] [place] [address] Ramp Jockey: Tim Vizcarra MD Family History No Normal [facility] Comment on above: Performed By: #### T SH, FT4, FT3 #### [facility] [address] [place] [address] Ramp Jockey: Thor Hernández MD #### AAFPM #### [facility] [address] [place] [address] Ramp Jockey: Thor Hernández MD [facility] [address] [place] [address] Ramp Jockey: Tim Vizcarra MD Gestat Age (exact) 16 wks, 4 days Normal [facility] Comment on above: Performed By: #### T SH, FT4, FT3 #### [address] [address] Ramp Jockey: Thor Hernández MD #### AAFPM #### [address] [address] Ramp Jockey: Thor Hernández MD [address] [phone] Ramp Jockey: Tim Vizcarra MD Ins Req Matern Diab No Normal [facility] Comment on above: Performed By: #### T SH, FT4, FT3 #### [address] [address] Ramp Jockey: Thor Hernández MD #### AAFPM #### [address] [address] Ramp Jockey: Thor Hernández MD [address] [phone] Ramp Jockey: Tim Vizcarra MD Interpretation Screen Neg Normal [facility] Comment on above: Result Comment: (NOT E) INTERPRETATION: SCREEN NEGATIVE for open spina bifida Neural Tube Defects (NTD) Negative Pre-Test Post-Test Cutoff Neural Tube Defects Risks 1:452 1:3230 1:103 Comments: The risk of an open neural tube defect is less than the twin screening cut-off. This test was developed and its performance characteristics determined by [employer]. It has not been cleared or approved by the [place] Food and Drug Administration. This test was performed in a CLIA certified laboratory and is intended for clinical purposes. Performed By: #### T SH, FT4, FT3 #### [address] [address] Ramp Jockey: Thor Hernández MD #### AAFPM #### [facility] [address] [place] [address] Ramp Jockey: Thor Hernández MD [address] [phone] Ramp Jockey: Tmi Vizcarra MD [age] [facility] Comment on above: Performed By: #### T , FT4, FT3 #### [facility] [address] [place] [address] Ramp Jockey: Thor Hernández MD #### AAFPM #### [facility] [address] [address] Ramp Jockey: Thor Hernández MD [address] [address] Ramp Jockey: Tim Vizcarra MD Maternal Race Nonblack [facility] Comment on above: Performed By: #### T SH, FT4, FT3 #### [facility] [address] [place] [address] Ramp Jockey: Thor Hernández MD #### AAFPM #### [address] [address] Ramp Jockey: Thor Hernández MD [address] [address] Ramp Jockey: Tim Vizcarra MD Maternal Weight 239.0 lbs. [facility] Comment on above: Performed By: #### T SH, FT4, FT3 #### [facility] [address] [place] [address] Ramp Jockey: Thor Hernández MD #### AAFPM #### [facility] [address] [address] Ramp Jockey: Thor Hernández MD [address] [address] Ramp Jockey: Tim Vizcarra MD MoM for AFP 1.71 Normal [facility] Comment on above: Performed By: #### T SH, FT4, FT3 #### [facility] [address] [place] [address] Ramp Jockey: Thor Hernández MD #### AAFPM #### [address] [address] Ramp Jockey: Thor Hernández MD [facility] [address] [place] [address] Ramp Jockey: Tim Vizcarra MD Number of Fetuses Twins Normal [facility] Comment on above: Performed By: #### T SH, FT4, FT3 #### [address] [address] Ramp Jockey: Thor Hernández MD #### AAFPM #### [address] [address] Ramp Jockey: Thor Hernández MD [address] [phone] Ramp Jockey: Tim Vizcarra MD Patient's AFP 46 ng/mL Normal [facility] Comment on above: Performed By: #### T SH, FT4, FT3 #### [address] [address] Ramp Jockey: Thor Hernández MD #### AAFPM #### [address] [address] Ramp Jockey: Thor Hernández MD [facility] [address] [place] [address] Ramp Jockey: Tim Vizcarra MD Smoking Unknown Normal [facility] Comment on above: Performed By: #### T SH, FT4, FT3 #### [address] [address] Ramp Jockey: Thor Hernández MD #### AAFPM #### [address] [address] Ramp Jockey: Thor Hernádnez MD [address] [address] Ramp Jockey: Tim Vizcarra MD Specimen See Note [facility] Comment on above: Result Comment: (NOT E) Initial sample Performed By: [facility] [address] [place] [address], [place] [address] Cutter Head Sharpener: Morro Modi MD, PhD CLIA Number: [id number] Performed By: #### T SH, FT4, FT3 #### [address] [address] Ramp Jockey: Thor Hernández MD #### AAFPM #### [address] [address] Ramp Jockey: Thor Hernández MD [address] [phone] Ramp Jockey: Tim Vizcarra MD [facility] 07-27-2023 Current Smoking INFORMATION NOT PROVIDED [facility] Comment on above: Performed By: #### T SH, FT4, FT3 #### [address] [address] Ramp Jockey: Thor Hernández MD #### AAFPM #### [address] [address] Ramp Jockey: Thor Hernández MD [address] [phone] Ramp Jockey: Tim Vizcarra MD [facility] Comment on above: Performed By: #### T SH, FT4, FT3 #### [address] [address] Ramp Jockey: Thor Hernández MD #### AAFPM #### [address] [address] Ramp Jockey: Thor Hernández MD [facility] [address] [place] [address] Ramp Jockey: Tim Vizcarra MD Diabetic Negative [facility] Comment on above: Performed By: #### T SH, FT4, FT3 #### [facility] [address] [place] [address] Ramp Jockey: Thor Hernández MD #### AAFPM #### [address] [address] Ramp Jockey: Thor Hernández MD [address] [phone] Ramp Jockey: Tim Vizcarra MD [employer] INFORMATION NOT PROVIDED [facility] [facility] Comment on above: Performed By: #### T SH, FT4, FT3 #### [address] [address] Ramp Jockey: Thor Hernández MD #### AAFPM #### [address] [address] Ramp Jockey: Thor Hernández MD [address] [id number] Ramp Jockey: Tim Vizcarra MD Estimated Due Date 01/06/2024 [facility] Comment on above: Performed By: #### T SH, FT4, FT3 #### [facility] [address] [place] [address] Ramp Jockey: Thor Hernández MD #### AAFPM #### [address] [address] Ramp Jockey: Thor Hernández MD [address] [id number] Ramp Jockey: Tim Vizcarra MD Family History Negative [facility] Comment on above: Performed By: #### T SH, FT4, FT3 #### [facility] [address] [place] [address] Ramp Jockey: Thor Hernández MD #### AAFPM #### [facility] [address] [place] [address] Ramp Jockey: Thor Hernández MD [facility] [address] [place], [place] [phone] Ramp Jockey: Tim Vizcarra MD In Vitro Fertalizat INFORMATION NOT PROVIDED [facility] Comment on above: Performed By: #### T SH, FT4, FT3 #### [facility] [address] [address] Ramp Jockey: Thor Hernández MD #### AAFPM #### [facility] [address] [address] Ramp Jockey: Thor Hernández MD [address] [address] Ramp Jockey: Tim Vizcarra MD LMP date 2023 [facility] Comment on above: Performed By: #### T SH, FT4, FT3 #### [facility] [address] [place] [address] Ramp Jockey: Thor Hernández MD #### AAFPM #### [address] [address] Ramp Jockey: Thor Hernández MD [facility] [address] [place], [place] [phone] Ramp Jockey: Tim Vizcarra MD Maternal date 1990 [facility] Comment on above: Performed By: #### T SH, FT4, FT3 #### [facility] [address] [place] [address] Ramp Jockey: Thor Hernández MD #### AAFPM #### [facility] [address] [place] [address] Ramp Jockey: Thor Hernández MD [facility] [address] [place] [address] Ramp Jockey: Tim Vizcarra MD Maternal Weight 239 Normal [facility] Comment on above: Performed By: #### T SH, FT4, FT3 #### [facility] [address] [place] [address] Ramp Jockey: Thor Hernández MD #### AAFPM #### [address] [address] Ramp Jockey: Thor Hernández MD [facility] [address] [place] [address] Ramp Jockey: Tim Vizcarra MD Monochorionic Twins Positive Normal [facility] Comment on above: Performed By: #### T SH, FT4, FT3 #### [address] [address] Ramp Jockey: Thor Hernández MD #### AAFPM #### [address] [address] Ramp Jockey: Thor Hernández MD [facility] [address] [place] [address] Ramp Jockey: Tim Vizcarra MD Patient Weight Units LBS Normal [facility] Comment on above: Performed By: #### T SH, FT4, FT3 #### [facility] [address] [place] [address] Ramp Jockey: Thor Hernández MD #### AAFPM #### [address] [address] Ramp Jockey: Thor Hernández MD [facility] [address] [place] [address] Ramp Jockey: Tim Vizcarra MD Race (Maternal) Normal [facility] Comment on above: Performed By: #### T SH, FT4, FT3 #### [address] [address] Ramp Jockey: Thor Hernández MD #### AAFPM #### [address] [address] Ramp Jockey: Thor Hernández MD [address] [phone] Ramp Jockey: Tim Vizcarra MD Repeat Specimen INFORMATION NOT PROVIDED [facility] Comment on above: Performed By: #### T SH, FT4, FT3 #### [address] [address] Ramp Jockey: Thor Hernández MD #### AAFPM #### [address] [address] Ramp Jockey: Thor Hernández MD [address] [phone] Ramp Jockey: Tim Vizcarra MD Valproic/Carbamazep INFORMATION NOT PROVIDED [facility] Comment on above: Performed By: #### T SH, FT4, FT3 #### [address] [address] Ramp Jockey: Thor Hernández MD #### AAFPM #### [address] [address] Ramp Jockey: Thor Hernández MD [address] [address] Ramp Jockey: Tim Vizcarra MD Thyroxine, Freeon 07-27-2023 Thyroxine, Free 1.0 ng/dL Normal 0.92-1.68 [facility] Comment on above: Performed By: #### T SH, FT4, FT3 #### [address] [address] Ramp Jockey: Thor Hernández MD #### AAFPM #### [address] [address] Ramp Jockey: Thor Hernández MD [address] [address] Ramp Jockey: Tim Vizcarra MD Protein,Tot,Dunlap Uron 2023 Creatinine [Mass/Vol] 273.0 mg/dL High 28.0-217.0 [facility] Comment on above: Performed By: #### U RTPRT #### [address] [address] Ramp Jockey: Thor Hernández MD Tot Prot. Conc. 21 mg/dL Normal [facility] Comment on above: Result Comment: No n ormal range established. Performed By: #### U RTPRT #### [address] [address] Ramp Jockey: Thor Hernández MD TP/Cre Ratio 0.08 Normal [facility] Comment on above: Performed By: #### U RTPRT #### [address] [address] Ramp Jockey: Thor Hernández MD T3, Freeon 8 Free T3 [Mass/Vol] 3.40 pg/mL Normal 2.00-4.40 [facility] Comment on above: Performed By: #### T SH, FT4, FT3 #### [address] [address] Ramp Jockey: Thor Hernández MD #### AAFPM #### [address] [address] Ramp Jockey: Thor Hernández MD [employer] [address] [place] [address] Ramp Jockey: Tim Vizcarra MD Thyroid Stim. Horm.on 2023 Thyroid Stim. Horm. <0.01 Low 0.27-4.20 [facility] Comment on above: Performed By: #### T SH, FT4, FT3 #### [facility] [address] [place], [place] [phone] Ramp Jockey: Thor Hernández MD #### AAFPM #### [facility] [address] [place], [place] [phone] Ramp Jockey: Thor Hernández MD [facility] [employer] [address] [place] [address] Ramp Jockey: Tim Vizcarra MD ED Note-Physicianon 05-14-19 ED [...] see dentistry until she is cleared by [employer]. She does not have an appointment for [employer] to next week. She has no OB [...] day(s), # 15 tab(s), Refills(s) 0, Pharmacy: [facility], 160, cm, 05/13/23 11:33:00 EST, Height/Length [...] Oral, q6hr Follow-up With When Contact Information [employer] [facility] In 3 days 05/16/2023 EDT [address] [place] [address] Business (1) Additional Instructions: Dentistry follow-up Patient [...] made to ensure accuracy, however, inadvertently computerized director imaging mistakes may be present. Appropriate healthcare PPE was used in evaluating this patient. Problem List/Past Medical History Ongoing Acute hepatitis C Anxiety Apnea, sleep Dental caries PCOS (polycystic ovarian syndrome) Historical No qualifying data Procedure/Surgical History Delivery. Medications Inpatient ampicillin-sulbacta m additive + Sodium Chloride 0.9% intravenous solution 100 (more content not included)... Normal [facility] Comment on above: Result Comment: Elec tronically Signed By: Greg Stratton PA-C\.br\Date and Time Signed: 05/13/23 12:45 EST\.br\Electronically Co-Signed By: Jonathan Martinez DO\.br\Date and Time Co-Signed: 05/14/23 07:40 EST Consent for Treatmenton Consent for Treatment [id number] EC#1.00TIFF Normal [facility] Discharge Instructionson Discharge Instructions [id number] 53#1.00TIFF Normal [facility] ED Clinical Summaryon 2023 ED Clinical Summary [place] [id number] ED Clinical Summary Person Information Name: TIA MONROE [facility] Age: 33 Years : 1990 Sex: Female Language: Cambodian PCP: Linda Sheppard DO Marital Status: Visit [...] 13:02:19 05/13/2023 13:02:19 05/13/2023 13:02:19 ADDRESS: [address] [facility] [id number] PHYS DOC NOTES: MEDICAL INFORMATION: Prescriptions Given: New Medications [facility], [address], [place] [id number], [phone] oxycodone (oxyCODONE 5 mg Tab) 1 Tablets [...] Dental Abscess Follow up: With: Address: When: [address] [address] Business (1) In 3 days 05/16/2023 Comments: Dentistry follow-up DIAGNOSIS: Dental abscess Normal [facility] ED Patient Education Noteon 05-13-2023 [...] these instructions at home: Medicines ? Take rhwq-ggm-xpjqfqc and prescription medicines only as told by [...] mouth. ? (more content not included)... Normal [facility] ED Patient Summaryon 024 ED Patient Summary [address] [address] Patient Discharge Instructions Person Information Name: TIA MONROE Age: 33 Years Arrival Date: 05/13/2023 11:19:01 Discharge Diagnosis: Dental abscess Primary Care Physician: Linda Sheppard DO Provider Information Primary Provider: Jonathan Martinez DO Advanced Insulation Worker Apprentice:Greg Stratton PA-C The exam and treatment you received in the Emergency Department were for an urgent problem and are not intended as complete care. It is important that you follow up with a doctor, nurse practitioner, or physician?s payroll human resources assistant for ongoing care. If your symptoms become worse or you do not improve as expected and you are unable to reach your usual health care provider, you should return to the Emergency Department. We are available 24 hours a day. TIA MONROE has been given the following list of patient education materials, prescriptions and follow-up instructions: Follow-up Instructions: With: Address: When: [employer] [address] [address] Business (1) In 3 days 05/16/2023 Comments: Dentistry follow-up In the event that this physician does not participate in your insurance network, please consult with your insurance company to find a nearby participating provider. Patient Education Materials: Dental Abscess A MESSAGE TO ALL PATIENTS REGARDING OPIOIDS PRESCRIPTION OPIOIDS: WHAT YOU NEED TO KNOW Prescription opioids can be used to help relieve owzpbxlb-xz-koosec pain and are often prescribed following a [...] with addiction, tell your health health care technician and ask for guidance or call [facility] National Helpline at 6-604-3 (more content not included)... Normal [facility] Discharge Instructionson Discharge Instructions [id number] 40 [id number]#1.00TIFF Normal [facility] ED Clinical Summaryon 2023 ED Clinical Summary [place] [id number] ED Clinical Summary Person Information Name: TIA MONROE [facility] Age: 33 Years : 1990 Sex: Female Language: Cambodian PCP: Linda Sheppard DO Marital Status: Visit [...] 05/11/2023 23:59:00 05/11/2023 23:59:00 ADDRESS: [address] [facility] [id number] PHYS DOC NOTES: MEDICAL INFORMATION: Prescriptions Given: New Medications [facility], [address], [place] [id number], [phone] amoxicillin-clavula cindi (Augmentin 875 mg oral tablet) [...] Medication PATIENT EDUCATION INFORMATION: Instructions: Dental Pain, Cpup-cb-Vwjb Follow up: With: Address: When: Linda Sheppard DO, [address] [place] [address] In 3 days 05/14/2023 DIAGNOSIS: 1:Pain, dental; 2:Infected dental caries; 3:First trimester ; Periapical abscess without sinus Normal [facility] ED Note-Physicianon 05-12-19 ED Note-Physician Basic Information Time Seen: Violet Walters PA-C 05/11/2023 22:59 Chief Complaint pt arrives for c/o dental pain on the right upper side. states cannot see her denitist d/t being . pt states seen in [facility] and started on amoxcillin. History of Present Illness Patient is a 7-week 33-year-old female with history of PCOS that presents to the ED with her for evaluation of dental pain. Patient says pain started on Tuesday. She localizes it to the right upper jaw, radiates into her face ear and cheek. She went to [facility] yesterday and was initiated on amoxicillin [...] day(s), # 14 tab(s), Refills(s) 0, Pharmacy: [facility], 160, cm, 05/11/23 21:53:00 EST, Height/Length Dosing, 110, kg, 05/11/23 21:53:00 EST, Weight Dosing chlorhexidine topical, 0.018 gm, 15 mL, Oral, BID, 480 mL, Refill(s) 0, (swish and spit; do not swallow), [facility], 160, cm, 05/11/23 21:53:00 EST, Height/Length Dosing, 110, kg, 05/11/23 21:53:00 EST, Weight Dosing (more content not included)... Normal [facility] Comment on above: Result Comment: [...] these instructions at home: Medicines ? Take exdl-bbv-edvxpjn and prescription medicines only as told by [...] to the area. Brushing your teeth ? [place] your teeth twice a day using a [...] when you eat or drink. ? Take vxpj-qen-wrswvvq and prescription medicines only as told by [...] Reviewed: 11/26/2020 Elsevier Patient Education ? 2022 [employer] Normal [facility] ED Patient Summaryon 024 ED Patient Summary [address] [address] Patient Discharge Instructions Person Information Name: TIA MONROE Age: 33 Years Arrival Date: 05/11/2023 21:25:54 Discharge Diagnosis: 1:Pain, dental; 2:Infected dental caries; 3:First trimester ; Periapical abscess without sinus Primary Care Physician: Linda Sheppard DO Provider Information Primary Provider: Zac Fields M.D. Advanced Insulation Worker Apprentice:Violet Walters PA-C The exam and treatment you received in the Emergency Department were for an urgent problem and are not intended as complete care. It is important that you follow up with a doctor, nurse practitioner, or physician?s payroll human resources assistant for ongoing care. If your symptoms [...] Instructions: With: Address: When: Linda Sheppard DO [address] [place] [address], Amelie C, [facility] [address] [place], [place] [id number] In 3 days 05/14/2023 In the event that this physician does not participate in your insurance network, please consult with your insurance company to find a nearby participating provider. Patient Education Materials: Dental Pain, Fsaj-xo-Btlb A MESSAGE TO ALL PATIENTS REGARDING OPIOIDS PRESCRIPTION OPIOIDS: WHAT YOU NEED TO KNOW Prescription opioids can be used to help relieve brbgacmc-om-nkfqgl pain and are often prescribed following a [...] with addiction, tell your health health care technician an (more content not included)... Normal [facility] Consent for Treatmenton Consent for Treatment [id number] 96#1.00TIFF [facility] Progesteroneon 12-28-2022 Progesterone 12.60 ng/mL Normal [facility] Comment on above: Result Comment: Female: Follicular phase <0.19 ng/mL Ovulation phase 0.06-4.14 ng/mL Luteal phase 4.11-14.5 ng/mL Postmenopausal <0.13 ng/mL Performed By: #### P NICKY #### [employer] [address] [place] [address] Ramp Jockey: Thor Hernández MD Progesteroneon 11-24-2022 Progesterone 7.18 ng/mL High 0.0-0.15 [facility] Comment on above: Result Comment: Female: Follicular phase <0.19 ng/mL Ovulation phase 0.06-4.14 ng/mL Luteal phase 4.11-14.5 ng/mL Postmenopausal <0.13 ng/mL Performed By: #### P NICKY #### [employer] [address] [place] [address] Ramp Jockey: Thor Hernández MD , Urineon HCG ( test) Ql (U) Negative NEGATIVE [facility] XR ANKLE RIGHT (MIN 3 VIEWS) on 09-04-2022 FINDINGS/IMPRESSION : No acute displaced fracture identified. Ankle mortise is symmetric. There is a 1 mm tiny calcified body which is remote appearing near the distal fibular tip. Minimal ankle soft tissue edema. [facility] EXAM: XR ANKLE RIGHT (MIN 3 VIEWS) INDICATION: Reason for exam:->swelling COMPARISON: None. TECHNIQUE: Radiographs as described above [facility] Bettye Johnson MD - 09/04/2022 EXAM: XR ANKLE RIGHT (MIN 3 VIEWS) INDICATION: Reason for exam:->swelling COMPARISON: None. TECHNIQUE: Radiographs as described above IMPRESSION: FINDINGS/IMPRESSION : No acute displaced fracture identified. Ankle mortise is symmetric. There is a 1 mm tiny calcified body which is remote appearing near the distal fibular tip. Minimal ankle soft tissue edema. [facility] Radiology Study observation (narrative) [facility] XR ANKLE RIGHT (MIN 3 VIEWS) Ordered By: Bettye Johnson on 09-04-2022 [facility] Work Phone: Coding Summary.on 07-09-2022 Coding Summary. CD:[id number] bWw+PGhlYWQ+ED4ZIJQ tF61juLUpoA1vP1WSKG lOSywgQVBQTElOSyIgb bAgCK4gzKAiQDRv IC8+FP8rLSXcPuttqDO kj0T7lHX9P68fzx9tRN xvwQB2VOLmQyYczflhd 9xxwCr6DVcfDtreIaYy OGYboG46HGF8yS88Je4 6iCJueKDca3fieMu5Jn NdTLKwLMV0pCgpOVlwx 0YfXYHkB15pkAWlu2G2 IGNvbGxhcHNlOyBlbXB 8vF6gYHtmnpyzg4sexb ayAul6de16kHVgv9O5e EV4J0YqqgN7VUEgeVZh ZxjrdXJJeV4aycfkj6q rbihoKeHzYDKmTPx4JP m4WSGmiNngOnXnVJ96K BW5IYCyslWrJ0MoIKHs fWcxBaF0a3E9Sz6FG0A ZUflfH0PVUGJQJRxjgM Q+QL69de13T5JqLfjkS tj6CTGmNXZ7wAY3hD5e DNCvERtnl0Q8kDE1U6L uxxBiia0nc7ctTHRbDJ cqW86wwKOoq9L3FOPnd UH7OAFrgVwuRhJnbN36 Oyc+NNCokXmqo8ViNgg ag5lqz8dfuNi9XzsgIG RpcpWsxKtdOFU5p6HdR q5rPXXkaHO1wXY6jH0t PaQxZaZ0VHiyP226AfV zjIQeLdpfG45yG6KnsR A+YVKsKkd4NFKrcPnfW G4xZ3GnIQLypqmqlLEi wUlcWC2qYYXmpooqAEE ksY6jWOGxV0f8RtWfRk S8GOqbF1CqWVLviyacA v19fS9zZiBuJwF8IGti D0ZqisL4YWJpkSIuTMx gTSH4Z55df9J0TMBoTZ JoSNI2wCS5bO5ueDexs jogbGVmdDsgdmVydGlj RHsbZUleB015KXGpdAc nPkNvZGluZyBEYXRlOi AgMDUvMDUvMjAyMzwvd GQ+LYVdHKM4yGphEBOw rSAkFPqaMw2qtAidjWu uPE7fPAHtwskxHDPfvO 1yCNKsePIczPonVA4gC TShwuvze933TlKuFKX2 KWQrzQKlA0CxqD6sCzJ tZPPeYCTxE3NnkODwJG caE798QJheWqA1ZWDhc kYiD5CrBDLltClyAzM1 e3B0Py1Qk9UbfyyjW0E auWIiRpSaDbpiAQf4D2 RkPjwvdHI+MF85IZGfE F03JFa2BWQ9eAnyGTpt SXReF8TclS1mJkNmZIX kZGRkOyc+PHRhYmxlIH dpZHRoPScxMDAlJyBzd ArqPY0qKr4rPLKvNDCe uDaxkQPmCrDds8suTSN bATmxXT5knTqhG7VwiX J8GKMhv8s6Xs04Z57rH 3JvdXA+CGSptXS0fUW6 dL7qXmIlRrC4XTczA30 5UdZxnJUjMtimn7oup5 fzkIo1JwU7IDTrajYyi FbvHPN0a0LzHw12N62b IHdpZHRoPSIxNSUiIHZ neVrttu7ubE2vRy2+PG WvoRG6eBO5kQ0yWpUfT yZ4LVatG245CcUwbDDw Zcyrz2prc8cjbXe8RyT hCUCdjpQusLduTEU9y6 KwIl19A6LkwJpqq2FaM ti0el51qEBin7Z9xMM3 G2KfNDGovlvljSTwbSp hAZ7lKUCjyhdcYYEuwG 0tDUDxW6r2WcNjJeX2G FhdG9JcbuJ8FVQwpSJp MRKygSEFrE8ugwora2u qezzeZxYjMTJqJFe4JT x0SMUgeVlmNgQeCHB0L rH2KOM4sLKvpD9qlImx bfxzmY6tVov+TTA7oRZ vwCQTQK0sWssnyOF+PH PcXHB3iXitQIqxCZVuz B2bMOTfS9r0DyHxTwD5 WEfvA8StzjY1IBMywWS jXSRqvHDXnN2iragkr8 ugucpxWrJaWGIlXEf5M Ua5YKOrzWekGzVmNKM5 NyU2RIA0uOTdpB8zgZd pnysfaM3dEbx+QmlydG phAQW5EOu2T9SfIsn3S LTzaPwiFR6hoGIbRMsq Jt0mnGqsiSqnGD9xEZO lrhjci432EfRme6ugAH TliTBxSExoUAF4E19cb 1L5PARkNSClBUV7hHU4 rY3baPedevyarFStdBo gdmVydGljYWwtYWxpZ2 09AQVsgUnhCyPlULz1K 1IjQkn8BIYtfDcgES0p eSMyONaiKj7nbAfrjQe kDS4qGTChfwhyq778Zw Jrh2asHMRwpEGqHBlxZ NZ5G80mr2K4UKAwVOQz TPQ7sJP6tU0uiVjbjyx gbGVmdDsgdmVydGljYW ocSWbzH689YXWydJybF pEmbLc1K3LrGia1BJDj pDkxRC7gwOQdFRqbWe4 tbWzhrRxnFX8nEDKgts mgx986IhJri2feMHHia CWoDGajOWW8Y22lw4U6 HIRdOIObQJE8dTG3mW1 hbGlnbjogbGVmdDsgdm EwjKusSYioVCmdO387E HRvcDsnPlBhdGllbnQg NNlnZRo8I0TgJfvhdEN +DV94HIOdCZ56cXTtrX Kpt7fijXx8PtMbNLOoV GL0vNtmACllh9SmNBBa I90eyHJtg8D0WQUazLn xsVRcGeWfiXF0kB6dQQ myhlwzx7mafymhXiafd 0rmvn62mM55W75gUMtn ZHRoPSIzMCUiIHZhbGl izv5hwO6bRu5+PGNvbC E7lUA5iE0pSANmShN4W TweQ710PiXkvHCjLaab u9efu0gztWj8XtL2PGH bbxYviHukEDJ1a0HcNe 95Q49gUCkzVQTkZPNwH FAxEGSdvIzxhc8kcJ1n Ii8+HIFgrVW2bSV6kA7 nSsAnPwW9FBubC871Kt AniEOvBqllH69sN2Dzz XA+DWHlEcj5WLJfwIba VA6rtBYwUFstCa2cALM 0GlMmEgHuUSkrZ3EdLH OtqcpnlyilfPT9EEXdK HYswN45Xr2feYvmBIGz uTIHjV4idjabx0sxcme uHtOjCDSfKCk7XGj9HT ArrTrpQpAzDUC5EmP6H IE6zXQreO3rwQfftacj rT7rQ8FmENSqcpjuGv2 4cC3gKzAoOfF6KGldUg c+De7QRiFYSwkgTbTRM kRJRTwvdGQ+PHRkIHN0 dOspSTomEHOktO6xPZA oM2k9DfYcPiN7JSkdX5 OzYZBepehlYn10gZ3yH xDsLrV4YOyiH4LctoN9 JFJatVYdJIeqPMP9I80 xq4X0JAAxZIMtMJA8tL V6sX2ggDxcqmrtwJZek DsgdmVydGljYWwtYWxp K729OJMkjYqmQsJdYxD 3EnD4EXP3F2GwByi4XD UajJjdSU8uqTRuFXgpW z4bsOsxnHqkCX3oPTDa emjjNNKfdX7oUUPjmJV qsQqmZV2wVTSejlvhi3 22GxIxAPZ9SHGskJGdS 3UpjF0dPaCeNAQqYRZa K3XjxFVtEAlbR280CHr uTzJ5BEStlzQeX8VtVQ ZupNicCyA4d3S2Je2yQ iBZZWFyczwvdGQ+PHRk PCS6oQwtBQvyZPYsfN2 gKSWbD1f2AlOnJyT1ZA gxA6OeBMGolcxfCa69u I5rYbBaMtS1DEtyT7Rk sjW3RKFwvIXoEVcsPRH 1M80cq8C1BFTtDMKhMM R7eSS9aZ2jpLgbnkvbj GVmdDsgdmVydGljYWwt FRcjT730QPAfyEhxIvI lbWFsZTwvdGQ+PHRkIH O2vRzwZTnmICLodI1jX PHoX1p4AbXvZkE3KDuv L1MpFOYzedhuKc37gS0 wStRyYyB4BMcwY9Hfzl H3ANYspERaCXhhVPM5I 50os7S9QZJdJWIyQTD6 lSU7oE8lhHjpbpcjnBS mdDsgdmVydGljYWwtYW mlT810FOAxqKgcPgXdt H8gDSObQFazwULjzHfk dGQ+ID37rk14K4ZoZaq vVpp5WZQsYZY2uPS8tZ 5jNZIoEKcob4W1sYF6N 3DlszCqwt0xy8whHPEf VLsnL12dsAZzn8R0GDY tzYG1HZYjrXkwHeFztE 93Oyc+BEBydJnie9XpF gbso3vpw9gqlEl8IqOw IBBroiTocPtvSIW6k2S fOl23B61dKIvqGZNlBV QuGNMkIOXxrEyywq9cz G9wIi8+YAVwiRC6lUM0 qL3cMsIxZhK6CNwwR74 7KfWlmVIpDtrsh8ggf6 rzjQo5TyBzTTQpnpUby YvkEER3e0ByEz50G0Jv gPifb5NwYvj4tq76aXP vi5Z7qKN5T7KsXUYsao rxgTYpbJgcZS3lIPExh nvzESNhuS2tCUJwD6d9 UpDcHuT3OWjtY9SyfhH 6IGJvbGQgMTBwdCBUaW 6immiiw1xdnkxxBjQbF LTdHPn5PGl6EWBbnRzp GrUySGJ3MdQ7RHW2wYK yrQ5ffBxdovbomC2kTg c+LPg4c3eruBOhBL0hk ZN5IS41TT16tREep0X3 eKH9O0IxQEHrkbeqpev jlFD3YMIsDTXbbN02Wv 2qfQtzZk8tFELnKNN8X ELzuXHdZ6IkaK9uJoVz EISaFBYmI8WhzLHvAJj yF477EGgsVeP0WCRyan KiR9HsLGUouRhiTgM9i 8E2Ga8CIU58FD49QA95 qZDnr2W7aAG1J5EzFBH wriuifabpkHT1KQKqMT KffS88Sy6zvEknJk7sM VAoUCY2TNLjmIFzQ7Mu xW6eYpQfQVXaSVYbI0T ecIOzPUvuE444FFydDh S5WBSxukXlI5CaJDZqo RjfHoL3m0A0Am3BQi69 NI26RY89sTLjm6F5pHU 0D9JsDKSyxjpgfcqpqR C5TJVeHDAkeX66Th7yc UldJk0sQERbYPO3DRBm lUBkL6QdpI4oWrBrWYH lPHHxX3IdqXDuZMktK0 89WOikJbL8DXLsovRkA 0IqRNGzkTkdWuI9g8Z0 Cs8GEJsvygv8J9SaJgv vdHI+WU29ISPxNV67tT QmvCDgk5vbvDt3CvCvF SKbUVN1aQkgBMkjr1Ut XZToZ05k (more content not included)... Normal [facility] Consultation Noteon 07-07-19 Consultation Note [...] Problems Acute hepatitis C / SNOMED CT 587592309 / Confirmed Anxiety / SNOMED CT 45896765 / Confirmed Apnea, sleep / SNOMED CT 841356111 / Confirmed Dental caries / SNOMED CT 939048411 / Confirmed PCOS (polycystic ovarian syndrome) / SNOMED CT 669258734 / Confirmed Histories Past Medical History: Active Dental caries ([id number]) Family History: No family history items have [...] Patient agrees with plan of care. Normal [facility] Comment on above: Result Comment: Elec tronically Signed By: Bing PEDRAZA, Todd Lilly\.br\Date and Time Signed: 07/06/22 13:28 EDT DHEA SERUMon 07-04-2022 Dehydroepiandrosterone (DHEA) 220 ng/dL Normal 31-701 [facility] Comment on above: Performed By: #### D KAN. ####[facility] [address] [place], [place] [address]MuSelwyn Layneshivam Daniel DHEA-SULFATEon 06-30-2022 DHEA-Sulfate 106.0 ug/dL Normal 84.8-378.0 [facility] Comment on above: Performed By: #### D DEEPTI ####[facility] [id number] [place] [address]Dr. Nito Sanchez FSHon 06-30-2022 FSH 6.6 mIU/mL Normal [facility] Comment on above: Result Comment: Adul t Female: Follicular phase 3.5 - 12.5 Ovulation phase 4.7 - 21.5 Luteal phase 1.7 - 7.7 Postmenopausal 25.8 - 134.8 Performed By: #### L [facility] #### [facility] [address] [address] [address] Nito Sanchez LUTEINIZING HORMONE (LH)on 0 06-30-2022 LH 18.9 mIU/mL Normal [facility] Comment on above: Result Comment: Adul t Female: Follicular phase 2.4 - 12.6 Ovulation phase 14.0 - 95.6 Luteal phase 1.0 - 11.4 Postmenopausal 7.7 - 58.5 Performed By: #### L BCLH #### [facility] [address] [place] [address] Dr. Nito Sanchez PROLACTINon 06-30-2022 Prolactin 5.3 ng/mL Normal 4.8-23.3 [facility] Comment on above: Performed By: #### P ROLAC #### [facility] [address] [address] [address] Nito Sanchez CBC AUTO DIFFon 06-29-2022 BASO # 0.1 103/ul Normal 0.0-0.1 [facility] Comment on above: Performed By: #### C BC #### [facility] [address] [address] [address] Nito Sanchez Basophils/100 WBC (Bld) 0.5 % Normal 0.2-2.0 [facility] Comment on above: Performed By: #### C BC #### [facility] [address] [address] [address] Nito Sanchez EO # 0.2 103/ul Normal 0.0-0.7 [facility] Comment on above: Performed By: #### C BC #### [facility] [address] [place] [address] Dr. Nito Sanchez Eosinophils/100 WBC (Bld) 1.6 % Normal 0.9-7.0 [facility] Comment on above: Performed By: #### C BC #### [facility] [address] [place] [address] Dr. Nito Sanchez Erythrocyte distribution width (RBC) [Ratio] 13.6 % Normal 11.0-15.0 [facility] Comment on above: Performed By: #### C BC #### [facility] [address] [place] [address] Dr. Nito Sanchez Hematocrit (Bld) [Volume fraction] 39.7 % Normal 36.0-48.0 [facility] Comment on above: Performed By: #### C BC #### [facility] [address] [place] [address] Dr. Nito Sanchez Hemoglobin (Bld) [Mass/Vol] 13.1 g/dL Normal 12.0-16.0 [facility] Comment on above: Performed By: #### C BC #### [facility] [address] [place] [address] Dr. Nito Sanchez IG # 0.05 10e3/ul Critically high 0.00-0.03 [facility] Comment on above: Performed By: #### C BC #### [facility] [address] [place] [address] Dr. Nito Sanchez IG % 0.5 % Normal 0.0-0.5 [facility] Comment on above: Performed By: #### C BC #### [facility] [address] [place] [address] Dr. Nito Sanchez LYMPH # 2.6 103/ul Normal 1.2-3.8 [facility] Comment on above: Performed By: #### C BC #### [facility] [address] [place] [address] Dr. Nito Sanchez Lymphocytes/100 WBC (Bld) 25.3 % Normal 20.5-60.0 [facility] Comment on above: Performed By: #### C BC #### [facility] [address] [place] [address] Dr. Nito Sanchez MANUAL DIFF REQ NO Normal [facility] Comment on above: Performed By: #### C BC #### [facility] [address] [place] [address] Dr. Nito Sanchez MCH (RBC) [Entitic mass] 27.1 pg Normal 26.7-34.0 [facility] Comment on above: Performed By: #### C BC #### [facility] [address] [place] [address] Dr. Nito Sanchez MCHC (RBC) [Mass/Vol] 33.0 g/dL Normal 29.9-35.2 [facility] Comment on above: Performed By: #### C BC #### [facility] [address] [place] [address] Dr. Nito Sanchez MCV (RBC) [Entitic vol] 82.2 fL Normal 81.0-99.0 [facility] Comment on above: Performed By: #### C BC #### [facility] [address] [place] [address] Dr. Nito Sanchez MONO # 0.5 103/ul Normal 0.3-0.8 [facility] Comment on above: Performed By: #### C BC #### [facility] [address] [place] [address] Dr. Nito Sanchez Monocytes/100 WBC (Bld) 5.0 % Normal 1.7-12.0 [facility] Comment on above: Performed By: #### C BC #### [facility] [address] [place] [address] Dr. Nito Sanchez NEUT # 6.9 103/ul Critically high 1.4-6.5 [facility] Comment on above: Performed By: #### C BC #### [facility] [address] [place] [address] Dr. Nito Sanchez Neutrophils/100 WBC (Bld) 67.1 % Normal 43.0-75.0 [facility] Comment on above: Performed By: #### C BC #### [facility] [address] [place] [address] Dr. Nito Sanchez Platelet mean volume (Bld) [Entitic vol] 10.0 fL Normal 9.5-13.5 [facility] Comment on above: Performed By: #### C BC #### [facility] [address] [place] [address] Dr. Nito Sanchez PLT 313 103/ul Normal 150-450 [facility] Comment on above: Performed By: #### C BC #### [facility] [address] [place] [address] Dr. Nito Sanchez RBC 4.83 106/ul Normal 4.20-5.40 [facility] Comment on above: Performed By: #### C BC #### [facility] [address] [place] [address] Dr. Nito Sanchez WBC 10.3 103/ul Normal 4.0-11.0 [facility] Comment on above: Performed By: #### C BC #### [facility] [address] [place] [address] Dr. Nito Sanchez Consent for Treatmenton 06-06 Consent for Treatment [id number] 650#1.00CD:127 Normal [facility] FREE T4on 06-29-2022 Free T4 [Mass/Vol] 1.01 ng/dL Normal 0.76-1.46 [facility] Comment on above: Performed By: #### F T4 #### [facility] [address] [place] [address] Dr. Nito Sanchez GLYCOHEMOGLOBIN A1Con 2022 ADA RECOMMENDATION SEE BELOW Normal [facility] Comment on above: Result Comment: ADA RECOMMENDED LIMIT 4.0 - 6.0 ADA THERAPEUTIC TARGET < 7.0 ACTION SUGGESTED > 7.0 Performed By: #### A 1C #### [facility] [address] [place] [address] Dr. Nito Sanchez Glucose [Mass/Vol] 108 mg/dL Normal [facility] Comment on above: Performed By: #### A 1C #### [facility] [address] [place] [address] Dr. Nito Sanchez HbA1c (Bld) [Mass fraction] 5.4 % Normal 4.5-6.2 [facility] Comment on above: Performed By: #### A 1C #### [facility] [address] [place] [address] Dr. Nito Sanchez HIPAA Forms Officeon 023 HIPAA Forms Office [id number] 602#1.00CD:127 Normal [facility] Legal Correspondence Officeo n 06-29-2022 Legal Correspondence Office [id number] 270#1.00CD:127 Normal [facility] Legal Correspondence Office [id number] 787#1.00CD:127 Normal [facility] Office/Clinic Note-Physician on 06-29-2022 Office/Clinic Note-Physician [id number] 515#1.00CD:127 Normal [facility] Orders Officeon 06-29-2022 Orders Office [id number] 642#1.00CD:127 Normal [facility] PREG QUANT HCGon 06-29-2022 HCG QUANT 1 mIU/mL Normal [facility] Comment on above: Performed By: #### T BERNICE, PREGQNT #### [facility] [address] [place] [address] Dr. Nito Sanchez HCG RANGE SEE BELOW Normal [facility] Comment on above: Result Comment: 5-50 0.2-1 WEEK 50-500 1-2 WEEKS 100-5,000 2-3 WEEKS 500-10,000 3-4 WEEKS 1,000-50,000 4-5 WEEKS 10,000-100,000 5-6 WEEKS 15,000-200,000 6-8 WEEKS 10,000-100,000 2-3 MONTHS Performed By: #### T SH, PREGQNT #### [facility] [address] [id number] Nito Sanchez Patient Correspondenceon Patient Correspondence [id number]#1.00CD:127 Normal [facility] Patient Correspondence [id number] 137#1.00CD:127 Normal [facility] Patient Correspondence [id number] 273#1.00CD:127 Normal [facility] Patient Correspondence [id number]#1.00CD:127 Normal [facility] Patient Correspondence [id number]#1.00CD:127 Normal [facility] Patient History Officeon Patient History Office [id number]#1.00CD:127 Normal [facility] Patient History Office [id number] 721#1.00CD:127 Normal [facility] Radiology Outside Office Service Writer yon 06-29-2022 Radiology Outside Office Copy [id number] 142#1.00CD:127 Normal [facility] TSHon 06-29-2022 TSH 0.848 uIU/mL Normal 0.358-3.740 [facility] Comment on above: Performed By: #### T SH, PREGQNT #### [facility] [address] [address] [address] Nito Sanchez US PELVIS AND TRANSVAGon [...] by: BETTYE DANIELS Date: 2022-06-29 15:17 Normal [facility] PAP ACOG PANEL 2: 30 to 65on 06-19-2022 . . Normal [facility] Comment on above: Result Comment: Perf ormed at: WB Performed By: #### 4 [id number] #### [facility] [address] [address] [address] Nito Sanchez Age Gdln ACOG Testing 30-65 Normal [facility] Comment on above: Performed By: #### 4 [id number] #### [facility] [address] [address] [address] Nito Sanchez DIAGNOSIS: Comment Normal [facility] Comment on above: Result Comment: NEGA TIVE FOR INTRAEPITHELIAL LESION OR MALIGNANCY. Performed at: WB Performed By: #### 4 [id number] #### [facility] [address] [address] [address] Nito Sanchez HPV Aptima Negative Normal Negative [facility] Comment on above: Result Comment: This nucleic acid amplification test detects fourteen high-risk HPV types (16,18,31,33,35,39,45,51,52,56,58,59,66,68) without differentiation. Performed at: =G Performed By: #### 4 [id number] #### [facility] [address] [address] [address] Nito Sanchez HPV Genotype Reflex Comment Normal [facility] Comment on above: Result Comment: Crit eria not met, HPV Genotype not performed. Performed at: WB Performed By: #### 4 [id number] #### [facility] [address] [place] [address] Dr. Nito Sanchez Methodology: Comment Normal [facility] Comment on above: Result Comment: This liquid based ThinPrep(R) pap test was screened with the use of an image guided system. Performed at: WB Performed By: #### 4 [id number] #### [facility] [address] [place] [address] Dr. Nito Sanchez Note: Comment Normal [facility] Comment on above: Result Comment: The Pap smear is a screening test designed to aid in the detection of premalignant and malignant conditions of the uterine cervix. It is not a diagnostic procedure and should not be used as the sole means of detecting cervical cancer. Both false-positive and false-negative reports do occur. . Performed at: WB Performed By: #### 4 [id number] #### [facility] [address] [place] [address] Dr. Nito Sanchez Performed by: Comment Normal [facility] Comment on above: Result Comment: Nanda Treadwell, Vice President Of Engineering (ASCP) Performed at: WB Performed By: #### 4 [id number] #### [facility] [address] [place] [address] Dr. Nito Sanchez Specimen adequacy: Comment Normal [facility] Comment on above: Result Comment: Sati sfactory for evaluation. Endocervical and/or squamous metaplastic cells (endocervical component) are present. Performed at: WB Performed By: #### 4 [id number] #### [facility] [address] [place] [address] MAXILLOFACIAL WO CONTRAST on 05-11-2022 Recent extraction of the right mandibular and maxillary second molar teeth with presence of air in the respective tooth sockets. No evidence of edema in the sublingual space or the buccal space Probable periapical abscess involving the right maxillary premolar tooth adjacent to the first molar tooth. [facility] RIS CONSOLIDATED EXAM: CT MAXILLOFACIAL WO [...] visualized intracranial contents show no acute process. [facility] Phil Romero MD - 05/11/2022 EXAM: [...] tooth adjacent to the first molar tooth. [employer] Work Phone: Radiology Study observation (narrative) [employer] Work Phone: CT MAXILLOFACIAL WO CONTRAST Ordered By: Phil Mary on 05-11-2022 [employer] Work Phone: Urine Preg (Lab)on 3 Beta HCG ( test) Ql (U) Negative NEGATIVE FIMBex HCG, Quantitative, on 03-29-2022 hCG Quant NINF [employer] Comment on above: Non-preg premeno <=5 Postmeno <=8 Male <=3 If HCG results do not concur with clinical observations, additional testing to confirm results is recommended. [facility] COVID-19, Rapidon 07-22-2021 SARS-CoV-2 (COVID-19) RNA KALPESH+probe Ql (Unsp spec) Not detected Not Detected [facility] Comment on above: Rapid NAAT: The [...] management decisions. Fact sheet for Healthcare Providers: https://www.fda.gov/media/309056/download Fact sheet for Patients: https://www.fda.gov/media/457387/download Methodology: Isothermal Nucleic Acid Amplification Specimen Description .NASOPHARYNGEAL SWAB [facility] Strep Screen Group A Throato n 07-22-2021 S. pyogenes Ag Ql (Throat) Negative NEGATIVE [facility] Comment on above: Rapid Strep A negati ve. A negative Rapid Group A Strep Screen result does not rule out the possibility of Group A Streptococci in the specimen. A Group A Strep DNA test is available upon request. Source .THROAT SWAB [facility] MR LUMBAR SPINE WITHOUT CONTRAST [...] foraminal stenosis. 2. No fracture or spondylolisthesis. [facility] Workstation ID: [id number] Dictated by: JONATHAN LINARES on TueJun 18, 2021 11:51:00 AM EDT Transcribed by: ZULMA CARDENAS on TueJun 18, 2021 11:58:13 AM EDT Finalized by: JONATHAN LINARES on TueJun 18, 2021 12:35:45 PM EDT Normal [facility] Comment on above: Order Comment: Injur y/Trauma or Illness?:Illness/Other How long have you had these symptoms (acute/chronic)?:Chronic Reason for exam?:LBP AND bilat hip pain x years, nki Type of Exam?:Subsequent/Follow-up Additional signs and symptoms?:. CBC panel Auto (Bld)on 04-16 Erythrocyte distribution width (RBC) [Entitic vol] 14.0 % 11.6 - 14.8 % [facility] Hematocrit (Bld) [Volume fraction] 38.6 % 36.0 - 46.0 % [facility] Hemoglobin (Bld) [Mass/Vol] 12.1 g/dL 12.0 - 16.0 g/dL [facility] Interpretation and review of laboratory results Abnormal [facility] MCH (RBC) [Entitic mass] 25.4 pg Low 26. 0 - 34.0 pg [facility] MCHC (RBC) [Mass/Vol] 31.3 g/dL 31.0 - 37.0 g/dL [facility] MCV (RBC) [Entitic vol] 81.1 fL 80.0 - 100.0 fL [facility] Platelet mean volume (Bld) [Entitic vol] 10.0 fL 9.4 - 12.4 fL [facility] Platelets (Bld) [#/Vol] 379 10*3/uL [facility] RBC (Bld) [#/Vol] 4.76 10*6/uL [facility] WBC (Bld) [#/Vol] 9.85 10*3/uL [facility] Comprehensive metabolic 2000 panelon 04-16-2021 Albumin [Mass/Vol] 3.7 g/dL 3.2 - 5.2 g/dL [facility] ALP [Catalytic activity/Vol] 95 U/L 40 - 140 U/L [facility] ALT [Catalytic activity/Vol] 36 U/L 14 - 65 U/L [facility] Anion gap [Moles/Vol] 11 mmol/L 10 - 2 0 mmol/L [facility] AST [Catalytic activity/Vol] 22 U/L 0 - 45 U/L [facility] Bilirubin [Mass/Vol] 0.3 mg/dL 0.0 - 1 .3 mg/dL [facility] Calcium [Mass/Vol] 9.3 mg/dL 8.4 - 10. 2 mg/dL [facility] Chloride [Moles/Vol] 105 mmol/L 98 - 10 8 mmol/L [facility] Creatinine [Mass/Vol] 0.68 mg/dL 0.40 - 1.10 [facility] GFR/1.73 sq M.predicted CKD-EPI (S/P/Bld) [Vol rate/Area] 117 >=60 mL/min/1.73 m2 [facility] Glucose [Mass/Vol] 76 mg/dL 65 - 99 mg/dL [facility] HCO3 [Moles/Vol] 26 mmol/L 21 - 32 mmol/L [facility] Interpretation and review of laboratory results Normal [facility] Potassium [Moles/Vol] 4.2 mmol/L 3.5 - 5.1 mmol/L [facility] Protein [Mass/Vol] 7.5 g/dL 6.0 - 8.0 g/dL [facility] Sodium [Moles/Vol] 138 mmol/L 135 - 145 mmol/L [facility] Urea nitrogen [Mass/Vol] 13 mg/dL 8 - 25 mg/dL [facility] Urea nitrogen/Creatinine [Mass ratio] 19.1 mg/mg [facility] The eGFR should be used for monitoring renal function only and not for medication dosing. [facility] Lipid 1996 panelon 2 Cholesterol [Mass/Vol] 195 mg/dL 100 - 199 mg/dL [facility] Comment on above: National Cholesterol Education Program Guidelines: Cholesterol Desirable: <200 mg/dL Borderline High: 200-239 mg/dL High: greater than or equal to 240 mg/dL Cholesterol in HDL [Mass/Vol] 56 mg/dL 40 - 59 [facility] Comment on above: National Cholesterol Education Program Guidelines: HDL Cholesterol Low: <40 mg/dL Near Optimal: 40-59 mg/dL High: greater than or equal to 60 mg/dL Cholesterol in LDL [Mass/Vol] 109 mg/dL 10 - 130 mg/dL [facility] Comment on above: National Cholesterol Education Program Guidelines: LDL Cholesterol Optimal: <100 mg/dL Near Optimal/above Optimal: 100-129 mg/dL Borderline High: 130-159 mg/dL High: 160-189 mg/dL Very High: greater than or equal to 190 mg/dL Cholesterol non HDL [Mass/Vol] 139 mg/dL [facility] Comment on above: National Cholesterol Education Program Guidelines: NON HDL Cholesterol Desirable: <130 mg/dL Borderline High: 130-159 mg/dL High: 160-189 mg/dL Very High: > or = 190 mg/dL Cholesterol.total/Cholest elton in HDL [Mass ratio] 3.5 {ratio} ratio [facility] Comment on above: Female Cholesterol/H DL Ratio: Average risk: 4.4 1/2 average risk: 3.3 2 x average risk: 7.1 Interpretation and review of laboratory results Abnormal [facility] Triglyceride [Mass/Vol] 151 mg/dL High 30 - 150 mg/dL [facility] Comment on above: National Cholesterol Education Program Guidelines: Triglyceride Normal: <150 mg/dL Borderline High: 150-199 mg/dL High: 200-499 mg/dL Very High: greater than or equal to 500 mg/dL No Panel Informationon 04-16 [facility] TSH DL <= 0.005 mIU/L Qnon 0 04-16-2021 Interpretation and review of laboratory results Normal [facility] TSH Qn 1.04 m[IU]/L [facility] Basic Metabolic Panel w/ Ref ray to MGon 03-23-2021 Anion gap [Moles/Vol] 13 mmol/L 9 - 17 mmol/L [facility] Calcium [Mass/Vol] 8.8 mg/dL 8.6 - 10. 4 mg/dL [facility] Chloride [Moles/Vol] 104 mmol/L 98 - 10 7 mmol/L [facility] [employer] CO2 [Moles/Vol] 21 mmol/L 20 - 31 mmol/L [facility] Creatinine [Mass/Vol] 0.65 mg/dL 0.50 - 0.90 mg/dL [facility] GFR >60 >60 mL/min [facility] GFR Non- >60 >60 mL/min [facility] GFR/1.73 sq M.predicted MDRD (S/P/Bld) [Vol rate/Area] [facility] Comment on above: Average GFR for 30-3 9 years old: 107 mL/min/1.73sq m Chronic Kidney Disease: <60 mL/min/1.73sq m Kidney failure: <15 mL/min/1.73sq m eGFR calculated using average adult body mass. Additional eGFR calculator available at: http://www.[employer]/multiple_crcl_2012.htm GFR/1.73 sq M.predicted MDRD (S/P/Bld) [Vol rate/Area] NOT REPORTED [facility] Glucose [Mass/Vol] 104 mg/dL High 70 - 99 mg/dL [facility] Interpretation and review of laboratory results Abnormal [facility] Potassium [Moles/Vol] 3.7 mmol/L 3.7 - 5.3 mmol/L [facility] Sodium [Moles/Vol] 138 mmol/L 135 - 144 mmol/L [facility] Urea nitrogen (BldV) [Mass/Vol] 15 mg/dL 6 - 20 mg/dL [facility] Urea nitrogen/Creatinine (Bld) [Mass ratio] [address] [facility] CBC Auto Differentialon 03-07 Absolute Eos # 0.10 [facility] Absolute Immature Granulocyte NOT REPORTED [facility] Absolute Lymph # 0.60 Low [facility] alth Absolute [place] # 0.50 [facility] Basophils (Bld) [#/Vol] 0.00 10*3/uL [facility] Basophils/100 WBC (Bld) 0 % 0 - 2 % [facility] Differential Type YES [facility] ealth Eosinophils/100 WBC (Bld) 2 % 0 - 5 % [facility] Hematocrit (Bld) [Volume fraction] 34.6 % Low 36 - 46 % [facility] Hemoglobin.gastrointestin al spec 1 Ql (Stl) 11.7 g/dL Low 12.0 - 16.0 g/dL [facility] Immature Granulocytes NOT REPORTED 0 % [facility] Interpretation and review of laboratory results Abnormal [facility] Lymphocytes/100 WBC (Bld) 13 % Low 15 - 40 % [facility] MCH (RBC) [Entitic mass] 26.4 pg 26 - 34 pg [facility] MCHC (RBC) [Mass/Vol] 33.8 g/dL 31 - 3 7 g/dL [facility] MCV (RBC) [Entitic vol] 78.2 fL Low 80 - 100 fL [facility] Monocytes/100 WBC (Bld) 10 % High 4 - 8 % [facility] NRBC Automated NOT REPORTED per 100 WBC [facility] Platelet distribution width (Bld) [Ratio] 14.4 % 12.1 - 15.2 % [facility] Platelet Estimate NOT REPORTED [facility] Platelet mean volume (Bld) [Entitic vol] NOT REPORTED 6.0 - 12.0 fL [facility] Platelets (Bld) [#/Vol] 259 10*3/uL [facility] RBC (Bld) [#/Vol] 4.43 10*6/uL 4.0 - 5.2 m/uL [facility] RBC (Bld) [#/Vol] NOT REPORTED [facility] Segmented neutrophils/100 WBC (Bld) 75 % 47 - 75 % [facility]60 [facility] [#/Vol] 4.8 10*3/uL [facility] WBC (Bld) [#/Vol] NOT REPORTED [facility] COVID-19, Rapidon 03-23-2021 Interpretation and review of laboratory results Abnormal [facility] SARS-CoV-2 (COVID-19) RNA KALPESH+probe Ql (Unsp spec) Detected Abnormal Not Detected [facility] Comment on above: Rapid NAAT: The [...] this assay. Fact sheet for Healthcare Providers: https://www.fda.gov/media/810254/download Fact sheet for Patients: https://www.fda.gov/media/354104/download Methodology: Isothermal Nucleic Acid Amplification Results reported to the appropriate Health Department Specimen Description .NASOPHARYNGEAL SWAB [facility] No Panel Informationon 03-23 Direct Exam Negative [facility] Rapid influenza A/B antigens on 03-23-2021 Special Requests NOT REPORTED [facility] Specimen Description .NASOPHARYNGEAL SWAB [facility] COVID-19, RapidOrdered By: Shayy Springer on 12-27-2020 SARS-CoV-2 (COVID-19) RNA KALPESH+probe Ql (Unsp spec) Not detected Not Detected [facility] Work Phone: Comment on above: Rapid [...] management decisions. Fact sheet for Healthcare Providers: https://www.fda.gov/media/720681/download Fact sheet for Patients: https://www.fda.gov/media/962012/download Methodology: Isothermal Nucleic Acid Amplification Specimen Description .NASOPHARYNGEAL SWAB [employer] Phone: [employer] Phone: Strep Screen Group A ThroatO rdered By: Wayne Springer on 12-27-2020 S. pyogenes Ag IA Ql (Unsp spec) Rapid Strep A negative. A negative Rapid Group A Strep Screen result does not rule out the possibility of Group A Streptococci in the specimen. A Group A Strep DNA test is available upon request. [employer] Phone: Special Requests NOT REPORTED [employer] Phone: Specimen Description .THROAT [employer] Phone: [employer] Phone: XR SHOULDER RIGHT (MIN 2 VIE WS)Ordered By: Anuj Quinn on 11-20-2020 No acute fracture or traumatic malalignment. [employer] Phone: EXAMINATION: XR SHOULDER RIGHT (MIN 2 VIEWS), , 11/20/2020 9:30 PM EDT INDICATION: Reason for exam:->shoulder pain HISTORY: Ordering Provider Reason for Exam: Technologist Note: Additional: COMPARISON: None. TECHNIQUE: Right shoulder x-ray: 3 view(s). FINDINGS: No acute fracture. Glenohumeral and acromioclavicular joints are anatomically aligned. Joint spaces are preserved. Soft tissues are unremarkable. [employer] Phone: Ward, pn Incoming Radiant Results From [employer] - 11/20/2020 9:55 PM EDT EXAMINATION: XR [...] IMPRESSION: No acute fracture or traumatic malalignment. [employer] Work Phone: [employer] Work Phone: COVID-19, MOLECULARon 2020 SARS-CoV-2 (COVID-19) RNA KALPESH+probe Ql (Unsp spec) Not detected Normal Not Detected [facility] Comment on above: Order Comment: [...] at the following links: For Healthcare Providers: https://www.fda.gov/media/671572/download For Patients: https://www.fda.gov/media/044402/download Performed By: #### L [id number] #### [facility] [address] [place] [address] Joe Rider M.D. [id number] HbA1c (Bld) [Mass fraction]O rdered By: Zelda Bautista on 07-09-2020 Interpretation and review of laboratory results Normal [facility] POC Hemoglobin [id number] By : Zelda Bautista on 07-09-2020 HbA1c (Bld) [Mass fraction] 5.2 % 4.0 - 6.0 % [facility] HbA1c (Bld) [Mass fraction]O rdered By: Lelo Gallegos on 06-09-2020 Interpretation and review of laboratory results Normal [facility] POC Hemoglobin [id number] By : Lelo Gallegos on 06-09-2020 HbA1c (Bld) [Mass fraction] 5.6 % 4.0 - 6.0 % [facility] CBC Auto Differentialon 03-08 Basophils (Bld) [#/Vol] 0.00 10*3/uL [place] Basophils/100 WBC (Bld) 0 % 0 - 2 % [place] Differential Type YES [place] Eosinophils (Bld) [#/Vol] 0.10 10*3/uL [place] Eosinophils/100 WBC (Bld) 1 % 0 - 5 % [place] Erythrocyte distribution width (RBC) [Ratio] 14.2 % 12.1 - 15.2 % [place] Hematocrit (Bld) [Volume fraction] 36.1 % 36 - 46 % [place] Hemoglobin (Bld) [Mass/Vol] 12.5 g/dL 12 - 16 g/dL [place] Interpretation and review of laboratory results Abnormal [place] Lymphocytes (Bld) [#/Vol] 2.00 10*3/uL [place] Lymphocytes/100 WBC (Bld) 14 % Low 15 - 40 % [place] MCH (RBC) [Entitic mass] 30.6 pg 26 - 34 pg [place] MCHC (RBC) [Mass/Vol] 34.5 g/dL 31 - 3 7 g/dL [place] MCV (RBC) [Entitic vol] 88.5 fL 80 - 100 fL [place] Monocytes (Bld) [#/Vol] 0.80 10*3/uL [place] Monocytes/100 WBC (Bld) 6 % 4 - 8 % [place] Platelet mean volume (Bld) [Entitic vol] NOT REPORTED 6 - 12 fL [place] Platelets (Bld) [#/Vol] 300 10*3/uL [place] Platelets (Bld) [#/Vol] NOT REPORTED [place] RBC (Bld) [#/Vol] 4.08 10*6/uL 4 - 5.2 m/uL [place] RBC morphology finding Nom (Bld) NOT REPORTED [place] Segmented neutrophils/100 WBC (Bld) 79 % High 47 - 75 % [place] Segs Absolute 10.70 High [place] WBC (Bld) [#/Vol] 13.6 10*3/uL [place] WBC (Bld) [#/Vol] NOT REPORTED per 100 WBC [place] WBC Morphology NOT REPORTED [place] COVID-19, PCRon 03-26-2020 SARS-CoV-2, Rapid Not Detected Not Detected [place] Comment on above: Rapid NAAT: The [...] management decisions. Fact sheet for Healthcare Providers: https://www.fda.gov/media/457257/download Fact sheet for Patients: https://www.fda.gov/media/511400/download Methodology: Isothermal Nucleic Acid Amplification Source .THROAT [place] Comprehensive Metabolic Pane l w/ Reflex to MGon 03-26-2020 Albumin [Mass/Vol] 3.3 g/dL Low 3.5 - 5.2 g/dL [place] Albumin/Globulin [Mass ratio] NOT REPORTED [place] ALP [Catalytic activity/Vol] 57 U/L 35 - 104 U/L [place] ALT [Catalytic activity/Vol] U/L Low 5 - 33 U/L [place] Anion gap [Moles/Vol] 11 mmol/L 9 - 17 mmol/L [place] AST [Catalytic activity/Vol] 9 U/L <32 [place] Bilirubin Ql (U) 0.10 mg/dL Low 0.3 - 1.2 mg/dL [place] Bun/Cre Ratio 21 High [place], [place] Calcium [Mass/Vol] 10.2 mg/dL 8.6 - 10. 4 mg/dL [place] Chloride [Moles/Vol] 104 mmol/L 98 - 10 7 mmol/L [place] CO2 [Moles/Vol] 21 mmol/L 20 - 31 mmol/L [place] Creatinine [Mass/Vol] 0.42 mg/dL Low 0.5 - 0.9 mg/dL [place] GFR >60 >60 mL/min [place] GFR Non- >60 >60 mL/min [place] GFR/1.73 sq M predicted among non-blacks MDRD (S/P/Bld) [Vol rate/Area] NOT REPORTED [place] GFR/1.73 sq M predicted among non-blacks MDRD (S/P/Bld) [Vol rate/Area] [place] Comment on above: Average GFR for 30-3 9 years old: 107 mL/min/1.73sq m Chronic Kidney Disease: <60 mL/min/1.73sq m Kidney failure: <15 mL/min/1.73sq m eGFR calculated using average adult body mass. Additional eGFR calculator available at: http://www.[employer] to transform cities.[employer]/multiple_crcl_2012.htm Glucose [Mass/Vol] 100 mg/dL High 70 - 99 mg/dL [place] Interpretation and review of laboratory results Abnormal [place] Potassium [Moles/Vol] 3.8 mmol/L 3.7 - 5.3 mmol/L [place] Protein [Mass/Vol] 6.5 g/dL 6.4 - 8.3 g/dL [place] Sodium [Moles/Vol] 136 mmol/L 135 - 144 mmol/L [place] Urea nitrogen [Mass/Vol] 9 mg/dL 6 - 20 mg/dL [place] Otheron 03-26-2020 SARS-CoV-2 [place] Immature granulocytes (Bld) [#/Vol] NOT REPORTED [place] Urinalysis, reflex to micros copicon 03-26-2020 Bilirubin U[facility] [place] [place] Color, UA YELLOW YELLOW [place] Glucose, Ur Negative NEGATIVE [place] Ketones Ql (U) Negative NEGATIVE [place] Leukocyte esterase Test strip Ql (U) Negative NEGATIVE [place] Nitrite, Urine Negative NEGATIVE [place] pH, UA 7.0 [place] Protein (U) [Mass/Vol] Negative NEGATIVE [place] Specific [place], UA 1.010 [place] Turbidity UA CLEAR CLEAR [place] Urinalysis Comments [place] Urine Hgb Negative NEGATIVE [place] Urobilinogen, Urine Normal Normal [place] Wet Prep, Genitalon 11-20-19 Direct Exam MODERATE EPITHELIAL CELLS Abnormal [place] Direct Exam FEW TRICHOMONAS SEEN Abnormal [place] Direct Exam MODERATE BACTERIA Abnormal [place] Direct Exam Few epithelials coated with bacteria resembling clue cells. Abnormal [place] Direct Exam NO FUNGAL ELEMENTS SEEN [place] Interpretation and review of laboratory results Abnormal [place] Special Requests NOT REPORTED [place] Specimen Description .VAGINAL SPECIMEN [place] WBC (Bld) [#/Vol] FEW WBC SEEN Abnormal [place] Basic Metabolic Panelon 06-05 Anion gap [Moles/Vol] 15 mmol/L 10 - 2 0 mmol/L [facility] Calcium [Mass/Vol] 8.6 mg/dL 8.4 - 10. 2 mg/dL [facility] Chloride [Moles/Vol] 102 mmol/L 98 - 10 8 mmol/L [facility] Creatinine [Mass/Vol] 0.36 mg/dL Low 0.40 - 1.10 [facility] GFR/1.73 sq M predicted among non-blacks MDRD (S/P/Bld) [Vol rate/Area] The eGFR should be used for monitoring renal function only and not for medication dosing. [facility] GFR/1.73 sq M.predicted CKD-EPI (S/P/Bld) [Vol rate/Area] 146 >=60 mL/min/1.73 m2 [facility] Glucose [Mass/Vol] 102 mg/dL High 65 - 99 mg/dL [facility] HCO3 [Moles/Vol] 25 mmol/L 21 - 32 mmol/L [facility] Interpretation and review of laboratory results Abnormal [facility] Potassium [Moles/Vol] 4.1 mmol/L 3.5 - 5.1 mmol/L [facility] Sodium [Moles/Vol] 138 mmol/L 135 - 145 mmol/L [facility] Urea nitrogen [Mass/Vol] 5 mg/dL Low 8 - 25 mg/dL [facility] Urea nitrogen/Creatinine [Mass ratio] 13.9 mg/mg [facility] Hepatic Function Panelon Albumin [Mass/Vol] 3.3 g/dL 3.2 - 5.2 g/dL [facility] ALP [Catalytic activity/Vol] 253 U/L High 40 - 140 U/L [facility] ALT [Catalytic activity/Vol] 686 U/L High 0 - 40 U/L [facility] AST [Catalytic activity/Vol] 349 U/L High 0 - 45 U/L [facility] Bilirubin [Mass/Vol] 6.0 mg/dL High 0 - 1.3 mg/dL [facility] Bilirubin.conjugated [Mass/Vol] 5.1 mg/dL High 0 - 0.4 mg/dL [facility] Interpretation and review of laboratory results Abnormal [facility] Protein [Mass/Vol] 6.8 g/dL 6 - 8 g/dL [facility] Bilirubin, Directon 06-16-19 20 Bilirubin.conjugated [Mass/Vol] 5.4 mg/dL High 0 - 0.4 mg/dL [facility] Interpretation and review of laboratory results Abnormal [facility] CBCon 06-16-2019 Erythrocyte distribution width (RBC) [Entitic vol] 15.1 % High 11.6 - 14.8 % [facility] Hematocrit (Bld) [Volume fraction] 38.5 % 36 - 46 % [facility] Hemoglobin (Bld) [Mass/Vol] 12.9 g/dL 12 - 16 g/dL [facility] Interpretation and review of laboratory results Abnormal [facility] MCH (RBC) [Entitic mass] 29.1 pg 26 - 34 pg [facility] MCHC (RBC) [Mass/Vol] 33.5 g/dL 31 - 3 7 g/dL [facility] MCV (RBC) [Entitic vol] 86.9 fL 80 - 100 fL [facility] Nucleated RBC (Bld) [#/Vol] 0.00 10*3/uL [facility] Nucleated RBC/100 WBC (Bld) [Ratio] 0.0 % [facility] Platelet mean volume (Bld) [Entitic vol] 11.3 fL 9 - 15.5 fL [facility] Platelets (Bld) [#/Vol] 185 10*3/uL [facility] RBC (Bld) [#/Vol] 4.43 10*6/uL [facility] WBC (Bld) [#/Vol] 6.48 10*3/uL [facility] Comprehensive Metabolic Pane cayden 06-16-2019 Albumin [Mass/Vol] 3.3 g/dL 3.2 - 5.2 g/dL [facility] ALP [Catalytic activity/Vol] 217 U/L High 40 - 140 U/L [facility] ALT [Catalytic activity/Vol] 825 U/L High 0 - 40 U/L [facility] Anion gap [Moles/Vol] 14 mmol/L 10 - 2 0 mmol/L [facility] AST [Catalytic activity/Vol] 544 U/L High 0 - 45 U/L [facility] Bilirubin [Mass/Vol] 5.9 mg/dL High 0 - 1.3 mg/dL [facility] Calcium [Mass/Vol] 8.4 mg/dL 8.4 - 10. 2 mg/dL [facility] Chloride [Moles/Vol] 103 mmol/L 98 - 10 8 mmol/L [facility] Creatinine [Mass/Vol] 0.32 mg/dL Low 0.40 - 1.10 [facility] GFR/1.73 sq M predicted among non-blacks MDRD (S/P/Bld) [Vol rate/Area] The eGFR should be used for monitoring renal function only and not for medication dosing. [facility] GFR/1.73 sq M.predicted CKD-EPI (S/P/Bld) [Vol rate/Area] 152 >=60 mL/min/1.73 m2 [facility] Glucose [Mass/Vol] 92 mg/dL 65 - 99 mg/dL [facility] HCO3 [Moles/Vol] 26 mmol/L 21 - 32 mmol/L [facility] Interpretation and review of laboratory results Abnormal [facility] Potassium [Moles/Vol] 4.3 mmol/L 3.5 - 5.1 mmol/L [facility] Protein [Mass/Vol] 6.2 g/dL 6 - 8 g/dL [facility] Sodium [Moles/Vol] 139 mmol/L 135 - 145 mmol/L [facility] Urea nitrogen [Mass/Vol] 4 mg/dL Low 8 - 25 mg/dL [facility] Urea nitrogen/Creatinine [Mass ratio] 12.5 mg/mg [facility] Bilirubin, Directon 06-15-19 20 Bilirubin.conjugated [Mass/Vol] 4.7 mg/dL High 0 - 0.4 mg/dL [facility] Interpretation and review of laboratory results Abnormal [facility] CBCon 06-15-2019 Erythrocyte distribution width (RBC) [Entitic vol] 14.8 % 11.6 - 14.8 % [facility] Hematocrit (Bld) [Volume fraction] 38.5 % 36 - 46 % [facility] Hemoglobin (Bld) [Mass/Vol] 12.6 g/dL 12 - 16 g/dL [facility] MCH (RBC) [Entitic mass] 29.0 pg 26 - 34 pg [facility] MCHC (RBC) [Mass/Vol] 32.7 g/dL 31 - 3 7 g/dL [facility] MCV (RBC) [Entitic vol] 88.5 fL 80 - 100 fL [facility] Nucleated RBC (Bld) [#/Vol] 0.00 10*3/uL [facility] Nucleated RBC/100 WBC (Bld) [Ratio] 0.0 % [facility] Platelet mean volume (Bld) [Entitic vol] 11.0 fL 9 - 15.5 fL [facility] Platelets (Bld) [#/Vol] 155 10*3/uL [facility] RBC (Bld) [#/Vol] 4.35 10*6/uL [facility] WBC (Bld) [#/Vol] 5.74 10*3/uL [facility] Comprehensive Metabolic Pane cayden 06-15-2019 Albumin [Mass/Vol] 3.2 g/dL 3.2 - 5.2 g/dL [facility] ALP [Catalytic activity/Vol] 193 U/L High 40 - 140 U/L [facility] ALT [Catalytic activity/Vol] 888 U/L High 0 - 40 U/L [facility] Anion gap [Moles/Vol] 15 mmol/L 10 - 2 0 mmol/L [facility] AST [Catalytic activity/Vol] 667 U/L High 0 - 45 U/L [facility] Bilirubin [Mass/Vol] 5.2 mg/dL High 0 - 1.3 mg/dL [facility] Calcium [Mass/Vol] 8.2 mg/dL Low 8.4 - 10. 2 mg/dL [facility] Chloride [Moles/Vol] 103 mmol/L 98 - 10 8 mmol/L [facility] Creatinine [Mass/Vol] 0.36 mg/dL Low 0.40 - 1.10 [facility] GFR/1.73 sq M predicted among non-blacks MDRD (S/P/Bld) [Vol rate/Area] The eGFR should be used for monitoring renal function only and not for medication dosing. [facility] GFR/1.73 sq M.predicted CKD-EPI (S/P/Bld) [Vol rate/Area] 146 >=60 mL/min/1.73 m2 [facility] Glucose [Mass/Vol] 122 mg/dL High 65 - 99 mg/dL [facility] HCO3 [Moles/Vol] 22 mmol/L 21 - 32 mmol/L [facility] Interpretation and review of laboratory results Abnormal [facility] Potassium [Moles/Vol] 3.8 mmol/L 3.5 - 5.1 mmol/L [facility] Protein [Mass/Vol] 5.8 g/dL Low 6 - 8 g/dL [facility]th Sodium [Moles/Vol] 136 mmol/L 135 - 145 mmol/L [facility] Urea nitrogen [Mass/Vol] 5 mg/dL Low 8 - 25 mg/dL [facility] Urea nitrogen/Creatinine [Mass ratio] 13.9 mg/mg [facility] NM HEPATOBILIARY WO EJECTION FRACTIONon 06-15-2019 [...] tree, and small bowel are not visualized. [facility] Opacified liver with no visualization of [...] regarding the presence or absence of cholecystitis. [employer] Workstation ID: [id number] [facility] Interface, Rad In [employer] - [...] regarding the presence or absence of cholecystitis. [employer] Workstation ID: [id number] [facility] APTTon 06-14-2019 aPTT Coag (Bld) [Time] 31.1 s [facility]- [place], [place] Comment on above: PTT Therapeutic Range: 61.7-88.4 Therapeutic range corresponds to plasma heparin levels of 0.3-0.7 U/mL. Acetaminophen Levelon 2019 Acetaminophen [Mass/Vol] 9.1 [facility] Interpretation and review of laboratory results Normal [facility] Bilirubin, Directon 06-14-19 20 Bilirubin.conjugated [Mass/Vol] 4.3 mg/dL High 0 - 0.4 mg/dL [facility] Interpretation and review of laboratory results Abnormal [facility] CBC WITH AUTO DIFFERENTIALon 06-14-2019 Erythrocyte distribution width (RBC) [Entitic vol] 14.5 % 11.6 - 14.8 % [facility] Hematocrit (Bld) [Volume fraction] 34.6 % Low 36 - 46 % [facility] Hemoglobin (Bld) [Mass/Vol] 11.6 g/dL Low 12 - 16 g/dL [facility] Interpretation and review of laboratory results Abnormal [facility] MCH (RBC) [Entitic mass] 29.7 pg 26 - 34 pg [facility] MCHC (RBC) [Mass/Vol] 33.5 g/dL 31 - 3 7 g/dL [facility] MCV (RBC) [Entitic vol] 88.5 fL 80 - 100 fL [facility] Nucleated RBC (Bld) [#/Vol] 0.00 10*3/uL [facility] Nucleated RBC/100 WBC (Bld) [Ratio] 0.0 % [facility] Platelet mean volume (Bld) [Entitic vol] 10.8 fL 9 - 15.5 fL [facility] Platelets (Bld) [#/Vol] 172 10*3/uL [facility] RBC (Bld) [#/Vol] 3.91 10*6/uL Low [facility] WBC (Bld) [#/Vol] 7.28 10*3/uL [facility] CT ABDOMEN PELVIS W IV CONTR AST Additional Contrast? Noneon 06-14-2019 Ward, pn Incoming Radiant Results From [employer] - 06/14/2019 12:27 AM EDT EXAMINATION: CT [...] liver function panel and consider ultrasound imaging. [place] Pericholecystic fluid versus gallbladder wall thickening and additional periportal edema. There are no visualized stones in the gallbladder gallbladder and/or hepatic pathology are suspected. Correlate with liver function panel and consider ultrasound imaging. [place] EXAMINATION: CT ABDOMEN PELVIS W IV [...] structures demonstrate no acute or concerning abnormality. [facility] [place], [place] CT COMPARISON IMPORTon 06-13 This order has been auto-finalized and does not contain a result. [facility] Comprehensive Metabolic Pane cayden 06-14-2019 Albumin [Mass/Vol] 3.0 g/dL Low 3.2 - 5.2 g/dL [facility] ALP [Catalytic activity/Vol] 183 U/L High 40 - 140 U/L [facility] ALT [Catalytic activity/Vol] 808 U/L High 0 - 40 U/L [facility] Anion gap [Moles/Vol] 16 mmol/L 10 - 2 0 mmol/L [facility] AST [Catalytic activity/Vol] 592 U/L High 0 - 45 U/L [facility] Bilirubin [Mass/Vol] 4.9 mg/dL High 0 - 1.3 mg/dL [facility] Calcium [Mass/Vol] 8.4 mg/dL 8.4 - 10. 2 mg/dL [facility] Chloride [Moles/Vol] 104 mmol/L 98 - 10 8 mmol/L [facility] Creatinine [Mass/Vol] 0.43 mg/dL 0.40 - 1.10 [facility] GFR/1.73 sq M predicted among non-blacks MDRD (S/P/Bld) [Vol rate/Area] The eGFR should be used for monitoring renal function only and not for medication dosing. [facility] GFR/1.73 sq M.predicted CKD-EPI (S/P/Bld) [Vol rate/Area] 138 >=60 mL/min/1.73 m2 [facility] Glucose [Mass/Vol] 79 mg/dL 65 - 99 mg/dL [facility] HCO3 [Moles/Vol] 21 mmol/L 21 - 32 mmol/L [facility] Interpretation and review of laboratory results Abnormal [facility] Potassium [Moles/Vol] 3.8 mmol/L 3.5 - 5.1 mmol/L [facility] Protein [Mass/Vol] 5.7 g/dL Low 6 - 8 g/dL [facility] Sodium [Moles/Vol] 137 mmol/L 135 - 145 mmol/L [facility] Urea nitrogen [Mass/Vol] 9 mg/dL 8 - 25 mg/dL [facility] Urea nitrogen/Creatinine [Mass ratio] 20.9 mg/mg High [facility] DRUGS OF ABUSE SCREEN, URINE on 06-14-2019 Amphetamines Ql (U) None Detected None Detected [facility] Comment on above: Urine Amphetamine Cu toff: < 1000 ng/mL = None Detected Barbiturates Screen Ql (U) None Detected None Detected [facility] Comment on above: Urine Barbiturates C utoff: < 200 ng/mL = None Detected Benzodiazepines Ql (U) None Detected None Detected [facility] Comment on above: Urine Benzodiazepine Cutoff: < 300 ng/mL = None Detected Cannabinoids Screen Ql (U) None Detected None Detected [facility] Comment on above: Urine Cannabinoids C utoff: < 50 ng/mL = None Detected Cocaine Ql (U) Positive Abnormal None Detected [facility] Comment on above: Urine Cocaine Cutoff : < 300 ng/mL = None Detected Interpretation and review of laboratory results Abnormal [facility] Methadone Screen Ql (U) None Detected Non e Detected [facility] Comment on above: Urine Methadone Cuto ff: < 300 ng/mL = None Detected Opiates Screen Ql (U) None Detected None Detected [facility] Comment on above: Urine Opiates Cutoff : < 300 ng/mL = None Detected Oxycodone Ql (U) None Detected None Detected [facility] Comment on above: Urine Oxycodone Cuto ff: < 100 ng/mL = None Detected Screen results should be used for treatment purposes only. Specimen will be kept for 2 weeks, if the sample is adequate. Confirmation testing can be initiated by calling the lab within 2 weeks. [facility] HEPATITIS PANEL, ACUTEon HAV IgM Ql (S) Negative Negative [facility] HBV core IgM Ql (S) Negative Negative [facility] HBV surface Ag Ql (S) Negative Negative [facility] HCV Ab Ql (S) Positive Abnormal Negative [facility] Comment on above: A positive antibody test requires additional follow-up testing, Hepatitis C Virus Quantitation, to determine if a person is currently infected with Hepatitis C. Interpretation and review of laboratory results Abnormal [facility] Test performed using Constantin DEVIKA immunoassay system [facility] Lactic Acid, Plasmaon 2019 Interpretation and review of laboratory results Normal [facility] Lactate [Moles/Vol] 0.8 mmol/L 0.6 - 2 mmol/L [facility] MORPHOLOGYon 06-14-2019 Platelets LM Ql (Bld) Normal Normal [facility] RBC morphology finding Nom (Bld) Normal [facility] MR MRCPon 06-14-2019 EXAMINATION: MR MRCP [...] Axial T1-weighted images were obtained in- and [id number]. Axial diffusion-weighted imaging was also performed. FINDINGS: The liver overall appears enlarged with the right hepatic lobe measuring 22.6 cm orswlahi-lm-uimajcz r. The spleen measures 14.6 cm tpnelckc-ur-txqeqtm r and is also mildly enlarged. There [...] the right kidney. Bowel pattern is nonobstructive. [facility] 1. Re-demonstration of diffuse periportal edema as well as significant circumferential gallbladder wall edema similar to that seen on prior CT study. 2. Mild hepatosplenomegaly. 3. No obvious gallstones. Negative for biliary or pancreatic ductal dilatation. Negative for choledocholithiasis . 4. Trace volume of abdominal ascites. [employer] Workstation ID: [id number] [facility] Interface, Rad In Asif Chavis - [...] Axial T1-weighted images were obtained in- and [id number]. Axial diffusion-weighted imaging was also performed. FINDINGS: The liver overall appears enlarged with the right hepatic lobe measuring 22.6 cm gtrtjmqr-rz-syqgaky r. The spleen measures 14.6 cm uaholmnb-kv-vtmjvpk r and is also mildly enlarged. There [...] . 4. Trace volume of abdominal ascites. [employer] Workstation ID: [id number] [facility] Manual Differentialon 2019 Basophils (Bld) [#/Vol] 0.00 10*3/uL [facility] Basophils/100 WBC (Bld) 0.0 % [facility] Eosinophils (Bld) [#/Vol] 0.00 10*3/uL [facility] Eosinophils/100 WBC (Bld) 0.0 % [facility] Lymphocytes (Bld) [#/Vol] 3.28 10*3/uL [facility] Lymphocytes/100 WBC (Bld) 37.0 % [facility] Monocytes (Bld) [#/Vol] 0.44 10*3/uL [facility] Monocytes/100 WBC (Bld) 6.0 % [facility] Neut[facility] (Bld) [#/Vol] 3.57 10*3/uL [facility] Neutrophils/100 WBC (Bld) 49.0 % [facility] Variant lymphocytes/100 WBC (Bld) 8.0 % [facility] PT/INRon 06-14-2019 INR Coag (PPP) [Relative time] 1.3 {INR} [facility] Interpretation and review of laboratory results Abnormal [facility] PT Coag (PPP) [Time] 15.5 s [facility] During the induction phase of oral anticoagulation, the INR may not reflect the anticoagulation status of the patient. Therapeutic ranges for INR's are: Most clinical situations: INR 2.0-3.0 Mechanical Prosthetic Valve: INR 2.5-3.5 Critical: INR >5.0 [facility] Protime-INRon 06-14-2019 INR Coag (PPP) [Relative time] 1.2 {INR} [facility] [place] Comment on above: * THERAPY INDICATIONS * REFERENCE RANGES Pts not on anti-coagulants 1.0 - 1.5 INR Low risk pts on anti-coagulants 2.0 - 3.0 INR High risk pts on anti-coagulants 2.5 - 3.5 INR Prevention of atrial thrombo-embolism 3.0 - 4.5 INR Interpretation and review of laboratory results Abnormal [facility] [place] PT Coag (PPP) [Time] 11.7 s [facility] [place], [place] Salicylate Levelon 0 Interpretation and review of laboratory results Abnormal [facility] Salicylates [Mass/Vol] mg/dL Low 10 - 20 mg/dL [facility] URINALYSISon 06-14-2019 Bacteria Auto Ql (U) Rare Abnormal None Se en /hpf [facility] Bilirubin Ql (U) Positive Abnormal Negative [facility] Comment on above: False positive urine bilirubins can occur in the setting of a large amount of hemoglobin and secondary to medications including anti-inflammatory agents, rifampin, and pyridium. Clarity Refractometry automated (U) Clear Clear [facility] Color (U) Erica Abnormal Colorless, Yellow [facility] Epithelial cells.squamous Auto (Urine sed) [#/Area] 4 [facility] alth Glucose Auto test strip (U) [Mass/Vol] Negative Negative mg/dL [facility] Hemoglobin Auto test strip Ql (U) Negative Negative [facility] Interpretation and review of laboratory results Abnormal [facility] Ketones (U) [Mass/Vol] >=80 Abnormal Negat krystal mg/dL [facility] Leukocyte esterase Auto test strip Ql (U) Negative Negative [facility] Mucus Auto (Urine sed) [#/Area] Rare None Seen, Rare /lpf [facility] Nitrite Auto test strip Ql (U) Negative Negative [facility] pH (U) 6.0 [pH] [facility] Protein (U) [Mass/Vol] 30 Abnormal Negat kyrstal mg/dL [facility] Comment on above: False positive resul ts may occur in urines with large amounts of hemoglobin, pH greater than 8.0, contrast medium, or disinfectants including ammonium compounds. RBC Auto (Urine sed) [#/Area] 2 [facility] Specific gravity (U) [Rel density] 1.028 High [facility] Urobilinogen (U) [Mass/Vol] >=4.0 Abnormal <2.0 mg/dL [facility] WBC Auto (Urine sed) [#/Area] 2 [facility] Microscopic examination is performed on all urinalysis samples and only positive findings are reported. The test for blood on the chemical analytic portion of urinalysis may also be positive due to hemoglobinuria and myoglobinuria and if red blood cells are present they are quantified by microscopic examination. [facility] US ABDOMEN LIMITED STUDYon 0 06-14-2019 [...] liver likely small hemangioma. Workstation ID: [id number] [employer] EXAMINATION: US ABDOMEN LIMITED STUDY HISTORY: RUQ [...] measures 10.7 cm in length. No hydronephrosis. [facility] 1. Contracted gallbladder limits evaluation. No cholelithiasis identified. Nonspecific edematous gallbladder wall thickening and reported positive sonographic Short's sign, cannot exclude acalculus cholecystitis. No biliary ductal dilatation. 2. 1.3 cm echogenic lesion left lobe of the liver likely small hemangioma. Workstation ID: [id number] [facility] Amylaseon 06-13-2019 Amylase [Catalytic activity/Vol] 22 U/L Low 28 - 100 U/L [place] CBC Auto Differentialon Basophils (Bld) [#/Vol] 0.00 10*3/uL [place] Basophils/100 WBC (Bld) 1 % 0 - 2 % [place] Differential Type YES [place] Eosinophils (Bld) [#/Vol] 0.00 10*3/uL [place] Eosinophils/100 WBC (Bld) 0 % 0 - 5 % [place] Erythrocyte distribution width (RBC) [Ratio] 14.9 % 12.1 - 15.2 % [place] Hematocrit (Bld) [Volume fraction] 43.3 % 36 - 46 % [place] Hemoglobin (Bld) [Mass/Vol] 14.3 g/dL 12 - 16 g/dL [place] Lymphocytes (Bld) [#/Vol] 2.50 10*3/uL [place] Lymphocytes/100 WBC (Bld) 30 % 15 - 40 % [place] MCH (RBC) [Entitic mass] 28.8 pg 26 - 34 pg [place] MCHC (RBC) [Mass/Vol] 33.1 g/dL 31 - 3 7 g/dL [place] MCV (RBC) [Entitic vol] 87.2 fL 80 - 100 fL [place] Monocytes (Bld) [#/Vol] 0.70 10*3/uL [place] Monocytes/100 WBC (Bld) 8 % 4 - 8 % [place] Platelet mean volume (Bld) [Entitic vol] NOT REPORTED 6 - 12 fL [place] Platelets (Bld) [#/Vol] 203 10*3/uL [place] Platelets (Bld) [#/Vol] NOT REPORTED [place] RBC (Bld) [#/Vol] 4.97 10*6/uL 4 - 5.2 m/uL [place] RBC morphology finding Nom (Bld) NOT REPORTED [place] Segmented neutrophils/100 WBC (Bld) 61 % 47 - 75 % [place] Segs Absolute 5.20 [place] WBC (Bld) [#/Vol] 8.4 10*3/uL [place] WBC (Bld) [#/Vol] NOT REPORTED per 100 WBC [place] WBC Morphology NOT REPORTED [place] Comprehensive Metabolic Pane l w/ Reflex to MGon 06-13-2019 Albumin [Mass/Vol] 4.1 g/dL 3.5 - 5.2 g/dL [place] Albumin/Globulin [Mass ratio] NOT REPORTED [place] ALP [Catalytic activity/Vol] 255 U/L High 35 - 104 U/L [place] ALT [Catalytic activity/Vol] 1116 U/L High 5 - 33 U/L [place] Anion gap [Moles/Vol] 17 mmol/L 9 - 17 mmol/L [place] AST [Catalytic activity/Vol] 665 U/L High <32 [place] Bilirubin Ql (U) 6.52 mg/dL High 0.3 - 1.2 mg/dL [place] Bun/Cre Ratio 17 [place] Calcium [Mass/Vol] 10.1 mg/dL 8.6 - 10. 4 mg/dL [place] Chloride [Moles/Vol] 95 mmol/L Low 98 - 10 7 mmol/L [place] CO2 [Moles/Vol] 24 mmol/L 20 - 31 mmol/L [place] Creatinine [Mass/Vol] 0.82 mg/dL 0.5 - 0.9 mg/dL [place] GFR >60 >60 mL/min [place] GFR Non- >60 >60 mL/min [place] GFR/1.73 sq M predicted among non-blacks MDRD (S/P/Bld) [Vol rate/Area] [place] Comment on above: Average GFR for 20-2 9 years old: 116 mL/min/1.73sq m Chronic Kidney Disease: <60 mL/min/1.73sq m Kidney failure: <15 mL/min/1.73sq m eGFR calculated using average adult body mass. Additional eGFR calculator available at: http://[email or web address].com/multiple_crcl_2012.htm GFR/1.73 sq M predicted among non-blacks MDRD (S/P/Bld) [Vol rate/Area] NOT REPORTED [place] Glucose [Mass/Vol] 134 mg/dL High 70 - 99 mg/dL [place] Interpretation and review of laboratory results Abnormal [place] Potassium [Moles/Vol] 3.7 mmol/L 3.7 - 5.3 mmol/L [place] Protein [Mass/Vol] 8.1 g/dL 6.4 - 8.3 g/dL [place] Sodium [Moles/Vol] 136 mmol/L 135 - 144 mmol/L [place] Urea nitrogen [Mass/Vol] 14 mg/dL 6 - 20 mg/dL [place] Drug screen multi urineon Amphetamine Screen, Ur Negative NEGATIVE [place] Comment on above: (Positive cutoff 500 ng/mL) Barbiturate Screen, Ur Negative NEGATIVE [place] Comment on above: (Positive cutoff 200 ng/mL) Benzodiazepine Screen, Urine Negative NEGATIVE [place] Comment on above: (Positive cutoff 150 ng/mL) Buprenorphine Urine NOT REPORTED NEGATIVE [place] Cannabinoid Scrn, Ur Negative NEGATIVE [place] Comment on above: (Positive cutoff 50 ng/mL) Cocaine Metabolite, Urine Positive Abnormal NEGATIVE [place] Comment on above: (Positive cutoff 150 ng/mL) Interpretation and review of laboratory results Abnormal [place] MDMA, Urine NOT REPORTED NEGATIVE [place] Methadone Screen, Urine Negative NEGATIVE [place] Comment on above: (Positive cutoff 200 ng/mL) Methamphetamine, Urine Negative NEGATIVE [place] Comment on above: (Positive cutoff 500 ng/mL) Opiates, Urine Positive Abnormal NEGATIVE [place] Comment on above: (Positive cutoff 100 ng/mL) Oxycodone Screen, Ur Negative NEGATIVE [place] Comment on above: (Positive cutoff 100 ng/mL) Phencyclidine, Urine Negative NEGATIVE [place] Comment on above: (Positive cutoff 25 ng/mL) Propoxyphene, Urine Negative NEGATIVE [place] Comment on above: (Positive cutoff 300 ng/mL) Test Information NOT REPORTED [place] Tricyclic Antidepressants, Urine Negative NEGATIVE [place] Comment on above: (Positive cutoff 300 ng/mL) Drug screen results are to be used for medical purposes only. All positive results are unconfirmed. Testing for employment or legal uses should be sent to a reference laboratory for confirmation. Lactic Acidon 06-13-2019 Lactate [Moles/Vol] 1.2 mmol/L 0.5 - 2. 2 mmol/L [place] Lipaseon 06-13-2019 Lipase [Catalytic activity/Vol] 8 U/L Low 13 - 60 U/L [place] Microscopic Urinalysison Amorphous, UA NOT REPORTED None [place] Bacteria, UA 2+ Abnormal None [place] Casts UA 5 TO 10 HYALINE /LPF [place] Casts UA 2 TO 5 WAXY /LPF [place] Crystals, UA NOT REPORTED None /HPF [place] Epithelial Cells UA LOADED /HPF [place] Interpretation and review of laboratory results Abnormal [place] Mucus, UA 4+ Abnormal [place] Other Observations UA NOT REPORTED NOT REQ. [place] RBC (U) [#/Vol] 5 TO 10 [place] Renal Epithelial, UA NOT REPORTED 0 /HPF [place] Trichomonas, UA NOT REPORTED None [place] WBC, UA 10 TO 20 0 /HPF [place] Yeast, UA NOT REPORTED None [place] - [place] Otheron 06-13-2019 Interpretation and review of laboratory results Abnormal [place] Immature granulocytes (Bld) [#/Vol] NOT REPORTED 0 % [place] , Urineon 0 Beta HCG ( test) Ql (U) Negative NEGATIVE [place] Urinalysis, reflex to micros copicon 06-13-2019 Bilirubin Urine 3+ Abnormal NEGATIVE [place] Color, UA BROWN Abnormal YELLOW [place] Glucose, Ur Negative NEGATIVE [place] Interpretation and review of laboratory results Abnormal [place] Ketones Ql (U) MODERATE Abnormal NEGATIVE [place] Leukocyte esterase Test strip Ql (U) 1+ Abnormal NEGATIVE [place] Nitrite, Urine Positive Abnormal NEGAT[place] pH, UA 5.0 [place] Protein (U) [Mass/Vol] 1+ Abnormal NEGATIVE [place] Specific [place], UA 1.020 [place] Turbidity UA CLEAR CLEAR [place] Urinalysis Comments [place] Urine Hgb TRACE Abnormal NEGATIVE [place] Urobilinogen, Urine 12 mg/dL Abnormal Normal [place] Vital Signs Date Time Vital Sign Value Performing Clinician Facility 10-05-2023 21:00-0400 Body temperature 99.61 [degF] Violet Juarez MD Work Phone: [facility] 10-05-2023 21:00-0400 Diastolic blood pressure 68 mm[Hg] Violet Juarez MD Work Phone: [facility] 10-05-2023 21:00-0400 Heart rate 93 /min Violet Juarez MD Work Phone: [facility] 10-05-2023 21:00-0400 Respiratory rate 16 /min Violet Juarez MD Work Phone: [facility] 10-05-2023 21:00-0400 SaO2% (BldA) [Mass fraction] 97 % Violet Juarez MD Work Phone: [facility] 10-05-2023 21:00-0400 Systolic blood pressure 114 mm[Hg] Violet Juarez MD Work Phone: [facility] 05-13-2023 11:27-0500 Body temperature 98.6 [degF] Jonathan Martinez [facility] 05-13-2023 11:27-0500 Diastolic blood pressure 78 mm[Hg] Jonathan Martinez [facility] 05-13-2023 11:27-0500 Heart rate 83 /min Jonathan Martinez [facility] 05-13-2023 11:27-0500 Respiratory rate 18 /min Jonathan Martinez [facility] 05-13-2023 11:27-0500 SaO2% (BldA) [Mass fraction] 97 % Jonathan Martinez [facility] 05-13-2023 11:27-0500 Systolic blood pressure 113 mm[Hg] Jonathan Martinez [facility] 05-11-2023 21:49-0500 Body temperature 98.06 [degF] [facility] 05-11-2023 21:49-0500 Diastolic blood pressure 84 mm[Hg] [facility] 05-11-2023 21:49-0500 Heart rate 105 /min [facility] 05-11-2023 21:49-0500 Respiratory rate 17 /min [facility] 05-11-2023 21:49-0500 SaO2% (BldA) [Mass fraction] 97 % [facility] 05-11-2023 21:49-0500 Systolic blood pressure 130 mm[Hg] Z[facility] 05-10-2023 11:41-0500 Body height 160 cm Chet Berumen DO Work Phone: [facility] [employer] 05-10-2023 11:41-0500 Body mass index (BMI) [Ratio] 44.29 kg/m2 Chet Berumen Work Phone: [facility] [employer] 05-10-2023 11:41-0500 Body temperature 97.9 [degF] Chet Berumen DO Work Phone: [facility] [employer] 05-10-2023 11:41-0500 Body weight 113.4 kg Chet Berumen DO Work Phone: [facility] [employer] 05-10-2023 11:41-0500 Diastolic blood pressure 76 mm[Hg] Chet Berumen DO Work Phone: [facility] [employer] 05-10-2023 11:41-0500 Heart rate 94 /min Chet Berumen Work Phone: [facility] [employer] 05-10-2023 11:41-0500 Respiratory rate 18 /min Chet Berumen Work Phone: [facility] [employer] 05-10-2023 11:41-0500 SaO2% (BldA) [Mass fraction] 96 % Chet Berumen Work Phone: [employer] 05-10-2023 11:41-0500 Systolic blood pressure 146 mm[Hg] Chet Berumen DO Work Phone: [employer] 09-04-2022 11:27-0400 Body height 160 cm Erin Lacy MD Work Phone: [employer] 09-04-2022 11:27-0400 Body mass index (BMI) [Ratio] 44.99 kg/m2 Erin Lacy MD Work Phone: [employer] 09-04-2022 11:27-0400 Body temperature 98.2 [degF] Erin Lacy MD Work Phone: [employer] 09-04-2022 11:27-0400 Body weight 115.21 kg Erin Lacy MD Work Phone: [employer] 09-04-2022 11:27-0400 Diastolic blood pressure 71 mm[Hg] Erin Lacy MD Work Phone: [employer] 09-04-2022 11:27-0400 Heart rate 88 /min Erin Lacy MD Work Phone: [employer] 09-04-2022 11:27-0400 Respiratory rate 18 /min Erin Lacy MD Work Phone: [employer] 09-04-2022 11:27-0400 SaO2% (BldA) [Mass fraction] 97 % Erin Lacy MD Work Phone: [employer] 09-04-2022 11:27-0400 Systolic blood pressure 124 mm[Hg] Erin Lacy MD Work Phone: [employer] 06-29-2022 09:49-0400 Diastolic blood pressure 57 mm[Hg] Todd Bing [facility] 06-29-2022 09:49-0400 Heart rate 73 /min Todd Bign [facility] 06-29-2022 09:49-0400 Mean blood pressure 76 mm[Hg] Todd Bing [facility] 06-29-2022 09:49-0400 Respiratory rate 16 /min Todd Bing [facility] 06-29-2022 09:49-0400 Systolic blood pressure 113 mm[Hg] Todd Bing [facility] 05-19-2022 19:28-0400 Body height 160 cm Erin Lacy MD Work Phone: [employer] 05-19-2022 19:28-0400 Body mass index (BMI) [Ratio] 45.17 kg/m2 Erin Lacy MD Work Phone: [employer] 05-19-2022 19:28-0400 Body weight 115.67 kg Erin Lacy MD Work Phone: [employer] 05-19-2022 19:25-0400 Body temperature 98.29 [degF] Erin Lacy MD Work Phone: [employer] 05-19-2022 19:25-0400 Diastolic blood pressure 68 mm[Hg] Erin Lacy MD Work Phone: [employer] 05-19-2022 19:25-0400 Heart rate 78 /min Erin Lacy MD Work Phone: [employer] 05-19-2022 19:25-0400 Respiratory rate 16 /min Erin Lacy MD Work Phone: [employer] 05-19-2022 19:25-0400 SaO2% (BldA) [Mass fraction] 98 % Erin Lacy MD Work Phone: [employer] 05-19-2022 19:25-0400 Systolic blood pressure 110 mm[Hg] Erin Lacy MD Work Phone: [employer] 05-11-2022 19:17-0500 Body height 160 cm Anuj Quinn MD Work Phone: [employer] 05-11-2022 19:17-0500 Body mass index (BMI) [Ratio] 45.06 kg/m2 Anuj Quinn MD Work Phone: [employer] 05-11-2022 19:17-0500 Body temperature 98.01 [degF] Anuj Quinn MD Work Phone: [employer] 05-11-2022 19:17-0500 Body weight 115.39 kg Anuj Quinn MD Work Phone: [employer] 05-11-2022 19:17-0500 Diastolic blood pressure 91 mm[Hg] Anuj Quinn MD Work Phone: [employer] [facility] 05-11-2022 19:17-0500 Heart rate 78 /min Anuj Quinn MD Work Phone: [employer] 05-11-2022 19:17-0500 Respiratory rate 18 /min Anuj Quinn MD Work Phone: [facility] [employer] 05-11-2022 19:17-0500 SaO2% (BldA) [Mass fraction] 96 % Anuj Quinn MD Work Phone: [employer] 05-11-2022 19:17-0500 Systolic blood pressure 121 mm[Hg] Anuj Quinn MD Work Phone: [employer] 10-12-2021 18:31-0400 Heart rate 93 /min Rishabh Mancini MD Work Phone: [employer] 10-12-2021 18:31-0400 Respiratory rate 16 /min Rishabh Mancini MD Work Phone: [employer] 10-12-2021 18:31-0400 SaO2% (BldA) [Mass fraction] 97 % Rishabh Mancini MD Work Phone: [employer] 10-12-2021 18:12-0400 Body height 160 cm Rishabh Mancini MD Work Phone: [employer] 10-12-2021 18:12-0400 Body mass index (BMI) [Ratio] 47.12 kg/m2 Rishabh Mancini MD Work Phone: [employer] 10-12-2021 18:12-0400 Body temperature 99.19 [degF] Rishabh Mancini MD Work Phone: [employer] 10-12-2021 18:12-0400 Body weight 120.66 kg Rishabh Mancini MD Work Phone: [facility] [employer] 10-12-2021 18:12-0400 Diastolic blood pressure 77 mm[Hg] Rishabh [facility]ancini MD [facility] Phone: [facility] 10-12-2021 18:12-0400 Systolic blood pressure 126 mm[Hg] Rishabh [facility]ancini MD [facility] Phone: [facility] 07-22-2021 10:38-0400 Body height 160 cm Clark Moser MD Work Phone: [facility] [employer] 07-22-2021 10:38-0400 Body mass index (BMI) [Ratio] 47.63 kg/m2 Clark [facility]oser MD [email or web address] 07-22-2021 10:38-0400 Body temperature 97.3 [degF] Clark [facility]oser MD [email or web address] 07-22-2021 10:38-0400 Body weight 121.97 kg Clark [facility]oser MD [email or web address] 07-22-2021 10:38-0400 Diastolic blood pressure 88 mm[Hg] Clark [facility]oser MD [email or web address] 07-22-2021 10:38-0400 Heart rate 104 /min Clark [facility]oser MD [email or web address] 07-22-2021 10:38-0400 Respiratory rate 18 /min Clark [facility]oser MD [email or web address] 07-22-2021 10:38-0400 SaO2% (BldA) [Mass fraction] 95 % Clark Moser MD [email or web address] 07-22-2021 10:38-0400 Systolic blood pressure 126 mm[Hg] Clark Moser MD Work Phone: [facility] [employer] 05-15-2021 09:11-0500 Body height 160 cm Angelito Harvey [facility] 05-14-2021 10:41-0500 Body height 160 cm Farhat Vang MD Work Phone: [facility] 05-14-2021 10:41-0500 Body mass index (BMI) [Ratio] 44.96 kg/m2 Farhat Vang MD Work Phone: [facility] 05-14-2021 10:41-0500 Body temperature 97.81 [degF] Farhat Vang MD Work Phone: [facility] 05-14-2021 10:41-0500 Body weight 115.12 kg Farhat Vang MD Work Phone: [facility] 05-14-2021 10:41-0500 Diastolic blood pressure 78 mm[Hg] Farhat Vang MD Work Phone: [facility] 05-14-2021 10:41-0500 Heart rate 98 /min Farhat Vang MD Work Phone: [facility] 05-14-2021 10:41-0500 Respiratory rate 18 /min Farhat Vang MD Work Phone: [facility] 05-14-2021 10:41-0500 SaO2% (BldA) [Mass fraction] 97 % Farhat Vang MD Work Phone: [facility] 05-14-2021 10:41-0500 Systolic blood pressure 124 mm[Hg] Farhat Vang MD Work Phone: [facility] 04-16-2021 10:15-0500 Body height 160 cm Farhat Vang MD Work Phone: [facility] 04-16-2021 10:15-0500 Body mass index (BMI) [Ratio] 44.44 kg/m2 Farhat Vang MD Work Phone: [facility] 04-16-2021 10:15-0500 Body temperature 98.01 [degF] Farhat Vang MD Work Phone: [facility] 04-16-2021 10:15-0500 Body weight 113.81 kg Farhat Vang MD Work Phone: [facility] 04-16-2021 10:15-0500 Diastolic blood pressure 78 mm[Hg] Farhat Vang MD Work Phone: [facility] 04-16-2021 10:15-0500 Heart rate 100 /min Farhat Vang MD Work Phone: [facility] 04-16-2021 10:15-0500 Respiratory rate 18 /min Farhat Vang MD Work Phone: [facility] 04-16-2021 10:15-0500 SaO2% (BldA) [Mass fraction] 96 % Farhat Vang MD Work Phone: [facility] 04-16-2021 10:15-0500 Systolic blood pressure 122 mm[Hg] Farhat Vang MD Work Phone: [facility] 03-23-2021 12:40-0500 Body height 160 cm Anuj Quinn MD Work Phone: [facility] [employer] 03-23-2021 12:40-0500 Body mass index (BMI) [Ratio] 44.46 kg/m2 Anuj Quinn MD Work Phone: [facility] [employer] 03-23-2021 12:40-0500 Body temperature 99.7 [degF] Anuj Quinn MD Work Phone: [facility] [employer] 03-23-2021 12:40-0500 Body weight 113.85 kg Anuj Quinn MD Work Phone: [facility] [employer] 03-23-2021 12:40-0500 Diastolic blood pressure 74 mm[Hg] Anuj Quinn MD Work Phone: [facility] [employer] 03-23-2021 12:40-0500 Heart rate 107 /min Anuj Quinn MD Work Phone: [facility] [employer] 03-23-2021 12:40-0500 Respiratory rate 16 /min Anuj Quinn MD Work Phone: [facility] [employer] 03-23-2021 12:40-0500 SaO2% (BldA) [Mass fraction] 96 % Anuj Quinn MD Work Phone: [facility] 03-23-2021 12:40-0500 Systolic blood pressure 131 mm[Hg] Anuj Quinn MD Work Phone: [facility] 01-15-2021 10:43-0500 Body height 160 cm Holland Ann MD Work Phone: [facility] 01-15-2021 10:43-0500 Body mass index (BMI) [Ratio] 42.55 kg/m2 Holland Ann MD Work Phone: [facility] 01-15-2021 10:43-0500 Body temperature 97.39 [degF] Holland Ann MD Work Phone: [facility] 01-15-2021 10:43-0500 Body weight 108.95 kg Holland Ann MD Work Phone: [facility] 01-15-2021 10:43-0500 Diastolic blood pressure 66 mm[Hg] Holland Ann MD Work Phone: [facility] 01-15-2021 10:43-0500 Heart rate 101 /min Holland Ann MD Work Phone: [facility] 01-15-2021 10:43-0500 SaO2% (BldA) [Mass fraction] 96 % Holland Ann MD Work Phone: [facility] 01-15-2021 10:43-0500 Systolic blood pressure 112 mm[Hg] Holland Ann MD Work Phone: [facility] 12-27-2020 18:15-0400 Body temperature 98.49 [degF] Wayne Springer MD Work Phone: [employer] Work Phone: 12-27-2020 18:15-0400 Diastolic blood pressure 77 mm[Hg] Wayne Springer MD Work Phone: [employer] Work Phone: Comment on above: Simultaneous filing. User may not have s een previous data. 12-27-2020 18:15-0400 Heart rate 98 /min Wayne Springer MD Work Phone: [employer] Work Phone: 12-27-2020 18:15-0400 Respiratory rate 20 /min Wayne Springer MD Work Phone: [employer] Work Phone: 12-27-2020 18:15-0400 SaO2% (BldA) [Mass fraction] 95 % Wayne Springer MD Work Phone: [employer] Work Phone: Comment on above: Simultaneous filing. User may not have s een previous data. 12-27-2020 18:15-0400 Systolic blood pressure 107 mm[Hg] Wayne Springer MD Work Phone: [employer] Work Phone: Comment on above: Simultaneous filing. User may not have s een previous data. 11-20-2020 21:07-0400 Body height 160 cm Anuj Quinn MD Work Phone: [employer] Work Phone: 11-20-2020 21:07-0400 Body mass index (BMI) [Ratio] 38.62 kg/m2 Anuj Quinn MD Work Phone: [employer] Work Phone: 11-20-2020 21:07-0400 Body temperature 98.6 [degF] Anuj Quinn MD Work Phone: [employer] Work Phone: 11-20-2020 21:07-0400 Body weight 98.88 kg Anuj Quinn MD Work Phone: [employer] Work Phone: 11-20-2020 21:07-0400 Diastolic blood pressure 65 mm[Hg] Anuj Quinn MD Work Phone: [employer] Work Phone: 11-20-2020 21:07-0400 Heart rate 84 /min Anuj Quinn MD Work Phone: [employer] Work Phone: 11-20-2020 21:07-0400 Respiratory rate 16 /min Anuj Quinn MD Work Phone: [employer] Work Phone: 11-20-2020 21:07-0400 SaO2% (BldA) [Mass fraction] 97 % Anuj Quinn MD Work Phone: [employer] Work Phone: 11-20-2020 21:07-0400 Systolic blood pressure 113 mm[Hg] Anuj Quinn MD Work Phone: [employer] Work Phone: 11-07-2020 16:28-0400 Body height 160 cm Nicholas Roger MD Work Phone: [employer] Work Phone: 11-07-2020 16:28-0400 Body mass index (BMI) [Ratio] 38.26 kg/m2 Nicholas Roger MD Work Phone: [employer] Work Phone: 11-07-2020 16:28-0400 Body temperature 98.8 [degF] Nicholas Roger MD Work Phone: [employer] Work Phone: 11-07-2020 16:28-0400 Body weight 97.98 kg Nicholas Roger MD Work Phone: [employer] Work Phone: 11-07-2020 16:28-0400 Diastolic blood pressure 71 mm[Hg] Nicholas Roger MD Work Phone: [employer] Work Phone: 11-07-2020 16:28-0400 Heart rate 98 /min Nicholas Roger MD Work Phone: [employer] Work Phone: 11-07-2020 16:28-0400 Respiratory rate 18 /min Nicholas Roger MD Work Phone: [employer] Work Phone: 11-07-2020 16:28-0400 SaO2% (BldA) [Mass fraction] 94 % Nicholas Roger MD Work Phone: [employer] Work Phone: 11-07-2020 16:28-0400 Systolic blood pressure 120 mm[Hg] Nicholas Roger MD Work Phone: [employer] Work Phone: 07-09-2020 10:52-0400 Body height 160 cm Zelda Bautista CNP Work Phone: [facility] 07-09-2020 10:52-0400 Body mass index (BMI) [Ratio] 41.27 kg/m2 Zelda Bautista CNP Work Phone: [facility] 07-09-2020 10:52-0400 Body weight 105.69 kg Zelda Bautista CNP Work Phone: [facility] 07-09-2020 10:52-0400 Diastolic blood pressure 70 mm[Hg] Zelda Bautista CNP Work Phone: [facility] 07-09-2020 10:52-0400 Heart rate 97 /min Zelda Bautista CNP Work Phone: [facility] 07-09-2020 10:52-0400 Systolic blood pressure 101 mm[Hg] Zelda Bautista CNP Work Phone: [facility] 06-24-2020 09:48-0400 Body mass index (BMI) [Ratio] 40.92 kg/m2 Anuj Quinn MD Work Phone: [employer] Work Phone: 06-24-2020 09:48-0400 Body temperature 97.9 [degF] Anuj Quinn MD Work Phone: [employer] Work Phone: 06-24-2020 09:48-0400 Body weight 104.78 kg Anuj Quinn MD Work Phone: [employer] Work Phone: 06-24-2020 09:48-0400 Diastolic blood pressure 64 mm[Hg] Anuj Quinn MD Work Phone: [employer] Work Phone: 06-24-2020 09:48-0400 Heart rate 120 /min Anuj Quinn MD Work Phone: [employer] Work Phone: 06-24-2020 09:48-0400 Respiratory rate 18 /min Anuj Quinn MD Work Phone: [employer] Work Phone: 06-24-2020 09:48-0400 SaO2% (BldA) [Mass fraction] 100 % Anuj Quinn MD Work Phone: [employer] Work Phone: 06-24-2020 09:48-0400 Systolic blood pressure 115 mm[Hg] Anuj Quinn MD Work Phone: [employer] Work Phone: 06-09-2020 10:44-0400 Body height 160 cm Lelo Gallegos MD Work Phone: [facility] 06-09-2020 10:44-0400 Body mass index (BMI) [Ratio] 41.27 kg/m2 Lelo Gallegos MD Work Phone: [facility] 06-09-2020 10:44-0400 Body weight 105.69 kg Lelo Gallegos MD Work Phone: [facility] 06-09-2020 10:44-0400 Diastolic blood pressure 75 mm[Hg] Lelo Gallegos MD Work Phone: [facility] 06-09-2020 10:44-0400 Heart rate 116 /min Lelo Gallegos MD Work Phone: [facility] 06-09-2020 10:44-0400 Systolic blood pressure 110 mm[Hg] Lelo Gallegos MD Work Phone: [facility] 03-26-2020 22:17-0500 Pulse (Heart Rate) 98 /min [facility]rie [facility] 03-26-2020 21:43-0500 BP Diastolic 66 mm[Hg] Brie [facility] [place] , [place] 03-26-2020 21:43-0500 BP Systolic 99 mm[Hg] [facility] , [place] 03-26-2020 21:43-0500 Pulse Oximetry 95 % [facility] , [place] 03-26-2020 20:50-0500 Respiratory Rate 16 /min [facility] [place] 03-26-2020 20:13-0500 BMI (Body Mass Index) 40.14 kg/m2 [facility] [place] 03-26-2020 20:13-0500 Body Temperature 98.2 [degF] [facility] [place] 03-26-2020 20:13-0500 Body weight 102.78 kg Brie Jorgensen [facility] , [place] 02-15-2020 18:22-0500 BMI (Body Mass Index) 39.75 kg/m2 Brie [facility], [place] 02-15-2020 18:22-0500 Body Temperature 98.6 [degF] [facility] [place] 02-15-2020 18:22-0500 Body weight 101.79 kg Brie Jorgensen [facility] , [place] 02-15-2020 18:22-0500 BP Diastolic 78 mm[Hg] [facility] [place] 02-15-2020 18:22-0500 BP Systolic 127 mm[Hg] Brie [facility] [place] , [place] 02-15-2020 18:22-0500 Height 160 cm Brie Moreno [facility] , [place] 02-15-2020 18:22-0500 Pulse (Heart Rate) 92 /min Brie Josh [facility], [place] 02-15-2020 18:22-0500 Pulse Oximetry 99 % Brie Moreno [facility] , [place] 02-15-2020 18:22-0500 Respiratory Rate 20 /min Brie Moreno [facility], [place] 11-20-2019 18:48-0400 BP Diastolic 75 mm[Hg] [facility], [place] 11-20-2019 18:48-0400 BP Systolic 128 mm[Hg] [facility], [place] 11-20-2019 18:48-0400 Pulse (Heart Rate) 83 /min [facility], [place] 11-20-2019 18:48-0400 Pulse Oximetry 97 % [facility], [place] 11-20-2019 18:48-0400 Respiratory Rate 18 /min [facility], [place] 11-20-2019 17:00-0400 BMI (Body Mass Index) 36.31 kg/m2 [facility], [place] 11-20-2019 17:00-0400 Body Temperature 98.4 [degF] [facility], [place] 11-20-2019 17:00-0400 Body weight 92.99 kg [facility], [place] 11-03-2019 11:37-0400 BMI (Body Mass Index) 34.47 kg/m2 [facility], [place] 11-03-2019 11:37-0400 Body Temperature 98.71 [degF] [facility], [place] 11-03-2019 11:37-0400 Body weight 88.27 kg [facility], [place] 11-03-2019 11:37-0400 BP Diastolic 66 mm[Hg] [facility], [place] 11-03-2019 11:37-0400 BP Systolic 117 mm[Hg] [facility], [place] 11-03-2019 11:37-0400 Height 160 cm Wayne [facility], [place] 11-03-2019 11:37-0400 Pulse (Heart Rate) 87 /min [place] 11-03-2019 11:37-0400 Pulse Oximetry 99 % [place] 11-03-2019 11:37-0400 Respiratory Rate 20 /min Wayne [place], [place] 08-13-2019 19:42-0400 BMI (Body Mass Index) 31 kg/m2 [facility] 08-13-2019 19:42-0400 Body Temperature 98.6 [degF] [facility] 08-13-2019 19:42-0400 Body weight 79.38 kg [facility] 08-13-2019 19:42-0400 Height 160 cm [facility] 08-13-2019 19:40-0400 BP Diastolic 60 mm[Hg] [facility] 08-13-2019 19:40-0400 BP Systolic 156 mm[Hg] [facility] 08-13-2019 19:40-0400 Pulse (Heart Rate) 138 /min [facility] 08-13-2019 19:40-0400 Pulse Oximetry 98 % [facility] 08-13-2019 19:40-0400 Respiratory Rate 16 /min [facility] 06-17-2019 12:45-0400 Respiratory Rate 18 /min [facility] 06-17-2019 07:54-0400 Body Temperature 97.81 [degF] [facility] 06-17-2019 07:54-0400 BP Diastolic 66 mm[Hg] [facility] 06-17-2019 07:54-0400 BP Systolic 99 mm[Hg] [facility] 06-17-2019 07:54-0400 Pulse (Heart Rate) 82 /min [facility] 06-17-2019 07:54-0400 Pulse Oximetry 94 % [facility] 06-14-2019 08:15-0400 BMI (Body Mass Index) 32.92 kg/m2 [facility] 06-14-2019 08:15-0400 Body weight 81.65 kg [facility] 06-14-2019 08:15-0400 Height 157.5 cm [facility] 06-14-2019 04:20-0400 Pulse (Heart Rate) 83 /min Brie [facility] [place] 06-14-2019 04:05-0400 BP Diastolic 58 mm[Hg] Brie [facility] [place] , [place] 06-14-2019 04:05-0400 BP Systolic 95 mm[Hg] [facility]rie [facility] [place] [facility] [place] 06-14-2019 04:05-0400 Pulse Oximetry 95 % [facility] [place] [facility] [place] 06-14-2019 01:12-0400 Respiratory Rate 18 /min [facility] [place] 06-14-2019 00:10-0400 Body Temperature 100.51 [degF] [facility] [place] 06-13-2019 22:00-0400 BMI (Body Mass Index) 32.31 kg/m2 [facility] [place] 06-13-2019 22:00-0400 Body weight 82.74 kg B[facility] [place] [facility] [place] 06-13-2019 22:00-0400 Height 160 cm [facility] [place] [facility] [place] 04-28-2019 19:58-0500 Body Temperature 98.8 [degF] [facility] [place] 04-28-2019 19:58-0500 BP Diastolic 70 mm[Hg] [facility] [place] , [place] 04-28-2019 19:58-0500 BP Systolic 98 mm[Hg] [facility] [place] 04-28-2019 19:58-0500 Pulse (Heart Rate) 119 /min [facility] [place] 04-28-2019 19:58-0500 Pulse Oximetry 100 % Roslyn [facility] [place] , [place] 04-28-2019 19:58-0500 Respiratory Rate 30 /min [facility] [place] 04-28-2019 19:54-0500 BMI (Body Mass Index) 30.65 kg/m2 Roslyn [facility] [place] 04-28-2019 19:54-0500 Body weight 78.47 kg [facility] [place] 04-28-2019 19:54-0500 Height 160 cm Roslyn Keating [place], [place] Encounters Encounter Date Encounter Type Care Provider Facility Start: 11-23-2023 End: 11-23-2023 ambulatory MARK ELIANA Not Available Start: 11-09-2023 End: 11-09-2023 ambulatory MARK ELIANA Not Available Start: 10-26-2023 End: 10-26-2023 ambulatory MARK ELIANA Not Available Start: 10-05-2023 End: 10-05-2023 ambulatory VIOLET Ramos [facility] Start: 10-05-2023 End: 10-05-2023 Subsequent hospital visit by physician Violet Juarez MD Work Phone: [id number] Start: 10-05-2023 End: 10-05-2023 Emergency department patient visit SENECA Richard [facility] Start: 10-05-2023 End: 10-05-2023 Emergency department patient visit LINDA LANDRYE [facility] Start: 09-12-2023 End: 09-12-2023 ambulatory MARK ELIANA Not Available Start: 08-16-2023 End: 08-16-2023 ambulatory MARK ELIANA Not Available Start: 07-26-2023 End: 07-26-2023 ambulatory BLAKE KAUFFMAN [facility] Start: 07-19-2023 End: 07-19-2023 ambulatory MARK ELIANA Not Available Start: 06-21-2023 End: 06-21-2023 ambulatory MARK ELIANA Not Available Start: 05-20-2023 End: 05-20-2023 ambulatory MARK ELIANA Not Available Start: 05-13-2023 End: 05-13-2023 Emergency department patient visit Jonathan Michelle [facility] Start: 05-13-2023 End: 05-13-2023 Emergency department patient visit Jonathan Martinez [facility] Start: 05-11-2023 End: 05-12-2023 Emergency department patient visit Zac Fields [facility] Start: 05-11-2023 End: 05-11-2023 Emergency department patient visit Zac Herreraailin [facility] Start: 05-10-2023 End: 05-10-2023 Emergency department patient visit LINDA SHEPPARD [facility] Start: 05-10-2023 End: 05-10-2023 Emergency department patient visit Chet Berumen DO Work Phone: [facility] ED Comment on above: Toothache (Primary D x); Dental decay Start: 12-27-2022 End: 12-27-2022 ambulatory MARK SALCEDOZIO [facility] Start: 11-23-2022 End: 11-23-2022 ambulatory MARK SALCEDOZIO [facility] Start: 09-04-2022 End: 09-04-2022 Emergency department patient visit Erin Lacy MD Work Phone: [facility] ED Comment on above: Sprain of right ankl e, unspecified ligament, initial encounter (Primary Dx) Start: 06-29-2022 End: 06-30-[address] MARK DUMONT . Facility: Start: 06-29-2022 End: 06-30-2022 ambulatory Linda Sheppard [facility] Start: 06-29-2022 End: 06-29-2022 Pain Management Todd Smart [facility] Start: 06-14-2022 End: 06-14-[address] MARK DUMONT . Facility: Start: 05-19-2022 End: 05-19-2022 Emergency department patient visit Erin Lacy MD Work Phone: [facility] ED Comment on above: Dry socket (Primary Dx) Start: 05-11-2022 End: 05-11-2022 Emergency department patient visit Anuj Quinn MD Work Phone: [facility] ED Comment on above: Masseter muscle spas m (Primary Dx); Other acute postprocedural pain Start: 03-30-[address] MARK DUMONT . Facili ty:[facility] Start: 03-29-2022 End: 03-29-2022 Subsequent hospital visit by physician [facility] Start: 10-12-2021 End: 10-12-2021 Emergency department patient visit Rishabh Mancini MD Work Phone: [facility] ED Comment on above: Acute bronchitis, un specified organism (Primary Dx) Start: 07-22-2021 End: 07-22-2021 Emergency department patient visit Clark Moser MD Work Phone: [facility] ED Comment on above: Acute pharyngitis, u nspecified etiology (Primary Dx) Start: 07-07-2021 ambulatory BRIE GAGE ABELINO [facility] Ambulatory Start: 06-18-2021 ambulatory [facility] Start: 06-17-2021 End: 06-18-2021 ambulatory [facility] Start: 05-15-2021 End: 05-19-2021 ambulatory [facility] Start: 05-15-2021 End: 05-15-2021 Nutrition therapy Farhat Vang MD Work Phone: [facility] Comment on above: Morbid obesity with body mass index (BMI) of 40.0 or higher (HCC) Start: 05-14-2021 End: 05-18-2021 ambulatory [facility] Start: 05-14-2021 End: 05-14-2021 Office outpatient visit 15 minutes Farhat Vang MD Work Phone: [facility] Comment on above: Anxiety and depressi on (Primary Dx); At risk for obstructive sleep apnea; Chronic bilateral low back pain without sciatica; Hepatitis C antibody positive in blood; Body mass index 40.0-44.9, adult (HCC); History of opioid abuse (HCC) Start: 04-16-2021 End: 04-20-2021 ambulatory [facility] Start: 04-16-2021 End: 04-16-2021 Initial preventive medicine new pt age 18-39yrs Farhat Vang MD Work Phone: [facility] Comment on above: Encounter for genera l adult medical examination with abnormal findings (Primary Dx); Anxiety and depression; History of opioid abuse (HCC); Morbid obesity with body mass index (BMI) of 40.0 or higher (HCC) Start: 04-16-2021 End: 04-16-2021 Patient encounter status Farhat Vang MD Work Phone: [facility] Start: 03-23-2021 End: 03-23-2021 Emergency department patient visit Anuj Quinn MD Work Phone: [facility] ED Comment on above: COVID-19 (Primary Dx ); Omphalitis in adult Start: 02-16-2021 End: 02-20-2021 ambulatory [facility] Start: 02-12-2021 End: 02-16-2021 ambulatory PHYSICIAN [facility] Start: 02-10-2021 End: 02-14-2021 ambulatory [facility] Start: 02-02-2021 End: 02-06-2021 ambulatory PHYSICIAN [facility] Start: 01-15-2021 Documentation procedure Jeimy goodman [facility] Start: 01-15-2021 End: 01-15-2021 ambulatory HOLLAND WHIPPLE SETH [facility] Start: 01-15-2021 End: 01-15-2021 Office outpatient new 30 minutes Holland Ann MD Work Phone: [facility] Comment on above: Hemorrhoids, unspeci fied hemorrhoid type Start: 12-29-2020 End: 01-02-2021 ambulatory PHYSICIAN [facility] Start: 12-27-2020 End: 12-27-2020 Emergency department patient visit Wayne Springer MD Work Phone: [facility] ED Comment on above: Viral syndrome (Prim prakash Dx) Start: 11-20-2020 End: 11-20-2020 Emergency department patient visit Anuj Quinn MD Work Phone: [facility] ED Comment on above: Strain of rhomboid m uscle, initial encounter; Chest wall muscle strain, initial encounter Start: 11-07-2020 End: 11-07-2020 Emergency department patient visit Nicholas Roger MD Work Phone: [facility] ED Comment on above: Viral URI (Primary D x) Start: 08-28-2020 End: 08-30-2020 Evaluation and management of inpatient ROSLYN [facility] Start: 08-25-2020 End: 08-25-2020 ambulatory PHYSICIAN [facility] Start: 07-29-2020 End: 08-02-2020 ambulatory PHYSICIAN [facility] Start: 07-22-2020 End: 07-26-2020 ambulatory [facility] Start: 07-22-2020 End: 07-22-2020 Telemedicine consultation with patient Lelo Gallegos MD Work Phone: [facility] Comment on above: Diet controlled gest ational diabetes mellitus (GDM) in third trimester Start: 07-10-2020 ambulatory LELO ADAMS [facility] Start: 07-09-2020 End: 07-09-2020 ambulatory ZELDA BAUTISTA [facility] Start: 07-09-2020 End: 07-09-2020 Office outpatient visit 15 minutes Zelda Bautista LAYER UP Work Phone: [facility] Comment on above: Diet controlled gest ational diabetes mellitus (GDM) in third trimester (Primary Dx) Start: 06-24-2020 End: 06-24-2020 Emergency department patient visit Anuj Quinn MD Work Phone: [facility] ED Comment on above: Acute frontal sinusi tis, recurrence not specified (Primary Dx) Start: 06-10-2020 End: 06-10-2020 Nutrition therapy Lelo Gallegos Work Phone: [facility] Comment on above: Diet controlled gest ational diabetes mellitus (GDM) in second trimester Start: 06-09-2020 End: 06-09-2020 Office outpatient new 30 minutes Roslyn Stevenson MD Work Phone: [facility]in[facility] Comment on above: Diet controlled gest ational diabetes mellitus (GDM) in second trimester Start: 05-27-2020 End: 05-31-2020 ambulatory PHYSICIAN [facility] Start: 05-21-2020 End: 05-25-2020 ambulatory PHYSICIAN [facility] Start: 03-26-2020 End: 03-26-2020 Emergency department patient visit Brie Moreno Work Phone: [facility] ED Comment on above: Atypical pneumonia ( Primary Dx) Start: 02-15-2020 End: 02-15-2020 Emergency department patient visit Brie Moreno Work Phone: [facility] ED Comment on above: Pain, dental (Primar y Dx); Acute gingivitis; Alveolar osteitis Start: 11-20-2019 End: 11-20-2019 Emergency department patient visit Anuj Quinn Work Phone: [facility] ED Comment on above: Bacterial vaginosis (Primary Dx); Trichimoniasis; Furuncle of left axilla Start: 11-03-2019 End: 11-03-2019 Emergency department patient visit Wayne Maryuri Springer Work Phone: [facility] ED Comment on above: Poison arabella (Primary Dx) Start: 08-20-2019 End: 08-21-2019 Patient encounter procedure HODA MADERA [facility] Start: 08-20-2019 End: 08-20-2019 Subsequent hospital visit by physician [facility] Start: 08-13-2019 End: 08-13-2019 Emergency department patient visit Christian Martinez Work Phone: [facility] Emergency Department Comment on above: Heroin abuse (HCC) ( Primary Dx) Start: 06-20-2019 End: 06-20-2019 Patient encounter procedure Alisa Palencia Work Phone: [facility] Comment on above: Hepatitis C virus in fection without hepatic coma, unspecified chronicity (Primary Dx) Start: 06-18-2019 End: 06-18-2019 Documentation procedure Taryn Torres [facility] Start: 06-18-2019 Follow-up encounter Taryn Cartagena [facility] Comment on above: Transition Of Care Start: 06-18-2019 End: 06-18-2019 Patient encounter procedure Taryn Stokes Torres [facility] Start: 06-14-2019 End: 06-17-2019 Evaluation and management of inpatient [facility] Work Phone: [facility] Comment on above: Elevated LFTs; IVDA (intravenous drug abuse) complicating (HCC) Start: 06-13-2019 End: 06-14-2019 Emergency department patient visit Brie Benjamin Josh Work Phone: [facility] ED Comment on above: Abdominal pain, unsp ecified abdominal location (Primary Dx); Urinary tract infection with hematuria, site unspecified; Viral hepatitis without hepatic coma, unspecified chronicity, unspecified viral hepatitis type; Polysubstance abuse (HCC); Hyperbilirubinemia Start: 04-28-2019 End: 04-28-2019 Emergency department patient visit Roslyn Keating Work Phone: [facility] ED Comment on above: Accidental overdose of heroin, initial encounter (HCC) (Primary Dx) Start: 12-20-2016 End: 01-02-2020 Cancer cervix - screening done Lelo Gallegos MD Work Phone: [facility] Start: 12-20-2016 End: 01-02-2020 Encounter for gynecological examination (general) (routine) without abnormal findings Jeimy Tan [employer] [facility] Procedures Date Procedure Procedure Detail Performing [...] 06-14-2019 Drugs of abuse urine screening test Inrda Handylivan Work Phone: Start: 06-14-2019 Urinalysis Carli [...] Shingles Vaccine (1 of 2) [facility] jace- [place], [place] Start: 12-29-2025 Screening for malignant neoplasm of cervix Pap Smear [facility] Start: 10-31-2024 Screening for malignant neoplasm of cervix Pap Smear [facility] Start: 12-30-2023 Screening for malignant neoplasm of cervix [facility] Start: 09-06-2024 Respiratory Syncytial Virus (RSV) or age 60 yrs+ (1 - Risk 1-dose series) Respiratory Syncytial Virus (RSV) or age 60 yrs+ (1 - Risk 1-dose series) [facility] Start: 11-10-2023 End: 11-10-2023 Patient encounter procedure 11/10/2023 10:00 AM EDT Routine [facility] [address] [place] [address] [facility] Start: 10-27-2023 End: 10-27-2023 Patient encounter procedure 10/27/2023 10:00 AM EDT Routine [facility] [address] [place] [address] [facility] Start: 10-13-2023 End: 10-13-2023 Patient encounter procedure 10/13/2023 10:00 AM EDT [facility] [address] [place] [address] Return in about 2 weeks (around 10/04/2023) for twins, dopplers, growth, transvag. [facility] Comment on above: Return in about 2 weeks (around ) for twins, dopplers, growth, transvag. Start: 10-07-2023 Tdap Vaccine during Tdap Vaccine during [facility] Start: 10-06-2023 Influenza vaccination Flu vaccine (#1) [facility] Start: 10-31-2022 Screening for malignant neoplasm of cervix [facility] [employer] Work Phone: Start: 10-05-2022 Influenza vaccination Flu vaccine (#1) [facility] Start: 04-16-2022 History and physical examination, annual for health maintenance Wellness Visit [facility] Start: 02-13-2022 Depression Remission Assessment (PHQ9) Depression Remission Assessment (PHQ9) [facility] Start: 12-29-2021 History and physical examination, annual for health maintenance Wellness Visit [facility] Start: 11-12-2021 End: 11-12-2021 Patient encounter procedure 11/12/2021 Office Visit Primary Care Farhat Vang MD [address] [place] [address] [facility] Start: 11-05-2021 Influenza vaccination [facility] Start: 10-05-2021 Influenza vaccination Flu vaccine (#1) [facility] Start: 06-26-2021 End: 06-26-2021 Nutrition therapy 06/26/2021 Nutrition Nutrition Farhat Vang MD [address] [facility] [address] [facility] [address] [place] [address] [facility] Start: 05-15-2021 End: 05-15-2021 Nutrition therapy 05/15/2021 Nutrition Nutrition Angelito Harvey RD [facility] Start: 05-14-2021 End: 05-14-2021 Patient encounter procedure 05/14/2021 Office Visit Primary Care Farhat Vang MD [address] [facility] [address] [place] [address] [facility] Start: 03-17-2021 Depression screening using PHQ-9 (Patient Health Questionnaire 9) score Depression Screening (PHQ9) [facility] Start: 01-15-2021 Depression Remission Assessment (PHQ9) Depression Remission Assessment (PHQ9) [facility] Start: 01-09-2021 Hemoglobin A1c measurement A1C [facility] Start: 12-09-2020 HbA1c (Bld) [Mass fraction] A1C [facility] Start: 12-09-2020 Hemoglobin A1c measurement A1C [facility] Start: 11-05-2020 Influenza vaccination [facility] Start: 10-31-2020 History and physical examination, annual for health maintenance Wellness Visit [facility] Start: 08-28-2020 End: 08-28-2020 Admission to same day surgery center 08/28/2020 Surgery Obstetrics Roslyn Stevenson MD [facility] [address] [place] [address] [phone] SECTION [facility] Labor & Delivery Comment on above: SECTION Start: 08-28-2020 Subsequent hospital visit by physician 08/28/2020 Hospital Encounter Obstetrics Roslyn Stevenson MD [facility] [place] [address] [phone] [facility] Labor & Delivery Start: 08-25-2020 End: 08-25-2020 Office Visit 08/25/2020 Office Visit Endocrinology Zelda Bautista, LAYER UP [address] [place] [address] [phone] [facility] Endocrinology Physicians Start: 07-31-2020 End: 07-31-2020 Office Visit 07/31/2020 Office Visit Endocrinology Benito Krueger CNP [address] [place] [address] [phone] [facility] Endocrinology Physicians Start: 07-29-2020 End: 07-29-2020 Patient encounter procedure 07/29/2020 Routine Obstetrics and Gynecology Regla Dias CNM [address] [place] [phone] [facility] [employer] - An Affiliate of [facility] Start: 07-22-2020 End: 07-22-2020 Telemedicine consultation with patient 07/22/2020 Telemedicine Nutrition Lelo Gallegos MD [address] [place] [address] [phone] [facility] Nutritional Services Start: 07-17-2020 End: 07-17-2020 Patient encounter procedure 07/17/2020 Routine Obstetrics and Gynecology Yvonne Santos MD [address] [place] [phone] [facility] [employer] - An Affiliate of [facility] Start: 07-09-2020 End: 07-09-2020 Office Visit 07/09/2020 Office Visit Endocrinology Zelda Bautista, LAYER UP [address] [place] [address] [phone] [facility] Endocrinology Physicians Start: 07-04-2020 End: 07-04-2020 Patient encounter procedure 07/04/2020 Routine Obstetrics and Gynecology Radha Pantoja MD [address] [place] [phone] [facility] [employer] - An Affiliate of [facility] Start: 06-26-2020 End: 06-26-2020 Patient encounter procedure 06/26/2020 Office Visit Endocrinology Janie Chen PA-C [address] [place] [address] [phone] [facility] Endocrinology Physicians Start: 06-24-2020 End: 06-24-2020 Nutrition [facility] Nutrition[facility] Start: 06-19-2020 End: 06-19-2020 Routine 06/19/2020 Routine Obstetrics and Gynecology Larissa, Regla Arriaga CNM [address] [place] [phone] [facility] [employer] - An Affiliate of [facility] Start: 05-17-2020 Depression screening using PHQ-9 (Patient Health Questionnaire 9) score Depression Screening (PHQ9) [facility] Start: 2020 Screening for malignant neoplasm of cervix [facility] Start: 02-26-2020 End: 02-26-2020 Initial 02/26/2020 Initial Obstetrics and Gynecology Jai Huerta MD [address] [place], [place] [phone] [facility] [employer] Start: 11-06-2019 Influenza vaccination [facility], [place] Start: 11-06-2019 Influenza vaccination given [facility] Start: 08-06-2019 Screening for malignant neoplasm of cervix Pap Smear [facility] Start: 06-20-2019 End: 06-20-2019 Office Visit 06/20/2019 Office Visit Transition of Care Alisa Palencia, LAYER UP [address] [facility] [address] [place] [address] [phone] [facility] Start: 11-05-2018 Influenza vaccination Flu vaccine (#1) [place], [place] Start: 11-05-2018 Influenza vaccination given Sequential Influenza Vaccine (#1) [facility] Start: 03-21-2015 Cervical cancer screen Cervical cancer screen [place], [place] Start: 03-21-2015 Screening for malignant neoplasm of cervix Cervical cancer screen [place] Start: 04-05-2014 Screening for malignant neoplasm of cervix Pap smear [facility] Start: 2009 DTaP/Tdap/Td vaccine (1 - Tdap) DTaP/Tdap/Td vaccine (1 - Tdap) [place], [place] Start: 2009 Hepatitis B vaccine (1 of 3 - Risk 3-dose series) Hepatitis B vaccine (1 of 3 - Risk 3-dose series) [facility] Work Phone: Start: 2008 Hepatitis C screening Hepatitis C screen [facility] Start: 2006 COVID-19 Vaccine (1) COVID-19 Vaccine (1) [facility] Start: 2005 HIV screen HIV screen [place], [place] Start: 2005 HIV screening HIV screen [facility] Start: 2002 COVID-19 Vaccine (1) COVID-19 Vaccine (1) [facility] Start: 2002 Depression Monitoring Depression Monitoring [facility] Start: 2001 DTaP/Tdap/Td vaccine (1 - Tdap) DTaP/Tdap/Td vaccine (1 - Tdap) [place] Start: 2001 DTaP/Tdap/Td vaccine (5 - Tdap) DTaP/Tdap/Td vaccine (5 - Tdap) [facility] Start: 2000 Albumin DL <= 20 mg/L (U) [Mass/Vol] Urine Microalbumin [facility] Start: 2000 Diabetic foot examination Foot Exam [facility] Start: 2000 Microalbumin measurement, urine, quantitative Urine Microalbumin [facility] Start: 2000 Ophthalmic examination and evaluation Ophthalmology Exam [facility] Start: 1996 Pneumococcal 0-64 years Vaccine (1 of 1 - PPSV23) Pneumococcal 0-64 years Vaccine (1 of 1 - PPSV23) [place], [place] Start: 1996 Pneumococcal Vaccine: Ped or At-Risk (1 of 2 - PPSV23) Pneumococcal Vaccine: Ped or At-Risk (1 of 2 - PPSV23) [facility] Start: 1995 COVID-19 Vaccine (1) COVID-19 Vaccine (1) [facility] Start: 1993 History and physical examination, annual for health maintenance Wellness Visit [facility] Start: 1991 Varicella vaccine (1 of 2 - 2-dose childhood series) Varicella vaccine (1 of 2 - 2-dose childhood series) [facility] Start: 1990 COVID-19 Vaccine (#1) COVID-19 Vaccine (#1) [facility] Start: 1990 Hepatitis B vaccine (1 of 3 - 3-dose series) Hepatitis B vaccine (1 of 3 - 3-dose series) [facility] Start: 1990 Hepatitis C screening Hepatitis C screen [facility] Start: 1990 Tetanus vaccination Tetanus: Every 10yrs [facility] Anti smooth muscle antibody IgA level Anti-Smooth Muscle Antibody Lab Add-On 06/15/2019 1:50 PM EDT [facility] Antimitochondrial antibody titer Antimitochondrial Antibody Lab Add-On 06/15/2019 1:50 PM EDT [facility] End: 11-20-2019 C.trachomatis N.gonorrhoeae DNA, Urine C.trachomatis N.gonorrhoeae DNA, Urine Microbiology STAT One Time for 1 Occurrences starting 11/20/2019 until 11/20/2019 [place] Comment on above: One Time for 1 Occurrences starting 11/05 until 11/20/2019 C.trachomatis N.gonorrhoeae DNA, Urine C.trachomatis N.gonorrhoeae DNA, Urine Microbiology Stat [employer] Label print 11/20/2019 5:55 PM EDT [place] End: 03-26-2020 Covid-19 Ambulatory Covid-19 Ambulatory Lab Routine Once for 1 Occurrences starting 03/26/2020 until 03/26/2020 [facility] [place] Comment on above: Once for 1 Occurrences starting 03/26/19 21 until 03/26/2020 Covid-19 Ambulatory Covid-19 Amb ulatory Lab Routine 03/26/2020 8:44 PM EST [facility] End: 06-13-2019 Culture, Blood 1 Culture, Blood 1 Microbiology STAT One Time for 1 Occurrences starting 06/13/2019 until 06/13/2019 [place] Comment on above: One Time for 1 Occurrences starting 10/2019 until 06/13/2019 Culture, Blood 1 [place], [place] End: 03-23-2021 Culture, Wound [facility] Work Phone: Comment on above: One Time for 1 Occurrences starting 03/07 until 03/23/2021 Cytomegalovirus DNA assay CMV DN A Detection and Quant, Blood Lab Routine 06/15/2019 1:50 PM EDT [facility] Kirsten-Hazel Virus P CR, Quantitative Kirsten-Hazel Virus PCR, Quantitative Lab Routine 06/15/2019 1:50 PM EDT [facility] End: 04-16-2022 Hemoglobin A1c/Hemoglobin.total in Blood Hemoglobin A1c Lab Routine Encounter for general adult medical examination with abnormal findings 1 Occurrences starting 04/16/2021 until 04/16/2022 [facility] Work Phone: Comment on above: 1 Occurrences starting 04/16/2021 until 04/16/2022 Hemoglobin A1c/Hemoglobin.total in Blood Hemoglobin A1c Lab Routine Encounter for general adult medical examination with abnormal findings 04/16/2021 10:58 AM [facility] End: 04-16-2022 Hepatitis C antibody measurement Hepatitis C Antibody Lab Routine Encounter for general adult medical examination with abnormal findings 1 Occurrences starting 04/16/2021 until 04/16/2022 [facility] Comment on above: 1 Occurrences starting 04/16/2021 until 04/16/2022 Hepatitis C antibody measurement Hepatitis C Antibody Lab Routine Encounter for general adult medical examination with abnormal findings 04/16/2021 10:58 AM [facility] MDI Treatment MDI Treatment Re spiratory Care Routine Every 6hr As Needed until discontinued starting 03/26/2020 [place] Comment on above: Every 6hr As Needed until discontinued s tarting 03/26/2020 Nonrebreather mask oxygen Nonreb reather mask oxygen Respiratory Care Routine As Needed until discontinued starting 10/05/2023 ALEXANDRA PANIAGUA [facility] Comment on above: As Needed until discontinued starting Nuclear Ab IF (S) [Titer] KENIA La b Add-On 06/15/2019 1:50 PM EDT [facility] End: 06-24-2020 Urinalysis, reflex to microscopic Urinalysis, reflex to microscopic Lab STAT One Time for 1 Occurrences starting 06/24/2020 until 06/24/2020 [employer] Work Phone: Comment on above: One Time for 1 Occurrences starting 06/06 until 06/24/2020 End: 05-14-2022 XR Lumbar Spine Complete AP/Lat w Obls XR Lumbar Spine Complete AP/Lat w Obls Imaging Routine Chronic bilateral low back pain without sciatica 1 Occurrences starting 05/14/2021 until 05/14/2022 [employer] Work Phone: Comment on above: 1 Occurrences starting 05/14/2021 until 05/14/2022 Payers Date Payer Category Payer Medicaid [employer] [id number] 2021-Present [phone] [address] [place] [address] [id number]. 7.3.295586.315 2021 Unknown [id number] 1.2.840.291197.1.13.239.2. 7.3.042236.315 2017 Medicaid [id number] 1.2.840.527344.1.13.385.2. 7.3.507531.315 2012 Medicaid [id number] 1.2.840.325853.1.13.239.2. 7.3.774948.315 2012 Medicaid [id number] 2008 Private Health Insurance [id number] 1990 Unknown [id number] 2.16.840.1.314006.3.579.2. 173 1990 Unknown [id number] 2.16.840.1.240169.3.579.2. 900 1990 Unknown [id number] 2.16.840.1.845517.3.579.2. 900 1990 Unknown [id number] 2.16.840.1.300090.3.579.2. 900 1990 Unknown [id number] 2.16.840.1.816260.3.579.2. 900 1990 Unknown [id number] 2.16.840.1.025780.3.579.2. 900 1990 Unknown [id number] 2.16.840.1.268637.3.579.2. 900 1990 Unknown [id number] 2.16.840.1.187008.3.579.2. 900 1990 Unknown [id number] 2.16.840.1.018610.3.579.2. 903 1990 Unknown [id number] 2.16.840.1.743414.3.579.2. 903 1990 Unknown [id number] 2.16.840.1.395339.3.579.2. 903 1990 Unknown [id number] 2.16.840.1.411129.3.579.2. 903 1990 Unknown [id number] 2.16.840.1.339152.3.579.2. 903 1990 Unknown [id number] 2.16.840.1.847606.3.579.2. 903 1990 Unknown [id number] 2.16.840.1.831258.3.579.2. 903 1990 Unknown [id number] 2.16.840.1.916142.3.579.2. 903 1990 Unknown [id number] 2.16.840.1.507930.3.579.2. 903 1990 Unknown [id number] 2.16.840.1.112269.3.579.2. 903 1990 Unknown [id number] 2.16.840.1.413016.3.579.2. 903 1990 Unknown [id number] 2.16.840.1.430300.3.579.2. 903 1990 Unknown [id number] 2.16.840.1.577330.3.579.2. 903 1990 Unknown [id number] 2.16.840.1.104843.3.579.2. 903 1990 Unknown [id number] 2.16.840.1.613273.3.579.2. 903 1990 Unknown [id number] 2.16.840.1.926837.3.579.2. 593 1990 Unknown [id number] 2.16.840.1.251125.3.579.2. 593 1990 Unknown [id number] 2.16.840.1.587304.3.579.2. 593 1990 Unknown [id number] 2.16.840.1.809932.3.579.2. 593 1990 Unknown [id number] 2.16.840.1.902940.3.579.2. 727 1990 Unknown [id number] 2.16.840.1.704326.3.579.2. 727 1990 Unknown [id number] 2.16.840.1.454319.3.579.2. 727 1990 Unknown [id number] 2.16.840.1.827417.3.579.2. 174 1990 Unknown [id number] 2.16.840.1.965676.3.579.2. 174 1990 Unknown [id number] 2.16.840.1.102337.3.579.2. 174 1990 Unknown [id number] 2.16.840.1.822519.3.579.2. 174 1990 Unknown [id number] 2.16.840.1.127058.3.579.2. 174 1990 Unknown [id number] 2.16.840.1.045331.3.579.2. 9 1990 Unknown [id number] 2.16.840.1.758880.3.579.2. 9 1990 Unknown [id number] 2.16.840.1.022335.3.579.2. 9 1990 Unknown [id number] 2.16.840.1.667754.3.579.2. 9 1990 Unknown [id number] 2.16.840.1.153575.3.579.2. 9 1990 Unknown [id number] 2.16.840.1.062500.3.579.2. 9 1990 Unknown [id number] 2.16.840.1.057809.3.579.2. 9 1990 Unknown [id number] 2.16.840.1.687346.3.579.2. 9 1990 Unknown [id number] 2.16.840.1.978011.3.579.2. 175 1990 Unknown [id number] 2.16.840.1.049141.3.579.2. 175 1990 Unknown [id number] 2.16.840.1.459106.3.579.2. 175 1959 Unknown [id number] Social History Date Type Detail Facility Start: 04-28-2019 End: 11-03-2019 Tobacco smoking status UTIS Current every day smoker [place], [place] End: 02-15-2020 History of tobacco use Cigarette Smoker [place] Start: 04-28-2019 End: 10-05-2023 Cigarettes smoked current (pack per day) - Reported [employer] Start: 04-28-2019 Alcohol intake Current drinke r of alcohol (finding) [facility] Start: 1990 Sex Assigned At Not on file [facility] Start: 06-13-2019 End: 10-05-2023 Alcohol intake Ex-drinker (finding) [facility] Y Exposure to SARS-CoV -2 (event) Unable to assess [facility] [facility] Start: 05-18-2019 End: 04-16-2021 History SDOH Alcohol Frequency 3 [facility] Start: 05-18-2019 End: 07-16-2020 History SDOH Alcohol Std Drinks 5 [facility] Start: 05-04-2021 End: 05-19-2022 Exposure to SARS-CoV-2 (event) Not sure [facility] Start: 11-20-2019 End: 07-26-2023 Tobacco use and exposure [facility] Start: 06-09-2020 End: 07-26-2023 Tobacco smoking status NHIS Former smoker [facility] End: 02-15-2020 History of tobacco use Current smoker [facility] Start: 12-09-2019 [facility] Start: 04-16-2021 History SDOH Social Connections Get Together 4 [facility] Start: 04-16-2021 History SDOH Food Worry 1 [facility] Start: 09-04-2022 End: 10-05-2023 Sex Assigned At Female [facility] Start: 09-04-2022 History SDOH Alcohol Frequency 2 [employer] How often to you hav e a drink containing alcohol? Monthly or less [employer] Average Number of Drinks Not on file [employer] How often to you hav e a drink containing alcohol? Never [employer] Medical Equipment Procedure Code Equipment Code Equipment Origin al Text Equipment Identifier Dates Use to check BG QID Dx O24.14 . [id number] Start: 06-09-2020 Use as instructe d to check BG QID Dx O24.14 . [id number] Start: 06-09-2020 End: 06-11-2020 use to test BLOO D SUGAR FOUR TIMES DAILY [id number] Start: 06-09-2020 Goals Date Patient Goal Desired Activity /State Functional Status Date Assessment Result Facility 05-13-2023 Functional Status N/A [facility] 05-11-2023 Functional Status N/A [facility] 06-29-2022 Functional Status N/A [facility] Clinical Notes 06-09-2020 to 05-13-2023 Note [...] Follow these instructions at home: Medicines Take mbzp-lso-goqkthw and prescription medicines only as told by [...] provider. Document Revised: 04/30/2021 Document Reviewed: 04/30/2021 [employer] Patient Education 2022 [email or web address]. Follow Up Care 05/13/2023 11:20:07 With:[employer] [facility] Address: [address] [place], [place] [id number] [facility] (1) When:05/16/2023 12:45:32 Comments:Dentistry follow-up [facility] 05-12-2023 Hospital Discharg e instructions Patient Education 05/11/2023 23:33:09 Dental Pain, Eiwy-wm-Bmaq Dental Pain Dental pain is often a [...] Follow these instructions at home: Medicines Take jgeg-ovj-srckbuu and prescription medicines only as told by [...] damage to the area. Brushing your teeth [place] your teeth twice a day using a [...] only when you eat or drink. Take nazz-cyr-jzyvufm and prescription medicines only as told by your dentist. Watch your dental pain for any changes. Let your dentist know if symptoms get worse. This information is not intended to replace advice given to you by your health care provider. Make sure you discuss any questions you have with your health care provider. Document Revised: 11/26/2020 Document Reviewed: 11/26/2020 [employer] Patient Education 2022 [email or web address]. Follow Up Care 05/11/2023 21:26:40 With:Linda Sheppard DO Address: [address] [place] [address], [address] [address] When:05/14/[address] [facility] 05-11-2023 Evaluation + Plan note Extrac roxann from: Title:ED Note Author:Violet Walters PA-C ate:05/11/23 1. Pain, dental (K08.89: Oth er specified disorders of teeth and supporting structures) Ordered: amoxicillin-clavulanate, = 1 tab(s), Oral, q12hr, X 7 day(s), # 14 tab(s), Refills(s) 0, Pharmacy: [facility], 160, cm, 05/11/23 21:53:00 EST, Height/Length Dosing, 110, kg, 05/11/23 21:53:00 EST, Weight Dosing chlorhexidine topical, 0.018 gm, 15 mL, Oral, BID, 480 mL, Refill(s) 0, (swish and spit; do not swallow), [facility], 160, cm, 05/11/23 21:53:00 EST, Height/Length Dosing, 110, kg, 05/11/23 21:53:00 EST, Weight Dosing 2. Infected dental caries (K02.9: Dental caries, unspecified) Ordered: amoxicillin-clavulanate, = 1 tab(s), Oral, q12hr, X 7 day(s), # 14 tab(s), Refills(s) 0, Pharmacy: [facility], 160, cm, 05/11/23 21:53:00 EST, Height/Length Dosing, 110, kg, 05/11/23 21:53:00 EST, Weight Dosing chlorhexidine topical, 0.018 gm, 15 mL, Oral, BID, 480 mL, Refill(s) 0, (swish and spit; do not swallow), [facility], 160, cm, 05/11/23 21:53:00 EST, Height/Length Dosing, 110, kg, 05/11/23 21:53:00 EST, Weight Dosing 3. First trimester (Z34.91: Encounter for supervision of normal , unspecified, first trimester) Periapical abscess without sinus (K04.7: Periapical abscess without sinus) Orders: ketorolac, 30 mg = 1 mL, Injection, IntraMuscular, Once, Stop date 05/11/23 23:31:00 EST, STAT, Start date 05/11/23 23:31:00 EST, 05/11/23 23:31:[address] [facility]03-05-2024 Hospital Discharge instructions* Discharge Instructions* Chet Berumen DO - 05/10/2023 11:50 AM EST Use amoxicillin as prescribed. Use Tylenol as needed for pain. Follow-up with dentist as soon as possible. * Attachments The following attachments cannot be sent through Care Everywhere. * Tooth Decay (Cambodian) * Tooth and Gum Pain (Cambodian) [facility] History of Present illness Narrative* Angelito [...] Current Outpatient Medications Ordered in [facility] Medication Sig Dispense Refill baclofen (LIORESAL) 10 [...] mouth daily . No current [facility]-ordered facility-administered medications on file. Lab Results Component [...] - 6-7 PM- crock pot meals- goulash; Croatian chicken; spicy rice with chicken and beans; [...] calorie goals/day. Estimated Nutritional Needs: Calorie Needs: 7808-7449 kcals/day (MSJ x 1.3AF -500-1000 to promote gradual weight loss) Patient/Family Education: Learner: family and patient Readiness: action - ready to set action plan and implement goals Barriers to Learning: none Method: explanation and handout Response: verbalizes understanding Expected Adherence: good Education Materials Provided: Healthy Meal Planning handout ([facility]), Goal Sheet, 1,645-Snvhoqz5-Pdf Menus (NCM), 1,800-Calorie 5-Day Menus (NCM), Weight Loss Tips (NCM) Monitoring/Evaluation: Lab results, weight, food recall, meal planning, goal achievement, physical activity, medication management. This documentation has been sent to the referring healthcare provider. Angelito Harvey RDN, ZAHRA Personal Office documented in this [id number] History of Present illness Narrative* Farhat Vang [...] C hepatitis virus. Patient was referred to university relations recruiter and the recommendation was made for a [...] improve, for Follow Up. documented in this [id number] History of Present illness Narrative* Farhat Vang [...] current medications that are prescribed by her seed specialist. She has 4 children at home [...] Not difficult at all documented in this [id number] History of Present illness Narrative* Holland Ann [...] Procedure: SECTION; Surgeon: Roslyn Stevenson MD; Location: [facility]; Service: OBGYN SECTION, LOW [...] Friends and Family: Not on file Attends [employer] Services: Not on file Active Member of [...] Report 12/29/2020 Final Value:Gynecologic Cytology Report Case: [id number] Authorizing Provider: Germania Valentino, Collected: 12/29/2020 11:09 AM LAYER UP Ordering Location: [facility] [employer]URN[employer]URE ASSEMBLER - An Received: 12/30/2020 12:03 PM [facility] First Screen: [...] from every slide are reviewed by a reject opener and filler. Specimen processing and Primary Screening performed at: [facility] - [address] [place] [id number] HPV Results 12/29/2020 Final Value:This result contains [...] physician. Holland Ann MD documented in this [id number] History of Present illness Narrative* Jeimy Tan LPN - 01/15/2021 11:17 AM EST This nurse acted as a commercial real estate appraiser for a rectal exam by Dr. Ann for Tia. Tia verbalized consent to be examined, appeared comfortable and tolerated the exam well. documented in this [id number] History of Present illness Narrative* Neris Ulloa, [...] no 2) I will try yoga on [place] - yes but didn't feel comfortable doing [...] oatmeal packet. Snack celery + PB or Australian yogurt or green peppers. Lunch - will be light if full from snack and may have an early dinner. Dinner - pork chops, steamed vegetables. Snack - Australian yogurt or vegetables or watermelon. Beverages - [...] Current Outpatient Medications Ordered in [facility] Medication Sig Dispense Refill blood sugar diagnostic [...] BLOOD SUGAR FOUR TIMES DAILY No current [facility]-ordered facility-administered medications on file. SMBG Results: [id number]. [...] the referring healthcare provider. documented in this [id number] Instructions* Patient Instructions* Zelda Bautista CNP - [...] to renew/prescribe testing supplies. documented in this [id number] History of Present illness Narrative* Zelda Bautista [...] visit with us. The patient did bring [employer] SYSTEM[employer] sugar meter with her for download today however there is not many readings on it. She states she started a new job at [employer] and does noise get breaks to check [...] 4. Patient to cont. To follow with hoop coiler 5. Patient will require 2 hour 75 gram OGTT 8-12 weeks after delivery. 6. Follow-up in 2 weeks. Risks and potential complications of diabetes were reviewed with the patient. Electronically signed by Zelda MARIN 07/09/2110:03 AM documented in this [id number] History of Present illness Narrative* Lelo Gallegos [...] month during . While awaiting appointment with hoop coiler, patient provided with details of GDM diet, [...] 1 hour post prandial. 4. Referral to hoop coiler 5. Patient will require 2 hour 75 gram OGTT 8-12 weeks after delivery. 6. Follow-up in 2 weeks. Risks and potential complications of diabetes were reviewed with the patient. documented in this encounterOhioHealthEvaluation + Plan note No data available for this section [facility] Diagnosis Diet controlled gestational diabetes mellitus (GDM) in second trimester [facility]* Diagnosis Acute frontal sinusitis, recurrence not specified- Primary documented in this encounter [employer] Phone: evaluation note* Diagnosis Diet controlled gestational diabetes mellitus (GDM) in third trimester- Primary [facility] Diagnosis Diet controlled gestational diabetes mellitus (GDM) in third trimester [facility] Diagnosis Viral URI- Primary Acute upper respiratory infections of unspecified site documented in this encounter [employer] Phone: evalyypumo note* Diagnosis Strain of rhomboid muscle, initial encounter Chest wall muscle strain, initial encounter documented in this encounter [employer] Phone: evalfcttil note* Diagnosis Viral syndrome- Primary Unspecified viral infection, in conditions classified elsewhere and of unspecified site documented in this encounter [employer] Phone: evaluation note* Diagnosis Hemorrhoids, unspecified hemorrhoid type [facility] Diagnosis COVID-19- Primary Omphalitis in adult Unspecified local infection of skin and subcutaneous tissue documented in this encounter [employer] Phone: evaluation note* Diagnosis Encounter for general adult medical examination with abnormal findings- Primary Anxiety and depression History of opioid abuse (HCC) Morbid obesity with body mass index (BMI) of 40.0 or higher (HCC) documented [facility]* Diagnosis Anxiety and depression- Primary At risk for obstructive sleep apnea Chronic bilateral low back pain without sciatica Hepatitis C antibody positive in blood Body mass index 40.0-44.9, adult (HCC) Body Mass Index 40.0-44.9, adult History of opioid abuse (HCC) documented [facility]* Diagnosis Morbid obesity with body mass index (BMI) of 40.0 or higher (HCC) [facility]* Diagnosis Acute pharyngitis, unspecified etiology- Primary documented in this encounter [employer] Phone: evaluation note* Diagnosis Acute bronchitis, unspecified organism- Primary documented in this encounter [employer] Phone: evalbakrju note* Diagnosis Masseter muscle spasm- Primary Spasm of muscle Other acute postprocedural pain documented in this encounter [employer] Phone: evaluation note* Diagnosis Dry socket- Primary Alveolitis of jaw documented in this encounter [facility]* Diagnosis Sprain of right ankle, unspecified ligament, initial encounter- Primary documented in this encounter [facility]* Diagnosis Toothache- Primary Unspecified disorder of the teeth and supporting structures Dental decay Unspecified dental caries documented in this encounter [facility]* Diagnosis 26 weeks gestation of - Primary state, incidental [facility]* Instructions* Anuj Quinn MD - 06/24/2020 Although many kwvc-azw-tlxqtqj cough cold flu sinus medications are safe in , I would contact her METAL FURNITURE ASSEMBLER office in [facility] to verify what your METAL FURNITURE ASSEMBLER group feels a safe in . Tylenol [...] be sent through Care Everywhere. * Sinusitis (Cambodian) [facility] this [facility]: Hospital Discharge instructions* Attachments The following attachments cannot be sent through Care Everywhere. * URI (Upper Respiratory Infection) (Cambodian) documented in this [facility] Phone: Hospital Discharge instructions* Attachments The following attachments cannot be sent through Care Everywhere. * Muscle Strain (Cambodian) [facility] Phone: Hospital Discharge instructions* Attachments The following attachments cannot be sent through Care Everywhere. * Viral Infections (Cambodian) documented in this [facility] Phone: Hospital Discharge instructions* Attachments The following attachments cannot be sent through Care Everywhere. * Coronavirus Disease (COVID-19): General Info (Cambodian) * Coronavirus Disease (COVID-19): Isolation (Cambodian) * Piercing: Infection (Cambodian) documented in this [facility] Phone: spital Discharge instructions* Instructions* Clark Moser MD - 07/22/2021 Use Tylenol or Motrin for pain. Take amoxicillin twice a day. Amoxicillin treats strep throat, ear infections, bronchitis and pneumonia. Call primary care doctor for close follow-up. * Attachments The following attachments cannot be sent through Care Everywhere. * Sore Throat (Cambodian) [facility] this [facility] Phone: spital Discharge instructions* Attachments The following attachments cannot be sent through Care Everywhere. * Bronchitis (Cambodian) documented in this [facility] [employer] Phone: [facility] Discharge instructions* Attachments The following attachments cannot be sent through Care Everywhere. * Cramp: Muscle (Cambodian) * Pain Post-Surgery: Acute (Cambodian) documented in this [facility] Phone: [facility] Discharge instructions* Attachments The following attachments cannot be sent through Care Everywhere. * Star Tooth Extraction: Post-op (Cambodian) documented in this [facility] [employer] Phone: [facility] Discharge instructions No data available for this section [facility] Discharge instructions* Attachments The following attachments cannot be sent through Care Everywhere. * Ankle Sprain (Cambodian) [facility] this [facility]charge [facility]* Attachments The following attachments cannot be sent through Care Everywhere. * : Weeks 26 to 30 (Cambodian) * : When to Call (After 20 Weeks): General Info (Cambodian) * : Twins: General Info (Cambodian) documented in this [facility] note No data available for this section [facility] for referral (narrative)* Consultation (Routine) Status Reason Specialty Diagnoses / Procedures Referred By Contact Referred To Contact Authorized Nutrition Diagnoses Diet controlled gestational diabetes mellitus (GDM) in second trimester Lelo Gallegos MD [address] [place] [phone] [facility] Services [address] [place] [address] [facility] for visit Narrative* Consultation (Routine) - Pending Review Specialty Diagnoses / Procedures Referred By Contac t Referred To Contact Gastroenterology Diagnoses Hemorrhoids, unspecified hemorrhoid type Germania Galaviz, LAYER UP [address] [place] [address] Holland Ann MD [address] [place] [address] Referral ID Status Reason Start Date Expiration Date V isits Requested Visits Authorized [id number] Pending Review 12/29/2020 01/14/2022 1 1 [facility] Assessments Diagnosis Accidental overdose of heroin, [...] FoundDocuments on File Type Date Recorded Patient Software Development Engineer Expl anation Advance Directives and Living Will Power of Utility Teller Documents on File Type Date Recorded Patient Software Development Engineer Expl anation Advance Directives and Living Will 06/14/2019 7:25 AM does not have 3/13/2 0 Latest Code Status on File Code Status Date Activated Date Inactivated Comments Full Code 06/15/2019 9:29 AM 06/17/2019 4:38 PM Full Code - Unverified 06/14/2019 8:35 AM 06/15/2019 9:29 AM Documents on File Type Date Recorded Patient Software Development Engineer Expl anation Advance Directives and Living Will 06/14/2019 7:25 AM does not have 3/13/2 0 Latest Code Status on File Code Status Date Activated Date Inactivated Comments Full Code 06/15/2019 9:29 AM 06/17/2019 4:38 PM Full Code - Unverified 06/14/2019 8:35 AM 06/15/2019 9:29 AM Documents on File Type Date Recorded Patient Software Development Engineer Expl anation Advance Directives and Living Will 06/20/2019 1:10 PM does not have 3/13/2 0 Documents on File Type Date Recorded Patient Software Development Engineer Expl anation ACP-Advance Directive ACP-Power of Utility Teller Documents on File Type Date Recorded Patient Software Development Engineer Expl anation Advance Directives and Living Will 06/20/2019 1:10 PM does not have 3/13/2 0 Documents on File Type Date Recorded Patient Software Development Engineer Expl anation Advance Directives and Living Will 08/28/2020 5:58 AM does not have 3/13/2 0 Latest Code Status on File Code Status Date Activated Date Inactivated Comments Full Code 08/28/2020 11:15 AM 08/30/2020 11:53 AM Full Code 08/28/2020 5:31 AM 08/28/2020 11:07 AM Full Code 06/15/2019 9:29 AM 06/17/2019 4:38 PM Documents on File Type Date Recorded Patient Software Development Engineer Expl anation Advance Directives and Living Will 08/28/2020 5:58 AM does not have 3/13/2 0 Latest Code Status on File Code Status Date Activated Date Inactivated Comments Full Code 08/28/2020 11:15 AM 08/30/2020 11:53 AM Full Code 08/28/2020 5:31 AM 08/28/2020 11:07 AM Full Code 06/15/2019 9:29 AM 06/17/2019 4:38 PM Documents on File Type Date Recorded Patient Software Development Engineer Expl anation Advance Directives and Livin g Will 05/15/2021 12:00 AM Latest Code Status on File Code Status Date Activated Date Inactivated Comments Full Code 10/05/2023 9:02 PM Hospital Course * Savita Stiles PA-C - 06/17/2019 10:12 AM EDT [facility] DISCHARGE SUMMARY Tia Levin Account: [id number] Admitted: 06/14/2019 Discharge Date/Time: 06/17/19 / 10:12 [...] amphetamine and heroine use who presented to [facility] 06/14/19 with complaints of abdominal pain and nausea. [facility] AST 1116 ALT 665 Alk phos 255 T bili 6.5 Lipase 8. CTAP revealed pericholecystic fluid vs GB wall thickening, no gallstones or hepatic pathology noted. Patient transferred to [facility] 06/14/2019 for further treatment and evaluation. GI followedwith recommendations as discussed. Patient was stable for discharge home on 06/17/19. 1. Acute Liver Injury: [facility] AST 1116 ALT 665 [...] chart for all vitals, diagnostic data, and information services consultant notes. I discussed patient's case with Dr. Gregorio, Dr. Hay (GI) and RN. Discharge Medications Medication List ASK your doctor about these medications naltrexone microspheres Commonly known as: VivitroL Inject 380 (three hundred eighty) mg into the shoulder, thigh, or buttocks every 30 (thirty) days . Physician(s) Family: Physician No, Phone: None, Address: [facility] Up: Javier Hay MD [address] [facility] [address] Follow up Repeat weekly CBC, CMP and PT/INR for the next 3-4 weeks then follow up out patient with Dr. Hay. Laboratory Follow Up by [facility]: Weekly labs for CBC, CMP, PT/INR Additional Information: Patient seen and examined day of discharge. For more information regarding patient's care, including complete radiology reports, please contact [facility] at Patient instructions, including activity, [...] amphetamine and heroine use who presented to [facility] 06/14/19 with complaints of abdominal pain and nausea. [facility] AST 1116 ALT 665 Alk phos 255 T bili 6.5 Lipase 8. CTAP revealed pericholecystic fluid vs GB wall thickening, no gallstones or hepatic pathology noted. Patient transferred to [facility] 06/14/2019 for further treatment and evaluation. LFTs [...] 1:16 PM EDT RESOURCES FOR PRIMARY CARE [facility] Primary Care Closed Opens tomorrow [address], [place] [address] [facility] [place] [address] [place] [address] DIRECTIONS WEBSITE [facility] Walk-In Care Closed Opens tomorrow 11 AM [address], [place] [address] documented in this encounter* Instructions* Adia Dillon, [...] Opioid Use Disorder: Medication-Assisted Treatment: General Info (Cambodian) documented in this encounter* Attachments The following attachments cannot be sent through Care Everywhere. * Bacterial Vaginosis (Cambodian) * Trichomoniasis (Cambodian) documented in this encounter* Attachments The following attachments cannot be sent through Care Everywhere. * Dental Surgery: Generic: Post-op (Cambodian) documented in this encounter* Attachments The following attachments cannot be sent through Care Everywhere. * Bronchitis (Cambodian) * Pneumonia (Cambodian) documented in this encounter* Attachments The following attachments cannot be sent through Care Everywhere. * Poison [place] - [place] - and [place] (Cambodian) documented in this encounter History of Present Illness * Javier Hay MD - 06/17/2019 9:59 AM EDT GASTROENTEROLOGY DAILY PROGRESS NOTE 1 Patient Name: Tia Levin MR #: [id number] Assessment/Plan: Elevated LFTs Assessment & Plan 29yo F with PMHx IVDU and hepatitis C who presents from [facility] with elevated LFTs and [...] Inpatient Progress Note 06/17/2019 Tia Levin 1990 [id number] Assessment/Plan: Tia Khushi Levin is a 29 y.o. female with a history of amphetamine and heroine use who presented to [facility] 06/14/19 with complaints of abdominal pain and nausea. [facility] AST 1116 ALT 665 Alk phos 255 T bili 6.5 Lipase 8. CTAP revealed pericholecystic fluid vs GB wall thickening, no gallstones or hepatic pathology noted. Patient transferred to [facility] 06/14/2019 for further treatment and evaluation. 1. [...] labs, diagnostics, vitals including pulse ox, and information services consultant/other provider recommendations. No acute issues overnight [...] 2 Patient Name: Tia Levin MR #: [id number] Assessment/Plan: Elevated LFTs Assessment & Plan 29yo [...] Inpatient Progress Note 06/16/2019 Tia Levin 1990 [id number] Assessment/Plan: Tia Levin is a 29 y.o. female with a history of amphetamine and heroine use who presented to [facility] 06/14/19 with complaints of abdominal pain and nausea. [facility] AST 1116 ALT 665 Alk phos 255 T bili 6.5 Lipase 8. CTAP revealed pericholecystic fluid vs GB wall thickening, no gallstones or hepatic pathology noted. Patient transferred to [facility] 06/14/2019 for further treatment and evaluation. 1. [...] recent labs, diagnostics, vitals including pulseox, and information services consultant/other provider recommendations. No acute issues overnight [...] 2 Patient Name: Tia Levin MR #: [id number] Assessment/Plan: Elevated LFTs Assessment & Plan 29yo F with PMHx IVDU and hepatitis C who presents from [facility] with elevated LFTs and [...] Radiology, Medications and Transcriptions Aisha Hare CNP [facility] (for staff use only) * Indra Pruitt MD - 06/15/2019 10:43 AM EDT [facility] 06/15/2019 Tia Levin 1990 [id number] Assessment/Plan: Tia Levin is a 29 y.o. female with a history of amphetamine and heroine use who presented to [facility] 06/14/19 with complaints of abdominal pain and nausea. [facility] AST 1116 ALT 665 Alk phos 255 T bili 6.5 Lipase 8. CTAP revealed pericholecystic fluid vs GB wall thickening, no gallstones or hepatic pathology noted. Patient transferred to [facility] 06/14/2019 for further treatment and evaluation. 1. Acute Liver Injury: [facility] AST 1116 ALT 665 [...] not have a PCP and refused a watch caser consult for assistance. Verified insurance and [...] spoke with patient about going to any [facility] to have her lab taken so [...] daily (lemon water) Occasional iced coffee at [employer]. Was drinking a lot of Mountain Dew and Energy drinks prior to but stopped. Meals Away From Home - most days, fast food Past Medical History: Past Medical History: Diagnosis Date Anxiety Depression Infectious viral hepatitis hep c PTSD (Post-Traumatic Stress Disorder) History From: History obtained from patient and chart review. Current/Pertinent Medications: prescription for Current Outpatient Medications Ordered in [facility] Medication Sig Dispense Refill amoxicillin (AMOXIL) 250 [...] mass index (BMI) of 40.0 or higher ([facility]) Farhat Vang MD [phone] Referral ID Status Reason Start Date Expiration Date Visits Requested Visits Authorized [id number] Authorized Specialty Services Required/Pat ient's Best Interest 04/16/2021 04/16/2022 1 1 Specialty Diagnoses / Procedures Referred By Contac t Referred To Contact Neurosurgery Diagnoses Chronic bilateral low back pain without sciatica Farhat Vang MD [address] [phone] Carina Kline MD [address] [place] [address] Referral ID Status Reason Start Date Expiration Date Visits Requested Visits Authorized [id number] Authorized Specialty Services Required/Pat ient's Best Interest 05/14/2021 05/14/2022 1 1 Specialty Diagnoses / Procedures Referred By Contac t Referred To Contact Rehabilitation Diagnoses Chronic bilateral low back pain without sciatica Farhat Vang MD [address] [address] Referral ID Status Reason Start Date Expiration Date Visits Requested Visits Authorized [id number] Authorized Specialty Services Required/Pat ient's Best Interest 05/14/2021 05/14/2022 1 1 Specialty Diagnoses / Procedures Referred By Contac t Referred To Contact Diagnoses At risk for obstructive sleep apnea Farhat Vang MD [address] [address] Gabriel Jacinto MD [address] [place] [address] Referral ID Status Reason Start Date Expiration Date Visits Requested Visits Authorized [id number] Authorized Specialty Services Required/Pat jvnt's Best Interest [...] in second trimester Lelo Gallegos MD [address] [place] [address] Nutrition Services [address] [place] [address] Reason Comments Gestational Diabetes Status Reason Specialty Diagnoses / Procedures Referred By Contact Referred To Contact Closed Endocrinology Diagnoses Diet controlled gestational diabetes mellitus (GDM) in second trimester Roslyn Stevenson MD [address] [place] [address] Lelo Gallegos MD [address] [place] [address] Reason Comments Pharyngitis sore throat and head [...] mass index (BMI) of 40.0 or higher ([facility]) Farhat Vang MD [address] [facility] [address] [place] [address] Nutrition [address] [place] [phone] Referral ID Status Reason Start Date Expiration Date Visits Requested Visits Authorized [id number] Authorized Specialty Services Required/Pat jvnt's Best Interest [...] and Physical Note 06/14/19 Tia Levin 1990 [id number] Assessment/Plan: Tia Levin is a 29 y.o. female with a history of amphetamine and heroine use who presented to [facility] 06/14/19 with complaints of abdominal pain and nausea. [facility] AST 1116 ALT 665 Alk phos 255 T bili 6.5 Lipase 8. CTAP revealed pericholecystic fluid vs GB wall thickening, no gallstones or hepatic pathology noted. Patient transferred to [facility] 06/14/2019 for further treatment and evaluation. 1. Elevated LFTs: [facility] AST 1116 ALT 665 Alk phos 255 T bili 6.5 (normal 02/2019). [facility] CTAP as noted above. RUQ U/S [...] amphetamine and heroine use who presented to [facility] 06/14/19 with complaints of abdominal pain and nausea. OL AST 1116 ALT 665 Alk phos 255 T bili 6.5 Lipase 8. CTAP revealed pericholecystic fluid vs GB wall thickening, no gallstones or hepatic pathology noted. Patient transferred to [facility] 06/14/2019 for further treatment and evaluation. Patient [...] labs, diagnostics, vitals including pulse ox, and information services consultant/other provider recommendations. Discussed with collaborating physician [...] file Gets together: Not on file Attends zoroastrian service: Not on file Active member of [...] reviewed, including documentation from previous hospitalizations and information services consultant recommendations as summarized below. Briefly, patient [...] Name: Tia Levin Admit Date: MR #: [id number] : 1990 Senior addendum 29 y/o F [...] and hx of presents to [facility] with jaundice and abdominal pain. -RUQ U/S [...] Fleming MD General Surgery, PGY 2 Pager# [phone] 06/16/2019, 10:43 AM After 5 PM and on Weekends, please page [phone] (Surgery Real Estate Officer aeronautical inspector) History of Present Illness: Patient presented for [...] file Gets together: Not on file Attends zoroastrian service: Not on file Active member of [...] patient. I discussed the case with the resident/FIELD AIDE and agree with the findings and plan as documented in his/her note and/or any note I supplied. Associated Order(s): IP CONSULT TO GASTROENTEROLOGY GASTROENTEROLOGY CONSULT NOTE 4 Patient Name: Tia Levin Admit Date: MR #: [id number] : 1990 Physicians: Physician Judy (Family); Brie Moreno MD (Referring) Consult Ordered By: Franny Sims PA-C Assessment and Plan: Other Elevated LFTs Assessment & Plan 29yo F with PMHx IVDU and hepatitis C who presents from [facility] with elevated LFTs and [...] IVDU and hepatitis C who presents from [facility] with elevated LFTs and [...] she has been in and out of [facility] over past 3mo. She denies EtOH. Denies [...] file Gets together: Not on file Attends zoroastrian service: Not on file Active member of [...] Invalid input(s): CO2, LABALBU Aisha Hare CNP [facility] (for staff use only) Associated [...] reviewed, including documentation from previous hospitalizations and information services consultant recommendations as summarized below. Briefly, patient [...] and content) ED PROVIDER NOTE [facility] EMERGENCY DEPARTMENT NAME: Tia Levin AGE: 29 y.o. : 1990 VISIT DATE: 08/13/2019 CSN: [id number] PCP: Physician No Chief Complaint Patient presents with Drug Overdose This is a 29-year-old female brought to the ER via EMS for evaluation. Time my exam patient is alert and oriented. She states she was in the [employer] parking lot bent over in her car [...] file Gets together: Not on file Attends zoroastrian service: Not on file Active member of [...] nursing note reviewed. Exam conducted with a commercial real estate appraiser present (Nurses at the bedside). Constitutional: General: [...] with drug addiction. [address] [facility] [address] Contact information for after-discharge care Follow-up information has not been specified. Adia Dillon CNP 08/13/191948 Pt brought in by [facility], states she was found by [facility] [...] section and content) DATE CREATED AUTHOR 08/21/2019 [facility] DATE CREATED AUTHOR AUTHOR'S ORGANIZ ATION 02/15/2021 [facility] DATE CREATED AUTHOR AUTHOR'S ORGANIZ ATION 05/18/2021 [facility] DATE CREATED AUTHOR AUTHOR'S ORGANIZ ATION 07/02/2021 [facility] DATE CREATED AUTHOR AUTHOR'S ORGANIZ ATION 07/09/2021 [facility] DATE CREATED AUTHOR AUTHOR'S ORGANIZ ATION 07/05/2022 [facility] DATE CREATED AUTHOR AUTHOR'S ORGANIZ ATION 05/14/2023 [facility] DATE CREATED AUTHOR AUTHOR'S ORGANIZ ATION 10/07/2023 [facility] DATE CREATED AUTHOR AUTHOR'S ORGANIZ ATION 11/25/2023 [facility] EPIC DATE CREATED AUTHOR AUTHOR'S ORGANIZ ATION 11/26/2023 [facility] Ordered Prescriptions (unrec ognized section and content) [...]
Care Teams (unrecognized sec tion and content) Wafer Batter Mixer Relationship Specialty Start Date End Date No, Physician [facility] PCP - General 12/29/20 Germania Galaviz, LAYER UP [address] [place] [place] [id number] Nurse Practitioner Obstetrics/Gynecology 11/01/19 Wafer Batter Mixer Relationship Specialty Start Date End Date No, Physician [facility] PCP - General 12/29/20 Germania Galaviz, LAYER UP [address] [place] [address] Nurse Practitioner Obstetrics/Gynecology 11/01/19 Wafer Batter Mixer Relationship Specialty Start Date End Date Farhat Vang MD [address] [id number] PCP - General Family Medicine 04/16/21 Germania Galaviz, LAYER UP [address] [place] [address] Nurse Practitioner Obstetrics/Gynecology 11/01/19 Radha Pantoja MD [address] [place] [address] [employer] Mixer Obstetrics/Gynecology 02/02/21 Yvonne Santos MD [address] [facility] [address] [place] [address] [employer] Sp[employer] Mixer Obstetrics/Gynecology 02/02/21 Regla Dias, IRAIDA [address] [place] [address] Technical Specialist Cytology Obstetrics/Gynecology 02/02/21 Wafer Batter Mixer Relationship Specialty Start Date End Date Farhat Vang MD [address] [facility] [address] [place] [address] PCP - General Family Medicine 04/16/21 Germania Galaviz, LAYER UP [address] [place] [address] Nurse Practitioner Obstetrics/Gynecology 11/01/19 Radha Pantoja MD [address] [place] [address] [employer] And Spice Mixer Obstetrics/Gynecology 02/02/21 Yvonne Santos MD [address] [place] [address] [employer] And Spice Mixer Obstetrics/Gynecology 02/02/21 LarissaRegla alcazar, [facility] [address] [facility] [place] [address] Technical Specialist Cytology Obstetrics/Gynecology 02/02/21 Wafer Batter Mixer Relationship Specialty Start Date End Date Farhat Vang MD [address] [facility] [address] [place] [address] PCP - General Family Medicine 04/16/21 Germania Galaviz, [facility] [address] [place] [address] Nurse Practitioner Obstetrics/Gynecology 11/01/19 Radha Pantoja MD [address] [place] [place] [address] [employer] And Spice Mixer Obstetrics/Gynecology 02/02/21 Yvonne Santos MD [address] [facility] [place] [address] [employer] And Spice Mixer Obstetrics/Gynecology 02/02/21 Larissa, Reglasoren Arriaga, [facility] [address] [place] [address] Technical Specialist Cytology Obstetrics/Gynecology 02/02/21 Wafer Batter Mixer Relationship Specialty Start Date End Date Linda Sheppard DO [address] [place] [place] [address] PCP - General Family Medicine 09/04/22 Wafer Batter Mixer Relationship Specialty Start Date End Date Linda Sheppard DO [address] [place] [address] PCP - General Family Medicine 09/04/22 Wafer Batter Mixer Relationship Specialty Start Date End Date Linda Sheppard DO [address] [place] [place] [address] PCP - General Family Medicine 09/04/22 FOR [...] BE BASED ON THE PRIMARY CLINICAL RECORDS. [facility] [employer] [facility]. provides no warranty or guarantee of the accuracy or completeness of information in this document.
== END 2023-12-07 20:08 | disposition home or self-care (01) ==
LOC: LAB 20:07
PROVIDERS: Visit Provider Obstetrics & Gynecology
DX: Z34.93 Encounter for supervision of normal pregnancy, unspecified, third trimester (principal)
CPT/HCPCS: 87081; 87150

== ENCOUNTER 2023-12-09 07:06 | Outpatient (OUT) | payer BC, SELFPAY ==
--- OUTSIDE RECORDS SUMMARY | 2023-12-09 07:10 | XMS_ITS | CCD ---
Author Organization [facility] ion Partnership [facility] Care Team Providers Care [facility] Retail Sales Manager Name Role Phone Unavailable Primary Care Provider Unavailabl e No, Physician Primary Care Provider Unavailabl e HODA MADERA Unavailable Unavailable Primary Care Provider Unavailabl e No, Physician Primary Care Provider Unavailabl Germania Becerra Unavailable Roslyn Stevenson Unavailable Radha Pantoja Unavailable Yvonne Santos Unavailable Larissa, Regla Corina Unavailable No, Physician Primary Care Provider UnavailGermania Rodriguez CNP Unavailable [phone] Roslyn Stevenson MD Unavailable Radha Pantoja MD Unavailable Yvonne Santos MD Unavailable Larissa CNM, Regla Corina Unavailable Unavailable Primary Care Provider UnavailGermania Rodriguez CNP Unavailable [phone] Roslyn Stevenson MD Unavailable Radha Pantoja MD [...] Pantoja MD Unavailable Yvonne Santos MD Unavailable [phone] Larissa KHOURY, Regla Corina Unavailable Ciera PEDRAZA, [...] Care Provider UnavailLinda Marie Primary Care Physician [phone] EL[address] ., DR GRANADOS Consulting Unavailable ELIANA [...] Unavailable Linda Sheppard DO Primary Care Provider [phone] Jonathan Martinez Attending Unavailable Zac Fields Attending [...] day(s), # 14 tab(s), Refills(s) 0, Pharmacy: [facility], 160, cm, 05/11/23 21:53:00 EST, Height/Length [...] oral solution (2 sources) alpha-Adrenergic Agonist, Uncompetitive B-drrbgk-W-aspartate Receptor Antagonist, Sigma-1 Agonist Start: End: take 5 mL by mouth four times daily as needed for cough brompheniramine-pse udoephedrine-DM (BROMFED DM) 2-30-10 MG/5ML syrup Take 5 mLs by mouth 4 times daily as needed for Congestion or Cough 240 mL 1 10/12/2021 11/11/2021 Active Start: 11-07-2020 End: 11-12-2020 take 5 mL by mouth three times daily as needed for cough gyhxlwpsrorpptd-mnhdilvokjtsbnf-OP 2-30- 10 MG/5ML syrup Take 5 mLs [...] 0, (swish and spit; do not swallow), [facility], 160, cm, 05/11/23 21:53:00 EST, [...] Active Dextromethorphan / guaiFENesin (2 sources) Uncompetitive L-lpfbde-O-asparta te Receptor Antagonist, Sigma-1 Agonist End: 06-24-2020 [...] day(s), # 15 tab(s), Refills(s) 0, Pharmacy: [facility], 160, cm, 05/13/23 11:33:00 EST, Height/Length [...] for Pain. 0 05/10/2023 Discontinued (LIST CLEANUP) [id number] 200 actuat albuterol 0.09 mg/actuat metered dose [...] Oral, Every 4 hours PRN, indigestion, Starting [facility] 06/14/19 at 0831 azithromycin 250 mg oral [...] Oral, Daily PRN, constipation, For constipation., Starting [facility] 06/14/19 at 0831 naloxone (NARCAN) injection 0.1 [...] Translations: [Accidental overdose of heroin, initial encounter ([facility])] Episodic Substance-related disorders (1 source) [...] l admission (14 sources) Admission statuses; Translations: [[facility] (current) use of opiate analgesic] Onset: 05-18-2019 [...] Coag (Bld) [Time] 29.8 s Normal 23.9-33.8 [facility] Comment on above: Result Comment: IV Heparin Therapy Range: 62.0-94.0 Performed By: #### P T, PTT, BMP, CDP, TROPI #### [facility] [address] [place] [address] Tow Truck Operator: Guero Sandoval MD Basic Metabolic Profon 10-04 Anion gap [Moles/Vol] 13 mmol/L Normal 11-21 [facility] Comment on above: Performed By: #### P T, PTT, BMP, CDP, TROPI #### [facility] [address] [place] [address] Tow Truck Operator: Guero Sandoval MD BUN/CRE Ratio Result cannot be calculated, Creatinine below linear range. Normal 11-24 [facility] Comment on above: Performed By: #### P T, PTT, BMP, CDP, TROPI #### [facility] [address] [place] [address] Tow Truck Operator: Guero Sandoval MD Calcium [Mass/Vol] 8.7 mg/dL Normal 8.6-10.4 [facility] Comment on above: Performed By: #### P T, PTT, BMP, CDP, TROPI #### [facility] [address], [place] [phone] [employer] Operator: Guero Sandoval MD Chloride [Moles/Vol] 105 mmol/L Normal 98-107 [facility] Comment on above: Performed By: #### P T, PTT, BMP, CDP, TROPI #### [facility] [address], [place] [phone] [employer] Operator: Guero Sandoval MD CO2 [Moles/Vol] 18 mmol/L Low 20-31 [facility] Comment on above: Performed By: #### P T, PTT, BMP, CDP, TROPI #### [facility] [address], [place] [phone] Tow [employer] Operator: Guero Sandoval MD Creatinine [Mass/Vol] mg/dL Low 0.5-0.9 [facility] Comment on above: Performed By: #### P T, PTT, BMP, CDP, TROPI #### [facility] [address], [place] [phone] [employer] Operator: Guero Sandoval MD eGFR Can not be calculated Normal >60 [facility] Comment on above: Result Comment: These [...] P T, PTT, BMP, CDP, TROPI #### [facility] [address], [place] [phone] [employer] Operator: Guero Sandoval MD Glucose [Mass/Vol] 111 mg/dL High 70-99 [facility] Comment on above: Performed By: #### P T, PTT, BMP, CDP, TROPI #### [facility] [address], [place] [phone] [employer] Operator: Guero Sandoval MD Potassium [Moles/Vol] 3.8 mmol/L Normal 3.7-5.3 [facility] Comment on above: Performed By: #### P T, PTT, BMP, CDP, TROPI #### [facility] [address] [place] [address] Tow [employer] Operator: Guero Sandoval MD Sodium [Moles/Vol] 136 mmol/L Normal 135-144 [facility] Comment on above: Performed By: #### P T, PTT, BMP, CDP, TROPI #### [facility] [address] [place] [address] [employer] Operator: Guero Sandoval MD Urea nitrogen [Mass/Vol] 6 mg/dL Normal 6-20 [facility] Comment on above: Performed By: #### P T, PTT, BMP, CDP, TROPI #### [facility] [address] [place] [phone] [employer] Operator: Guero Sandoval MD Brain Natri. Peptideon 10-04 Pro-BNP <36 Normal 0-300 [facility] Comment on above: Result Comment: An a ge-independent cutoff point of 300 pg/ml has a 98% negative predictive value excluding acute heart failure. Performed By: #### B BUS ASSISTANT, TROPI #### [facility] [address] [place] [address] Tow Truck Operator: Thor Hernández MD CBC with Diffon 10-05-2023 Abs. Basophil 0.04 k/uL Normal 0.00-0.20 [facility] Comment on above: Performed By: #### P T, PTT, BMP, CDP, TROPI #### [facility] [address] [place] [phone] [employer] Operator: Guero Sandoval MD Abs.Imm.Granulocyte 0.16 k/uL Normal 0.00-0.30 [facility] Comment on above: Performed By: #### P T, PTT, BMP, CDP, TROPI #### [facility] [address] [place], [place] [phone] Tow [employer] Operator: Guero Sandoval MD Abs.Neutrophil (Seg) 8.05 k/uL High 2.5-7.0 [facility] Comment on above: Performed By: #### P T, PTT, BMP, CDP, TROPI #### [facility] [address] [place] [address] [employer] Operator: Guero Sandoval MD Basophils/100 WBC (Bld) 0 % Normal 0-2 [facility] Comment on above: Performed By: #### P T, PTT, BMP, CDP, TROPI #### [facility] [address] [place], [place] [phone] [employer] Operator: Guero Sandoval MD Eosinophils (Bld) [#/Vol] 0.08 10*3/uL Normal 0.00-0.4 0 [facility] Comment on above: Performed By: #### P T, PTT, BMP, CDP, TROPI #### [facility] [address] [place] [address] [employer] Operator: Guero Sandoval MD Eosinophils/100 WBC (Bld) 1 % Normal 0-5 [facility] Comment on above: Performed By: #### P T, PTT, BMP, CDP, TROPI #### [facility] [address] [place], [place] [phone] [employer] Operator: Guero Sandoval MD Erythrocyte distribution width (RBC) [Ratio] 13.1 % Normal 12.1-15.2 [facility] Comment on above: Performed By: #### P T, PTT, BMP, CDP, TROPI #### [facility] [address] [place] [phone] [employer] Operator: Guero Sandoval MD Hematocrit (Bld) [Volume fraction] 28.8 % Low 36.0-46.0 [facility] Comment on above: Performed By: #### P T, PTT, BMP, CDP, TROPI #### [facility] [address] [place] [phone] [employer] Operator: Guero Sandoval MD Hemoglobin (Bld) [Mass/Vol] 9.8 g/dL Low 12.0-16.0 [facility] Comment on above: Performed By: #### P T, PTT, BMP, CDP, TROPI #### [facility] [address] [place] [phone] [employer] Operator: Guero Sandoval MD Immature granulocytes/100 WBC (Bld) 2 % Normal 0-5 [facility] Comment on above: Performed By: #### P T, PTT, BMP, CDP, TROPI #### [facility] [address] [place] [phone] [employer] Operator: Guero Sandoval MD Lymphocytes (Bld) [#/Vol] 1.61 10*3/uL Normal 1.00-4.8 0 [facility] Comment on above: Performed By: #### P T, PTT, BMP, CDP, TROPI #### [facility] [address] [place] [phone] [employer] Operator: Guero Sandoval MD Lymphocytes/100 WBC (Bld) 15 % Normal 15-40 [facility] Comment on above: Performed By: #### P T, PTT, BMP, CDP, TROPI #### [facility] [address] [place] [phone] [employer] Operator: Guero Sandoval MD MCH (RBC) [Entitic mass] 27.7 pg Normal 26.0-34.0 [facility] Comment on above: Performed By: #### P T, PTT, BMP, CDP, TROPI #### [facility] [address] [place] [address] Tow Truck Operator: Guero Sandoval MD MCHC (RBC) [Mass/Vol] 34.0 g/dL Normal 31.0-37.0 [facility] Comment on above: Performed By: #### P T, PTT, BMP, CDP, TROPI #### [facility] [address] [place] [address] Tow Truck Operator: Guero Sandoval MD MCV (RBC) [Entitic vol] 81.4 fL Normal 80.0-100.0 [facility] Comment on above: Performed By: #### P T, PTT, BMP, CDP, TROPI #### [facility] [address] [place] [address] Tow Truck Operator: Guero Sandoval MD Monocytes (Bld) [#/Vol] 0.77 10*3/uL Normal 0.00-1.00 [facility] Comment on above: Performed By: #### P T, PTT, BMP, CDP, TROPI #### [facility] [address] [place] [address] [employer] Truck Operator: Guero Sandoval MD Monocytes/100 WBC (Bld) 7 % Normal 4-8 [facility] Comment on above: Performed By: #### P T, PTT, BMP, CDP, TROPI #### [facility] [address] [place] [address] [employer] Truck Operator: Guero Sandoval MD Neutrophil (Seg) 75 % Normal 47-75 [facility] Comment on above: Performed By: #### P T, PTT, BMP, CDP, TROPI #### [facility] [address] [place] [address] [employer] Operator: Guero Sandoval MD Platelet mean volume (Bld) [Entitic vol] 10.2 fL Normal 6.0-12.0 [facility] Comment on above: Performed By: #### P T, PTT, BMP, CDP, TROPI #### [facility] [address] [place] [address] [phone] Tow [employer] Operator: Guero Sandoval MD Platelets (Bld) [#/Vol] 275 10*3/uL Normal 140-450 [facility] Comment on above: Performed By: #### P T, PTT, BMP, CDP, TROPI #### [facility] [address] [place] [address] [phone] Tow Truck Operator: Guero Sandoval MD RBC (Bld) [#/Vol] 3.54 10*6/uL Low 4.00-5.20 [facility] Comment on above: Performed By: #### P T, PTT, BMP, CDP, TROPI #### [facility] [address] [place] [address] Tow Truck Operator: Guero Sandoval MD WBC (Bld) [#/Vol] 10.7 10*3/uL Normal 3.5-11.0 [facility] Comment on above: Performed By: #### P T, PTT, BMP, CDP, TROPI #### [facility] [address] [place] [address] Tow Truck Operator: Guero Sandoval MD CT CHEST PULMONARY [...] Petersen MD 10/05/23 Final result Normal [facility] Liver Profileon 10-05-2023 Albumin [Mass/Vol] 3.0 g/dL Low 3.5-5.2 [facility] Comment on above: Performed By: #### L IVP #### [facility] [address] [place] [address] Tow Truck Operator: Guero Sandoval MD Alkaline Phos 74 U/L Normal 35-104 [facility] Comment on above: Performed By: #### L IVP #### [facility] [address] [place] [address] Tow Truck Operator: Guero Sandoval MD ALT [Catalytic activity/Vol] U/L Low 5-33 [facility] Comment on above: Performed By: #### L IVP #### [facility] [address] [place], [place] [phone] Tow [employer] Operator: Guero Sandoval MD AST [Catalytic activity/Vol] 9 U/L Normal <32 [facility] Comment on above: Performed By: #### L IVP #### [facility] [address] [place], [place] [phone] [employer] Operator: Guero Sandoval MD Bilirubin [Mass/Vol] 0.3 mg/dL Normal 0.3-1.2 [facility] Comment on above: Performed By: #### L IVP #### [facility] [address] [place], [place] [phone] Tow Truck Operator: Guero Sandoval MD Bilirubin, Indirect Can not be calculated Normal 0.0-1.0 [facility] Comment on above: Performed By: #### L IVP #### [facility] [address] [place], [place] [phone] Tow Truck Operator: Guero Sandoval MD Bilirubin.indirect [Mass/Vol] mg/dL Normal <0.3 [facility] Comment on above: Performed By: #### L IVP #### [facility] [address] [place], [place] [phone] Tow [employer] Operator: Guero Sandoval MD Protein [Mass/Vol] 5.9 g/dL Low 6.4-8.3 [facility] Comment on above: Performed By: #### L IVP #### [facility] [address] [place], [place] [phone] [employer] Operator: Guero Sandoval MD PTon 10-05-2023 INR Coag (PPP) [Relative time] 1.0 {INR} Normal [facility] Comment on above: Result Comment: Therapeutic Range: Moderate Anticoagulant Intensity: INR = 2.0-3.0 High Anticoagulant Intensity: INR = 2.5-3.5 Performed By: #### P T, PTT, BMP, CDP, TROPI #### [facility] [address] [place] [address] Tow Truck Operator: Guero Sandoval MD PT Coag (PPP) [Time] 13.6 s Normal 11.5-14.2 [facility] Comment on above: Performed By: #### P T, PTT, BMP, CDP, TROPI #### [facility] [address] [place] [address] Tow Truck Operator: Guero Sandoval MD Troponinon 10-05-2023 Troponin, High Sens <6 Normal 0-14 [facility] Comment on above: Result Comment: High Sensitivity Troponin values cannot be compared with other Troponin methodologies. Performed By: #### B BUS ASSISTANT, TROPI #### [address] [phone] [employer] Operator: Thor Hernández MD Troponin, High Sens <6 Normal 0-14 [facility] Comment on above: Result Comment: High Sensitivity Troponin values cannot be compared with other Troponin methodologies. Performed By: #### P T, PTT, BMP, CDP, TROPI #### [facility] [address] [place] [address] Tow Truck Operator: Guero Sandoval MD UA w/Reflex Cultureon 2023 Bilirubin, SemiQt,Ur Negative Normal NEG [facility] Comment on above: Performed By: #### U MICAO, UAX #### [facility] [employer] [address] [place] [address] Tow Truck Operator: Thor Hernández MD Blood, Urine Negative Normal NEG [facility] Comment on above: Performed By: #### U MICAO, UAX #### [facility] [employer] [address] [place] [address] Tow [employer] Operator: Thor Hernández MD Clarity (U) Cloudy Abnormal CLEAR [facility] Comment on above: Performed By: #### U MICAO, UAX #### [facility] [address] [place] [address] Tow [employer] Operator: Thor Hernández MD Color (U) Yellow Normal YEL [facility] Comment on above: Performed By: #### U MICAO, UAX #### [facility] [employer] [address] [place] [address] Tow [employer] Operator: Thor Hernández MD Glucose Ql (U) 1+ mg/dL Abnormal NEG [facility] Comment on above: Performed By: #### U MICAO, UAX #### [facility] [employer] [address] [place] [address] [employer] Operator: Thor Hernández MD Ketones Ql (U) TRACE Abnormal NEG [facility] Comment on above: Performed By: #### U MICAO, UAX #### [facility] [employer] [address] [place] [address] [employer] Operator: Thor Hernández MD Leukocyte esterase Test strip Ql (U) Negative Normal NEG [facility] Comment on above: Performed By: #### U MICAO, UAX #### [facility] [employer] [address] [place] [address] [employer] Operator: Thor Hernández MD Nitrite,Ur Negative Normal NEG [facility] Comment on above: Performed By: #### U MICAO, UAX #### [facility] [employer] [address] [place] [address] Tow [employer] Operator: Thor Hernández MD PH,Ur 6.0 Normal 5.0-8.0 [facility] Comment on above: Performed By: #### U MICAO, UAX #### [facility] [employer] [address] [place] [address] Tow Truck Operator: Thor Hernández MD Protein Ql (U) TRACE Abnormal NEG [facility] Comment on above: Performed By: #### U MICAO, UAX #### [facility] [employer] [address] [place] [address] Tow Truck Operator: Thor Hernández MD Spec. [place],Ur 1.028 Normal 1.005-1.030 [facility] Comment on above: Performed By: #### U MICAO, UAX #### [address] [address] Tow Truck Operator: Thor Hernández MD Urobilinogen,Ur Normal Normal 0.0-1.0 [facility] Comment on above: Performed By: #### U MICAO, UAX #### [address] [address] Tow Truck Operator: Thor Hernández MD Urinalysis,Microon 4 Bacteria MODERATE Abnormal NONE [facility] Comment on above: Performed By: #### U MICAO, UAX #### [address] [address] [employer] Operator: Thor Hernández MD Casts 2 TO 5 HYALINE Normal 0-8 [facility] Comment on above: Result Comment: Refe rence range defined for non-centrifuged specimen. Performed By: #### U MICAO, UAX #### [address] [address] [employer] Operator: Thor Hernández MD Epithelial cells LM Ql (Urine sed) 20 TO 50 Normal 0-5 [facility] Comment on above: Performed By: #### U MICAO, UAX #### [address] [address] [employer] Operator: Thor Hernández MD Urine RBC's 0 TO 2 Normal 0-4 [facility] Comment on above: Result Comment: Refe rence range defined for non-centrifuged specimen. Performed By: #### U MICAO, UAX #### [address] [address] [employer] Operator: Thor Hernández MD Urine WBC's 5 TO 10 Normal 0-5 [facility] Comment on above: Performed By: #### U KAYDEN UAX #### [facility] [address] [address] Tow [employer] Operator: Thor Hernández MD AFP, Maternalon 07-28-2023 Determined by Ultrasound Normal [facility] Comment on above: Performed By: #### T SH, FT4, FT3 #### [facility] [address] [place] [address] [employer] Operator: Thor Hernández MD #### AAFPM #### [facility] [employer] [address] [place] [address] [employer] Operator: Thor Hernández MD [facility] [employer] [address] [place], [place] [phone] Tow Truck Operator: Tim Vizcarra MD Due Date SEE NOTE Normal [facility] Comment on above: Result Comment: Resu lts for Estimated Due Date: 01 06 24 Performed By: #### T SH, FT4, FT3 #### [facility] [address] [place] [address] [employer] Operator: Thor Hernández MD #### AAFPM #### [address] [address] Tow [employer] Operator: Thor Hernández MD [facility] [address] [place] [address] Tow Truck Operator: Tim Vizcarra MD Family History No Normal [facility] Comment on above: Performed By: #### T SH, FT4, FT3 #### [facility] [address] [place] [address] [employer] Operator: Thor Hernández MD #### AAFPM #### [facility] [employer] [address] [place] [address] Tow Truck Operator: Thor Hernández MD [facility] [address] [place] [address] Tow Truck Operator: Tim Vizcarra MD Gestat Age (exact) 16 wks, 4 days Normal [facility] Comment on above: Performed By: #### T SH, FT4, FT3 #### [address] [address] Tow [employer] Operator: Thor Hernández MD #### AAFPM #### [address] [address] Tow [employer] Operator: Thor Hernández MD [address] [phone] Tow [employer] Operator: Tim Vizcarra MD Ins Req Matern Diab No Normal [facility] Comment on above: Performed By: #### T SH, FT4, FT3 #### [address] [address] Tow [employer] Operator: Thor Hernández MD #### AAFPM #### [address] [address] Tow [employer] Operator: Thor Hernández MD [address] [phone] Tow [employer] Operator: Tim Vizcarra MD Interpretation Screen Neg Normal [facility] Comment on above: Result Comment: (NOT E) INTERPRETATION: SCREEN NEGATIVE for open spina bifida Neural Tube Defects (NTD) Negative Pre-Test Post-Test Cutoff Neural Tube Defects Risks 1:452 1:3230 1:103 Comments: The risk of an open neural tube defect is less than the twin screening cut-off. This test was developed and its performance characteristics determined by [facility]. It has not been cleared or approved by the [place] Food and Drug Administration. This test was performed in a CLIA certified laboratory and is intended for clinical purposes. Performed By: #### T SH, FT4, FT3 #### [address] [address] [employer] Operator: Thor Hernández MD #### AAFPM #### [facility] [address] [place] [address] [employer] Operator: Thor Hernández MD [address] [phone] Tow [employer] Operator: Tim Vizcarra MD [age] [facility] Comment on above: Performed By: #### T , FT4, FT3 #### [facility] [address] [place] [address] [employer] Operator: Thor Hernández MD #### AAFPM #### [facility] [address] [address] [employer] Operator: Thor Hernández MD [address] [address] [employer] Operator: Tim Vizcarra MD Maternal Race Nonblack [facility] Comment on above: Performed By: #### T SH, FT4, FT3 #### [facility] [address] [place] [address] [employer] Operator: Thor Hernández MD #### AAFPM #### [address] [address] [employer] Operator: Thor Hernández MD [address] [address] [employer] Operator: Tim Vizcarra MD Maternal Weight 239.0 lbs. [facility] Comment on above: Performed By: #### T SH, FT4, FT3 #### [facility] [address] [place] [address] [employer] Operator: Thor Hernández MD #### AAFPM #### [facility] [address] [address] [employer] Operator: Thor Hernández MD [address] [address] Tow Truck Operator: Tim Vizcarra MD MoM for AFP 1.71 Normal [facility] Comment on above: Performed By: #### T SH, FT4, FT3 #### [facility] [address] [place] [address] Tow Truck Operator: Thor Hernández MD #### AAFPM #### [address] [address] Tow Truck Operator: Thor Hernández MD [facility] [address] [place] [address] Tow Truck Operator: Tim Vizcarra MD Number of Fetuses Twins Normal [facility] Comment on above: Performed By: #### T SH, FT4, FT3 #### [address] [address] Tow Truck Operator: Thor Hernández MD #### AAFPM #### [address] [address] Tow Truck Operator: Thor Hernández MD [address] [phone] Tow Truck Operator: Tim Vizcarra MD Patient's AFP 46 ng/mL Normal [facility] Comment on above: Performed By: #### T SH, FT4, FT3 #### [address] [address] Tow Truck Operator: Thor Hernández MD #### AAFPM #### [address] [address] Tow Truck Operator: Thor Hernández MD [facility] [address] [place] [address] Tow Truck Operator: Tim Vizcarra MD Smoking Unknown Normal [facility] Comment on above: Performed By: #### T SH, FT4, FT3 #### [address] [address] Tow Truck Operator: Thor Hernández MD #### AAFPM #### [address] [address] Tow Truck Operator: Thor Hernández MD [address] [address] Tow Truck Operator: Tim Vizcarra MD Specimen See Note [facility] Comment on above: Result Comment: (NOT E) Initial sample Performed By: [employer] [address] [place] [address], [place] [address] Electric Deicer Inspector: Morro Modi MD, PhD CLIA Number: [id number] Performed By: #### T SH, FT4, FT3 #### [address] [address] Tow Truck Operator: Thor Hernández MD #### AAFPM #### [address] [address] Tow Truck Operator: Thor Hernández MD [address] [phone] Tow Truck Operator: Tim Vizcarra MD [facility] 07-27-2023 Current Smoking INFORMATION NOT PROVIDED [facility] Comment on above: Performed By: #### T SH, FT4, FT3 #### [address] [address] Tow Truck Operator: Thor Hernández MD #### AAFPM #### [address] [address] Tow Truck Operator: Thor Hernández MD [address] [phone] Tow Truck Operator: Tim Vizcarra MD [facility] Comment on above: Performed By: #### T SH, FT4, FT3 #### [address] [address] Tow Truck Operator: Thor Hernández MD #### AAFPM #### [address] [address] Tow Truck Operator: Thor Hernández MD [facility] [address] [place] [address] Tow Truck Operator: Tim Vizcarra MD Diabetic Negative [facility] Comment on above: Performed By: #### T SH, FT4, FT3 #### [facility] [address] [place] [address] Tow Truck Operator: Thor Hernández MD #### AAFPM #### [address] [address] Tow Truck Operator: Thor Hernández MD [address] [phone] Tow Truck Operator: Tim Vizcarra MD Donor Egg INFORMATION NOT PROVIDED [facility] Comment on above: Performed By: #### T SH, FT4, FT3 #### [address] [address] Tow Truck Operator: Thor Hernández MD #### AAFPM #### [address] [address] Tow Truck Operator: Thor Hernández MD [address] [phone] Tow Truck Operator: Tim Vizcarra MD Estimated Due Date 01/06/2024 [facility] Comment on above: Performed By: #### T SH, FT4, FT3 #### [facility] [address] [place] [address] Tow Truck Operator: Thor Hernández MD #### AAFPM #### [address] [address] Tow Truck Operator: Thor Hernández MD [address] [phone] Tow Truck Operator: Tim Vizcarra MD Family History Negative [facility] Comment on above: Performed By: #### T SH, FT4, FT3 #### [facility] [address] [place] [address] Tow Truck Operator: Thor Hernánedz MD #### AAFPM #### [facility] [address] [place] [address] Tow Truck Operator: Thor Hernández MD [facility] [address] [place], [place] [phone] Tow Truck Operator: Tim Vizcarra MD In Vitro Fertalizat INFORMATION NOT PROVIDED [facility] Comment on above: Performed By: #### T SH, FT4, FT3 #### [facility] [address] [address] Tow Truck Operator: Thor Hernández MD #### AAFPM #### [facility] [address] [address] Tow Truck Operator: Thor Hernández MD [address] [address] Tow Truck Operator: Tim Vizcarra MD LMP date 2023 [facility] Comment on above: Performed By: #### T SH, FT4, FT3 #### [facility] [address] [place] [address] Tow Truck Operator: Thor Hernández MD #### AAFPM #### [address] [address] Tow Truck Operator: Thor Hernández MD [facility] [address] [place], [place] [phone] Tow Truck Operator: Tim Vizcarra MD Maternal date 1990 [facility] Comment on above: Performed By: #### T SH, FT4, FT3 #### [facility] [address] [place] [address] Tow Truck Operator: Thor Hernández MD #### AAFPM #### [facility] [address] [place] [address] Tow Truck Operator: Thor Hernández MD [facility] [address] [place] [address] Tow Truck Operator: Tim Vizcarra MD Maternal Weight 239 Normal [facility] Comment on above: Performed By: #### T SH, FT4, FT3 #### [facility] [address] [place] [address] Tow Truck Operator: Thor Hernández MD #### AAFPM #### [address] [address] Tow Truck Operator: Thor Hernández MD [facility] [address] [place] [address] Tow Truck Operator: Tim Vizcarra MD Monochorionic Twins Positive Normal [facility] Comment on above: Performed By: #### T SH, FT4, FT3 #### [address] [address] Tow Truck Operator: Thor Hernández MD #### AAFPM #### [address] [address] Tow Truck Operator: Thor Hernández MD [facility] [address] [place] [address] Tow Truck Operator: Tim Vizcarra MD Patient Weight Units LBS Normal [facility] Comment on above: Performed By: #### T SH, FT4, FT3 #### [facility] [address] [place] [address] Tow Truck Operator: Thor Hernández MD #### AAFPM #### [address] [address] Tow Truck Operator: Thor Hernández MD [facility] [address] [place] [address] Tow Truck Operator: Tim Vizcarra MD Race (Maternal) Normal [facility] Comment on above: Performed By: #### T SH, FT4, FT3 #### [address] [address] Tow Truck Operator: Thor Hernández MD #### AAFPM #### [address] [address] Tow Truck Operator: Thor Hernández MD [address] [phone] Tow Truck Operator: Tim Vizcarra MD Repeat Specimen INFORMATION NOT PROVIDED [facility] Comment on above: Performed By: #### T SH, FT4, FT3 #### [address] [address] Tow Truck Operator: Thor Hernández MD #### AAFPM #### [address] [address] Tow Truck Operator: Thor Hernández MD [address] [phone] Tow Truck Operator: Tim Vizcarra MD Valproic/Carbamazep INFORMATION NOT PROVIDED [facility] Comment on above: Performed By: #### T SH, FT4, FT3 #### [address] [address] Tow Truck Operator: Thor Hernández MD #### AAFPM #### [address] [address] Tow Truck Operator: Thor Hernández MD [address] [address] Tow Truck Operator: Tim Vizcarra MD Thyroxine, Freeon 07-27-2023 Thyroxine, Free 1.0 ng/dL Normal 0.92-1.68 [facility] Comment on above: Performed By: #### T SH, FT4, FT3 #### [address] [address] Tow Truck Operator: Thor Hernández MD #### AAFPM #### [address] [address] Tow Truck Operator: Thor Hernández MD [address] [address] Tow Truck Operator: Tim Vizcarra MD Protein,Tot,[place] [employer] 2023 Creatinine [Mass/Vol] 273.0 mg/dL High 28.0-217.0 [facility] Comment on above: Performed By: #### U RTPRT #### [address] [address] Tow Truck Operator: Thor Hernández MD Tot Prot. Conc. 21 mg/dL Normal [facility] Comment on above: Result Comment: No n ormal range established. Performed By: #### U RTPRT #### [address] [address] Tow Truck Operator: Thor Hernández MD TP/Cre Ratio 0.08 Normal [facility] Comment on above: Performed By: #### U RTPRT #### [address] [address] Tow Truck Operator: Thor Hernández MD T3, Freeon 3 Free T3 [Mass/Vol] 3.40 pg/mL Normal 2.00-4.40 [facility] Comment on above: Performed By: #### T SH, FT4, FT3 #### [address] [address] Tow Truck Operator: Thor Hernández MD #### AAFPM #### [address] [address] Tow Truck Operator: Thor Hernández MD [employer] [address] [place] [address] Tow Truck Operator: Tim Vizcarra MD Thyroid Stim. Horm.on 2023 Thyroid Stim. Horm. <0.01 Low 0.27-4.20 [facility] Comment on above: Performed By: #### T SH, FT4, FT3 #### [facility] [address] [place], [place] [phone] Tow Truck Operator: Thor Hernández MD #### AAFPM #### [facility] [address] [place], [place] [phone] Tow Truck Operator: Thor Hernández MD [facility] [employer] [address] [place] [address] Tow Truck Operator: Tim Vizcarra MD ED Note-Physicianon 05-14-19 ED [...] see dentistry until she is cleared by [facility]. She does not have an appointment for [facility] to next week. She has no OB [...] day(s), # 15 tab(s), Refills(s) 0, Pharmacy: [facility], 160, cm, 05/13/23 11:33:00 EST, Height/Length [...] Oral, q6hr Follow-up With When Contact Information [facility] In 3 days 05/16/2023 EDT [address] [place] [address] Business (1) Additional Instructions: Dentistry follow-up Patient [...] made to ensure accuracy, however, inadvertently computerized stable manager mistakes may be present. Appropriate healthcare PPE was used in evaluating this patient. Problem List/Past Medical History Ongoing Acute hepatitis C Anxiety Apnea, sleep Dental caries PCOS (polycystic ovarian syndrome) Historical No qualifying data Procedure/Surgical History Delivery. Medications Inpatient ampicillin-sulbacta m additive + Sodium Chloride 0.9% intravenous solution 100 (more content not included)... Normal [facility] Comment on above: Result Comment: Elec tronically Signed By: Greg Stratton PA-C\.br\Date and Time Signed: 05/13/23 12:45 EST\.br\Electronically Co-Signed By: Jonathan Martinez DO\.br\Date and Time Co-Signed: 05/14/23 07:40 EST Consent for Treatmenton Consent for Treatment [id number] EC#1.00TIFF Normal [facility] Discharge Instructionson Discharge Instructions [id number] 53#1.00TIFF Normal [facility] ED Clinical Summaryon 2023 ED Clinical Summary [place] [id number] ED Clinical Summary Person Information Name: TIA MONROE Maria Elena/[facility] Age: 33 Years : 1990 Sex: Female Language: New Zealander PCP: Linda Sheppard DO Marital Status: Visit [...] 13:02:19 05/13/2023 13:02:19 ADDRESS: [address] [facility] [id number] PHYS DOC NOTES: MEDICAL INFORMATION: Prescriptions Given: New Medications [facility], [address] [place], [place] [id number], [phone] oxycodone (oxyCODONE 5 mg Tab) 1 Tablets [...] Dental Abscess Follow up: With: Address: When: [address] [address] Business (1) In 3 days 05/16/2023 Comments: Dentistry follow-up DIAGNOSIS: Dental abscess Normal [facility] ED Patient Education Noteon 05-13-2023 [...] these instructions at home: Medicines ? Take gnos-eqy-dmxmuwi and prescription medicines only as told by [...] mouth. ? (more content not included)... Normal [facility] ED Patient Summaryon 024 ED Patient Summary [address] [address] Patient Discharge Instructions Person Information Name: TIA MONROE Age: 33 Years Arrival Date: 05/13/2023 11:19:01 Discharge Diagnosis: Dental abscess Primary Care Physician: Linda Sheppard DO Provider Information Primary Provider: Jonathan Martinez DO [employer] Sales Representative:Greg Stratton PA-C The exam and treatment you received in the Emergency Department were for an urgent problem and are not intended as complete care. It is important that you follow up with a doctor, nurse practitioner, or physician?s food and nutrition services assistant for ongoing care. If your symptoms become worse or you do not improve as expected and you are unable to reach your usual health care provider, you should return to the Emergency Department. We are available 24 hours a day. TIA MONROE has been given the following list of patient education materials, prescriptions and follow-up instructions: Follow-up Instructions: With: Address: When: [facility] [address] [address] Business (1) In 3 days 05/16/2023 Comments: Dentistry follow-up In the event that this physician does not participate in your insurance network, please consult with your insurance company to find a nearby participating provider. Patient Education Materials: Dental Abscess A MESSAGE TO ALL PATIENTS REGARDING OPIOIDS PRESCRIPTION OPIOIDS: WHAT YOU NEED TO KNOW Prescription opioids can be used to help relieve nonjpmaz-ph-bcoszn pain and are often prescribed following a [...] struggling with addiction, tell your health career development director and ask for guidance or call [facility] National Helpline at 6-219-9 (more content not included)... Normal [facility] Discharge Instructionson Discharge Instructions [id number] 40 [id number]#1.00TIFF Normal [facility] ED Clinical Summaryon 2023 ED Clinical Summary [place] [id number] ED Clinical Summary Person Information Name: TIA MONROE Maria Elena/[facility] Age: 33 Years : 1990 Sex: Female Language: New Zealander PCP: Linda Sheppard DO Marital Status: Visit [...] 05/11/2023 23:59:00 05/11/2023 23:59:00 ADDRESS: [address] [facility] [id number] PHYS DOC NOTES: MEDICAL INFORMATION: Prescriptions Given: New Medications [facility], [address], [place] [id number], [phone] amoxicillin-clavula cindi (Augmentin 875 mg oral tablet) [...] Medication PATIENT EDUCATION INFORMATION: Instructions: Dental Pain, Zgda-rg-Ncfv Follow up: With: Address: When: Linda Sheppard DO, [address] [place] [address] In 3 days 05/14/2023 DIAGNOSIS: 1:Pain, dental; 2:Infected dental caries; 3:First trimester ; Periapical abscess without sinus Normal [facility] ED Note-Physicianon 05-12-19 ED Note-Physician Basic Information Time Seen: Violet Walters PA-C 05/11/2023 22:59 Chief Complaint pt arrives for c/o dental pain on the right upper side. states cannot see her denitist d/t being . pt states seen in [place] [facility] and started on amoxcillin. History of Present Illness Patient is a 7-week 33-year-old female with history of PCOS that presents to the ED with her for evaluation of dental pain. Patient says pain started on Tuesday. She localizes it to the right upper jaw, radiates into her face ear and cheek. She went to [place] [facility] yesterday and was initiated on amoxicillin [...] day(s), # 14 tab(s), Refills(s) 0, Pharmacy: [facility], 160, cm, 05/11/23 21:53:00 EST, Height/Length Dosing, 110, kg, 05/11/23 21:53:00 EST, Weight Dosing chlorhexidine topical, 0.018 gm, 15 mL, Oral, BID, 480 mL, Refill(s) 0, (swish and spit; do not swallow), [facility], 160, cm, 05/11/23 21:53:00 EST, Height/Length Dosing, 110, kg, 05/11/23 21:53:00 EST, Weight Dosing (more content not included)... Normal [facility] Comment on above: Result Comment: [...] these instructions at home: Medicines ? Take ffvj-gzy-adtioxk and prescription medicines only as told by [...] to the area. Brushing your teeth ? [place] your teeth twice a day using a [...] when you eat or drink. ? Take zjfd-cej-byfwzar and prescription medicines only as told by [...] Reviewed: 11/26/2020 Elsevier Patient Education ? 2022 [employer] Normal [facility] ED Patient Summaryon 024 ED Patient Summary [address] [address] Patient Discharge Instructions Person Information Name: TIA MONROE Age: 33 Years Arrival Date: 05/11/2023 21:25:54 Discharge Diagnosis: 1:Pain, dental; 2:Infected dental caries; 3:First trimester ; Periapical abscess without sinus Primary Care Physician: Linda Sheppard DO Provider Information Primary Provider: Zac Fields M.D. [employer] Sales Representative:Violet Walters PA-C The exam and treatment you received in the Emergency Department were for an urgent problem and are not intended as complete care. It is important that you follow up with a doctor, nurse practitioner, or physician?s food and nutrition services assistant for ongoing care. If your [...] Instructions: With: Address: When: Linda Sheppard DO [address] [place] [address], Amelie C, [facility] [address] [place], [place] [id number] In 3 days 05/14/2023 In the event that this physician does not participate in your insurance network, please consult with your insurance company to find a nearby participating provider. Patient Education Materials: Dental Pain, Xwnr-dh-Vngx A MESSAGE TO ALL PATIENTS REGARDING OPIOIDS PRESCRIPTION OPIOIDS: WHAT YOU NEED TO KNOW Prescription opioids can be used to help relieve obazasrg-qr-yutgot pain and are often prescribed following a [...] struggling with addiction, tell your health career development director an (more content not included)... Normal [facility] Consent for Treatmenton Consent for Treatment [id number] 96#1.00TIFF [facility] Progesteroneon 12-28-2022 Progesterone 12.60 ng/mL Normal [facility] Comment on above: Result Comment: Female: Follicular phase <0.19 ng/mL Ovulation phase 0.06-4.14 ng/mL Luteal phase 4.11-14.5 ng/mL Postmenopausal <0.13 ng/mL Performed By: #### P NICKY #### [facility] [address] [place] [address] Tow Truck Operator: Thor Hernández MD Progesteroneon 11-24-2022 Progesterone 7.18 ng/mL High 0.0-0.15 [facility] Comment on above: Result Comment: Female: Follicular phase <0.19 ng/mL Ovulation phase 0.06-4.14 ng/mL Luteal phase 4.11-14.5 ng/mL Postmenopausal <0.13 ng/mL Performed By: #### P NICKY #### [facility] [address] [place] [address] Tow Truck Operator: Thor Hernández MD , Urineon HCG ( test) Ql (U) Negative NEGATIVE [facility] XR ANKLE RIGHT (MIN 3 VIEWS) on 09-04-2022 FINDINGS/IMPRESSION : No acute displaced fracture identified. Ankle mortise is symmetric. There is a 1 mm tiny calcified body which is remote appearing near the distal fibular tip. Minimal ankle soft tissue edema. [facility] EXAM: XR ANKLE RIGHT (MIN 3 VIEWS) INDICATION: Reason for exam:->swelling COMPARISON: None. TECHNIQUE: Radiographs as described above [facility] Bettye Johnson MD - 09/04/2022 EXAM: XR ANKLE RIGHT (MIN 3 VIEWS) INDICATION: Reason for exam:->swelling COMPARISON: None. TECHNIQUE: Radiographs as described above IMPRESSION: FINDINGS/IMPRESSION : No acute displaced fracture identified. Ankle mortise is symmetric. There is a 1 mm tiny calcified body which is remote appearing near the distal fibular tip. Minimal ankle soft tissue edema. [facility] Radiology Study observation (narrative) [facility] XR ANKLE RIGHT (MIN 3 VIEWS) Ordered By: Bettye Johnson on 09-04-2022 [facility] Work Phone: Coding Summary.on 07-09-2022 Coding Summary. CD:[id number] bWw+PGhlYWQ+[id number] [id number] lOSywgQVBQTElOSyIgb cUlTP0ebQZmBORu IC8+NL9gHDYvKdxceYI fm2P8nUQ9U14uuv3pJA jmdWE0SCOlLvAgshdmc 1dwpAz3HZbvKkiwKaHg PLNtcL59RSJ7sE58Hl9 1rWSvmWJhc6yzkLn3Kg YuUFFaYHX0sOopRWjfo 0IkJRMqR95inSWbb2L8 IGNvbGxhcHNlOyBlbXB 8bC8uCKqfyjftp4mdlu ygCsn8oi67vBHyp3Y3b DV0Y6HsasO0CFUgjHWn WmbggEFTlT3ewtmaa7h nkldiZjXgASVeANv5VZ x7LQYtmRftRtOiEK71N NZ2CZUxwaPnE5VaCJEk uJccEsL0n5I5Zl0IP5O APjpzJ9SAVFNUZJilxZ Q+TK97ca80V0HtXssmJ bu6PDUyOGX7jBS3gR5k OUTxMYung3M5vXU4R4C eojGopo7uk1kyRGVlEZ hpL25dhNAkw8U6PKKjl AE2MPQcdBoiYdEvdG38 Oyc+LNSpxWtyy8YtVfe ln1bmm4khbLn0HuyjYS GcjmRcfAwaUNZ7h9GyF s4aOQAttQE2yZI6pS5l XuXlZzM9AXbmL988JkF rhGRzXquoF92pM1AuiJ A+KRIhOzm5COOryVqmP T7hR4ZeRAVpnsyjlNCy gBavDX3eUCCabghsFXC otD5hJVTkX6q3WuTeUq X3QMqvZ3TnQLLyacleG o76tR7zOcGjNnW4FUbp M0QitdK4VNKukQOsZSn tSQQ0R05ox7C1FVPxHI AcULD9kXC7uV9pgMepa jogbGVmdDsgdmVydGlj UBtwOGhlZ930DGBuhMh nPkNvZGluZyBEYXRlOi AgMDUvMDUvMjAyMzwvd GQ+BTCgMFW4sQjqYOHu rEPwTRdcBj4ioDuatXw dNX6iORCslxqgXACbyU 9lRPMldGScqTteGU7iO PZfbxici969GxCtULJ1 PUAeaCUkY4KzpU6sErW tYTOnPTOdK6BxvHVlCO ofF479PMdcYzP4VMRxi eYaK0RlMXAroWwbGrD7 w8M4Ef6Di9UnyowcN7E jvOElZlTrEuvdBGt1J1 RkPjwvdHI+MM76VZFnK U51YCq1JGC4aDbqUSkk XRLjL3CmqQ5zGlAgXUR kZGRkOyc+PHRhYmxlIH dpZHRoPScxMDAlJyBzd SubHU9sUo6xFBLnPSFi fNloyTPdNlRtp0qfGYG jOZfcTQ9toVvaP9HlrP G9BZIbm2n3Dn41G02mE 3JvdXA+WLDcpRH7gFZ0 cO2dIjZgUyA9LCgjJ58 7WeTvwUYqUsvvf5wnn5 npbIl1BtS5ZMZrvfXjw YloVAZ0y9PrVc64B27p IHdpZHRoPSIxNSUiIHZ jaLfxkt3onJ1iCs2+PG TfrHQ6wDH3pP0rNiUiQ wT3NBibU190PnVmdVSo Tygfa4qjm8qnyDh8YgZ yZNTobyEobUzqNFS2q9 TqJk39B4VwcCref3BaT kx1hw67gRSmg5G9xNG7 G6EtPNSbwyveaDPmnNt gKP7aXYDhgircFFNjkH 8tSSMvI9b3QcCmOlD2T JfjR7ToboO3TQKzeXVx URDphUTSkM2qgscum4c zwmnqFjNhBDDkUGz0NT r0YROucIhpYaUrCHH8I rE4AFA8tZAjnL2fkHxk nchzcZ9aIlk+LSJ3sQK jiPWTXF5zVueruRU+PH YzTWO5eSluNMbeJZJau O6gEWTeP2j5OmPxVmP1 NKghX3HroyX5UMZadFN qSKFesIRDuW2kfhkza1 wocwqfCiWsSZYdPLs3R Bt0LSHptEseXyNzVEY7 GnS3MXQ3dJEssP8inIc pioeshB5vJsm+QmlydG bhRSY7KSv8Y7SnVhy0H MVkePpsXM5cnEYaMFll Lb5dtSmcsSleKM9iSQB ratqxe615IiCkj1nkDR CueYTpMAaeHRC5T74si 2K3YIErJLQjTHB7aFQ6 cK4ngHtzrhgpdXDemAo gdmVydGljYWwtYWxpZ2 20BAFpyXbgQyBfQQq5O 1LvDqd8YSCjdQzrKU0w zKFsSNoiVb0ibGdoxTj hXQ5lPTMiicevh303Sq Ggs2qmTLWwwKKhXLwcC NZ5G18ha9X4FMKhUUIt GYS2pMO0nI6nlTjnarc gbGVmdDsgdmVydGljYW dtBKxeN214PFQccDxdW mGxkPm3S9OcGvt4GVXg xJuaRH0azJIyYZylQj0 vyFsarUkhKY8fDAOhlu nak264FzBrb4lcASVmt FGgUBczOKR6N18am7X7 UZJwYMWoQHR4dHD8rG3 hbGlnbjogbGVmdDsgdm MsfBtrPCbzTTfhJ080S HRvcDsnPlBhdGllbnQg RJypRNa7K7EhNletiVT +MG18GTPvKC82uLBuiW Pkj7kfySq9YxFuVWXhW IQ8hZrfSUhlj2DpLQYv Y38gnHVbf3Z4SCSuxGo seRXoTvGmhKK8cH8eTP mkyzxfr3hzubkiPsxwc 6wqpj65eV34B52iDIih ZHRoPSIzMCUiIHZhbGl nud2pgS5rLy9+PGNvbC N1qAJ4kA2uAPNbAhX5B SrbY693ChDpsTVeJnaw q9pvt1smbXi2DnZ1SMW spiBywPasXHI0x9PcKu 76C60lITyaXAJnBDZoE XGeQAMzuWrrbe2nzI6l Ii8+KHUogTT6jHI0rK1 vFqRqHsN7XGyvN663Gx UorLFgBtjiI56nT9Ksa XA+RSHuMpd0DGTqpOen IE5vvAYuGAtbOt2oDPC 6OxZwKkArWMsmO3LgPL EiqsllheppdIV1ZUFcE HPfoZ82Mv0zrKxqUZRs wEADiN6jwsrsk7vbfvx vXmUvYZQwQUi8LSn8ZT BleAowBgGsMMF7QhZ0A UF4nDHgeS1qcIohdzlp mJ4aT6MgZETbfsuaJb3 3cE5iTaPlOkF7UHvqZy c+Ow3KTlTYEkxqIkTBT kRJRTwvdGQ+PHRkIHN0 lDhzNTxtRYCjwA6uJGW uW4y0TzVlZyS5ZTvtH1 MfHGJvhvpoXu20lL4hS rKnPxO3WDthI0YdleM7 MACpxHIaMVoxOAE5X79 yo4Z6WXRiPGMsKTT0yY C7oA5ilLezrydilOLnw DsgdmVydGljYWwtYWxp T898TBMkwTfcBaVzVuH 0XgX5EXO4D9PtOsa6LK XerCgoKS8jcLEmRVnkA q3pmOeycFldUK3gVDPi pkyzJLFrqM4sXJPifUQ njEvsGV2dQGSnwgtuz8 43VlDiFWS0CEUktFRcZ 8YeyU8sYvIoSJAjUIQl P4LqcOCeWLyjT176CVc cDhW8SQEikaGvK8MvJG MtzWniEhD0x4M0Bl1tY iBZZWFyczwvdGQ+PHRk HOZ4vRqwXJmjAOFhaO7 gSMWmK3i1PhNiRaX9VX ueS7PqCCSxzushYc43q O1wOaAiAbE8RIkmF0Nx ugN3YHOomHPtETaeCUY 5M60vl4F0EDVyPYNfUR Z5bFH7dB5ilAgtxaatl GVmdDsgdmVydGljYWwt TJufE437CPRdpOodCfO lbWFsZTwvdGQ+PHRkIH D1cDuqSIebVCHorI4aR ZYyU8s7OxBlDlU3IUyw F9IbGOYfoxnhUe71sP4 tFcXzBsA7EVrjM4Vohe H8WMKgdXRdQTbbWGJ5S 46hh8Z9VPMiZXFrARI7 jDW8tN1qiSusqyzzcGK mdDsgdmVydGljYWwtYW hyF481UGSpeLqtGiCyd J8vNFNlMNatgNUteZcv dGQ+CH41qk36L6XoJrn pDwx9MOEsUFY8cZJ1lS 0jRCCeYIfkg5L2gST1O 5AvblLfqw2xf8nzNXZq NOscW12ngJEft1X7YQJ ehFJ4OBSofRzgXyMnjV 93Oyc+YUZbmUluf6WmQ ycnl8svm5ckoZn7EvZk AXUzleHerBvjLGN0w3Q vLt11Y09vKRrnVEXvSK WoLAJgNYVhkOngyp8gj G9wIi8+CDTvyZH5wAL4 jJ7lRbHzKkY0YDbjY54 6QuGoxTTgZxkby2ijg6 iceJo4GvSnKWMscsMhp YbgZLE5c5QpGe29L6Eh oIdzq2QjJdr6mq52sTA av8L8lTO5A6NbRCShte gzpJArjEakWN3hNDLyd pzzAUZudD3jFMDmO9b9 EfBuVsT9SIwxP7FjexN 6IGJvbGQgMTBwdCBUaW 8ouqvbr1ukraevYcXgR RFgEIi1OXc9JCXnoUnr UqRsBUJ9TmH3CYX7bMG iaX4pzKzzzowasP0lFc c+ALx2s8udqRQcDB9eg NK4YI45PL32xJScw7L9 eKN5S7EzXOJmwnlyouv uoND9GBZtGXJnjO70Xp 5aoYyyHg4dAKDbTNN8D DIyqJCwL1XqgL0cOlSh JWWqDSCpN5UzcKVoQVr gU746QTqzUmV9MCDkmy IrQ6KxWYIviSwxMtX8i 5Z1Ky1IXG55EM69YA21 kKZtn8P9uPX9O8PoNDH lixmzyrgzyBN0XCFyLE VlaL73Im4ghCxxHb8rR HRkLLM0JTZmxOZhH0Ne vL6kPgZtSYOmMVWuC3L pfEZsWBkpP468JMttTi X0BNYqesHlA9UwPCQkj HxcDgJ7i8H2Hy9FSi89 SB05PZ93hQVkw6R4tEV 0B6RsFGBfgurgeqcscO T4MOUzVAZcyG97Tj1mz WibFi6jVSVoDXT9KYVf lABfQ4AayU8fCkXyTGT hMTFhB8IbrFQmVXjaX2 88PSenXcC5MJHeakZsA 0FnPYFylNdpBlX4t9Y4 Yw4AVFkwnns3Z8TqZyl vdHI+MF92ASBkTQ20iL UhoUYgc0cmnHx1FfInN SZcUCQ5dPjbPHfmi2Eb REEgX86u (more content not included)... Normal [facility] Consultation Noteon 07-07-19 Consultation Note [...] Problems Acute hepatitis C / SNOMED CT 774728044 / Confirmed Anxiety / SNOMED CT 32320318 / Confirmed Apnea, sleep / SNOMED CT 181250624 / Confirmed Dental caries / SNOMED CT 267744840 / Confirmed PCOS (polycystic ovarian syndrome) / SNOMED CT 969895355 / Confirmed Histories Past Medical History: Active Dental caries ([id number]) Family History: No family history items have [...] Patient agrees with plan of care. Normal [facility] Comment on above: Result Comment: Elec tronically Signed By: Bing PEDRAZA, Todd Lilly\.br\Date and Time Signed: 07/06/22 13:28 EDT DHEA SERUMon 07-04-2022 Dehydroepiandrosterone (DHEA) 220 ng/dL Normal 31-701 [facility] Comment on above: Performed By: #### D KAN. ####[facility] [address] [place], [place] [address]JsSelwyn Layneshivam Daniel DHEA-SULFATEon 06-30-2022 DHEA-Sulfate 106.0 ug/dL Normal 84.8-378.0 [facility] Comment on above: Performed By: #### D DEEPTI ####[facility] [address] [address]Dr. Nito Sanchez FSHon 06-30-2022 FSH 6.6 mIU/mL Normal [facility] Comment on above: Result Comment: Adul t Female: Follicular phase 3.5 - 12.5 Ovulation phase 4.7 - 21.5 Luteal phase 1.7 - 7.7 Postmenopausal 25.8 - 134.8 Performed By: #### L [facility] #### [facility] [address] [address] [address] Nito Sanchez LUTEINIZING HORMONE (LH)on 0 06-30-2022 LH 18.9 mIU/mL Normal [facility] Comment on above: Result Comment: Adul t Female: Follicular phase 2.4 - 12.6 Ovulation phase 14.0 - 95.6 Luteal phase 1.0 - 11.4 Postmenopausal 7.7 - 58.5 Performed By: #### L BCLH #### [facility] [address] [place] [address] Dr. Nito Sanchez PROLACTINon 06-30-2022 Prolactin 5.3 ng/mL Normal 4.8-23.3 [facility] Comment on above: Performed By: #### P ROLAC #### [facility] [address] [address] [address] Nito Sanchez CBC AUTO DIFFon 06-29-2022 BASO # 0.1 103/ul Normal 0.0-0.1 [facility] Comment on above: Performed By: #### C BC #### [facility] [address] [address] [address] Nito Sanchez Basophils/100 WBC (Bld) 0.5 % Normal 0.2-2.0 [facility] Comment on above: Performed By: #### C BC #### [facility] [address] [address] [address] Nito Sanchez EO # 0.2 103/ul Normal 0.0-0.7 [facility] Comment on above: Performed By: #### C BC #### [facility] [address] [place] [address] Dr. Nito Sanchez Eosinophils/100 WBC (Bld) 1.6 % Normal 0.9-7.0 [facility] Comment on above: Performed By: #### C BC #### [facility] [address] [place] [address] Dr. Nito Sanchez Erythrocyte distribution width (RBC) [Ratio] 13.6 % Normal 11.0-15.0 [facility] Comment on above: Performed By: #### C BC #### [facility] [address] [place] [address] Dr. Nito Sanchez Hematocrit (Bld) [Volume fraction] 39.7 % Normal 36.0-48.0 [facility] Comment on above: Performed By: #### C BC #### [facility] [address] [place] [address] Dr. Nito Sanchez Hemoglobin (Bld) [Mass/Vol] 13.1 g/dL Normal 12.0-16.0 [facility] Comment on above: Performed By: #### C BC #### [facility] [address] [place] [address] Dr. Nito Sanchez IG # 0.05 10e3/ul Critically high 0.00-0.03 [facility] Comment on above: Performed By: #### C BC #### [facility] [address] [place] [address] Dr. Nito Sanchez IG % 0.5 % Normal 0.0-0.5 [facility] Comment on above: Performed By: #### C BC #### [facility] [address] [place] [address] Dr. Nito Sanchez LYMPH # 2.6 103/ul Normal 1.2-3.8 [facility] Comment on above: Performed By: #### C BC #### [facility] [address] [place] [address] Dr. Nito Sanchez Lymphocytes/100 WBC (Bld) 25.3 % Normal 20.5-60.0 [facility] Comment on above: Performed By: #### C BC #### [facility] [address] [place] [address] Dr. Nito Sanchez MANUAL DIFF REQ NO Normal [facility] Comment on above: Performed By: #### C BC #### [facility] [address] [place] [address] Dr. Nito Sanchez MCH (RBC) [Entitic mass] 27.1 pg Normal 26.7-34.0 [facility] Comment on above: Performed By: #### C BC #### [facility] [address] [place] [address] Dr. Nito Sanchez MCHC (RBC) [Mass/Vol] 33.0 g/dL Normal 29.9-35.2 [facility] Comment on above: Performed By: #### C BC #### [facility] [address] [place] [address] Dr. Nito Sanchez MCV (RBC) [Entitic vol] 82.2 fL Normal 81.0-99.0 [facility] Comment on above: Performed By: #### C BC #### [facility] [address] [place] [address] Dr. Nito Sanchez MONO # 0.5 103/ul Normal 0.3-0.8 [facility] Comment on above: Performed By: #### C BC #### [facility] [address] [place] [address] Dr. Nito Sanchez Monocytes/100 WBC (Bld) 5.0 % Normal 1.7-12.0 [facility] Comment on above: Performed By: #### C BC #### [facility] [address] [place] [address] Dr. Nito Sanchez NEUT # 6.9 103/ul Critically high 1.4-6.5 [facility] Comment on above: Performed By: #### C BC #### [facility] [address] [place] [address] Dr. Nito Sanchez Neutrophils/100 WBC (Bld) 67.1 % Normal 43.0-75.0 [facility] Comment on above: Performed By: #### C BC #### [facility] [address] [place] [address] Dr. Nito Sanchez Platelet mean volume (Bld) [Entitic vol] 10.0 fL Normal 9.5-13.5 [facility] Comment on above: Performed By: #### C BC #### [facility] [address] [place] [address] Dr. Nito Sanchez PLT 313 103/ul Normal 150-450 [facility] Comment on above: Performed By: #### C BC #### [facility] [address] [place] [address] Dr. Nito Sanchez RBC 4.83 106/ul Normal 4.20-5.40 [facility] Comment on above: Performed By: #### C BC #### [facility] [address] [place] [address] Dr. Nito Sanchez WBC 10.3 103/ul Normal 4.0-11.0 [facility] Comment on above: Performed By: #### C BC #### [facility] [address] [place] [address] Dr. Nito Sanchez Consent for Treatmenton 06-06 Consent for Treatment [id number] 650#1.00CD:127 Normal [facility] FREE T4on 06-29-2022 Free T4 [Mass/Vol] 1.01 ng/dL Normal 0.76-1.46 [facility] Comment on above: Performed By: #### F T4 #### [facility] [address] [place] [address] Dr. Nito Sanchez GLYCOHEMOGLOBIN A1Con 2022 ADA RECOMMENDATION SEE BELOW Normal [facility] Comment on above: Result Comment: ADA RECOMMENDED LIMIT 4.0 - 6.0 ADA THERAPEUTIC TARGET < 7.0 ACTION SUGGESTED > 7.0 Performed By: #### A 1C #### [facility] [address] [place] [address] Dr. Nito Sanchez Glucose [Mass/Vol] 108 mg/dL Normal [facility] Comment on above: Performed By: #### A 1C #### [facility] [address] [place] [address] Dr. Nito Sanchez HbA1c (Bld) [Mass fraction] 5.4 % Normal 4.5-6.2 [facility] Comment on above: Performed By: #### A 1C #### [facility] [address] [place] [address] Dr. Nito Sanchez HIPAA Forms Officeon 023 HIPAA Forms Office [id number] 602#1.00CD:127 Normal [facility] Legal Correspondence Officeo n 06-29-2022 Legal Correspondence Office [id number] 270#1.00CD:127 Normal [facility] Legal Correspondence Office [id number] 787#1.00CD:127 Normal [facility] Office/Clinic Note-Physician on 06-29-2022 Office/Clinic Note-Physician [id number] 515#1.00CD:127 Normal [facility] Orders Officeon 06-29-2022 Orders Office [id number] 642#1.00CD:127 Normal [facility] PREG QUANT HCGon 06-29-2022 HCG QUANT 1 mIU/mL Normal [facility] Comment on above: Performed By: #### T BERNICE, PREGQNT #### [facility] [address] [place] [address] Dr. Ntio Sanchez HCG RANGE SEE BELOW Normal [facility] Comment on above: Result Comment: 5-50 0.2-1 WEEK 50-500 1-2 WEEKS 100-5,000 2-3 WEEKS 500-10,000 3-4 WEEKS 1,000-50,000 4-5 WEEKS 10,000-100,000 5-6 WEEKS 15,000-200,000 6-8 WEEKS 10,000-100,000 2-3 MONTHS Performed By: #### T SH, PREGQNT #### [facility] [id number] Nito Sanchez Patient Correspondenceon Patient Correspondence [id number] 946#1.00CD:127 Normal [facility] Patient Correspondence [id number] 137#1.00CD:127 Normal [facility] Patient Correspondence [id number] 273#1.00CD:127 Normal [facility] Patient Correspondence [id number]#1.00CD:127 Normal [facility] Patient Correspondence [id number]#1.00CD:127 Normal [facility] Patient History Officeon Patient History Office [id number]#1.00CD:127 Normal [facility] Patient History Office [id number] 721#1.00CD:127 Normal [facility] Radiology Outside Office Reserve Operator yon 06-29-2022 Radiology Outside Office Copy [id number] 142#1.00CD:127 Normal [facility] TSHon 06-29-2022 TSH 0.848 uIU/mL Normal 0.358-3.740 [facility] Comment on above: Performed By: #### T SH, PREGQNT #### [facility] [address] [address] [address] Niot Sanchez US PELVIS AND TRANSVAGon US PELVIS [...] by: BETTYE DANIELS Date: 2022-06-29 15:17 Normal [facility] PAP ACOG PANEL 2: 30 to 65on 06-19-2022 . . Normal [facility] Comment on above: Result Comment: Perf ormed at: WB Performed By: #### 4 [id number] #### [facility] [address] [address] [address] Nito Sanchez Age Gdln ACOG Testing 30-65 Normal [facility] Comment on above: Performed By: #### 4 [id number] #### [facility] [address] [address] [address] Nito Sanchez DIAGNOSIS: Comment Normal [facility] Comment on above: Result Comment: NEGA TIVE FOR INTRAEPITHELIAL LESION OR MALIGNANCY. Performed at: WB Performed By: #### 4 [id number] #### [facility] [address] [address] [address] Nito Sanchez HPV Aptima Negative Normal Negative [facility] Comment on above: Result Comment: This nucleic acid amplification test detects fourteen high-risk HPV types (16,18,31,33,35,39,45,51,52,56,58,59,66,68) without differentiation. Performed at: =G Performed By: #### 4 [id number] #### [facility] [address] [address] [address] Nito Sanchez HPV Genotype Reflex Comment Normal [facility] Comment on above: Result Comment: Crit eria not met, HPV Genotype not performed. Performed at: WB Performed By: #### 4 [id number] #### [facility] [address] [place] [address] Dr. Nito Sanchez Methodology: Comment Normal [facility] Comment on above: Result Comment: This liquid based ThinPrep(R) pap test was screened with the use of an image guided system. Performed at: WB Performed By: #### 4 [id number] #### [facility] [address] [place] [address] Dr. Nito Sanchez Note: Comment Normal [facility] Comment on above: Result Comment: The Pap smear is a screening test designed to aid in the detection of premalignant and malignant conditions of the uterine cervix. It is not a diagnostic procedure and should not be used as the sole means of detecting cervical cancer. Both false-positive and false-negative reports do occur. . Performed at: WB Performed By: #### 4 [id number] #### [facility] [address] [place] [address] Dr. Nito Sanchez Performed by: Comment Normal [facility] Comment on above: Result Comment: Nanda Treadwell, Business Development Specialist (ASCP) Performed at: WB Performed By: #### 4 [id number] #### [facility] [address] [place] [address] Dr. Nito Sanchez Specimen adequacy: Comment Normal [facility] Comment on above: Result Comment: Sati sfactory for evaluation. Endocervical and/or squamous metaplastic cells (endocervical component) are present. Performed at: WB Performed By: #### 4 [id number] #### [facility] [address] [place] [address] MAXILLOFACIAL WO CONTRAST on 05-11-2022 Recent extraction of the right mandibular and maxillary second molar teeth with presence of air in the respective tooth sockets. No evidence of edema in the sublingual space or the buccal space Probable periapical abscess involving the right maxillary premolar tooth adjacent to the first molar tooth. [facility] RIS CONSOLIDATED EXAM: CT MAXILLOFACIAL [...] visualized intracranial contents show no acute process. [facility] Phil Romero MD - 05/11/2022 [...] tooth adjacent to the first molar tooth. [facility] Work Phone: Radiology Study observation (narrative) [employer] Work Phone: CT MAXILLOFACIAL WO CONTRAST Ordered By: Phil Mary on 05-11-2022 [facility] Work Phone: Urine Preg (Lab)on 3 Beta HCG ( test) Ql (U) Negative NEGATIVE [place] HCG, Quantitative, on 03-29-2022 hCG Quant NINF [facility] Comment on above: Non-preg premeno <=5 Postmeno <=8 Male <=3 If HCG results do not concur with clinical observations, additional testing to confirm results is recommended. ALEXANDRA PANIAGUA [facility] COVID-19, Rapidon 07-22-2021 SARS-CoV-2 (COVID-19) RNA KALPESH+probe Ql (Unsp spec) Not detected Not Detected [facility] Comment on above: Rapid NAAT: The [...] management decisions. Fact sheet for Healthcare Providers: https://www.fda.gov/media/587657/download Fact sheet for Patients: https://www.fda.gov/media/092767/download Methodology: Isothermal Nucleic Acid Amplification Specimen Description .NASOPHARYNGEAL SWAB [facility] Strep Screen Group A Throato n 07-22-2021 S. pyogenes Ag Ql (Throat) Negative NEGATIVE [facility] Comment on above: Rapid Strep A negati ve. A negative Rapid Group A Strep Screen result does not rule out the possibility of Group A Streptococci in the specimen. A Group A Strep DNA test is available upon request. Source .THROAT SWAB [facility] LUMBAR SPINE WITHOUT [...] stenosis. 2. No fracture or spondylolisthesis. [facility] Workstation ID: [id number] Dictated by: JONATHAN [...] 14.0 % 11.6 - 14.8 % [facility] Hematocrit (Bld) [Volume fraction] 38.6 % 36.0 - 46.0 % [facility] Hemoglobin (Bld) [Mass/Vol] 12.1 g/dL 12.0 - 16.0 g/dL [facility] Interpretation and review of laboratory results Abnormal [facility] MCH (RBC) [Entitic mass] 25.4 pg Low 26. 0 - 34.0 pg [facility] MCHC (RBC) [Mass/Vol] 31.3 g/dL 31.0 - 37.0 g/dL [facility] MCV (RBC) [Entitic vol] 81.1 fL 80.0 - 100.0 fL [facility] Platelet mean volume (Bld) [Entitic vol] 10.0 fL 9.4 - 12.4 fL [facility] Platelets (Bld) [#/Vol] 379 10*3/uL [facility] RBC (Bld) [#/Vol] 4.76 10*6/uL [facility] WBC (Bld) [#/Vol] 9.85 10*3/uL [facility] Comprehensive metabolic 2000 panelon 04-16-2021 Albumin [Mass/Vol] 3.7 g/dL 3.2 - 5.2 g/dL [facility] ALP [Catalytic activity/Vol] 95 U/L 40 - 140 U/L [facility] ALT [Catalytic activity/Vol] 36 U/L 14 - 65 U/L [facility] Anion gap [Moles/Vol] 11 mmol/L 10 - 2 0 mmol/L [facility] AST [Catalytic activity/Vol] 22 U/L 0 - 45 U/L [facility] Bilirubin [Mass/Vol] 0.3 mg/dL 0.0 - 1 .3 mg/dL [facility] Calcium [Mass/Vol] 9.3 mg/dL 8.4 - 10. 2 mg/dL [facility] Chloride [Moles/Vol] 105 mmol/L 98 - 10 8 mmol/L [facility] Creatinine [Mass/Vol] 0.68 mg/dL 0.40 - 1.10 [facility] GFR/1.73 sq M.predicted CKD-EPI (S/P/Bld) [Vol rate/Area] 117 >=60 mL/min/1.73 m2 [facility] Glucose [Mass/Vol] 76 mg/dL 65 - 99 mg/dL [facility] HCO3 [Moles/Vol] 26 mmol/L 21 - 32 mmol/L [facility] Interpretation and review of laboratory results Normal [facility] Potassium [Moles/Vol] 4.2 mmol/L 3.5 - 5.1 mmol/L [facility] Protein [Mass/Vol] 7.5 g/dL 6.0 - 8.0 g/dL [facility] Sodium [Moles/Vol] 138 mmol/L 135 - 145 mmol/L [facility] Urea nitrogen [Mass/Vol] 13 mg/dL 8 - 25 mg/dL [facility] Urea nitrogen/Creatinine [Mass ratio] 19.1 mg/mg [facility] The eGFR should be used for monitoring renal function only and not for medication dosing. [facility] Lipid 1996 panelon 2 Cholesterol [Mass/Vol] 195 mg/dL 100 - 199 mg/dL [facility] Comment on above: National Cholesterol Education Program Guidelines: Cholesterol Desirable: <200 mg/dL Borderline High: 200-239 mg/dL High: greater than or equal to 240 mg/dL Cholesterol in HDL [Mass/Vol] 56 mg/dL 40 - 59 [facility] Comment on above: National Cholesterol Education Program Guidelines: HDL Cholesterol Low: <40 mg/dL Near Optimal: 40-59 mg/dL High: greater than or equal to 60 mg/dL Cholesterol in LDL [Mass/Vol] 109 mg/dL 10 - 130 mg/dL [facility] Comment on above: National Cholesterol Education Program Guidelines: LDL Cholesterol Optimal: <100 mg/dL Near Optimal/above Optimal: 100-129 mg/dL Borderline High: 130-159 mg/dL High: 160-189 mg/dL Very High: greater than or equal to 190 mg/dL Cholesterol non HDL [Mass/Vol] 139 mg/dL [facility] Comment on above: National Cholesterol Education Program Guidelines: NON HDL Cholesterol Desirable: <130 mg/dL Borderline High: 130-159 mg/dL High: 160-189 mg/dL Very High: > or = 190 mg/dL Cholesterol.total/Cholest elton in HDL [Mass ratio] 3.5 {ratio} ratio [facility] Comment on above: Female Cholesterol/H DL Ratio: Average risk: 4.4 1/2 average risk: 3.3 2 x average risk: 7.1 Interpretation and review of laboratory results Abnormal [facility] Triglyceride [Mass/Vol] 151 mg/dL High 30 - 150 mg/dL [facility] Comment on above: National Cholesterol Education Program Guidelines: Triglyceride Normal: <150 mg/dL Borderline High: 150-199 mg/dL High: 200-499 mg/dL Very High: greater than or equal to 500 mg/dL No Panel Informationon 04-16 [facility] TSH DL <= 0.005 mIU/L Qnon 0 04-16-2021 Interpretation and review of laboratory results Normal [facility] TSH Qn 1.04 m[IU]/L [facility] Basic Metabolic Panel w/ Ref ray to MGon 03-23-2021 Anion gap [Moles/Vol] 13 mmol/L 9 - 17 mmol/L [facility] Calcium [Mass/Vol] 8.8 mg/dL 8.6 - 10. 4 mg/dL [facility] Chloride [Moles/Vol] 104 mmol/L 98 - 10 7 mmol/L [facility] [employer] CO2 [Moles/Vol] 21 mmol/L 20 - 31 mmol/L [facility] Creatinine [Mass/Vol] 0.65 mg/dL 0.50 - 0.90 mg/dL [facility] GFR >60 >60 mL/min [place] GFR Non- >60 >60 mL/min [facility] GFR/1.73 sq M.predicted MDRD (S/P/Bld) [Vol rate/Area] [facility] Comment on above: Average GFR for 30-3 9 years old: 107 mL/min/1.73sq m Chronic Kidney Disease: <60 mL/min/1.73sq m Kidney failure: <15 mL/min/1.73sq m eGFR calculated using average adult body mass. Additional eGFR calculator available at: http://www.[employer]/multiple_crcl_2012.htm GFR/1.73 sq M.predicted MDRD (S/P/Bld) [Vol rate/Area] NOT REPORTED [facility] Glucose [Mass/Vol] 104 mg/dL High 70 - 99 mg/dL [facility] Interpretation and review of laboratory results Abnormal [facility] th Potassium [Moles/Vol] 3.7 mmol/L 3.7 - 5.3 mmol/L [facility] Sodium [Moles/Vol] 138 mmol/L 135 - 144 mmol/L [facility] Urea nitrogen (BldV) [Mass/Vol] 15 mg/dL 6 - 20 mg/dL [facility] Urea nitrogen/Creatinine (Bld) [Mass ratio] 23 High [facility] CBC Auto Differentialon 03-07 Absolute Eos # 0.10 [facility] th Absolute Immature Granulocyte NOT REPORTED [facility] Absolute Lymph # 0.60 Low [facility] alth Absolute [place] # [facility].50 [facility] Basophils (Bld) [#/Vol] 0.00 10*3/uL [facility] Basophils/100 WBC (Bld) 0 % 0 - 2 % [place] Differential Type YES [facility]alth Eosinophils/100 WBC (Bld) 2 % 0 - 5 % [facility] Hematocrit (Bld) [Volume fraction] 34.6 % Low 36 - 46 % [facility] Hemoglobin.gastrointestin al spec 1 Ql (Stl) 11.7 g/dL Low 12.0 - 16.0 g/dL [facility] Immature Granulocytes NOT REPORTED 0 % [place] Interpretation and review of laboratory results Abnormal [facility] Lymphocytes/100 WBC (Bld) 13 % Low 15 - 40 % [facility] MCH (RBC) [Entitic mass] 26.4 pg 26 - 34 pg [facility] MCHC (RBC) [Mass/Vol] 33.8 g/dL 31 - 3 7 g/dL [facility] MCV (RBC) [Entitic vol] 78.2 fL Low 80 - 100 fL [facility] Monocytes/100 WBC (Bld) 10 % High 4 - 8 % [place] NRBC Automated NOT REPORTED per 100 WBC [facility] Platelet distribution width (Bld) [Ratio] 14.4 % 12.1 - 15.2 % [facility] Platelet Estimate NOT REPORTED [facility] Platelet mean volume (Bld) [Entitic vol] NOT REPORTED 6.0 - 12.0 fL [facility] Platelets (Bld) [#/Vol] 259 10*3/uL [facility] RBC (Bld) [#/Vol] 4.43 10*6/uL 4.0 - 5.2 m/uL [facility] RBC (Bld) [#/Vol] NOT REPORTED [facility] Segmented neutrophils/100 WBC (Bld) 75 % 47 - 75 % [facility] [#/Vol] 4.8 10*3/uL [facility] WBC (Bld) [#/Vol] NOT REPORTED [facility] COVID-19, Rapidon 03-23-2021 Interpretation and review of laboratory results Abnormal [facility] SARS-CoV-2 (COVID-19) RNA KALPESH+probe Ql (Unsp spec) Detected Abnormal Not Detected [facility] Comment on above: Rapid NAAT: The [...] this assay. Fact sheet for Healthcare Providers: https://www.fda.gov/media/213699/download Fact sheet for Patients: https://www.fda.gov/media/754127/download Methodology: Isothermal Nucleic Acid Amplification Results reported to the appropriate Health Department Specimen Description .NASOPHARYNGEAL SWAB [facility] No Panel Informationon 03-23 Direct Exam Negative [facility] Rapid influenza A/B antigens on 03-23-2021 Special Requests NOT REPORTED [facility] Specimen Description .NASOPHARYNGEAL SWAB [facility] COVID-19, RapidOrdered By: Shayy Springer on 12-27-2020 SARS-CoV-2 (COVID-19) RNA KALPESH+probe Ql (Unsp spec) Not detected Not Detected [facility] Work Phone: Comment on above: Rapid [...] management decisions. Fact sheet for Healthcare Providers: https://www.fda.gov/media/509587/download Fact sheet for Patients: https://www.fda.gov/media/476540/download Methodology: Isothermal Nucleic Acid Amplification Specimen Description .NASOPHARYNGEAL SWAB [employer] Phone: [employer] Phone: Strep Screen Group A ThroatO rdered By: Wayne Springer on 12-27-2020 S. pyogenes Ag IA Ql (Unsp spec) Rapid Strep A negative. A negative Rapid Group A Strep Screen result does not rule out the possibility of Group A Streptococci in the specimen. A Group A Strep DNA test is available upon request. [employer] Phone: Special Requests NOT REPORTED [employer] Phone: Specimen Description .THROAT [employer] Phone: [employer] Phone: XR SHOULDER RIGHT (MIN 2 VIE WS)Ordered By: Anuj Quinn on 11-20-2020 No acute fracture or traumatic malalignment. [employer] Phone: EXAMINATION: XR SHOULDER RIGHT (MIN 2 VIEWS), , 11/20/2020 9:30 PM EDT INDICATION: Reason for exam:->shoulder pain HISTORY: Ordering Provider Reason for Exam: Technologist Note: Additional: COMPARISON: None. TECHNIQUE: Right shoulder x-ray: 3 view(s). FINDINGS: No acute fracture. Glenohumeral and acromioclavicular joints are anatomically aligned. Joint spaces are preserved. Soft tissues are unremarkable. [employer] Phone: Ward, pn Incoming Radiant Results From [employer] - 11/20/2020 9:55 PM EDT EXAMINATION: XR [...] IMPRESSION: No acute fracture or traumatic malalignment. [employer] Work Phone: [employer] Work Phone: COVID-19, MOLECULARon 2020 SARS-CoV-2 (COVID-19) RNA KALPESH+probe Ql (Unsp spec) Not detected Normal Not Detected [facility] Comment on above: Order Comment: : COV ID-19 Lab Test Only (OP in UTM) Result Comment: This test was performed under the FDA's Emergency Use Authorization (EUA). Testing was performed using the Dveika SARS-CoV-2 RT-PCR assay on the [employer] Devika 6800 System. This test has not been approved for use in asymptomatic patients and its performance in this patient population has not been evaluated. Negative results do not rule out the presence of SARS-CoV-2/COVID-19. Fact sheets for this EUA can be found at the following links: For Healthcare Providers: https://www.fda.gov/media/891291/download For Patients: https://www.fda.gov/media/650480/download Performed By: #### L [id number] #### [facility] [address] [place] [address] Joe Rider M.D. [id number] HbA1c (Bld) [Mass fraction]O rdered By: Zelda Bautista on 07-09-2020 Interpretation and review of laboratory results Normal [facility] POC Hemoglobin [id number] By : Zelda Bautista on 07-09-2020 HbA1c (Bld) [Mass fraction] 5.2 % 4.0 - 6.0 % [facility] HbA1c (Bld) [Mass fraction]O rdered By: Lelo Gallegos on 06-09-2020 Interpretation and review of laboratory results Normal [facility] POC Hemoglobin [id number] By : Lelo Gallegos on 06-09-2020 HbA1c (Bld) [Mass fraction] 5.6 % 4.0 - 6.0 % [facility] CBC Auto Differentialon 03-08 Basophils (Bld) [#/Vol] 0.00 10*3/uL [place] Basophils/100 WBC (Bld) 0 % 0 - 2 % [place] Differential Type YES [place] Eosinophils (Bld) [#/Vol] 0.10 10*3/uL [place] Eosinophils/100 WBC (Bld) 1 % 0 - 5 % [place] Erythrocyte distribution width (RBC) [Ratio] 14.2 % 12.1 - 15.2 % [place] Hematocrit (Bld) [Volume fraction] 36.1 % 36 - 46 % [place] Hemoglobin (Bld) [Mass/Vol] 12.5 g/dL 12 - 16 g/dL [place] Interpretation and review of laboratory results Abnormal [place] Lymphocytes (Bld) [#/Vol] 2.00 10*3/uL [place] Lymphocytes/100 WBC (Bld) 14 % Low 15 - 40 % [place] MCH (RBC) [Entitic mass] 30.6 pg 26 - 34 pg [place] MCHC (RBC) [Mass/Vol] 34.5 g/dL 31 - 3 7 g/dL [place] MCV (RBC) [Entitic vol] 88.5 fL 80 - 100 fL [place] Monocytes (Bld) [#/Vol] 0.80 10*3/uL [place] Monocytes/100 WBC (Bld) 6 % 4 - 8 % [place] Platelet mean volume (Bld) [Entitic vol] NOT REPORTED 6 - 12 fL [place] Platelets (Bld) [#/Vol] 300 10*3/uL [place] Platelets (Bld) [#/Vol] NOT REPORTED [place] RBC (Bld) [#/Vol] 4.08 10*6/uL 4 - 5.2 m/uL [place] RBC morphology finding Nom (Bld) NOT REPORTED [place] Segmented neutrophils/100 WBC (Bld) 79 % High 47 - 75 % [place] Segs Absolute 10.70 [place] WBC (Bld) [#/Vol] 13.6 10*3/uL [place] WBC (Bld) [#/Vol] NOT REPORTED per 100 WBC [place] WBC Morphology NOT REPORTED [place] COVID-19, PCRon 03-26-2020 SARS-CoV-2, Rapid Not Detected Not Detected [place] Comment on above: Rapid NAAT: The [...] management decisions. Fact sheet for Healthcare Providers: https://www.fda.gov/media/108549/download Fact sheet for Patients: https://www.fda.gov/media/176116/download Methodology: Isothermal Nucleic Acid Amplification Source .THROAT [place] Comprehensive Metabolic Pane l w/ Reflex to MGon 03-26-2020 Albumin [Mass/Vol] 3.3 g/dL Low 3.5 - 5.2 g/dL [place] Albumin/Globulin [Mass ratio] NOT REPORTED [place] ALP [Catalytic activity/Vol] 57 U/L 35 - 104 U/L [place] ALT [Catalytic activity/Vol] U/L Low 5 - 33 U/L [place] Anion gap [Moles/Vol] 11 mmol/L 9 - 17 mmol/L [place] AST [Catalytic activity/Vol] 9 U/L <32 [place] Bilirubin Ql (U) 0.10 mg/dL Low 0.3 - 1.2 mg/dL [place] Bun/Cre Ratio 21 High [place] Calcium [Mass/Vol] 10.2 mg/dL 8.6 - 10. 4 mg/dL [place] Chloride [Moles/Vol] 104 mmol/L 98 - 10 7 mmol/L [place] CO2 [Moles/Vol] 21 mmol/L 20 - 31 mmol/L [place] Creatinine [Mass/Vol] 0.42 mg/dL Low 0.5 - 0.9 mg/dL [place] GFR >60 >60 mL/min [place] GFR Non- >60 >60 mL/min [place] GFR/1.73 sq M predicted among non-blacks MDRD (S/P/Bld) [Vol rate/Area] NOT REPORTED [place] GFR/1.73 sq M predicted among non-blacks MDRD (S/P/Bld) [Vol rate/Area] [place] Comment on above: Average GFR for 30-3 9 years old: 107 mL/min/1.73sq m Chronic Kidney Disease: <60 mL/min/1.73sq m Kidney failure: <15 mL/min/1.73sq m eGFR calculated using average adult body mass. Additional eGFR calculator available at: http://www.[employer]/multiple_crcl_2012.htm Glucose [Mass/Vol] 100 mg/dL High 70 - 99 mg/dL [place] Interpretation and review of laboratory results Abnormal [place] Potassium [Moles/Vol] 3.8 mmol/L 3.7 - 5.3 mmol/L [place] Protein [Mass/Vol] 6.5 g/dL 6.4 - 8.3 g/dL [place] Sodium [Moles/Vol] 136 mmol/L 135 - 144 mmol/L [place] Urea nitrogen [Mass/Vol] 9 mg/dL 6 - 20 mg/dL [place] Otheron 03-26-2020 SARS-CoV-2 [place] Immature granulocytes (Bld) [#/Vol] NOT REPORTED [place] Urinalysis, reflex to micros copicon 03-26-2020 Bilirubin U[facility] [place] Color, UA YELLOW YELLOW [place] Glucose, Ur Negative NEGATIVE [place] Ketones Ql (U) Negative NEGATIVE [place] Leukocyte esterase Test strip Ql (U) Negative NEGATIVE [place] Nitrite, Urine Negative NEGATIVE [place] pH, UA 7.0 [place] Protein (U) [Mass/Vol] Negative NEGATIVE [place] Specific [place], UA 1.010 [place], [place] Turbidity UA CLEAR CLEAR [place] Urinalysis Comments [place] Urine Hgb Negative NEGATIVE [place] Urobilinogen, Urine Normal Normal [place] Wet Prep, Genitalon 11-20-19 Direct Exam MODERATE EPITHELIAL CELLS Abnormal [place] Direct Exam FEW TRICHOMONAS SEEN Abnormal [place] Direct Exam MODERATE BACTERIA Abnormal [place] Direct Exam Few epithelials coated with bacteria resembling clue cells. Abnormal [place] Direct Exam NO FUNGAL ELEMENTS SEEN [place] Interpretation and review of laboratory results Abnormal [place] Special Requests NOT REPORTED [place] Specimen Description .VAGINAL SPECIMEN [place] WBC (Bld) [#/Vol] FEW WBC SEEN Abnormal [place] Basic Metabolic Panelon 06-05 Anion gap [Moles/Vol] 15 mmol/L 10 - 2 0 mmol/L [facility] Calcium [Mass/Vol] 8.6 mg/dL 8.4 - 10. 2 mg/dL [facility] Chloride [Moles/Vol] 102 mmol/L 98 - 10 8 mmol/L [facility] Creatinine [Mass/Vol] 0.36 mg/dL Low 0.40 - 1.10 [facility] GFR/1.73 sq M predicted among non-blacks MDRD (S/P/Bld) [Vol rate/Area] The eGFR should be used for monitoring renal function only and not for medication dosing. [facility] GFR/1.73 sq M.predicted CKD-EPI (S/P/Bld) [Vol rate/Area] 146 >=60 mL/min/1.73 m2 [facility] Glucose [Mass/Vol] 102 mg/dL High 65 - 99 mg/dL [facility] HCO3 [Moles/Vol] 25 mmol/L 21 - 32 mmol/L [facility] Interpretation and review of laboratory results Abnormal [facility] Potassium [Moles/Vol] 4.1 mmol/L 3.5 - 5.1 mmol/L [facility] Sodium [Moles/Vol] 138 mmol/L 135 - 145 mmol/L [facility] Urea nitrogen [Mass/Vol] 5 mg/dL Low 8 - 25 mg/dL [facility] Urea nitrogen/Creatinine [Mass ratio] 13.9 mg/mg [facility] Hepatic Function Panelon Albumin [Mass/Vol] 3.3 g/dL 3.2 - 5.2 g/dL [facility] ALP [Catalytic activity/Vol] 253 U/L High 40 - 140 U/L [facility] ALT [Catalytic activity/Vol] 686 U/L High 0 - 40 U/L [facility] AST [Catalytic activity/Vol] 349 U/L High 0 - 45 U/L [facility] Bilirubin [Mass/Vol] 6.0 mg/dL High 0 - 1.3 mg/dL [facility] Bilirubin.conjugated [Mass/Vol] 5.1 mg/dL High 0 - 0.4 mg/dL [facility] Interpretation and review of laboratory results Abnormal [facility] Protein [Mass/Vol] 6.8 g/dL 6 - 8 g/dL [facility] alth Bilirubin, Directon 06-16-19 20 Bilirubin.conjugated [Mass/Vol] 5.4 mg/dL High 0 - 0.4 mg/dL [facility] Interpretation and review of laboratory results Abnormal [facility] CBCon 06-16-2019 Erythrocyte distribution width (RBC) [Entitic vol] 15.1 % High 11.6 - 14.8 % [facility] Hematocrit (Bld) [Volume fraction] 38.5 % 36 - 46 % [facility] Hemoglobin (Bld) [Mass/Vol] 12.9 g/dL 12 - 16 g/dL [facility] Interpretation and review of laboratory results Abnormal [facility] MCH (RBC) [Entitic mass] 29.1 pg 26 - 34 pg [facility] MCHC (RBC) [Mass/Vol] 33.5 g/dL 31 - 3 7 g/dL [facility] MCV (RBC) [Entitic vol] 86.9 fL 80 - 100 fL [facility] Nucleated RBC (Bld) [#/Vol] 0.00 10*3/uL [facility] Nucleated RBC/100 WBC (Bld) [Ratio] 0.0 % [facility] Platelet mean volume (Bld) [Entitic vol] 11.3 fL 9 - 15.5 fL [facility] Platelets (Bld) [#/Vol] 185 10*3/uL [facility] RBC (Bld) [#/Vol] 4.43 10*6/uL [facility] WBC (Bld) [#/Vol] 6.48 10*3/uL [facility] Comprehensive Metabolic Pane cayden 06-16-2019 Albumin [Mass/Vol] 3.3 g/dL 3.2 - 5.2 g/dL [facility] ALP [Catalytic activity/Vol] 217 U/L High 40 - 140 U/L [facility] ALT [Catalytic activity/Vol] 825 U/L High 0 - 40 U/L [facility] Anion gap [Moles/Vol] 14 mmol/L 10 - 2 0 mmol/L [facility] AST [Catalytic activity/Vol] 544 U/L High 0 - 45 U/L [facility] Bilirubin [Mass/Vol] 5.9 mg/dL High 0 - 1.3 mg/dL [facility] Calcium [Mass/Vol] 8.4 mg/dL 8.4 - 10. 2 mg/dL [facility] Chloride [Moles/Vol] 103 mmol/L 98 - 10 8 mmol/L [facility] Creatinine [Mass/Vol] 0.32 mg/dL Low 0.40 - 1.10 [facility] GFR/1.73 sq M predicted among non-blacks MDRD (S/P/Bld) [Vol rate/Area] The eGFR should be used for monitoring renal function only and not for medication dosing. [facility] GFR/1.73 sq M.predicted CKD-EPI (S/P/Bld) [Vol rate/Area] 152 >=60 mL/min/1.73 m2 [facility] Glucose [Mass/Vol] 92 mg/dL 65 - 99 mg/dL [facility] HCO3 [Moles/Vol] 26 mmol/L 21 - 32 mmol/L [facility] Interpretation and review of laboratory results Abnormal [facility] Potassium [Moles/Vol] 4.3 mmol/L 3.5 - 5.1 mmol/L [facility] Protein [Mass/Vol] 6.2 g/dL 6 - 8 g/dL [facility] alth Sodium [Moles/Vol] 139 mmol/L 135 - 145 mmol/L [facility] Urea nitrogen [Mass/Vol] 4 mg/dL Low 8 - 25 mg/dL [facility] Urea nitrogen/Creatinine [Mass ratio] 12.5 mg/mg [facility] Bilirubin, Directon 06-15-19 20 Bilirubin.conjugated [Mass/Vol] 4.7 mg/dL High 0 - 0.4 mg/dL [facility] Interpretation and review of laboratory results Abnormal [facility] CBCon 06-15-2019 Erythrocyte distribution width (RBC) [Entitic vol] 14.8 % 11.6 - 14.8 % [facility] Hematocrit (Bld) [Volume fraction] 38.5 % 36 - 46 % [facility] Hemoglobin (Bld) [Mass/Vol] 12.6 g/dL 12 - 16 g/dL [facility] MCH (RBC) [Entitic mass] 29.0 pg 26 - 34 pg [facility] MCHC (RBC) [Mass/Vol] 32.7 g/dL 31 - 3 7 g/dL [facility] MCV (RBC) [Entitic vol] 88.5 fL 80 - 100 fL [facility] Nucleated RBC (Bld) [#/Vol] 0.00 10*3/uL [facility] Nucleated RBC/100 WBC (Bld) [Ratio] 0.0 % [facility] Platelet mean volume (Bld) [Entitic vol] 11.0 fL 9 - 15.5 fL [facility] Platelets (Bld) [#/Vol] 155 10*3/uL [facility] RBC (Bld) [#/Vol] 4.35 10*6/uL [facility] WBC (Bld) [#/Vol] 5.74 10*3/uL [facility] Comprehensive Metabolic Pane cayden 06-15-2019 Albumin [Mass/Vol] 3.2 g/dL 3.2 - 5.2 g/dL [facility] ALP [Catalytic activity/Vol] 193 U/L High 40 - 140 U/L [facility] ALT [Catalytic activity/Vol] 888 U/L High 0 - 40 U/L [facility] Anion gap [Moles/Vol] 15 mmol/L 10 - 2 0 mmol/L [facility] AST [Catalytic activity/Vol] 667 U/L High 0 - 45 U/L [facility] Bilirubin [Mass/Vol] 5.2 mg/dL High 0 - 1.3 mg/dL [facility] Calcium [Mass/Vol] 8.2 mg/dL Low 8.4 - 10. 2 mg/dL [facility] Chloride [Moles/Vol] 103 mmol/L 98 - 10 8 mmol/L [facility] Creatinine [Mass/Vol] 0.36 mg/dL Low 0.40 - 1.10 [facility] GFR/1.73 sq M predicted among non-blacks MDRD (S/P/Bld) [Vol rate/Area] The eGFR should be used for monitoring renal function only and not for medication dosing. [facility] GFR/1.73 sq M.predicted CKD-EPI (S/P/Bld) [Vol rate/Area] 146 >=60 mL/min/1.73 m2 [facility] Glucose [Mass/Vol] 122 mg/dL High 65 - 99 mg/dL [facility] HCO3 [Moles/Vol] 22 mmol/L 21 - 32 mmol/L [facility] Interpretation and review of laboratory results Abnormal [facility] Potassium [Moles/Vol] 3.8 mmol/L 3.5 - 5.1 mmol/L [facility] Protein [Mass/Vol] 5.8 g/dL Low 6 - 8 g/dL [facility] alth Sodium [Moles/Vol] 136 mmol/L 135 - 145 mmol/L [facility] Urea nitrogen [Mass/Vol] 5 mg/dL Low 8 - 25 mg/dL [facility] Urea nitrogen/Creatinine [Mass ratio] 13.9 mg/mg [facility] NM HEPATOBILIARY WO EJECTION FRACTIONon 06-15-2019 [...] and small bowel are not visualized. [facility] Opacified liver with no visualization of [...] regarding the presence or absence of cholecystitis. [employer] Work[employer] ID: [id number] [facility] Interface, Rad In [employer] Speechq - [...] regarding the presence or absence of cholecystitis. [employer] Work[employer] ID: [id number] [facility] APTTon 06-14-2019 aPTT Coag (Bld) [Time] 31.1 s [facility] [place], [place] Comment on above: PTT Therapeutic Range: 61.7-88.4 Therapeutic range corresponds to plasma heparin levels of 0.3-0.7 U/mL. Acetaminophen Levelon 2019 Acetaminophen [Mass/Vol] 9.1 [facility] Interpretation and review of laboratory results Normal [facility] Bilirubin, Directon 06-14-19 20 Bilirubin.conjugated [Mass/Vol] 4.3 mg/dL High 0 - 0.4 mg/dL [facility] Interpretation and review of laboratory results Abnormal [facility] CBC WITH AUTO DIFFERENTIALon 06-14-2019 Erythrocyte distribution width (RBC) [Entitic vol] 14.5 % 11.6 - 14.8 % [facility] Hematocrit (Bld) [Volume fraction] 34.6 % Low 36 - 46 % [facility] Hemoglobin (Bld) [Mass/Vol] 11.6 g/dL Low 12 - 16 g/dL [facility] Interpretation and review of laboratory results Abnormal [facility] MCH (RBC) [Entitic mass] 29.7 pg 26 - 34 pg [facility] MCHC (RBC) [Mass/Vol] 33.5 g/dL 31 - 3 7 g/dL [facility] MCV (RBC) [Entitic vol] 88.5 fL 80 - 100 fL [facility] Nucleated RBC (Bld) [#/Vol] 0.00 10*3/uL [facility] Nucleated RBC/100 WBC (Bld) [Ratio] 0.0 % [facility] Platelet mean volume (Bld) [Entitic vol] 10.8 fL 9 - 15.5 fL [facility] Platelets (Bld) [#/Vol] 172 10*3/uL [facility] RBC (Bld) [#/Vol] 3.91 10*6/uL Low [facility] WBC (Bld) [#/Vol] 7.28 10*3/uL [facility] e[facility] CT ABDOMEN PELVIS W IV CONTR AST Additional Contrast? Noneon 06-14-2019 Ward, pn Incoming Radiant Results From [employer] - 06/14/2019 12:27 AM EDT EXAMINATION: CT [...] liver function panel and consider ultrasound imaging. [place] Pericholecystic fluid versus gallbladder wall thickening and additional periportal edema. There are no visualized stones in the gallbladder gallbladder and/or hepatic pathology are suspected. Correlate with liver function panel and consider ultrasound imaging. [place] EXAMINATION: CT ABDOMEN PELVIS W IV [...] structures demonstrate no acute or concerning abnormality. [facility] [place] [place] CT COMPARISON IMPORTon 06-13 This order has been auto-finalized and does not contain a result. [facility] Comprehensive Metabolic Pane cayden 06-14-2019 Albumin [Mass/Vol] 3.0 g/dL Low 3.2 - 5.2 g/dL [facility] ALP [Catalytic activity/Vol] 183 U/L High 40 - 140 U/L [facility] ALT [Catalytic activity/Vol] 808 U/L High 0 - 40 U/L [facility] Anion gap [Moles/Vol] 16 mmol/L 10 - 2 0 mmol/L [facility] AST [Catalytic activity/Vol] 592 U/L High 0 - 45 U/L [facility] Bilirubin [Mass/Vol] 4.9 mg/dL High 0 - 1.3 mg/dL [facility] Calcium [Mass/Vol] 8.4 mg/dL 8.4 - 10. 2 mg/dL [facility] Chloride [Moles/Vol] 104 mmol/L 98 - 10 8 mmol/L [facility] Creatinine [Mass/Vol] 0.43 mg/dL 0.40 - 1.10 [facility] GFR/1.73 sq M predicted among non-blacks MDRD (S/P/Bld) [Vol rate/Area] The eGFR should be used for monitoring renal function only and not for medication dosing. [facility] GFR/1.73 sq M.predicted CKD-EPI (S/P/Bld) [Vol rate/Area] 138 >=60 mL/min/1.73 m2 [facility] Glucose [Mass/Vol] 79 mg/dL 65 - 99 mg/dL [facility] HCO3 [Moles/Vol] 21 mmol/L 21 - 32 mmol/L [facility] Interpretation and review of laboratory results Abnormal [facility] Potassium [Moles/Vol] 3.8 mmol/L 3.5 - 5.1 mmol/L [facility] Protein [Mass/Vol] 5.7 g/dL Low 6 - 8 g/dL [facility] alth Sodium [Moles/Vol] 137 mmol/L 135 - 145 mmol/L [facility] Urea nitrogen [Mass/Vol] 9 mg/dL 8 - 25 mg/dL [facility] Urea nitrogen/Creatinine [Mass ratio] 20.9 mg/mg High [facility] DRUGS OF ABUSE SCREEN, URINE on 06-14-2019 Amphetamines Ql (U) None Detected None Detected [facility] Comment on above: Urine Amphetamine Cu toff: < 1000 ng/mL = None Detected Barbiturates Screen Ql (U) None Detected None Detected [facility] Comment on above: Urine Barbiturates C utoff: < 200 ng/mL = None Detected Benzodiazepines Ql (U) None Detected None Detected [facility] Comment on above: Urine Benzodiazepine Cutoff: < 300 ng/mL = None Detected Cannabinoids Screen Ql (U) None Detected None Detected [facility] Comment on above: Urine Cannabinoids C utoff: < 50 ng/mL = None Detected Cocaine Ql (U) Positive Abnormal None Detected [facility] Comment on above: Urine Cocaine Cutoff : < 300 ng/mL = None Detected Interpretation and review of laboratory results Abnormal [facility] Methadone Screen Ql (U) None Detected Non e Detected [facility] Comment on above: Urine Methadone Cuto ff: < 300 ng/mL = None Detected Opiates Screen Ql (U) None Detected None Detected [facility] Comment on above: Urine Opiates Cutoff : < 300 ng/mL = None Detected Oxycodone Ql (U) None Detected None Detected [facility] Comment on above: Urine Oxycodone Cuto ff: < 100 ng/mL = None Detected Screen results should be used for treatment purposes only. Specimen will be kept for 2 weeks, if the sample is adequate. Confirmation testing can be initiated by calling the lab within 2 weeks. [facility] HEPATITIS PANEL, ACUTEon HAV IgM Ql (S) Negative Negative [facility] HBV core IgM Ql (S) Negative Negative [facility] surface Ag Ql (S) Negative Negative [facility] HCV Ab Ql (S) Positive Abnormal Negative [facility] Comment on above: A positive antibody test requires additional follow-up testing, Hepatitis C Virus Quantitation, to determine if a person is currently infected with Hepatitis C. Interpretation and review of laboratory results Abnormal [facility] Test performed using [employer] DEVIKA immunoassay system [facility] Lactic Acid, Plasmaon 2019 Interpretation and review of laboratory results Normal [facility] Lactate [Moles/Vol] 0.8 mmol/L 0.6 - 2 mmol/L [facility] MORPHOLOGYon 06-14-2019 Platelets LM Ql (Bld) Normal Normal [facility] RBC morphology finding Nom (Bld) Normal [facility] MR MRCPon 06-14-2019 EXAMINATION: MR MRCP [...] Axial T1-weighted images were obtained in- and [id number]. Axial diffusion-weighted imaging was also performed. FINDINGS: The liver overall appears enlarged with the right hepatic lobe measuring 22.6 cm fuusfzso-jp-sjykmgj r. The spleen measures 14.6 cm soixezgz-yi-fbatwef r and is also mildly enlarged. There [...] right kidney. Bowel pattern is nonobstructive. [facility] 1. Re-demonstration of diffuse periportal edema as well as significant circumferential gallbladder wall edema similar to that seen on prior CT study. 2. Mild hepatosplenomegaly. 3. No obvious gallstones. Negative for biliary or pancreatic ductal dilatation. Negative for choledocholithiasis . 4. Trace volume of abdominal ascites. [email or web address] Workstation ID: [id number] [facility] Interface, Rad In Asif Chavis - [...] Axial T1-weighted images were obtained in- and kuo-pi-qepkm. Axial diffusion-weighted imaging was also performed. FINDINGS: The liver overall appears enlarged with the right hepatic lobe measuring 22.6 cm siavrupt-qr-rzcoaqk r. The spleen measures 14.6 cm qiarihdo-qu-viuibkj r and is also mildly enlarged. There [...] . 4. Trace volume of abdominal ascites. [email or web address] Workstation ID: [id number] [facility] Manual Differentialon 2019 Basophils (Bld) [#/Vol] 0.00 10*3/uL [facility] Basophils/100 WBC (Bld) 0.0 % [facility] Eosinophils (Bld) [#/Vol] 0.00 10*3/uL [facility] Eosinophils/100 WBC (Bld) 0.0 % [facility] Lymphocytes (Bld) [#/Vol] 3.28 10*3/uL [facility] Lymphocytes/100 WBC (Bld) 37.0 % [facility] Monocytes (Bld) [#/Vol] 0.44 10*3/uL [facility] Monocytes/100 WBC (Bld) 6.0 % [facility] Neutrophils (Bld) [#/Vol] 3.57 10*3/uL [facility] Neutrophils/100 WBC (Bld) 49.0 % [facility] Variant lymphocytes/100 WBC (Bld) 8.0 % [facility] PT/INRon 06-14-2019 INR Coag (PPP) [Relative time] 1.3 {INR} [facility] Interpretation and review of laboratory results Abnormal [facility] PT Coag (PPP) [Time] 15.5 s [facility] During the induction phase of oral anticoagulation, the INR may not reflect the anticoagulation status of the patient. Therapeutic ranges for INR's are: Most clinical situations: INR 2.0-3.0 Mechanical Prosthetic Valve: INR 2.5-3.5 Critical: INR >5.0 [facility] Protime-INRon 06-14-2019 INR Coag (PPP) [Relative time] 1.2 {INR} [facility] [place] Comment on above: * THERAPY INDICATIONS * REFERENCE RANGES Pts not on anti-coagulants 1.0 - 1.5 INR Low risk pts on anti-coagulants 2.0 - 3.0 INR High risk pts on anti-coagulants 2.5 - 3.5 INR Prevention of atrial thrombo-embolism 3.0 - 4.5 INR Interpretation and review of laboratory results Abnormal [facility] [place] [place] PT Coag (PPP) [Time] 11.7 s [facility] [place] Salicylate Levelon 0 Interpretation and review of laboratory results Abnormal [facility] Salicylates [Mass/Vol] mg/dL Low 10 - 20 mg/dL [facility] URINALYSISon 06-14-2019 Bacteria Auto Ql (U) Rare Abnormal None Se en /hpf [facility] Bilirubin Ql (U) Positive Abnormal Negative [facility] Comment on above: False positive urine bilirubins can occur in the setting of a large amount of hemoglobin and secondary to medications including anti-inflammatory agents, rifampin, and pyridium. Clarity Refractometry automated (U) Clear Clear [facility] Color (U) Erica Abnormal Colorless, Yellow [facility] Epithelial cells.squamous Auto (Urine sed) [#/Area] 4 [facility] alth Glucose Auto test strip (U) [Mass/Vol] Negative Negative mg/dL [facility] Hemoglobin Auto test strip Ql (U) Negative Negative [facility] Interpretation and review of laboratory results Abnormal [facility] Ketones (U) [Mass/Vol] >=80 Abnormal Negat krystal mg/dL [facility] Leukocyte esterase Auto test strip Ql (U) Negative Negative [facility] Mucus Auto (Urine sed) [#/Area] Rare None Seen, Rare /lpf [facility] Nitrite Auto test strip Ql (U) Negative Negative [facility] pH (U) 6.0 [pH] [facility] Protein (U) [Mass/Vol] 30 Abnormal Negat krystal mg/dL [facility] Comment on above: False positive resul ts may occur in urines with large amounts of hemoglobin, pH greater than 8.0, contrast medium, or disinfectants including ammonium compounds. RBC Auto (Urine sed) [#/Area] 2 [facility] Specific gravity (U) [Rel density] 1.028 High [facility] Urobilinogen (U) [Mass/Vol] >=4.0 Abnormal <2.0 mg/dL [facility] WBC Auto (Urine sed) [#/Area] 2 [facility] Microscopic examination is performed on all urinalysis samples and only positive findings are reported. The test for blood on the chemical analytic portion of urinalysis may also be positive due to hemoglobinuria and myoglobinuria and if red blood cells are present they are quantified by microscopic examination. [facility] US ABDOMEN LIMITED STUDYon 0 06-14-2019 [...] liver likely small hemangioma. Workstation ID: [id number] [employer] EXAMINATION: US ABDOMEN LIMITED STUDY HISTORY: RUQ [...] 10.7 cm in length. No hydronephrosis. [facility] 1. Contracted gallbladder limits evaluation. No cholelithiasis identified. Nonspecific edematous gallbladder wall thickening and reported positive sonographic Short's sign, cannot exclude acalculus cholecystitis. No biliary ductal dilatation. 2. 1.3 cm echogenic lesion left lobe of the liver likely small hemangioma. Workstation ID: [id number] [facility] Amylaseon 06-13-2019 Amylase [Catalytic activity/Vol] 22 U/L Low 28 - 100 U/L [place] CBC Auto Differentialon Basophils (Bld) [#/Vol] 0.00 10*3/uL [place] Basophils/100 WBC (Bld) 1 % 0 - 2 % [place] Differential Type YES [place] Eosinophils (Bld) [#/Vol] 0.00 10*3/uL [place] Eosinophils/100 WBC (Bld) 0 % 0 - 5 % [place] Erythrocyte distribution width (RBC) [Ratio] 14.9 % 12.1 - 15.2 % [place] Hematocrit (Bld) [Volume fraction] 43.3 % 36 - 46 % [place] Hemoglobin (Bld) [Mass/Vol] 14.3 g/dL 12 - 16 g/dL [place] Lymphocytes (Bld) [#/Vol] 2.50 10*3/uL [place] Lymphocytes/100 WBC (Bld) 30 % 15 - 40 % [place] MCH (RBC) [Entitic mass] 28.8 pg 26 - 34 pg [place] MCHC (RBC) [Mass/Vol] 33.1 g/dL 31 - 3 7 g/dL [place] MCV (RBC) [Entitic vol] 87.2 fL 80 - 100 fL [place] Monocytes (Bld) [#/Vol] 0.70 10*3/uL [place] Monocytes/100 WBC (Bld) 8 % 4 - 8 % [place] Platelet mean volume (Bld) [Entitic vol] NOT REPORTED 6 - 12 fL [place] Platelets (Bld) [#/Vol] 203 10*3/uL [place] Platelets (Bld) [#/Vol] NOT REPORTED [place] RBC (Bld) [#/Vol] 4.97 10*6/uL 4 - 5.2 m/uL [place] RBC morphology finding Nom (Bld) NOT REPORTED [place] Segmented neutrophils/100 WBC (Bld) 61 % 47 - 75 % [place] Segs Absolute 5.20 [place] WBC (Bld) [#/Vol] 8.4 10*3/uL [place] WBC (Bld) [#/Vol] NOT REPORTED per 100 WBC [place] WBC Morphology NOT REPORTED [place] Comprehensive Metabolic Pane l w/ Reflex to MGon 06-13-2019 Albumin [Mass/Vol] 4.1 g/dL 3.5 - 5.2 g/dL [place] Albumin/Globulin [Mass ratio] NOT REPORTED [place] ALP [Catalytic activity/Vol] 255 U/L High 35 - 104 U/L [place] ALT [Catalytic activity/Vol] 1116 U/L High 5 - 33 U/L [place] Anion gap [Moles/Vol] 17 mmol/L 9 - 17 mmol/L [place] AST [Catalytic activity/Vol] 665 U/L High <32 [place] Bilirubin Ql (U) 6.52 mg/dL High 0.3 - 1.2 mg/dL [place] Bun/Cre Ratio 17 [place] Calcium [Mass/Vol] 10.1 mg/dL 8.6 - 10. 4 mg/dL [place] Chloride [Moles/Vol] 95 mmol/L Low 98 - 10 7 mmol/L [place] CO2 [Moles/Vol] 24 mmol/L 20 - 31 mmol/L [place] Creatinine [Mass/Vol] 0.82 mg/dL 0.5 - 0.9 mg/dL [place] GFR >60 >60 mL/min [place] GFR Non- >60 >60 mL/min [place] GFR/1.73 sq M predicted among non-blacks MDRD (S/P/Bld) [Vol rate/Area] [place] Comment on above: Average GFR for 20-2 9 years old: 116 mL/min/1.73sq m Chronic Kidney Disease: <60 mL/min/1.73sq m Kidney failure: <15 mL/min/1.73sq m eGFR calculated using average adult body mass. Additional eGFR calculator available at: http://www.SERPs/multiple_crcl_2012.htm GFR/1.73 sq M predicted among non-blacks MDRD (S/P/Bld) [Vol rate/Area] NOT REPORTED [place] Glucose [Mass/Vol] 134 mg/dL High 70 - 99 mg/dL [place] Interpretation and review of laboratory results Abnormal [place] Potassium [Moles/Vol] 3.7 mmol/L 3.7 - 5.3 mmol/L [place] Protein [Mass/Vol] 8.1 g/dL 6.4 - 8.3 g/dL [place] Sodium [Moles/Vol] 136 mmol/L 135 - 144 mmol/L [place] Urea nitrogen [Mass/Vol] 14 mg/dL 6 - 20 mg/dL [place] Drug screen multi urineon Amphetamine Screen, Ur Negative NEGATIVE [place] Comment on above: (Positive cutoff 500 ng/mL) Barbiturate Screen, Ur Negative NEGATIVE [place] Comment on above: (Positive cutoff 200 ng/mL) Benzodiazepine Screen, Urine Negative NEGATIVE [place] Comment on above: (Positive cutoff 150 ng/mL) Buprenorphine Urine NOT REPORTED NEGATIVE [place] Cannabinoid Scrn, Ur Negative NEGATIVE [place] Comment on above: (Positive cutoff 50 ng/mL) Cocaine Metabolite, Urine Positive Abnormal NEGATIVE [place] Comment on above: (Positive cutoff 150 ng/mL) Interpretation and review of laboratory results Abnormal [place] MDMA, Urine NOT REPORTED NEGATIVE [place] Methadone Screen, Urine Negative NEGATIVE [place] Comment on above: (Positive cutoff 200 ng/mL) Methamphetamine, Urine Negative NEGATIVE [place] Comment on above: (Positive cutoff 500 ng/mL) Opiates, Urine Positive Abnormal NEGATIVE [place] Comment on above: (Positive cutoff 100 ng/mL) Oxycodone Screen, Ur Negative NEGATIVE [place] Comment on above: (Positive cutoff 100 ng/mL) Phencyclidine, Urine Negative NEGATIVE [place] Comment on above: (Positive cutoff 25 ng/mL) Propoxyphene, Urine Negative NEGATIVE [place] Comment on above: (Positive cutoff 300 ng/mL) Test Information NOT REPORTED [place] Tricyclic Antidepressants, Urine Negative NEGATIVE [place] Comment on above: (Positive cutoff 300 ng/mL) Drug screen results are to be used for medical purposes only. All positive results are unconfirmed. Testing for employment or legal uses should be sent to a reference laboratory for confirmation. Lactic Acidon 06-13-2019 Lactate [Moles/Vol] 1.2 mmol/L 0.5 - 2. 2 mmol/L [place] Lipaseon 06-13-2019 Lipase [Catalytic activity/Vol] 8 U/L Low 13 - 60 U/L [place] Microscopic Urinalysison Amorphous, UA NOT REPORTED None [place] Bacteria, UA 2+ Abnormal None [place] Casts UA 5 TO 10 HYALINE /LPF [place] Casts UA 2 TO 5 WAXY /LPF [place] Crystals, UA NOT REPORTED None /HPF [place] Epithelial Cells UA LOADED /HPF [place] Interpretation and review of laboratory results Abnormal [place] Mucus, UA 4+ Abnormal [place] Other Observations UA NOT REPORTED NOT REQ. [place] RBC (U) [#/Vol] 5 TO 10 [place] Renal Epithelial, UA NOT REPORTED 0 /HPF [place] Trichomonas, UA NOT REPORTED None [place] WBC, UA 10 TO 20 0 /HPF [place] Yeast, UA NOT REPORTED None [place] - [place] Otheron 06-13-2019 Interpretation and review of laboratory results Abnormal [place] Immature granulocytes (Bld) [#/Vol] NOT REPORTED 0 % [place] , Urineon 0 Beta HCG ( test) Ql (U) Negative NEGATIVE [place] Urinalysis, reflex to micros copicon 06-13-2019 Bilirubin Urine 3+ Abnormal NEGATIVE [place] Color, UA BROWN Abnormal YELLOW [place] Glucose, Ur Negative NEGATIVE [place] Interpretation and review of laboratory results Abnormal [place] Ketones Ql (U) MODERATE Abnormal NEGATIVE [place] Leukocyte esterase Test strip Ql (U) 1+ Abnormal NEGATIVE [place] Nitrite, Urine Positive Abnormal NEGATIVE [place] pH, UA 5.0 [place] Protein (U) [Mass/Vol] 1+ Abnormal NEGATIVE [place] Specific [place], UA 1.020 [place], [place] Turbidity UA CLEAR CLEAR [place] Urinalysis Comments [place] Urine Hgb TRACE Abnormal NEGATIVE [place] Urobilinogen, Urine 12 mg/dL Abnormal Normal [place] Vital Signs Date Time Vital Sign Value Performing Clinician Facility 10-05-2023 21:00-0400 Body temperature 99.61 [degF] Violet Juarez MD Work Phone: [facility] 10-05-2023 21:00-0400 Diastolic blood pressure 68 mm[Hg] Violet Juarez MD Work Phone: [facility] 10-05-2023 21:00-0400 Heart rate 93 /min Violet Juarez MD Work Phone: [facility] 10-05-2023 21:00-0400 Respiratory rate 16 /min Violet Juarez MD Work Phone: [facility] 10-05-2023 21:00-0400 SaO2% (BldA) [Mass fraction] 97 % Violet Juarez MD Work Phone: [facility] 10-05-2023 21:00-0400 Systolic blood pressure 114 mm[Hg] Violet Juarez MD Work Phone: [facility] 05-13-2023 11:27-0500 Body temperature 98.6 [degF] Jonathan Martinez [facility] 05-13-2023 11:27-0500 Diastolic blood pressure 78 mm[Hg] Jonathan Martinez [facility] 05-13-2023 11:27-0500 Heart rate 83 /min Jonathan Martinez [facility] 05-13-2023 11:27-0500 Respiratory rate 18 /min Jonathan Martinez [facility] 05-13-2023 11:27-0500 SaO2% (BldA) [Mass fraction] 97 % Jonathan Martinez [facility] 05-13-2023 11:27-0500 Systolic blood pressure 113 mm[Hg] Jonathan Martinez [facility] 05-11-2023 21:49-0500 Body temperature 98.06 [degF] [facility] 05-11-2023 21:49-0500 Diastolic blood pressure 84 mm[Hg] [facility] 05-11-2023 21:49-0500 Heart rate 105 /min [facility] 05-11-2023 21:49-0500 Respiratory rate 17 /min [facility] 05-11-2023 21:49-0500 SaO2% (BldA) [Mass fraction] 97 % [facility] 05-11-2023 21:49-0500 Systolic blood pressure 130 mm[Hg] Zac [facility] 05-10-2023 11:41-0500 Body height 160 cm Chet Berumen DO Work Phone: [facility] [employer] 05-10-2023 11:41-0500 Body mass index (BMI) [Ratio] 44.29 kg/m2 Chet Berumen Work Phone: [facility] [employer] 05-10-2023 11:41-0500 Body temperature 97.9 [degF] Chet Berumen DO Work Phone: [facility] [employer] 05-10-2023 11:41-0500 Body weight 113.4 kg Chet Berumen DO Work Phone: [facility] [employer] 05-10-2023 11:41-0500 Diastolic blood pressure 76 mm[Hg] Chet Berumen DO Work Phone: [facility] [employer] 05-10-2023 11:41-0500 Heart rate 94 /min Chet Berumen Work Phone: [facility] [employer] 05-10-2023 11:41-0500 Respiratory rate 18 /min Chet Berumen Work Phone: [facility] [employer] 05-10-2023 11:41-0500 SaO2% (BldA) [Mass fraction] 96 % Chet Berumen Work Phone: [facility] 05-10-2023 11:41-0500 Systolic blood pressure 146 mm[Hg] Chet Berumen DO Work Phone: [facility] 09-04-2022 11:27-0400 Body height 160 cm Erin Lacy MD Work Phone: [facility] 09-04-2022 11:27-0400 Body mass index (BMI) [Ratio] 44.99 kg/m2 Erin Lacy MD Work Phone: [facility] 09-04-2022 11:27-0400 Body temperature 98.2 [degF] Erin Lacy MD Work Phone: [facility] 09-04-2022 11:27-0400 Body weight 115.21 kg Erin Lacy MD Work Phone: [facility] 09-04-2022 11:27-0400 Diastolic blood pressure 71 mm[Hg] Erin Lacy MD Work Phone: [facility] 09-04-2022 11:27-0400 Heart rate 88 /min Erin Lacy MD Work Phone: [facility] 09-04-2022 11:27-0400 Respiratory rate 18 /min Erin Lacy MD Work Phone: [facility] 09-04-2022 11:27-0400 SaO2% (BldA) [Mass fraction] 97 % Erin Lacy MD Work Phone: [facility] 09-04-2022 11:27-0400 Systolic blood pressure 124 mm[Hg] Erin Lacy MD Work Phone: [facility] 06-29-2022 09:49-0400 Diastolic blood pressure 57 mm[Hg] Todd Bing [facility] 06-29-2022 09:49-0400 Heart rate 73 /min Todd Bing [facility] 06-29-2022 09:49-0400 Mean blood pressure 76 mm[Hg] Todd Bing [facility] 06-29-2022 09:49-0400 Respiratory rate 16 /min Todd Bing [facility] 06-29-2022 09:49-0400 Systolic blood pressure 113 mm[Hg] Todd Bing [facility] 05-19-2022 19:28-0400 Body height 160 cm Erin Lacy MD Work Phone: [facility] 05-19-2022 19:28-0400 Body mass index (BMI) [Ratio] 45.17 kg/m2 Erin Lacy MD Work Phone: [facility] 05-19-2022 19:28-0400 Body weight 115.67 kg Erin Lacy MD Work Phone: [facility] 05-19-2022 19:25-0400 Body temperature 98.29 [degF] Erin Lacy MD Work Phone: [facility] 05-19-2022 19:25-0400 Diastolic blood pressure 68 mm[Hg] Erin Lacy MD Work Phone: [facility] 05-19-2022 19:25-0400 Heart rate 78 /min Erin Lacy MD Work Phone: [facility] 05-19-2022 19:25-0400 Respiratory rate 16 /min Erin Lacy MD Work Phone: [facility] 05-19-2022 19:25-0400 SaO2% (BldA) [Mass fraction] 98 % Erin Lacy MD Work Phone: [facility] 05-19-2022 19:25-0400 Systolic blood pressure 110 mm[Hg] Erin Lacy MD Work Phone: [facility] 05-11-2022 19:17-0500 Body height 160 cm Anuj Quinn MD Work Phone: [facility] 05-11-2022 19:17-0500 Body mass index (BMI) [Ratio] 45.06 kg/m2 Anuj Quinn MD Work Phone: [facility] 05-11-2022 19:17-0500 Body temperature 98.01 [degF] Anuj Quinn MD Work Phone: [facility] 05-11-2022 19:17-0500 Body weight 115.39 kg Anuj Quinn MD Work Phone: [facility] 05-11-2022 19:17-0500 Diastolic blood pressure 91 mm[Hg] Anuj Quinn MD Work Phone: [employer] [facility] 05-11-2022 19:17-0500 Heart rate 78 /min Anuj Quinn MD Work Phone: [facility] 05-11-2022 19:17-0500 Respiratory rate 18 /min Anuj Quinn MD Work Phone: [facility] [employer] 05-11-2022 19:17-0500 SaO2% (BldA) [Mass fraction] 96 % Anuj Quinn MD Work Phone: [facility] 05-11-2022 19:17-0500 Systolic blood pressure 121 mm[Hg] Anuj Quinn MD Work Phone: [facility] 10-12-2021 18:31-0400 Heart rate 93 /min Rishabh Mancini MD Work Phone: [facility] 10-12-2021 18:31-0400 Respiratory rate 16 /min Rishabh Mancini MD Work Phone: [facility] 10-12-2021 18:31-0400 SaO2% (BldA) [Mass fraction] 97 % Rishabh Mancini MD Work Phone: [facility] 10-12-2021 18:12-0400 Body height 160 cm Rishabh Mancini MD Work Phone: [facility] 10-12-2021 18:12-0400 Body mass index (BMI) [Ratio] 47.12 kg/m2 Rishabh Mancini MD Work Phone: [facility] 10-12-2021 18:12-0400 Body temperature 99.19 [degF] Rishabh Mancini MD Work Phone: [facility] 10-12-2021 18:12-0400 Body weight 120.66 kg Rishabh Mancini MD Work Phone: [facility] [employer] 10-12-2021 18:12-0400 Diastolic blood pressure 77 mm[Hg] Rishabh Mancini MD Work Phone: [facility] 10-12-2021 18:12-0400 Systolic blood pressure 126 mm[Hg] Rishabh Mancini MD Work Phone: [facility] 07-22-2021 10:38-0400 Body height 160 cm Clark Mosre MD Work Phone: [facility] [employer] 07-22-2021 10:38-0400 Body mass index (BMI) [Ratio] 47.63 kg/m2 Clark [facility]oser MD [facility] Phone[facility] 07-22-2021 10:38-0400 Body temperature 97.3 [degF] Clark Moser MD Work [facility] 07-22-2021 10:38-0400 Body weight 121.97 kg Clark Moser MD Work Phone: [facility] 07-22-2021 10:38-0400 Diastolic blood pressure 88 mm[Hg] Clark Moser MD Work Phone: [facility] 07-22-2021 10:38-0400 Heart rate 104 /min Clark Moser MD Work Phone: [facility] 07-22-2021 10:38-0400 Respiratory rate 18 /min Clark Moser MD Work Phone: [facility] 07-22-2021 10:38-0400 SaO2% (BldA) [Mass fraction] 95 % Clark Moser MD Work Phone: [facility] 07-22-2021 10:38-0400 Systolic blood pressure 126 mm[Hg] Clark Moser MD Work Phone: [facility] [employer] 05-15-2021 09:11-0500 Body height 160 cm Angelito Harvey [facility] 05-14-2021 10:41-0500 Body height 160 cm Farhat Vang MD Work Phone: [facility] 05-14-2021 10:41-0500 Body mass index (BMI) [Ratio] 44.96 kg/m2 Farhat Vang MD Work Phone: [facility] 05-14-2021 10:41-0500 Body temperature 97.81 [degF] Farhat Vang MD Work Phone: [facility] 05-14-2021 10:41-0500 Body weight 115.12 kg Farhat Vang MD Work Phone: [facility] 05-14-2021 10:41-0500 Diastolic blood pressure 78 mm[Hg] Farhat Vang MD Work Phone: [facility] 05-14-2021 10:41-0500 Heart rate 98 /min Farhat Vang MD Work Phone: [facility] 05-14-2021 10:41-0500 Respiratory rate 18 /min Farhat Vang MD Work Phone: [facility] 05-14-2021 10:41-0500 SaO2% (BldA) [Mass fraction] 97 % Farhat Vang MD Work Phone: [facility] 05-14-2021 10:41-0500 Systolic blood pressure 124 mm[Hg] Farhat Vang MD Work Phone: [facility] 04-16-2021 10:15-0500 Body height 160 cm Farhat Vang MD Work Phone: [facility] 04-16-2021 10:15-0500 Body mass index (BMI) [Ratio] 44.44 kg/m2 Farhat Vang MD Work Phone: [facility] 04-16-2021 10:15-0500 Body temperature 98.01 [degF] Farhat Vang MD Work Phone: [facility] 04-16-2021 10:15-0500 Body weight 113.81 kg Farhat Vang MD Work Phone: [facility] 04-16-2021 10:15-0500 Diastolic blood pressure 78 mm[Hg] Farhat Vang MD Work Phone: [facility] 04-16-2021 10:15-0500 Heart rate 100 /min Farhat Vang MD Work Phone: [facility] 04-16-2021 10:15-0500 Respiratory rate 18 /min Farhat Vang MD Work Phone: [facility] 04-16-2021 10:15-0500 SaO2% (BldA) [Mass fraction] 96 % Farhat Vang MD Work Phone: [facility] 04-16-2021 10:15-0500 Systolic blood pressure 122 mm[Hg] Farhat Vang MD Work Phone: [facility] 03-23-2021 12:40-0500 Body height 160 cm Anuj Quinn MD Work Phone: [facility] [employer] 03-23-2021 12:40-0500 Body mass index (BMI) [Ratio] 44.46 kg/m2 Anuj Quinn MD Work Phone: [facility] [employer] 03-23-2021 12:40-0500 Body temperature 99.7 [degF] Anuj Quinn MD Work Phone: [facility] [employer] 03-23-2021 12:40-0500 Body weight 113.85 kg Anuj Quinn MD Work Phone: [facility] [employer] 03-23-2021 12:40-0500 Diastolic blood pressure 74 mm[Hg] Anuj Quinn MD Work Phone: [facility] 03-23-2021 12:40-0500 Heart rate 107 /min Anuj Quinn MD Work Phone: [facility] 03-23-2021 12:40-0500 Respiratory rate 16 /min Anuj Quinn MD Work Phone: [facility] 03-23-2021 12:40-0500 SaO2% (BldA) [Mass fraction] 96 % Anuj Quinn MD Work Phone: [facility] 03-23-2021 12:40-0500 Systolic blood pressure 131 mm[Hg] Anuj Quinn MD Work Phone: [facility] 01-15-2021 10:43-0500 Body height 160 cm Holland Ann MD Work Phone: [facility] 01-15-2021 10:43-0500 Body mass index (BMI) [Ratio] 42.55 kg/m2 Holland Ann MD Work Phone: [facility] 01-15-2021 10:43-0500 Body temperature 97.39 [degF] Holland Ann MD Work Phone: [facility] 01-15-2021 10:43-0500 Body weight 108.95 kg Holland Ann MD Work Phone: [facility] 01-15-2021 10:43-0500 Diastolic blood pressure 66 mm[Hg] Holland Ann MD Work Phone: [facility] 01-15-2021 10:43-0500 Heart rate 101 /min Holland Ann MD Work Phone: [facility] 01-15-2021 10:43-0500 SaO2% (BldA) [Mass fraction] 96 % Holland Ann MD Work Phone: [facility] 01-15-2021 10:43-0500 Systolic blood pressure 112 mm[Hg] Holland Ann MD Work Phone: [facility] 12-27-2020 18:15-0400 Body temperature 98.49 [degF] Wayne Springer MD Work Phone: [employer] Work Phone: 12-27-2020 18:15-0400 Diastolic blood pressure 77 mm[Hg] Wayne Springer MD Work Phone: [employer] Work Phone: Comment on above: Simultaneous filing. User may not have s een previous data. 12-27-2020 18:15-0400 Heart rate 98 /min Wayne Springer MD Work Phone: [employer] Work Phone: 12-27-2020 18:15-0400 Respiratory rate 20 /min Wayne Springer MD Work Phone: [employer] Work Phone: 12-27-2020 18:15-0400 SaO2% (BldA) [Mass fraction] 95 % Wayne Springer MD Work Phone: [employer] Work Phone: Comment on above: Simultaneous filing. User may not have s een previous data. 12-27-2020 18:15-0400 Systolic blood pressure 107 mm[Hg] Wayne Springer MD Work Phone: [employer] Work Phone: Comment on above: Simultaneous filing. User may not have s een previous data. 11-20-2020 21:07-0400 Body height 160 cm Anuj Quinn MD Work Phone: [employer] Work Phone: 11-20-2020 21:07-0400 Body mass index (BMI) [Ratio] 38.62 kg/m2 Anuj Quinn MD Work Phone: [employer] Work Phone: 11-20-2020 21:07-0400 Body temperature 98.6 [degF] Anuj Quinn MD Work Phone: [employer] Work Phone: 11-20-2020 21:07-0400 Body weight 98.88 kg Anuj Quinn MD Work Phone: [employer] Work Phone: 11-20-2020 21:07-0400 Diastolic blood pressure 65 mm[Hg] Anuj Quinn MD Work Phone: [employer] Work Phone: 11-20-2020 21:07-0400 Heart rate 84 /min Anuj Quinn MD Work Phone: [employer] Work Phone: 11-20-2020 21:07-0400 Respiratory rate 16 /min Anuj Quinn MD Work Phone: [employer] Work Phone: 11-20-2020 21:07-0400 SaO2% (BldA) [Mass fraction] 97 % Anuj Quinn MD Work Phone: [employer] Work Phone: 11-20-2020 21:07-0400 Systolic blood pressure 113 mm[Hg] Anuj Quinn MD Work Phone: [employer] Work Phone: 11-07-2020 16:28-0400 Body height 160 cm Nicholas Roger MD Work Phone: [employer] Work Phone: 11-07-2020 16:28-0400 Body mass index (BMI) [Ratio] 38.26 kg/m2 Nicholas Roger MD Work Phone: [employer] Work Phone: 11-07-2020 16:28-0400 Body temperature 98.8 [degF] Nicholas Roger MD Work Phone: [employer] Work Phone: 11-07-2020 16:28-0400 Body weight 97.98 kg Nicholas Roger MD Work Phone: [employer] Work Phone: 11-07-2020 16:28-0400 Diastolic blood pressure 71 mm[Hg] Nicholas Roger MD Work Phone: [employer] Work Phone: 11-07-2020 16:28-0400 Heart rate 98 /min Nicholas Roger MD Work Phone: [employer] Work Phone: 11-07-2020 16:28-0400 Respiratory rate 18 /min Nicholas Roger MD Work Phone: [employer] Work Phone: 11-07-2020 16:28-0400 SaO2% (BldA) [Mass fraction] 94 % Nicholas Roger MD Work Phone: [employer] Work Phone: 11-07-2020 16:28-0400 Systolic blood pressure 120 mm[Hg] Nicholas Roger MD Work Phone: [employer] Work Phone: 07-09-2020 10:52-0400 Body height 160 cm Zelda Bautista CNP Work Phone: [facility] 07-09-2020 10:52-0400 Body mass index (BMI) [Ratio] 41.27 kg/m2 Zelda Bautista CNP Work Phone: [facility] 07-09-2020 10:52-0400 Body weight 105.69 kg Zelda Bautista CNP Work Phone: [facility] 07-09-2020 10:52-0400 Diastolic blood pressure 70 mm[Hg] Zelda Bautista CNP Work Phone: [facility] 07-09-2020 10:52-0400 Heart rate 97 /min Zelda Bautista CNP Work Phone: [facility] 07-09-2020 10:52-0400 Systolic blood pressure 101 mm[Hg] Zelda Bautista CNP Work Phone: [facility] 06-24-2020 09:48-0400 Body mass index (BMI) [Ratio] 40.92 kg/m2 Anuj Quinn MD Work Phone: [employer] Work Phone: 06-24-2020 09:48-0400 Body temperature 97.9 [degF] Anuj Quinn MD Work Phone: [employer] Work Phone: 06-24-2020 09:48-0400 Body weight 104.78 kg Anuj Quinn MD Work Phone: [employer] Work Phone: 06-24-2020 09:48-0400 Diastolic blood pressure 64 mm[Hg] Anuj Quinn MD Work Phone: [employer] Work Phone: 06-24-2020 09:48-0400 Heart rate 120 /min Anuj Qiunn MD Work Phone: [employer] Work Phone: 06-24-2020 09:48-0400 Respiratory rate 18 /min Anuj Quinn MD Work Phone: [employer] Work Phone: 06-24-2020 09:48-0400 SaO2% (BldA) [Mass fraction] 100 % Anuj Quinn MD Work Phone: [employer] Work Phone: 06-24-2020 09:48-0400 Systolic blood pressure 115 mm[Hg] Anuj Quinn MD Work Phone: [employer] Work Phone: 06-09-2020 10:44-0400 Body height 160 cm Lelo Gallegos MD Work Phone: [facility] 06-09-2020 10:44-0400 Body mass index (BMI) [Ratio] 41.27 kg/m2 Lelo Gallegos MD Work Phone: [facility] 06-09-2020 10:44-0400 Body weight 105.69 kg Lelo Gallegos MD Work Phone: [facility] 06-09-2020 10:44-0400 Diastolic blood pressure 75 mm[Hg] Lelo Gallegos MD Work Phone: [facility] 06-09-2020 10:44-0400 Heart rate 116 /min Lelo Gallegos MD Work Phone: [facility] 06-09-2020 10:44-0400 Systolic blood pressure 110 mm[Hg] Lelo Gallegos MD Work Phone: [facility] 03-26-2020 22:17-0500 Pulse (Heart Rate) 98 /min Brie Moreno [employer] [facility] 03-26-2020 21:43-0500 BP Diastolic 66 mm[Hg] Brie [facility] [place] [facility] [place] 03-26-2020 21:43-0500 BP Systolic 99 mm[Hg] [facility] [place] 03-26-2020 21:43-0500 Pulse Oximetry 95 % [facility] [place] 03-26-2020 20:50-0500 Respiratory Rate 16 /min Brie Moreno [employer] [facility] [place] 03-26-2020 20:13-0500 BMI (Body Mass Index) 40.14 kg/m2 [facility] [place] [place] 03-26-2020 20:13-0500 Body Temperature 98.2 [degF] [facility] [place] 03-26-2020 20:13-0500 Body weight 102.78 kg Brie Jorgensen [facility] , [place] 02-15-2020 18:22-0500 BMI (Body Mass Index) 39.75 kg/m2 Brie [employer] [facility] 02-15-2020 18:22-0500 Body Temperature 98.6 [degF] Brie Moreno [employer] [facility] [place] 02-15-2020 18:22-0500 Body weight 101.79 kg Brie Jorgensen [facility] , [place] 02-15-2020 18:22-0500 BP Diastolic 78 mm[Hg] [facility] [place] 02-15-2020 18:22-0500 BP Systolic 127 mm[Hg] [facility] [place] [facility] [place] 02-15-2020 18:22-0500 Height 160 cm Brie Moreno [facility] , [place] 02-15-2020 18:22-0500 Pulse (Heart Rate) 92 /min Brie Josh [facility], [place] 02-15-2020 18:22-0500 Pulse Oximetry 99 % Brie Moreno [facility] , [place] 02-15-2020 18:22-0500 Respiratory Rate 20 /min Brie Moreno [facility], [place] 11-20-2019 18:48-0400 BP Diastolic 75 mm[Hg] [facility] 11-20-2019 18:48-0400 BP Systolic 128 mm[Hg] [facility] 11-20-2019 18:48-0400 Pulse (Heart Rate) 83 /min [facility], [place] 11-20-2019 18:48-0400 Pulse Oximetry 97 % [facility], [place] 11-20-2019 18:48-0400 Respiratory Rate 18 /min [facility] 11-20-2019 17:00-0400 BMI (Body Mass Index) 36.31 kg/m2 [facility] 11-20-2019 17:00-0400 Body Temperature 98.4 [degF] [facility] 11-20-2019 17:00-0400 Body weight 92.99 kg [facility] 11-03-2019 11:37-0400 BMI (Body Mass Index) 34.47 kg/m2 [facility], [place] 11-03-2019 11:37-0400 Body Temperature 98.71 [degF] [facility], [place] 11-03-2019 11:37-0400 Body weight 88.27 kg [facility], [place] 11-03-2019 11:37-0400 BP Diastolic 66 mm[Hg] [facility] 11-03-2019 11:37-0400 BP Systolic 117 mm[Hg] [facility], [place] 11-03-2019 11:37-0400 Height 160 cm Wayne [facility], [place] 11-03-2019 11:37-0400 Pulse (Heart Rate) 87 /min [place] 11-03-2019 11:37-0400 Pulse Oximetry 99 % [place] 11-03-2019 11:37-0400 Respiratory Rate 20 /min Wayne [place], [place] 08-13-2019 19:42-0400 BMI (Body Mass Index) 31 kg/m2 [facility] 08-13-2019 19:42-0400 Body Temperature 98.6 [degF] [facility] 08-13-2019 19:42-0400 Body weight 79.38 kg [facility] 08-13-2019 19:42-0400 Height 160 cm [facility] 08-13-2019 19:40-0400 BP Diastolic 60 mm[Hg] [facility] 08-13-2019 19:40-0400 BP Systolic 156 mm[Hg] [facility] 08-13-2019 19:40-0400 Pulse (Heart Rate) 138 /min [facility] 08-13-2019 19:40-0400 Pulse Oximetry 98 % [facility] 08-13-2019 19:40-0400 Respiratory Rate 16 /min [facility] 06-17-2019 12:45-0400 Respiratory Rate 18 /min [facility] 06-17-2019 07:54-0400 Body Temperature 97.81 [degF] [facility] 06-17-2019 07:54-0400 BP Diastolic 66 mm[Hg] [facility] 06-17-2019 07:54-0400 BP Systolic 99 mm[Hg] [facility] 06-17-2019 07:54-0400 Pulse (Heart Rate) 82 /min [facility] 06-17-2019 07:54-0400 Pulse Oximetry 94 % [facility] 06-14-2019 08:15-0400 BMI (Body Mass Index) 32.92 kg/m2 [facility] 06-14-2019 08:15-0400 Body weight 81.65 kg [facility] 06-14-2019 08:15-0400 Height 157.5 cm [facility] 06-14-2019 04:20-0400 Pulse (Heart Rate) 83 /min Brie [facility] [place] [place] 06-14-2019 04:05-0400 BP Diastolic 58 mm[Hg] Brie [facility] [place] [facility] [place] 06-14-2019 04:05-0400 BP Systolic 95 mm[Hg] Brie [facility] [place] [facility] [place] 06-14-2019 04:05-0400 Pulse Oximetry 95 % [facility] [place] [facility] [place] 06-14-2019 01:12-0400 Respiratory Rate 18 /min [facility] [place] 06-14-2019 00:10-0400 Body Temperature 100.51 [degF] [facility] [place] 06-13-2019 22:00-0400 BMI (Body Mass Index) 32.31 kg/m2 [facility] [place] [place] 06-13-2019 22:00-0400 Body weight 82.74 kg [facility] [place] [facility] [place] 06-13-2019 22:00-0400 Height 160 cm Brie [facility] [place] [facility] [place] 04-28-2019 19:58-0500 Body Temperature 98.8 [degF] [facility] [place] 04-28-2019 19:58-0500 BP Diastolic 70 mm[Hg] [facility] [place] [facility] [place] 04-28-2019 19:58-0500 BP Systolic 98 mm[Hg] [facility] [place] [facility] [place] 04-28-2019 19:58-0500 Pulse (Heart Rate) 119 /min [facility] [place] 04-28-2019 19:58-0500 Pulse Oximetry 100 % Roslyn [employer] [facility] [place] [facility] [place] 04-28-2019 19:58-0500 Respiratory Rate 30 /min [facility] [place] 04-28-2019 19:54-0500 BMI (Body Mass Index) 30.65 kg/m2 Roslyn Keating [employer] [facility] [place] 04-28-2019 19:54-0500 Body weight 78.47 kg [facility] , [place] 04-28-2019 19:54-0500 Height 160 cm Roslyn Keating [place], [place] Encounters Encounter Date Encounter Type Care Provider Facility Start: 11-23-2023 End: 11-23-2023 ambulatory MARK ELIANA Not Available Start: 11-09-2023 End: 11-09-2023 ambulatory MARK ELIANA Not Available Start: 10-26-2023 End: 10-26-2023 ambulatory MARK ELIANA Not Available Start: 10-05-2023 End: 10-05-2023 ambulatory VIOLET Ramos [facility] Start: 10-05-2023 End: 10-05-2023 Subsequent hospital visit by physician Violet Juarez MD Work Phone: [id number] Start: 10-05-2023 End: 10-05-2023 Emergency department patient visit PROVIDENCE FORGE Richard [facility] Start: 10-05-2023 End: 10-05-2023 Emergency department patient visit LINDA LANDRYE [facility] Start: 09-12-2023 End: 09-12-2023 ambulatory MARK ELIANA Not Available Start: 08-16-2023 End: 08-16-2023 ambulatory MARK ELIANA Not Available Start: 07-26-2023 End: 07-26-2023 ambulatory BLAKE KAUFFMAN [facility] Start: 07-19-2023 End: 07-19-2023 ambulatory MARK ELIANA Not Available Start: 06-21-2023 End: 06-21-2023 ambulatory MARK ELIANA Not Available Start: 05-20-2023 End: 05-20-2023 ambulatory MARK ELIANA Not Available Start: 05-13-2023 End: 05-13-2023 Emergency department patient visit Jonathan Michelle Facility:[facility] Start: 05-13-2023 End: 05-13-2023 Emergency department patient visit Jonathan Martinez [facility] Start: 05-11-2023 End: 05-12-2023 Emergency department patient visit Zac Fields Facility:[facility] Start: 05-11-2023 End: 05-11-2023 Emergency department patient visit Zac Herreraailin [facility] Start: 05-10-2023 End: 05-10-2023 Emergency department patient visit LINDA SHEPPARD [facility] Start: 05-10-2023 End: 05-10-2023 Emergency department patient visit Chet Berumen DO Work Phone: [facility] ED Comment on above: Toothache (Primary D x); Dental decay Start: 12-27-2022 End: 12-27-2022 ambulatory [facility]LEDOZ[facility] Start: 11-23-2022 End: 11-23-2022 ambulatory MARK SALCEDOZIO [facility] Start: 09-04-2022 End: 09-04-2022 Emergency department patient visit Erin Lacy MD Work Phone: [facility] ED Comment on above: Sprain of right ankl e, unspecified ligament, initial encounter (Primary Dx) Start: 06-29-2022 End: 06-30-[address] MARK DUMONT . Facility: Start: 06-29-2022 End: 06-30-2022 ambulatory Linda Sheppard Facility:[facility] Start: 06-29-2022 End: 06-29-2022 Pain Management Todd Smart [facility] Start: 06-14-2022 End: 06-14-[address] MARK DUMONT . Facility: Start: 05-19-2022 End: 05-19-2022 Emergency department patient visit Erin Lacy MD Work Phone: [facility] ED Comment on above: Dry socket (Primary Dx) Start: 05-11-2022 End: 05-11-2022 Emergency department patient visit Anuj Quinn MD Work Phone: [facility] ED Comment on above: Masseter muscle spas m (Primary Dx); Other acute postprocedural pain Start: 03-30-[address] MARK DUMONT . Facili ty:[facility] Start: 03-29-2022 End: 03-29-2022 Subsequent hospital visit by physician [facility] Start: 10-12-2021 End: 10-12-2021 Emergency department patient visit Rishabh Mancini MD Work Phone: [facility] ED Comment on above: Acute bronchitis, un specified organism (Primary Dx) Start: 07-22-2021 End: 07-22-2021 Emergency department patient visit Clark Moser MD Work Phone: [facility] ED Comment on above: Acute pharyngitis, u nspecified etiology (Primary Dx) Start: 07-07-2021 ambulatory BRIE GAGE ABELINO [facility] Ambulatory Start: 06-18-2021 ambulatory [facility] Start: 06-17-2021 End: 06-18-2021 ambulatory [facility] Start: 05-15-2021 End: 05-19-2021 ambulatory [facility] Start: 05-15-2021 End: 05-15-2021 Nutrition therapy Farhat Vang MD Work Phone: [facility] Comment on above: Morbid obesity with body mass index (BMI) of 40.0 or higher (HCC) Start: 05-14-2021 End: 05-18-2021 ambulatory [facility] Start: 05-14-2021 End: 05-14-2021 Office outpatient visit 15 minutes Farhat Vang MD Work Phone: [facility] Comment on above: Anxiety and depressi on (Primary Dx); At risk for obstructive sleep apnea; Chronic bilateral low back pain without sciatica; Hepatitis C antibody positive in blood; Body mass index 40.0-44.9, adult (HCC); History of opioid abuse (HCC) Start: 04-16-2021 End: 04-20-2021 ambulatory [facility] Start: 04-16-2021 End: 04-16-2021 Initial preventive medicine new pt age 18-39yrs Farhat Vang MD Work Phone: [facility] Comment on above: Encounter for genera l adult medical examination with abnormal findings (Primary Dx); Anxiety and depression; History of opioid abuse (HCC); Morbid obesity with body mass index (BMI) of 40.0 or higher (HCC) Start: 04-16-2021 End: 04-16-2021 Patient encounter status Farhat Vang MD Work Phone: [facility] Start: 03-23-2021 End: 03-23-2021 Emergency department patient visit Anuj Quinn MD Work Phone: [facility] ED Comment on above: COVID-19 (Primary Dx ); Omphalitis in adult Start: 02-16-2021 End: 02-20-2021 ambulatory [facility] Start: 02-12-2021 End: 02-16-2021 ambulatory PHYSICIAN [facility] Start: 02-10-2021 End: 02-14-2021 ambulatory [facility] Start: 02-02-2021 End: 02-06-2021 ambulatory PHYSICIAN [facility] Start: 01-15-2021 Documentation procedure Jeimy goodman [facility] Start: 01-15-2021 End: 01-15-2021 ambulatory HOLLAND WHIPPLE SETH [facility] Ambulatory Start: 01-15-2021 End: 01-15-2021 Office outpatient new 30 minutes Holland Ann MD Work Phone: [facility] Comment on above: Hemorrhoids, unspeci fied hemorrhoid type Start: 12-29-2020 End: 01-02-2021 ambulatory PHYSICIAN [facility] Start: 12-27-2020 End: 12-27-2020 Emergency department patient visit Wayne Springer MD Work Phone: [facility] ED Comment on above: Viral syndrome (Prim prakash Dx) Start: 11-20-2020 End: 11-20-2020 Emergency department patient visit Anuj Quinn MD Work Phone: [facility] ED Comment on above: Strain of rhomboid m uscle, initial encounter; Chest wall muscle strain, initial encounter Start: 11-07-2020 End: 11-07-2020 Emergency department patient visit Nicholas Roger MD Work Phone: [facility] ED Comment on above: Viral URI (Primary D x) Start: 08-28-2020 End: 08-30-2020 Evaluation and management of inpatient ROSLYN [facility] Start: 08-25-2020 End: 08-25-2020 ambulatory PHYSICIAN [facility] Start: 07-29-2020 End: 08-02-2020 ambulatory PHYSICIAN [facility] Start: 07-22-2020 End: 07-26-2020 ambulatory [facility] Start: 07-22-2020 End: 07-22-2020 Telemedicine consultation with patient Lelo Gallegos MD Work Phone: [facility] Comment on above: Diet controlled gest ational diabetes mellitus (GDM) in third trimester Start: 07-10-2020 ambulatory LELO ADAMS [facility] Ambulatory Start: 07-09-2020 End: 07-09-2020 ambulatory ZELDA BAUTISTA [facility] Start: 07-09-2020 End: 07-09-2020 Office outpatient visit 15 minutes Zelda Bautista [employer] Work Phone: [facility] Comment on above: Diet controlled gest ational diabetes mellitus (GDM) in third trimester (Primary Dx) Start: 06-24-2020 End: 06-24-2020 Emergency department patient visit Anuj Quinn MD Work Phone: [facility] ED Comment on above: Acute frontal sinusi tis, recurrence not specified (Primary Dx) Start: 06-10-2020 End: 06-10-2020 Nutrition therapy Lelo Gallegos Work Phone: [facility] Comment on above: Diet controlled gest ational diabetes mellitus (GDM) in second trimester Start: 06-09-2020 End: 06-09-2020 Office outpatient new 30 minutes Roslyn Stevenson MD Work Phone: [facility] Comment on above: Diet controlled gest ational diabetes mellitus (GDM) in second trimester Start: 05-27-2020 End: 05-31-2020 ambulatory PHYSICIAN [facility] Start: 05-21-2020 End: 05-25-2020 ambulatory PHYSICIAN [facility] Start: 03-26-2020 End: 03-26-2020 Emergency department patient visit Brie Moreno Work Phone: [facility] ED Comment on above: Atypical pneumonia ( Primary Dx) Start: 02-15-2020 End: 02-15-2020 Emergency department patient visit Brie Moreno Work Phone: [facility] ED Comment on above: Pain, dental (Primar y Dx); Acute gingivitis; Alveolar osteitis Start: 11-20-2019 End: 11-20-2019 Emergency department patient visit Anuj Quinn Work Phone: [facility] ED Comment on above: Bacterial vaginosis (Primary Dx); Trichimoniasis; Furuncle of left axilla Start: 11-03-2019 End: 11-03-2019 Emergency department patient visit Wayne Maryuri Springer Work Phone: [facility] ED Comment on above: Poison arabella (Primary Dx) Start: 08-20-2019 End: 08-21-2019 Patient encounter procedure HODA MADERA [facility] Start: 08-20-2019 End: 08-20-2019 Subsequent hospital visit by physician [facility] Start: 08-13-2019 End: 08-13-2019 Emergency department patient visit Christian Martinez Work Phone: [facility] Department Comment on above: Heroin abuse (HCC) ( Primary Dx) Start: 06-20-2019 End: 06-20-2019 Patient encounter procedure Alisa Palencia Work Phone: [facility] Comment on above: Hepatitis C virus in fection without hepatic coma, unspecified chronicity (Primary Dx) Start: 06-18-2019 End: 06-18-2019 Documentation procedure Taryn Torres [facility] Start: 06-18-2019 Follow-up encounter Taryn Cartagena [facility] Comment on above: Transition Of Care Start: 06-18-2019 End: 06-18-2019 Patient encounter procedure Taryn Stokes Torres [facility] Start: 06-14-2019 End: 06-17-2019 Evaluation and management of inpatient [facility] Work Phone: [facility] Comment on above: Elevated LFTs; IVDA (intravenous drug abuse) complicating (HCC) Start: 06-13-2019 End: 06-14-2019 Emergency department patient visit Brie Benjamin Josh Work Phone: [facility] ED Comment on above: Abdominal pain, unsp ecified abdominal location (Primary Dx); Urinary tract infection with hematuria, site unspecified; Viral hepatitis without hepatic coma, unspecified chronicity, unspecified viral hepatitis type; Polysubstance abuse (HCC); Hyperbilirubinemia Start: 04-28-2019 End: 04-28-2019 Emergency department patient visit Roslyn Keating Work Phone: [facility] ED Comment on above: Accidental overdose of heroin, initial encounter (HCC) (Primary Dx) Start: 12-20-2016 End: 01-02-2020 Cancer cervix - screening done Lelo Gallegos MD Work Phone: [facility] Start: 12-20-2016 End: 01-02-2020 Encounter for gynecological examination (general) (routine) without abnormal findings Jeimy Tan DIRECTOR CLIENT [facility] Procedures Date Procedure Procedure Detail Performing [...] Shingles Vaccine (1 of 2) [facility] jace- [place], [place] Start: 12-29-2025 Screening for malignant neoplasm of cervix Pap Smear [facility] Start: 10-31-2024 Screening for malignant neoplasm of cervix Pap Smear [facility] Start: 12-30-2023 Screening for malignant neoplasm of cervix [facility] Start: 09-06-2024 Respiratory Syncytial Virus (RSV) or age 60 yrs+ (1 - Risk 1-dose series) Respiratory Syncytial Virus (RSV) or age 60 yrs+ (1 - Risk 1-dose series) [facility] Start: 11-10-2023 End: 11-10-2023 Patient encounter procedure 11/10/2023 10:00 AM EDT Routine [facility] [address] [facility] [place] [address] [facility] Start: 10-27-2023 End: 10-27-2023 Patient encounter procedure 10/27/2023 10:[address] [facility] [address] [place] [address] [facility] Start: 10-13-2023 End: 10-13-2023 Patient encounter procedure 10/13/2023 10:[address] [facility] [address] [place] [address] Return in about 2 weeks (around 10/04/2023) for twins, dopplers, growth, transvag. [facility] Comment on above: Return in about 2 weeks (around ) for twins, dopplers, growth, transvag. Start: 10-07-2023 Tdap Vaccine during Tdap Vaccine during [facility] Start: 10-06-2023 Influenza vaccination Flu vaccine (#1) [facility] Start: 10-31-2022 Screening for malignant neoplasm of cervix [facility] [employer] Work Phone: Start: 10-05-2022 Influenza vaccination Flu vaccine (#1) [facility] Start: 04-16-2022 History and physical examination, annual for health maintenance Wellness Visit [facility] Start: 02-13-2022 Depression Remission Assessment (PHQ9) Depression Remission Assessment (PHQ9) [facility] Start: 12-29-2021 History and physical examination, annual for health maintenance Wellness Visit [facility] Start: 11-12-2021 End: 11-12-2021 Patient encounter procedure 11/12/2021 Office Visit Primary Care Farhat Vang MD [address] [place] [address] [facility] Start: 11-05-2021 Influenza vaccination [facility] Start: 10-05-2021 Influenza vaccination Flu vaccine (#1) [facility] Start: 06-26-2021 End: 06-26-2021 Nutrition therapy 06/26/2021 Nutrition Nutrition Farhat Vang MD [address] [address] [place] [address] [facility] Start: 05-15-2021 End: 05-15-2021 Nutrition therapy 05/15/2021 Nutrition Nutrition Angelito Harvey RD [facility] Start: 05-14-2021 End: 05-14-2021 Patient encounter procedure 05/14/2021 Office Visit Primary Care Farhat Vang MD [address] [address] [place] [address] [facility] Start: 03-17-2021 Depression screening using PHQ-9 (Patient Health Questionnaire 9) score Depression Screening (PHQ9) [facility] Start: 01-15-2021 Depression Remission Assessment (PHQ9) Depression Remission Assessment (PHQ9) [facility] Start: 01-09-2021 Hemoglobin A1c measurement A1C [facility] Start: 12-09-2020 HbA1c (Bld) [Mass fraction] A1C [facility] Start: 12-09-2020 Hemoglobin A1c measurement A1C [facility] Start: 11-05-2020 Influenza vaccination [facility] Start: 10-31-2020 History and physical examination, annual for health maintenance Wellness Visit [facility] Start: 08-28-2020 End: 08-28-2020 Admission to same day surgery center 08/28/2020 Surgery Obstetrics Roslyn Stevenson MD [facility] [address] [place] [address] [phone] SECTION [facility] Comment on above: SECTION Start: 08-28-2020 Subsequent hospital visit by physician 08/28/2020 Hospital Encounter Obstetrics Roslyn Stevenson MD [facility] Blaise Young [facility] [place] [address] [phone] [facility] Start: 08-25-2020 End: 08-25-2020 Office Visit 08/25/2020 Office Visit Endocrinology Zelda Bautista, CLUTCH OPERATOR [address] [place] [address] [phone] [facility] Start: 07-31-2020 End: 07-31-2020 Office Visit 07/31/2020 Office Visit Endocrinology Benito Krueger CNP [address] [place] [address] [phone] [facility] Start: 07-29-2020 End: 07-29-2020 Patient encounter procedure 07/29/2020 Routine Obstetrics and Gynecology Regla Dias CNM [address] [place] [phone] [facility] - An Affiliate of [facility] Start: 07-22-2020 End: 07-22-2020 Telemedicine consultation with patient 07/22/2020 Telemedicine Nutrition Lelo Gallegos MD [address] [place] [address] [phone] [facility] Start: 07-17-2020 End: 07-17-2020 Patient encounter procedure 07/17/2020 Routine Obstetrics and Gynecology Yvonne Santos MD [address] [place] [phone] [facility] [facility] - An [facility] of [facility] Start: 07-09-2020 End: 07-09-2020 Office Visit 07/09/2020 Office Visit Endocrinology Zelda Bautista, CLUTCH OPERATOR [address] [place] [address] [phone] [facility] Start: 07-04-2020 End: 07-04-2020 Patient encounter procedure 07/04/2020 Routine Obstetrics and Gynecology Radha Pantoja MD [address] [place] [phone] [facility] - An [facility] of [facility] Start: 06-26-2020 End: 06-26-2020 Patient encounter procedure 06/26/2020 Office Visit Endocrinology Janie Chen PA-C [address] [place] [address] [phone] [facility] Start: 06-24-2020 End: 06-24-2020 Nutrition [facility] Start: 06-19-2020 End: 06-19-2020 Routine 06/19/2020 Routine Obstetrics and Gynecology Larissa, Regla Arriaga CNM [address] [place] [phone] [facility] - An [facility] Start: 05-17-2020 Depression screening using PHQ-9 (Patient Health Questionnaire 9) score Depression Screening (PHQ9) [facility] Start: 2020 Screening for malignant neoplasm of cervix [facility] Start: 02-26-2020 End: 02-26-2020 Initial 02/26/2020 Initial Obstetrics and Gynecology Jai Huerta MD [address] [facility] [address] [place], [place] [id number] [facility] [employer] Start: 11-06-2019 Influenza vaccination [facility] [place] Start: 11-06-2019 Influenza vaccination given [facility] Start: 08-06-2019 Screening for malignant neoplasm of cervix Pap Smear [facility] Start: 06-20-2019 End: 06-20-2019 Office Visit 06/20/2019 Office Visit Transition of Care Alisa Palencia, CLUTCH OPERATOR [address] [facility] [address] [place] [address] [phone] [facility] Start: 11-05-2018 Influenza vaccination Flu vaccine (#1) [place] Start: 11-05-2018 Influenza vaccination given Sequential Influenza Vaccine (#1) [facility] Start: 03-21-2015 Cervical cancer screen Cervical cancer screen [place], [place] Start: 03-21-2015 Screening for malignant neoplasm of cervix Cervical cancer screen [place] Start: 04-05-2014 Screening for malignant neoplasm of cervix Pap smear [facility] Start: 2009 DTaP/Tdap/Td vaccine (1 - Tdap) DTaP/Tdap/Td vaccine (1 - Tdap) [place] Start: 2009 Hepatitis B vaccine (1 of 3 - Risk 3-dose series) Hepatitis B vaccine (1 of 3 - Risk 3-dose series) [facility] Work Phone: Start: 2008 Hepatitis C screening Hepatitis C screen [facility] Start: 2006 COVID-19 Vaccine (1) COVID-19 Vaccine (1) [facility] Start: 2005 HIV screen HIV screen [place] Start: 2005 HIV screening HIV screen [facility] Start: 2002 COVID-19 Vaccine (1) COVID-19 Vaccine (1) [facility] Start: 2002 Depression Monitoring Depression Monitoring [facility] Start: 2001 DTaP/Tdap/Td vaccine (1 - Tdap) DTaP/Tdap/Td vaccine (1 - Tdap) [place] Start: 2001 DTaP/Tdap/Td vaccine (5 - Tdap) DTaP/Tdap/Td vaccine (5 - Tdap) [facility] Start: 2000 Albumin DL <= 20 mg/L (U) [Mass/Vol] Urine Microalbumin [facility] Start: 2000 Diabetic foot examination Foot Exam [facility] Start: 2000 Microalbumin measurement, urine, quantitative Urine Microalbumin [facility] Start: 2000 Ophthalmic examination and evaluation Ophthalmology Exam [facility] Start: 1996 Pneumococcal 0-64 years Vaccine (1 of 1 - PPSV23) Pneumococcal 0-64 years Vaccine (1 of 1 - PPSV23) [place] Start: 1996 Pneumococcal Vaccine: Ped or At-Risk (1 of 2 - PPSV23) Pneumococcal Vaccine: Ped or At-Risk (1 of 2 - PPSV23) [facility] Start: 1995 COVID-19 Vaccine (1) COVID-19 Vaccine (1) [facility] Start: 1993 History and physical examination, annual for health maintenance Wellness Visit [facility] Start: 1991 Varicella vaccine (1 of 2 - 2-dose childhood series) Varicella vaccine (1 of 2 - 2-dose childhood series) [facility] Start: 1990 COVID-19 Vaccine (#1) COVID-19 Vaccine (#1) [facility] Start: 1990 Hepatitis B vaccine (1 of 3 - 3-dose series) Hepatitis B vaccine (1 of 3 - 3-dose series) [facility] Start: 1990 Hepatitis C screening Hepatitis C screen [facility] Start: 1990 Tetanus vaccination Tetanus: Every 10yrs [facility] Anti smooth muscle antibody IgA level Anti-Smooth Muscle Antibody Lab Add-On 06/15/2019 1:50 PM EDT [facility] Antimitochondrial antibody titer Antimitochondrial Antibody Lab Add-On 06/15/2019 1:50 PM EDT [facility] End: 11-20-2019 C.trachomatis N.gonorrhoeae DNA, Urine C.trachomatis N.gonorrhoeae DNA, Urine Microbiology STAT One Time for 1 Occurrences starting 11/20/2019 until 11/20/2019 [place] Comment on above: One Time for 1 Occurrences starting 11/05 until 11/20/2019 C.trachomatis N.gonorrhoeae DNA, Urine C.trachomatis N.gonorrhoeae DNA, Urine Microbiology Stat [employer] Label print 11/20/2019 5:55 PM EDT [place] End: 03-26-2020 Covid-19 Ambulatory Covid-19 Ambulatory Lab Routine Once for 1 Occurrences starting 03/26/2020 until 03/26/2020 [facility] [place] Comment on above: Once for 1 Occurrences starting 03/26/19 21 until 03/26/2020 Covid-19 Ambulatory Covid-19 Amb ulatory Lab Routine 03/26/2020 8:44 PM EST [facility] End: 06-13-2019 Culture, Blood 1 Culture, Blood 1 Microbiology STAT One Time for 1 Occurrences starting 06/13/2019 until 06/13/2019 [place] Comment on above: One Time for 1 Occurrences starting 10/2019 until 06/13/2019 Culture, Blood 1 [place], [place] End: 03-23-2021 Culture, Wound [facility] Work Phone: Comment on above: One Time for 1 Occurrences starting 03/07 until 03/23/2021 Cytomegalovirus DNA assay CMV DN A Detection and Quant, Blood Lab Routine 06/15/2019 1:50 PM EDT [facility] Kirsten-Hazel Virus P CR, Quantitative Kirsten-Hazel Virus PCR, Quantitative Lab Routine 06/15/2019 1:50 PM EDT [facility] End: 04-16-2022 Hemoglobin A1c/Hemoglobin.total in Blood Hemoglobin A1c Lab Routine Encounter for general adult medical examination with abnormal findings 1 Occurrences starting 04/16/2021 until 04/16/2022 [facility] Work Phone: Comment on above: 1 Occurrences starting 04/16/2021 until 04/16/2022 Hemoglobin A1c/Hemoglobin.total in Blood Hemoglobin A1c Lab Routine Encounter for general adult medical examination with abnormal findings 04/16/2021 10:58 AM [facility] End: 04-16-2022 Hepatitis C antibody measurement Hepatitis C Antibody Lab Routine Encounter for general adult medical examination with abnormal findings 1 Occurrences starting 04/16/2021 until 04/16/2022 [facility] Comment on above: 1 Occurrences starting 04/16/2021 until 04/16/2022 Hepatitis C antibody measurement Hepatitis C Antibody Lab Routine Encounter for general adult medical examination with abnormal findings 04/16/2021 10:58 AM [facility] MDI Treatment MDI Treatment Re spiratory Care Routine Every 6hr As Needed until discontinued starting 03/26/2020 [place] Comment on above: Every 6hr As Needed until discontinued s tarting 03/26/2020 Nonrebreather mask oxygen Nonreb reather mask oxygen Respiratory Care Routine As Needed until discontinued starting 10/05/2023 ALEXANDRA PANIAGUA [facility] Comment on above: As Needed until discontinued starting Nuclear Ab IF (S) [Titer] KENIA [place] b Add-On 06/15/2019 1:50 PM EDT [facility] End: 06-24-2020 Urinalysis, reflex to microscopic Urinalysis, reflex to microscopic Lab STAT One Time for 1 Occurrences starting 06/24/2020 until 06/24/2020 [employer] Work Phone: Comment on above: One Time for 1 Occurrences starting 06/06 until 06/24/2020 End: 05-14-2022 XR Lumbar Spine Complete AP/Lat w Obls XR Lumbar Spine Complete AP/Lat w Obls Imaging Routine Chronic bilateral low back pain without sciatica 1 Occurrences starting 05/14/2021 until 05/14/2022 [employer] Work Phone: Comment on above: 1 Occurrences starting 05/14/2021 until 05/14/2022 Payers Date Payer Category Payer Medicaid [employer] [id number] 2021-Present [phone] [address] [place] [address] [id number]. [id number] 2021 Unknown [id number] 1.2.840.251925.1.13.239.2. 7.3.368754.315 2017 Medicaid [id number] 1.2.840.884529.1.13.385.2. 7.3.048960.315 2012 Medicaid [id number] 1.2.840.709624.1.13.239.2. 7.3.496383.315 2012 Medicaid [id number] 2008 Private Health Insurance [id number] 1990 Unknown [id number] 2.16.840.1.383769.3.579.2. 173 1990 Unknown [id number] 2.16.840.1.885927.3.579.2. 900 1990 Unknown [id number] 2.16.840.1.222762.3.579.2. 900 1990 Unknown [id number] 2.16.840.1.019007.3.579.2. 900 1990 Unknown [id number] 2.16.840.1.092034.3.579.2. 900 1990 Unknown [id number] 2.16.840.1.156083.3.579.2. 900 1990 Unknown [id number] 2.16.840.1.702903.3.579.2. 900 1990 Unknown [id number] 2.16.840.1.601783.3.579.2. 900 1990 Unknown [id number] 2.16.840.1.993803.3.579.2. 903 1990 Unknown [id number] 2.16.840.1.921632.3.579.2. 903 1990 Unknown [id number] 2.16.840.1.972136.3.579.2. 903 1990 Unknown [id number] 2.16.840.1.577204.3.579.2. 903 1990 Unknown [id number] 2.16.840.1.420361.3.579.2. 903 1990 Unknown [id number] 2.16.840.1.887930.3.579.2. 903 1990 Unknown [id number] 2.16.840.1.920303.3.579.2. 903 1990 Unknown [id number] 2.16.840.1.820827.3.579.2. 903 1990 Unknown [id number] 2.16.840.1.471140.3.579.2. 903 1990 Unknown [id number] 2.16.840.1.371077.3.579.2. 903 1990 Unknown [id number] 2.16.840.1.815405.3.579.2. 903 1990 Unknown [id number] 2.16.840.1.714150.3.579.2. 903 1990 Unknown [id number] 2.16.840.1.535541.3.579.2. 903 1990 Unknown [id number] 2.16.840.1.154892.3.579.2. 903 1990 Unknown [id number] 2.16.840.1.790696.3.579.2. 903 1990 Unknown [id number] 2.16.840.1.082965.3.579.2. 593 1990 Unknown [id number] 2.16.840.1.987247.3.579.2. 593 1990 Unknown [id number] 2.16.840.1.991689.3.579.2. 593 1990 Unknown [id number] 2.16.840.1.840427.3.579.2. 593 1990 Unknown [id number] 2.16.840.1.781574.3.579.2. 727 1990 Unknown [id number] 2.16.840.1.664269.3.579.2. 727 1990 Unknown [id number] 2.16.840.1.966738.3.579.2. 727 1990 Unknown [id number] 2.16.840.1.436046.3.579.2. 174 1990 Unknown [id number] 2.16.840.1.251478.3.579.2. 174 1990 Unknown [id number] 2.16.840.1.504700.3.579.2. 174 1990 Unknown [id number] 2.16.840.1.210113.3.579.2. 174 1990 Unknown [id number] 2.16.840.1.723174.3.579.2. 174 1990 Unknown [id number] 2.16.840.1.727349.3.579.2. 9 1990 Unknown [id number] 2.16.840.1.427957.3.579.2. 9 1990 Unknown [id number] 2.16.840.1.197321.3.579.2. 9 1990 Unknown [id number] 2.16.840.1.495998.3.579.2. 9 1990 Unknown [id number] 2.16.840.1.862792.3.579.2. 9 1990 Unknown [id number] 2.16.840.1.459523.3.579.2. 9 1990 Unknown [id number] 2.16.840.1.395452.3.579.2. 9 1990 Unknown [id number] 2.16.840.1.567643.3.579.2. 9 1990 Unknown [id number] 2.16.840.1.411844.3.579.2. 175 1990 Unknown [id number] 2.16.840.1.122078.3.579.2. 175 1990 Unknown [id number] 2.16.840.1.771365.3.579.2. 175 1959 Unknown [id number] Social History Date Type Detail Facility Start: 04-28-2019 End: 11-03-2019 Tobacco smoking status INIS Current every day smoker [place] End: 02-15-2020 History of tobacco use Cigarette Smoker [place] Start: 04-28-2019 End: 10-05-2023 Cigarettes smoked current (pack per day) - Reported [facility] [employer] Start: 04-28-2019 Alcohol intake Current drinke r of alcohol (finding) [facility] Start: 1990 Sex Assigned At Not on file [facility] Start: 06-13-2019 End: 10-05-2023 Alcohol intake Ex-drinker (finding) [facility] Exposure to SARS-CoV -2 (event) Unable to assess [facility] Start: 05-18-2019 End: 04-16-2021 History SDOH Alcohol Frequency 3 [facility] Start: 05-18-2019 End: 07-16-2020 History SDOH Alcohol Std Drinks 5 [facility] Start: 05-04-2021 End: 05-19-2022 Exposure to SARS-CoV-2 (event) Not sure [facility] Start: 11-20-2019 End: 07-26-2023 Tobacco use and exposure [facility] Start: 06-09-2020 End: 07-26-2023 Tobacco smoking status NHIS Former smoker [facility] End: 02-15-2020 History of tobacco use Current smoker [facility] Start: 12-09-2019 [facility] Start: 04-16-2021 History SDOH Social Connections Get Together 4 [facility] Start: 04-16-2021 History SDOH Food Worry 1 [facility] Start: 09-04-2022 End: 10-05-2023 [facility] Start: 09-04-2022 History SDOH Alcohol Frequency 2 [facility] How often to you hav e a drink containing alcohol? Monthly or less [facility] Average Number of Drinks Not on file [facility] How often to you hav e a drink containing alcohol? Never [facility] Medical Equipment Procedure Code Equipment Code Equipment Origin al Text Equipment Identifier Dates Use to check BG QID Dx O24.14 . [id number] Start: 06-09-2020 Use as instructe d to check BG QID Dx O24.14 . [id number] Start: 06-09-2020 End: 06-11-2020 use to test BLOO D SUGAR FOUR TIMES DAILY [id number] Start: 06-09-2020 Goals Date Patient Goal Desired Activity /State Functional Status Date Assessment Result Facility 05-13-2023 Functional Status N/A [facility] 05-11-2023 Functional Status N/A [facility] 06-29-2022 Functional Status N/A [facility] Clinical Notes 06-09-2020 to 05-13-2023 Note [...] Follow these instructions at home: Medicines Take epuv-vhk-ladmzli and prescription medicines only as told by [...] provider. Document Revised: 04/30/2021 Document Reviewed: 04/30/2021 [employer] Patient Education 2022 [employer]. Follow Up Care 05/13/2023 11:20:07 With:[employer] [facility] Address: [address] [place], [place] [id number] [facility] (1) When:05/16/2023 12:45:32 Comments:Dentistry follow-up [facility] 05-12-2023 Hospital Discharg e instructions Patient Education 05/11/2023 23:33:09 Dental Pain, Efqu-hm-Ewfi Dental Pain Dental pain is often a [...] Follow these instructions at home: Medicines Take iobl-khd-kvuolol and prescription medicines only as told by [...] damage to the area. Brushing your teeth [place] your teeth twice a day using a [...] only when you eat or drink. Take srlw-uek-tomgcst and prescription medicines only as told by your dentist. Watch your dental pain for any changes. Let your dentist know if symptoms get worse. This information is not intended to replace advice given to you by your health care provider. Make sure you discuss any questions you have with your health care provider. Document Revised: 11/26/2020 Document Reviewed: 11/26/2020 [employer] Patient Education 2022 [employer]. Follow Up Care 05/11/2023 21:26:40 With:Linda Sheppard DO Address: [address] [place] [address], [address] [address] When:05/14/[address] [facility] 05-11-2023 Evaluation + Plan note Extrac roxann from: Title:ED Note Author:Violet Walters PA-C ate:05/11/23 1. Pain, dental (K08.89: Oth er specified disorders of teeth and supporting structures) Ordered: amoxicillin-clavulanate, = 1 tab(s), Oral, q12hr, X 7 day(s), # 14 tab(s), Refills(s) 0, Pharmacy: [facility], 160, cm, 05/11/23 21:53:00 EST, Height/Length Dosing, 110, kg, 05/11/23 21:53:00 EST, Weight Dosing chlorhexidine topical, 0.018 gm, 15 mL, Oral, BID, 480 mL, Refill(s) 0, (swish and spit; do not swallow), [facility], 160, cm, 05/11/23 21:53:00 EST, Height/Length Dosing, 110, kg, 05/11/23 21:53:00 EST, Weight Dosing 2. Infected dental caries (K02.9: Dental caries, unspecified) Ordered: amoxicillin-clavulanate, = 1 tab(s), Oral, q12hr, X 7 day(s), # 14 tab(s), Refills(s) 0, Pharmacy: [facility], 160, cm, 05/11/23 21:53:00 EST, Height/Length Dosing, 110, kg, 05/11/23 21:53:00 EST, Weight Dosing chlorhexidine topical, 0.018 gm, 15 mL, Oral, BID, 480 mL, Refill(s) 0, (swish and spit; do not swallow), [facility], 160, cm, 05/11/23 21:53:00 EST, Height/Length Dosing, 110, kg, 05/11/23 21:53:00 EST, Weight Dosing 3. First trimester (Z34.91: Encounter for supervision of normal , unspecified, first trimester) Periapical abscess without sinus (K04.7: Periapical abscess without sinus) Orders: ketorolac, 30 mg = 1 mL, Injection, IntraMuscular, Once, Stop date 05/11/23 23:31:00 EST, STAT, Start date 05/11/23 23:31:00 EST, 05/11/23 23:31:[address] [facility]03-05-2024 Hospital Discharge instructions* Discharge Instructions* Chet Berumen DO - 05/10/2023 11:50 AM EST Use amoxicillin as prescribed. Use Tylenol as needed for pain. Follow-up with dentist as soon as possible. * Attachments The following attachments cannot be sent through Care Everywhere. * Tooth Decay ([place] Ze[place]) * Tooth and Gum Pain ([place]) [facility] History of Present illness Narrative* Angelito [...] Supplements: Reviewed Current Outpatient Medications Ordered in [facility] Medication Sig Dispense Refill baclofen [...] mg by mouth daily . No current [facility]-ordered facility-administered medications on file. Lab [...] calorie goals/day. Estimated Nutritional Needs: Calorie Needs: 2171-9552 kcals/day (MSJ x 1.3AF -500-1000 to promote gradual weight loss) Patient/Family Education: Learner: family and patient Readiness: action - ready to set action plan and implement goals Barriers to Learning: none Method: explanation and handout Response: verbalizes understanding Expected Adherence: good Education Materials Provided: Healthy Meal Planning handout ([facility]), Goal Sheet, 1,903-Dpuudle5-Qct Menus (NCM), 1,800-Calorie 5-Day Menus (NCM), Weight Loss Tips (NCM) Monitoring/Evaluation: Lab results, weight, food recall, meal planning, goal achievement, physical activity, medication management. This documentation has been sent to the referring healthcare provider. Angelito Harvey RDN, ZAHRA Personal Office documented in this [id number] History of Present illness Narrative* Farhat Vang [...] C hepatitis virus. Patient was referred to wire wrapper machine operator and the recommendation was made [...] improve, for Follow Up. documented in this [id number] History of Present illness Narrative* Farhat Vang [...] current medications that are prescribed by her range management specialist. She has 4 children at home [...] Not difficult at all documented in this [id number] History of Present illness Narrative* Holland Ann [...] Procedure: SECTION; Surgeon: Roslyn Stevenson MD; Location: [facility]; Service: OBGYN SECTION, LOW TRANSVERSE [...] Friends and Family: Not on file Attends Rastafari Services: Not on file Active Member of [...] Report 12/29/2020 Final Value:Gynecologic Cytology Report Case: [id number] Authorizing Provider: Germania Valentino, Collected: 12/29/2020 11:09 AM CLUTCH OPERATOR Ordering Location: [facility] FINDING FASTENER - An Received: 12/30/2020 12:03 PM [facility] First Screen: Violet Craig Rescreen: [...] from every slide are reviewed by a gis administrator. Specimen processing and Primary Screening performed at: [facility] - [address] [place] [id number] HPV Results 12/29/2020 Final Value:This result contains [...] physician. Holland Ann MD documented in this [id number] History of Present illness Narrative* Jeimy Tan LPN - 01/15/2021 11:17 AM EST This nurse acted as a promotional model for a rectal exam by Dr. Ann for Tia. Tia verbalized consent to be examined, appeared comfortable and tolerated the exam well. documented in this [id number] History of Present illness Narrative* Neris Ulloa, [...] no 2) I will try yoga on Link Trigger - yes but didn't feel comfortable doing [...] oatmeal packet. Snack celery + PB or Malian yogurt or green peppers. Lunch - will be light if full from snack and may have an early dinner. Dinner - pork chops, steamed vegetables. Snack - Malian yogurt or vegetables or watermelon. Beverages - [...] prescription for Current Outpatient Medications Ordered in [facility] Medication Sig Dispense Refill blood [...] BLOOD SUGAR FOUR TIMES DAILY No current [facility]-ordered facility-administered medications on file. SMBG [...] the referring healthcare provider. documented in this [id number] Instructions* Patient Instructions* Zelda Bautista CNP - [...] to renew/prescribe testing supplies. documented in this [id number] History of Present illness Narrative* Zelda Bautista [...] visit with us. The patient did bring CooCoood sugar meter with her for download today however there is not many readings on it. She states she started a new job at [employer] and does noise get breaks to check [...] 4. Patient to cont. To follow with axminster weaver 5. Patient will require 2 hour 75 gram OGTT 8-12 weeks after delivery. 6. Follow-up in 2 weeks. Risks and potential complications of diabetes were reviewed with the patient. Electronically signed by Zelda MARIN 07/09/2110:03 AM documented in this [id number] History of Present illness Narrative* Lelo Gallegos [...] month during . While awaiting appointment with axminster weaver, patient provided with details of GDM diet, [...] 1 hour post prandial. 4. Referral to axminster weaver 5. Patient will require 2 hour 75 gram OGTT 8-12 weeks after delivery. 6. Follow-up in 2 weeks. Risks and potential complications of diabetes were reviewed with the patient. documented in this encounterOhioHealthEvaluation + Plan note No data available for this section [facility]* Diagnosis Diet controlled gestational diabetes mellitus (GDM) in second trimester [facility]* Diagnosis Acute frontal sinusitis, recurrence not specified- Primary documented in this encounter [employer] Phone: evaluation note* Diagnosis Diet controlled gestational diabetes mellitus (GDM) in third trimester- Primary [facility] Diagnosis Diet controlled gestational diabetes mellitus (GDM) in third trimester [facility]* Diagnosis Viral URI- Primary Acute upper respiratory infections of unspecified site documented in this encounter [employer] Phone: evalxdygkt note* Diagnosis Strain of rhomboid muscle, initial encounter Chest wall muscle strain, initial encounter documented in this encounter [employer] Phone: evalxnowql note* Diagnosis Viral syndrome- Primary Unspecified viral infection, in conditions classified elsewhere and of unspecified site documented in this encounter [employer] Phone: evaluation note* Diagnosis Hemorrhoids, unspecified hemorrhoid type [facility]* Diagnosis COVID-19- Primary Omphalitis in adult Unspecified local infection of skin and subcutaneous tissue documented in this encounter [employer] Phone: evaluation note* Diagnosis Encounter for general adult medical examination with abnormal findings- Primary Anxiety and depression History of opioid abuse (HCC) Morbid obesity with body mass index (BMI) of 40.0 or higher (HCC) documented [facility]* Diagnosis Anxiety and depression- Primary [...] higher (HCC) documented [facility]* Diagnosis Acute pharyngitis, unspecified etiology- Primary documented in this encounter [employer] Phone: evaluation note* Diagnosis Acute bronchitis, unspecified organism- Primary documented in this encounter [employer] Phone: evalfmonue note* Diagnosis Masseter muscle spasm- Primary Spasm of muscle Other acute postprocedural pain documented in this encounter [employer] Phone: evaluation note* Diagnosis Dry socket- Primary Alveolitis of jaw [facility]* Diagnosis Sprain of right ankle, unspecified ligament, initial encounter- Primary [facility]* Diagnosis Toothache- Primary Unspecified disorder of the teeth and supporting structures Dental decay Unspecified dental caries documented in this encounter [facility]* Diagnosis 26 weeks gestation of - Primary state, incidental documented [facility]* Instructions* Anuj Quinn MD - 06/24/2020 Although many douq-iwl-ttcqmvn cough cold flu sinus medications are safe in , I would contact her FINDING FASTENER office in [facility] to verify what your FINDING FASTENER group feels a safe in . Tylenol [...] be sent through Care Everywhere. * Sinusitis (New Zealander) [facility] Phone[facility] Discharge instructions* Attachments The following attachments cannot be sent through Care Everywhere. * URI (Upper Respiratory Infection) ([place] Zeal[place]) documented in this [facility] Phone: Hospital Discharge instructions* Attachments The following attachments cannot be sent through Care Everywhere. * Muscle Strain ([place]) [facility] Phone: Hospital Discharge instructions* Attachments The following attachments cannot be sent through Care Everywhere. * Viral Infections ([place] Ze[place]) documented in this [facility] Phone: Hospital Discharge instructions* Attachments The following attachments cannot be sent through Care Everywhere. * Coronavirus Disease (COVID-19): General Info ([place] Zealander) * Coronavirus Disease (COVID-19): Isolation ([place] Zealander) * Piercing: Infection ([place]) documented [facility] this [facility] Phone: spital Discharge instructions* Instructions* Clark Moser MD - 07/22/2021 Use Tylenol or Motrin for pain. Take amoxicillin twice a day. Amoxicillin treats strep throat, ear infections, bronchitis and pneumonia. Call primary care doctor for close follow-up. * Attachments The following attachments cannot be sent through Care Everywhere. * Sore Throat ([place] Zealander) documented in this [facility] Phone: spital Discharge instructions* Attachments The following attachments cannot be sent through Care Everywhere. * Bronchitis ([place] Ze[place]) documented in this [facility] Phone: [employer] Discharge instructions* Attachments The following attachments cannot be sent through Care Everywhere. * Cramp: Muscle ([place] Zealander) * Pain Post-Surgery: Acute ([place]alander) documented in this [facility] Phone: [employer] Discharge instructions* Attachments The following attachments cannot be sent through Care Everywhere. * [place] Tooth Extraction: Post-op ([place]ander) documented in this [facility] Phone: [employer] Discharge instructions No data available for this section [facility]* Attachments The following attachments cannot be sent through Care Everywhere. * Ankle Sprain ([place]) documented in this [facility]* Attachments The following attachments cannot be sent through Care Everywhere. * : Weeks 26 to 30 (New Zealander) * : When to Call (After 20 Weeks): General Info ([place]ander) * : Twins: General Info ([place]) documented in this [facility] note No data available for this section [facility] for referral (narrative)* Consultation (Routine) Status Reason Specialty Diagnoses / Procedures Referred By Contact Referred To Contact Authorized Nutrition Diagnoses Diet controlled gestational diabetes mellitus (GDM) in second trimester Lelo Gallegos MD [address] [place] [phone] Nutrition Services [address] [place] [address] [facility] for visit Narrative* Consultation (Routine) - Pending Review Specialty Diagnoses / Procedures Referred By Contac t Referred To Contact Gastroenterology Diagnoses Hemorrhoids, unspecified hemorrhoid type Germania Galaviz, CLUTCH OPERATOR [address] [place] [address] Holland Ann MD [address] [place] [address] Referral ID Status Reason Start Date Expiration Date V isits Requested Visits Authorized [id number] Pending Review 12/29/2020 01/14/2022 1 1 [facility] Assessments Diagnosis Accidental overdose of heroin, [...] FoundDocuments on File Type Date Recorded Patient Signals Officer Expl anation Advance Directives and Living Will Power of Butter Grader Documents on File Type Date Recorded Patient Signals Officer Expl anation Advance Directives and Living Will 06/14/2019 7:25 AM does not have 3/13/2 0 Latest Code Status on File Code Status Date Activated Date Inactivated Comments Full Code 06/15/2019 9:29 AM 06/17/2019 4:38 PM Full Code - Unverified 06/14/2019 8:35 AM 06/15/2019 9:29 AM Documents on File Type Date Recorded Patient Signals Officer Expl anation Advance Directives and Living Will 06/14/2019 7:25 AM does not have 3/13/2 0 Latest Code Status on File Code Status Date Activated Date Inactivated Comments Full Code 06/15/2019 9:29 AM 06/17/2019 4:38 PM Full Code - Unverified 06/14/2019 8:35 AM 06/15/2019 9:29 AM Documents on File Type Date Recorded Patient Signals Officer Expl anation Advance Directives and Living Will 06/20/2019 1:10 PM does not have 3/13/2 0 Documents on File Type Date Recorded Patient Signals Officer Expl anation ACP-Advance Directive ACP-Power of Butter Grader Documents on File Type Date Recorded Patient Signals Officer Expl anation Advance Directives and Living Will 06/20/2019 1:10 PM does not have 3/13/2 0 Documents on File Type Date Recorded Patient Signals Officer Expl anation Advance Directives and Living Will 08/28/2020 5:58 AM does not have 3/13/2 0 Latest Code Status on File Code Status Date Activated Date Inactivated Comments Full Code 08/28/2020 11:15 AM 08/30/2020 11:53 AM Full Code 08/28/2020 5:31 AM 08/28/2020 11:07 AM Full Code 06/15/2019 9:29 AM 06/17/2019 4:38 PM Documents on File Type Date Recorded Patient Signals Officer Expl anation Advance Directives and Living Will 08/28/2020 5:58 AM does not have 3/13/2 0 Latest Code Status on File Code Status Date Activated Date Inactivated Comments Full Code 08/28/2020 11:15 AM 08/30/2020 11:53 AM Full Code 08/28/2020 5:31 AM 08/28/2020 11:07 AM Full Code 06/15/2019 9:29 AM 06/17/2019 4:38 PM Documents on File Type Date Recorded Patient Signals Officer Expl anation Advance Directives and Livin g Will 05/15/2021 12:00 AM Latest Code Status on File Code Status Date Activated Date Inactivated Comments Full Code 10/05/2023 9:02 PM Hospital Course * Savita Stiles PA-C - 06/17/2019 10:12 AM EDT [facility] DISCHARGE SUMMARY Tia Levin Account: [id number] Admitted: 06/14/2019 Discharge Date/Time: 06/17/19 / 10:12 [...] amphetamine and heroine use who presented to [facility] 06/14/19 with complaints of abdominal pain and nausea. [facility] AST 1116 ALT 665 Alk phos 255 T bili 6.5 Lipase 8. CTAP revealed pericholecystic fluid vs GB wall thickening, no gallstones or hepatic pathology noted. Patient transferred to [facility] 06/14/2019 for further treatment and evaluation. GI followedwith recommendations as discussed. Patient was stable for discharge home on 06/17/19. 1. Acute Liver Injury: [facility] AST 1116 ALT 665 Alk phos [...] chart for all vitals, diagnostic data, and sr solutions consultant notes. I discussed patient's case with Dr. Gregorio, Dr. Hay (GI) and RN. Discharge Medications Medication List ASK your doctor about these medications naltrexone microspheres Commonly known as: VivitroL Inject 380 (three hundred eighty) mg into the shoulder, thigh, or buttocks every 30 (thirty) days . Physician(s) Family: Physician No, Phone: None, Address: [facility] Up: Javier Hay MD [address] [place] [address] [facility] [address] Follow up Repeat weekly CBC, CMP and PT/INR for the next 3-4 weeks then follow up out patient with Dr. Hay. Laboratory Follow Up by [facility]: Weekly labs for CBC, CMP, PT/INR Additional Information: Patient seen and examined day of discharge. For more information regarding patient's care, including complete radiology reports, please contact [facility] at Patient instructions, including activity, [...] amphetamine and heroine use who presented to [facility] 06/14/19 with complaints of abdominal pain and nausea. [facility] AST 1116 ALT 665 Alk phos 255 T bili 6.5 Lipase 8. CTAP revealed pericholecystic fluid vs GB wall thickening, no gallstones or hepatic pathology noted. Patient transferred to [facility] 06/14/2019 for further treatment and evaluation. LFTs [...] 1:16 PM EDT RESOURCES FOR PRIMARY CARE [facility] Primary Care Closed Opens tomorrow [address], [place] [address] [facility] [place] [address] [place] [address] DIRECTIONS WEBSITE [facility] Walk-In Care Closed Opens tomorrow 11 AM [address], [place] [address] documented in this encounter* Instructions* Adia Dillon, [...] Opioid Use Disorder: Medication-Assisted Treatment: General Info ([place] Zealander) documented in this encounter* Attachments The following attachments cannot be sent through Care Everywhere. * Bacterial Vaginosis ([place]) * Trichomoniasis ([place]) documented in this encounter* Attachments The following attachments cannot be sent through Care Everywhere. * Dental Surgery: Generic: Post-op ([place]) documented in this encounter* Attachments The following attachments cannot be sent through Care Everywhere. * Bronchitis ([place]) * Pneumonia ([place]) documented in this encounter* Attachments The following attachments cannot be sent through Care Everywhere. * Poison [place] - [place] - and [place] ([place]ander) documented in this encounter History of Present Illness * Javier Hay MD - 06/17/2019 9:59 AM EDT GASTROENTEROLOGY DAILY PROGRESS NOTE 1 Patient Name: Tia Levin MR #: [id number] Assessment/Plan: Elevated LFTs Assessment & Plan 29yo F with PMHx IVDU and hepatitis C who presents from [facility] with elevated LFTs and imaging c/f [...] Inpatient Progress Note 06/17/2019 Tia Levin 1990 [id number] Assessment/Plan: Tia Khushi Levin is a 29 y.o. female with a history of amphetamine and heroine use who presented to [facility] 06/14/19 with complaints of abdominal pain and nausea. [facility] AST 1116 ALT 665 Alk phos 255 T bili 6.5 Lipase 8. CTAP revealed pericholecystic fluid vs GB wall thickening, no gallstones or hepatic pathology noted. Patient transferred to [facility] 06/14/2019 for further treatment and evaluation. 1. [...] labs, diagnostics, vitals including pulse ox, and sr solutions consultant/other provider recommendations. No acute issues overnight [...] 2 Patient Name: Tia Levin MR #: [id number] Assessment/Plan: Elevated LFTs Assessment & Plan 29yo [...] Inpatient Progress Note 06/16/2019 Tia Levin 1990 [id number] Assessment/Plan: Tia Levin is a 29 y.o. female with a history of amphetamine and heroine use who presented to [facility] 06/14/19 with complaints of abdominal pain and nausea. [facility] AST 1116 ALT 665 Alk phos 255 T bili 6.5 Lipase 8. CTAP revealed pericholecystic fluid vs GB wall thickening, no gallstones or hepatic pathology noted. Patient transferred to [facility] 06/14/2019 for further treatment and evaluation. 1. [...] recent labs, diagnostics, vitals including pulseox, and sr solutions consultant/other provider recommendations. No acute issues overnight [...] 2 Patient Name: Tia Levin MR #: [id number] Assessment/Plan: Elevated LFTs Assessment & Plan 29yo F with PMHx IVDU and hepatitis C who presents from [facility] with elevated LFTs and imaging c/f [...] Radiology, Medications and Transcriptions Aisha Hare CNP [facility] (for staff use only) * Indra Pruitt MD - 06/15/2019 10:43 AM EDT [facility] 06/15/2019 Tia Levin 1990 [id number] Assessment/Plan: Tia Levin is a 29 y.o. female with a history of amphetamine and heroine use who presented to [facility] 06/14/19 with complaints of abdominal pain and nausea. [facility] AST 1116 ALT 665 Alk phos 255 T bili 6.5 Lipase 8. CTAP revealed pericholecystic fluid vs GB wall thickening, no gallstones or hepatic pathology noted. Patient transferred to [facility] 06/14/2019 for further treatment and evaluation. 1. Acute Liver Injury: [facility] AST 1116 ALT 665 Alk phos [...] not have a PCP and refused a family preservation caseworker consult for assistance. Verified insurance and [...] with patient about going to any [facility] to have her lab taken [...] daily (lemon water) Occasional iced coffee at [employer]. Was drinking a lot of Mountain Dew and Energy drinks prior to but stopped. Meals Away From Home - most days, fast food Past Medical History: Past Medical History: Diagnosis Date Anxiety Depression Infectious viral hepatitis hep c PTSD (Post-Traumatic Stress Disorder) History From: History obtained from patient and chart review. Current/Pertinent Medications: prescription for Current Outpatient Medications Ordered in [facility] Medication Sig Dispense Refill amoxicillin (AMOXIL) [...] mass index (BMI) of 40.0 or higher ([facility]) Farhat Vang MD [phone] Referral ID Status Reason Start Date Expiration Date Visits Requested Visits Authorized [id number] Authorized Specialty Services Required/Pat ient's Best Interest 04/16/2021 04/16/2022 1 1 Specialty Diagnoses / Procedures Referred By Contac t Referred To Contact Neurosurgery Diagnoses Chronic bilateral low back pain without sciatica Farhat Vang MD [address] [phone] Carina Kline MD [address] [place] [address] Referral ID Status Reason Start Date Expiration Date Visits Requested Visits Authorized [id number] Authorized Specialty Services Required/Pat ient's Best Interest 05/14/2021 05/14/2022 1 1 Specialty Diagnoses / Procedures Referred By Contac t Referred To Contact Rehabilitation Diagnoses Chronic bilateral low back pain without sciatica Farhat Vang MD [address] [address] Referral ID Status Reason Start Date Expiration Date Visits Requested Visits Authorized [id number] Authorized Specialty Services Required/Pat ient's Best Interest 05/14/2021 05/14/2022 1 1 Specialty Diagnoses / Procedures Referred By Contac t Referred To Contact Diagnoses At risk for obstructive sleep apnea Farhat Vang MD [address] [address] Gabriel Jacinto MD [address] [place] [address] Referral ID Status Reason Start Date Expiration Date Visits Requested Visits Authorized [id number] Authorized Specialty Services Required/Pat jvnt's Best Interest [...] in second trimester Lelo Gallegos MD [address] [place] [address] Nutrition Services [address] [place] [address] Reason Comments Gestational Diabetes Status Reason Specialty Diagnoses / Procedures Referred By Contact Referred To Contact Closed Endocrinology Diagnoses Diet controlled gestational diabetes mellitus (GDM) in second trimester Roslyn Stevenson MD [address] [place] [address] Lelo Gallegos MD [address] [place] [address] Reason Comments Pharyngitis sore throat and head [...] mass index (BMI) of 40.0 or higher ([facility]) Farhat Vang MD [address] [facility] [address] [place] [address] Nutrition [address] [place] [phone] Referral ID Status Reason Start Date Expiration Date Visits Requested Visits Authorized [id number] Authorized Specialty Services Required/Pat jvnt's Best Interest [...] and Physical Note 06/14/19 Tia Levin 1990 [id number] Assessment/Plan: Tia Levin is a 29 y.o. female with a history of amphetamine and heroine use who presented to [facility] 06/14/19 with complaints of abdominal pain and nausea. [facility] AST 1116 ALT 665 Alk phos 255 T bili 6.5 Lipase 8. CTAP revealed pericholecystic fluid vs GB wall thickening, no gallstones or hepatic pathology noted. Patient transferred to [facility] 06/14/2019 for further treatment and evaluation. 1. Elevated LFTs: [facility] AST 1116 ALT 665 Alk phos 255 T bili 6.5 (normal 02/2019). [facility] CTAP as noted above. RUQ U/S [...] amphetamine and heroine use who presented to [facility] 06/14/19 with complaints of abdominal pain and nausea. OL AST 1116 ALT 665 Alk phos 255 T bili 6.5 Lipase 8. CTAP revealed pericholecystic fluid vs GB wall thickening, no gallstones or hepatic pathology noted. Patient transferred to [facility] 06/14/2019 for further treatment and evaluation. Patient [...] labs, diagnostics, vitals including pulse ox, and sr solutions consultant/other provider recommendations. Discussed with collaborating physician [...] file Gets together: Not on file Attends taoism service: Not on file Active member of [...] reviewed, including documentation from previous hospitalizations and sr solutions consultant recommendations as summarized below. Briefly, patient [...] Name: Tia Levin Admit Date: MR #: [id number] : 1990 Senior addendum 29 y/o F [...] and hx of presents to [facility] with jaundice and abdominal pain. -RUQ U/S [...] Fleming MD General Surgery, PGY 2 Pager# [phone] 06/16/2019, 10:43 AM After 5 PM and on Weekends, please page [phone] (Surgery Agriscience Teacher fabrication welder) History of Present Illness: Patient presented for [...] file Gets together: Not on file Attends taoism service: Not on file Active member of [...] patient. I discussed the case with the resident/BUS ASSISTANT and agree with the findings and plan as documented in his/her note and/or any note I supplied. Associated Order(s): IP CONSULT TO GASTROENTEROLOGY GASTROENTEROLOGY CONSULT NOTE 4 Patient Name: Tia Levin Admit Date: MR #: [id number] : 1990 Physicians: Physician Judy (Family); Brie Moreno MD (Referring) Consult Ordered By: Franny Sims PA-C Assessment and Plan: Other Elevated LFTs Assessment & Plan 29yo F with PMHx IVDU and hepatitis C who presents from [facility] with elevated LFTs and imaging c/f [...] IVDU and hepatitis C who presents from [facility] with elevated LFTs and imaging c/f [...] she has been in and out of long term over past 3mo. She denies EtOH. Denies [...] file Gets together: Not on file Attends taoism service: Not on file Active member of [...] Invalid input(s): CO2, LABALBU Aisha Hare CNP [facility] (for staff use only) Associated [...] reviewed, including documentation from previous hospitalizations and sr solutions consultant recommendations as summarized below. Briefly, patient [...] secti on and content) ED PROVIDER NOTE [facility] EMERGENCY DEPARTMENT NAME: Tia Levin AGE: 29 y.o. : 1990 VISIT DATE: 08/13/2019 CSN: [id number] PCP: Physician No Chief Complaint Patient presents with Drug Overdose This is a 29-year-old female brought to the ER via EMS for evaluation. Time my exam patient is alert and oriented. She states she was in the [employer] parking lot bent over in her [...] file Gets together: Not on file Attends taoism service: Not on file Active member of [...] nursing note reviewed. Exam conducted with a promotional model present (Nurses at the bedside). Constitutional: General: [...] people with drug addiction. [address] [facility] [address] Contact information for after-discharge care Follow-up information has not been specified. Adia Dillon CNP 08/13/191948 Pt brought in by [facility], states she was found by [facility] unresponsive [...] content) DATE CREATED AUTHOR 08/21/2019 [facility] DATE CREATED AUTHOR AUTHOR'S ORGANIZ ATION 02/15/2021 [facility] DATE CREATED AUTHOR AUTHOR'S ORGANIZ ATION 05/18/2021 [facility] DATE CREATED AUTHOR AUTHOR'S ORGANIZ ATION 07/02/2021 [facility] DATE CREATED AUTHOR AUTHOR'S ORGANIZ ATION 07/09/2021 [facility] DATE CREATED AUTHOR AUTHOR'S ORGANIZ ATION 07/05/2022 [facility] DATE CREATED AUTHOR AUTHOR'S ORGANIZ ATION 05/14/2023 [facility] DATE CREATED AUTHOR AUTHOR'S ORGANIZ ATION 10/07/2023 [facility] DATE CREATED AUTHOR AUTHOR'S ORGANIZ ATION 11/25/2023 [facility] EPIC DATE CREATED AUTHOR AUTHOR'S ORGANIZ ATION 11/26/2023 [facility] Ordered Prescriptions (unrec ognized section [...]
Care Teams (unrecognized sec tion and content) Regional Retail Sales Manager Relationship Specialty Start Date End Date No, Physician [facility] PCP - General 12/29/20 Germania Galaviz, CLUTCH OPERATOR [address] [place] [phone] Nurse Practitioner Obstetrics/Gynecology 11/01/19 Regional Retail Sales Manager Relationship Specialty Start Date End Date No, Physician [facility] PCP - General 12/29/20 Germania Galaviz, CLUTCH OPERATOR [address] [place] [address] Nurse Practitioner Obstetrics/Gynecology 11/01/19 Regional Retail Sales Manager Relationship Specialty Start Date End Date Farhat Vang MD [address] [address] PCP - General Family Medicine 04/16/21 Germania Galaviz, CLUTCH OPERATOR [address] [place] [address] Nurse Practitioner Obstetrics/Gynecology 11/01/19 Radha Pantoja MD [address] [place] [address] Obstetrics Nurse Obstetrics/Gynecology 02/02/21 Yvonne Santos MD [address] [facility] [address] [facility] [address] [place] [address] Obstetrics Nurse Obstetrics/Gynecology 02/02/21 Regla Dias, IRAIDA [address] [place] [address] Food Production Machine Operator Obstetrics/Gynecology 02/02/21 Regional Retail Sales Manager Relationship Specialty Start Date End Date Farhat Vang MD [address] [facility] [address] [place] [address] PCP - General Family Medicine 04/16/21 Germania Galaviz, CLUTCH OPERATOR [address] [place] [address] Nurse Practitioner Obstetrics/Gynecology 11/01/19 Radha Pantoja MD [address] [place] [address] Obstetrics Nurse Obstetrics/Gynecology 02/02/21 Yvonne Santos MD [address] [place] [address] Obstetrics Nurse Obstetrics/Gynecology 02/02/21 LarissaRegla alcazar, [facility] [address] [facility] [place] [address] Food Production Machine Operator Obstetrics/Gynecology 02/02/21 Regional Retail Sales Manager Relationship Specialty Start Date End Date Farhat Vang MD [address] [facility] [address] [place] [address] PCP - General Family Medicine 04/16/21 Germania Galaviz, [facility] [address] [place] [address] Nurse Practitioner Obstetrics/Gynecology 11/01/19 Radha Pantoja MD [address] [place] [address] Obstetrics Nurse Obstetrics/Gynecology 02/02/21 Yvonne Santos MD [address] [facility] [place] [address] Obstetrics Nurse Obstetrics/Gynecology 02/02/21 Larissa, Reglasoren Arriaga, [facility] [address] [place] [address] Food Production Machine Operator Obstetrics/Gynecology 02/02/21 Regional Retail Sales Manager Relationship Specialty Start Date End Date Linda Sheppard DO [address] [facility] [place] [address] PCP - General Family Medicine 09/04/22 Regional Retail Sales Manager Relationship Specialty Start Date End Date Linda Sheppard DO [address] [facility] [place] [address] PCP - General Family Medicine 09/04/22 Regional Retail Sales Manager Relationship Specialty Start Date End Date Linda Sheppard DO [address] [place] [address] PCP - General Family Medicine 09/04/22 FOR [...] BE BASED ON THE PRIMARY CLINICAL RECORDS. [facility] [employer] [facility]. provides no warranty or guarantee of the accuracy or completeness of information in this document.
[2023-12-09 11:19] VITALS: BP 121/85; PULSE 113
== END 2023-12-09 11:45 | disposition home or self-care (01) ==
LOC: FBCO 07:06 → FBC 11:06
PROVIDERS: Visit Provider Obstetrics & Gynecology
DX: O30.003 Twin pregnancy, unspecified number of placenta and unspecified number of amniotic sacs, third trimester (principal); Z3A.36 36 weeks gestation of pregnancy
CPT/HCPCS: 59025

== ENCOUNTER 2023-12-13 06:59 | Outpatient (OUT) | payer BC, SELFPAY ==
--- OUTSIDE RECORDS SUMMARY | 2023-12-13 07:03 | XMS_ITS | CCD ---
Author Organization [facility] ion Partnership [facility] Care Team Providers Care Subsorter Name Role Phone Unavailable Primary Care Provider Unavailabl e No, Physician Primary Care Provider Unavailabl e HODA MADERA Unavailable Unavailable Primary Care Provider Unavailabl e No, Physician Primary Care Provider Unavailabl Germania Becerra Unavailable Roslyn Stevenson Unavailable Radha Pantoja Unavailable Yvonne Santos Unavailable [phone] Larissa, Regla Corina Unavailable No, Physician Primary [...] Pantoja MD Unavailable Yvonne Santos MD Unavailable [phone] Larissa KHOURY, Regla Corina Unavailable Ciera PEDRAZA, [...] Unavailable Linda Sheppard DO Primary Care Provider [phone] Jonathan Martinez Attending Unavailable Zac Fields Attending [...] Primary Care Unavailable NICHOLAS ROGER Attending Unavailable ARCHIE DUMONTY Attending Unavailable ARCHIE DUMONTY Attending Unavailable ELIANAMARK Attending Unavailable MARK DUMONT Attending Unavailable ELIANAMARK Attending Unavailable ELIANAARCHIEY Attending Unavailable ELIANA, MARK Attending Unavailable ELIANA, MARK Attending Unavailable BLAKE KAUFFMAN Referring Unavailable LINDA [...] day(s), # 14 tab(s), Refills(s) 0, Pharmacy: [facility], 160, cm, 05/11/23 21:53:00 EST, Height/Length [...] 0.5 unt/mg topical ointment (1 source) Start: End: bacitracin 500 UNIT/GM ointment Apply topically 2 [...] oral solution (2 sources) alpha-Adrenergic Agonist, Uncompetitive P-jwktls-B-aspartate Receptor Antagonist, Sigma-1 Agonist Start: End: take 5 mL by mouth four times daily as needed for cough brompheniramine-pse udoephedrine-DM (BROMFED DM) 2-30-10 MG/5ML syrup Take 5 mLs by mouth 4 times daily as needed for Congestion or Cough 240 mL 1 10/12/2021 11/11/2021 Active Start: 11-07-2020 End: 11-12-2020 take 5 mL by mouth three times daily as needed for cough ygwbieqhugciqym-cnthurkvmspmtkk-TN 2-30- 10 MG/5ML syrup Take 5 mLs by mouth 3 times daily as needed for Congestion or Cough 100 mL 0 11/07/2020 11/12/2020 Active cariprazine 1.5 mg oral capsule (7 sources) Atypical Antipsychotic Start: 04-01-2021 End: 03-07-2023 take 1 capsule by mouth once daily Vraylar 1.5 mg capsule Take 1.5 mg by mouth daily . 0 04/01/2021 Active chlorhexidine gluconate 1.2 mg/ml mouthwash (2 sources) Start: 05-11-2023 take 0.018 g by mouth twice daily Peridex 0.12% Liquid 0.018 gm, 15 mL, Oral, BID, 480 mL, Refill(s) 0, (swish and spit; do not swallow), [facility], 160, cm, 05/11/23 21:53:00 EST, Height/Length [...] Active Dextromethorphan / guaiFENesin (2 sources) Uncompetitive N-pbkose-N-asparta te Receptor Antagonist, Sigma-1 Agonist End: 06-24-2020 [...] day(s), # 15 tab(s), Refills(s) 0, Pharmacy: [facility], 160, cm, 05/13/23 11:33:00 EST, Height/Length [...] by mouth 0 Active vitamin with Ca-Iron-FA 27- mg Tab (7 sources) Start: 02-02-2021 take [...] for Pain. 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] Onset: 05-18-2019 [...] Translations: [39 weeks gestation of ] Onset: 06-24-2021 Resolved: 12-29-2020 12-29-2020 Episodic Sexually transmitted infections [...] Coag (Bld) [Time] 29.8 s Normal 23.9-33.8 [facility] Comment on above: Result Comment: IV Heparin Therapy Range: 62.0-94.0 Performed By: #### P T, PTT, BMP, CDP, TROPI #### [facility] [address] [place] [address] Infantryman: Guero Sandoval MD Basic Metabolic Profon 10-04 Anion gap [Moles/Vol] 13 mmol/L Normal 11-21 [facility] Comment on above: Performed By: #### P T, PTT, BMP, CDP, TROPI #### [facility] [address] [place] [address] Infantryman: Guero Sandoval MD BUN/CRE Ratio Result cannot be calculated, Creatinine below linear range. Normal 11-24 [facility] Comment on above: Performed By: #### P T, PTT, BMP, CDP, TROPI #### [facility] [address] [place] [address] Infantryman: Guero Sandoval MD Calcium [Mass/Vol] 8.7 mg/dL Normal 8.6-10.4 [facility] Comment on above: Performed By: #### P T, PTT, BMP, CDP, TROPI #### [facility] [address] [place] [address] Infantryman: Guero Sandoval MD Chloride [Moles/Vol] 105 mmol/L Normal 98-107 [facility] Comment on above: Performed By: #### P T, PTT, BMP, CDP, TROPI #### [facility] [address] [place], [place] [phone] Infantryman: Guero Sandoval MD CO2 [Moles/Vol] 18 mmol/L Low 20-[address] [facility] Comment on above: Performed By: #### P T, PTT, BMP, CDP, TROPI #### [facility] [address] [place] [address] Infantryman: Guero Sandoval MD Creatinine [Mass/Vol] mg/dL Low 0.5-0.9 [facility] Comment on above: Performed By: #### P T, PTT, BMP, CDP, TROPI #### [facility] [address] [place], [place] [phone] Infantryman: Guero Sandoval MD eGFR Can not be calculated Normal >60 [facility] Comment on above: Result Comment: These [...] P T, PTT, BMP, CDP, TROPI #### [facility] [address] [place], [place] [phone] Infantryman: Guero Sandoval MD Glucose [Mass/Vol] 111 mg/dL High 70-99 [facility] Comment on above: Performed By: #### P T, PTT, BMP, CDP, TROPI #### [facility] [address] [place], [place] [phone] Infantryman: Guero Sandoval MD Potassium [Moles/Vol] 3.8 mmol/L Normal 3.7-5.3 [facility] Comment on above: Performed By: #### P T, PTT, BMP, CDP, TROPI #### [facility] [address] [place], [place] [phone] Infantryman: Guero Sandoval MD Sodium [Moles/Vol] 136 mmol/L Normal 135-144 [facility] Comment on above: Performed By: #### P T, PTT, BMP, CDP, TROPI #### [facility] [address] [place] [address] Infantryman: Guero Sandoval MD Urea nitrogen [Mass/Vol] 6 mg/dL Normal 6-20 [facility] Comment on above: Performed By: #### P T, PTT, BMP, CDP, TROPI #### [facility] [address] [place], [place] [phone] Infantryman: Guero Sandoval MD Brain Natri. Peptideon 10-04 Pro-BNP <36 Normal 0-300 [facility] Comment on above: Result Comment: An a ge-independent cutoff point of 300 pg/ml has a 98% negative predictive value excluding acute heart failure. Performed By: #### B CLEANING HANDYMAN, TROPI #### [facility] [address] [place] [address] Infantryman: Thor Hernández MD CBC with Diffon 10-05-2023 Abs. Basophil 0.04 k/uL Normal 0.00-0.20 [facility] Comment on above: Performed By: #### P T, PTT, BMP, CDP, TROPI #### [facility] [address] [place] [address] Infantryman: Guero Sandoval MD Abs.Imm.Granulocyte 0.16 k/uL Normal 0.00-0.30 [facility] Comment on above: Performed By: #### P T, PTT, BMP, CDP, TROPI #### [facility] [address] [place] [phone] Infantryman: Guero Sandoval MD Abs.Neutrophil (Seg) 8.05 k/uL High 2.5-7.0 [facility] Comment on above: Performed By: #### P T, PTT, BMP, CDP, TROPI #### [facility] [address] [place] [address] Infantryman: Guero Sandoval MD Basophils/100 WBC (Bld) 0 % Normal 0-2 [facility] Comment on above: Performed By: #### P T, PTT, BMP, CDP, TROPI #### [facility] [address] [place] [phone] Infantryman: Guero Sandoval MD Eosinophils (Bld) [#/Vol] 0.08 10*3/uL Normal 0.00-0.4 0 [facility] Comment on above: Performed By: #### P T, PTT, BMP, CDP, TROPI #### [facility] [address] [place] [phone] Infantryman: Guero Sandoval MD Eosinophils/100 WBC (Bld) 1 % Normal 0-5 [facility] Comment on above: Performed By: #### P T, PTT, BMP, CDP, TROPI #### [facility] [address] [place] [phone] Infantryman: Guero Sandoval MD Erythrocyte distribution width (RBC) [Ratio] 13.1 % Normal 12.1-15.2 [facility] Comment on above: Performed By: #### P T, PTT, BMP, CDP, TROPI #### [facility] [address] [place] [address] Infantryman: Guero Sandoval MD Hematocrit (Bld) [Volume fraction] 28.8 % Low 36.0-46.0 [facility] Comment on above: Performed By: #### P T, PTT, BMP, CDP, TROPI #### [facility] [address] [place] [phone] Infantryman: Guero Sandoval MD Hemoglobin (Bld) [Mass/Vol] 9.8 g/dL Low 12.0-16.0 [facility] Comment on above: Performed By: #### P T, PTT, BMP, CDP, TROPI #### [facility] [address] [place] [address] Infantryman: Guero Sandoval MD Immature granulocytes/100 WBC (Bld) 2 % Normal 0-5 [facility] Comment on above: Performed By: #### P T, PTT, BMP, CDP, TROPI #### [facility] [address] [place] [address] Infantryman: Guero Sandoval MD Lymphocytes (Bld) [#/Vol] 1.61 10*3/uL Normal 1.00-4.8 0 [facility] Comment on above: Performed By: #### P T, PTT, BMP, CDP, TROPI #### [facility] [address] [place] [phone] Infantryman: Guero Sandoval MD Lymphocytes/100 WBC (Bld) 15 % Normal 15-40 [facility] Comment on above: Performed By: #### P T, PTT, BMP, CDP, TROPI #### [facility] [address] [place] [phone] Infantryman: Guero Sandoval MD MCH (RBC) [Entitic mass] 27.7 pg Normal 26.0-34.0 [facility] Comment on above: Performed By: #### P T, PTT, BMP, CDP, TROPI #### [facility] [address] [place] [address] Infantryman: Guero Sandoval MD MCHC (RBC) [Mass/Vol] 34.0 g/dL Normal 31.0-37.0 [facility] Comment on above: Performed By: #### P T, PTT, BMP, CDP, TROPI #### [facility] [address] [place] [address] Infantryman: Guero Sandoval MD MCV (RBC) [Entitic vol] 81.4 fL Normal 80.0-100.0 [facility] Comment on above: Performed By: #### P T, PTT, BMP, CDP, TROPI #### [facility] [address] [place] [address] Infantryman: Guero Sandoval MD Monocytes (Bld) [#/Vol] 0.77 10*3/uL Normal 0.00-1.00 [facility] Comment on above: Performed By: #### P T, PTT, BMP, CDP, TROPI #### [facility] [address] [place] [address] Infantryman: Guero Sandoval MD Monocytes/100 WBC (Bld) 7 % Normal 4-8 [facility] Comment on above: Performed By: #### P T, PTT, BMP, CDP, TROPI #### [facility] [address] [place] [address] Infantryman: Guero Sandoval MD Neutrophil (Seg) 75 % Normal 47-75 [facility] Comment on above: Performed By: #### P T, PTT, BMP, CDP, TROPI #### [facility] [address] [place] [address] Infantryman: Guero Sandoval MD Platelet mean volume (Bld) [Entitic vol] 10.2 fL Normal 6.0-12.0 [facility] Comment on above: Performed By: #### P T, PTT, BMP, CDP, TROPI #### [facility] [address] [place], [place] [phone] Infantryman: Guero Sandoval MD Platelets (Bld) [#/Vol] 275 10*3/uL Normal 140-450 [facility] Comment on above: Performed By: #### P T, PTT, BMP, CDP, TROPI #### [facility] [address] [place] [address] Infantryman: Guero Sandoval MD RBC (Bld) [#/Vol] 3.54 10*6/uL Low 4.00-5.20 [facility] Comment on above: Performed By: #### P T, PTT, BMP, CDP, TROPI #### [facility] [address] [place] [address] Infantryman: Guero Sandoval MD WBC (Bld) [#/Vol] 10.7 10*3/uL Normal 3.5-11.0 [facility] Comment on above: Performed By: #### P T, PTT, BMP, CDP, TROPI #### [facility] [address] [place] [address] Infantryman: Guero Sandoval MD CT CHEST PULMONARY EMBOLISM [...] Carlos Petersen MD 10/05/23 Final result Normal [facility] Liver Profileon 10-05-2023 Albumin [Mass/Vol] 3.0 g/dL Low 3.5-5.2 [facility] Comment on above: Performed By: #### L IVP #### [facility] [address] [place] [address] Infantryman: Guero Sandoval MD Alkaline Phos 74 U/L Normal 35-104 [facility] Comment on above: Performed By: #### L IVP #### [facility] [address] [place], [place] [phone] Infantryman: Guero Sandoval MD ALT [Catalytic activity/Vol] U/L Low 5-33 [facility] Comment on above: Performed By: #### L IVP #### [facility] [address] [place], [place] [phone] Infantryman: Guero Sandoval MD AST [Catalytic activity/Vol] 9 U/L Normal <32 [facility] Comment on above: Performed By: #### L IVP #### [facility] [address] [place], [place] [phone] Infantryman: Guero Sandoval MD Bilirubin [Mass/Vol] 0.3 mg/dL Normal 0.3-1.2 [facility] Comment on above: Performed By: #### L IVP #### [facility] [address] [place], [place] [phone] Infantryman: Guero Sandoval MD Bilirubin, Indirect Can not be calculated Normal 0.0-1.0 [facility] Comment on above: Performed By: #### L IVP #### [facility] [address] [place], [place] [phone] Infantryman: Guero Sandoval MD Bilirubin.indirect [Mass/Vol] mg/dL Normal <0.3 [facility] Comment on above: Performed By: #### L IVP #### [facility] [address] [place], [place] [phone] Infantryman: Guero Sandoval MD Protein [Mass/Vol] 5.9 g/dL Low 6.4-8.3 [facility] Comment on above: Performed By: #### L IVP #### [facility] [address] [place], [place] [phone] Infantryman: Guero Sandoval MD PTon 10-05-2023 INR Coag (PPP) [Relative time] 1.0 {INR} Normal [facility] Comment on above: Result Comment: Therapeutic Range: Moderate Anticoagulant Intensity: INR = 2.0-3.0 High Anticoagulant Intensity: INR = 2.5-3.5 Performed By: #### P T, PTT, BMP, CDP, TROPI #### [facility] [address] [place] [address] Infantryman: Guero Sandoval MD PT Coag (PPP) [Time] 13.6 s Normal 11.5-14.2 [facility] Comment on above: Performed By: #### P T, PTT, BMP, CDP, TROPI #### [facility] [address] [place], [place] [phone] Infantryman: Guero Sandoval MD Troponinon 10-05-2023 Troponin, High Sens <6 Normal 0-14 [facility] Comment on above: Result Comment: High Sensitivity Troponin values cannot be compared with other Troponin methodologies. Performed By: #### B CLEANING HANDYMAN, TROPI #### [address] [phone] Infantryman: Thor Hernández MD Troponin, High Sens <6 Normal 0-[address] [place] [address] Comment on above: Result Comment: High Sensitivity Troponin values cannot be compared with other Troponin methodologies. Performed By: #### P T, PTT, BMP, CDP, TROPI #### [facility] [address] [place] [address] Infantryman: Guero Sandoval MD UA w/Reflex Cultureon 2023 Bilirubin, SemiQt,Ur Negative Normal NEG [facility] Comment on above: Performed By: #### U MICAO, UAX #### [facility] [address] [place] [address] [phone] Infantryman: Thor Hernández MD Blood, Urine Negative Normal NEG [facility] Comment on above: Performed By: #### U MICAO, UAX #### [facility] [address] [place] [address] [phone] Infantryman: Thor Hernández MD Clarity (U) Cloudy Abnormal CLEAR [facility] Comment on above: Performed By: #### U MICAO, UAX #### [facility] [address] [place] [phone] Infantryman: Thor Hernández MD Color (U) Yellow Normal YEL [facility] Comment on above: Performed By: #### U MICAO, UAX #### [facility] [address] [address] Infantryman: Thor Hernández MD Glucose Ql (U) 1+ mg/dL Abnormal NEG [facility] Comment on above: Performed By: #### U MICAO, UAX #### [facility] [address] [place] [address] Infantryman: Thor Hernández MD Ketones Ql (U) TRACE Abnormal NEG [facility] Comment on above: Performed By: #### U MICAO, UAX #### [facility] [address] [place] [address] Infantryman: Thor Hernández MD Leukocyte esterase Test strip Ql (U) Negative Normal NEG [facility] Comment on above: Performed By: #### U MICAO, UAX #### [address] [address] Infantryman: Thor Hernández MD Nitrite,Ur Negative Normal NEG [facility] Comment on above: Performed By: #### U MICAO, UAX #### [facility] [address] [place] [phone] Infantryman: Thor Hernández MD PH,Ur 6.0 Normal 5.0-8.0 [facility] Comment on above: Performed By: #### U MICAO, UAX #### [facility] [address] [place] [address] Infantryman: Thor Hernández MD Protein Ql (U) TRACE Abnormal NEG [facility] Comment on above: Performed By: #### U MICAO, UAX #### [address] [address] Infantryman: Thor Hernández MD Spec. Goodwin,Ur 1.028 Normal 1.005-1.030 [facility] Comment on above: Performed By: #### U MICAO, UAX #### [address] [address] Infantryman: Thor Hernández MD Urobilinogen,Ur Normal Normal 0.0-1.0 [facility] Comment on above: Performed By: #### U MICAO, UAX #### [address] [address] Infantryman: Thor Hernández MD Urinalysis,Microon 4 Bacteria MODERATE Abnormal NONE [facility] Comment on above: Performed By: #### U MICAO, UAX #### [address] [address] Infantryman: Thor Hernández MD Casts 2 TO 5 HYALINE Normal 0-8 [facility] Comment on above: Result Comment: Refe rence range defined for non-centrifuged specimen. Performed By: #### U MICAO, UAX #### [address] [address] Infantryman: Thor Hernández MD Epithelial cells LM Ql (Urine sed) 20 TO 50 Normal 0-5 [facility] Comment on above: Performed By: #### U MICAO, UAX #### [address] [address] Infantryman: Thor Hernández MD Urine RBC's 0 TO 2 Normal 0-4 [facility] Comment on above: Result Comment: Refe rence range defined for non-centrifuged specimen. Performed By: #### U MICAO, UAX #### [facility] [address] [place] [address] Infantryman: Thor Hernández MD Urine WBC's 5 TO 10 Normal 0-5 [facility] Comment on above: Performed By: #### U KAYDEN UAX #### [facility] [address] [place] [address] Infantryman: Thor Hernández MD AFP, Maternalon 07-28-2023 Determined by Ultrasound Normal [facility] Comment on above: Performed By: #### T SH, FT4, FT3 #### [facility] [address] [place] [address] Infantryman: Thor Hernández MD #### AAFPM #### [facility] [address] [place] [address] Infantryman: Thor Hernández MD [facility] [address] [place], [place] [phone] Infantryman: Tim Vizcarra MD Due Date SEE NOTE Normal [facility] Comment on above: Result Comment: Resu lts for Estimated Due Date: 01 06 24 Performed By: #### T SH, FT4, FT3 #### [facility] [address] [place] [address] Infantryman: Thor Hernández MD #### AAFPM #### [facility] [address] [place] [address] Infantryman: Thor Hernández MD [facility] [address] [place] [address] Infantryman: Tim Vizcarra MD Family History No Normal [facility] Comment on above: Performed By: #### T SH, FT4, FT3 #### [facility] [address] [place] [phone] Infantryman: Thor Hernández MD #### AAFPM #### [facility] [address] [place] [address] Infantryman: Thor Hernández MD [address] [phone] Infantryman: Tim Vizcarra MD Gestat Age (exact) 16 wks, 4 days Normal [facility] Comment on above: Performed By: #### T SH, FT4, FT3 #### [address] [address] Infantryman: Thor Hernández MD #### AAFPM #### [address] [address] Infantryman: Thor Hernández MD [address] [phone] Infantryman: Tim Vizcarra MD Ins Req Matern Diab No [facility] Comment on above: Performed By: #### T SH, FT4, FT3 #### [address] [address] Infantryman: Thor Hernández MD #### AAFPM #### [address] [address] Infantryman: Thor Hernández MD [address] [phone] Infantryman: Tim Vizcarra MD Interpretation Screen Neg Normal [facility] Comment on above: Result Comment: (NOT E) INTERPRETATION: SCREEN NEGATIVE for open spina bifida Neural Tube Defects (NTD) Negative Pre-Test Post-Test Cutoff Neural Tube Defects Risks 1:452 1:3230 1:103 Comments: The risk of an open neural tube defect is less than the twin screening cut-off. This test was developed and its performance characteristics determined by [facility]. It has not been cleared or approved by the [place] Food and Drug Administration. This test was performed in a CLIA certified laboratory and is intended for clinical purposes. Performed By: #### T SH, FT4, FT3 #### [address] [address] Infantryman: Thor Hernández MD #### AAFPM #### [facility] [address] [place] [address] Infantryman: Thor Hernández MD [facility] [address] [place] [address] Infantryman: Tim Vizcarra MD [age] [facility] Comment on above: Performed By: #### T SH, FT4, FT3 #### [facility] [address] [place] [address] Infantryman: Thor Hernández MD #### AAFPM #### [address] [address] Infantryman: Thor Hernández MD [address] [phone] Infantryman: Tim Vizcarra MD Maternal Race Nonblack [facility] Comment on above: Performed By: #### T SH, FT4, FT3 #### [facility] [address] [place] [address] Infantryman: Thor Hernández MD #### AAFPM #### [address] [address] Infantryman: Thor Hernández MD [facility] [address] [place], [place] [phone] Infantryman: Tim Vizcarra MD Maternal Weight 239.0 lbs. [facility] Comment on above: Performed By: #### T SH, FT4, FT3 #### [facility] [address] [place] [address] Infantryman: Thor Hernández MD #### AAFPM #### [address] [address] Infantryman: Thor Hernández MD [facility] [address] [place] [address] Infantryman: Tim Vizcarra MD MoM for AFP 1.71 Normal [facility] Comment on above: Performed By: #### T SH, FT4, FT3 #### [facility] [address] [place] [address] Infantryman: Thor Hernández MD #### AAFPM #### [address] [address] Infantryman: Thor Hernández MD [address] [address] [phone] Infantryman: Tim Vizcarra MD Number of Fetuses Twins Normal [facility] Comment on above: Performed By: #### T SH, FT4, FT3 #### [address] [address] Infantryman: Thor Hernández MD #### AAFPM #### [address] [address] Infantryman: Thor Hernández MD [address] [phone] Infantryman: Tim Vizcarra MD Patient's AFP 46 ng/mL Normal [facility] Comment on above: Performed By: #### T SH, FT4, FT3 #### [facility] [address] [place] [address] Infantryman: Thor Hernández MD #### AAFPM #### [address] [address] Infantryman: Thor Hernández MD [facility] [address] [place] [address] Infantryman: Tim Vizcarra MD Smoking Unknown Normal [facility] Comment on above: Performed By: #### T SH, FT4, FT3 #### [facility] [address] [place] [address] Infantryman: Thor Hernández MD #### AAFPM #### [address] [address] Infantryman: Thor Hernández MD [address] [address] Infantryman: Tim Vizcarra MD Specimen See Note [facility] Comment on above: Result Comment: (NOT E) Initial sample Performed By: HERMEL DELOR [address] [place] [address] Director Life Sales: Morro Modi MD, PhD CLIA Number: [id number] Performed By: #### T SH, FT4, FT3 #### [address] [address] Infantryman: Thor Hernández MD #### AAFPM #### [address] [address] Infantryman: Thor Hernández MD [address] [phone] Infantryman: Tim Vizcarra MD [facility], [facility] 07-27-2023 Current Smoking INFORMATION NOT PROVIDED [facility] Comment on above: Performed By: #### T SH, FT4, FT3 #### [address] [address] Infantryman: Thor Hernández MD #### AAFPM #### [address] [address] Infantryman: Thor Hernández MD [address] [address] Infantryman: Tim Vizcarra MD [facility] Comment on above: Performed By: #### T SH, FT4, FT3 #### [address] [address] Infantryman: Thor Hernández MD #### AAFPM #### [address] [address] Infantryman: Thor Hernández MD [address] [phone] Infantryman: Tim Vizcarra MD Diabetic Negative [facility] Comment on above: Performed By: #### T SH, FT4, FT3 #### [facility] [address] [place] [address] Infantryman: Thor Hernández MD #### AAFPM #### [address] [address] Infantryman: Thor Hernández MD [address] [phone] Infantryman: Tim Vizcarra MD Donor Egg INFORMATION NOT PROVIDED [facility] Comment on above: Performed By: #### T SH, FT4, FT3 #### [address] [address] Infantryman: Thor Hernández MD #### AAFPM #### [address] [address] Infantryman: Thor Hernández MD [address] [phone] Infantryman: Tim Vizcarra MD Estimated Due Date 01/06/2024 [facility] Comment on above: Performed By: #### T SH, FT4, FT3 #### [facility] [address] [place] [address] Infantryman: Thor Hernández MD #### AAFPM #### [address] [address] Infantryman: Thor Hernández MD [address] [place] [address] Infantryman: Tim Vizcarra MD Family History Negative [facility] Comment on above: Performed By: #### T SH, FT4, FT3 #### [facility] [address] [place] [address] Infantryman: Thor Hernández MD #### AAFPM #### [address] [address] Infantryman: Thor Hernández MD [facility] [address] [place] [address] Infantryman: Tim Vizcarra MD In Vitro Fertalizat INFORMATION NOT PROVIDED [facility] Comment on above: Performed By: #### T SH, FT4, FT3 #### [address] [address] Infantryman: Thor Hernández MD #### AAFPM #### [address] [address] Infantryman: Thor Hernández MD [address] [phone] Infantryman: Tim Vizcarra MD LMP date 2023 [facility] Comment on above: Performed By: #### T SH, FT4, FT3 #### [address] [address] Infantryman: Thor Hernández MD #### AAFPM #### [address] [address] Infantryman: Thor Hernández MD [facility] [address] [place] [address] Infantryman: Tim Vizcarra MD Maternal date 1990 [facility] Comment on above: Performed By: #### T SH, FT4, FT3 #### [facility] [address] [place] [address] Infantryman: Thor Hernández MD #### AAFPM #### [address] [address] Infantryman: Thor Hernández MD [address] [address] Infantryman: Tim Vizcarra MD Maternal Weight 239 Normal [facility] Comment on above: Performed By: #### T SH, FT4, FT3 #### [address] [address] Infantryman: Thor Hernández MD #### AAFPM #### [address] [address] Infantryman: Thor Hernández MD [address] [address] Infantryman: Tim Vizcarra MD Monochorionic Twins Positive Normal [facility] Comment on above: Performed By: #### T SH, FT4, FT3 #### [address] [address] Infantryman: Thor Hernández MD #### AAFPM #### [address] [address] Infantryman: Thor Hernández MD [address] [address] Infantryman: Tim Vizcarra MD Patient Weight Units LBS Normal [facility] Comment on above: Performed By: #### T SH, FT4, FT3 #### [facility] [address] [place] [address] Infantryman: Thor Hernández MD #### AAFPM #### [address] [address] Infantryman: Thor Hernández MD [address] [address] Infantryman: Tim Vizcarra MD Race (Maternal) Normal [facility] Comment on above: Performed By: #### T SH, FT4, FT3 #### [address] [address] Infantryman: Thor Hernández MD #### AAFPM #### [address] [address] Infantryman: Thor Hernández MD [address] [phone] Infantryman: Tim Vizcarra MD Repeat Specimen INFORMATION NOT PROVIDED [facility] Comment on above: Performed By: #### T SH, FT4, FT3 #### [address] [address] Infantryman: Thor Hernández MD #### AAFPM #### [address] [address] Infantryman: Thor Hernández MD [address] [address] Infantryman: Tim Vizcarra MD Valproic/Carbamazep INFORMATION NOT PROVIDED [facility] Comment on above: Performed By: #### T SH, FT4, FT3 #### [address] [address] Infantryman: Thor Hernández MD #### AAFPM #### [address] [address] Infantryman: Thor Hernández MD [address] [address] Infantryman: Tim Vizcarra MD Thyroxine, Freeon 07-27-2023 Thyroxine, Free 1.0 ng/dL Normal 0.92-1.68 [facility] Comment on above: Performed By: #### T SH, FT4, FT3 #### [address] [address] Infantryman: Thor Hernández MD #### AAFPM #### [address] [address] Infantryman: Thor Hernández MD [address] [address] Infantryman: Tim Vizcarra MD Protein,Tot,[place] [facility] 2023 Creatinine [Mass/Vol] 273.0 mg/dL High 28.0-217.0 [facility] Comment on above: Performed By: #### U RTPRT #### [address] [address] Infantryman: Thor Hernández MD Tot Prot. Conc. 21 mg/dL Normal [facility] Comment on above: Result Comment: No n ormal range established. Performed By: #### U RTPRT #### [address] [address] Infantryman: Thor Hernández MD TP/Cre Ratio 0.08 Normal [facility] Comment on above: Performed By: #### U RTPRT #### [address] [address] Infantryman: Thor Hernández MD T3, Freeon 3 Free T3 [Mass/Vol] 3.40 pg/mL Normal 2.00-4.40 [facility] Comment on above: Performed By: #### T SH, FT4, FT3 #### [address] [address] Infantryman: Thor Hernández MD #### AAFPM #### [address] [address] Infantryman: Thor Hernández MD [facility] [address] [place] [address] Infantryman: Tim Vizcarra MD Thyroid Stim. Horm.on 2023 Thyroid Stim. Horm. <0.01 Low 0.27-4.20 [facility] Comment on above: Performed By: #### T SH, FT4, FT3 #### [facility] [address] [place] [address] Infantryman: Thor Hernández MD #### AAFPM #### [facility] [address] [place] [address] Infantryman: Thor Hernández MD [facility] [address] [place] [address] Infantryman: Tim Vizcarra MD ED Note-Physicianon 05-14-19 ED [...] see dentistry until she is cleared by [facility]CTOR. She does not have an appointment for [facility] IN[employer]CTOR to next week. She has no OB [...] day(s), # 15 tab(s), Refills(s) 0, Pharmacy: [facility], 160, cm, 05/13/23 11:33:00 EST, Height/Length [...] Oral, q6hr Follow-up With When Contact Information [facility] In 3 days 05/16/2023 EDT [address] [place] [address] Business (1) Additional Instructions: Dentistry follow-up Patient [...] made to ensure accuracy, however, inadvertently computerized office systems technology instructor mistakes may be present. Appropriate healthcare PPE was used in evaluating this patient. Problem List/Past Medical History Ongoing Acute hepatitis C Anxiety Apnea, sleep Dental caries PCOS (polycystic ovarian syndrome) Historical No qualifying data Procedure/Surgical History Delivery. Medications Inpatient ampicillin-sulbacta m additive + Sodium Chloride 0.9% intravenous solution 100 (more content not included)... Normal [facility] Comment on above: Result Comment: Elec tronically Signed By: Greg Stratton PA-C\.br\Date and Time Signed: 05/13/23 12:45 EST\.br\Electronically Co-Signed By: Jonathan Martinez DO\.br\Date and Time Co-Signed: 05/14/23 07:40 EST Consent for Treatmenton Consent for Treatment [id number] EC#1.00TIFF Normal [facility] Discharge Instructionson Discharge Instructions [id number] 53#1.00TIFF Normal [facility] ED Clinical Summaryon 2023 ED Clinical Summary [place] [id number] ED Clinical Summary Person Information Name: TIA MONROE Maria Elena/[facility] Age: 33 Years : 1990 Sex: Female Language: Bruneian PCP: Linda Sheppard DO Marital Status: Visit [...] 13:02:19 05/13/2023 13:02:19 ADDRESS: [address] [facility] [id number] PHYS DOC NOTES: MEDICAL INFORMATION: Prescriptions Given: New Medications [facility], [address] [place], [place] [id number], [phone] oxycodone (oxyCODONE 5 mg Tab) 1 Tablets [...] Dental Abscess Follow up: With: Address: When: [place] [phone] Business (1) In 3 days 05/16/2023 Comments: Dentistry follow-up DIAGNOSIS: Dental abscess Normal [facility] ED Patient Education Noteon 05-13-2023 [...] these instructions at home: Medicines ? Take inxl-jsg-efbcysv and prescription medicines only as told by [...] mouth. ? (more content not included)... Normal [facility] ED Patient Summaryon 024 ED Patient Summary [address] [address] Patient Discharge Instructions Person Information Name: TIA MONROE Age: 33 Years Arrival Date: 05/13/2023 11:19:01 Discharge Diagnosis: Dental abscess Primary Care Physician: Linda Sheppard DO Provider Information Primary Provider: Jonathan Martienz DO Advanced Art History Professor:Greg Stratton PA-C The exam and treatment you received in the Emergency Department were for an urgent problem and are not intended as complete care. It is important that you follow up with a doctor, nurse practitioner, or physician?s seo assistant for ongoing care. If your symptoms become worse or you do not improve as expected and you are unable to reach your usual health care provider, you should return to the Emergency Department. We are available 24 hours a day. TIA MONROE has been given the following list of patient education materials, prescriptions and follow-up instructions: Follow-up Instructions: With: Address: When: ALOHA [address] [address] Business (1) In 3 days 05/16/2023 Comments: Dentistry follow-up In the event that this physician does not participate in your insurance network, please consult with your insurance company to find a nearby participating provider. Patient Education Materials: Dental Abscess A MESSAGE TO ALL PATIENTS REGARDING OPIOIDS PRESCRIPTION OPIOIDS: WHAT YOU NEED TO KNOW Prescription opioids can be used to help relieve jbmxjigv-nc-klrjia pain and are often prescribed following a [...] be struggling with addiction, tell your health client care representative and ask for guidance or call [facility] National Helpline at 1-954-2 (more content not included)... Normal [facility] Discharge Instructionson Discharge Instructions [id number]#1.00TIFF Normal [facility] ED Clinical Summaryon 2023 ED Clinical Summary [address] [address] ED Clinical Summary Person Information Name: TIA MONROE Maria Elena/[facility] Age: 33 Years : 1990 Sex: Female Language: Bruneian PCP: Linda Sheppard DO Marital Status: Visit [...] 23:59:00 05/11/2023 23:59:00 ADDRESS: [address] [facility] [id number] PHYS DOC NOTES: MEDICAL INFORMATION: Prescriptions Given: New Medications [facility], [address], [place] [id number], [phone] amoxicillin-clavula cindi (Augmentin 875 mg oral tablet) [...] Medication PATIENT EDUCATION INFORMATION: Instructions: Dental Pain, Sisf-wu-Qryo Follow up: With: Address: When: Linda Sheppard DO [address], [address] [place] [address] In 3 days 05/14/2023 DIAGNOSIS: 1:Pain, dental; 2:Infected dental caries; 3:First trimester ; Periapical abscess without sinus Normal [facility] ED Note-Physicianon 05-12-19 ED Note-Physician Basic Information Time Seen: Violet Walters PA-C 05/11/2023 22:59 Chief Complaint pt arrives for c/o dental pain on the right upper side. states cannot see her denitist d/t being . pt states seen in [place] and started on amoxcillin. History of Present Illness Patient is a 7-week 33-year-old female with history of PCOS that presents to the ED with her for evaluation of dental pain. Patient says pain started on Tuesday. She localizes it to the right upper jaw, radiates into her face ear and cheek. She went to [place] [facility] yesterday and was initiated on amoxicillin [...] not scheduled to see them until the 15 of this month. She said she called [...] day(s), # 14 tab(s), Refills(s) 0, Pharmacy: [facility], 160, cm, 05/11/23 21:53:00 EST, Height/Length Dosing, 110, kg, 05/11/23 21:53:00 EST, Weight Dosing chlorhexidine topical, 0.018 gm, 15 mL, Oral, BID, 480 mL, Refill(s) 0, (swish and spit; do not swallow), [facility], 160, cm, 05/11/23 21:53:00 EST, Height/Length Dosing, 110, kg, 05/11/23 21:53:00 EST, Weight Dosing (more content not included)... Normal [facility] Comment on [...] these instructions at home: Medicines ? Take mlod-taa-dwgfich and prescription medicines only as told by [...] to the area. Brushing your teeth ? Gordon your teeth twice a day using a [...] when you eat or drink. ? Take jwmz-dtp-yrdnxxv and prescription medicines only as told by your dentist. ? Watch your dental pain for any changes. Let your dentist know if symptoms get worse. This information is not intended to replace advice given to you by your health care provider. Make sure you discuss any questions you have with your health care provider. Document Revised: 11/26/2020 Document Reviewed: 11/26/2020 [employer] Patient Education ? 2022 [employer]. Normal [facility] ED Patient Summaryon 024 ED Patient Summary [address] [address] Patient Discharge Instructions Person Information Name: TIA MONROE Age: 33 Years Arrival Date: 05/11/2023 21:25:54 Discharge Diagnosis: 1:Pain, dental; 2:Infected dental caries; 3:First trimester ; Periapical abscess without sinus Primary Care Physician: Linda Sheppard DO Provider Information Primary Provider: Zac Fields M.D. Advanced Art History Professor:Violet Walters PA-C The exam and treatment you received in the Emergency Department were for an urgent problem and are not intended as complete care. It is important that you follow up with a doctor, nurse practitioner, or physician?s seo assistant for ongoing care. If your symptoms [...] Instructions: With: Address: When: Linda Sheppard DO [address] [place] [address], [place] , [facility] [address] [place] [address] In 3 days 05/14/2023 In the event that this physician does not participate in your insurance network, please consult with your insurance company to find a nearby participating provider. Patient Education Materials: Dental Pain, Ltja-sf-Rcek A MESSAGE TO ALL PATIENTS REGARDING OPIOIDS PRESCRIPTION OPIOIDS: WHAT YOU NEED TO KNOW Prescription opioids can be used to help relieve izpcdoex-zq-egxumx pain and are often prescribed following a [...] be struggling with addiction, tell your health client care representative an (more content not included)... Normal [facility] Consent for Treatmenton 03-0 Consent for Treatment [id number] 96#1.00TIFF [facility] Progesteroneon 12-28-2022 Progesterone 12.60 ng/mL Normal [facility] Comment on above: Result Comment: Female: Follicular phase <0.19 ng/mL Ovulation phase 0.06-4.14 ng/mL Luteal phase 4.11-14.5 ng/mL Postmenopausal <0.13 ng/mL Performed By: #### P NICKY #### [facility] [address] [place] [address] Infantryman: Thor Hernández MD Progesteroneon 11-24-2022 Progesterone 7.18 ng/mL High 0.0-0.15 [facility] Comment on above: Result Comment: Female: Follicular phase <0.19 ng/mL Ovulation phase 0.06-4.14 ng/mL Luteal phase 4.11-14.5 ng/mL Postmenopausal <0.13 ng/mL Performed By: #### P NICKY #### [employer] [facility] [address] [place] [address] Infantryman: Thor Hernández MD , Urineon HCG ( test) Ql (U) Negative [facility] XR ANKLE RIGHT (MIN 3 VIEWS) on 09-04-2022 FINDINGS/IMPRESSION : No acute displaced fracture identified. Ankle mortise is symmetric. There is a 1 mm tiny calcified body which is remote appearing near the distal fibular tip. Minimal ankle soft tissue edema. [facility] EXAM: XR ANKLE RIGHT (MIN 3 VIEWS) INDICATION: Reason for exam:->swelling COMPARISON: None. TECHNIQUE: Radiographs as described above [facility] Bettye Johnson MD - 09/04/2022 EXAM: XR ANKLE RIGHT (MIN 3 VIEWS) INDICATION: Reason for exam:->swelling COMPARISON: None. TECHNIQUE: Radiographs as described above IMPRESSION: FINDINGS/IMPRESSION : No acute displaced fracture identified. Ankle mortise is symmetric. There is a 1 mm tiny calcified body which is remote appearing near the distal fibular tip. Minimal ankle soft tissue edema. [facility] Radiology Study observation (narrative) [facility] XR ANKLE RIGHT (MIN 3 VIEWS) Ordered By: Bettye Johnson on 09-04-2022 [facility] Work Phone: Coding Summary.on 07-09-2022 Coding Summary. CD:[id number] bWw+PGhlYWQ+PF9IWDR dO22ngEBfqO1rZ3BKUL lOSywgQVBQTElOSyIgb cYmWW2hkWGcHPXj IC8+WA8wYHWbZwcksGC oy9P0cLN0S47aft0zKU bhlEX5PUFjFkVwoswgs 2nfcTd1SQxgBtstOdVc MWOljI18PRH6hG93Aa6 3zXWsuIQtj5mjkWc2Xb FfUOSyQYB2aErmXHkie 5KjJTFhN16muZFzt4D0 IGNvbGxhcHNlOyBlbXB 8iH2gXZnreedkp7tuga ejUgo1ap77mXGlt3Q8o YO5T9UiicS2TVCtcOHl YbfelHLRfG5wlhirg1l gynpxPlZnSHXxJTt5NE v9IURocKzcXhYuYH34U HV0DBSfmhYlW9XbOXWp pZjyUwV3h9G7Cg0WB0G MFyrzC9BFBUVTPUtfwX Q+RN73er70S5WkGqirV ph4EYNiAQG7oCG5fS8e DPBzENawe1D2tMQ5G4G itbNwem0in9auFPBaPW wbT15wuEAww0P4PLCcn AT7XCNcdYzbQmRutH86 Oyc+SHJatWkmg1TuMcx dq5fdm5ivwYg3FtyvPB GussQjoYiyQHH2j8CxG p3uNEHuuVH1fUS3uW2y KnBtLgY8LWzsL686AqL zfXBtUmfzU90sH2DcbW A+IKCqOqp0XFCevFqqS M1gN5RcQXThrorrjSKi kRqwTW4uUYLxefytDBT xeN1zEXSoG1z8CqHbFp H7KSouB1KqKZMnzxpwD k32rB3rBwDuToD6DLri D7DdurK0SXRrbVEuWVp zGSL4F52in6G2MEWhQG SsWZQ2xDQ1eC3eaAgwb jogbGVmdDsgdmVydGlj JEjfXEioE840YMMnbFn nPkNvZGluZyBEYXRlOi AgMDUvMDUvMjAyMzwvd GQ+XLRtDDI9hWhtHVFp fODuOKltJg0okKppuTf jVL9sDPWaynbmMGTstB 5kFCIcaOJgpPbnHR7zV FIwttift638WzOiSUR1 WRTpeXXbS8KhdH6gQsA cWXVoCABdH1XhlHAfAH oyR905CFlgEgP9EVOfl nYlA7XdKOFbeGngGdX3 y6P7Nf5Ij8ByeiydL2G dkHQlHiBoOeosHUh6Z8 RkPjwvdHI+OX40HEOpN K44JSb2IUN7aAsxETzy YTFkY9TjkM3wRoNjJPA kZGRkOyc+PHRhYmxlIH dpZHRoPScxMDAlJyBzd KesUD8jYe0eKQYhDGMo fJypoYZsYaIri6cuSMM cAHhtKR2vvHbeA2MjaP L9UNQqp0c2Gd71V29kH 3JvdXA+EOHjlVT7tEE9 oH9xLeRrFuI9IDzhP03 9GtVomFUbCmzbl2vpc1 elsUg5WkD5BIZmblLjv LziONQ9p4TbDy61O23a IHdpZHRoPSIxNSUiIHZ cvBeqmg8vkF1nGf2+PG DbeHP3yME3pF1sSmXkM bR7QOyiS102LfQreCRd Pwhsp9nqz1tdlNw6XgO wXBDrxuHwmSwyWHJ7v1 WpXu57O5NvtToiu8TyA cf3tv93nIIcb3B9lGO9 R7MrCIGqdrrbjIDfvIz zWZ6rRGZacvgjXFUnmY 5pWMQhH9a5OcEpZjQ5Y KwjD7FertN3HDIoxMFu FAHcgGLJzJ4qldrrr2x nloctSnCvBVLkEDc0DM p4XWKffWksHlVqLKR6C vS1TPK1nUJzxP9deJrt uozcaD8cVli+XED8zIG syOYFAV4uMnsbiHX+PH PaPRG1hPqdHJblFXWpq D1eXZZgB5x7EtRfNxL8 QWguS8SrhoZ5SXCueIA vFNYnuSWRnB9jgxdgk1 kmjahrOePdZUDkOQx5I Qf7UCPdkUjrDaRpCVY1 GfS1IIO8gRKqzA4oaGp lawdkfV7qDqh+QmlydG puXMM4CGt0J3KhUba2R VLzpHjnCN5taXVsSWvn Mc9poPekqGyyAS1tYFQ mzhsuv869YhSje6hsLA BomLTiGFbyRGH5D74wu 8H7LFZiKUQrPVZ1kPT0 fU1njQjmrnqbzQQeoLb gdmVydGljYWwtYWxpZ2 89QHHrmEkjJuZqUPf8I 9JjGon6OZCjhZchLT0j sBKlOZahRp3zoSaetEa gTH6bLKJcmevxc074Uj Ayx2xtROCmvBTwDQwcP CA9E34ep9Y3ZGFrKMHq DAX6yNL7bV5mpQozmip gbGVmdDsgdmVydGljYW jxIDtwK709ZIKqdVlbX eEcsGq8R7VqDfx4QRTp lVoyRQ3yfCWqSFzfJn9 rzKkbmNqwBK9fQMOlbq hmz539RdIbn5rkEUWrq VOdFLtaCZN4C70hk5O6 YPSuTQRkOMV3oID1eP2 hbGlnbjogbGVmdDsgdm TpkCsnHWnaAAppY034S HRvcDsnPlBhdGllbnQg POmbNJm8E5BxFafxpOM +ZI11PQHgKW01pHFndU Hto9canFa2LeFfWQCgT AS8tLefFCyvw8MuFNBo W91mwKDwz3X9BBBtlYo uaUFoDdAylGY9hL6pBG jauzghq0afljklZlyfh 2psaj32fF51S26tRTzs ZHRoPSIzMCUiIHZhbGl vql5zzZ6vOr3+PGNvbC P3lYX8iB3lYZXeViU2M ByxI641EjQrgHEvIxaw v9eei4gmcXy9TlX2PMR rhkTosBorRDJ3w3XpIu 09U96mGBtaDIIvVGRmQ FKkGDWepSrfbk6weH2k Ii8+FFLsfEK0jWK4zY8 pRvNeSoL6BGirQ762Jr QvvBChOxqjE78oN0Ifm XA+SMMgPck5DQJuzXph KV2hiKTsDLzmFj8nJAX 8CsFwQxWlJDcaL6GkVD MvsnmlzzpgvKG5PKHyM YJadR06Ym2jqCywYRHu kLPBpV3lgndoe1ztlvl gOaLvZIGaDEh1GSp4DV AynKdlGdLfEOI4VpQ6D EC9jAMnfO2zuVlnplwd jA2oE9XxAWZpjhdjTh5 4bA8tTaEwLfK0UBioHm c+Eq8RRxKGQaqaFwFNF kRJRTwvdGQ+PHRkIHN0 sYnlJHmlCNRojO8fDLV fJ4i8OcOxPhM3BVhbB2 WqKEEnzkioOv15vA9uK pOxZxL1QJnhW2YnclD0 XIJbkOIbKJqaCQL9C20 vi6F8MDVuHDJaKED8gQ K5dR4uyWpbzcaexUEyd DsgdmVydGljYWwtYWxp E356ALRrmWupWmLqZgT 1AeJ1RXF9Z3VwKjb7LV OtoTgfBR8nnCHoQKxfG m0pbUqybGqaPI7wPSQc fwkaDGFjkF2aPCXyaCX rlMxoQQ2sAVSakznxn2 87QyLtXEO0VILwwUTaH 1HrrD2aIzGdRZCzLOWr Q1CyoLWfDUfjO671YWt xViN2AUHwdgHoP9YsQS SuiGszHrN6v0J6Oj7mV iBZZWFyczwvdGQ+PHRk WYS7hYnpKGdbFRQguH4 kWBJoC2p7NkMtWwQ4EX zxA6SwFHVwrnhyMf83r P5lBsTgXtY4ZZixF8Gq zhI3BTPidLTyNSmnCYU 4G49hb7X7AKMrIWXrMM R9tQY6wN0twGlrovabo GVmdDsgdmVydGljYWwt QMdkQ588PIUjwQhbIdR lbWFsZTwvdGQ+PHRkIH U1tIwqFRbzGMHuaS0tV OWlX3u2YnRnIhN6JIfl J7ErPBZsfgcaPt53fK1 gLhWfEvE4SKacF2Rivt E6YBKlsEMeFYoqLKQ0T 97ar7Z1WXXnOJDcBVM9 jQT2tV6lsLphkvwiqSK mdDsgdmVydGljYWwtYW aiS830BRSoqCxqGoQas T6xRDGeREplgTEivPgy dGQ+PS64hi85B9SmUmp bJft1GLCcEVC6iHB7xC 5dCZGkKRvrm5V8vQG0F 4JygeSknh6fn1rrWLLs MAphH91vfFSck7O3CKK hnGH5EWRbyEubMqVugD 93Oyc+WLIwgIbhs5ZiM famt5oir8xbaDg6OsGb IJDnswNnhLhmAGR1a1M tLn30Q81aMJddWWDhXJ PsPZVsQBVxwPylfb4pl G9wIi8+ACVryTX6wSF6 gY3wGjCkBxV2MWygH90 0ImEwbBQyNfsda1xld2 snaZl4BwUmQBKrsqTmr TjgGDT5g9GlYe14I6Lp uGoos1FqQwl0cl53tQN ik0P9eWG7W6LqVRNtvf lliIDodXstXD0sSUAzt lstVLAthP9iVVMoA6h7 MjPbStJ6YInsJ1ZxnsI 6IGJvbGQgMTBwdCBUaW 3zzvpqu9hryhxtXoEuK GNpQEz9XHh9SRVqvOrr PgJtQLJ5IyN0NGC7gCG xoD9lwUbkneuqhP8oEj c+WRm9s3zfdIQsEZ5th UZ6FO36DD73lOQvd3C4 aBV5O5VwUGEctarlrqm bxCL2NDTbRPGslR20My 5zyNfxXr0sRFEdOPC6C EEooFCoT8GubC1lXdIg ABByUGRkS6HyoWOrOXz yO568OVurJsO8UYLbwd EmX9XlULExnYmjEsX3w 0S9Ke3ARZ58YW28IO50 lTAxf1O2cUK8W6LlAFZ gqchablgcmUN0VYToAN IcnY22Rc6wxOslUc5cM QXyDAB1UJVseKWhQ8Uo aL9dLvEbRQIjNLVlE6J spXFlDZqbW956HBeaYd O2IEDqwzYbE4CkBHMbn HogZoV7u9N6Lt8YOq77 XM30RZ04eFKyg2N3aMO 8U8RuUODzsokmqkxguK A1LNYgFZQkuN43Jr8sy RsgKm1oDRXcNRQ1MIIn rQAgC7BmfD2bIsFmCNB xVBGwR4HqrNImGAonU1 33SOluJyJ6YIUvtdXuB 1XwTZCuaNpbXiC7l3S1 Dm4MYEpdwli1B1WeTts vdHI+VW30QVWwQQ64eV NxwCHix3kyrJe4EvSfV NZtPJY4nOxdUJbat3Bx OPMoS47k (more content not included)... Normal [facility] Consultation Noteon 07-07-19 Consultation Note [...] Problems Acute hepatitis C / SNOMED CT 386561693 / Confirmed Anxiety / SNOMED CT 75474742 / Confirmed Apnea, sleep / SNOMED CT 455641824 / Confirmed Dental caries / SNOMED CT 399372364 / Confirmed PCOS (polycystic ovarian syndrome) / SNOMED CT 649167131 / Confirmed Histories Past Medical History: Active Dental caries (868634160) Family History: No family history items have [...] 115.6 kg (JUN 29:49) BMI 45.04 (JUN 29:49) Constitutional: No acute distress. Well-nourished. Well-developed. Eyes: [...] Patient agrees with plan of care. Normal [facility] Comment on above: Result Comment: Elec tronically Signed By: Bing PEDRAZA, Todd Lilly\.franchesca\Date and Time Signed: 07/06/22 13:28 EDT DHEA SERUMon 07-04-2022 Dehydroepiandrosterone (DHEA) 220 ng/dL Normal 31-701 [facility] Comment on above: Performed By: #### D KAN. ####[facility] [address] [place] [address]Dr. Nito Sanchez DHEA-SULFATEon 06-30-2022 DHEA-Sulfate 106.0 ug/dL Normal 84.8-378.0 [facility] Comment on above: Performed By: #### D DEEPTI ####[facility] [id number] [address]Dr. Nito Sanchez FSHon 06-30-2022 FSH 6.6 mIU/mL Normal [facility] Comment on above: Result Comment: Adul t Female: Follicular phase 3.5 - 12.5 Ovulation phase 4.7 - 21.5 Luteal phase 1.7 - 7.7 Postmenopausal 25.8 - 134.8 Performed By: #### L BCFS #### [facility] [address] [place] [address] Dr. Nito Sanchez LUTEINIZING HORMONE (LH)on 0 06-30-2022 LH 18.9 mIU/mL Normal [facility] Comment on above: Result Comment: Adul t Female: Follicular phase 2.4 - 12.6 Ovulation phase 14.0 - 95.6 Luteal phase 1.0 - 11.4 Postmenopausal 7.7 - 58.5 Performed By: #### L BCLH #### [facility] [address] [place] [address] Dr. Nito Sanchez PROLACTINon 06-30-2022 Prolactin 5.3 ng/mL Normal 4.8-23.3 [facility] Comment on above: Performed By: #### P ROLAC #### [facility] [address] [address] [address] Nito Sanchez CBC AUTO DIFFon 06-29-2022 BASO # 0.1 103/ul Normal 0.0-0.1 [facility] Comment on above: Performed By: #### C BC #### [facility] [address] [address] [address] Nito Sanchez Basophils/100 WBC (Bld) 0.5 % Normal 0.2-2.0 [facility] Comment on above: Performed By: #### C BC #### [facility] [address] [address] [address] Nito Sanchez EO # 0.2 103/ul Normal 0.0-0.7 [facility] Comment on above: Performed By: #### C BC #### [facility] [address] [place] [address] Dr. Nito Sanchez Eosinophils/100 WBC (Bld) 1.6 % Normal 0.9-7.0 [facility] Comment on above: Performed By: #### C BC #### [facility] [address] [place] [address] Dr. Nito Sanchez Erythrocyte distribution width (RBC) [Ratio] 13.6 % Normal 11.0-15.0 [facility] Comment on above: Performed By: #### C BC #### [facility] [address] [place] [address] Dr. Nito Sanchez Hematocrit (Bld) [Volume fraction] 39.7 % Normal 36.0-48.0 [facility] Comment on above: Performed By: #### C BC #### [facility] [address] [place] [address] Dr. Nito Sanchez Hemoglobin (Bld) [Mass/Vol] 13.1 g/dL Normal 12.0-16.0 [facility] Comment on above: Performed By: #### C BC #### [facility] [address] [place] [address] Dr. Nito Sanchez IG # 0.05 10e3/ul Critically high 0.00-0.03 [facility] Comment on above: Performed By: #### C BC #### [facility] [address] [place] [address] Dr. Nito Sanchez IG % 0.5 % Normal 0.0-0.5 [facility] Comment on above: Performed By: #### C BC #### [facility] [address] [place] [address] Dr. Nito Sanchez LYMPH # 2.6 103/ul Normal 1.2-3.8 [facility] Comment on above: Performed By: #### C BC #### [facility] [address] [place] [address] Dr. Nito Sanchez Lymphocytes/100 WBC (Bld) 25.3 % Normal 20.5-60.0 [facility] Comment on above: Performed By: #### C BC #### [facility] [address] [place] [address] Dr. Nito Sanchez MANUAL DIFF REQ NO Normal [facility] Comment on above: Performed By: #### C BC #### [facility] [address] [place] [address] Dr. Nito Sanchez MCH (RBC) [Entitic mass] 27.1 pg Normal 26.7-34.0 [facility] Comment on above: Performed By: #### C BC #### [facility] [address] [place] [address] Dr. Nito Sanchez MCHC (RBC) [Mass/Vol] 33.0 g/dL Normal 29.9-35.2 [facility] Comment on above: Performed By: #### C BC #### [facility] [address] [place] [address] Dr. Nito Sanchez MCV (RBC) [Entitic vol] 82.2 fL Normal 81.0-99.0 [facility] Comment on above: Performed By: #### C BC #### [facility] [address] [place] [address] Dr. Nito Sanchez MONO # 0.5 103/ul Normal 0.3-0.8 [facility] Comment on above: Performed By: #### C BC #### [facility] [address] [place] [address] Dr. Nito Sanchez Monocytes/100 WBC (Bld) 5.0 % Normal 1.7-12.0 [facility] Comment on above: Performed By: #### C BC #### [facility] [address] [place] [address] Dr. Nito Sanchez NEUT # 6.9 103/ul Critically high 1.4-6.5 [facility] Comment on above: Performed By: #### C BC #### [facility] [address] [place] [address] Dr. Nito Sanchez Neutrophils/100 WBC (Bld) 67.1 % Normal 43.0-75.0 [facility] Comment on above: Performed By: #### C BC #### [facility] [address] [place] [address] Dr. Nito Sanchez Platelet mean volume (Bld) [Entitic vol] 10.0 fL Normal 9.5-13.5 [facility] Comment on above: Performed By: #### C BC #### [facility] [address] [address] [address] Nito Sanchez PLT 313 103/ul Normal 150-450 [facility] Comment on above: Performed By: #### C BC #### [facility] [address] [place] [address] Dr. Nito Sanchez RBC 4.83 106/ul Normal 4.20-5.40 [facility] Comment on above: Performed By: #### C BC #### [facility] [address] [place] [address] Dr. Nito Sanchez WBC 10.3 103/ul Normal 4.0-11.0 [facility] Comment on above: Performed By: #### C BC #### [facility] [address] [place] [address] Dr. Nito Sanchez Consent for Treatmenton 06-06 Consent for Treatment [id number] 650#1.00CD:127 Normal [facility] FREE T4on 06-29-2022 Free T4 [Mass/Vol] 1.01 ng/dL Normal 0.76-1.46 [facility] Comment on above: Performed By: #### F T4 #### [facility] [address] [place] [address] Dr. Nito Sanchez GLYCOHEMOGLOBIN A1Con 2022 ADA RECOMMENDATION SEE BELOW Normal [facility] Comment on above: Result Comment: ADA RECOMMENDED LIMIT 4.0 - 6.0 ADA THERAPEUTIC TARGET < 7.0 ACTION SUGGESTED > 7.0 Performed By: #### A 1C #### [facility] [address] [place] [address] Dr. Nito Sanchez Glucose [Mass/Vol] 108 mg/dL Normal [facility] Comment on above: Performed By: #### A 1C #### [facility] [address] [place] [address] Dr. Nito Sanchez HbA1c (Bld) [Mass fraction] 5.4 % Normal 4.5-6.2 [facility] Comment on above: Performed By: #### A 1C #### [facility] [address] [place] [address] Dr. Nito Sanchez HIPAA Forms Officeon 023 HIPAA Forms Office [id number] 602#1.00CD:127 Normal [facility] Legal Correspondence Officeo n 06-29-2022 Legal Correspondence Office [id number] 270#1.00CD:127 Normal [facility] Legal Correspondence Office [id number] 787#1.00CD:127 Normal [facility] Office/Clinic Note-Physician on 06-29-2022 Office/Clinic Note-Physician [id number] 515#1.00CD:127 Normal [facility] Orders Officeon 06-29-2022 Orders Office [id number] 642#1.00CD:127 Normal [facility] PREG QUANT HCGon 06-29-2022 HCG QUANT 1 mIU/mL Normal [facility] Comment on above: Performed By: #### T SH, PREGQNT #### [facility] [address] [place] [address] Dr. Nito Sanchez HCG RANGE SEE BELOW Normal [facility] Comment on above: Result Comment: 5-50 0.2-1 WEEK 50-500 1-2 WEEKS 100-5,000 2-3 WEEKS 500-10,000 3-4 WEEKS 1,000-50,000 4-5 WEEKS 10,000-100,000 5-6 WEEKS 15,000-200,000 6-8 WEEKS 10,000-100,000 2-3 MONTHS Performed By: #### T SH, PREGQNT #### [facility] [address] [address] [address] Nito Sanchez Patient Correspondenceon Patient Correspondence [id number] 946#1.00CD:127 Normal [facility] Patient Correspondence [id number] 137#1.00CD:127 Normal [facility] Patient Correspondence [id number] 273#1.00CD:127 Normal [facility] Patient Correspondence [id number] 879#1.00CD:127 Normal [facility] Patient Correspondence [id number] 956#1.00CD:127 Normal [facility] Patient History Officeon Patient History Office [id number] 983#1.00CD:127 Normal [facility] Patient History Office [id number] 721#1.00CD:127 Normal [facility] Radiology Outside Office [employer] yon 06-29-2022 Radiology Outside Office Copy [id number] 142#1.00CD:127 Normal [facility] TSHon 06-29-2022 TSH 0.848 uIU/mL Normal 0.358-3.740 [facility] Comment on above: Performed By: #### T BERNICE PREGQNT #### [facility] [address] [address] [address] Nito Sanchez US PELVIS AND TRANSVAGon [...] by: BETTYE DANIELS Date: 2022-06-29 15:17 Normal [facility] PAP ACOG PANEL 2: 30 to 65on 06-19-2022 . . Normal [facility] Comment on above: Result Comment: Perf ormed at: WB Performed By: #### 4 [id number] #### [facility] [address] [address] [address] Nito Sanchez Age Gdln ACOG Testing Normal [facility] Comment on above: Performed By: #### 4 [id number] #### [facility] [address] [address] [address] Nito Sanchez DIAGNOSIS: Comment Normal [facility] Comment on above: Result Comment: NEGA TIVE FOR INTRAEPITHELIAL LESION OR MALIGNANCY. Performed at: WB Performed By: #### [id number] #### [facility] [address] [address] [address] Nito Sanchez HPV Aptima Negative Normal Negative [facility] Comment on above: Result Comment: This nucleic acid amplification test detects fourteen high-risk HPV types (16,18,31,33,35,39,45,51,52,56,58,59,66,68) without differentiation. Performed at: =G Performed By: #### 4 [id number] #### [facility] [address] [address] [address] Nito Sanchez HPV Genotype Reflex Comment Normal [facility] Comment on above: Result Comment: Crit eria not met, HPV Genotype not performed. Performed at: WB Performed By: #### 4 [id number] #### [facility] [address] [place] [address] Dr. Nito Sanchez Methodology: Comment Normal [facility] Comment on above: Result Comment: This liquid based ThinPrep(R) pap test was screened with the use of an image guided system. Performed at: WB Performed By: #### 4 [id number] #### [facility] [address] [place] [address] Dr. Nito Sanchez Note: Comment Normal [facility] Comment on above: Result Comment: The Pap smear is a screening test designed to aid in the detection of premalignant and malignant conditions of the uterine cervix. It is not a diagnostic procedure and should not be used as the sole means of detecting cervical cancer. Both false-positive and false-negative reports do occur. . Performed at: WB Performed By: #### 4 [id number] #### [facility] [address] [place] [address] Dr. Nito Sanchez Performed by: Comment Normal [facility] Comment on above: Result Comment: Nanda Treadwell, Proc Tech (ASCP) Performed at: WB Performed By: #### 4 [id number] #### [facility] [address] [place] [address] Dr. Nito Sanchez Specimen adequacy: Comment Normal [facility] Comment on above: Result Comment: Sati sfactory for evaluation. Endocervical and/or squamous metaplastic cells (endocervical component) are present. Performed at: WB Performed By: #### 4 [id number] #### [facility] [address] [place] [address] MAXILLOFACIAL WO CONTRAST on 05-11-2022 Recent extraction of the right mandibular and maxillary second molar teeth with presence of air in the respective tooth sockets. No evidence of edema in the sublingual space or the buccal space Probable periapical abscess involving the right maxillary premolar tooth adjacent to the first molar tooth. [facility] RIS CONSOLIDATED EXAM: CT MAXILLOFACIAL [...] visualized intracranial contents show no acute process. [facility] Phil Romero MD - 05/11/2022 [...] tooth adjacent to the first molar tooth. [employer] Work Phone: Radiology Study observation (narrative) [employer] Work Phone: CT MAXILLOFACIAL WO CONTRAST Ordered By: Phil Mary on 05-11-2022 [employer] Work Phone: Urine Preg (Lab)on 3 Beta HCG ( test) Ql (U) Negative NEGATIVE [facility] [employer] [facility] [employer] HCG, Quantitative, on 03-29-2022 hCG Quant NINF [employer] Comment on above: Non-preg premeno <=5 Postmeno <=8 Male <=3 If HCG results do not concur with clinical observations, additional testing to confirm results is recommended. [facility] COVID-19, Rapidon 07-22-2021 SARS-CoV-2 (COVID-19) RNA KALPESH+probe Ql (Unsp spec) Not detected Not Detected [facility] Comment on above: Rapid NAAT: The [...] management decisions. Fact sheet for Healthcare Providers: https://www.fda.gov/media/957290/download Fact sheet for Patients: https://www.fda.gov/media/069630/download Methodology: Isothermal Nucleic Acid Amplification Specimen Description .NASOPHARYNGEAL SWAB [facility] Strep Screen Group A Throato n 07-22-2021 S. pyogenes Ag Ql (Throat) Negative NEGATIVE [facility] Comment on above: Rapid Strep A negati ve. A negative Rapid Group A Strep Screen result does not rule out the possibility of Group A Streptococci in the specimen. A Group A Strep DNA test is available upon request. Source .THROAT SWAB [facility] MR LUMBAR SPINE WITHOUT CONT [facility] 06-17-2021 MR LUMBAR SPINE WITHOUT CONTRAST [...] foraminal stenosis. 2. No fracture or spondylolisthesis. [employer]/[facility] Workstation ID: [id number] Dictated by: [...] vol] 14.0 % 11.6 - 14.8 % [facility] Hematocrit (Bld) [Volume fraction] 38.6 % 36.0 - 46.0 % [facility] Hemoglobin (Bld) [Mass/Vol] 12.1 g/dL 12.0 - 16.0 g/dL [facility] Interpretation and review of laboratory results Abnormal [facility] MCH (RBC) [Entitic mass] 25.4 pg Low 26. 0 - 34.0 pg [facility] MCHC (RBC) [Mass/Vol] 31.3 g/dL 31.0 - 37.0 g/dL [facility] MCV (RBC) [Entitic vol] 81.1 fL 80.0 - 100.0 fL [facility] Platelet mean volume (Bld) [Entitic vol] 10.0 fL 9.4 - 12.4 fL [facility] Platelets (Bld) [#/Vol] 379 10*3/uL [facility] RBC (Bld) [#/Vol] 4.76 10*6/uL [facility] WBC (Bld) [#/Vol] 9.85 10*3/uL [facility] Comprehensive metabolic 2000 panelon 04-16-2021 Albumin [Mass/Vol] 3.7 g/dL 3.2 - 5.2 g/dL [facility] ALP [Catalytic activity/Vol] 95 U/L 40 - 140 U/L [facility] ALT [Catalytic activity/Vol] 36 U/L 14 - 65 U/L [facility] Anion gap [Moles/Vol] 11 mmol/L 10 - 2 0 mmol/L [facility] AST [Catalytic activity/Vol] 22 U/L 0 - 45 U/L [facility] Bilirubin [Mass/Vol] 0.3 mg/dL 0.0 - 1 .3 mg/dL [facility] Calcium [Mass/Vol] 9.3 mg/dL 8.4 - 10. 2 mg/dL [facility] Chloride [Moles/Vol] 105 mmol/L 98 - 10 8 mmol/L [facility] Creatinine [Mass/Vol] 0.68 mg/dL 0.40 - 1.10 [facility] GFR/1.73 sq M.predicted CKD-EPI (S/P/Bld) [Vol rate/Area] 117 >=60 mL/min/1.73 m2 [facility] Glucose [Mass/Vol] 76 mg/dL 65 - 99 mg/dL [facility] HCO3 [Moles/Vol] 26 mmol/L 21 - 32 mmol/L [facility] Interpretation and review of laboratory results Normal [facility] Potassium [Moles/Vol] 4.2 mmol/L 3.5 - 5.1 mmol/L [facility] Protein [Mass/Vol] 7.5 g/dL 6.0 - 8.0 g/dL [facility] Sodium [Moles/Vol] 138 mmol/L 135 - 145 mmol/L [facility] Urea nitrogen [Mass/Vol] 13 mg/dL 8 - 25 mg/dL [facility] Urea nitrogen/Creatinine [Mass ratio] 19.1 mg/mg [facility] The eGFR should be used for monitoring renal function only and not for medication dosing. [facility] Lipid 1996 panelon 2 Cholesterol [Mass/Vol] 195 mg/dL 100 - 199 mg/dL [facility] Comment on above: National Cholesterol Education Program Guidelines: Cholesterol Desirable: <200 mg/dL Borderline High: 200-239 mg/dL High: greater than or equal to 240 mg/dL Cholesterol in HDL [Mass/Vol] 56 mg/dL 40 - 59 [facility] Comment on above: National Cholesterol Education Program Guidelines: HDL Cholesterol Low: <40 mg/dL Near Optimal: 40-59 mg/dL High: greater than or equal to 60 mg/dL Cholesterol in LDL [Mass/Vol] 109 mg/dL 10 - 130 mg/dL [facility] Comment on above: National Cholesterol Education Program Guidelines: LDL Cholesterol Optimal: <100 mg/dL Near Optimal/above Optimal: 100-129 mg/dL Borderline High: 130-159 mg/dL High: 160-189 mg/dL Very High: greater than or equal to 190 mg/dL Cholesterol non HDL [Mass/Vol] 139 mg/dL [facility] Comment on above: National Cholesterol Education Program Guidelines: NON HDL Cholesterol Desirable: <130 mg/dL Borderline High: 130-159 mg/dL High: 160-189 mg/dL Very High: > or = 190 mg/dL Cholesterol.total/Cholest elton in HDL [Mass ratio] 3.5 {ratio} ratio [facility] Comment on above: Female Cholesterol/H DL Ratio: Average risk: 4.4 1/2 average risk: 3.3 2 x average risk: 7.1 Interpretation and review of laboratory results Abnormal [facility] Triglyceride [Mass/Vol] 151 mg/dL High 30 - 150 mg/dL [facility] Comment on above: National Cholesterol Education Program Guidelines: Triglyceride Normal: <150 mg/dL Borderline High: 150-199 mg/dL High: 200-499 mg/dL Very High: greater than or equal to 500 mg/dL No Panel Informationon 04-16 [facility] TSH DL <= 0.005 mIU/L Qnon 0 04-16-2021 Interpretation and review of laboratory results Normal [facility] TSH Qn 1.04 m[IU]/L [facility] Basic Metabolic Panel w/ Ref ray to MGon 03-23-2021 Anion gap [Moles/Vol] 13 mmol/L 9 - 17 mmol/L [facility] Calcium [Mass/Vol] 8.8 mg/dL 8.6 - 10. 4 mg/dL [facility] Chloride [Moles/Vol] 104 mmol/L 98 - 10 7 mmol/L [facility] CO2 [Moles/Vol] 21 mmol/L 20 - 31 mmol/L [facility] Creatinine [Mass/Vol] 0.65 mg/dL 0.50 - 0.90 mg/dL [facility] [place] GFR >60 >60 mL/min [facility] [employer] [facility] GFR Non- >60 >60 mL/min [facility] GFR/1.73 sq M.predicted MDRD (S/P/Bld) [Vol rate/Area] [facility] Comment on above: Average GFR for 30-3 9 years old: 107 mL/min/1.73sq m Chronic Kidney Disease: <60 mL/min/1.73sq m Kidney failure: <15 mL/min/1.73sq m eGFR calculated using average adult body mass. Additional eGFR calculator available at: http://www.[employer].Ntractive/multiple_crcl_2012.htm GFR/1.73 sq M.predicted MDRD (S/P/Bld) [Vol rate/Area] NOT REPORTED [facility] Glucose [Mass/Vol] 104 mg/dL High 70 - 99 mg/dL [facility] Interpretation and review of laboratory results Abnormal [facility] th Potassium [Moles/Vol] 3.7 mmol/L 3.7 - 5.3 mmol/L [facility] Sodium [Moles/Vol] 138 mmol/L 135 - 144 mmol/L [facility] Urea nitrogen (BldV) [Mass/Vol] 15 mg/dL 6 - 20 mg/dL [facility] Urea nitrogen/Creatinine (Bld) [Mass ratio] [address] [facility] CBC Auto Differentialon 03-07 Absolute Eos # 0.10 [facility] th Absolute Immature Granulocyte NOT REPORTED [facility] Absolute Lymph # 0.60 Low [facility] alth Absolute [place] [facility] Basophils (Bld) [#/Vol] 0.00 10*3/uL [facility] Basophils/100 WBC (Bld) 0 % 0 - 2 % [facility] Differential Type YES [facility] ealth Eosinophils/100 WBC (Bld) 2 % 0 - 5 % [facility] Hematocrit (Bld) [Volume fraction] 34.6 % Low 36 - 46 % [facility] Hemoglobin.gastrointestin al spec 1 Ql (Stl) 11.7 g/dL Low 12.0 - 16.0 g/dL [facility] Immature Granulocytes NOT REPORTED 0 % [facility] Interpretation and review of laboratory results Abnormal [facility] Lymphocytes/100 WBC (Bld) 13 % Low 15 - 40 % [facility] MCH (RBC) [Entitic mass] 26.4 pg 26 - [address] [facility] MCHC (RBC) [Mass/Vol] 33.8 g/dL 31 - 3 7 g/dL [facility] MCV (RBC) [Entitic vol] 78.2 fL Low 80 - [address] [facility] Monocytes/100 WBC (Bld) 10 % High 4 - 8 % [facility] NRBC Automated NOT REPORTED per 100 WBC [facility] Platelet distribution width (Bld) [Ratio] 14.4 % 12.1 - 15.2 % [facility] Platelet Estimate NOT REPORTED [facility] Platelet mean volume (Bld) [Entitic vol] NOT REPORTED 6.0 - 12.[address] [facility] Platelets (Bld) [#/Vol] 259 10*3/uL [facility] RBC (Bld) [#/Vol] 4.43 10*6/uL 4.0 - 5.2 m/uL [facility] RBC (Bld) [#/Vol] NOT REPORTED [facility] Segmented neutrophils/100 WBC (Bld) 75 % 47 - 75 % [facility] Segs Absolute 3.60 [facility] h WBC (Bld) [#/Vol] 4.8 10*3/uL [facility] WBC (Bld) [#/Vol] NOT REPORTED [facility] COVID-19, Rapidon 03-23-2021 Interpretation and review of laboratory results Abnormal [facility] SARS-CoV-2 (COVID-19) RNA KALPESH+probe Ql (Unsp spec) Detected Abnormal Not Detected [facility] Comment on above: Rapid NAAT: The [...] this assay. Fact sheet for Healthcare Providers: https://www.fda.gov/media/864273/download Fact sheet for Patients: https://www.fda.gov/media/762297/download Methodology: Isothermal Nucleic Acid Amplification Results reported to the appropriate Health Department Specimen Description .NASOPHARYNGEAL SWAB [facility] No Panel Informationon 03-[address] [facility] Rapid influenza A/B antigens on 03-23-[address] [facility] Specimen Description .NASOPHARYNGEAL SWAB [facility] COVID-19, RapidOrdered By: Shayy Springer on 12-27-2020 SARS-CoV-2 (COVID-19) RNA KALPESH+probe Ql (Unsp spec) Not detected Not Detected [facility] Work Phone: Comment on above: Rapid [...] management decisions. Fact sheet for Healthcare Providers: https://www.fda.gov/media/071228/download Fact sheet for Patients: https://www.fda.gov/media/524194/download Methodology: Isothermal Nucleic Acid Amplification Specimen Description .NASOPHARYNGEAL SWAB [employer] Phone: [employer] Phone: Strep Screen Group A ThroatO rdered By: Wayne Springer on 12-27-2020 S. pyogenes Ag IA Ql (Unsp spec) Rapid Strep A negative. A negative Rapid Group A Strep Screen result does not rule out the possibility of Group A Streptococci in the specimen. A Group A Strep DNA test is available upon request. [employer] Phone: Special Requests NOT REPORTED [employer] Phone: Specimen Description .THROAT [employer] Phone: [employer] Phone: XR SHOULDER RIGHT (MIN 2 VIE WS)Ordered By: Anuj Quinn on 11-20-2020 No acute fracture or traumatic malalignment. [employer] Phone: EXAMINATION: XR SHOULDER RIGHT (MIN 2 VIEWS), , 11/20/2020 9:30 PM EDT INDICATION: Reason for exam:->shoulder pain HISTORY: Ordering Provider Reason for Exam: Technologist Note: Additional: COMPARISON: None. TECHNIQUE: Right shoulder x-ray: 3 view(s). FINDINGS: No acute fracture. Glenohumeral and acromioclavicular joints are anatomically aligned. Joint spaces are preserved. Soft tissues are unremarkable. [employer] Phone: Ward, pn Incoming Radiant Results From V I O - 11/20/2020 9:55 PM EDT EXAMINATION: XR [...] IMPRESSION: No acute fracture or traumatic malalignment. [facility] Work Phone: [employer] Work Phone: COVID-19, MOLECULARon 2020 SARS-CoV-2 (COVID-19) RNA KALPESH+probe Ql (Unsp spec) Not detected Normal Not Detected [facility] Comment on above: Order Comment: : [...] at the following links: For Healthcare Providers: https://www.fda.gov/media/041150/download For Patients: https://www.fda.gov/media/372816/download Performed By: #### L [id number] #### [facility] [address] [place] [address] Joe Rider M.D. [id number] HbA1c (Bld) [Mass fraction]O rdered By: Zelda Bautista on 07-09-2020 Interpretation and review of laboratory results Normal [facility] POC Hemoglobin [id number] By : Zelda Bautista on 07-09-2020 HbA1c (Bld) [Mass fraction] 5.2 % 4.0 - 6.0 % [facility] HbA1c (Bld) [Mass fraction]O rdered By: Lelo Gallegos on 06-09-2020 Interpretation and review of laboratory results Normal [facility] POC Hemoglobin [id number] By : Lelo Gallegos on 06-09-2020 HbA1c (Bld) [Mass fraction] 5.6 % 4.0 - 6.0 % [facility] CBC Auto Differentialon 03-08 Basophils (Bld) [#/Vol] 0.00 10*3/uL [place] Basophils/100 WBC (Bld) 0 % 0 - 2 % [place] Differential Type YES [place] Eosinophils (Bld) [#/Vol] 0.10 10*3/uL [place] Eosinophils/100 WBC (Bld) 1 % 0 - 5 % [place] Erythrocyte distribution width (RBC) [Ratio] 14.2 % 12.1 - 15.2 % [place] Hematocrit (Bld) [Volume fraction] 36.1 % 36 - 46 % [place] Hemoglobin (Bld) [Mass/Vol] 12.5 g/dL 12 - 16 g/dL [place] Interpretation and review of laboratory results Abnormal [place] Lymphocytes (Bld) [#/Vol] 2.00 10*3/uL [place] Lymphocytes/100 WBC (Bld) 14 % Low 15 - 40 % [place] MCH (RBC) [Entitic mass] 30.6 pg 26 - 34 pg [place] MCHC (RBC) [Mass/Vol] 34.5 g/dL 31 - 3 7 g/dL [place] MCV (RBC) [Entitic vol] 88.5 fL 80 - 100 fL [place] Monocytes (Bld) [#/Vol] 0.80 10*3/uL [place] Monocytes/100 WBC (Bld) 6 % 4 - 8 % [place] Platelet mean volume (Bld) [Entitic vol] NOT REPORTED 6 - 12 fL [place] Platelets (Bld) [#/Vol] 300 10*3/uL [place] Platelets (Bld) [#/Vol] NOT REPORTED [place] RBC (Bld) [#/Vol] 4.08 10*6/uL 4 - 5.2 m/uL [place] RBC morphology finding Nom (Bld) NOT REPORTED [place] Segmented neutrophils/100 WBC (Bld) 79 % High 47 - 75 % [place] Segs Absolute 10.70 High [place] WBC (Bld) [#/Vol] 13.6 10*3/uL [place] WBC (Bld) [#/Vol] NOT REPORTED per 100 WBC [place] WBC Morphology NOT REPORTED [place] COVID-19, PCRon 03-26-2020 SARS-CoV-2, Rapid Not Detected Not Detected [place] Comment on above: Rapid NAAT: The [...] management decisions. Fact sheet for Healthcare Providers: https://www.fda.gov/media/621118/download Fact sheet for Patients: https://www.fda.gov/media/879055/download Methodology: Isothermal Nucleic Acid Amplification Source .THROAT [place] Comprehensive Metabolic Pane l w/ Reflex to MGon 03-26-2020 Albumin [Mass/Vol] 3.3 g/dL Low 3.5 - 5.2 g/dL [place] Albumin/Globulin [Mass ratio] NOT REPORTED [place] ALP [Catalytic activity/Vol] 57 U/L 35 - 104 U/L [place] ALT [Catalytic activity/Vol] U/L Low 5 - 33 U/L [place] Anion gap [Moles/Vol] 11 mmol/L 9 - 17 mmol/L [place] AST [Catalytic activity/Vol] 9 U/L <32 [place] Bilirubin Ql (U) 0.10 mg/dL Low 0.3 - 1.2 mg/dL [place] Bun/Cre Ratio 21 High [place] Calcium [Mass/Vol] 10.2 mg/dL 8.6 - 10. 4 mg/dL [place] Chloride [Moles/Vol] 104 mmol/L 98 - 10 7 mmol/L [place] CO2 [Moles/Vol] 21 mmol/L 20 - 31 mmol/L [place] Creatinine [Mass/Vol] 0.42 mg/dL Low 0.5 - 0.9 mg/dL [place] GFR >60 >60 mL/min [place] GFR Non- >60 >60 mL/min [place] GFR/1.73 sq M predicted among non-blacks MDRD (S/P/Bld) [Vol rate/Area] NOT REPORTED [place] GFR/1.73 sq M predicted among non-blacks MDRD (S/P/Bld) [Vol rate/Area] [place] Comment on above: Average GFR for 30-3 9 years old: 107 mL/min/1.73sq m Chronic Kidney Disease: <60 mL/min/1.73sq m Kidney failure: <15 mL/min/1.73sq m eGFR calculated using average adult body mass. Additional eGFR calculator available at: http://www.[employer].Ntractive/multiple_crcl_2012.htm Glucose [Mass/Vol] 100 mg/dL High 70 - 99 mg/dL [place] Interpretation and review of laboratory results Abnormal [place] Potassium [Moles/Vol] 3.8 mmol/L 3.7 - 5.3 mmol/L [place] Protein [Mass/Vol] 6.5 g/dL 6.4 - 8.3 g/dL [place] Sodium [Moles/Vol] 136 mmol/L 135 - 144 mmol/L [place] Urea nitrogen [Mass/Vol] 9 mg/dL 6 - 20 mg/dL [place] Otheron 03-26-2020 SARS-CoV-2 [place] Immature granulocytes (Bld) [#/Vol] NOT REPORTED [place] Urinalysis, reflex to micros copicon 03-26-2020 Bilirubin Urine Negative NEGATIVE [facility] [place] Color, UA YELLOW YELLOW [place] Glucose, Ur Negative NEGATIVE [place] Ketones Ql (U) Negative NEGATIVE [place] Leukocyte esterase Test strip Ql (U) Negative NEGATIVE [place] Nitrite, Urine Negative NEGATIVE [place] pH, UA 7.0 [place] Protein (U) [Mass/Vol] Negative NEGATIVE [place] Specific [place], UA 1.010 [place] Turbidity UA CLEAR CLEAR [place] Urinalysis Comments [place] Urine Hgb Negative NEGATIVE [place] Urobilinogen, Urine Normal Normal [place] Wet Prep, Genitalon 11-20-19 Direct Exam MODERATE EPITHELIAL CELLS Abnormal [place] Direct Exam FEW TRICHOMONAS SEEN Abnormal [place] Direct Exam MODERATE BACTERIA Abnormal [place] Direct Exam Few epithelials coated with bacteria resembling clue cells. Abnormal [place] Direct Exam NO FUNGAL ELEMENTS SEEN [place] Interpretation and review of laboratory results Abnormal [place] Special Requests NOT REPORTED [place] Specimen Description .VAGINAL SPECIMEN [place] WBC (Bld) [#/Vol] FEW WBC SEEN Abnormal [place] Basic Metabolic Panelon 06-05 Anion gap [Moles/Vol] 15 mmol/L 10 - 2 0 mmol/L [facility] Calcium [Mass/Vol] 8.6 mg/dL 8.4 - 10. 2 mg/dL [facility] Chloride [Moles/Vol] 102 mmol/L 98 - 10 8 mmol/L [facility] Creatinine [Mass/Vol] 0.36 mg/dL Low 0.40 - 1.10 [facility] GFR/1.73 sq M predicted among non-blacks MDRD (S/P/Bld) [Vol rate/Area] The eGFR should be used for monitoring renal function only and not for medication dosing. [facility] GFR/1.73 sq M.predicted CKD-EPI (S/P/Bld) [Vol rate/Area] 146 >=60 mL/min/1.73 m2 [facility] Glucose [Mass/Vol] 102 mg/dL High 65 - 99 mg/dL [facility] HCO3 [Moles/Vol] 25 mmol/L 21 - 32 mmol/L [facility] Interpretation and review of laboratory results Abnormal [facility] Potassium [Moles/Vol] 4.1 mmol/L 3.5 - 5.1 mmol/L [facility] Sodium [Moles/Vol] 138 mmol/L 135 - 145 mmol/L [facility] Urea nitrogen [Mass/Vol] 5 mg/dL Low 8 - 25 mg/dL [facility] Urea nitrogen/Creatinine [Mass ratio] 13.9 mg/mg [facility] Hepatic Function Panelon Albumin [Mass/Vol] 3.3 g/dL 3.2 - 5.2 g/dL [facility] ALP [Catalytic activity/Vol] 253 U/L High 40 - 140 U/L [facility] ALT [Catalytic activity/Vol] 686 U/L High 0 - 40 U/L [facility] AST [Catalytic activity/Vol] 349 U/L High 0 - 45 U/L [facility] Bilirubin [Mass/Vol] 6.0 mg/dL High 0 - 1.3 mg/dL [facility] Bilirubin.conjugated [Mass/Vol] 5.1 mg/dL High 0 - 0.4 mg/dL [facility] Interpretation and review of laboratory results Abnormal [facility] Protein [Mass/Vol] 6.8 g/dL 6 - 8 g/dL [facility] Bilirubin, Directon 06-16-19 20 Bilirubin.conjugated [Mass/Vol] 5.4 mg/dL High 0 - 0.4 mg/dL [facility] Interpretation and review of laboratory results Abnormal [facility] CBCon 06-16-2019 Erythrocyte distribution width (RBC) [Entitic vol] 15.1 % High 11.6 - 14.8 % [facility] Hematocrit (Bld) [Volume fraction] 38.5 % 36 - 46 % [facility] Hemoglobin (Bld) [Mass/Vol] 12.9 g/dL 12 - 16 g/dL [facility] Interpretation and review of laboratory results Abnormal [facility] MCH (RBC) [Entitic mass] 29.1 pg 26 - 34 pg [facility] MCHC (RBC) [Mass/Vol] 33.5 g/dL 31 - 3 7 g/dL [facility] MCV (RBC) [Entitic vol] 86.9 fL 80 - 100 fL [facility] Nucleated RBC (Bld) [#/Vol] 0.00 10*3/uL [facility] Nucleated RBC/100 WBC (Bld) [Ratio] 0.0 % [facility] Platelet mean volume (Bld) [Entitic vol] 11.3 fL 9 - 15.5 fL [facility] Platelets (Bld) [#/Vol] 185 10*3/uL [facility] RBC (Bld) [#/Vol] 4.43 10*6/uL [facility] WBC (Bld) [#/Vol] 6.48 10*3/uL [facility] Comprehensive Metabolic Pane cayden 06-16-2019 Albumin [Mass/Vol] 3.3 g/dL 3.2 - 5.2 g/dL [facility] ALP [Catalytic activity/Vol] 217 U/L High 40 - 140 U/L [facility] ALT [Catalytic activity/Vol] 825 U/L High 0 - 40 U/L [facility] Anion gap [Moles/Vol] 14 mmol/L 10 - 2 0 mmol/L [facility] AST [Catalytic activity/Vol] 544 U/L High 0 - 45 U/L [facility] Bilirubin [Mass/Vol] 5.9 mg/dL High 0 - 1.3 mg/dL [facility] Calcium [Mass/Vol] 8.4 mg/dL 8.4 - 10. 2 mg/dL [facility] Chloride [Moles/Vol] 103 mmol/L 98 - 10 8 mmol/L [facility] Creatinine [Mass/Vol] 0.32 mg/dL Low 0.40 - 1.10 [facility] GFR/1.73 sq M predicted among non-blacks MDRD (S/P/Bld) [Vol rate/Area] The eGFR should be used for monitoring renal function only and not for medication dosing. [facility] GFR/1.73 sq M.predicted CKD-EPI (S/P/Bld) [Vol rate/Area] 152 >=60 mL/min/1.73 m2 [facility] Glucose [Mass/Vol] 92 mg/dL 65 - 99 mg/dL [facility] HCO3 [Moles/Vol] 26 mmol/L 21 - 32 mmol/L [facility] Interpretation and review of laboratory results Abnormal [facility] Potassium [Moles/Vol] 4.3 mmol/L 3.5 - 5.1 mmol/L [facility] Protein [Mass/Vol] 6.2 g/dL 6 - 8 g/dL [facility] Sodium [Moles/Vol] 139 mmol/L 135 - 145 mmol/L [facility] Urea nitrogen [Mass/Vol] 4 mg/dL Low 8 - 25 mg/dL [facility] Urea nitrogen/Creatinine [Mass ratio] 12.5 mg/mg [facility] Bilirubin, Directon 06-15-19 20 Bilirubin.conjugated [Mass/Vol] 4.7 mg/dL High 0 - 0.4 mg/dL [facility] Interpretation and review of laboratory results Abnormal [facility] CBCon 06-15-2019 Erythrocyte distribution width (RBC) [Entitic vol] 14.8 % 11.6 - 14.8 % [facility] Hematocrit (Bld) [Volume fraction] 38.5 % 36 - 46 % [facility] Hemoglobin (Bld) [Mass/Vol] 12.6 g/dL 12 - 16 g/dL [facility] MCH (RBC) [Entitic mass] 29.0 pg 26 - 34 pg [facility] MCHC (RBC) [Mass/Vol] 32.7 g/dL 31 - 3 7 g/dL [facility] MCV (RBC) [Entitic vol] 88.5 fL 80 - 100 fL [facility] Nucleated RBC (Bld) [#/Vol] 0.00 10*3/uL [facility] Nucleated RBC/100 WBC (Bld) [Ratio] 0.0 % [facility] Platelet mean volume (Bld) [Entitic vol] 11.0 fL 9 - 15.5 fL [facility] Platelets (Bld) [#/Vol] 155 10*3/uL [facility] RBC (Bld) [#/Vol] 4.35 10*6/uL [facility] WBC (Bld) [#/Vol] 5.74 10*3/uL [facility] Comprehensive Metabolic Pane acyden 06-15-2019 Albumin [Mass/Vol] 3.2 g/dL 3.2 - 5.2 g/dL [facility] ALP [Catalytic activity/Vol] 193 U/L High 40 - 140 U/L [facility] ALT [Catalytic activity/Vol] 888 U/L High 0 - 40 U/L [facility] Anion gap [Moles/Vol] 15 mmol/L 10 - 2 0 mmol/L [facility] AST [Catalytic activity/Vol] 667 U/L High 0 - 45 U/L [facility] Bilirubin [Mass/Vol] 5.2 mg/dL High 0 - 1.3 mg/dL [facility] Calcium [Mass/Vol] 8.2 mg/dL Low 8.4 - 10. 2 mg/dL [facility] Chloride [Moles/Vol] 103 mmol/L 98 - 10 8 mmol/L [facility] Creatinine [Mass/Vol] 0.36 mg/dL Low 0.40 - 1.10 [facility] GFR/1.73 sq M predicted among non-blacks MDRD (S/P/Bld) [Vol rate/Area] The eGFR should be used for monitoring renal function only and not for medication dosing. [facility] GFR/1.73 sq M.predicted CKD-EPI (S/P/Bld) [Vol rate/Area] 146 >=60 mL/min/1.73 m2 [facility] Glucose [Mass/Vol] 122 mg/dL High 65 - 99 mg/dL [facility] HCO3 [Moles/Vol] 22 mmol/L 21 - 32 mmol/L [facility] Interpretation and review of laboratory results Abnormal [facility] Potassium [Moles/Vol] 3.8 mmol/L 3.5 - 5.1 mmol/L [facility] Protein [Mass/Vol] 5.8 g/dL Low 6 - 8 g/dL [facility] Sodium [Moles/Vol] 136 mmol/L 135 - 145 mmol/L [facility] Urea nitrogen [Mass/Vol] 5 mg/dL Low 8 - 25 mg/dL [facility] Urea nitrogen/Creatinine [Mass ratio] 13.9 mg/mg [facility] NM HEPATOBILIARY WO EJECTION FRACTIONon [...] tree, and small bowel are not visualized. [facility] Opacified liver with no visualization [...] absence of cholecystitis. YESENIA/elda Workstation ID: [id number] [facility] Interface, Rad In [employer] Speechq - 06/15/2019 3:10 PM EDT EXAMINATION: [...] absence of cholecystitis. YESENIA/elda Workstation ID: [id number] [facility] APTTon 06-14-2019 aPTT Coag (Bld) [Time] 31.1 s [facility] [place], [place] Comment on above: PTT Therapeutic Range: 61.7-88.4 Therapeutic range corresponds to plasma heparin levels of 0.3-0.7 U/mL. Acetaminophen Levelon 2019 Acetaminophen [Mass/Vol] 9.1 [facility] Interpretation and review of laboratory results Normal [facility] Bilirubin, Directon 06-14-19 20 Bilirubin.conjugated [Mass/Vol] 4.3 mg/dL High 0 - 0.4 mg/dL [facility] Interpretation and review of laboratory results Abnormal [facility] CBC WITH AUTO DIFFERENTIALon 06-14-2019 Erythrocyte distribution width (RBC) [Entitic vol] 14.5 % 11.6 - 14.8 % [facility] Hematocrit (Bld) [Volume fraction] 34.6 % Low 36 - 46 % [facility] Hemoglobin (Bld) [Mass/Vol] 11.6 g/dL Low 12 - 16 g/dL [facility] Interpretation and review of laboratory results Abnormal [facility] MCH (RBC) [Entitic mass] 29.7 pg 26 - 34 pg [facility] MCHC (RBC) [Mass/Vol] 33.5 g/dL 31 - 3 7 g/dL [facility] MCV (RBC) [Entitic vol] 88.5 fL 80 - 100 fL [facility] Nucleated RBC (Bld) [#/Vol] 0.00 10*3/uL [facility] Nucleated RBC/100 WBC (Bld) [Ratio] 0.0 % [facility] Platelet mean volume (Bld) [Entitic vol] 10.8 fL 9 - 15.5 fL [facility] Platelets (Bld) [#/Vol] 172 10*3/uL [facility] RBC (Bld) [#/Vol] 3.91 10*6/uL Low [facility] WBC (Bld) [#/Vol] 7.28 10*3/uL [facility] e[facility] CT ABDOMEN PELVIS W IV CONTR AST Additional Contrast? Noneon 06-14-2019 [place], [facility] Incoming Radiant Results From [employer] - 06/14/2019 12:27 AM EDT EXAMINATION: CT [...] liver function panel and consider ultrasound imaging. [place] Pericholecystic fluid versus gallbladder wall thickening and additional periportal edema. There are no visualized stones in the gallbladder gallbladder and/or hepatic pathology are suspected. Correlate with liver function panel and consider ultrasound imaging. [place] EXAMINATION: CT ABDOMEN PELVIS W IV [...] structures demonstrate no acute or concerning abnormality. [facility], [place] CT COMPARISON IMPORTon 06-13 This order has been auto-finalized and does not contain a result. [facility] Comprehensive Metabolic Pane cayden 06-14-2019 Albumin [Mass/Vol] 3.0 g/dL Low 3.2 - 5.2 g/dL [facility] ALP [Catalytic activity/Vol] 183 U/L High 40 - 140 U/L [facility] ALT [Catalytic activity/Vol] 808 U/L High 0 - 40 U/L [facility] Anion gap [Moles/Vol] 16 mmol/L 10 - 2 0 mmol/L [facility] AST [Catalytic activity/Vol] 592 U/L High 0 - 45 U/L [facility] Bilirubin [Mass/Vol] 4.9 mg/dL High 0 - 1.3 mg/dL [facility] Calcium [Mass/Vol] 8.4 mg/dL 8.4 - 10. 2 mg/dL [facility] Chloride [Moles/Vol] 104 mmol/L 98 - 10 8 mmol/L [facility] Creatinine [Mass/Vol] 0.43 mg/dL 0.40 - 1.10 [facility] GFR/1.73 sq M predicted among non-blacks MDRD (S/P/Bld) [Vol rate/Area] The eGFR should be used for monitoring renal function only and not for medication dosing. [facility] GFR/1.73 sq M.predicted CKD-EPI (S/P/Bld) [Vol rate/Area] 138 >=60 mL/min/1.73 m2 [facility] Glucose [Mass/Vol] 79 mg/dL 65 - 99 mg/dL [facility] HCO3 [Moles/Vol] 21 mmol/L 21 - 32 mmol/L [facility] Interpretation and review of laboratory results Abnormal [facility] Potassium [Moles/Vol] 3.8 mmol/L 3.5 - 5.1 mmol/L [facility] Protein [Mass/Vol] 5.7 g/dL Low 6 - 8 g/dL [facility] alth Sodium [Moles/Vol] 137 mmol/L 135 - 145 mmol/L [facility] Urea nitrogen [Mass/Vol] 9 mg/dL 8 - 25 mg/dL [facility] Urea nitrogen/Creatinine [Mass ratio] 20.9 mg/mg High [facility] DRUGS OF ABUSE SCREEN, URINE on 06-14-2019 Amphetamines Ql (U) None Detected None Detected [facility] Comment on above: Urine Amphetamine Cu toff: < 1000 ng/mL = None Detected Barbiturates Screen Ql (U) None Detected None Detected [facility] Comment on above: Urine Barbiturates C utoff: < 200 ng/mL = None Detected Benzodiazepines Ql (U) None Detected None Detected [facility] Comment on above: Urine Benzodiazepine Cutoff: < 300 ng/mL = None Detected Cannabinoids Screen Ql (U) None Detected None Detected [facility] Comment on above: Urine Cannabinoids C utoff: < 50 ng/mL = None Detected Cocaine Ql (U) Positive Abnormal None Detected [facility] Comment on above: Urine Cocaine Cutoff : < 300 ng/mL = None Detected Interpretation and review of laboratory results Abnormal [facility] Methadone Screen Ql (U) None Detected Non e Detected [facility] Comment on above: Urine Methadone Cuto ff: < 300 ng/mL = None Detected Opiates Screen Ql (U) None Detected None Detected [facility] Comment on above: Urine Opiates Cutoff : < 300 ng/mL = None Detected Oxycodone Ql (U) None Detected None Detected [facility] Comment on above: Urine Oxycodone Cuto ff: < 100 ng/mL = None Detected Screen results should be used for treatment purposes only. Specimen will be kept for 2 weeks, if the sample is adequate. Confirmation testing can be initiated by calling the lab within 2 weeks. [facility] HEPATITIS PANEL, ACUTEon HAV IgM Ql (S) Negative Negative [facility] HBV core IgM Ql (S) Negative Negative [facility] HBV surface Ag Ql (S) Negative Negative [facility] HCV Ab Ql (S) Positive Abnormal Negative [facility] Comment on above: A positive antibody test requires additional follow-up testing, Hepatitis C Virus Quantitation, to determine if a person is currently infected with Hepatitis C. Interpretation and review of laboratory results Abnormal [facility] Test performed using Constantin DEVIKA immunoassay system [facility] Lactic Acid, Plasmaon 2019 Interpretation and review of laboratory results Normal [facility] Lactate [Moles/Vol] 0.8 mmol/L 0.6 - 2 mmol/L [facility] MORPHOLOGYon 06-14-2019 Platelets LM Ql (Bld) Normal Normal [facility] RBC morphology finding Nom (Bld) Normal [facility] MR MRCPon 06-14-2019 EXAMINATION: MR [...] Axial T1-weighted images were obtained in- and [id number]. Axial diffusion-weighted imaging was also performed. FINDINGS: The liver overall appears enlarged with the right hepatic lobe measuring 22.6 cm ilqzzokh-vj-wanromu r. The spleen measures 14.6 cm emmgekfr-ne-yevefvz r and is also mildly enlarged. There [...] the right kidney. Bowel pattern is nonobstructive. [facility] 1. Re-demonstration of diffuse periportal edema as well as significant circumferential gallbladder wall edema similar to that seen on prior CT study. 2. Mild hepatosplenomegaly. 3. No obvious gallstones. Negative for biliary or pancreatic ductal dilatation. Negative for choledocholithiasis . 4. Trace volume of abdominal ascites. [employer] Workstation ID: [id number] [facility] Interface, Rad In Asif Parhamq [...] Axial T1-weighted images were obtained in- and [id number]. Axial diffusion-weighted imaging was also performed. FINDINGS: The liver overall appears enlarged with the right hepatic lobe measuring 22.6 cm mtpvzift-iw-btbfjme r. The spleen measures 14.6 cm cjksnwpd-ms-yxklwey r and is also mildly enlarged. There [...] . 4. Trace volume of abdominal ascites. [employer] Workstation ID: [id number] [facility] Manual Differentialon 2019 Basophils (Bld) [#/Vol] 0.00 10*3/uL [facility] Basophils/100 WBC (Bld) 0.0 % [facility] Eosinophils (Bld) [#/Vol] 0.00 10*3/uL [facility] Eosinophils/100 WBC (Bld) 0.0 % [facility] Lymphocytes (Bld) [#/Vol] 3.28 10*3/uL [facility] Lymphocytes/100 WBC (Bld) 37.0 % [facility] Monocytes (Bld) [#/Vol] 0.44 10*3/uL [facility] Monocytes/100 WBC (Bld) 6.0 % [facility] Neutrophils (Bld) [#/Vol] 3.57 10*3/uL [facility] Neutrophils/100 WBC (Bld) 49.0 % [facility] Variant lymphocytes/100 WBC (Bld) 8.0 % [facility] PT/INRon 06-14-2019 INR Coag (PPP) [Relative time] 1.3 {INR} [facility] Interpretation and review of laboratory results Abnormal [facility] PT Coag (PPP) [Time] 15.5 s [facility] During the induction phase of oral anticoagulation, the INR may not reflect the anticoagulation status of the patient. Therapeutic ranges for INR's are: Most clinical situations: INR 2.0-3.0 Mechanical Prosthetic Valve: INR 2.5-3.5 Critical: INR >5.0 [facility] Protime-INRon 06-14-2019 INR Coag (PPP) [Relative time] 1.2 {INR} [facility] [place] Comment on above: * THERAPY INDICATIONS * REFERENCE RANGES Pts not on anti-coagulants 1.0 - 1.5 INR Low risk pts on anti-coagulants 2.0 - 3.0 INR High risk pts on anti-coagulants 2.5 - 3.5 INR Prevention of atrial thrombo-embolism 3.0 - 4.5 INR Interpretation and review of laboratory results Abnormal [facility] [place], [place] PT Coag (PPP) [Time] 11.7 s High [facility] [place], [place] Salicylate Levelon 0 Interpretation and review of laboratory results Abnormal [facility] Salicylates [Mass/Vol] mg/dL Low 10 - 20 mg/dL [facility] URINALYSISon 06-14-2019 Bacteria Auto Ql (U) Rare Abnormal None Se en /hpf [facility] Bilirubin Ql (U) Positive Abnormal Negative [facility] Comment on above: False positive urine bilirubins can occur in the setting of a large amount of hemoglobin and secondary to medications including anti-inflammatory agents, rifampin, and pyridium. Clarity Refractometry automated (U) Clear Clear [facility] Color (U) Erica Abnormal Colorless, Yellow [facility] Epithelial cells.squamous Auto (Urine sed) [#/Area] 4 [facility] alth Glucose Auto test strip (U) [Mass/Vol] Negative Negative mg/dL [facility] Hemoglobin Auto test strip Ql (U) Negative Negative [facility] Interpretation and review of laboratory results Abnormal [facility] Ketones (U) [Mass/Vol] >=80 Abnormal Negat krystal mg/dL [facility] Leukocyte esterase Auto test strip Ql (U) Negative Negative [facility] Mucus Auto (Urine sed) [#/Area] Rare None Seen, Rare /lpf [facility] Nitrite Auto test strip Ql (U) Negative Negative [facility] pH (U) 6.0 [pH] [facility] Protein (U) [Mass/Vol] 30 Abnormal Negat krystal mg/dL [facility] Comment on above: False positive resul ts may occur in urines with large amounts of hemoglobin, pH greater than 8.0, contrast medium, or disinfectants including ammonium compounds. RBC Auto (Urine sed) [#/Area] 2 [facility] Specific gravity (U) [Rel density] 1.028 High [facility] Urobilinogen (U) [Mass/Vol] >=4.0 Abnormal <2.0 mg/dL [facility] WBC Auto (Urine sed) [#/Area] 2 [facility] Microscopic examination is performed on all urinalysis samples and only positive findings are reported. The test for blood on the chemical analytic portion of urinalysis may also be positive due to hemoglobinuria and myoglobinuria and if red blood cells are present they are quantified by microscopic examination. [facility] US ABDOMEN LIMITED STUDYon 0 06-14-2019 Interface, Rad In Asif Parhamq - 06/14/2019 9:43 AM EDT EXAMINATION: US [...] liver likely small hemangioma. Workstation ID: [id number] [facility] EXAMINATION: US ABDOMEN LIMITED STUDY [...] measures 10.7 cm in length. No hydronephrosis. [facility] 1. Contracted gallbladder limits evaluation. No cholelithiasis identified. Nonspecific edematous gallbladder wall thickening and reported positive sonographic Short's sign, cannot exclude acalculus cholecystitis. No biliary ductal dilatation. 2. 1.3 cm echogenic lesion left lobe of the liver likely small hemangioma. Workstation ID: [id number] [facility] Amylaseon 06-13-2019 Amylase [Catalytic activity/Vol] 22 U/L Low 28 - 100 U/L [place] CBC Auto Differentialon Basophils (Bld) [#/Vol] 0.00 10*3/uL [place] Basophils/100 WBC (Bld) 1 % 0 - 2 % [place] Differential Type YES [place] Eosinophils (Bld) [#/Vol] 0.00 10*3/uL [place] Eosinophils/100 WBC (Bld) 0 % 0 - 5 % [place] Erythrocyte distribution width (RBC) [Ratio] 14.9 % 12.1 - 15.2 % [place] Hematocrit (Bld) [Volume fraction] 43.3 % 36 - 46 % [place] Hemoglobin (Bld) [Mass/Vol] 14.3 g/dL 12 - 16 g/dL [place] Lymphocytes (Bld) [#/Vol] 2.50 10*3/uL [place] Lymphocytes/100 WBC (Bld) 30 % 15 - 40 % [place] MCH (RBC) [Entitic mass] 28.8 pg 26 - 34 pg [place] MCHC (RBC) [Mass/Vol] 33.1 g/dL 31 - 3 7 g/dL [place] MCV (RBC) [Entitic vol] 87.2 fL 80 - 100 fL [place] Monocytes (Bld) [#/Vol] 0.70 10*3/uL [place] Monocytes/100 WBC (Bld) 8 % 4 - 8 % [place] Platelet mean volume (Bld) [Entitic vol] NOT REPORTED 6 - 12 fL [place] Platelets (Bld) [#/Vol] 203 10*3/uL [place] Platelets (Bld) [#/Vol] NOT REPORTED [place] RBC (Bld) [#/Vol] 4.97 10*6/uL 4 - 5.2 m/uL [place] RBC morphology finding Nom (Bld) NOT REPORTED [place] Segmented neutrophils/100 WBC (Bld) 61 % 47 - 75 % [place] Segs Absolute 5.20 [place] WBC (Bld) [#/Vol] 8.4 10*3/uL [place] WBC (Bld) [#/Vol] NOT REPORTED per 100 WBC [place] WBC Morphology NOT REPORTED [place] Comprehensive Metabolic Pane l w/ Reflex to MGon 06-13-2019 Albumin [Mass/Vol] 4.1 g/dL 3.5 - 5.2 g/dL [place] Albumin/Globulin [Mass ratio] NOT REPORTED [place] ALP [Catalytic activity/Vol] 255 U/L High 35 - 104 U/L [place] ALT [Catalytic activity/Vol] 1116 U/L High 5 - 33 U/L [place] Anion gap [Moles/Vol] 17 mmol/L 9 - 17 mmol/L [place] AST [Catalytic activity/Vol] 665 U/L High <32 [place] Bilirubin Ql (U) 6.52 mg/dL High 0.3 - 1.2 mg/dL [place] Bun/Cre Ratio 17 [place] Calcium [Mass/Vol] 10.1 mg/dL 8.6 - 10. 4 mg/dL [place] Chloride [Moles/Vol] 95 mmol/L Low 98 - 10 7 mmol/L [place] CO2 [Moles/Vol] 24 mmol/L 20 - 31 mmol/L [place] Creatinine [Mass/Vol] 0.82 mg/dL 0.5 - 0.9 mg/dL [place] GFR >60 >60 mL/min [place] GFR Non- >60 >60 mL/min [place] GFR/1.73 sq M predicted among non-blacks MDRD (S/P/Bld) [Vol rate/Area] [place] Comment on above: Average GFR for 20-2 9 years old: 116 mL/min/1.73sq m Chronic Kidney Disease: <60 mL/min/1.73sq m Kidney failure: <15 mL/min/1.73sq m eGFR calculated using average adult body mass. Additional eGFR calculator available at: http://www.[employer]/multiple_crcl_2012.htm GFR/1.73 sq M predicted among non-blacks MDRD (S/P/Bld) [Vol rate/Area] NOT REPORTED [place] Glucose [Mass/Vol] 134 mg/dL High 70 - 99 mg/dL [place] Interpretation and review of laboratory results Abnormal [place] Potassium [Moles/Vol] 3.7 mmol/L 3.7 - 5.3 mmol/L [place] Protein [Mass/Vol] 8.1 g/dL 6.4 - 8.3 g/dL [place] Sodium [Moles/Vol] 136 mmol/L 135 - 144 mmol/L [place] Urea nitrogen [Mass/Vol] 14 mg/dL 6 - 20 mg/dL [place] Drug screen multi urineon Amphetamine Screen, Ur Negative NEGATIVE [place] Comment on above: (Positive cutoff 500 ng/mL) Barbiturate Screen, Ur Negative NEGATIVE [place] Comment on above: (Positive cutoff 200 ng/mL) Benzodiazepine Screen, Urine Negative NEGATIVE [place] Comment on above: (Positive cutoff 150 ng/mL) Buprenorphine Urine NOT REPORTED NEGATIVE [place] Cannabinoid Scrn, Ur Negative NEGATIVE [place] Comment on above: (Positive cutoff 50 ng/mL) Cocaine Metabolite, Urine Positive Abnormal NEGATIVE [place] Comment on above: (Positive cutoff 150 ng/mL) Interpretation and review of laboratory results Abnormal [place] MDMA, Urine NOT REPORTED NEGATIVE [place] Methadone Screen, Urine Negative NEGATIVE [place] Comment on above: (Positive cutoff 200 ng/mL) Methamphetamine, Urine Negative NEGATIVE [place] Comment on above: (Positive cutoff 500 ng/mL) Opiates, Urine Positive Abnormal NEGATIVE [place] Comment on above: (Positive cutoff 100 ng/mL) Oxycodone Screen, Ur Negative NEGATIVE [place] Comment on above: (Positive cutoff 100 ng/mL) Phencyclidine, Urine Negative NEGATIVE [place] Comment on above: (Positive cutoff 25 ng/mL) Propoxyphene, Urine Negative NEGATIVE [place] Comment on above: (Positive cutoff 300 ng/mL) Test Information NOT REPORTED [place] Tricyclic Antidepressants, Urine Negative NEGATIVE [place] Comment on above: (Positive cutoff 300 ng/mL) Drug screen results are to be used for medical purposes only. All positive results are unconfirmed. Testing for employment or legal uses should be sent to a reference laboratory for confirmation. Lactic Acidon 06-13-2019 Lactate [Moles/Vol] 1.2 mmol/L 0.5 - 2. 2 mmol/L [place] Lipaseon 06-13-2019 Lipase [Catalytic activity/Vol] 8 U/L Low 13 - 60 U/L [place] Microscopic Urinalysison Amorphous, UA NOT REPORTED None [place] Bacteria, UA 2+ Abnormal [place] Casts UA 5 TO 10 HYALINE /LPF [place] Casts UA 2 TO 5 WAXY /LPF [place] Crystals, UA NOT REPORTED None /HPF [place] Epithelial Cells UA LOADED /HPF [place] Interpretation and review of laboratory results Abnormal [place] Mucus, UA 4+ Abnormal [place] Other Observations UA NOT REPORTED NOT REQ. [place] RBC (U) [#/Vol] 5 TO 10 [place] Renal Epithelial, UA NOT REPORTED 0 /HPF [place] Trichomonas, UA NOT REPORTED None [place] WBC, UA 10 TO 20 0 /HPF [place] Yeast, UA NOT REPORTED None [place] Otheron 06-13-2019 Interpretation and review of laboratory results Abnormal [place] Immature granulocytes (Bld) [#/Vol] NOT REPORTED 0 % [place] , Urineon 0 Beta HCG ( test) Ql (U) Negative NEGATIVE [place] Urinalysis, reflex to micros copicon 06-13-2019 Bilirubin Urine 3+ Abnormal NEGATIVE [place] Color, UA BROWN Abnormal YELLOW [place] Glucose, Ur Negative NEGATIVE [place] Interpretation and review of laboratory results Abnormal [place] Ketones Ql (U) MODERATE Abnormal NEGATIVE [place] Leukocyte esterase Test strip Ql (U) 1+ Abnormal NEGATIVE [place] Nitrite, Urine Positive Abnormal NEGATIVE [place] pH, UA 5.0 [place] Protein (U) [Mass/Vol] 1+ Abnormal NEGATIVE [place] Specific [place], UA 1.020 [place] Turbidity UA CLEAR CLEAR [place] Urinalysis Comments [place] Urine Hgb TRACE Abnormal NEGATIVE [place] Urobilinogen, Urine 12 mg/dL Abnormal Normal [place] Vital Signs Date Time Vital Sign Value Performing Clinician Facility 10-05-2023 21:00-0400 Body temperature 99.61 [degF] Violet Juarez MD Work Phone: [facility] 10-05-2023 21:00-0400 Diastolic blood pressure 68 mm[Hg] Violet Juarez MD Work Phone: [facility] 10-05-2023 21:00-0400 Heart rate 93 /min Violet Juarez MD Work Phone: [facility] 10-05-2023 21:00-0400 Respiratory rate 16 /min Violet Juarez MD Work Phone: [facility] 10-05-2023 21:00-0400 SaO2% (BldA) [Mass fraction] 97 % Violet Juarez MD Work Phone: [facility] 10-05-2023 21:00-0400 Systolic blood pressure 114 mm[Hg] Violet Juarez MD Work Phone: [facility] 05-13-2023 11:27-0500 Body temperature 98.6 [degF] Jonathan Martinez [facility] 05-13-2023 11:27-0500 Diastolic blood pressure 78 mm[Hg] Jonathan Martinez [facility] 05-13-2023 11:27-0500 Heart rate 83 /min Jonathan Martinez [facility] 05-13-2023 11:27-0500 Respiratory rate 18 /min Jonathan Martinez [facility] 05-13-2023 11:27-0500 SaO2% (BldA) [Mass fraction] 97 % Jonathan Martinez [facility] 05-13-2023 11:27-0500 Systolic blood pressure 113 mm[Hg] Jonathan Martinez [facility] 05-11-2023 21:49-0500 Body temperature 98.06 [degF] [facility] 05-11-2023 21:49-0500 Diastolic blood pressure 84 mm[Hg] [facility] 05-11-2023 21:49-0500 Heart rate 105 /min [facility] 05-11-2023 21:49-0500 Respiratory rate 17 /min [facility] 05-11-2023 21:49-0500 SaO2% (BldA) [Mass fraction] 97 % [facility] 05-11-2023 21:49-0500 Systolic blood pressure 130 mm[Hg] [facility] 05-10-2023 11:41-0500 Body height 160 cm Chet Berumen Work Phone: [facility] [employer] 05-10-2023 11:41-0500 Body mass index (BMI) [Ratio] 44.29 kg/m2 Chet Berumen DO Work Phone: [facility] [employer] 05-10-2023 11:41-0500 Body temperature 97.9 [degF] Chet Berumen DO Work Phone: [facility] [employer] 05-10-2023 11:41-0500 Body weight 113.4 kg Chet Berumen DO Work Phone: [facility] [employer] 05-10-2023 11:41-0500 Diastolic blood pressure 76 mm[Hg] Chet Berumen DO Work Phone: [facility] [employer] 05-10-2023 11:41-0500 Heart rate 94 /min Chet Berumen DO Work Phone: [facility] [employer] 05-10-2023 11:41-0500 Respiratory rate 18 /min Chet Berumen DO Work Phone: [facility] [employer] 05-10-2023 11:41-0500 SaO2% (BldA) [Mass fraction] 96 % Chet Berumen DO Work Phone: [facility] [employer] 05-10-2023 11:41-0500 Systolic blood pressure 146 mm[Hg] Chet Berumen DO Work Phone: [employer] 09-04-2022 11:27-0400 Body height 160 cm Erin Lacy MD Work Phone: [employer] 09-04-2022 11:27-0400 Body mass index (BMI) [Ratio] 44.99 kg/m2 Erin Lacy MD Work Phone: [employer] 09-04-2022 11:27-0400 Body temperature 98.2 [degF] Erin Lacy MD Work Phone: [employer] 09-04-2022 11:27-0400 Body weight 115.21 kg Erin Lacy MD Work Phone: [employer] 09-04-2022 11:27-0400 Diastolic blood pressure 71 mm[Hg] Erin Lacy MD Work Phone: [employer] 09-04-2022 11:27-0400 Heart rate 88 /min Erin Lacy MD Work Phone: [employer] 09-04-2022 11:27-0400 Respiratory rate 18 /min Erin Lacy MD Work Phone: [employer] 09-04-2022 11:27-0400 SaO2% (BldA) [Mass fraction] 97 % Erin Lacy MD Work Phone: [employer] 09-04-2022 11:27-0400 Systolic blood pressure 124 mm[Hg] Erin Lacy MD Work Phone: [employer] 06-29-2022 09:49-0400 Diastolic blood pressure 57 mm[Hg] Todd Bing [facility] 06-29-2022 09:49-0400 Heart rate 73 /min Todd Bing [facility] 06-29-2022 09:49-0400 Mean blood pressure 76 mm[Hg] Todd Bing [facility] 06-29-2022 09:49-0400 Respiratory rate 16 /min Todd Bing [facility] 06-29-2022 09:49-0400 Systolic blood pressure 113 mm[Hg] Todd Bing [facility] 05-19-2022 19:28-0400 Body height 160 cm Erin Lacy MD Work Phone: [employer] 05-19-2022 19:28-0400 Body mass index (BMI) [Ratio] 45.17 kg/m2 Erin Lacy MD Work Phone: [employer] 05-19-2022 19:28-0400 Body weight 115.67 kg Erin Lacy MD Work Phone: [employer] 05-19-2022 19:25-0400 Body temperature 98.29 [degF] Erin Lacy MD Work Phone: [employer] 05-19-2022 19:25-0400 Diastolic blood pressure 68 mm[Hg] Erin Lacy MD Work Phone: [employer] 05-19-2022 19:25-0400 Heart rate 78 /min Erin Lacy MD Work Phone: [employer] 05-19-2022 19:25-0400 Respiratory rate 16 /min Erin Lacy MD Work Phone: [employer] 05-19-2022 19:25-0400 SaO2% (BldA) [Mass fraction] 98 % Erin Lacy MD Work Phone: [employer] 05-19-2022 19:25-0400 Systolic blood pressure 110 mm[Hg] Erin Lacy MD Work Phone: [employer] 05-11-2022 19:17-0500 Body height 160 cm Anuj Quinn MD Work Phone: [employer] 05-11-2022 19:17-0500 Body mass index (BMI) [Ratio] 45.06 kg/m2 Anuj Quinn MD Work Phone: [employer] 05-11-2022 19:17-0500 Body temperature 98.01 [degF] Anuj Quinn MD Work Phone: [employer] 05-11-2022 19:17-0500 Body weight 115.39 kg Anuj Quinn MD Work Phone: [employer] 05-11-2022 19:17-0500 Diastolic blood pressure 91 mm[Hg] Anuj Quinn MD Work Phone: [employer] 05-11-2022 19:17-0500 Heart rate 78 /min Anuj Quinn MD Work Phone: [employer] 05-11-2022 19:17-0500 Respiratory rate 18 /min Anuj Quinn MD Work Phone: [employer] 05-11-2022 19:17-0500 SaO2% (BldA) [Mass fraction] 96 % Anuj Quinn MD Work Phone: [employer] 05-11-2022 19:17-0500 Systolic blood pressure 121 mm[Hg] Anuj Quinn MD Work Phone: [employer] 10-12-2021 18:31-0400 Heart rate 93 /min Rishabh Mancini MD Work Phone: [employer] 10-12-2021 18:31-0400 Respiratory rate 16 /min Rishabh Mancini MD Work Phone: [employer] 10-12-2021 18:31-0400 SaO2% (BldA) [Mass fraction] 97 % Rishabh Mancini MD Work Phone: [employer] 10-12-2021 18:12-0400 Body height 160 cm Rishabh Mancini MD Work Phone: [employer] 10-12-2021 18:12-0400 Body mass index (BMI) [Ratio] 47.12 kg/m2 Rishabh Mancini MD Work Phone: [employer] 10-12-2021 18:12-0400 Body temperature 99.19 [degF] Rishabh Mancini MD Work Phone: [employer] 10-12-2021 18:12-0400 Body weight 120.66 kg Rishabh [facility]ini MD [facility] 10-12-2021 18:12-0400 Diastolic blood pressure 77 mm[Hg] [facility]ishab[facility] 10-12-2021 18:12-0400 Systolic blood pressure 126 mm[Hg] Rishabh [facility]ancini MD [facility] Phone[facility] 07-22-2021 10:38-0400 Body height 160 cm Clark Moser MD Work Phone: [facility] [place] 07-22-2021 10:38-0400 Body mass index (BMI) [Ratio] 47.63 kg/m2 [facility] 07-22-2021 10:38-0400 Body temperature 97.3 [degF] [facility] 07-22-2021 10:38-0400 Body weight 121.97 kg Clark [facility] 07-22-2021 10:38-0400 Diastolic blood pressure 88 mm[Hg] [facility] 07-22-2021 10:38-0400 Heart rate 104 /min Clark [facility] 07-22-2021 10:38-0400 Respiratory rate 18 /min [facility] 07-22-2021 10:38-0400 SaO2% (BldA) [Mass fraction] 95 % Clark [facility] 07-22-2021 10:38-0400 Systolic blood pressure 126 mm[Hg] Clark Moser MD Work Phone: [facility] 05-15-2021 09:11-0500 Body height 160 cm Angelito Harvey [facility] 05-14-2021 10:41-0500 Body height 160 cm Farhat Vang MD Work Phone: [facility] 05-14-2021 10:41-0500 Body mass index (BMI) [Ratio] 44.96 kg/m2 Farhat Vang MD Work Phone: [facility] 05-14-2021 10:41-0500 Body temperature 97.81 [degF] Farhat Vang MD Work Phone: [facility] 05-14-2021 10:41-0500 Body weight 115.12 kg Farhat Vang MD Work Phone: [facility] 05-14-2021 10:41-0500 Diastolic blood pressure 78 mm[Hg] Farhat Vang MD Work Phone: [facility] 05-14-2021 10:41-0500 Heart rate 98 /min Farhat Vang MD Work Phone: [facility] 05-14-2021 10:41-0500 Respiratory rate 18 /min Farhat Vang MD Work Phone: [facility] 05-14-2021 10:41-0500 SaO2% (BldA) [Mass fraction] 97 % Farhat Vang MD Work Phone: [facility] 05-14-2021 10:41-0500 Systolic blood pressure 124 mm[Hg] Farhat Vang MD Work Phone: [facility] 04-16-2021 10:15-0500 Body height 160 cm Farhat Vang MD Work Phone: [facility] 04-16-2021 10:15-0500 Body mass index (BMI) [Ratio] 44.44 kg/m2 Farhat Vang MD Work Phone: [facility] 04-16-2021 10:15-0500 Body temperature 98.01 [degF] Farhat Vang MD Work Phone: [facility] 04-16-2021 10:15-0500 Body weight 113.81 kg Farhat Vang MD Work Phone: [facility] 04-16-2021 10:15-0500 Diastolic blood pressure 78 mm[Hg] Farhat Vang MD Work Phone: [facility] 04-16-2021 10:15-0500 Heart rate 100 /min Farhat Vang MD Work Phone: [facility] 04-16-2021 10:15-0500 Respiratory rate 18 /min Farhat Vang MD Work Phone: [facility] 04-16-2021 10:15-0500 SaO2% (BldA) [Mass fraction] 96 % Farhat Vang MD Work Phone: [facility] 04-16-2021 10:15-0500 Systolic blood pressure 122 mm[Hg] Farhat Vang MD Work Phone: [facility] 03-23-2021 12:40-0500 Body height 160 cm Anuj Quinn MD Work Phone: [facility] 03-23-2021 12:40-0500 Body mass index (BMI) [Ratio] 44.46 kg/m2 Anuj Quinn MD Work Phone: [facility] 03-23-2021 12:40-0500 Body temperature 99.7 [degF] Anuj Quinn MD Work Phone: [facility] 03-23-2021 12:40-0500 Body weight 113.85 kg Anuj Quinn MD Work Phone: [facility] 03-23-2021 12:40-0500 Diastolic blood pressure 74 mm[Hg] Anuj Quinn MD Work Phone: [facility] 03-23-2021 12:40-0500 Heart rate 107 /min Anuj Quinn MD Work Phone: [employer] [place] 03-23-2021 12:40-0500 Respiratory rate 16 /min Anuj Quinn MD Work Phone: [facility] [place] 03-23-2021 12:40-0500 SaO2% (BldA) [Mass fraction] 96 % Anuj Quinn MD Work Phone: [facility] 03-23-2021 12:40-0500 Systolic blood pressure 131 mm[Hg] Anuj Quinn MD Work Phone: [facility] 01-15-2021 10:43-0500 Body height 160 cm Holland Ann MD Work Phone: [facility] 01-15-2021 10:43-0500 Body mass index (BMI) [Ratio] 42.55 kg/m2 Holland Ann MD Work Phone: [facility] 01-15-2021 10:43-0500 Body temperature 97.39 [degF] Holland Ann MD Work Phone: [facility] 01-15-2021 10:43-0500 Body weight 108.95 kg Holland Ann MD Work Phone: [facility] 01-15-2021 10:43-0500 Diastolic blood pressure 66 mm[Hg] Holladn Ann MD Work Phone: [facility] 01-15-2021 10:43-0500 Heart rate 101 /min Holland Ann MD Work Phone: [facility] 01-15-2021 10:43-0500 SaO2% (BldA) [Mass fraction] 96 % Holland Ann MD Work Phone: [facility] 01-15-2021 10:43-0500 Systolic blood pressure 112 mm[Hg] Holland Ann MD Work Phone: [facility] 12-27-2020 18:15-0400 Body temperature 98.49 [degF] Wayne Springer MD Work Phone: [employer] Work Phone: 12-27-2020 18:15-0400 Diastolic blood pressure 77 mm[Hg] Wayne Springer MD Work Phone: [employer] Work Phone: Comment on above: Simultaneous filing. User may not have s een previous data. 12-27-2020 18:15-0400 Heart rate 98 /min Wayne Springer MD Work Phone: [employer] Work Phone: 12-27-2020 18:15-0400 Respiratory rate 20 /min Wayne Springer MD Work Phone: [employer] Work Phone: 12-27-2020 18:15-0400 SaO2% (BldA) [Mass fraction] 95 % Wayne Springer MD Work Phone: [employer] Work Phone: Comment on above: Simultaneous filing. User may not have s een previous data. 12-27-2020 18:15-0400 Systolic blood pressure 107 mm[Hg] Wayne Springer MD Work Phone: [employer] Work Phone: Comment on above: Simultaneous filing. User may not have s een previous data. 11-20-2020 21:07-0400 Body height 160 cm Anuj Quinn MD Work Phone: [employer] Work Phone: 11-20-2020 21:07-0400 Body mass index (BMI) [Ratio] 38.62 kg/m2 Anuj Quinn MD Work Phone: [employer] Work Phone: 11-20-2020 21:07-0400 Body temperature 98.6 [degF] Anuj Quinn MD Work Phone: [employer] Work Phone: 11-20-2020 21:07-0400 Body weight 98.88 kg Anuj Quinn MD Work Phone: [employer] Work Phone: 11-20-2020 21:07-0400 Diastolic blood pressure 65 mm[Hg] Anuj Quinn MD Work Phone: [employer] Work Phone: 11-20-2020 21:07-0400 Heart rate 84 /min Anuj Quinn MD Work Phone: [employer] Work Phone: 11-20-2020 21:07-0400 Respiratory rate 16 /min Anuj Quinn MD Work Phone: [employer] Work Phone: 11-20-2020 21:07-0400 SaO2% (BldA) [Mass fraction] 97 % Anuj Quinn MD Work Phone: [employer] Work Phone: 11-20-2020 21:07-0400 Systolic blood pressure 113 mm[Hg] Anuj Quinn MD Work Phone: [employer] Work Phone: 11-07-2020 16:28-0400 Body height 160 cm Nicholas Roger MD Work Phone: [employer] Work Phone: 11-07-2020 16:28-0400 Body mass index (BMI) [Ratio] 38.26 kg/m2 Nicholas Roger MD Work Phone: [employer] Work Phone: 11-07-2020 16:28-0400 Body temperature 98.8 [degF] Nicholas Roger MD Work Phone: [employer] Work Phone: 11-07-2020 16:28-0400 Body weight 97.98 kg Nicholas Roger MD Work Phone: [employer] Work Phone: 11-07-2020 16:28-0400 Diastolic blood pressure 71 mm[Hg] Nicholas Roger MD Work Phone: [employer] Work Phone: 11-07-2020 16:28-0400 Heart rate 98 /min Nicholas Roger MD Work Phone: [employer] Work Phone: 11-07-2020 16:28-0400 Respiratory rate 18 /min Nicholas Roger MD Work Phone: [employer] Work Phone: 11-07-2020 16:28-0400 SaO2% (BldA) [Mass fraction] 94 % Nicholas Roger MD Work Phone: [employer] Work Phone: 11-07-2020 16:28-0400 Systolic blood pressure 120 mm[Hg] Nicholas Roger MD Work Phone: [employer] Work Phone: 07-09-2020 10:52-0400 Body height 160 cm Zelda CrawleyEriberto FLORES Work Phone: [facility] 07-09-2020 10:52-0400 Body mass index (BMI) [Ratio] 41.27 kg/m2 Zelda Bautista RECREATIONAL DIRECTOR Work Phone: [facility] 07-09-2020 10:52-0400 Body weight 105.69 kg Zelda Bautista CNP Work Phone: [facility] 07-09-2020 10:52-0400 Diastolic blood pressure 70 mm[Hg] Zelda Bautista CNP Work Phone: [facility] 07-09-2020 10:52-0400 Heart rate 97 /min Zelda Bautista MARK Work Phone: [facility] 07-09-2020 10:52-0400 Systolic blood pressure 101 mm[Hg] Zelda Bautista CNP Work Phone: [facility] 06-24-2020 09:48-0400 Body mass index (BMI) [Ratio] 40.92 kg/m2 Anuj Quinn MD Work Phone: [facility] Work Phone: 06-24-2020 09:48-0400 Body temperature 97.9 [degF] Anuj Quinn MD Work Phone: [facility] Work Phone: 06-24-2020 09:48-0400 Body weight 104.78 kg Anuj Quinn MD Work Phone: [facility] Work Phone: 06-24-2020 09:48-0400 Diastolic blood pressure 64 mm[Hg] Anuj Quinn MD Work Phone: [facility] Work Phone: 06-24-2020 09:48-0400 Heart rate 120 /min Anuj Quinn MD Work Phone: [facility] Work Phone: 06-24-2020 09:48-0400 Respiratory rate 18 /min Anuj Quinn MD Work Phone: [facility] Work Phone: 06-24-2020 09:48-0400 SaO2% (BldA) [Mass fraction] 100 % Anuj Quinn MD Work Phone: [facility] Work Phone: 06-24-2020 09:48-0400 Systolic blood pressure 115 mm[Hg] Anuj Quinn MD Work Phone: [facility] Work Phone: 06-09-2020 10:44-0400 Body height 160 cm Lelo Gallegos MD Work Phone: [facility] 06-09-2020 10:44-0400 Body mass index (BMI) [Ratio] 41.27 kg/m2 Lelo Gallegos MD Work Phone: [facility] 06-09-2020 10:44-0400 Body weight 105.69 kg Lelo Gallegos MD Work Phone: [facility] 06-09-2020 10:44-0400 Diastolic blood pressure 75 mm[Hg] Lelo Gallegos MD Work Phone: [facility] 06-09-2020 10:44-0400 Heart rate 116 /min Lelo Gallegos MD Work Phone: [facility] 06-09-2020 10:44-0400 Systolic blood pressure 110 mm[Hg] Lelo Gallegos MD Work Phone: [facility] 03-26-2020 22:17-0500 Pulse (Heart Rate) 98 /min [facility] [place] [place] 03-26-2020 21:43-0500 BP Diastolic 66 mm[Hg] [facility] [place] [facility] [place] 03-26-2020 21:43-0500 BP Systolic 99 mm[Hg] [facility] [place] [facility] [place] 03-26-2020 21:43-0500 Pulse Oximetry 95 % Brie Josh [employer] [facility] , [place] 03-26-2020 20:50-0500 Respiratory Rate 16 /min Brie Moreno [facility] [place] 03-26-2020 20:13-0500 BMI (Body Mass Index) 40.14 kg/m2 Brie Moreno [facility] [place] 03-26-2020 20:13-0500 Body Temperature 98.2 [degF] [facility] [place] 03-26-2020 20:13-0500 Body weight 102.78 kg [facility] , [place] 02-15-2020 18:22-0500 BMI (Body Mass Index) 39.75 kg/m2 [facility] [place] 02-15-2020 18:22-0500 Body Temperature 98.6 [degF] [facility] [place] 02-15-2020 18:22-0500 Body weight 101.79 kg [facility] [place] [facility] [place] 02-15-2020 18:22-0500 BP Diastolic 78 mm[Hg] [facility] [place] [facility] [place] 02-15-2020 18:22-0500 BP Systolic 127 mm[Hg] [facility] [place] [facility] [place] 02-15-2020 18:22-0500 Height 160 cm Brie Moreno [facility] , [place] 02-15-2020 18:22-0500 Pulse (Heart Rate) 92 /min Brie Moreno [facility], [place] 02-15-2020 18:22-0500 Pulse Oximetry 99 % Brie Moreno [facility] , [place] 02-15-2020 18:22-0500 Respiratory Rate 20 /min Brie Moreno [facility], [place] 11-20-2019 18:48-0400 BP Diastolic 75 mm[Hg] [facility], [place] 11-20-2019 18:48-0400 BP Systolic 128 mm[Hg] [facility], [place] 11-20-2019 18:48-0400 Pulse (Heart Rate) 83 /min [facility], [place] 11-20-2019 18:48-0400 Pulse Oximetry 97 % [facility] [place], [place] 11-20-2019 18:48-0400 Respiratory Rate 18 /min [facility], [place] 11-20-2019 17:00-0400 BMI (Body Mass Index) 36.31 kg/m2 [facility], [place] 11-20-2019 17:00-0400 Body Temperature 98.4 [degF] [facility], [place] 11-20-2019 17:00-0400 Body weight 92.99 kg [facility], [place] 11-03-2019 11:37-0400 BMI (Body Mass Index) 34.47 kg/m2 [facility], [place] 11-03-2019 11:37-0400 Body Temperature 98.71 [degF] [facility], [place] 11-03-2019 11:37-0400 Body weight 88.27 kg [facility], [place] 11-03-2019 11:37-0400 BP Diastolic 66 mm[Hg] [facility], [place] 11-03-2019 11:37-0400 BP Systolic 117 mm[Hg] [facility], [place] 11-03-2019 11:37-0400 Height 160 cm [facility] [place] 11-03-2019 11:37-0400 Pulse (Heart Rate) 87 /min [facility] [place] 11-03-2019 11:37-0400 Pulse Oximetry 99 % [facility] [place] 11-03-2019 11:37-0400 Respiratory Rate 20 /min Wayne [place], [place] 08-13-2019 19:42-0400 BMI (Body Mass Index) 31 kg/m2 [facility] 08-13-2019 19:42-0400 Body Temperature 98.6 [degF] [facility] 08-13-2019 19:42-0400 Body weight 79.[address] [facility] 08-13-2019 19:42-0400 Height [address] [facility] 08-13-2019 19:40-0400 BP Diastolic 60 mm[Hg] [facility] 08-13-2019 19:40-0400 BP Systolic 156 mm[Hg] [facility] 08-13-2019 19:40-0400 Pulse (Heart Rate) 138 /min [facility] 08-13-2019 19:40-0400 Pulse Oximetry 98 % [facility] 08-13-2019 19:40-0400 Respiratory Rate 16 /min [facility] 06-17-2019 12:45-0400 Respiratory Rate 18 /min [facility] 06-17-2019 07:54-0400 Body Temperature 97.81 [degF] [facility] 06-17-2019 07:54-0400 BP Diastolic 66 mm[Hg] [facility] 06-17-2019 07:54-0400 BP Systolic 99 mm[Hg] [facility] 06-17-2019 07:54-0400 Pulse (Heart Rate) 82 /min [facility] 06-17-2019 07:54-0400 Pulse Oximetry 94 % [facility] 06-14-2019 08:15-0400 BMI (Body Mass Index) 32.92 kg/m2 [facility] 06-14-2019 08:15-0400 Body weight 81.65 kg [facility] 06-14-2019 08:15-0400 Height 157.5 cm [facility] 06-14-2019 04:20-0400 Pulse (Heart Rate) 83 /min [facility] [place] 06-14-2019 04:05-0400 BP Diastolic 58 mm[Hg] [facility] [place] [facility] [place] 06-14-2019 04:05-0400 BP Systolic 95 mm[Hg] [facility] [place] [facility] [place] 06-14-2019 04:05-0400 Pulse Oximetry 95 % [facility] [place] [facility] [place] 06-14-2019 01:12-0400 Respiratory Rate 18 /min [facility] [place] 06-14-2019 00:10-0400 Body Temperature 100.51 [degF] [facility] [place] 06-13-2019 22:00-0400 BMI (Body Mass Index) 32.31 kg/m2 [facility] [place] 06-13-2019 22:00-0400 Body weight 82.74 kg [facility] [place] [facility] [place] 06-13-2019 22:00-0400 Height 160 cm [facility] [place] [facility] [place] 04-28-2019 19:58-0500 Body Temperature 98.8 [degF] [facility] [place] 04-28-2019 19:58-0500 BP Diastolic 70 mm[Hg] Roslyn Keating [facility] [place] , [place] 04-28-2019 19:58-0500 BP Systolic 98 mm[Hg] [facility] [place] [facility] [place] 04-28-2019 19:58-0500 Pulse (Heart Rate) 119 /min [facility] [place] 04-28-2019 19:58-0500 Pulse Oximetry 100 % [facility] [place] , [place] 04-28-2019 19:58-0500 Respiratory Rate 30 /min [facility] [place] 04-28-2019 19:54-0500 BMI (Body Mass Index) 30.65 kg/m2 Roslyn Keating [employer] [facility] [place] 04-28-2019 19:54-0500 Body weight 78.47 kg Roslyn Keating [facility] , [place] 04-28-2019 19:54-0500 Height 160 cm Roslyn [place], [place] Encounters Encounter Date Encounter Type Care Provider Facility Start: 12-07-2023 End: 12-07-2023 ambulatory MARK ELIANA Not Available Start: 11-23-2023 End: 11-23-2023 ambulatory MARK ELIANA Not Available Start: 11-09-2023 End: 11-09-2023 ambulatory MARK ELIANA Not Available Start: 10-26-2023 End: 10-26-2023 ambulatory MARK ELIANA Not Available Start: 10-05-2023 End: 10-05-2023 ambulatory VIOLET S [facility] Start: 10-05-2023 End: 10-05-2023 Subsequent hospital visit by physician Violet Juarez MD Work Phone: [id number] Start: 10-05-2023 End: 10-05-2023 Emergency department patient visit VIOLET S [facility] Start: 10-05-2023 End: 10-05-2023 Emergency department patient visit LINDA Lilly [facility] Start: 09-12-2023 End: 09-12-2023 ambulatory MARK ELIANA Not Available Start: 08-16-2023 End: 08-16-2023 ambulatory MARK ELIANA Not Available Start: 07-26-2023 End: 07-26-2023 ambulatory BLAKE KAUFFMAN [facility] Start: 07-19-2023 End: 07-19-2023 ambulatory MARK ELIANA Not Available Start: 06-21-2023 End: 06-21-2023 ambulatory MARK ELIANA Not Available Start: 05-20-2023 End: 05-20-2023 ambulatory MARK ELIANA Not Available Start: 05-13-2023 End: 05-13-2023 Emergency department patient visit Jonathan Martinez [facility] Start: 05-13-2023 End: 05-13-2023 Emergency department patient visit Jonathan Martinez [facility] Start: 05-11-2023 End: 05-12-2023 Emergency department patient visit Zac Fields Facility[facility] Start: 05-11-2023 End: 05-11-2023 Emergency department patient visit Zac Fields [facility] Start: 05-10-2023 End: 05-10-2023 Emergency department patient visit LINDA SHEPPARD [facility] Start: 05-10-2023 End: 05-10-2023 Emergency department patient visit Chet Wahl Lachelle STEWART Work Phone: [facility] ED Comment on above: Toothache (Primary D x); Dental decay Start: 12-27-2022 End: 12-27-2022 ambulatory [facility] Start: 11-23-2022 End: 11-23-2022 ambulatory MARK DUMONT [facility] Start: 09-04-2022 End: 09-04-2022 Emergency department patient visit Erin Lacy MD Work Phone: [facility] Comment on above: Sprain of right ankl e, unspecified ligament, initial encounter (Primary Dx) Start: 06-29-2022 End: 06-30-[address] MARK DUMONT . Facility: Start: 06-29-2022 End: 06-30-2022 ambulatory Linda Sheppard Facility:[facility] Start: 06-29-2022 End: 06-29-2022 Pain Management Todd Smart [facility] Start: 06-14-2022 End: 06-14-[address] MARK DUMONT . Facility: Start: 05-19-2022 End: 05-19-2022 Emergency department patient visit Erin Lacy MD Work Phone: [facility] Comment on above: Dry socket (Primary Dx) Start: 05-11-2022 End: 05-11-2022 Emergency department patient visit Anuj Quinn MD Work Phone: [facility] Comment on above: Masseter muscle spas m (Primary Dx); Other acute postprocedural pain Start: 03-30-[address] MARK DUMONT . Facili ty:[facility] Start: 03-29-2022 End: 03-29-2022 Subsequent hospital visit by physician [facility] Start: 10-12-2021 End: 10-12-2021 Emergency department patient visit Rishabh Mancini MD Work Phone: [facility] Comment on above: Acute bronchitis, un specified organism (Primary Dx) Start: 07-22-2021 End: 07-22-2021 Emergency department patient visit Clark Moser MD Work Phone: [facility] Comment on above: Acute pharyngitis, u nspecified etiology (Primary Dx) Start: 07-07-2021 ambulatory BRIE ROCA [facility] Start: 06-18-2021 ambulatory NARCIS [facility] Start: 06-17-2021 End: 06-18-2021 ambulatory [facility] Start: 05-15-2021 End: 05-19-2021 ambulatory [facility] Start: 05-15-2021 End: 05-15-2021 Nutrition therapy Farhat Vang MD Work Phone: [facility] Comment on above: Morbid obesity with body mass index (BMI) of 40.0 or higher (HCC) Start: 05-14-2021 End: 05-18-2021 [facility] Start: 05-14-2021 End: 05-14-2021 Office outpatient visit 15 minutes Farhat Vang MD Work Phone: [facility] Comment on above: Anxiety and depressi on (Primary Dx); At risk for obstructive sleep apnea; Chronic bilateral low back pain without sciatica; Hepatitis C antibody positive in blood; Body mass index 40.0-44.9, adult (HCC); History of opioid abuse (HCC) Start: 04-16-2021 End: 04-20-2021 ambulatory NARCIS DAWIT [facility] Start: 04-16-2021 End: 04-16-2021 Initial preventive medicine new pt age 18-39yrs Farhat Vang MD Work Phone: [facility] Comment on above: Encounter for genera l adult medical examination with abnormal findings (Primary Dx); Anxiety and depression; History of opioid abuse (HCC); Morbid obesity with body mass index (BMI) of 40.0 or higher (HCC) Start: 04-16-2021 End: 04-16-2021 Patient encounter status Farhat Vang MD Work Phone: [facility] Start: 03-23-2021 End: 03-23-2021 Emergency department patient visit Anuj Quinn MD Work Phone: [facility] Comment on above: COVID-19 (Primary Dx ); Omphalitis in adult Start: 02-16-2021 End: 02-20-2021 ambulatory [facility] Start: 02-12-2021 End: 02-16-2021 ambulatory PHYSICIAN [facility] Start: 02-10-2021 End: 02-14-2021 ambulatory [facility] Start: 02-02-2021 End: 02-06-2021 ambulatory PHYSICIAN [facility] Start: 01-15-2021 Documentation procedure Jeimy goodman NUTRITION HELPER [facility] Start: 01-15-2021 End: 01-15-2021 ambulatory HOLLAND ANN [facility] Ambulatory Start: 01-15-2021 End: 01-15-2021 Office outpatient new 30 minutes Holland Ann MD Work Phone: [facility] Comment on above: Hemorrhoids, unspeci fied hemorrhoid type Start: 12-29-2020 End: 01-02-2021 ambulatory PHYSICIAN [facility] Start: 12-27-2020 End: 12-27-2020 Emergency department patient visit Wayne Springer MD Work Phone: [facility] Comment on above: Viral syndrome (Prim prakash Dx) Start: 11-20-2020 End: 11-20-2020 Emergency department patient visit Anuj Quinn MD Work Phone: [facility] Comment on above: Strain of rhomboid m uscle, initial encounter; Chest wall muscle strain, initial encounter Start: 11-07-2020 End: 11-07-2020 Emergency department patient visit Nicholas Roger MD Work Phone: [facility] Comment on above: Viral URI (Primary D x) Start: 08-28-2020 End: 08-30-2020 Evaluation and management of inpatient [facility] Start: 08-25-2020 End: 08-25-2020 ambulatory PHYSICIAN [facility] Start: 07-29-2020 End: 08-02-2020 ambulatory PHYSICIAN [facility] Start: 07-22-2020 End: 07-26-2020 ambulatory [facility] Start: 07-22-2020 End: 07-22-2020 Telemedicine consultation with patient Lelo Gallegos MD Work Phone: [facility] Comment on above: Diet controlled gest ational diabetes mellitus (GDM) in third trimester Start: 07-10-2020 ambulatory LELO ADAMS [facility] Ambulatory Start: 07-09-2020 End: 07-09-2020 ambulatory ZELDA BAUTISTA [facility] Start: 07-09-2020 End: 07-09-2020 Office outpatient visit 15 minutes Zelda Bautista CNP Work Phone: [facility] Comment on above: Diet controlled gest ational diabetes mellitus (GDM) in third trimester (Primary Dx) Start: 06-24-2020 End: 06-24-2020 Emergency department patient visit Anuj Quinn MD Work Phone: [facility] Comment on above: Acute frontal sinusi tis, recurrence not specified (Primary Dx) Start: 06-10-2020 End: 06-10-2020 Nutrition therapy Lelo Gallegos Work Phone: [facility] Comment on above: Diet controlled gest ational diabetes mellitus (GDM) in second trimester Start: 06-09-2020 End: 06-09-2020 Office outpatient new 30 minutes Roslyn Stevenson MD Work Phone: [facility] Comment on above: Diet controlled gest ational diabetes mellitus (GDM) in second trimester Start: 05-27-2020 End: 05-31-2020 ambulatory PHYSICIAN [facility] Start: 05-21-2020 End: 05-25-2020 ambulatory PHYSICIAN [facility] Start: 03-26-2020 End: 03-26-2020 Emergency department patient visit Brie Moreno Work Phone: [facility] Comment on above: Atypical pneumonia ( Primary Dx) Start: 02-15-2020 End: 02-15-2020 Emergency department patient visit Brie Moreno Work Phone: [facility] Comment on above: Pain, dental (Primar y Dx); Acute gingivitis; Alveolar osteitis Start: 11-20-2019 End: 11-20-2019 Emergency department patient visit Tiagoedu Puri Kai Work Phone: [facility] Comment on above: Bacterial vaginosis (Primary Dx); Trichimoniasis; Furuncle of left axilla Start: 11-03-2019 End: 11-03-2019 Emergency department patient visit Wayne Maryuri Springer Work Phone: [facility] Comment on above: Poison arabella (Primary Dx) Start: 08-20-2019 End: 08-21-2019 Patient encounter procedure HODA MADERA [facility] Start: 08-20-2019 End: 08-20-2019 Subsequent hospital visit by physician [facility] Start: 08-13-2019 End: 08-13-2019 Emergency department patient visit Christian Martinez Work Phone: [facility] Comment on above: Heroin abuse (HCC) ( Primary Dx) Start: 06-20-2019 End: 06-20-2019 Patient encounter procedure Alisa Palencia Work Phone: [facility] Comment on above: Hepatitis C virus in fection without hepatic coma, unspecified chronicity (Primary Dx) Start: 06-18-2019 End: 06-18-2019 Documentation procedure Taryn Torres [facility] Start: 06-18-2019 Follow-up encounter Taryn Stokes Osiel bear [facility] Comment on above: Transition Of Care Start: 06-18-2019 End: 06-18-2019 Patient encounter procedure Taryn Stokes Torres [facility] Start: 06-14-2019 End: 06-17-2019 Evaluation and management of inpatient [facility] Work Phone: [facility] Comment on above: Elevated LFTs; IVDA (intravenous drug abuse) complicating (HCC) Start: 06-13-2019 End: 06-14-2019 Emergency department patient visit Brie Benjamin Josh Work Phone: [facility] Comment on above: Abdominal pain, unsp ecified abdominal location (Primary Dx); Urinary tract infection with hematuria, site unspecified; Viral hepatitis without hepatic coma, unspecified chronicity, unspecified viral hepatitis type; Polysubstance abuse (HCC); Hyperbilirubinemia Start: 04-28-2019 End: 04-28-2019 Emergency department patient visit Roslyn Keating Work Phone: [facility] Comment on above: Accidental overdose of heroin, initial encounter (HCC) (Primary Dx) Start: 12-20-2016 End: 01-02-2020 Cancer cervix - screening done Lelo Gallegos MD Work Phone: [facility] Start: 12-20-2016 End: 01-02-2020 Encounter for gynecological examination (general) (routine) without abnormal findings Jeimy Tan NUTRITION HELPER [facility] Procedures Date Procedure Procedure Detail Performing Clinician Start: 09-04-2022 Radex ankle complete minimum 3 views Erin Lacy MD Work Phone: Start: 09-04-2022 Urine test visual color cmprsn meths Erin Lacy MD Work Phone: Start: 05-11-2022 [...] Work Phone: Start: 06-09-2020 Hemoglobin glycosylated a1c Leol Gallegos MD Work Phone: Start: 03-26-2020 COVID-19 Brie Branham Work Phone: Start: 03-26-2020 Urnls dip stick/tabl et rgnt auto w/o microscopy Brie Moreno Work Phone: Start: 03-26-2020 Blood count complete auto&auto difrntl wbc Brie Moreno Work Phone: Start: 03-17-2020 Adult depression scr eening assessment Neris Ulloa RD Start: 11-20-2019 Smr prim src wet harrison nt nfct agt Crescenciomagui Quinn Work Phone: Start: 11-01-2019 Microscopic observat ion [Identifier] in Cervix by Cyto stain Neris Ulloa Start: 06-17-2019 Basic metabolic 2000 panel - Serum or Plasma Raquib Ahmed [employer] Work Phone: Start: 06-17-2019 Hepatic function 200 0 panel - Serum or Plasma Raquib Ahmed [employer] Work Phone: Start: 06-16-2019 Bilirubin.direct [Mass/volume] in Serum or Plasma Indra Castro Edmond Work Phone: Start: 06-16-2019 Complete blood count (hemogram) panel - Blood by Automated count Indra Castro Edmond Work Phone: Start: 06-16-2019 Comprehensive metabo lic 2000 panel - Serum or Plasma Indra Castro Edmond Work Phone: Start: 06-15-2019 Radionuclide hepatob iliary [...] Mri abdomen w/o cont rast material Indra Castro Edmond Work Phone: Start: 06-14-2019 Drugs of abuse urine screening test Indra Castro Edmond Work Phone: Start: 06-14-2019 Urinalysis Carli Ro constantine Sims Work Phone: Start: 06-14-2019 Acetaminophen [Mass/ volume] in Serum or Plasma Indra Matthew Pruitt Work Phone: Start: 06-14-2019 Bilirubin.direct [Mass/volume] in Serum or Plasma Indra Matthew Pruitt Work Phone: Start: 06-14-2019 Complete blood count with white cell differential, automated Indra Castro Edmond Work Phone: Start: 06-14-2019 Complete blood count with white cell differential, manual Indra Matthew Pruitt Work Phone: Start: 06-14-2019 Comprehensive metabo lic 2000 panel - Serum or Plasma Indra Matthew Pruitt Work Phone: Start: 06-14-2019 Hepatitis panel measurement Indra Castro Edmond Work Phone: Start: 06-14-2019 INR in Platelet poor plasma by Coagulation assay Indra Matthew Pruitt Work Phone: Start: 06-14-2019 Lactate [Moles/volum e] in Serum or Plasma Indra Matthew Pruitt Work Phone: Start: 06-14-2019 Manual Differential panel - Blood Indra Matthew Pruitt Work Phone: Start: 06-14-2019 Red blood cell morphology Indra Matthew Pruitt Work Phone: Start: 06-14-2019 Salicylates [Mass/vo [...] Phone: Start: 06-13-2019 Assay of amylase Brie Moreon Work Phone: Start: 06-13-2019 Assay of lipase [...] of 2) Shingles Vaccine (1 of 2) Joslyn mccormick- [place], [place] Start: 12-29-2025 Screening for malignant neoplasm of cervix Pap Smear [facility] Start: 10-31-2024 Screening for malignant neoplasm of cervix Pap Smear [facility] Start: 12-30-2023 Screening for malignant neoplasm of cervix [facility] Start: 11-11-2023 Respiratory Syncytial Virus (RSV) or age 60 yrs+ (1 - Risk 1-dose series) Respiratory Syncytial Virus (RSV) or age 60 yrs+ (1 - Risk 1-dose series) [facility] Start: 11-10-2023 End: 11-10-2023 Patient encounter procedure 11/10/2023 10:00 AM [facility] [address] [place] [address] [facility] Start: 10-27-2023 End: 10-27-2023 Patient encounter procedure 10/27/2023 10:00 AM EDT [facility] [address] [place] [address] [facility] Start: 10-13-2023 End: 10-13-2023 Patient encounter procedure 10/13/2023 10:00 AM EDT [facility] [facility] [address] [place] [address] Return in about 2 weeks (around 10/04/2023) for twins, dopplers, growth, [facility]vag. [facility] Comment on above: Return in about 2 weeks (around ) for twins, dopplers, growth, transvag. Start: 10-07-2023 Tdap Vaccine during Tdap Vaccine during [facility] Start: 10-06-2023 Influenza vaccination Flu vaccine (#1) [facility] Start: 10-31-2022 Screening for malignant neoplasm of cervix [facility] Work Phone: Start: 10-05-2022 Influenza vaccination Flu vaccine (#1) [facility] Start: 04-16-2022 History and physical examination, annual for health maintenance Wellness Visit [facility] Start: 02-13-2022 Depression Remission Assessment (PHQ9) Depression Remission Assessment (PHQ9) [facility] Start: 12-29-2021 History and physical examination, annual for health maintenance Wellness Visit [facility] Start: 11-12-2021 End: 11-12-2021 Patient encounter procedure 11/12/2021 Office Visit Primary Care Farhat Vang MD [address] [facility] [address] [place] [address] [facility] Start: 11-05-[address] [facility] Start: 10-05-2021 Influenza vaccination Flu vaccine (#1) [facility] Start: 06-26-2021 End: 06-26-2021 Nutrition therapy 06/26/2021 Nutrition Nutrition Farhat Vang MD [address] [facility] [address] [place] [address] [address]ito [address] [facility] Nutritional Services Start: 05-15-2021 End: 05-15-2021 Nutrition therapy 05/15/2021 Nutrition Nutrition Angelito Harvey [facility] Nutritional Services Start: 05-14-2021 End: 05-14-2021 Patient encounter procedure 05/14/2021 Office Visit Primary Care Farhat Vang MD [address] [facility] [address] [place] [address] [facility] Start: 03-17-2021 Depression screening using PHQ-9 (Patient Health Questionnaire 9) score Depression Screening (PHQ9) [facility] Start: 01-15-2021 Depression Remission Assessment (PHQ9) Depression Remission Assessment (PHQ9) [facility] Start: 01-09-2021 Hemoglobin A1c measurement A1C [facility] Start: 12-09-2020 HbA1c (Bld) [Mass fraction] A1C [facility] Start: 12-09-2020 Hemoglobin A1c measurement A1C [facility] Start: 11-05-2020 Influenza vaccination [facility] Start: 10-31-2020 History and physical examination, annual for health maintenance Wellness Visit [facility] Start: 08-28-2020 End: 08-28-2020 Admission to same day surgery center 08/28/2020 Surgery Obstetrics Roslyn Stevenson MD [address] [place] [address] [address] [phone] SECTION [facility] Delivery Comment on above: SECTION Start: 08-28-2020 Subsequent hospital visit by physician 08/28/2020 Hospital Encounter Obstetrics Roslyn Stevenson MD [address] [place] [address] [phone] [facility] Delivery Start: 08-25-2020 End: 08-25-2020 Office Visit 08/25/2020 Office Visit Endocrinology Zelda Bautista, RECREATIONAL DIRECTOR [address] [place] [address] [phone] [facility] Start: 07-31-2020 End: 07-31-2020 Office Visit 07/31/2020 Office Visit Endocrinology Benito Krueger, RECREATIONAL DIRECTOR [address] [place] [address] [phone] [facility] Start: 07-29-2020 End: 07-29-2020 Patient encounter procedure 07/29/2020 Routine Obstetrics and Gynecology Larissa, Regla Arriaga CNM [address] [place] [phone] [facility] [employer] Start: 07-22-2020 End: 07-22-2020 Telemedicine consultation with patient 07/22/2020 Telemedicine Nutrition Lelo Gallegos MD [address] [place] [address] [phone] [facility] Nutritional Services Start: 07-17-2020 End: 07-17-2020 Patient encounter procedure 07/17/2020 Routine Obstetrics and Gynecology Yvonne Santos MD [address] [place] [phone] [facility] [employer] - [facility] Start: 07-09-2020 End: 07-09-2020 Office Visit 07/09/2020 Office Visit Endocrinology Zelda Bautista, MARK [address] [place] [address] [phone] [facility] Start: 07-04-2020 End: 07-04-2020 Patient encounter procedure 07/04/2020 Routine Obstetrics and Gynecology Radha Pantoja MD [address] [place] [phone] [facility] - [facility] Start: 06-26-2020 End: 06-26-2020 Patient encounter procedure 06/26/2020 Office Visit Endocrinology Janie Chen PA-C [address] [place] [address] [phone] [facility] Start: 06-24-2020 End: 06-24-2020 Nutrition [facility] Nutrition[facility] Start: 06-19-2020 End: 06-19-2020 Routine 06/19/2020 Routine Obstetrics and Gynecology Regla Dias CNM [address] [place] [phone] [facility] [employer]ICE [employer] - [facility] Start: 05-17-2020 Depression screening using PHQ-9 (Patient Health Questionnaire 9) score Depression Screening (PHQ9) [facility] Start: 2020 Screening for malignant neoplasm of cervix [facility] Start: 02-26-2020 End: 02-26-2020 Initial 02/26/2020 Initial Obstetrics and Gynecology Jai Huerta MD [address] [place] [address] [place] [address] [facility] [employer] SERVICE INSTRU[employer] Start: 11-06-2019 Influenza vaccination [facility] [place] Start: 11-06-2019 Influenza vaccination given [facility] Start: 08-06-2019 Screening for malignant neoplasm of cervix Pap Smear [facility] Start: 06-20-2019 End: 06-20-2019 Office Visit 06/20/2019 Office Visit Transition of Care Alisa Palencia, RECREATIONAL DIRECTOR [address] [facility] [address] [place] [address] [phone] [facility] Start: 11-05-2018 Influenza vaccination Flu vaccine (#1) [place], [place] Start: 11-05-2018 Influenza vaccination given Sequential Influenza Vaccine (#1) [facility] Start: 03-21-2015 Cervical cancer screen Cervical cancer screen [place], [place] Start: 03-21-2015 Screening for malignant neoplasm of cervix Cervical cancer screen [place] Start: 04-05-2014 Screening for malignant neoplasm of cervix Pap smear [facility] Start: 2009 DTaP/Tdap/Td vaccine (1 - Tdap) DTaP/Tdap/Td vaccine (1 - Tdap) [place] Start: 2009 Hepatitis B vaccine (1 of 3 - Risk 3-dose series) Hepatitis B vaccine (1 of 3 - Risk 3-dose series) [facility] Work Phone: Start: 2008 Hepatitis C screening Hepatitis C screen [facility] Start: 2006 COVID-19 Vaccine (1) COVID-19 Vaccine (1) [facility] Start: 2005 HIV screen HIV screen [place], [place] Start: [address] HIV screen [facility] Start: 2002 COVID-19 Vaccine (1) COVID-19 Vaccine (1) [facility] Start: 2002 Depression Monitoring Depression Monitoring [facility] Start: 2001 DTaP/Tdap/Td vaccine (1 - Tdap) DTaP/Tdap/Td vaccine (1 - Tdap) [place] Start: 2001 DTaP/Tdap/Td vaccine (5 - Tdap) DTaP/Tdap/Td vaccine (5 - Tdap) [facility] Start: 2000 Albumin DL <= 20 mg/L (U) [Mass/Vol] Urine Microalbumin [facility] Start: 2000 Diabetic foot examination Foot Exam [facility] Start: 2000 Microalbumin measurement, urine, quantitative Urine Microalbumin [facility] Start: 2000 Ophthalmic examination and evaluation Ophthalmology Exam [facility] Start: 1996 Pneumococcal 0-64 years Vaccine (1 of 1 - PPSV23) Pneumococcal 0-64 years Vaccine (1 of 1 - PPSV23) [place] Start: 1996 Pneumococcal Vaccine: Ped or At-Risk (1 of 2 - PPSV23) Pneumococcal Vaccine: Ped or At-Risk (1 of 2 - PPSV23) [facility] Start: 1995 COVID-19 Vaccine (1) COVID-19 Vaccine (1) [facility] Start: 1993 History and physical examination, annual for health maintenance Wellness Visit [facility] Start: 1991 Varicella vaccine (1 of 2 - 2-dose childhood series) Varicella vaccine (1 of 2 - 2-dose childhood series) [facility] Start: 1990 COVID-19 Vaccine (#1) COVID-19 Vaccine (#1) [facility] Start: 1990 Hepatitis B vaccine (1 of 3 - 3-dose series) Hepatitis B vaccine (1 of 3 - 3-dose series) [facility] Start: 1990 Hepatitis C screening Hepatitis C screen [facility] Start: 1990 Tetanus vaccination Tetanus: Every 10yrs [facility] Anti smooth muscle antibody IgA level Anti-Smooth Muscle Antibody Lab Add-On 06/15/2019 1:50 PM EDT [facility] Antimitochondrial antibody titer Antimitochondrial Antibody Lab Add-On 06/15/2019 1:50 PM EDT [facility] End: 11-20-2019 C.trachomatis N.gonorrhoeae DNA, Urine C.trachomatis N.gonorrhoeae DNA, Urine Microbiology STAT One Time for 1 Occurrences starting 11/20/2019 until 11/20/2019 [place] Comment on above: One Time for 1 Occurrences starting 11/05 until 11/20/2019 C.trachomatis N.gonorrhoeae DNA, Urine C.trachomatis N.gonorrhoeae DNA, Urine Microbiology Stat [employer] Label print 11/20/2019 5:55 PM EDT [place] End: 03-26-2020 Covid-19 Ambulatory Covid-19 Ambulatory Lab Routine Once for 1 Occurrences starting 03/26/2020 until 03/26/2020 [place] Comment on above: Once for 1 Occurrences starting 03/26/19 until 03/26/2020 Covid-19 Ambulatory Covid-19 Amb ulatory Lab Routine 03/26/2020 8:44 PM EST [place] End: 06-13-2019 Culture, Blood 1 Culture, Blood 1 Microbiology STAT One Time for 1 Occurrences starting 06/13/2019 until 06/13/2019 [place] Comment on above: One Time for 1 Occurrences starting 10/2019 until 06/13/2019 Culture, Blood 1 [place], [place] End: 03-23-2021 Culture, Wound [facility] Work Phone: Comment on above: One Time for 1 Occurrences starting 03/07 until 03/23/2021 Cytomegalovirus DNA assay CMV DN A Detection and Quant, Blood Lab Routine 06/15/2019 1:50 PM EDT [facility] Kirsten-Hazel Virus P CR, Quantitative Kirsten-Hazel Virus PCR, Quantitative Lab Routine 06/15/2019 1:50 PM EDT [facility] End: 04-16-2022 Hemoglobin A1c/Hemoglobin.total in Blood Hemoglobin A1c Lab Routine Encounter for general adult medical examination with abnormal findings 1 Occurrences starting 04/16/2021 until 04/16/2022 [facility] Work Phone: Comment on above: 1 Occurrences starting 04/16/2021 until 04/16/2022 Hemoglobin A1c/Hemoglobin.total in Blood Hemoglobin A1c Lab Routine Encounter for general adult medical examination with abnormal findings 04/16/2021 10:58 AM [facility] End: 04-16-2022 Hepatitis C antibody measurement Hepatitis C Antibody Lab Routine Encounter for general adult medical examination with abnormal findings 1 Occurrences starting 04/16/2021 until 04/16/2022 [facility] Comment on above: 1 Occurrences starting 04/16/2021 until 04/16/2022 Hepatitis C antibody measurement Hepatitis C Antibody Lab Routine Encounter for general adult medical examination with abnormal findings 04/16/2021 10:58 AM [facility] MDI Treatment MDI Treatment Re spiratory Care Routine Every 6hr As Needed until discontinued starting 03/26/2020 [facility] [place] [place] Comment on above: Every 6hr As Needed until discontinued s tarting 03/26/2020 Nonrebreather mask oxygen Nonreb reather mask oxygen Respiratory Care Routine As Needed until discontinued starting 10/05/2023 ALEXADNRA PANIAGUA [facility] Comment on above: As Needed until discontinued starting Nuclear Ab IF (S) [Titer] KENIA La b Add-On 06/15/2019 1:50 PM EDT [facility] End: 06-24-2020 Urinalysis, reflex to microscopic Urinalysis, reflex to microscopic Lab STAT One Time for 1 Occurrences starting 06/24/2020 until 06/24/2020 [facility] Work Phone: Comment on above: One Time for 1 Occurrences starting 06/06 until 06/24/2020 End: 05-14-2022 XR Lumbar Spine Complete AP/Lat w Obls XR Lumbar Spine Complete AP/Lat w Obls Imaging Routine Chronic bilateral low back pain without sciatica 1 Occurrences starting 05/14/2021 until 05/14/2022 [facility] Work Phone: Comment on above: 1 Occurrences starting 05/14/2021 until 05/14/2022 Payers Date Payer Category Payer Medicaid [employer] [id number] 2021-Present [phone] [address] [place] [address] [id number]. 7.3.852439.315 2021 Unknown [id number] 1.2.840.857360.1.13.239.2. 7.3.723994.315 2017 Medicaid [id number] 1.2.840.082027.1.13.385.2. 7.3.068076.315 2012 Medicaid [id number] 1.2.840.850768.1.13.239.2. 7.3.666721.315 2012 Medicaid [id number] 2008 Private Health Insurance [id number] 1990 Unknown [id number] 2.16.840.1.326529.3.579.2. 173 1990 Unknown [id number] 2.16.840.1.700925.3.579.2. 900 1990 Unknown [id number] 2.16.840.1.766085.3.579.2. 900 1990 Unknown [id number] 2.16.840.1.383928.3.579.2. 900 1990 Unknown [id number] 2.16.840.1.279959.3.579.2. 900 1990 Unknown [id number] 2.16.840.1.623238.3.579.2. 900 1990 Unknown [id number] 2.16.840.1.979561.3.579.2. 900 1990 Unknown [id number] 2.16.840.1.072433.3.579.2. 900 1990 Unknown [id number] 2.16.840.1.241974.3.579.2. 903 1990 Unknown [id number] 2.16.840.1.982621.3.579.2. 903 1990 Unknown [id number] 2.16.840.1.231280.3.579.2. 903 1990 Unknown [id number] 2.16.840.1.809680.3.579.2. 903 1990 Unknown [id number] 2.16.840.1.522772.3.579.2. 903 1990 Unknown [id number] 2.16.840.1.019986.3.579.2. 903 1990 Unknown [id number] 2.16.840.1.049311.3.579.2. 903 1990 Unknown [id number] 2.16.840.1.252362.3.579.2. 903 1990 Unknown [id number] 2.16.840.1.329243.3.579.2. 903 1990 Unknown [id number] 2.16.840.1.450493.3.579.2. 903 1990 Unknown [id number] 2.16.840.1.380797.3.579.2. 903 1990 Unknown [id number] 2.16.840.1.864012.3.579.2. 903 1990 Unknown [id number] 2.16.840.1.474961.3.579.2. 903 1990 Unknown [id number] 2.16.840.1.947456.3.579.2. 903 1990 Unknown [id number] 2.16.840.1.286306.3.579.2. 903 1990 Unknown [id number] 2.16.840.1.421676.3.579.2. 593 1990 Unknown [id number] 2.16.840.1.374267.3.579.2. 593 1990 Unknown [id number] 2.16.840.1.404176.3.579.2. 593 1990 Unknown [id number] 2.16.840.1.810840.3.579.2. 593 1990 Unknown [id number] 2.16.840.1.632719.3.579.2. 727 1990 Unknown [id number] 2.16.840.1.838298.3.579.2. 727 1990 Unknown [id number] 2.16.840.1.250183.3.579.2. 727 1990 Unknown [id number] 2.16.840.1.710877.3.579.2. 174 1990 Unknown [id number] 2.16.840.1.278327.3.579.2. 174 1990 Unknown [id number] 2.16.840.1.291621.3.579.2. 174 1990 Unknown [id number] 2.16.840.1.856039.3.579.2. 174 1990 Unknown [id number] 2.16.840.1.460898.3.579.2. 174 1990 Unknown [id number] 2.16.840.1.714541.3.579.2. 1259 1990 Unknown [id number] 2.16.840.1.175733.3.579.2. 9 1990 Unknown [id number] 2.16.840.1.021404.3.579.2. 9 1990 Unknown [id number] 2.16.840.1.467009.3.579.2. 9 1990 Unknown [id number] 2.16.840.1.027339.3.579.2. 9 1990 Unknown [id number] 2.16.840.1.082321.3.579.2. 9 1990 Unknown [id number] 2.16.840.1.031574.3.579.2. 9 1990 Unknown [id number] 2.16.840.1.151265.3.579.2. 9 1990 Unknown [id number] 2.16.840.1.366138.3.579.2. 9 1990 Unknown [id number] 2.16.840.1.924663.3.579.2. 175 1990 Unknown [id number] 2.16.840.1.691048.3.579.2. 175 1990 Unknown [id number] 2.16.840.1.291302.3.579.2. 175 1959 Unknown [id number] Social History Date Type Detail Facility Start: 04-28-2019 End: 11-03-2019 Tobacco smoking status NHIS [facility] End: 02-15-2020 History of tobacco use Cigarette Smoker [facility] Start: 04-28-2019 End: 10-05-2023 Cigarettes smoked current (pack per day) - Reported [employer] [facility] [employer] Start: 04-28-2019 Alcohol intake Current drinke r of alcohol (finding) Jos[facility] Start: 1990 Sex [facility]igned At [facility] file [facility] Start: 06-13-2019 End: 10-05-2023 Alcohol intake [facility] Exposure to SARS-CoV -2 (event) Unable to assess [facility] Start: 05-18-2019 End: 04-16-2021 History SDOH Alcohol Frequency 3 [facility] Start: 05-18-2019 End: 07-16-2020 History SDOH Alcohol Std Drinks 5 [facility] Start: 05-04-2021 End: 05-19-2022 Exposure to SARS-CoV-2 (event) Not sure [facility] Start: 11-20-2019 End: 07-26-2023 Tobacco use and exposure [facility] Start: 06-09-2020 End: 07-26-2023 Tobacco smoking status OKIS Former smoker [facility] End: 02-15-2020 History of tobacco use Current smoker [facility] Start: 12-09-2019 [facility] Start: 04-16-2021 History SDOH Social Connections Get Together 4 [facility] Start: 04-16-2021 History SDOH Food Worry 1 [facility] Start: 09-04-2022 End: 10-05-2023 Sex Assigned At Female [facility] Start: 09-04-2022 History SDOH Alcohol Frequency 2 [employer] [employer] How often to you hav e a drink containing alcohol? Monthly or less [employer] Average Number of Drinks Not on file [employer] How often to you hav e a drink containing alcohol? Never [facility] [employer] Medical Equipment Procedure Code Equipment Code Equipment Origin al Text Equipment Identifier Dates Use to check BG QID Dx O24.14 . [id number] Start: 06-09-2020 Use as instructe d to check BG QID Dx O24.14 . [id number] Start: 06-09-2020 End: 06-11-2020 use to test BLOO D SUGAR FOUR TIMES DAILY [id number] Start: 06-09-2020 Goals Date Patient Goal Desired [...] Follow these instructions at home: Medicines Take tcoz-fkg-pwzjxym and prescription medicines only as told by [...] provider. Document Revised: 04/30/2021 Document Reviewed: 04/30/2021 [employer] Patient Education 2022 [employer]. Follow Up Care 05/13/2023 11:20:07 With:[facility] Address: [place] [address]- Business (1) When:05/16/2023 12:45:32 Comments:Dentistry follow-up [facility] 05-12-2023 Hospital Discharg e instructions Patient Education 05/11/2023 23:33:09 Dental Pain, Gnho-ue-Texj Dental Pain Dental pain is often a [...] Follow these instructions at home: Medicines Take dbzn-lyc-lpqfonv and prescription medicines only as told by [...] damage to the area. Brushing your teeth Gordon your teeth twice a day using a [...] only when you eat or drink. Take peqw-yqq-pypsdvg and prescription medicines only as told by your dentist. Watch your dental pain for any changes. Let your dentist know if symptoms get worse. This information is not intended to replace advice given to you by your health care provider. Make sure you discuss any questions you have with your health care provider. Document Revised: 11/26/2020 Document Reviewed: 11/26/2020 [employer] Patient Education 2022 [employer]. Follow Up Care 05/11/2023 21:26:40 With:Linda Sheppard DO Address: [address] [place], [place] [address] , [place] [phone] When:05/14/2023 [facility] 05-11-2023 Evaluation + Plan note Extrac roxann from: Title:ED Note Author:Violet Wlaters PA-C ate:05/11/23 1. Pain, dental (K08.89: Oth er specified disorders of teeth and supporting structures) Ordered: amoxicillin-clavulanate, = 1 tab(s), Oral, q12hr, X 7 day(s), # 14 tab(s), Refills(s) 0, Pharmacy: [facility], 160, cm, 05/11/23 21:53:00 EST, Height/Length Dosing, 110, kg, 05/11/23 21:53:00 EST, Weight Dosing chlorhexidine topical, 0.018 gm, 15 mL, Oral, BID, 480 mL, Refill(s) 0, (swish and spit; do not swallow), [facility], 160, cm, 05/11/23 21:53:00 EST, Height/Length Dosing, 110, kg, 05/11/23 21:53:00 EST, Weight Dosing 2. Infected dental caries (K02.9: Dental caries, unspecified) Ordered: amoxicillin-clavulanate, = 1 tab(s), Oral, q12hr, X 7 day(s), # 14 tab(s), Refills(s) 0, Pharmacy: [facility], 160, cm, 05/11/23 21:53:00 EST, Height/Length Dosing, 110, kg, 05/11/23 21:53:00 EST, Weight Dosing chlorhexidine topical, 0.018 gm, 15 mL, Oral, BID, 480 mL, Refill(s) 0, (swish and spit; do not swallow), [facility], 160, cm, 05/11/23 21:53:00 EST, Height/Length Dosing, 110, kg, 05/11/23 21:53:00 EST, Weight Dosing 3. First trimester (Z34.91: Encounter for supervision of normal , unspecified, first trimester) Periapical abscess without sinus (K04.7: Periapical abscess without sinus) Orders: ketorolac, 30 mg = 1 mL, Injection, IntraMuscular, Once, Stop date 05/11/23 23:31:00 EST, STAT, Start date 05/11/23 23:31:00 EST, 05/11/23 23:31:00 EST [facility]03-05-2024 Hospital Discharge instructions* Discharge Instructions* Chet Berumen DO - 05/10/2023 11:50 AM EST Use amoxicillin as prescribed. Use Tylenol as needed for pain. Follow-up with dentist as soon as possible. * Attachments The following attachments cannot be sent through Care Everywhere. * Tooth Decay (Bruneian) * Tooth and Gum Pain (Bruneian) [facility] History of Present illness Narrative* Angelito [...] Current Outpatient Medications Ordered in [facility] Medication Sig Dispense Refill baclofen (LIORESAL) 10 [...] mouth daily . No current [facility]-ordered facility-administered medications on file. Lab Results Component [...] - 6-7 PM- crock pot meals- goulash; Kyrgyz chicken; spicy rice with chicken and beans; [...] calorie goals/day. Estimated Nutritional Needs: Calorie Needs: 6528-9617 kcals/day (MSJ x 1.3AF -500-1000 to promote gradual weight loss) Patient/Family Education: Learner: family and patient Readiness: action - ready to set action plan and implement goals Barriers to Learning: none Method: explanation and handout Response: verbalizes understanding Expected Adherence: good Education Materials Provided: Healthy Meal Planning handout ([facility]), Goal Sheet, 1,775-Ndawfdr1-Cgq Menus (NCM), 1,800-Calorie 5-Day Menus (NCM), Weight Loss Tips (NCM) Monitoring/Evaluation: Lab results, weight, food recall, meal planning, goal achievement, physical activity, medication management. This documentation has been sent to the referring healthcare provider. Angelito Harvey RDN, LD Personal Office documented in this [id number] History of Present illness Narrative* Farhat Vang [...] C hepatitis virus. Patient was referred to clinical technician and the recommendation was made for [...] improve, for Follow Up. documented in this [id number] History of Present illness Narrative* Farhat Vang [...] current medications that are prescribed by her psychiatric aides teacher. She has 4 children at home she [...] Not difficult at all documented in this [id number] History of Present illness Narrative* Holland Ann [...] Friends and Family: Not on file Attends Religion Services: Not on file Active Member of [...] Report 12/29/2020 Final Value:Gynecologic Cytology Report Case: [id number] Authorizing Provider: Germania Valentino, Collected: 12/29/2020 11:09 AM RECREATIONAL DIRECTOR Ordering Location: [facility] AUTO SERVICE INSTRUCTOR - An Received: 12/30/2020 12:03 PM [facility] First Screen: Violet Craig Rescreen: Talya Abel [...] from every slide are reviewed by a manager decision support. Specimen processing and Primary Screening performed at: [facility] - [address] [place] [address] HPV Results 12/29/2020 Final Value:This result contains [...] physician. Holland Ann MD documented in this [id number] History of Present illness Narrative* Jeimy Tan LPN - 01/15/2021 11:17 AM EST This nurse acted as a hydro plant operator for a rectal exam by Dr. Ann for Tia. Tia verbalized consent to be examined, appeared comfortable and tolerated the exam well. documented in this [id number] History of Present illness Narrative* Neris Ulloa, [...] no 2) I will try yoga on Africa's Talking - yes but didn't feel comfortable doing [...] oatmeal packet. Snack celery + PB or Cambodian yogurt or green peppers. Lunch - will be light if full from snack and may have an early dinner. Dinner - pork chops, steamed vegetables. Snack - Cambodian yogurt or vegetables or watermelon. Beverages - [...] Current Outpatient Medications Ordered in [facility] Medication Sig Dispense Refill blood sugar diagnostic [...] FOUR TIMES DAILY No current [facility]-ordered facility-administered medications on file. SMBG Results: 86-163. [...] the referring healthcare provider. documented in this [id number] Instructions* Patient Instructions* Zelda Bautista CNP - [...] to renew/prescribe testing supplies. documented in this [id number] History of Present illness Narrative* Zelda Bautista [...] visit with us. The patient did bring [employer] Protective[employer] sugar meter with her for download today however there is not many readings on it. She states she started a new job at [employer] and does noise get breaks to check [...] hour: 193 3 hour: 176 Assessment: Tia Moorenett 30 y.o. female presents to our office [...] 4. Patient to cont. To follow with atmospheric sciences professor 5. Patient will require 2 hour 75 gram OGTT 8-12 weeks after delivery. 6. Follow-up in 2 weeks. Risks and potential complications of diabetes were reviewed with the patient. Electronically signed by Zelda MARIN 07/09/2110:03 AM documented in this [id number] History of Present illness Narrative* Lelo Gallegos [...] month during . While awaiting appointment with atmospheric sciences professor, patient provided with details of GDM diet, [...] 1 hour post prandial. 4. Referral to atmospheric sciences professor 5. Patient will require 2 hour 75 gram OGTT 8-12 weeks after delivery. 6. Follow-up in 2 weeks. Risks and potential complications of diabetes were reviewed with the patient. documented in this encounterOhioHealthEvaluation + Plan note No data available for this section [facility]* Diagnosis Diet controlled gestational diabetes mellitus (GDM) in second trimester [facility] [place] [facility] Diagnosis Acute frontal sinusitis, recurrence not specified- Primary documented in this encounter [employer] Phone: evaluation note* Diagnosis Diet controlled gestational diabetes mellitus (GDM) in third trimester- Primary [facility] [place] [facility]* Diagnosis Diet controlled gestational diabetes mellitus (GDM) in third trimester [facility] [place] [facility]* Diagnosis Viral URI- Primary Acute upper respiratory infections of unspecified site documented in this encounter [employer] Phone: [email or web address] note* Diagnosis Strain of rhomboid muscle, initial encounter Chest wall muscle strain, initial encounter documented in this encounter [employer] Phone: evaluation note* Diagnosis Viral syndrome- Primary Unspecified viral infection, in conditions classified elsewhere and of unspecified site documented in this encounter [employer] Phone: evaluation note* Diagnosis Hemorrhoids, unspecified hemorrhoid type [facility] [place] [facility]* Diagnosis COVID-19- Primary Omphalitis in adult Unspecified local infection of skin and subcutaneous tissue documented in this encounter [employer] Phone: evaluation note* Diagnosis Encounter for general adult medical examination with abnormal findings- Primary Anxiety and depression History of opioid abuse (HCC) Morbid obesity with body mass index (BMI) of 40.0 or higher (HCC) documented in this encounter [facility] note* Diagnosis Anxiety and depression- Primary At risk for obstructive sleep apnea Chronic bilateral low back pain without sciatica Hepatitis C antibody positive in blood Body mass index 40.0-44.9, adult (HCC) Body Mass Index 40.0-44.9, adult History of opioid abuse (HCC) documented in this encounter [facility] note* Diagnosis Morbid obesity with body mass index (BMI) of 40.0 or higher (HCC) documented in this encounter [facility] note* Diagnosis Acute pharyngitis, unspecified etiology- Primary documented in this encounter [employer] Phone: evalxannnv note* Diagnosis Acute bronchitis, unspecified organism- Primary documented in this encounter ALEXANDRA PANIAGUA [employer] Phone: evaluation note* Diagnosis Masseter muscle spasm- Primary Spasm of muscle Other acute postprocedural pain documented in this encounter [facility] [employer] Phone: evaluation note* Diagnosis Dry socket- Primary Alveolitis of jaw documented in this encounter [facility] [employer] Phone: evaluation note* Diagnosis Sprain of right ankle, unspecified ligament, initial encounter- Primary documented in this encounter [facility] [employer] [facility] Diagnosis Toothache- Primary Unspecified disorder of the teeth and supporting structures Dental decay Unspecified dental caries documented in this encounter [facility] [place] [facility]* Diagnosis 26 weeks gestation of - Primary state, incidental documented in this encounter [facility]* Instructions* Anuj Quinn MD - 06/24/2020 Although many chny-wyx-pjcccxd cough cold flu sinus medications are safe in , I would contact her AUTO SERVICE INSTRUCTOR office in [facility] to verify what your AUTO SERVICE INSTRUCTOR group feels a safe in . Tylenol [...] be sent through Care Everywhere. * Sinusitis (Bruneian) documented in this [facility] Discharge instructions* Attachments The following attachments cannot be sent through Care Everywhere. * URI (Upper Respiratory Infection) (Bruneian) documented in this [facility] Phone: Hospital Discharge instructions* Attachments The following attachments cannot be sent through Care Everywhere. * Muscle Strain (Bruneian) documented in this [facility]: Hospital Discharge instructions* Attachments The following attachments cannot be sent through Care Everywhere. * Viral Infections (Bruneian) documented in this [facility] Phone: Hospital Discharge instructions* Attachments The following attachments cannot be sent through Care Everywhere. * Coronavirus Disease (COVID-19): General Info (Bruneian) * Coronavirus Disease (COVID-19): Isolation (Bruneian) * Piercing: Infection (Bruneian) documented in this [employer] Phone: [facility] Discharge instructions* Instructions* Clark Moser MD - 07/22/2021 Use Tylenol or Motrin for pain. Take amoxicillin twice a day. Amoxicillin treats strep throat, ear infections, bronchitis and pneumonia. Call primary care doctor for close follow-up. * Attachments The following attachments cannot be sent through Care Everywhere. * Sore Throat (Bruneian) documented in this [employer] Phone: [facility] Discharge instructions* Attachments The following attachments cannot be sent through Care Everywhere. * Bronchitis (Bruneian) documented in this [facility] Phone: [facility] Discharge instructions* Attachments The following attachments cannot be sent through Care Everywhere. * Cramp: Muscle (Bruneian) * Pain Post-Surgery: Acute (Bruneian) documented in this [facility] Phone: [facility] Discharge instructions* Attachments The following attachments cannot be sent through Care Everywhere. * Garfield Tooth Extraction: Post-op (Bruneian) documented in this [facility] Phone: [facility] Discharge instructions No data available for this section [facility] Discharge instructions* Attachments The following attachments cannot be sent through Care Everywhere. * Ankle Sprain (Bruneian) documented in this [facility] Discharge instructions* Attachments The following attachments cannot be sent through Care Everywhere. * : Weeks 26 to 30 (Bruneian) * : When to Call (After 20 Weeks): General Info (Bruneian) * : Twins: General Info (Bruneian) documented in this [facility] [employer] [facility] note No data available for this section [facility] for referral (narrative)* Consultation (Routine) Status Reason Specialty Diagnoses / Procedures Referred By Contact Referred To Contact Authorized Nutrition Diagnoses Diet controlled gestational diabetes mellitus (GDM) in second trimester Lelo Gallegos MD [address] [place] [address] Nutrition Services [address] [place] [address] [facility] for visit Narrative* Consultation (Routine) - Pending Review Specialty Diagnoses / Procedures Referred By Contac t Referred To Contact Gastroenterology Diagnoses Hemorrhoids, unspecified hemorrhoid type Germania Galaviz, RECREATIONAL DIRECTOR [address] [place] [address] Holland Ann MD [address] [place] [address] Referral ID Status Reason Start Date Expiration Date V isits Requested Visits Authorized [id number] Pending Review 12/29/2020 01/14/2022 1 1 [facility] Assessments Diagnosis Accidental overdose of [...] FoundDocuments on File Type Date Recorded Patient Sheriff Deputy Expl anation Advance Directives and Living Will Power of Slate Mixer Documents on File Type Date Recorded Patient Sheriff Deputy Expl anation Advance Directives and Living Will 06/14/2019 7:25 AM does not have 3/13/2 0 Latest Code Status on File Code Status Date Activated Date Inactivated Comments Full Code 06/15/2019 9:29 AM 06/17/2019 4:38 PM Full Code - Unverified 06/14/2019 8:35 AM 06/15/2019 9:29 AM Documents on File Type Date Recorded Patient Sheriff Deputy Expl anation Advance Directives and Living Will 06/14/2019 7:25 AM does not have 3/13/2 0 Latest Code Status on File Code Status Date Activated Date Inactivated Comments Full Code 06/15/2019 9:29 AM 06/17/2019 4:38 PM Full Code - Unverified 06/14/2019 8:35 AM 06/15/2019 9:29 AM Documents on File Type Date Recorded Patient Sheriff Deputy Expl anation Advance Directives and Living Will 06/20/2019 1:10 PM does not have 3/13/2 0 Documents on File Type Date Recorded Patient Sheriff Deputy Expl anation ACP-Advance Directive ACP-Power of Slate Mixer Documents on File Type Date Recorded Patient Sheriff Deputy Expl anation Advance Directives and Living Will 06/20/2019 1:10 PM does not have 3/13/2 0 Documents on File Type Date Recorded Patient Sheriff Deputy Expl anation Advance Directives and Living Will 08/28/2020 5:58 AM does not have 3/13/2 0 Latest Code Status on File Code Status Date Activated Date Inactivated Comments Full Code 08/28/2020 11:15 AM 08/30/2020 11:53 AM Full Code 08/28/2020 5:31 AM 08/28/2020 11:07 AM Full Code 06/15/2019 9:29 AM 06/17/2019 4:38 PM Documents on File Type Date Recorded Patient Sheriff Deputy Expl anation Advance Directives and Living Will 08/28/2020 5:58 AM does not have 3/13/2 0 Latest Code Status on File Code Status Date Activated Date Inactivated Comments Full Code 08/28/2020 11:15 AM 08/30/2020 11:53 AM Full Code 08/28/2020 5:31 AM 08/28/2020 11:07 AM Full Code 06/15/2019 9:29 AM 06/17/2019 4:38 PM Documents on File Type Date Recorded Patient Sheriff Deputy Expl anation Advance Directives and Livin g Will 05/15/2021 12:00 AM Latest Code Status on File Code Status Date Activated Date Inactivated Comments Full Code 10/05/2023 9:02 PM Hospital Course * Savita Stiles PA-C - 06/17/2019 10:12 AM EDT [facility] Tia Levin Account: [id number] Admitted: 06/14/2019 Discharge Date/Time: 06/17/19 / 10:12 [...] amphetamine and heroine use who presented to [facility] 06/14/19 with complaints of abdominal pain [...] chart for all vitals, diagnostic data, and field sales consultant notes. I discussed patient's case with Dr. Gregorio, Dr. Hay (GI) and RN. Discharge Medications Medication List ASK your doctor about these medications naltrexone microspheres Commonly known as: VivitroL Inject 380 (three hundred eighty) mg into the shoulder, thigh, or buttocks every 30 (thirty) days . Physician(s) Family: Physician No, Phone: None, Address: [facility] Follow Up: Javier Hay MD [address] [place] [address] [facility] [address] Follow up Repeat weekly CBC, CMP and PT/INR for the next 3-4 weeks then follow up out patient with Dr. Hay. Laboratory Follow Up by [facility]: Weekly labs for CBC, CMP, PT/INR Additional Information: Patient seen and examined day of discharge. For more information regarding patient's care, including complete radiology reports, please contact [facility] at Patient instructions, including activity, [...] amphetamine and heroine use who presented to [facility] 06/14/19 with complaints of abdominal pain [...] 1:16 PM EDT RESOURCES FOR PRIMARY CARE [facility] Primary Care Closed Opens tomorrow [address], [place] [address] [place] [address] [place] [address] DIRECTIONS WEBSITE [facility] Walk-In Care Closed Opens tomorrow 11 AM [address] [place] [address] documented in this encounter* Instructions* Adia Dillon, [...] Opioid Use Disorder: Medication-Assisted Treatment: General Info (Bruneian) documented in this encounter* Attachments The following attachments cannot be sent through Care Everywhere. * Bacterial Vaginosis (Bruneian) * Trichomoniasis (Bruneian) documented in this encounter* Attachments The following attachments cannot be sent through Care Everywhere. * Dental Surgery: Generic: Post-op (Bruneian) documented in this encounter* Attachments The following attachments cannot be sent through Care Everywhere. * Bronchitis (Bruneian) * Pneumonia (Bruneian) documented in this encounter* Attachments The following attachments cannot be sent through Care Everywhere. * Poison Arabella - Pillow - and Sumac (Bruneian) documented in this encounter History of Present Illness * Javier Hay MD - 06/17/2019 9:59 AM EDT GASTROENTEROLOGY DAILY PROGRESS NOTE 1 Patient Name: Tia Levin MR #: [id number] Assessment/Plan: Elevated LFTs Assessment & Plan 29yo [...] Auguste MD - 06/17/2019 7:41 AM EDT [facility]17[facility]2019 Tia Levin 1990 [id number] Assessment/Plan: Tia Levin is a 29 y.o. female with a history of amphetamine and heroine use who presented to [facility] 06/14/19 with complaints of abdominal pain [...] labs, diagnostics, vitals including pulse ox, and field sales consultant/other provider recommendations. No acute issues [...] 2 Patient Name: Tia Levin MR #: [id number] Assessment/Plan: Elevated LFTs Assessment & Plan 29yo [...] Auguste MD - 06/16/2019 9:38 AM EDT [facility] 06/16/2019 Tia Levin 1990 [id number] Assessment/Plan: Tia Levin is a 29 y.o. female with a history of amphetamine and heroine use who presented to [facility] 06/14/19 with complaints of abdominal pain [...] recent labs, diagnostics, vitals including pulseox, and field sales consultant/other provider recommendations. No acute issues [...] 2 Patient Name: Tia Levin MR #: [id number] Assessment/Plan: Elevated LFTs Assessment & Plan 29yo F with PMHx IVDU and hepatitis C who presents from [facility] with elevated LFTs and imaging c/f [...] Pruitt MD - 06/15/2019 10:43 AM EDT [facility] Inpatient Progress Note 06/15/2019 Tia Levin 1990 [id number] Assessment/Plan: Tia Levin is a 29 y.o. female with a history of amphetamine and heroine use who presented to [facility] 06/14/19 with complaints of abdominal pain [...] have a PCP and refused a case work aide consult for assistance. Verified insurance and [...] spoke with patient about going to any [facility] to have her lab taken so it will be available for review on 06/20/19 when she is called for her TCC appointment. Patient agreed with this plan. documented in this encounter* Anastasiia Garza CNP - 06/20/2019 1:16 PM EDT Attempted to call the patient for her tele-health visit today though she did not answer. Called [employer] number 5 times and home phone once, [...] daily (lemon water) Occasional iced coffee at [employer]. Was drinking a lot of Mountain Dew and Energy drinks prior to but stopped. Meals Away From Home - most days, fast food Past Medical History: Past Medical History: Diagnosis Date Anxiety Depression Infectious viral hepatitis hep c PTSD (Post-Traumatic Stress Disorder) History From: History obtained from patient and chart review. Current/Pertinent Medications: prescription for Current Outpatient Medications Ordered in [place] Medication Sig Dispense Refill amoxicillin (AMOXIL) 250 [...] (BMI) of 40.0 or higher ([facility]) Farhat Vang MD [address] [place] [address] Referral ID Status Reason Start Date Expiration Date Visits Requested Visits Authorized [id number] Authorized Specialty Services Required/Pat ient's Best Interest 04/16/2021 04/16/2022 1 1 Specialty Diagnoses / Procedures Referred By Contac t Referred To Contact Neurosurgery Diagnoses Chronic bilateral low back pain without sciatica Farhat Vang MD [address] [place] [address] Carina Kline MD [address] [place] [address] Referral ID Status Reason Start Date Expiration Date Visits Requested Visits Authorized [id number] Authorized Specialty Services Required/Pat ient's Best Interest 05/14/2021 05/14/2022 1 1 Specialty Diagnoses / Procedures Referred By Contac t Referred To Contact Rehabilitation Diagnoses Chronic bilateral low back pain without sciatica Farhat Vang MD [address] [place] [address] Referral ID Status Reason Start Date Expiration Date Visits Requested Visits Authorized [id number] Authorized Specialty Services Required/Pat ient's Best Interest 05/14/2021 05/14/2022 1 1 Specialty Diagnoses / Procedures Referred By Contac t Referred To Contact Diagnoses At risk for obstructive sleep apnea Farhat Vang MD [address] [facility] [address] [place] [address] Gabriel Jacinto MD [address] [place] [address] Referral ID Status Reason Start Date Expiration Date Visits Requested Visits Authorized [id number] Authorized Specialty Services Required/Pat ient's Best Interest [...] in second trimester Lelo Gallegos MD [address] [place] [address] Nutrition Services [address] [place] [address] Reason Comments Gestational Diabetes Status Reason Specialty Diagnoses / Procedures Referred By Contact Referred To Contact Closed Endocrinology Diagnoses Diet controlled gestational diabetes mellitus (GDM) in second trimester Roslyn Stevenson MD [address] [place] [address] Lelo Gallegos MD [address] [place] [address] Reason Comments Pharyngitis sore throat and head [...] (BMI) of 40.0 or higher ([facility]) Farhat Vang MD [address] [facility] [address] [place] [address] Nutrition Services [address] [place] [address] Referral ID Status Reason Start Date Expiration Date Visits Requested Visits Authorized [id number] Authorized Specialty Services Required/Pat ient's Best Interest [...] and Physical Note 06/14/19 Tia Levin 1990 [id number] Assessment/Plan: Tia Levin is a 29 y.o. female with a history of amphetamine and heroine use who presented to [facility] 06/14/19 with complaints of abdominal pain and nausea. [facility] AST 1116 ALT 665 Alk phos 255 T bili 6.5 Lipase 8. CTAP revealed pericholecystic fluid vs GB wall thickening, no gallstones or hepatic pathology noted. Patient transferred to [facility] 06/14/2019 for further treatment and evaluation. 1. Elevated LFTs: [facility] AST 1116 ALT 665 Alk phos 255 T bili 6.5 (normal 02/2019). [facility] CTAP as noted above. RUQ U/S [...] amphetamine and heroine use who presented to [facility] 06/14/19 with complaints of abdominal pain and nausea. [facility] AST 1116 ALT 665 Alk phos [...] labs, diagnostics, vitals including pulse ox, and field sales consultant/other provider recommendations. Discussed with collaborating [...] file Gets together: Not on file Attends sabianism service: Not on file Active member of [...] reviewed, including documentation from previous hospitalizations and field sales consultant recommendations as summarized below. Briefly, [...] Name: Tia Levin Admit Date: MR #: [id number] : 1990 Senior addendum 29 y/o F [...] Fleming MD General Surgery, PGY 2 Pager# [phone] 06/16/2019, 10:43 AM After 5 PM and on Weekends, please page [phone] (Surgery Sensory Scientist mattress and foundation sewer) History of Present Illness: Patient presented for [...] file Gets together: Not on file Attends sabianism service: Not on file Active member of [...] patient. I discussed the case with the resident/CLEANING HANDYMAN and agree with the findings and plan as documented in his/her note and/or any note I supplied. Associated Order(s): IP CONSULT TO GASTROENTEROLOGY GASTROENTEROLOGY CONSULT NOTE 4 Patient Name: Tia Levin Admit Date: MR #: [id number] : 1990 Physicians: Physician Judy (Family); Brie Moreno MD (Referring) Consult Ordered By: Franny Sims PA-C Assessment and Plan: Other Elevated LFTs Assessment & Plan 29yo F with PMHx IVDU and hepatitis C who presents from [facility] with elevated LFTs and imaging c/f [...] IVDU and hepatitis C who presents from [facility] with elevated LFTs and imaging c/f [...] file Gets together: Not on file Attends sabianism service: Not on file Active member of [...] Transcriptions 06/14/19 10:18 AM Invalid input(s): CO2, LABALBRUNA Hare CNP [facility] (for staff [...] reviewed, including documentation from previous hospitalizations and field sales consultant recommendations as summarized below. Briefly, [...] and content) ED PROVIDER NOTE [facility] EMERGENCY DEPARTMENT NAME: Tia Levin AGE: 29 y.o. : 1990 VISIT DATE: 08/13/2019 CSN: [id number] PCP: Physician No Chief Complaint Patient presents with Drug Overdose This is a 29-year-old female brought to the ER via EMS for evaluation. Time my exam patient is alert and oriented. She states she was in the [place] parking lot bent over in her car [...] file Gets together: Not on file Attends sabianism service: Not on file Active member of [...] nursing note reviewed. Exam conducted with a hydro plant operator present (Nurses at the bedside). Constitutional: [...] for helping people with drug addiction. [address] [facility] [place] [address] Contact information for after-discharge care Follow-up information has not been specified. Adia Dillon CNP 08/13/191948 Pt brought in by [facility], states she was found by [facility] [...] section and content) DATE CREATED AUTHOR 08/21/2019 Emilie Delfina [facility] DATE CREATED AUTHOR AUTHOR'S ORGANIZ ATION 02/15/2021 [facility] DATE CREATED AUTHOR AUTHOR'S ORGANIZ ATION 05/18/2021 [facility] DATE CREATED AUTHOR AUTHOR'S ORGANIZ ATION 07/02/2021 [facility] DATE CREATED AUTHOR AUTHOR'S ORGANIZ ATION 07/09/2021 [facility] DATE CREATED AUTHOR AUTHOR'S ORGANIZ ATION 07/05/2022 [facility] DATE CREATED AUTHOR AUTHOR'S ORGANIZ ATION 05/14/2023 [facility] DATE CREATED AUTHOR AUTHOR'S ORGANIZ ATION 10/07/2023 [facility] DATE CREATED AUTHOR AUTHOR'S ORGANIZ ATION 12/09/2023 [facility] EPIC DATE CREATED AUTHOR AUTHOR'S ORGANIZ ATION 12/10/2023 [facility] Ordered Prescriptions (unrec ognized section and [...] ONCE, 1 dose, On Tue10/12/21 at 1830 1838 (Given - Provid er: Zayda Beck RN) [...]
Care Teams (unrecognized sec tion and content) Subsorter Relationship Specialty Start Date End Date No, Physician [facility] PCP - General 12/29/20 Germania Galaviz, RECREATIONAL DIRECTOR [address] [place] [address] Nurse Practitioner Obstetrics/Gynecology 11/01/19 Subsorter Relationship Specialty Start Date End Date No, Physician [facility] PCP - General 12/29/20 Germania Galaviz, RECREATIONAL DIRECTOR [address] [place] [address] Nurse Practitioner Obstetrics/Gynecology 11/01/19 Subsorter Relationship Specialty Start Date End Date Farhat Vang MD [address] [address] PCP - General Family Medicine 04/16/21 Germania Galaviz, RECREATIONAL DIRECTOR [address] [place] [address] Nurse Practitioner Obstetrics/Gynecology 11/01/19 Radha Patnoja MD [address] [place] [address] Salesperson [employer] Obstetrics/Gynecology 02/02/21 Yvonne Santos MD [address] [place] [address] Salesperson [employer] Obstetrics/Gynecology 02/02/21 Regla Dias, [facility] [address] [place] [address] [employer] Worker Obstetrics/Gynecology 02/02/21 Subsorter Relationship Specialty Start Date End Date Farhat Vang MD [address] [address] PCP - General Family Medicine 04/16/21 Germania Galaviz, RECREATIONAL DIRECTOR [address] [place] [address] Nurse Practitioner Obstetrics/Gynecology 11/01/19 Radha Pantoja MD [address] [address] [employer]person [employer] Obstetrics/Gynecology 02/02/21 Yvonne Santos MD [address] [place] [address] Salesperson [employer] Obstetrics/Gynecology 02/02/21 Regla Dias CN [address] [facility] [place] [address] [employer] Worker Obstetrics/Gynecology 02/02/21 Subsorter Relationship Specialty Start Date End Date Farhat Vang MD [address] [facility] [address] [place] [address] PCP - General Family Medicine 04/16/21 Germania Galaviz CNP [address] [place] [address] Nurse Practitioner Obstetrics/Gynecology 11/01/19 Radha Pantoja MD [address] [place] [address] [employer]person [employer] Obstetrics/Gynecology 02/02/21 Yvonne Santos MD [address] [facility] [place] [address] Salesperson [employer] Obstetrics/Gynecology 02/02/21 Regla Dias CN [address] [place] [address] [employer] Worker Obstetrics/Gynecology 02/02/21 Subsorter Relationship Specialty Start Date End Date Linda Sheppard, DO [address] [facility] [place] [address] PCP - General Family Medicine 09/04/22 Subsorter Relationship Specialty Start Date End Date Linda Sheppard, DO [address] [place] [address] PCP - [facility] 09/04/22 Subsorter Relationship Specialty Start Date End Date Linda Sheppard, DO [address] [place] [address] PCP - General Family [facility] 09/04/22 FOR RECORDS PERTAINING TO PATIENTS WHO [...] BE BASED ON THE PRIMARY CLINICAL RECORDS. [facility] [facility] provides no warranty or guarantee of the accuracy or completeness of information in this document.
[2023-12-13 17:09] VITALS: BP 81/44; PULSE 99
[2023-12-13 17:10] VITALS: BP 104/72; PULSE 97
--- NOTE | 2023-12-13 18:06 | US_ITS ---
[address] [address] Patient Name: TIA MONROE MRN: [id number] date: 1990 Sex: F Assigned Patient Location: US Current Patient Location: Accession/Order Number: [id number] Exam Date: 12/13/2023 18:20 Report Date: 12/14/2023 04:21 At the request of: DAWRIN MONROY Procedure: US OB BPP w non-stress EXAMINATION: US OB BPP w non-stress, US OB BPP w non-stress HISTORY:MONOCHORIONIC DIAMNIOTIC TWIN O20.039 COMPARISON: Ultrasound OB biophysical 12/13/2023 TECHNIQUE: Ultrasound biophysical profile was performed in the radiology department. BREATHING MOVEMENTS: 2 / 2 GROSS BODY MOVEMENTS: 2 / 2 TONE: 2 / 2 QUALITATIVE AMNIOTIC FLUID VOLUME: 2 / 2 PRESENTATION: Cephalic / Transverse HEART RATE: 151 bpm / 134 bpm AMNIOTIC FLUID VOLUME: 10.5 x 4.9 cm / 3.5 x 5.3 cm GESTATIONAL AGE: 36 weeks 5 days US/US OB BPP w non-stress IMPRESSION: 1. Live twin intrauterine . 2. Total biophysical profile score: Baby A: 8 / Baby B: 8 Electronically authenticated by: BETTYE DANIELS Date: 12/14/2023 04:21
--- NOTE | 2023-12-13 18:06 | US_ITS ---
[address] [address] Patient Name: TIA MONROE MRN: [id number] date: 1990 Sex: F Assigned Patient Location: US Current Patient Location: Accession/Order Number: [id number] Exam Date: 12/13/2023 18:20 Report Date: 12/14/2023 04:21 At the request of: DARWIN MONROY Procedure: US OB BPP w non-stress EXAMINATION: US OB BPP w non-stress, US OB BPP w non-stress HISTORY:MONOCHORIONIC DIAMNIOTIC TWIN O20.039 COMPARISON: Ultrasound OB biophysical 12/13/2023 TECHNIQUE: Ultrasound biophysical profile was performed in the radiology department. BREATHING MOVEMENTS: 2 / 2 GROSS BODY MOVEMENTS: 2 / 2 TONE: 2 / 2 QUALITATIVE AMNIOTIC FLUID VOLUME: 2 / 2 PRESENTATION: Cephalic / Transverse HEART RATE: 151 bpm / 134 bpm AMNIOTIC FLUID VOLUME: 10.5 x 4.9 cm / 3.5 x 5.3 cm GESTATIONAL AGE: 36 weeks 5 days US/US OB BPP w non-stress IMPRESSION: 1. Live twin intrauterine . 2. Total biophysical profile score: Baby A: 8 / Baby B: 8 Electronically authenticated by: BETTYE DANIELS Date: 12/14/2023 04:21
== END 2023-12-13 19:01 | disposition home or self-care (01) ==
LOC: US 07:00 → FBC 16:53
PROVIDERS: Visit Provider Obstetrics & Gynecology
DX: O30.033 Twin pregnancy, monochorionic/diamniotic, third trimester (principal); Z3A.36 36 weeks gestation of pregnancy
CPT/HCPCS: 76818

== ENCOUNTER 2023-12-15 05:30 | Inpatient (IN) | payer BC, SELFPAY ==
[2023-12-15] VITALS (36 sets, daily range): BP systolic 84–122; BP diastolic 43–74; PULSE 89–108; TEMP 36.1–36.8; O2SAT 92–100
[2023-12-15] MEDS: 0.9 % SODIUM CHLORIDE 1,000 ML 1000 ML IV (06:05)
--- NOTE | 2023-12-15 06:12 | PC.NURSE ---
IVs started after multiple attempts. Pt has a saline lock in the rt lateral upper forearm and the rt medial upper forearm, both with 20g cathlons. Unable to advance later cathlon fully but flushes will and blood drawn from this site.
--- OUTSIDE RECORDS SUMMARY | 2023-12-15 06:12 | XMS_ITS | CCD ---
Author Organization 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 Name Role Phone Unavailable Primary Care Provider [...] Primary Care Provider Germania Funes CNP Unavailable [phone] Roslyn Stevenson MD Unavailable Radha Pnatoja MD Unavailable Yvonne Santos MD Unavailable Larissa [...] Care Unavailable YVONNE SANTOS LSelwyn Admitting Unavailable Radha Pantoja MD Unavailable Yvonne Santos MD Unavailable [phone] Larissa COTTON, Regla Corina Unavailable Ciera PEDRAZA, [...] Unavaila ble ZAPBRIE SALINAS Attending Unavailabl e PAPADOZACHARY, FARHAT PASTOR Primary Care Unavaila ble Unavailable Primary Care Provider Unavailannika e Linda Sheppard Primary Care Physician JULIA ., DR GRANADOS Consulting Unavailable JULIA ., DR GRANADOS Admitting Unavailable JULIA ., DR GRANADOS Attending Unavailable JULIA ., DR GRANADOS Consulting Unavailable JULIA ., DR GRANADOS Admitting Unavailable JULIA ., DR GRANADOS Attending Unavailable JULIA ., DR GRANADOS Admitting Unavailable JULIA ., DR GRANADOS Attending Unavailable JULIA ., DR GRANADOS Attending Unavailable JULIA ., DR GRANADOS Consulting Unavailable JULIA ., DR GRANADOS Admitting Unavailable BETTYE DANIELS Consulting Unavailable Linda Sheppard DO Primary Care Provider Jonathan Martinez Attending Unavailable Zac Fields Attending Unavailable Linda Sheppard Referring Unavailable Todd Smart Attending Unavailable MD Todd Smart Admitting Unavailable LINDA SHEPPARD Primary Care Unavailable CHET BERUMEN Attending Unavailable LINDA SHEPPARD Primary Care Unavailable CHET BERUMEN Attending Unavailable MARK DUMONT Referring Unavailable LINDA SHEPPARD Primary Care Unavailable ARCHIE DUMONTY RAYRAY Referring Unavailable LINDA SHEPPARD Primary Care Unavailable LINDA SHEPPARD Primary Care Unavailable NICHOLAS ROGER Attending Unavailable JULIA, MARK Attending Unavailable JULIAARCHIEY Attending Unavailable JULIAARCHIEY Attending Unavailable JULIAARCHIEY Attending Unavailable JULIAARCHIEY Attending Unavailable JULIA, MARK Attending Unavailable JULIA, MARK Attending Unavailable JULIA, MARK Attending Unavailable BLAKE KAUFFMAN Referring Unavailable SILVER LINDA Vijaya Primary Care Unavailable VIOLET JUAREZ Admitting Unavailable VIOLET JUAREZ Attending Unavailable LINDA SHEPPARD Primary Care Unavailable VIOLET JUAREZ Consulting Unavailable JOE JARAMILLO Attending Unavailable LINDA SHEPPARD Primary Care Unavailable Unavailable Primary Care Provider Unavailannika e Medications Current Medications Medication Drug Class(es) Dates [...] day(s), # 14 tab(s), Refills(s) 0, Pharmacy: [facility] #16, 160, cm, 05/11/23 21:53:00 EST, Height/Length [...] aspirin 81 mg delayed release oral tablet (4 sources) Platelet Aggregation Inhibitor, Nonsteroidal Anti-inflammatory Drug take 1 tablet by mouth once daily aspirin 81 MG EC tablet Take 1 tablet by mouth Daily Active bacitracin 0.5 unt/mg topical ointment (1 [...] oral solution (2 sources) alpha-Adrenergic Agonist, Uncompetitive W-fefcif-X-aspartate Receptor Antagonist, Sigma-1 Agonist Start: End: take 5 mL by mouth four times daily as needed for cough brompheniramine-pse udoephedrine-DM (BROMFED DM) 2-30-10 MG/5ML syrup Take 5 mLs by mouth 4 times daily as needed for Congestion or Cough 240 mL 1 10/12/2021 11/11/2021 Active Start: 11-07-2020 End: 11-12-2020 take 5 mL by mouth three times daily as needed for cough pgywpeqzybbigvt-qowcqypmiydqfjz-ZN 2-30- 10 MG/5ML syrup Take 5 mLs [...] 0, (swish and spit; do not swallow), [facility] #16, 160, cm, 05/11/23 21:53:00 EST, [...] Active Dextromethorphan / guaiFENesin (2 sources) Uncompetitive G-mlaykw-R-asparta te Receptor Antagonist, Sigma-1 Agonist End: 06-24-2020 [...] by mouth daily . 0 05/23/2020 Active hydrocortisone 25 mg/ml rectal cream (3 sources) Corticosteroid Start: 12-05-2023 hydrocortisone (Anusol-HC) 2.5 % rectal cream Indications: Hemorrhoids, unspecified hemorrhoid type Insert into the rectum 2 (two) times a day 30 g 12/05/2023 Active hydrOXYzine hydrochloride 25 mg oral tablet [...] omeprazole 20 mg delayed release oral capsule (4 sources) Proton Pump Inhibitor Start: 09-06-2023 take 1 capsule by mouth at bedtime omeprazole (PriLOSEC) [address] capsule Indications: Gastroesophageal Reflux Disease , Heartburn Take 1 capsule (20 mg) by mouth at bedtime Do not crush or chew. 30 capsule 3 09/06/2023 Active ondansetron 4 mg disintegrating oral [...] day(s), # 15 tab(s), Refills(s) 0, Pharmacy: [facility] #16, 160, cm, 05/13/23 11:33:00 EST, Height/Length [...] TABLET BY MOUTH DAILY 0 04/29/2021 Active MV-Min-Fe Fum-FA-DHA ( 1 PO) (3 sources) MV-Min- Fe Fum-FA-DHA ( 1 PO) Take 1 each by mouth Daily Active Vit-Fe Fumarate-FA ( VITAMINS PO) (4 [...] for Pain. 0 05/10/2023 Discontinued (LIST CLEANUP) [id number] 200 actuat albuterol 0.09 mg/actuat metered dose [...] 4 hours PRN, indigestion, Starting [facility] 06/14/19 at 0831 azithromycin 250 mg [...] PRN, constipation, For constipation., Starting [facility] 06/14/19 at 0831 naloxone (NARCAN) injection [...] [Anxiety disorder, unspecified] Onset: 06-25-2010 06-25-2010 Chronic Contraceptive and procreative management (20 sources) Contraception ; Translations: [Patient encounter status] Onset: 12-20-2016 Resolved: 01-02-2020 12-20-2016 Episodic Female infertility (2 sources) Female infertility [...] ] Onset: 10-05-2023 Episodic Residual codes; unclassified (2 sources) Gestation period, 35 weeks; Translations: [35 weeks gestation of ] 12-07-2023 Episodic Skin and subcutaneous tissue infections (1 [...] Translations: [Accidental overdose of heroin, initial encounter ([facility])] Episodic Substance-related disorders (1 source) Opioid [...] l admission (14 sources) Admission statuses; 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] Onset: 05-18-2019 05-18-2019 Episodic Allergic reactions (1 source) Contact dermatitis due to poison arabella; Translations: [Poison arabella] Episodic Diabetes or abnormal glucose tolerance complicating [...] 12-20-2016 Episodic Other and delivery including normal (10 sources) Normal ; Translations: [Encounter for supervision [...] ] Onset: 08-28-2020 Resolved: 12-29-2020 12-29-2020 Episodic Residual codes; unclassified (3 sources) Gestation period, 11 weeks; Translations: [11 weeks gestation of ] Onset: 06-21-2023 06-21-2023 Episodic Sexually transmitted infections (not HIV or [...] Test Name Value Interpretation Reference Range Facility Urinalysis macro (dipstick) panel (U)on 12-07-2023 Bilirubin, UA Negative Negative - 4(70) +++ mg/dL [facility] Blood, UA Negative Negative - 50 Allen/mcL [facility] Clarity, UA Clear [facility] Color, UA Yellow [facility] Glucose, UA Negative Negative - 2000(110) ++++ mg/dL [facility] Interpretation and review of laboratory results Normal [facility] Ketones, UA Negative Negative - 160(16) ++++ mg/dL [facility] Leukocytes, UA Positive Negative - 500+++ Honey/mcL [facility] Nitrite, UA Negative Negative - Positive [facility] pH, UA 6.5 5 - 9 [facility] Protein, UA Negative Negative - 2000(20) ++++ mg/dL [facility] Spec Grav, UA 1.020 1 - 1.03 [facility] Urobilinogen, UA 1.0 0.2 - 12 mg/dL [facility] APTTon 10-05-2023 aPTT Coag (Bld) [Time] 29.8 s Normal 23.9-33.8 [place] Comment on above: Result Comment: IV Heparin Therapy Range: 62.0-94.0 Performed By: #### P T, PTT, BMP, CDP, TROPI #### [facility] [address] [place] [address] Car Parker: Guero Sandoval MD Basic Metabolic Profon 10-04 Anion gap [Moles/Vol] 13 mmol/L Normal 9-17 [facility] Comment on above: Performed By: #### P T, PTT, BMP, CDP, TROPI #### [facility] [address] [place] [address] Car Parker: Guero Sandoval MD BUN/CRE Ratio Result cannot be calculated, Creatinine below linear range. Normal - [facility] Comment on above: Performed By: #### P T, PTT, BMP, CDP, TROPI #### [facility] [address] [place] [address] Car Parker: Guero Sandoval MD Calcium [Mass/Vol] 8.7 mg/dL Normal 8.6-10.4 [facility] Comment on above: Performed By: #### P T, PTT, BMP, CDP, TROPI #### [facility] [address] [place] [address] Car Parker: Guero Sandoval MD Chloride [Moles/Vol] 105 mmol/L Normal 98-107 [facility] Comment on above: Performed By: #### P T, PTT, BMP, CDP, TROPI #### [facility] [address] [place], [place] [phone] Car Parker: Guero Sandoval MD CO2 [Moles/Vol] 18 mmol/L Low 20-31 [facility] Comment on above: Performed By: #### P T, PTT, BMP, CDP, TROPI #### [facility] [address] [place], [place] [phone] Car Parker: Guero Sandoval MD Creatinine [Mass/Vol] mg/dL Low 0.5-0.9 [facility] Comment on above: Performed By: #### P T, PTT, BMP, CDP, TROPI #### [facility] [address] [place] [address] Car Parker: Guero Sandoval MD eGFR Can not be calculated Normal >60 [facility] Comment on above: Result Comment: These results [...] PTT, BMP, CDP, TROPI #### [facility] [address] [place], [place] [phone] Car Parker: Guero Sandoval MD Glucose [Mass/Vol] 111 mg/dL High 70-99 [facility] Comment on above: Performed By: #### P T, PTT, BMP, CDP, TROPI #### [facility] [address] [place], [place] [phone] Car Parker: Guero Sandoval MD Potassium [Moles/Vol] 3.8 mmol/L Normal 3.7-5.3 [facility] Comment on above: Performed By: #### P T, PTT, BMP, CDP, TROPI #### [facility] [address] [place] [address] Car Parker: Guero Sandoval MD Sodium [Moles/Vol] 136 mmol/L Normal 135-144 [facility] Comment on above: Performed By: #### P T, PTT, BMP, CDP, TROPI #### [facility] [address] [place] [address] Car Parker: Guero Sandoval MD Urea nitrogen [Mass/Vol] 6 mg/dL Normal 6-20 [facility] Comment on above: Performed By: #### P T, PTT, BMP, CDP, TROPI #### [facility] [address] [place] [address] Car Parker: Guero Sandoval MD Brain Natri. Peptideon 10-04 Pro-BNP <36 Normal 0-300 [facility] Comment on above: Result Comment: An a ge-independent cutoff point of 300 pg/ml has a 98% negative predictive value excluding acute heart failure. Performed By: #### B EQUIPMENT SPECIALIST, TROPI #### [id number] [place] [address] Car Parker: Thor Hernández MD CBC with Diffon 10-05-2023 Abs. Basophil 0.04 k/uL Normal 0.00-0.20 [facility] Comment on above: Performed By: #### P T, PTT, BMP, CDP, TROPI #### [facility] [address] [place] [address] Car Parker: Guero Sandoval MD Abs.Imm.Granulocyte 0.16 k/uL Normal 0.00-0.30 [facility] Comment on above: Performed By: #### P T, PTT, BMP, CDP, TROPI #### [facility] [address] [place] [address] Car Parker: Guero Sandoval MD Abs.Neutrophil (Seg) 8.05 k/uL High 2.5-7.0 [facility] Comment on above: Performed By: #### P T, PTT, BMP, CDP, TROPI #### [facility] [address] [place] [phone] Car Parker: Guero Sandoval MD Basophils/100 WBC (Bld) 0 % Normal 0-2 [facility] Comment on above: Performed By: #### P T, PTT, BMP, CDP, TROPI #### [facility] [address] [place] [phone] Car Parker: Guero Sandoval MD Eosinophils (Bld) [#/Vol] 0.08 10*3/uL Normal 0.00-0.4 0 [facility] Comment on above: Performed By: #### P T, PTT, BMP, CDP, TROPI #### [facility] [address] [place] [phone] Car Parker: Guero Sandoval MD Eosinophils/100 WBC (Bld) 1 % Normal 0-5 [facility] Comment on above: Performed By: #### P T, PTT, BMP, CDP, TROPI #### [facility] [address] [place] [phone] Car Parker: Guero Sandoval MD Erythrocyte distribution width (RBC) [Ratio] 13.1 % Normal 12.1-15.2 [facility] Comment on above: Performed By: #### P T, PTT, BMP, CDP, TROPI #### [facility] [address] [place] [phone] Car Parker: Guero Sandoval MD Hematocrit (Bld) [Volume fraction] 28.8 % Low 36.0-46.0 [facility] Comment on above: Performed By: #### P T, PTT, BMP, CDP, TROPI #### [facility] [address] [place] [address] Car Parker: Guero Sandoval MD Hemoglobin (Bld) [Mass/Vol] 9.8 g/dL Low 12.0-16.0 [facility] Comment on above: Performed By: #### P T, PTT, BMP, CDP, TROPI #### [facility] [address] [place] [phone] Car Parker: Guero Sandoval MD Immature granulocytes/100 WBC (Bld) 2 % Normal 0-5 [facility] Comment on above: Performed By: #### P T, PTT, BMP, CDP, TROPI #### [facility] [address] [place] [address] Car Parker: Guero Sandoval MD Lymphocytes (Bld) [#/Vol] 1.61 10*3/uL Normal 1.00-4.8 0 [facility] Comment on above: Performed By: #### P T, PTT, BMP, CDP, TROPI #### [facility] [address] [place] [address] Car Parker: Guero Sandoval MD Lymphocytes/100 WBC (Bld) 15 % Normal 15-40 [facility] Comment on above: Performed By: #### P T, PTT, BMP, CDP, TROPI #### [facility] [address] [place] [address] Car Parker: Guero Sandoval MD MCH (RBC) [Entitic mass] 27.7 pg Normal 26.0-34.0 [facility] Comment on above: Performed By: #### P T, PTT, BMP, CDP, TROPI #### [facility] [address] [place] [address] Car Parker: Guero Sandoval MD MCHC (RBC) [Mass/Vol] 34.0 g/dL Normal 31.0-37.0 [facility] Comment on above: Performed By: #### P T, PTT, BMP, CDP, TROPI #### [facility] [address] [place] [address] Car Parker: Guero Sandoval MD MCV (RBC) [Entitic vol] 81.4 fL Normal 80.0-100.0 [facility] Comment on above: Performed By: #### P T, PTT, BMP, CDP, TROPI #### [facility] [address] [place] [phone] Car Parker: Guero Sandoval MD Monocytes (Bld) [#/Vol] 0.77 10*3/uL Normal 0.00-1.00 [facility] Comment on above: Performed By: #### P T, PTT, BMP, CDP, TROPI #### [facility] [address] [place] [address] Car Parker: Guero Sandoval MD Monocytes/100 WBC (Bld) 7 % Normal 4-8 [facility] Comment on above: Performed By: #### P T, PTT, BMP, CDP, TROPI #### [facility] [address] [place] [address] Car Parker: Guero Sandoval MD Neutrophil (Seg) 75 % Normal 47-75 [facility] Comment on above: Performed By: #### P T, PTT, BMP, CDP, TROPI #### [facility] [address] [place] [address] Car Parker: Guero Sandoval MD Platelet mean volume (Bld) [Entitic vol] 10.2 fL Normal 6.0-12.0 [facility] Comment on above: Performed By: #### P T, PTT, BMP, CDP, TROPI #### [facility] [address] [place] [address] Car Parker: Guero Sandoval MD Platelets (Bld) [#/Vol] 275 10*3/uL Normal 140-450 [facility] Comment on above: Performed By: #### P T, PTT, BMP, CDP, TROPI #### [facility] [address] [place] [address] [phone] Car Parker: Guero Sandoval MD RBC (Bld) [#/Vol] 3.54 10*6/uL Low 4.00-5.20 [facility] Comment on above: Performed By: #### P T, PTT, BMP, CDP, TROPI #### [facility] [address] [place] [address] [phone] Car Parker: Guero Sandoval MD WBC (Bld) [#/Vol] 10.7 10*3/uL Normal 3.5-11.0 [facility] Comment on above: Performed By: #### P T, PTT, BMP, CDP, TROPI #### [facility] [address] [place] [address] Car Parker: Guero Sandoval MD CT CHEST PULMONARY EMBOLISM [...] Carlos Petersen MD 10/05/23 Final result Normal [facility] Liver Profileon 10-05-2023 Albumin [Mass/Vol] 3.0 g/dL Low 3.5-5.2 [facility] Comment on above: Performed By: #### L IVP #### [facility] [address] [place] [address] Car Parker: Guero Sandoval MD Alkaline Phos 74 U/L Normal 35-104 [facility] Comment on above: Performed By: #### L IVP #### [facility] [address] [place], [place] [phone] Car Parker: Guero Sandoval MD ALT [Catalytic activity/Vol] U/L Low 5-33 [facility] Comment on above: Performed By: #### L IVP #### [facility] [address] [place], [place] [phone] Car Parker: Guero Sandoval MD AST [Catalytic activity/Vol] 9 U/L Normal <32 [facility] Comment on above: Performed By: #### L IVP #### [facility] [address] [place], [place] [phone] Car Parker: Guero Sandoval MD Bilirubin [Mass/Vol] 0.3 mg/dL Normal 0.3-1.2 [facility] Comment on above: Performed By: #### L IVP #### [facility] [address] [place], [place] [phone] Car Parker: Guero Sandoval MD Bilirubin, Indirect Can not be calculated Normal 0.0-1.0 [facility] Comment on above: Performed By: #### L IVP #### [facility] [address] [place], [place] [phone] Car Parker: Guero Sandoval MD Bilirubin.indirect [Mass/Vol] mg/dL Normal <0.3 [facility] Comment on above: Performed By: #### L IVP #### [facility] [address] [place] [phone] Car Parker: Guero Sandoval MD Protein [Mass/Vol] 5.9 g/dL Low 6.4-8.3 [facility] Comment on above: Performed By: #### L IVP #### [facility] [address] [place] [phone] Car Parker: Guero Sandoval MD PTon 10-05-2023 INR Coag (PPP) [Relative time] 1.0 {INR} Normal [facility] Comment on above: Result Comment: Therapeutic Range: Moderate Anticoagulant Intensity: INR = 2.0-3.0 High Anticoagulant Intensity: INR = 2.5-3.5 Performed By: #### P T, PTT, BMP, CDP, TROPI #### [facility] [address] [place] [address] Car Parker: Guero Sandoval MD PT Coag (PPP) [Time] 13.6 s Normal 11.5-14.2 [facility] Comment on above: Performed By: #### P T, PTT, BMP, CDP, TROPI #### [facility] [address] [place], [place] [phone] Car Parker: Gureo Sandoval MD Troponinon 10-05-2023 Troponin, High Sens <6 Normal 0-14 [facility] Comment on above: Result Comment: High Sensitivity Troponin values cannot be compared with other Troponin methodologies. Performed By: #### B EQUIPMENT SPECIALIST, TROPI #### [address] [address] Car Parker: Thor Hernández MD Troponin, High Sens <6 Normal 0-14 [facility] Comment on above: Result Comment: High Sensitivity Troponin values cannot be compared with other Troponin methodologies. Performed By: #### P T, PTT, BMP, CDP, TROPI #### [facility] [address] [place], [place] [phone] Car Parker: Guero Sandoval MD UA w/Reflex Cultureon 2023 Bilirubin, SemiQt,Ur Negative Normal NEG [facility] Comment on above: Performed By: #### U MICAO, UAX #### [address] [address] Car Parker: Thor Hernándze MD Blood, Urine Negative Normal NEG [facility] Comment on above: Performed By: #### U MICAO, UAX #### [address] [address] Car Parker: Thor Hernández MD Clarity (U) Cloudy Abnormal CLEAR [facility] Comment on above: Performed By: #### U MICAO, UAX #### [address] [address] Car Parker: Thor Hernández MD Color (U) Yellow Normal YEL [facility] Comment on above: Performed By: #### U MICAO, UAX #### [address] [phone] Car Parker: Thor Hernández MD Glucose Ql (U) 1+ mg/dL Abnormal NEG [facility] Comment on above: Performed By: #### U MICAO, UAX #### [facility] [address] [place] [phone] Car Parker: Thor Hernández MD Ketones Ql (U) TRACE Abnormal NEG [facility] Comment on above: Performed By: #### U MICAO, UAX #### [facility] [address] [place] [address] Car Parker: Thor Hernández MD Leukocyte esterase Test strip Ql (U) Negative Normal NEG [facility] Comment on above: Performed By: #### U MICAO, UAX #### [facility] [employer] [address] [place] [address] Car Parker: Thor Hernández MD Nitrite,Ur Negative Normal NEG [facility] Comment on above: Performed By: #### U MICAO, UAX #### [facility] [employer] [address] [place] [address] Car Parker: Thor Hernández MD PH,Ur 6.0 Normal 5.0-8.0 [facility] Comment on above: Performed By: #### U MICAO, UAX #### [facility] [employer] [address] [place] [address] Car Parker: Thor Hernández MD Protein Ql (U) TRACE Abnormal NEG [facility] Comment on above: Performed By: #### U MICAO, UAX #### [facility] [employer] [address] [place] [phone] Car Parker: Thor Hernández MD Spec. [place],Ur 1.028 Normal 1.005-1.030 [facility] Comment on above: Performed By: #### U MICAO, UAX #### [facility] [employer] [address] [place] [address] Car Parker: Thor Hernández MD Urobilinogen,Ur Normal Normal 0.0-1.0 [facility] Comment on above: Performed By: #### U MICAO, UAX #### [facility] [address] [place] [address] Car Parker: Thor Hernández MD Urinalysis,Microon 4 Bacteria MODERATE Abnormal NONE [facility] Comment on above: Performed By: #### U MICAO, UAX #### [employer] [address] [place] [address] Car Parker: Thor Hernández MD Casts 2 TO 5 HYALINE Normal 0-8 [facility] Comment on above: Result Comment: Refe rence range defined for non-centrifuged specimen. Performed By: #### U MICAO, UAX #### [facility] [employer] [address] [place] [phone] Car Parker: Thor Hernández MD Epithelial cells LM Ql (Urine sed) 20 TO 50 Normal 0-5 [facility] Comment on above: Performed By: #### U MICAO, UAX #### [employer] [address] [place] [address] Car Parker: Thor Hernández MD Urine RBC's 0 TO 2 Normal 0-4 [facility] Comment on above: Result Comment: Refe rence range defined for non-centrifuged specimen. Performed By: #### U MICAO, UAX #### [employer] [address] [place] [address] Car Parker: Thor Hernández MD Urine WBC's 5 TO 10 Normal 0-5 [facility] Comment on above: Performed By: #### U MICAO, UAX #### [employer] [address] [place] [address] Car Parker: Thor Hernández MD AFP, Maternalon 07-28-2023 Determined by Ultrasound Normal [facility] Comment on above: Performed By: #### T SH, FT4, FT3 #### [address] [address] Car Parker: Thor Hernández MD #### AAFPM #### [address] [address] Car Parker: Thor Hernández MD [facility] [address] [place] [address] Car Parker: Tim Vizcarra MD Due Date SEE NOTE Normal [facility] Comment on above: Result Comment: Resu lts for Estimated Due Date: 01 06 24 Performed By: #### T SH, FT4, FT3 #### [address] [address] Car Parker: Thor Hernández MD #### AAFPM #### [address] [address] Car Parker: Thor Hernández MD [address] [phone] Car Parker: Tim Vizcarra MD Family History No Normal [facility] Comment on above: Performed By: #### T SH, FT4, FT3 #### [address] [address] Car Parker: Thor Hernández MD #### AAFPM #### [address] [address] Car Parker: Thor Hernández MD [address] [address] Car Parker: Tim Vizcarra MD Gestat Age (exact) 16 wks, 4 days Normal [facility] Comment on above: Performed By: #### T SH, FT4, FT3 #### [facility] [address] [place] [address] Car Parker: Thor Hernández MD #### AAFPM #### [address] [address] Car Parker: Thor Hernández MD [address] [id number] Car Parker: Tim Vizcarra MD Ins Req Matern Diab No [facility] Comment on above: Performed By: #### T SH, FT4, FT3 #### [address] [address] Car Parker: Thor Hernández MD #### AAFPM #### [address] [address] Car Parker: Thor Hernández MD [address] [address] Car Parker: Tim Vizcarra MD Interpretation Screen Neg [facility] Comment on above: Result Comment: (NOT E) INTERPRETATION: SCREEN NEGATIVE for open spina bifida Neural Tube Defects (NTD) Negative Pre-Test Post-Test Cutoff Neural Tube Defects Risks 1:452 1:3230 1:103 Comments: The risk of an open neural tube defect is less than the twin screening cut-off. This test was developed and its performance characteristics determined by [employer]. It has not been cleared or approved by the [place] Food and Drug Administration. This test was performed in a CLIA certified laboratory and is intended for clinical purposes. Performed By: #### T SH, FT4, FT3 #### [address] [address] Car Parker: Thor Hernández MD #### AAFPM #### [address] [address] Car Parker: Thor Hernández MD [address] [phone] Car Parker: Tim Vizcarra MD [age] [facility] Comment on above: Performed By: #### T SH, FT4, FT3 #### [facility] [address] [place] [address] Car Parker: Thor Hernández MD #### AAFPM #### [facility] [address] [place] [address] Car Parker: Thor Hernández MD [facility] [address] [place] [address] Car Parker: Tim Vizcarra MD Maternal Race Nonblack [facility] Comment on above: Performed By: #### T SH, FT4, FT3 #### [facility] [address] [address] Car Parker: Thor Hernández MD #### AAFPM #### [address] [address] Car Parker: Thor Hernández MD [address] [phone] Car Parker: Tim Vizcarra MD Maternal Weight 239.0 lbs. [facility] Comment on above: Performed By: #### T SH, FT4, FT3 #### [address] [address] Car Parker: Thor Hernández MD #### AAFPM #### [address] [address] Car Parker: Thor Hernández MD [facility] [address] [place], [place] [phone] Car Parker: Tim Vizcarra MD MoM for AFP 1.71 [facility] Comment on above: Performed By: #### T SH, FT4, FT3 #### [facility] [address] [place] [address] Car Parker: Thor Hernández MD #### AAFPM #### [facility] [address] [place] [address] Car Parker: Thor Hernández MD [address] [address] Car Parker: Tim Vizcarra MD Number of Fetuses Twins Normal [facility] Comment on above: Performed By: #### T SH, FT4, FT3 #### [facility] [address] [place] [address] Car Parker: Thor Hernández MD #### AAFPM #### [facility] [address] [place] [address] Car Parker: Thor Hernández MD [address] [address] Car Parker: Tim Vizcarra MD Patient's AFP 46 ng/mL Normal [facility] Comment on above: Performed By: #### T SH, FT4, FT3 #### [facility] [address] [place] [address] Car Parker: Thor Hernández MD #### AAFPM #### [facility] [address] [place] [address] Car Parker: Thor Hernández MD [address] [address] Car Parker: Tim Vizcarra MD Smoking Unknown Normal [facility] Comment on above: Performed By: #### T SH, FT4, FT3 #### [facility] [address] [place] [address] Car Parker: Thor Hernández MD #### AAFPM #### [facility] [address] [place] [address] Car Parker: Thor Hernández MD [address] [address] Car Parker: Tim Vizcarra MD Specimen See Note [facility] Comment on above: Result Comment: (NOT E) Initial sample Performed By: [facility] [address] [place] [address] Business Systems Consultant: Morro Modi MD, PhD CLIA Number: [id number] Performed By: #### T SH, FT4, FT3 #### [address] [address] Car Parker: Thor Hernández MD #### AAFPM #### [address] [address] Car Parker: Thor Hernández MD [address] [address] Car Parker: Tim Vizcarra MD MERGED WITH [facility], [facility] 07-27-2023 Current Smoking INFORMATION NOT PROVIDED [facility] Comment on above: Performed By: #### T SH, FT4, FT3 #### [address] [address] Car Parker: Thor Hernández MD #### AAFPM #### [address] [address] Car Parker: Thor Hernández MD [address] [address] Car Parker: Tim Vizcarra MD [facility] Comment on above: Performed By: #### T SH, FT4, FT3 #### [address] [address] Car Parker: Thor Hernández MD #### AAFPM #### [address] [address] Car Parker: Thor Hernández MD [address] [address] Car Parker: Tim Vizcarra MD Diabetic Negative [facility] Comment on above: Performed By: #### T SH, FT4, FT3 #### [address] [address] Car Parker: Thor Hernández MD #### AAFPM #### [address] [address] Car Parker: Thor Hernández MD [facility] [address] [place] [address] Car Parker: Tim Vizcarra MD [employer] INFORMATION NOT PROVIDED [facility] Comment on above: Performed By: #### T SH, FT4, FT3 #### [address] [address] Car Parker: Thor Hernández MD #### AAFPM #### [address] [address] Car Parker: Thor Hernández MD [address] [address] Car Parker: Tim Vizcarra MD Estimated Due Date 01/06/2024 [facility] Comment on above: Performed By: #### T SH, FT4, FT3 #### [address] [address] Car Parker: Thor Hernández MD #### AAFPM #### [address] [address] Car Parker: Thor Hernández MD [facility] [address] [place] [address] Car Parker: Tim Vizcarra MD Family History Negative [facility] Comment on above: Performed By: #### T SH, FT4, FT3 #### [address] [address] Car Parker: Thor Hernández MD #### AAFPM #### [facility] [address] [place] [address] Car Parker: Thor Hernández MD [address] [phone] Car Parker: Tim Vizcarra MD In Vitro Fertalizat INFORMATION NOT PROVIDED [facility] Comment on above: Performed By: #### T SH, FT4, FT3 #### [facility] [address] [place] [address] Car Parker: Thor Hernández MD #### AAFPM #### [facility] [address] [place] [address] Car Parker: Thor Hernández MD [address] [address] Car Parker: Tim Vizcarra MD LMP date 2023 [facility] Comment on above: Performed By: #### T SH, FT4, FT3 #### [facility] [address] [place] [address] Car Parker: Thor Hernández MD #### AAFPM #### [facility] [address] [place] [address] Car Parker: Thor Hernández MD [address] [address] Car Parker: Tim Vizcarra MD Maternal date 1990 [facility] Comment on above: Performed By: #### T SH, FT4, FT3 #### [facility] [address] [place] [address] Car Parker: Thor Hernández MD #### AAFPM #### [facility] [address] [place] [address] Car Parker: Thor Hernández MD [address] [address] Car Parker: Tim Vizcarra MD Maternal Weight 239 [facility] Comment on above: Performed By: #### T SH, FT4, FT3 #### [facility] [address] [address] Car Parker: Thor Hernández MD #### AAFPM #### [address] [address] Car Parker: Thor Hernández MD [facility] [address] [place] [address] Car Parker: Tim Vizcarra MD Monochorionic Twins Positive [facility] Comment on above: Performed By: #### T SH, FT4, FT3 #### [address] [address] Car Parker: Thor Hernández MD #### AAFPM #### [address] [address] Car Parker: Thor Hernández MD [address] [phone] Car Parker: Tim Vizcarra MD Patient Weight Units LBS Normal [facility] Comment on above: Performed By: #### T SH, FT4, FT3 #### [address] [address] Car Parker: Thor Hernández MD #### AAFPM #### [address] [address] Car Parker: Thor Hernández MD [facility] [address] [place] [address] Car Parker: Tim Vizcarra MD Race (Maternal) [facility] Comment on above: Performed By: #### T SH, FT4, FT3 #### [address] [address] Car Parker: Thor Hernández MD #### AAFPM #### [address] [address] Car Parker: Thor Hernández MD [address] [address] Car Parker: Tim Vizcarra MD Repeat Specimen INFORMATION NOT PROVIDED Normal [facility] Comment on above: Performed By: #### T SH, FT4, FT3 #### [address] [address] Car Parker: Thor Hernández MD #### AAFPM #### [address] [address] Car Parker: Thor Hernández MD [address] [phone] Car Parker: Tim Vizcarra MD Valproic/Carbamazep INFORMATION NOT PROVIDED Normal [facility] Comment on above: Performed By: #### T SH, FT4, FT3 #### [address] [address] Car Parker: Thor Hernández MD #### AAFPM #### [address] [address] Car Parker: Thor Hernández MD [address] [address] Car Parker: Tim Vizcarra MD Thyroxine, Freeon 07-27-2023 Thyroxine, Free 1.0 ng/dL Normal 0.92-1.68 [facility] Comment on above: Performed By: #### T SH, FT4, FT3 #### [address] [address] Car Parker: Thor Hernández MD #### AAFPM #### [address] [address] Car Parker: Thor Hernández MD [facility] [address] [place] [address] Car Parker: Tim Vizcarra MD Protein,Tot,[place] [facility] 2023 Creatinine [Mass/Vol] 273.0 mg/dL High 28.0-217.0 Me [facility] Comment on above: Performed By: #### U RTPRT #### [address] [address] Car Parker: Thor Hernández MD Tot Prot. Conc. 21 mg/dL Normal [facility] Comment on above: Result Comment: No n ormal range established. Performed By: #### U RTPRT #### [address] [address] Car Parker: Thor Hernández MD TP/Cre Ratio 0.08 Normal [facility] Comment on above: Performed By: #### U RTPRT #### [address] [address] Car Parker: Thor Hernández MD T3, Freeon 07-26-2023 Free T3 [Mass/Vol] 3.40 pg/mL Normal 2.00-4.40 [facility] Comment on above: Performed By: #### T SH, FT4, FT3 #### [address] [address] Car Parker: Thor Hernández MD #### AAFPM #### [address] [address] Car Parker: Thor Hernández MD [facility] [address] [place] [address] Car Parker: Tim Vizcarra MD Thyroid Stim. Horm.on 2023 Thyroid Stim. Horm. <0.01 Low 0.27-4.20 [facility] Comment on above: Performed By: #### T SH, FT4, FT3 #### [facility] [address] [place] [address] Car Parker: Thor Hernández MD #### AAFPM #### [facility] [address] [place] [address] Car Parker: Thor Hernández MD [address] [address] Car Parker: Tim Vizcarra MD ED Note-Physicianon 05-14-19 ED [...] see dentistry until she is cleared by [facility]. She does not have an appointment for [facility] to next week. She has no OB [...] day(s), # 15 tab(s), Refills(s) 0, Pharmacy: [facility], 160, cm, 05/13/23 11:33:00 EST, Height/Length [...] Oral, q6hr Follow-up With When Contact Information [employer] [facility] In 3 days 05/16/2023 EDT [address] [place] [address]- Business (1) Additional Instructions: Dentistry follow-up Patient [...] made to ensure accuracy, however, inadvertently computerized patrol agent mistakes may be present. Appropriate healthcare PPE was used in evaluating this patient. Problem List/Past Medical History Ongoing Acute hepatitis C Anxiety Apnea, sleep Dental caries PCOS (polycystic ovarian syndrome) Historical No qualifying data Procedure/Surgical History Delivery. Medications Inpatient ampicillin-sulbacta m additive + Sodium Chloride 0.9% intravenous solution 100 (more content not included)... Normal [facility] Comment on above: Result Comment: Elec tronically Signed By: Greg Stratton PA-C\.br\Date and Time Signed: 05/13/23 12:45 EST\.br\Electronically Co-Signed By: Jonathan Martinez DO\.br\Date and Time Co-Signed: 05/14/23 07:40 EST Consent for Treatmenton Consent for Treatment [id number] EC#1.00TIFF [facility] Discharge Instructionson Discharge Instructions [id number] 53#1.00TIFF [facility] ED Clinical Summaryon 2023 ED Clinical Summary [address] [address] ED Clinical Summary Person Information Name: TIA MONROE Maria Elena/[facility] Age: 33 Years : 1990 Sex: Female Language: Maltese PCP: Linda Sheppard DO Marital Status: Visit [...] 13:02:19 05/13/2023 13:02:19 05/13/2023 13:02:19 ADDRESS: [address] [facility] [id number] PHYS DOC NOTES: MEDICAL INFORMATION: Prescriptions Given: New Medications [facility], [address], [place] [id number], [phone] oxycodone (oxyCODONE 5 mg Tab) 1 Tablets [...] Dental Abscess Follow up: With: Address: When: [address] [address] Business (1) In 3 days 05/16/2023 Comments: Dentistry follow-up DIAGNOSIS: Dental abscess Normal [facility] ED Patient Education Noteon 05-13-2023 ED [...] these instructions at home: Medicines ? Take wesq-sfu-tbhonhd and prescription medicines only as told by [...] mouth. ? (more content not included)... Normal [facility] ED Patient Summaryon 024 ED Patient Summary [place] [address] Patient Discharge Instructions Person Information Name: TIA MONROE Age: 33 Years Arrival Date: 05/13/2023 11:19:01 Discharge Diagnosis: Dental abscess Primary Care Physician: Linda Sheppard DO Provider Information Primary Provider: Jonathan Martinez DO Advanced Snow Ranger:Greg Stratton PA-C The exam and treatment you received in the Emergency Department were for an urgent problem and are not intended as complete care. It is important that you follow up with a doctor, nurse practitioner, or physician?s assistant to the director for ongoing care. If your symptoms become worse or you do not improve as expected and you are unable to reach your usual health care provider, you should return to the Emergency Department. We are available 24 hours a day. TIA MONROE has been given the following list of patient education materials, prescriptions and follow-up instructions: Follow-up Instructions: With: Address: When: [employer] [place] [phone] Business (1) In 3 days 05/16/2023 Comments: Dentistry follow-up In the event that this physician does not participate in your insurance network, please consult with your insurance company to find a nearby participating provider. Patient Education Materials: Dental Abscess A MESSAGE TO ALL PATIENTS REGARDING OPIOIDS PRESCRIPTION OPIOIDS: WHAT YOU NEED TO KNOW Prescription opioids can be used to help relieve kfzvwaxj-wy-tuwacm pain and are often prescribed following a [...] struggling with addiction, tell your health child caregiver private home and ask for guidance or call [facility] National Helpline at 7-389-4 (more content not included)... Normal [facility] Discharge Instructionson Discharge Instructions [id number] 819#1.00TIFF Normal [facility] ED Clinical Summaryon 2023 ED Clinical Summary [place] [id number] ED Clinical Summary Person Information Name: TIA MONROE [place] Elena[place] Age: 33 Years : 1990 Sex: Female Language: Maltese PCP: Linda Sheppard DO Marital Status: Visit [...] 23:59:00 05/11/2023 23:59:00 05/11/2023 23:59:00 ADDRESS: [address] [facility] [id number] PHYS DOC NOTES: MEDICAL INFORMATION: Prescriptions Given: New Medications [facility], [address], [place] [id number], [phone] amoxicillin-clavula cindi (Augmentin 875 mg oral tablet) [...] Medication PATIENT EDUCATION INFORMATION: Instructions: Dental Pain, Bjhm-cv-Atcr Follow up: With: Address: When: Linda Sheppard DO, Amelie C, [facility] [address] [place] [address] In 3 days 05/14/2023 DIAGNOSIS: 1:Pain, dental; 2:Infected dental caries; 3:First trimester ; Periapical abscess without sinus Normal [facility] ED Note-Physicianon 05-12-19 ED Note-Physician Basic Information Time Seen: Violet Walters PA-C 05/11/2023 22:59 Chief Complaint pt arrives for c/o dental pain on the right upper side. states cannot see her denitist d/t being . pt states seen in [place] and started on amoxcillin. History of Present Illness Patient is a 7-week 33-year-old female with history of PCOS that presents to the ED with her for evaluation of dental pain. Patient says pain started on Tuesday. She localizes it to the right upper jaw, radiates into her face ear and cheek. She went to [facility] yesterday and was initiated on amoxicillin [...] day(s), # 14 tab(s), Refills(s) 0, Pharmacy: [facility] 160, cm, 05/11/23 21:53:00 EST, Height/Length Dosing, 110, kg, 05/11/23 21:53:00 EST, Weight Dosing chlorhexidine topical, 0.018 gm, 15 mL, Oral, BID, 480 mL, Refill(s) 0, (swish and spit; do not swallow), [facility], 160, cm, 05/11/23 21:53:00 EST, Height/Length Dosing, 110, kg, 05/11/23 21:53:00 EST, Weight Dosing (more content not included)... Normal [facility] Comment on above: Result Comment: Elec [...] these instructions at home: Medicines ? Take wrrr-rli-gmpzihh and prescription medicines only as told by [...] to the area. Brushing your teeth ? [place] your teeth twice a day using a [...] when you eat or drink. ? Take vmgd-krb-xlvmjum and prescription medicines only as told by [...] Reviewed: 11/26/2020 Elsevier Patient Education ? 2022 [employer] Normal [facility] ED Patient Summaryon 024 ED Patient Summary [address] [address] Patient Discharge Instructions Person Information Name: TIA MONROE Age: 33 Years Arrival Date: 05/11/2023 21:25:54 Discharge Diagnosis: 1:Pain, dental; 2:Infected dental caries; 3:First trimester ; Periapical abscess without sinus Primary Care Physician: Linda Sheppard DO Provider Information Primary Provider: Zac Fields M.D. Advanced Snow Ranger:Violet Walters PA-C The exam and treatment you received in the Emergency Department were for an urgent problem and are not intended as complete care. It is important that you follow up with a doctor, nurse practitioner, or physician?s assistant to the director for ongoing care. If your symptoms become [...] Instructions: With: Address: When: Linda Sheppard DO [facility] Amelie Julien , [facility] [address] [place] [address] In 3 days 05/14/2023 In the event that this physician does not participate in your insurance network, please consult with your insurance company to find a nearby participating provider. Patient Education Materials: Dental Pain, Ftjt-vq-Kfyb A MESSAGE TO ALL PATIENTS REGARDING OPIOIDS PRESCRIPTION OPIOIDS: WHAT YOU NEED TO KNOW Prescription opioids can be used to help relieve xvcqbynx-xv-fnrfxi pain and are often prescribed following a [...] struggling with addiction, tell your health child caregiver private home an (more content not included)... Normal [facility] Consent for Treatmenton 03-0 Consent for Treatment [id number] 96#1.00TIFF Normal [facility] Progesteroneon 12-28-2022 Progesterone 12.60 ng/mL Normal [facility] Comment on above: Result Comment: Female: Follicular phase <0.19 ng/mL Ovulation phase 0.06-4.14 ng/mL Luteal phase 4.11-14.5 ng/mL Postmenopausal <0.13 ng/mL Performed By: #### P NICKY #### [employer] [address] [place] [address] Car Parker: Thor Hernández MD Progesteroneon 11-24-2022 Progesterone 7.18 ng/mL High 0.0-0.15 [facility] Comment on above: Result Comment: Female: Follicular phase <0.19 ng/mL Ovulation phase 0.06-4.14 ng/mL Luteal phase 4.11-14.5 ng/mL Postmenopausal <0.13 ng/mL Performed By: #### P NICKY #### [employer] [facility] [place] [address] Car Parker: Thor Hernández MD , Urineon 3 HCG ( test) Ql (U) Negative NEGATIVE [facility] [email or web address] [facility] [email or web address] XR ANKLE RIGHT (MIN 3 VIEWS) on 09-04-2022 FINDINGS/IMPRESSION : No acute displaced fracture identified. Ankle mortise is symmetric. There is a 1 mm tiny calcified body which is remote appearing near the distal fibular tip. Minimal ankle soft tissue edema. [facility] EXAM: XR ANKLE RIGHT (MIN 3 VIEWS) INDICATION: Reason for exam:->swelling COMPARISON: None. TECHNIQUE: Radiographs as described above [facility] Bettye Johnson MD - 09/04/2022 [...] [facility] Radiology Study observation (narrative) [facility] XR ANKLE RIGHT (MIN 3 VIEWS) Ordered By: Bettye Johnson on 09-04-2022 [facility] Work Phone: Coding Summary.on 07-09-2022 Coding Summary. CD:[id number] bWw+PGhlYWQ+VO8SYZX eI84mhKExsR6xM0AIWU lOSywgQVBQTElOSyIgb qXgUD5uyPMqYEBm IC8+CE4dIJOtEeuzlZP af7P7sWE9G41qyl9hSB dbtYG3JYSuRrNnukbrk 4xhcMh7PIqiXjgeYyCx VFAoqN11NCZ5gW73Vs5 8pTIwhLVaf0dgeQu9Np WtHQFnVTK3fIehUNjhq 7EeXZBlZ55duJAwh8W4 IGNvbGxhcHNlOyBlbXB 9bJ8mWZhngumsp5xxhw zkNdv3wi45cTClb7W6o AA6S3JmexI2WAMcbMEl KslclAOImZ5cevwyw1x zuvzpEsAyNHHbWOt6UW i2LZVsrIefRbFcFU55A ZZ1WWCikhBnB6FpGGTu nDqiTuD3p5H4Do0RC8X DKsvwU9LTDBEHKObtuH Q+YZ14oo68O3ZbGyspS sr8OSSwZHA0lBM1sM6c PHAbAMwoz7I8yMW9U5K ecbYvls0yg6ynMEZvJB xrX15ykPKto0I5MERbd HJ5DDVkrLgnOrTnfB98 Oyc+MHAkyGqdg0NmFjk va1kik3fseTd2AmagMI FtlgYaiPulXHE9d0OgN v4lKJWznEG0xJB1sM1w NdYnXsY2BDscC395EiS exVEnNxvqE71pH5IyeO A+QCWmJze4WFBeqWnkO B2lX5NgFTKvqwkdrXKb nOaaRT5qZVVvdepoYOR ojM5bNJTmU3f7TmAnGr L9BNihT4MtMUBnupmpS z15nG0pQoKgBjG4NNhe Y4DzygB0VFGjhLYfREx vVKR4M66na6S5DTVsDG WtONU8yRG5tL3hxEbfl jogbGVmdDsgdmVydGlj ODulCQbfG414YTXpeJs nPkNvZGluZyBEYXRlOi AgMDUvMDUvMjAyMzwvd GQ+DEJhGYN3oUfpCIFk uZEuKQsjGu6imQcznJb hWP4mVNVyptkxJKMeuL 3yPEFteIGfiMcnTC5mT RTzvutfm558YfRzLZU8 NECauZYxK8OejP3vMcR kXIBhJFLhF0MqyARwMV czB950KXxlSaO0RSQro sAkP6ExTYGgwYltWdP7 m9Z1Ba2Ys0NawvvtJ9C kpUHlVyHfNbitZUa7T7 RkPjwvdHI+WN89UKRxR T80NSq7BGV8uFjdGPap ESBxI0BxnI8lHpEwJGU kZGRkOyc+PHRhYmxlIH dpZHRoPScxMDAlJyBzd WfbVJ4gGe5tBDKuXRRw cFgosXJrAeRsv6bkIZQ lCAmiOW2sgPepW4JlcS S6GHNtd1q8Iu40H25oZ 3JvdXA+IPXnuIC3dIL7 hR6tMeHjWkC3KQudT58 0KxTokDNuUxsrp4ccm4 yaiSs8QdJ4IJHeqaBsh PjjYSR9g0LuSe45S80x IHdpZHRoPSIxNSUiIHZ vzUzenu8ezL6nEk8+PG SmpOM7bHG2jN5fMlWiT wZ5ZXfqG225GeBfiEAv Reovw2hqs0wdtHp6XgT oNHFeqoKylSheVBF2a0 LqZu76F0UvqHoug6PpQ zl5ft08aIHvs0W8oTC0 A5VtFXEhmgiicIVlaZr bKW9yAYKezfbuFOQddZ 8fLZBgT0e1MlOxMbY1W NkoX4YponS8JPBhsGAm XOOjhDRMsC1iyvzvk4f thuhaCwBaEODmLXr4VV a8XXGfjNskQzSzXUY8J kB2BEW3oIMkkJ5abCgu hhhwjQ1mFxh+NDT6fDA nrHFURI5eSsqvhMI+PH CuPDC3qPhhLDjpEOSbf D9yJFFlG9d7AgXvFzZ5 QKsrG8EcpxJ6UZEjpUW uUSQptBXCeX3vqfhxa8 pyaqqwQcSqUXToBVo8Q Qp5MYFziEbbYaUfCSL7 SlS1WRZ4rBDoeC8keEo dyuftrH8fYxg+QmlydG wvQCJ4XWa8U8YrAag7D YKuuGexWU6tnIKoRTum Xa7hmYbmwUbgUC9wQTF btufpf542WuLbe1gnQW WgcZZjAYraRNH9D81pl 0E2IANpOKVeEFH3fCE7 cL5ydYrfgpxnhRMgbAy gdmVydGljYWwtYWxpZ2 11VKDxtTegQmMtCUm0J 2LwVbc4ITCamIkjOE4w zIJyRKqwIl2dbPeizEd dPT2rIYUzjhjay041Ad Hoe4tdKRNkiTEeIDgcM ZW9V26bk5P0KMXsKQNu KRO2jWK2gI8haDfvntw gbGVmdDsgdmVydGljYW vuJIacM019KWMjbGecK pEfcUz0O0PjQoe4FMCy pLmzIZ9fqYUxDDadBk9 dyYoogZwxKN4eNOAmri nne908JlGsc6iaKCYij TZxYPowUQJ3T14am0G3 YXAfTJEiUWC0uSB5vQ8 hbGlnbjogbGVmdDsgdm MtfNttCUmeRYdoT814Z HRvcDsnPlBhdGllbnQg OOctJHr9J1FzFfsweIG +[id number] Jza7eroAh6ZbRiREWyM YV2bZqyLXrqz6KmGUAx C40lfSKcs4B4ZZPopZs rcWLdCsVxvSY9vL5mYK hzvdabf9byzfwdEsvkv 4dtrn54yO78V64oUQot ZHRoPSIzMCUiIHZhbGl qgy1cvI3vOv1+PGNvbC F4dNQ7bO8jSTDfGqW7K LzuI248TsWrtGLyTozu j2jcn9sjaGe6HoN9JGT znbCjgQhdJTO6r0KbZi 84Y08oGXptCXTsHQKjK FYhZNHfrHmxok3ucY9a Ii8+JABzpJD0iZF2xC9 gVuPkKuD6OIbiH697Ew IbnBJoTogwV21qG3Eha XA+PVSuChb7DECllHqr CN0ymOGlMFlyMq4aODW 3NgMmEyFrYQmwN7VoPR DhsbjluhtddMY0TFQhL VMlzC82Pv1vqZgeFWZh iSGTwD8ktujgh5jwszt nYcRzQBKtIPd6YFs4XI RnoLtyLiHyGFE2LcU6V BG4vWMqgR1nmEqjooiq nK3pQ9SeZSQpoitkIu3 6hR3zIaHlJzN0WVakKo c+Fl4KQmGOXrjsYbCVL kRJRTwvdGQ+PHRkIHN0 cYbkFEmsSPHbuS7mISE nH7s2KjJwJsK1QYwqZ9 ZtMNNakpceCz67rU9jC pSmBcD8IKbiX6ZfgcE6 LGYqrTFlYMbdBJK4U89 hf2D0XTEsAKFrTMC1gQ T9uM3qeDojkrmnrKNpv DsgdmVydGljYWwtYWxp O813ODHruTpsTgZdPsZ 1CnH4MZO4E6JeCwy2UE EeiNmuST6wtKWnLDfwU s6foOptqFedZQ4aAAJe vcvnOGEvpK0rLSAkmNH ekWwhKN0lXBPlpkjnb9 79UdPoITG2PUPosXEeG 9InqH7uXeQsMCSqYNAs C4UtrZDfYCnuA312AXr oBwK2CIJzfmNxO0DgAN ZimCciRcP2t1N9Df9rV iBZZWFyczwvdGQ+PHRk ZUP1iEelMFkgHGTklS1 bTSDbE5k2KeSiDyG5VU hxP1BrJPUsqyukAk10s D9yEhSoCtK9YJeqF2Ci zcG6EVNrhUUoGOlaKZR 2H06gc7C0WJVbZPKjEW Z5uNH8cJ3ceBljnaiwf GVmdDsgdmVydGljYWwt CNdhZ363SXKumEdaCkE lbWFsZTwvdGQ+PHRkIH Y1sNtpHRfwRIGmfM6zV HGjI7p9WgRpEiN6NCns U9GbHQLjolcjUh28gD3 rXjRpEdT1FQqdU0Byls D1KERvmFZnKUkdNRV5J 68sg8Q5VKFjRVRpWSU5 sJS8tO1odHijomofkMX mdDsgdmVydGljYWwtYW xcZ184NFHpkJebMcDnp N2lMBSmHIxqqTLijQsp dGQ+YG34os32A5NvJuk hBra2PZRsZMY1tIB2nZ 2cANRfKWwqq4R0vCF1E 7RczeOjju8wr1wlBRMw GLpuH61miZFve8S5RBZ urMY5NSWdpSepPcEsiR 93Oyc+TXPnrBkie2EqS otpl6oeu6pbwTo4OrVt WKCbvpGguBhaXBO5l7O gBl81J25bSNeoOEAqHB WvUDIpMSWtiClwbj9mg G9wIi8+KECjuQN0yIH4 eY9xBlTlRpS0AUhdI94 9ReZbhHVnBpshf7ltn7 nrcYx6NiNzLSWpgjDlo EhgORI0a2OhGm64I3Rb kKcpw7LpLdd3al22pYP nr9V7sWK0Z5TkAIFtqr pmgVXmqKkcBY8gDOHsf jgvCWZrqG2nJHWdY9v1 EaRcTvC1NOjaD3MpalL 6IGJvbGQgMTBwdCBUaW 1hdydce0kytqphRqYmJ XJjDGx5EBk3VOYyjDgu HlIqBTC3AlB9XAJ5oVP iaP8jnFpvddjdfF7nBw c+TPy8q2jdoGTnNA1ro IO5IZ91HS25cVLon6F3 nKS1Z4QwBTGrerrfhdy lbAJ1HXRaGFGjfC65Zl 5qqIqhJb8cEQCoTGP8W OGkmWBmM6QgdB7mVmIj WLYwJMSbC9GvbVPfEHy bA426TKbcPiO0DCDrem GuF7BvPTVnnCvoPiL7y 8J6Vu5IVL06CU06HK72 cZRtu6Y0bNA8D1GlIYF vxwdrvqhkwBN6UAAvCK MzmQ97Ym6hwJuxIe9jK RGyFQW6RNFxlPGtW3Uk sL9sIhXnMHFhNZTgA7B vxMJhAFkcA133OVfzYr M3DWUnmdQvC4NkZCVsa AgxCgO0r1X2Tp9LWw90 UY02PX51gASab4J1oPT 0G1JxHFLxbtunrivwmF I3ATTbFMEurS72Ws2gg CciAf5jBVUxLOV6UWYh vHQvZ8YwqU0eKxLwAQU wPKZzE5UafVKrOOglX9 72LNkuVnQ2FFLubhCdG 3BpCLBscAyfRpL9x9M8 Dw2NCQaldxi1U9BiGjn vdHI+UY87XSJcJF51rF VvwAHwb6ifhJl8BqKrF LXvCKQ7hRuuZEdat0Cp XWZhR61l (more content not included)... Normal [facility] Consultation Noteon 07-07-19 Consultation Note Patient: [...] Problems Acute hepatitis C / SNOMED CT 479093291 / Confirmed Anxiety / SNOMED CT 04717922 / Confirmed Apnea, sleep / SNOMED CT 513291294 / Confirmed Dental caries / SNOMED CT 410913342 / Confirmed PCOS (polycystic ovarian syndrome) / SNOMED CT 032035009 / Confirmed Histories Past Medical History: Active Dental caries (008631300) Family History: No family history items have [...] Patient agrees with plan of care. Normal [facility] Comment on above: Result Comment: Elec tronically Signed By: Bing PEDRAZA, Todd Lilly\.br\Date and Time Signed: 07/06/22 13:28 EDT DHEA SERUMon 07-04-2022 Dehydroepiandrosterone (DHEA) 220 ng/dL Normal 31-701 [facility] Comment on above: Performed By: #### Vijaya OMER. ####[facility] [address] [place], [place] [address]OeSelwyn Sanchez DHEA-SULFATEon 06-30-2022 DHEA-Sulfate 106.0 ug/dL Normal 84.8-378.0 [facility] Comment on above: Performed By: #### Vijaya TATUM ####[facility] [address] [place], [place] [address]PpSelwyn Sanchez FSHon 06-30-2022 FSH 6.6 mIU/mL Normal [facility] Comment on above: Result Comment: Adul t Female: Follicular phase 3.5 - 12.5 Ovulation phase 4.7 - 21.5 Luteal phase 1.7 - 7.7 Postmenopausal 25.8 - 134.8 Performed By: #### L BCFS #### [facility] [address] [place] [address] Dr. Nito Sanchez LUTEINIZING HORMONE (LH)on 0 06-30-2022 LH 18.9 mIU/mL Normal [facility] Comment on above: Result Comment: Adul t Female: Follicular phase 2.4 - 12.6 Ovulation phase 14.0 - 95.6 Luteal phase 1.0 - 11.4 Postmenopausal 7.7 - 58.5 Performed By: #### L BCL #### [facility] [address] [place] [address] Dr. Nito aSnchez PROLACTINon 06-30-2022 Prolactin 5.3 ng/mL Normal 4.8-23.3 [facility] Comment on above: Performed By: #### P ROLAC #### [facility] [address] [place] [address] Dr. Nito Sanchez CBC AUTO DIFFon 06-29-2022 BASO # 0.1 103/ul Normal 0.0-0.1 [facility] Comment on above: Performed By: #### C BC #### [facility] [address] [place] [address] Dr. Nito Sanchez Basophils/100 WBC (Bld) 0.5 % Normal 0.2-2.0 [facility] Comment on above: Performed By: #### C BC #### [facility] [address] [place] [address] Dr. Nito Sanchez EO # 0.2 103/ul Normal 0.0-0.7 [facility] Comment on above: Performed By: #### C BC #### [facility] [address] [place] [address] Dr. Nito Sanchez Eosinophils/100 WBC (Bld) 1.6 % Normal 0.9-7.0 [facility] Comment on above: Performed By: #### C BC #### [facility] [address] [place] [address] Dr. Nito Sanchez Erythrocyte distribution width (RBC) [Ratio] 13.6 % Normal 11.0-15.0 [facility] Comment on above: Performed By: #### C BC #### [facility] [address] [place] [address] Dr. Nito Sanchez Hematocrit (Bld) [Volume fraction] 39.7 % Normal 36.0-48.0 [facility] Comment on above: Performed By: #### C BC #### [facility] [address] [place] [address] Dr. Nito Sanchez Hemoglobin (Bld) [Mass/Vol] 13.1 g/dL Normal 12.0-16.0 [facility] Comment on above: Performed By: #### C BC #### [facility] [address] [place] [address] Dr. Nito Sanchez IG # 0.05 10e3/ul Critically high 0.00-0.03 [facility] Comment on above: Performed By: #### C BC #### [facility] [address] [place] [address] Dr. Nito Sanchez IG % 0.5 % Normal 0.0-0.5 [facility] Comment on above: Performed By: #### C BC #### [facility] [address] [place] [address] Dr. Nito Sanchez LYMPH # 2.6 103/ul Normal 1.2-3.8 [facility] Comment on above: Performed By: #### C BC #### [facility] [address] [place] [address] Dr. Nito Sanchez Lymphocytes/100 WBC (Bld) 25.3 % Normal 20.5-60.0 [facility] Comment on above: Performed By: #### C BC #### [facility] [address] [place] [address] Dr. Nito Sanchez MANUAL DIFF REQ NO Normal [facility] Comment on above: Performed By: #### C BC #### [facility] [address] [place] [address] Dr. Nito Sanchez MCH (RBC) [Entitic mass] 27.1 pg Normal 26.7-34.0 [facility] Comment on above: Performed By: #### C BC #### [facility] [address] [place] [address] Dr. Nito Sanchez MCHC (RBC) [Mass/Vol] 33.0 g/dL Normal 29.9-35.2 [facility] Comment on above: Performed By: #### C BC #### [facility] [address] [place] [address] Dr. Nito Sanchez MCV (RBC) [Entitic vol] 82.2 fL Normal 81.0-99.0 [facility] Comment on above: Performed By: #### C BC #### [facility] [address] [place] [address] Dr. Nito Sanchez MONO # 0.5 103/ul Normal 0.3-0.8 [facility] Comment on above: Performed By: #### C BC #### [facility] [address] [place] [address] Dr. Nito Sanchez Monocytes/100 WBC (Bld) 5.0 % Normal 1.7-12.0 [facility] Comment on above: Performed By: #### C BC #### [facility] [address] [place] [address] Dr. Nito Sanchez NEUT # 6.9 103/ul Critically high 1.4-6.[address] [facility] Comment on above: Performed By: #### C BC #### [facility] [address] [place] [address] Dr. Nito Sanchez Neutrophils/100 WBC (Bld) 67.1 % Normal 43.0-75.0 [facility] Comment on above: Performed By: #### C BC #### [facility] [address] [place] [address] Dr. Nito Sanchez Platelet mean volume (Bld) [Entitic vol] 10.0 fL Normal 9.5-13.5 [facility] Comment on above: Performed By: #### C BC #### [facility] [address] [place] [address] Dr. Nito Sanchez PLT 313 103/ul Normal 150-450 [facility] Comment on above: Performed By: #### C BC #### [facility] [address] [place] [address] Dr. Nito Sanchez RBC 4.83 106/ul Normal 4.20-5.40 [facility] Comment on above: Performed By: #### C BC #### [facility] [address] [place], [place] [address] Dr. Nito Sanchez WBC 10.3 103/ul Normal 4.0-11.0 [facility] Comment on above: Performed By: #### C BC #### [facility] [address] [place] [address] Dr. Nito Sanchez Consent for Treatmenton 06-06 Consent for Treatment [id number] 650#1.00CD:127 Normal [facility] FREE T4on 06-29-2022 Free T4 [Mass/Vol] 1.01 ng/dL Normal 0.76-1.46 [facility] Comment on above: Performed By: #### F T4 #### [facility] [address] [place] [address] Dr. Nito Sanchez GLYCOHEMOGLOBIN A1Con 2022 ADA RECOMMENDATION SEE BELOW Normal [facility] Comment on above: Result Comment: ADA RECOMMENDED LIMIT 4.0 - 6.0 ADA THERAPEUTIC TARGET < 7.0 ACTION SUGGESTED > 7.0 Performed By: #### A 1C #### [facility] [address] [place] [address] Dr. Nito Sanchez Glucose [Mass/Vol] 108 mg/dL Normal [facility] Comment on above: Performed By: #### A 1C #### [facility] [address] [place] [address] Dr. Nito Sanchez HbA1c (Bld) [Mass fraction] 5.4 % Normal 4.5-6.2 [facility] Comment on above: Performed By: #### A 1C #### [facility] [address] [place] [address] Dr. Nito Sanchez HIPAA Forms Officeon 023 HIPAA Forms Office [id number] 602#1.00CD:127 Normal [facility] Legal Correspondence Officeo n 06-29-2022 Legal Correspondence Office [id number] 270#1.00CD:127 Normal [facility] Legal Correspondence Office [id number] 787#1.00CD:127 Normal [facility] Office/Clinic Note-Physician on 06-29-2022 Office/Clinic Note-Physician [id number] 515#1.00CD:127 [facility] Orders Officeon 06-29-2022 Orders Office [id number] 642#1.00CD:127 [facility] PREG QUANT HCGon 06-29-2022 HCG QUANT 1 mIU/mL [facility] Comment on above: Performed By: #### T BERNICE, PREGQNT #### [facility] [address] [place] [address] Dr. Nito Sanchez HCG RANGE SEE BELOW [facility] Comment on above: Result Comment: 5-50 0.2-1 WEEK 50-500 1-2 WEEKS 100-5,000 2-3 WEEKS 500-10,000 3-4 WEEKS 1,000-50,000 4-5 WEEKS 10,000-100,000 5-6 WEEKS 15,000-200,000 6-8 WEEKS 10,000-100,000 2-3 MONTHS Performed By: #### T BERNICE, PREGQNT #### [facility] [address] [place] [address] Dr. Nito Sanchez Patient Correspondenceon Patient Correspondence [id number] 946#1.00CD:127 [facility] Patient Correspondence [id number] 137#1.00CD:127 Normal [facility] Patient Correspondence [id number] 273#1.00CD:127 [facility] Patient Correspondence [id number] 879#1.00CD:127 [facility] Patient Correspondence [id number]#1.00CD:127 Normal [facility] Patient History Officeon Patient History Office [id number]#1.00CD:127 Normal [facility] Patient History Office [id number] 721#1.00CD:127 Normal [facility] Radiology Outside Office Seasonal Clerk yon 06-29-2022 Radiology Outside Office Copy [id number] 142#1.00CD:127 Normal [facility] TSHon 06-29-2022 TSH 0.848 uIU/mL Normal 0.358-3.740 [facility] Comment on above: Performed By: #### T , PREGQNT #### [facility] [address] [place] [address] Dr. Nito Sanchez US PELVIS AND TRANSVAGon [...] polycystic ovarian syndrome. Electronically authenticated by: BETTYE ZILEIDYLATA Date: 2022-06-29 15:17 Normal [facility] PAP ACOG PANEL 2: 30 to 65on 06-19-2022 . . Normal [facility] Comment on above: Result Comment: Perf ormed at: WB Performed By: #### 4 [id number] #### [facility] [address] [address] [address] Nito Sanchez Age Gdln ACOG Testing 30-65 Normal [facility] Comment on above: Performed By: #### 4 [id number] #### [facility] [address] [address] [address] Nito Sanchez DIAGNOSIS: Comment Normal [facility] Comment on above: Result Comment: NEGA TIVE FOR INTRAEPITHELIAL LESION OR MALIGNANCY. Performed at: WB Performed By: #### 4 [id number] #### [facility] [address] [address] [address] Nito Sanchez HPV Aptima Negative Normal Negative [facility] Comment on above: Result Comment: This nucleic acid amplification test detects fourteen high-risk HPV types (16,18,31,33,35,39,45,51,52,56,58,59,66,68) without differentiation. Performed at: =G Performed By: #### 4 [id number] #### [facility] [address] [address] [address] Nito Sanchez HPV Genotype Reflex Comment Normal [facility] Comment on above: Result Comment: Crit eria not met, HPV Genotype not performed. Performed at: WB Performed By: #### 4 [id number] #### [facility] [address] [address] [address] Nito Sanchez Methodology: Comment Normal [facility] Comment on above: Result Comment: This liquid based ThinPrep(R) pap test was screened with the use of an image guided system. Performed at: WB Performed By: #### 4 [id number] #### [facility] [address] [place] [address] Dr. Nito Sanchez Note: Comment Normal [facility] Comment on above: Result Comment: The Pap smear is a screening test designed to aid in the detection of premalignant and malignant conditions of the uterine cervix. It is not a diagnostic procedure and should not be used as the sole means of detecting cervical cancer. Both false-positive and false-negative reports do occur. . Performed at: WB Performed By: #### 4 [id number] #### [facility] [address] [address] [address] Nito Sanchez Performed by: Comment Normal [facility] Comment on above: Result Comment: Nanda Treadwell, Personal Fitness Manager (ASCP) Performed at: WB Performed By: #### 4 [id number] #### [facility] [address] [address] [address] Nito Sanchez Specimen adequacy: Comment Normal [facility] Comment on above: Result Comment: Sati sfactory for evaluation. Endocervical and/or squamous metaplastic cells (endocervical component) are present. Performed at: WB Performed By: #### 4 [id number] #### [facility] [address] [address] [address] MAXILLOFACIAL WO CONTRAST on 05-11-2022 Recent extraction of the right mandibular and maxillary second molar teeth with presence of air in the respective tooth sockets. No evidence of edema in the sublingual space or the buccal space Probable periapical abscess involving the right maxillary premolar tooth adjacent to the first molar tooth. [facility] RIS CONSOLIDATED EXAM: CT MAXILLOFACIAL [...] visualized intracranial contents show no acute process. [facility] Phil Mary MD - 05/11/2022 EXAM: [...] tooth adjacent to the first molar tooth. [employer] Work Phone: Radiology Study observation (narrative) [employer] Work Phone: CT MAXILLOFACIAL WO CONTRAST Ordered By: Phil Mary on 05-11-2022 [employer] Work Phone: Urine Preg (Lab)on 3 Beta HCG ( test) Ql (U) Negative NEGATIVE [facility] [email or web address] [facility] [employer] HCG, Quantitative, on 03-29-2022 hCG Quant NINF [facility] [employer] Comment on above: Non-preg premeno <=5 Postmeno <=8 Male <=3 If HCG results do not concur with clinical observations, additional testing to confirm results is recommended. [employer] COVID-19, Rapidon 07-22-2021 SARS-CoV-2 (COVID-19) RNA KALPESH+probe Ql (Unsp spec) Not detected Not Detected [employer] Comment on above: Rapid NAAT: The specimen [...] management decisions. Fact sheet for Healthcare Providers: https://www.fda.gov/media/133532/download Fact sheet for Patients: https://www.fda.gov/media/633069/download Methodology: Isothermal Nucleic Acid Amplification Specimen Description .NASOPHARYNGEAL SWAB [facility] Strep Screen Group A Throato n 07-22-2021 S. pyogenes Ag Ql (Throat) Negative NEGATIVE [facility] Comment on above: Rapid Strep A negati ve. A negative Rapid Group A Strep Screen result does not rule out the possibility of Group A Streptococci in the specimen. A Group A Strep DNA test is available upon request. Source .THROAT SWAB [facility] MR LUMBAR SPINE WITHOUT CONT [facility] 06-17-2021 MR LUMBAR SPINE WITHOUT CONTRAST [...] foraminal stenosis. 2. No fracture or spondylolisthesis. [facility] Workstation ID: [id number] Dictated by: JONATHAN LINARES on [facility] Jun 18, 2021 11:51:00 AM EDT Transcribed by: ZULMA CARDENAS on Jan[facility] Jun 18, 2021 11:58:13 AM EDT Finalized by: JONATHAN LINARES on [facility] Jun 18, 2021 12:35:45 PM EDT [facility] Comment on above: Order Comment: Injur y/Trauma or Illness?:Illness/Other How long have you had these symptoms (acute/chronic)?:Chronic Reason for exam?:LBP AND bilat hip pain x years, nki Type of Exam?:Subsequent/Follow-up Additional signs and symptoms?:. CBC panel Auto (Bld)on 04-16 Erythrocyte distribution width (RBC) [Entitic vol] 14.0 % 11.6 - 14.8 % [facility] Hematocrit (Bld) [Volume fraction] 38.6 % 36.0 - 46.0 % [facility] Hemoglobin (Bld) [Mass/Vol] 12.1 g/dL 12.0 - 16.0 g/dL [facility] Interpretation and review of laboratory results Abnormal [facility] MCH (RBC) [Entitic mass] 25.4 pg Low 26. 0 - 34.0 pg [facility] MCHC (RBC) [Mass/Vol] 31.3 g/dL 31.0 - 37.0 g/dL [facility] MCV (RBC) [Entitic vol] 81.1 fL 80.0 - 100.0 fL [facility] Platelet mean volume (Bld) [Entitic vol] 10.0 fL 9.4 - 12.4 fL [facility] Platelets (Bld) [#/Vol] 379 10*3/uL [facility] RBC (Bld) [#/Vol] 4.76 10*6/uL [facility] WBC (Bld) [#/Vol] 9.85 10*3/uL [facility] Comprehensive metabolic 2000 panelon 04-16-2021 Albumin [Mass/Vol] 3.7 g/dL 3.2 - 5.2 g/dL [facility] ALP [Catalytic activity/Vol] 95 U/L 40 - 140 U/L [facility] ALT [Catalytic activity/Vol] 36 U/L 14 - 65 U/L [facility] Anion gap [Moles/Vol] 11 mmol/L 10 - 2 0 mmol/L [facility] AST [Catalytic activity/Vol] 22 U/L 0 - 45 U/L [facility] Bilirubin [Mass/Vol] 0.3 mg/dL 0.0 - 1 .3 mg/dL [facility] Calcium [Mass/Vol] 9.3 mg/dL 8.4 - 10. 2 mg/dL [facility] Chloride [Moles/Vol] 105 mmol/L 98 - 10 8 mmol/L [facility] Creatinine [Mass/Vol] 0.68 mg/dL 0.40 - 1.10 [facility] GFR/1.73 sq M.predicted CKD-EPI (S/P/Bld) [Vol rate/Area] 117 >=60 mL/min/1.73 m2 [facility] Glucose [Mass/Vol] 76 mg/dL 65 - 99 mg/dL [facility] HCO3 [Moles/Vol] 26 mmol/L 21 - 32 mmol/L [facility] Interpretation and review of laboratory results Normal [facility] Potassium [Moles/Vol] 4.2 mmol/L 3.5 - 5.1 mmol/L [facility] Protein [Mass/Vol] 7.5 g/dL 6.0 - 8.0 g/dL [facility] Sodium [Moles/Vol] 138 mmol/L 135 - 145 mmol/L [facility] Urea nitrogen [Mass/Vol] 13 mg/dL 8 - 25 mg/dL [facility] Urea nitrogen/Creatinine [Mass ratio] 19.1 mg/mg [facility] The eGFR should be used for monitoring renal function only and not for medication dosing. [facility] Lipid 1996 panelon Cholesterol [Mass/Vol] 195 mg/dL 100 - 199 mg/dL [facility] Comment on above: National Cholesterol Education Program Guidelines: Cholesterol Desirable: <200 mg/dL Borderline High: 200-239 mg/dL High: greater than or equal to 240 mg/dL Cholesterol in HDL [Mass/Vol] 56 mg/dL 40 - 59 [facility] Comment on above: National Cholesterol Education Program Guidelines: HDL Cholesterol Low: <40 mg/dL Near Optimal: 40-59 mg/dL High: greater than or equal to 60 mg/dL Cholesterol in LDL [Mass/Vol] 109 mg/dL 10 - 130 mg/dL [facility] Comment on above: National Cholesterol Education Program Guidelines: LDL Cholesterol Optimal: <100 mg/dL Near Optimal/above Optimal: 100-129 mg/dL Borderline High: 130-159 mg/dL High: 160-189 mg/dL Very High: greater than or equal to 190 mg/dL Cholesterol non HDL [Mass/Vol] 139 mg/dL [facility] Comment on above: National Cholesterol Education Program Guidelines: NON HDL Cholesterol Desirable: <130 mg/dL Borderline High: 130-159 mg/dL High: 160-189 mg/dL Very High: > or = 190 mg/dL Cholesterol.total/Cholest [place] in HDL [Mass ratio] 3.5 {ratio} ratio [facility] Comment on above: Female Cholesterol/H DL Ratio: Average risk: 4.4 1/2 average risk: 3.3 2 x average risk: 7.1 Interpretation and review of laboratory results Abnormal [facility] Triglyceride [Mass/Vol] 151 mg/dL High 30 - 150 mg/dL [facility] Comment on above: National Cholesterol Education Program Guidelines: Triglyceride Normal: <150 mg/dL Borderline High: 150-199 mg/dL High: 200-499 mg/dL Very High: greater than or equal to 500 mg/dL No Panel Informationon 04-16 [facility] TSH DL <= 0.005 mIU/L Qnon 0 04-16-2021 Interpretation and review of laboratory results Normal [facility] TSH Qn 1.04 m[IU]/L [facility] Basic Metabolic Panel w/ Ref ray to MGon 03-23-2021 Anion gap [Moles/Vol] 13 mmol/L 9 - 17 mmol/L [facility] Calcium [Mass/Vol] 8.8 mg/dL 8.6 - 10. 4 mg/dL [facility] Chloride [Moles/Vol] 104 mmol/L 98 - 10 7 mmol/L [facility] CO2 [Moles/Vol] 21 mmol/L 20 - 31 mmol/L [facility] Creatinine [Mass/Vol] 0.65 mg/dL 0.50 - 0.90 mg/dL [facility] GFR >60 >60 mL/min [facility] GFR Non- >60 >60 mL/min [facility] GFR/1.73 sq M.predicted MDRD (S/P/Bld) [Vol rate/Area] [facility] Comment on above: Average GFR for 30-3 9 years old: 107 mL/min/1.73sq m Chronic Kidney Disease: <60 mL/min/1.73sq m Kidney failure: <15 mL/min/1.73sq m eGFR calculated using average adult body mass. Additional eGFR calculator available at: [email or web address] [email or web address] GFR/1.73 sq M.predicted MDRD (S/P/Bld) [Vol rate/Area] NOT REPORTED [facility] Glucose [Mass/Vol] 104 mg/dL High 70 - 99 mg/dL [facility] Interpretation and review of laboratory results Abnormal [facility] Potassium [Moles/Vol] 3.7 mmol/L 3.7 - 5.3 mmol/L [facility] Sodium [Moles/Vol] 138 mmol/L 135 - 144 mmol/L [facility] Urea nitrogen (BldV) [Mass/Vol] 15 mg/dL 6 - 20 mg/dL [facility] Urea nitrogen/Creatinine (Bld) [Mass ratio] 23 High [facility] CBC Auto Differentialon 03-07 Absolute Eos # 0.10 [facility] th Absolute Immature Granulocyte NOT REPORTED [facility] Absolute Lymph # 0.60 Low [facility] alth Absolute [place] # 0.50 [facility] lt Basophils (Bld) [#/Vol] 0.00 10*3/uL [facility] Basophils/100 WBC (Bld) 0 % 0 - 2 % M [facility] Differential Type YES [facility] Eosinophils/100 WBC (Bld) 2 % 0 - 5 % [facility] Hematocrit (Bld) [Volume fraction] 34.6 % Low 36 - 46 % [facility] Hemoglobin.gastrointestin al spec 1 Ql (Stl) 11.7 g/dL Low 12.0 - 16.0 g/dL [facility] Immature Granulocytes NOT REPORTED 0 % M [facility] Interpretation and review of laboratory results Abnormal [facility] Lymphocytes/100 WBC (Bld) 13 % Low 15 - 40 % [facility] MCH (RBC) [Entitic mass] 26.4 pg 26 - 34 pg [facility] MCHC (RBC) [Mass/Vol] 33.8 g/dL 31 - 3 7 g/dL [facility] MCV (RBC) [Entitic vol] 78.2 fL Low 80 - 100 fL [facility] Monocytes/100 WBC (Bld) 10 % High 4 - 8 % M [facility] NRBC Automated NOT REPORTED per 100 WBC [facility] Platelet distribution width (Bld) [Ratio] 14.4 % 12.1 - 15.2 % [facility] Platelet Estimate NOT REPORTED [facility] Platelet mean volume (Bld) [Entitic vol] NOT REPORTED 6.0 - 12.0 fL [facility] Platelets (Bld) [#/Vol] 259 10*3/uL [facility] RBC (Bld) [#/Vol] 4.43 10*6/uL 4.0 - 5.2 m/uL [facility] RBC (Bld) [#/Vol] NOT REPORTED [facility] Segmented neutrophils/100 WBC (Bld) 75 % 47 - 75 % [facility] Segs Absolute 3.60 [facility] WBC (Bld) [#/Vol] 4.8 10*3/uL [facility] WBC (Bld) [#/Vol] NOT REPORTED [facility] COVID-19, Rapidon 03-23-2021 Interpretation and review of laboratory results Abnormal [facility] SARS-CoV-2 (COVID-19) RNA KALPESH+probe Ql (Unsp spec) Detected Abnormal Not Detected [facility] Comment on above: Rapid NAAT: [...] this assay. Fact sheet for Healthcare Providers: https://www.fda.gov/media/231886/download Fact sheet for Patients: https://www.fda.gov/media/409436/download Methodology: Isothermal Nucleic Acid Amplification Results reported to the appropriate Health Department Specimen Description .[facility]AL [facility]AB [facility] No Panel Informationon 03-23 Direct Exam Negative [employer] Rapid influenza A/B antigens on 03-23-2021 Special Requests NOT REPORTED [employer] Specimen Description .NASOPHARYNGEAL SWAB [facility] CardKill [facility] COVID-19, RapidOrdered By: Shayy Springer on 12-27-2020 SARS-CoV-2 (COVID-19) RNA KALPESH+probe Ql (Unsp spec) Not detected Not Detected [employer] Phone: Comment on above: Rapid NAAT: The [...] management decisions. Fact sheet for Healthcare Providers: https://www.fda.gov/media/655360/download Fact sheet for Patients: https://www.fda.gov/media/290696/download Methodology: Isothermal Nucleic Acid Amplification Specimen Description .NASOPHARYNGEAL SWAB [employer] Phone: [employer] Phone: Strep Screen Group A ThroatO rdered By: Wayne Springer on 12-27-2020 S. pyogenes Ag IA Ql (Unsp spec) Rapid Strep A negative. A negative Rapid Group A Strep Screen result does not rule out the possibility of Group A Streptococci in the specimen. A Group A Strep DNA test is available upon request. [employer] Phone: Special Requests NOT REPORTED [employer] Phone: Specimen Description .THROAT [employer] Phone: [employer] Phone: XR SHOULDER RIGHT (MIN 2 VIE WS)Ordered By: Anuj Quinn on 11-20-2020 No acute fracture or traumatic malalignment. [employer] Phone: EXAMINATION: XR SHOULDER RIGHT (MIN 2 VIEWS), , 11/20/2020 9:30 PM EDT INDICATION: Reason for exam:->shoulder pain HISTORY: Ordering Provider Reason for Exam: Technologist Note: Additional: COMPARISON: None. TECHNIQUE: Right shoulder x-ray: 3 view(s). FINDINGS: No acute fracture. Glenohumeral and acromioclavicular joints are anatomically aligned. Joint spaces are preserved. Soft tissues are unremarkable. [employer] Phone: [place], [facility] Incoming Radiant Results From Results Scorecard/YEVVO - 11/20/2020 9:55 PM EDT EXAMINATION: XR [...] IMPRESSION: No acute fracture or traumatic malalignment. [employer] Phone: [employer] Phone: COVID-19, MOLECULARon 2020 SARS-CoV-2 (COVID-19) RNA KALPESH+probe Ql (Unsp spec) Not detected Normal Not Detected [facility] Comment on above: Order Comment: : [...] at the following links: For Healthcare Providers: https://www.Tk20.gov/media/146219/download For Patients: https://www.fda.gov/media/649548/download Performed By: #### L [id number] #### [facility] [address] [place] [address] Joe Rider M.D. [id number] HbA1c (Bld) [Mass fraction]O rdered By: Zelda Bautista on 07-09-2020 Interpretation and review of laboratory results Normal [facility] POC Hemoglobin [id number] By : Zelda Bautista on 07-09-2020 HbA1c (Bld) [Mass fraction] 5.2 % 4.0 - 6.0 % [facility] HbA1c (Bld) [Mass fraction]O rdered By: Lelo Gallegos on 06-09-2020 Interpretation and review of laboratory results Normal [facility] POC Hemoglobin [id number] By : Lelo Gallegos on 06-09-2020 HbA1c (Bld) [Mass fraction] 5.6 % 4.0 - 6.0 % [facility] CBC Auto Differentialon 03-08 Basophils (Bld) [#/Vol] 0.00 10*3/uL [place] [facility] [place] Basophils/100 WBC (Bld) 0 % 0 - 2 % M [facility] Differential Type YES [facility] [place] Eosinophils (Bld) [#/Vol] 0.10 10*3/uL [place] Eosinophils/100 WBC (Bld) 1 % 0 - 5 % [place] Erythrocyte distribution width (RBC) [Ratio] 14.2 % 12.1 - 15.2 % [place] Hematocrit (Bld) [Volume fraction] 36.1 % 36 - 46 % [place] Hemoglobin (Bld) [Mass/Vol] 12.5 g/dL 12 - 16 g/dL [place] Interpretation and review of laboratory results Abnormal [place] Lymphocytes (Bld) [#/Vol] 2.00 10*3/uL [place] Lymphocytes/100 WBC (Bld) 14 % Low 15 - 40 % [place] MCH (RBC) [Entitic mass] 30.6 pg 26 - 34 pg [place] MCHC (RBC) [Mass/Vol] 34.5 g/dL 31 - 3 7 g/dL [place] MCV (RBC) [Entitic vol] 88.5 fL 80 - 100 fL [place] Monocytes (Bld) [#/Vol] 0.80 10*3/uL [place] Monocytes/100 WBC (Bld) 6 % 4 - 8 % M [place] Platelet mean volume (Bld) [Entitic vol] NOT REPORTED 6 - 12 fL [place] Platelets (Bld) [#/Vol] 300 10*3/uL [place] Platelets (Bld) [#/Vol] NOT REPORTED [place] RBC (Bld) [#/Vol] 4.08 10*6/uL 4 - 5.2 m/uL [place] RBC morphology finding Nom (Bld) NOT REPORTED [place] Segmented neutrophils/100 WBC (Bld) 79 % High 47 - 75 % [place] Segs Absolute 10.70 High [place] WBC (Bld) [#/Vol] 13.6 10*3/uL [place] WBC (Bld) [#/Vol] NOT REPORTED per 100 WBC [place] WBC Morphology NOT REPORTED [place] COVID-19, PCRon 03-26-2020 SARS-CoV-2, Rapid Not Detected Not Detected [place] Comment on above: Rapid NAAT: The [...] management decisions. Fact sheet for Healthcare Providers: https://www.fda.gov/media/376019/download Fact sheet for Patients: https://www.fda.gov/media/365656/download Methodology: Isothermal Nucleic Acid Amplification Source .THROAT [place] Comprehensive Metabolic Pane l w/ Reflex to MGon 03-26-2020 Albumin [Mass/Vol] 3.3 g/dL Low 3.5 - 5.2 g/dL [place] Albumin/Globulin [Mass ratio] NOT REPORTED [place] ALP [Catalytic activity/Vol] 57 U/L 35 - 104 U/L [place] ALT [Catalytic activity/Vol] U/L Low 5 - 33 U/L [place] Anion gap [Moles/Vol] 11 mmol/L 9 - 17 mmol/L [place] AST [Catalytic activity/Vol] 9 U/L <32 [place] Bilirubin Ql (U) 0.10 mg/dL Low 0.3 - 1.2 mg/dL [place] Bun/Cre Ratio 21 High [place] Calcium [Mass/Vol] 10.2 mg/dL 8.6 - 10. 4 mg/dL [place] Chloride [Moles/Vol] 104 mmol/L 98 - 10 7 mmol/L [place] CO2 [Moles/Vol] 21 mmol/L 20 - 31 mmol/L [place] Creatinine [Mass/Vol] 0.42 mg/dL Low 0.5 - 0.9 mg/dL [place] GFR >60 >60 mL/min [place] GFR Non- >60 >60 mL/min [place] GFR/1.73 sq M predicted among non-blacks MDRD (S/P/Bld) [Vol rate/Area] NOT REPORTED [place] GFR/1.73 sq M predicted among non-blacks MDRD (S/P/Bld) [Vol rate/Area] [place] Comment on above: Average GFR for 30-3 9 years old: 107 mL/min/1.73sq m Chronic Kidney Disease: <60 mL/min/1.73sq m Kidney failure: <15 mL/min/1.73sq m eGFR calculated using average adult body mass. Additional eGFR calculator available at: http://www.[email or web address]_[email or web address] Glucose [Mass/Vol] 100 mg/dL High 70 - 99 mg/dL [place] Interpretation and review of laboratory results Abnormal [place] Potassium [Moles/Vol] 3.8 mmol/L 3.7 - 5.3 mmol/L [place] Protein [Mass/Vol] 6.5 g/dL 6.4 - 8.3 g/dL [place] Sodium [Moles/Vol] 136 mmol/L 135 - 144 mmol/L [place] Urea nitrogen [Mass/Vol] 9 mg/dL 6 - 20 mg/dL [place] Otheron 03-26-2020 SARS-CoV-2 [place] Immature granulocytes (Bld) [#/Vol] NOT REPORTED [place] Urinalysis, reflex to micros copicon 03-26-2020 Bilirubin Urine Negative NEGATIVE [place], [place] Color, UA YELLOW YELLOW [place] Glucose, Ur Negative NEGATIVE [place] Ketones Ql (U) Negative NEGATIVE [place] Leukocyte esterase Test strip Ql (U) Negative NEGATIVE [place] Nitrite, Urine Negative NEGATIVE [place] pH, UA 7.0 [place] Protein (U) [Mass/Vol] Negative NEGATIVE [place] Specific [place], UA 1.010 [place] Turbidity UA CLEAR CLEAR [place] Urinalysis Comments [place] Urine Hgb Negative NEGATIVE [place] Urobilinogen, Urine Normal Normal [place] Wet Prep, Genitalon 11-20-19 20 Direct Exam MODERATE EPITHELIAL CELLS Abnormal [place] Direct Exam FEW TRICHOMONAS SEEN Abnormal [place] Direct Exam MODERATE BACTERIA Abnormal [place] Direct Exam Few epithelials coated with bacteria resembling clue cells. Abnormal [place] Direct Exam NO FUNGAL ELEMENTS SEEN [place] Interpretation and review of laboratory results Abnormal [place] Special Requests NOT REPORTED [place] Specimen Description .VAGINAL SPECIMEN [place] WBC (Bld) [#/Vol] FEW WBC SEEN Abnormal [place] Basic Metabolic Panelon 06-05 Anion gap [Moles/Vol] 15 mmol/L 10 - 2 0 mmol/L [facility] Calcium [Mass/Vol] 8.6 mg/dL 8.4 - 10. 2 mg/dL [facility] Chloride [Moles/Vol] 102 mmol/L 98 - 10 8 mmol/L [facility] Creatinine [Mass/Vol] 0.36 mg/dL Low 0.40 - 1.10 [facility] GFR/1.73 sq M predicted among non-blacks MDRD (S/P/Bld) [Vol rate/Area] The eGFR should be used for monitoring renal function only and not for medication dosing. [facility] GFR/1.73 sq M.predicted CKD-EPI (S/P/Bld) [Vol rate/Area] 146 >=60 mL/min/1.73 m2 [facility] Glucose [Mass/Vol] 102 mg/dL High 65 - 99 mg/dL [facility] HCO3 [Moles/Vol] 25 mmol/L 21 - 32 mmol/L [facility] Interpretation and review of laboratory results Abnormal [facility] Potassium [Moles/Vol] 4.1 mmol/L 3.5 - 5.1 mmol/L [facility] Sodium [Moles/Vol] 138 mmol/L 135 - 145 mmol/L [facility] Urea nitrogen [Mass/Vol] 5 mg/dL Low 8 - 25 mg/dL [facility] Urea nitrogen/Creatinine [Mass ratio] 13.9 mg/mg [facility] Hepatic Function Panelon Albumin [Mass/Vol] 3.3 g/dL 3.2 - 5.2 g/dL [facility] ALP [Catalytic activity/Vol] 253 U/L High 40 - 140 U/L [facility] ALT [Catalytic activity/Vol] 686 U/L High 0 - 40 U/L [facility] AST [Catalytic activity/Vol] 349 U/L High 0 - 45 U/L [facility] Bilirubin [Mass/Vol] 6.0 mg/dL High 0 - 1.3 mg/dL [facility] Bilirubin.conjugated [Mass/Vol] 5.1 mg/dL High 0 - 0.4 mg/dL [facility] Interpretation and review of laboratory results Abnormal [facility] Protein [Mass/Vol] 6.8 g/dL 6 - 8 g/dL [facility] alth Bilirubin, Directon 06-16-19 20 Bilirubin.conjugated [Mass/Vol] 5.4 mg/dL High 0 - 0.4 mg/dL [facility] Interpretation and review of laboratory results Abnormal [facility] CBCon 06-16-2019 Erythrocyte distribution width (RBC) [Entitic vol] 15.1 % High 11.6 - 14.8 % [facility] Hematocrit (Bld) [Volume fraction] 38.5 % 36 - 46 % [facility] Hemoglobin (Bld) [Mass/Vol] 12.9 g/dL 12 - 16 g/dL [facility] Interpretation and review of laboratory results Abnormal [facility] MCH (RBC) [Entitic mass] 29.1 pg 26 - 34 pg [facility] MCHC (RBC) [Mass/Vol] 33.5 g/dL 31 - 3 7 g/dL [facility] MCV (RBC) [Entitic vol] 86.9 fL 80 - 100 fL [facility] Nucleated RBC (Bld) [#/Vol] 0.00 10*3/uL [facility] Nucleated RBC/100 WBC (Bld) [Ratio] 0.0 % [facility] Platelet mean volume (Bld) [Entitic vol] 11.3 fL 9 - 15.5 fL [facility] Platelets (Bld) [#/Vol] 185 10*3/uL [facility] RBC (Bld) [#/Vol] 4.43 10*6/uL [facility] WBC (Bld) [#/Vol] 6.48 10*3/uL [facility] Comprehensive Metabolic Pane [place] 06-16-2019 Albumin [Mass/Vol] 3.3 g/dL 3.2 - 5.2 g/dL [facility] ALP [Catalytic activity/Vol] 217 U/L High 40 - 140 U/L [facility] ALT [Catalytic activity/Vol] 825 U/L High 0 - 40 U/L [facility] Anion gap [Moles/Vol] 14 mmol/L 10 - 2 0 mmol/L [facility] AST [Catalytic activity/Vol] 544 U/L High 0 - 45 U/L [facility] Bilirubin [Mass/Vol] 5.9 mg/dL High 0 - 1.3 mg/dL [facility] Calcium [Mass/Vol] 8.4 mg/dL 8.4 - 10. 2 mg/dL [facility] Chloride [Moles/Vol] 103 mmol/L 98 - 10 8 mmol/L [facility] Creatinine [Mass/Vol] 0.32 mg/dL Low 0.40 - 1.10 [facility] GFR/1.73 sq M predicted among non-blacks MDRD (S/P/Bld) [Vol rate/Area] The eGFR should be used for monitoring renal function only and not for medication dosing. [facility] GFR/1.73 sq M.predicted CKD-EPI (S/P/Bld) [Vol rate/Area] 152 >=60 mL/min/1.73 m2 [facility] Glucose [Mass/Vol] 92 mg/dL 65 - 99 mg/dL [facility] HCO3 [Moles/Vol] 26 mmol/L 21 - 32 mmol/L [facility] Interpretation and review of laboratory results Abnormal [facility] Potassium [Moles/Vol] 4.3 mmol/L 3.5 - 5.1 mmol/L [facility] Protein [Mass/Vol] 6.2 g/dL 6 - 8 g/dL [facility] Sodium [Moles/Vol] 139 mmol/L 135 - 145 mmol/L [facility] Urea nitrogen [Mass/Vol] 4 mg/dL Low 8 - 25 mg/dL [facility] Urea nitrogen/Creatinine [Mass ratio] 12.5 mg/mg [facility] Bilirubin, Directon 06-15-19 20 Bilirubin.conjugated [Mass/Vol] 4.7 mg/dL High 0 - 0.4 mg/dL [facility] Interpretation and review of laboratory results Abnormal [facility] CBCon 06-15-2019 Erythrocyte distribution width (RBC) [Entitic vol] 14.8 % 11.6 - 14.8 % [facility] Hematocrit (Bld) [Volume fraction] 38.5 % 36 - 46 % [facility] Hemoglobin (Bld) [Mass/Vol] 12.6 g/dL 12 - 16 g/dL [facility] MCH (RBC) [Entitic mass] 29.0 pg 26 - 34 pg [facility] MCHC (RBC) [Mass/Vol] 32.7 g/dL 31 - 3 7 g/dL [facility] MCV (RBC) [Entitic vol] 88.5 fL 80 - 100 fL [facility] Nucleated RBC (Bld) [#/Vol] 0.00 10*3/uL [facility] Nucleated RBC/100 WBC (Bld) [Ratio] 0.0 % [facility] Platelet mean volume (Bld) [Entitic vol] 11.0 fL 9 - 15.5 fL [facility] Platelets (Bld) [#/Vol] 155 10*3/uL [facility] RBC (Bld) [#/Vol] 4.35 10*6/uL [facility] WBC (Bld) [#/Vol] 5.74 10*3/uL [facility] Comprehensive Metabolic Pane cayden 06-15-2019 Albumin [Mass/Vol] 3.2 g/dL 3.2 - 5.2 g/dL [facility] ALP [Catalytic activity/Vol] 193 U/L High 40 - 140 U/L [facility] ALT [Catalytic activity/Vol] 888 U/L High 0 - 40 U/L [facility] Anion gap [Moles/Vol] 15 mmol/L 10 - 2 0 mmol/L [facility] AST [Catalytic activity/Vol] 667 U/L High 0 - 45 U/L [facility] Bilirubin [Mass/Vol] 5.2 mg/dL High 0 - 1.3 mg/dL [facility] Calcium [Mass/Vol] 8.2 mg/dL Low 8.4 - 10. 2 mg/dL [facility] Chloride [Moles/Vol] 103 mmol/L 98 - 10 8 mmol/L [facility] Creatinine [Mass/Vol] 0.36 mg/dL Low 0.40 - 1.10 [facility] GFR/1.73 sq M predicted among non-blacks MDRD (S/P/Bld) [Vol rate/Area] The eGFR should be used for monitoring renal function only and not for medication dosing. [facility] GFR/1.73 sq M.predicted CKD-EPI (S/P/Bld) [Vol rate/Area] 146 >=60 mL/min/1.73 m2 [facility] Glucose [Mass/Vol] 122 mg/dL High 65 - 99 mg/dL [facility] HCO3 [Moles/Vol] 22 mmol/L 21 - 32 mmol/L [facility] Interpretation and review of laboratory results Abnormal [facility] Potassium [Moles/Vol] 3.8 mmol/L 3.5 - 5.1 mmol/L [facility] Protein [Mass/Vol] 5.8 g/dL Low 6 - 8 g/dL [facility] Sodium [Moles/Vol] 136 mmol/L 135 - 145 mmol/L [facility] Urea nitrogen [Mass/Vol] 5 mg/dL Low 8 - 25 mg/dL [facility] Urea nitrogen/Creatinine [Mass ratio] 13.9 mg/mg [facility] [place] HEPATOBILIARY WO EJECTION FRACTIONon 06-15-2019 EXAMINATION: [...] tree, and small bowel are not visualized. [facility] Opacified liver with no visualization of the [...] regarding the presence or absence of cholecystitis. [facility] Workstation ID: [id number] [facility] Interface, Rad In [employer] Speechq - 06/15/2019 [...] regarding the presence or absence of cholecystitis. [facility] Workstation ID: [id number] [facility] APTTon 06-14-2019 aPTT Coag (Bld) [Time] 31.1 s [facility] [place] [place] Comment on above: PTT Therapeutic Range: 61.7-88.4 Therapeutic range corresponds to plasma heparin levels of 0.3-0.7 U/mL. Acetaminophen Levelon 2019 Acetaminophen [Mass/Vol] 9.1 [facility] Interpretation and review of laboratory results Normal [facility] Bilirubin, Directon 06-14-19 20 Bilirubin.conjugated [Mass/Vol] 4.3 mg/dL High 0 - 0.4 mg/dL [facility] Interpretation and review of laboratory results Abnormal [facility] CBC WITH AUTO DIFFERENTIALon 06-14-2019 Erythrocyte distribution width (RBC) [Entitic vol] 14.5 % 11.6 - 14.8 % [facility] Hematocrit (Bld) [Volume fraction] 34.6 % Low 36 - 46 % [facility] Hemoglobin (Bld) [Mass/Vol] 11.6 g/dL Low 12 - 16 g/dL [facility] Interpretation and review of laboratory results Abnormal [facility] MCH (RBC) [Entitic mass] 29.7 pg 26 - 34 pg [facility] MCHC (RBC) [Mass/Vol] 33.5 g/dL 31 - 3 7 g/dL [facility] MCV (RBC) [Entitic vol] 88.5 fL 80 - 100 fL [facility] Nucleated RBC (Bld) [#/Vol] 0.00 10*3/uL [facility] Nucleated RBC/100 WBC (Bld) [Ratio] 0.0 % [facility] Platelet mean volume (Bld) [Entitic vol] 10.8 fL 9 - 15.5 fL [facility] Platelets (Bld) [#/Vol] 172 10*3/uL [facility] RBC (Bld) [#/Vol] 3.91 10*6/uL Low [facility] WBC (Bld) [#/Vol] 7.28 10*3/uL [facility] ealth CT ABDOMEN PELVIS W IV CONTR AST Additional Contrast? Noneon 06-14-2019 [place], [place] Incoming Radiant Results From Results Scorecard/YEVVO - 06/14/2019 12:27 AM EDT EXAMINATION: CT [...] liver function panel and consider ultrasound imaging. [place] Pericholecystic fluid versus gallbladder wall thickening and additional periportal edema. There are no visualized stones in the gallbladder gallbladder and/or hepatic pathology are suspected. Correlate with liver function panel and consider ultrasound imaging. [place] EXAMINATION: CT ABDOMEN PELVIS W IV [...] structures demonstrate no acute or concerning abnormality. [place] COMPARISON IMPORTon 06-13 This order has been auto-finalized and does not contain a result. [facility] Metabolic Pane cayden 06-14-2019 Albumin [Mass/Vol] 3.0 g/dL Low 3.2 - 5.2 g/dL [facility] ALP [Catalytic activity/Vol] 183 U/L High 40 - 140 U/L [facility] ALT [Catalytic activity/Vol] 808 U/L High 0 - 40 U/L [facility] Anion gap [Moles/Vol] 16 mmol/L 10 - 2 0 mmol/L [facility] AST [Catalytic activity/Vol] 592 U/L High 0 - 45 U/L [facility] Bilirubin [Mass/Vol] 4.9 mg/dL High 0 - 1.3 mg/dL [facility] Calcium [Mass/Vol] 8.4 mg/dL 8.4 - 10. 2 mg/dL [facility] Chloride [Moles/Vol] 104 mmol/L 98 - 10 8 mmol/L [facility] Creatinine [Mass/Vol] 0.43 mg/dL 0.40 - 1.10 [facility] GFR/1.73 sq M predicted among non-blacks MDRD (S/P/Bld) [Vol rate/Area] The eGFR should be used for monitoring renal function only and not for medication dosing. [facility] GFR/1.73 sq M.predicted CKD-EPI (S/P/Bld) [Vol rate/Area] 138 >=60 mL/min/1.73 m2 [facility] Glucose [Mass/Vol] 79 mg/dL 65 - 99 mg/dL [facility] HCO3 [Moles/Vol] 21 mmol/L 21 - 32 mmol/L [facility] Interpretation and review of laboratory results Abnormal [facility] Potassium [Moles/Vol] 3.8 mmol/L 3.5 - 5.1 mmol/L [facility] Protein [Mass/Vol] 5.7 g/dL Low 6 - 8 g/dL [facility] alth Sodium [Moles/Vol] 137 mmol/L 135 - 145 mmol/L [facility] Urea nitrogen [Mass/Vol] 9 mg/dL 8 - 25 mg/dL [facility] Urea nitrogen/Creatinine [Mass ratio] 20.9 mg/mg High [facility] DRUGS OF ABUSE SCREEN, URINE on 06-14-2019 Amphetamines Ql (U) None Detected None Detected [facility] Comment on above: Urine Amphetamine Cu toff: < 1000 ng/mL = None Detected Barbiturates Screen Ql (U) None Detected None Detected [facility] Comment on above: Urine Barbiturates C utoff: < 200 ng/mL = None Detected Benzodiazepines Ql (U) None Detected None Detected [facility] Comment on above: Urine Benzodiazepine Cutoff: < 300 ng/mL = None Detected Cannabinoids Screen Ql (U) None Detected None Detected [facility] Comment on above: Urine Cannabinoids C utoff: < 50 ng/mL = None Detected Cocaine Ql (U) Positive Abnormal None Detected [facility] Comment on above: Urine Cocaine Cutoff : < 300 ng/mL = None Detected Interpretation and review of laboratory results Abnormal [facility] Methadone Screen Ql (U) None Detected Non e Detected [facility] Comment on above: Urine Methadone Cuto ff: < 300 ng/mL = None Detected Opiates Screen Ql (U) None Detected None Detected [facility] Comment on above: Urine Opiates Cutoff : < 300 ng/mL = None Detected Oxycodone Ql (U) None Detected None Detected [facility] Comment on above: Urine Oxycodone Cuto ff: < 100 ng/mL = None Detected Screen results should be used for treatment purposes only. Specimen will be kept for 2 weeks, if the sample is adequate. Confirmation testing can be initiated by calling the lab within 2 weeks. [facility] HEPATITIS PANEL, ACUTEon HAV IgM Ql (S) Negative Negative [facility] HBV core IgM Ql (S) Negative Negative [facility] HBV surface Ag Ql (S) Negative Negative [facility] HCV Ab Ql (S) Positive Abnormal Negative [facility] Comment on above: A positive antibody test requires additional follow-up testing, Hepatitis C Virus Quantitation, to determine if a person is currently infected with Hepatitis C. Interpretation and review of laboratory results Abnormal [facility] Test performed using Constantin DEVIKA immunoassay system [facility] Lactic Acid, Plasmaon 2019 Interpretation and review of laboratory results Normal [facility] Lactate [Moles/Vol] 0.8 mmol/L 0.6 - 2 mmol/L [facility] MORPHOLOGYon 06-14-2019 Platelets LM Ql (Bld) Normal Normal [facility] RBC morphology finding Nom (Bld) Normal [facility] MRCPon 06-14-2019 EXAMINATION: MR MRCP 03/15/2024 HISTORY: [...] Axial T1-weighted images were obtained in- and ops-gg-qhbpy. Axial diffusion-weighted imaging was also performed. FINDINGS: The liver overall appears enlarged with the right hepatic lobe measuring 22.6 cm pxgngzdm-la-ndoopuh r. The spleen measures 14.6 cm alumadyf-gg-xjtmioh r and is also mildly enlarged. There [...] the right kidney. Bowel pattern is nonobstructive. [facility] 1. Re-demonstration of diffuse periportal edema as well as significant circumferential gallbladder wall edema similar to that seen on prior CT study. 2. Mild hepatosplenomegaly. 3. No obvious gallstones. Negative for biliary or pancreatic ductal dilatation. Negative for choledocholithiasis . 4. Trace volume of abdominal ascites. [employer] Workstation ID: [id number] [facility] Interface, Rad In Asif Parhamq - 06/14/2019 [...] Axial T1-weighted images were obtained in- and opg-dt-jeosa. Axial diffusion-weighted imaging was also performed. FINDINGS: The liver overall appears enlarged with the right hepatic lobe measuring 22.6 cm udnrffjb-jf-ajpyezp r. The spleen measures 14.6 cm oshunesv-sr-mgaolei r and is also mildly enlarged. There [...] . 4. Trace volume of abdominal ascites. [employer] Workstation ID: [id number] [facility] Manual Differentialon 2019 Basophils (Bld) [#/Vol] 0.00 10*3/uL [facility] Basophils/100 WBC (Bld) 0.0 % [facility] Eosinophils (Bld) [#/Vol] 0.00 10*3/uL [facility] Eosinophils/100 WBC (Bld) 0.0 % [facility] Lymphocytes (Bld) [#/Vol] 3.28 10*3/uL [facility] Lymphocytes/100 WBC (Bld) 37.0 % [facility] Monocytes (Bld) [#/Vol] 0.44 10*3/uL [facility] Monocytes/100 WBC (Bld) 6.0 % [facility] Neutrophils (Bld) [#/Vol] 3.57 10*3/uL [facility] Neutrophils/100 WBC (Bld) 49.0 % [facility] Variant lymphocytes/100 WBC (Bld) 8.0 % [facility] PT/INRon 06-14-2019 INR Coag (PPP) [Relative time] 1.3 {INR} High [facility] Interpretation and review of laboratory results Abnormal [facility] PT Coag (PPP) [Time] 15.5 s [facility] During the induction phase of oral anticoagulation, the INR may not reflect the anticoagulation status of the patient. Therapeutic ranges for INR's are: Most clinical situations: INR 2.0-3.0 Mechanical Prosthetic Valve: INR 2.5-3.5 Critical: INR >5.0 [facility] Protime-INRon 06-14-2019 INR Coag (PPP) [Relative time] 1.2 {INR} [place] Comment on above: * THERAPY INDICATIONS * REFERENCE RANGES Pts not on anti-coagulants 1.0 - 1.5 INR Low risk pts on anti-coagulants 2.0 - 3.0 INR High risk pts on anti-coagulants 2.5 - 3.5 INR Prevention of atrial thrombo-embolism 3.0 - 4.5 INR Interpretation and review of laboratory results Abnormal [place] PT Coag (PPP) [Time] 11.7 s [place] Salicylate Levelon 0 Interpretation and review of laboratory results Abnormal [facility] Salicylates [Mass/Vol] mg/dL Low 10 - 20 mg/dL [facility] URINALYSISon 06-14-2019 Bacteria Auto Ql (U) Rare Abnormal None Se en /hpf [facility] Bilirubin Ql (U) Positive Abnormal Negative [facility] Comment on above: False positive urine bilirubins can occur in the setting of a large amount of hemoglobin and secondary to medications including anti-inflammatory agents, rifampin, and pyridium. Clarity Refractometry automated (U) Clear Clear [facility] Color (U) Erica Abnormal Colorless, Yellow [facility] Epithelial cells.squamous Auto (Urine sed) [#/Area] 4 [place] [facility] Glucose Auto test strip (U) [Mass/Vol] Negative Negative mg/dL [facility] Hemoglobin Auto test strip Ql (U) Negative Negative [facility] Interpretation and review of laboratory results Abnormal [facility] Ketones (U) [Mass/Vol] >=80 Abnormal Negat krystal mg/dL [facility] Leukocyte esterase Auto test strip Ql (U) Negative Negative [facility] Mucus Auto (Urine sed) [#/Area] Rare None Seen, Rare /lpf [facility] Nitrite Auto test strip Ql (U) Negative Negative [facility] pH (U) 6.0 [pH] [facility] Protein (U) [Mass/Vol] 30 Abnormal Negat krystal mg/dL [facility] Comment on above: False positive resul ts may occur in urines with large amounts of hemoglobin, pH greater than 8.0, contrast medium, or disinfectants including ammonium compounds. RBC Auto (Urine sed) [#/Area] 2 [facility] Specific gravity (U) [Rel density] 1.028 High [facility] Urobilinogen (U) [Mass/Vol] >=4.0 Abnormal <2.0 mg/dL [facility] WBC Auto (Urine sed) [#/Area] 2 [facility] Microscopic examination is performed on all urinalysis samples and only positive findings are reported. The test for blood on the chemical analytic portion of urinalysis may also be positive due to hemoglobinuria and myoglobinuria and if red blood cells are present they are quantified by microscopic examination. [facility] US ABDOMEN LIMITED STUDYon 0 06-14-2019 Interface, [...] liver likely small hemangioma. Workstation ID: [id number] [facility] EXAMINATION: US ABDOMEN LIMITED STUDY HISTORY: RUQ [...] measures 10.7 cm in length. No hydronephrosis. [facility] 1. Contracted gallbladder limits evaluation. No cholelithiasis identified. Nonspecific edematous gallbladder wall thickening and reported positive sonographic Short's sign, cannot exclude acalculus cholecystitis. No biliary ductal dilatation. 2. 1.3 cm echogenic lesion left lobe of the liver likely small hemangioma. Workstation ID: [id number] [facility] Amylaseon 06-13-2019 Amylase [Catalytic activity/Vol] 22 U/L Low 28 - 100 U/L [facility] CBC Auto Differentialon Basophils (Bld) [#/Vol] 0.00 10*3/uL [place] Basophils/100 WBC (Bld) 1 % 0 - 2 % [place] Differential Type YES [place] Eosinophils (Bld) [#/Vol] 0.00 10*3/uL [place] Eosinophils/100 WBC (Bld) 0 % 0 - 5 % [place] Erythrocyte distribution width (RBC) [Ratio] 14.9 % 12.1 - 15.2 % [place] Hematocrit (Bld) [Volume fraction] 43.3 % 36 - 46 % [place] Hemoglobin (Bld) [Mass/Vol] 14.3 g/dL 12 - 16 g/dL [place] Lymphocytes (Bld) [#/Vol] 2.50 10*3/uL [place] Lymphocytes/100 WBC (Bld) 30 % 15 - 40 % [place] MCH (RBC) [Entitic mass] 28.8 pg 26 - 34 pg [place] MCHC (RBC) [Mass/Vol] 33.1 g/dL 31 - 3 7 g/dL [place] MCV (RBC) [Entitic vol] 87.2 fL 80 - 100 fL [place] Monocytes (Bld) [#/Vol] 0.70 10*3/uL [place] Monocytes/100 WBC (Bld) 8 % 4 - 8 % [place] Platelet mean volume (Bld) [Entitic vol] NOT REPORTED 6 - 12 fL [place] Platelets (Bld) [#/Vol] 203 10*3/uL [place] Platelets (Bld) [#/Vol] NOT REPORTED [place] RBC (Bld) [#/Vol] 4.97 10*6/uL 4 - 5.2 m/uL [place] RBC morphology finding Nom (Bld) NOT REPORTED [place] Segmented neutrophils/100 WBC (Bld) 61 % 47 - 75 % [place] Segs Absolute 5.20 [place] WBC (Bld) [#/Vol] 8.4 10*3/uL [place] WBC (Bld) [#/Vol] NOT REPORTED per 100 WBC [place] WBC Morphology NOT REPORTED [place] Comprehensive Metabolic Pane l w/ Reflex to MGon 06-13-2019 Albumin [Mass/Vol] 4.1 g/dL 3.5 - 5.2 g/dL [place] Albumin/Globulin [Mass ratio] NOT REPORTED [place] ALP [Catalytic activity/Vol] 255 U/L High 35 - 104 U/L [place] ALT [Catalytic activity/Vol] 1116 U/L High 5 - 33 U/L [place] Anion gap [Moles/Vol] 17 mmol/L 9 - 17 mmol/L [place] AST [Catalytic activity/Vol] 665 U/L High <32 [place] Bilirubin Ql (U) 6.52 mg/dL High 0.3 - 1.2 mg/dL [place] Bun/Cre Ratio 17 [place] Calcium [Mass/Vol] 10.1 mg/dL 8.6 - 10. 4 mg/dL [place] Chloride [Moles/Vol] 95 mmol/L Low 98 - 10 7 mmol/L [place] CO2 [Moles/Vol] 24 mmol/L 20 - 31 mmol/L [place] Creatinine [Mass/Vol] 0.82 mg/dL 0.5 - 0.9 mg/dL [place] GFR >60 >60 mL/min [place] GFR Non- >60 >60 mL/min [place] GFR/1.73 sq M predicted among non-blacks MDRD (S/P/Bld) [Vol rate/Area] [place] Comment on above: Average GFR for 20-2 9 years old: 116 mL/min/1.73sq m Chronic Kidney Disease: <60 mL/min/1.73sq m Kidney failure: <15 mL/min/1.73sq m eGFR calculated using average adult body mass. Additional eGFR calculator available at: http://[email or web address].CloudRunner I/O/multiple_crcl_2012.htm GFR/1.73 sq M predicted among non-blacks MDRD (S/P/Bld) [Vol rate/Area] NOT REPORTED [place] Glucose [Mass/Vol] 134 mg/dL High 70 - 99 mg/dL [place] Interpretation and review of laboratory results Abnormal [place] Potassium [Moles/Vol] 3.7 mmol/L 3.7 - 5.3 mmol/L [place] Protein [Mass/Vol] 8.1 g/dL 6.4 - 8.3 g/dL [place] Sodium [Moles/Vol] 136 mmol/L 135 - 144 mmol/L [place] Urea nitrogen [Mass/Vol] 14 mg/dL 6 - 20 mg/dL [place] Drug screen multi urineon Amphetamine Screen, Ur Negative NEGATIVE [place] Comment on above: (Positive cutoff 500 ng/mL) Barbiturate Screen, Ur Negative NEGATIVE [place] Comment on above: (Positive cutoff 200 ng/mL) Benzodiazepine Screen, Urine Negative NEGATIVE [place] Comment on above: (Positive cutoff 150 ng/mL) Buprenorphine Urine NOT REPORTED NEGATIVE [place] Cannabinoid Scrn, Ur Negative NEGATIVE [place] Comment on above: (Positive cutoff 50 ng/mL) Cocaine Metabolite, Urine Positive Abnormal NEGATIVE [place] Comment on above: (Positive cutoff 150 ng/mL) Interpretation and review of laboratory results Abnormal [place] MDMA, Urine NOT REPORTED NEGATIVE [place] Methadone Screen, Urine Negative NEGATIVE [place] Comment on above: (Positive cutoff 200 ng/mL) Methamphetamine, Urine Negative NEGATIVE [place] Comment on above: (Positive cutoff 500 ng/mL) Opiates, Urine Positive Abnormal NEGATIVE [place] Comment on above: (Positive cutoff 100 ng/mL) Oxycodone Screen, Ur Negative NEGATIVE [place] Comment on above: (Positive cutoff 100 ng/mL) Phencyclidine, Urine Negative NEGATIVE [place] Comment on above: (Positive cutoff 25 ng/mL) Propoxyphene, Urine Negative NEGATIVE [place] Comment on above: (Positive cutoff 300 ng/mL) Test Information NOT REPORTED [place] Tricyclic Antidepressants, Urine Negative NEGATIVE [place], [place] Comment on above: (Positive cutoff 300 ng/mL) Drug screen results are to be used for medical purposes only. All positive results are unconfirmed. Testing for employment or legal uses should be sent to a reference laboratory for confirmation. Lactic Acidon 06-13-2019 Lactate [Moles/Vol] 1.2 mmol/L 0.5 - 2. 2 mmol/L [place] Lipaseon 06-13-2019 Lipase [Catalytic activity/Vol] 8 U/L Low 13 - 60 U/L [place] Microscopic Urinalysison Amorphous, UA NOT REPORTED None [place], [place] Bacteria, UA 2+ Abnormal None [place] Casts UA 5 TO 10 HYALINE /LPF [place] Casts UA 2 TO 5 WAXY /LPF [place] Crystals, UA NOT REPORTED None /HPF [place] Epithelial Cells UA LOADED /HPF [place] Interpretation and review of laboratory results Abnormal [place] Mucus, UA 4+ Abnormal None [place] Other Observations UA NOT REPORTED NOT REQ. [place] RBC (U) [#/Vol] 5 TO 10 [place], [place] Renal Epithelial, UA NOT REPORTED 0 /HPF [place] Trichomonas, UA NOT REPORTED None [facility] [place] WBC, UA 10 TO 20 0 /HPF [place] Yeast, UA NOT REPORTED None [place] - [place] Otheron 06-13-2019 Interpretation and review of laboratory results Abnormal [place] Immature granulocytes (Bld) [#/Vol] NOT REPORTED 0 % [place] , Urineon 0 Beta HCG ( test) Ql (U) Negative NEGATIVE [facility] [place], [place] Urinalysis, reflex to micros copicon 06-13-2019 Bilirubin Urine 3+ Abnormal [facility] [place] [place] Color, UA BROWN Abnormal YELLOW [facility], [place] Glucose, Ur Negative NEGATIVE [facility] Interpretation and review of laboratory results Abnormal [facility] [place] Ketones Ql (U) MODERATE Abnormal NEGATIVE [facility] [place] Leukocyte esterase Test strip Ql (U) 1+ Abnormal NEGATIVE [facility] Nitrite, Urine Positive Abnormal NEGATIVE [facility], [place] pH, UA 5.0 [facility] Protein (U) [Mass/Vol] 1+ Abnormal NEGATIVE Me [facility] [place] Specific [place], UA 1.020 [facility], [place] Turbidity UA CLEAR CLEAR [facility], [place] Urinalysis Comments [facility] Urine Hgb TRACE Abnormal NEGATIVE [facility] Urobilinogen, Urine 12 mg/dL Abnormal Normal [facility] Vital Signs Date Time Vital Sign Value Performing Clinician Facility 12-07-2023 14:34-0400 Body mass index (BMI) [Ratio] 44.8 kg/m2 [employer] Work Phone: [facility] 12-07-2023 14:34-0400 Body weight 118.39 kg Mark [employer] Work Phone: [facility] 12-07-2023 14:34-0400 Diastolic blood pressure 70 mm[Hg] [employer] Work Phone: [facility] 12-07-2023 14:34-0400 Systolic blood pressure 110 mm[Hg] Mark [employer] Work Phone: [facility] 10-05-2023 21:00-0400 Body temperature 99.61 [degF] Violet Juarez MD Work Phone: [employer] [facility] [employer] 10-05-2023 21:00-0400 Diastolic blood pressure 68 mm[Hg] Violet Juarez MD [facility] Phone[facility] 10-05-2023 21:00-0400 Heart rate 93 /min Violet Juarez MD Work Phone: [facility] [employer] [facility] 10-05-2023 21:00-0400 Respiratory rate 16 /min Violet Juarez MD [facility] Phone: [facility] 10-05-2023 21:00-0400 SaO2% (BldA) [Mass fraction] 97 % Violet Juarez MD Work Phone: [facility] 10-05-2023 21:00-0400 Systolic blood pressure 114 mm[Hg] Violet Juarez MD Work Phone: [facility] 05-13-2023 11:27-0500 Body temperature 98.6 [degF] [facility] 05-13-2023 11:27-0500 Diastolic blood pressure 78 mm[Hg] [facility] 05-13-2023 11:27-0500 Heart rate 83 /min [facility] 05-13-2023 11:27-0500 Respiratory rate 18 /min [facility] 05-13-2023 11:27-0500 SaO2% (BldA) [Mass fraction] 97 % [facility] 05-13-2023 11:27-0500 Systolic blood pressure 113 mm[Hg] [facility] 05-11-2023 21:49-0500 Body temperature 98.06 [degF] [facility] 05-11-2023 21:49-0500 Diastolic blood pressure 84 mm[Hg] [facility] 05-11-2023 21:49-0500 Heart rate 105 /min [facility] 05-11-2023 21:49-0500 Respiratory rate 17 /min [facility] 05-11-2023 21:49-0500 SaO2% (BldA) [Mass fraction] 97 % [facility] 05-11-2023 21:49-0500 Systolic blood pressure 130 mm[Hg] [facility] 05-10-2023 11:41-0500 Body height 160 cm Chet Berumen DO Work Phone: [facility] [email or web address] 05-10-2023 11:41-0500 Body mass index (BMI) [Ratio] 44.29 kg/m2 Chet Berumen DO Work Phone: [facility] [email or web address] 05-10-2023 11:41-0500 Body temperature 97.9 [degF] Chet Berumen DO Work Phone: [facility] [email or web address] 05-10-2023 11:41-0500 Body weight 113.4 kg Chet Berumen DO Work Phone: [employer] 05-10-2023 11:41-0500 Diastolic blood pressure 76 mm[Hg] Chet Berumen DO Work Phone: [facility] [email or web address] 05-10-2023 11:41-0500 Heart rate 94 /min Chet Berumen DO Work Phone: [facility] [email or web address] 05-10-2023 11:41-0500 Respiratory rate 18 /min Chet Berumen DO Work Phone: [facility] [email or web address] 05-10-2023 11:41-0500 SaO2% (BldA) [Mass fraction] 96 % Chte Berumen DO Work Phone: [employer] 05-10-2023 11:41-0500 Systolic blood pressure 146 mm[Hg] Chet Berumen DO Work Phone: [employer] 09-04-2022 11:27-0400 Body height 160 cm Erin Lacy MD Work Phone: [employer] 09-04-2022 11:27-0400 Body mass index (BMI) [Ratio] 44.99 kg/m2 Erin Lacy MD Work Phone: [employer] 09-04-2022 11:27-0400 Body temperature 98.2 [degF] Erin Lacy MD Work Phone: [employer] 09-04-2022 11:27-0400 Body weight 115.21 kg Erin Lacy MD Work Phone: [employer] 09-04-2022 11:27-0400 Diastolic blood pressure 71 mm[Hg] Erin Lacy MD Work Phone: [employer] 09-04-2022 11:27-0400 Heart rate 88 /min Erin Lacy MD Work Phone: [employer] 09-04-2022 11:27-0400 Respiratory rate 18 /min Erin Lacy MD Work Phone: [employer] 09-04-2022 11:27-0400 SaO2% (BldA) [Mass fraction] 97 % Erin Lacy MD Work Phone: [employer] 09-04-2022 11:27-0400 Systolic blood pressure 124 mm[Hg] Erin Lacy MD Work Phone: [employer] 06-29-2022 09:49-0400 Diastolic blood pressure 57 mm[Hg] [facility] 06-29-2022 09:49-0400 Heart rate 73 /min [facility] 06-29-2022 09:49-0400 Mean blood pressure 76 mm[Hg] [facility] 06-29-2022 09:49-0400 Respiratory rate 16 /min [facility] 06-29-2022 09:49-0400 Systolic blood pressure 113 mm[Hg] [facility] 05-19-2022 19:28-0400 Body height 160 cm Erin Lacy MD Work Phone: [employer] 05-19-2022 19:28-0400 Body mass index (BMI) [Ratio] 45.17 kg/m2 Erin Lacy MD Work Phone: [employer] 05-19-2022 19:28-0400 Body weight 115.67 kg Erin Lacy MD Work Phone: [employer] 05-19-2022 19:25-0400 Body temperature 98.29 [degF] Erin Lacy MD Work Phone: [employer] 05-19-2022 19:25-0400 Diastolic blood pressure 68 mm[Hg] Erin Lacy MD Work Phone: [employer] 05-19-2022 19:25-0400 Heart rate 78 /min Erin Lacy MD Work Phone: [employer] 05-19-2022 19:25-0400 Respiratory rate 16 /min Erin Lacy MD Work Phone: [employer] 05-19-2022 19:25-0400 SaO2% (BldA) [Mass fraction] 98 % Erin Lacy MD Work Phone: [employer] 05-19-2022 19:25-0400 Systolic blood pressure 110 mm[Hg] Erin Lacy MD Work Phone: [employer] 05-11-2022 19:17-0500 Body height 160 cm Anuj Quinn MD Work Phone: [employer] 05-11-2022 19:17-0500 Body mass index (BMI) [Ratio] 45.06 kg/m2 Anuj Quinn MD Work Phone: [employer] 05-11-2022 19:17-0500 Body temperature 98.01 [degF] Anuj Quinn MD Work Phone: [employer] 05-11-2022 19:17-0500 Body weight 115.39 kg Anuj Quinn MD Work Phone: [employer] [facility] [employer] 05-11-2022 19:17-0500 Diastolic blood pressure 91 mm[Hg] Anuj Quinn MD Work Phone: [employer] 05-11-2022 19:17-0500 Heart rate 78 /min Anuj Quinn MD Work Phone: [employer] 05-11-2022 19:17-0500 Respiratory rate 18 /min Anuj Quinn MD Work Phone: [employer] 05-11-2022 19:17-0500 SaO2% (BldA) [Mass fraction] 96 % Anuj Quinn MD Work Phone: [employer] 05-11-2022 19:17-0500 Systolic blood pressure 121 mm[Hg] Anuj Quinn MD Work Phone: [employer] 10-12-2021 18:31-0400 Heart rate 93 /min Rishabh Mancini MD Work Phone: [employer] 10-12-2021 18:31-0400 Respiratory rate 16 /min Rishabh Mancini MD Work Phone: [employer] 10-12-2021 18:31-0400 SaO2% (BldA) [Mass fraction] 97 % Rishabh Mancini MD Work Phone: [employer] 10-12-2021 18:12-0400 Body height 160 cm Rishabh Mancini MD Work Phone: [employer] 10-12-2021 18:12-0400 Body mass index (BMI) [Ratio] 47.12 kg/m2 Rishabh Mancini MD Work Phone: [employer] 10-12-2021 18:12-0400 Body temperature 99.19 [degF] Rishabh Mancini MD Work Phone: [facility] 10-12-2021 18:12-0400 Body weight 120.66 kg Rishabh Mancini MD Work Phone: [facility] [email or web address] 10-12-2021 18:12-0400 Diastolic blood pressure 77 mm[Hg] Rishabh Mancini MD Work Phone: [facility] 10-12-2021 18:12-0400 Systolic blood pressure 126 mm[Hg] Rishabh Mancini MD Work Phone: [facility] 07-22-2021 10:38-0400 Body height 160 cm [facility] 07-22-2021 10:38-0400 Body mass index (BMI) [Ratio] 47.63 kg/m2 Clark Moser MD Work Phone: [employer] 07-22-2021 10:38-0400 Body temperature 97.3 [degF] Clark Moser MD Work Phone: [employer] 07-22-2021 10:38-0400 Body weight 121.97 kg Clark Moser MD Work Phone: [employer] 07-22-2021 10:38-0400 Diastolic blood pressure 88 mm[Hg] Clark Moser MD Work Phone: [employer] 07-22-2021 10:38-0400 Heart rate 104 /min Clark Moser MD Work Phone: [employer] 07-22-2021 10:38-0400 Respiratory rate 18 /min Clark Moser MD Work Phone: [employer] 07-22-2021 10:38-0400 SaO2% (BldA) [Mass fraction] 95 % Clark Moser MD Work Phone: [employer] 07-22-2021 10:38-0400 Systolic blood pressure 126 mm[Hg] Clark Moser MD Work Phone: [facility] 05-15-2021 09:11-0500 Body height [address] [facility] 05-14-2021 10:41-0500 Body height 160 cm Farhat Vang MD Work Phone: [facility] 05-14-2021 10:41-0500 Body mass index (BMI) [Ratio] 44.96 kg/m2 Farhat Vang MD Work Phone: [facility] 05-14-2021 10:41-0500 Body temperature 97.81 [degF] Farhat Vang MD Work Phone: [facility] 05-14-2021 10:41-0500 Body weight 115.12 kg Farhat Vang MD Work Phone: [facility] 05-14-2021 10:41-0500 Diastolic blood pressure 78 mm[Hg] Farhat Vang MD Work Phone: [facility] 05-14-2021 10:41-0500 Heart rate 98 /min Farhat Vang MD Work Phone: [facility] 05-14-2021 10:41-0500 Respiratory rate 18 /min Farhat Vang MD Work Phone: [facility] 05-14-2021 10:41-0500 SaO2% (BldA) [Mass fraction] 97 % Farhat Vang MD Work Phone: [facility] 05-14-2021 10:41-0500 Systolic blood pressure 124 mm[Hg] Farhat Vang MD Work Phone: [facility] 04-16-2021 10:15-0500 Body height 160 cm Farhat Vang MD Work Phone: [facility] 04-16-2021 10:15-0500 Body mass index (BMI) [Ratio] 44.44 kg/m2 Farhat Vang MD Work Phone: [facility] 04-16-2021 10:15-0500 Body temperature 98.01 [degF] Farhat Vang MD Work Phone: [facility] 04-16-2021 10:15-0500 Body weight 113.81 kg Farhat Vang MD Work Phone: [facility] 04-16-2021 10:15-0500 Diastolic blood pressure 78 mm[Hg] Farhat Vang MD Work Phone: [facility] 04-16-2021 10:15-0500 Heart rate 100 /min Farhat Vang MD Work Phone: [facility] 04-16-2021 10:15-0500 Respiratory rate 18 /min Farhat Vang MD Work Phone: [facility] 04-16-2021 10:15-0500 SaO2% (BldA) [Mass fraction] 96 % Farhat Vang MD Work Phone: [facility] 04-16-2021 10:15-0500 Systolic blood pressure 122 mm[Hg] Farhat Vang MD Work Phone: [facility] 03-23-2021 12:40-0500 Body height 160 cm Anuj Quinn MD Work Phone: [facility] 03-23-2021 12:40-0500 Body mass index (BMI) [Ratio] 44.46 kg/m2 Anuj Quinn MD Work Phone: [facility] 03-23-2021 12:40-0500 Body temperature 99.7 [degF] Anuj Quinn MD Work Phone: [facility] 03-23-2021 12:40-0500 Body weight 113.85 kg Anuj Quinn MD Work Phone: [facility] 03-23-2021 12:40-0500 Diastolic blood pressure 74 mm[Hg] Anuj Quinn MD Work Phone: [facility] 03-23-2021 12:40-0500 Heart rate 107 /min Anuj Quinn MD Work Phone: [employer] 03-23-2021 12:40-0500 Respiratory rate 16 /min Anuj Quinn MD Work Phone: [facility] 03-23-2021 12:40-0500 SaO2% (BldA) [Mass fraction] 96 % Anuj Quinn MD Work Phone: [facility] 03-23-2021 12:40-0500 Systolic blood pressure 131 mm[Hg] Anuj Quinn MD Work Phone: [facility] 01-15-2021 10:43-0500 Body height 160 cm Holland Ann MD Work Phone: [facility] 01-15-2021 10:43-0500 Body mass index (BMI) [Ratio] 42.55 kg/m2 Holland Ann MD Work Phone: [facility] 01-15-2021 10:43-0500 Body temperature 97.39 [degF] Holland Ann MD Work Phone: [facility] 01-15-2021 10:43-0500 Body weight 108.95 kg Holland Ann MD Work Phone: [facility] 01-15-2021 10:43-0500 Diastolic blood pressure 66 mm[Hg] Holland Ann MD Work Phone: [facility] 01-15-2021 10:43-0500 Heart rate 101 /min Holland Ann MD Work Phone: [facility] 01-15-2021 10:43-0500 SaO2% (BldA) [Mass fraction] 96 % Holland Ann MD Work Phone: [facility] 01-15-2021 10:43-0500 Systolic blood pressure 112 mm[Hg] Holland Ann MD Work Phone: [facility] 12-27-2020 18:15-0400 Body temperature 98.49 [degF] Wanye Springer MD Work Phone: [facility] [employer] Work Phone: 12-27-2020 18:15-0400 Diastolic blood pressure 77 mm[Hg] Wayne Springer MD Work Phone: [employer] Work Phone: Comment on above: Simultaneous filing. User may not have s een previous data. 12-27-2020 18:15-0400 Heart rate 98 /min Wayne Springer MD Work Phone: [employer] Work Phone: 12-27-2020 18:15-0400 Respiratory rate 20 /min Wayne Springer MD Work Phone: [employer] Work Phone: 12-27-2020 18:15-0400 SaO2% (BldA) [Mass fraction] 95 % Wayne Springer MD Work Phone: [employer] Work Phone: Comment on above: Simultaneous filing. User may not have s een previous data. 12-27-2020 18:15-0400 Systolic blood pressure 107 mm[Hg] Wayne Springer MD Work Phone: [employer] Work Phone: Comment on above: Simultaneous filing. User may not have s een previous data. 11-20-2020 21:07-0400 Body height 160 cm Anuj Quinn MD Work Phone: [employer] Work Phone: 11-20-2020 21:07-0400 Body mass index (BMI) [Ratio] 38.62 kg/m2 Anuj Quinn MD Work Phone: [employer] Work Phone: 11-20-2020 21:07-0400 Body temperature 98.6 [degF] Anuj Quinn MD Work Phone: [employer] Work Phone: 11-20-2020 21:07-0400 Body weight 98.88 kg Anuj Quinn MD Work Phone: [employer] Work Phone: 11-20-2020 21:07-0400 Diastolic blood pressure 65 mm[Hg] Anuj Quinn MD Work Phone: [employer] Work Phone: 11-20-2020 21:07-0400 Heart rate 84 /min Anuj Quinn MD Work Phone: [employer] Work Phone: 11-20-2020 21:07-0400 Respiratory rate 16 /min Anuj Quinn MD Work Phone: [employer] Work Phone: 11-20-2020 21:07-0400 SaO2% (BldA) [Mass fraction] 97 % Anuj Quinn MD Work Phone: [employer] Work Phone: 11-20-2020 21:07-0400 Systolic blood pressure 113 mm[Hg] Anuj Quinn MD Work Phone: [employer] Work Phone: 11-07-2020 16:28-0400 Body height 160 cm Nicholas Roger MD Work Phone: [employer] Work Phone: 11-07-2020 16:28-0400 Body mass index (BMI) [Ratio] 38.26 kg/m2 Nicholas Roger MD Work Phone: [employer] Work Phone: 11-07-2020 16:28-0400 Body temperature 98.8 [degF] Nicholas Roger MD Work Phone: [employer] Work Phone: 11-07-2020 16:28-0400 Body weight 97.98 kg Nicholas Roger MD Work Phone: [employer] Work Phone: 11-07-2020 16:28-0400 Diastolic blood pressure 71 mm[Hg] Nicholas Roger MD Work Phone: [employer] Work Phone: 11-07-2020 16:28-0400 Heart rate 98 /min Nicholas Roger MD Work Phone: [employer] Work Phone: 11-07-2020 16:28-0400 Respiratory rate 18 /min Nicholas Roger MD Work Phone: [employer] Work Phone: 11-07-2020 16:28-0400 SaO2% (BldA) [Mass fraction] 94 % Nicholas Roger MD Work Phone: [employer] Work Phone: 11-07-2020 16:28-0400 Systolic blood pressure 120 mm[Hg] Nicholas Roger MD Work Phone: [employer] Work Phone: 07-09-2020 10:52-0400 Body height 160 cm Zelda Bautista CNP Work Phone: [facility] 07-09-2020 10:52-0400 Body mass index (BMI) [Ratio] 41.27 kg/m2 Zelda Bautista CNP Work Phone: [facility] 07-09-2020 10:52-0400 Body weight 105.69 kg Zelda Batuista CNP Work Phone: [facility] 07-09-2020 10:52-0400 Diastolic blood pressure 70 mm[Hg] Zelda Bautista CNP Work Phone: [facility] 07-09-2020 10:52-0400 Heart rate 97 /min Zelda Bautista CNP Work Phone: [facility] 07-09-2020 10:52-0400 Systolic blood pressure 101 mm[Hg] Zelda Bautista CNP Work Phone: [facility] 06-24-2020 09:48-0400 Body mass index (BMI) [Ratio] 40.92 kg/m2 Anuj Quinn MD Work Phone: [employer] Work Phone: 06-24-2020 09:48-0400 Body temperature 97.9 [degF] Anuj Quinn MD Work Phone: [employer] Work Phone: 06-24-2020 09:48-0400 Body weight 104.78 kg Anuj Quinn MD Work Phone: [employer] Work Phone: 06-24-2020 09:48-0400 Diastolic blood pressure 64 mm[Hg] Anuj Quinn MD Work Phone: [employer] Work Phone: 06-24-2020 09:48-0400 Heart rate 120 /min Anuj Quinn MD Work Phone: [employer] Work Phone: 06-24-2020 09:48-0400 Respiratory rate 18 /min Anuj Quinn MD Work Phone: [employer] Work Phone: 06-24-2020 09:48-0400 SaO2% (BldA) [Mass fraction] 100 % Anuj Quinn MD Work Phone: [employer] Work Phone: 06-24-2020 09:48-0400 Systolic blood pressure 115 mm[Hg] Anuj Quinn MD Work Phone: [employer] Work Phone: 06-09-2020 10:44-0400 Body height 160 cm Lelo Gallegos MD Work Phone: [facility] 06-09-2020 10:44-0400 Body mass index (BMI) [Ratio] 41.27 kg/m2 Lelo Gallegos MD Work Phone: [facility] 06-09-2020 10:44-0400 Body weight 105.69 kg Lelo Gallegos MD Work Phone: [facility] 06-09-2020 10:44-0400 Diastolic blood pressure 75 mm[Hg] Lelo Gallegos MD Work Phone: [facility] 06-09-2020 10:44-0400 Heart rate 116 /min Lelo Gallegos MD Work Phone: [facility] 06-09-2020 10:44-0400 Systolic blood pressure 110 mm[Hg] Lelo Gallegos MD Work Phone: [facility] 03-26-2020 22:17-0500 Pulse (Heart Rate) 98 /min Brie [facility] [place] 03-26-2020 21:43-0500 BP Diastolic 66 mm[Hg] [facility] [place] 03-26-2020 21:43-0500 BP Systolic 99 mm[Hg] [facility] [place] 03-26-2020 21:43-0500 Pulse Oximetry 95 % Brie [facility] [place] 03-26-2020 20:50-0500 Respiratory Rate 16 /min Brie Moreno [facility] [place] [facility] [place] 03-26-2020 20:13-0500 BMI (Body Mass Index) 40.14 kg/m2 [facility] [place] 03-26-2020 20:13-0500 Body Temperature 98.2 [degF] [facility] [place] 03-26-2020 20:13-0500 Body weight 102.78 kg Brie [facility] [place] 02-15-2020 18:22-0500 BMI (Body Mass Index) 39.75 kg/m2 Brie [facility] 02-15-2020 18:22-0500 Body Temperature 98.6 [degF] [facility] [place] 02-15-2020 18:22-0500 Body weight 101.79 kg Brie Moreno [facility] [place] , [place] 02-15-2020 18:22-0500 BP Diastolic 78 mm[Hg] Brie Moreno [facility] [place] , [place] 02-15-2020 18:22-0500 BP Systolic 127 mm[Hg] Brie Moreno [facility] [place] 02-15-2020 18:22-0500 Height 160 cm [facility] [place] , [place] 02-15-2020 18:22-0500 Pulse (Heart Rate) 92 /min Brie Moreno [facility] [place] 02-15-2020 18:22-0500 Pulse Oximetry 99 % Brie Moreno [facility] [place] 02-15-2020 18:22-0500 Respiratory Rate 20 /min Brie Moreno [facility] [place] 11-20-2019 18:48-0400 BP Diastolic 75 mm[Hg] Anuj Quinn [facility] [place] 11-20-2019 18:48-0400 BP Systolic 128 mm[Hg] Anuj Quinn [facility] [place] 11-20-2019 18:48-0400 Pulse (Heart Rate) 83 /min Anuj Quinn [facility], [place] 11-20-2019 18:48-0400 Pulse Oximetry 97 % Anuj Quinn [facility], [place] 11-20-2019 18:48-0400 Respiratory Rate 18 /min Anuj Quinn [facility], [place] 11-20-2019 17:00-0400 BMI (Body Mass Index) 36.31 kg/m2 Anuj Quinn [facility] 11-20-2019 17:00-0400 Body Temperature 98.4 [degF] [facility], [place] 11-20-2019 17:00-0400 Body weight 92.99 kg Anuj Quinn [facility], [place] 11-03-2019 11:37-0400 BMI (Body Mass Index) 34.47 kg/m2 [facility] [place] 11-03-2019 11:37-0400 Body Temperature 98.71 [degF] Wayne [facility] [place] 11-03-2019 11:37-0400 Body weight 88.27 kg Wayne [facility] [place] 11-03-2019 11:37-0400 BP Diastolic 66 mm[Hg] [facility] [place] 11-03-2019 11:37-0400 BP Systolic 117 mm[Hg] [facility] [place] 11-03-2019 11:37-0400 Height 160 cm [facility] [place] 11-03-2019 11:37-0400 Pulse (Heart Rate) 87 /min [facility] [place] 11-03-2019 11:37-0400 Pulse Oximetry 99 % Wayne [facility], [place] 11-03-2019 11:37-0400 Respiratory Rate 20 /min [facility] [place] 08-13-2019 19:42-0400 BMI (Body Mass Index) 31 kg/m2 [facility] 08-13-2019 19:42-0400 Body Temperature 98.6 [degF] [facility] 08-13-2019 19:42-0400 Body weight 79.38 kg [facility] 08-13-2019 19:42-0400 Height 160 cm [facility] 08-13-2019 19:40-0400 BP Diastolic 60 mm[Hg] [facility] 08-13-2019 19:40-0400 BP Systolic 156 mm[Hg] [facility] 08-13-2019 19:40-0400 Pulse (Heart Rate) 138 /min [facility] 08-13-2019 19:40-0400 Pulse Oximetry 98 % [facility] 08-13-2019 19:40-0400 Respiratory Rate 16 /min [facility] 06-17-2019 12:45-0400 Respiratory Rate 18 /min [facility] 06-17-2019 07:54-0400 Body Temperature 97.81 [degF] [facility] 06-17-2019 07:54-0400 BP Diastolic 66 mm[Hg] [facility] 06-17-2019 07:54-0400 BP Systolic 99 mm[Hg] [facility] 06-17-2019 07:54-0400 Pulse (Heart Rate) 82 /min [facility] 06-17-2019 07:54-0400 Pulse Oximetry 94 % [facility] 06-14-2019 08:15-0400 BMI (Body Mass Index) 32.92 kg/m2 [facility] 06-14-2019 08:15-0400 Body weight 81.65 kg [facility] 06-14-2019 08:15-0400 Height 157.5 cm [facility] 06-14-2019 04:20-0400 Pulse (Heart Rate) 83 /min Brie Josh [facility] [place] 06-14-2019 04:05-0400 BP Diastolic 58 mm[Hg] [facility] [place] [facility] [place] 06-14-2019 04:05-0400 BP Systolic 95 mm[Hg] [facility] [place] [facility] [place] 06-14-2019 04:05-0400 Pulse Oximetry 95 % [facility] , [place] 06-14-2019 01:12-0400 Respiratory Rate 18 /min Brie Josh [facility] [place] 06-14-2019 00:10-0400 Body Temperature 100.51 [degF] [facility] [place] 06-13-2019 22:00-0400 BMI (Body Mass Index) 32.31 kg/m2 [facility] [place] 06-13-2019 22:00-0400 Body weight 82.74 kg Brie [facility] [place] [facility] [place] 06-13-2019 22:00-0400 Height 160 cm Brie Jorgensen [facility] [place] 04-28-2019 19:58-0500 Body Temperature 98.8 [degF] Roslyn Keating [facility] [place] 04-28-2019 19:58-0500 BP Diastolic 70 mm[Hg] Roslyn Keating [facility] [place] [facility] [place] 04-28-2019 19:58-0500 BP Systolic 98 mm[Hg] Roslyn [facility] [place] [facility] [place] 04-28-2019 19:58-0500 Pulse (Heart Rate) 119 /min Roslyn Jorgensen [facility], [place] 04-28-2019 19:58-0500 Pulse Oximetry 100 % Roslyn PhanGoNabit [facility] , [place] 04-28-2019 19:58-0500 Respiratory Rate 30 /min Roslyn Jorgensen [facility] [place], [place] 04-28-2019 19:54-0500 BMI (Body Mass Index) 30.65 kg/m2 Roslyn Jorgensen [facility], [place] 04-28-2019 19:54-0500 Body weight 78.47 kg Roslyn Jorgensen [facility] , [place] 04-28-2019 19:54-0500 Height 160 cm Roslyn Jorgensen [facility] , [place] Encounters Encounter Date Encounter Type Care Provider Facility Start: 12-07-2023 End: 12-07-2023 Bamboo flowsheet Mark Julia DO Work Phone: [facility] Start: 12-07-2023 End: 12-07-2023 Bamboo flowsheet Mark Julia DO Work Phone: [facility] Start: 12-07-2023 End: 12-07-2023 flow sheet Mark Julia DO Work Phone: [facility] Comment on above: Third trimester preg sammy; 35 weeks gestation of ; Request for sterilization; Dichorionic diamniotic twin in third trimester Start: 12-07-2023 End: 12-07-2023 ambulatory MARK JULIA Not Available Start: 11-23-2023 End: 11-23-2023 ambulatory MARK JULIA Not Available Start: 11-09-2023 End: 11-09-2023 ambulatory MARK JULIA Not Available Start: 10-26-2023 End: 10-26-2023 ambulatory MARK JULIA Not Available Start: 10-05-2023 End: 10[facility]05[facility]20[facility]: 10-05-2023 End: 10-05-2023 Subsequent hospital visit by physician Violet Juarez MD Work Phone: [id number] Start: 10-05-2023 End: 10-05-2023 Emergency department patient visit VIOLET Ramos [facility] Start: 10-05-2023 End: 10-05-2023 Emergency department patient visit LINDA SHEPPARD [facility] Start: 09-12-2023 End: 09-12-2023 ambulatory MARK JULIA Not Available Start: 08-16-2023 End: 08-16-2023 ambulatory MARK JULIA Not Available Start: 07-26-2023 End: 07-26-2023 ambulatory BLAKE KAUFFMAN [facility] Start: 07-19-2023 End: 07-19-2023 ambulatory MARK JULIA Not Available Start: 06-21-2023 End: 06-21-2023 ambulatory MARK JULIA Not Available Start: 05-20-2023 End: 05-20-2023 ambulatory MARK JULIA Not Available Start: 05-13-2023 End: 05-13-2023 Emergency department patient visit Jonathan Martinez Facility:[facility] Start: 05-13-2023 End: 05-13-2023 Emergency department patient visit [facility] Start: 05-11-2023 End: 05-12-2023 Emergency department patient visit Zac Fields Facility:[facility] Start: 05-11-2023 End: 05-11-2023 Emergency department patient visit [facility] Start: 05-10-2023 End: 05-10-2023 Emergency department patient visit LINDA SHEPPARD [facility] Start: 05-10-2023 End: 05-10-2023 Emergency department patient visit Chet Berumen DO Work Phone: [facility] ED Comment on above: Toothache (Primary D x); Dental decay Start: 12-27-2022 End: 12-27-2022 ambulatory MARK DUMONT [facility] Start: 11-23-2022 End: 11-23-2022 ambulatory MARK RAYRAY DUMONT [facility] Start: 09-04-2022 End: 09-04-2022 Emergency department patient visit Erin Lacy MD Work Phone: [facility] ED Comment on above: Sprain of right ankl e, unspecified ligament, initial encounter (Primary Dx) Start: 06-29-2022 End: 06-30-[address] MARK DUMONT . Facility: Start: 06-29-2022 End: 06-30-2022 ambulatory Linda Lilly Silver Facility:[facility] Start: 06-29-2022 End: 06-29-2022 Pain Management [facility] Start: 06-14-2022 End: 06-14-[address] MARK DUMONT . Facility: Start: 05-19-2022 End: 05-19-2022 Emergency department patient visit Erin Lacy MD Work Phone: [facility] ED Comment on above: Dry socket (Primary Dx) Start: 05-11-2022 End: 05-11-2022 Emergency department patient visit Anuj Quinn MD Work Phone: [facility] ED Comment on above: Masseter muscle spas m (Primary Dx); Other acute postprocedural pain Start: 03-30-[address] MARK DUMONT . Facili ty:[facility] Start: 03-29-2022 End: 03-29-2022 Subsequent hospital visit by physician [facility] Start: 10-12-2021 End: 10-12-2021 Emergency department patient visit Rishabh Mancini MD Work Phone: [facility] ED Comment on above: Acute bronchitis, un specified organism (Primary Dx) Start: 07-22-2021 End: 07-22-2021 Emergency department patient visit Clark Moser MD Work Phone: [facility] ED Comment on above: Acute pharyngitis, u nspecified etiology (Primary Dx) Start: 07-07-2021 ambulatory BRIE ROCA [facility] Ambulatory Start: 06-18-2021 ambulatory [facility] Ambulatory Start: 06-17-2021 End: 06-18-2021 ambulatory [facility] Start: 05-15-2021 End: 05-19-2021 ambulatory [facility] Start: 05-15-2021 End: 05-15-2021 Nutrition therapy Farhat Vang MD Work Phone: [facility] Comment on above: Morbid obesity with body mass index (BMI) of 40.0 or higher (HCC) Start: 05-14-2021 End: 05-18-2021 ambulatory [facility] Start: 05-14-2021 End: 05-14-2021 Office outpatient visit 15 minutes Farhat Vang MD Work Phone: [facility] Comment on above: Anxiety and depressi on (Primary Dx); At risk for obstructive sleep apnea; Chronic bilateral low back pain without sciatica; Hepatitis C antibody positive in blood; Body mass index 40.0-44.9, adult (HCC); History of opioid abuse (HCC) Start: 04-16-2021 End: 04-20-2021 ambulatory [facility] Start: 04-16-2021 End: 04-16-2021 Initial preventive medicine new pt age 18-39yrs Farhat Vang MD Work Phone: [facility] Comment on above: Encounter for genera l adult medical examination with abnormal findings (Primary Dx); Anxiety and depression; History of opioid abuse (HCC); Morbid obesity with body mass index (BMI) of 40.0 or higher (HCC) Start: 04-16-2021 End: 04-16-2021 Patient encounter status Farhat Vang MD Work Phone: [facility] Start: 03-23-2021 End: 03-23-2021 Emergency department patient visit Anuj Quinn MD Work Phone: [facility] ED Comment on above: COVID-19 (Primary Dx ); Omphalitis in adult Start: 02-16-2021 End: 02-20-2021 [facility] Start: 02-12-2021 End: 02-16-2021 ambulatory PHYSICIAN [facility] Start: 02-10-2021 End: 02-14-2021 ambulatory DUMONT Aurelio [facility] Start: 02-02-2021 End: 02-06-2021 ambulatory PHYSICIAN [facility] Start: 01-15-2021 Documentation procedure Jeimy goodman LPN [facility] Start: 01-15-2021 End: 01-15-2021 ambulatory HOLLAND ANN [facility] Start: 01-15-2021 End: 01-15-2021 Office outpatient new 30 minutes Holland Ann MD Work Phone: [facility] Comment on above: Hemorrhoids, unspeci fied hemorrhoid type Start: 12-29-2020 End: 01-02-2021 ambulatory PHYSICIAN [facility] Start: 12-27-2020 End: 12-27-2020 Emergency department patient visit Wayne Springer MD Work Phone: [facility] ED Comment on above: Viral syndrome (Prim prakash Dx) Start: 11-20-2020 End: 11-20-2020 Emergency department patient visit Anuj Quinn MD Work Phone: [facility] ED Comment on above: Strain of rhomboid m uscle, initial encounter; Chest wall muscle strain, initial encounter Start: 11-07-2020 End: 11-07-2020 Emergency department patient visit Nicholas Roger MD Work Phone: [facility] ED Comment on above: Viral URI (Primary D x) Start: 08-28-2020 End: 08-30-2020 Evaluation [facility] management [facility] Start: 08-25-2020 End: 08-25-2020 ambulatory PHYSICIAN [facility] Start: 07-29-2020 End: 08-02-2020 ambulatory PHYSICIAN [facility] Start: 07-22-2020 End: 07-26-2020 ambulatory LELO GALLEGOS [facility] Start: 07-22-2020 End: 07-22-2020 Telemedicine consultation with patient Lelo Gallegos MD Work Phone: [facility] Comment on above: Diet controlled gest ational diabetes mellitus (GDM) in third trimester Start: 07-10-2020 ambulatory LELO GALLEGOS [facility] Ambulatory Start: 07-09-2020 End: 07-09-2020 ambulatory ZELDA BAUTISTA [facility] Amb[facility] Start: 07-09-2020 End: 07-09-2020 Office outpatient visit 15 minutes Zelda Bautista CNP Work Phone: [facility] Comment on above: Diet controlled gest ational diabetes mellitus (GDM) in third trimester (Primary Dx) Start: 06-24-2020 End: 06-24-2020 Emergency department patient visit Anuj Quinn MD Work Phone: [facility] ED Comment on above: Acute frontal sinusi tis, recurrence not specified (Primary Dx) Start: 06-10-2020 End: 06-10-2020 Nutrition therapy Lelo Danitza Gallegos Work Phone: [facility] Comment on above: Diet controlled gest ational diabetes mellitus (GDM) in second trimester Start: 06-09-2020 End: 06-09-2020 Office outpatient new 30 minutes Roslyn Stevenson MD Work Phone: [facility] Comment on above: Diet controlled gest ational diabetes mellitus (GDM) in second trimester Start: 05-27-2020 End: 05-31-2020 ambulatory PHYSICIAN [facility] Start: 05-21-2020 End: 05-25-2020 ambulatory PHYSICIAN [facility] Start: 03-26-2020 End: 03-26-2020 Emergency department patient visit Brie Moreno Work Phone: [facility] ED Comment on above: Atypical pneumonia ( Primary Dx) Start: 02-15-2020 End: 02-15-2020 Emergency department patient visit Brie Benjamin Josh Work Phone: [facility] ED Comment on above: Pain, dental (Primar y Dx); Acute gingivitis; Alveolar osteitis Start: 11-20-2019 End: 11-20-2019 Emergency department patient visit Anuj Quinn Work Phone: [facility] ED Comment on above: Bacterial vaginosis (Primary Dx); Trichimoniasis; Furuncle of left axilla Start: 11-03-2019 End: 11-03-2019 Emergency department patient visit Wayne Springer Work Phone: [facility] ED Comment on above: Poison arabella (Primary Dx) Start: 08-20-2019 End: 08-21-2019 Patient encounter procedure [facility]ODA MADERA [facility] Start: 08-20-2019 End: 08-20-2019 Subsequent hospital visit by physician [facility] Start: 08-13-2019 End: 08-13-2019 Emergency department patient visit Christian Redmond Juan Work Phone: [facility] Emergency Department Comment on above: Heroin abuse (HCC) ( Primary Dx) Start: 06-20-2019 End: 06-20-2019 Patient encounter procedure Alisa Jeongsca Palencia Work Phone: [facility] Comment on above: Hepatitis C virus in fection without hepatic coma, unspecified chronicity (Primary Dx) Start: 06-18-2019 End: 06-18-2019 Documentation procedure Taryn Torres [facility] Start: 06-18-2019 Follow-up encounter Taryn Cartagena [facility] Comment on above: Transition Of Care Start: 06-18-2019 End: 06-18-2019 Patient encounter procedure Taryn Torres [facility] Start: 06-14-2019 End: 06-17-2019 Evaluation and management of inpatient [facility] Physicians Work Phone: [facility] 1 Comment on above: Elevated LFTs; IVDA (intravenous drug abuse) complicating (HCC) Start: 06-13-2019 End: 06-14-2019 Emergency department patient visit Brie Moreno Work Phone: [facility] ED Comment on above: Abdominal pain, unsp ecified abdominal location (Primary Dx); Urinary tract infection with hematuria, site unspecified; Viral hepatitis without hepatic coma, unspecified chronicity, unspecified viral hepatitis type; Polysubstance abuse (HCC); Hyperbilirubinemia Start: 04-28-2019 End: 04-28-2019 Emergency department patient visit Roslyn Keating Work Phone: [facility] ED Comment on above: Accidental overdose of heroin, initial encounter (HCC) (Primary Dx) Start: 12-20-2016 End: 01-02-2020 Cancer cervix - screening done Lelo Gallegos MD Work Phone: [facility] Start: 12-20-2016 End: 01-02-2020 Encounter for gynecological examination (general) (routine) without abnormal findings Jeimyjv Tan MAINTENANCE AIDE [facility] Procedures Date Procedure Procedure Detail Performing Clinician Start: 12-07-2023 Urnls dip stick/tabl et rgnt non-auto w/o micrscp Mark Dumont DO Work Phone: Start: 09-04-2022 Radex ankle complete minimum 3 views Erin Lacy MD Work Phone: Start: 09-04-2022 Urine test visual color cmprsn randy Lacy MD Work Phone: Start: 05-11-2022 Ct maxillofacial w/o contrast material Anuj Quinn MD Work Phone: Start: 05-11-2022 Urine test visual color cmprsn randy Quinn MD Work Phone: Start: 03-29-2022 Gonadotropin chorion ic quantitative Mark Dumont MD Work Phone: Start: 07-22-2021 COVID-19, RAPID Clark Moser MD Work Phone: Start: 07-22-2021 Iaadiadoo streptococ cus group a Clark Moser MD Work Phone: Start: 03-23-2021 BASIC METABOLIC PANE L W/ REFLEX TO MG FOR LOW K Anuj Quinn MD Work Phone: Start: 03-23-2021 Blood count complete auto&auto difrntl wbc Anuj Quinn MD Work Phone: Start: 03-23-2021 COVID-19, RAPID Parish Quinn MD Work Phone: Start: 03-23-2021 Iaadiadoo influenza Chr daryl Quinn MD Work Phone: Start: 12-29-2020 Microscopic observat ion [Identifier] in Cervix by Cyto stain Jeimy Tan SAUL Start: 12-27-2020 COVID-, RAPID Wayne Springer MD Work Phone: Start: 12-27-2020 Iaadiadoo streptococ cus group a Wayne Springer MD Work Phone: Start: 11-20-2020 Radex shoulder compl ete minimum 2 views Anuj Quinn Work Phone: Start: 07-09-2020 Hemoglobin glycosylated a1c Zelda Haywardottoniel Bautista [facility] Work Phone: Start: 06-09-2020 Hemoglobin glycosylated [...] blood count with white cell differential, automated Indraaaron Pruitt Work Phone: Start: 06-14-2019 Complete blood [...] of 2) Shingles Vaccine (1 of 2) [facility] [place], [place] Start: 12-29-2025 Screening for malignant neoplasm of cervix Pap Smear [facility] Start: 10-31-2024 Screening for malignant neoplasm of cervix Pap Smear [facility] Start: 12-30-2023 Screening for malignant neoplasm of cervix [facility] Start: 12-07-2023 End: 12-07-2023 Patient encounter procedure 12/07/2023 2:00 PM EDT Routine [facility] [address] [place] [address] Mark Dumont, [address] [place] [address] Arrived [facility] Comment on above: Arrived Start: 12-07-2023 End: 12-06-2024 Strep B DNA probe, amplification Strep B DNA probe, amplification Lab Routine Third trimester Expected: 12/07/2023 (Approximate), Expires: 12/06/2024 [facility] Work Phone: Comment on above: Expected: 12/07/2023 (Approximate), Expi res: 12/06/2024 Start: 09-06-2024 Respiratory Syncytial Virus (RSV) or age 60 yrs+ (1 - Risk 1-dose series) Respiratory Syncytial Virus (RSV) or age 60 yrs+ (1 - Risk 1-dose series) [facility] Start: 11-10-2023 End: 11-10-2023 Patient encounter procedure 11/10/2023 10:00 AM EDT Routine [facility]aternal [facility] [address] [facility] [address] [place] [address] [facility] Start: 10-27-2023 End: 10-27-2023 Patient encounter procedure 10/27/2023 10:00 AM EDT Routine [facility] [address] [facility] [address] [place] [address] [facility] Start: 10-13-2023 End: 10-13-2023 Patient encounter procedure 10/13/2023 10:00 AM EDT Routine [facility] [address] [facility] [address] [place] [address] Return in about 2 weeks (around 10/04/2023) for twins, dopplers, growth, transvag. [facility] Comment on above: Return in about 2 weeks (around ) for twins, dopplers, growth, transvag. Start: 10-07-2023 Tdap Vaccine during Tdap Vaccine during [facility] Start: 10-06-2023 Influenza vaccination Flu vaccine (#1) [facility] Start: 10-31-2022 Screening for malignant neoplasm of cervix [facility] [employer] Work Phone: Start: 10-05-2022 Influenza vaccination Flu vaccine (#1) [facility] Start: 04-16-2022 History and physical examination, annual for health maintenance Wellness Visit [facility] Start: 02-13-2022 Depression Remission Assessment (PHQ9) Depression Remission Assessment (PHQ9) [facility] Start: 12-29-2021 History and physical examination, annual for health maintenance Wellness Visit [facility] Start: 11-12-2021 End: 11-12-2021 Patient encounter procedure 11/12/2021 Office Visit Primary Care Farhat Vang MD [address] [facility] [address] [facility] [address] [place] [address] [facility] Start: 11-05-2021 Influenza vaccination [facility] Start: 10-05-2021 Influenza vaccination Flu vaccine (#1) [facility] Start: 06-26-2021 End: 06-26-2021 Nutrition therapy 06/26/2021 Nutrition Nutrition Farhat Vang MD [address] [facility] [address] [place] [address] [facility] Nutritional Services Start: 05-15-2021 End: 05-15-2021 Nutrition therapy 05/15/2021 Nutrition Nutrition Angelito Harvey RD [facility] Nutrition[facility] Start: 05-14-2021 End: 05-14-2021 Patient encounter procedure 05/14/2021 Office Visit Primary Care Farhat Vang MD [address] [facility] [address] [place] [address] [facility] Start: 03-17-2021 Depression screening using PHQ-9 (Patient Health Questionnaire 9) score Depression Screening (PHQ9) [facility] Start: 01-15-2021 Depression Remission Assessment (PHQ9) Depression Remission Assessment (PHQ9) [facility] Start: 01-09-2021 Hemoglobin A1c measurement A1C [facility] Start: 12-09-2020 HbA1c (Bld) [Mass fraction] A1C [facility] Start: 12-09-2020 Hemoglobin A1c measurement A1C [facility] Start: 11-05-2020 Influenza vaccination [facility] Start: 10-31-2020 History and physical examination, annual for health maintenance Wellness Visit [facility] Start: 08-28-2020 End: 08-28-2020 Admission to same day surgery center 08/28/2020 Surgery Obstetrics Roslyn Stevenson MD [facility] [address] [place] [address] [phone] SECTION [facility] Labor & Delivery Comment on above: SECTION Start: 08-28-2020 Subsequent hospital visit by physician 08/28/2020 Hospital Encounter Obstetrics Roslyn Stevenson MD [facility] [address] Young [facility] [place] [address] [phone] [facility] Labor & Delivery Start: 08-25-2020 End: 08-25-2020 Office Visit 08/25/2020 Office Visit Endocrinology Zelda Bautista, ARABIC TRANSLATOR [address] [place] [address] [phone] [facility] Start: 07-31-2020 End: 07-31-2020 Office Visit 07/31/2020 Office Visit Endocrinology Benito Krueger CNP [address] [place] [address] [phone] [facility] Start: 07-29-2020 End: 07-29-2020 Patient encounter procedure 07/29/2020 Routine Obstetrics and Gynecology Regla Dias CNM [address] [place] [phone] [facility] Start: 07-22-2020 End: 07-22-2020 Telemedicine consultation with patient 07/22/2020 Telemedicine Nutrition Lelo Gallegos MD [address] [place] [address] [phone] [facility] Nutritional Services Start: 07-17-2020 End: 07-17-2020 Patient encounter procedure 07/17/2020 Routine Obstetrics and Gynecology Yvonne Santos MD [address] [place] [phone] [facility] Start: 07-09-2020 End: 07-09-2020 Office Visit 07/09/2020 Office Visit Endocrinology Zelda Bautista, ARABIC TRANSLATOR [address] [place] [address] [phone] [facility] Start: 07-04-2020 End: 07-04-2020 Patient encounter procedure 07/04/2020 Routine Obstetrics and Gynecology Radha Pantoja MD [address] [place] [phone] [facility] Start: 06-26-2020 End: 06-26-2020 Patient encounter procedure 06/26/2020 Office Visit Endocrinology Janie Chen PA-C [address] [place] [address] [phone] [facility] Start: 06-24-2020 End: 06-24-2020 Nutrition [facility] Nutrition[facility] Start: 06-19-2020 End: 06-19-2020 Routine 06/19/2020 Routine Obstetrics and Gynecology Larissa, Regla Arriaga CNM [address] [place] [phone] [facility] Start: 05-17-2020 Depression screening using PHQ-9 (Patient Health Questionnaire 9) score Depression Screening (PHQ9) [facility] Start: 2020 Screening for malignant neoplasm of cervix [facility] Start: 02-26-2020 End: 02-26-2020 Initial 02/26/2020 Initial Obstetrics and Gynecology Jai Huerta MD [address] [place], [place] [id number] [facility] Start: 11-06-2019 Influenza vaccination [facility] [place] Start: 11-06-2019 Influenza vaccination given [facility] Start: 08-06-2019 Screening for malignant neoplasm of cervix Pap Smear [facility] Start: 06-20-2019 End: 06-20-2019 Office Visit 06/20/2019 Office Visit Transition of Care Alisa Palencia, ARABIC TRANSLATOR [address] [facility] [address] [place] [address] [phone] [facility] Start: 11-05-2018 Influenza vaccination Flu vaccine (#1) [place], [place] Start: 11-05-2018 Influenza vaccination given Sequential Influenza Vaccine (#1) [facility] Start: 03-21-2015 Cervical cancer screen Cervical cancer screen [place], [place] Start: 03-21-2015 Screening for malignant neoplasm of cervix Cervical cancer screen [place], [place] Start: 04-05-2014 Screening for malignant neoplasm of cervix Pap smear [facility] Start: 2009 DTaP/Tdap/Td vaccine (1 - Tdap) DTaP/Tdap/Td vaccine (1 - Tdap) [place], [place] Start: 2009 Hepatitis B vaccine (1 of 3 - Risk 3-dose series) Hepatitis B vaccine (1 of 3 - Risk 3-dose series) [facility] Work Phone: Start: 2008 Hepatitis C screening Hepatitis C screen [facility] Start: 2006 COVID-19 Vaccine (1) COVID-19 Vaccine (1) [facility] Start: 2005 HIV screen HIV screen [place], [place] Start: 2005 HIV screening HIV screen [facility] Start: 2002 COVID-19 Vaccine (1) COVID-19 Vaccine (1) [facility] Start: 2002 Depression Monitoring Depression Monitoring [facility] Start: 2001 DTaP/Tdap/Td vaccine (1 - Tdap) DTaP/Tdap/Td vaccine (1 - Tdap) [place] Start: 2001 DTaP/Tdap/Td vaccine (5 - Tdap) DTaP/Tdap/Td vaccine (5 - Tdap) [facility] Start: 2000 Albumin DL <= 20 mg/L (U) [Mass/Vol] Urine Microalbumin [facility] Start: 2000 Diabetic foot examination Foot Exam [facility] Start: 2000 Microalbumin measurement, urine, quantitative Urine Microalbumin [facility] Start: 2000 Ophthalmic examination and evaluation Ophthalmology Exam [facility] Start: 1996 Pneumococcal 0-64 years Vaccine (1 of 1 - PPSV23) Pneumococcal 0-64 years Vaccine (1 of 1 - PPSV23) [place], [place] Start: 1996 Pneumococcal Vaccine: Ped or At-Risk (1 of 2 - PPSV23) Pneumococcal Vaccine: Ped or At-Risk (1 of 2 - PPSV23) [facility] Start: 1995 COVID-19 Vaccine (1) COVID-19 Vaccine (1) [facility] Start: 1993 History and physical examination, annual for health maintenance Wellness Visit [facility] Start: 1991 Varicella vaccine (1 of 2 - 2-dose childhood series) Varicella vaccine (1 of 2 - 2-dose childhood series) [facility] Start: 1990 COVID-19 Vaccine (#1) COVID-19 Vaccine (#1) [facility] Start: 1990 Hepatitis B vaccine (1 of 3 - 3-dose series) Hepatitis B vaccine (1 of 3 - 3-dose series) [facility] Start: 1990 Hepatitis C screening Hepatitis C screen [facility] Start: 1990 Tetanus vaccination Tetanus: Every 10yrs [facility] Anti smooth muscle antibody IgA level Anti-Smooth Muscle Antibody Lab Add-On 06/15/2019 1:50 PM EDT [facility] Antimitochondrial antibody titer Antimitochondrial Antibody Lab Add-On 06/15/2019 1:50 PM EDT [facility] End: 11-20-2019 C.trachomatis N.gonorrhoeae DNA, Urine C.trachomatis N.gonorrhoeae DNA, Urine Microbiology STAT One Time for 1 Occurrences starting 11/20/2019 until 11/20/2019 [place] Comment on above: One Time for 1 Occurrences starting 11/05 until 11/20/2019 C.trachomatis N.gonorrhoeae DNA, Urine C.trachomatis N.gonorrhoeae DNA, Urine Microbiology Stat [employer] Label print 11/20/2019 5:55 PM EDT [place] End: 03-26-2020 Covid-19 Ambulatory Covid-19 Ambulatory Lab Routine Once for 1 Occurrences starting 03/26/2020 until 03/26/2020 [facility] [place] Comment on above: Once for 1 Occurrences starting 03/26/19 21 until 03/26/2020 Covid-19 Ambulatory Covid-19 Amb ulatory Lab Routine 03/26/2020 8:44 PM EST [facility] End: 06-13-2019 Culture, Blood 1 Culture, Blood 1 Microbiology STAT One Time for 1 Occurrences starting 06/13/2019 until 06/13/2019 [place] Comment on above: One Time for 1 Occurrences starting 10/2019 until 06/13/2019 Culture, Blood 1 [place], [place] End: 03-23-2021 Culture, Wound [facility] Work Phone: Comment on above: One Time for 1 Occurrences starting 03/07 until 03/23/2021 Cytomegalovirus DNA assay CMV DN A Detection and Quant, Blood Lab Routine 06/15/2019 1:50 PM EDT [facility] Kirsten-Hazel Virus P CR, Quantitative Kirsten-Hazel Virus PCR, Quantitative Lab Routine 06/15/2019 1:50 PM EDT [facility] End: 04-16-2022 Hemoglobin A1c/Hemoglobin.total in Blood Hemoglobin A1c Lab Routine Encounter for general adult medical examination with abnormal findings 1 Occurrences starting 04/16/2021 until 04/16/2022 [facility] Work Phone: Comment on above: 1 Occurrences starting 04/16/2021 until 04/16/2022 Hemoglobin A1c/Hemoglobin.total in Blood Hemoglobin A1c Lab Routine Encounter for general adult medical examination with abnormal findings 04/16/2021 10:58 AM [facility] End: 04-16-2022 Hepatitis C antibody measurement Hepatitis C Antibody Lab Routine Encounter for general adult medical examination with abnormal findings 1 Occurrences starting 04/16/2021 until 04/16/2022 [facility] Comment on above: 1 Occurrences starting 04/16/2021 until 04/16/2022 Hepatitis C antibody measurement Hepatitis C Antibody Lab Routine Encounter for general adult medical examination with abnormal findings 04/16/2021 10:58 AM [facility] MDI Treatment MDI Treatment Re spiratory Care Routine Every 6hr As Needed until discontinued starting 03/26/2020 [place] Comment on above: Every 6hr As Needed until discontinued s tarting 03/26/2020 Nonrebreather mask oxygen Nonreb reather mask oxygen Respiratory Care Routine As Needed until discontinued starting 10/05/2023 [facility] Comment on above: As Needed until discontinued starting Nuclear Ab IF (S) [Titer] KENIA La b Add-On 06/15/2019 1:50 PM EDT [facility] End: 06-24-2020 Urinalysis, reflex to microscopic Urinalysis, reflex to microscopic Lab STAT One Time for 1 Occurrences starting 06/24/2020 until 06/24/2020 [employer] Work Phone: Comment on above: One Time for 1 Occurrences starting 06/06 until 06/24/2020 End: 05-14-2022 XR Lumbar Spine Complete AP/Lat w Obls XR Lumbar Spine Complete AP/Lat w Obls Imaging Routine Chronic bilateral low back pain without sciatica 1 Occurrences starting 05/14/2021 until 05/14/2022 [facility] Work Phone: Comment on above: 1 Occurrences starting 05/14/2021 until 05/14/2022 Payers Date Payer Category Payer Unknown BCBS BCBS [id number] 2023-Present [phone] [address] [place] [address] [id number] 2021 Medicaid [employer] [id number] 2021-Present [phone] [address] [place] [address] [id number]. [id number] 2021 Unknown [id number] 1.2.840.562546.1.13.239.2. 7.3.940692.315 2017 Medicaid [id number] [id number]. 7.3.071615.315 2012 Medicaid [id number] [id number]. 7.3.809813.315 2012 Medicaid [id number] 2008 Private Health Insurance [facility] [id number] 1990 Unknown [id number] 2.16.840.1.473828.3.579.2. 173 1990 Unknown [id number] 2.16.840.1.600022.3.579.2. 900 1990 Unknown [id number] 2.16.840.1.882811.3.579.2. 900 1990 Unknown [id number] 2.16.840.1.508516.3.579.2. 900 1990 Unknown [id number] 2.16.840.1.642267.3.579.2. 900 1990 Unknown [id number] 2.16.840.1.372040.3.579.2. 900 1990 Unknown [id number] 2.16.840.1.617091.3.579.2. 900 1990 Unknown [id number] 2.16.840.1.812929.3.579.2. 900 1990 Unknown [id number] 2.16.840.1.583325.3.579.2. 903 1990 Unknown [id number] 2.16.840.1.670031.3.579.2. 903 1990 Unknown [id number] 2.16.840.1.998538.3.579.2. 903 1990 Unknown [id number] 2.16.840.1.088536.3.579.2. 903 1990 Unknown [id number] 2.16.840.1.559281.3.579.2. 903 1990 Unknown [id number] 2.16.840.1.278047.3.579.2. 903 1990 Unknown [id number] 2.16.840.1.818838.3.579.2. 903 1990 Unknown [id number] 2.16.840.1.016998.3.579.2. 903 1990 Unknown [id number] 2.16.840.1.810753.3.579.2. 903 1990 Unknown [id number] 2.16.840.1.399508.3.579.2. 903 1990 Unknown [id number] 2.16.840.1.466382.3.579.2. 903 1990 Unknown [id number] 2.16.840.1.633773.3.579.2. 903 1990 Unknown [id number] 2.16.840.1.514630.3.579.2. 903 1990 Unknown [id number] 2.16.840.1.296341.3.579.2. 903 1990 Unknown [id number] 2.16.840.1.515597.3.579.2. 903 1990 Unknown [id number] 2.16.840.1.097355.3.579.2. 593 1990 Unknown [id number] 2.16.840.1.723322.3.579.2. 593 1990 Unknown [id number] 2.16.840.1.525347.3.579.2. 593 1990 Unknown [id number] 2.16.840.1.466610.3.579.2. 593 1990 Unknown [id number] 2.16.840.1.113414.3.579.2. 727 1990 Unknown [id number] 2.16.840.1.659070.3.579.2. 727 1990 Unknown [id number] 2.16.840.1.162309.3.579.2. 727 1990 Unknown [id number] 2.16.840.1.699056.3.579.2. 174 1990 Unknown [id number] 2.16.840.1.391768.3.579.2. 174 1990 Unknown [id number] 2.16.840.1.582671.3.579.2. 174 1990 Unknown [id number] 2.16.840.1.382951.3.579.2. 174 1990 Unknown [id number] 2.16.840.1.305679.3.579.2. 174 1990 Unknown [id number] 2.16.840.1.890293.3.579.2. 9 1990 Unknown [id number] 2.16.840.1.636509.3.579.2. 1259 1990 Unknown [id number] 2.16.840.1.917488.3.579.2. 9 1990 Unknown [id number] 2.16.840.1.244473.3.579.2. 1259 1990 Unknown [id number] 2.16.840.1.249160.3.579.2. 9 1990 Unknown [id number] 2.16.840.1.634992.3.579.2. 1259 1990 Unknown [id number] 2.16.840.1.873211.3.579.2. 9 1990 Unknown [id number] 2.16.840.1.528287.3.579.2. 1259 1990 Unknown [id number] 2.16.840.1.538051.3.579.2. 9 1990 Unknown [id number] 2.16.840.1.360391.3.579.2. 175 1990 Unknown [id number] 2.16.840.1.621717.3.579.2. 175 1990 Unknown [id number] 2.16.840.1.861240.3.579.2. 175 1959 Unknown [id number] Social History Date Type Detail Facility Start: 04-28-2019 End: 11-03-2019 Tobacco smoking status [facility] Current every day smoker [place] End: 02-15-2020 History of tobacco use Cigarette Smoker [place] Start: 04-28-2019 End: 10-05-2023 Cigarettes smoked current (pack per day) - Reported [facility] Start: 04-28-2019 Alcohol intake Current drinke r of alcohol (finding) [place], [place] Start: 1990 Sex Assigned At Not on file [place] Start: 06-13-2019 End: 10-05-2023 Alcohol intake Ex-drinker (finding) [facility] Y Exposure to SARS-CoV -2 (event) Unable to assess [place] Start: 05-18-2019 End: 04-16-2021 History SDOH Alcohol Frequency 3 [facility] Start: 05-18-2019 End: 07-16-2020 History SDOH Alcohol Std Drinks 5 [facility] Start: 05-04-2021 End: 05-19-2022 Exposure to SARS-CoV-2 (event) Not sure [facility] Start: 11-20-2019 End: 07-26-2023 Tobacco use and exposure Never used [place], [place] Start: 06-09-2020 End: 07-26-2023 Tobacco smoking status [facility] Former smoker [facility] End: 02-15-2020 History of tobacco use Current smoker [facility] Start: 12-09-2019 [facility] Start: 04-16-2021 History SDOH Social Connections Get Together 4 [facility] Start: 04-16-2021 History SDOH Food Worry 1 [facility] Start: 09-04-2022 End: 10-05-2023 Sex Assigned At Female Ayoub [facility] Start: 09-04-2022 History SDOH Alcohol Frequency 2 [employer] How often to you hav e a drink containing alcohol? Monthly or less [employer] Average Number of Drinks Not on file [facility] How often to you hav e a drink containing alcohol? Never [facility] [employer] [facility] consumption unknown [facility] Medical Equipment Procedure Code Equipment Code Equipment Origin al Text Equipment Identifier Dates Use to check BG QID Dx O24.14 . [id number] Start: 06-09-2020 Use as instructe d to check BG QID Dx O24.14 . [id number] Start: 06-09-2020 End: 06-11-2020 use to test BLOO D SUGAR FOUR TIMES DAILY [id number] Start: 06-09-2020 Goals Date Patient Goal Desired Activity /State Functional Status Date Assessment Result Facility 05-13-2023 Functional Status N/A [facility] 05-11-2023 Functional Status N/A [facility] 06-29-2022 Functional Status N/A [facility] Clinical Notes 06-09-2020 to 12-07-2023 Ghislaine Ratliff LPN - 12/07/2023 2:00 PM EDT Note Date & Type Note Facility 12-07-2023 History of Presen t illness Narrative Reason for Appointment: Patient ID: Tia Monroe is a 33 y.o. female who presents for Routine Visit Patient presents today for Return OB appointment. MEDICATIONS Current Outpatient Medications Medication Instructions aspirin 81 MG EC tablet 1 tablet, Oral, Daily hydrocortisone (Anusol-HC) 2.5 % rectal cream Rectal, 2 times daily omeprazole (PRILOSEC) 20 mg, Oral, Nightly, Do not crush or chew. MV-Min-Fe Fum-FA-DHA ( 1 PO) 1 each, Oral, Daily ALLERGIES No Known Allergies PROBLEMS Active Ambulatory Problems Diagnosis Date Noted Twin gestation in first trimester 06/21/2023 Nausea 06/21/2023 11 weeks gestation of 06/21/2023 Resolved Ambulatory Problems Diagnosis Date Noted No Resolved Ambulatory Problems Past Medical History: Diagnosis Date Miscarriage 2020 Miscarriage 2021 HISTORY PAST MEDICAL HISTORY SOCIAL HISTORY Past Medical History: Diagnosis Date Miscarriage 2020 Miscarriage 2021 Social History Tobacco Use Smoking status: Not on file Smokeless tobacco: Not on file Substance Use Topics Alcohol use: Not on file Drug use: Not on file FAMILY HISTORY No family history on file. SURGICAL HISTORY Past Surgical History: Procedure Laterality Date CERVICAL BIOPSY W/ LOOP ELECTRODE EXCISION 02/03/2018 SECTION, CLASSIC 11/03/2010 SECTION, CLASSIC 01/26/2012 SECTION, CLASSIC 05/03/2013 SECTION, CLASSIC 08/28/2020 REVIEW OF SYSTEMS Review of Systems: Review of Systems Constitutional: Negative. HENT: Negative. Eyes: Negative. Respiratory: Negative. Cardiovascular: Negative. Gastrointestinal: Negative. Genitourinary: Negative. Musculoskeletal: Negative. Skin: Negative. Neurological: Negative. All other systems reviewed and are negative. Hematological: Negative. Endocrine: Negative. Allergic/Immunologic: Negative. OBJECTIVE Objective: Physical Exam Constitutional: Appearance: Normal appearance. She is well-developed. Genitourinary: Vulva normal. Cardiovascular: Rate and Rhythm: Normal rate and regular rhythm. Pulmonary: Effort: Pulmonary effort is normal. Breath sounds: Normal breath sounds. Abdominal: General: Bowel sounds are normal. There is no distension. Palpations: Abdomen is soft. Tenderness: There is no abdominal tenderness. There is no guarding or rebound. Musculoskeletal: General: No swelling. Normal range of motion. Right lower leg: No edema. Left lower leg: No edema. Neurological: Mental Status: She is alert and oriented to person, place, and time. Skin: General: Skin is warm and dry. Psychiatric: Mood and Affect: Mood normal. Behavior: Behavior normal. Vitals and nursing note reviewed. Exam conducted with a bilingual school psychologist present. Vitals: Estimated body mass index is 44.8 kg/m as calculated from the following: Height as of 05/20/23: 5' 4 . Weight as of this encounter: 261 lb. BP: 110/70 Patient's last menstrual period was 2023. ASSESSMENT & PLAN ICD-10-CM 1. Third trimester Z34.93 POCT urinalysis dipstick manually resulted Strep B DNA probe, amplification 2. 35 weeks gestation of Z3A.35 3. Request for sterilization Z30.2 Patient presents today for a routine obstetrics appointment. Patient is currently 35w6d . Patient states she is doing well but has complaints of being tired due to current . Patient has verbalizes frequent movement. labor precautions was discussed/given and patient was instructed to perform kick counts three times a day. As previously documented patient desires sterilization during the time of her repeat section. I have discussed with the patient in detail that a salpingectomy is considered to be permanent and patient verbalized understanding and that she does not desire anymore children. Patient will undergo repeat section and bilateral salpingectomy on 12/16/[address] Dumont. Surgical consents were signed, partners instructions were given, mmc was reviewed, and patient is to proceed to [facility] OR on her scheduled day. Orders Placed This Encounter Procedures Strep B DNA probe, amplification POCT urinalysis dipstick manually resulted Follow Up: Patient is to return in 1 week for routine OB appointment. Orders Placed This Encounter Procedures Strep B DNA probe, amplification POCT urinalysis dipstick manually resulted Follow Up: Patient is to return to office in 1 week for routine OB appointment Documented by Ghislaine Ratliff LPN on behalf of: Mark Dumont DO documented in this encounter [facility] 05-13-2023 Hospital Discharg e instructions Patient Education [...] Follow these instructions at home: Medicines Take kmrv-jdu-eaizsry and prescription medicines only as told by [...] Document Reviewed: 04/30/2021 Elsevier Patient Education 2022 [employer]. Follow Up Care 05/13/2023 11:20:07 With:[facility] Address: [place] [address]- Business (1) When:05/16/2023 12:45:32 Comments:Dentistry follow[facility] Hospital Discharg e instructions Patient Education 05/11/2023 23:33:09 Dental Pain, Zexm-cb-Qzqw Dental Pain Dental pain is often a [...] Follow these instructions at home: Medicines Take lmkh-trs-rwjkxye and prescription medicines only as told by [...] damage to the area. Brushing your teeth [place] your teeth twice a day using a [...] only when you eat or drink. Take xtih-kod-zknhwjc and prescription medicines only as told by your dentist. Watch your dental pain for any changes. Let your dentist know if symptoms get worse. This information is not intended to replace advice given to you by your health care provider. Make sure you discuss any questions you have with your health care provider. Document Revised: 11/26/2020 Document Reviewed: 11/26/2020 [employer] Patient Education 2022 [employer]. Follow Up Care 05/11/2023 21:26:40 With:Linda Sheppard DO Address: [address] [place], [place] [id number]- When:05/14/2023 [facility] 05-11-2023 Evaluation + Plan note Extrac roxann from: Title:ED Note Author:Violet Walters PA-C ate:05/11/23 1. Pain, dental (K08.89: Oth er specified disorders of teeth and supporting structures) Ordered: amoxicillin-clavulanate, = 1 tab(s), Oral, q12hr, X 7 day(s), # 14 tab(s), Refills(s) 0, Pharmacy: [facility], 160, cm, 05/11/23 21:53:00 EST, Height/Length Dosing, 110, kg, 05/11/23 21:53:00 EST, Weight Dosing chlorhexidine topical, 0.018 gm, 15 mL, Oral, BID, 480 mL, Refill(s) 0, (swish and spit; do not swallow), [facility], 160, cm, 05/11/23 21:53:00 EST, Height/Length Dosing, 110, kg, 05/11/23 21:53:00 EST, Weight Dosing 2. Infected dental caries (K02.9: Dental caries, unspecified) Ordered: amoxicillin-clavulanate, = 1 tab(s), Oral, q12hr, X 7 day(s), # 14 tab(s), Refills(s) 0, Pharmacy: [facility], 160, cm, 05/11/23 21:53:00 EST, Height/Length Dosing, 110, kg, 05/11/23 21:53:00 EST, Weight Dosing chlorhexidine topical, 0.018 gm, 15 mL, Oral, BID, 480 mL, Refill(s) 0, (swish and spit; do not swallow), [facility], 160, cm, 05/11/23 21:53:00 EST, Height/Length Dosing, 110, kg, 05/11/23 21:53:00 EST, Weight Dosing 3. First trimester (Z34.91: Encounter for supervision of normal , unspecified, first trimester) Periapical abscess without sinus (K04.7: Periapical abscess without sinus) Orders: ketorolac, 30 mg = 1 mL, Injection, IntraMuscular, Once, Stop date 05/11/23 23:31:00 EST, STAT, Start date 05/11/23 23:31:00 EST, 05/11/23 23:31:00 EST [facility] Hospital Discharge instructions* Discharge Instructions* Chet Berumen DO - 05/10/2023 11:50 AM EST Use amoxicillin as prescribed. Use Tylenol as needed for pain. Follow-up with dentist as soon as possible. * Attachments The following attachments cannot be sent through Care Everywhere. * Tooth Decay (Maltese) * Tooth and Gum Pain (Maltese) [facility] History of Present illness Narrative* Angelito Norris, MATIAS - 05/15/2021 8:39 AM EST Patient [...] Supplements: Reviewed Current Outpatient Medications Ordered in [facility] Medication Sig Dispense Refill baclofen [...] mg by mouth daily . No current [facility]-ordered facility-administered medications on file. Lab Results [...] - 6-7 PM- crock pot meals- goulash; Khmer chicken; spicy rice with chicken and beans; [...] calorie goals/day. Estimated Nutritional Needs: Calorie Needs: 9819-1738 kcals/day (MSJ x 1.3AF -500-1000 to promote gradual weight loss) Patient/Family Education: Learner: family and patient Readiness: action - ready to set action plan and implement goals Barriers to Learning: none Method: explanation and handout Response: verbalizes understanding Expected Adherence: good Education Materials Provided: Healthy Meal Planning handout ([facility]), Goal Sheet, 1,616-Oyasxvd1-Ubq Menus (NCM), 1,800-Calorie 5-Day Menus (NCM), Weight Loss Tips (NCM) Monitoring/Evaluation: Lab results, weight, food recall, meal planning, goal achievement, physical activity, medication management. This documentation has been sent to the referring healthcare provider. Angelito Harvey RDN, LD Personal Office documented in this [id number] History of Present illness Narrative* Farhat Vang [...] C hepatitis virus. Patient was referred to land manager and the recommendation was made for [...] improve, for Follow Up. documented in this [id number] History of Present illness Narrative* Farhat Vang [...] medications that are prescribed by her psychiatric technician. She has 4 children at home she [...] Nutrition Services Tia was seen today [facility]. Diagnoses and all orders for this [...] Not difficult at all documented in this [id number] History of Present illness Narrative* Holland Ann [...] Procedure: SECTION; Surgeon: Roslyn Stevenson MD; Location: [facility] OR; Service: OBGYN SECTION, LOW TRANSVERSE 3 [...] Friends and Family: Not on file Attends [employer]: Not on file Active Member of [...] Report 12/29/2020 Final Value:Gynecologic Cytology Report Case: [id number] Authorizing Provider: Germania Valentino, Collected: 12/29/2020 11:09 AM ARABIC TRANSLATOR Ordering Location: [facility] [employer]UIT [employer]NER - An Received: 12/30/2020 12:03 PM [facility] First Screen: Violet Craig Rescreen: Talya [...] from every slide are reviewed by a foreign exchange dealer. Specimen processing and Primary Screening performed at: [place] [address] HPV Results 12/29/2020 Final Value:This result contains [...] physician. Holland Ann MD documented in this [id number] History of Present illness Narrative* Jeimy Tan LPN - 01/15/2021 11:17 AM EST This nurse acted as a bilingual school psychologist for a rectal exam by Dr. Ann for Tia. Tia verbalized consent to be examined, appeared comfortable and tolerated the exam well. documented in this [id number] History of Present illness Narrative* Neris Ulloa, [...] oatmeal packet. Snack celery + PB or Sinhala yogurt or green peppers. Lunch - will be light if full from snack and may have an early dinner. Dinner - pork chops, steamed vegetables. Snack - Sinhala yogurt or vegetables or watermelon. Beverages - [...] prescription for Current Outpatient Medications Ordered in [facility] Medication Sig Dispense Refill blood [...] BLOOD SUGAR FOUR TIMES DAILY No current [facility]-ordered facility-administered medications on file. SMBG [...] the referring healthcare provider. documented in this [id number] Instructions* Patient Instructions* Zelda Bautista CNP - [...] to renew/prescribe testing supplies. documented in this [id number] History of Present illness Narrative* Zelda Bautista [...] visit with us. The patient did bring Weiju sugar meter with her for download today however there is not many readings on it. She states she started a new job at [employer] and does noise get breaks to check [...] 4. Patient to cont. To follow with non categorical preschool teacher 5. Patient will require 2 hour 75 gram OGTT 8-12 weeks after delivery. 6. Follow-up in 2 weeks. Risks and potential complications of diabetes were reviewed with the patient. Electronically signed by Zelda MARIN 07/09/2110:03 AM documented in this [id number] History of Present illness Narrative* Lelo Gallegos MD - 06/09/2020 11:18 AM EDT Subjective: Tiajv Moorenett 30 y.o. female being seen today for [...] month during . While awaiting appointment with non categorical preschool teacher, patient provided with details of GDM diet, [...] 1 hour post prandial. 4. Referral to non categorical preschool teacher 5. Patient will require 2 hour 75 gram OGTT 8-12 weeks after delivery. 6. Follow-up in 2 weeks. Risks and potential complications of diabetes were reviewed with the patient. documented in this encounterTennesseeHealthEvaluation + Plan note No data available for this section [facility]* Diagnosis Diet controlled gestational diabetes mellitus (GDM) in second trimester [facility] Diagnosis Acute frontal sinusitis, recurrence not specified- Primary documented in this encounter [employer] Phone: evaluation note* Diagnosis Diet controlled gestational diabetes mellitus (GDM) in third trimester- Primary [facility] Diagnosis Diet controlled gestational diabetes mellitus (GDM) in third trimester [facility]* Diagnosis Viral URI- Primary Acute upper respiratory infections of unspecified site documented in this encounter [employer] Phone: evaluation note* Diagnosis Strain of rhomboid muscle, initial encounter Chest wall muscle strain, initial encounter documented in this encounter [employer] Phone: evaluation note* Diagnosis Viral syndrome- Primary Unspecified viral infection, in conditions classified elsewhere and of unspecified site documented in this encounter [employer] Phone: evalmqtrig note* Diagnosis Hemorrhoids, unspecified hemorrhoid type [facility]* Diagnosis COVID-19- Primary Omphalitis in adult Unspecified local infection of skin and subcutaneous tissue documented in this encounter [employer] Phone: evaluation note* Diagnosis Encounter for general adult medical examination with abnormal findings- Primary Anxiety and depression History of opioid abuse (HCC) Morbid obesity with body mass index (BMI) of 40.0 or higher (HCC) documented [facility]* Diagnosis Anxiety and depression- Primary At risk for obstructive sleep apnea Chronic bilateral low back pain without sciatica Hepatitis C antibody positive in blood Body mass index 40.0-44.9, adult (HCC) Body Mass Index 40.0-44.9, adult History of opioid abuse (HCC) documented [facility]* Diagnosis Morbid obesity with body mass index (BMI) of 40.0 or higher (HCC) [facility]* Diagnosis Acute pharyngitis, unspecified etiology- Primary [facility] Phone: [facility]* Diagnosis Acute bronchitis, unspecified organism- Primary documented in this encounter [facility] [employer] Phone: evaluation note* Diagnosis Masseter muscle spasm- Primary Spasm of muscle Other acute postprocedural pain documented in this encounter [facility] [employer] Phone: evaluation note* Diagnosis Dry socket- Primary Alveolitis of jaw documented in this encounter [facility] [employer] Phone: evaluation note* Diagnosis Sprain of right ankle, unspecified ligament, initial encounter- Primary documented in this encounter [facility] [employer] note* Diagnosis Toothache- Primary Unspecified disorder of the teeth and supporting structures Dental decay Unspecified dental caries documented in this encounter [facility] [employer] note* Diagnosis 26 weeks gestation of - Primary state, incidental documented in this encounter [facility] note* Diagnosis Third trimester state, incidental 35 weeks gestation of Request for sterilization Dichorionic diamniotic twin in third trimester documented in this encounter [facility] Dis[facility] instructions* Instructions* Anuj uQinn MD - 06/24/2020 Although many hvov-ymt-frzcimp cough cold flu sinus medications are safe in , I would contact her FRUIT [employer]INNER office in [facility] to verify what your FRUIT THINNER group feels a safe in . Tylenol [...] be sent through Care Everywhere. * Sinusitis (Maltese) [facility]Brainlike Phone: Hospital Discharge instructions* Attachments The following attachments cannot be sent through Care Everywhere. * URI (Upper Respiratory Infection) (Maltese) documented in this [facility] Phone: Hospital Discharge instructions* Attachments The following attachments cannot be sent through Care Everywhere. * Muscle Strain (Maltese) documented in this [employer] Phone: Hospital Discharge instructions* Attachments The following attachments cannot be sent through Care Everywhere. * Viral Infections (Maltese) documented in this [employer] Phone: Hospital Discharge instructions* Attachments The following attachments cannot be sent through Care Everywhere. * Coronavirus Disease (COVID-19): General Info (Maltese) * Coronavirus Disease (COVID-19): Isolation (Maltese) * Piercing: Infection (Maltese) documented in this [employer] Phone: Hospital Discharge instructions* Instructions* Clark Moser MD - 07/22/2021 Use Tylenol or Motrin for pain. Take amoxicillin twice a day. Amoxicillin treats strep throat, ear infections, bronchitis and pneumonia. Call primary care doctor for close follow-up. * Attachments The following attachments cannot be sent through Care Everywhere. * Sore Throat (Maltese) documented in this [employer] Phone: Hospital Discharge instructions* Attachments The following attachments cannot be sent through Care Everywhere. * Bronchitis (Maltese) documented in this [employer] Phone: Hospital Discharge instructions* Attachments The following attachments cannot be sent through Care Everywhere. * Cramp: Muscle (Maltese) * Pain Post-Surgery: Acute (Maltese) documented in this [employer] Phone: Hospital Discharge instructions* Attachments The following attachments cannot be sent through Care Everywhere. * [place] Tooth Extraction: Post-op (Maltese) documented in this [employer] Phone: Hospital Discharge instructions No data available for this section [facility]* Attachments The following attachments cannot be sent through Care Everywhere. * Ankle Sprain (Maltese) [facility]* Attachments The following attachments cannot be sent through Care Everywhere. * : Weeks 26 to 30 (Maltese) * : When to Call (After 20 Weeks): General Info (Maltese) * : Twins: General Info (Maltese) documented [facility] No data available for this section [facility] for referral (narrative)* Consultation (Routine) Status Reason Specialty Diagnoses / Procedures Referred By Contact Referred To Contact Authorized Nutrition Diagnoses Diet controlled gestational diabetes mellitus (GDM) in second trimester Lelo Gallegos MD [address] [place] [address] [address] [place] [id number] [facility] for visit Narrative* Consultation (Routine) - Pending Review Specialty Diagnoses / Procedures Referred By Contac t Referred To Contact Gastroenterology Diagnoses Hemorrhoids, unspecified hemorrhoid type Germania Galaviz, ARABIC TRANSLATOR [address] [place] [address] Holland Ann MD [address] [place] [address] Referral ID Status Reason Start Date Expiration Date V isits Requested Visits Authorized [id number] Pending Review 12/29/2020 01/14/2022 1 1 [facility] Assessments Diagnosis Accidental overdose of heroin, initial [...] mellitus (GDM) in second trimester Advance Directives Documents on File Type Date Recorded Patient Director Of Restaurant Expl anation Advance Directives and Living Will Power of Valving Machine Operator Documents on File Type Date Recorded Patient Director Of Restaurant Expl anation Advance Directives and Living Will 06/14/2019 7:25 AM does not have 3/13/2 0 Latest Code Status on File Code Status Date Activated Date Inactivated Comments Full Code 06/15/2019 9:29 AM 06/17/2019 4:38 PM Full Code - Unverified 06/14/2019 8:35 AM 06/15/2019 9:29 AM Documents on File Type Date Recorded Patient Director Of Restaurant Expl anation Advance Directives and Living Will 06/14/2019 7:25 AM does not have 3/13/2 0 Latest Code Status on File Code Status Date Activated Date Inactivated Comments Full Code 06/15/2019 9:29 AM 06/17/2019 4:38 PM Full Code - Unverified 06/14/2019 8:35 AM 06/15/2019 9:29 AM Documents on File Type Date Recorded Patient Director Of Restaurant Expl anation Advance Directives and Living Will 06/20/2019 1:10 PM does not have 3/13/2 0 Documents on File Type Date Recorded Patient Director Of Restaurant Expl anation ACP-Advance Directive ACP-Power of Valving Machine Operator Documents on File Type Date Recorded Patient Director Of Restaurant Expl anation Advance Directives and Living Will 06/20/2019 1:10 PM does not have 3/13/2 0 Documents on File Type Date Recorded Patient Director Of Restaurant Expl anation Advance Directives and Living Will 08/28/2020 5:58 AM does not have 3/13/2 0 Latest Code Status on File Code Status Date Activated Date Inactivated Comments Full Code 08/28/2020 11:15 AM 08/30/2020 11:53 AM Full Code 08/28/2020 5:31 AM 08/28/2020 11:07 AM Full Code 06/15/2019 9:29 AM 06/17/2019 4:38 PM Documents on File Type Date Recorded Patient Director Of Restaurant Expl anation Advance Directives and Living Will 08/28/2020 5:58 AM does not have 0 Latest Code Status on File Code Status Date Activated Date Inactivated Comments Full Code 08/28/2020 11:15 AM 08/30/2020 11:53 AM Full Code 08/28/2020 5:31 AM 08/28/2020 11:07 AM Full Code 06/15/2019 9:29 AM 06/17/2019 4:38 PM Documents on File Type Date Recorded Patient Director Of Restaurant Expl anation Advance Directives and Livin g Will 05/15/2021 12:00 AM Latest Code Status on File Code Status Date Activated Date Inactivated Comments Full Code 10/05/2023 9:02 PM Hospital Course * Savita Stiles PA-C - 06/17/2019 10:12 AM EDT MEDONE DISCHARGE SUMMARY Tia Levin Account: [id number] Admitted: 06/14/2019 Discharge Date/Time: 06/17/19 / 10:12 [...] heroine use who presented to [facility] 06/14/19 with complaints of abdominal pain and nausea. [facility] AST 1116 ALT 665 Alk phos 255 T bili 6.5 Lipase 8. CTAP revealed pericholecystic fluid vs GB wall thickening, no gallstones or hepatic pathology noted. Patient transferred to [facility] 06/14/2019 for further treatment and evaluation. [...] chart for all vitals, diagnostic data, and splunk consultant notes. I discussed patient's case with Dr. Gregorio, Dr. Hay (GI) and RN. Discharge Medications Medication List ASK your doctor about these medications naltrexone microspheres Commonly known as: VivitroL Inject 380 (three hundred eighty) mg into the shoulder, thigh, or buttocks every 30 (thirty) days . Physician(s) Family: Physician No, Phone: None, Address: [facility] Follow Up: Javier Hay MD [address] [place], [place] [id number] Follow up Repeat weekly CBC, CMP and PT/INR for the next 3-4 weeks then follow up out patient with Dr. Hay. Laboratory Follow Up by [facility]: Weekly labs for CBC, CMP, PT/INR Additional Information: Patient seen and examined day of discharge. For more information regarding patient's care, including complete radiology reports, please contact [facility] at Patient instructions, including activity, [...] heroine use who presented to [facility] 06/14/19 with complaints of abdominal pain and nausea. H AST 1116 ALT 665 Alk phos 255 T bili 6.5 Lipase 8. CTAP revealed pericholecystic fluid vs GB wall thickening, no gallstones or hepatic pathology noted. Patient transferred to [facility] 06/14/2019 for further treatment and evaluation. [...] EDT RESOURCES FOR PRIMARY CARE [facility] Primary Care Closed Opens tomorrow [address], [place] [address] [employer] [facility] [employer] [place] [address] [place] [address] [facility] Walk-In Care Closed Opens tomorrow 11 AM [address] [place] [address] documented in this encounter* Instructions* Adia Dillon, [...] Opioid Use Disorder: Medication-Assisted Treatment: General Info (Maltese) documented in this encounter* Attachments The following attachments cannot be sent through Care Everywhere. * Bacterial Vaginosis (Maltese) * Trichomoniasis (Maltese) documented in this encounter* Attachments The following attachments cannot be sent through Care Everywhere. * Dental Surgery: Generic: Post-op (Maltese) documented in this encounter* Attachments The following attachments cannot be sent through Care Everywhere. * Bronchitis (Maltese) * Pneumonia (Maltese) documented in this encounter* Attachments The following attachments cannot be sent through Care Everywhere. * Poison [place] - [place] - and [place] (Maltese) documented in this encounter History of Present Illness * Javier Hay MD - 06/17/2019 9:59 AM EDT GASTROENTEROLOGY DAILY PROGRESS NOTE 1 Patient Name: Tia Levin MR #: [id number] Assessment/Plan: Elevated LFTs Assessment & Plan 29yo F with PMHx IVDU and hepatitis C who presents from [facility] with elevated LFTs and imaging c/f possible acute cholecystitis. GI consulted for further evaluation. - LFTs: AP 255, AST/ALT 665/1116, TB 6.5 (normal 02/2019) - CT w IVC ([facility]): moderate GBW thickening w pericholecystic fluid [...] Auguste MD - 06/17/2019 7:41 AM EDT [facility] Inpatient Progress Note 06/17/2019 Tia Levin 1990 [id number] Assessment/Plan: Tia Levin is a 29 y.o. female with a history of amphetamine and heroine use who presented to [facility] 06/14/19 with complaints of abdominal pain and nausea. [facility] AST 1116 ALT 665 Alk phos 255 T bili 6.5 Lipase 8. CTAP revealed pericholecystic fluid vs GB wall thickening, no gallstones or hepatic pathology noted. Patient transferred to [facility] 06/14/2019 for further treatment and evaluation. 1. Acute Liver Injury: [facility] AST 1116 ALT 665 Alk phos [...] labs, diagnostics, vitals including pulse ox, and splunk consultant/other provider recommendations. No acute issues overnight [...] Results from last 7 days Lab Units 06/17/1928 06/16/1963106/15/19456 SODIUM mmol/L 138 139 136 POTASSIUM mmol/L [...] 2 Patient Name: Tia Levin MR #: [id number] Assessment/Plan: Elevated LFTs Assessment & Plan 29yo F with PMHx IVDU and hepatitis C who presents from [facility] with elevated LFTs and imaging c/f [...] 7 days Lab Units 06/16/1932 06/15/1945606/14/19 1037 SODIUM mmol/L 139 136 137 POTASSIUM [...] Auguste MD - 06/16/2019 9:38 AM EDT [facility] Inpatient Progress Note 06/16/2019 Tia Levin 1990 [id number] Assessment/Plan: Tia Levin is a 29 y.o. female with a history of amphetamine and heroine use who presented to [facility] 06/14/19 with complaints of abdominal pain and nausea. [facility] AST 1116 ALT 665 Alk phos 255 T bili 6.5 Lipase 8. CTAP revealed pericholecystic fluid vs GB wall thickening, no gallstones or hepatic pathology noted. Patient transferred to [facility] 06/14/2019 for further treatment and evaluation. [...] recent labs, diagnostics, vitals including pulseox, and splunk consultant/other provider recommendations. No acute issues overnight [...] Lab Units 06/16/19 0632 06/15/19 04506/14/19 1037 ALT U/L 825* 888* 808* AST U/L 544* 667* 592* ALK PHOS U/L 217* 193* 183* BILIRUBIN TOTAL mg/dL 5.9* 5.2* 4.9* Results from last 7 days Lab Units 06/14/19 1037 INR 1.3* * Aisha Hare, MARK - 06/15/2019 12:17 PM EDT GASTROENTEROLOGY DAILY PROGRESS NOTE 2 Patient Name: Tia Levin MR #: [id number] Assessment/Plan: Elevated LFTs Assessment & Plan 29yo F with PMHx IVDU and hepatitis C who presents from [facility] with elevated LFTs and imaging c/f [...] Pruitt MD - 06/15/2019 10:43 AM EDT [facility] Inpatient Progress Note 06/15/2019 Tia Levin 1990 [id number] Assessment/Plan: Tia Levin is a 29 y.o. female with a history of amphetamine and heroine use who presented to [facility] 06/14/19 with complaints of abdominal pain and nausea. [facility] AST 1116 ALT 665 Alk phos 255 T bili 6.5 Lipase 8. CTAP revealed pericholecystic fluid vs GB wall thickening, no gallstones or hepatic pathology noted. Patient transferred to [facility] 06/14/2019 for further treatment and evaluation. [...] have a PCP and refused a case assembler consult for assistance. Verified insurance [...] 10:48 AM EDT [facility]. After provider review, I [...] today though she did not answer. Called [employer] number 5 times and home phone once, [...] food assistance and plans to enroll in [employer]. Pt has a history of drug addiction [...] daily (lemon water) Occasional iced coffee at [employer]. Was drinking a lot of Mountain Dew and Energy drinks prior to but stopped. Meals Away From Home - most days, fast food Past Medical History: Past Medical History: Diagnosis Date Anxiety Depression Infectious viral hepatitis hep c PTSD (Post-Traumatic Stress Disorder) History From: History obtained from patient and chart review. Current/Pertinent Medications: prescription for Current Outpatient Medications Ordered in [facility] Medication Sig Dispense Refill amoxicillin [...] daily . 90 tablet 3 No current [facility]-ordered facility-administered medications on file. SMBG [...] mass index (BMI) of 40.0 or higher ([facility]) Farhat Vang MD [address] [place] [address] Referral ID Status Reason Start Date Expiration Date Visits Requested Visits Authorized [id number] Authorized Specialty Services Required/Pat ient's Best Interest 04/16/2021 04/16/2022 1 1 Specialty Diagnoses / Procedures Referred By Contac t Referred To Contact Neurosurgery Diagnoses Chronic bilateral low back pain without sciatica Farhat Vang MD [address] [place] [address] Carina Kline MD [facility] [place] [address] Referral ID Status Reason Start Date Expiration Date Visits Requested Visits Authorized [id number] Authorized Specialty Services Required/Pat ient's Best Interest 05/14/2021 05/14/2022 1 1 Specialty Diagnoses / Procedures Referred By Contac t Referred To Contact Rehabilitation Diagnoses Chronic bilateral low back pain without sciatica Farhat Vang MD [address] [facility] [address] [place] [address] Referral ID Status Reason Start Date Expiration Date Visits Requested Visits Authorized [id number] Authorized Specialty Services Required/Pat ient's Best Interest 05/14/2021 05/14/2022 1 1 Specialty Diagnoses / Procedures Referred By Joey grimes Referred To Contact Diagnoses At risk for obstructive sleep apnea Farhat Vang MD [address] [facility] [address] [place] [address] Gabriel Jacinto MD [address] [place] [address] Referral ID Status Reason Start Date Expiration Date Visits Requested Visits Authorized [id number] Authorized Specialty Services Required/Pat ient's Best Interest 05/14/2021 05/14/2022 1 1 Additional Source Comments Reason for Visit (unrecogniz ed section and content) Reason Comments Drug Overdose Pt was brought in by [facility] for heroin OD. Prior to arrival [facility] [...] in second trimester Lelo Gallegos MD [address] [place] [address] [facility] [address] [place] [address] Reason Comments Gestational Diabetes Status Reason Specialty Diagnoses / Procedures Referred By Contact Referred To Contact Closed Endocrinology Diagnoses Diet controlled gestational diabetes mellitus (GDM) in second trimester Roslyn Stevenson MD [address] [facility] [address] [place] [address] Lelo Gallegos MD [address] [place] [address] Reason Comments Pharyngitis sore throat and head [...] mass index (BMI) of 40.0 or higher ([facility]) Farhat Vang MD [address] [facility] [address] [place] [address] [facility] [address] [place] [address] Referral ID Status Reason Start Date Expiration Date Visits Requested Visits Authorized [id number] Authorized Specialty Services Required/Pat ient's Best Interest [...] Patient states she is 7 weeks . Reason Comments Routine Visit Carli Sims PA-C - 06/14/2019 7:29 AM EDT H&P Notes (unrecognized sect ion and content) [facility] History and Physical Note 06/14/19 Tia Levin 1990 [id number] Assessment/Plan: Tia Levin is a 29 y.o. female with a history of amphetamine and heroine use who presented to [facility] 06/14/19 with complaints of abdominal pain and nausea. [facility] AST 1116 ALT 665 Alk phos 255 T bili 6.5 Lipase 8. CTAP revealed pericholecystic fluid vs GB wall thickening, no gallstones or hepatic pathology noted. Patient transferred to [facility] 06/14/2019 for further treatment and evaluation. 1. Elevated LFTs: [facility] AST 1116 ALT 665 Alk phos 255 T bili 6.5 (normal 02/2019). [facility] CTAP as noted above. RUQ U/S [...] opiates and cocaine. Pt reported last use 4/8/20. Advised cessation. 4. Hepatis C: known history. [...] heroine use who presented to [facility] 06/14/19 with complaints of abdominal pain and nausea. [facility] AST 1116 ALT 665 Alk phos 255 T bili 6.5 Lipase 8. CTAP revealed pericholecystic fluid vs GB wall thickening, no gallstones or hepatic pathology noted. Patient transferred to [facility] 06/14/2019 for further treatment and evaluation. [...] labs, diagnostics, vitals including pulse ox, and splunk consultant/other provider recommendations. Discussed with collaborating physician [...] file Gets together: Not on file Attends baptist service: Not on file Active member of [...] reviewed, including documentation from previous hospitalizations and splunk consultant recommendations as summarized below. Briefly, patient [...] Name: Tia Levin Admit Date: MR #: [id number] : 1990 Senior addendum 29 y/o F [...] Hepatitis C, and hx of presents to [facility] with jaundice and abdominal pain. -RUQ [...] Fleming MD General Surgery, PGY 2 Pager# [phone] 06/16/2019, 10:43 AM After 5 PM and on Weekends, please page [phone] (Surgery Doctor'S Assistant television presenter) History of Present Illness: Patient presented for [...] file Gets together: Not on file Attends baptist service: Not on file Active member of [...] patient. I discussed the case with the resident/EQUIPMENT SPECIALIST and agree with the findings and plan as documented in his/her note and/or any note I supplied. Associated Order(s): IP CONSULT TO GASTROENTEROLOGY GASTROENTEROLOGY CONSULT NOTE 4 Patient Name: Tia Levin Admit Date: MR #: [id number] : 1990 Physicians: Physician Judy (Family); Brie Moreno MD (Referring) Consult Ordered By: Franny Sims PA-C Assessment and Plan: Other Elevated LFTs Assessment & Plan 29yo F with PMHx IVDU and hepatitis C who presents from [facility] with elevated LFTs and imaging c/f [...] hepatitis C who presents from [facility] with elevated LFTs and imaging c/f [...] she has been in and out of [facility]pc over past 3mo. She denies EtOH. Denies NSAID and significant Tylenol use. Denies new medications, herbal supplements, or recent ATBx. She denies any known FH of liver disease or GI related malignancies. Current LFTs include: AP 255, AST/ALT 665/1116, TB 6.5 (of note were normal in 02/2019). CTa/p w IVC at [facility] demonstrated moderate GBW thickening w pericholecystic [...] file Gets together: Not on file Attends baptist service: Not on file Active member of [...] Invalid input(s): CO2, LABALBU Aisha Hare, MARK [facility] (for staff use only) [...] reviewed, including documentation from previous hospitalizations and splunk consultant recommendations as summarized below. Briefly, patient [...] hepatitis C who presents from [facility] with elevated LFTs and imaging c/f [...] secti on and content) ED PROVIDER NOTE [facility] EMERGENCY [facility] NAME: Tia Levin AGE: 29 y.o. : 1990 VISIT DATE: 08/13/2019 CSN: [id number] PCP: Physician No Chief Complaint Patient presents with Drug Overdose This is a 29-year-old female brought to the ER via EMS for evaluation. Time my exam patient is alert and oriented. She states she was in the [employer] parking lot bent over in her car [...] file Gets together: Not on file Attends baptist service: Not on file Active member of [...] nursing note reviewed. Exam conducted with a bilingual school psychologist present (Nurses at the bedside). Constitutional: General: [...] for helping people with drug addiction. [address] [facility] [address] Contact information for after-discharge care Follow-up information has not been specified. Adia Dillon CNP 08/13/191948 Pt brought in by [facility], states she was found by [facility] unresponsive [...] 08/21/2019 Joslyn allen DATE CREATED AUTHOR AUTHOR'S RITESH ARENAS 02/15/2021 [facility] DATE CREATED AUTHOR AUTHOR'S ORGANIZ ATION 05/18/2021 [facility] DATE CREATED AUTHOR AUTHOR'S ORGANIZ ATION 07/02/2021 [facility] DATE CREATED AUTHOR AUTHOR'S ORGANIZ ATION 07/09/2021 [facility] DATE CREATED AUTHOR AUTHOR'S ORGANIZ ATION 07/05/2022 [facility] DATE CREATED AUTHOR AUTHOR'S ORGANIZ ATION 05/14/2023 [facility] DATE CREATED AUTHOR AUTHOR'S ORGANIZ ATION 10/07/2023 [facility] DATE CREATED AUTHOR AUTHOR'S ORGANIZ ATION 12/09/2023 [facility] DATE CREATED AUTHOR AUTHOR'S ORGANIZ ATION 12/10/2023 [facility] Ordered Prescriptions (unrec ognized section and content) [...] 5 days. 2007 (Given - Provid er: Nomra Stark RN) Scheduled Medication Order 10/10/2021 10/11/2021 [...]
Care Teams (unrecognized sec tion and content) Freight Shipping Agent Relationship Specialty Start Date End Date No, Physician [facility] PCP - General 12/29/20 Germania Galaviz, ARABIC TRANSLATOR [address] [place] [address] Nurse Practitioner Obstetrics/Gynecology 11/01/19 Freight Shipping Agent Relationship Specialty Start Date End Date No, Physician [facility] PCP - General 12/29/20 Germania Galaviz, ARABIC TRANSLATOR [address] [place] [address] Nurse Practitioner Obstetrics/Gynecology 11/01/19 Freight Shipping Agent Relationship Specialty Start Date End Date Farhat Vang MD [address] [facility] [address] [place] [address] PCP - General Family Medicine 04/16/21 Germania Galaviz, ARABIC TRANSLATOR [address] [place] [address] Nurse Practitioner Obstetrics/Gynecology 11/01/19 Radha Pantoja MD [address] [place] [address] Labor Relations Representative Obstetrics/Gynecology 02/02/21 Yvonne Santos MD [address] [place] [address] Labor Relations Representative Obstetrics/Gynecology 02/02/21 Regla Dias CNM [address] [place] [address] [employer] Obstetrics/Gynecology 02/02/21 Freight Shipping Agent Relationship Specialty Start Date End Date [place], Narcis Dawit, MD [address] [address] PCP - General Family Medicine 04/16/21 Germania Galaviz, ARABIC TRANSLATOR [address] [place] [address] Nurse Practitioner Obstetrics/Gynecology 11/01/19 Radha Pantoja MD [address] [place] [address] Labor Relations Representative Obstetrics/Gynecology 02/02/21 Yvonne Santos MD [address] [place] [address] Labor Relations Representative Obstetrics/Gynecology 02/02/21 Regla Dias CNM [address] [place] [address] [employer] Obstetrics/Gynecology 02/02/21 Freight Shipping Agent Relationship Specialty Start Date End Date Farhat Vang MD [address] [address] PCP - General Family Medicine 04/16/21 Germania Galaviz, ARABIC TRANSLATOR [address] [facility] [place] [address] Nurse Practitioner Obstetrics/Gynecology 11/01/19 Radha Pantoja MD [address] [place] [address] Labor Relations Representative Obstetrics/Gynecology 02/02/21 Yvonne Santos MD [address] [place] [address] Labor Relations Representative Obstetrics/Gynecology 02/02/21 Regla Dias CNM [address] [place] [address] [employer] Obstetrics/Gynecology 02/02/21 Freight Shipping Agent Relationship Specialty Start Date End Date Linda Sheppard, DO [address] [place] [address] PCP - General Family Medicine 09/04/22 Freight Shipping Agent Relationship Specialty Start Date End Date Linda Sheppard, DO [address] [place] [address] PCP - [facility] 09/04/22 Freight Shipping Agent Relationship Specialty Start Date End Date Linda Sheppard, DO [address] [place] [address] PCP - General Family Medicine 09/04/22 [...] BE BASED ON THE PRIMARY CLINICAL RECORDS. [employer] [facility]. provides no warranty or guarantee of the accuracy or completeness of information in this document.
[2023-12-15 06:40] LABS: Basophils Percent Auto 0.4 % (0.2-2.0); Eosinophils Percent Auto 0.4 % (0.9-7.0); Hematocrit 29.4 % (36.0-48.0); Hemoglobin 9.2 g/dL (12.0-16.0); Immature Granulocytes Abs Auto 0.17 10^3/uL (0.00-0.03); Immature Granulocytes Pct Auto 1.6 % (0.0-0.5); Lymphocytes Percent Auto 18.8 % (20.5-60.0); Mean Corpuscular HGB Conc 31.3 g/dL (29.9-35.2); Mean Corpuscular Hemoglobin 24.2 pg (26.7-34.0); Mean Corpuscular Volume 77.4 fL (81.0-99.0); Monocytes Absolute Auto 0.7 10^3/uL (0.3-0.8); Neutrophils Absolute Auto 7.4 10^3/uL (1.4-6.5); Neutrophils Percent Auto 71.8 % (43.0-75.0); Platelet Count 268 10^3/uL (150-450); Red Cell Distribution Width 14.6 % (11.0-15.0); White Blood Count 10.4 10^3/uL (4.0-11.0)
[2023-12-15 06:48] LABS: Bilirubin Urine NEGATIVE (NEGATIVE); Blood Urine NEGATIVE (NEGATIVE); Clarity Urine CLEAR (CLEAR); Color Urine YELLOW (YELLOW); Glucose Urine UA NEGATIVE (NEGATIVE); Ketones Urine 40 mg/dL (NEGATIVE); Leukocyte Esterase Urine NEGATIVE (NEGATIVE); Nitrite Urine NEGATIVE (NEGATIVE); Protein Urine NEGATIVE (NEG/TRACE); Specific Gravity Urine >=1.030 (1.005-1.025)
[2023-12-15 06:58] LABS: Amphetamine Screen Urine NEGATIVE (NEGATIVE); Barbiturates Screen Urine NEGATIVE (NEGATIVE); Benzodiazepines Screen Urine NEGATIVE (NEGATIVE); Buprenorphine Screen Urine NEGATIVE (NEGATIVE); Cannabinoid Screen Urine NEGATIVE (NEGATIVE); Cocaine Screen Urine NEGATIVE (NEGATIVE); Methadone Screen Urine NEGATIVE (NEGATIVE); Methamphetamines Screen Urine NEGATIVE (NEGATIVE); Opiate Screen Urine NEGATIVE (NEGATIVE); Oxycodone Screen Urine NEGATIVE (NEGATIVE); Phencyclidine Screen Urine NEGATIVE (NEGATIVE); Tricyclic Antidepressant Urine NEGATIVE (NEGATIVE)
[2023-12-15 07:02] LABS: Bacteria Urine MODERATE #/HPF (NONE SEEN); Cast Seen? NONE SEEN #/LPF (NONE SEEN); Crystals Seen? None Seen #/HPF (None Seen); Mucus Urine MODERATE (NONE SEEN); RBC Urine NONE SEEN #/HPF (0-2); Squamous Epithelial Cell Urine FEW #/LPF (NONE/RARE); Urine Culture Indicated YES; WBC Urine 0-2 #/HPF (NONE SEEN)
[2023-12-15] MEDS: METOCLOPRAMIDE HCL 10 MG/2 ML VIAL IVP (07:06)
[2023-12-15] MEDS: FAMOTIDINE/PF 20 MG/2 ML VIAL IV (07:07)
[2023-12-15] MEDS: CITRIC ACID/SODIUM CITRATE 30 ML SOLUTION ORACIT SHOHL'S SOLN PO (07:07)
[2023-12-15] MEDS: 0.9 % SODIUM CHLORIDE 1,000 ML 125 ML IV (07:14)
[2023-12-15] MEDS: CEFAZOLIN SODIUM/DEXTROSE,ISO 2 GM/50 ML PIGGYBACK IV ×2 (07:26→16:12)
[2023-12-15] MEDS: LACTATED RINGER'S SOLUTION 1,000 ML 50 ML IV ×2 (08:05→08:26)
--- NOTE | 2023-12-15 08:30 | P.ON_ITS ---
Brief Operative Note Date of procedure: 12/15/23 Pre-op diagnosis general: iup at 37wks, twin gestation, previous c/s's Post-op diagnosis: same as pre-op Procedure: NAME OF PROCEDURE: [ section with bilateral salpingectomy ] PROCEDURE: Patient was taken back to the Operating Room where she was given a spinal anesthesia with Duramorph without difficulty. She was prepped and draped in the normal sterile fashion. A Pfannenstiel skin incision was then made 2?cm above the symphysis pubis and carried down to underlying rectus fascia using a Bovie. The fascia was incised in the midline and extended laterally using Ramirez scissors. Two Oly clamps were placed on the superior aspect of the fascia and dissected off the underlying rectus muscles. The same was performed on the inferior aspect as well. The muscles were then in the midline. Periton eum was identified and entered bluntly. The peritoneum was then extended superiorly and inferiorly with good visualization of the bladder. The bladder blade was inserted. Vesicouterine peritoneum was identified, tented up, and entered with Metzenbaum scissors. A bladder flap was then created digitally. The bladder blade was reinserted. A low transverse incision was made on the patient's uterus and extended laterally digitally. The infant a was then delivered atraumatically after the bladder blade was removed in the cephalic position. twin b was delivered in breech presentation The cord a was clamped and cut. 2 clamps placed on twin b and 1 on twin a, Cord blood was obtained. The was handed off to awaiting team. The patient's placenta was spontaneously delivered. The uterus was then exteriorized. The uterus was cleared of all clots and debris. The bladder blade was reinserted. The patient's uterine incision was closed using #0 Vicryl in a running lock fashion. Excellent hemostasis was assured.? The rt tube was identified and grasped with babock, the ligasure was used to transect and ligate the tube in its entirity, this was done on the contralateral side as well. The uterus was then returned to the patient's abdomen. The patient's abdomen was copiously irrigated using warm saline. Peritoneal gutters were cleared of all clots and debris. Again excellent hemosta sis was assured. The patient's fascia was closed using #0 Vicryl in a running fashion. The patient's skin was closed using 4-0 Vicryl subcuticularly. The patient tolerated the procedure well. Sponge, lap, and needle counts were correct x2. The patient was taken to the Recovery Room in stable condition. Anesthesia: spinal Surgeon: Mark Dumont Library Clerk Talking Books: Irena Mcqueen Estimated blood loss (mL): 575 Pathology: other (tubes and placenta) Condition: stable Disposition: floor Urinary Catheter Management Urinary Catheter Management Urethral: Cath placed during this visit: no
--- NOTE | 2023-12-15 08:33 | PM.OBPRCCS ---
Procedure Pre-op/Post-op diagnoses: Pre-Op/Post-Op Diagnoses Operation Date: 12/15/23 07:30 <No data on this case meets the specified criteria> Procedure: Procedures Operation Date: 12/15/23 07:30 Actual Procedure Side Surgeon p Repeat with Bilateral Salpingectomy (Twins) Bilateral Mark Dumont DO Ballast Cleaning Operator: Irena Mcqueen Estimated blood loss (mL): 575 Disposition: PACU Anesthesia type: Spinal
[2023-12-15] MEDS: OXYTOCIN/0.9 % SODIUM CHLORIDE 20 UNITS/1,000 ML PLAST..BAG 125 UNIT IV (09:18)
[2023-12-15] MEDS: KETOROLAC TROMETHAMINE 30 MG/ML VIAL IVP ×2 (14:27→20:16)
[2023-12-15] MEDS: ACETAMINOPHEN 500 MG TABLET 1000 MG PO (16:13)
[2023-12-15] MEDS: ENOXAPARIN SODIUM 40 MG/0.4 ML SYRINGE SUBQ (21:39)
[2023-12-16] VITALS (16 sets, daily range): BP systolic 100–125; BP diastolic 51–72; PULSE 72–101; TEMP 36.3–36.7
[2023-12-16] MEDS: ACETAMINOPHEN 500 MG TABLET 1000 MG PO ×3 (03:18→18:28)
[2023-12-16] MEDS: KETOROLAC TROMETHAMINE 30 MG/ML VIAL IVP (03:19)
[2023-12-16 06:28] LABS: Basophils Percent Auto 0.2 % (0.2-2.0); Eosinophils Percent Auto 0.1 % (0.9-7.0); Immature Granulocytes Abs Auto 0.36 10^3/uL (0.00-0.03); Immature Granulocytes Pct Auto 2.1 % (0.0-0.5); Lymphocytes Absolute Auto 2.9 10^3/uL (1.2-3.8); Lymphocytes Percent Auto 16.5 % (20.5-60.0); Mean Corpuscular HGB Conc 31.9 g/dL (29.9-35.2); Mean Corpuscular Volume 78.4 fL (81.0-99.0); Mean Platelet Volume 10.7 fL (9.5-13.5); Monocytes Absolute Auto 1.5 10^3/uL (0.3-0.8); Monocytes Percent Auto 8.6 % (1.7-12.0); Neutrophils Absolute Auto 12.6 10^3/uL (1.4-6.5); Neutrophils Percent Auto 72.5 % (43.0-75.0); Platelet Count 226 10^3/uL (150-450); Red Blood Count 2.64 10^6/uL (4.20-5.40); Red Cell Distribution Width 14.6 % (11.0-15.0); White Blood Count 17.3 10^3/uL (4.0-11.0)
[2023-12-16 06:30] LABS: Hematocrit 20.7 % (36.0-48.0); Hemoglobin 6.6 g/dL (12.0-16.0)
[2023-12-16] MEDS: 0.9 % SODIUM CHLORIDE 250 ML 10 ML IV (08:00)
[2023-12-16] MEDS: IBUPROFEN 400 MG TABLET 800 MG PO ×3 (08:07→20:47)
--- NOTE | 2023-12-16 08:13 | PM.OBPN ---
OB - PN: Subj Subjective Patient comments: no complaints, pain well controlled and flatus present Exam Constitutional Vital Signs, click to edit/add: Last Vital Signs Temp 97.8 F 12/16/23 07:58 Pulse 95 H 12/16/23 07:58 Resp 18 12/16/23 07:58 BP 120/59 12/16/23 07:58 Pulse Ox 100 12/15/23 16:17 O2 Del Method Room Air 12/16/23 07:38 Documenting provider has reviewed patient's vital signs: yes Common normals: no apparent distress and oriented x3 General appearance: cooperative, comfortable and well kempt Nutritional appearance: obese Orientation/consciousness: Yes awake, Yes oriented to person, Yes oriented to place and Yes oriented to time HENMT Common normals: normocephalic and dentition normal Head and scalp: normal to inspection Eye Common normals: EOMs intact bilaterally General eye: normal appearance of both eyes Neck & C-Spine Common normals: full ROM General: normal visual inspection Lymph Lymphatic: no lymphadenopathy noted Chest Common normals: inspection of chest normal Respiratory Common normals: normal respiratory effort Effort & inspection: able to speak in complete sentences and symmetric chest movement Auscultation: clear to auscultation bilaterally Cardio Common normals: regular rate and regular rhythm Rate: regular rate Rhythm: regular rhythm GI Common normals: Normal to inspection, nondistended, normoactive bowel sounds present Inspection: normal to inspection Extremity Common normals: normal to inspection, full ROM and normal capillary refill Neuro Common normals: oriented x3 Sensorium/orientation: awake, alert, oriented to person, oriented to place and oriented to time Psych Common normals: mental status grossly normal, thought process normal, cooperative, affect normal, speech normal, activity/motor behavior normal, denies hallucinations, denies homicidal ideation and denies suicidal ideation Results Labs Labs: Short CBC 12/16/23 Range/Units 06:23 WBC 17.3 H (4.0-11.0) 10^3/uL Hgb 6.6 L* D (12.0-16.0) g/dL Hct 20.7 L* (36.0-48.0) % Plt Count 226 (150-450) 10^3/uL Urinary Catheter Management Urinary Catheter Management Urethral: Cath placed during this visit: yes Urethral indwelling: No Insertion date: 12/15/23 Insertion time: 07:45 OB - PN: A/P Assessment and Plan (1) Twin gestation in second trimester: (2) Low TSH level: (3) Fatigue during : (4) Low hemoglobin: Time Spent with Patient Time: Total time spent is greater than 50% in coordination of care (as documented) at patient's floor/unit and/or counseling patient: Total time spent with greater than 50% in coordination of care (as documented) at patient's floor/unit and/or counseling patient: less than 15 minutes
[2023-12-16] MEDS: DOCUSATE SODIUM 100 MG CAPSULE PO ×2 (08:52→20:47)
[2023-12-16] MEDS: OXYCODONE HCL 5 MG TABLET PO (16:08)
[2023-12-16] MEDS: ENOXAPARIN SODIUM 40 MG/0.4 ML SYRINGE SUBQ (20:47)
[2023-12-17] VITALS (7 sets, daily range): BP systolic 108–120; BP diastolic 66–73; PULSE 83–92; TEMP 36.3–36.8
[2023-12-17] MEDS: ACETAMINOPHEN 500 MG TABLET 1000 MG PO ×2 (03:43→13:08)
[2023-12-17] MEDS: IBUPROFEN 400 MG TABLET 800 MG PO ×4 (03:43→23:03)
[2023-12-17 06:47] LABS: Basophils Absolute Auto 0.1 10^3/uL (0.0-0.1); Basophils Percent Auto 0.6 % (0.2-2.0); Eosinophils Absolute Auto 0.2 10^3/uL (0.0-0.7); Eosinophils Percent Auto 1.5 % (0.9-7.0); Hematocrit 24.7 % (36.0-48.0); Hemoglobin 7.8 g/dL (12.0-16.0); Immature Granulocytes Abs Auto 0.41 10^3/uL (0.00-0.03); Immature Granulocytes Pct Auto 3.9 % (0.0-0.5); Lymphocytes Absolute Auto 2.7 10^3/uL (1.2-3.8); Lymphocytes Percent Auto 25.5 % (20.5-60.0); Mean Corpuscular HGB Conc 31.6 g/dL (29.9-35.2); Mean Corpuscular Volume 79.2 fL (81.0-99.0); Mean Platelet Volume 10.5 fL (9.5-13.5); Monocytes Absolute Auto 0.9 10^3/uL (0.3-0.8); Monocytes Percent Auto 8.4 % (1.7-12.0); Neutrophils Absolute Auto 6.2 10^3/uL (1.4-6.5); Neutrophils Percent Auto 60.1 % (43.0-75.0); Platelet Count 208 10^3/uL (150-450); Red Blood Count 3.12 10^6/uL (4.20-5.40); Red Cell Distribution Width 14.8 % (11.0-15.0); White Blood Count 10.4 10^3/uL (4.0-11.0)
[2023-12-17] MEDS: DOCUSATE SODIUM 100 MG CAPSULE PO ×2 (09:22→23:03)
--- NOTE | 2023-12-17 09:32 | PM.OBPN ---
OB - PN: Subj Subjective Patient comments: no complaints and pain well controlled [place] status: doing well Exam Constitutional Vital Signs, click to edit/add: Last Vital Signs Temp 98.2 F 12/17/23 07:40 Pulse 83 12/17/23 07:39 Resp 18 12/17/23 07:40 BP 108/66 12/17/23 07:39 Pulse Ox 100 12/15/23 16:17 O2 Del Method Room Air 12/17/23 07:40 Documenting provider has reviewed patient's vital signs: yes Common normals: no apparent distress Respiratory Common normals: normal respiratory effort Cardio Common normals: regular rate and regular rhythm GI Common normals: Normal to inspection, nondistended, normoactive bowel sounds present Extremity Common normals: no calf tenderness Results Labs Labs: Short CBC 12/17/23 Range/Units 06:33 WBC 10.4 (4.0-11.0) 10^3/uL Hgb 7.8 L (12.0-16.0) g/dL Hct 24.7 L (36.0-48.0) % Plt Count 208 (150-450) 10^3/uL Urinary Catheter Management Urinary Catheter Management Urethral: Cath placed during this visit: yes Urethral indwelling: No Insertion date: 12/15/23 Insertion time: 07:45 OB - PN: A/P Assessment and Plan (1) Twin gestation in second trimester: (2) Low TSH level: (3) Fatigue during : (4) Low hemoglobin: Plan - day: 2 Plan: routine postop care, discharge home and other (fu 1wk) Time Spent with Patient Time: Total time spent is greater than 50% in coordination of care (as documented) at patient's floor/unit and/or counseling patient: Total time spent with greater than 50% in coordination of care (as documented) at patient's floor/unit and/or counseling patient: less than 15 minutes
[2023-12-17] MEDS: OXYCODONE HCL 5 MG TABLET PO (18:20)
--- NOTE | 2023-12-17 19:37 | W.PC.ACHO ---
Registration Status: ADM IN Primary Language: Marshallese Preferred Language: Marshallese Report given 190. Active Medications Generic Name Dose Route Start Last Admin Trade Name Freq PRN Reason Stop Dose Admin Al Hydroxide/Mg Hydroxide 2,400 mg 12/15/23 08:33 Magnesium Hydroxide 2,400 Mg/10 Ml Oral.Susp PO Q6H PRN Dyspepsia Docusate Sodium 100 mg 12/16/23 09:00 12/17/23 09:22 Docusate Sodium 100 Mg Capsule PO 100 mg BID ARIANA Administration Enoxaparin Sodium 40 mg 12/15/23 21:00 12/16/23 20:47 Enoxaparin Sodium 40 Mg/0.4 Ml Syringe SUBQ 40 mg Q24H ARIANA Administration Sodium Chloride 1,000 mls @ 125 mls/hr 12/15/23 06:30 12/15/23 18:52 Sodium Chloride 0.9% 1,000 Ml IV Not Given .Q8H ARIANA Sodium Chloride 1,000 mls @ 125 mls/hr 12/15/23 09:00 12/15/23 18:54 Sodium Chloride 0.9% 1,000 Ml IV Not Given .Q8H ARIANA Promethazine HCl 25 mg/ Sodium 51 mls @ 204 mls/hr 12/15/23 08:33 Chloride IV Q6H PRN Nausea And Vomiting Lactated Ringer's 1,000 mls @ 50 mls/hr 12/15/23 09:00 12/15/23 08:05 Lactated Ringers IV 50 mls/hr .Q20H ARIANA Administration Lactated Ringer's 1,000 mls @ 50 mls/hr 12/15/23 09:00 12/15/23 08:26 Lactated Ringers IV 50 mls/hr .Q20H ARIANA Administration Sodium Chloride 250 mls @ 10 mls/hr 12/16/23 06:55 12/16/23 08:00 Sodium Chloride 0.9% 250 Ml IV 10 mls/hr .Q24H PRN Administration LINE CLEARANCE Ibuprofen 800 mg 12/16/23 08:30 12/17/23 15:40 Ibuprofen 400 Mg Tablet PO 800 mg Q6H ARIANA Administration Ondansetron HCl 4 mg 12/15/23 08:33 Ondansetron Pf 4 Mg/2 Ml Vial IV Q6H PRN Nausea And Vomiting Ondansetron HCl 4 mg 12/15/23 08:33 Ondansetron 4 Mg Rapdis Tablet PO Q6H PRN Nausea And Vomiting Oxycodone HCl 5 mg 12/15/23 08:33 12/17/23 18:20 Oxycodone Hcl 5 Mg Tablet PO 5 mg Q4H PRN Administration Breakthrough Pain Senna 17.2 mg 12/15/23 20:00 Sennosides 8.6 Mg Tablet PO QHS PRN Constipation Simethicone 80 mg 12/15/23 08:33 Simethicone 80 Mg Tab.Chew PO QID PRN Abdominal Distention Respiratory Oxygen Delivery Method Room Air Oxygen Delivery Method Room Air Oxygen Delivery Method Room Air Cardiology Heart Sounds Strong,Regular Heart Sounds Strong,Regular Heart Sounds Strong,Regular Bowels Date of Last Bowel Movement 12/16/23 Renal Bladder Pattern Continent Bladder Pattern Continent Bladder Pattern Continent Catheter Urinary Catheter Date of 12/15/23 Insertion [Urethral] Urinary Catheter Time of 07:45 Insertion [Urethral]
[2023-12-17] MEDS: ENOXAPARIN SODIUM 40 MG/0.4 ML SYRINGE SUBQ (23:04)
[2023-12-18] MEDS: IBUPROFEN 400 MG TABLET 800 MG PO ×2 (06:01→12:25)
[2023-12-18 08:20] VITALS: BP 120/60; PULSE 75
--- NOTE | 2023-12-18 08:42 | P.OBPN_ITS ---
OB - PN: Subj Subjective Patient comments: no complaints [place] status: doing well [place] feeding status: exclusively Narrative: pumping and feeding both babies syringe feeding Exam Constitutional Vital Signs, click to edit/add: Last Vital Signs Temp 97.7 F 12/17/23 23:33 Pulse 75 12/18/23 08:20 Resp 16 12/17/23 23:30 BP 120/60 12/18/23 08:20 Pulse Ox 100 12/15/23 16:17 O2 Del Method Room Air 12/17/23 23:30 Documenting provider has reviewed patient's vital signs: yes Common normals: no apparent distress, average body habitus, oriented x3, no limitations, healthy appearing, alert and well nourished General appearance: cooperative Orientation/consciousness: Yes awake, Yes oriented to person, Yes oriented to place and Yes oriented to time HENMT Common normals: normocephalic Eye Common normals: EOMs intact bilaterally Neck & C-Spine Common normals: full ROM Lymph Lymphatic: no lymphadenopathy noted Chest Common normals: inspection of chest normal Respiratory Common normals: normal respiratory effort, no retractions, no use of accessory muscles and clear to auscultation bilaterally Effort & inspection: able to speak in complete sentences Cardio Common normals: regular rate and regular rhythm Rate: regular rate Rhythm: regular rhythm GI Common normals: Normal to inspection, nondistended, normoactive bowel sounds present Auscultation: normoactive bowel sounds (patient has had bowel movements since surgery ) Back & Pelvis Common normals: no CVA tenderness Thoracic spine/upper back: normal to inspection Extremity Common normals: normal to inspection Neuro Common normals: oriented x3 Sensorium/orientation: awake, alert, oriented to person, oriented to place and oriented to time Psych Common normals: mental status grossly normal, thought process normal, cooperative, affect normal, speech normal, activity/motor behavior normal, denies hallucinations, denies homicidal ideation and denies suicidal ideation Attitude: calm Speech: normal speech Urinary Catheter Management Urinary Catheter Management Urethral: Cath placed during this visit: yes Urethral indwelling: No Insertion date: 12/15/23 Insertion time: 07:45 OB - PN: A/P Assessment and Plan (1) Twin gestation in second trimester: (2) Low TSH level: (3) Fatigue during : (4) Low hemoglobin: Plan - day: 3 Plan: routine postop care Time Spent with Patient Time: Total time spent is greater than 50% in coordination of care (as documented) at patient's floor/unit and/or counseling patient: Total time spent with greater than 50% in coordination of care (as documented) at patient's floor/unit and/or counseling patient: less than 15 minutes
[2023-12-18 09:20] VITALS: TEMP 36.6
--- NOTE | 2023-12-18 09:45 | PC.NURSE ---
Pt complaining of pain around umbilicus area. Pt states the area feels like its bulging out. aware of pt complaint; pt to follow-up with complaint at 1 week check-up with .
== END 2023-12-18 13:33 | disposition home or self-care (01) | DRG 785 ==
PROVIDERS: Admitting Provider Obstetrics & Gynecology; Visit Provider Obstetrics & Gynecology
PROC: 10D00Z1 Extraction of Products of Conception, Low, Open Approach (ICD-10-PCS; CPT 59514; principal; 2023-12-15 07:30)
DX: O30.033 Twin pregnancy, monochorionic/diamniotic, third trimester (principal); O32.1XX2 Maternal care for breech presentation, fetus 2; O34.211 Maternal care for low transverse scar from previous cesarean delivery; Z37.2 Twins, both liveborn; Z3A.37 37 weeks gestation of pregnancy; O90.81 Anemia of the puerperium; D64.9 Anemia, unspecified; R94.6 Abnormal results of thyroid function studies; Z87.891 Personal history of nicotine dependence
CPT/HCPCS: 36415; 36430; 51702; 64488; 80307; 81001; 85025; 86850; 86900; 86901; 86923; 87086; 88302; 88307; 94667; 94668; J0131; J0665; J0690; J1100; J1650; J1885; J2274; J2371; J2405; J2765; P9016

== ENCOUNTER 2023-12-19 08:15 | Outpatient (OUT) | payer BC, SELFPAY ==
[2023-12-19 16:03] VITALS: BP 114/78; PULSE 75; TEMP 36.4; O2SAT 96
== END 2023-12-19 15:15 | disposition home or self-care (01) ==
LOC: FBCO 08:16
PROVIDERS: Visit Provider Obstetrics & Gynecology
DX: Z39.1 Encounter for care and examination of lactating mother (principal)

== ENCOUNTER 2024-08-06 15:05 | Outpatient (REF) | payer BC, SELFPAY ==
--- OUTSIDE RECORDS SUMMARY | 2017-12-23 09:08 | XMS_ITS | Continuity of Care Document ---
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 Name Role Phone Cydney BAI, Perla Unavailable Unavailabl e Allergies, Adverse Reactions, Alerts Substance Reaction Status Criticality No Known Allergies Active No Inform ation Procedures Procedure Date Detox Discharge DRUG TEST PRSMV DIR OPT OBS URINE TEST Alcohol and/or drug services- Acute Deto x Advance Directives Directive Yes / No Effective Date File Name No Information Encounters Encounter Description Practice Location Reason(s) For Visit Diagnoses Date Provider Providers Copied on Encounter [facility], [address] [place] [address], [id number] , tel:[phone] [facility] Opioid abuse (chief complaint) Opioid dependence with withdrawal 8 Cydney Duncan. [address] [place] [address], [id number] , [place]. tel: [phone] [facility], [address] [place] [address], [id number] , [place] tel: [phone] [facility] Opioid dependence with withdrawalEncounter for test, result positive 8 Visci DO Dustin. [address], [place], [id number] , [place]. tel:[phone] [facility], [address] [place] [address], [id number] , [place] tel: [phone] [facility] Opioid dependence with withdrawalEncounter for test, result positive 8 Visci DO Chan. [address] [place] [address], [id number] , . tel:[phone] Family History Family Member Type Diagnosis Age At Onset Father Problem (finding) hypertension Father Problem (finding) Diabetes mellitus Mother Problem (finding) leg surgeries Payers Payer name Insurance type Covered green party ID Florina morales(s) Medicaid [facility] [id number] [facility] [id number] Social History Type Description Quantity Date Captured Comments Alcohol Use Details Unknown Caffeine Use Details Unknown Tobacco Use Status Smoking Status No Information Sex Female Sexual Orientation Straight or heterosexual Dec Chief Complaint And Reason For Visit From encounter dated '12/23/2017 13:08'. Opioid abuse (chief complaint). Description: 27 y/o female presented to the detox center on 12/22/17. She reports she has been in a detox center before. She has been clean at one point for 1 year. Physical exam being performed. Medical hx- anxiety, depressionSurgical hx- c-sectionAllergies- NKAMedications- noneSmoker- 1 ppd x 10 yearsAlcohol- deniesIllicit drugs- fentanyl, 112 grams/daily, smoke,for 1 year. Used other drugs before starting fentanyl. Plans when leaving detox center- unknown. Reason For Referral Reason For Referral No Information History Of Present Illness Encounter Date Complaint History Of Prese nt Illness Opioid abuse 27 y/o female pr esented to the detox center on 12/22/17. She reports she has been in a detox center before. She has been clean at one point for 1 year. Physical exam being performed. Medical hx- anxiety, depressionSurgical hx- c-sectionAllergies- NKAMedications- noneSmoker- 1 ppd x 10 yearsAlcohol- deniesIllicit drugs- fentanyl, 112 grams/daily, smoke, for 1 year. Used other drugs before starting fentanyl. Plans when leaving detox center- unknown. Functional Status Date Functional Assessmen t No Information Instructions Date Instruction Additional Infor mation No Information Assessments Type Assessment Date assessment Opioid dependence with withdrawa l impression Initiate acute opioid abuse with drawal protocol. Mental Status Date Cognitive Assessment Orientation - Deeth ed to time, place, person, situation. Patient Care Teams Name Effective Dates (start - stop) Status Members No Information
--- OUTSIDE RECORDS SUMMARY | 2024-07-29 18:40 | XMS_ITS | Encounter Summary ---
Author Organization [facility] Address [address] [place] [address] Care Team Providers Care Lime Kiln Tender Name Role Phone Altman, Amy Vijaya STEWART Primary Care Provider [phone] Reason for Visit * Reason Comments Abdominal Pain Sulfur burps, upper mid- right sided abdominal pain started yesterday. 6 episodes of diarrhea. 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 Encounter Details Date Type Department Care Team (Late st Contact Info) Description 07/29/2024 6:40 PM EDT - 07/29/2024 8:48 PM EDT Emergency [facility] Emergency Department [address] [id number] Nicholas Roger MD [address] [place] [address] Abdominal pain, epigastric (Primary Dx) Discharge Disposition: Home or Self Care Social History Tobacco Use Types Packs/Day Years Used Date Smoking Tobacco: Former Cigarettes 0.5 13 Smokeless Tobacco: Never Alcohol Use Standard Drinks/Week Comments Not Currently 0 (1 standard drink = 0.6 oz pur e alcohol) AUDIT-C Answer Date Recorded Q1: How often do you have a drink containing alcohol? Never 07/29/2024 Q2: How many drinks containi ng alcohol do you have on a typical day when you are drinking? Patient does not drink Q3: How often do you have si x or more drinks on one occasion? Never 07/29/2024 Interpersonal Safety Domain Source: IP Abuse Scr eening Answer Date Recorded Physical abuse Denies 12/23/2023 Verbal abuse Denies 12/23/2023 Emotional abuse Denies 12/23/2023 Financial abuse Denies 12/23/2023 Sexual abuse Denies 12/23/2023 Comments Unknown Sex and Gender Information Value Date Recorded Sex Assigned at Not on file Legal Sex Female 9:45 PM EST Gender Identity Not on file Sexual Orientation Not on file documented as of this encounter Last Filed Vital Signs Vital Sign Reading Time Taken Comments Blood Pressure 134/81 07/29/2024 6:48 PM EDT Pulse 91 07/29/2024 6:48 PM EDT Temperature 36.8 C (98.3 F) 07/29/2024 6:48 PM EDT Respiratory Rate 18 07/29/2024 6:48 PM EDT Oxygen Saturation 96% 07/29/2024 6:48 PM EDT Inhaled Oxygen Concentration - - Weight 106.1 kg (234 lb) 07/29/2024 6:48 PM EDT Height 160 cm (5' 3 ) 07/29/2024 6:48 PM EDT Body Mass Index 41.45 07/29/2024 6:48 PM EDT documented in this encounter Functional Status documented as of this encounter Discharge Instructions * Attachments The following attachments cannot be sent through Care Everywhere. * Dyspepsia (German) documented in this encounter Medications at Time of Discharge Semaglutide-Weig ht Management (WEGOVY) 1.7 MG/0.75ML SOAJ SC injection Inject 1.25 mg into the skin every 7 days ibuprofen (ADVIL;MOTRIN) 600 MG tablet Take 1 tablet by mouth every 6 hours as needed for Pain SUMAtriptan (IMITREX) 25 MG tablet Take 1 tablet by mouth once as needed for Migraine pantoprazole (PROTONIX) 40 MG tablet Take 1 tablet by mouth every morning (before breakfast) 30 tablet 07/29/2024 dicyclomine (BENTYL) 20 MG tablet Take 1 tablet by mouth 3 times daily as needed (For abdominal cramps) 30 tablet 07/29/2024 ondansetron (ZOFRAN) 4 MG tablet Take 1 tablet by mouth every 8 hours as needed for Nausea or Vomiting 12 tablet 07/29/2024 documented as of this encounter Plan of Treatment Not on file documented as of this encounter Procedures Procedure Name Priority Date/Time Associated Diagnosis Comments LIPASE STAT 07/29/2024 7:43 PM EDT COMPREHENSIVE METABOLIC PANEL STAT 07/29/2024 7:43 PM EDT CBC WITH AUTO DIFFERENTIAL STAT 07/29/2024 7:15 PM EDT URINALYSIS Stat Sunquest Label print 07/29/2024 7:15 PM EDT documented in this encounter Results * Lipase (07/29/2024 7:43 PM EDT) Lipase 29 13 - 60 U/L 07/29/2024 7:43 PM EDT [facility] [place] [facility] Blood BLOOD SPECIMEN / Unknown 07/29/2024 7:43 PM EDT 07/29/2024 7:51 PM EDT Nicholas Roger MD CHEMISTRY ORDERABLES Final R esult [facility] [place] [facility] [address] [place] [address], [facility] [phone] * Comprehensive Metabolic Panel (07/29/2024 7:43 PM EDT) Sodium 139 135 - 144 mmol/L 07/29/2024 7:43 PM EDT [facility] [place] [facility] Potassium 4.1 3.7 - 5.3 mmol/L 07/29/2024 7:43 PM EDT [facility] Chloride 101 98 - 107 mmol/L 07/29/2024 7:43 PM EDT [facility] CO2 26 20 - 31 mmol/L 07/29/2024 7:43 PM EDT [facility] Anion Gap 12 9 - 17 mmol/L 07/29/2024 7:43 PM [facility] Glucose 91 70 - 99 mg/dL 07/29/2024 7:43 PM [facility] BUN 15 6 - 20 mg/dL 07/29/2024 7:43 PM [facility] Creatinine 0.7 0.5 - 0.9 mg/dL 07/29/2024 7:43 PM [facility] Est, Glom Filt Rate >90 >60 mL/min/1.7 3m2 07/29/2024 7:43 PM [facility] Comment: These results are not intended for [...] following therapy that affects renal tubular secretion. Calcium 10.4 8.6 - 10.4 mg/dL 07/29/2024 7:[address] [facility] [place] [facility] Total Protein 7.8 6.4 - 8.3 g/dL 07/29/2024 7:43 PM [facility] Albumin 4.6 3.5 - 5.2 g/dL 07/29/2024 7:43 PM [facility] Albumin/Globulin Ratio 1.4 1.0 - 2.5 07/29/2024 7:43 PM [facility] Total Bilirubin 0.3 0.3 - 1.2 mg/dL 07/29/2024 7:43 PM [facility] Alkaline Phosphatase 65 35 - 104 U/L 07/29/2024 7:43 PM [facility] ALT 15 5 - 33 U/L 07/29/2024 7:43 PM [facility] AST 18 <32 U/L 07/29/2024 7:43 PM [facility] Blood BLOOD SPECIMEN / Unknown 07/29/2024 7:43 PM EDT 07/29/2024 7:51 PM EDT Nicholas Roger MD CHEMISTRY ORDERABLES Final R esult [facility] [place] [address], [facility] [phone] * (ABNORMAL) Urinalysis (07/29/2024 7:15 PM EDT) Color, UA Yellow Yellow 07/29/2024 7:15 PM EDT [facility] Turbidity UA Clear Clear 07/29/2024 7:15 PM EDT [facility] Glucose, Ur NEGATIVE NEGATIVE mg/dL 07/29/2024 7:15 PM EDT [facility] Bilirubin, Urine NEGATIVE NEGATIVE 07/29/2024 7:15 PM EDT [facility] Ketones, Urine NEGATIVE NEGATIVE mg/dL 07/29/2024 7:15 PM EDT [facility] Specific [place], UA 1.020 1.005 - 1.030 07/29/2024 7:15 PM EDT [facility] Urine Hgb NEGATIVE NEGATIVE 07/29/2024 7:15 PM EDT [facility] pH, Urine 6.0 5.0 - 8.0 07/29/2024 7:15 PM EDT [facility] Protein, UA TRACE(A) NEGATIVE mg/dL 07/29/2024 7:15 PM EDT [facility] Urobilinogen, Urine Normal 0.0 - 1.0 EU/dL 07/29/2024 7:15 PM EDT [facility] Nitrite, Urine NEGATIVE NEGATIVE 07/29/2024 7:15 PM EDT [facility] Leukocyte Esterase, Urine NEGATIVE NEGATIVE 07/29/2024 7:15 PM EDT [facility] Comment 07/29/2024 7:15 PM EDT [facility] Urine URINE SPECIMEN / Unknown 07/29/2024 7:15 PM EDT 07/29/2024 7:27 PM EDT Nicholas Roger MD URINE ORDERABLES Final Resul t [facility] [address] [place] [address], [facility] [phone] * (ABNORMAL) CBC with Auto Differential (07/29/2024 7:15 PM EDT) WBC 9.0 3.5 - 11.0 k/uL 07/29/2024 7:15 PM EDT [facility] RBC 5.10 4.00 - 5.20 m/uL 07/29/2024 7:15 PM EDT [facility] Hemoglobin 12.7 12.0 - 16.0 g/dL 07/29/2024 7:15 PM EDT [facility] Hematocrit 39.0 36.0 - 46.0 % 07/29/2024 7:15 PM EDT [facility] MCV 76.5(L) 80.0 - 100.0 fL 07/29/2024 7:15 PM EDT [facility] MCH 24.9(L) 26.0 - 34.0 pg 07/29/2024 7:15 PM EDT [facility] MCHC 32.6 31.0 - 37.0 g/dL 07/29/2024 7:15 PM EDT [facility] RDW 14.3 12.1 - 15.2 % 07/29/2024 7:15 PM EDT [facility] Platelets 326 140 - 450 k/uL 07/29/2024 7:15 PM EDT [facility] MPV 10.2 6.0 - 12.0 fL 07/29/2024 7:15 PM EDT [facility] Neutrophils % 71 47 - 75 % 07/29/2024 7:15 PM EDT [facility] Lymphocytes % 20 15 - 40 % 07/29/2024 7:15 PM EDT [facility] Monocytes % 7 4 - 8 % 07/29/2024 7:15 PM EDT [facility] Eosinophils % 2 0 - 5 % 07/29/2024 7:15 PM EDT [facility] Basophils % 0 0 - 2 % 07/29/2024 7:15 PM EDT [facility] Immature Granulocytes % 0 0 - 5 % 07/29/2024 7:15 PM EDT [facility] Neutrophils Absolute 6.40 2.5 - 7.0 k/uL 07/29/2024 7:15 PM EDT [facility] Lymphocytes Absolute 1.75 1.00 - 4.80 k/uL 07/29/2024 7:15 PM EDT [facility] Monocytes Absolute 0.62 0.00 - 1.00 k/uL 07/29/2024 7:15 PM EDT [facility] Eosinophils Absolute 0.16 0.00 - 0.40 k/uL 07/29/2024 7:15 PM EDT [facility] Basophils Absolute 0.01 0.00 - 0.20 k/uL 07/29/2024 7:15 PM EDT [facility] Immature Granulocytes Absolute 0.02 0.00 - 0.30 k/uL 07/29/2024 7:15 PM EDT [facility] Blood BLOOD SPECIMEN / Unknown 07/29/2024 7:15 PM EDT 07/29/2024 7:51 PM EDT us Nicholas Roger MD HEMATOLOGY ORDERABLES Final Result [facility] [address] [place] [id number], [facility] [phone] documented in this encounter Visit Diagnoses Diagnosis Abdominal pain, epigastric- Primary documented in this encounter Administered Medications Inactive Administered Medications - up to 3 most recent administrations Medication Order MAR Action Action Date Dose Rate Site aluminum & magnesium hydroxide-simethicone (MAALOX PLUS) 30 mL, lidocaine viscous hcl (XYLOCAINE) 5 mL (GI COCKTAIL) Oral, ONCE, On 07/29/24 at 2030, For 1 dose, Take 5 mL from lidocaine viscous 2% cup and mix with 30 mL of maalox and then administer. Given 07/29/2024 8:22 PM EDT ondansetron (ZOFRAN) injection 4 mg 4 mg, IntraVENous, ONCE, 1 dose, On 07/29/24 at 1914 Given 07/29/2024 7:44 PM EDT 4 mg pantoprazole (PROTONIX) tablet 40 mg 40 mg, Oral, ONCE, 1 dose, On 07/29/24 at 2029, Do not crush or break. Given 07/29/2024 8:23 PM EDT 40 mg documented in this encounter Active and Recently Administered Medications Times are shown in EDT. Scheduled Medication Order 07/27/2024 07/28/2024 07/29/2024 aluminum & magnesium hydroxide-simethicone (MAALOX PLUS) 30 mL, lidocaine viscous hcl (XYLOCAINE) 5 mL (GI COCKTAIL) (COMPLETED) Oral, ONCE, On 07/29/24 at 2029, For 1 dose, Take 5 mL from lidocaine viscous 2% cup and mix with 30 mL of maalox and then administer. 2021 (Given - Provid er: Lawrence Cortes RN) ondansetron (ZOFRAN) injection 4 mg (COMPLETED) 4 mg, IntraVENous, ONCE, 1 dose, On 07/29/24 at 1914 1943 (Given - Provid er: Jaycee De Los Santos RN) pantoprazole (PROTONIX) tablet 40 mg (COMPLETED) 40 mg, Oral, ONCE, 1 dose, On 07/29/24 at 2029, Do not crush or break. 2022 (Given - Provid er: Lawrence Cortes RN) documented in this encounter Care Teams L[employer] Tender Relationship Specialty Start Date End Date Linda Altamn DO [address] [place] [id number] PCP - General Family Medicine 09/04/22 documented as of this encounter
--- OUTSIDE RECORDS SUMMARY | 2024-07-31 05:51 | XMS_ITS | Encounter Summary ---
Author Organization [facility] Address [address] [place] [address] Care Team Providers Care Apprentice Plant Attendant Name Role Phone Linda Altman Primary Care Provider [phone] Reason for Visit * Reason Comments Abdominal Pain Pt C/O abdominal akbar n x 4 days. Pt states that she was seen in the ER 2 days ago and it has been pain has been getting worse since being seen. Encounter Details Date Type Department Care Team (Late st Contact Info) Description 07/31/2024 5:51 AM EDT - 07/31/2024 9:07 AM EDT Emergency [facility] Emergency Department [address] [place] [address] Anuj Quinn MD [address] [address] Abdominal pain, epigastric (Primary Dx) Discharge Disposition: Home or Self Care Social History Tobacco Use Types Packs/Day Years Used Date Smoking Tobacco: Former Cigarettes 0.5 13 Smokeless Tobacco: Never Alcohol Use Standard Drinks/Week Comments Not Currently 0 (1 standard drink = 0.6 oz pur e alcohol) AUDIT-C Answer Date Recorded Q1: How often do you have a drink containing alcohol? Never 07/31/2024 Q2: How many drinks containi ng alcohol do you have on a typical day when you are drinking? Patient does not drink Q3: How often do you have si x or more drinks on one occasion? Never 07/31/2024 Interpersonal Safety Domain Source: IP Abuse Scr eening Answer Date Recorded Physical abuse Denies 07/31/2024 Verbal abuse Denies 07/31/2024 Emotional abuse Denies 07/31/2024 Financial abuse Denies 07/31/2024 Sexual abuse Denies 07/31/2024 Comments No Sex and Gender Information Value Date Recorded Sex Assigned at Not on file Legal Sex Female 9:45 PM EST Gender Identity Not on file Sexual Orientation Not on file documented as of this encounter Last Filed Vital Signs Vital Sign Reading Time Taken Comments Blood Pressure 120/72 07/31/2024 8:08 AM EDT Pulse 88 07/31/2024 8:08 AM EDT Temperature 36.4 C (97.6 F) 07/31/2024 5:55 AM EDT Respiratory Rate 18 07/31/2024 8:08 AM EDT Oxygen Saturation 98% 07/31/2024 8:08 AM EDT Inhaled Oxygen Concentration - - Weight 105.7 kg (233 lb 1.6 oz) 07/31/2024 5:55 AM EDT Height 160 cm (5' 3 ) 07/31/2024 5:55 AM EDT Body Mass Index 41.29 07/31/2024 5:55 AM EDT documented in this encounter Functional Status documented as of this encounter Discharge Instructions * Attachments The following attachments cannot be sent through Care Everywhere. * Dyspepsia (Chinese) documented in this encounter Medications at Time [...] Procedure Name Priority Date/Time Associated Diagnosis Comments CT ABDOMEN PELVIS W IV CONTRAST STAT 07/31/2024 7:23 AM EDT CBC WITH AUTO DIFFERENTIAL STAT 07/31/2024 6:25 AM EDT LIPASE STAT 07/31/2024 6:25 AM EDT HEPATIC FUNCTION PANEL STAT 07/31/2024 6:25 AM EDT BASIC METABOLIC PANEL STAT 07/31/2024 6:25 AM EDT URINALYSIS WITH REFLEX TO CULTURE Stat [employer] Label print 07/31/2024 5:57 AM EDT MICROSCOPIC URINALYSIS Add-On 07/31/2024 5:57 AM EDT documented in this encounter Results * CT ABDOMEN PELVIS W IV CONTRAST Additional Contrast? None (07/31/2024 7:23 AM EDT) Anatomical Region Laterality Modality Abdomen, Pelvis, Hip Computed To mography 07/31/2024 7:23 AM EDT Impressions 07/31/2024 8:09 AM EDT 1. No obvious explanation for the patient's symptoms. 2. Normal appendix. 3. No nephro or ureterolithiasis. 4. Hypodense nodules in the lateral segment of the left hepatic lobe, anterior segment of the right hepatic lobe, indeterminate. The differential considerations include hemangioma, focal nodular hyperplasia, hepatic adenoma. If patient has known primary metastatic disease would be in the differential consideration. If clinically desired this could be further evaluated with MRI preferably with contrast on a nonemergent basis. Narrative 07/31/2024 8:09 AM EDT CLINICAL HISTORY: Abdominal pain, epigastric, umbilical, left upper quadrant x 4 days. EXAMINATION: Enhanced CT scan of the abdomen and pelvis: 07/31/2024. COMPARISON: Enhanced CT scan of the abdomen and pelvis: 06/13/2019. TECHNIQUE: 3.75 mm axial images from lung bases through ischial tuberosities following administration of intravenous contrast were obtained. No oral contrast was utilized. Sagittal, coronal reconstructions were performed. CT dose reduction technique was used, including Automated Exposure Control. FINDINGS: Lung bases demonstrate no focal abnormalities. The heart size seems normal. CT ABDOMEN: Liver, spleen are normal except for a focal area of hypodensity in the lateral segment of left hepatic lobe, measuring approximately 1.5 cm in transverse dimension with average Hounsfield units of approximately 53. There are no other lesions in the liver, except for a tiny lesion in the anterior segment of right hepatic lobe, image 32 sequence 2 measuring 7 mm. The gallbladder, spleen, pancreas, adrenal glands, kidneys appear normal. There is no retroperitoneal or mesenteric adenopathy. The aorta has normal caliber. No abnormally dilated bowel loops are seen. Appendix is normal. CT PELVIS: The bladder, uterus, ovaries appear normal. There is no ureterolithiasis. There is no pelvic adenopathy. The bladder is incompletely distended. There are no focal fluid collections. The visualized osseous structures demonstrate no gross abnormalities. Procedure Note Justin Ceja MD - 07/31/2024 CLINICAL HISTORY: Abdominal pain, epigastric, umbilical, left upperquadrant x 4 days. EXAMINATION: Enhanced CT scan of the abdomen and pelvis: 07/31/2024. COMPARISON: Enhanced CT scan of the abdomen and pelvis: 06/13/2019. TECHNIQUE: 3.75 mm axial images from lung bases through ischialtuberosities following administration of intravenous contrast were obtained. No oral contrast was utilized. Sagittal, coronal reconstructions were performed.CT dose reduction technique was used, including Automated Exposure Control. FINDINGS: Lung bases demonstrate no focal abnormalities. The heart sizeseems normal. CT ABDOMEN: Liver, spleen are normal except for a focal area ofhypodensity in the lateral segment of left hepatic lobe, measuring approximately 1.5 cmin transverse dimension with average Hounsfield units of approximately 53.There are no other lesions in the liver, except for a tiny lesion in theanterior segment of right hepatic lobe, image 32 sequence 2 measuring 7 mm. The gallbladder, spleen, pancreas, adrenal glands, kidneys appear normal.There is no retroperitoneal or mesenteric adenopathy. The aorta has normal caliber.No abnormally dilated bowel loops are seen. Appendix is normal. CT PELVIS: The bladder, uterus, ovaries appear normal. There is no ureterolithiasis. There is no pelvic adenopathy. The bladder isincompletely distended. There are no focal fluid collections. The visualized osseous structures demonstrate no gross abnormalities. IMPRESSION: 1. No obvious explanation for the patient's symptoms. 2. Normal appendix. 3. No nephro or ureterolithiasis. 4. Hypodense nodules in the lateral segment of the left hepatic lobe,anterior segment of the right hepatic lobe, indeterminate. The differential considerations include hemangioma, focal nodular hyperplasia, hepaticadenoma. If patient has known primary metastatic disease would be in thedifferential consideration. If clinically desired this could be further evaluated withMRI preferably with contrast on a nonemergent basis. Anuj Quinn MD IMG CT ORDERABLES Final R esult * Lipase (07/31/2024 6:25 AM EDT) Lipase 26 13 - 60 U/L 07/31/2024 6:25 AM EDT [facility] Blood BLOOD SPECIMEN / Unknown 07/31/2024 6:25 AM EDT 07/31/2024 6:26 AM EDT Anuj Quinn MD CHEMISTRY ORDERABLES Sharla l Result [facility] [address] [facility] [address] [phone] * Hepatic Function Panel (07/31/2024 6:25 AM EDT) Albumin 4.5 3.5 - 5.2 g/dL 07/31/2024 6:25 AM EDT [facility] Alkaline Phosphatase 70 35 - 104 U/L 07/31/2024 6:25 AM EDT [facility] ALT 15 5 - 33 U/L 07/31/2024 6:25 AM EDT [facility] AST 19 <32 U/L 07/31/2024 6:25 AM EDT [facility] Total Bilirubin 0.3 0.3 - 1.2 mg/dL 07/31/2024 6:25 AM EDT [facility] Bilirubin, Direct 0.1 <0.3 mg/dL 07/31/2024 6:25 AM EDT [facility] Bilirubin, Indirect 0.2 0.0 - 1.0 mg/dL 07/31/2024 6:25 AM EDT [facility] Total Protein 7.8 6.4 - 8.3 g/dL 07/31/2024 6:25 AM EDT [facility] Globulin 3.3 1.5 - 3.8 g/dL 07/31/2024 6:25 AM EDT [facility] Albumin/Globulin Ratio 1.4 1.0 - 2.5 07/31/2024 6:25 AM EDT [facility] Blood BLOOD SPECIMEN / Unknown 07/31/2024 6:25 AM EDT 07/31/2024 6:26 AM EDT us Anuj Quinn MD CHEMISTRY ORDERABLES Sharla l Result [facility] [address] [place] [address], [facility] [phone] * (ABNORMAL) CBC with Auto Differential (07/31/2024 6:25 AM EDT) WBC 7.7 3.5 - 11.0 k/uL 07/31/2024 6:25 AM EDT [facility] RBC 4.91 4.00 - 5.20 m/uL 07/31/2024 6:25 AM EDT [facility] Hemoglobin 12.1 12.0 - 16.0 g/dL 07/31/2024 6:25 AM EDT [facility] Hematocrit 37.7 36.0 - 46.0 % 07/31/2024 6:25 AM EDT [facility] MCV 76.8(L) 80.0 - 100.0 fL 07/31/2024 6:25 AM EDT [facility] MCH 24.6(L) 26.0 - 34.0 pg 07/31/2024 6:25 AM [email or web address] MCHC 32.1 31.0 - 37.0 g/dL 07/31/2024 6:25 AM [facility] RDW 14.2 12.1 - 15.2 % 07/31/2024 6:25 AM [facility] Platelets 297 140 - 450 k/uL 07/31/2024 6:25 AM [facility] [email or web address] [email or web address] [facility] MPV 10.4 6.0 - 12.0 fL 07/31/2024 6:25 AM [facility] [email or web address] [email or web address] [employer] [facility] Neutrophils % 72 47 - 75 % 07/31/2024 6:25 AM [facility] [email or web address] [email or web address] [employer] [facility] Lymphocytes % 19 15 - 40 % 07/31/2024 6:25 AM [facility] [email or web address] [email or web address] Monocytes % 7 4 - 8 % 07/31/2024 6:25 AM [facility] [email or web address] [facility] Eosinophils % 2 0 - 5 % 07/31/2024 6:25 AM [facility] [email or web address] [email or web address] Basophils % 0 0 - 2 % 07/31/2024 6:25 AM [email or web address] [email or web address] Immature Granulocytes % 0 0 - 5 % 07/31/2024 6:25 AM [facility] Neutrophils Absolute 5.47 2.5 - 7.0 k/uL 07/31/2024 6:25 AM [employer] [facility] Lymphocytes Absolute 1.48 1.00 - 4.80 k/uL 07/31/2024 6:25 AM [facility] [email or web address] [facility] Monocytes Absolute 0.55 0.00 - 1.00 k/uL 07/31/2024 6:25 AM [facility] [email or web address] [facility] Eosinophils Absolute 0.13 0.00 - 0.40 k/uL 07/31/2024 6:25 AM [facility] Basophils Absolute 0.02 0.00 - 0.20 k/uL 07/31/2024 6:25 AM [facility] [email or web address] [email or web address] Immature Granulocytes Absolute 0.01 0.00 - 0.30 k/uL 07/31/2024 6:25 AM [employer] [email or web address] [email or web address] Blood BLOOD SPECIMEN / Unknown 07/31/2024 6:25 AM EDT 07/31/2024 6:26 AM EDT us Anuj Quinn MD HEMATOLOGY ORDERABLES Fin al Result [facility] [address] [place] [address], [facility] [phone] * BMP (07/31/2024 6:25 AM EDT) Sodium 139 135 - 144 mmol/L 07/31/2024 6:25 AM EDT [facility] Potassium 4.0 3.7 - 5.3 mmol/L 07/31/2024 6:25 AM EDT [facility] Chloride 104 98 - 107 mmol/L 07/31/2024 6:25 AM EDT [facility] CO2 22 20 - 31 mmol/L 07/31/2024 6:25 AM EDT [facility] Anion Gap 13 9 - 17 mmol/L 07/31/2024 6:25 AM EDT [facility] Glucose 88 70 - 99 mg/dL 07/31/2024 6:25 AM EDT [facility] BUN 17 6 - 20 mg/dL 07/31/2024 6:25 AM EDT [facility] Creatinine 0.6 0.5 - 0.9 mg/dL 07/31/2024 6:25 AM EDT [facility] Est, Glom Filt Rate >90 >60 mL/min/1.7 3m2 07/31/2024 6:25 AM EDT [facility] Comment: These results are not intended [...] therapy that affects renal tubular secretion. Calcium 9.0 8.6 - 10.4 mg/dL 07/31/2024 6:25 AM EDT [facility] Blood BLOOD SPECIMEN / Unknown 07/31/2024 6:25 AM EDT 07/31/2024 6:26 AM EDT Anuj Quinn MD CHEMISTRY ORDERABLES Sharla l Result Performing Organization Address [facility]/ZIP Co de Phone Number [facility] [address] [phone] * (ABNORMAL) Microscopic Urinalysis (07/31/2024 5:57 AM EDT) WBC, UA 2 TO 5 0 /HPF 07/31/2024 5:57 AM EDT [facility] RBC, UA 2 TO 5 0 - 2 /HPF 07/31/2024 5:57 AM EDT [facility] Epithelial Cells, UA 10 TO 20 /HPF 07/31/2024 5:57 AM EDT [facility] Bacteria, UA 2+(A) None 07/31/2024 5:57 AM EDT [facility] - 07/31/2024 5:57 AM EDT [facility] 07/31/2024 5:57 AM EDT 07/31/2024 5:58 AM EDT us Anuj Quinn MD URINE ORDERABLES Final Re sult Performing Organization Address City/[facility]/ZIP Co de Phone Number [facility] [address] [phone] * (ABNORMAL) Urinalysis with Reflex to Culture (07/31/2024 5:57 AM EDT) Color, UA Yellow Yellow 07/31/2024 5:57 AM EDT [facility] Turbidity UA Clear Clear 07/31/2024 5:57 AM EDT [facility] Glucose, Ur NEGATIVE NEGATIVE mg/dL 07/31/2024 5:57 AM EDT [facility] Bilirubin, Urine NEGATIVE NEGATIVE 07/31/2024 5:57 AM EDT [facility] Ketones, Urine NEGATIVE NEGATIVE mg/dL 07/31/2024 5:57 AM EDT [facility] Specific Brimson, UA 1.015 1.005 - 1.030 07/31/2024 5:57 AM EDT [facility] Urine Hgb NEGATIVE NEGATIVE 07/31/2024 5:57 AM EDT [facility] pH, Urine 6.5 5.0 - 8.0 07/31/2024 5:57 AM EDT [facility] Protein, UA 1+(A) NEGATIVE mg/dL 07/31/2024 5:57 AM EDT [facility] Urobilinogen, Urine Normal 0.0 - 1.0 EU/dL 07/31/2024 5:57 AM EDT [facility] Nitrite, Urine NEGATIVE NEGATIVE 07/31/2024 5:57 AM EDT [facility] Leukocyte Esterase, Urine NEGATIVE NEGATIVE 07/31/2024 5:57 AM EDT [facility] Comment 07/31/2024 5:57 AM EDT [facility] Urine 07/31/2024 5:57 AM EDT 07/31/2024 5:58 AM EDT us Anuj uQinn MD URINE ORDERABLES Final Re sult [facility] [address] [place] [address], [facility] [phone] documented in this encounter Visit Diagnoses Diagnosis Abdominal pain, epigastric- Primary documented in this encounter Administered Medications Inactive Administered Medications - up to 3 most recent administrations Medication Order MAR Action Action Date Dose Rate Site aluminum & magnesium hydroxide-simethicone (MAALOX PLUS) 30 mL, lidocaine viscous hcl (XYLOCAINE) 5 mL (GI COCKTAIL) Oral, ONCE, On Tue07/31/24 at 0900, For 1 dose, Take 5 mL from lidocaine viscous 2% cup and mix with 30 mL of maalox and then administer. Given 07/31/2024 8:59 AM EDT iopamidol (ISOVUE-370) 76 % injection 75 mL 75 mL, IntraVENous, IMG ONCE PRN, 1 dose, Starting on Tue07/31/24 at 0723, Until Tue07/31/24 at 0725, Other Given 07/31/2024 7:25 AM EDT 75 mLs pantoprazole (PROTONIX) 40 mg in sodium chloride (PF) 0.9 % 10 mL injection 40 mg, IntraVENous, ONCE, On Tue07/31/24 at 0645, For 1 dose, Reconstitute with 10 mL 0.9 % sodium chloride and administer over at least 2 minutes. Given 07/31/2024 6:51 AM EDT 40 mg documented in this encounter Active and Recently Administered Medications Times are shown in EDT. Scheduled Medication Order 07/29/2024 07/30/2024 07/31/2024 aluminum & magnesium hydroxide-simethicone (MAALOX PLUS) 30 mL, lidocaine viscous hcl (XYLOCAINE) 5 mL (GI COCKTAIL) (COMPLETED) Oral, ONCE, On Tue07/31/24 at 0900, For 1 dose, Take 5 mL from lidocaine viscous 2% cup and mix with 30 mL of maalox and then administer. 0859 (Given - Provid er: Charissa Kebede RN) pantoprazole (PROTONIX) 40 mg in sodium chloride (PF) 0.9 % 10 mL injection (COMPLETED) 40 mg, IntraVENous, ONCE, On Tue07/31/24 at 0645, For 1 dose, Reconstitute with 10 mL 0.9 % sodium chloride and administer over at least 2 minutes. 0651 (Given - Provid er: Alesha Felix RN) PRN Medication Order 07/29/2024 07/30/2024 07/31/2024 iopamidol (ISOVUE-370) 76 % injection 75 mL (COMPLETED) 75 mL, IntraVENous, IMG ONCE PRN, 1 dose, Starting on Tue07/31/24 at 0723, Until Tue07/31/24 at 0725, Other 07 (Given - Provid er: Noemi Napier) documented in this encounter Care Teams Apprentice Plant Attendant Relationship Specialty Start Date End Date Linda Altman DO [address] [place] [address] PCP - General Family Medicine 09/04/22 documented as of this encounter
--- OUTSIDE RECORDS SUMMARY | 2024-08-06 09:00 | XMS_ITS | Encounter Summary ---
Author Organization [facility] Address [address] [place] [address] Care Team Providers Care Geothermal Technician Name Role Phone Linda Altman DO Primary Care Provider Reason for Visit * Reason Comments Well Women Visit Encounter Details Date Type Department Care Team ([facility] st Contact Info) Description 08/06/2024 9:00 AM EDT Office Visit [facility] [address] [place] [address] Mark Dumont DO [address] [place], [facility]11 Well woman exam with routine gynecological exam; Vaginal discharge; Yeast infection Social History Tobacco Use Types Packs/Day Years Used Date Smoking Tobacco: Never Assessed Comments Unknown Sex and Gender Information Value Date Recorded Sex Assigned at Not on file Legal Sex Female 11:10 PM EDT Gender Identity Not on file Sexual Orientation Not on file documented as of this encounter Last Filed Vital Signs Vital Sign Reading Time Taken Comments Blood Pressure 120/70 08/06/2024 9:30 AM EDT Pulse - - Temperature - - Respiratory Rate - - Oxygen Saturation - - Inhaled Oxygen Concentration - - Weight 105 kg (232 lb 4 oz) 08/06/2024 9:30 AM E DT Height - - Body Mass Index 39.87 05/20/2023 10:52 AM EDT documented in this encounter Progress Notes * Elvira Freedman LPN - 08/06/2024 9:00 AM EDT Reason for Appointment: Patient ID: Thuy Cortez is a 34 y.o. female who presents for Well Women Visit Patient presents today for Annual Exam. MEDICATIONS Current Outpatient Medications Medication Instructions ibuprofen 800 mg, Every 8 hours MV-Min-Fe Fum-FA-DHA ( 1 PO) 1 each, Daily ALLERGIES No Known Allergies PROBLEMS Active Ambulatory Problems Diagnosis Date Noted Twin gestation in first trimester 06/21/2023 Nausea 06/21/2023 11 weeks gestation of 06/21/2023 Post-operative state 01/30/2024 state 01/30/2024 Resolved Ambulatory Problems Diagnosis Date Noted No [...] BIOPSY W/ LOOP ELECTRODE EXCISION 02/03/2018 SECTION, LOW TRANSVERSE 11/03/2010 SECTION, LOW TRANSVERSE 01/26/2012 SECTION, LOW TRANSVERSE 05/03/2013 SECTION, LOW TRANSVERSE 08/28/2020 SECTION, LOW TRANSVERSE 12/15/2023 TUBAL LIGATION 12/15/2023 bilateral salpingectomy REVIEW OF SYSTEMS Review of Systems: Review of Systems Constitutional: Negative. HENT: Negative. Eyes: Negative. Respiratory: Negative. Cardiovascular: Negative. Gastrointestinal: Negative. Genitourinary: Positive for vaginal discharge. Musculoskeletal: Negative. Skin: Negative. Neurological: Negative. All other systems reviewed and are negative. Hematological: Negative. Endocrine: Negative. Allergic/Immunologic: Negative. OBJECTIVE Objective: Physical Exam Constitutional: Appearance: Normal appearance. She is well-developed. Genitourinary: Vulva normal. Breasts: Breasts are soft. Right: Normal. Left: Normal. Cardiovascular: Rate and Rhythm: Normal rate and [...] nursing note reviewed. Exam conducted with a cognos present. Vitals: Estimated body mass index is 39.87 kg/m?? as calculated from the following: Height as of 05/20/23: 5' 4 . Weight as of this encounter: 232 lb 4 oz. BP: 120/70 Patient's last menstrual period was 07/09/2024 (approximate). ASSESSMENT & PLAN ICD-10-CM 1. Well woman exam with routine gynecological exam Z01.419 Pap Smear HPV DNA probe, amplified 2. Vaginal discharge N89.8 3. Yeast infection B37.9 Annual Exam: Patient presents today for an annual exam. Patient states she is doing well and has complaints of vaginal discharge. Pap was obtained without difficulty. Obtained vaginal cultures as well. Orders Placed This Encounter Procedures HPV DNA probe, amplified Follow Up: Patient is to return in one year for annual unless needed otherwise. Documented by Elvira Freedman LPN on behalf of: Mark Dumont DO documented in this encounter Plan of Treatment Upcoming Encounters Date Type Department Care Team (Late st Contact Info) Description 08/08/2025 9:00 AM EDT Office Visit [facility] [address] [place] [place] [id number] Mark Dumont DO [address] [place] [address] Scheduled Orders Name Type Priority Associated Diagnoses Orde r Schedule Pap Smear Pathology and Cytology Routine Well woman exam with routine gynecological exam Ordered: 08/06/2024 HPV DNA probe, amplified Microbiology Routine Well woman exam with routine gynecological exam Ordered: 08/06/2024 documented as of this encounter Visit Diagnoses Diagnosis Well woman exam with routine gynecological exam Routine gynecological examination Vaginal discharge Leukorrhea, not specified as infective Yeast infection documented in this encounter Care Teams Geothermal Technician Relationship Specialty Start Date End Date Linda Altman DO [facility] [place] [address] PCP - General Family Medicine 08/06/24 documented as of this encounter
--- OUTSIDE RECORDS SUMMARY | 2024-08-06 15:08 | XMS_ITS | Encounter Summary ---
Author Organization [facility] Address [address] [place] [address] Care Team Providers Care It Sales Executive Name Role Phone Linda Sheppard DO Primary Care Provider [phone] Encounter Details Date Type Department Care Team (Late st Contact Info) Description 11/01/2023 Clinisync Result Encounter [facility] External Department Unsolicited Darwin Dumont, DO [address] [place] [id number] Social History Tobacco Use Types Packs/Day Years Used Date Smoking Tobacco: Never Assessed Comments Yes Sex and Gender Information Value Date Recorded Sex Assigned at Not on file Legal Sex Female 11:10 PM EDT Gender Identity Not on file Sexual Orientation Not on file documented as of this encounter Plan of Treatment Upcoming Encounters Date Type Department Care Team (Late Contact Info) Description 08/08/2025 9:00 AM EDT Office Visit [facility] OB [address] [place], [place] [phone] Darwin Dumont DO [facility] [place] [address] documented as of this encounter Procedures Procedure Name Priority Date/Time Associated Diagnosis Comments US OB BPP W NON-STRESS 11/01/2023 3:31 PM EDT documented in this encounter Results * US OB BPP W NON-STRESS (11/01/2023 3:31 PM EDT) Anatomical Region Laterality Modality Other 11/01/2023 3:31 PM EDT Narrative 11/01/2023 3:33 PM EDT [address] [address] Ultrasound Report Signed Patient: THUY CORTEZ MR#: [id number] : 1990 Acct:[id number] Age/Sex: 33 / F ADM Date: 11/01/23 Loc: US Attending Dr: Darwin Dumont D.O. Ordering Physician: Darwin Dumont D.O. Date of Service: 11/01/23 Procedure(s): US OB BPP w non-stress Accession Number(s): [id number] cc: LINDA SHEPPARD ; Darwin Dumont D.O. [address] [address] Patient Name: THUY CORTEZ MRN: [id number] date: 1990 Sex: F Assigned Patient Location: [facility] Current Patient Location: Accession/Order Number: [id number] Exam Date: 11/01/2023 12:45 Report Date: 11/01/2023 15:31 At the request of: DARWIN DUMONT Procedure: US OB BPP w non-stress EXAMINATION: US OB BPP w non-stress HISTORY:Monochorionic diamniotic twin COMPARISON: No relevant comparison available. TECHNIQUE: Ultrasound biophysical profile was performed in the radiology department. Baby A: BREATHING MOVEMENTS: 2 GROSS BODY MOVEMENTS: 2 TONE: 2 QUALITATIVE AMNIOTIC FLUID VOLUME: 2 PRESENTATION: Transverse, head to the maternal left HEART RATE: 133 AMNIOTIC FLUID VOLUME: Largest fluid pocket 6.6 x 4.3 cm GESTATIONAL AGE: 30 weeks 6 days US/US OB BPP w non-stress IMPRESSION: Total biophysical profile score: 8/8 Baby B: BREATHING MOVEMENTS: 2 GROSS BODY MOVEMENTS: 2 TONE: 2 QUALITATIVE AMNIOTIC FLUID VOLUME: 2 PRESENTATION: Transverse, head to the maternal left HEART RATE: 147 AMNIOTIC FLUID VOLUME: Largest fluid pocket 8.5 x 4.3 cm GESTATIONAL AGE: 30 weeks 6 days IMPRESSION: Total biophysical profile score: 8/8 Electronically authenticated by: DAMIR Patel: 11/01/2023 15:31 Dictated By: Damir Alvarez M.D. Signed By: 11/01/23 1533 DD/ 1531 TD/TT: Vice Chair: Procedure Note Radiology, Radiologist, - 11/01/2023 [place] [address] Ultrasound Report Signed Patient: THUY CORTEZMR#: [id number] : 1990Acct:[id number] Age/Sex: 33 / FADM Date: 11/01/23 Loc: US Attending Dr: Darwin Dumont D.O. Ordering Physician: Darwin Dumont D.O. Date of Service: 11/01/23 Procedure(s): US OB BPP w non-stress Accession Number(s): [id number] cc: LINDA SHEPPARD ; Darwin Dumont D.O. The [place] [address] Patient Name: THUY CORTEZ MRN: [id number] date: 1990 Sex: F Assigned Patient Location: [facility] Current Patient Location: US Accession/Order Number: [id number] Exam Date: 11/01/2023 12:45 Report Date: 11/01/2023 15:31 At the request of: DARWIN DUMONT Procedure: US OB BPP w non-stress EXAMINATION: US OB BPP w non-stress HISTORY:Monochorionic diamniotic twin COMPARISON: No relevant comparison available. TECHNIQUE: Ultrasound biophysical profile was performed in the radiology department. Baby A: BREATHING MOVEMENTS: 2 GROSS BODY MOVEMENTS: 2 TONE: 2 QUALITATIVE AMNIOTIC FLUID VOLUME: 2 PRESENTATION: Transverse, head to the maternal left HEART RATE: 133 AMNIOTIC FLUID VOLUME: Largest fluid pocket 6.6 x 4.3 cm GESTATIONAL AGE: 30 weeks 6 days US/US OB BPP w non-stress IMPRESSION: Total biophysical profile score: 8/8 Baby B: BREATHING MOVEMENTS: 2 GROSS BODY MOVEMENTS: 2 TONE: 2 QUALITATIVE AMNIOTIC FLUID VOLUME: 2 PRESENTATION: Transverse, head to the maternal left HEART RATE: 147 AMNIOTIC FLUID VOLUME: Largest fluid pocket 8.5 x 4.3 cm GESTATIONAL AGE: 30 weeks 6 days IMPRESSION: Total biophysical profile score: 8/8 Electronically authenticated by: DAMIR ALVAREZ Date: 11/01/2023 15:31 Dictated By: Damir Alvarez M.D. Signed By:11/01/23 1533 DD/ 1531 TD/TT: Vice Chair: Darwin Dumont DO [facility] Final Result documented in this encounter Visit Diagnoses Not on filedocumented in this encounter Care Teams It Sales Executive Relationship Specialty Start Date End Date Linda Sheppard DO [address] [place] [phone] PCP - General Family Medicine 08/06/24 documented as of this encounter
--- OUTSIDE RECORDS SUMMARY | 2024-08-06 15:08 | XMS_ITS | Encounter Summary ---
Author Organization [facility] Address [address] [place] [address] Care Team Providers Care District Branch Manager Name Role Phone Linda Sheppard DO Primary Care Provider [phone] Encounter Details Date Type Department Care Team (Late st Contact Info) Description 12/14/2023 Clinisync Result Encounter [facility] External Department Unsolicited Darwin Dumont, DO [address] [place] [id number] Social History Tobacco Use Types Packs/Day Years [...] 08/08/2025 9:00 AM EDT Office Visit [facility] OB [address] [phone] Darwin Dumont DO [facility] [address] [place] [phone] documented as of this encounter Procedures Procedure Name Priority Date/Time Associated Diagnosis Comments US OB BPP W NON-STRESS 12/14/2023 4:21 AM EDT documented in this encounter Results * US OB BPP W NON-STRESS (12/14/2023 4:21 AM EDT) Anatomical Region Laterality Modality Other 12/14/2023 4:21 AM EDT Narrative 12/14/2023 4:25 AM EDT [place] [id number] Ultrasound Report Signed Patient: THUY CORTEZ MR#: [id number] : 1990 Acct:[id number] Age/Sex: 33 / F ADM Date: 12/13/23 Loc: US Attending Dr: Darwin Dumont D.O. Ordering Physician: Darwin Dumont D.O. Date of Service: 12/13/23 Procedure(s): US OB BPP w non-stress Accession Number(s): [id number] cc: LINDA SHEPPARD ; Darwin Dumont D.O. [address] [address] Patient Name: THUY CORTEZ MRN: [id number] date: 1990 Sex: F Assigned Patient Location: US Current Patient Location: US Accession/Order Number: [id number] Exam Date: 12/13/2023 18:20 Report Date: 12/14/2023 04:21 At the request of: DARWIN DUMONT Procedure: US OB BPP w non-stress EXAMINATION: US OB BPP w non-stress, US OB BPP w non-stress HISTORY:MONOCHORIONIC DIAMNIOTIC TWIN O20.039 COMPARISON: Ultrasound OB biophysical 12/13/2023 TECHNIQUE: Ultrasound biophysical profile was performed in the radiology department. BREATHING MOVEMENTS: 2 / 2 GROSS BODY MOVEMENTS: 2 / 2 TONE: 2 / 2 QUALITATIVE AMNIOTIC FLUID VOLUME: 2 / 2 PRESENTATION: Cephalic / Transverse HEART RATE: 151 bpm / 134 bpm AMNIOTIC FLUID VOLUME: 10.5 x 4.9 cm / 3.5 x 5.3 cm GESTATIONAL AGE: 36 weeks 5 days US/US OB BPP w non-stress IMPRESSION: 1. Live twin intrauterine . 2. Total biophysical profile score: Baby A: 8 / Baby B: 8 Electronically authenticated by: DILLAN VALENCIA Date: 12/14/2023 04:21 Dictated By: Dillan Valencia M.D. Signed By: 12/14/235 DD/ 0 TD/TT: Physical Therapy Teacher: Procedure Note Radiology, Radiologist, - 12/14/2023 [place] [address] Ultrasound Report Signed Patient: THUY CORTEZMR#: [id number] : 1990Acct:[id number] Age/Sex: 33 / FADM Date: 12/13/23 Loc: US Attending Dr: Darwin Dumont D.O. Ordering Physician: Darwin Dumont D.O. Date of Service: 12/13/23 Procedure(s): US OB BPP w non-stress Accession Number(s): [id number] cc: LINDA SHEPPARD ; Darwin Dumont D.O. The [place] [id number] Patient Name: THUY CORTEZ MRN: [id number] date: 1990 Sex: F Assigned Patient Location: US Current Patient Location: US Accession/Order Number: [id number] Exam Date: 12/13/2023 18:20 Report Date: 12/14/2023 04:21 At the request of: DARWIN DUMONT Procedure: US OB BPP w non-stress EXAMINATION: US OB BPP w non-stress, US OB BPP w non-stress HISTORY:MONOCHORIONIC DIAMNIOTIC TWIN O20.039 COMPARISON: Ultrasound OB biophysical 12/13/2023 TECHNIQUE: Ultrasound biophysical profile was performed in the radiology department. BREATHING MOVEMENTS: 2 / 2 GROSS BODY MOVEMENTS: 2 / 2 TONE: 2 / 2 QUALITATIVE AMNIOTIC FLUID VOLUME: 2 / 2 PRESENTATION: Cephalic / Transverse HEART RATE: 151 bpm / 134 bpm AMNIOTIC FLUID VOLUME: 10.5 x 4.9 cm / 3.5 x 5.3 cm GESTATIONAL AGE: 36 weeks 5 days US/US OB BPP w non-stress IMPRESSION: 1. Live twin intrauterine . 2. Total biophysical profile score: Baby A: 8 / Baby B: 8 Electronically authenticated by: DILLAN VALENCIA Date: 12/14/2023 04:21 Dictated By: Dillan Valencia M.D. Signed By:12/14/23424 DD/ 0 TD/TT: Physical Therapy Teacher: us Darwin Dumont DO [facility] Final Result documented in this encounter Visit Diagnoses Not on filedocumented in this encounter Care Teams District Branch Manager Relationship Specialty Start Date End Date Linda Sheppard DO [address] [facility] [place] [address] PCP - General Family Medicine 08/06/24 documented as of this encounter
--- OUTSIDE RECORDS SUMMARY | 2024-08-06 15:08 | XMS_ITS | Encounter Summary ---
Author Organization [facility] Address [address] [place] [address] Care Team Providers Care Community Health Advisor Name Role Phone Linda Sheppard DO Primary Care Provider [phone] Encounter Details Date Type Department Care Team (Late st Contact Info) Description 11/01/2023 Clinisync Result Encounter [facility] External Department Unsolicited Darwin Dumont, DO [address] [place] [phone] Social History Tobacco Use Types Packs/Day Years [...] 08/08/2025 9:00 AM EDT Office Visit [facility] OB [address] [address] Darwin Dumont DO [facility] [place] [address] documented as of this encounter Procedures Procedure Name Priority Date/Time Associated Diagnosis Comments US OB BPP W NON-STRESS 11/01/2023 3:25 PM EDT documented in this encounter Results * US OB BPP W NON-STRESS (11/01/2023 3:25 PM EDT) Anatomical Region Laterality Modality Other 11/01/2023 3:25 PM EDT Narrative 11/01/2023 3:28 PM EDT [place] [id number] Ultrasound Report Signed Patient: THUY CORTEZ MR#: [id number] : 1990 Acct:[id number] Age/Sex: 33 / F ADM Date: 11/01/23 Loc: US Attending Dr: Darwin Dumont D.O. Ordering Physician: Darwin Dumont D.O. Date of Service: 11/01/23 Procedure(s): US OB BPP w non-stress Accession Number(s): [id number] cc: LINDA SHEPPARD ; Darwin Dumont D.O. [address] [address] Patient Name: THUY CORTEZ MRN: [id number] date: 1990 Sex: F Assigned Patient Location: US Current Patient Location: Accession/Order Number: [id number] Exam Date: 11/01/2023 12:45 Report Date: 11/01/2023 15:25 At the request of: DARWIN DUMONT Procedure: [...] w non-stress IMPRESSION: Total biophysical profile score: 10/12 Baby B: BREATHING MOVEMENTS: 2 GROSS BODY MOVEMENTS: 2 TONE: 2 QUALITATIVE AMNIOTIC FLUID VOLUME: 2 PRESENTATION: Transverse, head to the maternal left HEART RATE: 147 AMNIOTIC FLUID VOLUME: Largest fluid pocket 8.5 x 4.3 cm GESTATIONAL AGE: 30 weeks 6 days IMPRESSION: Total biophysical profile score: 10/12 Electronically authenticated by: DAMIR ALVAREZ Date: 11/01/2023 15:25 Dictated By: Damir Alvarez M.D. Signed By: 11/01/23 1528 DD/ 1525 TD/TT: Pear Picker: Procedure Note Radiology, Radiologist, - 11/01/2023 [place] [address] Ultrasound Report Signed Patient: THUY CORTEZMR#: [id number] : 1990Acct:[id number] Age/Sex: 33 / FADM Date: 11/01/23 Loc: US Attending Dr: Darwin Dumont D.O. Ordering Physician: Darwin Dumont D.O. Date of Service: 11/01/23 Procedure(s): US OB BPP w non-stress Accession Number(s): [id number] cc: LINDA SHEPPARD ; Darwin Dumont D.O. The [place] [address] Patient Name: THUY CORTEZ MRN: [id number] date: 1990 Sex: F Assigned Patient Location: US Current Patient Location: Accession/Order Number: [id number] Exam Date: 11/01/2023 12:45 Report Date: 11/01/2023 15:25 At the request of: DARWIN DUMONT Procedure: [...] Electronically authenticated by: DAMIR ALVAREZ Date: 11/01/2023 15:25 Dictated By: Damir Alvarez M.D. Signed By:11/01/23 1528 DD/ 1525 TD/TT: Pear Picker: us Darwin Dumont DO [facility] Final Result documented in this encounter Visit Diagnoses Not on filedocumented in this encounter Care Teams Community Health Advisor Relationship Specialty Start Date End Date Linda Sheppard DO [address] [facility] [place] [phone] PCP - General Family Medicine 08/06/24 documented as of this encounter
--- OUTSIDE RECORDS SUMMARY | 2024-08-06 15:08 | XMS_ITS | Encounter Summary ---
Author Organization [facility] Address [address] [place] [address] Care Team Providers Care Spectrographic Analyst Name Role Phone Linda Altman DO Primary Care Provider [phone] Encounter Details Date Type Department Care Team (Late Contact Info) Description 11/10/2023 Abstract [facility] OB [address], [place] [address] Mark Dumont [facility] Stephanie [place], [facility] Social History Tobacco Use Types Packs/Day Years Used Date Smoking Tobacco: Never Assessed Comments Yes Sex and Gender Information Value Date Recorded Sex Assigned at Not on file Legal Sex Female 11:10 PM EDT Gender Identity Not on file Sexual Orientation Not on file documented as of this encounter Plan of Treatment Upcoming Encounters Date Type Department Care Team ([facility] Contact Info) Description 08/08/2025 9:00 AM EDT Office Visit [facility] OB [address], [place] [address] Mark Dumont DO [address] [facility]11 documented as of this encounter Visit Diagnoses Not on filedocumented in this encounter Care Teams Spectrographic Analyst Relationship Specialty Start Date End Date Linda Altman DO [address] [place] [phone] PCP - General Family Medicine 08/06/24 documented as of this encounter
--- OUTSIDE RECORDS SUMMARY | 2024-08-06 15:08 | XMS_ITS | Encounter Summary ---
Author Organization [facility] Address [address] [place] [address] Care Team Providers Care Chainer Name Role Phone Linda Altman DO Primary Care Provider [phone] Encounter Details Date Type Department Care Team (Late Contact Info) Description 12/01/2023 Abstract [facility] OB [address], [place] [address] [facility] Stephanie [place], [facility] Social History Tobacco Use Types Packs/Day Years Used Date Smoking Tobacco: Never Assessed Comments Yes Sex and Gender Information Value Date Recorded Sex Assigned at Not on file Legal Sex Female 11:10 PM EDT Gender Identity Not on file Sexual Orientation Not on file documented as of this encounter Plan of Treatment Upcoming Encounters Date Type Department Care Team ([facility] Contact Info) Description 08/08/2025 9:00 AM EDT Office Visit [facility] OB [address], [place] [address] Mark Dumont DO [address] [facility] documented as of this encounter Visit Diagnoses Not on filedocumented in this encounter Care Teams Chainer Relationship Specialty Start Date End Date Linda Altman DO [address] [place] [phone] PCP - General Family Medicine 08/06/24 documented as of this encounter
--- OUTSIDE RECORDS SUMMARY | 2024-08-06 15:08 | XMS_ITS | Encounter Summary ---
Author Organization [facility] Address [address] [place] [address] Care Team Providers Care Machine Burrer Name Role Phone Linda Sheppard DO Primary Care Provider Encounter Details Date Type Department Care Team (Late st Contact Info) Description 12/14/2023 Clinisync Result Encounter [facility] External Department Unsolicited Darwin Dumont, DO [address] [place] [phone] Social History Tobacco Use Types Packs/Day Years [...] 08/08/2025 9:00 AM EDT Office Visit [facility] OB [address] [phone] Darwin Dumont DO [facility] [address] [place] [id number] documented as of this encounter Procedures Procedure Name Priority Date/Time Associated Diagnosis Comments US OB BPP W NON-STRESS 12/14/2023 4:21 AM EDT documented in this encounter Results * US OB BPP W NON-STRESS (12/14/2023 4:21 AM EDT) Anatomical Region Laterality Modality Other 12/14/2023 4:21 AM EDT Narrative 12/14/2023 4:25 AM EDT [place] [id number] Ultrasound Report Signed Patient: THUY CORTEZ MR#: [id number] : 1990 Acct:[id number] Age/Sex: 33 / F ADM Date: 12/13/23 Loc: US Attending Dr: Darwin Dumont D.O. Ordering Physician: Darwin Dumont D.O. Date of Service: 12/13/23 Procedure(s): US OB BPP w non-stress Accession Number(s): [id number] cc: LINDA SHEPPARD ; Darwin Dumont D.O. [address] [address] Patient Name: THUY CORTEZ MRN: [id number] date: 1990 Sex: F Assigned Patient Location: US Current Patient Location: US Accession/Order Number: [id number] Exam Date: 12/13/2023 18:20 Report Date: 12/14/2023 [...] Dictated By: Dillan Valencia M.D. Signed By: 12/14/23424 DD/ 0 TD/TT: Eyeglass Frames Inspector: Procedure Note Radiology, Radiologist, - 12/14/2023 [place] [address] Ultrasound Report Signed Patient: THUY CORTEZMR#: [id number] : 1990Acct:[id number] Age/Sex: 33 / FADM Date: 12/13/23 Loc: US Attending Dr: Darwin Dumont D.O. Ordering Physician: Darwin Dumont D.O. Date of Service: 12/13/23 Procedure(s): US OB BPP w non-stress Accession Number(s): [id number] cc: LINDA SHEPPARD ; Darwin Dumont D.O. The [place] [id number] Patient Name: THUY CORTEZ MRN: [id number] date: 1990 Sex: F Assigned Patient Location: US Current Patient Location: US Accession/Order Number: [id number] Exam Date: 12/13/2023 18:20 Report Date: 12/14/2023 [...] Valencia M.D. Signed By:12/14/23424 DD/ 0 TD/TT: Eyeglass Frames Inspector: us Darwin Dumont DO [facility] Final Result documented in this encounter Visit Diagnoses Not on filedocumented in this encounter Care Teams Machine Burrer Relationship Specialty Start Date End Date Linda Sheppard DO [address] [facility] [address] PCP - General Family Medicine 08/06/24 documented as of this encounter
--- OUTSIDE RECORDS SUMMARY | 2024-08-06 15:08 | XMS_ITS | Encounter Summary ---
Author Organization [facility] Address [address] [place] [address] Care Team Providers Care Enterprise Architect Name Role Phone Linda Altman DO Primary Care Provider [phone] Encounter Details Date Type Department Care Team (Late Contact Info) Description 12/15/2023 Abstract [facility] OB [address], [place] [address] Mark Dumont [facility] Stephanie [place], [facility] Social History Tobacco Use Types Packs/Day Years Used Date Smoking Tobacco: Never Assessed Comments Yes Sex and Gender Information Value Date Recorded Sex Assigned at Not on file Legal Sex Female 11:10 PM EDT Gender Identity Not on file Sexual Orientation Not on file documented as of this encounter Plan of Treatment Upcoming Encounters Date Type Department Care Team ([facility] Contact Info) Description 08/08/2025 9:00 AM EDT Office Visit [facility] OB [address], [place] [address] Mark Dumont DO [address] [facility] documented as of this encounter Visit Diagnoses Not on filedocumented in this encounter Care Teams Enterprise Architect Relationship Specialty Start Date End Date Linda Altman DO [address] [place] [phone] PCP - General Family Medicine 08/06/24 documented as of this encounter
--- OUTSIDE RECORDS SUMMARY | 2024-08-06 15:08 | XMS_ITS | Encounter Summary ---
Author Organization [facility] Address [address] [place] [address] Care Team Providers Care Beer Coil Cleaner Name Role Phone Linda Sheppard DO Primary Care Provider [phone] Encounter Details Date Type Department Care Team (Late st Contact Info) Description 11/29/2023 Clinisync Result Encounter [facility] External Department Unsolicited Darwin Dumont, DO [address] [place] [id number] Social History Tobacco Use Types Packs/Day Years [...] 08/08/2025 9:00 AM EDT Office Visit [facility] OB [address] [place] [phone] Darwin Dumont DO [employer] [place] [address] documented as of this encounter Procedures Procedure Name Priority Date/Time Associated Diagnosis Comments US OB BPP W NON-STRESS 11/29/2023 10:45 AM EDT documented in this encounter Results * US OB BPP W NON-STRESS (11/29/2023 10:45 AM EDT) Anatomical Region Laterality Modality Other 11/29/2023 10:4 5 AM EDT Narrative 11/29/2023 10:48 AM EDT [address] [address] Ultrasound Report Signed Patient: THUY CORTEZ MR#: [id number] : 1990 Acct:[id number] Age/Sex: 33 / F ADM Date: 11/29/23 Loc: [facility] 250-[address]: Darwin Dumont D.O. Ordering Physician: Darwin Dumont D.O. Date of Service: 11/29/23 Procedure(s): US OB BPP w non-stress Accession Number(s): [id number] cc: LINDA SHEPPARD ; Darwin Dumont D.O. [address] [address] Patient Name: THUY CORTEZ MRN: [id number] date: 1990 Sex: F Assigned Patient Location: [facility] Current Patient Location: [facility] Accession/Order Number: [id number] Exam Date: 11/29/2023 09:01 Report Date: 11/29/2023 10:45 At the request of: DARWIN DUMONT Procedure: US OB BPP w non-stress EXAMINATION: US OB BPP w non-stress, US OB BPP w non-stress HISTORY:Monochorionic diamniotic twin O30.039 COMPARISON: Ultrasound OB biophysical profile 11/22/2023 TECHNIQUE: Ultrasound biophysical profile was performed in the radiology department. BREATHING MOVEMENTS: 2 / 2 GROSS BODY MOVEMENTS: 2 / 2 TONE: 2 / 2 QUALITATIVE AMNIOTIC FLUID VOLUME: 2 / 2 PRESENTATION: Transverse / Transverse HEART RATE: 148 bpm / 158 bpm AMNIOTIC FLUID VOLUME: Deepest pocket 8.3 x 4.1 cm / Deepest Pocket: 5.3 x 3.8 cm GESTATIONAL AGE: 34 weeks 5 days US/US OB BPP w non-stress IMPRESSION: Total biophysical profile score: Baby A: 8 / Baby B: 8 Electronically authenticated by: DILLAN VALENCIA Date: 11/29/2023 10:45 Dictated By: Dillan Valencia M.D. Signed By: 11/29/23 1048 DD/ 1045 TD/TT: Consultant Internship: Procedure Note Radiology, Radiologist, - 11/29/2023 [place] [address] Ultrasound Report Signed Patient: THUY CORTEZMR#: [id number] : 1990Acct:[id number] Age/Sex: 33 / FADM Date: 11/29/23 Loc: [facility] 250-[address]: Darwin Dumont D.O. Ordering Physician: Darwin Dumont D.O. Date of Service: 11/29/23 Procedure(s): US OB BPP w non-stress Accession Number(s): [id number] cc: LINDA SHEPPARD ; Darwin Dumont D.O. The [place] [id number] Patient Name: THUY CORTEZ MRN: [id number] date: 1990 Sex: F Assigned Patient Location: [facility] Current Patient Location: [facility] Accession/Order Number: [id number] Exam Date: 11/29/2023 09:01 Report Date: 11/29/2023 10:45 At the request of: DARWIN DUMONT Procedure: US OB BPP w non-stress EXAMINATION: US OB BPP w non-stress, US OB BPP w non-stress HISTORY:Monochorionic diamniotic twin O30.039 COMPARISON: Ultrasound OB biophysical profile 11/22/2023 TECHNIQUE: Ultrasound biophysical profile was performed in the radiology department. BREATHING MOVEMENTS: 2 / 2 GROSS BODY MOVEMENTS: 2 / 2 TONE: 2 / 2 QUALITATIVE AMNIOTIC FLUID VOLUME: 2 / 2 PRESENTATION: Transverse / Transverse HEART RATE: 148 bpm / 158 bpm AMNIOTIC FLUID VOLUME: Deepest pocket 8.3 x 4.1 cm / Deepest Pocket: 5.3 x3.8 cm GESTATIONAL AGE: 34 weeks 5 days US/US OB BPP w non-stress IMPRESSION: Total biophysical profile score: Baby A: 8 / Baby B: 8 Electronically authenticated by: DILLAN VALENCIA Date: 11/29/2023 10:45 Dictated By: Dillan Valencia M.D. Signed By:11/29/23 1048 DD/ 1045 TD/TT: Consultant Internship: us Darwin Dumont DO [facility] Final Result documented in this encounter Visit Diagnoses Not on filedocumented in this encounter Care Teams Beer Coil Cleaner Relationship Specialty Start Date End Date Linda Sheppard DO [address] [facility] [place] [phone] PCP - General Family Medicine 08/06/24 documented as of this encounter
--- OUTSIDE RECORDS SUMMARY | 2024-08-06 15:08 | XMS_ITS | Encounter Summary ---
Author Organization [facility] Address [address] [place] [address] Care Team Providers Care Instructor Kindergarten Name Role Phone Linda Sheppard DO Primary Care Provider [phone] Encounter Details Date Type Department Care Team (Late st Contact Info) Description 12/06/2023 Clinisync Result Encounter [facility] External Department Unsolicited Darwin Dumont, DO [address] [place] [phone] Social History Tobacco Use Types Packs/Day Years [...] 08/08/2025 9:00 AM EDT Office Visit [facility] OB [address] [place] [phone] Darwin Dumont DO [facility] [place] [address] documented as of this encounter Procedures Procedure Name Priority Date/Time Associated Diagnosis Comments US OB BPP W NON-STRESS 12/06/2023 11:42 AM EDT documented in this encounter Results * US OB BPP W NON-STRESS (12/06/2023 11:42 AM EDT) Anatomical Region Laterality Modality Other 12/06/2023 11:4 2 AM EDT Narrative 12/06/2023 11:45 AM EDT [address] [address] Ultrasound Report Signed Patient: THUY CORTEZ MR#: [id number] : 1990 Acct:[id number] Age/Sex: 33 / F ADM Date: 12/06/23 Loc: US Attending Dr: Darwin Dumont D.O. Ordering Physician: Darwin Dumont D.O. Date of Service: 12/06/23 Procedure(s): US OB BPP w non-stress Accession Number(s): [id number] cc: LINDA SHEPPARD ; Darwin Dumont D.O. [address] [address] Patient Name: THUY CORTEZ MRN: [id number] date: 1990 Sex: F Assigned Patient Location: US Current Patient Location: Accession/Order Number: [id number] Exam Date: 12/06/2023 09:09 Report Date: 12/06/2023 11:42 At the request of: DARWIN DUMONT Procedure: US OB BPP w non-stress EXAMINATION: US OB BPP w non-stress, US OB BPP w non-stress HISTORY: Monochorionic diamniotic twin O30.039 COMPARISON: No relevant comparison available. BABY A BREATHING MOVEMENTS: 2 GROSS BODY MOVEMENTS: 2 TONE: 2 QUALITATIVE AMNIOTIC FLUID VOLUME: 2 PRESENTATION: Breech HEART RATE: 165 bpm AMNIOTIC FLUID VOLUME: 7.0 x 5.0 cm Largest pocket GESTATIONAL AGE: 35 weeks 5 days BABY B BREATHING MOVEMENTS: 2 GROSS BODY MOVEMENTS: 2 TONE: 2 QUALITATIVE AMNIOTIC FLUID VOLUME: 2 PRESENTATION: Transverse, head maternal right HEART RATE: 153 bpm AMNIOTIC FLUID VOLUME: 6.7 x 5.2 cm largest pocket GESTATIONAL AGE: 35 weeks 5 days CONCLUSION: Total biophysical profile score for baby A 8 and baby B 8. Electronically authenticated by: DAMIR ALVAREZ Date: 12/06/2023 11:42 Dictated By: Damir Alvarez M.D. Signed By: 12/06/23 1145 DD/ 1142 TD/TT: Rotoformer Backtender: Procedure Note Radiology, Radiologist, - 12/06/2023 The [place] [id number] Ultrasound Report Signed Patient: THUY CORTEZMR#: [id number] : 1990Acct:[id number] Age/Sex: 33 / FADM Date: 12/06/23 Loc: US Attending Dr: Darwin Dumont D.O. Ordering Physician: Darwin Dumont D.O. Date of Service: 12/06/23 Procedure(s): US OB BPP w non-stress Accession Number(s): [id number] cc: LINDA SHEPPARD ; Darwin Dumont D.O. The [address] [address] Patient Name: THUY CORTEZ MRN: [id number] date: 1990 Sex: F Assigned Patient Location: US Current Patient Location: Accession/Order Number: [id number] Exam Date: 12/06/2023 09:09 Report Date: 12/06/2023 11:42 At the request of: DARWIN DUMONT Procedure: US OB BPP w non-stress EXAMINATION: US OB BPP w non-stress, US OB BPP w non-stress HISTORY: Monochorionic diamniotic twin O30.039 COMPARISON: No relevant comparison available. BABY A BREATHING MOVEMENTS: 2 GROSS BODY MOVEMENTS: 2 TONE: 2 QUALITATIVE AMNIOTIC FLUID VOLUME: 2 PRESENTATION: Breech HEART RATE: 165 bpm AMNIOTIC FLUID VOLUME: 7.0 x 5.0 cm Largest pocket GESTATIONAL AGE: 35 weeks 5 days BABY B BREATHING MOVEMENTS: 2 GROSS BODY MOVEMENTS: 2 TONE: 2 QUALITATIVE AMNIOTIC FLUID VOLUME: 2 PRESENTATION: Transverse, head maternal right HEART RATE: 153 bpm AMNIOTIC FLUID VOLUME: 6.7 x 5.2 cm largest pocket GESTATIONAL AGE: 35 weeks 5 days CONCLUSION: Total biophysical profile score for baby A 8 and baby B 8. Electronically authenticated by: DAMIR ALVAREZ Date: 12/06/2023 11:42 Dictated By: Damir Alvarez M.D. Signed By:12/06/23 1145 DD/ 1142 TD/TT: Rotoformer Backtender: Darwin Dumont DO [facility] Final Result documented in this encounter Visit Diagnoses Not on filedocumented in this encounter Care Teams Instructor Kindergarten Relationship Specialty Start Date End Date Linda Sheppard DO [address] [facility] [place] [phone] PCP - General Family Medicine 08/06/24 documented as of this encounter
--- OUTSIDE RECORDS SUMMARY | 2024-08-06 15:08 | XMS_ITS | Encounter Summary ---
Author Organization [facility] Address [address] [place] [address] Care Team Providers Care Credit Assessment Analyst Name Role Phone Linda Altman DO Primary Care Provider [phone] Encounter Details Date Type Department Care Team (Late Contact Info) Description 12/18/2023 Abstract [facility] OB [address] [place] [address] Christen Rivera, IRAIDAM [address] [place] [address] Social History Tobacco Use Types Packs/Day Years Used Date Smoking Tobacco: Never Assessed Comments Yes Sex and Gender Information Value Date Recorded Sex Assigned at Not on file Legal Sex Female 11:10 PM EDT Gender Identity Not on file Sexual Orientation Not on file documented as of this encounter Plan of Treatment Upcoming Encounters Date Type Department Care Team ([facility] Contact Info) Description 08/08/2025 9:00 AM EDT Office Visit [facility] OB [address] [place] [address] Mark Dumont DO [address] [facility] [place] [address] documented as of this encounter Visit Diagnoses Not on filedocumented in this encounter Care Teams Credit Assessment Analyst Relationship Specialty Start Date End Date Linda Altman DO [address] [place] [phone] PCP - General Family Medicine 08/06/24 documented as of this encounter
--- OUTSIDE RECORDS SUMMARY | 2024-08-06 15:08 | XMS_ITS | Encounter Summary ---
Author Organization [facility] Address [address] [place] [address] Care Team Providers Care Computer Customer Support Specialist Name Role Phone Linda Altman DO Primary Care Provider [phone] Encounter Details Date Type Department Care Team (Late Contact Info) Description 12/15/2023 Abstract [facility] OB [address] [place], [place] [address] Mark Dumont [facility] Stephanie [place], [facility] Social History Tobacco Use Types Packs/Day Years Used Date Smoking Tobacco: Never Assessed Comments Yes Sex and Gender Information Value Date Recorded Sex Assigned at Not on file Legal Sex Female 11:10 PM EDT Gender Identity Not on file Sexual Orientation Not on file documented as of this encounter Plan of Treatment Upcoming Encounters Date Type Department Care Team ([facility] Contact Info) Description 08/08/2025 9:00 AM EDT Office Visit [facility] OB [address] [place], [place] [address] Mark Dumont DO [address] [facility] documented as of this encounter Visit Diagnoses Not on filedocumented in this encounter Care Teams Computer Customer Support Specialist Relationship Specialty Start Date End Date Linda Altman DO [address] [place] [phone] PCP - General Family Medicine 08/06/24 documented as of this encounter
--- OUTSIDE RECORDS SUMMARY | 2024-08-06 15:08 | XMS_ITS | Encounter Summary ---
Author Organization [facility] Address [address] [place] [address] Care Team Providers Care Reimbursement Director Name Role Phone Linda Altman DO Primary Care Provider [phone] Encounter Details Date Type Department Care Team (Late Contact Info) Description 11/24/2023 Abstract [facility] OB [address] [place], [place] [address] Mark Dumont [facility] Stephanie [place], [facility] Social History Tobacco Use Types Packs/Day Years Used Date Smoking Tobacco: Never Assessed Comments Yes Sex and Gender Information Value Date Recorded Sex Assigned at Not on file Legal Sex Female 11:10 PM EDT Gender Identity Not on file Sexual Orientation Not on file documented as of this encounter Plan of Treatment Upcoming Encounters Date Type Department Care Team ([facility] Contact Info) Description 08/08/2025 9:00 AM EDT Office Visit [facility] OB [address] [place] [address] Mark Dumont DO [address] [facility] documented as of this encounter Visit Diagnoses Not on filedocumented in this encounter Care Teams Reimbursement Director Relationship Specialty Start Date End Date Linda Altman DO [address] [place] [phone] PCP - General Family Medicine 08/06/24 documented as of this encounter
--- OUTSIDE RECORDS SUMMARY | 2024-08-06 15:08 | XMS_ITS | Encounter Summary ---
Author Organization [facility] Address [address] [place] [address] Care Team Providers Care Contact Lens Assistant Name Role Phone Linda Sheppard DO Primary Care Provider [phone] Encounter Details Date Type Department Care Team (Late st Contact Info) Description 11/22/2023 Clinisync Result Encounter [facility] External Department Unsolicited Darwin Dumont, DO [address] [place] [id number] Social History Tobacco Use Types Packs/Day Years [...] 08/08/2025 9:00 AM EDT Office Visit [facility] OB [address] [place] [address] Darwin Dumont DO [facility] [place] [address] documented as of this encounter Procedures Procedure Name Priority Date/Time Associated Diagnosis Comments US OB BPP W NON-STRESS 11/22/2023 12:41 PM EDT documented in this encounter Results * US OB BPP W NON-STRESS (11/22/2023 12:41 PM EDT) Anatomical Region Laterality Modality Other 11/22/2023 12:4 1 PM EDT Narrative 11/22/2023 12:43 PM EDT [address] [address] Ultrasound Report Signed Patient: THUY CORTEZ MR#: [id number] : 1990 Acct:[id number] Age/Sex: 33 / F ADM Date: 11/22/23 Loc: US Attending Dr: Darwin Dumont D.O. Ordering Physician: Darwin Dumont D.O. Date of Service: 11/22/23 Procedure(s): US OB BPP w non-stress Accession Number(s): [id number] cc: LINDA SHEPPARD ; Darwin Dumont D.O. [address] [address] Patient Name: THUY CORTEZ MRN: [id number] date: 1990 Sex: F Assigned Patient Location: US Current Patient Location: Accession/Order Number: [id number] Exam Date: 11/22/2023 09:05 Report Date: 11/22/2023 12:41 At the request of: DARWIN DUMONT Procedure: US OB BPP w non-stress EXAMINATION: US OB BPP w non-stress, US OB BPP w non-stress HISTORY: Monochorionic diamniotic twin COMPARISON: No relevant comparison available. TECHNIQUE: Ultrasound biophysical profile was performed in the radiology department. non-reactive stress testing was performed by nursing staff in the birthing center. FETUS A: FINDINGS: BREATHING MOVEMENTS: 2 GROSS BODY MOVEMENTS: 2 TONE: 2 QUALITATIVE AMNIOTIC FLUID VOLUME: 2 PRESENTATION: Cephalic HEART RATE: 141 bpm AMNIOTIC FLUID VOLUME: Largest fluid pocket 7.6 x 9.5 cm GESTATIONAL AGE: 33 weeks 6 days US/US OB BPP w non-stress IMPRESSION: Total biophysical profile score: 8 FETUS A: FINDINGS: BREATHING MOVEMENTS: 2 GROSS BODY MOVEMENTS: 2 TONE: 2 QUALITATIVE AMNIOTIC FLUID VOLUME: 2 PRESENTATION: Transverse head to the maternal right HEART RATE: 138 bpm AMNIOTIC FLUID VOLUME: Largest fluid pocket 5.5 x 7.5 cm GESTATIONAL AGE: 33 weeks 6 days IMPRESSION: Total biophysical profile score: 8 Electronically authenticated by: DAMIR ALVAREZ Date: 11/22/2023 12:41 Dictated By: Damir Alvarez M.D. Signed By: 11/22/23 1243 DD/ 1241 TD/TT: Boring Machine Operator Vertical: Procedure Note Radiology, Radiologist, - 11/22/2023 [place] [address] Ultrasound Report Signed Patient: THUY CORTEZMR#: [id number] : 1990Acct:[id number] Age/Sex: 33 / FADM Date: 11/22/23 Loc: US Attending Dr: Darwin Dumont D.O. Ordering Physician: Darwin Dumont D.O. Date of Service: 11/22/23 Procedure(s): US OB BPP w non-stress Accession Number(s): [id number] cc: LINDA SHEPPARD ; Darwin Dumont D.O. The [address] [address] Patient Name: THUY CORTEZ MRN: [id number] date: 1990 Sex: F Assigned Patient Location: Current Patient Location: Accession/Order Number: [id number] Exam Date: 11/22/2023 09:05 Report Date: 11/22/2023 12:41 At the request of: DARWIN DUMONT Procedure: US OB BPP w non-stress EXAMINATION: US OB BPP w non-stress, US OB BPP w non-stress HISTORY: Monochorionic diamniotic twin COMPARISON: No relevant comparison available. TECHNIQUE: Ultrasound biophysical profile was performed in the radiology department. non-reactive stress testing was performed by nursingstaff in the birthing center. FETUS A: FINDINGS: BREATHING MOVEMENTS: 2 GROSS BODY MOVEMENTS: 2 TONE: 2 QUALITATIVE AMNIOTIC FLUID VOLUME: 2 PRESENTATION: Cephalic HEART RATE: 141 bpm AMNIOTIC FLUID VOLUME: Largest fluid pocket 7.6 x 9.5 cm GESTATIONAL AGE: 33 weeks 6 days US/US OB BPP w non-stress IMPRESSION: Total biophysical profile score: 8 FETUS A: FINDINGS: BREATHING MOVEMENTS: 2 GROSS BODY MOVEMENTS: 2 TONE: 2 QUALITATIVE AMNIOTIC FLUID VOLUME: 2 PRESENTATION: Transverse head to the maternal right HEART RATE: 138 bpm AMNIOTIC FLUID VOLUME: Largest fluid pocket 5.5 x 7.5 cm GESTATIONAL AGE: 33 weeks 6 days IMPRESSION: Total biophysical profile score: 8 Electronically authenticated by: DAMIR ALVAREZ Date: 11/22/2023 12:41 Dictated By: Damir Alvarez M.D. Signed By:11/22/23 1243 DD/ 1241 TD/TT: Boring Machine Operator Vertical: us Darwin Julia DO [facility] Final Result documented in this encounter Visit Diagnoses Not on filedocumented in this encounter Care Teams Contact Lens Assistant Relationship Specialty Start Date End Date Linda Sheppard DO [address] [facility] [place] [phone] PCP - General Family Medicine 08/06/24 documented as of this encounter
--- OUTSIDE RECORDS SUMMARY | 2024-08-06 15:08 | XMS_ITS | Encounter Summary ---
Author Organization [facility] Address [address] [place] [address] Care Team Providers Care Department Clerk Name Role Phone Linda Sheppard DO Primary Care Provider [phone] Encounter Details Date Type Department Care Team (Late st Contact Info) Description 12/06/2023 Clinisync Result Encounter [facility] External Department Unsolicited Darwin Dumont, DO [address] [place] [phone] Social History Tobacco Use Types Packs/Day Years [...] 08/08/2025 9:00 AM EDT Office Visit [facility] OB [address] [place] [phone] Darwin Dumont DO [facility] [place] [address] documented as of this encounter Procedures Procedure Name Priority Date/Time Associated Diagnosis Comments US OB BPP W NON-STRESS 12/06/2023 11:42 AM EDT documented in this encounter Results * US OB BPP W NON-STRESS (12/06/2023 11:42 AM EDT) Anatomical Region Laterality Modality Other 12/06/2023 11:4 2 AM EDT Narrative 12/06/2023 11:45 AM EDT [address] [address] Ultrasound Report Signed Patient: THUY CORTEZ MR#: [id number] : 1990 Acct:[id number] Age/Sex: 33 / F ADM Date: 12/06/23 Loc: US Attending Dr: Darwin Dumont D.O. Ordering Physician: Darwin Dumont D.O. Date of Service: 12/06/23 Procedure(s): US OB BPP w non-stress Accession Number(s): [id number] cc: LINDA SHEPPARD ; Darwin Dumont D.O. [address] [address] Patient Name: THUY CORTEZ MRN: [id number] date: 1990 Sex: F Assigned Patient Location: [facility] Current Patient Location: Accession/Order Number: [id number] Exam Date: 12/06/2023 09:09 Report Date: 12/06/2023 [...] Signed By: 12/06/23 1145 DD/ 1142 TD/TT: Dimethylaniline Sulfator Operator: Procedure Note Radiology, Radiologist, - 12/06/2023 [place] [address] Ultrasound Report Signed Patient: THUY CORTEZMR#: [id number] : 1990Acct:[id number] Age/Sex: 33 / FADM Date: 12/06/23 Loc: US Attending Dr: Darwin Dumont D.O. Ordering Physician: Darwin Dumont D.O. Date of Service: 12/06/23 Procedure(s): US OB BPP w non-stress Accession Number(s): [id number] cc: LINDA SHEPPARD ; Darwin Dumont D.O. The [place] [id number] Patient Name: THUY CORTEZ MRN: [id number] date: 1990 Sex: F Assigned Patient Location: [facility] Current Patient Location: Accession/Order Number: [id number] Exam Date: 12/06/2023 09:09 Report Date: 12/06/2023 [...] M.D. Signed By:12/06/23 1145 DD/ 1142 TD/TT: Dimethylaniline Sulfator Operator: Darwin Dumont DO [facility] Final Result documented in this encounter Visit Diagnoses Not on filedocumented in this encounter Care Teams Department Clerk Relationship Specialty Start Date End Date Linda Sheppard DO [address] [facility] [place] [phone] PCP - General Family Medicine 08/06/24 documented as of this encounter
--- OUTSIDE RECORDS SUMMARY | 2024-08-06 15:08 | XMS_ITS | Encounter Summary ---
Author Organization [facility] Address [address] [place] [address] Care Team Providers Care Bow Rehairer Name Role Phone Linda Sheppard DO Primary Care Provider [phone] Encounter Details Date Type Department Care Team (Late st Contact Info) Description 11/22/2023 Clinisync Result Encounter [facility] External Department Unsolicited Darwin Dumont, DO [address] [place] [id number] Social History Tobacco Use Types Packs/Day Years [...] 08/08/2025 9:00 AM EDT Office Visit [facility] OB [address] [place] [phone] Darwin Dumont DO [facility] [address] documented as of this encounter Procedures Procedure Name Priority Date/Time Associated Diagnosis Comments US OB BPP W NON-STRESS 11/22/2023 12:41 PM EDT documented in this encounter Results * US OB BPP W NON-STRESS (11/22/2023 12:41 PM EDT) Anatomical Region Laterality Modality Other 11/22/2023 12:4 1 PM EDT Narrative 11/22/2023 12:43 PM EDT [address] [address] Ultrasound Report Signed Patient: THUY CORTEZ MR#: [id number] : 1990 Acct:[id number] Age/Sex: 33 / F ADM Date: 11/22/23 Loc: US Attending Dr: Darwin Dumont D.O. Ordering Physician: Darwin Dumont D.O. Date of Service: 11/22/23 Procedure(s): US OB BPP w non-stress Accession Number(s): [id number] cc: LINDA SHEPPARD ; Darwin Dumont D.O. [address] [address] Patient Name: THUY CORTEZ MRN: [id number] date: 1990 Sex: F Assigned Patient Location: [facility] Current Patient Location: Accession/Order Number: [id number] Exam Date: 11/22/2023 09:05 Report Date: 11/22/2023 [...] Signed By: 11/22/23 1243 DD/ 1241 TD/TT: Spin Tank Tender: Procedure Note Radiology, Radiologist, - 11/22/2023 [place] [address] Ultrasound Report Signed Patient: THUY CORTEZMR#: [id number] : 1990Acct:[id number] Age/Sex: 33 / FADM Date: 11/22/23 Loc: US Attending Dr: Darwin Dumont D.O. Ordering Physician: Darwin Dumont D.O. Date of Service: 11/22/23 Procedure(s): US OB BPP w non-stress Accession Number(s): [id number] cc: LINDA SHEPPARD ; Dariwn Dumont D.O. The [address] [address] Patient Name: THUY CORTEZ MRN: [id number] date: 1990 Sex: F Assigned Patient Location: [facility] Current Patient Location: Accession/Order Number: [id number] Exam Date: 11/22/2023 09:05 Report Date: 11/22/2023 [...] M.D. Signed By:11/22/23 1243 DD/ 1241 TD/TT: Spin Tank Tender: us Darwin Julia DO [facility] Final Result documented in this encounter Visit Diagnoses Not on filedocumented in this encounter Care Teams Bow Rehairer Relationship Specialty Start Date End Date Linda Sheppard DO [address] [facility] [place] [address] PCP - General Family Medicine 08/06/24 documented as of this encounter
--- OUTSIDE RECORDS SUMMARY | 2024-08-06 15:08 | XMS_ITS | Encounter Summary ---
Author Organization [facility] Address [address] [place] [address] Care Team Providers Care Graphic Arts Technician Name Role Phone Linda Sheppard DO Primary Care Provider [phone] Encounter Details Date Type Department Care Team (Late st Contact Info) Description 11/08/2023 Clinisync Result Encounter [facility] External Department Unsolicited Darwin Dumont, DO [address] [place] [phone] Social History Tobacco Use Types Packs/Day Years [...] 08/08/2025 9:00 AM EDT [facility] Visit [facility] OB [address] [place] [phone] Darwin Dumont DO [facility] [place] [address] documented as of this encounter Procedures Procedure Name Priority Date/Time Associated Diagnosis Comments US OB BPP W NON-STRESS 11/08/2023 8:39 AM EDT documented in this encounter Results * US OB BPP W NON-STRESS (11/08/2023 8:39 AM EDT) Anatomical Region Laterality Modality Other 11/08/2023 8:39 AM EDT Narrative 11/08/2023 8:41 [place] [address] Ultrasound Report Signed Patient: THUY CORTEZ MR#: [id number] : 1990 Acct:[id number] Age/Sex: 33 / F ADM Date: 11/08/23 Loc: [facility] 250-[address]: Darwin Dumont D.O. Ordering Physician: Darwin Dumont D.O. Date of Service: 11/08/23 Procedure(s): US OB BPP w non-stress Accession Number(s): [id number] cc: LINDA SHEPPARD ; Darwin Dumont D.O. [address] [address] Patient Name: THUY CORTEZ MRN: [id number] date: 1990 Sex: F Assigned Patient Location: [facility] Current Patient Location: [facility] Accession/Order Number: [id number] Exam Date: 11/08/2023 07:35 Report Date: 11/08/2023 08:39 At the request of: DARWIN DUMONT Procedure: US OB BPP w non-stress EXAMINATION: US OB BPP w non-stress, US OB BPP w non-stress HISTORY:MONOCHORIONIC DIAMNIOTIC TWIN COMPARISON: No relevant comparison available. TECHNIQUE: Ultrasound biophysical profile was performed in the radiology department. BREATHING MOVEMENTS: 2; 2 GROSS BODY MOVEMENTS: 2; 2 TONE: 2; 2 QUALITATIVE AMNIOTIC FLUID VOLUME: 2; 2 PRESENTATION: Cephalic: Breech HEART RATE: 129 bpm; 148 bpm AMNIOTIC FLUID VOLUME: 7.7 x 3.5 cm pocket; 8.5 x 6.3 cm pocket GESTATIONAL AGE: 31 weeks 5 days US/US OB BPP w non-stress IMPRESSION: Total biophysical profile score: Baby A: 8 Baby B: 8 Electronically authenticated by: DILLAN VALENCIA Date: 11/08/2023 08:39 Dictated By: Dillan Valencia M.D. Signed By: 11/08/2341 DD/ 0839 TD/TT: Long Goods Drier: Procedure Note Radiology, Radiologist, - 11/08/2023 [place] [address] Ultrasound Report Signed Patient: THUY CORTEZMR#: [id number] : 1990Acct:[id number] Age/Sex: 33 / FADM Date: 11/08/23 Loc: [facility] 250-[address]: Darwin Dumont D.O. Ordering Physician: Darwin Dumont D.O. Date of Service: 11/08/23 Procedure(s): US OB BPP w non-stress Accession Number(s): [id number] cc: LINDA SHEPPARD ; Darwin Dumont D.O. The [place] [address] Patient Name: THUY CORTEZ MRN: [id number] date: 1990 Sex: F Assigned Patient Location: [facility] Current Patient Location: [facility] Accession/Order Number: [id number] Exam Date: 11/08/2023 07:35 Report Date: 11/08/2023 08:39 At the request of: DARWIN DUMONT Procedure: US OB BPP w non-stress EXAMINATION: US OB BPP w non-stress, US OB BPP w non-stress HISTORY:MONOCHORIONIC DIAMNIOTIC TWIN COMPARISON: No relevant comparison available. TECHNIQUE: Ultrasound biophysical profile was performed in the radiology department. BREATHING MOVEMENTS: 2; 2 GROSS BODY MOVEMENTS: 2; 2 TONE: 2; 2 QUALITATIVE AMNIOTIC FLUID VOLUME: 2; 2 PRESENTATION: Cephalic: Breech HEART RATE: 129 bpm; 148 bpm AMNIOTIC FLUID VOLUME: 7.7 x 3.5 cm pocket; 8.5 x 6.3 cm pocket GESTATIONAL AGE: 31 weeks 5 days US/US OB BPP w non-stress IMPRESSION: Total biophysical profile score: Baby A: 8 Baby B: 8 Electronically authenticated by: DILLAN VALENCIA Date: 11/08/2023 08:39 Dictated By: Dillan Valencia M.D. Signed By:11/08/2341 DD/ TD/TT: Long Goods Drier: us Darwin Dumont DO [facility] Final Result documented in this encounter Visit Diagnoses Not on filedocumented in this encounter Care Teams Graphic Arts Technician Relationship Specialty Start Date End Date Linda Sheppard DO [address] [facility] [place] [address] PCP - General Family Medicine 08/06/24 documented as of this encounter
--- OUTSIDE RECORDS SUMMARY | 2024-08-06 15:08 | XMS_ITS | Encounter Summary ---
Author Organization [facility] Address [address] [place] [address] Care Team Providers Care Manager Business Process Name Role Phone Linda Altman DO Primary Care Provider [phone] Encounter Details Date Type Department Care Team (Late Contact Info) Description 11/24/2023 Abstract [facility] OB [address], [place] [address] Mark Dumont [facility] Stephanie Martinez, [facility]11 Social History Tobacco Use Types Packs/Day Years Used Date Smoking Tobacco: Never Assessed Comments Yes Sex and Gender Information Value Date Recorded Sex Assigned at Not on file Legal Sex Female 11:10 PM EDT Gender Identity Not on file Sexual Orientation Not on file documented as of this encounter Plan of Treatment Upcoming Encounters Date Type Department Care Team ([facility] Contact Info) Description 08/08/2025 9:00 AM EDT Office Visit [facility] OB [address], [place] [address] Mark Dumont DO [address] [facility]11 documented as of this encounter Visit Diagnoses Not on filedocumented in this encounter Care Teams Manager Business Process Relationship Specialty Start Date End Date Linda Altman DO [address] [place] [phone] PCP - General Family Medicine 08/06/24 documented as of this encounter
--- OUTSIDE RECORDS SUMMARY | 2024-08-06 15:08 | XMS_ITS | Encounter Summary ---
Author Organization [facility] Address [address] [place] [address] Care Team Providers Care Tub Operator Name Role Phone Linda Sheppard DO Primary Care Provider [phone] Encounter Details Date Type Department Care Team (Late st Contact Info) Description 11/08/2023 Clinisync Result Encounter [facility] External Department Unsolicited Darwin Dumont, DO [address] [place] [phone] Social History Tobacco Use Types Packs/Day Years [...] 08/08/2025 9:00 AM EDT Office Visit [facility] OB [address] [place] [phone] Darwin Dumont DO [facility] [place] [address] documented as of this encounter Procedures Procedure Name Priority Date/Time Associated Diagnosis Comments US OB BPP W NON-STRESS 11/08/2023 8:39 AM EDT documented in this encounter Results * US OB BPP W NON-STRESS (11/08/2023 8:39 AM EDT) Anatomical Region Laterality Modality Other 11/08/2023 8:39 AM EDT Narrative 11/08/2023 8:41 [place] [address] Ultrasound Report Signed Patient: THUY CORTEZ MR#: [id number] : 1990 Acct:[id number] Age/Sex: 33 / F ADM Date: 11/08/23 Loc: [facility] 250-[address]: Darwin Dumont D.O. Ordering Physician: Darwin Dumont D.O. Date of Service: 11/08/23 Procedure(s): US OB BPP w non-stress Accession Number(s): [id number] cc: LINDA SHEPPARD ; Darwin Dumont D.O. [address] [address] Patient Name: THUY CORTEZ MRN: [id number] date: 1990 Sex: F Assigned Patient Location: [facility] Current Patient Location: [facility] Accession/Order Number: [id number] Exam Date: 11/08/2023 07:35 Report Date: 11/08/2023 [...] Dictated By: Dillan Valencia M.D. Signed By: 11/08/23 0841 DD/ 0839 TD/TT: Featherer: Procedure Note Radiology, Radiologist, - 11/08/2023 [place] [address] Ultrasound Report Signed Patient: THUY CORTEZMR#: [id number] : 1990Acct:[id number] Age/Sex: 33 / FADM Date: 11/08/23 Loc: [facility] 250-[address]: Darwin Dumont D.O. Ordering Physician: Darwin Dumont D.O. Date of Service: 11/08/23 Procedure(s): US OB BPP w non-stress Accession Number(s): [id number] cc: LINDA SHEPPARD ; Darwin Dumont D.O. The [place] [address] Patient Name: THUY CORTEZ MRN: [id number] date: 1990 Sex: F Assigned Patient Location: [facility] Current Patient Location: [facility] Accession/Order Number: [id number] Exam Date: 11/08/2023 07:35 Report Date: 11/08/2023 [...] Dillan Valencia M.D. Signed By:11/08/2341 DD/ TD/TT: Featherer: us Darwin Dumont DO [facility] Final Result documented in this encounter Visit Diagnoses Not on filedocumented in this encounter Care Teams Tub Operator Relationship Specialty Start Date End Date Linda Sheppard DO [address] [facility] [place] [address] PCP - General Family Medicine 08/06/24 documented as of this encounter
--- OUTSIDE RECORDS SUMMARY | 2024-08-06 15:08 | XMS_ITS | Encounter Summary ---
Author Organization [facility] Address [address] [place] [address] Care Team Providers Care Band Top Maker Name Role Phone Linda Altman DO Primary Care Provider [phone] Encounter Details Date Type Department Care Team (Late Contact Info) Description 12/08/2023 Abstract [facility] OB [address] [place], [place] [address] Mark Dumont [facility] Stephanie Martinez, [facility]11 Social History Tobacco Use Types Packs/Day Years Used Date Smoking Tobacco: Never Assessed Comments Yes Sex and Gender Information Value Date Recorded Sex Assigned at Not on file Legal Sex Female 11:10 PM EDT Gender Identity Not on file Sexual Orientation Not on file documented as of this encounter Plan of Treatment Upcoming Encounters Date Type Department Care Team ([facility] Contact Info) Description 08/08/2025 9:00 AM EDT Office Visit [facility] OB [address] [place], [place] [address] Mark Dumont DO [address] [facility]11 documented as of this encounter Visit Diagnoses Not on filedocumented in this encounter Care Teams Band Top Maker Relationship Specialty Start Date End Date Linda Altman DO [address] [place] [phone] PCP - General Family Medicine 08/06/24 documented as of this encounter
--- OUTSIDE RECORDS SUMMARY | 2024-08-06 15:08 | XMS_ITS | Encounter Summary ---
Author Organization [facility] Address [address] [place] [address] Care Team Providers Care Foreign Car Mechanic Name Role Phone Linda Sheppard DO Primary Care Provider [phone] Encounter Details Date Type Department Care Team (Late st Contact Info) Description 11/29/2023 Clinisync Result Encounter [facility] External Department Unsolicited Darwin Dumont, DO [address] [place] [phone] Social History Tobacco Use Types Packs/Day Years [...] Visit [facility] OB [address] [place] [address] Darwin Dumont DO [facility] [place] [address] documented as of this encounter Procedures Procedure Name Priority Date/Time Associated Diagnosis Comments US OB BPP W NON-STRESS 11/29/2023 10:45 AM EDT documented in this encounter Results * US OB BPP W NON-STRESS (11/29/2023 10:45 AM EDT) Anatomical Region Laterality Modality Other 11/29/2023 10:4 5 AM EDT Narrative 11/29/2023 10:48 AM EDT [address] [address] Ultrasound Report Signed Patient: THUY CORTEZ MR#: [id number] : 1990 Acct:[id number] Age/Sex: 33 / F ADM Date: 11/29/23 Loc: [facility] 250-[address]: Darwin Dumont D.O. Ordering Physician: Darwin Dumont D.O. Date of Service: 11/29/23 Procedure(s): US OB BPP w non-stress Accession Number(s): [id number] cc: LINDA SHEPPARD ; Darwin Dumont D.O. [address] [address] Patient Name: THUY CORTEZ MRN: [id number] date: 1990 Sex: F Assigned Patient Location: [facility] Current Patient Location: [facility] Accession/Order Number: [id number] Exam Date: 11/29/2023 09:01 Report Date: 11/29/2023 [...] Signed By: 11/29/23 1048 DD/ 1045 TD/TT: Film Technician: Procedure Note Radiology, Radiologist, - 11/29/2023 [place] [address] Ultrasound Report Signed Patient: THUY CORTEZMR#: [id number] : 1990Acct:[id number] Age/Sex: 33 / FADM Date: 11/29/23 Loc: [facility] 250-[address]: Darwin Dumont D.O. Ordering Physician: Darwin Dumont D.O. Date of Service: 11/29/23 Procedure(s): US OB BPP w non-stress Accession Number(s): [id number] cc: LINDA SHEPPARD ; Darwin Dumont D.O. The [place] [id number] Patient Name: THUY CORTEZ MRN: [id number] date: 1990 Sex: F Assigned Patient Location: [facility] Current Patient Location: [facility] Accession/Order Number: [id number] Exam Date: 11/29/2023 09:01 Report Date: 11/29/2023 [...] M.D. Signed By:11/29/23 1048 DD/ 1045 TD/TT: Film Technician: us Darwin Dumont DO [facility] Final Result documented in this encounter Visit Diagnoses Not on filedocumented in this encounter Care Teams Foreign Car Mechanic Relationship Specialty Start Date End Date Linda Sheppard DO [address] [facility] [place] [phone] PCP - General Family Medicine 08/06/24 documented as of this encounter
--- OUTSIDE RECORDS SUMMARY | 2024-08-06 15:08 | XMS_ITS | Encounter Summary ---
Author Organization [facility] Address [address] [place] [address] Care Team Providers Care Child Care Team Lead Name Role Phone Linda Altman DO Primary Care Provider [phone] Encounter Details Date Type Department Care Team (Late Contact Info) Description 11/24/2023 Abstract [facility] OB [address], [place] [address] Mark Dumont [facility] Stephanie Martinez, [facility]11 Social History Tobacco Use Types Packs/Day Years Used Date Smoking Tobacco: Never Assessed Comments Yes Sex and Gender Information Value Date Recorded Sex Assigned at Not on file Legal Sex Female 11:10 PM EDT Gender Identity Not on file Sexual Orientation Not on file documented as of this encounter Plan of Treatment Upcoming Encounters Date Type Department Care Team ([facility] Contact Info) Description 08/08/2025 9:00 AM EDT Office Visit [facility] OB [address] [place], [place] [address] Mark Dumont DO [address] Martinez [facility]11 documented as of this encounter Visit Diagnoses Not on filedocumented in this encounter Care Teams Child Care Team Lead Relationship Specialty Start Date End Date Linda Altman DO [address] [place] [phone] PCP - General Family Medicine 08/06/24 documented as of this encounter
--- OUTSIDE RECORDS SUMMARY | 2024-08-06 15:08 | XMS_ITS | Patient Health Record ---
Author Organization [facility] Address [address] [place] [address] Care Team Providers Care Freight Loading Supervisor Name Role Phone Dillan Davies Unavailable [phone] Reason For Referral No Information Social History Tobacco Use: Social History Observation Description Date Details (start date - stop date) Former Smoker NA - NA Smoking History Question Answer Notes Smoking Status Former Smoker Plan Of Treatment No Information Insurance Providers Payer Name Payer Address Payer Phone Subscriber Number Group Number Insured Name Patient Relationship to Insured Coverage Start Date Coverage End Date [place] [address] [place] [address] [id number] REZA MOLINA Spouse - patient is the spouse of the insured Medicaid [employer] [place] [address] [place] [address] [id number] TIA MONROE Self - patient is the insured Medical (General) History Medical History History ICD Code Medication List 1: Metformin 500 mg Medication List 2: Flexeril Medication List 3: Ibuprofen 600 Do you have a CPAP machine?: No Do you have any dental probl ems i.e. Broken, loose, or chipped teeth, absess, gum disease?: Yes Have you been seen by a dentist in the l ast year?: Yes Latex Allergy: No Drug Allergies: : No Bariatric Surgery:: No Have you been in close conta ct with someone who has had MRSA within the last year?: No Have you ever had or presently have MRSA ?: No Are you a healthcare worker?: No
--- OUTSIDE RECORDS SUMMARY | 2024-08-06 15:09 | XMS_ITS | Encounter Summary ---
Author Organization [facility] Address [address] [place] [address] Care Team Providers Care Special Forces Specialist Name Role Phone Linda Sheppard DO Primary Care Provider [phone] Encounter Details Date Type Department Care Team (Late st Contact Info) Description 11/15/2023 Clinisync Result Encounter [facility] External Department Unsolicited Darwin Dumont, DO [address] [place] [phone] Social History Tobacco Use Types Packs/Day Years [...] AM EDT Office Visit [facility] OB [address] [place] [address] Darwin Dumont DO [facility] [place] [address] documented as of this encounter Procedures Procedure Name Priority Date/Time Associated Diagnosis Comments US OB BPP W NON-STRESS 11/15/2023 12:41 PM EDT documented in this encounter Results * US OB BPP W NON-STRESS (11/15/2023 12:41 PM EDT) Anatomical Region Laterality Modality Other 11/15/2023 12:4 1 PM EDT Narrative 11/15/2023 12:44 PM EDT [place] [id number] Ultrasound Report Signed Patient: THUY CORTEZ MR#: [id number] : 1990 Acct:[id number] Age/Sex: 33 / F ADM Date: 11/15/23 Loc: US Attending Dr: Darwin Dumont D.O. Ordering Physician: Darwin Dumont D.O. Date of Service: 11/15/23 Procedure(s): US OB BPP w non-stress Accession Number(s): [id number] cc: LINDA SHEPPARD ; Darwin Dumont D.O. [address] [address] Patient Name: THUY CORTEZ MRN: [id number] date: 1990 Sex: F Assigned Patient Location: US Current Patient Location: Accession/Order Number: [id number] Exam Date: 11/15/2023 08:50 Report Date: 11/15/2023 12:41 At the request of: DARWIN DUMONT Procedure: US OB BPP w non-stress EXAMINATION: US OB BPP w non-stress, US OB BPP w non-stress HISTORY:Monochorionic diamniotic twin O30.039 COMPARISON: Ultrasound OB biophysical TECHNIQUE: Ultrasound biophysical profile was performed in the radiology department. BREATHING MOVEMENTS: 2/2 GROSS BODY MOVEMENTS: 2/2 TONE: 2/2 QUALITATIVE AMNIOTIC FLUID VOLUME: 2/2 PRESENTATION: Breech/Breech HEART RATE: 184/122 AMNIOTIC FLUID VOLUME: Largest pocket 7.7 x 4.3 cm / Largest pocket 5.9 x 8.8 cm GESTATIONAL AGE: 32 weeks 5 days) US/US OB BPP w non-stress IMPRESSION: Total biophysical profile score: Baby A: 8 / Baby B: 8 Electronically authenticated by: DILLAN VALENCIA Date: 11/15/2023 12:41 Dictated By: Dillan Valencia M.D. Signed By: 11/15/23 1244 DD/ 1241 TD/TT: Supervisor Public Message Service: Procedure Note Radiology, Radiologist, - 11/15/2023 [place] [address] Ultrasound Report Signed Patient: THUY CORTEZMR#: [id number] : 1990Acct:[id number] Age/Sex: 33 / FADM Date: 11/15/23 Loc: US Attending Dr: Darwin Dumont D.O. Ordering Physician: Darwin Dumont D.O. Date of Service: 11/15/23 Procedure(s): US OB BPP w non-stress Accession Number(s): [id number] cc: LINDA SHEPPARD ; Darwin Dumont D.O. The [address] [address] Patient Name: THUY CORTEZ MRN: [id number] date: 1990 Sex: F Assigned Patient Location: US Current Patient Location: Accession/Order Number: [id number] Exam Date: 11/15/2023 08:50 Report Date: 11/15/2023 12:41 At the request of: DARWIN DUMONT Procedure: US OB BPP w non-stress EXAMINATION: US OB BPP w non-stress, US OB BPP w non-stress HISTORY:Monochorionic diamniotic twin O30.039 COMPARISON: Ultrasound OB biophysical TECHNIQUE: Ultrasound biophysical profile was performed in the radiology department. BREATHING MOVEMENTS: 2/2 GROSS BODY MOVEMENTS: 2/2 TONE: 2/2 QUALITATIVE AMNIOTIC FLUID VOLUME: 2/2 PRESENTATION: Breech/Breech HEART RATE: 184/122 AMNIOTIC FLUID VOLUME: Largest pocket 7.7 x 4.3 cm / Largest pocket 5.9 x8.8 cm GESTATIONAL AGE: 32 weeks 5 days) US/US OB BPP w non-stress IMPRESSION: Total biophysical profile score: Baby A: 8 / Baby B: 8 Electronically authenticated by: DILLAN VALENCIA Date: 11/15/2023 12:41 Dictated By: Dillan Valencia M.D. Signed By:11/15/23 1244 DD/ 1241 TD/TT: Supervisor Public Message Service: Darwin Dumont DO [facility] Final Result documented in this encounter Visit Diagnoses Not on filedocumented in this encounter Care Teams Special Forces Specialist Relationship Specialty Start Date End Date Linda Sheppard DO [address] [facility] [place] [phone] PCP - General Family Medicine 08/06/24 documented as of this encounter
--- OUTSIDE RECORDS SUMMARY | 2024-08-06 15:09 | XMS_ITS | Encounter Summary ---
Author Organization [facility] Address [address] [place] [address] Care Team Providers Care Lab Rep Name Role Phone Linda Altman Vijaya STEWART Primary Care Provider [phone] Encounter Details Date Type Department Care Team (Latest Contact Info) Description 07/31/2024 Travel Social History Tobacco Use Types Packs/Day Years [...] on file documented as of this encounter Functional Status documented as of this encounter Plan of Treatment Not on file documented as of this encounter Visit Diagnoses Not on filedocumented in this encounter Care Teams Lab Rep Relationship Specialty Start Date End Date Linda Altman DO [address] [place] [phone] PCP - General Family Medicine 09/04/22 documented as of this encounter
--- OUTSIDE RECORDS SUMMARY | 2024-08-06 15:09 | XMS_ITS | Encounter Summary ---
Author Organization [facility] Address [address] [place] [address] Care Team Providers Care Splitting Machine Feeder Name Role Phone Linda Sheppard DO Primary Care Provider [phone] Encounter Details Date Type Department Care Team (Late st Contact Info) Description 11/15/2023 Clinisync Result Encounter [facility] External Department Unsolicited Darwin Dumont, DO [address] [place] [id number] Social History Tobacco Use Types Packs/Day Years [...] 08/08/2025 9:00 AM EDT Office Visit [facility] [address] [place] [phone] Darwin Dumont DO [facility] [place] [address] documented as of this encounter Procedures Procedure Name Priority Date/Time Associated Diagnosis Comments US OB BPP W NON-STRESS 11/15/2023 12:41 PM EDT documented in this encounter Results * US OB BPP W NON-STRESS (11/15/2023 12:41 PM EDT) Anatomical Region Laterality Modality Other 11/15/2023 12:4 1 PM EDT Narrative 11/15/2023 12:44 [place] [address] Ultrasound Report Signed Patient: THUY CORTEZ MR#: [id number] : 1990 Acct:[id number] Age/Sex: 33 / F ADM Date: 11/15/23 Loc: US Attending Dr: Darwin Dumont D.O. Ordering Physician: Darwin Dumont D.O. Date of Service: 11/15/23 Procedure(s): US OB BPP w non-stress Accession Number(s): [id number] cc: LINDA SHEPPARD ; Darwin Dumont D.O. [address] [address] Patient Name: THUY CORTEZ MRN: [id number] date: 1990 Sex: F Assigned Patient Location: US Current Patient Location: Accession/Order Number: [id number] Exam Date: 11/15/2023 08:50 Report Date: 11/15/2023 [...] Signed By: 11/15/23 1244 DD/ 1241 TD/TT: Slip Laster: Procedure Note Radiology, Radiologist, - 11/15/2023 [place] [address] Ultrasound Report Signed Patient: THUY CORTEZMR#: [id number] : 1990Acct:[id number] Age/Sex: 33 / FADM Date: 11/15/23 Loc: US Attending Dr: Darwin Dumont D.O. Ordering Physician: Darwin Dumotn D.O. Date of Service: 11/15/23 Procedure(s): US OB BPP w non-stress Accession Number(s): [id number] cc: LINDA SHEPPARD ; Darwin Dumont D.O. The [address] [address] Patient Name: THUY CORTEZ MRN: [id number] date: 1990 Sex: F Assigned Patient Location: US Current Patient Location: Accession/Order Number: [id number] Exam Date: 11/15/2023 08:50 Report Date: 11/15/2023 [...] M.D. Signed By:11/15/23 1244 DD/ 1241 TD/TT: Slip Laster: Darwin Dumont DO [facility] Final Result documented in this encounter Visit Diagnoses Not on filedocumented in this encounter Care Teams Splitting Machine Feeder Relationship Specialty Start Date End Date Linda Sheppard DO [address] [facility] [place] [phone] PCP - General Family Medicine 08/06/24 documented as of this encounter
--- OUTSIDE RECORDS SUMMARY | 2024-08-06 15:09 | XMS_ITS | Encounter Summary ---
Author Organization [facility] Address [address] [place] [address] Care Team Providers Care Siphon Operator Name Role Phone Linda Altman DO Primary Care Provider [phone] Encounter Details Date Type Department Care Team (Late Contact Info) Description 08/06/2024 Bamboo flowsheet [facility] [address] [address] [place] [address] Mark Dumont [address] [place] [id number] Social History Tobacco Use Types Packs/Day Years Used Date Smoking Tobacco: Never Assessed Comments Unknown Sex and Gender Information Value Date Recorded Sex Assigned at Not on file Legal Sex Female 11:10 PM EDT Gender Identity Not on file Sexual Orientation Not on file documented as of this encounter Plan of Treatment Upcoming Encounters Date Type Department Care Team ([facility] Contact Info) Description 08/08/2025 9:00 AM EDT Office Visit [facility] [address] [place] [place] [address] Mark Dumont [address] [place] [id number] documented as of this encounter Visit Diagnoses Not on filedocumented in this encounter Care Teams Siphon Operator Relationship Specialty Start Date End Date Linda Altman DO [address] [place] [phone] PCP - General Family Medicine 08/06/24 documented as of this encounter
--- OUTSIDE RECORDS SUMMARY | 2024-08-06 15:09 | XMS_ITS | Encounter Summary ---
Author Organization [facility] Address [address] [place] [address] Care Team Providers Care Emu Farmer Name Role Phone Linda Altman DO Primary Care Provider [phone] Encounter Details Date Type Department Care Team (Late Contact Info) Description 09/15/2023 Abstract [facility] [address] [place], [place] [address] Mark Dumont [facility] Stephanie Martinez, [facility] Social History Tobacco Use Types Packs/Day Years Used Date Smoking Tobacco: Never Assessed Comments Yes Sex and Gender Information Value Date Recorded Sex Assigned at Not on file Legal Sex Female 11:10 PM EDT Gender Identity Not on file Sexual Orientation Not on file documented as of this encounter Plan of Treatment Upcoming Encounters Date Type Department Care Team ([facility] Contact Info) Description 08/08/2025 9:00 AM EDT Office Visit [facility] [address] [place], [place] [address] Mark Dumont DO [address] [facility] documented as of this encounter Visit Diagnoses Not on filedocumented in this encounter Care Teams Emu Farmer Relationship Specialty Start Date End Date Linda Altman DO [address] [place] [phone] PCP - General Family Medicine 08/06/24 documented as of this encounter
--- OUTSIDE RECORDS SUMMARY | 2024-08-06 15:09 | XMS_ITS | Encounter Summary ---
Author Organization [facility] Address [address] [place] [address] Care Team Providers Care Repairer Recreational Vehicle Name Role Phone Linda Altman DO Primary Care Provider [phone] Encounter Details Date Type Department Care Team (Late Contact Info) Description 12/20/2023 Abstract [facility] [address] [place], [place] [address] Mark Dumont [facility] Stephanie Martinez, [facility] Social History Tobacco Use Types Packs/Day Years Used Date Smoking Tobacco: Never Assessed Comments No Sex and Gender Information Value Date Recorded Sex Assigned at Not on file Legal Sex Female 11:10 PM EDT Gender Identity Not on file Sexual Orientation Not on file documented as of this encounter Plan of Treatment Upcoming Encounters Date Type Department Care Team ([facility] Contact Info) Description 08/08/2025 9:00 AM EDT Office Visit [facility] [address] [place], [place] [address] Mark Dumont DO [address] [facility] documented as of this encounter Visit Diagnoses Not on filedocumented in this encounter Care Teams Repairer Recreational Vehicle Relationship Specialty Start Date End Date Linda Altman DO [address] [place] [phone] PCP - General Family Medicine 08/06/24 documented as of this encounter
--- OUTSIDE RECORDS SUMMARY | 2024-08-06 15:09 | XMS_ITS | Encounter Summary ---
Author Organization [facility] Address [address] [place] [address] Care Team Providers Care Field Service Representative Name Role Phone Linda Altman DO Primary Care Provider [phone] Encounter Details Date Type Department Care Team (Late Contact Info) Description 10/13/2023 Abstract [facility] OB [address] [place], [place] [address] Mark Dumont [facility] Stephanie Martinez, [facility]11 Social History Tobacco Use Types Packs/Day Years Used Date Smoking Tobacco: Never Assessed Comments Yes Sex and Gender Information Value Date Recorded Sex Assigned at Not on file Legal Sex Female 11:10 PM EDT Gender Identity Not on file Sexual Orientation Not on file documented as of this encounter Plan of Treatment Upcoming Encounters Date Type Department Care Team ([facility] Contact Info) Description 08/08/2025 9:00 AM EDT Office Visit [facility] [address] [place], [place] [address] Mark Dumont DO [address] [facility]11 documented as of this encounter Visit Diagnoses Not on filedocumented in this encounter Care Teams Field Service Representative Relationship Specialty Start Date End Date Linda Altman DO [address] [place] [phone] PCP - General Family Medicine 08/06/24 documented as of this encounter
--- OUTSIDE RECORDS SUMMARY | 2024-08-06 15:09 | XMS_ITS | Encounter Summary ---
Author Organization [facility] Address [address] [place] [address] Care Team Providers Care Softwood Faller Name Role Phone Linda Altman DO Primary Care Provider [phone] Encounter Details Date Type Department Care Team (Late Contact Info) Description 11/18/2023 Abstract [facility] [address] [facility] [place] [place] [address] Edyta Bella LPN [address] [employer] [place] [id number] Social History Tobacco Use Types Packs/Day Years Used Date Smoking Tobacco: Never Assessed Comments Yes Sex and Gender Information Value Date Recorded Sex Assigned at Not on file Legal Sex Female 11:10 PM EDT Gender Identity Not on file Sexual Orientation Not on file documented as of this encounter Plan of Treatment Upcoming Encounters Date Type Department Care Team ([facility] Contact Info) Description 08/08/2025 9:00 AM EDT Office Visit [facility] [address] [facility] [place] [address] [place], [place] [address] Mark Dumont DO [address] [place] [address] documented as of this encounter Visit Diagnoses Not on filedocumented in this encounter Care Teams Softwood Faller Relationship Specialty Start Date End Date Linda Altman DO [address] [place] [phone] PCP - General Family Medicine 08/06/24 documented as of this encounter
--- OUTSIDE RECORDS SUMMARY | 2024-08-06 15:09 | XMS_ITS | Encounter Summary ---
Author Organization [facility] Address [address] [place] [address] Care Team Providers Care Arcade Attendant Name Role Phone Linda Altman DO Primary Care Provider [phone] Encounter Details Date Type Department Care Team (Late Contact Info) Description 09/20/2023 Abstract [facility] OB [address] [place] [address] Kareen Vega LPN [address] [employer] [facility] Les [facility] Social History Tobacco Use Types Packs/Day [...] 08/08/2025 9:00 AM EDT Office Visit [facility] OB [address] [place] [address] Mark Dumont DO [address] [place] [address] documented as of this encounter Visit Diagnoses Not on filedocumented in this encounter Care Teams Arcade Attendant Relationship Specialty Start Date End Date Linda Altman DO [address] [place] [phone] PCP - General Family Medicine 08/06/24 documented as of this encounter
--- OUTSIDE RECORDS SUMMARY | 2024-08-06 15:09 | XMS_ITS | Encounter Summary ---
Author Organization [facility] Address [address] [place] [address] Care Team Providers Care Rn Hemodialysis Name Role Phone Linda Altman DO Primary Care Provider [phone] Encounter Details Date Type Department Care Team (Late Contact Info) Description 09/20/2023 Abstract [facility] OB [address] [place] [address] Kareen Vega LPN 102 [employer] [facility] [place] [facility] Social History Tobacco Use Types Packs/Day Years [...] 9:00 AM EDT Office Visit [facility] OB [address] [place] [address] Mark Dumont DO [address] [employer] [address] [place] [address] documented as of this encounter Visit Diagnoses Not on filedocumented in this encounter Care Teams Rn Hemodialysis Relationship Specialty Start Date End Date Linda Altman DO [address] [place] [phone] PCP - General Family Medicine 08/06/24 documented as of this encounter
--- OUTSIDE RECORDS SUMMARY | 2024-08-06 15:09 | XMS_ITS | Encounter Summary ---
Author Organization [facility] Address [address] [place] [address] Care Team Providers Care Channel Marketing Program Manager Name Role Phone Linda Altman DO Primary Care Provider [phone] Encounter Details Date Type Department Care Team (Late Contact Info) Description 09/20/2023 Abstract [facility] OB [address] [place] [address] Kareen Vega LPN [address] [facility] Les [place] [facility]11 Social History Tobacco Use Types Packs/Day [...] Visit [facility] OB [address] [place] [address] Mark Dumont DO [address] [place] [address] documented as of this encounter Visit Diagnoses Not on filedocumented in this encounter Care Teams Channel Marketing Program Manager Relationship Specialty Start Date End Date Linda Altman DO [address] [place] [phone] PCP - General Family Medicine 08/06/24 documented as of this encounter
--- OUTSIDE RECORDS SUMMARY | 2024-08-06 15:09 | XMS_ITS | Encounter Summary ---
Author Organization [facility] Address [address] [place] [address] Care Team Providers Care Jet Wiper Name Role Phone Linda Altman DO Primary Care Provider [phone] Encounter Details Date Type Department Care Team (Late Contact Info) Description 12/21/2023 Abstract [facility] OB [address] [place], [place] [address] Mark Dumont [facility] Stephanie Martinez, [facility]11 Social History Tobacco Use Types Packs/Day Years Used Date Smoking Tobacco: Never Assessed Comments No Sex and Gender Information Value Date Recorded Sex Assigned at Not on file Legal Sex Female 11:10 PM EDT Gender Identity Not on file Sexual Orientation Not on file documented as of this encounter Plan of Treatment Upcoming Encounters Date Type Department Care Team ([facility] Contact Info) Description 08/08/2025 9:00 AM EDT Office Visit [facility] [address] [place] [address] Mark Dumont DO [address] [facility] documented as of this encounter Visit Diagnoses Not on filedocumented in this encounter Care Teams Jet Wiper Relationship Specialty Start Date End Date Linda Altman DO [address] [place] [phone] PCP - General Family Medicine 08/06/24 documented as of this encounter
--- OUTSIDE RECORDS SUMMARY | 2024-08-06 15:09 | XMS_ITS | Encounter Summary ---
Author Organization [facility] Address [address] [place] [address] Care Team Providers Care Metal Coater Name Role Phone Linda Sheppard DO Primary Care Provider [phone] Encounter Details Date Type Department Care Team (Late st Contact Info) Description 09/14/2023 Clinisync Result Encounter [facility] External Department Unsolicited Mark Dumont, DO [address] [place] [id number] Social History Tobacco Use Types Packs/Day Years [...] [facility] OB [address] [place] [phone] Mark Dumont, DO [address] [place] [address] documented as of this encounter Procedures Procedure Name Priority Date/Time Associated Diagnosis Comments CA ECHO DOPPLER COMPLETE 09/14/2023 2:01 PM EDT documented in this encounter Results * CA ECHO DOPPLER COMPLETE (09/14/2023 2:01 PM EDT) Anatomical Region Laterality Modality Other 09/14/2023 2:01 PM EDT Narrative 09/14/2023 2:02 [place] [address] Cardiology Report Signed Patient: THUY CORTEZ MR#: [id number] : 1990 Acct:[id number] Age/Sex: 33 / F ADM Date: 09/14/23 Loc: CARD Attending Dr: Mark Dumont D.O. Ordering Physician: Mark Dumont D.O. Date of Service: 09/14/23 Procedure(s): CA echo doppler complete Accession Number(s): [id number] cc: LINDA SHEPPARD ; Mark Dumont D.O. Patient Name: THUY CORTEZ MR#: [id number] : 1990 Exam Date: 09/14/2023 Ordering Doctor: DR Mark Dumont . ECHOCARDIOGRAM REPORT PROCEDURE: CA ECHO DOPPLER COMPLETE INDICATIONS: SOB, Rapid heartbeat COMPARISON: None. DESCRIPTION: COMPLETE ECHOCARDIOGRAM Real-time transthoracic echocardiography with 2D, M-mode, spectral and color flow Doppler performed. QUALITY: Technical quality was good. LEFT VENTRICLE: Normal chamber size. Normal left ventricular wall thickness. Global left ventricular systolic function is normal. LV EF: Estimated left ventricular ejection fraction is 65%. DIASTOLIC: Normal diastolic function. ATRIAL SEPTUM: LEFT ATRIUM: Normal chamber size. RIGHT ATRIUM: Normal chamber size. RIGHT VENTRICLE: Normal chamber size. Normal right ventricular systolic function. TRICUSPID VALVE: Normal mobility and thickness. No stenosis with trivial regurgitation. Unable to assess right-sided pressures due to lack of measurable tricuspid regurgitation. MITRAL VALVE: Normal mobility and thickness. No evidence of mitral valve stenosis. No mitral regurgitation. AORTIC VALVE: Normal trileaflet appearance. No visible sclerosis. Normal leaflet mobility. No evidence of aortic valve stenosis. No aortic regurgitation. AORTIC ROOT: Normal diameter and appearance. PULMONIC VALVE: Normal thickness and mobility. No stenosis. Trivial regurgitation. PERICARDIUM: No evidence of pericardial effusion. IVC: Collapses with inspirations. Normal size. PLEURA: CONCLUSION: 1. Normal ventricular size and function. LVEF is 65%. 2. No significant valvular dysfunction. 3. Unable to assess right-sided pressures due to lack of measurable tricuspid regurgitation. 4. No pericardial effusion. Adult Echocardiography Procedure Report Left Ventricle LVEDD (3.7 - 5.6 cm): 4.47 cm LVESD (2.2 - 4.0 cm): 2.98 cm LVIVS thickness (0.6 - 1.2 cm): 0.88 cm LVPW thickness (0.5 - 1.0 cm): 0.76 cm e': 0.16 m/s E - e': 4.44 LVOT Max Gradient: 3.76 mm[Hg], 3.76 mm[Hg], 3.76 mm[Hg] LVOT Area (cm2): 0.97 m/s Peak Velocity (LVOT): 0.97 m/s, 0.97 m/s, 0.97 m/s Mean Velocity (LVOT): 0.73 m/s LVOT Diameter 2.15 cm Left Ventricular Ejection Fraction: 65 % Left Atrium LA Volume Index (2D A2C): 19.19 ml/m2 Left Atrium Systolic Dimension: 3.48 cm Mitral Valve MV E to A Ratio: 0.86 Mitral Valve A-Wave Peak Velocity: 0.83 m/s Mitral Valve E-Wave Peak Velocity: 0.71 m/s Right Ventricle RV Internal Diastolic Dimension: 3.14 cm Aorta AO Root Diam: 2.90 cm Ascending Ao Diam: 2.66 cm Aortic Valve AoV Area (Peak Eliazar): 2.35 cm2, 2.38 cm2, 2.33 cm2 AoV Area (VTI): 2.23 cm2, 2.27 cm2, 2.27 cm2 Peak Velocity(Antegrade Flow): 1.47 m/s, 1.51 m/s Peak Gradient(Antegrade Flow): 8.69 mm[Hg], 9.07 mm[Hg] Mean Velocity(Antegrade Flow): 1.03 m/s, 1.02 m/s Mean Gradient(Antegrade Flow): 4.73 mm[Hg], 4.63 mm[Hg] Velocity Time Integral: 25.04 cm, 25.19 cm Tricuspid Valve Peak Velocity (Regurgitant Flow): 1.91 m/s Pulmonic Valve Mean Gradient: 3.69 mm[Hg], 4.36 mm[Hg] Mean Velocity: 0.91 m/s, 0.99 m/s Peak Velocity: 1.26 m/s, 1.23 m/s Peak Gradient: 5.59 mm[Hg], 7.18 mm[Hg], 6.07 mm[Hg] Right Atrium Right Atrium Systolic Pressure: 46.62 ml, 46.62 ml Dictated by: Brice Prince M.D. on 09/14/2023 at 13:57 Approved by: Brice Prince M.D. on 09/14/2023 at 14:01 Dictated By: BRICE PRINCE Signed By: 09/14/23 1402 DD/ 1401 TD/TT: Screening Tech: Procedure Note Radiology, Radiologist, MD - 09/14/2023 [place] [address] Cardiology Report Signed Patient: THUY CROTEZMR#: [id number] : 1990Acct:[id number] Age/Sex: 33 / FADM Date: 09/14/23 Loc: CARD Attending Dr: Mark Dumont D.O. Ordering Physician: Mark Dumont D.O. Date of Service: 09/14/23 Procedure(s): CA echo doppler complete Accession Number(s): [id number] cc: LINDA SHEPPARD ; Mark Dumont D.O. Patient Name: THUY CORTEZ MR#: [id number] : 1990 Exam Date: 09/14/2023 Ordering Doctor: DR Mark Dumont . ECHOCARDIOGRAM REPORT PROCEDURE: CA ECHO DOPPLER COMPLETE INDICATIONS: SOB, Rapid heartbeat COMPARISON: None. DESCRIPTION: COMPLETE ECHOCARDIOGRAM Real-time transthoracic echocardiography with 2D, M-mode, spectral and color flow Dopplerperformed. QUALITY: Technical quality was good. LEFT VENTRICLE: Normal chamber size. Normal left ventricular wall thickness. Global left ventricular systolic function is normal. LV EF: Estimated left ventricular ejection fraction is 65%. DIASTOLIC: Normal diastolic function. ATRIAL SEPTUM: LEFT ATRIUM: Normal chamber size. RIGHT ATRIUM: Normal chamber size. RIGHT VENTRICLE: Normal chamber size. Normal right ventricularsystolic function. TRICUSPID VALVE: Normal mobility and thickness. No stenosis withtrivial regurgitation. Unable to assess right-sided pressures due to lack of measurable tricuspid regurgitation. MITRAL VALVE: Normal mobility and thickness. No evidence of mitralvalve stenosis. No mitral regurgitation. AORTIC VALVE: Normal trileaflet appearance. No visible sclerosis.Normal leaflet mobility. No evidence of aortic valve stenosis. No aortic regurgitation. AORTIC ROOT: Normal diameter and appearance. PULMONIC VALVE: Normal thickness and mobility. No stenosis. Trivial regurgitation. PERICARDIUM: No evidence of pericardial effusion. IVC: Collapses with inspirations. Normal size. PLEURA: CONCLUSION: 1. Normal ventricular size and function. LVEF is 65%. 2. No significant valvular dysfunction. 3. Unable to assess right-sided pressures due to lack of measurabletricuspid regurgitation. 4. No pericardial effusion. Adult Echocardiography Procedure Report Left Ventricle LVEDD (3.7 - 5.6 cm): 4.47 cm LVESD (2.2 - 4.0 cm): 2.98 cm LVIVS thickness (0.6 - 1.2 cm): 0.88 cm LVPW thickness (0.5 - 1.0 cm): 0.76 cm e': 0.16 m/s E - e': 4.44 LVOT Max Gradient: 3.76 mm[Hg], 3.76 mm[Hg], 3.76 mm[Hg] LVOT Area (cm2): 0.97 m/s Peak Velocity (LVOT): 0.97 m/s, 0.97 m/s, 0.97 m/s Mean Velocity (LVOT): 0.73 m/s LVOT Diameter 2.15 cm Left Ventricular Ejection Fraction: 65 % Left Atrium LA Volume Index (2D A2C): 19.19 ml/m2 Left Atrium Systolic Dimension: 3.48 cm Mitral Valve MV E to A Ratio: 0.86 Mitral Valve A-Wave Peak Velocity: 0.83 m/s Mitral Valve E-Wave Peak Velocity: 0.71 m/s Right Ventricle RV Internal Diastolic Dimension: 3.14 cm Aorta AO Root Diam: 2.90 cm Ascending Ao Diam: 2.66 cm Aortic Valve AoV Area (Peak Eliazar): 2.35 cm2, 2.38 cm2, 2.33 cm2 AoV Area (VTI): 2.23 cm2, 2.27 cm2, 2.27 cm2 Peak Velocity(Antegrade Flow): 1.47 m/s, 1.51 m/s Peak Gradient(Antegrade Flow): 8.69 mm[Hg], 9.07 mm[Hg] Mean Velocity(Antegrade Flow): 1.03 m/s, 1.02 m/s Mean Gradient(Antegrade Flow): 4.73 mm[Hg], 4.63 mm[Hg] Velocity Time Integral: 25.04 cm, 25.19 cm Tricuspid Valve Peak Velocity (Regurgitant Flow): 1.91 m/s Pulmonic Valve Mean Gradient: 3.69 mm[Hg], 4.36 mm[Hg] Mean Velocity: 0.91 m/s, 0.99 m/s Peak Velocity: 1.26 m/s, 1.23 m/s Peak Gradient: 5.59 mm[Hg], 7.18 mm[Hg], 6.07 mm[Hg] Right Atrium Right Atrium Systolic Pressure: 46.62 ml, 46.62 ml Dictated by: Brice Prince M.D. on 09/14/2023 at 13:57 Approved by: Brice Prince M.D. on 09/14/2023 at 14:01 Dictated By: BRICE PRINCE Signed By:09/14/23 1402 DD/ 1401 TD/TT: [facility] Final Result documented in this encounter Visit Diagnoses Not on filedocumented in this encounter Care Teams Metal Coater Relationship Specialty Start Date End Date Linda Sheppard DO [address] [place] [phone] PCP - General Family Medicine 08/06/24 documented as of this encounter
--- OUTSIDE RECORDS SUMMARY | 2024-08-06 15:09 | XMS_ITS | Encounter Summary ---
Author Organization [facility] Address [address] [place] [address] Care Team Providers Care Breaking Machine Operator Name Role Phone Linda Altman Vijaya STEWART Primary Care Provider [phone] Encounter Details Date Type Department Care Team (Latest Contact Info) Description 07/29/2024 Travel Social History Tobacco Use Types Packs/Day [...] on filedocumented in this encounter Care Teams Breaking Machine Operator Relationship Specialty Start Date End Date Linda Altman DO [address] [place] [phone] PCP - General Family Medicine 09/04/22 documented as of this encounter
--- OUTSIDE RECORDS SUMMARY | 2024-08-06 15:09 | XMS_ITS | Encounter Summary ---
Author Organization [facility] Address [address] [place] [address] Care Team Providers Care Kaitara Taraka Name Role Phone Linda Sheppard DO Primary Care Provider [phone] Encounter Details Date Type Department Care Team (Late st Contact Info) Description 10/12/2023 Clinisync Result Encounter [facility] External Department Unsolicited Darwin Dumont, DO [address] [place] [phone] Social History Tobacco Use Types Packs/Day Years [...] 08/08/2025 9:00 AM EDT Office Visit [facility] OB [address] [place], [place] [phone] Darwin Dumont DO [address] [place] [address] documented as of this encounter Procedures Procedure Name Priority Date/Time Associated Diagnosis Comments US AMNIOTIC FLUID VOLUME 10/12/2023 10:02 AM EDT documented in this encounter Results * US AMNIOTIC FLUID VOLUME (10/12/2023 10:02 AM EDT) Anatomical Region Laterality Modality Radiographic Alice ging 10/12/2023 10:0 2 AM EDT Narrative 10/12/2023 10:05 [place] [address] Ultrasound Report Signed Patient: THUY CORTEZ MR#: [id number] : 1990 Acct:[id number] Age/Sex: 33 / F ADM Date: Loc: [facility] 254-[address]: Darwin Dumont D.O. Ordering Physician: Darwin Dumont D.O. Date of Service: 10/12/23 Procedure(s): US OB amniotic fluid vol Accession Number(s): [id number] cc: LINDA SHEPPARD ; Darwin Dumont D.O. [place] [address] Patient Name: THUY CORTEZ MRN: [id number] date: 1990 Sex: F Assigned Patient Location: [facility] Current Patient Location: [facility] Accession/Order Number: [id number] Exam Date: 10/12/2023 08:50 Report Date: 10/12/2023 10:02 At the request of: DARWIN DUMONT Procedure: US OB amniotic fluid vol EXAMINATION: US OB amniotic fluid vol, US OB cervical length HISTORY: SROM?/Twin COMPARISON: Ultrasound OB placenta 08/05/2023 TECHNIQUE: Transabdominal and transvaginal sonographic examination for cervical length. FINDINGS: CERVIX LENGTH: 4.6 cm, closed. POSITION: Transverse with head to left / Breech-oblique with head to right HEART RATE: 141 bpm / 130 bpm AMNIOTIC FLUID: Deepest pocket 4.7 x 6.5 cm / 11.5 x 8.7 cm Age by EDC: 27 weeks 6 days GEM by EDC: 01/05/2024 US/US OB amniotic fluid vol IMPRESSION: 1. Live twin intrauterine . 2. Normal amniotic fluid volume with deepest pocket is detailed above. 3. Closed cervix 4.6 cm in length. Electronically authenticated by: DILLAN VALENCIA Date: 10/12/2023 10:02 Dictated By: Dillan Valencia M.D. Signed By: 10/12/23 1005 DD/ 1002 TD/TT: Software Licensing Specialist: Procedure Note Radiology, Radiologist, - 10/12/2023 [place] [address] Ultrasound Report Signed Patient: THUY CORTEZMR#: [id number] : 1990Acct:[id number] Age/Sex: 33 / FADM Date: Loc: [facility] 254-[address]: Darwin Dumont D.O. Ordering Physician: Darwin Dumont D.O. Date of Service: 10/12/23 Procedure(s): US OB amniotic fluid vol Accession Number(s): [id number] cc: LINDA SHEPPARD ; Darwin Dumont D.O. [place] [address] Patient Name: THUY CORTEZ MRN: [id number] date: 1990 Sex: F Assigned Patient Location: [facility] Current Patient Location: [facility] Accession/Order Number: [id number] Exam Date: 10/12/2023 08:50 Report Date: 10/12/2023 10:02 At the request of: DARWIN DUMONT Procedure: US OB amniotic fluid vol EXAMINATION: US OB amniotic fluid vol, US OB cervical length HISTORY: SROM?/Twin COMPARISON: Ultrasound OB placenta 08/05/2023 TECHNIQUE: Transabdominal and transvaginal sonographic examination for cervical length. FINDINGS: CERVIX LENGTH: 4.6 cm, closed. POSITION: Transverse with head to left / Breech-oblique with head to right HEART RATE: 141 bpm / 130 bpm AMNIOTIC FLUID: Deepest pocket 4.7 x 6.5 cm / 11.5 x 8.7 cm Age by EDC: 27 weeks 6 days GEM by EDC: 01/05/2024 US/US OB amniotic fluid vol IMPRESSION: 1. Live twin intrauterine . 2. Normal amniotic fluid volume with deepest pocket is detailed above. 3. Closed cervix 4.6 cm in length. Electronically authenticated by: DILLAN VALENCIA Date: 10/12/2023 10:02 Dictated By: Dillan Valencia M.D. Signed By:10/12/23 1005 DD/ 1002 TD/TT: Software Licensing Specialist: us Darwin Dumont DO IMG XR PROCEDURES Final Result documented in this encounter Visit Diagnoses Not on filedocumented in this encounter Care Teams Kaitara Taraka Relationship Specialty Start Date End Date Linda Sheppard DO [address] [facility] [place] [address] PCP - General Family Medicine 08/06/24 documented as of this encounter
--- OUTSIDE RECORDS SUMMARY | 2024-08-06 15:09 | XMS_ITS | Clinical Summary ---
Author Organization [facility] Address [address] [place] [address] Care Team Providers Care Esthetician/Skin Therapist Name Role Phone Linda Altman Primary Care Provider [phone] Allergies No known active allergies Medications MV-Min-Fe Fum-FA-DHA ( 1 PO) Take 1 each by mouth Daily Active ibuprofen 800 MG tablet Take 800 mg by mouth every 8 (eight) hours 12/18/2023 Active fluconazole (Diflucan) 150 MG tabletIndication s:Vaginal discharge,Yeast infection Take 1 tablet (150 mg) by mouth every 3rd (third) day for 2 doses 2 tablet 1 08/06/2024 5 Active Active Problems Problem Noted Date Diagnosed Date Post-operative state 01/30/2024 state 01/30/2024 Twin gestation in first trimester 06/21/2023 Nausea 06/21/2023 11 weeks gestation of 06/21/2023 Encounters Date Type Department Care Team Description 08/06/2024 9:00 AM EDT Office Visit [facility] OB [address] [place] [address] Mark Dumont DO Well woman exam with routine gynecological exam; Vaginal discharge; Yeast infection 08/06/2024 Bamboo flowsheet [facility] OB [address] [place] [phone] Mark Dumont DO from Last 3 Months Social History Tobacco Use Types Packs/Day Years Used Date Smoking Tobacco: Never Assessed Comments Unknown Sex and Gender Information Value Date Recorded Sex Assigned at Not on file Legal Sex Female 11:10 PM EDT Gender Identity Not on file Sexual Orientation Not on file Last Filed Vital Signs Vital Sign Reading Time Taken Comments Blood Pressure 120/70 08/06/2024 9:30 AM EDT Pulse - - Temperature - - Respiratory Rate - - Oxygen Saturation - - Inhaled Oxygen Concentration - - Weight 105 kg (232 lb 4 oz) 08/06/2024 9:30 AM E DT Height 162.6 cm (5' 4 ) 05/20/2023 10:52 AM EDT Body Mass Index 39.87 05/20/2023 10:52 AM EDT Plan of Treatment Upcoming Encounters Date Type Department Care Team (Late st Contact Info) Description 08/08/2025 9:00 AM EDT Office Visit [facility] OB [address] [place] [phone] Mark Dumont DO [address], [place] [phone] Insurance [employer] Care Teams Esthetician/Skin Therapist Relationship Specialty Start Date End Date Linda Altman DO [address] [place] [address] PCP - General Family Medicine 08/06/24
--- OUTSIDE RECORDS SUMMARY | 2024-08-06 15:09 | XMS_ITS | Encounter Summary ---
Author Organization [facility] Address [address] [place] [address] Care Team Providers Care Housing Quality Standard Inspector Name Role Phone Linda Altman DO Primary Care Provider [phone] Encounter Details Date Type Department Care Team (Late Contact Info) Description 10/14/2023 Abstract [facility] OB [address] [place], [place] [address] Mark Dumont [facility] [address], [facility] Social History Tobacco Use Types Packs/Day Years Used Date Smoking Tobacco: Never Assessed Comments Yes Sex and Gender Information Value Date Recorded Sex Assigned at Not on file Legal Sex Female 11:10 PM EDT Gender Identity Not on file Sexual Orientation Not on file documented as of this encounter Plan of Treatment Upcoming Encounters Date Type Department Care Team ([facility] Contact Info) Description 08/08/2025 9:00 AM EDT Office Visit [facility] OB [address] [place], [place] [address] Mark Dumont DO [address] [facility] documented as of this encounter Visit Diagnoses Not on filedocumented in this encounter Care Teams Housing Quality Standard Inspector Relationship Specialty Start Date End Date Linda Altman DO [address] [place] [phone] PCP - General Family Medicine 08/06/24 documented as of this encounter
--- OUTSIDE RECORDS SUMMARY | 2024-08-06 15:09 | XMS_ITS | Encounter Summary ---
Author Organization [facility] Address [address] [place] [address] Care Team Providers Care Master Automotive Technician Name Role Phone Linda Altman DO Primary Care Provider [phone] Encounter Details Date Type Department Care Team (Late st Contact Info) Description 09/14/2023 Clinisync Result Encounter [facility] External Department Unsolicited Darwin Dumont, DO [address] [place] [id number] Social History Tobacco Use Types Packs/Day Years [...] [facility] OB [address] [place], [place] [phone] Darwin Dumont DO [address] [place] [address] documented as of this encounter Procedures Procedure Name Priority Date/Time Associated Diagnosis Comments ECG 12-LEAD 09/14/2023 9:42 AM EDT documented in this encounter Results * ECG 12-LEAD (09/14/2023 9:42 AM EDT) Anatomical Region Laterality Modality Other 09/14/2023 9:42 AM EDT Narrative 09/14/2023 6:36 PM EDT [address] [address] Electrocardiograph Report Signed Patient: THUY CORTEZ MR#: [id number] : 1990 Acct:[id number] Age/Sex: 33 / F ADM Date: 09/14/23 Loc: CARD Attending Dr: Darwin Dumont D.O. Ordering Physician: Darwin Dumont D.O. Date of Service: 09/14/23 Procedure(s): ECG 12 lead Accession Number(s): [id number] cc: [facility] Test Date: 2023-09-14 Pat Name: THUY CORTEZ Department: Room: - Gender: Female Evaluation Manager: : 1990 Requested By: DARWIN DUMONT Order Number: [id number] Reading MD: ADAM LYNN Measurements Intervals [place] Rate: 104 P: 19 MS: 178 QRS: 60 QRSD: 84 T: 26 QT: 327 QTc: 431 Interpretive Statements SINUS TACHYCARDIA ABNORMAL RHYTHM ECG No previous ECG available for comparison Electronically Signed On 09-14-2023 18:35:53 EDT by ADAM LYNN Dictated By: Adam Lynn D.O. Signed By: 09/14/23183509/14/231835 DD/ 0942 TD/TT: Project Admin: Procedure Note Radiology, Radiologist, MD - 09/14/[address] [address] Electrocardiograph Report Signed Patient: THUY CORETZMR#: [id number] : 1990Acct:[id number] Age/Sex: 33 / FADM Date: 09/14/23 Loc: CARD Attending Dr: Darwin Dumont D.O. Ordering Physician: Darwin Dumont D.O. Date of Service: 09/14/23 Procedure(s): ECG 12 lead Accession Number(s): [id number] cc: [facility] Test Date: 2023-09-14 Pat Name: THUY CORTEZ Department: Room: - Gender: Female Evaluation Manager: : 1990 Requested By: DARWIN DUMONT Order Number: [id number] Reading MD: ADAM LYNN Measurements Intervals [place] Rate: 104 P: 19 MS: 178 QRS: 60 QRSD: 84 T: 26 QT: 327 QTc: 431 Interpretive Statements SINUS TACHYCARDIA ABNORMAL RHYTHM ECG No previous ECG available for comparison Electronically Signed On 09-14-2023 18:35:53 EDT by ADAM LYNN Dictated By: Adam Lynn D.O. Signed By:09/14/23183509/14/231835 DD/ 1 TD/TT: Project Admin: us Darwin Dumont DO [facility] Final Result documented in this encounter Visit Diagnoses Not on filedocumented in this encounter Care Teams Master Automotive Technician Relationship Specialty Start Date End Date Linda Altman DO [address] [place] [phone] PCP - General Family Medicine 08/06/24 documented as of this encounter
--- OUTSIDE RECORDS SUMMARY | 2024-08-06 15:09 | XMS_ITS | Encounter Summary ---
Author Organization [facility] Address [address] [place] [address] Care Team Providers Care Avionics Electronics Technician Name Role Phone Linda Sheppard DO Primary Care Provider [phone] Encounter Details Date Type Department Care Team (Late st Contact Info) Description 10/12/2023 Clinisync Result Encounter [facility] External Department Unsolicited Darwin Dumont, DO [address] [place] [id number] Social History Tobacco Use Types Packs/Day Years [...] 08/08/2025 9:00 AM EDT Office Visit [facility] OB [address], [place] [phone] Darwin Dumont DO [facility] [place] [address] documented as of this encounter Procedures Procedure Name Priority Date/Time Associated Diagnosis Comments US OB CERVICAL LENGTH 10/12/2023 10:02 AM EDT documented in this encounter Results * US OB CERVICAL LENGTH (10/12/2023 10:02 AM EDT) Anatomical Region Laterality Modality Other 10/12/2023 10:0 2 AM EDT Narrative 10/12/2023 10:05 [place] [address] Ultrasound Report Signed Patient: THUY CORTEZ MR#: [id number] : 1990 Acct:[id number] Age/Sex: 33 / F ADM Date: Loc: [facility] 254-[address]: Darwin Dumnot D.O. Ordering Physician: Darwin Dumont D.O. Date of Service: 10/12/23 Procedure(s): US OB cervical length Accession Number(s): [id number] cc: LINDA SHEPPARD ; Darwin Dumont D.O. [place] [address] Patient Name: THUY CORTEZ MRN: [id number] date: 1990 Sex: F Assigned Patient Location: [facility] Current Patient Location: [facility] Accession/Order Number: [id number] Exam Date: 10/12/2023 08:50 Report Date: 10/12/2023 10:02 At the request of: DARWIN DUMONT Procedure: US OB cervical length EXAMINATION: US OB amniotic fluid vol, US [...] days GEM by EDC: 01/05/2024 US/US OB cervical length IMPRESSION: 1. Live twin intrauterine . 2. Normal amniotic fluid volume with deepest pocket is detailed above. 3. Closed cervix 4.6 cm in length. Electronically authenticated by: DILLAN VALENCIA Date: 10/12/2023 10:02 Dictated By: Dillan Valencia M.D. Signed By: 10/12/23 1005 DD/ 1002 TD/TT: Platform Material Handler Manager: Procedure Note Radiology, Radiologist, MD - 10/12/2023 [place] [address] Ultrasound Report Signed Patient: THUY CORTEZMR#: [id number] : 1990Acct:[id number] Age/Sex: 33 / FADM Date: Loc: [facility] 254-[address]: Darwin Dumont D.O. Ordering Physician: Darwin Dumont D.O. Date of Service: 10/12/23 Procedure(s): US OB cervical length Accession Number(s): [id number] cc: LINDA SHEPPARD ; Darwin Dumont D.O. The [place] [id number] Patient Name: THUY CORTEZ MRN: [id number] date: 1990 Sex: F Assigned Patient Location: [facility] Current Patient Location: [facility] Accession/Order Number: [id number] Exam Date: 10/12/2023 08:50 Report Date: 10/12/2023 10:02 At the request of: DARWIN DUMONT Procedure: US OB cervical length EXAMINATION: US OB amniotic fluid vol, US [...] days GEM by EDC: 01/05/2024 US/US OB cervical length IMPRESSION: 1. Live twin intrauterine . 2. Normal amniotic fluid volume with deepest pocket is detailed above. 3. Closed cervix 4.6 cm in length. Electronically authenticated by: DILLAN VALENCIA Date: 10/12/2023 10:02 Dictated By: Dillan Valencia M.D. Signed By:10/12/23 1005 DD/ 1002 TD/TT: Platform Material Handler Manager: us Darwin Dumont DO [facility] Final Result documented in this encounter Visit Diagnoses Not on filedocumented in this encounter Care Teams Avionics Electronics Technician Relationship Specialty Start Date End Date Linda Sheppard DO [address] [place] [phone] PCP - General Family Medicine 08/06/24 documented as of this encounter
--- OUTSIDE RECORDS SUMMARY | 2024-08-06 15:09 | XMS_ITS | Encounter Summary ---
Author Organization [facility] Address [address] [place] [address] Care Team Providers Care Putty And Caulking Supervisor Name Role Phone Linda Altman DO Primary Care Provider [phone] Encounter Details Date Type Department Care Team (Late Contact Info) Description 08/24/2023 Abstract [facility] OB [address], [place] [address] Mark Dumont [facility] Stephanie [place], [id number] Social History Tobacco Use Types Packs/Day Years Used Date Smoking Tobacco: Never Assessed Comments Yes Sex and Gender Information Value Date Recorded Sex Assigned at Not on file Legal Sex Female 11:10 PM EDT Gender Identity Not on file Sexual Orientation Not on file documented as of this encounter Plan of Treatment Upcoming Encounters Date Type Department Care Team ([facility] Contact Info) Description 08/08/2025 9:00 AM EDT Office Visit [facility] OB [address], [place] [address] Mark Dumont DO [address] [id number] documented as of this encounter Visit Diagnoses Not on filedocumented in this encounter Care Teams Putty And Caulking Supervisor Relationship Specialty Start Date End Date Linda Altman DO [address] [place] [phone] PCP - General Family Medicine 08/06/24 documented as of this encounter
--- OUTSIDE RECORDS SUMMARY | 2024-08-06 15:09 | XMS_ITS | Encounter Summary ---
Author Organization [facility] Address [address] [place] [address] Care Team Providers Care Back Up Machine Operator Name Role Phone Linda Sheppard DO Primary Care Provider [phone] Encounter Details Date Type Department Care Team (Late st Contact Info) Description 05/20/2023 Clinisync Result Encounter [facility] External Department Unsolicited Darwin Dumont, DO [address] [place] [id number] Social History Tobacco Use Types Packs/Day Years [...] AM EDT Office Visit [facility] OB [address], [place] [phone] Darwin Dumont DO [facility] [place] [address] documented as of this encounter Procedures Procedure Name Priority Date/Time Associated Diagnosis Comments US OB TRANSVAGINAL 05/20/2023 10 :43 AM EDT documented in this encounter Results * US OB TRANSVAGINAL (05/20/2023 10:43 AM EDT) Anatomical Region Laterality Modality Other 05/20/2023 10:4 3 AM EDT Narrative 05/20/2023 10:45 [place] [address] Ultrasound Report Signed Patient: THUY CORTEZ MR#: [id number] : 1990 Acct:[id number] Age/Sex: 33 / F ADM Date: 05/20/23 Loc: [facility] Attending Dr: Darwin Dumont D.O. Ordering Physician: Darwin Dumont D.O. Date of Service: 05/20/23 Procedure(s): US OB transvaginal Accession Number(s): [id number] cc: LINDA SHEPPARD ; Darwin Dumont D.O. [place] [id number] Patient Name: THUY CORTEZ MRN: [id number] date: 1990 Sex: F Assigned [facility] Accession/Order Number: [id number] Exam Date: 05/20/2023 09:25 Report Date: 05/20/2023 10:43 At the request of: DARWIN DUMONT Procedure: US OB transvaginal EXAMINATION: US OB transvaginal HISTORY: Missed menses COMPARISON: No relevant comparison available. FINDINGS: GESTATIONAL SAC: Present YOLK SAC: Present x2 POLE: Present x2 CARDIAC: Present x2 UTERUS: Normal size and appearance. OVARIES: Right: Normal. Left: Not seen. CERVIX: 5.0 cm in length and closed. CUL-DE-SAC: Normal. OTHER: None. AGE BY LMP: 8 weeks 3 days GEM BY LMP: 12/27/2023 AGE BY US CRL: Baby 1: 7 weeks 0 days Baby 2: 7 weeks 1 day GEM BY US CRL: Baby 1: 01/06/2024 Baby 2: 01/05/2024 US/US OB transvaginal IMPRESSION: 1. Live twin intrauterine . Electronically authenticated by: DILLAN VALENCIA Date: 05/20/2023 10:43 Dictated By: Dillan Valencia M.D. Signed By: 05/20/23 1045 DD/ 1043 TD/TT: Research Professional: Procedure Note Radiology, Radiologist, MD - 05/20/2023 [place] [address] Ultrasound Report Signed Patient: THUY CORTEZMR#: [id number] : 1990Acct:[id number] Age/Sex: 33 / FADM Date: 05/20/23 Loc: [facility] Attending Dr: Darwin Dumont D.O. Ordering Physician: Darwin Dumont D.O. Date of Service: 05/20/23 Procedure(s): US OB transvaginal Accession Number(s): [id number] cc: LINDA SHEPPARD ; Darwin Dumont D.O. The [address] [address] Patient Name: THUY CORTEZ MRN: [id number] date: 1990 Sex: F Assigned Patient Location: [facility] Current Patient Location: [facility] Accession/Order Number: [id number] Exam Date: 05/20/2023 09:25 Report Date: 05/20/2023 10:43 At the request of: DARWIN DUMONT Procedure: US OB transvaginal EXAMINATION: US OB transvaginal HISTORY: Missed menses COMPARISON: No relevant comparison available. FINDINGS: GESTATIONAL SAC: Present YOLK SAC: Present x2 POLE: Present x2 CARDIAC: Present x2 UTERUS: Normal size and appearance. OVARIES: Right: Normal. Left: Not seen. CERVIX: 5.0 cm in length and closed. CUL-DE-SAC: Normal. OTHER: None. AGE BY LMP: 8 weeks 3 days GEM BY LMP: 12/27/2023 AGE BY US CRL: Baby 1: 7 weeks 0 days Baby 2: 7 weeks 1 day GEM BY US CRL: Baby 1: 01/06/2024 Baby 2: 01/05/2024 US/US OB transvaginal IMPRESSION: 1. Live twin intrauterine . Electronically authenticated by: DILLAN VALENCIA Date: 05/20/2023 10:43 Dictated By: Dillan Valencia M.D. Signed By:05/20/23 1045 DD/ 1043 TD/TT: Research Professional: Darwin Dumont DO [facility] Final Result documented in this encounter Visit Diagnoses Not on filedocumented in this encounter Care Teams Back Up Machine Operator Relationship Specialty Start Date End Date Linda Sheppard DO [address] [facility] [place] [phone] PCP - General Family Medicine 08/06/24 documented as of this encounter
--- OUTSIDE RECORDS SUMMARY | 2024-08-06 15:09 | XMS_ITS | Encounter Summary ---
Author Organization [facility] Address [address] [place] [address] Care Team Providers Care Supervisor Telephone Information Name Role Phone Linda Altman DO Primary Care Provider [phone] Encounter Details Date Type Department Care Team (Late Contact Info) Description 08/25/2023 Abstract [facility] OB [address], [place] [address] Mark Dumont [facility] [address], [facility] Social History Tobacco Use Types Packs/Day Years Used Date Smoking Tobacco: Never Assessed Comments Yes Sex and Gender Information Value Date Recorded Sex Assigned at Not on file Legal Sex Female 11:10 PM EDT Gender Identity Not on file Sexual Orientation Not on file documented as of this encounter Plan of Treatment Upcoming Encounters Date Type Department Care Team ([facility] Contact Info) Description 08/08/2025 9:00 AM EDT Office Visit [facility] OB [address], [place] [address] Mark Dumont DO [address] [facility] documented as of this encounter Visit Diagnoses Not on filedocumented in this encounter Care Teams Supervisor Telephone Information Relationship Specialty Start Date End Date Linda Altman DO [address] [place] [phone] PCP - General Family Medicine 08/06/24 documented as of this encounter
--- OUTSIDE RECORDS SUMMARY | 2024-08-06 15:09 | XMS_ITS | Clinical Summary ---
Author Organization [facility] Address [address] [employer] [address] Care Team Providers Care Donor Center Technician Name Role Phone Linda Altman DO Primary Care Provider [phone] Allergies No known active allergies Medications Semaglutide-Weight Management (WEGOVY) 1.7 MG/0.75ML SOAJ SC injection Inject 1.25 mg into the skin every 7 days Active ibuprofen (ADVIL;MOTRIN) 600 MG tablet Take 1 tablet by mouth every 6 hours as needed for Pain Active SUMAtriptan (IMITREX) 25 MG tablet Take 1 tablet by mouth once as needed for Migraine Active pantoprazole (PROTONIX) 40 MG tablet Take 1 tablet by mouth every morning (before breakfast) 30 tablet 07/30/19 25 Active dicyclomine (BENTYL) 20 MG tablet Take 1 tablet by mouth 3 times daily as needed (For abdominal cramps) 30 tablet 07/30/19 25 Active ondansetron (ZOFRAN) 4 MG tablet Take 1 tablet by mouth every 8 hours as needed for Nausea or Vomiting 12 tablet 07/30/19 25 Active ondansetron (ZOFRAN-ODT) 4 MG disintegrating tablet DISSOLVE 1 tablet on top OF tongue EVERY 6 HOURS if needed FOR NAUSEA AND VOMITING 07/05/19 24 025 Discontin ued(LIST CLEANUP) Vit-Fe Fumarate-FA ( VITAMINS PO) Take 1 tablet by mouth Daily 025 Discontin ued(LIST CLEANUP) aspirin 81 MG EC tablet Take 1 tablet by mouth daily 025 Discontin ued(LIST CLEANUP) omeprazole (PRILOSEC) 20 MG delayed release capsule TAKE 1 CAPSULE BY MOUTH AT BEDTIME - - do not crush or chew 09/06/19 24 025 Discontin ued(LIST CLEANUP) vitamin D (CHOLECALCIFEROL) 125 MCG (5000 UT) CAPS capsule Take by mouth once a week 03/20/19 025 Discontin ued(LIST CLEANUP) oxyCODONE-acetamin ophen (PERCOCET) 5-325 MG per tablet Take 1 tablet by mouth every 6 hours. 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 Nausea 04/08/2011 Depression 06/25/2010 Anxiety 06/25/2010 History of drug abuse 06/25/2010 Encounters Date Type Department Care Team Description 07/31/2024 5:51 AM EDT - 07/31/2024 9:07 AM EDT Emergency [facility] Emergency Department [address] [place] [address] Anuj Quinn MD Abdominal pain, epigastric (Primary Dx) Discharge Disposition: Home or Self Care 07/31/2024 Travel 07/29/2024 6:40 PM EDT - 07/29/2024 8:48 PM EDT Emergency [facility] Emergency Department [address] [place] [address] Nicholas Roger MD Abdominal pain, epigastric (Primary Dx) Discharge Disposition: Home or Self Care 07/29/2024 Travel from Last 3 Months Family History Medical History Relation Name Comments Diabetes Father Relation Name Status Comments Father Alive Mother Alive Social History Tobacco Use Types Packs/Day Years Used Date Smoking Tobacco: Former Cigarettes 0.5 13 Smokeless Tobacco: Never Tobacco Cessation:Counseling Given: No Alcohol Use Standard Drinks/Week Comments Not Currently [...] Mass Index 41.29 07/31/2024 5:55 AM EDT Plan of Treatment Health Maintenance Due Date Last Done Comments DTaP/Tdap/Td vaccine (5 - Tdap) 2001 10/06/1994, 10/21/1993, 01/07/1993, Additional history exists Depression Monitoring 2002 Varicella vaccine (1 of 2 - 13+ 2-dose series) 2003 HIV screen 2005 Hepatitis C screen 2008 Hepatitis B vaccine (1 of 3 - 19+ 3-dose series) 2009 Pap smear 04/05/2014 04/05/2011, 04/05/2011 Cervical cancer screen 2020 HPV (without or with Pap) 2020 COVID-19 Vaccine ( season) 2023 Flu vaccine (Season Ended) 2024 Hib vaccine Completed 10/21/1993, 1990 Polio vaccine Completed 10/06/1994, 10/05, 01/07/1993, Additional history exists HPV vaccine Aged Out No longer eligi ble based on patient's age to complete this topic Hepatitis A vaccine Aged Out No longe r eligible based on patient's age to complete this topic Meningococcal (ACWY) vaccine Aged Out No longer eligible based on patient's age to complete this topic Meningococcal B vaccine Aged Out No l onger eligible based on patient's age to complete this topic Pneumococcal 0-49 years Vaccine Aged Out No longer eligible based on patient's age to complete this topic Procedures Procedure Name Priority Date/Time Associated Diagnosis Comments CT ABDOMEN PELVIS W IV CONTRAST STAT 07/31/2024 7:23 AM EDT LIPASE STAT 07/31/2024 6:25 AM EDT HEPATIC FUNCTION PANEL STAT 07/31/2024 6:25 AM EDT CBC WITH AUTO DIFFERENTIAL STAT 07/31/2024 6:25 AM EDT BASIC METABOLIC PANEL STAT 07/31/2024 6:25 AM EDT MICROSCOPIC URINALYSIS Add-On 07/31/2024 5:57 AM EDT URINALYSIS WITH REFLEX TO CULTURE Stat [facility] Label print 07/31/2024 5:57 AM EDT LIPASE STAT 07/29/2024 7:43 PM EDT COMPREHENSIVE METABOLIC PANEL STAT 07/29/2024 7:43 PM EDT URINALYSIS Stat [employer] Label print 07/29/2024 7:15 PM EDT CBC WITH AUTO DIFFERENTIAL STAT 07/29/2024 7:15 PM EDT [facility] CYTOLOGY Routine 04/05/2011 12:49 PM EST from Last 3 Months or Most Recently Relevant to Health Maintenance Results * CT ABDOMEN PELVIS W IV [...] preferably with contrast on a nonemergent basis. us Anuj Quinn MD IMG CT ORDERABLES Final R esult * (ABNORMAL) CBC with Auto Differential (07/31/2024 6:25 AM EDT) Only the most recent of2 resultswithin the time period is included. WBC 7.7 3.5 - 11.0 k/uL 07/31/2024 6:25 AM EDT [facility] RBC 4.91 4.00 - 5.20 m/uL 07/31/2024 6:25 AM [facility] Hemoglobin 12.1 12.0 - 16.0 g/dL 07/31/2024 6:25 AM [facility] Hematocrit 37.7 36.0 - 46.0 % 07/31/2024 6:25 AM [facility] MCV 76.8(L) 80.0 - 100.0 fL 07/31/2024 6:25 AM EDT [facility] MCH 24.6(L) 26.0 - 34.0 pg 07/31/2024 6:25 AM ED [facility] MCHC 32.1 31.0 - 37.0 g/dL 07/31/2024 6:25 AM ED [facility] RDW 14.2 12.1 - 15.2 % 07/31/2024 6:25 AM ED [facility] Platelets 297 140 - 450 k/uL 07/31/2024 6:25 AM EDT [facility] MPV 10.4 6.0 - 12.0 fL 07/31/2024 6:25 AM ED [facility] Neutrophils % 72 47 - 75 % 07/31/2024 6:25 AM ED [facility] Lymphocytes % 19 15 - 40 % 07/31/2024 6:25 AM ED [facility] Monocytes % 7 4 - 8 % 07/31/2024 6:25 AM EDT [facility] Eosinophils % 2 0 - 5 % 07/31/2024 6:25 AM EDT [facility] Basophils % 0 0 - 2 % 07/31/2024 6:25 AM EDT [facility] Immature Granulocytes % 0 0 - 5 % 07/31/2024 6:25 AM EDT [facility] Neutrophils Absolute 5.47 2.5 - 7.0 k/uL 07/31/2024 6:25 AM EDT [facility] Lymphocytes Absolute 1.48 1.00 - 4.80 k/uL 07/31/2024 6:25 AM EDT [facility] Monocytes Absolute 0.55 0.00 - 1.00 k/uL 07/31/2024 6:25 AM EDT [facility] Eosinophils Absolute 0.13 0.00 - 0.40 k/uL 07/31/2024 6:25 AM EDT [facility] Basophils Absolute 0.02 0.00 - 0.20 k/uL 07/31/2024 6:25 AM EDT [facility] Immature Granulocytes Absolute 0.01 0.00 - 0.30 k/uL 07/31/2024 6:25 AM EDT [facility] Blood BLOOD SPECIMEN / Unknown 07/31/2024 6:25 AM EDT 07/31/2024 6:26 AM EDT Anuj Quinn MD HEMATOLOGY ORDERABLES Fin al Result Performing Organization Address City/State/[facility] Co de Phone Number [facility] [address] [place] [address], [facility] [phone] * Lipase (07/31/2024 6:25 AM EDT) Only the most recent of2 resultswithin the time period is included. Lipase 26 13 - 60 U/L 07/31/2024 6:25 AM EDT [facility] Blood BLOOD SPECIMEN / Unknown 07/31/2024 6:25 AM EDT 07/31/2024 6:26 AM EDT Anuj Quinn MD CHEMISTRY ORDERABLES Sharla l Result [facility] [address] [phone] * Hepatic Function Panel (07/31/2024 6:25 AM EDT) Albumin 4.5 3.5 - 5.2 g/dL 07/31/2024 6:25 AM EDT [facility] Alkaline Phosphatase 70 35 - 104 U/L 07/31/2024 6:25 AM EDT [facility] ALT 15 5 - 33 U/L 07/31/2024 6:25 AM EDT [facility] AST 19 <32 U/L 07/31/2024 6:25 AM EDT [facility] Total Bilirubin 0.3 0.3 - 1.2 mg/dL 07/31/2024 6:25 AM EDT [facility] Bilirubin, Direct 0.1 <0.3 mg/dL 07/31/2024 6:25 AM EDT [facility] Bilirubin, Indirect 0.2 0.0 - 1.0 mg/dL 07/31/2024 6:25 AM EDT [facility] Total Protein 7.8 6.4 - 8.3 g/dL 07/31/2024 6:25 AM EDT [facility] Globulin 3.3 1.5 - 3.8 g/dL 07/31/2024 6:25 AM EDT [facility] Albumin/Globulin Ratio 1.4 1.0 - 2.5 07/31/2024 6:25 AM EDT [facility] Blood BLOOD SPECIMEN / Unknown 07/31/2024 6:25 AM EDT 07/31/2024 6:26 AM EDT us Anuj Quinn MD CHEMISTRY ORDERABLES Sharla l Result [facility] [address] [place] [address], [facility] [phone] * BMP (07/31/2024 6:25 AM EDT) Sodium 139 135 - 144 mmol/L 07/31/2024 6:25 AM EDT [facility] Potassium 4.0 3.7 - 5.3 mmol/L 07/31/2024 6:25 AM EDT [facility] Chloride 104 98 - 107 mmol/L 07/31/2024 6:25 AM EDT [facility] CO2 22 20 - 31 mmol/L 07/31/2024 6:25 AM EDT [facility] Anion Gap 13 9 - 17 mmol/L 07/31/2024 6:25 AM EDT [facility] Glucose 88 70 - 99 mg/dL 07/31/2024 6:25 AM EDT [facility] BUN 17 6 - 20 mg/dL 07/31/2024 6:25 AM T [facility] Creatinine 0.6 0.5 - 0.9 mg/dL 07/31/2024 6:25 AM EDT [facility] Est, Glom Filt Rate >90 >60 mL/min/1.7 3m2 07/31/2024 6:25 AM EDT [facility] Comment: These results are not intended [...] - 10.4 mg/dL 07/31/2024 6:25 AM EDT [facility] Blood BLOOD SPECIMEN / Unknown 07/31/2024 6:25 AM EDT 07/31/2024 6:26 AM EDT us Anuj Quinn MD CHEMISTRY ORDERABLES Sharla jones Result [facility] [address] [place] [address], [facility] [phone] * (ABNORMAL) Urinalysis with Reflex to Culture (07/31/2024 5:57 AM EDT) Color, UA Yellow Yellow 07/31/2024 5:57 AM EDT [facility] Turbidity UA Clear Clear 07/31/2024 5:57 AM EDT [facility] Glucose, Ur NEGATIVE NEGATIVE mg/dL 07/31/2024 5:57 AM EDT [facility] Bilirubin, Urine NEGATIVE NEGATIVE 07/31/2024 5:57 AM EDT [facility] Ketones, Urine NEGATIVE NEGATIVE mg/dL 07/31/2024 5:57 AM EDT [facility] Specific Cardinal, UA 1.015 1.005 - 1.030 07/31/2024 5:57 AM EDT [facility] Urine Hgb NEGATIVE NEGATIVE 07/31/2024 5:57 AM EDT [facility] pH, Urine 6.5 5.0 - 8.0 07/31/2024 5:57 AM EDT [facility] Protein, UA 1+(A) NEGATIVE mg/dL 07/31/2024 5:57 AM EDT [facility] Urobilinogen, Urine Normal 0.0 - 1.0 EU/dL 07/31/2024 5:57 AM EDT [facility] Nitrite, Urine NEGATIVE NEGATIVE 07/31/2024 5:57 AM EDT [facility] Leukocyte Esterase, Urine NEGATIVE NEGATIVE 07/31/2024 5:57 AM EDT [facility] Comment 07/31/2024 5:57 AM EDT [facility] Urine 07/31/2024 5:57 AM EDT 07/31/2024 5:58 AM EDT us Anuj Quinn MD URINE ORDERABLES Final Re sult [facility] [address] [place] [address], [facility] [phone] * (ABNORMAL) Microscopic Urinalysis (07/31/2024 5:57 AM EDT) WBC, UA 2 TO 5 0 /HPF 07/31/2024 5:57 AM EDT [facility] RBC, UA 2 TO 5 0 - 2 /HPF 07/31/2024 5:57 AM EDT [facility] Epithelial Cells, UA 10 TO 20 /HPF 07/31/2024 5:57 AM EDT [facility] Bacteria, UA 2+(A) None 07/31/2024 5:57 AM EDT [facility] - 07/31/2024 5:57 AM EDT [facility] 07/31/2024 5:57 AM EDT 07/31/2024 5:58 AM EDT us Anuj Quinn MD URINE ORDERABLES Final Re sult [facility] [address] [place] [address], [facility] [phone] * Comprehensive Metabolic Panel (07/29/2024 7:43 PM EDT) Sodium 139 135 - 144 mmol/L 07/29/2024 7:43 PM EDT [facility] Potassium 4.1 3.7 - 5.3 mmol/L 07/29/2024 7:43 PM EDT [facility] Chloride 101 98 - 107 mmol/L 07/29/2024 7:43 PM EDT [facility] CO2 26 20 - 31 mmol/L 07/29/2024 7:43 PM EDT [facility] Anion Gap 12 9 - 17 mmol/L 07/29/2024 7:43 PM EDT [facility] Glucose 91 70 - 99 mg/dL 07/29/2024 7:43 PM EDT [facility] BUN 15 6 - 20 mg/dL 07/29/2024 7:43 PM EDT [facility] Creatinine 0.7 0.5 - 0.9 mg/dL 07/29/2024 7:43 PM EDT [facility] Est, Glom Filt Rate >90 >60 mL/min/1.7 3m2 07/29/2024 7:43 PM EDT [facility] Comment: These results are not intended [...] 8.6 - 10.4 mg/dL 07/29/2024 7:43 PM EDT [facility] Total Protein 7.8 6.4 - 8.3 g/dL 07/29/2024 7:43 PM EDT [facility] Albumin 4.6 3.5 - 5.2 g/dL 07/29/2024 7:43 PM EDT [facility] Albumin/Globulin Ratio 1.4 1.0 - 2.5 07/29/2024 7:43 PM EDT [facility] Total Bilirubin 0.3 0.3 - 1.2 mg/dL 07/29/2024 7:43 PM EDT [facility] Alkaline Phosphatase 65 35 - 104 U/L 07/29/2024 7:43 PM EDT [facility] ALT 15 5 - 33 U/L 07/29/2024 7:43 PM EDT [facility] AST 18 <32 U/L 07/29/2024 7:43 PM EDT [facility] Blood BLOOD SPECIMEN / Unknown 07/29/2024 7:43 PM EDT 07/29/2024 7:51 PM EDT us Nicholas Roger MD CHEMISTRY ORDERABLES Final R esult [facility] [address] [place] [address], [facility] [phone] * (ABNORMAL) Urinalysis (07/29/2024 7:15 PM EDT) Color, UA Yellow Yellow 07/29/2024 7:15 PM EDT [facility] Turbidity UA Clear Clear 07/29/2024 7:15 PM EDT [facility] Glucose, Ur NEGATIVE NEGATIVE mg/dL 07/29/2024 7:15 PM EDT [facility] Bilirubin, Urine NEGATIVE NEGATIVE 07/29/2024 7:15 PM EDT [facility] Ketones, Urine NEGATIVE NEGATIVE mg/dL 07/29/2024 7:15 PM EDT [facility] Specific Cardinal, UA 1.020 1.005 - 1.030 07/29/2024 7:15 PM EDT [facility] Urine Hgb NEGATIVE NEGATIVE 07/29/2024 7:15 PM EDT [facility] pH, Urine 6.0 5.0 - 8.0 07/29/2024 7:15 PM EDT [facility] Protein, UA TRACE(A) NEGATIVE mg/dL 07/29/2024 7:15 PM EDT [facility] Urobilinogen, Urine Normal 0.0 - 1.0 EU/dL 07/29/2024 7:15 PM EDT [facility] Nitrite, Urine NEGATIVE NEGATIVE 07/29/2024 7:15 PM EDT [facility] Leukocyte Esterase, Urine NEGATIVE NEGATIVE 07/29/2024 7:15 PM EDT [facility] Comment 07/29/2024 7:15 PM EDT [facility] Urine URINE SPECIMEN / Unknown 07/29/2024 7:15 PM EDT 07/29/2024 7:27 PM EDT us Nicholas Roger MD URINE ORDERABLES Final Resul t [facility] [address] [place], [place] [address] [phone] * [facility] Cytology (04/05/2011 12:49 PM EST) Cytology Report (NOTE) [id number] [facility] ANATOMIC PATHOLOG[facility] [address] [place] [address]. [place], [place] [address] GYNECOLOGIC CYTOLOGY REPORT * AMENDED * Patient Name: THUY LEVIN MR#: [id number] Specimen #[id number] Amendments Amended: 08/15/2012 by CONRADO Salazar(ASCP) Reason: Major-Modify Diagnosis Previous Signout Date: 04/12/2011 Procedure/Addendum HPV Procedure Report Date Ordered: 04/12/2011 Status: Signed Out Date Complete: 04/12/2011 By: CONRADO Salazar(ASCP) Date Reported: 04/19/2011 INTERPRETATION CERVISTA HPV DNA High Risk: NOT DETECTED (Reference Range: not detected) Test information: Patients without infection by High-Risk HPV genotypes: 16,18,31,33,35,39, 45,51,52,56,58,59, 66, 68, rarely have precancerous lesions or cancer of the cervix. Note: A negative result does not rule out the presence of an HPV genotype absent from test panel, a low level infection, or specimen sampling error. Final Diagnosis CERVICAL-ENDOCERVI SERENA MATERIAL, (THIN PREP VIAL): Specimen Adequacy: Satisfactory for evaluation. - Endocervical/trans formation zone component present. Descriptive Diagnosis: Low-grade squamous intraepithelial lesion (LSIL). Comment: This is an amended report. The case was discussed with Dr. Laird, August 14, 2012. Repeat Pap with high risk HPV testing regardless of Pap result is recommended. Aurelio Hernández M.D. Electronically Signed Out dga/04/12/2011 Source: 1: CERVICAL-ENDOCERVI SERENA MATERIAL, (THIN PREP VIAL) 08/15/2012 12:00 AM EDT [facility] 04/05/2011 12:4 9 PM EST 04/06/2011 12:49 PM EST us Macy Laird MD PATHOLOGY/CYTOLOGY ORDERABLE S Edited Result - Final [facility] [address] [place] [address], [facility] [phone] from Last 3 Months or Most Recently Relevant to Health Maintenance Insurance [facility] Advance Directives * Full Code (Latest Code Status on File) Date Activated Date Inactivated Comments 10/05/2023 9:02 PM 10/06/2023 12:12 AM Care Teams Donor Center Technician Relationship Specialty Start Date End Date Linda Altman DO [address] [place] [id number] PCP - General Family Medicine 09/04/22
[2024-08-08 18:08] LABS: Age Gdln ACOG Testing Note (.); HPV Aptima Negative (Negative); IGP, Aptima HPV, rfx 16/18,45 Note (.)
== END 2024-08-06 15:06 | disposition home or self-care (01) ==
LOC: LAB 15:05
PROVIDERS: Visit Provider Obstetrics & Gynecology
DX: Z01.419 Encounter for gynecological examination (general) (routine) without abnormal findings (principal)
CPT/HCPCS: 87624; 88175